=== PATIENT | male | born 1940 | race Caucasian/White ===

== ENCOUNTER 2017-05-30 09:22 | Outpatient (RCR) | payer MEDICARE, SELFPAY ==
[2017-05-30 09:46] VITALS: BP 137/86; PULSE 81; RESP 18; TEMP 36.7; BMI 34.2
--- NOTE | 2017-05-30 10:38 | HP.PCM_ITS ---
(1) Traumatic open wound of left lower leg Status: Acute Current Visit: Yes Code(s): S81.802A - Unspecified open wound , left lower leg, initial encounter (2) Open wound of left lower leg Status: Acute Current Visit: Yes Qualifiers: Code(s): S81.802A - Unspecified open wound, left lower leg, initial encounter History of Present Illness Date of Service: 05/30/17 Chief Complaint: Follow-up left lower leg injury History of Wound: 76-year-old white male that had an injury to his left lower leg that became infected and developed cellulitis was seen in the emergency room and put on clindamycin 4 times a day. Patient has a scabbed ulcer on the left lower lateral leg no sign of cellulitis no sign of discharge or smell scab is solid and not soft. Past Medical History Past Medical History: Chronic Problems Prostate ca (Chronic) Osteoarthritis (Chronic) Hypertension (Chronic) Asthma (Chronic) Diverticulosis (Chronic) HLD (hyperlipidemia) (Chronic) Pulmonary nodule (Chronic) Iron deficiency anemia (Chronic) GERD (gastroesophageal reflux disease) (Chronic) Macular degeneration (Chronic) Pleural plaque (Chronic) Rheumatoid arthritis (Chronic) Allergic rhinitis (Chronic) History of prostate cancer (Chronic) Right leg swelling (Chronic) Pain in right leg (Chronic) Penetrating injury right leg (Chronic) Obesity (Chronic) Surgical History: - - Umbilical hernia repair, appendectomy, bilateral carpal tunnel surgery, Prostatectomy, Cataract surgery, L lens implant, L knee surgery followed by LTKR, L shoulder surgery, left total hip replacement. Allergies/Adverse Reactions: Allergies indomethacin [From Indocin] Allergy (Verified 05/27/17 13:00) Itching indomethacin sodium [From Indocin] Allergy (Verified 05/27/17 13:00) Itching oxycodone HCl [From Percocet] Allergy (Verified 05/27/17 13:00) Itching Home Medications: Ambulatory Orders Medication Instructions Recorded Albuterol Sulfate [Proventil Hfa] 2 puff IH BID 07/13/13 Azelastine HCl [Astelin] 1 spray NASAL BID 07/13/13 Epinephrine [Epi Pen] 0.3 mg SC PRN PRN 07/13/13 Fluticasone 0.05% [Flonase Nasal 2 spray NASAL BID 07/13/13 [place]] Montelukast [Singulair] 10 mg PO QHS 07/13/13 Sertraline HCl [Zoloft] 150 mg PO DAILY 07/13/13 Tiotropium [place] [Spiriva 18 MCG] 1 puff INHALATION DAILY 07/13/13 Atorvastatin Calcium [Lipitor] 10 mg PO QHS 10/26/14 Lisinopril [Zestril] 20 mg PO DAILY 10/26/14 Omalizumab [Xolair] 2.4 ml SQ Q28D 10/26/14 Ferrous Sulfate 325 mg PO BID 07/14/15 Folic Acid 2 mg PO DAILY@0800 07/14/15 Methotrexate 5 mg PO Q7D 07/14/15 Multivitamin [Daily Multiple 1 each PO DAILY 07/14/15 Vitamin] Omeprazole [Prilosec] 20 mg PO DAILY 07/14/15 Polyethylene Glycol 3350 [Miralax] 17 gm PO DAILY 07/14/15 Vits A,C,E/Lutein/Minerals 1 each PO BID 07/14/15 [Ocuvite with Lutein Tablet] Fluticasone/Salmeterol [Advair Hfa 2 puff INHALATION BID 09/03/16 230-21 Mcg Inhaler] Ipratropium [Atrovent] 0.5 mg INHALATION 4X/DAY PRN 09/03/16 Doxycycline [Vibramycin] 100 mg PO BID #20 capsule 01/12/17 Guaifenesin [Mucinex] 600 mg PO BID 01/12/17 Rivaroxaban [Xarelto] 15 mg PO DAILY 01/31/17 Clindamycin HCl 300 mg PO 4X/DAY #30 cap 05/27/17 - Family History Sibling Diabetes, Renal Disease, - - Patient's father at the age of 76 with history of colon cancer myocardial infarction. Patient's mother at age of 86 with a history of breast cancer. Maternal Cancer Paternal Cancer Lives: Spouse/ Significant Other Smoking Status: Never smoker Tobacco Use: Non-smoker Alcohol: None Review of Systems Constitutional: Denies: Chills, Fever Eyes: Denies: Blurred vision, Drainage, Pain HEENT: Denies: Difficulty Hearing, Difficulty Swallowing, Sore Throat, Visual Changes Cardiovascular: Denies: Chest Pain, Palpitations, Syncope Respiratory: Denies: Cough, Shortness of Breath Gastrointestinal: Denies: Abdominal Pain, Nausea, Vomiting Genitourinary: Denies: Dysuria, Frequency Musculoskeletal: Denies: Joint Pain, Muscle pain Skin: Denies: Jaundice, Rash Neurological: Denies: Balance problems, Change in Speech, Difficulty swallowing , Focal weakness Psychiatric: Denies: Anxiety, Depression Endocrine: Denies: Change in Body Habitus Hematologic/ Lymphatic: Denies: Adenopathy - Physical Exam Vital Signs Temp Pulse Resp BP 98.0 F 81 18 137/86 H 05/30/17 09:46 05/30/17 09:46 05/30/17 09:46 05/30/17 09:46 General: Oriented x3, Cooperative, Well developed HEENT: Atraumatic, PERRLA Oral: Moist Mucosa Neck: Supple, No JVD Lungs: Clear to auscultation, Normal air movement Cardiovascular: Regular rate, Regular Rhythm Abdomen: Bowel Sounds Present, Soft, Non Tender, No Hepato-splenomegaly Extremities: No clubbing, Edema Skin: - - Scabbed ulcer left lateral lower leg Wound Measurements and Assessment - Nurse 1 - General Ulcer Measurement Start: 05/30/17 09:46 Freq: Status: Active Protocol: Activity Type Activity Date Activity User E-Sign Co-Sign Detail Recorded Client Recorded Date Recorded By Document 05/30/17 09:46 DV [id number] 05/30/17 10:04 DV 05/30/17 09:46 Wound Center Nurse 1 [Ulcer Assessment Protocol: JERRY.WD.LOC] #6 Left Lateral Calf -Combined with other wound No -Current Size (cm) - Length 2.0 -Current Size (cm) - Width 1.8 -Current Size (cm) - Depth 0.1 -Total Square Cm 3.60 -Photo Taken Yes -Epithelialization None Present -Tunneling No -Undermining/Tunneling No -Circular Undermining No -Classification - Thickness Full Thickness without Exposed Support Structure -Exudate Amt None Present (0 %) -Wound Margin Indistinct, Non -Visible -Granulation Amt None Present (0 %) -Granulation Quality N/A -Slough/Fibrin Yes -Necrosis Amt Large (67-100%) -Necrotic Tissue Type Adherent Slough -Structure Exposed N/A -Texture (Karin-wound Skin Appearance) Assessed Localized Edema -Moisture (Karin-wound Skin Appearance No Abnormality ) Assessed -Color (Karin-wound Skin Appearance) Assessed Erythema Hemosiderin Staining -Temperature (Karin-wound Skin No Abnormality Appearance) (Pt Warm) -Ulcer Cleansing Rinsed/ Irrigated with Saline -Foul Odor after Cleansing No -Anesthetic Used 5% Lidocaine Gel [Edema Assessment] -Lower Limb Edema Present Yes -Right Calf (cm) 39.8 -Right Ankle (cm) 26.1 -Left Calf (cm) 40.0 -Left Ankle (cm) 26.0 Musculoskeletal: No Tenderness to Palpation of Joints or Extremities Lymphatic: No Cervical, Supraclavicular, or Inguinal Adenopathy Neurological: Cranial nerves II-XII grossly intact, Neuro grossly intact Psych/Mental Status: Normal Affect, Appropriate Debridement Note No debridement was completed today Assessment/Plan Active Problems Open wound of left lower leg (Acute) Traumatic open wound of left lower leg (Acute) Assessment: Traumatic ulcer left lower lateral leg. Risk for falls Plan: In prep to the left lateral lower leg cover with gauze dressing. Continue the clindamycin until it done with food. Aloe up as needed
== END 2017-06-18 23:59 ==
LOC: WC 09:22
PROVIDERS: Family Provider Internal Medicine; PCP Internal Medicine; Visit Provider Nurse Practitioner
DX: S81.802A Unspecified open wound, left lower leg, initial encounter (principal); X58.XXXA Exposure to other specified factors, initial encounter; M19.90 Unspecified osteoarthritis, unspecified site; I10 Essential (primary) hypertension; E78.5 Hyperlipidemia, unspecified; J45.909 Unspecified asthma, uncomplicated; R91.1 Solitary pulmonary nodule; D50.9 Iron deficiency anemia, unspecified; K21.9 Gastro-esophageal reflux disease without esophagitis; H35.30 Unspecified macular degeneration; M79.89 Other specified soft tissue disorders; M06.9 Rheumatoid arthritis, unspecified; E66.9 Obesity, unspecified; Z85.46 Personal history of malignant neoplasm of prostate; Z68.34 Body mass index [BMI] 34.0-34.9, adult; Z71.3 Dietary counseling and surveillance; Z79.899 Other long term (current) drug therapy; Z79.51 Long term (current) use of inhaled steroids; Z79.01 Long term (current) use of anticoagulants
CPT/HCPCS: 99212; G0463

== ENCOUNTER 2017-06-22 07:20 | Emergency (ER) | payer MEDICARE, SELFPAY ==
[2017-06-22 07:21] VITALS: BP 141/69; PULSE 109; RESP 16; TEMP 37.5; O2SAT 94; BMI 34.4
--- NOTE | 2017-06-22 07:32 | EKG12_ITS ---
Test Reason : SOB Blood Pressure : / mmHG Vent. Rate : 103 BPM Atrial Rate : 103 BPM P-R Int : 116 ms QRS Dur : 094 ms QT Int : 326 ms P-R-T Axes : 035 048 012 degrees QTc Int : 427 ms Sinus tachycardia Otherwise normal ECG Confirmed by SINAI MOULTON, JAMES ([id number]), rewrite editor YARON WOODS ([id number]) on 06/24/2017 10:09:14 AM Referred By: HAMMAD Confirmed By:JAMES RAWLS MD
--- NOTE | 2017-06-22 07:32 | RAD_ITS ---
STUDY: X-RAY CHEST REASON FOR EXAM: Male, 76 years old. Shortness of breath. TECHNIQUE: PA and lateral views of the chest. COMPARISON: July 14, 2015. FINDINGS: There is mild elevation of the right hemidiaphragm. The left lung is expanded. There is interstitial thickening visible in both lungs. There is left basilar airspace consolidation. There are multiple calcifications probably related to calcified pleural plaques. This is unchanged since the previous radiograph. There is borderline cardiomegaly. Normal mediastinum and mamadou. Normal visualized pulmonary arteries. There is atherosclerotic calcification of the aortic arch with tortuosity. There is demineralization of the osseous structures. The patient has had previous surgery on the left shoulder. There is no demonstrated abnormality of the visualized soft tissue structures of the upper abdomen. RAD/Chest PA and Lateral IMPRESSION: 1. Patchy left basilar airspace consolidation possibly representing pneumonia. 2. Unchanged appearance to calcified pleural plaques. Electronically Signed: Yessenia Joya MD at 8:54 EST , Service support ,
--- NOTE | 2017-06-22 07:36 | ED.VISSUMM ---
- ER Visit Summary Date of Service: 06/22/17 Chief Complaint: Shortness of breath History of Present Illness: The patient is a 76 M with progressive shortness of breath for the past 2 days, especially with exertion. Patient denies chest pain. He has had mild cough with clear sputum. He has had mild wheezing. He uses albuterol inhalers approximately 4 hours. Past history significant for asthma, hypertension, high cholesterol, and PE. He is currently on Xarelto. Physical Examination: Blood pressure is 141/69, temperature 99.5, heart rate 109, respiratory rate 16, pulse ox 94% on room air. Patient is an obese gentleman sitting upright in bed. He is in no acute distress and is speaking full sentences. Head and neck examination is normal. Heart is regular rate and rhythm. Lung sounds are with occasional expiratory wheeze. Overall good air movement throughout. Abdomen is soft nontender. Lower external examination reveals no significant calf tenderness or edema. Test Results: EKG is sinus tach at [address] change. CBC was normal white count with a left shift. Chemistry studies are gross unremarkable. Troponin is less than 0.02. BNP is normal. Two-view chest x-ray reveals patchy left basilar consolidation possibly representing pneumonia. Unchanged calcified plaques are noted. Emergency Department Course and Treatment: Patient is given a DuoNeb treatment. On repeat evaluation had slight increased wheezing but better air movement throughout. Additional albuterol was given along with p.o. Levaquin. Patient was ambulated. His pulse ox dropped to 91% with ambulation the patient was conversational throughout. Patient be treated with 4 additional days of Levaquin. He has albuterol at home that he will use. He is encouraged to return if he worsens. Treatment Plan: [] Disposition: Discharge Impression: Community acquired pneumonia This note was generated with [employer] dictation software. It may contain incorrect words, spelling, and punctuation that were not noted in review of the chart prior to signing ED Disposition - Plan for ED Patient: Chief Complaint: Shortness of Breath Referrals: Lambert Larios MD [Primary Care Provider] -
[2017-06-22] MEDS: Ipratropium/Albuterol Sulfate 3 ML AMPUL.NEB INHALATION (07:45)
[2017-06-22 07:46] VITALS: O2SAT 94
[2017-06-22 07:48] VITALS: PULSE 93; RESP 18
[2017-06-22 07:56] LABS: Absolute Lymphocyte Count 0.59 X10^3/ul (0.83-4.51); Absolute Neutrophil Count 7.4 X10^3/uL (2.0-7.7); Basophil# 0.01 X10^3/uL; Basophil% 0.1 % (0-1); Eosinophil# 0.02 X10^3/uL; Eosinophils% 0.2 % (0-5); Hematocrit 39.5 % (40-54); Hemoglobin 12.7 g/dl (13.0-16.5); Lymphocyte # 0.59 X10^3/ul (4.0); Lymphocyte % 6.5 % (19-41); Mean Corp Hgb Conc 32.2 g/gl (32-36); Mean Platelet Vol. 9.8 fl (6.2-12.0); Monocyte# 0.96 X10^3/uL; Monocyte% 10.6 % (0-10); Neutrophil # 7.42 X10^3/uL (2.7-7.7); Neutrophil % 82.4 % (47-70); Platelet Count 147 K/mm3 (150-450); RBC Distribution Width CV 16.3 % (11.6-14.6); RBC Distribution Width SD 51.9 fl (35.1-43.9); Red Blood Count 4.54 M/mm3 (4.6-6.2)
[2017-06-22 07:57] LABS: Differential Indicated SCAN CRITERIA MET; POSITIVE COUNT NO; POSITIVE DIFFERENTIAL YES; POSITIVE MORPHOLOGY NO
[2017-06-22 08:06] LABS: Anion Gap 10 (5-15); BUN 20 mg/dL (7-18); BUN/Creat Ratio 16.3 RATIO (10-20); Calcium,Total 8.9 mg/dL (8.5-10.1); Chloride 103 mmol/L (98-107); Creatinine, Serum 1.23 mg/dL (0.70-1.30); EST Glomerular Filtration Rate 60 mL/min (>60); Est Glom Filt Rate - Afr Amer 73 mL/min (>60); Estimated Creatinine Clearance 44.67 ml/min; Glucose 138 mg/dL (74-106); Sodium Level 135 mmol/L (136-145)
[2017-06-22 08:20] LABS: BNP,B-Type NATRIURETIC PEPTIDE 27.7 pg/mL (0-100)
[2017-06-22 08:31] VITALS: PULSE 111; RESP 18
[2017-06-22] MEDS: Albuterol 2.5 MG/3 ML VIAL.NEB. INHALATION (08:31)
[2017-06-22] MEDS: levoFLOXacin 750 MG Tablet PO (09:04)
--- NOTE | 2017-06-22 09:04 | ED.DEP ---
ED Disposition - Plan for ED Patient: Disposition: Home or Assisted Living Chief Complaint: Shortness of Breath Instructions: ED Pneumonia Adult Prescriptions: Levofloxacin [Levaquin] 750 mg PO DAILY #4 tablet Referrals: Lambert Larios MD [Primary Care Provider] - 1 Week
[2017-06-22 09:13] VITALS: BP 145/89; PULSE 95; RESP 16; O2SAT 97
== END 2017-06-22 09:23 | disposition home or self-care (01) ==
PROVIDERS: Emergency Provider Emergency Medicine; Family Provider Internal Medicine; PCP Internal Medicine
DX: J18.9 Pneumonia, unspecified organism (principal); J45.909 Unspecified asthma, uncomplicated; I10 Essential (primary) hypertension; E78.00 Pure hypercholesterolemia, unspecified; Z86.711 Personal history of pulmonary embolism; Z79.01 Long term (current) use of anticoagulants; F41.9 Anxiety disorder, unspecified; E66.9 Obesity, unspecified; Z68.34 Body mass index [BMI] 34.0-34.9, adult; Z85.46 Personal history of malignant neoplasm of prostate; Z79.899 Other long term (current) drug therapy
CPT/HCPCS: 71046; 80048; 83880; 84484; 85025; 93005; 94640; 99285; A4216

== ENCOUNTER → 2017-07-10 13:57 | Outpatient (CLI) | payer MEDICARE, SELFPAY ==
[2017-07-10 15:51] LABS: ALB/GLOB Ratio 0.8 RATIO (0.9-2.4); AST(SGOT) 28 U/L (15-37); Alanine Aminotransfer ALT/SGPT 36 U/L (16-61); Albumin, Serum 3.4 g/dL (3.2-5.0); Alkaline Phosphatase 77 U/L (45-117); Anion Gap 7 (5-15); BUN 25 mg/dL (7-18); BUN/Creat Ratio 23.6 RATIO (10-20); Calcium,Total 8.7 mg/dL (8.5-10.1); Chloride 106 mmol/L (98-107); Creatinine, Serum 1.06 mg/dL (0.70-1.30); EST Glomerular Filtration Rate 72 mL/min (>60); Est Glom Filt Rate - Afr Amer 87 mL/min (>60); Globulin 4.3 g/dL (2.2-4.2); Glucose 101 mg/dL (74-106); Potassium 4.7 mmol/L (3.5-5.1); Protein, Total 7.7 g/dL (6.4-8.2); Sodium Level 137 mmol/L (136-145)
[2017-07-10 16:09] LABS: Absolute Lymphocyte Count 1.23 X10^3/ul (0.83-4.51); Basophil# 0.01 X10^3/uL; Basophil% 0.1 % (0-1); Eosinophil# 0.07 X10^3/uL; Hematocrit 40.1 % (40-54); Hemoglobin 12.7 g/dl (13.0-16.5); Lymphocyte # 1.23 X10^3/ul (4.0); Lymphocyte % 17.5 % (19-41); Mean Corp Hgb Conc 31.7 g/gl (32-36); Mean Corpuscular Hgb 28.1 pg (27.0-32.0); Mean Corpuscular Volume 88.7 fL (80-94); Mean Platelet Vol. 10.4 fl (6.2-12.0); Monocyte# 0.65 X10^3/uL; Monocyte% 9.3 % (0-10); Neutrophil # 5.01 X10^3/uL (2.7-7.7); Neutrophil % 71.4 % (47-70); Platelet Count 230 K/mm3 (150-450); RBC Distribution Width CV 15.7 % (11.6-14.6); RBC Distribution Width SD 50.3 fl (35.1-43.9); Red Blood Count 4.52 M/mm3 (4.6-6.2)
[2017-07-10 16:10] LABS: POSITIVE COUNT NO; POSITIVE DIFFERENTIAL NO; POSITIVE MORPHOLOGY NO
== END ==
PROVIDERS: Family Provider Internal Medicine; PCP Internal Medicine; Visit Provider Internal Medicine Rheumatology
DX: M05.79 Rheumatoid arthritis with rheumatoid factor of multiple sites without organ or systems involvement (principal); M17.0 Bilateral primary osteoarthritis of knee; M18.0 Bilateral primary osteoarthritis of first carpometacarpal joints; Z79.899 Other long term (current) drug therapy
CPT/HCPCS: 36415; 80053; 85025

== ENCOUNTER 2017-09-05 15:02 | Emergency (ER) | payer MEDICARE, SELFPAY ==
[2017-09-05 15:03] VITALS: BP 132/77; PULSE 112; RESP 18; TEMP 36.8; O2SAT 97; BMI 38.5
--- NOTE | 2017-09-05 15:13 | EKG12_ITS ---
Test Reason : Blood Pressure : / mmHG Vent. Rate : 107 BPM Atrial Rate : 107 BPM P-R Int : 128 ms QRS Dur : 082 ms QT Int : 326 ms P-R-T Axes : 052 058 050 degrees QTc Int : 435 ms Sinus tachycardia Otherwise normal ECG Confirmed by SINAI MOULTON, JAMES ([id number]), manuscript editor YARON WOODS ([id number]) on 09/08/2017 2:21:58 PM Referred By: Prasanth Meier Confirmed By:JAMES RAWLS MD
[2017-09-05 15:17] VITALS: PULSE 108
[2017-09-05] MEDS: Ondansetron 4 MG/2 ML Vial IV (15:20)
[2017-09-05] MEDS: Morphine 2 MG/ML Syringe IV (15:20)
[2017-09-05] MEDS: 0.9% Normal Saline 1,000 ML 150 ML IV (15:20)
[2017-09-05] MEDS: Diphth,Pertuss(Acell),Tet Vac 0.5 ML Vial IM (15:21)
[2017-09-05 15:28] LABS: Anion Gap 7 (5-15); BUN 28 mg/dL (7-18); BUN/Creat Ratio 20.7 RATIO (10-20); Calcium,Total 8.2 mg/dL (8.5-10.1); Chloride 110 mmol/L (98-107); Creatinine, Serum 1.35 mg/dL (0.70-1.30); EST Glomerular Filtration Rate 54 mL/min (>60); Est Glom Filt Rate - Afr Amer 66 mL/min (>60); Estimated Creatinine Clearance 37.76 ml/min; Glucose 167 mg/dL (74-106); International Normalized Ratio 1.7; Potassium 5.2 mmol/L (3.5-5.1); Prothrombin Time (Protime)PT. 19.8 SECONDS (11.7-14.9); Sodium Level 139 mmol/L (136-145)
[2017-09-05 15:29] LABS: Partial Thromboplast Time 41.1 Seconds (24.1-36.2)
--- NOTE | 2017-09-05 15:30 | RAD_ITS ---
STUDY: X-RAY - LEFT TIBIA AND FIBULA REASON FOR EXAM: Male, 76 years old. Soft tissue injury. TECHNIQUE: 4 view(s) of the tibia and fibula were obtained. COMPARISON: None. FINDINGS: Normal visualized tibia. Normal visualized fibula. Small plantar spur. 2. Patient status post total knee replacement. Soft tissue injury and laceration overlying the lateral aspect of the leg. The bony structures are unremarkable. RAD/Tibia & Fibula 2 Views IMPRESSION: Soft tissue injury and laceration. No radiopaque foreign body is seen. Electronically Signed: Antonio Kahn MD at 15:50 EDT Tel [phone], Service support ,
[2017-09-05 15:36] LABS: Absolute Lymphocyte Count 0.64 X10^3/ul (0.83-4.51); Absolute Neutrophil Count 6.7 X10^3/uL (2.0-7.7); Basophil# 0.01 X10^3/uL; Basophil% 0.1 % (0-1); Eosinophil# 0.01 X10^3/uL; Eosinophils% 0.1 % (0-5); Hematocrit 36.3 % (40-54); Hemoglobin 11.5 g/dl (13.0-16.5); Lymphocyte # 0.64 X10^3/ul (4.0); Lymphocyte % 8.1 % (19-41); Mean Corp Hgb Conc 31.7 g/gl (32-36); Mean Corpuscular Hgb 28.3 pg (27.0-32.0); Mean Corpuscular Volume 89.4 fL (80-94); Mean Platelet Vol. 10.1 fl (6.2-12.0); Monocyte# 0.55 X10^3/uL; Monocyte% 6.9 % (0-10); Neutrophil # 6.69 X10^3/uL (2.7-7.7); Neutrophil % 84.2 % (47-70); Platelet Count 167 K/mm3 (150-450); RBC Distribution Width CV 15.2 % (11.6-14.6); RBC Distribution Width SD 49.2 fl (35.1-43.9); Red Blood Count 4.06 M/mm3 (4.6-6.2)
[2017-09-05 15:50] LABS: POSITIVE COUNT NO; POSITIVE DIFFERENTIAL NO; POSITIVE MORPHOLOGY NO
[2017-09-05] MEDS: Cefazolin 2 GM in 0.9% Normal Saline 100 ML IV (16:14)
--- NOTE | 2017-09-06 00:47 | ED.DCSUM_ITS ---
- ER Visit Summary Date of Service: 09/06/17 Chief Complaint: Leg laceration History of Present Illness: The patient is a 76 M who was outside when he sustained a mechanical fall falling on a steel rake. He caused laceration to his left lateral leg. He is on Xarelto for pulmonary embolism. EMS applied pressure control bleeding and brought him to the emergency room. Tetanus is unknown. Physical Examination: Afebrile slightly tachycardic at 108. He is normotensive. Left lateral leg shows an approximately 29 cm laceration through subcutaneous tissue. It does not appear to violate the muscle fascia. There is no exposed bone. There is no active bleeding. Patient has strong dorsalis pedis and posterior tibial pulses. Neurovascularly intact distally. He does have lymphedema slightly pitting. Test Results: Tib-fib films were negative for fracture. Basic labs negative. Emergency Department Course and Treatment: Patient received IV fluids and Ancef. His tetanus was updated. Plastic surgery is unavailable at this time. We irrigated the wound with approximately 1000 cc of sterile saline. The wound was locally anesthetized using small amount of 1% lidocaine. Part of the wound was under significant tension and horizontal mattresses were applied to help remove the tension. Then simple interrupted sutures were then used to close the wound. All the wound was able to be approximated except for about 1-2 to meters on the middle of the wound. The wound was dressed. To limit movement of the skin in the tissue he was placed in a boot orthosis. This was done because as the patient continuously move his foot up and down he would cause tearing of the thin skin around the sutures. He will be placed on Keflex. He has been seen at the wound clinic before and have advised him to follow-up there. Impression: 1. 29 cm left leg laceration with repair 2. Tetanus update This note was generated with [employer] dictation software. It may contain incorrect words, spelling, and punctuation that were not noted in review of the chart prior to signing ED Disposition - Plan for ED Patient: Chief Complaint: Trauma Referrals: Lambert Larios MD [Primary Care Provider] -
--- NOTE | 2017-09-06 01:17 | ED.RN ---
see computer down time charting from [id number]
== END 2017-09-05 18:30 | disposition home or self-care (01) ==
LOC: ED 15:34
PROVIDERS: Emergency Provider Emergency Medicine; Family Provider Internal Medicine; PCP Internal Medicine
DX: S81.812A Laceration without foreign body, left lower leg, initial encounter (principal); W26.8XXA Contact with other sharp object(s), not elsewhere classified, initial encounter; I10 Essential (primary) hypertension; K21.9 Gastro-esophageal reflux disease without esophagitis; D50.9 Iron deficiency anemia, unspecified; E66.9 Obesity, unspecified; Z68.38 Body mass index [BMI] 38.0-38.9, adult; Z86.711 Personal history of pulmonary embolism; Z79.01 Long term (current) use of anticoagulants; Z79.899 Other long term (current) drug therapy; Z85.46 Personal history of malignant neoplasm of prostate
CPT/HCPCS: 12006; 73590; 80048; 85025; 85610; 85730; 90471; 90715; 93005; 96365; 96375; 99285; A4216; J2405

== ENCOUNTER 2017-09-09 22:52 | Inpatient (IN) | payer MEDICARE, SELFPAY ==
[2017-09-09 22:53] VITALS: BP 123/62; PULSE 97; RESP 16; TEMP 36.6; O2SAT 96; BMI 36.3
[2017-09-09 23:45] LABS: Absolute Lymphocyte Count 0.68 X10^3/ul (0.83-4.51); Basophil# 0.01 X10^3/uL; Basophil% 0.2 % (0-1); Eosinophil# 0.12 X10^3/uL; Eosinophils% 2.2 % (0-5); Hematocrit 29.1 % (40-54); Hemoglobin 9.5 g/dl (13.0-16.5); Lymphocyte # 0.68 X10^3/ul (4.0); Lymphocyte % 12.5 % (19-41); Mean Corp Hgb Conc 32.6 g/gl (32-36); Mean Corpuscular Hgb 29.1 pg (27.0-32.0); Mean Platelet Vol. 9.9 fl (6.2-12.0); Monocyte# 0.63 X10^3/uL; Monocyte% 11.5 % (0-10); Neutrophil # 3.95 X10^3/uL (2.7-7.7); Neutrophil % 72.3 % (47-70); POSITIVE COUNT NO; POSITIVE DIFFERENTIAL NO; POSITIVE MORPHOLOGY NO; Platelet Count 187 K/mm3 (150-450); RBC Distribution Width CV 15.2 % (11.6-14.6); RBC Distribution Width SD 48.6 fl (35.1-43.9); Red Blood Count 3.27 M/mm3 (4.6-6.2); White Blood Count 5.5 K/mm3 (4.4-11.0)
[2017-09-09 23:58] LABS: Anion Gap 7 (5-15); BUN 38 mg/dL (7-18); BUN/Creat Ratio 22.8 RATIO (10-20); Calcium,Total 8.6 mg/dL (8.5-10.1); Chloride 107 mmol/L (98-107); Creatinine, Serum 1.67 mg/dL (0.70-1.30); EST Glomerular Filtration Rate 42 mL/min (>60); Est Glom Filt Rate - Afr Amer 51 mL/min (>60); Estimated Creatinine Clearance 30.53 ml/min; Glucose 113 mg/dL (74-106); Sodium Level 138 mmol/L (136-145)
[2017-09-10] VITALS (9 sets, daily range): BP systolic 118–146; BP diastolic 54–72; PULSE 72–108; RESP 16–18; TEMP 36.6–36.7; O2SAT 95–100; BMI 36.3
--- NOTE | 2017-09-10 00:29 | ED.VISSUMM ---
- ER Visit Summary Date of Service: 09/10/17 Chief Complaint: Wound check History of Present Illness: The patient is a 76 M who 4 days ago had a large left leg laceration which was closed but there is note of tension on the wound and was only to be completely closed. He states that he was prescribed prophylactic antibiotics. He has an appointment with wound care in 2 days. However over the past 3 days he has had clear and yellow drainage from the wound as well as foul odor. He has noticed swelling and redness. He denies systemic symptoms such as fevers nausea vomiting. Physical Examination: Blood pressure 123/62 temperature 97.9 heart rate 97 respiratory rate 16 Patient resting comfortably no distress Heart regular Lungs clear There is a large left leg laceration with an open wound there is a foul odor I do not appreciate active drainage currently the lower leg is very erythematous and hot to the touch and he has left foot edema there is a strong dorsalis pedis Doppler signal I could not palpate this easily due to edema Test Results: Laboratory studies notable for hemoglobin of 9.5 and creatinine of 1.67 which does appear to be slightly increased from baseline. Emergency Department Course and Treatment: Patient was treated with IV fluids and Unasyn. To the large extent of the cellulitis as well as wound infection and the fact that he has developed infection despite prophylactic oral antibiotics I do feel he needs admitted for IV antibiotics. Patient to be discussed with the hospitalist and admitted. Treatment Plan: [] Disposition: Admit Impression: Left leg cellulitis Wound infection This note was generated with [employer] dictation software. It may contain incorrect words, spelling, and punctuation that were not noted in review of the chart prior to signing ED Disposition - Plan for ED Patient: Chief Complaint: Wound Check Referrals: Lambert Larios MD [Primary Care Provider] -
--- NOTE | 2017-09-10 00:41 | HP.PCM_ITS ---
Problem List (1) Cellulitis of left leg Status: Acute (2) Avulsion of skin Status: Chronic (3) Avulsion of skin of hand Status: Chronic Qualifiers: Encounter type: subsequent encounter (4) Avulsion of skin of right lower leg Status: Acute Qualifiers: Encounter type: subsequent encounter (5) Open wound Status: Acute (6) Open wound of left lower leg Status: Acute Qualifiers: (7) Traumatic open wound of left lower leg Status: Acute (8) Allergic rhinitis Status: Chronic (9) Asthma Status: Chronic (10) Diverticulosis Status: Chronic (11) GERD (gastroesophageal reflux disease) Status: Chronic (12) HLD (hyperlipidemia) Status: Chronic (13) History of prostate cancer Status: Chronic (14) Hypertension Status: Chronic Qualifiers: Hypertension type: essential hypertension (15) Iron deficiency anemia Status: Chronic (16) Macular degeneration Status: Chronic (17) Obesity Status: Chronic Qualifiers: Obesity type: due to excess calories (18) Osteoarthritis Status: Chronic (19) Pain in right leg Status: Chronic (20) Penetrating injury right leg Status: Chronic (21) Pleural plaque Status: Chronic (22) Prostate ca Status: Chronic (23) Pulmonary nodule Status: Chronic (24) Rheumatoid arthritis Status: Chronic (25) Right leg swelling Status: Chronic (26) Abscess of right leg Status: Resolved History of Present Illness Date of Admission: 09/10/17 Chief Complaint: Left leg cellulitis The patient is a 76 year old M with history of PE on Xarelto since 2017, 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 Patient denies fever, nausea or vomiting. He was seen about 4 days ago with large left leg laceration wound which happened as he fell on the shovel accidentally after his right leg was caught. He was sent home on Keflex. His wound documented as 29 cm laceration through subcutaneous tissue with no exposed bone. He required about 24 sutures. X-ray at that time showed soft tissue injury with laceration but no involvement of bone. In the ER today, patient was given Unasyn in the ER. Initial blood work shows increase in creatinine from 1.35-1.67, BUN 38 but no leukocytosis. [] Past Medical History Past Medical History (Chronic Problems): Chronic Problems Iron deficiency anemia (Chronic) Pulmonary nodule (Chronic) HLD (hyperlipidemia) (Chronic) Diverticulosis (Chronic) Asthma (Chronic) Hypertension (Chronic) Avulsion of skin (Chronic) Avulsion of skin of hand (Chronic) Obesity (Chronic) Osteoarthritis (Chronic) Penetrating injury right leg (Chronic) Pain in right leg (Chronic) Right leg swelling (Chronic) History of prostate cancer (Chronic) Allergic rhinitis (Chronic) Rheumatoid arthritis (Chronic) Pleural plaque (Chronic) Macular degeneration (Chronic) GERD (gastroesophageal reflux disease) (Chronic) Prostate ca (Chronic) Allergies indomethacin [From Indocin] Allergy (Verified 09/09/17 22:56) Itching indomethacin sodium [From Indocin] Allergy (Verified 09/09/17 22:56) Itching oxycodone HCl [From Percocet] Allergy (Verified 09/09/17 22:56) Itching Home Medications: Ambulatory Orders Medication Instructions Recorded Albuterol Sulfate [Proventil Hfa] 2 puff IH BID 07/13/13 Azelastine HCl [Astelin] 2 spray NASAL BID 07/13/13 Fluticasone 0.05% [Flonase Nasal 2 spray NASAL BID 07/13/13 [place]] Montelukast [Singulair] 10 mg PO QHS 07/13/13 Sertraline HCl [Zoloft] 150 mg PO DAILY 07/13/13 Tiotropium [place] [Spiriva 18 MCG] 1 puff INHALATION DAILY 07/13/13 Atorvastatin Calcium [Lipitor] 10 mg PO QHS 10/26/14 Lisinopril [Zestril] 20 mg PO DAILY 10/26/14 Ferrous Sulfate 325 mg PO BID 07/14/15 Multivitamin [Daily Multiple 1 each PO DAILY 07/14/15 Vitamin] Omeprazole [Prilosec] 20 mg PO DAILY 07/14/15 Polyethylene Glycol 3350 [Miralax] 17 gm PO DAILY 07/14/15 Ipratropium [Atrovent] 0.5 mg INHALATION 4X/DAY PRN 09/03/16 Guaifenesin [Mucinex] 600 mg PO BID 01/12/17 Rivaroxaban [Xarelto] 20 mg PO DAILY 01/31/17 Fluticasone/Salmeterol [Advair Hfa 2 puff INHALATION BID 06/22/17 230-21 Mcg Inhaler] Leflunomide 10 mg PO DAILY 06/22/17 Nystatin/Triamcin Cream [Mycolog] 1 applic TOPICAL BID 06/22/17 Surgical History: - - Umbilical hernia repair, appendectomy, bilateral carpal tunnel surgery, Prostatectomy, Cataract surgery, L lens implant, L knee surgery followed by LTKR, L shoulder surgery, left total hip replacement. Smoking Status: Never smoker - *Family History Sibling History Items: Diabetes, Renal Disease, - - Patient's father at the age of 76 with history of colon cancer myocardial infarction. Patient's mother at age of 86 with a history of breast cancer. Maternal History Items: Cancer Paternal History Items: Cancer Review of Systems Constitutional: Denies: Chills, Fever, Weight Change HEENT: Denies: Head Aches, Sinus Congestion, Sinus Drainage Cardiovascular: Denies: Chest Pain, Palpitations Respiratory: Denies: Cough, Shortness of breath at rest, Sputum production Gastrointestinal: Denies: Abdominal Pain, Nausea, Vomiting Genitourinary: Denies: Dysuria Musculoskeletal: Reports: Leg Pain, Muscle pain. Denies: Joint Pain, Joint Tenderness Skin: Reports: Wounds - Large wound as described. Denies: Rash Neurological: Denies: Numbness, Tingling, Focal weakness Psychiatric: Denies: Anxiety, Depression, Homicidal Ideations, Suicidal Ideations Hematologic/ Lymphatic: Reports: Easy Bruising. Denies: Easy Bleeding VTE Information - Inpt Only VTE Present on Admission: No VTE Mechan Device Prophylaxis: SCD's VTE Pharm Prophylaxis ordered?: Yes Patient Problems: Active and Suspected Problems Cellulitis of left leg (Acute) - Physical Exam General: Alert, Oriented x3, Cooperative HEENT: Atraumatic, PERRLA, EOMI, Normocephalic Neck: Supple, No JVD, Negative Carotid Bruits Lungs: Clear to auscultation, Normal air movement, No rhonchi, No wheeze, No rales Cardiovascular: Regular rate, Regular Rhythm, Normal S1, Normal S2, No murmurs Abdomen: Bowel Sounds Present, Soft, Non Tender, Non-Distended Extremities: Capillary Refill Less than 3 Seconds, Edema Skin: No rashes, No breakdown, - - Large wound, sutured in the left leg lateral aspect covered with dressing and Tushar wrap bandage applied in ER. Mucopurulent discharge with the small areas open Musculoskeletal: No Tenderness to Palpation of Joints or Extremities Neurological: Cranial nerves II-XII grossly intact Psych/Mental Status: Normal Affect, Appropriate Vital Signs Temp Pulse Resp BP Pulse Ox 97.9 F 72 16 124/62 H 97 09/09/17 22:53 09/10/17 00:34 09/10/17 00:34 09/10/17 00:34 09/10/17 00:34 Oxygen Delivery Method Room Air Weight: 212 lb Body Mass Index (BMI) 36.3 Laboratory Tests Past 24 Hrs 09/09/17 09/09/17 23:30 23:30 WBC 5.5 RBC 3.27 L Hgb 9.5 L Hct 29.1 L MCV 89.0 MCH 29.1 MCHC 32.6 RDW 15.2 H RDW Differential 48.6 H Plt Count 187 MPV 9.9 Immature Gran % (Auto) 1.300 H Neut % (Auto) 72.3 H Lymph % (Auto) 12.5 L Bartholomew % (Auto) 11.5 H Eos % (Auto) 2.2 Baso % (Auto) 0.2 Absolute Neuts (auto) 4.0 Absolute Lymphs (auto) 0.68 L Total Counted Not Reportable Sodium 138 Potassium 5.0 Chloride 107 Carbon Dioxide 24.0 Anion Gap 7 BUN 38 H Creatinine 1.67 H Estim Creat Clear Calc 30.53 Est GFR (MDRD) Af Amer 51 L Est GFR (MDRD) Non-Af 42 L BUN/Creatinine Ratio 22.8 H Glucose 113 H Calcium 8.6 Assessment/Plan Active and Suspected Problems Cellulitis of left leg (Acute) The patient is a 76 year old M with history of PE on Xarelto since 2017, 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 Patient denies fever, nausea or vomiting. He was seen about 4 days ago with large left leg laceration wound which happened as he fell on the shovel accidentally after his right leg was caught. He was sent home on Keflex. His wound documented as 29 cm laceration through subcutaneous tissue with no exposed bone. He required about 24 sutures. X-ray at that time showed soft tissue injury with laceration but no involvement of bone. In the ER today, patient was given Unasyn in the ER. Initial blood work shows increase in creatinine from 1.35-1.67, BUN 38 but no leukocytosis. [] 1. Large left leg cellulitis with possibility of deep fasciitis secondary to infected lacerated wound status post suture 4 days ago: Patient is being admitted in regular floor. On IV fluid normal saline. Started on IV Zosyn and clindamycin for broad-spectrum coverage of gram-negative anaerobes, and anaerobes. 1 dose of IV vancomycin ordered until MRSA is ruled out. MRSA nasal screen. Wound culture. Blood cultures ?2 ordered. ID and infectious disease consult. Repeat left leg x-rays ordered; and if there is suspicion will need CT scan/MRI. Patient is already on Xarelto. 2. Acute kidney injury on CKD stage III: Patient's creatinine went up from 1.35 -1.67 last 4 days with BUN from 28-38. On IV fluid normal saline. Monitor electrolytes and kidney function. 3. Other chronic comorbidities include COPD on inhalers, recent history of PE on Xarelto, chronic iron deficiency anemia, dyslipidemia, hypertension obesity, history of prostate cancer, rheumatoid arthritis, GERD and macular degeneration : Home medication reconciliation done. Multiple comorbidities complicates the present care. DVT prophylaxis: On Xarelto. This note was generated with [employer] dictation software. Every effort was made to ensure accuracy, however computerized supervisor burling and joining mistakes may persist. Code Visit Inpatient E&M: 26177 In Hosp L3
--- NOTE | 2017-09-10 02:26 | RAD_ITS ---
STUDY: X-RAY - LEFT TIBIA AND FIBULA REASON FOR EXAM: Male, 76 years old. Large laceration x5 days ago, redness, possible infection. TECHNIQUE: 3 view(s) of the tibia and fibula were obtained. COMPARISON: 09/05/2017 FINDINGS: Status post total knee replacement. There is demineralization of osseous structures. There is atherosclerosis. There is arthrosis of the visualized proximal tibial fibular articulation. Soft tissue irregularity, lucency and edema involving the lateral greater than medial mid tibial level. There is no radiopaque foreign body. RAD/Tibia & Fibula 2 Views IMPRESSION: Soft tissue changes as above. There is no radiopaque foreign body. There is no acute displaced fracture or dislocation. Other nonacute findings as outlined above. Electronically Signed: Cindi Bernal MD at 6:06 EDT , Service support ,
[2017-09-10 02:42] LABS: International Normalized Ratio 1.6; Prothrombin Time (Protime)PT. 19.4 SECONDS (11.7-14.9)
[2017-09-10 02:43] LABS: Partial Thromboplast Time 55.4 Seconds (24.1-36.2)
[2017-09-10 02:55] LABS: AST(SGOT) 31 U/L (15-37); Alanine Aminotransfer ALT/SGPT 28 U/L (16-61); Albumin, Serum 2.7 g/dL (3.2-5.0); Alkaline Phosphatase 71 U/L (45-117); Bilirubin, Direct 0.15 mg/dL (0.00-0.30); Globulin 4.1 g/dL (2.2-4.2); Protein, Total 6.8 g/dL (6.4-8.2)
[2017-09-10 03:30] LABS: Erythrocyte Sedimentation Rate 66 mm/hr (0-20)
[2017-09-10 03:35] LABS: Lactic Acid 0.8 mmol/L (0.4-2.0)
[2017-09-10] MEDS: 0.9% NaCl Peripheral Flush Adult/Peds IV (03:49)
[2017-09-10] MEDS: Clindamycin 900 MG/50 ML BAG 75 MG IV (03:49)
[2017-09-10] MEDS: Piperacil/Tazobactam 3.375 GM/50 ML ML IV (05:12)
--- NOTE | 2017-09-10 05:29 | PCM.RX.CS ---
Consult Pharmacy has been consulted to manage selected antiobiotic: Vancomycin Type of Consult: New start Suspected Infection: Skin/Soft tissue Prior Doses of Antibiotics Received/Current Regimen: Medications Vancomycin HCl (Vancomycin) 1,000 mg in 200 mls @ 200 mls/hr IV Q24H SWATHI Discontinued Medications Vancomycin HCl 1,750 mg/ (Dextrose) 535 mls @ 250 mls/hr IV RX TO DOSE ONE Stop: 09/10/17 04:34 Last Admin: 09/10/17 03:50 Dose: 250 mls/hr Labs: Sodium 138 mmol/L (136-145) 09/09/17 23:30 Potassium 5.0 mmol/L (3.5-5.1) 09/09/17 23:30 Chloride 107 mmol/L (98-107) 09/09/17 23:30 Carbon Dioxide 24.0 mmol/L (21.0-32.0) 09/09/17 23:30 Anion Gap 7 (5-15) 09/09/17 23:30 BUN 38 mg/dL (7-18) H 09/09/17 23:30 Creatinine 1.67 mg/dL (0.70-1.30) H 09/09/17 23:30 Est GFR (MDRD) Af Amer 51 mL/min (>60) L 09/09/17 23:30 Est GFR (MDRD) Non-Af 42 mL/min (>60) L 09/09/17 23:30 BUN/Creatinine Ratio 22.8 RATIO (10-20) H 09/09/17 23:30 Glucose 113 mg/dL (74-106) H 09/09/17 23:30 Weight used for dosin.4 kg Estimated Creatinine Clearance: 42 Goal Trough: 10-15 mcg/mL Pharmacy Plan for Drug Dosing: Pharmacy Service will continue to monitor and adjust dosing as required. Follow-Up Labs: Trough Vancomycin Labs to be done on [date and time ordered]: 09/13/17 @4343
[2017-09-10] MEDS: Budesonide Respules 0.5 MG/2 ML AMPUL.NEB. INHALATION ×2 (06:49→19:40)
[2017-09-10] MEDS: Ipratropium/Albuterol Sulfate 3 ML AMPUL.NEB INHALATION ×2 (06:49→19:40)
[2017-09-10 06:55] LABS: Bedside Glucose 149 mg/dL (70-110)
[2017-09-10] MEDS: Ferrous Sulfate 325 MG Tablet PO ×2 (08:22→16:07)
[2017-09-10] MEDS: Multivitamins,Therapeutic Tablet 1 TABLET PO (08:22)
[2017-09-10 09:19] LABS: Hemoglobin A1c 6.9 % (4.2-6.3)
[2017-09-10] MEDS: Fluticasone 0.05% 1 SPRAY NASAL.SRY 2 SPRAY NASAL ×2 (09:51→22:48)
[2017-09-10] MEDS: Azelastine HCl NASAL.SRY 2 SPRAY NASAL ×2 (09:53→22:47)
[2017-09-10] MEDS: Leflunomide 10 MG TABLET PO (09:55)
[2017-09-10] MEDS: Polyethylene Glycol 3350 17 GM PACKET PO (09:56)
[2017-09-10] MEDS: Nystatin/Triamcin Cream Tube 1 APPLIC TOPICAL ×2 (09:57→22:47)
[2017-09-10] MEDS: guaiFENesin 600 MG Tablet PO ×2 (09:57→22:48)
[2017-09-10] MEDS: Lisinopril 20 MG Tablet PO (09:58)
[2017-09-10] MEDS: Sertraline 50 MG Tablet 150 MG PO (09:58)
[2017-09-10] MEDS: Pantoprazole Sodium 20 MG Tablet PO (09:58)
--- NOTE | 2017-09-10 11:06 | CASEMGMT ---
ROSY MEDEL Face to Face with patient for initial transition planning/care coordination assessment. RN CM introduced self and role at [facility]. Patient lying in bed, alert and oriented. Patient willing to participate in assessment and is able to answer all questions appropriately. Care providers, pharmacy, and demographics verified. See link attached. Patient wishes to discharge home. Patient states that he is agreeable to HHC if necessary for coarse of treatment. Patient states he has no further needs or concerns at this time. CM to follow for discharge planning needs that may arise. Disposition Plan: Patient to discharge home with family support and follow-up plans in place. Will monitor for need for HHC.
[2017-09-10] MEDS: Clindamycin HCl 150 MG Capsule 300 MG PO (11:14)
[2017-09-10 11:26] LABS: Bedside Glucose 137 mg/dL (70-110)
--- NOTE | 2017-09-10 11:52 | PCM.HP.ID ---
Problem List (1) Cellulitis of left leg Status: Acute Reason for Consult: leg infection Consulted by: Dr. Gandhi History of Present Illness: The patient is a 76 year old M who presented originally 09/05 after tripping in his barn and cutting his leg on a grain shovel. Shovel was old, had not been used in several years. It caused a large skin avulsion to L cota. Called EMS, taken to ED, wound sutured, given tetanus shot, sent home on keflex. Over next few days, increased redness, mild pain, some clear/yellow drainage. No fever or chills. No n/v/d with abx. Came to ED, given unasyn, admitted on vanc/zosyn, leg about the same today, pain is 5/10. Full ROS performed and neg except as noted above. - Medical History Past Medical History (Chronic Problems): Chronic Problems Iron deficiency anemia (Chronic) Pulmonary nodule (Chronic) HLD (hyperlipidemia) (Chronic) Diverticulosis (Chronic) Asthma (Chronic) Hypertension (Chronic) Avulsion of skin (Chronic) Avulsion of skin of hand (Chronic) Obesity (Chronic) Osteoarthritis (Chronic) Penetrating injury right leg (Chronic) Pain in right leg (Chronic) Right leg swelling (Chronic) History of prostate cancer (Chronic) Allergic rhinitis (Chronic) Rheumatoid arthritis (Chronic) Pleural plaque (Chronic) Macular degeneration (Chronic) GERD (gastroesophageal reflux disease) (Chronic) Prostate ca (Chronic) Allergies/Adverse Reactions: Allergies indomethacin [From Indocin] Allergy (Verified 09/09/17 22:56) Itching indomethacin sodium [From Indocin] Allergy (Verified 09/09/17 22:56) Itching oxycodone HCl [From Percocet] Allergy (Verified 09/09/17 22:56) Itching Home Medications: Ambulatory Orders Medication Instructions Recorded Albuterol Sulfate [Proventil Hfa] 2 puff IH BID 07/13/13 Azelastine HCl [Astelin] 2 spray NASAL BID 07/13/13 Fluticasone 0.05% [Flonase Nasal 2 spray NASAL BID 07/13/[address] [place]] Montelukast [Singulair] 10 mg PO QHS 07/13/13 Sertraline HCl [Zoloft] 150 mg PO DAILY 07/13/13 Tiotropium [place] [Spiriva 18 MCG] 1 puff INHALATION DAILY 07/13/13 Atorvastatin Calcium [Lipitor] 10 mg PO QHS 10/26/14 Lisinopril [Zestril] 20 mg PO DAILY 10/26/14 Ferrous Sulfate 325 mg PO BID 07/14/15 Multivitamin [Daily Multiple 1 each PO DAILY 07/14/15 Vitamin] Omeprazole [Prilosec] 20 mg PO DAILY 07/14/15 Polyethylene Glycol 3350 [Miralax] 17 gm PO DAILY PRN 07/14/15 Ipratropium [Atrovent] 0.5 mg INHALATION 4X/DAY PRN 09/03/16 Guaifenesin [Mucinex] 600 mg PO BID 01/12/17 Rivaroxaban [Xarelto] 20 mg PO DAILY 01/31/17 Fluticasone/Salmeterol [Advair Hfa 2 puff INHALATION BID 06/22/17 230-21 Mcg Inhaler] Nystatin/Triamcin Cream [Mycolog] 1 applic TOPICAL BID PRN 06/22/17 - Social History SMOKING STATUS:: Never smoker Vital Signs Temp Pulse Resp BP Pulse Ox 98.0 F 87 18 126/59 H 99 09/10/17 08:24 09/10/17 08:24 09/10/17 08:36 09/10/17 08:24 09/10/17 08:36 Oxygen Delivery Method Room Air Weight: 97.4 kg Body Mass Index (BMI) 36.3 Laboratory Tests Past 24 Hrs 09/10/17 09/10/17 09/10/17 03:00 10:10 10:10 Lactic Acid 0.8 S.aureus Protein A PCR Pending MRSA (PCR) Pending Pending - Other Studies Radiology: [] reviewed Other Studies: [] Route of nutrition/ use of supplements: [] Nutritional Intake: [] IV Site: [] León Catheter: [] - Physical Exam General: Alert, Oriented x3, Cooperative HEENT: Atraumatic, PERRLA, EOMI Neck: Supple, No Nodes Lungs: Clear to auscultation, Normal air movement Cardiovascular: Regular rate, Regular Rhythm, Murmur Abdomen: Bowel Sounds Present, Soft, Non Tender, Non-Distended Extremities: Edema - mild Skin: Incision - L cota with surrounding erythema. No drainage seen, no warmth, minimal tenderness IV Site: Peripheral, without redness Musculoskeletal: No Tenderness to Palpation of Joints or Extremities Neurological: Cranial nerves II-XII grossly intact - Assessment/Plan Antibiotics: [] Assessment/Plan: [] Active and Suspected Problems Cellulitis of left leg (Acute) L cota infected wound with surrounding cellulitis - cx pending. Low suspicion for underlying necrotizing fasciitis or osteo given no fever, normal wbc, and mild exam and symptoms. Will stop clinda. Cont vanc. Narrow zosyn to unasyn. Will follow, thank you.
[2017-09-10 12:35] LABS: M R Staph aureus DNA By PCR Negative (Negative); Probe Check PASS; Specimen Processing Control PASS; Staph aureus DNA By PCR NEGATIVE (Negative)
[2017-09-10 12:48] LABS: M R Staph aureus DNA By PCR Negative (Negative); Probe Check PASS; Specimen Processing Control PASS
[2017-09-10] MEDS: 0.9% Normal Saline 1,000 ML 100 ML IV (15:49)
[2017-09-10] MEDS: Rivaroxaban 20 MG Tablet PO (16:07)
[2017-09-10 16:16] LABS: Bedside Glucose 131 mg/dL (70-110)
[2017-09-10] MEDS: Acetaminophen 325 MG Tablet 650 MG PO (19:37)
[2017-09-10] MEDS: Atorvastatin Calcium 10 MG Tablet PO (22:48)
[2017-09-10] MEDS: Montelukast 10 MG Tablet PO (22:48)
[2017-09-10 23:05] LABS: Bedside Glucose 122 mg/dL (70-110)
[2017-09-11] VITALS (8 sets, daily range): BP systolic 133–157; BP diastolic 73–88; PULSE 92–113; RESP 16–20; TEMP 36.4–36.8; O2SAT 93–98
[2017-09-11] MEDS: 0.9% Normal Saline 1,000 ML 100 ML IV ×3 (01:44→23:05)
[2017-09-11] MEDS: Acetaminophen 325 MG Tablet 650 MG PO ×2 (05:21→19:25)
[2017-09-11] MEDS: Ipratropium/Albuterol Sulfate 3 ML AMPUL.NEB INHALATION ×3 (06:54→19:36)
[2017-09-11] MEDS: Budesonide Respules 0.5 MG/2 ML AMPUL.NEB. INHALATION ×2 (06:54→19:36)
[2017-09-11 07:15] LABS: Bedside Glucose 98 mg/dL (70-110)
[2017-09-11 07:21] LABS: Anion Gap 7 (5-15); BUN 19 mg/dL (7-18); BUN/Creat Ratio 18.1 RATIO (10-20); Calcium,Total 8.8 mg/dL (8.5-10.1); Chloride 110 mmol/L (98-107); Creatinine, Serum 1.05 mg/dL (0.70-1.30); EST Glomerular Filtration Rate 72 mL/min (>60); Est Glom Filt Rate - Afr Amer 88 mL/min (>60); Estimated Creatinine Clearance 48.55 ml/min; Glucose 114 mg/dL (74-106); Potassium 4.8 mmol/L (3.5-5.1); Sodium Level 141 mmol/L (136-145)
--- NOTE | 2017-09-11 08:02 | PCM.RX.CS ---
Consult Pharmacy has been consulted to manage selected antiobiotic: Vancomycin Type of Consult: Follow-up Suspected Infection: Skin/Soft tissue Prior Doses of Antibiotics Received/Current Regimen: Medications Vancomycin HCl (Vancomycin) 1,000 mg in 200 mls @ 200 mls/hr IV Q24H SWATHI Last Admin: 09/11/17 03:34 Dose: 200 mls/hr Labs: Sodium 141 mmol/L (136-145) 09/11/17 06:05 Potassium 4.8 mmol/L (3.5-5.1) 09/11/17 06:05 Chloride 110 mmol/L (98-107) H 09/11/17 06:05 Carbon Dioxide 24.0 mmol/L (21.0-32.0) 09/11/17 06:05 Anion Gap 7 (5-15) 09/11/17 06:05 BUN 19 mg/dL (7-18) H 09/11/17 06:05 Creatinine 1.05 mg/dL (0.70-1.30) 09/11/17 06:05 Est GFR (MDRD) Af Amer 88 mL/min (>60) 09/11/17 06:05 Est GFR (MDRD) Non-Af 72 mL/min (>60) 09/11/17 06:05 BUN/Creatinine Ratio 18.1 RATIO (10-20) 09/11/17 06:05 Glucose 114 mg/dL (74-106) H 09/11/17 06:05 Weight used for dosin kg Estimated Creatinine Clearance: 49 mL/min Goal Trough: 10-15 mcg/mL Pharmacy Plan for Drug Dosing: Renal function improved from yesterday. Recommend to increase to vancomycin IV 750mg q12h. Pharmacy Service will continue to monitor and adjust dosing as required. Follow-Up Labs: Trough Vancomycin - 09/13/17 @ 0600
--- NOTE | 2017-09-11 08:05 | PN_ITS ---
Patient Problems: Active and Suspected Problems Cellulitis of left leg (Acute) Subjective: Patient is a 76-year-old gentleman admitted with left lower extremity erythema swelling and some pain. Patient had originally been seen in the emergency department after he tripped in his barn and fell on old shovel. He had his wound sutured given a tetanus shot and discharged home on Keflex presented back to the hospital with worsening symptoms and assessment of cellulitis having failed outpatient treatment was made admitted to regular nursing floor Objective: GENERAL: cooperative HEENT: Clear conjunctiva, NECK; supple, normal thyroid, CHEST: Diminished to auscultation bilaterally, HEART: Regular S1 S2, no audible murmurs ABDOMEN: soft, non-tender, normoactive bowel sounds, RECTAL: deferred EXTREMITIES: Extensive laceration involving the left lower leg which has been sutured with areas of erythema and warmth with some blistering HAIRSPRING CUTTER: Awake, no lateralizing signs. SKIN: As Described above Vitals/I&O's: Vital Signs Temp Pulse Resp BP Pulse Ox 98 F 101 H 20 H 133/78 H 96 09/11/17 01:45 09/11/17 06:54 09/11/17 06:54 09/11/17 01:45 09/11/17 06:54 Oxygen Delivery Method Room Air Weight: 97.4 kg Body Mass Index (BMI) 36.3 Intake and Output for Last 24 Hours 09/09/17 09/10/17 09/11/17 23:59 23:59 23:59 Intake Total 1750 / 1750 2820 / 2820 Output Total 425 / 425 Balance 1325 / 1325 2820 / 2820 Laboratory Results 09/10/17 10:10: MRSA (PCR) Negative 09/10/17 10:10: S.aureus Protein A PCR NEGATIVE, MRSA (PCR) Negative 09/10/17 11:17: POC Glucose 137 H 09/10/17 16:05: POC Glucose 131 H 09/10/17 22:56: POC Glucose 122 H 09/11/17 06:05: Sodium 141, Potassium 4.8, Chloride 110 H, Carbon Dioxide 24.0, Anion Gap 7, BUN 19 H, Creatinine 1.05, Estim Creat Clear Calc 48.55, Est GFR ( MDRD) Af Amer 88, Est GFR (MDRD) Non-Af 72, BUN/Creatinine Ratio 18.1, Glucose 114 H, Calcium 8.8 09/11/17 07:03: POC Glucose 98 Current Medications Acetaminophen (Tylenol) 650 mg PO Q6H PRN PRN PRN Reason: Mild Pain (scale 0-3)/T>100.7 Last Admin: 09/11/17 05:21 Dose: 650 mg Al Hydroxide/Mg Hydroxide (Mylanta Ii) 30 ml PO Q6H PRN PRN PRN Reason: Gastric Burning Albuterol/Ipratropium (Duoneb) 3 ml INHALATION Q6HWA.RT [facility] Last Admin: 09/11/17 06:54 Dose: 3 ml Atorvastatin Calcium (Lipitor) 10 mg PO QHS [facility] Last Admin: 09/10/17 22:48 Dose: 10 mg Azelastine HCl (Astelin) 2 spray NASAL BID [facility] Last Admin: 09/10/17 22:47 Dose: 2 sprays Bisacodyl (Dulcolax) 10 mg RECTAL DAILY PRN PRN PRN Reason: Constipation Budesonide (Pulmicort Aerosol) 0.5 mg INHALATION Q12H.RT [facility] Last Admin: 09/11/17 06:54 Dose: 0.5 mg Dextrose (D50w Syringe) 0 gm IV X1 PRN; Protocol PRN Reason: Hypoglycemia Docusate Sodium (Colace) 200 mg PO BID PRN PRN PRN Reason: Constipation Ferrous Sulfate (Ferrous Sulfate) 325 mg PO BIDCM [facility] Last Admin: 09/10/17 16:07 Dose: 325 mg Fluticasone Propionate (Flonase Nasal [place]) 2 spray NASAL BID [facility] Last Admin: 09/10/17 22:48 Dose: 2 sprays Glucagon () 1 mg IM .X1 PRN PRN Reason: Hypoglycemia Guaifenesin (Mucinex) 600 mg PO BID [facility] Last Admin: 09/10/17 22:48 Dose: 600 mg Sodium Chloride () 1,000 mls @ 100 mls/hr IV .Q10H [facility] Last Admin: 09/11/17 01:44 Dose: 100 mls/hr Ampicillin Sodium/Sulbactam (Sodium 3 gm/ Sodium Chloride) 112 mls @ 150 mls/ hr IV Q8 [facility] Last Admin: 09/11/17 05:23 Dose: 150 mls/hr Vancomycin HCl 750 mg/ Sodium (Chloride) 265 mls @ 265 mls/hr IV Q12H [facility] Ipratropium [place] (Atrovent) 0.5 mg INHALATION 4X/DAY PRN PRN PRN Reason: SOB &/OR WHEEZING Lactobacillus Acidophilus (Acidophilus) 2 tablet PO TID [facility] Last Admin: 09/11/17 05:22 Dose: 2 tablet Leflunomide (Leflunomide) 10 mg PO DAILY [facility] Last Admin: 09/10/17 09:55 Dose: 10 mg Lisinopril (Zestril) 20 mg PO DAILY [facility] Last Admin: 09/10/17 09:58 Dose: 20 mg Montelukast Sodium (Singulair) 10 mg PO QHS [facility] Last Admin: 09/10/17 22:48 Dose: 10 mg Morphine Sulfate () 1 - 2 mg IV Q4H PRN PRN PRN Reason: SEVERE PAIN (6-10/10) Multivitamins (Multivitamin) 1 tablet PO DAILYCM [facility] Last Admin: 09/10/17 08:22 Dose: 1 tablet Nutritional Formula (Lactose Free) (Ensure Enlive) 120 ml PO 4X/DAY [facility] Last Admin: 09/10/17 22:49 Dose: 120 ml Nystatin/Triamcinolone Acetonide (Mycolog) 1 applic TOPICAL BID [facility] PRN Reason: Protocol Last Admin: 09/10/17 22:47 Dose: 1 applicatio Ondansetron HCl (Zofran) 4 mg IV Q8H PRN PRN PRN Reason: Nausea Pantoprazole Sodium (Protonix) 20 mg PO DAILY [facility] Last Admin: 09/10/17 09:58 Dose: 20 mg Polyethylene Glycol (Miralax) 17 gm PO DAILY [facility] Last Admin: 09/10/17 09:56 Dose: 17 gm Rivaroxaban (Xarelto) 20 mg PO DINNER [facility] Last Admin: 09/10/17 16:07 Dose: 20 mg Sertraline HCl (Zoloft) 150 mg PO DAILY [facility] Last Admin: 09/10/17 09:58 Dose: 150 mg Sodium Chloride () 5 - 30 ml IV UD PRN PRN Reason: SALINE FLUSH Last Admin: 09/10/17 03:49 Dose: 10 ml Zolpidem Tartrate (Ambien (Generic)) 5 mg PO QHS PRN PRN PRN Reason: INSOMNIA Medical Necessity - Tobacco Use Smoking Status: Never smoker Assessment/Plan Active and Suspected Problems Cellulitis of left leg (Acute) Patient is a 76-year-old gentleman admitted with left lower extremity erythema swelling and some pain. Patient had originally been seen in the emergency department after he tripped in his barn and fell on old shovel. He had his wound sutured given a tetanus shot and discharged home on Keflex presented back to the hospital with worsening symptoms and assessment of cellulitis having failed outpatient treatment was made admitted to regular nursing floor 1. Left lower extremity cellulitis involving almost the entire leg from the knee to the ankle. Patient did fail outpatient treatment with Keflex started on Unasyn with consultation placed infectious disease. Patient was seen by Dr. Lucio his notes and recommendations reviewed 2. Recent history of pulmonary embolism patient is on systemic anticoagulation with Xarelto 3. Hypertension-blood pressure controlled, home medications continued with dose adjustment as needed 4. Dyslipidemia-patient is on statin therapy, continued at home dose 5. Mild intermittent asthma patient is on bronchodilator treatment as well as inhaled corticosteroid with budesonide did continue home regimen 6. Rheumatoid arthritis patient is on leflunomide 7. Anemia secondary to anemia of chronic disorder 8. Generalized osteoarthritis 9. GERD 10. History of prostate CA 11. DVT prophylaxis on Xarelto 12. Obesity with BMI of 36.3 weight loss advised Code Visit Inpatient E&M: 94248 Subs Hosp L3
[2017-09-11] MEDS: Azelastine HCl NASAL.SRY 2 SPRAY NASAL ×2 (08:15→23:06)
[2017-09-11] MEDS: Ferrous Sulfate 325 MG Tablet PO ×2 (08:15→17:08)
[2017-09-11] MEDS: Multivitamins,Therapeutic Tablet 1 TABLET PO (08:15)
[2017-09-11] MEDS: Fluticasone 0.05% 1 SPRAY NASAL.SRY 2 SPRAY NASAL ×2 (08:16→23:06)
[2017-09-11] MEDS: guaiFENesin 600 MG Tablet PO ×2 (08:17→23:07)
[2017-09-11] MEDS: Pantoprazole Sodium 20 MG Tablet PO (08:17)
[2017-09-11] MEDS: Lisinopril 20 MG Tablet PO (08:18)
[2017-09-11] MEDS: Sertraline 50 MG Tablet 150 MG PO (08:19)
[2017-09-11] MEDS: Leflunomide 10 MG TABLET PO (08:19)
--- NOTE | 2017-09-11 09:15 | NURSING ---
wound photo: left lower leg
--- NOTE | 2017-09-11 10:47 | PCM.PN.ID ---
Patient Problems: Active and Suspected Problems Cellulitis of left leg (Acute) Subjective: Feeling ok today, no fever, not much pain in leg. No n/v/d with iv abx. - Physical Exam General: Alert, Cooperative Lungs: Clear to auscultation, Normal air movement Cardiovascular: Regular rate, Regular Rhythm Abdomen: Soft, Non Tender, Non-Distended Skin: Incision - surrounding redness Vital Signs Temp Pulse Resp BP Pulse Ox 98.2 F 113 H 16 141/79 H 93 09/11/17 08:27 09/11/17 08:27 09/11/17 08:27 09/11/17 08:27 09/11/17 08:27 Oxygen Delivery Method Room Air Weight: 97.4 kg Body Mass Index (BMI) 36.3 Intake and Output for Last 24 Hours 09/09/17 09/10/17 09/11/17 23:59 23:59 23:59 Intake Total 1750 / 1750 2820 / 2820 Output Total 425 / 425 Balance 1325 / 1325 2820 / 2820 Laboratory Tests Past 24 Hrs 09/10/17 09/10/17 09/11/17 10:10 10:10 06:05 Sodium 141 Potassium 4.8 Chloride 110 H Carbon Dioxide 24.0 Anion Gap 7 BUN 19 H Creatinine 1.05 Estim Creat Clear Calc 48.55 Est GFR (MDRD) Af Amer 88 Est GFR (MDRD) Non-Af 72 BUN/Creatinine Ratio 18.1 Glucose 114 H Calcium 8.8 S.aureus Protein A PCR NEGATIVE MRSA (PCR) Negative Negative POC Glucose 09/11/17 09/10/17 09/10/17 07:03 22:56 16:05 POC Glucose 98 122 H 131 H 09/10/17 11:17 POC Glucose 137 H Medical Necessity - Tobacco Use Smoking Status: Never smoker Route of nutrition/ use of supplements: [] Nutritional Intake: [] IV Site: [] León Catheter: [] - Assessment/Plan Antibiotics: [] Assessment/Plan: [] Active and Suspected Problems Cellulitis of left leg (Acute) L cota infected wound with surrounding cellulitis - cx neg so far. Low suspicion for underlying necrotizing fasciitis or osteo given no fever, normal wbc, and mild exam and symptoms. Cont vanc and unasyn. Reviewed photo today. He probably would benefit at this point from surgical eval to see if wound needs to be re-opened/debrided. Will follow
[2017-09-11 11:31] LABS: Bedside Glucose 117 mg/dL (70-110)
[2017-09-11] MEDS: Morphine 2 MG/ML Syringe IV ×2 (16:11→23:08)
[2017-09-11 16:25] LABS: Bedside Glucose 142 mg/dL (70-110)
--- NOTE | 2017-09-11 18:55 | PCM.CONS.GEN ---
Problem List (1) Abscess of left leg Status: Acute Reason for Consult Date of Consultation: 09/11/17 History of Present Illness: The patient is a 76 year old M who had a left lower extremity injury several days ago. This was sutured up in the emergency room he was sent home. He returned to the emergency room when this started draining purulent material. He was admitted and ID has been giving him IV antibiotics. He reports no fevers or chills. He says the sensation in his leg is good and there is good movement. Past Medical History Past Medical History (Chronic Problems): Chronic Problems Iron deficiency anemia (Chronic) Pulmonary nodule (Chronic) HLD (hyperlipidemia) (Chronic) Diverticulosis (Chronic) Asthma (Chronic) Hypertension (Chronic) Avulsion of skin (Chronic) Avulsion of skin of hand (Chronic) Obesity (Chronic) Osteoarthritis (Chronic) Penetrating injury right leg (Chronic) Pain in right leg (Chronic) Right leg swelling (Chronic) History of prostate cancer (Chronic) Allergic rhinitis (Chronic) Rheumatoid arthritis (Chronic) Pleural plaque (Chronic) Macular degeneration (Chronic) GERD (gastroesophageal reflux disease) (Chronic) Prostate ca (Chronic) Allergies indomethacin [From Indocin] Allergy (Verified 09/09/17 22:56) Itching indomethacin sodium [From Indocin] Allergy (Verified 09/09/17 22:56) Itching oxycodone HCl [From Percocet] Allergy (Verified 09/09/17 22:56) Itching Home Medications: Ambulatory Orders Medication Instructions Recorded Albuterol Sulfate [Proventil Hfa] 2 puff IH BID 07/13/13 Azelastine HCl [Astelin] 2 spray NASAL BID 07/13/13 Fluticasone 0.05% [Flonase Nasal 2 spray NASAL BID 07/13/13 [place]] Montelukast [Singulair] 10 mg PO QHS 07/13/13 Sertraline HCl [Zoloft] 150 mg PO DAILY 07/13/13 Tiotropium [place] [Spiriva 18 MCG] 1 puff INHALATION DAILY 07/13/13 Atorvastatin Calcium [Lipitor] 10 mg PO QHS 10/26/14 Lisinopril [Zestril] 20 mg PO DAILY 10/26/14 Ferrous Sulfate 325 mg PO BID 07/14/15 Multivitamin [Daily Multiple 1 each PO DAILY 07/14/15 Vitamin] Omeprazole [Prilosec] 20 mg PO DAILY 07/14/15 Polyethylene Glycol 3350 [Miralax] 17 gm PO DAILY PRN 07/14/15 Ipratropium [Atrovent] 0.5 mg INHALATION 4X/DAY PRN 09/03/16 Guaifenesin [Mucinex] 600 mg PO BID 01/12/17 Rivaroxaban [Xarelto] 20 mg PO DAILY 01/31/17 Fluticasone/Salmeterol [Advair Hfa 2 puff INHALATION BID 06/22/17 230-21 Mcg Inhaler] Nystatin/Triamcin Cream [Mycolog] 1 applic TOPICAL BID PRN 06/22/17 Surgical History: - - Umbilical hernia repair, appendectomy, bilateral carpal tunnel surgery, Prostatectomy, Cataract surgery, L lens implant, L knee surgery followed by LTKR, L shoulder surgery, left total hip replacement. Smoking Status: Never smoker - *Family History Sibling History Items: Diabetes, Renal Disease, - - Patient's father at the age of 76 with history of colon cancer myocardial infarction. Patient's mother at age of 86 with a history of breast cancer. Maternal History Items: Cancer Paternal History Items: Cancer Review of Systems Constitutional: Denies: Anorexia, Chills, Fever HEENT: Denies: Difficulty Swallowing Cardiovascular: Denies: Chest Pain Respiratory: Denies: Cough, Shortness of Breath Gastrointestinal: Denies: Abdominal Pain Musculoskeletal: Reports: Leg Pain Skin: Denies: Dryness, Jaundice Psychiatric: Denies: Anxiety, Depression Hematologic/ Lymphatic: Denies: Anemia Patient Problems: Active and Suspected Problems Cellulitis of left leg (Acute) Abscess of left leg (Acute) - Physical Exam General: Alert, Oriented x3, Cooperative Oral: Moist Mucosa Neck: No JVD Lungs: Normal air movement Cardiovascular: Regular rate, Regular Rhythm Abdomen: Soft, Non Tender, Non-Distended Extremities: - - Left lower extremity has an incision which is sutured. There are several areas of necrosis and there is purulent drainage. Toes are warm with good movement. Skin: No rashes Musculoskeletal: No Muscle Wasting Neurological: Cranial nerves II-XII grossly intact Psych/Mental Status: Normal Affect, Appropriate Vital Signs Temp Pulse Resp BP Pulse Ox 97.5 F L 109 H 16 142/73 H 97 09/11/17 14:05 09/11/17 14:05 09/11/17 14:05 09/11/17 14:05 09/11/17 14:05 Oxygen Delivery Method Room Air Weight: 214 lb 11.684 oz Body Mass Index (BMI) 36.3 Intake and Output for Last 24 Hours 09/09/17 09/10/17 09/11/17 23:59 23:59 23:59 Intake Total 1750 / 1750 4770 / 4770 Output Total 425 / 425 Balance 1325 / 1325 4770 / 4770 Microbiology Past 72 Hours 09/10/17 10:10 Gram Stain - Final Wound - Leg, Left Wound Culture - Preliminary 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 There is no radiopaque foreign body. There is no acute displaced fracture or dislocation. Other nonacute findings as outlined above. Electronically Signed: Cindi Bernal MD at 6:06 EDT , Service support , Assessment/Plan Active and Suspected Problems Cellulitis of left leg (Acute) Abscess of left leg (Acute) 76-year-old male with left lower extremity infection 1. The left lower extremity has a clear area of necrosis and infection in the prior wound. This needs surgical debridement. Since he has eaten today I performed a bedside debridement to open the wound and I will do a formal debridement tomorrow in the operating room. 2. I discussed the risks of bleeding and infection with the patient especially since he is still on Xarelto. He agreed to both debridements. 3. Patient may need tonight and be n.p.o. after midnight. Please hold Xarelto tonight and tomorrow morning. Homero Chin MD Pager: [facility] [address] [place] [address], [address] [place] [address] Office: Procedure documentation: The left lower extremity was unwrapped and several of the sutures were removed with scissors. Next the lower area of necrosis was sharply incised and the area of infection was packed with wet-to-dry dressing. There appeared to be infection running posteriorly in the skin flap. The muscle appeared viable and the fascia appeared uninfected. The lower extremity was then wrapped with Kerlex and Tushar bandage. The patient tolerated the procedure well.
--- NOTE | 2017-09-11 19:00 | CON.PCM_ITS ---
Problem List (1) Abscess of left leg Status: Acute Reason for Consult Date of Consultation: 09/11/17 History of Present Illness: The patient is a 76 year old M who had a left lower extremity injury several days ago. This was sutured up in the emergency room he was sent home. He returned to the emergency room when this started draining purulent material. He was admitted and ID has been giving him IV antibiotics. He reports no fevers or chills. He says the sensation in his leg is good and there is good movement. Past Medical History Past Medical History (Chronic Problems): Chronic Problems Iron deficiency anemia (Chronic) Pulmonary nodule (Chronic) HLD (hyperlipidemia) (Chronic) Diverticulosis (Chronic) Asthma (Chronic) Hypertension (Chronic) Avulsion of skin (Chronic) Avulsion of skin of hand (Chronic) Obesity (Chronic) Osteoarthritis (Chronic) Penetrating injury right leg (Chronic) Pain in right leg (Chronic) Right leg swelling (Chronic) History of prostate cancer (Chronic) Allergic rhinitis (Chronic) Rheumatoid arthritis (Chronic) Pleural plaque (Chronic) Macular degeneration (Chronic) GERD (gastroesophageal reflux disease) (Chronic) Prostate ca (Chronic) Allergies indomethacin [From Indocin] Allergy (Verified 09/09/17 22:56) Itching indomethacin sodium [From Indocin] Allergy (Verified 09/09/17 22:56) Itching oxycodone HCl [From Percocet] Allergy (Verified 09/09/17 22:56) Itching Home Medications: Ambulatory Orders Medication Instructions Recorded Albuterol Sulfate [Proventil Hfa] 2 puff IH BID 07/13/13 Azelastine HCl [Astelin] 2 spray NASAL BID 07/13/13 Fluticasone 0.05% [Flonase Nasal 2 spray NASAL BID 07/13/13 [place]] Montelukast [Singulair] 10 mg PO QHS 07/13/13 Sertraline HCl [Zoloft] 150 mg PO DAILY 07/13/13 Tiotropium [place] [Spiriva 18 MCG] 1 puff INHALATION DAILY 07/13/13 Atorvastatin Calcium [Lipitor] 10 mg PO QHS 10/26/14 Lisinopril [Zestril] 20 mg PO DAILY 10/26/14 Ferrous Sulfate 325 mg PO BID 07/14/15 Multivitamin [Daily Multiple 1 each PO DAILY 07/14/15 Vitamin] Omeprazole [Prilosec] 20 mg PO DAILY 07/14/15 Polyethylene Glycol 3350 [Miralax] 17 gm PO DAILY PRN 07/14/15 Ipratropium [Atrovent] 0.5 mg INHALATION 4X/DAY PRN 09/03/16 Guaifenesin [Mucinex] 600 mg PO BID 01/12/17 Rivaroxaban [Xarelto] 20 mg PO DAILY 01/31/17 Fluticasone/Salmeterol [Advair Hfa 2 puff INHALATION BID 06/22/17 230-21 Mcg Inhaler] Nystatin/Triamcin Cream [Mycolog] 1 applic TOPICAL BID PRN 06/22/17 Surgical History: - - Umbilical hernia repair, appendectomy, bilateral carpal tunnel surgery, Prostatectomy, Cataract surgery, L lens implant, L knee surgery followed by LTKR, L shoulder surgery, left total hip replacement. Smoking Status: Never smoker - *Family History Sibling History Items: Diabetes, Renal Disease, - - Patient's father at the age of 76 with history of colon cancer myocardial infarction. Patient's mother at age of 86 with a history of breast cancer. Maternal History Items: Cancer Paternal History Items: Cancer Review of Systems Constitutional: Denies: Anorexia, Chills, Fever HEENT: Denies: Difficulty Swallowing Cardiovascular: Denies: Chest Pain Respiratory: Denies: Cough, Shortness of Breath Gastrointestinal: Denies: Abdominal Pain Musculoskeletal: Reports: Leg Pain Skin: Denies: Dryness, Jaundice Psychiatric: Denies: Anxiety, Depression Hematologic/ Lymphatic: Denies: Anemia Patient Problems: Active and Suspected Problems Cellulitis of left leg (Acute) Abscess of left leg (Acute) - Physical Exam General: Alert, Oriented x3, Cooperative Oral: Moist Mucosa Neck: No JVD Lungs: Normal air movement Cardiovascular: Regular rate, Regular Rhythm Abdomen: Soft, Non Tender, Non-Distended Extremities: - - Left lower extremity has an incision which is sutured. There are several areas of necrosis and there is purulent drainage. Toes are warm with good movement. Skin: No rashes Musculoskeletal: No Muscle Wasting Neurological: Cranial nerves II-XII grossly intact Psych/Mental Status: Normal Affect, Appropriate Vital Signs Temp Pulse Resp BP Pulse Ox 97.5 F L 109 H 16 142/73 H 97 09/11/17 14:05 09/11/17 14:05 09/11/17 14:05 09/11/17 14:05 09/11/17 14:05 Oxygen Delivery Method Room Air Weight: 214 lb 11.684 oz Body Mass Index (BMI) 36.3 Intake and Output for Last 24 Hours 09/09/17 09/10/17 09/11/17 23:59 23:59 23:59 Intake Total 1750 / 1750 4770 / 4770 Output Total 425 / 425 Balance 1325 / 1325 4770 / 4770 Microbiology Past 72 Hours 09/10/17 10:10 Gram Stain - Final Wound - Leg, Left Wound Culture - Preliminary 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 There is no radiopaque foreign body. There is no acute displaced fracture or dislocation. Other nonacute findings as outlined above. Electronically Signed: Cindi Bernal MD at 6:06 EDT , Service support , Assessment/Plan Active and Suspected Problems Cellulitis of left leg (Acute) Abscess of left leg (Acute) 76-year-old male with left lower extremity infection 1. The left lower extremity has a clear area of necrosis and infection in the prior wound. This needs surgical debridement. Since he has eaten today I performed a bedside debridement to open the wound and I will do a formal debridement tomorrow in the operating room. 2. I discussed the risks of bleeding and infection with the patient especially since he is still on Xarelto. He agreed to both debridements. 3. Patient may need tonight and be n.p.o. after midnight. Please hold Xarelto tonight and tomorrow morning. Homero Chin MD Pager: [facility] [address] [place] [address], [address] [place] [address] Office: Procedure documentation: The left lower extremity was unwrapped and several of the sutures were removed with scissors. Next the lower area of necrosis was sharply incised and the area of infection was packed with wet-to-dry dressing. There appeared to be infection running posteriorly in the skin flap. The muscle appeared viable and the fascia appeared uninfected. The lower extremity was then wrapped with Kerlex and Tushar bandage. The patient tolerated the procedure well.
[2017-09-11] MEDS: Atorvastatin Calcium 10 MG Tablet PO (23:07)
[2017-09-11] MEDS: Montelukast 10 MG Tablet PO (23:08)
[2017-09-11 23:30] LABS: Bedside Glucose 119 mg/dL (70-110)
[2017-09-12] VITALS (13 sets, daily range): BP systolic 101–154; BP diastolic 55–103; PULSE 88–106; RESP 16–20; TEMP 36.6–37.3; O2SAT 88–97; BMI 36.3
[2017-09-12] MEDS: Acetaminophen 325 MG Tablet 650 MG PO ×3 (02:19→21:49)
--- NOTE | 2017-09-12 05:00 | EKG12_ITS ---
Test Reason : AM EKG Blood Pressure : / mmHG Vent. Rate : 093 BPM Atrial Rate : 093 BPM P-R Int : 124 ms QRS Dur : 088 ms QT Int : 342 ms P-R-T Axes : 058 061 055 degrees QTc Int : 425 ms Normal sinus rhythm Normal ECG When compared with ECG of 05-SEP-2017 15:42, No significant change was found Confirmed by OPAL MOULTON, MARI ([id number]), editor producer YARON WOODS ([id number] on 09/22/2017 2:40:35 PM Referred By: FARRAH Confirmed By:MARI JOSEPH MD
[2017-09-12 06:12] LABS: Absolute Lymphocyte Count 0.74 X10^3/ul (0.83-4.51); Absolute Neutrophil Count 4.4 X10^3/uL (2.0-7.7); Basophil# 0.01 X10^3/uL; Basophil% 0.2 % (0-1); Eosinophil# 0.18 X10^3/uL; Hemoglobin 9.4 g/dl (13.0-16.5); Lymphocyte # 0.74 X10^3/ul (4.0); Lymphocyte % 12.1 % (19-41); Mean Corp Hgb Conc 31.3 g/gl (32-36); Mean Corpuscular Hgb 27.8 pg (27.0-32.0); Mean Corpuscular Volume 88.8 fL (80-94); Mean Platelet Vol. 9.5 fl (6.2-12.0); Monocyte% 11.5 % (0-10); Neutrophil # 4.36 X10^3/uL (2.7-7.7); Neutrophil % 71.4 % (47-70); Platelet Count 219 K/mm3 (150-450); RBC Distribution Width CV 15.2 % (11.6-14.6); RBC Distribution Width SD 49.6 fl (35.1-43.9); Red Blood Count 3.38 M/mm3 (4.6-6.2); White Blood Count 6.1 K/mm3 (4.4-11.0)
[2017-09-12 06:16] LABS: International Normalized Ratio 1.1; Prothrombin Time (Protime)PT. 14.4 SECONDS (11.7-14.9)
[2017-09-12 06:17] LABS: Partial Thromboplast Time 41.1 Seconds (24.1-36.2)
[2017-09-12 06:19] LABS: POSITIVE COUNT NO; POSITIVE DIFFERENTIAL NO; POSITIVE MORPHOLOGY NO
[2017-09-12 06:41] LABS: Anion Gap 8 (5-15); BUN 15 mg/dL (7-18); BUN/Creat Ratio 15.4 RATIO (10-20); Calcium,Total 8.8 mg/dL (8.5-10.1); Chloride 109 mmol/L (98-107); Creatinine, Serum 0.98 mg/dL (0.70-1.30); EST Glomerular Filtration Rate 79 mL/min (>60); Est Glom Filt Rate - Afr Amer 95 mL/min (>60); Estimated Creatinine Clearance 52.02 ml/min; Glucose 99 mg/dL (74-106); Potassium 4.8 mmol/L (3.5-5.1); Sodium Level 140 mmol/L (136-145)
[2017-09-12 06:45] LABS: Bedside Glucose 96 mg/dL (70-110)
[2017-09-12] MEDS: Budesonide Respules 0.5 MG/2 ML AMPUL.NEB. INHALATION ×2 (07:18→18:54)
[2017-09-12] MEDS: Ipratropium/Albuterol Sulfate 3 ML AMPUL.NEB INHALATION ×3 (07:18→18:53)
[2017-09-12 07:19] LABS: Hemoglobin A1c 7.7 % (4.2-6.3)
--- NOTE | 2017-09-12 08:12 | NURSING ---
Pt is scheduled for surgical debridement of the left lower leg wound today per Dr Chin. will continue to follow post op.
[2017-09-12] MEDS: Morphine 2 MG/ML Syringe IV (08:29)
--- NOTE | 2017-09-12 09:37 | PN_ITS ---
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 SKIN: As Described above Vitals/I&O's: Vital Signs Temp Pulse Resp BP Pulse Ox 98.3 F 100 18 151/97 H 96 09/12/17 02:19 09/12/17 07:18 09/12/17 07:18 09/12/17 02:19 09/12/17 02:19 Oxygen Delivery Method Room Air Weight: 97.4 kg Body Mass Index (BMI) 36.3 Intake and Output for Last 24 Hours 09/10/17 09/11/17 09/12/17 23:59 23:59 23:59 Intake Total 1750 / 1750 4770 / 4770 2022.5 / 2022.5 Output Total 425 / 425 Balance 1325 / 1325 4770 / 4770 2022.5 / 2021.5 Microbiology Past 72 Hours 09/10/17 10:10 Wound - Leg, Left Gram Stain - Final 09/10/17 10:10 Wound - Leg, Left Wound Culture - Final Citrobacter freundii Bacillus sp., not anthracis 09/10/17 10:10 Wound - Leg, Left Anaerobic Culture - Preliminary Checking for anaerobes, further studies to follow. Laboratory Results 09/11/17 11:28: POC Glucose 117 H 09/11/17 16:14: POC Glucose 142 H 09/11/17 18:29: Blood Type A POSITIVE, Antibody Screen NEGATIVE 09/11/17 23:23: POC Glucose 119 H 09/12/17 05:30: WBC 6.1, RBC 3.38 L, Hgb 9.4 L, Hct 30.0 L, MCV 88.8, MCH 27.8, MCHC 31.3 L, RDW 15.2 H, RDW Differential 49.6 H, Plt Count 219, MPV 9.5, Immature Gran % (Auto) 1.800 H, Neut % (Auto) 71.4 H, Lymph % (Auto) 12.1 L, [place] % (Auto) 11.5 H, Eos % (Auto) 3.0, Baso % (Auto) 0.2, Absolute Neuts (auto ) 4.4, Absolute Lymphs (auto) 0.74 L, Total Counted Not Reportable 09/12/17 05:30: Sodium 140, Potassium 4.8, Chloride 109 H, Carbon Dioxide 23.0, Anion Gap 8, BUN 15, Creatinine 0.98, Estim Creat Clear Calc 52.02, Est GFR ( MDRD) Af Amer 95, Est GFR (MDRD) Non-Af 79, BUN/Creatinine Ratio 15.4, Glucose 99, Calcium 8.8 09/12/17 05:30: PT 14.4, INR 1.1, APTT 41.1 H 09/12/17 05:30: Hemoglobin A1c 7.7 H 09/12/17 06:34: POC Glucose 96 Current Medications Acetaminophen (Tylenol) 650 mg PO Q6H PRN PRN PRN Reason: Mild Pain (scale 0-3)/T>100.7 Last Admin: 09/12/17 02:19 Dose: 650 mg Al Hydroxide/Mg Hydroxide (Mylanta Ii) 30 ml PO Q6H PRN PRN PRN Reason: Gastric Burning Albuterol/Ipratropium (Duoneb) 3 ml [facility]HALATION Q6HWA.[facility] Last Admin: 09/12/17 07:18 Dose: 3 ml Atorvastatin Calcium (Lipitor) 10 mg PO QHS [facility] Last Admin: 09/11/17 23:07 Dose: 10 mg Azelastine HCl (Astelin) 2 spray NASAL BID [facility] Last Admin: 09/11/17 23:06 Dose: 2 sprays Bisacodyl (Dulcolax) 10 mg RECTAL DAILY PRN PRN PRN Reason: Constipation Budesonide (Pulmicort Aerosol) 0.5 mg INHALATION Q12H.RT [facility] Last Admin: 09/12/17 07:18 Dose: 0.5 mg Dextrose (D50w Syringe) 0 gm IV X1 PRN; Protocol PRN Reason: Hypoglycemia Docusate Sodium (Colace) 200 mg PO BID PRN PRN PRN Reason: Constipation Ferrous Sulfate (Ferrous Sulfate) 325 mg PO BIDCM [facility] Last Admin: 09/11/17 17:08 Dose: 325 mg Fluticasone Propionate (Flonase Nasal [place]) 2 spray NASAL BID [facility] Last Admin: 09/11/17 23:06 Dose: 2 sprays Glucagon () 1 mg IM .X1 PRN PRN Reason: Hypoglycemia Guaifenesin (Mucinex) 600 mg PO BID [facility] Last Admin: 09/11/17 23:07 Dose: 600 mg Sodium Chloride () 1,000 mls @ 100 mls/hr IV .Q10H [facility] Last Admin: 09/11/17 23:05 Dose: 100 mls/hr Ampicillin Sodium/Sulbactam (Sodium 3 gm/ Sodium Chloride) 112 mls @ 150 mls/ hr IV Q8 [facility] Last Admin: 09/12/17 06:28 Dose: 150 mls/hr Vancomycin HCl 750 mg/ Sodium (Chloride) 265 mls @ 265 mls/hr IV Q12H [facility] Last Admin: 09/12/17 07:33 Dose: 265 mls/hr Ipratropium [place] (Atrovent) 0.5 mg INHALATION 4X/DAY PRN PRN PRN Reason: SOB &/OR WHEEZING Lactobacillus Acidophilus (Acidophilus) 2 tablet PO TID [facility] Last Admin: 09/12/17 06:25 Dose: Not Given Leflunomide (Leflunomide) 10 mg PO DAILY [facility] Last Admin: 09/11/17 08:19 Dose: 10 mg Lisinopril (Zestril) 20 mg PO DAILY [facility] Last Admin: 09/11/17 08:18 Dose: 20 mg Montelukast Sodium (Singulair) 10 mg PO QHS [facility] Last Admin: 09/11/17 23:08 Dose: 10 mg Morphine Sulfate () 1 - 2 mg IV Q4H PRN PRN PRN Reason: SEVERE PAIN (6-10/10) Last Admin: 09/12/17 08:29 Dose: 2 mg Multivitamins ([facility]) [facility] Last Admin: 09/11/17 08:15 Dose: 1 tablet Nutritional Formula (Lactose Free) (Ensure Enlive) 120 ml PO 4X/DAY [facility] Last Admin: 09/11/17 23:06 Dose: 120 ml Nystatin/Triamcinolone Acetonide (Mycolog) 1 applic TOPICAL BID [facility] PRN Reason: Protocol Last Admin: 09/11/17 23:07 Dose: Not Given Ondansetron HCl (Zofran) 4 mg IV Q8H PRN PRN PRN Reason: Nausea Pantoprazole Sodium (Protonix) 20 mg PO DAILY [facility] Last Admin: 09/11/17 08:17 Dose: 20 mg Polyethylene Glycol (Miralax) 17 gm PO DAILY [facility] Last Admin: 09/11/17 08:16 Dose: Not Given Rivaroxaban (Xarelto) 20 mg PO DINNER [facility] Last Admin: 09/11/17 16:34 Dose: Not Given Sertraline HCl (Zoloft) 150 mg PO DAILY [facility] Last Admin: 09/11/17 08:19 Dose: 150 mg Sodium Chloride () 5 - 30 ml IV UD PRN PRN Reason: SALINE FLUSH Last Admin: 09/10/17 03:49 Dose: 10 ml Zolpidem Tartrate (Ambien (Generic)) 5 mg PO QHS PRN PRN PRN Reason: INSOMNIA Medical Necessity - Tobacco Use Smoking Status: Never smoker Assessment/Plan Active and Suspected Problems Cellulitis of left leg (Acute) Abscess of left leg (Acute) Patient is a 76-year-old gentleman admitted with left lower extremity erythema swelling and some pain. Patient had originally been seen in the emergency department after he tripped in his barn and fell on old shovel. He had his wound sutured given a tetanus shot and discharged home on Keflex presented back to the hospital with worsening symptoms and assessment of cellulitis having failed outpatient treatment was made admitted to regular nursing floor 1. Left lower extremity cellulitis involving almost the entire leg from the knee to the ankle. Patient did fail outpatient treatment with Keflex started on Unasyn with consultation placed infectious disease. Patient was seen by Dr. Lucio his notes and recommendations reviewed consultation was placed to Dr. Chin with general surgery after discussing with Dr. Lucio. He did perform bedside debridement on 09/11/2017 and patient was taken to the OR for open debridement of his wound 2. Recent history of pulmonary embolism patient is on systemic anticoagulation with Xarelto 3. Hypertension-blood pressure controlled, home medications continued with dose adjustment as needed 4. Dyslipidemia-patient is on statin therapy, continued at home dose 5. Mild intermittent asthma patient is on bronchodilator treatment as well as inhaled corticosteroid with budesonide did continue home regimen 6. Rheumatoid arthritis patient is on leflunomide 7. Anemia secondary to anemia of chronic disorder 8. Generalized osteoarthritis 9. GERD 10. History of prostate CA 11. DVT prophylaxis on Xarelto 12. Obesity with BMI of 36.3 weight loss advised Code Visit Inpatient E&M: 15839 Subs Hosp L3
[2017-09-12] MEDS: Fluticasone 0.05% 1 SPRAY NASAL.SRY 2 SPRAY NASAL ×2 (11:16→21:49)
[2017-09-12] MEDS: Azelastine HCl NASAL.SRY 2 SPRAY NASAL ×2 (11:17→21:49)
[2017-09-12] MEDS: Sertraline 50 MG Tablet 150 MG PO (11:17)
[2017-09-12] MEDS: Ferrous Sulfate 325 MG Tablet PO ×2 (11:17→17:32)
[2017-09-12] MEDS: Pantoprazole Sodium 20 MG Tablet PO (11:18)
[2017-09-12] MEDS: Multivitamins,Therapeutic Tablet 1 TABLET PO (11:18)
[2017-09-12] MEDS: guaiFENesin 600 MG Tablet PO ×2 (11:18→21:50)
[2017-09-12] MEDS: Leflunomide 10 MG TABLET PO (11:19)
[2017-09-12 11:35] LABS: Bedside Glucose 97 mg/dL (70-110)
--- NOTE | 2017-09-12 12:41 | PCM.OPRPT ---
Problem List (1) Abscess of left leg Status: Acute Report of Operation Date of Procedure: 09/12/17 Pre-Operative Diagnosis: Infection and cellulitis and abscess of left lower extremity Post-Operative Diagnosis: Skin necrosis with wide debridement Surgery/Procedure Performed:: Incision and wide debridement of necrotic tissue in the left lower extremity. Wound measuring 25 x 10 cm, 1-2 cm depth Specimen's removed: Necrotic tissue sent for culture Estimated Blood Loss (mL): 150 Description of Procedure: The patient was brought back to the operating room. MAC anesthesia was induced. The left lower extremity was prepped with Betadine and elevated. After the left lower extremity was draped all of the prior sutures were removed. The necrotic flap was opened back up. The necrotic areas of the skin flap were sharply excised. These areas were trimmed back to where there was good bleeding. The necrotic tissue was sent for culture. Next the fascia was inspected and appeared to be viable. The area under the flap was pulse lavaged. Hemostasis was obtained with electrocautery. A Betadine soaked gauze was placed in the flap and ABDs were placed over the wound. The wound was then dressed with a Kerlix wrap as well as an Tushar wrap extending from the knee all the way to the toes. The patient was taken to PACU in stable condition and tolerated the procedure well.
--- NOTE | 2017-09-12 12:49 | PCM.PN.BLA ---
Progress Note I performed a formal I&D in the operating room today. Necrotic tissue was excised and all infected tissue was removed. The area was washed and packed with Betadine soaked gauze. The flap that remains is well-perfused at this point but I explained to the family and the patient that this may change. My plan would be to consult Dr. Hinds on Friday when he is back in town and see how he would like to perform coverage. Until then surgery service will continue to follow if any further debridements are necessary. Continue IV antibiotics per ID. Continue to hold Xarelto if possible. Patient may be started on prophylactic Lovenox if needed.
[2017-09-12] MEDS: metroNIDAZOLE 500 MG Tablet PO ×2 (13:14→21:50)
--- NOTE | 2017-09-12 13:19 | PN.ID_ITS ---
Patient Problems: Active and Suspected Problems Cellulitis of left leg (Acute) Abscess of left leg (Acute) Subjective: Feeling ok s/p OR yesterday, no fever, no rash, no n/v/d. - Physical Exam General: Alert, Cooperative Lungs: Clear to auscultation, Normal air movement Cardiovascular: Regular rate, Regular Rhythm Abdomen: Soft, Non Tender, Non-Distended Skin: Incision - leg wrapped Vital Signs Temp Pulse Resp BP Pulse Ox 97.9 F 88 16 101/55 L 97 09/12/17 11:15 09/12/17 11:15 09/12/17 11:15 09/12/17 11:15 09/12/17 11:15 Oxygen Flow Rate (L/min) 2 Oxygen Delivery Method Nasal Cannula Weight: 97.4 kg Body Mass Index (BMI) 36.3 Intake and Output for Last 24 Hours 09/10/17 09/11/17 09/12/17 23:59 23:59 23:59 Intake Total 1750 / 1750 4770 / 4770 2372.5 / 2372.5 Output Total 425 / 425 200 / 200 Balance 1325 / 1325 4770 / 4770 2172.5 / 2172.5 Microbiology Past 72 Hours 09/12/17 Unknown Gram Stain - Final Tissue - Leg, Left 09/10/17 10:10 Gram Stain - Final Wound - Leg, Left Wound Culture - Final Citrobacter freundii Bacillus sp., not anthracis Anaerobic Culture - Preliminary Checking for anaerobes, further studies to follow. Laboratory Tests Past 24 Hrs 09/11/17 09/12/17 09/12/17 18:29 05:30 05:30 WBC 6.1 RBC 3.38 L Hgb 9.4 L Hct 30.0 L MCV 88.8 MCH 27.8 MCHC 31.3 L RDW 15.2 H RDW Differential 49.6 H Plt Count 219 MPV 9.5 Immature Gran % (Auto) 1.800 H Neut % (Auto) 71.4 H Lymph % (Auto) 12.1 L [place] % (Auto) 11.5 H Eos % (Auto) 3.0 Baso % (Auto) 0.2 Absolute Neuts (auto) 4.4 Absolute Lymphs (auto) 0.74 L Total Counted Not Reportable PT INR APTT Sodium 140 Potassium 4.8 Chloride 109 H Carbon Dioxide 23.0 Anion Gap 8 BUN 15 Creatinine 0.98 Estim Creat Clear Calc 52.02 Est GFR (MDRD) Af Amer 95 Est GFR (MDRD) Non-Af 79 BUN/Creatinine Ratio 15.4 Glucose 99 Hemoglobin A1c Calcium 8.8 Blood Type A POSITIVE Antibody Screen NEGATIVE 09/12/17 09/12/17 05:30 05:30 WBC RBC Hgb Hct MCV MCH MCHC RDW RDW Differential Plt Count MPV Immature Gran % (Auto) Neut % (Auto) Lymph % (Auto) [place] % (Auto) Eos % (Auto) Baso % (Auto) Absolute Neuts (auto) Absolute Lymphs (auto) Total Counted PT 14.4 INR 1.1 APTT 41.1 H Sodium Potassium Chloride Carbon Dioxide Anion Gap BUN Creatinine Estim Creat Clear Calc Est GFR (MDRD) Af Amer Est GFR (MDRD) Non-Af BUN/Creatinine Ratio Glucose Hemoglobin A1c 7.7 H Calcium Blood Type Antibody Screen POC Glucose 09/12/17 09/12/17 09/11/17 11:12 06:34 23:23 POC Glucose 97 96 119 H 09/11/17 16:14 POC Glucose 142 H Medical Necessity - Tobacco Use Smoking Status: Never smoker Route of nutrition/ use of supplements: [] Nutritional Intake: [] IV Site: [] León Catheter: [] - Assessment/Plan Antibiotics: [] Assessment/Plan: [] Active and Suspected Problems Cellulitis of left leg (Acute) L cota infected wound with surrounding cellulitis - cx neg so far. Wound worsened after admission, taken to OR 09/[address] Chin. Surg cx pending. Wound cx with citrobacter, bacillus. Will narrow abx to ceftriaxone/flagyl. Plan on po abx at discharge. Will follow
[2017-09-12 16:35] LABS: Bedside Glucose 104 mg/dL (70-110)
[2017-09-12] MEDS: 0.9% Normal Saline 1,000 ML 100 ML IV (17:34)
[2017-09-12] MEDS: Atorvastatin Calcium 10 MG Tablet PO (21:50)
[2017-09-12] MEDS: Montelukast 10 MG Tablet PO (21:50)
[2017-09-12 22:31] LABS: Bedside Glucose 129 mg/dL (70-110)
[2017-09-13] VITALS (12 sets, daily range): BP systolic 136–162; BP diastolic 59–111; PULSE 78–109; RESP 16–20; TEMP 36.8–37.1; O2SAT 93–98
[2017-09-13] MEDS: 0.9% Normal Saline 1,000 ML 100 ML IV ×2 (03:12→13:02)
[2017-09-13] MEDS: Morphine 2 MG/ML Syringe IV ×2 (03:13→09:35)
[2017-09-13] MEDS: Ipratropium 0.5 MG/2.5 ML SOLUTION INHALATION (03:34)
[2017-09-13] MEDS: metroNIDAZOLE 500 MG Tablet PO ×3 (05:54→22:16)
[2017-09-13] MEDS: Acetaminophen 325 MG Tablet 650 MG PO (06:00)
[2017-09-13 06:46] LABS: Bedside Glucose 100 mg/dL (70-110)
[2017-09-13] MEDS: Ipratropium/Albuterol Sulfate 3 ML AMPUL.NEB INHALATION ×3 (07:25→19:24)
[2017-09-13] MEDS: Budesonide Respules 0.5 MG/2 ML AMPUL.NEB. INHALATION ×2 (07:25→19:25)
--- NOTE | 2017-09-13 08:28 | PN_ITS ---
Patient Problems: Active and Suspected Problems Cellulitis of left leg (Acute) Abscess of left leg (Acute) Subjective: Underwent wound debridement on 09/12/2017. 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 SKIN: As Described above Vitals/I&O's: Vital Signs Temp Pulse Resp BP Pulse Ox 98.2 F 78 18 158/111 H 95 09/13/17 03:00 09/13/17 07:26 09/13/17 07:26 09/13/17 06:00 09/13/17 06:00 Oxygen Flow Rate (L/min) 2 Oxygen Delivery Method Room Air Weight: 97.4 kg Body Mass Index (BMI) 36.3 Intake and Output for Last 24 Hours 09/11/17 09/12/17 09/13/17 23:59 23:59 23:59 Intake Total 4770 / 4770 3771.5 / 3771.5 1805 / 1805 Output Total 200 / 200 Balance 4770 / 4770 3571.5 / 3571.5 1805 / 1805 Microbiology Past 72 Hours 09/12/17 Unknown Tissue - Leg, Left Gram Stain - Final 09/10/17 10:10 Wound - Leg, Left Gram Stain - Final 09/10/17 10:10 Wound - Leg, Left Wound Culture - Final Citrobacter freundii Bacillus sp., not anthracis 09/10/17 10:10 Wound - Leg, Left Anaerobic Culture - Preliminary Checking for anaerobes, further studies to follow. Laboratory Results 09/12/17 11:12: POC Glucose 97 09/12/17 16:29: POC Glucose 104 09/12/17 21:46: POC Glucose 129 H 09/13/17 06:33: POC Glucose 100 Current Medications Acetaminophen (Tylenol) 650 mg PO Q6H PRN PRN PRN Reason: Mild Pain (scale 0-3)/T>100.7 Last Admin: 09/13/17 06:00 Dose: 650 mg Al Hydroxide/Mg Hydroxide (Mylanta Ii) 30 ml PO Q6H PRN PRN PRN Reason: Gastric Burning Albuterol/Ipratropium (Duoneb) 3 ml INHALATION Q6HWA.RT [facility] Last Admin: 09/13/17 07:25 Dose: 3 ml Atorvastatin Calcium (Lipitor) 10 mg PO QHS [facility] Last Admin: 09/12/17 21:50 Dose: 10 mg Azelastine HCl (Astelin) 2 spray NASAL BID [facility] Last Admin: 09/12/17 21:49 Dose: 2 sprays Bisacodyl (Dulcolax) 10 mg RECTAL DAILY PRN PRN PRN Reason: Constipation Budesonide (Pulmicort Aerosol) 0.5 mg INHALATION Q12H.RT [facility] Last Admin: 09/13/17 07:25 Dose: 0.5 mg Dextrose (D50w Syringe) 0 gm IV X1 PRN; Protocol PRN Reason: Hypoglycemia Docusate Sodium (Colace) 200 mg PO BID PRN PRN PRN Reason: Constipation Ferrous Sulfate (Ferrous Sulfate) 325 mg PO BIDCM [facility] Last Admin: 09/12/17 17:32 Dose: 325 mg Fluticasone Propionate (Flonase Nasal [place]) 2 spray NASAL BID [facility] Last Admin: 09/12/17 21:49 Dose: 2 sprays Glucagon () 1 mg IM .X1 PRN PRN Reason: Hypoglycemia Guaifenesin (Mucinex) 600 mg PO BID [facility] Last Admin: 09/12/17 21:50 Dose: 600 mg Sodium Chloride () 1,000 mls @ 100 mls/hr IV .Q10H [facility] Last Admin: 09/13/17 03:12 Dose: 100 mls/hr Ceftriaxone Sodium 2 gm/ (Sodium Chloride) 50 mls @ 100 mls/hr IV Q24 [facility] Last Admin: 09/12/17 13:17 Dose: 100 mls/hr Ipratropium [place] (Atrovent) 0.5 mg INHALATION 4X/DAY PRN PRN PRN Reason: SOB &/OR WHEEZING Last Admin: 09/13/17 03:34 Dose: 0.5 mg Lactobacillus Acidophilus (Acidophilus) 2 tablet PO TID [facility] Last Admin: 09/13/17 05:54 Dose: 2 tablet Leflunomide (Leflunomide) 10 mg PO DAILY [facility] Last Admin: 09/12/17 11:19 Dose: 10 mg Lisinopril (Zestril) 20 mg PO DAILY [facility] Last Admin: 09/12/17 11:18 Dose: Not Given Metronidazole (Flagyl) 500 mg PO TID [facility] Last Admin: 09/13/17 05:54 Dose: 500 mg Montelukast Sodium (Singulair) 10 mg PO QHS [facility] Last Admin: 09/12/17 21:50 Dose: 10 mg Morphine Sulfate () 1 - 2 mg IV Q4H PRN PRN PRN Reason: SEVERE PAIN (6-10/10) Last Admin: 09/13/17 03:13 Dose: 2 mg [facility]ivit[facility] ([facility]itamin) [facility] Last Admin: 09/12/17 11:18 Dose: 1 tablet Nutritional Formula (Lactose Free) (Ensure Enlive) 120 ml PO 4X/DAY [facility] Last Admin: 09/12/17 21:53 Dose: 120 ml Nystatin/Triamcinolone Acetonide (Mycolog) 1 applic TOPICAL BID [facility] PRN Reason: Protocol Last Admin: 09/12/17 22:06 Dose: Not Given Ondansetron HCl (Zofran) 4 mg IV Q8H PRN PRN PRN Reason: Nausea Pantoprazole Sodium (Protonix) 20 mg PO DAILY [facility] Last Admin: 09/12/17 11:18 Dose: 20 mg Polyethylene Glycol (Miralax) 17 gm PO DAILY [facility] Last Admin: 09/12/17 11:18 Dose: Not Given Rivaroxaban (Xarelto) 20 mg PO DINNER [facility] Last Admin: 09/11/17 16:34 Dose: Not Given Sertraline HCl (Zoloft) 150 mg PO DAILY [facility] Last Admin: 09/12/17 11:17 Dose: 150 mg Sodium Chloride () 5 - 30 ml IV UD PRN PRN Reason: SALINE FLUSH Last Admin: 09/10/17 03:49 Dose: 10 ml Zolpidem Tartrate (Ambien (Generic)) 5 mg PO QHS PRN PRN PRN Reason: INSOMNIA Medical Necessity - Tobacco Use Smoking Status: Never smoker Assessment/Plan Active and Suspected Problems Cellulitis of left leg (Acute) Abscess of left leg (Acute) Patient is a 76-year-old gentleman admitted with left lower extremity erythema swelling and some pain. Patient had originally been seen in the emergency department after he tripped in his barn and fell on old shovel. He had his wound sutured given a tetanus shot and discharged home on Keflex presented back to the hospital with worsening symptoms and assessment of cellulitis having failed outpatient treatment was made admitted to regular nursing floor 1. Left lower extremity cellulitis involving almost the entire leg from the knee to the ankle. Patient did fail outpatient treatment with Keflex started on Unasyn with consultation placed infectious disease. Patient was seen by Dr. Lucio his notes and recommendations reviewed consultation was placed to Dr. Chin with general surgery after discussing with Dr. Lucio. He did perform bedside debridement on 09/11/2017 and patient was taken to the OR for open debridement of his wound patient wound cultures positive for Citrobacter and bacillus antibiotic therapy subsequently switched to ceftriaxone and Flagyl. Infectious disease 2. Recent history of pulmonary embolism patient is on systemic anticoagulation with Xarelto 3. Hypertension-blood pressure controlled, home medications continued with dose adjustment as needed 4. Dyslipidemia-patient is on statin therapy, continued at home dose 5. Mild intermittent asthma patient is on bronchodilator treatment as well as inhaled corticosteroid with budesonide did continue home regimen 6. Rheumatoid arthritis patient is on leflunomide 7. Anemia secondary to anemia of chronic disorder 8. Generalized osteoarthritis 9. GERD 10. History of prostate CA 11. DVT prophylaxis on Xarelto 12. Obesity with BMI of 36.3 weight loss advised Code Visit Inpatient E&M: 26426 Subs Hosp L2
[2017-09-13] MEDS: Lisinopril 20 MG Tablet PO (08:42)
[2017-09-13] MEDS: Ferrous Sulfate 325 MG Tablet PO ×2 (08:42→16:03)
[2017-09-13] MEDS: Multivitamins,Therapeutic Tablet 1 TABLET PO (08:42)
[2017-09-13] MEDS: 0.9% NaCl Peripheral Flush Adult/Peds IV (09:35)
[2017-09-13] MEDS: Azelastine HCl NASAL.SRY 2 SPRAY NASAL ×2 (10:03→22:15)
[2017-09-13] MEDS: Fluticasone 0.05% 1 SPRAY NASAL.SRY 2 SPRAY NASAL ×2 (10:04→22:16)
[2017-09-13] MEDS: guaiFENesin 600 MG Tablet PO ×2 (10:06→22:17)
[2017-09-13] MEDS: Pantoprazole Sodium 20 MG Tablet PO (10:06)
[2017-09-13] MEDS: Leflunomide 10 MG TABLET PO (10:07)
[2017-09-13] MEDS: Sertraline 50 MG Tablet 150 MG PO (10:08)
--- NOTE | 2017-09-13 10:55 | PN.SURG_ITS ---
Patient Problems: Active and Suspected Problems Cellulitis of left leg (Acute) Abscess of left leg (Acute) Subjective: Patient is not complaining of any fever or chills. Leg pain is appropriately being treated with pain medication. Antibiotics have been adjusted by infectious disease. Objective: From the markings on the leg there is been a significant regression and cellulitis. The muscle appears viable the flap also appears viable. No further wound debridement is needed for today. - Physical Exam Vital Signs Temp Pulse Resp BP Pulse Ox 98.8 F 107 H 18 136/66 H 93 09/13/17 08:00 09/13/17 08:33 09/13/17 08:00 09/13/17 08:00 09/13/17 08:00 Oxygen Flow Rate (L/min) 2 Oxygen Delivery Method Room Air Weight: 214 lb 11.684 oz Body Mass Index (BMI) 36.3 Intake and Output for Last 24 Hours 09/11/17 09/12/17 09/13/17 23:59 23:59 23:59 Intake Total 4770 / 4770 3771.5 / 3771.5 1805 / 1805 Output Total 200 / 200 Balance 4770 / 4770 3571.5 / 3571.5 1805 / 1805 Microbiology Past 72 Hours 09/12/17 Unknown Gram Stain - Final Tissue - Leg, Left Wound Culture - Preliminary GNR lactose mangle tender 09/10/17 10:10 Gram Stain - Final Wound - Leg, Left Wound Culture - Final Citrobacter freundii Bacillus sp., not anthracis Anaerobic Culture - Preliminary Checking for anaerobes, further studies to follow. POC Glucose 09/13/17 09/12/17 09/12/17 06:33 21:46 16:29 POC Glucose 100 129 H 104 09/12/17 11:12 POC Glucose 97 Medical Necessity - Tobacco Use Smoking Status: Never smoker Assessment/Plan Active and Suspected Problems Cellulitis of left leg (Acute) Abscess of left leg (Acute) Continue with the dressing changes. We will continue with IV antibiotics. Possible further surgical wound debridement Friday or Friday of next week.
[2017-09-13] MEDS: HYDROcodone Bitartrate/Apap 5/325 Tablet PO ×2 (12:02→22:14)
[2017-09-13 12:21] LABS: Bedside Glucose 132 mg/dL (70-110)
[2017-09-13 16:01] LABS: Bedside Glucose 142 mg/dL (70-110)
[2017-09-13] MEDS: Rivaroxaban 20 MG Tablet PO (16:03)
[2017-09-13 21:56] LABS: Bedside Glucose 101 mg/dL (70-110)
[2017-09-13] MEDS: Atorvastatin Calcium 10 MG Tablet PO (22:17)
[2017-09-13] MEDS: Montelukast 10 MG Tablet PO (22:18)
[2017-09-14] VITALS (7 sets, daily range): BP systolic 134–143; BP diastolic 77–82; PULSE 85–100; RESP 16–20; TEMP 36.5–36.9; O2SAT 92–100
[2017-09-14] MEDS: Acetaminophen 325 MG Tablet 650 MG PO (00:47)
[2017-09-14] MEDS: 0.9% NaCl Peripheral Flush Adult/Peds IV ×3 (00:52→22:21)
[2017-09-14] MEDS: metroNIDAZOLE 500 MG Tablet PO ×3 (05:34→21:15)
[2017-09-14] MEDS: Ipratropium/Albuterol Sulfate 3 ML AMPUL.NEB INHALATION ×3 (07:14→18:37)
[2017-09-14] MEDS: Budesonide Respules 0.5 MG/2 ML AMPUL.NEB. INHALATION ×2 (07:14→18:37)
[2017-09-14 07:21] LABS: Bedside Glucose 98 mg/dL (70-110)
--- NOTE | 2017-09-14 07:36 | PCM.PN.HOSP ---
Patient Problems: Active and Suspected Problems Cellulitis of left leg (Acute) Abscess of left leg (Acute) Subjective: Patient seen complains of intermittent neck pain was started on [place] which appears to be helping Objective: GENERAL: cooperative HEENT: Clear conjunctiva, NECK; supple, normal thyroid, CHEST: Diminished to auscultation bilaterally, HEART: Regular S1 S2, no audible murmurs ABDOMEN: soft, non-tender, normoactive bowel sounds, RECTAL: deferred EXTREMITIES: LLE in surgical dressing END FINDER TWISTING DEPARTMENT: Awake, no lateralizing signs. SKIN: As Described above Vitals/I&O's: Vital Signs Temp Pulse Resp BP Pulse Ox 97.7 F L 100 18 136/78 H 92 09/14/17 03:59 09/14/17 03:59 09/14/17 03:59 09/14/17 03:59 09/14/17 03:59 Oxygen Flow Rate (L/min) 2 Oxygen Delivery Method Room Air Weight: 97.4 kg Body Mass Index (BMI) 36.3 Intake and Output for Last 24 Hours 09/12/17 09/13/17 09/14/17 23:59 23:59 23:59 Intake Total 3771.5 / 3771.5 3408 / 3408 2074 / 2074 Output Total 200 / 200 150 / 150 75 / 75 Balance 3571.5 / 3571.5 3258 / 3258 1998 Microbiology Past 72 Hours 09/12/17 Unknown Tissue - Leg, Left Gram Stain - Final 09/12/17 Unknown Tissue - Leg, Left Wound 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 Laboratory Results 09/13/17 12:14: POC Glucose 132 H 09/13/17 15:54: POC Glucose 142 H 09/13/17 21:49: POC Glucose 101 09/14/17 07:15: POC Glucose 98 Current Medications Acetaminophen (Tylenol) 650 mg PO Q6H PRN PRN PRN Reason: Mild Pain (scale 0-3)/T>100.7 Last Admin: 09/14/17 00:47 Dose: 650 mg Hydrocodone Bitart/Acetaminophen ([place] 5mg-325mg) 1 tablet PO Q4H PRN PRN PRN Reason: SEVERE PAIN (6-10/10) Last Admin: 09/13/17 22:14 Dose: 1 tablet Al Hydroxide/Mg Hydroxide (Mylanta Ii) 30 ml PO Q6H PRN PRN PRN Reason: Gastric Burning Albuterol/Ipratropium (Duoneb) 3 ml INHALATION Q6HWA.RT [facility] Last Admin: 09/14/17 07:14 Dose: 3 ml Atorvastatin Calcium (Lipitor) 10 mg PO QHS [facility] Last Admin: 09/13/17 22:17 Dose: 10 mg Azelastine HCl (Astelin) 2 spray NASAL BID [facility] Last Admin: 09/13/17 22:15 Dose: 2 sprays Bisacodyl (Dulcolax) 10 mg RECTAL DAILY PRN PRN PRN Reason: Constipation Budesonide (Pulmicort Aerosol) 0.5 mg INHALATION Q12H.RT [facility] Last Admin: 09/14/17 07:14 Dose: 0.5 mg Dextrose (D50w Syringe) 0 gm IV X1 PRN; Protocol PRN Reason: Hypoglycemia Docusate Sodium (Colace) 200 mg PO BID PRN PRN PRN Reason: Constipation Ferrous Sulfate (Ferrous Sulfate) 325 mg PO BIDCM [facility] Last Admin: 09/13/17 16:03 Dose: 325 mg Fluticasone Propionate (Flonase Nasal [place]) 2 spray NASAL BID [facility] Last Admin: 09/13/17 22:16 Dose: 2 sprays Glucagon () 1 mg IM .X1 PRN PRN Reason: Hypoglycemia Guaifenesin (Mucinex) 600 mg PO BID [facility] Last Admin: 09/13/17 22:17 Dose: 600 mg Ceftriaxone Sodium 2 gm/ (Sodium Chloride) 50 mls @ 100 mls/hr IV Q24 [facility] Last Admin: 09/13/17 10:00 Dose: 100 mls/hr Ipratropium [place] (Atrovent) 0.5 mg INHALATION 4X/DAY PRN PRN PRN Reason: SOB &/OR WHEEZING Last Admin: 09/13/17 03:34 Dose: 0.5 mg Lactobacillus Acidophilus (Acidophilus) 2 tablet PO TID [facility] Last Admin: 09/14/17 05:34 Dose: 2 tablet Leflunomide (Leflunomide) 10 mg PO DAILY [facility] Last Admin: 09/13/17 10:07 Dose: 10 mg Lisinopril (Zestril) 20 mg PO DAILY [facility] Last Admin: 09/13/17 08:42 Dose: 20 mg Metronidazole (Flagyl) 500 mg PO TID [facility] Last Admin: 09/14/17 05:34 Dose: 500 mg Montelukast Sodium (Singulair) 10 mg PO QHS [facility] Last Admin: 09/13/17 22:18 Dose: 10 mg Morphine Sulfate () 1 - 2 mg IV Q4H PRN PRN PRN Reason: SEVERE PAIN (6-10/10) Last Admin: 09/13/17 09:35 Dose: 2 mg [facility]) [facility] Last Admin: 09/13/17 08:42 Dose: 1 tablet Nutritional Formula (Lactose Free) (Ensure Enlive) 120 ml PO 4X/DAY [facility] Last Admin: 09/13/17 22:15 Dose: 120 ml Nystatin/Triamcinolone Acetonide (Mycolog) 1 applic TOPICAL BID [facility] PRN Reason: Protocol Last Admin: 09/13/17 22:19 Dose: Not Given Ondansetron HCl (Zofran) 4 mg IV Q8H PRN PRN PRN Reason: Nausea Pantoprazole Sodium (Protonix) 20 mg PO DAILY [facility] Last Admin: 09/13/17 10:06 Dose: 20 mg Polyethylene Glycol (Miralax) 17 gm PO DAILY [facility] Last Admin: 09/13/17 10:07 Dose: Not Given Rivaroxaban (Xarelto) 20 mg PO DINNER [facility] Last Admin: 09/13/17 16:03 Dose: 20 mg Sertraline HCl (Zoloft) 150 mg PO DAILY [facility] Last Admin: 09/13/17 10:08 Dose: 150 mg Sodium Chloride () 5 - 30 ml IV UD PRN PRN Reason: SALINE FLUSH Last Admin: 09/14/17 00:52 Dose: 10 ml Zolpidem Tartrate (Ambien (Generic)) 5 mg PO QHS PRN PRN PRN Reason: INSOMNIA Medical Necessity - Tobacco Use Smoking Status: Never smoker Assessment/Plan Active and Suspected Problems Cellulitis of left leg (Acute) Abscess of left leg (Acute) Patient is a 76-year-old gentleman admitted with left lower extremity erythema swelling and some pain. Patient had originally been seen in the emergency department after he tripped in his barn and fell on old shovel. He had his wound sutured given a tetanus shot and discharged home on Keflex presented back to the hospital with worsening symptoms and assessment of cellulitis having failed outpatient treatment was made admitted to regular nursing floor 1. Left lower extremity cellulitis involving almost the entire leg from the knee to the ankle. Patient did fail outpatient treatment with Keflex started on Unasyn with consultation placed infectious disease. Patient was seen by Dr. Lucio his notes and recommendations reviewed consultation was placed to Dr. Chin with general surgery after discussing with Dr. Lucio. He did perform bedside debridement on 09/11/2017 and patient was taken to the OR for open debridement of his wound patient wound cultures positive for Citrobacter and bacillus antibiotic therapy subsequently switched to ceftriaxone and Flagyl by Infectious disease patient is also being followed by general surgery and plan is for repeat wound debridement either on 09/15/2017 or 09/16/2017 2. Recent history of pulmonary embolism patient is on systemic anticoagulation with Xarelto 3. Hypertension-blood pressure controlled, home medications continued with dose adjustment as needed 4. Dyslipidemia-patient is on statin therapy, continued at home dose 5. Mild intermittent asthma patient is on bronchodilator treatment as well as inhaled corticosteroid with budesonide did continue home regimen 6. Rheumatoid arthritis patient is on leflunomide 7. Anemia secondary to anemia of chronic disorder 8. Generalized osteoarthritis 9. GERD 10. History of prostate CA 11. DVT prophylaxis on Xarelto 12. Obesity with BMI of 36.3 weight loss advised Code Visit Inpatient E&M: 03862 Subs Hosp L2
[2017-09-14] MEDS: Sertraline 50 MG Tablet 150 MG PO (07:55)
[2017-09-14] MEDS: Ferrous Sulfate 325 MG Tablet PO ×2 (07:55→18:18)
[2017-09-14] MEDS: guaiFENesin 600 MG Tablet PO ×2 (07:55→21:15)
[2017-09-14] MEDS: Lisinopril 20 MG Tablet PO (07:56)
[2017-09-14] MEDS: Multivitamins,Therapeutic Tablet 1 TABLET PO (07:57)
[2017-09-14] MEDS: Leflunomide 10 MG TABLET PO (07:58)
[2017-09-14] MEDS: Azelastine HCl NASAL.SRY 2 SPRAY NASAL ×2 (07:59→21:13)
[2017-09-14] MEDS: Fluticasone 0.05% 1 SPRAY NASAL.SRY 2 SPRAY NASAL ×2 (07:59→21:14)
[2017-09-14] MEDS: Pantoprazole Sodium 20 MG Tablet PO (08:00)
[2017-09-14 08:18] LABS: Hematocrit 28.3 % (40-54); Hemoglobin 9.1 g/dl (13.0-16.5); Mean Corp Hgb Conc 32.2 g/gl (32-36); Mean Corpuscular Hgb 28.6 pg (27.0-32.0); Mean Platelet Vol. 9.3 fl (6.2-12.0); Platelet Count 287 K/mm3 (150-450); RBC Distribution Width SD 47.5 fl (35.1-43.9); Red Blood Count 3.18 M/mm3 (4.6-6.2); White Blood Count 5.9 K/mm3 (4.4-11.0)
[2017-09-14 08:19] LABS: Scan Indicated on CBC? Y/N NO
[2017-09-14 08:38] LABS: Anion Gap 7 (5-15); BUN 11 mg/dL (7-18); BUN/Creat Ratio 11.1 RATIO (10-20); Calcium,Total 8.7 mg/dL (8.5-10.1); Chloride 105 mmol/L (98-107); Creatinine, Serum 0.99 mg/dL (0.70-1.30); EST Glomerular Filtration Rate 78 mL/min (>60); Est Glom Filt Rate - Afr Amer 94 mL/min (>60); Estimated Creatinine Clearance 51.49 ml/min; Glucose 139 mg/dL (74-106); Magnesium 1.5 mg/dL (1.6-2.6); Potassium 4.2 mmol/L (3.5-5.1); Sodium Level 135 mmol/L (136-145)
[2017-09-14] MEDS: Ondansetron 4 MG/2 ML Vial IV (09:20)
[2017-09-14] MEDS: Mag Hydrox/Al Hydrox/Simeth 30 ML UDC PO ×2 (09:20→19:30)
--- NOTE | 2017-09-14 10:10 | PCM.PN.SRG ---
Patient Problems: Active and Suspected Problems Cellulitis of left leg (Acute) Abscess of left leg (Acute) Subjective: No new complaints at this time. Pain is controlled. Objective: Really no significant cellulitis at all within the lower extremity. Wound has not changed. Decision for further surgery will be discussed this coming Friday or Friday. No devitalized tissue that needs to be debrided at this time. - Physical Exam Vital Signs Temp Pulse Resp BP Pulse Ox 98.5 F 93 20 H 143/79 H 97 09/14/17 07:52 09/14/17 07:52 09/14/17 07:52 09/14/17 07:52 09/14/17 07:52 Oxygen Flow Rate (L/min) 2 Oxygen Delivery Method Room Air Weight: 214 lb 11.684 oz Body Mass Index (BMI) 36.3 Intake and Output for Last 24 Hours 09/12/17 09/13/17 09/14/17 23:59 23:59 23:59 Intake Total 3771.5 / 3771.5 3408 / 3408 2073 / 2073 Output Total 200 / 200 150 / 150 75 / 75 Balance 3571.5 / 3571.5 3258 / 3258 1998 Microbiology Past 72 Hours 09/12/17 Unknown Gram Stain - Final Tissue - Leg, Left Wound Culture - Preliminary Citrobacter freundii GPC Poss Enterococcus sp 09/10/17 10:10 Gram Stain - Final Wound - Leg, Left Wound Culture - Final Citrobacter freundii Bacillus sp., not anthracis Anaerobic Culture - Preliminary Checking for anaerobes, further studies to follow. Laboratory Tests Past 24 Hrs 09/14/17 09/14/17 08:08 08:08 WBC 5.9 RBC 3.18 L Hgb 9.1 L Hct 28.3 L MCV 89.0 MCH 28.6 MCHC 32.2 RDW 15.0 H RDW Differential 47.5 H Plt Count 287 MPV 9.3 Sodium 135 L Potassium 4.2 Chloride 105 Carbon Dioxide 23.0 Anion Gap 7 BUN 11 Creatinine 0.99 Estim Creat Clear Calc 51.49 Est GFR (MDRD) Af Amer 94 Est GFR (MDRD) Non-Af 78 BUN/Creatinine Ratio 11.1 Glucose 139 H Calcium 8.7 Magnesium 1.5 L POC Glucose 04/29/18 04/28/18 04/28/18 07:15 21:49 15:54 POC Glucose 98 101 142 H 09/13/17 12:14 POC Glucose 132 H Medical Necessity - Tobacco Use Smoking Status: Never smoker Assessment/Plan Active and Suspected Problems Cellulitis of left leg (Acute) Abscess of left leg (Acute) Continue with the dressing changes. We will continue with IV antibiotics. Possible further surgical wound debridement Friday or Friday of next week.
[2017-09-14 11:50] LABS: Bedside Glucose 116 mg/dL (70-110)
[2017-09-14 18:15] LABS: Bedside Glucose 148 mg/dL (70-110)
[2017-09-14] MEDS: Rivaroxaban 20 MG Tablet PO (18:18)
[2017-09-14] MEDS: Atorvastatin Calcium 10 MG Tablet PO (21:15)
[2017-09-14] MEDS: Montelukast 10 MG Tablet PO (21:17)
[2017-09-14 21:26] LABS: Bedside Glucose 111 mg/dL (70-110)
[2017-09-15] VITALS (7 sets, daily range): BP systolic 111–153; BP diastolic 50–77; PULSE 80–92; RESP 16–20; TEMP 37–37.2; O2SAT 94–99
[2017-09-15] MEDS: Acetaminophen 325 MG Tablet 650 MG PO (02:16)
[2017-09-15] MEDS: metroNIDAZOLE 500 MG Tablet PO ×3 (05:09→22:44)
--- NOTE | 2017-09-15 06:06 | PCM.RX.CS ---
Consult Pharmacy has been consulted to manage selected antiobiotic: Vancomycin Type of Consult: New start Suspected Infection: Skin/Soft tissue Labs: Sodium 135 mmol/L (136-145) L 09/14/17 08:08 Potassium 4.2 mmol/L (3.5-5.1) 09/14/17 08:08 Chloride 105 mmol/L (98-107) 09/14/17 08:08 Carbon Dioxide 23.0 mmol/L (21.0-32.0) 09/14/17 08:08 Anion Gap 7 (5-15) 09/14/17 08:08 BUN 11 mg/dL (7-18) 09/14/17 08:08 Creatinine 0.99 mg/dL (0.70-1.30) 09/14/17 08:08 Est GFR (MDRD) Af Amer 94 mL/min (>60) 09/14/17 08:08 Est GFR (MDRD) Non-Af 78 mL/min (>60) 09/14/17 08:08 BUN/Creatinine Ratio 11.1 RATIO (10-20) 09/14/17 08:08 Glucose 139 mg/dL (74-106) H 09/14/17 08:08 Microbiology: Microbiology 09/12/17 Unknown Tissue - Leg, Left Gram Stain - Final 09/12/17 Unknown Tissue - Leg, Left Wound Culture - Preliminary Citrobacter freundii GPC Poss Enterococcus sp 09/10/17 10:10 Wound - Leg, Left Gram Stain - Final 09/10/17 10:10 Wound - Leg, Left Wound Culture - Final Citrobacter freundii Bacillus sp., not anthracis 09/10/17 10:10 Wound - Leg, Left Anaerobic Culture - Preliminary Checking for anaerobes, further studies to follow. Estimated Creatinine Clearance: 51.49 Goal Trough: 15-20 mcg/mL Pharmacy Plan for Drug Dosing: Pharmacy Service will continue to monitor and adjust dosing as required. Medications Vancomycin HCl (Vancomycin) 1,000 mg in 200 mls @ 200 mls/hr IV Q12H [facility] Last Admin: 09/14/17 21:03 Dose: 200 mls/hr Follow-Up Labs: Trough Vancomycin Labs to be done on [date and time ordered]: 09-16-17 @0900
[2017-09-15 06:12] LABS: Hematocrit 29.1 % (40-54); Hemoglobin 9.3 g/dl (13.0-16.5); Mean Corpuscular Hgb 28.1 pg (27.0-32.0); Mean Corpuscular Volume 87.9 fL (80-94); Mean Platelet Vol. 9.5 fl (6.2-12.0); Platelet Count 311 K/mm3 (150-450); RBC Distribution Width CV 15.5 % (11.6-14.6); RBC Distribution Width SD 49.8 fl (35.1-43.9); Red Blood Count 3.31 M/mm3 (4.6-6.2); White Blood Count 5.9 K/mm3 (4.4-11.0)
[2017-09-15 06:17] LABS: Anion Gap 6 (5-15); BUN 12 mg/dL (7-18); BUN/Creat Ratio 11.5 RATIO (10-20); Calcium,Total 8.8 mg/dL (8.5-10.1); Chloride 105 mmol/L (98-107); Creatinine, Serum 1.04 mg/dL (0.70-1.30); EST Glomerular Filtration Rate 73 mL/min (>60); Est Glom Filt Rate - Afr Amer 89 mL/min (>60); Estimated Creatinine Clearance 49.02 ml/min; Glucose 117 mg/dL (74-106); Potassium 4.4 mmol/L (3.5-5.1); Sodium Level 137 mmol/L (136-145)
[2017-09-15 06:26] LABS: Bedside Glucose 117 mg/dL (70-110)
[2017-09-15 06:42] LABS: Scan Indicated on CBC? Y/N NO
[2017-09-15] MEDS: Ipratropium/Albuterol Sulfate 3 ML AMPUL.NEB INHALATION ×2 (07:14→19:31)
[2017-09-15] MEDS: Budesonide Respules 0.5 MG/2 ML AMPUL.NEB. INHALATION ×2 (07:14→19:31)
--- NOTE | 2017-09-15 08:13 | PCM.PN.SRG ---
Patient Problems: Active and Suspected Problems Cellulitis of left leg (Acute) Abscess of left leg (Acute) Subjective: Patient is doing well with no complaints. - Physical Exam General: Alert, Oriented x3, Cooperative HEENT: Atraumatic, PERRLA, EOMI Neck: Supple Lungs: Normal air movement Cardiovascular: Regular rate, Regular Rhythm Abdomen: Soft, Non Tender, Non-Distended Extremities: - - Left lower extremity wound is clean and dry. There is good viability of the flap. There is no purulent drainage. Cellulitis is minimal. No necrosis. Psych/Mental Status: Normal Affect, Appropriate Vital Signs Temp Pulse Resp BP Pulse Ox 98.6 F 92 18 153/77 H 96 09/15/17 03:24 09/15/17 03:24 09/15/17 03:24 09/15/17 03:24 09/15/17 03:24 Oxygen Flow Rate (L/min) 2 Oxygen Delivery Method Room Air Weight: 214 lb 11.684 oz Body Mass Index (BMI) 36.3 Intake and Output for Last 24 Hours 09/13/17 09/14/17 09/15/17 23:59 23:59 23:59 Intake Total 3408 / 3408 2598 / 2598 735 / 735 Output Total 150 / 150 75 / 75 Balance 3258 / 3258 2523 / 2523 735 / 735 Microbiology Past 72 Hours 09/12/17 Unknown Gram Stain - Final Tissue - Leg, Left Wound Culture - Final Citrobacter freundii Enterococcus faecalis Anaerobic Culture - Preliminary Checking for anaerobes, further studies to follow. 09/10/17 10:10 Gram Stain - Final Wound - Leg, Left Wound Culture - Final Citrobacter freundii Bacillus sp., not anthracis Anaerobic Culture - Preliminary Checking for anaerobes, further studies to follow. Laboratory Tests Past 24 Hrs 09/14/17 09/14/17 09/15/17 08:08 08:08 05:20 WBC 5.9 5.9 RBC 3.18 L 3.31 L Hgb 9.1 L 9.3 L Hct 28.3 L 29.1 L MCV 89.0 87.9 MCH 28.6 28.1 MCHC 32.2 32.0 RDW 15.0 H 15.5 H RDW Differential 47.5 H 49.8 H Plt Count 287 311 MPV 9.3 9.5 Sodium 135 L Potassium 4.2 Chloride 105 Carbon Dioxide 23.0 Anion Gap 7 BUN 11 Creatinine 0.99 Estim Creat Clear Calc 51.49 Est GFR (MDRD) Af Amer 94 Est GFR (MDRD) Non-Af 78 BUN/Creatinine Ratio 11.1 Glucose 139 H Calcium 8.7 Magnesium 1.5 L 09/15/17 05:20 WBC RBC Hgb Hct MCV MCH MCHC RDW RDW Differential Plt Count MPV Sodium 137 Potassium 4.4 Chloride 105 Carbon Dioxide 26.0 Anion Gap 6 BUN 12 Creatinine 1.04 Estim Creat Clear Calc 49.02 Est GFR (MDRD) Af Amer 89 Est GFR (MDRD) Non-Af 73 BUN/Creatinine Ratio 11.5 Glucose 117 H Calcium 8.8 Magnesium 2.0 POC Glucose 09/15/17 09/14/17 09/14/17 06:18 21:12 18:11 POC Glucose 117 H 111 H 148 H 09/14/17 11:44 POC Glucose 116 H Medical Necessity - Tobacco Use Smoking Status: Never smoker Assessment/Plan Active and Suspected Problems Cellulitis of left leg (Acute) Abscess of left leg (Acute) 76-year-old male with left lower extremity infection 1. Patient is doing well. I unwrapped his leg and looked at the flap. There is good bleeding at the edges with no appearance of necrosis. There is no purulent discharge and cellulitis is minimal. 2. I am having the wound nurse assessed today for possible wound VAC and I would recommend consult to Dr. Hinds tomorrow when he is back in town to assess what kind of coverage would be appropriate. Wound VAC versus skin graft. Continue antibiotics per ID. Homero Chin MD Pager: [facility] [address] [place] [address], [address] [place] [phone] Office:
[2017-09-15] MEDS: Ferrous Sulfate 325 MG Tablet PO ×2 (08:22→16:52)
[2017-09-15] MEDS: Multivitamins,Therapeutic Tablet 1 TABLET PO (08:22)
[2017-09-15] MEDS: 0.9% NaCl Peripheral Flush Adult/Peds IV ×3 (08:24→10:27)
[2017-09-15] MEDS: guaiFENesin 600 MG Tablet PO ×2 (09:57→22:44)
[2017-09-15] MEDS: Sertraline 50 MG Tablet 150 MG PO (09:57)
[2017-09-15] MEDS: Lisinopril 20 MG Tablet PO (09:57)
[2017-09-15] MEDS: Pantoprazole Sodium 20 MG Tablet PO (09:57)
[2017-09-15] MEDS: Leflunomide 10 MG TABLET PO (09:58)
[2017-09-15] MEDS: Azelastine HCl NASAL.SRY 2 SPRAY NASAL ×2 (09:59→22:45)
[2017-09-15] MEDS: Fluticasone 0.05% 1 SPRAY NASAL.SRY 2 SPRAY NASAL ×2 (09:59→22:45)
--- NOTE | 2017-09-15 10:12 | PCM.PN.HOSP ---
Patient Problems: Active and Suspected Problems Cellulitis of left leg (Acute) Abscess of left leg (Acute) Subjective: he is a 76-year-old gentleman admitted with left lower extremity erythema swelling and some pain. Patient had originally been seen in the emergency department after he tripped in his barn and fell on old shovel. He had his wound sutured given a tetanus shot and discharged home on Keflex presented back to the hospital with worsening symptoms and assessment of cellulitis having failed outpatient treatment was made admitted to regular nursing floor Vitals/I&O's: Vital Signs Temp Pulse Resp BP Pulse Ox 98.9 F 81 20 H 126/72 H 97 09/15/17 09:48 09/15/17 09:48 09/15/17 09:48 09/15/17 09:48 09/15/17 09:48 Oxygen Flow Rate (L/min) 2 Oxygen Delivery Method Room Air Weight: 97.4 kg Body Mass Index (BMI) 36.3 Intake and Output for Last 24 Hours 09/13/17 09/14/17 09/15/17 23:59 23:59 23:59 Intake Total 3408 / 3408 2598 / 2598 735 / 735 Output Total 150 / 150 75 / 75 Balance 3258 / 3258 2523 / 2523 735 / 735 Microbiology Past 72 Hours 09/12/17 Unknown Tissue - Leg, Left Gram Stain - Final 09/12/17 Unknown Tissue - Leg, Left Wound Culture - Final Citrobacter freundii Enterococcus faecalis 09/12/17 Unknown Tissue - Leg, Left Anaerobic Culture - Preliminary Checking for anaerobes, further studies to follow. 09/10/17 10:10 Wound - Leg, Left Gram Stain - Final 09/10/17 10:10 Wound - Leg, Left Wound Culture - Final Citrobacter freundii Bacillus sp., not anthracis 09/10/17 10:10 Wound - Leg, Left Anaerobic Culture - Preliminary Checking for anaerobes, further studies to follow. Laboratory Results 09/14/17 11:44: POC Glucose 116 H 09/14/17 18:11: POC Glucose 148 H 09/14/17 21:12: POC Glucose 111 H 09/15/17 05:20: WBC 5.9, RBC 3.31 L, Hgb 9.3 L, Hct 29.1 L, MCV 87.9, MCH 28.1, MCHC 32.0, RDW 15.5 H, RDW Differential 49.8 H, Plt Count 311, MPV 9.5 09/15/17 05:20: Sodium 137, Potassium 4.4, Chloride 105, Carbon Dioxide 26.0, Anion Gap 6, BUN 12, Creatinine 1.04, Estim Creat Clear Calc 49.02, Est GFR (MDRD) Af Amer 89, Est GFR (MDRD) Non-Af 73, BUN/Creatinine Ratio 11.5, Glucose 117 H, Calcium 8.8, Magnesium 2.0 09/15/17 06:18: POC Glucose 117 H Current Medications Acetaminophen (Tylenol) 650 mg PO Q6H PRN PRN PRN Reason: Mild Pain (scale 0-3)/T>100.7 Last Admin: 09/15/17 02:16 Dose: 650 mg Hydrocodone Bitart/Acetaminophen ([place] 5mg-325mg) 1 tablet PO Q4H PRN PRN PRN Reason: SEVERE PAIN (6-10/10) Last Admin: 09/13/17 22:14 Dose: 1 tablet Al Hydroxide/Mg Hydroxide (Mylanta Ii) 30 ml PO Q6H PRN PRN PRN Reason: Gastric Burning Last Admin: 09/14/17 19:30 Dose: 30 ml Albuterol/Ipratropium (Duoneb) 3 ml INHALATION Q6HWA.RT [facility] Last Admin: 09/15/17 07:14 Dose: 3 ml Amoxicillin/Clavulanate Potassium (Augmentin Tablet) 875 mg PO BID [facility] Atorvastatin Calcium (Lipitor) 10 mg PO QHS [facility] Last Admin: 09/14/17 21:15 Dose: 10 mg Azelastine HCl (Astelin) 2 spray NASAL BID [facility] Last Admin: 09/15/17 09:59 Dose: 2 sprays Bisacodyl (Dulcolax) 10 mg RECTAL DAILY PRN PRN PRN Reason: Constipation Budesonide (Pulmicort Aerosol) 0.5 mg INHALATION Q12H.RT [facility] Last Admin: 09/15/17 07:14 Dose: 0.5 mg Ciprofloxacin HCl (Cipro) 500 mg PO BID [facility] Dextrose (D50w Syringe) 0 gm IV X1 PRN; Protocol PRN Reason: Hypoglycemia Docusate Sodium (Colace) 200 mg PO BID PRN PRN PRN Reason: Constipation [facility]ous S[facility] ([facility]) [facility] Last Admin: 09/15/17 08:22 Dose: 325 mg Fluticasone Propionate (Flonase Nasal [place]) 2 spray NASAL BID [facility] Last Admin: 09/15/17 09:59 Dose: 2 sprays Glucagon () 1 mg IM .X1 PRN PRN Reason: Hypoglycemia Guaifenesin (Mucinex) 600 mg PO BID [facility] Last Admin: 09/15/17 09:57 Dose: 600 mg Ipratropium [place] (Atrovent) 0.5 mg INHALATION 4X/DAY PRN PRN PRN Reason: SOB &/OR WHEEZING Last Admin: 09/13/17 03:34 Dose: 0.5 mg Lactobacillus Acidophilus (Acidophilus) 2 tablet PO TID [facility] Last Admin: 09/15/17 05:09 Dose: 2 tablet Leflunomide (Leflunomide) 10 mg PO DAILY [facility] Last Admin: 09/15/17 09:58 Dose: 10 mg Lisinopril (Zestril) 20 mg PO DAILY [facility] Last Admin: 09/15/17 09:57 Dose: 20 mg Metronidazole (Flagyl) 500 mg PO TID [facility] Last Admin: 09/15/17 05:09 Dose: 500 mg Montelukast Sodium (Singulair) 10 mg PO QHS [facility] Last Admin: 09/14/17 21:17 Dose: 10 mg Morphine Sulfate () 1 - 2 mg IV Q4H PRN PRN PRN Reason: SEVERE PAIN (6-10/10) Last Admin: 09/13/17 09:35 Dose: 2 mg Multivitamins ([facility]amin) [facility] Last Admin: 09/15/17 08:22 Dose: 1 tablet Nutritional Formula (Lactose Free) (Ensure Enlive) 120 ml PO 4X/DAY [facility] Last Admin: 09/14/17 21:03 Dose: 120 ml Nystatin/Triamcinolone Acetonide (Mycolog) 1 applic TOPICAL BID [facility] PRN Reason: Protocol Last Admin: 09/15/17 09:55 Dose: Not Given Ondansetron HCl (Zofran) 4 mg IV Q8H PRN PRN PRN Reason: Nausea Last Admin: 09/14/17 09:20 Dose: 4 mg Pantoprazole Sodium (Protonix) 20 mg PO DAILY [facility] Last Admin: 09/15/17 09:57 Dose: 20 mg Polyethylene Glycol (Miralax) 17 gm PO DAILY [facility] Last Admin: 09/15/17 09:56 Dose: Not Given Rivaroxaban (Xarelto) 20 mg PO DINNER [facility] Last Admin: 09/14/17 18:18 Dose: 20 mg Sertraline HCl (Zoloft) 150 mg PO DAILY [facility] Last Admin: 09/15/17 09:57 Dose: 150 mg Sodium Chloride () 5 - 30 ml IV UD PRN PRN Reason: SALINE FLUSH Last Admin: 09/15/17 09:59 Dose: 10 ml Zolpidem Tartrate (Ambien (Generic)) 5 mg PO QHS PRN PRN PRN Reason: INSOMNIA Medical Necessity - Tobacco Use Smoking Status: Never smoker Assessment/Plan Active and Suspected Problems Cellulitis of left leg (Acute) Abscess of left leg (Acute) 1. Left lower extremity infection; s/p debridement , continue IV antibiotics. The patient will likely need a wound VAC device. 2. Recent PE; is on Xarelto. 3. Hypertension; this is controlled. 4. Rheumatoid arthritis patient is on leflunomide 5. Mild intermittent bronchial asthma ; stable. 6. Anemia of chronic disease; will continue to monitor H&H. 7. DVT prophylaxis on Xarelto Code Visit Inpatient E&M: [id number] [facility] Hosp L2
--- NOTE | 2017-09-15 10:15 | NURSING ---
wound photo: left lower leg
[2017-09-15] MEDS: Mag Hydrox/Al Hydrox/Simeth 30 ML UDC PO (10:19)
[2017-09-15] MEDS: Ondansetron 4 MG/2 ML Vial IV (10:27)
--- NOTE | 2017-09-15 11:11 | PN.ID_ITS ---
Patient Problems: Active and Suspected Problems Cellulitis of left leg (Acute) Abscess of left leg (Acute) Subjective: Feeling well, no fever, no n/v/d. - Physical Exam General: Alert, Cooperative Lungs: Clear to auscultation, Normal air movement Cardiovascular: Regular rate, Regular Rhythm Abdomen: Soft, Non Tender, Non-Distended Skin: Incision - leg wrapped Vital Signs Temp Pulse Resp BP Pulse Ox 98.9 F 81 20 H 126/72 H 97 09/15/17 09:48 09/15/17 09:48 09/15/17 09:48 09/15/17 09:48 09/15/17 09:48 Oxygen Flow Rate (L/min) 2 Oxygen Delivery Method Room Air Weight: 97.4 kg Body Mass Index (BMI) 36.3 Intake and Output for Last 24 Hours 09/13/17 09/14/17 09/15/17 23:59 23:59 23:59 Intake Total 3408 / 3408 2598 / 2598 735 / 735 Output Total 150 / 150 75 / 75 Balance 3258 / 3258 2523 / 2523 735 / 735 Microbiology Past 72 Hours 09/10/17 10:10 Gram Stain - Final Wound - Leg, Left Wound Culture - Final Citrobacter freundii Bacillus sp., not anthracis Anaerobic Culture - Final No anaerobic bacteria isolated. 09/12/17 Unknown Gram Stain - Final Tissue - Leg, Left Wound Culture - Final Citrobacter freundii Enterococcus faecalis Anaerobic Culture - Preliminary Checking for anaerobes, further studies to follow. Laboratory Tests Past 24 Hrs 09/15/17 09/15/17 05:20 05:20 WBC 5.9 RBC 3.31 L Hgb 9.3 L Hct 29.1 L MCV 87.9 MCH 28.1 MCHC 32.0 RDW 15.5 H RDW Differential 49.8 H Plt Count 311 MPV 9.5 Sodium 137 Potassium 4.4 Chloride 105 Carbon Dioxide 26.0 Anion Gap 6 BUN 12 Creatinine 1.04 Estim Creat Clear Calc 49.02 Est GFR (MDRD) Af Amer 89 Est GFR (MDRD) Non-Af 73 BUN/Creatinine Ratio 11.5 Glucose 117 H Calcium 8.8 Magnesium 2.0 POC Glucose 09/15/17 09/14/17 09/14/17 06:18 21:12 18:11 POC Glucose 117 H 111 H 148 H 09/14/17 11:44 POC Glucose 116 H Medical Necessity - Tobacco Use Smoking Status: Never smoker Route of nutrition/ use of supplements: [] Nutritional Intake: [] IV Site: [] León Catheter: [] - Assessment/Plan Antibiotics: [] Assessment/Plan: [] Active and Suspected Problems Cellulitis of left leg (Acute) L cota infected wound with surrounding cellulitis - cx neg so far. Wound worsened after admission, taken to OR 09/[address] Chin. Surg cx with GNR as well as rare enterococcus. Wound cx with citrobacter, bacillus. Will narrow abx to po cipro/augmentin. Plan on 7 more days po abx at discharge. Dr. Hinsd to see. Will follow, d/w family caseworker
[2017-09-15 11:35] LABS: Bedside Glucose 105 mg/dL (70-110)
[2017-09-15] MEDS: Amox/Clavulanate 875 MG Tablet PO ×2 (12:09→22:44)
[2017-09-15] MEDS: Ciprofloxacin 500 MG Tablet PO ×2 (12:09→22:44)
--- NOTE | 2017-09-15 14:55 | CHAPLAIN ---
Type of Pastoral Visit _x__ Initial Visit ___ Follow-up Visit ___ On-call Visit ___ General Patient Visit ___ Spiritual Assessment ___ Family Conference ___ Bereavement ___ Rapid Response ___ Code Blue ___ Other (describe below) Pastoral Care Referral From _x__ Patient ___ Family ___ Nurse ___ Physician ___ Paperboard Box Maker ___ Gluer And Wedger ___ Other (describe below) Sacrament/Intervention _x__ Active listening ___ Anointing ___ Methodist ___ Bereavement ___ Communion _x__ Galina exploration ___ _x__ Life review _x__ Prayer ___ Reconciliation ___ Sacrament of Sick _x__ Supportive presence ___ Wedding ___ Other (describe below) Pastoral Comments
[2017-09-15] MEDS: HYDROcodone Bitartrate/Apap 5/325 Tablet PO (16:45)
[2017-09-15] MEDS: Rivaroxaban 20 MG Tablet PO (16:52)
[2017-09-15 17:00] LABS: Bedside Glucose 118 mg/dL (70-110)
[2017-09-15] MEDS: Montelukast 10 MG Tablet PO (22:44)
[2017-09-15] MEDS: Atorvastatin Calcium 10 MG Tablet PO (22:44)
[2017-09-15 22:51] LABS: Bedside Glucose 148 mg/dL (70-110)
[2017-09-16 02:20] VITALS: BP 134/69; PULSE 92; RESP 14; TEMP 36.7; O2SAT 93
[2017-09-16] MEDS: HYDROcodone Bitartrate/Apap 5/325 Tablet PO (02:31)
[2017-09-16] MEDS: metroNIDAZOLE 500 MG Tablet PO ×2 (05:57→14:09)
[2017-09-16] MEDS: Acetaminophen 325 MG Tablet 650 MG PO (06:00)
[2017-09-16] MEDS: 0.9% NaCl Peripheral Flush Adult/Peds IV (06:03)
[2017-09-16 06:45] LABS: Bedside Glucose 131 mg/dL (70-110)
[2017-09-16 07:18] VITALS: PULSE 84; RESP 18
[2017-09-16] MEDS: Ipratropium/Albuterol Sulfate 3 ML AMPUL.NEB INHALATION ×2 (07:18→13:07)
[2017-09-16] MEDS: Budesonide Respules 0.5 MG/2 ML AMPUL.NEB. INHALATION (07:18)
--- NOTE | 2017-09-16 07:56 | PN.SURG_ITS ---
Patient Problems: Active and Suspected Problems Cellulitis of left leg (Acute) Abscess of left leg (Acute) Subjective: Patient is doing well with no complaints. - Physical Exam General: Alert, Oriented x3, Cooperative HEENT: PERRLA Lungs: Normal air movement Cardiovascular: Regular rate, Regular Rhythm Abdomen: Soft, Non Tender, Non-Distended Extremities: - - Left lower extremity is clean dry and intact. Vital Signs Temp Pulse Resp BP Pulse Ox 98.0 F 92 14 134/69 H 93 09/16/17 02:20 09/16/17 02:20 09/16/17 02:20 09/16/17 02:20 09/16/17 02:20 Oxygen Flow Rate (L/min) 2 Oxygen Delivery Method Room Air Weight: 214 lb 11.684 oz Body Mass Index (BMI) 36.3 Intake and Output for Last 24 Hours 09/14/17 09/15/17 09/16/17 23:59 23:59 23:59 Intake Total 2598 / 2598 1992 300 / 300 Output Total 75 / 75 Balance 2523 / 2523 1992 300 / 300 Microbiology Past 72 Hours 09/10/17 10:10 Gram Stain - Final Wound - Leg, Left Wound Culture - Final Citrobacter freundii Bacillus sp., not anthracis Anaerobic Culture - Final No anaerobic bacteria isolated. 09/12/17 Unknown Gram Stain - Final Tissue - Leg, Left Wound Culture - Final Citrobacter freundii Enterococcus faecalis Anaerobic Culture - Preliminary Checking for anaerobes, further studies to follow. POC Glucose 09/16/17 09/15/17 09/15/17 06:41 22:43 16:48 POC Glucose 131 H 148 H 118 H 09/15/17 11:29 POC Glucose 105 Medical Necessity - Tobacco Use Smoking Status: Never smoker Assessment/Plan Active and Suspected Problems Cellulitis of left leg (Acute) Abscess of left leg (Acute) 76-year-old male with left lower extremity infection 1. Patient is doing well. No fevers or chills. 2. I counseled the Dr. Hinds for an opinion on coverage. Wound VAC versus graft. 3. Continue antibiotics per ID. Homero Chin MD Pager: [facility] [address] [place] [address], [address] [place] [address] Office:
[2017-09-16 08:47] VITALS: BP 117/52; PULSE 99; RESP 18; TEMP 36.8; O2SAT 96
[2017-09-16] MEDS: Leflunomide 10 MG TABLET PO (08:58)
[2017-09-16] MEDS: Sertraline 50 MG Tablet 150 MG PO (08:58)
[2017-09-16] MEDS: guaiFENesin 600 MG Tablet PO (08:58)
[2017-09-16] MEDS: Lisinopril 20 MG Tablet PO (08:59)
[2017-09-16] MEDS: Multivitamins,Therapeutic Tablet 1 TABLET PO (08:59)
[2017-09-16] MEDS: Ferrous Sulfate 325 MG Tablet PO (08:59)
[2017-09-16] MEDS: Azelastine HCl NASAL.SRY 2 SPRAY NASAL (09:00)
[2017-09-16] MEDS: Pantoprazole Sodium 20 MG Tablet PO (09:00)
[2017-09-16] MEDS: Amox/Clavulanate 875 MG Tablet PO (09:00)
[2017-09-16] MEDS: Fluticasone 0.05% 1 SPRAY NASAL.SRY 2 SPRAY NASAL (09:02)
[2017-09-16] MEDS: Ciprofloxacin 500 MG Tablet PO (09:02)
[2017-09-16] MEDS: Polyethylene Glycol 3350 17 GM PACKET PO (09:03)
--- NOTE | 2017-09-16 09:31 | CASEMGMT ---
ROSY MEDEL spoke with patient regarding discharge plans. Patient will need wound vac at discharge and [facility] to manage wound vac. Patient agreeable to [facility]. Referral sent to [facility]. ROSY MEDEL will continue to follow this patient and plan for a safe discharge.
--- NOTE | 2017-09-16 10:28 | PN.ID_ITS ---
Patient Problems: Active and Suspected Problems Cellulitis of left leg (Acute) Abscess of left leg (Acute) Subjective: Feeling well, no fever, no n/v/d today - Physical Exam General: Alert, Cooperative Lungs: Clear to auscultation, Normal air movement Cardiovascular: Regular rate, Regular Rhythm Abdomen: Soft, Non Tender, Non-Distended Skin: Ulcer/ Wound - reviewed photo Vital Signs Temp Pulse Resp BP Pulse Ox 98.2 F 99 18 117/52 L 96 09/16/17 08:47 09/16/17 08:47 09/16/17 08:47 09/16/17 08:47 09/16/17 08:47 Oxygen Flow Rate (L/min) 2 Oxygen Delivery Method Room Air Weight: 97.4 kg Body Mass Index (BMI) 36.3 Intake and Output for Last 24 Hours 09/14/17 09/15/17 09/16/17 23:59 23:59 23:59 Intake Total 2598 / 2598 1992 300 / 300 Output Total 75 / 75 Balance 2523 / 2523 1992 300 / 300 Microbiology Past 72 Hours 09/10/17 10:10 Gram Stain - Final Wound - Leg, Left Wound Culture - Final Citrobacter freundii Bacillus sp., not anthracis Anaerobic Culture - Final No anaerobic bacteria isolated. 09/12/17 Unknown Gram Stain - Final Tissue - Leg, Left Wound Culture - Final Citrobacter freundii Enterococcus faecalis Anaerobic Culture - Preliminary Checking for anaerobes, further studies to follow. POC Glucose 09/16/17 09/15/17 09/15/17 06:41 22:43 16:48 POC Glucose 131 H 148 H 118 H 09/15/17 11:29 POC Glucose 105 Medical Necessity - Tobacco Use Smoking Status: Never smoker Route of nutrition/ use of supplements: [] Nutritional Intake: [] IV Site: [] León Catheter: [] - Assessment/Plan Antibiotics: [] Assessment/Plan: [] Active and Suspected Problems Cellulitis of left leg (Acute) L cota infected wound with surrounding cellulitis - cx neg so far. Wound worsened after admission, taken to OR 09/[address] Chin. Surg cx with GNR as well as rare enterococcus. Wound cx with citrobacter, bacillus. Narrowed abx to po cipro/augmentin. Plan on 7 more days po abx at discharge. Dr. Hinds to see. Will follow, d/w special education case manager
--- NOTE | 2017-09-16 10:51 | NURSING ---
In to assess wound to the left cota with Dr Hinds. dressing removed. both feel the wound is ready for a wound VAC. patient is wanting to shower. will apply wound VAC once patient is out of the shower. pt hoping to be able to be discharged home later today if home VAC is approved.
--- NOTE | 2017-09-16 11:00 | PCM.CONS.GEN ---
Reason for Consult Date of Consultation: 09/16/17 Reason for Consultation: Open surgical wound left leg. REFFERING PHYSICIAN: Dr. Chin. SAFETY COUNSELOR: Dr. Hinds. History of Present Illness: The patient is a 76 year old M who sustained a complex wound left leg after falling on a shovel at home on 09/06/17. He went to the ED and had the wound cleansed and suture repaired. He was placed on Keflex. Xray showed no fracture. He cam to the ED a few days later on 09/10/17 because of increasing pain and redness and swelling in his left leg. He was placed on IV antibiotics with Vancomycin and Unasyn. There was also some necrotic skin present in the area of the suture repair. Dr. Chin from General Surgery was consulted and took the patient to the OR on 09/12/17 where he underwent incision and wide debridement of necrotic tissue in the left lower extremity. Wound care was started postop. Cultures showed Citrobacter freundii and Enterococcus faecalis. At present, he is on Cipro and Augmentin. I was asked to evaluate this patient for his large open surgical wound left anterolateral leg for surgical options for treatment as well as for wound care recommendations. Past Medical History Past Medical History (Chronic Problems): Chronic Problems Iron deficiency anemia (Chronic) Pulmonary nodule (Chronic) HLD (hyperlipidemia) (Chronic) Diverticulosis (Chronic) Asthma (Chronic) Hypertension (Chronic) Avulsion of skin (Chronic) Avulsion of skin of hand (Chronic) Obesity (Chronic) Osteoarthritis (Chronic) Penetrating injury right leg (Chronic) Pain in right leg (Chronic) Right leg swelling (Chronic) History of prostate cancer (Chronic) Allergic rhinitis (Chronic) Rheumatoid arthritis (Chronic) Pleural plaque (Chronic) Macular degeneration (Chronic) GERD (gastroesophageal reflux disease) (Chronic) Prostate ca (Chronic) Allergies indomethacin [From Indocin] Allergy (Verified 09/09/17 22:56) Itching indomethacin sodium [From Indocin] Allergy (Verified 09/09/17 22:56) Itching oxycodone HCl [From Percocet] Allergy (Verified 09/09/17 22:56) Itching Current Medications Acetaminophen (Tylenol) 650 mg PO Q6H PRN Hydrocodone Bitart/Acetaminophen ([place] 5mg-325mg) 1 tablet PO Q4H PRN Al Hydroxide/Mg Hydroxide (Mylanta Ii) 30 ml PO Q6H PRN Albuterol/Ipratropium (Duoneb) 3 ml INHALATION Q6HWA.RT SWATHI Amoxicillin/Clavulanate Potassium (Augmentin Tablet) 875 mg PO BID SWATHI Atorvastatin Calcium (Lipitor) 10 mg PO QHS SWATHI Azelastine HCl (Astelin) 2 spray NASAL BID SWATHI Bisacodyl (Dulcolax) 10 mg RECTAL DAILY PRN Budesonide (Pulmicort Aerosol) 0.5 mg INHALATION Q12H.RT SWATHI Ciprofloxacin HCl (Cipro) 500 mg PO BID SWATHI Docusate Sodium (Colace) 200 mg PO BID PRN Ferrous Sulfate (Ferrous Sulfate) 325 mg PO BIDCM SWATHI Fluticasone Propionate (Flonase Nasal [place]) 2 spray NASAL BID SWATHI Glucagon () 1 mg IM .X1 PRN Guaifenesin (Mucinex) 600 mg PO BID SWATHI Ipratropium [place] (Atrovent) 0.5 mg INHALATION 4X/DAY PRN Lactobacillus Acidophilus (Acidophilus) 2 tablet PO TID SWATHI Leflunomide (Leflunomide) 10 mg PO DAILY SWATHI Lisinopril (Zestril) 20 mg PO DAILY SWATHI Metronidazole (Flagyl) 500 mg PO TID SWATHI Montelukast Sodium (Singulair) 10 mg PO QHS [facility] Morphine Sulfate () 1 - 2 mg IV Q4H PRN Multivitamins (Multivitamin) 1 tablet PO DAILYCM [facility] Nutritional Formula (Lactose Free) (Ensure Enlive) 120 ml PO 4X/DAY [facility] Nystatin/Triamcinolone Acetonide (Mycolog) 1 applic TOPICAL BID SWATHI Ondansetron HCl (Zofran) 4 mg IV Q8H PRN Pantoprazole Sodium (Protonix) 20 mg PO DAILY [facility] Polyethylene Glycol (Miralax) 17 gm PO DAILY SWATHI Rivaroxaban (Xarelto) 20 mg PO DINNER SWATHI Sertraline HCl (Zoloft) 150 mg PO DAILY SWATHI Zolpidem Tartrate (Ambien (Generic)) 5 mg PO QHS PRN Home Medications: Ambulatory Orders Medication Instructions Recorded Albuterol Sulfate [Proventil Hfa] 2 puff IH BID 07/13/13 Azelastine HCl [Astelin] 2 spray NASAL BID 07/13/13 Fluticasone 0.05% [Flonase Nasal 2 spray NASAL BID 07/13/13 [place]] Montelukast [Singulair] 10 mg PO QHS 07/13/13 Sertraline HCl [Zoloft] 150 mg PO DAILY 07/13/13 Tiotropium [place] [Spiriva 18 MCG] 1 puff INHALATION DAILY 07/13/13 Atorvastatin Calcium [Lipitor] 10 mg PO QHS 10/26/14 Lisinopril [Zestril] 20 mg PO DAILY 10/26/14 Ferrous Sulfate 325 mg PO BID 07/14/15 Multivitamin [Daily Multiple 1 each PO DAILY 07/14/15 Vitamin] Omeprazole [Prilosec] 20 mg PO DAILY 07/14/15 Polyethylene Glycol 3350 [Miralax] 17 gm PO DAILY PRN 07/14/15 Ipratropium [Atrovent] 0.5 mg INHALATION 4X/DAY PRN 09/03/16 Guaifenesin [Mucinex] 600 mg PO BID 01/12/17 Rivaroxaban [Xarelto] 20 mg PO DAILY 01/31/17 Fluticasone/Salmeterol [Advair Hfa 2 puff INHALATION BID 06/22/17 230-21 Mcg Inhaler] Nystatin/Triamcin Cream [Mycolog] 1 applic TOPICAL BID PRN 06/22/17 Amox/Clavulanate Tablet [Augmentin 875 mg PO BID #14 tab 09/16/17 Tablet] Ciprofloxacin [Cipro] 500 mg PO BID #14 tab 09/16/17 Glucagon 1 mg IM .X1 PRN syringe 09/16/17 Hydrocodone Bitart/Apap 5-325 1 tab PO Q4H PRN PRN #20 tab 09/16/17 [Gy[place] 5/325] Lactobacillus Acidophilus 2 tab PO TID #30 tab 09/16/17 [Acidophilus] Leflunomide 10 mg PO DAILY tablet 09/16/17 Surgical History: - - Umbilical hernia repair, appendectomy, bilateral carpal tunnel surgery, Prostatectomy, Cataract surgery, L lens implant, L knee surgery followed by LTKR, L shoulder surgery, left total hip replacement. Smoking Status: Never smoker - *Family History Sibling History Items: Diabetes, Renal Disease, - - Patient's father at the age of 76 with history of colon cancer myocardial infarction. Patient's mother at age of 86 with a history of breast cancer. Maternal History Items: Cancer Paternal History Items: Cancer Review of Systems Comment: Constitutional: Denies: Chills, Fever, Weight Change. HEENT: Denies: Head Aches, Sinus Congestion, Sinus Drainage. Cardiovascular: Denies: Chest Pain, Palpitations. Respiratory: Denies: Cough, Shortness of breath at rest, Sputum production. Gastrointestinal: Denies: Abdominal Pain, Nausea, Vomiting. Genitourinary: Denies: Dysuria. Musculoskeletal: Reports: Leg Pain, Muscle pain. Denies: Joint Pain, Joint Tenderness. Skin: Reports: Wounds - Large wound as described. Denies: Rash. Neurological: Denies: Numbness, Tingling, Focal weakness. Psychiatric: Denies: Anxiety, Depression, Homicidal Ideations, Suicidal Ideations. Hematologic/ Lymphatic: Reports: Easy Bruising. Denies: Easy Bleeding - Physical Exam Physical Exam General: Alert, Oriented x3, Cooperative Oral: Moist Mucosa Neck: Supple and nontender. No cervical adenopathy. Lungs: Clear to auscultation. Cardiovascular: Regular rate, Regular Rhythm Abdomen: Soft, Non-Distended Extremities: - - Left anterolateral leg shows a large open surgical wound after recent incision and drainage and excisional debridement. Measures 25 x 8 x 1.2 cm. Some undermining laterally about 3 cm. The wound is clean. Muscle and fascia at base appear viable. Mild swelling present. No inguinal adenopathy. Toes are warm. Patient is able to put weight on the left leg. Skin: No rashes Neurological: Cranial nerves II-XII grossly intact Psych/Mental Status: Normal Affect, Appropriate Vital Signs Temp Pulse Resp BP Pulse Ox 98.2 F 99 18 117/52 L 96 09/16/17 08:47 09/16/17 08:47 09/16/17 08:47 09/16/17 08:47 09/16/17 08:47 Oxygen Flow Rate (L/min) 2 Oxygen Delivery Method Room Air Weight: 214 lb 11.684 oz Body Mass Index (BMI) 36.3 Intake and Output for Last 24 Hours 09/14/17 09/15/17 09/16/17 23:59 23:59 23:59 Intake Total 2598 / 2598 1992 300 / 300 Output Total 75 / 75 Balance 2523 / 2523 1992 300 / 300 Microbiology Past 72 Hours 09/10/17 10:10 Gram Stain - Final Wound - Leg, Left Wound Culture - Final Citrobacter freundii Bacillus sp., not anthracis Anaerobic Culture - Final No anaerobic bacteria isolated. 09/12/17 Unknown Gram Stain - Final Tissue - Leg, Left Wound Culture - Final Citrobacter freundii Enterococcus faecalis Anaerobic Culture - Preliminary Checking for anaerobes, further studies to follow. POC Glucose 09/16/17 09/15/17 09/15/17 06:41 22:43 16:48 POC Glucose 131 H 148 H 118 H 09/15/17 11:29 POC Glucose 105 Assessment/Plan 1. Large open surgical wound left anterolateral leg. 2. s/p incision and drainage and excisional debridement by Dr. Chin on 09/12/17. Continue antibiotic therapy for the wound cultures that show Citrobacter freundii and Enterococcus faecalis with Cipro and Augmentin. The wound is clean and is showing signs of healing. The VAC can be placed at this time to help the healing process. Would also recommend an SAMANTHA wrap for compression to minimize swelling. Anticipate increased metabolic demands from the large wound. Encourage nutritional supplementation with protein to help the healing process. Recommend a Prealbumin level. After discharge can followup at the Wound Center in 2 weeks. Would continue the Cipro and Augmentin until the patient is seen at the Wound Center to reassess the wound to determine if additional antibiotics are needed. If there is a plateau in the healing process, can proceed with delayed closure with skin grafting. Code Visit Inpatient E&M: 55909 Init Hosp L2 - ICD-10 - S81.802A, L02.416, L03.116
[2017-09-16 11:41] LABS: Bedside Glucose 93 mg/dL (70-110)
--- NOTE | 2017-09-16 12:28 | PCM.DC ---
- Discharge Diagnoses Current Active Problems: Current Active and Chronic Problems Cellulitis of left leg (Acute) Abscess of left leg (Acute) You will use the following diet at home:: Regular Discharge Activity: Return to Normal Activity Allergies/Adverse Reactions: Allergies indomethacin [From Indocin] Allergy (Verified 09/09/17 22:56) Itching indomethacin sodium [From Indocin] Allergy (Verified 09/09/17 22:56) Itching oxycodone HCl [From Percocet] Allergy (Verified 09/09/17 22:56) Itching Medications to take at Discharge Albuterol Sulfate [Proventil Hfa] 2 puff IH BID 07/13/13 Azelastine HCl [Astelin] 2 spray NASAL BID 07/13/13 Fluticasone 0.05% [Flonase Nasal [place]] 2 spray NASAL BID 07/13/13 Montelukast [Singulair] 10 mg PO QHS 07/13/13 Sertraline HCl [Zoloft] 150 mg PO DAILY 07/13/13 Tiotropium [place] [Spiriva 18 MCG] 1 puff INHALATION DAILY 07/13/13 Atorvastatin Calcium [Lipitor] 10 mg PO QHS 10/26/14 Lisinopril [Zestril] 20 mg PO DAILY 10/26/14 Ferrous Sulfate 325 mg PO BID 07/14/15 Multivitamin [Daily Multiple Vitamin] 1 each PO DAILY 07/14/15 Omeprazole [Prilosec] 20 mg PO DAILY 07/14/15 Polyethylene Glycol 3350 [Miralax] 17 gm PO DAILY PRN 07/14/15 Ipratropium [Atrovent] 0.5 mg INHALATION 4X/DAY PRN 09/03/16 Guaifenesin [Mucinex] 600 mg PO BID 01/12/17 Rivaroxaban [Xarelto] 20 mg PO DAILY 01/31/17 Fluticasone/Salmeterol [Advair Hfa 230-21 Mcg Inhaler] 2 puff INHALATION BID 06/22/17 Nystatin/Triamcin Cream [Mycolog] 1 applic TOPICAL BID PRN 06/22/17 Amox/Clavulanate Tablet [Augmentin Tablet] 875 mg PO BID #14 tab 09/16/17 Ciprofloxacin [Cipro] 500 mg PO BID #14 tab 09/16/17 Glucagon 1 mg IM .X1 PRN syringe 09/16/17 Hydrocodone Bitart/Apap 5-325 [[place] 5/325] 1 tab PO Q4H PRN PRN #20 tab 09/16/17 Lactobacillus Acidophilus [Acidophilus] 2 tab PO TID #30 tab 09/16/17 Leflunomide 10 mg PO DAILY tablet 09/16/17 The following prescriptions were given: Hydrocodone Bitart/Apap 5-325 [[place] 5/325] 1 tab PO Q4H PRN PRN #20 tab PRN Reason: Severe Pain (-02/25) Amox/Clavulanate Tablet [Augmentin Tablet] 875 mg PO BID #14 tab Ciprofloxacin [Cipro] 500 mg PO BID #14 tab Lactobacillus Acidophilus [Acidophilus] 2 tab PO TID #30 tab Primary Care Physician: Lambert Larios MD [Primary Care Provider] - In 1 Week Proposed Discharge Date: 09/16/17
--- NOTE | 2017-09-16 12:29 | PCM.DC.SUM ---
Discharge Date and Diagnosis Date of Admission: 09/10/17 Date of Discharge: 09/16/17 - Primary Discharge Diagnosis Active and Suspected Problems Cellulitis of left leg (Acute) Abscess of left leg (Acute) - Secondary Discharge Diagnosis Chronic Problems Iron deficiency anemia (Chronic) Pulmonary nodule (Chronic) HLD (hyperlipidemia) (Chronic) Diverticulosis (Chronic) Asthma (Chronic) Hypertension (Chronic) Avulsion of skin (Chronic) Avulsion of skin of hand (Chronic) Obesity (Chronic) Osteoarthritis (Chronic) Penetrating injury right leg (Chronic) Pain in right leg (Chronic) Right leg swelling (Chronic) History of prostate cancer (Chronic) Allergic rhinitis (Chronic) Rheumatoid arthritis (Chronic) Pleural plaque (Chronic) Macular degeneration (Chronic) GERD (gastroesophageal reflux disease) (Chronic) Prostate ca (Chronic) Hospital Course and Treatment Consultations 09/11/17 09:16 Consult: Onc/Wound/director peoplesoft Routine Comment: Reason for Consult:: left leg wound Operations: - Summary of Care Provided: He is a 76 year old M who presented originally 09/05 after tripping in his barn and cutting his leg on a grain shovel. Shovel was old, had not been used in several years. It caused a large skin avulsion to L cota. He activated the Called EMS and was taken to ED, his wound was sutured, he was given tetanus shotand sent home on Po Keflex. Over next few days, he developed increasing redness, pain clear/yellow drainage. He did came to the emergency room he was given IV Unasyn and then admitted to the hospitalist service was initiated on IV vancomycin and Zosyn. Infectious disease and general surgery were consulted and he underwent wide debridement . Wound vacuum device was later placed. His wound culture grew Citrobacter and bacillus , antibiotics changed to oral Augmentin and his Cipro. The patient will continue these antibiotics for 7 days. He was discharged home in a stable condition with home health care. Discharge Diet: No Restrictions Discharge Activity: Return to Normal Activity Home Medications: Medications to take at Discharge Albuterol Sulfate [Proventil Hfa] 2 puff IH BID 07/13/13 Azelastine HCl [Astelin] 2 spray NASAL BID 07/13/13 Fluticasone 0.05% [Flonase Nasal [place]] 2 spray NASAL BID 07/13/13 Montelukast [Singulair] 10 mg PO QHS 07/13/13 Sertraline HCl [Zoloft] 150 mg PO DAILY 07/13/13 Tiotropium [place] [Spiriva 18 MCG] 1 puff INHALATION DAILY 07/13/13 Atorvastatin Calcium [Lipitor] 10 mg PO QHS 10/26/14 Lisinopril [Zestril] 20 mg PO DAILY 10/26/14 Ferrous Sulfate 325 mg PO BID 07/14/15 Multivitamin [Daily Multiple Vitamin] 1 each PO DAILY 07/14/15 Omeprazole [Prilosec] 20 mg PO DAILY 07/14/15 Polyethylene Glycol 3350 [Miralax] 17 gm PO DAILY PRN 07/14/15 Ipratropium [Atrovent] 0.5 mg INHALATION 4X/DAY PRN 09/03/16 Guaifenesin [Mucinex] 600 mg PO BID 01/12/17 Rivaroxaban [Xarelto] 20 mg PO DAILY 01/31/17 Fluticasone/Salmeterol [Advair Hfa 230-21 Mcg Inhaler] 2 puff INHALATION BID 06/22/17 Nystatin/Triamcin Cream [Mycolog] 1 applic TOPICAL BID PRN 06/22/17 Amox/Clavulanate Tablet [Augmentin Tablet] 875 mg PO BID #14 tab 09/16/17 Ciprofloxacin [Cipro] 500 mg PO BID #14 tab 09/16/17 Glucagon 1 mg IM .X1 PRN syringe 09/16/17 Hydrocodone Bitart/Apap 5-325 [[place] 5/325] 1 tab PO Q4H PRN PRN #20 tab 09/16/17 Lactobacillus Acidophilus [Acidophilus] 2 tab PO TID #30 tab 09/16/17 Leflunomide 10 mg PO DAILY tablet 09/16/17 Following Prescrptions Were Given to Patient: Hydrocodone Bitart/Apap 5-325 [[place] 5/325] 1 tab PO Q4H PRN PRN #20 tab PRN Reason: Severe Pain (6-02/25) Amox/Clavulanate Tablet [Augmentin Tablet] 875 mg PO BID #14 tab Ciprofloxacin [Cipro] 500 mg PO BID #14 tab Lactobacillus Acidophilus [Acidophilus] 2 tab PO TID #30 tab Primary Care Physician: Lambert Larios MD [Primary Care Provider] - In 1 Week Medical Necessity - Tobacco Use Smoking Status: Never smoker Meaningful Use Info Meaningful Use Diagnoses (Choose all that apply): None applicable Code Visit Inpatient E&M: 38158 Disch Hosp
[2017-09-16 13:07] VITALS: PULSE 85; RESP 16; O2SAT 94
--- NOTE | 2017-09-16 15:06 | NURSING ---
Home VAC approved. switched patient over to the home VAC. reviewed alarms, etc. with patient. patient aware how to return the VAC when finished. patient denies questions. patient was incontinent of stool on floor in room. Patient states that the Ensure makes me have to go right away and I couldn't hold it. patient cleaned up and assisted in getting patient dressed to go home. patient called family to pick him up.
[2017-09-16 15:19] VITALS: BP 125/58; PULSE 103; RESP 18; TEMP 36.8; O2SAT 93
--- NOTE | 2017-09-18 15:49 | CASEMGMT ---
ROSY MEDEL Discharge Follow-up Phone Call: SABA: Ace Strata: 4 Call Date: 09/18/17 Discharge Date: 09/16/17 Time of Call: 1545 Duration: 5 Min Admitting Diagnosis: infected leg wound ROSY MEDEL called and followed up with how patient is doing since discharge from hospital. Patient states he is doing well. Patient stated that [facility] has been to visit him and changed wound vac. Patient states he has no questions regarding discharge instructions. Patient had question regarding antibiotics Augmentin and Cipro causing diarrhea. Patient also has script for acidophilus and encourage patients to continue with acidophilus and encouraged to eat yogurt as well. Patient also asked about when to follow up with Dr. Hinds. Per Lizet's progress note should follow-up in wound clinic in 2 weeks. ROSY MEDEL gave patient phone number to wound clinic and patient stated he would call to schedule appt. Patient stated he was very please with staff on [facility].
== END 2017-09-16 15:54 | disposition home health service (06) | DRG 580 ==
LOC: ED 23:15 → MS3 09-10 00:55
PROVIDERS: Anesthesiology; Internal Medicine; Internal Medicine Infectious Disease; Surgery; Admitting Provider Internal Medicine; Emergency Provider Emergency Medicine; Family Provider Internal Medicine; PCP Internal Medicine; Visit Provider Internal Medicine
DX: L02.416 Cutaneous abscess of left lower limb (principal); I96 Gangrene, not elsewhere classified; S81.812A Laceration without foreign body, left lower leg, initial encounter; L03.116 Cellulitis of left lower limb; E66.9 Obesity, unspecified; I10 Essential (primary) hypertension; Z68.36 Body mass index [BMI] 36.0-36.9, adult; Z86.711 Personal history of pulmonary embolism; Z79.02 Long term (current) use of antithrombotics/antiplatelets; B96.89 Other specified bacterial agents as the cause of diseases classified elsewhere; W01.118A Fall on same level from slipping, tripping and stumbling with subsequent striking against other sharp object, initial encounter; Y92.71 Barn as the place of occurrence of the external cause; E78.5 Hyperlipidemia, unspecified; D50.9 Iron deficiency anemia, unspecified; K57.90 Diverticulosis of intestine, part unspecified, without perforation or abscess without bleeding; Z85.46 Personal history of malignant neoplasm of prostate; M06.9 Rheumatoid arthritis, unspecified; K21.9 Gastro-esophageal reflux disease without esophagitis; H35.30 Unspecified macular degeneration
CPT/HCPCS: 36415; 73590; 80048; 80076; 82962; 83036; 83605; 83735; 85025; 85027; 85610; 85652; 85730; 86140; 86850; 86900; 87015; 87040; 87070; 87075; 87077; 87102; 87116; 87186; 87205; 87206; 87640; 87641; 93005; 94640; 97802; 99282; J7030; J7050; A4216; J0295; J0696; J2405

== ENCOUNTER 2017-10-10 10:45 | Outpatient (RCR) | payer MEDICARE, SELFPAY ==
[2017-09-26 13:46] VITALS: BP 139/77; PULSE 139; RESP 18; TEMP 36.4; BMI 36.0
--- NOTE | 2017-09-26 15:28 | HP.PCM_ITS ---
(1) Leg swelling Status: Chronic Current Visit: Yes Code(s): M79.89 - Other specified soft tissue disorders (2) Open wound of left lower leg Status: Acute Current Visit: Yes Qualifiers: Encounter type: initial encounter Qualified Code(s): S81.802A - Unspecified open wound, left lower leg, initial encounter Code(s): S81.802A - Unspecified open wound, left lower leg, initial encounter (3) Traumatic open wound of left lower leg Status: Acute Current Visit: Yes Qualifiers: Encounter type: initial encounter Qualified Code(s): S81.802A - Unspecified open wound, left lower leg, initial encounter Code(s): S81.802A - Unspecified open wound, left lower leg, initial encounter (4) Asthma Status: Chronic Current Visit: No Code(s): J45.909 - Unspecified asthma, uncomplicated (5) Diverticulosis Status: Chronic Current Visit: No Code(s): K57.90 - Diverticulosis of intestine, part unspecified, without perforation or abscess without bleeding (6) GERD (gastroesophageal reflux disease) Status: Chronic Current Visit: No Code(s): K21.9 - Gastro-esophageal reflux disease without esophagitis (7) HLD (hyperlipidemia) Status: Chronic Current Visit: No Code(s): E78.5 - Hyperlipidemia, unspecified (8) History of prostate cancer Status: Chronic Current Visit: No Code(s): Z85.46 - Personal history of malignant neoplasm of prostate (9) Hypertension Status: Chronic Current Visit: No Qualifiers: Code(s): I10 - Essential (primary) hypertension (10) Macular degeneration Status: Chronic Current Visit: No Code(s): H35.30 - Unspecified macular degeneration (11) Obesity Status: Chronic Current Visit: No Code(s): E66.9 - Obesity, unspecified (12) Osteoarthritis Status: Chronic Current Visit: No (13) History of pulmonary embolism Status: Chronic Current Visit: No Code(s): Z86.711 - Personal history of pulmonary embolism History of Present Illness Date of Service: 09/26/17 Chief Complaint: Recent traumatic injury of the left lower extremity with residual open wound History of Wound: This is a 77-year-old male who was in his normal state of health until September 06, 2017, at which time he sustained an injury to the left lateral calf, the result of a shovel which impaled into his left leg. The patient was rushed to the emergency department on that date, where he was treated by means of wound closure using sutures. Four days later, he had developed a cellulitis, and was admitted to the hospital for treatment. Patient was treated with antibiotics, and subsequently underwent wide surgical debridement of necrotic tissue by Dr. Homero Chin on September 12, 2017. Patient was discharged on September 16, 2017. He was discharged on Cipro 500 mg p.o. twice daily and Augmentin 875 mg p.o. twice daily. At the time of discharge, arrangements were made for the wound VAC to be the means of treatment, which has been changed every several days by home health nursing personnel. She presents at this time for further evaluation and management on an outpatient basis. The patient had been on Xarelto and treatment for a pulmonary embolism which was diagnosed in January 2017. As result of his injury, the Xarelto has been discontinued. A noninvasive lower extremity arterial study performed in August 2016 revealed no evidence of arterial occlusive disease in the lower extremities. Therefore, there is no reason to believe there is since of any significant arterial occlusive disease. Review of the patient's recent laboratory studies, while hospitalized, reveal the following: White blood count 5.9, hemoglobin 9.3, hematocrit 29.1, platelets 311,000, sodium 137, potassium 4.4, chloride 105, BUN 12, creatinine 1.04, glucose 117, albumin 2.7, total protein 6.8, calcium 8.8, hemoglobin A1c 7.7, magnesium 2.0, total bilirubin 0.30. Past Medical History Past Medical History: Chronic Problems Leg swelling (Chronic) History of pulmonary embolism (Chronic) Iron deficiency anemia (Chronic) Pulmonary nodule (Chronic) HLD (hyperlipidemia) (Chronic) Diverticulosis (Chronic) Asthma (Chronic) Hypertension (Chronic) Avulsion of skin (Chronic) Avulsion of skin of hand (Chronic) Obesity (Chronic) Osteoarthritis (Chronic) Penetrating injury right leg (Chronic) Pain in right leg (Chronic) Right leg swelling (Chronic) History of prostate cancer (Chronic) Allergic rhinitis (Chronic) Rheumatoid arthritis (Chronic) Pleural plaque (Chronic) Macular degeneration (Chronic) GERD (gastroesophageal reflux disease) (Chronic) Prostate ca (Chronic) Past Medical History: Patient has a history of borderline diabetes mellitus, asthma, hypertension, gastroesophageal reflux disease, and prostate cancer. His history is negative for cerebrovascular accident, myocardial infarction, congestive heart failure, and renal disease. He also has a history of lipidemia , diverticulosis, and macular degeneration. The patient was diagnosed with a pulmonary embolism in January 2017. Surgical History: - - Umbilical hernia repair, appendectomy, bilateral carpal tunnel surgery, Prostatectomy, Cataract surgery, L lens implant, L knee surgery followed by LTKR, L shoulder surgery, left total hip replacement. Allergies/Adverse Reactions: Allergies indomethacin [From Indocin] Allergy (Verified 09/09/17 22:56) Itching indomethacin sodium [From Indocin] Allergy (Verified 09/09/17 22:56) Itching oxycodone HCl [From Percocet] Allergy (Verified 09/09/17 22:56) Itching Home Medications: Ambulatory Orders Medication Instructions Recorded Albuterol Sulfate [Proventil Hfa] 2 puff IH BID 07/13/13 Azelastine HCl [Astelin] 2 spray NASAL BID 07/13/13 Fluticasone 0.05% [Flonase Nasal 2 spray NASAL BID 07/13/13 Joseph] Montelukast [Singulair] 10 mg PO QHS 07/13/13 Sertraline HCl [Zoloft] 150 mg PO DAILY 07/13/13 Tiotropium [place] [Spiriva 18 MCG] 1 puff INHALATION DAILY 07/13/13 Atorvastatin Calcium [Lipitor] 10 mg PO QHS 10/26/14 Lisinopril [Zestril] 20 mg PO DAILY 10/26/14 Ferrous Sulfate 325 mg PO BID 07/14/15 Multivitamin [Daily Multiple 1 each PO DAILY 07/14/15 Vitamin] Omeprazole [Prilosec] 20 mg PO DAILY 07/14/15 Polyethylene Glycol 3350 [Miralax] 17 gm PO DAILY PRN 07/14/15 Ipratropium [Atrovent] 0.5 mg INHALATION 4X/DAY PRN 09/03/16 Guaifenesin [Mucinex] 600 mg PO BID 01/12/17 Rivaroxaban [Xarelto] 20 mg PO DAILY 01/31/17 Fluticasone/Salmeterol [Advair Hfa 2 puff INHALATION BID 06/22/17 230-21 Mcg Inhaler] Nystatin/Triamcin Cream [Mycolog] 1 applic TOPICAL BID PRN 06/22/17 Amox/Clavulanate Tablet [Augmentin 875 mg PO BID #14 tab 09/16/17 Tablet] Ciprofloxacin [Cipro] 500 mg PO BID #14 tab 09/16/17 Glucagon 1 mg IM .X1 PRN syringe 09/16/17 Hydrocodone Bitart/Apap 5-325 1 tab PO Q4H PRN PRN #20 tab 09/16/17 [[place] 5/325] Lactobacillus Acidophilus 2 tab PO TID #30 tab 09/16/17 [Acidophilus] Leflunomide 10 mg PO DAILY tablet 09/16/17 - Family History Sibling Diabetes, Renal Disease, - - Patient's father at the age of 76 with history of colon cancer myocardial infarction. Patient's mother at age of 86 with a history of breast cancer. Maternal Cancer Paternal Cancer Lives: Spouse/ Significant Other Smoking Status: Never smoker Tobacco Use: Non-smoker Alcohol: Occasional Drugs: None Review of Systems Constitutional: Denies: Chills, Fever, Weight Change Eyes: Denies: Pain, Vision Change HEENT: Denies: Difficulty Hearing, Difficulty Swallowing, Sinus Congestion Cardiovascular: Denies: Chest Pain, Palpitations Respiratory: Denies: Cough, Shortness of Breath Gastrointestinal: Denies: Diarrhea, Nausea, Vomiting Genitourinary: Denies: Dysuria, Hematuria Endocrine: Denies: Heat/ Cold Intolerance, Polydipsia, Polyuria Hematologic/ Lymphatic: Denies: Easy Bruising, Easy Bleeding - Physical Exam Vital Signs Temp Pulse Resp BP 97.6 F L 139 H 18 139/77 H 09/26/17 13:46 09/26/17 13:46 09/26/17 13:46 09/26/17 13:46 General: Alert, Oriented x3, Cooperative, No apparent distress, Well developed, Well nourished HEENT: Atraumatic, PERRLA, EOMI, Normocephalic Oral: Moist Mucosa Neck: Supple, No JVD, Negative Carotid Bruits, Negative Hepatojugular Reflux, No Nodes, No Nuchal Rigidity, Trachea Midline Lungs: Clear to auscultation, Normal air movement, No rhonchi, No wheeze, No rales Cardiovascular: Regular rate, Regular Rhythm, Normal S1, Normal S2, No murmurs Abdomen: Soft, Non Tender, Non-Distended, Obese, - - Rectus diastasis is noted Extremities: No clubbing, No cyanosis, No Calf Tenderness, - - Slight bilateral lower extremity edema is noted. A large traumatic wound is noted on the left lateral calf. Dimensions are documented elsewhere. There is no sign of infection or cellulitis. The wound is generally healthy in appearance. Skin: No rashes Wound Measurements and Assessment WC - Nurse 1 - General Ulcer Measurement Start: 09/26/17 13:39 Freq: Status: Active Protocol: Activity Type Activity Date Activity User E-Sign Co-Sign Detail Recorded Client Recorded Date Recorded By Document 09/26/17 13:46 DV [id number] 09/26/17 14:27 DV 09/26/17 13:46 Wound Center Nurse 1 [Ulcer Assessment] #7 LATERAL LLE- POST OP 09/12/17 -Combined with other wound No -Current Size (cm) - Length 23.0 -Current Size (cm) - Width 8.7 -Current Size (cm) - Depth 1.0 -Total Square Cm 200.10 -Date of Last Picture (Recall this 09/26/17 field) -Photo Taken Yes -Epithelialization None Present -Tunneling No -Undermining/Tunneling No -Circular Undermining No -Exudate Amt Medium (34-66%) -Exudate Type Yellow/Green -Wound Margin Distinct, Outline Attached -Granulation Amt Medium (34-66%) -Granulation Quality [place] -Slough/Fibrin Yes -Necrosis Amt Medium (34-66%) -Necrotic Tissue Type Adherent Slough -Structure Exposed Fat Layer Exposed -Texture (Karin-wound Skin Appearance) Scarring -Moisture (Karin-wound Skin Appearance Maceration ) -Color (Karin-wound Skin Appearance) Erythema -Temperature (Karin-wound Skin No Abnormality Appearance) (Pt Warm) -Tenderness on Palpation (Karin-wound No Skin Appearance) -Ulcer Cleansing Wound Cleanser -Foul Odor after Cleansing No -Anesthetic Used 4% Lidocaine Solution - Nurse 2 - General Ulcer CM Notes Start: 09/26/17 13:39 Freq: Status: Active Protocol: Activity Type Activity Date Activity User E-Sign Co-Sign Detail Recorded Client Recorded Date Recorded By Document 09/26/17 14:48 [email or web address] [id number] 09/26/17 14:59 JS 09/26/17 14:48 Wound Center Nurse 2 [Procedure/Treatment] -Time 14:48 -Correct Patient Yes -Correct Side, Site, Position Yes -Correct Procedure Yes -Procedure Performed Yes -Type of Procedure Debridement -Clinical Debridement Subcutaneous -Post Debridement Size (cm) - Length 24.0 -Post Debridement Size (cm) - Width 11.0 -Post Debridement Size (cm) - Depth 0.4 -Total Square Cm 264.00 -Wound/Ulcer Outcome Not Healed -Ulcer Cleansing Rinsed/ Irrigated with Saline -Foul Odor after Cleansing No -Bioengineered Tissue No -Topical Lidocaine (%) 4 -Lidocaine (ml) 5 -Bleeding Controlled with NA -Treatment Response Procedure Tolerated Well [See Physician Procedure note for Specifics] Pain Scale: 0-10 Numeric [Pain] -Is Patient Pain Free? Yes Neurological: Cranial nerves II-XII grossly intact, Neuro grossly intact Psych/Mental Status: Normal Affect, Appropriate, Alert and oriented to time, place, person, mood and affect Debridement Note Post-Debridement Measurements/Treatment WC - Nurse 2 - General Ulcer CM Notes Start: 09/26/17 13:39 Freq: Status: Active Protocol: Activity Type Activity Date Activity User E-Sign Co-Sign Detail Recorded Client Recorded Date Recorded By Document 09/26/17 14:48 [id number] 09/26/17 14:59 JODI 09/26/17 14:48 Wound Center Nurse 2 #7 LATERAL LLE- POST OP 09/12/17 -Time 14:48 -Correct Patient Yes -Correct Side, Site, Position Yes -Correct Procedure Yes -Procedure Performed Yes -Type of Procedure Debridement -Clinical Debridement Subcutaneous -Post Debridement Size (cm) - Length 24.0 -Post Debridement Size (cm) - Width 11.0 -Post Debridement Size (cm) - Depth 0.4 -Total Square Cm 264.00 -Wound/Ulcer Outcome Not Healed -Ulcer Cleansing Rinsed/ Irrigated with Saline -Foul Odor after Cleansing No -Bioengineered Tissue No -Topical Lidocaine (%) 4 -Lidocaine (ml) 5 -Bleeding Controlled with NA -Treatment Response Procedure Tolerated Well Pain Scale: 0-10 Numeric Is Patient Pain Free? Yes Laterality: Left - Lateral calf Type of Debridement: Excisional debridement Anesthesia Used: 4% Lidocaine Solution Depth: Down to and including healthy tissue, in the subcutaneous layer Percentage of wound debrided: 100 Instrument Used: 5mm curette Severity: Fat Layer Exposed Amount of bleeding with debridement: Mild Bleeding Controlled with: Compression and gauze Patient tolerated procedure well Assessment/Plan Active Problems Leg swelling (Chronic) Traumatic open wound of left lower leg (Acute) Open wound of left lower leg (Acute) Assessment: This is a 77-year-old male with a recent traumatic injury to the left lateral calf. At this time, the traumatic wound appears generally healthy , without evidence of infection. Plan: Current measures are to be continued. Wound VAC will be continued, with change of the wound VAC every several days, with assistance of home health nursing personnel. Patient will return in approximately 1 week for reassessment. Intake of a well-balanced and nutritious diet has been advised. Patient has been advised to elevate his lower extremities, to minimize swelling and edema. He is to continue the antibiotics which have been previously prescribed. The patient is not a smoker. Influenza vaccine was not administered today. Patient stands 5 feet 4 inches tall. He weighs 210 pounds. His BMI is 36.0, which places him in a class II category. Weight loss has been recommended, with collaboration with his primary care physician in this regard.
[2017-10-03 14:25] VITALS: BP 103/64; RESP 20; TEMP 36.3; BMI 36.0
--- NOTE | 2017-10-06 10:28 | HP.PCM_ITS ---
(1) Open wound of left lower leg Status: Acute Current Visit: Yes Qualifiers: Encounter type: initial encounter Qualified Code(s): S81.802A - Unspecified open wound, left lower leg, initial encounter Code(s): S81.802A - Unspecified open wound, left lower leg, initial encounter (2) Traumatic open wound of left lower leg Status: Acute Current Visit: Yes Qualifiers: Encounter type: initial encounter Qualified Code(s): S81.802A - Unspecified open wound, left lower leg, initial encounter Code(s): S81.802A - Unspecified open wound, left lower leg, initial encounter (3) Leg swelling Status: Acute Current Visit: Yes Code(s): M79.89 - Other specified soft tissue disorders (4) Avulsion of skin of right lower leg Status: Acute Current Visit: Yes Qualifiers: Encounter type: initial encounter Qualified Code(s): S81.801A - Unspecified open wound, right lower leg, initial encounter Code(s): S81.801A - Unspecified open wound, right lower leg, initial encounter (5) Open wound Status: Acute Current Visit: Yes Code(s): T14.8 - Other injury of unspecified body region History of Present Illness Date of Service: 10/03/17 Chief Complaint: Recent traumatic injury of the left lower extremity with residual open wound History of Wound: This is a 77-year-old male who was in his normal state of health until September 06, 2017, at which time he sustained an injury to the left lateral calf, the result of a shovel which impaled into his left leg. The patient was rushed to the emergency department on that date, where he was treated by means of wound closure using sutures. Four days later, he had developed a cellulitis, and was admitted to the hospital for treatment. Patient was treated with antibiotics, and subsequently underwent wide surgical debridement of necrotic tissue by Dr. Homero Chin on September 12, 2017. Patient was discharged on September 16, 2017. He was discharged on Cipro 500 mg p.o. twice daily and Augmentin 875 mg p.o. twice daily. At the time of discharge, arrangements were made for the wound VAC to be the means of treatment, which has been changed every several days by home health nursing personnel. She presents at this time for further evaluation and management on an outpatient basis. The patient had been on Xarelto and treatment for a pulmonary embolism which was diagnosed in January 2017. As result of his injury, the Xarelto has been discontinued. A noninvasive lower extremity arterial study performed in August 2016 revealed no evidence of arterial occlusive disease in the lower extremities. Therefore, there is no reason to believe there is since of any significant arterial occlusive disease. Review of the patient's recent laboratory studies, while hospitalized, reveal the following: White blood count 5.9, hemoglobin 9.3, hematocrit 29.1, platelets 311,000, sodium 137, potassium 4.4, chloride 105, BUN 12, creatinine 1.04, glucose 117, albumin 2.7, total protein 6.8, calcium 8.8, hemoglobin A1c 7.7, magnesium 2.0, total bilirubin 0.30. Past Medical History Past Medical History: Chronic Problems History of pulmonary embolism (Chronic) Iron deficiency anemia (Chronic) Pulmonary nodule (Chronic) HLD (hyperlipidemia) (Chronic) Diverticulosis (Chronic) Asthma (Chronic) Hypertension (Chronic) Avulsion of skin (Chronic) Avulsion of skin of hand (Chronic) Obesity (Chronic) Osteoarthritis (Chronic) Penetrating injury right leg (Chronic) Pain in right leg (Chronic) Right leg swelling (Chronic) History of prostate cancer (Chronic) Allergic rhinitis (Chronic) Rheumatoid arthritis (Chronic) Pleural plaque (Chronic) Macular degeneration (Chronic) GERD (gastroesophageal reflux disease) (Chronic) Prostate ca (Chronic) Surgical History: - - Umbilical hernia repair, appendectomy, bilateral carpal tunnel surgery, Prostatectomy, Cataract surgery, L lens implant, L knee surgery followed by LTKR, L shoulder surgery, left total hip replacement. Allergies/Adverse Reactions: Allergies indomethacin [From Indocin] Allergy (Verified 09/09/17 22:56) Itching indomethacin sodium [From Indocin] Allergy (Verified 09/09/17 22:56) Itching oxycodone HCl [From Percocet] Allergy (Verified 09/09/17 22:56) Itching Home Medications: Ambulatory Orders Medication Instructions Recorded Albuterol Sulfate [Proventil Hfa] 2 puff IH BID 07/13/13 Azelastine HCl [Astelin] 2 spray NASAL BID 07/13/13 Fluticasone 0.05% [Flonase Nasal 2 spray NASAL BID 07/13/13 [place]] Montelukast [Singulair] 10 mg PO QHS 02/25/14 Sertraline HCl [Zoloft] 150 mg PO DAILY 07/13/13 Tiotropium [place] [Spiriva 18 MCG] 1 puff INHALATION DAILY 07/13/13 Atorvastatin Calcium [Lipitor] 10 mg PO QHS 10/26/14 Lisinopril [Zestril] 20 mg PO DAILY 10/26/14 Ferrous Sulfate 325 mg PO BID 07/14/15 Multivitamin [Daily Multiple 1 each PO DAILY 07/14/15 Vitamin] Omeprazole [Prilosec] 20 mg PO DAILY 07/14/15 Polyethylene Glycol 3350 [Miralax] 17 gm PO DAILY PRN 07/14/15 Ipratropium [Atrovent] 0.5 mg INHALATION 4X/DAY PRN 09/03/16 Guaifenesin [Mucinex] 600 mg PO BID 01/12/17 Rivaroxaban [Xarelto] 20 mg PO DAILY 01/31/17 Fluticasone/Salmeterol [Advair Hfa 2 puff INHALATION BID 06/22/17 230-21 Mcg Inhaler] Nystatin/Triamcin Cream [Mycolog] 1 applic TOPICAL BID PRN 06/22/17 Amox/Clavulanate Tablet [Augmentin 875 mg PO BID #14 tab 09/16/17 Tablet] Ciprofloxacin [Cipro] 500 mg PO BID #14 tab 09/16/17 Glucagon 1 mg IM .X1 PRN syringe 09/16/17 Hydrocodone Bitart/Apap 5-325 1 tab PO Q4H PRN PRN #20 tab 09/16/17 [[place] 5/325] Lactobacillus Acidophilus 2 tab PO TID #30 tab 09/16/17 [Acidophilus] Leflunomide 10 mg PO DAILY tablet 09/16/17 - Family History Sibling Diabetes, Renal Disease, - - Patient's father at the age of 76 with history of colon cancer myocardial infarction. Patient's mother at age of 86 with a history of breast cancer. Maternal Cancer Paternal Cancer Lives: Spouse/ Significant Other Smoking Status: Never smoker Tobacco Use: Non-smoker Alcohol: Occasional Drugs: None Review of Systems Constitutional: Denies: Chills, Fever Eyes: Denies: Blurred vision, Drainage, Pain HEENT: Denies: Difficulty Hearing, Difficulty Swallowing, Sore Throat, Visual Changes Cardiovascular: Denies: Chest Pain, Palpitations, Syncope Respiratory: Denies: Cough, Shortness of Breath Gastrointestinal: Denies: Abdominal Pain, Nausea, Vomiting Genitourinary: Denies: Dysuria, Frequency Musculoskeletal: Denies: Joint Pain, Muscle pain Skin: Reports: Wounds - L lat calf. Denies: Jaundice, Rash Neurological: Denies: Balance problems, Change in Speech, Difficulty swallowing , Focal weakness Psychiatric: Denies: Anxiety, Depression Endocrine: Denies: Change in Body Habitus Hematologic/ Lymphatic: Denies: Adenopathy - Physical Exam Vital Signs Temp Pulse Resp BP 97.4 F L 139 H 20 H 103/64 10/03/17 14:25 09/26/17 13:46 10/03/17 14:25 10/03/17 14:25 General: Oriented x3, Cooperative, Well developed HEENT: Atraumatic, PERRLA Oral: Moist Mucosa Neck: Supple, No JVD Lungs: Clear to auscultation, Normal air movement Cardiovascular: Regular rate, Regular Rhythm Abdomen: Bowel Sounds Present, Soft, Non Tender, No Hepato-splenomegaly Extremities: No clubbing, No edema, Edema Skin: No rashes, Ulcer/ Wound - L lat calf avulsion laceration Wound Measurements and Assessment WC - Nurse 1 - General Ulcer Measurement Start: 09/26/17 13:39 Freq: Status: Active Protocol: Activity Type Activity Date Activity User E-Sign Co-Sign Detail Recorded Client Recorded Date Recorded By Document 10/03/17 14:25 [id number] 10/03/17 14:43 10/03/17 14:25 Wound Center Nurse 1 [Ulcer Assessment] #7 LATERAL LLE- POST OP 09/12/17 -Combined with other wound No -Current Size (cm) - Length 23.4 -Current Size (cm) - Width 11.5 -Current Size (cm) - Depth 0.5 -Total Square Cm 269.10 -Date of Last Picture (Recall this 09/26/17 field) -Photo Taken No -Epithelialization None Present -Tunneling No -Undermining/Tunneling No -Circular Undermining No -Classification - Thickness Full Thickness without Exposed Support Structure -Change in Wound Grade/Stage No Query Text:If change please identify the Stage/Grade in the comment (ie. S2 G3) -Exudate Amt Small (1-33%) -Exudate Type Serosanguineous -Wound Margin Distinct, Outline Attached -Granulation Amt Medium (34-66%) -Granulation Quality Pale [place] -Slough/Fibrin Yes -Necrosis Amt None Present (0 %) -Necrotic Tissue Type Adherent Slough -Structure Exposed Fat Layer Exposed -Texture (Karin-wound Skin Appearance) No Abnormality -Moisture (Karin-wound Skin Appearance No Abnormality ) -Color (Karin-wound Skin Appearance) No Abnormality -Temperature (Karin-wound Skin No Abnormality Appearance) (Pt Warm) -Tenderness on Palpation (Karin-wound No Skin Appearance) -Ulcer Cleansing Rinsed/ Irrigated with Saline -Foul Odor after Cleansing No -Anesthetic Used 4% Lidocaine Solution [Edema Assessment] -Right Calf (cm) 38.5 -Right Ankle (cm) 28.0 WC - Nurse 2 - General Ulcer CM Notes Start: 09/26/17 13:39 Freq: Status: Active Protocol: Activity Type Activity Date Activity User E-Sign Co-Sign Detail Recorded Client Recorded Date Recorded By Document 10/03/17 15:30 [id number] 10/03/17 15:33 JODI 10/03/17 15:30 Wound Center Nurse 2 [Procedure/Treatment] #7 LATERAL LLE- POST OP 09/12/17 -Time 15:31 -Correct Patient Yes -Correct Side, Site, Position Yes -Correct Procedure Yes -Procedure Performed Yes -Type of Procedure Debridement -Clinical Debridement Subcutaneous -Post Debridement Size (cm) - Length 24.2 -Post Debridement Size (cm) - Width 5.0 -Post Debridement Size (cm) - Depth 0.3 -Total Square Cm 121.00 -Wound/Ulcer Outcome Not Healed -Ulcer Cleansing Rinsed/ Irrigated with Saline -Foul Odor after Cleansing No -Bioengineered Tissue No -Topical Lidocaine (%) 4 -Lidocaine (ml) 20 -Bleeding Controlled with NA -Treatment Response Procedure Tolerated Well [See Physician Procedure note for Specifics] Pain Scale: 0-10 Numeric [Pain] -Is Patient Pain Free? Yes Musculoskeletal: No Tenderness to Palpation of Joints or Extremities Lymphatic: No Cervical, Supraclavicular, or Inguinal Adenopathy Neurological: Cranial nerves II-XII grossly intact, Neuro grossly intact Psych/Mental Status: Normal Affect, Appropriate Debridement Note Post-Debridement Measurements/Treatment WC - Nurse 2 - General Ulcer CM Notes Start: 09/26/17 13:39 Freq: Status: Active Protocol: Activity Type Activity Date Activity User E-Sign Co-Sign Detail Recorded Client Recorded Date Recorded By Document 09/26/17 14:48 [id number] 09/26/17 14:59 JS Document 10/03/17 15:30 [id number] 10/03/17 15:33 JS 09/26/17 10/03/17 14:48 15:30 Wound Center Nurse 2 #7 LATERAL LLE- POST OP 09/12/17 -Time 14:48 15:31 -Correct Patient Yes Yes -Correct Side, Site, Position Yes Yes -Correct Procedure Yes Yes -Procedure Performed Yes Yes -Type of Procedure Debridement Debridement -Clinical Debridement Subcutaneous Subcutaneous -Post Debridement Size (cm) - Length 24.0 24.2 -Post Debridement Size (cm) - Width 11.0 5.0 -Post Debridement Size (cm) - Depth 0.4 0.3 -Total Square Cm 264.00 121.00 -Wound/Ulcer Outcome Not Healed Not Healed -Ulcer Cleansing Rinsed/ Rinsed/ Irrigated with Irrigated with Saline Saline -Foul Odor after Cleansing No No -Bioengineered Tissue No No -Topical Lidocaine (%) 4 4 -Lidocaine (ml) 5 20 -Bleeding Controlled with NA NA -Treatment Response Procedure Procedure Tolerated Well Tolerated Well Pain Scale: 0-10 Numeric Is Patient Pain Free? Yes Yes Wound debrided: L lat calf Type of Debridement: Excisional debridement Anesthesia Used: 5% Lidocaine Gel Depth: Down to and including healthy tissue, in the subcutaneous layer Instrument Used: 7mm curette Severity: Limited To Skin Breakdown Amount of bleeding with debridement: Mild Bleeding Controlled with: Compression and gauze Patient tolerated procedure well Assessment/Plan culture and sensitivity open ulcer with anerobes and without Active Problems Leg swelling (Acute) Traumatic open wound of left lower leg (Acute) Open wound of left lower leg (Acute) Open wound (Acute) Avulsion of skin of right lower leg (Acute) Assessment: Traumatic laceration to the L lat leg. blood thinners d/c. ulcer dehisciced. postop ulvcer after debridement Plan: Current measures are to be continued. Wound VAC will be continued, with change of the wound VAC every several days, with assistance of home health nursing personnel. Patient will return in approximately 1 week for reassessment. Intake of a well-balanced and nutritious diet has been advised. Patient has been advised to elevate his lower extremities, to minimize swelling and edema. He is to continue the antibiotics which have been previously prescribed. The patient is not a smoker. Influenza vaccine was not administered today. Patient stands 5 feet 4 inches tall. He weighs 210 pounds. His BMI is 36.0, which places him in a class II category. Weight loss has been recommended, with collaboration with his primary care physician in this regard.
[2017-10-10 11:20] VITALS: BP 135/69; PULSE 111; RESP 18; TEMP 36.6; BMI 36.0
--- NOTE | 2017-10-10 13:01 | PCM.WC.PN ---
(1) Open wound of left lower leg Status: Acute Current Visit: Yes Qualifiers: Encounter type: subsequent encounter Qualified Code(s): S81.802D - Unspecified open wound, left lower leg, subsequent encounter Code(s): S81.802A - Unspecified open wound, left lower leg, initial encounter (2) Traumatic open wound of left lower leg Status: Acute Current Visit: Yes Qualifiers: Encounter type: subsequent encounter Qualified Code(s): S81.802D - Unspecified open wound, left lower leg, subsequent encounter Code(s): S81.802A - Unspecified open wound, left lower leg, initial encounter (3) Leg swelling Status: Acute Current Visit: Yes Code(s): M79.89 - Other specified soft tissue disorders (4) Avulsion of skin of right lower leg Status: Acute Current Visit: Yes Qualifiers: Encounter type: subsequent encounter Qualified Code(s): S81.801D - Unspecified open wound, right lower leg, subsequent encounter Code(s): S81.801A - Unspecified open wound, right lower leg, initial encounter (5) Open wound Status: Acute Current Visit: Yes Code(s): T14.8 - Other injury of unspecified body region Type of Wound Date of Service: 10/10/17 Chief Complaint: Recent traumatic injury of the left lower extremity with residual open wound History of Wound: This is a 77-year-old male who was in his normal state of health until September 06, 2017, at which time he sustained an injury to the left lateral calf, the result of a shovel which impaled into his left leg. The patient was rushed to the emergency department on that date, where he was treated by means of wound closure using sutures. Four days later, he had developed a cellulitis, and was admitted to the hospital for treatment. Patient was treated with antibiotics, and subsequently underwent wide surgical debridement of necrotic tissue by Dr. Homero Chin on September 12, 2017. Patient was discharged on September 16, 2017. He was discharged on Cipro 500 mg p.o. twice daily and Augmentin 875 mg p.o. twice daily. At the time of discharge, arrangements were made for the wound VAC to be the means of treatment, which has been changed every several days by home health nursing personnel. She presents at this time for further evaluation and management on an outpatient basis. The patient had been on Xarelto and treatment for a pulmonary embolism which was diagnosed in January 2017. As result of his injury, the Xarelto has been discontinued. A noninvasive lower extremity arterial study performed in August 2016 revealed no evidence of arterial occlusive disease in the lower extremities. Therefore, there is no reason to believe there is since of any significant arterial occlusive disease. Review of the patient's recent laboratory studies, while hospitalized, reveal the following: White blood count 5.9, hemoglobin 9.3, hematocrit 29.1, platelets 311,000, sodium 137, potassium 4.4, chloride 105, BUN 12, creatinine 1.04, glucose 117, albumin 2.7, total protein 6.8, calcium 8.8, hemoglobin A1c 7.7, magnesium 2.0, total bilirubin 0.30. Progress of Wound: today the wougnd looks beefier and the measurements are slightly smaller on the wound vac. Patientisto folow up with Dr Hinds for possibly a flap. Cultues came back positive and re start on doxycycline . No anerobes noted. Will allso incdrease the wound vac pressure to 150 mmhg - Physical Exam Vital Signs Temp Pulse Resp BP 97.8 F 111 H 18 135/69 H 10/10/17 11:20 10/10/17 11:20 10/10/17 11:20 10/10/17 11:20 General: Oriented x3, Cooperative, Well developed HEENT: Atraumatic, PERRLA Oral: Moist Mucosa Neck: Supple, No JVD Lungs: Clear to auscultation, Normal air movement Cardiovascular: Regular rate, Regular Rhythm Abdomen: Bowel Sounds Present, Soft, Non Tender, No Hepato-splenomegaly Extremities: No clubbing, No edema, - - L lat leg traumatic laceration Skin: Ulcer/ Wound Wound Measurements and Assessment WC - Nurse 1 - General Ulcer Measurement Start: 09/26/17 13:39 Freq: Status: Active Protocol: Activity Type Activity Date Activity User E-Sign Co-Sign Detail Recorded Client Recorded Date Recorded By Document 10/10/17 11:20 [email or web address] [id number] 10/10/17 11:36 JODI 10/10/17 11:20 Wound Center Nurse 1 [Ulcer Assessment] #7 LATERAL LLE- POST OP 09/12/17 -Combined with other wound No -Current Size (cm) - Length 23.3 -Current Size (cm) - Width 4.8 -Current Size (cm) - Depth 0.2 -Total Square Cm 111.84 -Date of Last Picture (Recall this 09/26/17 field) -Epithelialization Small 1-33% -Tunneling No -Undermining/Tunneling No -Circular Undermining No -Classification - Thickness Full Thickness without Exposed Support Structure -Exudate Amt Medium (34-66%) -Exudate Type Serosanguineous -Wound Margin Distinct, Outline Attached -Granulation Amt Large (67-100%) -Granulation Quality Red -Slough/Fibrin Yes -Necrosis Amt None Present (0 %) -Necrotic Tissue Type Adherent Slough -Structure Exposed Fat Layer Exposed -Texture (Karin-wound Skin Appearance) No Abnormality -Moisture (Karin-wound Skin Appearance No Abnormality ) -Color (Karin-wound Skin Appearance) No Abnormality -Temperature (Karin-wound Skin No Abnormality Appearance) (Pt Warm) -Tenderness on Palpation (Karin-wound Yes Skin Appearance) -Ulcer Cleansing Rinsed/ Irrigated with Saline -Foul Odor after Cleansing No -Anesthetic Used 4% Lidocaine Solution [Edema Assessment] -Lower Limb Edema Present Yes -Left Calf (cm) 39.0 -Left Ankle (cm) 23.5 WC - Nurse 2 - General Ulcer CM Notes Start: 09/26/17 13:39 Freq: Status: Active Protocol: Activity Type Activity Date Activity User E-Sign Co-Sign Detail Recorded Client Recorded Date Recorded By Document 10/09/17 15:09 DV [id number] 10/10/17 12:08 DV 10/09/17 15:09 Wound Center Nurse 2 [Procedure/Treatment] #7 LATERAL LLE- POST OP 09/12/17 -Time 12:07 -Correct Patient Yes -Correct Side, Site, Position Yes -Correct Procedure Yes -Procedure Performed Yes -Type of Procedure Debridement -Clinical Debridement Subcutaneous -Post Debridement Size (cm) - Length 23.8 -Post Debridement Size (cm) - Width 5.0 -Post Debridement Size (cm) - Depth 0.2 -Total Square Cm 119.00 -Wound/Ulcer Outcome Not Healed -Ulcer Cleansing Rinsed/ Irrigated with Saline -Foul Odor after Cleansing No -Bioengineered Tissue No -Bleeding Controlled with Pressure -Treatment Response Procedure Tolerated Well [See Physician Procedure note for Specifics] Pain Scale: 0-10 Numeric [Pain] -Is Patient Pain Free? Yes Musculoskeletal: No Tenderness to Palpation of Joints or Extremities Lymphatic: No Cervical, Supraclavicular, or Inguinal Adenopathy Neurological: Cranial nerves II-XII grossly intact, Neuro grossly intact Psych/Mental Status: Normal Affect, Appropriate, Alert and oriented to time, place, person, mood and affect Debridement Note Post-Debridement Measurements/Treatment WC - Nurse 2 - General Ulcer CM Notes Start: 09/26/17 13:39 Freq: Status: Active Protocol: Activity Type Activity Date Activity User E-Sign Co-Sign Detail Recorded Client Recorded Date Recorded By Document 09/26/17 14:48 JS [id number] 09/26/17 14:59 JS Document 10/03/17 15:30 JS [id number] 10/03/17 15:33 JS Document 10/09/17 15:09 DV [id number] 10/10/17 12:08 DV 09/26/17 10/03/17 10/09/17 14:48 15:30 15:09 Wound Center Nurse 2 #7 LATERAL LLE- POST OP 09/12/17 -Time 14:48 15:31 12:07 -Correct Patient Yes Yes Yes -Correct Side, Site, Position Yes Yes Yes -Correct Procedure Yes Yes Yes -Procedure Performed Yes Yes Yes -Type of Procedure Debridement Debridement Debridement -Clinical Debridement Subcutaneous Subcutaneous Subcutaneous -Post Debridement Size (cm) - Length 24.0 24.2 23.8 -Post Debridement Size (cm) - Width 11.0 5.0 5.0 -Post Debridement Size (cm) - Depth 0.4 0.3 0.2 -Total Square Cm 264.00 121.00 119.00 -Wound/Ulcer Outcome Not Healed Not Healed Not Healed -Ulcer Cleansing Rinsed/ Rinsed/ Rinsed/ Irrigated with Irrigated with Irrigated with Saline Saline Saline -Foul Odor after Cleansing No No No -Bioengineered Tissue No No No -Topical Lidocaine (%) 4 4 -Lidocaine (ml) 5 20 -Bleeding Controlled with NA NA Pressure -Treatment Response Procedure Procedure Procedure Tolerated Well Tolerated Well Tolerated Well Pain Scale: 0-10 Numeric Is Patient Pain Free? Yes Yes Yes Wound debrided: Lateral leg Laterality: Left Type of Debridement: Excisional debridement Anesthesia Used: 5% Lidocaine Gel Depth: Down to and including healthy tissue, in the subcutaneous layer, to muscle Instrument Used: 5mm curette Tissue Removed: fibrin Severity: Limited To Skin Breakdown Amount of bleeding with debridement: Moderate Bleeding Controlled with: Compression and gauze Patient tolerated procedure well Assessment/Plan Active Problems Leg swelling (Acute) Traumatic open wound of left lower leg (Acute) Open wound of left lower leg (Acute) Open wound (Acute) Avulsion of skin of right lower leg (Acute) Assessment: Traumatic laceration to the L lat leg. blood thinners d/c. ulcer dehisciced. postop ulvcer after debridement Plan: Current measures are to be continued. Wound VAC will be continued with aan increase of 150 mm hg of pressure, with change of the wound VAC every several days, with assistance of home health nursing personnel. Patient will return in approximately 1 week for reassessment. Eventually Patient will be transfer of care to Dr Hinds. Intake of a well-balanced and nutritious diet has been advised. Patient has been advised to elevate his lower extremities, to minimize swelling and edema. Start the doxycycline antibiotic for 21 days
== END 2017-10-16 23:59 ==
LOC: WC 10:45
PROVIDERS: Family Provider Internal Medicine; PCP Internal Medicine; Visit Provider Nurse Practitioner
DX: S81.812A Laceration without foreign body, left lower leg, initial encounter (principal); W27.8XXA Contact with other nonpowered hand tool, initial encounter; M79.89 Other specified soft tissue disorders; J45.909 Unspecified asthma, uncomplicated; K21.9 Gastro-esophageal reflux disease without esophagitis; E78.5 Hyperlipidemia, unspecified; I10 Essential (primary) hypertension; Z85.46 Personal history of malignant neoplasm of prostate; H35.30 Unspecified macular degeneration; Z86.711 Personal history of pulmonary embolism; M19.90 Unspecified osteoarthritis, unspecified site; Z79.899 Other long term (current) drug therapy
CPT/HCPCS: 11042; 11045; 87070; 87075; 87077; 87186; 87205; 97606

== ENCOUNTER 2017-11-06 14:50 | Inpatient (IN) | payer MEDICARE, SELFPAY ==
[2017-11-06] VITALS (8 sets, daily range): BP systolic 115–156; BP diastolic 64–77; PULSE 85–107; RESP 16–18; TEMP 36.6–38; O2SAT 94–98; BMI 34.1
--- NOTE | 2017-11-06 15:41 | EKG12_ITS ---
Test Reason : WOUND Blood Pressure : / mmHG Vent. Rate : 103 BPM Atrial Rate : 103 BPM P-R Int : 116 ms QRS Dur : 086 ms QT Int : 334 ms P-R-T Axes : 049 055 026 degrees QTc Int : 437 ms Sinus tachycardia Otherwise normal ECG Confirmed by RODRICK CRUZ ([id number]), editor farm journal CHERELLE VILLASEÑOR ([id number]) on 11/10/2017 10:14:56 AM Referred By: PAULINO Confirmed By:RODRICK CRUZ
--- NOTE | 2017-11-06 15:44 | ED.VISSUMM ---
- ER Visit Summary Date of Service: 11/06/17 Chief Complaint: Fever History of Present Illness: The patient is a 77 M fever 102.2 orally today. Mild cough. Patient dealing with left lower extremity infection due to an injury back in August. Currently has a wound VAC. Followed by Dr. Cooper at the wound center. Home health nurse came today, changed to wound VAC, initial temp of 99, total increase to be seen. He went to the wound clinic and was sent here due to redness of the leg. He had a UA at the facility that was negative. Denies any nausea or vomiting. Patient finish antibiotics little over a week ago for infection. Denies any dyspnea or chest pains. Patient taken off Xarelto in August of this year for history of PE. He states he had a nuclear imaging in September that was negative. No medications taken prior to arrival. Physical Examination: Vitals: Temperature 100.4, heart rate 107 General: Alert and oriented ?3, no acute distress HEENT: Normocephalic, atraumatic. Moist mucosa membranes Neck: supple, nontender. Cardiovascular: Regular rate tachycardic and rhythm, no murmurs Respiratory: Normal breath sounds, symmetric, no distress Abdomen: Soft, nontender, nondistended Extremities: Left lower extremity: There is wound VAC left lower lateral leg with surrounding erythema nearly circumferential. There is streaking up the back of the thigh. No swelling. Pulses intact distally. There is no active drainage. Neuro: no focal neurological deficits. Test Results: [] Emergency Department Course and Treatment: EKG: Sinus tachycardia, rate of 103, no ST changes. Isolated T-wave inversion in leads III. White count 9.9. Hemoglobin 11.2. Potassium 4.5. INR 1.1. Lactate 1.5. Blood cultures pending. Chest x-ray: No acute process. Treatment Plan: Patient febrile, tachycardic in the ED. Sepsis protocol initiated. He clinically has worsening left lower extremity cellulitis. He was started on Zosyn. Review of his records from his wound cultures there was no MRSA. He was given Tylenol for his fever. Labs are stable. Chest x-ray reviewed myself was negative. He reported urine in the office at the clinic which was negative and he denies any symptoms. On reevaluation the erythema that was outlined actually past the line. He remains nontoxic, blood pressure stable. I did speak with hospitalist for admission due to worsening recurrent cellulitis. Disposition: Admission Impression: 1. Recurrent left lower extremity cellulitis 2. Fever This note was generated with [employer] dictation software. It may contain incorrect words, spelling, and punctuation that were not noted in review of the chart prior to signing ED Disposition - Plan for ED Patient: Disposition: Acute Care Hospital [facility] Chief Complaint: Wound Diagnosis: Left leg cellulitis, Fever Referrals: Lambert Larios MD [Primary Care Provider] -
--- NOTE | 2017-11-06 15:47 | ED.DCSUM_ITS ---
- ER Visit Summary Date of Service: 11/06/17 Chief Complaint: Fever History of Present Illness: The patient is a 77 M fever 102.2 orally today. Mild cough. Patient dealing with left lower extremity infection due to an injury back in August. Currently has a wound VAC. Followed by Dr. Cooper at the wound center. Home health nurse came today, changed to wound VAC, initial temp of 99, total increase to be seen. He went to the wound clinic and was sent here due to redness of the leg. He had a UA at the facility that was negative. Denies any nausea or vomiting. Patient finish antibiotics little over a week ago for infection. Denies any dyspnea or chest pains. Patient taken off Xarelto in August of this year for history of PE. He states he had a nuclear imaging in September that was negative. No medications taken prior to arrival. Physical Examination: Vitals: Temperature 100.4, heart rate 107 General: Alert and oriented ?3, no acute distress HEENT: Normocephalic, atraumatic. Moist mucosa membranes Neck: supple, nontender. Cardiovascular: Regular rate tachycardic and rhythm, no murmurs Respiratory: Normal breath sounds, symmetric, no distress Abdomen: Soft, nontender, nondistended Extremities: Left lower extremity: There is wound VAC left lower lateral leg with surrounding erythema nearly circumferential. There is streaking up the back of the thigh. No swelling. Pulses intact distally. There is no active drainage. Neuro: no focal neurological deficits. Test Results: [] Emergency Department Course and Treatment: EKG: Sinus tachycardia, rate of 103, no ST changes. Isolated T-wave inversion in leads III. White count 9.9. Hemoglobin 11.2. Potassium 4.5. INR 1.1. Lactate 1.5. Blood cultures pending. Chest x-ray: No acute process. Treatment Plan: Patient febrile, tachycardic in the ED. Sepsis protocol initiated. He clinically has worsening left lower extremity cellulitis. He was started on Zosyn. Review of his records from his wound cultures there was no MRSA. He was given Tylenol for his fever. Labs are stable. Chest x-ray reviewed myself was negative. He reported urine in the office at the clinic which was negative and he denies any symptoms. On reevaluation the erythema that was outlined actually past the line. He remains nontoxic, blood pressure stable. I did speak with hospitalist for admission due to worsening recurrent cellulitis. Disposition: Admission Impression: 1. Recurrent left lower extremity cellulitis 2. Fever This note was generated with [employer] dictation software. It may contain incorrect words, spelling, and punctuation that were not noted in review of the chart prior to signing ED Disposition - Plan for ED Patient: Disposition: Acute Care Hospital [facility] Chief Complaint: Wound Diagnosis: Left leg cellulitis, Fever Referrals: Lambert Larios MD [Primary Care Provider] -
[2017-11-06] MEDS: Acetaminophen 325 MG Tablet 650 MG PO (15:58)
[2017-11-06 16:23] LABS: Absolute Lymphocyte Count 0.66 X10^3/ul (0.83-4.51); Absolute Neutrophil Count 8.2 X10^3/uL (2.0-7.7); Basophil# 0.01 X10^3/uL; Basophil% 0.1 % (0-1); Eosinophil# 0.12 X10^3/uL; Eosinophils% 1.2 % (0-5); Hematocrit 35.1 % (40-54); Hemoglobin 11.2 g/dl (13.0-16.5); Lymphocyte # 0.66 X10^3/ul (4.0); Lymphocyte % 6.7 % (19-41); Mean Corp Hgb Conc 31.9 g/gl (32-36); Mean Corpuscular Hgb 27.9 pg (27.0-32.0); Mean Corpuscular Volume 87.5 fL (80-94); Mean Platelet Vol. 9.9 fl (6.2-12.0); Monocyte# 0.89 X10^3/uL; Neutrophil % 82.6 % (47-70); Platelet Count 236 K/mm3 (150-450); RBC Distribution Width CV 15.3 % (11.6-14.6); RBC Distribution Width SD 48.5 fl (35.1-43.9); Red Blood Count 4.01 M/mm3 (4.6-6.2); White Blood Count 9.9 K/mm3 (4.4-11.0)
[2017-11-06 16:24] LABS: POSITIVE COUNT NO; POSITIVE DIFFERENTIAL NO; POSITIVE MORPHOLOGY NO
[2017-11-06 16:32] LABS: International Normalized Ratio 1.1; Prothrombin Time (Protime)PT. 13.8 SECONDS (11.7-14.9)
[2017-11-06] MEDS: Piperacil/Tazobactam 3.375 GM/50 ML ML IV ×2 (16:32→22:14)
[2017-11-06 16:33] LABS: Partial Thromboplast Time 32.6 Seconds (24.1-36.2)
[2017-11-06 16:50] LABS: ALB/GLOB Ratio 0.7 RATIO (0.9-2.4); AST(SGOT) 23 U/L (15-37); Alanine Aminotransfer ALT/SGPT 24 U/L (16-61); Albumin, Serum 3.4 g/dL (3.2-5.0); Alkaline Phosphatase 91 U/L (45-117); Anion Gap 7 (5-15); BUN 15 mg/dL (7-18); BUN/Creat Ratio 13.2 RATIO (10-20); Calcium,Total 8.9 mg/dL (8.5-10.1); Chloride 104 mmol/L (98-107); Creatinine, Serum 1.14 mg/dL (0.70-1.30); EST Glomerular Filtration Rate 66 mL/min (>60); Est Glom Filt Rate - Afr Amer 80 mL/min (>60); Estimated Creatinine Clearance 45.71 ml/min; Globulin 4.8 g/dL (2.2-4.2); Glucose 110 mg/dL (74-106); Potassium 4.5 mmol/L (3.5-5.1); Protein, Total 8.2 g/dL (6.4-8.2); Sodium Level 135 mmol/L (136-145)
--- NOTE | 2017-11-06 16:51 | CM.ED ---
Addendum entered by Ivone Dasilva 11/06/17 17:02: Re-attempted to speak with patient. Patient out of room for testing. Original Note: Attempted to complete case management initial assessment. Patient is occupied with other caregivers and testing at this time.
[2017-11-06 16:52] LABS: Lactic Acid 1.5 mmol/L (0.4-2.0)
--- NOTE | 2017-11-06 17:00 | RAD_ITS ---
STUDY: X-RAY CHEST REASON FOR EXAM: Male, 77 years old. Febrile TECHNIQUE: PA and lateral COMPARISON: June 22, 2017 FINDINGS: There is elevation right hemidiaphragm. There is mild interstitial thickening at both lung bases.. There is multifocal calcific pleural plaquing. Heart is mildly enlarged. Normal mediastinum and mamadou. Normal visualized pulmonary arteries. Tortuous mildly calcified aortic arch and descending thoracic aorta. Dorsal spine demonstrates scoliosis and degenerative change. Normal visualized ribs, clavicles, and shoulders. There is no demonstrated abnormality of the visualized soft tissue structures of the upper abdomen. There is improved aeration of both lung bases since prior exam. RAD/Chest PA and Lateral IMPRESSION: Mild interstitial thickening in the lower lobes with chronic calcific pleural plaquing. No acute cardiopulmonary pathology Electronically Signed: Chapo Samuel MD at 17:22 EDT , Service support ,
--- NOTE | 2017-11-06 20:08 | HP.PCM_ITS ---
Problem List (1) Cellulitis of left leg Status: Acute (2) History of pulmonary embolism Status: Chronic (3) Asthma Status: Chronic Qualifiers: Asthma severity: moderate Asthma complication type: uncomplicated (4) Hypertension Status: Chronic Qualifiers: Hypertension type: essential hypertension (5) Open wound of left lower leg Status: Acute Qualifiers: Encounter type: sequela Qualified Code(s): S81.802S - Unspecified open wound, left lower leg, sequela History of Present Illness Date of Admission: 11/06/17 Chief Complaint: Fever, leg pain. Patient is a 77 years old wm who presents with fever and pain in the left leg. He has chronic wound with wound vac, [facility]. He was walking his dog this morning, felt fatigued, and had an episode of chills. He had visiting nurse later in the morning, when his temp was 99. Later, he presented to [facility], found to have fever or 102.2. He was sent to ED. Mild erythema surrounding open wound were noted. Temp was 100.4 in the ED, with normal WBC. He had injury with karyn shovel in May this year, had complicated history. Currently, he has wound vac to the wound. Last wound culture on 10/03/17 showed staph lugdunesis and E faecium, sensitive to Augmentin, which he is currently on. Past Medical History Past Medical History (Chronic Problems): Chronic Problems History of pulmonary embolism (Chronic) Iron deficiency anemia (Chronic) Pulmonary nodule (Chronic) HLD (hyperlipidemia) (Chronic) Diverticulosis (Chronic) Asthma (Chronic) Hypertension (Chronic) Avulsion of skin (Chronic) Avulsion of skin of hand (Chronic) Obesity (Chronic) Osteoarthritis (Chronic) Penetrating injury right leg (Chronic) Pain in right leg (Chronic) Right leg swelling (Chronic) History of prostate cancer (Chronic) Allergic rhinitis (Chronic) Rheumatoid arthritis (Chronic) Pleural plaque (Chronic) Macular degeneration (Chronic) GERD (gastroesophageal reflux disease) (Chronic) Prostate ca (Chronic) Allergies indomethacin [From Indocin] Allergy (Verified 11/06/17 14:54) Itching indomethacin sodium [From Indocin] Allergy (Verified 11/06/17 14:54) Itching oxycodone HCl [From Percocet] Allergy (Verified 11/06/17 14:54) Itching Home Medications: Ambulatory Orders Medication Instructions Recorded Albuterol Sulfate [Proventil Hfa] 2 puff IH BID 07/13/13 Azelastine HCl [Astelin] 2 spray NASAL BID 07/13/13 Fluticasone 0.05% [Flonase Nasal 2 spray NASAL BID 07/13/13 [place]] Montelukast [Singulair] 10 mg PO QHS 07/13/13 Sertraline HCl [Zoloft] 150 mg PO DAILY 07/13/13 Tiotropium [place] [Spiriva 18 MCG] 1 puff INHALATION DAILY 07/13/13 Atorvastatin Calcium [Lipitor] 10 mg PO QHS 10/26/14 Lisinopril [Zestril] 20 mg PO DAILY 10/26/14 Ferrous Sulfate 325 mg PO BID 07/14/15 Multivitamin [Daily Multiple 1 each PO DAILY 07/14/15 Vitamin] Omeprazole [Prilosec] 20 mg PO DAILY 07/14/15 Polyethylene Glycol 3350 [Miralax] 17 gm PO DAILY PRN 07/14/15 Ipratropium [Atrovent] 0.5 mg INHALATION 4X/DAY PRN 09/03/16 Guaifenesin [Mucinex] 600 mg PO BID 01/12/17 Fluticasone/Salmeterol [Advair Hfa 2 puff INHALATION BID 06/22/17 230-21 Mcg Inhaler] Nystatin/Triamcin Cream [Mycolog] 1 applic TOPICAL BID PRN 06/22/17 Hydrocodone Bitart/Apap 5-325 1 tab PO Q4H PRN PRN #20 tab 09/16/17 [[place] 5/325] Lactobacillus Acidophilus 2 tab PO TID #30 tab 09/16/17 [Acidophilus] Surgical History: - - Umbilical hernia repair, appendectomy, bilateral carpal tunnel surgery, Prostatectomy, Cataract surgery, L lens implant, L knee surgery followed by LTKR, L shoulder surgery, left total hip replacement. Smoking Status: Never smoker - *Family History Sibling History Items: Diabetes, Renal Disease, - - Patient's father at the age of 76 with history of colon cancer myocardial infarction. Patient's mother at age of 86 with a history of breast cancer. Maternal History Items: Cancer Paternal History Items: Cancer Review of Systems Comment: ROS: In general: he has been feeling well until today, but developed fever and chills as above. HEENT: Unremarkable. Patient denied of any dizziness , chronic headache, blurred vision, double vision, dry mouth, or nasal congestion. CV/respiratory: There is no exertional shortness of breath, chest pain, palpitation, wheezing, cough, claudication, cold feet, or peripheral edema. GI: Patient denied any abdominal pain, nausea, vomiting, diarrhea, constipation, melena, or hematochezia. : Patient denied any significant urinary symptoms. Neurology: Unremarkable. No focal deficit. There is no history of seizure as an adult. Psychological: Unremarkable. No depressed mood or suicidal ideation. No hallucinations. Endocrine: Unremarkable. Musculoskeletal: +chronic open wound of left leg. No muscular wasting, chronic musculoskeletal pain, persisting joint pain, or focal muscular weakness. VTE Information - Inpt Only VTE Present on Admission: No VTE Mechan Device Prophylaxis: None VTE Pharm Prophylaxis ordered?: Yes Patient Problems: Active and Suspected Problems Cellulitis of left leg (Acute) Leg swelling (Acute) 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 (Acute) Anemia (Acute) Traumatic wound (Acute) Open wound of left lower extremity (Acute) Fever (Acute) Traumatic open wound of left lower leg (Acute) Open wound of left lower leg (Acute) Open wound (Acute) Avulsion of skin of right lower leg (Acute) Objective: In general, patient is a well-nourished and developed adult. HEENT: Head is atraumatic, and normocephalic. Pupils are equal, round, and reactive to light and accommodations. Neck is supple. There is no lymphadenopathy, or thyromegaly. Oral mucosa is pink, and moist. There are no lesions. Heart: Auscultation is normal with regular rhythm and rate. There is no extra heart sounds, or murmurs. S1 and S2 are present. Point of maximal impulse is not displaced. Lungs: Lungs are clear to auscultation bilaterally. There is no wheezing, or crackles. Abdomen: Abdominal wall is non-tender, and non-distended. There is no palpable mass or organomegaly. Normoactive bowel sounds are present. Extremities: There is no cyanosis or clubbing. Peripheral pulses are palpable. There is no edema. Skin: Wound Vac in place, left distal leg. Mild erythema surrounding the wound , extending to just below knee anteriorly, and up to mid thigh posteriorly. Neurological: CN II - XII are intact. Sensory and motor functions are grossly normal with no obvious deficit. Cerebellar functions are within normal range. Gait was not tested. - Physical Exam Vital Signs Temp Pulse Resp BP Pulse Ox 98.1 F 96 16 115/72 96 11/06/17 19:00 11/06/17 19:00 11/06/17 19:00 11/06/17 19:00 11/06/17 19:00 Oxygen Delivery Method Room Air Weight: 204 lb 12.951 oz Body Mass Index (BMI) 34.1 Assessment/Plan All Active Problems Cellulitis of left leg (Acute) Abscess of left leg (Acute) Leg swelling (Acute) 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 (Acute) Anemia (Acute) Traumatic wound (Acute) Open wound of left lower extremity (Acute) Fever (Acute) Traumatic open wound of left lower leg (Acute) Open wound of left lower leg (Acute) Open wound (Acute) Avulsion of skin of right lower leg (Acute) Abscess of right leg (Resolved) Patient is a 77 years old wm who presents with fever and pain in the left leg. He has chronic wound with wound vac, [facility]. He was walking his dog this morning, felt fatigued, and had an episode of chills. He had visiting nurse later in the morning, when his temp was 99. Later, he presented to [facility], found to have fever or 102.2. He was sent to ED. Mild erythema surrounding open wound were noted. Temp was 100.4 in the ED, with normal WBC. He had injury with karyn shovel in May this year, had complicated history. Currently, he has wound vac to the wound. Last wound culture on 10/03/17 showed staph lugdunensis and E faecium, sensitive to Augmentin, which he is currently on. #1 Cellulitis left leg. Open wound from injury in May 2017. With open wound. He has been taking Augmentin. No MRSA from previous cultures. He was started on Zosyn empirically. Continue. Consult ID in AM. Consultation requested. Blood culture obtained in ED. Await results. Monitor CBC. #2 Asthma, mild persistent. Continue home medications. #3 Essential hypertension. Continue lisinopril. #4 Chronic iron deficiency anemia. Hgb 11.2, stable. Monitor CBC. Continue iron supplement. #5 History of pulmonary emboli. He was on anticoagulation, but it is on hold pending further work up per hematology. Use SQ heparin during the hospital stay. VTE prophylaxis: Heparin SQ. GI prophylaxis: PPI po. He is full code. Code status discussed. Disposition: Home when stable. Code Visit Inpatient E&M: 53792 Init Hosp L3
[2017-11-06] MEDS: 0.9% NaCl Peripheral Flush Adult/Peds IV (22:14)
[2017-11-06] MEDS: Heparin Injection (Vial) 5,000 UNIT/ML VIAL 5000 UNIT SC (22:18)
[2017-11-06] MEDS: Atorvastatin Calcium 10 MG Tablet PO (22:19)
[2017-11-06] MEDS: Montelukast 10 MG Tablet PO (22:20)
[2017-11-06] MEDS: guaiFENesin 600 MG Tablet PO (22:20)
[2017-11-06] MEDS: Azelastine HCl NASAL.SRY 2 SPRAY NASAL (22:23)
[2017-11-06] MEDS: Fluticasone 0.05% 1 SPRAY NASAL.SRY 2 SPRAY NASAL (22:23)
[2017-11-06] MEDS: Budesonide Respules 0.5 MG/2 ML AMPUL.NEB. INHALATION (22:36)
[2017-11-06] MEDS: Ipratropium/Albuterol Sulfate 3 ML AMPUL.NEB 2.5 ML INHALATION (22:36)
[2017-11-06 23:01] LABS: Bedside Glucose 113 mg/dL (70-110)
[2017-11-07] VITALS (7 sets, daily range): BP systolic 118–138; BP diastolic 57–80; PULSE 76–95; RESP 16–20; TEMP 36.6–37; O2SAT 93–99
[2017-11-07 00:58] LABS: M R Staph aureus DNA By PCR Negative (Negative); Probe Check PASS; Specimen Processing Control PASS; Staph aureus DNA By PCR NEGATIVE (Negative)
[2017-11-07] MEDS: Heparin Injection (Vial) 5,000 UNIT/ML VIAL 5000 UNIT SC ×3 (06:27→22:23)
[2017-11-07] MEDS: Piperacil/Tazobactam 3.375 GM/50 ML ML IV ×3 (06:27→22:24)
[2017-11-07 06:46] LABS: Bedside Glucose 126 mg/dL (70-110)
[2017-11-07] MEDS: Ipratropium/Albuterol Sulfate 3 ML AMPUL.NEB 2.5 ML INHALATION ×3 (06:47→20:14)
[2017-11-07] MEDS: Budesonide Respules 0.5 MG/2 ML AMPUL.NEB. INHALATION ×2 (06:47→20:14)
[2017-11-07 07:00] LABS: Absolute Lymphocyte Count 0.54 X10^3/ul (0.83-4.51); Absolute Neutrophil Count 3.8 X10^3/uL (2.0-7.7); Basophil# 0.02 X10^3/uL; Basophil% 0.4 % (0-1); Eosinophil# 0.16 X10^3/uL; Eosinophils% 3.1 % (0-5); Hematocrit 33.8 % (40-54); Hemoglobin 10.7 g/dl (13.0-16.5); Lymphocyte # 0.54 X10^3/ul (4.0); Lymphocyte % 10.3 % (19-41); Mean Corp Hgb Conc 31.7 g/gl (32-36); Mean Corpuscular Hgb 27.4 pg (27.0-32.0); Mean Corpuscular Volume 86.4 fL (80-94); Mean Platelet Vol. 9.4 fl (6.2-12.0); Monocyte# 0.69 X10^3/uL; Monocyte% 13.2 % (0-10); Neutrophil % 72.8 % (47-70); Platelet Count 194 K/mm3 (150-450); RBC Distribution Width CV 15.7 % (11.6-14.6); RBC Distribution Width SD 49.9 fl (35.1-43.9); Red Blood Count 3.91 M/mm3 (4.6-6.2); White Blood Count 5.2 K/mm3 (4.4-11.0)
--- NOTE | 2017-11-07 07:00 | NURSING ---
[facility] called. they have placed pt's order on hold and will need to be notified to either cloth picker wound vac or to continue services when pt d/c.
[2017-11-07 07:05] LABS: Differential Indicated SCAN CRITERIA MET; POSITIVE COUNT NO; POSITIVE DIFFERENTIAL YES; POSITIVE MORPHOLOGY NO
[2017-11-07 07:06] LABS: Anion Gap 7 (5-15); BUN 13 mg/dL (7-18); BUN/Creat Ratio 11.7 RATIO (10-20); Calcium,Total 8.6 mg/dL (8.5-10.1); Chloride 104 mmol/L (98-107); Creatinine, Serum 1.11 mg/dL (0.70-1.30); EST Glomerular Filtration Rate 68 mL/min (>60); Est Glom Filt Rate - Afr Amer 82 mL/min (>60); Estimated Creatinine Clearance 45.19 ml/min; Glucose 125 mg/dL (74-106); Potassium 4.4 mmol/L (3.5-5.1); Sodium Level 136 mmol/L (136-145)
--- NOTE | 2017-11-07 08:54 | VDLE_ITS ---
Reason For Study: LEG PAIN AND SWELLING RIGHT LEFT GSV is normal. GSV is normal. CFV is compressible, spontaneous, phasic, CFV is compressible, spontaneous, phasic, competent and demonstrates normal competent, and demonstrates normal augmentation. augmentation. FV is compressible, spontaneous, phasic, FV is compressible, spontaneous, phasic, competent and demonstrates normal competent and demonstrates normal augmentation. augmentation. POP V is compressible, spontaneous, phasic, POP V is compressible, spontaneous, phasic, competent and demonstrates normal competent and demonstrates normal augmentation. augmentation. T/P Trunk is compressible. T/P Trunk is compressible. PTV is compressible. PTV is compressible. RT PerV is compressible. LT PerV is compressible. Procedure Exam performed portable in patient room. A preliminary report was called and/or faxed to [id number]. Interpretation Summary Deep veins of the lower extremities are bilaterally patent and compressible segmentally. There is no evidence of deep vein thrombosis on either side. Valvular competence appears intact within the proximal deep venous systems bilaterally. The greater saphenous veins appear bilaterally patent and compressible segmentally. Ordering Physician: Sung Jones Referring Physician: Lambert Larios M.D. Performed By: Leigh Ann George RVT
--- NOTE | 2017-11-07 09:20 | NURSING ---
wound photo: left lower leg
[2017-11-07] MEDS: Azelastine HCl NASAL.SRY 2 SPRAY NASAL ×2 (10:48→22:23)
[2017-11-07] MEDS: Pantoprazole Sodium 20 MG Tablet PO (10:49)
[2017-11-07] MEDS: Ferrous Sulfate 325 MG Tablet PO ×2 (10:49→13:48)
[2017-11-07] MEDS: Lisinopril 20 MG Tablet PO (10:50)
[2017-11-07] MEDS: Sertraline 100 MG Tablet 150 MG PO (10:50)
[2017-11-07] MEDS: guaiFENesin 600 MG Tablet PO ×2 (10:51→22:24)
[2017-11-07] MEDS: Fluticasone 0.05% 1 SPRAY NASAL.SRY 2 SPRAY NASAL ×2 (10:52→22:23)
--- NOTE | 2017-11-07 11:09 | CASEMGMT ---
SEE RN LIZY LINK. D/C PLAN: RETURN HOME WITH CONTINUED [facility] SERVICE AND FOLLOW-UP AT WOUND CLINIC. -RESUME HOME HEALTH ORDER PLACED. ID CONSULT PENDING.
[2017-11-07 11:55] LABS: Bedside Glucose 115 mg/dL (70-110)
--- NOTE | 2017-11-07 14:13 | PCM.HP.ID ---
Problem List (1) Cellulitis of left leg Status: Acute Reason for Consult: fever Consulted by: Dr. Jones History of Present Illness: The patient is a 77 year old M with admit in 08/2017 after cutting his leg on a shovel 09/05. Taken to OR 09/12. Cxs (+) for enterococcus, citro, bacillus. Has done well since then, follows at wound care, has been off abx for several weeks now. Yesterday developed some weakness, chills, fever. Had not noticed any new pain/redness/swelling/drainage at L cota wound. No other new symptoms. No sick contacts. Sent to ED, some redness noticed at inferior cota, started on zosyn, feeling better. Full ROS performed and neg except as noted above. No dysuria, no cough, no n/v/d, no abd pain, no congestion. - Medical History Past Medical History (Chronic Problems): Chronic Problems History of pulmonary embolism (Chronic) Iron deficiency anemia (Chronic) Pulmonary nodule (Chronic) HLD (hyperlipidemia) (Chronic) Diverticulosis (Chronic) Asthma (Chronic) Hypertension (Chronic) Avulsion of skin (Chronic) Avulsion of skin of hand (Chronic) Obesity (Chronic) Osteoarthritis (Chronic) Penetrating injury right leg (Chronic) Pain in right leg (Chronic) Right leg swelling (Chronic) History of prostate cancer (Chronic) Allergic rhinitis (Chronic) Rheumatoid arthritis (Chronic) Pleural plaque (Chronic) Macular degeneration (Chronic) GERD (gastroesophageal reflux disease) (Chronic) Prostate ca (Chronic) Allergies/Adverse Reactions: Allergies indomethacin [From Indocin] Allergy (Verified 11/06/17 14:54) Itching indomethacin sodium [From Indocin] Allergy (Verified 11/06/17 14:54) Itching oxycodone HCl [From Percocet] Allergy (Verified 11/06/17 14:54) Itching Home Medications: Ambulatory Orders Medication Instructions Recorded Albuterol Sulfate [Proventil Hfa] 2 puff IH BID 07/13/13 Azelastine HCl [Astelin] 2 spray NASAL BID 07/13/13 Fluticasone 0.05% [Flonase Nasal 2 spray NASAL BID 07/13/13 [place]] Montelukast [Singulair] 10 mg PO QHS 07/13/13 Sertraline HCl [Zoloft] 150 mg PO DAILY 07/13/13 Tiotropium [place] [Spiriva 18 MCG] 1 puff INHALATION DAILY 07/13/13 Atorvastatin Calcium [Lipitor] 10 mg PO QHS 10/26/14 Lisinopril [Zestril] 20 mg PO DAILY 10/26/14 Ferrous Sulfate 325 mg PO BID 07/14/15 Multivitamin [Daily Multiple 1 each PO DAILY 07/14/15 Vitamin] Omeprazole [Prilosec] 20 mg PO DAILY 07/14/15 Polyethylene Glycol 3350 [Miralax] 17 gm PO DAILY PRN 07/14/15 Ipratropium [Atrovent] 0.5 mg INHALATION 4X/DAY PRN 09/03/16 Guaifenesin [Mucinex] 600 mg PO BID 01/12/17 Fluticasone/Salmeterol [Advair Hfa 2 puff INHALATION BID 06/22/17 230-21 Mcg Inhaler] Nystatin/Triamcin Cream [Mycolog] 1 applic TOPICAL BID PRN 06/22/17 Hydrocodone Bitart/Apap 5-325 1 tab PO Q4H PRN PRN #20 tab 09/16/17 [[place] 5/325] Lactobacillus Acidophilus 2 tab PO TID #30 tab 09/16/17 [Acidophilus] - Social History SMOKING STATUS:: Never smoker Vital Signs Temp Pulse Resp BP Pulse Ox 97.8 F 88 20 H 134/76 H 97 11/07/17 11:00 11/07/17 13:04 11/07/17 13:04 11/07/17 11:00 11/07/17 11:00 Oxygen Delivery Method Room Air Weight: 92.9 kg Body Mass Index (BMI) 34.1 Laboratory Tests Past 24 Hrs 11/06/17 11/07/17 11/07/17 23:05 06:31 06:31 WBC 5.2 RBC 3.91 L Hgb 10.7 L Hct 33.8 L MCV 86.4 MCH 27.4 MCHC 31.7 L RDW 15.7 H RDW Differential 49.9 H Plt Count 194 MPV 9.4 Immature Gran % (Auto) 0.200 Neut % (Auto) 72.8 H Lymph % (Auto) 10.3 L [place] % (Auto) 13.2 H Eos % (Auto) 3.1 Baso % (Auto) 0.4 Absolute Neuts (auto) 3.8 Absolute Lymphs (auto) 0.54 L Total Counted Not Reportable Sodium 136 Potassium 4.4 Chloride 104 Carbon Dioxide 25.0 Anion Gap 7 BUN 13 Creatinine 1.11 Estim Creat Clear Calc 45.19 Est GFR (MDRD) Af Amer 82 Est GFR (MDRD) Non-Af 68 BUN/Creatinine Ratio 11.7 Glucose 125 H Calcium 8.6 S.aureus Protein A PCR NEGATIVE MRSA (PCR) Negative - Other Studies Radiology: [] reviewed Other Studies: [] Route of nutrition/ use of supplements: [] Nutritional Intake: [] IV Site: [] [place] Catheter: [] - Physical Exam General: Alert, Oriented x3, Cooperative, No apparent distress HEENT: Atraumatic, PERRLA, EOMI Neck: Supple, No Nodes Lungs: Clear to auscultation, Normal air movement Cardiovascular: Regular rate, Regular Rhythm, No murmurs Abdomen: Bowel Sounds Present, Soft, Non Tender, Non-Distended Extremities: Peripheral Pulses Normal Skin: Ulcer/ Wound - L cota with mild redness at inferior portion of wound Musculoskeletal: No Tenderness to Palpation of Joints or Extremities Neurological: Cranial nerves II-XII grossly intact - Assessment/Plan Antibiotics: [] Assessment/Plan: [] Active and Suspected Problems Cellulitis of left leg (Acute) Fever (Acute) Cxs pending. Staph pcr neg. Cont zosyn for now. Prior cxs with citro, enterococcus, bacillus. Thank you, will follow.
--- NOTE | 2017-11-07 17:57 | PCM.PROGNOTE ---
Patient Problems: Active and Suspected Problems Cellulitis of left leg (Acute) Fever (Acute) Subjective: Patient was seen and examined today, I looked at his left leg wound after the wound care nurse removed his bandages this morning, there is no obvious purulent discharge noted, cultures of the wound area were obtained however, infectious diseases saw the patient today and recommended continuing Zosyn. I did a venous duplex scan of both lower extremities and they were negative for DVTs-patient had a history of PE in the past from an unknown source. Patient has been doing well today, his T-max today is been 98.6. - Physical Exam General: Alert, Oriented x3, Cooperative, No apparent distress, Well developed, Well nourished HEENT: Atraumatic, PERRLA, EOMI, Normocephalic Oral: Moist Mucosa Neck: Supple, No JVD, Negative Carotid Bruits, No Nuchal Rigidity, Trachea Midline, Thyroid Normal Size and Texture Lungs: Clear to auscultation, Normal air movement, No rhonchi, No wheeze, No rales Cardiovascular: Regular rate, Regular Rhythm, Normal S1, Normal S2, No murmurs Abdomen: Bowel Sounds Present, Soft, Non Tender, Non-Distended, No hernias noted Extremities: Capillary Refill Less than 3 Seconds, Edema - There is generalized edema of the left lower leg noted with some erythema in the calf area extending into the knee area. There is a large wound on the patient's left lower leg which appears to be granulating in, description may be found in documentation by the wound care nurse. There is some generalized edema in the right lower leg which is minimal. Musculoskeletal: No Tenderness to Palpation of Joints or Extremities Neurological: Cranial nerves II-XII grossly intact, Neuro grossly intact, Sensory exam intact to light touch and pain, Coordination normal Psych/Mental Status: Normal Affect, Appropriate, Alert and oriented to time, place, person, mood and affect Vital Signs Temp Pulse Resp BP Pulse Ox 98.2 F 95 18 124/67 H 99 11/07/17 15:00 11/07/17 15:00 11/07/17 15:00 11/07/17 15:11/07/17 15:00 Oxygen Delivery Method Room Air Weight: 92.9 kg Body Mass Index (BMI) 34.1 Intake and Output for Last 24 Hours 11/05/17 11/06/17 11/07/17 23:59 23:59 23:59 Intake Total 162 / 162 Balance 162 / 162 Microbiology Past 72 Hours 11/07/17 08:30 Gram Stain - Final Wound - Leg, Left Laboratory Tests Past 24 Hrs 11/06/17 11/07/17 11/07/17 23:05 06:31 06:31 WBC 5.2 RBC 3.91 L Hgb 10.7 L Hct 33.8 L MCV 86.4 MCH 27.4 MCHC 31.7 L RDW 15.7 H RDW Differential 49.9 H Plt Count 194 MPV 9.4 Immature Gran % (Auto) 0.200 Neut % (Auto) 72.8 H Lymph % (Auto) 10.3 L [place] % (Auto) 13.2 H Eos % (Auto) 3.1 Baso % (Auto) 0.4 Absolute Neuts (auto) 3.8 Absolute Lymphs (auto) 0.54 L Total Counted Not Reportable Sodium 136 Potassium 4.4 Chloride 104 Carbon Dioxide 25.0 Anion Gap 7 BUN 13 Creatinine 1.11 Estim Creat Clear Calc 45.19 Est GFR (MDRD) Af Amer 82 Est GFR (MDRD) Non-Af 68 BUN/Creatinine Ratio 11.7 Glucose 125 H Calcium 8.6 S.aureus Protein A PCR NEGATIVE MRSA (PCR) Negative POC Glucose 11/07/17 11/07/17 11/06/17 11:29 06:25 22:30 POC Glucose 115 H 126 H 113 H Medical Necessity - Tobacco Use Smoking Status: Never smoker Assessment/Plan All Active Problems Cellulitis of left leg (Acute) Abscess of left leg (Acute) Leg swelling (Acute) 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 (Acute) Anemia (Acute) Traumatic wound (Acute) Open wound of left lower extremity (Acute) Fever (Acute) Traumatic open wound of left lower leg (Acute) Open wound of left lower leg (Acute) Open wound (Acute) Avulsion of skin of right lower leg (Acute) Abscess of right leg (Resolved) #1 acute recurrent cellulitis of the left lower leg-presumed to be bacterial in nature, organism unknown at this time await cultures and continue Zosyn day #2, ID is participating in his care #2 hypertension-remain on present medication #3 hyperlipidemia-remain on present medication #4 osteoarthritis #5 asthma-stable at this time Code Visit Inpatient E&M: 21478 Subs Hosp L2
[2017-11-07 18:16] LABS: Bedside Glucose 170 mg/dL (70-110)
[2017-11-07] MEDS: Atorvastatin Calcium 10 MG Tablet PO (22:24)
[2017-11-07] MEDS: 0.9% NaCl Peripheral Flush Adult/Peds IV (22:24)
[2017-11-07] MEDS: Montelukast 10 MG Tablet PO (22:24)
[2017-11-07 22:56] LABS: Bedside Glucose 122 mg/dL (70-110)
[2017-11-08 03:39] VITALS: BP 135/74; PULSE 82; RESP 18; TEMP 36.6; O2SAT 92
[2017-11-08] MEDS: Acetaminophen 325 MG Tablet 650 MG PO (04:41)
[2017-11-08] MEDS: Heparin Injection (Vial) 5,000 UNIT/ML VIAL 5000 UNIT SC ×3 (06:52→22:43)
[2017-11-08] MEDS: Piperacil/Tazobactam 3.375 GM/50 ML ML IV ×3 (06:52→22:41)
[2017-11-08 06:56] LABS: Absolute Lymphocyte Count 0.79 X10^3/ul (0.83-4.51); Absolute Neutrophil Count 3.2 X10^3/uL (2.0-7.7); Basophil# 0.02 X10^3/uL; Basophil% 0.4 % (0-1); Eosinophil# 0.18 X10^3/uL; Eosinophils% 3.6 % (0-5); Hemoglobin 10.9 g/dl (13.0-16.5); Lymphocyte # 0.79 X10^3/ul (4.0); Lymphocyte % 15.9 % (19-41); Mean Corp Hgb Conc 32.1 g/gl (32-36); Mean Corpuscular Volume 87.4 fL (80-94); Mean Platelet Vol. 10.3 fl (6.2-12.0); Monocyte# 0.76 X10^3/uL; Monocyte% 15.3 % (0-10); Neutrophil # 3.19 X10^3/uL (2.7-7.7); Neutrophil % 64.2 % (47-70); Platelet Count 203 K/mm3 (150-450); RBC Distribution Width CV 15.2 % (11.6-14.6); RBC Distribution Width SD 48.2 fl (35.1-43.9); Red Blood Count 3.89 M/mm3 (4.6-6.2)
[2017-11-08 07:06] LABS: POSITIVE COUNT NO; POSITIVE DIFFERENTIAL NO; POSITIVE MORPHOLOGY NO
[2017-11-08 07:09] LABS: Anion Gap 7 (5-15); BUN 13 mg/dL (7-18); BUN/Creat Ratio 11.8 RATIO (10-20); Chloride 105 mmol/L (98-107); EST Glomerular Filtration Rate 69 mL/min (>60); Est Glom Filt Rate - Afr Amer 83 mL/min (>60); Estimated Creatinine Clearance 47.37 ml/min; Glucose 122 mg/dL (74-106); Potassium 4.2 mmol/L (3.5-5.1); Sodium Level 139 mmol/L (136-145)
[2017-11-08] MEDS: Ipratropium/Albuterol Sulfate 3 ML AMPUL.NEB 2.5 ML INHALATION ×3 (07:24→18:48)
[2017-11-08] MEDS: Budesonide Respules 0.5 MG/2 ML AMPUL.NEB. INHALATION ×2 (07:24→18:48)
[2017-11-08 07:25] VITALS: PULSE 87; RESP 18; O2SAT 96
--- NOTE | 2017-11-08 08:25 | PCM.PROGNOTE ---
Patient Problems: Active and Suspected Problems Cellulitis of left leg (Acute) Fever (Acute) Subjective: He feels well. He is afebrile x 36 hours. Burning pain of the left leg is better. - Physical Exam General: Alert, Oriented x3, Cooperative, No apparent distress HEENT: Atraumatic, PERRLA, EOMI, Normocephalic Oral: Moist Mucosa, No Gingival or Mucosal Lesions/ Ulcerations Neck: Supple, No JVD Lungs: Clear to auscultation, Normal air movement, No rhonchi, No wheeze, No rales Cardiovascular: Regular rate, Regular Rhythm, Normal S1, Normal S2, No murmurs, No Ectopic Activity Abdomen: Bowel Sounds Present, Soft, Non Tender, Non-Distended, No Hepato-splenomegaly Extremities: No clubbing, No cyanosis, Edema - trace edema, left > right. Skin: - - Left distal leg is wrapped, wound vac in place. Erythema up to knee and posterior thigh appears unchanged. Musculoskeletal: No Tenderness to Palpation of Joints or Extremities, No Muscle Wasting Lymphatic: No Cervical, Supraclavicular, or Inguinal Adenopathy Neurological: Cranial nerves II-XII grossly intact, Neuro grossly intact Psych/Mental Status: Normal Affect Vital Signs Temp Pulse Resp BP Pulse Ox 97.9 F 87 18 135/74 H 96 11/08/17 03:39 11/08/17 07:25 11/08/17 07:25 11/08/17 03:39 11/08/17 07:25 Oxygen Delivery Method Room Air Weight: 204 lb 12.951 oz Body Mass Index (BMI) 34.1 Intake and Output for Last 24 Hours 11/06/17 11/07/17 11/08/17 23:59 23:59 23:59 Intake Total 162 / 162 581.5 / 581.5 Balance 162 / 162 581.5 / 581.5 Microbiology Past 72 Hours 11/07/17 08:30 Gram Stain - Final Wound - Leg, Left Laboratory Tests Past 24 Hrs 11/08/17 11/08/17 06:20 06:20 WBC 5.0 RBC 3.89 L Hgb 10.9 L Hct 34.0 L MCV 87.4 MCH 28.0 MCHC 32.1 RDW 15.2 H RDW Differential 48.2 H Plt Count 203 MPV 10.3 Immature Gran % (Auto) 0.600 Neut % (Auto) 64.2 Lymph % (Auto) 15.9 L [place] % (Auto) 15.3 H Eos % (Auto) 3.6 Baso % (Auto) 0.4 Absolute Neuts (auto) 3.2 Absolute Lymphs (auto) 0.79 L Total Counted Not Reportable Sodium 139 Potassium 4.2 Chloride 105 Carbon Dioxide 27.0 Anion Gap 7 BUN 13 Creatinine 1.10 Estim Creat Clear Calc 47.37 Est GFR (MDRD) Af Amer 83 Est GFR (MDRD) Non-Af 69 BUN/Creatinine Ratio 11.8 Glucose 122 H Calcium 9.0 POC Glucose 11/07/17 11/07/17 11/07/17 22:47 18:03 11:29 POC Glucose 122 H 170 H 115 H Diagnostic Data Chest X-Ray 11/06/17 17:00 IMPRESSION: Mild interstitial thickening in the lower lobes with chronic calcific pleural plaquing. No acute cardiopulmonary pathology Electronically Signed: Chapo Samuel MD at 17:22 EDT , Service support , [facility]. Negative for DVT. Medical Necessity - Tobacco Use Smoking Status: Never smoker Assessment/Plan All Active Problems Cellulitis of left leg (Acute) Abscess of left leg (Acute) Leg swelling (Acute) 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 (Acute) Anemia (Acute) Traumatic wound (Acute) Open wound of left lower extremity (Acute) Fever (Acute) Traumatic open wound of left lower leg (Acute) Open wound of left lower leg (Acute) Open wound (Acute) Avulsion of skin of right lower leg (Acute) Abscess of right leg (Resolved) Patient is a 77 years old wm who presents with fever and pain in the left leg. He has chronic wound with wound vac, [facility] He was walking his dog this morning, felt fatigued, and had an episode of chills. He had visiting nurse later in the morning, when his temp was 99. Later, [facility], found to have fever or 102.2. He was sent to ED. Mild erythema surrounding open wound were noted. Temp was 100.4 in the ED, with normal WBC. He had injury with karyn shovel in May this year, had complicated history. Currently, he has wound vac to the wound. Last wound culture on 10/03/17 showed staph lugdunensis and E faecium, sensitive to Augmentin, which he is currently on. #1 Cellulitis left leg. Open wound from injury in May 2017. With open wound. He was on Augmentin. No MRSA from previous cultures. He was started on Zosyn empirically. ID is following. Consultation appreciated. BCx (11/06) negative to date. Wound culture (11/07) gram positive cocci. US of leg was done on 11/07, negative for DVT. Continue Zosyn. Await culture results. #2 Asthma, mild persistent. Singulair, Pulmicort Aaron Neb, and Albuterol Med Neb prn. #3 Essential hypertension. Continue lisinopril. #4 Chronic iron deficiency anemia. Hgb 11.2 - 10.7. Stable. Monitor CBC. Continue iron supplement. #5 History of pulmonary emboli. He was on anticoagulation, but it is on hold pending further work up per hematology. Use SQ heparin during the hospital stay. VTE prophylaxis: Heparin SQ. GI prophylaxis: PPI po. He is full code. Code status discussed. Disposition: Home when stable. Code Visit Inpatient E&M: 09930 Subs Hosp L2
[2017-11-08] MEDS: Fluticasone 0.05% 1 SPRAY NASAL.SRY 2 SPRAY NASAL ×2 (10:31→22:41)
[2017-11-08] MEDS: Lisinopril 20 MG Tablet PO (10:32)
[2017-11-08] MEDS: Ferrous Sulfate 325 MG Tablet PO ×2 (10:33→20:04)
[2017-11-08] MEDS: Sertraline 100 MG Tablet 150 MG PO (10:34)
[2017-11-08] MEDS: guaiFENesin 600 MG Tablet PO ×2 (10:34→22:43)
[2017-11-08] MEDS: Pantoprazole Sodium 20 MG Tablet PO (10:35)
[2017-11-08] MEDS: Azelastine HCl NASAL.SRY 2 SPRAY NASAL ×2 (10:43→22:40)
[2017-11-08 10:48] VITALS: BP 118/91; PULSE 91; RESP 18; TEMP 36.8; O2SAT 97
--- NOTE | 2017-11-08 11:19 | NURSING ---
Blood sugar is 135, pt sitting in chair getting ready to eat lunch.
[2017-11-08 11:40] LABS: Bedside Glucose 135 mg/dL (70-110)
[2017-11-08 13:10] VITALS: PULSE 85; RESP 18
[2017-11-08 18:46] LABS: Bedside Glucose 170 mg/dL (70-110)
[2017-11-08 18:50] VITALS: PULSE 107; RESP 18
[2017-11-08 20:17] VITALS: BP 134/76; PULSE 94; PULSE 95; RESP 18; TEMP 37.1; O2SAT 95
[2017-11-08] MEDS: Montelukast 10 MG Tablet PO (22:43)
[2017-11-08] MEDS: Atorvastatin Calcium 10 MG Tablet PO (22:43)
[2017-11-08] MEDS: HYDROcodone Bitartrate/Apap 5/325 Tablet PO (22:48)
[2017-11-09] VITALS (8 sets, daily range): BP systolic 107–136; BP diastolic 57–81; PULSE 84–99; RESP 16–21; TEMP 36.7–36.9; O2SAT 94–95
[2017-11-09 00:40] LABS: Bedside Glucose 155 mg/dL (70-110)
[2017-11-09 05:59] LABS: Absolute Lymphocyte Count 0.91 X10^3/ul (0.83-4.51); Absolute Neutrophil Count 3.7 X10^3/uL (2.0-7.7); Basophil# 0.01 X10^3/uL; Basophil% 0.2 % (0-1); Eosinophil# 0.19 X10^3/uL; Eosinophils% 3.3 % (0-5); Hematocrit 32.3 % (40-54); Hemoglobin 9.9 g/dl (13.0-16.5); Lymphocyte # 0.91 X10^3/ul (4.0); Lymphocyte % 15.8 % (19-41); Mean Corp Hgb Conc 30.7 g/gl (32-36); Mean Corpuscular Hgb 26.8 pg (27.0-32.0); Mean Corpuscular Volume 87.3 fL (80-94); Mean Platelet Vol. 9.9 fl (6.2-12.0); Monocyte# 0.91 X10^3/uL; Monocyte% 15.8 % (0-10); Neutrophil # 3.72 X10^3/uL (2.7-7.7); Neutrophil % 64.7 % (47-70); Platelet Count 204 K/mm3 (150-450); RBC Distribution Width CV 15.5 % (11.6-14.6); RBC Distribution Width SD 50.3 fl (35.1-43.9); White Blood Count 5.8 K/mm3 (4.4-11.0)
[2017-11-09 06:22] LABS: Anion Gap 9 (5-15); BUN 17 mg/dL (7-18); BUN/Creat Ratio 15.6 RATIO (10-20); Calcium,Total 8.8 mg/dL (8.5-10.1); Chloride 104 mmol/L (98-107); Creatinine, Serum 1.09 mg/dL (0.70-1.30); EST Glomerular Filtration Rate 69 mL/min (>60); Est Glom Filt Rate - Afr Amer 84 mL/min (>60); Glucose 111 mg/dL (74-106); Potassium 4.1 mmol/L (3.5-5.1); Sodium Level 138 mmol/L (136-145)
[2017-11-09 06:44] LABS: POSITIVE COUNT NO; POSITIVE DIFFERENTIAL NO; POSITIVE MORPHOLOGY NO
[2017-11-09] MEDS: Piperacil/Tazobactam 3.375 GM/50 ML ML IV ×3 (06:55→21:35)
[2017-11-09] MEDS: Heparin Injection (Vial) 5,000 UNIT/ML VIAL 5000 UNIT SC ×3 (06:55→21:35)
[2017-11-09] MEDS: HYDROcodone Bitartrate/Apap 5/325 Tablet PO (06:58)
[2017-11-09 07:05] LABS: Bedside Glucose 113 mg/dL (70-110)
[2017-11-09] MEDS: Ipratropium/Albuterol Sulfate 3 ML AMPUL.NEB 2.5 ML INHALATION ×3 (07:05→18:42)
[2017-11-09] MEDS: Budesonide Respules 0.5 MG/2 ML AMPUL.NEB. INHALATION ×2 (07:05→18:42)
[2017-11-09] MEDS: Pantoprazole Sodium 20 MG Tablet PO (08:30)
[2017-11-09] MEDS: Lisinopril 20 MG Tablet PO (08:30)
[2017-11-09] MEDS: Ferrous Sulfate 325 MG Tablet PO ×2 (08:30→18:06)
[2017-11-09] MEDS: Sertraline 100 MG Tablet 150 MG PO (08:30)
[2017-11-09] MEDS: guaiFENesin 600 MG Tablet PO ×2 (08:30→21:34)
[2017-11-09] MEDS: Azelastine HCl NASAL.SRY 2 SPRAY NASAL ×2 (08:31→21:34)
[2017-11-09] MEDS: Fluticasone 0.05% 1 SPRAY NASAL.SRY 2 SPRAY NASAL ×2 (08:31→21:34)
--- NOTE | 2017-11-09 10:58 | PCM.PROGNOTE ---
Patient Problems: Active and Suspected Problems Cellulitis of left leg (Acute) Fever (Acute) Subjective: He feels well. He has no significant pain in left leg. No fever or chills. Wound culture result is still pending. - Physical Exam General: Alert, Oriented x3, Cooperative, No apparent distress HEENT: Atraumatic, PERRLA, EOMI, Normocephalic Oral: Moist Mucosa, No Gingival or Mucosal Lesions/ Ulcerations Neck: Supple, No JVD Lungs: Clear to auscultation, Normal air movement, No rhonchi, No wheeze, No rales Cardiovascular: Regular rate, Regular Rhythm, Normal S1, Normal S2, No murmurs, No Ectopic Activity Abdomen: Bowel Sounds Present, Soft, Non Tender, Non-Distended, No Hepato-splenomegaly Extremities: No clubbing, No cyanosis, Edema - trace edema, left > right. Skin: - - Left distal leg is wrapped, wound vac in place. Erythema up to knee and posterior thigh appears unchanged. Musculoskeletal: No Tenderness to Palpation of Joints or Extremities, No Muscle Wasting Lymphatic: No Cervical, Supraclavicular, or Inguinal Adenopathy Neurological: Cranial nerves II-XII grossly intact, Neuro grossly intact Psych/Mental Status: Normal Affect - Physical Exam Vital Signs Temp Pulse Resp BP Pulse Ox 98.1 F 99 18 122/78 H 94 11/09/17 08:21 11/09/17 08:21 11/09/17 08:21 11/09/17 08:21 11/09/17 08:21 Oxygen Delivery Method Room Air Weight: 204 lb 12.951 oz Body Mass Index (BMI) 34.1 Intake and Output for Last 24 Hours 11/07/17 11/08/17 11/09/17 23:59 23:59 23:59 Intake Total 162 / 162 698.5 / 698.5 623 / 623 Balance 162 / 162 698.5 / 698.5 623 / 623 Microbiology Past 72 Hours 11/07/17 08:30 Gram Stain - Final Wound - Leg, Left Laboratory Tests Past 24 Hrs 11/09/17 11/09/17 05:11 05:11 WBC 5.8 RBC 3.70 L Hgb 9.9 L Hct 32.3 L MCV 87.3 MCH 26.8 L MCHC 30.7 L RDW 15.5 H RDW Differential 50.3 H Plt Count 204 MPV 9.9 Immature Gran % (Auto) 0.200 Neut % (Auto) 64.7 Lymph % (Auto) 15.8 L [place] % (Auto) 15.8 H Eos % (Auto) 3.3 Baso % (Auto) 0.2 Absolute Neuts (auto) 3.7 Absolute Lymphs (auto) 0.91 Total Counted Not Reportable Sodium 138 Potassium 4.1 Chloride 104 Carbon Dioxide 25.0 Anion Gap 9 BUN 17 Creatinine 1.09 Estim Creat Clear Calc 47.80 Est GFR (MDRD) Af Amer 84 Est GFR (MDRD) Non-Af 69 BUN/Creatinine Ratio 15.6 Glucose 111 H Calcium 8.8 POC Glucose 11/09/17 11/08/17 11/08/17 06:52 22:38 17:26 POC Glucose 113 H 155 H 170 H Diagnostic Data Chest X-Ray 11/06/17 17:00 IMPRESSION: Mild interstitial thickening in the lower lobes with chronic calcific pleural plaquing. No acute cardiopulmonary pathology Electronically Signed: Chapo Samuel MD at 17:22 EDT , Service support , 11/08/17 11:18 POC Glucose 135 H Medical Necessity - Tobacco Use Smoking Status: Never smoker Assessment/Plan All Active Problems Cellulitis of left leg (Acute) Abscess of left leg (Acute) Leg swelling (Acute) 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 (Acute) Anemia (Acute) Traumatic wound (Acute) Open wound of left lower extremity (Acute) Fever (Acute) Traumatic open wound of left lower leg (Acute) Open wound of left lower leg (Acute) Open wound (Acute) Avulsion of skin of right lower leg (Acute) Abscess of right leg (Resolved) Patient is a 77 years old wm who presents with fever and pain in the left leg. He has chronic wound with wound vac, [facility]. He was walking his dog this morning, felt fatigued, and had an episode of chills. He had visiting nurse later in the morning, when his temp was 99. Later, he [facility], found to have fever or 102.2. He was sent to ED. Mild erythema surrounding open wound were noted. Temp was 100.4 in the ED, with normal WBC. He had injury with karyn shovel in May this year, had complicated history. Currently, he has wound vac to the wound. Last wound culture on 10/03/17 showed staph lugdunensis and E faecium, sensitive to Augmentin, which he is currently on. #1 Cellulitis left leg. Open wound from injury in May 2017. With open wound. He was on Augmentin. No MRSA from previous cultures. He was started on Zosyn empirically. ID is following. Consultation appreciated. BCx (11/06) negative to date. Wound culture (11/07) gram positive cocci. US of leg was done on 11/07, negative for DVT. Continue Zosyn. Await culture results. #2 Asthma, mild persistent. Singulair, Pulmicort Aaron Neb, and Albuterol Med Neb prn. #3 Essential hypertension. Continue lisinopril. #4 Chronic iron deficiency anemia. Hgb 11.2 - 10.7. Stable. Monitor CBC. Continue iron supplement. #5 History of pulmonary emboli. He was on anticoagulation, but it is on hold pending further work up per hematology. Use SQ heparin during the hospital stay. VTE prophylaxis: Heparin SQ. GI prophylaxis: PPI po. He is full code. Code status discussed. Disposition: Home in 1 to 2 days. Code Visit Inpatient E&M: 09303 Subs Hosp L2
[2017-11-09] MEDS: Atorvastatin Calcium 10 MG Tablet PO (21:34)
[2017-11-09] MEDS: Montelukast 10 MG Tablet PO (21:34)
[2017-11-10] MEDS: HYDROcodone Bitartrate/Apap 5/325 Tablet PO (01:53)
[2017-11-10 01:59] VITALS: BP 110/62; PULSE 81; RESP 16; TEMP 36.7; O2SAT 94
[2017-11-10] MEDS: Piperacil/Tazobactam 3.375 GM/50 ML ML IV (05:01)
[2017-11-10] MEDS: Heparin Injection (Vial) 5,000 UNIT/ML VIAL 5000 UNIT SC (05:01)
[2017-11-10 06:14] LABS: Hematocrit 30.8 % (40-54); Hemoglobin 9.7 g/dl (13.0-16.5); Mean Corp Hgb Conc 31.5 g/gl (32-36); Mean Corpuscular Hgb 27.6 pg (27.0-32.0); Mean Corpuscular Volume 87.7 fL (80-94); Mean Platelet Vol. 9.9 fl (6.2-12.0); Platelet Count 203 K/mm3 (150-450); RBC Distribution Width CV 15.2 % (11.6-14.6); RBC Distribution Width SD 48.1 fl (35.1-43.9); Red Blood Count 3.51 M/mm3 (4.6-6.2); White Blood Count 5.8 K/mm3 (4.4-11.0)
[2017-11-10 06:22] LABS: Anion Gap 10 (5-15); BUN 20 mg/dL (7-18); BUN/Creat Ratio 15.3 RATIO (10-20); Calcium,Total 8.3 mg/dL (8.5-10.1); Chloride 104 mmol/L (98-107); Creatinine, Serum 1.31 mg/dL (0.70-1.30); EST Glomerular Filtration Rate 56 mL/min (>60); Est Glom Filt Rate - Afr Amer 68 mL/min (>60); Estimated Creatinine Clearance 39.77 ml/min; Glucose 140 mg/dL (74-106); Sodium Level 138 mmol/L (136-145)
[2017-11-10 06:41] LABS: Scan Indicated on CBC? Y/N NO
[2017-11-10 07:10] VITALS: PULSE 74; RESP 16; O2SAT 95
[2017-11-10] MEDS: Budesonide Respules 0.5 MG/2 ML AMPUL.NEB. INHALATION (07:10)
[2017-11-10] MEDS: Ipratropium/Albuterol Sulfate 3 ML AMPUL.NEB 2.5 ML INHALATION ×2 (07:10→12:58)
[2017-11-10] MEDS: Ferrous Sulfate 325 MG Tablet PO (07:58)
[2017-11-10 08:00] VITALS: BP 129/67; PULSE 94; RESP 16; TEMP 36.8; O2SAT 94
[2017-11-10] MEDS: guaiFENesin 600 MG Tablet PO (08:13)
[2017-11-10] MEDS: Fluticasone 0.05% 1 SPRAY NASAL.SRY 2 SPRAY NASAL (08:13)
[2017-11-10] MEDS: Azelastine HCl NASAL.SRY 2 SPRAY NASAL (08:13)
[2017-11-10] MEDS: Pantoprazole Sodium 20 MG Tablet PO (08:14)
[2017-11-10] MEDS: Lisinopril 20 MG Tablet PO (08:14)
[2017-11-10] MEDS: Sertraline 100 MG Tablet 150 MG PO (08:14)
--- NOTE | 2017-11-10 08:45 | PCM.PROGNOTE ---
Patient Problems: Active and Suspected Problems Cellulitis of left leg (Acute) Subjective: Chief complaint: Follow-up after admission for left leg cellulitis in context of history of left leg injury in May, complicated by infected wound, status post wound VAC. Patient seen and examined. No acute events overnight. He denies any significant complaints. Denies any leg pain. His vital signs are stable, afebrile. - Physical Exam General: Alert, Oriented x3, Cooperative, No apparent distress HEENT: Atraumatic, PERRLA, EOMI Oral: Moist Mucosa, No Gingival or Mucosal Lesions/ Ulcerations Neck: Supple, No JVD, Negative Carotid Bruits, Trachea Midline, Thyroid Normal Size and Texture Lungs: Clear to auscultation, No wheeze, No rales, Diminished, Rhonchi Cardiovascular: Regular rate, Regular Rhythm, Normal S1, Normal S2, PMI Normal Abdomen: Bowel Sounds Present, Soft, Non Tender, Non-Distended, No Hepato-splenomegaly Extremities: No clubbing, No cyanosis, No edema Skin: No rashes, Ulcer/ Wound, - - Left leg: Open wound measuring about 3 x 18 cm along the anterolateral aspect of the left leg with surrounding mild erythema. Wound VAC taken off and wound is healing very well with granulation tissue. Lymphatic: No Cervical, Supraclavicular, or Inguinal Adenopathy Neurological: Cranial nerves II-XII grossly intact, Motor Exam 5/5 strength throughout Psych/Mental Status: Normal Affect, Appropriate, Alert and oriented to time, place, person, mood and affect Vital Signs Temp Pulse Resp BP Pulse Ox 98.2 F 94 95 H 129/67 H 95 11/10/17 08:00 11/10/17 08:00 11/10/17 08:00 11/10/17 08:00 11/10/17 07:10 Oxygen Delivery Method Room Air Weight: 204 lb 12.951 oz Body Mass Index (BMI) 34.1 Intake and Output for Last 24 Hours 11/08/17 11/09/17 11/10/17 23:59 23:59 23:59 Intake Total 698.5 / 698.5 1423 / 1423 396 / 396 Output Total 500 / 500 Balance 698.5 / 698.5 1423 / 1423 -104 / -104 Microbiology Past 72 Hours 11/07/17 08:30 Gram Stain - Final Wound - Leg, Left Wound Culture - Preliminary Gram positive robbin Laboratory Tests Past 24 Hrs 11/10/17 11/10/17 05:38 05:38 WBC 5.8 RBC 3.51 L Hgb 9.7 L Hct 30.8 L MCV 87.7 MCH 27.6 MCHC 31.5 L RDW 15.2 H RDW Differential 48.1 H Plt Count 203 MPV 9.9 Sodium 138 Potassium 4.0 Chloride 104 Carbon Dioxide 24.0 Anion Gap 10 BUN 20 H Creatinine 1.31 H Estim Creat Clear Calc 39.77 Est GFR (MDRD) Af Amer 68 Est GFR (MDRD) Non-Af 56 L BUN/Creatinine Ratio 15.3 Glucose 140 H Calcium 8.3 L Medical Necessity - Tobacco Use Smoking Status: Never smoker Assessment/Plan All Active Problems Cellulitis of left leg (Acute) This is a 77 years old male patient admitted because of left leg pain and fever, found to have acute left leg cellulitis in context of history of penetrating injury to the left leg that was complicated by infection and abscess, status post incision and wide debridement as well as wound VAC insertion. #1 acute left leg cellulitis: In context of history of penetrating left leg injury, complicated by infection, cellulitis and abscess of the left lower extremity, underwent incision and wide debridement on August,, status post wound VAC insertion on September 17, 2017. He is on IV Zosyn. His vital signs are stable, has been afebrile for more than 72 hours. Blood culture showed no growth in 48 hours. Wound culture revealed gram-positive rods, final is pending. Infectious disease on the case. He has been following up with the wound care center as well as Dr. Hinds, pending for possible skin graft in the near future. Plan: Continue same treatment, possible DC home later today. #2 chronic anemia: Baseline hemoglobin around 9-11 g/dL. Today's hemoglobin is 9.7 g/dL, stable at baseline. His iron deficiency anemia. Plan to continue iron supplement. #3 hypertension: Blood pressure stable, continue lisinopril. #4 bronchial asthma: Clinically stable, maintaining pulse ox on room air. Continue DuoNeb, albuterol, Pulmicort and Singulair. #5 GERD: Continue PPI. #6 depression: Continue Zoloft. #7 hyperlipidemia: Continue statins. #8 DVT prophylaxis: Subcu heparin. This note was generated with [employer] software. It may contain incorrect words, spelling, and punctuation that were not noted in checking the note before signing.
--- NOTE | 2017-11-10 09:21 | NURSING ---
wound photo: left lower leg
--- NOTE | 2017-11-10 12:36 | PCM.PN.ID ---
Patient Problems: Active and Suspected Problems Cellulitis of left leg (Acute) Subjective: Feeling well, no fever, no leg pain, no n/v/d. - Physical Exam General: Alert, Cooperative, No apparent distress Lungs: Clear to auscultation, Normal air movement Cardiovascular: Regular rate, Regular Rhythm Abdomen: Soft, Non Tender, Non-Distended Skin: Ulcer/ Wound - L cota minimal redness surrounding wound Vital Signs Temp Pulse Resp BP Pulse Ox 98.2 F 94 95 H 129/67 H 95 11/10/17 08:00 11/10/17 08:00 11/10/17 08:00 11/10/17 08:00 11/10/17 07:10 Oxygen Delivery Method Room Air Weight: 92.9 kg Body Mass Index (BMI) 34.1 Intake and Output for Last 24 Hours 11/08/17 11/09/17 11/10/17 23:59 23:59 23:59 Intake Total 698.5 / 698.5 1423 / 1423 396 / 396 Output Total 500 / 500 Balance 698.5 / 698.5 1423 / 1423 -104 / -104 Microbiology Past 72 Hours 11/07/17 08:30 Gram Stain - Final Wound - Leg, Left Wound Culture - Preliminary Gram positive robbin Streptococcus agalactiae (B) Laboratory Tests Past 24 Hrs 11/10/17 11/10/17 05:38 05:38 WBC 5.8 RBC 3.51 L Hgb 9.7 L Hct 30.8 L MCV 87.7 MCH 27.6 MCHC 31.5 L RDW 15.2 H RDW Differential 48.1 H Plt Count 203 MPV 9.9 Sodium 138 Potassium 4.0 Chloride 104 Carbon Dioxide 24.0 Anion Gap 10 BUN 20 H Creatinine 1.31 H Estim Creat Clear Calc 39.77 Est GFR (MDRD) Af Amer 68 Est GFR (MDRD) Non-Af 56 L BUN/Creatinine Ratio 15.3 Glucose 140 H Calcium 8.3 L Medical Necessity - Tobacco Use Smoking Status: Never smoker Route of nutrition/ use of supplements: [] Nutritional Intake: [] IV Site: [] [place] Catheter: [] - Assessment/Plan Antibiotics: [] Assessment/Plan: [] Active and Suspected Problems Cellulitis of left leg (Acute) Fever (Acute) Cxs with GBS and GPR Staph pcr neg. Prior cxs with citro, enterococcus, bacillus. Ok for d/c home on 1 week po augmentin. Rx sent in. D/w Dr. Wyman.
[2017-11-10 12:58] VITALS: PULSE 82; RESP 16
[2017-11-10] MEDS: 0.9% NaCl Peripheral Flush Adult/Peds IV (13:01)
--- NOTE | 2017-11-10 13:32 | PCM.DC ---
- Discharge Diagnoses Current Active Problems: Current Active and Chronic Problems Cellulitis of left leg (Acute) You will use the following diet at home:: No restrictions Your food should be the consistency of: Regular Discharge Activity: Return to Normal Activity Weight Bearing Status: Weight bearing as tolerated Call your doctor if you observe: Fever of 101 or Higher, Shortness of breath, Dizziness, Fainting spells, Chest pain, Increased palpitations (irregular heartbeat), Uncontrolled pain Additional Instructions: Follow-up with the wound care center. Allergies/Adverse Reactions: Allergies indomethacin [From Indocin] Allergy (Verified 11/06/17 14:54) Itching indomethacin sodium [From Indocin] Allergy (Verified 11/06/17 14:54) Itching oxycodone HCl [From Percocet] Allergy (Verified 11/06/17 14:54) Itching Medications to take at Discharge Albuterol Sulfate [Proventil Hfa] 2 puff IH BID 07/13/13 Azelastine HCl [Astelin] 2 spray NASAL BID 07/13/13 Fluticasone 0.05% [Flonase Nasal [place]] 2 spray NASAL BID 07/13/13 Montelukast [Singulair] 10 mg PO QHS 07/13/13 Sertraline HCl [Zoloft] 150 mg PO DAILY 07/13/13 Tiotropium [place] [Spiriva 18 MCG] 1 puff INHALATION DAILY 07/13/13 Atorvastatin Calcium [Lipitor] 10 mg PO QHS 10/26/14 Lisinopril [Zestril] 20 mg PO DAILY 10/26/14 Ferrous Sulfate 325 mg PO BID 07/14/15 Multivitamin [Daily Multiple Vitamin] 1 each PO DAILY 07/14/15 Omeprazole [Prilosec] 20 mg PO DAILY 07/14/15 Polyethylene Glycol 3350 [Miralax] 17 gm PO DAILY PRN 07/14/15 Ipratropium [Atrovent Aerosols] 0.5 mg INHALATION 4X/DAY PRN 09/03/16 Guaifenesin [Mucinex] 600 mg PO BID 01/12/17 Fluticasone/Salmeterol [Advair Hfa 230-21 Mcg Inhaler] 2 puff INHALATION BID 06/22/17 Nystatin/Triamcin Cream [Mycolog] 1 applic TOPICAL BID PRN 02/04/18 Hydrocodone Bitart/Apap 5-325 [[place] 5/325] 1 tab PO Q4H PRN PRN #20 tab 09/16/17 Lactobacillus Acidophilus [Acidophilus] 2 tab PO TID #30 tab 09/16/17 Amoxicillin/Potassium Clav [Augmentin 875-125 Tablet] 1 ea PO BID 7 Days #14 tab 11/10/17 The following prescriptions were given: Amoxicillin/Potassium Clav [Augmentin 875-125 Tablet] 1 ea PO BID 7 Days #14 tab Primary Care Physician: Lambert Larios MD [Primary Care Provider] - Please follow up with your Primary Care Physician in: 1 WEEK. Please Follow Up With: Jaime Hinds MD When: Please call his office.
--- NOTE | 2017-11-10 13:44 | CASEMGMT ---
Patient has order for discharge today. Patient to resume HHC with [facility]. RN LIZY updated [facility] regarding resumption of care. RN CM updated patient, no questions regarding discharge plans. RN CM will continue to follow this patient and plan a safe discharge.
[2017-11-10 14:00] VITALS: BP 122/62; PULSE 90; RESP 18; TEMP 36.7; O2SAT 95
--- NOTE | 2017-11-10 15:45 | PCM.DC.SUM ---
Discharge Date and Diagnosis Date of Admission: 11/06/17 - Primary Discharge Diagnosis Strep agalactiae/gram-positive rods acute left leg cellulitis in context of history of penetrating injury of the left leg with chronic nonhealing wounds. 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) Iron deficiency anemia (Chronic) Pulmonary nodule (Chronic) HLD (hyperlipidemia) (Chronic) Diverticulosis (Chronic) Asthma (Chronic) Hypertension (Chronic) Osteoarthritis (Chronic) Penetrating injury right leg (Chronic) History of prostate cancer (Chronic) Allergic rhinitis (Chronic) Rheumatoid arthritis (Chronic) Pleural plaque (Chronic) Macular degeneration (Chronic) GERD (gastroesophageal reflux disease) (Chronic) Hospital Course and Treatment Imaging Results: Clinical Impression(s) from Imaging Studies Chest X-Ray 11/06/17 17:00 IMPRESSION: Mild interstitial thickening in the lower lobes with chronic calcific pleural plaquing. No acute cardiopulmonary pathology Electronically Signed: Chapo Samuel MD at 17:22 EDT , Service support , Consultations 11/06/17 18:56 Consult: Onc/Wound/safety and health manager Routine Comment: Dr. mckenna, infectious disease. Operations: None, - Procedures: None Summary of Care Provided: The patient is a 77 year old M admitted because of left leg pains and fever and he was found to have acute left leg cellulitis. He had a penetrating injury to the left leg was complicated by infection, abscess and cellulitis, underwent incision, wide debridement on September 12, 2017 and insertion of wound VAC on September 17, 2017. On admission, patient was febrile and had local erythema around the chronic left leg wound. He was treated with IV Zosyn and IV fluids. There was no evidence of sepsis or severe sepsis. Venous Doppler of both lower extremities revealed no evidence of acute DVT. His routine blood work was unremarkable. With IV antibiotic therapy, local erythema of the left leg improved. On the day of discharge, the wound VAC taken off and there was good formation of granulation tissue on the wound of the left leg with good blood supply. Blood culture showed no growth in 48 hours. Wound culture revealed Streptococcus agalactiae and gram-positive rods. Infectious disease consulted and recommended to discharge patient on Augmentin for 1 week of treatment. Patient has been following up with the wound care center as outpatient and he was referred to Dr. Hinds as outpatient for skin graft. Patient discharged home in a stable medical condition, discharged on Augmentin twice daily for 1 week, continued on his chronic home medication without any changes, plan to follow-up with PCP in 1 week, follow-up with Dr. Hinds for skin graft as outpatient in the near future. Discharge Activity: Return to Normal Activity Weight Bearing Status: Weight bearing as tolerated Call your doctor if you observe: Fever of 101 or Higher, Shortness of breath, Dizziness, Fainting spells, Chest pain, Increased palpitations (irregular heartbeat), Uncontrolled pain Home Medications: Medications to take at Discharge Albuterol Sulfate [Proventil Hfa] 2 puff IH BID 07/13/13 Azelastine HCl [Astelin] 2 spray NASAL BID 07/13/13 Fluticasone 0.05% [Flonase Nasal [place]] 2 spray NASAL BID 07/13/13 Montelukast [Singulair] 10 mg PO QHS 07/13/13 Sertraline HCl [Zoloft] 150 mg PO DAILY 07/13/13 Tiotropium [place] [Spiriva 18 MCG] 1 puff INHALATION DAILY 07/13/13 Atorvastatin Calcium [Lipitor] 10 mg PO QHS 10/26/14 Lisinopril [Zestril] 20 mg PO DAILY 10/26/14 Ferrous Sulfate 325 mg PO BID 07/14/15 Multivitamin [Daily Multiple Vitamin] 1 each PO DAILY 07/14/15 Omeprazole [Prilosec] 20 mg PO DAILY 07/14/15 Polyethylene Glycol 3350 [Miralax] 17 gm PO DAILY PRN 07/14/15 Ipratropium [Atrovent Aerosols] 0.5 mg INHALATION 4X/DAY PRN 09/03/16 Guaifenesin [Mucinex] 600 mg PO BID 01/12/17 Fluticasone/Salmeterol [Advair Hfa 230-21 Mcg Inhaler] 2 puff INHALATION BID 06/22/17 Nystatin/Triamcin Cream [Mycolog] 1 applic TOPICAL BID PRN 06/22/17 Hydrocodone Bitart/Apap 5-325 [[place] 5/325] 1 tab PO Q4H PRN PRN #20 tab 09/16/17 Lactobacillus Acidophilus [Acidophilus] 2 tab PO TID #30 tab 09/16/17 Amoxicillin/Potassium Clav [Augmentin 875-125 Tablet] 1 ea PO BID 7 Days #14 tab 11/10/17 Following Prescrptions Were Given to Patient: Amoxicillin/Potassium Clav [Augmentin 875-125 Tablet] 1 ea PO BID 7 Days #14 tab Primary Care Physician: Lambert Larios MD [Primary Care Provider] - Please follow up with your Primary Care Physician in: 1 WEEK. Please Follow Up With: Jaime Hinds MD When: Please call his office. Disposition: Home Minutes spent on discharge:: 32 Patient Condition:: Stable Medical Necessity - Tobacco Use Smoking Status: Never smoker Meaningful Use Info Meaningful Use Diagnoses (Choose all that apply): None applicable Code Visit Inpatient E&M: 19832 Disch Hosp
--- NOTE | 2017-11-10 15:55 | DS.PCM_ITS ---
Discharge Date and Diagnosis Date of Admission: 11/06/17 - Primary Discharge Diagnosis Strep agalactiae/gram-positive rods acute left leg cellulitis in context of history of penetrating injury of the left leg with chronic nonhealing wounds. 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) Iron deficiency anemia (Chronic) Pulmonary nodule (Chronic) HLD (hyperlipidemia) (Chronic) Diverticulosis (Chronic) Asthma (Chronic) Hypertension (Chronic) Osteoarthritis (Chronic) Penetrating injury right leg (Chronic) History of prostate cancer (Chronic) Allergic rhinitis (Chronic) Rheumatoid arthritis (Chronic) Pleural plaque (Chronic) Macular degeneration (Chronic) GERD (gastroesophageal reflux disease) (Chronic) Hospital Course and Treatment Imaging Results: Clinical Impression(s) from Imaging Studies Chest X-Ray 11/06/17 17:00 IMPRESSION: Mild interstitial thickening in the lower lobes with chronic calcific pleural plaquing. No acute cardiopulmonary pathology Electronically Signed: Chapo Samuel MD at 17:22 EDT , Service support , Consultations 11/06/17 18:56 Consult: Onc/Wound/practice billing associate Routine Comment: Dr. mckenna, infectious disease. Operations: None, - Procedures: None Summary of Care Provided: The patient is a 77 year old M admitted because of left leg pains and fever and he was found to have acute left leg cellulitis. He had a penetrating injury to the left leg was complicated by infection, abscess and cellulitis, underwent incision, wide debridement on September 12, 2017 and insertion of wound VAC on September. On admission, patient was febrile and had local erythema around the chronic left leg wound. He was treated with IV Zosyn and IV fluids. There was no evidence of sepsis or severe sepsis. Venous Doppler of both lower extremities revealed no evidence of acute DVT. His routine blood work was unremarkable. With IV antibiotic therapy, local erythema of the left leg improved. On the day of discharge, the wound VAC taken off and there was good formation of granulation tissue on the wound of the left leg with good blood supply. Blood culture showed no growth in 48 hours. Wound culture revealed Streptococcus agalactiae and gram-positive rods. Infectious disease consulted and recommended to discharge patient on Augmentin for 1 week of treatment. Patient has been following up with the wound care center as outpatient and he was referred to Dr. Hinds as outpatient for skin graft. Patient discharged home in a stable medical condition, discharged on Augmentin twice daily for 1 week, continued on his chronic home medication without any changes, plan to follow-up with PCP in 1 week, follow-up with Dr. Hinds for skin graft as outpatient in the near future. Discharge Activity: Return to Normal Activity Weight Bearing Status: Weight bearing as tolerated Call your doctor if you observe: Fever of 101 or Higher, Shortness of breath, Dizziness, Fainting spells, Chest pain, Increased palpitations (irregular heartbeat), Uncontrolled pain Home Medications: Medications to take at Discharge Albuterol Sulfate [Proventil Hfa] 2 puff IH BID 07/13/13 Azelastine HCl [Astelin] 2 spray NASAL BID 07/13/13 Fluticasone 0.05% [Flonase Nasal [place]] 2 spray NASAL BID 07/13/13 Montelukast [Singulair] 10 mg PO QHS 07/13/13 Sertraline HCl [Zoloft] 150 mg PO DAILY 07/13/13 Tiotropium [place] [Spiriva 18 MCG] 1 puff INHALATION DAILY 07/13/13 Atorvastatin Calcium [Lipitor] 10 mg PO QHS 10/26/14 Lisinopril [Zestril] 20 mg PO DAILY 10/26/14 Ferrous Sulfate 325 mg PO BID 07/14/15 Multivitamin [Daily Multiple Vitamin] 1 each PO DAILY 07/14/15 Omeprazole [Prilosec] 20 mg PO DAILY 07/14/15 Polyethylene Glycol 3350 [Miralax] 17 gm PO DAILY PRN 07/14/15 Ipratropium [Atrovent Aerosols] 0.5 mg INHALATION 4X/DAY PRN 09/03/16 Guaifenesin [Mucinex] 600 mg PO BID 01/12/17 Fluticasone/Salmeterol [Advair Hfa 230-21 Mcg Inhaler] 2 puff INHALATION BID 09/03 Nystatin/Triamcin Cream [Mycolog] 1 applic TOPICAL BID PRN 06/22/17 Hydrocodone Bitart/Apap 5-325 [[place] 5/325] 1 tab PO Q4H PRN PRN #20 tab Lactobacillus Acidophilus [Acidophilus] 2 tab PO TID #30 tab 09/16/17 Amoxicillin/Potassium Clav [Augmentin 875-125 Tablet] 1 ea PO BID 7 Days #14 tab 11/10/17 Following Prescrptions Were Given to Patient: Amoxicillin/Potassium Clav [Augmentin 875-125 Tablet] 1 ea PO BID 7 Days #14 tab Primary Care Physician: Lambert Larios MD [Primary Care Provider] - Please follow up with your Primary Care Physician in: 1 WEEK. Please Follow Up With: Jaime Hinds MD When: Please call his office. Disposition: Home Minutes spent on discharge:: 32 Patient Condition:: Stable Medical Necessity - Tobacco Use Smoking Status: Never smoker Meaningful Use Info Meaningful Use Diagnoses (Choose all that apply): None applicable Code Visit Inpatient E&M: 01280 Disch Hosp
--- NOTE | 2017-11-11 15:56 | CASEMGMT ---
ROSY MEDEL Discharge Follow-up Phone Call: SABA: Dandre Strata: 4 Call Date: 11/11/17 Discharge Date: 11/10/17 Time of Call: 1600 Duration: 3 min Admitting Diagnosis: Cellulitis ROSY MEDEL completed follow-up phone call at this time. Patient's states that he is doing well. Patient went to wound center today and changed dressing, state it is looking well. states that they were able to bead picker prescriptions without problems. concerned when [facility] would be coming out. ROSY MEDEL called and updated Aicha at [facility]. Aicha stated that she would follow-up with patient.
== END 2017-11-10 15:20 | disposition home health service (06) | DRG 572 ==
LOC: ED 17:17 → MS3 18:27
PROVIDERS: Internal Medicine; Admitting Provider Hospitalist; Emergency Provider Emergency Medicine; Family Provider Internal Medicine; PCP Internal Medicine; Visit Provider Hospitalist
DX: L03.116 Cellulitis of left lower limb (principal); S81.812A Laceration without foreign body, left lower leg, initial encounter; I10 Essential (primary) hypertension; J45.30 Mild persistent asthma, uncomplicated; D50.9 Iron deficiency anemia, unspecified; Z86.711 Personal history of pulmonary embolism; S81.802A Unspecified open wound, left lower leg, initial encounter; B95.1 Streptococcus, group B, as the cause of diseases classified elsewhere; B96.89 Other specified bacterial agents as the cause of diseases classified elsewhere; E78.5 Hyperlipidemia, unspecified; M19.90 Unspecified osteoarthritis, unspecified site; Z85.46 Personal history of malignant neoplasm of prostate; M06.9 Rheumatoid arthritis, unspecified; H35.30 Unspecified macular degeneration; K21.9 Gastro-esophageal reflux disease without esophagitis; K57.90 Diverticulosis of intestine, part unspecified, without perforation or abscess without bleeding; R91.1 Solitary pulmonary nodule; W27.8XXA Contact with other nonpowered hand tool, initial encounter
CPT/HCPCS: 36415; 71046; 80048; 80053; 82962; 83605; 85025; 85027; 85610; 85730; 87040; 87070; 87077; 87186; 87205; 87640; 93005; 93970; 94640; 97606; 99212; 99213; 99285; J7050; A4216; G0463

== ENCOUNTER 2017-11-11 11:00 | Outpatient (RCR) | payer MEDICARE, SELFPAY ==
[2017-10-17 01:08] VITALS: BP 135/69; PULSE 111; RESP 18; TEMP 36.6
[2017-10-31 10:15] VITALS: BP 131/74; PULSE 99; RESP 18; TEMP 36.8
--- NOTE | 2017-10-31 10:52 | PCM.WC.PN ---
(1) 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 Status: Acute Current Visit: Yes Code(s): L97.929 - Non-pressure chronic ulcer of unspecified part of left lower leg with unspecified severity; L08.9 - Local infection of the skin and subcutaneous tissue, unspecified (2) Avulsion of skin of right lower leg Status: Acute Current Visit: Yes Qualifiers: Encounter type: subsequent encounter Code(s): S81.801A - Unspecified open wound, right lower leg, initial encounter (3) Cellulitis of left leg Status: Acute Current Visit: Yes Code(s): L03.116 - Cellulitis of left lower limb (4) Leg swelling Status: Acute Current Visit: Yes Code(s): M79.89 - Other specified soft tissue disorders (5) Open wound Status: Acute Current Visit: Yes Code(s): T14.8 - Other injury of unspecified body region (6) Open wound of left lower leg Status: Acute Current Visit: Yes Qualifiers: Encounter type: subsequent encounter Code(s): S81.802A - Unspecified open wound, left lower leg, initial encounter (7) Traumatic open wound of left lower leg Status: Acute Current Visit: Yes Qualifiers: Encounter type: subsequent encounter Code(s): S81.802A - Unspecified open wound, left lower leg, initial encounter (8) Anemia Status: Acute Current Visit: Yes Qualifiers: Anemia type: iron deficiency Code(s): D64.9 - Anemia, unspecified Type of Wound Date of Service: 10/31/17 Chief Complaint: Recent traumatic injury of the left lower extremity with residual open wound History of Wound: This is a 77-year-old male who was in his normal state of health until September 06, 2017, at which time he sustained an injury to the left lateral calf, the result of a shovel which impaled into his left leg. The patient was rushed to the emergency department on that date, where he was treated by means of wound closure using sutures. Four days later, he had developed a cellulitis, and was admitted to the hospital for treatment. Patient was treated with antibiotics, and subsequently underwent wide surgical debridement of necrotic tissue by Dr. Homero Chin on September 12, 2017. Patient was discharged on September 16, 2017. He was discharged on Cipro 500 mg p.o. twice daily and Augmentin 875 mg p.o. twice daily. At the time of discharge, arrangements were made for the wound VAC to be the means of treatment, which has been changed every several days by home health nursing personnel. She presents at this time for further evaluation and management on an outpatient basis. The patient had been on Xarelto and treatment for a pulmonary embolism which was diagnosed in January 2017. As result of his injury, the Xarelto has been discontinued. A noninvasive lower extremity arterial study performed in August 2016 revealed no evidence of arterial occlusive disease in the lower extremities. Therefore, there is no reason to believe there is since of any significant arterial occlusive disease. Review of the patient's recent laboratory studies, while hospitalized, reveal the following: White blood count 5.9, hemoglobin 9.3, hematocrit 29.1, platelets 311,000, sodium 137, potassium 4.4, chloride 105, BUN 12, creatinine 1.04, glucose 117, albumin 2.7, total protein 6.8, calcium 8.8, hemoglobin A1c 7.7, magnesium 2.0, total bilirubin 0.30. Progress of Wound: Today the wound looks beefier and the measurements are slightly smaller on the wound vac. Patient is to folow up with Dr Hinds for possibly a flap. Cultues came back positive was start on doxycycline . No anerobes noted. Will allso increase the wound vac pressure to 175 mmhg - Physical Exam Vital Signs Temp Pulse Resp BP 98.2 F 99 18 131/74 H 10/31/17 10:15 10/31/17 10:15 10/31/17 10:15 10/31/17 10:15 General: Oriented x3, Cooperative, Well developed HEENT: Atraumatic, PERRLA Oral: Moist Mucosa Neck: Supple, No JVD Lungs: Clear to auscultation, Normal air movement Cardiovascular: Regular rate, Regular Rhythm Abdomen: Bowel Sounds Present, Soft, Non Tender, No Hepato-splenomegaly Extremities: No clubbing, No edema Skin: Ulcer/ Wound - Left lateral avulsion laceration Wound Measurements and Assessment WC - Nurse 1 - General Ulcer Measurement Start: 10/31/17 10:07 Freq: Status: Active Protocol: Activity Type Activity Date Activity User E-Sign Co-Sign Detail Recorded Client Recorded Date Recorded By Document 10/31/17 10:15 JODI [id number] 10/31/17 10:33 JODI 10/31/17 10:15 Wound Center Nurse 1 [Ulcer Assessment] #7 LATERAL LLE- POST OP 09/12/17 -Current Size (cm) - Length 22.0 -Current Size (cm) - Width 4.3 -Current Size (cm) - Depth 0.1 -Total Square Cm 94.60 -Date of Last Picture (Recall this 10/22/17 field) -Photo Taken No -Epithelialization Small 1-33% -Tunneling No -Undermining/Tunneling No -Circular Undermining No -Classification - Thickness Full Thickness without Exposed Support Structure -Change in Wound Grade/Stage No Query Text:If change please identify the Stage/Grade in the comment (ie. S2 G3) -Exudate Amt Large (67-100%) -Exudate Type Serosanguineous -Wound Margin Distinct, Outline Attached -Granulation Amt Large (67-100%) -Granulation Quality Red -Slough/Fibrin Yes -Necrosis Amt None Present (0 %) -Necrotic Tissue Type Adherent Slough -Structure Exposed Fat Layer Exposed -Texture (Karin-wound Skin Appearance) No Abnormality -Moisture (Karin-wound Skin Appearance No Abnormality ) -Color (Karin-wound Skin Appearance) No Abnormality -Temperature (Karin-wound Skin No Abnormality Appearance) (Pt Warm) -Tenderness on Palpation (Karin-wound No Skin Appearance) -Ulcer Cleansing DYNAHEX -Foul Odor after Cleansing No -Anesthetic Used 4% Lidocaine Solution [Edema Assessment] -Lower Limb Edema Present No -Left Calf (cm) 38.0 -Left Ankle (cm) 24.0 Musculoskeletal: No Tenderness to Palpation of Joints or Extremities Lymphatic: No Cervical, Supraclavicular, or Inguinal Adenopathy Neurological: Cranial nerves II-XII grossly intact, Neuro grossly intact Psych/Mental Status: Normal Affect, Appropriate, Alert and oriented to time, place, person, mood and affect Debridement Note Wound debrided: Lateral lower leg avulsion laceration ulcer Laterality: Left Type of Debridement: Excisional debridement Anesthesia Used: 5% Lidocaine Gel Depth: Down to and including healthy tissue, in the subcutaneous layer Instrument Used: 7mm curette Tissue Removed: Fibrin Severity: Limited To Skin Breakdown Amount of bleeding with debridement: Moderate Bleeding Controlled with: Compression and gauze Patient tolerated procedure well Assessment/Plan Active Problems Cellulitis of left leg (Acute) Leg swelling (Acute) 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 (Acute) Anemia (Acute) Traumatic open wound of left lower leg (Acute) Open wound of left lower leg (Acute) Open wound (Acute) Avulsion of skin of right lower leg (Acute) Assessment: Traumatic laceration to the L lat leg. blood thinners d/c. ulcer dehisciced. postop ulvcer after debridement. Anemia Plan: Current measures are to be continued. Wound VAC will be increased to 1 75 mmHg with change of the wound VAC every several days, with assistance of home health nursing personnel. Patient will return in approximately 1 week for reassessment. Eventually Patient will be transfer of care to Dr Hinds. Intake of a well-balanced and nutritious diet has been advised. Patient has been advised to elevate his lower extremities, to minimize swelling and edema. Continue increasing iron supplements to twice daily daily. Follow-up one week
[2017-11-04 10:39] VITALS: BP 145/74; PULSE 87; RESP 18; TEMP 36.6
--- NOTE | 2017-11-04 11:26 | PCM.WC.HP ---
(1) Traumatic wound Status: Acute Current Visit: Yes (2) Open wound of left lower extremity Status: Acute Current Visit: Yes Qualifiers: Encounter type: subsequent encounter Qualified Code(s): S81.802D - Unspecified open wound, left lower leg, subsequent encounter Code(s): S81.802A - Unspecified open wound, left lower leg, initial encounter (3) Leg swelling Status: Acute Current Visit: Yes Code(s): M79.89 - Other specified soft tissue disorders (4) History of pulmonary embolism Status: Chronic Current Visit: No Code(s): Z86.711 - Personal history of pulmonary embolism (5) HLD (hyperlipidemia) Status: Chronic Current Visit: No Code(s): E78.5 - Hyperlipidemia, unspecified (6) Asthma Status: Chronic Current Visit: No Code(s): J45.909 - Unspecified asthma, uncomplicated (7) Hypertension Status: Chronic Current Visit: No Qualifiers: Code(s): I10 - Essential (primary) hypertension (8) Traumatic open wound of left lower leg Status: Acute Current Visit: Yes Qualifiers: Encounter type: subsequent encounter Code(s): S81.802A - Unspecified open wound, left lower leg, initial encounter (9) Open wound of left lower leg Status: Acute Current Visit: Yes Qualifiers: Encounter type: subsequent encounter Code(s): S81.802A - Unspecified open wound, left lower leg, initial encounter (10) Open wound Status: Acute Current Visit: Yes Code(s): T14.8 - Other injury of unspecified body region (11) Obesity Status: Chronic Current Visit: No Code(s): E66.9 - Obesity, unspecified (12) Osteoarthritis Status: Chronic Current Visit: No (13) History of prostate cancer Status: Chronic Current Visit: No Code(s): Z85.46 - Personal history of malignant neoplasm of prostate (14) Macular degeneration Status: Chronic Current Visit: No Code(s): H35.30 - Unspecified macular degeneration (15) GERD (gastroesophageal reflux disease) Status: Chronic Current Visit: No Code(s): K21.9 - Gastro-esophageal reflux disease without esophagitis (16) Prostate ca Status: Chronic Current Visit: No Code(s): C61 - Malignant neoplasm of prostate History of Present Illness Date of Service: 11/04/17 Chief Complaint: Recent traumatic injury of the left lower extremity with residual open wound History of Wound: This is a 77-year-old male who was in his normal state of health until September 06, 2017, at which time he sustained an injury to the left lateral calf, the result of a shovel which impaled into his left leg. The patient was rushed to the emergency department on that date, where he was treated by means of wound closure using sutures. Four days later, he had developed a cellulitis, and was admitted to the hospital for treatment. Patient was treated with antibiotics, and subsequently underwent wide surgical debridement of necrotic tissue by Dr. Homero Chin on September 12, 2017. Patient was discharged on September 16, 2017. He was discharged on Cipro 500 mg p.o. twice daily and Augmentin 875 mg p.o. twice daily. At the time of discharge, arrangements were made for the wound VAC to be the means of treatment, which has been changed every several days by home health nursing personnel. The patient had been on Xarelto and treatment for a pulmonary embolism which was diagnosed in January 2017. As result of his injury, the Xarelto has been discontinued. A noninvasive lower extremity arterial study performed in August 2016 revealed no evidence of arterial occlusive disease in the lower extremities. Therefore, there is no reason to believe there is since of any significant arterial occlusive disease. Review of the patient's recent laboratory studies, while hospitalized, revealed the following: White blood count 5.9, hemoglobin 9.3, hematocrit 29.1, platelets 311,000, sodium 137, potassium 4.4, chloride 105, BUN 12, creatinine 1.04, glucose 117, albumin 2.7, total protein 6.8, calcium 8.8, hemoglobin A1c 7.7, magnesium 2.0, total bilirubin 0.30. Patient has done well, showing progress with the use of the wound VAC. Past Medical History Past Medical History: Chronic Problems History of pulmonary embolism (Chronic) Iron deficiency anemia (Chronic) Pulmonary nodule (Chronic) HLD (hyperlipidemia) (Chronic) Diverticulosis (Chronic) Asthma (Chronic) Hypertension (Chronic) Avulsion of skin (Chronic) Avulsion of skin of hand (Chronic) Obesity (Chronic) Osteoarthritis (Chronic) Penetrating injury right leg (Chronic) Pain in right leg (Chronic) Right leg swelling (Chronic) History of prostate cancer (Chronic) Allergic rhinitis (Chronic) Rheumatoid arthritis (Chronic) Pleural plaque (Chronic) Macular degeneration (Chronic) GERD (gastroesophageal reflux disease) (Chronic) Prostate ca (Chronic) Surgical History: - - Umbilical hernia repair, appendectomy, bilateral carpal tunnel surgery, Prostatectomy, Cataract surgery, L lens implant, L knee surgery followed by LTKR, L shoulder surgery, left total hip replacement. Allergies/Adverse Reactions: Allergies indomethacin [From Indocin] Allergy (Verified 09/09/17 22:56) Itching indomethacin sodium [From Indocin] Allergy (Verified 09/09/17 22:56) Itching oxycodone HCl [From Percocet] Allergy (Verified 09/09/17 22:56) Itching Home Medications: Ambulatory Orders Medication Instructions Recorded Albuterol Sulfate [Proventil Hfa] 2 puff IH BID 07/13/13 Azelastine HCl [Astelin] 2 spray NASAL BID 07/13/13 Fluticasone 0.05% [Flonase Nasal 2 spray NASAL BID 07/13/13 [place]] Montelukast [Singulair] 10 mg PO QHS 07/13/13 Sertraline HCl [Zoloft] 150 mg PO DAILY 07/13/13 Tiotropium Lehr [Spiriva 18 MCG] 1 puff INHALATION DAILY 07/13/13 Atorvastatin Calcium [Lipitor] 10 mg PO QHS 10/26/14 Lisinopril [Zestril] 20 mg PO DAILY 10/26/14 Ferrous Sulfate 325 mg PO BID 07/14/15 Multivitamin [Daily Multiple 1 each PO DAILY 07/14/15 Vitamin] Omeprazole [Prilosec] 20 mg PO DAILY 07/14/15 Polyethylene Glycol 3350 [Miralax] 17 gm PO DAILY PRN 07/14/15 Ipratropium [Atrovent] 0.5 mg INHALATION 4X/DAY PRN 09/03/16 Guaifenesin [Mucinex] 600 mg PO BID 01/12/17 Rivaroxaban [Xarelto] 20 mg PO DAILY 01/31/17 Fluticasone/Salmeterol [Advair Hfa 2 puff INHALATION BID 06/22/17 230-21 Mcg Inhaler] Nystatin/Triamcin Cream [Mycolog] 1 applic TOPICAL BID PRN 06/22/17 Amox/Clavulanate Tablet [Augmentin 875 mg PO BID #14 tab 05/01/18 Tablet] Ciprofloxacin [Cipro] 500 mg PO BID #14 tab 09/16/17 Glucagon 1 mg IM .X1 PRN syringe 09/16/17 Hydrocodone Bitart/Apap 5-325 1 tab PO Q4H PRN PRN #20 tab 09/16/17 [[place] 5/325] Lactobacillus Acidophilus 2 tab PO TID #30 tab 09/16/17 [Acidophilus] Leflunomide 10 mg PO DAILY tablet 09/16/17 - Family History Sibling Diabetes, Renal Disease, - - Patient's father at the age of 76 with history of colon cancer myocardial infarction. Patient's mother at age of 86 with a history of breast cancer. Maternal Cancer Paternal Cancer Smoking Status: Never smoker Tobacco Use: Non-smoker Review of Systems Constitutional: Denies: Chills, Fever, Weight Change Eyes: Denies: Pain, Vision Change HEENT: Denies: Difficulty Hearing, Difficulty Swallowing, Sinus Congestion Cardiovascular: Denies: Chest Pain, Palpitations Respiratory: Denies: Cough, Shortness of Breath Gastrointestinal: Denies: Diarrhea, Nausea, Vomiting Genitourinary: Denies: Dysuria, Hematuria Endocrine: Denies: Heat/ Cold Intolerance, Polydipsia, Polyuria Hematologic/ Lymphatic: Denies: Easy Bruising, Easy Bleeding - Physical Exam Vital Signs Temp Pulse Resp BP 97.8 F 87 18 145/74 H 11/04/17 10:39 11/04/17 10:39 11/04/17 10:39 11/04/17 10:39 General: Alert, Oriented x3, Cooperative, No apparent distress, Well developed, Well nourished HEENT: Atraumatic, PERRLA, EOMI, Normocephalic, - - The patient has a bandage on his left taoism from recent Mohs surgery. Oral: Moist Mucosa Neck: No JVD Lungs: Normal air movement Abdomen: Non-Distended Extremities: No clubbing, No cyanosis, No Calf Tenderness, - - Mild swelling and edema is noted in the distal left lower extremity. The traumatic wound on the left lateral calf is pink and healthy in appearance, with active granulation tissue. There is evidence of peripheral epithelialization. The base of the wound is pink and healthy, without evidence of infection or cellulitis. Wound dimensions are documented elsewhere. There appears to be no significant bioburden or nonviable tissue. Skin: No rashes Wound Measurements and Assessment WC - Nurse 1 - General Ulcer Measurement Start: 10/31/17 10:07 Freq: Status: Active Protocol: Activity Type Activity Date Activity User E-Sign Co-Sign Detail Recorded Client Recorded Date Recorded By Document 11/04/17 10:39 [facility] [id number] 11/04/17 10:51 [facility] 11/04/17 10:39 Wound Center Nurse 1 [Ulcer Assessment] #7 LATERAL LLE- POST OP 09/12/17 -Combined with other wound No -Current Size (cm) - Length 21.9 -Current Size (cm) - Width 3.9 -Current Size (cm) - Depth 0.1 -Total Square Cm 85.41 -Photo Taken No -Epithelialization Small 1-33% -Tunneling No -Undermining/Tunneling No -Circular Undermining No -Exudate Amt Small (1-33%) -Exudate Type Serosanguineous -Wound Margin Distinct, Outline Attached -Granulation Amt Large (67-100%) -Granulation Quality Red -Slough/Fibrin No -Necrosis Amt None Present (0 %) -Structure Exposed None/Limited to Skin Breakdown -Texture (Karin-wound Skin Appearance) Localized Edema Scarring -Moisture (Karin-wound Skin Appearance Assessed ) -Color (Karin-wound Skin Appearance) Assessed -Temperature (Karin-wound Skin No Abnormality Appearance) (Pt Warm) -Tenderness on Palpation (Karin-wound No Skin Appearance) -Ulcer Cleansing Wound Cleanser -Foul Odor after Cleansing No -Anesthetic Used 4% Lidocaine Solution Musculoskeletal: No Muscle Wasting Neurological: Cranial nerves II-XII grossly intact, Neuro grossly intact Psych/Mental Status: Normal Affect, Appropriate, Alert and oriented to time, place, person, mood and affect Debridement Note Post-Debridement Measurements/Treatment WC - Nurse 2 - General Ulcer CM Notes Start: 10/31/17 10:07 Freq: Status: Active Protocol: Activity Type Activity Date Activity User E-Sign Co-Sign Detail Recorded Client Recorded Date Recorded By Document 10/31/17 10:55 DV [id number] 10/31/17 10:56 DV 10/31/17 10:55 Wound Center Nurse 2 #7 LATERAL LLE- POST OP 09/12/17 -Time 10:56 -Correct Patient Yes -Correct Side, Site, Position Yes -Correct Procedure Yes -Procedure Performed Yes -Type of Procedure Debridement -Clinical Debridement Subcutaneous -Post Debridement Size (cm) - Length 22.0 -Post Debridement Size (cm) - Width 4.0 -Post Debridement Size (cm) - Depth 0.2 -Total Square Cm 88.00 -Wound/Ulcer Outcome Not Healed -Ulcer Cleansing Rinsed/ Irrigated with Saline -Foul Odor after Cleansing No -Bioengineered Tissue No -Bleeding Controlled with Pressure -Treatment Response Procedure Tolerated Well Pain Scale: 0-10 Numeric Is Patient Pain Free? Yes No debridement was completed today Assessment/Plan Active Problems Cellulitis of left leg (Acute) Leg swelling (Acute) 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 (Acute) Anemia (Acute) Traumatic wound (Acute) Open wound of left lower extremity (Acute) Traumatic open wound of left lower leg (Acute) Open wound of left lower leg (Acute) Open wound (Acute) Avulsion of skin of right lower leg (Acute) Assessment: This is a 77-year-old male with a traumatic injury to the left lateral calf. The patient appears to be responding well to the use of the wound VAC, which will be continued. Plan: We are to continue the use of the wound VAC which will be changed several times weekly. Patient has shown significant progress. Wound VAC changes have been assisted by home health nursing personnel. Patient will return in 1 week for reassessment. Intake of a well-balanced and nutritious diet has been advised. Patient has been advised to elevate his lower extremities, to minimize swelling and edema. Continue increasing iron supplements to twice daily daily. Follow-up one week. We will seek consultation with plastic surgery, Dr. Hinds, for consideration of a split thickness skin graft. Given the large size of the patient's traumatic wound, split thickness skin grafting may offer a more expeditious approach to subsequent healing and discharge. Matters in this regard have been discussed with the patient. The patient is not a smoker. Influenza vaccine was not administered today. Patient stands 5 feet 4 inches tall. He weighs 210 pounds. His BMI is 36.0, which places him in a class II category. Weight loss has been recommended, with collaboration with his primary care physician.
[2017-11-11 11:14] VITALS: BP 130/63; PULSE 96; RESP 18; TEMP 36.8
--- NOTE | 2017-11-11 12:39 | HP.PCM_ITS ---
(1) Traumatic wound Status: Acute Current Visit: Yes (2) Open wound of left lower extremity Status: Acute Current Visit: Yes Qualifiers: Encounter type: subsequent encounter Qualified Code(s): S81.802D - Unspecified open wound, left lower leg, subsequent encounter Code(s): S81.802A - Unspecified open wound, left lower leg, initial encounter (3) Leg swelling Status: Chronic Current Visit: Yes Code(s): M79.89 - Other specified soft tissue disorders (4) History of pulmonary embolism Status: Chronic Current Visit: No Code(s): Z86.711 - Personal history of pulmonary embolism (5) HLD (hyperlipidemia) Status: Chronic Current Visit: No Code(s): E78.5 - Hyperlipidemia, unspecified (6) Asthma Status: Chronic Current Visit: No Qualifiers: Asthma severity: moderate Asthma complication type: uncomplicated Code(s): J45.909 - Unspecified asthma, uncomplicated (7) Hypertension Status: Chronic Current Visit: No Qualifiers: Hypertension type: essential hypertension Code(s): I10 - Essential (primary) hypertension (8) Traumatic open wound of left lower leg Status: Acute Current Visit: Yes Qualifiers: Encounter type: subsequent encounter Code(s): S81.802A - Unspecified open wound, left lower leg, initial encounter (9) Open wound of left lower leg Status: Acute Current Visit: Yes Qualifiers: Encounter type: subsequent encounter Qualified Code(s): S81.802D - Unspecified open wound, left lower leg, subsequent encounter Code(s): S81.802A - Unspecified open wound, left lower leg, initial encounter (10) Open wound Status: Acute Current Visit: Yes Code(s): T14.8 - Other injury of unspecified body region (11) Obesity Status: Chronic Current Visit: No Code(s): E66.9 - Obesity, unspecified (12) Osteoarthritis Status: Chronic Current Visit: No (13) History of prostate cancer Status: Chronic Current Visit: No Code(s): Z85.46 - Personal history of malignant neoplasm of prostate (14) Macular degeneration Status: Chronic Current Visit: No Code(s): H35.30 - Unspecified macular degeneration (15) GERD (gastroesophageal reflux disease) Status: Chronic Current Visit: No Code(s): K21.9 - Gastro-esophageal reflux disease without esophagitis (16) Prostate ca Status: Deleted Current Visit: No Code(s): C61 - Malignant neoplasm of prostate History of Present Illness Date of Service: 11/11/17 Chief Complaint: Recent traumatic injury of the left lower extremity with residual open wound History of Wound: This is a 77-year-old male who was in his normal state of health until September 06, 2017, at which time he sustained an injury to the left lateral calf, the result of a shovel which impaled into his left leg. The patient was rushed to the emergency department on that date, where he was treated by means of wound closure using sutures. Four days later, he had developed a cellulitis, and was admitted to the hospital for treatment. Patient was treated with antibiotics, and subsequently underwent wide surgical debridement of necrotic tissue by Dr. Homero Chin on September 12, 2017. Patient was discharged on September 16, 2017. He was discharged on Cipro 500 mg p.o. twice daily and Augmentin 875 mg p.o. twice daily. At the time of discharge, arrangements were made for the wound VAC to be the means of treatment, which has been changed every several days by home health nursing personnel. The patient had been on Xarelto and treatment for a pulmonary embolism which was diagnosed in January 2017. As result of his injury, the Xarelto has been discontinued. A noninvasive lower extremity arterial study performed in August 2016 revealed no evidence of arterial occlusive disease in the lower extremities. Therefore, there is no reason to believe there is since of any significant arterial occlusive disease. Patient has done well, showing progress with the use of the wound VAC., last week the patient developed cellulitis in his left lower extremity associated with fever. He was hospitalized at [facility] for approximately 4 days. He was treated initially with intravenous antibiotics consisting of Zosyn, and was subsequently discharged with a prescription for Augmentin, which continues currently. The wound VAC has been re-implemented. 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) Iron deficiency anemia (Chronic) Pulmonary nodule (Chronic) HLD (hyperlipidemia) (Chronic) Diverticulosis (Chronic) Asthma (Chronic) Hypertension (Chronic) Osteoarthritis (Chronic) Penetrating injury right leg (Chronic) History of prostate cancer (Chronic) Allergic rhinitis (Chronic) Rheumatoid arthritis (Chronic) Pleural plaque (Chronic) Macular degeneration (Chronic) GERD (gastroesophageal reflux disease) (Chronic) Surgical History: - - Umbilical hernia repair, appendectomy, bilateral carpal tunnel surgery, Prostatectomy, Cataract surgery, L lens implant, L knee surgery followed by LTKR, L shoulder surgery, left total hip replacement. Allergies/Adverse Reactions: Allergies indomethacin [From Indocin] Allergy (Verified 11/06/17 14:54) Itching indomethacin sodium [From Indocin] Allergy (Verified 11/06/17 14:54) Itching oxycodone HCl [From Percocet] Allergy (Verified 11/06/17 14:54) Itching Home Medications: Ambulatory Orders Medication Instructions Recorded Albuterol Sulfate [Proventil Hfa] 2 puff IH BID 07/13/13 Azelastine HCl [Astelin] 2 spray NASAL BID 07/13/13 Fluticasone 0.05% [Flonase Nasal 2 spray NASAL BID 07/13/13 [place]] Montelukast [Singulair] 10 mg PO QHS 07/13/13 Sertraline HCl [Zoloft] 150 mg PO DAILY 07/13/13 Tiotropium [place] [Spiriva 18 MCG] 1 puff INHALATION DAILY 07/13/13 Atorvastatin Calcium [Lipitor] 10 mg PO QHS 10/26/14 Lisinopril [Zestril] 20 mg PO DAILY 10/26/14 Ferrous Sulfate 325 mg PO BID 07/14/15 Multivitamin [Daily Multiple 1 each PO DAILY 07/14/15 Vitamin] Omeprazole [Prilosec] 20 mg PO DAILY 07/14/15 Polyethylene Glycol 3350 [Miralax] 17 gm PO DAILY PRN 07/14/15 Ipratropium [Atrovent Aerosols] 0.5 mg INHALATION 4X/DAY PRN 09/03/16 Guaifenesin [Mucinex] 600 mg PO BID 01/12/17 Fluticasone/Salmeterol [Advair Hfa 2 puff INHALATION BID 06/22/17 230-21 Mcg Inhaler] Nystatin/Triamcin Cream [Mycolog] 1 applic TOPICAL BID PRN 06/22/17 Hydrocodone Bitart/Apap 5-325 1 tab PO Q4H PRN PRN #20 tab 09/16/17 [[place] 5/325] Lactobacillus Acidophilus 2 tab PO TID #30 tab 09/16/17 [Acidophilus] Amoxicillin/Potassium Clav 1 ea PO BID 7 Days #14 tab 11/10/17 [Augmentin 875-125 Tablet] - Family History Sibling Diabetes, Renal Disease, - - Patient's father at the age of 76 with history of colon cancer myocardial infarction. Patient's mother at age of 86 with a history of breast cancer. Maternal Cancer Paternal Cancer Smoking Status: Never smoker Tobacco Use: Non-smoker Review of Systems Constitutional: Denies: Chills, Fever, Weight Change Eyes: Denies: Pain, Vision Change HEENT: Denies: Difficulty Hearing, Difficulty Swallowing, Sinus Congestion Cardiovascular: Denies: Chest Pain, Palpitations Respiratory: Denies: Cough, Shortness of Breath Gastrointestinal: Denies: Diarrhea, Nausea, Vomiting Genitourinary: Denies: Dysuria, Hematuria Endocrine: Denies: Heat/ Cold Intolerance, Polydipsia, Polyuria Hematologic/ Lymphatic: Denies: Easy Bruising, Easy Bleeding - Physical Exam Vital Signs Temp Pulse Resp BP 98.2 F 96 18 130/63 H 11/11/17 11:14 11/11/17 11:14 11/11/17 11:14 11/11/17 11:14 General: Alert, Oriented x3, Cooperative, No apparent distress, Well developed, Well nourished HEENT: Atraumatic, PERRLA, EOMI, Normocephalic Oral: Moist Mucosa Neck: No JVD Lungs: Normal air movement Abdomen: Non-Distended Extremities: No clubbing, No cyanosis, - - Only minimal swelling and edema is noted in the left lower extremity. The patient's traumatic wound, located on the left lateral calf, is pink and healthy in appearance. There is evidence of peripheral epithelialization. There is no evidence of significant cellulitis or erythema. There is no obvious infection. Dimensions are documented elsewhere. Wound Measurements and Assessment WC - Nurse 1 - General Ulcer Measurement Start: 10/31/17 10:07 Freq: Status: Active Protocol: Activity Type Activity Date Activity User E-Sign Co-Sign Detail Recorded Client Recorded Date Recorded By Document 11/11/17 11:14 DL [id number] 11/11/17 11:18 DL 11/11/17 11:14 Wound Center Nurse 1 [Ulcer Assessment] #7 LATERAL LLE- POST OP 09/12/17 -Combined with other wound No -Current Size (cm) - Length 16.0 -Current Size (cm) - Width 3.8 -Current Size (cm) - Depth 0.1 -Total Square Cm 60.80 -Photo Taken No -Epithelialization Small 1-33% -Tunneling No -Undermining/Tunneling No -Circular Undermining No -Classification - Thickness Full Thickness without Exposed Support Structure -Exudate Amt Medium (34-66%) -Exudate Type Serosanguineous -Wound Margin Distinct, Outline Attached -Granulation Amt Large (67-100%) -Granulation Quality Red -Slough/Fibrin No -Necrosis Amt None Present (0 %) -Structure Exposed Fascia Fat Layer Exposed -Texture (Karin-wound Skin Appearance) Localized Edema -Moisture (Karin-wound Skin Appearance No Abnormality ) -Color (Karin-wound Skin Appearance) Erythema -Temperature (Karin-wound Skin No Abnormality Appearance) (Pt Warm) -Tenderness on Palpation (Karin-wound No Skin Appearance) -Ulcer Cleansing hibiclens -Foul Odor after Cleansing No -Anesthetic Used 4% Lidocaine Solution [Edema Assessment] -Lower Limb Edema Present Yes -Left Calf (cm) 39.0 -Left Ankle (cm) 23.8 WC - Nurse 2 - General Ulcer CM Notes Start: 10/31/17 10:07 Freq: Status: Active Protocol: Activity Type Activity Date Activity User E-Sign Co-Sign Detail Recorded Client Recorded Date Recorded By Document 11/11/17 12:19 [id number] 11/11/17 12:20 11/11/17 12:19 Wound Center Nurse 2 [Procedure/Treatment] #7 LATERAL LLE- POST OP 09/12/17 -Time 12:19 -Correct Patient Yes -Correct Side, Site, Position Yes -Procedure Performed No -Post Debridement Size (cm) - Length 16 -Post Debridement Size (cm) - Width 3.8 -Post Debridement Size (cm) - Depth 0.1 -Total Square Cm 60.8 -Wound/Ulcer Outcome Not Healed -Ulcer Cleansing Not Cleansed -Foul Odor after Cleansing No -Bleeding Controlled with NA [See Physician Procedure note for Specifics] Pain Scale: 0-10 Numeric [Pain] -Is Patient Pain Free? Yes Musculoskeletal: No Muscle Wasting Neurological: Cranial nerves II-XII grossly intact, Neuro grossly intact Psych/Mental Status: Normal Affect, Appropriate, Alert and oriented to time, place, person, mood and affect Debridement Note Post-Debridement Measurements/Treatment WC - Nurse 2 - General Ulcer CM Notes Start: 10/31/17 10:07 Freq: Status: Active Protocol: Activity Type Activity Date Activity User E-Sign Co-Sign Detail Recorded Client Recorded Date Recorded By Document 10/31/17 10:55 DV [id number] 10/31/17 10:56 DV Document 11/04/17 11:18 CS [id number] 11/04/17 11:27 CS Document 11/11/17 12:19 CS [id number] 11/11/17 12:20 CS 10/31/17 11/04/17 11/11/17 10:55 11:18 12:19 Wound Center Nurse 2 #7 LATERAL LLE- POST OP 09/12/17 -Time 10:56 11:18 12:19 -Correct Patient Yes Yes Yes -Correct Side, Site, Position Yes Yes Yes -Correct Procedure Yes Yes -Procedure Performed Yes No No -Type of Procedure Debridement -Clinical Debridement Subcutaneous -Post Debridement Size (cm) - Length 22.0 16 -Post Debridement Size (cm) - Width 4.0 3.8 -Post Debridement Size (cm) - Depth 0.2 0.1 -Total Square Cm 88.00 60.8 -Wound/Ulcer Outcome Not Healed Not Healed Not Healed -Ulcer Cleansing Rinsed/ Not Cleansed Not Cleansed Irrigated with Saline -Foul Odor after Cleansing No No -Bioengineered Tissue No -Topical Lidocaine (%) 4 -Lidocaine (ml) 10 -Bleeding Controlled with Pressure NA NA -Treatment Response Procedure Tolerated Well Pain Scale: 0-10 Numeric Is Patient Pain Free? Yes Yes Yes No debridement was completed today Assessment/Plan Active Problems Open wound (Acute) Open wound of left lower leg (Acute) Traumatic open wound of left lower leg (Acute) Leg swelling (Chronic) Traumatic wound (Acute) Open wound of left lower extremity (Acute) Assessment: This is a 77-year-old male with a traumatic injury to the left lateral calf. The patient appears to be responding well to the use of the wound VAC, which will be continued. It has been noted that the patient was recently hospitalized for 4 days and treatment for cellulitis in the left lower extremity related to his traumatic wound. He has responded well to inpatient management, and his cellulitis appears to be resolved. He remains on Augmentin orally. Plan: We are to continue the use of the wound VAC which will be changed several times weekly. Patient has shown significant progress. Wound VAC changes have been assisted by home health nursing personnel. Patient will return in 1 week for reassessment. Intake of a well-balanced and nutritious diet has been advised. Patient has been advised to elevate his lower extremities, to minimize swelling and edema. Continue increasing iron supplements to twice daily daily. Follow-up one week. We will seek consultation with plastic surgery, Dr. Hinds, for consideration of a split thickness skin graft. Given the large size of the patient's traumatic wound, split thickness skin grafting may offer a more expeditious approach to subsequent healing and discharge. Matters in this regard have been discussed with the patient. The patient is not a smoker. Influenza vaccine was not administered today. Patient stands 5 feet 4 inches tall. He weighs 210 pounds. His BMI is 36.0, which places him in a class II category. Weight loss has been recommended, with collaboration with his primary care physician.
== END 2017-11-15 23:59 ==
LOC: WC 11:00
PROVIDERS: Family Provider Internal Medicine; PCP Internal Medicine; Visit Provider Surgery
DX: S81.812A Laceration without foreign body, left lower leg, initial encounter (principal); W27.8XXA Contact with other nonpowered hand tool, initial encounter; M79.89 Other specified soft tissue disorders; D64.9 Anemia, unspecified; Z86.711 Personal history of pulmonary embolism; E78.5 Hyperlipidemia, unspecified; I10 Essential (primary) hypertension; J45.909 Unspecified asthma, uncomplicated; M19.90 Unspecified osteoarthritis, unspecified site; K21.9 Gastro-esophageal reflux disease without esophagitis; Z85.46 Personal history of malignant neoplasm of prostate
CPT/HCPCS: 11042; 11045; 97606; 99212; 99213; G0463

== ENCOUNTER 2017-12-06 11:10 | Emergency (ER) | payer MEDICARE, SELFPAY ==
[2017-12-06 11:15] VITALS: BP 138/80; PULSE 103; PULSE 104; RESP 18; TEMP 36.6; O2SAT 98; BMI 33.7
[2017-12-06 12:33] LABS: Absolute Lymphocyte Count 0.68 X10^3/ul (0.83-4.51); Absolute Neutrophil Count 4.3 X10^3/uL (2.0-7.7); Basophil# 0.01 X10^3/uL; Basophil% 0.2 % (0-1); Eosinophil# 0.14 X10^3/uL; Eosinophils% 2.5 % (0-5); Hematocrit 35.7 % (40-54); Hemoglobin 11.2 g/dl (13.0-16.5); Lymphocyte # 0.68 X10^3/ul (4.0); Lymphocyte % 12.1 % (19-41); Mean Corp Hgb Conc 31.4 g/gl (32-36); Mean Platelet Vol. 9.4 fl (6.2-12.0); Monocyte# 0.53 X10^3/uL; Monocyte% 9.4 % (0-10); Neutrophil # 4.27 X10^3/uL (2.7-7.7); Neutrophil % 75.6 % (47-70); Platelet Count 180 K/mm3 (150-450); RBC Distribution Width SD 50.5 fl (35.1-43.9); Red Blood Count 4.15 M/mm3 (4.6-6.2); White Blood Count 5.6 K/mm3 (4.4-11.0)
[2017-12-06 12:34] LABS: POSITIVE COUNT NO; POSITIVE DIFFERENTIAL NO; POSITIVE MORPHOLOGY NO
[2017-12-06 12:48] LABS: Anion Gap 5 (5-15); BUN 21 mg/dL (7-18); BUN/Creat Ratio 18.1 RATIO (10-20); Calcium,Total 8.9 mg/dL (8.5-10.1); Chloride 108 mmol/L (98-107); Creatinine, Serum 1.16 mg/dL (0.70-1.30); EST Glomerular Filtration Rate 65 mL/min (>60); Est Glom Filt Rate - Afr Amer 78 mL/min (>60); Estimated Creatinine Clearance 44.92 ml/min; Glucose 105 mg/dL (74-106); Potassium 4.7 mmol/L (3.5-5.1); Sodium Level 137 mmol/L (136-145)
--- NOTE | 2017-12-06 12:50 | CT_ITS ---
STUDY: CTA CHEST REASON FOR EXAM: Male, 77 years old. Dyspnea. History of pulmonary embolism. RADIATION DOSAGE (If Supplied By Facility): CTDIvol = ( 18.26 ) mGy, DLP = ( 761.32 ) mGycm TECHNIQUE: The examination was performed with the intravenous administration of 75 ml of Isovue 370 contrast material. Post-processing of the angiographic images was performed, with multiplanar reformation and 3D reconstruction. Individualized dose optimization techniques were used for this CT. COMPARISON: None. FINDINGS: Normal enhancement of the main pulmonary artery and right and left pulmonary arteries. Normal enhancement of the bilateral peripheral pulmonary arteries. There is no demonstrated pulmonary embolism. There is atherosclerotic calcification of the aortic arch with mild tortuosity. There is no demonstrated aortic dissection. Normal heart and pericardium. There are calcifications of the coronary arteries. There are few small nodes in the anterior mediastinum and aortopulmonic window. There are calcified subcarinal nodes. There is no evidence of hilar adenopathy. Normal visualized trachea and bronchi. The lungs are well expanded. There are calcified nodules and pleural-based calcifications as well as calcified pleural plaques bilaterally which could be due to old granulomatous disease and previous asbestos exposure. There is moderate stranding in the right lower and middle lobes with bronchiectatic changes appear to be chronic. No focal infiltrate is seen. There are no pleural effusions. Normal chest wall structures. There are mild degenerative changes of thoracic spine. The visualized portions of the upper abdomen demonstrate calcified granulomata in the spleen. CT/CTA Chest W/WO Contrast IMPRESSION: No evidence of pulmonary embolism. Bilateral lower lung scarring and bronchiectatic changes. Pleural-based calcifications and calcified nodules likely due to old granulomatous disease and previous asbestos exposure No focal infiltrate is seen. Electronically Signed: Liborio Bruno MD at 13:41 EDT Tel , Service support ,
[2017-12-06 13:38] VITALS: BP 158/94; PULSE 108; RESP 21; O2SAT 97
[2017-12-06] MEDS: Ipratropium/Albuterol Sulfate 3 ML AMPUL.NEB INHALATION (13:56)
[2017-12-06 13:57] VITALS: PULSE 114; RESP 12
--- NOTE | 2017-12-06 14:15 | ED.DCSUM_ITS ---
- ER Visit Summary Date of Service: 12/06/17 Chief Complaint: Shortness of breath History of Present Illness: The patient is a 77 M who has a history of PE and asthma. Patient states that home health is noted that he has been wheezing and seemed more short of breath than normal. He believes that his asthma but wanted to be certain that it was an another pulmonary embolism. Patient denies any fevers. No sputum production. Physical Examination: Afebrile vital signs are stable Gen: Well-nourished well-developed Head: Normocephalic atraumatic Eyes: Perrl EOMI ENT: TMs clear no rhinorrhea moist mucous membranes Neck: Supple no lymphadenopathy no JVD nontender CVS: Regular rate rhythm no murmurs normal S1-S2 Respiratory: No distress chest nontender expiratory and expiratory wheezing with rhonchi Abdomen: Soft nontender nondistended normal bowel sounds no masses Back: Nontender Extremity: Left leg wrapped Skin: Normal color no rash Neuro: alert orientated ?3 CN II-XII intact normal strength sensation reflexes gait cerebellar Psych: Normal affect normal mood Test Results: CBC BMP is normal. CTA is negative for PE Emergency Department Course and Treatment: Patient received a breathing treatment. He will be placed on prednisone. Return if worsening or concerns. Impression: 1. Asthma exacerbation This note was generated with [employer] dictation software. It may contain incorrect words, spelling, and punctuation that were not noted in review of the chart prior to signing ED Disposition - Plan for ED Patient: Disposition: Home or Assisted Living Chief Complaint: Shortness of Breath Instructions: ED Bronchitis Asthmatic Prescriptions: Prednisone [Deltasone] 60 mg PO DAILY #15 tab Referrals: Lambert Larios MD [Primary Care Provider] - 3-5 Days if not improving
[2017-12-06 14:22] VITALS: BP 144/80; PULSE 105; RESP 14; O2SAT 97
== END 2017-12-06 14:31 | disposition home or self-care (01) ==
PROVIDERS: Emergency Provider Emergency Medicine; Family Provider Internal Medicine; PCP Internal Medicine
DX: J45.901 Unspecified asthma with (acute) exacerbation (principal); I10 Essential (primary) hypertension; K21.9 Gastro-esophageal reflux disease without esophagitis; M06.9 Rheumatoid arthritis, unspecified; Z86.711 Personal history of pulmonary embolism; Z79.899 Other long term (current) drug therapy
CPT/HCPCS: 71275; 80048; 84484; 85025; 94640; 99284; Q9967; A4216

== ENCOUNTER 2017-12-16 10:30 | Outpatient (RCR) | payer MEDICARE, SELFPAY ==
[2017-11-16 00:56] VITALS: BP 130/63; PULSE 96; RESP 18; TEMP 36.8
[2017-11-18 11:45] VITALS: BP 134/88; PULSE 106; RESP 18; TEMP 36
--- NOTE | 2017-11-18 12:41 | PCM.WC.HP ---
(1) Obesity Status: Chronic Current Visit: No Code(s): E66.9 - Obesity, unspecified (2) Open wound Status: Acute Current Visit: Yes Code(s): T14.8 - Other injury of unspecified body region (3) Open wound of left lower leg Status: Acute Current Visit: Yes Qualifiers: Encounter type: subsequent encounter Code(s): S81.802A - Unspecified open wound, left lower leg, initial encounter (4) Traumatic open wound of left lower leg Status: Acute Current Visit: Yes Qualifiers: Encounter type: subsequent encounter Code(s): S81.802A - Unspecified open wound, left lower leg, initial encounter (5) Leg swelling Status: Chronic Current Visit: Yes Code(s): M79.89 - Other specified soft tissue disorders (6) Traumatic wound Status: Acute Current Visit: Yes (7) Open wound of left lower extremity Status: Acute Current Visit: Yes Qualifiers: Encounter type: subsequent encounter Code(s): S81.802A - Unspecified open wound, left lower leg, initial encounter (8) Cellulitis of left leg Status: Resolved Current Visit: No Code(s): L03.116 - Cellulitis of left lower limb (9) History of pulmonary embolism Status: Chronic Current Visit: No Code(s): Z86.711 - Personal history of pulmonary embolism (10) 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 Current Visit: No Code(s): L97.929 - Non-pressure chronic ulcer of unspecified part of left lower leg with unspecified severity; L08.9 - Local infection of the skin and subcutaneous tissue, unspecified (11) Iron deficiency anemia Status: Chronic Current Visit: No Code(s): D50.9 - Iron deficiency anemia, unspecified (12) Pulmonary nodule Status: Chronic Current Visit: No Code(s): R91.1 - Solitary pulmonary nodule (13) HLD (hyperlipidemia) Status: Chronic Current Visit: No Code(s): E78.5 - Hyperlipidemia, unspecified (14) Diverticulosis Status: Chronic Current Visit: No Code(s): K57.90 - Diverticulosis of intestine, part unspecified, without perforation or abscess without bleeding (15) Asthma Status: Chronic Current Visit: No Code(s): J45.909 - Unspecified asthma, uncomplicated (16) Hypertension Status: Chronic Current Visit: No Qualifiers: Code(s): I10 - Essential (primary) hypertension (17) Osteoarthritis Status: Chronic Current Visit: No (18) Penetrating injury right leg Status: Resolved Current Visit: No (19) History of prostate cancer Status: Chronic Current Visit: No Code(s): Z85.46 - Personal history of malignant neoplasm of prostate (20) Allergic rhinitis Status: Chronic Current Visit: No Code(s): J30.9 - Allergic rhinitis, unspecified (21) Rheumatoid arthritis Status: Chronic Current Visit: No Code(s): M06.9 - Rheumatoid arthritis, unspecified (22) Pleural plaque Status: Chronic Current Visit: No Code(s): J92.9 - Pleural plaque without asbestos (23) Macular degeneration Status: Chronic Current Visit: No Code(s): H35.30 - Unspecified macular degeneration (24) GERD (gastroesophageal reflux disease) Status: Chronic Current Visit: No Code(s): K21.9 - Gastro-esophageal reflux disease without esophagitis History of Present Illness Date of Service: 11/18/17 Chief Complaint: Recent traumatic injury of the left lower extremity with residual open wound History of Wound: This is a 77-year-old male who was in his normal state of health until September 06, 2017, at which time he sustained an injury to the left lateral calf, the result of a shovel which impaled into his left leg. The patient was rushed to the emergency department on that date, where he was treated by means of wound closure using sutures. Four days later, he had developed a cellulitis, and was admitted to the hospital for treatment. Patient was treated with antibiotics, and subsequently underwent wide surgical debridement of necrotic tissue by Dr. Homero Chin on September 12, 2017. Patient was discharged on September 16, 2017. He was discharged on Cipro 500 mg p.o. twice daily and Augmentin 875 mg p.o. twice daily. At the time of discharge, arrangements were made for the wound VAC to be the means of treatment, which has been changed every several days by home health nursing personnel. The patient had been on Xarelto and treatment for a pulmonary embolism which was diagnosed in January 2017. As result of his injury, the Xarelto has been discontinued. A noninvasive lower extremity arterial study performed in August 2016 revealed no evidence of arterial occlusive disease in the lower extremities. Therefore, there is no reason to believe there is since of any significant arterial occlusive disease. The patient has done well, showing progress with the use of the wound VAC. The patient developed cellulitis in his left lower extremity associated with fever. He was hospitalized at [facility] for approximately 4 days. He was treated initially with intravenous antibiotics consisting of Zosyn, and was subsequently discharged with a prescription for Augmentin, which continues currently. The wound VAC has been re-implemented. 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) Iron deficiency anemia (Chronic) Pulmonary nodule (Chronic) HLD (hyperlipidemia) (Chronic) Diverticulosis (Chronic) Asthma (Chronic) Hypertension (Chronic) Osteoarthritis (Chronic) History of prostate cancer (Chronic) Allergic rhinitis (Chronic) Rheumatoid arthritis (Chronic) Pleural plaque (Chronic) Macular degeneration (Chronic) GERD (gastroesophageal reflux disease) (Chronic) Surgical History: - - Umbilical hernia repair, appendectomy, bilateral carpal tunnel surgery, Prostatectomy, Cataract surgery, L lens implant, L knee surgery followed by LTKR, L shoulder surgery, left total hip replacement. Allergies/Adverse Reactions: Allergies indomethacin [From Indocin] Allergy (Verified 11/06/17 14:54) Itching indomethacin sodium [From Indocin] Allergy (Verified 11/06/17 14:54) Itching oxycodone HCl [From Percocet] Allergy (Verified 11/06/17 14:54) Itching Home Medications: Ambulatory Orders Medication Instructions Recorded Albuterol Sulfate [Proventil Hfa] 2 puff IH BID 07/13/13 Azelastine HCl [Astelin] 2 spray NASAL BID 07/13/13 Fluticasone 0.05% [Flonase Nasal 2 spray NASAL BID 07/13/13 [place]] Montelukast [Singulair] 10 mg PO QHS 07/13/13 Sertraline HCl [Zoloft] 150 mg PO DAILY 07/13/13 Tiotropium [place] [Spiriva 18 MCG] 1 puff INHALATION DAILY 07/13/13 Atorvastatin Calcium [Lipitor] 10 mg PO QHS 10/26/14 Lisinopril [Zestril] 20 mg PO DAILY 10/26/14 Ferrous Sulfate 325 mg PO BID 07/14/15 Multivitamin [Daily Multiple 1 each PO DAILY 07/14/15 Vitamin] Omeprazole [Prilosec] 20 mg PO DAILY 07/14/15 Polyethylene Glycol 3350 [Miralax] 17 gm PO DAILY PRN 07/14/15 Ipratropium [Atrovent Aerosols] 0.5 mg INHALATION 4X/DAY PRN 09/03/16 Guaifenesin [Mucinex] 600 mg PO BID 01/12/17 Fluticasone/Salmeterol [Advair Hfa 2 puff INHALATION BID 06/22/17 230-21 Mcg Inhaler] Nystatin/Triamcin Cream [Mycolog] 1 applic TOPICAL BID PRN 06/22/17 Hydrocodone Bitart/Apap 5-325 1 tab PO Q4H PRN PRN #20 tab 09/16/17 [[place] 5/325] Lactobacillus Acidophilus 2 tab PO TID #30 tab 09/16/17 [Acidophilus] Amoxicillin/Potassium Clav 1 ea PO BID 7 Days #14 tab 11/10/17 [Augmentin 875-125 Tablet] - Family History Sibling Diabetes, Renal Disease, - - Patient's father at the age of 76 with history of colon cancer myocardial infarction. Patient's mother at age of 86 with a history of breast cancer. Maternal Cancer Paternal Cancer Smoking Status: Never smoker Tobacco Use: Non-smoker Review of Systems Constitutional: Denies: Chills, Fever, Weight Change Eyes: Denies: Pain, Vision Change HEENT: Denies: Difficulty Hearing, Difficulty Swallowing, Sinus Congestion Cardiovascular: Denies: Chest Pain, Palpitations Respiratory: Denies: Cough, Shortness of Breath Gastrointestinal: Denies: Diarrhea, Nausea, Vomiting Genitourinary: Denies: Dysuria, Hematuria Endocrine: Denies: Heat/ Cold Intolerance, Polydipsia, Polyuria Hematologic/ Lymphatic: Denies: Easy Bruising, Easy Bleeding - Physical Exam Vital Signs Temp Pulse Resp BP 96.8 F L 106 H 18 134/88 H 11/18/17 11:45 11/18/17 11:45 11/18/17 11:45 11/18/17 11:45 General: Alert, Oriented x3, Cooperative, No apparent distress, Well developed, Well nourished HEENT: Atraumatic, PERRLA, EOMI, Normocephalic Oral: Moist Mucosa Neck: No JVD Lungs: Normal air movement Abdomen: Non-Distended Extremities: No clubbing, No cyanosis, No Calf Tenderness, - - Swelling and edema in the lower extremities is well controlled. The traumatic wound on the left lateral calf continues to diminish in size. The wound is pink and healthy in appearance, with active granulation tissue. There is evidence of peripheral epithelialization. There is no sign of infection or cellulitis. However, superficial excoriations are noted adjacent to the wound, likely due to the adhesive from the wound VAC drape. Wound Measurements and Assessment WC - Nurse 1 - General Ulcer Measurement Start: 11/18/17 11:45 Freq: Status: Active Protocol: Activity Type Activity Date Activity User E-Sign Co-Sign Detail Recorded Client Recorded Date Recorded By Document 11/18/17 11:45 [id number] 11/18/17 11:53 11/18/17 11:45 Wound Center Nurse 1 [Ulcer Assessment] #7 LATERAL LLE- POST OP 09/12/17 -Combined with other wound No -Current Size (cm) - Length 19.9 -Current Size (cm) - Width 3.2 -Current Size (cm) - Depth 0.1 -Total Square Cm 63.68 -Photo Taken No -Epithelialization None Present -Tunneling No -Undermining/Tunneling No -Circular Undermining No -Exudate Amt Large (67-100%) -Exudate Type Serosanguineous -Wound Margin Distinct, Outline Attached -Granulation Amt Large (67-100%) -Granulation Quality Red -Slough/Fibrin No -Necrosis Amt None Present (0 %) -Structure Exposed None/Limited to Skin Breakdown -Texture (Karin-wound Skin Appearance) Assessed Scarring Rash -Moisture (Karin-wound Skin Appearance Assessed ) Maceration -Color (Karin-wound Skin Appearance) Assessed Erythema Palor -Temperature (Karin-wound Skin No Abnormality Appearance) (Pt Warm) -Tenderness on Palpation (Karin-wound Yes Skin Appearance) -Ulcer Cleansing Wound Cleanser -Foul Odor after Cleansing No -Anesthetic Used 4% Lidocaine Solution [Edema Assessment] -Lower Limb Edema Present NA WC - Nurse 2 - General Ulcer CM Notes Start: 11/18/17 11:45 Freq: Status: Active Protocol: Activity Type Activity Date Activity User E-Sign Co-Sign Detail Recorded Client Recorded Date Recorded By Document 11/18/17 12:31 [id number] 11/18/17 12:32 11/18/17 12:31 Wound Center Nurse 2 [Procedure/Treatment] #7 LATERAL LLE- POST OP 09/12/17 -Time 12:31 -Correct Patient Yes -Correct Side, Site, Position Yes -Correct Procedure Yes -Procedure Performed No -Wound/Ulcer Outcome Not Healed -Ulcer Cleansing Rinsed/ Irrigated with Saline -Foul Odor after Cleansing No -Bioengineered Tissue No -Topical Lidocaine (%) 4 -Lidocaine (ml) 15 -Bleeding Controlled with NA [See Physician Procedure note for Specifics] Pain Scale: 0-10 Numeric [Pain] -Is Patient Pain Free? Yes Neurological: Cranial nerves II-XII grossly intact, Neuro grossly intact Psych/Mental Status: Normal Affect, Appropriate, Alert and oriented to time, place, person, mood and affect Debridement Note Post-Debridement Measurements/Treatment WC - Nurse 2 - General Ulcer CM Notes Start: 11/18/17 11:45 Freq: Status: Active Protocol: Activity Type Activity Date Activity User E-Sign Co-Sign Detail Recorded Client Recorded Date Recorded By Document 11/18/17 12:31 [id number] 11/18/17 12:32 11/18/17 12:31 Wound Center Nurse 2 #7 LATERAL LLE- POST OP 09/12/17 -Time 12:31 -Correct Patient Yes -Correct Side, Site, Position Yes -Correct Procedure Yes -Procedure Performed No -Wound/Ulcer Outcome Not Healed -Ulcer Cleansing Rinsed/ Irrigated with Saline -Foul Odor after Cleansing No -Bioengineered Tissue No -Topical Lidocaine (%) 4 -Lidocaine (ml) 15 -Bleeding Controlled with NA Pain Scale: 0-10 Numeric Is Patient Pain Free? Yes No debridement was completed today Assessment/Plan Active Problems Open wound (Acute) Open wound of left lower leg (Acute) Traumatic open wound of left lower leg (Acute) Leg swelling (Chronic) Traumatic wound (Acute) Open wound of left lower extremity (Acute) Assessment: This is a 77-year-old male with a traumatic injury to the left lateral calf. The patient appears to be responding well to the use of the wound VAC, which will be continued. It has been noted that the patient was recently hospitalized for 4 days and treatment for cellulitis in the left lower extremity related to his traumatic wound. He has responded well to inpatient management, and his cellulitis appears to be resolved. The patient now has extensive superficial excoriations adjacent to his left lower extremity wound, thought to be due to the adhesive drape from the wound VAC. As result, we will take a wound VAC holiday, and implement the use of Silver [place]. Plan: We are to take a wound VAC holiday given the patient's skin reaction to the wound VAC adhesive drape. We will implement the use of Silver Viola. This will be applied every other day. He will be covered with gauze, and held in place with Tushar wrap. In this way, we can avoid the use of adhesives completely. Patient has shown significant progress. Patient will return in 1 week for reassessment. Intake of a well-balanced and nutritious diet has been advised. Patient has been advised to elevate his lower extremities, to minimize swelling and edema. Continue increasing iron supplements to twice daily daily. We will seek consultation with plastic surgery, Dr. Hinds, for consideration of a split thickness skin graft. Given the large size of the patient's traumatic wound, split thickness skin grafting may offer a more expeditious approach to subsequent healing and discharge. Matters in this regard have been discussed with the patient. The patient is not a smoker. Influenza vaccine was not administered today. Patient stands 5 feet 4 inches tall. He weighs 210 pounds. His BMI is 36.0, which places him in a class II category. Weight loss has been recommended, with collaboration with his primary care physician.
[2017-11-25 09:59] VITALS: BP 145/82; PULSE 113; RESP 18; TEMP 36.6
--- NOTE | 2017-11-25 10:40 | PCM.WC.HP ---
(1) Obesity Status: Chronic Current Visit: No Code(s): E66.9 - Obesity, unspecified (2) Open wound Status: Acute Current Visit: Yes Code(s): T14.8 - Other injury of unspecified body region (3) Open wound of left lower leg Status: Acute Current Visit: Yes Qualifiers: Encounter type: subsequent encounter Code(s): S81.802A - Unspecified open wound, left lower leg, initial encounter (4) Traumatic open wound of left lower leg Status: Acute Current Visit: Yes Qualifiers: Encounter type: subsequent encounter Code(s): S81.802A - Unspecified open wound, left lower leg, initial encounter (5) Leg swelling Status: Chronic Current Visit: Yes Code(s): M79.89 - Other specified soft tissue disorders (6) Traumatic wound Status: Acute Current Visit: Yes (7) Open wound of left lower extremity Status: Acute Current Visit: Yes Qualifiers: Encounter type: subsequent encounter Code(s): S81.802A - Unspecified open wound, left lower leg, initial encounter (8) History of pulmonary embolism Status: Chronic Current Visit: No Code(s): Z86.711 - Personal history of pulmonary embolism (9) 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 Current Visit: No Code(s): L97.929 - Non-pressure chronic ulcer of unspecified part of left lower leg with unspecified severity; L08.9 - Local infection of the skin and subcutaneous tissue, unspecified (10) Iron deficiency anemia Status: Chronic Current Visit: No Code(s): D50.9 - Iron deficiency anemia, unspecified (11) Pulmonary nodule Status: Chronic Current Visit: No Code(s): R91.1 - Solitary pulmonary nodule (12) HLD (hyperlipidemia) Status: Chronic Current Visit: No Code(s): E78.5 - Hyperlipidemia, unspecified (13) Diverticulosis Status: Chronic Current Visit: No Code(s): K57.90 - Diverticulosis of intestine, part unspecified, without perforation or abscess without bleeding (14) Asthma Status: Chronic Current Visit: No Code(s): J45.909 - Unspecified asthma, uncomplicated (15) Hypertension Status: Chronic Current Visit: No Qualifiers: Code(s): I10 - Essential (primary) hypertension (16) Osteoarthritis Status: Chronic Current Visit: No (17) History of prostate cancer Status: Chronic Current Visit: No Code(s): Z85.46 - Personal history of malignant neoplasm of prostate (18) Allergic rhinitis Status: Chronic Current Visit: No Code(s): J30.9 - Allergic rhinitis, unspecified (19) Rheumatoid arthritis Status: Chronic Current Visit: No Code(s): M06.9 - Rheumatoid arthritis, unspecified (20) Pleural plaque Status: Chronic Current Visit: No Code(s): J92.9 - Pleural plaque without asbestos (21) Macular degeneration Status: Chronic Current Visit: No Code(s): H35.30 - Unspecified macular degeneration (22) GERD (gastroesophageal reflux disease) Status: Chronic Current Visit: No Code(s): K21.9 - Gastro-esophageal reflux disease without esophagitis History of Present Illness Date of Service: 11/25/17 Chief Complaint: Recent traumatic injury of the left lower extremity with residual open wound History of Wound: This is a 77-year-old male who was in his normal state of health until September 06, 2017, at which time he sustained an injury to the left lateral calf, the result of a shovel which impaled into his left leg. The patient was rushed to the emergency department on that date, where he was treated by means of wound closure using sutures. Four days later, he had developed a cellulitis, and was admitted to the hospital for treatment. Patient was treated with antibiotics, and subsequently underwent wide surgical debridement of necrotic tissue by Dr. Homero Chin on September 12, 2017. Patient was discharged on September 16, 2017. He was discharged on Cipro 500 mg p.o. twice daily and Augmentin 875 mg p.o. twice daily. At the time of discharge, arrangements were made for the wound VAC to be the means of treatment, which has been changed every several days by home health nursing personnel. The patient had been on Xarelto and treatment for a pulmonary embolism which was diagnosed in January 2017. As result of his injury, the Xarelto has been discontinued. A noninvasive lower extremity arterial study performed in August 2016 revealed no evidence of arterial occlusive disease in the lower extremities. Therefore, there is no reason to believe there is since of any significant arterial occlusive disease. The patient has done well, showing progress with the use of the wound VAC. The patient developed cellulitis in his left lower extremity associated with fever. He was hospitalized at [facility] for approximately 4 days. He was treated initially with intravenous antibiotics consisting of Zosyn, and was subsequently discharged with a prescription for Augmentin, which has been completed. A wound VAC holiday was initiated last week, and the use of Silver Viola implemented topically since that time. 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) Iron deficiency anemia (Chronic) Pulmonary nodule (Chronic) HLD (hyperlipidemia) (Chronic) Diverticulosis (Chronic) Asthma (Chronic) Hypertension (Chronic) Osteoarthritis (Chronic) History of prostate cancer (Chronic) Allergic rhinitis (Chronic) Rheumatoid arthritis (Chronic) Pleural plaque (Chronic) Macular degeneration (Chronic) GERD (gastroesophageal reflux disease) (Chronic) Surgical History: - - Umbilical hernia repair, appendectomy, bilateral carpal tunnel surgery, Prostatectomy, Cataract surgery, L lens implant, L knee surgery followed by LTKR, L shoulder surgery, left total hip replacement. Allergies/Adverse Reactions: Allergies indomethacin [From Indocin] Allergy (Verified 11/06/17 14:54) Itching indomethacin sodium [From Indocin] Allergy (Verified 11/06/17 14:54) Itching oxycodone HCl [From Percocet] Allergy (Verified 11/06/17 14:54) Itching Home Medications: Ambulatory Orders Medication Instructions Recorded Albuterol Sulfate [Proventil Hfa] 2 puff IH BID 07/13/13 Azelastine HCl [Astelin] 2 spray NASAL BID 07/13/13 Fluticasone 0.05% [Flonase Nasal 2 spray NASAL BID 07/13/13 [place]] Montelukast [Singulair] 10 mg PO QHS 07/13/13 Sertraline HCl [Zoloft] 150 mg PO DAILY 07/13/13 Tiotropium [place] [Spiriva 18 MCG] 1 puff INHALATION DAILY 07/13/13 Atorvastatin Calcium [Lipitor] 10 mg PO QHS 10/26/14 Lisinopril [Zestril] 20 mg PO DAILY 10/26/14 Ferrous Sulfate 325 mg PO BID 07/14/15 Multivitamin [Daily Multiple 1 each PO DAILY 07/14/15 Vitamin] Omeprazole [Prilosec] 20 mg PO DAILY 07/14/15 Polyethylene Glycol 3350 [Miralax] 17 gm PO DAILY PRN 07/14/15 Ipratropium [Atrovent Aerosols] 0.5 mg INHALATION 4X/DAY PRN 09/03/16 Guaifenesin [Mucinex] 600 mg PO BID 01/12/17 Fluticasone/Salmeterol [Advair Hfa 2 puff INHALATION BID 06/22/17 230-21 Mcg Inhaler] Nystatin/Triamcin Cream [Mycolog] 1 applic TOPICAL BID PRN 06/22/17 Hydrocodone Bitart/Apap 5-325 1 tab PO Q4H PRN PRN #20 tab 09/16/17 [Williams 5/325] Lactobacillus Acidophilus 2 tab PO TID #30 tab 09/16/17 [Acidophilus] Amoxicillin/Potassium Clav 1 ea PO BID 7 Days #14 tab 11/10/17 [Augmentin 875-125 Tablet] - Family History Sibling Diabetes, Renal Disease, - - Patient's father at the age of 76 with history of colon cancer myocardial infarction. Patient's mother at age of 86 with a history of breast cancer. Maternal Cancer Paternal Cancer Smoking Status: Never smoker Tobacco Use: Non-smoker Review of Systems Constitutional: Denies: Chills, Fever, Weight Change Eyes: Denies: Pain, Vision Change HEENT: Denies: Difficulty Hearing, Difficulty Swallowing, Sinus Congestion Cardiovascular: Denies: Chest Pain, Palpitations Respiratory: Denies: Cough, Shortness of Breath Gastrointestinal: Denies: Diarrhea, Nausea, Vomiting Genitourinary: Denies: Dysuria, Hematuria Endocrine: Denies: Heat/ Cold Intolerance, Polydipsia, Polyuria Hematologic/ Lymphatic: Denies: Easy Bruising, Easy Bleeding - Physical Exam Vital Signs Temp Pulse Resp BP 97.8 F 113 H 18 145/82 H 11/25/17 09:59 11/25/17 09:59 11/25/17 09:59 11/25/17 09:59 General: Alert, Oriented x3, Cooperative, No apparent distress, Well developed, Well nourished HEENT: Atraumatic, PERRLA, EOMI, Normocephalic Oral: Moist Mucosa Neck: No JVD Lungs: Normal air movement Abdomen: Non-Distended Extremities: No clubbing, No cyanosis, No edema, No Calf Tenderness, - - There is no significant swelling or edema in the left lower extremity. The traumatic wound on the left lateral calf continues to diminish in size. Dimensions are documented elsewhere. The base of the wound is pink and healthy, with active granulation tissue. There is evidence of peripheral epithelialization. The wound has clearly decreased significantly in size. There is no sign of infection or cellulitis. Skin: No rashes Wound Measurements and Assessment WC - Nurse 1 - General Ulcer Measurement Start: 11/18/17 11:45 Freq: Status: Active Protocol: Activity Type Activity Date Activity User E-Sign Co-Sign Detail Recorded Client Recorded Date Recorded By Document 11/25/17 09:59 [place] [id number] 11/25/17 10:02 [place] 11/25/17 09:59 Wound Center Nurse 1 [Ulcer Assessment] #7 LATERAL LLE- POST OP 09/12/17 -Combined with other wound No -Current Size (cm) - Length 20.6 -Current Size (cm) - Width 2.4 -Current Size (cm) - Depth 0.2 -Total Square Cm 49.44 -Epithelialization Small 1-33% -Tunneling No -Undermining/Tunneling No -Granulation Amt Large (67-100%) -Granulation Quality [place] Red -Slough/Fibrin No -Structure Exposed N/A -Texture (Karin-wound Skin Appearance) Assessed Scarring -Moisture (Karin-wound Skin Appearance Assessed ) -Color (Karin-wound Skin Appearance) Assessed -Temperature (Karin-wound Skin No Abnormality Appearance) (Pt Warm) -Tenderness on Palpation (Karin-wound Yes Skin Appearance) -Ulcer Cleansing Wound Cleanser -Foul Odor after Cleansing No -Anesthetic Used 5% Lidocaine Gel [Edema Assessment] -Left Calf (cm) 32 -Left Ankle (cm) 24.2 - Nurse 2 - General Ulcer CM Notes Start: 11/18/17 11:45 Freq: Status: Active Protocol: Activity Type Activity Date Activity User E-Sign Co-Sign Detail Recorded Client Recorded Date Recorded By Document 11/25/17 10:33 [id number] 11/25/17 10:34 11/25/17 10:33 Wound Center Nurse 2 [Procedure/Treatment] #7 LATERAL LLE- POST OP 09/12/17 -Time 10:33 -Correct Patient Yes -Correct Side, Site, Position Yes -Correct Procedure Yes -Procedure Performed Yes -Type of Procedure Debridement -Clinical Debridement Subcutaneous -Post Debridement Size (cm) - Length 20.6 -Post Debridement Size (cm) - Width 2.5 -Post Debridement Size (cm) - Depth 0.1 -Total Square Cm 51.50 -Wound/Ulcer Outcome Not Healed -Ulcer Cleansing Rinsed/ Irrigated with Saline -Foul Odor after Cleansing No -Bioengineered Tissue No -Bleeding Controlled with Pressure -Treatment Response Procedure Tolerated Well [See Physician Procedure note for Specifics] Pain Scale: 0-10 Numeric [Pain] -Is Patient Pain Free? Yes Musculoskeletal: No Muscle Wasting Neurological: Cranial nerves II-XII grossly intact, Neuro grossly intact Psych/Mental Status: Normal Affect, Appropriate, Alert and oriented to time, place, person, mood and affect Debridement Note Post-Debridement Measurements/Treatment WC - Nurse 2 - General Ulcer CM Notes Start: 11/18/17 11:45 Freq: Status: Active Protocol: Activity Type Activity Date Activity User E-Sign Co-Sign Detail Recorded Client Recorded Date Recorded By Document 11/18/17 12:31 [id number] 11/18/17 12:32 Document 11/25/17 10:33 [id number] 11/25/17 10:34 11/18/17 11/25/17 12:31 10:33 Wound Center Nurse 2 #7 LATERAL LLE- POST OP 09/12/17 -Time 12:31 10:33 -Correct Patient Yes Yes -Correct Side, Site, Position Yes Yes -Correct Procedure Yes Yes -Procedure Performed No Yes -Type of Procedure Debridement -Clinical Debridement Subcutaneous -Post Debridement Size (cm) - Length 20.6 -Post Debridement Size (cm) - Width 2.5 -Post Debridement Size (cm) - Depth 0.1 -Total Square Cm 51.50 -Wound/Ulcer Outcome Not Healed Not Healed -Ulcer Cleansing Rinsed/ Rinsed/ Irrigated with Irrigated with Saline Saline -Foul Odor after Cleansing No No -Bioengineered Tissue No No -Topical Lidocaine (%) 4 -Lidocaine (ml) 15 -Bleeding Controlled with NA Pressure -Treatment Response Procedure Tolerated Well Pain Scale: 0-10 Numeric Is Patient Pain Free? Yes Yes Laterality: Left - Lateral calf Type of Debridement: Excisional debridement Anesthesia Used: 4% Lidocaine Solution Depth: Down to and including healthy tissue, in the subcutaneous layer Percentage of wound debrided: 100 Instrument Used: 5mm curette Severity: Fat Layer Exposed Amount of bleeding with debridement: Mild Bleeding Controlled with: Compression and gauze Patient tolerated procedure well Assessment/Plan Active Problems Open wound (Acute) Open wound of left lower leg (Acute) Traumatic open wound of left lower leg (Acute) Leg swelling (Chronic) Traumatic wound (Acute) Open wound of left lower extremity (Acute) Assessment: This is a 77-year-old male with a traumatic injury to the left lateral calf. The patient appears to be responding well to the use of the wound VAC, which will be continued. It has been noted that the patient was recently hospitalized for 4 days and treatment for cellulitis in the left lower extremity related to his traumatic wound. He has responded well to inpatient management, and his cellulitis has resolved. Due to excoriations surrounding the wound noted last week, we have been using Silver Viola topically, with good results. We initiated a wound VAC holiday. Plan: We are to continue the Wound VAC holiday for 1 more week. We will continue the use of Silver Viola. This will be applied every other day. He will be covered with gauze, and held in place with Tushar wrap. In this way, we can avoid the use of adhesives completely. Patient has shown significant progress. Patient will return in 1 week for reassessment. Intake of a well-balanced and nutritious diet has been advised. Patient has been advised to elevate his lower extremities, to minimize swelling and edema. The patient is not a smoker. Influenza vaccine was not administered today. Patient stands 5 feet 4 inches tall. He weighs 210 pounds. His BMI is 36.0, which places him in a class II category. Weight loss has been recommended, with collaboration with his primary care physician.
[2017-12-02 10:22] VITALS: BP 135/79; PULSE 90; RESP 16; TEMP 36.6
--- NOTE | 2017-12-02 11:15 | HP.PCM_ITS ---
(1) Obesity Status: Chronic Current Visit: No Code(s): E66.9 - Obesity, unspecified (2) Open wound Status: Acute Current Visit: Yes Code(s): T14.8 - Other injury of unspecified body region (3) Open wound of left lower leg Status: Acute Current Visit: Yes Qualifiers: Encounter type: subsequent encounter Code(s): S81.802A - Unspecified open wound, left lower leg, initial encounter (4) Traumatic open wound of left lower leg Status: Acute Current Visit: Yes Qualifiers: Encounter type: subsequent encounter Code(s): S81.802A - Unspecified open wound, left lower leg, initial encounter (5) Leg swelling Status: Chronic Current Visit: Yes Code(s): M79.89 - Other specified soft tissue disorders (6) Traumatic wound Status: Acute Current Visit: Yes (7) Open wound of left lower extremity Status: Acute Current Visit: Yes Qualifiers: Encounter type: subsequent encounter Code(s): S81.802A - Unspecified open wound, left lower leg, initial encounter (8) History of pulmonary embolism Status: Chronic Current Visit: No Code(s): Z86.711 - Personal history of pulmonary embolism (9) 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 Current Visit: No Code(s): L97.929 - Non-pressure chronic ulcer of unspecified part of left lower leg with unspecified severity; L08.9 - Local infection of the skin and subcutaneous tissue, unspecified (10) Iron deficiency anemia Status: Chronic Current Visit: No Code(s): D50.9 - Iron deficiency anemia, unspecified (11) Pulmonary nodule Status: Chronic Current Visit: No Code(s): R91.1 - Solitary pulmonary nodule (12) HLD (hyperlipidemia) Status: Chronic Current Visit: No Code(s): E78.5 - Hyperlipidemia, unspecified (13) Diverticulosis Status: Chronic Current Visit: No Code(s): K57.90 - Diverticulosis of intestine, part unspecified, without perforation or abscess without bleeding (14) Asthma Status: Chronic Current Visit: No Code(s): J45.909 - Unspecified asthma, uncomplicated (15) Hypertension Status: Chronic Current Visit: No Qualifiers: Code(s): I10 - Essential (primary) hypertension (16) Osteoarthritis Status: Chronic Current Visit: No (17) History of prostate cancer Status: Chronic Current Visit: No Code(s): Z85.46 - Personal history of malignant neoplasm of prostate (18) Allergic rhinitis Status: Chronic Current Visit: No Code(s): J30.9 - Allergic rhinitis, unspecified (19) Rheumatoid arthritis Status: Chronic Current Visit: No Code(s): M06.9 - Rheumatoid arthritis, unspecified (20) Pleural plaque Status: Chronic Current Visit: No Code(s): J92.9 - Pleural plaque without asbestos (21) Macular degeneration Status: Chronic Current Visit: No Code(s): H35.30 - Unspecified macular degeneration (22) GERD (gastroesophageal reflux disease) Status: Chronic Current Visit: No Code(s): K21.9 - Gastro-esophageal reflux disease without esophagitis History of Present Illness Date of Service: 12/02/17 Chief Complaint: Recent traumatic injury of the left lower extremity with residual open wound History of Wound: This is a 77-year-old male who was in his normal state of health until September 06, 2017, at which time he sustained an injury to the left lateral calf, the result of a shovel which impaled into his left leg. The patient was rushed to the emergency department on that date, where he was treated by means of wound closure using sutures. Four days later, he had developed a cellulitis, and was admitted to the hospital for treatment. Patient was treated with antibiotics, and subsequently underwent wide surgical debridement of necrotic tissue by Dr. Homero Chin on September 12, 2017. Patient was discharged on September 16, 2017. He was discharged on Cipro 500 mg p.o. twice daily and Augmentin 875 mg p.o. twice daily. At the time of discharge, arrangements were made for the wound VAC to be the means of treatment, which has been changed every several days by home health nursing personnel. The patient had been on Xarelto and treatment for a pulmonary embolism which was diagnosed in January 2017. As result of his injury, the Xarelto has been discontinued. A noninvasive lower extremity arterial study performed in August 2016 revealed no evidence of arterial occlusive disease in the lower extremities. Therefore, there is no reason to believe there is since of any significant arterial occlusive disease. The patient has done well, showing progress with the use of the wound VAC. The patient developed cellulitis in his left lower extremity associated with fever. He was hospitalized at [facility] for approximately 4 days. He was treated initially with intravenous antibiotics consisting of Zosyn, and was subsequently discharged with a prescription for Augmentin, which has been completed. A wound VAC holiday was initiated two weeks ago, and the use of Silver Viola implemented topically since that time. 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) Iron deficiency anemia (Chronic) Pulmonary nodule (Chronic) HLD (hyperlipidemia) (Chronic) Diverticulosis (Chronic) Asthma (Chronic) Hypertension (Chronic) Osteoarthritis (Chronic) History of prostate cancer (Chronic) Allergic rhinitis (Chronic) Rheumatoid arthritis (Chronic) Pleural plaque (Chronic) Macular degeneration (Chronic) GERD (gastroesophageal reflux disease) (Chronic) Surgical History: - - Umbilical hernia repair, appendectomy, bilateral carpal tunnel surgery, Prostatectomy, Cataract surgery, L lens implant, L knee surgery followed by LTKR, L shoulder surgery, left total hip replacement. Allergies/Adverse Reactions: Allergies indomethacin [From Indocin] Allergy (Verified 11/06/17 14:54) Itching indomethacin sodium [From Indocin] Allergy (Verified 11/06/17 14:54) Itching oxycodone HCl [From Percocet] Allergy (Verified 11/06/17 14:54) Itching Home Medications: Ambulatory Orders Medication Instructions Recorded Albuterol Sulfate [Proventil Hfa] 2 puff IH BID 07/13/13 Azelastine HCl [Astelin] 2 spray NASAL BID 07/13/13 Fluticasone 0.05% [Flonase Nasal 2 spray NASAL BID 07/13/13 [place]] Montelukast [Singulair] 10 mg PO QHS 07/13/13 Sertraline HCl [Zoloft] 150 mg PO DAILY 07/13/13 Tiotropium [place] [Spiriva 18 MCG] 1 puff INHALATION DAILY 07/13/13 Atorvastatin Calcium [Lipitor] 10 mg PO QHS 10/26/14 Lisinopril [Zestril] 20 mg PO DAILY 10/26/14 Ferrous Sulfate 325 mg PO BID 07/14/15 Multivitamin [Daily Multiple 1 each PO DAILY 07/14/15 Vitamin] Omeprazole [Prilosec] 20 mg PO DAILY 07/14/15 Polyethylene Glycol 3350 [Miralax] 17 gm PO DAILY PRN 07/14/15 Ipratropium [Atrovent Aerosols] 0.5 mg INHALATION 4X/DAY PRN 09/03/16 Guaifenesin [Mucinex] 600 mg PO BID 01/12/17 Fluticasone/Salmeterol [Advair Hfa 2 puff INHALATION BID 06/22/17 230-21 Mcg Inhaler] Nystatin/Triamcin Cream [Mycolog] 1 applic TOPICAL BID PRN 06/22/17 Hydrocodone Bitart/Apap 5-325 1 tab PO Q4H PRN PRN #20 tab 09/16/17 [Cook 5/325] Lactobacillus Acidophilus 2 tab PO TID #30 tab 09/16/17 [Acidophilus] Amoxicillin/Potassium Clav 1 ea PO BID 7 Days #14 tab 11/10/17 [Augmentin 875-125 Tablet] - Family History Sibling Diabetes, Renal Disease, - - Patient's father at the age of 76 with history of colon cancer myocardial infarction. Patient's mother at age of 86 with a history of breast cancer. Maternal Cancer Paternal Cancer Smoking Status: Never smoker Tobacco Use: Non-smoker Review of Systems Constitutional: Denies: Chills, Fever, Weight Change Eyes: Denies: Pain, Vision Change HEENT: Denies: Difficulty Hearing, Difficulty Swallowing, Sinus Congestion Cardiovascular: Denies: Chest Pain, Palpitations Respiratory: Denies: Cough, Shortness of Breath Gastrointestinal: Denies: Diarrhea, Nausea, Vomiting Genitourinary: Denies: Dysuria, Hematuria Endocrine: Denies: Heat/ Cold Intolerance, Polydipsia, Polyuria Hematologic/ Lymphatic: Denies: Easy Bruising, Easy Bleeding - Physical Exam Vital Signs Temp Pulse Resp BP 97.8 F 90 16 135/79 H 12/02/17 10:22 12/02/17 10:22 12/02/17 10:22 12/02/17 10:22 General: Alert, Oriented x3, Cooperative, No apparent distress, Well developed, Well nourished HEENT: Atraumatic, PERRLA, EOMI, Normocephalic Oral: Moist Mucosa Neck: No JVD Lungs: Normal air movement Abdomen: Non-Distended Extremities: No clubbing, No cyanosis, No edema, No Calf Tenderness, - - There is no significant swelling or edema in the lower extremities. The traumatic wound on the left lateral calf continues to improve. It is smaller in size. There is evidence of significant peripheral epithelialization. The base of the wound is pink and healthy in appearance, with active granulation tissue. There is no sign of infection or cellulitis. Skin: No rashes Wound Measurements and Assessment WC - Nurse 1 - General Ulcer Measurement Start: 11/18/17 11:45 Freq: Status: Active Protocol: Activity Type Activity Date Activity User E-Sign Co-Sign Detail Recorded Client Recorded Date Recorded By Document 12/02/17 10:22 DL [id number] 12/02/17 10:30 DL 12/02/17 10:22 Wound Center Nurse 1 [Ulcer Assessment] #7 LATERAL LLE- POST OP 09/12/17 -Current Size (cm) - Length 18.5 -Current Size (cm) - Width 2.4 -Current Size (cm) - Depth 0.1 -Total Square Cm 44.40 -Photo Taken No -Exudate Amt Medium (34-66%) -Exudate Type Serosanguineous -Wound Margin Distinct, Outline Attached -Granulation Amt Large (67-100%) -Granulation Quality Red -Necrosis Amt Small (1-33%) -Necrotic Tissue Type Adherent Slough -Structure Exposed N/A -Texture (Karin-wound Skin Appearance) Scarring -Moisture (Karin-wound Skin Appearance Dry/Scaly ) -Color (Karin-wound Skin Appearance) Hemosiderin Staining -Temperature (Karin-wound Skin No Abnormality Appearance) (Pt Warm) -Tenderness on Palpation (Karin-wound No Skin Appearance) -Ulcer Cleansing Wound Cleanser -Foul Odor after Cleansing No -Anesthetic Used 4% Lidocaine Solution [Edema Assessment] -Left Calf (cm) 35.5 -Left Ankle (cm) 22.5 WC - Nurse 2 - General Ulcer CM Notes Start: 11/18/17 11:45 Freq: Status: Active Protocol: Activity Type Activity Date Activity User E-Sign Co-Sign Detail Recorded Client Recorded Date Recorded By Document 12/02/17 10:49 JS [id number] 12/02/17 10:58 JS 12/02/17 10:49 Wound Center Nurse 2 [Procedure/Treatment] #7 LATERAL LLE- POST OP 09/12/17 -Time 10:49 -Correct Patient Yes -Correct Side, Site, Position Yes -Correct Procedure Yes -Procedure Performed Yes -Type of Procedure Debridement -Clinical Debridement Subcutaneous -Post Debridement Size (cm) - Length 19.0 -Post Debridement Size (cm) - Width 2.4 -Post Debridement Size (cm) - Depth 0.1 -Total Square Cm 45.60 -Wound/Ulcer Outcome Not Healed -Ulcer Cleansing Rinsed/ Irrigated with Saline -Foul Odor after Cleansing No -Bioengineered Tissue No -Topical Lidocaine (%) 4 -Lidocaine (ml) 10 -Bleeding Controlled with NA -Treatment Response Procedure Tolerated Well [See Physician Procedure note for Specifics] Pain Scale: 0-10 Numeric [Pain] -Is Patient Pain Free? Yes Musculoskeletal: No Muscle Wasting Neurological: Cranial nerves II-XII grossly intact, Neuro grossly intact Psych/Mental Status: Normal Affect, Appropriate, Alert and oriented to time, place, person, mood and affect Debridement Note Post-Debridement Measurements/Treatment WC - Nurse 2 - General Ulcer CM Notes Start: 11/18/17 11:45 Freq: Status: Active Protocol: Activity Type Activity Date Activity User E-Sign Co-Sign Detail Recorded Client Recorded Date Recorded By Document 11/18/17 12:31 [id number] 11/18/17 12:32 Document 11/25/17 10:33 [id number] 11/25/17 10:34 Document 12/02/17 10:49 [id number] 12/02/17 10:58 11/18/17 11/25/17 12/02/17 12:31 10:33 10:49 Wound Center Nurse 2 #7 LATERAL LLE- POST OP 09/12/17 -Time 12:31 10:33 10:49 -Correct Patient Yes Yes Yes -Correct Side, Site, Position Yes Yes Yes -Correct Procedure Yes Yes Yes -Procedure Performed No Yes Yes -Type of Procedure Debridement Debridement -Clinical Debridement Subcutaneous Subcutaneous -Post Debridement Size (cm) - Length 20.6 19.0 -Post Debridement Size (cm) - Width 2.5 2.4 -Post Debridement Size (cm) - Depth 0.1 0.1 -Total Square Cm 51.50 45.60 -Wound/Ulcer Outcome Not Healed Not Healed Not Healed -Ulcer Cleansing Rinsed/ Rinsed/ Rinsed/ Irrigated with Irrigated with Irrigated with Saline Saline Saline -Foul Odor after Cleansing No No No -Bioengineered Tissue No No No -Topical Lidocaine (%) 4 4 -Lidocaine (ml) 15 10 -Bleeding Controlled with NA Pressure NA -Treatment Response Procedure Procedure Tolerated Well Tolerated Well Pain Scale: 0-10 Numeric Is Patient Pain Free? Yes Yes Yes Laterality: Left - Lateral calf Type of Debridement: Excisional debridement Anesthesia Used: 4% Lidocaine Solution Depth: Down to and including healthy tissue, in the subcutaneous layer Percentage of wound debrided: 100 Instrument Used: 5mm curette Severity: Fat Layer Exposed Amount of bleeding with debridement: Mild Bleeding Controlled with: Compression and gauze Patient tolerated procedure well Assessment/Plan Active Problems Open wound (Acute) Open wound of left lower leg (Acute) Traumatic open wound of left lower leg (Acute) Leg swelling (Chronic) Traumatic wound (Acute) Open wound of left lower extremity (Acute) Assessment: This is a 77-year-old male with a traumatic injury to the left lateral calf. The patient appears to be responding well to current measures, which has included the use of Silver Viola topically for the last 2 weeks. Plan: We will continue the use of Silver Viola. This will be applied every other day. Patient has shown significant progress. Patient will return in 2 weeks for reassessment. Intake of a well-balanced and nutritious diet has been advised. Patient has been advised to elevate his lower extremities, to minimize swelling and edema. The patient is not a smoker. Influenza vaccine was not administered today. Patient stands 5 feet 4 inches tall. He weighs 210 pounds. His BMI is 36.0, which places him in a class II category. Weight loss has been recommended, with collaboration with his primary care physician.
[2017-12-16 10:37] VITALS: BP 130/76; PULSE 98; RESP 18; TEMP 36.8
--- NOTE | 2017-12-16 12:13 | HP.PCM_ITS ---
(1) Obesity Status: Chronic Current Visit: No Code(s): E66.9 - Obesity, unspecified (2) Open wound Status: Acute Current Visit: Yes Code(s): T14.8 - Other injury of unspecified body region (3) Open wound of left lower leg Status: Acute Current Visit: Yes Qualifiers: Encounter type: subsequent encounter Code(s): S81.802A - Unspecified open wound, left lower leg, initial encounter (4) Traumatic open wound of left lower leg Status: Acute Current Visit: Yes Qualifiers: Encounter type: subsequent encounter Code(s): S81.802A - Unspecified open wound, left lower leg, initial encounter (5) Leg swelling Status: Chronic Current Visit: Yes Code(s): M79.89 - Other specified soft tissue disorders (6) Traumatic wound Status: Acute Current Visit: Yes (7) Open wound of left lower extremity Status: Acute Current Visit: Yes Qualifiers: Encounter type: subsequent encounter Code(s): S81.802A - Unspecified open wound, left lower leg, initial encounter (8) History of pulmonary embolism Status: Chronic Current Visit: No Code(s): Z86.711 - Personal history of pulmonary embolism (9) 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 Current Visit: No Code(s): L97.929 - Non-pressure chronic ulcer of unspecified part of left lower leg with unspecified severity; L08.9 - Local infection of the skin and subcutaneous tissue, unspecified (10) Iron deficiency anemia Status: Chronic Current Visit: No Code(s): D50.9 - Iron deficiency anemia, unspecified (11) Pulmonary nodule Status: Chronic Current Visit: No Code(s): R91.1 - Solitary pulmonary nodule (12) HLD (hyperlipidemia) Status: Chronic Current Visit: No Code(s): E78.5 - Hyperlipidemia, unspecified (13) Diverticulosis Status: Chronic Current Visit: No Code(s): K57.90 - Diverticulosis of intestine, part unspecified, without perforation or abscess without bleeding (14) Asthma Status: Chronic Current Visit: No Code(s): J45.909 - Unspecified asthma, uncomplicated (15) Hypertension Status: Chronic Current Visit: No Qualifiers: Code(s): I10 - Essential (primary) hypertension (16) Osteoarthritis Status: Chronic Current Visit: No (17) History of prostate cancer Status: Chronic Current Visit: No Code(s): Z85.46 - Personal history of malignant neoplasm of prostate (18) Allergic rhinitis Status: Chronic Current Visit: No Code(s): J30.9 - Allergic rhinitis, unspecified (19) Rheumatoid arthritis Status: Chronic Current Visit: No Code(s): M06.9 - Rheumatoid arthritis, unspecified (20) Pleural plaque Status: Chronic Current Visit: No Code(s): J92.9 - Pleural plaque without asbestos (21) Macular degeneration Status: Chronic Current Visit: No Code(s): H35.30 - Unspecified macular degeneration (22) GERD (gastroesophageal reflux disease) Status: Chronic Current Visit: No Code(s): K21.9 - Gastro-esophageal reflux disease without esophagitis History of Present Illness Date of Service: 12/16/17 Chief Complaint: Recent traumatic injury of the left lower extremity with residual open wound History of Wound: This is a 77-year-old male who was in his normal state of health until September 06, 2017, at which time he sustained an injury to the left lateral calf, the result of a shovel which impaled into his left leg. The patient was rushed to the emergency department on that date, where he was treated by means of wound closure using sutures. Four days later, he had developed a cellulitis, and was admitted to the hospital for treatment. Patient was treated with antibiotics, and subsequently underwent wide surgical debridement of necrotic tissue by Dr. Homero Chin on September 12, 2017. Patient was discharged on September 16, 2017. He was discharged on Cipro 500 mg p.o. twice daily and Augmentin 875 mg p.o. twice daily. At the time of discharge, arrangements were made for the wound VAC to be the means of treatment, which has been changed every several days by home health nursing personnel. The patient had been on Xarelto and treatment for a pulmonary embolism which was diagnosed in January 2017. As result of his injury, the Xarelto has been discontinued. A noninvasive lower extremity arterial study performed in August 2016 revealed no evidence of arterial occlusive disease in the lower extremities. Therefore, there is no reason to believe there is since of any significant arterial occlusive disease. The patient has done well, showing progress with the use of the wound VAC. The patient developed cellulitis in his left lower extremity associated with fever. He was hospitalized at [facility] for approximately 4 days. He was treated initially with intravenous antibiotics consisting of Zosyn, and was subsequently discharged with a prescription for Augmentin, which has been completed. The wound VAC was discontinued, and alternative means have been implemented since that time. Silver Viola is currently being applied topically every other day. 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) Iron deficiency anemia (Chronic) Pulmonary nodule (Chronic) HLD (hyperlipidemia) (Chronic) Diverticulosis (Chronic) Asthma (Chronic) Hypertension (Chronic) Osteoarthritis (Chronic) History of prostate cancer (Chronic) Allergic rhinitis (Chronic) Rheumatoid arthritis (Chronic) Pleural plaque (Chronic) Macular degeneration (Chronic) GERD (gastroesophageal reflux disease) (Chronic) Surgical History: - - Umbilical hernia repair, appendectomy, bilateral carpal tunnel surgery, Prostatectomy, Cataract surgery, L lens implant, L knee surgery followed by LTKR, L shoulder surgery, left total hip replacement. Allergies/Adverse Reactions: Allergies indomethacin [From Indocin] Allergy (Verified 12/06/17 11:12) Itching indomethacin sodium [From Indocin] Allergy (Verified 12/06/17 11:12) Itching oxycodone HCl [From Percocet] Allergy (Verified 12/06/17 11:12) Itching Home Medications: Ambulatory Orders Medication Instructions Recorded Albuterol Sulfate [Proventil Hfa] 2 puff IH BID 07/13/13 Azelastine HCl [Astelin] 2 spray NASAL BID 07/13/13 Fluticasone 0.05% [Flonase Nasal 2 spray NASAL BID 07/13/13 [place]] Montelukast [Singulair] 10 mg PO QHS 07/13/13 Sertraline HCl [Zoloft] 150 mg PO DAILY 07/13/13 Tiotropium [place] [Spiriva 18 MCG] 1 puff INHALATION DAILY 07/13/13 Atorvastatin Calcium [Lipitor] 10 mg PO QHS 10/26/14 Lisinopril [Zestril] 20 mg PO DAILY 10/26/14 Ferrous Sulfate 325 mg PO BID 07/14/15 Multivitamin [Daily Multiple 1 each PO DAILY 07/14/15 Vitamin] Omeprazole [Prilosec] 20 mg PO DAILY 07/14/15 Polyethylene Glycol 3350 [Miralax] 17 gm PO DAILY PRN 07/14/15 Ipratropium [Atrovent Aerosols] 0.5 mg INHALATION 4X/DAY PRN 09/03/16 Guaifenesin [Mucinex] 600 mg PO BID 01/12/17 Fluticasone/Salmeterol [Advair Hfa 2 puff INHALATION BID 06/22/17 230-21 Mcg Inhaler] Nystatin/Triamcin Cream [Mycolog] 1 applic TOPICAL BID PRN 06/22/17 Hydrocodone Bitart/Apap 5-325 1 tab PO Q4H PRN PRN #20 tab 09/16/17 [[place] 5/325] Lactobacillus Acidophilus 2 tab PO TID #30 tab 09/16/17 [Acidophilus] Amoxicillin/Potassium Clav 1 ea PO BID 7 Days #14 tab 11/10/17 [Augmentin 875-125 Tablet] Prednisone [Deltasone] 60 mg PO DAILY #15 tab 12/06/17 - Family History Sibling Diabetes, Renal Disease, - - Patient's father at the age of 76 with history of colon cancer myocardial infarction. Patient's mother at age of 86 with a history of breast cancer. Maternal Cancer Paternal Cancer Smoking Status: Never smoker Tobacco Use: Non-smoker Review of Systems Constitutional: Denies: Chills, Fever, Weight Change Eyes: Denies: Pain, Vision Change HEENT: Denies: Difficulty Hearing, Difficulty Swallowing, Sinus Congestion Cardiovascular: Denies: Chest Pain, Palpitations Respiratory: Denies: Cough, Shortness of Breath Gastrointestinal: Denies: Diarrhea, Nausea, Vomiting Genitourinary: Denies: Dysuria, Hematuria Endocrine: Denies: Heat/ Cold Intolerance, Polydipsia, Polyuria Hematologic/ Lymphatic: Denies: Easy Bruising, Easy Bleeding - Physical Exam Vital Signs Temp Pulse Resp BP 98.2 F 98 18 130/76 H 12/16/17 10:37 12/16/17 10:37 12/16/17 10:37 12/16/17 10:37 General: Alert, Oriented x3, Cooperative, No apparent distress, Well developed, Well nourished HEENT: Atraumatic, PERRLA, EOMI, Normocephalic Oral: Moist Mucosa Neck: No JVD Lungs: Normal air movement Abdomen: Non-Distended Extremities: No clubbing, No cyanosis, No edema, No Calf Tenderness, - - The traumatic wound on the left lateral calf continues to diminish significantly in size. Dimensions are documented elsewhere. There is evidence of peripheral epithelialization. There is no sign of infection or cellulitis. The base of the wound is pink and healthy in appearance, with evidence of active granulation tissue. Only minimal to mild bioburden is present. Skin: No rashes Wound Measurements and Assessment WC - Nurse 1 - General Ulcer Measurement Start: 11/18/17 11:45 Freq: Status: Active Protocol: Activity Type Activity Date Activity User E-Sign Co-Sign Detail Recorded Client Recorded Date Recorded By Document 12/16/17 10:37 [id number] 12/16/17 10:40 12/16/17 10:37 Wound Center Nurse 1 [Ulcer Assessment] #7 LATERAL LLE- POST OP 09/12/17 -Combined with other wound No -Current Size (cm) - Length 18.5 -Current Size (cm) - Width 1.4 -Current Size (cm) - Depth 0.1 -Total Square Cm 25.90 -Date of Last Picture (Recall this 12/16/17 field) -Photo Taken Yes -Epithelialization Small 1-33% -Tunneling No -Undermining/Tunneling No -Circular Undermining No -Exudate Amt Medium (34-66%) -Exudate Type Serosanguineous -Wound Margin Distinct, Outline Attached -Granulation Amt Medium (34-66%) -Granulation Quality [place] Red -Slough/Fibrin Yes -Necrosis Amt Medium (34-66%) -Necrotic Tissue Type Adherent Slough -Structure Exposed None/Limited to Skin Breakdown -Texture (Karin-wound Skin Appearance) Assessed Scarring -Moisture (Karin-wound Skin Appearance No Abnormality ) Assessed -Color (Karin-wound Skin Appearance) No Abnormality Assessed -Temperature (Karin-wound Skin No Abnormality Appearance) (Pt Warm) -Tenderness on Palpation (Karin-wound No Skin Appearance) -Ulcer Cleansing Rinsed/ Irrigated with Saline -Foul Odor after Cleansing No -Anesthetic Used 4% Lidocaine Solution [Edema Assessment] -Lower Limb Edema Present NA WC - Nurse 2 - General Ulcer CM Notes Start: 11/18/17 11:45 Freq: Status: Active Protocol: Activity Type Activity Date Activity User E-Sign Co-Sign Detail Recorded Client Recorded Date Recorded By Document 12/16/17 11:38 [id number] 12/16/17 11:44 12/16/17 11:38 Wound Center Nurse 2 [Procedure/Treatment] #7 LATERAL LLE- POST OP 09/12/17 -Time 11:38 -Correct Patient Yes -Correct Side, Site, Position Yes -Correct Procedure Yes -Procedure Performed Yes -Type of Procedure Debridement -Clinical Debridement Subcutaneous -Post Debridement Size (cm) - Length 17.0 -Post Debridement Size (cm) - Width 1.7 -Post Debridement Size (cm) - Depth 0.1 -Total Square Cm 28.90 -Wound/Ulcer Outcome Not Healed -Ulcer Cleansing Rinsed/ Irrigated with Saline -Foul Odor after Cleansing No -Bioengineered Tissue No -Topical Lidocaine (%) 4 -Lidocaine (ml) 15 -Bleeding Controlled with NA -Treatment Response Procedure Tolerated Well [See Physician Procedure note for Specifics] Musculoskeletal: No Muscle Wasting Neurological: Cranial nerves II-XII grossly intact, Neuro grossly intact Psych/Mental Status: Normal Affect, Appropriate, Alert and oriented to time, place, person, mood and affect Debridement Note Post-Debridement Measurements/Treatment WC - Nurse 2 - General Ulcer CM Notes Start: 11/18/17 11:45 Freq: Status: Active Protocol: Activity Type Activity Date Activity User E-Sign Co-Sign Detail Recorded Client Recorded Date Recorded By Document 11/18/17 12:31 [id number] 11/18/17 12:32 Document 11/25/17 10:33 [id number] 11/25/17 10:34 Document 12/02/17 10:49 [id number] 12/02/17 10:58 Document 12/16/17 11:38 [id number] 12/16/17 11:44 JS 11/18/17 11/25/17 12/02/17 12:31 10:33 10:49 Wound Center Nurse 2 #7 LATERAL LLE- POST OP 09/12/17 -Time 12:31 10:33 10:49 -Correct Patient Yes Yes Yes -Correct Side, Site, Position Yes Yes Yes -Correct Procedure Yes Yes Yes -Procedure Performed No Yes Yes -Type of Procedure Debridement Debridement -Clinical Debridement Subcutaneous Subcutaneous -Post Debridement Size (cm) - Length 20.6 19.0 -Post Debridement Size (cm) - Width 2.5 2.4 -Post Debridement Size (cm) - Depth 0.1 0.1 -Total Square Cm 51.50 45.60 -Wound/Ulcer Outcome Not Healed Not Healed Not Healed -Ulcer Cleansing Rinsed/ Rinsed/ Rinsed/ Irrigated with Irrigated with Irrigated with Saline Saline Saline -Foul Odor after Cleansing No No No -Bioengineered Tissue No No No -Topical Lidocaine (%) 4 4 -Lidocaine (ml) 15 10 -Bleeding Controlled with NA Pressure NA -Treatment Response Procedure Procedure Tolerated Well Tolerated Well Pain Scale: 0-10 Numeric Is Patient Pain Free? Yes Yes Yes 12/16/17 11:38 Wound Center Nurse 2 #7 LATERAL LLE- POST OP 09/12/17 -Time 11:38 -Correct Patient Yes -Correct Side, Site, Position Yes -Correct Procedure Yes -Procedure Performed Yes -Type of Procedure Debridement -Clinical Debridement Subcutaneous -Post Debridement Size (cm) - Length 17.0 -Post Debridement Size (cm) - Width 1.7 -Post Debridement Size (cm) - Depth 0.1 -Total Square Cm 28.90 -Wound/Ulcer Outcome Not Healed -Ulcer Cleansing Rinsed/ Irrigated with Saline -Foul Odor after Cleansing No -Bioengineered Tissue No -Topical Lidocaine (%) 4 -Lidocaine (ml) 15 -Bleeding Controlled with NA -Treatment Response Procedure Tolerated Well Pain Scale: 0-10 Numeric Is Patient Pain Free? Laterality: Left - Lateral calf Type of Debridement: Excisional debridement Anesthesia Used: 4% Lidocaine Solution Depth: Down to and including healthy tissue, in the subcutaneous layer Percentage of wound debrided: 100 Instrument Used: 5mm curette Severity: Fat Layer Exposed Amount of bleeding with debridement: Mild Bleeding Controlled with: Compression and gauze Patient tolerated procedure well Assessment/Plan Active Problems Open wound (Acute) Open wound of left lower leg (Acute) Traumatic open wound of left lower leg (Acute) Leg swelling (Chronic) Traumatic wound (Acute) Open wound of left lower extremity (Acute) Assessment: This is a 77-year-old male with a traumatic injury to the left lateral calf. The patient appears to be responding well to current measures, which has included the use of Silver Viola topically for the last several weeks. Plan: We will continue the use of Silver Viola. This will be applied every other day. Patient has shown significant progress. Patient will return in 1 week for reassessment. Intake of a well-balanced and nutritious diet has been advised. Patient has been advised to elevate his lower extremities, to minimize swelling and edema. The patient is not a smoker. Influenza vaccine was not administered today. Patient stands 5 feet 4 inches tall. He weighs 210 pounds. His BMI is 36.0, which places him in a class II category. Weight loss has been recommended, with collaboration with his primary care physician.
== END 2017-12-16 23:59 ==
LOC: WC 10:30
PROVIDERS: Family Provider Internal Medicine; PCP Internal Medicine; Visit Provider Surgery
DX: S81.832A Puncture wound without foreign body, left lower leg, initial encounter (principal); W22.8XXA Striking against or struck by other objects, initial encounter; M79.89 Other specified soft tissue disorders; Z86.711 Personal history of pulmonary embolism; M06.9 Rheumatoid arthritis, unspecified; K21.9 Gastro-esophageal reflux disease without esophagitis; Z85.46 Personal history of malignant neoplasm of prostate; I10 Essential (primary) hypertension; M19.90 Unspecified osteoarthritis, unspecified site; J45.909 Unspecified asthma, uncomplicated; E78.5 Hyperlipidemia, unspecified; R91.1 Solitary pulmonary nodule; Z79.899 Other long term (current) drug therapy; Z79.51 Long term (current) use of inhaled steroids; D50.9 Iron deficiency anemia, unspecified
CPT/HCPCS: 11042; 11045; 99212; G0463

== ENCOUNTER 2018-01-13 11:30 | Outpatient (RCR) | payer MEDICARE, SELFPAY ==
[2017-12-17 00:55] VITALS: BP 130/76; PULSE 98; RESP 18; TEMP 36.8
[2017-12-23 12:07] VITALS: BP 135/61; PULSE 115; RESP 18; TEMP 36.7
--- NOTE | 2017-12-23 12:35 | PCM.WC.HP ---
(1) Obesity Status: Chronic Current Visit: No Code(s): E66.9 - Obesity, unspecified (2) Open wound Status: Chronic Current Visit: Yes Code(s): T14.8 - Other injury of unspecified body region (3) Open wound of left lower leg Status: Chronic Current Visit: Yes Qualifiers: Encounter type: subsequent encounter Code(s): S81.802A - Unspecified open wound, left lower leg, initial encounter (4) Traumatic open wound of left lower leg Status: Chronic Current Visit: Yes Qualifiers: Encounter type: subsequent encounter Code(s): S81.802A - Unspecified open wound, left lower leg, initial encounter (5) Leg swelling Status: Chronic Current Visit: Yes Code(s): M79.89 - Other specified soft tissue disorders (6) Traumatic wound Status: Chronic Current Visit: Yes (7) Open wound of left lower extremity Status: Chronic Current Visit: Yes Qualifiers: Encounter type: subsequent encounter Code(s): S81.802A - Unspecified open wound, left lower leg, initial encounter (8) Cellulitis of left leg Status: Resolved Current Visit: No Code(s): L03.116 - Cellulitis of left lower limb (9) History of pulmonary embolism Status: Chronic Current Visit: No Code(s): Z86.711 - Personal history of pulmonary embolism (10) 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 Status: Resolved Current Visit: No Code(s): L97.929 - Non-pressure chronic ulcer of unspecified part of left lower leg with unspecified severity; L08.9 - Local infection of the skin and subcutaneous tissue, unspecified (11) Iron deficiency anemia Status: Chronic Current Visit: No Code(s): D50.9 - Iron deficiency anemia, unspecified (12) Pulmonary nodule Status: Chronic Current Visit: No Code(s): R91.1 - Solitary pulmonary nodule (13) HLD (hyperlipidemia) Status: Chronic Current Visit: No Code(s): E78.5 - Hyperlipidemia, unspecified (14) Diverticulosis Status: Chronic Current Visit: No Code(s): K57.90 - Diverticulosis of intestine, part unspecified, without perforation or abscess without bleeding (15) Asthma Status: Chronic Current Visit: No Code(s): J45.909 - Unspecified asthma, uncomplicated (16) Hypertension Status: Chronic Current Visit: No Qualifiers: Code(s): I10 - Essential (primary) hypertension (17) Osteoarthritis Status: Chronic Current Visit: No (18) Penetrating injury right leg Status: Resolved Current Visit: No (19) History of prostate cancer Status: Chronic Current Visit: No Code(s): Z85.46 - Personal history of malignant neoplasm of prostate (20) Allergic rhinitis Status: Chronic Current Visit: No Code(s): J30.9 - Allergic rhinitis, unspecified (21) Rheumatoid arthritis Status: Chronic Current Visit: No Code(s): M06.9 - Rheumatoid arthritis, unspecified (22) Pleural plaque Status: Chronic Current Visit: No Code(s): J92.9 - Pleural plaque without asbestos (23) Macular degeneration Status: Chronic Current Visit: No Code(s): H35.30 - Unspecified macular degeneration (24) GERD (gastroesophageal reflux disease) Status: Chronic Current Visit: No Code(s): K21.9 - Gastro-esophageal reflux disease without esophagitis History of Present Illness Date of Service: 12/23/17 Chief Complaint: Recent traumatic injury of the left lower extremity with residual open wound History of Wound: This is a 77-year-old male who was in his normal state of health until September 06, 2017, at which time he sustained an injury to the left lateral calf, the result of a shovel which impaled into his left leg. The patient was rushed to the emergency department on that date, where he was treated by means of wound closure using sutures. Four days later, he had developed a cellulitis, and was admitted to the hospital for treatment. Patient was treated with antibiotics, and subsequently underwent wide surgical debridement of necrotic tissue by Dr. Homero Chin on September 12, 2017. Patient was discharged on September 16, 2017. He was discharged on Cipro 500 mg p.o. twice daily and Augmentin 875 mg p.o. twice daily. At the time of discharge, arrangements were made for the wound VAC to be the means of treatment, which has been changed every several days by home health nursing personnel. The patient had been on Xarelto and treatment for a pulmonary embolism which was diagnosed in January 2017. As result of his injury, the Xarelto has been discontinued. A noninvasive lower extremity arterial study performed in August 2016 revealed no evidence of arterial occlusive disease in the lower extremities. Therefore, there is no reason to believe there is since of any significant arterial occlusive disease. The patient has done well, showing progress with the use of the wound VAC. The patient developed cellulitis in his left lower extremity associated with fever. He was hospitalized at [facility] for approximately 4 days. He was treated initially with intravenous antibiotics consisting of Zosyn, and was subsequently discharged with a prescription for Augmentin, which has been completed. The wound VAC was discontinued, and alternative means have been implemented since that time. Silver Viola is currently being applied topically every other day. Past Medical History Past Medical History: Chronic Problems Obesity (Chronic) Open wound (Chronic) Open wound of left lower leg (Chronic) Traumatic open wound of left lower leg (Chronic) Leg swelling (Chronic) Traumatic wound (Chronic) Open wound of left lower extremity (Chronic) History of pulmonary embolism (Chronic) Iron deficiency anemia (Chronic) Pulmonary nodule (Chronic) HLD (hyperlipidemia) (Chronic) Diverticulosis (Chronic) Asthma (Chronic) Hypertension (Chronic) Osteoarthritis (Chronic) History of prostate cancer (Chronic) Allergic rhinitis (Chronic) Rheumatoid arthritis (Chronic) Pleural plaque (Chronic) Macular degeneration (Chronic) GERD (gastroesophageal reflux disease) (Chronic) Surgical History: - - Umbilical hernia repair, appendectomy, bilateral carpal tunnel surgery, Prostatectomy, Cataract surgery, L lens implant, L knee surgery followed by LTKR, L shoulder surgery, left total hip replacement. Allergies/Adverse Reactions: Allergies indomethacin [From Indocin] Allergy (Verified 12/06/17 11:12) Itching indomethacin sodium [From Indocin] Allergy (Verified 12/06/17 11:12) Itching oxycodone HCl [From Percocet] Allergy (Verified 12/06/17 11:12) Itching Home Medications: Ambulatory Orders Medication Instructions Recorded Albuterol Sulfate [Proventil Hfa] 2 puff IH BID 07/13/13 Azelastine HCl [Astelin] 2 spray NASAL BID 07/13/13 Fluticasone 0.05% [Flonase Nasal 2 spray NASAL BID 07/13/13 Combined [place]] Montelukast [Singulair] 10 mg PO QHS 07/13/13 Sertraline HCl [Zoloft] 150 mg PO DAILY 07/13/13 Tiotropium [place] [Spiriva 18 MCG] 1 puff INHALATION DAILY 07/13/13 Atorvastatin Calcium [Lipitor] 10 mg PO QHS 10/26/14 Lisinopril [Zestril] 20 mg PO DAILY 10/26/14 Ferrous Sulfate 325 mg PO BID 07/14/15 Multivitamin [Daily Multiple 1 each PO DAILY 07/14/15 Vitamin] Omeprazole [Prilosec] 20 mg PO DAILY 07/14/15 Polyethylene Glycol 3350 [Miralax] 17 gm PO DAILY PRN 07/14/15 Ipratropium [Atrovent Aerosols] 0.5 mg INHALATION 4X/DAY PRN 09/03/16 Guaifenesin [Mucinex] 600 mg PO BID 01/12/17 Fluticasone/Salmeterol [Advair Hfa 2 puff INHALATION BID 06/22/17 230-21 Mcg Inhaler] Nystatin/Triamcin Cream [Mycolog] 1 applic TOPICAL BID PRN 06/22/17 Hydrocodone Bitart/Apap 5-325 1 tab PO Q4H PRN PRN #20 tab 09/16/17 [[place] 5/325] Lactobacillus Acidophilus 2 tab PO TID #30 tab 09/16/17 [Acidophilus] Amoxicillin/Potassium Clav 1 ea PO BID 7 Days #14 tab 11/10/17 [Augmentin 875-125 Tablet] Prednisone [Deltasone] 60 mg PO DAILY #15 tab 12/06/17 - Family History Sibling Diabetes, Renal Disease, - - Patient's father at the age of 76 with history of colon cancer myocardial infarction. Patient's mother at age of 86 with a history of breast cancer. Maternal Cancer Paternal Cancer Smoking Status: Never smoker Tobacco Use: Non-smoker Review of Systems Constitutional: Denies: Chills, Fever, Weight Change Eyes: Denies: Pain, Vision Change HEENT: Denies: Difficulty Hearing, Difficulty Swallowing, Sinus Congestion Cardiovascular: Denies: Chest Pain, Palpitations Respiratory: Denies: Cough, Shortness of Breath Gastrointestinal: Denies: Diarrhea, Nausea, Vomiting Genitourinary: Denies: Dysuria, Hematuria Endocrine: Denies: Heat/ Cold Intolerance, Polydipsia, Polyuria Hematologic/ Lymphatic: Denies: Easy Bruising, Easy Bleeding - Physical Exam Vital Signs Temp Pulse Resp BP 98.0 F 115 H 18 135/61 H 12/23/17 12:07 12/23/17 12:07 12/23/17 12:07 12/23/17 12:07 General: Alert, Oriented x3, Cooperative, No apparent distress, Well developed, Well nourished HEENT: Atraumatic, PERRLA, EOMI, Normocephalic Oral: Moist Mucosa Neck: No JVD Lungs: Normal air movement Abdomen: Non-Distended Extremities: No clubbing, No cyanosis, No Calf Tenderness, - - No significant swelling or edema is noted in the left lower extremity. The traumatic wound on the left lateral calf continues to improve. It is smaller in size. There is evidence of peripheral epithelialization. There is now a skin bridge in the midportion of the wound. The base of the wound is pink and healthy in appearance, with active granulation tissue. There is only a small amount of bioburden present. Dimensions are documented elsewhere. Skin: No rashes Wound Measurements and Assessment WC - Nurse 1 - General Ulcer Measurement Start: 12/23/17 12:07 Freq: Status: Active Protocol: Activity Type Activity Date Activity User E-Sign Co-Sign Detail Recorded Client Recorded Date Recorded By Document 12/23/17 12:07 [email or web address] [id number] 12/23/17 12:18 [email or web address] 12/23/17 12:07 Wound Center Nurse 1 [Ulcer Assessment] #7 LATERAL LLE- POST OP 09/12/17 -Combined with other wound No -Current Size (cm) - Length 18.0 -Current Size (cm) - Width 1.1 -Current Size (cm) - Depth 0.1 -Total Square Cm 19.80 -Photo Taken Yes -Epithelialization Medium 34-66% -Tunneling No -Undermining/Tunneling No -Circular Undermining No -Exudate Amt Small (1-33%) -Exudate Type Serosanguineous -Wound Margin Flat & Intact -Granulation Amt Large (67-100%) -Granulation Quality Red -Slough/Fibrin Yes -Necrosis Amt Medium (34-66%) -Necrotic Tissue Type Adherent Slough -Structure Exposed N/A -Texture (Karin-wound Skin Appearance) Assessed Localized Edema Scarring -Moisture (Karin-wound Skin Appearance Assessed ) Dry/Scaly -Color (Karin-wound Skin Appearance) Assessed Hemosiderin Staining -Temperature (Karin-wound Skin No Abnormality Appearance) (Pt Warm) -Tenderness on Palpation (Karin-wound No Skin Appearance) -Ulcer Cleansing Rinsed/ Irrigated with Saline -Foul Odor after Cleansing No -Anesthetic Used 4% Lidocaine Solution [Edema Assessment] -Lower Limb Edema Present Yes -Left Calf (cm) 36.4 -Left Ankle (cm) 21.8 - Nurse 2 - General Ulcer CM Notes Start: 12/23/17 12:07 Freq: Status: Active Protocol: Activity Type Activity Date Activity User E-Sign Co-Sign Detail Recorded Client Recorded Date Recorded By Document 12/23/17 12:28 [id number] 12/23/17 12:30 12/23/17 12:28 Wound Center Nurse 2 [Procedure/Treatment] #7 LATERAL LLE- POST OP 09/12/17 -Time 12:29 -Correct Patient Yes -Correct Side, Site, Position Yes -Correct Procedure Yes -Procedure Performed Yes -Type of Procedure Debridement -Clinical Debridement Subcutaneous -Post Debridement Size (cm) - Length 18.2 -Post Debridement Size (cm) - Width 1.2 -Post Debridement Size (cm) - Depth 0.1 -Total Square Cm 21.84 -Wound/Ulcer Outcome Not Healed -Ulcer Cleansing Rinsed/ Irrigated with Saline -Foul Odor after Cleansing No -Bioengineered Tissue No -Bleeding Controlled with NA -Treatment Response Procedure Tolerated Well [See Physician Procedure note for Specifics] Pain Scale: 0-10 Numeric [Pain] -Is Patient Pain Free? Yes Musculoskeletal: No Muscle Wasting Neurological: Cranial nerves II-XII grossly intact, Neuro grossly intact Psych/Mental Status: Normal Affect, Appropriate, Alert and oriented to time, place, person, mood and affect Debridement Note Post-Debridement Measurements/Treatment - Nurse 2 - General Ulcer CM Notes Start: 12/23/17 12:07 Freq: Status: Active Protocol: Activity Type Activity Date Activity User E-Sign Co-Sign Detail Recorded Client Recorded Date Recorded By Document 12/23/17 12:28 [id number] 12/23/17 12:30 12/23/17 12:28 Wound Center Nurse 2 #7 LATERAL LLE- POST OP 09/12/17 -Time 12:29 -Correct Patient Yes -Correct Side, Site, Position Yes -Correct Procedure Yes -Procedure Performed Yes -Type of Procedure Debridement -Clinical Debridement Subcutaneous -Post Debridement Size (cm) - Length 18.2 -Post Debridement Size (cm) - Width 1.2 -Post Debridement Size (cm) - Depth 0.1 -Total Square Cm 21.84 -Wound/Ulcer Outcome Not Healed -Ulcer Cleansing Rinsed/ Irrigated with Saline -Foul Odor after Cleansing No -Bioengineered Tissue No -Bleeding Controlled with NA -Treatment Response Procedure Tolerated Well Pain Scale: 0-10 Numeric Is Patient Pain Free? Yes Laterality: Left - Lateral calf Type of Debridement: Excisional debridement Anesthesia Used: 4% Lidocaine Solution Depth: Down to and including healthy tissue, in the subcutaneous layer Percentage of wound debrided: 100 Instrument Used: 5mm curette Severity: Fat Layer Exposed Amount of bleeding with debridement: Mild Bleeding Controlled with: Compression and gauze Patient tolerated procedure well Assessment/Plan Active Problems Open wound (Chronic) Open wound of left lower leg (Chronic) Traumatic open wound of left lower leg (Chronic) Leg swelling (Chronic) Traumatic wound (Chronic) Open wound of left lower extremity (Chronic) Assessment: This is a 77-year-old male with a traumatic injury to the left lateral calf. The patient appears to be responding well to current measures, which has included the use of Silver Viola topically for the last several weeks. Plan: We will continue the use of Silver Viola. This will be applied every other day. Patient has shown significant progress. Patient will return in 1 week for reassessment. Intake of a well-balanced and nutritious diet has been advised. Patient has been advised to elevate his lower extremities, to minimize swelling and edema. The patient is not a smoker. Influenza vaccine was not administered today. Patient stands 5 feet 4 inches tall. He weighs 210 pounds. His BMI is 36.0, which places him in a class II category. Weight loss has been recommended, with collaboration with his primary care physician.
[2017-12-30 10:35] VITALS: BP 125/74; PULSE 86; RESP 18; TEMP 36.3
--- NOTE | 2017-12-30 12:03 | PCM.WC.HP ---
(1) Obesity Status: Chronic Current Visit: No Code(s): E66.9 - Obesity, unspecified (2) Open wound Status: Chronic Current Visit: Yes Code(s): T14.8 - Other injury of unspecified body region (3) Open wound of left lower leg Status: Chronic Current Visit: Yes Qualifiers: Encounter type: subsequent encounter Code(s): S81.802A - Unspecified open wound, left lower leg, initial encounter (4) Traumatic open wound of left lower leg Status: Chronic Current Visit: Yes Qualifiers: Encounter type: subsequent encounter Code(s): S81.802A - Unspecified open wound, left lower leg, initial encounter (5) Leg swelling Status: Chronic Current Visit: Yes Code(s): M79.89 - Other specified soft tissue disorders (6) Traumatic wound Status: Chronic Current Visit: Yes (7) Open wound of left lower extremity Status: Chronic Current Visit: Yes Qualifiers: Encounter type: subsequent encounter Code(s): S81.802A - Unspecified open wound, left lower leg, initial encounter (8) History of pulmonary embolism Status: Chronic Current Visit: No Code(s): Z86.711 - Personal history of pulmonary embolism (9) Iron deficiency anemia Status: Chronic Current Visit: No Code(s): D50.9 - Iron deficiency anemia, unspecified (10) Pulmonary nodule Status: Chronic Current Visit: No Code(s): R91.1 - Solitary pulmonary nodule (11) HLD (hyperlipidemia) Status: Chronic Current Visit: No Code(s): E78.5 - Hyperlipidemia, unspecified (12) Diverticulosis Status: Chronic Current Visit: No Code(s): K57.90 - Diverticulosis of intestine, part unspecified, without perforation or abscess without bleeding (13) Asthma Status: Chronic Current Visit: No Code(s): J45.909 - Unspecified asthma, uncomplicated (14) Hypertension Status: Chronic Current Visit: No Qualifiers: Code(s): I10 - Essential (primary) hypertension (15) Osteoarthritis Status: Chronic Current Visit: No (16) History of prostate cancer Status: Chronic Current Visit: No Code(s): Z85.46 - Personal history of malignant neoplasm of prostate (17) Allergic rhinitis Status: Chronic Current Visit: No Code(s): J30.9 - Allergic rhinitis, unspecified (18) Rheumatoid arthritis Status: Chronic Current Visit: No Code(s): M06.9 - Rheumatoid arthritis, unspecified (19) Pleural plaque Status: Chronic Current Visit: No Code(s): J92.9 - Pleural plaque without asbestos (20) Macular degeneration Status: Chronic Current Visit: No Code(s): H35.30 - Unspecified macular degeneration (21) GERD (gastroesophageal reflux disease) Status: Chronic Current Visit: No Code(s): K21.9 - Gastro-esophageal reflux disease without esophagitis History of Present Illness Date of Service: 12/30/17 Chief Complaint: Recent traumatic injury of the left lower extremity with residual open wound History of Wound: This is a 77-year-old male who was in his normal state of health until September 06, 2017, at which time he sustained an injury to the left lateral calf, the result of a shovel which impaled into his left leg. The patient was rushed to the emergency department on that date, where he was treated by means of wound closure using sutures. Four days later, he had developed a cellulitis, and was admitted to the hospital for treatment. Patient was treated with antibiotics, and subsequently underwent wide surgical debridement of necrotic tissue by Dr. Homero Chin on September 12, 2017. Patient was discharged on September 16, 2017. He was discharged on Cipro 500 mg p.o. twice daily and Augmentin 875 mg p.o. twice daily. At the time of discharge, arrangements were made for the wound VAC to be the means of treatment, which has been changed every several days by home health nursing personnel. The patient had been on Xarelto and treatment for a pulmonary embolism which was diagnosed in January 2017. As result of his injury, the Xarelto has been discontinued. A noninvasive lower extremity arterial study performed in August 2016 revealed no evidence of arterial occlusive disease in the lower extremities. Therefore, there is no reason to believe there is since of any significant arterial occlusive disease. The patient has done well, showing progress with the use of the wound VAC. The patient developed cellulitis in his left lower extremity associated with fever. He was hospitalized at [facility] for approximately 4 days. He was treated initially with intravenous antibiotics consisting of Zosyn, and was subsequently discharged with a prescription for Augmentin, which has been completed. The wound VAC was discontinued, and alternative means have been implemented since that time. Silver Viola is currently being applied topically every other day. Past Medical History Past Medical History: Chronic Problems Obesity (Chronic) Open wound (Chronic) Open wound of left lower leg (Chronic) Traumatic open wound of left lower leg (Chronic) Leg swelling (Chronic) Traumatic wound (Chronic) Open wound of left lower extremity (Chronic) History of pulmonary embolism (Chronic) Iron deficiency anemia (Chronic) Pulmonary nodule (Chronic) HLD (hyperlipidemia) (Chronic) Diverticulosis (Chronic) Asthma (Chronic) Hypertension (Chronic) Osteoarthritis (Chronic) History of prostate cancer (Chronic) Allergic rhinitis (Chronic) Rheumatoid arthritis (Chronic) Pleural plaque (Chronic) Macular degeneration (Chronic) GERD (gastroesophageal reflux disease) (Chronic) Surgical History: - - Umbilical hernia repair, appendectomy, bilateral carpal tunnel surgery, Prostatectomy, Cataract surgery, L lens implant, L knee surgery followed by LTKR, L shoulder surgery, left total hip replacement. Allergies/Adverse Reactions: Allergies indomethacin [From Indocin] Allergy (Verified 12/06/17 11:12) Itching indomethacin sodium [From Indocin] Allergy (Verified 12/06/17 11:12) Itching oxycodone HCl [From Percocet] Allergy (Verified 12/06/17 11:12) Itching Home Medications: Ambulatory Orders Medication Instructions Recorded Albuterol Sulfate [Proventil Hfa] 2 puff IH BID 07/13/13 Azelastine HCl [Astelin] 2 spray NASAL BID 07/13/13 Fluticasone 0.05% [Flonase Nasal 2 spray NASAL BID 07/13/13 [place]] Montelukast [Singulair] 10 mg PO QHS 07/13/13 Sertraline HCl [Zoloft] 150 mg PO DAILY 07/13/13 Tiotropium [place] [Spiriva 18 MCG] 1 puff INHALATION DAILY 07/13/13 Atorvastatin Calcium [Lipitor] 10 mg PO QHS 10/26/14 Lisinopril [Zestril] 20 mg PO DAILY 10/26/14 Ferrous Sulfate 325 mg PO BID 07/14/15 Multivitamin [Daily Multiple 1 each PO DAILY 07/14/15 Vitamin] Omeprazole [Prilosec] 20 mg PO DAILY 07/14/15 Polyethylene Glycol 3350 [Miralax] 17 gm PO DAILY PRN 07/14/15 Ipratropium [Atrovent Aerosols] 0.5 mg INHALATION 4X/DAY PRN 09/03/16 Guaifenesin [Mucinex] 600 mg PO BID 01/12/17 Fluticasone/Salmeterol [Advair Hfa 2 puff INHALATION BID 06/22/17 230-21 Mcg Inhaler] Nystatin/Triamcin Cream [Mycolog] 1 applic TOPICAL BID PRN 06/22/17 Hydrocodone Bitart/Apap 5-325 1 tab PO Q4H PRN PRN #20 tab 09/16/17 [[place] 5/325] Lactobacillus Acidophilus 2 tab PO TID #30 tab 09/16/17 [Acidophilus] Amoxicillin/Potassium Clav 1 ea PO BID 7 Days #14 tab 11/10/17 [Augmentin 875-125 Tablet] Prednisone [Deltasone] 60 mg PO DAILY #15 tab 12/06/17 - Family History Sibling Diabetes, Renal Disease, - - Patient's father at the age of 76 with history of colon cancer myocardial infarction. Patient's mother at age of 86 with a history of breast cancer. Maternal Cancer Paternal Cancer Smoking Status: Never smoker Tobacco Use: Non-smoker Review of Systems Constitutional: Denies: Chills, Fever, Weight Change Eyes: Denies: Pain, Vision Change HEENT: Denies: Difficulty Hearing, Difficulty Swallowing, Sinus Congestion Cardiovascular: Denies: Chest Pain, Palpitations Respiratory: Denies: Cough, Shortness of Breath Gastrointestinal: Denies: Diarrhea, Nausea, Vomiting Genitourinary: Denies: Dysuria, Hematuria Endocrine: Denies: Heat/ Cold Intolerance, Polydipsia, Polyuria Hematologic/ Lymphatic: Denies: Easy Bruising, Easy Bleeding - Physical Exam Vital Signs Temp Pulse Resp BP 97.3 F L 86 18 125/74 H 12/30/17 10:35 12/30/17 10:35 12/30/17 10:35 12/30/17 10:35 General: Alert, Oriented x3, Cooperative, No apparent distress, Well developed, Well nourished HEENT: Atraumatic, PERRLA, EOMI, Normocephalic Oral: Moist Mucosa Neck: No JVD Lungs: Normal air movement Abdomen: Non-Distended Extremities: No clubbing, No cyanosis, No edema, No Calf Tenderness, - - There is no significant swelling or edema in the patient's lower extremities. The traumatic wound on the left lateral calf continues to decrease in size. It is diminished in size significantly since the patient's last visit. There is evidence of peripheral epithelialization. The base of the ulceration is generally pink and healthy, with a small amount of bioburden. Dimensions are documented elsewhere. There is no sign of infection or cellulitis. Skin: No rashes Wound Measurements and Assessment WC - Nurse 1 - General Ulcer Measurement Start: 12/23/17 12:07 Freq: Status: Active Protocol: Activity Type Activity Date Activity User E-Sign Co-Sign Detail Recorded Client Recorded Date Recorded By Document 12/30/17 10:35 [id number] 12/30/17 10:43 12/30/17 10:35 Wound Center Nurse 1 [Ulcer Assessment] #7 LATERAL LLE- POST OP 09/12/17 -Combined with other wound No -Current Size (cm) - Length 18.7 -Current Size (cm) - Width 1.7 -Current Size (cm) - Depth 0.1 -Total Square Cm 31.79 -Photo Taken No -Tunneling No -Undermining/Tunneling No -Circular Undermining No -Exudate Amt None Present (0 %) -Wound Margin Thickened -Granulation Amt None Present (0 %) -Granulation Quality N/A -Necrosis Amt None Present (0 %) -Necrotic Tissue Type Adherent Slough -Structure Exposed None/Limited to Skin Breakdown -Texture (Karin-wound Skin Appearance) No Abnormality Assessed -Moisture (Karin-wound Skin Appearance Assessed ) Dry/Scaly -Color (Karin-wound Skin Appearance) No Abnormality Assessed -Temperature (Karin-wound Skin No Abnormality Appearance) (Pt Warm) -Tenderness on Palpation (Karin-wound No Skin Appearance) -Ulcer Cleansing Rinsed/ Irrigated with Saline -Foul Odor after Cleansing No -Anesthetic Used 4% Lidocaine Solution [Edema Assessment] -Lower Limb Edema Present No -Left Calf (cm) 36 -Left Ankle (cm) 22.4 - Nurse 2 - General Ulcer CM Notes Start: 12/23/17 12:07 Freq: Status: Active Protocol: Activity Type Activity Date Activity User E-Sign Co-Sign Detail Recorded Client Recorded Date Recorded By Document 12/30/17 11:48 [id number] 12/30/17 11:59 JS 12/30/17 11:48 Wound Center Nurse 2 [Procedure/Treatment] #7 LATERAL LLE- POST OP 09/12/17 -Time 11:48 -Correct Patient Yes -Correct Side, Site, Position Yes -Correct Procedure Yes -Procedure Performed Yes -Type of Procedure Debridement -Clinical Debridement Subcutaneous -Post Debridement Size (cm) - Length 12.0 -Post Debridement Size (cm) - Width 0.8 -Post Debridement Size (cm) - Depth 0.1 -Total Square Cm 9.60 -Wound/Ulcer Outcome Not Healed -Ulcer Cleansing Rinsed/ Irrigated with Saline -Foul Odor after Cleansing No -Bioengineered Tissue No -Topical Lidocaine (%) 4 -Lidocaine (ml) 10 -Bleeding Controlled with NA -Treatment Response Procedure Tolerated Well [See Physician Procedure note for Specifics] Pain Scale: 0-10 Numeric [Pain] -Is Patient Pain Free? Yes Musculoskeletal: No Muscle Wasting Neurological: Cranial nerves II-XII grossly intact, Neuro grossly intact Psych/Mental Status: Normal Affect, Appropriate, Alert and oriented to time, place, person, mood and affect Debridement Note Post-Debridement Measurements/Treatment WC - Nurse 2 - General Ulcer CM Notes Start: 12/23/17 12:07 Freq: Status: Active Protocol: Activity Type Activity Date Activity User E-Sign Co-Sign Detail Recorded Client Recorded Date Recorded By Document 12/23/17 12:28 [id number] 12/23/17 12:30 Document 12/30/17 11:48 [id number] 12/30/17 11:59 12/23/17 12/30/17 12:28 11:48 Wound Center Nurse 2 #7 LATERAL LLE- POST OP 09/12/17 -Time 12:29 11:48 -Correct Patient Yes Yes -Correct Side, Site, Position Yes Yes -Correct Procedure Yes Yes -Procedure Performed Yes Yes -Type of Procedure Debridement Debridement -Clinical Debridement Subcutaneous Subcutaneous -Post Debridement Size (cm) - Length 18.2 12.0 -Post Debridement Size (cm) - Width 1.2 0.8 -Post Debridement Size (cm) - Depth 0.1 0.1 -Total Square Cm 21.84 9.60 -Wound/Ulcer Outcome Not Healed Not Healed -Ulcer Cleansing Rinsed/ Rinsed/ Irrigated with Irrigated with Saline Saline -Foul Odor after Cleansing No No -Bioengineered Tissue No No -Topical Lidocaine (%) 4 -Lidocaine (ml) 10 -Bleeding Controlled with NA NA -Treatment Response Procedure Procedure Tolerated Well Tolerated Well Pain Scale: 0-10 Numeric Is Patient Pain Free? Yes Yes Laterality: Left - Lateral calf Type of Debridement: Excisional debridement Anesthesia Used: 4% Lidocaine Solution Depth: Down to and including healthy tissue, in the subcutaneous layer Percentage of wound debrided: 100 Instrument Used: 5mm curette, Forceps, - - Scissors Severity: Fat Layer Exposed Amount of bleeding with debridement: Mild Bleeding Controlled with: Compression and gauze Patient tolerated procedure well Assessment/Plan Active Problems Open wound (Chronic) Open wound of left lower leg (Chronic) Traumatic open wound of left lower leg (Chronic) Leg swelling (Chronic) Traumatic wound (Chronic) Open wound of left lower extremity (Chronic) Assessment: This is a 77-year-old male with a traumatic injury to the left lateral calf. The patient appears to be responding well to current measures, which has included the use of Silver Viola topically for the last several weeks. Plan: We are to transition now to the use of collagen hydrogel applied topically on a daily basis. This will be covered by Adaptic and gauze. Patient has shown significant progress. Patient will return in 1 week for reassessment. Intake of a well-balanced and nutritious diet has been advised. Patient has been advised to elevate his lower extremities, to minimize swelling and edema. The patient is not a smoker. Influenza vaccine was not administered today. Patient stands 5 feet 4 inches tall. He weighs 210 pounds. His BMI is 36.0, which places him in a class II category. Weight loss has been recommended, with collaboration with his primary care physician.
[2018-01-06 11:32] VITALS: BP 134/61; PULSE 80; RESP 20; TEMP 36.6
--- NOTE | 2018-01-06 12:41 | PCM.WC.HP ---
(1) Obesity Status: Chronic Current Visit: No Code(s): E66.9 - Obesity, unspecified (2) Open wound Status: Chronic Current Visit: Yes Code(s): T14.8 - Other injury of unspecified body region (3) Open wound of left lower leg Status: Chronic Current Visit: Yes Qualifiers: Encounter type: subsequent encounter Code(s): S81.802A - Unspecified open wound, left lower leg, initial encounter (4) Traumatic open wound of left lower leg Status: Chronic Current Visit: Yes Qualifiers: Encounter type: subsequent encounter Code(s): S81.802A - Unspecified open wound, left lower leg, initial encounter (5) Leg swelling Status: Chronic Current Visit: Yes Code(s): M79.89 - Other specified soft tissue disorders (6) Traumatic wound Status: Chronic Current Visit: Yes (7) Open wound of left lower extremity Status: Chronic Current Visit: Yes Qualifiers: Encounter type: subsequent encounter Code(s): S81.802A - Unspecified open wound, left lower leg, initial encounter (8) History of pulmonary embolism Status: Chronic Current Visit: No Code(s): Z86.711 - Personal history of pulmonary embolism (9) Iron deficiency anemia Status: Chronic Current Visit: No Code(s): D50.9 - Iron deficiency anemia, unspecified (10) Pulmonary nodule Status: Chronic Current Visit: No Code(s): R91.1 - Solitary pulmonary nodule (11) HLD (hyperlipidemia) Status: Chronic Current Visit: No Code(s): E78.5 - Hyperlipidemia, unspecified (12) Diverticulosis Status: Chronic Current Visit: No Code(s): K57.90 - Diverticulosis of intestine, part unspecified, without perforation or abscess without bleeding (13) Asthma Status: Chronic Current Visit: No Code(s): J45.909 - Unspecified asthma, uncomplicated (14) Hypertension Status: Chronic Current Visit: No Qualifiers: Code(s): I10 - Essential (primary) hypertension (15) Osteoarthritis Status: Chronic Current Visit: No (16) History of prostate cancer Status: Chronic Current Visit: No Code(s): Z85.46 - Personal history of malignant neoplasm of prostate (17) Allergic rhinitis Status: Chronic Current Visit: No Code(s): J30.9 - Allergic rhinitis, unspecified (18) Rheumatoid arthritis Status: Chronic Current Visit: No Code(s): M06.9 - Rheumatoid arthritis, unspecified (19) Pleural plaque Status: Chronic Current Visit: No Code(s): J92.9 - Pleural plaque without asbestos (20) Macular degeneration Status: Chronic Current Visit: No Code(s): H35.30 - Unspecified macular degeneration (21) GERD (gastroesophageal reflux disease) Status: Chronic Current Visit: No Code(s): K21.9 - Gastro-esophageal reflux disease without esophagitis History of Present Illness Date of Service: 01/06/18 Chief Complaint: Recent traumatic injury of the left lower extremity with residual open wound History of Wound: This is a 77-year-old male who was in his normal state of health until September 06, 2017, at which time he sustained an injury to the left lateral calf, the result of a shovel which impaled into his left leg. The patient was rushed to the emergency department on that date, where he was treated by means of wound closure using sutures. Four days later, he had developed a cellulitis, and was admitted to the hospital for treatment. Patient was treated with antibiotics, and subsequently underwent wide surgical debridement of necrotic tissue by Dr. Homero Chin on September 12, 2017. Patient was discharged on September 16, 2017. He was discharged on Cipro 500 mg p.o. twice daily and Augmentin 875 mg p.o. twice daily. At the time of discharge, arrangements were made for the wound VAC to be the means of treatment, which has been changed every several days by home health nursing personnel. The patient had been on Xarelto and treatment for a pulmonary embolism which was diagnosed in January 2017. As result of his injury, the Xarelto has been discontinued. A noninvasive lower extremity arterial study performed in August 2016 revealed no evidence of arterial occlusive disease in the lower extremities. Therefore, there is no reason to believe there is since of any significant arterial occlusive disease. The patient has done well, showing progress with the use of the wound VAC. The patient developed cellulitis in his left lower extremity associated with fever. He was hospitalized at [facility] for approximately 4 days. He was treated initially with intravenous antibiotics consisting of Zosyn, and was subsequently discharged with a prescription for Augmentin, which has been completed. The wound VAC was discontinued, and alternative means have been implemented since that time. Collagen hydrogel is currently being applied topically every day. Past Medical History Past Medical History: Chronic Problems Obesity (Chronic) Open wound (Chronic) Open wound of left lower leg (Chronic) Traumatic open wound of left lower leg (Chronic) Leg swelling (Chronic) Traumatic wound (Chronic) Open wound of left lower extremity (Chronic) History of pulmonary embolism (Chronic) Iron deficiency anemia (Chronic) Pulmonary nodule (Chronic) HLD (hyperlipidemia) (Chronic) Diverticulosis (Chronic) Asthma (Chronic) Hypertension (Chronic) Osteoarthritis (Chronic) History of prostate cancer (Chronic) Allergic rhinitis (Chronic) Rheumatoid arthritis (Chronic) Pleural plaque (Chronic) Macular degeneration (Chronic) GERD (gastroesophageal reflux disease) (Chronic) Surgical History: - - Umbilical hernia repair, appendectomy, bilateral carpal tunnel surgery, Prostatectomy, Cataract surgery, L lens implant, L knee surgery followed by LTKR, L shoulder surgery, left total hip replacement. Allergies/Adverse Reactions: Allergies indomethacin [From Indocin] Allergy (Verified 12/06/17 11:12) Itching indomethacin sodium [From Indocin] Allergy (Verified 12/06/17 11:12) Itching oxycodone HCl [From Percocet] Allergy (Verified 12/06/17 11:12) Itching Home Medications: Ambulatory Orders Medication Instructions Recorded Albuterol Sulfate [Proventil Hfa] 2 puff IH BID 07/13/13 Azelastine HCl [Astelin] 2 spray NASAL BID 07/13/13 Fluticasone 0.05% [Flonase Nasal 2 spray NASAL BID 07/13/13 [place]] Montelukast [Singulair] 10 mg PO QHS 07/13/13 Sertraline HCl [Zoloft] 150 mg PO DAILY 07/13/13 Tiotropium Mears [Spiriva 18 MCG] 1 puff INHALATION DAILY 07/13/13 Atorvastatin Calcium [Lipitor] 10 mg PO QHS 10/26/14 Lisinopril [Zestril] 20 mg PO DAILY 10/26/14 Ferrous Sulfate 325 mg PO BID 07/14/15 Multivitamin [Daily Multiple 1 each PO DAILY 07/14/15 Vitamin] Omeprazole [Prilosec] 20 mg PO DAILY 07/14/15 Polyethylene Glycol 3350 [Miralax] 17 gm PO DAILY PRN 07/14/15 Ipratropium [Atrovent Aerosols] 0.5 mg INHALATION 4X/DAY PRN 09/03/16 Guaifenesin [Mucinex] 600 mg PO BID 01/12/17 Fluticasone/Salmeterol [Advair Hfa 2 puff INHALATION BID 06/22/17 230-21 Mcg Inhaler] Nystatin/Triamcin Cream [Mycolog] 1 applic TOPICAL BID PRN 06/22/17 Hydrocodone Bitart/Apap 5-325 1 tab PO Q4H PRN PRN #20 tab 09/16/17 [[place] 5/325] Lactobacillus Acidophilus 2 tab PO TID #30 tab 09/16/17 [Acidophilus] Amoxicillin/Potassium Clav 1 ea PO BID 7 Days #14 tab 11/10/17 [Augmentin 875-125 Tablet] Prednisone [Deltasone] 60 mg PO DAILY #15 tab 12/06/17 - Family History Sibling Diabetes, Renal Disease, - - Patient's father at the age of 76 with history of colon cancer myocardial infarction. Patient's mother at age of 86 with a history of breast cancer. Maternal Cancer Paternal Cancer Smoking Status: Never smoker Tobacco Use: Non-smoker Review of Systems Constitutional: Denies: Chills, Fever, Weight Change Eyes: Denies: Pain, Vision Change HEENT: Denies: Difficulty Hearing, Difficulty Swallowing, Sinus Congestion Cardiovascular: Denies: Chest Pain, Palpitations Respiratory: Denies: Cough, Shortness of Breath Gastrointestinal: Denies: Diarrhea, Nausea, Vomiting Genitourinary: Denies: Dysuria, Hematuria Endocrine: Denies: Heat/ Cold Intolerance, Polydipsia, Polyuria Hematologic/ Lymphatic: Denies: Easy Bruising, Easy Bleeding - Physical Exam Vital Signs Temp Pulse Resp BP 98 F 80 20 H 134/61 H 01/06/18 11:32 01/06/18 11:32 01/06/18 11:32 01/06/18 11:32 General: Alert, Oriented x3, Cooperative, No apparent distress, Well developed, Well nourished HEENT: Atraumatic, PERRLA, EOMI, Normocephalic Oral: Moist Mucosa Neck: No JVD Lungs: Normal air movement Abdomen: Non-Distended Extremities: No clubbing, No cyanosis, No edema, No Calf Tenderness, - - The wound on the left lateral calf continues to diminish in size significantly. It is much improved. There is evidence of peripheral epithelialization. The base of the wound is pink and healthy in appearance, with a small amount of bioburden. Dimensions are documented elsewhere. There is no sign of infection or cellulitis. Skin: No rashes Wound Measurements and Assessment - Nurse 1 - General Ulcer Measurement Start: 12/23/17 12:07 Freq: Status: Active Protocol: Activity Type Activity Date Activity User E-Sign Co-Sign Detail Recorded Client Recorded Date Recorded By Document 01/06/18 11:32 DL [id number] 01/06/18 11:40 DL 01/06/18 11:32 Wound Center Nurse 1 [Ulcer Assessment] #7 LATERAL LLE- POST OP 09/12/17 -Current Size (cm) - Length 14.8 -Current Size (cm) - Width 0.6 -Current Size (cm) - Depth 0.1 -Total Square Cm 8.88 -Photo Taken No -Exudate Amt Small (1-33%) -Exudate Type Serosanguineous -Wound Margin Thickened -Granulation Amt Small (1-33%) -Granulation Quality [place] -Necrosis Amt Large (67-100%) -Necrotic Tissue Type Adherent Slough -Structure Exposed N/A -Texture (Karin-wound Skin Appearance) Scarring -Moisture (Karin-wound Skin Appearance Dry/Scaly ) -Color (Karin-wound Skin Appearance) Hemosiderin Staining -Temperature (Karin-wound Skin No Abnormality Appearance) (Pt Warm) -Ulcer Cleansing Wound Cleanser -Foul Odor after Cleansing No -Anesthetic Used 4% Lidocaine Solution [Edema Assessment] -Left Calf (cm) 35 -Left Ankle (cm) 22 - Nurse 2 - General Ulcer CM Notes Start: 12/23/17 12:07 Freq: Status: Active Protocol: Activity Type Activity Date Activity User E-Sign Co-Sign Detail Recorded Client Recorded Date Recorded By Document 01/06/18 12:11 JODI [id number] 01/06/18 12:15 JODI 01/06/18 12:11 Wound Center Nurse 2 [Procedure/Treatment] #7 LATERAL LLE- POST OP 09/12/17 -Time 12:11 -Correct Patient Yes -Correct Side, Site, Position Yes -Correct Procedure Yes -Procedure Performed Yes -Type of Procedure Debridement -Clinical Debridement Subcutaneous -Post Debridement Size (cm) - Length 13.0 -Post Debridement Size (cm) - Width 0.5 -Post Debridement Size (cm) - Depth 0.1 -Total Square Cm 6.50 -Wound/Ulcer Outcome Not Healed -Ulcer Cleansing Rinsed/ Irrigated with Saline -Foul Odor after Cleansing No -Bioengineered Tissue No -Topical Lidocaine (%) 5 -Bleeding Controlled with NA -Treatment Response Procedure Tolerated Well [See Physician Procedure note for Specifics] Pain Scale: 0-10 Numeric [Pain] -Is Patient Pain Free? Yes Neurological: Cranial nerves II-XII grossly intact, Neuro grossly intact Psych/Mental Status: Normal Affect, Appropriate, Alert and oriented to time, place, person, mood and affect Debridement Note Post-Debridement Measurements/Treatment WC - Nurse 2 - General Ulcer CM Notes Start: 12/23/17 12:07 Freq: Status: Active Protocol: Activity Type Activity Date Activity User E-Sign Co-Sign Detail Recorded Client Recorded Date Recorded By Document 12/23/17 12:28 [id number] 12/23/17 12:30 JS Document 12/30/17 11:48 JS [id number] 12/30/17 11:59 JS Document 01/06/18 12:11 JS [id number] 01/06/18 12:15 JS 12/23/17 12/30/17 01/06/18 12:28 11:48 12:11 Wound Center Nurse 2 #7 LATERAL LLE- POST OP 09/12/17 -Time 12:29 11:48 12:11 -Correct Patient Yes Yes Yes -Correct Side, Site, Position Yes Yes Yes -Correct Procedure Yes Yes Yes -Procedure Performed Yes Yes Yes -Type of Procedure Debridement Debridement Debridement -Clinical Debridement Subcutaneous Subcutaneous Subcutaneous -Post Debridement Size (cm) - Length 18.2 12.0 13.0 -Post Debridement Size (cm) - Width 1.2 0.8 0.5 -Post Debridement Size (cm) - Depth 0.1 0.1 0.1 -Total Square Cm 21.84 9.60 6.50 -Wound/Ulcer Outcome Not Healed Not Healed Not Healed -Ulcer Cleansing Rinsed/ Rinsed/ Rinsed/ Irrigated with Irrigated with Irrigated with Saline Saline Saline -Foul Odor after Cleansing No No No -Bioengineered Tissue No No No -Topical Lidocaine (%) 4 5 -Lidocaine (ml) 10 -Bleeding Controlled with NA NA NA -Treatment Response Procedure Procedure Procedure Tolerated Well Tolerated Well Tolerated Well Pain Scale: 0-10 Numeric Is Patient Pain Free? Yes Yes Yes Laterality: Left - Lateral calf Type of Debridement: Excisional debridement Anesthesia Used: 4% Lidocaine Solution Depth: Down to and including healthy tissue, in the subcutaneous layer Percentage of wound debrided: 100 Instrument Used: 5mm curette Severity: Fat Layer Exposed Amount of bleeding with debridement: Mild Bleeding Controlled with: Compression and gauze Patient tolerated procedure well Assessment/Plan Active Problems Open wound (Chronic) Open wound of left lower leg (Chronic) Traumatic open wound of left lower leg (Chronic) Leg swelling (Chronic) Traumatic wound (Chronic) Open wound of left lower extremity (Chronic) Assessment: This is a 77-year-old male with a traumatic injury to the left lateral calf. The patient appears to be responding well to current measures, which has included the use of collagen hydrogel topically for the last several weeks. Plan: We are to continue collagen hydrogel applied topically on a daily basis. This will be covered by Adaptic and gauze. Patient has shown significant progress. Patient will return in 1 week for reassessment. Intake of a well-balanced and nutritious diet has been advised. Patient has been advised to elevate his lower extremities, to minimize swelling and edema. The patient is not a smoker. Influenza vaccine was not administered today. Patient stands 5 feet 4 inches tall. He weighs 210 pounds. His BMI is 36.0, which places him in a class II category. Weight loss has been recommended, with collaboration with his primary care physician.
[2018-01-13 11:42] VITALS: BP 153/68; PULSE 92; RESP 18; TEMP 36.3
--- NOTE | 2018-01-13 12:46 | PCM.WC.HP ---
(1) Obesity Status: Chronic Current Visit: No Code(s): E66.9 - Obesity, unspecified (2) Open wound Status: Chronic Current Visit: Yes Code(s): T14.8 - Other injury of unspecified body region (3) Open wound of left lower leg Status: Chronic Current Visit: Yes Qualifiers: Encounter type: subsequent encounter Code(s): S81.802A - Unspecified open wound, left lower leg, initial encounter (4) Traumatic open wound of left lower leg Status: Chronic Current Visit: Yes Qualifiers: Encounter type: subsequent encounter Code(s): S81.802A - Unspecified open wound, left lower leg, initial encounter (5) Leg swelling Status: Chronic Current Visit: Yes Code(s): M79.89 - Other specified soft tissue disorders (6) Traumatic wound Status: Chronic Current Visit: Yes (7) Open wound of left lower extremity Status: Chronic Current Visit: Yes Qualifiers: Encounter type: subsequent encounter Code(s): S81.802A - Unspecified open wound, left lower leg, initial encounter (8) History of pulmonary embolism Status: Chronic Current Visit: No Code(s): Z86.711 - Personal history of pulmonary embolism (9) Iron deficiency anemia Status: Chronic Current Visit: No Code(s): D50.9 - Iron deficiency anemia, unspecified (10) Pulmonary nodule Status: Chronic Current Visit: No Code(s): R91.1 - Solitary pulmonary nodule (11) HLD (hyperlipidemia) Status: Chronic Current Visit: No Code(s): E78.5 - Hyperlipidemia, unspecified (12) Diverticulosis Status: Chronic Current Visit: No Code(s): K57.90 - Diverticulosis of intestine, part unspecified, without perforation or abscess without bleeding (13) Asthma Status: Chronic Current Visit: No Code(s): J45.909 - Unspecified asthma, uncomplicated (14) Hypertension Status: Chronic Current Visit: No Qualifiers: Code(s): I10 - Essential (primary) hypertension (15) Osteoarthritis Status: Chronic Current Visit: No (16) History of prostate cancer Status: Chronic Current Visit: No Code(s): Z85.46 - Personal history of malignant neoplasm of prostate (17) Allergic rhinitis Status: Chronic Current Visit: No Code(s): J30.9 - Allergic rhinitis, unspecified (18) Rheumatoid arthritis Status: Chronic Current Visit: No Code(s): M06.9 - Rheumatoid arthritis, unspecified (19) Pleural plaque Status: Chronic Current Visit: No Code(s): J92.9 - Pleural plaque without asbestos (20) Macular degeneration Status: Chronic Current Visit: No Code(s): H35.30 - Unspecified macular degeneration (21) GERD (gastroesophageal reflux disease) Status: Chronic Current Visit: No Code(s): K21.9 - Gastro-esophageal reflux disease without esophagitis History of Present Illness Date of Service: 01/13/18 Chief Complaint: Recent traumatic injury of the left lower extremity with residual open wound History of Wound: This is a 77-year-old male who was in his normal state of health until September 06, 2017, at which time he sustained an injury to the left lateral calf, the result of a shovel which impaled into his left leg. The patient was rushed to the emergency department on that date, where he was treated by means of wound closure using sutures. Four days later, he had developed a cellulitis, and was admitted to the hospital for treatment. Patient was treated with antibiotics, and subsequently underwent wide surgical debridement of necrotic tissue by Dr. Homero Chin on September 12, 2017. Patient was discharged on September 16, 2017. He was discharged on Cipro 500 mg p.o. twice daily and Augmentin 875 mg p.o. twice daily. At the time of discharge, arrangements were made for the wound VAC to be the means of treatment, which has been changed every several days by home health nursing personnel. The patient had been on Xarelto and treatment for a pulmonary embolism which was diagnosed in January 2017. As result of his injury, the Xarelto has been discontinued. A noninvasive lower extremity arterial study performed in August 2016 revealed no evidence of arterial occlusive disease in the lower extremities. Therefore, there is no reason to believe there is since of any significant arterial occlusive disease. The patient has done well, showing progress with the use of the wound VAC. The patient developed cellulitis in his left lower extremity associated with fever. He was hospitalized at [facility] for approximately 4 days. He was treated initially with intravenous antibiotics consisting of Zosyn, and was subsequently discharged with a prescription for Augmentin, which has been completed. The wound VAC was discontinued, and alternative means have been implemented since that time. Collagen hydrogel is currently being applied topically every day. Past Medical History Past Medical History: Chronic Problems Obesity (Chronic) Open wound (Chronic) Open wound of left lower leg (Chronic) Traumatic open wound of left lower leg (Chronic) Leg swelling (Chronic) Traumatic wound (Chronic) Open wound of left lower extremity (Chronic) History of pulmonary embolism (Chronic) Iron deficiency anemia (Chronic) Pulmonary nodule (Chronic) HLD (hyperlipidemia) (Chronic) Diverticulosis (Chronic) Asthma (Chronic) Hypertension (Chronic) Osteoarthritis (Chronic) History of prostate cancer (Chronic) Allergic rhinitis (Chronic) Rheumatoid arthritis (Chronic) Pleural plaque (Chronic) Macular degeneration (Chronic) GERD (gastroesophageal reflux disease) (Chronic) Surgical History: - - Umbilical hernia repair, appendectomy, bilateral carpal tunnel surgery, Prostatectomy, Cataract surgery, L lens implant, L knee surgery followed by LTKR, L shoulder surgery, left total hip replacement. Allergies/Adverse Reactions: Allergies indomethacin [From Indocin] Allergy (Verified 12/06/17 11:12) Itching indomethacin sodium [From Indocin] Allergy (Verified 12/06/17 11:12) Itching oxycodone HCl [From Percocet] Allergy (Verified 12/06/17 11:12) Itching Home Medications: Ambulatory Orders Medication Instructions Recorded Albuterol Sulfate [Proventil Hfa] 2 puff IH BID 07/13/13 Azelastine HCl [Astelin] 2 spray NASAL BID 07/13/13 Fluticasone 0.05% [Flonase Nasal 2 spray NASAL BID 07/13/13 Tinnie] Montelukast [Singulair] 10 mg PO QHS 07/13/13 Sertraline HCl [Zoloft] 150 mg PO DAILY 07/13/13 Tiotropium Donner [Spiriva 18 MCG] 1 puff INHALATION DAILY 07/13/13 Atorvastatin Calcium [Lipitor] 10 mg PO QHS 10/26/14 Lisinopril [Zestril] 20 mg PO DAILY 10/26/14 Ferrous Sulfate 325 mg PO BID 07/14/15 Multivitamin [Daily Multiple 1 each PO DAILY 07/14/15 Vitamin] Omeprazole [Prilosec] 20 mg PO DAILY 07/14/15 Polyethylene Glycol 3350 [Miralax] 17 gm PO DAILY PRN 07/14/15 Ipratropium [Atrovent Aerosols] 0.5 mg INHALATION 4X/DAY PRN 09/03/16 Guaifenesin [Mucinex] 600 mg PO BID 01/12/17 Fluticasone/Salmeterol [Advair Hfa 2 puff INHALATION BID 06/22/17 230-21 Mcg Inhaler] Nystatin/Triamcin Cream [Mycolog] 1 applic TOPICAL BID PRN 06/22/17 Hydrocodone Bitart/Apap 5-325 1 tab PO Q4H PRN PRN #20 tab 09/16/17 [Blair 5/325] Lactobacillus Acidophilus 2 tab PO TID #30 tab 09/16/17 [Acidophilus] Amoxicillin/Potassium Clav 1 ea PO BID 7 Days #14 tab 11/10/17 [Augmentin 875-125 Tablet] Prednisone [Deltasone] 60 mg PO DAILY #15 tab 12/06/17 - Family History Sibling Diabetes, Renal Disease, - - Patient's father at the age of 76 with history of colon cancer myocardial infarction. Patient's mother at age of 86 with a history of breast cancer. Maternal Cancer Paternal Cancer Smoking Status: Never smoker Tobacco Use: Non-smoker Review of Systems Constitutional: Denies: Chills, Fever, Weight Change Eyes: Denies: Pain, Vision Change HEENT: Denies: Difficulty Hearing, Difficulty Swallowing, Sinus Congestion Cardiovascular: Denies: Chest Pain, Palpitations Respiratory: Denies: Cough, Shortness of Breath Gastrointestinal: Denies: Diarrhea, Nausea, Vomiting Genitourinary: Denies: Dysuria, Hematuria Endocrine: Denies: Heat/ Cold Intolerance, Polydipsia, Polyuria Hematologic/ Lymphatic: Denies: Easy Bruising, Easy Bleeding - Physical Exam Vital Signs Temp Pulse Resp BP 97.3 F L 92 18 153/68 H 01/13/18 11:42 01/13/18 11:42 01/13/18 11:42 01/13/18 11:42 General: Alert, Oriented x3, Cooperative, No apparent distress, Well developed, Well nourished HEENT: Atraumatic, PERRLA, EOMI, Normocephalic Oral: Moist Mucosa Neck: No JVD Lungs: Normal air movement Abdomen: Non-Distended Extremities: No clubbing, No cyanosis, No edema, No Calf Tenderness, - - The traumatic wound on the left lateral calf continues to diminish in size. It is significantly smaller. Dimensions are documented elsewhere. There is only a mild amount of bioburden. There is no sign of infection or cellulitis. A few superficial excoriations are noted inferior to the traumatic wound, as the patient has been scratching using his fingernails. Skin: No rashes Wound Measurements and Assessment WC - Nurse 1 - General Ulcer Measurement Start: 12/23/17 12:07 Freq: Status: Active Protocol: Activity Type Activity Date Activity User E-Sign Co-Sign Detail Recorded Client Recorded Date Recorded By Document 01/13/18 11:42 CS [id number] 01/13/18 11:45 CS 01/13/18 11:42 Wound Center Nurse 1 [Ulcer Assessment] #7 LATERAL LLE- POST OP 09/12/17 -Combined with other wound No -Current Size (cm) - Length 8 -Current Size (cm) - Width 0.8 -Current Size (cm) - Depth 0.1 -Total Square Cm 6.4 -Photo Taken No -Epithelialization Medium 34-66% -Tunneling No -Undermining/Tunneling No -Exudate Amt Medium (34-66%) -Exudate Type Serosanguineous -Wound Margin Distinct, Outline Attached -Granulation Amt Medium (34-66%) -Granulation Quality [place] Red -Slough/Fibrin Yes -Necrosis Amt None Present (0 %) -Necrotic Tissue Type Adherent Slough -Structure Exposed None/Limited to Skin Breakdown -Texture (Karin-wound Skin Appearance) No Abnormality Assessed -Moisture (Karin-wound Skin Appearance No Abnormality ) Assessed -Color (Karin-wound Skin Appearance) No Abnormality Assessed -Temperature (Karin-wound Skin No Abnormality Appearance) (Pt Warm) -Tenderness on Palpation (Karin-wound No Skin Appearance) -Ulcer Cleansing Wound Cleanser -Foul Odor after Cleansing No -Anesthetic Used 4% Lidocaine Solution [Edema Assessment] -Lower Limb Edema Present Yes -Left Calf (cm) 37.5 -Left Ankle (cm) 22.4 - Nurse 2 - General Ulcer CM Notes Start: 12/23/17 12:07 Freq: Status: Active Protocol: Activity Type Activity Date Activity User E-Sign Co-Sign Detail Recorded Client Recorded Date Recorded By Document 01/13/18 12:30 JS [id number] 01/13/18 12:43 JS 01/13/18 12:30 Wound Center Nurse 2 [Procedure/Treatment] #7 LATERAL LLE- POST OP 09/12/17 -Time 12:32 -Correct Patient Yes -Correct Side, Site, Position Yes -Correct Procedure Yes -Procedure Performed Yes -Type of Procedure Debridement -Clinical Debridement Subcutaneous -Post Debridement Size (cm) - Length 12.5 -Post Debridement Size (cm) - Width 0.5 -Post Debridement Size (cm) - Depth 0.1 -Total Square Cm 6.25 -Wound/Ulcer Outcome Not Healed -Ulcer Cleansing Rinsed/ Irrigated with Saline -Foul Odor after Cleansing No -Bioengineered Tissue No -Topical Lidocaine (%) 5 -Lidocaine (ml) 15 -Bleeding Controlled with NA -Treatment Response Procedure Tolerated Well [See Physician Procedure note for Specifics] Pain Scale: 0-10 Numeric [Pain] -Is Patient Pain Free? Yes Neurological: Cranial nerves II-XII grossly intact, Neuro grossly intact Psych/Mental Status: Normal Affect, Appropriate, Alert and oriented to time, place, person, mood and affect Debridement Note Post-Debridement Measurements/Treatment WC - Nurse 2 - General Ulcer CM Notes Start: 12/23/17 12:07 Freq: Status: Active Protocol: Activity Type Activity Date Activity User E-Sign Co-Sign Detail Recorded Client Recorded Date Recorded By Document 12/23/17 12:28 [id number] 12/23/17 12:30 Document 12/30/17 11:48 [id number] 12/30/17 11:59 Document 01/06/18 12:11 [id number] 01/06/18 12:15 Document 01/13/18 12:30 [id number] 01/13/18 12:43 12/23/17 12/30/17 01/06/18 12:28 11:48 12:11 Wound Center Nurse 2 #7 LATERAL LLE- POST OP 09/12/17 -Time 12:29 11:48 12:11 -Correct Patient Yes Yes Yes -Correct Side, Site, Position Yes Yes Yes -Correct Procedure Yes Yes Yes -Procedure Performed Yes Yes Yes -Type of Procedure Debridement Debridement Debridement -Clinical Debridement Subcutaneous Subcutaneous Subcutaneous -Post Debridement Size (cm) - Length 18.2 12.0 13.0 -Post Debridement Size (cm) - Width 1.2 0.8 0.5 -Post Debridement Size (cm) - Depth 0.1 0.1 0.1 -Total Square Cm 21.84 9.60 6.50 -Wound/Ulcer Outcome Not Healed Not Healed Not Healed -Ulcer Cleansing Rinsed/ Rinsed/ Rinsed/ Irrigated with Irrigated with Irrigated with Saline Saline Saline -Foul Odor after Cleansing No No No -Bioengineered Tissue No No No -Topical Lidocaine (%) 4 5 -Lidocaine (ml) 10 -Bleeding Controlled with NA NA NA -Treatment Response Procedure Procedure Procedure Tolerated Well Tolerated Well Tolerated Well Pain Scale: 0-10 Numeric Is Patient Pain Free? Yes Yes Yes 01/13/18 12:30 Wound Center Nurse 2 #7 LATERAL LLE- POST OP 09/12/17 -Time 12:32 -Correct Patient Yes -Correct Side, Site, Position Yes -Correct Procedure Yes -Procedure Performed Yes -Type of Procedure Debridement -Clinical Debridement Subcutaneous -Post Debridement Size (cm) - Length 12.5 -Post Debridement Size (cm) - Width 0.5 -Post Debridement Size (cm) - Depth 0.1 -Total Square Cm 6.25 -Wound/Ulcer Outcome Not Healed -Ulcer Cleansing Rinsed/ Irrigated with Saline -Foul Odor after Cleansing No -Bioengineered Tissue No -Topical Lidocaine (%) 5 -Lidocaine (ml) 15 -Bleeding Controlled with NA -Treatment Response Procedure Tolerated Well Pain Scale: 0-10 Numeric Is Patient Pain Free? Yes Laterality: Left - Lateral calf Type of Debridement: Excisional debridement Anesthesia Used: 4% Lidocaine Solution Depth: Down to and including healthy tissue, in the subcutaneous layer Percentage of wound debrided: 100 Instrument Used: 5mm curette Severity: Fat Layer Exposed Amount of bleeding with debridement: Mild Bleeding Controlled with: Compression and gauze Patient tolerated procedure well Assessment/Plan Active Problems Open wound (Chronic) Open wound of left lower leg (Chronic) Traumatic open wound of left lower leg (Chronic) Leg swelling (Chronic) Traumatic wound (Chronic) Open wound of left lower extremity (Chronic) Assessment: This is a 77-year-old male with a traumatic injury to the left lateral calf. The patient appears to be responding well to current measures, which has included the use of collagen hydrogel topically for the last several weeks. Plan: We are to continue collagen hydrogel applied topically on a daily basis. This will be covered by Adaptic and gauze. Patient has shown significant progress. Patient will return in 1 week for reassessment. Intake of a well-balanced and nutritious diet has been advised. Patient has been advised to elevate his lower extremities, to minimize swelling and edema. The patient is not a smoker. Influenza vaccine was not administered today. Patient stands 5 feet 4 inches tall. He weighs 210 pounds. His BMI is 36.0, which places him in a class II category. Weight loss has been recommended, with collaboration with his primary care physician.
== END 2018-01-16 23:59 ==
LOC: WC 11:30
PROVIDERS: Family Provider Internal Medicine; PCP Internal Medicine; Visit Provider Surgery
DX: S81.832A Puncture wound without foreign body, left lower leg, initial encounter (principal); W22.8XXA Striking against or struck by other objects, initial encounter; M79.89 Other specified soft tissue disorders; Z86.711 Personal history of pulmonary embolism; M06.9 Rheumatoid arthritis, unspecified; K21.9 Gastro-esophageal reflux disease without esophagitis; Z85.46 Personal history of malignant neoplasm of prostate; I10 Essential (primary) hypertension; M19.90 Unspecified osteoarthritis, unspecified site; J45.909 Unspecified asthma, uncomplicated; E78.5 Hyperlipidemia, unspecified; R91.1 Solitary pulmonary nodule; Z79.899 Other long term (current) drug therapy; Z79.51 Long term (current) use of inhaled steroids; D50.9 Iron deficiency anemia, unspecified
CPT/HCPCS: 11042

== ENCOUNTER 2018-02-10 11:30 | Outpatient (RCR) | payer MEDICARE, SELFPAY ==
[2018-01-17 01:02] VITALS: BP 153/68; PULSE 92; RESP 18; TEMP 36.3
[2018-01-20 12:49] VITALS: BP 134/75; PULSE 100; RESP 18; TEMP 36.1
--- NOTE | 2018-01-20 13:35 | PCM.WC.HP ---
(1) Obesity Status: Chronic Current Visit: No Code(s): E66.9 - Obesity, unspecified (2) Open wound Status: Chronic Current Visit: Yes Code(s): T14.8 - Other injury of unspecified body region (3) Open wound of left lower leg Status: Chronic Current Visit: Yes Qualifiers: Encounter type: subsequent encounter Code(s): S81.802A - Unspecified open wound, left lower leg, initial encounter (4) Traumatic open wound of left lower leg Status: Chronic Current Visit: Yes Qualifiers: Encounter type: subsequent encounter Code(s): S81.802A - Unspecified open wound, left lower leg, initial encounter (5) Leg swelling Status: Chronic Current Visit: Yes Code(s): M79.89 - Other specified soft tissue disorders (6) Traumatic wound Status: Chronic Current Visit: Yes (7) Open wound of left lower extremity Status: Chronic Current Visit: Yes Qualifiers: Encounter type: subsequent encounter Code(s): S81.802A - Unspecified open wound, left lower leg, initial encounter (8) Cellulitis of left leg Status: Resolved Current Visit: No Code(s): L03.116 - Cellulitis of left lower limb (9) History of pulmonary embolism Status: Chronic Current Visit: No Code(s): Z86.711 - Personal history of pulmonary embolism (10) 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 Status: Resolved Current Visit: No Code(s): L97.929 - Non-pressure chronic ulcer of unspecified part of left lower leg with unspecified severity; L08.9 - Local infection of the skin and subcutaneous tissue, unspecified (11) Iron deficiency anemia Status: Chronic Current Visit: No Code(s): D50.9 - Iron deficiency anemia, unspecified (12) Pulmonary nodule Status: Chronic Current Visit: No Code(s): R91.1 - Solitary pulmonary nodule (13) HLD (hyperlipidemia) Status: Chronic Current Visit: No Code(s): E78.5 - Hyperlipidemia, unspecified (14) Diverticulosis Status: Chronic Current Visit: No Code(s): K57.90 - Diverticulosis of intestine, part unspecified, without perforation or abscess without bleeding (15) Asthma Status: Chronic Current Visit: No Code(s): J45.909 - Unspecified asthma, uncomplicated (16) Hypertension Status: Chronic Current Visit: No Qualifiers: Code(s): I10 - Essential (primary) hypertension (17) Osteoarthritis Status: Chronic Current Visit: No (18) Penetrating injury right leg Status: Resolved Current Visit: No (19) History of prostate cancer Status: Chronic Current Visit: No Code(s): Z85.46 - Personal history of malignant neoplasm of prostate (20) Allergic rhinitis Status: Chronic Current Visit: No Code(s): J30.9 - Allergic rhinitis, unspecified (21) Rheumatoid arthritis Status: Chronic Current Visit: No Code(s): M06.9 - Rheumatoid arthritis, unspecified (22) Pleural plaque Status: Chronic Current Visit: No Code(s): J92.9 - Pleural plaque without asbestos (23) Macular degeneration Status: Chronic Current Visit: No Code(s): H35.30 - Unspecified macular degeneration (24) GERD (gastroesophageal reflux disease) Status: Chronic Current Visit: No Code(s): K21.9 - Gastro-esophageal reflux disease without esophagitis History of Present Illness Date of Service: 01/20/18 Chief Complaint: Recent traumatic injury of the left lower extremity with residual open wound History of Wound: This is a 77-year-old male who was in his normal state of health until September 06, 2017, at which time he sustained an injury to the left lateral calf, the result of a shovel which impaled into his left leg. The patient was rushed to the emergency department on that date, where he was treated by means of wound closure using sutures. Four days later, he had developed a cellulitis, and was admitted to the hospital for treatment. Patient was treated with antibiotics, and subsequently underwent wide surgical debridement of necrotic tissue by Dr. Homero Chin on September 12, 2017. Patient was discharged on September 16, 2017. He was discharged on Cipro 500 mg p.o. twice daily and Augmentin 875 mg p.o. twice daily. At the time of discharge, arrangements were made for the wound VAC to be the means of treatment, which has been changed every several days by home health nursing personnel. The patient had been on Xarelto and treatment for a pulmonary embolism which was diagnosed in January 2017. As result of his injury, the Xarelto has been discontinued. A noninvasive lower extremity arterial study performed in August 2016 revealed no evidence of arterial occlusive disease in the lower extremities. Therefore, there is no reason to believe there is since of any significant arterial occlusive disease. The patient has done well, showing progress with the use of the wound VAC. The patient developed cellulitis in his left lower extremity associated with fever. He was hospitalized at [facility] for approximately 4 days. He was treated initially with intravenous antibiotics consisting of Zosyn, and was subsequently discharged with a prescription for Augmentin, which has been completed. The wound VAC was discontinued, and alternative means have been implemented since that time. Collagen hydrogel is currently being applied topically every day. Past Medical History Past Medical History: Chronic Problems Obesity (Chronic) Open wound (Chronic) Open wound of left lower leg (Chronic) Traumatic open wound of left lower leg (Chronic) Leg swelling (Chronic) Traumatic wound (Chronic) Open wound of left lower extremity (Chronic) History of pulmonary embolism (Chronic) Iron deficiency anemia (Chronic) Pulmonary nodule (Chronic) HLD (hyperlipidemia) (Chronic) Diverticulosis (Chronic) Asthma (Chronic) Hypertension (Chronic) Osteoarthritis (Chronic) History of prostate cancer (Chronic) Allergic rhinitis (Chronic) Rheumatoid arthritis (Chronic) Pleural plaque (Chronic) Macular degeneration (Chronic) GERD (gastroesophageal reflux disease) (Chronic) Surgical History: - - Umbilical hernia repair, appendectomy, bilateral carpal tunnel surgery, Prostatectomy, Cataract surgery, L lens implant, L knee surgery followed by LTKR, L shoulder surgery, left total hip replacement. Allergies/Adverse Reactions: Allergies indomethacin [From Indocin] Allergy (Verified 12/06/17 11:12) Itching indomethacin sodium [From Indocin] Allergy (Verified 12/06/17 11:12) Itching oxycodone HCl [From Percocet] Allergy (Verified 12/06/17 11:12) Itching Home Medications: Ambulatory Orders Medication Instructions Recorded Albuterol Sulfate [Proventil Hfa] 2 puff IH BID 07/13/13 Azelastine HCl [Astelin] 2 spray NASAL BID 07/13/13 Fluticasone 0.05% [Flonase Nasal 2 spray NASAL BID 07/13/13 Holmes] Montelukast [Singulair] 10 mg PO QHS 07/13/13 Sertraline HCl [Zoloft] 150 mg PO DAILY 07/13/13 Tiotropium [place] [Spiriva 18 MCG] 1 puff INHALATION DAILY 07/13/13 Atorvastatin Calcium [Lipitor] 10 mg PO QHS 10/26/14 Lisinopril [Zestril] 20 mg PO DAILY 10/26/14 Ferrous Sulfate 325 mg PO BID 07/14/15 Multivitamin [Daily Multiple 1 each PO DAILY 07/14/15 Vitamin] Omeprazole [Prilosec] 20 mg PO DAILY 07/14/15 Polyethylene Glycol 3350 [Miralax] 17 gm PO DAILY PRN 07/14/15 Ipratropium [Atrovent Aerosols] 0.5 mg INHALATION 4X/DAY PRN 09/03/16 Guaifenesin [Mucinex] 600 mg PO BID 01/12/17 Fluticasone/Salmeterol [Advair Hfa 2 puff INHALATION BID 06/22/17 230-21 Mcg Inhaler] Nystatin/Triamcin Cream [Mycolog] 1 applic TOPICAL BID PRN 06/22/17 Hydrocodone Bitart/Apap 5-325 1 tab PO Q4H PRN PRN #20 tab 09/16/17 [Portal 5/325] Lactobacillus Acidophilus 2 tab PO TID #30 tab 09/16/17 [Acidophilus] Amoxicillin/Potassium Clav 1 ea PO BID 7 Days #14 tab 11/10/17 [Augmentin 875-125 Tablet] Prednisone [Deltasone] 60 mg PO DAILY #15 tab 12/06/17 - Family History Sibling Diabetes, Renal Disease, - - Patient's father at the age of 76 with history of colon cancer myocardial infarction. Patient's mother at age of 86 with a history of breast cancer. Maternal Cancer Paternal Cancer Smoking Status: Never smoker Tobacco Use: Non-smoker Review of Systems Constitutional: Denies: Chills, Fever, Weight Change Eyes: Denies: Pain, Vision Change HEENT: Denies: Difficulty Hearing, Difficulty Swallowing, Sinus Congestion Cardiovascular: Denies: Chest Pain, Palpitations Respiratory: Denies: Cough, Shortness of Breath Gastrointestinal: Denies: Diarrhea, Nausea, Vomiting Genitourinary: Denies: Dysuria, Hematuria Endocrine: Denies: Heat/ Cold Intolerance, Polydipsia, Polyuria Hematologic/ Lymphatic: Denies: Easy Bruising, Easy Bleeding - Physical Exam Vital Signs Temp Pulse Resp BP 96.9 F L 100 18 134/75 H 01/20/18 12:49 01/20/18 12:49 01/20/18 12:49 01/20/18 12:49 General: Alert, Oriented x3, Cooperative, No apparent distress, Well developed, Well nourished HEENT: Atraumatic, PERRLA, EOMI, Normocephalic Oral: Moist Mucosa Neck: No JVD Lungs: Normal air movement Abdomen: Non-Distended Extremities: No clubbing, No cyanosis, No Calf Tenderness, - - Swelling and edema in the left lower extremity appears to be reasonably well controlled. The traumatic wound is markedly smaller in size, with evidence of peripheral epithelialization. There is no sign of infection or cellulitis. Dimensions are documented elsewhere. The base of the wound is pink and healthy in appearance. Skin: No rashes Wound Measurements and Assessment WC - Nurse 1 - General Ulcer Measurement Start: 01/20/18 12:49 Freq: Status: Active Protocol: Activity Type Activity Date Activity User E-Sign Co-Sign Detail Recorded Client Recorded Date Recorded By Document 01/20/18 12:49 [id number] 01/20/18 12:51 01/20/18 12:49 Wound Center Nurse 1 [Ulcer Assessment] #7 LATERAL LLE- POST OP 09/12/17 -Combined with other wound No -Current Size (cm) - Length 2.2 -Current Size (cm) - Width 0.3 -Current Size (cm) - Depth 0.1 -Total Square Cm 0.66 -Photo Taken No -Epithelialization Large 67-100% -Tunneling No -Undermining/Tunneling No -Circular Undermining No -Classification - Thickness Full Thickness without Exposed Support Structure -Exudate Amt Small (1-33%) -Exudate Type Serosanguineous -Wound Margin Distinct, Outline Attached -Granulation Amt Large (67-100%) -Granulation Quality Morrill -Slough/Fibrin Yes -Necrosis Amt Small (1-33%) -Necrotic Tissue Type Adherent Slough -Structure Exposed None/Limited to Skin Breakdown -Texture (Karin-wound Skin Appearance) Assessed Localized Edema Scarring -Moisture (Karin-wound Skin Appearance Assessed ) Dry/Scaly -Color (Karin-wound Skin Appearance) Assessed Erythema -Temperature (Karin-wound Skin No Abnormality Appearance) (Pt Warm) -Tenderness on Palpation (Karin-wound No Skin Appearance) -Ulcer Cleansing Wound Cleanser -Foul Odor after Cleansing No -Anesthetic Used 4% Lidocaine Solution [Edema Assessment] -Lower Limb Edema Present Yes -Left Calf (cm) 36.5 -Left Ankle (cm) 24.0 - Nurse 2 - General Ulcer CM Notes Start: 01/20/18 12:49 Freq: Status: Active Protocol: Activity Type Activity Date Activity User E-Sign Co-Sign Detail Recorded Client Recorded Date Recorded By Document 01/20/18 13:24 [id number] 01/20/18 13:28 01/20/18 13:24 Wound Center Nurse 2 [Procedure/Treatment] #7 LATERAL LLE- POST OP 09/12/17 -Time 13:24 -Correct Patient Yes -Correct Side, Site, Position Yes -Correct Procedure Yes -Procedure Performed Yes -Type of Procedure Debridement -Clinical Debridement Subcutaneous -Post Debridement Size (cm) - Length 2.2 -Post Debridement Size (cm) - Width 0.4 -Post Debridement Size (cm) - Depth 0.1 -Total Square Cm 0.88 -Wound/Ulcer Outcome Not Healed -Ulcer Cleansing Rinsed/ Irrigated with Saline -Foul Odor after Cleansing No -Bioengineered Tissue No -Bleeding Controlled with NA -Treatment Response Procedure Tolerated Well [See Physician Procedure note for Specifics] Pain Scale: 0-10 Numeric [Pain] -Is Patient Pain Free? Yes Musculoskeletal: No Muscle Wasting Neurological: Cranial nerves II-XII grossly intact, Neuro grossly intact Psych/Mental Status: Normal Affect, Appropriate, Alert and oriented to time, place, person, mood and affect Debridement Note Post-Debridement Measurements/Treatment - Nurse 2 - General Ulcer CM Notes Start: 01/20/18 12:49 Freq: Status: Active Protocol: Activity Type Activity Date Activity User E-Sign Co-Sign Detail Recorded Client Recorded Date Recorded By Document 01/20/18 13:24 JS [id number] 01/20/18 13:28 01/20/18 13:24 Wound Center Nurse 2 #7 LATERAL LLE- POST OP 09/12/17 -Time 13:24 -Correct Patient Yes -Correct Side, Site, Position Yes -Correct Procedure Yes -Procedure Performed Yes -Type of Procedure Debridement -Clinical Debridement Subcutaneous -Post Debridement Size (cm) - Length 2.2 -Post Debridement Size (cm) - Width 0.4 -Post Debridement Size (cm) - Depth 0.1 -Total Square Cm 0.88 -Wound/Ulcer Outcome Not Healed -Ulcer Cleansing Rinsed/ Irrigated with Saline -Foul Odor after Cleansing No -Bioengineered Tissue No -Bleeding Controlled with NA -Treatment Response Procedure Tolerated Well Pain Scale: 0-10 Numeric Is Patient Pain Free? Yes Laterality: Left - Lateral calf Type of Debridement: Excisional debridement Anesthesia Used: 4% Lidocaine Solution Depth: Down to and including healthy tissue, in the subcutaneous layer Percentage of wound debrided: 100 Instrument Used: 5mm curette Severity: Fat Layer Exposed Amount of bleeding with debridement: Mild Bleeding Controlled with: Compression and gauze Patient tolerated procedure well Assessment/Plan Active Problems Open wound (Chronic) Open wound of left lower leg (Chronic) Traumatic open wound of left lower leg (Chronic) Leg swelling (Chronic) Traumatic wound (Chronic) Open wound of left lower extremity (Chronic) Assessment: This is a 77-year-old male with a traumatic injury to the left lateral calf. The patient appears to be responding well to current measures, which has included the use of collagen hydrogel topically for the last several weeks. He is doing extremely well. Healing within the next several weeks appears likely to be completed. Plan: We are to continue collagen hydrogel applied topically on a daily basis. This will be covered by Adaptic and gauze. Patient has shown significant progress. Patient will return in 1 week for reassessment. Intake of a well-balanced and nutritious diet has been advised. Patient has been advised to elevate his lower extremities, to minimize swelling and edema. The patient is not a smoker. Influenza vaccine was not administered today. Patient stands 5 feet 4 inches tall. He weighs 210 pounds. His BMI is 36.0, which places him in a class II category. Weight loss has been recommended, with collaboration with his primary care physician.
[2018-01-27 10:56] VITALS: BP 125/72; PULSE 97; RESP 18; TEMP 36.8
--- NOTE | 2018-01-27 11:54 | HP.PCM_ITS ---
(1) Obesity Status: Chronic Current Visit: No Code(s): E66.9 - Obesity, unspecified (2) Open wound Status: Chronic Current Visit: Yes Code(s): T14.8 - Other injury of unspecified body region (3) Open wound of left lower leg Status: Chronic Current Visit: Yes Qualifiers: Encounter type: subsequent encounter Code(s): S81.802A - Unspecified open wound, left lower leg, initial encounter (4) Traumatic open wound of left lower leg Status: Chronic Current Visit: Yes Qualifiers: Encounter type: subsequent encounter Code(s): S81.802A - Unspecified open wound, left lower leg, initial encounter (5) Leg swelling Status: Chronic Current Visit: Yes Code(s): M79.89 - Other specified soft tissue disorders (6) Traumatic wound Status: Chronic Current Visit: Yes (7) Open wound of left lower extremity Status: Chronic Current Visit: Yes Qualifiers: Encounter type: subsequent encounter Code(s): S81.802A - Unspecified open wound, left lower leg, initial encounter (8) History of pulmonary embolism Status: Chronic Current Visit: No Code(s): Z86.711 - Personal history of pulmonary embolism (9) Iron deficiency anemia Status: Chronic Current Visit: No Code(s): D50.9 - Iron deficiency anemia, unspecified (10) Pulmonary nodule Status: Chronic Current Visit: No Code(s): R91.1 - Solitary pulmonary nodule (11) HLD (hyperlipidemia) Status: Chronic Current Visit: No Code(s): E78.5 - Hyperlipidemia, unspecified (12) Diverticulosis Status: Chronic Current Visit: No Code(s): K57.90 - Diverticulosis of intestine, part unspecified, without perforation or abscess without bleeding (13) Asthma Status: Chronic Current Visit: No Code(s): J45.909 - Unspecified asthma, uncomplicated (14) Hypertension Status: Chronic Current Visit: No Qualifiers: Code(s): I10 - Essential (primary) hypertension (15) Osteoarthritis Status: Chronic Current Visit: No (16) History of prostate cancer Status: Chronic Current Visit: No Code(s): Z85.46 - Personal history of malignant neoplasm of prostate (17) Allergic rhinitis Status: Chronic Current Visit: No Code(s): J30.9 - Allergic rhinitis, unspecified (18) Rheumatoid arthritis Status: Chronic Current Visit: No Code(s): M06.9 - Rheumatoid arthritis, unspecified (19) Pleural plaque Status: Chronic Current Visit: No Code(s): J92.9 - Pleural plaque without asbestos (20) Macular degeneration Status: Chronic Current Visit: No Code(s): H35.30 - Unspecified macular degeneration (21) GERD (gastroesophageal reflux disease) Status: Chronic Current Visit: No Code(s): K21.9 - Gastro-esophageal reflux disease without esophagitis History of Present Illness Date of Service: 01/27/18 Chief Complaint: Recent traumatic injury of the left lower extremity with residual open wound History of Wound: This is a 77-year-old male who was in his normal state of health until September 06, 2017, at which time he sustained an injury to the left lateral calf, the result of a shovel which impaled into his left leg. The patient was rushed to the emergency department on that date, where he was treated by means of wound closure using sutures. Four days later, he had developed a cellulitis, and was admitted to the hospital for treatment. Patient was treated with antibiotics, and subsequently underwent wide surgical debridement of necrotic tissue by Dr. Homero Chni on September 12, 2017. Patient was discharged on September 16, 2017. He was discharged on Cipro 500 mg p.o. twice daily and Augmentin 875 mg p.o. twice daily. At the time of discharge, arrangements were made for the wound VAC to be the means of treatment, which has been changed every several days by home health nursing personnel. The patient had been on Xarelto and treatment for a pulmonary embolism which was diagnosed in January 2017. As result of his injury, the Xarelto has been discontinued. A noninvasive lower extremity arterial study performed in August 2016 revealed no evidence of arterial occlusive disease in the lower extremities. Therefore, there is no reason to believe there is since of any significant arterial occlusive disease. The patient has done well, showing progress with the use of the wound VAC. The patient developed cellulitis in his left lower extremity associated with fever. He was hospitalized at [facility] for approximately 4 days. He was treated initially with intravenous antibiotics consisting of Zosyn, and was subsequently discharged with a prescription for Augmentin, which has been completed. The wound VAC was discontinued, and alternative means have been implemented since that time. Collagen hydrogel is currently being applied topically every day. Past Medical History Past Medical History: Chronic Problems Obesity (Chronic) Open wound (Chronic) Open wound of left lower leg (Chronic) Traumatic open wound of left lower leg (Chronic) Leg swelling (Chronic) Traumatic wound (Chronic) Open wound of left lower extremity (Chronic) History of pulmonary embolism (Chronic) Iron deficiency anemia (Chronic) Pulmonary nodule (Chronic) HLD (hyperlipidemia) (Chronic) Diverticulosis (Chronic) Asthma (Chronic) Hypertension (Chronic) Osteoarthritis (Chronic) History of prostate cancer (Chronic) Allergic rhinitis (Chronic) Rheumatoid arthritis (Chronic) Pleural plaque (Chronic) Macular degeneration (Chronic) GERD (gastroesophageal reflux disease) (Chronic) Surgical History: - - Umbilical hernia repair, appendectomy, bilateral carpal tunnel surgery, Prostatectomy, Cataract surgery, L lens implant, L knee surgery followed by LTKR, L shoulder surgery, left total hip replacement. Allergies/Adverse Reactions: Allergies indomethacin [From Indocin] Allergy (Verified 12/06/17 11:12) Itching indomethacin sodium [From Indocin] Allergy (Verified 12/06/17 11:12) Itching oxycodone HCl [From Percocet] Allergy (Verified 12/06/17 11:12) Itching Home Medications: Ambulatory Orders Medication Instructions Recorded Albuterol Sulfate [Proventil Hfa] 2 puff IH BID 07/13/13 Azelastine HCl [Astelin] 2 spray NASAL BID 07/13/13 Fluticasone 0.05% [Flonase Nasal 2 spray NASAL BID 07/13/13 [place]] Montelukast [Singulair] 10 mg PO QHS 07/13/13 Sertraline HCl [Zoloft] 150 mg PO DAILY 07/13/13 Tiotropium [place] [Spiriva 18 MCG] 1 puff INHALATION DAILY 07/13/13 Atorvastatin Calcium [Lipitor] 10 mg PO QHS 10/26/14 Lisinopril [Zestril] 20 mg PO DAILY 10/26/14 Ferrous Sulfate 325 mg PO BID 07/14/15 Multivitamin [Daily Multiple 1 each PO DAILY 07/14/15 Vitamin] Omeprazole [Prilosec] 20 mg PO DAILY 07/14/15 Polyethylene Glycol 3350 [Miralax] 17 gm PO DAILY PRN 07/14/15 Ipratropium [Atrovent Aerosols] 0.5 mg INHALATION 4X/DAY PRN 09/03/16 Guaifenesin [Mucinex] 600 mg PO BID 01/12/17 Fluticasone/Salmeterol [Advair Hfa 2 puff INHALATION BID 06/22/17 230-21 Mcg Inhaler] Nystatin/Triamcin Cream [Mycolog] 1 applic TOPICAL BID PRN 06/22/17 Hydrocodone Bitart/Apap 5-325 1 tab PO Q4H PRN PRN #20 tab 09/16/17 [[place] 5/325] Lactobacillus Acidophilus 2 tab PO TID #30 tab 09/16/17 [Acidophilus] Amoxicillin/Potassium Clav 1 ea PO BID 7 Days #14 tab 11/10/17 [Augmentin 875-125 Tablet] Prednisone [Deltasone] 60 mg PO DAILY #15 tab 12/06/17 - Family History Sibling Diabetes, Renal Disease, - - Patient's father at the age of 76 with history of colon cancer myocardial infarction. Patient's mother at age of 86 with a history of breast cancer. Maternal Cancer Paternal Cancer Smoking Status: Never smoker Tobacco Use: Non-smoker Review of Systems Constitutional: Denies: Chills, Fever, Weight Change Eyes: Denies: Pain, Vision Change HEENT: Denies: Difficulty Hearing, Difficulty Swallowing, Sinus Congestion Cardiovascular: Denies: Chest Pain, Palpitations Respiratory: Denies: Cough, Shortness of Breath Gastrointestinal: Denies: Diarrhea, Nausea, Vomiting Genitourinary: Denies: Dysuria, Hematuria Endocrine: Denies: Heat/ Cold Intolerance, Polydipsia, Polyuria Hematologic/ Lymphatic: Denies: Easy Bruising, Easy Bleeding - Physical Exam Vital Signs Temp Pulse Resp BP 98.2 F 97 18 125/72 H 01/27/18 10:56 01/27/18 10:56 01/27/18 10:56 01/27/18 10:56 General: Alert, Oriented x3, Cooperative, No apparent distress, Well developed, Well nourished HEENT: Atraumatic, PERRLA, EOMI, Normocephalic Oral: Moist Mucosa Neck: No JVD Lungs: Normal air movement Abdomen: Non-Distended Extremities: No clubbing, No cyanosis, No edema, No Calf Tenderness, - - The traumatic wound on the left lateral calf continues to diminish in size. It is now quite small, and very superficial. Dimensions are documented elsewhere. There is no sign of infection or cellulitis. There is evidence of peripheral epithelialization. Skin: No rashes Wound Measurements and Assessment - Nurse 1 - General Ulcer Measurement Start: 01/20/18 12:49 Freq: Status: Active Protocol: Activity Type Activity Date Activity User E-Sign Co-Sign Detail Recorded Client Recorded Date Recorded By Document 01/27/18 10:56 [facility] [id number] 01/27/18 11:11 [facility] 01/27/18 10:56 Wound Center Nurse 1 [Ulcer Assessment] #7 LATERAL LLE- POST OP 09/12/17 -Combined with other wound No -Current Size (cm) - Length 2.1 -Current Size (cm) - Width 0.3 -Current Size (cm) - Depth 0.1 -Total Square Cm 0.63 -Date of Last Picture (Recall this 01/27/18 field) -Photo Taken Yes -Epithelialization Medium 34-66% -Tunneling No -Undermining/Tunneling No -Circular Undermining No -Exudate Amt Small (1-33%) -Exudate Type Serosanguineous -Wound Margin Distinct, Outline Attached -Granulation Amt Medium (34-66%) -Granulation Quality Red -Slough/Fibrin Yes -Necrosis Amt Small (1-33%) -Necrotic Tissue Type Adherent Slough -Structure Exposed None/Limited to Skin Breakdown -Texture (Karin-wound Skin Appearance) Scarring -Moisture (Karin-wound Skin Appearance Dry/Scaly ) -Color (Karin-wound Skin Appearance) Assessed -Temperature (Karin-wound Skin No Abnormality Appearance) (Pt Warm) -Tenderness on Palpation (Karin-wound No Skin Appearance) -Ulcer Cleansing Wound Cleanser -Foul Odor after Cleansing No -Anesthetic Used 4% Lidocaine Solution 5% Lidocaine Gel [Edema Assessment] -Lower Limb Edema Present Yes -Left Calf (cm) 37.8 -Left Ankle (cm) 23 - Nurse 2 - General Ulcer CM Notes Start: 01/20/18 12:49 Freq: Status: Active Protocol: Activity Type Activity Date Activity User E-Sign Co-Sign Detail Recorded Client Recorded Date Recorded By Document 01/27/18 11:48 [id number] 01/27/18 11:49 01/27/18 11:48 Wound Center Nurse 2 [Procedure/Treatment] #7 LATERAL LLE- POST OP 09/12/17 -Time 11:48 -Correct Patient Yes -Correct Side, Site, Position Yes -Correct Procedure Yes -Procedure Performed Yes -Type of Procedure Debridement -Clinical Debridement Selective -Post Debridement Size (cm) - Length 2.2 -Post Debridement Size (cm) - Width 0.5 -Post Debridement Size (cm) - Depth 0.1 -Total Square Cm 1.10 -Wound/Ulcer Outcome Not Healed -Ulcer Cleansing Rinsed/ Irrigated with Saline -Foul Odor after Cleansing No -Bioengineered Tissue No -Topical Lidocaine (%) 5 -Bleeding Controlled with NA -Treatment Response Procedure Tolerated Well [See Physician Procedure note for Specifics] Pain Scale: 0-10 Numeric [Pain] -Is Patient Pain Free? Yes Musculoskeletal: No Muscle Wasting Neurological: Cranial nerves II-XII grossly intact, Neuro grossly intact Psych/Mental Status: Normal Affect, Appropriate, Alert and oriented to time, place, person, mood and affect Debridement Note Post-Debridement Measurements/Treatment WC - Nurse 2 - General Ulcer CM Notes Start: 01/20/18 12:49 Freq: Status: Active Protocol: Activity Type Activity Date Activity User E-Sign Co-Sign Detail Recorded Client Recorded Date Recorded By Document 01/20/18 13:24 [id number] 01/20/18 13:28 Document 01/27/18 11:48 [id number] 01/27/18 11:49 01/20/18 01/27/18 13:24 11:48 Wound Center Nurse 2 #7 LATERAL LLE- POST OP 09/12/17 -Time 13:24 11:48 -Correct Patient Yes Yes -Correct Side, Site, Position Yes Yes -Correct Procedure Yes Yes -Procedure Performed Yes Yes -Type of Procedure Debridement Debridement -Clinical Debridement Subcutaneous Selective -Post Debridement Size (cm) - Length 2.2 2.2 -Post Debridement Size (cm) - Width 0.4 0.5 -Post Debridement Size (cm) - Depth 0.1 0.1 -Total Square Cm 0.88 1.10 -Wound/Ulcer Outcome Not Healed Not Healed -Ulcer Cleansing Rinsed/ Rinsed/ Irrigated with Irrigated with Saline Saline -Foul Odor after Cleansing No No -Bioengineered Tissue No No -Topical Lidocaine (%) 5 -Bleeding Controlled with NA NA -Treatment Response Procedure Procedure Tolerated Well Tolerated Well Pain Scale: 0-10 Numeric Is Patient Pain Free? Yes Yes Laterality: Left - Lateral calf Type of Debridement: Selective debridement Anesthesia Used: 4% Lidocaine Solution Depth: Down to and including healthy tissue Percentage of wound debrided: 100 Instrument Used: 5mm curette Severity: Limited To Skin Breakdown Amount of bleeding with debridement: Mild Bleeding Controlled with: Compression and gauze Patient tolerated procedure well Assessment/Plan Active Problems Open wound (Chronic) Open wound of left lower leg (Chronic) Traumatic open wound of left lower leg (Chronic) Leg swelling (Chronic) Traumatic wound (Chronic) Open wound of left lower extremity (Chronic) Assessment: This is a 77-year-old male with a traumatic injury to the left lateral calf. The patient appears to be responding well to current measures, which has included the use of collagen hydrogel topically for the last several weeks. He is doing extremely well. Healing within the next several weeks appears likely. Plan: We are to continue collagen hydrogel applied topically on a daily basis. This will be covered by Adaptic and gauze. Patient has shown significant progress. Patient will return in 1 week for reassessment. Intake of a well- balanced and nutritious diet has been advised. Patient has been advised to elevate his lower extremities, to minimize swelling and edema. The patient is not a smoker. Influenza vaccine was not administered today. Patient stands 5 feet 4 inches tall. He weighs 210 pounds. His BMI is 36.0, which places him in a class II category. Weight loss has been recommended, with collaboration with his primary care physician.
[2018-02-03 10:10] VITALS: BP 135/72; PULSE 91; RESP 18; TEMP 36.5
--- NOTE | 2018-02-03 11:38 | HP.PCM_ITS ---
(1) Obesity Status: Chronic Current Visit: No Code(s): E66.9 - Obesity, unspecified (2) Open wound Status: Chronic Current Visit: Yes Code(s): T14.8 - Other injury of unspecified body region (3) Open wound of left lower leg Status: Chronic Current Visit: Yes Qualifiers: Encounter type: subsequent encounter Code(s): S81.802A - Unspecified open wound, left lower leg, initial encounter (4) Traumatic open wound of left lower leg Status: Chronic Current Visit: Yes Qualifiers: Encounter type: subsequent encounter Code(s): S81.802A - Unspecified open wound, left lower leg, initial encounter (5) Leg swelling Status: Chronic Current Visit: Yes Code(s): M79.89 - Other specified soft tissue disorders (6) Traumatic wound Status: Chronic Current Visit: Yes (7) Open wound of left lower extremity Status: Chronic Current Visit: Yes Qualifiers: Encounter type: subsequent encounter Code(s): S81.802A - Unspecified open wound, left lower leg, initial encounter (8) History of pulmonary embolism Status: Chronic Current Visit: No Code(s): Z86.711 - Personal history of pulmonary embolism (9) Iron deficiency anemia Status: Chronic Current Visit: No Code(s): D50.9 - Iron deficiency anemia, unspecified (10) Pulmonary nodule Status: Chronic Current Visit: No Code(s): R91.1 - Solitary pulmonary nodule (11) HLD (hyperlipidemia) Status: Chronic Current Visit: No Code(s): E78.5 - Hyperlipidemia, unspecified (12) Diverticulosis Status: Chronic Current Visit: No Code(s): K57.90 - Diverticulosis of intestine, part unspecified, without perforation or abscess without bleeding (13) Asthma Status: Chronic Current Visit: No Code(s): J45.909 - Unspecified asthma, uncomplicated (14) Hypertension Status: Chronic Current Visit: No Qualifiers: Code(s): I10 - Essential (primary) hypertension (15) Osteoarthritis Status: Chronic Current Visit: No (16) History of prostate cancer Status: Chronic Current Visit: No Code(s): Z85.46 - Personal history of malignant neoplasm of prostate (17) Allergic rhinitis Status: Chronic Current Visit: No Code(s): J30.9 - Allergic rhinitis, unspecified (18) Rheumatoid arthritis Status: Chronic Current Visit: No Code(s): M06.9 - Rheumatoid arthritis, unspecified (19) Pleural plaque Status: Chronic Current Visit: No Code(s): J92.9 - Pleural plaque without asbestos (20) Macular degeneration Status: Chronic Current Visit: No Code(s): H35.30 - Unspecified macular degeneration (21) GERD (gastroesophageal reflux disease) Status: Chronic Current Visit: No Code(s): K21.9 - Gastro-esophageal reflux disease without esophagitis History of Present Illness Date of Service: 02/03/18 Chief Complaint: Recent traumatic injury of the left lower extremity with residual open wound History of Wound: This is a 77-year-old male who was in his normal state of health until September 06, 2017, at which time he sustained an injury to the left lateral calf, the result of a shovel which impaled into his left leg. The patient was rushed to the emergency department on that date, where he was treated by means of wound closure using sutures. Four days later, he had developed a cellulitis, and was admitted to the hospital for treatment. Patient was treated with antibiotics, and subsequently underwent wide surgical debridement of necrotic tissue by Dr. Homero Chin on September 12, 2017. Patient was discharged on September 16, 2017. He was discharged on Cipro 500 mg p.o. twice daily and Augmentin 875 mg p.o. twice daily. At the time of discharge, arrangements were made for the wound VAC to be the means of treatment, which has been changed every several days by home health nursing personnel. The patient had been on Xarelto and treatment for a pulmonary embolism which was diagnosed in January 2017. As result of his injury, the Xarelto has been discontinued. A noninvasive lower extremity arterial study performed in August 2016 revealed no evidence of arterial occlusive disease in the lower extremities. Therefore, there is no reason to believe there is since of any significant arterial occlusive disease. The patient has done well, showing progress with the use of the wound VAC. The patient developed cellulitis in his left lower extremity associated with fever. He was hospitalized at [facility] for approximately 4 days. He was treated initially with intravenous antibiotics consisting of Zosyn, and was subsequently discharged with a prescription for Augmentin, which has been completed. The wound VAC was discontinued, and alternative means have been implemented since that time. Collagen hydrogel is currently being applied topically every day. Past Medical History Past Medical History: Chronic Problems Obesity (Chronic) Open wound (Chronic) Open wound of left lower leg (Chronic) Traumatic open wound of left lower leg (Chronic) Leg swelling (Chronic) Traumatic wound (Chronic) Open wound of left lower extremity (Chronic) History of pulmonary embolism (Chronic) Iron deficiency anemia (Chronic) Pulmonary nodule (Chronic) HLD (hyperlipidemia) (Chronic) Diverticulosis (Chronic) Asthma (Chronic) Hypertension (Chronic) Osteoarthritis (Chronic) History of prostate cancer (Chronic) Allergic rhinitis (Chronic) Rheumatoid arthritis (Chronic) Pleural plaque (Chronic) Macular degeneration (Chronic) GERD (gastroesophageal reflux disease) (Chronic) Surgical History: - - Umbilical hernia repair, appendectomy, bilateral carpal tunnel surgery, Prostatectomy, Cataract surgery, L lens implant, L knee surgery followed by LTKR, L shoulder surgery, left total hip replacement. Allergies/Adverse Reactions: Allergies indomethacin [From Indocin] Allergy (Verified 12/06/17 11:12) Itching indomethacin sodium [From Indocin] Allergy (Verified 12/06/17 11:12) Itching oxycodone HCl [From Percocet] Allergy (Verified 12/06/17 11:12) Itching Home Medications: Ambulatory Orders Medication Instructions Recorded Albuterol Sulfate [Proventil Hfa] 2 puff IH BID 07/13/13 Azelastine HCl [Astelin] 2 spray NASAL BID 07/13/13 Fluticasone 0.05% [Flonase Nasal 2 spray NASAL BID 07/13/13 [place]] Montelukast [Singulair] 10 mg PO QHS 07/13/13 Sertraline HCl [Zoloft] 150 mg PO DAILY 07/13/13 Tiotropium [place] [Spiriva 18 MCG] 1 puff INHALATION DAILY 07/13/13 Atorvastatin Calcium [Lipitor] 10 mg PO QHS 10/26/14 Lisinopril [Zestril] 20 mg PO DAILY 10/26/14 Ferrous Sulfate 325 mg PO BID 07/14/15 Multivitamin [Daily Multiple 1 each PO DAILY 07/14/15 Vitamin] Omeprazole [Prilosec] 20 mg PO DAILY 07/14/15 Polyethylene Glycol 3350 [Miralax] 17 gm PO DAILY PRN 07/14/15 Ipratropium [Atrovent Aerosols] 0.5 mg INHALATION 4X/DAY PRN 09/03/16 Guaifenesin [Mucinex] 600 mg PO BID 01/12/17 Fluticasone/Salmeterol [Advair Hfa 2 puff INHALATION BID 06/22/17 230-21 Mcg Inhaler] Nystatin/Triamcin Cream [Mycolog] 1 applic TOPICAL BID PRN 06/22/17 Hydrocodone Bitart/Apap 5-325 1 tab PO Q4H PRN PRN #20 tab 09/16/17 [[place] 5/325] Lactobacillus Acidophilus 2 tab PO TID #30 tab 09/16/17 [Acidophilus] Amoxicillin/Potassium Clav 1 ea PO BID 7 Days #14 tab 11/10/17 [Augmentin 875-125 Tablet] Prednisone [Deltasone] 60 mg PO DAILY #15 tab 12/06/17 - Family History Sibling Diabetes, Renal Disease, - - Patient's father at the age of 76 with history of colon cancer myocardial infarction. Patient's mother at age of 86 with a history of breast cancer. Maternal Cancer Paternal Cancer Smoking Status: Never smoker Tobacco Use: Non-smoker Review of Systems Constitutional: Denies: Chills, Fever, Weight Change Eyes: Denies: Pain, Vision Change HEENT: Denies: Difficulty Hearing, Difficulty Swallowing, Sinus Congestion Cardiovascular: Denies: Chest Pain, Palpitations Respiratory: Denies: Cough, Shortness of Breath Gastrointestinal: Denies: Diarrhea, Nausea, Vomiting Genitourinary: Denies: Dysuria, Hematuria Endocrine: Denies: Heat/ Cold Intolerance, Polydipsia, Polyuria Hematologic/ Lymphatic: Denies: Easy Bruising, Easy Bleeding - Physical Exam Vital Signs Temp Pulse Resp BP 97.7 F L 91 18 135/72 H 02/03/18 10:10 02/03/18 10:10 02/03/18 10:10 02/03/18 10:10 General: Alert, Oriented x3, Cooperative, No apparent distress, Well developed, Well nourished HEENT: Atraumatic, PERRLA, EOMI, Normocephalic Oral: Moist Mucosa Neck: No JVD Lungs: Normal air movement Abdomen: Non-Distended Extremities: No clubbing, No cyanosis, No edema, No Calf Tenderness, - - The wound on the lateral aspect of the left calf is relatively unchanged. However, there are now several superficial excoriations inferior to the wound, which are the result of the patient scratching with his fingernails. Dimensions are documented elsewhere. The base of the ulceration is pink and healthy in appearance, with active granulation tissue. Evidence of epithelialization is also noted. Skin: No rashes Wound Measurements and Assessment WC - Nurse 1 - General Ulcer Measurement Start: 01/20/18 12:49 Freq: Status: Active Protocol: Activity Type Activity Date Activity User E-Sign Co-Sign Detail Recorded Client Recorded Date Recorded By Document 02/03/18 10:10 [id number] 02/03/18 10:12 02/03/18 10:10 Wound Center Nurse 1 [Ulcer Assessment] #7 LATERAL LLE- POST OP 09/12/17 -Combined with other wound No -Current Size (cm) - Length 7.5 -Current Size (cm) - Width 0.5 -Current Size (cm) - Depth 0.1 -Total Square Cm 3.75 -Photo Taken No -Epithelialization Small 1-33% -Tunneling No -Undermining/Tunneling No -Circular Undermining No -Exudate Amt Small (1-33%) -Exudate Type Serosanguineous -Wound Margin Flat & Intact -Granulation Amt Large (67-100%) -Granulation Quality Red -Slough/Fibrin Yes -Necrosis Amt Medium (34-66%) -Necrotic Tissue Type Adherent Slough -Structure Exposed N/A -Texture (Karin-wound Skin Appearance) Assessed Excoriation Localized Edema Scarring -Moisture (Karin-wound Skin Appearance Assessed ) Dry/Scaly -Color (Karin-wound Skin Appearance) Assessed Hemosiderin Staining -Temperature (Karin-wound Skin No Abnormality Appearance) (Pt Warm) -Tenderness on Palpation (Karin-wound No Skin Appearance) -Ulcer Cleansing Rinsed/ Irrigated with Saline -Foul Odor after Cleansing No -Anesthetic Used 4% Lidocaine Solution [Edema Assessment] -Lower Limb Edema Present Yes -Left Calf (cm) 36.0 -Left Ankle (cm) 23.3 WC - Nurse 2 - General Ulcer CM Notes Start: 01/20/18 12:49 Freq: Status: Active Protocol: Activity Type Activity Date Activity User E-Sign Co-Sign Detail Recorded Client Recorded Date Recorded By Document 02/03/18 10:26 [id number] 02/03/18 10:33 02/03/18 10:26 Wound Center Nurse 2 [Procedure/Treatment] #8 LEFT LATERAL HICKMAN -Time 10:27 -Correct Patient Yes -Correct Side, Site, Position Yes -Correct Procedure Yes -Procedure Performed Yes -Type of Procedure Debridement -Clinical Debridement Subcutaneous -Post Debridement Size (cm) - Length 2.2 -Post Debridement Size (cm) - Width 1.8 -Post Debridement Size (cm) - Depth 0.1 -Total Square Cm 3.96 -Wound/Ulcer Outcome Not Healed -Ulcer Cleansing Not Cleansed -Foul Odor after Cleansing No -Bioengineered Tissue No -Bleeding Controlled with NA -Treatment Response Procedure Tolerated Well #7 LATERAL LLE- POST OP 09/12/17 -Time 10:26 -Correct Patient Yes -Correct Side, Site, Position Yes -Correct Procedure Yes -Procedure Performed Yes -Type of Procedure Debridement -Clinical Debridement Subcutaneous -Post Debridement Size (cm) - Length 7.5 -Post Debridement Size (cm) - Width 0.5 -Post Debridement Size (cm) - Depth 0.1 -Total Square Cm 3.75 -Wound/Ulcer Outcome Not Healed -Ulcer Cleansing Not Cleansed -Foul Odor after Cleansing No -Bioengineered Tissue No -Bleeding Controlled with NA -Treatment Response Procedure Tolerated Well [See Physician Procedure note for Specifics] Pain Scale: 0-10 Numeric [Pain] -Is Patient Pain Free? Yes Musculoskeletal: No Muscle Wasting Neurological: Cranial nerves II-XII grossly intact, Neuro grossly intact Psych/Mental Status: Normal Affect, Appropriate, Alert and oriented to time, place, person, mood and affect Debridement Note Post-Debridement Measurements/Treatment WC - Nurse 2 - General Ulcer CM Notes Start: 01/20/18 12:49 Freq: Status: Active Protocol: Activity Type Activity Date Activity User E-Sign Co-Sign Detail Recorded Client Recorded Date Recorded By Document 01/20/18 13:24 [id number] 01/20/18 13:28 JS Document 01/27/18 11:48 JS [id number] 01/27/18 11:49 JS Document 02/03/18 10:26 [id number] 02/03/18 10:33 01/20/18 01/27/18 02/03/18 13:24 11:48 10:26 Wound Center Nurse 2 #8 LEFT LATERAL HICKMAN -Time 10:27 -Correct Patient Yes -Correct Side, Site, Position Yes -Correct Procedure Yes -Procedure Performed Yes -Type of Procedure Debridement -Clinical Debridement Subcutaneous -Post Debridement Size (cm) - Length 2.2 -Post Debridement Size (cm) - Width 1.8 -Post Debridement Size (cm) - Depth 0.1 -Total Square Cm 3.96 -Wound/Ulcer Outcome Not Healed -Ulcer Cleansing Not Cleansed -Foul Odor after Cleansing No -Bioengineered Tissue No -Bleeding Controlled with NA -Treatment Response Procedure Tolerated Well #7 LATERAL LLE- POST OP 09/12/17 -Time 13:24 11:48 10:26 -Correct Patient Yes Yes Yes -Correct Side, Site, Position Yes Yes Yes -Correct Procedure Yes Yes Yes -Procedure Performed Yes Yes Yes -Type of Procedure Debridement Debridement Debridement -Clinical Debridement Subcutaneous Selective Subcutaneous -Post Debridement Size (cm) - Length 2.2 2.2 7.5 -Post Debridement Size (cm) - Width 0.4 0.5 0.5 -Post Debridement Size (cm) - Depth 0.1 0.1 0.1 -Total Square Cm 0.88 1.10 3.75 -Wound/Ulcer Outcome Not Healed Not Healed Not Healed -Ulcer Cleansing Rinsed/ Rinsed/ Not Cleansed Irrigated with Irrigated with Saline Saline -Foul Odor after Cleansing No No No -Bioengineered Tissue No No No -Topical Lidocaine (%) 5 -Bleeding Controlled with NA NA NA -Treatment Response Procedure Procedure Procedure Tolerated Well Tolerated Well Tolerated Well Pain Scale: 0-10 Numeric Is Patient Pain Free? Yes Yes Yes Laterality: Left - Lateral calf Type of Debridement: Excisional debridement Anesthesia Used: 4% Lidocaine Solution Depth: Down to and including healthy tissue, in the subcutaneous layer Percentage of wound debrided: 100 Instrument Used: 7mm curette Severity: Fat Layer Exposed Amount of bleeding with debridement: Mild Bleeding Controlled with: Compression and gauze Patient tolerated procedure well Assessment/Plan Active Problems Open wound (Chronic) Open wound of left lower leg (Chronic) Traumatic open wound of left lower leg (Chronic) Leg swelling (Chronic) Traumatic wound (Chronic) Open wound of left lower extremity (Chronic) Assessment: This is a 77-year-old male with a traumatic injury to the left lateral calf. The patient appears to be responding well to current measures, which has included the use of collagen hydrogel topically for the last several weeks. He is doing extremely well. Healing within the next several weeks appears likely. Plan: We are to continue collagen hydrogel applied topically on a daily basis. This will be covered by Adaptic and gauze. Patient has shown significant progress. Patient will return in 1 week for reassessment. Intake of a well- balanced and nutritious diet has been advised. Patient has been advised to elevate his lower extremities, to minimize swelling and edema. The patient is not a smoker. Influenza vaccine was not administered today. Patient stands 5 feet 4 inches tall. He weighs 210 pounds. His BMI is 36.0, which places him in a class II category. Weight loss has been recommended, with collaboration with his primary care physician.
[2018-02-10 11:37] VITALS: BP 137/70; PULSE 87; RESP 18; TEMP 37
--- NOTE | 2018-02-10 12:43 | PCM.WC.HP ---
(1) Obesity Status: Chronic Current Visit: No Code(s): E66.9 - Obesity, unspecified (2) Open wound Status: Chronic Current Visit: Yes Code(s): T14.8 - Other injury of unspecified body region (3) Open wound of left lower leg Status: Chronic Current Visit: Yes Qualifiers: Encounter type: subsequent encounter Code(s): S81.802A - Unspecified open wound, left lower leg, initial encounter (4) Traumatic open wound of left lower leg Status: Chronic Current Visit: Yes Qualifiers: Encounter type: subsequent encounter Code(s): S81.802A - Unspecified open wound, left lower leg, initial encounter (5) Leg swelling Status: Chronic Current Visit: Yes Code(s): M79.89 - Other specified soft tissue disorders (6) Traumatic wound Status: Chronic Current Visit: Yes (7) Open wound of left lower extremity Status: Chronic Current Visit: Yes Qualifiers: Encounter type: subsequent encounter Code(s): S81.802A - Unspecified open wound, left lower leg, initial encounter (8) History of pulmonary embolism Status: Chronic Current Visit: No Code(s): Z86.711 - Personal history of pulmonary embolism (9) Iron deficiency anemia Status: Chronic Current Visit: No Code(s): D50.9 - Iron deficiency anemia, unspecified (10) Pulmonary nodule Status: Chronic Current Visit: No Code(s): R91.1 - Solitary pulmonary nodule (11) HLD (hyperlipidemia) Status: Chronic Current Visit: No Code(s): E78.5 - Hyperlipidemia, unspecified (12) Diverticulosis Status: Chronic Current Visit: No Code(s): K57.90 - Diverticulosis of intestine, part unspecified, without perforation or abscess without bleeding (13) Asthma Status: Chronic Current Visit: No Code(s): J45.909 - Unspecified asthma, uncomplicated (14) Hypertension Status: Chronic Current Visit: No Qualifiers: Code(s): I10 - Essential (primary) hypertension (15) Osteoarthritis Status: Chronic Current Visit: No (16) History of prostate cancer Status: Chronic Current Visit: No Code(s): Z85.46 - Personal history of malignant neoplasm of prostate (17) Allergic rhinitis Status: Chronic Current Visit: No Code(s): J30.9 - Allergic rhinitis, unspecified (18) Rheumatoid arthritis Status: Chronic Current Visit: No Code(s): M06.9 - Rheumatoid arthritis, unspecified (19) Pleural plaque Status: Chronic Current Visit: No Code(s): J92.9 - Pleural plaque without asbestos (20) Macular degeneration Status: Chronic Current Visit: No Code(s): H35.30 - Unspecified macular degeneration (21) GERD (gastroesophageal reflux disease) Status: Chronic Current Visit: No Code(s): K21.9 - Gastro-esophageal reflux disease without esophagitis History of Present Illness Chief Complaint: Recent traumatic injury of the left lower extremity with residual open wound History of Wound: This is a 77-year-old male who was in his normal state of health until September 06, 2017, at which time he sustained an injury to the left lateral calf, the result of a shovel which impaled into his left leg. The patient was rushed to the emergency department on that date, where he was treated by means of wound closure using sutures. Four days later, he had developed a cellulitis, and was admitted to the hospital for treatment. Patient was treated with antibiotics, and subsequently underwent wide surgical debridement of necrotic tissue by Dr. Homero Chin on September 12, 2017. Patient was discharged on September 16, 2017. He was discharged on Cipro 500 mg p.o. twice daily and Augmentin 875 mg p.o. twice daily. At the time of discharge, arrangements were made for the wound VAC to be the means of treatment, which has been changed every several days by home health nursing personnel. The patient had been on Xarelto and treatment for a pulmonary embolism which was diagnosed in January 2017. As result of his injury, the Xarelto has been discontinued. A noninvasive lower extremity arterial study performed in August 2016 revealed no evidence of arterial occlusive disease in the lower extremities. Therefore, there is no reason to believe there is since of any significant arterial occlusive disease. The patient has done well, showing progress with the use of the wound VAC. The patient developed cellulitis in his left lower extremity associated with fever. He was hospitalized at [facility] for approximately 4 days. He was treated initially with intravenous antibiotics consisting of Zosyn, and was subsequently discharged with a prescription for Augmentin, which has been completed. The wound VAC was discontinued, and alternative means have been implemented since that time. Collagen hydrogel is currently being applied topically every day. Past Medical History Past Medical History: Chronic Problems Obesity (Chronic) Open wound (Chronic) Open wound of left lower leg (Chronic) Traumatic open wound of left lower leg (Chronic) Leg swelling (Chronic) Traumatic wound (Chronic) Open wound of left lower extremity (Chronic) History of pulmonary embolism (Chronic) Iron deficiency anemia (Chronic) Pulmonary nodule (Chronic) HLD (hyperlipidemia) (Chronic) Diverticulosis (Chronic) Asthma (Chronic) Hypertension (Chronic) Osteoarthritis (Chronic) History of prostate cancer (Chronic) Allergic rhinitis (Chronic) Rheumatoid arthritis (Chronic) Pleural plaque (Chronic) Macular degeneration (Chronic) GERD (gastroesophageal reflux disease) (Chronic) Surgical History: - - Umbilical hernia repair, appendectomy, bilateral carpal tunnel surgery, Prostatectomy, Cataract surgery, L lens implant, L knee surgery followed by LTKR, L shoulder surgery, left total hip replacement. Allergies/Adverse Reactions: Allergies indomethacin [From Indocin] Allergy (Verified 12/06/17 11:12) Itching indomethacin sodium [From Indocin] Allergy (Verified 12/06/17 11:12) Itching oxycodone HCl [From Percocet] Allergy (Verified 12/06/17 11:12) Itching Home Medications: Ambulatory Orders Medication Instructions Recorded Albuterol Sulfate [Proventil Hfa] 2 puff IH BID 07/13/13 Azelastine HCl [Astelin] 2 spray NASAL BID 07/13/13 Fluticasone 0.05% [Flonase Nasal 2 spray NASAL BID 07/13/13 [place]] Montelukast [Singulair] 10 mg PO QHS 07/13/13 Sertraline HCl [Zoloft] 150 mg PO DAILY 07/13/13 Tiotropium [place] [Spiriva 18 MCG] 1 puff INHALATION DAILY 07/13/13 Atorvastatin Calcium [Lipitor] 10 mg PO QHS 10/26/14 Lisinopril [Zestril] 20 mg PO DAILY 10/26/14 Ferrous Sulfate 325 mg PO BID 07/14/15 Multivitamin [Daily Multiple 1 each PO DAILY 07/14/15 Vitamin] Omeprazole [Prilosec] 20 mg PO DAILY 07/14/15 Polyethylene Glycol 3350 [Miralax] 17 gm PO DAILY PRN 07/14/15 Ipratropium [Atrovent Aerosols] 0.5 mg INHALATION 4X/DAY PRN 09/03/16 Guaifenesin [Mucinex] 600 mg PO BID 01/12/17 Fluticasone/Salmeterol [Advair Hfa 2 puff INHALATION BID 06/22/17 230-21 Mcg Inhaler] Nystatin/Triamcin Cream [Mycolog] 1 applic TOPICAL BID PRN 06/22/17 Hydrocodone Bitart/Apap 5-325 1 tab PO Q4H PRN PRN #20 tab 09/16/17 [[place] 5/325] Lactobacillus Acidophilus 2 tab PO TID #30 tab 09/16/17 [Acidophilus] Amoxicillin/Potassium Clav 1 ea PO BID 7 Days #14 tab 11/10/17 [Augmentin 875-125 Tablet] Prednisone [Deltasone] 60 mg PO DAILY #15 tab 12/06/17 - Family History Sibling Diabetes, Renal Disease, - - Patient's father at the age of 76 with history of colon cancer myocardial infarction. Patient's mother at age of 86 with a history of breast cancer. Maternal Cancer Paternal Cancer Smoking Status: Never smoker Tobacco Use: Non-smoker Review of Systems Constitutional: Denies: Chills, Fever, Weight Change Eyes: Denies: Pain, Vision Change HEENT: Denies: Difficulty Hearing, Difficulty Swallowing, Sinus Congestion Cardiovascular: Denies: Chest Pain, Palpitations Respiratory: Denies: Cough, Shortness of Breath Gastrointestinal: Denies: Diarrhea, Nausea, Vomiting Genitourinary: Denies: Dysuria, Hematuria Endocrine: Denies: Heat/ Cold Intolerance, Polydipsia, Polyuria Hematologic/ Lymphatic: Denies: Easy Bruising, Easy Bleeding - Physical Exam Vital Signs Temp Pulse Resp BP 98.6 F 87 18 137/70 H 02/10/18 11:37 02/10/18 11:37 02/10/18 11:37 02/10/18 11:37 General: Alert, Oriented x3, Cooperative, No apparent distress, Well developed, Well nourished HEENT: Atraumatic, PERRLA, EOMI, Normocephalic Oral: Moist Mucosa Neck: No JVD Lungs: Normal air movement Abdomen: Non-Distended Extremities: No clubbing, No cyanosis, No edema, No Calf Tenderness, - - The traumatic wound on the left lateral calf continues to diminish in size. Dimensions are documented elsewhere. There is no sign of infection or cellulitis. There is a minimum amount of bioburden. Active granulation tissue is present. There are several superficial excoriations noted adjacent to the wound, located on the left anterior tibial surface. Skin: No rashes Wound Measurements and Assessment WC - Nurse 1 - General Ulcer Measurement Start: 01/20/18 12:49 Freq: Status: Active Protocol: Activity Type Activity Date Activity User E-Sign Co-Sign Detail Recorded Client Recorded Date Recorded By Document 02/10/18 11:37 DL [id number] 02/10/18 11:47 DL 02/10/18 11:37 Wound Center Nurse 1 [Ulcer Assessment] #8 LEFT LATERAL HICKMAN -Current Size (cm) - Length 1.2 -Current Size (cm) - Width 5.2 -Current Size (cm) - Depth 0.1 -Total Square Cm 6.24 -Photo Taken No -Exudate Amt Small (1-33%) -Exudate Type Serosanguineous -Wound Margin Distinct, Outline Attached -Granulation Amt Large (67-100%) -Granulation Quality [place] -Necrosis Amt Small (1-33%) -Necrotic Tissue Type Adherent Slough -Structure Exposed N/A -Texture (Karin-wound Skin Appearance) Localized Edema Scarring -Moisture (Karin-wound Skin Appearance Dry/Scaly ) -Color (Karin-wound Skin Appearance) Hemosiderin Staining -Temperature (Karin-wound Skin No Abnormality Appearance) (Pt Warm) -Tenderness on Palpation (Karin-wound No Skin Appearance) -Ulcer Cleansing Wound Cleanser -Foul Odor after Cleansing No -Anesthetic Used 4% Lidocaine Solution #7 LATERAL LLE- POST OP 09/12/17 -Current Size (cm) - Length 0.1 -Current Size (cm) - Width 0.1 -Current Size (cm) - Depth 0.1 -Total Square Cm 0.01 -Photo Taken No -Exudate Amt None Present (0 %) -Wound Margin Flat & Intact -Granulation Amt Large (67-100%) -Granulation Quality Pale [place] -Necrosis Amt Small (1-33%) -Necrotic Tissue Type Adherent Slough -Structure Exposed N/A -Texture (Karin-wound Skin Appearance) Localized Edema Scarring -Moisture (Karin-wound Skin Appearance Dry/Scaly ) -Color (Karin-wound Skin Appearance) Hemosiderin Staining -Temperature (Karin-wound Skin No Abnormality Appearance) (Pt Warm) -Tenderness on Palpation (Karin-wound No Skin Appearance) -Ulcer Cleansing Wound Cleanser -Foul Odor after Cleansing No -Anesthetic Used 4% Lidocaine Solution [Edema Assessment] -Left Calf (cm) 36 -Left Ankle (cm) 22.5 Neurological: Cranial nerves II-XII grossly intact, Neuro grossly intact Psych/Mental Status: Normal Affect, Appropriate, Alert and oriented to time, place, person, mood and affect Debridement Note Post-Debridement Measurements/Treatment WC - Nurse 2 - General Ulcer CM Notes Start: 01/20/18 12:49 Freq: Status: Active Protocol: Activity Type Activity Date Activity User E-Sign Co-Sign Detail Recorded Client Recorded Date Recorded By Document 01/20/18 13:24 JS [id number] 01/20/18 13:28 JS Document 01/27/18 11:48 JS [id number] 01/27/18 11:49 JS Document 02/03/18 10:26 [id number] 02/03/18 10:33 01/20/18 01/27/18 02/03/18 13:24 11:48 10:26 Wound Center Nurse 2 #8 LEFT LATERAL HICKMAN -Time 10:27 -Correct Patient Yes -Correct Side, Site, Position Yes -Correct Procedure Yes -Procedure Performed Yes -Type of Procedure Debridement -Clinical Debridement Subcutaneous -Post Debridement Size (cm) - Length 2.2 -Post Debridement Size (cm) - Width 1.8 -Post Debridement Size (cm) - Depth 0.1 -Total Square Cm 3.96 -Wound/Ulcer Outcome Not Healed -Ulcer Cleansing Not Cleansed -Foul Odor after Cleansing No -Bioengineered Tissue No -Bleeding Controlled with NA -Treatment Response Procedure Tolerated Well #7 LATERAL LLE- POST OP 09/12/17 -Time 13:24 11:48 10:26 -Correct Patient Yes Yes Yes -Correct Side, Site, Position Yes Yes Yes -Correct Procedure Yes Yes Yes -Procedure Performed Yes Yes Yes -Type of Procedure Debridement Debridement Debridement -Clinical Debridement Subcutaneous Selective Subcutaneous -Post Debridement Size (cm) - Length 2.2 2.2 7.5 -Post Debridement Size (cm) - Width 0.4 0.5 0.5 -Post Debridement Size (cm) - Depth 0.1 0.1 0.1 -Total Square Cm 0.88 1.10 3.75 -Wound/Ulcer Outcome Not Healed Not Healed Not Healed -Ulcer Cleansing Rinsed/ Rinsed/ Not Cleansed Irrigated with Irrigated with Saline Saline -Foul Odor after Cleansing No No No -Bioengineered Tissue No No No -Topical Lidocaine (%) 5 -Bleeding Controlled with NA NA NA -Treatment Response Procedure Procedure Procedure Tolerated Well Tolerated Well Tolerated Well Pain Scale: 0-10 Numeric Is Patient Pain Free? Yes Yes Yes Laterality: Left - LATERAL calf Type of Debridement: Excisional debridement Anesthesia Used: 4% Lidocaine Solution Depth: Down to and including healthy tissue, in the subcutaneous layer Percentage of wound debrided: 100 Instrument Used: 7mm curette Severity: Fat Layer Exposed Amount of bleeding with debridement: Mild Bleeding Controlled with: Compression and gauze Patient tolerated procedure well Assessment/Plan Active Problems Open wound (Chronic) Open wound of left lower leg (Chronic) Traumatic open wound of left lower leg (Chronic) Leg swelling (Chronic) Traumatic wound (Chronic) Open wound of left lower extremity (Chronic) Assessment: This is a 77-year-old male with a traumatic injury to the left lateral calf. The patient appears to be responding well to current measures, which has included the use of collagen hydrogel topically for the last several weeks. He is doing extremely well. Healing within the next several weeks appears likely. Plan: We are to continue collagen hydrogel applied topically on a daily basis. This will be covered by Adaptic and gauze. Patient has shown significant progress. Patient will return in 1 week for reassessment. Intake of a well-balanced and nutritious diet has been advised. Patient has been advised to elevate his lower extremities, to minimize swelling and edema. The patient is not a smoker. Influenza vaccine was not administered today. Patient stands 5 feet 4 inches tall. He weighs 210 pounds. His BMI is 36.0, which places him in a class II category. Weight loss has been recommended, with collaboration with his primary care physician.
== END 2018-02-15 23:59 ==
LOC: WC 11:30
PROVIDERS: Family Provider Internal Medicine; PCP Internal Medicine; Visit Provider Surgery
DX: S81.832A Puncture wound without foreign body, left lower leg, initial encounter (principal); W27.1XXA Contact with garden tool, initial encounter; E66.9 Obesity, unspecified; M79.89 Other specified soft tissue disorders; D50.9 Iron deficiency anemia, unspecified; R91.1 Solitary pulmonary nodule; E78.5 Hyperlipidemia, unspecified; J45.909 Unspecified asthma, uncomplicated; I10 Essential (primary) hypertension; M19.90 Unspecified osteoarthritis, unspecified site; M06.9 Rheumatoid arthritis, unspecified; K21.9 Gastro-esophageal reflux disease without esophagitis; H35.30 Unspecified macular degeneration; Z68.36 Body mass index [BMI] 36.0-36.9, adult; Z71.3 Dietary counseling and surveillance; Z86.711 Personal history of pulmonary embolism; Z79.899 Other long term (current) drug therapy; Z79.51 Long term (current) use of inhaled steroids; Z79.52 Long term (current) use of systemic steroids; Z79.01 Long term (current) use of anticoagulants
CPT/HCPCS: 11042; 97597; 99213; G0463

== ENCOUNTER 2018-03-17 11:30 | Outpatient (RCR) | payer MEDICARE, SELFPAY ==
[2018-02-16 00:51] VITALS: BP 137/70; PULSE 87; RESP 18; TEMP 37
[2018-02-17 11:24] VITALS: BP 139/70; PULSE 94; RESP 16; TEMP 36.6
--- NOTE | 2018-02-17 11:56 | HP.PCM_ITS ---
(1) Obesity Status: Chronic Current Visit: No Code(s): E66.9 - Obesity, unspecified (2) Open wound Status: Chronic Current Visit: Yes Code(s): T14.8 - Other injury of unspecified body region (3) Open wound of left lower leg Status: Chronic Current Visit: Yes Qualifiers: Encounter type: subsequent encounter Code(s): S81.802A - Unspecified open wound, left lower leg, initial encounter (4) Traumatic open wound of left lower leg Status: Chronic Current Visit: Yes Qualifiers: Encounter type: subsequent encounter Code(s): S81.802A - Unspecified open wound, left lower leg, initial encounter (5) Leg swelling Status: Chronic Current Visit: Yes Code(s): M79.89 - Other specified soft tissue disorders (6) Traumatic wound Status: Chronic Current Visit: Yes (7) Open wound of left lower extremity Status: Chronic Current Visit: Yes Qualifiers: Encounter type: subsequent encounter Code(s): S81.802A - Unspecified open wound, left lower leg, initial encounter (8) Cellulitis of left leg Status: Resolved Current Visit: No Code(s): L03.116 - Cellulitis of left lower limb (9) History of pulmonary embolism Status: Chronic Current Visit: No Code(s): Z86.711 - Personal history of pulmonary embolism (10) 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 Status: Resolved Current Visit: No Code(s): L97.929 - Non-pressure chronic ulcer of unspecified part of left lower leg with unspecified severity; L08.9 - Local infection of the skin and subcutaneous tissue, unspecified (11) Iron deficiency anemia Status: Chronic Current Visit: No Code(s): D50.9 - Iron deficiency anemia, unspecified (12) Pulmonary nodule Status: Chronic Current Visit: No Code(s): R91.1 - Solitary pulmonary nodule (13) HLD (hyperlipidemia) Status: Chronic Current Visit: No Code(s): E78.5 - Hyperlipidemia, unspecified (14) Diverticulosis Status: Chronic Current Visit: No Code(s): K57.90 - Diverticulosis of intestine, part unspecified, without perforation or abscess without bleeding (15) Asthma Status: Chronic Current Visit: No Code(s): J45.909 - Unspecified asthma, uncomplicated (16) Hypertension Status: Chronic Current Visit: No Qualifiers: Code(s): I10 - Essential (primary) hypertension (17) Osteoarthritis Status: Chronic Current Visit: No (18) Penetrating injury right leg Status: Resolved Current Visit: No (19) History of prostate cancer Status: Chronic Current Visit: No Code(s): Z85.46 - Personal history of malignant neoplasm of prostate (20) Allergic rhinitis Status: Chronic Current Visit: No Code(s): J30.9 - Allergic rhinitis, unspecified (21) Rheumatoid arthritis Status: Chronic Current Visit: No Code(s): M06.9 - Rheumatoid arthritis, unspecified (22) Pleural plaque Status: Chronic Current Visit: No Code(s): J92.9 - Pleural plaque without asbestos (23) Macular degeneration Status: Chronic Current Visit: No Code(s): H35.30 - Unspecified macular degeneration (24) GERD (gastroesophageal reflux disease) Status: Chronic Current Visit: No Code(s): K21.9 - Gastro-esophageal reflux disease without esophagitis History of Present Illness Chief Complaint: Recent traumatic injury of the left lower extremity with residual open wound History of Wound: This is a 77-year-old male who was in his normal state of he alth until September 06, 2017, at which time he sustained an injury to the left lateral calf, the result of a shovel which impaled into his left leg. The patient was rushed to the emergency department on that date, where he was treated by means of wound closure using sutures. Four days later, he had developed a cellulitis, and was admitted to the hospital for treatment. Patient was treated with antibiotics, and subsequently underwent wide surgical debridement of necrotic tissue by Dr. Homero Chin on September 12, 2017. Patient was discharged on September 16, 2017. He was discharged on Cipro 500 mg p.o. twice daily and Augmentin 875 mg p.o. twice daily. At the time of discharge, arrangements were made for the wound VAC to be the means of treatment, which has been changed every several days by home health nursing personnel. The patient had been on Xarelto and treatment for a pulmonary embolism which was diagnosed in January 2017. As result of his injury, the Xarelto has been discontinued. A noninvasive lower extremity arterial study performed in August 2016 revealed no evidence of arterial occlusive disease in the lower extremities. Therefore, there is no reason to believe there is since of any significant arterial occlusive disease. The patient has done well, showing progress with the use of the wound VAC. The patient developed cellulitis in his left lower extremity associated with fever. He was hospitalized at [facility] for approximately 4 days. He was treated initially with intravenous antibiotics consisting of Zosyn, and was subsequently discharged with a prescription for Augmentin, which has been completed. The wound VAC was discontinued, and alternative means have been implemented since that time. Collagen hydrogel is currently being applied topically every day. Past Medical History Past Medical History: Chronic Problems Obesity (Chronic) Open wound (Chronic) Open wound of left lower leg (Chronic) Traumatic open wound of left lower leg (Chronic) Leg swelling (Chronic) Traumatic wound (Chronic) Open wound of left lower extremity (Chronic) History of pulmonary embolism (Chronic) Iron deficiency anemia (Chronic) Pulmonary nodule (Chronic) HLD (hyperlipidemia) (Chronic) Diverticulosis (Chronic) Asthma (Chronic) Hypertension (Chronic) Osteoarthritis (Chronic) History of prostate cancer (Chronic) Allergic rhinitis (Chronic) Rheumatoid arthritis (Chronic) Pleural plaque (Chronic) Macular degeneration (Chronic) GERD (gastroesophageal reflux disease) (Chronic) Surgical History: - - Umbilical hernia repair, appendectomy, bilateral carpal tunnel surgery, Prostatectomy, Cataract surgery, L lens implant, L knee surgery followed by LTKR, L shoulder surgery, left total hip replacement. Allergies/Adverse Reactions: Allergies indomethacin [From Indocin] Allergy (Verified 12/06/17 11:12) Itching indomethacin sodium [From Indocin] Allergy (Verified 12/06/17 11:12) Itching oxycodone HCl [From Percocet] Allergy (Verified 12/06/17 11:12) Itching Home Medications: Ambulatory Orders Medication Instructions Recorded Albuterol Sulfate [Proventil Hfa] 2 puff IH BID 07/13/13 Azelastine HCl [Astelin] 2 spray NASAL BID 07/13/13 Fluticasone 0.05% [Flonase Nasal 2 spray NASAL BID 07/13/13 [place]] Montelukast [Singulair] 10 mg PO QHS 07/13/13 Sertraline HCl [Zoloft] 150 mg PO DAILY 07/13/13 Tiotropium [place] [Spiriva 18 MCG] 1 puff INHALATION DAILY 07/13/13 Atorvastatin Calcium [Lipitor] 10 mg PO QHS 10/26/14 Lisinopril [Zestril] 20 mg PO DAILY 10/26/14 Ferrous Sulfate 325 mg PO BID 07/14/15 Multivitamin [Daily Multiple 1 each PO DAILY 07/14/15 Vitamin] Omeprazole [Prilosec] 20 mg PO DAILY 07/14/15 Polyethylene Glycol 3350 [Miralax] 17 gm PO DAILY PRN 07/14/15 Ipratropium [Atrovent Aerosols] 0.5 mg INHALATION 4X/DAY PRN 09/03/16 Guaifenesin [Mucinex] 600 mg PO BID 01/12/17 Fluticasone/Salmeterol [Advair Hfa 2 puff INHALATION BID 06/22/17 230-21 Mcg Inhaler] Nystatin/Triamcin Cream [Mycolog] 1 applic TOPICAL BID PRN 06/22/17 Hydrocodone Bitart/Apap 5-325 1 tab PO Q4H PRN PRN #20 tab 09/16/17 [[place] 5/325] Lactobacillus Acidophilus 2 tab PO TID #30 tab 09/16/17 [Acidophilus] Amoxicillin/Potassium Clav 1 ea PO BID 7 Days #14 tab 11/10/17 [Augmentin 875-125 Tablet] Prednisone [Deltasone] 60 mg PO DAILY #15 tab 12/06/17 - Family History Sibling Diabetes, Renal Disease, - - Patient's father at the age of 76 with history of colon cancer myocardial infarction. Patient's mother at age of 86 with a history of breast cancer. Maternal Cancer Paternal Cancer Smoking Status: Never smoker Tobacco Use: Non-smoker Review of Systems Constitutional: Denies: Chills, Fever, Weight Change Eyes: Denies: Pain, Vision Change HEENT: Denies: Difficulty Hearing, Difficulty Swallowing, Sinus Congestion Cardiovascular: Denies: Chest Pain, Palpitations Respiratory: Denies: Cough, Shortness of Breath Gastrointestinal: Denies: Diarrhea, Nausea, Vomiting Genitourinary: Denies: Dysuria, Hematuria Endocrine: Denies: Heat/ Cold Intolerance, Polydipsia, Polyuria Hematologic/ Lymphatic: Denies: Easy Bruising, Easy Bleeding - Physical Exam Vital Signs Temp Pulse Resp BP 97.8 F 94 16 139/70 H 02/17/18 11:24 02/17/18 11:24 02/17/18 11:24 02/17/18 11:24 General: Alert, Oriented x3, Cooperative, No apparent distress, Well developed, Well nourished HEENT: Atraumatic, PERRLA, EOMI, Normocephalic Oral: Moist Mucosa Neck: No JVD Lungs: Normal air movement Abdomen: Non-Distended Extremities: No clubbing, No cyanosis, No Calf Tenderness, - - The wound on the left lateral calf is now nearly completely healed. Only a very small area is yet to epithelialize. The dimensions are documented elsewhere. There is no sign of infection or cellulitis. Swelling and edema are minimal. Skin: No rashes Wound Measurements and Assessment WC - Nurse 1 - General Ulcer Measurement Start: 02/17/18 11:22 Freq: Status: Active Protocol: Activity Type Activity Date Activity User E-Sign Co-Sign Detail Recorded Client Recorded Date Recorded By Document 02/17/18 11:24 [id number] 02/17/18 11:26 02/17/18 11:24 Wound Center Nurse 1 [Ulcer Assessment] #7 LATERAL LLE- POST OP 09/12/17 -Combined with other wound No -Current Size (cm) - Length 0.1 -Current Size (cm) - Width 0.1 -Current Size (cm) - Depth 0.1 -Total Square Cm 0.01 -Photo Taken No -Epithelialization Large 67-100% -Tunneling No -Undermining/Tunneling No -Circular Undermining No -Exudate Amt None Present (0 %) -Wound Margin Flat & Intact -Granulation Amt Large (67-100%) -Granulation Quality [place] -Slough/Fibrin Yes -Necrosis Amt Small (1-33%) -Necrotic Tissue Type Adherent Slough -Structure Exposed N/A -Texture (Karin-wound Skin Appearance) Assessed Localized Edema Scarring -Moisture (Karin-wound Skin Appearance Assessed ) Dry/Scaly -Color (Karin-wound Skin Appearance) Assessed -Temperature (Karin-wound Skin No Abnormality Appearance) (Pt Warm) -Tenderness on Palpation (Karin-wound No Skin Appearance) -Ulcer Cleansing Rinsed/ Irrigated with Saline -Foul Odor after Cleansing No [Edema Assessment] -Lower Limb Edema Present Yes -Left Calf (cm) 37 -Left Ankle (cm) 23.0 WC - Nurse 2 - General Ulcer CM Notes Start: 02/17/18 11:22 Freq: Status: Active Protocol: Activity Type Activity Date Activity User E-Sign Co-Sign Detail Recorded Client Recorded Date Recorded By Document 02/17/18 11:39 DV [id number] 02/17/18 11:46 DV 02/17/18 11:39 Wound Center Nurse 2 [Procedure/Treatment] #7 LATERAL LLE- POST OP 09/12/17 -Time 11:40 -Correct Patient Yes -Correct Side, Site, Position Yes -Procedure Performed No -Type of Procedure Debridement -Clinical Debridement Selective -Post Debridement Size (cm) - Length 0.2 -Post Debridement Size (cm) - Width 0.2 -Post Debridement Size (cm) - Depth 0.1 -Total Square Cm 0.04 -Wound/Ulcer Outcome Not Healed -Ulcer Cleansing Rinsed/ Irrigated with Saline -Foul Odor after Cleansing No -Bioengineered Tissue No -Bleeding Controlled with Pressure -Treatment Response Procedure Tolerated Well [See Physician Procedure note for Specifics] Pain Scale: 0-10 Numeric [Pain] -Is Patient Pain Free? Yes Musculoskeletal: No Muscle Wasting Neurological: Cranial nerves II-XII grossly intact, Neuro grossly intact Psych/Mental Status: Normal Affect, Appropriate, Alert and oriented to time, place, person, mood and affect Debridement Note Post-Debridement Measurements/Treatment WC - Nurse 2 - General Ulcer CM Notes Start: 02/17/18 11:22 Freq: Status: Active Protocol: Activity Type Activity Date Activity User E-Sign Co-Sign Detail Recorded Client Recorded Date Recorded By Document 02/17/18 11:39 DV [id number] 02/17/18 11:46 DV 02/17/18 11:39 Wound Center Nurse 2 #7 LATERAL LLE- POST OP 09/12/17 -Time 11:40 -Correct Patient Yes -Correct Side, Site, Position Yes -Procedure Performed No -Type of Procedure Debridement -Clinical Debridement Selective -Post Debridement Size (cm) - Length 0.2 -Post Debridement Size (cm) - Width 0.2 -Post Debridement Size (cm) - Depth 0.1 -Total Square Cm 0.04 -Wound/Ulcer Outcome Not Healed -Ulcer Cleansing Rinsed/ Irrigated with Saline -Foul Odor after Cleansing No -Bioengineered Tissue No -Bleeding Controlled with Pressure -Treatment Response Procedure Tolerated Well Pain Scale: 0-10 Numeric Is Patient Pain Free? Yes Laterality: Left - Lateral calf Type of Debridement: Selective debridement Anesthesia Used: 4% Lidocaine Solution Depth: Down to and including healthy tissue, in the subcutaneous layer Percentage of wound debrided: 100 Instrument Used: 7mm curette Severity: Limited To Skin Breakdown Amount of bleeding with debridement: Mild Bleeding Controlled with: Compression and gauze Patient tolerated procedure well Assessment/Plan Active Problems Open wound (Chronic) Open wound of left lower leg (Chronic) Traumatic open wound of left lower leg (Chronic) Leg swelling (Chronic) Traumatic wound (Chronic) Open wound of left lower extremity (Chronic) Assessment: This is a 77-year-old male with a traumatic injury to the left lateral calf. The patient appears to be responding well to current measures, which has included the use of collagen hydrogel topically for the last several weeks. He is doing extremely well. Healing within the next several weeks appears likely. Plan: We are to continue collagen hydrogel applied topically on a daily basis. This will be covered by Adaptic and gauze. Patient has shown significant progress. Patient will return in 2 weeks for reassessment. It is anticipated that the patient will be completely healed at that time. Intake of a well- balanced and nutritious diet has been advised. Patient has been advised to elevate his lower extremities, to minimize swelling and edema. The patient is not a smoker. Influenza vaccine was not administered today. Patient stands 5 feet 4 inches tall. He weighs 210 pounds. His BMI is 36.0, which places him in a class II category. Weight loss has been recommended, with collaboration with his primary care physician.
[2018-02-24 11:09] VITALS: BP 124/66; PULSE 93; RESP 20; TEMP 36.5
--- NOTE | 2018-02-24 11:59 | HP.PCM_ITS ---
(1) Obesity Status: Chronic Current Visit: No Code(s): E66.9 - Obesity, unspecified (2) Open wound Status: Chronic Current Visit: Yes Code(s): T14.8 - Other injury of unspecified body region (3) Open wound of left lower leg Status: Chronic Current Visit: Yes Qualifiers: Encounter type: subsequent encounter Code(s): S81.802A - Unspecified open wound, left lower leg, initial encounter (4) Traumatic open wound of left lower leg Status: Chronic Current Visit: Yes Qualifiers: Encounter type: subsequent encounter Code(s): S81.802A - Unspecified open wound, left lower leg, initial encounter (5) Leg swelling Status: Chronic Current Visit: Yes Code(s): M79.89 - Other specified soft tissue disorders (6) Traumatic wound Status: Chronic Current Visit: Yes (7) Open wound of left lower extremity Status: Chronic Current Visit: Yes Qualifiers: Encounter type: subsequent encounter Code(s): S81.802A - Unspecified open wound, left lower leg, initial encounter (8) History of pulmonary embolism Status: Chronic Current Visit: No Code(s): Z86.711 - Personal history of pulmonary embolism (9) Iron deficiency anemia Status: Chronic Current Visit: No Code(s): D50.9 - Iron deficiency anemia, unspecified (10) Pulmonary nodule Status: Chronic Current Visit: No Code(s): R91.1 - Solitary pulmonary nodule (11) HLD (hyperlipidemia) Status: Chronic Current Visit: No Code(s): E78.5 - Hyperlipidemia, unspecified (12) Diverticulosis Status: Chronic Current Visit: No Code(s): K57.90 - Diverticulosis of intestine, part unspecified, without perforation or abscess without bleeding (13) Asthma Status: Chronic Current Visit: No Code(s): J45.909 - Unspecified asthma, uncomplicated (14) Hypertension Status: Chronic Current Visit: No Qualifiers: Code(s): I10 - Essential (primary) hypertension (15) Osteoarthritis Status: Chronic Current Visit: No (16) History of prostate cancer Status: Chronic Current Visit: No Code(s): Z85.46 - Personal history of malignant neoplasm of prostate (17) Allergic rhinitis Status: Chronic Current Visit: No Code(s): J30.9 - Allergic rhinitis, unspecified (18) Rheumatoid arthritis Status: Chronic Current Visit: No Code(s): M06.9 - Rheumatoid arthritis, unspecified (19) Pleural plaque Status: Chronic Current Visit: No Code(s): J92.9 - Pleural plaque without asbestos (20) Macular degeneration Status: Chronic Current Visit: No Code(s): H35.30 - Unspecified macular degeneration (21) GERD (gastroesophageal reflux disease) Status: Chronic Current Visit: No Code(s): K21.9 - Gastro-esophageal reflux disease without esophagitis History of Present Illness Chief Complaint: Recent traumatic injury of the left lower extremity with residual open wound History of Wound: This is a 77-year-old male who was in his normal state of health until September 06, 2017, at which time he sustained an injury to the left lateral calf, the result of a shovel which impaled into his left leg. The patient was rushed to the emergency department on that date, where he was treated by means of wound closure using sutures. Four days later, he had developed a cellulitis, and was admitted to the hospital for treatment. Patient was treated with antibiotics, and subsequently underwent wide surgical debridement of necrotic tissue by Dr. Homero Chin on September 12, 2017. Patient was discharged on September 16, 2017. He was discharged on Cipro 500 mg p.o. twice daily and Augmentin 875 mg p.o. twice daily. At the time of discharge, arrangements were made for the wound VAC to be the means of treatment, which has been changed every several days by home health nursing personnel. The patient had been on Xarelto and treatment for a pulmonary embolism which was diagnosed in January 2017. As result of his injury, the Xarelto has been discontinued. A noninvasive lower extremity arterial study performed in August 2016 revealed no evidence of arterial occlusive disease in the lower extremities. Therefore, there is no reason to believe there is since of any significant arterial occlusive disease. The patient has done well, showing progress with the use of the wound VAC. The patient developed cellulitis in his left lower extremity associated with fever. He was hospitalized at [facility] for approximately 4 days. He was treated initially with intravenous antibiotics consisting of Zosyn, and was subsequently discharged with a prescription for Augmentin, which has been completed. The wound VAC was discontinued, and alternative means have been implemented since that time. Collagen hydrogel is currently being applied topically every day. Past Medical History Past Medical History: Chronic Problems Obesity (Chronic) Open wound (Chronic) Open wound of left lower leg (Chronic) Traumatic open wound of left lower leg (Chronic) Leg swelling (Chronic) Traumatic wound (Chronic) Open wound of left lower extremity (Chronic) History of pulmonary embolism (Chronic) Iron deficiency anemia (Chronic) Pulmonary nodule (Chronic) HLD (hyperlipidemia) (Chronic) Diverticulosis (Chronic) Asthma (Chronic) Hypertension (Chronic) Osteoarthritis (Chronic) History of prostate cancer (Chronic) Allergic rhinitis (Chronic) Rheumatoid arthritis (Chronic) Pleural plaque (Chronic) Macular degeneration (Chronic) GERD (gastroesophageal reflux disease) (Chronic) Surgical History: - - Umbilical hernia repair, appendectomy, bilateral carpal tunnel surgery, Prostatectomy, Cataract surgery, L lens implant, L knee surgery followed by LTKR, L shoulder surgery, left total hip replacement. Allergies/Adverse Reactions: Allergies indomethacin [From Indocin] Allergy (Verified 12/06/17 11:12) Itching indomethacin sodium [From Indocin] Allergy (Verified 12/06/17 11:12) Itching oxycodone HCl [From Percocet] Allergy (Verified 12/06/17 11:12) Itching Home Medications: Ambulatory Orders Medication Instructions Recorded Albuterol Sulfate [Proventil Hfa] 2 puff IH BID 07/13/13 Azelastine HCl [Astelin] 2 spray NASAL BID 07/13/13 Fluticasone 0.05% [Flonase Nasal 2 spray NASAL BID 07/13/13 [place]] Montelukast [Singulair] 10 mg PO QHS 07/13/13 Sertraline HCl [Zoloft] 150 mg PO DAILY 07/13/13 Tiotropium [place] [Spiriva 18 MCG] 1 puff INHALATION DAILY 07/13/13 Atorvastatin Calcium [Lipitor] 10 mg PO QHS 10/26/14 Lisinopril [Zestril] 20 mg PO DAILY 10/26/14 Ferrous Sulfate 325 mg PO BID 07/14/15 Multivitamin [Daily Multiple 1 each PO DAILY 07/14/15 Vitamin] Omeprazole [Prilosec] 20 mg PO DAILY 07/14/15 Polyethylene Glycol 3350 [Miralax] 17 gm PO DAILY PRN 07/14/15 Ipratropium [Atrovent Aerosols] 0.5 mg INHALATION 4X/DAY PRN 09/03/16 Guaifenesin [Mucinex] 600 mg PO BID 01/12/17 Fluticasone/Salmeterol [Advair Hfa 2 puff INHALATION BID 06/22/17 230-21 Mcg Inhaler] Nystatin/Triamcin Cream [Mycolog] 1 applic TOPICAL BID PRN 06/22/17 Hydrocodone Bitart/Apap 5-325 1 tab PO Q4H PRN PRN #20 tab 09/16/17 [[place] 5/325] Lactobacillus Acidophilus 2 tab PO TID #30 tab 09/16/17 [Acidophilus] Amoxicillin/Potassium Clav 1 ea PO BID 7 Days #14 tab 11/10/17 [Augmentin 875-125 Tablet] Prednisone [Deltasone] 60 mg PO DAILY #15 tab 12/06/17 - Family History Sibling Diabetes, Renal Disease, - - Patient's father at the age of 76 with history of colon cancer myocardial infarction. Patient's mother at age of 86 with a history of breast cancer. Maternal Cancer Paternal Cancer Smoking Status: Never smoker Tobacco Use: Non-smoker Review of Systems Constitutional: Denies: Chills, Fever, Weight Change Eyes: Denies: Pain, Vision Change HEENT: Denies: Difficulty Hearing, Difficulty Swallowing, Sinus Congestion Cardiovascular: Denies: Chest Pain, Palpitations Respiratory: Denies: Cough, Shortness of Breath Gastrointestinal: Denies: Diarrhea, Nausea, Vomiting Genitourinary: Denies: Dysuria, Hematuria Endocrine: Denies: Heat/ Cold Intolerance, Polydipsia, Polyuria Hematologic/ Lymphatic: Denies: Easy Bruising, Easy Bleeding - Physical Exam Vital Signs Temp Pulse Resp BP 97.7 F L 93 20 H 124/66 H 02/24/18 11:09 02/24/18 11:09 02/24/18 11:09 02/24/18 11:09 General: Alert, Oriented x3, Cooperative, No apparent distress, Well developed, Well nourished HEENT: Atraumatic, PERRLA, EOMI, Normocephalic Oral: Moist Mucosa Neck: No JVD Lungs: Normal air movement Abdomen: Non-Distended Extremities: No clubbing, No cyanosis, No Calf Tenderness, - - Lumbar no swelling is noted in the left lower extremity. The traumatic wound on the left lateral calf now appears to be generally epithelialized. The new epithelial layer is somewhat reddened and fresh. There does not appear to be any open portion of the wound remaining. There is no sign of infection or cellulitis. Skin: No rashes Wound Measurements and Assessment - Nurse 1 - General Ulcer Measurement Start: 02/17/18 11:22 Freq: Status: Active Protocol: Activity Type Activity Date Activity User E-Sign Co-Sign Detail Recorded Client Recorded Date Recorded By Document 02/24/18 11:09 DL [id number] 02/24/18 11:15 DL 02/24/18 11:09 Wound Center Nurse 1 [Ulcer Assessment] #7 LATERAL LLE- POST OP 09/12/17 -Current Size (cm) - Length 0.1 -Current Size (cm) - Width 0.1 -Current Size (cm) - Depth 0.1 -Total Square Cm 0.01 -Photo Taken No -Exudate Amt Small (1-33%) -Exudate Type Serosanguineous -Wound Margin Distinct, Outline Attached -Granulation Amt Large (67-100%) -Granulation Quality Red -Necrosis Amt None Present (0 %) -Structure Exposed N/A -Texture (Karin-wound Skin Appearance) Localized Edema Scarring -Moisture (Karin-wound Skin Appearance No Abnormality ) -Color (Karin-wound Skin Appearance) Hemosiderin Staining -Temperature (Karin-wound Skin No Abnormality Appearance) (Pt Warm) -Ulcer Cleansing Rinsed/ Irrigated with Saline -Foul Odor after Cleansing No -Anesthetic Used 4% Lidocaine Solution [Edema Assessment] -Left Calf (cm) 35.2 -Left Ankle (cm) 22 - Nurse 2 - General Ulcer CM Notes Start: 02/17/18 11:22 Freq: Status: Active Protocol: Activity Type Activity Date Activity User E-Sign Co-Sign Detail Recorded Client Recorded Date Recorded By Document 02/24/18 11:31 JS [id number] 02/24/18 11:48 JS 02/24/18 11:31 Wound Center Nurse 2 [Procedure/Treatment] #7 LATERAL LLE- POST OP 09/12/17 -Time 11:31 -Correct Patient Yes -Correct Side, Site, Position Yes -Correct Procedure Yes -Procedure Performed No -Wound/Ulcer Outcome Not Healed -Ulcer Cleansing Rinsed/ Irrigated with Saline -Foul Odor after Cleansing No -Bioengineered Tissue No -Topical Lidocaine (%) 4 -Lidocaine (ml) 10 -Bleeding Controlled with NA -Treatment Response Procedure Tolerated Well [See Physician Procedure note for Specifics] Pain Scale: 0-10 Numeric [Pain] -Is Patient Pain Free? Yes Musculoskeletal: No Muscle Wasting Neurological: Cranial nerves II-XII grossly intact, Neuro grossly intact Psych/Mental Status: Normal Affect, Appropriate, Alert and oriented to time, place, person, mood and affect Debridement Note Post-Debridement Measurements/Treatment WC - Nurse 2 - General Ulcer CM Notes Start: 02/17/18 11:22 Freq: Status: Active Protocol: Activity Type Activity Date Activity User E-Sign Co-Sign Detail Recorded Client Recorded Date Recorded By Document 02/17/18 11:39 DV [id number] 02/17/18 11:46 DV Document 02/24/18 11:31 JS [id number] 02/24/18 11:48 JS 02/17/18 02/24/18 11:39 11:31 Wound Center Nurse 2 #7 LATERAL LLE- POST OP 09/12/17 -Time 11:40 11:31 -Correct Patient Yes Yes -Correct Side, Site, Position Yes Yes -Correct Procedure Yes -Procedure Performed No No -Type of Procedure Debridement -Clinical Debridement Selective -Post Debridement Size (cm) - Length 0.2 -Post Debridement Size (cm) - Width 0.2 -Post Debridement Size (cm) - Depth 0.1 -Total Square Cm 0.04 -Wound/Ulcer Outcome Not Healed Not Healed -Ulcer Cleansing Rinsed/ Rinsed/ Irrigated with Irrigated with Saline Saline -Foul Odor after Cleansing No No -Bioengineered Tissue No No -Topical Lidocaine (%) 4 -Lidocaine (ml) 10 -Bleeding Controlled with Pressure NA -Treatment Response Procedure Procedure Tolerated Well Tolerated Well Pain Scale: 0-10 Numeric Is Patient Pain Free? Yes Yes No debridement was completed today Assessment/Plan Active Problems Open wound (Chronic) Open wound of left lower leg (Chronic) Traumatic open wound of left lower leg (Chronic) Leg swelling (Chronic) Traumatic wound (Chronic) Open wound of left lower extremity (Chronic) Assessment: This is a 77-year-old male with a traumatic injury to the left lateral calf. The patient appears to be responding well to current measures, which has included the use of collagen hydrogel topically for the last several weeks. He is doing extremely well. His wound appears generally healed, with very fresh epithelium over most recently healed portion of the wound. Plan: The patient is to apply gauze to the freshly epithelialized wound. He is to continue with leg elevation as much as possible. He is to continue sleeping on a flat mattress at night. Compression will be applied by a dual layer of Tubigrip. Patient will return in 2 weeks for reassessment. It is anticipated that the patient will be completely healed at that time. Intake of a well- balanced and nutritious diet has been advised. Patient has been advised to allegra vate his lower extremities, to minimize swelling and edema. The patient is not a smoker. Influenza vaccine was not administered today. Patient stands 5 feet 4 inches tall. He weighs 210 pounds. His BMI is 36.0, which places him in a class II category. Weight loss has been recommended, with collaboration with his primary care physician.
[2018-03-10 10:57] VITALS: BP 134/66; PULSE 82; RESP 18; TEMP 36.3
--- NOTE | 2018-03-10 11:26 | PCM.WC.HP ---
(1) Obesity Status: Chronic Current Visit: No Code(s): E66.9 - Obesity, unspecified (2) Open wound Status: Chronic Current Visit: Yes Code(s): T14.8 - Other injury of unspecified body region (3) Open wound of left lower leg Status: Chronic Current Visit: Yes Qualifiers: Encounter type: subsequent encounter Code(s): S81.802A - Unspecified open wound, left lower leg, initial encounter (4) Traumatic open wound of left lower leg Status: Chronic Current Visit: Yes Qualifiers: Encounter type: subsequent encounter Code(s): S81.802A - Unspecified open wound, left lower leg, initial encounter (5) Leg swelling Status: Chronic Current Visit: Yes Code(s): M79.89 - Other specified soft tissue disorders (6) Traumatic wound Status: Chronic Current Visit: Yes (7) Open wound of left lower extremity Status: Chronic Current Visit: Yes Qualifiers: Encounter type: subsequent encounter Code(s): S81.802A - Unspecified open wound, left lower leg, initial encounter (8) History of pulmonary embolism Status: Chronic Current Visit: No Code(s): Z86.711 - Personal history of pulmonary embolism (9) Iron deficiency anemia Status: Chronic Current Visit: No Code(s): D50.9 - Iron deficiency anemia, unspecified (10) Pulmonary nodule Status: Chronic Current Visit: No Code(s): R91.1 - Solitary pulmonary nodule (11) HLD (hyperlipidemia) Status: Chronic Current Visit: No Code(s): E78.5 - Hyperlipidemia, unspecified (12) Diverticulosis Status: Chronic Current Visit: No Code(s): K57.90 - Diverticulosis of intestine, part unspecified, without perforation or abscess without bleeding (13) Asthma Status: Chronic Current Visit: No Code(s): J45.909 - Unspecified asthma, uncomplicated (14) Hypertension Status: Chronic Current Visit: No Qualifiers: Code(s): I10 - Essential (primary) hypertension (15) Osteoarthritis Status: Chronic Current Visit: No (16) History of prostate cancer Status: Chronic Current Visit: No Code(s): Z85.46 - Personal history of malignant neoplasm of prostate (17) Allergic rhinitis Status: Chronic Current Visit: No Code(s): J30.9 - Allergic rhinitis, unspecified (18) Rheumatoid arthritis Status: Chronic Current Visit: No Code(s): M06.9 - Rheumatoid arthritis, unspecified (19) Pleural plaque Status: Chronic Current Visit: No Code(s): J92.9 - Pleural plaque without asbestos (20) Macular degeneration Status: Chronic Current Visit: No Code(s): H35.30 - Unspecified macular degeneration (21) GERD (gastroesophageal reflux disease) Status: Chronic Current Visit: No Code(s): K21.9 - Gastro-esophageal reflux disease without esophagitis History of Present Illness Chief Complaint: Recent traumatic injury of the left lower extremity with residual open wound History of Wound: This is a 77-year-old male who was in his normal state of health until September 06, 2017, at which time he sustained an injury to the left lateral calf, the result of a shovel which impaled into his left leg. The patient was rushed to the emergency department on that date, where he was treated by means of wound closure using sutures. Four days later, he had developed a cellulitis, and was admitted to the hospital for treatment. Patient was treated with antibiotics, and subsequently underwent wide surgical debridement of necrotic tissue by Dr. Homero Chin on September 12, 2017. Patient was discharged on September 16, 2017. He was discharged on Cipro 500 mg p.o. twice daily and Augmentin 875 mg p.o. twice daily. At the time of discharge, arrangements were made for the wound VAC to be the means of treatment, which has been changed every several days by home health nursing personnel. The patient had been on Xarelto and treatment for a pulmonary embolism which was diagnosed in January 2017. As result of his injury, the Xarelto has been discontinued. A noninvasive lower extremity arterial study performed in August 2016 revealed no evidence of arterial occlusive disease in the lower extremities. Therefore, there is no reason to believe there is since of any significant arterial occlusive disease. The patient has done well, showing progress with the use of the wound VAC. The patient developed cellulitis in his left lower extremity associated with fever. He was hospitalized at [facility] for approximately 4 days. He was treated initially with intravenous antibiotics consisting of Zosyn, and was subsequently discharged with a prescription for Augmentin, which has been completed. The wound VAC was discontinued, and alternative means have been implemented since that time. Collagen hydrogel is currently being applied topically every day. Past Medical History Past Medical History: Chronic Problems Obesity (Chronic) Open wound (Chronic) Open wound of left lower leg (Chronic) Traumatic open wound of left lower leg (Chronic) Leg swelling (Chronic) Traumatic wound (Chronic) Open wound of left lower extremity (Chronic) History of pulmonary embolism (Chronic) Iron deficiency anemia (Chronic) Pulmonary nodule (Chronic) HLD (hyperlipidemia) (Chronic) Diverticulosis (Chronic) Asthma (Chronic) Hypertension (Chronic) Osteoarthritis (Chronic) History of prostate cancer (Chronic) Allergic rhinitis (Chronic) Rheumatoid arthritis (Chronic) Pleural plaque (Chronic) Macular degeneration (Chronic) GERD (gastroesophageal reflux disease) (Chronic) Surgical History: - - Umbilical hernia repair, appendectomy, bilateral carpal tunnel surgery, Prostatectomy, Cataract surgery, L lens implant, L knee surgery followed by LTKR, L shoulder surgery, left total hip replacement. Allergies/Adverse Reactions: Allergies indomethacin [From Indocin] Allergy (Verified 12/06/17 11:12) Itching indomethacin sodium [From Indocin] Allergy (Verified 12/06/17 11:12) Itching oxycodone HCl [From Percocet] Allergy (Verified 12/06/17 11:12) Itching Home Medications: Ambulatory Orders Medication Instructions Recorded Albuterol Sulfate [Proventil Hfa] 2 puff IH BID 07/13/13 Azelastine HCl [Astelin] 2 spray NASAL BID 07/13/13 Fluticasone 0.05% [Flonase Nasal 2 spray NASAL BID 07/13/13 [place]] Montelukast [Singulair] 10 mg PO QHS 07/13/13 Sertraline HCl [Zoloft] 150 mg PO DAILY 07/13/13 Tiotropium [place] [Spiriva 18 MCG] 1 puff INHALATION DAILY 07/13/13 Atorvastatin Calcium [Lipitor] 10 mg PO QHS 10/26/14 Lisinopril [Zestril] 20 mg PO DAILY 10/26/14 Ferrous Sulfate 325 mg PO BID 07/14/15 Multivitamin [Daily Multiple 1 each PO DAILY 07/14/15 Vitamin] Omeprazole [Prilosec] 20 mg PO DAILY 07/14/15 Polyethylene Glycol 3350 [Miralax] 17 gm PO DAILY PRN 07/14/15 Ipratropium [Atrovent Aerosols] 0.5 mg INHALATION 4X/DAY PRN 09/03/16 Guaifenesin [Mucinex] 600 mg PO BID 01/12/17 Fluticasone/Salmeterol [Advair Hfa 2 puff INHALATION BID 06/22/17 230-21 Mcg Inhaler] Nystatin/Triamcin Cream [Mycolog] 1 applic TOPICAL BID PRN 06/22/17 Hydrocodone Bitart/Apap 5-325 1 tab PO Q4H PRN PRN #20 tab 09/16/17 [[place] 5/325] Lactobacillus Acidophilus 2 tab PO TID #30 tab 09/16/17 [Acidophilus] Amoxicillin/Potassium Clav 1 ea PO BID 7 Days #14 tab 11/10/17 [Augmentin 875-125 Tablet] Prednisone [Deltasone] 60 mg PO DAILY #15 tab 12/06/17 - Family History Sibling Diabetes, Renal Disease, - - Patient's father at the age of 76 with history of colon cancer myocardial infarction. Patient's mother at age of 86 with a history of breast cancer. Maternal Cancer Paternal Cancer Smoking Status: Never smoker Tobacco Use: Non-smoker Review of Systems Constitutional: Denies: Chills, Fever, Weight Change Eyes: Denies: Pain, Vision Change HEENT: Denies: Difficulty Hearing, Difficulty Swallowing, Sinus Congestion Cardiovascular: Denies: Chest Pain, Palpitations Respiratory: Denies: Cough, Shortness of Breath Gastrointestinal: Denies: Diarrhea, Nausea, Vomiting Genitourinary: Denies: Dysuria, Hematuria Endocrine: Denies: Heat/ Cold Intolerance, Polydipsia, Polyuria Hematologic/ Lymphatic: Denies: Easy Bruising, Easy Bleeding - Physical Exam Vital Signs Temp Pulse Resp BP 97.4 F L 82 18 134/66 H 03/10/18 10:57 03/10/18 10:57 03/10/18 10:57 03/10/18 10:57 General: Alert, Oriented x3, Cooperative, No apparent distress, Well developed, Well nourished HEENT: Atraumatic, PERRLA, EOMI, Normocephalic Oral: Moist Mucosa Neck: No JVD Lungs: Normal air movement Abdomen: Non-Distended Extremities: No clubbing, No cyanosis, No Calf Tenderness, - - Minimal swelling in the mid is noted in the left lower extremity. The wound is now nearly totally healed. There is only a very small residual area which is yet to heal. There is no sign of infection or cellulitis. Dimensions are documented elsewhere. There is a small amount of bioburden. Mild ecchymosis is noted about the left knee, the result of her recent fall while descending the steps, which occurred since the patient's last visit. Skin: No rashes Wound Measurements and Assessment WC - Nurse 1 - General Ulcer Measurement Start: 02/17/18 11:22 Freq: Status: Active Protocol: Activity Type Activity Date Activity User E-Sign Co-Sign Detail Recorded Client Recorded Date Recorded By Document 03/10/18 10:57 DL [id number] 03/10/18 11:03 DL 03/10/18 10:57 Wound Center Nurse 1 [Ulcer Assessment] #7 LATERAL LLE- POST OP 09/12/17 -Current Size (cm) - Length 0.1 -Current Size (cm) - Width 0.1 -Current Size (cm) - Depth 0.1 -Total Square Cm 0.01 -Photo Taken No -Exudate Amt None Present (0 %) -Wound Margin Thickened -Granulation Amt Large (67-100%) -Granulation Quality Portis -Necrosis Amt Small (1-33%) -Necrotic Tissue Type Adherent Slough -Structure Exposed N/A -Texture (Karin-wound Skin Appearance) Localized Edema Scarring -Moisture (Karin-wound Skin Appearance Dry/Scaly ) -Color (Karin-wound Skin Appearance) No Abnormality -Temperature (Karin-wound Skin No Abnormality Appearance) (Pt Warm) -Ulcer Cleansing Rinsed/ Irrigated with Saline -Foul Odor after Cleansing No -Anesthetic Used 4% Lidocaine Solution [Edema Assessment] -Left Calf (cm) 37 -Left Ankle (cm) 23.3 - Nurse 2 - General Ulcer CM Notes Start: 02/17/18 11:22 Freq: Status: Active Protocol: Activity Type Activity Date Activity User E-Sign Co-Sign Detail Recorded Client Recorded Date Recorded By Document 03/10/18 11:09 JS [id number] 03/10/18 11:21 JS 03/10/18 11:09 Wound Center Nurse 2 [Procedure/Treatment] #7 LATERAL LLE- POST OP 09/12/17 -Time 11:09 -Correct Patient Yes -Correct Side, Site, Position Yes -Correct Procedure Yes -Procedure Performed Yes -Type of Procedure Debridement -Clinical Debridement Subcutaneous -Post Debridement Size (cm) - Length 4.6 -Post Debridement Size (cm) - Width 0.5 -Post Debridement Size (cm) - Depth 0.1 -Total Square Cm 2.30 -Wound/Ulcer Outcome Not Healed -Ulcer Cleansing Rinsed/ Irrigated with Saline -Foul Odor after Cleansing No -Bioengineered Tissue No -Injectable Lidocaine (%) 4 -Injectable Lidocaine w/ Epi (%) 5 -Bleeding Controlled with NA -Treatment Response Procedure Tolerated Well [See Physician Procedure note for Specifics] Pain Scale: 0-10 Numeric [Pain] -Is Patient Pain Free? Yes Musculoskeletal: No Muscle Wasting Neurological: Cranial nerves II-XII grossly intact, Neuro grossly intact Psych/Mental Status: Normal Affect, Appropriate, Alert and oriented to time, place, person, mood and affect Debridement Note Post-Debridement Measurements/Treatment WC - Nurse 2 - General Ulcer CM Notes Start: 02/17/18 11:22 Freq: Status: Active Protocol: Activity Type Activity Date Activity User E-Sign Co-Sign Detail Recorded Client Recorded Date Recorded By Document 02/17/18 11:39 DV [id number] 02/17/18 11:46 DV Document 02/24/18 11:31 JS [id number] 02/24/18 11:48 JS Document 03/10/18 11:09 [id number] 03/10/18 11:21 JS 02/17/18 02/24/18 03/10/18 11:39 11:31 11:09 Wound Center Nurse 2 #7 LATERAL LLE- POST OP 09/12/17 -Time 11:40 11:31 11:09 -Correct Patient Yes Yes Yes -Correct Side, Site, Position Yes Yes Yes -Correct Procedure Yes Yes -Procedure Performed No No Yes -Type of Procedure Debridement Debridement -Clinical Debridement Selective Subcutaneous -Post Debridement Size (cm) - Length 0.2 4.6 -Post Debridement Size (cm) - Width 0.2 0.5 -Post Debridement Size (cm) - Depth 0.1 0.1 -Total Square Cm 0.04 2.30 -Wound/Ulcer Outcome Not Healed Not Healed Not Healed -Ulcer Cleansing Rinsed/ Rinsed/ Rinsed/ Irrigated with Irrigated with Irrigated with Saline Saline Saline -Foul Odor after Cleansing No No No -Bioengineered Tissue No No No -Topical Lidocaine (%) 4 -Injectable Lidocaine (%) 4 -Lidocaine (ml) 10 -Injectable Lidocaine w/ Epi (%) 5 -Bleeding Controlled with Pressure NA NA -Treatment Response Procedure Procedure Procedure Tolerated Well Tolerated Well Tolerated Well Pain Scale: 0-10 Numeric Is Patient Pain Free? Yes Yes Yes Laterality: Left - Lateral calf Type of Debridement: Excisional debridement Anesthesia Used: 4% Lidocaine Solution Depth: Down to and including healthy tissue, in the subcutaneous layer Percentage of wound debrided: 100 Instrument Used: 7mm curette Severity: Fat Layer Exposed Amount of bleeding with debridement: Mild Bleeding Controlled with: Compression and gauze Patient tolerated procedure well Assessment/Plan Active Problems Open wound (Chronic) Open wound of left lower leg (Chronic) Traumatic open wound of left lower leg (Chronic) Leg swelling (Chronic) Traumatic wound (Chronic) Open wound of left lower extremity (Chronic) Assessment: This is a 77-year-old male with a traumatic injury to the left lateral calf. The patient appears to be responding well to current measures, which has included the use of collagen hydrogel topically for the last several weeks. He is doing extremely well. His wound appears generally healed, with very fresh epithelium over most recently healed portion of the wound. Plan: The patient is to apply gauze to the freshly epithelialized portion of the wound. Collagen hydrogel and Adaptic will be applied daily on the very small residual portion of the wound which is yet to heal. He is to continue with leg elevation as much as possible. He is to continue sleeping on a flat mattress at night. Compression will be applied by graduated compression stockings of 20-30 mmHg compression. Patient will return in 1 week for reassessment. It is anticipated that the patient will be completely healed at that time. Intake of a well-balanced and nutritious diet has been advised. Patient has been advised to elevate his lower extremities, to minimize swelling and edema. The patient is not a smoker. Influenza vaccine was not administered today. Patient stands 5 feet 4 inches tall. He weighs 210 pounds. His BMI is 36.0, which places him in a class II category. Weight loss has been recommended, with collaboration with his primary care physician.
[2018-03-17 11:50] VITALS: BP 131/76; PULSE 86; RESP 18; TEMP 37
--- NOTE | 2018-03-17 13:28 | PCM.WC.HP ---
(1) Obesity Status: Chronic Current Visit: No Code(s): E66.9 - Obesity, unspecified (2) Open wound Status: Chronic Current Visit: Yes Code(s): T14.8 - Other injury of unspecified body region (3) Open wound of left lower leg Status: Chronic Current Visit: Yes Qualifiers: Encounter type: subsequent encounter Code(s): S81.802A - Unspecified open wound, left lower leg, initial encounter (4) Traumatic open wound of left lower leg Status: Chronic Current Visit: Yes Qualifiers: Encounter type: subsequent encounter Code(s): S81.802A - Unspecified open wound, left lower leg, initial encounter (5) Leg swelling Status: Chronic Current Visit: Yes Code(s): M79.89 - Other specified soft tissue disorders (6) Traumatic wound Status: Chronic Current Visit: Yes (7) Open wound of left lower extremity Status: Chronic Current Visit: Yes Qualifiers: Encounter type: subsequent encounter Code(s): S81.802A - Unspecified open wound, left lower leg, initial encounter (8) History of pulmonary embolism Status: Chronic Current Visit: No Code(s): Z86.711 - Personal history of pulmonary embolism (9) Iron deficiency anemia Status: Chronic Current Visit: No Code(s): D50.9 - Iron deficiency anemia, unspecified (10) Pulmonary nodule Status: Chronic Current Visit: No Code(s): R91.1 - Solitary pulmonary nodule (11) HLD (hyperlipidemia) Status: Chronic Current Visit: No Code(s): E78.5 - Hyperlipidemia, unspecified (12) Diverticulosis Status: Chronic Current Visit: No Code(s): K57.90 - Diverticulosis of intestine, part unspecified, without perforation or abscess without bleeding (13) Asthma Status: Chronic Current Visit: No Code(s): J45.909 - Unspecified asthma, uncomplicated (14) Hypertension Status: Chronic Current Visit: No Qualifiers: Code(s): I10 - Essential (primary) hypertension (15) Osteoarthritis Status: Chronic Current Visit: No (16) History of prostate cancer Status: Chronic Current Visit: No Code(s): Z85.46 - Personal history of malignant neoplasm of prostate (17) Allergic rhinitis Status: Chronic Current Visit: No Code(s): J30.9 - Allergic rhinitis, unspecified (18) Rheumatoid arthritis Status: Chronic Current Visit: No Code(s): M06.9 - Rheumatoid arthritis, unspecified (19) Pleural plaque Status: Chronic Current Visit: No Code(s): J92.9 - Pleural plaque without asbestos (20) Macular degeneration Status: Chronic Current Visit: No Code(s): H35.30 - Unspecified macular degeneration (21) GERD (gastroesophageal reflux disease) Status: Chronic Current Visit: No Code(s): K21.9 - Gastro-esophageal reflux disease without esophagitis History of Present Illness Chief Complaint: Recent traumatic injury of the left lower extremity with residual open wound History of Wound: This is a 77-year-old male who was in his normal state of health until September 06, 2017, at which time he sustained an injury to the left lateral calf, the result of a shovel which impaled into his left leg. The patient was rushed to the emergency department on that date, where he was treated by means of wound closure using sutures. Four days later, he had developed a cellulitis, and was admitted to the hospital for treatment. Patient was treated with antibiotics, and subsequently underwent wide surgical debridement of necrotic tissue by Dr. Homero Chin on September 12, 2017. Patient was discharged on September 16, 2017. He was discharged on Cipro 500 mg p.o. twice daily and Augmentin 875 mg p.o. twice daily. At the time of discharge, arrangements were made for the wound VAC to be the means of treatment, which has been changed every several days by home health nursing personnel. The patient had been on Xarelto and treatment for a pulmonary embolism which was diagnosed in January 2017. As result of his injury, the Xarelto has been discontinued. A noninvasive lower extremity arterial study performed in August 2016 revealed no evidence of arterial occlusive disease in the lower extremities. Therefore, there is no reason to believe there is since of any significant arterial occlusive disease. The patient has done well, showing progress with the use of the wound VAC. The patient developed cellulitis in his left lower extremity associated with fever. He was hospitalized at [facility] for approximately 4 days. He was treated initially with intravenous antibiotics consisting of Zosyn, and was subsequently discharged with a prescription for Augmentin, which has been completed. The wound VAC was discontinued, and alternative means have been implemented since that time. Collagen hydrogel is currently being applied topically every day. Past Medical History Past Medical History: Chronic Problems Obesity (Chronic) Open wound (Chronic) Open wound of left lower leg (Chronic) Traumatic open wound of left lower leg (Chronic) Leg swelling (Chronic) Traumatic wound (Chronic) Open wound of left lower extremity (Chronic) History of pulmonary embolism (Chronic) Iron deficiency anemia (Chronic) Pulmonary nodule (Chronic) HLD (hyperlipidemia) (Chronic) Diverticulosis (Chronic) Asthma (Chronic) Hypertension (Chronic) Osteoarthritis (Chronic) History of prostate cancer (Chronic) Allergic rhinitis (Chronic) Rheumatoid arthritis (Chronic) Pleural plaque (Chronic) Macular degeneration (Chronic) GERD (gastroesophageal reflux disease) (Chronic) Surgical History: - - Umbilical hernia repair, appendectomy, bilateral carpal tunnel surgery, Prostatectomy, Cataract surgery, L lens implant, L knee surgery followed by LTKR, L shoulder surgery, left total hip replacement. Allergies/Adverse Reactions: Allergies indomethacin [From Indocin] Allergy (Verified 12/06/17 11:12) Itching indomethacin sodium [From Indocin] Allergy (Verified 12/06/17 11:12) Itching oxycodone HCl [From Percocet] Allergy (Verified 12/06/17 11:12) Itching Home Medications: Ambulatory Orders Medication Instructions Recorded Albuterol Sulfate [Proventil Hfa] 2 puff IH BID 07/13/13 Azelastine HCl [Astelin] 2 spray NASAL BID 07/13/13 Fluticasone 0.05% [Flonase Nasal 2 spray NASAL BID 07/13/13 [place]] Montelukast [Singulair] 10 mg PO QHS 07/13/13 Sertraline HCl [Zoloft] 150 mg PO DAILY 07/13/13 Tiotropium [place] [Spiriva 18 MCG] 1 puff INHALATION DAILY 07/13/13 Atorvastatin Calcium [Lipitor] 10 mg PO QHS 10/26/14 Lisinopril [Zestril] 20 mg PO DAILY 10/26/14 Ferrous Sulfate 325 mg PO BID 07/14/15 Multivitamin [Daily Multiple 1 each PO DAILY 07/14/15 Vitamin] Omeprazole [Prilosec] 20 mg PO DAILY 07/14/15 Polyethylene Glycol 3350 [Miralax] 17 gm PO DAILY PRN 07/14/15 Ipratropium [Atrovent Aerosols] 0.5 mg INHALATION 4X/DAY PRN 09/03/16 Guaifenesin [Mucinex] 600 mg PO BID 01/12/17 Fluticasone/Salmeterol [Advair Hfa 2 puff INHALATION BID 06/22/17 230-21 Mcg Inhaler] Nystatin/Triamcin Cream [Mycolog] 1 applic TOPICAL BID PRN 06/22/17 Hydrocodone Bitart/Apap 5-325 1 tab PO Q4H PRN PRN #20 tab 09/16/17 [[place] 5/325] Lactobacillus Acidophilus 2 tab PO TID #30 tab 09/16/17 [Acidophilus] Amoxicillin/Potassium Clav 1 ea PO BID 7 Days #14 tab 11/10/17 [Augmentin 875-125 Tablet] Prednisone [Deltasone] 60 mg PO DAILY #15 tab 12/06/17 - Family History Sibling Diabetes, Renal Disease, - - Patient's father at the age of 76 with history of colon cancer myocardial infarction. Patient's mother at age of 86 with a history of breast cancer. Maternal Cancer Paternal Cancer Smoking Status: Never smoker Tobacco Use: Non-smoker Review of Systems Constitutional: Denies: Chills, Fever, Weight Change Eyes: Denies: Pain, Vision Change HEENT: Denies: Difficulty Hearing, Difficulty Swallowing, Sinus Congestion Cardiovascular: Denies: Chest Pain, Palpitations Respiratory: Denies: Cough, Shortness of Breath Gastrointestinal: Denies: Diarrhea, Nausea, Vomiting Genitourinary: Denies: Dysuria, Hematuria Endocrine: Denies: Heat/ Cold Intolerance, Polydipsia, Polyuria Hematologic/ Lymphatic: Denies: Easy Bruising, Easy Bleeding - Physical Exam Vital Signs Temp Pulse Resp BP 98.6 F 86 18 131/76 H 03/17/18 11:50 03/17/18 11:50 03/17/18 11:50 03/17/18 11:50 General: Alert, Oriented x3, Cooperative, No apparent distress, Well developed, Well nourished HEENT: Atraumatic, PERRLA, EOMI, Normocephalic Oral: Moist Mucosa Neck: No JVD Lungs: Normal air movement Abdomen: Non-Distended Extremities: No clubbing, No cyanosis, No edema, No Calf Tenderness, - - Traumatic wound on the left lateral calf is now completely healed and epithelialized. Skin: No rashes, No breakdown Wound Measurements and Assessment - Nurse 1 - General Ulcer Measurement Start: 02/17/18 11:22 Freq: Status: Active Protocol: Activity Type Activity Date Activity User E-Sign Co-Sign Detail Recorded Client Recorded Date Recorded By Document 03/17/18 11:50 DL [id number] 03/17/18 11:55 DL 03/17/18 11:50 Wound Center Nurse 1 [Ulcer Assessment] #7 LATERAL LLE- POST OP 09/12/17 -Current Size (cm) - Length 0.1 -Current Size (cm) - Width 0.1 -Current Size (cm) - Depth 0.1 -Total Square Cm 0.01 -Photo Taken No -Exudate Amt None Present (0 %) -Wound Margin Flat & Intact -Granulation Amt Large (67-100%) -Granulation Quality [place] -Necrosis Amt None Present (0 %) -Structure Exposed N/A -Texture (Karin-wound Skin Appearance) Scarring -Moisture (Karin-wound Skin Appearance Dry/Scaly ) -Color (Karin-wound Skin Appearance) No Abnormality -Temperature (Karin-wound Skin No Abnormality Appearance) (Pt Warm) -Tenderness on Palpation (Karin-wound No Skin Appearance) -Ulcer Cleansing Wound Cleanser -Foul Odor after Cleansing No [Edema Assessment] -Left Calf (cm) 38 -Left Ankle (cm) 24 - Nurse 2 - General Ulcer CM Notes Start: 02/17/18 11:22 Freq: Status: Active Protocol: Activity Type Activity Date Activity User E-Sign Co-Sign Detail Recorded Client Recorded Date Recorded By Document 03/17/18 12:41 [id number] 03/17/18 12:47 JS 03/17/18 12:41 Wound Center Nurse 2 [Procedure/Treatment] #7 LATERAL LLE- POST OP 09/12/17 -Time 12:41 -Correct Patient Yes -Correct Side, Site, Position Yes -Correct Procedure Yes -Procedure Performed No -Post Debridement Size (cm) - Length 0 -Post Debridement Size (cm) - Width 0 -Post Debridement Size (cm) - Depth 0 -Total Square Cm 0 -Wound/Ulcer Outcome Healed- Epithelialized -Ulcer Cleansing Not Cleansed -Foul Odor after Cleansing No -Bioengineered Tissue No -Bleeding Controlled with NA -Treatment Response Procedure Tolerated Well [See Physician Procedure note for Specifics] Pain Scale: 0-10 Numeric [Pain] -Is Patient Pain Free? Yes Neurological: Cranial nerves II-XII grossly intact, Neuro grossly intact Psych/Mental Status: Normal Affect, Appropriate, Alert and oriented to time, place, person, mood and affect Debridement Note Post-Debridement Measurements/Treatment WC - Nurse 2 - General Ulcer CM Notes Start: 02/17/18 11:22 Freq: Status: Active Protocol: Activity Type Activity Date Activity User E-Sign Co-Sign Detail Recorded Client Recorded Date Recorded By Document 02/17/18 11:39 DV [id number] 02/17/18 11:46 DV Document 02/24/18 11:31 JS [id number] 02/24/18 11:48 JS Document 03/10/18 11:09 JS [id number] 03/10/18 11:21 JS Document 03/17/18 12:41 JS [id number] 03/17/18 12:47 JS 02/17/18 02/24/18 03/10/18 11:39 11:31 11:09 Wound Center Nurse 2 #7 LATERAL LLE- POST OP 09/12/17 -Time 11:40 11:31 11:09 -Correct Patient Yes Yes Yes -Correct Side, Site, Position Yes Yes Yes -Correct Procedure Yes Yes -Procedure Performed No No Yes -Type of Procedure Debridement Debridement -Clinical Debridement Selective Subcutaneous -Post Debridement Size (cm) - Length 0.2 4.6 -Post Debridement Size (cm) - Width 0.2 0.5 -Post Debridement Size (cm) - Depth 0.1 0.1 -Total Square Cm 0.04 2.30 -Wound/Ulcer Outcome Not Healed Not Healed Not Healed -Ulcer Cleansing Rinsed/ Rinsed/ Rinsed/ Irrigated with Irrigated with Irrigated with Saline Saline Saline -Foul Odor after Cleansing No No No -Bioengineered Tissue No No No -Topical Lidocaine (%) 4 -Injectable Lidocaine (%) 4 -Lidocaine (ml) 10 -Injectable Lidocaine w/ Epi (%) 5 -Bleeding Controlled with Pressure NA NA -Treatment Response Procedure Procedure Procedure Tolerated Well Tolerated Well Tolerated Well Pain Scale: 0-10 Numeric Is Patient Pain Free? Yes Yes Yes 03/17/18 12:41 Wound Center Nurse 2 #7 LATERAL LLE- POST OP 09/12/17 -Time 12:41 -Correct Patient Yes -Correct Side, Site, Position Yes -Correct Procedure Yes -Procedure Performed No -Type of Procedure -Clinical Debridement -Post Debridement Size (cm) - Length 0 -Post Debridement Size (cm) - Width 0 -Post Debridement Size (cm) - Depth 0 -Total Square Cm 0 -Wound/Ulcer Outcome Healed- Epithelialized -Ulcer Cleansing Not Cleansed -Foul Odor after Cleansing No -Bioengineered Tissue No -Topical Lidocaine (%) -Injectable Lidocaine (%) -Lidocaine (ml) -Injectable Lidocaine w/ Epi (%) -Bleeding Controlled with NA -Treatment Response Procedure Tolerated Well Pain Scale: 0-10 Numeric Is Patient Pain Free? Yes No debridement was completed today Assessment/Plan Active Problems Open wound (Chronic) Open wound of left lower leg (Chronic) Traumatic open wound of left lower leg (Chronic) Leg swelling (Chronic) Traumatic wound (Chronic) Open wound of left lower extremity (Chronic) Assessment: This is a 77-year-old male with a traumatic injury to the left lateral calf. The patient appears to be responding well to current measures, which has included the use of collagen hydrogel topically for the last several weeks. He is doing extremely well. His wound is now completely healed and epithelialized. Plan: The patient's wound is completely healed. He is to be discharged at this time. He will follow-up henceforth on an as-needed basis. He is to continue sleeping on a flat mattress at night. Compression will continue by graduated compression stockings of 20-30 mmHg compression. Patient has been advised to elevate his lower extremities for the long-term, to minimize swelling and edema. The patient is not a smoker. Influenza vaccine was not administered today. Patient stands 5 feet 4 inches tall. He weighs 210 pounds. His BMI is 36.0, which places him in a class II category. Weight loss has been recommended, with collaboration with his primary care physician.
== END 2018-03-18 23:59 ==
LOC: WC 11:30
PROVIDERS: Family Provider Internal Medicine; PCP Internal Medicine; Visit Provider Surgery
DX: S81.832A Puncture wound without foreign body, left lower leg, initial encounter (principal); W22.8XXA Striking against or struck by other objects, initial encounter; Z85.46 Personal history of malignant neoplasm of prostate; M06.9 Rheumatoid arthritis, unspecified; K21.9 Gastro-esophageal reflux disease without esophagitis; H35.30 Unspecified macular degeneration; M19.90 Unspecified osteoarthritis, unspecified site; I10 Essential (primary) hypertension; J45.909 Unspecified asthma, uncomplicated; E78.5 Hyperlipidemia, unspecified; R91.1 Solitary pulmonary nodule; D50.9 Iron deficiency anemia, unspecified; Z86.711 Personal history of pulmonary embolism; M79.89 Other specified soft tissue disorders; Z79.899 Other long term (current) drug therapy
CPT/HCPCS: 11042; 97597; 99211; 99212; G0463

== ENCOUNTER 2018-05-01 10:58 | Emergency (ER) | payer MEDICARE, SELFPAY ==
[2018-04-08 14:01] VITALS: BMI 34.4
[2018-05-01 11:00] VITALS: BP 127/71; PULSE 92; RESP 18; TEMP 36.6; O2SAT 96; BMI 34.1
[2018-05-01 11:08] VITALS: BP 128/76; PULSE 83; RESP 15; O2SAT 95
--- NOTE | 2018-05-01 11:10 | EKG12_ITS ---
Test Reason : CHEST PAIN Blood Pressure : / mmHG Vent. Rate : 100 BPM Atrial Rate : 087 BPM P-R Int : 140 ms QRS Dur : 090 ms QT Int : 354 ms P-R-T Axes : 060 067 057 degrees QTc Int : 456 ms Normal sinus rhythm Otherwise normal ECG Confirmed by OPAL MOULTON, MARI ([id number]), slot editor YARON WOODS ([id number] on 05/04/2018 7:38:43 AM Referred By: DC Confirmed By:MARI JOSEPH MD
--- NOTE | 2018-05-01 11:17 | RAD_ITS ---
STUDY: X-RAY CHEST REASON FOR EXAM: Male, 77 years old. Chest pain. TECHNIQUE: Single AP portable view of the chest. COMPARISON: Comparison is made with prior study dated November 06, 2017. FINDINGS: EKG electrodes are seen. Stable mild elevation of the right hemidiaphragm. Stable calcified pleural plaques bilaterally. There is mild cardiac enlargement. Normal mediastinum and mamadou. Normal visualized pulmonary arteries. Normal visualized aortic arch and descending thoracic aorta. There is a mild levoscoliosis of the thoracic spine. Normal visualized ribs, clavicles, and shoulders. There is no demonstrated abnormality of the visualized soft tissue structures of the upper abdomen. RAD/Chest 1 View (Portable) IMPRESSION: Mild cardiomegaly. Stable bilateral pleural plaque calcifications. Electronically Signed: Antonio Kahn MD at 13:18 EST Tel [phone], Service support ,
--- NOTE | 2018-05-01 11:26 | ED.VISSUMM ---
- ER Visit Summary Date of Service: 05/01/18 Chief Complaint: Chest pain History of Present Illness: The patient is a 77 M who presents with chest pain. He has had intermittent episodes of chest pain since last night. It is across his chest. It did radiate to his left arm and left jaw. He has associated shortness of breath. Nothing makes his pain better or worse. He states after these episodes he has felt rundown and tired. He has no history of coronary artery disease but he is scheduled to have a stress test in 3 days. Physical Examination: Vital signs reviewed. HEENT exam unremarkable. Heart is regular rate and rhythm without murmurs. Lungs are clear to auscultation. Abdomen is soft and nontender. Extremities reveal no edema. Peripheral pulses are equal. Skin exam normal. Neurologic exam normal. Test Results: EKG is sinus rhythm with a rate of 100. Nonspecific ST and T wave changes noted. Chest x-ray reveals chronic changes. Hemoglobin 11.5. Troponin normal. Creatinine 1.57 Emergency Department Course and Treatment: Patient was given aspirin. Upon reevaluation he is pain-free. At this time I do not feel this is cardiac in nature. He has a stress test scheduled in 3 days. I feel that he can follow-up at that time for this. Treatment Plan: [] Disposition: Discharge Impression: Chest pain This note was generated with [employer] dictation software. It may contain incorrect words, spelling, and punctuation that were not noted in review of the chart prior to signing ED Disposition - Plan for ED Patient: Disposition: Home or Assisted Living Chief Complaint: Chest Pain Instructions: ED Chest Pain NonCardiac Referrals: Lambert Larios MD [Primary Care Provider] -
[2018-05-01 11:35] LABS: Absolute Lymphocyte Count 0.94 X10^3/ul (0.83-4.51); Absolute Neutrophil Count 5.2 X10^3/uL (2.0-7.7); Eosinophil# 0.11 X10^3/uL; Eosinophils% 1.6 % (0-5); Hematocrit 35.9 % (40-54); Hemoglobin 11.5 g/dl (13.0-16.5); Lymphocyte # 0.94 X10^3/ul (4.0); Lymphocyte % 13.6 % (19-41); Mean Corpuscular Hgb 27.3 pg (27.0-32.0); Mean Corpuscular Volume 85.3 fL (80-94); Mean Platelet Vol. 9.3 fl (6.2-12.0); Monocyte# 0.59 X10^3/uL; Monocyte% 8.6 % (0-10); Neutrophil # 5.24 X10^3/uL (2.7-7.7); Neutrophil % 76.1 % (47-70); Platelet Count 177 K/mm3 (150-450); RBC Distribution Width CV 16.9 % (11.6-14.6); RBC Distribution Width SD 53.5 fl (35.1-43.9); Red Blood Count 4.21 M/mm3 (4.6-6.2); White Blood Count 6.9 K/mm3 (4.4-11.0)
[2018-05-01 11:36] LABS: POSITIVE COUNT NO; POSITIVE DIFFERENTIAL NO; POSITIVE MORPHOLOGY NO
[2018-05-01 11:46] LABS: Anion Gap 8 (5-15); BUN 48 mg/dL (7-18); BUN/Creat Ratio 30.6 RATIO (10-20); Calcium,Total 9.1 mg/dL (8.5-10.1); Chloride 108 mmol/L (98-107); Creatinine, Serum 1.57 mg/dL (0.70-1.30); EST Glomerular Filtration Rate 46 mL/min (>60); Est Glom Filt Rate - Afr Amer 55 mL/min (>60); Estimated Creatinine Clearance 33.19 ml/min; Glucose 117 mg/dL (74-106); Sodium Level 138 mmol/L (136-145)
[2018-05-01 12:02] VITALS: BP 115/59; PULSE 72; RESP 16; O2SAT 95
[2018-05-01 13:00] VITALS: BP 125/73; PULSE 70; RESP 16; O2SAT 97
--- NOTE | 2018-05-01 13:53 | ED.DEP ---
ED Disposition - Plan for ED Patient: Disposition: Home or Assisted Living Chief Complaint: Chest Pain Instructions: ED Chest Pain NonCardiac Referrals: Lambert Larios MD [Primary Care Provider] -
[2018-05-01 14:07] VITALS: BP 132/79; PULSE 80; RESP 17; O2SAT 99
--- OUTSIDE RECORDS SUMMARY | 2018-06-17 03:57 | XMS RPT_ITS ---
:1940 Author Organization OHIP Support Name Relationship Address Phone EITAN YIP Unavailable [address] + [place] [address] KLEPPER, OSCAR Unavailable [address] + [place] [address] R Unavailable Unavailable Unavailable KLECITLALIER, EITAN Unavailable [address] + [place] [address] KLEPPER, OSCAR Unavailable [address] + [place] [address] R Unavailable Unavailable Unavailable KLEPPER, EITAN Unavailable [address] + [place] [address] KLEPPER, OSCAR Unavailable [address] + [place] [address] R Unavailable Unavailable Unavailable KLEPPER, EITAN Unavailable [address] + [place] [address] KLEPPER, OSCAR Unavailable [address] + [place] [address] R Unavailable Unavailable Unavailable KLEPPER, EITAN Unavailable [address] + [place] [address] KLEPPER, OSCAR Unavailable [address] + [place] [address] R Unavailable Unavailable Unavailable KLEPPER, EITAN Unavailable [address] + [place] [address] KLEPPER, OSCAR Unavailable [address] + [place] [address] R Unavailable Unavailable Unavailable KLEPPER, EITAN Unavailable [address] + [place] [address] KLEPPER, OSCAR Unavailable [address] + [place] [address] R Unavailable Unavailable Unavailable KLEPPER, EITAN Unavailable [address] + [place] [address] KLEPPER, OSCAR Unavailable [address] + [place] [address] R Unavailable Unavailable Unavailable KLEPPER, EITAN Unavailable [address] + [place] [address] KLEPPER, OSCAR Unavailable [address] + [place] [address] R Unavailable Unavailable Unavailable KLEPPER, EITAN Unavailable [address] + [place] [address] KLEPPER, OSCAR Unavailable [address] + [place] [address] R Unavailable Unavailable Unavailable KLEPPER, EITAN Unavailable [address] + [place] [address] KLEPPER, OSCAR Unavailable [address] + [place] [address] R Unavailable Unavailable Unavailable KLEPPER, EITAN Unavailable [address] + [place] [address] KLEPPER, OSCAR Unavailable [address] + [place] [address] R Unavailable Unavailable Unavailable KLEPPER, EITAN Unavailable [address] + [place] [address] KLEPPER, OSCAR Unavailable [address] + [place] [address] R Unavailable Unavailable Unavailable KLEPPER, EITAN Unavailable [address] + [place] [address] KLEPPER, OSCAR Unavailable [address] + [place] [address] R Unavailable Unavailable Unavailable KLEPPER, EITAN Unavailable [address] + [place] [address] KLEPPER, OSCAR Unavailable [address] + [place] [address] R Unavailable Unavailable Unavailable KLEPPER, EITAN Unavailable [address] + [place] [address] KLEPPER, OSCAR Unavailable [address] + [place] [address] R Unavailable Unavailable Unavailable KLEPPER, EITAN Unavailable [address] + [place] [address] KLEPPER, OSCAR Unavailable [address] + [place] [address] R Unavailable Unavailable Unavailable KLEPPER, EITAN Unavailable [address] + [place] [address] KLEPPER, OSCAR Unavailable [address] + [place] [address] R Unavailable Unavailable Unavailable KLEPPER, EITAN Unavailable [address] + [place] [address] KLEPPER, OSCAR Unavailable [address] + [place] [address] R Unavailable Unavailable Unavailable KLEPPER, EITAN Unavailable [address] + [place] [address] KLEPPER, OSCAR Unavailable [address] + [place] [address] R Unavailable Unavailable Unavailable KLEPPER, EITAN Unavailable [address] + [place] [address] KLEPPER, OSCAR Unavailable [address] + [place] [address] R Unavailable Unavailable Unavailable KLEPPER, EITAN Unavailable [address] + [place] [address] KLEPPER, OSCAR Unavailable [address] + [place] [address] R Unavailable Unavailable Unavailable KLEPPER, EITAN Unavailable [address] + [place] [address] KLEPPER, OSCAR Unavailable [address] + [place] [address] R Unavailable Unavailable Unavailable KLEPPER, EITAN Unavailable [address] + [place] [address] KLEPPER, OSCAR Unavailable [address] + [place] [address] R Unavailable Unavailable Unavailable KLEPPER, EITAN Unavailable [address] + [place] [address] KLEPPER, OSCAR Unavailable [address] + [place] [address] R Unavailable Unavailable Unavailable KLEPPER, EITAN Unavailable [address] + [place] [address] KLEPPER, OSCAR Unavailable [address] + [place] [address] R Unavailable Unavailable Unavailable KLEPPER, EITAN Unavailable [address] + [place] [address] KLEPPER, OSCAR Unavailable [address] + [place] [address] R Unavailable Unavailable Unavailable KLEPPER, EITAN Unavailable [address] + [place] [address] KLEPPER, OSCAR Unavailable [address] + [place] [address] R Unavailable Unavailable Unavailable KLEPPER, EITAN Unavailable [address] + [place] [address] KLEPPER, OSCAR Unavailable [address] + [place] [address] R Unavailable Unavailable Unavailable KLEPPER, EITAN Unavailable [address] + [place] [address] KLEPPER, OSCAR Unavailable [address] + [place] [address] R Unavailable Unavailable Unavailable KLEPPER, EITAN Unavailable [address] + [place] [address] KLEPPER, OSCAR Unavailable [address] + [place] [address] R Unavailable Unavailable Unavailable KLEPPER, EITAN Unavailable [address] + [place] [address] KLEPPER, OSCAR Unavailable [address] + [place] [address] R Unavailable Unavailable Unavailable KLEPPER, EITAN Unavailable [address] + [place] [address] KLEPPER, OSCAR Unavailable [address] + [place] [address] R Unavailable Unavailable Unavailable KLEPPER, EITAN Unavailable [address] + [place] [address] KLEPPER, OSCAR Unavailable [address] + [place] [address] R Unavailable Unavailable Unavailable KLEPPER, EITAN Unavailable [address] + [place] [address] KLEPPER, OSCAR Unavailable [address] + [place] [address] R Unavailable Unavailable Unavailable KLEPPER, EITAN Unavailable [address] + [place] [address] KLEPPER, OSCAR Unavailable [address] + [place] [address] R Unavailable Unavailable Unavailable KLEPPER, EITAN Unavailable [address] + [place] [address] KLEPPER, OSCAR Unavailable [address] + [place] [address] R Unavailable Unavailable Unavailable KLEPPER, EITAN Unavailable [address] + [place] [address] KLEPPER, OSCAR Unavailable [address] + [place] [address] R Unavailable Unavailable Unavailable KLEPPER, EITAN Unavailable [address] + [place] [address] KLEPPER, OSCAR Unavailable [address] + [place] [address] R Unavailable Unavailable Unavailable Care Team Providers Name Role Phone Samina Sands CHILD NUTRITION MANAGER-C Attending Unavailable Lambert Larios Primary Care Unavailable Reg Verma Attending Unavailable Reg Verma Referring Unavailable Lambert Larios Primary Care Unavailable Lambert Larios Primary Care Unavailable Sandor Sebastian Attending Unavailable Ke Garcia Attending Unavailable Reg Verma Referring Unavailable Lambert Larios Primary Care Unavailable Leni Valentine Attending Unavailable Milli Diana Attending Unavailable Adalgisa, Milli Referring Unavailable Larios, Lambert Primary Care Unavailable Larios, Lambert Primary Care Unavailable Prasanth Meier Attending Unavailable Prasanth Meier Referring Unavailable Larios, Lambert Primary Care Unavailable [place], Neil Admitting Unavailable Chet Mckenna Consulting Unavailable Chapis Minor Attending Unavailable Christy Hinds Consulting Unavailable [place], Neil Admitting Unavailable [place], Neil Attending Unavailable Larios, Lambert Primary Care Unavailable [place], Neil Consulting Unavailable [place], Neil Admitting Unavailable Shane Gandhi Attending Unavailable Larios, Lambert Primary Care Unavailable Naveed, Chet Consulting Unavailable Hiram, Shane Consulting Unavailable [place], Neil Admitting Unavailable Elsy, Homero Attending Unavailable Larios, Lambert Primary Care Unavailable Naveed, Chet Consulting Unavailable Shane Gandhi Consulting Unavailable [place], Neil Admitting Unavailable Hiram, Shane Attending Unavailable Larios, Lambert Primary Care Unavailable Naveed, Chet Consulting Unavailable Shane Gandhi Consulting Unavailable [place], Neil Admitting Unavailable Elsy, Homero Attending Unavailable Larios, Lambert Primary Care Unavailable Naveed, Chet Consulting Unavailable Shane Gandhi Consulting Unavailable [place], Neil Admitting Unavailable Shane Gandhi Attending Unavailable Larios, Lambert Primary Care Unavailable Naveed, Chet Consulting Unavailable Shane Gandhi Consulting Unavailable [place], Neil Admitting Unavailable Prasanth Cueva Attending Unavailable Larios, Lambert Primary Care Unavailable Chet Mckenna Consulting Unavailable Shane Gandhi Consulting Unavailable [place], Neil Admitting Unavailable Shane Gandhi Attending Unavailable Larios, Lambert Primary Care Unavailable Chet Mckenna Consulting Unavailable KitShane mendoza Consulting Unavailable [place], Neil Admitting Unavailable Prasanth Cueva Attending Unavailable Larios, Lambert Primary Care Unavailable Naveed, Chet Consulting Unavailable Shane Gandhi Consulting Unavailable [place], Neil Admitting Unavailable Elsy, Homero Attending Unavailable Larios, Lambert Primary Care Unavailable Chet Mckenna Consulting Unavailable Chapis Minor Consulting Unavailable [place], Neil Admitting Unavailable Larios, Lambert Primary Care Unavailable Naveed, Chet Consulting Unavailable Alondra Leal Attending Unavailable [place], Kombian Consulting Unavailable Sam, Neil Admitting Unavailable Homero Chin Attending Unavailable Larios, Lambert Primary Care Unavailable Naveed, Chet Consulting Unavailable CelsayChristy Consulting Unavailable [place], Kombian Consulting Unavailable Sam, Neil Admitting Unavailable Larios, Lambert Primary Care Unavailable Naveed, Chet Consulting Unavailable Alondra Leal Attending Unavailable Slaby, Chrisyt Consulting Unavailable [place], Kombian Consulting Unavailable Sam, Neil Admitting Unavailable Christy Hinds Attending Unavailable Larios, Lambert Primary Care Unavailable Naveed, Chet Consulting Unavailable Slaby, Christy Consulting Unavailable [place], Kombian Consulting Unavailable Larios, Lambert Primary Care Unavailable Sands, Samina CHILD NUTRITION MANAGER-C Consulting Unavailable Samina Sands CHILD NUTRITION MANAGER-C Attending Unavailable Ke Garcia Attending Unavailable Larios, Lambert Primary Care Unavailable Wicho, Samina CHILD NUTRITION MANAGER-C Consulting Unavailable Oz Cooper Attending Unavailable Christy Hinds Attending Unavailable Homero Chin Referring Unavailable Larios, Lambert Primary Care Unavailable Imamura, Yoichi Admitting Unavailable Naveed, Chet Consulting Unavailable Ashelfah, Ghasem Attending Unavailable Imamura, Yoichi Admitting Unavailable Larios, Lambert Primary Care Unavailable Imamura, Yoichi Consulting Unavailable Darius Ceballos Attending Unavailable Imamura, Yoichi Admitting Unavailable TereletskyМарина Attending Unavailable Larios, Lambert Primary Care Unavailable Naveed, Chet Consulting Unavailable Tereletsky, Марина Consulting Unavailable Imamura, Yoichi Admitting Unavailable Larios, Lambert Primary Care Unavailable Naveed, Chet Consulting Unavailable Darius Ceballos Attending Unavailable Emilyeletsky, Марина Consulting Unavailable Imamura, Yoichi Admitting Unavailable Larios, Lambert Primary Care Unavailable Naveed, Chet Consulting Unavailable Darius Ceballos Attending Unavailable Imamura, Yoichi Consulting Unavailable Imamura, Yoichi Admitting Unavailable Ashelfah, Ghasem Attending Unavailable Larios, Lambert Primary Care Unavailable Naveed, Chet Consulting Unavailable Ashelfah, Ghasem Consulting Unavailable Oz Cooper Attending Unavailable Larios, Lambert Primary Care Unavailable Wicho, Samina CHILD NUTRITION MANAGER-C Consulting Unavailable Larios, Lambert Primary Care Unavailable Prasanth Meier Attending Unavailable Oz Cooper Attending Unavailable Larios, Lambert Primary Care Unavailable Sands, Samina CHILD NUTRITION MANAGER-C Consulting Unavailable CooperOz Attending Unavailable Larios, Lambert Primary Care Unavailable Sands, Samina CHILD NUTRITION MANAGER-C Consulting Unavailable Cooper Oz Attending Unavailable Larios, Lambert Primary Care Unavailable Sands, Samina CHILD NUTRITION MANAGER-C Consulting Unavailable CooperOz Attending Unavailable Larios, Lambert Primary Care Unavailable Sands, Samina CHILD NUTRITION MANAGER-C Consulting Unavailable Reg Verma Attending Unavailable Reg Veram Referring Unavailable Larios, Lambert Primary Care Unavailable TED KRAMER (SIGNAL OPERATOR) Attending Unavailable RAE, LENI (PA) Attending Unavailable RAE, LENI (PA) Referring Unavailable OLDER, ELENA ([facility]) Attending Unavailable OLDER, ELENA (SIGNAL OPERATOR) Referring Unavailable ATHY, ELEAZAR R (PA) Referring Unavailable PODLOGAR, SEEMA (SIGNAL OPERATOR) Attending Unavailable ATHY, ELEAZAR R (PA) Referring Unavailable RAE, LENI (PA) Attending Unavailable RAE, LENI (PA) Referring Unavailable LARIOS, GEOFFREY Referring Unavailable LARIOS, GEOFFREY Attending Unavailable LARIOS, GEOFFREY Referring Unavailable LARIOS, GEOFFREY Referring Unavailable PODLOGAR, SEEMA (SIGNAL OPERATOR) Referring Unavailable RAE, LENI (IAN) Attending Unavailable RAE, LENI (PA) Referring Unavailable LARIOS, GEOFFREY Attending Unavailable LARIOS, GEOFFREY Referring Unavailable RAE, LENI (PA) Referring Unavailable LARIOS, GEOFFREY Referring Unavailable RAE, LENI (PA) Referring Unavailable RAE, LENI (PA) Referring Unavailable SELVIN, LAPMAN Attending Unavailable RAE, LENI (PA) Referring Unavailable OLDER, ELENA (SIGNAL OPERATOR) Attending Unavailable RUTTIGLENNA ([facility]) Attending Unavailable RUTGLENNA DAVIES (SIGNAL OPERATOR) Referring Unavailable REG VERMA E Attending Unavailable REG VERMA E Referring Unavailable SELVIN, LAPROSELYN Referring Unavailable RAE, LENI (IAN) Referring Unavailable RAE, LENI (PA) Referring Unavailable RAE, LENI (PA) Attending Unavailable RAE, LENI (PA) Referring Unavailable LARIOS, GEOFFREY Attending Unavailable LARIOS, GEOFFREY Referring Unavailable ARMOGIDA, CHARI A Attending Unavailable OLDER, ELENA (SIGNAL OPERATOR) Attending Unavailable RAE, LENI (PA) Attending Unavailable RAELENI (PA) Referring Unavailable RAE, LENI (PA) Attending Unavailable RAE, LENI (PA) Referring Unavailable TED KRAMER (SIGNAL OPERATOR) Referring Unavailable LUCI, REG E Referring Unavailable LUCI, REG E Attending Unavailable RAE, LENI (PA) Referring Unavailable LUCI, REG E Referring Unavailable RAE, LENI (PA) Attending Unavailable RAE, LENI (PA) Referring Unavailable OLDER, ELENA (SIGNAL OPERATOR) Attending Unavailable OLDER, ELENA (SIGNAL OPERATOR) Referring Unavailable OLDER, ELENA (SIGNAL OPERATOR) Referring Unavailable LUCI, REG E Referring Unavailable RAE, LEIN (PA) Attending Unavailable LAMBERT LARIOS H Referring Unavailable LUCI, REG E Referring Unavailable RAE, LENI (PA) Referring Unavailable LUCI, REG E Referring Unavailable LUCI, REG E Referring Unavailable LUCI, REG E Referring Unavailable NITHYA GRANDE (PA) Attending Unavailable BRODERICK, JAYRAM Attending Unavailable LAMBERT LARIOS H Referring Unavailable LUCI, REG Attending Unavailable LUCI, REG Referring Unavailable BRODERICK, JAYRAM Attending Unavailable Lambert Larios MD Referring Unavailable Lambert Larios MD Primary Care Unavailable PROBLEMS PROBLEMS DATE TYPE CONDITION / CODE ATTENDING STATUS SOURCE 05/22/2018 Active Disorder of penis, BRODERICK, Active [place] unspecified / [facility] Clinic Other N48.9(ICD-10) [place] Repository 01/30/2017 Active Benign prostatic BRODERICK, Active [facility] hyperplasia without [facility] Clinic Other lower urinary tract [place] symptoms / Repository N40.0(ICD-10) 05/22/2018 Admitting Unknown / BRODERICK, Active [place] General diagnosis UNK(Unknown) [facility] Repository 05/14/2018 Active Other forms of NA Active Sol dyspnea / Clinic Main R06.09(ICD-10) [place] Repository 04/07/2018 Active Effusion, left NA Active Sol elbow / Clinic Main M25.422(ICD-10) [place] Repository 05/30/2015 Active Essential (primary) NA Active [facility] hypertension / Clinic Main I10(ICD-10) [place] Repository 03/25/2018 Active Nonrheumatic aortic NA Active Sol (valve) stenosis / Clinic Main I35.0(ICD-10) [place] Repository 03/04/2018 Active Lobar pneumonia, NA Active Sol unspecified Clinic Main organism / [place] J18.1(ICD-10) Repository 03/04/2018 Active Dyspnea, NA Active [facility] unspecified / Clinic Main R06.00(ICD-10) [place] Repository 03/04/2018 Active Other abnormalities NA Active Sol of breathing / Clinic Main R06.89(ICD-10) [place] Repository 03/04/2018 Active Personal history of NA Active [facility] pulmonary embolism Clinic Main / Z86.711(ICD-10) [place] Repository 12/19/2017 Active Severe persistent NA Active [facility] asthma, Clinic Main uncomplicated / [place] J45.50(ICD-10) Repository 11/05/2017 Active 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 / Clinic Main D68.52(ICD-10) [place] Repository 12/06/2017 Active Encounter for NA Active Sol follow-up Clinic Main examination after [place] completed treatment Repository for conditions other than malignant neoplasm / Z09(ICD-10) 11/12/2017 Active Pain in left toe(s) NA Active Sol / M79.675(ICD-10) Clinic Main [place] Repository 01/27/2017 Active Other pulmonary NA Active [facility] embolism without Clinic Main acute cor pulmonale [place] / I26.99(ICD-10) Repository 10/01/2017 Active Edema, unspecified NA Active Sol / R60.9(ICD-10) Clinic Main [place] Repository 09/25/2017 Active 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 / Clinic Main I27.82(ICD-10) [place] Repository 10/08/2017 Unknown T14.8 - Other Sementi, Active [place] injury of [facility] unspecified body Hospital region / Repository T14.8(ICD-10) 10/27/2017 Unknown S81.812A - hCristy Hinds Active [place] Laceration without Community foreign body, left Hospital lower leg, initial Repository encounter / S81.812A(ICD-10) 10/27/2017 Unknown L02.416 - Cutaneous Christy Hinds Active [place] abscess of left Community lower limb / Hospital L02.416(ICD-10) Repository 10/27/2017 Unknown L03.116 - Christy Hinds Active [place] Cellulitis of left Community lower limb / Hospital L03.116(ICD-10) Repository 08/29/2017 Active Other nonspecific NA Active [facility] abnormal finding of Clinic Main lung field / [place] R91.8(ICD-10) Repository 08/25/2017 Active Jaw pain / NA Active [facility] R68.84(ICD-10) Clinic Main [place] Repository 08/25/2017 Active Hyperkalemia / NA Active [facility] E87.5(ICD-10) Clinic Main [place] Repository 08/21/2017 Active Other fpc NA Active [facility] (current) drug Clinic Main therapy / [place] Z79.899(ICD-10) Repository 08/21/2017 Active Abnormal results of NA Active [facility] thyroid function [facility] Main studies / [place] R94.6(ICD-10) Repository 08/14/2017 Active Unknown / RAE, Active [facility] UNK(Unknown) LENI (IAN) Clinic Main [place] Repository 08/07/2017 Active Cough / R05(ICD-10) NA Active [facility] Main [place] Repository 07/21/2017 Active Other amnesia / NA Active [facility] R41.3(ICD-10) Clinic Main [place] Repository 07/21/2017 Active Other general NA Active [facility] symptoms and signs [facility] Main / R68.89(ICD-10) [place] Repository PROCEDURES PROCEDURES No Procedure Records FoundRESULTS RESULTS CNPN Observed: 06/04/2018 Status: COMPLETED Source: [place] 12:00 AM CLINIC OTHER CAMPUS REPOSITORY Telephone ([facility]) CARISSA YIP ([id number]) 1940 M Date Time Provider Department 06/04/18 MARK MARRERO During your visit today, we recorded the following information about you: Kerri Caputo 06/04/2018 9:52 AM Signed Pt takes a 81 mg aspirin Daily, does he need to stop for this procedure? Please advise - Kerri Marrero DO, MBA 06/04/2018 10:44 AM Signed Please stop for 5 days before and after Allergies As of Date: 06/04/2018 Noted Allergy Reaction INDOCIN (INDOMETHACIN SODIUM) 04/01/2011 14 - Other: See Comments Comments: Wheezing, can take naprosyn PERCOCET (OXYCODONE-ACETAMINOPHEN)01/08/2005 9 - Itching SEASONAL ALLERGIES 11/12/2012 14 - Other: See Comments Comments: Cat, Goats, Dust mites, molds, trees, grasses, weed, ragweed Date Reviewed: 06/02/2018 Reviewed by: Mark Marrero - Fully Assessed Reason for Visit: Surgery Question [Other] Prescriptions as of 06/04/2018 Sig: LISINOPRIL 20 MG TABLET Take 1 tablet by mouth once d* FLUTICASONE 50 MCG/ACTUATION * instill 2 sprays into each no* AZELASTINE 137 MCG (0.1 %) NA* instill 2 sprays into each no* MONTELUKAST 10 MG TABLET Take 1 tablet by mouth daily * OMEPRAZOLE 20 MG CAPSULE,ALEX* Take 1 capsule by mouth daily* ATORVASTATIN 10 MG TABLET Take 1 tablet by mouth daily * AZITHROMYCIN 250 MG TABLET TAKE 2 TABS ON THE FIRST DAY,* NYSTATIN 100,000 UNIT/ML ORAL* Swish and swallow 5 ml four t* ALBUTEROL SULFATE HFA 90 MCG/* Inhale 2 Puffs as instructed * FUROSEMIDE 20 MG TABLET Take 1 tablet by mouth once d* SPIRIVA WITH HANDIHALER 18 MC* inhale the contents of one ca* NYSTATIN-TRIAMCINOLONE 100,00* Apply 1 application to affect* GUAIFENESIN ER 600 MG TABLET,* Take 1 tablet by mouth twice * ASPIRIN 81 MG TABLET,DELAYED * Take 81 mg by mouth once christiano* ALBUTEROL SULFATE 2.5 MG/3 ML* Use 3 mL via nebulizer every * SERTRALINE 100 MG TABLET Take 1.5 tablets by mouth onc* NITROGLYCERIN 0.4 MG SUBLINGU* Dissolve 1 tablet under the t* ADVAIR HFA 230 MCG-21 MCG/ACT* take 2 inhalations by mouth t* LEFLUNOMIDE 10 MG TABLET Take 10 mg by mouth once christiano* VENTOLIN HFA 90 MCG/ACTUATION* inhale 2 puffs every 4 hours * IPRATROPIUM-ALBUTEROL 0.5 MG-* Inhale 3 mL as instructed fou* EPINEPHRINE 0.3 MG/0.3 ML INJ* Inject 0.3 mL intramuscularly* ALBUTEROL SULFATE HFA 90 MCG/* Inhale 2 Puffs as instructed. POLYETHYLENE GLYCOL 3350 17 G* Take 17 g by mouth once daily* IPRATROPIUM BROMIDE 0.02 % SO* 500 mcg (one ampule) nebulize* PRESERVISION AREDS 7,160 UNIT* Take one(1) tablet two(2) link* Problem List As Of Date 06/04/2018 Noted Resolved Asthma [J45.909] 08/25/2017 CHRONIC RHINITIS [J31.0] BPH without obstruction/lower urinary tract sym* ANXIETY STATE NOS [F41.1] 08/05/2014 Depression with anxiety [F41.8] Diverticulosis of colon (without mention of hem* 10/06/2012 ESOPHAGEAL REFLUX [K21.9] Internal hemorrhoids without mention of complic* 08/30/2010 Malignant neoplasm of prostate (HCC) [C61] INVALID FOR*08/05/2014 MACULAR DEGENERATION NOS [H35.30] Other specified iron deficiency anemias [D50.8] INVALID FOR*08/30/2010 Diabetes mellitus type 2, controlled, without c*INVALID FOR* Hyperlipidemia [E78.5] INVALID FOR* Personal history of colonic polyps [Z86.010] INVALID FOR*09/30/2011 More... FAMILY HX COLON CANCER [Z80.0] INVALID FOR*08/25/2017 PULMONARY NODULES [J98.4] INVALID FOR*10/06/2012 More... 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] INVALID FOR* Essential hypertension [I10] INVALID FOR* Generalized osteoarthritis of multiple sites [M*INVALID FOR* Benign neoplasm of rectum and anal canal [D12.8*INVALID FOR*10/06/2012 Benign neoplasm of colon [D12.6] INVALID FOR* Gout [M10.9] INVALID FOR* Venous insufficiency of leg [I87.2] INVALID FOR* Iron deficiency anemia due to chronic blood los*INVALID FOR* Inflammatory polyarthropathy of multiple sites *INVALID FOR* Unsteady gait [R26.81] INVALID FOR* Uncomplicated severe persistent asthma [J45.50] INVALID FOR* Other pulmonary embolism without acute cor pulm*INVALID FOR*12/29/2017 Pulmonary hypertension (HCC) [I27.20] INVALID FOR* Memory disturbance [R41.3] INVALID FOR* Obesity, Class I, BMI 30-34.9 E66.9 [E66.9] INVALID FOR* Open wound of left lower extremity [S81.802A] INVALID FOR* 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 Benign enlargement of prostate [N40.0] INVALID FOR* More... Encounter Status:Closed by KERRI CAPUTO on 06/04/18 PROGRESS Observed: 06/03/2018 Status: COMPLETED Source: [place] 3:05 PM CLINIC OTHER CAMPUS REPOSITORY HNO ID: [id number] Author: Kerri Caputo Service: (none) Author Type: (none) Type: Progress Notes Filed: 06/03/2018 3:06 PM Note Text: Spoke with pts - Pt is scheduled @ [facility] 07/09/2018 - they understand surgery information/date/time/location - New Booklet Mailed - Kerri OBSOLETE Observed: 06/03/2018 Status: COMPLETED Source: [place] 12:00 AM [facility] REPOSITORY Refill (INTMWS) CARISSA YIP ([id number]) 1940 M Date Time Provider Department 06/03/18 LAMBERT LARIOS INTMWS During your visit today, we recorded the following information about you: Caterina Agustín Psr 06/03/2018 10:39 AM Signed Patient has been identified by name and date of : Yes Pending Prescriptions Disp Refills LISINOPRIL 20 MG TABLET 90 tablet 3 Sig: Take 1 tablet by mouth once daily. TYRELL: No RX INSTRUCTIONS: Patient aware RX escripted to mail away pharmacy. No need to notify patient. Caterina Randolph Psr Kait Huye Romeromickieshon Senior Structural Engineer 06/03/2018 10:42 AM Signed This was sent to his mail order on 05/25/2018. Refill not needed. Allergies As of Date: 06/03/2018 Noted Allergy Reaction INDOCIN (INDOMETHACIN SODIUM) 04/01/2011 14 - Other: See Comments Comments: Wheezing, can take naprosyn PERCOCET (OXYCODONE-ACETAMINOPHEN)01/08/2005 9 - Itching SEASONAL ALLERGIES 11/12/2012 14 - Other: See Comments Comments: Cat, Goats, Dust mites, molds, trees, grasses, weed, ragweed Date Reviewed: 06/02/2018 Reviewed by: Mark Marrero - Fully Assessed Reason for Visit: Refill Request [94] Visit Diagnosis:Essential hypertension [I10] Prescriptions as of 06/03/2018 Sig: FLUTICASONE 50 MCG/ACTUATION * instill 2 sprays into each no* AZELASTINE 137 MCG (0.1 %) NA* instill 2 sprays into each no* LISINOPRIL 20 MG TABLET Take 1 tablet by mouth once d* MONTELUKAST 10 MG TABLET Take 1 tablet by mouth daily * OMEPRAZOLE 20 MG CAPSULE,ALEX* Take 1 capsule by mouth daily* ATORVASTATIN 10 MG TABLET Take 1 tablet by mouth daily * AZITHROMYCIN 250 MG TABLET TAKE 2 TABS ON THE FIRST DAY,* NYSTATIN 100,000 UNIT/ML ORAL* Swish and swallow 5 ml four t* ALBUTEROL SULFATE HFA 90 MCG/* Inhale 2 Puffs as instructed * FUROSEMIDE 20 MG TABLET Take 1 tablet by mouth once d* SPIRIVA WITH HANDIHALER 18 MC* inhale the contents of one ca* NYSTATIN-TRIAMCINOLONE 100,00* Apply 1 application to affect* GUAIFENESIN ER 600 MG TABLET,* Take 1 tablet by mouth twice * ASPIRIN 81 MG TABLET,DELAYED * Take 81 mg by mouth once christiano* ALBUTEROL SULFATE 2.5 MG/3 ML* Use 3 mL via nebulizer every * SERTRALINE 100 MG TABLET Take 1.5 tablets by mouth onc* NITROGLYCERIN 0.4 MG SUBLINGU* Dissolve 1 tablet under the t* ADVAIR HFA 230 MCG-21 MCG/ACT* take 2 inhalations by mouth t* LEFLUNOMIDE 10 MG TABLET Take 10 mg by mouth once christiano* VENTOLIN HFA 90 MCG/ACTUATION* inhale 2 puffs every 4 hours * IPRATROPIUM-ALBUTEROL 0.5 MG-* Inhale 3 mL as instructed fou* EPINEPHRINE 0.3 MG/0.3 ML INJ* Inject 0.3 mL intramuscularly* ALBUTEROL SULFATE HFA 90 MCG/* Inhale 2 Puffs as instructed. POLYETHYLENE GLYCOL 3350 17 G* Take 17 g by mouth once daily* IPRATROPIUM BROMIDE 0.02 % SO* 500 mcg (one ampule) nebulize* PRESERVISION AREDS 7,160 UNIT* Take one(1) tablet two(2) link* Problem List As Of Date 06/03/2018 Noted Resolved Asthma [J45.909] 08/25/2017 CHRONIC RHINITIS [J31.0] BPH without obstruction/lower urinary tract sym* ANXIETY STATE NOS [F41.1] 08/05/2014 Depression with anxiety [F41.8] Diverticulosis of colon (without mention of hem* 10/06/2012 ESOPHAGEAL REFLUX [K21.9] Internal hemorrhoids without mention of complic* 08/30/2010 Malignant neoplasm of prostate (HCC) [C61] INVALID FOR*08/05/2014 MACULAR DEGENERATION NOS [H35.30] Other specified iron deficiency anemias [D50.8] INVALID FOR*08/30/2010 Diabetes mellitus type 2, controlled, without c*INVALID FOR* Hyperlipidemia [E78.5] INVALID FOR* Personal history of colonic polyps [Z86.010] INVALID FOR*09/30/2011 More... FAMILY HX COLON CANCER [Z80.0] INVALID FOR*08/25/2017 PULMONARY NODULES [J98.4] INVALID FOR*10/06/2012 More... 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] INVALID FOR* Essential hypertension [I10] INVALID FOR* Generalized osteoarthritis of multiple sites [M*INVALID FOR* Benign neoplasm of rectum and anal canal [D12.8*INVALID FOR*10/06/2012 Benign neoplasm of colon [D12.6] INVALID FOR* Gout [M10.9] INVALID FOR* Venous insufficiency of leg [I87.2] INVALID FOR* Iron deficiency anemia due to chronic blood los*INVALID FOR* Inflammatory polyarthropathy of multiple sites *INVALID FOR* Unsteady gait [R26.81] INVALID FOR* Uncomplicated severe persistent asthma [J45.50] INVALID FOR* Other pulmonary embolism without acute cor pulm*INVALID FOR*12/29/2017 Pulmonary hypertension (HCC) [I27.20] INVALID FOR* Memory disturbance [R41.3] INVALID FOR* Obesity, Class I, BMI 30-34.9 E66.9 [E66.9] INVALID FOR* Open wound of left lower extremity [S81.802A] INVALID FOR* 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 [facility] [place] [facility] LOCATION: [address] [place] [address] NEW PATIENT HISTORY AND PHYSICAL EXAM PATIENT INFO: Carissa Yip 77 year old REFERRING M.D.: Lambert Larios PCP: Lambert Larios MD Consultation requested by Lambert Larios MD and my final recommendations will be communicated back to the requesting physician by way of shared medical record or letter via US mail. Chief Complaint: Penile lesion HPI 77 y/o male with history of prostate cancer s/p open radical prostatectomy in 2003. Most recent PSA 03/2012 undetectable. Patient is presenting after referral from PCP for penile lesion. He is uncircumcised and has had multiple bouts of balanitis. He first noticed the lesion ~1 month ago. 1-Duration: 2017 2-Location: Glans penis 3-Severity: N/A 4-Quality: Not applicable 5-Context: N/A 6-Timing: N/A 7-Modifying factors: medication steroids 8-Associated signs AND symptoms: no additional symptoms PATHOLOGY: N/A LAB: WBC (k/uL) Date Value 12/06/2017 6.10 RBC (m/uL) Date Value 12/06/2017 4.06 (L) Hemoglobin (g/dL) Date Value 12/06/2017 11.1 (L) Hematocrit (%) Date Value 12/06/2017 35.9 (L) MCV (fL) Date Value 12/06/2017 88.4 MCH (pG) Date Value 12/06/2017 27.3 MCHC (g/dL) Date Value 12/06/2017 30.9 RDW-CV (%) Date Value 12/06/2017 15.9 (H) Platelet Count (k/uL) Date Value 12/06/2017 207 MPV (fL) Date Value 12/06/2017 10.5 Neut% (%) Date Value 12/06/2017 72.5 Lymph% (%) Date Value 12/06/2017 13.0 Teller% (%) Date Value 12/06/2017 11.0 Eosin% (%) Date Value 12/06/2017 3.3 Baso% (%) Date Value 12/06/2017 0.2 Abs Neut (ANC) (k/uL) Date Value 12/06/2017 4.43 Abs Teller (k/uL) Date Value 12/06/2017 0.67 Abs Eosin (k/uL) Date Value 12/06/2017 0.20 Abs Baso (k/uL) Date Value 12/06/2017 <0.03 Creatinine Date Value Ref Range Status 03/25/2018 1.11 0.73 - 1.22 mg/dL Final 12/06/2017 1.10 0.73 - 1.22 mg/dL Final 07/21/2017 1.18 0.73 - 1.22 mg/dL Final 02/28/2017 1.30 (H) 0.73 - 1.22 mg/dL Final Creatinine, Whole Blood (iSTAT) Date Value Ref Range Status 08/25/2017 1.10 0.70 - 1.40 mg/dL Final PSA (ng/mL) Date Value 03/25/2012 <0.03 09/06/2002 4.60 pH, Urine Date Value Ref Range Status 11/06/2017 6.0 4.5 - 8.0 Final Specific [place], Ur Date Value Ref Range Status 11/06/2017 1.025 1.005 - 1.030 Final Glucose, Urine Date Value Ref Range Status 11/06/2017 neg Neg mg/dL Final Bilirubin, Urine Date Value Ref Range Status 11/06/2017 neg Neg Final Ketones, Urine Date Value Ref Range Status 11/06/2017 neg Neg Final Hemoglobin/Blood,Ur Date Value Ref Range Status 11/06/2017 non-trace hemo Neg Final Protein, Urine Date Value Ref Range Status 11/06/2017 neg Neg mg/dL Final Urobilinogen Date Value Ref Range Status 03/02/2004 0.2 0.0 - 1.0 EU/dL Final Nitrites Date Value Ref Range Status 11/06/2017 neg Neg Final Leukocytes Date Value Ref Range Status 11/06/2017 neg Neg Final IMAGING: None ALLERGIES: ALLERGIES Allergen Reactions - Indocin [Indomethac* Other: See Comments Wheezing, can take naprosyn - Percocet [Oxycodone* Itching - Seasonal Allergies Other: See Comments Cat, Goats, Dust mites, molds, trees, grasses, weed, ragweed MEDICATIONS: fluticasone (FLONASE) 50 mcg/actuation nasal spray instill 2 sprays into each nostril twice a day lisinopril (ZESTRIL, PRINIVIL) 20 mg tablet Take 1 tablet by mouth once daily. montelukast (SINGULAIR) 10 mg tablet Take 1 tablet by mouth daily at bedtime. omeprazole (PRILOSEC) 20 mg capsule Take 1 capsule by mouth daily before breakfast. 1/2 hr before meal. atorvastatin (LIPITOR) 10 mg tablet Take 1 tablet by mouth daily at bedtime. cephALEXin (KEFLEX) 500 mg capsule Take 1 capsule by mouth three times daily for 10 days. mupirocin (BACTROBAN) 2 % cream Apply 1 application to affected area three times daily for 10 days. Location: penis azithromycin (ZITHROMAX Z-DONNA) 250 mg tablet TAKE 2 TABS ON THE FIRST DAY, THEN ONE TAB DAILY FOR 4 DAYS. nystatin (MYCOSTATIN) 100,000 unit/mL suspension Swish and swallow 5 ml four times a day for thrush albuterol HFA (PROVENTIL HFA, VENTOLIN HFA) 90 mcg/actuation inhaler Inhale 2 Puffs as instructed every 4 hours as needed (for cough, wheezing, chest tightness or shortness of breath. Use with spacer. ). furosemide (LASIX) 20 mg tablet Take 1 tablet by mouth once daily. SPIRIVA WITH HANDIHALER 18 mcg inhalation capsule inhale the contents of one capsule in the handihaler once daily nystatin-triamcinolone (MYCOLOG II) cream Apply 1 application to affected area twice daily as needed. Genital rash. guaiFENesin (MUCINEX) 600 mg 12 hr tablet Take 1 tablet by mouth twice daily. aspirin, enteric coated (ASPIRIN, ENTERIC COATED) 81 mg EC tablet Take 81 mg by mouth once daily. azelastine (ASTELIN,ASTEPRO) 0.1% nasal spray instill 2 sprays into each nostril twice a day albuterol (PROVENTIL) 2.5 mg /3 mL (0.083 %) nebulizer solution Use 3 mL via nebulizer every 4 hours as needed. Diagnosis: severe persistent asthma J45.50 sertraline (ZOLOFT) 100 mg tablet Take 1.5 tablets by mouth once daily. nitroglycerin sublingual (NITROQUICK) 0.4 mg SL tablet Dissolve 1 tablet under the tongue every 5 minutes as needed for Chest Pain. ADVAIR HFA 230-21 mcg/actuation inhaler take 2 inhalations by mouth twice a day Rinse mouth after use leflunomide (ARAVA) 10 mg tablet Take 10 mg by mouth once daily. VENTOLIN HFA 90 mcg/actuation inhaler inhale 2 puffs every 4 hours if needed ipratropium-albuterol (DUONEB) 0.5 mg-3 mg(2.5 mg base)/3 mL nebu Inhale 3 mL as instructed four times daily as needed. by nebulizer over 5 to 15 minutes. EPINEPHrine (EPIPEN) 0.3 mg/0.3 mL auto-injector Inject 0.3 mL intramuscularly as needed. albuterol HFA (PROVENTIL HFA) 90 mcg/actuation inhaler Inhale 2 Puffs as instructed. polyethylene glycol 3350 (MIRALAX, GLYCOLAX) 17 gram/dose powder Take 17 g by mouth once daily. Take one (1) capful in 8oz of liquid each day. ipratropium (ATROVENT) 0.02 % nebulizer solution 500 mcg (one ampule) nebulized four times a day as needed. Vitamin A-Vit C-Vit E-Zinc-Cu (OCUVITE PRESERVISION) ORAL Tab Take one(1) tablet two(2) times daily. Does the patient take any herbal medications?: No Medication list reviewed and reconciled with patient: No HISTORIES PAST MEDICAL HISTORY Diagnosis Date - Anxiety state, unspecified - Benign neoplasm of colon - Chronic rhinitis - Colon polyp 10/2014 - Depressive disorder, not elsewhere classified - Diabetes mellitus type 2, controlled, without complications (HCC) 08/25/2017 - Diverticulosis of colon (without mention of hemorrhage) - Esophageal reflux - Family history of malignant neoplasm of gastrointestinal tract - GENERAL OSTEOARTHROSIS 04/08/2008 - Gout 04/01/2011 - HYPERGLYCEMIA 07/19/2005 - HYPERLIPIDEMIA NEC/NOS 07/19/2005 - HYPERTENSION NOS 09/03/2007 - Hypertrophy of prostate without urinary obstruction and other lower urinary tract symptoms (LUTS) - Impaired fasting blood sugar 07/19/2005 - Internal hemorrhoids without mention of complication - IRON DEFIC ANEMIA NEC 07/19/2005 - Macular degeneration (senile) of retina, unspecified - MALIGN NEOPL PROSTATE 05/23/2005 - Other pulmonary embolism without acute cor pulmonale 01/27/2017 - Personal history of colonic polyps - 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 - Unspecified asthma(493.90) PAST SURGICAL HISTORY Procedure Laterality Date - APPENDECTOMY 11-02-14 - COLONOS W/REM POLYP SNARE 07/25/05 - COLONOS W/REM POLYP SNARE 01/17/11 - COLONOSCOP W/ OR W/O BRSH SPEC 07/28/14 Colonoscopy - COLONOSCOP W/ OR W/O BRS SPEC 12-20-15 - COLONOSCOPY - DIAGNOSTIC 03/02/2003 - DEBRIDEMENT WOUND 21+ SQ CM Left 09/12/2017 Left leg abcess s/pt traumatic wound. - EGD W/O OR W/BRUSH/WASH 04/17/15 EGD - KNEE SCOPE,DIAGNOSTIC 1998 LEFT - LAP COLECTMY W/ILEUM/ILEOCOL 11-02-14 WITH INCISIONAL HERNIA REPAIR - LAPAROSCOPIC HEMICOLECTOMY 11-02-14 - REMV PROSTATE,PERINEAL,RADICAL 11/28/2003 - REPAIR ROTATOR CUFF,ACUTE 03/04/2002 Rotator cuff repair Left - REPAIR UMBILICAL BAKARI,5+Y/O,REDUC 03/01/1996 Hernia repair, umbilical >5yr - REVISE MEDIAN N/CARPAL TUNNEL SURG Bilateral 1993 Carpal tunnel decomp; , - TOTAL HIP REPLACEMENT 07/26/2013 Hip replacement, total, LEFT, Dr. Rojas - TOTAL KNEE REPLACEMENT 06/2008 left knee FAMILY HISTORY Problem Relation Age of Onset - Diabetes Father - Colon Cancer Father - Asthma Mother - Colon Cancer Sister - Diabetes Sister - Colon Cancer Other Negative family history: Yes SOCIAL HISTORY Social History Substance Use Topics - Smoking status: Never Smoker - Smokeless tobacco: Never Used Comment: Father smoked in childhood home. No household smoke exposure since. 05/2014. - Alcohol use No Smoking Status Reviewed: Yes TIMES IN THE PAST MONTH YOU HAD A FEELING OF NOT EMPTYING BLADDER? 5 TIMES IN PAST MONTH NEED TO URINATE AGAIN WITHIN 2 HRS OF LAST EMPTY? 2 TIMES IN PAST MONTH YOU HAVE STOPPED AND STARTED URINE FLOW? 2 TIMES IN THE PAST MONTH YOU FOUND IT DIFFICULT TO POSTPONE URINATING? 5 TIMES IN THE PAST MONTH YOU HAVE HAD A WEAK URINARY STREAM? 3 TIMES IN PAST MONTH YOU HAVE HAD TO PUSH OR STRAIN TO URINATE? 2 TIMES IN PAST MONTH YOU GET UP TO URINATE FROM SLEEP UNTIL AWAKE? 1 HOW WOULD YOU FEEL IF YOU HAD TO LIVE WITH YOUR URINARY CONDITION IT IS NOW? 5 - Unhappy WHAT IT THE TOTAL AUA SCORE? 20 How do you rate your confidence that you could get and keep an erection? 1 - Very Low When you had erections with sexual stimuation, how often were your erections hard enough for penetration (entering your partner)? 1 - Almost Never or Never During sexual intercouse, how often were you able to maintain your erection after you had penetrated (entered) your partner? 1 - Almost Never Or Never During sexual intercourse, how difficult was it to maintain your erection to completion of intercourse? 1 - Extremely DIfficult When you attempted sexual intercourse, how often was it satisfactory for you? 1 - Almost Never Or Never Total Score 5 REVIEW OF SYSTEMS General:No weight loss, malaise or fevers., SEE HPI HEENT:Negative for frequent or significant headaches, No changes in hearing or vision, no nose bleeds or other nasal problems Neck:Negative for lumps, goiter, pain and significant neck swelling Respiratory: Negative for cough, wheezing or shortness of breath. Cardiovascular: Negative for chest pain, leg swelling or palpitations. Gastrointestinal: Negative for abdominal discomfort, blood in stools or black stools or change in bowel habits Genitourinary: No history of dysuria, frequency or incontinence Musculoskeletal: Negative for joint pain or swelling, back pain or muscle pain. Skin:Negative for lesions, rash, and itching. Psychologic: No dissatisfaction with life, depression or suicidal thoughts The remainder of the ROS was negative. PHYSICAL EXAMINATION Ht 165.1 cm (5' 5) Wt 93 kg (205 lb) BMI 34.11 kg/m? General appearance: Well appearing, alert, in no acute distress and well-hydrated, well nourished Skin: Skin color, texture, turgor normal, no suspicious rashes or lesions Head: Normocephalic, no masses, lesions, tenderness or abnormalities Neck: Supple, no adenopathy; thyroid symmetric, normal size, no bruits Lungs: Clear to auscultation no wheezing or rhonchi Heart: RRR without murmur, gallop, or rubs. No ectopy Abdomen: Normal abdominal exam, Abdomen soft, non-tender. Bowel sounds normal. No masses, organomegaly Extremities: Extremities normal. No deformities, edema, or skin discoloration. Good capillary refill. Genitourinary: Uncircumcised male, white plaque with surrounding erythema on right glans penis near meatus, tiny area of ulceration on coronal sulcus near midline. bilateral descended testis, nttp. No palpable lymphadenopathy PVR: NA IMPRESSION/PLAN: 77 y/o uncircumcised male with 2 penile lesions - Will schedule for OR biopsy with frozen section at [facility] - Likely circumcision at same time - No palpable lymphadenopathy Rodolfo Nguyen Urology PGY-2 Attending Note I evaluated the patient and personally participated in the ratliff components. I agree with the resident's findings and plan as documented and have discussed the case and management of the patient's care with the resident. Lesion examined, will need biopsy/excision for BXO/LS May need circumcision with flap coverage over area of excision Signature: Mark Marrero DO, MBA Date: 06/02/2018 Time: 10:25 AM Letter to: Lambert Larios MD CNOV Observed: 05/27/2018 Status: COMPLETED Source: [place] 1:45 PM [facility] OTHER CAMPUS REPOSITORY Office Visit (AKURFL) CARISSA YIP ([id number]) 1940 M Date Time Provider Department 05/27/18 1:45 PM MARK MARRERO During your visit today, we recorded the following information about you: Weight Height 93 kg 1.651 m Mark Marrero DO, MBA 06/02/2018 10:28 AM Signed ?? [facility] [place] [facility] LOCATION: [address] [place] [address] NEW PATIENT HISTORY AND PHYSICAL EXAM PATIENT INFO: Carissa Yip 77 year old REFERRING M.D.: Lambret Larios PCP: Lambert Larios MD Consultation requested by Lambert Larios MD and my final recommendations will be communicated back to the requesting physician by way of shared medical record or letter via US mail. Chief Complaint: Penile lesion HPI 77 y/o male with history of prostate cancer s/p open radical prostatectomy in 2003. Most recent PSA 03/2012 undetectable. Patient is presenting after referral from PCP for penile lesion. He is uncircumcised and has had multiple bouts of balanitis. He first noticed the lesion ~1 month ago. 1-Duration: 2017 2-Location: Glans penis 3-Severity: N/A 4-Quality: Not applicable 5-Context: N/A 6-Timing: N/A 7-Modifying factors: medication steroids 8-Associated signs AND symptoms: no additional symptoms PATHOLOGY: N/A LAB: WBC (k/uL) Date Value 12/06/2017 6.10 RBC (m/uL) Date Value 12/06/2017 4.06 (L) Hemoglobin (g/dL) Date Value 12/06/2017 11.1 (L) Hematocrit (%) Date Value 12/06/2017 35.9 (L) MCV (fL) Date Value 12/06/2017 88.4 MCH (pG) Date Value 12/06/2017 27.3 MCHC (g/dL) Date Value 12/06/2017 30.9 RDW-CV (%) Date Value 12/06/2017 15.9 (H) Platelet Count (k/uL) Date Value 12/06/2017 207 MPV (fL) Date Value 12/06/2017 10.5 Neut% (%) Date Value 12/06/2017 72.5 Lymph% (%) Date Value 12/06/2017 13.0 Teller% (%) Date Value 12/06/2017 11.0 Eosin% (%) Date Value 12/06/2017 3.3 Baso% (%) Date Value 12/06/2017 0.2 Abs Neut (ANC) (k/uL) Date Value 12/06/2017 4.43 Abs Teller (k/uL) Date Value 12/06/2017 0.67 Abs Eosin (k/uL) Date Value 12/06/2017 0.20 Abs Baso (k/uL) Date Value 12/06/2017 <0.03 Creatinine Date Value Ref Range Status 03/25/2018 1.11 0.73 - 1.22 mg/dL Final 12/06/2017 1.10 0.73 - 1.22 mg/dL Final 07/21/2017 1.18 0.73 - 1.22 mg/dL Final 02/28/2017 1.30 (H) 0.73 - 1.22 mg/dL Final Creatinine, Whole Blood (iSTAT) Date Value Ref Range Status 08/25/2017 1.10 0.70 - 1.40 mg/dL Final PSA (ng/mL) Date Value 03/25/2012 <0.03 09/06/2002 4.60 pH, Urine Date Value Ref Range Status 11/06/2017 6.0 4.5 - 8.0 Final Specific [place], Ur Date Value Ref Range Status 11/06/2017 1.025 1.005 - 1.030 Final Glucose, Urine Date Value Ref Range Status 11/06/2017 neg Neg mg/dL Final Bilirubin, Urine Date Value Ref Range Status 11/06/2017 neg Neg Final Ketones, Urine Date Value Ref Range Status 11/06/2017 neg Neg Final Hemoglobin/Blood,Ur Date Value Ref Range Status 11/06/2017 non-trace hemo Neg Final Protein, Urine Date Value Ref Range Status 11/06/2017 neg Neg mg/dL Final Urobilinogen Date Value Ref Range Status 03/02/2004 0.2 0.0 - 1.0 EU/dL Final Nitrites Date Value Ref Range Status 11/06/2017 neg Neg Final Leukocytes Date Value Ref Range Status 11/06/2017 neg Neg Final IMAGING: None ALLERGIES: ALLERGIES Allergen Reactions - Indocin [Indomethac* Other: See Comments Wheezing, can take naprosyn - Percocet [Oxycodone* Itching - Seasonal Allergies Other: See Comments Cat, Goats, Dust mites, molds, trees, grasses, weed, ragweed MEDICATIONS: fluticasone (FLONASE) 50 mcg/actuation nasal spray instill 2 sprays into each nostril twice a day lisinopril (ZESTRIL, PRINIVIL) 20 mg tablet Take 1 tablet by mouth once daily. montelukast (SINGULAIR) 10 mg tablet Take 1 tablet by mouth daily at bedtime. omeprazole (PRILOSEC) 20 mg capsule Take 1 capsule by mouth daily before breakfast. 1/2 hr before meal. atorvastatin (LIPITOR) 10 mg tablet Take 1 tablet by mouth daily at bedtime. cephALEXin (KEFLEX) 500 mg capsule Take 1 capsule by mouth three times daily for 10 days. mupirocin (BACTROBAN) 2 % cream Apply 1 application to affected area three times daily for 10 days. Location: penis azithromycin (ZITHROMAX Z-DONNA) 250 mg tablet TAKE 2 TABS ON THE FIRST DAY, THEN ONE TAB DAILY FOR 4 DAYS. nystatin (MYCOSTATIN) 100,000 unit/mL suspension Swish and swallow 5 ml four times a day for thrush albuterol HFA (PROVENTIL HFA, VENTOLIN HFA) 90 mcg/actuation inhaler Inhale 2 Puffs as instructed every 4 hours as needed (for cough, wheezing, chest tightness or shortness of breath. Use with spacer. ). furosemide (LASIX) 20 mg tablet Take 1 tablet by mouth once daily. SPIRIVA WITH HANDIHALER 18 mcg inhalation capsule inhale the contents of one capsule in the handihaler once daily nystatin-triamcinolone (MYCOLOG II) cream Apply 1 application to affected area twice daily as needed. Genital rash. guaiFENesin (MUCINEX) 600 mg 12 hr tablet Take 1 tablet by mouth twice daily. aspirin, enteric coated (ASPIRIN, ENTERIC COATED) 81 mg EC tablet Take 81 mg by mouth once daily. azelastine (ASTELIN,ASTEPRO) 0.1% nasal spray instill 2 sprays into each nostril twice a day albuterol (PROVENTIL) 2.5 mg /3 mL (0.083 %) nebulizer solution Use 3 mL via nebulizer every 4 hours as needed. Diagnosis: severe persistent asthma J45.50 sertraline (ZOLOFT) 100 mg tablet Take 1.5 tablets by mouth once daily. nitroglycerin sublingual (NITROQUICK) 0.4 mg SL tablet Dissolve 1 tablet under the tongue every 5 minutes as needed for Chest Pain. ADVAIR HFA 230-21 mcg/actuation inhaler take 2 inhalations by mouth twice a day Rinse mouth after use leflunomide (ARAVA) 10 mg tablet Take 10 mg by mouth once daily. VENTOLIN HFA 90 mcg/actuation inhaler inhale 2 puffs every 4 hours if needed ipratropium-albuterol (DUONEB) 0.5 mg-3 mg(2.5 mg base)/3 mL nebu Inhale 3 mL as instructed four times daily as needed. by nebulizer over 5 to 15 minutes. EPINEPHrine (EPIPEN) 0.3 mg/0.3 mL auto-injector Inject 0.3 mL intramuscularly as needed. albuterol HFA (PROVENTIL HFA) 90 mcg/actuation inhaler Inhale 2 Puffs as instructed. polyethylene glycol 3350 (MIRALAX, GLYCOLAX) 17 gram/dose powder Take 17 g by mouth once daily. Take one (1) capful in 8oz of liquid each day. ipratropium (ATROVENT) 0.02 % nebulizer solution 500 mcg (one ampule) nebulized four times a day as needed. Vitamin A-Vit C-Vit E-Zinc-Cu (OCUVITE PRESERVISION) ORAL Tab Take one(1) tablet two(2) times daily. Does the patient take any herbal medications?: No Medication list reviewed and reconciled with patient: No HISTORIES PAST MEDICAL HISTORY Diagnosis Date - Anxiety state, unspecified - Benign neoplasm of colon - Chronic rhinitis - Colon polyp 10/2014 - Depressive disorder, not elsewhere classified - Diabetes mellitus type 2, controlled, without complications (HCC) 08/25/2017 - Diverticulosis of colon (without mention of hemorrhage) - Esophageal reflux - Family history of malignant neoplasm of gastrointestinal tract - GENERAL OSTEOARTHROSIS 04/08/2008 - Gout 04/01/2011 - HYPERGLYCEMIA 07/19/2005 - HYPERLIPIDEMIA NEC/NOS 07/19/2005 - HYPERTENSION NOS 09/03/2007 - Hypertrophy of prostate without urinary obstruction and other lower urinary tract symptoms (LUTS) - Impaired fasting blood sugar 07/19/2005 - Internal hemorrhoids without mention of complication - IRON DEFIC ANEMIA NEC 07/19/2005 - Macular degeneration (senile) of retina, unspecified - MALIGN NEOPL PROSTATE 05/23/2005 - Other pulmonary embolism without acute cor pulmonale 01/27/2017 - Personal history of colonic polyps - 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 - Unspecified asthma(493.90) PAST SURGICAL HISTORY Procedure Laterality Date - APPENDECTOMY 11-02-14 - COLONOS W/REM POLYP SNARE 07/25/05 - COLONOS W/REM POLYP SNARE 01/17/11 - COLONOSCOP W/ OR W/O BRSH SPEC 07/28/14 Colonoscopy - COLONOSCOP W/ OR W/O [facility] SPEC 12-20-15 - COLONOSCOPY - DIAGNOSTIC 03/02/2003 - DEBRIDEMENT WOUND 21+ SQ CM Left 09/12/2017 Left leg abcess s/pt traumatic wound. - EGD W/O OR W/BRUSH/WASH 04/17/15 EGD - KNEE SCOPE,DIAGNOSTIC 1998 LEFT - LAP COLECTMY W/ILEUM/ILEOCOL 11-02-14 WITH INCISIONAL HERNIA REPAIR - LAPAROSCOPIC HEMICOLECTOMY 11-02-14 - REMV PROSTATE,PERINEAL,RADICAL 11/28/2003 - REPAIR ROTATOR CUFF,ACUTE 03/04/2002 Rotator cuff repair Left - REPAIR UMBILICAL BAKARI,5+Y/O,REDUC 03/01/1996 Hernia repair, umbilical >5yr - REVISE MEDIAN N/CARPAL TUNNEL SURG Bilateral 1993 Carpal tunnel decomp; , - TOTAL HIP REPLACEMENT 07/26/2013 Hip replacement, total, LEFT, Dr. Rojas - TOTAL KNEE REPLACEMENT 06/2008 left knee FAMILY HISTORY Problem Relation Age of Onset - Diabetes Father - Colon Cancer Father - Asthma Mother - Colon Cancer Sister - Diabetes Sister - Colon Cancer Other Negative family history: Yes SOCIAL HISTORY Social History Substance Use Topics - Smoking status: Never Smoker - Smokeless tobacco: Never Used Comment: Father smoked in childhood home. No household smoke exposure since. 05/2014. - Alcohol use No Smoking Status Reviewed: Yes TIMES IN THE PAST MONTH YOU HAD A FEELING OF NOT EMPTYING BLADDER? 5 TIMES IN PAST MONTH NEED TO URINATE AGAIN WITHIN 2 HRS OF LAST EMPTY? 2 TIMES IN PAST MONTH YOU HAVE STOPPED AND STARTED URINE FLOW? 2 TIMES IN THE PAST MONTH YOU FOUND IT DIFFICULT TO POSTPONE URINATING? 5 TIMES IN THE PAST MONTH YOU HAVE HAD A WEAK URINARY STREAM? 3 TIMES IN PAST MONTH YOU HAVE HAD TO PUSH OR STRAIN TO URINATE? 2 TIMES IN PAST MONTH YOU GET UP TO URINATE FROM SLEEP UNTIL AWAKE? 1 HOW WOULD YOU FEEL IF YOU HAD TO LIVE WITH YOUR URINARY CONDITION IT IS NOW? 5 - Unhappy WHAT IT THE TOTAL AUA SCORE? 20 How do you rate your confidence that you could get and keep an erection? 1 - Very Low When you had erections with sexual stimuation, how often were your erections hard enough for penetration (entering your partner)? 1 - Almost Never or Never During sexual intercouse, how often were you able to maintain your erection after you had penetrated (entered) your partner? 1 - Almost Never Or Never During sexual intercourse, how difficult was it to maintain your erection to completion of intercourse? 1 - Extremely DIfficult When you attempted sexual intercourse, how often was it satisfactory for you? 1 - Almost Never Or Never Total Score 5 REVIEW OF SYSTEMS General:No weight loss, malaise or fevers., SEE HPI HEENT:Negative for frequent or significant headaches, No changes in hearing or vision, no nose bleeds or other nasal problems Neck:Negative for lumps, goiter, pain and significant neck swelling Respiratory: Negative for cough, wheezing or shortness of breath. Cardiovascular: Negative for chest pain, leg swelling or palpitations. Gastrointestinal: Negative for abdominal discomfort, blood in stools or black stools or change in bowel habits Genitourinary: No history of dysuria, frequency or incontinence Musculoskeletal: Negative for joint pain or swelling, back pain or muscle pain. Skin:Negative for lesions, rash, and itching. Psychologic: No dissatisfaction with life, depression or suicidal thoughts The remainder of the ROS was negative. PHYSICAL EXAMINATION Ht 165.1 cm (5' 5) Wt 93 kg (205 lb) BMI 34.11 kg/m? General appearance: Well appearing, alert, in no acute distress and well-hydrated, well nourished Skin: Skin color, texture, turgor normal, no suspicious rashes or lesions Head: Normocephalic, no masses, lesions, tenderness or abnormalities Neck: Supple, no adenopathy; thyroid symmetric, normal size, no bruits Lungs: Clear to auscultation no wheezing or rhonchi Heart: RRR without murmur, gallop, or rubs. No ectopy Abdomen: Normal abdominal exam, Abdomen soft, non-tender. Bowel sounds normal. No masses, organomegaly Extremities: Extremities normal. No deformities, edema, or skin discoloration. Good capillary refill. Genitourinary: Uncircumcised male, white plaque with surrounding erythema on right glans penis near meatus, tiny area of ulceration on coronal sulcus near midline. bilateral descended testis, nttp. No palpable lymphadenopathy PVR: NA IMPRESSION/PLAN: 77 y/o uncircumcised male with 2 penile lesions - Will schedule for OR biopsy with frozen section at [facility] - Likely circumcision at same time - No palpable lymphadenopathy Rodolfo Nguyen Urology PGY-2 Attending Note I evaluated the patient and personally participated in the ratliff components. I agree with the resident's findings and plan as documented and have discussed the case and management of the patient's care with the resident. Lesion examined, will need biopsy/excision for BXO/LS May need circumcision with flap coverage over area of excision Signature: Mark Marrero DO, MBA Date: 06/02/2018 Time: 10:25 AM Letter to: Lambert Larios MD Referring Provider: LAMBERT LARIOS [[id number]] Allergies As of Date: 05/27/2018 Noted Allergy Reaction INDOCIN (INDOMETHACIN SODIUM) 04/01/2011 14 - Other: See Comments Comments: Wheezing, can take naprosyn PERCOCET (OXYCODONE-ACETAMINOPHEN)01/08/2005 9 - Itching SEASONAL ALLERGIES 11/12/2012 14 - Other: See Comments Comments: Cat, Goats, Dust mites, molds, trees, grasses, weed, ragweed Date Reviewed: 05/27/2018 Reviewed by: Francia Morales ANNUAL GIVING MANAGER - Fully Assessed Reason for Visit: Penile Problem [357] Primary Visit Diagnosis:Penile lesion [N48.9] Other Visit Diagnosis:BPH without obstruction/lower urinary tract symptoms [N40.0] Prescriptions as of 05/27/2018 Sig: LISINOPRIL 20 MG TABLET Take 1 tablet by mouth once d* MONTELUKAST 10 MG TABLET Take 1 tablet by mouth daily * OMEPRAZOLE 20 MG CAPSULE,ALEX* Take 1 capsule by mouth daily* ATORVASTATIN 10 MG TABLET Take 1 tablet by mouth daily * X FLUTICASONE 50 MCG/ACTUATION * instill 2 sprays into each no* CEPHALEXIN 500 MG CAPSULE Take 1 capsule by mouth three* MUPIROCIN 2 % TOPICAL CREAM Apply 1 application to affect* AZITHROMYCIN 250 MG TABLET TAKE 2 TABS ON THE FIRST DAY,* NYSTATIN 100,000 UNIT/ML ORAL* Swish and swallow 5 ml four t* ALBUTEROL SULFATE HFA 90 MCG/* Inhale 2 Puffs as instructed * FUROSEMIDE 20 MG TABLET Take 1 tablet by mouth once d* SPIRIVA WITH HANDIHALER 18 MC* inhale the contents of one ca* NYSTATIN-TRIAMCINOLONE 100,00* Apply 1 application to affect* GUAIFENESIN ER 600 MG TABLET,* Take 1 tablet by mouth twice * ASPIRIN 81 MG TABLET,DELAYED * Take 81 mg by mouth once christiano* X AZELASTINE 137 MCG (0.1 %) NA* instill 2 sprays into each no* ALBUTEROL SULFATE 2.5 MG/3 ML* Use 3 mL via nebulizer every * SERTRALINE 100 MG TABLET Take 1.5 tablets by mouth onc* NITROGLYCERIN 0.4 MG SUBLINGU* Dissolve 1 tablet under the t* ADVAIR HFA 230 MCG-21 MCG/ACT* take 2 inhalations by mouth t* LEFLUNOMIDE 10 MG TABLET Take 10 mg by mouth once christiano* VENTOLIN HFA 90 MCG/ACTUATION* inhale 2 puffs every 4 hours * IPRATROPIUM-ALBUTEROL 0.5 MG-* Inhale 3 mL as instructed fou* EPINEPHRINE 0.3 MG/0.3 ML INJ* Inject 0.3 mL intramuscularly* ALBUTEROL SULFATE HFA 90 MCG/* Inhale 2 Puffs as instructed. POLYETHYLENE GLYCOL 3350 17 G* Take 17 g by mouth once daily* IPRATROPIUM BROMIDE 0.02 % SO* 500 mcg (one ampule) nebulize* PRESERVISION AREDS 7,160 UNIT* Take one(1) tablet two(2) link* Problem List As Of Date 05/27/2018 Noted Resolved Asthma [J45.909] 08/25/2017 CHRONIC RHINITIS [J31.0] BPH without obstruction/lower urinary tract sym* ANXIETY STATE NOS [F41.1] 08/05/2014 Depression with anxiety [F41.8] Diverticulosis of colon (without mention of hem* 10/06/2012 ESOPHAGEAL REFLUX [K21.9] Internal hemorrhoids without mention of complic* 08/30/2010 Malignant neoplasm of prostate (HCC) [C61] INVALID FOR*08/05/2014 MACULAR DEGENERATION NOS [H35.30] Other specified iron deficiency anemias [D50.8] INVALID FOR*08/30/2010 Diabetes mellitus type 2, controlled, without c*INVALID FOR* Hyperlipidemia [E78.5] INVALID FOR* Personal history of colonic polyps [Z86.010] INVALID FOR*09/30/2011 More... FAMILY HX COLON CANCER [Z80.0] INVALID FOR*08/25/2017 PULMONARY NODULES [J98.4] INVALID FOR*10/06/2012 More... 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] INVALID FOR* Essential hypertension [I10] INVALID FOR* Generalized osteoarthritis of multiple sites [M*INVALID FOR* Benign neoplasm of rectum and anal canal [D12.8*INVALID FOR*10/06/2012 Benign neoplasm of colon [D12.6] INVALID FOR* Gout [M10.9] INVALID FOR* Venous insufficiency of leg [I87.2] INVALID FOR* Iron deficiency anemia due to chronic blood los*INVALID FOR* Inflammatory polyarthropathy of multiple sites *INVALID FOR* Unsteady gait [R26.81] INVALID FOR* Uncomplicated severe persistent asthma [J45.50] INVALID FOR* Other pulmonary embolism without acute cor pulm*INVALID FOR*12/29/2017 Pulmonary hypertension (HCC) [I27.20] INVALID FOR* Memory disturbance [R41.3] INVALID FOR* Obesity, Class I, BMI 30-34.9 E66.9 [E66.9] INVALID FOR* Open wound of left lower extremity [S81.802A] INVALID FOR* Prothrombin [id number] mutation (HCC) [D68.52] INVALID FOR*12/29/2017 Allergic rhinitis due to cats [J30.81] INVALID FOR* Allergic rhinitis due to dust mite [J30.89] INVALID FOR* Allergic rhinitis due to fungal spores [J30.89] INVALID FOR* Seasonal allergic rhinitis due to pollen [J30.1]INVALID FOR* Penile lesion [N48.9] INVALID FOR* Follow-up and Disposition History Recorded Questionnaire: AUA QUESTIONNAIRE TIMES IN THE PAST MONTH YOU HAD A FEELING OF NOT EMPTYING BLADDER? -> 5 TIMES IN PAST MONTH NEED TO URINATE AGAIN WITHIN 2 HRS OF LAST EMPTY? -> 2 TIMES IN PAST MONTH YOU HAVE STOPPED AND STARTED URINE FLOW? -> 2 TIMES IN THE PAST MONTH YOU FOUND IT DIFFICULT TO POSTPONE URINATING? -> 5 TIMES IN THE PAST MONTH YOU HAVE HAD A WEAK URINARY STREAM? -> 3 TIMES IN PAST MONTH YOU HAVE HAD TO PUSH OR STRAIN TO URINATE? -> 2 TIMES IN PAST MONTH YOU GET UP TO URINATE FROM SLEEP UNTIL AWAKE? -> 1 HOW WOULD YOU FEEL IF YOU HAD TO LIVE WITH YOUR URINARY CONDITION IT IS NOW? * WHAT IT THE TOTAL AUA SCORE? -> 20 Questionnaire: [facility] INVENTORY FOR MEN How do you rate your confidence that you could get and keep an erection? -> 1 - Very Low When you had erections with sexual stimuation, how often were your erections hard enough for penetration (entering your partner)? -> 1 - Almost Never or Never During sexual intercouse, how often were you able to maintain your erection after you had penetrated (entered) your partner? -> 1 - Almost Never Or Never During sexual intercourse, how difficult was it to maintain your erection to completion of intercourse? -> 1 - Extremely DIfficult When you attempted sexual intercourse, how often was it satisfactory for you? -> 1 - A- l- m- o- s- t N- e- v- e- r O- r N- e- v- er Total Score -> 5 Letter Text Encounter Status:Closed by MARK MARRERO on 06/02/18 PROGRESS Observed: 05/22/2018 Status: COMPLETED Source: [place] 12:11 PM [facility] REPOSITORY HNO ID: [id number] Author: Leni Mack Service: (none) Author Type: (none) Type: Progress Notes Filed: 05/22/2018 12:12 PM Note Text: May 22, 2018 12:12 PM Called and spoke to patient, he is scheduled for Friday05/27/18 in the [place] location, address given-JF Leni Mack PROGRESS Observed: 05/22/2018 Status: COMPLETED Source: [place] 11:05 AM [facility] REPOSITORY HNO ID: [id number] Author: Nithya Grande ([place]) Service: (none) Author Type: Physician Truck Repair Supervisor Type: Progress Notes Filed: 05/22/2018 4:58 PM Note Text: [facility] [place] PATIENT INFO: Carissa Yip 77 year old PCP: Lambert Larios MD Referred by: Lambert Larios MD Consult: A consultation was requested by Lambert Larios MD for an opinion regarding Penile Lesion My final recommendations communicated back to the requesting physician by way of shared Medical record. CHIEF COMPLAINT: Penile Lesion HPI: This is a 77 year old male, who has Penile Lesion , which started in 2018, and involves the Penis Patient states this moderate in severity and moderate in quality, and is happening daily Aggravating factors: uncircumcised and balanitis for 3 weeks treated with rx , Alleviating Factors: No . And the patient denies having Fever, Chills, Rigors, Nausea and Vomiting VOIDING SYMPTOMS: NTF: 2 Times DTF: Q 3 HOURS FOS: Poor Hesitancy: Yes Straining: Yes Intermittency: Yes Urgency: Yes Frequency: Yes Dysuria: Yes Gross Hematuria: No U/A Dipstick Positive Blood - Only No Incomplete Voiding: Yes Double Voiding: Yes Post Void Dribbling: Yes Incontinence: No ALLERGY: ALLERGIES Allergen Reactions - Indocin [Indomethac* Other: See Comments Wheezing, can take naprosyn - Percocet [Oxycodone* Itching - Seasonal Allergies Other: See Comments Cat, Goats, Dust mites, molds, trees, grasses, weed, ragweed MEDICATIONS: Current Outpatient Prescriptions: cephALEXin (KEFLEX) 500 mg capsule Take 1 capsule by mouth three times daily for 10 days. Disp: 30 capsule Rfl: 0 mupirocin (BACTROBAN) 2 % cream Apply 1 application to affected area three times daily for 10 days. Location: penis Disp: 22 g Rfl: 0 azithromycin (ZITHROMAX Z-DONNA) 250 mg tablet TAKE 2 TABS ON THE FIRST DAY, THEN ONE TAB DAILY FOR 4 DAYS. Disp: 1 Package Rfl: 0 nystatin (MYCOSTATIN) 100,000 unit/mL suspension Swish and swallow 5 ml four times a day for thrush Disp: 280 mL Rfl: 0 albuterol HFA (PROVENTIL HFA, VENTOLIN HFA) 90 mcg/actuation inhaler Inhale 2 Puffs as instructed every 4 hours as needed (for cough, wheezing, chest tightness or shortness of breath. Use with spacer. ). Disp: 1 Inhaler Rfl: 2 atorvastatin (LIPITOR) 10 mg tablet take 1 tablet by mouth at bedtime Disp: 90 tablet Rfl: 3 furosemide (LASIX) 20 mg tablet Take 1 tablet by mouth once daily. Disp: 30 tablet Rfl: 11 SPIRIVA WITH HANDIHALER 18 mcg inhalation capsule inhale the contents of one capsule in the handihaler once daily Disp: 90 capsule Rfl: 3 nystatin-triamcinolone (MYCOLOG II) cream Apply 1 application to affected area twice daily as needed. Genital rash. Disp: 1 Tube Rfl: 2 guaiFENesin (MUCINEX) 600 mg 12 hr tablet Take 1 tablet by mouth twice daily. Disp: 60 tablet Rfl: 3 aspirin, enteric coated (ASPIRIN, ENTERIC COATED) 81 mg EC tablet Take 81 mg by mouth once daily. Disp: Rfl: azelastine (ASTELIN,ASTEPRO) 0.1% nasal spray instill 2 sprays into each nostril twice a day Disp: 1 Bottle Rfl: 11 fluticasone (FLONASE) 50 mcg/actuation nasal spray instill 2 sprays into each nostril twice a day Disp: 1 Bottle Rfl: 11 albuterol (PROVENTIL) 2.5 mg /3 mL (0.083 %) nebulizer solution Use 3 mL via nebulizer every 4 hours as needed. Diagnosis: severe persistent asthma J45.50 Disp: 375 mL Rfl: 0 sertraline (ZOLOFT) 100 mg tablet Take 1.5 tablets by mouth once daily. Disp: 135 tablet Rfl: 3 montelukast (SINGULAIR) 10 mg tablet Take 1 tablet by mouth daily at bedtime. Disp: 90 tablet Rfl: 3 nitroglycerin sublingual (NITROQUICK) 0.4 mg SL tablet Dissolve 1 tablet under the tongue every 5 minutes as needed for Chest Pain. Disp: 1 Bottle of 25 Rfl: 0 ADVAIR HFA 230-21 mcg/actuation inhaler take 2 inhalations by mouth twice a day Rinse mouth after use Disp: 3 Inhaler Rfl: 3 omeprazole (PRILOSEC) 20 mg capsule Take 1 capsule by mouth daily before breakfast. 1/2 hr before meal. Disp: 90 capsule Rfl: 3 lisinopril (ZESTRIL, PRINIVIL) 20 mg tablet Take 1 tablet by mouth once daily. Disp: 90 tablet Rfl: 3 leflunomide (ARAVA) 10 mg tablet Take 10 mg by mouth once daily. Disp: Rfl: VENTOLIN HFA 90 mcg/actuation inhaler inhale 2 puffs every 4 hours if needed Disp: 1 Inhaler Rfl: 2 ipratropium-albuterol (DUONEB) 0.5 mg-3 mg(2.5 mg base)/3 mL nebu Inhale 3 mL as instructed four times daily as needed. by nebulizer over 5 to 15 minutes. Disp: 120 Vial Rfl: 3 EPINEPHrine (EPIPEN) 0.3 mg/0.3 mL auto-injector Inject 0.3 mL intramuscularly as needed. Disp: 1 Each Rfl: 1 albuterol HFA (PROVENTIL HFA) 90 mcg/actuation inhaler Inhale 2 Puffs as instructed. Disp: Rfl: polyethylene glycol 3350 (MIRALAX, GLYCOLAX) 17 gram/dose powder Take 17 g by mouth once daily. Take one (1) capful in 8oz of liquid each day. Disp: 527 g Rfl: 11 ipratropium (ATROVENT) 0.02 % nebulizer solution 500 mcg (one ampule) nebulized four times a day as needed. Disp: 120 Vial Rfl: 11 Vitamin A-Vit C-Vit E-Zinc-Cu (OCUVITE PRESERVISION) ORAL Tab Take one(1) tablet two(2) times daily. Disp: Rfl: 0 No current facility-administered medications for this visit. Past Medical History PAST MEDICAL HISTORY Diagnosis Date - Anxiety state, unspecified - Benign neoplasm of colon - Chronic rhinitis - Colon polyp 10/2014 - Depressive disorder, not elsewhere classified - Diabetes mellitus type 2, controlled, without complications (HCC) 08/25/2017 - Diverticulosis of colon (without mention of hemorrhage) - Esophageal reflux - Family history of malignant neoplasm of gastrointestinal tract - GENERAL OSTEOARTHROSIS 04/08/2008 - Gout 04/01/2011 - HYPERGLYCEMIA 07/19/2005 - HYPERLIPIDEMIA NEC/NOS 07/19/2005 - HYPERTENSION NOS 09/03/2007 - Hypertrophy of prostate without urinary obstruction and other lower urinary tract symptoms (LUTS) - Impaired fasting blood sugar 07/19/2005 - Internal hemorrhoids without mention of complication - IRON DEFIC ANEMIA NEC 07/19/2005 - Macular degeneration (senile) of retina, unspecified - MALIGN NEOPL PROSTATE 05/23/2005 - Other pulmonary embolism without acute cor pulmonale 01/27/2017 - Personal history of colonic polyps - 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 - Unspecified asthma(493.90) Past Surgical History PAST SURGICAL HISTORY Procedure Laterality Date - APPENDECTOMY 11-02-14 - COLONOS W/REM POLYP SNARE 07/25/05 - COLONOS W/REM POLYP SNARE 01/17/11 - COLONOSCOP W/ OR W/O BRSH SPEC 07/28/14 Colonoscopy - COLONOSCOP W/ OR W/O BRS SPEC 12-20-15 - COLONOSCOPY - DIAGNOSTIC 03/02/2003 - DEBRIDEMENT WOUND 21+ SQ CM Left 09/12/2017 Left leg abcess s/pt traumatic wound. - EGD W/O OR W/BRUSH/WASH 04/17/15 EGD - KNEE SCOPE,DIAGNOSTIC 1998 LEFT - LAP COLECTMY W/ILEUM/ILEOCOL 11-02-14 WITH INCISIONAL HERNIA REPAIR - LAPAROSCOPIC HEMICOLECTOMY 11-02-14 - REMV PROSTATE,PERINEAL,RADICAL 11/28/2003 - REPAIR ROTATOR CUFF,ACUTE 03/04/2002 Rotator cuff repair Left - REPAIR UMBILICAL BAKARI,5+Y/O,REDUC 03/01/1996 Hernia repair, umbilical >5yr - REVISE MEDIAN N/CARPAL TUNNEL SURG Bilateral 1993 Carpal tunnel decomp; , - TOTAL HIP REPLACEMENT 07/26/2013 Hip replacement, total, LEFT, Dr. Rojas - TOTAL KNEE REPLACEMENT 06/2008 left knee Family History FAMILY HISTORY Problem Relation Age of Onset - Diabetes Father - Colon Cancer Father - Asthma Mother - Colon Cancer Sister - Diabetes Sister - Colon Cancer Other REVIEW OF SYSTEMS: General: General: Well developed, well nourished. No acute distress HEENT: Negative for sore throat, difficulty swallowing. Negative for frequent or significant headaches, changes in vision or hearing. Cardiovascular: No history of cardiovascular symtoms or problems. No history of angina, CHF, ND, cardiac surgery of stents. Respiratory: Negative for current cough, dyspnea. No hx of pneumonia in the past six weeks Gastrointestinal: No history of GERD, PUD, abd pain, difficulty swallowing, GI bleed. Renal: Negative for renal failure and No history of dialysis Musculoskeletal: Negative for joint pain or swelling, back pain or muscle pain. Skin: Negative for lesions, rash and itching. Psychological: No history of psychiatric symptoms or problems. 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 No neurological symptoms or problems. Hematology/Oncology: No history of bleeding or clotting disorder. Pt is not taking anti-coagulation or platelet medications. No history of hematological symptoms or problems. Endocrine: No history of endocrinological symtoms or problems No history of DM; has not taken steroids w/in past 30 days. Negative for excessive sweating, thirst or hunger PHYSICAL EXAMINATION: General Appearance/ Constitutional: Well developed, well nourished, and in no apparent distress HEENT: Not examined Neck: Lymph Nodes: Not examined Cardiac: Normal Breast: Not examined Pulmonary: Ascultation: Normal Effort: Normal GI: Soft and Non-tender Peripheral Vascular: Not examined Extremities: Cyanosis absent and Edema absent Skin: Normal Neurologic: Grossly non-focal and Alert and oriented (MALE): Penis: Uncircumcised and 1.5 cm white plaque with erythema Testicles: bilaterally and normal Cord/Epididymis: bilaterally and normal Vas Deferens: bilaterally and normal Scrotum: Normal ADDITIONAL DATA REVIEWED: Most recent imaging Most recent labs IMPRESSION / PLAN: > History of Penile Lesion - Uncircumcised > underside of penis - Right side 1.5 cm white patch /plaque with erythema > first noticed 2 weeks ago > was started on Bacitracin and Steroid Oint with no change > No Pain now > Refer to Dr. Marrero for Consult and possible resection I spent approximately 40 minutes in this visit, with more than 50% of the time devoted to patient discussion, counseling, review of records and/or coordination of care. Nithya Grande MPAS, [place], [place]ANK[place] ROBERTS Observed: 05/22/2018 Status: COMPLETED Source: [place] 10:30 AM [facility] REPOSITORY Office Visit (UROLWS) CARISSA YIP ([id number]) 1940 M Date Time Provider Department 05/22/18 10:30 AM NITHYA GRANDE) UROLWS During your visit today, we recorded the following information about you: Pulse Blood pressure Weight 70/minute 140/70 91.2 kg IAN Morales 05/22/2018 4:58 PM Signed [facility] [place] PATIENT INFO: Carissa Yip 77 year old PCP: Lambert Larios MD Referred by: Lambert Larios MD Consult: A consultation was requested by Lambert Larios MD for an opinion regarding Penile Lesion My final recommendations communicated back to the requesting physician by way of shared Medical record. CHIEF COMPLAINT: Penile Lesion HPI: This is a 77 year old male, who has Penile Lesion , which started in 2018, and involves the Penis Patient states this moderate in severity and moderate in quality, and is happening daily Aggravating factors: uncircumcised and balanitis for 3 weeks treated with rx , Alleviating Factors: No . And the patient denies having Fever, Chills, Rigors, Nausea and Vomiting VOIDING SYMPTOMS: NTF: 2 Times DTF: Q 3 HOURS FOS: Poor Hesitancy: Yes Straining: Yes Intermittency: Yes Urgency: Yes Frequency: Yes Dysuria: Yes Gross Hematuria: No U/A Dipstick Positive Blood - Only No Incomplete Voiding: Yes Double Voiding: Yes Post Void Dribbling: Yes Incontinence: No ALLERGY: ALLERGIES Allergen Reactions - Indocin [Indomethac* Other: See Comments Wheezing, can take naprosyn - Percocet [Oxycodone* Itching - Seasonal Allergies Other: See Comments Cat, Goats, Dust mites, molds, trees, grasses, weed, ragweed MEDICATIONS: Current Outpatient Prescriptions: cephALEXin (KEFLEX) 500 mg capsule Take 1 capsule by mouth three times daily for 10 days. Disp: 30 capsule Rfl: 0 mupirocin (BACTROBAN) 2 % cream Apply 1 application to affected area three times daily for 10 days. Location: penis Disp: 22 g Rfl: 0 azithromycin (ZITHROMAX Z-DONNA) 250 mg tablet TAKE 2 TABS ON THE FIRST DAY, THEN ONE TAB DAILY FOR 4 DAYS. Disp: 1 Package Rfl: 0 nystatin (MYCOSTATIN) 100,000 unit/mL suspension Swish and swallow 5 ml four times a day for thrush Disp: 280 mL Rfl: 0 albuterol HFA (PROVENTIL HFA, VENTOLIN HFA) 90 mcg/actuation inhaler Inhale 2 Puffs as instructed every 4 hours as needed (for cough, wheezing, chest tightness or shortness of breath. Use with spacer. ). Disp: 1 Inhaler Rfl: 2 atorvastatin (LIPITOR) 10 mg tablet take 1 tablet by mouth at bedtime Disp: 90 tablet Rfl: 3 furosemide (LASIX) 20 mg tablet Take 1 tablet by mouth once daily. Disp: 30 tablet Rfl: 11 SPIRIVA WITH HANDIHALER 18 mcg inhalation capsule inhale the contents of one capsule in the handihaler once daily Disp: 90 capsule Rfl: 3 nystatin-triamcinolone (MYCOLOG II) cream Apply 1 application to affected area twice daily as needed. Genital rash. Disp: 1 Tube Rfl: 2 guaiFENesin (MUCINEX) 600 mg 12 hr tablet Take 1 tablet by mouth twice daily. Disp: 60 tablet Rfl: 3 aspirin, enteric coated (ASPIRIN, ENTERIC COATED) 81 mg EC tablet Take 81 mg by mouth once daily. Disp: Rfl: azelastine (ASTELIN,ASTEPRO) 0.1% nasal spray instill 2 sprays into each nostril twice a day Disp: 1 Bottle Rfl: 11 fluticasone (FLONASE) 50 mcg/actuation nasal spray instill 2 sprays into each nostril twice a day Disp: 1 Bottle Rfl: 11 albuterol (PROVENTIL) 2.5 mg /3 mL (0.083 %) nebulizer solution Use 3 mL via nebulizer every 4 hours as needed. Diagnosis: severe persistent asthma J45.50 Disp: 375 mL Rfl: 0 sertraline (ZOLOFT) 100 mg tablet Take 1.5 tablets by mouth once daily. Disp: 135 tablet Rfl: 3 montelukast (SINGULAIR) 10 mg tablet Take 1 tablet by mouth daily at bedtime. Disp: 90 tablet Rfl: 3 nitroglycerin sublingual (NITROQUICK) 0.4 mg SL tablet Dissolve 1 tablet under the tongue every 5 minutes as needed for Chest Pain. Disp: 1 Bottle of 25 Rfl: 0 ADVAIR HFA 230-21 mcg/actuation inhaler take 2 inhalations by mouth twice a day Rinse mouth after use Disp: 3 Inhaler Rfl: 3 omeprazole (PRILOSEC) 20 mg capsule Take 1 capsule by mouth daily before breakfast. 1/2 hr before meal. Disp: 90 capsule Rfl: 3 lisinopril (ZESTRIL, PRINIVIL) 20 mg tablet Take 1 tablet by mouth once daily. Disp: 90 tablet Rfl: 3 leflunomide (ARAVA) 10 mg tablet Take 10 mg by mouth once daily. Disp: Rfl: VENTOLIN HFA 90 mcg/actuation inhaler inhale 2 puffs every 4 hours if needed Disp: 1 Inhaler Rfl: 2 ipratropium-albuterol (DUONEB) 0.5 mg-3 mg(2.5 mg base)/3 mL nebu Inhale 3 mL as instructed four times daily as needed. by nebulizer over 5 to 15 minutes. Disp: 120 Vial Rfl: 3 EPINEPHrine (EPIPEN) 0.3 mg/0.3 mL auto-injector Inject 0.3 mL intramuscularly as needed. Disp: 1 Each Rfl: 1 albuterol HFA (PROVENTIL HFA) 90 mcg/actuation inhaler Inhale 2 Puffs as instructed. Disp: Rfl: polyethylene glycol 3350 (MIRALAX, GLYCOLAX) 17 gram/dose powder Take 17 g by mouth once daily. Take one (1) capful in 8oz of liquid each day. Disp: 527 g Rfl: 11 ipratropium (ATROVENT) 0.02 % nebulizer solution 500 mcg (one ampule) nebulized four times a day as needed. Disp: 120 Vial Rfl: 11 Vitamin A-Vit C-Vit E-Zinc-Cu (OCUVITE PRESERVISION) ORAL Tab Take one(1) tablet two(2) times daily. Disp: Rfl: 0 No current facility-administered medications for this visit. Past Medical History PAST MEDICAL HISTORY Diagnosis Date - Anxiety state, unspecified - Benign neoplasm of colon - Chronic rhinitis - Colon polyp 10/2014 - Depressive disorder, not elsewhere classified - Diabetes mellitus type 2, controlled, without complications (HCC) 08/25/2017 - Diverticulosis of colon (without mention of hemorrhage) - Esophageal reflux - Family history of malignant neoplasm of gastrointestinal tract - GENERAL OSTEOARTHROSIS 04/08/2008 - Gout 04/01/2011 - HYPERGLYCEMIA 07/19/2005 - HYPERLIPIDEMIA NEC/NOS 07/19/2005 - HYPERTENSION NOS 09/03/2007 - Hypertrophy of prostate without urinary obstruction and other lower urinary tract symptoms (LUTS) - Impaired fasting blood sugar 07/19/2005 - Internal hemorrhoids without mention of complication - IRON DEFIC ANEMIA NEC 07/19/2005 - Macular degeneration (senile) of retina, unspecified - MALIGN NEOPL PROSTATE 05/23/2005 - Other pulmonary embolism without acute cor pulmonale 01/27/2017 - Personal history of colonic polyps - 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 - Unspecified asthma(493.90) Past Surgical History PAST SURGICAL HISTORY Procedure Laterality Date - APPENDECTOMY 11-02-14 - COLONOS W/REM POLYP SNARE 07/25/05 - COLONOS W/REM POLYP SNARE 01/17/11 - COLONOSCOP W/ OR W/O BRSH SPEC 07/28/14 Colonoscopy - COLONOSCOP W/ OR W/O BRSH SPEC --16 - COLONOSCOPY - DIAGNOSTIC 03/02/2003 - DEBRIDEMENT WOUND 21+ SQ CM Left 09/12/2017 Left leg abcess s/pt traumatic wound. - EGD W/O OR W/BRUSH/WASH 04/17/15 EGD - KNEE SCOPE,DIAGNOSTIC 1998 LEFT - LAP COLECTMY W/ILEUM/ILEOCOL 11-02-14 WITH INCISIONAL HERNIA REPAIR - LAPAROSCOPIC HEMICOLECTOMY 11-02-14 - REMV PROSTATE,PERINEAL,RADICAL 11/28/2003 - REPAIR ROTATOR CUFF,ACUTE 03/04/2002 Rotator cuff repair Left - REPAIR UMBILICAL BAKARI,5+Y/O,REDUC 03/01/1996 Hernia repair, umbilical >5yr - REVISE MEDIAN N/CARPAL TUNNEL SURG Bilateral 1993 Carpal tunnel decomp; , - TOTAL HIP REPLACEMENT 07/26/2013 Hip replacement, total, LEFT, Dr. Rojas - TOTAL KNEE REPLACEMENT 06/2008 left knee Family History FAMILY HISTORY Problem Relation Age of Onset - Diabetes Father - Colon Cancer Father - Asthma Mother - Colon Cancer Sister - Diabetes Sister - Colon Cancer Other REVIEW OF SYSTEMS: General: General: Well developed, well nourished. No acute distress HEENT: Negative for sore throat, difficulty swallowing. Negative for frequent or significant headaches, changes in vision or hearing. Cardiovascular: No history of cardiovascular symtoms or problems. No history of angina, CHF, ND, cardiac surgery of stents. Respiratory: Negative for current cough, dyspnea. No hx of pneumonia in the past six weeks Gastrointestinal: No history of GERD, PUD, abd pain, difficulty swallowing, GI bleed. Renal: Negative for renal failure and No history of dialysis Musculoskeletal: Negative for joint pain or swelling, back pain or muscle pain. Skin: Negative for lesions, rash and itching. Psychological: No history of psychiatric symptoms or problems. 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 No neurological symptoms or problems. Hematology/Oncology: No history of bleeding or clotting disorder. Pt is not taking anti-coagulation or platelet medications. No history of hematological symptoms or problems. Endocrine: No history of endocrinological symtoms or problems No history of DM; has not taken steroids w/in past 30 days. Negative for excessive sweating, thirst or hunger PHYSICAL EXAMINATION: General Appearance/ Constitutional: Well developed, well nourished, and in no apparent distress HEENT: Not examined Neck: Lymph Nodes: Not examined Cardiac: Normal Breast: Not examined Pulmonary: Ascultation: Normal Effort: Normal GI: Soft and Non-tender Peripheral Vascular: Not examined Extremities: Cyanosis absent and Edema absent Skin: Normal Neurologic: Grossly non-focal and Alert and oriented (MALE): Penis: Uncircumcised and 1.5 cm white plaque with erythema Testicles: bilaterally and normal Cord/Epididymis: bilaterally and normal Vas Deferens: bilaterally and normal Scrotum: Normal ADDITIONAL DATA REVIEWED: Most recent imaging Most recent labs IMPRESSION / PLAN: > History of Penile Lesion - Uncircumcised > underside of penis - Right side 1.5 cm white patch /plaque with erythema > first noticed 2 weeks ago > was started on Bacitracin and Steroid Oint with no change > No Pain now > Refer to Dr. Marrero for Consult and possible resection I spent approximately 40 minutes in this visit, with more than 50% of the time devoted to patient discussion, counseling, review of records and/or coordination of care. Nithya Grande, MPAS, [place], FRANKLIN Mack 05/22/2018 12:12 PM Signed May 22, 2018 12:12 PM Called and spoke to patient, he is scheduled for Friday05/27/18 in the [place] location, address given-[place] [place] Referring Provider: SELF [[id number]] Allergies As of Date: 05/22/2018 Noted Allergy Reaction INDOCIN (INDOMETHACIN SODIUM) 04/01/2011 14 - Other: See Comments Comments: Wheezing, can take naprosyn PERCOCET (OXYCODONE-ACETAMINOPHEN)01/08/2005 9 - Itching SEASONAL ALLERGIES 11/12/2012 14 - Other: See Comments Comments: Cat, Goats, Dust mites, molds, trees, grasses, weed, ragweed Date Reviewed: 05/22/2018 Reviewed by: Nithya Grande (Pa) - Fully Assessed Reason for Visit: lesion on penis [Other] Primary Visit Diagnosis:Penile lesion [N48.9] Order(s):UA DIP, URINE (POC) [[id number]] Order #: [id number]. #:[id number] Prescriptions as of 05/22/2018 Sig: CEPHALEXIN 500 MG CAPSULE Take 1 capsule by mouth three* MUPIROCIN 2 % TOPICAL CREAM Apply 1 application to affect* AZITHROMYCIN 250 MG TABLET TAKE 2 TABS ON THE FIRST DAY,* NYSTATIN 100,000 UNIT/ML ORAL* Swish and swallow 5 ml four t* ALBUTEROL SULFATE HFA 90 MCG/* Inhale 2 Puffs as instructed * ATORVASTATIN 10 MG TABLET take 1 tablet by mouth at bed* FUROSEMIDE 20 MG TABLET Take 1 tablet by mouth once d* SPIRIVA WITH HANDIHALER 18 MC* inhale the contents of one ca* NYSTATIN-TRIAMCINOLONE 100,00* Apply 1 application to affect* GUAIFENESIN ER 600 MG TABLET,* Take 1 tablet by mouth twice * ASPIRIN 81 MG TABLET,DELAYED * Take 81 mg by mouth once christiano* AZELASTINE 137 MCG (0.1 %) NA* instill 2 sprays into each no* FLUTICASONE 50 MCG/ACTUATION * instill 2 sprays into each no* ALBUTEROL SULFATE 2.5 MG/3 ML* Use 3 mL via nebulizer every * SERTRALINE 100 MG TABLET Take 1.5 tablets by mouth onc* MONTELUKAST 10 MG TABLET Take 1 tablet by mouth daily * NITROGLYCERIN 0.4 MG SUBLINGU* Dissolve 1 tablet under the t* ADVAIR HFA 230 MCG-21 MCG/ACT* take 2 inhalations by mouth t* OMEPRAZOLE 20 MG CAPSULE,ALEX* Take 1 capsule by mouth daily* LISINOPRIL 20 MG TABLET Take 1 tablet by mouth once d* LEFLUNOMIDE 10 MG TABLET Take 10 mg by mouth once christiano* VENTOLIN HFA 90 MCG/ACTUATION* inhale 2 puffs every 4 hours * IPRATROPIUM-ALBUTEROL 0.5 MG-* Inhale 3 mL as instructed fou* EPINEPHRINE 0.3 MG/0.3 ML INJ* Inject 0.3 mL intramuscularly* ALBUTEROL SULFATE HFA 90 MCG/* Inhale 2 Puffs as instructed. POLYETHYLENE GLYCOL 3350 17 G* Take 17 g by mouth once daily* IPRATROPIUM BROMIDE 0.02 % SO* 500 mcg (one ampule) nebulize* PRESERVISION AREDS 7,160 UNIT* Take one(1) tablet two(2) link* Problem List As Of Date 05/22/2018 Noted Resolved Asthma [J45.909] 08/25/2017 CHRONIC RHINITIS [J31.0] BPH without obstruction/lower urinary tract sym* ANXIETY STATE NOS [F41.1] 08/05/2014 Depression with anxiety [F41.8] Diverticulosis of colon (without mention of hem* 10/06/2012 ESOPHAGEAL REFLUX [K21.9] Internal hemorrhoids without mention of complic* 08/30/2010 Malignant neoplasm of prostate (HCC) [C61] INVALID FOR*08/05/2014 MACULAR DEGENERATION NOS [H35.30] Other specified iron deficiency anemias [D50.8] INVALID FOR*08/30/2010 Diabetes mellitus type 2, controlled, without c*INVALID FOR* Hyperlipidemia [E78.5] INVALID FOR* Personal history of colonic polyps [Z86.010] INVALID FOR*09/30/2011 More... FAMILY HX COLON CANCER [Z80.0] INVALID FOR*08/25/2017 PULMONARY NODULES [J98.4] INVALID FOR*10/06/2012 More... 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] INVALID FOR* Essential hypertension [I10] INVALID FOR* Generalized osteoarthritis of multiple sites [M*INVALID FOR* Benign neoplasm of rectum and anal canal [D12.8*INVALID FOR*10/06/2012 Benign neoplasm of colon [D12.6] INVALID FOR* Gout [M10.9] INVALID FOR* Venous insufficiency of leg [I87.2] INVALID FOR* Iron deficiency anemia due to chronic blood los*INVALID FOR* Inflammatory polyarthropathy of multiple sites *INVALID FOR* Unsteady gait [R26.81] INVALID FOR* Uncomplicated severe persistent asthma [J45.50] INVALID FOR* Other pulmonary embolism without acute cor pulm*INVALID FOR*12/29/2017 Pulmonary hypertension (HCC) [I27.20] INVALID FOR* Memory disturbance [R41.3] INVALID FOR* Obesity, Class I, BMI 30-34.9 E66.9 [E66.9] INVALID FOR* Open wound of left lower extremity [S81.802A] INVALID FOR* Prothrombin T17313X mutation (HCC) [D68.52] INVALID FOR*12/29/2017 Allergic rhinitis due to cats [J30.81] INVALID FOR* Allergic rhinitis due to dust mite [J30.89] INVALID FOR* Allergic rhinitis due to fungal spores [J30.89] INVALID FOR* Seasonal allergic rhinitis due to pollen [J30.1]INVALID FOR* Penile lesion [N48.9] INVALID FOR* Follow-up and Disposition History Recorded Encounter Status:Closed by NITHYA GRANDE PA-C on 05/22/18 PROGRESS Observed: 05/20/2018 Status: COMPLETED Source: [place] 3:19 PM [facility] REPOSITORY O ID: [id number] Author: Heather Lozano Service: (none) Author Type: (none) Type: Progress Notes Filed: 05/20/2018 3:21 PM Note Text: RADIOLOGY SERVICE PROGRESS NOTE SERVICE DATE: 05/20/2018 SERVICE TIME: 3:19 PM PATIENT IDENTITY VERIFICATION COMPLETED USING TWO (2) METHODS: Patient confirmed name and Date of verbally. PATIENT GENDER DATA: .male ALLERGIES: Reviewed and unchanged MEDICATIONS REVIEWED: Yes PATIENT RELEVANT IMPLANT DATA REVIEWED: Not Applicable CREATININE: Creatinine Date Value Ref Range Status 03/25/2018 1.11 0.73 - 1.22 mg/dL Final 12/06/2017 1.10 0.73 - 1.22 mg/dL Final 07/21/2017 1.18 0.73 - 1.22 mg/dL Final Creatinine, Whole Blood (iSTAT) Date Value Ref Range Status 08/25/2017 1.10 0.70 - 1.40 mg/dL Final eGFR-All Other Races Date Value Ref Range Status 03/25/2018 >60 . Final Comment: eGFR (Estimated GFR) Units of measure: mL/min/1.73 meters squared eGFR is derived from the reexpressed MDRD Study equation using the following parameters: serum creatinine, age, gender and race. The creatinine assay has been calibrated to be traceable to IDMS. An eGFR <60 mL/min/1.73m2 for >3 months is consistent with chronic kidney disease. Refer to KDOQI guidelines for clinical interpretation. In patients with unstable renal function, e.g. those with acute kidney injury, the eGFR may not accurately reflect actual GFR. eGFR- Date Value Ref Range Status 03/25/[address] >[address] PERFORMED: No IV SITE: Ambulatory: A peripheral IV was started in the Right antecubital site with a Angio cath: 22 gauge. POST EXAM PIV STATUS: Discontinued PROCEDURE TYPE: NM Stress: 13.1mCi Kl17p-Uqoaucu was administered IV for Rest Imaging at 12:28 by KRAFTWERK. 33.5 mCi Tc99m- Myoview was administered IV for Stress Imaging at 14:03 by KRAFTWERK. ADMINISTRATION TIME: PATIENT DISCHARGED TO: Ambulatory patient, left NM department area. A Diagnostic radioactive procedure has taken place, with no further precautions necessary other than routine body substance precautions. More information regarding radiation safety can be found using this link: [email or web address] SIGNATURE: KRAFTWERK PATIENT NAME: Carissa Yip DATE: May 20, 2018 TIME: 3:19 PM PAGER/CONTACT #: DEMETRIS CARDIAC PERF Observed: 05/20/2018 Status: F Source: [place] STRESS/PHARM 3:00 PM [facility] REPOSITORY * * *Final Report* * * DATE OF EXAM: May 20 2018 3:00PM LUIS EDUARDO WILLSON CARDIAC PERF STRESS/PHARM / PROCEDURE REASON: RAYMOND (dyspnea on exertion) [R06.09];Dyspnea on exertion [R06.09] * * * * Physician Interpretation * * * * PATIENT: Name: CARISSA YIP Age: 77 years Gender: M CONCLUSIONS: 1. SPECT Perfusion Study: Normal. 2. There is no scintigraphic evidence for inducible ischemia. 3. No evidence of scarred myocardium. 4. Functional capacity N/A (pharmacological). 5. Left ventricle is normal in size. The left ventricle systolic function is hyperdynamic. 6. Right ventricle is normal in size. The right ventricle systolic function is normal. 7. This is a low risk scan. Gated Stress FBP LVEF % 76 Prior Study Comparison No prior nuclear cardiology exam available for comparison. Nuclear Med Report:1-Day Tc-Tetrofosmin Gated SPECT Myocardial Perfusion with Regadenoson Stress: Myocardial perfusion imaging was performed at rest 30 minutes following the IV injection of Tc-99m tetrofosmin. The patient received 0.4 mg of regadenoson, via rapid IV push, immediately followed by Tc-99m tetrofosmin IV. Gated post stress tomographic imaging was performed 30 to 60 minutes later. See administered doses below. [facility] Date of service: 05/20/2018 9:44:24 AM Ordering Physician: Requesting Physician: REG VERMA Indication: Dyspnea, Assessment for suspected CAD and Unable to Exercise. Interpreting physician: Sohail Oakley MD Patient History: History of valvular heart disease, hypertension, dyslipidemia and diabetes mellitus. Medications currently taking are ASA, statins, diuretic and ACEI. Height: 165.10 cm BSA: 2.08 m? Weight: 93.90 kg BMI: 34.4 kg/m? Exam Type: Rest Stress Radiopharm: Tc-99m Tetrofosmin Tc-99m Tetrofosmin Dosage(mCi): 13.1 33.5 Stress Agent: Regadenoson 0.4mg Supply provided from [facility] Resting Heart Rate: 90 bpm Resting Blood Press: 130/70 mmHg Image Quality The overall study imaging quality was deemed to be good. FINDINGS: Left Ventricle Wall Motion: Stress IR:3D - All scored segments are normal. Rest IR:3D - Gated Stress FBP - Reversibility - Stress IR:3D Stress IR:3D Gated Stress FBP LVEF: 76 % ED Volume: 80 ml ES Volume: 19 ml TID: 0.89 Perfusion Findings Stress IR:3D - Summed Score=0 All scored segments reflect normal perfusion. Rest IR:3D - Summed Score=0 All scored segments reflect normal perfusion. Stress IR:3D Rest IR:3D Summed Score=0 Summed Score=0 LEFT VENTRICLE The left ventricle is normal in size. Left ventricular systolic function is hyperdynamic. Right Ventricle The right ventricle is normal in size. Right ventricle systolic function is normal. Stress Test Findings: There is no scintigraphic evidence for inducible ischemia. There is no evidence of scarring. The stress test was terminated due to the following: End of Protocol. Peak HR 100 bpm. (71 % MPHR) Peak BP 136 mmHg/68 mmHg Patient experienced no symptoms during stress. Stress ECG normal ST segment response. Stress complications: none. The left ventricular cavity size is unchanged with stress. Final Orthotics Prosthetics Assistant: KATJA Transcribe Date/Time: May 20 2018 9:44A Dictated by : SOHAIL OAKLEY MD This examination was interpreted and the report reviewed and electronically signed by: SOHAIL OAKLEY MD on May 20 2018 3:48PM EST [id number] Observed: 05/20/2018 Status: COMPLETED Source: [place] 2:12 PM [facility] REPOSITORY HNO ID: [id number] Author: Hernando Trimble (Rcep) Service: (none) Author Type: Care Technician Type: Progress Notes Filed: 05/20/2018 2:12 PM Note Text: Preliminary report complete; results under imaging tab. GLORIA Hdz CNNURSE Observed: 05/20/2018 Status: COMPLETED Source: [place] 1:30 PM [facility] REPOSITORY Nurse Visit (CAWSTR) CARISSA YIP ([id number]) 1940 M Date Time Provider Department 05/20/18 1:30 PM NURSE CARD ADMIN [facility] During your visit today, we recorded the following information about you: Tomas Prince RN 05/20/2018 2:11 PM Signed lexiscan 0.4mg/5ml given over 10 second IV push. Lot number [id number], exp date 06-19-2021. Patient tolerated injection well. GLORIA Queen RN 05/20/2018 2:12 PM Signed Preliminary report complete; results under imaging tab. GLORIA Hdz Referring Provider: REG VERMA [[id number]] Allergies As of Date: 05/20/2018 Noted Allergy Reaction INDOCIN (INDOMETHACIN SODIUM) 04/01/2011 14 - Other: See Comments Comments: Wheezing, can take naprosyn PERCOCET (OXYCODONE-ACETAMINOPHEN)01/08/2005 9 - Itching SEASONAL ALLERGIES 11/12/2012 14 - Other: See Comments Comments: Cat, Goats, Dust mites, molds, trees, grasses, weed, ragweed Date Reviewed: 05/17/2018 Reviewed by: Shant Gutierrez - Fully Assessed Visit Diagnosis:Dyspnea on exertion [R06.09] Order(s):NM CARDIAC PERF STRESS/PHARM [[id number]] Order #: [id number] Prescriptions as of 05/20/2018 Sig: ADVAIR HFA 230 MCG-21 MCG/ACT* take 2 inhalations by mouth t* ALBUTEROL SULFATE 2.5 MG/3 ML* Use 3 mL via nebulizer every * ALBUTEROL SULFATE HFA 90 MCG/* Inhale 2 Puffs as instructed. ALBUTEROL SULFATE HFA 90 MCG/* Inhale 2 Puffs as instructed * ASPIRIN 81 MG TABLET,DELAYED * Take 81 mg by mouth once christiano* ATORVASTATIN 10 MG TABLET take 1 tablet by mouth at bed* AZELASTINE 137 MCG (0.1 %) NA* instill 2 sprays into each no* AZITHROMYCIN 250 MG TABLET TAKE 2 TABS ON THE FIRST DAY,* CEPHALEXIN 500 MG CAPSULE Take 1 capsule by mouth three* EPINEPHRINE 0.3 MG/0.3 ML INJ* Inject 0.3 mL intramuscularly* FLUTICASONE 50 MCG/ACTUATION * instill 2 sprays into each no* FUROSEMIDE 20 MG TABLET Take 1 tablet by mouth once d* GUAIFENESIN ER 600 MG TABLET,* Take 1 tablet by mouth twice * IPRATROPIUM BROMIDE 0.02 % SO* 500 mcg (one ampule) nebulize* IPRATROPIUM-ALBUTEROL 0.5 MG-* Inhale 3 mL as instructed fou* LEFLUNOMIDE 10 MG TABLET Take 10 mg by mouth once christiano* LISINOPRIL 20 MG TABLET Take 1 tablet by mouth once d* MONTELUKAST 10 MG TABLET Take 1 tablet by mouth daily * MUPIROCIN 2 % TOPICAL CREAM Apply 1 application to affect* NITROGLYCERIN 0.4 MG SUBLINGU* Dissolve 1 tablet under the t* NYSTATIN 100,000 UNIT/ML ORAL* Swish and swallow 5 ml four t* NYSTATIN-TRIAMCINOLONE 100,00* Apply 1 application to affect* OMEPRAZOLE 20 MG CAPSULE,ALEX* Take 1 capsule by mouth daily* POLYETHYLENE GLYCOL 3350 17 G* Take 17 g by mouth once daily* SERTRALINE 100 MG TABLET Take 1.5 tablets by mouth onc* SPIRIVA WITH HANDIHALER 18 MC* inhale the contents of one ca* VENTOLIN HFA 90 MCG/ACTUATION* inhale 2 puffs every 4 hours * PRESERVISION AREDS 7,160 UNIT* Take one(1) tablet two(2) link* Problem List As Of Date 05/20/2018 Noted Resolved Asthma [J45.909] 08/25/2017 CHRONIC RHINITIS [J31.0] BPH without obstruction/lower urinary tract sym* ANXIETY STATE NOS [F41.1] 08/05/2014 Depression with anxiety [F41.8] Diverticulosis of colon (without mention of hem* 10/06/2012 ESOPHAGEAL REFLUX [K21.9] Internal hemorrhoids without mention of complic* 08/30/2010 Malignant neoplasm of prostate (HCC) [C61] INVALID FOR*08/05/2014 MACULAR DEGENERATION NOS [H35.30] Other specified iron deficiency anemias [D50.8] INVALID FOR*08/30/2010 Diabetes mellitus type 2, controlled, without c*INVALID FOR* Hyperlipidemia [E78.5] INVALID FOR* Personal history of colonic polyps [Z86.010] INVALID FOR*09/30/2011 More... FAMILY HX COLON CANCER [Z80.0] INVALID FOR*08/25/2017 PULMONARY NODULES [J98.4] INVALID FOR*10/06/2012 More... 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] INVALID FOR* Essential hypertension [I10] INVALID FOR* Generalized osteoarthritis of multiple sites [M*INVALID FOR* Benign neoplasm of rectum and anal canal [D12.8*INVALID FOR*10/06/2012 Benign neoplasm of colon [D12.6] INVALID FOR* Gout [M10.9] INVALID FOR* Venous insufficiency of leg [I87.2] INVALID FOR* Iron deficiency anemia due to chronic blood los*INVALID FOR* Inflammatory polyarthropathy of multiple sites *INVALID FOR* Unsteady gait [R26.81] INVALID FOR* Uncomplicated severe persistent asthma [J45.50] INVALID FOR* Other pulmonary embolism without acute cor pulm*INVALID FOR*12/29/2017 Pulmonary hypertension (HCC) [I27.20] INVALID FOR* Memory disturbance [R41.3] INVALID FOR* Obesity, Class I, BMI 30-34.9 E66.9 [E66.9] INVALID FOR* Open wound of left lower extremity [S81.802A] INVALID FOR* Prothrombin 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 Lot number [id number], exp date 06-19-2021. Patient tolerated injection well. Tomas Prince RN Encounter Status:Closed by Hernando SILVA on 05/20/18 PROGRESS Observed: 05/17/2018 Status: COMPLETED Source: [place] 1:57 PM [facility] [place] REPOSITORY O ID: [id number] Author: Shant Gutierrez Service: (none) Author Type: Nurse Practitioner Type: Progress Notes Filed: 05/17/2018 2:02 PM Note Text: Subjective HPI HPI Carissa Yip is a 77 year old male who presents today for CC of sore penis. Has had this off and on for years. Denies UTI symptoms. Patient feels from urin sitting in foreskin. Denies testicular pain. .Patient presents with: Penis/Scrotum Problem: sore on foreskin PAST MEDICAL HISTORY Diagnosis Date - Anxiety state, unspecified - Benign neoplasm of colon - Chronic rhinitis - Colon polyp 10/2014 - Depressive disorder, not elsewhere classified - Diabetes mellitus type 2, controlled, without complications ([facility]) 08/25/2017 - Diverticulosis of colon (without mention of hemorrhage) - Esophageal reflux - Family history of malignant neoplasm of gastrointestinal tract - GENERAL OSTEOARTHROSIS 04/08/2008 - Gout 04/01/2011 - HYPERGLYCEMIA 07/19/2005 - HYPERLIPIDEMIA NEC/NOS 07/19/2005 - HYPERTENSION NOS 09/03/2007 - Hypertrophy of prostate without urinary obstruction and other lower urinary tract symptoms (LUTS) - Impaired fasting blood sugar 07/19/2005 - Internal hemorrhoids without mention of complication - IRON DEFIC ANEMIA NEC 07/19/2005 - Macular degeneration (senile) of retina, unspecified - MALIGN NEOPL PROSTATE 05/23/2005 - Other pulmonary embolism without acute cor pulmonale 01/27/2017 - Personal history of colonic polyps - 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 - Unspecified asthma(493.90) PAST SURGICAL HISTORY Procedure Laterality Date - APPENDECTOMY 11-02-14 - COLONOS W/REM POLYP SNARE 07/25/05 - COLONOS W/REM POLYP SNARE 01/17/11 - COLONOSCOP W/ OR W/O BRSH SPEC 07/28/14 Colonoscopy - COLONOSCOP W/ OR W/O BRS SPEC 12-20-15 - COLONOSCOPY - DIAGNOSTIC 03/02/2003 - DEBRIDEMENT WOUND 21+ SQ CM Left 09/12/2017 Left leg abcess s/pt traumatic wound. - EGD W/O OR W/BRUSH/WASH 04/17/15 EGD - KNEE SCOPE,DIAGNOSTIC 1998 LEFT - LAP COLECTMY W/ILEUM/ILEOCOL 11-02-14 WITH INCISIONAL HERNIA REPAIR - LAPAROSCOPIC HEMICOLECTOMY 11-02-14 - REMV PROSTATE,PERINEAL,RADICAL 11/28/2003 - REPAIR ROTATOR CUFF,ACUTE 03/04/2002 Rotator cuff repair Left - REPAIR UMBILICAL BAKARI,5+Y/O,REDUC 03/01/1996 Hernia repair, umbilical >5yr - REVISE MEDIAN N/CARPAL TUNNEL SURG Bilateral 1993 Carpal tunnel decomp; , - TOTAL HIP REPLACEMENT 07/26/2013 Hip replacement, total, LEFT, Dr. Rojas - TOTAL KNEE REPLACEMENT 06/2008 left knee ALLERGIES Indocin [Indomethacin Sodium]; Percocet [Oxycodone-Acetaminophen]; Seasonal Allergies -This section reviewed with patient, no changes MEDICATIONS ADVAIR HFA 230-21 mcg/actuation inhaler take 2 inhalations by mouth twice a day Rinse mouth after use albuterol (PROVENTIL) 2.5 mg /3 mL (0.083 %) nebulizer solution Use 3 mL via nebulizer every 4 hours as needed. Diagnosis: severe persistent asthma J45.50 albuterol HFA (PROVENTIL HFA) 90 mcg/actuation inhaler Inhale 2 Puffs as instructed. albuterol HFA (PROVENTIL HFA, VENTOLIN HFA) 90 mcg/actuation inhaler Inhale 2 Puffs as instructed every 4 hours as needed (for cough, wheezing, chest tightness or shortness of breath. Use with spacer. ). aspirin, enteric coated (ASPIRIN, ENTERIC COATED) 81 mg EC tablet Take 81 mg by mouth once daily. atorvastatin (LIPITOR) 10 mg tablet take 1 tablet by mouth at bedtime azelastine (ASTELIN,ASTEPRO) 0.1% nasal spray instill 2 sprays into each nostril twice a day azithromycin (ZITHROMAX Z-DONNA) 250 mg tablet TAKE 2 TABS ON THE FIRST DAY, THEN ONE TAB DAILY FOR 4 DAYS. cephALEXin (KEFLEX) 500 mg capsule Take 1 capsule by mouth three times daily for 10 days. EPINEPHrine (EPIPEN) 0.3 mg/0.3 mL auto-injector Inject 0.3 mL intramuscularly as needed. fluticasone (FLONASE) 50 mcg/actuation nasal spray instill 2 sprays into each nostril twice a day furosemide (LASIX) 20 mg tablet Take 1 tablet by mouth once daily. guaiFENesin (MUCINEX) 600 mg 12 hr tablet Take 1 tablet by mouth twice daily. ipratropium (ATROVENT) 0.02 % nebulizer solution 500 mcg (one ampule) nebulized four times a day as needed. ipratropium-albuterol (DUONEB) 0.5 mg-3 mg(2.5 mg base)/3 mL nebu Inhale 3 mL as instructed four times daily as needed. by nebulizer over 5 to 15 minutes. leflunomide (ARAVA) 10 mg tablet Take 10 mg by mouth once daily. lisinopril (ZESTRIL, PRINIVIL) 20 mg tablet Take 1 tablet by mouth once daily. montelukast (SINGULAIR) 10 mg tablet Take 1 tablet by mouth daily at bedtime. mupirocin (BACTROBAN) 2 % cream Apply 1 application to affected area three times daily for 10 days. Location: penis nitroglycerin sublingual (NITROQUICK) 0.4 mg SL tablet Dissolve 1 tablet under the tongue every 5 minutes as needed for Chest Pain. nystatin (MYCOSTATIN) 100,000 unit/mL suspension Swish and swallow 5 ml four times a day for thrush nystatin-triamcinolone (MYCOLOG II) cream Apply 1 application to affected area twice daily as needed. Genital rash. omeprazole (PRILOSEC) 20 mg capsule Take 1 capsule by mouth daily before breakfast. 1/2 hr before meal. polyethylene glycol 3350 (MIRALAX, GLYCOLAX) 17 gram/dose powder Take 17 g by mouth once daily. Take one (1) capful in 8oz of liquid each day. sertraline (ZOLOFT) 100 mg tablet Take 1.5 tablets by mouth once daily. SPIRIVA WITH HANDIHALER 18 mcg inhalation capsule inhale the contents of one capsule in the handihaler once daily VENTOLIN HFA 90 mcg/actuation inhaler inhale 2 puffs every 4 hours if needed Vitamin A-Vit C-Vit E-Zinc-Cu (OCUVITE PRESERVISION) ORAL Tab Take one(1) tablet two(2) times daily. FAMILY HISTORY Problem Relation Age of Onset - Diabetes Father - Colon Cancer Father - Asthma Mother - Colon Cancer Sister - Diabetes Sister - Colon Cancer Other Social History Substance Use Topics - Smoking status: Never Smoker - Smokeless tobacco: Never Used Comment: Father smoked in childhood home. No household smoke exposure since. 05/2014. - Alcohol use No Review of Systems Constitutional: Negative for chills, fever and weight loss. Respiratory: Negative for cough, shortness of breath and wheezing. Cardiovascular: Negative for chest pain and palpitations. Gastrointestinal: Negative for abdominal pain, blood in stool, constipation, diarrhea, heartburn, melena, nausea and vomiting. Genitourinary: Negative for dysuria, flank pain, frequency, hematuria and urgency. Objective Blood pressure 112/76, pulse 97, temperature 36.8 ?C (98.2 ?F), temperature source Tympanic, resp. rate 14, weight 93.9 kg (207 lb). Component Latest Ref Rng AND Units 03/25/2018 Glucose 74 - 99 mg/dL 146 (H) BUN 7 - 21 mg/dL 24 (H) Creatinine 0.73 - 1.22 mg/dL 1.11 Sodium 136 - 144 mmol/L 136 Potassium 3.7 - 5.1 mmol/L 4.5 Chloride 97 - 105 mmol/L 105 CO2 22 - 30 mmol/L 22 Anion Gap 9 - 18 mmol/L 9 Calcium 8.5 - 10.2 mg/dL 9.9 eGFR- >60 eGFR-All Other Races . >60 Physical Exam Constitutional: He is well-developed, well-nourished, and in no distress. Non-toxic appearance. He does not have a sickly appearance. No distress. Abdominal: Soft. Normal appearance and bowel sounds are normal. There is no hepatosplenomegaly. There is no tenderness. There is no CVA tenderness. Genitourinary: Genitourinary Comments: Sore on right/under side of penis, seen after retraction of foreskin. Mild surrounding erythema, no exudates. No penile drainage noted. Skin: Skin is warm and dry. ASSESSMENT/PLAN: 1. Sore of penis - ICD9: 607.89, ICD10: N48.89 Hygiene discussed Use medication as prescribed Keep follow up with urologist this week - CEPHALEXIN 500 MG CAPSULE - MUPIROCIN 2 % TOPICAL CREAM Prescription instructions reviewed with patient as applicable. Patient advised if symptoms do not improve or if symptoms worsen sooner, to contact the office for further evaluation by their primary care physician. Potential red flag symptoms discussed with the patient. Reviewed appropriate action plan to take if red flag symptoms occur. Patient agreeable to treatment plan. Shant Gutierrez APRN.[facility] CNOV Observed: 05/17/2018 Status: COMPLETED Source: [place] 11:45 AM [facility] REPOSITORY Office Visit ([facility]) CARISSA YIP ([id number]) 1940 M Date Time Provider Department 05/17/18 11:45 AM SHANT GUTIERREZ) [facility] During your visit today, we recorded the following information about you: Temperature Pulse Respiration Blood pressure 98.2 degrees 97/minute 14/minute 112/76 Weight 93.9 kg Shant Gutierrez APRN.CNP 05/17/2018 12:20 PM Signed ASSESSMENT/PLAN: 1. Sore of penis - ICD9: 607.89, ICD10: N48.89 Hygiene discussed Use medication as prescribed Keep follow up with urologist this week - CEPHALEXIN 500 MG CAPSULE - MUPIROCIN 2 % TOPICAL CREAM Shant Gutierrez APRN.CNP 05/17/2018 2:02 PM Signed Subjective HPI HPI Carissa Yip is a 77 year old male who presents today for CC of sore penis. Has had this off and on for years. Denies UTI symptoms. Patient feels from urin sitting in foreskin. Denies testicular pain. .Patient presents with: Penis/Scrotum Problem: sore on foreskin PAST MEDICAL HISTORY Diagnosis Date - Anxiety state, unspecified - Benign neoplasm of colon - Chronic rhinitis - Colon polyp 10/2014 - Depressive disorder, not elsewhere classified - Diabetes mellitus type 2, controlled, without complications (HCC) 08/25/2017 - Diverticulosis of colon (without mention of hemorrhage) - Esophageal reflux - Family history of malignant neoplasm of gastrointestinal tract - GENERAL OSTEOARTHROSIS 04/08/2008 - Gout 04/01/2011 - HYPERGLYCEMIA 07/19/2005 - HYPERLIPIDEMIA NEC/NOS 07/19/2005 - HYPERTENSION NOS 09/03/2007 - Hypertrophy of prostate without urinary obstruction and other lower urinary tract symptoms (LUTS) - Impaired fasting blood sugar 07/19/2005 - Internal hemorrhoids without mention of complication - IRON DEFIC ANEMIA NEC 07/19/2005 - Macular degeneration (senile) of retina, unspecified - MALIGN NEOPL PROSTATE 05/23/2005 - Other pulmonary embolism without acute cor pulmonale 01/27/2017 - Personal history of colonic polyps - Prothrombin S93575H mutation (HCC) 11/05/2017 - Pulmonary embolism (HCC) - Pulmonary hypertension (HCC) 01/30/2017 - PULMONARY NODULES 06/03/2006 - Rosacea 02/25/2007 - Skin cancer of face [place]. - Unspecified asthma(493.90) PAST SURGICAL HISTORY Procedure Laterality Date - APPENDECTOMY 11-02-14 - COLONOS W/REM POLYP SNARE 07/25/05 - COLONOS W/REM POLYP SNARE 01/17/11 - COLONOSCOP W/ OR W/O [facility] SPEC 07/28/14 Colonoscopy - COLONOSCOP W/ OR W/O [facility] SPEC 12-20-15 - COLONOSCOPY - DIAGNOSTIC 03/02/2003 - DEBRIDEMENT WOUND 21+ SQ CM Left 09/12/2017 Left leg abcess s/pt traumatic wound. - EGD W/O OR W/BRUSH/WASH 04/17/15 EGD - KNEE SCOPE,DIAGNOSTIC 1998 LEFT - LAP COLECTMY W/ILEUM/ILEOCOL 11-02-14 WITH INCISIONAL HERNIA REPAIR - LAPAROSCOPIC HEMICOLECTOMY 11-02-14 - REMV PROSTATE,PERINEAL,RADICAL 11/28/2003 - REPAIR ROTATOR CUFF,ACUTE 03/04/2002 Rotator cuff repair Left - REPAIR UMBILICAL BAKARI,5+Y/O,REDUC 03/01/1996 Hernia repair, umbilical >5yr - REVISE MEDIAN N/CARPAL TUNNEL SURG Bilateral 1993 Carpal tunnel decomp; , - TOTAL HIP REPLACEMENT 07/26/2013 Hip replacement, total, LEFT, Dr. Rojas - TOTAL KNEE REPLACEMENT 06/2008 left knee ALLERGIES Indocin [Indomethacin Sodium]; Percocet [Oxycodone-Acetaminophen]; Seasonal Allergies -This section reviewed with patient, no changes MEDICATIONS ADVAIR HFA 230-21 mcg/actuation inhaler take 2 inhalations by mouth twice a day Rinse mouth after use albuterol (PROVENTIL) 2.5 mg /3 mL (0.083 %) nebulizer solution Use 3 mL via nebulizer every 4 hours as needed. Diagnosis: severe persistent asthma J45.50 albuterol HFA (PROVENTIL HFA) 90 mcg/actuation inhaler Inhale 2 Puffs as instructed. albuterol HFA (PROVENTIL HFA, VENTOLIN HFA) 90 mcg/actuation inhaler Inhale 2 Puffs as instructed every 4 hours as needed (for cough, wheezing, chest tightness or shortness of breath. Use with spacer. ). aspirin, enteric coated (ASPIRIN, ENTERIC COATED) 81 mg EC tablet Take 81 mg by mouth once daily. atorvastatin (LIPITOR) 10 mg tablet take 1 tablet by mouth at bedtime azelastine (ASTELIN,ASTEPRO) 0.1% nasal spray instill 2 sprays into each nostril twice a day azithromycin (ZITHROMAX Z-DONNA) 250 mg tablet TAKE 2 TABS ON THE FIRST DAY, THEN ONE TAB DAILY FOR 4 DAYS. cephALEXin (KEFLEX) 500 mg capsule Take 1 capsule by mouth three times daily for 10 days. EPINEPHrine (EPIPEN) 0.3 mg/0.3 mL auto-injector Inject 0.3 mL intramuscularly as needed. fluticasone (FLONASE) 50 mcg/actuation nasal spray instill 2 sprays into each nostril twice a day furosemide (LASIX) 20 mg tablet Take 1 tablet by mouth once daily. guaiFENesin (MUCINEX) 600 mg 12 hr tablet Take 1 tablet by mouth twice daily. ipratropium (ATROVENT) 0.02 % nebulizer solution 500 mcg (one ampule) nebulized four times a day as needed. ipratropium-albuterol (DUONEB) 0.5 mg-3 mg(2.5 mg base)/3 mL nebu Inhale 3 mL as instructed four times daily as needed. by nebulizer over 5 to 15 minutes. leflunomide (ARAVA) 10 mg tablet Take 10 mg by mouth once daily. lisinopril (ZESTRIL, PRINIVIL) 20 mg tablet Take 1 tablet by mouth once daily. montelukast (SINGULAIR) 10 mg tablet Take 1 tablet by mouth daily at bedtime. mupirocin (BACTROBAN) 2 % cream Apply 1 application to affected area three times daily for 10 days. Location: penis nitroglycerin sublingual (NITROQUICK) 0.4 mg SL tablet Dissolve 1 tablet under the tongue every 5 minutes as needed for Chest Pain. nystatin (MYCOSTATIN) 100,000 unit/mL suspension Swish and swallow 5 ml four times a day for thrush nystatin-triamcinolone (MYCOLOG II) cream Apply 1 application to affected area twice daily as needed. Genital rash. omeprazole (PRILOSEC) 20 mg capsule Take 1 capsule by mouth daily before breakfast. 1/2 hr before meal. polyethylene glycol 3350 (MIRALAX, GLYCOLAX) 17 gram/dose powder Take 17 g by mouth once daily. Take one (1) capful in 8oz of liquid each day. sertraline (ZOLOFT) 100 mg tablet Take 1.5 tablets by mouth once daily. SPIRIVA WITH HANDIHALER 18 mcg inhalation capsule inhale the contents of one capsule in the handihaler once daily VENTOLIN HFA 90 mcg/actuation inhaler inhale 2 puffs every 4 hours if needed Vitamin A-Vit C-Vit E-Zinc-Cu (OCUVITE PRESERVISION) ORAL Tab Take one(1) tablet two(2) times daily. FAMILY HISTORY Problem Relation Age of Onset - Diabetes Father - Colon Cancer Father - Asthma Mother - Colon Cancer Sister - Diabetes Sister - Colon Cancer Other Social History Substance Use Topics - Smoking status: Never Smoker - Smokeless tobacco: Never Used Comment: Father smoked in childhood home. No household smoke exposure since. 05/2014. - Alcohol use No Review of Systems Constitutional: Negative for chills, fever and weight loss. Respiratory: Negative for cough, shortness of breath and wheezing. Cardiovascular: Negative for chest pain and palpitations. Gastrointestinal: Negative for abdominal pain, blood in stool, constipation, diarrhea, heartburn, melena, nausea and vomiting. Genitourinary: Negative for dysuria, flank pain, frequency, hematuria and urgency. Objective Blood pressure 112/76, pulse 97, temperature 36.8 ?C (98.2 ?F), temperature source Tympanic, resp. rate 14, weight 93.9 kg (207 lb). Component Latest Ref Rng AND Units 03/25/2018 Glucose 74 - 99 mg/dL 146 (H) BUN 7 - 21 mg/dL 24 (H) Creatinine 0.73 - 1.22 mg/dL 1.11 Sodium 136 - 144 mmol/L 136 Potassium 3.7 - 5.1 mmol/L 4.5 Chloride 97 - 105 mmol/L 105 CO2 22 - 30 mmol/L 22 Anion Gap 9 - 18 mmol/L 9 Calcium 8.5 - 10.2 mg/dL 9.9 eGFR- >60 eGFR-All Other Races . >60 Physical Exam Constitutional: He is well-developed, well-nourished, and in no distress. Non-toxic appearance. He does not have a sickly appearance. No distress. Abdominal: Soft. Normal appearance and bowel sounds are normal. There is no hepatosplenomegaly. There is no tenderness. There is no CVA tenderness. Genitourinary: Genitourinary Comments: Sore on right/under side of penis, seen after retraction of foreskin. Mild surrounding erythema, no exudates. No penile drainage noted. Skin: Skin is warm and dry. ASSESSMENT/PLAN: 1. Sore of penis - ICD9: 607.89, ICD10: N48.89 Hygiene discussed Use medication as prescribed Keep follow up with urologist this week - CEPHALEXIN 500 MG CAPSULE - MUPIROCIN 2 % TOPICAL CREAM Prescription instructions reviewed with patient as applicable. Patient advised if symptoms do not improve or if symptoms worsen sooner, to contact the office for further evaluation by their primary care physician. Potential red flag symptoms discussed with the patient. Reviewed appropriate action plan to take if red flag symptoms occur. Patient agreeable to treatment plan. Shant Gutierrez APRN.[facility] Referring Provider: SELF [[id number]] Allergies As of Date: 05/17/2018 Noted Allergy Reaction INDOCIN (INDOMETHACIN SODIUM) 04/01/2011 14 - Other: See Comments Comments: Wheezing, can take naprosyn PERCOCET (OXYCODONE-ACETAMINOPHEN)01/08/2005 9 - Itching SEASONAL ALLERGIES 11/12/2012 14 - Other: See Comments Comments: Cat, Goats, Dust mites, molds, trees, grasses, weed, ragweed Date Reviewed: 05/17/2018 Reviewed by: Shant (Petros) - Fully Assessed Reason for Visit: Penis/Scrotum Problem [80] Cmt: sore on foreskin Primary Visit Diagnosis:Sore of penis [N48.89] Order(s):cephALEXin (KEFLEX) 500 mg capsuleTake 1 capsule by mouth three times daily for 10 days.Disp: 30 capsuleRfl: 0 mupirocin (BACTROBAN) 2 % creamApply 1 application to affected area three times daily for 10 days. Location: penisDisp: 22 gRfl: 0 Prescriptions as of 05/17/2018 Sig: ADVAIR HFA 230 MCG-21 MCG/ACT* take 2 inhalations by mouth t* ALBUTEROL SULFATE 2.5 MG/3 ML* Use 3 mL via nebulizer every * ALBUTEROL SULFATE HFA 90 MCG/* Inhale 2 Puffs as instructed. ALBUTEROL SULFATE HFA 90 MCG/* Inhale 2 Puffs as instructed * ASPIRIN 81 MG TABLET,DELAYED * Take 81 mg by mouth once christiano* ATORVASTATIN 10 MG TABLET take 1 tablet by mouth at bed* AZELASTINE 137 MCG (0.1 %) NA* instill 2 sprays into each no* AZITHROMYCIN 250 MG TABLET TAKE 2 TABS ON THE FIRST DAY,* CEPHALEXIN 500 MG CAPSULE Take 1 capsule by mouth three* EPINEPHRINE 0.3 MG/0.3 ML INJ* Inject 0.3 mL intramuscularly* FLUTICASONE 50 MCG/ACTUATION * instill 2 sprays into each no* FUROSEMIDE 20 MG TABLET Take 1 tablet by mouth once d* GUAIFENESIN ER 600 MG TABLET,* Take 1 tablet by mouth twice * IPRATROPIUM BROMIDE 0.02 % SO* 500 mcg (one ampule) nebulize* IPRATROPIUM-ALBUTEROL 0.5 MG-* Inhale 3 mL as instructed fou* LEFLUNOMIDE 10 MG TABLET Take 10 mg by mouth once christiano* LISINOPRIL 20 MG TABLET Take 1 tablet by mouth once d* MONTELUKAST 10 MG TABLET Take 1 tablet by mouth daily * MUPIROCIN 2 % TOPICAL CREAM Apply 1 application to affect* NITROGLYCERIN 0.4 MG SUBLINGU* Dissolve 1 tablet under the t* NYSTATIN 100,000 UNIT/ML ORAL* Swish and swallow 5 ml four t* NYSTATIN-TRIAMCINOLONE 100,00* Apply 1 application to affect* OMEPRAZOLE 20 MG CAPSULE,ALEX* Take 1 capsule by mouth daily* POLYETHYLENE GLYCOL 3350 17 G* Take 17 g by mouth once daily* SERTRALINE 100 MG TABLET Take 1.5 tablets by mouth onc* SPIRIVA WITH HANDIHALER 18 MC* inhale the contents of one ca* VENTOLIN HFA 90 MCG/ACTUATION* inhale 2 puffs every 4 hours * PRESERVISION AREDS 7,160 UNIT* Take one(1) tablet two(2) link* Problem List As Of Date 05/17/2018 Noted Resolved Asthma [J45.909] 08/25/2017 CHRONIC RHINITIS [J31.0] BPH without obstruction/lower urinary tract sym* ANXIETY STATE NOS [F41.1] 08/05/2014 Depression with anxiety [F41.8] Diverticulosis of colon (without mention of hem* 10/06/2012 ESOPHAGEAL REFLUX [K21.9] Internal hemorrhoids without mention of complic* 08/30/2010 Malignant neoplasm of prostate (HCC) [C61] INVALID FOR*08/05/2014 MACULAR DEGENERATION NOS [H35.30] Other specified iron deficiency anemias [D50.8] INVALID FOR*08/30/2010 Diabetes mellitus type 2, controlled, without c*INVALID FOR* Hyperlipidemia [E78.5] INVALID FOR* Personal history of colonic polyps [Z86.010] INVALID FOR*09/30/2011 More... FAMILY HX COLON CANCER [Z80.0] INVALID FOR*08/25/2017 PULMONARY NODULES [J98.4] INVALID FOR*10/06/2012 More... 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] INVALID FOR* Essential hypertension [I10] INVALID FOR* Generalized osteoarthritis of multiple sites [M*INVALID FOR* Benign neoplasm of rectum and anal canal [D12.8*INVALID FOR*10/06/2012 Benign neoplasm of colon [D12.6] INVALID FOR* Gout [M10.9] INVALID FOR* Venous insufficiency of leg [I87.2] INVALID FOR* Iron deficiency anemia due to chronic blood los*INVALID FOR* Inflammatory polyarthropathy of multiple sites *INVALID FOR* Unsteady gait [R26.81] INVALID FOR* Uncomplicated severe persistent asthma [J45.50] INVALID FOR* Other pulmonary embolism without acute cor pulm*INVALID FOR*12/29/2017 Pulmonary hypertension (HCC) [I27.20] INVALID FOR* Memory disturbance [R41.3] INVALID FOR* Obesity, Class I, BMI 30-34.9 E66.9 [E66.9] INVALID FOR* Open wound of left lower extremity [S81.802A] INVALID FOR* Prothrombin [id number] mutation (HCC) [D68.52] INVALID FOR*12/29/2017 Allergic rhinitis due to cats [J30.81] INVALID FOR* Allergic rhinitis due to dust mite [J30.89] INVALID FOR* Allergic rhinitis due to fungal spores [J30.89] INVALID FOR* Seasonal allergic rhinitis due to pollen [J30.1]INVALID FOR* Other instructions from your clinician: ASSESSMENT/PLAN: 1. Sore of penis - ICD9: 607.89, ICD10: N48.89 Hygiene discussed Use medication as prescribed Keep follow up with urologist this week - CEPHALEXIN 500 MG CAPSULE - MUPIROCIN 2 % TOPICAL CREAM Prescriptions ordered this encounter Disp Refills Start End CEPHALEXIN 500 MG CAPSULE 30 c* 0 05/17/2018 05/27/2018 Route: ORAL Sig: Take 1 capsule by mouth three times daily for 10 days. MUPIROCIN 2 % TOPICAL CREAM 22 g 0 05/17/2018 05/27/2018 Route: TOPICAL Sig: Apply 1 application to affected area three times daily for 10 days. Location: [facility] Encounter Status:Closed by SHANT GUTIERREZ CNP on 05/17/18 CNOV Observed: 05/14/2018 Status: COMPLETED Source: [place] 3:30 PM [facility] REPOSITORY Office Visit ([facility]) CARISSA YIP ([id number]) 1940 M Date Time Provider Department 05/14/18 3:30 PM [facility]EN[facility] During your visit today, we recorded the following information about you: Pulse Respiration Blood pressure Weight 97/minute 16/minute 138/80 93 kg Leni Mcbride PA-C 05/14/2018 2:[address] [facility] [place], 05/14/18: INTERVAL HISTORY: The patient is here for follow up of asthma; the last Pulmonary Clinic visit was 03/30/18. The patient admits to compliance with prescribed maintenance Rx: Advair and Spiriva. There have been no ED visit(s) for the management of asthma exacerbation. No hospitalization(s) for management of asthma exacerbation. Has used no prednisone for the management of exacerbation. Increased to 3-4 nebulizers per day. Increased cough for 5 days. Cough is worse with laying down and waking him up at night. Dr. Verma had patient take Lasix 20 mg daily without any improvement in symptoms. No lower extremity edema. Variable wheezing. Exeritonal dyspnea progressed since last office visit. PMH: Updated with patient today. FAMH: Updated with patient today. SOCH: Updated with patient today. ROS: General: Generally feels ill. Appetite good. Weight stable. Eyes, Ears, nose, throat: No post nasal drip, rhinorrhea, purulent nasal discharge, epistaxis. No hoarseness. Vision stable. Cardiac: No angina, edema, orthopnea. GI: No heartburn, dysphagia, diarrhea. Uro/PUMP ERECTOR: No dysuria, hesitancy, nocturia. Musculoskeletal: No pain. Neuro: No headache, focal weakness, tremor. Skin: No rash. Otherwise negative. Immunization History Administered Date(s) Administered Influenza Seasonal - High Dose - Age 65+ 01/25/2014 01/20/2016 01/30/2017 02/09/2018 Influenza Seasonal Inj Age 3+ 02/01/2015 Influenza Vaccine, Split-Non Spec 03/17/2006 03/17/2007 03/23/2008 02/11/2009 03/08/2010 02/16/2011 02/21/2012 01/21/2013 Pneumococcal-13 Vac Conjugate 02/22/2015 10/10/2015 Pneumovax 06/04/2000 09/17/2010 TD Adult 11/10/2006 Tdap (Age 7+) 09/05/2017 Tetanus Diphtheria Booster (Age >7) Pres Free 02/22/2016 Zostavax 04/01/2011 Allergies were verified and updated, and medications were reconciled with the patient at this visit. PHYSICAL EXAMINATION: Pulse 97 Resp 16 Wt 205 lb (93.0kg) SpO2 95% Gen: No acute distress. Cooperative with examination. ENT: Nares clear. Oral hygeine good. Pharynx clear. Resp: No stridor, accessory respiratory muscle use. Right sided crackles. No wheezes. CV: Regular rythm. Heart tones normal. Radial pulses normal. Abd: Non distended. MSK: No kyphoscoliosis. Ext: Warm and well perfused. No cyanosis. Skin: No rash, eczema, urticaria. Neuro: Mental status normal. No tremor. DATA REVIEW: Oximetry, 05/14/18 InspO2* ? SpO2% ? ? HR Activity ?Feet ?Time ? MPH ?Flag RA ? 94 ? ? 93 resting RA ? 92 ? ?118 walking, usual pace ? ?544 ?3.00 ?2.06 RA ? 94 ? ?104 resting ? 1 min. post * RA = room air, NC2 = O2 by nasal cannula at 2 LPM, ? ? ?TT2=O2 by trans-tracheal catherter at 2 LPM, etc. IMPRESSION and RECOMMENDATIONS: Asthma, moderate to severe persistent, with acute exacerbation. 1. CXR today. Further recommendations to follow. 2. Azithromycin as directed. 2 tablets on day 1, then 1 tablet for 4 days. 3. Continue with maintenance medications. 4. Continue Albuterol HFA inhaler, 2 inhalations 10?15 minutes prior to activities associated with shortness of breath, and as needed for rescue relief of shortness of breath or wheezing, up to 4 times daily. 5. Mucinex 1-2 tablets twice daily to help clear secretions. 6. Based on oximetry today, you do not require supplemental oxygen. 7. Re-assess as scheduled, sooner if needed. I addressed the questions of the patient, and he expressed understanding and acceptance of my answers. Leni Mcbride PA-C [facility] [place] [address] [address] Leni Mcbride PA-C 05/14/2018 2:49 PM Signed Asthma, moderate to severe persistent, with acute exacerbation. 1. CXR today. Further recommendations to follow. 2. Azithromycin as directed. 2 tablets on day 1, then 1 tablet for 4 days. 3. Continue with maintenance medications. 4. Continue Albuterol HFA inhaler, 2 inhalations 10?15 minutes prior to activities associated with shortness of breath, and as needed for rescue relief of shortness of breath or wheezing, up to 4 times daily. 5. Mucinex 1-2 tablets twice daily to help clear secretions. 6. Based on oximetry today, you do not require supplemental oxygen. 7. Re-assess as scheduled, sooner if needed. Referring Provider: LAMBERT LARIOS [[id number]] Allergies As of Date: 05/14/2018 Noted Allergy Reaction INDOCIN (INDOMETHACIN SODIUM) 04/01/2011 14 - Other: See Comments Comments: Wheezing, can take naprosyn PERCOCET (OXYCODONE-ACETAMINOPHEN)01/08/2005 9 - Itching SEASONAL ALLERGIES 11/12/2012 14 - Other: See Comments Comments: Cat, Goats, Dust mites, molds, trees, grasses, weed, ragweed Date Reviewed: 05/14/2018 Reviewed by: Leni Mcbride - Fully Assessed Reason for Visit: Established Patient [175] Cmt: asthma Primary Visit Diagnosis:Moderate persistent asthma with acute exacerbation [J45.41] Other Visit Diagnoses:Dyspnea and respiratory abnormalities [R06.00, R06.89] Cough [R05] Order(s):XR CHEST 2V FRONTAL/LAT [[id number]] Order #: [id number] FUTURE azithromycin (ZITHROMAX Z-DONNA) 250 mg tabletTAKE 2 TABS ON THE FIRST DAY, THEN ONE TAB DAILY FOR 4 DAYS.Disp: 1 PackageRfl: 0 Prescriptions as of 05/14/2018 Sig: ADVAIR HFA 230 MCG-21 MCG/ACT* take 2 inhalations by mouth t* ALBUTEROL SULFATE 2.5 MG/3 ML* Use 3 mL via nebulizer every * ALBUTEROL SULFATE HFA 90 MCG/* Inhale 2 Puffs as instructed. ALBUTEROL SULFATE HFA 90 MCG/* Inhale 2 Puffs as instructed * ASPIRIN 81 MG TABLET,DELAYED * Take 81 mg by mouth once christiano* ATORVASTATIN 10 MG TABLET take 1 tablet by mouth at bed* AZELASTINE 137 MCG (0.1 %) NA* instill 2 sprays into each no* EPINEPHRINE 0.3 MG/0.3 ML INJ* Inject 0.3 mL intramuscularly* FLUTICASONE 50 MCG/ACTUATION * instill 2 sprays into each no* FUROSEMIDE 20 MG TABLET Take 1 tablet by mouth once d* GUAIFENESIN ER 600 MG TABLET,* Take 1 tablet by mouth twice * IPRATROPIUM BROMIDE 0.02 % SO* 500 mcg (one ampule) nebulize* IPRATROPIUM-ALBUTEROL 0.5 MG-* Inhale 3 mL as instructed fou* LEFLUNOMIDE 10 MG TABLET Take 10 mg by mouth once christiano* LISINOPRIL 20 MG TABLET Take 1 tablet by mouth once d* MONTELUKAST 10 MG TABLET Take 1 tablet by mouth daily * NYSTATIN 100,000 UNIT/ML ORAL* Swish and swallow 5 ml four t* NYSTATIN-TRIAMCINOLONE 100,00* Apply 1 application to affect* OMEPRAZOLE 20 MG CAPSULE,ALEX* Take 1 capsule by mouth daily* POLYETHYLENE GLYCOL 3350 17 G* Take 17 g by mouth once daily* SERTRALINE 100 MG TABLET Take 1.5 tablets by mouth onc* SPIRIVA WITH HANDIHALER 18 MC* inhale the contents of one ca* VENTOLIN HFA 90 MCG/ACTUATION* inhale 2 puffs every 4 hours * PRESERVISION AREDS 7,160 UNIT* Take one(1) tablet two(2) link* AZITHROMYCIN 250 MG TABLET TAKE 2 TABS ON THE FIRST DAY,* NITROGLYCERIN 0.4 MG SUBLINGU* Dissolve 1 tablet under the t* Problem List As Of Date 05/14/2018 Noted Resolved Asthma [J45.909] 08/25/2017 CHRONIC RHINITIS [J31.0] BPH without obstruction/lower urinary tract sym* ANXIETY STATE NOS [F41.1] 08/05/2014 Depression with anxiety [F41.8] Diverticulosis of colon (without mention of hem* 10/06/2012 ESOPHAGEAL REFLUX [K21.9] Internal hemorrhoids without mention of complic* 08/30/2010 Malignant neoplasm of prostate (HCC) [C61] INVALID FOR*08/05/2014 MACULAR DEGENERATION NOS [H35.30] Other specified iron deficiency anemias [D50.8] INVALID FOR*08/30/2010 Diabetes mellitus type 2, controlled, without c*INVALID FOR* Hyperlipidemia [E78.5] INVALID FOR* Personal history of colonic polyps [Z86.010] INVALID FOR*09/30/2011 More... FAMILY HX COLON CANCER [Z80.0] INVALID FOR*08/25/2017 PULMONARY NODULES [J98.4] INVALID FOR*10/06/2012 More... 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] INVALID FOR* Essential hypertension [I10] INVALID FOR* Generalized osteoarthritis of multiple sites [M*INVALID FOR* Benign neoplasm of rectum and anal canal [D12.8*INVALID FOR*10/06/2012 Benign neoplasm of colon [D12.6] INVALID FOR* Gout [M10.9] INVALID FOR* Venous insufficiency of leg [I87.2] INVALID FOR* Iron deficiency anemia due to chronic blood los*INVALID FOR* Inflammatory polyarthropathy of multiple sites *INVALID FOR* Unsteady gait [R26.81] INVALID FOR* Uncomplicated severe persistent asthma [J45.50] INVALID FOR* Other pulmonary embolism without acute cor pulm*INVALID FOR*12/29/2017 Pulmonary hypertension (HCC) [I27.20] INVALID FOR* Memory disturbance [R41.3] INVALID FOR* Obesity, Class I, BMI 30-34.9 E66.9 [E66.9] INVALID FOR* Open wound of left lower extremity [S81.802A] INVALID FOR* 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 1. CXR today. Further recommendations to follow. 2. Azithromycin as directed. 2 tablets on day 1, then 1 tablet for 4 days. 3. Continue with maintenance medications. 4. Continue Albuterol HFA inhaler, 2 inhalations 10?15 minutes prior to activities associated with shortness of breath, and as needed for rescue relief of shortness of breath or wheezing, up to 4 times daily. 5. Mucinex 1-2 tablets twice daily to help clear secretions. 6. Based on oximetry today, you do not require supplemental oxygen. 7. Re-assess as scheduled, sooner if needed. Prescriptions ordered this encounter Disp Refills Start End AZITHROMYCIN 250 MG TABLET 1 Pa* 0 05/14/2018 Sig: TAKE 2 TABS ON THE FIRST DAY, THEN ONE TAB DAILY FOR 4 DAYS. Encounter Status:Closed by LENI MCBRIDE on 05/14/18 XR CHEST 2V FRONTAL/LAT Observed: 05/14/2018 Status: F Source: [place] 3:14 PM [facility] REPOSITORY * * *Final Report* * * DATE OF EXAM: May 14 2018 3:14PM WRX [id number] - XR CHEST 2V FRONTAL/LAT / PROCEDURE REASON: multiple diagnoses * * * * Physician Interpretation * * * * EXAMINATION: CHEST RADIOGRAPH (2 VIEW FRONTAL and LATERAL) CLINICAL HISTORY: Dyspnea and respiratory abnormalities Dyspnea and respiratory abnormalities MQ: XC2_5 Comparison: Comparison is made to prior chest dated 04 March 2018 , 20 February 2018 and a remote study dated 27 January 2017 RESULT: Lines, tubes, and devices: None. Lungs and pleura: Bilateral chronic interstitial lung changes with bibasilar fibrotic scarring and multifocal fibrocalcific plaque again noted. Vague parenchymal opacity at the left lung base with some probable associated atelectasis appears improved from the prior examination and most consistent with improving pneumonia. There may be trace pleural fluid collections but there is no evidence of overt pulmonary edema. Cardiomediastinal silhouette: Stable cardiomediastinal silhouette. Other: The bony structures are intact IMPRESSION: Chronic interstitial lung changes with suspected improving left lower lobe pneumonia. Orthotics Prosthetics Assistant: PSCB Transcribe Date/Time: May 15 2018 1:26P Dictated by : TALA GONZALEZ MD This examination was interpreted and the report reviewed and electronically signed by: TALA GONZALEZ MD on May 15 2018 1:30PM EST [id number] PROGRESS Observed: 05/14/2018 Status: COMPLETED Source: [place] 3:13 PM [facility] REPOSITORY HNO ID: [id number] Author: Janett Loving (Rt) Blake Olivera Service: (none) Author Type: Mold Tooling Technician Type: Progress Notes Filed: 05/14/2018 3:14 PM Note Text: Radiology Service Progress Note PATIENT NAME: Carissa Yip DATE OF SERVICE: May 14, 2018 TIME: 3:13 PM PATIENT IDENTITY VERIFICATION COMPLETED USING TWO (2) METHODS: Patient confirmed name verbally and Date of . PATIENT GENDER DATA: Male PATIENT RELEVANT IMPLANT DATA REVIEWED: Not Applicable RADIOLOGY DEPARTMENT: General X-ray: Exam(s) Completed: Chest X-Ray PERIPHERAL IV DATA: Not applicable SIGNED BY: RT Isatu May 14, 2018 3:13 PM PROGRESS Observed: 05/14/2018 Status: COMPLETED Source: [place] 2:17 PM [facility] REPOSITORY HNO ID: [id number] Author: Leni Mcbride Service: (none) Author Type: Physician Truck Repair Supervisor Type: Progress Notes Filed: 05/14/2018 2:49 PM Note Text: [facility] [place], 05/14/18: INTERVAL HISTORY: The patient is here for follow up of asthma; the last Pulmonary Clinic visit was 03/30/18. The patient admits to compliance with prescribed maintenance Rx: Advair and Spiriva. There have been no ED visit(s) for the management of asthma exacerbation. No hospitalization(s) for management of asthma exacerbation. Has used no prednisone for the management of exacerbation. Increased to 3-4 nebulizers per day. Increased cough for 5 days. Cough is worse with laying down and waking him up at night. Dr. Verma had patient take Lasix 20 mg daily without any improvement in symptoms. No lower extremity edema. Variable wheezing. Exeritonal dyspnea progressed since last office visit. PMH: Updated with patient today. FAMH: Updated with patient today. SOCH: Updated with patient today. ROS: General: Generally feels ill. Appetite good. Weight stable. Eyes, Ears, nose, throat: No post nasal drip, rhinorrhea, purulent nasal discharge, epistaxis. No hoarseness. Vision stable. Cardiac: No angina, edema, orthopnea. GI: No heartburn, dysphagia, diarrhea. Uro/PUMP ERECTOR: No dysuria, hesitancy, nocturia. Musculoskeletal: No pain. Neuro: No headache, focal weakness, tremor. Skin: No rash. Otherwise negative. Immunization History Administered Date(s) Administered Influenza Seasonal - High Dose - Age 65+ 01/25/2014 01/20/2016 01/30/2017 02/09/2018 Influenza Seasonal Inj Age 3+ 02/01/2015 Influenza Vaccine, Split-Non Spec 03/17/2006 03/17/2007 03/23/2008 02/11/2009 03/08/2010 02/16/2011 02/21/2012 01/21/2013 Pneumococcal-13 Vac Conjugate 02/22/2015 10/10/2015 Pneumovax 06/04/2000 09/17/2010 TD Adult 11/10/2006 Tdap (Age 7+) 09/05/2017 Tetanus Diphtheria Booster (Age >7) Pres Free 02/22/2016 Zostavax 04/01/2011 Allergies were verified and updated, and medications were reconciled with the patient at this visit. PHYSICAL EXAMINATION: Pulse 97 Resp 16 Wt 205 lb (93.0kg) SpO2 95% Gen: No acute distress. Cooperative with examination. ENT: Nares clear. Oral hygeine good. Pharynx clear. Resp: No stridor, accessory respiratory muscle use. Right sided crackles. No wheezes. CV: Regular rythm. Heart tones normal. Radial pulses normal. Abd: Non distended. MSK: No kyphoscoliosis. Ext: Warm and well perfused. No cyanosis. Skin: No rash, eczema, urticaria. Neuro: Mental status normal. No tremor. DATA REVIEW: Oximetry, 05/14/18 InspO2* ? SpO2% ? ? HR Activity ?Feet ?Time ? MPH ?Flag RA ? 94 ? ? 93 resting RA ? 92 ? ?118 walking, usual pace ? ?544 ?3.00 ?2.06 RA ? 94 ? ?104 resting ? 1 min. post * RA = room air, NC2 = O2 by nasal cannula at 2 LPM, ? ? ?TT2=O2 by trans-tracheal catherter at 2 LPM, etc. IMPRESSION and RECOMMENDATIONS: Asthma, moderate to severe persistent, with acute exacerbation. 1. CXR today. Further recommendations to follow. 2. Azithromycin as directed. 2 tablets on day 1, then 1 tablet for 4 days. 3. Continue with maintenance medications. 4. Continue Albuterol HFA inhaler, 2 inhalations 10?15 minutes prior to activities associated with shortness of breath, and as needed for rescue relief of shortness of breath or wheezing, up to 4 times daily. 5. Mucinex 1-2 tablets twice daily to help clear secretions. 6. Based on oximetry today, you do not require supplemental oxygen. 7. Re-assess as scheduled, sooner if needed. I addressed the questions of the patient, and he expressed understanding and acceptance of my answers. Leni Mcbride PA-C [facility] [place] [facility] [place] [address] [place] [id number] STRESS REPORT Observed: 05/04/2018 Status: F Source: [place] 12:22 PM [facility] REPOSITORY [facility] Cardiovascular Services [address] [place] [address] MR#: [id number] Acct: [id number] Name: CARISSA YIP Sr. Rep #: [id number] : 1940 77 From: Ke Garcia MD Primary Care: Lambert Larios MD Status: REG CLI Ordering Dr: Sex: M C Stress Test Report Exercise stress test. 77-year-old man with a history of shortness of breath and pulmonary hypertension. Medications: Lisinopril, statin. Stress protocol: Resting EKG demonstrates normal sinus rhythm with a rate of 83 bpm normal intervals are noted resting blood pressure 126/82 mmHg. Patient exercised according to regular [place] protocol for total duration of minute and 14 seconds. The maximum heart rate attained was 118 bpm which was 83% of maximum predicted heart rate the maximum workload was 3.2 metabolic equivalents. The patient maintained sinus rhythm throughout the recording. At rest there were no ST or T wave changes noted suggest ischemia peak exercise upsloping ST changes only were noted with normally the criteria for ischemia. The resting blood pressure 126/82 with a final blood pressure 126/72. The peak blood pressure 164/80. The test was terminated due to marked shortness of breath. Conclusion: Exercise stress test with no EKG criteria for ischemia at a low workload. Marked functional aerobic impairment. The low workload noted would affect sensitivity for detection of ischemia. 05/04/18 1222 <Electronically signed by Ke Garcia MD> Date Ke Garcia MD CC: Reg Verma MD; Lambert Larios MD Date Dictated: 05/04/18 1220 Date Transcribed: 05/04/18 1220 Orthotics Prosthetics Assistant: CO Signed 12 LEAD ELECTROCARDIOGRAM Observed: 05/04/2018 Status: F Source: [place] 7:38 AM [facility] REPOSITORY [facility] Cardiovascular Services [address] [place] [address] 12 Lead EKG 05/01/18 1107 MR#: [id number] Acct: [id number] Name: ALANENZOCARISSA Sr. Rep #: [id number] : 1940 77 From: Ke Garcia MD Attending Dr: Status: DEP ER Ordering Dr: Sandor Sebastian MD Date: 05/01/18 Location: ED Sex: M C Admitted: Test Reason : CHEST PAIN Blood Pressure : / mmHG Vent. Rate : 100 BPM Atrial Rate : 087 BPM P-R Int : 140 ms QRS Dur : 090 ms QT Int : 354 ms P-R-T Axes : 060 067 057 degrees QTc Int : 456 ms Normal sinus rhythm Otherwise normal ECG Confirmed by KE GARCIA MD ([id number]), graphics editor YARON WOODS ([id number]) on 05/04/2018 7:38:43 AM Referred By: DC Confirmed By:KE GARCIA MD 05/04/18 0738 Date Ke Garcia MD CC: Sandor Sebastian MD; Lambert Larios MD Signed EMERGENCY DEPARTMENT Observed: 05/01/2018 Status: F Source: [place] SUMMARY 2:57 PM [facility] REPOSITORY [facility] Medical Records Department [address] [place] [address] Emergency Department Summary 05/01/18 1126 MR#: [id number] Acct: [id number] Name: CARISSA YIP . Rep #: [id number] : 1940 77 From: Sandor Sebastian MD PCP: Lambert Larios MD Status: DEP ER - ER Visit Summary Date of Service: 05/01/18 Chief Complaint: Chest pain History of Present Illness: The patient is a 77 M who presents with chest pain. He has had intermittent episodes of chest pain since last night. It is across his chest. It did radiate to his left arm and left jaw. He has associated shortness of breath. Nothing makes his pain better or worse. He states after these episodes he has felt rundown and tired. He has no history of coronary artery disease but he is scheduled to have a stress test in 3 days. Physical Examination: Vital signs reviewed. HEENT exam unremarkable. Heart is regular rate and rhythm without murmurs. Lungs are clear to auscultation. Abdomen is soft and nontender. Extremities reveal no edema. Peripheral pulses are equal. Skin exam normal. Neurologic exam normal. Test Results: EKG is sinus rhythm with a rate of 100. Nonspecific ST and T wave changes noted. Chest x-ray reveals chronic changes. Hemoglobin 11.5. Troponin normal. Creatinine 1.57 Emergency Department Course and Treatment: Patient was given aspirin. Upon reevaluation he is pain-free. At this time I do not feel this is cardiac in nature. He has a stress test scheduled in 3 days. I feel that he can follow-up at that time for this. Treatment Plan: [] Disposition: Discharge Impression: Chest pain This note was generated with [employer] dictation software. It may contain incorrect words, spelling, and punctuation that were not noted in review of the chart prior to signing ED Disposition - Plan for ED Patient: Disposition: Home or Assisted Living Chief Complaint: Chest Pain Instructions: ED Chest Pain NonCardiac Referrals: Lambert Larios MD [Primary Care Provider] - What to do if you have Problems For any increased pain, shortness of breath, bleeding, nausea or vomiting, chest pain, or any unexpected problems, contact your Primary Care Provider. Call [facility] ([phone]) or report to the closest Emergency Room. Call 911 if necessary. 05/01/18 1957 <Electronically signed by Sandor Sebastian MD> Date Sandor Sebastian MD Cosigner Signature (If Indicated): Date CC: Lambert Larios MD DISCHARGE INSTRUCTION Observed: 05/01/2018 Status: F Source: [place] 1:54 PM [facility] REPOSITORY [facility] Medical Records Department [address] [place] [address] Discharge Instruction 05/01/18 1353 MR#: [id number] Acct: [id number] Name: ALANENZOCARISSA Sr. Rep #: [id number] : 1940 77 From: Sandor Sebastian MD PCP: Lambert Larios MD Status: REG ER ED Disposition - Plan for ED Patient: Disposition: Home or Assisted Living Chief Complaint: Chest Pain Instructions: ED Chest Pain NonCardiac Referrals: Lambert Larios MD [Primary Care Provider] - What to do if you have Problems For any increased pain, shortness of breath, bleeding, nausea or vomiting, chest pain, or any unexpected problems, contact your Primary Care Provider. Call [facility] ([phone]) or report to the closest Emergency Room. Call 911 if necessary. 05/01/18 1354 <Electronically signed by Sandor Sebastian MD> Date Sandor Sebastian MD Cosigner Signature (If Indicated): Date CC: Lambert Larios MD CBC W/DIFF, AUTOMATED Collected: 05/01/2018 Status: F Source: [place] 11:18 AM [facility] REPOSITORY TYPE CODE TESTS RESULT OUT OF RANGE REFERENCE UNITS LAB L100.1000 4.4-11.0 K/mm3 Normal WBC 6.9 LAB L100.1200 4.6-6.2 M/mm3 Low RBC 4.21 LAB L100.1300 13.0-16.5 g/dl Low HGB 11.5 LAB L100.1400 40-54 % Low HCT 35.9 LAB L100.1500 80-94 fL Normal MCV 85.3 LAB L100.1600 27.0-32.0 pg Normal MCH 27.3 LAB L100.1700 32-36 g/gl Normal MCHC 32.0 LAB L100.1810 11.6-14.6 % High RDW CV 16.9 LAB L100.1820 35.1-43.9 fl High RDW SD 53.5 LAB L100.1900 150-450 K/mm3 Normal PLT 177 LAB L100.2000 6.2-12.0 fl Normal MPV 9.3 LAB L100.2100 47-70 % High NEUT% 76.1 LAB L100.2200 19-41 % Low LY% 13.6 LAB L100.2300 0-10 % Normal MONO% 8.6 LAB L100.2400 0-5 % Normal EO% 1.6 LAB L100.2500 0-1 % Normal BASO% 0.0 LAB L100.2550 0.0-0.9 % Normal IM GRAN % 0.100 Result Comment: IG% - Immature Granulocytes (promyelocytes, myelocytes and metamyelocytes) > 1% indicates that a LEFT SHIFT is Present. LAB L100.2620 2.0-7.7 X10 3/uL Normal Absolute Neut 5.2 LAB L100.2720 0.83-4.51 X10 3/ul Normal Absolute Lymph 0.94 Performed By: #### L100.0100 #### [facility] [address] [place], [address] BASIC METABOLIC Collected: 05/01/2018 Status: F Source: [place] PROFILE (BMP) 11:18 AM [facility] REPOSITORY TYPE CODE TESTS RESULT OUT OF RANGE REFERENCE UNITS LAB L501.0100 74-106 mg/dL High GLU 117 Result Comment: Fasting Glucose result from 100 to 125 mg/dL suggests IMPAIRED HOMEOSTASIS per A.D.A. criteria. Please note revised GLUCOSE reference range effective 2017. LAB L501.1000 7-18 mg/dL High BUN 48 LAB L501.1100 0.70-1.30 mg/dL High CREAT,SERUM 1.57 Result Comment: The validity of the calculated GFR AND GFRAA in patients over 70 years has not been determined. Clinical correlation is essential. LAB L501.1110 >60 mL/min Low EST GFR 46 Result Comment: Non- GFR Calc LAB L501.1115 >60 mL/min Low EST GFR - AA 55 Result Comment: GFR Calc LAB L501.1255 ml/min Normal Estimated CRCL 33.19 LAB L501.1300 10-20 RATIO High BUN/CRE 30.6 LAB L501.2200 8.5-10 mg/dL Normal .1 CA 9.1 LAB L501.5300 136-14 mmol/L Normal 5 NA 138 LAB L501.5600 3.5-5. mmol/L Normal 1 K 5.0 LAB L501.5900 98-107 mmol/L High CL 108 LAB L501.6100 21.0-3 mmol/L Normal 2.0 CO2 22.0 LAB L501.6200 5-15 Normal GAP 8 Performed By: #### L500.2500, L501.4010 #### [facility] [address] [place], [address] TROPONIN-I Collected: 05/01/2018 Status: F Source: [place] 11:18 AM [facility] [place] REPOSITORY TYPE CODE TESTS RESULT OUT OF RANGE REFERENCE UNITS LAB L501.4010 <0.045 ng/mL Normal < 0.015 TROPONIN-I Result Comment: TROPONIN-I EXPECTED VALUES <0.045 Negative 0.045 - 0.590 Consistent with Cardiac Damage > OR = 0.600 Critical Value Not every elevated troponin is indicative of ND. These values should be used with clinical judgement in examining the patient's clinical picture for diagnosis. To establish a diagnosis of ND versus myocardial injury, there must be a demonstrated rise and/or fall in the troponin values, in addition to ischemic symptoms, EKG changes, new regional wall motion abnormality, and/or angiographical evidence. PLEASE NOTE: REFERENCE RANGES EDITED 17 Performed By: #### L500.2500, L501.4010 #### [facility] [address] [place], [address] CHEST 1 VIEW Observed: 05/01/2018 Status: F Source: [place] (PORTABLE) 11:10 AM [facility] REPOSITORY [facility] Imaging Services [address] [place] [address] Chest 1 View (Portable) MR#: [id number] Acct: [id number] Name: PHICARISSA G . Rep #: [id number] : 1940 M 77 From: Antonio Kahn MD PCP: Lambert Larios MD Status: REG ER Study: Chest 1 View (Portable) Date of Exam: 05/01/18 Exam# [id number] Ordering Dr: Sandor Sebastian MD STUDY: X-RAY CHEST REASON FOR EXAM: Male, 77 years old. Chest pain. TECHNIQUE: Single AP portable view of the chest. COMPARISON: Comparison is made with prior study dated November 06, 2017. FINDINGS: EKG electrodes are seen. Stable mild elevation of the right hemidiaphragm. Stable calcified pleural plaques bilaterally. There is mild cardiac enlargement. Normal mediastinum and mamadou. Normal visualized pulmonary arteries. Normal visualized aortic arch and descending thoracic aorta. There is a mild levoscoliosis of the thoracic spine. Normal visualized ribs, clavicles, and shoulders. There is no demonstrated abnormality of the visualized soft tissue structures of the upper abdomen. RAD/Chest 1 View (Portable) IMPRESSION: Mild cardiomegaly. Stable bilateral pleural plaque calcifications. Electronically Signed: Antonio Kahn MD at 13:18 EST Tel [phone], Service support , CC: Sandor Sebastian MD; Lambert Larios MD Orthotics Prosthetics Assistant: Signed MAGNESIUM Collected: 04/13/2018 Status: F Source: [place] 10:22 AM [facility] REPOSITORY TYPE CODE TESTS RESULT OUT OF REFERENCE UNITS RANGE LAB MG 1.7-2.3 mg/dL Magnesium 2.1 XR ELBOW 3V AP/LAT/OTHER Observed: 04/07/2018 Status: F Source: [facility] 1:00 PM [facility] REPOSITORY * * *Final Report* * * DATE OF EXAM: Apr 07 2018 1:00PM WOX [id number] - XR ELBOW 3V AP/LAT/OTHER LT / PROCEDURE REASON: Swelling of left elbow * * * * Physician Interpretation * * * * EXAMINATION: XR ELBOW 3V AP/LAT/OTHER LT HISTORY: Posteiror left elbow swelling without injury. Swelling of left elbow . TECHNIQUE: XR ELBOW 3V AP/LAT/OTHER LT Laterality: LEFT Number of different views (projections): 3 M: XB_1 COMPARISON: There are no prior studies for comparison RESULT: AP and lateral radiographs of the left elbow show no acute osseous or articular process. There is mild enthesophyte formation at the olecranon process without overlying soft tissue swelling or abnormal joint fluid. Lateral view demonstrates focal area of soft tissue prominence along the dorsal aspect of the proximal ulna. There is no gas within the soft tissues, radiopaque foreign body or underlying bony destructive process. IMPRESSION: Findings as detailed in report. Orthotics Prosthetics Assistant: PSCB Transcribe Date/Time: Apr 07 2018 3:08P Dictated by : TALA GONZALZE MD This examination was interpreted and the report reviewed and electronically signed by: TALA GONZALEZ MD on Apr 07 2018 3:10PM EST [id number] PROGRESS Observed: 04/07/2018 Status: COMPLETED Source: [place] 12:48 PM [facility] REPOSITORY HNO ID: [id number] Author: Davida Chopra (Rt) Blake Valenzuela Service: (none) Author Type: Mold Tooling Technician Type: Progress Notes Filed: 04/07/2018 1:00 PM Note Text: Radiology Service Progress Note PATIENT NAME: Carissa Yip DATE OF SERVICE: April 07, 2018 TIME: 12:48 PM PATIENT IDENTITY VERIFICATION COMPLETED USING TWO (2) METHODS: Patient confirmed name verbally and Date of . PATIENT GENDER DATA: Male PATIENT RELEVANT IMPLANT DATA REVIEWED: Not Applicable RADIOLOGY DEPARTMENT: General X-ray: Exam(s) Completed: Upper Extremity X-Ray(s): Elbow, left : PERIPHERAL IV DATA: Not applicable SIGNED BY: RT Darren April 07, 2018 12:48 PM PROGRESS Observed: 04/01/2018 Status: COMPLETED Source: [place] 3:00 PM [facility] REPOSITORY HNO ID: [id number] Author: Elena Henderson) [facility] Service: (none) Author Type: Nurse Practitioner Type: Progress Notes Filed: 04/02/2018 8:28 AM Note Text: CC: Patient presents with: Follow up cellulitis on arm HPI Carissa Yip is a 77 year old male who presents today for urgent care follow-up. Seen 03/27 for red, swollen left elbow x 1 day. Diagnosed with cellulitis and started on keflex. Today patient reports significant improvement in swelling, redness and pain. Denies fever, chills, body aches, nausea, fatigue. Tolerating antibiotics. REVIEW OF SYSTEMS See [facility] Diagnosis Date - Anxiety state, unspecified - Benign neoplasm of colon - Chronic rhinitis - Colon polyp 10/2014 - Depressive disorder, not elsewhere classified - Diabetes mellitus type 2, controlled, without complications (HCC) 08/25/2017 - Diverticulosis of colon (without mention of hemorrhage) - Esophageal reflux - Family history of malignant neoplasm of gastrointestinal tract - GENERAL OSTEOARTHROSIS 04/08/2008 - Gout 04/01/2011 - HYPERGLYCEMIA 07/19/2005 - HYPERLIPIDEMIA NEC/NOS 07/19/2005 - HYPERTENSION NOS 09/03/2007 - Hypertrophy of prostate without urinary obstruction and other lower urinary tract symptoms (LUTS) - Impaired fasting blood sugar 07/19/2005 - Internal hemorrhoids without mention of complication - IRON DEFIC ANEMIA NEC 07/19/2005 - Macular degeneration (senile) of retina, unspecified - MALIGN NEOPL PROSTATE 05/23/2005 - Other pulmonary embolism without acute cor pulmonale (HCC) 01/27/2017 - Personal history of colonic polyps - 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 - Unspecified asthma(493.90) PAST SURGICAL HISTORY Procedure Laterality Date - APPENDECTOMY 11-02-14 - COLONOS W/REM POLYP SNARE 07/25/05 - COLONOS W/REM POLYP SNARE 01/17/11 - COLONOSCOP W/ OR W/O [facility] SPEC 07/28/14 Colonoscopy - COLONOSCOP W/ OR W/O [facility] SPEC 12-20-15 - COLONOSCOPY - DIAGNOSTIC 03/02/2003 - DEBRIDEMENT WOUND 21+ SQ CM Left 09/12/2017 Left leg abcess s/pt traumatic wound. - EGD W/O OR W/BRUSH/WASH 04/17/15 EGD - KNEE SCOPE,DIAGNOSTIC 1998 LEFT - LAP COLECTMY W/ILEUM/ILEOCOL 11-02-14 WITH INCISIONAL HERNIA REPAIR - LAPAROSCOPIC HEMICOLECTOMY 11-02-14 - REMV PROSTATE,PERINEAL,RADICAL 11/28/2003 - REPAIR ROTATOR CUFF,ACUTE 03/04/2002 Rotator cuff repair Left - REPAIR UMBILICAL BAKARI,5+Y/O,REDUC 03/01/1996 Hernia repair, umbilical >5yr - REVISE MEDIAN N/CARPAL TUNNEL SURG Bilateral 1993 Carpal tunnel decomp; , - TOTAL HIP REPLACEMENT 07/26/2013 Hip replacement, total, LEFT, Dr. Rojas - TOTAL KNEE REPLACEMENT 06/2008 left knee ALLERGIES Indocin [Indomethacin Sodium]; Percocet [Oxycodone-Acetaminophen]; Seasonal Allergies MEDICATIONS cephALEXin (KEFLEX) 500 mg capsule Take 1 capsule by mouth three times daily for 7 days. furosemide (LASIX) 20 mg tablet Take 1 tablet by mouth once daily. SPIRIVA WITH HANDIHALER 18 mcg inhalation capsule inhale the contents of one capsule in the handihaler once daily nystatin-triamcinolone (MYCOLOG II) cream Apply 1 application to affected area twice daily as needed. Genital rash. guaiFENesin (MUCINEX) 600 mg 12 hr tablet Take 1 tablet by mouth twice daily. aspirin, enteric coated (ASPIRIN, ENTERIC COATED) 81 mg EC tablet Take 81 mg by mouth once daily. azelastine (ASTELIN,ASTEPRO) 0.1% nasal spray instill 2 sprays into each nostril twice a day fluticasone (FLONASE) 50 mcg/actuation nasal spray instill 2 sprays into each nostril twice a day albuterol (PROVENTIL) 2.5 mg /3 mL (0.083 %) nebulizer solution Use 3 mL via nebulizer every 4 hours as needed. Diagnosis: severe persistent asthma J45.50 sertraline (ZOLOFT) 100 mg tablet Take 1.5 tablets by mouth once daily. montelukast (SINGULAIR) 10 mg tablet Take 1 tablet by mouth daily at bedtime. nitroglycerin sublingual (NITROQUICK) 0.4 mg SL tablet Dissolve 1 tablet under the tongue every 5 minutes as needed for Chest Pain. ADVAIR HFA 230-21 mcg/actuation inhaler take 2 inhalations by mouth twice a day Rinse mouth after use omeprazole (PRILOSEC) 20 mg capsule Take 1 capsule by mouth daily before breakfast. 1/2 hr before meal. lisinopril (ZESTRIL, PRINIVIL) 20 mg tablet Take 1 tablet by mouth once daily. atorvastatin (LIPITOR) 10 mg tablet take 1 tablet by mouth at bedtime leflunomide (ARAVA) 10 mg tablet Take 10 mg by mouth once daily. VENTOLIN HFA 90 mcg/actuation inhaler inhale 2 puffs every 4 hours if needed ipratropium-albuterol (DUONEB) 0.5 mg-3 mg(2.5 mg base)/3 mL nebu Inhale 3 mL as instructed four times daily as needed. by nebulizer over 5 to 15 minutes. EPINEPHrine (EPIPEN) 0.3 mg/0.3 mL auto-injector Inject 0.3 mL intramuscularly as needed. albuterol HFA (PROVENTIL HFA) 90 mcg/actuation inhaler Inhale 2 Puffs as instructed. polyethylene glycol 3350 (MIRALAX, GLYCOLAX) 17 gram/dose powder Take 17 g by mouth once daily. Take one (1) capful in 8oz of liquid each day. ipratropium (ATROVENT) 0.02 % nebulizer solution 500 mcg (one ampule) nebulized four times a day as needed. Vitamin A-Vit C-Vit E-Zinc-Cu (OCUVITE PRESERVISION) ORAL Tab Take one(1) tablet two(2) times daily. cephALEXin (KEFLEX) 500 mg capsule Take 1 capsule by mouth three times daily for 3 days. FAMILY HISTORY Problem Relation Age of Onset - Diabetes Father - Colon Cancer Father - Asthma Mother - Colon Cancer Sister - Diabetes Sister - Colon Cancer Other Social History Substance Use Topics - Smoking status: Never Smoker - Smokeless tobacco: Never Used Comment: Father smoked in childhood home. No household smoke exposure since. 05/2014. - Alcohol use No PHYSICAL EXAM BP 120/78 Pulse 100 Temp 36.8 ?C (98.3 ?F) (Temporal Artery) Resp 16 Wt 93 kg (205 lb) SpO2 97% BMI 33.34 kg/m? General Appearance: well appearing, in no acute distress, alert Upper Extremities: Good capillary refill. Pulses: 2+ Left elbow: Localized swelling with faint erythema below elbow. No tenderness with palpation. No fluctuance or induration. No red streaking. Full and painless ROM. ASSESSMENT/PLAN: 1. Cellulitis of left elbow - ICD9: 682.3, ICD10: L03.114 Dramatic improvement per patient. - Continue treatment with Cephalaxin (Keflex) for a total of 10 days instead of 7 - No lymphangetic streaking, this was defined for patient to watch for and to seek medical care immediately if appears - Area of cellulitis defined with pen, seek further attention if this area continues to enlarge - Follow up for recheck in 5 days if no improvement or sooner for any worsening Prescription instructions reviewed with patient as applicable. Potential red flag symptoms discussed with the patient. Reviewed appropriate action plan to take if red flag symptoms occur. Patient agreeable to treatment plan. HUSSAIN MartinezOV Observed: 04/01/2018 Status: COMPLETED Source: [place] 3:00 PM [facility] REPOSITORY Office Visit (INTMWS) EMILEECITLALICARISSA GIRALDO ([id number]) 1940 M Date Time Provider Department 04/01/18 3:00 PM ELENA MONTERROSO (PETROS) INTMWS During your visit today, we recorded the following information about you: Temperature Pulse Respiration Blood pressure 98.3 degrees 100/minute 16/minute 120/78 Weight 93 kg Elena Monterroso APRN.CNP 04/02/2018 8:28 AM Signed CC: Patient presents with: Follow up cellulitis on arm HPI Carissa Mabry Alanenzo is a 77 year old male who presents today for urgent care follow-up. Seen 03/27 for red, swollen left elbow x 1 day. Diagnosed with cellulitis and started on keflex. Today patient reports significant improvement in swelling, redness and pain. Denies fever, chills, body aches, nausea, fatigue. Tolerating antibiotics. REVIEW OF SYSTEMS See [facility] Diagnosis Date - Anxiety state, unspecified - Benign neoplasm of colon - Chronic rhinitis - Colon polyp 10/2014 - Depressive disorder, not elsewhere classified - Diabetes mellitus type 2, controlled, without complications (HCC) 08/25/2017 - Diverticulosis of colon (without mention of hemorrhage) - Esophageal reflux - Family history of malignant neoplasm of gastrointestinal tract - GENERAL OSTEOARTHROSIS 04/08/2008 - Gout 04/01/2011 - HYPERGLYCEMIA 07/19/2005 - HYPERLIPIDEMIA NEC/NOS 07/19/2005 - HYPERTENSION NOS 09/03/2007 - Hypertrophy of prostate without urinary obstruction and other lower urinary tract symptoms (LUTS) - Impaired fasting blood sugar 07/19/2005 - Internal hemorrhoids without mention of complication - IRON DEFIC ANEMIA NEC 07/19/2005 - Macular degeneration (senile) of retina, unspecified - MALIGN NEOPL PROSTATE 05/23/2005 - Other pulmonary embolism without acute cor pulmonale (HCC) 01/27/2017 - Personal history of colonic polyps - 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 - Unspecified asthma(493.90) PAST SURGICAL HISTORY Procedure Laterality Date - APPENDECTOMY 11-02-14 - COLONOS W/REM POLYP SNARE 07/25/05 - COLONOS W/REM POLYP SNARE 01/17/11 - COLONOSCOP W/ OR W/O [facility] SPEC 07/28/14 Colonoscopy - COLONOSCOP W/ OR W/O [facility] SPEC 12-20-15 - COLONOSCOPY - DIAGNOSTIC 03/02/2003 - DEBRIDEMENT WOUND 21+ SQ CM Left 09/12/2017 Left leg abcess s/pt traumatic wound. - EGD W/O OR W/BRUSH/WASH 04/17/15 EGD - KNEE SCOPE,DIAGNOSTIC 1998 LEFT - LAP COLECTMY W/ILEUM/ILEOCOL 11-02-14 WITH INCISIONAL HERNIA REPAIR - LAPAROSCOPIC HEMICOLECTOMY 11-02-14 - REMV PROSTATE,PERINEAL,RADICAL 11/28/2003 - REPAIR ROTATOR CUFF,ACUTE 03/04/2002 Rotator cuff repair Left - REPAIR UMBILICAL BAKARI,5+Y/O,REDUC 03/01/1996 Hernia repair, umbilical >5yr - REVISE MEDIAN N/CARPAL TUNNEL SURG Bilateral 1993 Carpal tunnel decomp; , - TOTAL HIP REPLACEMENT 07/26/2013 Hip replacement, total, LEFT, Dr. Rojas - TOTAL KNEE REPLACEMENT 06/2008 left knee ALLERGIES Indocin [Indomethacin Sodium]; Percocet [Oxycodone-Acetaminophen]; Seasonal Allergies MEDICATIONS cephALEXin (KEFLEX) 500 mg capsule Take 1 capsule by mouth three times daily for 7 days. furosemide (LASIX) 20 mg tablet Take 1 tablet by mouth once daily. SPIRIVA WITH HANDIHALER 18 mcg inhalation capsule inhale the contents of one capsule in the handihaler once daily nystatin-triamcinolone (MYCOLOG II) cream Apply 1 application to affected area twice daily as needed. Genital rash. guaiFENesin (MUCINEX) 600 mg 12 hr tablet Take 1 tablet by mouth twice daily. aspirin, enteric coated (ASPIRIN, ENTERIC COATED) 81 mg EC tablet Take 81 mg by mouth once daily. azelastine (ASTELIN,ASTEPRO) 0.1% nasal spray instill 2 sprays into each nostril twice a day fluticasone (FLONASE) 50 mcg/actuation nasal spray instill 2 sprays into each nostril twice a day albuterol (PROVENTIL) 2.5 mg /3 mL (0.083 %) nebulizer solution Use 3 mL via nebulizer every 4 hours as needed. Diagnosis: severe persistent asthma J45.50 sertraline (ZOLOFT) 100 mg tablet Take 1.5 tablets by mouth once daily. montelukast (SINGULAIR) 10 mg tablet Take 1 tablet by mouth daily at bedtime. nitroglycerin sublingual (NITROQUICK) 0.4 mg SL tablet Dissolve 1 tablet under the tongue every 5 minutes as needed for Chest Pain. ADVAIR HFA 230-21 mcg/actuation inhaler take 2 inhalations by mouth twice a day Rinse mouth after use omeprazole (PRILOSEC) 20 mg capsule Take 1 capsule by mouth daily before breakfast. 1/2 hr before meal. lisinopril (ZESTRIL, PRINIVIL) 20 mg tablet Take 1 tablet by mouth once daily. atorvastatin (LIPITOR) 10 mg tablet take 1 tablet by mouth at bedtime leflunomide (ARAVA) 10 mg tablet Take 10 mg by mouth once daily. VENTOLIN HFA 90 mcg/actuation inhaler inhale 2 puffs every 4 hours if needed ipratropium-albuterol (DUONEB) 0.5 mg-3 mg(2.5 mg base)/3 mL nebu Inhale 3 mL as instructed four times daily as needed. by nebulizer over 5 to 15 minutes. EPINEPHrine (EPIPEN) 0.3 mg/0.3 mL auto-injector Inject 0.3 mL intramuscularly as needed. albuterol HFA (PROVENTIL HFA) 90 mcg/actuation inhaler Inhale 2 Puffs as instructed. polyethylene glycol 3350 (MIRALAX, GLYCOLAX) 17 gram/dose powder Take 17 g by mouth once daily. Take one (1) capful in 8oz of liquid each day. ipratropium (ATROVENT) 0.02 % nebulizer solution 500 mcg (one ampule) nebulized four times a day as needed. Vitamin A-Vit C-Vit E-Zinc-Cu (OCUVITE PRESERVISION) ORAL Tab Take one(1) tablet two(2) times daily. cephALEXin (KEFLEX) 500 mg capsule Take 1 capsule by mouth three times daily for 3 days. FAMILY HISTORY Problem Relation Age of Onset - Diabetes Father - Colon Cancer Father - Asthma Mother - Colon Cancer Sister - Diabetes Sister - Colon Cancer Other Social History Substance Use Topics - Smoking status: Never Smoker - Smokeless tobacco: Never Used Comment: Father smoked in childhood home. No household smoke exposure since. 05/2014. - Alcohol use No PHYSICAL EXAM BP 120/78 Pulse 100 Temp 36.8 ?C (98.3 ?F) (Temporal Artery) Resp 16 Wt 93 kg (205 lb) SpO2 97% BMI 33.34 kg/m? General Appearance: well appearing, in no acute distress, alert Upper Extremities: Good capillary refill. Pulses: 2+ Left elbow: Localized swelling with faint erythema below elbow. No tenderness with palpation. No fluctuance or induration. No red streaking. Full and painless ROM. ASSESSMENT/PLAN: 1. Cellulitis of left elbow - ICD9: 682.3, ICD10: L03.114 Dramatic improvement per patient. - Continue treatment with Cephalaxin (Keflex) for a total of 10 days instead of 7 - No lymphangetic streaking, this was defined for patient to watch for and to seek medical care immediately if appears - Area of cellulitis defined with pen, seek further attention if this area continues to enlarge - Follow up for recheck in 5 days if no improvement or sooner for any worsening Prescription instructions reviewed with patient as applicable. Potential red flag symptoms discussed with the patient. Reviewed appropriate action plan to take if red flag symptoms occur. Patient agreeable to treatment plan. HUSSAIN Martinez APRN.CNP 04/01/2018 3:15 PM Signed Continue antibiotics for a total of 10 days. Call office if no improvement in 5 days Referring Provider: ELENA MONTERROSO (PETROS) [[id number]] Allergies As of Date: 04/01/2018 Noted Allergy Reaction INDOCIN (INDOMETHACIN SODIUM) 04/01/2011 14 - Other: See Comments Comments: Wheezing, can take naprosyn PERCOCET (OXYCODONE-ACETAMINOPHEN)01/08/2005 9 - Itching SEASONAL ALLERGIES 11/12/2012 14 - Other: See Comments Comments: Cat, Goats, Dust mites, molds, trees, grasses, weed, ragweed Date Reviewed: 04/01/2018 Reviewed by: Kait Velazquez Senior Structural Engineer - Fully Assessed Reason for Visit: Follow up cellulitis on arm [Other] Primary Visit Diagnosis:Cellulitis of left elbow [L03.114] Order(s):cephALEXin (KEFLEX) 500 mg capsuleTake 1 capsule by mouth three times daily for 3 days.Disp: 9 capsuleRfl: 0 Prescriptions as of 04/01/2018 Sig: CEPHALEXIN 500 MG CAPSULE Take 1 capsule by mouth three* FUROSEMIDE 20 MG TABLET Take 1 tablet by mouth once d* SPIRIVA WITH HANDIHALER 18 MC* inhale the contents of one ca* NYSTATIN-TRIAMCINOLONE 100,00* Apply 1 application to affect* GUAIFENESIN ER 600 MG TABLET,* Take 1 tablet by mouth twice * ASPIRIN 81 MG TABLET,DELAYED * Take 81 mg by mouth once christiano* AZELASTINE 137 MCG (0.1 %) NA* instill 2 sprays into each no* FLUTICASONE 50 MCG/ACTUATION * instill 2 sprays into each no* ALBUTEROL SULFATE 2.5 MG/3 ML* Use 3 mL via nebulizer every * SERTRALINE 100 MG TABLET Take 1.5 tablets by mouth onc* MONTELUKAST 10 MG TABLET Take 1 tablet by mouth daily * NITROGLYCERIN 0.4 MG SUBLINGU* Dissolve 1 tablet under the t* ADVAIR HFA 230 MCG-21 MCG/ACT* take 2 inhalations by mouth t* OMEPRAZOLE 20 MG CAPSULE,ALEX* Take 1 capsule by mouth daily* LISINOPRIL 20 MG TABLET Take 1 tablet by mouth once d* ATORVASTATIN 10 MG TABLET take 1 tablet by mouth at bed* LEFLUNOMIDE 10 MG TABLET Take 10 mg by mouth once christiano* VENTOLIN HFA 90 MCG/ACTUATION* inhale 2 puffs every 4 hours * IPRATROPIUM-ALBUTEROL 0.5 MG-* Inhale 3 mL as instructed fou* EPINEPHRINE 0.3 MG/0.3 ML INJ* Inject 0.3 mL intramuscularly* ALBUTEROL SULFATE HFA 90 MCG/* Inhale 2 Puffs as instructed. POLYETHYLENE GLYCOL 3350 17 G* Take 17 g by mouth once daily* IPRATROPIUM BROMIDE 0.02 % SO* 500 mcg (one ampule) nebulize* PRESERVISION AREDS 7,160 UNIT* Take one(1) tablet two(2) link* CEPHALEXIN 500 MG CAPSULE Take 1 capsule by mouth three* Problem List As Of Date 04/01/2018 Noted Resolved Asthma [J45.909] 08/25/2017 CHRONIC RHINITIS [J31.0] BPH without obstruction/lower urinary tract sym* ANXIETY STATE NOS [F41.1] 08/05/2014 Depression with anxiety [F41.8] Diverticulosis of colon (without mention of hem* 10/06/2012 ESOPHAGEAL REFLUX [K21.9] Internal hemorrhoids without mention of complic* 08/30/2010 Malignant neoplasm of prostate (HCC) [C61] INVALID FOR*08/05/2014 MACULAR DEGENERATION NOS [H35.30] Other specified iron deficiency anemias [D50.8] INVALID FOR*08/30/2010 Diabetes mellitus type 2, controlled, without c*INVALID FOR* Hyperlipidemia [E78.5] INVALID FOR* Personal history of colonic polyps [Z86.010] INVALID FOR*09/30/2011 More... FAMILY HX COLON CANCER [Z80.0] INVALID FOR*08/25/2017 PULMONARY NODULES [J98.4] INVALID FOR*10/06/2012 More... 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] INVALID FOR* Essential hypertension [I10] INVALID FOR* Generalized osteoarthritis of multiple sites [M*INVALID FOR* Benign neoplasm of rectum and anal canal [D12.8*INVALID FOR*10/06/2012 Benign neoplasm of colon [D12.6] INVALID FOR* Gout [M10.9] INVALID FOR* Venous insufficiency of leg [I87.2] INVALID FOR* Iron deficiency anemia due to chronic blood los*INVALID FOR* Inflammatory polyarthropathy of multiple sites *INVALID FOR* Unsteady gait [R26.81] INVALID FOR* Uncomplicated severe persistent asthma [J45.50] INVALID FOR* Other pulmonary embolism without acute cor pulm*INVALID FOR*12/29/2017 Pulmonary hypertension (HCC) [I27.20] INVALID FOR* Memory disturbance [R41.3] INVALID FOR* Obesity, Class I, BMI 30-34.9 E66.9 [E66.9] INVALID FOR* Open wound of left lower extremity [S81.802A] INVALID FOR* Prothrombin T07452N mutation (HCC) [D68.52] INVALID FOR*12/29/2017 Allergic rhinitis due to cats [J30.81] INVALID FOR* Allergic rhinitis due to dust mite [J30.89] INVALID FOR* Allergic rhinitis due to fungal spores [J30.89] INVALID FOR* Seasonal allergic rhinitis due to pollen [J30.1]INVALID FOR* Other instructions from your clinician: Continue antibiotics for a total of 10 days. Call office if no improvement in 5 days Prescriptions ordered this encounter Disp Refills Start End CEPHALEXIN 500 MG CAPSULE 9 ca* 0 04/01/2018 04/04/2018 Route: ORAL Sig: Take 1 capsule by mouth three times daily for 3 days. Encounter Status:Closed by ELENA MONTERROSO CNP on 04/02/18 ALEJANDRA Observed: 03/30/2018 Status: COMPLETED Source: [place] 11:00 AM [facility] REPOSITORY Office Visit (PULMWS) CARISSA YIP ([id number]) 1940 Feng Date Time Provider Department 03/30/18 11:00 AM LENI MCBRIDE PULNATHALIE During your visit today, we recorded the following information about you: Pulse Respiration Blood pressure Weight 101/minute 18/minute 128/72 93.4 kg Leni Mcbride PA-C 03/30/2018 11:13 AM S[address] [facility] Respiratory [place], 03/30/18: INTERVAL HISTORY: The patient is here for follow up of asthma; the last Pulmonary Clinic visit was 03/02/18. The patient admits to compliance with prescribed maintenance Rx: Advair and Spiriva. There have been no ED visit(s) for the management of asthma exacerbation. No hospitalization(s) for management of asthma exacerbation. Has used no prednisone for the management of exacerbation. Very little use of rescue bronchodilator use. No nocturnal awakenings per month with asthma symptoms. Daily dry cough. No hemoptysis or pleuritic chest pain. Variable wheezing with carrying a load of laundry or working outside. Dyspnea with exertion, bending over, No disruption in taste or voice associated with use of inhaled corticosteroid. No tremor, palpitations, or muscle cramping associated with bronchodilator inhalation. PMH: Updated with patient today. FAMH: Updated with patient today. SOCH: Updated with patient today. ROS: General: Generally feels short of breath. Appetite good. Weight stable. Eyes, Ears, nose, throat: No post nasal drip, rhinorrhea, purulent nasal discharge, epistaxis. No hoarseness. Vision stable. Cardiac: No angina, edema, orthopnea. GI: No heartburn, dysphagia, diarrhea. Uro/PUMP ERECTOR: No dysuria, hesitancy, nocturia. Musculoskeletal: No pain. Neuro: No headache, focal weakness, tremor. Skin: LUE cellulitis, currently on Keflex. Otherwise negative. Immunization History Administered Date(s) Administered Influenza Seasonal - High Dose - Age 65+ 01/25/2014 01/20/2016 01/30/2017 02/09/2018 Influenza Seasonal Inj Age 3+ 02/01/2015 Influenza Vaccine, Split-Non Spec 03/17/2006 03/17/2007 03/23/2008 02/11/2009 03/08/2010 02/16/2011 02/21/2012 01/21/2013 Pneumococcal-13 Vac Conjugate 02/22/2015 10/10/2015 Pneumovax 06/04/2000 09/17/2010 TD Adult 11/10/2006 Tdap (Age 7+) 09/05/2017 Tetanus Diphtheria Booster (Age >7) Pres Free 02/22/2016 Zostavax 04/01/2011 Allergies were verified and updated, and medications were reconciled with the patient at this visit. PHYSICAL EXAMINATION: BP 128/72 Pulse 101 Resp 18 Wt 206 lb (93.4kg) SpO2 96% Gen: No acute distress. Cooperative with examination. ENT: Nares clear. Oral hygeine good. Pharynx clear. No sign of oral thrush. Resp: No stridor, accessory respiratory muscle use. No crackles, wheezes. CV: Regular rythm. Systolic murmur. Radial pulses normal. Abd: Non distended. MSK: No kyphoscoliosis. Ext: Warm and well perfused. No cyanosis. Skin: No rash, eczema, urticaria. Neuro: Mental status normal. No tremor. DATA REVIEW: CXR, 03/04/18 IMPRESSION: Atelectasis or fibrosis at both lung bases. ?Calcific pleural plaque formation. ?No evidence of developing abnormality or acute process. VQ perfusion, 03/04/18 IMPRESSION: THE STUDY IS MOST CONSISTENT WITH A LOW PROBABILITY OF PULMONARY EMBOLISM. RESULTS: Multiple matched ventilation/perfusion abnormalities are identified in both lungs. No mismatched perfusion defects are seen. Echo, 03/06/18 FINDINGS: ? LEFT VENTRICLE The left ventricle is small. Left ventricular systolic function is normal. Indeterminate left ventricular diastolic dysfunction due to severe MAC. Mitral annular lateral E/e': 24.7. Mitral annular septal E/e': 29.6. Wall Motion: All scored segments are normal. ? RIGHT VENTRICLE The right ventricle is normal in size. Right ventricular systolic function is normal. RV systolic tissue Doppler velocity ?is 13.0 cm/s. Estimated right ventricular systolic pressure is not reported due to an insufficient tricuspid regurgitation signal. ? LEFT ATRIUM The left atrial cavity is mildly dilated. ? RIGHT ATRIUM Unable to reliably measure RA volume due to technical limitations. Inferior Vena Cava: The inferior vena cava appears small measuring 0.8 cm. The vessel decreases less than 50 percent with inspiration. MITRAL VALVE There is severe mitral annular calcification observed anterior and posterior. There is mitral stenosis. There is trivial mitral valve regurgitation. The peak mitral valve gradient is 11 mmHg. The mean mitral valve gradient is 5 mmHg. The pressure half time is 72 msec. The peak mitral E/A ratio is 0.94. The average mitral E/e' ratio is 27.1. The mitral flow deceleration time is 247 msec. ? TRICUSPID VALVE There is trivial tricuspid valve regurgitation. ? AORTIC VALVE There is moderate aortic valve stenosis. There is trivial aortic valve regurgitation. Tricuspid aortic valve. There is moderate thickening. There is moderate calcification. The peak gradient is 22 mmHg (peak velocity = 235.7 cm/s). ?The mean gradient is 12 mmHg. The LVOT mean velocity is 72.4 cm/s. The LVOT diameter is 1.8 cm. The aortic VTI is 50.1 cm. The mean velocity in the aortic valve is 160.9 cm/s. The dimensionless valve index is 0.49. AV area is 1.30 cm? (0.62 cm?/m?) by continuity, VTI. The LVOT stroke volume index is 32 ml/m?. ? PULMONIC VALVE There is trivial pulmonic valve regurgitation. ? AORTA The visualized aorta is normal in size. Measurements - Sinus 3.0 cm. Sinotubular junction 2.5 cm. Mid ascending aorta 3.4 cm. PULMONARY ARTERIES The pulmonary arteries are unseen or not interrogated. ? PERICARDIUM There is no pericardial effusion. There is an epicardial fat pad. ? CONCLUSIONS: - Technically difficult exam due to body habitus. - Exam indication: Shortness of Breath - The left ventricle is small. Left ventricular systolic function is normal. EF = 60 ? 5% (2D 4-ch.) Indeterminate left ventricular diastolic dysfunction due to severe MAC. - The right ventricle is normal in size. Right ventricular systolic function is normal. - The left atrial cavity is mildly dilated. - Tricuspid aortic valve. There is moderate aortic valve stenosis. AV area is 1.30 ?cm? (0.62 cm?/m?) by continuity, VTI. The peak gradient is 22 mmHg, the mean gradient is 12 mmHg and the dimensionless valve index is 0.49. - Exam was compared with the prior echocardiographic exam performed on 05/02/2017. IMPRESSION and RECOMMENDATIONS: Asthma, severe persistent. 1. I reviewed the pathophysiology of asthma, NIH guidelines for evaluation and management, and mechanisms of action and side effects of medical therapy (ICS, bronchodilators) with the patient. 2. Changes in maintenance Rx: - None. 3. Continue Albuterol HFA inhaler, 2 inhalations 10?15 minutes prior to activities associated with shortness of breath, and as needed for rescue relief of shortness of breath or wheezing, up to 4 times daily. 4. Up to date on influenza and pneumonia vaccines. 5. Re-assess in 3 months, sooner if needed. Moderate Aortic Valve Stenosis per Echocardiogram. 1. Patient evaluated recently by Dr. Verma. 2. Started on Lasix daily. 3. Follow up as scheduled. I addressed the questions of the patient, and he expressed understanding and acceptance of my answers. Leni Mcbride PA-C [facility] Respiratory [place] [facility] [place] [address] Leni Mcbride PA-C 03/30/2018 11:10 AM Signed Asthma, severe persistent. 1. I reviewed the pathophysiology of asthma, NIH guidelines for evaluation and management, and mechanisms of action and side effects of medical therapy (ICS, bronchodilators) with the patient. 2. Changes in maintenance Rx: - None. 3. Continue Albuterol HFA inhaler, 2 inhalations 10?15 minutes prior to activities associated with shortness of breath, and as needed for rescue relief of shortness of breath or wheezing, up to 4 times daily. 4. Up to date on influenza and pneumonia vaccines. 5. Re-assess in 3 months, sooner if needed. Moderate Aortic Valve Stenosis per Echocardiogram. 1. Patient evaluated recently by Dr. Verma. 2. Started on Lasix daily. 3. Follow up as scheduled. Referring Provider: LENI MCBRIDE [[id number]] Allergies As of Date: 03/30/2018 Noted Allergy Reaction INDOCIN (INDOMETHACIN SODIUM) 04/01/2011 14 - Other: See Comments Comments: Wheezing, can take naprosyn PERCOCET (OXYCODONE-ACETAMINOPHEN)01/08/2005 9 - Itching SEASONAL ALLERGIES 11/12/2012 14 - Other: See Comments Comments: Cat, Goats, Dust mites, molds, trees, grasses, weed, ragweed Date Reviewed: 03/30/2018 Reviewed by: Leni Mcbride - Fully Assessed Reason for Visit: Established Patient [175] Cmt: 4 week follow up Primary Visit Diagnosis:Severe persistent asthma without complication [J45.50] Other Visit Diagnosis:Aortic valve stenosis, moderate [I35.0] Prescriptions as of 03/30/2018 Sig: CEPHALEXIN 500 MG CAPSULE Take 1 capsule by mouth three* FUROSEMIDE 20 MG TABLET Take 1 tablet by mouth once d* SPIRIVA WITH HANDIHALER 18 MC* inhale the contents of one ca* NYSTATIN-TRIAMCINOLONE 100,00* Apply 1 application to affect* GUAIFENESIN ER 600 MG TABLET,* Take 1 tablet by mouth twice * ASPIRIN 81 MG TABLET,DELAYED * Take 81 mg by mouth once christiano* AZELASTINE 137 MCG (0.1 %) NA* instill 2 sprays into each no* FLUTICASONE 50 MCG/ACTUATION * instill 2 sprays into each no* ALBUTEROL SULFATE 2.5 MG/3 ML* Use 3 mL via nebulizer every * SERTRALINE 100 MG TABLET Take 1.5 tablets by mouth onc* MONTELUKAST 10 MG TABLET Take 1 tablet by mouth daily * NITROGLYCERIN 0.4 MG SUBLINGU* Dissolve 1 tablet under the t* ADVAIR HFA 230 MCG-21 MCG/ACT* take 2 inhalations by mouth t* OMEPRAZOLE 20 MG CAPSULE,ALEX* Take 1 capsule by mouth daily* LISINOPRIL 20 MG TABLET Take 1 tablet by mouth once d* ATORVASTATIN 10 MG TABLET take 1 tablet by mouth at bed* LEFLUNOMIDE 10 MG TABLET Take 10 mg by mouth once christiano* VENTOLIN HFA 90 MCG/ACTUATION* inhale 2 puffs every 4 hours * IPRATROPIUM-ALBUTEROL 0.5 MG-* Inhale 3 mL as instructed fou* EPINEPHRINE 0.3 MG/0.3 ML INJ* Inject 0.3 mL intramuscularly* ALBUTEROL SULFATE HFA 90 MCG/* Inhale 2 Puffs as instructed. POLYETHYLENE GLYCOL 3350 17 G* Take 17 g by mouth once daily* IPRATROPIUM BROMIDE 0.02 % SO* 500 mcg (one ampule) nebulize* PRESERVISION AREDS 7,160 UNIT* Take one(1) tablet two(2) link* Problem List As Of Date 03/30/2018 Noted Resolved Asthma [J45.909] 08/25/2017 CHRONIC RHINITIS [J31.0] BPH without obstruction/lower urinary tract sym* ANXIETY STATE NOS [F41.1] 08/05/2014 Depression with anxiety [F41.8] Diverticulosis of colon (without mention of hem* 10/06/2012 ESOPHAGEAL REFLUX [K21.9] Internal hemorrhoids without mention of complic* 08/30/2010 Malignant neoplasm of prostate (HCC) [C61] INVALID FOR*08/05/2014 MACULAR DEGENERATION NOS [H35.30] Other specified iron deficiency anemias [D50.8] INVALID FOR*08/30/2010 Diabetes mellitus type 2, controlled, without c*INVALID FOR* Hyperlipidemia [E78.5] INVALID FOR* Personal history of colonic polyps [Z86.010] INVALID FOR*09/30/2011 More... FAMILY HX COLON CANCER [Z80.0] INVALID FOR*08/25/2017 PULMONARY NODULES [J98.4] INVALID FOR*10/06/2012 More... 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] INVALID FOR* Essential hypertension [I10] INVALID FOR* Generalized osteoarthritis of multiple sites [M*INVALID FOR* Benign neoplasm of rectum and anal canal [D12.8*INVALID FOR*10/06/2012 Benign neoplasm of colon [D12.6] INVALID FOR* Gout [M10.9] INVALID FOR* Venous insufficiency of leg [I87.2] INVALID FOR* Iron deficiency anemia due to chronic blood los*INVALID FOR* Inflammatory polyarthropathy of multiple sites *INVALID FOR* Unsteady gait [R26.81] INVALID FOR* Uncomplicated severe persistent asthma [J45.50] INVALID FOR* Other pulmonary embolism without acute cor pulm*INVALID FOR*12/29/2017 Pulmonary hypertension (HCC) [I27.20] INVALID FOR* Memory disturbance [R41.3] INVALID FOR* Obesity, Class I, BMI 30-34.9 E66.9 [E66.9] INVALID FOR* Open wound of left lower extremity [S81.802A] INVALID FOR* 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 1. I reviewed the pathophysiology of asthma, NIH guidelines for evaluation and management, and mechanisms of action and side effects of medical therapy (ICS, bronchodilators) with the patient. 2. Changes in maintenance Rx: - None. 3. Continue Albuterol HFA inhaler, 2 inhalations 10?15 minutes prior to activities associated with shortness of breath, and as needed for rescue relief of shortness of breath or wheezing, up to 4 times daily. 4. Up to date on influenza and pneumonia vaccines. 5. Re-assess in 3 months, sooner if needed. Moderate Aortic Valve Stenosis per Echocardiogram. 1. Patient evaluated recently by Dr. Verma. 2. Started on Lasix daily. 3. Follow up as scheduled. Disposition: Return in about 3 months (around 06/30/2018). Follow-up and Disposition History Recorded Encounter Status:Closed by LENI MCBRIDE on 03/30/18 PROGRESS Observed: 03/30/2018 Status: COMPLETED Source: [place] 10:50 AM [facility] [place] REPOSITORY HNO ID: [id number] Author: Leni Mcbride Service: (none) Author Type: Physician Truck Repair Supervisor Type: Progress Notes Filed: 03/30/2018 11:13 AM Note Text: [facility] Respiratory [place], 03/30/18: INTERVAL HISTORY: The patient is here for follow up of asthma; the last Pulmonary Clinic visit was 03/02/18. The patient admits to compliance with prescribed maintenance Rx: Advair and Spiriva. There have been no ED visit(s) for the management of asthma exacerbation. No hospitalization(s) for management of asthma exacerbation. Has used no prednisone for the management of exacerbation. Very little use of rescue bronchodilator use. No nocturnal awakenings per month with asthma symptoms. Daily dry cough. No hemoptysis or pleuritic chest pain. Variable wheezing with carrying a load of laundry or working outside. Dyspnea with exertion, bending over, No disruption in taste or voice associated with use of inhaled corticosteroid. No tremor, palpitations, or muscle cramping associated with bronchodilator inhalation. PMH: Updated with patient today. FAMH: Updated with patient today. SOCH: Updated with patient today. ROS: General: Generally feels short of breath. Appetite good. Weight stable. Eyes, Ears, nose, throat: No post nasal drip, rhinorrhea, purulent nasal discharge, epistaxis. No hoarseness. Vision stable. Cardiac: No angina, edema, orthopnea. GI: No heartburn, dysphagia, diarrhea. Uro/PUMP ERECTOR: No dysuria, hesitancy, nocturia. Musculoskeletal: No pain. Neuro: No headache, focal weakness, tremor. Skin: LUE cellulitis, currently on Keflex. Otherwise negative. Immunization History Administered Date(s) Administered Influenza Seasonal - High Dose - Age 65+ 01/25/2014 01/20/2016 01/30/201702/0902/09/2018 Influenza Seasonal Inj Age 3+ 02/01/2015 Influenza Vaccine, Split-Non Spec 03/17/2006 03/17/2007 03/23/2008 02/11/2009 03/08/2010 02/16/2011 02/21/2012 01/21/2013 Pneumococcal-13 Vac Conjugate 02/22/2015 10/10/2015 Pneumovax 06/04/2000 09/17/2010 TD Adult 11/10/2006 Tdap (Age 7+) 09/05/2017 Tetanus Diphtheria Booster (Age >7) Pres Free 02/22/2016 Zostavax 04/01/2011 Allergies were verified and updated, and medications were reconciled with the patient at this visit. PHYSICAL EXAMINATION: BP 128/72 Pulse 101 Resp 18 Wt 206 lb (93.4kg) SpO2 96% Gen: No acute distress. Cooperative with examination. ENT: Nares clear. Oral hygeine good. Pharynx clear. No sign of oral thrush. Resp: No stridor, accessory respiratory muscle use. No crackles, wheezes. CV: Regular rythm. Systolic murmur. Radial pulses normal. Abd: Non distended. MSK: No kyphoscoliosis. Ext: Warm and well perfused. No cyanosis. Skin: No rash, eczema, urticaria. Neuro: Mental status normal. No tremor. DATA REVIEW: CXR, 03/04/18 IMPRESSION: Atelectasis or fibrosis at both lung bases. ?Calcific pleural plaque formation. ?No evidence of developing abnormality or acute process. VQ perfusion, 03/04/18 IMPRESSION: THE STUDY IS MOST CONSISTENT WITH A LOW PROBABILITY OF PULMONARY EMBOLISM. RESULTS: Multiple matched ventilation/perfusion abnormalities are identified in both lungs. No mismatched perfusion defects are seen. Echo, 03/06/18 FINDINGS: ? LEFT VENTRICLE The left ventricle is small. Left ventricular systolic function is normal. Indeterminate left ventricular diastolic dysfunction due to severe MAC. Mitral annular lateral E/e': 24.7. Mitral annular septal E/e': 29.6. Wall Motion: All scored segments are normal. ? RIGHT VENTRICLE The right ventricle is normal in size. Right ventricular systolic function is normal. RV systolic tissue Doppler velocity ?is 13.0 cm/s. Estimated right ventricular systolic pressure is not reported due to an insufficient tricuspid regurgitation signal. ? LEFT ATRIUM The left atrial cavity is mildly dilated. ? RIGHT ATRIUM Unable to reliably measure RA volume due to technical limitations. Inferior Vena Cava: The inferior vena cava appears small measuring 0.8 cm. The vessel decreases less than 50 percent with inspiration. MITRAL VALVE There is severe mitral annular calcification observed anterior and posterior. There is mitral stenosis. There is trivial mitral valve regurgitation. The peak mitral valve gradient is 11 mmHg. The mean mitral valve gradient is 5 mmHg. The pressure half time is 72 msec. The peak mitral E/A ratio is 0.94. The average mitral E/e' ratio is 27.1. The mitral flow deceleration time is 247 msec. ? TRICUSPID VALVE There is trivial tricuspid valve regurgitation. ? AORTIC VALVE There is moderate aortic valve stenosis. There is trivial aortic valve regurgitation. Tricuspid aortic valve. There is moderate thickening. There is moderate calcification. The peak gradient is 22 mmHg (peak velocity = 235.7 cm/s). ?The mean gradient is 12 mmHg. The LVOT mean velocity is 72.4 cm/s. The LVOT diameter is 1.8 cm. The aortic VTI is 50.1 cm. The mean velocity in the aortic valve is 160.9 cm/s. The dimensionless valve index is 0.49. AV area is 1.30 cm? (0.62 cm?/m?) by continuity, VTI. The LVOT stroke volume index is 32 ml/m?. ? PULMONIC VALVE There is trivial pulmonic valve regurgitation. ? AORTA The visualized aorta is normal in size. Measurements - Sinus 3.0 cm. Sinotubular junction 2.5 cm. Mid ascending aorta 3.4 cm. PULMONARY ARTERIES The pulmonary arteries are unseen or not interrogated. ? PERICARDIUM There is no pericardial effusion. There is an epicardial fat pad. ? CONCLUSIONS: - Technically difficult exam due to body habitus. - Exam indication: Shortness of Breath - The left ventricle is small. Left ventricular systolic function is normal. EF = 60 ? 5% (2D 4-ch.) Indeterminate left ventricular diastolic dysfunction due to severe MAC. - The right ventricle is normal in size. Right ventricular systolic function is normal. - The left atrial cavity is mildly dilated. - Tricuspid aortic valve. There is moderate aortic valve stenosis. AV area is 1.30 ?cm? (0.62 cm?/m?) by continuity, VTI. The peak gradient is 22 mmHg, the mean gradient is 12 mmHg and the dimensionless valve index is 0.49. - Exam was compared with the prior echocardiographic exam performed on 05/02/2017. IMPRESSION and RECOMMENDATIONS: Asthma, severe persistent. 1. I reviewed the pathophysiology of asthma, NIH guidelines for evaluation and management, and mechanisms of action and side effects of medical therapy (ICS, bronchodilators) with the patient. 2. Changes in maintenance Rx: - None. 3. Continue Albuterol HFA inhaler, 2 inhalations 10?15 minutes prior to activities associated with shortness of breath, and as needed for rescue relief of shortness of breath or wheezing, up to 4 times daily. 4. Up to date on influenza and pneumonia vaccines. 5. Re-assess in 3 months, sooner if needed. Moderate Aortic Valve Stenosis per Echocardiogram. 1. Patient evaluated recently by Dr. Verma. 2. Started on Lasix daily. 3. Follow up as scheduled. I addressed the questions of the patient, and he expressed understanding and acceptance of my answers. Leni Mcbride PA-C [facility] Respiratory [place] [facility] Surgery [address] [id number] PROGRESS Observed: 03/27/2018 Status: COMPLETED Source: [place] 12:36 PM [facility] REPOSITORY HNO ID: [id number] Author: Vasquez Reynoso Service: (none) Author Type: Physician Type: Progress Notes Filed: 03/27/2018 1:18 PM Note Text: Patient presents with: Elbow Injury HPI: Left elbow pain: Duration: Woke with swelling yesterday (ran a chainsaw the day before) Location: Left elbow/forearm Character: Tender to touch Radiation: No. Relieving: none Pain relievers: none Associated: Warmth, redness, swelling, bump under the skin Pertinent negatives: Denies fever, chills, body aches, known injury Hx of cellulitis in both lower legs. Denies MRSA. PAST MEDICAL HISTORY Diagnosis Date - Anxiety state, unspecified - Benign neoplasm of colon - Chronic rhinitis - Colon polyp 10/2014 - Depressive disorder, not elsewhere classified - Diabetes mellitus type 2, controlled, without complications (HCC) 08/25/2017 - Diverticulosis of colon (without mention of hemorrhage) - Esophageal reflux - Family history of malignant neoplasm of gastrointestinal tract - GENERAL OSTEOARTHROSIS 04/08/2008 - Gout 04/01/2011 - HYPERGLYCEMIA 07/19/2005 - HYPERLIPIDEMIA NEC/NOS 07/19/2005 - HYPERTENSION NOS 09/03/2007 - Hypertrophy of prostate without urinary obstruction and other lower urinary tract symptoms (LUTS) - Impaired fasting blood sugar 07/19/2005 - Internal hemorrhoids without mention of complication - IRON DEFIC ANEMIA NEC 07/19/2005 - Macular degeneration (senile) of retina, unspecified - MALIGN NEOPL PROSTATE 05/23/2005 - Other pulmonary embolism without acute cor pulmonale (HCC) 01/27/2017 - Personal history of colonic polyps - 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 - Unspecified asthma(493.90) MEDICATIONS: furosemide (LASIX) 20 mg tablet Take 1 tablet by mouth once daily. SPIRIVA WITH HANDIHALER 18 mcg inhalation capsule inhale the contents of one capsule in the handihaler once daily nystatin-triamcinolone (MYCOLOG II) cream Apply 1 application to affected area twice daily as needed. Genital rash. guaiFENesin (MUCINEX) 600 mg 12 hr tablet Take 1 tablet by mouth twice daily. aspirin, enteric coated (ASPIRIN, ENTERIC COATED) 81 mg EC tablet Take 81 mg by mouth once daily. azelastine (ASTELIN,ASTEPRO) 0.1% nasal spray instill 2 sprays into each nostril twice a day fluticasone (FLONASE) 50 mcg/actuation nasal spray instill 2 sprays into each nostril twice a day albuterol (PROVENTIL) 2.5 mg /3 mL (0.083 %) nebulizer solution Use 3 mL via nebulizer every 4 hours as needed. Diagnosis: severe persistent asthma J45.50 sertraline (ZOLOFT) 100 mg tablet Take 1.5 tablets by mouth once daily. montelukast (SINGULAIR) 10 mg tablet Take 1 tablet by mouth daily at bedtime. nitroglycerin sublingual (NITROQUICK) 0.4 mg SL tablet Dissolve 1 tablet under the tongue every 5 minutes as needed for Chest Pain. ADVAIR HFA 230-21 mcg/actuation inhaler take 2 inhalations by mouth twice a day Rinse mouth after use omeprazole (PRILOSEC) 20 mg capsule Take 1 capsule by mouth daily before breakfast. 1/2 hr before meal. lisinopril (ZESTRIL, PRINIVIL) 20 mg tablet Take 1 tablet by mouth once daily. atorvastatin (LIPITOR) 10 mg tablet take 1 tablet by mouth at bedtime leflunomide (ARAVA) 10 mg tablet Take 10 mg by mouth once daily. VENTOLIN HFA 90 mcg/actuation inhaler inhale 2 puffs every 4 hours if needed ipratropium-albuterol (DUONEB) 0.5 mg-3 mg(2.5 mg base)/3 mL nebu Inhale 3 mL as instructed four times daily as needed. by nebulizer over 5 to 15 minutes. EPINEPHrine (EPIPEN) 0.3 mg/0.3 mL auto-injector Inject 0.3 mL intramuscularly as needed. albuterol HFA (PROVENTIL HFA) 90 mcg/actuation inhaler Inhale 2 Puffs as instructed. polyethylene glycol 3350 (MIRALAX, GLYCOLAX) 17 gram/dose powder Take 17 g by mouth once daily. Take one (1) capful in 8oz of liquid each day. ipratropium (ATROVENT) 0.02 % nebulizer solution 500 mcg (one ampule) nebulized four times a day as needed. Vitamin A-Vit C-Vit E-Zinc-Cu (OCUVITE PRESERVISION) ORAL Tab Take one(1) tablet two(2) times daily. ALLERGIES: ALLERGIES Allergen Reactions - Indocin [Indomethac* Other: See Comments Wheezing, can take naprosyn - Percocet [Oxycodone* Itching - Seasonal Allergies Other: See Comments Cat, Goats, Dust mites, molds, trees, grasses, weed, ragweed VITALS: BP 112/80 Pulse 87 Temp 36.4 ?C (97.5 ?F) (Left Tympanic) Resp 18 Wt 93.4 kg (206 lb) BMI 33.50 kg/m? PE: Pleasant, in no acute distress. Elbow: 10cm area of erythema, swelling, and tenderness proximal dorsal forearm. No ulcers, pustules, or punctures. There is a 1cm subcutaneous mass over the ulna in the mid lesion. The olecranon process is non-tender and there is no swelling over it. Normal ROM of the elbow. ASSESSMENT/PLAN: 1. Cellulitis of left elbow - ICD9: 682.3, ICD10: L03.114 - CEPHALEXIN 500 MG CAPSULE Swollen area appears cellulitic. No ecchymosis or olecranon bursitis. F/u in the ER with fever/chills/body aches or worsening swelling. Vasquez Reynoso MD CNOV Observed: 03/27/2018 Status: COMPLETED Source: [place] 12:15 PM [facility] REPOSITORY Office Visit (WSTR) CARISSA YIP ([id number]) 1940 M Date Time Provider Department 03/27/18 12:15 PM VASQUEZ REYNOSO [facility] During your visit today, we recorded the following information about you: Temperature Pulse Respiration Blood pressure 97.5 degrees 87/minute 18/minute 112/80 Weight 93.4 kg Vasquez Reynoso MD 03/27/2018 1:18 PM Signed Patient presents with: Elbow Injury HPI: Left elbow pain: Duration: Woke with swelling yesterday (ran a chainsaw the day before) Location: Left elbow/forearm Character: Tender to touch Radiation: No. Relieving: none Pain relievers: none Associated: Warmth, redness, swelling, bump under the skin Pertinent negatives: Denies fever, chills, body aches, known injury Hx of cellulitis in both lower legs. Denies MRSA. PAST MEDICAL HISTORY Diagnosis Date - Anxiety state, unspecified - Benign neoplasm of colon - Chronic rhinitis - Colon polyp 10/2014 - Depressive disorder, not elsewhere classified - Diabetes mellitus type 2, controlled, without complications ([facility]) 08/25/2017 - Diverticulosis of colon (without mention of hemorrhage) - Esophageal reflux - Family history of malignant neoplasm of gastrointestinal tract - GENERAL OSTEOARTHROSIS 04/08/2008 - Gout 04/01/2011 - HYPERGLYCEMIA 07/19/2005 - HYPERLIPIDEMIA NEC/NOS 07/19/2005 - HYPERTENSION NOS 09/03/2007 - Hypertrophy of prostate without urinary obstruction and other lower urinary tract symptoms (LUTS) - Impaired fasting blood sugar 07/19/2005 - Internal hemorrhoids without mention of complication - IRON DEFIC ANEMIA NEC 07/19/2005 - Macular degeneration (senile) of retina, unspecified - MALIGN NEOPL PROSTATE 05/23/2005 - Other pulmonary embolism without acute cor pulmonale (HCC) 01/27/2017 - Personal history of colonic polyps - 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 - Unspecified asthma(493.90) MEDICATIONS: furosemide (LASIX) 20 mg tablet Take 1 tablet by mouth once daily. SPIRIVA WITH HANDIHALER 18 mcg inhalation capsule inhale the contents of one capsule in the handihaler once daily nystatin-triamcinolone (MYCOLOG II) cream Apply 1 application to affected area twice daily as needed. Genital rash. guaiFENesin (MUCINEX) 600 mg 12 hr tablet Take 1 tablet by mouth twice daily. aspirin, enteric coated (ASPIRIN, ENTERIC COATED) 81 mg EC tablet Take 81 mg by mouth once daily. azelastine (ASTELIN,ASTEPRO) 0.1% nasal spray instill 2 sprays into each nostril twice a day fluticasone (FLONASE) 50 mcg/actuation nasal spray instill 2 sprays into each nostril twice a day albuterol (PROVENTIL) 2.5 mg /3 mL (0.083 %) nebulizer solution Use 3 mL via nebulizer every 4 hours as needed. Diagnosis: severe persistent asthma J45.50 sertraline (ZOLOFT) 100 mg tablet Take 1.5 tablets by mouth once daily. montelukast (SINGULAIR) 10 mg tablet Take 1 tablet by mouth daily at bedtime. nitroglycerin sublingual (NITROQUICK) 0.4 mg SL tablet Dissolve 1 tablet under the tongue every 5 minutes as needed for Chest Pain. ADVAIR HFA 230-21 mcg/actuation inhaler take 2 inhalations by mouth twice a day Rinse mouth after use omeprazole (PRILOSEC) 20 mg capsule Take 1 capsule by mouth daily before breakfast. 1/2 hr before meal. lisinopril (ZESTRIL, PRINIVIL) 20 mg tablet Take 1 tablet by mouth once daily. atorvastatin (LIPITOR) 10 mg tablet take 1 tablet by mouth at bedtime leflunomide (ARAVA) 10 mg tablet Take 10 mg by mouth once daily. VENTOLIN HFA 90 mcg/actuation inhaler inhale 2 puffs every 4 hours if needed ipratropium-albuterol (DUONEB) 0.5 mg-3 mg(2.5 mg base)/3 mL nebu Inhale 3 mL as instructed four times daily as needed. by nebulizer over 5 to 15 minutes. EPINEPHrine (EPIPEN) 0.3 mg/0.3 mL auto-injector Inject 0.3 mL intramuscularly as needed. albuterol HFA (PROVENTIL HFA) 90 mcg/actuation inhaler Inhale 2 Puffs as instructed. polyethylene glycol 3350 (MIRALAX, GLYCOLAX) 17 gram/dose powder Take 17 g by mouth once daily. Take one (1) capful in 8oz of liquid each day. ipratropium (ATROVENT) 0.02 % nebulizer solution 500 mcg (one ampule) nebulized four times a day as needed. Vitamin A-Vit C-Vit E-Zinc-Cu (OCUVITE PRESERVISION) ORAL Tab Take one(1) tablet two(2) times daily. ALLERGIES: ALLERGIES Allergen Reactions - Indocin [Indomethac* Other: See Comments Wheezing, can take naprosyn - Percocet [Oxycodone* Itching - Seasonal Allergies Other: See Comments Cat, Goats, Dust mites, molds, trees, grasses, weed, ragweed VITALS: BP 112/80 Pulse 87 Temp 36.4 ?C (97.5 ?F) (Left Tympanic) Resp 18 Wt 93.4 kg (206 lb) BMI 33.50 kg/m? PE: Pleasant, in no acute distress. Elbow: 10cm area of erythema, swelling, and tenderness proximal dorsal forearm. No ulcers, pustules, or punctures. There is a 1cm subcutaneous mass over the ulna in the mid lesion. The olecranon process is non-tender and there is no swelling over it. Normal ROM of the elbow. ASSESSMENT/PLAN: 1. Cellulitis of left elbow - ICD9: 682.3, ICD10: L03.114 - CEPHALEXIN 500 MG CAPSULE Swollen area appears cellulitic. No ecchymosis or olecranon bursitis. F/u in the ER with fever/chills/body aches or worsening swelling. Vasquez Reynoso MD Referring Provider: SELF [[id number]] Allergies As of Date: 03/27/2018 Noted Allergy Reaction INDOCIN (INDOMETHACIN SODIUM) 04/01/2011 14 - Other: See Comments Comments: Wheezing, can take naprosyn PERCOCET (OXYCODONE-ACETAMINOPHEN)01/08/2005 9 - Itching SEASONAL ALLERGIES 11/12/2012 14 - Other: See Comments Comments: Cat, Goats, Dust mites, molds, trees, grasses, weed, ragweed Date Reviewed: 03/27/2018 Reviewed by: Taryn Hernandez Ma - Fully Assessed Reason for Visit: Elbow Injury [1969] Primary Visit Diagnosis:Cellulitis of left elbow [L03.114] Order(s):cephALEXin (KEFLEX) 500 mg capsuleTake 1 capsule by mouth three times daily for 7 days.Disp: 21 capsuleRfl: 0 Prescriptions as of 03/27/2018 Sig: FUROSEMIDE 20 MG TABLET Take 1 tablet by mouth once d* SPIRIVA WITH HANDIHALER 18 MC* inhale the contents of one ca* NYSTATIN-TRIAMCINOLONE 100,00* Apply 1 application to affect* GUAIFENESIN ER 600 MG TABLET,* Take 1 tablet by mouth twice * ASPIRIN 81 MG TABLET,DELAYED * Take 81 mg by mouth once christiano* AZELASTINE 137 MCG (0.1 %) NA* instill 2 sprays into each no* FLUTICASONE 50 MCG/ACTUATION * instill 2 sprays into each no* ALBUTEROL SULFATE 2.5 MG/3 ML* Use 3 mL via nebulizer every * SERTRALINE 100 MG TABLET Take 1.5 tablets by mouth onc* MONTELUKAST 10 MG TABLET Take 1 tablet by mouth daily * NITROGLYCERIN 0.4 MG SUBLINGU* Dissolve 1 tablet under the t* ADVAIR HFA 230 MCG-21 MCG/ACT* take 2 inhalations by mouth t* OMEPRAZOLE 20 MG CAPSULE,ALEX* Take 1 capsule by mouth daily* LISINOPRIL 20 MG TABLET Take 1 tablet by mouth once d* ATORVASTATIN 10 MG TABLET take 1 tablet by mouth at bed* LEFLUNOMIDE 10 MG TABLET Take 10 mg by mouth once christiano* VENTOLIN HFA 90 MCG/ACTUATION* inhale 2 puffs every 4 hours * IPRATROPIUM-ALBUTEROL 0.5 MG-* Inhale 3 mL as instructed fou* EPINEPHRINE 0.3 MG/0.3 ML INJ* Inject 0.3 mL intramuscularly* ALBUTEROL SULFATE HFA 90 MCG/* Inhale 2 Puffs as instructed. POLYETHYLENE GLYCOL 3350 17 G* Take 17 g by mouth once daily* IPRATROPIUM BROMIDE 0.02 % SO* 500 mcg (one ampule) nebulize* PRESERVISION AREDS 7,160 UNIT* Take one(1) tablet two(2) link* CEPHALEXIN 500 MG CAPSULE Take 1 capsule by mouth three* Problem List As Of Date 03/27/2018 Noted Resolved Asthma [J45.909] 08/25/2017 CHRONIC RHINITIS [J31.0] BPH without obstruction/lower urinary tract sym* ANXIETY STATE NOS [F41.1] 08/05/2014 Depression with anxiety [F41.8] Diverticulosis of colon (without mention of hem* 10/06/2012 ESOPHAGEAL REFLUX [K21.9] Internal hemorrhoids without mention of complic* 08/30/2010 Malignant neoplasm of prostate (HCC) [C61] INVALID FOR*08/05/2014 MACULAR DEGENERATION NOS [H35.30] Other specified iron deficiency anemias [D50.8] INVALID FOR*08/30/2010 Diabetes mellitus type 2, controlled, without c*INVALID FOR* Hyperlipidemia [E78.5] INVALID FOR* Personal history of colonic polyps [Z86.010] INVALID FOR*09/30/2011 More... FAMILY HX COLON CANCER [Z80.0] INVALID FOR*08/25/2017 PULMONARY NODULES [J98.4] INVALID FOR*10/06/2012 More... 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] INVALID FOR* Essential hypertension [I10] INVALID FOR* Generalized osteoarthritis of multiple sites [M*INVALID FOR* Benign neoplasm of rectum and anal canal [D12.8*INVALID FOR*10/06/2012 Benign neoplasm of colon [D12.6] INVALID FOR* Gout [M10.9] INVALID FOR* Venous insufficiency of leg [I87.2] INVALID FOR* Iron deficiency anemia due to chronic blood los*INVALID FOR* Inflammatory polyarthropathy of multiple sites *INVALID FOR* Unsteady gait [R26.81] INVALID FOR* Uncomplicated severe persistent asthma [J45.50] INVALID FOR* Other pulmonary embolism without acute cor pulm*INVALID FOR*12/29/2017 Pulmonary hypertension (HCC) [I27.20] INVALID FOR* Memory disturbance [R41.3] INVALID FOR* Obesity, Class I, BMI 30-34.9 E66.9 [E66.9] INVALID FOR* Open wound of left lower extremity [S81.802A] INVALID FOR* Prothrombin G09202L mutation (HCC) [D68.52] INVALID FOR*12/29/2017 Allergic rhinitis due to cats [J30.81] INVALID FOR* Allergic rhinitis due to dust mite [J30.89] INVALID FOR* Allergic rhinitis due to fungal spores [J30.89] INVALID FOR* Seasonal allergic rhinitis due to pollen [J30.1]INVALID FOR* Prescriptions ordered this encounter Disp Refills Start End CEPHALEXIN 500 MG CAPSULE 21 c* 0 03/27/2018 04/03/2018 Route: ORAL Sig: Take 1 capsule by mouth three times daily for 7 days. Encounter Status:Closed by VASQUEZ REYNOSO MD on 03/27/18 BASIC METABOLIC PANL Collected: 03/25/2018 Status: F Source: [place] 10:30 AM [facility] TYPE CODE TESTS RESULT OUT OF REFERENCE UNITS RANGE LAB GLU 74-99 mg/dL Glucose High 146 LAB BUN 7-21 mg/dL BUN High 24 LAB CRET 0.73-1.22 mg/dL Creatinine 1.11 LAB NA 136-144 mmol/L Sodium 136 LAB K 3.7-5.1 mmol/L Potassium 4.5 LAB CL 97-105 mmol/L Chloride 105 LAB CO2 22-30 mmol/L CO2 22 LAB AGAP 9-18 mmol/L Anion Gap 9 LAB CA 8.5-10.2 mg/dL Calcium, Total 9.9 LAB GFRAA eGFR- >60 Amer. LAB GFRNAA . eGFR-All Other Races >60 Result Comment: eGFR (Estimated GFR) Units of measure: mL/min/1.73 meters squared eGFR is derived from the reexpressed MDRD Study equation using the following parameters: serum creatinine, age, gender and race. The creatinine assay has been calibrated to be traceable to IDMS. An eGFR <60 mL/min/1.73m2 for >3 months is consistent with chronic kidney disease. Refer to KDOQI guidelines for clinical interpretation. In patients with unstable renal function, e.g. those with acute kidney injury, the eGFR may not accurately reflect actual GFR. MAGNESIUM Collected: 03/25/2018 Status: F Source: [place] 10:30 AM [facility] REPOSITORY TYPE CODE TESTS RESULT OUT OF REFERENCE UNITS RANGE LAB MG 1.7-2.3 mg/dL Low Magnesium 1.6 NT PRO BNP Collected: 03/25/2018 Status: F Source: [place] 10:30 AM [facility] REPOSITORY TYPE CODE TESTS RESULT OUT OF REFERENCE UNITS RANGE LAB PBNP <450 pg/mL PRO B Natr 100 Peptide Performed By: #### NTBNP #### [facility] [address] [id number] PROGRESS Observed: 03/25/2018 Status: COMPLETED Source: [place] 10:10 AM [facility] REPOSITORY HNO ID: [id number] Author: Reg Verma Service: (none) Author Type: Physician Type: Progress Notes Filed: 03/25/2018 3:50 PM Note Text: PERTINENT CARDIAC HISTORY Pulmonary hypertension - multifactorial Chronic asthma Aortic stenosis - moderate HTN HL Pulmonary embolism 02/02 ILD ADHERENCE TO GUIDELINES ISAAK-I or ARB for HF with prior LVEF<40 (NQF 0081) - N/A ASA or Plavix for ASHD (NQF 0067) - N/A Beta birgit for ASHD with prior ND or prior LVEF<40 (NQF 0070) - N/A Beta birgit for HF with prior LVEF<40 (NQF 0083) - N/A ISAAK-I or ARB for ASHD with DM or prior LVEF<40 (NQF 0066) - N/A Statin therapy for ASHD or FHL or DM - N/A BMI documented and plan if >25 (NQF 0421) - lifestyle recommendation form Tobacco use screening and referral (NQF 0028) - lifestyle recommendation form Recommendation for whole food, plant based diet - lifestyle recommendation form CLINICAL IMPRESSION/PLAN: Carissa Yip has shortness of breath of multiple etiologies. Some of this may be related to diastolic dysfunction and pulmonary venous hypertension. He will have basic profile, magnesium and BNP. Diuretic therapy will be offered if there is evidence of elevated pulmonary venous pressure. I've encouraged him to remain active and try to maintain a level of fitness. Heart rate is generally in the 90-100 range. He may benefit from a rate slowing calcium birgit. I've asked him to continue checking vital signs at home and contact me in a few weeks. I will see him in 6 months or as needed. Written and verbal health teaching given to patient, patient verbalizes understanding and agrees with treatment plan. DIAGNOSIS FOR VISIT: Aortic stenosis Hypertension HISTORY OF PRESENT ILLNESS Carissa Yip returns for follow-up of his exercise tolerance. He was recently found to have moderate aortic stenosis. He reports slight worsening of his chronic exercise intolerance and shortness of breath. His lung disease is quite severe as well. He denies chest tightness. He's had no edema, syncope, palpitations, amaurosis or claudication. He's had no classic TIAs. He is now off anticoagulation and is tolerating aspirin. ALLERGIES: ALLERGIES Allergen Reactions - Indocin [Indomethac* Other: See Comments Wheezing, can take naprosyn - Percocet [Oxycodone* Itching - Seasonal Allergies Other: See Comments Cat, Goats, Dust mites, molds, trees, grasses, weed, ragweed CURRENT OUTPATIENT MEDICATIONS: SPIRIVA WITH HANDIHALER 18 mcg inhalation capsule inhale the contents of one capsule in the handihaler once daily nystatin-triamcinolone (MYCOLOG II) cream Apply 1 application to affected area twice daily as needed. Genital rash. guaiFENesin (MUCINEX) 600 mg 12 hr tablet Take 1 tablet by mouth twice daily. aspirin, enteric coated (ASPIRIN, ENTERIC COATED) 81 mg EC tablet Take 81 mg by mouth once daily. azelastine (ASTELIN,ASTEPRO) 0.1% nasal spray instill 2 sprays into each nostril twice a day fluticasone (FLONASE) 50 mcg/actuation nasal spray instill 2 sprays into each nostril twice a day albuterol (PROVENTIL) 2.5 mg /3 mL (0.083 %) nebulizer solution Use 3 mL via nebulizer every 4 hours as needed. Diagnosis: severe persistent asthma J45.50 sertraline (ZOLOFT) 100 mg tablet Take 1.5 tablets by mouth once daily. montelukast (SINGULAIR) 10 mg tablet Take 1 tablet by mouth daily at bedtime. nitroglycerin sublingual (NITROQUICK) 0.4 mg SL tablet Dissolve 1 tablet under the tongue every 5 minutes as needed for Chest Pain. ADVAIR HFA 230-21 mcg/actuation inhaler take 2 inhalations by mouth twice a day Rinse mouth after use omeprazole (PRILOSEC) 20 mg capsule Take 1 capsule by mouth daily before breakfast. 1/2 hr before meal. lisinopril (ZESTRIL, PRINIVIL) 20 mg tablet Take 1 tablet by mouth once daily. atorvastatin (LIPITOR) 10 mg tablet take 1 tablet by mouth at bedtime leflunomide (ARAVA) 10 mg tablet Take 10 mg by mouth once daily. VENTOLIN HFA 90 mcg/actuation inhaler inhale 2 puffs every 4 hours if needed ipratropium-albuterol (DUONEB) 0.5 mg-3 mg(2.5 mg base)/3 mL nebu Inhale 3 mL as instructed four times daily as needed. by nebulizer over 5 to 15 minutes. EPINEPHrine (EPIPEN) 0.3 mg/0.3 mL auto-injector Inject 0.3 mL intramuscularly as needed. albuterol HFA (PROVENTIL HFA) 90 mcg/actuation inhaler Inhale 2 Puffs as instructed. polyethylene glycol 3350 (MIRALAX, GLYCOLAX) 17 gram/dose powder Take 17 g by mouth once daily. Take one (1) capful in 8oz of liquid each day. ipratropium (ATROVENT) 0.02 % nebulizer solution 500 mcg (one ampule) nebulized four times a day as needed. Vitamin A-Vit C-Vit E-Zinc-Cu (OCUVITE PRESERVISION) ORAL Tab Take one(1) tablet two(2) times daily. PHYSICAL EXAMINATION: VITAL SIGNS: BP 131/72 Pulse 97 Ht 5' 5.75 (1.67m) Wt 205 lb 14.4 oz (93.4kg) BMI 33.49 kg/(m2). Chest: Clear to auscultation. Trachea is midline. Air entry is equal. Cardiac: Regular rhythm. S1 and S2 are normal. PMI is nondisplaced. There is a 2/6 early peaking systolic ejection murmur. Carotids are brisk without bruits. JVP is less than 10 cm. Abdomen: Soft and nontender. There are no pulsatile masses or bruits. No liver enlargement. Bowel sounds are active. Extremities: Trace edema. Pulses are intact and symmetrical. Recent labs were reviewed. Renal function is normal. Echocardiogram shows preserved LV function. There is moderate aortic valve stenosis. RVSP could not be measured. Electronically Signed: Reg Verma MD March 25, 2018 10:10 AM CC: Lambert Larios MD CNOV Observed: 03/25/2018 Status: COMPLETED Source: [place] 10:00 AM [facility] REPOSITORY Office Visit (CAWSTR) CARISSA YIP ([id number]) 1940 M Date Time Provider Department 03/25/18 10:00 AM REG VERMA CAWSTR During your visit today, we recorded the following information about you: Pulse Blood pressure Weight Height 97/minute 131/72 93.4 kg 1.67 m Reg Verma MD 03/25/2018 3:50 PM Signed PERTINENT CARDIAC HISTORY Pulmonary hypertension - multifactorial Chronic asthma Aortic stenosis - moderate HTN HL Pulmonary embolism 02/02 ILD ADHERENCE TO GUIDELINES ISAAK-I or ARB for HF with prior LVEF<40 (NQF 0081) - N/A ASA or Plavix for ASHD (NQF 0067) - N/A Beta birgit for ASHD with prior ND or prior LVEF<40 (NQF 0070) - N/A Beta birgit for HF with prior LVEF<40 (NQF 0083) - N/A ISAAK-I or ARB for ASHD with DM or prior LVEF<40 (NQF 0066) - N/A Statin therapy for ASHD or FHL or DM - N/A BMI documented and plan if >25 (NQF 0421) - lifestyle recommendation form Tobacco use screening and referral (NQ 0028) - lifestyle recommendation form Recommendation for whole food, plant based diet - lifestyle recommendation form CLINICAL IMPRESSION/PLAN: Carissa Yip has shortness of breath of multiple etiologies. Some of this may be related to diastolic dysfunction and pulmonary venous hypertension. He will have basic profile, magnesium and BNP. Diuretic therapy will be offered if there is evidence of elevated pulmonary venous pressure. I've encouraged him to remain active and try to maintain a level of fitness. Heart rate is generally in the 90-100 range. He may benefit from a rate slowing calcium birgit. I've asked him to continue checking vital signs at home and contact me in a few weeks. I will see him in 6 months or as needed. Written and verbal health teaching given to patient, patient verbalizes understanding and agrees with treatment plan. DIAGNOSIS FOR VISIT: Aortic stenosis Hypertension HISTORY OF PRESENT ILLNESS Carissa Yip returns for follow-up of his exercise tolerance. He was recently found to have moderate aortic stenosis. He reports slight worsening of his chronic exercise intolerance and shortness of breath. His lung disease is quite severe as well. He denies chest tightness. He's had no edema, syncope, palpitations, amaurosis or claudication. He's had no classic TIAs. He is now off anticoagulation and is tolerating aspirin. ALLERGIES: ALLERGIES Allergen Reactions - Indocin [Indomethac* Other: See Comments Wheezing, can take naprosyn - Percocet [Oxycodone* Itching - Seasonal Allergies Other: See Comments Cat, Goats, Dust mites, molds, trees, grasses, weed, ragweed CURRENT OUTPATIENT MEDICATIONS: SPIRIVA WITH HANDIHALER 18 mcg inhalation capsule inhale the contents of one capsule in the handihaler once daily nystatin-triamcinolone (MYCOLOG II) cream Apply 1 application to affected area twice daily as needed. Genital rash. guaiFENesin (MUCINEX) 600 mg 12 hr tablet Take 1 tablet by mouth twice daily. aspirin, enteric coated (ASPIRIN, ENTERIC COATED) 81 mg EC tablet Take 81 mg by mouth once daily. azelastine (ASTELIN,ASTEPRO) 0.1% nasal spray instill 2 sprays into each nostril twice a day fluticasone (FLONASE) 50 mcg/actuation nasal spray instill 2 sprays into each nostril twice a day albuterol (PROVENTIL) 2.5 mg /3 mL (0.083 %) nebulizer solution Use 3 mL via nebulizer every 4 hours as needed. Diagnosis: severe persistent asthma J45.50 sertraline (ZOLOFT) 100 mg tablet Take 1.5 tablets by mouth once daily. montelukast (SINGULAIR) 10 mg tablet Take 1 tablet by mouth daily at bedtime. nitroglycerin sublingual (NITROQUICK) 0.4 mg SL tablet Dissolve 1 tablet under the tongue every 5 minutes as needed for Chest Pain. ADVAIR HFA 230-21 mcg/actuation inhaler take 2 inhalations by mouth twice a day Rinse mouth after use omeprazole (PRILOSEC) 20 mg capsule Take 1 capsule by mouth daily before breakfast. 1/2 hr before meal. lisinopril (ZESTRIL, PRINIVIL) 20 mg tablet Take 1 tablet by mouth once daily. atorvastatin (LIPITOR) 10 mg tablet take 1 tablet by mouth at bedtime leflunomide (ARAVA) 10 mg tablet Take 10 mg by mouth once daily. VENTOLIN HFA 90 mcg/actuation inhaler inhale 2 puffs every 4 hours if needed ipratropium-albuterol (DUONEB) 0.5 mg-3 mg(2.5 mg base)/3 mL nebu Inhale 3 mL as instructed four times daily as needed. by nebulizer over 5 to 15 minutes. EPINEPHrine (EPIPEN) 0.3 mg/0.3 mL auto-injector Inject 0.3 mL intramuscularly as needed. albuterol HFA (PROVENTIL HFA) 90 mcg/actuation inhaler Inhale 2 Puffs as instructed. polyethylene glycol 3350 (MIRALAX, GLYCOLAX) 17 gram/dose powder Take 17 g by mouth once daily. Take one (1) capful in 8oz of liquid each day. ipratropium (ATROVENT) 0.02 % nebulizer solution 500 mcg (one ampule) nebulized four times a day as needed. Vitamin A-Vit C-Vit E-Zinc-Cu (OCUVITE PRESERVISION) ORAL Tab Take one(1) tablet two(2) times daily. PHYSICAL EXAMINATION: VITAL SIGNS: BP 131/72 Pulse 97 Ht 5' 5.75 (1.67m) Wt 205 lb 14.4 oz (93.4kg) BMI 33.49 kg/(m2). Chest: Clear to auscultation. Trachea is midline. Air entry is equal. Cardiac: Regular rhythm. S1 and S2 are normal. PMI is nondisplaced. There is a 2/6 early peaking systolic ejection murmur. Carotids are brisk without bruits. JVP is less than 10 cm. Abdomen: Soft and nontender. There are no pulsatile masses or bruits. No liver enlargement. Bowel sounds are active. Extremities: Trace edema. Pulses are intact and symmetrical. Recent labs were reviewed. Renal function is normal. Echocardiogram shows preserved LV function. There is moderate aortic valve stenosis. RVSP could not be measured. Electronically Signed: Reg Verma MD March 25, 2018 10:10 AM CC: MD Reg Rao MD 03/25/2018 10:10 AM Signed LIFESTYLE CHANGE A healthy lifestyle is the most important component of your overall treatment plan. Please give serious thought to the following areas and commit to making fpc changes. EAT A WHOLE FOOD, PLANT BASED DIET The nutrition your body gets is more important than the medicine you take. What matters most is the overall way you eat. We encourage you to minimize the use of animal products (which include dairy and all meats except fatty fish) and use whole, unprocessed plant foods to provide your protein, vitamins and other nutrients. We have a lot of information to share with you on this topic. This is not a diet. It is a way of life that you will keep with you. EXERCISE REGULARLY It is not important to spend hours in the gym, lifting weights and perspiring heavily. A total of 2-3 hours per week of aerobic (causing you to be moderately short of breath) exercise is sufficient to improve your health. Talk to us before you begin a new exercise program, if you have heart disease or experience shortness of breath or chest pain. REDUCE STRESS Chronic emotional and physical stress leads to disease. Ways of reducing stress include meditation, visualization, prayer, yoga and other forms of relaxation therapy. Consistency is the ratliff. Find a technique that works for you and do it every day. CULTIVATE RELATIONSHIPS Loneliness and isolation have a major negative impact on health. Seek out others who can love, care for and nurture you. Avoid hurtful relationships. MAINTAIN IDEAL BODY WEIGHT The best way to do this is to do all the things above. Our bodies naturally find the right weight if we keep moving and feed ourselves the right food. If your BMI is greater than 25, we strongly recommend a referral to a weight management program. Please speak to us or your family physician about available programs. AVOID NICOTINE IN ALL FORMS This includes all tobacco products, whether chewed, smoked, vaped, or rubbed on the skin. Smoking cessation programs, which can make use of tobacco substitutes, medications to suppress cravings and behavior management, are available. Please contact your family physician about programs in your area. Referring Provider: LENI MCBRIDE [[id number]] Allergies As of Date: 03/25/2018 Noted Allergy Reaction INDOCIN (INDOMETHACIN SODIUM) 04/01/2011 14 - Other: See Comments Comments: Wheezing, can take naprosyn PERCOCET (OXYCODONE-ACETAMINOPHEN)01/08/2005 9 - Itching SEASONAL ALLERGIES 11/12/2012 14 - Other: See Comments Comments: Cat, Goats, Dust mites, molds, trees, grasses, weed, ragweed Date Reviewed: 03/25/2018 Reviewed by: Glenna Clay MA - Fully Assessed Reason for Visit: Established Patient [175] Primary Visit Diagnosis:Nonrheumatic aortic valve stenosis [I35.0] Other Visit Diagnosis:Essential hypertension [I10] Order(s):BASIC METABOLIC PNL [SQBMP] Order #: [id number] FUTURE MAGNESIUM BLD [SQMG1] Order #: [id number] FUTURE NT PRO BNP [SQNTBNP] Order #: [id number] FUTURE Prescriptions as of 03/25/2018 Sig: VENTOLIN HFA 90 MCG/ACTUATION* inhale 2 puffs every 4 hours * IPRATROPIUM-ALBUTEROL 0.5 MG-* Inhale 3 mL as instructed fou* EPINEPHRINE 0.3 MG/0.3 ML INJ* Inject 0.3 mL intramuscularly* ALBUTEROL SULFATE HFA 90 MCG/* Inhale 2 Puffs as instructed. POLYETHYLENE GLYCOL 3350 17 G* Take 17 g by mouth once daily* IPRATROPIUM BROMIDE 0.02 % SO* 500 mcg (one ampule) nebulize* PRESERVISION AREDS 7,160 UNIT* Take one(1) tablet two(2) link* SPIRIVA WITH HANDIHALER 18 MC* inhale the contents of one ca* NYSTATIN-TRIAMCINOLONE 100,00* Apply 1 application to affect* GUAIFENESIN ER 600 MG TABLET,* Take 1 tablet by mouth twice * ASPIRIN 81 MG TABLET,DELAYED * Take 81 mg by mouth once chirstiano* AZELASTINE 137 MCG (0.1 %) NA* instill 2 sprays into each no* FLUTICASONE 50 MCG/ACTUATION * instill 2 sprays into each no* ALBUTEROL SULFATE 2.5 MG/3 ML* Use 3 mL via nebulizer every * SERTRALINE 100 MG TABLET Take 1.5 tablets by mouth onc* MONTELUKAST 10 MG TABLET Take 1 tablet by mouth daily * NITROGLYCERIN 0.4 MG SUBLINGU* Dissolve 1 tablet under the t* ADVAIR HFA 230 MCG-21 MCG/ACT* take 2 inhalations by mouth t* OMEPRAZOLE 20 MG CAPSULE,ALEX* Take 1 capsule by mouth daily* LISINOPRIL 20 MG TABLET Take 1 tablet by mouth once d* ATORVASTATIN 10 MG TABLET take 1 tablet by mouth at bed* LEFLUNOMIDE 10 MG TABLET Take 10 mg by mouth once christiano* Problem List As Of Date 03/25/2018 Noted Resolved Asthma [J45.909] 08/25/2017 CHRONIC RHINITIS [J31.0] BPH without obstruction/lower urinary tract sym* ANXIETY STATE NOS [F41.1] 08/05/2014 Depression with anxiety [F41.8] Diverticulosis of colon (without mention of hem* 10/06/2012 ESOPHAGEAL REFLUX [K21.9] Internal hemorrhoids without mention of complic* 08/30/2010 Malignant neoplasm of prostate (HCC) [C61] INVALID FOR*08/05/2014 MACULAR DEGENERATION NOS [H35.30] Other specified iron deficiency anemias [D50.8] INVALID FOR*08/30/2010 Diabetes mellitus type 2, controlled, without c*INVALID FOR* Hyperlipidemia [E78.5] INVALID FOR* Personal history of colonic polyps [Z86.010] INVALID FOR*09/30/2011 More... FAMILY HX COLON CANCER [Z80.0] INVALID FOR*08/25/2017 PULMONARY NODULES [J98.4] INVALID FOR*10/06/2012 More... 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] INVALID FOR* Essential hypertension [I10] INVALID FOR* Generalized osteoarthritis of multiple sites [M*INVALID FOR* Benign neoplasm of rectum and anal canal [D12.8*INVALID FOR*10/06/2012 Benign neoplasm of colon [D12.6] INVALID FOR* Gout [M10.9] INVALID FOR* Venous insufficiency of leg [I87.2] INVALID FOR* Iron deficiency anemia due to chronic blood los*INVALID FOR* Inflammatory polyarthropathy of multiple sites *INVALID FOR* Unsteady gait [R26.81] INVALID FOR* Uncomplicated severe persistent asthma [J45.50] INVALID FOR* Other pulmonary embolism without acute cor pulm*INVALID FOR*12/29/2017 Pulmonary hypertension (HCC) [I27.20] INVALID FOR* Memory disturbance [R41.3] INVALID FOR* Obesity, Class I, BMI 30-34.9 E66.9 [E66.9] INVALID FOR* Open wound of left lower extremity [S81.802A] INVALID FOR* 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 EAT A WHOLE FOOD, PLANT BASED DIET The nutrition your body gets is more important than the medicine you take. What matters most is the overall way you eat. We encourage you to minimize the use of animal products (which include dairy and all meats except fatty fish) and use whole, unprocessed plant foods to provide your protein, vitamins and other nutrients. We have a lot of information to share with you on this topic. This is not a diet. It is a way of life that you will keep with you. EXERCISE REGULARLY It is not important to spend hours in the gym, lifting weights and perspiring heavily. A total of 2-3 hours per week of aerobic (causing you to be moderately short of breath) exercise is sufficient to improve your health. Talk to us before you begin a new exercise program, if you have heart disease or experience shortness of breath or chest pain. REDUCE STRESS Chronic emotional and physical stress leads to disease. Ways of reducing stress include meditation, visualization, prayer, yoga and other forms of relaxation therapy. Consistency is the ratliff. Find a technique that works for you and do it every day. CULTIVATE RELATIONSHIPS Loneliness and isolation have a major negative impact on health. Seek out others who can love, care for and nurture you. Avoid hurtful relationships. MAINTAIN IDEAL BODY WEIGHT The best way to do this is to do all the things above. Our bodies naturally find the right weight if we keep moving and feed ourselves the right food. If your BMI is greater than 25, we strongly recommend a referral to a weight management program. Please speak to us or your family physician about available programs. AVOID NICOTINE IN ALL FORMS This includes all tobacco products, whether chewed, smoked, vaped, or rubbed on the skin. Smoking cessation programs, which can make use of tobacco substitutes, medications to suppress cravings and behavior management, are available. Please contact your family physician about programs in your area. Encounter Status:Closed by REG VERMA MD on 03/25/18 WOUND CTR HISTORY Observed: 03/17/2018 Status: F Source: [facility] 1:31 PM [facility] [place] REPOSITORY [facility] [address] [id number] Wound Ctr History AND Physical 03/17/18 1328 MR#: [id number] Acct: [id number] Name: CARISSA YIP Rep #: [id number] : [id number] 77 From: Oz Cooper MD PCP: Lambert Larios MD Status: REG RCR Y Location: WC (1) Obesity Status: Chronic Current Visit: No Code(s): E66.9 - Obesity, unspecified (2) Open wound Status: Chronic Current Visit: Yes Code(s): T14.8 - Other injury of unspecified body region (3) Open wound of left lower leg Status: Chronic Current Visit: Yes Qualifiers: Encounter type: subsequent encounter Code(s): S81.802A - Unspecified open wound, left lower leg, initial encounter (4) Traumatic open wound of left lower leg Status: Chronic Current Visit: Yes Qualifiers: Encounter type: subsequent encounter Code(s): S81.802A - Unspecified open wound, left lower leg, initial encounter (5) Leg swelling Status: Chronic Current Visit: Yes Code(s): M79.89 - Other specified soft tissue disorders (6) Traumatic wound Status: Chronic Current Visit: Yes (7) Open wound of left lower extremity Status: Chronic Current Visit: Yes Qualifiers: Encounter type: subsequent encounter Code(s): S81.802A - Unspecified open wound, left lower leg, initial encounter (8) History of pulmonary embolism Status: Chronic Current Visit: No Code(s): Z86.711 - Personal history of pulmonary embolism (9) Iron deficiency anemia Status: Chronic Current Visit: No Code(s): D50.9 - Iron deficiency anemia, unspecified (10) Pulmonary nodule Status: Chronic Current Visit: No Code(s): R91.1 - Solitary pulmonary nodule (11) HLD (hyperlipidemia) Status: Chronic Current Visit: No Code(s): E78.5 - Hyperlipidemia, unspecified (12) Diverticulosis Status: Chronic Current Visit: No Code(s): K57.90 - Diverticulosis of intestine, part unspecified, without perforation or abscess without bleeding (13) Asthma Status: Chronic Current Visit: No Code(s): J45.909 - Unspecified asthma, uncomplicated (14) Hypertension Status: Chronic Current Visit: No Qualifiers: Code(s): I10 - Essential (primary) hypertension (15) Osteoarthritis Status: Chronic Current Visit: No (16) History of prostate cancer Status: Chronic Current Visit: No Code(s): Z85.46 - Personal history of malignant neoplasm of prostate (17) Allergic rhinitis Status: Chronic Current Visit: No Code(s): J30.9 - Allergic rhinitis, unspecified (18) Rheumatoid arthritis Status: Chronic Current Visit: No Code(s): M06.9 - Rheumatoid arthritis, unspecified (19) Pleural plaque Status: Chronic Current Visit: No Code(s): J92.9 - Pleural plaque without asbestos (20) Macular degeneration Status: Chronic Current Visit: No Code(s): H35.30 - Unspecified macular degeneration (21) GERD (gastroesophageal reflux disease) Status: Chronic Current Visit: No Code(s): K21.9 - Gastro- esophageal reflux disease without esophagitis History of Present Illness Chief Complaint: Recent traumatic injury of the left lower extremity with residual open wound History of Wound: This is a 77-year-old male who was in his normal state of health until September 06, 2017, at which time he sustained an injury to the left lateral calf, the result of a shovel which impaled into his left leg. The patient was rushed to the emergency department on that date, where he was treated by means of wound closure using sutures. Four days later, he had developed a cellulitis, and was admitted to the hospital for treatment. Patient was treated with antibiotics, and subsequently underwent wide surgical debridement of necrotic tissue by Dr. Homero Chin on September 12, 2017. Patient was discharged on September 16, 2017. He was discharged on Cipro 500 mg p.o. twice daily and Augmentin 875 mg p.o. twice daily. At the time of discharge, arrangements were made for the wound VAC to be the means of treatment, which has been changed every several days by home health nursing personnel. The patient had been on Xarelto and treatment for a pulmonary embolism which was diagnosed in January 2017. As result of his injury, the Xarelto has been discontinued. A noninvasive lower extremity arterial study performed in August 2016 revealed no evidence of arterial occlusive disease in the lower extremities. Therefore, there is no reason to believe there is since of any significant arterial occlusive disease. The patient has done well, showing progress with the use of the wound VAC. The patient developed cellulitis in his left lower extremity associated with fever. He was hospitalized at [facility] for approximately 4 days. He was treated initially with intravenous antibiotics consisting of Zosyn, and was subsequently discharged with a prescription for Augmentin, which has been completed. The wound VAC was discontinued, and alternative means have been implemented since that time. Collagen hydrogel is currently being applied topically every day. Past Medical History Past Medical History: Chronic Problems Obesity (Chronic) Open wound (Chronic) Open wound of left lower leg (Chronic) Traumatic open wound of left lower leg (Chronic) Leg swelling (Chronic) Traumatic wound (Chronic) Open wound of left lower extremity (Chronic) History of pulmonary embolism (Chronic) Iron deficiency anemia (Chronic) Pulmonary nodule (Chronic) HLD (hyperlipidemia) (Chronic) Diverticulosis (Chronic) Asthma (Chronic) Hypertension (Chronic) Osteoarthritis (Chronic) History of prostate cancer (Chronic) Allergic rhinitis (Chronic) Rheumatoid arthritis (Chronic) Pleural plaque (Chronic) Macular degeneration (Chronic) GERD (gastroesophageal reflux disease) (Chronic) Surgical History: - - Umbilical hernia repair, appendectomy, bilateral carpal tunnel surgery, Prostatectomy, Cataract surgery, L lens implant, L knee surgery followed by LTKR, L shoulder surgery, left total hip replacement. Allergies/Adverse Reactions: Allergies indomethacin [From Indocin] Allergy (Verified 12/06/17 11:12) Itching indomethacin sodium [From Indocin] Allergy (Verified 12/06/17 11:12) Itching oxycodone HCl [From Percocet] Allergy (Verified 12/06/17 11:12) Itching Home Medications: Ambulatory Orders Medication Instructions Recorded Albuterol Sulfate [Proventil Hfa] 2 puff IH BID 07/13/13 Azelastine HCl [Astelin] 2 spray NASAL BID 07/13/13 - Family History Sibling Diabetes, Renal Disease, - - Patient's father at the age of 76 with history of colon cancer myocardial infarction. Patient's mother at age of 86 with a history of breast cancer. Maternal Cancer Paternal Cancer Smoking Status: Never smoker Tobacco Use: Non-smoker Review of Systems Constitutional: Denies: Chills, Fever, Weight Change Eyes: Denies: Pain, Vision Change HEENT: Denies: Difficulty Hearing, Difficulty Swallowing, Sinus Congestion Cardiovascular: Denies: Chest Pain, Palpitations Respiratory: Denies: Cough, Shortness of Breath Gastrointestinal: Denies: Diarrhea, Nausea, Vomiting Genitourinary: Denies: Dysuria, Hematuria Endocrine: Denies: Heat/ Cold Intolerance, Polydipsia, Polyuria Hematologic/ Lymphatic: Denies: Easy Bruising, Easy Bleeding - Physical Exam Vital Signs Temp Pulse Resp BP 98.6 F 86 18 131/76 H 03/17/18 11:50 03/17/18 11:50 03/17/18 11:50 03/17/18 11:50 General: Alert, Oriented x3, Cooperative, No apparent distress, Well developed, Well nourished HEENT: Atraumatic, PERRLA, EOMI, Normocephalic Oral: Moist Mucosa Neck: No JVD Lungs: Normal air movement Abdomen: Non-Distended Extremities: No clubbing, No cyanosis, No edema, No Calf Tenderness, - - Traumatic wound on the left lateral calf is now completely healed and epithelialized. Skin: No rashes, No breakdown Wound Measurements and Assessment WC - Nurse 1 - General Ulcer Measurement Start: 02/17/18 11:22 Freq: Status: Active Protocol: Activity Type Activity Date Activity User E-Sign Co-Sign Detail Recorded Client Recorded Date Recorded By Document 03/17/18 11:50 DL [id number] 03/17/18 11:55 DL Wound Center Nurse 1 [Ulcer Assessment] #7 LATERAL LLE- POST OP 09/12/17 WC - Nurse 2 - General Ulcer CM Notes Start: 02/17/18 11:22 Freq: Status: Active Protocol: Activity Type Activity Date Activity User E-Sign Co-Sign Detail Recorded Client Recorded Date Recorded By Document 03/17/18 12:41 JS [id number] 03/17/18 12:47 JS Wound Center Nurse 2 [Procedure/Treatment] #7 LATERAL LLE- POST OP 09/12/17 -Time 12:41 -Correct Patient Yes Neurological: Cranial nerves II-XII grossly intact, Neuro grossly intact Psych/Mental Status: Normal Affect, Appropriate, Alert and oriented to time, place, person, mood and affect Debridement Note Post-Debridement Measurements/Treatment WC - Nurse 2 - General Ulcer CM Notes Start: 02/17/18 11:22 Freq: Status: Active Protocol: Activity Type Activity Date Activity User E-Sign Co-Sign Detail Recorded Client Recorded Date Recorded By Document 02/17/18 11:39 DV [id number] 02/17/18 11:46 DV Wound Center Nurse 2 #7 LATERAL LLE- POST OP 09/12/17 -Time 11:40 11:31 11:09 Wound Center Nurse 2 #7 LATERAL LLE- POST OP 09/12/17 -Time 12:41 -Correct Patient Yes -Correct Side, Site, Position Yes -Correct Procedure Yes -Procedure Performed No No debridement was completed today Assessment/Plan Active Problems Open wound (Chronic) Open wound of left lower leg (Chronic) Traumatic open wound of left lower leg (Chronic) Leg swelling (Chronic) Traumatic wound (Chronic) Open wound of left lower extremity (Chronic) Assessment: This is a 77-year-old male with a traumatic injury to the left lateral calf. The patient appears to be responding well to current measures, which has included the use of collagen hydrogel topically for the last several weeks. He is doing extremely well. His wound is now completely healed and epithelialized. Plan: The patient's wound is completely healed. He is to be discharged at this time. He will follow-up henceforth on an as-needed basis. He is to continue sleeping on a flat mattress at night. Compression will continue by graduated compression stockings of 20-30 mmHg compression. Patient has been advised to elevate his lower extremities for the long-term, to minimize swelling and edema. The patient is not a smoker. Influenza vaccine was not administered today. Patient stands 5 feet 4 inches tall. He weighs 210 pounds. His BMI is 36.0, which places him in a class II category. Weight loss has been recommended, with collaboration with his primary care physician. 03/17/18 1331 <Electronically signed by Oz Cooper MD> Date Oz Cooper MD CC: Signed WOUND CTR HISTORY Observed: 03/10/2018 Status: F Source: [facility] 11:30 AM [facility] [place] REPOSITORY [facility] [address] [place] [id number] Wound Ctr History AND Physical 03/10/18 1126 MR#: [id number] Acct: [id number] Name: CARISSA YIP Rep #: [id number] : [id number] From: Oz Cooper MD PCP: Lambert Larios MD Status: REG RCR Y Location: WC (1) Obesity Status: Chronic Current Visit: No Code(s): E66.9 - Obesity, unspecified (2) Open wound Status: Chronic Current Visit: Yes Code(s): T14.8 - Other injury of unspecified body region (3) Open wound of left lower leg Status: Chronic Current Visit: Yes Qualifiers: Encounter type: subsequent encounter Code(s): S81.802A - Unspecified open wound, left lower leg, initial encounter (4) Traumatic open wound of left lower leg Status: Chronic Current Visit: Yes Qualifiers: Encounter type: subsequent encounter Code(s): S81.802A - Unspecified open wound, left lower leg, initial encounter (5) Leg swelling Status: Chronic Current Visit: Yes Code(s): M79.89 - Other specified soft tissue disorders (6) Traumatic wound Status: Chronic Current Visit: Yes (7) Open wound of left lower extremity Status: Chronic Current Visit: Yes Qualifiers: Encounter type: subsequent encounter Code(s): S81.802A - Unspecified open wound, left lower leg, initial encounter (8) History of pulmonary embolism Status: Chronic Current Visit: No Code(s): Z86.711 - Personal history of pulmonary embolism (9) Iron deficiency anemia Status: Chronic Current Visit: No Code(s): D50.9 - Iron deficiency anemia, unspecified (10) Pulmonary nodule Status: Chronic Current Visit: No Code(s): R91.1 - Solitary pulmonary nodule (11) HLD (hyperlipidemia) Status: Chronic Current Visit: No Code(s): E78.5 - Hyperlipidemia, unspecified (12) Diverticulosis Status: Chronic Current Visit: No Code(s): K57.90 - Diverticulosis of intestine, part unspecified, without perforation or abscess without bleeding (13) Asthma Status: Chronic Current Visit: No Code(s): J45.909 - Unspecified asthma, uncomplicated (14) Hypertension Status: Chronic Current Visit: No Qualifiers: Code(s): I10 - Essential (primary) hypertension (15) Osteoarthritis Status: Chronic Current Visit: No (16) History of prostate cancer Status: Chronic Current Visit: No Code(s): Z85.46 - Personal history of malignant neoplasm of prostate (17) Allergic rhinitis Status: Chronic Current Visit: No Code(s): J30.9 - Allergic rhinitis, unspecified (18) Rheumatoid arthritis Status: Chronic Current Visit: No Code(s): M06.9 - Rheumatoid arthritis, unspecified (19) Pleural plaque Status: Chronic Current Visit: No Code(s): J92.9 - Pleural plaque without asbestos (20) Macular degeneration Status: Chronic Current Visit: No Code(s): H35.30 - Unspecified macular degeneration (21) GERD (gastroesophageal reflux disease) Status: Chronic Current Visit: No Code(s): K21.9 - Gastro- esophageal reflux disease without esophagitis History of Present Illness Chief Complaint: Recent traumatic injury of the left lower extremity with residual open wound History of Wound: This is a 77-year-old male who was in his normal state of health until September 06, 2017, at which time he sustained an injury to the left lateral calf, the result of a shovel which impaled into his left leg. The patient was rushed to the emergency department on that date, where he was treated by means of wound closure using sutures. Four days later, he had developed a cellulitis, and was admitted to the hospital for treatment. Patient was treated with antibiotics, and subsequently underwent wide surgical debridement of necrotic tissue by Dr. Homero Chin on September 12, 2017. Patient was discharged on September 16, 2017. He was discharged on Cipro 500 mg p.o. twice daily and Augmentin 875 mg p.o. twice daily. At the time of discharge, arrangements were made for the wound VAC to be the means of treatment, which has been changed every several days by home health nursing personnel. The patient had been on Xarelto and treatment for a pulmonary embolism which was diagnosed in January 2017. As result of his injury, the Xarelto has been discontinued. A noninvasive lower extremity arterial study performed in August 2016 revealed no evidence of arterial occlusive disease in the lower extremities. Therefore, there is no reason to believe there is since of any significant arterial occlusive disease. The patient has done well, showing progress with the use of the wound VAC. The patient developed cellulitis in his left lower extremity associated with fever. He was hospitalized at [facility] [facility] for approximately 4 days. He was treated initially with intravenous antibiotics consisting of Zosyn, and was subsequently discharged with a prescription for Augmentin, which has been completed. The wound VAC was discontinued, and alternative means have been implemented since that time. Collagen hydrogel is currently being applied topically every day. Past Medical History Past Medical History: Chronic Problems Obesity (Chronic) Open wound (Chronic) Open wound of left lower leg (Chronic) Traumatic open wound of left lower leg (Chronic) Leg swelling (Chronic) Traumatic wound (Chronic) Open wound of left lower extremity (Chronic) History of pulmonary embolism (Chronic) Iron deficiency anemia (Chronic) Pulmonary nodule (Chronic) HLD (hyperlipidemia) (Chronic) Diverticulosis (Chronic) Asthma (Chronic) Hypertension (Chronic) Osteoarthritis (Chronic) History of prostate cancer (Chronic) Allergic rhinitis (Chronic) Rheumatoid arthritis (Chronic) Pleural plaque (Chronic) Macular degeneration (Chronic) GERD (gastroesophageal reflux disease) (Chronic) Surgical History: - - Umbilical hernia repair, appendectomy, bilateral carpal tunnel surgery, Prostatectomy, Cataract surgery, L lens implant, L knee surgery followed by LTKR, L shoulder surgery, left total hip replacement. Allergies/Adverse Reactions: Allergies indomethacin [From Indocin] Allergy (Verified 12/06/17 11:12) Itching indomethacin sodium [From Indocin] Allergy (Verified 12/06/17 11:12) Itching oxycodone HCl [From Percocet] Allergy (Verified 12/06/17 11:12) Itching Home Medications: Ambulatory Orders Medication Instructions Recorded Albuterol Sulfate [Proventil Hfa] 2 puff IH BID 07/13/13 Azelastine HCl [Astelin] 2 spray NASAL BID 07/13/13 - Family History Sibling Diabetes, Renal Disease, - - Patient's father at the age of 76 with history of colon cancer myocardial infarction. Patient's mother at age of 86 with a history of breast cancer. Maternal Cancer Paternal Cancer Smoking Status: Never smoker Tobacco Use: Non-smoker Review of Systems Constitutional: Denies: Chills, Fever, Weight Change Eyes: Denies: Pain, Vision Change HEENT: Denies: Difficulty Hearing, Difficulty Swallowing, Sinus Congestion Cardiovascular: Denies: Chest Pain, Palpitations Respiratory: Denies: Cough, Shortness of Breath Gastrointestinal: Denies: Diarrhea, Nausea, Vomiting Genitourinary: Denies: Dysuria, Hematuria Endocrine: Denies: Heat/ Cold Intolerance, Polydipsia, Polyuria Hematologic/ Lymphatic: Denies: Easy Bruising, Easy Bleeding - Physical Exam Vital Signs Temp Pulse Resp BP 97.4 F L 82 18 134/66 H 03/10/18 10:57 03/10/18 10:57 03/10/18 10:57 03/10/18 10:57 General: Alert, Oriented x3, Cooperative, No apparent distress, Well developed, Well nourished HEENT: Atraumatic, PERRLA, EOMI, Normocephalic Oral: Moist Mucosa Neck: No JVD Lungs: Normal air movement Abdomen: Non-Distended Extremities: No clubbing, No cyanosis, No Calf Tenderness, - - Minimal swelling in the mid is noted in the left lower extremity. The wound is now nearly totally healed. There is only a very small residual area which is yet to heal. There is no sign of infection or cellulitis. Dimensions are documented elsewhere. There is a small amount of bioburden. Mild ecchymosis is noted about the left knee, the result of her recent fall while descending the steps, which occurred since the patient's last visit. Skin: No rashes Wound Measurements and Assessment WC - Nurse 1 - General Ulcer Measurement Start: 02/17/18 11:22 Freq: Status: Active Protocol: Activity Type Activity Date Activity User E-Sign Co-Sign Detail Recorded Client Recorded Date Recorded By Document 03/10/18 10:57 DL [id number] 03/10/18 11:03 DL Wound Center Nurse 1 [Ulcer Assessment] #7 LATERAL LLE- POST OP 09/12/17 -Current Size (cm) - Length 0.1 -Current Size (cm) - Width 0.1 WC - Nurse 2 - General Ulcer CM Notes Start: 02/17/18 11:22 Freq: Status: Active Protocol: Activity Type Activity Date Activity User E-Sign Co-Sign Detail Recorded Client Recorded Date Recorded By Document 03/10/18 11:09 JODI [id number] 03/10/18 11:21 JODI Wound Center Nurse 2 [Procedure/Treatment] #7 LATERAL LLE- POST OP 09/12/17 Musculoskeletal: No Muscle Wasting Neurological: Cranial nerves II-XII grossly intact, Neuro grossly intact Psych/Mental Status: Normal Affect, Appropriate, Alert and oriented to time, place, person, mood and affect Debridement Note Post-Debridement Measurements/Treatment WC - Nurse 2 - General Ulcer CM Notes Start: 02/17/18 11:22 Freq: Status: Active Protocol: Activity Type Activity Date Activity User E-Sign Co-Sign Detail Recorded Client Recorded Date Recorded By Wound Center Nurse 2 #7 LATERAL LLE- POST OP 09/12/17 -Time 11:40 11:31 11:09 Laterality: Left - Lateral calf Type of Debridement: Excisional debridement Anesthesia Used: 4% Lidocaine Solution Depth: Down to and including healthy tissue, in the subcutaneous layer Percentage of wound debrided: 100 Instrument Used: 7mm curette Severity: Fat Layer Exposed Amount of bleeding with debridement: Mild Bleeding Controlled with: Compression and gauze Patient tolerated procedure well Assessment/Plan Active Problems Open wound (Chronic) Open wound of left lower leg (Chronic) Traumatic open wound of left lower leg (Chronic) Leg swelling (Chronic) Traumatic wound (Chronic) Open wound of left lower extremity (Chronic) Assessment: This is a 77-year-old male with a traumatic injury to the left lateral calf. The patient appears to be responding well to current measures, which has included the use of collagen hydrogel topically for the last several weeks. He is doing extremely well. His wound appears generally healed, with very fresh epithelium over most recently healed portion of the wound. Plan: The patient is to apply gauze to the freshly epithelialized portion of the wound. Collagen hydrogel and Adaptic will be applied daily on the very small residual portion of the wound which is yet to heal. He is to continue with leg elevation as much as possible. He is to continue sleeping on a flat mattress at night. Compression will be applied by graduated compression stockings of 20-30 mmHg compression. Patient will return in 1 week for reassessment. It is anticipated that the patient will be completely healed at that time. Intake of a well-balanced and nutritious diet has been advised. Patient has been advised to elevate his lower extremities, to minimize swelling and edema. The patient is not a smoker. Influenza vaccine was not administered today. Patient stands 5 feet 4 inches tall. He weighs 210 pounds. His BMI is 36.0, which places him in a class II category. Weight loss has been recommended, with collaboration with his primary care physician. 03/10/18 [id number] <Electronically signed by Oz Cooper MD> Date Oz Cooper MD CC: Signed CNPN Observed: 03/05/2018 Status: COMPLETED Source: [place] 12:00 AM [facility] REPOSITORY Telephone (PULWS) CARISSA YIP ([id number]) 1940 M Date Time Provider Department 03/05/18 LENI MCBRIDE PULMNAE During your visit today, we recorded the following information about you: Leni Mcbride PA-C 03/05/2018 9:36 AM Signed NM Lung Vent/Perf VQ, 03/04/18 RESULTS: Multiple matched ventilation/perfusion abnormalities are identified in both lungs. No mismatched perfusion defects are seen. IMPRESSION: THE STUDY IS MOST CONSISTENT WITH A LOW PROBABILITY OF PULMONARY EMBOLISM. CXR, 03/04/18 IMPRESSION: Atelectasis or fibrosis at both lung bases. ?Calcific pleural plaque formation. ?No evidence of developing abnormality or acute process. RESULT: Lines, tubes, and devices: ?None. Lungs and pleura: ?No consolidation. No lung mass. No pleural effusion. ? Bilateral calcific pleural plaque formation is noted and is unchanged. ? Minimal atelectasis or fibrosis is seen at both lung bases. ?This is also stable. Cardiomediastinal silhouette: ?Normal cardiomediastinal silhouette. Recommendations: - Discussed above results with patient. - I would like to proceed with an echocardiogram to evaluate any valve abnormalities or pulmonary HTN. - Discussed possibility of requiring a flexible bronchoscopy. Patient would like to wait until follow up appointment and echocardiogram are done to consider bronchoscopy. Leni Mcbride PA-C [facility] [place] [address] [phone] Ines Tsang PSR 03/05/2018 12:20 PM Signed Scheduled patient for an Echo on Tuesday, March 06, 2018. Spoke with patient and he agreed with date and time. Allergies As of Date: 03/05/2018 Noted Allergy Reaction INDOCIN (INDOMETHACIN SODIUM) 04/01/2011 14 - Other: See Comments Comments: Wheezing, can take naprosyn PERCOCET (OXYCODONE-ACETAMINOPHEN)01/08/2005 9 - Itching SEASONAL ALLERGIES 11/12/2012 14 - Other: See Comments Comments: Cat, Goats, Dust mites, molds, trees, grasses, weed, ragweed Date Reviewed: 03/04/2018 Reviewed by: Heather Lozano - Partially Assessed Reason for Visit: Results [95] Primary Visit Diagnosis:Dyspnea and respiratory abnormalities [R06.00, R06.89] Order(s):ROCHELLE [922384] Order #: [id number]: 1 FUTURE Prescriptions as of 03/05/2018 Sig: SPIRIVA WITH HANDIHALER 18 MC* inhale the contents of one ca* NYSTATIN-TRIAMCINOLONE 100,00* Apply 1 application to affect* GUAIFENESIN ER 600 MG TABLET,* Take 1 tablet by mouth twice * ASPIRIN 81 MG TABLET,DELAYED * Take 81 mg by mouth once christiano* AZELASTINE 137 MCG (0.1 %) NA* instill 2 sprays into each no* FLUTICASONE 50 MCG/ACTUATION * instill 2 sprays into each no* ALBUTEROL SULFATE 2.5 MG/3 ML* Use 3 mL via nebulizer every * SERTRALINE 100 MG TABLET Take 1.5 tablets by mouth onc* MONTELUKAST 10 MG TABLET Take 1 tablet by mouth daily * NITROGLYCERIN 0.4 MG SUBLINGU* Dissolve 1 tablet under the t* ADVAIR HFA 230 MCG-21 MCG/ACT* take 2 inhalations by mouth t* OMEPRAZOLE 20 MG CAPSULE,ALEX* Take 1 capsule by mouth daily* LISINOPRIL 20 MG TABLET Take 1 tablet by mouth once d* ATORVASTATIN 10 MG TABLET take 1 tablet by mouth at bed* LEFLUNOMIDE 10 MG TABLET Take 10 mg by mouth once christiano* VENTOLIN HFA 90 MCG/ACTUATION* inhale 2 puffs every 4 hours * IPRATROPIUM-ALBUTEROL 0.5 MG-* Inhale 3 mL as instructed fou* EPINEPHRINE 0.3 MG/0.3 ML INJ* Inject 0.3 mL intramuscularly* ALBUTEROL SULFATE HFA 90 MCG/* Inhale 2 Puffs as instructed. 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 FAMILY HX COLON CANCER [Z80.0] INVALID FOR*08/25/2017 PULMONARY NODULES [J98.4] INVALID FOR*10/06/2012 More... 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] INVALID FOR* Essential hypertension [I10] INVALID FOR* Generalized osteoarthritis of multiple sites [M*INVALID FOR* Benign neoplasm of rectum and anal canal [D12.8*INVALID FOR*10/06/2012 Benign neoplasm of colon [D12.6] INVALID FOR* Gout [M10.9] INVALID FOR* Venous insufficiency of leg [I87.2] INVALID FOR* Iron deficiency anemia due to chronic blood los*INVALID FOR* Inflammatory polyarthropathy of multiple sites *INVALID FOR* Unsteady gait [R26.81] INVALID FOR* Uncomplicated severe persistent asthma [J45.50] INVALID FOR* Other pulmonary embolism without acute cor pulm*INVALID FOR*12/29/2017 Pulmonary hypertension (HCC) [I27.20] INVALID FOR* Memory disturbance [R41.3] INVALID FOR* Obesity, Class I, BMI 30-34.9 E66.9 [E66.9] INVALID FOR* Open wound of left lower extremity [S81.802A] INVALID FOR* 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] INVALID FOR*12/29/2017 Allergic rhinitis due to cats [J30.81] INVALID FOR* Allergic rhinitis due to dust mite [J30.89] INVALID FOR* Allergic rhinitis due to fungal spores [J30.89] INVALID FOR* Seasonal allergic rhinitis due to pollen [J30.1]INVALID FOR* Encounter Status:Closed by LENI MCBRIDE on 03/05/18 PROGRESS Observed: 03/04/2018 Status: COMPLETED Source: [place] 11:14 AM [facility] REPOSITORY HNO ID: [id number] Author: Paula PrakashRt) [place] Service: (none) Author Type: Mold Tooling Technician Type: Progress Notes Filed: 03/04/2018 11:14 AM Note Text: Radiology Service Progress Note PATIENT NAME: Carissa Yip DATE OF SERVICE: March 04, 2018 TIME: 11:14 AM PATIENT IDENTITY VERIFICATION COMPLETED USING TWO (2) METHODS: Patient confirmed name verbally and ID band matches. and Patient confirmed name verbally. PATIENT GENDER DATA: Male PATIENT RELEVANT IMPLANT DATA REVIEWED: Not Applicable RADIOLOGY DEPARTMENT: General X-ray: Exam(s) Completed: Chest X-Ray PERIPHERAL IV DATA: Not applicable SIGNED BY: RT Janet March 04, 2018 11:14 AM PROGRESS Observed: 03/04/2018 Status: COMPLETED Source: [place] 11:11 AM [facility] REPOSITORY HNO ID: [id number] Author: Heather Lozano Service: (none) Author Type: (none) Type: Progress Notes Filed: 03/04/2018 11:12 AM Note Text: RADIOLOGY SERVICE PROGRESS NOTE SERVICE DATE: 03/04/2018 SERVICE TIME: 11:11 AM PATIENT IDENTITY VERIFICATION COMPLETED USING TWO (2) METHODS: Patient confirmed name and Date of verbally. PATIENT GENDER DATA: .male ALLERGIES: Reviewed and unchanged MEDICATIONS REVIEWED: Yes PATIENT RELEVANT IMPLANT DATA REVIEWED: Not Applicable CREATININE: Creatinine Date Value Ref Range Status 12/06/2017 1.10 0.73 - 1.22 mg/dL Final 07/21/2017 1.18 0.73 - 1.22 mg/dL Final 02/28/2017 1.30 (H) 0.73 - 1.22 mg/dL Final Creatinine, Whole Blood (iSTAT) Date Value Ref Range Status 08/25/2017 1.10 0.70 - 1.40 mg/dL Final eGFR-All Other Races Date Value Ref Range Status 12/06/2017 >60 . Final Comment: eGFR (Estimated GFR) Units of measure: mL/min/1.73 meters squared eGFR is derived from the reexpressed MDRD Study equation using the following parameters: serum creatinine, age, gender and race. The creatinine assay has been calibrated to be traceable to IDMS. An eGFR <60 mL/min/1.73m2 for >3 months is consistent with chronic kidney disease. Refer to KDOQI guidelines for clinical interpretation. In patients with unstable renal function, e.g. those with acute kidney injury, the eGFR may not accurately reflect actual GFR. eGFR- Date Value Ref Range Status 12/06/2017 >60 Final P.O.C.T. RESULTS: N/A March 04, [address] PERFORMED: No IV SITE: Ambulatory: A peripheral IV was started in the Right antecubital site with a Angio cath: 22 gauge. POST EXAM PIV STATUS: Discontinued PROCEDURE TYPE: VQ Scan: 0.8 mCi of Tc99m DTPA was inhaled at 10:25. 5.8 mCi of Tc99m MAA was administered IV at 10:55. ADMINISTRATION TIME: PATIENT DISCHARGED TO: Ambulatory patient, left AR department area. A Diagnostic radioactive procedure has taken place, with no further precautions necessary other than routine body substance precautions. More information regarding radiation safety can be found using this link: [email or web address] SIGNATURE: Heather Lozano PATIENT NAME: Carissa Yip DATE: March 04, 2018 TIME: 11:11 AM PAGER/CONTACT #: XR CHEST 2V FRONTAL/LAT Observed: 03/04/2018 Status: F Source: [place] 11:11 AM [facility] REPOSITORY * * *Final Report* * * DATE OF EXAM: Mar 04 2018 11:11AM WRX [id number] - XR CHEST 2V FRONTAL/LAT / PROCEDURE REASON: Pneumonia of left lower lobe due to infectious organism (HCC) * * * * Physician Interpretation * * * * EXAMINATION: CHEST RADIOGRAPH (2 VIEW FRONTAL and LATERAL) CLINICAL HISTORY: Pneumonia of left lower lobe due to infectious organism (HCC) MQ: XC2_5 Comparison: 02/20/2018 RESULT: Lines, tubes, and devices: None. Lungs and pleura: No consolidation. No lung mass. No pleural effusion. Bilateral calcific pleural plaque formation is noted and is unchanged. Minimal atelectasis or fibrosis is seen at both lung bases. This is also stable. Cardiomediastinal silhouette: Normal cardiomediastinal silhouette. IMPRESSION: Atelectasis or fibrosis at both lung bases. Calcific pleural plaque formation. No evidence of developing abnormality or acute process. Orthotics Prosthetics Assistant: [facility] Transcribe Date/Time: Mar 04 2018 12:52P Dictated by : GÓMEZ ROBLES MD This examination was interpreted and the report reviewed and electronically signed by: GÓMEZ ROBLES MD on Mar 04 2018 12:59PM EST [id number] NM LUNG VENT / Observed: 03/04/2018 Status: F Source: [place] PERF VQ 11:08 AM [facility] REPOSITORY * * *Final Report* * * DATE OF EXAM: Mar 04 2018 11:08AM [address] LUNG VENT / PERF VQ / PROCEDURE REASON: multiple diagnoses * * * * Physician Interpretation * * * * LUNG SCAN CLINICAL HISTORY: Assess for pulmonary embolism. TECHNIQUE: 0.8 mCi Tc 99m DTPA aerosol inhaled 5.8 mCi Tc 99m MAA IV Comparison chest x-ray: 02/20/2018. RESULTS: Multiple matched ventilation/perfusion abnormalities are identified in both lungs. No mismatched perfusion defects are seen. IMPRESSION: THE STUDY IS MOST CONSISTENT WITH A LOW PROBABILITY OF PULMONARY EMBOLISM. Orthotics Prosthetics Assistant: [facility] Transcribe Date/Time: Mar 04 2018 11:11A Dictated by : KARINA WILSON MD This examination was interpreted and the report reviewed and electronically signed by: KARINA WILSON MD on Mar 04 2018 11:11AM EST [id number] Observed: 03/02/2018 Status: COMPLETED Source: [place] 10:30 AM [facility] REPOSITORY Office Visit (PULMWS) CARISSA YIP ([id number]) 1940 M Date Time Provider Department 03/02/18 10:30 AM LENI MCBRIDE During your visit today, we recorded the following information about you: Pulse Respiration Blood pressure Weight 108/minute 15/minute 136/70 93 kg Melissa Kumar CASSIE 03/02/2018 10:09 AM Signed Leni Mcbride PA-C 03/02/2018 10:32 AM Signed [facility] Res[facility] [place], 03/02/18: INTERVAL HISTORY: The patient is here for follow up of asthma and cough; the last Pulmonary Clinic visit was 02/12/18. The patient admits to compliance with prescribed maintenance Rx: Advair 2 inhalations twice daily and Spiriva 1 capsule daily. Consistently using Flonase and Astelin nasal spray. There have been no ED visit(s) for the management of asthma exacerbation. No hospitalization(s) for management of asthma exacerbation. Has used no prednisone for the management of exacerbation. 2-3 times weekly rescue bronchodilator use, with good relief. No nocturnal awakenings per month with asthma symptoms. Cough has not changed. No sputum. No hemoptysis or pleuritic chest pain. Minimal wheezing. Exertional dyspnea seems worse than last office visit. Continues to walk dog, but stopping more frequently to catch breath than he typically has to. No disruption in taste or voice associated with use of inhaled corticosteroid. No tremor, palpitations, or muscle cramping associated with bronchodilator inhalation. PMH: Updated with patient today. FAMH: Updated with patient today. SOCH: Updated with patient today. ROS: General: Generally feels good. Appetite good. No fevers or chills. Eyes, Ears, nose, throat: No post nasal drip, rhinorrhea, purulent nasal discharge, epistaxis. No hoarseness. Vision stable. Cardiac: No angina, edema. Sleeping in recliner orthopnea. GI: No heartburn, dysphagia, diarrhea. Uro/PUMP ERECTOR: No dysuria, hesitancy, nocturia. Musculoskeletal: No pain. Neuro: No headache, focal weakness, tremor. Skin: No rash. Otherwise negative. Immunization History Administered Date(s) Administered Influenza Seasonal - High Dose - Age 65+ 01/25/2014 01/20/2016 01/30/2017 02/09/2018 Influenza Seasonal Inj Age 3+ 02/01/2015 Influenza Vaccine, Split-Non Spec 03/17/2006 03/17/2007 03/23/2008 02/11/2009 03/08/2010 02/16/2011 02/21/2012 01/21/2013 Pneumococcal-13 Vac Conjugate 02/22/2015 10/10/2015 Pneumovax 06/04/2000 09/17/2010 TD Adult 11/10/2006 Tdap (Age 7+) 09/05/2017 Tetanus Diphtheria Booster (Age >7) Pres Free 02/22/2016 Zostavax 04/01/2011 Allergies were verified and updated, and medications were reconciled with the patient at this visit. PHYSICAL EXAMINATION: BP 136/70 Pulse 108 Resp 15 Wt 205 lb (93.0kg) SpO2 95% Gen: No acute distress. Cooperative with examination. ENT: Nares clear. Oral hygeine good. Pharynx clear. No sign or oral thrush. Resp: No stridor, accessory respiratory muscle use. No crackles or rubs. Scattered expiratory wheezes. CV: Regular rythm. Heart tones normal. Radial pulses normal. Abd: Non distended. MSK: No kyphoscoliosis. Ext: Warm and well perfused. No cyanosis. LLE bandage: c/d/i. No calf tenderness bilaterally. 1+ pitting edema bilaterally. Skin: No rash, eczema, urticaria. Neuro: Mental status normal. No tremor. DATA REVIEW: CXR, 02/20/18 IMPRESSION: Stable chest. Chronic interstitial lung changes without interval change. No acute cardiopulmonary process. RESULT: Lines, tubes, and devices: ?None. Lungs and pleura: Chronic interstitial lung changes with scattered fibrocalcific plaque as well as calcified residual of prior granulomatous infection again identified. Bibasilar fibrotic stranding especially at the right lung base posteriorly is again noted and grossly unchanged. Chronic eventration right hemidiaphragm stable. Lungs and pleura: There is no focal consolidation or acute pleural process. There is no overt pulmonary edema. Cardiomediastinal silhouette: ?Unchanged cardiomediastinal silhouette. Other: ?The bony structures are intact. IMPRESSION and RECOMMENDATIONS: Asthma, severe persistent. 1. Symptoms slightly improved after Prednisone. 2. Continue maintenance Rx: Advair 2 inhalations twice daily with Aerochamber. Rinse mouth after each use to help prevent oral thrush. Spiriva 1 capsule daily. 3. Continue Albuterol HFA inhaler, 2 inhalations 10?15 minutes prior to activities associated with shortness of breath, and as needed for rescue relief of shortness of breath or wheezing, up to 4 times daily. 4. Up to date on annual influenza and pneumonia vaccines. Dypsnea. 1. Based on patients history of bilateral PE and minimal response to treatment for asthma exacerbation, will check VQ scan to assess for PE. Based on Wells criteria patient at moderate risk for PE. Further recommendations to follow. I addressed the questions of the patient, and he expressed understanding and acceptance of my answers. Leni Mcbride PA-C [facility] Res[facility] [place] [facility] [address] [place], [place] [address] [place] [phone] Leni Mcbride PA-C 03/02/2018 10:31 AM Signed Asthma, severe persistent. 1. Symptoms slightly improved after Prednisone. 2. Continue maintenance Rx: Advair 2 inhalations twice daily with Aerochamber. Rinse mouth after each use to help prevent oral thrush. Spiriva 1 capsule daily. 3. Continue Albuterol HFA inhaler, 2 inhalations 10?15 minutes prior to activities associated with shortness of breath, and as needed for rescue relief of shortness of breath or wheezing, up to 4 times daily. 4. Up to date on annual influenza and pneumonia vaccines. Dypsnea. 1. Based on patients history of bilateral PE and minimal response to treatment for asthma exacerbation, will check VQ scan to assess for PE. Based on Wells criteria patient at moderate risk for PE. Further recommendations to follow. Referring Provider: SELF [[id number]] Allergies As of Date: 03/02/2018 Noted Allergy Reaction INDOCIN (INDOMETHACIN SODIUM) 04/01/2011 14 - Other: See Comments Comments: Wheezing, can take naprosyn PERCOCET (OXYCODONE-ACETAMINOPHEN)01/08/2005 9 - Itching SEASONAL ALLERGIES 11/12/2012 14 - Other: See Comments Comments: Cat, Goats, Dust mites, molds, trees, grasses, weed, ragweed Date Reviewed: 03/02/2018 Reviewed by: Leni Mcbride - Fully Assessed Reason for Visit: Established Patient [175] Cmt: continued shortness of breath Primary Visit Diagnosis:Dyspnea and respiratory abnormalities [R06.00, R06.89] Other Visit Diagnoses:Severe persistent asthma, unspecified whether complicated [J45.50] History of pulmonary embolism [Z86.711] Order(s):NM LUNG VENT / PERF VQ [[id number]] Order #: [id number] FUTURE Prescriptions as of 03/02/2018 Sig: SPIRIVA WITH HANDIHALER 18 MC* inhale the contents of one ca* NYSTATIN-TRIAMCINOLONE 100,00* Apply 1 application to affect* GUAIFENESIN ER 600 MG TABLET,* Take 1 tablet by mouth twice * ASPIRIN 81 MG TABLET,DELAYED * Take 81 mg by mouth once christiano* AZELASTINE 137 MCG (0.1 %) NA* instill 2 sprays into each no* FLUTICASONE 50 MCG/ACTUATION * instill 2 sprays into each no* ALBUTEROL SULFATE 2.5 MG/3 ML* Use 3 mL via nebulizer every * SERTRALINE 100 MG TABLET Take 1.5 tablets by mouth onc* MONTELUKAST 10 MG TABLET Take 1 tablet by mouth daily * NITROGLYCERIN 0.4 MG SUBLINGU* Dissolve 1 tablet under the t* ADVAIR HFA 230 MCG-21 MCG/ACT* take 2 inhalations by mouth t* OMEPRAZOLE 20 MG CAPSULE,ALEX* Take 1 capsule by mouth daily* LISINOPRIL 20 MG TABLET Take 1 tablet by mouth once d* ATORVASTATIN 10 MG TABLET take 1 tablet by mouth at bed* LEFLUNOMIDE 10 MG TABLET Take 10 mg by mouth once christiano* VENTOLIN HFA 90 MCG/ACTUATION* inhale 2 puffs every 4 hours * IPRATROPIUM-ALBUTEROL 0.5 MG-* Inhale 3 mL as instructed fou* EPINEPHRINE 0.3 MG/0.3 ML INJ* Inject 0.3 mL intramuscularly* ALBUTEROL SULFATE HFA 90 MCG/* Inhale 2 Puffs as instructed. 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 FAMILY HX COLON CANCER [Z80.0] INVALID FOR*08/25/2017 PULMONARY NODULES [J98.4] INVALID FOR*10/06/2012 More... 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] INVALID FOR* Essential hypertension [I10] INVALID FOR* Generalized osteoarthritis of multiple sites [M*INVALID FOR* Benign neoplasm of rectum and anal canal [D12.8*INVALID FOR*10/06/2012 Benign neoplasm of colon [D12.6] INVALID FOR* Gout [M10.9] INVALID FOR* Venous insufficiency of leg [I87.2] INVALID FOR* Iron deficiency anemia due to chronic blood los*INVALID FOR* Inflammatory polyarthropathy of multiple sites *INVALID FOR* Unsteady gait [R26.81] INVALID FOR* Uncomplicated severe persistent asthma [J45.50] INVALID FOR* Other pulmonary embolism without acute cor pulm*INVALID FOR*12/29/2017 Pulmonary hypertension (HCC) [I27.20] INVALID FOR* Memory disturbance [R41.3] INVALID FOR* Obesity, Class I, BMI 30-34.9 E66.9 [E66.9] INVALID FOR* Open wound of left lower extremity [S81.802A] INVALID FOR* 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 1. Symptoms slightly improved after Prednisone. 2. Continue maintenance Rx: Advair 2 inhalations twice daily with Aerochamber. Rinse mouth after each use to help prevent oral thrush. Spiriva 1 capsule daily. 3. Continue Albuterol HFA inhaler, 2 inhalations 10?15 minutes prior to activities associated with shortness of breath, and as needed for rescue relief of shortness of breath or wheezing, up to 4 times daily. 4. Up to date on annual influenza and pneumonia vaccines. Dypsnea. 1. Based on patients history of bilateral PE and minimal response to treatment for asthma exacerbation, will check VQ scan to assess for PE. Based on Wells criteria patient at moderate risk for PE. Further recommendations to follow. Visit Notes: >> Melissa Kumar LPN Mon Mar 02, 2018 10:08 AM Status: Signed Medications Discontinued During This Encounter predniSONE 10 mg tablet pack 20 t* 0 02/12/2018 03/02/2018 Si tablets once a day for 5 days Disc: Course of therapy completed Disposition: Return in about 4 weeks (around 03/30/2018). Follow-up and Disposition History Recorded Encounter Status:Closed by LENI MCBRIDE on 03/02/18 PROGRESS Observed: 03/02/2018 Status: COMPLETED Source: [place] 10:09 AM [facility] REPOSITORY O ID: [id number] Author: Leni Mcbride Service: (none) Author Type: Physician Truck Repair Supervisor Type: Progress Notes Filed: 03/02/2018 10:32 AM Note Text: [facility] Respiratory [place], 03/02/18: INTERVAL HISTORY: The patient is here for follow up of asthma and cough; the last Pulmonary Clinic visit was 02/12/18. The patient admits to compliance with prescribed maintenance Rx: Advair 2 inhalations twice daily and Spiriva 1 capsule daily. Consistently using Flonase and Astelin nasal spray. There have been no ED visit(s) for the management of asthma exacerbation. No hospitalization(s) for management of asthma exacerbation. Has used no prednisone for the management of exacerbation. 2-3 times weekly rescue bronchodilator use, with good relief. No nocturnal awakenings per month with asthma symptoms. Cough has not changed. No sputum. No hemoptysis or pleuritic chest pain. Minimal wheezing. Exertional dyspnea seems worse than last office visit. Continues to walk dog, but stopping more frequently to catch breath than he typically has to. No disruption in taste or voice associated with use of inhaled corticosteroid. No tremor, palpitations, or muscle cramping associated with bronchodilator inhalation. PMH: Updated with patient today. FAMH: Updated with patient today. SOCH: Updated with patient today. ROS: General: Generally feels good. Appetite good. No fevers or chills. Eyes, Ears, nose, throat: No post nasal drip, rhinorrhea, purulent nasal discharge, epistaxis. No hoarseness. Vision stable. Cardiac: No angina, edema. Sleeping in recliner orthopnea. GI: No heartburn, dysphagia, diarrhea. Uro/PUMP ERECTOR: No dysuria, hesitancy, nocturia. Musculoskeletal: No pain. Neuro: No headache, focal weakness, tremor. Skin: No rash. Otherwise negative. Immunization History Administered Date(s) Administered Influenza Seasonal - High Dose - Age 65+ 01/25/2014 01/20/2016 01/30/2017 02/09/2018 Influenza Seasonal Inj Age 3+ 02/01/2015 Influenza Vaccine, Split-Non Spec 03/17/2006 03/17/2007 03/23/2008 02/11/2009 03/08/2010 02/16/2011 02/21/2012 01/21/2013 Pneumococcal-13 Vac Conjugate 02/22/2015 10/10/2015 Pneumovax 06/04/2000 09/17/2010 TD Adult 11/10/2006 Tdap (Age 7+) 09/05/2017 Tetanus Diphtheria Booster (Age >7) Pres Free 02/22/2016 Zostavax 04/01/2011 Allergies were verified and updated, and medications were reconciled with the patient at this visit. PHYSICAL EXAMINATION: BP 136/70 Pulse 108 Resp 15 Wt 205 lb (93.0kg) SpO2 95% Gen: No acute distress. Cooperative with examination. ENT: Nares clear. Oral hygeine good. Pharynx clear. No sign or oral thrush. Resp: No stridor, accessory respiratory muscle use. No crackles or rubs. Scattered expiratory wheezes. CV: Regular rythm. Heart tones normal. Radial pulses normal. Abd: Non distended. MSK: No kyphoscoliosis. Ext: Warm and well perfused. No cyanosis. LLE bandage: c/d/i. No calf tenderness bilaterally. 1+ pitting edema bilaterally. Skin: No rash, eczema, urticaria. Neuro: Mental status normal. No tremor. DATA REVIEW: CXR, 02/20/18 IMPRESSION: Stable chest. Chronic interstitial lung changes without interval change. No acute cardiopulmonary process. RESULT: Lines, tubes, and devices: ?None. Lungs and pleura: Chronic interstitial lung changes with scattered fibrocalcific plaque as well as calcified residual of prior granulomatous infection again identified. Bibasilar fibrotic stranding especially at the right lung base posteriorly is again noted and grossly unchanged. Chronic eventration right hemidiaphragm stable. Lungs and pleura: There is no focal consolidation or acute pleural process. There is no overt pulmonary edema. Cardiomediastinal silhouette: ?Unchanged cardiomediastinal silhouette. Other: ?The bony structures are intact. IMPRESSION and RECOMMENDATIONS: Asthma, severe persistent. 1. Symptoms slightly improved after Prednisone. 2. Continue maintenance Rx: Advair 2 inhalations twice daily with Aerochamber. Rinse mouth after each use to help prevent oral thrush. Spiriva 1 capsule daily. 3. Continue Albuterol HFA inhaler, 2 inhalations 10?15 minutes prior to activities associated with shortness of breath, and as needed for rescue relief of shortness of breath or wheezing, up to 4 times daily. 4. Up to date on annual influenza and pneumonia vaccines. Dypsnea. 1. Based on patients history of bilateral PE and minimal response to treatment for asthma exacerbation, will check VQ scan to assess for PE. Based on Wells criteria patient at moderate risk for PE. Further recommendations to follow. I addressed the questions of the patient, and he expressed understanding and acceptance of my answers. Leni Mcbride PA-C [facility] Respiratory [place] [facility] [address] [place] [address] WOUND CTR HISTORY Observed: 02/24/2018 Status: F Source: [facility] 11:59 AM [facility] REPOSITORY [facility] [address] [place] [address] Wound Ctr History AND Physical 02/24/18 1155 MR#: [id number] Acct: [id number] Name: CARISSA YIP Rep #: [id number] : 1940 77 From: Oz Cooper MD PCP: Lambert Larios MD Status: REG RCR Y Location: WC (1) Obesity Status: Chronic Current Visit: No Code(s): E66.9 - Obesity, unspecified (2) Open wound Status: Chronic Current Visit: Yes Code(s): T14.8 - Other injury of unspecified body region (3) Open wound of left lower leg Status: Chronic Current Visit: Yes Qualifiers: Encounter type: subsequent encounter Code(s): S81.802A - Unspecified open wound, left lower leg, initial encounter (4) Traumatic open wound of left lower leg Status: Chronic Current Visit: Yes Qualifiers: Encounter type: subsequent encounter Code(s): S81.802A - Unspecified open wound, left lower leg, initial encounter (5) Leg swelling Status: Chronic Current Visit: Yes Code(s): M79.89 - Other specified soft tissue disorders (6) Traumatic wound Status: Chronic Current Visit: Yes (7) Open wound of left lower extremity Status: Chronic Current Visit: Yes Qualifiers: Encounter type: subsequent encounter Code(s): S81.802A - Unspecified open wound, left lower leg, initial encounter (8) History of pulmonary embolism Status: Chronic Current Visit: No Code(s): Z86.711 - Personal history of pulmonary embolism (9) Iron deficiency anemia Status: Chronic Current Visit: No Code(s): D50.9 - Iron deficiency anemia, unspecified (10) Pulmonary nodule Status: Chronic Current Visit: No Code(s): R91.1 - Solitary pulmonary nodule (11) HLD (hyperlipidemia) Status: Chronic Current Visit: No Code(s): E78.5 - Hyperlipidemia, unspecified (12) Diverticulosis Status: Chronic Current Visit: No Code(s): K57.90 - Diverticulosis of intestine, part unspecified, without perforation or abscess without bleeding (13) Asthma Status: Chronic Current Visit: No Code(s): J45.909 - Unspecified asthma, uncomplicated (14) Hypertension Status: Chronic Current Visit: No Qualifiers: Code(s): I10 - Essential (primary) hypertension (15) Osteoarthritis Status: Chronic Current Visit: No (16) History of prostate cancer Status: Chronic Current Visit: No Code(s): Z85.46 - Personal history of malignant neoplasm of prostate (17) Allergic rhinitis Status: Chronic Current Visit: No Code(s): J30.9 - Allergic rhinitis, unspecified (18) Rheumatoid arthritis Status: Chronic Current Visit: No Code(s): M06.9 - Rheumatoid arthritis, unspecified (19) Pleural plaque Status: Chronic Current Visit: No Code(s): J92.9 - Pleural plaque without asbestos (20) Macular degeneration Status: Chronic Current Visit: No Code(s): H35.30 - Unspecified macular degeneration (21) GERD (gastroesophageal reflux disease) Status: Chronic Current Visit: No Code(s): K21.9 - Gastro- esophageal reflux disease without esophagitis History of Present Illness Chief Complaint: Recent traumatic injury of the left lower extremity with residual open wound History of Wound: This is a 77-year-old male who was in his normal state of health until September 06, 2017, at which time he sustained an injury to the left lateral calf, the result of a shovel which impaled into his left leg. The patient was rushed to the emergency department on that date, where he was treated by means of wound closure using sutures. Four days later, he had developed a cellulitis, and was admitted to the hospital for treatment. Patient was treated with antibiotics, and subsequently underwent wide surgical debridement of necrotic tissue by Dr. Homero Chin on September 12, 2017. Patient was discharged on September 16, 2017. He was discharged on Cipro 500 mg p.o. twice daily and Augmentin 875 mg p.o. twice daily. At the time of discharge, arrangements were made for the wound VAC to be the means of treatment, which has been changed every several days by home health nursing personnel. The patient had been on Xarelto and treatment for a pulmonary embolism which was diagnosed in January 2017. As result of his injury, the Xarelto has been discontinued. A noninvasive lower extremity arterial study performed in August 2016 revealed no evidence of arterial occlusive disease in the lower extremities. Therefore, there is no reason to believe there is since of any significant arterial occlusive disease. The patient has done well, showing progress with the use of the wound VAC. The patient developed cellulitis in his left lower extremity associated with fever. He was hospitalized at [facility] for approximately 4 days. He was treated initially with intravenous antibiotics consisting of Zosyn, and was subsequently discharged with a prescription for Augmentin, which has been completed. The wound VAC was discontinued, and alternative means have been implemented since that time. Collagen hydrogel is currently being applied topically every day. Past Medical History Past Medical History: Chronic Problems Obesity (Chronic) Open wound (Chronic) Open wound of left lower leg (Chronic) Traumatic open wound of left lower leg (Chronic) Leg swelling (Chronic) Traumatic wound (Chronic) Open wound of left lower extremity (Chronic) History of pulmonary embolism (Chronic) Iron deficiency anemia (Chronic) Pulmonary nodule (Chronic) HLD (hyperlipidemia) (Chronic) Diverticulosis (Chronic) Asthma (Chronic) Hypertension (Chronic) Osteoarthritis (Chronic) History of prostate cancer (Chronic) Allergic rhinitis (Chronic) Rheumatoid arthritis (Chronic) Pleural plaque (Chronic) Macular degeneration (Chronic) GERD (gastroesophageal reflux disease) (Chronic) Surgical History: - - Umbilical hernia repair, appendectomy, bilateral carpal tunnel surgery, Prostatectomy, Cataract surgery, L lens implant, L knee surgery followed by LTKR, L shoulder surgery, left total hip replacement. Allergies/Adverse Reactions: Allergies indomethacin [From Indocin] Allergy (Verified 12/06/17 11:12) Itching indomethacin sodium [From Indocin] Allergy (Verified 12/06/17 11:12) Itching oxycodone HCl [From Percocet] Allergy (Verified 12/06/17 11:12) Itching Home Medications: Ambulatory Orders Medication Instructions Recorded Albuterol Sulfate [Proventil Hfa] 2 puff IH BID 07/13/13 Azelastine HCl [Astelin] 2 spray NASAL BID 07/13/13 - Family History Sibling Diabetes, Renal Disease, - - Patient's father at the age of 76 with history of colon cancer myocardial infarction. Patient's mother at age of 86 with a history of breast cancer. Maternal Cancer Paternal Cancer Smoking Status: Never smoker Tobacco Use: Non-smoker Review of Systems Constitutional: Denies: Chills, Fever, Weight Change Eyes: Denies: Pain, Vision Change HEENT: Denies: Difficulty Hearing, Difficulty Swallowing, Sinus Congestion Cardiovascular: Denies: Chest Pain, Palpitations Respiratory: Denies: Cough, Shortness of Breath Gastrointestinal: Denies: Diarrhea, Nausea, Vomiting Genitourinary: Denies: Dysuria, Hematuria Endocrine: Denies: Heat/ Cold Intolerance, Polydipsia, Polyuria Hematologic/ Lymphatic: Denies: Easy Bruising, Easy Bleeding - Physical Exam Vital Signs Temp Pulse Resp BP 97.7 F L 93 20 H 124/66 H 02/24/18 11:09 02/24/18 11:09 02/24/18 11:09 02/24/18 11:09 General: Alert, Oriented x3, Cooperative, No apparent distress, Well developed, Well nourished HEENT: Atraumatic, PERRLA, EOMI, Normocephalic Oral: Moist Mucosa Neck: No JVD Lungs: Normal air movement Abdomen: Non-Distended Extremities: No clubbing, No cyanosis, No Calf Tenderness, - - Lumbar no swelling is noted in the left lower extremity. The traumatic wound on the left lateral calf now appears to be generally epithelialized. The new epithelial layer is somewhat reddened and fresh. There does not appear to be any open portion of the wound remaining. There is no sign of infection or cellulitis. Skin: No rashes Wound Measurements and Assessment - Nurse 1 - General Ulcer Measurement Start: 02/17/18 11:22 Freq: Status: Active Protocol: Activity Type Activity Date Activity User E-Sign Co-Sign Detail Recorded Client Recorded Date Recorded By Document 02/24/18 11:09 DAPHNE [id number] 02/24/18 11:15 DAPHNE Wound Center Nurse 1 [Ulcer Assessment] #7 LATERAL LLE- POST OP 09/12/17 -Current Size (cm) - Length 0.1 -Current Size (cm) - Width 0.1 WC - Nurse 2 - General Ulcer CM Notes Start: 02/17/18 11:22 Freq: Status: Active Protocol: Activity Type Activity Date Activity User E-Sign Co-Sign Detail Recorded Client Recorded Date Recorded By Document 02/24/18 11:31 JODI [id number] 02/24/18 11:48 JODI Wound Center Nurse 2 [Procedure/Treatment] Musculoskeletal: No Muscle Wasting Neurological: Cranial nerves II-XII grossly intact, Neuro grossly intact Psych/Mental Status: Normal Affect, Appropriate, Alert and oriented to time, place, person, mood and affect Debridement Note Post-Debridement Measurements/Treatment WC - Nurse 2 - General Ulcer CM Notes Start: 02/17/18 11:22 Freq: Status: Active Protocol: Activity Type Activity Date Activity User E-Sign Co-Sign Detail Wound Center Nurse 2 #7 LATERAL LLE- POST OP 09/12/17 -Time 11:40 11:31 No debridement was completed today Assessment/Plan Active Problems Open wound (Chronic) Open wound of left lower leg (Chronic) Traumatic open wound of left lower leg (Chronic) Leg swelling (Chronic) Traumatic wound (Chronic) Open wound of left lower extremity (Chronic) Assessment: This is a 77-year-old male with a traumatic injury to the left lateral calf. The patient appears to be responding well to current measures, which has included the use of collagen hydrogel topically for the last several weeks. He is doing extremely well. His wound appears generally healed, with very fresh epithelium over most recently healed portion of the wound. Plan: The patient is to apply gauze to the freshly epithelialized wound. He is to continue with leg elevation as much as possible. He is to continue sleeping on a flat mattress at night. Compression will be applied by a dual layer of Tubigrip. Patient will return in 2 weeks for reassessment. It is anticipated that the patient will be completely healed at that time. Intake of a well-balanced and nutritious diet has been advised. Patient has been advised to elevate his lower extremities, to minimize swelling and edema. The patient is not a smoker. Influenza vaccine was not administered today. Patient stands 5 feet 4 inches tall. He weighs 210 pounds. His BMI is 36.0, which places him in a class II category. Weight loss has been recommended, with collaboration with his primary care physician. 02/24/18 1159 <Electronically signed by Oz Cooper MD> Date Oz Cooper MD CC: Signed XR CHEST 2V FRONTAL/LAT Observed: 02/20/2018 Status: F Source: [place] 1:12 PM [facility] RE[facility] * * *Final Report* * * DATE OF EXAM: Feb 20 2018 1:12PM WOX [id number] - XR CHEST 2V FRONTAL/LAT / PROCEDURE REASON: Cough * * * * Physician Interpretation * * * * EXAMINATION: CHEST RADIOGRAPH (2 VIEW FRONTAL and LATERAL) CLINICAL HISTORY: Cough MQ: XC2_5 Comparison: Comparison is made to prior chest dated 29 August 2017 and dating back to 27 March 2017 RESULT: Lines, tubes, and devices: None. Lungs and pleura: Chronic interstitial lung changes with scattered fibrocalcific plaque as well as calcified residual of prior granulomatous infection again identified. Bibasilar fibrotic stranding especially at the right lung base posteriorly is again noted and grossly unchanged. Chronic eventration right hemidiaphragm stable. Lungs and pleura: There is no focal consolidation or acute pleural process. There is no overt pulmonary edema. Cardiomediastinal silhouette: Unchanged cardiomediastinal silhouette. Other: The bony structures are intact. IMPRESSION: Stable chest. Chronic interstitial lung changes without interval change. No acute cardiopulmonary process. Orthotics Prosthetics Assistant: PSCB Transcribe Date/Time: Feb 20 2018 1:40P Dictated by : TALA GONZALEZ MD This examination was interpreted and the report reviewed and electronically signed by: TALA GONZALEZ MD on Feb 20 2018 1:43PM EST [id number] PROGRESS Observed: 02/20/2018 Status: COMPLETED Source: [place] 1:05 PM [facility] REPOSITORY HNO ID: [id number] Author: Davida Chopra (Blake Woo Service: (none) Author Type: Mold Tooling Technician Type: Progress Notes Filed: 02/20/2018 1:13 PM Note Text: Radiology Service Progress Note PATIENT NAME: Carissa Yip DATE OF SERVICE: February 20, 2018 TIME: 1:05 PM PATIENT IDENTITY VERIFICATION COMPLETED USING TWO (2) METHODS: Patient confirmed name verbally and Date of . PATIENT GENDER DATA: Male PATIENT RELEVANT IMPLANT DATA REVIEWED: Not Applicable RADIOLOGY DEPARTMENT: General X-ray: Exam(s) Completed: Chest X-Ray PERIPHERAL IV DATA: Not applicable SIGNED BY: RT Darren February 20, 2018 1:05 PM WOUND CTR HISTORY Observed: 02/17/2018 Status: F Source: [facility] 11:58 AM [facility] REPOSITORY [facility] [address] [place] [address] Wound Ctr History AND Physical 02/17/18 1152 MR#: [id number] Acct: [id number] Name: CARISSA YIP Rep #: [id number] : 1940 77 From: Oz Cooper MD PCP: Lambert Larios MD Status: REG RCR Y Location: WC (1) Obesity Status: Chronic Current Visit: No Code(s): E66.9 - Obesity, unspecified (2) Open wound Status: Chronic Current Visit: Yes Code(s): T14.8 - Other injury of unspecified body region (3) Open wound of left lower leg Status: Chronic Current Visit: Yes Qualifiers: Encounter type: subsequent encounter Code(s): S81.802A - Unspecified open wound, left lower leg, initial encounter (4) Traumatic open wound of left lower leg Status: Chronic Current Visit: Yes Qualifiers: Encounter type: subsequent encounter Code(s): S81.802A - Unspecified open wound, left lower leg, initial encounter (5) Leg swelling Status: Chronic Current Visit: Yes Code(s): M79.89 - Other specified soft tissue disorders (6) Traumatic wound Status: Chronic Current Visit: Yes (7) Open wound of left lower extremity Status: Chronic Current Visit: Yes Qualifiers: Encounter type: subsequent encounter Code(s): S81.802A - Unspecified open wound, left lower leg, initial encounter (8) Cellulitis of left leg Status: Resolved Current Visit: No Code(s): L03.116 - Cellulitis of left lower limb (9) History of pulmonary embolism Status: Chronic Current Visit: No Code(s): Z86.711 - Personal history of pulmonary embolism (10) 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 Status: Resolved Current Visit: No Code(s): L97.929 - Non-pressure chronic ulcer of unspecified part of left lower leg with unspecified severity; L08.9 - Local infection of the skin and subcutaneous tissue, unspecified (11) Iron deficiency anemia Status: Chronic Current Visit: No Code(s): D50.9 - Iron deficiency anemia, unspecified (12) Pulmonary nodule Status: Chronic Current Visit: No Code(s): R91.1 - Solitary pulmonary nodule (13) HLD (hyperlipidemia) Status: Chronic Current Visit: No Code(s): E78.5 - Hyperlipidemia, unspecified (14) Diverticulosis Status: Chronic Current Visit: No Code(s): K57.90 - Diverticulosis of intestine, part unspecified, without perforation or abscess without bleeding (15) Asthma Status: Chronic Current Visit: No Code(s): J45.909 - Unspecified asthma, uncomplicated (16) Hypertension Status: Chronic Current Visit: No Qualifiers: Code(s): I10 - Essential (primary) hypertension (17) Osteoarthritis Status: Chronic Current Visit: No (18) Penetrating injury right leg Status: Resolved Current Visit: No (19) History of prostate cancer Status: Chronic Current Visit: No Code(s): Z85.46 - Personal history of malignant neoplasm of prostate (20) Allergic rhinitis Status: Chronic Current Visit: No Code(s): J30.9 - Allergic rhinitis, unspecified (21) Rheumatoid arthritis Status: Chronic Current Visit: No Code(s): M06.9 - Rheumatoid arthritis, unspecified (22) Pleural plaque Status: Chronic Current Visit: No Code(s): J92.9 - Pleural plaque without asbestos (23) Macular degeneration Status: Chronic Current Visit: No Code(s): H35.30 - Unspecified macular degeneration (24) GERD (gastroesophageal reflux disease) Status: Chronic Current Visit: No Code(s): K21.9 - Gastro- esophageal reflux disease without esophagitis History of Present Illness Chief Complaint: Recent traumatic injury of the left lower extremity with residual open wound History of Wound: This is a 77-year-old male who was in his normal state of health until September 06, 2017, at which time he sustained an injury to the left lateral calf, the result of a shovel which impaled into his left leg. The patient was rushed to the emergency department on that date, where he was treated by means of wound closure using sutures. Four days later, he had developed a cellulitis, and was admitted to the hospital for treatment. Patient was treated with antibiotics, and subsequently underwent wide surgical debridement of necrotic tissue by Dr. Homero Chin on September 12, 2017. Patient was discharged on September 16, 2017. He was discharged on Cipro 500 mg p.o. twice daily and Augmentin 875 mg p.o. twice daily. At the time of discharge, arrangements were made for the wound VAC to be the means of treatment, which has been changed every several days by home health nursing personnel. The patient had been on Xarelto and treatment for a pulmonary embolism which was diagnosed in January 2017. As result of his injury, the Xarelto has been discontinued. A noninvasive lower extremity arterial study performed in August 2016 revealed no evidence of arterial occlusive disease in the lower extremities. Therefore, there is no reason to believe there is since of any significant arterial occlusive disease. The patient has done well, showing progress with the use of the wound VAC. The patient developed cellulitis in his left lower extremity associated with fever. He was hospitalized at [facility] for approximately 4 days. He was treated initially with intravenous antibiotics consisting of Zosyn, and was subsequently discharged with a prescription for Augmentin, which has been completed. The wound VAC was discontinued, and alternative means have been implemented since that time. Collagen hydrogel is currently being applied topically every day. Past Medical History Past Medical History: Chronic Problems Obesity (Chronic) Open wound (Chronic) Open wound of left lower leg (Chronic) Traumatic open wound of left lower leg (Chronic) Leg swelling (Chronic) Traumatic wound (Chronic) Open wound of left lower extremity (Chronic) History of pulmonary embolism (Chronic) Iron deficiency anemia (Chronic) Pulmonary nodule (Chronic) HLD (hyperlipidemia) (Chronic) Diverticulosis (Chronic) Asthma (Chronic) Hypertension (Chronic) Osteoarthritis (Chronic) History of prostate cancer (Chronic) Allergic rhinitis (Chronic) Rheumatoid arthritis (Chronic) Pleural plaque (Chronic) Macular degeneration (Chronic) GERD (gastroesophageal reflux disease) (Chronic) Surgical History: - - Umbilical hernia repair, appendectomy, bilateral carpal tunnel surgery, Prostatectomy, Cataract surgery, L lens implant, L knee surgery followed by LTKR, L shoulder surgery, left total hip replacement. Allergies/Adverse Reactions: Allergies indomethacin [From Indocin] Allergy (Verified 12/06/17 11:12) Itching indomethacin sodium [From Indocin] Allergy (Verified 12/06/17 11:12) Itching oxycodone HCl [From Percocet] Allergy (Verified 12/06/17 11:12) Itching Home Medications: Ambulatory Orders Medication Instructions Recorded Albuterol Sulfate [Proventil Hfa] 2 puff IH BID 07/13/13 Azelastine HCl [Astelin] 2 spray NASAL BID 07/13/13 - Family History Sibling Diabetes, Renal Disease, - - Patient's father at the age of 76 with history of colon cancer myocardial infarction. Patient's mother at age of 86 with a history of breast cancer. Maternal Cancer Paternal Cancer Smoking Status: Never smoker Tobacco Use: Non-smoker Review of Systems Constitutional: Denies: Chills, Fever, Weight Change Eyes: Denies: Pain, Vision Change HEENT: Denies: Difficulty Hearing, Difficulty Swallowing, Sinus Congestion Cardiovascular: Denies: Chest Pain, Palpitations Respiratory: Denies: Cough, Shortness of Breath Gastrointestinal: Denies: Diarrhea, Nausea, Vomiting Genitourinary: Denies: Dysuria, Hematuria Endocrine: Denies: Heat/ Cold Intolerance, Polydipsia, Polyuria Hematologic/ Lymphatic: Denies: Easy Bruising, Easy Bleeding - Physical Exam Vital Signs Temp Pulse Resp BP 97.8 F 94 16 139/70 H 02/17/18 11:24 02/17/18 11:24 02/17/18 11:24 02/17/18 11:24 General: Alert, Oriented x3, Cooperative, No apparent distress, Well developed, Well nourished HEENT: Atraumatic, PERRLA, EOMI, Normocephalic Oral: Moist Mucosa Neck: No JVD Lungs: Normal air movement Abdomen: Non-Distended Extremities: No clubbing, No cyanosis, No Calf Tenderness, - - The wound on the left lateral calf is now nearly completely healed. Only a very small area is yet to epithelialize. The dimensions are documented elsewhere. There is no sign of infection or cellulitis. Swelling and edema are minimal. Skin: No rashes Wound Measurements and Assessment - Nurse 1 - General Ulcer Measurement Start: 02/17/18 11:22 Freq: Status: Active Protocol: Activity Type Activity Date Activity User E-Sign Co-Sign Detail Recorded Client Recorded Date Recorded By Document 02/17/18 11:24 HAMZAH [id number] 02/17/18 11:26 HAMZAH Wound Center Nurse 1 [Ulcer Assessment] #7 LATERAL LLE- POST OP 09/12/17 -Combined with other wound No -Current Size (cm) - Length 0.1 -Current Size (cm) - Width 0.1 - Nurse 2 - General Ulcer CM Notes Start: 02/17/18 11:22 Freq: Status: Active Protocol: Activity Type Activity Date Activity User E-Sign Co-Sign Detail Recorded Client Recorded Date Recorded By Document 02/17/18 11:39 DV [id number] 02/17/18 11:46 DV Musculoskeletal: No Muscle Wasting Neurological: Cranial nerves II-XII grossly intact, Neuro grossly intact Psych/Mental Status: Normal Affect, Appropriate, Alert and oriented to time, place, person, mood and affect Debridement Note Post-Debridement Measurements/Treatment WC - Nurse 2 - General Ulcer CM Notes Start: 02/17/18 11:22 Freq: Status: Active Protocol: Activity Type Activity Date Activity User E-Sign Co-Sign Detail Recorded Client Recorded Date Recorded By Document 02/17/18 11:39 DV [id number] 02/17/18 11:46 DV Wound Center Nurse 2 #7 LATERAL LLE- POST OP 09/12/17 -Time 11:40 -Correct Patient Yes Laterality: Left - Lateral calf Type of Debridement: Selective debridement Anesthesia Used: 4% Lidocaine Solution Depth: Down to and including healthy tissue, in the subcutaneous layer Percentage of wound debrided: 100 Instrument Used: 7mm curette Severity: Limited To Skin Breakdown Amount of bleeding with debridement: Mild Bleeding Controlled with: Compression and gauze Patient tolerated procedure well Assessment/Plan Active Problems Open wound (Chronic) Open wound of left lower leg (Chronic) Traumatic open wound of left lower leg (Chronic) Leg swelling (Chronic) Traumatic wound (Chronic) Open wound of left lower extremity (Chronic) Assessment: This is a 77-year-old male with a traumatic injury to the left lateral calf. The patient appears to be responding well to current measures, which has included the use of collagen hydrogel topically for the last several weeks. He is doing extremely well. Healing within the next several weeks appears likely. Plan: We are to continue collagen hydrogel applied topically on a daily basis. This will be covered by Adaptic and gauze. Patient has shown significant progress. Patient will return in 2 weeks for reassessment. It is anticipated that the patient will be completely healed at that time. Intake of a well-balanced and nutritious diet has been advised. Patient has been advised to elevate his lower extremities, to minimize swelling and edema. The patient is not a smoker. Influenza vaccine was not administered today. Patient stands 5 feet 4 inches tall. He weighs 210 pounds. His BMI is 36.0, which places him in a class II category. Weight loss has been recommended, with collaboration with his primary care physician. 02/17/18 1157 <Electronically signed by zO Cooper MD> Date Oz Cooper MD CC: Signed CNOV Observed: 02/12/2018 Status: COMPLETED Source: [place] 3:00 PM [facility] REPOSITORY Office Visit (PULMWS) CARISSA YIP ([id number]) 1940 M Date Time Provider Department 02/12/18 3:00 PM LENI MCBRIDE During your visit today, we recorded the following information about you: Pulse Respiration Blood pressure Weight 86/minute 14/minute 134/80 92.5 kg Leni Mcbride PA-C 02/12/2018 2:[address] [facility] [place], 02/12/18: INTERVAL HISTORY: The patient is here for follow up of asthma and cough; the last Pulmonary Clinic visit was 12/19/17. The patient admits to compliance with prescribed maintenance Rx: Advair 2 inhalations twice daily and Spiriva 1 capsule daily. Consistently using Flonase and Astelin nasal spray. There have been no ED visit(s) for the management of asthma exacerbation. No hospitalization(s) for management of asthma exacerbation. Has used no prednisone for the management of exacerbation. 2-3 times weekly rescue bronchodilator use, with good relief. No nocturnal awakenings per month with asthma symptoms. Cough increased over the last couple weeks. No sputum. Minimal wheezing. Exertional dyspnea stable. Reports asthma triggered by changes in temperatures. No disruption in taste or voice associated with use of inhaled corticosteroid. No tremor, palpitations, or muscle cramping associated with bronchodilator inhalation. PMH: Updated with patient today. FAMH: Updated with patient today. SOCH: Updated with patient today. ROS: General: Generally feels good. Appetite good. No fevers or chills. Eyes, Ears, nose, throat: No post nasal drip, rhinorrhea, purulent nasal discharge, epistaxis. No hoarseness. Vision stable. Cardiac: No angina, edema, orthopnea. GI: No heartburn, dysphagia, diarrhea. Uro/PUMP ERECTOR: No dysuria, hesitancy, nocturia. Musculoskeletal: No pain. Neuro: No headache, focal weakness, tremor. Skin: No rash. Otherwise negative. Immunization History Administered Date(s) Administered Influenza Seasonal - High Dose - Age 65+ 01/25/2014 01/20/2016 01/30/2017 02/09/2018 Influenza Seasonal Inj Age 3+ 02/01/2015 Influenza Vaccine, Split-Non Spec 03/17/2006 03/17/2007 03/23/2008 02/11/2009 03/08/2010 02/16/2011 02/21/2012 01/21/2013 Pneumococcal-13 Vac Conjugate 02/22/2015 10/10/2015 Pneumovax 06/04/2000 09/17/2010 TD Adult 11/10/2006 Tdap (Age 7+) 09/05/2017 Tetanus Diphtheria Booster (Age >7) Pres Free 02/22/2016 Zostavax 04/01/2011 Allergies were verified and updated, and medications were reconciled with the patient at this visit. PHYSICAL EXAMINATION: BP 134/80 Pulse 86 Resp 14 Wt 204 lb (92.5kg) SpO2 96% Gen: No acute distress. Cooperative with examination. ENT: Nares clear. Oral hygeine good. Pharynx clear. No sign or oral thrush. Resp: No stridor, accessory respiratory muscle use. No crackles or rubs. Scattered expiratory wheezes. CV: Regular rythm. Heart tones normal. Radial pulses normal. Abd: Non distended. MSK: No kyphoscoliosis. Ext: Warm and well perfused. No cyanosis. LLE bandage: c/d/i. Skin: No rash, eczema, urticaria. Neuro: Mental status normal. No tremor. DATA REVIEW: No new data to review. IMPRESSION and RECOMMENDATIONS: Asthma, severe persistent, with acute exacerbation. I do not think an antibiotic and CXR are warranted at this time. 1. Start prednisone 40 mg daily for 5 days. Patient experiences side effects of altered moods if on longer period of times. If you are not improved after completing prednisone, call the office. 2. Continue maintenance Rx: Advair 2 inhalations twice daily with Aerochamber. Rinse mouth after each use to help prevent oral thrush. Spiriva 1 capsule daily. 3. Continue Albuterol HFA inhaler, 2 inhalations 10?15 minutes prior to activities associated with shortness of breath, and as needed for rescue relief of shortness of breath or wheezing, up to 4 times daily. 4. Up to date on annual influenza and pneumonia vaccines. 5. Re-assess in 3 months, sooner if needed. If cough increases, sputum changes color or amount, increased shortness of breath, please call our office. I addressed the questions of the patient, and he expressed understanding and acceptance of my answers. Leni Mcbride PA-C [facility] [place] [address] [phone] Leni Mcbride PA-C 02/12/2018 2:36 PM Signed IMPRESSION and RECOMMENDATIONS: Asthma, severe persistent, with acute exacerbation. I do not think an antibiotic and CXR are warranted at this time. 1. Start prednisone 40 mg daily for 5 days. Patient experiences side effects of altered moods if on longer period of times. If you are not improved after completing prednisone, call the office. 2. Continue maintenance Rx: Advair 2 inhalations twice daily with Aerochamber. Rinse mouth after each use to help prevent oral thrush. Spiriva 1 capsule daily. 3. Continue Albuterol HFA inhaler, 2 inhalations 10?15 minutes prior to activities associated with shortness of breath, and as needed for rescue relief of shortness of breath or wheezing, up to 4 times daily. 4. Up to date on annual influenza and pneumonia vaccines. 5. Re-assess in 3 months, sooner if needed. If cough increases, sputum changes color or amount, increased shortness of breath, please call our office. Referring Provider: SELF [[id number]] Allergies As of Date: 02/12/2018 Noted Allergy Reaction INDOCIN (INDOMETHACIN SODIUM) 04/01/2011 14 - Other: See Comments Comments: Wheezing, can take naprosyn PERCOCET (OXYCODONE-ACETAMINOPHEN)01/08/2005 9 - Itching SEASONAL ALLERGIES 11/12/2012 14 - Other: See Comments Comments: Cat, Goats, Dust mites, molds, trees, grasses, weed, ragweed Date Reviewed: 02/12/2018 Reviewed by: Leni Mcbride - Fully Assessed Reason for Visit: Established Patient [175] Cmt: cough Primary Visit Diagnosis:Severe persistent asthma with acute exacerbation [J45.51] Order(s):predniSONE 10 mg tablet pack4 tablets once a day for 5 daysDisp: 20 tabletRfl: 0 SPIROMETRY BASELINE ONLY [[id number]] Order #: [id number] FUTURE NITRIC OXIDE, EXHALED [[id number]] Order #: [id number] FUTURE Prescriptions as of 02/12/2018 Sig: NYSTATIN-TRIAMCINOLONE 100,00* Apply 1 application to affect* GUAIFENESIN ER 600 MG TABLET,* Take 1 tablet by mouth twice * ASPIRIN 81 MG TABLET,DELAYED * Take 81 mg by mouth once christiano* AZELASTINE 137 MCG (0.1 %) NA* instill 2 sprays into each no* FLUTICASONE 50 MCG/ACTUATION * instill 2 sprays into each no* ALBUTEROL SULFATE 2.5 MG/3 ML* Use 3 mL via nebulizer every * SPIRIVA WITH HANDIHALER 18 MC* inhale the contents of one ca* NITROGLYCERIN 0.4 MG SUBLINGU* Dissolve 1 tablet under the t* ADVAIR HFA 230 MCG-21 MCG/ACT* take 2 inhalations by mouth t* OMEPRAZOLE 20 MG CAPSULE,ALEX* Take 1 capsule by mouth daily* LISINOPRIL 20 MG TABLET Take 1 tablet by mouth once d* ATORVASTATIN 10 MG TABLET take 1 tablet by mouth at bed* LEFLUNOMIDE 10 MG TABLET Take 10 mg by mouth once christiano* VENTOLIN HFA 90 MCG/ACTUATION* inhale 2 puffs every 4 hours * IPRATROPIUM-ALBUTEROL 0.5 MG-* Inhale 3 mL as instructed fou* EPINEPHRINE 0.3 MG/0.3 ML INJ* Inject 0.3 mL intramuscularly* IPRATROPIUM BROMIDE 0.02 % SO* 500 mcg (one ampule) nebulize* PRESERVISION AREDS 7,160 UNIT* Take one(1) tablet two(2) link* PREDNISONE 10 MG TABLETS IN A* 4 tablets once a day for 5 da* SERTRALINE 100 MG TABLET Take 1.5 tablets by mouth onc* MONTELUKAST 10 MG TABLET Take 1 tablet by mouth daily * ALBUTEROL SULFATE HFA 90 MCG/* Inhale 2 Puffs as instructed. POLYETHYLENE GLYCOL 3350 17 G* Take 17 g by mouth once daily* Problem List As Of Date 02/12/2018 Noted Resolved Asthma [J45.909] 08/25/2017 CHRONIC RHINITIS [J31.0] BPH without obstruction/lower urinary tract sym* ANXIETY STATE NOS [F41.1] 08/05/2014 Depression with anxiety [F41.8] Diverticulosis of colon (without mention of hem* 10/06/2012 ESOPHAGEAL REFLUX [K21.9] Internal hemorrhoids without mention of complic* 08/30/2010 Malignant neoplasm of prostate (HCC) [C61] INVALID FOR*08/05/2014 MACULAR DEGENERATION NOS [H35.30] Other specified iron deficiency anemias [D50.8] INVALID FOR*08/30/2010 Diabetes mellitus type 2, controlled, without c*INVALID FOR* Hyperlipidemia [E78.5] INVALID FOR* Personal history of colonic polyps [Z86.010] INVALID FOR*09/30/2011 More... FAMILY HX COLON CANCER [Z80.0] INVALID FOR*08/25/2017 PULMONARY NODULES [J98.4] INVALID FOR*10/06/2012 More... 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] INVALID FOR* Essential hypertension [I10] INVALID FOR* Generalized osteoarthritis of multiple sites [M*INVALID FOR* Benign neoplasm of rectum and anal canal [D12.8*INVALID FOR*10/06/2012 Benign neoplasm of colon [D12.6] INVALID FOR* Gout [M10.9] INVALID FOR* Venous insufficiency of leg [I87.2] INVALID FOR* Iron deficiency anemia due to chronic blood los*INVALID FOR* Inflammatory polyarthropathy of multiple sites *INVALID FOR* Unsteady gait [R26.81] INVALID FOR* Uncomplicated severe persistent asthma [J45.50] INVALID FOR* Other pulmonary embolism without acute cor pulm*INVALID FOR*12/29/2017 Pulmonary hypertension (HCC) [I27.20] INVALID FOR* Memory disturbance [R41.3] INVALID FOR* Obesity, Class I, BMI 30-34.9 E66.9 [E66.9] INVALID FOR* Open wound of left lower extremity [S81.802A] INVALID FOR* 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 I do not think an antibiotic and CXR are warranted at this time. 1. Start prednisone 40 mg daily for 5 days. Patient experiences side effects of altered moods if on longer period of times. If you are not improved after completing prednisone, call the office. 2. Continue maintenance Rx: Advair 2 inhalations twice daily with Aerochamber. Rinse mouth after each use to help prevent oral thrush. Spiriva 1 capsule daily. 3. Continue Albuterol HFA inhaler, 2 inhalations 10?15 minutes prior to activities associated with shortness of breath, and as needed for rescue relief of shortness of breath or wheezing, up to 4 times daily. 4. Up to date on annual influenza and pneumonia vaccines. 5. Re-assess in 3 months, sooner if needed. If cough increases, sputum changes color or amount, increased shortness of breath, please call our office. Prescriptions ordered this encounter Disp Refills Start End PREDNISONE 10 MG TABLETS IN A DOSE P* 20 t* 0 02/12/2018 Si tablets once a day for 5 days Medications Discontinued During This Encounter predniSONE 10 mg tablet pack 20 t* 0 01/01/2018 02/12/2018 Si tablets once a day for 5 days Disc: Course of therapy completed Disposition: Return in about 3 months (around 05/14/2018). Follow-up and Disposition History Recorded Encounter Status:Closed by LENI MCBRIDE on 02/12/18 PROGRESS Observed: 02/12/2018 Status: COMPLETED Source: [place] 2:03 PM [facility] [place] REPOSIT[facility] HNO ID: [id number] Author: Leni Mcbride Service: (none) Author Type: Physician Truck Repair Supervisor Type: Progress Notes Filed: 02/12/2018 2:36 PM Note Text: [facility] [place], 02/12/18: INTERVAL HISTORY: The patient is here for follow up of asthma and cough; the last Pulmonary Clinic visit was 12/19/17. The patient admits to compliance with prescribed maintenance Rx: Advair 2 inhalations twice daily and Spiriva 1 capsule daily. Consistently using Flonase and Astelin nasal spray. There have been no ED visit(s) for the management of asthma exacerbation. No hospitalization(s) for management of asthma exacerbation. Has used no prednisone for the management of exacerbation. 2-3 times weekly rescue bronchodilator use, with good relief. No nocturnal awakenings per month with asthma symptoms. Cough increased over the last couple weeks. No sputum. Minimal wheezing. Exertional dyspnea stable. Reports asthma triggered by changes in temperatures. No disruption in taste or voice associated with use of inhaled corticosteroid. No tremor, palpitations, or muscle cramping associated with bronchodilator inhalation. PMH: Updated with patient today. FAMH: Updated with patient today. SOCH: Updated with patient today. ROS: General: Generally feels good. Appetite good. No fevers or chills. Eyes, Ears, nose, throat: No post nasal drip, rhinorrhea, purulent nasal discharge, epistaxis. No hoarseness. Vision stable. Cardiac: No angina, edema, orthopnea. GI: No heartburn, dysphagia, diarrhea. Uro/PUMP ERECTOR: No dysuria, hesitancy, nocturia. Musculoskeletal: No pain. Neuro: No headache, focal weakness, tremor. Skin: No rash. Otherwise negative. Immunization History Administered Date(s) Administered Influenza Seasonal - High Dose - Age 65+ 01/25/2014 01/20/2016 01/30/2017 02/09/2018 Influenza Seasonal Inj Age 3+ 02/01/2015 Influenza Vaccine, Split-Non Spec 03/17/2006 03/17/2007 03/23/2008 02/11/2009 03/08/2010 02/16/2011 02/21/2012 01/21/2013 Pneumococcal-13 Vac Conjugate 02/22/2015 10/10/2015 Pneumovax 06/04/2000 09/17/2010 TD Adult 11/10/2006 Tdap (Age 7+) 09/05/2017 Tetanus Diphtheria Booster (Age >7) Pres Free 02/22/2016 Zostavax 04/01/2011 Allergies were verified and updated, and medications were reconciled with the patient at this visit. PHYSICAL EXAMINATION: BP 134/80 Pulse 86 Resp 14 Wt 204 lb (92.5kg) SpO2 96% Gen: No acute distress. Cooperative with examination. ENT: Nares clear. Oral hygeine good. Pharynx clear. No sign or oral thrush. Resp: No stridor, accessory respiratory muscle use. No crackles or rubs. Scattered expiratory wheezes. CV: Regular rythm. Heart tones normal. Radial pulses normal. Abd: Non distended. MSK: No kyphoscoliosis. Ext: Warm and well perfused. No cyanosis. LLE bandage: c/d/i. Skin: No rash, eczema, urticaria. Neuro: Mental status normal. No tremor. DATA REVIEW: No new data to review. IMPRESSION and RECOMMENDATIONS: Asthma, severe persistent, with acute exacerbation. I do not think an antibiotic and CXR are warranted at this time. 1. Start prednisone 40 mg daily for 5 days. Patient experiences side effects of altered moods if on longer period of times. If you are not improved after completing prednisone, call the office. 2. Continue maintenance Rx: Advair 2 inhalations twice daily with Aerochamber. Rinse mouth after each use to help prevent oral thrush. Spiriva 1 capsule daily. 3. Continue Albuterol HFA inhaler, 2 inhalations 10?15 minutes prior to activities associated with shortness of breath, and as needed for rescue relief of shortness of breath or wheezing, up to 4 times daily. 4. Up to date on annual influenza and pneumonia vaccines. 5. Re-assess in 3 months, sooner if needed. If cough increases, sputum changes color or amount, increased shortness of breath, please call our office. I addressed the questions of the patient, and he expressed understanding and acceptance of my answers. Leni Mcbride PA-C [facility] Respiratory [place] [address] [place] [address] WOUND CTR HISTORY Observed: 02/10/2018 Status: F Source: [facility]ENDA AND PHYSICAL 12:46 PM FORMERLY [facility] HOSPITAL REPOSITORY [facility] [address] [place] [address] Wound Ctr History AND Physical 02/10/18 1243 MR#: [id number] Acct: [id number] Name: CARISSA YIP Rep #: [id number] : 1940 77 From: Oz Cooper MD PCP: Lambert Larios MD Status: REG RCR Y Location: WC (1) Obesity Status: Chronic Current Visit: No Code(s): E66.9 - Obesity, unspecified (2) Open wound Status: Chronic Current Visit: Yes Code(s): T14.8 - Other injury of unspecified body region (3) Open wound of left lower leg Status: Chronic Current Visit: Yes Qualifiers: Encounter type: subsequent encounter Code(s): S81.802A - Unspecified open wound, left lower leg, initial encounter (4) Traumatic open wound of left lower leg Status: Chronic Current Visit: Yes Qualifiers: Encounter type: subsequent encounter Code(s): S81.802A - Unspecified open wound, left lower leg, initial encounter (5) Leg swelling Status: Chronic Current Visit: Yes Code(s): M79.89 - Other specified soft tissue disorders (6) Traumatic wound Status: Chronic Current Visit: Yes (7) Open wound of left lower extremity Status: Chronic Current Visit: Yes Qualifiers: Encounter type: subsequent encounter Code(s): S81.802A - Unspecified open wound, left lower leg, initial encounter (8) History of pulmonary embolism Status: Chronic Current Visit: No Code(s): Z86.711 - Personal history of pulmonary embolism (9) Iron deficiency anemia Status: Chronic Current Visit: No Code(s): D50.9 - Iron deficiency anemia, unspecified (10) Pulmonary nodule Status: Chronic Current Visit: No Code(s): R91.1 - Solitary pulmonary nodule (11) HLD (hyperlipidemia) Status: Chronic Current Visit: No Code(s): E78.5 - Hyperlipidemia, unspecified (12) Diverticulosis Status: Chronic Current Visit: No Code(s): K57.90 - Diverticulosis of intestine, part unspecified, without perforation or abscess without bleeding (13) Asthma Status: Chronic Current Visit: No Code(s): J45.909 - Unspecified asthma, uncomplicated (14) Hypertension Status: Chronic Current Visit: No Qualifiers: Code(s): I10 - Essential (primary) hypertension (15) Osteoarthritis Status: Chronic Current Visit: No (16) History of prostate cancer Status: Chronic Current Visit: No Code(s): Z85.46 - Personal history of malignant neoplasm of prostate (17) Allergic rhinitis Status: Chronic Current Visit: No Code(s): J30.9 - Allergic rhinitis, unspecified (18) Rheumatoid arthritis Status: Chronic Current Visit: No Code(s): M06.9 - Rheumatoid arthritis, unspecified (19) Pleural plaque Status: Chronic Current Visit: No Code(s): J92.9 - Pleural plaque without asbestos (20) Macular degeneration Status: Chronic Current Visit: No Code(s): H35.30 - Unspecified macular degeneration (21) GERD (gastroesophageal reflux disease) Status: Chronic Current Visit: No Code(s): K21.9 - Gastro- esophageal reflux disease without esophagitis History of Present Illness Chief Complaint: Recent traumatic injury of the left lower extremity with residual open wound History of Wound: This is a 77-year-old male who was in his normal state of health until September 06, 2017, at which time he sustained an injury to the left lateral calf, the result of a shovel which impaled into his left leg. The patient was rushed to the emergency department on that date, where he was treated by means of wound closure using sutures. Four days later, he had developed a cellulitis, and was admitted to the hospital for treatment. Patient was treated with antibiotics, and subsequently underwent wide surgical debridement of necrotic tissue by Dr. Homero Chin on September 12, 2017. Patient was discharged on September 16, 2017. He was discharged on Cipro 500 mg p.o. twice daily and Augmentin 875 mg p.o. twice daily. At the time of discharge, arrangements were made for the wound VAC to be the means of treatment, which has been changed every several days by home health nursing personnel. The patient had been on Xarelto and treatment for a pulmonary embolism which was diagnosed in January 2017. As result of his injury, the Xarelto has been discontinued. A noninvasive lower extremity arterial study performed in August 2016 revealed no evidence of arterial occlusive disease in the lower extremities. Therefore, there is no reason to believe there is since of any significant arterial occlusive disease. The patient has done well, showing progress with the use of the wound VAC. The patient developed cellulitis in his left lower extremity associated with fever. He was hospitalized at [facility] for approximately 4 days. He was treated initially with intravenous antibiotics consisting of Zosyn, and was subsequently discharged with a prescription for Augmentin, which has been completed. The wound VAC was discontinued, and alternative means have been implemented since that time. Collagen hydrogel is currently being applied topically every day. Past Medical History Past Medical History: Chronic Problems Obesity (Chronic) Open wound (Chronic) Open wound of left lower leg (Chronic) Traumatic open wound of left lower leg (Chronic) Leg swelling (Chronic) Traumatic wound (Chronic) Open wound of left lower extremity (Chronic) History of pulmonary embolism (Chronic) Iron deficiency anemia (Chronic) Pulmonary nodule (Chronic) HLD (hyperlipidemia) (Chronic) Diverticulosis (Chronic) Asthma (Chronic) Hypertension (Chronic) Osteoarthritis (Chronic) History of prostate cancer (Chronic) Allergic rhinitis (Chronic) Rheumatoid arthritis (Chronic) Pleural plaque (Chronic) Macular degeneration (Chronic) GERD (gastroesophageal reflux disease) (Chronic) Surgical History: - - Umbilical hernia repair, appendectomy, bilateral carpal tunnel surgery, Prostatectomy, Cataract surgery, L lens implant, L knee surgery followed by LTKR, L shoulder surgery, left total hip replacement. Allergies/Adverse Reactions: Allergies indomethacin [From Indocin] Allergy (Verified 12/06/17 11:12) Itching indomethacin sodium [From Indocin] Allergy (Verified 12/06/17 11:12) Itching oxycodone HCl [From Percocet] Allergy (Verified 12/06/17 11:12) Itching Home Medications: Ambulatory Orders Medication Instructions Recorded Albuterol Sulfate [Proventil Hfa] 2 puff IH BID 07/13/13 Azelastine HCl [Astelin] 2 spray NASAL BID 07/13/13 - Family History Sibling Diabetes, Renal Disease, - - Patient's father at the age of 76 with history of colon cancer myocardial infarction. Patient's mother at age of 86 with a history of breast cancer. Maternal Cancer Paternal Cancer Smoking Status: Never smoker Tobacco Use: Non-smoker Review of Systems Constitutional: Denies: Chills, Fever, Weight Change Eyes: Denies: Pain, Vision Change HEENT: Denies: Difficulty Hearing, Difficulty Swallowing, Sinus Congestion Cardiovascular: Denies: Chest Pain, Palpitations Respiratory: Denies: Cough, Shortness of Breath Gastrointestinal: Denies: Diarrhea, Nausea, Vomiting Genitourinary: Denies: Dysuria, Hematuria Endocrine: Denies: Heat/ Cold Intolerance, Polydipsia, Polyuria Hematologic/ Lymphatic: Denies: Easy Bruising, Easy Bleeding - Physical Exam Vital Signs Temp Pulse Resp BP 98.6 F 87 18 137/70 H 02/10/18 11:37 02/10/18 11:37 02/10/18 11:37 02/10/18 11:37 General: Alert, Oriented x3, Cooperative, No apparent distress, Well developed, Well nourished HEENT: Atraumatic, PERRLA, EOMI, Normocephalic Oral: Moist Mucosa Neck: No JVD Lungs: Normal air movement Abdomen: Non-Distended Extremities: No clubbing, No cyanosis, No edema, No Calf Tenderness, - - The traumatic wound on the left lateral calf continues to diminish in size. Dimensions are documented elsewhere. There is no sign of infection or cellulitis. There is a minimum amount of bioburden. Active granulation tissue is present. There are several superficial excoriations noted adjacent to the wound, located on the left anterior tibial surface. Skin: No rashes Wound Measurements and Assessment WC - Nurse 1 - General Ulcer Measurement Start: 01/20/18 12:49 Freq: Status: Active Protocol: Activity Type Activity Date Activity User E-Sign Co-Sign Detail Recorded Client Recorded Date Recorded By Document 02/10/18 11:37 DL [id number] 02/10/18 11:47 DL Wound Center Nurse 1 [Ulcer Assessment] #8 LEFT LATERAL HICKMAN -Current Size (cm) - Length 1.2 Neurological: Cranial nerves II-XII grossly intact, Neuro grossly intact Psych/Mental Status: Normal Affect, Appropriate, Alert and oriented to time, place, person, mood and affect Debridement Note Post-Debridement Measurements/Treatment WC - Nurse 2 - General Ulcer CM Notes Start: 01/20/18 12:49 Freq: Status: Active Protocol: Activity Type Activity Date Activity User E-Sign Co-Sign Detail Recorded Client Recorded Date Recorded By Wound Center Nurse 2 #8 LEFT LATERAL HICKMAN Laterality: Left - LATERAL calf Type of Debridement: Excisional debridement Anesthesia Used: 4% Lidocaine Solution Depth: Down to and including healthy tissue, in the subcutaneous layer Percentage of wound debrided: 100 Instrument Used: 7mm curette Severity: Fat Layer Exposed Amount of bleeding with debridement: Mild Bleeding Controlled with: Compression and gauze Patient tolerated procedure well Assessment/Plan Active Problems Open wound (Chronic) Open wound of left lower leg (Chronic) Traumatic open wound of left lower leg (Chronic) Leg swelling (Chronic) Traumatic wound (Chronic) Open wound of left lower extremity (Chronic) Assessment: This is a 77-year-old male with a traumatic injury to the left lateral calf. The patient appears to be responding well to current measures, which has included the use of collagen hydrogel topically for the last several weeks. He is doing extremely well. Healing within the next several weeks appears likely. Plan: We are to continue collagen hydrogel applied topically on a daily basis. This will be covered by Adaptic and gauze. Patient has shown significant progress. Patient will return in 1 week for reassessment. Intake of a well-balanced and nutritious diet has been advised. Patient has been advised to elevate his lower extremities, to minimize swelling and edema. The patient is not a smoker. Influenza vaccine was not administered today. Patient stands 5 feet 4 inches tall. He weighs 210 pounds. His BMI is 36.0, which places him in a class II category. Weight loss has been recommended, with collaboration with his primary care physician. 02/10/18 1246 <Electronically signed by Oz Cooper MD> Date Oz Cooper MD CC: Signed PROGRESS Observed: 02/09/2018 Status: COMPLETED Source: [place] 9:29 AM [facility] REPOSITORY [facility] ID: [id number] Author: Elena (Petros) Older Service: (none) Author Type: Nurse Practitioner Type: Progress Notes Filed: 02/09/2018 1:10 PM Note Text: Medicare Yearly Visit Medical B eligibilty date 2003 Date of last exam 01/30/17 PAST MEDICAL HISTORY Diagnosis Date - Anxiety state, unspecified - Benign neoplasm of colon - Chronic rhinitis - Colon polyp 10/2014 - Depressive disorder, not elsewhere classified - Diabetes mellitus type 2, controlled, without complications (HCC) 08/25/2017 - Diverticulosis of colon (without mention of hemorrhage) - Esophageal reflux - Family history of malignant neoplasm of gastrointestinal tract - GENERAL OSTEOARTHROSIS 04/08/2008 - Gout 04/01/2011 - HYPERGLYCEMIA 07/19/2005 - HYPERLIPIDEMIA NEC/NOS 07/19/2005 - HYPERTENSION NOS 09/03/2007 - Hypertrophy of prostate without urinary obstruction and other lower urinary tract symptoms (LUTS) - Impaired fasting blood sugar 07/19/2005 - Internal hemorrhoids without mention of complication - IRON DEFIC ANEMIA NEC 07/19/2005 - Macular degeneration (senile) of retina, unspecified - MALIGN NEOPL PROSTATE 05/23/2005 - Other pulmonary embolism without acute cor pulmonale (HCC) 01/27/2017 - Personal history of colonic polyps - 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 - Unspecified asthma(493.90) PAST SURGICAL HISTORY Procedure Laterality Date - APPENDECTOMY 11-02-14 - COLONOS W/REM POLYP SNARE 07/25/05 - COLONOS W/REM POLYP SNARE 01/17/11 - COLONOSCOP W/ OR W/O [facility]SH SPEC 07/28/14 Colonoscopy - COLONOSCOP W/ OR W/O [facility] SPEC 12-20-15 - COLONOSCOPY - DIAGNOSTIC 03/02/2003 - DEBRIDEMENT WOUND 21+ SQ CM Left 09/12/2017 Left leg abcess s/pt traumatic wound. - EGD W/O OR W/BRUSH/WASH 04/17/15 EGD - KNEE SCOPE,DIAGNOSTIC 1998 LEFT - LAP COLECTMY W/ILEUM/ILEOCOL 11-02-14 WITH INCISIONAL HERNIA REPAIR - LAPAROSCOPIC HEMICOLECTOMY 11-02-14 - REMV PROSTATE,PERINEAL,RADICAL 11/28/2003 - REPAIR ROTATOR CUFF,ACUTE 03/04/2002 Rotator cuff repair Left - REPAIR UMBILICAL BAKARI,5+Y/O,REDUC 03/01/1996 Hernia repair, umbilical >5yr - [facility] N/CARPAL TUNNEL SURG Bilateral 1993 Carpal tunnel decomp; , - TOTAL HIP REPLACEMENT 07/26/2013 Hip replacement, total, LEFT, Dr. 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 Social History Main Topics Smoking status: Never Smoker Smokeless tobacco: Never Used Comment: Father smoked in childhood home. No household smoke exposure since. 05/2014. Alcohol use: No Drug use: No Social History Narrative 2017: Lives with spouse w/ depression. No longer driving since 2013 due to macular degeneration. drives. Ambulatory with cane. Dyspnea on moderate exertion. Carissa works out regularly 5 to 7 times per week with walking about 1/2 mile. He watches his diet for sodium, low fat and low cholesterol most of the time. List of current specialists seen: International Exchange Coordinator- [facility] [place]- [facility] Grocery Bagger- Dr. Verma End of Live Planning discussed including patients advanced directive wishes: Yes I am willing to follow Carissa's advanced directives. Depression screen He in the past two weeks denies having felt down, depressed, hopeless or with little interest or pleasure in doing things. Functional Ability/Safety Screen 1. Was the patient's timed Up and Go test unsteady or longer than 30 seconds? No 2. Does the patient need help with the phone, transportation, shopping,preparing meals, housework, laundry, medications or managing money? No 3. Does your home have rugs in the hallway, lack of grab bars in the bathroom, lack of handrails on the stairs or have poor lighting? No Hearing Evaluation: wears hearing aids PHYSICAL EXAM BP 148/88 Pulse 94 Temp 36.9 ?C (98.4 ?F) (Temporal Artery) Resp 14 Wt 92.5 kg (204 lb) SpO2 96% BMI 33.18 kg/m? Alert and oriented X 3: YES Body mass index is 33.18 kg/m?. ASSESSMENT/PLAN: 77 year old male The following prevention plan was discussed during the office visit and provided to the patient: - Discussed health maintenance, including regular aerobic exercise, low fat diet, and periodic exams. - Fall avoidance - Vaccines recommended Influenza - Glaucoma screening Elena Monterroso APRN.CNP CNOV Observed: 02/09/2018 Status: COMPLETED Source: [place] 9:20 AM [facility] REPOSITORY Office Visit (INTMWS) CARISSA YIP ([id number]) 1940 M Date Time Provider Department 02/09/18 9:20 AM ELENA MONTERROSO (PETROS) INTMWS During your visit today, we recorded the following information about you: Temperature Pulse Respiration Blood pressure 98.4 degrees 94/minute 14/minute 136/70 Weight 92.5 kg Kait Velazquez [facility] 02/09/2018 1:10 PM Signed 77 year old male here for INACTIVATED INFLUENZA VACCINE. 5124-1399 Season Patient is identified by name and date of : Yes [] CONTRAINDICATIONS color enhanced section Age less than 6 months? No Allergy to eggs, chicken, chicken feathers, or chicken dander? No Allergy to thimerosal (a preservative) or formaldehyde, gelatin? No History of severe reaction to any vaccine component or a previous dose of influenza vaccination? No History of Guillain-[place] Syndrome within 6 weeks after a previous influenza vaccine? No Patient is not moderately or severely ill? No Current temperature greater or equal to 100.4F? No History of Bone Marrow Transplant prior 6 months or solid organ transplant in the past 3 months ? No History of fainting after a prior injection or medical procedure? No- ? If patient has fainted in the past, the CDC recommends sitting or lying down for 15 minutes after the vaccination. [] VERIFICATION color enhanced section Was the answer Yes for any of the above contraindications? No contraindications present. Acceptable to proceed with vaccine. Patient/guardian agrees the above answers are true to the best of their knowledge? Yes Flu vaccine information sheet given? Yes See immunization activity in [facility] for details of immunizations adminstered today. Patient age: [age] year old For The 9938-1843 Flu Season 6-35 months old: Fluzone 0.25 ml - IM (Preservative Free) 3 years of age: Fluzone 0.5 ml - IM (Preservative Free) 3 years and older: Fluzone 0.5 ml- IM-(with Preservatives) 65+ years old: 2-49 years old Fluzone High-Dose 0.5 ml - IM (Preservative Free) FLUMIST- intranasal REMEMBER: If patient is less than 9 years of age and this is the first vaccine of Influenza to be received in any flu season, they should receive a second dose in one months time. Elena Monterroso, PROMOTIONS COORDINATOR.SIGNAL OPERATOR 02/09/2018 1:10 PM Signed Medicare Yearly Visit Medical B eligibilty date 2003 Date of last exam 01/30/17 PAST MEDICAL HISTORY Diagnosis Date - Anxiety state, unspecified - Benign neoplasm of colon - Chronic rhinitis - Colon polyp 10/2014 - Depressive disorder, not elsewhere classified - Diabetes mellitus type 2, controlled, without complications (HCC) 08/25/2017 - Diverticulosis of colon (without mention of hemorrhage) - Esophageal reflux - Family history of malignant neoplasm of gastrointestinal tract - GENERAL OSTEOARTHROSIS 04/08/2008 - Gout 04/01/2011 - HYPERGLYCEMIA 07/19/2005 - HYPERLIPIDEMIA NEC/NOS 07/19/2005 - HYPERTENSION NOS 09/03/2007 - Hypertrophy of prostate without urinary obstruction and other lower urinary tract symptoms (LUTS) - Impaired fasting blood sugar 07/19/2005 - Internal hemorrhoids without mention of complication - IRON DEFIC ANEMIA NEC 07/19/2005 - Macular degeneration (senile) of retina, unspecified - MALIGN NEOPL PROSTATE 05/23/2005 - Other pulmonary embolism without acute cor pulmonale (HCC) 01/27/2017 - Personal history of colonic polyps - 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 - Unspecified asthma(493.90) PAST SURGICAL HISTORY Procedure Laterality Date - APPENDECTOMY 11-02-14 - COLONOS W/REM POLYP SNARE 07/25/05 - COLONOS W/REM POLYP SNARE 01/17/11 - COLONOSCOP W/ OR W/O [facility] SPEC 07/28/14 Colonoscopy - COLONOSCOP W/ OR W/O [facility] SPEC 12-20-15 - COLONOSCOPY - DIAGNOSTIC 03/02/2003 - DEBRIDEMENT WOUND 21+ SQ CM Left 09/12/2017 Left leg abcess s/pt traumatic wound. - EGD W/O OR W/BRUSH/WASH 04/17/15 EGD - KNEE SCOPE,DIAGNOSTIC 1998 LEFT - LAP COLECTMY W/ILEUM/ILEOCOL 11-02-14 WITH INCISIONAL HERNIA REPAIR - LAPAROSCOPIC HEMICOLECTOMY 11-02-14 - REMV PROSTATE,PERINEAL,RADICAL 11/28/2003 - REPAIR ROTATOR CUFF,ACUTE 03/04/2002 Rotator cuff repair Left - REPAIR UMBILICAL BAKARI,5+Y/O,REDUC 03/01/1996 Hernia repair, umbilical >5yr - [facility] N/CARPAL TUNNEL SURG Bilateral 1993 Carpal tunnel decomp; , - TOTAL HIP REPLACEMENT 07/26/2013 Hip replacement, total, LEFT, Dr. 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 Social History Main Topics Smoking status: Never Smoker Smokeless tobacco: Never Used Comment: Father smoked in childhood home. No household smoke exposure since. 05/2014. Alcohol use: No Drug use: No Social History Narrative 2017: Lives with spouse w/ depression. No longer driving since 2013 due to macular degeneration. drives. Ambulatory with cane. Dyspnea on moderate exertion. Carissa works out regularly 5 to 7 times per week with walking about 1/2 mile. He watches his diet for sodium, low fat and low cholesterol most of the time. List of current specialists seen: International Exchange Coordinator- [facility] [place] [facility] Grocery Bagger- Dr. Verma End of Live Planning discussed including patients advanced directive wishes: Yes I am willing to follow Carissa's advanced directives. Depression screen He in the past two weeks denies having felt down, depressed, hopeless or with little interest or pleasure in doing things. Functional Ability/Safety Screen 1. Was the patient's timed Up and Go test unsteady or longer than 30 seconds? No 2. Does the patient need help with the phone, transportation, shopping,preparing meals, housework, laundry, medications or managing money? No 3. Does your home have rugs in the hallway, lack of grab bars in the bathroom, lack of handrails on the stairs or have poor lighting? No Hearing Evaluation: wears hearing aids PHYSICAL EXAM BP 148/88 Pulse 94 Temp 36.9 ?C (98.4 ?F) (Temporal Artery) Resp 14 Wt 92.5 kg (204 lb) SpO2 96% BMI 33.18 kg/m? Alert and oriented X 3: YES Body mass index is 33.18 kg/m?. ASSESSMENT/PLAN: 77 year old male The following prevention plan was discussed during the office visit and provided to the patient: - Discussed health maintenance, including regular aerobic exercise, low fat diet, and periodic exams. - Fall avoidance - Vaccines recommended Influenza - Glaucoma screening Elena Monterroso APRN.SIGNAL OPERATOR Referring Provider: SELF [200] Allergies As of Date: 02/09/2018 Noted Allergy Reaction INDOCIN (INDOMETHACIN SODIUM) 04/01/2011 14 - Other: See Comments Comments: Wheezing, can take naprosyn PERCOCET (OXYCODONE-ACETAMINOPHEN)01/08/2005 9 - Itching SEASONAL ALLERGIES 11/12/2012 14 - Other: See Comments Comments: Cat, Goats, Dust mites, molds, trees, grasses, weed, ragweed Date Reviewed: 02/09/2018 Reviewed by: Kait Velazquez Senior Structural Engineer - Fully Assessed Reason for Visit: Medicare Wellness Exam [4060] Imm/Inj [58] Reason For Visit History Recorded Primary Visit Diagnosis:Need for vaccination [Z23] Other Visit Diagnosis:Candidal balanitis [B37.42] Order(s):INFLUENZA SEASONAL HIGH DOSE AGE 65+ [59746NLC] Order #: [id number] nystatin-triamcinolone (MYCOLOG II) creamApply 1 application to affected area twice daily as needed. Genital rash.Disp: 1 TubeRfl: 2 Prescriptions as of 02/09/2018 Sig: NYSTATIN-TRIAMCINOLONE 100,00* Apply 1 application to affect* GUAIFENESIN ER 600 MG TABLET,* Take 1 tablet by mouth twice * ASPIRIN 81 MG TABLET,DELAYED * Take 81 mg by mouth once christiano* AZELASTINE 137 MCG (0.1 %) NA* instill 2 sprays into each no* FLUTICASONE 50 MCG/ACTUATION * instill 2 sprays into each no* PREDNISONE 10 MG TABLETS IN A* 4 tablets once a day for 5 da* ALBUTEROL SULFATE 2.5 MG/3 ML* Use 3 mL via nebulizer every * SPIRIVA WITH HANDIHALER 18 MC* inhale the contents of one ca* SERTRALINE 100 MG TABLET Take 1.5 tablets by mouth onc* MONTELUKAST 10 MG TABLET Take 1 tablet by mouth daily * NITROGLYCERIN 0.4 MG SUBLINGU* Dissolve 1 tablet under the t* ADVAIR HFA 230 MCG-21 MCG/ACT* take 2 inhalations by mouth t* OMEPRAZOLE 20 MG CAPSULE,ALEX* Take 1 capsule by mouth daily* LISINOPRIL 20 MG TABLET Take 1 tablet by mouth once d* ATORVASTATIN 10 MG TABLET take 1 tablet by mouth at bed* LEFLUNOMIDE 10 MG TABLET Take 10 mg by mouth once christiano* VENTOLIN HFA 90 MCG/ACTUATION* inhale 2 puffs every 4 hours * IPRATROPIUM-ALBUTEROL 0.5 MG-* Inhale 3 mL as instructed fou* EPINEPHRINE 0.3 MG/0.3 ML INJ* Inject 0.3 mL intramuscularly* ALBUTEROL SULFATE HFA 90 MCG/* Inhale 2 Puffs as instructed. POLYETHYLENE GLYCOL 3350 17 G* Take 17 g by mouth once daily* IPRATROPIUM BROMIDE 0.02 % SO* 500 mcg (one ampule) nebulize* PRESERVISION AREDS 7,160 UNIT* Take one(1) tablet two(2) link* Problem List As Of Date 02/09/2018 Noted Resolved Asthma [J45.909] 08/25/2017 CHRONIC RHINITIS [J31.0] BPH without obstruction/lower urinary tract sym* ANXIETY STATE NOS [F41.1] 08/05/2014 Depression with anxiety [F41.8] Diverticulosis of colon (without mention of hem* 10/06/2012 ESOPHAGEAL REFLUX [K21.9] Internal hemorrhoids without mention of complic* 08/30/2010 Malignant neoplasm of prostate (HCC) [C61] INVALID FOR*08/05/2014 MACULAR DEGENERATION NOS [H35.30] Other specified iron deficiency anemias [D50.8] INVALID FOR*08/30/2010 Diabetes mellitus type 2, controlled, without c*INVALID FOR* Hyperlipidemia [E78.5] INVALID FOR* Personal history of colonic polyps [Z86.010] INVALID FOR*09/30/2011 More... FAMILY HX COLON CANCER [Z80.0] INVALID FOR*08/25/2017 PULMONARY NODULES [J98.4] INVALID FOR*10/06/2012 More... 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] INVALID FOR* Essential hypertension [I10] INVALID FOR* Generalized osteoarthritis of multiple sites [M*INVALID FOR* Benign neoplasm of rectum and anal canal [D12.8*INVALID FOR*10/06/2012 Benign neoplasm of colon [D12.6] INVALID FOR* Gout [M10.9] INVALID FOR* Venous insufficiency of leg [I87.2] INVALID FOR* Iron deficiency anemia due to chronic blood los*INVALID FOR* Inflammatory polyarthropathy of multiple sites *INVALID FOR* Unsteady gait [R26.81] INVALID FOR* Uncomplicated severe persistent asthma [J45.50] INVALID FOR* Other pulmonary embolism without acute cor pulm*INVALID FOR*12/29/2017 Pulmonary hypertension (HCC) [I27.20] INVALID FOR* Memory disturbance [R41.3] INVALID FOR* Obesity, Class I, BMI 30-34.9 E66.9 [E66.9] INVALID FOR* Open wound of left lower extremity [S81.802A] INVALID FOR* Prothrombin Q13731H mutation (HCC) [D68.52] INVALID FOR*12/29/2017 Allergic rhinitis due to cats [J30.81] INVALID FOR* Allergic rhinitis due to dust mite [J30.89] INVALID FOR* Allergic rhinitis due to fungal spores [J30.89] INVALID FOR* Seasonal allergic rhinitis due to pollen [J30.1]INVALID FOR* Prescriptions ordered this encounter Disp Refills Start End NYSTATIN-TRIAMCINOLONE 100,000 UNIT/* 1 Tu* 2 02/09/2018 Route: TOPICAL Sig: Apply 1 application to affected area twice daily as needed. Genital rash. Medications Discontinued During This Encounter nystatin-triamcinolone (MYCOLOG II) * 1 Tu* 2 12/10/2016 02/09/2018 Route: TOPICAL Sig: Apply 1 application to affected area twice daily as needed. Genital rash. Disc: Reason for discontinue is not on file. Encounter Status:Closed by ELENA MONTERROSO CNP on 02/09/18 PROGRESS Observed: 02/09/2018 Status: COMPLETED Source: [place] 9:15 AM [facility] ID: [id number] Author: Kati Velazquez [facility] Service: (none) Author Type: (none) Type: Progress Notes Filed: 02/09/2018 1:10 PM Note Text: 77 year old male here for INACTIVATED INFLUENZA VACCINE. [id number] Season Patient is identified by name and date of : Yes [] CONTRAINDICATIONS color enhanced section Age less than 6 months? No Allergy to eggs, chicken, chicken feathers, or chicken dander? No Allergy to thimerosal (a preservative) or formaldehyde, gelatin? No History of severe reaction to any vaccine component or a previous dose of influenza vaccination? No History of Guillain-[place] Syndrome within 6 weeks after a previous influenza vaccine? No Patient is not moderately or severely ill? No Current temperature greater or equal to 100.4F? No History of Bone Marrow Transplant prior 6 months or solid organ transplant in the past 3 months ? No History of fainting after a prior injection or medical procedure? No- ? If patient has fainted in the past, the CDC recommends sitting or lying down for 15 minutes after the vaccination. [] VERIFICATION color enhanced section Was the answer Yes for any of the above contraindications? No contraindications present. Acceptable to proceed with vaccine. Patient/guardian agrees the above answers are true to the best of their knowledge? Yes Flu vaccine information sheet given? Yes See immunization activity in [facility] for details of immunizations adminstered today. Patient age: [age] year old For The 5305-1658 Flu Season 6-35 months old: Fluzone 0.25 ml - IM (Preservative Free) 3 years of age: Fluzone 0.5 ml - IM (Preservative Free) 3 years and older: Fluzone 0.5 ml- IM-(with Preservatives) 65+ years old: 2-49 years old Fluzone High-Dose 0.5 ml - IM (Preservative Free) FLUMIST- intranasal REMEMBER: If patient is less than 9 years of age and this is the first vaccine of Influenza to be received in any flu season, they should receive a second dose in one months time. WOUND CTR HISTORY Observed: 02/03/2018 Status: F Source: [facility] 11:38 AM [facility]POS[facility] [address] [place] [address] Wound Ctr History AND Physical 02/03/18 1133 MR#: [id number] Acct: [id number] Name: CARISSA YIP Rep #: [id number] : 1940 77 From: Oz Cooper MD PCP: Lambert Larios MD Status: REG RCR Y Location: WC (1) Obesity Status: Chronic Current Visit: No Code(s): E66.9 - Obesity, unspecified (2) Open wound Status: Chronic Current Visit: Yes Code(s): T14.8 - Other injury of unspecified body region (3) Open wound of left lower leg Status: Chronic Current Visit: Yes Qualifiers: Encounter type: subsequent encounter Code(s): S81.802A - Unspecified open wound, left lower leg, initial encounter (4) Traumatic open wound of left lower leg Status: Chronic Current Visit: Yes Qualifiers: Encounter type: subsequent encounter Code(s): S81.802A - Unspecified open wound, left lower leg, initial encounter (5) Leg swelling Status: Chronic Current Visit: Yes Code(s): M79.89 - Other specified soft tissue disorders (6) Traumatic wound Status: Chronic Current Visit: Yes (7) Open wound of left lower extremity Status: Chronic Current Visit: Yes Qualifiers: Encounter type: subsequent encounter Code(s): S81.802A - Unspecified open wound, left lower leg, initial encounter (8) History of pulmonary embolism Status: Chronic Current Visit: No Code(s): Z86.711 - Personal history of pulmonary embolism (9) Iron deficiency anemia Status: Chronic Current Visit: No Code(s): D50.9 - Iron deficiency anemia, unspecified (10) Pulmonary nodule Status: Chronic Current Visit: No Code(s): R91.1 - Solitary pulmonary nodule (11) HLD (hyperlipidemia) Status: Chronic Current Visit: No Code(s): E78.5 - Hyperlipidemia, unspecified (12) Diverticulosis Status: Chronic Current Visit: No Code(s): K57.90 - Diverticulosis of intestine, part unspecified, without perforation or abscess without bleeding (13) Asthma Status: Chronic Current Visit: No Code(s): J45.909 - Unspecified asthma, uncomplicated (14) Hypertension Status: Chronic Current Visit: No Qualifiers: Code(s): I10 - Essential (primary) hypertension (15) Osteoarthritis Status: Chronic Current Visit: No (16) History of prostate cancer Status: Chronic Current Visit: No Code(s): Z85.46 - Personal history of malignant neoplasm of prostate (17) Allergic rhinitis Status: Chronic Current Visit: No Code(s): J30.9 - Allergic rhinitis, unspecified (18) Rheumatoid arthritis Status: Chronic Current Visit: No Code(s): M06.9 - Rheumatoid arthritis, unspecified (19) Pleural plaque Status: Chronic Current Visit: No Code(s): J92.9 - Pleural plaque without asbestos (20) Macular degeneration Status: Chronic Current Visit: No Code(s): H35.30 - Unspecified macular degeneration (21) GERD (gastroesophageal reflux disease) Status: Chronic Current Visit: No Code(s): K21.9 - Gastro- esophageal reflux disease without esophagitis History of Present Illness Date of Service: 02/03/18 Chief Complaint: Recent traumatic injury of the left lower extremity with residual open wound History of Wound: This is a 77-year-old male who was in his normal state of health until September 06, 2017, at which time he sustained an injury to the left lateral calf, the result of a shovel which impaled into his left leg. The patient was rushed to the emergency department on that date, where he was treated by means of wound closure using sutures. Four days later, he had developed a cellulitis, and was admitted to the hospital for treatment. Patient was treated with antibiotics, and subsequently underwent wide surgical debridement of necrotic tissue by Dr. Homero Chin on September 12, 2017. Patient was discharged on September 16, 2017. He was discharged on Cipro 500 mg p.o. twice daily and Augmentin 875 mg p.o. twice daily. At the time of discharge, arrangements were made for the wound VAC to be the means of treatment, which has been changed every several days by home health nursing personnel. The patient had been on Xarelto and treatment for a pulmonary embolism which was diagnosed in January 2017. As result of his injury, the Xarelto has been discontinued. A noninvasive lower extremity arterial study performed in August 2016 revealed no evidence of arterial occlusive disease in the lower extremities. Therefore, there is no reason to believe there is since of any significant arterial occlusive disease. The patient has done well, showing progress with the use of the wound VAC. The patient developed cellulitis in his left lower extremity associated with fever. He was hospitalized at [facility] for approximately 4 days. He was treated initially with intravenous antibiotics consisting of Zosyn, and was subsequently discharged with a prescription for Augmentin, which has been completed. The wound VAC was discontinued, and alternative means have been implemented since that time. Collagen hydrogel is currently being applied topically every day. Past Medical History Past Medical History: Chronic Problems Obesity (Chronic) Open wound (Chronic) Open wound of left lower leg (Chronic) Traumatic open wound of left lower leg (Chronic) Leg swelling (Chronic) Traumatic wound (Chronic) Open wound of left lower extremity (Chronic) History of pulmonary embolism (Chronic) Iron deficiency anemia (Chronic) Pulmonary nodule (Chronic) HLD (hyperlipidemia) (Chronic) Diverticulosis (Chronic) Asthma (Chronic) Hypertension (Chronic) Osteoarthritis (Chronic) History of prostate cancer (Chronic) Allergic rhinitis (Chronic) Rheumatoid arthritis (Chronic) Pleural plaque (Chronic) Macular degeneration (Chronic) GERD (gastroesophageal reflux disease) (Chronic) Surgical History: - - Umbilical hernia repair, appendectomy, bilateral carpal tunnel surgery, Prostatectomy, Cataract surgery, L lens implant, L knee surgery followed by LTKR, L shoulder surgery, left total hip replacement. Allergies/Adverse Reactions: Allergies indomethacin [From Indocin] Allergy (Verified 12/06/17 11:12) Itching indomethacin sodium [From Indocin] Allergy (Verified 12/06/17 11:12) Itching oxycodone HCl [From Percocet] Allergy (Verified 12/06/17 11:12) Itching Home Medications: Ambulatory Orders Medication Instructions Recorded Albuterol Sulfate [Proventil Hfa] 2 puff IH BID 07/13/13 Azelastine HCl [Astelin] 2 spray NASAL BID 07/13/13 - Family History Sibling Diabetes, Renal Disease, - - Patient's father at the age of 76 with history of colon cancer myocardial infarction. Patient's mother at age of 86 with a history of breast cancer. Maternal Cancer Paternal Cancer Smoking Status: Never smoker Tobacco Use: Non-smoker Review of Systems Constitutional: Denies: Chills, Fever, Weight Change Eyes: Denies: Pain, Vision Change HEENT: Denies: Difficulty Hearing, Difficulty Swallowing, Sinus Congestion Cardiovascular: Denies: Chest Pain, Palpitations Respiratory: Denies: Cough, Shortness of Breath Gastrointestinal: Denies: Diarrhea, Nausea, Vomiting Genitourinary: Denies: Dysuria, Hematuria Endocrine: Denies: Heat/ Cold Intolerance, Polydipsia, Polyuria Hematologic/ Lymphatic: Denies: Easy Bruising, Easy Bleeding - Physical Exam Vital Signs Temp Pulse Resp BP 97.7 F L 91 18 135/72 H 02/03/18 10:10 02/03/18 10:10 02/03/18 10:10 02/03/18 10:10 General: Alert, Oriented x3, Cooperative, No apparent distress, Well developed, Well nourished HEENT: Atraumatic, PERRLA, EOMI, Normocephalic Oral: Moist Mucosa Neck: No JVD Lungs: Normal air movement Abdomen: Non-Distended Extremities: No clubbing, No cyanosis, No edema, No Calf Tenderness, - - The wound on the lateral aspect of the left calf is relatively unchanged. However, there are now several superficial excoriations inferior to the wound, which are the result of the patient scratching with his fingernails. Dimensions are documented elsewhere. The base of the ulceration is pink and healthy in appearance, with active granulation tissue. Evidence of epithelialization is also noted. Skin: No rashes Wound Measurements and Assessment WC - Nurse 1 - General Ulcer Measurement Start: 01/20/18 12:49 Freq: Status: Active Protocol: Activity Type Activity Date Activity User E-Sign Co-Sign Detail Recorded Client Recorded Date Recorded By Document 02/03/18 10:10 [id number] 02/03/18 10:12 Wound Center Nurse 1 [Ulcer Assessment] #7 LATERAL LLE- POST OP 09/12/17 WC - Nurse 2 - General Ulcer CM Notes Start: 01/20/18 12:49 Freq: Status: Active Protocol: Activity Type Activity Date Activity User E-Sign Co-Sign Detail Recorded Client Recorded Date Recorded By Document 02/03/18 10:26 CS [id number] 02/03/18 10:33 CS Musculoskeletal: No Muscle Wasting Neurological: Cranial nerves II-XII grossly intact, Neuro grossly intact Psych/Mental Status: Normal Affect, Appropriate, Alert and oriented to time, place, person, mood and affect Debridement Note Post-Debridement Measurements/Treatment WC - Nurse 2 - General Ulcer CM Notes Start: 01/20/18 12:49 Freq: Status: Active Protocol: Activity Type Activity Date Activity User E-Sign Co-Sign Detail Recorded Client Recorded Date Recorded By Wound Center Nurse 2 #8 LEFT LATERAL HICKMAN Laterality: Left - Lateral calf Type of Debridement: Excisional debridement Anesthesia Used: 4% Lidocaine Solution Depth: Down to and including healthy tissue, in the subcutaneous layer Percentage of wound debrided: 100 Instrument Used: 7mm curette Severity: Fat Layer Exposed Amount of bleeding with debridement: Mild Bleeding Controlled with: Compression and gauze Patient tolerated procedure well Assessment/Plan Active Problems Open wound (Chronic) Open wound of left lower leg (Chronic) Traumatic open wound of left lower leg (Chronic) Leg swelling (Chronic) Traumatic wound (Chronic) Open wound of left lower extremity (Chronic) Assessment: This is a 77-year-old male with a traumatic injury to the left lateral calf. The patient appears to be responding well to current measures, which has included the use of collagen hydrogel topically for the last several weeks. He is doing extremely well. Healing within the next several weeks appears likely. Plan: We are to continue collagen hydrogel applied topically on a daily basis. This will be covered by Adaptic and gauze. Patient has shown significant progress. Patient will return in 1 week for reassessment. Intake of a well-balanced and nutritious diet has been advised. Patient has been advised to elevate his lower extremities, to minimize swelling and edema. The patient is not a smoker. Influenza vaccine was not administered today. Patient stands 5 feet 4 inches tall. He weighs 210 pounds. His BMI is 36.0, which places him in a class II category. Weight loss has been recommended, with collaboration with his primary care physician. 02/03/18 1138 <Electronically signed by Oz Cooper MD> Date Oz Cooper MD CC: Signed WOUND CTR HISTORY Observed: 01/27/2018 Status: F Source: [facility] 11:54 AM [facility] REPOSITORY [facility] W[facility] Center [address] [place] [id number] Wound Ctr History AND Physical 01/27/18 1150 MR#: [id number] Acct: [id number] Name: CARISSA YIP Rep #: [id number] : 1940 77 From: Oz Cooper MD PCP: Lambert Larios MD Status: REG RCR Y Location: WC (1) Obesity Status: Chronic Current Visit: No Code(s): E66.9 - Obesity, unspecified (2) Open wound Status: Chronic Current Visit: Yes Code(s): T14.8 - Other injury of unspecified body region (3) Open wound of left lower leg Status: Chronic Current Visit: Yes Qualifiers: Encounter type: subsequent encounter Code(s): S81.802A - Unspecified open wound, left lower leg, initial encounter (4) Traumatic open wound of left lower leg Status: Chronic Current Visit: Yes Qualifiers: Encounter type: subsequent encounter Code(s): S81.802A - Unspecified open wound, left lower leg, initial encounter (5) Leg swelling Status: Chronic Current Visit: Yes Code(s): M79.89 - Other specified soft tissue disorders (6) Traumatic wound Status: Chronic Current Visit: Yes (7) Open wound of left lower extremity Status: Chronic Current Visit: Yes Qualifiers: Encounter type: subsequent encounter Code(s): S81.802A - Unspecified open wound, left lower leg, initial encounter (8) History of pulmonary embolism Status: Chronic Current Visit: No Code(s): Z86.711 - Personal history of pulmonary embolism (9) Iron deficiency anemia Status: Chronic Current Visit: No Code(s): D50.9 - Iron deficiency anemia, unspecified (10) Pulmonary nodule Status: Chronic Current Visit: No Code(s): R91.1 - Solitary pulmonary nodule (11) HLD (hyperlipidemia) Status: Chronic Current Visit: No Code(s): E78.5 - Hyperlipidemia, unspecified (12) Diverticulosis Status: Chronic Current Visit: No Code(s): K57.90 - Diverticulosis of intestine, part unspecified, without perforation or abscess without bleeding (13) Asthma Status: Chronic Current Visit: No Code(s): J45.909 - Unspecified asthma, uncomplicated (14) Hypertension Status: Chronic Current Visit: No Qualifiers: Code(s): I10 - Essential (primary) hypertension (15) Osteoarthritis Status: Chronic Current Visit: No (16) History of prostate cancer Status: Chronic Current Visit: No Code(s): Z85.46 - Personal history of malignant neoplasm of prostate (17) Allergic rhinitis Status: Chronic Current Visit: No Code(s): J30.9 - Allergic rhinitis, unspecified (18) Rheumatoid arthritis Status: Chronic Current Visit: No Code(s): M06.9 - Rheumatoid arthritis, unspecified (19) Pleural plaque Status: Chronic Current Visit: No Code(s): J92.9 - Pleural plaque without asbestos (20) Macular degeneration Status: Chronic Current Visit: No Code(s): H35.30 - Unspecified macular degeneration (21) GERD (gastroesophageal reflux disease) Status: Chronic Current Visit: No Code(s): K21.9 - Gastro- esophageal reflux disease without esophagitis History of Present Illness Date of Service: 01/27/18 Chief Complaint: Recent traumatic injury of the left lower extremity with residual open wound History of Wound: This is a 77-year-old male who was in his normal state of health until September 06, 2017, at which time he sustained an injury to the left lateral calf, the result of a shovel which impaled into his left leg. The patient was rushed to the emergency department on that date, where he was treated by means of wound closure using sutures. Four days later, he had developed a cellulitis, and was admitted to the hospital for treatment. Patient was treated with antibiotics, and subsequently underwent wide surgical debridement of necrotic tissue by Dr. Homero Chin on September 12, 2017. Patient was discharged on September 16, 2017. He was discharged on Cipro 500 mg p.o. twice daily and Augmentin 875 mg p.o. twice daily. At the time of discharge, arrangements were made for the wound VAC to be the means of treatment, which has been changed every several days by home health nursing personnel. The patient had been on Xarelto and treatment for a pulmonary embolism which was diagnosed in January 2017. As result of his injury, the Xarelto has been discontinued. A noninvasive lower extremity arterial study performed in August 2016 revealed no evidence of arterial occlusive disease in the lower extremities. Therefore, there is no reason to believe there is since of any significant arterial occlusive disease. The patient has done well, showing progress with the use of the wound VAC. The patient developed cellulitis in his left lower extremity associated with fever. He was hospitalized at [facility] for approximately 4 days. He was treated initially with intravenous antibiotics consisting of Zosyn, and was subsequently discharged with a prescription for Augmentin, which has been completed. The wound VAC was discontinued, and alternative means have been implemented since that time. Collagen hydrogel is currently being applied topically every day. Past Medical History Past Medical History: Chronic Problems Obesity (Chronic) Open wound (Chronic) Open wound of left lower leg (Chronic) Traumatic open wound of left lower leg (Chronic) Leg swelling (Chronic) Traumatic wound (Chronic) Open wound of left lower extremity (Chronic) History of pulmonary embolism (Chronic) Iron deficiency anemia (Chronic) Pulmonary nodule (Chronic) HLD (hyperlipidemia) (Chronic) Diverticulosis (Chronic) Asthma (Chronic) Hypertension (Chronic) Osteoarthritis (Chronic) History of prostate cancer (Chronic) Allergic rhinitis (Chronic) Rheumatoid arthritis (Chronic) Pleural plaque (Chronic) Macular degeneration (Chronic) GERD (gastroesophageal reflux disease) (Chronic) Surgical History: - - Umbilical hernia repair, appendectomy, bilateral carpal tunnel surgery, Prostatectomy, Cataract surgery, L lens implant, L knee surgery followed by LTKR, L shoulder surgery, left total hip replacement. Allergies/Adverse Reactions: Allergies indomethacin [From Indocin] Allergy (Verified 12/06/17 11:12) Itching indomethacin sodium [From Indocin] Allergy (Verified 12/06/17 11:12) Itching oxycodone HCl [From Percocet] Allergy (Verified 12/06/17 11:12) Itching Home Medications: Ambulatory Orders Medication Instructions Recorded Albuterol Sulfate [Proventil Hfa] 2 puff IH BID 07/13/13 Azelastine HCl [Astelin] 2 spray NASAL BID 07/13/13 - Family History Sibling Diabetes, Renal Disease, - - Patient's father at the age of 76 with history of colon cancer myocardial infarction. Patient's mother at age of 86 with a history of breast cancer. Maternal Cancer Paternal Cancer Smoking Status: Never smoker Tobacco Use: Non-smoker Review of Systems Constitutional: Denies: Chills, Fever, Weight Change Eyes: Denies: Pain, Vision Change HEENT: Denies: Difficulty Hearing, Difficulty Swallowing, Sinus Congestion Cardiovascular: Denies: Chest Pain, Palpitations Respiratory: Denies: Cough, Shortness of Breath Gastrointestinal: Denies: Diarrhea, Nausea, Vomiting Genitourinary: Denies: Dysuria, Hematuria Endocrine: Denies: Heat/ Cold Intolerance, Polydipsia, Polyuria Hematologic/ Lymphatic: Denies: Easy Bruising, Easy Bleeding - Physical Exam Vital Signs Temp Pulse Resp BP 98.2 F 97 18 125/72 H 01/27/18 10:56 01/27/18 10:56 01/27/18 10:56 01/27/18 10:56 General: Alert, Oriented x3, Cooperative, No apparent distress, Well developed, Well nourished HEENT: Atraumatic, PERRLA, EOMI, Normocephalic Oral: Moist Mucosa Neck: No JVD Lungs: Normal air movement Abdomen: Non-Distended Extremities: No clubbing, No cyanosis, No edema, No Calf Tenderness, - - The traumatic wound on the left lateral calf continues to diminish in size. It is now quite small, and very superficial. Dimensions are documented elsewhere. There is no sign of infection or cellulitis. There is evidence of peripheral epithelialization. Skin: No rashes Wound Measurements and Assessment WC - Nurse 1 - General Ulcer Measurement Start: 01/20/18 12:49 Freq: Status: Active Protocol: Activity Type Activity Date Activity User E-Sign Co-Sign Detail Recorded Client Recorded Date Recorded By Document 01/27/18 10:56 [facility] [id number] 01/27/18 11:11 [facility] Wound Center Nurse 1 [Ulcer Assessment] #7 LATERAL LLE- POST OP 09/12/17 -Combined with other wound No WC - Nurse 2 - General Ulcer CM Notes Start: 01/20/18 12:49 Freq: Status: Active Protocol: Activity Type Activity Date Activity User E-Sign Co-Sign Detail Recorded Client Recorded Date Recorded By Document 01/27/18 11:48 [id number] 01/27/18 11:49 Wound Center Nurse 2 [Procedure/Treatment] Musculoskeletal: No Muscle Wasting Neurological: Cranial nerves II-XII grossly intact, Neuro grossly intact Psych/Mental Status: Normal Affect, Appropriate, Alert and oriented to time, place, person, mood and affect Debridement Note Post-Debridement Measurements/Treatment WC - Nurse 2 - General Ulcer CM Notes Start: 01/20/18 12:49 Freq: Status: Active Protocol: Activity Type Activity Date Activity User E-Sign Co-Sign Detail Wound Center Nurse 2 #7 LATERAL LLE- POST OP 09/12/17 -Time 13:24 11:48 Laterality: Left - Lateral calf Type of Debridement: Selective debridement Anesthesia Used: 4% Lidocaine Solution Depth: Down to and including healthy tissue Percentage of wound debrided: 100 Instrument Used: 5mm curette Severity: Limited To Skin Breakdown Amount of bleeding with debridement: Mild Bleeding Controlled with: Compression and gauze Patient tolerated procedure well Assessment/Plan Active Problems Open wound (Chronic) Open wound of left lower leg (Chronic) Traumatic open wound of left lower leg (Chronic) Leg swelling (Chronic) Traumatic wound (Chronic) Open wound of left lower extremity (Chronic) Assessment: This is a 77-year-old male with a traumatic injury to the left lateral calf. The patient appears to be responding well to current measures, which has included the use of collagen hydrogel topically for the last several weeks. He is doing extremely well. Healing within the next several weeks appears likely. Plan: We are to continue collagen hydrogel applied topically on a daily basis. This will be covered by Adaptic and gauze. Patient has shown significant progress. Patient will return in 1 week for reassessment. Intake of a well-balanced and nutritious diet has been advised. Patient has been advised to elevate his lower extremities, to minimize swelling and edema. The patient is not a smoker. Influenza vaccine was not administered today. Patient stands 5 feet 4 inches tall. He weighs 210 pounds. His BMI is 36.0, which places him in a class II category. Weight loss has been recommended, with collaboration with his primary care physician. 01/27/18 1154 <Electronically signed by Oz Cooper MD> Date Oz Cooper MD CC: Signed CNPTOUTREACH Observed: 01/27/2018 Status: COMPLETED Source: [place] 12:00 AM [facility] REPOSITORY Patient Outreach ([facility]) CARISSA YIP ([id number]) 1940 M Date Time Provider Department 01/27/18 [facility] During your visit today, we recorded the following information about you: Allergies As of Date: 01/27/2018 Noted Allergy Reaction INDOCIN (INDOMETHACIN SODIUM) 04/01/2011 14 - Other: See Comments Comments: Wheezing, can take naprosyn PERCOCET (OXYCODONE-ACETAMINOPHEN)01/08/2005 9 - Itching SEASONAL ALLERGIES 11/12/2012 14 - Other: See Comments Comments: Cat, Goats, Dust mites, molds, trees, grasses, weed, ragweed Date Reviewed: 01/01/2018 Reviewed by: Chari Graff - Fully Assessed Visit Diagnosis:Medication management [Z79.899] Order(s):HGB A1C [ISVHP8N] Order #: [id number] FUTURE Prescriptions as of 01/27/2018 Sig: GUAIFENESIN ER 600 MG TABLET,* Take 1 tablet by mouth twice * ASPIRIN 81 MG TABLET,DELAYED * Take 81 mg by mouth once christiano* AZELASTINE 137 MCG (0.1 %) NA* instill 2 sprays into each no* FLUTICASONE 50 MCG/ACTUATION * instill 2 sprays into each no* X PREDNISONE 10 MG TABLETS IN A* 4 tablets once a day for 5 da* ALBUTEROL SULFATE 2.5 MG/3 ML* Use 3 mL via nebulizer every * X SPIRIVA WITH HANDIHALER 18 MC* inhale the contents of one ca* SERTRALINE 100 MG TABLET Take 1.5 tablets by mouth onc* MONTELUKAST 10 MG TABLET Take 1 tablet by mouth daily * NITROGLYCERIN 0.4 MG SUBLINGU* Dissolve 1 tablet under the t* ADVAIR HFA 230 MCG-21 MCG/ACT* take 2 inhalations by mouth t* OMEPRAZOLE 20 MG CAPSULE,ALEX* Take 1 capsule by mouth daily* LISINOPRIL 20 MG TABLET Take 1 tablet by mouth once d* ATORVASTATIN 10 MG TABLET take 1 tablet by mouth at bed* LEFLUNOMIDE 10 MG TABLET Take 10 mg by mouth once christiano* VENTOLIN HFA 90 MCG/ACTUATION* inhale 2 puffs every 4 hours * X NYSTATIN-TRIAMCINOLONE 100,00* Apply 1 application to affect* IPRATROPIUM-ALBUTEROL 0.5 MG-* Inhale 3 mL as instructed fou* EPINEPHRINE 0.3 MG/0.3 ML INJ* Inject 0.3 mL intramuscularly* ALBUTEROL SULFATE HFA 90 MCG/* Inhale 2 Puffs as instructed. POLYETHYLENE GLYCOL 3350 17 G* Take 17 g by mouth once daily* IPRATROPIUM BROMIDE 0.02 % SO* 500 mcg (one ampule) nebulize* PRESERVISION AREDS 7,160 UNIT* Take one(1) tablet two(2) link* Problem List As Of Date 01/27/2018 Noted Resolved Asthma [J45.909] 08/25/2017 CHRONIC RHINITIS [J31.0] BPH without obstruction/lower urinary tract sym* ANXIETY STATE NOS [F41.1] 08/05/2014 Depression with anxiety [F41.8] Diverticulosis of colon (without mention of hem* 10/06/2012 ESOPHAGEAL REFLUX [K21.9] Internal hemorrhoids without mention of complic* 08/30/2010 Malignant neoplasm of prostate (HCC) [C61] INVALID FOR*08/05/2014 MACULAR DEGENERATION NOS [H35.30] Other specified iron deficiency anemias [D50.8] INVALID FOR*08/30/2010 Diabetes mellitus type 2, controlled, without c*INVALID FOR* Hyperlipidemia [E78.5] INVALID FOR* Personal history of colonic polyps [Z86.010] INVALID FOR*09/30/2011 More... FAMILY HX COLON CANCER [Z80.0] INVALID FOR*08/25/2017 PULMONARY NODULES [J98.4] INVALID FOR*10/06/2012 More... 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] INVALID FOR* Essential hypertension [I10] INVALID FOR* Generalized osteoarthritis of multiple sites [M*INVALID FOR* Benign neoplasm of rectum and anal canal [D12.8*INVALID FOR*10/06/2012 Benign neoplasm of colon [D12.6] INVALID FOR* Gout [M10.9] INVALID FOR* Venous insufficiency of leg [I87.2] INVALID FOR* Iron deficiency anemia due to chronic blood los*INVALID FOR* Inflammatory polyarthropathy of multiple sites *INVALID FOR* Unsteady gait [R26.81] INVALID FOR* Uncomplicated severe persistent asthma [J45.50] INVALID FOR* Other pulmonary embolism without acute cor pulm*INVALID FOR*12/29/2017 Pulmonary hypertension (HCC) [I27.20] INVALID FOR* Memory disturbance [R41.3] INVALID FOR* Obesity, Class I, BMI 30-34.9 E66.9 [E66.9] INVALID FOR* Open wound of left lower extremity [S81.802A] INVALID FOR* 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] INVALID FOR*12/29/2017 Allergic rhinitis due to cats [J30.81] INVALID FOR* Allergic rhinitis due to dust mite [J30.89] INVALID FOR* Allergic rhinitis due to fungal spores [J30.89] INVALID FOR* Seasonal allergic rhinitis due to pollen [J30.1]INVALID FOR* Encounter Status:Closed by EPIC, PRODUSER on 02/27/18 WOUND CTR HISTORY Observed: 01/20/2018 Status: F Source: [facility] 1:40 PM [facility] [place] REPOSITORY [facility] [address] [place] [address] Wound Ctr History AND Physical 01/20/18 1335 MR#: [id number] Acct: [id number] Name: CARISSA YIP Rep #: [id number] : 1940 77 From: Oz Cooper MD PCP: Lambert Larios MD Status: REG RCR Y Location: WC (1) Obesity Status: Chronic Current Visit: No Code(s): E66.9 - Obesity, unspecified (2) Open wound Status: Chronic Current Visit: Yes Code(s): T14.8 - Other injury of unspecified body region (3) Open wound of left lower leg Status: Chronic Current Visit: Yes Qualifiers: Encounter type: subsequent encounter Code(s): S81.802A - Unspecified open wound, left lower leg, initial encounter (4) Traumatic open wound of left lower leg Status: Chronic Current Visit: Yes Qualifiers: Encounter type: subsequent encounter Code(s): S81.802A - Unspecified open wound, left lower leg, initial encounter (5) Leg swelling Status: Chronic Current Visit: Yes Code(s): M79.89 - Other specified soft tissue disorders (6) Traumatic wound Status: Chronic Current Visit: Yes (7) Open wound of left lower extremity Status: Chronic Current Visit: Yes Qualifiers: Encounter type: subsequent encounter Code(s): S81.802A - Unspecified open wound, left lower leg, initial encounter (8) Cellulitis of left leg Status: Resolved Current Visit: No Code(s): L03.116 - Cellulitis of left lower limb (9) History of pulmonary embolism Status: Chronic Current Visit: No Code(s): Z86.711 - Personal history of pulmonary embolism (10) 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 Status: Resolved Current Visit: No Code(s): L97.929 - Non-pressure chronic ulcer of unspecified part of left lower leg with unspecified severity; L08.9 - Local infection of the skin and subcutaneous tissue, unspecified (11) Iron deficiency anemia Status: Chronic Current Visit: No Code(s): D50.9 - Iron deficiency anemia, unspecified (12) Pulmonary nodule Status: Chronic Current Visit: No Code(s): R91.1 - Solitary pulmonary nodule (13) HLD (hyperlipidemia) Status: Chronic Current Visit: No Code(s): E78.5 - Hyperlipidemia, unspecified (14) Diverticulosis Status: Chronic Current Visit: No Code(s): K57.90 - Diverticulosis of intestine, part unspecified, without perforation or abscess without bleeding (15) Asthma Status: Chronic Current Visit: No Code(s): J45.909 - Unspecified asthma, uncomplicated (16) Hypertension Status: Chronic Current Visit: No Qualifiers: Code(s): I10 - Essential (primary) hypertension (17) Osteoarthritis Status: Chronic Current Visit: No (18) Penetrating injury right leg Status: Resolved Current Visit: No (19) History of prostate cancer Status: Chronic Current Visit: No Code(s): Z85.46 - Personal history of malignant neoplasm of prostate (20) Allergic rhinitis Status: Chronic Current Visit: No Code(s): J30.9 - Allergic rhinitis, unspecified (21) Rheumatoid arthritis Status: Chronic Current Visit: No Code(s): M06.9 - Rheumatoid arthritis, unspecified (22) Pleural plaque Status: Chronic Current Visit: No Code(s): J92.9 - Pleural plaque without asbestos (23) Macular degeneration Status: Chronic Current Visit: No Code(s): H35.30 - Unspecified macular degeneration (24) GERD (gastroesophageal reflux disease) Status: Chronic Current Visit: No Code(s): K21.9 - Gastro- esophageal reflux disease without esophagitis History of Present Illness Date of Service: 01/20/18 Chief Complaint: Recent traumatic injury of the left lower extremity with residual open wound History of Wound: This is a 77-year-old male who was in his normal state of health until September 06, 2017, at which time he sustained an injury to the left lateral calf, the result of a shovel which impaled into his left leg. The patient was rushed to the emergency department on that date, where he was treated by means of wound closure using sutures. Four days later, he had developed a cellulitis, and was admitted to the hospital for treatment. Patient was treated with antibiotics, and subsequently underwent wide surgical debridement of necrotic tissue by Dr. Homero Chin on September 12, 2017. Patient was discharged on September 16, 2017. He was discharged on Cipro 500 mg p.o. twice daily and Augmentin 875 mg p.o. twice daily. At the time of discharge, arrangements were made for the wound VAC to be the means of treatment, which has been changed every several days by home health nursing personnel. The patient had been on Xarelto and treatment for a pulmonary embolism which was diagnosed in January 2017. As result of his injury, the Xarelto has been discontinued. A noninvasive lower extremity arterial study performed in August 2016 revealed no evidence of arterial occlusive disease in the lower extremities. Therefore, there is no reason to believe there is since of any significant arterial occlusive disease. The patient has done well, showing progress with the use of the wound VAC. The patient developed cellulitis in his left lower extremity associated with fever. He was hospitalized at [facility] for approximately 4 days. He was treated initially with intravenous antibiotics consisting of Zosyn, and was subsequently discharged with a prescription for Augmentin, which has been completed. The wound VAC was discontinued, and alternative means have been implemented since that time. Collagen hydrogel is currently being applied topically every day. Past Medical History Past Medical History: Chronic Problems Obesity (Chronic) Open wound (Chronic) Open wound of left lower leg (Chronic) Traumatic open wound of left lower leg (Chronic) Leg swelling (Chronic) Traumatic wound (Chronic) Open wound of left lower extremity (Chronic) History of pulmonary embolism (Chronic) Iron deficiency anemia (Chronic) Pulmonary nodule (Chronic) HLD (hyperlipidemia) (Chronic) Diverticulosis (Chronic) Asthma (Chronic) Hypertension (Chronic) Osteoarthritis (Chronic) History of prostate cancer (Chronic) Allergic rhinitis (Chronic) Rheumatoid arthritis (Chronic) Pleural plaque (Chronic) Macular degeneration (Chronic) GERD (gastroesophageal reflux disease) (Chronic) Surgical History: - - Umbilical hernia repair, appendectomy, bilateral carpal tunnel surgery, Prostatectomy, Cataract surgery, L lens implant, L knee surgery followed by LTKR, L shoulder surgery, left total hip replacement. Allergies/Adverse Reactions: Allergies indomethacin [From Indocin] Allergy (Verified 12/06/17 11:12) Itching indomethacin sodium [From Indocin] Allergy (Verified 12/06/17 11:12) Itching oxycodone HCl [From Percocet] Allergy (Verified 12/06/17 11:12) Itching Home Medications: Ambulatory Orders Medication Instructions Recorded Albuterol Sulfate [Proventil Hfa] 2 puff IH BID 07/13/13 Azelastine HCl [Astelin] 2 spray NASAL BID 07/13/13 - Family History Sibling Diabetes, Renal Disease, - - Patient's father at the age of 76 with history of colon cancer myocardial infarction. Patient's mother at age of 86 with a history of breast cancer. Maternal Cancer Paternal Cancer Smoking Status: Never smoker Tobacco Use: Non-smoker Review of Systems Constitutional: Denies: Chills, Fever, Weight Change Eyes: Denies: Pain, Vision Change HEENT: Denies: Difficulty Hearing, Difficulty Swallowing, Sinus Congestion Cardiovascular: Denies: Chest Pain, Palpitations Respiratory: Denies: Cough, Shortness of Breath Gastrointestinal: Denies: Diarrhea, Nausea, Vomiting Genitourinary: Denies: Dysuria, Hematuria Endocrine: Denies: Heat/ Cold Intolerance, Polydipsia, Polyuria Hematologic/ Lymphatic: Denies: Easy Bruising, Easy Bleeding - Physical Exam Vital Signs Temp Pulse Resp BP 96.9 F L 100 18 134/75 H 01/20/18 12:49 01/20/18 12:49 01/20/18 12:49 01/20/18 12:49 General: Alert, Oriented x3, Cooperative, No apparent distress, Well developed, Well nourished HEENT: Atraumatic, PERRLA, EOMI, Normocephalic Oral: Moist Mucosa Neck: No JVD Lungs: Normal air movement Abdomen: Non-Distended Extremities: No clubbing, No cyanosis, No Calf Tenderness, - - Swelling and edema in the left lower extremity appears to be reasonably well controlled. The traumatic wound is markedly smaller in size, with evidence of peripheral epithelialization. There is no sign of infection or cellulitis. Dimensions are documented elsewhere. The base of the wound is pink and healthy in appearance. Skin: No rashes Wound Measurements and Assessment - Nurse 1 - General Ulcer Measurement Start: 01/20/18 12:49 Freq: Status: Active Protocol: Activity Type Activity Date Activity User E-Sign Co-Sign Detail Recorded Client Recorded Date Recorded By Document 01/20/18 12:49 [id number] 01/20/18 12:51 Wound Center Nurse 1 [Ulcer Assessment] #7 LATERAL LLE- POST OP 09/12/17 -Combined with other wound No -Current Size (cm) - Length 2.2 -Current Size (cm) - Width 0.3 WC - Nurse 2 - General Ulcer CM Notes Start: 01/20/18 12:49 Freq: Status: Active Protocol: Activity Type Activity Date Activity User E-Sign Co-Sign Detail Recorded Client Recorded Date Recorded By Document 01/20/18 13:24 [id number] 01/20/18 13:28 Wound Center Nurse 2 Musculoskeletal: No Muscle Wasting Neurological: Cranial nerves II-XII grossly intact, Neuro grossly intact Psych/Mental Status: Normal Affect, Appropriate, Alert and oriented to time, place, person, mood and affect Debridement Note Post-Debridement Measurements/Treatment - Nurse 2 - General Ulcer CM Notes Start: 01/20/18 12:49 Freq: Status: Active Protocol: Activity Type Activity Date Activity User E-Sign Co-Sign Detail Recorded Client Recorded Date Recorded By Document 01/20/18 13:24 [id number] 01/20/18 13:28 Wound Center Nurse 2 #7 LATERAL LLE- POST OP 09/12/17 -Time 13:24 -Correct Patient Yes -Correct Side, Site, Position Yes Laterality: Left - Lateral calf Type of Debridement: Excisional debridement Anesthesia Used: 4% Lidocaine Solution Depth: Down to and including healthy tissue, in the subcutaneous layer Percentage of wound debrided: 100 Instrument Used: 5mm curette Severity: Fat Layer Exposed Amount of bleeding with debridement: Mild Bleeding Controlled with: Compression and gauze Patient tolerated procedure well Assessment/Plan Active Problems Open wound (Chronic) Open wound of left lower leg (Chronic) Traumatic open wound of left lower leg (Chronic) Leg swelling (Chronic) Traumatic wound (Chronic) Open wound of left lower extremity (Chronic) Assessment: This is a 77-year-old male with a traumatic injury to the left lateral calf. The patient appears to be responding well to current measures, which has included the use of collagen hydrogel topically for the last several weeks. He is doing extremely well. Healing within the next several weeks appears likely to be completed. Plan: We are to continue collagen hydrogel applied topically on a daily basis. This will be covered by Adaptic and gauze. Patient has shown significant progress. Patient will return in 1 week for reassessment. Intake of a well-balanced and nutritious diet has been advised. Patient has been advised to elevate his lower extremities, to minimize swelling and edema. The patient is not a smoker. Influenza vaccine was not administered today. Patient stands 5 feet 4 inches tall. He weighs 210 pounds. His BMI is 36.0, which places him in a class II category. Weight loss has been recommended, with collaboration with his primary care physician. 01/20/18 1340 <Electronically signed by Oz Cooper MD> Date Oz Cooper MD CC: Signed WOUND CTR HISTORY Observed: 01/13/2018 Status: F Source: [facility] 12:48 PM [facility] [place] REPOSITORY [facility] Wound [facility]aling Center [address] [id number] Wound Ctr History AND Physical 01/13/18 1246 MR#: [id number] Acct: [id number] Name: CARISSA YIP Rep #: [id number] : [id number] 77 From: Oz Cooper MD PCP: Lambert Larios MD Status: REG RCR Y Location: WC (1) Obesity Status: Chronic Current Visit: No Code(s): E66.9 - Obesity, unspecified (2) Open wound Status: Chronic Current Visit: Yes Code(s): T14.8 - Other injury of unspecified body region (3) Open wound of left lower leg Status: Chronic Current Visit: Yes Qualifiers: Encounter type: subsequent encounter Code(s): S81.802A - Unspecified open wound, left lower leg, initial encounter (4) Traumatic open wound of left lower leg Status: Chronic Current Visit: Yes Qualifiers: Encounter type: subsequent encounter Code(s): S81.802A - Unspecified open wound, left lower leg, initial encounter (5) Leg swelling Status: Chronic Current Visit: Yes Code(s): M79.89 - Other specified soft tissue disorders (6) Traumatic wound Status: Chronic Current Visit: Yes (7) Open wound of left lower extremity Status: Chronic Current Visit: Yes Qualifiers: Encounter type: subsequent encounter Code(s): S81.802A - Unspecified open wound, left lower leg, initial encounter (8) History of pulmonary embolism Status: Chronic Current Visit: No Code(s): Z86.711 - Personal history of pulmonary embolism (9) Iron deficiency anemia Status: Chronic Current Visit: No Code(s): D50.9 - Iron deficiency anemia, unspecified (10) Pulmonary nodule Status: Chronic Current Visit: No Code(s): R91.1 - Solitary pulmonary nodule (11) HLD (hyperlipidemia) Status: Chronic Current Visit: No Code(s): E78.5 - Hyperlipidemia, unspecified (12) Diverticulosis Status: Chronic Current Visit: No Code(s): K57.90 - Diverticulosis of intestine, part unspecified, without perforation or abscess without bleeding (13) Asthma Status: Chronic Current Visit: No Code(s): J45.909 - Unspecified asthma, uncomplicated (14) Hypertension Status: Chronic Current Visit: No Qualifiers: Code(s): I10 - Essential (primary) hypertension (15) Osteoarthritis Status: Chronic Current Visit: No (16) History of prostate cancer Status: Chronic Current Visit: No Code(s): Z85.46 - Personal history of malignant neoplasm of prostate (17) Allergic rhinitis Status: Chronic Current Visit: No Code(s): J30.9 - Allergic rhinitis, unspecified (18) Rheumatoid arthritis Status: Chronic Current Visit: No Code(s): M06.9 - Rheumatoid arthritis, unspecified (19) Pleural plaque Status: Chronic Current Visit: No Code(s): J92.9 - Pleural plaque without asbestos (20) Macular degeneration Status: Chronic Current Visit: No Code(s): H35.30 - Unspecified macular degeneration (21) GERD (gastroesophageal reflux disease) Status: Chronic Current Visit: No Code(s): K21.9 - Gastro- esophageal reflux disease without esophagitis History of Present Illness Date of Service: 01/13/18 Chief Complaint: Recent traumatic injury of the left lower extremity with residual open wound History of Wound: This is a 77-year-old male who was in his normal state of health until September 06, 2017, at which time he sustained an injury to the left lateral calf, the result of a shovel which impaled into his left leg. The patient was rushed to the emergency department on that date, where he was treated by means of wound closure using sutures. Four days later, he had developed a cellulitis, and was admitted to the hospital for treatment. Patient was treated with antibiotics, and subsequently underwent wide surgical debridement of necrotic tissue by Dr. Homero Chin on September 12, 2017. Patient was discharged on September 16, 2017. He was discharged on Cipro 500 mg p.o. twice daily and Augmentin 875 mg p.o. twice daily. At the time of discharge, arrangements were made for the wound VAC to be the means of treatment, which has been changed every several days by home health nursing personnel. The patient had been on Xarelto and treatment for a pulmonary embolism which was diagnosed in January 2017. As result of his injury, the Xarelto has been discontinued. A noninvasive lower extremity arterial study performed in August 2016 revealed no evidence of arterial occlusive disease in the lower extremities. Therefore, there is no reason to believe there is since of any significant arterial occlusive disease. The patient has done well, showing progress with the use of the wound VAC. The patient developed cellulitis in his left lower extremity associated with fever. He was hospitalized at [facility] for approximately 4 days. He was treated initially with intravenous antibiotics consisting of Zosyn, and was subsequently discharged with a prescription for Augmentin, which has been completed. The wound VAC was discontinued, and alternative means have been implemented since that time. Collagen hydrogel is currently being applied topically every day. Past Medical History Past Medical History: Chronic Problems Obesity (Chronic) Open wound (Chronic) Open wound of left lower leg (Chronic) Traumatic open wound of left lower leg (Chronic) Leg swelling (Chronic) Traumatic wound (Chronic) Open wound of left lower extremity (Chronic) History of pulmonary embolism (Chronic) Iron deficiency anemia (Chronic) Pulmonary nodule (Chronic) HLD (hyperlipidemia) (Chronic) Diverticulosis (Chronic) Asthma (Chronic) Hypertension (Chronic) Osteoarthritis (Chronic) History of prostate cancer (Chronic) Allergic rhinitis (Chronic) Rheumatoid arthritis (Chronic) Pleural plaque (Chronic) Macular degeneration (Chronic) GERD (gastroesophageal reflux disease) (Chronic) Surgical History: - - Umbilical hernia repair, appendectomy, bilateral carpal tunnel surgery, Prostatectomy, Cataract surgery, L lens implant, L knee surgery followed by LTKR, L shoulder surgery, left total hip replacement. Allergies/Adverse Reactions: Allergies indomethacin [From Indocin] Allergy (Verified 12/06/17 11:12) Itching indomethacin sodium [From Indocin] Allergy (Verified 12/06/17 11:12) Itching oxycodone HCl [From Percocet] Allergy (Verified 12/06/17 11:12) Itching Home Medications: Ambulatory Orders Medication Instructions Recorded Albuterol Sulfate [Proventil Hfa] 2 puff IH BID 07/13/13 Azelastine HCl [Astelin] 2 spray NASAL BID 07/13/13 - Family History Sibling Diabetes, Renal Disease, - - Patient's father at the age of 76 with history of colon cancer myocardial infarction. Patient's mother at age of 86 with a history of breast cancer. Maternal Cancer Paternal Cancer Smoking Status: Never smoker Tobacco Use: Non-smoker Review of Systems Constitutional: Denies: Chills, Fever, Weight Change Eyes: Denies: Pain, Vision Change HEENT: Denies: Difficulty Hearing, Difficulty Swallowing, Sinus Congestion Cardiovascular: Denies: Chest Pain, Palpitations Respiratory: Denies: Cough, Shortness of Breath Gastrointestinal: Denies: Diarrhea, Nausea, Vomiting Genitourinary: Denies: Dysuria, Hematuria Endocrine: Denies: Heat/ Cold Intolerance, Polydipsia, Polyuria Hematologic/ Lymphatic: Denies: Easy Bruising, Easy Bleeding - Physical Exam Vital Signs Temp Pulse Resp BP 97.3 F L 92 18 153/68 H 01/13/18 11:42 01/13/18 11:42 01/13/18 11:42 01/13/18 11:42 General: Alert, Oriented x3, Cooperative, No apparent distress, Well developed, Well nourished HEENT: Atraumatic, PERRLA, EOMI, Normocephalic Oral: Moist Mucosa Neck: No JVD Lungs: Normal air movement Abdomen: Non-Distended Extremities: No clubbing, No cyanosis, No edema, No Calf Tenderness, - - The traumatic wound on the left lateral calf continues to diminish in size. It is significantly smaller. Dimensions are documented elsewhere. There is only a mild amount of bioburden. There is no sign of infection or cellulitis. A few superficial excoriations are noted inferior to the traumatic wound, as the patient has been scratching using his fingernails. Skin: No rashes Wound Measurements and Assessment WC - Nurse 1 - General Ulcer Measurement Start: 12/23/17 12:07 Freq: Status: Active Protocol: Activity Type Activity Date Activity User E-Sign Co-Sign Detail Recorded Client Recorded Date Recorded By Document 01/13/18 11:42 CS [id number] 01/13/18 11:45 CS Wound Center Nurse 1 [Ulcer Assessment] #7 LATERAL LLE- POST OP 09/12/17 - Nurse 2 - General Ulcer CM Notes Start: 12/23/17 12:07 Freq: Status: Active Protocol: Activity Type Activity Date Activity User E-Sign Co-Sign Detail Recorded Client Recorded Date Recorded By Document 01/13/18 12:30 JS [id number] 01/13/18 12:43 JS Wound Center Nurse 2 [Procedure/Treatment] #7 LATERAL LLE- POST OP 09/12/17 Neurological: Cranial nerves II-XII grossly intact, Neuro grossly intact Psych/Mental Status: Normal Affect, Appropriate, Alert and oriented to time, place, person, mood and affect Debridement Note Post-Debridement Measurements/Treatment - Nurse 2 - General Ulcer CM Notes Start: 12/23/17 12:07 Freq: Status: Active Protocol: Activity Type Activity Date Activity User E-Sign Co-Sign Detail Recorded Client Recorded Date Recorded By Document 12/23/17 12:28 JS [id number] 12/23/17 12:30 Wound Center Nurse 2 #7 LATERAL LLE- POST OP 09/12/17 Wound Center Nurse 2 #7 LATERAL LLE- POST OP 09/12/17 -Time 12:32 -Correct Patient Yes -Correct Side, Site, Position Yes -Correct Procedure Yes Laterality: Left - Lateral calf Type of Debridement: Excisional debridement Anesthesia Used: 4% Lidocaine Solution Depth: Down to and including healthy tissue, in the subcutaneous layer Percentage of wound debrided: 100 Instrument Used: 5mm curette Severity: Fat Layer Exposed Amount of bleeding with debridement: Mild Bleeding Controlled with: Compression and gauze Patient tolerated procedure well Assessment/Plan Active Problems Open wound (Chronic) Open wound of left lower leg (Chronic) Traumatic open wound of left lower leg (Chronic) Leg swelling (Chronic) Traumatic wound (Chronic) Open wound of left lower extremity (Chronic) Assessment: This is a 77-year-old male with a traumatic injury to the left lateral calf. The patient appears to be responding well to current measures, which has included the use of collagen hydrogel topically for the last several weeks. Plan: We are to continue collagen hydrogel applied topically on a daily basis. This will be covered by Adaptic and gauze. Patient has shown significant progress. Patient will return in 1 week for reassessment. Intake of a well-balanced and nutritious diet has been advised. Patient has been advised to elevate his lower extremities, to minimize swelling and edema. The patient is not a smoker. Influenza vaccine was not administered today. Patient stands 5 feet 4 inches tall. He weighs 210 pounds. His BMI is 36.0, which places him in a class II category. Weight loss has been recommended, with collaboration with his primary care physician. 01/13/18 1248 <Electronically signed by Oz Cooper MD> Date Oz Cooper MD CC: Signed WOUND CTR HISTORY Observed: 01/06/2018 Status: F Source: [facility] 12:44 PM [facility] [place] REPOSITORY [facility] [address] [place] [id number] W[address] C[facility] History AND Physical 01/06/18 1241 MR#: [id number] Acct: [id number] Name: CARISSA YIP Rep #: [id number] : [id number] 77 From: Oz Cooper MD PCP: Lambert Larios MD Status: REG RCR Y Location: WC (1) Obesity Status: Chronic Current Visit: No Code(s): E66.9 - Obesity, unspecified (2) Open wound Status: Chronic Current Visit: Yes Code(s): T14.8 - Other injury of unspecified body region (3) Open wound of left lower leg Status: Chronic Current Visit: Yes Qualifiers: Encounter type: subsequent encounter Code(s): S81.802A - Unspecified open wound, left lower leg, initial encounter (4) Traumatic open wound of left lower leg Status: Chronic Current Visit: Yes Qualifiers: Encounter type: subsequent encounter Code(s): S81.802A - Unspecified open wound, left lower leg, initial encounter (5) Leg swelling Status: Chronic Current Visit: Yes Code(s): M79.89 - Other specified soft tissue disorders (6) Traumatic wound Status: Chronic Current Visit: Yes (7) Open wound of left lower extremity Status: Chronic Current Visit: Yes Qualifiers: Encounter type: subsequent encounter Code(s): S81.802A - Unspecified open wound, left lower leg, initial encounter (8) History of pulmonary embolism Status: Chronic Current Visit: No Code(s): Z86.711 - Personal history of pulmonary embolism (9) Iron deficiency anemia Status: Chronic Current Visit: No Code(s): D50.9 - Iron deficiency anemia, unspecified (10) Pulmonary nodule Status: Chronic Current Visit: No Code(s): R91.1 - Solitary pulmonary nodule (11) HLD (hyperlipidemia) Status: Chronic Current Visit: No Code(s): E78.5 - Hyperlipidemia, unspecified (12) Diverticulosis Status: Chronic Current Visit: No Code(s): K57.90 - Diverticulosis of intestine, part unspecified, without perforation or abscess without bleeding (13) Asthma Status: Chronic Current Visit: No Code(s): J45.909 - Unspecified asthma, uncomplicated (14) Hypertension Status: Chronic Current Visit: No Qualifiers: Code(s): I10 - Essential (primary) hypertension (15) Osteoarthritis Status: Chronic Current Visit: No (16) History of prostate cancer Status: Chronic Current Visit: No Code(s): Z85.46 - Personal history of malignant neoplasm of prostate (17) Allergic rhinitis Status: Chronic Current Visit: No Code(s): J30.9 - Allergic rhinitis, unspecified (18) Rheumatoid arthritis Status: Chronic Current Visit: No Code(s): M06.9 - Rheumatoid arthritis, unspecified (19) Pleural plaque Status: Chronic Current Visit: No Code(s): J92.9 - Pleural plaque without asbestos (20) Macular degeneration Status: Chronic Current Visit: No Code(s): H35.30 - Unspecified macular degeneration (21) GERD (gastroesophageal reflux disease) Status: Chronic Current Visit: No Code(s): K21.9 - Gastro- esophageal reflux disease without esophagitis History of Present Illness Date of Service: 01/06/18 Chief Complaint: Recent traumatic injury of the left lower extremity with residual open wound History of Wound: This is a 77-year-old male who was in his normal state of health until September 06, 2017, at which time he sustained an injury to the left lateral calf, the result of a shovel which impaled into his left leg. The patient was rushed to the emergency department on that date, where he was treated by means of wound closure using sutures. Four days later, he had developed a cellulitis, and was admitted to the hospital for treatment. Patient was treated with antibiotics, and subsequently underwent wide surgical debridement of necrotic tissue by Dr. Homero Chin on September 12, 2017. Patient was discharged on September 16, 2017. He was discharged on Cipro 500 mg p.o. twice daily and Augmentin 875 mg p.o. twice daily. At the time of discharge, arrangements were made for the wound VAC to be the means of treatment, which has been changed every several days by home health nursing personnel. The patient had been on Xarelto and treatment for a pulmonary embolism which was diagnosed in January 2017. As result of his injury, the Xarelto has been discontinued. A noninvasive lower extremity arterial study performed in August 2016 revealed no evidence of arterial occlusive disease in the lower extremities. Therefore, there is no reason to believe there is since of any significant arterial occlusive disease. The patient has done well, showing progress with the use of the wound VAC. The patient developed cellulitis in his left lower extremity associated with fever. He was hospitalized at [facility] for approximately 4 days. He was treated initially with intravenous antibiotics consisting of Zosyn, and was subsequently discharged with a prescription for Augmentin, which has been completed. The wound VAC was discontinued, and alternative means have been implemented since that time. Collagen hydrogel is currently being applied topically every day. Past Medical History Past Medical History: Chronic Problems Obesity (Chronic) Open wound (Chronic) Open wound of left lower leg (Chronic) Traumatic open wound of left lower leg (Chronic) Leg swelling (Chronic) Traumatic wound (Chronic) Open wound of left lower extremity (Chronic) History of pulmonary embolism (Chronic) Iron deficiency anemia (Chronic) Pulmonary nodule (Chronic) HLD (hyperlipidemia) (Chronic) Diverticulosis (Chronic) Asthma (Chronic) Hypertension (Chronic) Osteoarthritis (Chronic) History of prostate cancer (Chronic) Allergic rhinitis (Chronic) Rheumatoid arthritis (Chronic) Pleural plaque (Chronic) Macular degeneration (Chronic) GERD (gastroesophageal reflux disease) (Chronic) Surgical History: - - Umbilical hernia repair, appendectomy, bilateral carpal tunnel surgery, Prostatectomy, Cataract surgery, L lens implant, L knee surgery followed by LTKR, L shoulder surgery, left total hip replacement. Allergies/Adverse Reactions: Allergies indomethacin [From Indocin] Allergy (Verified 12/06/17 11:12) Itching indomethacin sodium [From Indocin] Allergy (Verified 12/06/17 11:12) Itching oxycodone HCl [From Percocet] Allergy (Verified 12/06/17 11:12) Itching Home Medications: Ambulatory Orders Medication Instructions Recorded Albuterol Sulfate [Proventil Hfa] 2 puff IH BID 07/13/13 Azelastine HCl [Astelin] 2 spray NASAL BID 07/13/13 - Family History Sibling Diabetes, Renal Disease, - - Patient's father at the age of 76 with history of colon cancer myocardial infarction. Patient's mother at age of 86 with a history of breast cancer. Maternal Cancer Paternal Cancer Smoking Status: Never smoker Tobacco Use: Non-smoker Review of Systems Constitutional: Denies: Chills, Fever, Weight Change Eyes: Denies: Pain, Vision Change HEENT: Denies: Difficulty Hearing, Difficulty Swallowing, Sinus Congestion Cardiovascular: Denies: Chest Pain, Palpitations Respiratory: Denies: Cough, Shortness of Breath Gastrointestinal: Denies: Diarrhea, Nausea, Vomiting Genitourinary: Denies: Dysuria, Hematuria Endocrine: Denies: Heat/ Cold Intolerance, Polydipsia, Polyuria Hematologic/ Lymphatic: Denies: Easy Bruising, Easy Bleeding - Physical Exam Vital Signs Temp Pulse Resp BP 98 F 80 20 H 134/61 H 01/06/18 11:32 01/06/18 11:32 01/06/18 11:32 01/06/18 11:32 General: Alert, Oriented x3, Cooperative, No apparent distress, Well developed, Well nourished HEENT: Atraumatic, PERRLA, EOMI, Normocephalic Oral: Moist Mucosa Neck: No JVD Lungs: Normal air movement Abdomen: Non-Distended Extremities: No clubbing, No cyanosis, No edema, No Calf Tenderness, - - The wound on the left lateral calf continues to diminish in size significantly. It is much improved. There is evidence of peripheral epithelialization. The base of the wound is pink and healthy in appearance, with a small amount of bioburden. Dimensions are documented elsewhere. There is no sign of infection or cellulitis. Skin: No rashes Wound Measurements and Assessment WC - Nurse 1 - General Ulcer Measurement Start: 12/23/17 12:07 Freq: Status: Active Protocol: Activity Type Activity Date Activity User E-Sign Co-Sign Detail Recorded Client Recorded Date Recorded By Document 01/06/18 11:32 [email or web address] [id number] 01/06/18 11:40 DL Wound Center Nurse 1 [Ulcer Assessment] #7 LATERAL LLE- POST OP 09/12/17 -Current Size (cm) - Length 14.8 -Current Size (cm) - Width 0.6 WC - Nurse 2 - General Ulcer CM Notes Start: 12/23/17 12:07 Freq: Status: Active Protocol: Activity Type Activity Date Activity User E-Sign Co-Sign Detail Recorded Client Recorded Date Recorded By Document 01/06/18 12:11 JODI [id number] 01/06/18 12:15 JODI Wound Center Nurse 2 [Procedure/Treatment] Neurological: Cranial nerves II-XII grossly intact, Neuro grossly intact Psych/Mental Status: Normal Affect, Appropriate, Alert and oriented to time, place, person, mood and affect Debridement Note Post-Debridement Measurements/Treatment WC - Nurse 2 - General Ulcer CM Notes Start: 12/23/17 12:07 Freq: Status: Active Protocol: Activity Type Activity Date Activity User E-Sign Co-Sign Detail Recorded Client Recorded Date Recorded By Wound Center Nurse 2 #7 LATERAL LLE- POST OP 09/12/17 Laterality: Left - Lateral calf Type of Debridement: Excisional debridement Anesthesia Used: 4% Lidocaine Solution Depth: Down to and including healthy tissue, in the subcutaneous layer Percentage of wound debrided: 100 Instrument Used: 5mm curette Severity: Fat Layer Exposed Amount of bleeding with debridement: Mild Bleeding Controlled with: Compression and gauze Patient tolerated procedure well Assessment/Plan Active Problems Open wound (Chronic) Open wound of left lower leg (Chronic) Traumatic open wound of left lower leg (Chronic) Leg swelling (Chronic) Traumatic wound (Chronic) Open wound of left lower extremity (Chronic) Assessment: This is a 77-year-old male with a traumatic injury to the left lateral calf. The patient appears to be responding well to current measures, which has included the use of collagen hydrogel topically for the last several weeks. Plan: We are to continue collagen hydrogel applied topically on a daily basis. This will be covered by Adaptic and gauze. Patient has shown significant progress. Patient will return in 1 week for reassessment. Intake of a well-balanced and nutritious diet has been advised. Patient has been advised to elevate his lower extremities, to minimize swelling and edema. The patient is not a smoker. Influenza vaccine was not administered today. Patient stands 5 feet 4 inches tall. He weighs 210 pounds. His BMI is 36.0, which places him in a class II category. Weight loss has been recommended, with collaboration with his primary care physician. 01/06/18 1244 <Electronically signed by Oz Cooper MD> Date Oz Cooper MD CC: Signed PROGRESS Observed: 01/01/2018 Status: COMPLETED Source: [place] 1:44 PM [facility] [place] [facility] ID: [id number] Author: Chari Graff Service: (none) Author Type: Physician Type: Progress Notes Filed: 01/04/2018 3:38 PM Note Text: Mr. Yip is a 77 yr old with a history of allergic rhinitis (cats, goats, dust mites, molds, trees, grasses, weeds, ragweed) and severe persistent asthma who presents for a followup visit. Also with a history of pulmonary embolus. His last visit was March 11, 2017. He complains of increased asthma symptoms over the summer. Attributes the increase in symptoms to high humidity. He notes dyspnea on exertion. Intermittent cough wheezing and chest tightness. Using albuterol approximately once per day for acute symptoms. Awakening once a week due to respiratory symptoms. On December 06, 2017, he presented to the emergency room for an asthma exacerbation. CT scan was negative for pulmonary embolus. He was treated with prednisone 60 mg daily for 5 days with some improvement. He notes rhinorrhea in the mornings. Otherwise, his nasal and ocular symptoms are well controlled. Dust mite precautions are in place in the home. He has 1 cat. He tries to keep the cat outdoors. 4 goats outdoors. Interim medical history: He had a significant injury to the left lower leg in the spring requiring 48 sutures. This was complicated by secondary infection requiring surgery. (From March 11, 2017: In early January, he was diagnosed with pulmonary emboli and pulmonary hypertension. He is taking xarelto He also has pulmonary hypertension. He is under the care of Dr. Walden in cardiology and Dr. Jane in pulmonary medicine. At that time, Xolair was discontinued since this medication is associated with a slight increased risk of cerebrovascular events. He complains of intermittent dyspnea. He will shortness of breath after walking 50-60 yards. Also with intermittent cough. Denies wheezing or chest tightness. Uses albuterol 1-2 times daily. Infrequent nocturnal awakenings due to respiratory symptoms. Denies significant nasal symptoms. Shortly after starting Xarelto, he had epistaxis from the right nostril which was treated with cauterization. Denies subsequent episodes of epistaxis. He continues to use fluticasone nasal spray and Astelin. He takes Prilosec 20 mg daily with good control of his GERD symptoms. EGD completed on April 17, 2015 was grossly normal. Biopsy showed slight chronic gastritis. H. pylori was negative. Dust mite precautions are in place in the home. He has 1 cat. He tries to keep the cat outdoors. 4 goats outdoors. (He began treatment with Xolair on April 12, 2013) (Initial visit on 09/18/2012: This is a consultation requested by Dr. Larios for an allergy and immunology evaluation. My final recommendations will be communicated back to the requesting physician by way of shared medical record or letter to requesting physician via [place] mail. Carissa Yip is a 72 year old male who presents for further evaluation and treatment of asthma. He had asthma as a child. Then, he was asymptomatic as an adult until asthma symptoms recurred in 1984. Symptoms include nonproductive cough, wheezing 5 days per week, occasional chest tightness and nocturnal awakenings due to respiratory symptoms 2-3 nights per week. He complains of intermittent dyspnea with exertion. He uses albuterol nebulized approximately 6 times per week and albuterol HFA inhaler approximately twice per week for acute symptoms. He also is on Advair 115-21 and Singulair. He was on Medrol almost daily for the past 6 months. He discontinued the Medrol one week ago. Prior use of prednisone had adverse affects on his mood. He has had 3 emergency room visits for asthma in the past 3 years. Asthma triggers include temperature changes and strong odors. Influenza vaccine and Pneumovax are up-to-date. He previously worked in a [employer]. Exposures included asbestosis and chlorine. Chest x-ray completed on September 15, 2011, showed hyperinflation and stable pleural based calcifications. CT chest completed on June 03, 2006 showed calcified pleural plaques bilaterally. Stable nonspecific, noncalcified pleural densities. Minimal chronic interstitial pulmonary changes anteriorly in the lingula. No acute infiltrate or pulmonary mass. Evidence of old granulomatous disease. He complains of sneezing in the morning and occasional brief episodes of rhinorrhea. He uses Flonase 2 sprays to each nostril twice daily and Astelin 2 sprays each nostril twice daily with improvement. Also takes the mucinex D as needed. Also with mild itchy and watery eyes. History of macular degeneration. He was briefly on allergy immunotherapy as prescribed by [facility] in the . Most recently, he has been under the care of Dr. Franklin. He has a history of wheezing with use of indomethacin. He has subsequently taken and tolerated Naprosyn. Denies a history of nasal polyposis, nasal trauma and recurrent or chronic sinusitis. He takes pantoprazole 40 mg daily with good control of his GERD symptoms. He occasionally snores at night. Cardiac stress test completed in July, was normal.) REVIEW OF SYSTEMS: Negative for fevers, chills, night sweats and unintentional weight loss. Significant for arthritis involving his wrist and lower back. All other review of systems negative except for those listed above. PAST MEDICAL HISTORY Diagnosis Date - Anxiety state, unspecified - Benign neoplasm of colon - Chronic rhinitis - Colon polyp 10/2014 - Depressive disorder, not elsewhere classified - Diabetes mellitus type 2, controlled, without complications (HCC) 08/25/2017 - Diverticulosis of colon (without mention of hemorrhage) - Esophageal reflux - Family history of malignant neoplasm of gastrointestinal tract - GENERAL OSTEOARTHROSIS 04/08/2008 - Gout 04/01/2011 - HYPERGLYCEMIA 07/19/2005 - HYPERLIPIDEMIA NEC/NOS 07/19/2005 - HYPERTENSION NOS 09/03/2007 - Hypertrophy of prostate without urinary obstruction and other lower urinary tract symptoms (LUTS) - Impaired fasting blood sugar 07/19/2005 - Internal hemorrhoids without mention of complication - IRON DEFIC ANEMIA NEC 07/19/2005 - Macular degeneration (senile) of retina, unspecified - MALIGN NEOPL PROSTATE 05/23/2005 - Other pulmonary embolism without acute cor pulmonale (HCC) 01/27/2017 - Personal history of colonic polyps - 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 - Unspecified asthma(493.90) PAST SURGICAL HISTORY Procedure Laterality Date - APPENDECTOMY 11-02-14 - COLONOS W/REM POLYP SNARE 07/25/05 - COLONOS W/REM POLYP SNARE 01/17/11 - COLONOSCOP W/ OR W/O [facility] SPEC 07/28/14 Colonoscopy - COLONOSCOP W/ OR W/O [facility] SPEC 12-20-15 - COLONOSCOPY - DIAGNOSTIC 03/02/2003 - DEBRIDEMENT WOUND 21+ SQ CM Left 09/12/2017 Left leg abcess s/pt traumatic wound. - EGD W/O OR W/BRUSH/WASH 04/17/15 EGD - KNEE SCOPE,DIAGNOSTIC 1998 LEFT - LAP COLECTMY W/ILEUM/ILEOCOL 11-02-14 WITH INCISIONAL HERNIA REPAIR - LAPAROSCOPIC HEMICOLECTOMY 11-02-14 - REMV PROSTATE,PERINEAL,RADICAL 11/28/2003 - REPAIR ROTATOR CUFF,ACUTE 03/04/2002 Rotator cuff repair Left - REPAIR UMBILICAL BAKARI,5+Y/O,REDUC 03/01/1996 Hernia repair, umbilical >5yr - REVISE MEDIAN N/CARPAL TUNNEL SURG Bilateral 1993 Carpal tunnel decomp; , - TOTAL HIP REPLACEMENT 07/26/2013 Hip replacement, total, LEFT, Dr. Rojas - TOTAL KNEE REPLACEMENT 06/2008 left knee FAMILY HISTORY: Allergic rhinitis:no. Asthma: yes: mom. Eczema: no. Cystic fibrosis: no. Immunodeficiency: no. SOCIAL HISTORY: Marital status: Children: adult children Occupation: retired Smoking: life-long non-smoker ENVIRONMENTAL HISTORY: Lives in a house Age of home: 40 years Heating: fuel oil Woodburning fireplace in the home: yes Air conditioning: Central air Basement: Dry basement Bob: [id number] carpeting in bedrooms, Hardwood floor in living room, dining room Dust mite controls: Dust mite controls are already in place. Pets in the home: 2 cats- trying to keep outdoors Outdoor animals: 4 goats Tobacco smoke: No exposure in the home. Physical Exam: GENERAL APPEARANCE: alert, in no acute distress, well-hydrated,overweight HEENT: NCAT. EYES: conjunctiva and sclera normal. EARS: External ears normal. Canals clear. TM's normal. NOSE/SINUS: mild edema of the nasal mucosa with scant clear secretions bilaterally. THROAT: no erythema or exudate NECK:neck supple, no adenopathy HEART:RRR with normal S1 and S2 ,no murmurs, no gallops, no rubs LUNGS: Scattered rhonchi. Faint expiratory wheezing. No rales ABDOMEN: soft, nontender/nondistended EXTREMITIES:Extremities normal, No deformities, No skin discoloration and No edema SKIN: Left lower leg wrapped in isaak bandage Spirometry on March 07, 2016: Normal EAMON on April 04, 2015: Normal Exhaled nitric oxide on March 07, 2016: 35 PPB (intermediate) Exhaled nitric oxide on April 04, 2015: 15 PPB (low/normal) ASSESSMENT/PLAN: 1.) Severe persistent asthma with acute exacerbation Take prednisone 40 mg daily for 5 days Continue Advair 230?21 2 puffs twice daily. Use with spacer and rinse mouth out after use. Continue Spiriva one inhalation once daily, Singulair 10 mg at bedtime,and Xolair every 4 weeks. Continue albuterol HFA inhaler 2 puffs or DuoNeb every 4-6 hours as needed. Continue to receive an annual Influenza vaccine Continue regular follow-up in pulmonary medicine. 2.) Allergic rhinitis: Aggressive environmental controls. Recommended he start [id number] Claritin 10 mg or Emily 180 mg once daily as needed. Continue fluticasone nasal spray 2 sprays each nostril once daily and Astelin 2 sprays each nostril twice daily. 3.) GERD: Continue Omeprazole 20 mg daily. 4.) Discussed medication dosage, usage, side effects including side effects of systemic corticosteroids, and goals of treatment in detail. 5. ) Follow-up in 6 mos to 1 yr- patient will return sooner should new symptoms or problems arise. Chari Graff MD CNOV Observed: 01/01/2018 Status: COMPLETED Source: [place] 9:00 AM [facility] REPOSITORY Office Visit (ALLMED) CARISSA YIP ([id number]) 1940 M Date Time Provider Department 01/01/18 9:00 AM CHARI GRAFF During your visit today, we recorded the following information about you: Pulse Respiration Blood pressure Weight 91/minute 18/minute 135/76 92.1 kg Marylu Bautista RN 01/01/2018 9:29 AM Signed Patient uses albuterol twice daily. Feels like breathing is not the best over past year. Chari Graff MD 01/01/2018 9:38 AM Signed Take auuv-vsx-udizrno loratidine (claritin) 10 mg or fexofenadine (emily) 180 mg once a day as needed for itching, sneezing or runny nose. Chari Graff MD 01/04/2018 3:38 PM Signed Mr. Yip is a 77 yr old with a history of allergic rhinitis (cats, goats, dust mites, molds, trees, grasses, weeds, ragweed) and severe persistent asthma who presents for a followup visit. Also with a history of pulmonary embolus. His last visit was March 11, 2017. He complains of increased asthma symptoms over the summer. Attributes the increase in symptoms to high humidity. He notes dyspnea on exertion. Intermittent cough wheezing and chest tightness. Using albuterol approximately once per day for acute symptoms. Awakening once a week due to respiratory symptoms. On December 06, 2017, he presented to the emergency room for an asthma exacerbation. CT scan was negative for pulmonary embolus. He was treated with prednisone 60 mg daily for 5 days with some improvement. He notes rhinorrhea in the mornings. Otherwise, his nasal and ocular symptoms are well controlled. Dust mite precautions are in place in the home. He has 1 cat. He tries to keep the cat outdoors. 4 goats outdoors. Interim medical history: He had a significant injury to the left lower leg in the spring requiring 48 sutures. This was complicated by secondary infection requiring surgery. (From March 11, 2017: In early January, he was diagnosed with pulmonary emboli and pulmonary hypertension. He is taking xarelto He also has pulmonary hypertension. He is under the care of Dr. Walden in cardiology and Dr. Jane in pulmonary medicine. At that time, Xolair was discontinued since this medication is associated with a slight increased risk of cerebrovascular events. He complains of intermittent dyspnea. He will shortness of breath after walking 50-60 yards. Also with intermittent cough. Denies wheezing or chest tightness. Uses albuterol 1-2 times daily. Infrequent nocturnal awakenings due to respiratory symptoms. Denies significant nasal symptoms. Shortly after starting Xarelto, he had epistaxis from the right nostril which was treated with cauterization. Denies subsequent episodes of epistaxis. He continues to use fluticasone nasal spray and Astelin. He takes Prilosec 20 mg daily with good control of his GERD symptoms. EGD completed on April 17, 2015 was grossly normal. Biopsy showed slight chronic gastritis. H. pylori was negative. Dust mite precautions are in place in the home. He has 1 cat. He tries to keep the cat outdoors. 4 goats outdoors. (He began treatment with Xolair on April 12, 2013) (Initial visit on 09/18/2012: This is a consultation requested by Dr. Larios for an allergy and immunology evaluation. My final recommendations will be communicated back to the requesting physician by way of shared medical record or letter to requesting physician via US mail. Carissa Yip is a 72 year old male who presents for further evaluation and treatment of asthma. He had asthma as a child. Then, he was asymptomatic as an adult until asthma symptoms recurred in 1984. Symptoms include nonproductive cough, wheezing 5 days per week, occasional chest tightness and nocturnal awakenings due to respiratory symptoms 2-3 nights per week. He complains of intermittent dyspnea with exertion. He uses albuterol nebulized approximately 6 times per week and albuterol HFA inhaler approximately twice per week for acute symptoms. He also is on Advair 115-21 and Singulair. He was on Medrol almost daily for the past 6 months. He discontinued the Medrol one week ago. Prior use of prednisone had adverse affects on his mood. He has had 3 emergency room visits for asthma in the past 3 years. Asthma triggers include temperature changes and strong odors. Influenza vaccine and Pneumovax are up-to-date. He previously worked in a [employer]. Exposures included asbestosis and chlorine. Chest x-ray completed on September 15, 2011, showed hyperinflation and stable pleural based calcifications. CT chest completed on June 03, 2006 showed calcified pleural plaques bilaterally. Stable nonspecific, noncalcified pleural densities. Minimal chronic interstitial pulmonary changes anteriorly in the lingula. No acute infiltrate or pulmonary mass. Evidence of old granulomatous disease. He complains of sneezing in the morning and occasional brief episodes of rhinorrhea. He uses Flonase 2 sprays to each nostril twice daily and Astelin 2 sprays each nostril twice daily with improvement. Also takes the mucinex D as needed. Also with mild itchy and watery eyes. History of macular degeneration. He was briefly on allergy immunotherapy as prescribed by [facility] in the . Most recently, he has been under the care of Dr. Franklin. He has a history of wheezing with use of indomethacin. He has subsequently taken and tolerated Naprosyn. Denies a history of nasal polyposis, nasal trauma and recurrent or chronic sinusitis. He takes pantoprazole 40 mg daily with good control of his GERD symptoms. He occasionally snores at night. Cardiac stress test completed in July, was normal.) REVIEW OF SYSTEMS: Negative for fevers, chills, night sweats and unintentional weight loss. Significant for arthritis involving his wrist and lower back. All other review of systems negative except for those listed above. PAST MEDICAL HISTORY Diagnosis Date - Anxiety state, unspecified - Benign neoplasm of colon - Chronic rhinitis - Colon polyp 10/2014 - Depressive disorder, not elsewhere classified - Diabetes mellitus type 2, controlled, without complications (HCC) 08/25/2017 - Diverticulosis of colon (without mention of hemorrhage) - Esophageal reflux - Family history of malignant neoplasm of gastrointestinal tract - GENERAL OSTEOARTHROSIS 04/08/2008 - Gout 04/01/2011 - HYPERGLYCEMIA 07/19/2005 - HYPERLIPIDEMIA NEC/NOS 07/19/2005 - HYPERTENSION NOS 09/03/2007 - Hypertrophy of prostate without urinary obstruction and other lower urinary tract symptoms (LUTS) - Impaired fasting blood sugar 07/19/2005 - Internal hemorrhoids without mention of complication - IRON DEFIC ANEMIA NEC 07/19/2005 - Macular degeneration (senile) of retina, unspecified - MALIGN NEOPL PROSTATE 05/23/2005 - Other pulmonary embolism without acute cor pulmonale (HCC) 01/27/2017 - Personal history of colonic polyps - 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 - Unspecified asthma(493.90) PAST SURGICAL HISTORY Procedure Laterality Date - APPENDECTOMY 11-02-14 - COLONOS W/REM POLYP SNARE 07/25/05 - COLONOS W/REM POLYP SNARE 01/17/11 - COLONOSCOP W/ OR W/O [facility] SPEC 07/28/14 Colonoscopy - COLONOSCOP W/ OR W/O [facility] SPEC 12-20-15 - COLONOSCOPY - DIAGNOSTIC 03/02/2003 - DEBRIDEMENT WOUND 21+ SQ CM Left 09/12/2017 Left leg abcess s/pt traumatic wound. - EGD W/O OR W/BRUSH/WASH 04/17/15 EGD - KNEE SCOPE,DIAGNOSTIC 1998 LEFT - LAP COLECTMY W/ILEUM/ILEOCOL 11-02-14 WITH INCISIONAL HERNIA REPAIR - LAPAROSCOPIC HEMICOLECTOMY 11-02-14 - REMV PROSTATE,PERINEAL,RADICAL 11/28/2003 - REPAIR ROTATOR CUFF,ACUTE 03/04/2002 Rotator cuff repair Left - REPAIR UMBILICAL BAKARI,5+Y/O,REDUC 03/01/1996 Hernia repair, umbilical >5yr - REVISE MEDIAN N/CARPAL TUNNEL SURG Bilateral 1993 Carpal tunnel decomp; , - TOTAL HIP REPLACEMENT 07/26/2013 Hip replacement, total, LEFT, Dr. Rojas - TOTAL KNEE REPLACEMENT 06/2008 left knee FAMILY HISTORY: Allergic rhinitis:no. Asthma: yes: mom. Eczema: no. Cystic fibrosis: no. Immunodeficiency: no. SOCIAL HISTORY: Marital status: Children: adult children Occupation: retired Smoking: life-long non-smoker ENVIRONMENTAL HISTORY: Lives in a house Age of home: 40 years Heating: fuel oil Woodburning fireplace in the home: yes Air conditioning: Central air Basement: Dry basement Bob: Kgxq-un-htfm carpeting in bedrooms, Hardwood floor in living room, dining room Dust mite controls: Dust mite controls are already in place. Pets in the home: 2 cats- trying to keep outdoors Outdoor animals: 4 goats Tobacco smoke: No exposure in the home. Physical Exam: GENERAL APPEARANCE: alert, in no acute distress, well-hydrated,overweight HEENT: NCAT. EYES: conjunctiva and sclera normal. EARS: External ears normal. Canals clear. TM's normal. NOSE/SINUS: mild edema of the nasal mucosa with scant clear secretions bilaterally. THROAT: no erythema or exudate NECK:neck supple, no adenopathy HEART:RRR with normal S1 and S2 ,no murmurs, no gallops, no rubs LUNGS: Scattered rhonchi. Faint expiratory wheezing. No rales ABDOMEN: soft, nontender/nondistended EXTREMITIES:Extremities normal, No deformities, No skin discoloration and No edema SKIN: Left lower leg wrapped in isaak bandage Spirometry on March 07, 2016: Normal EAMON on April 04, 2015: Normal Exhaled nitric oxide on March 07, 2016: 35 PPB (intermediate) Exhaled nitric oxide on April 04, 2015: 15 PPB (low/normal) ASSESSMENT/PLAN: 1.) Severe persistent asthma with acute exacerbation Take prednisone 40 mg daily for 5 days Continue Advair 230?21 2 puffs twice daily. Use with spacer and rinse mouth out after use. Continue Spiriva one inhalation once daily, Singulair 10 mg at bedtime,and Xolair every 4 weeks. Continue albuterol HFA inhaler 2 puffs or DuoNeb every 4-6 hours as needed. Continue to receive an annual Influenza vaccine Continue regular follow-up in pulmonary medicine. 2.) Allergic rhinitis: Aggressive environmental controls. Recommended he start ulvq-yoi-mrisjxw Claritin 10 mg or Emily 180 mg once daily as needed. Continue fluticasone nasal spray 2 sprays each nostril once daily and Astelin 2 sprays each nostril twice daily. 3.) GERD: Continue Omeprazole 20 mg daily. 4.) Discussed medication dosage, usage, side effects including side effects of systemic corticosteroids, and goals of treatment in detail. 5. ) Follow-up in 6 mos to 1 yr- patient will return sooner should new symptoms or problems arise. Chari Graff MD Referring Provider: SELF [[id number]] Allergies As of Date: 01/01/2018 Noted Allergy Reaction INDOCIN (INDOMETHACIN SODIUM) 04/01/2011 14 - Other: See Comments Comments: Wheezing, can take naprosyn PERCOCET (OXYCODONE-ACETAMINOPHEN)01/08/2005 9 - Itching SEASONAL ALLERGIES 11/12/2012 14 - Other: See Comments Comments: Cat, Goats, Dust mites, molds, trees, grasses, weed, ragweed Date Reviewed: 01/01/2018 Reviewed by: Chari Graff - Fully Assessed Reason for Visit: Established Patient [175] Cmt: allergies/asthma f/u Primary Visit Diagnosis:Severe persistent asthma with acute exacerbation [J45.51] Other Visit Diagnoses:Allergic rhinitis due to cats [J30.81] Allergic rhinitis due to dust mite [J30.89] Allergic rhinitis due to fungal spores, unspecified seasonality [J30.89] Seasonal allergic rhinitis due to pollen [J30.1] Order(s):azelastine (ASTELIN,ASTEPRO) 0.1% nasal sprayinstill 2 sprays into each nostril twice a dayDisp: 1 BottleRfl: 11 fluticasone (FLONASE) 50 mcg/actuation nasal sprayinstill 2 sprays into each nostril twice a dayDisp: 1 BottleRfl: 11 predniSONE 10 mg tablet pack4 tablets once a day for 5 daysDisp: 20 tabletRfl: 0 Prescriptions as of 01/01/2018 Sig: ASPIRIN 81 MG TABLET,DELAYED * Take 81 mg by mouth once christiano* AZELASTINE 137 MCG (0.1 %) NA* instill 2 sprays into each no* FLUTICASONE 50 MCG/ACTUATION * instill 2 sprays into each no* ALBUTEROL SULFATE 2.5 MG/3 ML* Use 3 mL via nebulizer every * SPIRIVA WITH HANDIHALER 18 MC* inhale the contents of one ca* SERTRALINE 100 MG TABLET Take 1.5 tablets by mouth onc* MONTELUKAST 10 MG TABLET Take 1 tablet by mouth daily * NITROGLYCERIN 0.4 MG SUBLINGU* Dissolve 1 tablet under the t* GUAIFENESIN ER 600 MG TABLET,* Take 1 tablet by mouth twice * ADVAIR HFA 230 MCG-21 MCG/ACT* take 2 inhalations by mouth t* OMEPRAZOLE 20 MG CAPSULE,ALEX* Take 1 capsule by mouth daily* LISINOPRIL 20 MG TABLET Take 1 tablet by mouth once d* ATORVASTATIN 10 MG TABLET take 1 tablet by mouth at bed* VENTOLIN HFA 90 MCG/ACTUATION* inhale 2 puffs every 4 hours * NYSTATIN-TRIAMCINOLONE 100,00* Apply 1 application to affect* IPRATROPIUM-ALBUTEROL 0.5 MG-* Inhale 3 mL as instructed fou* ALBUTEROL SULFATE HFA 90 MCG/* Inhale 2 Puffs as instructed. POLYETHYLENE GLYCOL 3350 17 G* Take 17 g by mouth once daily* IPRATROPIUM BROMIDE 0.02 % SO* 500 mcg (one ampule) nebulize* PRESERVISION AREDS 7,160 UNIT* Take one(1) tablet two(2) link* PREDNISONE 10 MG TABLETS IN A* 4 tablets once a day for 5 da* LEFLUNOMIDE 10 MG TABLET Take 10 mg by mouth once christiano* EPINEPHRINE 0.3 MG/0.3 ML INJ* Inject 0.3 mL intramuscularly* Patient not taking: Reported on 01/01/2018 Problem List As Of Date 01/01/2018 Noted Resolved Asthma [J45.909] 08/25/2017 CHRONIC RHINITIS [J31.0] BPH without obstruction/lower urinary tract sym* ANXIETY STATE NOS [F41.1] 08/05/2014 Depression with anxiety [F41.8] Diverticulosis of colon (without mention of hem* 10/06/2012 ESOPHAGEAL REFLUX [K21.9] Internal hemorrhoids without mention of complic* 08/30/2010 Malignant neoplasm of prostate (HCC) [C61] INVALID FOR*08/05/2014 MACULAR DEGENERATION NOS [H35.30] Other specified iron deficiency anemias [D50.8] INVALID FOR*08/30/2010 Diabetes mellitus type 2, controlled, without c*INVALID FOR* Hyperlipidemia [E78.5] INVALID FOR* Personal history of colonic polyps [Z86.010] INVALID FOR*09/30/2011 More... FAMILY HX COLON CANCER [Z80.0] INVALID FOR*08/25/2017 PULMONARY NODULES [J98.4] INVALID FOR*10/06/2012 More... 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] INVALID FOR* Essential hypertension [I10] INVALID FOR* Generalized osteoarthritis of multiple sites [M*INVALID FOR* Benign neoplasm of rectum and anal canal [D12.8*INVALID FOR*10/06/2012 Benign neoplasm of colon [D12.6] INVALID FOR* Gout [M10.9] INVALID FOR* Venous insufficiency of leg [I87.2] INVALID FOR* Iron deficiency anemia due to chronic blood los*INVALID FOR* Inflammatory polyarthropathy of multiple sites *INVALID FOR* Unsteady gait [R26.81] INVALID FOR* Uncomplicated severe persistent asthma [J45.50] INVALID FOR* Other pulmonary embolism without acute cor pulm*INVALID FOR*12/29/2017 Pulmonary hypertension (HCC) [I27.20] INVALID FOR* Memory disturbance [R41.3] INVALID FOR* Obesity, Class I, BMI 30-34.9 E66.9 [E66.9] INVALID FOR* Open wound of left lower extremity [S81.802A] INVALID FOR* Prothrombin [id number] mutation (HCC) [D68.52] INVALID FOR*12/29/2017 Allergic rhinitis due to cats [J30.81] INVALID FOR* Allergic rhinitis due to dust mite [J30.89] INVALID FOR* Allergic rhinitis due to fungal spores [J30.89] INVALID FOR* Seasonal allergic rhinitis due to pollen [J30.1]INVALID FOR* Other instructions from your clinician: Take sefe-oln-mdkprjq loratidine (claritin) 10 mg or fexofenadine (emily) 180 mg once a day as needed for itching, sneezing or runny nose. Visit Notes: >> Marylu Bautista RN Stella Jan 01, 2018 9:11 AM Status: Signed Patient uses albuterol twice daily. Feels like breathing is not the best over past year. Prescriptions ordered this encounter Disp Refills Start End AZELASTINE 137 MCG (0.1 %) NASAL SPR* 1 Carlos Alberto* 11 01/01/2018 Sig: instill 2 sprays into each nostril twice a day FLUTICASONE 50 MCG/ACTUATION NASAL S* 1 Carlos Alberto* 11 01/01/2018 Sig: instill 2 sprays into each nostril twice a day PREDNISONE 10 MG TABLETS IN A DOSE P* 20 t* 0 01/01/2018 Si tablets once a day for 5 days Medications Discontinued During This Encounter azelastine (ASTELIN,ASTEPRO) 0.1% na* 1 Carlos Alberto* 1 12/17/2017 01/01/2018 Sig: instill 2 sprays into each nostril twice a day Disc: Reason for discontinue is not on file. fluticasone (FLONASE) 50 mcg/actuati* 1 Carlos Alberto* 4 10/07/2017 01/01/2018 Sig: instill 2 sprays into each nostril twice a day Disc: Reason for discontinue is not on file. Disposition: Return in about 1 year (around 01/01/2019). Follow-up and Disposition History Recorded Questionnaire: ASTHMA CONTROL TEST Last 4 weeks, your asthma limited your activity at work or home: -> 3 SOME OF THE TIME Past 4 weeks, how often have you had shortness of breath? -> 2 ONCE A DAY Past 4 weeks: Asthma symptoms woke you at night or earlier than usual? -> 3 ONCE A WEEK Past 4 weeks: How often did you use rescue inhaler or nebulizer med? -> 2 ONE OR TWO TIMES PER DAY Rate your Asthma Control during the past 4 weeks: -> 2 POORLY CONTROLLED ACT TOTAL SCORE: -> 12 Encounter Status:Closed by CHARI GRAFF MD on 01/04/18 WOUND CTR HISTORY Observed: 12/30/2017 Status: F Source: [facility] 12:07 PM [facility] [place] REPOSITORY [facility] [address] [place] [address] Wound Ctr History AND Physical 12/30/17 1203 MR#: [id number] Acct: [id number] Name: CARISSA YIP Rep #: [id number] : [id number] 77 From: Oz Cooper MD PCP: Lambert Larios MD Status: REG RCR Y Location: WC (1) Obesity Status: Chronic Current Visit: No Code(s): E66.9 - Obesity, unspecified (2) Open wound Status: Chronic Current Visit: Yes Code(s): T14.8 - Other injury of unspecified body region (3) Open wound of left lower leg Status: Chronic Current Visit: Yes Qualifiers: Encounter type: subsequent encounter Code(s): S81.802A - Unspecified open wound, left lower leg, initial encounter (4) Traumatic open wound of left lower leg Status: Chronic Current Visit: Yes Qualifiers: Encounter type: subsequent encounter Code(s): S81.802A - Unspecified open wound, left lower leg, initial encounter (5) Leg swelling Status: Chronic Current Visit: Yes Code(s): M79.89 - Other specified soft tissue disorders (6) Traumatic wound Status: Chronic Current Visit: Yes (7) Open wound of left lower extremity Status: Chronic Current Visit: Yes Qualifiers: Encounter type: subsequent encounter Code(s): S81.802A - Unspecified open wound, left lower leg, initial encounter (8) History of pulmonary embolism Status: Chronic Current Visit: No Code(s): Z86.711 - Personal history of pulmonary embolism (9) Iron deficiency anemia Status: Chronic Current Visit: No Code(s): D50.9 - Iron deficiency anemia, unspecified (10) Pulmonary nodule Status: Chronic Current Visit: No Code(s): R91.1 - Solitary pulmonary nodule (11) HLD (hyperlipidemia) Status: Chronic Current Visit: No Code(s): E78.5 - Hyperlipidemia, unspecified (12) Diverticulosis Status: Chronic Current Visit: No Code(s): K57.90 - Diverticulosis of intestine, part unspecified, without perforation or abscess without bleeding (13) Asthma Status: Chronic Current Visit: No Code(s): J45.909 - Unspecified asthma, uncomplicated (14) Hypertension Status: Chronic Current Visit: No Qualifiers: Code(s): I10 - Essential (primary) hypertension (15) Osteoarthritis Status: Chronic Current Visit: No (16) History of prostate cancer Status: Chronic Current Visit: No Code(s): Z85.46 - Personal history of malignant neoplasm of prostate (17) Allergic rhinitis Status: Chronic Current Visit: No Code(s): J30.9 - Allergic rhinitis, unspecified (18) Rheumatoid arthritis Status: Chronic Current Visit: No Code(s): M06.9 - Rheumatoid arthritis, unspecified (19) Pleural plaque Status: Chronic Current Visit: No Code(s): J92.9 - Pleural plaque without asbestos (20) Macular degeneration Status: Chronic Current Visit: No Code(s): H35.30 - Unspecified macular degeneration (21) GERD (gastroesophageal reflux disease) Status: Chronic Current Visit: No Code(s): K21.9 - Gastro- esophageal reflux disease without esophagitis History of Present Illness Date of Service: 12/30/17 Chief Complaint: Recent traumatic injury of the left lower extremity with residual open wound History of Wound: This is a 77-year-old male who was in his normal state of health until September 06, 2017, at which time he sustained an injury to the left lateral calf, the result of a shovel which impaled into his left leg. The patient was rushed to the emergency department on that date, where he was treated by means of wound closure using sutures. Four days later, he had developed a cellulitis, and was admitted to the hospital for treatment. Patient was treated with antibiotics, and subsequently underwent wide surgical debridement of necrotic tissue by Dr. Homero Chin on September 12, 2017. Patient was discharged on September 16, 2017. He was discharged on Cipro 500 mg p.o. twice daily and Augmentin 875 mg p.o. twice daily. At the time of discharge, arrangements were made for the wound VAC to be the means of treatment, which has been changed every several days by home health nursing personnel. The patient had been on Xarelto and treatment for a pulmonary embolism which was diagnosed in January 2017. As result of his injury, the Xarelto has been discontinued. A noninvasive lower extremity arterial study performed in August 2016 revealed no evidence of arterial occlusive disease in the lower extremities. Therefore, there is no reason to believe there is since of any significant arterial occlusive disease. The patient has done well, showing progress with the use of the wound VAC. The patient developed cellulitis in his left lower extremity associated with fever. He was hospitalized at [facility] for approximately 4 days. He was treated initially with intravenous antibiotics consisting of Zosyn, and was subsequently discharged with a prescription for Augmentin, which has been completed. The wound VAC was discontinued, and alternative means have been implemented since that time. Silver Viola is currently being applied topically every other day. Past Medical History Past Medical History: Chronic Problems Obesity (Chronic) Open wound (Chronic) Open wound of left lower leg (Chronic) Traumatic open wound of left lower leg (Chronic) Leg swelling (Chronic) Traumatic wound (Chronic) Open wound of left lower extremity (Chronic) History of pulmonary embolism (Chronic) Iron deficiency anemia (Chronic) Pulmonary nodule (Chronic) HLD (hyperlipidemia) (Chronic) Diverticulosis (Chronic) Asthma (Chronic) Hypertension (Chronic) Osteoarthritis (Chronic) History of prostate cancer (Chronic) Allergic rhinitis (Chronic) Rheumatoid arthritis (Chronic) Pleural plaque (Chronic) Macular degeneration (Chronic) GERD (gastroesophageal reflux disease) (Chronic) Surgical History: - - Umbilical hernia repair, appendectomy, bilateral carpal tunnel surgery, Prostatectomy, Cataract surgery, L lens implant, L knee surgery followed by LTKR, L shoulder surgery, left total hip replacement. Allergies/Adverse Reactions: Allergies indomethacin [From Indocin] Allergy (Verified 12/06/17 11:12) Itching indomethacin sodium [From Indocin] Allergy (Verified 12/06/17 11:12) Itching oxycodone HCl [From Percocet] Allergy (Verified 12/06/17 11:12) Itching Home Medications: Ambulatory Orders Medication Instructions Recorded Albuterol Sulfate [Proventil Hfa] 2 puff IH BID 07/13/13 Azelastine HCl [Astelin] 2 spray NASAL BID 07/13/13 - Family History Sibling Diabetes, Renal Disease, - - Patient's father at the age of 76 with history of colon cancer myocardial infarction. Patient's mother at age of 86 with a history of breast cancer. Maternal Cancer Paternal Cancer Smoking Status: Never smoker Tobacco Use: Non-smoker Review of Systems Constitutional: Denies: Chills, Fever, Weight Change Eyes: Denies: Pain, Vision Change HEENT: Denies: Difficulty Hearing, Difficulty Swallowing, Sinus Congestion Cardiovascular: Denies: Chest Pain, Palpitations Respiratory: Denies: Cough, Shortness of Breath Gastrointestinal: Denies: Diarrhea, Nausea, Vomiting Genitourinary: Denies: Dysuria, Hematuria Endocrine: Denies: Heat/ Cold Intolerance, Polydipsia, Polyuria Hematologic/ Lymphatic: Denies: Easy Bruising, Easy Bleeding - Physical Exam Vital Signs Temp Pulse Resp BP 97.3 F L 86 18 125/74 H 12/30/17 10:35 12/30/17 10:35 12/30/17 10:35 12/30/17 10:35 General: Alert, Oriented x3, Cooperative, No apparent distress, Well developed, Well nourished HEENT: Atraumatic, PERRLA, EOMI, Normocephalic Oral: Moist Mucosa Neck: No JVD Lungs: Normal air movement Abdomen: Non-Distended Extremities: No clubbing, No cyanosis, No edema, No Calf Tenderness, - - There is no significant swelling or edema in the patient's lower extremities. The traumatic wound on the left lateral calf continues to decrease in size. It is diminished in size significantly since the patient's last visit. There is evidence of peripheral epithelialization. The base of the ulceration is generally pink and healthy, with a small amount of bioburden. Dimensions are documented elsewhere. There is no sign of infection or cellulitis. Skin: No rashes Wound Measurements and Assessment - Nurse 1 - General Ulcer Measurement Start: 12/23/17 12:07 Freq: Status: Active Protocol: Activity Type Activity Date Activity User E-Sign Co-Sign Detail Recorded Client Recorded Date Recorded By Document 12/30/17 10:35 [id number] 12/30/17 10:43 [facility] - Nurse 2 - General Ulcer CM Notes Start: 12/23/17 12:07 Freq: Status: Active Protocol: Activity Type Activity Date Activity User E-Sign Co-Sign Detail Recorded Client Recorded Date Recorded By Document 12/30/17 11:48 JS [id number] 12/30/17 11:59 Wound Center Nurse 2 [Procedure/Treatment] #7 LATERAL LLE- POST OP 09/12/17 Musculoskeletal: No Muscle Wasting Neurological: Cranial nerves II-XII grossly intact, Neuro grossly intact Psych/Mental Status: Normal Affect, Appropriate, Alert and oriented to time, place, person, mood and affect Debridement Note Post-Debridement Measurements/Treatment WC - Nurse 2 - General Ulcer CM Notes Start: 12/23/17 12:07 Freq: Status: Active Protocol: Activity Type Activity Date Activity User E-Sign Co-Sign Detail Wound Center Nurse 2 #7 LATERAL LLE- POST OP 09/12/17 -Time 12:29 11:48 -Correct Patient Yes Yes Laterality: Left - Lateral calf Type of Debridement: Excisional debridement Anesthesia Used: 4% Lidocaine Solution Depth: Down to and including healthy tissue, in the subcutaneous layer Percentage of wound debrided: 100 Instrument Used: 5mm curette, Forceps, - - Scissors Severity: Fat Layer Exposed Amount of bleeding with debridement: Mild Bleeding Controlled with: Compression and gauze Patient tolerated procedure well Assessment/Plan Active Problems Open wound (Chronic) Open wound of left lower leg (Chronic) Traumatic open wound of left lower leg (Chronic) Leg swelling (Chronic) Traumatic wound (Chronic) Open wound of left lower extremity (Chronic) Assessment: This is a 77-year-old male with a traumatic injury to the left lateral calf. The patient appears to be responding well to current measures, which has included the use of Silver Viola topically for the last several weeks. Plan: We are to transition now to the use of collagen hydrogel applied topically on a daily basis. This will be covered by Adaptic and gauze. Patient has shown significant progress. Patient will return in 1 week for reassessment. Intake of a well-balanced and nutritious diet has been advised. Patient has been advised to elevate his lower extremities, to minimize swelling and edema. The patient is not a smoker. Influenza vaccine was not administered today. Patient stands 5 feet 4 inches tall. He weighs 210 pounds. His BMI is 36.0, which places him in a class II category. Weight loss has been recommended, with collaboration with his primary care physician. 12/30/17 [id number] <Electronically signed by Oz Cooper MD> Date Oz Cooper MD CC: Signed PROGRESS Observed: 12/29/2017 Status: COMPLETED Source: [place] 11:44 PM [facility] REPOSITORY HNO ID: [id number] Author: Lambert Larios Service: (none) Author Type: Physician Type: Progress Notes Filed: 12/30/2017 12:01 AM Note Text: This note was created using Intimate Bridge 2 Conception[employer]. Subjective Carissa Yip is a 77 year old male here for follow up. His left leg wound was nearly healed. 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 His diabetes mellitus was controlled. Eye exam was done. 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 Tract Symptoms Depression With Anxiety Esophageal Reflux Macular Degeneration (Senile) of Retina, Unspecified Diabetes Mellitus Type 2, Controlled, Without Complications (Hcc) Hyperlipidemia Rosacea Essential Hypertension Generalized Osteoarthritis of Multiple Sites Benign Neoplasm of Colon Gout Venous Insufficiency of Leg Iron Deficiency Anemia Due to Chronic Blood Loss Inflammatory Polyarthropathy of Multiple Sites (Hcc) Unsteady Gait Uncomplicated Severe Persistent Asthma Pulmonary Hypertension (Hcc) Memory Disturbance Obesity, Class I, BMI 30-34.9 E66.9 Open Wound of Left Lower Extremity Current Outpatient Prescriptions: azelastine (ASTELIN,ASTEPRO) 0.1% nasal spray instill 2 sprays into each nostril twice a day albuterol (PROVENTIL) 2.5 mg /3 mL (0.083 %) nebulizer solution Use 3 mL via nebulizer every 4 hours as needed. Diagnosis: severe persistent asthma J45.50 SPIRIVA WITH HANDIHALER 18 mcg inhalation capsule inhale the contents of one capsule in the handihaler once daily fluticasone (FLONASE) 50 mcg/actuation nasal spray instill 2 sprays into each nostril twice a day sertraline (ZOLOFT) 100 mg tablet Take 1.5 tablets by mouth once daily. montelukast (SINGULAIR) 10 mg tablet Take 1 tablet by mouth daily at bedtime. nitroglycerin sublingual (NITROQUICK) 0.4 mg SL tablet Dissolve 1 tablet under the tongue every 5 minutes as needed for Chest Pain. guaiFENesin (MUCINEX) 600 mg 12 hr tablet Take 1 tablet by mouth twice daily. ADVAIR HFA 230-21 mcg/actuation inhaler take 2 inhalations by mouth twice a day Rinse mouth after use omeprazole (PRILOSEC) 20 mg capsule Take 1 capsule by mouth daily before breakfast. 1/2 hr before meal. lisinopril (ZESTRIL, PRINIVIL) 20 mg tablet Take 1 tablet by mouth once daily. atorvastatin (LIPITOR) 10 mg tablet take 1 tablet by mouth at bedtime VENTOLIN HFA 90 mcg/actuation inhaler inhale 2 puffs every 4 hours if needed nystatin-triamcinolone (MYCOLOG II) cream Apply 1 application to affected area twice daily as needed. Genital rash. ipratropium-albuterol (DUONEB) 0.5 mg-3 mg(2.5 mg base)/3 mL nebu Inhale 3 mL as instructed four times daily as needed. by nebulizer over 5 to 15 minutes. EPINEPHrine (EPIPEN) 0.3 mg/0.3 mL auto-injector Inject 0.3 mL intramuscularly as needed. albuterol HFA (PROVENTIL HFA) 90 mcg/actuation inhaler Inhale 2 Puffs as instructed. polyethylene glycol 3350 (MIRALAX, GLYCOLAX) 17 gram/dose powder Take 17 g by mouth once daily. Take one (1) capful in 8oz of liquid each day. ipratropium (ATROVENT) 0.02 % nebulizer solution 500 mcg (one ampule) nebulized four times a day as needed. Vitamin A-Vit C-Vit E-Zinc-Cu (OCUVITE PRESERVISION) ORAL Tab Take one(1) tablet two(2) times daily. leflunomide (ARAVA) 10 mg tablet Take 10 mg by mouth once daily. No current facility-administered medications for this visit. Review of Systems Constitutional: Negative. Respiratory: Positive for shortness of breath. Negative for cough, chest tightness and wheezing. Cardiovascular: Negative. Objective BP 118/70 (BP Site: Right Arm, BP Position: Sitting, BP Cuff Size: Regular Adult) Pulse 96 Temp 36.8 ?C (98.3 ?F) (Left Tympanic) Resp 20 Wt 92 kg (202 lb 12.8 oz) BMI 32.98 kg/m? Physical Exam Constitutional: No distress. Neck: No JVD present. Cardiovascular: Normal heart sounds. Exam reveals no gallop. No murmur heard. Pulmonary/Chest: He has no wheezes. He has no rales. Musculoskeletal: He exhibits edema. Left leg wrapped. Assessment and Plan 1. Controlled type 2 diabetes mellitus without complication, without long-term current use of insulin (HCC) - ICD9: 250.00, ICD10: E11.9 (primary diagnosis) Controlled. - Continue current medications 2. Essential hypertension - ICD9: 401.9, ICD10: I10 - good control - Continue current medication(s) 3. Depression with anxiety - ICD9: 300.4, ICD10: F41.8 Controlled. 4. Open wound of left lower extremity, subsequent encounter - ICD9: V58.89, 891.0, ICD10: S81.802D Per Wound Center. Lambert Larios MD CNOV Observed: 12/29/2017 Status: COMPLETED Source: [place] 11:20 AM [facility] REPOSITORY Office Visit (INTMWS) CARISSA YIP ([id number]) 1940 M Date Time Provider Department 12/29/17 11:20 AM LAMBERT LARIOS INTMWS During your visit today, we recorded the following information about you: Temperature Pulse Respiration Blood pressure 98.3 degrees 96/minute 20/minute 118/70 Weight 92 kg Lambert Larios MD 12/30/2017 12:01 AM Signed This note was created using NoteWriter. Subjective Carissa Yip is a 77 year old male here for follow up. His left leg wound was nearly healed. 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 His diabetes mellitus was controlled. Eye exam was done. 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 Tract Symptoms Depression With Anxiety Esophageal Reflux Macular Degeneration (Senile) of Retina, Unspecified Diabetes Mellitus Type 2, Controlled, Without Complications ([facility]) Hyperlipidemia Rosacea Essential Hypertension Generalized Osteoarthritis of Multiple Sites Benign Neoplasm of Colon Gout Venous Insufficiency of Leg Iron Deficiency Anemia Due to Chronic Blood Loss Inflammatory Polyarthropathy of Multiple Sites (Hcc) Unsteady Gait Uncomplicated Severe Persistent Asthma Pulmonary Hypertension (Hcc) Memory Disturbance Obesity, Class I, BMI 30-34.9 E66.9 Open Wound of Left Lower Extremity Current Outpatient Prescriptions: azelastine (ASTELIN,ASTEPRO) 0.1% nasal spray instill 2 sprays into each nostril twice a day albuterol (PROVENTIL) 2.5 mg /3 mL (0.083 %) nebulizer solution Use 3 mL via nebulizer every 4 hours as needed. Diagnosis: severe persistent asthma J45.50 SPIRIVA WITH HANDIHALER 18 mcg inhalation capsule inhale the contents of one capsule in the handihaler once daily fluticasone (FLONASE) 50 mcg/actuation nasal spray instill 2 sprays into each nostril twice a day sertraline (ZOLOFT) 100 mg tablet Take 1.5 tablets by mouth once daily. montelukast (SINGULAIR) 10 mg tablet Take 1 tablet by mouth daily at bedtime. nitroglycerin sublingual (NITROQUICK) 0.4 mg SL tablet Dissolve 1 tablet under the tongue every 5 minutes as needed for Chest Pain. guaiFENesin (MUCINEX) 600 mg 12 hr tablet Take 1 tablet by mouth twice daily. ADVAIR HFA 230-21 mcg/actuation inhaler take 2 inhalations by mouth twice a day Rinse mouth after use omeprazole (PRILOSEC) 20 mg capsule Take 1 capsule by mouth daily before breakfast. 1/2 hr before meal. lisinopril (ZESTRIL, PRINIVIL) 20 mg tablet Take 1 tablet by mouth once daily. atorvastatin (LIPITOR) 10 mg tablet take 1 tablet by mouth at bedtime VENTOLIN HFA 90 mcg/actuation inhaler inhale 2 puffs every 4 hours if needed nystatin-triamcinolone (MYCOLOG II) cream Apply 1 application to affected area twice daily as needed. Genital rash. ipratropium-albuterol (DUONEB) 0.5 mg-3 mg(2.5 mg base)/3 mL nebu Inhale 3 mL as instructed four times daily as needed. by nebulizer over 5 to 15 minutes. EPINEPHrine (EPIPEN) 0.3 mg/0.3 mL auto-injector Inject 0.3 mL intramuscularly as needed. albuterol HFA (PROVENTIL HFA) 90 mcg/actuation inhaler Inhale 2 Puffs as instructed. polyethylene glycol 3350 (MIRALAX, GLYCOLAX) 17 gram/dose powder Take 17 g by mouth once daily. Take one (1) capful in 8oz of liquid each day. ipratropium (ATROVENT) 0.02 % nebulizer solution 500 mcg (one ampule) nebulized four times a day as needed. Vitamin A-Vit C-Vit E-Zinc-Cu (OCUVITE PRESERVISION) ORAL Tab Take one(1) tablet two(2) times daily. leflunomide (ARAVA) 10 mg tablet Take 10 mg by mouth once daily. No current facility-administered medications for this visit. Review of Systems Constitutional: Negative. Respiratory: Positive for shortness of breath. Negative for cough, chest tightness and wheezing. Cardiovascular: Negative. Objective BP 118/70 (BP Site: Right Arm, BP Position: Sitting, BP Cuff Size: Regular Adult) Pulse 96 Temp 36.8 ?C (98.3 ?F) (Left Tympanic) Resp 20 Wt 92 kg (202 lb 12.8 oz) BMI 32.98 kg/m? Physical Exam Constitutional: No distress. Neck: No JVD present. Cardiovascular: Normal heart sounds. Exam reveals no gallop. No murmur heard. Pulmonary/Chest: He has no wheezes. He has no rales. Musculoskeletal: He exhibits edema. Left leg wrapped. Assessment and Plan 1. Controlled type 2 diabetes mellitus without complication, without long-term current use of insulin (HCC) - ICD9: 250.00, ICD10: E11.9 (primary diagnosis) Controlled. - Continue current medications 2. Essential hypertension - ICD9: 401.9, ICD10: I10 - good control - Continue current medication(s) 3. Depression with anxiety - ICD9: 300.4, ICD10: F41.8 Controlled. 4. Open wound of left lower extremity, subsequent encounter - ICD9: V58.89, 891.0, ICD10: S81.802D Per Wound Center. Lambert Larios MD Referring Provider: LAMBERT LARIOS [[id number]] Allergies As of Date: 12/29/2017 Noted Allergy Reaction INDOCIN (INDOMETHACIN SODIUM) 04/01/2011 14 - Other: See Comments Comments: Wheezing, can take naprosyn PERCOCET (OXYCODONE-ACETAMINOPHEN)01/08/2005 9 - Itching SEASONAL ALLERGIES 11/12/2012 14 - Other: See Comments Comments: Cat, Goats, Dust mites, molds, trees, grasses, weed, ragweed Date Reviewed: 12/29/2017 Reviewed by: Sudha Kilgore LPN - Fully Assessed Reason for Visit: 4 month follow-up [Other] Primary Visit Diagnosis:Controlled type 2 diabetes mellitus without complication, without long-term current use of insulin (HCC) [E11.9] Other Visit Diagnoses:Essential hypertension [I10] Depression with anxiety [F41.8] Open wound of left lower extremity, subsequent encounter [S80.915Y] Prescriptions as of 12/29/2017 Sig: AZELASTINE 137 MCG (0.1 %) NA* instill 2 sprays into each no* ALBUTEROL SULFATE 2.5 MG/3 ML* Use 3 mL via nebulizer every * SPIRIVA WITH HANDIHALER 18 MC* inhale the contents of one ca* FLUTICASONE 50 MCG/ACTUATION * instill 2 sprays into each no* SERTRALINE 100 MG TABLET Take 1.5 tablets by mouth onc* MONTELUKAST 10 MG TABLET Take 1 tablet by mouth daily * NITROGLYCERIN 0.4 MG SUBLINGU* Dissolve 1 tablet under the t* GUAIFENESIN ER 600 MG TABLET,* Take 1 tablet by mouth twice * ADVAIR HFA 230 MCG-21 MCG/ACT* take 2 inhalations by mouth t* OMEPRAZOLE 20 MG CAPSULE,LAEX* Take 1 capsule by mouth daily* LISINOPRIL 20 MG TABLET Take 1 tablet by mouth once d* ATORVASTATIN 10 MG TABLET take 1 tablet by mouth at bed* VENTOLIN HFA 90 MCG/ACTUATION* inhale 2 puffs every 4 hours * NYSTATIN-TRIAMCINOLONE 100,00* Apply 1 application to affect* IPRATROPIUM-ALBUTEROL 0.5 MG-* Inhale 3 mL as instructed fou* EPINEPHRINE 0.3 MG/0.3 ML INJ* Inject 0.3 mL intramuscularly* ALBUTEROL SULFATE HFA 90 MCG/* Inhale 2 Puffs as instructed. POLYETHYLENE GLYCOL 3350 17 G* Take 17 g by mouth once daily* IPRATROPIUM BROMIDE 0.02 % SO* 500 mcg (one ampule) nebulize* PRESERVISION AREDS 7,160 UNIT* Take one(1) tablet two(2) link* LEFLUNOMIDE 10 MG TABLET Take 10 mg by mouth once christiano* Medication notes this encounter POLYETHYLENE GLYCOL 3350 17 GRAM/DOSE ORAL POWDER >> Sudha Kilgore LPN 12/29/2017 11:53 AM >> SUDHA KILGORE LPN FriDec 29, 2017 11:53 AM PRN Problem List As Of Date 12/29/2017 Noted Resolved Asthma [J45.909] 08/25/2017 CHRONIC RHINITIS [J31.0] BPH without obstruction/lower urinary tract sym* ANXIETY STATE NOS [F41.1] 08/05/2014 Depression with anxiety [F41.8] Diverticulosis of colon (without mention of hem* 10/06/2012 ESOPHAGEAL REFLUX [K21.9] Internal hemorrhoids without mention of complic* 08/30/2010 Malignant neoplasm of prostate (HCC) [C61] INVALID FOR*08/05/2014 MACULAR DEGENERATION NOS [H35.30] Other specified iron deficiency anemias [D50.8] INVALID FOR*08/30/2010 Diabetes mellitus type 2, controlled, without c*INVALID FOR* Hyperlipidemia [E78.5] INVALID FOR* Personal history of colonic polyps [Z86.010] INVALID FOR*09/30/2011 More... FAMILY HX COLON CANCER [Z80.0] INVALID FOR*08/25/2017 PULMONARY NODULES [J98.4] INVALID FOR*10/06/2012 More... 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] INVALID FOR* Essential hypertension [I10] INVALID FOR* Generalized osteoarthritis of multiple sites [M*INVALID FOR* Benign neoplasm of rectum and anal canal [D12.8*INVALID FOR*10/06/2012 Benign neoplasm of colon [D12.6] INVALID FOR* Gout [M10.9] INVALID FOR* Venous insufficiency of leg [I87.2] INVALID FOR* Iron deficiency anemia due to chronic blood los*INVALID FOR* Inflammatory polyarthropathy of multiple sites *INVALID FOR* Unsteady gait [R26.81] INVALID FOR* Uncomplicated severe persistent asthma [J45.50] INVALID FOR* Other pulmonary embolism without acute cor pulm*INVALID FOR*12/29/2017 Pulmonary hypertension (HCC) [I27.20] INVALID FOR* Memory disturbance [R41.3] INVALID FOR* Obesity, Class I, BMI 30-34.9 E66.9 [E66.9] INVALID FOR* Open wound of left lower extremity [S81.802A] INVALID FOR* 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 Patient taking differently: Take 325 mg by mouth twice daily. Take one(1) tablet two(2) times daily. Disc: Reason for discontinue is not on file. COMPOUNDED PRESCRIPTION 0 08/23/2016 12/29/2017 Class: OTC Sig: Polypodium Leucotomos extract (Daily Defense). Take 2 capsules once a day. 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 Patient not taking: Reported on 11/18/2017 Disc: Reason for discontinue is not on file. Disposition: Return in about 6 months (around 07/01/2018). Follow-up and Disposition History Recorded Encounter Status:Closed by LAMBERT LARIOS MD on 12/30/17 WOUND CTR HISTORY Observed: 12/23/2017 Status: F Source: [facility] 12:39 PM [facility] REPOSITORY [facility] [address] [place] [id number] Wound [address] History AND Physical 12/23/17 1235 MR#: [id number] Acct: [id number] Name: CARISSA YIP Rep #: [id number] : [id number] 77 From: Oz Cooper MD PCP: Lambert Larios MD Status: REG RCR Y Location: WC (1) Obesity Status: Chronic Current Visit: No Code(s): E66.9 - Obesity, unspecified (2) Open wound Status: Chronic Current Visit: Yes Code(s): T14.8 - Other injury of unspecified body region (3) Open wound of left lower leg Status: Chronic Current Visit: Yes Qualifiers: Encounter type: subsequent encounter Code(s): S81.802A - Unspecified open wound, left lower leg, initial encounter (4) Traumatic open wound of left lower leg Status: Chronic Current Visit: Yes Qualifiers: Encounter type: subsequent encounter Code(s): S81.802A - Unspecified open wound, left lower leg, initial encounter (5) Leg swelling Status: Chronic Current Visit: Yes Code(s): M79.89 - Other specified soft tissue disorders (6) Traumatic wound Status: Chronic Current Visit: Yes (7) Open wound of left lower extremity Status: Chronic Current Visit: Yes Qualifiers: Encounter type: subsequent encounter Code(s): S81.802A - Unspecified open wound, left lower leg, initial encounter (8) Cellulitis of left leg Status: Resolved Current Visit: No Code(s): L03.116 - Cellulitis of left lower limb (9) History of pulmonary embolism Status: Chronic Current Visit: No Code(s): Z86.711 - Personal history of pulmonary embolism (10) 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 Status: Resolved Current Visit: No Code(s): L97.929 - Non-pressure chronic ulcer of unspecified part of left lower leg with unspecified severity; L08.9 - Local infection of the skin and subcutaneous tissue, unspecified (11) Iron deficiency anemia Status: Chronic Current Visit: No Code(s): D50.9 - Iron deficiency anemia, unspecified (12) Pulmonary nodule Status: Chronic Current Visit: No Code(s): R91.1 - Solitary pulmonary nodule (13) HLD (hyperlipidemia) Status: Chronic Current Visit: No Code(s): E78.5 - Hyperlipidemia, unspecified (14) Diverticulosis Status: Chronic Current Visit: No Code(s): K57.90 - Diverticulosis of intestine, part unspecified, without perforation or abscess without bleeding (15) Asthma Status: Chronic Current Visit: No Code(s): J45.909 - Unspecified asthma, uncomplicated (16) Hypertension Status: Chronic Current Visit: No Qualifiers: Code(s): I10 - Essential (primary) hypertension (17) Osteoarthritis Status: Chronic Current Visit: No (18) Penetrating injury right leg Status: Resolved Current Visit: No (19) History of prostate cancer Status: Chronic Current Visit: No Code(s): Z85.46 - Personal history of malignant neoplasm of prostate (20) Allergic rhinitis Status: Chronic Current Visit: No Code(s): J30.9 - Allergic rhinitis, unspecified (21) Rheumatoid arthritis Status: Chronic Current Visit: No Code(s): M06.9 - Rheumatoid arthritis, unspecified (22) Pleural plaque Status: Chronic Current Visit: No Code(s): J92.9 - Pleural plaque without asbestos (23) Macular degeneration Status: Chronic Current Visit: No Code(s): H35.30 - Unspecified macular degeneration (24) GERD (gastroesophageal reflux disease) Status: Chronic Current Visit: No Code(s): K21.9 - Gastro- esophageal reflux disease without esophagitis History of Present Illness Date of Service: 12/23/17 Chief Complaint: Recent traumatic injury of the left lower extremity with residual open wound History of Wound: This is a 77-year-old male who was in his normal state of health until September 06, 2017, at which time he sustained an injury to the left lateral calf, the result of a shovel which impaled into his left leg. The patient was rushed to the emergency department on that date, where he was treated by means of wound closure using sutures. Four days later, he had developed a cellulitis, and was admitted to the hospital for treatment. Patient was treated with antibiotics, and subsequently underwent wide surgical debridement of necrotic tissue by Dr. Homero Chin on September 12, 2017. Patient was discharged on September 16, 2017. He was discharged on Cipro 500 mg p.o. twice daily and Augmentin 875 mg p.o. twice daily. At the time of discharge, arrangements were made for the wound VAC to be the means of treatment, which has been changed every several days by home health nursing personnel. The patient had been on Xarelto and treatment for a pulmonary embolism which was diagnosed in January 2017. As result of his injury, the Xarelto has been discontinued. A noninvasive lower extremity arterial study performed in August 2016 revealed no evidence of arterial occlusive disease in the lower extremities. Therefore, there is no reason to believe there is since of any significant arterial occlusive disease. The patient has done well, showing progress with the use of the wound VAC. The patient developed cellulitis in his left lower extremity associated with fever. He was hospitalized at [facility] for approximately 4 days. He was treated initially with intravenous antibiotics consisting of Zosyn, and was subsequently discharged with a prescription for Augmentin, which has been completed. The wound VAC was discontinued, and alternative means have been implemented since that time. Silver Viola is currently being applied topically every other day. Past Medical History Past Medical History: Chronic Problems Obesity (Chronic) Open wound (Chronic) Open wound of left lower leg (Chronic) Traumatic open wound of left lower leg (Chronic) Leg swelling (Chronic) Traumatic wound (Chronic) Open wound of left lower extremity (Chronic) History of pulmonary embolism (Chronic) Iron deficiency anemia (Chronic) Pulmonary nodule (Chronic) HLD (hyperlipidemia) (Chronic) Diverticulosis (Chronic) Asthma (Chronic) Hypertension (Chronic) Osteoarthritis (Chronic) History of prostate cancer (Chronic) Allergic rhinitis (Chronic) Rheumatoid arthritis (Chronic) Pleural plaque (Chronic) Macular degeneration (Chronic) GERD (gastroesophageal reflux disease) (Chronic) Surgical History: - - Umbilical hernia repair, appendectomy, bilateral carpal tunnel surgery, Prostatectomy, Cataract surgery, L lens implant, L knee surgery followed by LTKR, L shoulder surgery, left total hip replacement. Allergies/Adverse Reactions: Allergies indomethacin [From Indocin] Allergy (Verified 12/06/17 11:12) Itching indomethacin sodium [From Indocin] Allergy (Verified 12/06/17 11:12) Itching oxycodone HCl [From Percocet] Allergy (Verified 12/06/17 11:12) Itching Home Medications: Ambulatory Orders Medication Instructions Recorded Albuterol Sulfate [Proventil Hfa] 2 puff IH BID 07/13/13 Azelastine HCl [Astelin] 2 spray NASAL BID 07/13/13 - Family History Sibling Diabetes, Renal Disease, - - Patient's father at the age of 76 with history of colon cancer myocardial infarction. Patient's mother at age of 86 with a history of breast cancer. Maternal Cancer Paternal Cancer Smoking Status: Never smoker Tobacco Use: Non-smoker Review of Systems Constitutional: Denies: Chills, Fever, Weight Change Eyes: Denies: Pain, Vision Change HEENT: Denies: Difficulty Hearing, Difficulty Swallowing, Sinus Congestion Cardiovascular: Denies: Chest Pain, Palpitations Respiratory: Denies: Cough, Shortness of Breath Gastrointestinal: Denies: Diarrhea, Nausea, Vomiting Genitourinary: Denies: Dysuria, Hematuria Endocrine: Denies: Heat/ Cold Intolerance, Polydipsia, Polyuria Hematologic/ Lymphatic: Denies: Easy Bruising, Easy Bleeding - Physical Exam Vital Signs Temp Pulse Resp BP 98.0 F 115 H 18 135/61 H 12/23/17 12:07 12/23/17 12:07 12/23/17 12:07 12/23/17 12:07 General: Alert, Oriented x3, Cooperative, No apparent distress, Well developed, Well nourished HEENT: Atraumatic, PERRLA, EOMI, Normocephalic Oral: Moist Mucosa Neck: No JVD Lungs: Normal air movement Abdomen: Non-Distended Extremities: No clubbing, No cyanosis, No Calf Tenderness, - - No significant swelling or edema is noted in the left lower extremity. The traumatic wound on the left lateral calf continues to improve. It is smaller in size. There is evidence of peripheral epithelialization. There is now a skin bridge in the midportion of the wound. The base of the wound is pink and healthy in appearance, with active granulation tissue. There is only a small amount of bioburden present. Dimensions are documented elsewhere. Skin: No rashes Wound Measurements and Assessment WC - Nurse 1 - General Ulcer Measurement Start: 12/23/17 12:07 Freq: Status: Active Protocol: Activity Type Activity Date Activity User E-Sign Co-Sign Detail Recorded Client Recorded Date Recorded By Document 12/23/17 12:07 HAMZAH [id number] 12/23/17 12:18 HAMZAH W[facility] Center Nurse 1 [Ulcer Assessment] #7 LATERAL LLE- POST OP 09/12/17 WC - Nurse 2 - General Ulcer CM Notes Start: 12/23/17 12:07 Freq: Status: Active Protocol: Activity Type Activity Date Activity User E-Sign Co-Sign Detail Recorded Client Recorded Date Recorded By Document 12/23/17 12:28 JODI [id number] 12/23/17 12:30 JS Wound Center Nurse 2 Musculoskeletal: No Muscle Wasting Neurological: Cranial nerves II-XII grossly intact, Neuro grossly intact Psych/Mental Status: Normal Affect, Appropriate, Alert and oriented to time, place, person, mood and affect Debridement Note Post-Debridement Measurements/Treatment WC - Nurse 2 - General Ulcer CM Notes Start: 12/23/17 12:07 Freq: Status: Active Protocol: Activity Type Activity Date Activity User E-Sign Co-Sign Detail Recorded Client Recorded Date Recorded By Document 12/23/17 12:28 [id number] 12/23/17 12:30 JODI Wound Center Nurse 2 #7 LATERAL LLE- POST OP 09/12/17 -Time 12:29 -Correct Patient Yes -Correct Side, Site, Position Yes Laterality: Left - Lateral calf Type of Debridement: Excisional debridement Anesthesia Used: 4% Lidocaine Solution Depth: Down to and including healthy tissue, in the subcutaneous layer Percentage of wound debrided: 100 Instrument Used: 5mm curette Severity: Fat Layer Exposed Amount of bleeding with debridement: Mild Bleeding Controlled with: Compression and gauze Patient tolerated procedure well Assessment/Plan Active Problems Open wound (Chronic) Open wound of left lower leg (Chronic) Traumatic open wound of left lower leg (Chronic) Leg swelling (Chronic) Traumatic wound (Chronic) Open wound of left lower extremity (Chronic) Assessment: This is a 77-year-old male with a traumatic injury to the left lateral calf. The patient appears to be responding well to current measures, which has included the use of Silver Viola topically for the last several weeks. Plan: We will continue the use of Silver Viola. This will be applied every other day. Patient has shown significant progress. Patient will return in 1 week for reassessment. Intake of a well-balanced and nutritious diet has been advised. Patient has been advised to elevate his lower extremities, to minimize swelling and edema. The patient is not a smoker. Influenza vaccine was not administered today. Patient stands 5 feet 4 inches tall. He weighs 210 pounds. His BMI is 36.0, which places him in a class II category. Weight loss has been recommended, with collaboration with his primary care physician. 12/23/17 1239 <Electronically signed by Oz Cooper MD> Date Oz Cooper MD CC: Signed CNOV Observed: 12/19/2017 Status: COMPLETED Source: [place] 1:30 PM [facility] REPOSITORY Office Visit (PULMWS) CARISSA YIP ([id number]) 1940 M Date Time Provider Department 12/19/17 1:30 PM LENI MCBRIDE During your visit today, we recorded the following information about you: Pulse Respiration Blood pressure Weight 93/minute 16/minute 138/78 92.5 kg Height 1.67 m Leni Mcbride PA-C 12/19/2017 1:[address] [facility] Respiratory [place], 12/19/17: INTERVAL HISTORY: The patient is here for follow up of asthma; the last Pulmonary Clinic visit was 09/18/17. Patient was evaluated in [place] ED 12/06/17 for wheezing and shortness of breath. CTA negative for PE. Patient treated with breathing treatment and placed on Prednisone. Today, he states he is breathing better, but is not back to baseline. The patient admits to compliance with prescribed maintenance Rx: Advair 2 inhalations twice daily and Spiriva 1 capsule daily. 2 nebulized treatments every couple days. Once daily rescue bronchodilator use in the evening prior to walking the dog. No nocturnal awakenings per month with asthma symptoms. Improved daily cough. Clear sputum. No hemoptysis. No wheezing. Exertional dyspnea stable. No disruption in taste or voice associated with use of inhaled corticosteroid. No tremor, palpitations, or muscle cramping associated with bronchodilator inhalation. PMH: Updated with patient today. FAMH: Updated with patient today. SOCH: Updated with patient today. ROS: General: Generally feels good. Appetite good. Weight stable. Eyes, Ears, nose, throat: No post nasal drip, rhinorrhea, purulent nasal discharge, epistaxis. No hoarseness. Vision stable. Cardiac: No angina, edema, orthopnea. GI: No heartburn, dysphagia. No nausea, vomiting, diarrhea. Uro/PUMP ERECTOR: No dysuria, hesitancy, nocturia. Musculoskeletal: No pain. Neuro: No headache, focal weakness, tremor. Skin: Leg wound, still following at the Wound Center. Otherwise negative. Immunization History Administered Date(s) Administered Influenza Seasonal - High Dose - Age 65+ 01/25/2014 01/20/2016 01/30/2017 Influenza Seasonal Inj Age 3+ 02/01/2015 Influenza Vaccine, Split-Non Spec 03/17/2006 03/17/2007 03/23/2008 02/11/2009 03/08/2010 02/16/2011 02/21/2012 01/21/2013 Pneumococcal-13 Vac Conjugate 02/22/2015 10/10/2015 Pneumovax 06/04/2000 09/17/2010 TD Adult 11/10/2006 Tdap (Age 7+) 09/05/2017 Tetanus Diphtheria Booster (Age >7) Pres Free 02/22/2016 Zostavax 04/01/2011 Allergies were verified and updated, and medications were reconciled with the patient at this visit. PHYSICAL EXAMINATION: BP 138/78 Pulse 93 Resp 16 Ht 5' 5.75 (1.67m) Wt 204 lb (92.5kg) SpO2 98% BMI 33.18 kg/(m2). Gen: No acute distress. Cooperative with examination. ENT: Nares clear. Oral hygeine good. Pharynx clear. Resp: No stridor, accessory respiratory muscle use. No crackles, wheezes. CV: Regular rythm. Heart tones normal. Radial pulses normal. Abd: Non distended. MSK: No kyphoscoliosis. Ext: Warm and well perfused. No cyanosis. Skin: No rash, eczema, urticaria. Neuro: Mental status normal. No tremor. DATA REVIEW: DATE: 12/19/17 02/28/17 03/07/16 04/04/15 FVC 2.51 (74 % pred) 2.33 (65 % pred) 3.02 (90 % pred) 3.07 (90 % pred) FEV1 1.81 (76 % pred) 1.69 (66 % pred) 2.28 (96 % pred) 2.29 (95 % pred) FEV1/FVC 0.72 0.73 0.76 0.75 ? Exhaled nitric oxide (Daniel), 12/19/17: 24 02/28/17: 23 (normal < 25). NM Lung Quant Perfusion Scan, 10/08/17 IMPRESSION: QUANTITATIVE PULMONARY PERFUSION MEASUREMENTS, INDICATED. Improved perfusion bilaterally. ?Persistent small subsegmental defects noted at the left lung base posteriorly. ?Dramatically improved perfusion left upper lung. ?Improved perfusion right upper lung and right lower lung however segmental defect persists superior segment right lower lobe RESULT: Conventional perfusion imaging is compared with the prior study from 01/27/2017 Improved perfusion is noted in the right upper lobe. ?This is significant compared with the prior study. ?Small subsegmental perfusion defects remain in the posterior aspect of the right upper lobe and posterior left lower lobe. ?Improved perfusion is noted in the left upper lobe without perfusion defect seen currently. ?Persistent segmental defect seen superior segment right lower lobe. The estimated contribution from total pulmonary perfusion is as follows: Right upper lung zone: 12.7%. Right middle lung zone: 23.3% Right lower lung zone: 3.5%. Total pulmonary perfusion to the right lun.5%. Left upper lung zone: 15.5%. Middle lung zone: 33.6% Left lower lung zone: 11.4%. Total pulmonary perfusion to the left lun.5%. Labs, 12/06/17 Cardiolipin Ab, IgG <9 0 - 9 GPL Final [facility] Cardiolipin Ab, IgM 26 (H) 0 - 11 MPL Final [facility] Cardiolipin Ab, IgA <9 0 - 11 APL Final [facility] IMPRESSION and RECOMMENDATIONS: Asthma, severe persistent, well controlled. 1. I reviewed the pathophysiology of asthma, NIH guidelines for evaluation and management, and mechanisms of action and side effects of medical therapy (ICS, bronchodilators) with the patient. 2. Continue Advair 2 inhalations twice daily and Spiriva 1 inhalation in the morning. Rinse mouth afterwards. 3. Try using your nebulizer in the morning prior to using your inhalers. 4. Continue Albuterol HFA inhaler, 2 inhalations 10?15 minutes prior to activities associated with shortness of breath, and as needed for rescue relief of shortness of breath or wheezing, up to 4 times daily. 5. Recommend annual influenza vaccine, ideally between March 02 and April 02. 6. Follow up with Dr. Graff as scheduled. 7. Re-assess in 6 months, sooner if needed.. History of PE. 1. Patient was evaluated by Dr. Montalvo. 2. IgM Anticardiolipin antibody remained equivocal, therefore, based on Dr. Montalvo's office notes, patient does not have an acquired hypercoagulable state, and there is no indication for for long-term anticoagulation therapy. Pulmonary HTN. 1. Last echocardiogram 05/02/17 showed no evidence of recurrent pulmonary hypertension or right ventricular strain. Right ventricular systolic pressure 41 mmHg. Previous echo in 01/28/17, was 65 mmHg indicating moderately severe pulmonary HTN. 2. Follow up with Dr. Verma as scheduled. I addressed the questions of the patient, and he expressed understanding and acceptance of my answers. Leni Mcbride PA-C [facility] Respiratory [place] [facility] [address] [place] [address] Melissa Kumar CASSIE 12/19/2017 1:14 PM Signed Intake information documented in the prior visit with Char Sandhu, CREDIT REVIEW MANAGER today. Leni Mcbride PA-C 12/19/2017 1:48 PM Signed Asthma, severe persistent, well controlled. 1. I reviewed the pathophysiology of asthma, NIH guidelines for evaluation and management, and mechanisms of action and side effects of medical therapy (ICS, bronchodilators) with the patient. 2. Continue Advair 2 inhalations twice daily and Spiriva 1 inhalation in the morning. Rinse mouth afterwards. 3. Try using your nebulizer in the morning prior to using your inhalers. 4. Continue Albuterol HFA inhaler, 2 inhalations 10?15 minutes prior to activities associated with shortness of breath, and as needed for rescue relief of shortness of breath or wheezing, up to 4 times daily. 5. Recommend annual influenza vaccine, ideally between March 02 and April 02. 6. Follow up with Dr. Graff as scheduled. 7. Re-assess in 6 months, sooner if needed.. History of PE. 1. Patient was evaluated by Dr. Montalvo. 2. IgM Anticardiolipin antibody remained equivocal, therefore, based on Dr. Montalvo's office notes, patient does not have an acquired hypercoagulable state, and there is no indication for for long-term anticoagulation therapy. Pulmonary HTN. 1. Last echocardiogram 05/02/17 showed no evidence of recurrent pulmonary hypertension or right ventricular strain. Right ventricular systolic pressure 41 mmHg. Previous echo in 01/28/17, was 65 mmHg indicating moderately severe pulmonary HTN. 2. Follow up with Dr. Verma as scheduled. Referring Provider: LENI MCBRIDE [[id number]] Allergies As of Date: 12/19/2017 Noted Allergy Reaction INDOCIN (INDOMETHACIN SODIUM) 04/01/2011 14 - Other: See Comments Comments: Wheezing, can take naprosyn PERCOCET (OXYCODONE-ACETAMINOPHEN)01/08/2005 9 - Itching SEASONAL ALLERGIES 11/12/2012 14 - Other: See Comments Comments: Cat, Goats, Dust mites, molds, trees, grasses, weed, ragweed Date Reviewed: 12/19/2017 Reviewed by: Leni Mcbride - Fully Assessed Reason for Visit: Established Patient [175] Cmt: asthma Primary Visit Diagnosis:Asthma, late onset, severe persistent, uncomplicated [J45.50] Other Visit Diagnoses:Pulmonary HTN ([facility]) [I27.20] History of pulmonary embolism [Z86.711] Prescriptions as of 12/19/2017 Sig: AZELASTINE 137 MCG (0.1 %) NA* instill 2 sprays into each no* ALBUTEROL SULFATE 2.5 MG/3 ML* Use 3 mL via nebulizer every * SPIRIVA WITH HANDIHALER 18 MC* inhale the contents of one ca* FLUTICASONE 50 MCG/ACTUATION * instill 2 sprays into each no* SERTRALINE 100 MG TABLET Take 1.5 tablets by mouth onc* MONTELUKAST 10 MG TABLET Take 1 tablet by mouth daily * NITROGLYCERIN 0.4 MG SUBLINGU* Dissolve 1 tablet under the t* GUAIFENESIN ER 600 MG TABLET,* Take 1 tablet by mouth twice * ADVAIR HFA 230 MCG-21 MCG/ACT* take 2 inhalations by mouth t* OMEPRAZOLE 20 MG CAPSULE,ALEX* Take 1 capsule by mouth daily* LISINOPRIL 20 MG TABLET Take 1 tablet by mouth once d* ATORVASTATIN 10 MG TABLET take 1 tablet by mouth at bed* LEFLUNOMIDE 10 MG TABLET Take 10 mg by mouth once christiano* VENTOLIN HFA 90 MCG/ACTUATION* inhale 2 puffs every 4 hours * NYSTATIN-TRIAMCINOLONE 100,00* Apply 1 application to affect* IPRATROPIUM-ALBUTEROL 0.5 MG-* Inhale 3 mL as instructed fou* EPINEPHRINE 0.3 MG/0.3 ML INJ* Inject 0.3 mL intramuscularly* ALBUTEROL SULFATE HFA 90 MCG/* Inhale 2 Puffs as instructed. 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 FAMILY HX COLON CANCER [Z80.0] INVALID FOR*08/25/2017 PULMONARY NODULES [J98.4] INVALID FOR*10/06/2012 More... 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] INVALID FOR* Essential hypertension [I10] INVALID FOR* Generalized osteoarthritis of multiple sites [M*INVALID FOR* Benign neoplasm of rectum and anal canal [D12.8*INVALID FOR*10/06/2012 Benign neoplasm of colon [D12.6] INVALID FOR* Gout [M10.9] INVALID FOR* Venous insufficiency of leg [I87.2] INVALID FOR* Iron deficiency anemia due to chronic blood los*INVALID FOR* Inflammatory polyarthropathy of multiple sites *INVALID FOR* Unsteady gait [R26.81] INVALID FOR* Uncomplicated severe persistent asthma [J45.50] INVALID FOR* Other pulmonary embolism without acute cor pulm*INVALID FOR* Pulmonary hypertension (HCC) [I27.20] INVALID FOR* Memory disturbance [R41.3] INVALID FOR* Obesity, Class I, BMI 30-34.9 E66.9 [E66.9] INVALID FOR* Open wound of left lower extremity [S81.802A] INVALID FOR* 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 1. I reviewed the pathophysiology of asthma, NIH guidelines for evaluation and management, and mechanisms of action and side effects of medical therapy (ICS, bronchodilators) with the patient. 2. Continue Advair 2 inhalations twice daily and Spiriva 1 inhalation in the morning. Rinse mouth afterwards. 3. Try using your nebulizer in the morning prior to using your inhalers. 4. Continue Albuterol HFA inhaler, 2 inhalations 10?15 minutes prior to activities associated with shortness of breath, and as needed for rescue relief of shortness of breath or wheezing, up to 4 times daily. 5. Recommend annual influenza vaccine, ideally between March 02 and April 02. 6. Follow up with Dr. Graff as scheduled. 7. Re-assess in 6 months, sooner if needed.. History of PE. 1. Patient was evaluated by Dr. Montalvo. 2. IgM Anticardiolipin antibody remained equivocal, therefore, based on Dr. Montalvo's office notes, patient does not have an acquired hypercoagulable state, and there is no indication for for long-term anticoagulation therapy. Pulmonary HTN. 1. Last echocardiogram 05/02/17 showed no evidence of recurrent pulmonary hypertension or right ventricular strain. Right ventricular systolic pressure 41 mmHg. Previous echo in 01/28/17, was 65 mmHg indicating moderately severe pulmonary HTN. 2. Follow up with Dr. Verma as scheduled. Visit Notes: >> Melissa José MATTHEWS FriDec 19, 2017 1:13 PM Status: Signed Intake information documented in the prior visit with Char Sandhu, STEVEN today. Medications Discontinued During This Encounter amoxicillin-clavulanic acid (AUGMENT* 11/10/2017 12/19/2017 Class: Historical Med Route: ORAL Sig: Take 2 tablets by mouth twice daily. Disc: Course of therapy completed furosemide (LASIX) 40 mg tablet 7 ta* 0 09/25/2017 12/19/2017 Route: ORAL Sig: Take 1 tablet by mouth once daily for 7 days. Disc: Reason for discontinue is not on file. Disposition: Return in about 6 months (around 06/21/2018). Follow-up and Disposition History Recorded Encounter Status:Closed by LENI MCBRIDE on 12/19/17 PROGRESS Observed: 12/19/2017 Status: COMPLETED Source: [place] 12:56 PM [facility] [place] REPOSITORY HNO ID: [id number] Author: Leni Mcbride Service: (none) Author Type: Physician Truck Repair Supervisor Type: Progress Notes Filed: 12/19/2017 1:50 PM Note Text: [facility] Respiratory [place], 12/19/17: INTERVAL HISTORY: The patient is here for follow up of asthma; the last Pulmonary Clinic visit was 09/18/17. Patient was evaluated in [place] ED 12/06/17 for wheezing and shortness of breath. CTA negative for PE. Patient treated with breathing treatment and placed on Prednisone. Today, he states he is breathing better, but is not back to baseline. The patient admits to compliance with prescribed maintenance Rx: Advair 2 inhalations twice daily and Spiriva 1 capsule daily. 2 nebulized treatments every couple days. Once daily rescue bronchodilator use in the evening prior to walking the dog. No nocturnal awakenings per month with asthma symptoms. Improved daily cough. Clear sputum. No hemoptysis. No wheezing. Exertional dyspnea stable. No disruption in taste or voice associated with use of inhaled corticosteroid. No tremor, palpitations, or muscle cramping associated with bronchodilator inhalation. PMH: Updated with patient today. FAMH: Updated with patient today. SOCH: Updated with patient today. ROS: General: Generally feels good. Appetite good. Weight stable. Eyes, Ears, nose, throat: No post nasal drip, rhinorrhea, purulent nasal discharge, epistaxis. No hoarseness. Vision stable. Cardiac: No angina, edema, orthopnea. GI: No heartburn, dysphagia. No nausea, vomiting, diarrhea. Uro/PUMP ERECTOR: No dysuria, hesitancy, nocturia. Musculoskeletal: No pain. Neuro: No headache, focal weakness, tremor. Skin: Leg wound, still following at the Wound Center. Otherwise negative. Immunization History Administered Date(s) Administered Influenza Seasonal - High Dose - Age 65+ 01/25/2014 01/20/2016 01/30/2017 Influenza Seasonal Inj Age 3+ 02/01/2015 Influenza Vaccine, Split-Non Spec 03/17/2006 03/17/2007 03/23/2008 02/11/2009 03/08/2010 02/16/2011 02/21/2012 01/21/2013 Pneumococcal-13 Vac Conjugate 02/22/2015 10/10/2015 Pneumovax 06/04/2000 09/17/2010 TD Adult 11/10/2006 Tdap (Age 7+) 09/05/2017 Tetanus Diphtheria Booster (Age >7) Pres Free 02/22/2016 Zostavax 04/01/2011 Allergies were verified and updated, and medications were reconciled with the patient at this visit. PHYSICAL EXAMINATION: BP 138/78 Pulse 93 Resp 16 Ht 5' 5.75 (1.67m) Wt 204 lb (92.5kg) SpO2 98% BMI 33.18 kg/(m2). Gen: No acute distress. Cooperative with examination. ENT: Nares clear. Oral hygeine good. Pharynx clear. Resp: No stridor, accessory respiratory muscle use. No crackles, wheezes. CV: Regular rythm. Heart tones normal. Radial pulses normal. Abd: Non distended. MSK: No kyphoscoliosis. Ext: Warm and well perfused. No cyanosis. Skin: No rash, eczema, urticaria. Neuro: Mental status normal. No tremor. DATA REVIEW: DATE: 12/19/17 02/28/17 03/07/16 04/04/15 FVC 2.51 (74 % pred) 2.33 (65 % pred) 3.02 (90 % pred) 3.07 (90 % pred) FEV1 1.81 (76 % pred) 1.69 (66 % pred) 2.28 (96 % pred) 2.29 (95 % pred) FEV1/FVC 0.72 0.73 0.76 0.75 ? Exhaled nitric oxide (Daniel), 12/19/17: 24 02/28/17: 23 (normal < 25). NM Lung Quant Perfusion Scan, 10/08/17 IMPRESSION: QUANTITATIVE PULMONARY PERFUSION MEASUREMENTS, INDICATED. Improved perfusion bilaterally. ?Persistent small subsegmental defects noted at the left lung base posteriorly. ?Dramatically improved perfusion left upper lung. ?Improved perfusion right upper lung and right lower lung however segmental defect persists superior segment right lower lobe RESULT: Conventional perfusion imaging is compared with the prior study from 01/27/2017 Improved perfusion is noted in the right upper lobe. ?This is significant compared with the prior study. ?Small subsegmental perfusion defects remain in the posterior aspect of the right upper lobe and posterior left lower lobe. ?Improved perfusion is noted in the left upper lobe without perfusion defect seen currently. ?Persistent segmental defect seen superior segment right lower lobe. The estimated contribution from total pulmonary perfusion is as follows: Right upper lung zone: 12.7%. Right middle lung zone: 23.3% Right lower lung zone: 3.5%. Total pulmonary perfusion to the right lun.5%. Left upper lung zone: 15.5%. Middle lung zone: 33.6% Left lower lung zone: 11.4%. Total pulmonary perfusion to the left lun.5%. Labs, 12/06/17 Cardiolipin Ab, IgG <9 0 - 9 GPL Final [facility] Cardiolipin Ab, IgM 26 (H) 0 - 11 MPL Final [facility] Cardiolipin Ab, IgA <9 0 - 11 APL Final [facility] IMPRESSION and RECOMMENDATIONS: Asthma, severe persistent, well controlled. 1. I reviewed the pathophysiology of asthma, NIH guidelines for evaluation and management, and mechanisms of action and side effects of medical therapy (ICS, bronchodilators) with the patient. 2. Continue Advair 2 inhalations twice daily and Spiriva 1 inhalation in the morning. Rinse mouth afterwards. 3. Try using your nebulizer in the morning prior to using your inhalers. 4. Continue Albuterol HFA inhaler, 2 inhalations 10?15 minutes prior to activities associated with shortness of breath, and as needed for rescue relief of shortness of breath or wheezing, up to 4 times daily. 5. Recommend annual influenza vaccine, ideally between March 02 and April 02. 6. Follow up with Dr. Graff as scheduled. 7. Re-assess in 6 months, sooner if needed.. History of PE. 1. Patient was evaluated by Dr. Montalvo. 2. IgM Anticardiolipin antibody remained equivocal, therefore, based on Dr. Montalvo's office notes, patient does not have an acquired hypercoagulable state, and there is no indication for for long-term anticoagulation therapy. Pulmonary HTN. 1. Last echocardiogram 05/02/17 showed no evidence of recurrent pulmonary hypertension or right ventricular strain. Right ventricular systolic pressure 41 mmHg. Previous echo in 01/28/17, was 65 mmHg indicating moderately severe pulmonary HTN. 2. Follow up with Dr. Verma as scheduled. I addressed the questions of the patient, and he expressed understanding and acceptance of my answers. Leni Mcbride PA-C [facility] Respiratory [place] [facility] [address] [place] [address] WOUND CTR HISTORY Observed: 12/16/2017 Status: F Source: [facility] 12:14 PM [facility] REPOSITORY [facility] [address] [place] [address] Wound Ctr History AND Physical 12/16/17 1209 MR#: [id number] Acct: [id number] Name: CARISSA YIP Rep #: [id number] : [id number] 77 From: Oz Cooper MD PCP: Lambert Larios MD Status: REG RCR Y Location: WC (1) Obesity Status: Chronic Current Visit: No Code(s): E66.9 - Obesity, unspecified (2) Open wound Status: Acute Current Visit: Yes Code(s): T14.8 - Other injury of unspecified body region (3) Open wound of left lower leg Status: Acute Current Visit: Yes Qualifiers: Encounter type: subsequent encounter Code(s): S81.802A - Unspecified open wound, left lower leg, initial encounter (4) Traumatic open wound of left lower leg Status: Acute Current Visit: Yes Qualifiers: Encounter type: subsequent encounter Code(s): S81.802A - Unspecified open wound, left lower leg, initial encounter (5) Leg swelling Status: Chronic Current Visit: Yes Code(s): M79.89 - Other specified soft tissue disorders (6) Traumatic wound Status: Acute Current Visit: Yes (7) Open wound of left lower extremity Status: Acute Current Visit: Yes Qualifiers: Encounter type: subsequent encounter Code(s): S81.802A - Unspecified open wound, left lower leg, initial encounter (8) History of pulmonary embolism Status: Chronic Current Visit: No Code(s): Z86.711 - Personal history of pulmonary embolism (9) 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 Current Visit: No Code(s): L97.929 - Non- pressure chronic ulcer of unspecified part of left lower leg with unspecified severity; L08.9 - Local infection of the skin and subcutaneous tissue, unspecified (10) Iron deficiency anemia Status: Chronic Current Visit: No Code(s): D50.9 - Iron deficiency anemia, unspecified (11) Pulmonary nodule Status: Chronic Current Visit: No Code(s): R91.1 - Solitary pulmonary nodule (12) HLD (hyperlipidemia) Status: Chronic Current Visit: No Code(s): E78.5 - Hyperlipidemia, unspecified (13) Diverticulosis Status: Chronic Current Visit: No Code(s): K57.90 - Diverticulosis of intestine, part unspecified, without perforation or abscess without bleeding (14) Asthma Status: Chronic Current Visit: No Code(s): J45.909 - Unspecified asthma, uncomplicated (15) Hypertension Status: Chronic Current Visit: No Qualifiers: Code(s): I10 - Essential (primary) hypertension (16) Osteoarthritis Status: Chronic Current Visit: No (17) History of prostate cancer Status: Chronic Current Visit: No Code(s): Z85.46 - Personal history of malignant neoplasm of prostate (18) Allergic rhinitis Status: Chronic Current Visit: No Code(s): J30.9 - Allergic rhinitis, unspecified (19) Rheumatoid arthritis Status: Chronic Current Visit: No Code(s): M06.9 - Rheumatoid arthritis, unspecified (20) Pleural plaque Status: Chronic Current Visit: No Code(s): J92.9 - Pleural plaque without asbestos (21) Macular degeneration Status: Chronic Current Visit: No Code(s): H35.30 - Unspecified macular degeneration (22) GERD (gastroesophageal reflux disease) Status: Chronic Current Visit: No Code(s): K21.9 - Gastro- esophageal reflux disease without esophagitis History of Present Illness Date of Service: 12/16/17 Chief Complaint: Recent traumatic injury of the left lower extremity with residual open wound History of Wound: This is a 77-year-old male who was in his normal state of health until September 06, 2017, at which time he sustained an injury to the left lateral calf, the result of a shovel which impaled into his left leg. The patient was rushed to the emergency department on that date, where he was treated by means of wound closure using sutures. Four days later, he had developed a cellulitis, and was admitted to the hospital for treatment. Patient was treated with antibiotics, and subsequently underwent wide surgical debridement of necrotic tissue by Dr. Homero Chin on September 12, 2017. Patient was discharged on September 16, 2017. He was discharged on Cipro 500 mg p.o. twice daily and Augmentin 875 mg p.o. twice daily. At the time of discharge, arrangements were made for the wound VAC to be the means of treatment, which has been changed every several days by home health nursing personnel. The patient had been on Xarelto and treatment for a pulmonary embolism which was diagnosed in January 2017. As result of his injury, the Xarelto has been discontinued. A noninvasive lower extremity arterial study performed in August 2016 revealed no evidence of arterial occlusive disease in the lower extremities. Therefore, there is no reason to believe there is since of any significant arterial occlusive disease. The patient has done well, showing progress with the use of the wound VAC. The patient developed cellulitis in his left lower extremity associated with fever. He was hospitalized at [facility] for approximately 4 days. He was treated initially with intravenous antibiotics consisting of Zosyn, and was subsequently discharged with a prescription for Augmentin, which has been completed. The wound VAC was discontinued, and alternative means have been implemented since that time. Silver Viola is currently being applied topically every other day. 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) Iron deficiency anemia (Chronic) Pulmonary nodule (Chronic) HLD (hyperlipidemia) (Chronic) Diverticulosis (Chronic) Asthma (Chronic) Hypertension (Chronic) Osteoarthritis (Chronic) History of prostate cancer (Chronic) Allergic rhinitis (Chronic) Rheumatoid arthritis (Chronic) Pleural plaque (Chronic) Macular degeneration (Chronic) GERD (gastroesophageal reflux disease) (Chronic) Surgical History: - - Umbilical hernia repair, appendectomy, bilateral carpal tunnel surgery, Prostatectomy, Cataract surgery, L lens implant, L knee surgery followed by LTKR, L shoulder surgery, left total hip replacement. Allergies/Adverse Reactions: Allergies indomethacin [From Indocin] Allergy (Verified 12/06/17 11:12) Itching indomethacin sodium [From Indocin] Allergy (Verified 12/06/17 11:12) Itching oxycodone HCl [From Percocet] Allergy (Verified 12/06/17 11:12) Itching Home Medications: Ambulatory Orders Medication Instructions Recorded Albuterol Sulfate [Proventil Hfa] 2 puff IH BID 07/13/13 Azelastine HCl [Astelin] 2 spray NASAL BID 07/13/13 - Family History Sibling Diabetes, Renal Disease, - - Patient's father at the age of 76 with history of colon cancer myocardial infarction. Patient's mother at age of 86 with a history of breast cancer. Maternal Cancer Paternal Cancer Smoking Status: Never smoker Tobacco Use: Non-smoker Review of Systems Constitutional: Denies: Chills, Fever, Weight Change Eyes: Denies: Pain, Vision Change HEENT: Denies: Difficulty Hearing, Difficulty Swallowing, Sinus Congestion Cardiovascular: Denies: Chest Pain, Palpitations Respiratory: Denies: Cough, Shortness of Breath Gastrointestinal: Denies: Diarrhea, Nausea, Vomiting Genitourinary: Denies: Dysuria, Hematuria Endocrine: Denies: Heat/ Cold Intolerance, Polydipsia, Polyuria Hematologic/ Lymphatic: Denies: Easy Bruising, Easy Bleeding - Physical Exam Vital Signs Temp Pulse Resp BP 98.2 F 98 18 130/76 H 12/16/17 10:37 12/16/17 10:37 12/16/17 10:37 12/16/17 10:37 General: Alert, Oriented x3, Cooperative, No apparent distress, Well developed, Well nourished HEENT: Atraumatic, PERRLA, EOMI, Normocephalic Oral: Moist Mucosa Neck: No JVD Lungs: Normal air movement Abdomen: Non-Distended Extremities: No clubbing, No cyanosis, No edema, No Calf Tenderness, - - The traumatic wound on the left lateral calf continues to diminish significantly in size. Dimensions are documented elsewhere. There is evidence of peripheral epithelialization. There is no sign of infection or cellulitis. The base of the wound is pink and healthy in appearance, with evidence of active granulation tissue. Only minimal to mild bioburden is present. Skin: No rashes Wound Measurements and Assessment WC - Nurse 1 - General Ulcer Measurement Start: 11/18/17 11:45 Freq: Status: Active Protocol: Activity Type Activity Date Activity User E-Sign Co-Sign Detail Recorded Client Recorded Date Recorded By Document 12/16/17 10:37 [id number] 12/16/17 10:40 Wound Center Nurse 1 [Ulcer Assessment] #7 LATERAL LLE- POST OP 09/12/17 -Combined with other wound No WC - Nurse 2 - General Ulcer CM Notes Start: 11/18/17 11:45 Freq: Status: Active Protocol: Activity Type Activity Date Activity User E-Sign Co-Sign Detail Recorded Client Recorded Date Recorded By Document 12/16/17 11:38 [id number] 12/16/17 11:44 JS Musculoskeletal: No Muscle Wasting Neurological: Cranial nerves II-XII grossly intact, Neuro grossly intact Psych/Mental Status: Normal Affect, Appropriate, Alert and oriented to time, place, person, mood and affect Debridement Note Post-Debridement Measurements/Treatment WC - Nurse 2 - General Ulcer CM Notes Start: 11/18/17 11:45 Freq: Status: Active Protocol: Activity Type Activity Date Activity User E-Sign Co-Sign Detail Recorded Client Recorded Date Recorded By Document 11/18/17 12:31 [id number] 11/18/17 12:32 Wound Center Nurse 2 Wound Center Nurse 2 #7 LATERAL LLE- POST OP 09/12/17 -Time 11:38 -Correct Patient Yes -Correct Side, Site, Position Yes -Correct Procedure Yes Laterality: Left - Lateral calf Type of Debridement: Excisional debridement Anesthesia Used: 4% Lidocaine Solution Depth: Down to and including healthy tissue, in the subcutaneous layer Percentage of wound debrided: 100 Instrument Used: 5mm curette Severity: Fat Layer Exposed Amount of bleeding with debridement: Mild Bleeding Controlled with: Compression and gauze Patient tolerated procedure well Assessment/Plan Active Problems Open wound (Acute) Open wound of left lower leg (Acute) Traumatic open wound of left lower leg (Acute) Leg swelling (Chronic) Traumatic wound (Acute) Open wound of left lower extremity (Acute) Assessment: This is a 77-year-old male with a traumatic injury to the left lateral calf. The patient appears to be responding well to current measures, which has included the use of Silver Viola topically for the last several weeks. Plan: We will continue the use of Silver Viola. This will be applied every other day. Patient has shown significant progress. Patient will return in 1 week for reassessment. Intake of a well-balanced and nutritious diet has been advised. Patient has been advised to elevate his lower extremities, to minimize swelling and edema. The patient is not a smoker. Influenza vaccine was not administered today. Patient stands 5 feet 4 inches tall. He weighs 210 pounds. His BMI is 36.0, which places him in a class II category. Weight loss has been recommended, with collaboration with his primary care physician. 12/16/17 1214 <Electronically signed by Oz Cooper MD> Date Oz Cooper MD CC: Signed CNPN Observed: 12/08/2017 Status: COMPLETED Source: [place] 12:00 AM [facility]IT[facility] CARISSA YIP ([id number]) 1940 M Date Time Provider Department 12/08/17 [facility] WALKER [facility] During your visit today, we recorded the following information about you: Glenna Walker APRN.PETROS 12/08/2017 7:30 AM Signed Labs are returning to normal compared to hospital stay. Na is borderline low. Please be sure to not drink excessive amounts of water and discourage use of alcohol. Need to keep DM under control as well. Ok to drink low sugar electrolyte drinks as well. Glenna Walker APRN.PETROS Navas Ma 12/08/2017 10:29 AM Signed TC to patient. Unable to reach. Left message to call office. 12/08/2017 10:29 AM Ted Patel LPN 12/08/2017 1:42 PM Signed Pt returned call to office, notified of provider instructions. He verbalized understanding. Ted Arteaga LPN 12/10/2017 4:14 PM Signed Patient calling with more questions about results, went over sodium information with him again and explained to him what electrolyte low calorie drinks were, gatorade zero and powerade zero. Allergies As of Date: 12/08/2017 Noted Allergy Reaction INDOCIN (INDOMETHACIN SODIUM) 04/01/2011 14 - Other: See Comments Comments: Wheezing, can take naprosyn PERCOCET (OXYCODONE-ACETAMINOPHEN)01/08/2005 9 - Itching SEASONAL ALLERGIES 11/12/2012 14 - Other: See Comments Comments: Cat, Goats, Dust mites, molds, trees, grasses, weed, ragweed Date Reviewed: 12/06/2017 Reviewed by: Radha Nicholas Ma - Fully Assessed Reason for Visit: Results [95] Prescriptions as of 12/08/2017 Sig: SPIRIVA WITH HANDIHALER 18 MC* inhale the contents of one ca* AMOXICILLIN 875 MG-POTASSIUM * Take 2 tablets by mouth twice* FLUTICASONE 50 MCG/ACTUATION * instill 2 sprays into each no* FUROSEMIDE 40 MG TABLET Take 1 tablet by mouth once d* SERTRALINE 100 MG TABLET Take 1.5 tablets by mouth onc* MONTELUKAST 10 MG TABLET Take 1 tablet by mouth daily * NITROGLYCERIN 0.4 MG SUBLINGU* Dissolve 1 tablet under the t* GUAIFENESIN ER 600 MG TABLET,* Take 1 tablet by mouth twice * ADVAIR HFA 230 MCG-21 MCG/ACT* take 2 inhalations by mouth t* OMEPRAZOLE 20 MG CAPSULE,ALEX* Take 1 capsule by mouth daily* LISINOPRIL 20 MG TABLET Take 1 tablet by mouth once d* ATORVASTATIN 10 MG TABLET take 1 tablet by mouth at bed* LEFLUNOMIDE 10 MG TABLET Take 10 mg by mouth once christiano* VENTOLIN HFA 90 MCG/ACTUATION* inhale 2 puffs every 4 hours * NYSTATIN-TRIAMCINOLONE 100,00* Apply 1 application to affect* AZELASTINE 137 MCG (0.1 %) NA* instill 2 sprays into each no* IPRATROPIUM-ALBUTEROL 0.5 MG-* Inhale 3 mL as instructed fou* COMPOUNDED PRESCRIPTION Polypodium Leucotomos extract* Patient not taking: Reported on 11/18/2017 EPINEPHRINE 0.3 MG/0.3 ML INJ* Inject 0.3 mL intramuscularly* ALBUTEROL SULFATE HFA 90 MCG/* Inhale 2 Puffs as instructed. POLYETHYLENE GLYCOL 3350 17 G* Take 17 g by mouth once daily* FERROUS SULFATE 325 MG (65 MG* Take one(1) tablet two(2) link* Patient taking differently: Take 325 mg by mouth twice da* IPRATROPIUM BROMIDE 0.02 % SO* 500 mcg (one ampule) nebulize* PRESERVISION AREDS 7,160 UNIT* Take one(1) tablet two(2) link* Problem List As Of Date 12/08/2017 Noted Resolved Asthma [J45.909] 08/25/2017 CHRONIC RHINITIS [J31.0] BPH without obstruction/lower urinary tract sym* ANXIETY STATE NOS [F41.1] 08/05/2014 Depression with anxiety [F41.8] Diverticulosis of colon (without mention of hem* 10/06/2012 ESOPHAGEAL REFLUX [K21.9] Internal hemorrhoids without mention of complic* 08/30/2010 Malignant neoplasm of prostate (HCC) [C61] INVALID FOR*08/05/2014 MACULAR DEGENERATION NOS [H35.30] Other specified iron deficiency anemias [D50.8] INVALID FOR*08/30/2010 Diabetes mellitus type 2, controlled, without c*INVALID FOR* Hyperlipidemia [E78.5] INVALID FOR* Personal history of colonic polyps [Z86.010] INVALID FOR*09/30/2011 More... FAMILY HX COLON CANCER [Z80.0] INVALID FOR*08/25/2017 PULMONARY NODULES [J98.4] INVALID FOR*10/06/2012 More... 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] INVALID FOR* Essential hypertension [I10] INVALID FOR* Generalized osteoarthritis of multiple sites [M*INVALID FOR* Benign neoplasm of rectum and anal canal [D12.8*INVALID FOR*10/06/2012 Benign neoplasm of colon [D12.6] INVALID FOR* Gout [M10.9] INVALID FOR* Venous insufficiency of leg [I87.2] INVALID FOR* Iron deficiency anemia due to chronic blood los*INVALID FOR* Inflammatory polyarthropathy of multiple sites *INVALID FOR* Unsteady gait [R26.81] INVALID FOR* Uncomplicated severe persistent asthma [J45.50] INVALID FOR* Other pulmonary embolism without acute cor pulm*INVALID FOR* Pulmonary hypertension (HCC) [I27.20] INVALID FOR* Memory disturbance [R41.3] INVALID FOR* Obesity, Class I, BMI 30-34.9 E66.9 [E66.9] INVALID FOR* Open wound of left lower extremity [S81.802A] INVALID FOR* 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] INVALID FOR* Encounter Status:Closed by TED PATEL LPN on 12/08/17 EMERGENCY DEPARTMENT Observed: 12/07/2017 Status: F Source: [place] SUMMARY 8:22 AM [facility] REPOSITORY [facility] Medical Records Department [address] [place] [address] Emergency Department Summary 12/06/17 1414 MR#: [id number] Acct: [id number] Name: CARISSA YIP Rep #: [id number] : [id number] 77 From: Prasanth Meier DO PCP: Lambert Larios MD Status: DEP ER - ER Visit Summary Date of Service: 12/06/17 Chief Complaint: Shortness of breath History of Present Illness: The patient is a 77 M who has a history of PE and asthma. Patient states that home health is noted that he has been wheezing and seemed more short of breath than normal. He believes that his asthma but wanted to be certain that it was an another pulmonary embolism. Patient denies any fevers. No sputum production. Physical Examination: Afebrile vital signs are stable Gen: Well-nourished well-developed Head: Normocephalic atraumatic Eyes: Perrl EOMI ENT: TMs clear no rhinorrhea moist mucous membranes Neck: Supple no lymphadenopathy no JVD nontender CVS: Regular rate rhythm no murmurs normal S1-S2 Respiratory: No distress chest nontender expiratory and expiratory wheezing with rhonchi Abdomen: Soft nontender nondistended normal bowel sounds no masses Back: Nontender Extremity: Left leg wrapped Skin: Normal color no rash Neuro: alert orientated 3 CN II-XII intact normal strength sensation reflexes gait cerebellar Psych: Normal affect normal mood Test Results: CBC BMP is normal. CTA is negative for PE Emergency Department Course and Treatment: Patient received a breathing treatment. He will be placed on prednisone. Return if worsening or concerns. Impression: 1. Asthma exacerbation This note was generated with [employer] dictation software. It may contain incorrect words, spelling, and punctuation that were not noted in review of the chart prior to signing ED Disposition - Plan for ED Patient: Disposition: Home or Assisted Living Chief Complaint: Shortness of Breath Instructions: ED Bronchitis Asthmatic Prescriptions: Prednisone [Deltasone] 60 mg PO DAILY #15 tab Referrals: Lambert Larios MD [Primary Care Provider] - 3-5 Days if not improving What to do if you have Problems For any increased pain, shortness of breath, bleeding, nausea or vomiting, chest pain, or any unexpected problems, contact your Primary Care Provider. Call [facility] ([phone]) or report to the closest Emergency Room. Call 911 if necessary. 12/07/17821 <Electronically signed by Prasanth Meier DO> Date Prasanth Meier DO Cosigner Signature (If Indicated): Date CC: Lambert Larios MD PROGRESS Observed: 12/06/2017 Status: COMPLETED Source: [place] 1:22 PM [facility] [place] REPOSITORY HNO ID: [id number] Author: Fidelina Peres Service: (none) Author Type: Nurse Practitioner Type: Progress Notes Filed: 12/06/2017 1:32 PM Note Text: NEENA Carissa Yip is a 77 year old male who presents today for CC of shortness of breath. This started over the past 2 days. He has a history of a PE in the past year, and is not on any anticoagulant. Advise unable to do xray here and due to risk factors will need to go to ER for further evaluation. Patient does not show any sign of distress. was present with him will transport to ER. BP 124/70 Pulse 100 Temp 37.2 ?C (98.9 ?F) (Tympanic) Wt 92.5 kg (204 lb) SpO2 95% BMI 33.18 kg/m? 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 Gout Venous Insufficiency of Leg Iron Deficiency Anemia Due to Chronic Blood Loss Inflammatory Polyarthropathy of Multiple Sites (Hcc) Unsteady Gait Uncomplicated Severe Persistent Asthma Other Pulmonary Embolism Without Acute Cor Pulmonale (Hcc) Pulmonary Hypertension (Hcc) Memory Disturbance Obesity, Class I, BMI 30-34.9 E66.9 Open Wound of Left Lower Extremity 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 Social History Main Topics Smoking status: Never Smoker Smokeless tobacco: Never Used Comment: Father smoked in childhood home. No household smoke exposure since. 05/2014. Alcohol use: No Drug use: No Social History Narrative 2017: Lives with spouse w/ depression. No longer driving since 2013 due to macular degeneration. drives. Ambulatory with cane. Dyspnea on moderate exertion. Fidelina Peres APRN.SIGNAL OPERATOR CTA CHEST W/WO Observed: 12/06/2017 Status: F Source: [place] CONTRAST 12:51 PM [facility] REPOSITORY [facility] Imaging Services [address] [place] [address] CTA Chest W/WO Contrast MR#: [id number] Acct: [id number] Name: CARISSA YIP Rep #: [id number] : 1940 M 77 From: Liborio Bruno MD PCP: Lambert Larios MD Status: REG ER Study: CTA Chest W/WO Contrast Date of Exam: 12/06/17 Exam# [id number] Ordering Dr: Prasanth Meier DO STUDY: CTA CHEST REASON FOR EXAM: Male, 77 years old. Dyspnea. History of pulmonary embolism. RADIATION DOSAGE (If Supplied By Facility): CTDIvol = ( 18.26 ) mGy, DLP = ( 761.32 ) mGycm TECHNIQUE: The examination was performed with the intravenous administration of 75 ml of Isovue 370 contrast material. Post-processing of the angiographic images was performed, with multiplanar reformation and 3D reconstruction. Individualized dose optimization techniques were used for this CT. COMPARISON: None. FINDINGS: Normal enhancement of the main pulmonary artery and right and left pulmonary arteries. Normal enhancement of the bilateral peripheral pulmonary arteries. There is no demonstrated pulmonary embolism. There is atherosclerotic calcification of the aortic arch with mild tortuosity. There is no demonstrated aortic dissection. Normal heart and pericardium. There are calcifications of the coronary arteries. There are few small nodes in the anterior mediastinum and aortopulmonic window. There are calcified subcarinal nodes. There is no evidence of hilar adenopathy. Normal visualized trachea and bronchi. The lungs are well expanded. There are calcified nodules and pleural-based calcifications as well as calcified pleural plaques bilaterally which could be due to old granulomatous disease and previous asbestos exposure. There is moderate stranding in the right lower and middle lobes with bronchiectatic changes appear to be chronic. No focal infiltrate is seen. There are no pleural effusions. Normal chest wall structures. There are mild degenerative changes of thoracic spine. The visualized portions of the upper abdomen demonstrate calcified granulomata in the spleen. CT/CTA Chest W/WO Contrast IMPRESSION: No evidence of pulmonary embolism. Bilateral lower lung scarring and bronchiectatic changes. Pleural-based calcifications and calcified nodules likely due to old granulomatous disease and previous asbestos exposure No focal infiltrate is seen. Electronically Signed: Liborio Bruno MD at 13:41 EDT Tel , Service support , CC: Prasanth Meier DO; Lambert Larios MD Orthotics Prosthetics Assistant: Signed CBC W/DIFF, AUTOMATED Collected: 12/06/2017 Status: F Source: [place] 12:22 PM [facility] REPOSITORY TYPE CODE TESTS RESULT OUT OF RANGE REFERENCE UNITS LAB L100.1000 4.4-11.0 K/mm3 Normal WBC 5.6 LAB L100.1200 4.6-6.2 M/mm3 Low RBC 4.15 LAB L100.1300 13.0-16.5 g/dl Low HGB 11.2 LAB L100.1400 40-54 % Low HCT 35.7 LAB L100.1500 80-94 fL Normal MCV 86.0 LAB L100.1600 27.0-32.0 pg Normal MCH 27.0 LAB L100.1700 32-36 g/gl Low MCHC 31.4 LAB L100.1810 11.6-14.6 % High RDW CV 16.0 LAB L100.1820 35.1-43.9 fl High RDW SD 50.5 LAB L100.1900 150-450 K/mm3 Normal PLT 180 LAB L100.2000 6.2-12.0 fl Normal MPV 9.4 LAB L100.2100 47-70 % High NEUT% 75.6 LAB L100.2200 19-41 % Low LY% 12.1 LAB L100.2300 0-10 % Normal MONO% 9.4 LAB L100.2400 0-5 % Normal EO% 2.5 LAB L100.2500 0-1 % Normal BASO% 0.2 LAB L100.2550 0.0-0.9 % Normal IM GRAN % 0.200 Result Comment: IG% - Immature Granulocytes (promyelocytes, myelocytes and metamyelocytes) > 1% indicates that a LEFT SHIFT is Present. LAB L100.2620 2.0-7.7 X10 3/uL Normal Absolute Neut 4.3 LAB L100.2720 0.83-4.51 X10 3/ul Low Absolute Lymph 0.68 Performed By: #### L100.0100 #### [facility] [place], [address] BASIC METABOLIC Collected: 12/06/2017 Status: F Source: [place] PROFILE (BMP) 12:22 PM [facility] REPOSITORY TYPE CODE TESTS RESULT OUT OF RANGE REFERENCE UNITS LAB L501.0100 74-106 mg/dL Normal GLU 105 Result Comment: Fasting Glucose result from 100 to 125 mg/dL suggests IMPAIRED HOMEOSTASIS per A.D.A. criteria. Please note revised GLUCOSE reference range effective 2017. LAB L501.1000 7-18 mg/dL High BUN 21 LAB L501.1100 0.70-1.30 mg/dL Normal CREAT,SERUM 1.16 Result Comment: The validity of the calculated GFR AND GFRAA in patients over 70 years has not been determined. Clinical correlation is essential. LAB L501.1110 >60 mL/min Normal EST GFR 65 Result Comment: Non- GFR Calc LAB L501.1115 >60 mL/min Normal EST GFR - AA 78 Result Comment: GFR Calc LAB L501.1255 ml/min Normal Estimated CRCL 44.92 LAB L501.1300 10-20 RATIO Normal BUN/CRE 18.1 LAB L501.2200 8.5-10 mg/dL Normal .1 CA 8.9 LAB L501.5300 136-14 mmol/L Normal 5 NA 137 LAB L501.5600 3.5-5. mmol/L Normal 1 K 4.7 LAB L501.5900 98-107 mmol/L High CL 108 LAB L501.6100 21.0-3 mmol/L Normal 2.0 CO2 24.0 LAB L501.6200 5-15 Normal GAP 5 Performed By: #### L500.2500, L501.4010 #### [facility] [place], [address] TROPONIN-I Collected: 12/06/2017 Status: F Source: [place] 12:22 PM [facility] REPOSITORY TYPE CODE TESTS RESULT OUT OF RANGE REFERENCE UNITS LAB L501.4010 <0.045 ng/mL Normal < 0.015 TROPONIN-I Result Comment: TROPONIN-I EXPECTED VALUES <0.045 Negative 0.045 - 0.590 Consistent with Cardiac Damage > OR = 0.600 Critical Value Not every elevated troponin is indicative of ND. These values should be used with clinical judgement in examining the patient's clinical picture for diagnosis. To establish a diagnosis of ND versus myocardial injury, there must be a demonstrated rise and/or fall in the troponin values, in addition to ischemic symptoms, EKG changes, new regional wall motion abnormality, and/or angiographical evidence. PLEASE NOTE: REFERENCE RANGES EDITED 17 Performed By: #### L500.2500, L501.4010 #### [facility] [place], [address] CNOV Observed: 12/06/2017 Status: COMPLETED Source: [place] 10:30 AM [facility] REPOSITORY Office Visit ([facility]) PHICARISSA Mabry ([id number]) 1940 M Date Time Provider Department 12/06/17 10:30 AM [facility] During your visit today, we recorded the following information about you: Temperature Pulse Blood pressure Weight 98.9 degrees 100/minute 124/70 92.5 kg Fidelina Peres APRN.SIGNAL OPERATOR 12/06/2017 1:32 PM Signed HPI Carissa Mabry Phi is a 77 year old male who presents today for CC of shortness of breath. This started over the past 2 days. He has a history of a PE in the past year, and is not on any anticoagulant. Advise unable to do xray here and due to risk factors will need to go to ER for further evaluation. Patient does not show any sign of distress. was present with him will transport to ER. BP 124/70 Pulse 100 Temp 37.2 ?C (98.9 ?F) (Tympanic) Wt 92.5 kg (204 lb) SpO2 95% BMI 33.18 kg/m? 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 Gout Venous Insufficiency of Leg Iron Deficiency Anemia Due to Chronic Blood Loss Inflammatory Polyarthropathy of Multiple Sites (Hcc) Unsteady Gait Uncomplicated Severe Persistent Asthma Other Pulmonary Embolism Without Acute Cor Pulmonale (Hcc) Pulmonary Hypertension (Hcc) Memory Disturbance Obesity, Class I, BMI 30-34.9 E66.9 Open Wound of Left Lower Extremity 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 Social History Main Topics Smoking status: Never Smoker Smokeless tobacco: Never Used Comment: Father smoked in childhood home. No household smoke exposure since. 05/2014. Alcohol use: No Drug use: No Social History Narrative 2017: Lives with spouse w/ depression. No longer driving since 2013 due to macular degeneration. drives. Ambulatory with cane. Dyspnea on moderate exertion. Fidelina Peres APRN.SIGNAL OPERATOR Referring Provider: SELF [[id number]] Allergies As of Date: 12/06/2017 Noted Allergy Reaction INDOCIN (INDOMETHACIN SODIUM) 04/01/2011 14 - Other: See Comments Comments: Wheezing, can take naprosyn PERCOCET (OXYCODONE-ACETAMINOPHEN)01/08/2005 9 - Itching SEASONAL ALLERGIES 11/12/2012 14 - Other: See Comments Comments: Cat, Goats, Dust mites, molds, trees, grasses, weed, ragweed Date Reviewed: 12/06/2017 Reviewed by: Radha Nicholas Ma - Fully Assessed Reason for Visit: Wheezing [181] Cmt: wheezing, cough, SOB Primary Visit Diagnosis:SOB (shortness of breath) [R06.02] Prescriptions as of 12/06/2017 Sig: SPIRIVA WITH HANDIHALER 18 MC* inhale the contents of one ca* FLUTICASONE 50 MCG/ACTUATION * instill 2 sprays into each no* SERTRALINE 100 MG TABLET Take 1.5 tablets by mouth onc* MONTELUKAST 10 MG TABLET Take 1 tablet by mouth daily * NITROGLYCERIN 0.4 MG SUBLINGU* Dissolve 1 tablet under the t* GUAIFENESIN ER 600 MG TABLET,* Take 1 tablet by mouth twice * ADVAIR HFA 230 MCG-21 MCG/ACT* take 2 inhalations by mouth t* OMEPRAZOLE 20 MG CAPSULE,ALEX* Take 1 capsule by mouth daily* LISINOPRIL 20 MG TABLET Take 1 tablet by mouth once d* ATORVASTATIN 10 MG TABLET take 1 tablet by mouth at bed* LEFLUNOMIDE 10 MG TABLET Take 10 mg by mouth once christiano* VENTOLIN HFA 90 MCG/ACTUATION* inhale 2 puffs every 4 hours * NYSTATIN-TRIAMCINOLONE 100,00* Apply 1 application to affect* AZELASTINE 137 MCG (0.1 %) NA* instill 2 sprays into each no* IPRATROPIUM-ALBUTEROL 0.5 MG-* Inhale 3 mL as instructed fou* EPINEPHRINE 0.3 MG/0.3 ML INJ* Inject 0.3 mL intramuscularly* ALBUTEROL SULFATE HFA 90 MCG/* Inhale 2 Puffs as instructed. POLYETHYLENE GLYCOL 3350 17 G* Take 17 g by mouth once daily* FERROUS SULFATE 325 MG (65 MG* Take one(1) tablet two(2) link* Patient taking differently: Take 325 mg by mouth twice da* IPRATROPIUM BROMIDE 0.02 % SO* 500 mcg (one ampule) nebulize* PRESERVISION AREDS 7,160 UNIT* Take one(1) tablet two(2) link* AMOXICILLIN 875 MG-POTASSIUM * Take 2 tablets by mouth twice* FUROSEMIDE 40 MG TABLET Take 1 tablet by mouth once d* COMPOUNDED PRESCRIPTION Polypodium Leucotomos extract* Patient not taking: Reported on 11/18/2017 Problem List As Of Date 12/06/2017 Noted Resolved Asthma [J45.909] 08/25/2017 CHRONIC RHINITIS [J31.0] BPH without obstruction/lower urinary tract sym* ANXIETY STATE NOS [F41.1] 08/05/2014 Depression with anxiety [F41.8] Diverticulosis of colon (without mention of hem* 10/06/2012 ESOPHAGEAL REFLUX [K21.9] Internal hemorrhoids without mention of complic* 08/30/2010 Malignant neoplasm of prostate (HCC) [C61] INVALID FOR*08/05/2014 MACULAR DEGENERATION NOS [H35.30] Other specified iron deficiency anemias [D50.8] INVALID FOR*08/30/2010 Diabetes mellitus type 2, controlled, without c*INVALID FOR* Hyperlipidemia [E78.5] INVALID FOR* Personal history of colonic polyps [Z86.010] INVALID FOR*09/30/2011 More... FAMILY HX COLON CANCER [Z80.0] INVALID FOR*08/25/2017 PULMONARY NODULES [J98.4] INVALID FOR*10/06/2012 More... 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] INVALID FOR* Essential hypertension [I10] INVALID FOR* Generalized osteoarthritis of multiple sites [M*INVALID FOR* Benign neoplasm of rectum and anal canal [D12.8*INVALID FOR*10/06/2012 Benign neoplasm of colon [D12.6] INVALID FOR* Gout [M10.9] INVALID FOR* Venous insufficiency of leg [I87.2] INVALID FOR* Iron deficiency anemia due to chronic blood los*INVALID FOR* Inflammatory polyarthropathy of multiple sites *INVALID FOR* Unsteady gait [R26.81] INVALID FOR* Uncomplicated severe persistent asthma [J45.50] INVALID FOR* Other pulmonary embolism without acute cor pulm*INVALID FOR* Pulmonary hypertension (HCC) [I27.20] INVALID FOR* Memory disturbance [R41.3] INVALID FOR* Obesity, Class I, BMI 30-34.9 E66.9 [E66.9] INVALID FOR* Open wound of left lower extremity [S81.802A] INVALID FOR* 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) [D68.52] INVALID FOR* Encounter Status:Closed by FIDELINA PERES CNP on 12/06/17 CBC AND DIFFERENTIAL Collected: 12/06/2017 Status: F Source: [place] 10:15 AM [facility] REPOSITORY TYPE CODE TESTS RESULT OUT OF REFERENCE UNITS RANGE LAB WBC 3.70-11.00 k/uL WBC 6.10 LAB RBC 4.20-6.00 m/uL Low RBC 4.06 LAB HGB 13.0-17.0 g/dL Low Hemoglobin 11.1 LAB HCT 39.0-51.0 % Low Hematocrit 35.9 LAB MCV 80.0-100.0 fL MCV 88.4 LAB MCH 26.0-34.0 pG MCH 27.3 LAB MCHC 30.5-36.0 g/dL MCHC 30.9 LAB RDWCV 11.5-15.0 % RDW-CV High 15.9 LAB PLTCT 150-400 k/uL Platelet Count 207 LAB MPV 9.0-12.7 fL MPV 10.5 LAB ANEUT % Neut% 72.5 LAB AANEUT 1.45-7.50 k/uL Abs Neut 4.43 LAB ALYMP % Lymph% 13.0 LAB AALYMP 1.00-4.00 k/uL Low Abs Lymph 0.79 LAB AMONO % Teller% 11.0 LAB AAMONO <0.87 k/uL Abs Teller 0.67 LAB AEOS % Eosin% 3.3 LAB AAEOS <0.46 k/uL Abs Eosin 0.20 LAB ABASO % Baso% 0.2 LAB AABASO <0.11 k/uL Abs Baso <0.03 LAB AUNRBC 0 /100 WBC NRBCs 0.0 LAB ABNRBC <0.01 k/uL Absolute nRBC <0.01 LAB DTYP DTYPE Auto Diff Performed By: #### CBCDIF, CMP, CARDIO #### [facility] [address] [place], [place] [address] COMP METABOLIC PANEL Collected: 12/06/2017 Status: F Source: [place] 10:15 AM [facility] REPOSITORY TYPE CODE TESTS RESULT OUT OF REFERENCE UNITS RANGE LAB TP 6.3-8.0 g/dL Protein, Total 7.5 LAB ALB 3.9-4.9 g/dL Low Albumin 3.8 LAB CA 8.5-10.2 mg/dL Calcium, Total 9.2 LAB TBIL 0.2-1.3 mg/dL Bilirubin, Total 0.2 LAB ALKP 36-108 U/L Alkaline Phosphatase 80 LAB AST 14-40 U/L AST 31 LAB GLU 74-99 mg/dL Glucose High 109 Result Comment: The [place] Diabetes Association (ADA) provides guidance for cutoff values for fasting glucose and random glucose. The ADA defines fasting as no caloric intake for at least 8 hours. Fas ting plasma glucose results between 100 to 125 mg/dL indicate increased risk for diabetes (prediabetes). Fasting plasma glucose results greater than or equal to 126 mg/dL meet the criteria for diagnosis of diabetes. In the absence of unequivocal hyperglycemia, results should be confirmed by repeat testing. In a patient with classic symptoms of hyperglycemia or hyperglycemic crisis, random plasma glucose results greater than or equal to 200 mg/dL meet the criteria for diagnosis of diabetes. Reference: Standards of Medical Care in Diabetes 2016, [place] Diabetes Association. Diabetes Care. 2016.39(Suppl 1). LAB BUN 9-24 mg/dL BUN 22 LAB CRET 0.73-1.22 mg/dL Creatinine 1.10 LAB NA 136-144 mmol/L Sodium Low 135 LAB K 3.7-5.1 mmol/L Potassium 5.0 LAB CL 97-105 mmol/L Chloride 103 LAB CO2 22-30 mmol/L CO2 Low 20 LAB AGAP 9-18 mmol/L Anion Gap 12 LAB ALT 10-54 U/L ALT 20 LAB GFRAA eGFR- Amer. >60 LAB GFRNAA . eGFR-All Other Races >60 Result Comment: eGFR (Estimated GFR) Units of measure: mL/min/1.73 meters squared eGFR is derived from the reexpressed MDRD Study equation using the following parameters: serum creatinine, age, gender and race. The creatinine assay has been calibrated to be traceable to IDMS. An eGFR <60 mL/min/1.73m2 for >3 months is consistent with chronic kidney disease. Refer to KDOQI guidelines for clinical interpretation. In patients with unstable renal function, e.g. those with acute kidney injury, the eGFR may not accurately reflect actual GFR. Performed By: #### CBCDIF, CMP, CARDIO #### [facility] [address] [place], [place] [address] CARDIOLIPIN ANTIBODY Collected: 12/06/2017 Status: F Source: [place] 10:15 AM [facility] REPOSITORY TYPE CODE TESTS RESULT OUT OF REFERENCE UNITS RANGE LAB CARDG 0-9 GPL IgG Cardiolipin Ab. <9 Result Comment: <10 GPL Negative 10-40 GPL Equivocal >40 GPL Positive The following results were obtained with the PostlingA Lite CHELA IgG III ANH. Cardiolipin IgG values obtained with the different manufacturers' assay methods may not be used interchangeably. The mag nitude of the reported IgG levels cannot be correlated to an endpoint titer. LAB CARDM 0-11 MPL IgM Cardiolipin High Ab. 26 Result Comment: <12 MPL Negative 12-40 MPL Equivocal >40 MPL Positive The following results were obtained with the Inova QUANTA Lite CHELA IgM III ANH. Cardiolipin IgM values obtained with different manufacturers' assay methods may not be used interchangeably. The magnitu de of the reported IgM levels cannot be correlated to an endpoint titer. LAB CARDA 0-11 APL IgA Cardiolipin Ab. <9 Result Comment: <12 APL Negative 12-40 APL Equivocal >40 APL Positive The following results were obtained with an Inova QUANTA Lite CHELA IgA III ANH. Cardiolipin IgA values obtained with different manufacturers' assay methods may not be used interchangeably. The magnitud e of the reported IgA levels cannot be correlated to an endpoint titer. Performed By: #### CBCDIF, CMP, CARDIO #### [facility] [address] [place], [place] [id number] WOUND CTR HISTORY Observed: 12/02/2017 Status: F Source: [place]EN[place] AND PHYSICAL 11:15 AM [facility] REPOSITORY [facility] [address] [place] [address] Wound Ctr History AND Physical 12/02/17 1109 MR#: [id number] Acct: [id number] Name: CARISSA YIP Rep #: [id number] : [id number] From: Oz Cooper MD PCP: Lambert Larios MD Status: REG RCR Y Location: WC (1) Obesity Status: Chronic Current Visit: No Code(s): E66.9 - Obesity, unspecified (2) Open wound Status: Acute Current Visit: Yes Code(s): T14.8 - Other injury of unspecified body region (3) Open wound of left lower leg Status: Acute Current Visit: Yes Qualifiers: Encounter type: subsequent encounter Code(s): S81.802A - Unspecified open wound, left lower leg, initial encounter (4) Traumatic open wound of left lower leg Status: Acute Current Visit: Yes Qualifiers: Encounter type: subsequent encounter Code(s): S81.802A - Unspecified open wound, left lower leg, initial encounter (5) Leg swelling Status: Chronic Current Visit: Yes Code(s): M79.89 - Other specified soft tissue disorders (6) Traumatic wound Status: Acute Current Visit: Yes (7) Open wound of left lower extremity Status: Acute Current Visit: Yes Qualifiers: Encounter type: subsequent encounter Code(s): S81.802A - Unspecified open wound, left lower leg, initial encounter (8) History of pulmonary embolism Status: Chronic Current Visit: No Code(s): Z86.711 - Personal history of pulmonary embolism (9) 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 Current Visit: No Code(s): L97.929 - Non- pressure chronic ulcer of unspecified part of left lower leg with unspecified severity; L08.9 - Local infection of the skin and subcutaneous tissue, unspecified (10) Iron deficiency anemia Status: Chronic Current Visit: No Code(s): D50.9 - Iron deficiency anemia, unspecified (11) Pulmonary nodule Status: Chronic Current Visit: No Code(s): R91.1 - Solitary pulmonary nodule (12) HLD (hyperlipidemia) Status: Chronic Current Visit: No Code(s): E78.5 - Hyperlipidemia, unspecified (13) Diverticulosis Status: Chronic Current Visit: No Code(s): K57.90 - Diverticulosis of intestine, part unspecified, without perforation or abscess without bleeding (14) Asthma Status: Chronic Current Visit: No Code(s): J45.909 - Unspecified asthma, uncomplicated (15) Hypertension Status: Chronic Current Visit: No Qualifiers: Code(s): I10 - Essential (primary) hypertension (16) Osteoarthritis Status: Chronic Current Visit: No (17) History of prostate cancer Status: Chronic Current Visit: No Code(s): Z85.46 - Personal history of malignant neoplasm of prostate (18) Allergic rhinitis Status: Chronic Current Visit: No Code(s): J30.9 - Allergic rhinitis, unspecified (19) Rheumatoid arthritis Status: Chronic Current Visit: No Code(s): M06.9 - Rheumatoid arthritis, unspecified (20) Pleural plaque Status: Chronic Current Visit: No Code(s): J92.9 - Pleural plaque without asbestos (21) Macular degeneration Status: Chronic Current Visit: No Code(s): H35.30 - Unspecified macular degeneration (22) GERD (gastroesophageal reflux disease) Status: Chronic Current Visit: No Code(s): K21.9 - Gastro- esophageal reflux disease without esophagitis History of Present Illness Date of Service: 12/02/17 Chief Complaint: Recent traumatic injury of the left lower extremity with residual open wound History of Wound: This is a 77-year-old male who was in his normal state of health until September 06, 2017, at which time he sustained an injury to the left lateral calf, the result of a shovel which impaled into his left leg. The patient was rushed to the emergency department on that date, where he was treated by means of wound closure using sutures. Four days later, he had developed a cellulitis, and was admitted to the hospital for treatment. Patient was treated with antibiotics, and subsequently underwent wide surgical debridement of necrotic tissue by Dr. Homero Chin on September 12, 2017. Patient was discharged on September 16, 2017. He was discharged on Cipro 500 mg p.o. twice daily and Augmentin 875 mg p.o. twice daily. At the time of discharge, arrangements were made for the wound VAC to be the means of treatment, which has been changed every several days by home health nursing personnel. The patient had been on Xarelto and treatment for a pulmonary embolism which was diagnosed in January 2017. As result of his injury, the Xarelto has been discontinued. A noninvasive lower extremity arterial study performed in August 2016 revealed no evidence of arterial occlusive disease in the lower extremities. Therefore, there is no reason to believe there is since of any significant arterial occlusive disease. The patient has done well, showing progress with the use of the wound VAC. The patient developed cellulitis in his left lower extremity associated with fever. He was hospitalized at [facility] for approximately 4 days. He was treated initially with intravenous antibiotics consisting of Zosyn, and was subsequently discharged with a prescription for Augmentin, which has been completed. A wound VAC holiday was initiated two weeks ago, and the use of Silver Viola implemented topically since that time. 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) Iron deficiency anemia (Chronic) Pulmonary nodule (Chronic) HLD (hyperlipidemia) (Chronic) Diverticulosis (Chronic) Asthma (Chronic) Hypertension (Chronic) Osteoarthritis (Chronic) History of prostate cancer (Chronic) Allergic rhinitis (Chronic) Rheumatoid arthritis (Chronic) Pleural plaque (Chronic) Macular degeneration (Chronic) GERD (gastroesophageal reflux disease) (Chronic) Surgical History: - - Umbilical hernia repair, appendectomy, bilateral carpal tunnel surgery, Prostatectomy, Cataract surgery, L lens implant, L knee surgery followed by LTKR, L shoulder surgery, left total hip replacement. Allergies/Adverse Reactions: Allergies indomethacin [From Indocin] Allergy (Verified 11/06/17 14:54) Itching indomethacin sodium [From Indocin] Allergy (Verified 11/06/17 14:54) Itching oxycodone HCl [From Percocet] Allergy (Verified 11/06/17 14:54) Itching Home Medications: Ambulatory Orders Medication Instructions Recorded Albuterol Sulfate [Proventil Hfa] 2 puff IH BID 07/13/13 - Family History Sibling Diabetes, Renal Disease, - - Patient's father at the age of 76 with history of colon cancer myocardial infarction. Patient's mother at age of 86 with a history of breast cancer. Maternal Cancer Paternal Cancer Smoking Status: Never smoker Tobacco Use: Non-smoker Review of Systems Constitutional: Denies: Chills, Fever, Weight Change Eyes: Denies: Pain, Vision Change HEENT: Denies: Difficulty Hearing, Difficulty Swallowing, Sinus Congestion Cardiovascular: Denies: Chest Pain, Palpitations Respiratory: Denies: Cough, Shortness of Breath Gastrointestinal: Denies: Diarrhea, Nausea, Vomiting Genitourinary: Denies: Dysuria, Hematuria Endocrine: Denies: Heat/ Cold Intolerance, Polydipsia, Polyuria Hematologic/ Lymphatic: Denies: Easy Bruising, Easy Bleeding - Physical Exam Vital Signs Temp Pulse Resp BP 97.8 F 90 16 135/79 H 12/02/17 10:22 12/02/17 10:22 12/02/17 10:22 12/02/17 10:22 General: Alert, Oriented x3, Cooperative, No apparent distress, Well developed, Well nourished HEENT: Atraumatic, PERRLA, EOMI, Normocephalic Oral: Moist Mucosa Neck: No JVD Lungs: Normal air movement Abdomen: Non-Distended Extremities: No clubbing, No cyanosis, No edema, No Calf Tenderness, - - There is no significant swelling or edema in the lower extremities. The traumatic wound on the left lateral calf continues to improve. It is smaller in size. There is evidence of significant peripheral epithelialization. The base of the wound is pink and healthy in appearance, with active granulation tissue. There is no sign of infection or cellulitis. Skin: No rashes Wound Measurements and Assessment WC - Nurse 1 - General Ulcer Measurement Start: 11/18/17 11:45 Freq: Status: Active Protocol: Activity Type Activity Date Activity User E-Sign Co-Sign Detail Recorded Client Recorded Date Recorded By Document 12/02/17 10:22 DL [id number] 12/02/17 10:30 DL Wound Center Nurse 1 WC - Nurse 2 - General Ulcer CM Notes Start: 11/18/17 11:45 Freq: Status: Active Protocol: Activity Type Activity Date Activity User E-Sign Co-Sign Detail Recorded Client Recorded Date Recorded By Document 12/02/17 10:49 JS [id number] 12/02/17 10:58 JS Wound Center Nurse 2 [Procedure/Treatment] #7 LATERAL LLE- POST OP 09/12/17 Musculoskeletal: No Muscle Wasting Neurological: Cranial nerves II-XII grossly intact, Neuro grossly intact Psych/Mental Status: Normal Affect, Appropriate, Alert and oriented to time, place, person, mood and affect Debridement Note Post-Debridement Measurements/Treatment WC - Nurse 2 - General Ulcer CM Notes Start: 11/18/17 11:45 Freq: Status: Active Protocol: Activity Type Activity Date Activity User E-Sign Co-Sign Detail Recorded Client Recorded Date Recorded By Wound Center Nurse 2 Laterality: Left - Lateral calf Type of Debridement: Excisional debridement Anesthesia Used: 4% Lidocaine Solution Depth: Down to and including healthy tissue, in the subcutaneous layer Percentage of wound debrided: 100 Instrument Used: 5mm curette Severity: Fat Layer Exposed Amount of bleeding with debridement: Mild Bleeding Controlled with: Compression and gauze Patient tolerated procedure well Assessment/Plan Active Problems Open wound (Acute) Open wound of left lower leg (Acute) Traumatic open wound of left lower leg (Acute) Leg swelling (Chronic) Traumatic wound (Acute) Open wound of left lower extremity (Acute) Assessment: This is a 77-year-old male with a traumatic injury to the left lateral calf. The patient appears to be responding well to current measures, which has included the use of Silver Viola topically for the last 2 weeks. Plan: We will continue the use of Silver Viola. This will be applied every other day. Patient has shown significant progress. Patient will return in 2 weeks for reassessment. Intake of a well-balanced and nutritious diet has been advised. Patient has been advised to elevate his lower extremities, to minimize swelling and edema. The patient is not a smoker. Influenza vaccine was not administered today. Patient stands 5 feet 4 inches tall. He weighs 210 pounds. His BMI is 36.0, which places him in a class II category. Weight loss has been recommended, with collaboration with his primary care physician. 12/02/17 1115 <Electronically signed by Oz Cooper MD> Date Oz Cooper MD CC: Signed WOUND CTR HISTORY Observed: 11/25/2017 Status: F Source: [facility] 10:46 AM [facility] [place] REPOSITORY [facility] [address] [place] [id number] [facility] History AND Physical 11/25/17 1040 MR#: [id number] Acct: [id number] Name: CARISSA YIP Rep #: [id number] : 1940 77 From: Oz Cooper MD PCP: aLmbert Larios MD Status: REG RCR Y Location: WC (1) Obesity Status: Chronic Current Visit: No Code(s): E66.9 - Obesity, unspecified (2) Open wound Status: Acute Current Visit: Yes Code(s): T14.8 - Other injury of unspecified body region (3) Open wound of left lower leg Status: Acute Current Visit: Yes Qualifiers: Encounter type: subsequent encounter Code(s): S81.802A - Unspecified open wound, left lower leg, initial encounter (4) Traumatic open wound of left lower leg Status: Acute Current Visit: Yes Qualifiers: Encounter type: subsequent encounter Code(s): S81.802A - Unspecified open wound, left lower leg, initial encounter (5) Leg swelling Status: Chronic Current Visit: Yes Code(s): M79.89 - Other specified soft tissue disorders (6) Traumatic wound Status: Acute Current Visit: Yes (7) Open wound of left lower extremity Status: Acute Current Visit: Yes Qualifiers: Encounter type: subsequent encounter Code(s): S81.802A - Unspecified open wound, left lower leg, initial encounter (8) History of pulmonary embolism Status: Chronic Current Visit: No Code(s): Z86.711 - Personal history of pulmonary embolism (9) 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 Current Visit: No Code(s): L97.929 - Non- pressure chronic ulcer of unspecified part of left lower leg with unspecified severity; L08.9 - Local infection of the skin and subcutaneous tissue, unspecified (10) Iron deficiency anemia Status: Chronic Current Visit: No Code(s): D50.9 - Iron deficiency anemia, unspecified (11) Pulmonary nodule Status: Chronic Current Visit: No Code(s): R91.1 - Solitary pulmonary nodule (12) HLD (hyperlipidemia) Status: Chronic Current Visit: No Code(s): E78.5 - Hyperlipidemia, unspecified (13) Diverticulosis Status: Chronic Current Visit: No Code(s): K57.90 - Diverticulosis of intestine, part unspecified, without perforation or abscess without bleeding (14) Asthma Status: Chronic Current Visit: No Code(s): J45.909 - Unspecified asthma, uncomplicated (15) Hypertension Status: Chronic Current Visit: No Qualifiers: Code(s): I10 - Essential (primary) hypertension (16) Osteoarthritis Status: Chronic Current Visit: No (17) History of prostate cancer Status: Chronic Current Visit: No Code(s): Z85.46 - Personal history of malignant neoplasm of prostate (18) Allergic rhinitis Status: Chronic Current Visit: No Code(s): J30.9 - Allergic rhinitis, unspecified (19) Rheumatoid arthritis Status: Chronic Current Visit: No Code(s): M06.9 - Rheumatoid arthritis, unspecified (20) Pleural plaque Status: Chronic Current Visit: No Code(s): J92.9 - Pleural plaque without asbestos (21) Macular degeneration Status: Chronic Current Visit: No Code(s): H35.30 - Unspecified macular degeneration (22) GERD (gastroesophageal reflux disease) Status: Chronic Current Visit: No Code(s): K21.9 - Gastro- esophageal reflux disease without esophagitis History of Present Illness Date of Service: 11/25/17 Chief Complaint: Recent traumatic injury of the left lower extremity with residual open wound History of Wound: This is a 77-year-old male who was in his normal state of health until September 06, 2017, at which time he sustained an injury to the left lateral calf, the result of a shovel which impaled into his left leg. The patient was rushed to the emergency department on that date, where he was treated by means of wound closure using sutures. Four days later, he had developed a cellulitis, and was admitted to the hospital for treatment. Patient was treated with antibiotics, and subsequently underwent wide surgical debridement of necrotic tissue by Dr. Homero Chin on September 12, 2017. Patient was discharged on September 16, 2017. He was discharged on Cipro 500 mg p.o. twice daily and Augmentin 875 mg p.o. twice daily. At the time of discharge, arrangements were made for the wound VAC to be the means of treatment, which has been changed every several days by home health nursing personnel. The patient had been on Xarelto and treatment for a pulmonary embolism which was diagnosed in January 2017. As result of his injury, the Xarelto has been discontinued. A noninvasive lower extremity arterial study performed in August 2016 revealed no evidence of arterial occlusive disease in the lower extremities. Therefore, there is no reason to believe there is since of any significant arterial occlusive disease. The patient has done well, showing progress with the use of the wound VAC. The patient developed cellulitis in his left lower extremity associated with fever. He was hospitalized at [facility] for approximately 4 days. He was treated initially with intravenous antibiotics consisting of Zosyn, and was subsequently discharged with a prescription for Augmentin, which has been completed. A wound VAC holiday was initiated last week, and the use of Silver Viola implemented topically since that time. 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) Iron deficiency anemia (Chronic) Pulmonary nodule (Chronic) HLD (hyperlipidemia) (Chronic) Diverticulosis (Chronic) Asthma (Chronic) Hypertension (Chronic) Osteoarthritis (Chronic) History of prostate cancer (Chronic) Allergic rhinitis (Chronic) Rheumatoid arthritis (Chronic) Pleural plaque (Chronic) Macular degeneration (Chronic) GERD (gastroesophageal reflux disease) (Chronic) Surgical History: - - Umbilical hernia repair, appendectomy, bilateral carpal tunnel surgery, Prostatectomy, Cataract surgery, L lens implant, L knee surgery followed by LTKR, L shoulder surgery, left total hip replacement. Allergies/Adverse Reactions: Allergies indomethacin [From Indocin] Allergy (Verified 11/06/17 14:54) Itching indomethacin sodium [From Indocin] Allergy (Verified 11/06/17 14:54) Itching oxycodone HCl [From Percocet] Allergy (Verified 11/06/17 14:54) Itching Home Medications: Ambulatory Orders Medication Instructions Recorded Albuterol Sulfate [Proventil Hfa] 2 puff IH BID 07/13/13 - Family History Sibling Diabetes, Renal Disease, - - Patient's father at the age of 76 with history of colon cancer myocardial infarction. Patient's mother at age of 86 with a history of breast cancer. Maternal Cancer Paternal Cancer Smoking Status: Never smoker Tobacco Use: Non-smoker Review of Systems Constitutional: Denies: Chills, Fever, Weight Change Eyes: Denies: Pain, Vision Change HEENT: Denies: Difficulty Hearing, Difficulty Swallowing, Sinus Congestion Cardiovascular: Denies: Chest Pain, Palpitations Respiratory: Denies: Cough, Shortness of Breath Gastrointestinal: Denies: Diarrhea, Nausea, Vomiting Genitourinary: Denies: Dysuria, Hematuria Endocrine: Denies: Heat/ Cold Intolerance, Polydipsia, Polyuria Hematologic/ Lymphatic: Denies: Easy Bruising, Easy Bleeding - Physical Exam Vital Signs Temp Pulse Resp BP 97.8 F 113 H 18 145/82 H 11/25/17 09:59 11/25/17 09:59 11/25/17 09:59 11/25/17 09:59 General: Alert, Oriented x3, Cooperative, No apparent distress, Well developed, Well nourished HEENT: Atraumatic, PERRLA, EOMI, Normocephalic Oral: Moist Mucosa Neck: No JVD Lungs: Normal air movement Abdomen: Non-Distended Extremities: No clubbing, No cyanosis, No edema, No Calf Tenderness, - - There is no significant swelling or edema in the left lower extremity. The traumatic wound on the left lateral calf continues to diminish in size. Dimensions are documented elsewhere. The base of the wound is pink and healthy, with active granulation tissue. There is evidence of peripheral epithelialization. The wound has clearly decreased significantly in size. There is no sign of infection or cellulitis. Skin: No rashes Wound Measurements and Assessment - Nurse 1 - General Ulcer Measurement Start: 11/18/17 11:45 Freq: Status: Active Protocol: Activity Type Activity Date Activity User E-Sign Co-Sign Detail Recorded Client Recorded Date Recorded By Document 11/25/17 09:59 DC [id number] 11/25/17 10:02 DC Wound Center Nurse 1 [Ulcer Assessment] #7 LATERAL LLE- POST OP 09/12/17 -Combined with other wound No -Current Size (cm) - Length 20.6 - Nurse 2 - General Ulcer CM Notes Start: 11/18/17 11:45 Freq: Status: Active Protocol: Activity Type Activity Date Activity User E-Sign Co-Sign Detail Recorded Client Recorded Date Recorded By Document 11/25/17 10:33 [id number] 11/25/17 10:34 Wound Center Nurse 2 Musculoskeletal: No Muscle Wasting Neurological: Cranial nerves II-XII grossly intact, Neuro grossly intact Psych/Mental Status: Normal Affect, Appropriate, Alert and oriented to time, place, person, mood and affect Debridement Note Post-Debridement Measurements/Treatment - Nurse 2 - General Ulcer CM Notes Start: 11/18/17 11:45 Freq: Status: Active Protocol: Activity Type Activity Date Activity User E-Sign Co-Sign Detail Wound Center Nurse 2 #7 LATERAL LLE- POST OP 09/12/17 Laterality: Left - Lateral calf Type of Debridement: Excisional debridement Anesthesia Used: 4% Lidocaine Solution Depth: Down to and including healthy tissue, in the subcutaneous layer Percentage of wound debrided: 100 Instrument Used: 5mm curette Severity: Fat Layer Exposed Amount of bleeding with debridement: Mild Bleeding Controlled with: Compression and gauze Patient tolerated procedure well Assessment/Plan Active Problems Open wound (Acute) Open wound of left lower leg (Acute) Traumatic open wound of left lower leg (Acute) Leg swelling (Chronic) Traumatic wound (Acute) Open wound of left lower extremity (Acute) Assessment: This is a 77-year-old male with a traumatic injury to the left lateral calf. The patient appears to be responding well to the use of the wound VAC, which will be continued. It has been noted that the patient was recently hospitalized for 4 days and treatment for cellulitis in the left lower extremity related to his traumatic wound. He has responded well to inpatient management, and his cellulitis has resolved. Due to excoriations surrounding the wound noted last week, we have been using Silver Viola topically, with good results. We initiated a wound VAC holiday. Plan: We are to continue the Wound VAC holiday for 1 more week. We will continue the use of Silver Viola. This will be applied every other day. He will be covered with gauze, and held in place with Isaak wrap. In this way, we can avoid the use of adhesives completely. Patient has shown significant progress. Patient will return in 1 week for reassessment. Intake of a well-balanced and nutritious diet has been advised. Patient has been advised to elevate his lower extremities, to minimize swelling and edema. The patient is not a smoker. Influenza vaccine was not administered today. Patient stands 5 feet 4 inches tall. He weighs 210 pounds. His BMI is 36.0, which places him in a class II category. Weight loss has been recommended, with collaboration with his primary care physician. 11/25/17 1046 <Electronically signed by Oz Cooper MD> Date Oz Cooper MD CC: Signed PROGRESS Observed: 11/18/2017 Status: COMPLETED Source: [place] 3:26 PM [facility] REPOSITORY O ID: [id number] Author: Reg Verma Service: (none) Author Type: Physician Type: Progress Notes Filed: 11/18/2017 5:34 PM Note Text: PERTINENT CARDIAC HISTORY Pulmonary hypertension - multifactorial Chronic asthma HTN HL Pulmonary embolism 02/02 ILD ADHERENCE TO GUIDELINES ISAAK-I or ARB for HF with prior LVEF<40 (NQF 0081) - N/A ASA or Plavix for ASHD (NQF 0067) - N/A Beta birgit for ASHD with prior ND or prior LVEF<40 (NQF 0070) - N/A Beta birgit for HF with prior LVEF<40 (NQF 0083) - N/A ISAAK-I or ARB for ASHD with DM or prior LVEF<40 (NQF 0066) - N/A Statin therapy for ASHD or FHL or DM - N/A BMI documented and plan if >25 (NQ 0421) - lifestyle recommendation form Tobacco use screening and referral ([facility] 0028) - lifestyle recommendation form Recommendation for whole food, plant based diet - lifestyle recommendation form CLINICAL IMPRESSION/PLAN: Carissa Yip is doing well. There is no evidence of recurrent pulmonary hypertension or right ventricular strain. I've advised him to continue his present medication. He is at significant risk of trauma from falls. He is working with Dr. Montalvo to determine whether he needs to be on chronic anticoagulation. I've asked him to monitor vital signs, taken before his bronchodilator therapy, and contact me. He may be a candidate for rate slowing calcium birgit if he continues to have baseline tachycardia. It is unlikely that he would tolerate a beta birgit. I will see him in 8 months or as needed. Written and verbal health teaching given to patient, patient verbalizes understanding and agrees with treatment plan. DIAGNOSIS FOR VISIT: Hypertension HISTORY OF PRESENT ILLNESS Carissa Yip returns for follow-up of his hypertension and history of pulmonary embolism. He is no longer taking Xarelto. He is being followed closely for possible hypercoagulable state. He had a fall in July with significant injury to his leg requiring 48 stitches. This is slowly healing. He denies chest discomfort. He's had no orthopnea. Exercise tolerance has improved. He has had minimal edema. He denies syncope, palpitations, TIAs, amaurosis and claudication ALLERGIES: ALLERGIES Allergen Reactions - Indocin [Indomethac* Other: See Comments Wheezing, can take naprosyn - Percocet [Oxycodone* Itching - Seasonal Allergies Other: See Comments Cat, Goats, Dust mites, molds, trees, grasses, weed, ragweed CURRENT OUTPATIENT MEDICATIONS: SPIRIVA WITH HANDIHALER 18 mcg inhalation capsule inhale the contents of one capsule in the handihaler once daily fluticasone (FLONASE) 50 mcg/actuation nasal spray instill 2 sprays into each nostril twice a day sertraline (ZOLOFT) 100 mg tablet Take 1.5 tablets by mouth once daily. montelukast (SINGULAIR) 10 mg tablet Take 1 tablet by mouth daily at bedtime. nitroglycerin sublingual (NITROQUICK) 0.4 mg SL tablet Dissolve 1 tablet under the tongue every 5 minutes as needed for Chest Pain. guaiFENesin (MUCINEX) 600 mg 12 hr tablet Take 1 tablet by mouth twice daily. ADVAIR HFA 230-21 mcg/actuation inhaler take 2 inhalations by mouth twice a day Rinse mouth after use omeprazole (PRILOSEC) 20 mg capsule Take 1 capsule by mouth daily before breakfast. 1/2 hr before meal. lisinopril (ZESTRIL, PRINIVIL) 20 mg tablet Take 1 tablet by mouth once daily. atorvastatin (LIPITOR) 10 mg tablet take 1 tablet by mouth at bedtime VENTOLIN HFA 90 mcg/actuation inhaler inhale 2 puffs every 4 hours if needed ipratropium-albuterol (DUONEB) 0.5 mg-3 mg(2.5 mg base)/3 mL nebu Inhale 3 mL as instructed four times daily as needed. by nebulizer over 5 to 15 minutes. EPINEPHrine (EPIPEN) 0.3 mg/0.3 mL auto-injector Inject 0.3 mL intramuscularly as needed. albuterol HFA (PROVENTIL HFA) 90 mcg/actuation inhaler Inhale 2 Puffs as instructed. polyethylene glycol 3350 (MIRALAX, GLYCOLAX) 17 gram/dose powder Take 17 g by mouth once daily. Take one (1) capful in 8oz of liquid each day. ferrous sulfate 325 mg (65 mg iron) tablet Take one(1) tablet two(2) times daily. ipratropium (ATROVENT) 0.02 % nebulizer solution 500 mcg (one ampule) nebulized four times a day as needed. Vitamin A-Vit C-Vit E-Zinc-Cu (OCUVITE PRESERVISION) ORAL Tab Take one(1) tablet two(2) times daily. methylPREDNISolone (MEDROL, DONNA,) 4 mg Dose-Pack Follow dosing instructions, take with food. amoxicillin-clavulanic acid (AUGMENTIN) 875-125 mg per tablet Take 2 tablets by mouth twice daily. furosemide (LASIX) 40 mg tablet Take 1 tablet by mouth once daily for 7 days. leflunomide (ARAVA) 10 mg tablet Take 10 mg by mouth once daily. nystatin-triamcinolone (MYCOLOG II) cream Apply 1 application to affected area twice daily as needed. Genital rash. azelastine (ASTELIN,ASTEPRO) 0.1% nasal spray instill 2 sprays into each nostril twice a day COMPOUNDED PRESCRIPTION Polypodium Leucotomos extract (Daily Defense). Take 2 capsules once a day. 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 PHYSICAL EXAMINATION: VITAL SIGNS: BP 132/87 Pulse 108 Wt 199 lb 6.4 oz (90.4kg) Chest: Clear to percussion and auscultation. Trachea is midline. Air entry is equal. Cardiac: Regular rhythm. S1 and S2 are normal. PMI is nondisplaced. There is a soft systolic ejection murmur. Carotids are brisk without bruits. JVP is less than 10 cm. Abdomen: Soft and nontender. There are no pulsatile masses or bruits. No liver enlargement. Bowel sounds are active. Extremities: Trace edema. He is wearing support stockings. Pulses are intact and symmetrical. Recent labs were reviewed. Renal function is stable. EKG shows sinus tachycardia and is otherwise within normal limits. There is no significant change from 01/14/17. Electronically Signed: Reg Verma MD November 18, 2017 3:26 PM CC: Lambert Larios MD CNOV Observed: 11/18/2017 Status: COMPLETED Source: [place] 3:00 PM [facility] REPOSITORY Office Visit (CAWSTR) CARISSA YIP ([id number]) 1940 M Date Time Provider Department 11/18/17 3:00 PM REG VERMATR During your visit today, we recorded the following information about you: Pulse Blood pressure Weight 108/minute 132/87 90.4 kg Reg Verma MD 11/18/2017 5:34 PM Signed PERTINENT CARDIAC HISTORY Pulmonary hypertension - multifactorial Chronic asthma HTN HL Pulmonary embolism 02/02 ILD ADHERENCE TO GUIDELINES ISAAK-I or ARB for HF with prior LVEF<40 (NQF 0081) - N/A ASA or Plavix for ASHD (NQF 0067) - N/A Beta birgit for ASHD with prior ND or prior LVEF<40 (NQF 0070) - N/A Beta birgit for HF with prior LVEF<40 (NQF 0083) - N/A ISAAK-I or ARB for ASHD with DM or prior LVEF<40 (NQF 0066) - N/A Statin therapy for ASHD or FHL or DM - N/A BMI documented and plan if >25 (NQF 0421) - lifestyle recommendation form Tobacco use screening and referral (NQF 0028) - lifestyle recommendation form Recommendation for whole food, plant based diet - lifestyle recommendation form CLINICAL IMPRESSION/PLAN: Carissa Yip is doing well. There is no evidence of recurrent pulmonary hypertension or right ventricular strain. I've advised him to continue his present medication. He is at significant risk of trauma from falls. He is working with Dr. Montalvo to determine whether he needs to be on chronic anticoagulation. I've asked him to monitor vital signs, taken before his bronchodilator therapy, and contact me. He may be a candidate for rate slowing calcium birgit if he continues to have baseline tachycardia. It is unlikely that he would tolerate a beta birgit. I will see him in 8 months or as needed. Written and verbal health teaching given to patient, patient verbalizes understanding and agrees with treatment plan. DIAGNOSIS FOR VISIT: Hypertension HISTORY OF PRESENT ILLNESS Carissa Yip returns for follow-up of his hypertension and history of pulmonary embolism. He is no longer taking Xarelto. He is being followed closely for possible hypercoagulable state. He had a fall in July with significant injury to his leg requiring 48 stitches. This is slowly healing. He denies chest discomfort. He's had no orthopnea. Exercise tolerance has improved. He has had minimal edema. He denies syncope, palpitations, TIAs, amaurosis and claudication ALLERGIES: ALLERGIES Allergen Reactions - Indocin [Indomethac* Other: See Comments Wheezing, can take naprosyn - Percocet [Oxycodone* Itching - Seasonal Allergies Other: See Comments Cat, Goats, Dust mites, molds, trees, grasses, weed, ragweed CURRENT OUTPATIENT MEDICATIONS: SPIRIVA WITH HANDIHALER 18 mcg inhalation capsule inhale the contents of one capsule in the handihaler once daily fluticasone (FLONASE) 50 mcg/actuation nasal spray instill 2 sprays into each nostril twice a day sertraline (ZOLOFT) 100 mg tablet Take 1.5 tablets by mouth once daily. montelukast (SINGULAIR) 10 mg tablet Take 1 tablet by mouth daily at bedtime. nitroglycerin sublingual (NITROQUICK) 0.4 mg SL tablet Dissolve 1 tablet under the tongue every 5 minutes as needed for Chest Pain. guaiFENesin (MUCINEX) 600 mg 12 hr tablet Take 1 tablet by mouth twice daily. ADVAIR HFA 230-21 mcg/actuation inhaler take 2 inhalations by mouth twice a day Rinse mouth after use omeprazole (PRILOSEC) 20 mg capsule Take 1 capsule by mouth daily before breakfast. 1/2 hr before meal. lisinopril (ZESTRIL, PRINIVIL) 20 mg tablet Take 1 tablet by mouth once daily. atorvastatin (LIPITOR) 10 mg tablet take 1 tablet by mouth at bedtime VENTOLIN HFA 90 mcg/actuation inhaler inhale 2 puffs every 4 hours if needed ipratropium-albuterol (DUONEB) 0.5 mg-3 mg(2.5 mg base)/3 mL nebu Inhale 3 mL as instructed four times daily as needed. by nebulizer over 5 to 15 minutes. EPINEPHrine (EPIPEN) 0.3 mg/0.3 mL auto-injector Inject 0.3 mL intramuscularly as needed. albuterol HFA (PROVENTIL HFA) 90 mcg/actuation inhaler Inhale 2 Puffs as instructed. polyethylene glycol 3350 (MIRALAX, GLYCOLAX) 17 gram/dose powder Take 17 g by mouth once daily. Take one (1) capful in 8oz of liquid each day. ferrous sulfate 325 mg (65 mg iron) tablet Take one(1) tablet two(2) times daily. ipratropium (ATROVENT) 0.02 % nebulizer solution 500 mcg (one ampule) nebulized four times a day as needed. Vitamin A-Vit C-Vit E-Zinc-Cu (OCUVITE PRESERVISION) ORAL Tab Take one(1) tablet two(2) times daily. methylPREDNISolone (MEDROL, DONNA,) 4 mg Dose-Pack Follow dosing instructions, take with food. amoxicillin-clavulanic acid (AUGMENTIN) 875-125 mg per tablet Take 2 tablets by mouth twice daily. furosemide (LASIX) 40 mg tablet Take 1 tablet by mouth once daily for 7 days. leflunomide (ARAVA) 10 mg tablet Take 10 mg by mouth once daily. nystatin-triamcinolone (MYCOLOG II) cream Apply 1 application to affected area twice daily as needed. Genital rash. azelastine (ASTELIN,ASTEPRO) 0.1% nasal spray instill 2 sprays into each nostril twice a day COMPOUNDED PRESCRIPTION Polypodium Leucotomos extract (Daily Defense). Take 2 capsules once a day. 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 PHYSICAL EXAMINATION: VITAL SIGNS: BP 132/87 Pulse 108 Wt 199 lb 6.4 oz (90.4kg) Chest: Clear to percussion and auscultation. Trachea is midline. Air entry is equal. Cardiac: Regular rhythm. S1 and S2 are normal. PMI is nondisplaced. There is a soft systolic ejection murmur. Carotids are brisk without bruits. JVP is less than 10 cm. Abdomen: Soft and nontender. There are no pulsatile masses or bruits. No liver enlargement. Bowel sounds are active. Extremities: Trace edema. He is wearing support stockings. Pulses are intact and symmetrical. Recent labs were reviewed. Renal function is stable. EKG shows sinus tachycardia and is otherwise within normal limits. There is no significant change from 01/14/17. Electronically Signed: Reg Verma MD November 18, 2017 3:26 PM CC: MD Reg Rao MD 11/18/2017 3:26 PM Signed LIFESTYLE CHANGE A healthy lifestyle is the most important component of your overall treatment plan. Please give serious thought to the following areas and commit to making fpc changes. EAT A WHOLE FOOD, PLANT BASED DIET The nutrition your body gets is more important than the medicine you take. What matters most is the overall way you eat. We encourage you to minimize the use of animal products (which include dairy and all meats except fatty fish) and use whole, unprocessed plant foods to provide your protein, vitamins and other nutrients. We have a lot of information to share with you on this topic. This is not a diet. It is a way of life that you will keep with you. EXERCISE REGULARLY It is not important to spend hours in the gym, lifting weights and perspiring heavily. A total of 2-3 hours per week of aerobic (causing you to be moderately short of breath) exercise is sufficient to improve your health. Talk to us before you begin a new exercise program, if you have heart disease or experience shortness of breath or chest pain. REDUCE STRESS Chronic emotional and physical stress leads to disease. Ways of reducing stress include meditation, visualization, prayer, yoga and other forms of relaxation therapy. Consistency is the ratliff. Find a technique that works for you and do it every day. CULTIVATE RELATIONSHIPS Loneliness and isolation have a major negative impact on health. Seek out others who can love, care for and nurture you. Avoid hurtful relationships. MAINTAIN IDEAL BODY WEIGHT The best way to do this is to do all the things above. Our bodies naturally find the right weight if we keep moving and feed ourselves the right food. If your BMI is greater than 25, we strongly recommend a referral to a weight management program. Please speak to us or your family physician about available programs. AVOID NICOTINE IN ALL FORMS This includes all tobacco products, whether chewed, smoked, vaped, or rubbed on the skin. Smoking cessation programs, which can make use of tobacco substitutes, medications to suppress cravings and behavior management, are available. Please contact your family physician about programs in your area. Referring Provider: REG VERMA [[id number]] Allergies As of Date: 11/18/2017 Noted Allergy Reaction INDOCIN (INDOMETHACIN SODIUM) 04/01/2011 14 - Other: See Comments Comments: Wheezing, can take naprosyn PERCOCET (OXYCODONE-ACETAMINOPHEN)01/08/2005 9 - Itching SEASONAL ALLERGIES 11/12/2012 14 - Other: See Comments Comments: Cat, Goats, Dust mites, molds, trees, grasses, weed, ragweed Date Reviewed: 11/18/2017 Reviewed by: Tomas Prince RN - Fully Assessed Reason for Visit: Recheck [92] Primary Visit Diagnosis:Essential hypertension [I10] Order(s):ECG COMPLETE W INTERPRETATION [ECG01] Order #: [id number] FUTURE Prescriptions as of 11/18/2017 Sig: SPIRIVA WITH HANDIHALER 18 MC* inhale the contents of one ca* FLUTICASONE 50 MCG/ACTUATION * instill 2 sprays into each no* SERTRALINE 100 MG TABLET Take 1.5 tablets by mouth onc* MONTELUKAST 10 MG TABLET Take 1 tablet by mouth daily * NITROGLYCERIN 0.4 MG SUBLINGU* Dissolve 1 tablet under the t* GUAIFENESIN ER 600 MG TABLET,* Take 1 tablet by mouth twice * ADVAIR HFA 230 MCG-21 MCG/ACT* take 2 inhalations by mouth t* OMEPRAZOLE 20 MG CAPSULE,ALEX* Take 1 capsule by mouth daily* LISINOPRIL 20 MG TABLET Take 1 tablet by mouth once d* ATORVASTATIN 10 MG TABLET take 1 tablet by mouth at bed* VENTOLIN HFA 90 MCG/ACTUATION* inhale 2 puffs every 4 hours * IPRATROPIUM-ALBUTEROL 0.5 MG-* Inhale 3 mL as instructed fou* EPINEPHRINE 0.3 MG/0.3 ML INJ* Inject 0.3 mL intramuscularly* ALBUTEROL SULFATE HFA 90 MCG/* Inhale 2 Puffs as instructed. POLYETHYLENE GLYCOL 3350 17 G* Take 17 g by mouth once daily* FERROUS SULFATE 325 MG (65 MG* Take one(1) tablet two(2) link* Patient taking differently: Take 325 mg by mouth twice da* IPRATROPIUM BROMIDE 0.02 % SO* 500 mcg (one ampule) nebulize* PRESERVISION AREDS 7,160 UNIT* Take one(1) tablet two(2) link* METHYLPREDNISOLONE 4 MG TABLE* Follow dosing instructions, t* Patient not taking: Reported on 11/18/2017 AMOXICILLIN 875 MG-POTASSIUM * Take 2 tablets by mouth twice* FUROSEMIDE 40 MG TABLET Take 1 tablet by mouth once d* LEFLUNOMIDE 10 MG TABLET Take 10 mg by mouth once christiaon* NYSTATIN-TRIAMCINOLONE 100,00* Apply 1 application to affect* AZELASTINE 137 MCG (0.1 %) NA* instill 2 sprays into each no* COMPOUNDED PRESCRIPTION Polypodium Leucotomos extract* Patient not taking: Reported on 11/18/2017 Medication notes this encounter FERROUS SULFATE 325 MG (65 MG IRON) TABLET >> Tomas Prince RN 11/18/2017 3:02 PM >> TOMAS PRINCE RN Nov 18, 2017 3:02 PM Problem List As Of Date 11/18/2017 Noted Resolved Asthma [J45.909] 08/25/2017 CHRONIC RHINITIS [J31.0] BPH without obstruction/lower urinary tract sym* ANXIETY STATE NOS [F41.1] 08/05/2014 Depression with anxiety [F41.8] Diverticulosis of colon (without mention of hem* 10/06/2012 ESOPHAGEAL REFLUX [K21.9] Internal hemorrhoids without mention of complic* 08/30/2010 Malignant neoplasm of prostate (HCC) [C61] INVALID FOR*08/05/2014 MACULAR DEGENERATION NOS [H35.30] Other specified iron deficiency anemias [D50.8] INVALID FOR*08/30/2010 Diabetes mellitus type 2, controlled, without c*INVALID FOR* Hyperlipidemia [E78.5] INVALID FOR* Personal history of colonic polyps [Z86.010] INVALID FOR*09/30/2011 More... FAMILY HX COLON CANCER [Z80.0] INVALID FOR*08/25/2017 PULMONARY NODULES [J98.4] INVALID FOR*10/06/2012 More... 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] INVALID FOR* Essential hypertension [I10] INVALID FOR* Generalized osteoarthritis of multiple sites [M*INVALID FOR* Benign neoplasm of rectum and anal canal [D12.8*INVALID FOR*10/06/2012 Benign neoplasm of colon [D12.6] INVALID FOR* Gout [M10.9] INVALID FOR* Venous insufficiency of leg [I87.2] INVALID FOR* Iron deficiency anemia due to chronic blood los*INVALID FOR* Inflammatory polyarthropathy of multiple sites *INVALID FOR* Unsteady gait [R26.81] INVALID FOR* Uncomplicated severe persistent asthma [J45.50] INVALID FOR* Other pulmonary embolism without acute cor pulm*INVALID FOR* Pulmonary hypertension (HCC) [I27.20] INVALID FOR* Memory disturbance [R41.3] INVALID FOR* Obesity, Class I, BMI 30-34.9 E66.9 [E66.9] INVALID FOR* Open wound of left lower extremity [S81.802A] INVALID FOR* 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 Please give serious thought to the following areas and commit to making fpc changes. EAT A WHOLE FOOD, PLANT BASED DIET The nutrition your body gets is more important than the medicine you take. What matters most is the overall way you eat. We encourage you to minimize the use of animal products (which include dairy and all meats except fatty fish) and use whole, unprocessed plant foods to provide your protein, vitamins and other nutrients. We have a lot of information to share with you on this topic. This is not a diet. It is a way of life that you will keep with you. EXERCISE REGULARLY It is not important to spend hours in the gym, lifting weights and perspiring heavily. A total of 2-3 hours per week of aerobic (causing you to be moderately short of breath) exercise is sufficient to improve your health. Talk to us before you begin a new exercise program, if you have heart disease or experience shortness of breath or chest pain. REDUCE STRESS Chronic emotional and physical stress leads to disease. Ways of reducing stress include meditation, visualization, prayer, yoga and other forms of relaxation therapy. Consistency is the ratliff. Find a technique that works for you and do it every day. CULTIVATE RELATIONSHIPS Loneliness and isolation have a major negative impact on health. Seek out others who can love, care for and nurture you. Avoid hurtful relationships. MAINTAIN IDEAL BODY WEIGHT The best way to do this is to do all the things above. Our bodies naturally find the right weight if we keep moving and feed ourselves the right food. If your BMI is greater than 25, we strongly recommend a referral to a weight management program. Please speak to us or your family physician about available programs. AVOID NICOTINE IN ALL FORMS This includes all tobacco products, whether chewed, smoked, vaped, or rubbed on the skin. Smoking cessation programs, which can make use of tobacco substitutes, medications to suppress cravings and behavior management, are available. Please contact your family physician about programs in your area. Encounter Status:Closed by REG VERMA MD on 11/18/17 WOUND CTR HISTORY Observed: 11/18/2017 Status: F Source: [facility] 12:47 PM [facility] [place] REPOSITORY [facility] [address] [place] [address] Wound Ctr History AND Physical 11/18/17 1241 MR#: [id number] Acct: [id number] Name: CARISSA YIP Rep #: [id number] : 1940 77 From: Oz Cooper MD PCP: Lambert Larios MD Status: REG RCR Y Location: WC (1) Obesity Status: Chronic Current Visit: No Code(s): E66.9 - Obesity, unspecified (2) Open wound Status: Acute Current Visit: Yes Code(s): T14.8 - Other injury of unspecified body region (3) Open wound of left lower leg Status: Acute Current Visit: Yes Qualifiers: Encounter type: subsequent encounter Code(s): S81.802A - Unspecified open wound, left lower leg, initial encounter (4) Traumatic open wound of left lower leg Status: Acute Current Visit: Yes Qualifiers: Encounter type: subsequent encounter Code(s): S81.802A - Unspecified open wound, left lower leg, initial encounter (5) Leg swelling Status: Chronic Current Visit: Yes Code(s): M79.89 - Other specified soft tissue disorders (6) Traumatic wound Status: Acute Current Visit: Yes (7) Open wound of left lower extremity Status: Acute Current Visit: Yes Qualifiers: Encounter type: subsequent encounter Code(s): S81.802A - Unspecified open wound, left lower leg, initial encounter (8) Cellulitis of left leg Status: Resolved Current Visit: No Code(s): L03.116 - Cellulitis of left lower limb (9) History of pulmonary embolism Status: Chronic Current Visit: No Code(s): Z86.711 - Personal history of pulmonary embolism (10) 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 Current Visit: No Code(s): L97.929 - Non- pressure chronic ulcer of unspecified part of left lower leg with unspecified severity; L08.9 - Local infection of the skin and subcutaneous tissue, unspecified (11) Iron deficiency anemia Status: Chronic Current Visit: No Code(s): D50.9 - Iron deficiency anemia, unspecified (12) Pulmonary nodule Status: Chronic Current Visit: No Code(s): R91.1 - Solitary pulmonary nodule (13) HLD (hyperlipidemia) Status: Chronic Current Visit: No Code(s): E78.5 - Hyperlipidemia, unspecified (14) Diverticulosis Status: Chronic Current Visit: No Code(s): K57.90 - Diverticulosis of intestine, part unspecified, without perforation or abscess without bleeding (15) Asthma Status: Chronic Current Visit: No Code(s): J45.909 - Unspecified asthma, uncomplicated (16) Hypertension Status: Chronic Current Visit: No Qualifiers: Code(s): I10 - Essential (primary) hypertension (17) Osteoarthritis Status: Chronic Current Visit: No (18) Penetrating injury right leg Status: Resolved Current Visit: No (19) History of prostate cancer Status: Chronic Current Visit: No Code(s): Z85.46 - Personal history of malignant neoplasm of prostate (20) Allergic rhinitis Status: Chronic Current Visit: No Code(s): J30.9 - Allergic rhinitis, unspecified (21) Rheumatoid arthritis Status: Chronic Current Visit: No Code(s): M06.9 - Rheumatoid arthritis, unspecified (22) Pleural plaque Status: Chronic Current Visit: No Code(s): J92.9 - Pleural plaque without asbestos (23) Macular degeneration Status: Chronic Current Visit: No Code(s): H35.30 - Unspecified macular degeneration (24) GERD (gastroesophageal reflux disease) Status: Chronic Current Visit: No Code(s): K21.9 - Gastro- esophageal reflux disease without esophagitis History of Present Illness Date of Service: 11/18/17 Chief Complaint: Recent traumatic injury of the left lower extremity with residual open wound History of Wound: This is a 77-year-old male who was in his normal state of health until September 06, 2017, at which time he sustained an injury to the left lateral calf, the result of a shovel which impaled into his left leg. The patient was rushed to the emergency department on that date, where he was treated by means of wound closure using sutures. Four days later, he had developed a cellulitis, and was admitted to the hospital for treatment. Patient was treated with antibiotics, and subsequently underwent wide surgical debridement of necrotic tissue by Dr. Homero Chin on September 12, 2017. Patient was discharged on September 16, 2017. He was discharged on Cipro 500 mg p.o. twice daily and Augmentin 875 mg p.o. twice daily. At the time of discharge, arrangements were made for the wound VAC to be the means of treatment, which has been changed every several days by home health nursing personnel. The patient had been on Xarelto and treatment for a pulmonary embolism which was diagnosed in January 2017. As result of his injury, the Xarelto has been discontinued. A noninvasive lower extremity arterial study performed in August 2016 revealed no evidence of arterial occlusive disease in the lower extremities. Therefore, there is no reason to believe there is since of any significant arterial occlusive disease. The patient has done well, showing progress with the use of the wound VAC. The patient developed cellulitis in his left lower extremity associated with fever. He was hospitalized at [facility] for approximately 4 days. He was treated initially with intravenous antibiotics consisting of Zosyn, and was subsequently discharged with a prescription for Augmentin, which continues currently. The wound VAC has been re-implemented. 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) Iron deficiency anemia (Chronic) Pulmonary nodule (Chronic) HLD (hyperlipidemia) (Chronic) Diverticulosis (Chronic) Asthma (Chronic) Hypertension (Chronic) Osteoarthritis (Chronic) History of prostate cancer (Chronic) Allergic rhinitis (Chronic) Rheumatoid arthritis (Chronic) Pleural plaque (Chronic) Macular degeneration (Chronic) GERD (gastroesophageal reflux disease) (Chronic) Surgical History: - - Umbilical hernia repair, appendectomy, bilateral carpal tunnel surgery, Prostatectomy, Cataract surgery, L lens implant, L knee surgery followed by LTKR, L shoulder surgery, left total hip replacement. Allergies/Adverse Reactions: Allergies indomethacin [From Indocin] Allergy (Verified 11/06/17 14:54) Itching indomethacin sodium [From Indocin] Allergy (Verified 11/06/17 14:54) Itching oxycodone HCl [From Percocet] Allergy (Verified 11/06/17 14:54) Itching Home Medications: Ambulatory Orders Medication Instructions Recorded Albuterol Sulfate [Proventil Hfa] 2 puff IH BID 07/13/13 - Family History Sibling Diabetes, Renal Disease, - - Patient's father at the age of 76 with history of colon cancer myocardial infarction. Patient's mother at age of 86 with a history of breast cancer. Maternal Cancer Paternal Cancer Smoking Status: Never smoker Tobacco Use: Non-smoker Review of Systems Constitutional: Denies: Chills, Fever, Weight Change Eyes: Denies: Pain, Vision Change HEENT: Denies: Difficulty Hearing, Difficulty Swallowing, Sinus Congestion Cardiovascular: Denies: Chest Pain, Palpitations Respiratory: Denies: Cough, Shortness of Breath Gastrointestinal: Denies: Diarrhea, Nausea, Vomiting Genitourinary: Denies: Dysuria, Hematuria Endocrine: Denies: Heat/ Cold Intolerance, Polydipsia, Polyuria Hematologic/ Lymphatic: Denies: Easy Bruising, Easy Bleeding - Physical Exam Vital Signs Temp Pulse Resp BP 96.8 F L 106 H 18 134/88 H 11/18/17 11:45 11/18/17 11:45 11/18/17 11:45 11/18/17 11:45 General: Alert, Oriented x3, Cooperative, No apparent distress, Well developed, Well nourished HEENT: Atraumatic, PERRLA, EOMI, Normocephalic Oral: Moist Mucosa Neck: No JVD Lungs: Normal air movement Abdomen: Non-Distended Extremities: No clubbing, No cyanosis, No Calf Tenderness, - - Swelling and edema in the lower extremities is well controlled. The traumatic wound on the left lateral calf continues to diminish in size. The wound is pink and healthy in appearance, with active granulation tissue. There is evidence of peripheral epithelialization. There is no sign of infection or cellulitis. However, superficial excoriations are noted adjacent to the wound, likely due to the adhesive from the wound VAC drape. Wound Measurements and Assessment JERRY - Nurse 1 - General Ulcer Measurement Start: 11/18/17 11:45 Freq: Status: Active Protocol: Activity Type Activity Date Activity User E-Sign Co-Sign Detail Recorded Client Recorded Date Recorded By Document 11/18/17 11:45 [id number] 11/18/17 11:53 MAVIS - Nurse 2 - General Ulcer CM Notes Start: 11/18/17 11:45 Freq: Status: Active Protocol: Activity Type Activity Date Activity User E-Sign Co-Sign Detail Recorded Client Recorded Date Recorded By Document 11/18/17 12:31 JODI [id number] 11/18/17 12:32 JODI Wound Center Nurse 2 [Procedure/Treatment] #7 LATERAL LLE- POST OP 09/12/17 -Time 12:31 -Correct Patient Yes -Correct Side, Site, Position Yes -Correct Procedure Yes Neurological: Cranial nerves II-XII grossly intact, Neuro grossly intact Psych/Mental Status: Normal Affect, Appropriate, Alert and oriented to time, place, person, mood and affect Debridement Note Post-Debridement Measurements/Treatment WC - Nurse 2 - General Ulcer CM Notes Start: 11/18/17 11:45 Freq: Status: Active Protocol: Activity Type Activity Date Activity User E-Sign Co-Sign Detail Recorded Client Recorded Date Recorded By Document 11/18/17 12:31 JODI [id number] 11/18/17 12:32 [facility] Nurse 2 #7 LATERAL LLE- POST OP 09/12/17 -Time 12:31 -Correct Patient Yes No debridement was completed today Assessment/Plan Active Problems Open wound (Acute) Open wound of left lower leg (Acute) Traumatic open wound of left lower leg (Acute) Leg swelling (Chronic) Traumatic wound (Acute) Open wound of left lower extremity (Acute) Assessment: This is a 77-year-old male with a traumatic injury to the left lateral calf. The patient appears to be responding well to the use of the wound VAC, which will be continued. It has been noted that the patient was recently hospitalized for 4 days and treatment for cellulitis in the left lower extremity related to his traumatic wound. He has responded well to inpatient management, and his cellulitis appears to be resolved. The patient now has extensive superficial excoriations adjacent to his left lower extremity wound, thought to be due to the adhesive drape from the wound VAC. As result, we will take a wound VAC holiday, and implement the use of Silver Viola. Plan: We are to take a wound VAC holiday given the patient's skin reaction to the wound VAC adhesive drape. We will implement the use of Silver Viola. This will be applied every other day. He will be covered with gauze, and held in place with Isaak wrap. In this way, we can avoid the use of adhesives completely. Patient has shown significant progress. Patient will return in 1 week for reassessment. Intake of a well-balanced and nutritious diet has been advised. Patient has been advised to elevate his lower extremities, to minimize swelling and edema. Continue increasing iron supplements to twice daily daily. We will seek consultation with plastic surgery, Dr. Hinds, for consideration of a split thickness skin graft. Given the large size of the patient's traumatic wound, split thickness skin grafting may offer a more expeditious approach to subsequent healing and discharge. Matters in this regard have been discussed with the patient. The patient is not a smoker. Influenza vaccine was not administered today. Patient stands 5 feet 4 inches tall. He weighs 210 pounds. His BMI is 36.0, which places him in a class II category. Weight loss has been recommended, with collaboration with his primary care physician. 11/18/17 [id number] <Electronically signed by Oz Cooper MD> Date Oz Cooper MD CC: Signed URIC ACID Collected: 11/12/2017 Status: F Source: [place] 11:51 AM [facility] REPOSITORY TYPE CODE TESTS RESULT OUT OF RANGE REFERENCE UNITS LAB URIC 4.0-8.1 mg/dL Uric Acid 8.1 Performed By: #### URIC #### [facility] [address] [place], [place] [address] PROGRESS Observed: 11/12/2017 Status: COMPLETED Source: [place] 11:18 AM [facility] REPOSITORY HNO ID: [id number] Author: Glenna (Petros) Aaron Service: (none) Author Type: Nurse Practitioner Type: Progress Notes Filed: 11/12/2017 12:30 PM Note Text: 11/12/2017 Patient presents with: Transition Of Care: [facility] D/C 11/10/17 cellulitis SUBJECTIVE: This is a 77 year old that is here today for hospital discharge follow up. He was admitted to [facility] from 11/06/17- 11/10/17 for cellulitis. Patient was sent to ER after being seen by Elena Monterroso NP 11/06/17 for infection on leg. He had been treated with a wound vac since August after an injury following with Dr. Cooper at the wound center. He has home health nurses that help to manage the wound vac. He had a fever of up to 102.2. He had finished a course of abx about a week prior. At the ER, temp of 100.4 with HR 107, he was found to have erythema surrounding the wound vac dressing with streaking up the back of thigh. EKG showed ST with isolated t wave inversion in lead III, WBC 9.9, INR 1.1, No acute process on CXR. They initiated the sepsis protocol starting zosyn. Erythema worsened while in the ER and he was admitted. Venous duplex negative for DVT. Blood cultures negative. Wound culture positive for gram positive corynebacterium striatum and streptococcus agalactiae. ID was consulted and recommended Augmentin for home. On day of d/c labs include WBC 5.8, RBC 3.51, HGB 9.7, HCT 30.8, BUN 20, Creat 1.31, GFR 56, NA 138, K+ 4.0. CM followed him and ensured that he was discharged home with order to resume HC with [facility]. He was given a prescription for the Augmentin. He states that he is working on getting an appointment with Dr. Hinds to discuss skin grafting plan. HH is coming to the house 3 times a week and he is going to the wound center once a week. He states that he is overall feeling well except for a painful red left great toe that started 2 days ago. Hard to walk on. He does have a history of gout, but it affected his right great toe. He denies any fever or chills. Wound vac in place, no drainage from the dressing. No pain with palpation. Still slightly swollen, he states that he wears cathryn hose baseline before this injury. Pt and both agree that it is much improved from what it was. PAST MEDICAL HISTORY Diagnosis Date - Anxiety state, unspecified - Benign neoplasm of colon - Chronic rhinitis - Colon polyp 10/2014 - Depressive disorder, not elsewhere classified - Diabetes mellitus type 2, controlled, without complications (HCC) 08/25/2017 - Diverticulosis of colon (without mention of hemorrhage) - Esophageal reflux - Family history of malignant neoplasm of gastrointestinal tract - GENERAL OSTEOARTHROSIS 04/08/2008 - Gout 04/01/2011 - HYPERGLYCEMIA 07/19/2005 - HYPERLIPIDEMIA NEC/NOS 07/19/2005 - HYPERTENSION NOS 09/03/2007 - Hypertrophy of prostate without urinary obstruction and other lower urinary tract symptoms (LUTS) - Impaired fasting blood sugar 07/19/2005 - Internal hemorrhoids without mention of complication - IRON DEFIC ANEMIA NEC 07/19/2005 - Macular degeneration (senile) of retina, unspecified - MALIGN NEOPL PROSTATE 05/23/2005 - Other pulmonary embolism without acute cor pulmonale (HCC) 01/27/2017 - Personal history of colonic polyps - Pulmonary embolism (HCC) - Pulmonary hypertension 01/30/2017 - PULMONARY NODULES 06/03/2006 - Rosacea 02/25/2007 - Skin cancer of face [facility]. - Unspecified asthma(493.90) ALLERGIES Indocin [Indomethacin Sodium]; Percocet [Oxycodone-Acetaminophen]; Seasonal Allergies MEDICATIONS Current Outpatient Prescriptions: fluticasone (FLONASE) 50 mcg/actuation nasal spray instill 2 sprays into each nostril twice a day sertraline (ZOLOFT) 100 mg tablet Take 1.5 tablets by mouth once daily. montelukast (SINGULAIR) 10 mg tablet Take 1 tablet by mouth daily at bedtime. nitroglycerin sublingual (NITROQUICK) 0.4 mg SL tablet Dissolve 1 tablet under the tongue every 5 minutes as needed for Chest Pain. guaiFENesin (MUCINEX) 600 mg 12 hr tablet Take 1 tablet by mouth twice daily. ADVAIR HFA 230-21 mcg/actuation inhaler take 2 inhalations by mouth twice a day Rinse mouth after use omeprazole (PRILOSEC) 20 mg capsule Take 1 capsule by mouth daily before breakfast. 1/2 hr before meal. lisinopril (ZESTRIL, PRINIVIL) 20 mg tablet Take 1 tablet by mouth once daily. atorvastatin (LIPITOR) 10 mg tablet take 1 tablet by mouth at bedtime VENTOLIN HFA 90 mcg/actuation inhaler inhale 2 puffs every 4 hours if needed SPIRIVA WITH HANDIHALER 18 mcg inhalation capsule inhale the contents of one capsule in the handihaler once daily nystatin-triamcinolone (MYCOLOG II) cream Apply 1 application to affected area twice daily as needed. Genital rash. azelastine (ASTELIN,ASTEPRO) 0.1% nasal spray instill 2 sprays into each nostril twice a day ipratropium-albuterol (DUONEB) 0.5 mg-3 mg(2.5 mg base)/3 mL nebu Inhale 3 mL as instructed four times daily as needed. by nebulizer over 5 to 15 minutes. EPINEPHrine (EPIPEN) 0.3 mg/0.3 mL auto-injector Inject 0.3 mL intramuscularly as needed. albuterol HFA (PROVENTIL HFA) 90 mcg/actuation inhaler Inhale 2 Puffs as instructed. polyethylene glycol 3350 (MIRALAX, GLYCOLAX) 17 gram/dose powder Take 17 g by mouth once daily. Take one (1) capful in 8oz of liquid each day. ferrous sulfate 325 mg (65 mg iron) tablet Take one(1) tablet two(2) times daily. (Patient taking differently: Take 325 mg by mouth once daily. Take one(1) tablet two(2) times daily. ) ipratropium (ATROVENT) 0.02 % nebulizer solution 500 mcg (one ampule) nebulized four times a day as needed. Vitamin A-Vit C-Vit E-Zinc-Cu (OCUVITE PRESERVISION) ORAL Tab Take one(1) tablet two(2) times daily. amoxicillin-clavulanic acid (AUGMENTIN) 875-125 mg per tablet Take 2 tablets by mouth twice daily. furosemide (LASIX) 40 mg tablet Take 1 tablet by mouth once daily for 7 days. leflunomide (ARAVA) 10 mg tablet Take 10 mg by mouth once daily. COMPOUNDED PRESCRIPTION Polypodium Leucotomos extract (Daily Defense). Take 2 capsules once a day. 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 No current facility-administered medications for this visit. Medications and allergies reviewed by this provider. 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 Social History Main Topics Smoking status: Never Smoker Smokeless tobacco: Never Used Comment: Father smoked in childhood home. No household smoke exposure since. 05/2014. Alcohol use: No Drug use: No Social History Narrative 2017: Lives with spouse w/ depression. No longer driving since 2013 due to macular degeneration. drives. Ambulatory with cane. Dyspnea on moderate exertion. REVIEW OF SYSTEMS GENERAL: No weight loss, malaise or fevers RESPIRATORY: Negative for cough, hemoptysis, wheezing, COPD, dyspnea or shortness of breath, no increase from baseline COPD, using inhalers as prescribed CARDIOVASCULAR: Negative for chest pain, leg swelling, hypertension, CHF or palpitations, + for bilateral foot swelling, has not been wearing cathryn hose SKIN: See HPI HEMATOLOGY/LYMPHOLOGY: Negative for prolonged bleeding, bruising easily or swollen nodes, following with Dr. Velázquez with PE history now off xarelto OBJECTIVE: BP 118/66 (BP Site: Left Arm, BP Position: Sitting, BP Cuff Size: Large Adult) Pulse 97 Temp 37 ?C (98.6 ?F) (Right Tympanic) Resp 16 Wt 92.5 kg (204 lb) SpO2 98% BMI 33.18 kg/m? . Vital signs reviewed by this provider. PHYSICAL EXAMINATION: General appearance: Well appearing, alert, in no acute distress, well-hydrated, well nourished., Obese Skin: wound vac in place to left lower leg. Removed ISAAK to see that dressing is clean dry and intact, there is slight pink erythema to the edges of the wound, no heat to touch. Slight edema. nontender. Left great toe is erythematous, tender to touch and warm to touch on the proximal joint. Lungs: Lungs clear to auscultation. No rhonchi, rales, Positive findings: mild wheezing Heart: RRR without murmur, gallop, or rubs. No ectopy Extremities: Edema: Nonpitting bilaterally to the feet ASSESSMENT/PLAN: 1. Great toe pain, left - ICD9: 729.5, ICD10: M79.675 (primary diagnosis) - will await blood work results, differential includes gout and since on same extremity as the infection would like pt to monitor closely for SANDS of infection - if elevated uric acid, will call in script - URIC ACID BLOOD 2. Cellulitis of skin - ICD9: 682.9, ICD10: L03.90 - improved - Continue treatment with Augmentin 500 mg Q8hrs - Check labs CBC with Diff in 3 weeks - No lymphangetic streaking, this was defined for patient to watch for and to seek medical care immediately if appears - Continue with HH and wound center and follow their recommendations - reminded pt of SANDS of infection and stressed the importance of being seen sooner rather than later for treatment - discussed DM diagnosis and encouraged healthy diet to promote healing and avoid potential complications 3. Hospital discharge follow-up - ICD9: V67.59, ICD10: Z09 See above - recheck labs in 3 weeks - CBC + DIFF - COMP METABOLIC PANEL Glenna Walker APRN.SIGNAL OPERATOR CNOV Observed: 11/12/2017 Status: COMPLETED Source: [place] 11:00 AM [facility] REPOSITORY Office Visit (FAMPWS) PHICARISSA ([id number]) 1940 M Date Time Provider Department 11/12/17 11:00 AM GLENNA WALKER) DIXIE During your visit today, we recorded the following information about you: Temperature Pulse Respiration Blood pressure 98.6 degrees 97/minute 16/minute 118/66 Weight 92.5 kg Abhilash Matute Ma 11/12/2017 12:30 PM Signed Transitional Care Management Progress Note The patients TCM visit was performed within the 7 days of discharge. Discharge Date: 11/10/17 Date of Admission: 11/06/17 - Primary Discharge Diagnosis Strep agalactiae/gram-positive rods acute left leg cellulitis in context of history of penetrating injury of the left leg with chronic nonhealing wounds. 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) Iron deficiency anemia (Chronic) Pulmonary nodule (Chronic) HLD (hyperlipidemia) (Chronic) Diverticulosis (Chronic) Asthma (Chronic) Hypertension (Chronic) Osteoarthritis (Chronic) Penetrating injury right leg (Chronic) History of prostate cancer (Chronic) Allergic rhinitis (Chronic) Rheumatoid arthritis (Chronic) Pleural plaque (Chronic) Macular degeneration (Chronic) GERD (gastroesophageal reflux disease) (Chronic) Hospital Course and Treatment Imaging Results: Clinical Impression(s) from Imaging Studies Chest X-Ray 11/06/17 17:00 IMPRESSION: Mild interstitial thickening in the lower lobes with chronic calcific pleural plaquing. No acute cardiopulmonary pathology Operations: None Procedures: None Summary of Care Provided: The patient is a 77 year old M admitted because of left leg pains and fever and he was found to have acute left leg cellulitis. He had a penetrating injury to the left leg was complicated by infection, abscess and cellulitis, underwent incision, wide debridement on September 12, 2017 and insertion of wound VAC on September 17, 2017. On admission, patient was febrile and had local erythema around the chronic left leg wound. He was treated with IV Zosyn and IV fluids. There was no evidence of sepsis or severe sepsis. Venous Doppler of both lower extremities revealed no evidence of acute DVT. His routine blood work was unremarkable. With IV antibiotic therapy, local erythema of the left leg improved. On the day of discharge, the wound VAC taken off and there was good formation of granulation tissue on the wound of the left leg with good blood supply. Blood culture showed no growth in 48 hours. Wound culture revealed Streptococcus agalactiae and gram-positive rods. Infectious disease consulted and recommended to discharge patient on Augmentin for 1 week of treatment. Patient has been following up with the wound care center as outpatient and he was referred to as outpatient for skin graft. Patient discharged home in a stable medical condition, discharged on Augmentin twice daily for 1 week, continued on his chronic home medication without any changes, plan to follow-up with PCP in 1 week, follow-up with Dr. Hinds for skin graft as outpatient in the near future. Discharge Activity: Return to Normal Activity Weight Bearing Status: Weight bearing as tolerated Medications to take at Discharge Albuterol Sulfate [Proventil Hfa] 2 puff IH BID 07/13/13 Azelastine HCl [Astelin] 2 spray NASAL BID 07/13/13 Fluticasone 0.05% [Flonase Nasal [place]] 2 spray NASAL BID 07/13/13 Montelukast [Singulair] 10 mg PO QHS 07/13/13 Sertraline HCl [Zoloft] 150 mg PO DAILY 07/13/13 Tiotropium [place] [Spiriva 18 MCG] 1 puff INHALATION DAILY 07/13/13 Atorvastatin Calcium [Lipitor] 10 mg PO QHS 10/26/14 Lisinopril [Zestril] 20 mg PO DAILY 10/26/14 Ferrous Sulfate 325 mg PO BID 07/14/15 Multivitamin [Daily Multiple Vitamin] 1 each PO DAILY 07/14/15 Omeprazole [Prilosec] 20 mg PO DAILY 07/14/15 Polyethylene Glycol 3350 [Miralax] 17 gm PO DAILY PRN 07/14/15 Ipratropium [Atrovent Aerosols] 0.5 mg INHALATION 4X/DAY PRN 09/03/16 Guaifenesin [Mucinex] 600 mg PO BID 01/12/17 Fluticasone/Salmeterol [Advair Hfa 230-21 Mcg Inhaler] 2 puff INHALATION BID 06/22/17 Nystatin/Triamcin Cream [Mycolog] 1 applic TOPICAL BID PRN 06/22/17 Hydrocodone Bitart/Apap 5-325 [Ina 5/325] 1 tab PO Q4H PRN PRN #20 tab 09/16/17 Lactobacillus Acidophilus [Acidophilus] 2 tab PO TID #30 tab 09/16/17 Amoxicillin/Potassium Clav [Augmentin 875-125 Tablet] 1 ea PO BID 7 Days #14 tab 11/10/17 Following Prescrptions Were Given to Patient: Amoxicillin/Potassium Clav [Augmentin 875-125 Tablet] 1 ea PO BID 7 Days #14 tab Abhilash Walker, ZEE.SIGNAL OPERATOR 11/12/2017 12:30 PM Signed 11/12/2017 Patient presents with: Transition Of Care: [facility] D/C 11/10/17 cellulitis SUBJECTIVE: This is a 77 year old that is here today for hospital discharge follow up. He was admitted to [facility] from 11/06/17- 11/10/17 for cellulitis. Patient was sent to ER after being seen by Elena Monterroso NP 11/06/17 for infection on leg. He had been treated with a wound vac since August after an injury following with Dr. Cooper at the wound center. He has home health nurses that help to manage the wound vac. He had a fever of up to 102.2. He had finished a course of abx about a week prior. At the ER, temp of 100.4 with HR 107, he was found to have erythema surrounding the wound vac dressing with streaking up the back of thigh. EKG showed ST with isolated t wave inversion in lead III, WBC 9.9, INR 1.1, No acute process on CXR. They initiated the sepsis protocol starting zosyn. Erythema worsened while in the ER and he was admitted. Venous duplex negative for DVT. Blood cultures negative. Wound culture positive for gram positive corynebacterium striatum and streptococcus agalactiae. ID was consulted and recommended Augmentin for home. On day of d/c labs include WBC 5.8, RBC 3.51, HGB 9.7, HCT 30.8, BUN 20, Creat 1.31, GFR 56, NA 138, K+ 4.0. CM followed him and ensured that he was discharged home with order to resume HC with [facility]. He was given a prescription for the Augmentin. He states that he is working on getting an appointment with Dr. Hinds to discuss skin grafting plan. HH is coming to the house 3 times a week and he is going to the wound center once a week. He states that he is overall feeling well except for a painful red left great toe that started 2 days ago. Hard to walk on. He does have a history of gout, but it affected his right great toe. He denies any fever or chills. Wound vac in place, no drainage from the dressing. No pain with palpation. Still slightly swollen, he states that he wears cathryn hose baseline before this injury. Pt and both agree that it is much improved from what it was. PAST MEDICAL HISTORY Diagnosis Date - Anxiety state, unspecified - Benign neoplasm of colon - Chronic rhinitis - Colon polyp 10/2014 - Depressive disorder, not elsewhere classified - Diabetes mellitus type 2, controlled, without complications (HCC) 08/25/2017 - Diverticulosis of colon (without mention of hemorrhage) - Esophageal reflux - Family history of malignant neoplasm of gastrointestinal tract - GENERAL OSTEOARTHROSIS 04/08/2008 - Gout 04/01/2011 - HYPERGLYCEMIA 07/19/2005 - HYPERLIPIDEMIA NEC/NOS 07/19/2005 - HYPERTENSION NOS 09/03/2007 - Hypertrophy of prostate without urinary obstruction and other lower urinary tract symptoms (LUTS) - Impaired fasting blood sugar 07/19/2005 - Internal hemorrhoids without mention of complication - IRON DEFIC ANEMIA NEC 07/19/2005 - Macular degeneration (senile) of retina, unspecified - MALIGN NEOPL PROSTATE 05/23/2005 - Other pulmonary embolism without acute cor pulmonale (HCC) 01/27/2017 - Personal history of colonic polyps - Pulmonary embolism (HCC) - Pulmonary hypertension 01/30/2017 - PULMONARY NODULES 06/03/2006 - Rosacea 02/25/2007 - Skin cancer of face [facility]. - Unspecified asthma(493.90) ALLERGIES Indocin [Indomethacin Sodium]; Percocet [Oxycodone-Acetaminophen]; Seasonal Allergies MEDICATIONS Current Outpatient Prescriptions: fluticasone (FLONASE) 50 mcg/actuation nasal spray instill 2 sprays into each nostril twice a day sertraline (ZOLOFT) 100 mg tablet Take 1.5 tablets by mouth once daily. montelukast (SINGULAIR) 10 mg tablet Take 1 tablet by mouth daily at bedtime. nitroglycerin sublingual (NITROQUICK) 0.4 mg SL tablet Dissolve 1 tablet under the tongue every 5 minutes as needed for Chest Pain. guaiFENesin (MUCINEX) 600 mg 12 hr tablet Take 1 tablet by mouth twice daily. ADVAIR HFA 230-21 mcg/actuation inhaler take 2 inhalations by mouth twice a day Rinse mouth after use omeprazole (PRILOSEC) 20 mg capsule Take 1 capsule by mouth daily before breakfast. 1/2 hr before meal. lisinopril (ZESTRIL, PRINIVIL) 20 mg tablet Take 1 tablet by mouth once daily. atorvastatin (LIPITOR) 10 mg tablet take 1 tablet by mouth at bedtime VENTOLIN HFA 90 mcg/actuation inhaler inhale 2 puffs every 4 hours if needed SPIRIVA WITH HANDIHALER 18 mcg inhalation capsule inhale the contents of one capsule in the handihaler once daily nystatin-triamcinolone (MYCOLOG II) cream Apply 1 application to affected area twice daily as needed. Genital rash. azelastine (ASTELIN,ASTEPRO) 0.1% nasal spray instill 2 sprays into each nostril twice a day ipratropium-albuterol (DUONEB) 0.5 mg-3 mg(2.5 mg base)/3 mL nebu Inhale 3 mL as instructed four times daily as needed. by nebulizer over 5 to 15 minutes. EPINEPHrine (EPIPEN) 0.3 mg/0.3 mL auto-injector Inject 0.3 mL intramuscularly as needed. albuterol HFA (PROVENTIL HFA) 90 mcg/actuation inhaler Inhale 2 Puffs as instructed. polyethylene glycol 3350 (MIRALAX, GLYCOLAX) 17 gram/dose powder Take 17 g by mouth once daily. Take one (1) capful in 8oz of liquid each day. ferrous sulfate 325 mg (65 mg iron) tablet Take one(1) tablet two(2) times daily. (Patient taking differently: Take 325 mg by mouth once daily. Take one(1) tablet two(2) times daily. ) ipratropium (ATROVENT) 0.02 % nebulizer solution 500 mcg (one ampule) nebulized four times a day as needed. Vitamin A-Vit C-Vit E-Zinc-Cu (OCUVITE PRESERVISION) ORAL Tab Take one(1) tablet two(2) times daily. amoxicillin-clavulanic acid (AUGMENTIN) 875-125 mg per tablet Take 2 tablets by mouth twice daily. furosemide (LASIX) 40 mg tablet Take 1 tablet by mouth once daily for 7 days. leflunomide (ARAVA) 10 mg tablet Take 10 mg by mouth once daily. COMPOUNDED PRESCRIPTION Polypodium Leucotomos extract (Daily Defense). Take 2 capsules once a day. 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 No current facility-administered medications for this visit. Medications and allergies reviewed by this provider. 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 Social History Main Topics Smoking status: Never Smoker Smokeless tobacco: Never Used Comment: Father smoked in childhood home. No household smoke exposure since. 05/2014. Alcohol use: No Drug use: No Social History Narrative 2017: Lives with spouse w/ depression. No longer driving since 2013 due to macular degeneration. drives. Ambulatory with cane. Dyspnea on moderate exertion. REVIEW OF SYSTEMS GENERAL: No weight loss, malaise or fevers RESPIRATORY: Negative for cough, hemoptysis, wheezing, COPD, dyspnea or shortness of breath, no increase from baseline COPD, using inhalers as prescribed CARDIOVASCULAR: Negative for chest pain, leg swelling, hypertension, CHF or palpitations, + for bilateral foot swelling, has not been wearing cathryn hose SKIN: See HPI HEMATOLOGY/LYMPHOLOGY: Negative for prolonged bleeding, bruising easily or swollen nodes, following with Dr. Velázquez with PE history now off xarelto OBJECTIVE: BP 118/66 (BP Site: Left Arm, BP Position: Sitting, BP Cuff Size: Large Adult) Pulse 97 Temp 37 ?C (98.6 ?F) (Right Tympanic) Resp 16 Wt 92.5 kg (204 lb) SpO2 98% BMI 33.18 kg/m? . Vital signs reviewed by this provider. PHYSICAL EXAMINATION: General appearance: Well appearing, alert, in no acute distress, well-hydrated, well nourished., Obese Skin: wound vac in place to left lower leg. Removed ISAAK to see that dressing is clean dry and intact, there is slight pink erythema to the edges of the wound, no heat to touch. Slight edema. nontender. Left great toe is erythematous, tender to touch and warm to touch on the proximal joint. Lungs: Lungs clear to auscultation. No rhonchi, rales, Positive findings: mild wheezing Heart: RRR without murmur, gallop, or rubs. No ectopy Extremities: Edema: Nonpitting bilaterally to the feet ASSESSMENT/PLAN: 1. Great toe pain, left - ICD9: 729.5, ICD10: M79.675 (primary diagnosis) - will await blood work results, differential includes gout and since on same extremity as the infection would like pt to monitor closely for SANDS of infection - if elevated uric acid, will call in script - URIC ACID BLOOD 2. Cellulitis of skin - ICD9: 682.9, ICD10: L03.90 - improved - Continue treatment with Augmentin 500 mg Q8hrs - Check labs CBC with Diff in 3 weeks - No lymphangetic streaking, this was defined for patient to watch for and to seek medical care immediately if appears - Continue with and wound center and follow their recommendations - reminded pt of SANDS of infection and stressed the importance of being seen sooner rather than later for treatment - discussed DM diagnosis and encouraged healthy diet to promote healing and avoid potential complications 3. Hospital discharge follow-up - ICD9: V67.59, ICD10: Z09 See above - recheck labs in 3 weeks - CBC + DIFF - COMP METABOLIC PANEL Glenna Walker APRN.SIGNAL OPERATOR Referring Provider: SELF [[id number]] Allergies As of Date: 11/12/2017 Noted Allergy Reaction INDOCIN (INDOMETHACIN SODIUM) 04/01/2011 14 - Other: See Comments Comments: Wheezing, can take naprosyn PERCOCET (OXYCODONE-ACETAMINOPHEN)01/08/2005 9 - Itching SEASONAL ALLERGIES 11/12/2012 14 - Other: See Comments Comments: Cat, Goats, Dust mites, molds, trees, grasses, weed, ragweed Date Reviewed: 11/12/2017 Reviewed by: Abhilash Matute Ma - Fully Assessed Reason for Visit: Transition Of Care [4074] Cmt: ROBINA D/C 11/10/17 cellulitis Primary Visit Diagnosis:Great toe pain, left [M79.675] Other Visit Diagnoses:Cellulitis of skin [L03.90] Hospital discharge follow-up [Z09] Order(s):URIC ACID BLOOD [SQURIC] Order #: [id number] FUTURE CBC + DIFF [SQCBCDIF] Order #: [id number] FUTURE COMP METABOLIC PANEL [SQCMP] Order #: [id number] FUTURE Prescriptions as of 11/12/2017 Sig: FLUTICASONE 50 MCG/ACTUATION * instill 2 sprays into each no* SERTRALINE 100 MG TABLET Take 1.5 tablets by mouth onc* MONTELUKAST 10 MG TABLET Take 1 tablet by mouth daily * NITROGLYCERIN 0.4 MG SUBLINGU* Dissolve 1 tablet under the t* GUAIFENESIN ER 600 MG TABLET,* Take 1 tablet by mouth twice * ADVAIR HFA 230 MCG-21 MCG/ACT* take 2 inhalations by mouth t* OMEPRAZOLE 20 MG CAPSULE,AELX* Take 1 capsule by mouth daily* LISINOPRIL 20 MG TABLET Take 1 tablet by mouth once d* ATORVASTATIN 10 MG TABLET take 1 tablet by mouth at bed* VENTOLIN HFA 90 MCG/ACTUATION* inhale 2 puffs every 4 hours * SPIRIVA WITH HANDIHALER 18 MC* inhale the contents of one ca* NYSTATIN-TRIAMCINOLONE 100,00* Apply 1 application to affect* AZELASTINE 137 MCG (0.1 %) NA* instill 2 sprays into each no* IPRATROPIUM-ALBUTEROL 0.5 MG-* Inhale 3 mL as instructed fou* EPINEPHRINE 0.3 MG/0.3 ML INJ* Inject 0.3 mL intramuscularly* ALBUTEROL SULFATE HFA 90 MCG/* Inhale 2 Puffs as instructed. POLYETHYLENE GLYCOL 3350 17 G* Take 17 g by mouth once daily* FERROUS SULFATE 325 MG (65 MG* Take one(1) tablet two(2) link* Patient taking differently: Take 325 mg by mouth once winnie* IPRATROPIUM BROMIDE 0.02 % SO* 500 mcg (one ampule) nebulize* PRESERVISION AREDS 7,160 UNIT* Take one(1) tablet two(2) link* AMOXICILLIN 875 MG-POTASSIUM * Take 2 tablets by mouth twice* FUROSEMIDE 40 MG TABLET Take 1 tablet by mouth once d* LEFLUNOMIDE 10 MG TABLET Take 10 mg by mouth once christiano* COMPOUNDED PRESCRIPTION Polypodium Leucotomos extract* Medication notes this encounter NYSTATIN-TRIAMCINOLONE 100,000 UNIT/G-0.1 % TOPICAL CREAM >> Abhilash Matute Ma 11/12/2017 11:03 AM >> JANETH MONGEABHILASH FriNov 12, 2017 11:03 AM PRN Problem List As Of Date 11/12/2017 Noted Resolved Asthma [J45.909] 08/25/2017 CHRONIC RHINITIS [J31.0] BPH without obstruction/lower urinary tract sym* ANXIETY STATE NOS [F41.1] 08/05/2014 Depression with anxiety [F41.8] Diverticulosis of colon (without mention of hem* 10/06/2012 ESOPHAGEAL REFLUX [K21.9] Internal hemorrhoids without mention of complic* 08/30/2010 Malignant neoplasm of prostate (HCC) [C61] INVALID FOR*08/05/2014 MACULAR DEGENERATION NOS [H35.30] Other specified iron deficiency anemias [D50.8] INVALID FOR*08/30/2010 Diabetes mellitus type 2, controlled, without c*INVALID FOR* Hyperlipidemia [E78.5] INVALID FOR* Personal history of colonic polyps [Z86.010] INVALID FOR*09/30/2011 More... FAMILY HX COLON CANCER [Z80.0] INVALID FOR*08/25/2017 PULMONARY NODULES [J98.4] INVALID FOR*10/06/2012 More... 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] INVALID FOR* Essential hypertension [I10] INVALID FOR* Generalized osteoarthritis of multiple sites [M*INVALID FOR* Benign neoplasm of rectum and anal canal [D12.8*INVALID FOR*10/06/2012 Benign neoplasm of colon [D12.6] INVALID FOR* Gout [M10.9] INVALID FOR* Venous insufficiency of leg [I87.2] INVALID FOR* Iron deficiency anemia due to chronic blood los*INVALID FOR* Inflammatory polyarthropathy of multiple sites *INVALID FOR* Unsteady gait [R26.81] INVALID FOR* Uncomplicated severe persistent asthma [J45.50] INVALID FOR* Other pulmonary embolism without acute cor pulm*INVALID FOR* Pulmonary hypertension (HCC) [I27.20] INVALID FOR* Memory disturbance [R41.3] INVALID FOR* Obesity, Class I, BMI 30-34.9 E66.9 [E66.9] INVALID FOR* Open wound of left lower extremity [S81.802A] INVALID FOR* 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 Discharge Date: 11/10/17 Date of Admission: 11/06/17 - Primary Discharge Diagnosis Strep agalactiae/gram-positive rods acute left leg cellulitis in context of history of penetrating injury of the left leg with chronic nonhealing wounds. 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) Iron deficiency anemia (Chronic) Pulmonary nodule (Chronic) HLD (hyperlipidemia) (Chronic) Diverticulosis (Chronic) Asthma (Chronic) Hypertension (Chronic) Osteoarthritis (Chronic) Penetrating injury right leg (Chronic) History of prostate cancer (Chronic) Allergic rhinitis (Chronic) Rheumatoid arthritis (Chronic) Pleural plaque (Chronic) Macular degeneration (Chronic) GERD (gastroesophageal reflux disease) (Chronic) Hospital Course and Treatment Imaging Results: Clinical Impression(s) from Imaging Studies Chest X-Ray 11/06/17 17:00 IMPRESSION: Mild interstitial thickening in the lower lobes with chronic calcific pleural plaquing. No acute cardiopulmonary pathology Operations: None Procedures: None Summary of Care Provided: The patient is a 77 year old M admitted because of left leg pains and fever and he was found to have acute left leg cellulitis. He had a penetrating injury to the left leg was complicated by infection, abscess and cellulitis, underwent incision, wide debridement on September 12, 2017 and insertion of wound VAC on September 17, 2017. On admission, patient was febrile and had local erythema around the chronic left leg wound. He was treated with IV Zosyn and IV fluids. There was no evidence of sepsis or severe sepsis. Venous Doppler of both lower extremities revealed no evidence of acute DVT. His routine blood work was unremarkable. With IV antibiotic therapy, local erythema of the left leg improved. On the day of discharge, the wound VAC taken off and there was good formation of granulation tissue on the wound of the left leg with good blood supply. Blood culture showed no growth in 48 hours. Wound culture revealed Streptococcus agalactiae and gram-positive rods. Infectious disease consulted and recommended to discharge patient on Augmentin for 1 week of treatment. Patient has been following up with the wound care center as outpatient and he was referred to as outpatient for skin graft. Patient discharged home in a stable medical condition, discharged on Augmentin twice daily for 1 week, continued on his chronic home medication without any changes, plan to follow-up with PCP in 1 week, follow-up with Dr. Hinds for skin graft as outpatient in the near future. Discharge Activity: Return to Normal Activity Weight Bearing Status: Weight bearing as tolerated Medications to take at Discharge Albuterol Sulfate [Proventil Hfa] 2 puff IH BID 07/13/13 Azelastine HCl [Astelin] 2 spray NASAL BID 07/13/13 Fluticasone 0.05% [Flonase Nasal Remington] 2 spray NASAL BID 07/13/13 Montelukast [Singulair] 10 mg PO QHS 07/13/13 Sertraline HCl [Zoloft] 150 mg PO DAILY 07/13/13 Tiotropium Prospect [Spiriva 18 MCG] 1 puff INHALATION DAILY 07/13/13 Atorvastatin Calcium [Lipitor] 10 mg PO QHS 10/26/14 Lisinopril [Zestril] 20 mg PO DAILY 10/26/14 Ferrous Sulfate 325 mg PO BID 07/14/15 Multivitamin [Daily Multiple Vitamin] 1 each PO DAILY 07/14/15 Omeprazole [Prilosec] 20 mg PO DAILY 07/14/15 Polyethylene Glycol 3350 [Miralax] 17 gm PO DAILY PRN 07/14/15 Ipratropium [Atrovent Aerosols] 0.5 mg INHALATION 4X/DAY PRN 09/03/16 Guaifenesin [Mucinex] 600 mg PO BID 01/12/17 Fluticasone/Salmeterol [Advair Hfa 230-21 Mcg Inhaler] 2 puff INHALATION BID 06/22/17 Nystatin/Triamcin Cream [Mycolog] 1 applic TOPICAL BID PRN 06/22/17 Hydrocodone Bitart/Apap 5-325 [Ina 5/325] 1 tab PO Q4H PRN PRN #20 tab 09/16/17 Lactobacillus Acidophilus [Acidophilus] 2 tab PO TID #30 tab 09/16/17 Amoxicillin/Potassium Clav [Augmentin 875-125 Tablet] 1 ea PO BID 7 Days #14 tab 11/10/17 Following Prescrptions Were Given to Patient: Amoxicillin/Potassium Clav [Augmentin 875-125 Tablet] 1 ea PO BID 7 Days #14 tab Abhilash Matute Ma PROGRESS Observed: 11/12/2017 Status: COMPLETED Source: [place] 9:49 AM [facility] REPOSITORY O ID: [id number] Author: Simon Clemente Service: (none) Author Type: (none) Type: Progress Notes Filed: 12/04/2017 3:07 PM Note Text: TRANSITION CARE MANAGEMENT (TCM) INITIAL CONTACT Speech Coach Outreach Provider Action/FYI: Since discharge patient c/o left great toe redness and pain. Unable to wgt bear. Initial contact with patient post discharge, spoke to patient. Patient identified by name and . SUMMARY: -Pt discharged from [facility] on 11/10/17. -Admitted for: left leg cellulitis Do you have a hospital follow up appointment with your PCP? Appointment on 11/12/17 with MAXIMUS Walker. MEDICATIONS: Many patients have questions or concerns about their medications once they are home. Were you prescribed any new medications? If yes, what are those medications? Augmentin Were you told to hold any medications? No Were any of your medications discontinued? No Do you have any questions about getting or taking your medications? No Your discharge instructions/After visit Summary (AVS) are important in guiding you through the recovery process. Is there anything I might help you understand? No Do you have all the necessary equipment and supplies at home? Yes Medical records from recent hospitalization: Placed for provider to review Dr. mckenna, infectious disease. Operations: None, - Procedures: None Summary of Care Provided: The patient is a 77 year old M admitted because of left leg pains and fever and he was found to have acute left leg cellulitis. He had a penetrating injury to the left leg was complicated by infection, abscess and cellulitis, underwent incision, wide debridement on September 12, 2017 and insertion of wound VAC on September 17, 2017. On admission, patient was febrile and had local erythema around the chronic left leg wound. He was treated with IV Zosyn and IV fluids. There was no evidence of sepsis or severe sepsis. Venous Doppler of both lower extremities revealed no evidence of acute DVT. His routine blood work was unremarkable. With IV antibiotic therapy, local erythema of the left leg improved. On the day of discharge, the wound VAC taken off and there was good formation of granulation tissue on the wound of the left leg with good blood supply. Blood culture showed no growth in 48 hours. Wound culture revealed Streptococcus agalactiae and gram-positive rods. Infectious disease consulted and recommended to discharge patient on Augmentin for 1 week of treatment. Patient has been following up with the wound care center as outpatient and he was referred to Dr. Hinds as outpatient for skin graft. Patient discharged home in a stable medical condition, discharged on Augmentin twice daily for 1 week, continued on his chronic home medication without any changes, plan to follow-up with PCP in 1 week, follow-up with Dr. Hinds for skin graft as outpatient in the near future. Discharge Activity: Return to Normal Activity Weight Bearing Status: Weight bearing as tolerated Call your doctor if you observe: Fever of 101 or Higher, Shortness of breath, Dizziness, Fainting spells, Chest pain, Increased palpitations (irregular heartbeat), Uncontrolled pain Home Medications: Medications to take at Discharge Albuterol Sulfate [Proventil Hfa] 2 puff IH BID 07/13/13 Azelastine HCl [Astelin] 2 spray NASAL BID 07/13/13 Fluticasone 0.05% [Flonase Nasal Remington] 2 spray NASAL BID 07/13/13 Montelukast [Singulair] 10 mg PO QHS 07/13/13 Sertraline HCl [Zoloft] 150 mg PO DAILY 07/13/13 Tiotropium Prospect [Spiriva 18 MCG] 1 puff INHALATION DAILY 07/13/13 Atorvastatin Calcium [Lipitor] 10 mg PO QHS 10/26/14 Lisinopril [Zestril] 20 mg PO DAILY 10/26/14 Ferrous Sulfate 325 mg PO BID 07/14/15 Multivitamin [Daily Multiple Vitamin] 1 each PO DAILY 07/14/15 Omeprazole [Prilosec] 20 mg PO DAILY 07/14/15 Polyethylene Glycol 3350 [Miralax] 17 gm PO DAILY PRN 07/14/15 Ipratropium [Atrovent Aerosols] 0.5 mg INHALATION 4X/DAY PRN 09/03/16 Guaifenesin [Mucinex] 600 mg PO BID 01/12/17 Fluticasone/Salmeterol [Advair Hfa 230-21 Mcg Inhaler] 2 puff INHALATION BID 06/22/17 Nystatin/Triamcin Cream [Mycolog] 1 applic TOPICAL BID PRN 06/22/17 Hydrocodone Bitart/Apap 5-325 [Ina 5/325] 1 tab PO Q4H PRN PRN #20 tab 09/16/17 Lactobacillus Acidophilus [Acidophilus] 2 tab PO TID #30 tab 09/16/17 Amoxicillin/Potassium Clav [Augmentin 875-125 Tablet] 1 ea PO BID 7 Days #14 tab 11/10/17 Following Prescrptions Were Given to Patient: Amoxicillin/Potassium Clav [Augmentin 875-125 Tablet] 1 ea PO BID 7 Days #14 tab CNPTOUTREACH Observed: 11/12/2017 Status: COMPLETED Source: [place] 12:00 AM [facility] REPOSITORY Patient Outreach (INT[facility]) CARISSA YIP ([id number]) 1940 M Date Time Provider Department 11/12/17 LAMBERT LARIOS [facility] During your visit today, we recorded the following information about you: Simon Chyna 12/04/2017 3:07 PM Signed TRANSITION CARE MANAGEMENT (TCM) INITIAL CONTACT Speech Coach Outreach Provider Action/FYI: Since discharge patient c/o left great toe redness and pain. Unable to wgt bear. Initial contact with patient post discharge, spoke to patient. Patient identified by name and . SUMMARY: -Pt discharged from [facility] on 11/10/17. -Admitted for: left leg cellulitis Do you have a hospital follow up appointment with your PCP? Appointment on 11/12/17 with MAXIMUS Walker. MEDICATIONS: Many patients have questions or concerns about their medications once they are home. Were you prescribed any new medications? If yes, what are those medications? Augmentin Were you told to hold any medications? No Were any of your medications discontinued? No Do you have any questions about getting or taking your medications? No Your discharge instructions/After visit Summary (AVS) are important in guiding you through the recovery process. Is there anything I might help you understand? No Do you have all the necessary equipment and supplies at home? Yes Medical records from recent hospitalization: Placed for provider to review Dr. mckenna, infectious disease. Operations: None, - Procedures: None Summary of Care Provided: The patient is a 77 year old M admitted because of left leg pains and fever and he was found to have acute left leg cellulitis. He had a penetrating injury to the left leg was complicated by infection, abscess and cellulitis, underwent incision, wide debridement on September 12, 2017 and insertion of wound VAC on September 17, 2017. On admission, patient was febrile and had local erythema around the chronic left leg wound. He was treated with IV Zosyn and IV fluids. There was no evidence of sepsis or severe sepsis. Venous Doppler of both lower extremities revealed no evidence of acute DVT. His routine blood work was unremarkable. With IV antibiotic therapy, local erythema of the left leg improved. On the day of discharge, the wound VAC taken off and there was good formation of granulation tissue on the wound of the left leg with good blood supply. Blood culture showed no growth in 48 hours. Wound culture revealed Streptococcus agalactiae and gram-positive rods. Infectious disease consulted and recommended to discharge patient on Augmentin for 1 week of treatment. Patient has been following up with the wound care center as outpatient and he was referred to Dr. Hinds as outpatient for skin graft. Patient discharged home in a stable medical condition, discharged on Augmentin twice daily for 1 week, continued on his chronic home medication without any changes, plan to follow-up with PCP in 1 week, follow-up with Dr. Hinds for skin graft as outpatient in the near future. Discharge Activity: Return to Normal Activity Weight Bearing Status: Weight bearing as tolerated Call your doctor if you observe: Fever of 101 or Higher, Shortness of breath, Dizziness, Fainting spells, Chest pain, Increased palpitations (irregular heartbeat), Uncontrolled pain Home Medications: Medications to take at Discharge Albuterol Sulfate [Proventil Hfa] 2 puff IH BID 07/13/13 Azelastine HCl [Astelin] 2 spray NASAL BID 07/13/13 Fluticasone 0.05% [Flonase Nasal Remington] 2 spray NASAL BID 07/13/13 Montelukast [Singulair] 10 mg PO QHS 07/13/13 Sertraline HCl [Zoloft] 150 mg PO DAILY 07/13/13 Tiotropium Prospect [Spiriva 18 MCG] 1 puff INHALATION DAILY 07/13/13 Atorvastatin Calcium [Lipitor] 10 mg PO QHS 10/26/14 Lisinopril [Zestril] 20 mg PO DAILY 10/26/14 Ferrous Sulfate 325 mg PO BID 07/14/15 Multivitamin [Daily Multiple Vitamin] 1 each PO DAILY 07/14/15 Omeprazole [Prilosec] 20 mg PO DAILY 07/14/15 Polyethylene Glycol 3350 [Miralax] 17 gm PO DAILY PRN 07/14/15 Ipratropium [Atrovent Aerosols] 0.5 mg INHALATION 4X/DAY PRN 09/03/16 Guaifenesin [Mucinex] 600 mg PO BID 01/12/17 Fluticasone/Salmeterol [Advair Hfa 230-21 Mcg Inhaler] 2 puff INHALATION BID 06/22/17 Nystatin/Triamcin Cream [Mycolog] 1 applic TOPICAL BID PRN 06/22/17 Hydrocodone Bitart/Apap 5-325 [Ina 5/325] 1 tab PO Q4H PRN PRN #20 tab 09/16/17 Lactobacillus Acidophilus [Acidophilus] 2 tab PO TID #30 tab 09/16/17 Amoxicillin/Potassium Clav [Augmentin 875-125 Tablet] 1 ea PO BID 7 Days #14 tab 11/10/17 Following Prescrptions Were Given to Patient: Amoxicillin/Potassium Clav [Augmentin 875-125 Tablet] 1 ea PO BID 7 Days #14 tab Allergies As of Date: 11/12/2017 Noted Allergy Reaction INDOCIN (INDOMETHACIN SODIUM) 04/01/2011 14 - Other: See Comments Comments: Wheezing, can take naprosyn PERCOCET (OXYCODONE-ACETAMINOPHEN)01/08/2005 9 - Itching SEASONAL ALLERGIES 11/12/2012 14 - Other: See Comments Comments: Cat, Goats, Dust mites, molds, trees, grasses, weed, ragweed Date Reviewed: 11/12/2017 Reviewed by: Abhilash Matute Ma - Fully Assessed Reason for Visit: Transition Of Care [4074] Prescriptions as of 11/12/2017 Sig: AMOXICILLIN 875 MG-POTASSIUM * Take 2 tablets by mouth twice* FLUTICASONE 50 MCG/ACTUATION * instill 2 sprays into each no* FUROSEMIDE 40 MG TABLET Take 1 tablet by mouth once d* SERTRALINE 100 MG TABLET Take 1.5 tablets by mouth onc* MONTELUKAST 10 MG TABLET Take 1 tablet by mouth daily * NITROGLYCERIN 0.4 MG SUBLINGU* Dissolve 1 tablet under the t* GUAIFENESIN ER 600 MG TABLET,* Take 1 tablet by mouth twice * ADVAIR HFA 230 MCG-21 MCG/ACT* take 2 inhalations by mouth t* OMEPRAZOLE 20 MG CAPSULE,ALEX* Take 1 capsule by mouth daily* LISINOPRIL 20 MG TABLET Take 1 tablet by mouth once d* ATORVASTATIN 10 MG TABLET take 1 tablet by mouth at bed* LEFLUNOMIDE 10 MG TABLET Take 10 mg by mouth once christiano* VENTOLIN HFA 90 MCG/ACTUATION* inhale 2 puffs every 4 hours * X SPIRIVA WITH HANDIHALER 18 MC* inhale the contents of one ca* NYSTATIN-TRIAMCINOLONE 100,00* Apply 1 application to affect* AZELASTINE 137 MCG (0.1 %) NA* instill 2 sprays into each no* IPRATROPIUM-ALBUTEROL 0.5 MG-* Inhale 3 mL as instructed fou* COMPOUNDED PRESCRIPTION Polypodium Leucotomos extract* Patient not taking: Reported on 11/18/2017 EPINEPHRINE 0.3 MG/0.3 ML INJ* Inject 0.3 mL intramuscularly* ALBUTEROL SULFATE HFA 90 MCG/* Inhale 2 Puffs as instructed. POLYETHYLENE GLYCOL 3350 17 G* Take 17 g by mouth once daily* FERROUS SULFATE 325 MG (65 MG* Take one(1) tablet two(2) link* Patient taking differently: Take 325 mg by mouth twice da* IPRATROPIUM BROMIDE 0.02 % SO* 500 mcg (one ampule) nebulize* PRESERVISION AREDS 7,160 UNIT* Take one(1) tablet two(2) link* Problem List As Of Date 11/12/2017 Noted Resolved Asthma [J45.909] 08/25/2017 CHRONIC RHINITIS [J31.0] BPH without obstruction/lower urinary tract sym* ANXIETY STATE NOS [F41.1] 08/05/2014 Depression with anxiety [F41.8] Diverticulosis of colon (without mention of hem* 10/06/2012 ESOPHAGEAL REFLUX [K21.9] Internal hemorrhoids without mention of complic* 08/30/2010 Malignant neoplasm of prostate (HCC) [C61] INVALID FOR*08/05/2014 MACULAR DEGENERATION NOS [H35.30] Other specified iron deficiency anemias [D50.8] INVALID FOR*08/30/2010 Diabetes mellitus type 2, controlled, without c*INVALID FOR* Hyperlipidemia [E78.5] INVALID FOR* Personal history of colonic polyps [Z86.010] INVALID FOR*09/30/2011 More... FAMILY HX COLON CANCER [Z80.0] INVALID FOR*08/25/2017 PULMONARY NODULES [J98.4] INVALID FOR*10/06/2012 More... 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] INVALID FOR* Essential hypertension [I10] INVALID FOR* Generalized osteoarthritis of multiple sites [M*INVALID FOR* Benign neoplasm of rectum and anal canal [D12.8*INVALID FOR*10/06/2012 Benign neoplasm of colon [D12.6] INVALID FOR* Gout [M10.9] INVALID FOR* Venous insufficiency of leg [I87.2] INVALID FOR* Iron deficiency anemia due to chronic blood los*INVALID FOR* Inflammatory polyarthropathy of multiple sites *INVALID FOR* Unsteady gait [R26.81] INVALID FOR* Uncomplicated severe persistent asthma [J45.50] INVALID FOR* Other pulmonary embolism without acute cor pulm*INVALID FOR* Pulmonary hypertension (HCC) [I27.20] INVALID FOR* Memory disturbance [R41.3] INVALID FOR* Obesity, Class I, BMI 30-34.9 E66.9 [E66.9] INVALID FOR* Open wound of left lower extremity [S81.802A] INVALID FOR* 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] INVALID FOR* Encounter Status:Closed by DOMINIQUE JIMENEZ LPN on 12/04/17 WOUND CTR HISTORY Observed: 11/11/2017 Status: F Source: BRENDA AND PHYSICAL 12:39 PM [facility] [place] REPOSITORY [facility] [address] [place] [address] Wound Ctr History AND Physical 11/11/17 1232 MR#: [id number] Acct: [id number] Name: CARISSA YIP Rep #: [id number] : 1940 77 From: Oz Cooper MD PCP: Lambert Larios MD Status: REG RCR Y Location: WC (1) Traumatic wound Status: Acute Current Visit: Yes (2) Open wound of left lower extremity Status: Acute Current Visit: Yes Qualifiers: Encounter type: subsequent encounter Qualified Code(s): S81.802D - Unspecified open wound, left lower leg, subsequent encounter Code(s): S81.802A - Unspecified open wound, left lower leg, initial encounter (3) Leg swelling Status: Chronic Current Visit: Yes Code(s): M79.89 - Other specified soft tissue disorders (4) History of pulmonary embolism Status: Chronic Current Visit: No Code(s): Z86.711 - Personal history of pulmonary embolism (5) HLD (hyperlipidemia) Status: Chronic Current Visit: No Code(s): E78.5 - Hyperlipidemia, unspecified (6) Asthma Status: Chronic Current Visit: No Qualifiers: Asthma severity: moderate Asthma complication type: uncomplicated Code(s): J45.909 - Unspecified asthma, uncomplicated (7) Hypertension Status: Chronic Current Visit: No Qualifiers: Hypertension type: essential hypertension Code(s): I10 - Essential (primary) hypertension (8) Traumatic open wound of left lower leg Status: Acute Current Visit: Yes Qualifiers: Encounter type: subsequent encounter Code(s): S81.802A - Unspecified open wound, left lower leg, initial encounter (9) Open wound of left lower leg Status: Acute Current Visit: Yes Qualifiers: Encounter type: subsequent encounter Qualified Code(s): S81.802D - Unspecified open wound, left lower leg, subsequent encounter Code(s): S81.802A - Unspecified open wound, left lower leg, initial encounter (10) Open wound Status: Acute Current Visit: Yes Code(s): T14.8 - Other injury of unspecified body region (11) Obesity Status: Chronic Current Visit: No Code(s): E66.9 - Obesity, unspecified (12) Osteoarthritis Status: Chronic Current Visit: No (13) History of prostate cancer Status: Chronic Current Visit: No Code(s): Z85.46 - Personal history of malignant neoplasm of prostate (14) Macular degeneration Status: Chronic Current Visit: No Code(s): H35.30 - Unspecified macular degeneration (15) GERD (gastroesophageal reflux disease) Status: Chronic Current Visit: No Code(s): K21.9 - Gastro- esophageal reflux disease without esophagitis (16) Prostate ca Status: Deleted Current Visit: No Code(s): C61 - Malignant neoplasm of prostate History of Present Illness Date of Service: 11/11/17 Chief Complaint: Recent traumatic injury of the left lower extremity with residual open wound History of Wound: This is a 77-year-old male who was in his normal state of health until September 06, 2017, at which time he sustained an injury to the left lateral calf, the result of a shovel which impaled into his left leg. The patient was rushed to the emergency department on that date, where he was treated by means of wound closure using sutures. Four days later, he had developed a cellulitis, and was admitted to the hospital for treatment. Patient was treated with antibiotics, and subsequently underwent wide surgical debridement of necrotic tissue by Dr. Homero Chin on September 12, 2017. Patient was discharged on September 16, 2017. He was discharged on Cipro 500 mg p.o. twice daily and Augmentin 875 mg p.o. twice daily. At the time of discharge, arrangements were made for the wound VAC to be the means of treatment, which has been changed every several days by home health nursing personnel. The patient had been on Xarelto and treatment for a pulmonary embolism which was diagnosed in January 2017. As result of his injury, the Xarelto has been discontinued. A noninvasive lower extremity arterial study performed in August 2016 revealed no evidence of arterial occlusive disease in the lower extremities. Therefore, there is no reason to believe there is since of any significant arterial occlusive disease. Patient has done well, showing progress with the use of the wound VAC., last week the patient developed cellulitis in his left lower extremity associated with fever. He was hospitalized at [facility] for approximately 4 days. He was treated initially with intravenous antibiotics consisting of Zosyn, and was subsequently discharged with a prescription for Augmentin, which continues currently. The wound VAC has been re-implemented. 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) Iron deficiency anemia (Chronic) Pulmonary nodule (Chronic) HLD (hyperlipidemia) (Chronic) Diverticulosis (Chronic) Asthma (Chronic) Hypertension (Chronic) Osteoarthritis (Chronic) Penetrating injury right leg (Chronic) History of prostate cancer (Chronic) Allergic rhinitis (Chronic) Rheumatoid arthritis (Chronic) Pleural plaque (Chronic) Macular degeneration (Chronic) GERD (gastroesophageal reflux disease) (Chronic) Surgical History: - - Umbilical hernia repair, appendectomy, bilateral carpal tunnel surgery, Prostatectomy, Cataract surgery, L lens implant, L knee surgery followed by LTKR, L shoulder surgery, left total hip replacement. Allergies/Adverse Reactions: Allergies indomethacin [From Indocin] Allergy (Verified 11/06/17 14:54) Itching indomethacin sodium [From Indocin] Allergy (Verified 11/06/17 14:54) Itching oxycodone HCl [From Percocet] Allergy (Verified 11/06/17 14:54) Itching Home Medications: Ambulatory Orders Medication Instructions Recorded Albuterol Sulfate [Proventil Hfa] 2 puff IH BID 07/13/13 - Family History Sibling Diabetes, Renal Disease, - - Patient's father at the age of 76 with history of colon cancer myocardial infarction. Patient's mother at age of 86 with a history of breast cancer. Maternal Cancer Paternal Cancer Smoking Status: Never smoker Tobacco Use: Non-smoker Review of Systems Constitutional: Denies: Chills, Fever, Weight Change Eyes: Denies: Pain, Vision Change HEENT: Denies: Difficulty Hearing, Difficulty Swallowing, Sinus Congestion Cardiovascular: Denies: Chest Pain, Palpitations Respiratory: Denies: Cough, Shortness of Breath Gastrointestinal: Denies: Diarrhea, Nausea, Vomiting Genitourinary: Denies: Dysuria, Hematuria Endocrine: Denies: Heat/ Cold Intolerance, Polydipsia, Polyuria Hematologic/ Lymphatic: Denies: Easy Bruising, Easy Bleeding - Physical Exam Vital Signs Temp Pulse Resp BP 98.2 F 96 18 130/63 H 11/11/17 11:14 11/11/17 11:14 11/11/17 11:14 11/11/17 11:14 General: Alert, Oriented x3, Cooperative, No apparent distress, Well developed, Well nourished HEENT: Atraumatic, PERRLA, EOMI, Normocephalic Oral: Moist Mucosa Neck: No JVD Lungs: Normal air movement Abdomen: Non-Distended Extremities: No clubbing, No cyanosis, - - Only minimal swelling and edema is noted in the left lower extremity. The patient's traumatic wound, located on the left lateral calf, is pink and healthy in appearance. There is evidence of peripheral epithelialization. There is no evidence of significant cellulitis or erythema. There is no obvious infection. Dimensions are documented elsewhere. Wound Measurements and Assessment WC - Nurse 1 - General Ulcer Measurement Start: 10/31/17 10:07 Freq: Status: Active Protocol: Activity Type Activity Date Activity User E-Sign Co-Sign Detail Recorded Client Recorded Date Recorded By Document 11/11/17 11:14 DL [id number] 11/11/17 11:18 DL Wound Center Nurse 1 [Ulcer Assessment] #7 LATERAL LLE- POST OP 09/12/17 WC - Nurse 2 - General Ulcer CM Notes Start: 10/31/17 10:07 Freq: Status: Active Protocol: Activity Type Activity Date Activity User E-Sign Co-Sign Detail Recorded Client Recorded Date Recorded By Document 11/11/17 12:19 CS [id number] 11/11/17 12:20 CS Wound Center Nurse 2 Musculoskeletal: No Muscle Wasting Neurological: Cranial nerves II-XII grossly intact, Neuro grossly intact Psych/Mental Status: Normal Affect, Appropriate, Alert and oriented to time, place, person, mood and affect Debridement Note Post-Debridement Measurements/Treatment - Nurse 2 - General Ulcer CM Notes Start: 10/31/17 10:07 Freq: Status: Active Protocol: Activity Type Activity Date Activity User E-Sign Co-Sign Detail Recorded Client Recorded Date Recorded By Wound Center Nurse 2 #7 LATERAL LLE- POST OP 09/12/17 -Time 10:56 11:18 12:19 -Correct Patient Yes Yes Yes No debridement was completed today Assessment/Plan Active Problems Open wound (Acute) Open wound of left lower leg (Acute) Traumatic open wound of left lower leg (Acute) Leg swelling (Chronic) Traumatic wound (Acute) Open wound of left lower extremity (Acute) Assessment: This is a 77-year-old male with a traumatic injury to the left lateral calf. The patient appears to be responding well to the use of the wound VAC, which will be continued. It has been noted that the patient was recently hospitalized for 4 days and treatment for cellulitis in the left lower extremity related to his traumatic wound. He has responded well to inpatient management, and his cellulitis appears to be resolved. He remains on Augmentin orally. Plan: We are to continue the use of the wound VAC which will be changed several times weekly. Patient has shown significant progress. Wound VAC changes have been assisted by home health nursing personnel. Patient will return in 1 week for reassessment. Intake of a well-balanced and nutritious diet has been advised. Patient has been advised to elevate his lower extremities, to minimize swelling and edema. Continue increasing iron supplements to twice daily daily. Follow-up one week. We will seek consultation with plastic surgery, Dr. Hinds, for consideration of a split thickness skin graft. Given the large size of the patient's traumatic wound, split thickness skin grafting may offer a more expeditious approach to subsequent healing and discharge. Matters in this regard have been discussed with the patient. The patient is not a smoker. Influenza vaccine was not administered today. Patient stands 5 feet 4 inches tall. He weighs 210 pounds. His BMI is 36.0, which places him in a class II category. Weight loss has been recommended, with collaboration with his primary care physician. 11/11/17 1239 <Electronically signed by Oz Cooper MD> Date Oz Cooper MD CC: Signed DISCHARGE SUMMARY Observed: 11/10/2017 Status: F Source: [place] 3:57 PM [facility] REPOSITORY [facility] Medical Records Department [address] [place] [address] [place] [address] Discharge Summary 11/10/17 1545 MR#: [id number] Acct: [id number] Name: CARISSA YIP Rep #: [id number] : 1940 77 From: Violeta Wyman MD PCP: Lambert Larios MD Status: DIS IN Y Location: MS3 [id number] Discharge Date and Diagnosis Date of Admission: 11/06/17 - Primary Discharge Diagnosis Strep agalactiae/gram-positive rods acute left leg cellulitis in context of history of penetrating injury of the left leg with chronic nonhealing wounds. 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) Iron deficiency anemia (Chronic) Pulmonary nodule (Chronic) HLD (hyperlipidemia) (Chronic) Diverticulosis (Chronic) Asthma (Chronic) Hypertension (Chronic) Osteoarthritis (Chronic) Penetrating injury right leg (Chronic) History of prostate cancer (Chronic) Allergic rhinitis (Chronic) Rheumatoid arthritis (Chronic) Pleural plaque (Chronic) Macular degeneration (Chronic) GERD (gastroesophageal reflux disease) (Chronic) Hospital Course and Treatment Imaging Results: Clinical Impression(s) from Imaging Studies Chest X-Ray 11/06/17 17:00 IMPRESSION: Mild interstitial thickening in the lower lobes with chronic calcific pleural plaquing. No acute cardiopulmonary pathology Electronically Signed: Chapo Samuel MD at 17:22 EDT , Service support , Consultations 11/06/17 18:56 Consult: Onc/Wound/anthropologist Routine Comment: Dr. mckenna, infectious disease. Operations: None, - Procedures: None Summary of Care Provided: The patient is a 77 year old M admitted because of left leg pains and fever and he was found to have acute left leg cellulitis. He had a penetrating injury to the left leg was complicated by infection, abscess and cellulitis, underwent incision, wide debridement on September 12, 2017 and insertion of wound VAC on September 17, 2017. On admission, patient was febrile and had local erythema around the chronic left leg wound. He was treated with IV Zosyn and IV fluids. There was no evidence of sepsis or severe sepsis. Venous Doppler of both lower extremities revealed no evidence of acute DVT. His routine blood work was unremarkable. With IV antibiotic therapy, local erythema of the left leg improved. On the day of discharge, the wound VAC taken off and there was good formation of granulation tissue on the wound of the left leg with good blood supply. Blood culture showed no growth in 48 hours. Wound culture revealed Streptococcus agalactiae and gram-positive rods. Infectious disease consulted and recommended to discharge patient on Augmentin for 1 week of treatment. Patient has been following up with the wound care center as outpatient and he was referred to Dr. Hinds as outpatient for skin graft. Patient discharged home in a stable medical condition, discharged on Augmentin twice daily for 1 week, continued on his chronic home medication without any changes, plan to follow-up with PCP in 1 week, follow-up with Dr. Hinds for skin graft as outpatient in the near future. Discharge Activity: Return to Normal Activity Weight Bearing Status: Weight bearing as tolerated Call your doctor if you observe: Fever of 101 or Higher, Shortness of breath, Dizziness, Fainting spells, Chest pain, Increased palpitations (irregular heartbeat), Uncontrolled pain Home Medications: Medications to take at Discharge Albuterol Sulfate [Proventil Hfa] 2 puff IH BID 07/13/13 Azelastine HCl [Astelin] 2 spray NASAL BID 07/13/13 Fluticasone 0.05% [Flonase Nasal Remington] 2 spray NASAL BID 07/13/13 Montelukast [Singulair] 10 mg PO QHS 07/13/13 Sertraline HCl [Zoloft] 150 mg PO DAILY 07/13/13 Tiotropium Prospect [Spiriva 18 MCG] 1 puff INHALATION DAILY 07/13/13 Atorvastatin Calcium [Lipitor] 10 mg PO QHS 10/26/14 Lisinopril [Zestril] 20 mg PO DAILY 10/26/14 Ferrous Sulfate 325 mg PO BID 07/14/15 Multivitamin [Daily Multiple Vitamin] 1 each PO DAILY 07/14/15 Omeprazole [Prilosec] 20 mg PO DAILY 07/14/15 Polyethylene Glycol 3350 [Miralax] 17 gm PO DAILY PRN 07/14/15 Ipratropium [Atrovent Aerosols] 0.5 mg INHALATION 4X/DAY PRN 09/03/16 Guaifenesin [Mucinex] 600 mg PO BID 01/12/17 Fluticasone/Salmeterol [Advair Hfa 230-21 Mcg Inhaler] 2 puff INHALATION BID 06/22/17 Nystatin/Triamcin Cream [Mycolog] 1 applic TOPICAL BID PRN 06/22/17 Hydrocodone Bitart/Apap 5-325 [Ina 5/325] 1 tab PO Q4H PRN PRN #20 tab 09/16/17 Lactobacillus Acidophilus [Acidophilus] 2 tab PO TID #30 tab 09/16/17 Amoxicillin/Potassium Clav [Augmentin 875-125 Tablet] 1 ea PO BID 7 Days #14 tab 11/10/17 Following Prescrptions Were Given to Patient: Amoxicillin/Potassium Clav [Augmentin 875-125 Tablet] 1 ea PO BID 7 Days #14 tab Primary Care Physician: Lambert Larios MD [Primary Care Provider] - Please follow up with your Primary Care Physician in: 1 WEEK. Please Follow Up With: Christy Hinds MD When: Please call his office. Disposition: Home Minutes spent on discharge:: 32 Patient Condition:: Stable Medical Necessity - Tobacco Use Smoking Status: Never smoker Meaningful Use Info Meaningful Use Diagnoses (Choose all that apply): None applicable Code Visit Inpatient E AND M: 32757 Disch Hosp 11/10/17 1557 <Electronically signed by Violeta Wyman MD> Date Violeta Wyman MD Cosigner Signature (if applicable): Date CC: Violeta Wyman; Christy Hinds MD; Lambert Larios MD Signed DISCHARGE INSTRUCTION Observed: 11/10/2017 Status: F Source: BRENDA 1:34 PM [facility] [place] REPOSITORY [facility] Medical Records Department [address] [place] [address] Instructions for Home/Discharge Instructions 11/10/17 1332 MR#: [id number] Acct: [id number] Name: CARISSA YIP Rep #: [id number] : 1940 77 From: Violeta Wyman MD PCP: Lambert Larios MD Status: ADM IN - Discharge Diagnoses Current Active Problems: Current Active and Chronic Problems Cellulitis of left leg (Acute) You will use the following diet at home:: No restrictions Your food should be the consistency of: Regular Discharge Activity: Return to Normal Activity Weight Bearing Status: Weight bearing as tolerated Call your doctor if you observe: Fever of 101 or Higher, Shortness of breath, Dizziness, Fainting spells, Chest pain, Increased palpitations (irregular heartbeat), Uncontrolled pain Additional Instructions: Follow-up with the wound care center. Allergies/Adverse Reactions: Allergies indomethacin [From Indocin] Allergy (Verified 11/06/17 14:54) Itching indomethacin sodium [From Indocin] Allergy (Verified 11/06/17 14:54) Itching oxycodone HCl [From Percocet] Allergy (Verified 11/06/17 14:54) Itching Medications to take at Discharge Albuterol Sulfate [Proventil Hfa] 2 puff IH BID 07/13/13 Azelastine HCl [Astelin] 2 spray NASAL BID 07/13/13 Fluticasone 0.05% [Flonase Nasal Remington] 2 spray NASAL BID 07/13/13 Montelukast [Singulair] 10 mg PO QHS 07/13/13 Sertraline HCl [Zoloft] 150 mg PO DAILY 07/13/13 Tiotropium Prospect [Spiriva 18 MCG] 1 puff INHALATION DAILY 07/13/13 Atorvastatin Calcium [Lipitor] 10 mg PO QHS 10/26/14 Lisinopril [Zestril] 20 mg PO DAILY 10/26/14 Ferrous Sulfate 325 mg PO BID 07/14/15 Multivitamin [Daily Multiple Vitamin] 1 each PO DAILY 07/14/15 Omeprazole [Prilosec] 20 mg PO DAILY 07/14/15 Polyethylene Glycol 3350 [Miralax] 17 gm PO DAILY PRN 07/14/15 Ipratropium [Atrovent Aerosols] 0.5 mg INHALATION 4X/DAY PRN 09/03/16 Guaifenesin [Mucinex] 600 mg PO BID 01/12/17 Fluticasone/Salmeterol [Advair Hfa 230-21 Mcg Inhaler] 2 puff INHALATION BID 06/22/17 Nystatin/Triamcin Cream [Mycolog] 1 applic TOPICAL BID PRN 06/22/17 Hydrocodone Bitart/Apap 5-325 [Ina 5/325] 1 tab PO Q4H PRN PRN #20 tab 09/16/17 Lactobacillus Acidophilus [Acidophilus] 2 tab PO TID #30 tab 09/16/17 Amoxicillin/Potassium Clav [Augmentin 875-125 Tablet] 1 ea PO BID 7 Days #14 tab 11/10/17 The following prescriptions were given: Amoxicillin/Potassium Clav [Augmentin 875-125 Tablet] 1 ea PO BID 7 Days #14 tab Primary Care Physician: Lambert Larios MD [Primary Care Provider] - Please follow up with your Primary Care Physician in: 1 WEEK. Please Follow Up With: Christy Hinds MD When: Please call his office. 11/10/17 4233 <Electronically signed by Violeta Wyman MD> Date Violeta Wyman MD CC: Chet Mckenna MD; Lambert Larios MD 12 LEAD ELECTROCARDIOGRAM Observed: 11/10/2017 Status: F Source: [place] 10:15 AM [facility] REPOSITORY [facility] Cardiovascular Services [address] [place] [id number] 12 Lead EKG 11/06/17 1635 MR#: [id number] Acct: [id number] Name: CARISSA YIP Rep #: [id number] : 1940 77 From: Prasanth Cruz MD Attending Dr: Violeta Wyman Status: ADM IN Ordering Dr: Boogie Rodriguez DO Date: 11/06/17 Location: MS3 Sex: M C Admitted: 11/06/17 Test Reason : WOUND Blood Pressure : / mmHG Vent. Rate : 103 BPM Atrial Rate : 103 BPM P-R Int : 116 ms QRS Dur : 086 ms QT Int : 334 ms P-R-T Axes : 049 055 026 degrees QTc Int : 437 ms Sinus tachycardia Otherwise normal ECG Confirmed by PRASANTH CRUZ ([id number]), graphics editor CHERELLE VILLASEÑOR ([id number]) on 11/10/2017 10:14:56 AM Referred By: PAULINO Confirmed By:PRASANTH CRUZ 11/10/17 1014 Date Prasanth Crzu MD CC: Violeta Wyman; Boogie Rodriguez; Lambert Larios MD Signed BASIC METABOLIC Collected: 11/10/2017 Status: F Source: [place] PROFILE (BMP) 5:38 AM [facility] REPOSITORY TYPE CODE TESTS RESULT OUT OF RANGE REFERENCE UNITS LAB L501.0100 74-106 mg/dL High GLU 140 Result Comment: Fasting Glucose result greater than or equal to 126 mg/dL suggests DIABETES MELLITUS per A.D.A. criteria. Please note revised GLUCOSE reference range effective 2017. LAB L501.1000 7-18 mg/dL High BUN 20 LAB L501.1100 0.70-1.30 mg/dL High CREAT,SERUM 1.31 Result Comment: The validity of the calculated GFR AND GFRAA in patients over 70 years has not been determined. Clinical correlation is essential. LAB L501.1110 >60 mL/min Low EST GFR 56 Result Comment: Non- GFR Calc LAB L501.1115 >60 mL/min Normal EST GFR - AA 68 Result Comment: GFR Calc LAB L501.1255 ml/min Normal Estimated CRCL 39.77 LAB L501.1300 10-20 RATIO Normal BUN/CRE 15.3 LAB L501.2200 8.5-10 mg/dL Low .1 CA 8.3 LAB L501.5300 136-14 mmol/L Normal 5 NA 138 LAB L501.5600 3.5-5. mmol/L Normal 1 K 4.0 LAB L501.5900 98-107 mmol/L Normal CL 104 LAB L501.6100 21.0-3 mmol/L Normal 2.0 CO2 24.0 LAB L501.6200 5-15 Normal GAP 10 Performed By: #### L500.2500 #### [facility] [address] [place], [place], [address] CBC-COMPLETE BLOOD CNT Collected: 11/10/2017 Status: F Source: BRENDA NO DIFF 5:38 AM [facility] [place] REPOSITORY TYPE CODE TESTS RESULT OUT OF RANGE REFERENCE UNITS LAB L100.1000 4.4-11.0 K/mm3 Normal WBC 5.8 LAB L100.1200 4.6-6.2 M/mm3 Low RBC 3.51 LAB L100.1300 13.0-16.5 g/dl Low HGB 9.7 LAB L100.1400 40-54 % Low HCT 30.8 LAB L100.1500 80-94 fL Normal MCV 87.7 LAB L100.1600 27.0-32.0 pg Normal MCH 27.6 LAB L100.1700 32-36 g/gl Low MCHC 31.5 LAB L100.1810 11.6-14.6 % High RDW CV 15.2 LAB L100.1820 35.1-43.9 fl High RDW SD 48.1 LAB L100.1900 150-450 K/mm3 Normal PLT 203 LAB L100.2000 6.2-12.0 fl Normal MPV 9.9 Performed By: #### L100.0500 #### [facility] [address] [place], [address] BEDSIDE GLUCOSE Collected: 11/09/2017 Status: F Source: BRENDA 6:52 AM [facility] REPOSITORY TYPE CODE TESTS RESULT OUT OF REFERENCE UNITS RANGE LAB L501.080 70-110 mg/dL High BEDSIDE GLU 113 Result Comment: MANAGEMENT OF PATIENT CARE PER NURSING PROTOCOL Performed By: #### L501.080 #### [facility] Point of Care [address] [place], [place] [address] BASIC METABOLIC Collected: 11/09/2017 Status: F Source: BREN[place] PROFILE (BMP) 5:11 AM [facility] [place] REPOSITORY TYPE CODE TESTS RESULT OUT OF RANGE REFERENCE UNITS LAB L501.0100 74-106 mg/dL High GLU 111 Result Comment: Fasting Glucose result from 100 to 125 mg/dL suggests IMPAIRED HOMEOSTASIS per A.D.A. criteria. Please note revised GLUCOSE reference range effective 2017. LAB L501.1000 7-18 mg/dL Normal BUN 17 LAB L501.1100 0.70-1.30 mg/dL Normal CREAT,SERUM 1.09 Result Comment: The validity of the calculated GFR AND GFRAA in patients over 70 years has not been determined. Clinical correlation is essential. LAB L501.1110 >60 mL/min Normal EST GFR 69 Result Comment: Non- GFR Calc LAB L501.1115 >60 mL/min Normal EST GFR - AA 84 Result Comment: GFR Calc LAB L501.1255 ml/min Normal Estimated CRCL 47.80 LAB L501.1300 10-20 RATIO Normal BUN/CRE 15.6 LAB L501.2200 8.5-10 mg/dL Normal .1 CA 8.8 LAB L501.5300 136-14 mmol/L Normal 5 NA 138 LAB L501.5600 3.5-5. mmol/L Normal 1 K 4.1 LAB L501.5900 98-107 mmol/L Normal CL 104 LAB L501.6100 21.0-3 mmol/L Normal 2.0 CO2 25.0 LAB L501.6200 5-15 Normal GAP 9 Performed By: #### L500.2500 #### [facility] [address] [place], [address] CBC W/DIFF, AUTOMATED Collected: 11/09/2017 Status: F Source: [place] 5:11 AM [facility] [place] REPOSITORY TYPE CODE TESTS RESULT OUT OF RANGE REFERENCE UNITS LAB L100.1000 4.4-11.0 K/mm3 Normal WBC 5.8 LAB L100.1200 4.6-6.2 M/mm3 Low RBC 3.70 LAB L100.1300 13.0-16.5 g/dl Low HGB 9.9 LAB L100.1400 40-54 % Low HCT 32.3 LAB L100.1500 80-94 fL Normal MCV 87.3 LAB L100.1600 27.0-32.0 pg Low MCH 26.8 LAB L100.1700 32-36 g/gl Low MCHC 30.7 LAB L100.1810 11.6-14.6 % High RDW CV 15.5 LAB L100.1820 35.1-43.9 fl High RDW SD 50.3 LAB L100.1900 150-450 K/mm3 Normal PLT 204 LAB L100.2000 6.2-12.0 fl Normal MPV 9.9 LAB L100.2100 47-70 % Normal NEUT% 64.7 LAB L100.2200 19-41 % Low LY% 15.8 LAB L100.2300 0-10 % High MONO% 15.8 LAB L100.2400 0-5 % Normal EO% 3.3 LAB L100.2500 0-1 % Normal BASO% 0.2 LAB L100.2550 0.0-0.9 % Normal IM GRAN % 0.200 Result Comment: IG% - Immature Granulocytes (promyelocytes, myelocytes and metamyelocytes) > 1% indicates that a LEFT SHIFT is Present. LAB L100.2620 2.0-7.7 X10 3/uL Normal Absolute Neut 3.7 LAB L100.2720 0.83-4.51 X10 3/ul Normal Absolute Lymph 0.91 Performed By: #### L100.0100 #### [facility] [address] [place], [place], [id number] BEDSIDE GLUCOSE Collected: 11/08/2017 Status: F Source: BRENDA 10:38 PM [facility] REPOSITORY TYPE CODE TESTS RESULT OUT OF REFERENCE UNITS RANGE LAB L501.080 70-110 mg/dL High BEDSIDE GLU 155 Result Comment: MANAGEMENT OF PATIENT CARE PER NURSING PROTOCOL Performed By: #### L501.080 #### [facility] Point of Care [address] [facility]. [place], [place] [id number] BEDSIDE GLUCOSE Collected: 11/08/2017 Status: F Source: BRENDA 5:26 PM [facility] REPOSITORY TYPE CODE TESTS RESULT OUT OF REFERENCE UNITS RANGE LAB L501.080 70-110 mg/dL High BEDSIDE GLU 170 Result Comment: MANAGEMENT OF PATIENT CARE PER NURSING PROTOCOL Performed By: #### L501.080 #### [facility] Point of Care [address] [facility] [place] [address] BEDSIDE GLUCOSE Collected: 11/08/2017 Status: F Source: BRENDA 11:18 AM [facility] REPOSITORY TYPE CODE TESTS RESULT OUT OF REFERENCE UNITS RANGE LAB L501.080 70-110 mg/dL High BEDSIDE GLU 135 Result Comment: MANAGEMENT OF PATIENT CARE PER NURSING PROTOCOL Performed By: #### L501.080 #### [facility] Point of Care [address] [place], [place] [address] CBC W/DIFF, AUTOMATED Collected: 11/08/2017 Status: F Source: BRENDA 6:20 AM [facility] REPOSITORY TYPE CODE TESTS RESULT OUT OF RANGE REFERENCE UNITS LAB L100.1000 4.4-11.0 K/mm3 Normal WBC 5.0 LAB L100.1200 4.6-6.2 M/mm3 Low RBC 3.89 LAB L100.1300 13.0-16.5 g/dl Low HGB 10.9 LAB L100.1400 40-54 % Low HCT 34.0 LAB L100.1500 80-94 fL Normal MCV 87.4 LAB L100.1600 27.0-32.0 pg Normal MCH 28.0 LAB L100.1700 32-36 g/gl Normal MCHC 32.1 LAB L100.1810 11.6-14.6 % High RDW CV 15.2 LAB L100.1820 35.1-43.9 fl High RDW SD 48.2 LAB L100.1900 150-450 K/mm3 Normal PLT 203 LAB L100.2000 6.2-12.0 fl Normal MPV 10.3 LAB L100.2100 47-70 % Normal NEUT% 64.2 LAB L100.2200 19-41 % Low LY% 15.9 LAB L100.2300 0-10 % High MONO% 15.3 LAB L100.2400 0-5 % Normal EO% 3.6 LAB L100.2500 0-1 % Normal BASO% 0.4 LAB L100.2550 0.0-0.9 % Normal IM GRAN % 0.600 Result Comment: IG% - Immature Granulocytes (promyelocytes, myelocytes and metamyelocytes) > 1% indicates that a LEFT SHIFT is Present. LAB L100.2620 2.0-7.7 X10 3/uL Normal Absolute Neut 3.2 LAB L100.2720 0.83-4.51 X10 3/ul Low Absolute Lymph 0.79 Performed By: #### L100.0100 #### [facility] [address] [place], [address] BASIC METABOLIC Collected: 11/08/2017 Status: F Source: BRENDA PROFILE (BMP) 6:20 AM [facility] REPOSITORY TYPE CODE TESTS RESULT OUT OF RANGE REFERENCE UNITS LAB L501.0100 74-106 mg/dL High GLU 122 Result Comment: Fasting Glucose result from 100 to 125 mg/dL suggests IMPAIRED HOMEOSTASIS per A.D.A. criteria. Please note revised GLUCOSE reference range effective 2017. LAB L501.1000 7-18 mg/dL Normal BUN 13 LAB L501.1100 0.70-1.30 mg/dL Normal CREAT,SERUM 1.10 Result Comment: The validity of the calculated GFR AND GFRAA in patients over 70 years has not been determined. Clinical correlation is essential. LAB L501.1110 >60 mL/min Normal EST GFR 69 Result Comment: Non- GFR Calc LAB L501.1115 >60 mL/min Normal EST GFR - AA 83 Result Comment: GFR Calc LAB L501.1255 ml/min Normal Estimated CRCL 47.37 LAB L501.1300 10-20 RATIO Normal BUN/CRE 11.8 LAB L501.2200 8.5-10 mg/dL Normal .1 CA 9.0 LAB L501.5300 136-14 mmol/L Normal 5 NA 139 LAB L501.5600 3.5-5. mmol/L Normal 1 K 4.2 LAB L501.5900 98-107 mmol/L Normal CL 105 LAB L501.6100 21.0-3 mmol/L Normal 2.0 CO2 27.0 LAB L501.6200 5-15 Normal GAP 7 Performed By: #### L500.2500 #### [facility] [address] [place], [place], [address] BEDSIDE GLUCOSE Collected: 11/07/2017 Status: F Source: BRENDA 10:47 PM [facility] REPOSITORY TYPE CODE TESTS RESULT OUT OF REFERENCE UNITS RANGE LAB L501.080 70-110 mg/dL High BEDSIDE GLU 122 Result Comment: MANAGEMENT OF PATIENT CARE PER NURSING PROTOCOL Performed By: #### L501.080 #### [facility] Point of Care [address] [place], [place] [address] BEDSIDE GLUCOSE Collected: 11/07/2017 Status: F Source: BRENDA 6:03 PM [facility] REPOSITORY TYPE CODE TESTS RESULT OUT OF REFERENCE UNITS RANGE LAB L501.080 70-110 mg/dL High BEDSIDE GLU 170 Result Comment: MANAGEMENT OF PATIENT CARE PER NURSING PROTOCOL Performed By: #### L501.080 #### [facility] Point of Care [address] [place] [address] VENOUS DUPLEX LOWER Observed: 11/07/2017 Status: F Source: BRENDA EXTREMITY 2:20 PM [facility] REPOSITORY [facility] Cardiovascular Services [address] [place] [address] Venous Duplex US - Garett Extrem 11/07/17922 MR#: [id number] Acct: [id number] Name: CARISSA YIP Rep #: [id number] : 1940 77 From: Oz Cooper MD Attending Dr: Марина Jones DO Status: ADM IN Ordering Dr: Марина Jones DO Date: 11/07/17 Location: [facility] Sex: M C Admitted: 11/06/17 Reason For Study: LEG PAIN AND SWELLING RIGHT LEFT GSV is normal. GSV is normal. CFV is compressible, spontaneous, phasic, CFV is compressible, spontaneous, phasic, competent and demonstrates normal competent, and demonstrates normal augmentation. augmentation. FV is compressible, spontaneous, phasic, FV is compressible, spontaneous, phasic, competent and demonstrates normal competent and demonstrates normal augmentation. augmentation. POP V is compressible, spontaneous, phasic, POP V is compressible, spontaneous, phasic, competent and demonstrates normal competent and demonstrates normal augmentation. augmentation. T/P Trunk is compressible. T/P Trunk is compressible. PTV is compressible. PTV is compressible. RT PerV is compressible. LT PerV is compressible. Procedure Exam performed portable in patient room. A preliminary report was called and/or faxed to [facility]. Interpretation Summary Deep veins of the lower extremities are bilaterally patent and compressible segmentally. There is no evidence of deep vein thrombosis on either side. Valvular competence appears intact within the proximal deep venous systems bilaterally. The greater saphenous veins appear bilaterally patent and compressible segmentally. Ordering Physician: Марина Jones Referring Physician: Lambert Larios M.D. Performed By: Leigh Ann George RVT 11/07/17 1419 Date Oz Cooper MD CC: Марина Jones DO; Lambert Larios MD Date Dictated: 11/07/17922 Date Transcribed: 11/07/171418 Orthotics Prosthetics Assistant: Signed CONSULTATION Observed: 11/07/2017 Status: F Source: K[place]ON 2:19 PM [facility] REPOSITORY [facility] Medical Records Department [address] [place] [address] Consultation 11/07/17 1413 MR#: [id number] Acct: [id number] Name: CARISSA YIP Rep #: [id number] : 1940 77 From: Chet Mckenna MD PCP: Lambert Larios MD Status: ADM IN Y [id number] Problem List (1) Cellulitis of left leg Status: Acute Reason for Consult: fever Consulted by: Dr. Jones History of Present Illness: The patient is a 77 year old M with admit in 08/2017 after cutting his leg on a shovel 09/05. Taken to OR 09/12. Cxs (+) for enterococcus, citro, bacillus. Has done well since then, follows at wound care, has been off abx for several weeks now. Yesterday developed some weakness, chills, fever. Had not noticed any new pain/redness/swelling/drainage at L hickman wound. No other new symptoms. No sick contacts. Sent to ED, some redness noticed at inferior hickman, started on zosyn, feeling better. Full ROS performed and neg except as noted above. No dysuria, no cough, no n/v/d, no abd pain, no congestion. - Medical History Past Medical History (Chronic Problems): Chronic Problems History of pulmonary embolism (Chronic) Iron deficiency anemia (Chronic) Pulmonary nodule (Chronic) HLD (hyperlipidemia) (Chronic) Diverticulosis (Chronic) Asthma (Chronic) Hypertension (Chronic) Avulsion of skin (Chronic) Avulsion of skin of hand (Chronic) Obesity (Chronic) Osteoarthritis (Chronic) Penetrating injury right leg (Chronic) Pain in right leg (Chronic) Right leg swelling (Chronic) History of prostate cancer (Chronic) Allergic rhinitis (Chronic) Rheumatoid arthritis (Chronic) Pleural plaque (Chronic) Macular degeneration (Chronic) GERD (gastroesophageal reflux disease) (Chronic) Prostate ca (Chronic) Allergies/Adverse Reactions: Allergies indomethacin [From Indocin] Allergy (Verified 11/06/17 14:54) Itching indomethacin sodium [From Indocin] Allergy (Verified 11/06/17 14:54) Itching oxycodone HCl [From Percocet] Allergy (Verified 11/06/17 14:54) Itching Home Medications: Ambulatory Orders Medication Instructions Recorded Albuterol Sulfate [Proventil Hfa] 2 puff IH BID 07/13/13 Azelastine HCl [Astelin] 2 spray NASAL BID 07/13/13 - Social History SMOKING STATUS:: Never smoker Vital Signs Temp Pulse Resp BP Pulse Ox 97.8 F 88 20 H 134/76 H 97 11/07/17 11:00 11/07/17 13:04 11/07/17 13:04 11/07/17 11:00 11/07/17 11:00 Oxygen Delivery Method Room Air Weight: 92.9 kg Body Mass Index (BMI) 34.1 Laboratory Tests Past 24 Hrs - Other Studies Radiology: [] reviewed Other Studies: [] Route of nutrition/ use of supplements: [] Nutritional Intake: [] IV Site: [] León Catheter: [] - Physical Exam General: Alert, Oriented x3, Cooperative, No apparent distress HEENT: Atraumatic, PERRLA, EOMI Neck: Supple, No Nodes Lungs: Clear to auscultation, Normal air movement Cardiovascular: Regular rate, Regular Rhythm, No murmurs Abdomen: Bowel Sounds Present, Soft, Non Tender, Non-Distended Extremities: Peripheral Pulses Normal Skin: Ulcer/ Wound - L hickman with mild redness at inferior portion of wound Musculoskeletal: No Tenderness to Palpation of Joints or Extremities Neurological: Cranial nerves II-XII grossly intact - Assessment/Plan Antibiotics: [] Assessment/Plan: [] Active and Suspected Problems Cellulitis of left leg (Acute) Fever (Acute) Cxs pending. Staph pcr neg. Cont zosyn for now. Prior cxs with citro, enterococcus, bacillus. Thank you, will follow. 11/07/17 1419 <Electronically signed by Chet Mckenna MD> Date Chet Mckenna MD Cosigner Signature (if applicable): Date CC: Chet Mckenna MD; Lambert Larios MD Signed BEDSIDE GLUCOSE Collected: 11/07/2017 Status: F Source: BRENDA 11:29 AM [facility] REPOSITORY TYPE CODE TESTS RESULT OUT OF REFERENCE UNITS RANGE LAB L501.080 70-110 mg/dL High BEDSIDE GLU 115 Result Comment: MANAGEMENT OF PATIENT CARE PER NURSING PROTOCOL Performed By: #### L501.080 #### [facility] Point of Care [facility] [place] [address] Observed: 11/07/2017 Status: F Source: BRENDA CULTURE, WOUND 8:30 AM [facility] REPOSITORY Comments: left leg Gram Stain Gram Stain 1+ Gram positive cocci 2+ White Blood Cells Wound Culture #1 There are no CLSI standards for interpretation of this Drug/Organism combination. ORGANISM 1: Corynebacterium striatum Amount Growth 3+ ORGANISM 2: Streptococcus agalactiae (B) Amount Growth 1+ Streptococcus agalactiae (B): REACTION Ampicillin $ <=0.25 S Benzylpenicillin NF 0.12 S Ceftriaxone $ <=0.12 S Clindamycin $$ <=0.25 S Inducable Clindamycin Resistan - Linezolid $$$$ <=2 S Vancomycin $ 0.5 S (NF) indicates non-formulary drug at [facility]. Approval by Infectious Disease Specialist required before non-formulary drugs may be ordered and/or dispensed. * CLSI guidelines does not recommend testing of cephalosporins. This interpretation is deduced from Beta-lactam/penicillin results. Performed By: #### M100.1400 #### [facility] [address] [place], [address] CBC W/DIFF, AUTOMATED Collected: 11/07/2017 Status: F Source: KINSTON 6:31 AM [facility] REPOSITORY TYPE CODE TESTS RESULT OUT OF RANGE REFERENCE UNITS LAB L100.1000 4.4-11.0 K/mm3 Normal WBC 5.2 LAB L100.1200 4.6-6.2 M/mm3 Low RBC 3.91 LAB L100.1300 13.0-16.5 g/dl Low HGB 10.7 LAB L100.1400 40-54 % Low HCT 33.8 LAB L100.1500 80-94 fL Normal MCV 86.4 LAB L100.1600 27.0-32.0 pg Normal MCH 27.4 LAB L100.1700 32-36 g/gl Low MCHC 31.7 LAB L100.1810 11.6-14.6 % High RDW CV 15.7 LAB L100.1820 35.1-43.9 fl High RDW SD 49.9 LAB L100.1900 150-450 K/mm3 Normal PLT 194 LAB L100.2000 6.2-12.0 fl Normal MPV 9.4 LAB L100.2100 47-70 % High NEUT% 72.8 LAB L100.2200 19-41 % Low LY% 10.3 LAB L100.2300 0-10 % High MONO% 13.2 LAB L100.2400 0-5 % Normal EO% 3.1 LAB L100.2500 0-1 % Normal BASO% 0.4 LAB L100.2550 0.0-0.9 % Normal IM GRAN % 0.200 Result Comment: IG% - Immature Granulocytes (promyelocytes, myelocytes and metamyelocytes) > 1% indicates that a LEFT SHIFT is Present. LAB L100.2620 2.0-7.7 X10 3/uL Normal Absolute Neut 3.8 LAB L100.2720 0.83-4.51 X10 3/ul Low Absolute Lymph 0.54 Performed By: #### L100.0100 #### [facility] [address] [place], [place], [address] BASIC METABOLIC Collected: 11/07/2017 Status: F Source: KINSTON PROFILE ([facility]) 6:31 AM [facility] REPOSITORY TYPE CODE TESTS RESULT OUT OF RANGE REFERENCE UNITS LAB L501.0100 74-106 mg/dL High GLU 125 Result Comment: Fasting Glucose result from 100 to 125 mg/dL suggests IMPAIRED HOMEOSTASIS per A.D.A. criteria. Please note revised GLUCOSE reference range effective 2017. LAB L501.1000 7-18 mg/dL Normal BUN 13 LAB L501.1100 0.70-1.30 mg/dL Normal CREAT,SERUM 1.11 Result Comment: The validity of the calculated GFR AND GFRAA in patients over 70 years has not been determined. Clinical correlation is essential. LAB L501.1110 >60 mL/min Normal EST GFR 68 Result Comment: Non- GFR Calc LAB L501.1115 >60 mL/min Normal EST GFR - AA 82 Result Comment: GFR Calc LAB L501.1255 ml/min Normal Estimated CRCL 45.19 LAB L501.1300 10-20 RATIO Normal BUN/CRE 11.7 LAB L501.2200 8.5-10 mg/dL Normal .1 CA 8.6 LAB L501.5300 136-14 mmol/L Normal 5 NA 136 LAB L501.5600 3.5-5. mmol/L Normal 1 K 4.4 LAB L501.5900 98-107 mmol/L Normal CL 104 LAB L501.6100 21.0-3 mmol/L Normal 2.0 CO2 25.0 LAB L501.6200 5-15 Normal GAP 7 Performed By: #### L500.2500 #### [facility] [address] [place], [place], [id number] BEDSIDE GLUCOSE Collected: 11/07/2017 Status: F Source: KINSTON 6:25 AM [facility] REPOSITORY TYPE CODE TESTS RESULT OUT OF REFERENCE UNITS RANGE LAB L501.080 70-110 mg/dL High BEDSIDE GLU 126 Result Comment: MANAGEMENT OF PATIENT CARE PER NURSING PROTOCOL Performed By: #### L501.080 #### [facility] Point of Care [address] [facility] [place] [place] [address] MRSA WOUND DNA BY Collected: 11/06/2017 Status: F Source: BRENDA PCR 11:05 PM [facility] REPOSITORY Order Comment: Specimen Source? LEFT LEG WOUND TYPE CODE TESTS RESULT OUT OF RANGE REFERENCE UNITS LAB L8200.1100 Negative Normal MRSA Negative RESULT LAB L8200.1150 Negative Normal SA RESULT NEGATIVE Performed By: #### L8200.1075 #### [facility] [address] [place] [address], [address] BEDSIDE GLUCOSE Collected: 11/06/2017 Status: F Source: BRENDA 10:30 PM [facility] REPOSITORY TYPE CODE TESTS RESULT OUT OF REFERENCE UNITS RANGE LAB L501.080 70-110 mg/dL High BEDSIDE GLU 113 Result Comment: MANAGEMENT OF PATIENT CARE PER NURSING PROTOCOL Performed By: #### L501.080 #### [facility] Point of Care [address] [place] [address] HISTORY AND PHYSICAL Observed: 11/06/2017 Status: F Source: BRENDA EXAM 8:20 PM [facility] REPOSITORY [facility] Medical Records Department [address] [place] [address] History and Physical 11/06/171956 MR#: [id number] Acct: [id number] Name: CARISSA YIP Rep #: [id number] : 1940 77 From: Jose Marc MD PCP: Lambert Larios MD Status: ADM IN Location: OR3 [id number] Problem List (1) Cellulitis of left leg Status: Acute (2) History of pulmonary embolism Status: Chronic (3) Asthma Status: Chronic Qualifiers: Asthma severity: moderate Asthma complication type: uncomplicated (4) Hypertension Status: Chronic Qualifiers: Hypertension type: essential hypertension (5) Open wound of left lower leg Status: Acute Qualifiers: Encounter type: sequela Qualified Code(s): S81.802S - Unspecified open wound, left lower leg, sequela History of Present Illness Date of Admission: 11/06/17 Chief Complaint: Fever, leg pain. Patient is a 77 years old wm who presents with fever and pain in the left leg. He has chronic wound with wound vac, [facility]. He was walking his dog this morning, felt fatigued, and had an episode of chills. He had visiting nurse later in the morning, when his temp was 99. Later, he presented [facility], found to have fever or 102.2. He was sent to ED. Mild erythema surrounding open wound were noted. Temp was 100.4 in the ED, with normal WBC. He had injury with karyn shovel in May this year, had complicated history. Currently, he has wound vac to the wound. Last wound culture on 10/03/17 showed staph lugdunesis and E faecium, sensitive to Augmentin, which he is currently on. Past Medical History Past Medical History (Chronic Problems): Chronic Problems History of pulmonary embolism (Chronic) Iron deficiency anemia (Chronic) Pulmonary nodule (Chronic) HLD (hyperlipidemia) (Chronic) Diverticulosis (Chronic) Asthma (Chronic) Hypertension (Chronic) Avulsion of skin (Chronic) Avulsion of skin of hand (Chronic) Obesity (Chronic) Osteoarthritis (Chronic) Penetrating injury right leg (Chronic) Pain in right leg (Chronic) Right leg swelling (Chronic) History of prostate cancer (Chronic) Allergic rhinitis (Chronic) Rheumatoid arthritis (Chronic) Pleural plaque (Chronic) Macular degeneration (Chronic) GERD (gastroesophageal reflux disease) (Chronic) Prostate ca (Chronic) Allergies indomethacin [From Indocin] Allergy (Verified 11/06/17 14:54) Itching indomethacin sodium [From Indocin] Allergy (Verified 11/06/17 14:54) Itching oxycodone HCl [From Percocet] Allergy (Verified 11/06/17 14:54) Itching Home Medications: Ambulatory Orders Medication Instructions Recorded Albuterol Sulfate [Proventil Hfa] 2 puff IH BID 07/13/13 Azelastine HCl [Astelin] 2 spray NASAL BID 07/13/13 Surgical History: - - Umbilical hernia repair, appendectomy, bilateral carpal tunnel surgery, Prostatectomy, Cataract surgery, L lens implant, L knee surgery followed by LTKR, L shoulder surgery, left total hip replacement. Smoking Status: Never smoker - *Family History Sibling History Items: Diabetes, Renal Disease, - - Patient's father at the age of 76 with history of colon cancer myocardial infarction. Patient's mother at age of 86 with a history of breast cancer. Maternal History Items: Cancer Paternal History Items: Cancer Review of Systems Comment: ROS: In general: he has been feeling well until today, but developed fever and chills as above. HEENT: Unremarkable. Patient denied of any dizziness, chronic headache, blurred vision, double vision, dry mouth, or nasal congestion. CV/respiratory: There is no exertional shortness of breath, chest pain, palpitation, wheezing, cough, claudication, cold feet, or peripheral edema. GI: Patient denied any abdominal pain, nausea, vomiting, diarrhea, constipation, melena, or hematochezia. : Patient denied any significant urinary symptoms. Neurology: Unremarkable. No focal deficit. There is no history of seizure as an adult. Psychological: Unremarkable. No depressed mood or suicidal ideation. No hallucinations. Endocrine: Unremarkable. Musculoskeletal: +chronic open wound of left leg. No muscular wasting, chronic musculoskeletal pain, persisting joint pain, or focal muscular weakness. VTE Information - Inpt Only VTE Present on Admission: No VTE Mechan Device Prophylaxis: None VTE Pharm Prophylaxis ordered?: Yes Patient Problems: Active and Suspected Problems Cellulitis of left leg (Acute) Leg swelling (Acute) 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 (Acute) Anemia (Acute) Traumatic wound (Acute) Open wound of left lower extremity (Acute) Fever (Acute) Traumatic open wound of left lower leg (Acute) Open wound of left lower leg (Acute) Open wound (Acute) Avulsion of skin of right lower leg (Acute) Objective: In general, patient is a well-nourished and developed adult. HEENT: Head is atraumatic, and normocephalic. Pupils are equal, round, and reactive to light and accommodations. Neck is supple. There is no lymphadenopathy, or thyromegaly. Oral mucosa is pink, and moist. There are no lesions. Heart: Auscultation is normal with regular rhythm and rate. There is no extra heart sounds, or murmurs. S1 and S2 are present. Point of maximal impulse is not displaced. Lungs: Lungs are clear to auscultation bilaterally. There is no wheezing, or crackles. Abdomen: Abdominal wall is non-tender, and non-distended. There is no palpable mass or organomegaly. Normoactive bowel sounds are present. Extremities: There is no cyanosis or clubbing. Peripheral pulses are palpable. There is no edema. Skin: Wound Vac in place, left distal leg. Mild erythema surrounding the wound, extending to just below knee anteriorly, and up to mid thigh posteriorly. Neurological: CN II - XII are intact. Sensory and motor functions are grossly normal with no obvious deficit. Cerebellar functions are within normal range. Gait was not tested. - Physical Exam Vital Signs Temp Pulse Resp BP Pulse Ox 98.1 F 96 16 115/72 96 11/06/17 19:00 11/06/17 19:00 11/06/17 19:00 11/06/17 19:00 11/06/17 19:00 Oxygen Delivery Method Room Air Weight: 204 lb 12.951 oz Body Mass Index (BMI) 34.1 Assessment/Plan All Active Problems Cellulitis of left leg (Acute) Abscess of left leg (Acute) Leg swelling (Acute) 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 (Acute) Anemia (Acute) Traumatic wound (Acute) Open wound of left lower extremity (Acute) Fever (Acute) Traumatic open wound of left lower leg (Acute) Open wound of left lower leg (Acute) Open wound (Acute) Avulsion of skin of right lower leg (Acute) Abscess of right leg (Resolved) Patient is a 77 years old wm who presents with fever and pain in the left leg. He has chronic wound with wound vac, [facility]. He was walking his dog this morning, felt fatigued, and had an episode of chills. He had visiting nurse later in the morning, when his temp was 99. Later, he presented to [facility], found to have fever or 102.2. He was sent to ED. Mild erythema surrounding open wound were noted. Temp was 100.4 in the ED, with normal WBC. He had injury with karyn shovel in May this year, had complicated history. Currently, he has wound vac to the wound. Last wound culture on 10/03/17 showed staph lugdunensis and E faecium, sensitive to Augmentin, which he is currently on. #1 Cellulitis left leg. Open wound from injury in May 2017. With open wound. He has been taking Augmentin. No MRSA from previous cultures. He was started on Zosyn empirically. Continue. Consult ID in AM. Consultation requested. Blood culture obtained in ED. Await results. Monitor CBC. #2 Asthma, mild persistent. Continue home medications. #3 Essential hypertension. Continue lisinopril. #4 Chronic iron deficiency anemia. Hgb 11.2, stable. Monitor CBC. Continue iron supplement. #5 History of pulmonary emboli. He was on anticoagulation, but it is on hold pending further work up per hematology. Use SQ heparin during the hospital stay. VTE prophylaxis: Heparin SQ. GI prophylaxis: PPI po. He is full code. Code status discussed. Disposition: Home when stable. Code Visit Inpatient E AND M: 28642 Init Hosp L3 11/06/172019 <Electronically signed by Jose Marc MD> Date Jose Marc MD Cosign Signature: Date (if applicable) CC: Lambert Larios MD; Jose Marc M.D. Signed EMERGENCY DEPARTMENT Observed: 11/06/2017 Status: F Source: [place] SUMMARY 5:17 PM [facility] REPOSITORY [facility] Medical Records Department [address] [id number] Emergency Department Summary 11/06/17 1544 MR#: [id number] Acct: [id number] Name: CARISSA YIP Rep #: [id number] : 1940 77 From: Boogie Weeks PCP: Lambert Larios MD Status: REG ER - ER Visit Summary Date of Service: 11/06/17 Chief Complaint: Fever History of Present Illness: The patient is a 77 M fever 102.2 orally today. Mild cough. Patient dealing with left lower extremity infection due to an injury back in August. Currently has a wound VAC. Followed by Dr. Cooper at the wound center. Home health nurse came today, changed to wound VAC, initial temp of 99, total increase to be seen. He went to the wound clinic and was sent here due to redness of the leg. He had a UA at the facility that was negative. Denies any nausea or vomiting. Patient finish antibiotics little over a week ago for infection. Denies any dyspnea or chest pains. Patient taken off Xarelto in August of this year for history of PE. He states he had a nuclear imaging in September that was negative. No medications taken prior to arrival. Physical Examination: Vitals: Temperature 100.4, heart rate 107 General: Alert and oriented 3, no acute distress HEENT: Normocephalic, atraumatic. Moist mucosa membranes Neck: supple, nontender. Cardiovascular: Regular rate tachycardic and rhythm, no murmurs Respiratory: Normal breath sounds, symmetric, no distress Abdomen: Soft, nontender, nondistended Extremities: Left lower extremity: There is wound VAC left lower lateral leg with surrounding erythema nearly circumferential. There is streaking up the back of the thigh. No swelling. Pulses intact distally. There is no active drainage. Neuro: no focal neurological deficits. Test Results: [] Emergency Department Course and Treatment: EKG: Sinus tachycardia, rate of 103, no ST changes. Isolated T-wave inversion in leads III. White count 9.9. Hemoglobin 11.2. Potassium 4.5. INR 1.1. Lactate 1.5. Blood cultures pending. Chest x-ray: No acute process. Treatment Plan: Patient febrile, tachycardic in the ED. Sepsis protocol initiated. He clinically has worsening left lower extremity cellulitis. He was started on Zosyn. Review of his records from his wound cultures there was no MRSA. He was given Tylenol for his fever. Labs are stable. Chest x-ray reviewed myself was negative. He reported urine in the office at the clinic which was negative and he denies any symptoms. On reevaluation the erythema that was outlined actually past the line. He remains nontoxic, blood pressure stable. I did speak with hospitalist for admission due to worsening recurrent cellulitis. Disposition: Admission Impression: 1. Recurrent left lower extremity cellulitis 2. Fever This note was generated with Nolioation software. It may contain incorrect words, spelling, and punctuation that were not noted in review of the chart prior to signing ED Disposition - Plan for ED Patient: Disposition: Acute Care Hospital [facility] Chief Complaint: Wound Diagnosis: Left leg cellulitis, Fever Referrals: Lambert Larios MD [Primary Care Provider] - What to do if you have Problems For any increased pain, shortness of breath, bleeding, nausea or vomiting, chest pain, or any unexpected problems, contact your Primary Care Provider. Call [facility] ([phone]) or report to the closest Emergency Room. Call 911 if necessary. 11/06/17 0455 <Electronically signed by Boogie Weeks> Date Boogie Weeks Cosigner Signature (If Indicated): Date CC: Lambert Larios MD Observed: 11/06/2017 Status: F Source: [place] CULTURE, BLOOD (WB) 4:25 PM [facility] REPOSITORY BC No growth in 5 days. Performed By: #### M200.1000 #### [facility] [place], [address] CBC W/DIFF, AUTOMATED Collected: 11/06/2017 Status: F Source: [place] 4:05 PM [facility] REPOSITORY TYPE CODE TESTS RESULT OUT OF RANGE REFERENCE UNITS LAB L100.1000 4.4-11.0 K/mm3 Normal WBC 9.9 LAB L100.1200 4.6-6.2 M/mm3 Low RBC 4.01 LAB L100.1300 13.0-16.5 g/dl Low HGB 11.2 LAB L100.1400 40-54 % Low HCT 35.1 LAB L100.1500 80-94 fL Normal MCV 87.5 LAB L100.1600 27.0-32.0 pg Normal MCH 27.9 LAB L100.1700 32-36 g/gl Low MCHC 31.9 LAB L100.1810 11.6-14.6 % High RDW CV 15.3 LAB L100.1820 35.1-43.9 fl High RDW SD 48.5 LAB L100.1900 150-450 K/mm3 Normal PLT 236 LAB L100.2000 6.2-12.0 fl Normal MPV 9.9 LAB L100.2100 47-70 % High NEUT% 82.6 LAB L100.2200 19-41 % Low LY% 6.7 LAB L100.2300 0-10 % Normal MONO% 9.0 LAB L100.2400 0-5 % Normal EO% 1.2 LAB L100.2500 0-1 % Normal BASO% 0.1 LAB L100.2550 0.0-0.9 % Normal IM GRAN % 0.400 Result Comment: IG% - Immature Granulocytes (promyelocytes, myelocytes and metamyelocytes) > 1% indicates that a LEFT SHIFT is Present. LAB L100.2620 2.0-7.7 X10 3/uL High Absolute Neut 8.2 LAB L100.2720 0.83-4.51 X10 3/ul Low Absolute Lymph 0.66 Performed By: #### L100.0100 #### [facility] [address] [place], [place], [id number] PROTHROMBIN TIME W/INR Collected: 11/06/2017 Status: F Source: [place] 4:05 PM [facility] REPOSITORY TYPE CODE TESTS RESULT OUT OF RANGE REFERENCE UNITS LAB L300.4150 11.7-14.9 SECONDS Normal PROTIME 13.8 LAB L300.4200 Normal INR 1.1 Performed By: #### L300.3900, L300.4310 #### [facility] [address] [place], [address] PARTIAL THROMBOPLAST Collected: 11/06/2017 Status: F Source: [place] TIME 4:05 PM [facility] REPOSITORY TYPE CODE TESTS RESULT OUT OF RANGE REFERENCE UNITS LAB L300.4310 24.1-36.2 Seconds Normal PTT 32.6 Performed By: #### L300.3900, L300.4310 #### [facility] [address] [place], [address] COMPREHENSIVE METABOLIC Collected: 11/06/2017 Status: F Source: [place] PROFIL 4:05 PM [facility] REPOSITORY TYPE CODE TESTS RESULT OUT OF RANGE REFERENCE UNITS LAB L501.0100 74-106 mg/dL High GLU 110 Result Comment: Fasting Glucose result from 100 to 125 mg/dL suggests IMPAIRED HOMEOSTASIS per A.D.A. criteria. Please note revised GLUCOSE reference range effective 2017. LAB L501.1000 7-18 mg/dL Normal BUN 15 LAB L501.1100 0.70-1.30 mg/dL Normal CREAT,SERUM 1.14 Result Comment: The validity of the calculated GFR AND GFRAA in patients over 70 years has not been determined. Clinical correlation is essential. LAB L501.1110 >60 mL/min Normal EST GFR 66 Result Comment: Non- GFR Calc LAB L501.1115 >60 mL/min Normal EST GFR - AA 80 Result Comment: GFR Calc LAB L501.1255 ml/min Normal Estimated CRCL 45.71 LAB L501.1300 10-20 RATIO Normal BUN/CRE 13.2 LAB L501.1500 6.4-8. g/dL Normal 2 T PROT 8.2 LAB L501.1800 3.2-5. g/dL Normal 0 ALB 3.4 LAB L501.1950 2.2-4. g/dL High 2 GLOB 4.8 LAB L501.2000 0.9-2. RATIO Low 4 A/G 0.7 LAB L501.2200 8.5-10 mg/dL Normal .1 CA 8.9 LAB L501.4100 15-37 U/L Normal AST 23 LAB L501.4305 45-117 U/L Normal ALK P 91 LAB L501.4405 16-61 U/L Normal ALT 24 LAB L501.4600 0.20-1 mg/dL Normal .00 T BILI 0.50 LAB L501.5300 136-14 mmol/L Low 5 NA 135 LAB L501.5600 3.5-5. mmol/L Normal 1 K 4.5 LAB L501.5900 98-107 mmol/L Normal CL 104 LAB L501.6100 21.0-3 mmol/L Normal 2.0 CO2 24.0 LAB L501.6200 5-15 Normal GAP 7 Performed By: #### L500.4050 #### [facility] [place], [address] LACTIC ACID Collected: 11/06/2017 Status: F Source: [place] 4:05 PM [facility] REPOSITORY Order Comment: Yes/No query for Sepsis Lactate Rule Y TYPE CODE TESTS RESULT OUT OF RANGE REFERENCE UNITS LAB L503.6005 0.4-2.0 mmol/L Normal LACTIC ACID 1.5 Performed By: #### L503.6005 #### [facility] [address] [place], [address] Observed: 11/06/2017 Status: F Source: [place] CULTURE, BLOOD (WB) 4:05 PM [facility] REPOSITORY BC No growth in 5 days. Performed By: #### M200.1000 #### [facility] [address] [place], [place], [address] CHEST PA AND LATERAL Observed: 11/06/2017 Status: F Source: [place] 3:43 PM [facility] REPOSITORY [facility] Imaging Services [address] [address] Chest PA and Lateral MR#: [id number] Acct: [id number] Name: CARISSA YIP Rep #: [id number] : 1940 M 77 From: Chapo Samuel MD PCP: Lambert Larios MD Status: REG ER Study: Chest PA and Lateral Date of Exam: 11/06/17 Exam# [id number] Ordering Dr: Boogie Rodriguez DO STUDY: X-RAY CHEST REASON FOR EXAM: Male, 77 years old. Febrile TECHNIQUE: PA and lateral COMPARISON: June 22, 2017 FINDINGS: There is elevation right hemidiaphragm. There is mild interstitial thickening at both lung bases.. There is multifocal calcific pleural plaquing. Heart is mildly enlarged. Normal mediastinum and mamadou. Normal visualized pulmonary arteries. Tortuous mildly calcified aortic arch and descending thoracic aorta. Dorsal spine demonstrates scoliosis and degenerative change. Normal visualized ribs, clavicles, and shoulders. There is no demonstrated abnormality of the visualized soft tissue structures of the upper abdomen. There is improved aeration of both lung bases since prior exam. RAD/Chest PA and Lateral IMPRESSION: Mild interstitial thickening in the lower lobes with chronic calcific pleural plaquing. No acute cardiopulmonary pathology Electronically Signed: Chapo Samuel MD at 17:22 EDT , Service support , CC: Boogie Rodriguez; Lambert Larios MD Orthotics Prosthetics Assistant: Signed PROGRESS Observed: 11/06/2017 Status: COMPLETED Source: [place] 2:33 PM [facility] REPOSITORY O ID: [id number] Author: Elena (Director Of Retail Merchandising) Older Service: (none) Author Type: Nurse Practitioner Type: Progress Notes Filed: 11/06/2017 2:48 PM Note Text: CC: Fever HPI Carissa Yip is a 77 year old male who presents today with his for fever. Patient states he was walking the dog this morning and became extremely tired and was SOB which is not normal for him. His home health nurse came later that morning to change his wound VAC dressing and checked his temperature which was 101.5. Per patient wound nurse reported wound to left lower leg looked good and drainage was normal but skin around wound was hot and red. He checked his temperature a little later and was 102.2. Patient states he is unsure if skin around wound looks any different because he can't see very well. It is very hot to the touch though and painful. Positive for chills, fatigue, achy. Wound VAC to left lower leg managed by [facility] wound center and home health. Patient had appointment on Friday at wound center, no mention of possible infection. Patient also has history of PE. Has been off anticoagulants for a few months. REVIEW OF SYSTEMS Respiratory: no cough, no wheezing, no shortness of breath, no hemoptysis Cardiovascular: no chest pain, no chest pressure and no palpitations GI: Negative for abdominal discomfort, diarrhea, nausea, vomiting : Negative for dysuria, frequency, hematuria, hesitancy and urgency PAST MEDICAL HISTORY Diagnosis Date - Anxiety state, unspecified - Benign neoplasm of colon - Chronic rhinitis - Colon polyp 10/2014 - Depressive disorder, not elsewhere classified - Diabetes mellitus type 2, controlled, without complications (HCC) 08/25/2017 - Diverticulosis of colon (without mention of hemorrhage) - Esophageal reflux - Family history of malignant neoplasm of gastrointestinal tract - GENERAL OSTEOARTHROSIS 04/08/2008 - Gout 04/01/2011 - HYPERGLYCEMIA 07/19/2005 - HYPERLIPIDEMIA NEC/NOS 07/19/2005 - HYPERTENSION NOS 09/03/2007 - Hypertrophy of prostate without urinary obstruction and other lower urinary tract symptoms (LUTS) - Impaired fasting blood sugar 07/19/2005 - Internal hemorrhoids without mention of complication - IRON DEFIC ANEMIA NEC 07/19/2005 - Macular degeneration (senile) of retina, unspecified - MALIGN NEOPL PROSTATE 05/23/2005 - Other pulmonary embolism without acute cor pulmonale (HCC) 01/27/2017 - Personal history of colonic polyps - Pulmonary embolism (HCC) - Pulmonary hypertension 01/30/2017 - PULMONARY NODULES 06/03/2006 - Rosacea 02/25/2007 - Skin cancer of face [facility] [place]. - Unspecified asthma(493.90) PAST SURGICAL HISTORY Procedure Laterality Date - APPENDECTOMY 11-02-14 - COLONOS W/REM POLYP SNARE 07/25/05 - COLONOS W/REM POLYP SNARE 01/17/11 - COLONOSCOP W/ OR W/O [facility] SPEC 07/28/14 Colonoscopy - COLONOSCOP W/ OR W/O [facility] SPEC 12-20-15 - COLONOSCOPY - DIAGNOSTIC 03/02/2003 - DEBRIDEMENT WOUND 21+ SQ CM Left 09/12/2017 Left leg abcess s/pt traumatic wound. - EGD W/O OR W/BRUSH/WASH 04/17/15 EGD - KNEE SCOPE,DIAGNOSTIC 1998 LEFT - LAP COLECTMY W/ILEUM/ILEOCOL 11-02-14 WITH INCISIONAL HERNIA REPAIR - LAPAROSCOPIC HEMICOLECTOMY 11-02-14 - REMV PROSTATE,PERINEAL,RADICAL 11/28/2003 - REPAIR ROTATOR CUFF,ACUTE 03/04/2002 Rotator cuff repair Left - REPAIR UMBILICAL BAKARI,5+Y/O,REDUC 03/01/1996 Hernia repair, umbilical >5yr - REVISE MEDIAN N/CARPAL TUNNEL SURG Bilateral 1994 Carpal tunnel decomp; , - TOTAL HIP REPLACEMENT 07/26/2013 Hip replacement, total, LEFT, Dr. Rojas - TOTAL KNEE REPLACEMENT 06/2008 left knee ALLERGIES Indocin [Indomethacin Sodium]; Percocet [Oxycodone-Acetaminophen]; Seasonal Allergies MEDICATIONS fluticasone (FLONASE) 50 mcg/actuation nasal spray instill 2 sprays into each nostril twice a day furosemide (LASIX) 40 mg tablet Take 1 tablet by mouth once daily for 7 days. sertraline (ZOLOFT) 100 mg tablet Take 1.5 tablets by mouth once daily. montelukast (SINGULAIR) 10 mg tablet Take 1 tablet by mouth daily at bedtime. nitroglycerin sublingual (NITROQUICK) 0.4 mg SL tablet Dissolve 1 tablet under the tongue every 5 minutes as needed for Chest Pain. guaiFENesin (MUCINEX) 600 mg 12 hr tablet Take 1 tablet by mouth twice daily. ADVAIR HFA 230-21 mcg/actuation inhaler take 2 inhalations by mouth twice a day Rinse mouth after use omeprazole (PRILOSEC) 20 mg capsule Take 1 capsule by mouth daily before breakfast. 1/2 hr before meal. lisinopril (ZESTRIL, PRINIVIL) 20 mg tablet Take 1 tablet by mouth once daily. atorvastatin (LIPITOR) 10 mg tablet take 1 tablet by mouth at bedtime leflunomide (ARAVA) 10 mg tablet Take 10 mg by mouth once daily. VENTOLIN HFA 90 mcg/actuation inhaler inhale 2 puffs every 4 hours if needed SPIRIVA WITH HANDIHALER 18 mcg inhalation capsule inhale the contents of one capsule in the handihaler once daily nystatin-triamcinolone (MYCOLOG II) cream Apply 1 application to affected area twice daily as needed. Genital rash. azelastine (ASTELIN,ASTEPRO) 0.1% nasal spray instill 2 sprays into each nostril twice a day ipratropium-albuterol (DUONEB) 0.5 mg-3 mg(2.5 mg base)/3 mL nebu Inhale 3 mL as instructed four times daily as needed. by nebulizer over 5 to 15 minutes. COMPOUNDED PRESCRIPTION Polypodium Leucotomos extract (Daily Defense). Take 2 capsules once a day. 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 EPINEPHrine (EPIPEN) 0.3 mg/0.3 mL auto-injector Inject 0.3 mL intramuscularly as needed. albuterol HFA (PROVENTIL HFA) 90 mcg/actuation inhaler Inhale 2 Puffs as instructed. polyethylene glycol 3350 (MIRALAX, GLYCOLAX) 17 gram/dose powder Take 17 g by mouth once daily. Take one (1) capful in 8oz of liquid each day. ferrous sulfate 325 mg (65 mg iron) tablet Take one(1) tablet two(2) times daily. ipratropium (ATROVENT) 0.02 % nebulizer solution 500 mcg (one ampule) nebulized four times a day as needed. Vitamin A-Vit C-Vit E-Zinc-Cu (OCUVITE PRESERVISION) ORAL Tab Take one(1) tablet two(2) times daily. FAMILY HISTORY Problem Relation Age of Onset - Diabetes Father - Colon Cancer Father - Asthma Mother - Colon Cancer Sister - Diabetes Sister - Colon Cancer Other Social History Substance Use Topics - Smoking status: Never Smoker - Smokeless tobacco: Never Used Comment: Father smoked in childhood home. No household smoke exposure since. 05/2014. - Alcohol use No PHYSICAL EXAM BP 160/80 Pulse 108 Temp 37.8 ?C (100.1 ?F) (Temporal Artery) Resp 16 Wt 93.4 kg (206 lb) SpO2 95% BMI 33.50 kg/m? General Appearance: in no acute distress, alert, appears ill and fatigued Skin: Increased warmth Lungs: Lungs clear to auscultation. No wheezing, rhonchi, rales Heart: RRR without murmur, gallop, or rubs. No ectopy Abdomen: Abdomen soft, non-tender. Bowel sounds normal. Negative CVA tenderness Ext: Wound VAC in place left lateral lower leg. Large surrounding area of swelling, erythema and hot to the touch. Tender with palpation. ASSESSMENT/PLAN: 1. Fever, unspecified fever cause - ICD9: 780.60, ICD10: R50.9 (primary diagnosis) Symptoms and exam findings concerning for cellulitis with possible sepsis TC to [facility] wound center, spoke with clinical nurse coating manager. Read through Dr. Cooper's notes from appointment and was also in the room during appointment, no signs of infection. - UA DIP B/O negative for infection Discussed with patient and , advised further evaluation in ER; may need IV antibiotic therapy. They are agreeable and will go to [facility] ER now. 2. Malaise and fatigue - ICD9: 780.79, ICD10: R53.81, R53.83 As above 3. Localized swelling of lower leg - ICD9: 729.81, ICD10: R22.40 Cellulitis vs DVT Plan as above 4. Localized erythema - ICD9: 695.9, ICD10: L53.9 As above 5. Wound of left lower extremity, subsequent encounter - ICD9: V58.89, 894.0, ICD10: S81.802D As above Elena Monterroso APRN.CNP CNOV Observed: 11/06/2017 Status: COMPLETED Source: [place] 2:00 PM [facility] REPOSITORY Office Visit (INTMWS) ALANCARISSA GIRALDO ([id number]) 1940 M Date Time Provider Department 11/06/17 2:00 PM ELENA MONTERROSO (PETROS) INTMWS During your visit today, we recorded the following information about you: Temperature Pulse Respiration Blood pressure 100.1 degrees 108/minute 16/minute 160/80 Weight 93.4 kg Elena Monterroso APRN.CNP 11/06/2017 2:48 PM Signed CC: Fever HPI Carissa Yip is a 77 year old male who presents today with his for fever. Patient states he was walking the dog this morning and became extremely tired and was SOB which is not normal for him. His home health nurse came later that morning to change his wound VAC dressing and checked his temperature which was 101.5. Per patient wound nurse reported wound to left lower leg looked good and drainage was normal but skin around wound was hot and red. He checked his temperature a little later and was 102.2. Patient states he is unsure if skin around wound looks any different because he can't see very well. It is very hot to the touch though and painful. Positive for chills, fatigue, achy. Wound VAC to left lower leg managed by [facility] wound center and home health. Patient had appointment on Friday at wound center, no mention of possible infection. Patient also has history of PE. Has been off anticoagulants for a few months. REVIEW OF SYSTEMS Respiratory: no cough, no wheezing, no shortness of breath, no hemoptysis Cardiovascular: no chest pain, no chest pressure and no palpitations GI: Negative for abdominal discomfort, diarrhea, nausea, vomiting : Negative for dysuria, frequency, hematuria, hesitancy and urgency PAST MEDICAL HISTORY Diagnosis Date - Anxiety state, unspecified - Benign neoplasm of colon - Chronic rhinitis - Colon polyp 10/2014 - Depressive disorder, not elsewhere classified - Diabetes mellitus type 2, controlled, without complications (HCC) 08/25/2017 - Diverticulosis of colon (without mention of hemorrhage) - Esophageal reflux - Family history of malignant neoplasm of gastrointestinal tract - GENERAL OSTEOARTHROSIS 04/08/2008 - Gout 04/01/2011 - HYPERGLYCEMIA 07/19/2005 - HYPERLIPIDEMIA NEC/NOS 07/19/2005 - HYPERTENSION NOS 09/03/2007 - Hypertrophy of prostate without urinary obstruction and other lower urinary tract symptoms (LUTS) - Impaired fasting blood sugar 07/19/2005 - Internal hemorrhoids without mention of complication - IRON DEFIC ANEMIA NEC 07/19/2005 - Macular degeneration (senile) of retina, unspecified - MALIGN NEOPL PROSTATE 05/23/2005 - Other pulmonary embolism without acute cor pulmonale (HCC) 01/27/2017 - Personal history of colonic polyps - Pulmonary embolism (HCC) - Pulmonary hypertension 01/30/2017 - PULMONARY NODULES 06/03/2006 - Rosacea 02/25/2007 - Skin cancer of face [facility]. - Unspecified asthma(493.90) PAST SURGICAL HISTORY Procedure Laterality Date - APPENDECTOMY 11-02-14 - COLONOS W/REM POLYP SNARE 07/25/05 - COLONOS W/REM POLYP SNARE 01/17/11 - COLONOSCOP W/ OR W/O [facility] SPEC 07/28/14 Colonoscopy - COLONOSCOP W/ OR W/O [facility] SPEC 12-20-15 - COLONOSCOPY - DIAGNOSTIC 03/02/2003 - DEBRIDEMENT WOUND 21+ SQ CM Left 09/12/2017 Left leg abcess s/pt traumatic wound. - EGD W/O OR W/BRUSH/WASH 04/17/15 EGD - KNEE SCOPE,DIAGNOSTIC 1998 LEFT - LAP COLECTMY W/ILEUM/ILEOCOL 11-02-14 WITH INCISIONAL HERNIA REPAIR - LAPAROSCOPIC HEMICOLECTOMY 11-02-14 - REMV PROSTATE,PERINEAL,RADICAL 11/28/2003 - REPAIR ROTATOR CUFF,ACUTE 03/04/2002 Rotator cuff repair Left - REPAIR UMBILICAL BAKARI,5+Y/O,REDUC 03/01/1996 Hernia repair, umbilical >5yr - REVISE MEDIAN N/CARPAL TUNNEL SURG Bilateral 1993 Carpal tunnel decomp; , - TOTAL HIP REPLACEMENT 07/26/2013 Hip replacement, total, LEFT, Dr. Rojas - TOTAL KNEE REPLACEMENT 06/2008 left knee ALLERGIES Indocin [Indomethacin Sodium]; Percocet [Oxycodone-Acetaminophen]; Seasonal Allergies MEDICATIONS fluticasone (FLONASE) 50 mcg/actuation nasal spray instill 2 sprays into each nostril twice a day furosemide (LASIX) 40 mg tablet Take 1 tablet by mouth once daily for 7 days. sertraline (ZOLOFT) 100 mg tablet Take 1.5 tablets by mouth once daily. montelukast (SINGULAIR) 10 mg tablet Take 1 tablet by mouth daily at bedtime. nitroglycerin sublingual (NITROQUICK) 0.4 mg SL tablet Dissolve 1 tablet under the tongue every 5 minutes as needed for Chest Pain. guaiFENesin (MUCINEX) 600 mg 12 hr tablet Take 1 tablet by mouth twice daily. ADVAIR HFA 230-21 mcg/actuation inhaler take 2 inhalations by mouth twice a day Rinse mouth after use omeprazole (PRILOSEC) 20 mg capsule Take 1 capsule by mouth daily before breakfast. 1/2 hr before meal. lisinopril (ZESTRIL, PRINIVIL) 20 mg tablet Take 1 tablet by mouth once daily. atorvastatin (LIPITOR) 10 mg tablet take 1 tablet by mouth at bedtime leflunomide (ARAVA) 10 mg tablet Take 10 mg by mouth once daily. VENTOLIN HFA 90 mcg/actuation inhaler inhale 2 puffs every 4 hours if needed SPIRIVA WITH HANDIHALER 18 mcg inhalation capsule inhale the contents of one capsule in the handihaler once daily nystatin-triamcinolone (MYCOLOG II) cream Apply 1 application to affected area twice daily as needed. Genital rash. azelastine (ASTELIN,ASTEPRO) 0.1% nasal spray instill 2 sprays into each nostril twice a day ipratropium-albuterol (DUONEB) 0.5 mg-3 mg(2.5 mg base)/3 mL nebu Inhale 3 mL as instructed four times daily as needed. by nebulizer over 5 to 15 minutes. COMPOUNDED PRESCRIPTION Polypodium Leucotomos extract (Daily Defense). Take 2 capsules once a day. 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 EPINEPHrine (EPIPEN) 0.3 mg/0.3 mL auto-injector Inject 0.3 mL intramuscularly as needed. albuterol HFA (PROVENTIL HFA) 90 mcg/actuation inhaler Inhale 2 Puffs as instructed. polyethylene glycol 3350 (MIRALAX, GLYCOLAX) 17 gram/dose powder Take 17 g by mouth once daily. Take one (1) capful in 8oz of liquid each day. ferrous sulfate 325 mg (65 mg iron) tablet Take one(1) tablet two(2) times daily. ipratropium (ATROVENT) 0.02 % nebulizer solution 500 mcg (one ampule) nebulized four times a day as needed. Vitamin A-Vit C-Vit E-Zinc-Cu (OCUVITE PRESERVISION) ORAL Tab Take one(1) tablet two(2) times daily. FAMILY HISTORY Problem Relation Age of Onset - Diabetes Father - Colon Cancer Father - Asthma Mother - Colon Cancer Sister - Diabetes Sister - Colon Cancer Other Social History Substance Use Topics - Smoking status: Never Smoker - Smokeless tobacco: Never Used Comment: Father smoked in childhood home. No household smoke exposure since. 05/2014. - Alcohol use No PHYSICAL EXAM BP 160/80 Pulse 108 Temp 37.8 ?C (100.1 ?F) (Temporal Artery) Resp 16 Wt 93.4 kg (206 lb) SpO2 95% BMI 33.50 kg/m? General Appearance: in no acute distress, alert, appears ill and fatigued Skin: Increased warmth Lungs: Lungs clear to auscultation. No wheezing, rhonchi, rales Heart: RRR without murmur, gallop, or rubs. No ectopy Abdomen: Abdomen soft, non-tender. Bowel sounds normal. Negative CVA tenderness Ext: Wound VAC in place left lateral lower leg. Large surrounding area of swelling, erythema and hot to the touch. Tender with palpation. ASSESSMENT/PLAN: 1. Fever, unspecified fever cause - ICD9: 780.60, ICD10: R50.9 (primary diagnosis) Symptoms and exam findings concerning for cellulitis with possible sepsis TC to [facility] wound center, spoke with clinical nurse coating manager. Read through Dr. Cooper's notes from appointment and was also in the room during appointment, no signs of infection. - UA DIP B/O negative for infection Discussed with patient and , advised further evaluation in ER; may need IV antibiotic therapy. They are agreeable and will go to [facility] ER now. 2. Malaise and fatigue - ICD9: 780.79, ICD10: R53.81, R53.83 As above 3. Localized swelling of lower leg - ICD9: 729.81, ICD10: R22.40 Cellulitis vs DVT Plan as above 4. Localized erythema - ICD9: 695.9, ICD10: L53.9 As above 5. Wound of left lower extremity, subsequent encounter - ICD9: V58.89, 894.0, ICD10: S81.802D As above Elena Monterroso APRN.SIGNAL OPERATOR Referring Provider: SELF [[id number]] Allergies As of Date: 11/06/2017 Noted Allergy Reaction INDOCIN (INDOMETHACIN SODIUM) 04/01/2011 14 - Other: See Comments Comments: Wheezing, can take naprosyn PERCOCET (OXYCODONE-ACETAMINOPHEN)01/08/2005 9 - Itching SEASONAL ALLERGIES 11/12/2012 14 - Other: See Comments Comments: Cat, Goats, Dust mites, molds, trees, grasses, weed, ragweed Date Reviewed: 11/06/2017 Reviewed by: Kait Velazquez Senior Structural Engineer - Fully Assessed Reason for Visit: Fever [47] Primary Visit Diagnosis:Fever, unspecified fever cause [R50.9] Other Visit Diagnoses:Malaise and fatigue [R53.81, R53.83] Localized swelling of lower leg [R22.40] Localized erythema [L53.9] Wound of left lower extremity, subsequent encounter [S81.802D] Order(s):UA DIP B/O [[id number]] Order #: [id number] Prescriptions as of 11/06/2017 Sig: FLUTICASONE 50 MCG/ACTUATION * instill 2 sprays into each no* FUROSEMIDE 40 MG TABLET Take 1 tablet by mouth once d* SERTRALINE 100 MG TABLET Take 1.5 tablets by mouth onc* MONTELUKAST 10 MG TABLET Take 1 tablet by mouth daily * NITROGLYCERIN 0.4 MG SUBLINGU* Dissolve 1 tablet under the t* GUAIFENESIN ER 600 MG TABLET,* Take 1 tablet by mouth twice * ADVAIR HFA 230 MCG-21 MCG/ACT* take 2 inhalations by mouth t* OMEPRAZOLE 20 MG CAPSULE,ALEX* Take 1 capsule by mouth daily* LISINOPRIL 20 MG TABLET Take 1 tablet by mouth once d* ATORVASTATIN 10 MG TABLET take 1 tablet by mouth at bed* LEFLUNOMIDE 10 MG TABLET Take 10 mg by mouth once christiano* VENTOLIN HFA 90 MCG/ACTUATION* inhale 2 puffs every 4 hours * SPIRIVA WITH HANDIHALER 18 MC* inhale the contents of one ca* NYSTATIN-TRIAMCINOLONE 100,00* Apply 1 application to affect* AZELASTINE 137 MCG (0.1 %) NA* instill 2 sprays into each no* IPRATROPIUM-ALBUTEROL 0.5 MG-* Inhale 3 mL as instructed fou* COMPOUNDED PRESCRIPTION Polypodium Leucotomos extract* EPINEPHRINE 0.3 MG/0.3 ML INJ* Inject 0.3 mL intramuscularly* ALBUTEROL SULFATE HFA 90 MCG/* Inhale 2 Puffs as instructed. POLYETHYLENE GLYCOL 3350 17 G* Take 17 g by mouth once daily* FERROUS SULFATE 325 MG (65 MG* Take one(1) tablet two(2) link* Patient taking differently: Take 325 mg by mouth once winnie* IPRATROPIUM BROMIDE 0.02 % SO* 500 mcg (one ampule) nebulize* PRESERVISION AREDS 7,160 UNIT* Take one(1) tablet two(2) link* Problem List As Of Date 11/06/2017 Noted Resolved Asthma [J45.909] 08/25/2017 CHRONIC RHINITIS [J31.0] BPH without obstruction/lower urinary tract sym* ANXIETY STATE NOS [F41.1] 08/05/2014 Depression with anxiety [F41.8] Diverticulosis of colon (without mention of hem* 10/06/2012 ESOPHAGEAL REFLUX [K21.9] Internal hemorrhoids without mention of complic* 08/30/2010 Malignant neoplasm of prostate (HCC) [C61] INVALID FOR*08/05/2014 MACULAR DEGENERATION NOS [H35.30] Other specified iron deficiency anemias [D50.8] INVALID FOR*08/30/2010 Diabetes mellitus type 2, controlled, without c*INVALID FOR* Hyperlipidemia [E78.5] INVALID FOR* Personal history of colonic polyps [Z86.010] INVALID FOR*09/30/2011 More... FAMILY HX COLON CANCER [Z80.0] INVALID FOR*08/25/2017 PULMONARY NODULES [J98.4] INVALID FOR*10/06/2012 More... 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] INVALID FOR* Essential hypertension [I10] INVALID FOR* Generalized osteoarthritis of multiple sites [M*INVALID FOR* Benign neoplasm of rectum and anal canal [D12.8*INVALID FOR*10/06/2012 Benign neoplasm of colon [D12.6] INVALID FOR* Gout [M10.9] INVALID FOR* Venous insufficiency of leg [I87.2] INVALID FOR* Iron deficiency anemia due to chronic blood los*INVALID FOR* Inflammatory polyarthropathy of multiple sites *INVALID FOR* Unsteady gait [R26.81] INVALID FOR* Uncomplicated severe persistent asthma [J45.50] INVALID FOR* Other pulmonary embolism without acute cor pulm*INVALID FOR* Pulmonary hypertension (HCC) [I27.20] INVALID FOR* Memory disturbance [R41.3] INVALID FOR* Obesity, Class I, BMI 30-34.9 E66.9 [E66.9] INVALID FOR* Open wound of left lower extremity [S81.802A] INVALID FOR* 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 CLINIC NO: [id number]. ATTENDING PHYSICIAN: Daniel Montalvo MD. DATE OF SERVICE:11/05/2017. DIAGNOSIS: history acute pulmonary embolism; and asthma AND pulmonary hypertension Consultation requested by IAN Villalta for an opinion regarding anticoagulation therapy. My final recommendations will be communicated back to the requesting physician by way of shared Medical record or letter to requesting physician via US mail. PERFORMANCE STATUS:80% HPI: this is 77-year-old elderly gentleman with history of pulmonary embolism diagnosed last year and has been placed on Xarelto since January 2017. 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 He had 2 equivocal anticardiolipin antibody results. He has been doing well since he was treated for his pulmonary embolism. Patient has no chest pain, shortness of breath. He can walk a reasonable distant before eating short of breath. Patient has fallen a couple months ago and he is treated for cellulitis and infection of his wound currently. He may also need a skin graft in the near future for wound closure. During his treatment he has no major bleeding complication until his accident. He also has macular degeneration and problems with his eyesight. Patient has EGD AND colonoscopy evaluation for anemia in [address] Chet Jones. He had several and no breast polyp removed from his colon, but his EGD was normal. He does not smoke, or drink alcohol. no family history of thromboembolism. Patient denied weight loss, change in bowel habit, he has skin cancer. He also had a venous doppler study and perfusion lung scan recently both were negative for thromboembolism. He stopped Xarelto last month and patient has no complaints. MEDICATIONS: Current Outpatient Prescriptions: fluticasone (FLONASE) 50 mcg/actuation nasal spray instill 2 sprays into each nostril twice a day sertraline (ZOLOFT) 100 mg tablet Take 1.5 tablets by mouth once daily. montelukast (SINGULAIR) 10 mg tablet Take 1 tablet by mouth daily at bedtime. nitroglycerin sublingual (NITROQUICK) 0.4 mg SL tablet Dissolve 1 tablet under the tongue every 5 minutes as needed for Chest Pain. guaiFENesin (MUCINEX) 600 mg 12 hr tablet Take 1 tablet by mouth twice daily. ADVAIR HFA 230-21 mcg/actuation inhaler take 2 inhalations by mouth twice a day Rinse mouth after use omeprazole (PRILOSEC) 20 mg capsule Take 1 capsule by mouth daily before breakfast. 1/2 hr before meal. lisinopril (ZESTRIL, PRINIVIL) 20 mg tablet Take 1 tablet by mouth once daily. atorvastatin (LIPITOR) 10 mg tablet take 1 tablet by mouth at bedtime leflunomide (ARAVA) 10 mg tablet Take 10 mg by mouth once daily. VENTOLIN HFA 90 mcg/actuation inhaler inhale 2 puffs every 4 hours if needed SPIRIVA WITH HANDIHALER 18 mcg inhalation capsule inhale the contents of one capsule in the handihaler once daily nystatin-triamcinolone (MYCOLOG II) cream Apply 1 application to affected area twice daily as needed. Genital rash. azelastine (ASTELIN,ASTEPRO) 0.1% nasal spray instill 2 sprays into each nostril twice a day ipratropium-albuterol (DUONEB) 0.5 mg-3 mg(2.5 mg base)/3 mL nebu Inhale 3 mL as instructed four times daily as needed. by nebulizer over 5 to 15 minutes. EPINEPHrine (EPIPEN) 0.3 mg/0.3 mL auto-injector Inject 0.3 mL intramuscularly as needed. polyethylene glycol 3350 (MIRALAX, GLYCOLAX) 17 gram/dose powder Take 17 g by mouth once daily. Take one (1) capful in 8oz of liquid each day. ferrous sulfate 325 mg (65 mg iron) tablet Take one(1) tablet two(2) times daily. (Patient taking differently: Take 325 mg by mouth once daily. Take one(1) tablet two(2) times daily. ) ipratropium (ATROVENT) 0.02 % nebulizer solution 500 mcg (one ampule) nebulized four times a day as needed. Vitamin A-Vit C-Vit E-Zinc-Cu (OCUVITE PRESERVISION) ORAL Tab Take one(1) tablet two(2) times daily. furosemide (LASIX) 40 mg tablet Take 1 tablet by mouth once daily for 7 days. (Patient not taking: Reported on 11/05/2017 ) COMPOUNDED PRESCRIPTION Polypodium Leucotomos extract (Daily Defense). Take 2 capsules once a day. 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 albuterol HFA (PROVENTIL HFA) 90 mcg/actuation inhaler Inhale 2 Puffs as instructed. No current facility-administered medications for this visit. . ALLERGIES: ALLERGIES Allergen Reactions - Indocin [Indomethac* Other: See Comments Wheezing, can take naprosyn - Percocet [Oxycodone* Itching - Seasonal Allergies Other: See Comments Cat, Goats, Dust mites, molds, trees, grasses, weed, ragweed . PAST MEDICAL HISTORY: PAST MEDICAL HISTORY Diagnosis Date - Anxiety state, unspecified - Benign neoplasm of colon - Chronic rhinitis - Colon polyp 10/2014 - Depressive disorder, not elsewhere classified - Diabetes mellitus type 2, controlled, without complications (HCC) 08/25/2017 - Diverticulosis of colon (without mention of hemorrhage) - Esophageal reflux - Family history of malignant neoplasm of gastrointestinal tract - GENERAL OSTEOARTHROSIS 04/08/2008 - Gout 04/01/2011 - HYPERGLYCEMIA 07/19/2005 - HYPERLIPIDEMIA NEC/NOS 07/19/2005 - HYPERTENSION NOS 09/03/2007 - Hypertrophy of prostate without urinary obstruction and other lower urinary tract symptoms (LUTS) - Impaired fasting blood sugar 07/19/2005 - Internal hemorrhoids without mention of complication - IRON DEFIC ANEMIA NEC 07/19/2005 - Macular degeneration (senile) of retina, unspecified - MALIGN NEOPL PROSTATE 05/23/2005 - Other pulmonary embolism without acute cor pulmonale (HCC) 01/27/2017 - Personal history of colonic polyps - Pulmonary embolism (HCC) - Pulmonary hypertension 01/30/2017 - PULMONARY NODULES 06/03/2006 - Rosacea 02/25/2007 - Skin cancer of face [facility]. - Unspecified asthma(493.90) . PAST SURGICAL HISTORY: PAST SURGICAL HISTORY Procedure Laterality Date - APPENDECTOMY 11-02-14 - COLONOS W/REM POLYP SNARE 07/25/05 - COLONOS W/REM POLYP SNARE 01/17/11 - COLONOSCOP W/ OR W/O BRSH SPEC 07/28/14 Colonoscopy - COLONOSCOP W/ OR W/O BRS SPEC 12-20-15 - COLONOSCOPY - DIAGNOSTIC 03/02/2003 - DEBRIDEMENT WOUND 21+ SQ CM Left 09/12/2017 Left leg abcess s/pt traumatic wound. - EGD W/O OR W/BRUSH/WASH 04/17/15 EGD - KNEE SCOPE,DIAGNOSTIC 1998 LEFT - LAP COLECTMY W/ILEUM/ILEOCOL 11-02-14 WITH INCISIONAL HERNIA REPAIR - LAPAROSCOPIC HEMICOLECTOMY 11-02-14 - REMV PROSTATE,PERINEAL,RADICAL 11/28/2003 - REPAIR ROTATOR CUFF,ACUTE 03/04/2002 Rotator cuff repair Left - REPAIR UMBILICAL BAKARI,5+Y/O,REDUC 03/01/1996 Hernia repair, umbilical >5yr - REVISE MEDIAN N/CARPAL TUNNEL SURG Bilateral 1993 Carpal tunnel decomp; , - TOTAL HIP REPLACEMENT 07/26/2013 Hip replacement, total, LEFT, Dr. Rojas - TOTAL KNEE REPLACEMENT 06/2008 left knee . FAMILY HISTORY: FAMILY HISTORY Problem Relation Age of Onset - Diabetes Father - Colon Cancer Father - Asthma Mother - Colon Cancer Sister - Diabetes Sister - Colon Cancer Other . 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 Social History Main Topics Smoking status: Never Smoker Smokeless tobacco: Never Used Comment: Father smoked in childhood home. No household smoke exposure since. 05/2014. Alcohol use: No Drug use: No Social History Narrative 2017: Lives with spouse w/ depression. No longer driving since 2013 due to macular degeneration. drives. Ambulatory with cane. Dyspnea on moderate exertion. .REVIEW OF SYSTEMS: CONSTITUTIONAL: No fevers, chills, nightsweats, unintended weight loss HEENT: Denies frequent or severe heaches, nasal congestion/sinus symptoms, problematic allergy problems. EYES: No diplopia or blurry vision. CARDIOVASCULAR: No chest pain, dyspnea, palpitations, orthopnea, PND, ankle edema. PULM: No dyspnea, unexplained cough. GI: No dysphagia/odynophagia, problematic reflux, constipation, diarrhea, changes in stool habits, hematochezia, melena. : No new urinary complaints, including dysuria, gross hematuria or pyuria. NEURO: No new balance problems, peripheral weakness/paresthesias or numbness of concern. MUSC-SKEL: No new joint pain, swelling, or erythema. PSY: No concerns regarding depression, anxiety or panic. INTEGUMENTARY: No new skin changes (rash, new or changing mole, new growth) PHYSICAL EXAMINATION: 77-year-old, well-nourished, well-developed but frail gentleman appeared to be distress BP 140/73 Pulse 102 Temp (Src) 98.6 (Temporal Artery) Ht 5' 5.748 (1.67m) Wt 205 lb 8 oz (93.2kg) BMI 33.42 kg/(m2). oxygen saturation 96% on room air. HEENT: Head is normocephalic, atraumatic. Sclerae white, conjunctivae pink. PEERL. EOMs are intact. Oropharynx is benign. LYMPHATICS: There is no palpable adenopathy in the neck, supraclavicular region, axillae, or groin. LUNGS: Lungs are clear to percussion and auscultation. HEART: Heart is normal without murmurs, gallops, or rubs. ABDOMEN: Soft and nontender without organomegaly. No masses can be palpated. EXTREMITIES: Are without edema.+ ecchymosis on forearm, no petechiae Left leg wound is healing with no drainage, dressing dry. NEUROLOGIC: Exam is physiologic LABORATORY DATA: Component Latest Ref Rng AND Units 07/21/2017 WBC 3.70 - 11.00 k/uL 6.26 RBC 4.20 - 6.00 m/uL 4.37 Hemoglobin 13.0 - 17.0 g/dL 12.3 (L) Hematocrit 39.0 - 51.0 % 39.3 MCV 80.0 - 100.0 fL 89.9 MCH 26.0 - 34.0 pG 28.1 MCHC 30.5 - 36.0 g/dL 31.3 RDW-CV 11.5 - 15.0 % 15.4 (H) Platelet Count 150 - 400 k/uL 187 MPV 9.0 - 12.7 fL 11.7 Neut% % 72.3 Abs Neut (ANC) 1.45 - 7.50 k/uL 4.53 Lymph% % 15.5 Abs Lymph 1.00 - 4.00 k/uL 0.97 (L) Teller% % 10.9 Abs Teller <0.87 k/uL 0.68 Eosin% % 1.1 Abs Eosin <0.46 k/uL 0.07 Baso% % 0.2 Abs Baso <0.11 k/uL <0.03 Nucleated Reds 0 /100 WBC 0.0 Absolute nRBC <0.01 k/uL <0.01 Diff Type Auto Diff Protein, Total 6.3 - 8.0 g/dL 7.6 Albumin 3.9 - 4.9 g/dL 4.0 Calcium 8.5 - 10.2 mg/dL 9.8 Bilirubin, Total 0.2 - 1.3 mg/dL 0.6 Alkaline Phosphatase 36 - 108 U/L 68 AST 14 - 40 U/L 31 Glucose 74 - 99 mg/dL 96 BUN 9 - 24 mg/dL 24 Creatinine 0.73 - 1.22 mg/dL 1.18 Sodium 136 - 144 mmol/L 134 (L) Potassium 3.7 - 5.1 mmol/L 5.2 (H) Chloride 97 - 105 mmol/L 101 CO2 22 - 30 mmol/L 19 (L) Anion Gap 9 - 18 mmol/L 14 ALT 10 - 54 U/L 28 eGFR- >60 eGFR-All Other Races . 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 Clinically, his pulmonary embolism has resolved and no evidence of DVTs on venous doppler study. PLAN: - At this time, the patient risks for bleeding and fall is much higher than risk of recurrent thromboembolism. Therefore, I do not recommend long-term anticoagulation treatment. - There is no evidence of underlying malignancy and patient is up-to-date with his colonoscopy screening. - He will need to follow-up with Dr. Chet Jones this year for screening colonoscopy. - Repeat anticardiolipin antibodies next months. If the results of his IgM anti-cardiolipin antibody is still equivocal, then he does not have an acquired hypercoagulable state, and there is no reasons for long-term anticoagulation therapy. - Follow-up with pulmonary medicine. I spent 45 minutes in the visit, with more than 50% of the total [id number] time of the visit in counseling / coordination of care. The patient and family were allowed enough time to ask questions. All questions were answered to their satisfaction. Patient and family verbalized understanding of treatment plan and agreed to follow-up with PCP Daniel Montalvo MD. ELECTRONICALLY SIGNED Cc: Dr. Lambert Jones CNOVSP Observed: 11/05/2017 Status: COMPLETED Source: [place] 9:10 AM [facility] REPOSITORY Visit (SP) Office ([place]) CARISSA YIP ([id number]) 1940 M Date Time Provider Department 11/05/17 9:10 AM DANIEL MONTALVO During your visit today, we recorded the following information about you: Temperature Pulse Blood pressure Weight 98.6 degrees 102/minute 140/73 93.2 kg Height 1.67 m Claudette Pak LPN 11/05/2017 9:23 AM Signed New patient. Discuss diagnosis of PE. Claudette Montalvo MD 11/05/2017 9:29 AM Signed No more anticoagulation treatment is needed at this time. Repeat labs in 1 month and follow up with pulmonary medicine. See Dr. Chet Jones for follow up colonoscopy later this year. Daniel Montalvo MD 11/06/2017 7:35 AM Signed Hematology and Medical Oncology PATIENT NAME: Carissa Yip. CLINIC NO: [id number]. ATTENDING PHYSICIAN: Daniel Montalvo MD. DATE OF SERVICE:11/05/2017. DIAGNOSIS: history acute pulmonary embolism; and asthma AND pulmonary hypertension Consultation requested by IAN Villalta for an opinion regarding anticoagulation therapy. My final recommendations will be communicated back to the requesting physician by way of shared Medical record or letter to requesting physician via [place] mail. PERFORMANCE STATUS:80% HPI: this is 77-year-old elderly gentleman with history of pulmonary embolism diagnosed last year and has been placed on Xarelto since January 2017. Hypercoagulable panel performed this year showed a carrier for the prothrombin gene [id number] mutation. He had 2 equivocal anticardiolipin antibody results. He has been doing well since he was treated for his pulmonary embolism. Patient has no chest pain, shortness of breath. He can walk a reasonable distant before eating short of breath. Patient has fallen a couple months ago and he is treated for cellulitis and infection of his wound currently. He may also need a skin graft in the near future for wound closure. During his treatment he has no major bleeding complication until his accident. He also has macular degeneration and problems with his eyesight. Patient has EGD AND colonoscopy evaluation for anemia in [address] Chet Jones. He had several and no breast polyp removed from his colon, but his EGD was normal. He does not smoke, or drink alcohol. no family history of thromboembolism. Patient denied weight loss, change in bowel habit, he has skin cancer. He also had a venous doppler study and perfusion lung scan recently both were negative for thromboembolism. He stopped Xarelto last month and patient has no complaints. MEDICATIONS: Current Outpatient Prescriptions: fluticasone (FLONASE) 50 mcg/actuation nasal spray instill 2 sprays into each nostril twice a day sertraline (ZOLOFT) 100 mg tablet Take 1.5 tablets by mouth once daily. montelukast (SINGULAIR) 10 mg tablet Take 1 tablet by mouth daily at bedtime. nitroglycerin sublingual (NITROQUICK) 0.4 mg SL tablet Dissolve 1 tablet under the tongue every 5 minutes as needed for Chest Pain. guaiFENesin (MUCINEX) 600 mg 12 hr tablet Take 1 tablet by mouth twice daily. ADVAIR HFA 230-21 mcg/actuation inhaler take 2 inhalations by mouth twice a day Rinse mouth after use omeprazole (PRILOSEC) 20 mg capsule Take 1 capsule by mouth daily before breakfast. 1/2 hr before meal. lisinopril (ZESTRIL, PRINIVIL) 20 mg tablet Take 1 tablet by mouth once daily. atorvastatin (LIPITOR) 10 mg tablet take 1 tablet by mouth at bedtime leflunomide (ARAVA) 10 mg tablet Take 10 mg by mouth once daily. VENTOLIN HFA 90 mcg/actuation inhaler inhale 2 puffs every 4 hours if needed SPIRIVA WITH HANDIHALER 18 mcg inhalation capsule inhale the contents of one capsule in the handihaler once daily nystatin-triamcinolone (MYCOLOG II) cream Apply 1 application to affected area twice daily as needed. Genital rash. azelastine (ASTELIN,ASTEPRO) 0.1% nasal spray instill 2 sprays into each nostril twice a day ipratropium-albuterol (DUONEB) 0.5 mg-3 mg(2.5 mg base)/3 mL nebu Inhale 3 mL as instructed four times daily as needed. by nebulizer over 5 to 15 minutes. EPINEPHrine (EPIPEN) 0.3 mg/0.3 mL auto-injector Inject 0.3 mL intramuscularly as needed. polyethylene glycol 3350 (MIRALAX, GLYCOLAX) 17 gram/dose powder Take 17 g by mouth once daily. Take one (1) capful in 8oz of liquid each day. ferrous sulfate 325 mg (65 mg iron) tablet Take one(1) tablet two(2) times daily. (Patient taking differently: Take 325 mg by mouth once daily. Take one(1) tablet two(2) times daily. ) ipratropium (ATROVENT) 0.02 % nebulizer solution 500 mcg (one ampule) nebulized four times a day as needed. Vitamin A-Vit C-Vit E-Zinc-Cu (OCUVITE PRESERVISION) ORAL Tab Take one(1) tablet two(2) times daily. furosemide (LASIX) 40 mg tablet Take 1 tablet by mouth once daily for 7 days. (Patient not taking: Reported on 11/05/2017 ) COMPOUNDED PRESCRIPTION Polypodium Leucotomos extract (Daily Defense). Take 2 capsules once a day. 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 albuterol HFA (PROVENTIL HFA) 90 mcg/actuation inhaler Inhale 2 Puffs as instructed. No current facility-administered medications for this visit. . ALLERGIES: ALLERGIES Allergen Reactions - Indocin [Indomethac* Other: See Comments Wheezing, can take naprosyn - Percocet [Oxycodone* Itching - Seasonal Allergies Other: See Comments Cat, Goats, Dust mites, molds, trees, grasses, weed, ragweed . PAST MEDICAL HISTORY: PAST MEDICAL HISTORY Diagnosis Date - Anxiety state, unspecified - Benign neoplasm of colon - Chronic rhinitis - Colon polyp 10/2014 - Depressive disorder, not elsewhere classified - Diabetes mellitus type 2, controlled, without complications ([facility]) 08/25/2017 - Diverticulosis of colon (without mention of hemorrhage) - Esophageal reflux - Family history of malignant neoplasm of gastrointestinal tract - GENERAL OSTEOARTHROSIS 04/08/2008 - Gout 04/01/2011 - HYPERGLYCEMIA 07/19/2005 - HYPERLIPIDEMIA NEC/NOS 07/19/2005 - HYPERTENSION NOS 09/03/2007 - Hypertrophy of prostate without urinary obstruction and other lower urinary tract symptoms (LUTS) - Impaired fasting blood sugar 07/19/2005 - Internal hemorrhoids without mention of complication - IRON DEFIC ANEMIA NEC 07/19/2005 - Macular degeneration (senile) of retina, unspecified - MALIGN NEOPL PROSTATE 05/23/2005 - Other pulmonary embolism without acute cor pulmonale (HCC) 01/27/2017 - Personal history of colonic polyps - Pulmonary embolism (HCC) - Pulmonary hypertension 01/30/2017 - PULMONARY NODULES 06/03/2006 - Rosacea 02/25/2007 - Skin cancer of face [facility]. - Unspecified asthma(493.90) . PAST SURGICAL HISTORY: PAST SURGICAL HISTORY Procedure Laterality Date - APPENDECTOMY 11-02-14 - COLONOS W/REM POLYP SNARE 07/25/05 - COLONOS W/REM POLYP SNARE 01/17/11 - COLONOSCOP W/ OR W/O [facility] SPEC 07/28/14 Colonoscopy - COLONOSCOP W/ OR W/O [facility] SPEC 12-20-15 - COLONOSCOPY - DIAGNOSTIC 03/02/2003 - DEBRIDEMENT WOUND 21+ SQ CM Left 09/12/2017 Left leg abcess s/pt traumatic wound. - EGD W/O OR W/BRUSH/WASH 04/17/15 EGD - KNEE SCOPE,DIAGNOSTIC 1998 LEFT - LAP COLECTMY W/ILEUM/ILEOCOL 11-02-14 WITH INCISIONAL HERNIA REPAIR - LAPAROSCOPIC HEMICOLECTOMY 11-02-14 - REMV PROSTATE,PERINEAL,RADICAL 11/28/2003 - REPAIR ROTATOR CUFF,ACUTE 03/04/2002 Rotator cuff repair Left - REPAIR UMBILICAL BAKARI,5+Y/O,REDUC 03/01/1996 Hernia repair, umbilical >5yr - REVISE MEDIAN N/CARPAL TUNNEL SURG Bilateral 1994 Carpal tunnel decomp; , - TOTAL HIP REPLACEMENT 07/26/2013 Hip replacement, total, LEFT, Dr. Rojas - TOTAL KNEE REPLACEMENT 06/2008 left knee . FAMILY HISTORY: FAMILY HISTORY Problem Relation Age of Onset - Diabetes Father - Colon Cancer Father - Asthma Mother - Colon Cancer Sister - Diabetes Sister - Colon Cancer Other . 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 Social History Main Topics Smoking status: Never Smoker Smokeless tobacco: Never Used Comment: Father smoked in childhood home. No household smoke exposure since. 05/2014. Alcohol use: No Drug use: No Social History Narrative 2017: Lives with spouse w/ depression. No longer driving since 2013 due to macular degeneration. drives. Ambulatory with cane. Dyspnea on moderate exertion. .REVIEW OF SYSTEMS: CONSTITUTIONAL: No fevers, chills, nightsweats, unintended weight loss HEENT: Denies frequent or severe heaches, nasal congestion/sinus symptoms, problematic allergy problems. EYES: No diplopia or blurry vision. CARDIOVASCULAR: No chest pain, dyspnea, palpitations, orthopnea, PND, ankle edema. PULM: No dyspnea, unexplained cough. GI: No dysphagia/odynophagia, problematic reflux, constipation, diarrhea, changes in stool habits, hematochezia, melena. : No new urinary complaints, including dysuria, gross hematuria or pyuria. NEURO: No new balance problems, peripheral weakness/paresthesias or numbness of concern. MUSC-SKEL: No new joint pain, swelling, or erythema. PSY: No concerns regarding depression, anxiety or panic. INTEGUMENTARY: No new skin changes (rash, new or changing mole, new growth) PHYSICAL EXAMINATION: 77-year-old, well-nourished, well-developed but frail gentleman appeared to be distress BP 140/73 Pulse 102 Temp (Src) 98.6 (Temporal Artery) Ht 5' 5.748 (1.67m) Wt 205 lb 8 oz (93.2kg) BMI 33.42 kg/(m2). oxygen saturation 96% on room air. HEENT: Head is normocephalic, atraumatic. Sclerae white, conjunctivae pink. PEERL. EOMs are intact. Oropharynx is benign. LYMPHATICS: There is no palpable adenopathy in the neck, supraclavicular region, axillae, or groin. LUNGS: Lungs are clear to percussion and auscultation. HEART: Heart is normal without murmurs, gallops, or rubs. ABDOMEN: Soft and nontender without organomegaly. No masses can be palpated. EXTREMITIES: Are without edema.+ ecchymosis on forearm, no petechiae Left leg wound is healing with no drainage, dressing dry. NEUROLOGIC: Exam is physiologic LABORATORY DATA: Component Latest Ref Rng AND Units 07/21/2017 WBC 3.70 - 11.00 k/uL 6.26 RBC 4.20 - 6.00 m/uL 4.37 Hemoglobin 13.0 - 17.0 g/dL 12.3 (L) Hematocrit 39.0 - 51.0 % 39.3 MCV 80.0 - 100.0 fL 89.9 MCH 26.0 - 34.0 pG 28.1 MCHC 30.5 - 36.0 g/dL 31.3 RDW-CV 11.5 - 15.0 % 15.4 (H) Platelet Count 150 - 400 k/uL 187 MPV 9.0 - 12.7 fL 11.7 Neut% % 72.3 Abs Neut (ANC) 1.45 - 7.50 k/uL 4.53 Lymph% % 15.5 Abs Lymph 1.00 - 4.00 k/uL 0.97 (L) Teller% % 10.9 Abs Teller <0.87 k/uL 0.68 Eosin% % 1.1 Abs Eosin <0.46 k/uL 0.07 Baso% % 0.2 Abs Baso <0.11 k/uL <0.03 Nucleated Reds 0 /100 WBC 0.0 Absolute nRBC <0.01 k/uL <0.01 Diff Type Auto Diff Protein, Total 6.3 - 8.0 g/dL 7.6 Albumin 3.9 - 4.9 g/dL 4.0 Calcium 8.5 - 10.2 mg/dL 9.8 Bilirubin, Total 0.2 - 1.3 mg/dL 0.6 Alkaline Phosphatase 36 - 108 U/L 68 AST 14 - 40 U/L 31 Glucose 74 - 99 mg/dL 96 BUN 9 - 24 mg/dL 24 Creatinine 0.73 - 1.22 mg/dL 1.18 Sodium 136 - 144 mmol/L 134 (L) Potassium 3.7 - 5.1 mmol/L 5.2 (H) Chloride 97 - 105 mmol/L 101 CO2 22 - 30 mmol/L 19 (L) Anion Gap 9 - 18 mmol/L 14 ALT 10 - 54 U/L 28 eGFR- >60 eGFR-All Other Races . 60 TSH 0.400 - 5.500 uU/mL 5.650 (H) Component Latest Ref Rng AND Units 10/29/2017 Cardiolipin Ab, IgG 0 - 9 GPL <9 Cardiolipin Ab, IgM 0 - 11 MPL 29 (H) Cardiolipin Ab, IgA 0 - 11 APL <9 ASSESSMENT: 77-year-old gentleman with anemia chronic disease, history of acute pulmonary embolism AND Heterozygous prothrombin gene [id number] mutation. Clinically, his pulmonary embolism has resolved and no evidence of DVTs on venous doppler study. PLAN: - At this time, the patient risks for bleeding and fall is much higher than risk of recurrent thromboembolism. Therefore, I do not recommend long-term anticoagulation treatment. - There is no evidence of underlying malignancy and patient is up-to-date with his colonoscopy screening. - He will need to follow-up with Dr. Chet Jones this year for screening colonoscopy. - Repeat anticardiolipin antibodies next months. If the results of his IgM anti-cardiolipin antibody is still equivocal, then he does not have an acquired hypercoagulable state, and there is no reasons for long-term anticoagulation therapy. - Follow-up with pulmonary medicine. I spent 45 minutes in the visit, with more than 50% of the total [id number] time of the visit in counseling / coordination of care. The patient and family were allowed enough time to ask questions. All questions were answered to their satisfaction. Patient and family verbalized understanding of treatment plan and agreed to follow-up with PCP Daniel Montalvo MD. ELECTRONICALLY SIGNED Cc: Dr. Lambert Jones Referring Provider: LENI MCBRIDE [[id number]] Allergies As of Date: 11/05/2017 Noted Allergy Reaction INDOCIN (INDOMETHACIN SODIUM) 04/01/2011 14 - Other: See Comments Comments: Wheezing, can take naprosyn PERCOCET (OXYCODONE-ACETAMINOPHEN)01/08/2005 9 - Itching SEASONAL ALLERGIES 11/12/2012 14 - Other: See Comments Comments: Cat, Goats, Dust mites, molds, trees, grasses, weed, ragweed Date Reviewed: 11/05/2017 Reviewed by: Claudette Pak LPN - Fully Assessed Reason for Visit: Consult [173] Reason For Visit History Recorded Primary Visit Diagnosis:Benign neoplasm of sigmoid colon [D12.5] Other Visit Diagnoses:Other acute pulmonary embolism without acute cor pulmonale (HCC) [I26.99] Prothrombin [id number] mutation (HCC) [D68.52] Order(s):ANTI-CARDIOLIPIN AB [SQCARDIO] Order #: [id number] FUTURE Level of Service: NEW PATIENT VISIT LEVEL 4 [26239] Disposition: Return if symptoms worsen or fail to improve. Follow-up and Disposition History Recorded Prescriptions as of 11/05/2017 Sig: FLUTICASONE 50 MCG/ACTUATION * instill 2 sprays into each no* SERTRALINE 100 MG TABLET Take 1.5 tablets by mouth onc* MONTELUKAST 10 MG TABLET Take 1 tablet by mouth daily * NITROGLYCERIN 0.4 MG SUBLINGU* Dissolve 1 tablet under the t* GUAIFENESIN ER 600 MG TABLET,* Take 1 tablet by mouth twice * ADVAIR HFA 230 MCG-21 MCG/ACT* take 2 inhalations by mouth t* OMEPRAZOLE 20 MG CAPSULE,ALEX* Take 1 capsule by mouth daily* LISINOPRIL 20 MG TABLET Take 1 tablet by mouth once d* ATORVASTATIN 10 MG TABLET take 1 tablet by mouth at bed* LEFLUNOMIDE 10 MG TABLET Take 10 mg by mouth once christiano* VENTOLIN HFA 90 MCG/ACTUATION* inhale 2 puffs every 4 hours * SPIRIVA WITH HANDIHALER 18 MC* inhale the contents of one ca* NYSTATIN-TRIAMCINOLONE 100,00* Apply 1 application to affect* AZELASTINE 137 MCG (0.1 %) NA* instill 2 sprays into each no* IPRATROPIUM-ALBUTEROL 0.5 MG-* Inhale 3 mL as instructed fou* EPINEPHRINE 0.3 MG/0.3 ML INJ* Inject 0.3 mL intramuscularly* POLYETHYLENE GLYCOL 3350 17 G* Take 17 g by mouth once daily* FERROUS SULFATE 325 MG (65 MG* Take one(1) tablet two(2) link* Patient taking differently: Take 325 mg by mouth once winnie* IPRATROPIUM BROMIDE 0.02 % SO* 500 mcg (one ampule) nebulize* PRESERVISION AREDS 7,160 UNIT* Take one(1) tablet two(2) link* FUROSEMIDE 40 MG TABLET Take 1 tablet by mouth once d* Patient not taking: Reported on 11/05/2017 COMPOUNDED PRESCRIPTION Polypodium Leucotomos extract* ALBUTEROL SULFATE HFA 90 MCG/* Inhale 2 Puffs as instructed. Medication notes this encounter FERROUS SULFATE 325 MG (65 MG IRON) TABLET >> Claudette Pak LPN 11/05/2017 9:01 AM >> CLAUDETTE PAK LPN FriNov 05, 2017 9:01 AM Taking 1 tab twice a day Problem List As Of Date 11/05/2017 Noted Resolved Asthma [J45.909] 08/25/2017 CHRONIC RHINITIS [J31.0] BPH without obstruction/lower urinary tract sym* ANXIETY STATE NOS [F41.1] 08/05/2014 Depression with anxiety [F41.8] Diverticulosis of colon (without mention of hem* 10/06/2012 ESOPHAGEAL REFLUX [K21.9] Internal hemorrhoids without mention of complic* 08/30/2010 Malignant neoplasm of prostate (HCC) [C61] INVALID FOR*08/05/2014 MACULAR DEGENERATION NOS [H35.30] Other specified iron deficiency anemias [D50.8] INVALID FOR*08/30/2010 Diabetes mellitus type 2, controlled, without c*INVALID FOR* Hyperlipidemia [E78.5] INVALID FOR* Personal history of colonic polyps [Z86.010] INVALID FOR*09/30/2011 More... FAMILY HX COLON CANCER [Z80.0] INVALID FOR*08/25/2017 PULMONARY NODULES [J98.4] INVALID FOR*10/06/2012 More... 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] INVALID FOR* Essential hypertension [I10] INVALID FOR* Generalized osteoarthritis of multiple sites [M*INVALID FOR* Benign neoplasm of rectum and anal canal [D12.8*INVALID FOR*10/06/2012 Benign neoplasm of colon [D12.6] INVALID FOR* Gout [M10.9] INVALID FOR* Venous insufficiency of leg [I87.2] INVALID FOR* Iron deficiency anemia due to chronic blood los*INVALID FOR* Inflammatory polyarthropathy of multiple sites *INVALID FOR* Unsteady gait [R26.81] INVALID FOR* Uncomplicated severe persistent asthma [J45.50] INVALID FOR* Other pulmonary embolism without acute cor pulm*INVALID FOR* Pulmonary hypertension (HCC) [I27.20] INVALID FOR* Memory disturbance [R41.3] INVALID FOR* Obesity, Class I, BMI 30-34.9 E66.9 [E66.9] INVALID FOR* Open wound of left lower extremity [S81.802A] INVALID FOR* Prothrombin C65856L mutation (HCC) [D68.52] INVALID FOR* Other instructions from your clinician: No more anticoagulation treatment is needed at this time. Repeat labs in 1 month and follow up with pulmonary medicine. See Dr. Chet Jones for follow up colonoscopy later this year. Visit Notes: >> Claudette Pak LPN FriNov 05, 2017 9:05 AM Status: Signed New patient. Discuss diagnosis of PE. Claudette Pak LPN Encounter Status:Closed by DANIEL MONTALVO MD on 11/06/17 WOUND CTR HISTORY Observed: 11/04/2017 Status: F Source: [facility] 11:38 AM [facility] [place] REPOSITORY [facility] [address] [place] [id number] Wound Ctr History AND Physical 11/04/17 1126 MR#: [id number] Acct: [id number] Name: CARISSA YIP Rep #: [id number] : [id number] 77 From: Oz Cooper MD PCP: Lambert Larios MD Status: REG RCR Y Location: WC (1) Traumatic wound Status: Acute Current Visit: Yes (2) Open wound of left lower extremity Status: Acute Current Visit: Yes Qualifiers: Encounter type: subsequent encounter Qualified Code(s): S81.802D - Unspecified open wound, left lower leg, subsequent encounter Code(s): S81.802A - Unspecified open wound, left lower leg, initial encounter (3) Leg swelling Status: Acute Current Visit: Yes Code(s): M79.89 - Other specified soft tissue disorders (4) History of pulmonary embolism Status: Chronic Current Visit: No Code(s): Z86.711 - Personal history of pulmonary embolism (5) HLD (hyperlipidemia) Status: Chronic Current Visit: No Code(s): E78.5 - Hyperlipidemia, unspecified (6) Asthma Status: Chronic Current Visit: No Code(s): J45.909 - Unspecified asthma, uncomplicated (7) Hypertension Status: Chronic Current Visit: No Qualifiers: Code(s): I10 - Essential (primary) hypertension (8) Traumatic open wound of left lower leg Status: Acute Current Visit: Yes Qualifiers: Encounter type: subsequent encounter Code(s): S81.802A - Unspecified open wound, left lower leg, initial encounter (9) Open wound of left lower leg Status: Acute Current Visit: Yes Qualifiers: Encounter type: subsequent encounter Code(s): S81.802A - Unspecified open wound, left lower leg, initial encounter (10) Open wound Status: Acute Current Visit: Yes Code(s): T14.8 - Other injury of unspecified body region (11) Obesity Status: Chronic Current Visit: No Code(s): E66.9 - Obesity, unspecified (12) Osteoarthritis Status: Chronic Current Visit: No (13) History of prostate cancer Status: Chronic Current Visit: No Code(s): Z85.46 - Personal history of malignant neoplasm of prostate (14) Macular degeneration Status: Chronic Current Visit: No Code(s): H35.30 - Unspecified macular degeneration (15) GERD (gastroesophageal reflux disease) Status: Chronic Current Visit: No Code(s): K21.9 - Gastro- esophageal reflux disease without esophagitis (16) Prostate ca Status: Chronic Current Visit: No Code(s): C61 - Malignant neoplasm of prostate History of Present Illness Date of Service: 11/04/17 Chief Complaint: Recent traumatic injury of the left lower extremity with residual open wound History of Wound: This is a 77-year-old male who was in his normal state of health until September 06, 2017, at which time he sustained an injury to the left lateral calf, the result of a shovel which impaled into his left leg. The patient was rushed to the emergency department on that date, where he was treated by means of wound closure using sutures. Four days later, he had developed a cellulitis, and was admitted to the hospital for treatment. Patient was treated with antibiotics, and subsequently underwent wide surgical debridement of necrotic tissue by Dr. Homero Chin on September 12, 2017. Patient was discharged on September 16, 2017. He was discharged on Cipro 500 mg p.o. twice daily and Augmentin 875 mg p.o. twice daily. At the time of discharge, arrangements were made for the wound VAC to be the means of treatment, which has been changed every several days by home health nursing personnel. The patient had been on Xarelto and treatment for a pulmonary embolism which was diagnosed in January 2017. As result of his injury, the Xarelto has been discontinued. A noninvasive lower extremity arterial study performed in August 2016 revealed no evidence of arterial occlusive disease in the lower extremities. Therefore, there is no reason to believe there is since of any significant arterial occlusive disease. Review of the patient's recent laboratory studies, while hospitalized, revealed the following: White blood count 5.9, hemoglobin 9.3, hematocrit 29.1, platelets 311,000, sodium 137, potassium 4.4, chloride 105, BUN 12, creatinine 1.04, glucose 117, albumin 2.7, total protein 6.8, calcium 8.8, hemoglobin A1c 7.7, magnesium 2.0, total bilirubin 0.30. Patient has done well, showing progress with the use of the wound VAC. Past Medical History Past Medical History: Chronic Problems History of pulmonary embolism (Chronic) Iron deficiency anemia (Chronic) Pulmonary nodule (Chronic) HLD (hyperlipidemia) (Chronic) Diverticulosis (Chronic) Asthma (Chronic) Hypertension (Chronic) Avulsion of skin (Chronic) Avulsion of skin of hand (Chronic) Obesity (Chronic) Osteoarthritis (Chronic) Penetrating injury right leg (Chronic) Pain in right leg (Chronic) Right leg swelling (Chronic) History of prostate cancer (Chronic) Allergic rhinitis (Chronic) Rheumatoid arthritis (Chronic) Pleural plaque (Chronic) Macular degeneration (Chronic) GERD (gastroesophageal reflux disease) (Chronic) Prostate ca (Chronic) Surgical History: - - Umbilical hernia repair, appendectomy, bilateral carpal tunnel surgery, Prostatectomy, Cataract surgery, L lens implant, L knee surgery followed by LTKR, L shoulder surgery, left total hip replacement. Allergies/Adverse Reactions: Allergies indomethacin [From Indocin] Allergy (Verified 09/09/17 22:56) Itching indomethacin sodium [From Indocin] Allergy (Verified 09/09/17 22:56) Itching oxycodone HCl [From Percocet] Allergy (Verified 09/09/17 22:56) Itching Home Medications: Ambulatory Orders Medication Instructions Recorded - Family History Sibling Diabetes, Renal Disease, - - Patient's father at the age of 76 with history of colon cancer myocardial infarction. Patient's mother at age of 86 with a history of breast cancer. Maternal Cancer Paternal Cancer Smoking Status: Never smoker Tobacco Use: Non-smoker Review of Systems Constitutional: Denies: Chills, Fever, Weight Change Eyes: Denies: Pain, Vision Change HEENT: Denies: Difficulty Hearing, Difficulty Swallowing, Sinus Congestion Cardiovascular: Denies: Chest Pain, Palpitations Respiratory: Denies: Cough, Shortness of Breath Gastrointestinal: Denies: Diarrhea, Nausea, Vomiting Genitourinary: Denies: Dysuria, Hematuria Endocrine: Denies: Heat/ Cold Intolerance, Polydipsia, Polyuria Hematologic/ Lymphatic: Denies: Easy Bruising, Easy Bleeding - Physical Exam Vital Signs Temp Pulse Resp BP 97.8 F 87 18 145/74 H 11/04/17 10:39 11/04/17 10:39 11/04/17 10:39 11/04/17 10:39 General: Alert, Oriented x3, Cooperative, No apparent distress, Well developed, Well nourished HEENT: Atraumatic, PERRLA, EOMI, Normocephalic, - - The patient has a bandage on his left congregational from recent Mohs surgery. Oral: Moist Mucosa Neck: No JVD Lungs: Normal air movement Abdomen: Non-Distended Extremities: No clubbing, No cyanosis, No Calf Tenderness, - - Mild swelling and edema is noted in the distal left lower extremity. The traumatic wound on the left lateral calf is pink and healthy in appearance, with active granulation tissue. There is evidence of peripheral epithelialization. The base of the wound is pink and healthy, without evidence of infection or cellulitis. Wound dimensions are documented elsewhere. There appears to be no significant bioburden or nonviable tissue. Skin: No rashes Wound Measurements and Assessment WC - Nurse 1 - General Ulcer Measurement Start: 10/31/17 10:07 Freq: Status: Active Protocol: Activity Type Activity Date Activity User E-Sign Co-Sign Detail Recorded Client Recorded Date Recorded By Document 11/04/17 10:39 [facility] [id number] 11/04/17 10:51 [facility] Wound Center Nurse 1 [Ulcer Assessment] #7 LATERAL LLE- POST OP 09/12/17 -Combined with other wound No Musculoskeletal: No Muscle Wasting Neurological: Cranial nerves II-XII grossly intact, Neuro grossly intact Psych/Mental Status: Normal Affect, Appropriate, Alert and oriented to time, place, person, mood and affect Debridement Note Post-Debridement Measurements/Treatment WC - Nurse 2 - General Ulcer CM Notes Start: 10/31/17 10:07 Freq: Status: Active Protocol: Activity Type Activity Date Activity User E-Sign Co-Sign Detail Recorded Client Recorded Date Recorded By Document 10/31/17 10:55 [facility] [id number] 10/31/17 10:56 [facility] Wound Center Nurse 2 #7 LATERAL LLE- POST OP 09/12/17 -Time 10:56 -Correct Patient Yes -Correct Side, Site, Position Yes No debridement was completed today Assessment/Plan Active Problems Cellulitis of left leg (Acute) Leg swelling (Acute) 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 (Acute) Anemia (Acute) Traumatic wound (Acute) Open wound of left lower extremity (Acute) Traumatic open wound of left lower leg (Acute) Open wound of left lower leg (Acute) Open wound (Acute) Avulsion of skin of right lower leg (Acute) Assessment: This is a 77-year-old male with a traumatic injury to the left lateral calf. The patient appears to be responding well to the use of the wound VAC, which will be continued. Plan: We are to continue the use of the wound VAC which will be changed several times weekly. Patient has shown significant progress. Wound VAC changes have been assisted by home health nursing personnel. Patient will return in 1 week for reassessment. Intake of a well-balanced and nutritious diet has been advised. Patient has been advised to elevate his lower extremities, to minimize swelling and edema. Continue increasing iron supplements to twice daily daily. Follow-up one week. We will seek consultation with plastic surgery, Dr. Hinds, for consideration of a split thickness skin graft. Given the large size of the patient's traumatic wound, split thickness skin grafting may offer a more expeditious approach to subsequent healing and discharge. Matters in this regard have been discussed with the patient. The patient is not a smoker. Influenza vaccine was not administered today. Patient stands 5 feet 4 inches tall. He weighs 210 pounds. His BMI is 36.0, which places him in a class II category. Weight loss has been recommended, with collaboration with his primary care physician. 11/04/17 1138 <Electronically signed by Oz Cooper MD> Date Oz Cooper MD CC: Signed CARDIOLIPIN ANTIBODY Collected: 10/29/2017 Status: F Source: [place] 10:21 AM [facility] REPOSITORY TYPE CODE TESTS RESULT OUT OF REFERENCE UNITS RANGE LAB CARDG 0-9 GPL IgG Cardiolipin Ab. <9 Result Comment: <10 GPL Negative 10-40 GPL Equivocal >40 GPL Positive The following results were obtained with the [employer] QUANTA Lite CHELA IgG III ANH. Cardiolipin IgG values obtained with the different manufacturers' assay methods may not be used interchangeably. The mag nitude of the reported IgG levels cannot be correlated to an endpoint titer. LAB CARDM 0-11 MPL IgM Cardiolipin High Ab. 29 Result Comment: <12 MPL Negative 12-40 MPL Equivocal >40 MPL Positive The following results were obtained with the [employer] QUANT[employer] Lite CHELA IgM III ANH. Cardiolipin IgM values obtained with different manufacturers' assay methods may not be used interchangeably. The magnitu de of the reported IgM levels cannot be correlated to an endpoint titer. LAB CARDA 0-11 APL IgA Cardiolipin Ab. <9 Result Comment: <12 APL Negative 12-40 APL Equivocal >40 APL Positive The following results were obtained with an [employer] QUANTA Lite CHELA IgA III ANH. Cardiolipin IgA values obtained with different manufacturers' assay methods may not be used interchangeably. The magnitud e of the reported IgA levels cannot be correlated to an endpoint titer. Performed By: #### CARDIO, FVIIIC #### [facility] [employer] [address], [place] [address] FACTOR VIII:C ASSAY Collected: 10/29/2017 Status: F Source: [place] 10:21 AM [facility] REPOSITORY TYPE CODE TESTS RESULT OUT OF REFERENCE UNITS RANGE LAB FVIIIC 50-173 % Factor 145 VIII:C Assay Performed By: #### CARDIO, FVIIIC #### [facility] [employer] [address], [place] [address] WOUND CTR HISTORY Observed: 10/10/2017 Status: F Source: [facility] AND PHYSICAL 8:25 AM [facility] REPOSITORY [facility] [address] [place] [address] Wound Ctr History AND Physical 10/06/17 1018 MR#: [id number] Acct: [id number] Name: CARISSA YIP Rep #: [id number] : [id number] From: Samina STARK PCP: Lambert Larios MD Status: REG RCR Y Location: (1) Open wound of left lower leg Status: Acute Current Visit: Yes Qualifiers: Encounter type: initial encounter Qualified Code(s): S81.802A - Unspecified open wound, left lower leg, initial encounter Code(s): S81.802A - Unspecified open wound, left lower leg, initial encounter (2) Traumatic open wound of left lower leg Status: Acute Current Visit: Yes Qualifiers: Encounter type: initial encounter Qualified Code(s): S81.802A - Unspecified open wound, left lower leg, initial encounter Code(s): S81.802A - Unspecified open wound, left lower leg, initial encounter (3) Leg swelling Status: Acute Current Visit: Yes Code(s): M79.89 - Other specified soft tissue disorders (4) Avulsion of skin of right lower leg Status: Acute Current Visit: Yes Qualifiers: Encounter type: initial encounter Qualified Code(s): S81.801A - Unspecified open wound, right lower leg, initial encounter Code(s): S81.801A - Unspecified open wound, right lower leg, initial encounter (5) Open wound Status: Acute Current Visit: Yes Code(s): T14.8 - Other injury of unspecified body region History of Present Illness Date of Service: 10/03/17 Chief Complaint: Recent traumatic injury of the left lower extremity with residual open wound History of Wound: This is a 77-year-old male who was in his normal state of health until September 06, 2017, at which time he sustained an injury to the left lateral calf, the result of a shovel which impaled into his left leg. The patient was rushed to the emergency department on that date, where he was treated by means of wound closure using sutures. Four days later, he had developed a cellulitis, and was admitted to the hospital for treatment. Patient was treated with antibiotics, and subsequently underwent wide surgical debridement of necrotic tissue by Dr. Homero Chin on September 12, 2017. Patient was discharged on September 16, 2017. He was discharged on Cipro 500 mg p.o. twice daily and Augmentin 875 mg p.o. twice daily. At the time of discharge, arrangements were made for the wound VAC to be the means of treatment, which has been changed every several days by home health nursing personnel. She presents at this time for further evaluation and management on an outpatient basis. The patient had been on Xarelto and treatment for a pulmonary embolism which was diagnosed in January 2017. As result of his injury, the Xarelto has been discontinued. A noninvasive lower extremity arterial study performed in August 2016 revealed no evidence of arterial occlusive disease in the lower extremities. Therefore, there is no reason to believe there is since of any significant arterial occlusive disease. Review of the patient's recent laboratory studies, while hospitalized, reveal the following: White blood count 5.9, hemoglobin 9.3, hematocrit 29.1, platelets 311,000, sodium 137, potassium 4.4, chloride 105, BUN 12, creatinine 1.04, glucose 117, albumin 2.7, total protein 6.8, calcium 8.8, hemoglobin A1c 7.7, magnesium 2.0, total bilirubin 0.30. Past Medical History Past Medical History: Chronic Problems History of pulmonary embolism (Chronic) Iron deficiency anemia (Chronic) Pulmonary nodule (Chronic) HLD (hyperlipidemia) (Chronic) Diverticulosis (Chronic) Asthma (Chronic) Hypertension (Chronic) Avulsion of skin (Chronic) Avulsion of skin of hand (Chronic) Obesity (Chronic) Osteoarthritis (Chronic) Penetrating injury right leg (Chronic) Pain in right leg (Chronic) Right leg swelling (Chronic) History of prostate cancer (Chronic) Allergic rhinitis (Chronic) Rheumatoid arthritis (Chronic) Pleural plaque (Chronic) Macular degeneration (Chronic) GERD (gastroesophageal reflux disease) (Chronic) Prostate ca (Chronic) Surgical History: - - Umbilical hernia repair, appendectomy, bilateral carpal tunnel surgery, Prostatectomy, Cataract surgery, L lens implant, L knee surgery followed by LTKR, L shoulder surgery, left total hip replacement. Allergies/Adverse Reactions: Allergies indomethacin [From Indocin] Allergy (Verified 09/09/17 22:56) Itching indomethacin sodium [From Indocin] Allergy (Verified 09/09/17 22:56) Itching oxycodone HCl [From Percocet] Allergy (Verified 09/09/17 22:56) Itching Home Medications: Ambulatory Orders Medication Instructions Recorded - Family History Sibling Diabetes, Renal Disease, - - Patient's father at the age of 76 with history of colon cancer myocardial infarction. Patient's mother at age of 86 with a history of breast cancer. Maternal Cancer Paternal Cancer Lives: Spouse/ Significant Other Smoking Status: Never smoker Tobacco Use: Non-smoker Alcohol: Occasional Drugs: None Review of Systems Constitutional: Denies: Chills, Fever Eyes: Denies: Blurred vision, Drainage, Pain HEENT: Denies: Difficulty Hearing, Difficulty Swallowing, Sore Throat, Visual Changes Cardiovascular: Denies: Chest Pain, Palpitations, Syncope Respiratory: Denies: Cough, Shortness of Breath Gastrointestinal: Denies: Abdominal Pain, Nausea, Vomiting Genitourinary: Denies: Dysuria, Frequency Musculoskeletal: Denies: Joint Pain, Muscle pain Skin: Reports: Wounds - L lat calf. Denies: Jaundice, Rash Neurological: Denies: Balance problems, Change in Speech, Difficulty swallowing, Focal weakness Psychiatric: Denies: Anxiety, Depression Endocrine: Denies: Change in Body Habitus Hematologic/ Lymphatic: Denies: Adenopathy - Physical Exam Vital Signs Temp Pulse Resp BP 97.4 F L 139 H 20 H 103/64 10/03/17 14:25 09/26/17 13:46 10/03/17 14:25 10/03/17 14:25 General: Oriented x3, Cooperative, Well developed HEENT: Atraumatic, PERRLA Oral: Moist Mucosa Neck: Supple, No JVD Lungs: Clear to auscultation, Normal air movement Cardiovascular: Regular rate, Regular Rhythm Abdomen: Bowel Sounds Present, Soft, Non Tender, No Hepato-splenomegaly Extremities: No clubbing, No edema, Edema Skin: No rashes, Ulcer/ Wound - L lat calf avulsion laceration Wound Measurements and Assessment WC - Nurse 1 - General Ulcer Measurement Start: 09/26/17 13:39 Freq: Status: Active Protocol: Activity Type Activity Date Activity User E-Sign Co-Sign Detail Recorded Client Recorded Date Recorded By Document 10/03/17 14:25 JODI [id number] 10/03/17 14:43 JODI Wound Center Nurse 1 [Ulcer Assessment] #7 LATERAL LLE- POST OP 09/12/17 -Combined with other wound No WC - Nurse 2 - General Ulcer CM Notes Start: 09/26/17 13:39 Freq: Status: Active Protocol: Activity Type Activity Date Activity User E-Sign Co-Sign Detail Recorded Client Recorded Date Recorded By Document 10/03/17 15:30 JODI [id number] 10/03/17 15:33 JODI Wound Center Nurse 2 [Procedure/Treatment] #7 LATERAL LLE- POST OP 09/12/17 Musculoskeletal: No Tenderness to Palpation of Joints or Extremities Lymphatic: No Cervical, Supraclavicular, or Inguinal Adenopathy Neurological: Cranial nerves II-XII grossly intact, Neuro grossly intact Psych/Mental Status: Normal Affect, Appropriate Debridement Note Post-Debridement Measurements/Treatment WC - Nurse 2 - General Ulcer CM Notes Start: 09/26/17 13:39 Freq: Status: Active Protocol: Activity Type Activity Date Activity User E-Sign Co-Sign Detail Wound Center Nurse 2 #7 LATERAL LLE- POST OP 09/12/17 -Time 14:48 15:31 -Correct Patient Yes Yes -Correct Side, Site, Position Yes Yes Wound debrided: L lat calf Type of Debridement: Excisional debridement Anesthesia Used: 5% Lidocaine Gel Depth: Down to and including healthy tissue, in the subcutaneous layer Instrument Used: 7mm curette Severity: Limited To Skin Breakdown Amount of bleeding with debridement: Mild Bleeding Controlled with: Compression and gauze Patient tolerated procedure well Assessment/Plan culture and sensitivity open ulcer with anerobes and without Active Problems Leg swelling (Acute) Traumatic open wound of left lower leg (Acute) Open wound of left lower leg (Acute) Open wound (Acute) Avulsion of skin of right lower leg (Acute) Assessment: Traumatic laceration to the L lat leg. blood thinners d/c. ulcer dehisciced. postop ulvcer after debridement Plan: Current measures are to be continued. Wound VAC will be continued, with change of the wound VAC every several days, with assistance of home health nursing personnel. Patient will return in approximately 1 week for reassessment. Intake of a well-balanced and nutritious diet has been advised. Patient has been advised to elevate his lower extremities, to minimize swelling and edema. He is to continue the antibiotics which have been previously prescribed. The patient is not a smoker. Influenza vaccine was not administered today. Patient stands 5 feet 4 inches tall. He weighs 210 pounds. His BMI is 36.0, which places him in a class II category. Weight loss has been recommended, with collaboration with his primary care physician in this regard. 10/10/17 0825 <Electronically signed by Samina STARK> Date Samina STARK CC: Signed PROGRESS Observed: 10/08/2017 Status: COMPLETED Source: [place] 10:44 AM [facility] REPOSITORY HNO ID: [id number] Author: Heather Lozano Service: (none) Author Type: (none) Type: Progress Notes Filed: 10/08/2017 10:45 AM Note Text: RADIOLOGY SERVICE PROGRESS NOTE SERVICE DATE: 10/08/2017 SERVICE TIME: 10:44 AM PATIENT IDENTITY VERIFICATION COMPLETED USING TWO (2) METHODS: Patient confirmed name and Date of verbally. PATIENT GENDER DATA: .male ALLERGIES: Reviewed and unchanged MEDICATIONS REVIEWED: Yes PATIENT RELEVANT IMPLANT DATA REVIEWED: Not Applicable CREATININE: Creatinine Date Value Ref Range Status 07/21/2017 1.18 0.73 - 1.22 mg/dL Final 02/28/2017 1.30 (H) 0.73 - 1.22 mg/dL Final 01/14/2017 1.28 (H) 0.73 - 1.22 mg/dL Final Creatinine, Whole Blood (iSTAT) Date Value Ref Range Status 08/25/2017 1.10 0.70 - 1.40 mg/dL Final eGFR-All Other Races Date Value Ref Range Status 08/25/2017 >60 . Final Comment: eGFR (Estimated GFR) Units of measure: mL/min/1.73 meters squared eGFR is derived from the reexpressed MDRD Study equation using the following parameters: serum creatinine, age, gender and race. The creatinine assay has been calibrated to be traceable to IDMS. An eGFR <60 mL/min/1.73m2 for >3 months is consistent with chronic kidney disease. Refer to KDOQI guidelines for clinical interpretation. In patients with unstable renal function, e.g. those with acute kidney injury, the eGFR may not accurately reflect actual GFR. eGFR- Date Value Ref Range Status 08/25/2017 >60 Final P.O.C.T. RESULTS: N/A October 08, [address] PERFORMED: No IV SITE: Ambulatory: AR only - direct IV injection in the Right antecubital site POST EXAM PIV STATUS: Discontinued PROCEDURE TYPE: NM INJECT: Lung Quantification Perfusion. 5.7 mCi Tc99m MAA. No other medications given.. ADMINISTRATION TIME: 09:55 PATIENT DISCHARGED TO: Ambulatory patient, left AR department area. A Diagnostic radioactive procedure has taken place, with no further precautions necessary other than routine body substance precautions. More information regarding radiation safety can be found using this link: [email or web address] SIGNATURE: Heather Lozano PATIENT NAME: Carissa Yip DATE: October 08, 2017 TIME: 10:44 AM PAGER/CONTACT #: DEMETRIS LUNG QUANT Observed: 10/08/2017 Status: F Source: SOL PERFUSION 10:15 AM [facility] REPOSITORY * * *Final Report* * * DATE OF EXAM: Oct 08 2017 10:15AM WON 0030 - DEMETRIS LUNG QUANT PERFUSION / PROCEDURE REASON: Other pulmonary embolism without acute cor pulmonale * * * * Physician Interpretation * * * * QUANTITATIVE PULMONARY PERFUSION SCAN (10/08/2017): HISTORY: History of pulmonary embolism.. TECHNIQUE: 5.7 mCi Tc-99m MAA IV. Planar images were obtained from the anterior and posterior projections, and used for quantitative pulmonary perfusion measurements. Conventional 8 view planar perfusion imaging was performed. RESULT: Conventional perfusion imaging is compared with the prior study from 01/27/2017 Improved perfusion is noted in the right upper lobe. This is significant compared with the prior study. Small subsegmental perfusion defects remain in the posterior aspect of the right upper lobe and posterior left lower lobe. Improved perfusion is noted in the left upper lobe without perfusion defect seen currently. Persistent segmental defect seen superior segment right lower lobe. The estimated contribution from total pulmonary perfusion is as follows: Right upper lung zone: 12.7%. Right middle lung zone: 23.3% Right lower lung zone: 3.5%. Total pulmonary perfusion to the right lun.5%. Left upper lung zone: 15.5%. Middle lung zone: 33.6% Left lower lung zone: 11.4%. Total pulmonary perfusion to the left lun.5%. IMPRESSION: QUANTITATIVE PULMONARY PERFUSION MEASUREMENTS, INDICATED. Improved perfusion bilaterally. Persistent small subsegmental defects noted at the left lung base posteriorly. Dramatically improved perfusion left upper lung. Improved perfusion right upper lung and right lower lung however segmental defect persists superior segment right lower lobe [employer] Prosthetics Assistant: PSCB Transcribe Date/Time: Oct 08 2017 12:34P Dictated by : WILEY BLANCAS MD This examination was interpreted and the report reviewed and electronically signed by: WILEY BLANCAS MD on Oct 08 2017 12:45PM EST [id number] Observed: 10/03/2017 Status: F Source: [place] CULTURE, DEEP WOUND 3:15 PM [facility] REPOSITORY Comments: INFECTED WOUND Gram Stain Gram Stain 3+ Red Blood Cells No organisms seen No White Blood Cells Wound Culture ORGANISM 1: Staphylococcus lugdunensis Amount Growth Rare ORGANISM 2: Enterococcus faecium Amount Growth 1+ Staphylococcus lugdunensis: REACTION Cefoxitin *NF - Clindamycin $$ <=0.25 S Inducable Clindamycin Resistan - Erythromycin $ <=0.25 S Gentamicin $ <=0.5 S Levofloxacin $ 0.25 S Oxacillin NF 2 S Tigecycline $$$$ <=0.12 S Rifampin $$ <=0.5 S Tetracycline NF <=1 S Vancomycin $ <=0.5 S (NF) indicates non-formulary drug at [facility]. Approval by Infectious Disease Specialist required before non-formulary drugs may be ordered and/or dispensed. * CLSI guidelines does not recommend testing of cephalosporins. This interpretation is deduced from Beta-lactam/penicillin results. Enterococcus faecium: REACTION Ampicillin $ <=2 S Benzylpenicillin NF 2 S Gentamicin SYN-S S Linezolid $$$$ 1 S Tigecycline $$$$ <=0.12 S Streptomycin $ SYN-S S Vancomycin $ 1 S (NF) indicates non-formulary drug at [facility]. Approval by Infectious Disease Specialist required before non-formulary drugs may be ordered and/or dispensed. * CLSI guidelines does not recommend testing of cephalosporins. This interpretation is deduced from Beta-lactam/penicillin results. Cult, Anaerobic No anaerobic bacteria isolated. Performed By: #### [id number] #### [facility] [address] [place], [address] WOUND CTR HISTORY Observed: 2017 Status: F Source: [facility] AND PHYSICAL 3:36 PM [facility] REPOSITORY [facility] W[facility]aling [facility] [address] [place] [address] Wound Ctr History AND Physical 09/26/17 1517 MR#: [id number] Acct: [id number] Name: CARISSA YIP Rep #: [id number] : [id number] 77 From: Oz Cooper MD PCP: Lambert Larios MD Status: REG RCR Y Location: WC (1) Leg swelling Status: Chronic Current Visit: Yes Code(s): M79.89 - Other specified soft tissue disorders (2) Open wound of left lower leg Status: Acute Current Visit: Yes Qualifiers: Encounter type: initial encounter Qualified Code(s): S81.802A - Unspecified open wound, left lower leg, initial encounter Code(s): S81.802A - Unspecified open wound, left lower leg, initial encounter (3) Traumatic open wound of left lower leg Status: Acute Current Visit: Yes Qualifiers: Encounter type: initial encounter Qualified Code(s): S81.802A - Unspecified open wound, left lower leg, initial encounter Code(s): S81.802A - Unspecified open wound, left lower leg, initial encounter (4) Asthma Status: Chronic Current Visit: No Code(s): J45.909 - Unspecified asthma, uncomplicated (5) Diverticulosis Status: Chronic Current Visit: No Code(s): K57.90 - Diverticulosis of intestine, part unspecified, without perforation or abscess without bleeding (6) GERD (gastroesophageal reflux disease) Status: Chronic Current Visit: No Code(s): K21.9 - Gastro- esophageal reflux disease without esophagitis (7) HLD (hyperlipidemia) Status: Chronic Current Visit: No Code(s): E78.5 - Hyperlipidemia, unspecified (8) History of prostate cancer Status: Chronic Current Visit: No Code(s): Z85.46 - Personal history of malignant neoplasm of prostate (9) Hypertension Status: Chronic Current Visit: No Qualifiers: Code(s): I10 - Essential (primary) hypertension (10) Macular degeneration Status: Chronic Current Visit: No Code(s): H35.30 - Unspecified macular degeneration (11) Obesity Status: Chronic Current Visit: No Code(s): E66.9 - Obesity, unspecified (12) Osteoarthritis Status: Chronic Current Visit: No (13) History of pulmonary embolism Status: Chronic Current Visit: No Code(s): Z86.711 - Personal history of pulmonary embolism History of Present Illness Date of Service: 09/26/17 Chief Complaint: Recent traumatic injury of the left lower extremity with residual open wound History of Wound: This is a 77-year-old male who was in his normal state of health until September 06, 2017, at which time he sustained an injury to the left lateral calf, the result of a shovel which impaled into his left leg. The patient was rushed to the emergency department on that date, where he was treated by means of wound closure using sutures. Four days later, he had developed a cellulitis, and was admitted to the hospital for treatment. Patient was treated with antibiotics, and subsequently underwent wide surgical debridement of necrotic tissue by Dr. Homero Chin on September 12, 2017. Patient was discharged on September 16, 2017. He was discharged on Cipro 500 mg p.o. twice daily and Augmentin 875 mg p.o. twice daily. At the time of discharge, arrangements were made for the wound VAC to be the means of treatment, which has been changed every several days by home health nursing personnel. She presents at this time for further evaluation and management on an outpatient basis. The patient had been on Xarelto and treatment for a pulmonary embolism which was diagnosed in January 2017. As result of his injury, the Xarelto has been discontinued. A noninvasive lower extremity arterial study performed in August 2016 revealed no evidence of arterial occlusive disease in the lower extremities. Therefore, there is no reason to believe there is since of any significant arterial occlusive disease. Review of the patient's recent laboratory studies, while hospitalized, reveal the following: White blood count 5.9, hemoglobin 9.3, hematocrit 29.1, platelets 311,000, sodium 137, potassium 4.4, chloride 105, BUN 12, creatinine 1.04, glucose 117, albumin 2.7, total protein 6.8, calcium 8.8, hemoglobin A1c 7.7, magnesium 2.0, total bilirubin 0.30. Past Medical History Past Medical History: Chronic Problems Leg swelling (Chronic) History of pulmonary embolism (Chronic) Iron deficiency anemia (Chronic) Pulmonary nodule (Chronic) HLD (hyperlipidemia) (Chronic) Diverticulosis (Chronic) Asthma (Chronic) Hypertension (Chronic) Avulsion of skin (Chronic) Avulsion of skin of hand (Chronic) Obesity (Chronic) Osteoarthritis (Chronic) Penetrating injury right leg (Chronic) Pain in right leg (Chronic) Right leg swelling (Chronic) History of prostate cancer (Chronic) Allergic rhinitis (Chronic) Rheumatoid arthritis (Chronic) Pleural plaque (Chronic) Macular degeneration (Chronic) GERD (gastroesophageal reflux disease) (Chronic) Prostate ca (Chronic) Past Medical History: Patient has a history of borderline diabetes mellitus, asthma, hypertension, gastroesophageal reflux disease, and prostate cancer. His history is negative for cerebrovascular accident, myocardial infarction, congestive heart failure, and renal disease. He also has a history of lipidemia, diverticulosis, and macular degeneration. The patient was diagnosed with a pulmonary embolism in January 2017. Surgical History: - - Umbilical hernia repair, appendectomy, bilateral carpal tunnel surgery, Prostatectomy, Cataract surgery, L lens implant, L knee surgery followed by LTKR, L shoulder surgery, left total hip replacement. Allergies/Adverse Reactions: Allergies indomethacin [From Indocin] Allergy (Verified 09/09/17 22:56) Itching indomethacin sodium [From Indocin] Allergy (Verified 09/09/17 22:56) Itching oxycodone HCl [From Percocet] Allergy (Verified 09/09/17 22:56) Itching Home Medications: Ambulatory Orders Medication Instructions Recorded - Family History Sibling Diabetes, Renal Disease, - - Patient's father at the age of 76 with history of colon cancer myocardial infarction. Patient's mother at age of 86 with a history of breast cancer. Maternal Cancer Paternal Cancer Lives: Spouse/ Significant Other Smoking Status: Never smoker Tobacco Use: Non-smoker Alcohol: Occasional Drugs: None Review of Systems Constitutional: Denies: Chills, Fever, Weight Change Eyes: Denies: Pain, Vision Change HEENT: Denies: Difficulty Hearing, Difficulty Swallowing, Sinus Congestion Cardiovascular: Denies: Chest Pain, Palpitations Respiratory: Denies: Cough, Shortness of Breath Gastrointestinal: Denies: Diarrhea, Nausea, Vomiting Genitourinary: Denies: Dysuria, Hematuria Endocrine: Denies: Heat/ Cold Intolerance, Polydipsia, Polyuria Hematologic/ Lymphatic: Denies: Easy Bruising, Easy Bleeding - Physical Exam Vital Signs Temp Pulse Resp BP 97.6 F L 139 H 18 139/77 H 09/26/17 13:46 09/26/17 13:46 09/26/17 13:46 09/26/17 13:46 General: Alert, Oriented x3, Cooperative, No apparent distress, Well developed, Well nourished HEENT: Atraumatic, PERRLA, EOMI, Normocephalic Oral: Moist Mucosa Neck: Supple, No JVD, Negative Carotid Bruits, Negative Hepatojugular Reflux, No Nodes, No Nuchal Rigidity, Trachea Midline Lungs: Clear to auscultation, Normal air movement, No rhonchi, No wheeze, No rales Cardiovascular: Regular rate, Regular Rhythm, Normal S1, Normal S2, No murmurs Abdomen: Soft, Non Tender, Non-Distended, Obese, - - Rectus diastasis is noted Extremities: No clubbing, No cyanosis, No Calf Tenderness, - - Slight bilateral lower extremity edema is noted. A large traumatic wound is noted on the left lateral calf. Dimensions are documented elsewhere. There is no sign of infection or cellulitis. The wound is generally healthy in appearance. Skin: No rashes Wound Measurements and Assessment WC - Nurse 1 - General Ulcer Measurement Start: 09/26/17 13:39 Freq: Status: Active Protocol: Activity Type Activity Date Activity User E-Sign Co-Sign Detail Recorded Client Recorded Date Recorded By Document 09/26/17 13:46 DV [id number] 09/26/17 14:27 DV Wound Center Nurse 1 [Ulcer Assessment] #7 LATERAL LLE- POST OP 09/12/17 -Combined with other wound No -Current Size (cm) - Length 23.0 -Current Size (cm) - Width 8.7 WC - Nurse 2 - General Ulcer CM Notes Start: 09/26/17 13:39 Freq: Status: Active Protocol: Activity Type Activity Date Activity User E-Sign Co-Sign Detail Recorded Client Recorded Date Recorded By Document 09/26/17 14:48 [id number] 09/26/17 14:59 Wound Center Nurse 2 [Procedure/Treatment] Neurological: Cranial nerves II-XII grossly intact, Neuro grossly intact Psych/Mental Status: Normal Affect, Appropriate, Alert and oriented to time, place, person, mood and affect Debridement Note Post-Debridement Measurements/Treatment WC - Nurse 2 - General Ulcer CM Notes Start: 09/26/17 13:39 Freq: Status: Active Protocol: Activity Type Activity Date Activity User E-Sign Co-Sign Detail Recorded Client Recorded Date Recorded By Document 09/26/17 14:48 [id number] 09/26/17 14:59 Wound Center Nurse 2 #7 LATERAL LLE- POST OP 09/12/17 -Time 14:48 -Correct Patient Yes -Correct Side, Site, Position Yes -Correct Procedure Yes Laterality: Left - Lateral calf Type of Debridement: Excisional debridement Anesthesia Used: 4% Lidocaine Solution Depth: Down to and including healthy tissue, in the subcutaneous layer Percentage of wound debrided: 100 Instrument Used: 5mm curette Severity: Fat Layer Exposed Amount of bleeding with debridement: Mild Bleeding Controlled with: Compression and gauze Patient tolerated procedure well Assessment/Plan Active Problems Leg swelling (Chronic) Traumatic open wound of left lower leg (Acute) Open wound of left lower leg (Acute) Assessment: This is a 77-year-old male with a recent traumatic injury to the left lateral calf. At this time, the traumatic wound appears generally healthy, without evidence of infection. Plan: Current measures are to be continued. Wound VAC will be continued, with change of the wound VAC every several days, with assistance of home health nursing personnel. Patient will return in approximately 1 week for reassessment. Intake of a well-balanced and nutritious diet has been advised. Patient has been advised to elevate his lower extremities, to minimize swelling and edema. He is to continue the antibiotics which have been previously prescribed. The patient is not a smoker. Influenza vaccine was not administered today. Patient stands 5 feet 4 inches tall. He weighs 210 pounds. His BMI is 36.0, which places him in a class II category. Weight loss has been recommended, with collaboration with his primary care physician in this regard. 09/26/17 1536 <Electronically signed by Oz Cooper MD> Date Oz Cooper MD CC: Signed PNP Collected: 09/25/2017 Status: F Source: [facility] [address] [place] [address] REPOSITORY TYPE CODE TESTS RESULT OUT OF REFERENCE UNITS RANGE LAB PLTNEU Negative PNP Negative Performed By: #### PLTNEU, TT, DRVVT, PTTI, FXIIC, FXIC, FIXC, HYPER #### [place] [address] THROMBIN TIME Collected: 09/25/2017 Status: F Source: [facility] [address] REPOSITORY TYPE CODE TESTS RESULT OUT OF REFERENCE UNITS RANGE LAB TT <18.6 sec Thrombin Time 17.5 Performed By: #### PLTNEU, TT, DRVVT, PTTI, FXIIC, FXIC, FIXC, HYPER #### [place] [address] DILUTE RVVT Collected: 09/25/2017 Status: F Source: [facility] [address] [place] [address] REPOSITORY TYPE CODE TESTS RESULT OUT OF REFERENCE UNITS RANGE LAB DRVSCN 32.7-46.7 sec High DRVVT Screen 50.1 LAB DRVRAT <1.21 DRVVT Confirm 1.17 Ratio LAB DRVMIX 32.7-46.7 sec DRVVT 1:1 Mix 44.3 Performed By: #### PLTNEU, TT, DRVVT, PTTI, FXIIC, FXIC, FIXC, HYPER #### [place] [id number] PTT INCUB ADD ON Collected: 09/25/2017 Status: F Source: [place] [address] [place] [address] REPOSITORY TYPE CODE TESTS RESULT OUT OF REFERENCE UNITS RANGE LAB APTTSC 24.4-33.4 sec High APTT 33.8 Screen LAB IMPTT <33.2 sec Immed. 30.6 PTT 1:1 Mix LAB 1HRPTT <35.0 sec Incub. 33.0 PTT 1:1 Mix Performed By: #### PLTNEU, TT, DRVVT, PTTI, FXIIC, FXIC, FIXC, HYPER #### [place] [address] FACTOR XII:C ASSAY Collected: 09/25/2017 Status: F Source: [place] 12:[address] [facility] REPOSITORY TYPE CODE TESTS RESULT OUT OF REFERENCE UNITS RANGE LAB FXIIC 69-192 % Factor XII:C 132 Assay Performed By: #### PLTNEU, TT, DRVVT, PTTI, FXIIC, FXIC, FIXC, HYPER #### [place] [id number] FACTOR XI:C ASSAY Collected: 09/25/2017 Status: F Source: [place] 12:[address] [facility] REPOSITORY TYPE CODE TESTS RESULT OUT OF REFERENCE UNITS RANGE LAB FXIC 68-175 % Factor XI:C 118 Assay Performed By: #### PLTNEU, TT, DRVVT, PTTI, FXIIC, FXIC, FIXC, HYPER #### [place] [address] FACTOR IX:C ASSAY Collected: 09/25/2017 Status: F Source: [place] [address] [place] [address] REPOSITORY TYPE CODE TESTS RESULT OUT OF REFERENCE UNITS RANGE LAB FIXC 77-173 % Factor IX:C 140 Assay Performed By: #### PLTNEU, TT, DRVVT, PTTI, FXIIC, FXIC, FIXC, HYPER #### [place] [address] HYPERCOAG DIAG PNL Collected: 09/25/2017 Status: F Source: [place] 12:[address] [facility] REPOSITORY TYPE CODE TESTS RESULT OUT OF REFERENCE UNITS RANGE LAB PRCFUN 76-147 % Protein C Functional 106 LAB PRSCLT 59-131 % Protein S Clottable 73 LAB AT3ASY 84-138 % Antithrombin Assay 94 LAB APCR >2.06 APC Resistance 2.51 LAB FVIIIC 50-173 % Factor VIII:C High Assay 193 LAB HEXSCN 45.0-59.9 sec Hex Phase Screen 55.1 LAB HEXMIX 41.8-54.9 sec Hex Phase Confirm 50.5 LAB HEXDEL <9.1 delta sec Hex Phase Delta 4.6 LAB HYPINT Interpretation (NOTE) Result Comment: Performing Pathologist: Brown Ball M.D. Abnormal - see comment below. SIGNIFICANT FINDINGS: 1. Acute phase response. 2. 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 A laboratory evaluation for congenital and acquired risk factors for thrombophilia was performed. Both the PT and APTT results are normal. However, the APTT was elevated when tested with an alternate reagent/instrument system. An anti Xa assay was negative; unfractionated heparin and direct Xa inhibitor effect was not detected. A normal thrombin time (TT) makes a heparin and/or direct thrombin inhibitor effect unlikely. LUPUS ANTICOAGULANT AND ANTIPHOSPHOLIPID ANTIBODY TESTING: Laboratory testing was performed for evaluation of a lupus anticoagulant due to the finding of an elevated APTT value. There is no evidence for a lupus anticoagulant or other coagulation inhibitor at this time. The IgM anticardiolipin antibody titer is minimally elevated. This is of doubtful clinical significance. The IgG and IgA anticardiolipin antibody titers were negative. PROTEIN STUDIES: The clottable fibrinogen and factor VIII levels are both increased with a normal C-reactive protein (CRP). A persistent elevation of factor VIII has been associated with an increased risk of venous thrombosis. Elevated fibrinogen has been associated with cardiovascular disease, but its association with venous thrombosis is not well defined. Suggest rechecking the factor VIII, fibrinogen and CRP levels in 8-12 weeks to determine whether the factor VIII is still elevated and the acute phase response has resolved. ADDITIONAL STUDIES: Assays for factors IX, XI and XII were performed to rule out an intrinsic pathway factor deficiency as a cause for the isolated prolonged APTT, and all were within the normal reference range. The cause of the mildly elevated APTT noted in one instrument/reagent test system is not clear from the testing performed. This result may be a variant of normal. Clinically significant causes of bleeding with an abnormal APTT have been ruled out. GENOTYPING STUDIES: The activated protein C resistance ratio (APC-R) is normal. The Factor V Leiden mutation is unlikely. 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 This is an established risk factor for venous thrombosis. Please refer to the interpretation provided with the prothrombin genotyping result for further diagnostic and prognostic information. Other assay results were within the normal range. Please correlate these laboratory results with clinical findings and medication history. THE FOLLOWING TESTS WERE ADDED AND ARE REPORTED SEPARATELY: PTTI, DRVVT, PNP, TT, Factors IX, XI ,and XII. LAB CARDG 0-9 GPL IgG Cardiolipin Ab. <9 Result Comment: <10 GPL Negative 10-40 GPL Equivocal >40 GPL Positive The following results were obtained with the [employer] QUANTA Lite CHELA IgG III ANH. Cardiolipin IgG values obtained with the different manufacturers' assay methods may not be used interchangeably. The mag nitude of the reported IgG levels cannot be correlated to an endpoint titer. LAB CARDM 0-11 MPL IgM Cardiolipin High Ab. 22 Result Comment: <12 MPL Negative 12-40 MPL Equivocal >40 MPL Positive The following results were obtained with the [employer] QUANTA Lite CHELA IgM III ANH. Cardiolipin IgM values obtained with different manufacturers' assay methods may not be used interchangeably. The magnitu de of the reported IgM levels cannot be correlated to an endpoint titer. LAB CARDA 0-11 APL IgA Cardiolipin Ab. <9 Result Comment: <12 APL Negative 12-40 APL Equivocal >40 APL Positive The following results were obtained with an [employer] QUANTA Lite CHELA IgA III ANH. Cardiolipin IgA values obtained with different manufacturers' assay methods may not be used interchangeably. The magnitud e of the reported IgA levels cannot be correlated to an endpoint titer. LAB HCYPL 6.4-13.7 umol/L Homocysteine, Plasma 11.3 LAB PSEC 9.7-13.0 sec PT Sec 11.2 LAB INR 0.9-1.3 PT INR 1.1 Result Comment: Vitamin K Antagonist (VKA) Therapeutic Range: INR 2 to 3 (Target INR of 2.5) Note: For patients treated with VKA drugs, such as warfarin, the [employer] 2012 Guideline recommends a therapeutic INR range of 2 to 3 (target INR of 2.5). This recommendation includes high-risk patients with antiphospholipid syndrome with previous arterial or venous thromboembolism, current-generation mechanical or bioprosthetic aortic heart valve replacement. Note: Patients with mechanical aortic valve replacement and additional risk factors for thromboembolic events (atrial fibrillation, previous thromboembolism, LV dysfunction, hypercoagulable conditions) or an older generation mechanical AVR (i.e., ball in-Cage) or any mechanical MVR should have a INR therapeutic range of 2.5 to 3.5 (target INR of 3). Alva GH, et al. Chest 2012, 141:7S-47S Anaya CARTER et al. [facility] 2017, 70: 252-289 LAB APTT 23.0-32.4 sec APTT 27.2 Result Comment: Unfractionated Heparin Therapeutic Ranges: Standard Heparin Nomogram: 53 to 78 seconds (anti-Xa level of 0.3 to 0.7 U/ml) Low Dose/ACS Nomogram: 49 to 67 seconds (anti-Xa level of 0.2 to 0.5 U/ml) Stroke Treatment Nomogram: 49 to 67 seconds (anti-Xa level of 0.2 to 0.5 U/ml) Note: The APTT therapeutic range has been determined for the current lot of laboratory APTT reagent in use throughout the [facility]. LAB FIBCT 200-400 mg/dL Fibrinogen High 585 Result Comment: Result rechecked. Sample checked for a clot. LAB CRP <0.9 mg/dL C-Reactive 0.3 Protein LAB PTMUT PT Gene Mut Heterozygous Result LAB PTINT PT Gene The DNA sample Report contains one copy of the prothrombin gene [id number] point mutation in the 3' untranslated region (heterozygous mutation). This mutation is associated with an approx. 3 fold increased risk of venous thrombosis in heterozygotes. This risk may relate to an elevation in prothrombin levels. Result Comment: The [id number] mutation acts synergistically with the Factor V Leiden [id number] mutation and other congenital deficiencies (such as protein C, protein S, and antithrombin) in the development o f venous thrombosis. Venous thrombosis is a multifactorial disorder, and other causes of venous thrombosis are not excluded. This mutation has also been associated with obstetrical complications such as severe pre-eclampsia, placental abruption, severe growth retardation and intrauterine demise. Consider genetic consultation and counseling of potentially affected family members regarding this laboratory testing. This assay was performed by polymerase chain reaction and fluorescence monitoring using hybridization probes. LAB PTREV PT Reviewed by Gene Review Brown Ball MD ([id number]) Performed By: #### PLTNEU, TT, DRVVT, PTTI, FXIIC, FXIC, FIXC, HYPER #### [facility] [address] [address] PROGRESS Observed: 09/25/2017 Status: COMPLETED Source: [place] 11:36 AM [facility] REPOSITORY HNO ID: [id number] Author: Lambert Larios Service: (none) Author Type: Physician Type: Progress Notes Filed: 09/25/2017 1:34 PM Note Text: Conversation: Transition Of Care (Newest Message First) September 18, 2017 ? ? 11:04 AM Dominique Jimenez LPN routed this conversation to Lambert Larios September 17, 2017 Dominique Jimenez LPN ? 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 Please verify follow ups arranged with specialists and HHS arranged? Verify meds too.TRANSITION CARE MANAGEMENT (TCM) INITIAL CONTACT Speech Coach Outreach ? Provider Action/FYI: Message left for pt to return clal to a nurse Called pt again and all reviewed ? Initial contact with patient post discharge, spoke to patient. Patient identified by name and . ? SUMMARY: -Pt discharged from [facility] on 09/16/17. -Admitted for: Cellulitis Spoke to pt he says several days before this he fell in the barn and to ER for 48 stiches. Several days later this became infected and back to the hospital for treatment. ? Do you have a hospital follow up appointment with your PCP? Appointment on 09/25/17 with pcp. This was arranged today with this call ? MEDICATIONS: Many patients have questions or concerns about their medications once they are home. Were you prescribed any new medications? Yes augmentin 875 one po twice daily for 14 tablets started 09/16/17 cipro 500 mg one po twice daily #14 tablets started 09/16/17 norco 5/325 mg one po every 4 hours as needed severe pain#20 tablets ? Were you told to hold any medications? No Were any of your medications discontinued? No ? Do you have any questions about getting or taking your medications? No ? Do you have all the necessary equipment and supplies at home? Yes Pt says [facility] is coming today to change wound dressing and [facility] is coming today to review his wound vac. He says wound center is to contact pt t for care. ? Medical records from recent hospitalization: Placed for provider to review Transitional Care Management Progress Note The patients TCM visit was performed within the 14 days of discharge. Patient's Date of discharge: 09/17/2017 Date of initial coordinator contact after discharge: 09/16/2017 Discharge diagnosis: Cellulitis and abscess of the left leg. Medication review completed Yes Sudha Kilgore LPN Provider Documentation: In follow-up of hospitalization, Carissa Yip is a 76 year old male with the chief complaint of bleeding from wound site. He fell and lacerated his left leg 09/06. This was primarily treated in ED, then developed subsequent infection. He was admitted 09/10-09/16 where wide debridement was done. He was discharged on Cipro and Augmentin which he finished 2 days ago. He had a wound vac and was being seen at the Wound Center. He complained of new swelling of his right leg for several days. He had pulmonary embolism last January and completed a course of Xarelto, which was discontinued September 17. He was scheduled for hypercoagulable work up. 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 Tract Symptoms Depression With Anxiety Esophageal Reflux Macular Degeneration (Senile) of Retina, Unspecified Diabetes Mellitus Type 2, Controlled, Without Complications (Hcc) Hyperlipidemia Rosacea Essential Hypertension Generalized Osteoarthritis of Multiple Sites Benign Neoplasm of Colon Gout Venous Insufficiency of Leg Iron Deficiency Anemia Due to Chronic Blood Loss Inflammatory Polyarthropathy of Multiple Sites (Hcc) Unsteady Gait Uncomplicated Severe Persistent Asthma Other Pulmonary Embolism Without Acute Cor Pulmonale (Hcc) Pulmonary Hypertension Memory Disturbance Obesity, Class I, BMI 30-34.9 E66.9 Current Outpatient Prescriptions: sertraline (ZOLOFT) 100 mg tablet Take 1.5 tablets by mouth once daily. montelukast (SINGULAIR) 10 mg tablet Take 1 tablet by mouth daily at bedtime. nitroglycerin sublingual (NITROQUICK) 0.4 mg SL tablet Dissolve 1 tablet under the tongue every 5 minutes as needed for Chest Pain. guaiFENesin (MUCINEX) 600 mg 12 hr tablet Take 1 tablet by mouth twice daily. ADVAIR HFA 230-21 mcg/actuation inhaler take 2 inhalations by mouth twice a day Rinse mouth after use omeprazole (PRILOSEC) 20 mg capsule Take 1 capsule by mouth daily before breakfast. 1/2 hr before meal. lisinopril (ZESTRIL, PRINIVIL) 20 mg tablet Take 1 tablet by mouth once daily. atorvastatin (LIPITOR) 10 mg tablet take 1 tablet by mouth at bedtime VENTOLIN HFA 90 mcg/actuation inhaler inhale 2 puffs every 4 hours if needed SPIRIVA WITH HANDIHALER 18 mcg inhalation capsule inhale the contents of one capsule in the handihaler once daily nystatin-triamcinolone (MYCOLOG II) cream Apply 1 application to affected area twice daily as needed. Genital rash. azelastine (ASTELIN,ASTEPRO) 0.1% nasal spray instill 2 sprays into each nostril twice a day ipratropium-albuterol (DUONEB) 0.5 mg-3 mg(2.5 mg base)/3 mL nebu Inhale 3 mL as instructed four times daily as needed. by nebulizer over 5 to 15 minutes. EPINEPHrine (EPIPEN) 0.3 mg/0.3 mL auto-injector Inject 0.3 mL intramuscularly as needed. albuterol HFA (PROVENTIL HFA) 90 mcg/actuation inhaler Inhale 2 Puffs as instructed. polyethylene glycol 3350 (MIRALAX, GLYCOLAX) 17 gram/dose powder Take 17 g by mouth once daily. Take one (1) capful in 8oz of liquid each day. ferrous sulfate 325 mg (65 mg iron) tablet Take one(1) tablet two(2) times daily. (Patient taking differently: Take 325 mg by mouth once daily. Take one(1) tablet two(2) times daily. ) ipratropium (ATROVENT) 0.02 % nebulizer solution 500 mcg (one ampule) nebulized four times a day as needed. Vitamin A-Vit C-Vit E-Zinc-Cu (OCUVITE PRESERVISION) ORAL Tab Take one(1) tablet two(2) times daily. furosemide (LASIX) 40 mg tablet Take 1 tablet by mouth once daily for 7 days. leflunomide (ARAVA) 10 mg tablet Take 10 mg by mouth once daily. fluticasone (FLONASE) 50 mcg/actuation nasal spray instill 2 sprays into each nostril twice a day COMPOUNDED PRESCRIPTION Polypodium Leucotomos extract (Daily Defense). Take 2 capsules once a day. 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 No current facility-administered medications for this visit. REVIEW OF SYSTEMS GENERAL: No weight loss, malaise or fevers RESPIRATORY: Negative unusual dyspnea or cough. CARDIOVASCULAR: Negative for chest pain, or palpitations GI: No nausea, vomiting. Some diarrhea from recent antibiotics. : No history of dysuria, frequency or incontinence MUSCULOSKELETAL: Positive for joint pains, gait problems. NEURO: No history of headaches, syncope. BP 126/60 (BP Site: Left Arm, BP Position: Sitting, BP Cuff Size: Regular Adult) Pulse 84 Temp 36.2 ?C (97.2 ?F) (Left Tympanic) Resp 20 Wt 95.3 kg (210 lb) BMI 33.89 kg/m? PHYSICAL EXAM: General Appearance: alert, ambulatory with rollator walker, on O2, no acute distress. Eyes: Conjunctivae pink. Neck: Negative findings: no asymmetry, masses, or scars, no jugular venous distention. Lungs: No wheezes, few rhonchi at the bases. Heart: RRR without murmur, gallop, or rubs. No ectopy. Abdomen: Abdomen soft, non-tender. Extremities: Edema: 3+, pitting right leg with calf tenderness. No skin breakdown. 2+ in left leg but left leg has compression wrappings and wound vac in place.. Neurologic: Non focal. ASSESSMENT/PLAN: 1. Edema, unspecified type - ICD9: 782.3, ICD10: R60.9 (primary diagnosis) Venous insufficiency rule out deep vein thrombosis. - US LEG VEIN DVT UNL VAS LAB - FUROSEMIDE 40 MG TABLET. Take one(1) tablet daily for 7 days. 2. Cellulitis of left leg - ICD9: 682.6, ICD10: L03.116 Resolved. 3. Open wound of left lower extremity, subsequent encounter - ICD9: V58.89, 891.0, ICD10: S81.802D Per Wound Center. 4. Other chronic pulmonary embolism without acute cor pulmonale (HCC) - ICD9: 416.2, ICD10: I27.82 Do hypercoagulable work up now. He may need to restart rivaroxaban. Lambert Larios MD CNOV Observed: 09/25/2017 Status: COMPLETED Source: [place] 11:00 AM [facility] REPOSITORY Office Visit (INTMWS) PHICARISSA ([id number]) 1940 M Date Time Provider Department 09/25/17 11:00 AM LAMBERT LARIOS [facility] During your visit today, we recorded the following information about you: Temperature Pulse Respiration Blood pressure 97.2 degrees 84/minute 20/minute 126/60 Weight 95.3 kg Lambert Larios 09/25/2017 1:34 PM Signed Conversation: Transition Of Care (Newest Message First) September 18, 2017 ? ? 11:04 AM Dominique Jimenez LPN routed this conversation to Lambert Larios September 17, 2017 Dominique Jimenez LPN ? 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 Please verify follow ups arranged with specialists and HHS arranged? Verify meds too.TRANSITION CARE MANAGEMENT (TCM) INITIAL CONTACT Speech Coach Outreach ? Provider Action/FYI: Message left for pt to return clal to a nurse Called pt again and all reviewed ? Initial contact with patient post discharge, spoke to patient. Patient identified by name and . ? SUMMARY: -Pt discharged from [facility] on 09/16/17. -Admitted for: Cellulitis Spoke to pt he says several days before this he fell in the barn and to ER for 48 stiches. Several days later this became infected and back to the hospital for treatment. ? Do you have a hospital follow up appointment with your PCP? Appointment on 09/25/17 with pcp. This was arranged today with this call ? MEDICATIONS: Many patients have questions or concerns about their medications once they are home. Were you prescribed any new medications? Yes augmentin 875 one po twice daily for 14 tablets started 09/16/17 cipro 500 mg one po twice daily #14 tablets started 09/16/17 norco 5/325 mg one po every 4 hours as needed severe pain#20 tablets ? Were you told to hold any medications? No Were any of your medications discontinued? No ? Do you have any questions about getting or taking your medications? No ? Do you have all the necessary equipment and supplies at home? Yes Pt says [facility] is coming today to change wound dressing and [facility] is coming today to review his wound vac. He says wound center is to contact pt t for care. ? Medical records from recent hospitalization: Placed for provider to review Transitional Care Management Progress Note The patients TCM visit was performed within the 14 days of discharge. Patient's Date of discharge: 09/17/2017 Date of initial coordinator contact after discharge: 09/16/2017 Discharge diagnosis: Cellulitis and abscess of the left leg. Medication review completed Yes Sudha Kiglore LPN Provider Documentation: In follow-up of hospitalization, Carissa Yip is a 76 year old male with the chief complaint of bleeding from wound site. He fell and lacerated his left leg 09/06. This was primarily treated in ED, then developed subsequent infection. He was admitted 09/10- 09/16 where wide debridement was done. He was discharged on Cipro and Augmentin which he finished 2 days ago. He had a wound vac and was being seen at the Wound Center. He complained of new swelling of his right leg for several days. He had pulmonary embolism last January and completed a course of Xarelto, which was discontinued September 17. He was scheduled for hypercoagulable work up. 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 Tract Symptoms Depression With Anxiety Esophageal Reflux Macular Degeneration (Senile) of Retina, Unspecified Diabetes Mellitus Type 2, Controlled, Without Complications (Hcc) Hyperlipidemia Rosacea Essential Hypertension Generalized Osteoarthritis of Multiple Sites Benign Neoplasm of Colon Gout Venous Insufficiency of Leg Iron Deficiency Anemia Due to Chronic Blood Loss Inflammatory Polyarthropathy of Multiple Sites (Hcc) Unsteady Gait Uncomplicated Severe Persistent Asthma Other Pulmonary Embolism Without Acute Cor Pulmonale (Hcc) Pulmonary Hypertension Memory Disturbance Obesity, Class I, BMI 30-34.9 E66.9 Current Outpatient Prescriptions: sertraline (ZOLOFT) 100 mg tablet Take 1.5 tablets by mouth once daily. montelukast (SINGULAIR) 10 mg tablet Take 1 tablet by mouth daily at bedtime. nitroglycerin sublingual (NITROQUICK) 0.4 mg SL tablet Dissolve 1 tablet under the tongue every 5 minutes as needed for Chest Pain. guaiFENesin (MUCINEX) 600 mg 12 hr tablet Take 1 tablet by mouth twice daily. ADVAIR HFA 230-21 mcg/actuation inhaler take 2 inhalations by mouth twice a day Rinse mouth after use omeprazole (PRILOSEC) 20 mg capsule Take 1 capsule by mouth daily before breakfast. 1/2 hr before meal. lisinopril (ZESTRIL, PRINIVIL) 20 mg tablet Take 1 tablet by mouth once daily. atorvastatin (LIPITOR) 10 mg tablet take 1 tablet by mouth at bedtime VENTOLIN HFA 90 mcg/actuation inhaler inhale 2 puffs every 4 hours if needed SPIRIVA WITH HANDIHALER 18 mcg inhalation capsule inhale the contents of one capsule in the handihaler once daily nystatin-triamcinolone (MYCOLOG II) cream Apply 1 application to affected area twice daily as needed. Genital rash. azelastine (ASTELIN,ASTEPRO) 0.1% nasal spray instill 2 sprays into each nostril twice a day ipratropium-albuterol (DUONEB) 0.5 mg-3 mg(2.5 mg base)/3 mL nebu Inhale 3 mL as instructed four times daily as needed. by nebulizer over 5 to 15 minutes. EPINEPHrine (EPIPEN) 0.3 mg/0.3 mL auto-injector Inject 0.3 mL intramuscularly as needed. albuterol HFA (PROVENTIL HFA) 90 mcg/actuation inhaler Inhale 2 Puffs as instructed. polyethylene glycol 3350 (MIRALAX, GLYCOLAX) 17 gram/dose powder Take 17 g by mouth once daily. Take one (1) capful in 8oz of liquid each day. ferrous sulfate 325 mg (65 mg iron) tablet Take one(1) tablet two(2) times daily. (Patient taking differently: Take 325 mg by mouth once daily. Take one(1) tablet two(2) times daily. ) ipratropium (ATROVENT) 0.02 % nebulizer solution 500 mcg (one ampule) nebulized four times a day as needed. Vitamin A-Vit C-Vit E-Zinc-Cu (OCUVITE PRESERVISION) ORAL Tab Take one(1) tablet two(2) times daily. furosemide (LASIX) 40 mg tablet Take 1 tablet by mouth once daily for 7 days. leflunomide (ARAVA) 10 mg tablet Take 10 mg by mouth once daily. fluticasone (FLONASE) 50 mcg/actuation nasal spray instill 2 sprays into each nostril twice a day COMPOUNDED PRESCRIPTION Polypodium Leucotomos extract (Daily Defense). Take 2 capsules once a day. 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 No current facility-administered medications for this visit. REVIEW OF SYSTEMS GENERAL: No weight loss, malaise or fevers RESPIRATORY: Negative unusual dyspnea or cough. CARDIOVASCULAR: Negative for chest pain, or palpitations GI: No nausea, vomiting. Some diarrhea from recent antibiotics. : No history of dysuria, frequency or incontinence MUSCULOSKELETAL: Positive for joint pains, gait problems. NEURO: No history of headaches, syncope. BP 126/60 (BP Site: Left Arm, BP Position: Sitting, BP Cuff Size: Regular Adult) Pulse 84 Temp 36.2 ?C (97.2 ?F) (Left Tympanic) Resp 20 Wt 95.3 kg (210 lb) BMI 33.89 kg/m? PHYSICAL EXAM: General Appearance: alert, ambulatory with rollator walker, on O2, no acute distress. Eyes: Conjunctivae pink. Neck: Negative findings: no asymmetry, masses, or scars, no jugular venous distention. Lungs: No wheezes, few rhonchi at the bases. Heart: RRR without murmur, gallop, or rubs. No ectopy. Abdomen: Abdomen soft, non-tender. Extremities: Edema: 3+, pitting right leg with calf tenderness. No skin breakdown. 2+ in left leg but left leg has compression wrappings and wound vac in place.. Neurologic: Non focal. ASSESSMENT/PLAN: 1. Edema, unspecified type - ICD9: 782.3, ICD10: R60.9 (primary diagnosis) Venous insufficiency rule out deep vein thrombosis. - US LEG VEIN DVT UNL VAS LAB - FUROSEMIDE 40 MG TABLET. Take one(1) tablet daily for 7 days. 2. Cellulitis of left leg - ICD9: 682.6, ICD10: L03.116 Resolved. 3. Open wound of left lower extremity, subsequent encounter - ICD9: V58.89, 891.0, ICD10: S81.802D Per Wound [facility]. 4. Other chronic pulmonary embolism without acute cor pulmonale (HCC) - ICD9: 416.2, ICD10: I27.82 Do hypercoagulable work up now. He may need to restart rivaroxaban. MD Ric Rao Victor H 09/25/2017 12:09 PM Signed DO HYPERCOAGULABLE PANEL (BLOOD WORK) TODAY. Referring Provider: LAMBERT LARIOS [[id number]] Allergies As of Date: 09/25/2017 Noted Allergy Reaction INDOCIN (INDOMETHACIN SODIUM) 04/01/2011 14 - Other: See Comments Comments: Wheezing, can take naprosyn PERCOCET (OXYCODONE-ACETAMINOPHEN)01/08/2005 9 - Itching SEASONAL ALLERGIES 11/12/2012 14 - Other: See Comments Comments: Cat, Goats, Dust mites, molds, trees, grasses, weed, ragweed Date Reviewed: 09/25/2017 Reviewed by: Sudha Kilgore LPN - Fully Assessed Reason for Visit: TCM [Other] Primary Visit Diagnosis:Edema, unspecified type [R60.9] Other Visit Diagnoses:Cellulitis of left leg [L03.116] Open wound of left lower extremity, subsequent encounter [S81.802D] Other chronic pulmonary embolism without acute cor pulmonale (HCC) [I27.82] Order(s):US LEG VEIN DVT UNL VAS LAB [[id number]] Order #: [id number] FUTURE furosemide (LASIX) 40 mg tabletTake 1 tablet by mouth once daily for 7 days.Disp: 7 tabletRfl: 0 Prescriptions as of 09/25/2017 Sig: SERTRALINE 100 MG TABLET Take 1.5 tablets by mouth onc* MONTELUKAST 10 MG TABLET Take 1 tablet by mouth daily * NITROGLYCERIN 0.4 MG SUBLINGU* Dissolve 1 tablet under the t* GUAIFENESIN ER 600 MG TABLET,* Take 1 tablet by mouth twice * ADVAIR HFA 230 MCG-21 MCG/ACT* take 2 inhalations by mouth t* OMEPRAZOLE 20 MG CAPSULE,ALEX* Take 1 capsule by mouth daily* LISINOPRIL 20 MG TABLET Take 1 tablet by mouth once d* ATORVASTATIN 10 MG TABLET take 1 tablet by mouth at bed* VENTOLIN HFA 90 MCG/ACTUATION* inhale 2 puffs every 4 hours * SPIRIVA WITH HANDIHALER 18 MC* inhale the contents of one ca* NYSTATIN-TRIAMCINOLONE 100,00* Apply 1 application to affect* AZELASTINE 137 MCG (0.1 %) NA* instill 2 sprays into each no* IPRATROPIUM-ALBUTEROL 0.5 MG-* Inhale 3 mL as instructed fou* EPINEPHRINE 0.3 MG/0.3 ML INJ* Inject 0.3 mL intramuscularly* ALBUTEROL SULFATE HFA 90 MCG/* Inhale 2 Puffs as instructed. POLYETHYLENE GLYCOL 3350 17 G* Take 17 g by mouth once daily* FERROUS SULFATE 325 MG (65 MG* Take one(1) tablet two(2) link* Patient taking differently: Take 325 mg by mouth once winnie* IPRATROPIUM BROMIDE 0.02 % SO* 500 mcg (one ampule) nebulize* PRESERVISION AREDS 7,160 UNIT* Take one(1) tablet two(2) link* FUROSEMIDE 40 MG TABLET Take 1 tablet by mouth once d* LEFLUNOMIDE 10 MG TABLET Take 10 mg by mouth once christiano* FLUTICASONE 50 MCG/ACTUATION * instill 2 sprays into each no* COMPOUNDED PRESCRIPTION Polypodium Leucotomos extract* Medication notes this encounter COMPOUNDED PRESCRIPTION >> Sudha Kilgore LPN 09/25/2017 11:28 AM >> SUDHA KILGORE LPN [facility] September 25, 2017 11:28 AM Course completed Problem List As Of Date 09/25/2017 Noted Resolved Asthma [J45.909] 08/25/2017 CHRONIC RHINITIS [J31.0] BPH without obstruction/lower urinary tract sym* ANXIETY STATE NOS [F41.1] 08/05/2014 Depression with anxiety [F41.8] Diverticulosis of colon (without mention of hem* 10/06/2012 ESOPHAGEAL REFLUX [K21.9] Internal hemorrhoids without mention of complic* 08/30/2010 Malignant neoplasm of prostate (HCC) [C61] INVALID FOR*08/05/2014 MACULAR DEGENERATION NOS [H35.30] Other specified iron deficiency anemias [D50.8] INVALID FOR*08/30/2010 Diabetes mellitus type 2, controlled, without c*INVALID FOR* Hyperlipidemia [E78.5] INVALID FOR* Personal history of colonic polyps [Z86.010] INVALID FOR*09/30/2011 More... FAMILY HX COLON CANCER [Z80.0] INVALID FOR*08/25/2017 PULMONARY NODULES [J98.4] INVALID FOR*10/06/2012 More... 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] INVALID FOR* Essential hypertension [I10] INVALID FOR* Generalized osteoarthritis of multiple sites [M*INVALID FOR* Benign neoplasm of rectum and anal canal [D12.8*INVALID FOR*10/06/2012 Benign neoplasm of colon [D12.6] INVALID FOR* Gout [M10.9] INVALID FOR* Venous insufficiency of leg [I87.2] INVALID FOR* Iron deficiency anemia due to chronic blood los*INVALID FOR* Inflammatory polyarthropathy of multiple sites *INVALID FOR* Unsteady gait [R26.81] INVALID FOR* Uncomplicated severe persistent asthma [J45.50] INVALID FOR* Other pulmonary embolism without acute cor pulm*INVALID FOR* Pulmonary hypertension (HCC) [I27.20] INVALID FOR* Memory disturbance [R41.3] INVALID FOR* Obesity, Class I, BMI 30-34.9 E66.9 [E66.9] INVALID FOR* Open wound of left lower extremity [S81.802A] INVALID FOR* Other instructions from your clinician: DO HYPERCOAGULABLE PANEL (BLOOD WORK) TODAY. Prescriptions ordered this encounter Disp Refills Start End FUROSEMIDE 40 MG TABLET 7 ta* 0 09/25/2017 10/02/2017 Route: ORAL Sig: Take 1 tablet by mouth once daily for 7 days. Medications Discontinued During This Encounter furosemide 20 mg tablet 5 ta* 0 10/04/2013 09/25/2017 Route: ORAL Sig: Take 1 tablet by mouth once daily for 5 days. Disc: Reason for discontinue is not on file. furosemide (LASIX) 20 mg tablet 7 ta* 0 01/15/2017 09/25/2017 Route: ORAL Sig: Take 1 tablet by mouth once daily for 7 days. Disc: Reason for discontinue is not on file. Disposition: Return in about 6 weeks (around 11/06/2017), or if symptoms worsen or fail to improve. Follow-up and Disposition History Recorded Encounter Status:Closed by LAMBERT LARIOS MD on 09/25/17 12 LEAD ELECTROCARDIOGRAM Observed: 09/22/2017 Status: F Source: [place] 2:41 PM [facility] REPOSITORY [facility] Cardiovascular Services [address] [place] [id number] Lead EKG 09/12/17 0523 MR#: [id number] Acct: [id number] Name: CARISSA YIP Rep #: [id number] : 1940 76 From: Ke Garcia MD Attending Dr: Chapis Minor MD Status: DIS IN Ordering Dr: Darius Gonzalez MD Date: 09/12/17 Location: OR3 Sex: M C Admitted: 09/10/17 Test Reason : AM EKG Blood Pressure : / mmHG Vent. Rate : 093 BPM Atrial Rate : 093 BPM P-R Int : 124 ms QRS Dur : 088 ms QT Int : 342 ms P-R-T Axes : 058 061 055 degrees QTc Int : 425 ms Normal sinus rhythm Normal ECG When compared with ECG of 05-SEP-2017 15:42, No significant change was found Confirmed by KE GARCIA MD ([id number]), graphics editor YARON WOODS ([id number]) on 09/22/2017 2:40:35 PM Referred By: [facility] Confirmed By:KE GARCIA MD 09/22/17 1440 Date Ke Garcia MD CC: Darius Gonzalez MD; Chapis Minor MD; Lambert Larios MD Signed PROGRESS Observed: 09/18/2017 Status: COMPLETED Source: [place] 2:30 PM [facility] [place] REPOSITORY HNO ID: [id number] Author: Leni Mcbride Service: (none) Author Type: Physician Truck Repair Supervisor Type: Progress Notes Filed: 09/18/2017 2:51 PM Note Text: [facility] Respiratory [place], 09/18/17: INTERVAL HISTORY: The patient is here for follow up of asthma. Recently admitted to [facility] secondary to cellulitis following a fall. He has a wound vac in place, which is being changed by home health. Patient completed course of Xarelto for PE. The patient has been compliant with therapy recommended at the last visit. Dry cough. No hemoptysis. No pleuritic chest pain. No wheezing. Exertional dyspnea, stable. Ambulating with wheeled walker. States he is climbing stairs. No nocturnal awakenings. Twice daily rescue bronchodilator use. No disruption in taste or voice associated with use of inhaled corticosteroid. No tremor, palpitations, or muscle cramping associated with bronchodilator inhalation. PMH: Reviewed with patient today. No changes. FAMH: Reviewed with patient today. No changes. SOCH: No changes. ROS: General: Generally feels good. Appetite good. Weight stable. No fevers or chills. Eyes, Ears, nose, throat: No post nasal drip, rhinorrhea, purulent nasal discharge, epistaxis, hoarseness. Vision stable. Cardiac: No angina, edema, orthopnea. GI: No heartburn, dysphagia. Improving diarrhea. Uro/PUMP ERECTOR: No dysuria, hesitancy, nocturia. Musculoskeletal: Little left leg pain. Neuro: No headache, focal weakness, tremor. Skin: No rash. Otherwise negative. Immunization History Administered Date(s) Administered Influenza Seasonal - High Dose - Age 65+ 01/25/2014 01/20/2016 01/30/2017 Influenza Seasonal Inj Age 3+ 02/01/2015 Influenza Vaccine, Split-Non Spec 03/17/2006 03/17/2007 03/23/2008 02/11/2009 03/08/2010 02/16/2011 02/21/2012 01/21/2013 Pneumococcal-13 Vac Conjugate 02/22/2015 10/10/2015 Pneumovax 06/04/2000 09/17/2010 TD Adult 11/10/2006 Tetanus Diphtheria Booster (Age >7) Pres Free 02/22/2016 Zostavax 04/01/2011 Allergies were verified and updated, and medications were reconciled with the patient at this visit. PHYSICAL EXAMINATION: BP 120/70 Pulse 105 Resp 18 SpO2 93% Gen: No acute distress. Cooperative with examination. ENT: Sclerae clear. EOMI. Nares clear. Oral hygeine and dentition good. Pharynx clear. No sign of oral thrush. Resp: No stridor, accessory respiratory muscle use, supra- sternal or intercostal retractions. No crackles, wheezes, rubs. CV: Regular rythm. Heart tones normal. Radial pulses normal. Abd: Non distended. MSK: No kyphoscoliosis, joint deformities. Ext: Warm and well perfused. No clubbing, cyanosis, edema. Skin: Color normal. Texture normal. No rash, eczema, urticaria. Neuro: Mental status normal. Affect normal. Muscle tone normal. No tremor. DATA REVIEW: CXR, 08/29/17 IMPRESSION: No residual infiltrate is evident. Pleural calcifications RESULT: Lines, tubes, and devices: ?None. Lungs and pleura: ?Stable bilateral pleural calcifications. No acute infiltrate. Resolution RIGHT basilar airspace disease. Cardiomediastinal silhouette: ?Normal cardiomediastinal silhouette. Other: ?None IMPRESSION and RECOMMENDATIONS: 1. Asthma, severe persistent with acute exacerbation. -Continue Mucinex 1 tablet twice daily. -Continue Advair 2 inhalations twice daily and Spiriva 1 inhalation in the morning. Rinse mouth afterwards. -Albuterol rescue inhaler 2 inhalations up to every 4 hours as needed for shortness of breath/wheezing. You may use your rescue inhaler prior to increased activity and exertion. -Up to date on influenza and pneumonia vaccinations. ?? 2. Pulmonary Embolism -Discontinued Xarelto on 09/17/17. Have labs drawn in 2 weeks. Further recommendations to follow. ?? 3. Pulmonary Hypertension, multifactorial - Echo 05/02/[address] Verma. Improved right ventricular strain. I addressed the questions of the patient, and he expressed understanding and acceptance of my answers. Leni Mcbride PA-C [facility] Respiratory [place] [facility] Surgery [place] [address] [place] [address] [phone] CNOV Observed: 09/18/2017 Status: COMPLETED Source: [place] 2:30 PM [facility] REPOSITORY Office Visit (PULMWS) CARISSA YIP ([id number]) 1940 Feng Date Time Provider Department 09/18/17 2:30 PM LENI MCBRIDE PULMWS During your visit today, we recorded the following information about you: Pulse Respiration Blood pressure 105/minute 18/minute 120/70 Leni Mcbride 09/18/2017 2:51 PM Signed [facility] Res[facility] [place], 09/18/17: INTERVAL HISTORY: The patient is here for follow up of asthma. Recently admitted to [facility] secondary to cellulitis following a fall. He has a wound vac in place, which is being changed by home health. Patient completed course of Xarelto for PE. The patient has been compliant with therapy recommended at the last visit. Dry cough. No hemoptysis. No pleuritic chest pain. No wheezing. Exertional dyspnea, stable. Ambulating with wheeled walker. States he is climbing stairs. No nocturnal awakenings. Twice daily rescue bronchodilator use. No disruption in taste or voice associated with use of inhaled corticosteroid. No tremor, palpitations, or muscle cramping associated with bronchodilator inhalation. PMH: Reviewed with patient today. No changes. FAMH: Reviewed with patient today. No changes. SOCH: No changes. ROS: General: Generally feels good. Appetite good. Weight stable. No fevers or chills. Eyes, Ears, nose, throat: No post nasal drip, rhinorrhea, purulent nasal discharge, epistaxis, hoarseness. Vision stable. Cardiac: No angina, edema, orthopnea. GI: No heartburn, dysphagia. Improving diarrhea. Uro/PUMP ERECTOR: No dysuria, hesitancy, nocturia. Musculoskeletal: Little left leg pain. Neuro: No headache, focal weakness, tremor. Skin: No rash. Otherwise negative. Immunization History Administered Date(s) Administered Influenza Seasonal - High Dose - Age 65+ 01/25/2014 01/20/2016 01/30/2017 Influenza Seasonal Inj Age 3+ 02/01/2015 Influenza Vaccine, Split-Non Spec 03/17/2006 03/17/2007 03/23/2008 02/11/2009 03/08/2010 02/16/2011 02/21/2012 01/21/2013 Pneumococcal-13 Vac Conjugate 02/22/2015 10/10/2015 Pneumovax 06/04/2000 09/17/2010 TD Adult 11/10/2006 Tetanus Diphtheria Booster (Age >7) Pres Free 02/22/2016 Zostavax 04/01/2011 Allergies were verified and updated, and medications were reconciled with the patient at this visit. PHYSICAL EXAMINATION: BP 120/70 Pulse 105 Resp 18 SpO2 93% Gen: No acute distress. Cooperative with examination. ENT: Sclerae clear. EOMI. Nares clear. Oral hygeine and dentition good. Pharynx clear. No sign of oral thrush. Resp: No stridor, accessory respiratory muscle use, supra- sternal or intercostal retractions. No crackles, wheezes, rubs. CV: Regular rythm. Heart tones normal. Radial pulses normal. Abd: Non distended. MSK: No kyphoscoliosis, joint deformities. Ext: Warm and well perfused. No clubbing, cyanosis, edema. Skin: Color normal. Texture normal. No rash, eczema, urticaria. Neuro: Mental status normal. Affect normal. Muscle tone normal. No tremor. DATA REVIEW: CXR, 08/29/17 IMPRESSION: No residual infiltrate is evident. Pleural calcifications RESULT: Lines, tubes, and devices: ?None. Lungs and pleura: ?Stable bilateral pleural calcifications. No acute infiltrate. Resolution RIGHT basilar airspace disease. Cardiomediastinal silhouette: ?Normal cardiomediastinal silhouette. Other: ?None IMPRESSION and RECOMMENDATIONS: 1. Asthma, severe persistent with acute exacerbation. -Continue Mucinex 1 tablet twice daily. -Continue Advair 2 inhalations twice daily and Spiriva 1 inhalation in the morning. Rinse mouth afterwards. -Albuterol rescue inhaler 2 inhalations up to every 4 hours as needed for shortness of breath/wheezing. You may use your rescue inhaler prior to increased activity and exertion. -Up to date on influenza and pneumonia vaccinations. ?? 2. Pulmonary Embolism -Discontinued Xarelto on 09/17/17. Have labs drawn in 2 weeks. Further recommendations to follow. ?? 3. Pulmonary Hypertension, multifactorial - Echo 05/02/[address] Verma. Improved right ventricular strain. I addressed the questions of the patient, and he expressed understanding and acceptance of my answers. Leni Mcbride PA-C [facility] Respiratory [place] [address] [phone] Leni Mcbride 09/18/2017 2:50 PM Signed 1. Asthma, severe persistent with acute exacerbation. -Continue Mucinex 1 tablet twice daily. -Continue Advair 2 inhalations twice daily and Spiriva 1 inhalation in the morning. Rinse mouth afterwards. -Albuterol rescue inhaler 2 inhalations up to every 4 hours as needed for shortness of breath/wheezing. You may use your rescue inhaler prior to increased activity and exertion. -Up to date on influenza and pneumonia vaccinations. ?? 2. Pulmonary Embolism -Discontinued Xarelto on 09/17/17. Have labs drawn in 2 weeks. Further recommendations to follow. ?? 3. Pulmonary Hypertension, multifactorial - Echo 05/02/[address] Verma. Improved right ventricular strain. Referring Provider: LENI MCBRIDE [[id number]] Allergies As of Date: 09/18/2017 Noted Allergy Reaction INDOCIN (INDOMETHACIN SODIUM) 04/01/2011 14 - Other: See Comments Comments: Wheezing, can take naprosyn PERCOCET (OXYCODONE-ACETAMINOPHEN)01/08/2005 9 - Itching SEASONAL ALLERGIES 11/12/2012 14 - Other: See Comments Comments: Cat, Goats, Dust mites, molds, trees, grasses, weed, ragweed Date Reviewed: 09/18/2017 Reviewed by: Leni Mcbride - Fully Assessed Reason for Visit: Established Patient [175] Cmt: asthma Primary Visit Diagnosis:Asthma, late onset, severe persistent, uncomplicated [J45.50] Other Visit Diagnoses:Obesity, Class I, BMI 30-34.9 [E66.9] Other chronic pulmonary embolism without acute cor pulmonale (HCC) [I27.82] Pulmonary hypertension [I27.20] Order(s):SPIROMETRY BASELINE ONLY [[id number]] Order #: [id number] FUTURE NITRIC OXIDE, EXHALED [[id number]] Order #: [id number] FUTURE Prescriptions as of 09/18/2017 Sig: SERTRALINE 100 MG TABLET Take 1.5 tablets by mouth onc* MONTELUKAST 10 MG TABLET Take 1 tablet by mouth daily * NITROGLYCERIN 0.4 MG SUBLINGU* Dissolve 1 tablet under the t* GUAIFENESIN ER 600 MG TABLET,* Take 1 tablet by mouth twice * ADVAIR HFA 230 MCG-21 MCG/ACT* take 2 inhalations by mouth t* OMEPRAZOLE 20 MG CAPSULE,ALEX* Take 1 capsule by mouth daily* LISINOPRIL 20 MG TABLET Take 1 tablet by mouth once d* ATORVASTATIN 10 MG TABLET take 1 tablet by mouth at bed* LEFLUNOMIDE 10 MG TABLET Take 10 mg by mouth once christiano* VENTOLIN HFA 90 MCG/ACTUATION* inhale 2 puffs every 4 hours * SPIRIVA WITH HANDIHALER 18 MC* inhale the contents of one ca* NYSTATIN-TRIAMCINOLONE 100,00* Apply 1 application to affect* AZELASTINE 137 MCG (0.1 %) NA* instill 2 sprays into each no* IPRATROPIUM-ALBUTEROL 0.5 MG-* Inhale 3 mL as instructed fou* FLUTICASONE 50 MCG/ACTUATION * instill 2 sprays into each no* EPINEPHRINE 0.3 MG/0.3 ML INJ* Inject 0.3 mL intramuscularly* ALBUTEROL SULFATE HFA 90 MCG/* Inhale 2 Puffs as instructed. POLYETHYLENE GLYCOL 3350 17 G* Take 17 g by mouth once daily* FERROUS SULFATE 325 MG (65 MG* Take one(1) tablet two(2) link* Patient taking differently: Take by mouth once daily. Ta* IPRATROPIUM BROMIDE 0.02 % SO* 500 mcg (one ampule) nebulize* PRESERVISION AREDS 7,160 UNIT* Take one(1) tablet two(2) link* COMPOUNDED PRESCRIPTION Polypodium Leucotomos extract* Problem List As Of Date 09/18/2017 Noted Resolved Asthma [J45.909] 08/25/2017 CHRONIC RHINITIS [J31.0] BPH without obstruction/lower urinary tract sym* ANXIETY STATE NOS [F41.1] 08/05/2014 Depression with anxiety [F41.8] Diverticulosis of colon (without mention of hem* 10/06/2012 ESOPHAGEAL REFLUX [K21.9] Internal hemorrhoids without mention of complic* 08/30/2010 Malignant neoplasm of prostate (HCC) [C61] INVALID FOR*08/05/2014 MACULAR DEGENERATION NOS [H35.30] Other specified iron deficiency anemias [D50.8] INVALID FOR*08/30/2010 Diabetes mellitus type 2, controlled, without c*INVALID FOR* Hyperlipidemia [E78.5] INVALID FOR* Personal history of colonic polyps [Z86.010] INVALID FOR*09/30/2011 More... FAMILY HX COLON CANCER [Z80.0] INVALID FOR*08/25/2017 PULMONARY NODULES [J98.4] INVALID FOR*10/06/2012 More... 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] INVALID FOR* Essential hypertension [I10] INVALID FOR* Generalized osteoarthritis of multiple sites [M*INVALID FOR* Benign neoplasm of rectum and anal canal [D12.8*INVALID FOR*10/06/2012 Benign neoplasm of colon [D12.6] INVALID FOR* Gout [M10.9] INVALID FOR* Venous insufficiency of leg [I87.2] INVALID FOR* Iron deficiency anemia due to chronic blood los*INVALID FOR* Inflammatory polyarthropathy of multiple sites *INVALID FOR* Unsteady gait [R26.81] INVALID FOR* Uncomplicated severe persistent asthma [J45.50] INVALID FOR* Other pulmonary embolism without acute cor pulm*INVALID FOR* Pulmonary hypertension (HCC) [I27.20] INVALID FOR* Memory disturbance [R41.3] INVALID FOR* Obesity, Class I, BMI 30-34.9 E66.9 [E66.9] INVALID FOR* Other instructions from your clinician: 1. Asthma, severe persistent with acute exacerbation. -Continue Mucinex 1 tablet twice daily. -Continue Advair 2 inhalations twice daily and Spiriva 1 inhalation in the morning. Rinse mouth afterwards. -Albuterol rescue inhaler 2 inhalations up to every 4 hours as needed for shortness of breath/wheezing. You may use your rescue inhaler prior to increased activity and exertion. -Up to date on influenza and pneumonia vaccinations. ?? 2. Pulmonary Embolism -Discontinued Xarelto on 09/17/17. Have labs drawn in 2 weeks. Further recommendations to follow. ?? 3. Pulmonary Hypertension, multifactorial - Echo 05/02/[address] Verma. Improved right ventricular strain. Medications Discontinued During This Encounter rivaroxaban (XARELTO) 20 mg tablet 30 t* 0 07/07/2017 09/18/2017 Route: ORAL Sig: Take 1 tablet by mouth daily with dinner. Disc: Course of therapy completed Disposition: Return in about 3 months (around 12/19/2017). Follow-up and Disposition History Recorded Encounter Status:Closed by LENI MCBRIDE on 09/18/17 CONSULTATION Observed: 09/16/2017 Status: F Source: BRENDA 11:46 PM [facility] [place] REPOSITORY [facility] Medical Records Department [address] [place] [address] Consultation 09/16/17 1100 MR#: [id number] Acct: [id number] Name: CARISSA YIP Rep #: [id number] : 1940 76 From: Christy Hinds MD PCP: Lambert Larios MD Status: DIS IN Y Location: OR3 [id number] Reason for Consult Date of Consultation: 09/16/17 Reason for Consultation: Open surgical wound left leg. REFFERING PHYSICIAN: Dr. Chin. FNP: Dr. Hinds. History of Present Illness: The patient is a 76 year old M who sustained a complex wound left leg after falling on a shovel at home on 09/06/17. He went to the ED and had the wound cleansed and suture repaired. He was placed on Keflex. Xray showed no fracture. He cam to the ED a few days later on 09/10/17 because of increasing pain and redness and swelling in his left leg. He was placed on IV antibiotics with Vancomycin and Unasyn. There was also some necrotic skin present in the area of the suture repair. Dr. Chin from General Surgery was consulted and took the patient to the OR on 09/12/17 where he underwent incision and wide debridement of necrotic tissue in the left lower extremity. Wound care was started postop. Cultures showed Citrobacter freundii and Enterococcus faecalis. At present, he is on Cipro and Augmentin. I was asked to evaluate this patient for his large open surgical wound left anterolateral leg for surgical options for treatment as well as for wound care recommendations. Past Medical History Past Medical History (Chronic Problems): Chronic Problems Iron deficiency anemia (Chronic) Pulmonary nodule (Chronic) HLD (hyperlipidemia) (Chronic) Diverticulosis (Chronic) Asthma (Chronic) Hypertension (Chronic) Avulsion of skin (Chronic) Avulsion of skin of hand (Chronic) Obesity (Chronic) Osteoarthritis (Chronic) Penetrating injury right leg (Chronic) Pain in right leg (Chronic) Right leg swelling (Chronic) History of prostate cancer (Chronic) Allergic rhinitis (Chronic) Rheumatoid arthritis (Chronic) Pleural plaque (Chronic) Macular degeneration (Chronic) GERD (gastroesophageal reflux disease) (Chronic) Prostate ca (Chronic) Allergies indomethacin [From Indocin] Allergy (Verified 09/09/17 22:56) Itching indomethacin sodium [From Indocin] Allergy (Verified 09/09/17 22:56) Itching oxycodone HCl [From Percocet] Allergy (Verified 09/09/17 22:56) Itching Current Medications Acetaminophen (Tylenol) 650 mg PO Q6H PRN Hydrocodone Bitart/Acetaminophen (Ina 5mg-325mg) 1 tablet PO Q4H PRN Al Hydroxide/Mg Hydroxide (Mylanta Ii) 30 ml PO Q6H PRN Albuterol/Ipratropium (Duoneb) 3 ml INHALATION Q6HWA.RT SWATHI Amoxicillin/Clavulanate Potassium (Augmentin Tablet) 875 mg PO BID SWATHI Atorvastatin Calcium (Lipitor) 10 mg PO QHS SWATHI Azelastine HCl (Astelin) 2 spray NASAL BID SWATHI Bisacodyl (Dulcolax) 10 mg RECTAL DAILY PRN Budesonide (Pulmicort Aerosol) 0.5 mg INHALATION Q12H.RT SWATHI Ciprofloxacin HCl (Cipro) 500 mg PO BID SWATHI Docusate Sodium (Colace) 200 mg PO BID PRN Ferrous Sulfate (Ferrous Sulfate) 325 mg PO BIDCM [facility] Fluticasone Propionate (Flonase Nasal Remington) 2 spray NASAL BID SWATHI Glucagon () 1 mg IM .X1 PRN Guaifenesin (Mucinex) 600 mg PO BID SWATHI Ipratropium Prospect (Atrovent) 0.5 mg INHALATION 4X/DAY PRN Lactobacillus Acidophilus (Acidophilus) 2 tablet PO TID SWATHI Leflunomide (Leflunomide) 10 mg PO DAILY SWATHI Lisinopril (Zestril) 20 mg PO DAILY [facility] Metronidazole (Flagyl) 500 mg PO TID SWATHI Montelukast Sodium (Singulair) 10 mg PO QHS [facility] Morphine Sulfate () 1 - 2 mg IV Q4H PRN Multivitamins (Multivitamin) 1 tablet PO DAILYCM [facility] Nutritional Formula (Lactose Free) (Ensure Enlive) 120 ml PO 4X/DAY SWATHI Nystatin/Triamcinolone Acetonide (Mycolog) 1 applic TOPICAL BID SWATHI Ondansetron HCl (Zofran) 4 mg IV Q8H PRN Pantoprazole Sodium (Protonix) 20 mg PO DAILY [facility] Polyethylene Glycol (Miralax) 17 gm PO DAILY SWATHI Rivaroxaban (Xarelto) 20 mg PO DINNER SWATHI Sertraline HCl (Zoloft) 150 mg PO DAILY [facility] Zolpidem Tartrate (Ambien (Generic)) 5 mg PO QHS PRN Home Medications: Ambulatory Orders Medication Instructions Recorded Surgical History: - - Umbilical hernia repair, appendectomy, bilateral carpal tunnel surgery, Prostatectomy, Cataract surgery, L lens implant, L knee surgery followed by LTKR, L shoulder surgery, left total hip replacement. Smoking Status: Never smoker - *Family History Sibling History Items: Diabetes, Renal Disease, - - Patient's father at the age of 76 with history of colon cancer myocardial infarction. Patient's mother at age of 86 with a history of breast cancer. Maternal History Items: Cancer Paternal History Items: Cancer Review of Systems Comment: Constitutional: Denies: Chills, Fever, Weight Change. HEENT: Denies: Head Aches, Sinus Congestion, Sinus Drainage. Cardiovascular: Denies: Chest Pain, Palpitations. Respiratory: Denies: Cough, Shortness of breath at rest, Sputum production. Gastrointestinal: Denies: Abdominal Pain, Nausea, Vomiting. Genitourinary: Denies: Dysuria. Musculoskeletal: Reports: Leg Pain, Muscle pain. Denies: Joint Pain, Joint Tenderness. Skin: Reports: Wounds - Large wound as described. Denies: Rash. Neurological: Denies: Numbness, Tingling, Focal weakness. Psychiatric: Denies: Anxiety, Depression, Homicidal Ideations, Suicidal Ideations. Hematologic/ Lymphatic: Reports: Easy Bruising. Denies: Easy Bleeding - Physical Exam Physical Exam General: Alert, Oriented x3, Cooperative Oral: Moist Mucosa Neck: Supple and nontender. No cervical adenopathy. Lungs: Clear to auscultation. Cardiovascular: Regular rate, Regular Rhythm Abdomen: Soft, Non-Distended Extremities: - - Left anterolateral leg shows a large open surgical wound after recent incision and drainage and excisional debridement. Measures 25 x 8 x 1.2 cm. Some undermining laterally about 3 cm. The wound is clean. Muscle and fascia at base appear viable. Mild swelling present. No inguinal adenopathy. Toes are warm. Patient is able to put weight on the left leg. Skin: No rashes Neurological: Cranial nerves II-XII grossly intact Psych/Mental Status: Normal Affect, Appropriate Vital Signs Temp Pulse Resp BP Pulse Ox 98.2 F 99 18 117/52 L 96 09/16/17 08:47 09/16/17 08:47 09/16/17 08:47 09/16/17 08:47 09/16/17 08:47 Oxygen Flow Rate (L/min) 2 Oxygen Delivery Method Room Air Weight: 214 lb 11.684 oz Body Mass Index (BMI) 36.3 Intake and Output for Last 24 Hours Intake Total 2598 / 2598 1992 300 / 300 Output Total 75 / 75 Balance 2523 / 2523 1992 300 / 300 Microbiology Past 72 Hours 09/10/17 10:10 Gram Stain - Final POC Glucose POC Glucose 131 H 148 H 118 H POC Glucose 105 Assessment/Plan 1. Large open surgical wound left anterolateral leg. 2. s/p incision and drainage and excisional debridement by Dr. Chin on 09/12/17. Continue antibiotic therapy for the wound cultures that show Citrobacter freundii and Enterococcus faecalis with Cipro and Augmentin. The wound is clean and is showing signs of healing. The VAC can be placed at this time to help the healing process. Would also recommend an ISAAK wrap for compression to minimize swelling. Anticipate increased metabolic demands from the large wound. Encourage nutritional supplementation with protein to help the healing process. Recommend a Prealbumin level. After discharge can followup at the Wound Center in 2 weeks. Would continue the Cipro and Augmentin until the patient is seen at the Wound Center to reassess the wound to determine if additional antibiotics are needed. If there is a plateau in the healing process, can proceed with delayed closure with skin grafting. Code Visit Inpatient E AND M: 64069 Init Hosp L2 - ICD-10 - S81.802A, L02.416, L03.116 09/16/17 2346 <Electronically signed by Christy Hinds MD> Date Christy Hinds MD Cosigner Signature (if applicable): Date CC: Homero Chin MD; Christy Hinds MD; Chapis Minor MD; Chet Mckenna MD; Lambert Larios MD; [facility] Signed DISCHARGE SUMMARY Observed: 09/16/2017 Status: F Source: BRENDA 5:53 PM [facility] [place] REPOSITORY [facility] Medical Records Department [address] [place] [address] Discharge Summary 09/16/17 1229 MR#: [id number] Acct: [id number] Name: CARISSA YIP Rep #: [id number] : 1940 76 From: Chapis Minor MD PCP: Lambert Larios MD Status: DIS IN Y Location: OR3 [id number] Discharge Date and Diagnosis Date of Admission: 09/10/17 Date of Discharge: 09/16/17 - Primary Discharge Diagnosis Active and Suspected Problems Cellulitis of left leg (Acute) Abscess of left leg (Acute) - Secondary Discharge Diagnosis Chronic Problems Iron deficiency anemia (Chronic) Pulmonary nodule (Chronic) HLD (hyperlipidemia) (Chronic) Diverticulosis (Chronic) Asthma (Chronic) Hypertension (Chronic) Avulsion of skin (Chronic) Avulsion of skin of hand (Chronic) Obesity (Chronic) Osteoarthritis (Chronic) Penetrating injury right leg (Chronic) Pain in right leg (Chronic) Right leg swelling (Chronic) History of prostate cancer (Chronic) Allergic rhinitis (Chronic) Rheumatoid arthritis (Chronic) Pleural plaque (Chronic) Macular degeneration (Chronic) GERD (gastroesophageal reflux disease) (Chronic) Prostate ca (Chronic) Hospital Course and Treatment Consultations 09/11/17 09:16 Consult: Onc/Wound/anthropologist Routine Comment: Reason for Consult:: left leg wound Operations: - Summary of Care Provided: He is a 76 year old M who presented originally 09/05 after tripping in his barn and cutting his leg on a grain shovel. Shovel was old, had not been used in several years. It caused a large skin avulsion to L hickman. He activated the Called EMS and was taken to ED, his wound was sutured, he was given tetanus shotand sent home on Po Keflex. Over next few days, he developed increasing redness, pain clear/yellow drainage. He did came to the emergency room he was given IV Unasyn and then admitted to the hospitalist service was initiated on IV vancomycin and Zosyn. Infectious disease and general surgery were consulted and he underwent wide debridement . Wound vacuum device was later placed. His wound culture grew Citrobacter and bacillus , antibiotics changed to oral Augmentin and his Cipro. The patient will continue these antibiotics for 7 days. He was discharged home in a stable condition with home health care. Discharge Diet: No Restrictions Discharge Activity: Return to Normal Activity Home Medications: Medications to take at Discharge Albuterol Sulfate [Proventil Hfa] 2 puff IH BID 07/13/13 Azelastine HCl [Astelin] 2 spray NASAL BID 07/13/13 Fluticasone 0.05% [Flonase Nasal Remington] 2 spray NASAL BID 07/13/13 Montelukast [Singulair] 10 mg PO QHS 07/13/13 Sertraline HCl [Zoloft] 150 mg PO DAILY 07/13/13 Tiotropium Prospect [Spiriva 18 MCG] 1 puff INHALATION DAILY 07/13/13 Atorvastatin Calcium [Lipitor] 10 mg PO QHS 10/26/14 Lisinopril [Zestril] 20 mg PO DAILY 10/26/14 Ferrous Sulfate 325 mg PO BID 07/14/15 Multivitamin [Daily Multiple Vitamin] 1 each PO DAILY 07/14/15 Omeprazole [Prilosec] 20 mg PO DAILY 07/14/15 Polyethylene Glycol 3350 [Miralax] 17 gm PO DAILY PRN 07/14/15 Ipratropium [Atrovent] 0.5 mg INHALATION 4X/DAY PRN 09/03/16 Guaifenesin [Mucinex] 600 mg PO BID 01/12/17 Rivaroxaban [Xarelto] 20 mg PO DAILY 01/31/17 Fluticasone/Salmeterol [Advair Hfa 230-21 Mcg Inhaler] 2 puff INHALATION BID 06/22/17 Nystatin/Triamcin Cream [Mycolog] 1 applic TOPICAL BID PRN 06/22/17 Amox/Clavulanate Tablet [Augmentin Tablet] 875 mg PO BID #14 tab 09/16/17 Ciprofloxacin [Cipro] 500 mg PO BID #14 tab 09/16/17 Glucagon 1 mg IM .X1 PRN syringe 09/16/17 Hydrocodone Bitart/Apap 5-325 [Ina 5/325] 1 tab PO Q4H PRN PRN #20 tab 09/16/17 Lactobacillus Acidophilus [Acidophilus] 2 tab PO TID #30 tab 09/16/17 Leflunomide 10 mg PO DAILY tablet 09/16/17 Following Prescrptions Were Given to Patient: Hydrocodone Bitart/Apap 5-325 [Ina 5/325] 1 tab PO Q4H PRN PRN #20 tab PRN Reason: Severe Pain (6-02/25) Amox/Clavulanate Tablet [Augmentin Tablet] 875 mg PO BID #14 tab Ciprofloxacin [Cipro] 500 mg PO BID #14 tab Lactobacillus Acidophilus [Acidophilus] 2 tab PO TID #30 tab Primary Care Physician: Lambert Larios MD [Primary Care Provider] - In 1 Week Medical Necessity - Tobacco Use Smoking Status: Never smoker Meaningful Use Info Meaningful Use Diagnoses (Choose all that apply): None applicable Code Visit Inpatient E AND M: 78812 Disch Hosp 09/16/17 1753 <Electronically signed by Chapis Minor MD> Date Chapis Minor MD Cosigner Signature (if applicable): Date CC: Cahpis Minor MD; Lambert Larios MD Signed DISCHARGE INSTRUCTION Observed: 09/16/2017 Status: F Source: [place] 12:29 PM [facility] [place] REPOSITORY [facility] Medical Records Department [address] [place] [address] Instructions for Home/Discharge Instructions 09/16/17 1228 MR#: [id number] Acct: [id number] Name: CARISSA YIP Rep #: [id number] : 1940 76 From: Chapis Minor MD PCP: Lambert Larios MD Status: ADM IN - Discharge Diagnoses Current Active Problems: Current Active and Chronic Problems Cellulitis of left leg (Acute) Abscess of left leg (Acute) You will use the following diet at home:: Regular Discharge Activity: Return to Normal Activity Allergies/Adverse Reactions: Allergies indomethacin [From Indocin] Allergy (Verified 09/09/17 22:56) Itching indomethacin sodium [From Indocin] Allergy (Verified 09/09/17 22:56) Itching oxycodone HCl [From Percocet] Allergy (Verified 09/09/17 22:56) Itching Medications to take at Discharge Albuterol Sulfate [Proventil Hfa] 2 puff IH BID 07/13/13 Azelastine HCl [Astelin] 2 spray NASAL BID 07/13/13 Fluticasone 0.05% [Flonase Nasal Remington] 2 spray NASAL BID 07/13/13 Montelukast [Singulair] 10 mg PO QHS 07/13/13 Sertraline HCl [Zoloft] 150 mg PO DAILY 07/13/13 Tiotropium Prospect [Spiriva 18 MCG] 1 puff INHALATION DAILY 07/13/13 Atorvastatin Calcium [Lipitor] 10 mg PO QHS 10/26/14 Lisinopril [Zestril] 20 mg PO DAILY 10/26/14 Ferrous Sulfate 325 mg PO BID 07/14/15 Multivitamin [Daily Multiple Vitamin] 1 each PO DAILY 07/14/15 Omeprazole [Prilosec] 20 mg PO DAILY 07/14/15 Polyethylene Glycol 3350 [Miralax] 17 gm PO DAILY PRN 07/14/15 Ipratropium [Atrovent] 0.5 mg INHALATION 4X/DAY PRN 09/03/16 Guaifenesin [Mucinex] 600 mg PO BID 01/12/17 Rivaroxaban [Xarelto] 20 mg PO DAILY 01/31/17 Fluticasone/Salmeterol [Advair Hfa 230-21 Mcg Inhaler] 2 puff INHALATION BID 06/22/17 Nystatin/Triamcin Cream [Mycolog] 1 applic TOPICAL BID PRN 06/22/17 Amox/Clavulanate Tablet [Augmentin Tablet] 875 mg PO BID #14 tab 09/16/17 Ciprofloxacin [Cipro] 500 mg PO BID #14 tab 09/16/17 Glucagon 1 mg IM .X1 PRN syringe 09/16/17 Hydrocodone Bitart/Apap 5-325 [Ina 5/325] 1 tab PO Q4H PRN PRN #20 tab 09/16/17 Lactobacillus Acidophilus [Acidophilus] 2 tab PO TID #30 tab 09/16/17 Leflunomide 10 mg PO DAILY tablet 09/16/17 The following prescriptions were given: Hydrocodone Bitart/Apap 5-325 [Ina 5/325] 1 tab PO Q4H PRN PRN #20 tab PRN Reason: Severe Pain (-02/25) Amox/Clavulanate Tablet [Augmentin Tablet] 875 mg PO BID #14 tab Ciprofloxacin [Cipro] 500 mg PO BID #14 tab Lactobacillus Acidophilus [Acidophilus] 2 tab PO TID #30 tab Primary Care Physician: Lambert Larios MD [Primary Care Provider] - In 1 Week Proposed Discharge Date: 09/16/17 09/16/17 1229 <Electronically signed by Chapis Minor MD> Date Chapis Minor MD CC: Christy Hinds MD; Chet Mckenna MD; Lambert Larios MD BEDSIDE GLUCOSE Collected: 09/16/2017 Status: F Source: BRENDA 11:33 AM [facility] [place] REPOSITORY TYPE CODE TESTS RESULT OUT OF RANGE REFERENCE UNITS LAB L501.080 70-110 mg/dL Normal BEDSIDE GLU 93 Result Comment: MANAGEMENT OF PATIENT CARE PER NURSING PROTOCOL Performed By: #### L501.080 #### [facility] Point of Care [address] [place] [address] BEDSIDE GLUCOSE Collected: 09/16/2017 Status: F Source: BRENDA 6:41 AM [facility] [place] REPOSITORY TYPE CODE TESTS RESULT OUT OF REFERENCE UNITS RANGE LAB L501.080 70-110 mg/dL High BEDSIDE GLU 131 Result Comment: MANAGEMENT OF PATIENT CARE PER NURSING PROTOCOL Performed By: #### L501.080 #### [facility] Point of Care [address] [place] [address] BEDSIDE GLUCOSE Collected: 09/15/2017 Status: F Source: BRENDA 10:43 PM [facility] [place] REPOSITORY TYPE CODE TESTS RESULT OUT OF REFERENCE UNITS RANGE LAB L501.080 70-110 mg/dL High BEDSIDE GLU 148 Result Comment: MANAGEMENT OF PATIENT CARE PER NURSING PROTOCOL Performed By: #### L501.080 #### [facility] Point of Care [address] [place] [address] BEDSIDE GLUCOSE Collected: 09/15/2017 Status: F Source: BRENDA 4:48 PM [facility] [place] REPOSITORY TYPE CODE TESTS RESULT OUT OF REFERENCE UNITS RANGE LAB L501.080 70-110 mg/dL High BEDSIDE GLU 118 Result Comment: MANAGEMENT OF PATIENT CARE PER NURSING PROTOCOL Performed By: #### L501.080 #### [facility] Point of Care [address] [place] [address] BEDSIDE GLUCOSE Collected: 09/15/2017 Status: F Source: BRENDA 11:29 AM [facility] [place] REPOSITORY TYPE CODE TESTS RESULT OUT OF RANGE REFERENCE UNITS LAB L501.080 70-110 mg/dL Normal BEDSIDE GLU 105 Result Comment: MANAGEMENT OF PATIENT CARE PER NURSING PROTOCOL Performed By: #### L501.080 #### [facility] Point of Care [address] [place] [address] BEDSIDE GLUCOSE Collected: 09/15/2017 Status: F Source: BRENDA 6:18 AM [facility] [place] REPOSITORY TYPE CODE TESTS RESULT OUT OF REFERENCE UNITS RANGE LAB L501.080 70-110 mg/dL High BEDSIDE GLU 117 Result Comment: MANAGEMENT OF PATIENT CARE PER NURSING PROTOCOL Performed By: #### L501.080 #### [facility] Point of Care [address] [place] [address] BASIC METABOLIC Collected: 09/15/2017 Status: F Source: BRENDA PROFILE (BMP) 5:20 AM [facility] [place] REPOSITORY TYPE CODE TESTS RESULT OUT OF RANGE REFERENCE UNITS LAB L501.0100 74-106 mg/dL High GLU 117 Result Comment: Fasting Glucose result from 100 to 125 mg/dL suggests IMPAIRED HOMEOSTASIS per A.D.A. criteria. Please note revised GLUCOSE reference range effective 2017. LAB L501.1000 7-18 mg/dL Normal BUN 12 LAB L501.1100 0.70-1.30 mg/dL Normal CREAT,SERUM 1.04 Result Comment: The validity of the calculated GFR AND GFRAA in patients over 70 years has not been determined. Clinical correlation is essential. LAB L501.1110 >60 mL/min Normal EST GFR 73 Result Comment: Non- GFR Calc LAB L501.1115 >60 mL/min Normal EST GFR - AA 89 Result Comment: GFR Calc LAB L501.1255 ml/min Normal Estimated CRCL 49.02 LAB L501.1300 10-20 RATIO Normal BUN/CRE 11.5 LAB L501.2200 8.5-10 mg/dL Normal .1 CA 8.8 LAB L501.5300 136-14 mmol/L Normal 5 NA 137 LAB L501.5600 3.5-5. mmol/L Normal 1 K 4.4 LAB L501.5900 98-107 mmol/L Normal CL 105 LAB L501.6100 21.0-3 mmol/L Normal 2.0 CO2 26.0 LAB L501.6200 5-15 Normal GAP 6 Performed By: #### L500.2500, L501.5200 #### [facility] [address] [place], [place], [address] MAGNESIUM Collected: 09/15/2017 Status: F Source: [place] 5:20 AM [facility] REPOSITORY TYPE CODE TESTS RESULT OUT OF RANGE REFERENCE UNITS LAB L501.5200 1.6-2.6 mg/dL Normal MG 2.0 Performed By: #### L500.2500, L501.5200 #### [facility] [address] [place], [address] CBC-COMPLETE BLOOD CNT Collected: 09/15/2017 Status: F Source: [place] NO DIFF 5:20 AM [facility] REPOSITORY TYPE CODE TESTS RESULT OUT OF RANGE REFERENCE UNITS LAB L100.1000 4.4-11.0 K/mm3 Normal WBC 5.9 LAB L100.1200 4.6-6.2 M/mm3 Low RBC 3.31 LAB L100.1300 13.0-16.5 g/dl Low HGB 9.3 LAB L100.1400 40-54 % Low HCT 29.1 LAB L100.1500 80-94 fL Normal MCV 87.9 LAB L100.1600 27.0-32.0 pg Normal MCH 28.1 LAB L100.1700 32-36 g/gl Normal MCHC 32.0 LAB L100.1810 11.6-14.6 % High RDW CV 15.5 LAB L100.1820 35.1-43.9 fl High RDW SD 49.8 LAB L100.1900 150-450 K/mm3 Normal PLT 311 LAB L100.2000 6.2-12.0 fl Normal MPV 9.5 Performed By: #### L100.0500 #### [facility] [address] [place], [address] BEDSIDE GLUCOSE Collected: 09/14/2017 Status: F Source: BRENDA 9:12 PM [facility] [place] REPOSITORY TYPE CODE TESTS RESULT OUT OF REFERENCE UNITS RANGE LAB L501.080 70-110 mg/dL High BEDSIDE GLU 111 Result Comment: MANAGEMENT OF PATIENT CARE PER NURSING PROTOCOL Performed By: #### L501.080 #### [facility] Point of Care [address] [place] [address] BEDSIDE GLUCOSE Collected: 09/14/2017 Status: F Source: BRENDA 6:11 PM [facility] [place] REPOSITORY TYPE CODE TESTS RESULT OUT OF REFERENCE UNITS RANGE LAB L501.080 70-110 mg/dL High BEDSIDE GLU 148 Result Comment: MANAGEMENT OF PATIENT CARE PER NURSING PROTOCOL Performed By: #### L501.080 #### [facility] Point of Care [address] [place] [address] BEDSIDE GLUCOSE Collected: 09/14/2017 Status: F Source: BRENDA 11:44 AM [facility] [place] REPOSITORY TYPE CODE TESTS RESULT OUT OF REFERENCE UNITS RANGE LAB L501.080 70-110 mg/dL High BEDSIDE GLU 116 Result Comment: MANAGEMENT OF PATIENT CARE PER NURSING PROTOCOL Performed By: #### L501.080 #### [facility] Point of Care [address] [place] [address] CBC-COMPLETE BLOOD CNT Collected: 09/14/2017 Status: F Source: BRENDA NO DIFF 8:08 AM [facility] [place] REPOSITORY TYPE CODE TESTS RESULT OUT OF RANGE REFERENCE UNITS LAB L100.1000 4.4-11.0 K/mm3 Normal WBC 5.9 LAB L100.1200 4.6-6.2 M/mm3 Low RBC 3.18 LAB L100.1300 13.0-16.5 g/dl Low HGB 9.1 LAB L100.1400 40-54 % Low HCT 28.3 LAB L100.1500 80-94 fL Normal MCV 89.0 LAB L100.1600 27.0-32.0 pg Normal MCH 28.6 LAB L100.1700 32-36 g/gl Normal MCHC 32.2 LAB L100.1810 11.6-14.6 % High RDW CV 15.0 LAB L100.1820 35.1-43.9 fl High RDW SD 47.5 LAB L100.1900 150-450 K/mm3 Normal PLT 287 LAB L100.2000 6.2-12.0 fl Normal MPV 9.3 Performed By: #### L100.0500 #### [facility] [address] [place], [address] BASIC METABOLIC Collected: 09/14/2017 Status: F Source: [place] PROFILE (BMP) 8:08 AM [facility] [place] REPOSITORY TYPE CODE TESTS RESULT OUT OF RANGE REFERENCE UNITS LAB L501.0100 74-106 mg/dL High GLU 139 Result Comment: Fasting Glucose result greater than or equal to 126 mg/dL suggests DIABETES MELLITUS per A.D.A. criteria. Please note revised GLUCOSE reference range effective 2017. LAB L501.1000 7-18 mg/dL Normal BUN 11 LAB L501.1100 0.70-1.30 mg/dL Normal CREAT,SERUM 0.99 Result Comment: The validity of the calculated GFR AND GFRAA in patients over 70 years has not been determined. Clinical correlation is essential. LAB L501.1110 >60 mL/min Normal EST GFR 78 Result Comment: Non- GFR Calc LAB L501.1115 >60 mL/min Normal EST GFR - AA 94 Result Comment: GFR Calc LAB L501.1255 ml/min Normal Estimated CRCL 51.49 LAB L501.1300 10-20 RATIO Normal BUN/CRE 11.1 LAB L501.2200 8.5-10 mg/dL Normal .1 CA 8.7 LAB L501.5300 136-14 mmol/L Low 5 NA 135 LAB L501.5600 3.5-5. mmol/L Normal 1 K 4.2 LAB L501.5900 98-107 mmol/L Normal CL 105 LAB L501.6100 21.0-3 mmol/L Normal 2.0 CO2 23.0 LAB L501.6200 5-15 Normal GAP 7 Performed By: #### L500.2500, L501.5200 #### [facility] [address] [place], [address] MAGNESIUM Collected: 09/14/2017 Status: F Source: BRENDA 8:08 AM [facility] REPOSITORY TYPE CODE TESTS RESULT OUT OF RANGE REFERENCE UNITS LAB L501.5200 1.6-2.6 mg/dL Low MG 1.5 Performed By: #### L500.2500, L501.5200 #### [facility] [address] [facility] [address] BEDSIDE GLUCOSE Collected: 09/14/2017 Status: F Source: BRENDA 7:15 AM [facility] REPOSITORY TYPE CODE TESTS RESULT OUT OF RANGE REFERENCE UNITS LAB L501.080 70-110 mg/dL Normal BEDSIDE GLU 98 Result Comment: MANAGEMENT OF PATIENT CARE PER NURSING PROTOCOL Performed By: #### L501.080 #### [facility] Point of Care [address] [place] [address] BEDSIDE GLUCOSE Collected: 09/13/2017 Status: F Source: BRENDA 9:49 PM [facility] REPOSITORY TYPE CODE TESTS RESULT OUT OF RANGE REFERENCE UNITS LAB L501.080 70-110 mg/dL Normal BEDSIDE GLU 101 Result Comment: MANAGEMENT OF PATIENT CARE PER NURSING PROTOCOL Performed By: #### L501.080 #### [facility] Point of Care [address] [place] [address] BEDSIDE GLUCOSE Collected: 09/13/2017 Status: F Source: BRENDA 3:54 PM [facility] REPOSITORY TYPE CODE TESTS RESULT OUT OF REFERENCE UNITS RANGE LAB L501.080 70-110 mg/dL High BEDSIDE GLU 142 Result Comment: MANAGEMENT OF PATIENT CARE PER NURSING PROTOCOL Performed By: #### L501.080 #### [facility] Point of Care [address] [place] [address] BEDSIDE GLUCOSE Collected: 09/13/2017 Status: F Source: BRENDA 12:14 PM [facility] REPOSITORY TYPE CODE TESTS RESULT OUT OF REFERENCE UNITS RANGE LAB L501.080 70-110 mg/dL High BEDSIDE GLU 132 Result Comment: MANAGEMENT OF PATIENT CARE PER NURSING PROTOCOL Performed By: #### L501.080 #### [facility] Point of Care [address] [place] [address] BEDSIDE GLUCOSE Collected: 09/13/2017 Status: F Source: BRENDA 6:33 AM [facility] REPOSITORY TYPE CODE TESTS RESULT OUT OF RANGE REFERENCE UNITS LAB L501.080 70-110 mg/dL Normal BEDSIDE GLU 100 Result Comment: MANAGEMENT OF PATIENT CARE PER NURSING PROTOCOL Performed By: #### L501.080 #### [facility] Point of Care [address] [place] [address] BEDSIDE GLUCOSE Collected: 09/12/2017 Status: F Source: BRENDA 9:46 PM [facility] REPOSITORY TYPE CODE TESTS RESULT OUT OF REFERENCE UNITS RANGE LAB L501.080 70-110 mg/dL High BEDSIDE GLU 129 Result Comment: MANAGEMENT OF PATIENT CARE PER NURSING PROTOCOL Performed By: #### L501.080 #### [facility] Point of Care [address] [place] [address] BEDSIDE GLUCOSE Collected: 09/12/2017 Status: F Source: BRENDA 4:29 PM [facility] REPOSITORY TYPE CODE TESTS RESULT OUT OF RANGE REFERENCE UNITS LAB L501.080 70-110 mg/dL Normal BEDSIDE GLU 104 Result Comment: MANAGEMENT OF PATIENT CARE PER NURSING PROTOCOL Performed By: #### L501.080 #### [facility] Point of Care [address] [place] [address] OPERATIVE REPORT Observed: 09/12/2017 Status: F Source: BRENDA 12:49 PM [facility] REPOSITORY [facility] Medical Records Department [address] [address] Operative Report 09/12/17 1241 MR#: [id number] Acct: [id number] Name: CARISSA YIP Rep #: [id number] : 1940 76 From: Homero Chin MD PCP: Lambert Larios MD Status: ADM IN Y Location: MS3 [id number] Problem List (1) Abscess of left leg Status: Acute Report of Operation Date of Procedure: 09/12/17 Pre-Operative Diagnosis: Infection and cellulitis and abscess of left lower extremity Post-Operative Diagnosis: Skin necrosis with wide debridement Surgery/Procedure Performed:: Incision and wide debridement of necrotic tissue in the left lower extremity. Wound measuring 25 x 10 cm, 1-2 cm depth Specimen's removed: Necrotic tissue sent for culture Estimated Blood Loss (mL): 150 Description of Procedure: The patient was brought back to the operating room. MAC anesthesia was induced. The left lower extremity was prepped with Betadine and elevated. After the left lower extremity was draped all of the prior sutures were removed. The necrotic flap was opened back up. The necrotic areas of the skin flap were sharply excised. These areas were trimmed back to where there was good bleeding. The necrotic tissue was sent for culture. Next the fascia was inspected and appeared to be viable. The area under the flap was pulse lavaged. Hemostasis was obtained with electrocautery. A Betadine soaked gauze was placed in the flap and ABDs were placed over the wound. The wound was then dressed with a Kerlix wrap as well as an Isaak wrap extending from the knee all the way to the toes. The patient was taken to PACU in stable condition and tolerated the procedure well. 09/12/17 1249 <Electronically signed by Homero Chin MD> Date Homero Chin MD CC: Homero Chin MD; Chet Mckenna MD; Lambert Larios MD Signed BEDSIDE GLUCOSE Collected: 09/12/2017 Status: F Source: BRENDA 11:12 AM [facility] REPOSITORY TYPE CODE TESTS RESULT OUT OF RANGE REFERENCE UNITS LAB L501.080 70-110 mg/dL Normal BEDSIDE GLU 97 Result Comment: MANAGEMENT OF PATIENT CARE PER NURSING PROTOCOL Performed By: #### L501.080 #### [facility] Point of Care [address] [facility] [address] [place], [place] [id number] BEDSIDE GLUCOSE Collected: 09/12/2017 Status: F Source: KINSTON 6:34 AM [facility] REPOSITORY TYPE CODE TESTS RESULT OUT OF RANGE REFERENCE UNITS LAB L501.080 70-110 mg/dL Normal BEDSIDE GLU 96 Result Comment: MANAGEMENT OF PATIENT CARE PER NURSING PROTOCOL Performed By: #### L501.080 #### [facility] Point of Care [address] [place] [address] PROTHROMBIN TIME W/INR Collected: 09/12/2017 Status: F Source: KINSTON 5:30 AM [facility] REPOSITORY TYPE CODE TESTS RESULT OUT OF RANGE REFERENCE UNITS LAB L300.4150 11.7-14.9 SECONDS Normal PROTIME 14.4 LAB L300.4200 Normal INR 1.1 Performed By: #### L300.3900, L300.4310 #### [facility] [address] [place], [address] PARTIAL THROMBOPLAST Collected: 09/12/2017 Status: F Source: KINSTON TIME 5:30 AM [facility] REPOSITORY TYPE CODE TESTS RESULT OUT OF REFERENCE UNITS RANGE LAB L300.4310 24.1-36.2 Seconds High PTT 41.1 Performed By: #### L300.3900, L300.4310 #### [facility] [address] [facility] [place], [address] CBC W/DIFF, AUTOMATED Collected: 09/12/2017 Status: F Source: KINSTON 5:30 AM [facility] REPOSITORY TYPE CODE TESTS RESULT OUT OF RANGE REFERENCE UNITS LAB L100.1000 4.4-11.0 K/mm3 Normal WBC 6.1 LAB L100.1200 4.6-6.2 M/mm3 Low RBC 3.38 LAB L100.1300 13.0-16.5 g/dl Low HGB 9.4 LAB L100.1400 40-54 % Low HCT 30.0 LAB L100.1500 80-94 fL Normal MCV 88.8 LAB L100.1600 27.0-32.0 pg Normal MCH 27.8 LAB L100.1700 32-36 g/gl Low MCHC 31.3 LAB L100.1810 11.6-14.6 % High RDW CV 15.2 LAB L100.1820 35.1-43.9 fl High RDW SD 49.6 LAB L100.1900 150-450 K/mm3 Normal PLT 219 LAB L100.2000 6.2-12.0 fl Normal MPV 9.5 LAB L100.2100 47-70 % High NEUT% 71.4 LAB L100.2200 19-41 % Low LY% 12.1 LAB L100.2300 0-10 % High MONO% 11.5 LAB L100.2400 0-5 % Normal EO% 3.0 LAB L100.2500 0-1 % Normal BASO% 0.2 LAB L100.2550 0.0-0.9 % High IM GRAN % 1.800 Result Comment: IG% - Immature Granulocytes (promyelocytes, myelocytes and metamyelocytes) > 1% indicates that a LEFT SHIFT is Present. LAB L100.2620 2.0-7.7 X10 3/uL Normal Absolute Neut 4.4 LAB L100.2720 0.83-4.51 X10 3/ul Low Absolute Lymph 0.74 Performed By: #### L100.0100 #### [facility] [address] [place], [place], [id number] BASIC METABOLIC Collected: 09/12/2017 Status: F Source: K[place] PROFILE (BMP) 5:30 AM [facility] REPOSITORY TYPE CODE TESTS RESULT OUT OF RANGE REFERENCE UNITS LAB L501.0100 74-106 mg/dL Normal GLU 99 Result Comment: Please note revised GLUCOSE reference range effective 2017. LAB L501.1000 7-18 mg/dL Normal BUN 15 LAB L501.1100 0.70-1.30 mg/dL Normal CREAT,SERUM 0.98 Result Comment: The validity of the calculated GFR AND GFRAA in patients over 70 years has not been determined. Clinical correlation is essential. LAB L501.1110 >60 mL/min Normal EST GFR 79 Result Comment: Non- GFR Calc LAB L501.1115 >60 mL/min Normal EST GFR - AA 95 Result Comment: GFR Calc LAB L501.1255 ml/min Normal Estimated CRCL 52.02 LAB L501.1300 10-20 RATIO Normal BUN/CRE 15.4 LAB L501.2200 8.5-10 mg/dL Normal .1 CA 8.8 LAB L501.5300 136-14 mmol/L Normal 5 NA 140 LAB L501.5600 3.5-5. mmol/L Normal 1 K 4.8 LAB L501.5900 98-107 mmol/L High CL 109 LAB L501.6100 21.0-3 mmol/L Normal 2.0 CO2 23.0 LAB L501.6200 5-15 Normal GAP 8 Performed By: #### L500.2500 #### [facility] [address] [place], [address] HEMOGLOBIN A1C Collected: 09/12/2017 Status: F Source: KINSTON 5:30 AM [facility] REPOSITORY TYPE CODE TESTS RESULT OUT OF RANGE REFERENCE UNITS LAB L501.9985 4.2-6.3 % High HGB A1C 7.7 Performed By: #### L501.9985 #### [facility] [address] [place], [address] Observed: 09/12/2017 Status: F Source: K[place]ON CULTURE, DEEP WOUND 12:00 AM [facility] REPOSITORY Order Date: 12/18/16 Comments: WOUND TISSUE LEFT LOWER LEG Gram Stain Gram Stain Very Rare Gram positive cocci 1+ White Blood Cells 3+ Red Blood Cells Wound Culture ORGANISM 1: Citrobacter freundii Amount Growth 2+ ORGANISM 2: Enterococcus faecalis Amount Growth Rare Citrobacter freundii: REACTION Amoxacillin/Clavulanic Acid $ 4 R Cefazolin $ >=64 R Cefepime $ <=1 S Ceftriaxone $ <=1 S Ciprofloxacin $ <=0.25 S Ertapenim $$$ <=0.5 S Gentamicin $ <=1 S Imipenem *NF <=0.25 S Levofloxacin $ 0.5 S Tobramycin $ <=1 S Trimethoprim/Sulfametho $ <=20 S (NF) indicates non-formulary drug at [facility]. Approval by Infectious Disease Specialist required before non-formulary drugs may be ordered and/or dispensed. Enterococcus faecalis: REACTION Ampicillin $ <=2 S Benzylpenicillin NF 2 S Gentamicin SYN-S S Linezolid $$$$ 2 S Tigecycline $$$$ <=0.12 S Streptomycin $ SYN-S S Vancomycin $ 1 S (NF) indicates non-formulary drug at [facility]. Approval by Infectious Disease Specialist required before non-formulary drugs may be ordered and/or dispensed. * CLSI guidelines does not recommend testing of cephalosporins. This interpretation is deduced from Beta-lactam/penicillin results. Cult, Anaerobic No anaerobic bacteria isolated. Performed By: #### M100.1500 #### [facility] [address] [place], [address] AFB Observed: 09/12/2017 Status: F Source: BRENDA CULT/SMEAR [id number] 12:00 AM [facility] REPOSITORY Comments: WOUND TISSUE LEFT LOWER LEG Is this test to exclude patient from TB Isolation? N AFB Smear/Fluor TESTING PERFORMED AT [facility]. ORIGINAL REPORT ON FILE IN LAB CONTAINS ADDITIONAL TEST SITE INFORMATION. Smear, Acid Fast Tissue Grinding Smear: Negative [facility]B Cult [facility] ORIGINAL REPORT ON FILE IN LAB CONTAINS ADDITIONAL TEST SITE INFORMATION. Culture, Acid Fast NO ACID-FAST BACILLI ISOLATED AFTER 6 WEEKS. Performed By: #### M100.3880, M6Carol.0 #### [facility] [address] [place], [address] Observed: 09/12/2017 Status: F Source: BRENDA CULTURE, FUNGUS W/ 12:00 AM [facility] [id number] REPOSITORY Comments: WOUND TISSUE LEFT LOWER LEG Is this test to exclude patient from TB Isolation? N Cu,[id number] TESTING PERFORMED AT [facility]. ORIGINAL REPORT ON FILE IN LAB CONTAINS ADDITIONAL TEST SITE INFORMATION. CUF No yeast or mold isolated after 4 weeks. Culture, Fungus No Yeast or Mold isolated at [address] [facility]. ORIGINAL REPORT ON FILE IN LAB CONTAINS ADDITIONAL TEST SITE INFORMATION. Fungus Stain No yeast or mold observed. Performed By: #### M100.3880, M6.0 #### [facility] [address] [place], [address] BEDSIDE GLUCOSE Collected: 09/11/2017 Status: F Source: BRENDA 11:23 PM [facility] REPOSITORY TYPE CODE TESTS RESULT OUT OF REFERENCE UNITS RANGE LAB L501.080 70-110 mg/dL High BEDSIDE GLU 119 Result Comment: MANAGEMENT OF PATIENT CARE PER NURSING PROTOCOL Performed By: #### L501.080 #### [facility] Point of Care [address] [place] [address] CONSULTATION Observed: 09/11/2017 Status: F Source: KINSTON 7:00 PM [facility] REPOSITORY [facility] Medical Records Department [address] [place] [address] Consultation 09/11/17 1855 MR#: [id number] Acct: [id number] Name: CARISSA YIP Rep #: [id number] : 1940 76 From: Homero Chin MD PCP: Lambert Larios MD Status: ADM IN Y [id number] Problem List (1) Abscess of left leg Status: Acute Reason for Consult Date of Consultation: 09/11/17 History of Present Illness: The patient is a 76 year old M who had a left lower extremity injury several days ago. This was sutured up in the emergency room he was sent home. He returned to the emergency room when this started draining purulent material. He was admitted and ID has been giving him IV antibiotics. He reports no fevers or chills. He says the sensation in his leg is good and there is good movement. Past Medical History Past Medical History (Chronic Problems): Chronic Problems Iron deficiency anemia (Chronic) Pulmonary nodule (Chronic) HLD (hyperlipidemia) (Chronic) Diverticulosis (Chronic) Asthma (Chronic) Hypertension (Chronic) Avulsion of skin (Chronic) Avulsion of skin of hand (Chronic) Obesity (Chronic) Osteoarthritis (Chronic) Penetrating injury right leg (Chronic) Pain in right leg (Chronic) Right leg swelling (Chronic) History of prostate cancer (Chronic) Allergic rhinitis (Chronic) Rheumatoid arthritis (Chronic) Pleural plaque (Chronic) Macular degeneration (Chronic) GERD (gastroesophageal reflux disease) (Chronic) Prostate ca (Chronic) Allergies indomethacin [From Indocin] Allergy (Verified 09/09/17 22:56) Itching indomethacin sodium [From Indocin] Allergy (Verified 09/09/17 22:56) Itching oxycodone HCl [From Percocet] Allergy (Verified 09/09/17 22:56) Itching Home Medications: Ambulatory Orders Medication Instructions Recorded Surgical History: - - Umbilical hernia repair, appendectomy, bilateral carpal tunnel surgery, Prostatectomy, Cataract surgery, L lens implant, L knee surgery followed by LTKR, L shoulder surgery, left total hip replacement. Smoking Status: Never smoker - *Family History Sibling History Items: Diabetes, Renal Disease, - - Patient's father at the age of 76 with history of colon cancer myocardial infarction. Patient's mother at age of 86 with a history of breast cancer. Maternal History Items: Cancer Paternal History Items: Cancer Review of Systems Constitutional: Denies: Anorexia, Chills, Fever HEENT: Denies: Difficulty Swallowing Cardiovascular: Denies: Chest Pain Respiratory: Denies: Cough, Shortness of Breath Gastrointestinal: Denies: Abdominal Pain Musculoskeletal: Reports: Leg Pain Skin: Denies: Dryness, Jaundice Psychiatric: Denies: Anxiety, Depression Hematologic/ Lymphatic: Denies: Anemia Patient Problems: Active and Suspected Problems Cellulitis of left leg (Acute) Abscess of left leg (Acute) - Physical Exam General: Alert, Oriented x3, Cooperative Oral: Moist Mucosa Neck: No JVD Lungs: Normal air movement Cardiovascular: Regular rate, Regular Rhythm Abdomen: Soft, Non Tender, Non-Distended Extremities: - - Left lower extremity has an incision which is sutured. There are several areas of necrosis and there is purulent drainage. Toes are warm with good movement. Skin: No rashes Musculoskeletal: No Muscle Wasting Neurological: Cranial nerves II-XII grossly intact Psych/Mental Status: Normal Affect, Appropriate Vital Signs Temp Pulse Resp BP Pulse Ox 97.5 F L 109 H 16 142/73 H 97 09/11/17 14:05 09/11/17 14:05 09/11/17 14:05 09/11/17 14:05 09/11/17 14:05 Oxygen Delivery Method Room Air Weight: 214 lb 11.684 oz Body Mass Index (BMI) 36.3 Intake and Output for Last 24 Hours Intake Total 1750 / 1750 4770 / 4770 Output Total 425 / 425 Balance 1325 / 1325 4770 / 4770 Microbiology Past 72 Hours 09/10/17 10:10 Gram Stain - Final Wound - Leg, Left Wound Culture - Preliminary Laboratory Tests Past 24 Hrs Sodium 141 Potassium 4.8 Chloride 110 H Carbon Dioxide 24.0 Anion Gap 7 BUN 19 H Creatinine 1.05 Estim Creat Clear Calc 48.55 POC Glucose POC Glucose 142 H 117 H 98 POC Glucose 122 H Clinical Impression(s) from Imaging Studies Tibia/Fibula X-Ray 09/10/17 02:26 IMPRESSION: Soft tissue changes as above. There is no radiopaque foreign body. There is no acute displaced fracture or dislocation. Other nonacute findings as outlined above. Electronically Signed: Cindi Bernal MD at 6:06 EDT , Service support , Assessment/Plan Active and Suspected Problems Cellulitis of left leg (Acute) Abscess of left leg (Acute) 76-year-old male with left lower extremity infection 1. The left lower extremity has a clear area of necrosis and infection in the prior wound. This needs surgical debridement. Since he has eaten today I performed a bedside debridement to open the wound and I will do a formal debridement tomorrow in the operating room. 2. I discussed the risks of bleeding and infection with the patient especially since he is still on Xarelto. He agreed to both debridements. 3. Patient may need tonight and be n.p.o. after midnight. Please hold Xarelto tonight and tomorrow morning. Homero Chin MD Pager: [facility] [address] [place] [address], [address] [place] [address] Office: Procedure documentation: The left lower extremity was unwrapped and several of the sutures were removed with scissors. Next the lower area of necrosis was sharply incised and the area of infection was packed with wet-to-dry dressing. There appeared to be infection running posteriorly in the skin flap. The muscle appeared viable and the fascia appeared uninfected. The lower extremity was then wrapped with Kerlex and Isaak bandage. The patient tolerated the procedure well. 09/11/17 1900 <Electronically signed by Homero Chin MD> Date [facility]Hmero Chin [facility] Signature (if applicable): Date CC: Chet Mckenna MD; Lambert Larios MD Signed TYPE AND SCREEN Collected: 09/11/2017 Status: F Source: BRENDA 6:29 PM [facility] REPOSITORY Order Comment: Reason for Type AND Screen/Red Cells: SURGERY TYPE CODE TESTS RESULT OUT OF RANGE REFERENCE UNITS LAB B10.0800 A Normal BLOOD TYPE GEL POSITIVE LAB B100.4000 Normal Antibody NEGATIVE Screen Performed By: #### B101.7450 #### [facility] [address] [facility] [address] BEDSIDE GLUCOSE Collected: 09/11/2017 Status: F Source: BRENDA 4:14 PM [facility] REPOSITORY TYPE CODE TESTS RESULT OUT OF REFERENCE UNITS RANGE LAB L501.080 70-110 mg/dL High BEDSIDE GLU 142 Result Comment: MANAGEMENT OF PATIENT CARE PER NURSING PROTOCOL Performed By: #### L501.080 #### [facility] Point of Care [address] [place] [address] BEDSIDE GLUCOSE Collected: 09/11/2017 Status: F Source: BRENDA 11:28 AM [facility] REPOSITORY TYPE CODE TESTS RESULT OUT OF REFERENCE UNITS RANGE LAB L501.080 70-110 mg/dL High BEDSIDE GLU 117 Result Comment: MANAGEMENT OF PATIENT CARE PER NURSING PROTOCOL Performed By: #### L501.080 #### [facility] Point of Care [address] [place] [address] EMERGENCY DEPARTMENT Observed: 09/11/2017 Status: F Source: BRENDA SUMMARY 8:00 AM [facility] REPOSITORY [facility] Medical Records Department [address] [address] [address] Emergency Department Summary 09/06/17 0032 MR#: [id number] Acct: [id number] Name: CARISSA YIP Rep #: [id number] : 1940 76 From: Prasanth Meier DO PCP: Lambert Larios MD Status: DEP ER - ER Visit Summary Date of Service: 09/06/17 Chief Complaint: Leg laceration History of Present Illness: The patient is a 76 M who was outside when he sustained a mechanical fall falling on a steel rake. He caused laceration to his left lateral leg. He is on Xarelto for pulmonary embolism. EMS applied pressure control bleeding and brought him to the emergency room. Tetanus is unknown. Physical Examination: Afebrile slightly tachycardic at 108. He is normotensive. Left lateral leg shows an approximately 29 cm laceration through subcutaneous tissue. It does not appear to violate the muscle fascia. There is no exposed bone. There is no active bleeding. Patient has strong dorsalis pedis and posterior tibial pulses. Neurovascularly intact distally. He does have lymphedema slightly pitting. Test Results: Tib-fib films were negative for fracture. Basic labs negative. Emergency Department Course and Treatment: Patient received IV fluids and Ancef. His tetanus was updated. Plastic surgery is unavailable at this time. We irrigated the wound with approximately 1000 cc of sterile saline. The wound was locally anesthetized using small amount of 1% lidocaine. Part of the wound was under significant tension and horizontal mattresses were applied to help remove the tension. Then simple interrupted sutures were then used to close the wound. All the wound was able to be approximated except for about 1-2 to meters on the middle of the wound. The wound was dressed. To limit movement of the skin in the tissue he was placed in a boot orthosis. This was done because as the patient continuously move his foot up and down he would cause tearing of the thin skin around the sutures. He will be placed on Keflex. He has been seen at the wound clinic before and have advised him to follow-up there. Impression: 1. 29 cm left leg laceration with repair 2. Tetanus update This note was generated with [employer] dictation software. It may contain incorrect words, spelling, and punctuation that were not noted in review of the chart prior to signing ED Disposition - Plan for ED Patient: Chief Complaint: Trauma Referrals: Lambert Larios MD [Primary Care Provider] - What to do if you have Problems For any increased pain, shortness of breath, bleeding, nausea or vomiting, chest pain, or any unexpected problems, contact your Primary Care Provider. Call [facility] ([phone]) or report to the closest Emergency Room. Call 911 if necessary. 09/11/17 0800 <Electronically signed by Prasanth Meier DO> Date Prasanth Meier DO Cosigner Signature (If Indicated): Date CC: Lambert Larios MD BEDSIDE GLUCOSE Collected: 09/11/2017 Status: F Source: BRENDA 7:03 AM [facility] [place] REPOSITORY TYPE CODE TESTS RESULT OUT OF RANGE REFERENCE UNITS LAB L501.080 70-110 mg/dL Normal BEDSIDE GLU 98 Result Comment: MANAGEMENT OF PATIENT CARE PER NURSING PROTOCOL Performed By: #### L501.080 #### [facility] [place] [address] BASIC METABOLIC Collected: 09/11/2017 Status: F Source: BRENDA PROFILE (BMP) 6:05 AM [facility] REPOSITORY TYPE CODE TESTS RESULT OUT OF RANGE REFERENCE UNITS LAB L501.0100 74-106 mg/dL High GLU 114 Result Comment: Fasting Glucose result from 100 to 125 mg/dL suggests IMPAIRED HOMEOSTASIS per A.D.A. criteria. Please note revised GLUCOSE reference range effective 2017. LAB L501.1000 7-18 mg/dL High BUN 19 LAB L501.1100 0.70-1.30 mg/dL Normal CREAT,SERUM 1.05 Result Comment: The validity of the calculated GFR AND GFRAA in patients over 70 years has not been determined. Clinical correlation is essential. LAB L501.1110 >60 mL/min Normal EST GFR 72 Result Comment: Non- GFR Calc LAB L501.1115 >60 mL/min Normal EST GFR - AA 88 Result Comment: GFR Calc LAB L501.1255 ml/min Normal Estimated CRCL 48.55 LAB L501.1300 10-20 RATIO Normal BUN/CRE 18.1 LAB L501.2200 8.5-10 mg/dL Normal .1 CA 8.8 LAB L501.5300 136-14 mmol/L Normal 5 NA 141 LAB L501.5600 3.5-5. mmol/L Normal 1 K 4.8 LAB L501.5900 98-107 mmol/L High CL 110 LAB L501.6100 21.0-3 mmol/L Normal 2.0 CO2 24.0 LAB L501.6200 5-15 Normal GAP 7 Performed By: #### L500.2500 #### [facility] [address] [facility] [place], [address] BEDSIDE GLUCOSE Collected: 09/10/2017 Status: F Source: KINSTON 10:56 PM [facility] REPOSITORY TYPE CODE TESTS RESULT OUT OF REFERENCE UNITS RANGE LAB L501.080 70-110 mg/dL High BEDSIDE GLU 122 Result Comment: MANAGEMENT OF PATIENT CARE PER NURSING PROTOCOL Performed By: #### L501.080 #### [facility] Point of Care [address] [facility] [place] [address] BEDSIDE GLUCOSE Collected: 09/10/2017 Status: F Source: KINSTON 4:05 PM [facility] REPOSITORY TYPE CODE TESTS RESULT OUT OF REFERENCE UNITS RANGE LAB L501.080 70-110 mg/dL High BEDSIDE GLU 131 Result Comment: MANAGEMENT OF PATIENT CARE PER NURSING PROTOCOL Performed By: #### L501.080 #### [facility] Point of Care [address] [facility] [place] [address] CONSULTATION Observed: 09/10/2017 Status: F Source: KINSTON 11:59 AM [facility] REPOSITORY [facility] Medical Records Department [address] [address] Consultation 09/10/17 1152 MR#: [id number] Acct: [id number] Name: CARISSA YIP Rep #: [id number] : 1940 76 From: Chet Mckenna MD PCP: Lambert Larios MD Status: ADM IN Y Location: MS3 [id number] Problem List (1) Cellulitis of left leg Status: Acute Reason for Consult: leg infection Consulted by: Dr. Gandhi History of Present Illness: The patient is a 76 year old M who presented originally 09/05 after tripping in his barn and cutting his leg on a grain shovel. Shovel was old, had not been used in several years. It caused a large skin avulsion to L hickman. Called EMS, taken to ED, wound sutured, given tetanus shot, sent home on keflex. Over next few days, increased redness, mild pain, some clear/yellow drainage. No fever or chills. No n/v/d with abx. Came to ED, given unasyn, admitted on vanc/zosyn, leg about the same today, pain is 5/10. Full ROS performed and neg except as noted above. - Medical History Past Medical History (Chronic Problems): Chronic Problems Iron deficiency anemia (Chronic) Pulmonary nodule (Chronic) HLD (hyperlipidemia) (Chronic) Diverticulosis (Chronic) Asthma (Chronic) Hypertension (Chronic) Avulsion of skin (Chronic) Avulsion of skin of hand (Chronic) Obesity (Chronic) Osteoarthritis (Chronic) Penetrating injury right leg (Chronic) Pain in right leg (Chronic) Right leg swelling (Chronic) History of prostate cancer (Chronic) Allergic rhinitis (Chronic) Rheumatoid arthritis (Chronic) Pleural plaque (Chronic) Macular degeneration (Chronic) GERD (gastroesophageal reflux disease) (Chronic) Prostate ca (Chronic) Allergies/Adverse Reactions: Allergies indomethacin [From Indocin] Allergy (Verified 09/09/17 22:56) Itching indomethacin sodium [From Indocin] Allergy (Verified 09/09/17 22:56) Itching oxycodone HCl [From Percocet] Allergy (Verified 09/09/17 22:56) Itching Home Medications: Ambulatory Orders Medication Instructions Recorded - Social History SMOKING STATUS:: Never smoker Vital Signs Temp Pulse Resp BP Pulse Ox 98.0 F 87 18 126/59 H 99 09/10/17 08:24 09/10/17 08:24 09/10/17 08:36 09/10/17 08:24 09/10/17 08:36 Oxygen Delivery Method Room Air Weight: 97.4 kg Body Mass Index (BMI) 36.3 Laboratory Tests Past 24 Hrs Lactic Acid 0.8 S.aureus Protein A PCR Pending MRSA (PCR) Pending Pending - Other Studies Radiology: [] reviewed Other Studies: [] Route of nutrition/ use of supplements: [] Nutritional Intake: [] IV Site: [] León Catheter: [] - Physical Exam General: Alert, Oriented x3, Cooperative HEENT: Atraumatic, PERRLA, EOMI Neck: Supple, No Nodes Lungs: Clear to auscultation, Normal air movement Cardiovascular: Regular rate, Regular Rhythm, Murmur Abdomen: Bowel Sounds Present, Soft, Non Tender, Non-Distended Extremities: Edema - mild Skin: Incision - L hickman with surrounding erythema. No drainage seen, no warmth, minimal tenderness IV Site: Peripheral, without redness Musculoskeletal: No Tenderness to Palpation of Joints or Extremities Neurological: Cranial nerves II-XII grossly intact - Assessment/Plan Antibiotics: [] Assessment/Plan: [] Active and Suspected Problems Cellulitis of left leg (Acute) L hickman infected wound with surrounding cellulitis - cx pending. Low suspicion for underlying necrotizing fasciitis or osteo given no fever, normal wbc, and mild exam and symptoms. Will stop clinda. Cont vanc. Narrow zosyn to unasyn. Will follow, thank you. 09/10/17 1159 <Electronically signed by Chet Mckenna MD> Date Chet Mckenna MD Cosigner Signature (if applicable): Date CC: Chet Mckenna MD; Lambert Larios MD Signed BEDSIDE GLUCOSE Collected: 09/10/2017 Status: F Source: BRENDA 11:17 AM [facility] [place] REPOSITORY TYPE CODE TESTS RESULT OUT OF REFERENCE UNITS RANGE LAB L501.080 70-110 mg/dL High BEDSIDE GLU 137 Result Comment: MANAGEMENT OF PATIENT CARE PER NURSING PROTOCOL Performed By: #### L501.080 #### [facility] Point of Care [address] [place], [place] [address] MRSA WOUND DNA BY Collected: 09/10/2017 Status: F Source: BRENDA PCR 10:10 AM [facility] REPOSITORY TYPE CODE TESTS RESULT OUT OF RANGE REFERENCE UNITS LAB L8200.1100 Negative Normal MRSA Negative RESULT LAB L8200.1150 Negative Normal SA RESULT NEGATIVE Performed By: #### L8200.1075 #### [facility] [address] [place], [address] M R STAPH AUREUS Collected: 09/10/2017 Status: F Source: BRENDA DNA BY PCR 10:10 AM [facility] REPOSITORY TYPE CODE TESTS RESULT OUT OF RANGE REFERENCE UNITS LAB L8200.1100 Negative Normal MRSA Negative RESULT Performed By: #### L8200.1000 #### [facility] [address] [facility] [facility] [place], [address] Observed: 09/10/2017 Status: F Source: BRENDA CULTURE, DEEP WOUND 10:10 AM [facility] REPOSITORY Gram Stain Gram Stain 1+ Gram negative rods Rare Gram positive cocci No cells seen Wound Culture ORGANISM 1: Citrobacter freundii Amount Growth 3+ ORGANISM 2: Bacillus sp., not anthracis Amount Growth 3+ Citrobacter freundii: REACTION Amoxacillin/Clavulanic Acid $ 4 R Cefazolin $ >=64 R Cefepime $ <=1 S Ceftriaxone $ <=1 S Ciprofloxacin $ <=0.25 S Ertapenim $$$ <=0.5 S Gentamicin $ <=1 S Imipenem *NF <=0.25 S Levofloxacin $ 0.5 S Tobramycin $ <=1 S Trimethoprim/Sulfametho $ <=20 S (NF) indicates non-formulary drug at [facility]. Approval by Infectious Disease Specialist required before non-formulary drugs may be ordered and/or dispensed. Cult, Anaerobic No anaerobic bacteria isolated. Performed By: #### M100.1500 #### [facility] [address] [facility] [place], [address] BEDSIDE GLUCOSE Collected: 09/10/2017 Status: F Source: BRENDA 6:52 AM [facility] REPOSITORY TYPE CODE TESTS RESULT OUT OF REFERENCE UNITS RANGE LAB L501.080 70-110 mg/dL High BEDSIDE GLU 149 Result Comment: MANAGEMENT OF PATIENT CARE PER NURSING PROTOCOL Performed By: #### L501.080 #### [facility] Point of Care [address] [place] [address] LACTIC ACID Collected: 09/10/2017 Status: F Source: BRENDA 3:00 AM [facility] REPOSITORY Order Comment: Yes/No query for Sepsis Lactate Rule Y TYPE CODE TESTS RESULT OUT OF RANGE REFERENCE UNITS LAB L503.6005 0.4-2.0 mmol/L Normal LACTIC ACID 0.8 Performed By: #### L503.6005 #### [facility] [address] [place], [address] TIBIA AND FIBULA Observed: 09/10/2017 Status: F Source: KINSTON 2 VIEWS 2:26 AM [facility] REPOSITORY [facility] Imaging Services [address] [place] [address] Tibia AND Fibula 2 Views MR#: [id number] Acct: [id number] Name: CARISSA YIP Rep #: [id number] : 1940 76 From: Cindi Bernal MD PCP: Lambert Larios MD Status: ADM IN Study: Tibia AND Fibula 2 Views Date of Exam: 09/10/17 Exam# [id number] Ordering Dr: Neil Vargas MD STUDY: X-RAY - LEFT TIBIA AND FIBULA REASON FOR EXAM: Male, 76 years old. Large laceration x5 days ago, redness, possible infection. TECHNIQUE: 3 view(s) of the tibia and fibula were obtained. COMPARISON: 09/05/2017 FINDINGS: Status post total knee replacement. There is demineralization of osseous structures. There is atherosclerosis. There is arthrosis of the visualized proximal tibial fibular articulation. Soft tissue irregularity, lucency and edema involving the lateral greater than medial mid tibial level. There is no radiopaque foreign body. RAD/Tibia AND Fibula 2 Views IMPRESSION: Soft tissue changes as above. There is no radiopaque foreign body. There is no acute displaced fracture or dislocation. Other nonacute findings as outlined above. Electronically Signed: Cindi Bernal MD at 6:06 EDT , Service support , CC: Neil Vargas MD; Lambert Larios MD Orthotics Prosthetics Assistant: Signed HISTORY AND PHYSICAL Observed: 09/10/2017 Status: F Source: KINSTON EXAM 1:33 AM [facility] REPOSITORY [facility] Medical Records Department [address] [place] [address] History and Physical 09/10/17 0041 MR#: [id number] Acct: [id number] Name: CARISSA YIP Rep #: [id number] : 1940 76 From: Neil Vargas MD PCP: Lambert Larios MD Status: ADM IN Y Location: OR3 [id number] Problem List (1) Cellulitis of left leg Status: Acute (2) Avulsion of skin Status: Chronic (3) Avulsion of skin of hand Status: Chronic Qualifiers: Encounter type: subsequent encounter (4) Avulsion of skin of right lower leg Status: Acute Qualifiers: Encounter type: subsequent encounter (5) Open wound Status: Acute (6) Open wound of left lower leg Status: Acute Qualifiers: (7) Traumatic open wound of left lower leg Status: Acute (8) Allergic rhinitis Status: Chronic (9) Asthma Status: Chronic (10) Diverticulosis Status: Chronic (11) GERD (gastroesophageal reflux disease) Status: Chronic (12) HLD (hyperlipidemia) Status: Chronic (13) History of prostate cancer Status: Chronic (14) Hypertension Status: Chronic Qualifiers: Hypertension type: essential hypertension (15) Iron deficiency anemia Status: Chronic (16) Macular degeneration Status: Chronic (17) Obesity Status: Chronic Qualifiers: Obesity type: due to excess calories (18) Osteoarthritis Status: Chronic (19) Pain in right leg Status: Chronic (20) Penetrating injury right leg Status: Chronic (21) Pleural plaque Status: Chronic (22) Prostate ca Status: Chronic (23) Pulmonary nodule Status: Chronic (24) Rheumatoid arthritis Status: Chronic (25) Right leg swelling Status: Chronic (26) Abscess of right leg Status: Resolved History of Present Illness Date of Admission: 09/10/17 Chief Complaint: Left leg cellulitis The patient is a 76 year old M with history of PE on Xarelto since 2017, 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 Patient denies fever, nausea or vomiting. He was seen about 4 days ago with large left leg laceration wound which happened as he fell on the shovel accidentally after his right leg was caught. He was sent home on Keflex. His wound documented as 29 cm laceration through subcutaneous tissue with no exposed bone. He required about 24 sutures. X-ray at that time showed soft tissue injury with laceration but no involvement of bone. In the ER today, patient was given Unasyn in the ER. Initial blood work shows increase in creatinine from 1.35-1.67, BUN 38 but no leukocytosis. [] Past Medical History Past Medical History (Chronic Problems): Chronic Problems Iron deficiency anemia (Chronic) Pulmonary nodule (Chronic) HLD (hyperlipidemia) (Chronic) Diverticulosis (Chronic) Asthma (Chronic) Hypertension (Chronic) Avulsion of skin (Chronic) Avulsion of skin of hand (Chronic) Obesity (Chronic) Osteoarthritis (Chronic) Penetrating injury right leg (Chronic) Pain in right leg (Chronic) Right leg swelling (Chronic) History of prostate cancer (Chronic) Allergic rhinitis (Chronic) Rheumatoid arthritis (Chronic) Pleural plaque (Chronic) Macular degeneration (Chronic) GERD (gastroesophageal reflux disease) (Chronic) Prostate ca (Chronic) Allergies indomethacin [From Indocin] Allergy (Verified 09/09/17 22:56) Itching indomethacin sodium [From Indocin] Allergy (Verified 09/09/17 22:56) Itching oxycodone HCl [From Percocet] Allergy (Verified 09/09/17 22:56) Itching Home Medications: Ambulatory Orders Medication Instructions Recorded Albuterol Sulfate [Proventil Hfa] 2 puff IH BID 07/13/13 Surgical History: - - Umbilical hernia repair, appendectomy, bilateral carpal tunnel surgery, Prostatectomy, Cataract surgery, L lens implant, L knee surgery followed by LTKR, L shoulder surgery, left total hip replacement. Smoking Status: Never smoker - *Family History Sibling History Items: Diabetes, Renal Disease, - - Patient's father at the age of 76 with history of colon cancer myocardial infarction. Patient's mother at age of 86 with a history of breast cancer. Maternal History Items: Cancer Paternal History Items: Cancer Review of Systems Constitutional: Denies: Chills, Fever, Weight Change HEENT: Denies: Head Aches, Sinus Congestion, Sinus Drainage Cardiovascular: Denies: Chest Pain, Palpitations Respiratory: Denies: Cough, Shortness of breath at rest, Sputum production Gastrointestinal: Denies: Abdominal Pain, Nausea, Vomiting Genitourinary: Denies: Dysuria Musculoskeletal: Reports: Leg Pain, Muscle pain. Denies: Joint Pain, Joint Tenderness Skin: Reports: Wounds - Large wound as described. Denies: Rash Neurological: Denies: Numbness, Tingling, Focal weakness Psychiatric: Denies: Anxiety, Depression, Homicidal Ideations, Suicidal Ideations Hematologic/ Lymphatic: Reports: Easy Bruising. Denies: Easy Bleeding VTE Information - Inpt Only VTE Present on Admission: No VTE Mechan Device Prophylaxis: SCD's VTE Pharm Prophylaxis ordered?: Yes Patient Problems: Active and Suspected Problems Cellulitis of left leg (Acute) - Physical Exam General: Alert, Oriented x3, Cooperative HEENT: Atraumatic, PERRLA, EOMI, Normocephalic Neck: Supple, No JVD, Negative Carotid Bruits Lungs: Clear to auscultation, Normal air movement, No rhonchi, No wheeze, No rales Cardiovascular: Regular rate, Regular Rhythm, Normal S1, Normal S2, No murmurs Abdomen: Bowel Sounds Present, Soft, Non Tender, Non-Distended Extremities: Capillary Refill Less than 3 Seconds, Edema Skin: No rashes, No breakdown, - - Large wound, sutured in the left leg lateral aspect covered with dressing and Isaak wrap bandage applied in ER. Mucopurulent discharge with the small areas open Musculoskeletal: No Tenderness to Palpation of Joints or Extremities Neurological: Cranial nerves II-XII grossly intact Psych/Mental Status: Normal Affect, Appropriate Vital Signs Temp Pulse Resp BP Pulse Ox 97.9 F 72 16 124/62 H 97 09/09/17 22:53 09/10/17 00:34 09/10/17 00:34 09/10/17 00:34 09/10/17 00:34 Oxygen Delivery Method Room Air Weight: 212 lb Body Mass Index (BMI) 36.3 Laboratory Tests Past 24 Hrs WBC 5.5 RBC 3.27 L Hgb 9.5 L Hct 29.1 L MCV 89.0 MCH 29.1 MCHC 32.6 RDW 15.2 H Assessment/Plan Active and Suspected Problems Cellulitis of left leg (Acute) The patient is a 76 year old M with history of PE on Xarelto since 2017, 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 Patient denies fever, nausea or vomiting. He was seen about 4 days ago with large left leg laceration wound which happened as he fell on the shovel accidentally after his right leg was caught. He was sent home on Keflex. His wound documented as 29 cm laceration through subcutaneous tissue with no exposed bone. He required about 24 sutures. X-ray at that time showed soft tissue injury with laceration but no involvement of bone. In the ER today, patient was given Unasyn in the ER. Initial blood work shows increase in creatinine from 1.35-1.67, BUN 38 but no leukocytosis. [] 1. Large left leg cellulitis with possibility of deep fasciitis secondary to infected lacerated wound status post suture 4 days ago: Patient is being admitted in regular floor. On IV fluid normal saline. Started on IV Zosyn and clindamycin for broad-spectrum coverage of gram-negative anaerobes, and anaerobes. 1 dose of IV vancomycin ordered until MRSA is ruled out. MRSA nasal screen. Wound culture. Blood cultures 2 ordered. ID and infectious disease consult. Repeat left leg x-rays ordered; and if there is suspicion will need CT scan/MRI. Patient is already on Xarelto. 2. Acute kidney injury on CKD stage III: Patient's creatinine went up from 1.35-1.67 last 4 days with BUN from 28-38. On IV fluid normal saline. Monitor electrolytes and kidney function. 3. Other chronic comorbidities include COPD on inhalers, recent history of PE on Xarelto, chronic iron deficiency anemia, dyslipidemia, hypertension obesity, history of prostate cancer, rheumatoid arthritis, GERD and macular degeneration: Home medication reconciliation done. Multiple comorbidities complicates the present care. DVT prophylaxis: On Xarelto. This note was generated with [employer] dictation software. 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 Code Visit Inpatient Pee AND M: [id number] Init Hosp L3 09/10/17 0133 <Electronically signed by Neil Vargas MD> Date Neil Vargas MD Cosigner Signature: Date (if applicable) CC: Neil Vargas MD; Lambert Larios MD Signed EMERGENCY DEPARTMENT Observed: 09/10/2017 Status: F Source: KINSTON SUMMARY 12:33 AM [facility] Medical Records Department [address] [place] [id number] Emergency Department Summary 09/10/17 0029 MR#: [id number] Acct: [id number] Name: CARISSA YIP Rep #: [id number] : 1940 76 From: Casa Powell MD PCP: Lambert Larios MD Status: REG ER - ER Visit Summary Date of Service: 09/10/17 Chief Complaint: Wound check History of Present Illness: The patient is a 76 M who 4 days ago had a large left leg laceration which was closed but there is note of tension on the wound and was only to be completely closed. He states that he was prescribed prophylactic antibiotics. He has an appointment with wound care in 2 days. However over the past 3 days he has had clear and yellow drainage from the wound as well as foul odor. He has noticed swelling and redness. He denies systemic symptoms such as fevers nausea vomiting. Physical Examination: Blood pressure 123/62 temperature 97.9 heart rate 97 respiratory rate 16 Patient resting comfortably no distress Heart regular Lungs clear There is a large left leg laceration with an open wound there is a foul odor I do not appreciate active drainage currently the lower leg is very erythematous and hot to the touch and he has left foot edema there is a strong dorsalis pedis Doppler signal I could not palpate this easily due to edema Test Results: Laboratory studies notable for hemoglobin of 9.5 and creatinine of 1.67 which does appear to be slightly increased from baseline. Emergency Department Course and Treatment: Patient was treated with IV fluids and Unasyn. To the large extent of the cellulitis as well as wound infection and the fact that he has developed infection despite prophylactic oral antibiotics I do feel he needs admitted for IV antibiotics. Patient to be discussed with the hospitalist and admitted. Treatment Plan: [] Disposition: Admit Impression: Left leg cellulitis Wound infection This note was generated with [employer] dictation software. It may contain incorrect words, spelling, and punctuation that were not noted in review of the chart prior to signing ED Disposition - Plan for ED Patient: Chief Complaint: Wound Check Referrals: Lambert Larios MD [Primary Care Provider] - What to do if you have Problems For any increased pain, shortness of breath, bleeding, nausea or vomiting, chest pain, or any unexpected problems, contact your Primary Care Provider. Call [facility] ([phone]) or report to the closest Emergency Room. Call 911 if necessary. 09/10/17 0033 <Electronically signed by Casa Powell MD> Date Casa Powell MD Cosigner Signature (If Indicated): Date CC: Lambert Larios MD CBC W/DIFF, AUTOMATED Collected: 09/09/2017 Status: F Source: KINSTON 11:30 PM [facility] REPOSITORY TYPE CODE TESTS RESULT OUT OF RANGE REFERENCE UNITS LAB L100.1000 4.4-11.0 K/mm3 Normal WBC 5.5 LAB L100.1200 4.6-6.2 M/mm3 Low RBC 3.27 LAB L100.1300 13.0-16.5 g/dl Low HGB 9.5 LAB L100.1400 40-54 % Low HCT 29.1 LAB L100.1500 80-94 fL Normal MCV 89.0 LAB L100.1600 27.0-32.0 pg Normal MCH 29.1 LAB L100.1700 32-36 g/gl Normal MCHC 32.6 LAB L100.1810 11.6-14.6 % High RDW CV 15.2 LAB L100.1820 35.1-43.9 fl High RDW SD 48.6 LAB L100.1900 150-450 K/mm3 Normal PLT 187 LAB L100.2000 6.2-12.0 fl Normal MPV 9.9 LAB L100.2100 47-70 % High NEUT% 72.3 LAB L100.2200 19-41 % Low LY% 12.5 LAB L100.2300 0-10 % High MONO% 11.5 LAB L100.2400 0-5 % Normal EO% 2.2 LAB L100.2500 0-1 % Normal BASO% 0.2 LAB L100.2550 0.0-0.9 % High IM GRAN % 1.300 Result Comment: IG% - Immature Granulocytes (promyelocytes, myelocytes and metamyelocytes) > 1% indicates that a LEFT SHIFT is Present. LAB L100.2620 2.0-7.7 X10 3/uL Normal Absolute Neut 4.0 LAB L100.2720 0.83-4.51 X10 3/ul Low Absolute Lymph 0.68 Performed By: #### L100.0100 #### [facility] [address] [facility] [place], [place], [id number] BASIC METABOLIC Collected: 09/09/2017 Status: F Source: [place] PROFILE (BMP) 11:30 PM [facility] REPOSITORY TYPE CODE TESTS RESULT OUT OF RANGE REFERENCE UNITS LAB L501.0100 74-106 mg/dL High GLU 113 Result Comment: Fasting Glucose result from 100 to 125 mg/dL suggests IMPAIRED HOMEOSTASIS per A.D.A. criteria. Please note revised GLUCOSE reference range effective 2017. LAB L501.1000 7-18 mg/dL High BUN 38 LAB L501.1100 0.70-1.30 mg/dL High CREAT,SERUM 1.67 Result Comment: The validity of the calculated GFR AND GFRAA in patients over 70 years has not been determined. Clinical correlation is essential. LAB L501.1110 >60 mL/min Low EST GFR 42 Result Comment: Non- GFR Calc LAB L501.1115 >60 mL/min Low EST GFR - AA 51 Result Comment: GFR Calc LAB L501.1255 ml/min Normal Estimated CRCL 30.53 LAB L501.1300 10-20 RATIO High BUN/CRE 22.8 LAB L501.2200 8.5-10 mg/dL Normal .1 CA 8.6 LAB L501.5300 136-14 mmol/L Normal 5 NA 138 LAB L501.5600 3.5-5. mmol/L Normal 1 K 5.0 LAB L501.5900 98-107 mmol/L Normal CL 107 LAB L501.6100 21.0-3 mmol/L Normal 2.0 CO2 24.0 LAB L501.6200 5-15 Normal GAP 7 Performed By: #### L500.2500 #### [facility] [address] [facility] [facility]. [place], [place], [id number] PROTHROMBIN TIME W/INR Collected: 09/09/2017 Status: F Source: [place] 11:30 PM [facility] [place] REPOSITORY TYPE CODE TESTS RESULT OUT OF RANGE REFERENCE UNITS LAB L300.4150 11.7-14.9 SECONDS High PROTIME 19.4 LAB L300.4200 Normal INR 1.6 Performed By: #### L300.3900, L300.4310 #### [facility] [address] [place], [place], [id number] PARTIAL THROMBOPLAST Collected: 09/09/2017 Status: F Source: [place] TIME 11:30 PM [facility] REPOSITORY TYPE CODE TESTS RESULT OUT OF REFERENCE UNITS RANGE LAB L300.4310 24.1-36.2 Seconds High PTT 55.4 Performed By: #### L300.3900, L300.4310 #### [facility] [address] [facility] [place], [address] LIVER PROFILE Collected: 09/09/2017 Status: F Source: [place] 11:30 PM [facility] REPOSITORY TYPE CODE TESTS RESULT OUT OF RANGE REFERENCE UNITS LAB L501.1500 6.4-8.2 g/dL Normal T PROT 6.8 LAB L501.1800 3.2-5.0 g/dL Low ALB 2.7 LAB L501.1950 2.2-4.2 g/dL Normal GLOB 4.1 LAB L501.4100 15-37 U/L Normal AST 31 LAB L501.4305 45-117 U/L Normal ALK P 71 LAB L501.4405 16-61 U/L Normal ALT 28 LAB L501.4600 0.20-1.00 mg/dL Normal T BILI 0.30 LAB L501.4700 0.00-0.30 mg/dL Normal D BILI 0.15 Performed By: #### L500.3400, L501.6710 #### [facility] [address] [place], [address] CRP Collected: 09/09/2017 Status: F Source: [place] 11:30 PM [facility] REPOSITORY TYPE CODE TESTS RESULT OUT OF RANGE REFERENCE UNITS LAB L501.6710 0.0-3.0 mg/L High 121.00 C-REACTIVE PROT Result Comment: C-Reactive Protein (CRP) provides useful information for the diagnosis, therapy and monitoring of inflammatory processes and associated diseases. For the evaluation of Relative Risk for Cardiovascular Disease, a High Sensitivity CRP (HSCRP) should be ordered. Performed By: #### L500.3400, L501.6710 #### [facility] [address] [place], [address] ERYTHROCYTE SED RATE Collected: 09/09/2017 Status: F Source: [place] 11:30 PM [facility] REPOSITORY TYPE CODE TESTS RESULT OUT OF RANGE REFERENCE UNITS LAB L102.0000 0-20 mm/hr High SED RATE 66 Performed By: #### L101.9900 #### [facility] [address] [facility]. [place], [place], [id number] HEMOGLOBIN A1C Collected: 09/09/2017 Status: F Source: [place] 11:30 PM [facility] [place] REPOSITORY TYPE CODE TESTS RESULT OUT OF RANGE REFERENCE UNITS LAB L501.9985 4.2-6.3 % High HGB A1C 6.9 Performed By: #### L501.9985 #### [facility] [address] [place], [address] Observed: 09/09/2017 Status: F Source: [place] CULTURE, BLOOD (WB) 11:30 PM [facility] REPOSITORY BC No growth in 5 days. Performed By: #### M200.1000 #### [facility] [address], [address] 12 LEAD ELECTROCARDIOGRAM Observed: 09/08/2017 Status: F Source: [place] 2:22 PM [facility] [place] REPOSITORY [facility] Cardiovascular Services [address] [place] [address] 12 Lead EKG 09/05/17 1542 MR#: [id number] Acct: [id number] Name: CARISSA YIP Rep #: [id number] : 1940 76 From: Jer Josue MD Attending Dr: Status: DEP ER Ordering Dr: Prasanth Meier DO Date: 09/05/17 Location: ED Sex: M C Admitted: Test Reason : Blood Pressure : / mmHG Vent. Rate : 107 BPM Atrial Rate : 107 BPM P-R Int : 128 ms QRS Dur : 082 ms QT Int : 326 ms P-R-T Axes : 052 058 050 degrees QTc Int : 435 ms Sinus tachycardia Otherwise normal ECG Confirmed by SINAI MOULTON, JER ([id number]), graphics editor YARON WOODS ([id number]) on 09/08/2017 2:21:58 PM Referred By: Prasanth Meier Confirmed By:JER JOSUE MD 09/08/17 1422 Date Jer Josue MD CC: Prasanth Meier DO; Lambert Larios MD Signed TIBIA AND FIBULA Observed: 09/05/2017 Status: F Source: BR[place] 2 VIEWS 3:14 PM [facility] [place] REPOSITORY [facility] Imaging Services [address] [place] [address] Tibia AND Fibula 2 Views MR#: [id number] Acct: [id number] Name: CARISSA YIP Rep #: [id number] : 1940 M 76 From: Antonio Kahn MD PCP: Lambert Larios MD Status: REG ER Study: Tibia AND Fibula 2 Views Date of Exam: 09/05/17 Exam# [id number] Ordering Dr: Prasanth Meier DO STUDY: X-RAY - LEFT TIBIA AND FIBULA REASON FOR EXAM: Male, 76 years old. Soft tissue injury. TECHNIQUE: 4 view(s) of the tibia and fibula were obtained. COMPARISON: None. FINDINGS: Normal visualized tibia. Normal visualized fibula. Small plantar spur. 2. Patient status post total knee replacement. Soft tissue injury and laceration overlying the lateral aspect of the leg. The bony structures are unremarkable. RAD/Tibia AND Fibula 2 Views IMPRESSION: Soft tissue injury and laceration. No radiopaque foreign body is seen. Electronically Signed: Antonio Kahn MD at 15:50 EDT Tel [phone], Service support , CC: Prasanth Meier DO; Lambert Larios MD Orthotics Prosthetics Assistant: Signed BASIC METABOLIC Collected: 09/05/2017 Status: F Source: [place] PROFILE (BMP) 3:05 PM [facility] REPOSITORY TYPE CODE TESTS RESULT OUT OF RANGE REFERENCE UNITS LAB L501.0100 74-106 mg/dL High GLU 167 Result Comment: Fasting Glucose result greater than or equal to 126 mg/dL suggests DIABETES MELLITUS per A.D.A. criteria. Please note revised GLUCOSE reference range effective 2017. LAB L501.1000 7-18 mg/dL High BUN 28 LAB L501.1100 0.70-1.30 mg/dL High CREAT,SERUM 1.35 Result Comment: The validity of the calculated GFR AND GFRAA in patients over 70 years has not been determined. Clinical correlation is essential. LAB L501.1110 >60 mL/min Low EST GFR 54 Result Comment: Non- GFR Calc LAB L501.1115 >60 mL/min Normal EST GFR - AA 66 Result Comment: GFR Calc LAB L501.1255 ml/min Normal Estimated CRCL 37.76 LAB L501.1300 10-20 RATIO High BUN/CRE 20.7 LAB L501.2200 8.5-10 mg/dL Low .1 CA 8.2 LAB L501.5300 136-14 mmol/L Normal 5 NA 139 LAB L501.5600 3.5-5. mmol/L High 1 K 5.2 LAB L501.5900 98-107 mmol/L High CL 110 LAB L501.6100 21.0-3 mmol/L Normal 2.0 CO2 22.0 LAB L501.6200 5-15 Normal GAP 7 Performed By: #### L500.2500 #### [facility] [address] [place], [place], [address] CBC W/DIFF, AUTOMATED Collected: 09/05/2017 Status: F Source: [place] 3:05 PM [facility] REPOSITORY TYPE CODE TESTS RESULT OUT OF RANGE REFERENCE UNITS LAB L100.1000 4.4-11.0 K/mm3 Normal WBC 8.0 LAB L100.1200 4.6-6.2 M/mm3 Low RBC 4.06 LAB L100.1300 13.0-16.5 g/dl Low HGB 11.5 LAB L100.1400 40-54 % Low HCT 36.3 LAB L100.1500 80-94 fL Normal MCV 89.4 LAB L100.1600 27.0-32.0 pg Normal MCH 28.3 LAB L100.1700 32-36 g/gl Low MCHC 31.7 LAB L100.1810 11.6-14.6 % High RDW CV 15.2 LAB L100.1820 35.1-43.9 fl High RDW SD 49.2 LAB L100.1900 150-450 K/mm3 Normal PLT 167 LAB L100.2000 6.2-12.0 fl Normal MPV 10.1 LAB L100.2100 47-70 % High NEUT% 84.2 LAB L100.2200 19-41 % Low LY% 8.1 LAB L100.2300 0-10 % Normal MONO% 6.9 LAB L100.2400 0-5 % Normal EO% 0.1 LAB L100.2500 0-1 % Normal BASO% 0.1 LAB L100.2550 0.0-0.9 % Normal IM GRAN % 0.600 Result Comment: IG% - Immature Granulocytes (promyelocytes, myelocytes and metamyelocytes) > 1% indicates that a LEFT SHIFT is Present. LAB L100.2620 2.0-7.7 X10 3/uL Normal Absolute Neut 6.7 LAB L100.2720 0.83-4.51 X10 3/ul Low Absolute Lymph 0.64 Performed By: #### L100.0100 #### [facility] [address] [facility] [place], [address] PROTHROMBIN TIME W/INR Collected: 09/05/2017 Status: F Source: [place] 3:05 PM [facility] REPOSITORY TYPE CODE TESTS RESULT OUT OF RANGE REFERENCE UNITS LAB L300.4150 11.7-14.9 SECONDS High PROTIME 19.8 LAB L300.4200 Normal INR 1.7 Performed By: #### L300.3900, L300.4310 #### [facility] [address] [place], [address] PARTIAL THROMBOPLAST Collected: 09/05/2017 Status: F Source: [place] TIME 3:05 PM [facility] REPOSITORY TYPE CODE TESTS RESULT OUT OF REFERENCE UNITS RANGE LAB L300.4310 24.1-36.2 Seconds High PTT 41.1 Performed By: #### L300.3900, L300.4310 #### [facility] [address] [place], [address] XR CHEST 2V FRONTAL/LAT Observed: 08/29/2017 Status: F Source: [place] 12:36 PM [facility] REPOSITORY * * *Final Report* * * DATE OF EXAM: Aug 29 2017 12:36PM WRX [id number] - XR CHEST 2V FRONTAL/LAT / PROCEDURE REASON: Other nonspecific abnormal finding of lung field * * * * Physician Interpretation * * * * EXAMINATION: CHEST RADIOGRAPH (2 VIEW FRONTAL and LATERAL) Clinical History: Other nonspecific abnormal finding of lung field MQ: [id number] Comparison: Chest x-ray 08/07/2017 RESULT: Lines, tubes, and devices: None. Lungs and pleura: Stable bilateral pleural calcifications. No acute infiltrate. Resolution RIGHT basilar airspace disease. Cardiomediastinal silhouette: Normal cardiomediastinal silhouette. Other: None IMPRESSION: No residual infiltrate is evident. Pleural calcifications Orthotics Prosthetics Assistant: PSCB Transcribe Date/Time: Aug 29 2017 4:51P Dictated by : МАРИНА PENN MD This examination was interpreted and the report reviewed and electronically signed by: МАРИНА PENN MD on Aug 29 2017 4:52PM EST [id number] PROGRESS Observed: 08/29/2017 Status: COMPLETED Source: [place] 12:27 PM [facility] REPOSITORY HNO ID: [id number] Author: Blake Dowell (Tech) Service: (none) Author Type: Mold Tooling Technician Type: Progress Notes Filed: 08/29/2017 12:36 PM Note Text: Radiology Service Progress Note PATIENT NAME: Carissa Yip DATE OF SERVICE: August 29, 2017 TIME: 12:27 PM PATIENT IDENTITY VERIFICATION COMPLETED USING TWO (2) METHODS: Patient confirmed name verbally and Date of . PATIENT GENDER DATA: Male PATIENT RELEVANT IMPLANT DATA REVIEWED: Not Applicable RADIOLOGY DEPARTMENT: General X-ray: Exam(s) Completed: Chest X-Ray PERIPHERAL IV DATA: Not applicable SIGNED BY: Blake Ray August 29, 2017 12:27 PM BRENDA CASE BMP Collected: 08/25/2017 Status: F Source: [place] 11:13 AM [facility] REPOSITORY TYPE CODE TESTS RESULT OUT OF REFERENCE UNITS RANGE LAB NAWB 135-146 mmol/L Sodium, Whole 136 Bld LAB K1WB 3.5-5.0 mmol/L Potassium,Who 4.8 le Bld LAB CLWB 98-110 mmol/L Chloride, 104 Whole Bld LAB ICAWB 1.08-1.30 mmol/L Ionized 1.21 Calcium, WB Result Comment: Please note: This value represents ionized calcium not total calcium. LAB CO2WB 23-32 mmol/L TCO2, Whole 23 Blood LAB GLUWB 65-100 mg/dL High Glucose, 179 Whole Bld LAB BUNWB 10-25 mg/dL High BUN, Whole 29 Blood LAB BCRET 0.70-1.40 mg/dL Creatinine,Wh 1.10 ole Bld LAB AGAPWB 0-15 mmol/L Anion Gap, 9 Whole Bld LAB GFRAA eGFR- >60 Amer. LAB GFRNAA . eGFR-All >60 Other Races Result Comment: eGFR (Estimated GFR) Units of measure: mL/min/1.73 meters squared eGFR is derived from the reexpressed MDRD Study equation using the following parameters: serum creatinine, age, gender and race. The creatinine assay has been calibrated to be traceable to IDMS. An eGFR <60 mL/min/1.73m2 for >3 months is consistent with chronic kidney disease. Refer to KDOQI guidelines for clinical interpretation. In patients with unstable renal function, e.g. those with acute kidney injury, the eGFR may not accurately reflect actual GFR. PROGRESS Observed: 08/25/2017 Status: COMPLETED Source: [place] 10:52 AM [facility] REPOSITORY O ID: [id number] Author: Lambert Larios Service: (none) Author Type: Physician Type: Progress Notes Filed: 08/25/2017 11:06 AM Note Text: This note was created using [employer]. Subjective Carissa Yip is a 76 year old male was here for follow up with his spouse. He was seen for memory difficulties which continue. He mainly kept losing things at home. He was mixing up names of friends at times. He still kept track of his medications. He did not drive due to poor vision. His depression and anxiety were controlled on sertraline 150 mg daily. In June, he treated for pneumonia and exacerbation of asthma. His labs now showed diabetes mellitus by HgbA1C criteria. 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 montelukast (SINGULAIR) 10 mg tablet Take 1 tablet by mouth daily at bedtime. guaiFENesin (MUCINEX) 600 mg 12 hr tablet Take 1 tablet by mouth twice daily. ADVAIR HFA 230-21 mcg/actuation inhaler take 2 inhalations by mouth twice a day Rinse mouth after use rivaroxaban (XARELTO) 20 mg tablet Take 1 tablet by mouth daily with dinner. omeprazole (PRILOSEC) 20 mg capsule Take 1 capsule by mouth daily before breakfast. 1/2 hr before meal. lisinopril (ZESTRIL, PRINIVIL) 20 mg tablet Take 1 tablet by mouth once daily. atorvastatin (LIPITOR) 10 mg tablet take 1 tablet by mouth at bedtime leflunomide (ARAVA) 10 mg tablet Take 10 mg by mouth once daily. VENTOLIN HFA 90 mcg/actuation inhaler inhale 2 puffs every 4 hours if needed SPIRIVA WITH HANDIHALER 18 mcg inhalation capsule inhale the contents of one capsule in the handihaler once daily nystatin-triamcinolone (MYCOLOG II) cream Apply 1 application to affected area twice daily as needed. Genital rash. azelastine (ASTELIN,ASTEPRO) 0.1% nasal spray instill 2 sprays into each nostril twice a day ipratropium-albuterol (DUONEB) 0.5 mg-3 mg(2.5 mg base)/3 mL nebu Inhale 3 mL as instructed four times daily as needed. by nebulizer over 5 to 15 minutes. fluticasone (FLONASE) 50 mcg/actuation nasal spray instill 2 sprays into each nostril twice a day EPINEPHrine (EPIPEN) 0.3 mg/0.3 mL auto-injector Inject 0.3 mL intramuscularly as needed. albuterol HFA (PROVENTIL HFA) 90 mcg/actuation inhaler Inhale 2 Puffs as instructed. polyethylene glycol 3350 (MIRALAX, GLYCOLAX) 17 gram/dose powder Take 17 g by mouth once daily. Take one (1) capful in 8oz of liquid each day. ferrous sulfate 325 mg (65 mg iron) tablet Take one(1) tablet two(2) times daily. (Patient taking differently: Take by mouth once daily. Take one(1) tablet two(2) times daily.) ipratropium (ATROVENT) 0.02 % nebulizer solution 500 mcg (one ampule) nebulized four times a day as needed. Vitamin A-Vit C-Vit E-Zinc-Cu (OCUVITE PRESERVISION) ORAL Tab Take one(1) tablet two(2) times daily. nitroglycerin sublingual (NITROQUICK) 0.4 mg SL tablet Dissolve 1 tablet under the tongue every 5 minutes as needed for Chest Pain. COMPOUNDED PRESCRIPTION Polypodium Leucotomos extract (Daily Defense). Take 2 capsules once a day. 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 No current facility-administered medications for this visit. Review of Systems Constitutional: Negative. HENT: Jaw pain with indigestion last night, lasting 10 minutes. Respiratory: Positive for cough, shortness of breath and wheezing. Cardiovascular: Positive for leg swelling. Negative for chest pain and palpitations. Gastrointestinal: Negative. Genitourinary: Negative. Musculoskeletal: Positive for arthralgias. Stable. Neurological: Positive for numbness. Left foot numbness off and on. Objective BP 134/66 (BP Site: Left Arm, BP Position: Sitting, BP Cuff Size: Regular Adult) Pulse 100 Temp 36.4 ?C (97.6 ?F) (Left Tympanic) Resp 20 Wt 96.2 kg (212 lb) BMI 34.22 kg/m2 Physical Exam Constitutional: He is oriented to person, place, and time. No distress. Eyes: Conjunctivae are normal. Neck: No JVD present. Cardiovascular: S1 normal and S2 normal. No extrasystoles are present. Exam reveals no gallop. No murmur heard. Pulmonary/Chest: No respiratory distress. He has wheezes. He has no rales. Abdominal: Soft. There is no tenderness. There is no rebound and no guarding. Musculoskeletal: He exhibits edema. Neurological: He is alert and oriented to person, place, and time. Feet: Shoes and socks removed, No deformities, ulcers, calluses, normal distal pulses and sensitive to 10 gm monofilament Component Latest Ref Rng AND Units 07/21/2017 WBC 3.70 - 11.00 k/uL 6.26 RBC 4.20 - 6.00 m/uL 4.37 Hemoglobin 13.0 - 17.0 g/dL 12.3 (L) Hematocrit 39.0 - 51.0 % 39.3 MCV 80.0 - 100.0 fL 89.9 MCH 26.0 - 34.0 pG 28.1 MCHC 30.5 - 36.0 g/dL 31.3 RDW-CV 11.5 - 15.0 % 15.4 (H) Platelet Count 150 - 400 k/uL 187 MPV 9.0 - 12.7 fL 11.7 Neut% % 72.3 Abs Neut (ANC) 1.45 - 7.50 k/uL 4.53 Lymph% % 15.5 Abs Lymph 1.00 - 4.00 k/uL 0.97 (L) Teller% % 10.9 Abs Teller <0.87 k/uL 0.68 Eosin% % 1.1 Abs Eosin <0.46 k/uL 0.07 Baso% % 0.2 Abs Baso <0.11 k/uL <0.03 Nucleated Reds 0 /100 WBC 0.0 Absolute nRBC <0.01 k/uL <0.01 Diff Type Auto Diff Protein, Total 6.3 - 8.0 g/dL 7.6 Albumin 3.9 - 4.9 g/dL 4.0 Calcium 8.5 - 10.2 mg/dL 9.8 Bilirubin, Total 0.2 - 1.3 mg/dL 0.6 Alkaline Phosphatase 36 - 108 U/L 68 AST 14 - 40 U/L 31 Glucose 74 - 99 mg/dL 96 BUN 9 - 24 mg/dL 24 Creatinine 0.73 - 1.22 mg/dL 1.18 Sodium 136 - 144 mmol/L 134 (L) Potassium 3.7 - 5.1 mmol/L 5.2 (H) Chloride 97 - 105 mmol/L 101 CO2 22 - 30 mmol/L 19 (L) Anion Gap 9 - 18 mmol/L 14 ALT 10 - 54 U/L 28 eGFR- >60 eGFR-All Other Races . 60 Cholesterol, Total <200 mg/dL Triglyceride <150 mg/dL HDL Cholesterol >39 mg/dL LDL Cholesterol <100 mg/dL Non HDL Cholesterol <130 mg/dL Fasting Time hrs VLDL Cholesterol <30 mg/dL TC:HDL Ratio <5.10 LDL:HDL Ratio <2.54 Creatinine, Ur Random (UCRR) 20 - 300 mg/dL Albumin, Urine Random 0.0 - 23.0 mg/L Albumin/Creat Ratio 0 - 30 mg/g Hemoglobin A1C 4.3 - 5.6 % Estimated Average Glucose mg/dL Vitamin B12 232 - 1245 pg/mL 536 TSH 0.400 - 5.500 uU/mL 5.650 (H) TSH (uU/mL) Date Value 08/21/2017 4.460 07/21/2017 5.650 ) EKG RESULTS: normal EKG, normal sinus rhythm Assessment and Plan ASSESSMENT/PLAN: 1. Jaw pain, non-TMJ - ICD9: 784.92, ICD10: R68.84 (primary diagnosis) Episodic. Try NTG. Discussed medication dosage, usage, goals of therapy, and side effects. If symptoms respond to NTG see Dr. Luci cloud. - ECG COMPLETE W INTERPRETATION - NITROGLYCERIN 0.4 MG SUBLINGUAL TABLET 2. Depression with anxiety - ICD9: 300.4, ICD10: F41.8 Controlled. - SERTRALINE 100 MG TABLET 3. Uncomplicated severe persistent asthma - ICD9: 493.90, ICD10: J45.50 Stable. - Continue current meds - MONTELUKAST 10 MG TABLET 4. Pulmonary hypertension - ICD9: 416.8, ICD10: I27.20 Followed by cardiology. 5. Other pulmonary embolism without acute cor pulmonale, unspecified chronicity (HCC) - ICD9: 415.19, ICD10: I26.99 Finishing Xarelto. Seeing pulmonary. 6. 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 - Options were discussed. No medication will be added for now. 7. Inflammatory polyarthropathy of multiple sites (HCC) - ICD9: 714.9, ICD10: M06.4 Mild. No active treatment now. 8. Hyperkalemia - ICD9: 276.7, ICD10: E87.5 Recheck. - BRENDA ISTAT BMP 9. Memory disturbance - ICD9: 780.93, ICD10: R41.3 Options discussed. We agreed to no additional medications at this time. I spent 45 minutes more than half for discussion. Lambert Larios MD CNOV Observed: 08/25/2017 Status: COMPLETED Source: [place] 9:40 AM [facility] REPOSITORY Office Visit (INTMWS) CARISSA YIP ([id number]) 1940 M Date Time Provider Department 08/25/17 9:40 AM [facility] INTMWS During your visit today, we recorded the following information about you: Temperature Pulse Respiration Blood pressure 97.6 degrees 100/minute 20/minute 134/66 Weight 96.2 kg Lambert Larios MD 08/25/2017 11:06 AM Addendum This note was created using [employer]. Subjective Carissa Yip is a 76 year old male was here for follow up with his spouse. He was seen for memory difficulties which continue. He mainly kept losing things at home. He was mixing up names of friends at times. He still kept track of his medications. He did not drive due to poor vision. His depression and anxiety were controlled on sertraline 150 mg daily. In June, he treated for pneumonia and exacerbation of asthma. His labs now showed diabetes mellitus by HgbA1C criteria. 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 montelukast (SINGULAIR) 10 mg tablet Take 1 tablet by mouth daily at bedtime. guaiFENesin (MUCINEX) 600 mg 12 hr tablet Take 1 tablet by mouth twice daily. ADVAIR HFA 230-21 mcg/actuation inhaler take 2 inhalations by mouth twice a day Rinse mouth after use rivaroxaban (XARELTO) 20 mg tablet Take 1 tablet by mouth daily with dinner. omeprazole (PRILOSEC) 20 mg capsule Take 1 capsule by mouth daily before breakfast. 1/2 hr before meal. lisinopril (ZESTRIL, PRINIVIL) 20 mg tablet Take 1 tablet by mouth once daily. atorvastatin (LIPITOR) 10 mg tablet take 1 tablet by mouth at bedtime leflunomide (ARAVA) 10 mg tablet Take 10 mg by mouth once daily. VENTOLIN HFA 90 mcg/actuation inhaler inhale 2 puffs every 4 hours if needed SPIRIVA WITH HANDIHALER 18 mcg inhalation capsule inhale the contents of one capsule in the handihaler once daily nystatin-triamcinolone (MYCOLOG II) cream Apply 1 application to affected area twice daily as needed. Genital rash. azelastine (ASTELIN,ASTEPRO) 0.1% nasal spray instill 2 sprays into each nostril twice a day ipratropium-albuterol (DUONEB) 0.5 mg-3 mg(2.5 mg base)/3 mL nebu Inhale 3 mL as instructed four times daily as needed. by nebulizer over 5 to 15 minutes. fluticasone (FLONASE) 50 mcg/actuation nasal spray instill 2 sprays into each nostril twice a day EPINEPHrine (EPIPEN) 0.3 mg/0.3 mL auto-injector Inject 0.3 mL intramuscularly as needed. albuterol HFA (PROVENTIL HFA) 90 mcg/actuation inhaler Inhale 2 Puffs as instructed. polyethylene glycol 3350 (MIRALAX, GLYCOLAX) 17 gram/dose powder Take 17 g by mouth once daily. Take one (1) capful in 8oz of liquid each day. ferrous sulfate 325 mg (65 mg iron) tablet Take one(1) tablet two(2) times daily. (Patient taking differently: Take by mouth once daily. Take one(1) tablet two(2) times daily.) ipratropium (ATROVENT) 0.02 % nebulizer solution 500 mcg (one ampule) nebulized four times a day as needed. Vitamin A-Vit C-Vit E-Zinc-Cu (OCUVITE PRESERVISION) ORAL Tab Take one(1) tablet two(2) times daily. nitroglycerin sublingual (NITROQUICK) 0.4 mg SL tablet Dissolve 1 tablet under the tongue every 5 minutes as needed for Chest Pain. COMPOUNDED PRESCRIPTION Polypodium Leucotomos extract (Daily Defense). Take 2 capsules once a day. 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 No current facility-administered medications for this visit. Review of Systems Constitutional: Negative. HENT: Jaw pain with indigestion last night, lasting 10 minutes. Respiratory: Positive for cough, shortness of breath and wheezing. Cardiovascular: Positive for leg swelling. Negative for chest pain and palpitations. Gastrointestinal: Negative. Genitourinary: Negative. Musculoskeletal: Positive for arthralgias. Stable. Neurological: Positive for numbness. Left foot numbness off and on. Objective BP 134/66 (BP Site: Left Arm, BP Position: Sitting, BP Cuff Size: Regular Adult) Pulse 100 Temp 36.4 ?C (97.6 ?F) (Left Tympanic) Resp 20 Wt 96.2 kg (212 lb) BMI 34.22 kg/m2 Physical Exam Constitutional: He is oriented to person, place, and time. No distress. Eyes: Conjunctivae are normal. Neck: No JVD present. Cardiovascular: S1 normal and S2 normal. No extrasystoles are present. Exam reveals no gallop. No murmur heard. Pulmonary/Chest: No respiratory distress. He has wheezes. He has no rales. Abdominal: Soft. There is no tenderness. There is no rebound and no guarding. Musculoskeletal: He exhibits edema. Neurological: He is alert and oriented to person, place, and time. Feet: Shoes and socks removed, No deformities, ulcers, calluses, normal distal pulses and sensitive to 10 gm monofilament Component Latest Ref Rng ANDamp; Units 07/21/2017 WBC 3.70 - 11.00 k/uL 6.26 RBC 4.20 - 6.00 m/uL 4.37 Hemoglobin 13.0 - 17.0 g/dL 12.3 (L) Hematocrit 39.0 - 51.0 % 39.3 MCV 80.0 - 100.0 fL 89.9 MCH 26.0 - 34.0 pG 28.1 MCHC 30.5 - 36.0 g/dL 31.3 RDW-CV 11.5 - 15.0 % 15.4 (H) Platelet Count 150 - 400 k/uL 187 MPV 9.0 - 12.7 fL 11.7 Neut% % 72.3 Abs Neut (ANC) 1.45 - 7.50 k/uL 4.53 Lymph% % 15.5 Abs Lymph 1.00 - 4.00 k/uL 0.97 (L) Teller% % 10.9 Abs Teller ANDlt;0.87 k/uL 0.68 Eosin% % 1.1 Abs Eosin ANDlt;0.46 k/uL 0.07 Baso% % 0.2 Abs Baso ANDlt;0.11 k/uL ANDlt;0.03 Nucleated Reds 0 /100 WBC 0.0 Absolute nRBC ANDlt;0.01 k/uL ANDlt;0.01 Diff Type Auto Diff Protein, Total 6.3 - 8.0 g/dL 7.6 Albumin 3.9 - 4.9 g/dL 4.0 Calcium 8.5 - 10.2 mg/dL 9.8 Bilirubin, Total 0.2 - 1.3 mg/dL 0.6 Alkaline Phosphatase 36 - 108 U/L 68 AST 14 - 40 U/L 31 Glucose 74 - 99 mg/dL 96 BUN 9 - 24 mg/dL 24 Creatinine 0.73 - 1.22 mg/dL 1.18 Sodium 136 - 144 mmol/L 134 (L) Potassium 3.7 - 5.1 mmol/L 5.2 (H) Chloride 97 - 105 mmol/L 101 CO2 22 - 30 mmol/L 19 (L) Anion Gap 9 - 18 mmol/L 14 ALT 10 - 54 U/L 28 eGFR- ANDgt;60 eGFR-All Other Races . 60 Cholesterol, Total ANDlt;200 mg/dL Triglyceride ANDlt;150 mg/dL HDL Cholesterol ANDgt;39 mg/dL LDL Cholesterol ANDlt;100 mg/dL Non HDL Cholesterol ANDlt;130 mg/dL Fasting Time hrs VLDL Cholesterol ANDlt;30 mg/dL TC:HDL Ratio ANDlt;5.10 LDL:HDL Ratio ANDlt;2.54 Creatinine, Ur Random (UCRR) 20 - 300 mg/dL Albumin, Urine Random 0.0 - 23.0 mg/L Albumin/Creat Ratio 0 - 30 mg/g Hemoglobin A1C 4.3 - 5.6 % Estimated Average Glucose mg/dL Vitamin B12 232 - 1245 pg/mL 536 TSH 0.400 - 5.500 uU/mL 5.650 (H) TSH (uU/mL) Date Value 08/21/2017 4.460 07/21/2017 5.650 ) EKG RESULTS: normal EKG, normal sinus rhythm Assessment and Plan ASSESSMENT/PLAN: 1. Jaw pain, non-TMJ - ICD9: 784.92, ICD10: R68.84 (primary diagnosis) Episodic. Try NTG. Discussed medication dosage, usage, goals of therapy, and side effects. If symptoms respond to NTG see Dr. Luci cloud. - ECG COMPLETE W INTERPRETATION - NITROGLYCERIN 0.4 MG SUBLINGUAL TABLET 2. Depression with anxiety - ICD9: 300.4, ICD10: F41.8 Controlled. - SERTRALINE 100 MG TABLET 3. Uncomplicated severe persistent asthma - ICD9: 493.90, ICD10: J45.50 Stable. - Continue current meds - MONTELUKAST 10 MG TABLET 4. Pulmonary hypertension - ICD9: 416.8, ICD10: I27.20 Followed by cardiology. 5. Other pulmonary embolism without acute cor pulmonale, unspecified chronicity (HCC) - ICD9: 415.19, ICD10: I26.99 Finishing Xarelto. Seeing pulmonary. 6. 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 - Options were discussed. No medication will be added for now. 7. Inflammatory polyarthropathy of multiple sites (HCC) - ICD9: 714.9, ICD10: M06.4 Mild. No active treatment now. 8. Hyperkalemia - ICD9: 276.7, ICD10: E87.5 Recheck. - BRENDA ISTAT BMP 9. Memory disturbance - ICD9: 780.93, ICD10: R41.3 Options discussed. We agreed to no additional medications at this time. I spent 45 minutes more than half for discussion. Lambert Larios MD Referring Provider: SELF [[id number]] Allergies As of Date: 08/25/2017 Noted Allergy Reaction INDOCIN (INDOMETHACIN SODIUM) 04/01/2011 14 - Other: See Comments Comments: Wheezing, can take naprosyn PERCOCET (OXYCODONE-ACETAMINOPHEN)01/08/2005 9 - Itching SEASONAL ALLERGIES 11/12/2012 14 - Other: See Comments Comments: Cat, Goats, Dust mites, molds, trees, grasses, weed, ragweed Date Reviewed: 08/25/2017 Reviewed by: Sudha Kilgore LPN - Fully Assessed Reason for Visit: Recheck [92] Primary Visit Diagnosis:Jaw pain, non-TMJ [R68.84] Other Visit Diagnoses:Depression with anxiety [F41.8] Uncomplicated severe persistent asthma [J45.50] Pulmonary hypertension [I27.20] Other pulmonary embolism without acute cor pulmonale, unspecified chronicity (HCC) [I26.99] Controlled type 2 diabetes mellitus without complication, without long-term current use of insulin (HCC) [E11.9] Inflammatory polyarthropathy of multiple sites (HCC) [M06.4] Hyperkalemia [E87.5] Memory disturbance [R41.3] Order(s):sertraline (ZOLOFT) 100 mg tabletTake 1.5 tablets by mouth once daily.Disp: 135 tabletRfl: 3 montelukast (SINGULAIR) 10 mg tabletTake 1 tablet by mouth daily at bedtime.Disp: 90 tabletRfl: 3 ECG COMPLETE W INTERPRETATION [ECG01] Order #: [id number] FUTURE nitroglycerin sublingual (NITROQUICK) 0.4 mg SL tabletDissolve 1 tablet under the tongue every 5 minutes as needed for Chest Pain.Disp: 1 Bottle of 25Rfl: 0 BRENDA ISTAT [facility] [SQWSTBMP] Order #: [id number] FUTURE Prescriptions as of 08/25/2017 Sig: SERTRALINE 100 MG TABLET Take 1.5 tablets by mouth onc* MONTELUKAST 10 MG TABLET Take 1 tablet by mouth daily * GUAIFENESIN ER 600 MG TABLET,* Take 1 tablet by mouth twice * ADVAIR HFA 230 MCG-21 MCG/ACT* take 2 inhalations by mouth t* RIVAROXABAN 20 MG TABLET Take 1 tablet by mouth daily * OMEPRAZOLE 20 MG CAPSULE,ALEX* Take 1 capsule by mouth daily* LISINOPRIL 20 MG TABLET Take 1 tablet by mouth once d* ATORVASTATIN 10 MG TABLET take 1 tablet by mouth at bed* LEFLUNOMIDE 10 MG TABLET Take 10 mg by mouth once christiano* VENTOLIN HFA 90 MCG/ACTUATION* inhale 2 puffs every 4 hours * SPIRIVA WITH HANDIHALER 18 MC* inhale the contents of one ca* NYSTATIN-TRIAMCINOLONE 100,00* Apply 1 application to affect* AZELASTINE 137 MCG (0.1 %) NA* instill 2 sprays into each no* IPRATROPIUM-ALBUTEROL 0.5 MG-* Inhale 3 mL as instructed fou* FLUTICASONE 50 MCG/ACTUATION * instill 2 sprays into each no* EPINEPHRINE 0.3 MG/0.3 ML INJ* Inject 0.3 mL intramuscularly* ALBUTEROL SULFATE HFA 90 MCG/* Inhale 2 Puffs as instructed. POLYETHYLENE GLYCOL 3350 17 G* Take 17 g by mouth once daily* FERROUS SULFATE 325 MG (65 MG* Take one(1) tablet two(2) link* Patient taking differently: Take by mouth once daily. Ta* IPRATROPIUM BROMIDE 0.02 % SO* 500 mcg (one ampule) nebulize* PRESERVISION AREDS 7,160 UNIT* Take one(1) tablet two(2) link* NITROGLYCERIN 0.4 MG SUBLINGU* Dissolve 1 tablet under the t* COMPOUNDED PRESCRIPTION Polypodium Leucotomos extract* Medication notes this encounter POLYETHYLENE GLYCOL 3350 17 GRAM/DOSE ORAL POWDER >> Sudha Kilgore LPN 08/25/2017 9:38 AM >> SUDHA KILGORE LPN FriAug 25, 2017 9:38 AM PRN FERROUS SULFATE 325 MG (65 MG IRON) TABLET >> Sudha Kilgore LPN 08/25/2017 9:36 AM >> SUDHA KILGORE LPN FriAug 25, 2017 9:36 AM Patient taking 1 tablet once daily. PREDNISONE 10 MG TABLET >> Sudha Kilgore LPN 08/25/2017 9:38 AM >> SUDHA KILGORE LPN FriAug 25, 2017 9:38 AM Course completed COMPOUNDED PRESCRIPTION >> Sudha Kilgore LPN 08/25/2017 9:36 AM >> SUDHA KILGORE LPN FriAug 25, 2017 9:36 AM Course completed MULTIVITAMIN TABLET >> Sudha Kilgore LPN 08/25/2017 9:38 AM >> SUDHA KILGORE LPN FriAug 25, 2017 9:38 AM Patient not taking. Problem List As Of Date 08/25/2017 Noted Resolved Asthma [J45.909] 08/25/2017 CHRONIC RHINITIS [J31.0] BPH without obstruction/lower urinary tract sym* ANXIETY STATE NOS [F41.1] 08/05/2014 Depression with anxiety [F41.8] Diverticulosis of colon (without mention of hem* 10/06/2012 ESOPHAGEAL REFLUX [K21.9] Internal hemorrhoids without mention of complic* 08/30/2010 Malignant neoplasm of prostate (HCC) [C61] INVALID FOR*08/05/2014 MACULAR DEGENERATION NOS [H35.30] Other specified iron deficiency anemias [D50.8] INVALID FOR*08/30/2010 Diabetes mellitus type 2, controlled, without c*INVALID FOR* Hyperlipidemia [E78.5] INVALID FOR* Personal history of colonic polyps [Z86.010] INVALID FOR*09/30/2011 More... FAMILY HX COLON CANCER [Z80.0] INVALID FOR*08/25/2017 PULMONARY NODULES [J98.4] INVALID FOR*10/06/2012 More... 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] INVALID FOR* Essential hypertension [I10] INVALID FOR* Generalized osteoarthritis of multiple sites [M*INVALID FOR* Benign neoplasm of rectum and anal canal [D12.8*INVALID FOR*10/06/2012 Benign neoplasm of colon [D12.6] INVALID FOR* Gout [M10.9] INVALID FOR* Venous insufficiency of leg [I87.2] INVALID FOR* Iron deficiency anemia due to chronic blood los*INVALID FOR* Inflammatory polyarthropathy of multiple sites *INVALID FOR* Unsteady gait [R26.81] INVALID FOR* Uncomplicated severe persistent asthma [J45.50] INVALID FOR* Other pulmonary embolism without acute cor pulm*INVALID FOR* Pulmonary hypertension (HCC) [I27.20] INVALID FOR* Memory disturbance [R41.3] INVALID FOR* Prescriptions ordered this encounter Disp Refills Start End SERTRALINE 100 MG TABLET 135 * 3 08/25/2017 Route: ORAL Sig: Take 1.5 tablets by mouth once daily. MONTELUKAST 10 MG TABLET 90 t* 3 08/25/2017 Route: ORAL Sig: Take 1 tablet by mouth daily at bedtime. NITROGLYCERIN 0.4 MG SUBLINGUAL TABL* 1 Carlos Alberto* 0 08/25/2017 Route: SUBLINGUAL Sig: Dissolve 1 tablet under the tongue every 5 minutes as needed for Chest Pain. Medications Discontinued During This Encounter predniSONE (DELTASONE) 10 mg tablet 30 t* 0 08/14/2017 08/25/2017 Si tablets daily for 3 days, 3 tablets daily for 3 days, 2 tablets daily for 3 days, 1 tablet daily for 3 days. Disc: Reason for discontinue is not on file. multivitamin tablet 0 02/22/2015 08/25/2017 Class: Historical Med Route: ORAL Sig: Take 1 tablet by mouth once daily. Disc: Reason for discontinue is not on file. sertraline (ZOLOFT) 100 mg tablet 06/02/2017 08/25/2017 Class: Med Update Route: ORAL Sig: Take 1 tablet by mouth twice daily. Disc: Reason for discontinue is not on file. montelukast (SINGULAIR) 10 mg tablet 90 t* 3 08/23/2016 08/25/2017 Route: ORAL Sig: Take 1 tablet by mouth daily at bedtime. Disc: Reason for discontinue is not on file. Disposition: Return in about 4 months (around 12/25/2017). Follow-up and Disposition History Recorded Encounter Status:Closed by LAMBERT LARIOS MD on 08/25/17 TSH Collected: 08/21/2017 Status: F Source: [place] 9:52 AM [facility] REPOSITORY TYPE CODE TESTS RESULT OUT OF RANGE REFERENCE UNITS LAB TSH 0.400-5.500 uU/mL TSH 4.460 Performed By: #### TSH #### [facility] [address] [address] ALBUMIN/CREAT RATIO Collected: 08/21/2017 Status: F Source: [place] 9:52 AM [facility] REPOSITORY TYPE CODE TESTS RESULT OUT OF REFERENCE UNITS RANGE LAB UCRR 20-300 mg/dL 139.4 Creatinine,Ur ine,Ran LAB UALBR 0.0-23.0 mg/L <12.0 Albumin Urine Random LAB UALBCR 0-30 mg/g Not Albumin/Creat calculated Ratio Performed By: #### UACR #### [facility] [employer] [address] [place], [place] [address] HEMOGLOBIN A1C Collected: 08/21/2017 Status: F Source: [place] 9:51 AM [facility] REPOSITORY TYPE CODE TESTS RESULT OUT OF REFERENCE UNITS RANGE LAB HGBA1C 4.3-5.6 % High Hemoglobin A1c 6.9 LAB HBA0 mg/dL Est. Average Glucose 151 Result Comment: eAG: (Estimated average glucose) is a calculated value from HgbA1c and is real estate representative of the average blood glucose level in the last 2-3 month period. Performed By: #### HBA1C, LIPB #### [facility] [employer] [address] [place], [place] [address] LIPID PANEL, BASIC Collected: 08/21/2017 Status: F Source: [place] 9:51 AM [facility] REPOSITORY TYPE CODE TESTS RESULT OUT OF REFERENCE UNITS RANGE LAB CHOL <200 mg/dL Cholesterol 171 Result Comment: <200 mg/dL, Desirable 200-239 mg/dL, Borderline high >239 mg/dL, High LAB TRIGLY <150 mg/dL Triglyceride 79 Result Comment: <150 mg/dL, Normal 150-199 mg/dL, Borderline high 200-499 mg/dL, High >499 mg/dL, Very high LAB HDL >39 mg/dL HDL-Cholesterol 100 Result Comment: 40-59 mg/dL, Acceptable >59 mg/dL, High: Negative risk factor for coronary heart disease <40 mg/dL, Low: Positive risk factor for coronary heart disease LAB LDL <100 mg/dL LDL-Cholesterol 55 Result Comment: <100 mg/dL, Optimal 100-129 mg/dL, Near optimal/above optimal 130-159 mg/dL, Borderline high 160-189 mg/dL, High >189 mg/dL, Very high Secondary prevention optimal LDL Cholesterol levels are recommended to be < 70 mg/dL LAB NONHDL <130 mg/dL Non HDL Cholesterol 71 Result Comment: <130 mg/dL, Optimal 130-159 mg/dL, Near optimal/above optimal 160-189 mg/dL, Borderline high 190-219 mg/dL, High >219 mg/dL, Very high Secondary prevention optimal non HDL Cholesterol levels are recommended to be < 100 mg/dL LAB FT hrs Fasting Time 0 LAB VLDL <30 mg/dL VLDL Cholesterol 16 LAB TCHDL <5.10 TC:HDL Ratio 1.71 LAB LDLHDL <2.54 LDL:HDL Ratio 0.55 Result Comment: Reference: 1. National Cholesterol Education Program ATP III Guideline At-A-Glance Quick Desk Reference: National Heart, Lung, and Blood [place]. National Institutes of Health. 2001: NIH Publication No. 01-3305. 2. An International Atherosclerosis Society position paper: global recommendations for the management of dyslipidemia: executive summary, Atherosclerosis. 2014: 232(2):410-413. Performed By: #### HBA1C, LIPB #### [facility] [address] [address] PROGRESS Observed: 08/14/2017 Status: COMPLETED Source: [place] 2:34 PM [facility] REPOSITORY HNO ID: [id number] Author: Daniel Montalvo Service: (none) Author Type: Physician Type: Progress Notes Filed: 08/14/2017 2:35 PM Note Text: She should continue low molecular weight heparin ( Lovenox 1mg/kg sq every 12 hours ) Please adjust dose to her current weight. Daniel Montalvo MD PROGRESS Observed: 08/14/2017 Status: COMPLETED Source: [place] 1:39 PM [facility] REPOSITORY HNO ID: [id number] Author: Leni Mcbride Service: (none) Author Type: Physician Truck Repair Supervisor Type: Progress Notes Filed: 08/14/2017 2:04 PM Note Text: [facility] [place], 08/14/17: INTERVAL HISTORY: The patient is here for follow up of asthma. Since the last Pulmonary Clinic visit, the patient was seen in on 08/07/17 secondary to increase in cough, fevers, and gurgling in throat. CXR revealed bibasilar atelectasis versus infiltrate. Patient treated with Doxycycline 100 mg twice daily, . Today, he states he is feeling much better. The patient has been compliant with therapy recommended at the last visit. Improved cough. Clear sputum. No hemoptysis. No pleuritic chest pain. No fevers or chills. No body aches. No wheezing. Exertional dyspnea stable. I am a doer. 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 Walks dog daily. No nocturnal awakenings. Twice daily nebulized treatments daily with two times daily rescue bronchodilator use. Using a cool mist humidifier. No disruption in taste or voice associated with use of inhaled corticosteroid. No tremor, palpitations, or muscle cramping associated with bronchodilator inhalation. PMH: Reviewed with patient today. No changes. FAMH: Reviewed with patient today. No changes. SOCH: No changes. ROS: General: Generally feels better. Appetite good. Weight stable. Eyes, Ears, nose, throat: No post nasal drip, rhinorrhea, purulent nasal discharge, epistaxis, hoarseness. Vision stable. Cardiac: No angina, edema, orthopnea. GI: No heartburn, dysphagia, diarrhea. Uro/PUMP ERECTOR: No dysuria, hesitancy, nocturia. Musculoskeletal: No pain. Neuro: No headache, focal weakness, tremor. Reports short- term memory loss. Evaluated by PCP. Skin: No rash. Otherwise negative. Immunization History Administered Date(s) Administered Influenza Seasonal - High Dose - Age 65+ 01/25/2014 01/20/2016 01/30/2017 Influenza Seasonal Inj Age 3+ 02/01/2015 Influenza Vaccine, Split-Non Spec 03/17/2006 03/17/2007 03/23/2008 02/11/2009 03/08/2010 02/16/2011 02/21/2012 01/21/2013 Pneumococcal-13 Vac Conjugate 02/22/2015 10/10/2015 Pneumovax 06/04/2000 09/17/2010 TD Adult 11/10/2006 Tetanus Diphtheria Booster (Age >7) Pres Free 02/22/2016 Zostavax 04/01/2011 Allergies were verified and updated, and medications were reconciled with the patient at this visit. PHYSICAL EXAMINATION: BP 106/64 Pulse 107 Resp 19 Wt 214 lb (97.1kg) SpO2 95% Gen: No acute distress. Cooperative with examination. ENT: Sclerae clear. EOMI. Nares clear. Oral hygeine/dentition good. Pharynx clear. Resp: No stridor, accessory respiratory muscle use, supra- sternal or intercostal retractions. Course breath sounds with wheezing, left > right. No crackles, rubs. CV: Regular rythm. Heart tones normal. Radial pulses normal. Abd: Non distended. MSK: No kyphoscoliosis, joint deformities. Ext: Warm and well perfused. No clubbing, cyanosis, edema. Skin: Color normal. Texture normal. No rash, eczema, urticaria. Neuro: Mental status normal. Affect normal. Muscle tone normal. No tremor. DATA REVIEW: CXR, 08/07/17 IMPRESSION: Bibasilar atelectasis versus infiltrates, worse compared to prior study. RESULT: Lines, tubes, and devices: ?None. Lungs and pleura: Small lung volume. ?Bibasilar atelectasis versus infiltrates, worse compared to prior study. ?There are multiple calcified and noncalcified pleural plaques bilaterally. ?No pleural effusions or pneumothorax. ?Patient's chin overlying the upper chest. Cardiomediastinal silhouette: ?The cardiac silhouette and mediastinal contour appear unchanged. Other: ?There are suture anchors overlying the left humeral head. IMPRESSION and RECOMMENDATIONS: 1. Bilateral pulmonary infiltrates on CXR. -Complete course of Doxycycline. -Patient symptomatically improved. CXR ordered by PCP office. Further recommendations to follow. ? 2. Asthma, severe persistent with acute exacerbation. -Start Prednisone taper as directed. -Continue Mucinex 1 tablet twice daily. -Continue Advair 2 inhalations twice daily and Spiriva 1 inhalation in the morning. Rinse mouth afterwards. -Albuterol rescue inhaler 2 inhalations up to every 4 hours as needed for shortness of breath/wheezing. You may use your rescue inhaler prior to increased activity and exertion. -Up to date on influenza and pneumonia vaccinations. ?? 3. Pulmonary Embolism -Started Xarelto 01/28/17. Will stay on for 6 months (July 2017). At that time, we will do hypercoagulable studies. -PE may have been secondary to Zolair use, however, it is not definite. No other risk factors, such as travel, trauma, or cancer. -Will consult Dr. Montalvo for further recommendations and possible workup. ?? 4. Pulmonary Hypertension, multifactorial - Echo 05/02/[address] Verma. Improved right ventricular strain. - I reviewed the pathophysiology of asthma, NIH guidelines for evaluation and management, and mechanisms of action and side effects of medical therapy (ICS, bronchodilators) with the patient. I addressed the questions of the patient, and he expressed understanding and acceptance of my answers. Leni Mcbride PA-C [facility] [place] [facility] [place] [address] [phone] ALEJANDRA Observed: 08/14/2017 Status: COMPLETED Source: [place] 1:30 PM [facility] REPOSITORY Office Visit (PULMWS) CARISSA YIP ([id number]) 1940 M Date Time Provider Department 08/14/17 1:30 PM LENI MCBRIDE During your visit today, we recorded the following information about you: Pulse Respiration Blood pressure Weight 107/minute 19/minute 106/64 97.1 kg Leni Mcbride PA-C 08/14/2017 2:04 PM S[address] [facility] [place], 08/14/17: INTERVAL HISTORY: The patient is here for follow up of asthma. Since the last Pulmonary Clinic visit, the patient was seen in on 08/07/17 secondary to increase in cough, fevers, and ANDquot;gurgling in throatANDquot;. CXR revealed bibasilar atelectasis versus infiltrate. Patient treated with Doxycycline 100 mg twice daily, . Today, he states he is feeling much better. The patient has been compliant with therapy recommended at the last visit. Improved cough. Clear sputum. No hemoptysis. No pleuritic chest pain. No fevers or chills. No body aches. No wheezing. Exertional dyspnea stable. ANDquot;I am a doerANDquot;. 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 Walks dog daily. No nocturnal awakenings. Twice daily nebulized treatments daily with two times daily rescue bronchodilator use. Using a cool mist humidifier. No disruption in taste or voice associated with use of inhaled corticosteroid. No tremor, palpitations, or muscle cramping associated with bronchodilator inhalation. PMH: Reviewed with patient today. No changes. FAMH: Reviewed with patient today. No changes. SOCH: No changes. ROS: General: Generally feels better. Appetite good. Weight stable. Eyes, Ears, nose, throat: No post nasal drip, rhinorrhea, purulent nasal discharge, epistaxis, hoarseness. Vision stable. Cardiac: No angina, edema, orthopnea. GI: No heartburn, dysphagia, diarrhea. Uro/PUMP ERECTOR: No dysuria, hesitancy, nocturia. Musculoskeletal: No pain. Neuro: No headache, focal weakness, tremor. Reports short- term memory loss. Evaluated by PCP. Skin: No rash. Otherwise negative. Immunization History Administered Date(s) Administered Influenza Seasonal - High Dose - Age 65+ 01/25/2014 01/20/2016 01/30/2017 Influenza Seasonal Inj Age 3+ 02/01/2015 Influenza Vaccine, Split-Non Spec 03/17/2006 03/17/2007 03/23/2008 02/11/2009 03/08/2010 02/16/2011 02/21/2012 01/21/2013 Pneumococcal-13 Vac Conjugate 02/22/2015 10/10/2015 Pneumovax 06/04/2000 09/17/2010 TD Adult 11/10/2006 Tetanus Diphtheria Booster (Age ANDgt;7) Pres Free 02/22/2016 Zostavax 04/01/2011 Allergies were verified and updated, and medications were reconciled with the patient at this visit. PHYSICAL EXAMINATION: BP 106/64 Pulse 107 Resp 19 Wt 214 lb (97.1kg) SpO2 95% Gen: No acute distress. Cooperative with examination. ENT: Sclerae clear. EOMI. Nares clear. Oral hygeine/dentition good. Pharynx clear. Resp: No stridor, accessory respiratory muscle use, supra- sternal or intercostal retractions. Course breath sounds with wheezing, left ANDgt; right. No crackles, rubs. CV: Regular rythm. Heart tones normal. Radial pulses normal. Abd: Non distended. MSK: No kyphoscoliosis, joint deformities. Ext: Warm and well perfused. No clubbing, cyanosis, edema. Skin: Color normal. Texture normal. No rash, eczema, urticaria. Neuro: Mental status normal. Affect normal. Muscle tone normal. No tremor. DATA REVIEW: CXR, 08/07/17 IMPRESSION: Bibasilar atelectasis versus infiltrates, worse compared to prior study. RESULT: Lines, tubes, and devices: ?None. Lungs and pleura: Small lung volume. ?Bibasilar atelectasis versus infiltrates, worse compared to prior study. ?There are multiple calcified and noncalcified pleural plaques bilaterally. ?No pleural effusions or pneumothorax. ?Patient's chin overlying the upper chest. Cardiomediastinal silhouette: ?The cardiac silhouette and mediastinal contour appear unchanged. Other: ?There are suture anchors overlying the left humeral head. IMPRESSION and RECOMMENDATIONS: 1. Bilateral pulmonary infiltrates on CXR. -Complete course of Doxycycline. -Patient symptomatically improved. CXR ordered by PCP office. Further recommendations to follow. ? 2. Asthma, severe persistent with acute exacerbation. -Start Prednisone taper as directed. -Continue Mucinex 1 tablet twice daily. -Continue Advair 2 inhalations twice daily and Spiriva 1 inhalation in the morning. Rinse mouth afterwards. -Albuterol rescue inhaler 2 inhalations up to every 4 hours as needed for shortness of breath/wheezing. You may use your rescue inhaler prior to increased activity and exertion. -Up to date on influenza and pneumonia vaccinations. ?? 3. Pulmonary Embolism -Started Xarelto 01/28/17. Will stay on for 6 months (July 2017). At that time, we will do hypercoagulable studies. -PE may have been secondary to Zolair use, however, it is not definite. No other risk factors, such as travel, trauma, or cancer. -Will consult Dr. Montalvo for further recommendations and possible workup. ?? 4. Pulmonary Hypertension, multifactorial - Echo 05/02/[address] Verma. Improved right ventricular strain. - I reviewed the pathophysiology of asthma, NIH guidelines for evaluation and management, and mechanisms of action and side effects of medical therapy (ICS, bronchodilators) with the patient. I addressed the questions of the patient, and he expressed understanding and acceptance of my answers. Leni Mcbride PA-C [facility] Res[facility] [place] [address] [address] Leni Mcbride PA-C 08/14/2017 2:03 PM Signed 1. Bilateral pulmonary infiltrates on CXR. -Complete course of Doxycycline. -Patient symptomatically improved. CXR ordered by PCP office. Further recommendations to follow. ? 2. Asthma, severe persistent with acute exacerbation. -Start Prednisone taper as directed. -Continue Mucinex 1 tablet twice daily. -Continue Advair 2 inhalations twice daily and Spiriva 1 inhalation in the morning. Rinse mouth afterwards. -Albuterol rescue inhaler 2 inhalations up to every 4 hours as needed for shortness of breath/wheezing. You may use your rescue inhaler prior to increased activity and exertion. -Up to date on influenza and pneumonia vaccinations. ?? 3. Pulmonary Embolism -Started Xarelto 01/28/17. Will stay on for 6 months (July 2017). At that time, we will do hypercoagulable studies. -PE may have been secondary to Zolair use, however, it is not definite. No other risk factors, such as travel, trauma, or cancer. -Will consult Dr. Montalvo for further recommendations and possible workup. ?? 4. Pulmonary Hypertension, multifactorial - Echo 05/02/[address] Verma. Improved right ventricular strain. Daniel Montalvo MD 08/14/2017 2:35 PM Signed She should continue low molecular weight heparin ( Lovenox 1mg/kg sq every 12 hours ) Please adjust dose to her current weight. Daniel Montalvo MD Referring Provider: LENI MCBRIDE [[id number]] Allergies As of Date: 08/14/2017 Noted Allergy Reaction INDOCIN (INDOMETHACIN SODIUM) 04/01/2011 14 - Other: See Comments Comments: Wheezing, can take naprosyn PERCOCET (OXYCODONE-ACETAMINOPHEN)01/08/2005 9 - Itching SEASONAL ALLERGIES 11/12/2012 14 - Other: See Comments Comments: Cat, Goats, Dust mites, molds, trees, grasses, weed, ragweed Date Reviewed: 08/14/2017 Reviewed by: Melissa Kumar LPN - Fully Assessed Reason for Visit: Established Patient [175] Cmt: 3 month follow up asthma/PE Primary Visit Diagnosis:Severe persistent asthma with acute exacerbation [J45.51] Other Visit Diagnoses:Other pulmonary embolism without acute cor pulmonale, unspecified chronicity (HCC) [I26.99] Bilateral pulmonary infiltrates on chest x-ray [R91.8] Pulmonary hypertension [I27.20] Order(s):predniSONE (DELTASONE) 10 mg tablet4 tablets daily for 3 days, 3 tablets daily for 3 days, 2 tablets daily for 3 days, 1 tablet daily for 3 days.Disp: 30 tabletRfl: 0 Prescriptions as of 08/14/2017 Sig: PREDNISONE 10 MG TABLET 4 tablets daily for 3 days, 3* DOXYCYCLINE HYCLATE 100 MG TA* Take 1 tablet by mouth twice * ADVAIR HFA 230 MCG-21 MCG/ACT* take 2 inhalations by mouth t* RIVAROXABAN 20 MG TABLET Take 1 tablet by mouth daily * OMEPRAZOLE 20 MG CAPSULE,ALEX* Take 1 capsule by mouth daily* LISINOPRIL 20 MG TABLET Take 1 tablet by mouth once d* SERTRALINE 100 MG TABLET Take 1 tablet by mouth twice * ATORVASTATIN 10 MG TABLET take 1 tablet by mouth at bed* GUAIFENESIN ER 600 MG TABLET,* Take 1 tablet by mouth twice * LEFLUNOMIDE 10 MG TABLET Take 10 mg by mouth once christiano* VENTOLIN HFA 90 MCG/ACTUATION* inhale 2 puffs every 4 hours * SPIRIVA WITH HANDIHALER 18 MC* inhale the contents of one ca* NYSTATIN-TRIAMCINOLONE 100,00* Apply 1 application to affect* AZELASTINE 137 MCG (0.1 %) NA* instill 2 sprays into each no* IPRATROPIUM-ALBUTEROL 0.5 MG-* Inhale 3 mL as instructed fou* FLUTICASONE 50 MCG/ACTUATION * instill 2 sprays into each no* COMPOUNDED PRESCRIPTION Polypodium Leucotomos extract* MONTELUKAST 10 MG TABLET Take 1 tablet by mouth daily * EPINEPHRINE 0.3 MG/0.3 ML INJ* Inject 0.3 mL intramuscularly* X ADVAIR HFA 230 MCG-21 MCG/ACT* inhale 2 puffs as directed tw* ALBUTEROL SULFATE HFA 90 MCG/* Inhale 2 Puffs as instructed. POLYETHYLENE GLYCOL 3350 17 G* Take 17 g by mouth once daily* FERROUS SULFATE 325 MG (65 MG* Take one(1) tablet two(2) link* Patient taking differently: Take by mouth once daily. Ta* MULTIVITAMIN TABLET Take 1 tablet by mouth once d* IPRATROPIUM BROMIDE 0.02 % SO* 500 mcg (one ampule) nebulize* PRESERVISION AREDS 7,160 UNIT* Take one(1) tablet two(2) link* Problem List As Of Date 08/14/2017 Noted Resolved Asthma [J45.909] CHRONIC RHINITIS [J31.0] BPH without obstruction/lower urinary tract sym* ANXIETY STATE NOS [F41.1] 08/05/2014 Depression with anxiety [F41.8] Diverticulosis of colon (without mention of hem* 10/06/2012 ESOPHAGEAL REFLUX [K21.9] Internal hemorrhoids without mention of complic* 08/30/2010 Malignant neoplasm of prostate (HCC) [C61] INVALID FOR*08/05/2014 MACULAR DEGENERATION NOS [H35.30] Other specified iron deficiency anemias [D50.8] INVALID FOR*08/30/2010 Impaired fasting blood sugar [R73.01] INVALID FOR* Hyperlipidemia [E78.5] INVALID FOR* Personal history of colonic polyps [Z86.010] INVALID FOR*09/30/2011 More... FAMILY HX COLON CANCER [Z80.0] INVALID FOR* PULMONARY NODULES [J98.4] INVALID FOR*10/06/2012 More... 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] INVALID FOR* Essential hypertension [I10] INVALID FOR* Generalized osteoarthritis of multiple sites [M*INVALID FOR* Benign neoplasm of rectum and anal canal [D12.8*INVALID FOR*10/06/2012 Benign neoplasm of colon [D12.6] INVALID FOR* Gout [M10.9] INVALID FOR* Venous insufficiency of leg [I87.2] INVALID FOR* Iron deficiency anemia due to chronic blood los*INVALID FOR* Inflammatory polyarthropathy of multiple sites *INVALID FOR* Unsteady gait [R26.81] INVALID FOR* Uncomplicated severe persistent asthma [J45.50] INVALID FOR* Other pulmonary embolism without acute cor pulm*INVALID FOR* Pulmonary hypertension (HCC) [I27.20] INVALID FOR* Other instructions from your clinician: 1. Bilateral pulmonary infiltrates on CXR. -Complete course of Doxycycline. -Patient symptomatically improved. CXR ordered by PCP office. Further recommendations to follow. ? 2. Asthma, severe persistent with acute exacerbation. -Start Prednisone taper as directed. -Continue Mucinex 1 tablet twice daily. -Continue Advair 2 inhalations twice daily and Spiriva 1 inhalation in the morning. Rinse mouth afterwards. -Albuterol rescue inhaler 2 inhalations up to every 4 hours as needed for shortness of breath/wheezing. You may use your rescue inhaler prior to increased activity and exertion. -Up to date on influenza and pneumonia vaccinations. ?? 3. Pulmonary Embolism -Started Xarelto 01/28/17. Will stay on for 6 months (July 2017). At that time, we will do hypercoagulable studies. -PE may have been secondary to Zolair use, however, it is not definite. No other risk factors, such as travel, trauma, or cancer. -Will consult Dr. Montalvo for further recommendations and possible workup. ?? 4. Pulmonary Hypertension, multifactorial - Echo 05/02/[address] Verma. Improved right ventricular strain. Prescriptions ordered this encounter Disp Refills Start End PREDNISONE 10 MG TABLET 30 t* 0 08/14/2017 Si tablets daily for 3 days, 3 tablets daily for 3 days, 2 tablets daily for 3 days, 1 tablet daily for 3 days. Disposition: Return in about 6 weeks (around 09/25/2017). Follow-up and Disposition History Recorded Encounter Status:Closed by LENI MCBRIDE on 08/14/17 KELSEY Observed: 08/12/2017 Status: COMPLETED Source: [place] 12:00 AM [facility] REPOSITORY Patient Outreach ([facility]) CARISSA YIP ([id number]) 1940 M Date Time Provider Department 08/12/17 [facility] During your visit today, we recorded the following information about you: Allergies As of Date: 08/12/2017 Noted Allergy Reaction INDOCIN (INDOMETHACIN SODIUM) 04/01/2011 14 - Other: See Comments Comments: Wheezing, can take naprosyn PERCOCET (OXYCODONE-ACETAMINOPHEN)01/08/2005 9 - Itching SEASONAL ALLERGIES 11/12/2012 14 - Other: See Comments Comments: Cat, Goats, Dust mites, molds, trees, grasses, weed, ragweed Date Reviewed: 08/11/2017 Reviewed by: Eda Toney (Cassie) CASSIE Landa - Fully Assessed Visit Diagnosis:Medication management [Z79.899] Order(s):ALBUMIN/CREAT RATIO RND UR [SQUACR] Order #: [id number] FUTURE HGB A1C [RVEVJ2G] Order #: [id number] FUTURE LIPID PANEL BASIC [SQLIPB] Order #: [id number] FUTURE Prescriptions as of 08/12/2017 Sig: DOXYCYCLINE HYCLATE 100 MG TA* Take 1 tablet by mouth twice * ADVAIR HFA 230 MCG-21 MCG/ACT* take 2 inhalations by mouth t* X RIVAROXABAN 20 MG TABLET Take 1 tablet by mouth daily * OMEPRAZOLE 20 MG CAPSULE,ALEX* Take 1 capsule by mouth daily* LISINOPRIL 20 MG TABLET Take 1 tablet by mouth once d* X SERTRALINE 100 MG TABLET Take 1 tablet by mouth twice * ATORVASTATIN 10 MG TABLET take 1 tablet by mouth at bed* X GUAIFENESIN ER 600 MG TABLET,* Take 1 tablet by mouth twice * LEFLUNOMIDE 10 MG TABLET Take 10 mg by mouth once christiano* VENTOLIN HFA 90 MCG/ACTUATION* inhale 2 puffs every 4 hours * X SPIRIVA WITH HANDIHALER 18 MC* inhale the contents of one ca* X NYSTATIN-TRIAMCINOLONE 100,00* Apply 1 application to affect* X AZELASTINE 137 MCG (0.1 %) NA* instill 2 sprays into each no* IPRATROPIUM-ALBUTEROL 0.5 MG-* Inhale 3 mL as instructed fou* X FLUTICASONE 50 MCG/ACTUATION * instill 2 sprays into each no* X COMPOUNDED PRESCRIPTION Polypodium Leucotomos extract* Patient not taking: Reported on 11/18/2017 X MONTELUKAST 10 MG TABLET Take 1 tablet by mouth daily * EPINEPHRINE 0.3 MG/0.3 ML INJ* Inject 0.3 mL intramuscularly* ALBUTEROL SULFATE HFA 90 MCG/* Inhale 2 Puffs as instructed. POLYETHYLENE GLYCOL 3350 17 G* Take 17 g by mouth once daily* X FERROUS SULFATE 325 MG (65 MG* Take one(1) tablet two(2) link* Patient taking differently: Take 325 mg by mouth twice da* X MULTIVITAMIN TABLET Take 1 tablet by mouth once d* IPRATROPIUM BROMIDE 0.02 % SO* 500 mcg (one ampule) nebulize* PRESERVISION AREDS 7,160 UNIT* Take one(1) tablet two(2) link* Problem List As Of Date 08/12/2017 Noted Resolved Asthma [J45.909] CHRONIC RHINITIS [J31.0] BPH without obstruction/lower urinary tract sym* ANXIETY STATE NOS [F41.1] 08/05/2014 Depression with anxiety [F41.8] Diverticulosis of colon (without mention of hem* 10/06/2012 ESOPHAGEAL REFLUX [K21.9] Internal hemorrhoids without mention of complic* 08/30/2010 Malignant neoplasm of prostate (HCC) [C61] INVALID FOR*08/05/2014 MACULAR DEGENERATION NOS [H35.30] Other specified iron deficiency anemias [D50.8] INVALID FOR*08/30/2010 Impaired fasting blood sugar [R73.01] INVALID FOR* Hyperlipidemia [E78.5] INVALID FOR* Personal history of colonic polyps [Z86.010] INVALID FOR*09/30/2011 More... FAMILY HX COLON CANCER [Z80.0] INVALID FOR* PULMONARY NODULES [J98.4] INVALID FOR*10/06/2012 More... 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] INVALID FOR* Essential hypertension [I10] INVALID FOR* Generalized osteoarthritis of multiple sites [M*INVALID FOR* Benign neoplasm of rectum and anal canal [D12.8*INVALID FOR*10/06/2012 Benign neoplasm of colon [D12.6] INVALID FOR* Gout [M10.9] INVALID FOR* Venous insufficiency of leg [I87.2] INVALID FOR* Iron deficiency anemia due to chronic blood los*INVALID FOR* Inflammatory polyarthropathy of multiple sites *INVALID FOR* Unsteady gait [R26.81] INVALID FOR* Uncomplicated severe persistent asthma [J45.50] INVALID FOR* Other pulmonary embolism without acute cor pulm*INVALID FOR* Pulmonary hypertension (HCC) [I27.20] INVALID FOR* Encounter Status:Closed by EPIC, PRODUSER on 02/27/18 PROGRESS Observed: 08/11/2017 Status: COMPLETED Source: [place] 2:02 PM [facility] [place] REPOSITORY HNO ID: [id number] Author: Seema Henderson) ZEE Lovett.PETROS Service: (none) Author Type: Nurse Practitioner Type: Progress Notes Filed: 08/11/2017 4:52 PM Note Text: 08/11/2017 Patient presents with: Recheck: urgent care follow SUBJECTIVE: This is a 76 year old that is here today for Above Complaints. Seen in UC on 08/07 for cough and wheezing. CXR done and showed bibasilar atelectasis vs infiltrates. Tx'ed with doxycycline 100 mg twice daily. Is on 5th day of treatment. Today is feeling much better. Denies fever, chills, body aches, increased or worsening SOB, dyspnea, hemoptysis, chest pain, or palpitations. Positive for productive cough a green/yellow sputum. Continues to use Spiriva and Advair as directed. Has a albuterol rescue inhaler and has duoneb for Aerolized treatments at home. IS back to walking his dog daily and is tolerating well. Is has a hx of asthma and is currently being treated for a PE. Is followed by pulmonology for asthma and PE. PAST MEDICAL HISTORY Diagnosis Date - Anxiety state, unspecified - Benign neoplasm of colon - Chronic rhinitis - Colon polyp 10/2014 - Depressive disorder, not elsewhere classified - Diverticulosis of colon (without mention of hemorrhage) - Esophageal reflux - Family history of malignant neoplasm of gastrointestinal tract - GENERAL OSTEOARTHROSIS 04/08/2008 - Gout 04/01/2011 - HYPERGLYCEMIA 07/19/2005 - HYPERLIPIDEMIA NEC/NOS 07/19/2005 - HYPERTENSION NOS 09/03/2007 - Hypertrophy of prostate without urinary obstruction and other lower urinary tract symptoms (LUTS) - Impaired fasting blood sugar 07/19/2005 - Internal hemorrhoids without mention of complication - IRON DEFIC ANEMIA NEC 07/19/2005 - Macular degeneration (senile) of retina, unspecified - MALIGN NEOPL PROSTATE 05/23/2005 - Other pulmonary embolism without acute cor pulmonale (HCC) 01/27/2017 - Personal history of colonic polyps - Pulmonary embolism (HCC) - PULMONARY NODULES 06/03/2006 - Rosacea 02/25/2007 - Skin cancer of face [facility]. - Unspecified asthma(493.90) ALLERGIES Indocin [Indomethacin Sodium]; Percocet [Oxycodone-Acetaminophen]; Seasonal Allergies MEDICATIONS Current Outpatient Prescriptions: doxycycline (VIBRA-TABS) 100 mg tablet Take 1 tablet by mouth twice daily for 10 days. ADVAIR HFA 230-21 mcg/actuation inhaler take 2 inhalations by mouth twice a day Rinse mouth after use rivaroxaban (XARELTO) 20 mg tablet Take 1 tablet by mouth daily with dinner. omeprazole (PRILOSEC) 20 mg capsule Take 1 capsule by mouth daily before breakfast. 1/2 hr before meal. lisinopril (ZESTRIL, PRINIVIL) 20 mg tablet Take 1 tablet by mouth once daily. sertraline (ZOLOFT) 100 mg tablet Take 1 tablet by mouth twice daily. atorvastatin (LIPITOR) 10 mg tablet take 1 tablet by mouth at bedtime guaiFENesin (MUCINEX) 600 mg 12 hr tablet Take 1 tablet by mouth twice daily. leflunomide (ARAVA) 10 mg tablet Take 10 mg by mouth once daily. VENTOLIN HFA 90 mcg/actuation inhaler inhale 2 puffs every 4 hours if needed SPIRIVA WITH HANDIHALER 18 mcg inhalation capsule inhale the contents of one capsule in the handihaler once daily nystatin-triamcinolone (MYCOLOG II) cream Apply 1 application to affected area twice daily as needed. Genital rash. azelastine (ASTELIN,ASTEPRO) 0.1% nasal spray instill 2 sprays into each nostril twice a day ipratropium-albuterol (DUONEB) 0.5 mg-3 mg(2.5 mg base)/3 mL nebu Inhale 3 mL as instructed four times daily as needed. by nebulizer over 5 to 15 minutes. fluticasone (FLONASE) 50 mcg/actuation nasal spray instill 2 sprays into each nostril twice a day COMPOUNDED PRESCRIPTION Polypodium Leucotomos extract (Daily Defense). Take 2 capsules once a day. 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 montelukast (SINGULAIR) 10 mg tablet Take 1 tablet by mouth daily at bedtime. EPINEPHrine (EPIPEN) 0.3 mg/0.3 mL auto-injector Inject 0.3 mL intramuscularly as needed. albuterol HFA (PROVENTIL HFA) 90 mcg/actuation inhaler Inhale 2 Puffs as instructed. polyethylene glycol 3350 (MIRALAX, GLYCOLAX) 17 gram/dose powder Take 17 g by mouth once daily. Take one (1) capful in 8oz of liquid each day. ferrous sulfate 325 mg (65 mg iron) tablet Take one(1) tablet two(2) times daily. (Patient taking differently: Take by mouth once daily. Take one(1) tablet two(2) times daily.) multivitamin tablet Take 1 tablet by mouth once daily. ipratropium (ATROVENT) 0.02 % nebulizer solution 500 mcg (one ampule) nebulized four times a day as needed. Vitamin A-Vit C-Vit E-Zinc-Cu (OCUVITE PRESERVISION) ORAL Tab Take one(1) tablet two(2) times daily. No current facility-administered medications for this visit. Medications and allergies reviewed by this provider. 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 Social History Main Topics Smoking status: Never Smoker Smokeless status: Never Used Comment: Father smoked in childhood home. No household smoke exposure since. 05/2014. Alcohol use: No Drug use: No Social History Narrative 2017: Lives with spouse w/ depression. No longer driving since 2013 due to macular degeneration. drives. Ambulatory with cane. Dyspnea on moderate exertion. REVIEW OF SYSTEMS GENERAL: No weight loss, malaise or fevers NECK: Negative for lumps, goiter, pain and significant neck swelling RESPIRATORY: Negative for cough, hemoptysis, wheezing, COPD, dyspnea or shortness of breath CARDIOVASCULAR: Negative for chest pain, leg swelling, hypertension, CHF or palpitations GI: No nausea, vomiting, or diarrhea All other reviewed and negative other than HPI. OBJECTIVE: BP 120/68 (BP Site: Left Arm, BP Position: Sitting, BP Cuff Size: Large Adult) Pulse 68 Resp 18 Wt 96.6 kg (213 lb 0.6 oz) BMI 34.39 kg/m2. Vital signs reviewed by this provider. APPEARANCE Well appearing, alert, in no acute distress, well-hydrated, well nourished. NECK Supple, no adenopathy; thyroid symmetric, normal size, no bruits HEART RRR with normal S1 and S2, no murmurs, no gallops, no JVD appreciated LUNG clear to auscultation. Able to peak in full sentences EXTREMITIES Extremities normal, No deformities, No skin discoloration, No edema and Normal pulses bilaterally. ASSESSMENT/PLAN: 1. Bilateral pulmonary infiltrates on chest x-ray - ICD9: 793.19, ICD10: R91.8 - improving on doxy - no red flag exam findings - red flag symptoms discussed, patient verbalizes understanding - is to follow with pulmonology for asthma - will redo CXR in two weeks- as he has had pneumonia twice this year - XR CHEST 2V FRONTAL/LAT - keep appointment with Dr. Larios in August, RTO sooner if needed or to ER with red flag symptoms Seema Lovett APRN.CNP Prescription instructions reviewed with patient as applicable. Patient advised if symptoms do not improve or if symptoms worsen sooner, to contact their primary care physician. Potential red flag symptoms discussed with the patient. Reviewed appropriate action plan to take if red flag symptoms occur. Patient agreeable to treatment plan. CNOV Observed: 08/11/2017 Status: COMPLETED Source: [place] 2:00 PM [facility] REPOSITORY Office Visit (FAMPWS) CARISSA YIP ([id number]) 1940 M Date Time Provider Department 08/11/17 2:00 PM SEEMA LOVETT (PETROS) DIXIE During your visit today, we recorded the following information about you: Temperature Pulse Respiration Blood pressure 98.3 degrees 68/minute 18/minute 120/68 Weight 96.6 kg Seema Lovett APRN.CNP, APRN.CNP 08/11/2017 4:52 PM Signed 08/11/2017 Patient presents with: Recheck: urgent care follow SUBJECTIVE: This is a 76 year old that is here today for Above Complaints. Seen in on 08/07 for cough and wheezing. CXR done and showed bibasilar atelectasis vs infiltrates. Tx'ed with doxycycline 100 mg twice daily. Is on 5th day of treatment. Today is feeling much better. Denies fever, chills, body aches, increased or worsening SOB, dyspnea, hemoptysis, chest pain, or palpitations. Positive for productive cough a green/yellow sputum. Continues to use Spiriva and Advair as directed. Has a albuterol rescue inhaler and has duoneb for Aerolized treatments at home. IS back to walking his dog daily and is tolerating well. Is has a hx of asthma and is currently being treated for a PE. Is followed by pulmonology for asthma and PE. PAST MEDICAL HISTORY Diagnosis Date - Anxiety state, unspecified - Benign neoplasm of colon - Chronic rhinitis - Colon polyp 10/2014 - Depressive disorder, not elsewhere classified - Diverticulosis of colon (without mention of hemorrhage) - Esophageal reflux - Family history of malignant neoplasm of gastrointestinal tract - GENERAL OSTEOARTHROSIS 04/08/2008 - Gout 04/01/2011 - HYPERGLYCEMIA 07/19/2005 - HYPERLIPIDEMIA NEC/NOS 07/19/2005 - HYPERTENSION NOS 09/03/2007 - Hypertrophy of prostate without urinary obstruction and other lower urinary tract symptoms (LUTS) - Impaired fasting blood sugar 07/19/2005 - Internal hemorrhoids without mention of complication - IRON DEFIC ANEMIA NEC 07/19/2005 - Macular degeneration (senile) of retina, unspecified - MALIGN NEOPL PROSTATE 05/23/2005 - Other pulmonary embolism without acute cor pulmonale (HCC) 01/27/2017 - Personal history of colonic polyps - Pulmonary embolism (HCC) - PULMONARY NODULES 06/03/2006 - Rosacea 02/25/2007 - Skin cancer of face [facility]. - Unspecified asthma(493.90) ALLERGIES Indocin [Indomethacin Sodium]; Percocet [Oxycodone-Acetaminophen]; Seasonal Allergies MEDICATIONS Current Outpatient Prescriptions: doxycycline (VIBRA-TABS) 100 mg tablet Take 1 tablet by mouth twice daily for 10 days. ADVAIR HFA 230-21 mcg/actuation inhaler take 2 inhalations by mouth twice a day Rinse mouth after use rivaroxaban (XARELTO) 20 mg tablet Take 1 tablet by mouth daily with dinner. omeprazole (PRILOSEC) 20 mg capsule Take 1 capsule by mouth daily before breakfast. 1/2 hr before meal. lisinopril (ZESTRIL, PRINIVIL) 20 mg tablet Take 1 tablet by mouth once daily. sertraline (ZOLOFT) 100 mg tablet Take 1 tablet by mouth twice daily. atorvastatin (LIPITOR) 10 mg tablet take 1 tablet by mouth at bedtime guaiFENesin (MUCINEX) 600 mg 12 hr tablet Take 1 tablet by mouth twice daily. leflunomide (ARAVA) 10 mg tablet Take 10 mg by mouth once daily. VENTOLIN HFA 90 mcg/actuation inhaler inhale 2 puffs every 4 hours if needed SPIRIVA WITH HANDIHALER 18 mcg inhalation capsule inhale the contents of one capsule in the handihaler once daily nystatin-triamcinolone (MYCOLOG II) cream Apply 1 application to affected area twice daily as needed. Genital rash. azelastine (ASTELIN,ASTEPRO) 0.1% nasal spray instill 2 sprays into each nostril twice a day ipratropium-albuterol (DUONEB) 0.5 mg-3 mg(2.5 mg base)/3 mL nebu Inhale 3 mL as instructed four times daily as needed. by nebulizer over 5 to 15 minutes. fluticasone (FLONASE) 50 mcg/actuation nasal spray instill 2 sprays into each nostril twice a day COMPOUNDED PRESCRIPTION Polypodium Leucotomos extract (Daily Defense). Take 2 capsules once a day. 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 montelukast (SINGULAIR) 10 mg tablet Take 1 tablet by mouth daily at bedtime. EPINEPHrine (EPIPEN) 0.3 mg/0.3 mL auto-injector Inject 0.3 mL intramuscularly as needed. albuterol HFA (PROVENTIL HFA) 90 mcg/actuation inhaler Inhale 2 Puffs as instructed. polyethylene glycol 3350 (MIRALAX, GLYCOLAX) 17 gram/dose powder Take 17 g by mouth once daily. Take one (1) capful in 8oz of liquid each day. ferrous sulfate 325 mg (65 mg iron) tablet Take one(1) tablet two(2) times daily. (Patient taking differently: Take by mouth once daily. Take one(1) tablet two(2) times daily.) multivitamin tablet Take 1 tablet by mouth once daily. ipratropium (ATROVENT) 0.02 % nebulizer solution 500 mcg (one ampule) nebulized four times a day as needed. Vitamin A-Vit C-Vit E-Zinc-Cu (OCUVITE PRESERVISION) ORAL Tab Take one(1) tablet two(2) times daily. No current facility-administered medications for this visit. Medications and allergies reviewed by this provider. 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 Social History Main Topics Smoking status: Never Smoker Smokeless status: Never Used Comment: Father smoked in childhood home. No household smoke exposure since. 05/2014. Alcohol use: No Drug use: No Social History Narrative 2017: Lives with spouse w/ depression. No longer driving since 2013 due to macular degeneration. drives. Ambulatory with cane. Dyspnea on moderate exertion. REVIEW OF SYSTEMS GENERAL: No weight loss, malaise or fevers NECK: Negative for lumps, goiter, pain and significant neck swelling RESPIRATORY: Negative for cough, hemoptysis, wheezing, COPD, dyspnea or shortness of breath CARDIOVASCULAR: Negative for chest pain, leg swelling, hypertension, CHF or palpitations GI: No nausea, vomiting, or diarrhea All other reviewed and negative other than HPI. OBJECTIVE: BP 120/68 (BP Site: Left Arm, BP Position: Sitting, BP Cuff Size: Large Adult) Pulse 68 Resp 18 Wt 96.6 kg (213 lb 0.6 oz) BMI 34.39 kg/m2. Vital signs reviewed by this provider. APPEARANCE Well appearing, alert, in no acute distress, well- hydrated, well nourished. NECK Supple, no adenopathy; thyroid symmetric, normal size, no bruits HEART RRR with normal S1 and S2, no murmurs, no gallops, no JVD appreciated LUNG clear to auscultation. Able to peak in full sentences EXTREMITIES Extremities normal, No deformities, No skin discoloration, No edema and Normal pulses bilaterally. ASSESSMENT/PLAN: 1. Bilateral pulmonary infiltrates on chest x-ray - ICD9: 793.19, ICD10: R91.8 - improving on doxy - no red flag exam findings - red flag symptoms discussed, patient verbalizes understanding - is to follow with pulmonology for asthma - will redo CXR in two weeks- as he has had pneumonia twice this year - XR CHEST 2V FRONTAL/LAT - keep appointment with Dr. Larios in August, RTO sooner if needed or to ER with red flag symptoms Seema Lovett APRN.SIGNAL OPERATOR Prescription instructions reviewed with patient as applicable. Patient advised if symptoms do not improve or if symptoms worsen sooner, to contact their primary care physician. Potential red flag symptoms discussed with the patient. Reviewed appropriate action plan to take if red flag symptoms occur. Patient agreeable to treatment plan. Referring Provider: ELEAZAR GUEVARA (IAN) [[id number]] Allergies As of Date: 08/11/2017 Noted Allergy Reaction INDOCIN (INDOMETHACIN SODIUM) 04/01/2011 14 - Other: See Comments Comments: Wheezing, can take naprosyn PERCOCET (OXYCODONE-ACETAMINOPHEN)01/08/2005 9 - Itching SEASONAL ALLERGIES 11/12/2012 14 - Other: See Comments Comments: Cat, Goats, Dust mites, molds, trees, grasses, weed, ragweed Date Reviewed: 08/11/2017 Reviewed by: Eda De Jesus LPN - Fully Assessed Reason for Visit: Recheck [92] Cmt: urgent care follow Primary Visit Diagnosis:Bilateral pulmonary infiltrates on chest x-ray [R91.8] Order(s):XR CHEST 2V FRONTAL/LAT [[id number]] Order #: [id number] FUTURE Prescriptions as of 08/11/2017 Sig: DOXYCYCLINE HYCLATE 100 MG TA* Take 1 tablet by mouth twice * ADVAIR HFA 230 MCG-21 MCG/ACT* take 2 inhalations by mouth t* RIVAROXABAN 20 MG TABLET Take 1 tablet by mouth daily * OMEPRAZOLE 20 MG CAPSULE,ALEX* Take 1 capsule by mouth daily* LISINOPRIL 20 MG TABLET Take 1 tablet by mouth once d* SERTRALINE 100 MG TABLET Take 1 tablet by mouth twice * ATORVASTATIN 10 MG TABLET take 1 tablet by mouth at bed* GUAIFENESIN ER 600 MG TABLET,* Take 1 tablet by mouth twice * LEFLUNOMIDE 10 MG TABLET Take 10 mg by mouth once christiano* VENTOLIN HFA 90 MCG/ACTUATION* inhale 2 puffs every 4 hours * SPIRIVA WITH HANDIHALER 18 MC* inhale the contents of one ca* NYSTATIN-TRIAMCINOLONE 100,00* Apply 1 application to affect* AZELASTINE 137 MCG (0.1 %) NA* instill 2 sprays into each no* IPRATROPIUM-ALBUTEROL 0.5 MG-* Inhale 3 mL as instructed fou* FLUTICASONE 50 MCG/ACTUATION * instill 2 sprays into each no* COMPOUNDED PRESCRIPTION Polypodium Leucotomos extract* MONTELUKAST 10 MG TABLET Take 1 tablet by mouth daily * EPINEPHRINE 0.3 MG/0.3 ML INJ* Inject 0.3 mL intramuscularly* ALBUTEROL SULFATE HFA 90 MCG/* Inhale 2 Puffs as instructed. POLYETHYLENE GLYCOL 3350 17 G* Take 17 g by mouth once daily* FERROUS SULFATE 325 MG (65 MG* Take one(1) tablet two(2) link* Patient taking differently: Take by mouth once daily. Ta* MULTIVITAMIN TABLET Take 1 tablet by mouth once d* IPRATROPIUM BROMIDE 0.02 % SO* 500 mcg (one ampule) nebulize* PRESERVISION AREDS 7,160 UNIT* Take one(1) tablet two(2) link* Problem List As Of Date 08/11/2017 Noted Resolved Asthma [J45.909] CHRONIC RHINITIS [J31.0] BPH without obstruction/lower urinary tract sym* ANXIETY STATE NOS [F41.1] 08/05/2014 Depression with anxiety [F41.8] Diverticulosis of colon (without mention of hem* 10/06/2012 ESOPHAGEAL REFLUX [K21.9] Internal hemorrhoids without mention of complic* 08/30/2010 Malignant neoplasm of prostate (HCC) [C61] INVALID FOR*08/05/2014 MACULAR DEGENERATION NOS [H35.30] Other specified iron deficiency anemias [D50.8] INVALID FOR*08/30/2010 Impaired fasting blood sugar [R73.01] INVALID FOR* Hyperlipidemia [E78.5] INVALID FOR* Personal history of colonic polyps [Z86.010] INVALID FOR*09/30/2011 More... FAMILY HX COLON CANCER [Z80.0] INVALID FOR* PULMONARY NODULES [J98.4] INVALID FOR*10/06/2012 More... 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] INVALID FOR* Essential hypertension [I10] INVALID FOR* Generalized osteoarthritis of multiple sites [M*INVALID FOR* Benign neoplasm of rectum and anal canal [D12.8*INVALID FOR*10/06/2012 Benign neoplasm of colon [D12.6] INVALID FOR* Gout [M10.9] INVALID FOR* Venous insufficiency of leg [I87.2] INVALID FOR* Iron deficiency anemia due to chronic blood los*INVALID FOR* Inflammatory polyarthropathy of multiple sites *INVALID FOR* Unsteady gait [R26.81] INVALID FOR* Uncomplicated severe persistent asthma [J45.50] INVALID FOR* Other pulmonary embolism without acute cor pulm*INVALID FOR* Pulmonary hypertension (HCC) [I27.20] INVALID FOR* Follow-up and Disposition History Recorded Encounter Status:Closed by LAWRENCELOGSEEMA RIVAS CNP on 08/11/17 XR CHEST 2V FRONTAL/LAT Observed: 08/07/2017 Status: F Source: [place] 11:13 AM [facility] REPOSITORY * * *Final Report* * * DATE OF EXAM: Aug 07 2017 11:13AM WOX [id number] - XR CHEST 2V FRONTAL/LAT / PROCEDURE REASON: Cough * * * * Physician Interpretation * * * * EXAMINATION: CHEST RADIOGRAPH (2 VIEW FRONTAL and LATERAL) Clinical History: Cough MQ: XC2_4 Comparison: Chest x-ray on 04/15/2017 RESULT: Lines, tubes, and devices: None. Lungs and pleura: Small lung volume. Bibasilar atelectasis versus infiltrates, worse compared to prior study. There are multiple calcified and noncalcified pleural plaques bilaterally. No pleural effusions or pneumothorax. Patient's chin overlying the upper chest. Cardiomediastinal silhouette: The cardiac silhouette and mediastinal contour appear unchanged. Other: There are suture anchors overlying the left humeral head. IMPRESSION: Bibasilar atelectasis versus infiltrates, worse compared to prior study. Orthotics Prosthetics Assistant: PSCB Transcribe Date/Time: Aug 07 2017 11:17A Dictated by : LURDES WESTFALL MD This examination was interpreted and the report reviewed and electronically signed by: LURDES WESTFALL MD on Aug 07 2017 11:18AM EST [id number] PROGRESS Observed: 08/07/2017 Status: COMPLETED Source: [place] 11:02 AM [facility] REPOSITORY HNO ID: [id number] Author: Keila Chen Service: (none) Author Type: (none) Type: Progress Notes Filed: 08/07/2017 11:13 AM Note Text: Radiology Service Progress Note PATIENT NAME: Carissa Yip DATE OF SERVICE: August 07, 2017 TIME: 11:03 AM PATIENT IDENTITY VERIFICATION COMPLETED USING TWO (2) METHODS: Patient confirmed name verbally and Date of . PATIENT GENDER DATA: Male PATIENT RELEVANT IMPLANT DATA REVIEWED: Not Applicable RADIOLOGY DEPARTMENT: General X-ray: Exam(s) Completed: Chest X-Ray PERIPHERAL IV DATA: Not applicable SIGNED BY: Keila Chen August 07, 2017 11:03 AM PROGRESS Observed: 08/07/2017 Status: COMPLETED Source: [place] 10:52 AM [facility] REPOSITORY HNO ID: [id number] Author: Eleazar Guevara (Pa) Service: (none) Author Type: Physician Truck Repair Supervisor Type: Progress Notes Filed: 08/07/2017 12:11 PM Note Text: Subjective HPI Pt presents with cough and wheezing for 6 days. He does have a fever here of 100.8, did not check at home. He does have asthma, was never a smoker. He does use a nebulizer, ventolin inhaler and Spiriva. He did have a PE in January but is on xarelto and has been taking his meds as directed. He does have chronic shortness of breath but feels worse now. No chest pain. No leg pain or swelling. No hx of heart failure. He had pneumonia 06/22. Review of Systems Constitutional: Positive for fever. HENT: Positive for congestion. Eyes: Negative. Respiratory: Positive for cough, sputum production, shortness of breath and wheezing. Cardiovascular: Negative. Gastrointestinal: Positive for diarrhea. Negative for vomiting. Genitourinary: Negative. Musculoskeletal: Negative. Skin: Negative. All other systems reviewed and are negative. PAST MEDICAL HISTORY Diagnosis Date - Anxiety state, unspecified - Benign neoplasm of colon - Chronic rhinitis - Colon polyp 10/2014 - Depressive disorder, not elsewhere classified - Diverticulosis of colon (without mention of hemorrhage) - Esophageal reflux - Family history of malignant neoplasm of gastrointestinal tract - GENERAL OSTEOARTHROSIS 04/08/2008 - Gout 04/01/2011 - HYPERGLYCEMIA 07/19/2005 - HYPERLIPIDEMIA NEC/NOS 07/19/2005 - HYPERTENSION NOS 09/03/2007 - Hypertrophy of prostate without urinary obstruction and other lower urinary tract symptoms (LUTS) - Impaired fasting blood sugar 07/19/2005 - Internal hemorrhoids without mention of complication - IRON DEFIC ANEMIA NEC 07/19/2005 - Macular degeneration (senile) of retina, unspecified - MALIGN NEOPL PROSTATE 05/23/2005 - Other pulmonary embolism without acute cor pulmonale (HCC) 01/27/2017 - Personal history of colonic polyps - Pulmonary embolism (HCC) - PULMONARY NODULES 06/03/2006 - Rosacea 02/25/2007 - Skin cancer of face [facility]. - Unspecified asthma(493.90) Current Outpatient Prescriptions: ADVAIR HFA 230-21 mcg/actuation inhaler take 2 inhalations by mouth twice a day Rinse mouth after use Disp: 3 Inhaler Rfl: 3 rivaroxaban (XARELTO) 20 mg tablet Take 1 tablet by mouth daily with dinner. Disp: 30 tablet Rfl: 0 omeprazole (PRILOSEC) 20 mg capsule Take 1 capsule by mouth daily before breakfast. 1/2 hr before meal. Disp: 90 capsule Rfl: 3 lisinopril (ZESTRIL, PRINIVIL) 20 mg tablet Take 1 tablet by mouth once daily. Disp: 90 tablet Rfl: 3 sertraline (ZOLOFT) 100 mg tablet Take 1 tablet by mouth twice daily. Disp: Rfl: atorvastatin (LIPITOR) 10 mg tablet take 1 tablet by mouth at bedtime Disp: 90 tablet Rfl: 3 guaiFENesin (MUCINEX) 600 mg 12 hr tablet Take 1 tablet by mouth twice daily. Disp: 60 tablet Rfl: 3 leflunomide (ARAVA) 10 mg tablet Take 10 mg by mouth once daily. Disp: Rfl: VENTOLIN HFA 90 mcg/actuation inhaler inhale 2 puffs every 4 hours if needed Disp: 1 Inhaler Rfl: 2 SPIRIVA WITH HANDIHALER 18 mcg inhalation capsule inhale the contents of one capsule in the handihaler once daily Disp: 90 capsule Rfl: 2 nystatin-triamcinolone (MYCOLOG II) cream Apply 1 application to affected area twice daily as needed. Genital rash. Disp: 1 Tube Rfl: 2 azelastine (ASTELIN,ASTEPRO) 0.1% nasal spray instill 2 sprays into each nostril twice a day Disp: 1 Bottle Rfl: 11 ipratropium-albuterol (DUONEB) 0.5 mg-3 mg(2.5 mg base)/3 mL nebu Inhale 3 mL as instructed four times daily as needed. by nebulizer over 5 to 15 minutes. Disp: 120 Vial Rfl: 3 fluticasone (FLONASE) 50 mcg/actuation nasal spray instill 2 sprays into each nostril twice a day Disp: 3 Bottle Rfl: 3 COMPOUNDED PRESCRIPTION Polypodium Leucotomos extract (Daily Defense). Take 2 capsules once a day. 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 Disp: Rfl: 0 montelukast (SINGULAIR) 10 mg tablet Take 1 tablet by mouth daily at bedtime. Disp: 90 tablet Rfl: 3 EPINEPHrine (EPIPEN) 0.3 mg/0.3 mL auto-injector Inject 0.3 mL intramuscularly as needed. Disp: 1 Each Rfl: 1 albuterol HFA (PROVENTIL HFA) 90 mcg/actuation inhaler Inhale 2 Puffs as instructed. Disp: Rfl: polyethylene glycol 3350 (MIRALAX, GLYCOLAX) 17 gram/dose powder Take 17 g by mouth once daily. Take one (1) capful in 8oz of liquid each day. Disp: 527 g Rfl: 11 ferrous sulfate 325 mg (65 mg iron) tablet Take one(1) tablet two(2) times daily. (Patient taking differently: Take by mouth once daily. Take one(1) tablet two(2) times daily.) Disp: Rfl: multivitamin tablet Take 1 tablet by mouth once daily. Disp: Rfl: 0 ipratropium (ATROVENT) 0.02 % nebulizer solution 500 mcg (one ampule) nebulized four times a day as needed. Disp: 120 Vial Rfl: 11 Vitamin A-Vit C-Vit E-Zinc-Cu (OCUVITE PRESERVISION) ORAL Tab Take one(1) tablet two(2) times daily. Disp: Rfl: 0 No current facility-administered medications for this visit. PAST SURGICAL HISTORY Procedure Laterality Date - APPENDECTOMY 11-02-14 - COLONOS W/REM POLYP SNARE 07/25/05 - COLONOS W/REM POLYP SNARE 01/17/11 - COLONOSCOP W/ OR W/O [facility] SPEC 07/28/14 Colonoscopy - COLONOSCOP W/ OR W/O [facility] SPEC 8-3-16 - COLONOSCOPY - DIAGNOSTIC 03/02/2003 - EGD W/O OR W/BRUSH/WASH 04/17/15 EGD - KNEE SCOPE,DIAGNOSTIC 1998 LEFT - LAP COLECTMY W/ILEUM/ILEOCOL 11-02-14 WITH INCISIONAL HERNIA REPAIR - LAPAROSCOPIC HEMICOLECTOMY 11-02-14 - REMV PROSTATE,PERINEAL,RADICAL 11/28/2003 - REPAIR ROTATOR CUFF,ACUTE 03/04/2002 Rotator cuff repair Left - REPAIR UMBILICAL BAKARI,5+Y/O,REDUC 03/01/1996 Hernia repair, umbilical >5yr - [facility] N/CARPAL TUNNEL SURG , Carpal tunnel decomp R, L - TOTAL HIP REPLACEMENT 07/26/2013 Hip replacement, total, LEFT, Dr. Rojas - TOTAL KNEE REPLACEMENT 06/2008 left knee FAMILY HISTORY Problem Relation Age of Onset - Diabetes Father - Colon Cancer Father - Asthma Mother - Diabetes Sister - Colon Cancer Sister Social History Substance Use Topics - Smoking status: Never Smoker - Smokeless tobacco: Never Used Comment: Father smoked in childhood home. No household smoke exposure since. 05/2014. - Alcohol use No BP 142/70 Pulse 111 Temp 38.2 ?C (100.8 ?F) (Tympanic) Resp 24 Wt 97.1 kg (214 lb) SpO2 94% BMI 34.54 kg/m2 Objective Physical Exam Constitutional: He is oriented to person, place, and time and well-developed, well-nourished, and in no distress. HENT: Head: Normocephalic and atraumatic. Right Ear: Tympanic membrane, external ear and ear canal normal. Left Ear: Tympanic membrane, external ear and ear canal normal. Nose: Nose normal. Mouth/Throat: Uvula is midline, oropharynx is clear and moist and mucous membranes are normal. Eyes: Conjunctivae are normal. Neck: Normal range of motion. Neck supple. Cardiovascular: Normal rate, regular rhythm and normal heart sounds. Pulmonary/Chest: Effort normal. Pt has diffuse expiratory wheezes in all lung duenas. He is in no visible distress, speaking in full sentences. Neurological: He is alert and oriented to person, place, and time. Skin: Skin is warm and dry. No rash noted. Psychiatric: Affect and judgment normal. Nursing note and vitals reviewed. ASSESSMENT/PLAN: 1. Cough - ICD9: 786.2, ICD10: R05 (primary diagnosis) - XR CHEST 2V FRONTAL/LAT 2. Bacterial pneumonia - ICD9: 482.9, ICD10: J15.9 Pt cxr shows bilateral atelectasis vs infiltrate in the bases. Due to his fever and cough I feel more likely pneumonia. Pt given breathing tx. His pulse ox on arrival was 94% and he is in no distress. He does have a low grade temp of 100.8. I discussed with the patient that I will start him on doxycycline and he needs to do his nebulizer tx every 4-6 hours. I was also able to get him into his primary care on Friday to have a recheck . I discussed with the patient and his family member here with him if he in any way feels worse he needs to go to the ED. He is comfortable with this plan. Eleazar Guevara PA-C CNOV Observed: 08/07/2017 Status: COMPLETED Source: [place] 10:15 AM [facility] REPOSITORY Office Visit (WSTR) CARISSA YIP ([id number]) 1940 M Date Time Provider Department 08/07/17 10:15 AM ELEAZAR GUEVARA (IAN) WSTR During your visit today, we recorded the following information about you: Temperature Pulse Respiration Blood pressure 100.8 degrees 111/minute 24/minute 142/70 Weight 97.1 kg Eleazar Guevara PA-C 08/07/2017 12:11 PM Signed Subjective HPI Pt presents with cough and wheezing for 6 days. He does have a fever here of 100.8, did not check at home. He does have asthma, was never a smoker. He does use a nebulizer, ventolin inhaler and Spiriva. He did have a PE in January but is on xarelto and has been taking his meds as directed. He does have chronic shortness of breath but feels worse now. No chest pain. No leg pain or swelling. No hx of heart failure. He had pneumonia 06/22. Review of Systems Constitutional: Positive for fever. HENT: Positive for congestion. Eyes: Negative. Respiratory: Positive for cough, sputum production, shortness of breath and wheezing. Cardiovascular: Negative. Gastrointestinal: Positive for diarrhea. Negative for vomiting. Genitourinary: Negative. Musculoskeletal: Negative. Skin: Negative. All other systems reviewed and are negative. PAST MEDICAL HISTORY Diagnosis Date - Anxiety state, unspecified - Benign neoplasm of colon - Chronic rhinitis - Colon polyp 10/2014 - Depressive disorder, not elsewhere classified - Diverticulosis of colon (without mention of hemorrhage) - Esophageal reflux - Family history of malignant neoplasm of gastrointestinal tract - GENERAL OSTEOARTHROSIS 04/08/2008 - Gout 04/01/2011 - HYPERGLYCEMIA 07/19/2005 - HYPERLIPIDEMIA NEC/NOS 07/19/2005 - HYPERTENSION NOS 09/03/2007 - Hypertrophy of prostate without urinary obstruction and other lower urinary tract symptoms (LUTS) - Impaired fasting blood sugar 07/19/2005 - Internal hemorrhoids without mention of complication - IRON DEFIC ANEMIA NEC 07/19/2005 - Macular degeneration (senile) of retina, unspecified - MALIGN NEOPL PROSTATE 05/23/2005 - Other pulmonary embolism without acute cor pulmonale (HCC) 01/27/2017 - Personal history of colonic polyps - Pulmonary embolism (HCC) - PULMONARY NODULES 06/03/2006 - Rosacea 02/25/2007 - Skin cancer of face [facility]. - Unspecified asthma(493.90) Current Outpatient Prescriptions: ADVAIR HFA 230-21 mcg/actuation inhaler take 2 inhalations by mouth twice a day Rinse mouth after use Disp: 3 Inhaler Rfl: 3 rivaroxaban (XARELTO) 20 mg tablet Take 1 tablet by mouth daily with dinner. Disp: 30 tablet Rfl: 0 omeprazole (PRILOSEC) 20 mg capsule Take 1 capsule by mouth daily before breakfast. 1/2 hr before meal. Disp: 90 capsule Rfl: 3 lisinopril (ZESTRIL, PRINIVIL) 20 mg tablet Take 1 tablet by mouth once daily. Disp: 90 tablet Rfl: 3 sertraline (ZOLOFT) 100 mg tablet Take 1 tablet by mouth twice daily. Disp: Rfl: atorvastatin (LIPITOR) 10 mg tablet take 1 tablet by mouth at bedtime Disp: 90 tablet Rfl: 3 guaiFENesin (MUCINEX) 600 mg 12 hr tablet Take 1 tablet by mouth twice daily. Disp: 60 tablet Rfl: 3 leflunomide (ARAVA) 10 mg tablet Take 10 mg by mouth once daily. Disp: Rfl: VENTOLIN HFA 90 mcg/actuation inhaler inhale 2 puffs every 4 hours if needed Disp: 1 Inhaler Rfl: 2 SPIRIVA WITH HANDIHALER 18 mcg inhalation capsule inhale the contents of one capsule in the handihaler once daily Disp: 90 capsule Rfl: 2 nystatin-triamcinolone (MYCOLOG II) cream Apply 1 application to affected area twice daily as needed. Genital rash. Disp: 1 Tube Rfl: 2 azelastine (ASTELIN,ASTEPRO) 0.1% nasal spray instill 2 sprays into each nostril twice a day Disp: 1 Bottle Rfl: 11 ipratropium-albuterol (DUONEB) 0.5 mg-3 mg(2.5 mg base)/3 mL nebu Inhale 3 mL as instructed four times daily as needed. by nebulizer over 5 to 15 minutes. Disp: 120 Vial Rfl: 3 fluticasone (FLONASE) 50 mcg/actuation nasal spray instill 2 sprays into each nostril twice a day Disp: 3 Bottle Rfl: 3 COMPOUNDED PRESCRIPTION Polypodium Leucotomos extract (Daily Defense). Take 2 capsules once a day. 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 Disp: Rfl: 0 montelukast (SINGULAIR) 10 mg tablet Take 1 tablet by mouth daily at bedtime. Disp: 90 tablet Rfl: 3 EPINEPHrine (EPIPEN) 0.3 mg/0.3 mL auto-injector Inject 0.3 mL intramuscularly as needed. Disp: 1 Each Rfl: 1 albuterol HFA (PROVENTIL HFA) 90 mcg/actuation inhaler Inhale 2 Puffs as instructed. Disp: Rfl: polyethylene glycol 3350 (MIRALAX, GLYCOLAX) 17 gram/dose powder Take 17 g by mouth once daily. Take one (1) capful in 8oz of liquid each day. Disp: 527 g Rfl: 11 ferrous sulfate 325 mg (65 mg iron) tablet Take one(1) tablet two(2) times daily. (Patient taking differently: Take by mouth once daily. Take one(1) tablet two(2) times daily.) Disp: Rfl: multivitamin tablet Take 1 tablet by mouth once daily. Disp: Rfl: 0 ipratropium (ATROVENT) 0.02 % nebulizer solution 500 mcg (one ampule) nebulized four times a day as needed. Disp: 120 Vial Rfl: 11 Vitamin A-Vit C-Vit E-Zinc-Cu (OCUVITE PRESERVISION) ORAL Tab Take one(1) tablet two(2) times daily. Disp: Rfl: 0 No current facility-administered medications for this visit. PAST SURGICAL HISTORY Procedure Laterality Date - APPENDECTOMY 11-02-14 - COLONOS W/REM POLYP SNARE 07/25/05 - COLONOS W/REM POLYP SNARE 01/17/11 - COLONOSCOP W/ OR W/O [facility] SPEC 07/28/14 Colonoscopy - COLONOSCOP W/ OR W/O [facility] SPEC 12-20-15 - COLONOSCOPY - DIAGNOSTIC 03/02/2003 - EGD W/O OR W/BRUSH/WASH 04/17/15 EGD - KNEE SCOPE,DIAGNOSTIC 1998 LEFT - LAP COLECTMY W/ILEUM/ILEOCOL 11-02-14 WITH INCISIONAL HERNIA REPAIR - LAPAROSCOPIC HEMICOLECTOMY 11-02-14 - REMV PROSTATE,PERINEAL,RADICAL 11/28/2003 - REPAIR ROTATOR CUFF,ACUTE 03/04/2002 Rotator cuff repair Left - REPAIR UMBILICAL BAKARI,5+Y/O,REDUC 03/01/1996 Hernia repair, umbilical ANDgt;5yr - REVISE MEDIAN N/CARPAL TUNNEL SURG , Carpal tunnel decomp R, L - TOTAL HIP REPLACEMENT 07/26/2013 Hip replacement, total, LEFT, Dr. Rojas - TOTAL KNEE REPLACEMENT 06/2008 left knee FAMILY HISTORY Problem Relation Age of Onset - Diabetes Father - Colon Cancer Father - Asthma Mother - Diabetes Sister - Colon Cancer Sister Social History Substance Use Topics - Smoking status: Never Smoker - Smokeless tobacco: Never Used Comment: Father smoked in childhood home. No household smoke exposure since. 05/2014. - Alcohol use No BP 142/70 Pulse 111 Temp 38.2 ?C (100.8 ?F) (Tympanic) Resp 24 Wt 97.1 kg (214 lb) SpO2 94% BMI 34.54 kg/m2 Objective Physical Exam Constitutional: He is oriented to person, place, and time and well-developed, well-nourished, and in no distress. HENT: Head: Normocephalic and atraumatic. Right Ear: Tympanic membrane, external ear and ear canal normal. Left Ear: Tympanic membrane, external ear and ear canal normal. Nose: Nose normal. Mouth/Throat: Uvula is midline, oropharynx is clear and moist and mucous membranes are normal. Eyes: Conjunctivae are normal. Neck: Normal range of motion. Neck supple. Cardiovascular: Normal rate, regular rhythm and normal heart sounds. Pulmonary/Chest: Effort normal. Pt has diffuse expiratory wheezes in all lung duenas. He is in no visible distress, speaking in full sentences. Neurological: He is alert and oriented to person, place, and time. Skin: Skin is warm and dry. No rash noted. Psychiatric: Affect and judgment normal. Nursing note and vitals reviewed. ASSESSMENT/PLAN: 1. Cough - ICD9: 786.2, ICD10: R05 (primary diagnosis) - XR CHEST 2V FRONTAL/LAT 2. Bacterial pneumonia - ICD9: 482.9, ICD10: J15.9 Pt cxr shows bilateral atelectasis vs infiltrate in the bases. Due to his fever and cough I feel more likely pneumonia. Pt given breathing tx. His pulse ox on arrival was 94% and he is in no distress. He does have a low grade temp of 100.8. I discussed with the patient that I will start him on doxycycline and he needs to do his nebulizer tx every 4-6 hours. I was also able to get him into his primary care on Friday to have a recheck . I discussed with the patient and his family member here with him if he in any way feels worse he needs to go to the ED. He is comfortable with this plan. FRANKLIN Jean-Baptiste LPN 08/07/2017 11:19 AM Signed 2.5 solution aerosol treatment given per doctor's orders. Prior to treatment O2 Sat is 94%. Treatment completed. O2 sat is 91%. Tolerated well.Emily Aguilar LPN Referring Provider: SELF [[id number]] Allergies As of Date: 08/07/2017 Noted Allergy Reaction INDOCIN (INDOMETHACIN SODIUM) 04/01/2011 14 - Other: See Comments Comments: Wheezing, can take naprosyn PERCOCET (OXYCODONE-ACETAMINOPHEN)01/08/2005 9 - Itching SEASONAL ALLERGIES 11/12/2012 14 - Other: See Comments Comments: Cat, Goats, Dust mites, molds, trees, grasses, weed, ragweed Date Reviewed: 08/07/2017 Reviewed by: Gayle Ackerman LPN - Fully Assessed Reason for Visit: Cough [28] Cmt: with congestion x 5 day Primary Visit Diagnosis:Cough [R05] Other Visit Diagnosis:Bacterial pneumonia [J15.9] Order(s):XR CHEST 2V FRONTAL/LAT [[id number]] Order #: [id number] FUTURE albuterol (PROVENTIL) 5 mg/mL nebuInhale 0.5 mL as instructed one time only for 1 dose. 1 DOSE NOW - BACK OFFICE. PLACE 0.5 ML PER DROPPER AND 2.5 ML OF NORMAL SALINE INTO RESERVOIR.Disp: 1 mLRfl: 0 doxycycline (VIBRA-TABS) 100 mg tabletTake 1 tablet by mouth twice daily for 10 days.Disp: 20 tabletRfl: 0 Prescriptions as of 08/07/2017 Sig: ADVAIR HFA 230 MCG-21 MCG/ACT* take 2 inhalations by mouth t* RIVAROXABAN 20 MG TABLET Take 1 tablet by mouth daily * OMEPRAZOLE 20 MG CAPSULE,ALEX* Take 1 capsule by mouth daily* LISINOPRIL 20 MG TABLET Take 1 tablet by mouth once d* SERTRALINE 100 MG TABLET Take 1 tablet by mouth twice * ATORVASTATIN 10 MG TABLET take 1 tablet by mouth at bed* GUAIFENESIN ER 600 MG TABLET,* Take 1 tablet by mouth twice * LEFLUNOMIDE 10 MG TABLET Take 10 mg by mouth once christiano* VENTOLIN HFA 90 MCG/ACTUATION* inhale 2 puffs every 4 hours * SPIRIVA WITH HANDIHALER 18 MC* inhale the contents of one ca* NYSTATIN-TRIAMCINOLONE 100,00* Apply 1 application to affect* AZELASTINE 137 MCG (0.1 %) NA* instill 2 sprays into each no* IPRATROPIUM-ALBUTEROL 0.5 MG-* Inhale 3 mL as instructed fou* FLUTICASONE 50 MCG/ACTUATION * instill 2 sprays into each no* COMPOUNDED PRESCRIPTION Polypodium Leucotomos extract* MONTELUKAST 10 MG TABLET Take 1 tablet by mouth daily * EPINEPHRINE 0.3 MG/0.3 ML INJ* Inject 0.3 mL intramuscularly* ALBUTEROL SULFATE HFA 90 MCG/* Inhale 2 Puffs as instructed. POLYETHYLENE GLYCOL 3350 17 G* Take 17 g by mouth once daily* FERROUS SULFATE 325 MG (65 MG* Take one(1) tablet two(2) link* Patient taking differently: Take by mouth once daily. Ta* MULTIVITAMIN TABLET Take 1 tablet by mouth once d* IPRATROPIUM BROMIDE 0.02 % SO* 500 mcg (one ampule) nebulize* PRESERVISION AREDS 7,160 UNIT* Take one(1) tablet two(2) link* ALBUTEROL SULFATE CONCENTRATE* Inhale 0.5 mL as instructed o* DOXYCYCLINE HYCLATE 100 MG TA* Take 1 tablet by mouth twice * Problem List As Of Date 08/07/2017 Noted Resolved Asthma [J45.909] CHRONIC RHINITIS [J31.0] BPH without obstruction/lower urinary tract sym* ANXIETY STATE NOS [F41.1] 08/05/2014 Depression with anxiety [F41.8] Diverticulosis of colon (without mention of hem* 10/06/2012 ESOPHAGEAL REFLUX [K21.9] Internal hemorrhoids without mention of complic* 08/30/2010 Malignant neoplasm of prostate (HCC) [C61] INVALID FOR*08/05/2014 MACULAR DEGENERATION NOS [H35.30] Other specified iron deficiency anemias [D50.8] INVALID FOR*08/30/2010 Impaired fasting blood sugar [R73.01] INVALID FOR* Hyperlipidemia [E78.5] INVALID FOR* Personal history of colonic polyps [Z86.010] INVALID FOR*09/30/2011 More... FAMILY HX COLON CANCER [Z80.0] INVALID FOR* PULMONARY NODULES [J98.4] INVALID FOR*10/06/2012 More... 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] INVALID FOR* Essential hypertension [I10] INVALID FOR* Generalized osteoarthritis of multiple sites [M*INVALID FOR* Benign neoplasm of rectum and anal canal [D12.8*INVALID FOR*10/06/2012 Benign neoplasm of colon [D12.6] INVALID FOR* Gout [M10.9] INVALID FOR* Venous insufficiency of leg [I87.2] INVALID FOR* Iron deficiency anemia due to chronic blood los*INVALID FOR* Inflammatory polyarthropathy of multiple sites *INVALID FOR* Unsteady gait [R26.81] INVALID FOR* Uncomplicated severe persistent asthma [J45.50] INVALID FOR* Other pulmonary embolism without acute cor pulm*INVALID FOR* Pulmonary hypertension (HCC) [I27.20] INVALID FOR* Visit Notes: >> Emily Ruizshanellbeena CASSIE Stella Aug 07, 2017 11:18 AM Status: Signed 2.5 solution aerosol treatment given per doctor's orders. Prior to treatment O2 Sat is 94%. Treatment completed. O2 sat is 91%. Tolerated well.Emily Aguilar LPN Prescriptions ordered this encounter Disp Refills Start End ALBUTEROL SULFATE CONCENTRATE 5 MG/M* 1 mL 0 08/07/2017 08/07/2017 Class: In Office Route: INHALATION Sig: Inhale 0.5 mL as instructed one time only for 1 dose. 1 DOSE NOW - BACK OFFICE. PLACE 0.5 ML PER DROPPER AND 2.5 ML OF NORMAL SALINE INTO RESERVOIR. DOXYCYCLINE HYCLATE 100 MG TABLET 20 t* 0 08/07/2017 08/17/2017 Route: ORAL Sig: Take 1 tablet by mouth twice daily for 10 days. Encounter Status:Closed by ELEAZAR GUEVARA PA-C on 08/07/17 CBC AND DIFFERENTIAL Collected: 07/21/2017 Status: F Source: [place] 11:12 AM [facility] REPOSITORY TYPE CODE TESTS RESULT OUT OF REFERENCE UNITS RANGE LAB WBC 3.70-11.00 k/uL WBC 6.26 LAB RBC 4.20-6.00 m/uL RBC 4.37 LAB HGB 13.0-17.0 g/dL Low Hemoglobin 12.3 LAB HCT 39.0-51.0 % Hematocrit 39.3 LAB MCV 80.0-100.0 fL MCV 89.9 LAB MCH 26.0-34.0 pG MCH 28.1 LAB MCHC 30.5-36.0 g/dL MCHC 31.3 LAB RDWCV 11.5-15.0 % RDW-CV High 15.4 LAB PLTCT 150-400 k/uL Platelet Count 187 LAB MPV 9.0-12.7 fL MPV 11.7 LAB ANEUT % Neut% 72.3 LAB AANEUT 1.45-7.50 k/uL Abs Neut 4.53 LAB ALYMP % Lymph% 15.5 LAB AALYMP 1.00-4.00 k/uL Low Abs Lymph 0.97 LAB AMONO % Teller% 10.9 LAB AAMONO <0.87 k/uL Abs Teller 0.68 LAB AEOS % Eosin% 1.1 LAB AAEOS <0.46 k/uL Abs Eosin 0.07 LAB ABASO % Baso% 0.2 LAB AABASO <0.11 k/uL Abs Baso <0.03 LAB AUNRBC 0 /100 WBC NRBCs 0.0 LAB ABNRBC <0.01 k/uL Absolute nRBC <0.01 LAB DTYP DTYPE Auto Diff Performed By: #### CBCDIF, CMP, TSH, B12 #### [facility] [address] [place], [place] [address] COMP METABOLIC PANEL Collected: 07/21/2017 Status: F Source: [place] 11:12 AM [facility] REPOSITORY TYPE CODE TESTS RESULT OUT OF REFERENCE UNITS RANGE LAB TP 6.3-8.0 g/dL Protein, Total 7.6 LAB ALB 3.9-4.9 g/dL Albumin 4.0 LAB CA 8.5-10.2 mg/dL Calcium, Total 9.8 LAB TBIL 0.2-1.3 mg/dL Bilirubin, Total 0.6 LAB ALKP 36-108 U/L Alkaline Phosphatase 68 LAB AST 14-40 U/L AST 31 LAB GLU 74-99 mg/dL Glucose 96 Result Comment: The [place] [employer] (ADA) provides guidance for cutoff values for fasting glucose and random glucose. The ADA defines fasting as no caloric intake for at least 8 hours. Fas ting plasma glucose results between 100 to 125 mg/dL indicate increased risk for diabetes (prediabetes). Fasting plasma glucose results greater than or equal to 126 mg/dL meet the criteria for diagnosis of diabetes. In the absence of unequivocal hyperglycemia, results should be confirmed by repeat testing. In a patient with classic symptoms of hyperglycemia or hyperglycemic crisis, random plasma glucose results greater than or equal to 200 mg/dL meet the criteria for diagnosis of diabetes. Reference: Standards of Medical Care in Diabetes 2016, [place] [employer]. Diabetes Care. 2016.39(Suppl 1). LAB BUN 9-24 mg/dL BUN 24 LAB CRET 0.73-1.22 mg/dL Creatinine 1.18 LAB NA 136-144 mmol/L Low Sodium 134 LAB K 3.7-5.1 mmol/L Potassium High 5.2 LAB CL 97-105 mmol/L Chloride 101 LAB CO2 22-30 mmol/L Low CO2 19 LAB AGAP 9-18 mmol/L Anion Gap 14 LAB ALT 10-54 U/L ALT 28 LAB GFRAA eGFR- Amer. >60 LAB GFRNAA . eGFR-All Other Races 60 Result Comment: eGFR (Estimated GFR) Units of measure: mL/min/1.73 meters squared eGFR is derived from the reexpressed MDRD Study equation using the following parameters: serum creatinine, age, gender and race. The creatinine assay has been calibrated to be traceable to IDMS. An eGFR <60 mL/min/1.73m2 for >3 months is consistent with chronic kidney disease. Refer to KDOQI guidelines for clinical interpretation. In patients with unstable renal function, e.g. those with acute kidney injury, the eGFR may not accurately reflect actual GFR. Performed By: #### CBCDIF, CMP, TSH, B12 #### [facility] [employer] [address] [place] [address] TSH Collected: 07/21/2017 Status: F Source: [place] 11:12 AM [facility] REPOSITORY TYPE CODE TESTS RESULT OUT OF RANGE REFERENCE UNITS LAB TSH 0.400-5.500 uU/mL High TSH 5.650 Performed By: #### CBCDIF, CMP, TSH, B12 #### [facility] [employer] [address] [place] [address] VITAMIN B12 Collected: 07/21/2017 Status: F Source: [place] 11:12 AM [facility] REPOSITORY TYPE CODE TESTS RESULT OUT OF REFERENCE UNITS RANGE LAB B12 232-1245 pg/mL Vitamin B12 536 Performed By: #### CBCDIF, CMP, TSH, B12 #### [facility] [employer] [address] [place] [address] PROGRESS Observed: 07/21/2017 Status: COMPLETED Source: [place] 10:37 AM [facility] REPOSITORY HNO ID: [id number] Author: Elena (Director Of Retail Merchandising) Older Service: (none) Author Type: Nurse Practitioner Type: Progress Notes Filed: 07/22/2017 9:06 AM Note Text: CC: Patient presents with: memory issues HPI Carissa Yip is a 76 year old male who presents today for memory issues. States having problems with short term memory for the past couple months. Difficulty concentrating and planning things: No Short term memory loss: Yes, Misplacing things, forgetful, missing appointments nursing home memory loss: No Short attention span: No Lack of motivation: No Personality, mood and behavioral changes: No Delusions or hallucinations: No Incontinence: No Muscle weakness, stiffness, or paralysis: No Slow and unsteady movements: No Trembling in arms and legs: No Sleeping difficulties: No Aggression and frustration: No REVIEW OF SYSTEMS General: no fevers, no chills, no night sweats, no change in appetite, no change in energy and no significant changes in weight HEENT: no frequent or significant headaches, no changes in hearing. Recently diagnosed with macular degeneration. Respiratory: no cough, no wheezing, no shortness of breath Cardiovascular: no chest pain, no chest pressure, no palpitations and no swelling Endocrine: no fatigue, no constipation, no diarrhea, no LE edema, no weight gain, no weight loss and no cold intolerance Psych: Stress due to health issues. is struggling with depression and he gets frustrated with her sometimes. Patient has history of depression and anxiety. Taking Zoloft 200 mg daily, feels like it is effective and does not think he is depressed. 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/08/2008 - Gout 04/01/2011 - HYPERGLYCEMIA 07/19/2005 - HYPERLIPIDEMIA NEC/NOS 07/19/2005 - HYPERTENSION NOS 09/03/2007 - Hypertrophy of prostate without urinary obstruction and other lower urinary tract symptoms (LUTS) - Impaired fasting blood sugar 07/19/2005 - Internal hemorrhoids without mention of complication - IRON DEFIC ANEMIA NEC 07/19/2005 - Macular degeneration (senile) of retina, unspecified - MALIGN NEOPL PROSTATE 05/23/2005 - Other pulmonary embolism without acute cor pulmonale (HCC) 01/27/2017 - Personal history of colonic polyps - Pulmonary embolism (HCC) - PULMONARY NODULES 06/03/2006 - Rosacea 02/25/2007 - Skin cancer of face [place]. - Unspecified asthma(493.90) PAST SURGICAL HISTORY Procedure Laterality Date - APPENDECTOMY 11-02-14 - COLONOS W/REM POLYP SNARE 07/25/05 - COLONOS W/REM POLYP SNARE 01/17/11 - COLONOSCOP W/ OR W/O BRSH SPEC 07/28/14 Colonoscopy - COLONOSCOP W/ OR W/O BRSH SPEC 12-20-15 - COLONOSCOPY - DIAGNOSTIC 03/02/2003 - EGD W/O OR W/BRUSH/WASH 04/17/15 EGD - KNEE SCOPE,DIAGNOSTIC 1998 LEFT - LAP COLECTMY W/ILEUM/ILEOCOL 11-02-14 WITH INCISIONAL HERNIA REPAIR - LAPAROSCOPIC HEMICOLECTOMY 11-02-14 - REMV PROSTATE,PERINEAL,RADICAL 11/28/2003 - REPAIR ROTATOR CUFF,ACUTE 03/04/2002 Rotator cuff repair Left - REPAIR UMBILICAL BAKARI,5+Y/O,REDUC 03/01/1996 Hernia repair, umbilical >5yr - RE[facility]ISE [facility]IAN N/CARPAL TUNNEL SURG , Carpal tunnel decomp R, L - TOTAL HIP REPLACEMENT 07/26/2013 Hip replacement, total, LEFT, Dr. Rojas - TOTAL KNEE REPLACEMENT 06/2008 left knee ALLERGIES Indocin [Indomethacin Sodium]; Percocet [Oxycodone-Acetaminophen]; Seasonal Allergies MEDICATIONS rivaroxaban (XARELTO) 20 mg tablet Take 1 tablet by mouth daily with dinner. omeprazole (PRILOSEC) 20 mg capsule Take 1 capsule by mouth daily before breakfast. 1/2 hr before meal. lisinopril (ZESTRIL, PRINIVIL) 20 mg tablet Take 1 tablet by mouth once daily. sertraline (ZOLOFT) 100 mg tablet Take 1 tablet by mouth twice daily. atorvastatin (LIPITOR) 10 mg tablet take 1 tablet by mouth at bedtime guaiFENesin (MUCINEX) 600 mg 12 hr tablet Take 1 tablet by mouth twice daily. leflunomide (ARAVA) 10 mg tablet Take 10 mg by mouth once daily. 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 Dx: Unsteady gait - ICD9: 781.2, ICD10: R26.81; Uncomplicated severe persistent asthma - ICD9: 493.90, ICD10: J45.50. rivaroxaban (XARELTO) 20 mg tablet Take 1 tablet by mouth daily with dinner for 159 days. nystatin-triamcinolone (MYCOLOG II) cream Apply 1 application to affected area twice daily as needed. Genital rash. azelastine (ASTELIN,ASTEPRO) 0.1% nasal spray instill 2 sprays into each nostril twice a day ipratropium-albuterol (DUONEB) 0.5 mg-3 mg(2.5 mg base)/3 mL nebu Inhale 3 mL as instructed four times daily as needed. by nebulizer over 5 to 15 minutes. fluticasone (FLONASE) 50 mcg/actuation nasal spray instill 2 sprays into each nostril twice a day COMPOUNDED PRESCRIPTION Polypodium Leucotomos extract (Daily Defense). Take 2 capsules once a day. 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 montelukast (SINGULAIR) 10 mg tablet Take 1 tablet by mouth daily at bedtime. ADVAIR HFA 230-21 mcg/actuation inhaler inhale 2 puffs as directed twice a day USE WITH SPACER RINSE MOUTH AFTER USE EPINEPHrine (EPIPEN) 0.3 mg/0.3 mL auto-injector Inject 0.3 mL intramuscularly as needed. albuterol HFA (PROVENTIL HFA) 90 mcg/actuation inhaler Inhale 2 Puffs as instructed. polyethylene glycol 3350 (MIRALAX, GLYCOLAX) 17 gram/dose powder Take 17 g by mouth once daily. Take one (1) capful in 8oz of liquid each day. ferrous sulfate 325 mg (65 mg iron) tablet Take one(1) tablet two(2) times daily. multivitamin tablet Take 1 tablet by mouth once daily. ipratropium (ATROVENT) 0.02 % nebulizer solution 500 mcg (one ampule) nebulized four times a day as needed. Vitamin A-Vit C-Vit E-Zinc-Cu (OCUVITE PRESERVISION) ORAL Tab Take one(1) tablet two(2) times daily. FAMILY HISTORY Problem Relation Age of Onset - Diabetes Father - Colon Cancer Father - Asthma Mother - Diabetes Sister - Colon Cancer Sister Social History Substance Use Topics - Smoking status: Never Smoker - Smokeless tobacco: Never Used Comment: Father smoked in childhood home. No household smoke exposure since. 05/2014. - Alcohol use No PHYSICAL EXAM BP 123/77 (BP Site: Left Arm, BP Position: Sitting, BP Cuff Size: Large Adult) Pulse 78 Temp 36.8 ?C (98.3 ?F) (Temporal Artery) Resp 16 Wt 96.6 kg (213 lb) SpO2 94% BMI 34.38 kg/m2 Appearance: well dressed well groomed, cooperative and pleasant Behavior: good eye contact and tense Speech: fluent and coherent Mood: anxious Affect: constricted Skin: Skin color, texture, turgor normal for age; Eyes: PERRLA, EOM's intact, conjunctiva pink and moist, no icterus, sclera white, non-injected Neck: Thyroid normal size and symmetric without palpable nodules, No bruits, Neck supple, No adenopathy Oropharynx: lips normal without lesions, tongue midline and normal, soft palate, uvula, and tonsils normal Lymph nodes: No supraclavicular lymphadenopathy Lungs: Lungs clear to auscultation. No wheezing, rhonchi, rales Heart: RRR without murmur, gallop, or rubs. No ectopy Abdomen: Abdomen soft, non-tender. Bowel sounds normal. No masses, organomegaly but difficult to evaluate due to obese abdomen Neurological: Negative findings: speech normal, mental status intact, cranial nerves 2-12 intact, muscle strength normal, reflexes normal and symmetric, gait normal Ext: no edema in LE bilaterally, good distal pulses COLORECTAL CANCER SCREENING,SEE MODIFIER due on 12/18/2018 DIABETES SCREEN due on 02/29/2020 LIPID SCREEN due on 08/20/2021 TETANUS due on 02/21/2026 PROSTATE CANCER SCREENING DISCUSSION Completed ADULT PREVNAR-13 Completed INFLUENZA Completed PNEUMOVAX AGE 65 AND OVER WITH 5YR LOOKBACK Completed [place] MMSE 07/21/[address] 5 REGISTRATION 3 ATTENTION AND CALCULATION 5 RECALL 2 LANGUAGE 2 REPEAT 1 FOLLOW 3-STEP COMMAND 3 READ AND OBEY 1 WRITE A SENTENCE 1 COPY 1 SCORE 28 HEARING IMPAIRED No VISION IMPAIRED No Interpretation of: MME- 1. normal cognitive function = 27-30 2. mild cognitive impairment = 21-26 3. moderate cognitive impairment = 11-20 4. severe cognitive impairment = 0-10. ASSESSMENT/PLAN: 1. Short-term memory loss - ICD9: 780.93, ICD10: R41.3 (primary diagnosis) Etiology unclear. Exam benign. MMSE 28. Ability to manage personal finances, knowledge of personal and current events, ability to follow directions, ability to find appropriate words, sense of time (day, year, season) and sense of place (knows where he/she is). Dementia is not likely. Work-up with: - VITAMIN B12 BLOOD - CBC + DIFF - COMP METABOLIC PANEL - TSH BLD Symptoms likely due to depression and anxiety. Discussed with patient . If labs are normal will need to follow-up for possible medication adjustment 2. Forgetfulness - ICD9: 780.99, ICD10: R68.89 As above - VITAMIN B12 BLOOD - CBC + DIFF - COMP METABOLIC PANEL - TSH BLD 3. Anxiety and depression - ICD9: 300.00, 311, ICD10: F41.8 As above Prescription instructions reviewed with patient as applicable. Potential red flag symptoms discussed with the patient. Reviewed appropriate action plan to take if red flag symptoms occur. Patient agreeable to treatment plan. PETROS MartinezOV Observed: 07/21/2017 Status: COMPLETED Source: [place] 10:20 AM [facility] REPOSITORY Office Visit (INTM[facility]) CARISSA YIP ([id number]) 1940 M Date Time Provider Department 07/21/17 10:20 AM ELENA MONTERROSO (PETROS) IN[facility] During your visit today, we recorded the following information about you: Temperature Pulse Respiration Blood pressure 98.3 degrees 78/minute 16/minute 123/77 Weight 96.6 kg Elena Older, SIGNAL OPERATOR 07/22/2017 9:06 AM Signed CC: Patient presents with: memory issues HPI Carissa Yip is a 76 year old male who presents today for memory issues. States having problems with short term memory for the past couple months. Difficulty concentrating and planning things: No Short term memory loss: Yes, Misplacing things, forgetful, missing appointments nursing home memory loss: No Short attention span: No Lack of motivation: No Personality, mood and behavioral changes: No Delusions or hallucinations: No Incontinence: No Muscle weakness, stiffness, or paralysis: No Slow and unsteady movements: No Trembling in arms and legs: No Sleeping difficulties: No Aggression and frustration: No REVIEW OF SYSTEMS General: no fevers, no chills, no night sweats, no change in appetite, no change in energy and no significant changes in weight HEENT: no frequent or significant headaches, no changes in hearing. Recently diagnosed with macular degeneration. Respiratory: no cough, no wheezing, no shortness of breath Cardiovascular: no chest pain, no chest pressure, no palpitations and no swelling Endocrine: no fatigue, no constipation, no diarrhea, no LE edema, no weight gain, no weight loss and no cold intolerance Psych: Stress due to health issues. is struggling with depression and he gets frustrated with her sometimes. Patient has history of depression and anxiety. Taking Zoloft 200 mg daily, feels like it is effective and does not think he is depressed. 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/08/2008 - Gout 04/01/2011 - HYPERGLYCEMIA 07/19/2005 - HYPERLIPIDEMIA NEC/NOS 07/19/2005 - HYPERTENSION NOS 09/03/2007 - Hypertrophy of prostate without urinary obstruction and other lower urinary tract symptoms (LUTS) - Impaired fasting blood sugar 07/19/2005 - Internal hemorrhoids without mention of complication - IRON DEFIC ANEMIA NEC 07/19/2005 - Macular degeneration (senile) of retina, unspecified - MALIGN NEOPL PROSTATE 05/23/2005 - Other pulmonary embolism without acute cor pulmonale (HCC) 01/27/2017 - Personal history of colonic polyps - Pulmonary embolism (HCC) - PULMONARY NODULES 06/03/2006 - Rosacea 02/25/2007 - Skin cancer of face [place]. - Unspecified asthma(493.90) PAST SURGICAL HISTORY Procedure Laterality Date - APPENDECTOMY 11-02-14 - COLONOS W/REM POLYP SNARE 07/25/05 - COLONOS W/REM POLYP SNARE 01/17/11 - COLONOSCOP W/ OR W/O BRSH SPEC 07/28/14 Colonoscopy - COLONOSCOP W/ OR W/O BRSH SPEC 12-20-15 - COLONOSCOPY - DIAGNOSTIC 03/02/2003 - EGD W/O OR W/BRUSH/WASH 04/17/15 EGD - KNEE SCOPE,DIAGNOSTIC 1998 LEFT - LAP COLECTMY W/ILEUM/ILEOCOL 11-02-14 WITH INCISIONAL HERNIA REPAIR - LAPAROSCOPIC HEMICOLECTOMY 11-02-14 - REMV PROSTATE,PERINEAL,RADICAL 11/28/2003 - REPAIR ROTATOR CUFF,ACUTE 03/04/2002 Rotator cuff repair Left - REPAIR UMBILICAL BAKARI,5+Y/O,REDUC 03/01/1996 Hernia repair, umbilical ANDgt;5yr - REVISE MEDIAN N/CARPAL TUNNEL SURG , Carpal tunnel decomp R, L - TOTAL HIP REPLACEMENT 07/26/2013 Hip replacement, total, LEFT, Dr. Rojas - TOTAL KNEE REPLACEMENT 06/2008 left knee ALLERGIES Indocin [Indomethacin Sodium]; Percocet [Oxycodone-Acetaminophen]; Seasonal Allergies MEDICATIONS rivaroxaban (XARELTO) 20 mg tablet Take 1 tablet by mouth daily with dinner. omeprazole (PRILOSEC) 20 mg capsule Take 1 capsule by mouth daily before breakfast. 1/2 hr before meal. lisinopril (ZESTRIL, PRINIVIL) 20 mg tablet Take 1 tablet by mouth once daily. sertraline (ZOLOFT) 100 mg tablet Take 1 tablet by mouth twice daily. atorvastatin (LIPITOR) 10 mg tablet take 1 tablet by mouth at bedtime guaiFENesin (MUCINEX) 600 mg 12 hr tablet Take 1 tablet by mouth twice daily. leflunomide (ARAVA) 10 mg tablet Take 10 mg by mouth once daily. 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 Dx: Unsteady gait - ICD9: 781.2, ICD10: R26.81; Uncomplicated severe persistent asthma - ICD9: 493.90, ICD10: J45.50. rivaroxaban (XARELTO) 20 mg tablet Take 1 tablet by mouth daily with dinner for 159 days. nystatin-triamcinolone (MYCOLOG II) cream Apply 1 application to affected area twice daily as needed. Genital rash. azelastine (ASTELIN,ASTEPRO) 0.1% nasal spray instill 2 sprays into each nostril twice a day ipratropium-albuterol (DUONEB) 0.5 mg-3 mg(2.5 mg base)/3 mL nebu Inhale 3 mL as instructed four times daily as needed. by nebulizer over 5 to 15 minutes. fluticasone (FLONASE) 50 mcg/actuation nasal spray instill 2 sprays into each nostril twice a day COMPOUNDED PRESCRIPTION Polypodium Leucotomos extract (Daily Defense). Take 2 capsules once a day. 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 montelukast (SINGULAIR) 10 mg tablet Take 1 tablet by mouth daily at bedtime. ADVAIR HFA 230-21 mcg/actuation inhaler inhale 2 puffs as directed twice a day USE WITH SPACER RINSE MOUTH AFTER USE EPINEPHrine (EPIPEN) 0.3 mg/0.3 mL auto-injector Inject 0.3 mL intramuscularly as needed. albuterol HFA (PROVENTIL HFA) 90 mcg/actuation inhaler Inhale 2 Puffs as instructed. polyethylene glycol 3350 (MIRALAX, GLYCOLAX) 17 gram/dose powder Take 17 g by mouth once daily. Take one (1) capful in 8oz of liquid each day. ferrous sulfate 325 mg (65 mg iron) tablet Take one(1) tablet two(2) times daily. multivitamin tablet Take 1 tablet by mouth once daily. ipratropium (ATROVENT) 0.02 % nebulizer solution 500 mcg (one ampule) nebulized four times a day as needed. Vitamin A-Vit C-Vit E-Zinc-Cu (OCUVITE PRESERVISION) ORAL Tab Take one(1) tablet two(2) times daily. FAMILY HISTORY Problem Relation Age of Onset - Diabetes Father - Colon Cancer Father - Asthma Mother - Diabetes Sister - Colon Cancer Sister Social History Substance Use Topics - Smoking status: Never Smoker - Smokeless tobacco: Never Used Comment: Father smoked in childhood home. No household smoke exposure since. 05/2014. - Alcohol use No PHYSICAL EXAM BP 123/77 (BP Site: Left Arm, BP Position: Sitting, BP Cuff Size: Large Adult) Pulse 78 Temp 36.8 ?C (98.3 ?F) (Temporal Artery) Resp 16 Wt 96.6 kg (213 lb) SpO2 94% BMI 34.38 kg/m2 Appearance: well dressed well groomed, cooperative and pleasant Behavior: good eye contact and tense Speech: fluent and coherent Mood: anxious Affect: constricted Skin: Skin color, texture, turgor normal for age; Eyes: PERRLA, EOM's intact, conjunctiva pink and moist, no icterus, sclera white, non-injected Neck: Thyroid normal size and symmetric without palpable nodules, No bruits, Neck supple, No adenopathy Oropharynx: lips normal without lesions, tongue midline and normal, soft palate, uvula, and tonsils normal Lymph nodes: No supraclavicular lymphadenopathy Lungs: Lungs clear to auscultation. No wheezing, rhonchi, rales Heart: RRR without murmur, gallop, or rubs. No ectopy Abdomen: Abdomen soft, non-tender. Bowel sounds normal. No masses, organomegaly but difficult to evaluate due to obese abdomen Neurological: Negative findings: speech normal, mental status intact, cranial nerves 2-12 intact, muscle strength normal, reflexes normal and symmetric, gait normal Ext: no edema in LE bilaterally, good distal pulses COLORECTAL CANCER SCREENING,SEE MODIFIER due on 12/18/2018 DIABETES SCREEN due on 02/29/2020 LIPID SCREEN due on 08/20/2021 TETANUS due on 02/21/2026 PROSTATE CANCER SCREENING DISCUSSION Completed ADULT PREVNAR-13 Completed INFLUENZA Completed PNEUMOVAX AGE 65 AND OVER WITH 5YR LOOKBACK Completed [place] MMSE 07/21/[address] 5 REGISTRATION 3 ATTENTION ANDamp; CALCULATION 5 RECALL 2 LANGUAGE 2 REPEAT 1 FOLLOW 3-STEP COMMAND 3 READ AND OBEY 1 WRITE A SENTENCE 1 COPY 1 SCORE 28 HEARING IMPAIRED No VISION IMPAIRED No Interpretation of: MME- 1. normal cognitive function = 27-30 2. mild cognitive impairment = 21-26 3. moderate cognitive impairment = 11-20 4. severe cognitive impairment = 0-10. ASSESSMENT/PLAN: 1. Short-term memory loss - ICD9: 780.93, ICD10: R41.3 (primary diagnosis) Etiology unclear. Exam benign. MMSE 28. Ability to manage personal finances, knowledge of personal and current events, ability to follow directions, ability to find appropriate words, sense of time (day, year, season) and sense of place (knows where he/she is). Dementia is not likely. Work-up with: - VITAMIN B12 BLOOD - CBC + DIFF - COMP METABOLIC PANEL - TSH BLD Symptoms likely due to depression and anxiety. Discussed with patient . If labs are normal will need to follow-up for possible medication adjustment 2. Forgetfulness - ICD9: 780.99, ICD10: R68.89 As above - VITAMIN B12 BLOOD - CBC + DIFF - COMP METABOLIC PANEL - TSH BLD 3. Anxiety and depression - ICD9: 300.00, 311, ICD10: F41.8 As above Prescription instructions reviewed with patient as applicable. Potential red flag symptoms discussed with the patient. Reviewed appropriate action plan to take if red flag symptoms occur. Patient agreeable to treatment plan. Elena Monterroso CNP Referring Provider: SELF [[id number]] Allergies As of Date: 07/21/2017 Noted Allergy Reaction INDOCIN (INDOMETHACIN SODIUM) 04/01/2011 14 - Other: See Comments Comments: Wheezing, can take naprosyn PERCOCET (OXYCODONE-ACETAMINOPHEN)01/08/2005 9 - Itching SEASONAL ALLERGIES 11/12/2012 14 - Other: See Comments Comments: Cat, Goats, Dust mites, molds, trees, grasses, weed, ragweed Date Reviewed: 07/21/2017 Reviewed by: Kait Velazquez Senior Structural Engineer - Fully Assessed Reason for Visit: memory issues [Other] Primary Visit Diagnosis:Short-term memory loss [R41.3] Other Visit Diagnoses:Forgetfulness [R68.89] Anxiety and depression [F41.8] Order(s):VITAMIN B12 BLOOD [SQB12] Order #: [id number] FUTURE CBC + DIFF [SQCBCDIF] Order #: [id number] FUTURE COMP METABOLIC PANEL [SQCMP] Order #: [id number] FUTURE TSH BLD [SQTSH] Order #: [id number] FUTURE Prescriptions as of 07/21/2017 Sig: RIVAROXABAN 20 MG TABLET Take 1 tablet by mouth daily * OMEPRAZOLE 20 MG CAPSULE,ALEX* Take 1 capsule by mouth daily* LISINOPRIL 20 MG TABLET Take 1 tablet by mouth once d* SERTRALINE 100 MG TABLET Take 1 tablet by mouth twice * ATORVASTATIN 10 MG TABLET take 1 tablet by mouth at bed* GUAIFENESIN ER 600 MG TABLET,* Take 1 tablet by mouth twice * LEFLUNOMIDE 10 MG TABLET Take 10 mg by mouth once christiano* VENTOLIN HFA 90 MCG/ACTUATION* inhale 2 puffs every 4 hours * SPIRIVA WITH HANDIHALER 18 MC* inhale the contents of one ca* NYSTATIN-TRIAMCINOLONE 100,00* Apply 1 application to affect* AZELASTINE 137 MCG (0.1 %) NA* instill 2 sprays into each no* IPRATROPIUM-ALBUTEROL 0.5 MG-* Inhale 3 mL as instructed fou* FLUTICASONE 50 MCG/ACTUATION * instill 2 sprays into each no* COMPOUNDED PRESCRIPTION Polypodium Leucotomos extract* MONTELUKAST 10 MG TABLET Take 1 tablet by mouth daily * ADVAIR HFA 230 MCG-21 MCG/ACT* inhale 2 puffs as directed tw* EPINEPHRINE 0.3 MG/0.3 ML INJ* Inject 0.3 mL intramuscularly* ALBUTEROL SULFATE HFA 90 MCG/* Inhale 2 Puffs as instructed. POLYETHYLENE GLYCOL 3350 17 G* Take 17 g by mouth once daily* FERROUS SULFATE 325 MG (65 MG* Take one(1) tablet two(2) link* Patient taking differently: Take by mouth once daily. Ta* MULTIVITAMIN TABLET Take 1 tablet by mouth once d* IPRATROPIUM BROMIDE 0.02 % SO* 500 mcg (one ampule) nebulize* PRESERVISION AREDS 7,160 UNIT* Take one(1) tablet two(2) link* Problem List As Of Date 07/21/2017 Noted Resolved Asthma [J45.909] CHRONIC RHINITIS [J31.0] BPH without obstruction/lower urinary tract sym* ANXIETY STATE NOS [F41.1] 08/05/2014 Depression with anxiety [F41.8] Diverticulosis of colon (without mention of hem* 10/06/2012 ESOPHAGEAL REFLUX [K21.9] Internal hemorrhoids without mention of complic* 08/30/2010 Malignant neoplasm of prostate (HCC) [C61] INVALID FOR*08/05/2014 MACULAR DEGENERATION NOS [H35.30] Other specified iron deficiency anemias [D50.8] INVALID FOR*08/30/2010 Impaired fasting blood sugar [R73.01] INVALID FOR* Hyperlipidemia [E78.5] INVALID FOR* Personal history of colonic polyps [Z86.010] INVALID FOR*09/30/2011 More... FAMILY HX COLON CANCER [Z80.0] INVALID FOR* PULMONARY NODULES [J98.4] INVALID FOR*10/06/2012 More... 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] INVALID FOR* Essential hypertension [I10] INVALID FOR* Generalized osteoarthritis of multiple sites [M*INVALID FOR* Benign neoplasm of rectum and anal canal [D12.8*INVALID FOR*10/06/2012 Benign neoplasm of colon [D12.6] INVALID FOR* Gout [M10.9] INVALID FOR* Venous insufficiency of leg [I87.2] INVALID FOR* Iron deficiency anemia due to chronic blood los*INVALID FOR* Inflammatory polyarthropathy of multiple sites *INVALID FOR* Unsteady gait [R26.81] INVALID FOR* Uncomplicated severe persistent asthma [J45.50] INVALID FOR* Other pulmonary embolism without acute cor pulm*INVALID FOR* Pulmonary hypertension (HCC) [I27.20] INVALID FOR* Medications Discontinued During This Encounter rivaroxaban (XARELTO) 20 mg tablet 90 t* 1 02/19/2017 07/21/2017 Route: ORAL Sig: Take 1 tablet by mouth daily with dinner for 159 days. Disc: Reason for discontinue is not on file. COMPOUNDED PRESCRIPTION 1 Ea* 0 01/30/2017 07/21/2017 Class: Print RX Sig: ROLLATOR WALKER W/ SEAT. Dx: Unsteady gait - ICD9: 781.2, ICD10: R26.81; Uncomplicated severe persistent asthma - ICD9: 493.90, ICD10: J45.50. Disc: Reason for discontinue is not on file. Encounter Status:Closed by OLDER, ELENA SIGNAL OPERATOR on 07/22/17 COMPREHENSIVE METABOLIC Collected: 07/10/2017 Status: F Source: BRENDA LOYA 2:02 PM [facility] [place] REPOSITORY TYPE CODE TESTS RESULT OUT OF RANGE REFERENCE UNITS LAB L501.0100 74-106 mg/dL Normal GLU 101 Result Comment: Fasting Glucose result from 100 to 125 mg/dL suggests IMPAIRED HOMEOSTASIS per A.D.A. criteria. Please note revised GLUCOSE reference range effective 2017. LAB L501.1000 7-18 mg/dL High BUN 25 LAB L501.1100 0.70-1.30 mg/dL Normal CREAT,SERUM 1.06 Result Comment: The validity of the calculated GFR AND GFRAA in patients over 70 years has not been determined. Clinical correlation is essential. LAB L501.1110 >60 mL/min Normal EST GFR 72 Result Comment: Non- GFR Calc LAB L501.1115 >60 mL/min Normal EST GFR - AA 87 Result Comment: GFR Calc LAB L501.1300 10-20 RATIO High BUN/CRE 23.6 LAB L501.1500 6.4-8.2 g/dL T Normal PROT 7.7 LAB L501.1800 3.2-5.0 g/dL Normal ALB 3.4 LAB L501.1950 2.2-4.2 g/dL High GLOB 4.3 LAB L501.2000 0.9-2.4 RATIO Low A/G 0.8 LAB L501.2200 8.5-10.1 mg/dL CA Normal 8.7 LAB L501.4100 15-37 U/L Normal AST 28 LAB L501.4305 45-117 U/L Normal ALK P 77 LAB L501.4405 16-61 U/L Normal ALT 36 Result Comment: Please note revised ALT reference range effective 2017. LAB L501.4600 0.20-1.00 mg/dL Normal T BILI 0.40 LAB L501.5300 136-145 mmol/L Normal NA 137 LAB L501.5600 3.5-5.1 mmol/L Normal K 4.7 LAB L501.5900 98-107 mmol/L Normal CL 106 LAB L501.6100 21.0-32.0 mmol/L Normal CO2 24.0 LAB L501.6200 5-15 Normal GAP 7 Performed By: #### L500.4056 #### [facility] [place], [address] CBC W/DIFF, AUTOMATED Collected: 07/10/2017 Status: F Source: [place] 2:02 PM [facility] [place] REPOSITORY TYPE CODE TESTS RESULT OUT OF RANGE REFERENCE UNITS LAB L100.1000 4.4-11.0 K/mm3 Normal WBC 7.0 LAB L100.1200 4.6-6.2 M/mm3 Low RBC 4.52 LAB L100.1300 13.0-16.5 g/dl Low HGB 12.7 LAB L100.1400 40-54 % Normal HCT 40.1 LAB L100.1500 80-94 fL Normal MCV 88.7 LAB L100.1600 27.0-32.0 pg Normal MCH 28.1 LAB L100.1700 32-36 g/gl Low MCHC 31.7 LAB L100.1810 11.6-14.6 % High RDW CV 15.7 LAB L100.1820 35.1-43.9 fl High RDW SD 50.3 LAB L100.1900 150-450 K/mm3 Normal PLT 230 LAB L100.2000 6.2-12.0 fl Normal MPV 10.4 LAB L100.2100 47-70 % High NEUT% 71.4 LAB L100.2200 19-41 % Low LY% 17.5 LAB L100.2300 0-10 % Normal MONO% 9.3 LAB L100.2400 0-5 % Normal EO% 1.0 LAB L100.2500 0-1 % Normal BASO% 0.1 LAB L100.2550 0.0-0.9 % Normal IM GRAN % 0.700 Result Comment: IG% - Immature Granulocytes (promyelocytes, myelocytes and metamyelocytes) > 1% indicates that a LEFT SHIFT is Present. LAB L100.2620 2.0-7.7 X10 3/uL Normal Absolute Neut 5.0 LAB L100.2720 0.83-4.51 X10 3/ul Normal Absolute Lymph 1.23 Performed By: #### L100.0100 #### [facility] [address] [place], [address] PROGRESS Observed: 07/10/2017 Status: COMPLETED Source: [place] 12:55 PM [facility] REPOSITORY HNO ID: [id number] Author: Leni Mcbride Service: (none) Author Type: Physician Truck Repair Supervisor Type: Progress Notes Filed: 07/10/2017 1:43 PM Note Text: [facility] Respiratory [place]: INTERVAL HISTORY: The patient is here for follow up of asthma. Since the last visit 07/10/17, patient was evaluated at [facility] ER 06/22/17 for increased shortness of breath. CXR at that time revealed patchy left basilar consolidations possibly representing pneumonia. Patient was treated with DuoNeb treatments x 2 and PO Levaquin. Diagnosis community acquired pneumonia. Today, patient states he feels better. The patient has been compliant with therapy recommended at the last visit. 4 times daily rescue bronchodilator use, with good relief. Uses nebulizer if he is feeling really short of breath. No cough or sputum. No pleuritic chest pain. No wheezing. Morning dyspnea until uses inhalers. Walks dog daily approximately 1/4 mile. Reports lower extremity edema. PMH: Reviewed with patient today. No changes. FAMH: Reviewed with patient today. No changes. SOCH: No changes. ROS: General: Generally feels good. Eyes: No blurred vision, eye pain. Vision changes due to macular degeneration. Ears, nose, throat: No post nasal drip, rhinorrhea, purulent nasal discharge, hoarseness. Cardiac: No angina, orthopnea, paroxysmal nocturnal dyspnea, palpitations. Lower extremity edema. GI: No heartburn, dysphagia. Uro/PUMP ERECTOR: No dysuria, hesitancy. Neuro/Psych: No headache, focal weakness, tremor. Sleeps well.. Skin: No rash. Otherwise negative. Immunization History Administered Date(s) Administered Influenza Seasonal - High Dose - Age 65+ 01/25/2014 01/20/2016 01/30/2017 Influenza Seasonal Inj Age 3+ 02/01/2015 Influenza Vaccine, Split-Non Spec 03/17/2006 03/17/2007 03/23/2008 02/11/2009 03/08/2010 02/16/2011 02/21/2012 01/21/2013 Pneumococcal-13 Vac Conjugate 02/22/2015 10/10/2015 Pneumovax 06/04/2000 09/17/2010 TD Adult 11/10/2006 Tetanus Diphtheria Booster (Age >7) Pres Free 02/22/2016 Zostavax 04/01/2011 Allergies were verified and updated, and medications were reconciled with the patient at this visit. PHYSICAL EXAMINATION: BP 108/62 Pulse 70 Resp 16 Wt 211 lb (95.7kg) SpO2 95% Body mass index is 34.06 kg/(m2). Gen: No acute distress. Cooperative with examination. ENT: Sclerae clear. EOMI. Nares clear. Oral hygeine/dentition good. Pharynx clear. Resp: No stridor, accessory respiratory muscle use, supra- sternal or intercostal retractions. No crackles, wheezes, rubs. CV: Regular rythm. Heart tones normal. Radial pulses normal. Abd: Non distended. MSK: No kyphoscoliosis, joint deformities. Ext: Warm and well perfused. No clubbing, cyanosis. Trace bilateral lower extremity edema. No calf tenderness bilaterally. Skin: Color normal. Texture normal. No rash, eczema, urticaria. Ecchymosis LLL, no warmth. No sign of cellulitis. Neuro: Mental status normal. Affect normal. Muscle tone normal. No tremor. DATA REVIEW: CXR from [facility] ED 06/22/17: patchy left basilar consolidations possibly representing pneumonia. IMPRESSION and RECOMMENDATIONS: 1. Pneumonia of left lower lobe due to infectious organism. -Patient symptomatically improved. CXR ordered by PCP office. Further recommendations to follow. 2. Asthma, severe persistent. -Continue Mucinex 1 tablet twice daily. -Continue Advair 2 inhalations twice daily and Spiriva 1 inhalation in the morning. Rinse mouth afterwards. -Albuterol rescue inhaler 2 inhalations up to every 4 hours as needed for shortness of breath/wheezing. You may use your rescue inhaler prior to increased activity and exertion. -Up to date on influenza and pneumonia vaccinations. ?? 3. Pulmonary Embolism - Started Xarelto 01/28/17. Will stay on for 6 months (July 2017). At that time, we will do hypercoagulable studies. -Nosebleeds since air is snuff drier. Suggest saline nasal spray and/or vaseline. Drink plenty of fluids. ? 4. Pulmonary Hypertension, multifactorial - Echo 05/02/[address] Verma. Improved right ventricular strain. - I reviewed the pathophysiology of asthma, NIH guidelines for evaluation and management, and mechanisms of action and side effects of medical therapy (ICS, bronchodilators) with the patient. I addressed the questions of the patient and , and they expressed understanding and acceptance of my answers. Leni Mcbride PA-C [facility] Respiratory [place] [facility] [address] [place] [address] PROGRESS Observed: 06/27/2017 Status: COMPLETED Source: [place] 2:42 PM [facility] REPOSITORY HNO ID: [id number] Author: Ted Henderson) Ronnie Service: (none) Author Type: Nurse Practitioner Type: Progress Notes Filed: 06/27/2017 3:29 PM Note Text: CC: Patient presents with: Recheck: Follow up, pneumonia HPI Carissa Yip is a 76 year old male who presents today for [facility] ER follow up from 06/22/17. Patient presented with SOB x2 days prior that was worse with exertion. EKG completed, showed Sinus Tach HR103.Lab work was grossly unremarkable. CXR revealed patchy left basilar consolidations possibly representing pneumonia. Patient was treated with DuoNeb treatment x2 and PO Levaquin while in the ER. Diagnosed with community acquired pneumonia. Discharged home with Levaquin x4 days and albuterol use at home as needed. Overall patient reports he is feeling better. Reports loose productive cough with yellowish greenish sputum, SOB on exertion and intermittent wheezing. Denies fever chills chest pain, abdominal pain, nausea, vomiting or diarrhea. Completed course of antibiotics yesterday. Continues to use inhaler or nebulizer every 4 hours as needed. REVIEW OF SYSTEMS General: no fevers, no chills, no recurrent infections, no change in appetite, no change in energy and no significant changes in weight HEENT: no frequent or significant headaches, no changes in hearing, no visual changes, no nose bleeds, no sinus or nasal problems Neck: no lumps, no pain and swelling Respiratory: no hemoptysis Cardiovascular: no chest pain, no chest pressure, no palpitations and Positive for: no swelling GI: No nausea, vomiting, or diarrhea PAST MEDICAL HISTORY Diagnosis Date - Anxiety state, unspecified - Benign neoplasm of colon - Chronic rhinitis - Colon polyp 10/2014 - Depressive disorder, not elsewhere classified - Diverticulosis of colon (without mention of hemorrhage) - Esophageal reflux - Family history of malignant neoplasm of gastrointestinal tract - GENERAL OSTEOARTHROSIS 04/08/2008 - Gout 04/01/2011 - HYPERGLYCEMIA 07/19/2005 - HYPERLIPIDEMIA NEC/NOS 07/19/2005 - HYPERTENSION NOS 09/03/2007 - Hypertrophy of prostate without urinary obstruction and other lower urinary tract symptoms (LUTS) - Impaired fasting blood sugar 07/19/2005 - Internal hemorrhoids without mention of complication - IRON DEFIC ANEMIA NEC 07/19/2005 - Macular degeneration (senile) of retina, unspecified - MALIGN NEOPL PROSTATE 05/23/2005 - Other pulmonary embolism without acute cor pulmonale (HCC) 01/27/2017 - Personal history of colonic polyps - Pulmonary embolism (HCC) - PULMONARY NODULES 06/03/2006 - Rosacea 02/25/2007 - Skin cancer of face [place]. - Unspecified asthma(493.90) PAST SURGICAL HISTORY Procedure Laterality Date - APPENDECTOMY 11-02-14 - COLONOS W/REM POLYP SNARE 07/25/05 - COLONOS W/REM POLYP SNARE 01/17/11 - COLONOSCOP W/ OR W/O [facility] SPEC 07/28/14 Colonoscopy - COLONOSCOP W/ OR W/O [facility] SPEC 12-20-15 - COLONOSCOPY - DIAGNOSTIC 03/02/2003 - EGD W/O OR W/BRUSH/WASH 04/17/15 EGD - KNEE SCOPE,DIAGNOSTIC 1998 LEFT - LAP COLECTMY W/ILEUM/ILEOCOL 11-02-14 WITH INCISIONAL HERNIA REPAIR - LAPAROSCOPIC HEMICOLECTOMY 11-02-14 - REMV PROSTATE,PERINEAL,RADICAL 11/28/2003 - REPAIR ROTATOR CUFF,ACUTE 03/04/2002 Rotator cuff repair Left - REPAIR UMBILICAL BAKARI,5+Y/O,REDUC 03/01/1996 Hernia repair, umbilical >5yr - REVISE MEDIAN N/CARPAL TUNNEL SURG , Carpal tunnel decomp R, L - TOTAL HIP REPLACEMENT 07/26/2013 Hip replacement, total, LEFT, Dr. Rojas - TOTAL KNEE REPLACEMENT 06/2008 left knee ALLERGIES Indocin [Indomethacin Sodium]; Percocet [Oxycodone-Acetaminophen]; Seasonal Allergies MEDICATIONS omeprazole (PRILOSEC) 20 mg capsule Take 1 capsule by mouth daily before breakfast. 1/2 hr before meal. lisinopril (ZESTRIL, PRINIVIL) 20 mg tablet Take 1 tablet by mouth once daily. sertraline (ZOLOFT) 100 mg tablet Take 1 tablet by mouth twice daily. atorvastatin (LIPITOR) 10 mg tablet take 1 tablet by mouth at bedtime guaiFENesin (MUCINEX) 600 mg 12 hr tablet Take 1 tablet by mouth twice daily. leflunomide (ARAVA) 10 mg tablet Take 10 mg by mouth once daily. 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 Dx: Unsteady gait - ICD9: 781.2, ICD10: R26.81; Uncomplicated severe persistent asthma - ICD9: 493.90, ICD10: J45.50. rivaroxaban (XARELTO) 20 mg tablet Take 1 tablet by mouth daily with dinner for 159 days. nystatin-triamcinolone (MYCOLOG II) cream Apply 1 application to affected area twice daily as needed. Genital rash. azelastine (ASTELIN,ASTEPRO) 0.1% nasal spray instill 2 sprays into each nostril twice a day ipratropium-albuterol (DUONEB) 0.5 mg-3 mg(2.5 mg base)/3 mL nebu Inhale 3 mL as instructed four times daily as needed. by nebulizer over 5 to 15 minutes. fluticasone (FLONASE) 50 mcg/actuation nasal spray instill 2 sprays into each nostril twice a day COMPOUNDED PRESCRIPTION Polypodium Leucotomos extract (Daily Defense). Take 2 capsules once a day. 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 montelukast (SINGULAIR) 10 mg tablet Take 1 tablet by mouth daily at bedtime. ADVAIR HFA 230-21 mcg/actuation inhaler inhale 2 puffs as directed twice a day USE WITH SPACER RINSE MOUTH AFTER USE EPINEPHrine (EPIPEN) 0.3 mg/0.3 mL auto-injector Inject 0.3 mL intramuscularly as needed. albuterol HFA (PROVENTIL HFA) 90 mcg/actuation inhaler Inhale 2 Puffs as instructed. polyethylene glycol 3350 (MIRALAX, GLYCOLAX) 17 gram/dose powder Take 17 g by mouth once daily. Take one (1) capful in 8oz of liquid each day. ferrous sulfate 325 mg (65 mg iron) tablet Take one(1) tablet two(2) times daily. multivitamin tablet Take 1 tablet by mouth once daily. ipratropium (ATROVENT) 0.02 % nebulizer solution 500 mcg (one ampule) nebulized four times a day as needed. Vitamin A-Vit C-Vit E-Zinc-Cu (OCUVITE PRESERVISION) ORAL Tab Take one(1) tablet two(2) times daily. FAMILY HISTORY Problem Relation Age of Onset - Diabetes Father - Colon Cancer Father - Asthma Mother - Diabetes Sister - Colon Cancer Sister Social History Substance Use Topics - Smoking status: Never Smoker - Smokeless tobacco: Never Used Comment: Father smoked in childhood home. No household smoke exposure since. 05/2014. - Alcohol use No PHYSICAL EXAM BP 112/66 Pulse 96 Temp 36.7 ?C (98 ?F) (Temporal Artery) Resp 16 Wt 96.6 kg (213 lb) SpO2 95% BMI 34.38 kg/m2 General Appearance: well appearing, in no acute distress, alert Skin: Skin color, texture, turgor normal for age; mild busing to LLE Eyes: conjunctiva pink and moist, no icterus, sclera white, non-injected Lungs: Lungs clear to auscultation. No wheezing, rhonchi, rales Heart: RRR without murmur, gallop, or rubs. No ectopy Bilateral lower Extremities: Edema: +1 pitting edema BLE, patient did not wear his compression stockings today COLORECTAL CANCER SCREENING,SEE MODIFIER due on 12/18/2018 DIABETES SCREEN due on 02/29/2020 LIPID SCREEN due on 08/20/2021 TETANUS due on 02/21/2026 PROSTATE CANCER SCREENING DISCUSSION Completed ADULT PREVNAR-13 Completed INFLUENZA Completed PNEUMOVAX AGE 65 AND OVER WITH 5YR LOOKBACK Completed ASSESSMENT/PLAN: 1. Pneumonia of left lower lobe due to infectious organism (HCC) - ICD9: 486, ICD10: J18.1 - Physical exam and symptom history reveals adequate recovery from illness. No concerning exam findings or need for further treatment - Will place order for future CXR to confirm full resolution - Patient may continue to use albuterol inhaler as needed - Discussed reg flag signs and symptoms and when to seek immediate medical attention. - XR CHEST 2V FRONTAL/LAT - Follow up with PCP as previously scheduled Prescription instructions reviewed with patient as applicable. Potential red flag symptoms discussed with the patient. Reviewed appropriate action plan to take if red flag symptoms occur. Patient agreeable to treatment plan. Ted Kramer CNP 12 LEAD ELECTROCARDIOGRAM Observed: 06/24/2017 Status: F Source: BRENDA 10:09 AM [facility] Cardiovascular Services [address] [place] [address] 12 Lead EKG 06/22/17 0742 MR#: [id number] Acct: [id number] Name: CARISSA YIP Rep #: [id number] : 1940 76 From: Jer Josue MD Attending Dr: Status: DEP ER Ordering Dr: Leni Valentine MD Date: 06/22/17 Location: ED Sex: M C Admitted: Test Reason : SOB Blood Pressure : / mmHG Vent. Rate : 103 BPM Atrial Rate : 103 BPM P-R Int : 116 ms QRS Dur : 094 ms QT Int : 326 ms P-R-T Axes : 035 048 012 degrees QTc Int : 427 ms Sinus tachycardia Otherwise normal ECG Confirmed by SINAI MOULTON, JER ([id number]), graphics editor YARON WOODS ([id number]) on 06/24/2017 10:09:14 AM Referred By: HAMMAD Confirmed By:JER JOSUE MD 06/24/17 1009 Date Jer Josue MD CC: Leni Valentine MD; Lambert Larios MD Signed EMERGENCY DEPARTMENT Observed: 06/22/2017 Status: F Source: BRENDA SUMMARY 11:59 AM [facility] Medical Records Department [address] [place] [address] Emergency Department Summary 06/22/17 0736 MR#: [id number] Acct: [id number] Name: CARISSA YIP Rep #: [id number] : 1940 76 From: Leni Valentine MD PCP: Lambert Larios MD Status: DEP ER - ER Visit Summary Date of Service: 06/22/17 Chief Complaint: Shortness of breath History of Present Illness: The patient is a 76 M with progressive shortness of breath for the past 2 days, especially with exertion. Patient denies chest pain. He has had mild cough with clear sputum. He has had mild wheezing. He uses albuterol inhalers approximately 4 hours. Past history significant for asthma, hypertension, high cholesterol, and PE. He is currently on Xarelto. Physical Examination: Blood pressure is 141/69, temperature 99.5, heart rate 109, respiratory rate 16, pulse ox 94% on room air. Patient is an obese gentleman sitting upright in bed. He is in no acute distress and is speaking full sentences. Head and neck examination is normal. Heart is regular rate and rhythm. Lung sounds are with occasional expiratory wheeze. Overall good air movement throughout. Abdomen is soft nontender. Lower external examination reveals no significant calf tenderness or edema. Test Results: EKG is sinus tach at [address] change. CBC was normal white count with a left shift. Chemistry studies are gross unremarkable. Troponin is less than 0.02. BNP is normal. Two-view chest x-ray reveals patchy left basilar consolidation possibly representing pneumonia. Unchanged calcified plaques are noted. Emergency Department Course and Treatment: Patient is given a DuoNeb treatment. On repeat evaluation had slight increased wheezing but better air movement throughout. Additional albuterol was given along with p.o. Levaquin. Patient was ambulated. His pulse ox dropped to 91% with ambulation the patient was conversational throughout. Patient be treated with 4 additional days of Levaquin. He has albuterol at home that he will use. He is encouraged to return if he worsens. Treatment Plan: [] Disposition: Discharge Impression: Community acquired pneumonia This note was generated with [employer] dictation software. It may contain incorrect words, spelling, and punctuation that were not noted in review of the chart prior to signing ED Disposition - Plan for ED Patient: Chief Complaint: Shortness of Breath Referrals: Lambert Larios MD [Primary Care Provider] - What to do if you have Problems For any increased pain, shortness of breath, bleeding, nausea or vomiting, chest pain, or any unexpected problems, contact your Primary Care Provider. Call [facility] ([phone]) or report to the closest Emergency Room. Call 911 if necessary. 06/22/17 1159 <Electronically signed by Leni Valentine MD> Date Leni Valentine MD Cosigner Signature (If Indicated): Date CC: Lambert Larios MD DISCHARGE INSTRUCTION Observed: 06/22/2017 Status: F Source: KINSTON 9:05 AM [facility] REPOSITORY [facility] Medical Records Department [address] [place] [address] Discharge Instruction 06/22/17903 MR#: [id number] Acct: [id number] Name: CAIRSSA YIP Rep #: [id number] : 1940 76 From: Leni Valentine MD PCP: Lambert Larios MD Status: REG ER ED Disposition - Plan for ED Patient: Disposition: Home or Assisted Living Chief Complaint: Shortness of Breath Instructions: ED Pneumonia Adult Prescriptions: Levofloxacin [Levaquin] 750 mg PO DAILY #4 tablet Referrals: Lambert Larios MD [Primary Care Provider] - 1 Week What to do if you have Problems For any increased pain, shortness of breath, bleeding, nausea or vomiting, chest pain, or any unexpected problems, contact your Primary Care Provider. Call [facility] ([phone]) or report to the closest Emergency Room. Call 911 if necessary. 06/22/17 0905 <Electronically signed by Leni Valentine MD> Date Leni Valentine MD Cosigner Signature (If Indicated): Date CC: Lambert Larios MD CBC W/DIFF, AUTOMATED Collected: 06/22/2017 Status: F Source: KINSTON 7:40 AM [facility] REPOSITORY TYPE CODE TESTS RESULT OUT OF RANGE REFERENCE UNITS LAB L100.1000 4.4-11.0 K/mm3 Normal WBC 9.0 LAB L100.1200 4.6-6.2 M/mm3 Low RBC 4.54 LAB L100.1300 13.0-16.5 g/dl Low HGB 12.7 LAB L100.1400 40-54 % Low HCT 39.5 LAB L100.1500 80-94 fL Normal MCV 87.0 LAB L100.1600 27.0-32.0 pg Normal MCH 28.0 LAB L100.1700 32-36 g/gl Normal MCHC 32.2 LAB L100.1810 11.6-14.6 % High RDW CV 16.3 LAB L100.1820 35.1-43.9 fl High RDW SD 51.9 LAB L100.1900 150-450 K/mm3 Low PLT 147 LAB L100.2000 6.2-12.0 fl Normal MPV 9.8 LAB L100.2100 47-70 % High NEUT% 82.4 LAB L100.2200 19-41 % Low LY% 6.5 LAB L100.2300 0-10 % High MONO% 10.6 LAB L100.2400 0-5 % Normal EO% 0.2 LAB L100.2500 0-1 % Normal BASO% 0.1 LAB L100.2550 0.0-0.9 % Normal IM GRAN % 0.200 Result Comment: IG% - Immature Granulocytes (promyelocytes, myelocytes and metamyelocytes) > 1% indicates that a LEFT SHIFT is Present. LAB L100.2620 2.0-7.7 X10 3/uL Normal Absolute Neut 7.4 LAB L100.2720 0.83-4.51 X10 3/ul Low Absolute Lymph 0.59 Performed By: #### L100.0100 #### [facility] [address] [place], [address] BASIC METABOLIC Collected: 06/22/2017 Status: F Source: BRENDA PROFILE (BMP) 7:40 AM [facility] REPOSITORY Order Comment: 'TROP' Serial specimen #1, #2, #3, or #4: 1 TYPE CODE TESTS RESULT OUT OF RANGE REFERENCE UNITS LAB L501.0100 74-106 mg/dL High GLU 138 Result Comment: Fasting Glucose result greater than or equal to 126 mg/dL suggests DIABETES MELLITUS per A.D.A. criteria. LAB L501.1000 7-18 mg/dL High BUN 20 LAB L501.1100 0.70-1.30 mg/dL Normal CREAT,SERUM 1.23 Result Comment: The validity of the calculated GFR AND GFRAA in patients over 70 years has not been determined. Clinical correlation is essential. LAB L501.1110 >60 mL/min Normal EST GFR 60 Result Comment: Non- GFR Calc LAB L501.1115 >60 mL/min Normal EST GFR - AA 73 Result Comment: GFR Calc LAB L501.1255 ml/min Normal Estimated CRCL 44.67 LAB L501.1300 10-20 RATIO Normal BUN/CRE 16.3 LAB L501.2200 8.5-10 mg/dL Normal .1 CA 8.9 LAB L501.5300 136-14 mmol/L Low 5 NA 135 LAB L501.5600 3.5-5. mmol/L Normal 1 K 4.0 LAB L501.5900 98-107 mmol/L Normal CL 103 LAB L501.6100 21.0-3 mmol/L Normal 2.0 CO2 22.0 LAB L501.6200 5-15 Normal GAP 10 Performed By: #### L500.2500, L501.4010 #### [facility] [address] [place], [place], [address] TROPONIN-I Collected: 06/22/2017 Status: F Source: BRENDA 7:40 AM [facility] REPOSITORY Order Comment: 'TROP' Serial specimen #1, #2, #3, or #4: 1 TYPE CODE TESTS RESULT OUT OF RANGE REFERENCE UNITS LAB L501.4010 <0.06 ng/mL Normal < 0.02 TROPONIN-I Result Comment: TROPONIN-I EXPECTED VALUES <0.05 NEGATIVE 0.06 - 0.59 AT RISK OF ND > OR = 0.60 SUGGEST ND Performed By: #### L500.2500, L501.4010 #### [facility] [address] [place], [address] BNP,B-TYPE NATRIURETIC Collected: 06/22/2017 Status: F Source: KINSTON PEPTIDE 7:40 AM [facility] REPOSITORY TYPE CODE TESTS RESULT OUT OF RANGE REFERENCE UNITS LAB L503.6620 0-100 pg/mL Normal B-TYPE 27.7 GIORGI PEP Performed By: #### L503.6620 #### [facility] [address] [place], [address] CHEST PA AND LATERAL Observed: 06/22/2017 Status: F Source: BRENDA 7:34 AM [facility] REPOSITORY [facility] Imaging Services [address] [address] Chest PA and Lateral MR#: [id number] Acct: [id number] Name: CARISSA YIP Rep #: [id number] : 1940 M 76 From: Yessenia Woods MD PCP: Lambert Larios MD Status: REG ER Study: Chest PA and Lateral Date of Exam: 06/22/17 Exam# [id number] Ordering Dr: Leni Valentine MD STUDY: X-RAY CHEST REASON FOR EXAM: Male, 76 years old. Shortness of breath. TECHNIQUE: PA and lateral views of the chest. COMPARISON: July 14, 2015. FINDINGS: There is mild elevation of the right hemidiaphragm. The left lung is expanded. There is interstitial thickening visible in both lungs. There is left basilar airspace consolidation. There are multiple calcifications probably related to calcified pleural plaques. This is unchanged since the previous radiograph. There is borderline cardiomegaly. Normal mediastinum and mamadou. Normal visualized pulmonary arteries. There is atherosclerotic calcification of the aortic arch with tortuosity. There is demineralization of the osseous structures. The patient has had previous surgery on the left shoulder. There is no demonstrated abnormality of the visualized soft tissue structures of the upper abdomen. RAD/Chest PA and Lateral IMPRESSION: 1. Patchy left basilar airspace consolidation possibly representing pneumonia. 2. Unchanged appearance to calcified pleural plaques. Electronically Signed: Yessenia Woods MD at 8:54 EST , Service support , CC: Leni Valentine MD; Lambert Larios MD Orthotics Prosthetics Assistant: Signed ALLERGIES ALLERGIES DATE TYPE / CODE NAME / CODE REACTION SEVERITY SOURCE 05/01/2018 Drug oxycodone Itching Unknown [place] Allergy/416 HCl/[id number](RXNO Community 273563([facility] ED CT) Repository 05/01/2018 Drug indomethacin Itching Unknown [place] Allergy/416 sodium/[id number](R Community 629555([facility] ED CT) Repository 05/01/2018 Drug indomethacin/J89799 Itching Unknown [place] Allergy/416 2373(RXNORM) Community 920531([facility] ED CT) Repository 11/12/2012 Environ/420 SEASONAL ALLERGIES OTHER: SEE C [facility] 698391([facility] ED CT) Repository 04/01/2011 DRUG/317437 INDOMETHACIN SODIUM OTHER: SEE C High [facility] 003([facility] CT) Repository 01/08/2005 DRUG/049613 OXYCODONE-ACETAMINO ITCHING [facility] 003( [place] CT) Repository NG/[id number] INDOMETHACIN SODIUM [facility] 6([facility] CT) Repository NG/[id number] OXYCODONE-ACETAMINO [facility] 6([facility] CT) Repository NG/[id number] SEASONAL ALLERGIES [facility] 6( System CT) Repository ENCOUNTERS ENCOUNTERS ADMIT/DISCHARGE ACCOUNT NUMBER ADMITTING ENCOUNTER LOCATION SOURCE CLASS 05/27/2018/05/27/19 [id number] Ambulatory [address] Other [place] Repository 05/27/2018/05/27/19 [id number] Ambulatory [address] System MEDICAL Repository CENTERBuildi ng:AKUF 05/22/2018/05/25/19 [id number] Ambulatory [facility] [place] Repository 05/20/2018/05/20/19 [id number] Ambulatory Trade 19 [facility] Main [place] Repository 05/20/2018/05/20/19 [id number] Ambulatory [facility] [place] Repository 05/20/2018/05/20/19 [id number] Ambulatory [facility] 19 [facility] [place] Repository 05/17/2018/05/18/20 [id number] Ambulatory Trade 18 [facility] [place] Repository 05/14/2018/05/21/19 [id number] Ambulatory Trade 19 [facility] Main [place] Repository 05/14/2018/05/14/20 [id number] Ambulatory Trade 18 [facility] [place] Repository 05/14/2018/05/14/20 [id number] Ambulatory Trade 18 [facility] [place] Repository 05/06/2018 [id number] Ambulatory [facility] ding:[place] Repository 05/04/2018 [id number] Ambulatory [facility] ding:CVS Repository 05/04/2018 [id number] Ambulatory BMSBuilding: [facility] Repository 05/01/2018/05/01/20 [id number] Emergency [address] ding:ED Repository 04/13/2018/04/14/20 [id number] Ambulatory [address] [place] Repository 04/07/2018/04/07/20 [id number] Ambulatory [address] Main [place] Repository 04/01/2018/04/02/20 [id number] Ambulatory Trade 18 [facility] Main [place] Repository 03/30/2018/04/01/20 [id number] Ambulatory [address] Main [place] Repository 03/29/2018 [id number] Ambulatory [facility] ding:WC Repository 03/27/2018/03/30/20 [id number] Ambulatory Trade 18 [facility] [place] Repository 03/25/2018/03/25/20 [id number] Ambulatory Trade 18 [facility] Main [place] Repository 03/25/2018/03/27/20 [id number] Ambulatory Trade 18 [facility] [place] Repository 03/17/2018/03/18/20 [id number] Ambulatory [place] Brenda [facility] ding:WC Repository 03/06/2018/03/06/20 [id number] Ambulatory Trade 18 [facility] [place] Repository 03/04/2018/03/04/20 [id number] Ambulatory Trade 18 [facility] [place] Repository 03/04/2018/03/04/20 [id number] Ambulatory Trade 18 [facility] [place] Repository 03/02/2018/03/03/20 [id number] Ambulatory Trade 18 [facility] [place] Repository 02/20/2018/02/21/20 [id number] Ambulatory [address] Main [place] Repository 02/12/2018/02/14/20 [id number] Ambulatory Trade 18 [facility] [place] Repository 02/10/2018/02/16/20 [id number] Ambulatory [place] Brenda [facility] ding:WC Repository 02/09/2018/02/11/20 [id number] Ambulatory [address] [place] Repository 01/13/2018/01/17/20 [id number] Ambulatory [place] [facility] ding:WC Repository 01/01/2018/01/02/20 [id number] Ambulatory [address] [place] Repository 12/29/2017/01/01/20 [id number] Ambulatory [address] [place] Repository 12/19/2017/04/14/20 [id number] Ambulatory [address] [place] Repository 12/19/2017/12/20/19 [id number] Ambulatory [address] [place] Repository 12/19/2017/12/31/19 [id number] Ambulatory [address] [place] Repository 12/16/2017/12/17/19 [id number] Ambulatory [place] Brenda 18 [facility] ding:WC Repository 12/06/2017/12/07/19 [id number] Emergency [place] [facility] ding:ED Repository 12/06/2017/12/07/19 [id number] Ambulatory [address] [place] Repository 12/06/2017/12/07/19 [id number] Ambulatory [address] Main [place] Repository 11/18/2017/11/19/19 [id number] Ambulatory [address] Main [place] Repository 11/12/2017/11/13/19 [id number] Ambulatory [address] Repository 11/12/2017/11/14/19 [id number] Ambulatory [address] Repository 11/11/2017/11/16/19 [id number] Ambulatory [address] ding:WC Repository 11/06/2017/11/11/19 [id number] [place], Inpatient Brenda [address]da[address] ding:[id number] Repository : FR382Oqj: 1 11/06/2017 [id number] Imamura, Ambulatory BMSBuilding: [place] Yo[facility] Repository 11/06/2017 [id number] Imamura, Ambulatory BMSBuilding: [place] Yo[facility]MS[facility] Repository 11/06/2017 [id number] Imamura, Ambulatory BMSBuilding: [place] [facility] [facility] Repository 11/06/2017 [id number] Imamura, Ambulatory BMSBuilding: [place] [facility] Repository 11/06/2017 [id number] Imamura, Ambulatory BMSBuilding: [place] [facility] Repository 11/06/2017/11/08/19 [id number] Ambulatory [address] Repository 11/05/2017/11/07/19 [id number] Ambulatory [address] Repository 10/31/2017 [id number] Ambulatory [facility] MEDICAL Repository CENTERBuildi ng:CAGWS 10/29/2017/10/30/19 [id number] Ambulatory [address] Repository 10/10/2017/10/17/19 [id number] Ambulatory [address] ding:WC Repository 10/08/2017/10/10/19 [id number] Ambulatory [address] Repository 10/01/2017/10/02/19 [id number] Ambulatory [address] Repository 09/25/2017 [id number] Ambulatory [facility] Repository 09/25/2017/09/30/19 [id number] Ambulatory [address] Repository 09/18/2017/05/07 [id number] Ambulatory [address] Repository 09/10/2017/09/17/19 [id number] Sam, Inpatient [place] Brenda 18 Neil Encounter [facility] ding:[id number] Repository : NC176Qhw: 1 09/10/2017 [id number] Sam, Ambulatory BMSBuilding: [place] Neil [facility] Repository 09/10/2017 [id number] [place], Ambulatory BMSBuilding: [place] Neil [facility] Repository 09/10/2017 [id number] Sam, Ambulatory BMSBuilding: [place] Neil BMS.CF[facility] Repository 09/10/2017 [id number] Sam, Ambulatory BMSBuilding: [place] Neil [facility] Repository 09/10/2017 [id number] Sam, Ambulatory BMSBuilding: [place] Neil BMS.CF.[facility] Repository 09/10/2017 [id number] [place], Ambulatory BMSBuilding: [place] Neil [facility] Repository 09/10/2017 [id number] [facility], Ambulatory BMSBuilding: [place] Neil BMS.CF.[facility] Repository 09/10/2017 [id number] [facility] [facility], Ambulatory BMSBuilding: [place] Neil [facility] Repository 09/10/2017 [id number] [place], Ambulatory BMSBuilding: [place] Neil BMS.CF.[facility] Repository 09/10/2017 [id number] Sam, Ambulatory BMSBuilding: [place] Neil BMS.CF.[facility] Repository 09/10/2017 [id number] [place], Ambulatory BMSBuilding: [place] Neil [facility] Repository 09/10/2017 [id number] Sam, Ambulatory BMSBuilding: [place] Neil BMS.CF.[facility] Repository 09/10/2017 [id number] Sam, Ambulatory BMSBuilding: [place] Neil [facility] Repository 09/10/2017 [id number] Sam, Ambulatory BMSBuilding: [place] Neil BMS.[facility] Repository 09/10/2017 [id number] Ambulatory BMSBuilding: [place] [facility] Repository 09/10/2017/09/17/19 [id number] Ambulatory BMSBuilding: [address] Repository 09/05/2017/09/06/19 [id number] Emergency [address] ding:ED Repository 08/29/2017/08/30/19 [id number] Ambulatory [address] [place] Repository 08/25/2017/08/26/19 [id number] Ambulatory [address] [place] Repository 08/25/2017/08/26/19 [id number] Ambulatory [address] [place] Repository 08/25/2017/08/27/19 [id number] Ambulatory [address] [place] Repository 08/21/2017 [id number] Ambulatory [facility] Main [place] Repository 08/14/2017/08/16/19 [id number] Ambulatory [address] [place] Repository 08/11/2017/08/13/19 [id number] Ambulatory [address] [place] Repository 08/07/2017/08/08/19 [id number] Ambulatory [address] [place] Repository 08/07/2017/08/09/19 [id number] Ambulatory [address] [place] Repository 07/21/2017/07/22/19 [id number] Ambulatory [address] [place] Repository 07/21/2017/07/23/19 [id number] Ambulatory [address] [place] Repository 07/10/2017 [id number] Ambulatory [facility] ding:MTLAB Repository 07/10/2017/07/10/19 [id number] Ambulatory [address] [place] Repository 06/29/2017 [id number] Ambulatory [facility] ding:WC Repository 06/27/2017/06/27/19 [id number] Ambulatory [address] [place] Repository 06/22/2017/06/22/19 [id number] Emergency [address] ding:ED Repository PAYERS PAYERS ENCOUNTER GUARANTOR PAYER SUBSCRIBER SOURCE 05/27/2018 CARISSA [facility] KLEERDOB: Insurance:HUMANA KLEPPERDOB: Health [facility] [id number] [facility] [id number] Repository CHRISTY NICCI, Number: [id number]: [id number] Date: (HP) 05/06/2018 CARISSA G Primary CARISSA Clotilde [place] [id number] Insurance:HUMANA KLEERDOB: Count includes the [facility] Nicci, MEDICARE PPOPolicy [id number] [facility] [address]Fyw: Number: Repository [id number] (HP) Date:[id number] [address] [address]IX: 05/06/2018 Secondary NOT GIVENUNK [place] Insurance:SELF PAY [facility] Number: Effective Repository Date:2018-04-08 05/04/2018 CARISSA G KLEPPER Primary CARISSA G KLEPPER [place] Sr.78[address] CHRISTY Insurance:HUMANA Sr.: [facility] PPOPolicy [id number] [address]Lqo: (330) Number: Repository [phone] () [id number] Date:6588-16-83SA [address]46[address]WP: 05/04/2018 Secondary NOT GIVENUNK [place] Insurance:SELF PAY [facility] Number: Effective Repository Date:2018-04-30 05/04/2018 CARISSA G KLEPPER Primary CARISSA G KLEPPER Bren[place] Sr.7829 CHRISTY Insurance:[place]MANA Sr.: [place] PPOPolicy [id number] Hospital [address]Cme: (330) Number: Repository [phone] () [id number] Date:5722-77-43KL [address] [address]XK: 05/04/2018 Secondary NOT GIVENUNK Brenda Insurance:SELF PAY [facility] Number: Effective Repository Date:2018-05-04 05/01/2018 CARISSA G KLEPPER Primary CARISSA G KLEPPER Brenda Sr.7829 CHRISTY Insurance:HUMANA Sr.: [place] PPOPolicy [id number] [address]Tcn: (330) Number: Repository [phone] () [id number] Date:0801-24-63QV [place] [address]WP: 05/01/2018 Secondary NOT GIVENUNK [place] Insurance:SELF PAY [facility] Number: Effective Repository Date:2018-05-01 03/29/2018 Carissa Mabry Primary Carissa Mabry [place] [id number] Insurance:HUMANA KlepperDOB: [facility] [place], MED[place]ARE PPOPolicy [id number] [facility] [address]Ime: Number: Repository [id number] (HP) Date:2754-82-36YW [place] [address]WP: 03/29/2018 Secondary NOT GIVENUNK Brenda Insurance:SELF PAY [facility] Number: Effective Repository Date:2018-03-19 03/17/2018 Carissa Mabry Primary Carissa Mabry [place] [id number] Insurance:HUMANA KlepperDOB: [facility] [place], MEDICARE PPOPolicy [id number] [facility] [address]Sqs: Number: Repository [id number] (HP) Date:1382-65-98GB [place] [address]WP: 03/17/2018 Secondary NOT GIVENUNK Brenda Insurance:SELF PAY [facility] Number: Effective Repository Date:2018-02-16 02/10/2018 Carissa Mabry Primary Carissa Mabry [place] [id number] Insurance:HUMANA KlepperDOB: [facility], MEDICARE PPOPolicy [id number] [facility] [address]Yyb: Number: Repository [id number] (HP) Date:7768-37-20OU [address] [address]OU: 02/10/2018 Secondary NOT GIVENUNK [place] Insurance:SELF PAY [facility] Number: Effective Repository Date:2018-01-17 01/13/2018 Carissa Mabry Primary Carissa Mabry Brenda [id number] Insurance:HUMANA KlepperDOB: [facility] [place], MEDICARE PPOPolicy [id number] [place] [id number]: Number: Repository [id number] (HP) Date:9879-12-67GK [address]46[address]WP: 01/13/2018 Secondary NOT GIVENUNK Brenda Insurance:SELF PAY [facility] Number: Effective Repository Date:2017-12-17 12/16/2017 Carissa Mabry Primary Carissa Mabry [place] [id number] Insurance:HUMANA KlepperDOB: [facility], MEDICARE PPOPolicy [id number] [place] [id number]: Number: Repository [id number] (HP) Date:8850-31-82LZ [address]46[address]WP: 12/16/2017 Secondary NOT GIVENUNK Brenda Insurance:SELF PAY [facility] Number: Effective Repository Date:2017-11-16 12/06/2017 Carissa Mabry Primary Carissa Mabry [place] [id number] Insurance:HUMANA KlepperDOB: [facility], MEDICARE PPOPolicy [id number] [place] [id number]: Number: Repository [id number] (HP) Date:2737-58-98TC [address] [address]CZ: 12/06/2017 Secondary NOT GIVENUNK Brenda Insurance:SELF PAY [facility] Number: Effective Repository Date:2017-12-06 11/11/2017 Carissa Mabry Primary Carissa Mabry Brenda [id number] Insurance:HUMANA KlepperDOB: [facility] [place], MEDICARE PPOPolicy [id number] [place] [address]Pwf: Number: Repository [id number] (HP) Date:2422-76-56TS [address] [place] [address]TF: 11/11/2017 Secondary NOT GIVENUNK Brenda Insurance:SELF PAY [facility] Number: Effective Repository Date:2017-10-17 11/06/2017 Carissa G Primary Carissa G [place] [id number] Insurance:HUMANA KlepperDOB: [facility] [place], MEDICARE PPOPolicy [id number] [place] [address]Jwj: Number: Repository [id number] (HP) Date:9967-60-06UL [address] [place], [place] [address]WP: 11/06/2017 Secondary NOT GIVENUNK [place] Insurance:SELF PAY [facility] Number: Effective Repository Date:2017-11-06 11/06/2017 Carissa G Primary Carissa G [place] [id number] Insurance:HUMANA KlepperDOB: [facility] [place], MEDICARE PPOPolicy [id number] [facility] [address]Naa: Number: Repository [id number] (HP) Date:4208-88-75JV [address] [place] [address]JN: 11/06/2017 Secondary NOT GIVENUNK Brenda Insurance:SELF PAY [facility] Number: Effective Repository Date:2017-11-06 11/06/2017 Carissa G Primary Carissa G Brenda [id number] Insurance:HUMANA KlepperDOB: [facility] [place], MEDICARE PPOPolicy [id number] [place] [address]Ifh: Number: Repository [id number] (HP) Date:9111-74-44LO [address] [place] [address]DJ: 11/06/2017 Secondary NOT GIVENUNK [place] Insurance:SELF PAY [facility] Number: Effective Repository Date:2017-11-06 11/06/2017 Carissa Mabry Primary Carissa Mabry [place] [id number] Insurance:HUMANA KlepperDOB: [facility], MEDICARE PPOPolicy [id number] [place] [address]Xkx: Number: Repository [id number] (HP) Date:2798-14-54AY [address] [place] [address]WP: 11/06/2017 Secondary NOT GIVENUNK Brenda Insurance:SELF PAY [facility] Number: Effective Repository Date:2017-11-06 11/06/2017 Carissa Mabry Primary Carissa Mabry Brenda [id number] Insurance:HUMANA KlepperDOB: [place], [place] PPOPolicy [id number] [place] [address]Qum: Number: Repository [id number] (HP) Date:0786-46-99CF [address] [address]BF: 11/06/2017 Secondary NOT GIVENUNK [place] Insurance:SELF PAY [facility] Number: Effective Repository Date:2017-11-06 11/06/2017 Carissa Mabry Primary Carissa Mabry Brenda [id number] Insurance:HUMANA KlepperDOB: [place] [address], MED[place]ARE PPOPolicy [id number] [place] [address]Vgm: Number: Repository [id number] (HP) Date:1303-38-37JN [address] [place] [address]XO: 11/06/2017 Secondary NOT GIVENUNK [place] Insurance:SELF PAY [facility] Number: Effective Repository Date:2017-11-06 10/31/2017 CARISSA Mabry Primary CARISSA Mabry [facility] KLEPPERDOB: Insurance:HUMANA KLEPPERDOB: [facility] [id number] [facility] [id number] Repository CHRISTY GRAJEDA, Number: [id number]: [id number] Date: (HP) 10/10/2017 Carissa Mabry Primary Carissa Mabry Brenda [id number] Insurance:HUMANA KlepperDOB: [facility] [place], MEDICARE PPOPolicy [id number] [place] [address]Hni: Number: Repository [id number] (HP) Date:3863-82-62SU [address] [place], [place] [address]WP: 10/10/2017 Secondary NOT GIVENUNK [place] Insurance:SELF PAY [facility] Number: Effective Repository Date:2017-09-19 09/10/2017 Carissa Mabry Primary Carissa Mabry Brenda [id number] Insurance:HUMANA KlepperDOB: [facility] [place], MEDICARE PPOPolicy [id number] [facility] [address]Kft: Number: Repository [id number] (HP) Date:1316-14-36TU [address] [place], [place] [id number]: 09/10/2017 Secondary NOT GIVENUNK [place] Insurance:SELF PAY [facility] Number: Effective Repository Date:2017-09-09 09/10/2017 Carissa Mabry Primary Carissa Mabry [place] [id number] Insurance:HUMANA KlepperDOB: [facility] [place], MEDICARE PPOPolicy [id number] [place] [address]Vgi: Number: Repository [id number] (HP) Date:9431-32-28FY [address] [address]QJ: 09/10/2017 Secondary NOT GIVENUNK [place] Insurance:SELF PAY [facility] Number: Effective Repository Date:2017-09-10 09/10/2017 Carissa Mabry Primary Carissa Mabry Brenda [id number] Insurance:HUMANA KlepperDOB: [facility] [place] [address], MEDICARE PPOPolicy [id number] [place] [address]Wrx: Number: Repository [id number] (HP) Date:6389-04-86MN [address] [place] [address]XH: 09/10/2017 Secondary NOT GIVENUNK Brenda Insurance:SELF PAY [facility] Number: Effective Repository Date:2017-09-10 09/10/2017 Carissa Mabry Primary Carissa Mabry [place] [id number] Insurance:HUMANA KlepperDOB: [facility] [place], MEDICARE PPOPolicy [id number] [place] [address]Cck: Number: Repository [id number] (HP) Date:9789-97-66AO [address] [place] [address]FM: 09/10/2017 Secondary NOT GIVENUNK Brenda Insurance:SELF PAY [facility] Number: Effective Repository Date:2017-09-10 09/10/2017 Carissa Mabry Primary Carissa Mabry Brenda [id number] Insurance:HUMANA KlepperDOB: [facility] [place], MEDICARE PPOPolicy [id number] [place] [address]Giy: Number: Repository [id number] (HP) Date:4690-83-33DD [address] [place] [address]QE: 09/10/2017 Secondary NOT GIVENUNK [place] Insurance:SELF PAY [facility] Number: Effective Repository Date:2017-09-10 09/10/2017 Carissa Mabry Primary Carissa Mabry Brenda [id number] Insurance:HUMANA KlepperDOB: [facility] [place], MEDICARE PPOPolicy [id number] [address]Sbt: Number: Repository [id number] (HP) Date:3512-50-27LU [address] [place] [address]UK: 09/10/2017 Secondary NOT GIVENUNK [place] Insurance:SELF PAY [facility] Number: Effective Repository Date:2017-09-10 09/10/2017 Carissa Mabry Primary Carissa aMbry Brenda [id number] Insurance:HUMANA KlepperDOB: [facility] [place], MEDICARE PPOPolicy [id number] [place] [address]Tec: Number: Repository [id number] (HP) Date:2155-75-25AP [address] [place], [place] [address]WP: 09/10/2017 Secondary NOT GIVENUNK Brenda Insurance:SELF PAY [facility] Number: Effective Repository Date:2017-09-10 09/10/2017 Carissa Mabry Primary Carissa Mabry [place] [id number] Insurance:HUMANA KlepperDOB: [facility] [place], MEDICARE PPOPolicy [id number] [place] [address]Vcx: Number: Repository [id number] (HP) Date:6022-30-75BM [place] [address]WP: 09/10/2017 Secondary NOT GIVENUNK Brenda Insurance:SELF PAY [facility] Number: Effective Repository Date:2017-09-10 09/10/2017 Carissa Mabry Primary Carissa Mabry Brenda [id number] Insurance:HUMANA KlepperDOB: [facility] [place], MEDICARE PPOPolicy [id number] [place] [address] [place] [address]Cps: Number: Repository [id number] (HP) Date:9527-51-06SS [address] [place] [address]QV: 09/10/2017 Secondary NOT GIVENUNK Brenda Insurance:SELF PAY [facility] Number: Effective Repository Date:2017-09-10 09/10/2017 Carissa Mabry Primary Carissa Mabry [place] [id number] Insurance:HUMANA KlepperDOB: [facility] [place], MEDICARE PPOPolicy [id number] [place] [address] [place] [address]Fbe: Number: Repository [id number] (HP) Date:3500-47-55HY [address] [place] [address]OI: 09/10/2017 Secondary NOT GIVENUNK [place] Insurance:SELF PAY [facility] Number: Effective Repository Date:2017-09-10 09/10/2017 Carissa Mabry Primary Carissa Mabry [place] [id number] Insurance:HUMANA KlepperDOB: [facility] [place], MEDICARE PPOPolicy [id number] [place] [address]Hfh: Number: Repository [id number] (HP) Date:4755-59-25LP [address] [place], [place] [id number]: 09/10/2017 Secondary NOT GIVENUNK Brenda Insurance:SELF PAY [facility] Number: Effective Repository Date:2017-09-10 09/10/2017 Carissa Mabry Primary Carissa Mabry [place] [id number] Insurance:HUMANA KlepperDOB: [facility] [place], MEDICARE PPOPolicy [id number] [place] [address] [place] [address]Olv: Number: Repository [id number] (HP) Date:9235-74-69VZ [address] [place] [address]OF: 09/10/2017 Secondary NOT GIVENUNK Brenda Insurance:SELF PAY [facility] Number: Effective Repository Date:2017-09-10 09/10/2017 Carissa Mabry Primary Carissa Mabry [place] [id number] Insurance:HUMANA KlepperDOB: [facility] [place], MEDICARE PPOPolicy [id number] [place] [address] [place] [address]Ayn: Number: Repository [id number] (HP) Date:8052-08-50JI [address] [place] [address]YZ: 09/10/2017 Secondary NOT GIVENUNK [place] Insurance:SELF PAY [facility] Number: Effective Repository Date:2017-09-10 09/10/2017 Carissa Mabry Primary Carissa Mabry Brenda [id number] Insurance:HUMANA KlepperDOB: [facility] [place], MEDICARE PPOPolicy [id number] [address]Fwk: Number: Repository [id number] (HP) Date:9288-90-69NP [address] [address]CT: 09/10/2017 Secondary NOT GIVENUNK [place] Insurance:SELF PAY [facility] Number: Effective Repository Date:2017-09-10 09/10/2017 Carissa Mabry Primary Carissa Mabry [place] [id number] Insurance:HUMANA KlepperDOB: [facility] [place], MEDICARE PPOPolicy [id number] [place] [address]Tqs: Number: Repository [id number] (HP) Date:8020-79-93TE [address] [place], [place] [address]WP: 09/10/2017 Secondary NOT GIVENUNK Brenda Insurance:SELF PAY [facility] Number: Effective Repository Date:2017-09-10 09/10/2017 Carissa Mabry Primary Carissa Mabry [place] [id number] Insurance:HUMANA KlepperDOB: [facility] [place], MEDICARE PPOPolicy [id number] [place] [address]Bon: Number: Repository [id number] (HP) Date:9486-49-89IR [address] [address]CS: 09/10/2017 Secondary NOT GIVENUNK [place] Insurance:SELF PAY [facility] Number: Effective Repository Date:2017-09-10 09/10/2017 Carissa Mabry Primary Carissa Mabry Brenda [id number] Insurance:HUMANA KlepperDOB: [facility] [place], MEDICARE PPOPolicy [id number] [place] [address]Qfk: Number: Repository [id number] (HP) Date:9556-59-79DM [address] [place] [address]RU: 09/10/2017 Secondary NOT GIVENUNK Brenda Insurance:SELF PAY [facility] Number: Effective Repository Date:2017-09-10 09/05/2017 Carissa Mabry Primary Carissa Mabry [place] [id number] Insurance:HUMANA KlepperDOB: [facility] [place], MED[place]ARE PPOPolicy [id number] [place] [address]Tel: Number: Repository [id number] (HP) Date:0794-21-25SE [address] [address]WN: 09/05/2017 Secondary NOT GIVENUNK [place] Insurance:SELF PAY [facility] Number: Effective Repository Date:2017-09-05 07/10/2017 Carissa Mabry Primary Carissa Mabry [place] [id number] Insurance:HUMANA KlepperDOB: [place] [address], MED[place]ARE PPOPolicy [id number] [place] [id number]: Number: Repository [id number] (HP) Date:6282-57-64OR [address] [address]FK: 07/10/2017 Secondary NOT GIVENUNK [place] Insurance:SELF PAY [facility] Number: Effective Repository Date:2017-07-10 06/29/2017 Carissa Mabry Primary Carissa Mabry [place] [id number] Insurance:HUMANA KlepperDOB: [place] [address], MED[place]ARE PPOPolicy [id number] [place] [id number]: Number: Repository [id number] (HP) Date:0396-31-75PW [address] [address]HG: 06/29/2017 Secondary NOT GIVENUNK Brenda Insurance:SELF PAY [facility] Number: Effective Repository Date:2017-06-19 06/22/2017 Carissa Mabry Primary Carissa Mabry Brenda [id number] Insurance:SOCORRO Guy[facility] [address], MEDICARE PPOPolicy [id number] [facility] [address]Bxr: Number: Repository [id number] (HP) Date:6877-28-46[address] [address]UWJIYLFFD, [place] [address]NI: 06/22/2017 Secondary NOT GIVENCAROLS A Gutierrez Insurance:SELF PAY [facility] Number: Effective Repository Date:2017-06-22
== END 2018-05-01 14:08 | disposition home or self-care (01) ==
PROVIDERS: Emergency Provider Emergency Medicine; Family Provider Internal Medicine; PCP Internal Medicine
DX: R07.9 Chest pain, unspecified (principal); I10 Essential (primary) hypertension; J45.909 Unspecified asthma, uncomplicated; K21.9 Gastro-esophageal reflux disease without esophagitis; Z86.711 Personal history of pulmonary embolism; Z79.01 Long term (current) use of anticoagulants; Z79.899 Other long term (current) drug therapy
CPT/HCPCS: 71045; 80048; 84484; 85025; 93005; 99284; A4216

== ENCOUNTER → 2018-05-04 11:10 | Outpatient (CLI) | payer MEDICARE, SELFPAY ==
[2018-04-08 14:01] VITALS: BMI 34.4
[2018-05-01 11:00] VITALS: BMI 34.1
--- NOTE | 2018-05-04 12:20 | STRESSREP ---
Stress Test Report Exercise stress test. 77-year-old man with a history of shortness of breath and pulmonary hypertension. Medications: Lisinopril, statin. Stress protocol: Resting EKG demonstrates normal sinus rhythm with a rate of 83 bpm normal intervals are noted resting blood pressure 126/82 mmHg. Patient exercised according to regular [place] protocol for total duration of minute and 14 seconds. The maximum heart rate attained was 118 bpm which was 83% of maximum predicted heart rate the maximum workload was 3.2 metabolic equivalents. The patient maintained sinus rhythm throughout the recording. At rest there were no ST or T wave changes noted suggest ischemia peak exercise upsloping ST changes only were noted with normally the criteria for ischemia. The resting blood pressure 126/82 with a final blood pressure 126/72. The peak blood pressure 164/80. The test was terminated due to marked shortness of breath. Conclusion: Exercise stress test with no EKG criteria for ischemia at a low workload. Marked functional aerobic impairment. The low workload noted would affect sensitivity for detection of ischemia.
--- OUTSIDE RECORDS SUMMARY | 2018-08-06 00:31 | XMS RPT_ITS ---
:1940 Author Organization OHIP Support Name Relationship Address Phone EITAN YIP Unavailable [address] + [place] [address] KLEPPER, OSCAR Unavailable [address] + [place] [address] R Unavailable Unavailable Unavailable KLECITLALIER, EITAN Unavailable [address] + [place] [address] KLEPPER, OSCAR Unavailable [address] + [place] [address] R Unavailable Unavailable Unavailable KLEPPER, EITAN Unavailable [address] + [place] [address] KLEPPER, OSCAR Unavailable [address] + [place] [address] R Unavailable Unavailable Unavailable KLEPPER, EITAN Unavailable [address] + [place] [address] KLEPPER, OSCAR Unavailable [address] + [place] [address] R Unavailable Unavailable Unavailable KLEPPER, EITAN Unavailable [address] + [place] [address] KLEPPER, OSCAR Unavailable [address] + [place] [address] R Unavailable Unavailable Unavailable KLEPPER, EITAN Unavailable [address] + [place] [address] KLEPPER, OSCAR Unavailable [address] + [place] [address] R Unavailable Unavailable Unavailable KLEPPER, EITAN Unavailable [address] + [place] [address] KLEPPER, OSCAR Unavailable [address] + [place] [address] R Unavailable Unavailable Unavailable KLEPPER, EITAN Unavailable [address] + [place] [address] KLEPPER, OSCAR Unavailable [address] + [place] [address] R Unavailable Unavailable Unavailable KLEPPER, EITAN Unavailable [address] + [place] [address] KLEPPER, OSCAR Unavailable [address] + [place] [address] R Unavailable Unavailable Unavailable KLEPPER, EITAN Unavailable [address] + [place] [address] KLEPPER, OSCAR Unavailable [address] + [place] [address] R Unavailable Unavailable Unavailable KLEPPER, EITAN Unavailable [address] + [place] [address] KLEPPER, OSCAR Unavailable [address] + [place] [address] R Unavailable Unavailable Unavailable KLEPPER, EITAN Unavailable [address] + [place] [address] KLEPPER, OSCAR Unavailable [address] + [place] [address] R Unavailable Unavailable Unavailable KLEPPER, EITAN Unavailable [address] + [place] [address] KLEPPER, OSCAR Unavailable [address] + [place] [address] R Unavailable Unavailable Unavailable KLEPPER, EITAN Unavailable [address] + [place] [address] KLEPPER, OSCAR Unavailable [address] + [place] [address] R Unavailable Unavailable Unavailable KLEPPER, EITAN Unavailable [address] + [place] [address] KLEPPER, OSCAR Unavailable [address] + [place] [address] R Unavailable Unavailable Unavailable KLEPPER, EITAN Unavailable [address] + [place] [address] KLEPPER, OSCAR Unavailable [address] + [place] [address] R Unavailable Unavailable Unavailable KLEPPER, EITAN Unavailable [address] + [place] [address] KLEPPER, OSCAR Unavailable [address] + [place] [address] R Unavailable Unavailable Unavailable KLEPPER, EITAN Unavailable [address] + [place] [address] KLEPPER, OSCAR Unavailable [address] + [place] [address] R Unavailable Unavailable Unavailable KLEPPER, EITAN Unavailable [address] + [place] [address] KLEPPER, OSCAR Unavailable [address] + [place] [address] R Unavailable Unavailable Unavailable KLEPPER, EITAN Unavailable [address] + [place] [address] KLEPPER, OSCAR Unavailable [address] + [place] [address] R Unavailable Unavailable Unavailable KLEPPER, EITAN Unavailable [address] + [place] [address] KLEPPER, OSCAR Unavailable [address] + [place] [address] R Unavailable Unavailable Unavailable KLEPPER, EITAN Unavailable [address] + [place] [address] KLEPPER, OSCAR Unavailable [address] + [place] [address] R Unavailable Unavailable Unavailable KLEPPER, EITAN Unavailable [address] + [place] [address] KLEPPER, OSCAR Unavailable [address] + [place] [address] R Unavailable Unavailable Unavailable KLEPPER, EITAN Unavailable [address] + [place] [address] KLEPPER, OSCAR Unavailable [address] + [place] [address] R Unavailable Unavailable Unavailable KLEPPER, EITAN Unavailable [address] + [place] [address] KLEPPER, OSCAR Unavailable [address] + [place] [address] R Unavailable Unavailable Unavailable KLEPPER, EITAN Unavailable [address] + [place] [address] KLEPPER, OSCAR Unavailable [address] + [place] [address] R Unavailable Unavailable Unavailable KLEPPER, EITAN Unavailable [address] + [place] [address] KLEPPER, OSCAR Unavailable [address] + [place] [address] R Unavailable Unavailable Unavailable KLEPPER, EITAN Unavailable [address] + [place] [address] KLEPPER, OSCAR Unavailable [address] + [place] [address] R Unavailable Unavailable Unavailable KLEPPER, EITAN Unavailable [address] + [place] [address] KLEPPER, OSCAR Unavailable [address] + [place] [address] R Unavailable Unavailable Unavailable KLEPPER, EITAN Unavailable [address] + [place] [address] KLEPPER, OSCAR Unavailable [address] + [place] [address] R Unavailable Unavailable Unavailable KLEPPER, EITAN Unavailable [address] + [place] [address] KLEPPER, OSCAR Unavailable [address] + [place] [address] R Unavailable Unavailable Unavailable KLEPPER, EITAN Unavailable [address] + [place] [address] KLEPPER, OSCAR Unavailable [address] + [place] [address] R Unavailable Unavailable Unavailable KLEPPER, EITAN Unavailable [address] + [place] [address] KLEPPER, OSCAR Unavailable [address] + [place] [address] R Unavailable Unavailable Unavailable KLEPPER, EITAN Unavailable [address] + [place] [address] KLEPPER, OSCAR Unavailable [address] + [place] [address] R Unavailable Unavailable Unavailable KLEPPER, EITAN Unavailable [address] + [place] [address] KLEPPER, OSCAR Unavailable [address] + [place] [address] R Unavailable Unavailable Unavailable KLEPPER, EITAN Unavailable [address] + [place] [address] KLEPPER, OSCAR Unavailable [address] + [place] [address] R Unavailable Unavailable Unavailable KLEPPER, EITAN Unavailable [address] + [place] [address] KLEPPER, OSCAR Unavailable [address] + [place] [address] R Unavailable Unavailable Unavailable KLEPPER, EITAN Unavailable [address] + [place] [address] KLEPPER, OSCAR Unavailable [address] + [place] [address] R Unavailable Unavailable Unavailable KLEPPER, EITAN Unavailable [address] + [place] [address] KLEPPER, OSCAR Unavailable [address] + [place] [address] R Unavailable Unavailable Unavailable Care Team Providers Name Role Phone Reg Verma Attending Unavailable Reg Verma Referring Unavailable Lambert Larios Primary Care Unavailable Lambert Larios Primary Care Unavailable Sandor Sebastian Attending Unavailable Ke Garcia Attending Unavailable Reg Verma Referring Unavailable Samina Snads [employer] F[employer]ER TWISTING DEPARTMENT-C Attending Unavailable Lambert Larios Primary Care Unavailable Lambert Larios Primary Care Unavailable Leni Valentine Attending Unavailable Milli Diana Attending Unavailable Adalgisa, Milli Referring Unavailable Larios, Lambert Primary Care Unavailable Larios, Lambert Primary Care Unavailable Prasanth Meier Attending Unavailable Prasanth Meier Referring Unavailable Larios, Lambert Primary Care Unavailable [facility], Neil Admitting Unavailable Chet Mckenna Consulting Unavailable Chapis Minor Attending Unavailable Christy Hinds Consulting Unavailable [facility], Neil Admitting Unavailable [facility], Neil Attending Unavailable Larios, Lambert Primary Care Unavailable [facility], Neil Consulting Unavailable [facility], Neil Admitting Unavailable Shane Gandhi Attending Unavailable Larios, Lambert Primary Care Unavailable Naveed, Chet Consulting Unavailable Hiram, Shane Consulting Unavailable [facility], Neil Admitting Unavailable Elsy, Homero Attending Unavailable Larios, Lambert Primary Care Unavailable Naveed, Chet Consulting Unavailable Shane Gandhi Consulting Unavailable [facility], Neil Admitting Unavailable Hiram, Shane Attending Unavailable Larios, Lambert Primary Care Unavailable Naveed, Chet Consulting Unavailable Shane Gandhi Consulting Unavailable [facility], Neil Admitting Unavailable Elsy, Homero Attending Unavailable Larios, Lambert Primary Care Unavailable Naveed, Chet Consulting Unavailable Shane Gandhi Consulting Unavailable [facility], Neil Admitting Unavailable Shane Gandhi Attending Unavailable Larios, Lambert Primary Care Unavailable Naveed, Chet Consulting Unavailable Shane Gandhi Consulting Unavailable [facility], Neil Admitting Unavailable Prasanth Cueva Attending Unavailable Larios, Lambert Primary Care Unavailable Chet Mckenna Consulting Unavailable Shane Gandhi Consulting Unavailable [facility], Neil Admitting Unavailable Shane Gandhi Attending Unavailable Larios, Lambert Primary Care Unavailable Chet Mckenna Consulting Unavailable KitShane mendoza Consulting Unavailable [facility], Neil Admitting Unavailable Prasanth Cueva Attending Unavailable Larios, Lambert Primary Care Unavailable Naveed, Chet Consulting Unavailable Shane Gandhi Consulting Unavailable [facility], Neil Admitting Unavailable Elsy, Homero Attending Unavailable Larios, Lambert Primary Care Unavailable Chet Mckenna Consulting Unavailable Chapis Minor Consulting Unavailable [facility], Neil Admitting Unavailable Larios, Lambert Primary Care Unavailable Naveed, Chet Consulting Unavailable Alondra Leal Attending Unavailable [place], Kombian Consulting Unavailable Sam, Neil Admitting Unavailable Homero Chin Attending Unavailable Larios, Lambert Primary Care Unavailable Naveed, Chet Consulting Unavailable CelsayChristy Consulting Unavailable [place], Kombian Consulting Unavailable Sam, Neil Admitting Unavailable Larios, Lambert Primary Care Unavailable Naveed, Chet Consulting Unavailable Alondra Leal Attending Unavailable Slaby, Christy Consulting Unavailable [place], Kombian Consulting Unavailable Sam, Neil Admitting Unavailable Christy Hinds Attending Unavailable Larios, Lambert Primary Care Unavailable Naveed, Chet Consulting Unavailable Slaby, Christy Consulting Unavailable [place], Kombian Consulting Unavailable Larios, Lambert Primary Care Unavailable Sands, Samina [employer] TW[employer] [facility]PARTMENT-C Consulting Unavailable Samina Sands [employer] TWISTING DEPARTMENT-C Attending Unavailable Ke Garcia Attending Unavailable Larios, Lambert Primary Care Unavailable Wicho, Samina [employer] F[employer]ER TWISTING DEPARTMENT-C Consulting Unavailable Oz Cooper Attending Unavailable Christy [...] Larios, Lambert Primary Care Unavailable Wicho, Samina [employer] F[employer] TWISTING DEPARTMENT-C Consulting Unavailable Larios, Lambert Primary Care Unavailable Prasanth Meier Attending Unavailable Oz Cooper Attending Unavailable Larios, Lambert Primary Care Unavailable Sands, Samina [employer] F[employer]ER TWISTING DEPARTMENT-C Consulting Unavailable Oz Cooper Attending Unavailable Larios, Lambert Primary Care Unavailable Sands, Samina [employer] F[employer] TWISTING DEPARTMENT-C Consulting Unavailable Kenneth Oz Attending Unavailable Larios, Lambert Primary Care Unavailable Sands, Samina [employer] F[employer] TWISTING DEPARTMENT-C Consulting Unavailable Oz Cooper Attending Unavailable Larios, Lambert Primary Care Unavailable Sands, Samina [employer] F[employer] TWISTING DEPARTMENT-C Consulting Unavailable Reg Verma Attending Unavailable Reg Verma Referring Unavailable Larios, Lambert Primary Care Unavailable MARK MARRERO Attending Unavailable LARIOS, GEOFFREY Referring Unavailable TED KRAMER (HEALTH AND FITNESS PROFESSOR) Attending Unavailable RAE, LENI (PA) Attending Unavailable RAE, LENI (PA) Referring Unavailable OLDER, ELENA (HEALTH AND FITNESS PROFESSOR) Attending Unavailable OLDER, ELENA (HEALTH AND FITNESS PROFESSOR) Referring Unavailable ATHYELEAZAR (PA) Referring Unavailable PODLOGAR, SEEMA (HEALTH AND FITNESS PROFESSOR) Attending Unavailable ATHYELEAZAR R (PA) Referring Unavailable RAE, LENI (PA) Attending Unavailable RAE, LENI (PA) Referring Unavailable LARIOS, GEOFFREY Referring Unavailable LARIOS, GEOFFREY Attending Unavailable LARIOS, GEOFFREY Referring Unavailable LARIOS, GEOFFREY Referring Unavailable PODLOGAR, SEEMA (HEALTH AND FITNESS PROFESSOR) Referring Unavailable RAE, LENI (IAN) Attending Unavailable RAE, LENI (PA) Referring Unavailable LARIOS, GEOFFREY Attending Unavailable LARIOS, GEOFFREY Referring Unavailable RAE, LENI (PA) Referring Unavailable LARIOS, GEOFFREY Referring Unavailable RAE, LENI (PA) Referring Unavailable RAE, LENI (PA) Referring Unavailable SELVIN, LAPMAN Attending Unavailable RAE, LENI (PA) Referring Unavailable OLDER, ELENA (HEALTH AND FITNESS PROFESSOR) Attending Unavailable PRINCESSTIGLENNA ([facility]) Attending Unavailable GLENNA WALKER (HEALTH AND FITNESS PROFESSOR) Referring Unavailable REG VERMA Attending Unavailable REG VERMA E Referring Unavailable SELVIN, DANIEL Referring Unavailable RAE, LENI (PA) Referring Unavailable RAE, LENI (PA) Referring Unavailable RAE, LENI (PA) Attending Unavailable RAE, LENI (PA) Referring Unavailable LARIOS, GEOFFREY Attending Unavailable LARIOS, GEOFFREY Referring Unavailable ARMOGIDA, CHARI A Attending Unavailable OLDER, ELENA (HEALTH AND FITNESS PROFESSOR) Attending Unavailable RAE, LENI (PA) Attending Unavailable RAE, LENI (PA) Referring Unavailable RAE, LENI (PA) Attending Unavailable RAE, LENI (PA) Referring Unavailable TED KRAMER (HEALTH AND FITNESS PROFESSOR) Referring Unavailable LUCI, REG E Referring Unavailable LUCI, REG E Attending Unavailable RAE, LENI (PA) Referring Unavailable LUCI, REG E Referring Unavailable RAE, LENI (PA) Attending Unavailable RAE, LENI (PA) Referring Unavailable OLDER, ELENA (HEALTH AND FITNESS PROFESSOR) Attending Unavailable OLDER, ELENA (HEALTH AND FITNESS PROFESSOR) Referring Unavailable OLDER, ELENA (HEALTH AND FITNESS PROFESSOR) Referring Unavailable LUCI, REG E Referring Unavailable RAE, LENI (PA) Attending Unavailable LAMBERT LARIOS H Referring Unavailable LUCI, REG E Referring Unavailable RAE, LENI (PA) Referring Unavailable LUCI, REG E Referring Unavailable LUCI, REG E Referring Unavailable LUCI, REG E Referring Unavailable NITHYA GRANDE (PA) Attending Unavailable LUCI, REG Attending Unavailable LUCI, REG Referring Unavailable BRODERICK, JAYRAM Attending Unavailable Lambert Larios MD Referring Unavailable Lambert Larios MD Primary Care Unavailable PROBLEMS PROBLEMS DATE TYPE CONDITION / CODE ATTENDING STATUS SOURCE 05/22/2018 Active Disorder of penis, BRODERICK, Active [place] unspecified / [facility] Clinic Other N48.9(ICD-10) [place] Repository 01/30/2017 Active Benign prostatic BRODERICK, Active [place] hyperplasia without [facility] Clinic Other lower urinary tract [place] symptoms / Repository N40.0(ICD-10) 05/22/2018 Admitting Unknown / BRODERICK, Active [place] General diagnosis UNK(Unknown) [facility] Repository 05/14/2018 Active Other forms of NA Active [facility] dyspnea / Clinic Main R06.09(ICD-10) [place] Repository 04/07/2018 Active Effusion, left NA Active [facility] elbow / Clinic Main M25.422(ICD-10) [place] Repository 05/30/2015 Active Essential (primary) NA Active [facility] hypertension / [facility] Main I10(ICD-10) [place] Repository 03/25/2018 Active Nonrheumatic aortic NA Active [facility] (valve) stenosis / Clinic Main I35.0(ICD-10) [place] Repository 03/04/2018 Active Lobar pneumonia, NA Active [facility] unspecified Clinic Main organism / [place] J18.1(ICD-10) Repository 03/04/2018 Active Dyspnea, NA Active [facility] unspecified / Clinic Main R06.00(ICD-10) [place] Repository 03/04/2018 Active Other abnormalities NA Active [facility] of breathing / Clinic Main R06.89(ICD-10) [place] Repository 03/04/2018 Active Personal history of NA Active [facility] pulmonary embolism Clinic Main / Z86.711(ICD-10) [place] Repository 12/19/2017 Active Severe persistent NA Active [facility] asthma, Clinic Main uncomplicated / [place] J45.50(ICD-10) Repository 11/05/2017 Active 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 / Clinic Main D68.52(ICD-10) [place] Repository 12/06/2017 Active Encounter for NA Active [facility] follow-up Clinic Main examination after [place] completed treatment Repository for conditions other than malignant neoplasm / Z09(ICD-10) 11/12/2017 Active Pain in left toe(s) NA Active [facility] / M79.675(ICD-10) Clinic Main [place] Repository 01/27/2017 Active Other pulmonary NA Active [place] embolism without Clinic Main acute cor pulmonale [place] / I26.99(ICD-10) Repository 10/01/2017 Active Edema, unspecified NA Active Sol / R60.9(ICD-10) Clinic Main [place] Repository 09/25/2017 Active 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 / Clinic Main I27.82(ICD-10) [place] Repository 10/08/2017 Unknown T14.8 - Other [place], Active [place] injury of [facility] unspecified body Hospital region / Repository T14.8(ICD-10) 10/27/2017 Unknown S81.812A - Christy Hinds Active [place] Laceration without Community foreign body, left Hospital lower leg, initial Repository encounter / S81.812A(ICD-10) 10/27/2017 Unknown L02.416 - Cutaneous Christy Hinds Active [place] abscess of left Community lower limb / Hospital L02.416(ICD-10) Repository 10/27/2017 Unknown L03.116 - Christy Hinds Active [place] Cellulitis of left Community lower limb / Hospital L03.116(ICD-10) Repository 08/29/2017 Active Other nonspecific NA Active [place] abnormal finding of Clinic Main lung field / [place] R91.8(ICD-10) Repository 08/25/2017 Active Jaw pain / NA Active [place] R68.84(ICD-10) Clinic Main [place] Repository 08/25/2017 Active Hyperkalemia / NA Active [place] E87.5(ICD-10) Clinic Main [place] Repository 08/21/2017 Active Other long-term NA Active [place] (current) drug Clinic Main therapy / [place] Z79.899(ICD-10) Repository 08/21/2017 Active Abnormal results of NA Active [place] thyroid function [facility] Main studies / [place] R94.6(ICD-10) Repository 08/14/2017 Active Unknown / RAE, Active [place] UNK(Unknown) LENI (IAN) Clinic Main [place] Repository 08/07/2017 Active Cough / R05(ICD-10) NA Active [facility] [place] Repository 07/21/2017 Active Other amnesia / NA Active [place] R41.3(ICD-10) Clinic Main [place] Repository 07/21/2017 Active Other general NA Active [place] symptoms and signs [facility] Main / R68.89(ICD-10) [place] Repository PROCEDURES PROCEDURES No Procedure Records FoundRESULTS RESULTS CNPN Observed: 06/04/2018 Status: COMPLETED Source: [place] [place] 12:00 AM [facility]IN[facility] OTHER CAMPUS REPOSITORY Telephone (AKURFL) CARISSA YIP ([id number]) 1940 M Date Time Provider Department 06/04/18 [...] left lower extremity [S81.802A] INVALID FOR* Prothrombin R04962P mutation (HCC) [D68.52] INVALID FOR*12/29/2017 Allergic rhinitis [...] 06/04/18 PROGRESS Observed: 06/03/2018 Status: COMPLETED Source: [place] 3:05 PM CLINIC OTHER CAMPUS REPOSITORY HNO ID: [id number] Author: Kerri Caputo Service: (none) Author Type: (none) Type: Progress Notes Filed: 06/03/2018 3:06 PM Note Text: Spoke with pts - [facility] - they understand surgery information/date/time/location - New Booklet Mailed - Kerri OBSOLETE Observed: 06/03/2018 Status: COMPLETED Source: [facility] 12:00 AM [facility] REPOSITORY Refill (INTMWS) CARISSA YIP ([id number]) 1940 M Date Time Provider Department 06/03/18 [...] to notify patient. Caterina Randolph Psr Kait Huey Romeromickieshon Back Joiner 06/03/2018 10:42 AM Signed This was sent [...] left lower extremity [S81.802A] INVALID FOR* Prothrombin X24018Q mutation (HCC) [D68.52] INVALID FOR*12/29/2017 Allergic rhinitis due to cats [J30.81] INVALID FOR* Allergic rhinitis due to dust mite [J30.89] INVALID FOR* Allergic rhinitis due to fungal spores [J30.89] INVALID FOR* Seasonal allergic rhinitis due to pollen [J30.1]INVALID FOR* Penile lesion [N48.9] INVALID FOR* Encounter Status:Closed by KAIT TORRES CMA on 06/03/18 PROGRESS Observed: 05/27/2018 Status: COMPLETED Source: [facility] [place] 2:25 PM CLINIC OTHER CAMPUS REPOSITORY HNO ID: [id number] Author: Mark Mrarero Service: (none) Author Type: Physician Type: Progress Notes Filed: 06/02/2018 10:28 AM Note Text: ?? [facility] LOCATION: [address] [place] [address] NEW PATIENT HISTORY AND PHYSICAL EXAM PATIENT [...] 72.5 Lymph% (%) Date Value 12/06/2017 13.0 Dickson% (%) Date Value 12/06/2017 11.0 Eosin% (%) Date Value 12/06/2017 3.3 Baso% (%) Date Value 12/06/2017 0.2 Abs Neut (ANC) (k/uL) Date Value 12/06/2017 4.43 Abs Dickson (k/uL) Date Value 12/06/2017 0.67 Abs Eosin [...] 11/06/2017 6.0 4.5 - 8.0 Final Specific Victor, Ur Date Value Ref Range Status 11/06/2017 [...] Personal history of colonic polyps - 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 - Unspecified asthma(493.90) PAST SURGICAL HISTORY Procedure [...] for OR biopsy with frozen section at [facility] - Likely circumcision at same time - [...] MD CNOV Observed: 05/27/2018 Status: COMPLETED Source: [place] 1:45 PM [facility] OTHER CAMPUS REPOSITORY Office Visit (AKURFL) CARISSA YIP ([id number]) 1940 M Date Time Provider Department 05/27/18 1:45 PM MARK MARRERO During your visit today, we recorded the following information about you: Weight Height 93 kg 1.651 m Mark Marrero DO, MBA 06/02/2018 10:28 AM Signed ?? 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 - Unspecified asthma(493.90) PAST SURGICAL HISTORY Procedure Laterality Date - APPENDECTOMY 11-02-14 - COLONOS W/REM POLYP SNARE 07/25/05 - COLONOS W/REM POLYP SNARE 01/17/11 - COLONOSCOP W/ OR W/O [facility] SPEC 07/28/14 Colonoscopy - COLONOSCOP W/ OR W/O [facility] SPEC 12-20-15 - COLONOSCOPY - DIAGNOSTIC [...] for OR biopsy with frozen section at [facility] - Likely circumcision at same time - [...] Lambert Larios MD Referring Provider: LAMBERT LARIOS [[id number]] Allergies As of Date: 05/27/2018 Noted Allergy Reaction INDOCIN (INDOMETHACIN SODIUM) 04/01/2011 14 - Other: See Comments Comments: Wheezing, can take naprosyn PERCOCET (OXYCODONE-ACETAMINOPHEN)01/08/2005 9 - Itching SEASONAL ALLERGIES 11/12/2012 14 - Other: See Comments Comments: Cat, Goats, Dust mites, molds, trees, grasses, weed, ragweed Date Reviewed: 05/27/2018 Reviewed by: Francia Morales MICROWAVE ENGINEER - Fully Assessed Reason for Visit: Penile [...] left lower extremity [S81.802A] INVALID FOR* Prothrombin J91894M mutation (HCC) [D68.52] INVALID FOR*12/29/2017 Allergic rhinitis [...] 06/02/18 PROGRESS Observed: 05/22/2018 Status: COMPLETED Source: [place] 12:[address] [facility] REPOSITORY HNO ID: [id number] Author: Leni Mack Service: (none) Author Type: (none) Type: Progress Notes Filed: 05/22/2018 12:12 PM Note Text: May 22, 2018 12:12 PM Called and spoke to patient, he is scheduled for Friday05/27/18 in the [place] location, address given-JF Leni Mack PROGRESS Observed: 05/22/2018 Status: COMPLETED Source: [place] 11:[address] 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 - Unspecified asthma(493.90) Past Surgical History [...] or problems. No history of angina, CHF, WA, cardiac surgery of stents. Respiratory: Negative for [...] problems. Neurologic: No history of TIA's, stroke, ASSISTANT [employer] tumor, impaired sensorium, hemiplegia, paraplegia or quadriplegia. [...] FRANKLIN ROBERTS Observed: 05/22/2018 Status: COMPLETED Source: [place] 10:[address] 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 - Unspecified asthma(493.90) Past Surgical History [...] or problems. No history of angina, CHF, WA, cardiac surgery of stents. Respiratory: Negative for [...] problems. Neurologic: No history of TIA's, stroke, [employer] tumor, impaired sensorium, hemiplegia, paraplegia or quadriplegia. [...] he is scheduled for Friday05/27/18 in the [place] location, address given-HAMZAH Leni Mack Referring Provider: SELF [[id number]] Allergies As of Date: 05/22/2018 Noted Allergy Reaction INDOCIN (INDOMETHACIN SODIUM) 04/01/2011 14 - Other: See Comments Comments: Wheezing, can take naprosyn PERCOCET (OXYCODONE-ACETAMINOPHEN)01/08/2005 9 - Itching SEASONAL ALLERGIES 11/12/2012 14 - Other: See Comments Comments: Cat, Goats, Dust mites, molds, trees, grasses, weed, ragweed Date Reviewed: 05/22/2018 Reviewed by: Nithay Grande (Pa) - Fully Assessed Reason for Visit: lesion on penis [Other] Primary Visit Diagnosis:Penile lesion [N48.9] Order(s):UA DIP, URINE (POC) [[id number]] Order #: [id number]. #:[id number] Prescriptions as of 05/22/2018 Sig: CEPHALEXIN 500 [...] left lower extremity [S81.802A] INVALID FOR* Prothrombin N50247Q mutation (HCC) [D68.52] INVALID FOR*12/29/2017 Allergic rhinitis due to cats [J30.81] INVALID FOR* Allergic rhinitis due to dust mite [J30.89] INVALID FOR* Allergic rhinitis due to fungal spores [J30.89] INVALID FOR* Seasonal allergic rhinitis due to pollen [J30.1]INVALID FOR* Penile lesion [N48.9] INVALID FOR* Follow-up and Disposition History Recorded Encounter Status:Closed by NITHYA GRANDE PA-C on 05/22/18 PROGRESS Observed: 05/20/2018 Status: COMPLETED Source: [place] 3:[address] [facility] REPOSITORY O ID: [id number] Author: Heather Lozano Service: (none) Author Type: [...] STATUS: Discontinued PROCEDURE TYPE: NM Stress: 13.1mCi Yz94o-Pzbmmmv was administered IV for Rest Imaging at 12:28 by [employer]. 33.5 mCi Tc99m- Myoview was administered IV for Stress Imaging at 14:03 by [employer]. ADMINISTRATION TIME: PATIENT DISCHARGED TO: Ambulatory patient, left NM department area. A Diagnostic radioactive procedure has taken place, with no further precautions necessary other than routine body substance precautions. More information regarding radiation safety can be found using this link: [email or web address] SIGNATURE: [employer] PATIENT NAME: Carissa Yip DATE: May 20, 2018 TIME: 3:19 PM PAGER/CONTACT #: DEMETRIS CARDIAC PERF Observed: 05/20/2018 Status: F Source: [place] STRESS/PHARM 3:[address] [facility] REPOSITORY * * *Final Report* * * [...] 60 minutes later. See administered doses below. [facility] Date of service: 05/20/2018 9:44:24 AM Ordering [...] cavity size is unchanged with stress. Final Check Weigher: KATJA Transcribe Date/Time: May 20 2018 9:44A Dictated by : SOHAIL OAKLEY MD This examination was interpreted and the report reviewed and electronically signed by: SOHAIL OAKLEY MD on May 20 2018 3:48PM EST [id number] PROGRESS Observed: 05/20/2018 Status: COMPLETED Source: [place] 2:[address] [facility] REPOSITORY HNO ID: [id number] Author: Hernando Trimble (Rcep) Service: (none) Author Type: College Intern Type: Progress Notes Filed: 05/20/2018 2:12 PM Note Text: Preliminary report complete; results under imaging tab. GLORIA Hdz CNNURSE Observed: 05/20/2018 Status: COMPLETED Source: [place] 1:[address] [facility] REPOSITORY Nurse Visit (CAWSTR) CARISSA YIP ([id number]) 1940 M Date Time Provider Department 05/20/18 1:30 PM NURSE CARD ADMIN [facility] CAWSTR During your visit today, we recorded the following information about you: Tomas Prince RN 05/20/2018 2:11 PM Signed lexiscan 0.4mg/5ml given over 10 second IV push. Lot number [id number], exp date 06-19-2021. Patient tolerated injection well. GLORIA Queen RN 05/20/2018 2:12 PM Signed Preliminary report complete; results under imaging tab. GLORIA Hdz Referring Provider: REG VERMA [[id number]] Allergies As of Date: 05/20/2018 Noted Allergy [...] on exertion [R06.09] Order(s):NM CARDIAC PERF STRESS/PHARM [[id number]] Order #: [id number] Prescriptions as of 05/20/2018 Sig: ADVAIR HFA [...] left lower extremity [S81.802A] INVALID FOR* Prothrombin Z90997S mutation (HCC) [D68.52] INVALID FOR*12/29/2017 Allergic rhinitis [...] 05/20/18 PROGRESS Observed: 05/17/2018 Status: COMPLETED Source: [place] 1:57 PM [facility] REPOSITORY O ID: [id number] Author: Shant Gutierrez Service: (none) Author Type: [...] Diabetes mellitus type 2, controlled, without complications ([facility]) 08/25/2017 - Diverticulosis of colon (without mention [...] Personal history of colonic polyps - Prothrombin 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 - Unspecified asthma(493.90) PAST SURGICAL HISTORY Procedure [...] APRN.PETROS CNOV Observed: 05/17/2018 Status: COMPLETED Source: [place] 11:[address] [facility] REPOSITORY Office Visit (UCWSTR) CARISSA YIP ([id number]) 1940 M Date Time Provider Department 05/17/18 [...] Personal history of colonic polyps - Prothrombin L12688N mutation (HCC) 11/05/2017 - Pulmonary embolism (HCC) - Pulmonary hypertension (HCC) 01/30/2017 - 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 - Unspecified asthma(493.90) PAST SURGICAL HISTORY Procedure Laterality Date - APPENDECTOMY 11-02-14 - COLONOS W/REM POLYP SNARE 07/25/05 - COLONOS W/REM POLYP SNARE 01/17/11 - COLONOSCOP W/ OR W/O [facility] SPEC 07/28/14 Colonoscopy - COLONOSCOP W/ OR W/O [facility] SPEC 12-20-15 - COLONOSCOPY - DIAGNOSTIC [...] Patient agreeable to treatment plan. Shant Gutierrez APRN.[facility] Referring Provider: SELF [[id number]] Allergies As [...] left lower extremity [S81.802A] INVALID FOR* Prothrombin Q12625D mutation (HCC) [D68.52] INVALID FOR*12/29/2017 Allergic rhinitis [...] 05/17/18 CNOV Observed: 05/14/2018 Status: COMPLETED Source: [place] 3:[address] [facility] REPOSITORY Office Visit (PULMWS) CARISSA YIP ([id number]) 1940 M Date Time Provider Department 05/14/18 3:30 PM LENI MCBRIDE PULMWS During your visit today, we recorded the following information about you: Pulse Respiration Blood pressure Weight 97/minute 16/minute 138/80 93 kg Leni Mcbride PA-C 05/14/2018 2:49 PM Signed [facility], 05/14/18: INTERVAL HISTORY: The patient is here [...] edema, orthopnea. GI: No heartburn, dysphagia, diarrhea. Uro/FORGESMITH: No dysuria, hesitancy, nocturia. Musculoskeletal: No pain. [...] acceptance of my answers. Leni Mcbride PA-C [facility] [address] [address] Leni Mcbride PA-C 05/14/2018 2:49 [...] sooner if needed. Referring Provider: LAMBERT LARIOS [[id number]] Allergies As of Date: 05/14/2018 Noted Allergy [...] R06.89] Cough [R05] Order(s):XR CHEST 2V FRONTAL/LAT [[id number]] Order #: [id number] FUTURE azithromycin (ZITHROMAX Z-DONNA) 250 mg tabletTAKE [...] left lower extremity [S81.802A] INVALID FOR* Prothrombin X88994Y mutation (HCC) [D68.52] INVALID FOR*12/29/2017 Allergic rhinitis [...] 2V FRONTAL/LAT Observed: 05/14/2018 Status: F Source: [place] 3:14 PM [facility] REPOSITORY * * *Final Report* [...] with suspected improving left lower lobe pneumonia. Check Weigher: PSCB Transcribe Date/Time: May 15 2018 1:26P Dictated by : TALA GONZALEZ MD This examination was interpreted and the report reviewed and electronically signed by: TALA GONZALEZ MD on May 15 2018 1:30PM EST [id number] PROGRESS Observed: 05/14/2018 Status: COMPLETED Source: [place] 3:[address] [facility] REPOSITORY HNO ID: [id number] Author: Janett Loving (Rt) Blake Olivera Service: (none) Author Type: Applications Engineer Type: Progress Notes Filed: 05/14/2018 3:14 PM [...] PM PROGRESS Observed: 05/14/2018 Status: COMPLETED Source: [place] 2:[address] [facility] REPOSITORY HNO ID: [id number] Author: Leni Mcbride Service: (none) Author Type: Physician Collections And Archives Director Type: Progress Notes Filed: 05/14/2018 2:49 PM Note Text: [facility], 05/14/18: INTERVAL HISTORY: The patient is here [...] edema, orthopnea. GI: No heartburn, dysphagia, diarrhea. Uro/FORGESMITH: No dysuria, hesitancy, nocturia. Musculoskeletal: No pain. [...] acceptance of my answers. Leni Mcbride PA-C [facility] [place] [address] [place] [id number] STRESS REPORT Observed: 05/04/2018 Status: F Source: [place] 12:22 PM [facility] REPOSITORY [facility] Cardiovascular Services [address] [place] [address] MR#: [id number] Acct: [id number] Name: CARISSA YIP Sr. Rep #: [id number] : 1940 77 From: Ke Garcia MD [...] Dictated: 05/04/18 1220 Date Transcribed: 05/04/18 1220 Check Weigher: CO Signed 12 LEAD ELECTROCARDIOGRAM Observed: 05/04/2018 Status: F Source: [place] 7:38 AM [facility] REPOSITORY [facility] Cardiovascular Services [address] [place] [address] 12 Lead EKG 05/01/18 1107 MR#: [id number] Acct: [id number] Name: ALANENZOCARISSA Sr. Rep #: [id number] : 1940 77 From: Ke Garcia MD [...] ECG Confirmed by KE GARCIA MD ([id number]), greeting card editor YARON WOODS ([id number]) on 05/04/2018 7:38:43 AM Referred By: DC Confirmed By:KE GARCIA MD 05/04/18 0738 Date Ke Garcia MD CC: Sandor Sebastian MD; Lambert Larios MD Signed EMERGENCY DEPARTMENT Observed: 05/01/2018 Status: F Source: [place] SUMMARY 2:57 PM [facility] REPOSITORY [facility] Medical Records Department [address] [place] [address] Emergency Department Summary 05/01/18 1126 MR#: [id number] Acct: [id number] Name: CARISSA YIP . Rep #: [id number] : 1940 77 From: Sandor Sebastian MD [...] Chest pain This note was generated with Hearsay.it dictation software. It may contain incorrect words, [...] your Primary Care Provider. Call [facility] ([phone]) or report to the closest Emergency Room. Call 911 if necessary. 05/01/18 5797 <Electronically signed by Sandor Sebastian MD> Date Sandor Sebastian MD Cosigner Signature (If Indicated): Date CC: Lambert Larios MD DISCHARGE INSTRUCTION Observed: 05/01/2018 Status: F Source: [place] 1:54 PM [facility] REPOSITORY [facility] Medical Records Department [address] [place] [address] Discharge Instruction 05/01/18 1353 MR#: [id number] Acct: [id number] Name: ALANENZOCARISSA Sr. Rep #: [id number] : 1940 77 From: Sandor Sebastian MD [...] your Primary Care Provider. Call [facility] ([phone]) or report to the closest Emergency Room. Call 911 if necessary. 05/01/18 1354 <Electronically signed by Sandor Sebastian MD> Date Sandor Sebastian MD Cosigner Signature (If Indicated): Date CC: Lambert Larios MD CBC W/DIFF, AUTOMATED Collected: 05/01/2018 Status: F Source: [place] 11:18 AM [facility] REPOSITORY TYPE CODE TESTS RESULT OUT [...] Lymph 0.94 Performed By: #### L100.0100 #### [facility] [address] [place], [address] BASIC METABOLIC Collected: 05/01/2018 Status: F Source: [place] PROFILE (BMP) 11:18 AM [facility] REPOSITORY TYPE CODE TESTS RESULT OUT [...] 8 Performed By: #### L500.2500, L501.4010 #### [facility] [address] [place], [address] TROPONIN-I Collected: 05/01/2018 Status: F Source: [place] 11:18 AM [facility] REPOSITORY TYPE CODE TESTS RESULT OUT OF RANGE REFERENCE UNITS LAB L501.4010 <0.045 ng/mL Normal < 0.015 TROPONIN-I Result Comment: TROPONIN-I EXPECTED VALUES <0.045 Negative 0.045 - 0.590 Consistent with Cardiac Damage > OR = 0.600 Critical Value Not every elevated troponin is indicative of WA. These values should be used with clinical judgement in examining the patient's clinical picture for diagnosis. To establish a diagnosis of WA versus myocardial injury, there must be a demonstrated rise and/or fall in the troponin values, in addition to ischemic symptoms, EKG changes, new regional wall motion abnormality, and/or angiographical evidence. PLEASE NOTE: REFERENCE RANGES EDITED 17 Performed By: #### L500.2500, L501.4010 #### [facility] [address] [place], [address] CHEST 1 VIEW Observed: 05/01/2018 Status: F Source: [place] (PORTABLE) 11:10 AM [facility] REPOSITORY [facility] Imaging Services [address] [place] [address] Chest 1 View (Portable) MR#: [id number] Acct: [id number] Name: PHICARISSA G . Rep #: [id number] : 1940 M 77 From: Antonio Kahn MD PCP: Lambert Larios MD Status: REG ER Study: Chest 1 View (Portable) Date of Exam: 05/01/18 Exam# [id number] Ordering Dr: Sandor Sebastian MD STUDY: X-RAY [...] Antonio Kahn MD at 13:18 EST Tel [phone], Service support , CC: Sandor Sebastian MD; Lambert Larios MD Check Weigher: Signed MAGNESIUM Collected: 04/13/2018 Status: F Source: [place] 10:[address] [facility] REPOSITORY TYPE CODE TESTS RESULT OUT OF REFERENCE UNITS RANGE LAB MG 1.7-2.3 mg/dL Magnesium 2.1 XR ELBOW 3V AP/LAT/OTHER Observed: 04/07/2018 Status: F Source: [facility] 1:[address] [facility] REPOSITORY * * *Final Report* * * [...] process. IMPRESSION: Findings as detailed in report. Check Weigher: PSCB Transcribe Date/Time: Apr 07 2018 3:08P Dictated by : TALA GONZALEZ MD This examination was interpreted and the report reviewed and electronically signed by: TALA GONZALEZ MD on Apr 07 2018 3:10PM EST [id number] PROGRESS Observed: 04/07/2018 Status: COMPLETED Source: [place] 12:[address] [facility] REPOSITORY HNO ID: [id number] Author: Davida Chopra (Rt) Blake Valenzuela Service: (none) Author Type: Applications Engineer Type: Progress Notes Filed: 04/07/2018 1:00 PM Note Text: Radiology Service Progress Note PATIENT NAME: Carisas Yip DATE OF SERVICE: April 07, 2018 [...] PM PROGRESS Observed: 04/01/2018 Status: COMPLETED Source: [place] 3:[address] [facility] REPOSITORY HNO ID: [id number] Author: Elena Henderson) [facility] Service: (none) Author Type: Nurse Practitioner Type: [...] fatigue. Tolerating antibiotics. REVIEW OF SYSTEMS See [facility] PAST MEDICAL HISTORY Diagnosis Date - [...] Personal history of colonic polyps - Prothrombin U73329E mutation (HCC) 11/05/2017 - Pulmonary embolism (HCC) - Pulmonary hypertension (HCC) 01/30/2017 - 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 - Unspecified asthma(493.90) PAST SURGICAL HISTORY Procedure Laterality Date - APPENDECTOMY 11-02-14 - COLONOS W/REM POLYP SNARE 07/25/05 - COLONOS W/REM POLYP SNARE 01/17/11 - COLONOSCOP W/ OR W/O [facility] SPEC 07/28/14 Colonoscopy - COLONOSCOP W/ OR W/O [facility] SPEC 12-20-15 - COLONOSCOPY - DIAGNOSTIC [...] HUSSAIN MartinezOV Observed: 04/01/2018 Status: COMPLETED Source: [place] 3:[address] [facility] REPOSITORY Office Visit (INTMWS) EMILEECITLALICARISSA GIRALDO ([id number]) 1940 M Date Time Provider Department 04/01/18 [...] fatigue. Tolerating antibiotics. REVIEW OF SYSTEMS See [facility] PAST MEDICAL HISTORY Diagnosis Date - [...] Personal history of colonic polyps - Prothrombin Q08609K mutation (HCC) 11/05/2017 - Pulmonary embolism (HCC) - Pulmonary hypertension (HCC) 01/30/2017 - 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 - Unspecified asthma(493.90) PAST SURGICAL HISTORY Procedure Laterality Date - APPENDECTOMY 11-02-14 - COLONOS W/REM POLYP SNARE 07/25/05 - COLONOS W/REM POLYP SNARE 01/17/11 - COLONOSCOP W/ OR W/O [facility] SPEC 07/28/14 Colonoscopy - COLONOSCOP W/ OR W/O [facility] SPEC 12-20-15 - COLONOSCOPY - DIAGNOSTIC [...] 5 days Referring Provider: ELENA MONTERROSO (PETROS) [[id number]] Allergies As of Date: 04/01/2018 Noted Allergy Reaction INDOCIN (INDOMETHACIN SODIUM) 04/01/2011 14 - Other: See Comments Comments: Wheezing, can take naprosyn PERCOCET (OXYCODONE-ACETAMINOPHEN)01/08/2005 9 - Itching SEASONAL ALLERGIES 11/12/2012 14 - Other: See Comments Comments: Cat, Goats, Dust mites, molds, trees, grasses, weed, ragweed Date Reviewed: 04/01/2018 Reviewed by: Kait Velazquez Back Joiner - Fully Assessed Reason for Visit: Follow [...] left lower extremity [S81.802A] INVALID FOR* Prothrombin P14603J mutation (HCC) [D68.52] INVALID FOR*12/29/2017 Allergic rhinitis [...] 04/02/18 ALEJANDRA Observed: 03/30/2018 Status: COMPLETED Source: [place] 11:[address] [facility] REPOSITORY Office Visit (PULMWS) CARISSA YIP ([id number]) 1940 Feng Date Time Provider Department 03/30/18 11:00 AM LENI MCBRIDE PULNATHALIE During your visit today, we recorded the following information about you: Pulse Respiration Blood pressure Weight 101/minute 18/minute 128/72 93.4 kg Leni Mcbride PA-C 03/30/2018 11:13 AM Signed [facility], 03/30/18: INTERVAL HISTORY: The patient is here [...] edema, orthopnea. GI: No heartburn, dysphagia, diarrhea. Uro/FORGESMITH: No dysuria, hesitancy, nocturia. Musculoskeletal: No pain. [...] expressed understanding and acceptance of my answers. Lnei Mcbride PA-C [facility] [place] [address] Leni Mcbride PA-C 03/30/2018 11:10 [...] up as scheduled. Referring Provider: LENI MCBRIDE [[id number]] Allergies As of Date: 03/30/2018 Noted Allergy [...] AREDS 7,160 UNIT* Take one(1) tablet two(2) lnik* Problem List As Of Date 03/30/2018 Noted [...] left lower extremity [S81.802A] INVALID FOR* Prothrombin S48712G mutation (HCC) [D68.52] INVALID FOR*12/29/2017 Allergic rhinitis [...] 03/30/18 PROGRESS Observed: 03/30/2018 Status: COMPLETED Source: [place] 10:50 AM [facility] REPOSITORY HNO ID: [id number] Author: Leni Mcbride Service: (none) Author Type: Physician Collections And Archives Director Type: Progress Notes Filed: 03/30/2018 11:13 AM Note Text: [facility], 03/30/18: INTERVAL HISTORY: The patient is here [...] edema, orthopnea. GI: No heartburn, dysphagia, diarrhea. Uro/FORGESMITH: No dysuria, hesitancy, nocturia. Musculoskeletal: No pain. [...] acceptance of my answers. Leni Mcbride PA-C [facility] [address] [phone] PROGRESS Observed: 03/27/2018 Status: COMPLETED Source: [place] 12:36 PM [facility] REPOSITORY HNO ID: [id number] Author: Vasquez Reynoso Service: (none) Author Type: [...] Personal history of colonic polyps - Prothrombin G06058H mutation (HCC) 11/05/2017 - Pulmonary embolism (HCC) - Pulmonary hypertension (HCC) 01/30/2017 - PULMONARY NODULES 06/03/2006 - Rosacea 02/25/2007 - Skin cancer of face [facility]. - Unspecified asthma(493.90) MEDICATIONS: furosemide (LASIX) 20 [...] MD CNOV Observed: 03/27/2018 Status: COMPLETED Source: [place] 12:[address] [facility] REPOSITORY Office Visit (WSTR) CARISSA YIP ([id number]) 1940 M Date Time Provider Department 03/27/18 12:15 PM [facility] During your visit today, we recorded the [...] Diabetes mellitus type 2, controlled, without complications ([facility]) 08/25/2017 - Diverticulosis of colon (without mention [...] Personal history of colonic polyps - Prothrombin I60019U mutation (HCC) 11/05/2017 - Pulmonary embolism (HCC) - Pulmonary hypertension (HCC) 01/30/2017 - 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 - Unspecified asthma(493.90) MEDICATIONS: furosemide (LASIX) 20 [...] left lower extremity [S81.802A] INVALID FOR* Prothrombin E63095P mutation (HCC) [D68.52] INVALID FOR*12/29/2017 Allergic rhinitis [...] METABOLIC PANL Collected: 03/25/2018 Status: F Source: [place] 10:30 AM [facility] REPOSITORY TYPE [...] GFR. MAGNESIUM Collected: 03/25/2018 Status: F Source: [place] 10:[address] [facility] REPOSITORY TYPE CODE TESTS RESULT OUT OF REFERENCE UNITS RANGE LAB MG 1.7-2.3 mg/dL Low Magnesium 1.6 NT PRO BNP Collected: 03/25/2018 Status: F Source: [place] 10:[address] [facility] REPOSITORY TYPE CODE TESTS RESULT OUT OF REFERENCE UNITS RANGE LAB PBNP <450 pg/mL PRO B Natr 100 Peptide Performed By: #### NTBNP #### [facility] [address] [id number] PROGRESS Observed: 03/25/2018 Status: COMPLETED Source: [place] 10:[address] [facility] REPOSITORY HNO ID: [id number] Author: Reg Verma Service: (none) Author Type: [...] N/A Beta birgit for ASHD with prior WA or prior LVEF<40 (NQF 0070) - N/A [...] MD CNOV Observed: 03/25/2018 Status: COMPLETED Source: [place] 10:[address] [facility] REPOSITORY Office Visit (CAWSTR) CARISSA YIP ([id number]) 1940 M Date Time Provider Department 03/25/18 [...] N/A Beta birgit for ASHD with prior WA or prior LVEF<40 (NQF 0070) - N/A [...] the following areas and commit to making long-term changes. EAT A WHOLE FOOD, PLANT BASED [...] in your area. Referring Provider: LENI MCBRIDE [[id number]] Allergies As of Date: 03/25/2018 Noted Allergy [...] [I10] Order(s):BASIC METABOLIC PNL [SQBMP] Order #: [id number] FUTURE MAGNESIUM BLD [SQMG1] Order #: [id number] FUTURE NT PRO BNP [SQNTBNP] Order #: [id number] FUTURE Prescriptions as of 03/25/2018 Sig: VENTOLIN [...] left lower extremity [S81.802A] INVALID FOR* Prothrombin M66717D mutation (HCC) [D68.52] INVALID FOR*12/29/2017 Allergic rhinitis [...] the following areas and commit to making exterminator termite changes. EAT A WHOLE FOOD, PLANT BASED [...] F Source: [facility]ICAL 1:31 PM [facility] REPOSITORY [facility] [address] [place] [id number] [facility] History AND Physical 03/17/18 1328 MR#: [id number] Acct: [id number] Name: CARISSA YIP Rep #: [id number] : 1940 77 From: [place] Cooper MD [...] associated with fever. He was hospitalized at [facility] for approximately 4 days. He was [...] Date Recorded By Document 03/17/18 11:50 DL [id number] 03/17/18 11:55 DL Wound Center Nurse 1 [Ulcer Assessment] #7 LATERAL LLE- POST OP 09/12/17 WC - Nurse 2 - General Ulcer CM Notes Start: 02/17/18 11:22 Freq: Status: Active Protocol: Activity Type Activity Date Activity User E-Sign Co-Sign Detail Recorded Client Recorded Date Recorded By Document 03/17/18 12:41 JS [id number] 03/17/18 12:47 JS Wound Center Nurse 2 [...] Date Recorded By Document 02/17/18 11:39 DV [id number] 02/17/18 11:46 DV Wound Center Nurse 2 [...] F Source: [facility] 11:30 AM [facility] REPOSITORY [facility] W[facility] [address] [place] [address] Wound Ctr History AND Physical 03/10/18 1126 MR#: [id number] Acct: [id number] Name: CARISSA YIP Rep #: [id number] : 1940 77 From: Oz Cooper MD [...] associated with fever. He was hospitalized at [facility] for approximately 4 days. He was [...] Date Recorded By Document 03/10/18 10:57 DL [id number] 03/10/18 11:03 DL Wound Center Nurse 1 [Ulcer Assessment] #7 LATERAL LLE- POST OP 09/12/17 -Current Size (cm) - Length 0.1 -Current Size (cm) - Width 0.1 WC - Nurse 2 - General Ulcer CM Notes Start: 02/17/18 11:22 Freq: Status: Active Protocol: Activity Type Activity Date Activity User E-Sign Co-Sign Detail Recorded Client Recorded Date Recorded By Document 03/10/18 11:09 JODI [id number] 03/10/18 11:21 JODI Wound Center Nurse 2 [...] collaboration with his primary care physician. 03/10/18 7689 <Electronically signed by Oz Cooper MD> Date Oz Cooper MD CC: Signed CNPN Observed: 03/05/2018 Status: COMPLETED Source: [place] 12:[address] [facility] REPOSITORY Telephone (PULWS) CARISSA YIP ([id number]) 1940 M Date Time Provider Department 03/05/18 [...] done to consider bronchoscopy. Leni Mcbride PA-C [facility] [address] [phone] Ines Tsang PSR 03/05/2018 12:20 PM Signed [...] Diagnosis:Dyspnea and respiratory abnormalities [R06.00, R06.89] Order(s):ROCHELLE [[id number]] Order #: [id number]: 1 FUTURE Prescriptions as of 03/05/2018 Sig: [...] left lower extremity [S81.802A] INVALID FOR* Prothrombin H97111T mutation (HCC) [D68.52] INVALID FOR*12/29/2017 Allergic rhinitis due to cats [J30.81] INVALID FOR* Allergic rhinitis due to dust mite [J30.89] INVALID FOR* Allergic rhinitis due to fungal spores [J30.89] INVALID FOR* Seasonal allergic rhinitis due to pollen [J30.1]INVALID FOR* Encounter Status:Closed by LENI MCBRIDE on 03/05/18 PROGRESS Observed: 03/04/2018 Status: COMPLETED Source: [place] 11:[address] [facility] REPOSITORY HNO ID: [id number] Author: Paula PrakashRt) Blake [place] Service: (none) Author Type: Applications Engineer Type: Progress Notes Filed: 03/04/2018 11:14 AM [...] AM PROGRESS Observed: 03/04/2018 Status: COMPLETED Source: [place] 11:[address] [facility] REPOSITORY HNO ID: [id number] Author: Heather Lozano Service: (none) Author Type: [...] TIME: PATIENT DISCHARGED TO: Ambulatory patient, left CT department area. A Diagnostic radioactive procedure has taken place, with no further precautions necessary other than routine body substance precautions. More information regarding radiation safety can be found using this link: [email or web address] SIGNATURE: Heather Lozano PATIENT NAME: Carissa Yip DATE: March 04, 2018 TIME: 11:11 AM PAGER/CONTACT #: XR CHEST 2V FRONTAL/LAT Observed: 03/04/2018 Status: F Source: [place] 11:11 AM [facility] REPOSITORY * * *Final Report* [...] evidence of developing abnormality or acute process. Check Weigher: [facility] Transcribe Date/Time: Mar 04 2018 12:52P Dictated by : GÓMEZ ROBLES MD This examination was interpreted and the report reviewed and electronically signed by: GÓMEZ ROBLES MD on Mar 04 2018 12:59PM EST [id number] NM LUNG VENT / Observed: 03/04/2018 Status: F Source: [place] PERF VQ 11:[address] [facility] REPOSITORY * * *Final Report* * * DATE OF EXAM: Mar 04 2018 11:08AM [address] LUNG VENT / PERF VQ / [...] WITH A LOW PROBABILITY OF PULMONARY EMBOLISM. Check Weigher: [facility] Transcribe Date/Time: Mar 04 2018 11:11A Dictated by : KARINA WILSON MD This examination was interpreted and the report reviewed and electronically signed by: KARINA WILSON MD on Mar 04 2018 11:11AM EST [id number] CNOV Observed: 03/02/2018 Status: COMPLETED Source: [place] 10:[address] [facility] REPOSITORY Office Visit (PULMWS) CARISSA YIP ([id number]) 1940 M Date Time Provider Department 03/02/18 10:30 AM LENI MCBRIDE During your visit today, we recorded the following information about you: Pulse Respiration Blood pressure Weight 108/minute 15/minute 136/70 93 kg Melissa Kumar CASSIE 03/02/2018 10:09 AM Signed Leni Mcbride PA-C 03/02/2018 10:32 AM Signed [facility], 03/02/18: INTERVAL HISTORY: The patient is here [...] recliner orthopnea. GI: No heartburn, dysphagia, diarrhea. Uro/FORGESMITH: No dysuria, hesitancy, nocturia. Musculoskeletal: No pain. [...] acceptance of my answers. 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 REPOSITORY O ID: [id number] Author: Leni Mcbride Service: (none) Author Type: Physician Collections And Archives Director Type: Progress Notes Filed: 03/02/2018 10:32 AM Note Text: [facility], 03/02/18: INTERVAL HISTORY: The patient is here [...] recliner orthopnea. GI: No heartburn, dysphagia, diarrhea. Uro/FORGESMITH: No dysuria, hesitancy, nocturia. Musculoskeletal: No pain. [...] acceptance of my answers. Leni Mcbride PA-C [facility] [address] [place] [address] WOUND CTR HISTORY Observed: 02/24/2018 Status: F Source: [facility] 11:59 AM [facility] REPOSITORY [facility] Wound Healing Center [address] [place] [address] Wound Ctr History AND Physical 02/24/18 1155 MR#: [id number] Acct: [id number] Name: CARISSA YIP Rep #: [id number] : 1940 77 From: Oz Cooper MD [...] associated with fever. He was hospitalized at [facility] for approximately 4 days. He was [...] Date Recorded By Document 02/24/18 11:09 DAPHNE [id number] 02/24/18 11:15 DAPHNE Wound Center Nurse 1 [Ulcer Assessment] #7 LATERAL LLE- POST OP 09/12/17 -Current Size (cm) - Length 0.1 -Current Size (cm) - Width 0.1 WC - Nurse 2 - General Ulcer CM Notes Start: 02/17/18 11:22 Freq: Status: Active Protocol: Activity Type Activity Date Activity User E-Sign Co-Sign Detail Recorded Client Recorded Date Recorded By Document 02/24/18 11:31 JODI [id number] 02/24/18 11:48 JODI Wound Center Nurse 2 [...] 2V FRONTAL/LAT Observed: 02/20/2018 Status: F Source: [place] 1:12 PM [facility] REPOSITORY * [...] without interval change. No acute cardiopulmonary process. Check Weigher: [facility] Transcribe Date/Time: Feb 20 2018 1:40P Dictated by : TALA GONZALEZ MD This examination was interpreted and the report reviewed and electronically signed by: TALA GONZALEZ MD on Feb 20 2018 1:43PM EST [id number] PROGRESS Observed: 02/20/2018 Status: COMPLETED Source: [place] 1:[address] [facility] REPOSITORY HNO ID: [id number] Author: Davida Chopra (Blake Woo Service: (none) Author Type: Applications Engineer Type: Progress Notes Filed: 02/20/2018 1:13 PM [...] F Source: [facility] 11:58 AM [facility] REPOSITORY [facility] Wound Healing Center [address] [place] [address] Wound Ctr History AND Physical 02/17/18 1152 MR#: [id number] Acct: [id number] Name: CARISSA YIP Rep #: [id number] : 1940 77 From: Oz Cooper MD [...] associated with fever. He was hospitalized at [facility] for approximately 4 days. He was [...] Date Recorded By Document 02/17/18 11:24 HAMZAH [id number] 02/17/18 11:26 HAMZAH Wound Center Nurse 1 [...] Date Recorded By Document 02/17/18 11:39 DV [id number] 02/17/18 11:46 DV Musculoskeletal: No Muscle Wasting [...] Date Recorded By Document 02/17/18 11:39 DV [id number] 02/17/18 11:46 DV Wound Center Nurse 2 [...] care physician. 02/17/18 1157 <Electronically signed by Oz Cooper MD> Date Oz Cooper MD CC: Signed CNOV Observed: 02/12/2018 Status: COMPLETED Source: [place] 3:[address] [facility] REPOSITORY Office Visit (PULMWS) CARISSA YIP ([id number]) 1940 M Date Time Provider Department 02/12/18 3:00 PM LENI MCBRIDE During your visit today, we recorded the following information about you: Pulse Respiration Blood pressure Weight 86/minute 14/minute 134/80 92.5 kg Leni Mcbride PA-C 02/12/2018 2:36 PM Signed [facility], 02/12/18: INTERVAL HISTORY: The patient is here [...] edema, orthopnea. GI: No heartburn, dysphagia, diarrhea. Uro/FORGESMITH: No dysuria, hesitancy, nocturia. Musculoskeletal: No pain. [...] acceptance of my answers. Leni Mcbride PA-C [facility] [address] [phone] Leni Mcbride PA-C 02/12/2018 2:36 PM Signed [...] daysDisp: 20 tabletRfl: 0 SPIROMETRY BASELINE ONLY [[id number]] Order #: [id number] FUTURE NITRIC OXIDE, EXHALED [9652530] Order #: [id number] FUTURE Prescriptions as of 02/12/2018 Sig: NYSTATIN-TRIAMCINOLONE [...] left lower extremity [S81.802A] INVALID FOR* Prothrombin R28085R mutation (HCC) [D68.52] INVALID FOR*12/29/2017 Allergic rhinitis [...] 02/12/18 PROGRESS Observed: 02/12/2018 Status: COMPLETED Source: [place] 2:03 PM [facility] REPOSITORY HNO ID: [id number] Author: Leni Mcbride Service: (none) Author Type: Physician Collections And Archives Director Type: Progress Notes Filed: 02/12/2018 2:36 PM Note Text: [facility], 02/12/18: INTERVAL HISTORY: The patient is here [...] edema, orthopnea. GI: No heartburn, dysphagia, diarrhea. Uro/FORGESMITH: No dysuria, hesitancy, nocturia. Musculoskeletal: No pain. [...] acceptance of my answers. Leni Mcbride PA-C [facility] [address] [place] [address] WOUND CTR HISTORY Observed: 02/10/2018 Status: F Source: [facility] 12:46 PM [facility] Wound Healing Center [address] [place] [address] Wound Ctr History AND Physical 02/10/18 1243 MR#: [id number] Acct: [id number] Name: CARISSA YIP Rep #: [id number] : 1940 77 From: Oz Cooper MD [...] associated with fever. He was hospitalized at [facility] for approximately 4 days. 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 List of current specialists seen: Park Maintainer- [facility]- [facility] Refueling Ramp Supervisor- Dr. Verma End of Live Planning discussed [...] - Vaccines recommended Influenza - Glaucoma screening Elean Monterroso APRN.CNP CNOV Observed: 02/09/2018 Status: COMPLETED Source: [place] 9:[address] [facility] REPOSITORY Office Visit (INTMWS) CARISSA YIP ([id number]) 1940 M Date Time Provider Department 02/09/18 9:20 AM ELENA MONTERROSO (PETROS) INTMWS During your visit today, we recorded the following information about you: Temperature Pulse Respiration Blood pressure 98.4 degrees 94/minute 14/minute 136/70 Weight 92.5 kg Kait Velazquez [facility] 02/09/2018 1:10 PM Signed 77 year old male here for INACTIVATED INFLUENZA VACCINE. 8642-2927 Season Patient is identified by name and date of : Yes [] CONTRAINDICATIONS color enhanced section Age less than 6 months? No Allergy to eggs, chicken, chicken feathers, or chicken dander? No Allergy to thimerosal (a preservative) or formaldehyde, gelatin? No History of severe reaction to any vaccine component or a previous dose of influenza vaccination? No History of Guillain-[place] Syndrome within 6 weeks after a previous [...] sheet given? Yes See immunization activity in [facility] for details of immunizations adminstered today. Patient age: [age] year old For The 4044-8711 Flu Season 6-35 months old: Fluzone 0.25 [...] dose in one months time. Elena Monterroso, DIRECTOR OF FINANCE.HEALTH AND FITNESS PROFESSOR 02/09/2018 1:10 PM Signed Medicare Yearly Visit [...] Personal history of colonic polyps - Prothrombin H08863U mutation (HCC) 11/05/2017 - Pulmonary embolism (HCC) - Pulmonary hypertension (HCC) 01/30/2017 - 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 List of current specialists seen: Park Maintainer- [facility]- [facility] Refueling Ramp Supervisor- Dr. Verma End of Live Planning discussed [...] recommended Influenza - Glaucoma screening Elena Monterroso APRN.HEALTH AND FITNESS PROFESSOR Referring Provider: SELF [200] Allergies As of Date: 02/09/2018 Noted Allergy Reaction INDOCIN (INDOMETHACIN SODIUM) 04/01/2011 14 - Other: See Comments Comments: Wheezing, can take naprosyn PERCOCET (OXYCODONE-ACETAMINOPHEN)01/08/2005 9 - Itching SEASONAL ALLERGIES 11/12/2012 14 - Other: See Comments Comments: Cat, Goats, Dust mites, molds, trees, grasses, weed, ragweed Date Reviewed: 02/09/2018 Reviewed by: Kait Velazquez Back Joiner - Fully Assessed Reason for Visit: Medicare Wellness Exam [4060] Imm/Inj [58] Reason For Visit History Recorded Primary Visit Diagnosis:Need for vaccination [Z23] Other Visit Diagnosis:Candidal balanitis [B37.42] Order(s):INFLUENZA SEASONAL HIGH DOSE AGE 65+ [82984EKK] Order #: [id number] nystatin-triamcinolone (MYCOLOG II) creamApply 1 application to [...] left lower extremity [S81.802A] INVALID FOR* Prothrombin Y78809N mutation (HCC) [D68.52] INVALID FOR*12/29/2017 Allergic rhinitis [...] 02/09/18 PROGRESS Observed: 02/09/2018 Status: COMPLETED Source: [place] 9:15 AM [facility] [place] REPOSITORY [facility] ID: [id number] Author: Kait Velazquez [facility] Service: (none) Author Type: (none) Type: Progress Notes Filed: 02/09/2018 1:10 PM Note Text: 77 year old male here for INACTIVATED INFLUENZA VACCINE. 3618-2627 Season Patient is identified by name and date of : Yes [] CONTRAINDICATIONS color enhanced section Age less than 6 months? No Allergy to eggs, chicken, chicken feathers, or chicken dander? No Allergy to thimerosal (a preservative) or formaldehyde, gelatin? No History of severe reaction to any vaccine component or a previous dose of influenza vaccination? No History of Guillain-Dayton Syndrome within 6 weeks after a previous [...] sheet given? Yes See immunization activity in [facility] for details of immunizations adminstered today. Patient age: [age] year old For The 5409-3180 Flu Season 6-35 months old: Fluzone 0.25 [...] F Source: [facility] 11:38 AM [facility] REPOSITORY [facility] Wound Healing Center [address] [place] [address] Wound Ctr History AND Physical 02/03/18 1133 MR#: [id number] Acct: [id number] Name: CARISSA YIP Rep #: [id number] : 1940 77 From: Oz Cooper MD [...] associated with fever. He was hospitalized at [facility] for approximately 4 days. He was [...] Recorded Date Recorded By Document 02/03/18 10:10 [id number] 02/03/18 10:12 Wound Center Nurse 1 [Ulcer Assessment] #7 LATERAL LLE- POST OP 09/12/17 WC - Nurse 2 - General Ulcer CM Notes Start: 01/20/18 12:49 Freq: Status: Active Protocol: Activity Type Activity Date Activity User E-Sign Co-Sign Detail Recorded Client Recorded Date Recorded By Document 02/03/18 10:26 CS [id number] 02/03/18 10:33 CS Musculoskeletal: No Muscle Wasting [...] F Source: [facility] 11:54 AM [facility] REPOSITORY [facility] Wound Healing Center [address] [place] [address] Wound Ctr History AND Physical 01/27/18 1150 MR#: [id number] Acct: [id number] Name: CARISSA YIP Rep #: [id number] : 1940 77 From: Oz Cooper MD [...] associated with fever. He was hospitalized at [facility] for approximately 4 days. He was [...] Recorded Date Recorded By Document 01/27/18 10:56 [facility] [id number] 01/27/18 11:11 [facility] Wound Center Nurse 1 [Ulcer Assessment] #7 LATERAL LLE- POST OP 09/12/17 -Combined with other wound No WC - Nurse 2 - General Ulcer CM Notes Start: 01/20/18 12:49 Freq: Status: Active Protocol: Activity Type Activity Date Activity User E-Sign Co-Sign Detail Recorded Client Recorded Date Recorded By Document 01/27/18 11:48 [id number] 01/27/18 11:49 Wound Center Nurse 2 [Procedure/Treatment] [...] Signed CNPTOUTREACH Observed: 01/27/2018 Status: COMPLETED Source: [place] 12:[address] [facility] REPOSITORY Patient Outreach (INTMWH) CARISSA YIP ([id number]) 1940 M Date Time Provider Department 01/27/18 LAMBERT LARIOS [facility] During your visit today, we recorded the [...] Assessed Visit Diagnosis:Medication management [Z79.899] Order(s):HGB A1C [HQZMY5C] Order #: [id number] FUTURE Prescriptions as of 01/27/2018 Sig: GUAIFENESIN [...] left lower extremity [S81.802A] INVALID FOR* Prothrombin Q22504R mutation (HCC) [D68.52] INVALID FOR*12/29/2017 Allergic rhinitis due to cats [J30.81] INVALID FOR* Allergic rhinitis due to dust mite [J30.89] INVALID FOR* Allergic rhinitis due to fungal spores [J30.89] INVALID FOR* Seasonal allergic rhinitis due to pollen [J30.1]INVALID FOR* Encounter Status:Closed by EPIC, PRODUSER on 02/27/18 WOUND CTR HISTORY Observed: 01/20/2018 Status: F Source: [facility] 1:40 PM [facility] REPOSITORY [facility] Wound Healing Center [address] [place] [address] Wound Ctr History AND Physical 01/20/18 1335 MR#: [id number] Acct: [id number] Name: CARISSA YIP Rep #: [id number] : 1940 77 From: Oz Cooper MD [...] associated with fever. He was hospitalized at [facility] for approximately 4 days. He was [...] Recorded Date Recorded By Document 01/20/18 12:49 [id number] 01/20/18 12:51 Wound Center Nurse 1 [Ulcer [...] Recorded Date Recorded By Document 01/20/18 13:24 [id number] 01/20/18 13:28 Wound Center Nurse 2 Musculoskeletal: [...] Recorded Date Recorded By Document 01/20/18 13:24 [id number] 01/20/18 13:28 Wound Center Nurse 2 #7 [...] F Source: [facility] 12:48 PM [facility] REPOSITORY [facility] Wound Healing Center [address] [place] [address] Wound Ctr History AND Physical 01/13/18 1246 MR#: [id number] Acct: [id number] Name: CARISSA YIP Rep #: [id number] : 1940 77 From: Oz Cooper MD [...] associated with fever. He was hospitalized at [facility] for approximately 4 days. He was [...] Date Recorded By Document 01/13/18 11:42 CS [id number] 01/13/18 11:45 CS Wound Center Nurse 1 [Ulcer Assessment] #7 LATERAL LLE- POST OP 09/12/17 - Nurse 2 - General Ulcer CM Notes Start: 12/23/17 12:07 Freq: Status: Active Protocol: Activity Type Activity Date Activity User E-Sign Co-Sign Detail Recorded Client Recorded Date Recorded By Document 01/13/18 12:30 JS [id number] 01/13/18 12:43 JS Wound Center Nurse 2 [...] Date Recorded By Document 12/23/17 12:28 JS [id number] 12/23/17 12:30 Wound Center Nurse 2 #7 [...] F Source: [facility] 12:44 PM [facility] REPOSITORY [facility] Wound Healing Center [address] [place] [address] Wound Ctr History AND Physical 01/06/18 1241 MR#: [id number] Acct: [id number] Name: ACRISSA YIP Rep #: [id number] : 1940 77 From: Oz Cooper MD [...] associated with fever. He was hospitalized at [facility] for approximately 4 days. He was [...] Date Recorded By Document 01/06/18 11:32 DAPHNE [id number] 01/06/18 11:40 DL Wound Center Nurse 1 [Ulcer Assessment] #7 LATERAL LLE- POST OP 09/12/17 -Current Size (cm) - Length 14.8 -Current Size (cm) - Width 0.6 WC - Nurse 2 - General Ulcer CM Notes Start: 12/23/17 12:07 Freq: Status: Active Protocol: Activity Type Activity Date Activity User E-Sign Co-Sign Detail Recorded Client Recorded Date Recorded By Document 01/06/18 12:11 JODI [id number] 01/06/18 12:15 JODI Wound Center Nurse 2 [...] Signed PROGRESS Observed: 01/01/2018 Status: COMPLETED Source: [place] 1:44 PM [facility] [place] REPOSITORY [facility] ID: [id number] Author: Chari Graff Service: (none) Author Type: [...] are up-to-date. He previously worked in a [employer]. Exposures included asbestosis and chlorine. 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 - Unspecified asthma(493.90) PAST SURGICAL HISTORY Procedure Laterality Date - APPENDECTOMY 11-02-14 - COLONOS W/REM POLYP SNARE 07/25/05 - COLONOS W/REM POLYP SNARE 01/17/11 - COLONOSCOP W/ OR W/O [facility] SPEC 07/28/14 Colonoscopy - COLONOSCOP W/ OR W/O [facility] SPEC 12-20-15 - COLONOSCOPY - DIAGNOSTIC [...] conditioning: Central air Basement: Dry basement Bob: Sulq-fp-many carpeting in bedrooms, Hardwood floor in living [...] rhinitis: Aggressive environmental controls. Recommended he start kvzu-oaq-nzboopl Claritin 10 mg or Emily 180 mg [...] MD CNOV Observed: 01/01/2018 Status: COMPLETED Source: [place] 9:[address] [facility] REPOSITORY Office Visit (ALLMED) CARISSA YIP ([id number]) 1940 M Date Time Provider Department 01/01/18 9:00 AM CHARI GRAFF During your visit today, we recorded the following information about you: Pulse Respiration Blood pressure Weight 91/minute 18/minute 135/76 92.1 kg Marylu Bautista RN 01/01/2018 9:29 AM Signed Patient uses albuterol twice daily. Feels like breathing is not the best over past year. Chari Graff MD 01/01/2018 9:38 AM Signed Take hmxu-eto-upnmysr loratidine (claritin) 10 mg or fexofenadine (emily) [...] are up-to-date. He previously worked in a [employer]. Exposures included asbestosis and chlorine. 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 - Unspecified asthma(493.90) PAST SURGICAL HISTORY Procedure [...] conditioning: Central air Basement: Dry basement Bob: Fqcx-zm-mioo carpeting in bedrooms, Hardwood floor in living [...] rhinitis: Aggressive environmental controls. Recommended he start hdsg-wmf-jjfnmxl Claritin 10 mg or Emily 180 mg [...] left lower extremity [S81.802A] INVALID FOR* Prothrombin A72100Z mutation (HCC) [D68.52] INVALID FOR*12/29/2017 Allergic rhinitis due to cats [J30.81] INVALID FOR* Allergic rhinitis due to dust mite [J30.89] INVALID FOR* Allergic rhinitis due to fungal spores [J30.89] INVALID FOR* Seasonal allergic rhinitis due to pollen [J30.1]INVALID FOR* Other instructions from your clinician: Take amls-kry-lgaoxda loratidine (claritin) 10 mg or fexofenadine (emily) [...] on file. fluticasone (FLONASE) 50 mcg/actuati* 1 Acrlos Alberto* 4 10/07/2017 01/01/2018 Sig: instill 2 [...] F Source: [facility]ENDA AND PHYSICAL 12:07 PM [facility] REPOSITORY [facility] Wound Healing Center [address] [place] [address] Wound Ctr History AND Physical 12/30/17 1203 MR#: [id number] Acct: [id number] Name: CARISSA YIP Rep #: [id number] : 1940 77 From: Oz Cooper MD [...] associated with fever. He was hospitalized at [facility] for approximately 4 days. He was [...] Recorded Date Recorded By Document 12/30/17 10:35 [id number] 12/30/17 10:43 [facility] - Nurse 2 - General Ulcer CM Notes Start: 12/23/17 12:07 Freq: Status: Active Protocol: Activity Type Activity Date Activity User E-Sign Co-Sign Detail Recorded Client Recorded Date Recorded By Document 12/30/17 11:48 JS [id number] 12/30/17 11:59 Wound Center Nurse 2 [Procedure/Treatment] [...] collaboration with his primary care physician. 12/30/17 2477 <Electronically signed by Oz Cooper MD> Date Oz Cooper MD CC: Signed PROGRESS Observed: 12/29/2017 Status: COMPLETED Source: [place] 11:44 PM [facility] REPOSITORY HNO ID: [id number] Author: Lambert Larios Service: (none) Author Type: Physician Type: Progress Notes Filed: 12/30/2017 12:01 AM Note Text: This note was created using Photop Technologiesriter. Subjective Carissa Yip is a 77 year old male here for follow up. His left leg wound was nearly healed. His work up for hypercoagulable state was equivocal so exterminator termite anticoagulation was not recommended. His diabetes mellitus [...] MD CNOV Observed: 12/29/2017 Status: COMPLETED Source: [place] 11:[address] [facility] REPOSITORY Office Visit (INTMWS) CARISSA YIP ([id number]) 1940 M Date Time Provider Department 12/29/17 [...] up for hypercoagulable state was equivocal so exterminator termite anticoagulation was not recommended. His diabetes mellitus was controlled. Eye exam was done. 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 Tract Symptoms Depression With Anxiety Esophageal Reflux Macular Degeneration (Senile) of Retina, Unspecified Diabetes Mellitus Type 2, Controlled, Without Complications ([facility]) Hyperlipidemia Rosacea Essential Hypertension Generalized Osteoarthritis of [...] Lambert Larios MD Referring Provider: LAMBERT LARIOS [[id number]] Allergies As of Date: 12/29/2017 Noted Allergy [...] wound of left lower extremity, subsequent encounter [S84.229D] Prescriptions as of 12/29/2017 Sig: AZELASTINE 137 [...] left lower extremity [S81.802A] INVALID FOR* Prothrombin O99550R mutation (HCC) [D68.52] INVALID FOR*12/29/2017 Medications Discontinued [...] Take 2 capsules once a day. 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 Patient not taking: Reported on 11/18/2017 Disc: Reason for discontinue is not on file. Disposition: Return in about 6 months (around 07/01/2018). Follow-up and Disposition History Recorded Encounter Status:Closed by LAMBERT LARIOS MD on 12/30/17 WOUND CTR HISTORY Observed: 12/23/2017 Status: F Source: [facility] AND PHYSICAL 12:39 PM [facility] REPOSITORY [facility] Wound Healing Center [address] [place] [address] Wound Ctr History AND Physical 12/23/17 1235 MR#: [id number] Acct: [id number] Name: CARISSA YIP Rep #: [id number] : 1940 77 From: Oz Cooper MD [...] associated with fever. He was hospitalized at [facility] for approximately 4 days. He was [...] Date Recorded By Document 12/23/17 12:07 HAMZAH [id number] 12/23/17 12:18 HAMZAH Wound Center Nurse 1 [Ulcer Assessment] #7 LATERAL LLE- POST OP 09/12/17 WC - Nurse 2 - General Ulcer CM Notes Start: 12/23/17 12:07 Freq: Status: Active Protocol: Activity Type Activity Date Activity User E-Sign Co-Sign Detail Recorded Client Recorded Date Recorded By Document 12/23/17 12:28 JODI [id number] 12/23/17 12:30 JS Wound Center Nurse 2 [...] Recorded Date Recorded By Document 12/23/17 12:28 [id number] 12/23/17 12:30 JODI Wound Center Nurse 2 [...] Signed CNOV Observed: 12/19/2017 Status: COMPLETED Source: [place] 1:[address] [facility] REPOSITORY Office Visit (PULMWS) CARISSA YIP ([id number]) 1940 M Date Time Provider Department 12/19/17 1:30 PM LENI MCBRIDE During your visit today, we recorded the following information about you: Pulse Respiration Blood pressure Weight 93/minute 16/minute 138/78 92.5 kg Height 1.67 m Leni Mcbride PA-C 12/19/2017 1:50 PM Signed [facility], 12/19/17: INTERVAL HISTORY: The patient is here for follow up of asthma; the last Pulmonary Clinic visit was 09/18/17. Patient was evaluated in [place] ED 12/06/17 for wheezing and shortness of [...] No heartburn, dysphagia. No nausea, vomiting, diarrhea. Uro/FORGESMITH: No dysuria, hesitancy, nocturia. Musculoskeletal: No pain. [...] IgG <9 0 - [address] [facility] Cardiolipin Ab, IgM 26 (H) 0 - [address] [facility] Cardiolipin Ab, IgA <9 0 [...] acceptance of my answers. Leni Mcbride PA-C [facility] [address] [place] [address] Melissa Kumar CASSIE 12/19/2017 1:14 PM Signed Intake information documented in the prior visit with Char Sandhu, LINING SETTER today. Leni Mcbride PA-C 12/19/2017 1:48 PM [...] Verma as scheduled. 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 Patient was evaluated in [place] ED 12/06/17 for wheezing and shortness of [...] No heartburn, dysphagia. No nausea, vomiting, diarrhea. Uro/FORGESMITH: No dysuria, hesitancy, nocturia. Musculoskeletal: No pain. [...] IgG <9 0 - [address] [facility] Cardiolipin Ab, IgM 26 (H) 0 - [address] [facility] Cardiolipin Ab, IgA <9 0 [...] acceptance of my answers. Leni Mcbride PA-C [facility] [address] [place] [address] WOUND CTR HISTORY Observed: 12/16/2017 Status: F Source: [facility] PHYSICAL 12:14 PM [facility] Wound Healing Center [address] [place] [address] Wound Ctr History AND Physical 12/16/17 1209 MR#: [id number] Acct: [id number] Name: CARISSA YIP Rep #: [id number] : 1940 77 From: Oz Cooper MD [...] associated with fever. He was hospitalized at [facility] for approximately 4 days. He was [...] Recorded Date Recorded By Document 12/16/17 10:37 [id number] 12/16/17 10:40 Wound Center Nurse 1 [Ulcer Assessment] #7 LATERAL LLE- POST OP 09/12/17 -Combined with other wound No WC - Nurse 2 - General Ulcer CM Notes Start: 11/18/17 11:45 Freq: Status: Active Protocol: Activity Type Activity Date Activity User E-Sign Co-Sign Detail Recorded Client Recorded Date Recorded By Document 12/16/17 11:38 [id number] 12/16/17 11:44 JS Musculoskeletal: No Muscle Wasting [...] Recorded Date Recorded By Document 11/18/17 12:31 [id number] 11/18/17 12:32 Wound Center Nurse 2 Wound [...] Signed CNPN Observed: 12/08/2017 Status: COMPLETED Source: [place] 12:[address] 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 It may contain incorrect words, [...] your Primary Care Provider. Call [facility] ([phone]) or report to the closest Emergency Room. Call 911 if necessary. 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 Dyspnea on moderate exertion. Fidelina Peres APRN.HEALTH AND FITNESS PROFESSOR CTA CHEST W/WO Observed: 12/06/2017 Status: F Source: BRENDA CONTRAST 12:51 PM [facility] REPOSIT[facility] Imaging Services [address] [place] [address] CTA Chest W/WO Contrast MR#: [id number] Acct: [id number] Name: CARISSA YIP Rep #: [id number] : 1940 M 77 From: Liborio Bruno MD PCP: Lambert Larios MD Status: REG ER Study: CTA Chest W/WO Contrast Date of Exam: 12/06/17 Exam# [id number] Ordering Dr: Prasanth Meier DO STUDY: CTA [...] CC: Prasanth Meier DO; Lambert Larios MD Check Weigher: Signed CBC W/DIFF, AUTOMATED Collected: 12/06/2017 Status: F Source: BRENDA 12:22 PM [facility] REPOSITORY TYPE CODE TESTS RESULT OUT [...] Lymph 0.68 Performed By: #### L100.0100 #### [facility] [place], [address] BASIC METABOLIC Collected: 12/06/2017 Status: F Source: [facility] PROFILE (BMP) 12:22 PM [facility] REPOSITORY TYPE CODE TESTS RESULT OUT [...] 5 Performed By: #### L500.2500, L501.4010 #### [facility] [address], [address] TROPONIN-I Collected: 12/06/2017 Status: F Source: [facility]EN[place] 12:22 PM [facility] REPOSITORY TYPE CODE TESTS RESULT OUT OF RANGE REFERENCE UNITS LAB L501.4010 <0.045 ng/mL Normal < 0.015 TROPONIN-I Result Comment: TROPONIN-I EXPECTED VALUES <0.045 Negative 0.045 - 0.590 Consistent with Cardiac Damage > OR = 0.600 Critical Value Not every elevated troponin is indicative of WA. These values should be used with clinical judgement in examining the patient's clinical picture for diagnosis. To establish a diagnosis of WA versus myocardial injury, there must be a demonstrated rise and/or fall in the troponin values, in addition to ischemic symptoms, EKG changes, new regional wall motion abnormality, and/or angiographical evidence. PLEASE NOTE: REFERENCE RANGES EDITED 17 Performed By: #### L500.2500, L501.4010 #### [facility] [place], [address] CNOV Observed: 12/06/2017 Status: COMPLETED Source: [place] 10:[address] [facility] REPOSITORY Office Visit (UCWSTR) PHICARISSA Mabry ([id number]) 1940 M Date Time Provider Department 12/06/17 10:30 AM [facility] UCWSTR During your visit today, we recorded the following information about you: Temperature Pulse Blood pressure Weight 98.9 degrees 100/minute 124/70 92.5 kg Fidelina Peres APRN.HEALTH AND FITNESS PROFESSOR 12/06/2017 1:32 PM Signed HPI Carissa Mabry [...] Open Wound of Left Lower Extremity Prothrombin Q30371q Mutation (Hcc) Family History Problem Relation Age of Onset - Diabetes Father - Colon Cancer Father - Asthma Mother - Colon Cancer Sister - Diabetes Sister - Colon Cancer Other Social History Marital status: Spouse name: Lux Years of education: Number of children: 3 Occupational History 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 Dyspnea on moderate exertion. 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] INVALID FOR* Encounter Status:Closed by FIDELINA PERES CNP on 12/06/17 CBC AND DIFFERENTIAL Collected: 12/06/2017 Status: F Source: [place] 10:15 AM [facility] REPOSITORY TYPE [...] Low Abs Lymph 0.79 LAB AMONO % Dickson% 11.0 LAB AAMONO <0.87 k/uL Abs Dickson 0.67 LAB AEOS % Eosin% 3.3 LAB AAEOS <0.46 k/uL Abs Eosin 0.20 LAB ABASO % Baso% 0.2 LAB AABASO <0.11 k/uL Abs Baso <0.03 LAB AUNRBC 0 /100 WBC NRBCs 0.0 LAB ABNRBC <0.01 k/uL Absolute nRBC <0.01 LAB DTYP DTYPE Auto Diff Performed By: #### CBCDIF, CMP, CARDIO #### [facility] [address] [place], [place] [address] COMP METABOLIC PANEL Collected: 12/06/2017 Status: F Source: [place] 10:15 AM [facility] REPOSITORY TYPE CODE TESTS RESULT OUT OF REFERENCE UNITS RANGE LAB TP 6.3-8.0 g/dL Protein, Total 7.5 LAB ALB 3.9-4.9 g/dL Low Albumin 3.8 LAB CA 8.5-10.2 mg/dL Calcium, Total 9.2 LAB TBIL 0.2-1.3 mg/dL Bilirubin, Total 0.2 LAB ALKP 36-108 U/L Alkaline Phosphatase 80 LAB AST 14-40 U/L AST 31 LAB GLU 74-99 mg/dL Glucose High 109 Result Comment: The [place] Diabetes Association (ADA) provides guidance for cutoff [...] Standards of Medical Care in Diabetes 2016, [place] Diabetes Association. Diabetes Care. 2016.39(Suppl 1). LAB [...] Performed By: #### CBCDIF, CMP, CARDIO #### [facility] [address] [place], [place] [address] CARDIOLIPIN ANTIBODY Collected: 12/06/2017 Status: F Source: [place] 10:15 AM [facility] REPOSITORY TYPE CODE TESTS RESULT OUT OF REFERENCE UNITS RANGE LAB CARDG 0-9 GPL IgG Cardiolipin Ab. <9 Result Comment: <10 GPL Negative 10-40 GPL Equivocal >40 GPL Positive The following results were obtained with the Digital Luxury[employer] Lite CHELA IgG III ANH. Cardiolipin IgG [...] Performed By: #### CBCDIF, CMP, CARDIO #### [facility] [address] [place], [place] [id number] WOUND CTR HISTORY Observed: 12/02/2017 Status: F Source: [facility] AND PHYSICAL 11:15 AM [facility] REPOSITORY [facility] Wound Healing Center [address] [place] [address] Wound Ctr History AND Physical 12/02/17 1109 MR#: [id number] Acct: [id number] Name: CARISSA YIP Rep #: [id number] : 1940 77 From: Oz Cooper MD [...] associated with fever. He was hospitalized at [facility] for approximately 4 days. He was [...] Date Recorded By Document 12/02/17 10:22 DL [id number] 12/02/17 10:30 DL Wound Center Nurse 1 WC - Nurse 2 - General Ulcer CM Notes Start: 11/18/17 11:45 Freq: Status: Active Protocol: Activity Type Activity Date Activity User E-Sign Co-Sign Detail Recorded Client Recorded Date Recorded By Document 12/02/17 10:49 JS [id number] 12/02/17 10:58 JS Wound Center Nurse 2 [...] F Source: [facility] PHYSICAL 10:46 AM [facility] REPOSITORY [facility] Wound Healing Center [address] [place] [address] Wound Ctr History AND Physical 11/25/17 1040 MR#: [id number] Acct: [id number] Name: CARISSA YIP Rep #: [id number] : 1940 77 From: Oz Cooper MD [...] associated with fever. He was hospitalized at [facility] for approximately 4 days. He was [...] Recorded Date Recorded By Document 11/25/17 09:59 [id number] 11/25/17 10:02 [facility] Nurse 1 [Ulcer Assessment] #7 LATERAL LLE- POST OP 09/12/17 -Combined with other wound No -Current Size (cm) - Length 20.6 - Nurse 2 - General Ulcer CM Notes Start: 11/18/17 11:45 Freq: Status: Active Protocol: Activity Type Activity Date Activity User E-Sign Co-Sign Detail Recorded Client Recorded Date Recorded By Document 11/25/17 10:33 [id number] 11/25/17 10:34 Wound Center Nurse 2 Musculoskeletal: [...] Signed PROGRESS Observed: 11/18/2017 Status: COMPLETED Source: [place] 3:[address] [facility] REPOSITORY O ID: [id number] Author: Reg Verma Service: (none) Author Type: Physician Type: Progress Notes Filed: 11/18/2017 5:34 PM Note Text: PERTINENT CARDIAC HISTORY Pulmonary hypertension - multifactorial Chronic asthma HTN HL Pulmonary embolism 02/02 ILD ADHERENCE TO GUIDELINES ISAAK-I or ARB for HF with prior LVEF<40 (NQF 0081) - N/A ASA or Plavix for ASHD (NQF 0067) - N/A Beta birgit for ASHD with prior WA or prior LVEF<40 (NQF 0070) - N/A Beta birgit for HF with prior LVEF<40 (NQF 0083) - N/A ISAAK-I or ARB for ASHD with DM or prior LVEF<40 (NQF 0066) - N/A Statin therapy for ASHD or FHL or DM - N/A BMI documented and plan if >25 (NQ 0421) - lifestyle recommendation form Tobacco use screening and referral ([facility] 0028) - lifestyle recommendation form Recommendation for [...] Take 2 capsules once a day. 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 PHYSICAL EXAMINATION: VITAL SIGNS: BP 132/87 Pulse [...] MD CNOV Observed: 11/18/2017 Status: COMPLETED Source: [place] 3:[address] [facility] REPOSITORY Office Visit (CAWSTR) CARISSA YIP ([id number]) 1940 M Date Time Provider Department 11/18/17 3:00 PM REG [facility]AT[facility] During your visit today, we recorded the [...] N/A Beta birgit for ASHD with prior WA or prior LVEF<40 (NQF 0070) - N/A [...] Take 2 capsules once a day. 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 PHYSICAL EXAMINATION: VITAL SIGNS: BP 132/87 Pulse [...] the following areas and commit to making long-term changes. EAT A WHOLE FOOD, PLANT BASED [...] in your area. 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 Please give serious thought to the following areas and commit to making long-term changes. EAT A WHOLE FOOD, PLANT BASED [...] F Source: [facility] AND PHYSICAL 12:47 PM [facility] REPOSITORY [facility] Wound Healing Center [address] [place] [address] Wound Ctr History AND Physical 11/18/17 1241 MR#: [id number] Acct: [id number] Name: CARISSA YIP Rep #: [id number] : 1940 77 From: Oz Cooper MD PCP: Lambert Lariso MD Status: REG RCR Y Location: WC [...] associated with fever. He was hospitalized at [facility] for approximately 4 days. He was [...] Recorded Date Recorded By Document 11/18/17 11:45 [id number] 11/18/17 11:53 MAVIS - Nurse 2 - General Ulcer CM Notes Start: 11/18/17 11:45 Freq: Status: Active Protocol: Activity Type Activity Date Activity User E-Sign Co-Sign Detail Recorded Client Recorded Date Recorded By Document 11/18/17 12:31 JODI [id number] 11/18/17 12:32 JODI Wound Center Nurse 2 [...] Date Recorded By Document 11/18/17 12:31 JODI [id number] 11/18/17 12:32 JODI Wound Center Nurse 2 [...] URIC ACID Collected: 11/12/2017 Status: F Source: [place] 11:[address] [facility] REPOSITORY TYPE CODE TESTS RESULT OUT OF RANGE REFERENCE UNITS LAB URIC 4.0-8.1 mg/dL Uric Acid 8.1 Performed By: #### URIC #### [facility] [address] [place], [place] [address] PROGRESS Observed: 11/12/2017 Status: COMPLETED Source: [place] 11:[address] [facility] REPOSITORY HNO ID: [id number] Author: Glenna (Petros) Aaron Service: (none) Author Type: Nurse Practitioner Type: Progress Notes Filed: 11/12/2017 12:30 PM Note Text: 11/12/2017 Patient presents with: Transition Of Care: [facility] D/C 11/10/17 cellulitis SUBJECTIVE: This is a 77 year old that is here today for hospital discharge follow up. He was admitted to [facility] from 11/06/17- 11/10/17 for cellulitis. Patient [...] home with order to resume HC with [facility]. He was given a prescription for the [...] Rosacea 02/25/2007 - Skin cancer of face [facility]. - Unspecified asthma(493.90) ALLERGIES Indocin [Indomethacin [...] Take 2 capsules once a day. 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 No current facility-administered medications for this visit. Medications and allergies reviewed by this provider. 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 Removed SIAAK to see that dressing is clean dry [...] DIFF - COMP METABOLIC PANEL Glenna Walker APRN.HEALTH AND FITNESS PROFESSOR CNOV Observed: 11/12/2017 Status: COMPLETED Source: [place] 11:[address] [facility] REPOSITORY Office Visit (FAMPWS) PHICARISSA ([id number]) 1940 M Date Time Provider Department 11/12/17 [...] NASAL BID 07/13/13 Fluticasone 0.05% [Flonase Nasal Maxwell] 2 spray NASAL BID 07/13/13 Montelukast [Singulair] 10 mg PO QHS 07/13/13 Sertraline HCl [Zoloft] 150 mg PO DAILY 07/13/13 Tiotropium [place] [Spiriva 18 MCG] 1 puff INHALATION DAILY [...] TOPICAL BID PRN 06/22/17 Hydrocodone Bitart/Apap 5-325 [Munson 5/325] 1 tab PO Q4H PRN PRN #20 tab 09/16/17 Lactobacillus Acidophilus [Acidophilus] 2 tab PO TID #30 tab 09/16/17 Amoxicillin/Potassium Clav [Augmentin 875-125 Tablet] 1 ea PO BID 7 Days #14 tab 11/10/17 Following Prescrptions Were Given to Patient: Amoxicillin/Potassium Clav [Augmentin 875-125 Tablet] 1 ea PO BID 7 Days #14 tab Abhilash Walker, ZEE.HEALTH AND FITNESS PROFESSOR 11/12/2017 12:30 PM Signed 11/12/2017 Patient presents with: Transition Of Care: [facility] D/C 11/10/17 cellulitis SUBJECTIVE: This is a 77 year old that is here today for hospital discharge follow up. He was admitted to [facility] from 11/06/17- 11/10/17 for cellulitis. Patient [...] home with order to resume HC with [facility]. He was given a prescription for the [...] 02/25/2007 - Skin cancer of face [facility]. - Unspecified asthma(493.90) ALLERGIES Indocin [Indomethacin Sodium]; [...] Take 2 capsules once a day. 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 No current facility-administered medications for this visit. Medications and allergies reviewed by this provider. 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 REPOSITORY HNO ID: [id number] Author: Abhilash Matute Ma Service: (none) Author [...] NASAL BID 07/13/13 Fluticasone 0.05% [Flonase Nasal Maxwell] 2 spray NASAL BID 07/13/13 Montelukast [Singulair] 10 mg PO QHS 07/13/13 Sertraline HCl [Zoloft] 150 mg PO DAILY 07/13/13 Tiotropium Houston [Spiriva 18 MCG] 1 puff INHALATION DAILY [...] TOPICAL BID PRN 06/22/17 Hydrocodone Bitart/Apap 5-325 [Munson 5/325] 1 tab PO Q4H PRN PRN #20 tab 09/16/17 Lactobacillus Acidophilus [Acidophilus] 2 tab PO TID #30 tab 09/16/17 Amoxicillin/Potassium Clav [Augmentin 875-125 Tablet] 1 ea PO BID 7 Days #14 tab 11/10/17 Following Prescrptions Were Given to Patient: Amoxicillin/Potassium Clav [Augmentin 875-125 Tablet] 1 ea PO BID 7 Days #14 tab Abhilash Matute Ma PROGRESS Observed: 11/12/2017 Status: COMPLETED Source: [place] 9:[address] [facility] REPOSITORY O ID: [id number] Author: Simon Clemente Service: (none) Author Type: (none) Type: Progress Notes Filed: 12/04/2017 3:07 PM Note Text: TRANSITION CARE MANAGEMENT (TCM) INITIAL CONTACT Supervisor Seaming Outreach Provider Action/FYI: Since discharge patient c/o left great toe redness and pain. Unable to wgt bear. Initial contact with patient post discharge, spoke to patient. Patient identified by name and . SUMMARY: -Pt discharged from [facility] on 11/10/17. -Admitted for: left leg [...] NASAL BID 07/13/13 Fluticasone 0.05% [Flonase Nasal Maxwell] 2 spray NASAL BID 07/13/13 Montelukast [Singulair] 10 mg PO QHS 07/13/13 Sertraline HCl [Zoloft] 150 mg PO DAILY 07/13/13 Tiotropium [place] [Spiriva 18 MCG] 1 puff INHALATION DAILY [...] TOPICAL BID PRN 06/22/17 Hydrocodone Bitart/Apap 5-325 [Munson 5/325] 1 tab PO Q4H PRN PRN #20 tab 09/16/17 Lactobacillus Acidophilus [Acidophilus] 2 tab PO TID #30 tab 09/16/17 Amoxicillin/Potassium Clav [Augmentin 875-125 Tablet] 1 ea PO BID 7 Days #14 tab 11/10/17 Following Prescrptions Were Given to Patient: Amoxicillin/Potassium Clav [Augmentin 875-125 Tablet] 1 ea PO BID 7 Days #14 tab CNPTOUTREACH Observed: 11/12/2017 Status: COMPLETED Source: [place] 12:[address] [facility] REPOSITORY Patient Outreach (INTMWS) CARISSA YIP ([id number]) 1940 M Date Time Provider Department 11/12/17 LAMBERT LARIOS INTMWS During your visit today, we recorded the following information about you: Simon Chyna 12/04/2017 3:07 PM Signed TRANSITION CARE MANAGEMENT (TCM) INITIAL CONTACT Supervisor Seaming Outreach Provider Action/FYI: Since discharge patient c/o left great toe redness and pain. Unable to wgt bear. Initial contact with patient post discharge, spoke to patient. Patient identified by name and . SUMMARY: -Pt discharged from [facility] on 11/10/17. -Admitted for: left leg [...] NASAL BID 07/13/13 Fluticasone 0.05% [Flonase Nasal Maxwell] 2 spray NASAL BID 07/13/13 Montelukast [Singulair] 10 mg PO QHS 07/13/13 Sertraline HCl [Zoloft] 150 mg PO DAILY 07/13/13 Tiotropium [place] [Spiriva 18 MCG] 1 puff INHALATION DAILY [...] TOPICAL BID PRN 06/22/17 Hydrocodone Bitart/Apap 5-325 [Munson 5/325] 1 tab PO Q4H PRN PRN [...] left lower extremity [S81.802A] INVALID FOR* Prothrombin Q12387U mutation (HCC) [D68.52] INVALID FOR* Encounter Status:Closed by DOMINIQUE JIMENEZ LPN on 12/04/17 WOUND CTR HISTORY Observed: 11/11/2017 Status: F Source: [facility] AND PHYSICAL 12:39 PM [facility] REPOSITORY [facility] W[facility]aling [facility] [address] [place] [address] Wound Ctr History AND Physical 11/11/17 1232 MR#: [id number] Acct: [id number] Name: CARISSA YIP Rep #: [id number] : 1940 77 From: Oz Cooper MD [...] associated with fever. He was hospitalized at [facility] for approximately 4 days. He was [...] Date Recorded By Document 11/11/17 11:14 DL [id number] 11/11/17 11:18 DL Wound Center Nurse 1 [Ulcer Assessment] #7 LATERAL LLE- POST OP 09/12/17 WC - Nurse 2 - General Ulcer CM Notes Start: 10/31/17 10:07 Freq: Status: Active Protocol: Activity Type Activity Date Activity User E-Sign Co-Sign Detail Recorded Client Recorded Date Recorded By Document 11/11/17 12:19 CS [id number] 11/11/17 12:20 CS Wound Center Nurse 2 [...] DISCHARGE SUMMARY Observed: 11/10/2017 Status: F Source: [place] 3:57 PM [facility] REPOSITORY [facility] Medical Records Department [address] [place] [address] [place] [address] Discharge Summary 11/10/17 1545 MR#: [id number] Acct: [id number] Name: CARISSA YIP Rep #: [id number] : 1940 77 From: Violeta Wyman MD PCP: Lambert Larios MD Status: DIS IN Y Location: MS3 ND596-9 Discharge Date and Diagnosis Date of Admission: [...] Service support , Consultations 11/06/17 18:56 Consult: Onc/Wound/waste cotton cleaner Routine Comment: Dr. mckenna, infectious disease. Operations: [...] NASAL BID 07/13/13 Fluticasone 0.05% [Flonase Nasal Maxwell] 2 spray NASAL BID 07/13/13 Montelukast [Singulair] 10 mg PO QHS 07/13/13 Sertraline HCl [Zoloft] 150 mg PO DAILY 07/13/13 Tiotropium [place] [Spiriva 18 MCG] 1 puff INHALATION DAILY [...] TOPICAL BID PRN 06/22/17 Hydrocodone Bitart/Apap 5-325 [Munson 5/325] 1 tab PO Q4H PRN PRN [...] applicable Code Visit Inpatient E AND M: 36960 Disch Hosp 11/10/17 1557 <Electronically signed by Violeta Wyman MD> Date Violeta Wyman MD Cosigner Signature (if applicable): Date CC: Violeta Wyman; Christy Hinds MD; Lambert Larios MD Signed DISCHARGE INSTRUCTION Observed: 11/10/2017 Status: F Source: [place] 1:34 PM [facility] REPOSITORY [facility] Medical Records Department [address] [place] [address] Instructions for Home/Discharge Instructions 11/10/17 1332 MR#: [id number] Acct: [id number] Name: CARISSA YIP Rep #: [id number] : 1940 77 From: Violeta Wyman MD [...] NASAL BID 07/13/13 Fluticasone 0.05% [Flonase Nasal Maxwell] 2 spray NASAL BID 07/13/13 Montelukast [Singulair] 10 mg PO QHS 07/13/13 Sertraline HCl [Zoloft] 150 mg PO DAILY 07/13/13 Tiotropium [place] [Spiriva 18 MCG] 1 puff INHALATION DAILY [...] TOPICAL BID PRN 06/22/17 Hydrocodone Bitart/Apap 5-325 [Munson 5/325] 1 tab PO Q4H PRN PRN [...] MD When: Please call his office. 11/10/17 0122 <Electronically signed by Violeta Wyman MD> Date Violeta Wyman MD CC: Chet Mckenna MD; Lambert Larios MD 12 LEAD ELECTROCARDIOGRAM Observed: 11/10/2017 Status: F Source: [place] 10:15 AM [facility] REPOSITORY [facility] Cardiovascular Services [address] [place] [address] 12 Lead EKG 11/06/17 1635 MR#: [id number] Acct: [id number] Name: CARISSA YIP Rep #: [id number] : 1940 77 From: Prasanth Cruz MD [...] Otherwise normal ECG Confirmed by PRASANTH CRUZ ([id number]), greeting card editor CHERELLE VILLASEÑOR ([id number]) on 11/10/2017 10:14:56 AM Referred By: PAULINO Confirmed By:PRASANTH CRUZ 11/10/17 1014 Date Prasanth Cruz MD CC: Violeta Wyman; Boogie Rodriguez; Lambert Larios MD Signed BASIC METABOLIC Collected: 11/10/2017 Status: F Source: [place] PROFILE (BMP) 5:38 AM [facility] REPOSITORY TYPE CODE TESTS RESULT OUT [...] GAP 10 Performed By: #### L500.2500 #### [facility] [address] [place], [place], [address] CBC-COMPLETE BLOOD CNT Collected: 11/10/2017 Status: F Source: [place] NO DIFF 5:38 AM [facility] REPOSITORY TYPE CODE TESTS RESULT OUT [...] MPV 9.9 Performed By: #### L100.0500 #### [facility] [address] [place], [address] BEDSIDE GLUCOSE Collected: 11/09/2017 Status: F Source: [place] 6:52 AM [facility] REPOSITORY TYPE CODE TESTS RESULT OUT OF REFERENCE UNITS RANGE LAB L501.080 70-110 mg/dL High BEDSIDE GLU 113 Result Comment: MANAGEMENT OF PATIENT CARE PER NURSING PROTOCOL Performed By: #### L501.080 #### [facility] Point of Care [address] [place], [place] [address] BASIC METABOLIC Collected: 11/09/2017 Status: F Source: [place] PROFILE (BMP) 5:11 AM [facility] REPOSITORY TYPE CODE TESTS RESULT OUT [...] GAP 9 Performed By: #### L500.2500 #### [facility] [address] [place], [address] CBC W/DIFF, AUTOMATED Collected: 11/09/2017 Status: F Source: [place] 5:11 AM [facility] REPOSITORY TYPE CODE TESTS RESULT OUT [...] Lymph 0.91 Performed By: #### L100.0100 #### [facility] [address] [place], [place], [address] BEDSIDE GLUCOSE Collected: 11/08/2017 Status: F Source: [place] 10:38 PM [facility] REPOSITORY TYPE CODE TESTS RESULT OUT OF REFERENCE UNITS RANGE LAB L501.080 70-110 mg/dL High BEDSIDE GLU 155 Result Comment: MANAGEMENT OF PATIENT CARE PER NURSING PROTOCOL Performed By: #### L501.080 #### [facility] Point of Care [address] [facility]. [place], [place] [address] BEDSIDE GLUCOSE Collected: 11/08/2017 Status: F Source: [place] 5:26 PM [facility] REPOSITORY TYPE CODE TESTS RESULT OUT OF REFERENCE UNITS RANGE LAB L501.080 70-110 mg/dL High BEDSIDE GLU 170 Result Comment: MANAGEMENT OF PATIENT CARE PER NURSING PROTOCOL Performed By: #### L501.080 #### [facility] Point of Care [address] [facility] [place] [address] BEDSIDE GLUCOSE Collected: 11/08/2017 Status: F Source: [place] 11:18 AM [facility] REPOSITORY TYPE CODE TESTS RESULT OUT OF REFERENCE UNITS RANGE LAB L501.080 70-110 mg/dL High BEDSIDE GLU 135 Result Comment: MANAGEMENT OF PATIENT CARE PER NURSING PROTOCOL Performed By: #### L501.080 #### [facility] Point of Care [address] [place], [place] [address] CBC W/DIFF, AUTOMATED Collected: 11/08/2017 Status: F Source: [place] 6:20 AM [facility] REPOSITORY TYPE CODE TESTS RESULT OUT [...] Lymph 0.79 Performed By: #### L100.0100 #### [facility] [address], [address] BASIC METABOLIC Collected: 11/08/2017 Status: F Source: [place] PROFILE (BMP) 6:20 AM [facility] REPOSITORY TYPE CODE TESTS RESULT OUT [...] GAP 7 Performed By: #### L500.2500 #### [facility] [address] [place], [place], [address] BEDSIDE GLUCOSE Collected: 11/07/2017 Status: F Source: [place] 10:47 PM [facility] REPOSITORY TYPE CODE TESTS RESULT OUT OF REFERENCE UNITS RANGE LAB L501.080 70-110 mg/dL High BEDSIDE GLU 122 Result Comment: MANAGEMENT OF PATIENT CARE PER NURSING PROTOCOL Performed By: #### L501.080 #### [facility] Point of Care [address] [place], [place] [address] BEDSIDE GLUCOSE Collected: 11/07/2017 Status: F Source: [place] 6:03 PM [facility] REPOSITORY TYPE CODE TESTS RESULT OUT OF REFERENCE UNITS RANGE LAB L501.080 70-110 mg/dL High BEDSIDE GLU 170 Result Comment: MANAGEMENT OF PATIENT CARE PER NURSING PROTOCOL Performed By: #### L501.080 #### [facility] Point of Care [address] [place] [address] VENOUS DUPLEX LOWER Observed: 11/07/2017 Status: F Source: [place] EXTREMITY 2:20 PM [facility] REPOSITORY [facility] Cardiovascular Services [address] [place] [address] Venous Duplex US - Garett Extrem 11/07/17922 MR#: [id number] Acct: [id number] Name: CARISSA YIP Rep #: [id number] : 1940 77 From: Oz Cooper MD [...] MD Date Dictated: 11/07/17922 Date Transcribed: 11/07/171418 Check Weigher: Signed CONSULTATION Observed: 11/07/2017 Status: F Source: [place] 2:19 PM [facility] REPOSITORY [facility] Medical Records Department [address] [place] [address] Consultation 11/07/17 1413 MR#: [id number] Acct: [id number] Name: CARISSA YIP Rep #: [id number] : 1940 77 From: Chet Mckenna MD PCP: Lambert Larios MD Status: ADM IN Y [id number] Problem List (1) Cellulitis of left leg [...] 11/07/2017 Status: F Source: [place] 11:29 AM [facility] REPOSITORY TYPE CODE TESTS RESULT OUT OF REFERENCE UNITS RANGE LAB L501.080 70-110 mg/dL High BEDSIDE GLU 115 Result Comment: MANAGEMENT OF PATIENT CARE PER NURSING PROTOCOL Performed By: #### L501.080 #### [facility] Point of Care [facility] [place] [address] Observed: 11/07/2017 Status: F Source: [place] CULTURE, WOUND 8:30 AM [facility] REPOSITORY Comments: left leg Gram Stain Gram [...] 0.5 S (NF) indicates non-formulary drug at [facility]. Approval by Infectious Disease Specialist required before non-formulary drugs may be ordered and/or dispensed. * CLSI guidelines does not recommend testing of cephalosporins. This interpretation is deduced from Beta-lactam/penicillin results. Performed By: #### M100.1400 #### [facility] [address] [place], [address] CBC W/DIFF, AUTOMATED Collected: 11/07/2017 Status: F Source: [place] 6:31 AM [facility] REPOSITORY TYPE CODE TESTS RESULT OUT [...] Lymph 0.54 Performed By: #### L100.0100 #### [facility] [address] [place], [place], [address] BASIC METABOLIC Collected: 11/07/2017 Status: F Source: [place] PROFILE ([facility]) 6:31 AM [facility] REPOSITORY TYPE CODE TESTS RESULT OUT [...] GAP 7 Performed By: #### L500.2500 #### [facility] [address] [place], [place], [address] BEDSIDE GLUCOSE Collected: 11/07/2017 Status: F Source: [place] 6:25 AM [facility] REPOSITORY TYPE CODE TESTS RESULT OUT OF REFERENCE UNITS RANGE LAB L501.080 70-110 mg/dL High BEDSIDE GLU 126 Result Comment: MANAGEMENT OF PATIENT CARE PER NURSING PROTOCOL Performed By: #### L501.080 #### [facility] Point of Care [address] [facility] [place] [address] MRSA WOUND DNA BY Collected: 11/06/2017 Status: F Source: [place] PCR 11:05 PM [facility] REPOSITORY Order Comment: Specimen Source? LEFT LEG WOUND TYPE CODE TESTS RESULT OUT OF RANGE REFERENCE UNITS LAB L8200.1100 Negative Normal MRSA Negative RESULT LAB L8200.1150 Negative Normal SA RESULT NEGATIVE Performed By: #### L8200.1075 #### [facility] [address] [place] [address], [address] BEDSIDE GLUCOSE Collected: 11/06/2017 Status: F Source: [place] 10:30 PM [facility] REPOSITORY TYPE CODE TESTS RESULT OUT OF REFERENCE UNITS RANGE LAB L501.080 70-110 mg/dL High BEDSIDE GLU 113 Result Comment: MANAGEMENT OF PATIENT CARE PER NURSING PROTOCOL Performed By: #### L501.080 #### [facility] Point of Care [address] [place] [address] HISTORY AND PHYSICAL Observed: 11/06/2017 Status: F Source: [place] EXAM 8:20 PM [facility] REPOSITORY [facility] Medical Records Department [address] [place] [address] History and Physical 11/06/171956 MR#: [id number] Acct: [id number] Name: CARISSA YIP Rep #: [id number] : 1940 77 From: Jose Marc MD PCP: Lambert Larios MD Status: ADM IN Location: IA3 UC463-6 Problem List (1) Cellulitis of left leg [...] stable. Code Visit Inpatient E AND M: 90628 Init Hosp L3 11/06/172019 <Electronically signed by Jose Marc MD> Date Jose Marc MD Cosign Signature: Date (if applicable) CC: Lambert Larios MD; Jose Marc M.D. Signed EMERGENCY DEPARTMENT Observed: 11/06/2017 Status: F Source: [place] SUMMARY 5:17 PM [facility] REPOSITORY [facility] Medical Records Department [address] [place] [address] Emergency Department Summary 11/06/17 1544 MR#: [id number] Acct: [id number] Name: CARISSA YIP Rep #: [id number] : 1940 77 From: Boogie Weeks PCP: [...] 2. Fever This note was generated with Conturation software. It may contain incorrect words, spelling, and punctuation that were not noted in review of the chart prior to signing ED Disposition - Plan for ED Patient: Disposition: Acute Care Hospital [facility] Chief Complaint: Wound Diagnosis: Left leg cellulitis, Fever Referrals: Lambert Larios MD [Primary Care Provider] - What to do if you have Problems For any increased pain, shortness of breath, bleeding, nausea or vomiting, chest pain, or any unexpected problems, contact your Primary Care Provider. Call [facility] ([phone]) or report to the closest Emergency Room. Call 911 if necessary. 11/06/17 1338 <Electronically signed by Boogie Weeks> Date Boogie Weeks Cosigner Signature (If Indicated): Date CC: Lambert Larios MD Observed: 11/06/2017 Status: F Source: [place] CULTURE, BLOOD (WB) 4:25 PM [facility] REPOSITORY BC No growth in 5 days. Performed By: #### M200.1000 #### [facility] [place], [address] CBC W/DIFF, AUTOMATED Collected: 11/06/2017 Status: F Source: [place] 4:05 PM [facility] REPOSITORY TYPE CODE TESTS RESULT OUT [...] Lymph 0.66 Performed By: #### L100.0100 #### [facility] [address] [place], [place], [address] PROTHROMBIN TIME W/INR Collected: 11/06/2017 Status: F Source: [place] 4:05 PM [facility] REPOSITORY TYPE CODE TESTS RESULT OUT OF RANGE REFERENCE UNITS LAB L300.4150 11.7-14.9 SECONDS Normal PROTIME 13.8 LAB L300.4200 Normal INR 1.1 Performed By: #### L300.3900, L300.4310 #### [facility] [address] [place], [address] PARTIAL THROMBOPLAST Collected: 11/06/2017 Status: F Source: [place] TIME 4:05 PM [facility] REPOSITORY TYPE CODE TESTS RESULT OUT OF RANGE REFERENCE UNITS LAB L300.4310 24.1-36.2 Seconds Normal PTT 32.6 Performed By: #### L300.3900, L300.4310 #### [facility] [address] [place], [address] COMPREHENSIVE METABOLIC Collected: 11/06/2017 Status: F Source: [place] PROFIL 4:05 PM [facility] REPOSITORY TYPE CODE TESTS RESULT OUT [...] GAP 7 Performed By: #### L500.4050 #### [facility] [place], [address] LACTIC ACID Collected: 11/06/2017 Status: F Source: [place] 4:05 PM [facility] REPOSITORY Order Comment: Yes/No query for Sepsis Lactate Rule Y TYPE CODE TESTS RESULT OUT OF RANGE REFERENCE UNITS LAB L503.6005 0.4-2.0 mmol/L Normal LACTIC ACID 1.5 Performed By: #### L503.6005 #### [facility] [address] [place], [address] Observed: 11/06/2017 Status: F Source: [place] CULTURE, BLOOD (WB) 4:05 PM [facility] REPOSITORY BC No growth in 5 days. Performed By: #### M200.1000 #### [facility] [address] [place], [place], [address] CHEST PA AND LATERAL Observed: 11/06/2017 Status: F Source: [place] 3:43 PM [facility] REPOSITORY [facility] Imaging Services [address] [place] [address] Chest PA and Lateral MR#: [id number] Acct: [id number] Name: CARISSA YIP Rep #: [id number] : 1940 M 77 From: Chapo Samuel MD PCP: Lambert Larios MD Status: REG ER Study: Chest PA and Lateral Date of Exam: 11/06/17 Exam# [id number] Ordering Dr: Boogie Rodriguez DO STUDY: X-RAY [...] , CC: Boogie Rodriguez; Lambert Larios MD Check Weigher: Signed PROGRESS Observed: 11/06/2017 Status: COMPLETED Source: [place] 2:33 PM [facility] REPOSITORY O ID: [id number] Author: Elena (Audit Associate) Older Service: (none) Author Type: Nurse Practitioner [...] VAC to left lower leg managed by [facility] wound center and home health. Patient [...] 02/25/2007 - Skin cancer of face [facility]. - Unspecified asthma(493.90) PAST SURGICAL HISTORY Procedure Laterality Date - APPENDECTOMY 11-02-14 - COLONOS W/REM POLYP SNARE 07/25/05 - COLONOS W/REM POLYP SNARE 01/17/11 - COLONOSCOP W/ OR W/O [facility] SPEC 07/28/14 Colonoscopy - COLONOSCOP W/ OR W/O [facility] SPEC 12-20-15 - COLONOSCOPY - DIAGNOSTIC [...] Take 2 capsules once a day. 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 EPINEPHrine (EPIPEN) 0.3 mg/0.3 mL auto-injector Inject [...] for cellulitis with possible sepsis TC to [facility] wound center, spoke with clinical nurse express manager. Read through Dr. Cooper's notes from appointment and was also in the room during appointment, no signs of infection. - UA DIP B/O negative for infection Discussed with patient and , advised further evaluation in ER; may need IV antibiotic therapy. They are agreeable and will go to [facility] ER now. 2. Malaise and fatigue [...] APRN.CNP CNOV Observed: 11/06/2017 Status: COMPLETED Source: [place] 2:[address] [facility] REPOSITORY Office Visit (INTMWS) ALANCARISSA GIRALDO ([id number]) 1940 M Date Time Provider Department 11/06/17 [...] VAC to left lower leg managed by [facility] wound center and home health. Patient [...] Rosacea 02/25/2007 - Skin cancer of face [facility]. - Unspecified asthma(493.90) PAST SURGICAL HISTORY [...] Take 2 capsules once a day. 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 EPINEPHrine (EPIPEN) 0.3 mg/0.3 mL auto-injector Inject [...] for cellulitis with possible sepsis TC to [facility] wound center, spoke with clinical nurse express manager. Read through Dr. Cooper's notes from appointment and was also in the room during appointment, no signs of infection. - UA DIP B/O negative for infection Discussed with patient and , advised further evaluation in ER; may need IV antibiotic therapy. They are agreeable and will go to [facility] ER now. 2. Malaise and fatigue - ICD9: 780.79, ICD10: R53.81, R53.83 As above 3. Localized swelling of lower leg - ICD9: 729.81, ICD10: R22.40 Cellulitis vs DVT Plan as above 4. Localized erythema - ICD9: 695.9, ICD10: L53.9 As above 5. Wound of left lower extremity, subsequent encounter - ICD9: V58.89, 894.0, ICD10: S81.802D As above Elena Monterroso APRN.HEALTH AND FITNESS PROFESSOR Referring Provider: SELF [200] Allergies As of Date: 11/06/2017 Noted Allergy Reaction INDOCIN (INDOMETHACIN SODIUM) 04/01/2011 14 - Other: See Comments Comments: Wheezing, can take naprosyn PERCOCET (OXYCODONE-ACETAMINOPHEN)01/08/2005 9 - Itching SEASONAL ALLERGIES 11/12/2012 14 - Other: See Comments Comments: Cat, Goats, Dust mites, molds, trees, grasses, weed, ragweed Date Reviewed: 11/06/2017 Reviewed by: Kait Velazquez Back Joiner - Fully Assessed Reason for Visit: Fever [47] Primary Visit Diagnosis:Fever, unspecified fever cause [R50.9] Other Visit Diagnoses:Malaise and fatigue [R53.81, R53.83] Localized swelling of lower leg [R22.40] Localized erythema [L53.9] Wound of left lower extremity, subsequent encounter [S81.802D] Order(s):UA DIP B/O [7415417] Order #: [id number] Prescriptions as of 11/06/2017 Sig: FLUTICASONE 50 [...] left lower extremity [S81.802A] INVALID FOR* Prothrombin 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 CLINIC NO: [id number]. ATTENDING PHYSICIAN: Daniel Montalvo MD. 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 He had 2 equivocal anticardiolipin antibody [...] Take 2 capsules once a day. 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 albuterol HFA (PROVENTIL HFA) 90 mcg/actuation inhaler [...] Rosacea 02/25/2007 - Skin cancer of face [facility]. - Unspecified asthma(493.90) . 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 Clinically, his pulmonary embolism has resolved [...] with more than 50% of the total gvfy-zy-nlwo time of the visit in counseling / coordination of care. The patient and family were allowed enough time to ask questions. All questions were answered to their satisfaction. Patient and family verbalized understanding of treatment plan and agreed to follow-up with PCP Daniel Montalvo MD. ELECTRONICALLY SIGNED Cc: Dr. Lambert Jones CNOVSP Observed: 11/05/2017 Status: COMPLETED Source: [place] 9:10 AM [facility] REPOSITORY Visit (SP) Office (HOLLIE) CARISSA YIP ([id number]) 1940 M Date Time Provider Department 11/05/17 [...] Oncology PATIENT NAME: Carissa Yip. CLINIC NO: [id number]. ATTENDING PHYSICIAN: Daniel Montalvo MD. DATE OF [...] showed a carrier for the prothrombin gene H20106M mutation. He had 2 equivocal anticardiolipin antibody [...] Take 2 capsules once a day. 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 albuterol HFA (PROVENTIL HFA) 90 mcg/actuation inhaler [...] Diabetes mellitus type 2, controlled, without complications ([facility]) 08/25/2017 - Diverticulosis of colon (without mention [...] Rosacea 02/25/2007 - Skin cancer of face [facility]. - Unspecified asthma(493.90) . 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 Clinically, his pulmonary embolism has resolved [...] with more than 50% of the total xmfd-mq-yjxv time of the visit in counseling / coordination of care. The patient and family were allowed enough time to ask questions. All questions were answered to their satisfaction. Patient and family verbalized understanding of treatment plan and agreed to follow-up with PCP Daniel Montalvo MD. ELECTRONICALLY SIGNED Cc: Dr. Lambert Jones Referring Provider: LENI MCBRIDE [[id number]] Allergies As of Date: 11/05/2017 Noted Allergy [...] without acute cor pulmonale (HCC) [I26.99] Prothrombin N11539S mutation (HCC) [D68.52] Order(s):ANTI-CARDIOLIPIN AB [SQCARDIO] Order #: [id number] FUTURE Level of Service: NEW PATIENT VISIT LEVEL 4 [[id number]] Disposition: Return if symptoms worsen or fail [...] left lower extremity [S81.802A] INVALID FOR* Prothrombin T05349U mutation (HCC) [D68.52] INVALID FOR* Other instructions [...] F Source: BRENDA AND PHYSICAL 11:38 AM [facility] REPOSITORY [facility] W[facility] [address] [place] [address] Wound Ctr History AND Physical 11/04/17 1126 MR#: [id number] Acct: [id number] Name: CARISSA YIP Rep #: [id number] : 1940 77 From: Oz Cooper MD [...] patient has a bandage on his left presybeterian from recent Mohs surgery. Oral: Moist Mucosa [...] Recorded Date Recorded By Document 11/04/17 10:39 [facility] [id number] 11/04/17 10:51 [facility] W[facility] Nurse 1 [Ulcer Assessment] #7 [...] Date Recorded By Document 10/31/17 10:55 DV [id number] 10/31/17 10:56 DV Wound Center Nurse 2 [...] CARDIOLIPIN ANTIBODY Collected: 10/29/2017 Status: F Source: [place] 10:[address] [facility] REPOSITORY TYPE CODE TESTS RESULT OUT [...] titer. Performed By: #### CARDIO, FVIIIC #### [facility] [address] [place], [place] [address] FACTOR VIII:C ASSAY Collected: 10/29/2017 Status: F Source: [place] 10:[address] [facility] REPOSITORY TYPE CODE TESTS RESULT OUT OF REFERENCE UNITS RANGE LAB FVIIIC 50-173 % Factor 145 VIII:C Assay Performed By: #### CARDIO, FVIIIC #### [facility] [address] [place], [place] [address] WOUND CTR HISTORY Observed: 10/10/2017 Status: F Source: BRENDA AND PHYSICAL 8:25 AM [facility] REPOSITORY [facility] W[facility] [address] [place] [address] Wound Ctr History AND Physical 10/06/17 1018 MR#: [id number] Acct: [id number] Name: CARISSA YIP Rep #: [id number] : 1940 77 From: Samina STARK PCP: [...] Date Recorded By Document 10/03/17 14:25 JODI [id number] 10/03/17 14:43 J[facility]I Wound Center Nurse 1 [Ulcer Assessment] #7 LATERAL LLE- POST OP 09/12/17 -Combined with other wound No WC - Nurse 2 - General Ulcer CM Notes Start: 09/26/17 13:39 Freq: Status: Active Protocol: Activity Type Activity Date Activity User E-Sign Co-Sign Detail Recorded Client Recorded Date Recorded By Document 10/03/17 15:30 JODI [id number] 10/03/17 15:33 JODI Wound Center Nurse 2 [...] Signed PROGRESS Observed: 10/08/2017 Status: COMPLETED Source: [place] 10:[address] [facility] REPOSITORY HNO ID: [id number] Author: Heather Lozano Service: (none) Author Type: [...] DIAGNOSTIC CT PERFORMED: No IV SITE: Ambulatory: CT only - direct IV injection in the Right antecubital site POST EXAM PIV STATUS: Discontinued PROCEDURE TYPE: NM INJECT: Lung Quantification Perfusion. 5.7 mCi Tc99m MAA. No other medications given.. ADMINISTRATION TIME: 09:55 PATIENT DISCHARGED TO: Ambulatory patient, left CT department area. A Diagnostic radioactive procedure has taken place, with no further precautions necessary other than routine body substance precautions. More information regarding radiation safety can be found using this link: [email or web address] SIGNATURE: Heather Lozano PATIENT NAME: Carissa Yip DATE: October 08, 2017 TIME: 10:44 AM PAGER/CONTACT #: DEMETRIS LUNG QUANT Observed: 10/08/2017 Status: F Source: SOL PERFUSION 10:[address] [facility] REPOSITORY * * *Final Report* * * [...] defect persists superior segment right lower lobe Check Weigher: PSCB Transcribe Date/Time: Oct 08 2017 12:34P Dictated by : WILEY BLANCAS MD This examination was interpreted and the report reviewed and electronically signed by: WILEY BLANCAS MD on Oct 08 2017 12:45PM EST [id number] Observed: 10/03/2017 Status: F Source: [facility] CULTURE, DEEP WOUND 3:15 PM [facility] REPOS[facility] Comments: INFECTED WOUND Gram [...] <=0.5 S (NF) indicates non-formulary drug at [facility]. Approval by Infectious Disease Specialist [...] 1 S (NF) indicates non-formulary drug at [facility]. Approval by Infectious Disease Specialist required before non-formulary drugs may be ordered and/or dispensed. * CLSI guidelines does not recommend testing of cephalosporins. This interpretation is deduced from Beta-lactam/penicillin results. Cult, Anaerobic No anaerobic bacteria isolated. Performed By: #### M100.1500 #### [facility] [address] [place], [address] WOUND CTR HISTORY Observed: 2017 Status: F Source: [facility]ENDA AND PHYSICAL 3:36 PM [facility] RE[facility]ITORY [facility] Wound [facility]aling Center [address] [place] [address] Wound Ctr History AND Physical 09/26/17 1517 MR#: [id number] Acct: [id number] Name: CARISSA YIP Rep #: [id number] : 1940 77 From: Oz Cooper MD [...] Date Recorded By Document 09/26/17 13:46 DV [id number] 09/26/17 14:27 DV Wound Center Nurse 1 [...] Recorded Date Recorded By Document 09/26/17 14:48 [id number] 09/26/17 14:59 Wound Center Nurse 2 [Procedure/Treatment] [...] Recorded Date Recorded By Document 09/26/17 14:48 [id number] 09/26/17 14:59 Wound Center Nurse 2 #7 [...] Signed PNP Collected: 09/25/2017 Status: F Source: [place] [address] [place] [address] REPOSITORY TYPE CODE TESTS RESULT OUT OF REFERENCE UNITS RANGE LAB PLTNEU Negative PNP Negative Performed By: #### PLTNEU, TT, DRVVT, PTTI, FXIIC, FXIC, FIXC, HYPER #### [place] [address] THROMBIN TIME Collected: 09/25/2017 Status: F Source: [place] [address] REPOSITORY TYPE CODE TESTS RESULT OUT OF REFERENCE UNITS RANGE LAB TT <18.6 sec Thrombin Time 17.5 Performed By: #### PLTNEU, TT, DRVVT, PTTI, FXIIC, FXIC, FIXC, HYPER #### [place] [address] DILUTE RVVT Collected: 09/25/2017 Status: F Source: [place] [address] [place] [address] REPOSITORY TYPE CODE TESTS RESULT OUT OF REFERENCE UNITS RANGE LAB DRVSCN 32.7-46.7 sec High DRVVT Screen 50.1 LAB DRVRAT <1.21 DRVVT Confirm 1.17 Ratio LAB DRVMIX 32.7-46.7 sec DRVVT 1:1 Mix 44.3 Performed By: #### PLTNEU, TT, DRVVT, PTTI, FXIIC, FXIC, FIXC, HYPER #### [place] [id number] PTT INCUB ADD ON Collected: 09/25/2017 Status: F Source: [place] [address] [place] [address] REPOSITORY TYPE CODE TESTS RESULT OUT OF REFERENCE UNITS RANGE LAB APTTSC 24.4-33.4 sec High APTT 33.8 Screen LAB IMPTT <33.2 sec Immed. 30.6 PTT 1:1 Mix LAB 1HRPTT <35.0 sec Incub. 33.0 PTT 1:1 Mix Performed By: #### PLTNEU, TT, DRVVT, PTTI, FXIIC, FXIC, FIXC, HYPER #### [place] [address] FACTOR XII:C ASSAY Collected: 09/25/2017 Status: F Source: [place] 12:41 [facility] REPOSITORY TYPE CODE TESTS RESULT OUT OF REFERENCE UNITS RANGE LAB FXIIC 69-192 % Factor XII:C 132 Assay Performed By: #### PLTNEU, TT, DRVVT, PTTI, FXIIC, FXIC, FIXC, HYPER #### [place] [id number] FACTOR XI:C ASSAY Collected: 09/25/2017 Status: F Source: [place] 12:41 [facility] REPOSITORY TYPE CODE TESTS RESULT OUT OF REFERENCE UNITS RANGE LAB FXIC 68-175 % Factor XI:C 118 Assay Performed By: #### PLTNEU, TT, DRVVT, PTTI, FXIIC, FXIC, FIXC, HYPER #### [place] [address] FACTOR IX:C ASSAY Collected: 09/25/2017 Status: F Source: [place] 12:[address] [place] [address] REPOSITORY TYPE CODE TESTS RESULT OUT OF REFERENCE UNITS RANGE LAB FIXC 77-173 % Factor IX:C 140 Assay Performed By: #### PLTNEU, TT, DRVVT, PTTI, FXIIC, FXIC, FIXC, HYPER #### [place] [address] HYPERCOAG DIAG PNL Collected: 09/25/2017 Status: F Source: [place] 12:41 [facility] REPOSITORY TYPE CODE TESTS RESULT OUT [...] FINDINGS: 1. Acute phase response. 2. 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 A laboratory evaluation for congenital [...] unlikely. 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 This is [...] with VKA drugs, such as warfarin, the [place] [employer] 2012 Guideline recommends [...] Chest 2012, 141:7S-47S Anaya CARTER et al. [facility] 2017, 70: 252-289 LAB APTT 23.0-32.4 sec [...] laboratory APTT reagent in use throughout the [facility]. LAB FIBCT 200-400 mg/dL Fibrinogen High 585 Result Comment: Result rechecked. Sample checked for a clot. LAB CRP <0.9 mg/dL C-Reactive 0.3 Protein LAB PTMUT PT Gene Mut Heterozygous Result LAB PTINT PT Gene The DNA sample Report contains one copy of the prothrombin gene Q57307F point mutation in the 3' untranslated region (heterozygous mutation). This mutation is associated with an approx. 3 fold increased risk of venous thrombosis in heterozygotes. This risk may relate to an elevation in prothrombin levels. Result Comment: The I01449J mutation acts synergistically with the Factor V Leiden S9118I mutation and other congenital deficiencies (such as [...] Reviewed by Gene Review Brown Ball MD ([id number]) Performed By: #### PLTNEU, TT, DRVVT, PTTI, FXIIC, FXIC, FIXC, HYPER #### [facility] [address] [place] [address] PROGRESS Observed: 09/25/2017 Status: COMPLETED Source: [place] 11:[address] [facility] REPOSITORY HNO ID: [id number] Author: Lambert Larios Service: (none) Author Type: [...] for pt to see pcp or his END FINDER TWISTING DEPARTMENT. Please verify follow ups arranged with specialists and HHS arranged? Verify meds too.TRANSITION CARE MANAGEMENT (TCM) INITIAL CONTACT Supervisor [facility] ? Provider Action/FYI: Message left for pt to return clal to a nurse Called pt again and all reviewed ? Initial contact with patient post discharge, spoke to patient. Patient identified by name and . ? SUMMARY: -Pt discharged from [facility] on 09/16/17. -Admitted for: Cellulitis Spoke [...] and supplies at home? Yes Pt says [facility] is coming today to change wound dressing and [facility] is coming today to review his [...] Take 2 capsules once a day. 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 No current facility-administered medications for this visit. [...] MD CNOV Observed: 09/25/2017 Status: COMPLETED Source: [place] 11:[address] [facility] REPOSITORY Office Visit (INTMWS) PHICARISSA ([id number]) 1940 M Date Time Provider Department 09/25/17 [...] for pt to see pcp or his END FINDER TWISTING DEPARTMENT. Please verify follow ups arranged with specialists and HHS arranged? Verify meds too.TRANSITION CARE MANAGEMENT (TCM) INITIAL CONTACT Supervisor [facility] ? Provider Action/FYI: Message left for pt to return clal to a nurse Called pt again and all reviewed ? Initial contact with patient post discharge, spoke to patient. Patient identified by name and . ? SUMMARY: -Pt discharged from [facility] on 09/16/17. -Admitted for: Cellulitis Spoke [...] and supplies at home? Yes Pt says [facility] is coming today to change wound dressing and [facility] is coming today to review his [...] Take 2 capsules once a day. 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 No current facility-administered medications for this visit. [...] (BLOOD WORK) TODAY. Referring Provider: LAMBERT LARIOS [[id number]] Allergies As of Date: 09/25/2017 Noted Allergy [...] Order(s):US LEG VEIN DVT UNL VAS LAB [5972047-[id number]] Order #: [id number] FUTURE furosemide (LASIX) 40 mg tabletTake 1 [...] 09/25/2017 11:28 AM >> SUDHA KILGORE LPN [facility] September 25, 2017 11:28 AM Course completed [...] LEAD ELECTROCARDIOGRAM Observed: 09/22/2017 Status: F Source: [place] 2:41 PM [facility] REPOSITORY [facility] Cardiovascular Services [address] [place] [address] 12 Lead EKG 09/12/17 0523 MR#: [id number] Acct: [id number] Name: CARISSA YIP Rep #: [id number] : 1940 76 From: Ke Garcia MD Attending Dr: Chapis Minor MD Status: DIS IN Ordering Dr: Darius Gonzalez MD Date: 09/12/17 Location: IA3 Sex: M C Admitted: 09/10/17 Test Reason [...] found Confirmed by KE GARCIA MD ([id number]), greeting card editor YARON WOODS ([id number]) on 09/22/2017 2:40:35 PM Referred By: [facility] Confirmed By:KE GARCIA MD 09/22/17 1440 Date Ke Garcia MD CC: Darius Gonzalez MD; Chapis Minor MD; Lambert Larios MD Signed PROGRESS Observed: 09/18/2017 Status: COMPLETED Source: [place] 2:30 PM [facility] REPOSITORY HNO ID: [id number] Author: Leni Mcbride Service: (none) Author Type: Physician Collections And Archives Director Type: Progress Notes Filed: 09/18/2017 2:51 PM Note Text: [facility], 09/18/17: INTERVAL HISTORY: The patient is here for follow up of asthma. Recently admitted to [facility] secondary to cellulitis following a fall. [...] orthopnea. GI: No heartburn, dysphagia. Improving diarrhea. Uro/FORGESMITH: No dysuria, hesitancy, nocturia. Musculoskeletal: Little left [...] acceptance of my answers. Leni Mcbride PA-C [facility] [place] [address] [place] [address] [phone] CNOV Observed: 09/18/2017 Status: COMPLETED Source: [place] 2:[address] [facility] REPOSITORY Office Visit (PULMWS) CARISSA YIP ([id number]) 1940 Feng Date Time Provider Department 09/18/17 2:30 PM LENI MCBRIDE PULMWS During your visit today, we recorded the following information about you: Pulse Respiration Blood pressure 105/minute 18/minute 120/70 Leni Mcbride 09/18/2017 2:51 PM Signed [facility], 09/18/17: INTERVAL HISTORY: The patient is here for follow up of asthma. Recently admitted to [facility] secondary to cellulitis following a fall. [...] orthopnea. GI: No heartburn, dysphagia. Improving diarrhea. Uro/FORGESMITH: No dysuria, hesitancy, nocturia. Musculoskeletal: Little left [...] acceptance of my answers. Leni Mcbride PA-C [facility] [address] [phone] Leni Mcbride 09/18/2017 2:50 PM [...] right ventricular strain. Referring Provider: LENI MCBRIDE [[id number]] Allergies As of Date: 09/18/2017 Noted Allergy [...] [I27.82] Pulmonary hypertension [I27.20] Order(s):SPIROMETRY BASELINE ONLY [6102040] Order #: [id number] FUTURE NITRIC OXIDE, EXHALED [1599726] Order #: [id number] FUTURE Prescriptions as of 09/18/2017 Sig: SERTRALINE [...] 09/16/2017 Status: F Source: BREN[place] 11:46 PM [facility] REPOSITORY [facility] Medical Records Department [address] [place] [address] Consultation 09/16/17 1100 MR#: [id number] Acct: [id number] Name: CARISSA YIP Rep #: [id number] : 1940 76 From: Christy Hinds MD PCP: Lambert Larios MD Status: DIS IN Y Location: IA3 [id number] Reason for Consult Date of Consultation: 09/16/17 Reason for Consultation: Open surgical wound left leg. REFFERING PHYSICIAN: Dr. Chin. CUSTOMER ACCOUNT ADMINISTRATOR: Dr. Hinds. History of Present Illness: The [...] 650 mg PO Q6H PRN Hydrocodone Bitart/Acetaminophen (Munson 5mg-325mg) 1 tablet PO Q4H PRN Al [...] Sulfate (Ferrous Sulfate) 325 mg PO BIDCM [facility] Fluticasone Propionate (Flonase Nasal Maxwell) 2 spray NASAL BID SW[facility] Glucagon () 1 mg IM .X1 PRN Guaifenesin (Mucinex) 600 mg PO BID SW[facility] Ipratropium Houston (Atrovent) 0.5 mg INHALATION 4X/DAY PRN Lactobacillus Acidophilus (Acidophilus) 2 tablet PO TID [facility] Leflunomide (Leflunomide) 10 mg PO DAILY [facility] Lisinopril (Zestril) 20 mg PO DAILY [facility] Metronidazole (Flagyl) 500 mg PO TID [facility] Montelukast Sodium (Singulair) 10 mg PO QHS [facility] Morphine Sulfate () 1 - 2 mg IV Q4H PRN Multivitamins (Multivitamin) 1 tablet PO DAILYCM [facility] Nutritional Formula (Lactose Free) (Ensure Enlive) 120 ml PO 4X/DAY [facility] Nystatin/Triamcinolone Acetonide (Mycolog) 1 applic TOPICAL BID SW[facility] Ondansetron HCl (Zofran) 4 mg IV Q8H PRN Pantoprazole Sodium (Protonix) 20 mg PO DAILY [facility] Polyethylene Glycol (Miralax) 17 gm PO DAILY SW[facility] Rivaroxaban (Xarelto) 20 mg PO DINNER SWATH[facility] Sertraline HCl (Zoloft) 150 mg PO DAILY [facility] Zolpidem Tartrate (Ambien (Generic)) 5 mg PO [...] grafting. Code Visit Inpatient E AND M: 91159 Init Hosp L2 - ICD-10 - S81.802A, L02.416, L03.116 09/16/17 2346 <Electronically signed by Christy Hinds MD> Date Christy Hinds MD Cosigner Signature (if applicable): Date CC: Homero Chin MD; Christy Hinds MD; Chapis Minor MD; Chet Mckenna MD; Lambert Larios MD; [facility] Signed DISCHARGE SUMMARY Observed: 09/16/2017 Status: F Source: BRENDA 5:53 PM [facility] REPOSITORY [facility] Medical Records Department [address] [place] [address] Discharge Summary 09/16/17 1229 MR#: [id number] Acct: [id number] Name: CARISSA YIP Rep #: [id number] : 1940 76 From: Chapis Minor MD PCP: Lambert Larios MD Status: DIS IN Y Location: IA3 [id number] Discharge Date and Diagnosis Date of Admission: [...] Course and Treatment Consultations 09/11/17 09:16 Consult: Onc/Wound/waste cotton cleaner Routine Comment: Reason for Consult:: left leg [...] NASAL BID 07/13/13 Fluticasone 0.05% [Flonase Nasal Maxwell] 2 spray NASAL BID 07/13/13 Montelukast [Singulair] 10 mg PO QHS 07/13/13 Sertraline HCl [Zoloft] 150 mg PO DAILY 07/13/13 Tiotropium Houston [Spiriva 18 MCG] 1 puff INHALATION DAILY [...] .X1 PRN syringe 09/16/17 Hydrocodone Bitart/Apap 5-325 [Munson 5/325] 1 tab PO Q4H PRN PRN #20 tab 09/16/17 Lactobacillus Acidophilus [Acidophilus] 2 tab PO TID #30 tab 09/16/17 Leflunomide 10 mg PO DAILY tablet 09/16/17 Following Prescrptions Were Given to Patient: Hydrocodone Bitart/Apap 5-325 [Munson 5/325] 1 tab PO Q4H PRN PRN [...] applicable Code Visit Inpatient E AND M: 41559 Disch Hosp 09/16/17 1753 <Electronically signed by Chapis Minor MD> Date Chapis Minor MD Cosigner Signature (if applicable): Date CC: Chapis Minor MD; Lambert Larios MD Signed DISCHARGE INSTRUCTION Observed: 09/16/2017 Status: F Source: [place] 12:29 PM [facility] REPOSITORY [facility] Medical Records Department [address] [place] [address] Instructions for Home/Discharge Instructions 09/16/17 1228 MR#: [id number] Acct: [id number] Name: CARISSA YIP Rep #: [id number] : 1940 76 From: Chapis Minor MD [...] NASAL BID 07/13/13 Fluticasone 0.05% [Flonase Nasal Maxwell] 2 spray NASAL BID 07/13/13 Montelukast [Singulair] 10 mg PO QHS 07/13/13 Sertraline HCl [Zoloft] 150 mg PO DAILY 07/13/13 Tiotropium Houston [Spiriva 18 MCG] 1 puff INHALATION DAILY [...] .X1 PRN syringe 09/16/17 Hydrocodone Bitart/Apap 5-325 [Munson 5/325] 1 tab PO Q4H PRN PRN #20 tab 09/16/17 Lactobacillus Acidophilus [Acidophilus] 2 tab PO TID #30 tab 09/16/17 Leflunomide 10 mg PO DAILY tablet 09/16/17 The following prescriptions were given: Hydrocodone Bitart/Apap 5-325 [Munson 5/325] 1 tab PO Q4H PRN PRN [...] 09/16/2017 Status: F Source: [place]EN[place] 11:33 AM [facility] REPOSITORY TYPE CODE TESTS RESULT OUT OF RANGE REFERENCE UNITS LAB L501.080 70-110 mg/dL Normal BEDSIDE GLU 93 Result Comment: MANAGEMENT OF PATIENT CARE PER NURSING PROTOCOL Performed By: #### L501.080 #### [facility] Point of Care [address] [place] [address] BEDSIDE GLUCOSE Collected: 09/16/2017 Status: F Source: BRENDA 6:41 AM [facility] REPOSITORY TYPE CODE TESTS RESULT OUT OF REFERENCE UNITS RANGE LAB L501.080 70-110 mg/dL High BEDSIDE GLU 131 Result Comment: MANAGEMENT OF PATIENT CARE PER NURSING PROTOCOL Performed By: #### L501.080 #### [facility] Point of Care [address] [place] [address] BEDSIDE GLUCOSE Collected: 09/15/2017 Status: F Source: BRENDA 10:43 PM [facility] REPOSITORY TYPE CODE TESTS RESULT OUT OF REFERENCE UNITS RANGE LAB L501.080 70-110 mg/dL High BEDSIDE GLU 148 Result Comment: MANAGEMENT OF PATIENT CARE PER NURSING PROTOCOL Performed By: #### L501.080 #### [facility] Point of Care [address] [place] [address] BEDSIDE GLUCOSE Collected: 09/15/2017 Status: F Source: BRENDA 4:48 PM [facility] REPOSITORY TYPE CODE TESTS RESULT OUT OF REFERENCE UNITS RANGE LAB L501.080 70-110 mg/dL High BEDSIDE GLU 118 Result Comment: MANAGEMENT OF PATIENT CARE PER NURSING PROTOCOL Performed By: #### L501.080 #### [facility] Point of Care [address] [address] BEDSIDE GLUCOSE Collected: 09/15/2017 Status: F Source: BRENDA 11:29 AM [facility] REPOSITORY TYPE CODE TESTS RESULT OUT OF RANGE REFERENCE UNITS LAB L501.080 70-110 mg/dL Normal BEDSIDE GLU 105 Result Comment: MANAGEMENT OF PATIENT CARE PER NURSING PROTOCOL Performed By: #### L501.080 #### [facility] Point of Care [address] [place] [address] BEDSIDE GLUCOSE Collected: 09/15/2017 Status: F Source: BRENDA 6:18 AM [facility] REPOSITORY TYPE CODE TESTS RESULT OUT OF REFERENCE UNITS RANGE LAB L501.080 70-110 mg/dL High BEDSIDE GLU 117 Result Comment: MANAGEMENT OF PATIENT CARE PER NURSING PROTOCOL Performed By: #### L501.080 #### [facility] Point of Care [address] [place] [address] BASIC METABOLIC Collected: 09/15/2017 Status: F Source: BRENDA PROFILE (BMP) 5:20 AM [facility] REPOSITORY TYPE CODE TESTS RESULT OUT [...] 6 Performed By: #### L500.2500, L501.5200 #### [facility] [address] [place], [place], [address] MAGNESIUM Collected: 09/15/2017 Status: F Source: BEL[place]ST 5:20 AM [facility] REPOSITORY TYPE CODE TESTS RESULT OUT OF RANGE REFERENCE UNITS LAB L501.5200 1.6-2.6 mg/dL Normal MG 2.0 Performed By: #### L500.2500, L501.5200 #### [facility] [address] [place], [address] CBC-COMPLETE BLOOD CNT Collected: 09/15/2017 Status: F Source: [place] NO DIFF 5:20 AM [facility] REPOSITORY TYPE CODE TESTS RESULT OUT [...] MPV 9.5 Performed By: #### L100.0500 #### [facility] [address] [place], [address] BEDSIDE GLUCOSE Collected: 09/14/2017 Status: F Source: BRENDA 9:12 PM [facility] REPOSITORY TYPE CODE TESTS RESULT OUT OF REFERENCE UNITS RANGE LAB L501.080 70-110 mg/dL High BEDSIDE GLU 111 Result Comment: MANAGEMENT OF PATIENT CARE PER NURSING PROTOCOL Performed By: #### L501.080 #### [facility] Point of Care [address] [place] [address] BEDSIDE GLUCOSE Collected: 09/14/2017 Status: F Source: BRENDA 6:11 PM [facility] REPOSITORY TYPE CODE TESTS RESULT OUT OF REFERENCE UNITS RANGE LAB L501.080 70-110 mg/dL High BEDSIDE GLU 148 Result Comment: MANAGEMENT OF PATIENT CARE PER NURSING PROTOCOL Performed By: #### L501.080 #### [facility] Point of Care [address] [place] [address] BEDSIDE GLUCOSE Collected: 09/14/2017 Status: F Source: BRENDA 11:44 AM [facility] REPOSITORY TYPE CODE TESTS RESULT OUT OF REFERENCE UNITS RANGE LAB L501.080 70-110 mg/dL High BEDSIDE GLU 116 Result Comment: MANAGEMENT OF PATIENT CARE PER NURSING PROTOCOL Performed By: #### L501.080 #### [facility] Point of Care [address] [place] [address] CBC-COMPLETE BLOOD CNT Collected: 09/14/2017 Status: F Source: BRENDA NO DIFF 8:08 AM [facility] REPOSITORY TYPE CODE TESTS RESULT OUT [...] MPV 9.3 Performed By: #### L100.0500 #### [facility] [address] [place], [address] BASIC METABOLIC Collected: 09/14/2017 Status: F Source: [place] PROFILE (BMP) 8:08 AM [facility] REPOSITORY TYPE CODE TESTS RESULT OUT [...] 7 Performed By: #### L500.2500, L501.5200 #### [facility] [address] [place], [address] MAGNESIUM Collected: 09/14/2017 Status: F Source: BRENDA 8:08 AM [facility] REPOSITORY TYPE CODE TESTS RESULT OUT OF RANGE REFERENCE UNITS LAB L501.5200 1.6-2.6 mg/dL Low MG 1.5 Performed By: #### L500.2500, L501.5200 #### [facility] [address] [facility] [address] BEDSIDE GLUCOSE Collected: 09/14/2017 Status: F Source: BRENDA 7:15 AM [facility] REPOSITORY TYPE CODE TESTS RESULT OUT OF RANGE REFERENCE UNITS LAB L501.080 70-110 mg/dL Normal BEDSIDE GLU 98 Result Comment: MANAGEMENT OF PATIENT CARE PER NURSING PROTOCOL Performed By: #### L501.080 #### [facility] Point of Care [address] [place] [address] BEDSIDE GLUCOSE Collected: 09/13/2017 Status: F Source: BRENDA 9:49 PM [facility] REPOSITORY TYPE CODE TESTS RESULT OUT OF RANGE REFERENCE UNITS LAB L501.080 70-110 mg/dL Normal BEDSIDE GLU 101 Result Comment: MANAGEMENT OF PATIENT CARE PER NURSING PROTOCOL Performed By: #### L501.080 #### [facility] Point of Care [address] [place] [address] BEDSIDE GLUCOSE Collected: 09/13/2017 Status: F Source: BRENDA 3:54 PM [facility] REPOSITORY TYPE CODE TESTS RESULT OUT OF REFERENCE UNITS RANGE LAB L501.080 70-110 mg/dL High BEDSIDE GLU 142 Result Comment: MANAGEMENT OF PATIENT CARE PER NURSING PROTOCOL Performed By: #### L501.080 #### [facility] Point of Care [address] [place] [address] BEDSIDE GLUCOSE Collected: 09/13/2017 Status: F Source: BRENDA 12:14 PM [facility] REPOSITORY TYPE CODE TESTS RESULT OUT OF REFERENCE UNITS RANGE LAB L501.080 70-110 mg/dL High BEDSIDE GLU 132 Result Comment: MANAGEMENT OF PATIENT CARE PER NURSING PROTOCOL Performed By: #### L501.080 #### [facility] Point of Care [address] [place] [address] BEDSIDE GLUCOSE Collected: 09/13/2017 Status: F Source: BRENDA 6:33 AM [facility] REPOSITORY TYPE CODE TESTS RESULT OUT OF RANGE REFERENCE UNITS LAB L501.080 70-110 mg/dL Normal BEDSIDE GLU 100 Result Comment: MANAGEMENT OF PATIENT CARE PER NURSING PROTOCOL Performed By: #### L501.080 #### [facility] Point of Care [address] [place] [address] BEDSIDE GLUCOSE Collected: 09/12/2017 Status: F Source: BRENDA 9:46 PM [facility] REPOSITORY TYPE CODE TESTS RESULT OUT OF REFERENCE UNITS RANGE LAB L501.080 70-110 mg/dL High BEDSIDE GLU 129 Result Comment: MANAGEMENT OF PATIENT CARE PER NURSING PROTOCOL Performed By: #### L501.080 #### [facility] Point of Care [address] [place] [address] BEDSIDE GLUCOSE Collected: 09/12/2017 Status: F Source: BRENDA 4:29 PM [facility] REPOSITORY TYPE CODE TESTS RESULT OUT OF RANGE REFERENCE UNITS LAB L501.080 70-110 mg/dL Normal BEDSIDE GLU 104 Result Comment: MANAGEMENT OF PATIENT CARE PER NURSING PROTOCOL Performed By: #### L501.080 #### [facility] Point of Care [address] [place] [address] OPERATIVE REPORT Observed: 09/12/2017 Status: F Source: BRENDA 12:49 PM [facility] REPOSITORY [facility] Medical Records Department [address] [place] [address] Operative Report 09/12/17 1241 MR#: [id number] Acct: [id number] Name: CARISSA YIP Rep #: [id number] : 1940 76 From: Homero Chin MD PCP: Lambert Larios MD Status: ADM IN Y Location: MS3 CX214-2 Problem List (1) Abscess of left leg [...] 09/12/2017 Status: F Source: BRENDA 11:12 AM [facility] REPOSIT[facility] TYPE CODE TESTS RESULT OUT OF RANGE REFERENCE UNITS LAB L501.080 70-110 mg/dL Normal BEDSIDE GLU 97 Result Comment: MANAGEMENT OF PATIENT CARE PER NURSING PROTOCOL Performed By: #### L501.080 #### [facility] Point of Care [address] [facility] [address] [place], [place] [address] BEDSIDE GLUCOSE Collected: 09/12/2017 Status: F Source: [place] 6:34 AM [facility] REPOSITORY TYPE CODE TESTS RESULT OUT OF RANGE REFERENCE UNITS LAB L501.080 70-110 mg/dL Normal BEDSIDE GLU 96 Result Comment: MANAGEMENT OF PATIENT CARE PER NURSING PROTOCOL Performed By: #### L501.080 #### [facility] Point of Care [address] [address] PROTHROMBIN TIME W/INR Collected: 09/12/2017 Status: F Source: [place] 5:30 AM [facility] REPOSITORY TYPE CODE TESTS RESULT OUT OF RANGE REFERENCE UNITS LAB L300.4150 11.7-14.9 SECONDS Normal PROTIME 14.4 LAB L300.4200 Normal INR 1.1 Performed By: #### L300.3900, L300.4310 #### [facility] [address], [address] PARTIAL THROMBOPLAST Collected: 09/12/2017 Status: F Source: [place] TIME 5:30 AM [facility] REPOSITORY TYPE CODE TESTS RESULT OUT OF REFERENCE UNITS RANGE LAB L300.4310 24.1-36.2 Seconds High PTT 41.1 Performed By: #### L300.3900, L300.4310 #### [facility] [address] [facility] [place], [address] CBC W/DIFF, AUTOMATED Collected: 09/12/2017 Status: F Source: [place]ST 5:30 AM [facility] REPOSITORY TYPE CODE TESTS RESULT OUT [...] Lymph 0.74 Performed By: #### L100.0100 #### [facility] [address] [place], [place], [address] BASIC METABOLIC Collected: 09/12/2017 Status: F Source: [place] PROFILE (BMP) 5:30 AM [facility] REPOSITORY TYPE CODE TESTS RESULT OUT [...] GAP 8 Performed By: #### L500.2500 #### [facility] [address] [place], [address] HEMOGLOBIN A1C Collected: 09/12/2017 Status: F Source: [place] 5:30 AM [facility] REPOSITORY TYPE CODE TESTS RESULT OUT OF RANGE REFERENCE UNITS LAB L501.9985 4.2-6.3 % High HGB A1C 7.7 Performed By: #### L501.9985 #### [facility] [address] [place], [address] Observed: 09/12/2017 Status: F Source: [place] CULTURE, DEEP WOUND 12:00 AM [facility] REPOSITORY Order Date: 12/18/16 Comments: WOUND TISSUE [...] <=20 S (NF) indicates non-formulary drug at [facility]. Approval by Infectious Disease Specialist required before non-formulary drugs may be ordered and/or dispensed. Enterococcus faecalis: REACTION Ampicillin $ <=2 S Benzylpenicillin NF 2 S Gentamicin SYN-S S Linezolid $$$$ 2 S Tigecycline $$$$ <=0.12 S Streptomycin $ SYN-S S Vancomycin $ 1 S (NF) indicates non-formulary drug at [facility]. Approval by Infectious Disease Specialist required before non-formulary drugs may be ordered and/or dispensed. * CLSI guidelines does not recommend testing of cephalosporins. This interpretation is deduced from Beta-lactam/penicillin results. Cult, Anaerobic No anaerobic bacteria isolated. Performed By: #### M100.1500 #### [facility] [address] [place], [address] AFB Observed: 09/12/2017 Status: F Source: BRENDA CULT/SMEAR [id number] 12:00 AM [facility] REPOSITORY Comments: WOUND TISSUE LEFT LOWER LEG Is this test to exclude patient from TB Isolation? N AFB Smear/Fluor TESTING PERFORMED AT [facility]. ORIGINAL REPORT ON FILE IN LAB CONTAINS ADDITIONAL TEST SITE INFORMATION. Smear, Acid Fast Tissue Grinding Smear: Negative AFB Cult [facility] ORIGINAL REPORT ON FILE IN LAB CONTAINS ADDITIONAL TEST SITE INFORMATION. Culture, Acid Fast NO ACID-FAST BACILLI ISOLATED AFTER 6 WEEKS. Performed By: #### M100.3880, M6Carol.0 #### [facility] [address] [place], [address] Observed: 09/12/2017 Status: F Source: BRENDA CULTURE, FUNGUS W/ 12:00 AM [facility] [id number] REPOSITORY Comments: WOUND TISSUE LEFT LOWER LEG Is this test to exclude patient from TB Isolation? N Cu,[id number] TESTING PERFORMED AT [facility]. ORIGINAL REPORT ON FILE IN LAB CONTAINS ADDITIONAL TEST SITE INFORMATION. CUF No yeast or mold isolated after 4 weeks. Culture, Fungus No Yeast or Mold isolated at [address] [facility] ORIGINAL REPORT ON FILE IN LAB CONTAINS ADDITIONAL TEST SITE INFORMATION. Fungus Stain No yeast or mold observed. Performed By: #### M100.3880, M6.0 #### [facility] [address] [place], [address] BEDSIDE GLUCOSE Collected: 09/11/2017 Status: F Source: BRENDA 11:23 PM [facility] REPOSITORY TYPE CODE TESTS RESULT OUT OF REFERENCE UNITS RANGE LAB L501.080 70-110 mg/dL High BEDSIDE GLU 119 Result Comment: MANAGEMENT OF PATIENT CARE PER NURSING PROTOCOL Performed By: #### L501.080 #### [facility] Point of Care [address] [place] [address] CONSULTATION Observed: 09/11/2017 Status: F Source: BEL[place] 7:00 PM [facility] REPOSITORY [facility] Medical Records Department [address] [place] [address] Consultation 09/11/17 1855 MR#: [id number] Acct: [id number] Name: CARISSA YIP Rep #: [id number] : 1940 76 From: Homero Chin MD PCP: Lambert Larios MD Status: ADM IN Y [facility] Problem List (1) Abscess of left leg [...] and tomorrow morning. Homero Chin MD Pager: [facility] [address] [place] [address], [address] [place] [address] Office: Procedure documentation: The left lower extremity [...] Homero Chin MD> Date Homero Chin MD [facility] Signature (if applicable): Date CC: Chet Mckenna MD; Lambert Larios MD Signed TYPE AND SCREEN Collected: 09/11/2017 Status: F Source: BRENDA 6:29 PM [facility] REPOSITORY Order Comment: Reason for Type AND Screen/Red Cells: SURGERY TYPE CODE TESTS RESULT OUT OF RANGE REFERENCE UNITS LAB B10.0800 A Normal BLOOD TYPE GEL POSITIVE LAB B100.4000 Normal Antibody NEGATIVE Screen Performed By: #### B101.7450 #### [facility] [address] [facility] [address] BEDSIDE GLUCOSE Collected: 09/11/2017 Status: F Source: BRENDA 4:14 PM [facility] REPOSITORY TYPE CODE TESTS RESULT OUT OF REFERENCE UNITS RANGE LAB L501.080 70-110 mg/dL High BEDSIDE GLU 142 Result Comment: MANAGEMENT OF PATIENT CARE PER NURSING PROTOCOL Performed By: #### L501.080 #### [facility] Point of Care [address] [place] [address] BEDSIDE GLUCOSE Collected: 09/11/2017 Status: F Source: BRENDA 11:28 AM [facility] REPOSITORY TYPE CODE TESTS RESULT OUT OF REFERENCE UNITS RANGE LAB L501.080 70-110 mg/dL High BEDSIDE GLU 117 Result Comment: MANAGEMENT OF PATIENT CARE PER NURSING PROTOCOL Performed By: #### L501.080 #### [facility] Point of Care [address] [place] [address] EMERGENCY DEPARTMENT Observed: 09/11/2017 Status: F Source: BRENDA SUMMARY 8:00 AM [facility] REPOSITORY [facility] Medical Records Department [address] [address] Emergency Department Summary 09/06/17 0032 MR#: [id number] Acct: [id number] Name: CARISSA YIP Rep #: [id number] : 1940 76 From: Prasanth Meier DO [...] Tetanus update This note was generated with [email or web address] dictation software. It may contain incorrect words, [...] your Primary Care Provider. Call [facility] ([phone]) or report to the closest Emergency Room. Call 911 if necessary. 09/11/17 0800 <Electronically signed by Prasanth Meier DO> Date Prasanth Meier DO Cosigner Signature (If Indicated): Date CC: Lambert Larios MD BEDSIDE GLUCOSE Collected: 09/11/2017 Status: F Source: BRENDA 7:03 AM [facility] REPOSITORY TYPE CODE TESTS RESULT OUT OF RANGE REFERENCE UNITS LAB L501.080 70-110 mg/dL Normal BEDSIDE GLU 98 Result Comment: MANAGEMENT OF PATIENT CARE PER NURSING PROTOCOL Performed By: #### L501.080 #### [facility] [place] [address] BASIC METABOLIC Collected: 09/11/2017 Status: F Source: BRENDA PROFILE (BMP) 6:05 AM [facility] REPOSITORY TYPE CODE TESTS RESULT OUT [...] GAP 7 Performed By: #### L500.2500 #### [facility] [address] [facility] [place], [address] BEDSIDE GLUCOSE Collected: 09/10/2017 Status: F Source: [place] 10:56 PM [facility] REPOSITORY TYPE CODE TESTS RESULT OUT OF REFERENCE UNITS RANGE LAB L501.080 70-110 mg/dL High BEDSIDE GLU 122 Result Comment: MANAGEMENT OF PATIENT CARE PER NURSING PROTOCOL Performed By: #### L501.080 #### [facility] Point of Care [address] [facility] [place] [address] BEDSIDE GLUCOSE Collected: 09/10/2017 Status: F Source: [place] 4:05 PM [facility] REPOSITORY TYPE CODE TESTS RESULT OUT OF REFERENCE UNITS RANGE LAB L501.080 70-110 mg/dL High BEDSIDE GLU 131 Result Comment: MANAGEMENT OF PATIENT CARE PER NURSING PROTOCOL Performed By: #### L501.080 #### [facility] Point of Care [address] [facility] [place] [address] CONSULTATION Observed: 09/10/2017 Status: F Source: [place] 11:59 AM [facility] REPOSITORY [facility] Medical Records Department [address] [place] [address] Consultation 09/10/17 1152 MR#: [id number] Acct: [id number] Name: CARISSA YIP Rep #: [id number] : 1940 76 From: Chet Mckenna MD PCP: Lambert Larios MD Status: ADM IN Y Location: MS3 FN839-3 Problem List (1) Cellulitis of left leg [...] 09/10/2017 Status: F Source: BRENDA 11:17 AM [facility] REPOSITORY TYPE CODE TESTS RESULT OUT OF REFERENCE UNITS RANGE LAB L501.080 70-110 mg/dL High BEDSIDE GLU 137 Result Comment: MANAGEMENT OF PATIENT CARE PER NURSING PROTOCOL Performed By: #### L501.080 #### [facility] Point of Care [address] [place], [place] [address] MRSA WOUND DNA BY Collected: 09/10/2017 Status: F Source: BRENDA PCR 10:10 AM [facility] REPOSITORY TYPE CODE TESTS RESULT OUT OF RANGE REFERENCE UNITS LAB L8200.1100 Negative Normal MRSA Negative RESULT LAB L8200.1150 Negative Normal SA RESULT NEGATIVE Performed By: #### L8200.1075 #### [facility] [address] [place], [address] M R STAPH AUREUS Collected: 09/10/2017 Status: F Source: BRENDA DNA BY PCR 10:10 AM [facility] REPOSITORY TYPE CODE TESTS RESULT OUT OF RANGE REFERENCE UNITS LAB L8200.1100 Negative Normal MRSA Negative RESULT Performed By: #### L8200.1000 #### [facility] [address] [facility] [place], [address] Observed: 09/10/2017 Status: F Source: BRENDA CULTURE, DEEP WOUND 10:10 AM [facility] REPOSITORY Gram Stain Gram Stain 1+ Gram [...] <=20 S (NF) indicates non-formulary drug at [facility]. Approval by Infectious Disease Specialist required before non-formulary drugs may be ordered and/or dispensed. Cult, Anaerobic No anaerobic bacteria isolated. Performed By: #### M100.1500 #### [facility] [address] [facility] [place], [address] BEDSIDE GLUCOSE Collected: 09/10/2017 Status: F Source: BRENDA 6:52 AM [facility] REPOSITORY TYPE CODE TESTS RESULT OUT OF REFERENCE UNITS RANGE LAB L501.080 70-110 mg/dL High BEDSIDE GLU 149 Result Comment: MANAGEMENT OF PATIENT CARE PER NURSING PROTOCOL Performed By: #### L501.080 #### [facility] Point of Care [address] [place] [address] LACTIC ACID Collected: 09/10/2017 Status: F Source: BRENDA 3:00 AM [facility] REPOSITORY Order Comment: Yes/No query for Sepsis Lactate Rule Y TYPE CODE TESTS RESULT OUT OF RANGE REFERENCE UNITS LAB L503.6005 0.4-2.0 mmol/L Normal LACTIC ACID 0.8 Performed By: #### L503.6005 #### [facility] [address] [place], [address] TIBIA AND FIBULA Observed: 09/10/2017 Status: F Source: [place] 2 VIEWS 2:26 AM [facility] REPOSITORY [facility] Imaging Services [address] [place] [address] Tibia AND Fibula 2 Views MR#: [id number] Acct: [id number] Name: CARISSA YIP Rep #: [id number] : 1940 76 From: Cindi Bernal MD PCP: Lambert Larios MD Status: ADM IN Study: Tibia AND Fibula 2 Views Date of Exam: 09/10/17 Exam# [id number] Ordering Dr: Neil Vargas MD STUDY: X-RAY [...] CC: Neil Vargas MD; Lambert Larios MD Check Weigher: Signed HISTORY AND PHYSICAL Observed: 09/10/2017 Status: F Source: [place] EXAM 1:33 AM [facility] REPOSITORY [facility] Medical Records Department [address] [place] [address] History and Physical 09/10/17 0041 MR#: [id number] Acct: [id number] Name: CARISSA YIP Rep #: [id number] : 1940 76 From: Neil Vargas MD PCP: Lambert Larios MD Status: ADM IN Y Location: [facility]3 PC539-4 Problem List (1) Cellulitis of left leg [...] On Xarelto. This note was generated with [email or web address] dictation software. Every effort was made to ensure accuracy, however computerized wash mill operator mistakes may persist. Code Visit Inpatient Pee AND M: [id number] Init Hosp L3 09/10/17 0133 <Electronically signed by Neil Vargas MD> Date Neil Vargas MD Cosigner Signature: Date (if applicable) CC: Neil Vargas MD; Lambert Larios MD Signed EMERGENCY DEPARTMENT Observed: 09/10/2017 Status: F Source: [place] SUMMARY 12:33 AM [facility] Medical Records Department [address] [place] [address] Emergency Department Summary 09/10/17 0029 MR#: [id number] Acct: [id number] Name: CARISSA YIP Rep #: [id number] : 1940 76 From: Casa Powell MD [...] Wound infection This note was generated with [email or web address] dictation software. It may contain incorrect words, [...] problems, contact your Primary Care Provider. Call [facility] ([phone]) or report to the closest Emergency Room. Call 911 if necessary. 09/10/17 0033 <Electronically signed by Casa Powell MD> Date Casa Powell MD Cosigner Signature (If Indicated): Date CC: Lambert Larios MD CBC W/DIFF, AUTOMATED Collected: 09/09/2017 Status: F Source: [place]ST 11:30 PM [facility] REPOSITORY TYPE CODE TESTS RESULT OUT [...] Lymph 0.68 Performed By: #### L100.0100 #### [facility] [address] [facility] [place], [place], [address] BASIC METABOLIC Collected: 09/09/2017 Status: F Source: [place] PROFILE (BMP) 11:30 PM [facility] REPOSITORY TYPE CODE TESTS RESULT OUT [...] GAP 7 Performed By: #### L500.2500 #### [facility] [address] [facility]. [place], [place], [address] PROTHROMBIN TIME W/INR Collected: 09/09/2017 Status: F Source: [place] 11:30 PM [facility] REPOSITORY TYPE CODE TESTS RESULT OUT OF RANGE REFERENCE UNITS LAB L300.4150 11.7-14.9 SECONDS High PROTIME 19.4 LAB L300.4200 Normal INR 1.6 Performed By: #### L300.3900, L300.4310 #### [facility] [address] [place], [place], [address] PARTIAL THROMBOPLAST Collected: 09/09/2017 Status: F Source: [place] TIME 11:30 PM [facility] REPOSITORY TYPE CODE TESTS RESULT OUT OF REFERENCE UNITS RANGE LAB L300.4310 24.1-36.2 Seconds High PTT 55.4 Performed By: #### L300.3900, L300.4310 #### [facility] [address] [facility] [place], [address] LIVER PROFILE Collected: 09/09/2017 Status: F Source: [place] 11:30 PM [facility] REPOSITORY TYPE CODE TESTS RESULT OUT [...] 0.15 Performed By: #### L500.3400, L501.6710 #### [facility] [address] [facility] [place], [address] CRP Collected: 09/09/2017 Status: F Source: [place] 11:30 PM [facility] REPOSITORY TYPE CODE TESTS RESULT OUT OF RANGE REFERENCE UNITS LAB L501.6710 0.0-3.0 mg/L High 121.00 C-REACTIVE PROT Result Comment: C-Reactive Protein (CRP) provides useful information for the diagnosis, therapy and monitoring of inflammatory processes and associated diseases. For the evaluation of Relative Risk for Cardiovascular Disease, a High Sensitivity CRP (HSCRP) should be ordered. Performed By: #### L500.3400, L501.6710 #### [facility] [address] [place], [address] ERYTHROCYTE SED RATE Collected: 09/09/2017 Status: F Source: [place] 11:30 PM [facility] REPOSITORY TYPE CODE TESTS RESULT OUT OF RANGE REFERENCE UNITS LAB L102.0000 0-20 mm/hr High SED RATE 66 Performed By: #### L101.9900 #### [facility] [address] [facility] [place], [place], [address] HEMOGLOBIN A1C Collected: 09/09/2017 Status: F Source: [place] 11:30 PM [facility] REPOSITORY TYPE CODE TESTS RESULT OUT OF RANGE REFERENCE UNITS LAB L501.9985 4.2-6.3 % High HGB A1C 6.9 Performed By: #### L501.9985 #### [facility] [address] [place], [address] Observed: 09/09/2017 Status: F Source: [place] CULTURE, BLOOD (WB) 11:30 PM [facility] REPOSITORY BC No growth in 5 days. Performed By: #### M200.1000 #### [facility] [address] [place], [address] 12 LEAD ELECTROCARDIOGRAM Observed: 09/08/2017 Status: F Source: BRENDA 2:22 PM [facility] REPOSITORY [facility] Cardiovascular Services [address] [place] [address] 12 Lead EKG 09/05/17 1542 MR#: [id number] Acct: [id number] Name: CARISSA YIP Rep #: [id number] : 1940 76 From: Jer Josue MD [...] normal ECG Confirmed by SINAI MOULTON, JER ([id number]), greeting card editor YARON WOODS ([id number]) on 09/08/2017 2:21:58 PM Referred By: Prasanth Meier Confirmed By:JER JOSUE MD 09/08/17 1422 Date Jer Josue MD CC: Prasanth Meier DO; Lambert Larios MD Signed TIBIA AND FIBULA Observed: 09/05/2017 Status: F Source: [place]EN[place] 2 VIEWS 3:14 PM [facility] REPOSITORY [facility] Imaging Services [address] [place] [address] Tibia AND Fibula 2 Views MR#: [id number] Acct: [id number] Name: CARISSA YIP Rep #: [id number] : 1940 M 76 From: Antonio Kahn MD PCP: Lambert Larios MD Status: REG ER Study: Tibia AND Fibula 2 Views Date of Exam: 09/05/17 Exam# [id number] Ordering Dr: Prasanth Meier DO STUDY: X-RAY [...] Antonio Kahn MD at 15:50 EDT Tel [phone], Service support , CC: Prasanth Meier DO; Lambert Larios MD Check Weigher: Signed BASIC METABOLIC Collected: 09/05/2017 Status: F Source: BRENDA PROFILE (BMP) 3:05 PM [facility] TYPE CODE TESTS RESULT [...] GAP 7 Performed By: #### L500.2500 #### [facility] [address] [place], [place], [address] CBC W/DIFF, AUTOMATED Collected: 09/05/2017 Status: F Source: [place] 3:05 PM [facility] REPOSITORY TYPE CODE TESTS RESULT OUT [...] Lymph 0.64 Performed By: #### L100.0100 #### [facility] [address] [facility] [place], [address] PROTHROMBIN TIME W/INR Collected: 09/05/2017 Status: F Source: [place] 3:05 PM [facility] REPOSITORY TYPE CODE TESTS RESULT OUT OF RANGE REFERENCE UNITS LAB L300.4150 11.7-14.9 SECONDS High PROTIME 19.8 LAB L300.4200 Normal INR 1.7 Performed By: #### L300.3900, L300.4310 #### [facility] [address] [place], [address] PARTIAL THROMBOPLAST Collected: 09/05/2017 Status: F Source: [place] TIME 3:05 PM [facility] REPOSITORY TYPE CODE TESTS RESULT OUT OF REFERENCE UNITS RANGE LAB L300.4310 24.1-36.2 Seconds High PTT 41.1 Performed By: #### L300.3900, L300.4310 #### [facility] [address] [place], [address] XR CHEST 2V FRONTAL/LAT Observed: 08/29/2017 Status: F Source: [place] 12:36 PM [facility] REPOSITORY * * *Final Report* * * [...] No residual infiltrate is evident. Pleural calcifications Check Weigher: PSCB Transcribe Date/Time: Aug 29 2017 4:51P Dictated by : МАРИНА PENN MD This examination was interpreted and the report reviewed and electronically signed by: МАРИНА PENN MD on Aug 29 2017 4:52PM EST [id number] PROGRESS Observed: 08/29/2017 Status: COMPLETED Source: [place] 12:[address] [facility] REPOSITORY HNO ID: [id number] Author: Blake Dowell (Tech) Service: (none) Author Type: Applications Engineer Type: Progress Notes Filed: 08/29/2017 12:36 PM [...] CASE BMP Collected: 08/25/2017 Status: F Source: [place] 11:[address] [facility] REPOSITORY TYPE CODE TESTS RESULT OUT [...] GFR. PROGRESS Observed: 08/25/2017 Status: COMPLETED Source: [place] 10:[address] [facility] REPOSITORY O ID: [id number] Author: Lambert Larios Service: (none) Author Type: Physician Type: Progress Notes Filed: 08/25/2017 11:06 AM Note Text: This note was created using Utility Scale Solarter. Subjective Carissa Yip is a 76 year [...] Take 2 capsules once a day. 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 No current facility-administered medications for this visit. 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 - [...] MD CNOV Observed: 08/25/2017 Status: COMPLETED Source: [place] 9:[address] [facility] REPOSITORY Office Visit (INTMWS) CARISSA YIP ([id number]) 1940 M Date Time Provider Department 08/25/17 9:40 AM LAMBERT LARIOS INTMWS During your visit today, we recorded the following information about you: Temperature Pulse Respiration Blood pressure 97.6 degrees 100/minute 20/minute 134/66 Weight 96.2 kg Lambert Larios MD 08/25/2017 11:06 AM Addendum This note was created using Photop Technologiesriter. Subjective Carissa Yip is a 76 year [...] Take 2 capsules once a day. 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 No current facility-administered medications for this visit. 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 - [...] ECG COMPLETE W INTERPRETATION [ECG01] Order #: [id number] FUTURE nitroglycerin sublingual (NITROQUICK) 0.4 mg SL tabletDissolve 1 tablet under the tongue every 5 minutes as needed for Chest Pain.Disp: 1 Bottle of 25Rfl: 0 [facility]DA ISTAT [facility] [SQWSTBMP] Order #: [id number] FUTURE Prescriptions as of 08/25/2017 Sig: SERTRALINE [...] 08/25/17 TSH Collected: 08/21/2017 Status: F Source: [place] 9:[address] [facility] REPOSITORY TYPE CODE TESTS RESULT OUT OF RANGE REFERENCE UNITS LAB TSH 0.400-5.500 uU/mL TSH 4.460 Performed By: #### TSH #### [facility] [address] [address] ALBUMIN/CREAT RATIO Collected: 08/21/2017 Status: F Source: [place] 9:[address] [facility] REPOSITORY TYPE CODE TESTS RESULT OUT OF REFERENCE UNITS RANGE LAB UCRR 20-300 mg/dL 139.4 Creatinine,Ur ine,Ran LAB UALBR 0.0-23.0 mg/L <12.0 Albumin Urine Random LAB UALBCR 0-30 mg/g Not Albumin/Creat calculated Ratio Performed By: #### UACR #### [facility] [address] [place], [place] [address] HEMOGLOBIN A1C Collected: 08/21/2017 Status: F Source: [place] 9:[address] [facility] REPOSITORY TYPE CODE TESTS RESULT OUT OF REFERENCE UNITS RANGE LAB HGBA1C 4.3-5.6 % High Hemoglobin A1c 6.9 LAB HBA0 mg/dL Est. Average Glucose 151 Result Comment: eAG: (Estimated average glucose) is a calculated value from HgbA1c and is hr representative of the average blood glucose level in the last 2-3 month period. Performed By: #### HBA1C, LIPB #### [facility] [address] [place], [place] [address] LIPID PANEL, BASIC Collected: 08/21/2017 Status: F Source: [place] 9:[address] [facility] REPOSITORY TYPE CODE TESTS RESULT OUT [...] Reference: National Heart, Lung, [facility] [place] [facility]. National Institutes of Health. 2001: NIH Publication No. 01-3305. 2. An International Atherosclerosis Society position paper: global recommendations for the management of dyslipidemia: executive summary, Atherosclerosis. 2014: 232(2):410-413. Performed By: #### HBA1C, LIPB #### [facility] [address] [address] PROGRESS Observed: 08/14/2017 Status: COMPLETED Source: [place] 2:[address] [facility] REPOSITORY HNO ID: [id number] Author: Daniel Montalvo Service: (none) Author Type: Physician Type: Progress Notes Filed: 08/14/2017 2:35 PM Note Text: She should continue low molecular weight heparin ( Lovenox 1mg/kg sq every 12 hours ) Please adjust dose to her current weight. Daniel Montalvo MD PROGRESS Observed: 08/14/2017 Status: COMPLETED Source: [place] 1:[address] 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 Walks dog daily. No nocturnal awakenings. Twice [...] edema, orthopnea. GI: No heartburn, dysphagia, diarrhea. Uro/FORGESMITH: No dysuria, hesitancy, nocturia. Musculoskeletal: No pain. [...] acceptance of my answers. Leni Mcbride PA-C [facility] [place] [address] [place] [phone] ALEJANDRA Observed: 08/14/2017 Status: COMPLETED Source: [place] 1:[address] 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 Walks dog daily. No nocturnal awakenings. Twice [...] edema, orthopnea. GI: No heartburn, dysphagia, diarrhea. Uro/FORGESMITH: No dysuria, hesitancy, nocturia. Musculoskeletal: No pain. [...] acceptance of my answers. Leni Mcbride PA-C [facility] [address] [address] Leni Mcbride PA-C 08/14/2017 2:03 [...] Daniel Montalvo MD Referring Provider: LENI MCBRIDE [[id number]] Allergies As of Date: 08/14/2017 Noted Allergy [...] 08/14/17 KELSEY Observed: 08/12/2017 Status: COMPLETED Source: [place] 12:[address] [facility] REPOSITORY Patient Outreach (INTMWH) CARISSA YIP ([id number]) 1940 M Date Time Provider Department 08/12/17 LAMBERT LARIOS [facility] During your visit today, we recorded the [...] Order(s):ALBUMIN/CREAT RATIO RND UR [SQUACR] Order #: [id number] FUTURE HGB A1C [FSJMP3M] Order #: [id number] FUTURE LIPID PANEL BASIC [SQLIPB] Order #: [id number] FUTURE Prescriptions as of 08/12/2017 Sig: DOXYCYCLINE [...] 02/27/18 PROGRESS Observed: 08/11/2017 Status: COMPLETED Source: [place] 2:02 PM [facility] REPOSITORY HNO ID: [id number] Author: Seema Henderson) ZEE Lovett.PETROS Service: (none) [...] 02/25/2007 - Skin cancer of face [facility]. - Unspecified asthma(493.90) ALLERGIES Indocin [Indomethacin Sodium]; [...] Take 2 capsules once a day. 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 CNOV Observed: 08/11/2017 Status: COMPLETED Source: [place] 2:[address] [facility] REPOSITORY Office Visit (FAMPWS) CARISSA YIP ([id number]) 1940 M Date Time Provider Department 08/11/17 [...] Rosacea 02/25/2007 - Skin cancer of face [facility]. - Unspecified asthma(493.90) ALLERGIES Indocin [Indomethacin [...] Take 2 capsules once a day. 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 Patient advised if symptoms do not improve or if symptoms worsen sooner, to contact their primary care physician. Potential red flag symptoms discussed with the patient. Reviewed appropriate action plan to take if red flag symptoms occur. Patient agreeable to treatment plan. Referring Provider: ELEAZAR GUEVARA (IAN) [[id number]] Allergies As of Date: 08/11/2017 Noted Allergy [...] chest x-ray [R91.8] Order(s):XR CHEST 2V FRONTAL/LAT [[id number]] Order #: [id number] FUTURE Prescriptions as of 08/11/2017 Sig: DOXYCYCLINE [...] 2V FRONTAL/LAT Observed: 08/07/2017 Status: F Source: [place] 11:[address] [facility] REPOSITORY * * *Final Report* * * [...] versus infiltrates, worse compared to prior study. Check Weigher: PSCB Transcribe Date/Time: Aug 07 2017 11:17A Dictated by : LURDES WESTFALL MD This examination was interpreted and the report reviewed and electronically signed by: LURDES WESTFALL MD on Aug 07 2017 11:18AM EST [id number] PROGRESS Observed: 08/07/2017 Status: COMPLETED Source: [place] 11:[address] [facility] REPOSITORY HNO ID: [id number] Author: Keila Chen Service: (none) Author Type: [...] AM PROGRESS Observed: 08/07/2017 Status: COMPLETED Source: [place] 10:[address] [facility] REPOSITORY HNO ID: [id number] Author: Eleazar Guevara (Pa) Service: (none) Author Type: Physician Collections And Archives Director Type: Progress Notes Filed: 08/07/2017 12:11 PM [...] Rosacea 02/25/2007 - Skin cancer of face [facility]. - Unspecified asthma(493.90) Current Outpatient Prescriptions: [...] Take 2 capsules once a day. 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 Disp: Rfl: 0 montelukast (SINGULAIR) 10 mg [...] Colonoscopy - COLONOSCOP W/ OR W/O [facility] SPEC 8-3-16 - COLONOSCOPY - DIAGNOSTIC [...] PA-C CNOV Observed: 08/07/2017 Status: COMPLETED Source: [place] 10:[address] [facility] REPOSITORY Office Visit (WSTR) CARISSA YIP ([id number]) 1940 M Date Time Provider Department 08/07/17 [...] Rosacea 02/25/2007 - Skin cancer of face [facility]. - Unspecified asthma(493.90) Current Outpatient Prescriptions: [...] Take 2 capsules once a day. 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 Disp: Rfl: 0 montelukast (SINGULAIR) 10 mg [...] 01/17/11 - COLONOSCOP W/ OR W/O [facility] SPEC 07/28/14 Colonoscopy - COLONOSCOP W/ OR W/O [facility] SPEC 12-20-15 - COLONOSCOPY - DIAGNOSTIC [...] Diagnosis:Bacterial pneumonia [J15.9] Order(s):XR CHEST 2V FRONTAL/LAT [[id number]] Order #: [id number] FUTURE albuterol (PROVENTIL) 5 mg/mL nebuInhale 0.5 [...] AND DIFFERENTIAL Collected: 07/21/2017 Status: F Source: [place] 11:12 AM [facility] RE[facility] TYPE [...] Low Abs Lymph 0.97 LAB AMONO % Dickson% 10.9 LAB AAMONO <0.87 k/uL Abs Dickson 0.68 LAB AEOS % Eosin% 1.1 LAB AAEOS <0.46 k/uL Abs Eosin 0.07 LAB ABASO % Baso% 0.2 LAB AABASO <0.11 k/uL Abs Baso <0.03 LAB AUNRBC 0 /100 WBC NRBCs 0.0 LAB ABNRBC <0.01 k/uL Absolute nRBC <0.01 LAB DTYP DTYPE Auto Diff Performed By: #### CBCDIF, CMP, TSH, B12 #### [facility] [address] [place], [place] [address] COMP METABOLIC PANEL Collected: 07/21/2017 Status: F Source: [place] 11:12 AM [facility] REPOSITORY TYPE CODE TESTS RESULT OUT OF REFERENCE UNITS RANGE LAB TP 6.3-8.0 g/dL Protein, Total 7.6 LAB ALB 3.9-4.9 g/dL Albumin 4.0 LAB CA 8.5-10.2 mg/dL Calcium, Total 9.8 LAB TBIL 0.2-1.3 mg/dL Bilirubin, Total 0.6 LAB ALKP 36-108 U/L Alkaline Phosphatase 68 LAB AST 14-40 U/L AST 31 LAB GLU 74-99 mg/dL Glucose 96 Result Comment: The [place] Diabetes Association (ADA) provides guidance for cutoff [...] Standards of Medical Care in Diabetes 2016, [place] Diabetes Association. Diabetes Care. 2016.39(Suppl 1). LAB [...] By: #### CBCDIF, CMP, TSH, B12 #### [facility] [address] [place] [address] TSH Collected: 07/21/2017 Status: F Source: [place] 11:[address] [facility] REPOSITORY TYPE CODE TESTS RESULT OUT OF RANGE REFERENCE UNITS LAB TSH 0.400-5.500 uU/mL High TSH 5.650 Performed By: #### CBCDIF, CMP, TSH, B12 #### [facility] [address] [address] VITAMIN B12 Collected: 07/21/2017 Status: F Source: [place] 11:[address] [facility] REPOSITORY TYPE CODE TESTS RESULT OUT OF REFERENCE UNITS RANGE LAB B12 232-1245 pg/mL Vitamin B12 536 Performed By: #### CBCDIF, CMP, TSH, B12 #### [facility] [address] [address] PROGRESS Observed: 07/21/2017 Status: COMPLETED Source: [place] 10:[address] [facility] REPOSITORY HNO ID: [id number] Author: Elena (Audit Associate) Older Service: (none) Author Type: Nurse Practitioner [...] loss: Yes, Misplacing things, forgetful, missing appointments senior living memory loss: No Short attention span: No [...] 02/25/2007 - Skin cancer of face [facility]. - Unspecified asthma(493.90) PAST SURGICAL HISTORY Procedure [...] Take 2 capsules once a day. 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 montelukast (SINGULAIR) 10 mg tablet Take 1 [...] PETROS MartinezOV Observed: 07/21/2017 Status: COMPLETED Source: [place] 10:[address] [facility] REPOSITORY Office Visit (INTMWS) CARISSA YIP ([id number]) 1940 M Date Time Provider Department 07/21/17 10:20 AM ELENA MONTERROSO (PETROS) INTMWS During your visit today, we recorded the following information about you: Temperature Pulse Respiration Blood pressure 98.3 degrees 78/minute 16/minute 123/77 Weight 96.6 kg Elena Older, HEALTH AND FITNESS PROFESSOR 07/22/2017 9:06 AM Signed CC: Patient presents with: memory issues HPI Carissa Yip is a 76 year old male who presents today for memory issues. States having problems with short term memory for the past couple months. Difficulty concentrating and planning things: No Short term memory loss: Yes, Misplacing things, forgetful, missing appointments senior living memory loss: No Short attention span: No [...] 02/25/2007 - Skin cancer of face [facility]. - Unspecified asthma(493.90) PAST SURGICAL HISTORY Procedure [...] Take 2 capsules once a day. 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 montelukast (SINGULAIR) 10 mg tablet Take 1 [...] Date Reviewed: 07/21/2017 Reviewed by: Kait Velazquez Back Joiner - Fully Assessed Reason for Visit: memory issues [Other] Primary Visit Diagnosis:Short-term memory loss [R41.3] Other Visit Diagnoses:Forgetfulness [R68.89] Anxiety and depression [F41.8] Order(s):VITAMIN B12 BLOOD [SQB12] Order #: [id number] FUTURE CBC + DIFF [SQCBCDIF] Order #: [id number] FUTURE COMP METABOLIC PANEL [SQCMP] Order #: [id number] FUTURE TSH BLD [SQTSH] Order #: [id number] FUTURE Prescriptions as of 07/21/2017 Sig: RIVAROXABAN [...] on file. Encounter Status:Closed by OLDER, ELENA HEALTH AND FITNESS PROFESSOR on 07/22/17 COMPREHENSIVE METABOLIC Collected: 07/10/2017 Status: F Source: BRENDA LOYA 2:02 PM [facility] REPOSITORY TYPE CODE TESTS RESULT OUT [...] 5-15 Normal GAP 7 Performed By: #### L500.4058 #### [facility] [place], [address] CBC W/DIFF, AUTOMATED Collected: 07/10/2017 Status: F Source: [place] 2:02 PM [facility] REPOSITORY TYPE CODE TESTS RESULT OUT [...] Lymph 1.23 Performed By: #### L100.0100 #### [facility] [address] [place], [address] PROGRESS Observed: 07/10/2017 Status: COMPLETED Source: [place] 12:[address] [facility] REPOSITORY HNO ID: [id number] Author: Leni Mcbride Service: (none) Author Type: Physician Collections And Archives Director Type: Progress Notes Filed: 07/10/2017 1:43 PM Note Text: [facility]: INTERVAL HISTORY: The patient is here for follow up of asthma. Since the last visit 07/10/17, patient was evaluated at [facility] ER 06/22/17 for increased shortness of [...] Lower extremity edema. GI: No heartburn, dysphagia. 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 Neuro/Psych: No headache, focal [...] normal. No tremor. DATA REVIEW: CXR from [facility] ED 06/22/17: patchy left basilar consolidations [...] do hypercoagulable studies. 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 Suggest saline nasal spray and/or vaseline. Drink [...] acceptance of my answers. Leni Mcbride PA-C [facility] [address] [place] [address] PROGRESS Observed: 06/27/2017 Status: COMPLETED Source: [place] 2:42 PM [facility] REPOSITORY HNO ID: [id number] Author: Ted Henderson) Ronnie Service: (none) Author Type: Nurse Practitioner Type: Progress Notes Filed: 06/27/2017 3:29 PM Note Text: CC: Patient presents with: Recheck: Follow up, pneumonia HPI Carissa Yip is a 76 year old male who presents today for [facility] ER follow up from 06/22/17. Patient [...] 02/25/2007 - Skin cancer of face [facility]. - Unspecified asthma(493.90) PAST SURGICAL HISTORY Procedure Laterality Date - APPENDECTOMY 11-02-14 - COLONOS W/REM POLYP SNARE 07/25/05 - COLONOS W/REM POLYP SNARE 01/17/11 - COLONOSCOP W/ OR W/O [facility] SPEC 07/28/14 Colonoscopy - COLONOSCOP W/ OR W/O [facility] SPEC 12-20-15 - COLONOSCOPY - DIAGNOSTIC [...] Take 2 capsules once a day. 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 montelukast (SINGULAIR) 10 mg tablet Take 1 [...] 06/24/2017 Status: F Source: [place] 10:09 AM [facility] Cardiovascular Services [address] [place] [address] 12 Lead EKG 06/22/17 0742 MR#: [id number] Acct: [id number] Name: CARISSA YIP Rep #: [id number] : 1940 76 From: Jer Josue MD [...] ECG Confirmed by SINAI MOULTON, JER ([id number]), greeting card editor YARON WOODS ([id number]) on 06/24/2017 10:09:14 AM Referred By: HAMMAD Confirmed By:JER JOSUE MD 06/24/17 1009 Date Jer Josue MD CC: Leni Valentine MD; Lambert Larios MD Signed EMERGENCY DEPARTMENT Observed: 06/22/2017 Status: F Source: BRENDA SUMMARY 11:59 AM [facility] Medical Records Department [address] [place] [address] Emergency Department Summary 06/22/17 0736 MR#: [id number] Acct: [id number] Name: CARISSA YIP Rep #: [id number] : 1940 76 From: Leni Valentine MD [...] acquired pneumonia This note was generated with Hearsay.it dictation software. It may contain incorrect words, [...] your Primary Care Provider. Call [facility] ([phone]) or report to the closest Emergency Room. Call 911 if necessary. 06/22/17 1159 <Electronically signed by Leni Valentine MD> Date Leni Valentine MD Cosigner Signature (If Indicated): Date CC: Lambert Larios MD DISCHARGE INSTRUCTION Observed: 06/22/2017 Status: F Source: [place] 9:05 AM [facility] REPOSITORY [facility] Medical Records Department [address] [place] [address] Discharge Instruction 06/22/17903 MR#: [id number] Acct: [id number] Name: CARISSA YIP Rep #: [id number] : 1940 76 From: Leni Valentine MD [...] your Primary Care Provider. Call [facility] ([phone]) or report to the closest Emergency Room. Call 911 if necessary. 06/22/17 0905 <Electronically signed by Leni Valentine MD> Date Leni Valentine MD Cosigner Signature (If Indicated): Date CC: Lambert Larios MD CBC W/DIFF, AUTOMATED Collected: 06/22/2017 Status: F Source: [place] 7:40 AM [facility] REPOSITORY TYPE CODE TESTS RESULT OUT [...] Lymph 0.59 Performed By: #### L100.0100 #### [facility] [address] [place], [address] BASIC METABOLIC Collected: 06/22/2017 Status: F Source: [place]ENDA PROFILE (BMP) 7:40 AM [facility] REPOSITORY Order Comment: 'TROP' Serial specimen #1, [...] 10 Performed By: #### L500.2500, L501.4010 #### [facility] [address] [place], [place], [address] TROPONIN-I Collected: 06/22/2017 Status: F Source: BRENDA 7:40 AM [facility] REPOSITORY Order Comment: 'TROP' Serial specimen #1, #2, #3, or #4: 1 TYPE CODE TESTS RESULT OUT OF RANGE REFERENCE UNITS LAB L501.4010 <0.06 ng/mL Normal < 0.02 TROPONIN-I Result Comment: TROPONIN-I EXPECTED VALUES <0.05 NEGATIVE 0.06 - 0.59 AT RISK OF WA > OR = 0.60 SUGGEST WA Performed By: #### L500.2500, L501.4010 #### [facility] [address] [place], [address] BNP,B-TYPE NATRIURETIC Collected: 06/22/2017 Status: F Source: [place] PEPTIDE 7:40 AM [facility] REPOSITORY TYPE CODE TESTS RESULT OUT OF RANGE REFERENCE UNITS LAB L503.6620 0-100 pg/mL Normal B-TYPE 27.7 GIORGI PEP Performed By: #### L503.6620 #### [facility] [address] [place], [address] CHEST PA AND LATERAL Observed: 06/22/2017 Status: F Source: BRENDA 7:34 AM [facility] REPOSITORY [facility] Imaging Services [address] [place] [address] Chest PA and Lateral MR#: [id number] Acct: [id number] Name: CARISSA YIP Rep #: [id number] : 1940 M 76 From: Yessenia Woods MD PCP: Lambert Larios MD Status: REG ER Study: Chest PA and Lateral Date of Exam: 06/22/17 Exam# [id number] Ordering Dr: Leni Valentine MD STUDY: X-RAY [...] CC: Leni Valentine MD; Lambert Larios MD Check Weigher: Signed ALLERGIES ALLERGIES DATE TYPE / CODE NAME / CODE REACTION SEVERITY SOURCE 05/01/2018 Drug oxycodone Itching Unknown [place] Allergy/416 HCl/[id number](RXNO Community 897408([facility] ED CT) Repository 05/01/2018 Drug indomethacin Itching Unknown [place] Allergy/416 sodium/[id number](R Community 317174([facility] Repository 05/01/2018 Drug indomethacin/D00369 Itching Unknown [place] Allergy/416 2373(RXNORM) Community 141001([facility] ED CT) Repository 11/12/2012 Environ/420 SEASONAL ALLERGIES OTHER: SEE [facility] 484859([facility] ED CT) Repository 04/01/2011 DRUG/676221 INDOMETHACIN SODIUM OTHER: SEE C [facility] 003([facility] Other [place]) Repository 01/08/2005 DRUG/002473 OXYCODONE-ACETAMINO [facility] 003([facility] Other [place]) Repository NG/[id number] INDOMETHACIN SODIUM [facility] 6([facility] Health System CT) Repository NG/98914323 OXYCODONE-ACETAMINO [facility] 6([facility] Health System CT) Repository NG/78105238 SEASONAL ALLERGIES [facility] 6([facility] System CT) Repository ENCOUNTERS ENCOUNTERS ADMIT/DISCHARGE ACCOUNT NUMBER ADMITTING ENCOUNTER LOCATION SOURCE CLASS 05/27/2018/05/27/19 [id number] Ambulatory [address] Other [place] Repository 05/27/2018/05/27/19 [id number] Ambulatory [address] System MEDICAL Repository CENTERBuildi ng:AKUF 05/22/2018/05/25/19 [id number] [facility]ulatory [facility] [place] Repository 05/20/2018/05/20/19 [id number] Ambulatory [place] [facility] Main [place] Repository 05/20/2018/05/20/19 [id number] Ambulatory [facility] [place] Repository 05/20/2018/05/20/19 [id number] Ambulatory [facility] [place] Repository 05/17/2018/05/18/20 [id number] Ambulatory [place] [facility] Main [place] Repository 05/14/2018/05/21/19 [id number] Ambulatory [place] [facility] [place] Repository 05/14/2018/05/14/20 [id number] Ambulatory [place] [facility] [place] Repository 05/14/2018/05/14/20 [id number] Ambulatory [place] [facility] [place] Repository 05/06/2018 [id number] Ambulatory [facility] ding:NM Repository 05/04/2018 [id number] Ambulatory [facility] ding:CVS Repository 05/04/2018 [id number] Ambulatory BMSBuilding: [facility] Repository 05/01/2018/05/01/20 [id number] Emergency [address] ding:ED Repository 04/13/2018/04/14/20 [id number] Ambulatory [address] Main [place] Repository 04/07/2018/04/07/20 [id number] Ambulatory [address] Main [place] Repository 04/01/2018/04/02/20 [id number] Ambulatory [place] [facility] Main [place] Repository 03/30/2018/04/01/20 [id number] Ambulatory [address] Main [place] Repository 03/29/2018 [id number] Ambulatory [facility] ding:WC Repository 03/27/2018/03/30/20 [id number] Ambulatory [place] [facility] [place] Repository 03/25/2018/03/25/20 [id number] Ambulatory [place] [facility] [place] Repository 03/25/2018/03/27/20 [id number] Ambulatory [place] [facility] [place] Repository 03/17/2018/03/18/20 [id number] Ambulatory Brenda Brenda 18 [facility] ding:WC Repository 03/06/2018/03/06/20 [id number] Ambulatory [place] [facility] [place] Repository 03/04/2018/03/04/20 [id number] Ambulatory [place] [facility] [place] Repository 03/04/2018/03/04/20 [id number] Ambulatory [place] [facility] [place] Repository 03/02/2018/03/03/20 [id number] Ambulatory [place] [facility] [place] Repository 02/20/2018/02/21/20 [id number] Ambulatory [address] Main [place] Repository 02/12/2018/02/14/20 [id number] Ambulatory [place] [facility] [place] Repository 02/10/2018/02/16/20 [id number] Ambulatory [place] Brenda 18 [facility] ding:WC Repository 02/09/2018/02/11/20 [id number] Ambulatory [address] Main [place] Repository 01/13/2018/01/17/20 [id number] Ambulatory Brenda [place] 18 [facility] ding:WC Repository 01/01/2018/01/02/20 [id number] Ambulatory [address] Main [place] Repository 12/29/2017/01/01/20 [id number] Ambulatory [address] Main [place] Repository 12/19/2017/04/14/20 [id number] Ambulatory [address] Main [place] Repository 12/19/2017/12/20/19 [id number] Ambulatory [address] Main [place] Repository 12/19/2017/12/31/19 [id number] Ambulatory [address] Main [place] Repository 12/16/2017/12/17/19 [id number] Ambulatory [place] Brenda 18 [facility] ding:WC Repository 12/06/2017/12/07/19 [id number] Emergency Brenda Brenda 18 [facility] ding:ED Repository 12/06/2017/12/07/19 [id number] Ambulatory [address] Main [place] Repository 12/06/2017/12/07/19 [id number] Ambulatory [address] Main [place] Repository 11/18/2017/11/19/19 [id number] Ambulatory [address] Main [place] Repository 11/12/2017/11/13/19 [id number] Ambulatory [address] Repository 11/12/2017/11/14/19 [id number] Ambulatory [address] Repository 11/11/2017/11/16/19 [id number] Ambulatory [address] ding:WC Repository 11/06/2017/11/11/19 [id number] Imamura, Inpatient Brenda [place] ding:[id number] Repository : YL762Nug: 1 11/06/2017 [id number] Imamura, Ambulatory BMSBuilding: [place] Yoichi BMS.[facility] Repository 11/06/2017 [id number] Imamura, Ambulatory BMSBuilding: Brenda Yoichi BMS.[facility] Repository 11/06/2017 [id number] Imamura, Ambulatory BMSBuilding: Brenda Yoichi BMS.[facility] Repository 11/06/2017 [id number] Imamura, Ambulatory BMSBuilding: [place] Yoichi BMS.[facility] Repository 11/06/2017 [id number] Imamura, Ambulatory BMSBuilding: [place] Yoichi BMS.[facility] Repository 11/06/2017/11/08/19 [id number] Ambulatory [address] Repository 11/05/2017/11/07/19 [id number] Ambulatory [address] Repository 10/31/2017 [id number] Ambulatory [facility] MEDICAL Repository CENTERBuildi ng:CAGWS 10/29/2017/10/30/19 [id number] Ambulatory [address] Repository 10/10/2017/10/17/19 [id number] Ambulatory [address] ding:WC Repository 10/08/2017/10/10/19 [id number] Ambulatory [address] Repository 10/01/2017/10/02/19 [id number] Ambulatory [address] Repository 09/25/2017 [id number] Ambulatory [facility] Repository 09/25/2017/09/30/19 [id number] Ambulatory [address] Repository 09/18/2017/05/07 [id number] Ambulatory [address] Repository 09/10/2017/09/17/19 [id number] Sam, Inpatient Brenda Brenda 18 Neil Encounter [facility] ding:[id number] Repository : DP546Fpz: 1 09/10/2017 [id number] Sam, Ambulatory BMSBuilding: Brenda Neil BMS.[facility] Repository 09/10/2017 [id number] [facility], Ambulatory BMSBuilding: [place] Neil BMS.[facility] Repository 09/10/2017 [id number] Sam, Ambulatory BMSBuilding: Brenda Neil BMS.CF.[facility] Repository 09/10/2017 [id number] Sam, Ambulatory BMSBuilding: Brenda Neil BMS.[facility] Repository 09/10/2017 [id number] Sam, Ambulatory BMSBuilding: [place] Neil BMS.CF.[facility] Repository 09/10/2017 [id number] [facility], Ambulatory BMSBuilding: Brenda Neil BMS.[facility] Repository 09/10/2017 [id number] [facility], Ambulatory BMSBuilding: [place] Neil BMS.CF.[facility] Repository 09/10/2017 [id number] [facility], Ambulatory BMSBuilding: [place] Neil BMS.[facility] Repository 09/10/2017 [id number] Sam, Ambulatory BMSBuilding: Brenda Neil BMS.CF.[facility] Repository 09/10/2017 [id number] Sam, Ambulatory BMSBuilding: [place] Neil BMS.CF.[facility] Repository 09/10/2017 [id number] [facility], Ambulatory BMSBuilding: Brenda Neil BMS.[facility] Repository 09/10/2017 [id number] Sam, Ambulatory BMSBuilding: [place] Neil BMS.CF.[facility] Repository 09/10/2017 [id number] Sam, Ambulatory BMSBuilding: [place] Neil BMS.[facility] Repository 09/10/2017 [id number] Sam, Ambulatory BMSBuilding: [place] Neil BMS.CF.[facility] Repository 09/10/2017 [id number] Ambulatory BMSBuilding: Bren[facility] Repository 09/10/2017/09/17/19 [id number] Ambulatory BMSBuilding: [address] Repository 09/05/2017/09/06/19 [id number] Emergency [address] ding:ED Repository 08/29/2017/08/30/19 [id number] Ambulatory [address] Main [place] Repository 08/25/2017/08/26/19 [id number] Ambulatory [address] [place] Repository 08/25/2017/08/26/19 [id number] Ambulatory [address] [place] Repository 08/25/2017/08/27/19 [id number] Ambulatory [address] [place] Repository 08/21/2017 [id number] [facility]ulatory [facility] [place] Repository 08/14/2017/08/16/19 [id number] Ambulatory [address] Main [place] Repository 08/11/2017/08/13/19 [id number] Ambulatory [address] [place] Repository 08/07/2017/08/08/19 [id number] Ambulatory [address] [place] Repository 08/07/2017/08/09/19 [id number] Ambulatory [address] [place] Repository 07/21/2017/07/22/19 [id number] Ambulatory [address] [place] Repository 07/21/2017/07/23/19 [id number] Ambulatory [address] [place] Repository 07/10/2017 [id number] Ambulatory [facility] ding:MTLAB Repository 07/10/2017/07/10/19 [id number] Ambulatory [address] [place] Repository 06/29/2017 [id number] Ambulatory [facility] ding:WC Repository 06/27/2017/06/27/19 [id number] Ambulatory [address] [place] Repository 06/22/2017/06/22/19 [id number] Emergency [address] ding:ED Repository PAYERS PAYERS ENCOUNTER GUARANTOR PAYER SUBSCRIBER SOURCE 05/27/2018 CARISSA [facility] KLEERDOB: Insurance:HUMANA KLEPPERDOB: Health [facility] [id number] [facility] [id number] Repository CHRISTY NICCI, Number: [id number]: [id number] Date: (HP) 05/06/2018 CARISSA G Primary CARISSA Clotilde OhBrenda [id number] Insurance:HUMANA KLEERDOB: [facility] [place], MEDICARE PPOPolicy [id number] [facility] [address]Naf: Number: Repository [id number] (HP) Date:5356-15-19QM [address] [address]IF: 05/06/2018 Secondary NOT GIVENUNK [place] Insurance:SELF PAY [facility] Number: Effective Repository Date:2018-04-08 05/04/2018 CARISSA G KLEPPER Primary CARISSA G KLEPPER Brenda Sr.7829 CHRISTY Insurance:HUMANA [facility] [place] PPOPolicy [id number] [address]Ilp: (330) Number: Repository [phone] () [id number] Date:5796-83-81XN [address]4601WP: 05/04/2018 Secondary NOT GIVENUNK Brenda Insurance:SELF PAY [facility] Number: Effective Repository Date:2018-04-30 05/04/2018 CARISSA G KLEPPER Primary CARISSA G KLEPPER [place] Sr.7829 CHRISTY Insurance:HUMANA Sr.: [place] PPOPolicy [id number] Hospital [address]Fhj: (330) Number: Repository [phone] () [id number] Date:1255-92-41JB [address] [address]VZ: 05/04/2018 Secondary NOT GIVENUNK [place] Insurance:SELF PAY [facility] Number: Effective Repository Date:2018-05-04 05/01/2018 CARISSA G KLEPPER Primary CARISSA G KLEPPER Bren[place] Sr.7829 CHRISTY Insurance:HUMANA Sr.: [place] PPOPolicy [id number] Hospital [address]Vzm: (330) Number: Repository [phone] () [id number] Date:5301-60-68BM [place] [address]WP: 05/01/2018 Secondary NOT GIVENUNK Brenda Insurance:SELF PAY [facility] Number: Effective Repository Date:2018-05-01 03/29/2018 Carissa Mabry Primary Carissa Mabry Brenda [id number] Insurance:HUMANA KlepperDOB: [facility] [place], MEDICARE PPOPolicy [id number] Cancer Center [address]Lro: Number: Repository [id number] (HP) Date:2978-45-79UN [place] [address]WP: 03/29/2018 Secondary NOT GIVENUNK Brenda Insurance:SELF PAY [facility] Number: Effective Repository Date:2018-03-19 03/17/2018 Carissa Mabry Primary Carissa Mabry [place] [id number] Insurance:HUMANA KlepperDOB: [facility] [place], MEDICARE PPOPolicy [id number] Cancer Center [address]Sxr: Number: Repository [id number] (HP) Date:3559-73-96DR [place] [address]WP: 03/17/2018 Secondary NOT GIVENUNK Brenda Insurance:SELF PAY [facility] Number: Effective Repository Date:2018-02-16 02/10/2018 Carissa Mabry Primary Carissa Mabry Brenda [id number] Insurance:HUMANA KlepperDOB: [facility] MED[facility]ARE PPOPolicy [id number] Cancer Center [address]Ffj: Number: Repository [id number] (HP) Date:9445-37-52QD [address] [address]TU: 02/10/2018 Secondary NOT GIVENUNK [place] Insurance:SELF PAY [facility] Number: Effective Repository Date:2018-01-17 01/13/2018 Carissa Mabry Primary Carissa Mabry [place] [id number] Insurance:HUMANA KlepperDOB: [facility] [place], MEDICARE PPOPolicy [id number] [place] [id number]: Number: Repository [id number] (HP) Date:5926-69-41BE [address]4601WP: 01/13/2018 Secondary NOT GIVENUNK [place] Insurance:SELF PAY [facility] Number: Effective Repository Date:2017-12-17 12/16/2017 Carissa Mabry Primary Carissa Mabry [place] [id number] Insurance:HUMANA KlepperDOB: [facility] MED[facility]ARE PPOPolicy [id number] Ville [id number]: Number: Repository [id number] (HP) Date:2886-16-07AO [address]4601WP: 12/16/2017 Secondary NOT GIVENUNK Brenda Insurance:SELF PAY [facility] Number: Effective Repository Date:2017-11-16 12/06/2017 Carissa Mabry Primary Carissa Mabry Brenda [id number] Insurance:HUMANA KlepperDOB: [facility], MEDICARE PPOPolicy [id number] Ville [id number]: Number: Repository [id number] (HP) Date:9807-23-30SB [address] [address]CI: 12/06/2017 Secondary NOT GIVENUNK Brenda Insurance:SELF PAY [facility] Number: Effective Repository Date:2017-12-06 11/11/2017 Carissa Mabry Primary Carissa Mabry Brenda [id number] Insurance:HUMANA KlepperDOB: [facility] [place], MEDICARE PPOPolicy [id number] [place] [address]Bsk: Number: Repository [id number] (HP) Date:9070-25-61AD [address] [place] [address]OW: 11/11/2017 Secondary NOT GIVENUNK [place] Insurance:SELF PAY [facility] Number: Effective Repository Date:2017-10-17 11/06/2017 Carissa G Primary Carissa G Brenda [id number] Insurance:HUMANA KlepperDOB: [facility] [place], MEDICARE PPOPolicy [id number] [place] [address]Ckp: Number: Repository [id number] (HP) Date:9501-26-63VZ [address] [place], [place] [id number]: 11/06/2017 Secondary NOT GIVENUNK Brenda Insurance:SELF PAY [facility] Number: Effective Repository Date:2017-11-06 11/06/2017 Carissa G Primary Carissa G Brenda [id number] Insurance:HUMANA KlepperDOB: [facility] [place], MEDICARE PPOPolicy [id number] Cancer Center [address]Nai: Number: Repository [id number] (HP) Date:5233-29-94LM [address] [place] [address]WM: 11/06/2017 Secondary NOT GIVENUNK [place] Insurance:SELF PAY [facility] Number: Effective Repository Date:2017-11-06 11/06/2017 Carissa G Primary Carissa G [place] [id number] Insurance:HUMANA KlepperDOB: [facility] [place], MEDICARE PPOPolicy [id number] [place] [address]Fmy: Number: Repository [id number] (HP) Date:5116-89-64DF [address] [place] [address]CX: 11/06/2017 Secondary NOT GIVENUNK Brenda Insurance:SELF PAY [facility] Number: Effective Repository Date:2017-11-06 11/06/2017 Carissa Mabry Primary Carissa Mabry Brenda [id number] Insurance:HUMANA KlepperDOB: [facility], MEDICARE PPOPolicy [id number] [place] [address]Eze: Number: Repository [id number] (HP) Date:0790-61-93AS [address] [place] [address]WP: 11/06/2017 Secondary NOT GIVENUNK Brenda Insurance:SELF PAY [facility] Number: Effective Repository Date:2017-11-06 11/06/2017 Carissa Mabry Primary Carissa Mabry [place] [id number] Insurance:HUMANA KlepperDOB: [facility] [place], [place] PPOPolicy [id number] [place] [address]Zea: Number: Repository [id number] (HP) Date:5432-83-96CH [address] [address]KO: 11/06/2017 Secondary NOT GIVENUNK Brenda Insurance:SELF PAY [facility] Number: Effective Repository Date:2017-11-06 11/06/2017 Carissa Mabry Primary Carissa Mabry [place] [id number] Insurance:HUMANA KlepperDOB: [facility] [place], MEDICARE PPOPolicy [id number] [place] [address]Flt: Number: Repository [id number] (HP) Date:3941-89-97NT [address] [place] [address]DL: 11/06/2017 Secondary NOT GIVENUNK [place] Insurance:SELF PAY [facility] Number: Effective Repository Date:2017-11-06 10/31/2017 CARISSA Mabry Primary CARISSA Mabry [facility] KLEPPERDOB: Insurance:HUMANA KLEPPERDOB: [facility] [id number] [facility] [id number] Repository CHRISTY GRAJEDA, Number: [id number]: [id number] Date: (HP) 10/10/2017 Carissa Mabry Primary Carissa Mabry Brenda [id number] Insurance:HUMANA KlepperDOB: [facility] [place], MEDICARE PPOPolicy [id number] [place] [address]Oun: Number: Repository [id number] (HP) Date:2117-36-70HY [address] [place], [place] [address]WP: 10/10/2017 Secondary NOT GIVENUNK [place] Insurance:SELF PAY [facility] Number: Effective Repository Date:2017-09-19 09/10/2017 Carissa Mabry Primary Carissa Mabry Brenda [id number] Insurance:HUMANA KlepperDOB: [facility] [place], MEDICARE PPOPolicy [id number] Cancer Center [address]Kxb: Number: Repository [id number] (HP) Date:9797-55-48DO [address] [place], [place] [id number]: 09/10/2017 Secondary NOT GIVENUNK [place] Insurance:SELF PAY [facility] Number: Effective Repository Date:2017-09-09 09/10/2017 Carissa Mabry Primary Carissa Mabry [place] [id number] Insurance:HUMANA KlepperDOB: [facility] [place], MEDICARE PPOPolicy [id number] [place] [address]Uoi: Number: Repository [id number] (HP) Date:0775-74-69AZ [address] [address]AX: 09/10/2017 Secondary NOT GIVENUNK Brenda Insurance:SELF PAY [facility] Number: Effective Repository Date:2017-09-10 09/10/2017 Carissa Mabry Primary Carissa Mabry [place] [id number] Insurance:HUMANA KlepperDOB: [facility] [address], MEDICARE PPOPolicy [id number] [facility] [place] [address]Xsf: Number: Repository [id number] (HP) Date:3316-03-63IT [address] [place] [address]WO: 09/10/2017 Secondary NOT GIVENUNK Brenda Insurance:SELF PAY [facility] Number: Effective Repository Date:2017-09-10 09/10/2017 Carissa Mabry Primary Carissa Mabry Brenda [id number] Insurance:HUMANA KlepperDOB: [facility] [place], MEDICARE PPOPolicy [id number] [facility] [place] [address]Ohs: Number: Repository [id number] (HP) Date:4735-86-38CU [address] [place] [address]HN: 09/10/2017 Secondary NOT GIVENUNK Brenda Insurance:SELF PAY [facility] Number: Effective Repository Date:2017-09-10 09/10/2017 Carissa Mabry Primary Carissa Mabry [place] [id number] Insurance:HUMANA KlepperDOB: [facility] [place], MEDICARE PPOPolicy [id number] [place] [address]Gka: Number: Repository [id number] (HP) Date:1978-27-86TM [address] [place] [address]SZ: 09/10/2017 Secondary NOT GIVENUNK Brenda Insurance:SELF PAY [facility] Number: Effective Repository Date:2017-09-10 09/10/2017 Carissa Mabry Primary Carissa Mabry [place] [id number] Insurance:HUMANA KlepperDOB: [facility] [place], MEDICARE PPOPolicy [id number] [address]Maz: Number: Repository [id number] (HP) Date:2513-34-44OM [address] [place] [address]JQ: 09/10/2017 Secondary NOT GIVENUNK [place] Insurance:SELF PAY [facility] Number: Effective Repository Date:2017-09-10 09/10/2017 Carissa Mabry Primary Carissa Mabry Brenda [id number] Insurance:HUMANA KlepperDOB: [facility] [place], MEDICARE PPOPolicy [id number] [place] [address]Qwv: Number: Repository [id number] (HP) Date:6866-10-98IZ [address] [place], [place] [address]WP: 09/10/2017 Secondary NOT GIVENUNK [place] Insurance:SELF PAY [facility] Number: Effective Repository Date:2017-09-10 09/10/2017 Carissa Mabry Primary Carissa Mabry Brenda [id number] Insurance:HUMANA KlepperDOB: [facility] [place], MEDICARE PPOPolicy [id number] [place] [address]Cfc: Number: Repository [id number] (HP) Date:9946-92-57QP [place] [address]WP: 09/10/2017 Secondary NOT GIVENUNK [place] Insurance:SELF PAY [facility] Number: Effective Repository Date:2017-09-10 09/10/2017 Carissa Mabry Primary Carissa Mabry [place] [id number] Insurance:HUMANA KlepperDOB: [facility] [place], MEDICARE PPOPolicy [id number] [place] [address] [place] [id number]: Number: Repository [id number] (HP) Date:5398-53-85MB [address] [place] [address]AI: 09/10/2017 Secondary NOT GIVENUNK Brenda Insurance:SELF PAY [facility] Number: Effective Repository Date:2017-09-10 09/10/2017 Carissa Mabry Primary Carissa Mabry [place] [id number] Insurance:HUMANA KlepperDOB: [facility] [place], MEDICARE PPOPolicy [id number] [place] [address] [place] [id number]: Number: Repository [id number] (HP) Date:1748-73-26TO [address] [place] [address]FW: 09/10/2017 Secondary NOT GIVENUNK Brenda Insurance:SELF PAY [facility] Number: Effective Repository Date:2017-09-10 09/10/2017 Carissa Mabry Primary Carissa Mabry [place] [id number] Insurance:HUMANA KlepperDOB: [facility] [place], MEDICARE PPOPolicy [id number] [place] [address]Tmu: Number: Repository [id number] (HP) Date:8472-33-39JN [address] [place], [place] [id number]: 09/10/2017 Secondary NOT GIVENUNK Brenda Insurance:SELF PAY [facility] Number: Effective Repository Date:2017-09-10 09/10/2017 Carissa Mabry Primary Carissa Mabry [place] [id number] Insurance:HUMANA KlepperDOB: [facility] [place], MEDICARE PPOPolicy [id number] [place] [address] [place] [id number]: Number: Repository [id number] (HP) Date:8302-87-21QO [address] [place] [address]GT: 09/10/2017 Secondary NOT GIVENUNK [place] Insurance:SELF PAY [facility] Number: Effective Repository Date:2017-09-10 09/10/2017 Carissa Mabry Primary Carissa Mabry Brenda [id number] Insurance:HUMANA KlepperDOB: [facility] [place], MEDICARE PPOPolicy [id number] [place] [address] [place] [id number]: Number: Repository [id number] (HP) Date:7708-39-63XP [address] [address] [place] [address]RN: 09/10/2017 Secondary NOT GIVENUNK Brenda Insurance:SELF PAY [facility] Number: Effective Repository Date:2017-09-10 09/10/2017 Carissa Mabry Primary Carissa Mabry [place] [id number] Insurance:HUMANA KlepperDOB: [facility] Christy Grajeda, MEDICARE PPOPolicy [id number] [address]Nez: Number: Repository [id number] (HP) Date:[id number] [address] [address]WZ: 09/10/2017 Secondary NOT GIVENUNK Brenda Insurance:SELF PAY [facility] Number: Effective Repository Date:2017-09-10 09/10/2017 Carissa Mabry Primary Carissa Mabry Brenda [id number] Insurance:HUMANA KlepperDOB: [facility] Christy Ayalaer, MEDICARE PPOPolicy [id number] [place] [address]Zdt: Number: Repository [id number] (HP) Date:2046-07-12QW [address] [place], [place] [address]WP: 09/10/2017 Secondary NOT GIVENUNK [place] Insurance:SELF PAY [facility] Number: Effective Repository Date:2017-09-10 09/10/2017 Carissa Mabry Primary Carissa Mabry [place] [id number] Insurance:HUMANA KlepperDOB: [facility] Christy Grajeda, MEDICARE PPOPolicy [id number] [place] [address]Cuk: Number: Repository [id number] (HP) Date:[id number] [address] [address]XT: 09/10/2017 Secondary NOT GIVENUNK Brenda Insurance:SELF PAY [facility] Number: Effective Repository Date:2017-09-10 09/10/2017 Carissa Mabry Primary Carissa Mabry [place] [id number] Insurance:HUMANA KlepperDOB: [facility] Christy Grajeda, MEDICARE PPOPolicy [id number] [place] [address]Xpk: Number: Repository [id number] (HP) Date:[id number] [address] [place] [address]EB: 09/10/2017 Secondary NOT GIVENUNK Brenda Insurance:SELF PAY [facility] Number: Effective Repository Date:2017-09-10 09/05/2017 Carissa Mabry Primary Carissa Mabry [place] [id number] Insurance:HUMANA KlepperDOB: [facility] [place] [address], [place]ARE PPOPolicy [id number] [address]Tel: Number: Repository [id number] (HP) Date:[id number] [address] [address]TB: 09/05/2017 Secondary NOT GIVENUNK Brenda Insurance:SELF PAY [facility] Number: Effective Repository Date:2017-09-05 07/10/2017 Carissa Mabry Primary Carissa Mabry [place] [id number] Insurance:HUMANA KlepperDOB: [facility] [place] [address], [place] PPOPolicy [id number] [place] [id number]: Number: Repository [id number] (HP) Date:[id number] [address] [address]GA: 07/10/2017 Secondary NOT GIVENUNK Brenda Insurance:SELF PAY [facility] Number: Effective Repository Date:2017-07-10 06/29/2017 Carissa Mabry Primary Carissa Mabry [place] [id number] Insurance:HUMANA KlepperDOB: [facility] [place] [address], [place] PPOPolicy [id number] Ville [id number]: Number: Repository [id number] (HP) Date:[id number] [address] [address]HM: 06/29/2017 Secondary NOT GIVENUNK [place] Insurance:SELF PAY [facility] Number: Effective Repository Date:2017-06-19 06/22/2017 Carissa Mabry Primary Carissa Mabry Brenda [id number] Insurance:SOCORRO Guy: [facility], [facility] PPOPolicy [id number] [address]Cue: Number: Repository [id number] (HP) Date:[id number] [address] [address], [place] [address]LN: 06/22/2017 Secondary NOT GIVENCARLOS A Gutierrez Insurance:SELF PAY [facility] Number: Effective Repository Date:2017-06-22
== END ==
PROVIDERS: Family Provider Internal Medicine; PCP Internal Medicine; Referring Provider Internal Medicine Cardiovascular Disease; Visit Provider Internal Medicine Cardiovascular Disease
DX: R06.02 Shortness of breath (principal)
CPT/HCPCS: 93017

== ENCOUNTER 2018-12-04 13:11 | Emergency (ER) | payer MEDICARE, SELFPAY ==
[2018-10-13 13:45] VITALS: BMI 33.6
[2018-12-04 13:12] VITALS: BP 101/53; PULSE 96; RESP 20; TEMP 36.8; O2SAT 95; BMI 32.5
--- NOTE | 2018-12-04 13:48 | EKG12_ITS ---
Test Reason : WEAKNESS Blood Pressure : / mmHG Vent. Rate : 084 BPM Atrial Rate : 084 BPM P-R Int : 128 ms QRS Dur : 092 ms QT Int : 366 ms P-R-T Axes : 055 038 030 degrees QTc Int : 432 ms Normal sinus rhythm Normal ECG Confirmed by MARI JOSEPH MD ([id number]), film or videotape editor ASHWIN PUCKETT ([id number]) on 12/07/2018 12:56:27 PM Referred By: CHICO Confirmed By:MARI JOSEPH MD
--- NOTE | 2018-12-04 13:48 | RAD_ITS ---
STUDY: X-RAY CHEST REASON FOR EXAM: Male, 78 years old. Fatigue and weakness. Fever. TECHNIQUE: PA and lateral views of the chest. COMPARISON: Comparison is made with prior study dated May 01, 2018. FINDINGS: EKG electrode are seen. Stable calcified pleural plaques bilaterally. Stable mild increased markings at the lung bases suggestive of scarring. No acute infiltrate is seen. There is no demonstrated pleural abnormality. Normal size heart. Normal mediastinum and mamadou. Normal visualized pulmonary arteries. There is atherosclerotic calcification of the aortic arch with tortuosity. There are diffuse degenerative changes of the visualized thoracic spine. Normal visualized ribs, clavicles, and shoulders. There is no demonstrated abnormality of the visualized soft tissue structures of the upper abdomen. RAD/Chest PA and Lateral IMPRESSION: Mild degree of increased markings at the lung bases suggestive of scarring. Bilateral calcified pleural plaques. Electronically Signed: Antonio Kahn, at 14:36 EDT , Service support ,
--- NOTE | 2018-12-04 13:53 | ED.VISSUMM ---
- ER Visit Summary Date of Service: 12/04/18 Chief Complaint: Fever History of Present Illness: The patient is a 78 M history of anemia, hypertension, aortic stenosis and prior prostate CA for which he underwent a prostatectomy. Patient states he had a fever for the last 2 days twice a day actually took at home with thermometer of 103. He denies any nausea or vomiting. He has had mild loose stools. No recent hospitalization. No dysuria. No cough, chest pain or shortness of breath. He denies any abdominal pain. He was seen earlier today at an urgent care his blood pressure wire was reportedly 92/50 or so and he sitting the emergency department. Physical Examination: Elderly male no acute distress initial blood pressure here is 101/53. Afebrile. Pulse ox 95% on room air no hypoxia. Currently he is in no distress. at bedside. HEENT exam unremarkable. Neck nontender no JVD, no lymphadenopathy. Lungs clear to auscultation bilaterally. Heart regular rhythm rate about 90. Chest wall nontender. Abdomen soft nontender. Normal bowel sounds no peritoneal signs. Extremities moves all 4. Trace edema both lower extremities. Neurologically he is awake and alert with no focal motor deficits. Test Results: Chest x-ray chronic changes with pleural plaques but no acute abnormality read by myself the radiologist. EKG sinus rhythm rate 84 no acute abnormality. No ischemia or dysrhythmia. CBC White count 10. Hemoglobin 12 which is his baseline. Plan center 43,000. No bands. Chemistry sodium 130. Gap is 6. BUN 36 creatinine 1.94 consistent with mild dehydration. Bilateral his prior creatinine was 1.5. UA negative. Lactate 0.9 and normal. Emergency Department Course and Treatment: Elderly male with a fever and reported transient hypotension. Treated with 2 L normal saline. On repeat exam patient is doing well at 1544 and 1620 p.m. I stood him up and walked him after he got almost his second liter finished. He is difficult. I did nurse get a manual blood pressure and currently is 117/70. His temperature orally and it was 98 1. In light that the patient is currently doing well. He has no fever and stable vital signs clinically looks well and prefers to be discharged home will be discharged to home blood cultures are pending and he will follow-up with his primary care physician Dr. Larios on Friday. I discussed the plan of both he and his significant other are comfortable with that. Treatment Plan: Plenty of fluids. Follow-up with his primary care physician on Friday. Return if feeling worse. Disposition: Discharge Impression: Acute fever of uncertain etiology Transient hypotension resolved post IV fluids. This note was generated with [employer] dictation software. It may contain incorrect words, spelling, and punctuation that were not noted in review of the chart prior to signing ED Disposition - Plan for ED Patient: Referrals: Lambert Larios MD [Primary Care Provider] -
[2018-12-04 14:09] LABS: Absolute Lymphocyte Count 0.51 X10^3/uL (0.83-4.51); Basophil# 0.01 X10^3/uL; Basophil% 0.1 % (0-1); Hematocrit 37.6 % (40-54); Hemoglobin 12.2 g/dL (13.0-16.5); Lymphocyte # 0.51 X10^3/ul (4.0); Lymphocyte % 4.8 % (19-41); Mean Corp Hgb Conc 32.4 g/dL (32-36); Mean Corpuscular Volume 89.3 fL (80-94); Mean Platelet Vol. 10.4 fl (6.2-12.0); Monocyte% 7.6 % (0-10); NRBC Flagged by Analyzer 0 % (0-5); Neutrophil # 9.16 X10^3/uL (2.7-7.7); Neutrophil % 86.8 % (47-70); POSITIVE DIFFERENTIAL YES; Platelet Count 143 K/mm3 (150-450); RBC Distribution Width CV 15.1 % (11.6-14.6); RBC Distribution Width SD 49.6 fl (35.1-43.9); Red Blood Count 4.21 M/mm3 (4.6-6.2); White Blood Count 10.6 K/mm3 (4.4-11.0)
[2018-12-04 14:10] LABS: Differential Indicated SCAN CRITERIA MET
[2018-12-04 14:17] LABS: Anion Gap 6 (5-15); BUN 36 mg/dL (7-18); BUN/Creat Ratio 18.6 RATIO (10-20); Calcium,Total 8.8 mg/dL (8.5-10.1); Chloride 102 mmol/L (98-107); Creatinine, Serum 1.94 mg/dL (0.70-1.30); EST Glomerular Filtration Rate 36 mL/min (>60); Est Glom Filt Rate - Afr Amer 43 mL/min (>60); Estimated Creatinine Clearance 27.41 ml/min; Glucose 139 mg/dL (74-106); Potassium 4.8 mmol/L (3.5-5.1); Sodium Level 130 mmol/L (136-145)
[2018-12-04] MEDS: 0.9% Normal Saline 1,000 ML 1000 ML IV (14:18)
[2018-12-04 14:46] LABS: Lactic Acid 0.9 mmol/L (0.4-2.0)
[2018-12-04 15:00] VITALS: BP 107/57; PULSE 76; RESP 19; O2SAT 98
[2018-12-04 15:45] LABS: Mucous, Urine 0 SEEN /hpf (<or=2+)
[2018-12-04 15:47] LABS: Color, Urine Yellow (Yellow); Glucose, Dipstick Normal (Normal); Ketone-Dipstick 5 mg/dl (Negative); Leukocyte Esterase-Dipstick 25 /ul (Negative); Nitrite-Dipstick Negative (Negative); Occult Blood-Urine Negative /ul (Negative); Protein-Dipstick 30 mg/dl (Negative); Specific Gravity, Urine 1.025 (1.002-1.030); Urine Clarity Sl. Cloudy (Clear); Urine Urobilinogen 1 mg/dl (Normal)
[2018-12-04] MEDS: 0.9% Normal Saline 1,000 ML 999 ML IV (15:48)
[2018-12-04 15:55] LABS: Urine Bilirubin Dipstick 1 mg/dL (Negative)
[2018-12-04 15:57] LABS: Bacteria 1+ /hpf (None Seen); Hyaline Cast 0-5 SEEN /lpf (0-5); Red Blood Cells-Urine 0 SEEN /hpf (0-5); Squamous Epithelial Cells - UA 0-5 SEEN /hpf (0-5); White Blood Cells 0-5 SEEN /hpf (0-5)
[2018-12-04 16:29] VITALS: BP 118/70; PULSE 75; RESP 16; TEMP 36.7
--- NOTE | 2018-12-04 16:33 | ED.DEP ---
ED Disposition - Plan for ED Patient: Disposition: Home or Assisted Living Instructions: FEBRILE ILLNESS, Uncertain Cause (Adult) Referrals: Lambert Larios MD [Primary Care Provider] - As soon as possible Additional Instructions: Follow-up with your primary care physician on Friday. Return to ER feeling worse. Plenty of fluids and rest. Hold your blood pressure medication if your systolic pressure is running below 110.
== END 2018-12-04 16:39 | disposition home or self-care (01) ==
PROVIDERS: Emergency Provider Emergency Medicine; Family Provider Internal Medicine; PCP Internal Medicine
DX: I95.9 Hypotension, unspecified (principal); R50.9 Fever, unspecified; R60.0 Localized edema; J92.9 Pleural plaque without asbestos; R19.7 Diarrhea, unspecified; D64.9 Anemia, unspecified; I10 Essential (primary) hypertension; I35.0 Nonrheumatic aortic (valve) stenosis; J45.909 Unspecified asthma, uncomplicated; K21.9 Gastro-esophageal reflux disease without esophagitis; Z85.46 Personal history of malignant neoplasm of prostate; Z79.82 Long term (current) use of aspirin; Z79.899 Other long term (current) drug therapy
CPT/HCPCS: 36415; 71046; 80048; 81001; 83605; 85025; 87040; 93005; 96360; 96361; 99284; J7030; A4216

== ENCOUNTER → 2019-03-25 12:51 | Outpatient (CLI) | payer MEDICARE, SELFPAY ==
[2018-12-22 14:46] VITALS: BMI 32.5
--- NOTE | 2019-03-25 12:55 | ECHOCS_ITS ---
Reason For Study: AORTIC STENOSIS Procedure This was a 2D Doppler, Color Flow transthoracic echocardiogram. The study was technically difficult. Contrast injection was performed. Exam performed in department. Left Ventricle Normal LV size. The estimated ejection fraction is 60 %. Unable to assess diastolic dysfunction. No regional wall motion abnormalities noted. Right Ventricle Normal RV size. Normal systolic function. Atria The left atrium is mildly enlarged. Normal right atrium. No doppler evidence for ASD. Mitral Valve There is moderate mitral annular calcification. Mild-Moderate mitral valve stenosis. Trivial mitral valve insufficiency. Tricuspid Valve There is no tricuspid stenosis. Trivial tricuspid valve insufficiency. Pulmonary artery systolic pressure is 55-60 mmHg. Aortic Valve Moderate diffuse aortic valve thickening. Mild to moderate aortic stenosis. No aortic valve insufficiency. Pulmonic Valve There is no pulmonic valvular stenosis. No pulmonic valve insufficiency. Great Vessels Normal aortic root. Pericardium/Pleural No pericardial effusion. Medication 22 gauge I.V. with prn adaptor inserted into right arm. Diluted definity 3.0ml given slow IV push to enhance endocardial definition. MMode/2D Measurements & Calculations LVIDd: 4.3 cm IVSd: 1.0 cm LVOT diam: 2.0 cm LVIDs: 3.0 cm LVPWd: 0.96 cm RVDd: 4.2 cm FS: 29.7 % LVOT area: 3.1 cm2 Ao root diam: 3.4 cm LAV(MOD-bp): 68.2 ml LVAd ap4: 35.5 cm2 LAV(MOD-bp) Indexed: 34.0 ml/m2 EDV(MOD-sp4): 121.7 ml LAV(MOD-sp2): 60.3 ml EDV(sp4-el): 129.0 ml LAV(MOD-sp4): 69.1 ml LVAs ap4: 18.8 cm2 ESV(MOD-sp4): 41.8 ml ESV(sp4-el): 43.3 ml EF(MOD-sp4): 65.7 % EF(sp4-el): 66.5 % SV(MOD-sp4): 79.9 ml SV(sp4-el): 85.8 ml LA A4 area: 23.5 cm2 LA dimension(2D): 4.2 cm RA A4 area: 15.0 cm2 Doppler Measurements & Calculations MV V2 max: 177.8 cm/sec Ao V2 max: 294.5 cm/sec LV V1 max: 120.9 cm/sec MV max P.6 mmHg Ao max P.7 mmHg LV V1 max P.9 mmHg MV V2 mean: 122.8 cm/sec Ao V2 mean: 212.4 cm/sec LV V1 mean P.4 mmHg MV mean P.7 mmHg Ao mean P.0 mmHg LV V1 mean: 87.6 cm/sec MV V2 VTI: 46.2 cm Ao V2 VTI: 59.8 cm LV V1 VTI: 26.9 cm MVA(VTI): 1.8 cm2 FABY(I,D): 1.4 cm2 FABY(V,D): 1.3 cm2 SV(LVOT): 83.9 ml PA V2 max: 116.3 cm/sec TR max francesco: 338.5 cm/sec TR max P.1 mmHg MV P1/2t-pr_phl: 67.0 msec Interpretation Summary The study was technically difficult. Diluted definity 3.0ml given slow IV push to enhance endocardial definition. The estimated ejection fraction is 60 %. Unable to assess diastolic dysfunction. Mild-Moderate mitral valve stenosis. Trivial mitral valve insufficiency. Pulmonary artery systolic pressure is 55-60 mmHg. Mild to moderate aortic stenosis. Moderate diffuse aortic valve thickening. The study was technically difficult. Ordering Physician: Giovanna Dey Referring Physician: MICHELLE BENJAMIN Performed By: Marisol Kelsey, RDCS, RVT
== END ==
PROVIDERS: Family Provider Internal Medicine; PCP Internal Medicine; Referring Provider Specialist; Visit Provider Specialist
DX: I35.0 Nonrheumatic aortic (valve) stenosis (principal)
CPT/HCPCS: 93306; Q9957; A4216; C8929

== ENCOUNTER → 2019-06-23 07:10 | Outpatient (CLI) | payer MEDICARE, SELFPAY ==
[2019-06-22 07:34] VITALS: BMI 32.8
[2019-06-23 07:42] LABS: Absolute Lymphocyte Count 0.72 X10^3/uL (0.83-4.51); Absolute Neutrophil Count 4.1 X10^3/uL (2.0-7.7); Basophil# 0.01 X10^3/uL; Basophil% 0.2 % (0-1); Eosinophils% 1.8 % (0-5); Hematocrit 35.4 % (40-54); Hemoglobin 11.3 g/dL (13.0-16.5); Lymphocyte # 0.72 X10^3/ul (4.0); Lymphocyte % 13.2 % (19-41); Mean Corp Hgb Conc 31.9 g/dL (32-36); Mean Corpuscular Hgb 28.5 pg (27.0-32.0); Mean Corpuscular Volume 89.4 fL (80-94); Monocyte# 0.47 X10^3/uL; Monocyte% 8.6 % (0-10); NRBC Flagged by Analyzer 0 % (0-5); Neutrophil # 4.12 X10^3/uL (2.7-7.7); Neutrophil % 75.3 % (47-70); Platelet Count 202 K/mm3 (150-450); RBC Distribution Width CV 14.6 % (11.6-14.6); RBC Distribution Width SD 48.5 fl (35.1-43.9); Red Blood Count 3.96 M/mm3 (4.6-6.2); White Blood Count 5.5 K/mm3 (4.4-11.0)
[2019-06-26 06:07] LABS: Alternaria tenuis <0.10 kU/L (Class 0); Ash, White <0.10 kU/L (Class 0); Aspergillus fumigatus 0.37 kU/L (Class I); Bermuda Grass <0.10 kU/L (Class 0); Birch <0.10 kU/L (Class 0); Black Walnut 0.15 kU/L (Class 0/I); Cat Hair / Dander,Stand 0.78 kU/L (Class II); Cedar, Mountain <0.10 kU/L (Class 0); Cladosporium herbarum <0.10 kU/L (Class 0); Cockroach, American <0.10 kU/L (Class 0); Cottonwood <0.10 kU/L (Class 0); D farinae Mite 5.14 kU/L (Class IV); D pteronyssinus 6.69 kU/L (Class IV); Dog Epithelia <0.10 kU/L (Class 0); Elm, American White <0.10 kU/L (Class 0); Immunoglobulin E 252 IU/mL (6-495); Maple/Box Elder <0.10 kU/L (Class 0); Mulberry, White <0.10 kU/L (Class 0); Oak, White <0.10 kU/L (Class 0); Pecan 0.28 kU/L (Class 0/I); Penicillium Notatum <0.10 kU/L (Class 0); Pigweed, Rough <0.10 kU/L (Class 0); Ragweed, Short/Common 0.21 kU/L (Class 0/I); Russian Thistle <0.10 kU/L (Class 0); Sheep Sorrel <0.10 kU/L (Class 0); Sycamore, American <0.10 kU/L (Class 0); Timothy Grass 0.33 kU/L (Class I)
[2019-06-28 11:52] LABS: Mouse Urine <0.10 kU/L (Class 0)
[2019-06-28 11:53] LABS: Immunoglobulin E 278 IU/mL (6-495)
== END ==
PROVIDERS: PCP Internal Medicine; Referring Provider Internal Medicine Critical Care Medicine; Visit Provider Internal Medicine Critical Care Medicine
DX: I25.10 Atherosclerotic heart disease of native coronary artery without angina pectoris (principal); J45.909 Unspecified asthma, uncomplicated
CPT/HCPCS: 36415; 82785; 85025; 86003

== ENCOUNTER → 2019-08-03 13:11 | Outpatient (CLI) | payer MEDICARE, SELFPAY ==
[2019-06-22 07:34] VITALS: BMI 32.8
--- NOTE | 2019-08-03 16:04 | PFTCOMP_ITS ---
COMPLETE PULMONARY FUNCTION TEST INTERPRETATION Brief HPI: Patient is an 78 year old male, currently under the care of Dr. Sánchez, who presents to [facility] for complete pulmonary function tests secondary to diagnosis of asthma. Respiratory therapist reports good effort and reproducible results. Interpretation: Forced expiration spirometry shows no large airways obstructive ventilatory defect with an FEV1 of 97% predicted. There is no significant bronchodilator response by strict ATS criteria. Spirograms are of good quality and plateau normally. The respiratory flow volume loop shows decreased expiratory flow rates at high lung volumes consistent with small airways obstruction. Lung volumes by body plethysmography show a normal total lung capacity at 5.59 L, 108% predicted. All other lung volumes are within normal limits. Diffusion capacity by carbon monoxide is at the lower limit of normal at 63% predicted. The airway resistance is normal. No previous pulmonary function tests were available for review. Impression: Grossly normal pulmonary function test. Diffusion capacity is at the lower limit of normal, so early pulmonary vascular disorder cannot be excluded.
== END ==
PROVIDERS: PCP Internal Medicine; Referring Provider Internal Medicine Critical Care Medicine; Visit Provider Internal Medicine Critical Care Medicine
DX: J45.909 Unspecified asthma, uncomplicated (principal)
CPT/HCPCS: 94060; 94726; 94729

== ENCOUNTER 2020-03-23 13:04 | Emergency (ER) | payer MEDICARE, SELFPAY ==
[2019-09-27 09:22] VITALS: BMI 32.8
[2020-03-23 13:05] VITALS: BP 97/57; PULSE 82; RESP 16; TEMP 36.6; O2SAT 96; BMI 31.6
--- NOTE | 2020-03-23 13:40 | ED.DCSUM_ITS ---
- ER Visit Summary Date of Service: 03/23/20 Chief Complaint: [Redness and swelling to the right leg] History of Present Illness: The patient is a 79 M [presents to the emergency department with redness and swelling to the right leg that he is noticed over the last several days. Patient states that he initially had a fall about a week ago where he struck his right leg against a step. Patient has been able to ambulate. He complains of increased swelling and bruising. He denies any fever, chills, or sweats. The leg was noted by visiting nurse today to be concerning for cellulitis and was referred to the ER. Patient has history of hypertension, coronary artery disease, and high cholesterol.] Physical Examination: [HEENT-PERRLA, EOMI. Cranial nerves II through XII grossly intact. TMs clear. Mucous membranes moist. No adenopathy. Cardiovascular-regular rate and rhythm without murmur or ectopy Lungs-clear to auscultation, chest wall stable without crepitus or subcu emphysema Abdomen-normoactive bowel sounds, soft, nontender, no rebound or rigidity, no peritoneal signs. Extremities-intact ?4, normal range of motion, normal pulses. Patient has diffuse erythema from just below the knee distally to the foot. Patient has ecchymosis and bruising about the foot with significant edema of the right lower extremity down to the foot. There is a area of fluctuance laterally to the distal third of the tibia which I suspect may be a infected hematoma. Neurovascularly intact distally.] Test Results: [X-rays of the right foot and ankle obtained and showed soft tissue swelling but no fractures. CBC with differential obtained showed a white count of 6.6, hemoglobin 9.7, hematocrit 32, platelets 201. Chemistries unremarkable. BUN was 52 and creatinine 1.66.] Emergency Department Course and Treatment: [IV line established. Patient was started on Unasyn 3 g IV.] I discussed case with general surgeon on-call as patient did not want to be admitted to the hospital under any circumstances. Patient states that he is awaiting his 's return from a custodial and he also has a dog at home and absolutely will not be admitted. Patient did agree to have a needle aspiration of the suspected infected hematoma. This was discussed with general surgeon on-call Dr. Cristina Macias. I attempted to aspirate the suspected hematoma and was unable to aspirate anything from it. Treatment Plan: [Patient will be started on Keflex and Bactrim and will be referred to general surgery for follow-up. If his cellulitis does not respond to antibiotic therapy may need further I&D. Patient understands risk of sepsis and disability and . Patient advised to return if increased pain, redness, swelling, fever, or condition should worsen anyway.] Disposition: [Discharged home in stable condition] Impression: [Cellulitis right leg] This note was generated with [employer] dictation software. It may contain incorrect words, spelling, and punctuation that were not noted in review of the chart prior to signing ED Disposition - Plan for ED Patient: Referrals: Lambert Larios MD [Primary Care Provider] -
--- NOTE | 2020-03-23 13:45 | RAD_ITS ---
STUDY: X-RAY - RIGHT ANKLE REASON FOR EXAM: Male, 79 years old. Rt ankle pain and swelling after near fall scattered abrasions TECHNIQUE: 3 view(s) of the ankle. COMPARISON: None. FINDINGS: Normal visualized distal tibia and fibula. Normal medial and lateral malleoli. Normal tibiotalar articulation and ankle mortise. Normal visualized talus and calcaneus. The visualized subtalar, talonavicular, calcaneocuboid and tarsal articulations are normal. Diffuse soft tissue swelling. Vascular calcification. RAD/Ankle min 3 Views IMPRESSION: Diffuse soft tissue swelling. Electronically Signed: Antonio Kahn, at 14:06 EST , Service support ,
--- NOTE | 2020-03-23 13:45 | RAD_ITS ---
STUDY: X-RAY - RIGHT FOOT CLINICAL: Male, 79 years old. Rt ankle pain and swelling after near fall scattered abrasions TECHNIQUE: 3 view(s) of the foot. COMPARISON: None. FINDINGS: Normal talus, calcaneus, and tarsal bones. Normal visualized subtalar, talonavicular, calcaneocuboid, tarsal and tarsometatarsal articulations. Normal metatarsi. There is degenerative arthrosis of the metatarsophalangeal joint of the hallux with a hallux valgus deformity. Normal tibial and fibular sesamoid bones. Normal interphalangeal joint of the great toe. Normal phalanges of the great toe. Normal second through fifth metatarsophalangeal joints. Normal interphalangeal joints and phalanges of the lesser toes. Diffuse soft tissue swelling. RAD/Foot min 3 Views IMPRESSION: Hallux valgus deformity. Diffuse soft tissue swelling. Electronically Signed: Antonio Kahn, at 14:08 EST , Service support ,
[2020-03-23 13:59] LABS: Absolute Lymphocyte Count 0.46 X10^3/uL (0.83-4.51); Absolute Neutrophil Count 5.2 X10^3/uL (2.0-7.7); Basophil# 0.01 X10^3/uL; Basophil% 0.2 % (0-1); Eosinophil# 0.08 X10^3/uL; Eosinophils% 1.2 % (0-5); Hematocrit 31.6 % (40-54); Hemoglobin 9.9 g/dL (13.0-16.5); Lymphocyte # 0.46 X10^3/ul (4.0); Mean Corp Hgb Conc 31.3 g/dL (32-36); Mean Corpuscular Hgb 28.6 pg (27.0-32.0); Mean Corpuscular Volume 91.3 fL (80-94); Mean Platelet Vol. 9.9 fl (6.2-12.0); Monocyte# 0.79 X10^3/uL; NRBC Flagged by Analyzer 0 % (0-5); Neutrophil # 5.21 X10^3/uL (2.7-7.7); Neutrophil % 78.7 % (47-70); POSITIVE DIFFERENTIAL YES; Platelet Count 201 K/mm3 (150-450); RBC Distribution Width CV 14.9 % (11.6-14.6); RBC Distribution Width SD 49.8 fl (35.1-43.9); Red Blood Count 3.46 M/mm3 (4.6-6.2); White Blood Count 6.6 K/mm3 (4.4-11.0)
[2020-03-23 14:00] LABS: Differential Indicated SCAN CRITERIA MET
[2020-03-23 14:14] LABS: Anion Gap 8 (5-15); BUN 52 mg/dL (7-18); BUN/Creat Ratio 31.3 RATIO (10-20); Calcium,Total 8.8 mg/dL (8.5-10.1); Chloride 112 mmol/L (98-107); Creatinine, Serum 1.66 mg/dL (0.70-1.30); EST Glomerular Filtration Rate 42 mL/min (>60); Est Glom Filt Rate - Afr Amer 51 mL/min (>60); Estimated Creatinine Clearance 30.36 ml/min; Glucose 92 mg/dL (74-106); Potassium 4.8 mmol/L (3.5-5.1); Sodium Level 138 mmol/L (136-145)
--- NOTE | 2020-03-23 14:54 | ED.DEP ---
ED Disposition - Plan for ED Patient: Prescriptions: Smz/Tmp Ds [Bactrim Ds] 1 tab PO BID #20 tab Prescription Printed Cephalexin [Keflex] 500 mg PO Q6 #40 cap Prescription Printed Referrals: Lambert Larios MD [Primary Care Provider] - Cristina Macias MD [STAFF PHYSICIAN] - 3-5 Days
== END 2020-03-23 15:14 | disposition home or self-care (01) ==
PROVIDERS: Emergency Provider Emergency Medicine; PCP Internal Medicine
DX: L03.115 Cellulitis of right lower limb (principal); I25.10 Atherosclerotic heart disease of native coronary artery without angina pectoris; K21.9 Gastro-esophageal reflux disease without esophagitis; E78.00 Pure hypercholesterolemia, unspecified; I10 Essential (primary) hypertension; Z79.82 Long term (current) use of aspirin
CPT/HCPCS: 73610; 73630; 80048; 83605; 85025; 96365; 99283; J7050; A4216; J0295

== ENCOUNTER → 2020-03-24 14:26 | Outpatient (CLI) | payer MEDICARE, SELFPAY ==
[2020-03-24 10:10] VITALS: BMI 31.6
== END ==
PROVIDERS: PCP Internal Medicine; Referring Provider Surgery; Visit Provider Surgery
DX: S81.801A Unspecified open wound, right lower leg, initial encounter (principal); S80.11XA Contusion of right lower leg, initial encounter; L08.9 Local infection of the skin and subcutaneous tissue, unspecified
CPT/HCPCS: 87070; 87075; 87077; 87186; 87205

== ENCOUNTER → 2020-04-17 16:08 | Outpatient (CLI) | payer MEDICARE, SELFPAY ==
[2020-04-17 12:48] VITALS: BMI 30.5
== END ==
PROVIDERS: PCP Internal Medicine; Referring Provider Physician Assistant; Visit Provider Physician Assistant
DX: L03.115 Cellulitis of right lower limb (principal); L02.415 Cutaneous abscess of right lower limb
CPT/HCPCS: 87070; 87077; 87186; 87205

== ENCOUNTER 2020-05-11 12:27 | Outpatient (RCR) | payer MEDICARE, SELFPAY ==
[2020-05-10 09:31] VITALS: BMI 29.6
[2020-05-11 12:58] LABS: Hemoglobin A1c 5.9 % (3.8-5.6)
[2020-05-11 13:00] LABS: Hemoglobin 9.6 g/dL (13.0-16.5); Mean Corpuscular Hgb 30.3 pg (27.0-32.0); Mean Corpuscular Volume 94.6 fL (80-94); Mean Platelet Vol. 11.2 fl (6.2-12.0); Platelet Count 180 K/mm3 (150-450); RBC Distribution Width CV 16.1 % (11.6-14.6); RBC Distribution Width SD 55.2 fl (35.1-43.9); Red Blood Count 3.17 M/mm3 (4.6-6.2); White Blood Count 5.4 K/mm3 (4.4-11.0)
[2020-05-11 13:04] LABS: Alanine Aminotransfer ALT/SGPT 28 U/L (16-61); Anion Gap 6 (5-15); BUN 39 mg/dL (7-18); BUN/Creat Ratio 32.5 RATIO (10-20); Calcium,Total 8.6 mg/dL (8.5-10.1); Chloride 116 mmol/L (98-107); EST Glomerular Filtration Rate 62 mL/min (>60); Est Glom Filt Rate - Afr Amer 75 mL/min (>60); Glucose 98 mg/dL (74-106); Potassium 5.7 mmol/L (3.5-5.1); Sodium Level 140 mmol/L (136-145)
== END 2020-05-11 18:00 | disposition home or self-care (01) ==
LOC: HHLAB 12:27
PROVIDERS: PCP Internal Medicine; Visit Provider Internal Medicine
DX: I10 Essential (primary) hypertension (principal); E11.9 Type 2 diabetes mellitus without complications; E78.5 Hyperlipidemia, unspecified
CPT/HCPCS: 80048; 83036; 84460; 85027

== ENCOUNTER 2020-05-16 14:00 | Outpatient (RCR) | payer MEDICARE, SELFPAY ==
[2020-04-17 12:48] VITALS: BMI 30.5
[2020-04-21 08:37] VITALS: BP 129/68; PULSE 86; RESP 18; TEMP 36.1; BMI 29.6
--- NOTE | 2020-04-21 10:46 | HP.PCM_ITS ---
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 Status: Chronic Code(s): S81.801D - Unspecified open wound, right lower leg, subsequent encounter (2) Traumatic open wound of right lower leg with infection Status: Chronic Qualifiers: Encounter type: subsequent encounter Qualified Code(s): S81.801D - Unspecified open wound, right lower leg, subsequent encounter; L08.9 - Local infection of the skin and subcutaneous tissue, unspecified Code(s): S81.801A - Unspecified open wound, right lower leg, initial encounter; L08.9 - Local infection of the skin and subcutaneous tissue, unspecified (3) Cellulitis and abscess of right leg Status: Chronic Code(s): L03.115 - Cellulitis of right lower limb; L02.415 - C utaneous abscess of right lower limb (4) Coronary heart disease Status: Chronic Qualifiers: Coronary Disease-Associated Artery/Lesion type: unspecified vessel or lesion type [place] vs. transplanted heart: unspecified whether [place] or transplanted heart Associated angina: with unspecified angina Qualified Code(s): I25.119 - Atherosclerotic heart disease of [place] coronary artery with unspecified angina pectoris Code(s): I25.10 - Atherosclerotic heart disease of [place] coronary artery without angina pectoris (5) Traumatic wound Status: Chronic (6) Asthma Status: Chronic Qualifiers: Asthma severity: unspecified severity Asthma complication type: unspecified Code(s): J45.909 - Unspecified asthma, uncomplicated (7) Hypertension Status: Chronic Qualifiers: Hypertension type: essential hypertension Qualified Code(s): I10 - Essential (primary) hypertension Code(s): I10 - Essential (primary) hypertension History of Present Illness Date of Service: 04/21/20 Chief Complaint: Traumatic injury of the right lower extremity with open wound s/p hematoma and I and D History of Wound: This is an 79-year-old male who was in his normal state of health until approximately March 16, 2020, at which time he sustained an injury to his right cota distally that occurred from bumping his leg on a step. He went to the ER on 03/23/2020 and was given IV Unasyn x 1 dose and the ER physician wanted him to stay for surgical debridement but he refused and saw general surgery as an outpatient on 03/24/2020 where an I and D and hematoma evacuation was performed as an outpatient by Dr. Macias in her office. Clot was removed and a culture taken. He was given Keflex and Bactrim DS and the wound was packed with gauze packing. It was followed for 2 weeks and was improving. On 04/17/2020, his home health aid saw his leg and suggested that he see a physician as his cota area was erythematous, warm and dswollen. [facility] and an xray and wound culture were completed and he was started on Clindamycin and referred to the wound center for additional treatment. He has been using gauze to dress his wound. He also bumped his upper cota of his right leg on a box a few days ago and it is bruised and draining as well. He does have compression stockings to use for edema but has not been wearing them and he has had increased edema to his right leg. He denies any systemic signs of infection such as fever, chills, nausea, vomiting, fatigue. He has had venous studies showing no venous disease in October 2017 and arterial studies showing no arterial disease in 2016. 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) Traumatic open wound of right lower leg with infection (Chronic) Cellulitis and abscess of right leg (Chronic) Coronary heart disease (Chronic) HLD (hyperlipidemia) (Chronic) Essential (primary) hypertension (Chronic) Aortic stenosis (Chronic) Chronic asthma (Chronic) Pulmonary arterial hypertension (Chronic) Obesity (Chronic) Open wound (Chronic) Open wound of left lower leg (Chronic) Traumatic open wound of left lower leg (Chronic) Leg swelling (Chronic) Traumatic wound (Chronic) Open wound of left lower extremity (Chronic) History of pulmonary embolism (Chronic) Iron deficiency anemia (Chronic) Pulmonary nodule (Chronic) HLD (hyperlipidemia) (Chronic) Diverticulosis (Chronic) Asthma (Chronic) Hypertension (Chronic) Osteoarthritis (Chronic) History of prostate cancer (Chronic) Allergic rhinitis (Chronic) Rheumatoid arthritis (Chronic) Pleural plaque (Chronic) Macular degeneration (Chronic) GERD (gastroesophageal reflux disease) (Chronic) Surgical History: - - Umbilical hernia repair, appendectomy, bilateral carpal tunnel surgery, Prostatectomy, Cataract surgery, L lens implant, L knee surgery followed by LTKR, L shoulder surgery, left total hip replacement. Allergies/Adverse Reactions: Allergies indomethacin [From Indocin] Allergy (Verified 04/17/20 12:49) Itching indomethacin sodium [From Indocin] Allergy (Verified 04/17/20 12:49) Itching oxycodone HCl [From Percocet] Allergy (Verified 04/17/20 12:49) Itching Home Medications: Ambulatory Orders Medication Instructions Recorded Atorvastatin Calcium [Lipitor] 10 mg PO QHS 05/01/18 Lisinopril [Zestril] 20 mg PO DAILY 05/01/18 Nitroglycerin 0.4 mg SL PRN PRN 05/01/18 Omeprazole [Prilosec] 20 mg PO DAILY 05/01/18 Polyethylene Glycol 3350 [Miralax] 17 gm PO DAILY PRN PRN 05/01/18 aspirin 81 mg tablet,delayed 81 mg PO DAILY 10/13/18 release chlorthalidone 25 mg tablet 25 mg PO DAILY 10/13/18 montelukast 10 mg tablet 10 mg PO QPM 10/13/18 Acetaminophen [Tylenol Extra 1,000 mg PO BID PRN PRN 12/04/18 Strength] Epinephrine [Epipen] 0.3 mg IJ PRN PRN 12/04/18 Fluticasone 0.05% [Flonase Nasal 1 spray NASAL BID 12/04/18 [place]] Loperamide HCl [Imodium A-D] 2 mg PO DAILY PRN PRN 12/04/18 multivitamin 1 tab PO QAM 04/19/19 albuterol sulfate 90 mcg/actuation 2 puff INHALATION Q4H PRN PRN #1 ea 06/23/19 aerosol inhaler fluticasone propionate 230 2 puff INHALATION BID #1 device 06/23/19 mcg-salmeterol 21 mcg/actuation HFA inhaler tiotropium bromide 2.5 2 puff INHALATION QDAY #1 ea 06/23/19 mcg/actuation mist for inhalation albuterol sulfate 2.5 mg INHALATION Q6H #180 ml 08/16/19 Sertraline HCl [Zoloft] 200 mg PO DAILY 03/23/20 clindamycin HCl 300 mg capsule 300 mg PO TID #30 cap 04/17/20 - Family History Sibling Family History: Family History (Last Updated 04/17/20 @ 12:53 by Chasidy Pedraza) Father Heart disease Sister Diabetes Mother Breast cancer Diabetes, Renal Disease, - - Patient's father at the age of 76 with history of colon cancer myocardial infarction. Patient's mother at age of 86 with a history of breast cancer. Maternal Family History: Family History (Last Updated 04/17/20 @ 12:53 by Chasidy Pedraza) Father Heart disease Sister Diabetes Mother Breast cancer Cancer Paternal Family History: Family History (Last Updated 04/17/20 @ 12:53 by Chasidy Pedraza) Father Heart disease Sister Diabetes Mother Breast cancer Cancer Lives: Spouse/ Significant Other Smoking Status: Never smoker Tobacco Use: Non-smoker Alcohol: None Drugs: None Review of Systems Constitutional: Denies: Chills, Fever, Weight Change Eyes: Denies: Double vision, Pain HEENT: Reports: Difficulty Hearing. Denies: Dysphasia, Ear Pain, Nasal bleeding Cardiovascular: Reports: Edema. Denies: Chest Pain, Palpitations Respiratory: Denies: Cough, Shortness of Breath Gastrointestinal: Denies: Diarrhea, Nausea, Vomiting Genitourinary: Denies: Dysuria, Hematuria Musculoskeletal: Reports: Joint Pain Skin: Reports: Wounds Neurological: Denies: Numbness, Tingling Endocrine: Denies: Heat/ Cold Intolerance, Polydipsia, Polyuria Hematologic/ Lymphatic: Reports: Easy Bruising, Hx of blood clot. Denies: Easy Bleeding - Physical Exam Vital Signs Temp Pulse Resp BP 97 F L 86 18 129/68 H 04/21/20 08:37 04/21/20 08:37 04/21/20 08:37 04/21/20 08:37 General: Alert, Oriented x3, Cooperative, No apparent distress HEENT: Atraumatic, Normocephalic Oral: Moist Mucosa Neck: Supple Lungs: Clear to auscultation Cardiovascular: Regular rate, Regular Rhythm Abdomen: Soft, Non Tender Extremities: Edema Skin: Ulcer/ Wound Wound Measurements and Assessment WC - Nurse 1 - General Ulcer Measurement Start: 04/21/20 08:22 Freq: Status: Active Protocol: Activity Type Activity Date Activity User E-Sign Co-Sign Detail Recorded Client Recorded Date Recorded By Document 04/21/20 08:37 RB [id number] 04/21/20 08:50 RB 04/21/20 08:37 Wound Center Nurse 1 [Ulcer Assessment] 10. RLE inferior -Combined with other wound No -Current Size (cm) - Length 1.7 -Current Size (cm) - Width 1.8 -Current Size (cm) - Depth 0.4 -Total Square Cm 3.06 -Tunneling No -Undermining/Tunneling No -Circular Undermining No -Exudate Amt Medium -Exudate Type Serosanguineous -Wound Margin Flat & Intact -Granulation Amt Medium (34-66%) -Granulation Quality [place] -Slough/Fibrin Yes -Necrosis Amt Small (1-33%) -Necrotic Tissue Type Adherent Slough -Structure Exposed N/A -Texture (Karin-wound Skin Appearance) Assessed, Scarring -Moisture (Karin-wound Skin Appearance Assessed ) -Color (Karin-wound Skin Appearance) Assessed -Temperature (Karin-wound Skin No Abnormality Appearance) (Pt Warm) -Tenderness on Palpation (Karin-wound No Skin Appearance) -Ulcer Cleansing Wound Cleanser -Foul Odor after Cleansing No -Anesthetic Used 4% Lidocaine Solution 9. RLE superior -Combined with other wound No -Current Size (cm) - Length 2.7 -Current Size (cm) - Width 2.1 -Current Size (cm) - Depth 0.1 -Total Square Cm 5.67 -Tunneling No -Undermining/Tunneling No -Circular Undermining No -Exudate Amt Medium -Exudate Type Serosanguineous -Wound Margin Flat & Intact -Granulation Amt Medium (34-66%) -Granulation Quality [place] -Slough/Fibrin Yes -Necrosis Amt Small (1-33%) -Necrotic Tissue Type Adherent Slough -Structure Exposed N/A -Texture (Karin-wound Skin Appearance) Scarring -Moisture (Karin-wound Skin Appearance Assessed ) -Color (Karin-wound Skin Appearance) Assessed -Temperature (Karin-wound Skin No Abnormality Appearance) (Pt Warm) -Tenderness on Palpation (Karin-wound No Skin Appearance) -Ulcer Cleansing Wound Cleanser -Foul Odor after Cleansing No -Anesthetic Used 4% Lidocaine Solution [Edema Assessment] -Lower Limb Edema Present Yes -Right Calf (cm) 40.9 -Right Ankle (cm) 23.8 -Left Calf (cm) 43 -Left Ankle (cm) 34.7 WC - Nurse 2 - General Ulcer CM Notes Start: 04/21/20 08:22 Freq: Status: Active Protocol: Activity Type Activity Date Activity User E-Sign Co-Sign Detail Recorded Client Recorded Date Recorded By Document 04/21/20 08:56 MW [id number] 04/21/20 09:23 MW 04/21/20 08:56 Wound Center Nurse 2 [Procedure/Treatment] 10. RLE inferior -Time 08:56 -Correct Patient Yes -Correct Side, Site, Position Yes -Correct Procedure Yes -Procedure Performed Yes -Type of Procedure Debridement -Clinical Debridement Subcutaneous -Tissue Removed Subcutaneous -Post Debridement (cm) - Length 1.9 -Post Debridement (cm) - Width 2.1 -Post Debridement (cm) - Depth 0.5 -Total Square (Post) (cm) 3.99 -Area of Debridement (cm) - Length 1.9 -Area of Debridement (cm) - Width 2.1 -Total Square (Area) (cm) 3.99 -Tunneling No -Undermining/Tunneling No -Circular Undermining No -Wound/Ulcer Outcome Not Healed -Ulcer Cleansing Rinsed/ Irrigated with Saline -Foul Odor after Cleansing No -Bioengineered Tissue No -Bleeding Controlled with Pressure -Offloading No -Treatment Response Procedure Tolerated Well -Debridement - Subq, 1st 20sq cm Yes 9. RLE superior -Time 09:03 -Correct Patient Yes -Correct Side, Site, Position Yes -Correct Procedure Yes -Procedure Performed Yes -Type of Procedure Debridement -Clinical Debridement Subcutaneous -Tissue Removed Subcutaneous -Post Debridement (cm) - Length 2.8 -Post Debridement (cm) - Width 2.0 -Post Debridement (cm) - Depth 0.3 -Total Square (Post) (cm) 5.60 -Area of Debridement (cm) - Length 2.8 -Area of Debridement (cm) - Width 2.0 -Total Square (Area) (cm) 5.60 -Tunneling No -Undermining/Tunneling No -Circular Undermining No -Wound/Ulcer Outcome Not Healed -Ulcer Cleansing Rinsed/ Irrigated with Saline -Foul Odor after Cleansing No -Bioengineered Tissue No -Bleeding Controlled with Pressure -Offloading No -Debridement - Subq, 1st 20sq cm No [See Physician Procedure note for Specifics] Pain Scale: 0-10 Numeric [Pain] -Is Patient Pain Free? Yes WC - Nurse 3 - General Ulcer D/C NN Start: 04/21/20 08:22 Freq: Status: Active Protocol: Activity Type Activity Date Activity User E-Sign Co-Sign Detail Recorded Client Recorded Date Recorded By Document 04/21/20 09:39 [facility] [id number] 04/21/20 09:40 [facility] 04/21/20 09:39 Wound Care Nurse 3 [Wound Dressing] 10. RLE inferior -Ulcer Cleansing Rinsed/ Irrigated with Saline -Foul Odor after Cleansing No -Primary Dressing Applied Aquacel AG 4x4 -Primary Dressing Covered/Secured Dry Gauze & with Roll Gauze, Secured with Tape -Aquacel AG 4x4 1 9. RLE superior -Ulcer Cleansing Rinsed/ Irrigated with Saline -Foul Odor after Cleansing No -Primary Dressing Applied Aquacel AG 4x4 -Primary Dressing Covered/Secured Dry Gauze & with Roll Gauze, Secured with Tape -Aquacel AG 4x4 0 [Compression Applied] Right -Compression Wrap Tushar Wrap [Post Procedure Tolerated] -Treatment Response Procedure Tolerated Well Pain Scale: 0-10 Numeric [Pain] -Is Patient Pain Free? Yes WC - Visit Discharge [Visit Discharge Information] -Discharge Condition Stable -Ambulatory Status Ambulatory -Transportation Private Auto [Facility Notification] -Facility Type Home Health Psych/Mental Status: Normal Affect, Appropriate Debridement Note Post-Debridement Measurements/Treatment WC - Nurse 2 - General Ulcer CM Notes Start: 04/21/20 08:22 Freq: Status: Active Protocol: Activity Type Activity Date Activity User E-Sign Co-Sign Detail Recorded Client Recorded Date Recorded By Document 04/21/20 08:56 MW [id number] 04/21/20 09:23 MW 04/21/20 08:56 Wound Center Nurse 2 10. RLE inferior -Time 08:56 -Correct Patient Yes -Correct Side, Site, Position Yes -Correct Procedure Yes -Procedure Performed Yes -Type of Procedure Debridement -Clinical Debridement Subcutaneous -Tissue Removed Subcutaneous -Post Debridement (cm) - Length 1.9 -Post Debridement (cm) - Width 2.1 -Post Debridement (cm) - Depth 0.5 -Total Square (Post) (cm) 3.99 -Area of Debridement (cm) - Length 1.9 -Area of Debridement (cm) - Width 2.1 -Total Square (Area) (cm) 3.99 -Tunneling No -Undermining/Tunneling No -Circular Undermining No -Wound/Ulcer Outcome Not Healed -Ulcer Cleansing Rinsed/ Irrigated with Saline -Foul Odor after Cleansing No -Bioengineered Tissue No -Bleeding Controlled with Pressure -Offloading No -Treatment Response Procedure Tolerated Well -Debridement - Subq, 1st 20sq cm Yes 9. RLE superior -Time 09:03 -Correct Patient Yes -Correct Side, Site, Position Yes -Correct Procedure Yes -Procedure Performed Yes -Type of Procedure Debridement -Clinical Debridement Subcutaneous -Tissue Removed Subcutaneous -Post Debridement (cm) - Length 2.8 -Post Debridement (cm) - Width 2.0 -Post Debridement (cm) - Depth 0.3 -Total Square (Post) (cm) 5.60 -Area of Debridement (cm) - Length 2.8 -Area of Debridement (cm) - Width 2.0 -Total Square (Area) (cm) 5.60 -Tunneling No -Undermining/Tunneling No -Circular Undermining No -Wound/Ulcer Outcome Not Healed -Ulcer Cleansing Rinsed/ Irrigated with Saline -Foul Odor after Cleansing No -Bioengineered Tissue No -Bleeding Controlled with Pressure -Offloading No -Debridement - Subq, 1st 20sq cm No Pain Scale: 0-10 Numeric Is Patient Pain Free? Yes - Nurse 3 - General Ulcer D/C NN Start: 04/21/20 08:22 Freq: Status: Active Protocol: Activity Type Activity Date Activity User E-Sign Co-Sign Detail Recorded Client Recorded Date Recorded By Document 04/21/20 09:39 [facility] [id number] 04/21/20 09:40 [facility] 04/21/20 09:39 Wound Care Nurse 3 10. RLE inferior -Ulcer Cleansing Rinsed/ Irrigated with Saline -Foul Odor after Cleansing No -Primary Dressing Applied Aquacel AG 4x4 -Primary Dressing Covered/Secured with Dry Gauze & Roll Gauze, Secured with Tape -Aquacel AG 4x4 1 9. RLE superior -Ulcer Cleansing Rinsed/ Irrigated with Saline -Foul Odor after Cleansing No -Primary Dressing Applied Aquacel AG 4x4 -Primary Dressing Covered/Secured with Dry Gauze & Roll Gauze, Secured with Tape -Aquacel AG 4x4 0 Right -Compression Wrap Tushar Wrap Treatment Response Procedure Tolerated Well Pain Scale: 0-10 Numeric Is Patient Pain Free? Yes - Visit Discharge Discharge Condition Stable Ambulatory Status Ambulatory Transportation Private [facility] Facility Type Home Health Wound debrided: Right LE inferior Laterality: Right Type of Debridement: Excisional debridement Anesthesia Used: 4% Lidocaine Solution, 5% Lidocaine Gel, Cetacaine Depth: Down to and including healthy tissue, in the subcutaneous layer, to muscle Percentage of wound debrided: 100 Instrument Used: 7mm curette Tissue Removed: Yellow slough, devitalized tissue Severity: Fat Layer Exposed Amount of bleeding with debridement: Mild Bleeding Controlled with: Compression and gauze Patient tolerated procedure well - Additional Wound Wound debrided: Right LE superior Laterality: Right Type of Debridement: Excisional debridement Anesthesia Used: 4% Lidocaine Solution, 5% Lidocaine Gel, Cetacaine Depth: Down to and including healthy tissue, in the subcutaneous layer Percentage of wound debrided: 100 Instrument Used: 7mm curette Tissue Removed: Yellow slough, devitalized tissue Severity: Fat Layer Exposed Amount of bleeding with debridement: Mild Bleeding Controlled with: Compression and gauze Patient tolerated procedure: Patient tolerated procedure well Assessment/Plan Active Problems (Last Updated 04/17/20 @ 12:52 by Chasidy Pedraza) Traumatic open wound of right lower leg with delayed healing (Chronic) Traumatic open wound of right lower leg with infection (Chronic) Cellulitis and abscess of right leg (Chronic) Coronary heart disease (Chronic) Traumatic wound (Chronic) Asthma (Chronic) Hypertension (Chronic) Assessment: right lower extremity wounds due to hematoma from trauma - hitting step/box Plan: [place]'s wounds were evaluated and debrided today. Necrotic tissue and clotted blood removed from both wounds. There is a slight odor. Although he is on Clindamycin which would cover most anaerobic bacteria due to the lengthy time he has had these wounds and the slight odor, Flagyl was added for better anaerobic coverage. Will dress his wounds with Aquacel Ag daily to every other day for heavy drainage. Cover with gauze and ABD. Due to the depth and undermining of the inferior wound as well as heavy drainage, he would benefit from application and use of a SNAP vac wound vac to heal his wound more quickly. This will be applied for approval to use through his insurance company. He is homebound, does not drive and relies on hospital transportation or others to take him to appointments. Home Health will be consulted to assist him in doing dressing changes. Will use TUSHAR bandages for compression. Patient has been advised to elevate his lower extremities for the long-term, to minimize swelling and edema. Encouraged increase protein intake to aid in wound healing. Labs were reviewed from 03/23/2020 and show mild anemia, normal protein and mild renal insufficiency (GFR 51) and normal glucose. It may be beneficial to repeat A1C or request labs from his PCP. In 2018, he had an elevated A1C of 7.7%. Vascular testing in 2018 showed no venous insufficiency and arterial studies in 2017 did not show any arterial disease. Xray of his right LE 04/17/2020 was normal without any evidence for underlying fracture or bone disease. F/U in 1 week or sooner if needed.
[2020-04-28 08:13] VITALS: BP 129/62; PULSE 91; RESP 18; TEMP 36.7; BMI 29.6
--- NOTE | 2020-04-28 13:48 | PN.PCM_ITS ---
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 Status: Chronic Code(s): S81.801D - Unspecified open wound, right lower leg, subsequent encounter (2) Traumatic open wound of right lower leg with infection Status: Chronic Qualifiers: Encounter type: subsequent encounter Qualified Code(s): S81.801D - Unspecified open wound, right lower leg, subsequent encounter; L08.9 - Local infection of the skin and subcutaneous tissue, unspecified Code(s): S81.801A - Unspecified open wound, right lower leg, initial encounter; L08.9 - Local infection of the skin and subcutaneous tissue, unspecified (3) Cellulitis and abscess of right leg Status: Chronic Code(s): L03.115 - Cellulitis of right lower limb; L02.415 - C utaneous abscess of right lower limb (4) Coronary heart disease Status: Chronic Qualifiers: Coronary Disease-Associated Artery/Lesion type: unspecified vessel or lesion type [place] vs. transplanted heart: unspecified whether [place] or transplanted heart Associated angina: with unspecified angina Qualified Code(s): I25.119 - Atherosclerotic heart disease of [place] coronary artery with unspecified angina pectoris Code(s): I25.10 - Atherosclerotic heart disease of [place] coronary artery without angina pectoris (5) Traumatic wound Status: Chronic (6) Asthma Status: Chronic Qualifiers: Asthma severity: unspecified severity Asthma complication type: unspecified Code(s): J45.909 - Unspecified asthma, uncomplicated (7) Hypertension Status: Chronic Qualifiers: Hypertension type: essential hypertension Qualified Code(s): I10 - Essential (primary) hypertension Code(s): I10 - Essential (primary) hypertension Type of Wound Date of Service: 04/28/20 Chief Complaint: Traumatic injury of the right lower extremity with open wound s/p hematoma and I and D History of Wound: This is an 79-year-old male who was in his normal state of health until approximately March 16, 2020, at which time he sustained an injury to his right cota distally that occurred from bumping his leg on a step. He went to the ER on 03/23/2020 and was given IV Unasyn x 1 dose and the ER physician wanted him to stay for surgical debridement but he refused and saw general surgery as an outpatient on 03/24/2020 where an I and D and hematoma evacuation was performed as an outpatient by Dr. Macias in her office. Clot was removed and a culture taken. He was given Keflex and Bactrim DS and the wound was packed with gauze packing. It was followed for 2 weeks and was improving. On 04/17/2020, his home health aid saw his leg and suggested that he see a physician as his cota area was erythematous, warm and dswollen. [facility] and an xray and wound culture were completed and he was started on Clindamycin and referred to the wound center for additional treatment. He has been using gauze to dress his wound. He also bumped his upper cota of his right leg on a box a few days ago and it is bruised and draining as well. He does have compression stockings to use for edema but has not been wearing them and he has had increased edema to his right leg. He denies any systemic signs of infection such as fever, chills, nausea, vomiting, fatigue. He has had venous studies showing no venous disease in October 2017 and arterial studies showing no arterial disease in 2016. Progress of Wound: [place] is here for follow up of right cota and right lateral lower leg wound s/p hematoma evacuation/I and D. He tolerated treatment. He has been approved for Snap Vac treatment. He denies any fever, chills, odor, pain, increased drainage. - Physical Exam Vital Signs Temp Pulse Resp BP 98.1 F 91 18 129/62 H 04/28/20 08:13 04/28/20 08:13 04/28/20 08:13 04/28/20 08:13 General: Alert, Oriented x3, Cooperative, No apparent distress HEENT: Atraumatic, Normocephalic Oral: Moist Mucosa Cardiovascular: Regular rate, Regular Rhythm Abdomen: Soft, Non Tender Extremities: Capillary Refill Less than 3 Seconds, Edema Skin: Ulcer/ Wound Wound Measurements and Assessment WC - Nurse 1 - General Ulcer Measurement Start: 04/21/20 08:22 Freq: Status: Active Protocol: Activity Type Activity Date Activity User E-Sign Co-Sign Detail Recorded Client Recorded Date Recorded By Document 04/28/20 08:13 [facility] [id number] 04/28/20 08:21 BMF 04/28/20 08:13 Wound Center Nurse 1 [Ulcer Assessment] 10. RLE inferior -Combined with other wound No -Current Size (cm) - Length 2.5 -Current Size (cm) - Width 1.7 -Current Size (cm) - Depth 0.4 -Total Square Cm 4.25 -Photo Taken No -Epithelialization Small 1-33% -Tunneling No -Undermining/Tunneling No -Circular Undermining No -Exudate Amt Medium -Exudate Type Serosanguineous -Wound Margin Distinct, Outline Attached -Granulation Amt Small (1-33%) -Granulation Quality Red -Slough/Fibrin Yes -Necrosis Amt Medium (34-66%) -Necrotic Tissue Type Adherent Slough -Texture (Karin-wound Skin Appearance) Assessed, Scarring -Moisture (Karin-wound Skin Appearance Assessed,Dry/ ) Scaly -Color (Karin-wound Skin Appearance) Assessed -Temperature (Karin-wound Skin No Abnormality Appearance) (Pt Warm) -Tenderness on Palpation (Karin-wound No Skin Appearance) -Ulcer Cleansing Rinsed/ Irrigated with Saline -Foul Odor after Cleansing No -Anesthetic Used 4% Lidocaine Solution 9. RLE superior -Combined with other wound No -Current Size (cm) - Length 3.6 -Current Size (cm) - Width 1.5 -Current Size (cm) - Depth 0.1 -Total Square Cm 5.40 -Photo Taken No -Epithelialization None Present -Tunneling No -Undermining/Tunneling No -Circular Undermining No -Exudate Amt Small -Exudate Type Serosanguineous -Wound Margin Distinct, Outline Attached -Granulation Amt Small (1-33%) -Granulation Quality Red -Slough/Fibrin Yes -Necrosis Amt Large (67-100%) -Necrotic Tissue Type Eschar -Texture (Karin-wound Skin Appearance) Assessed, Scarring -Moisture (Karin-wound Skin Appearance Assessed,Dry/ ) Scaly -Color (Karin-wound Skin Appearance) Assessed -Temperature (Karin-wound Skin No Abnormality Appearance) (Pt Warm) -Tenderness on Palpation (Karin-wound Yes Skin Appearance) -Ulcer Cleansing Rinsed/ Irrigated with Saline -Foul Odor after Cleansing No -Anesthetic Used 4% Lidocaine Solution [Edema Assessment] -Lower Limb Edema Present Yes -Right Calf (cm) 40.4 -Right Ankle (cm) 22.8 WC - Nurse 2 - General Ulcer CM Notes Start: 04/21/20 08:22 Freq: Status: Active Protocol: Activity Type Activity Date Activity User E-Sign Co-Sign Detail Recorded Client Recorded Date Recorded By Document 04/28/20 08:39 MW [id number] 04/28/20 08:52 MW 04/28/20 08:39 Wound Center Nurse 2 [Procedure/Treatment] 10. RLE inferior -Time 08:39 -Correct Patient Yes -Correct Side, Site, Position Yes -Correct Procedure Yes -Procedure Performed Yes -Type of Procedure Debridement -Clinical Debridement Subcutaneous -Tissue Removed Subcutaneous -Post Debridement (cm) - Length 2.4 -Post Debridement (cm) - Width 1.8 -Post Debridement (cm) - Depth 0.4 -Total Square (Post) (cm) 4.32 -Area of Debridement (cm) - Length 2.4 -Area of Debridement (cm) - Width 1.8 -Total Square (Area) (cm) 4.32 -Tunneling No -Undermining/Tunneling No -Undermining/Tunneling Starts (O' 3 clock) -Undermining/Tunneling Ends (O'clock) 4 -Maximum Distance (cm) 1.0 -Undermining/Tunneling Starts #2 (O' 8 clock) -Undermining/Tunneling Ends #2 (O' 9 clock) -Maximum Distance #2 (cm) 1.0 -Circular Undermining No -Wound/Ulcer Outcome Not Healed -Ulcer Cleansing Rinsed/ Irrigated with Saline -Foul Odor after Cleansing No -Bioengineered Tissue No -Bleeding Controlled with Pressure -Offloading No -Treatment Response Procedure Tolerated Well -Debridement - Subq, 1st 20sq cm Yes 9. RLE superior -Time 08:39 -Correct Patient Yes -Correct Side, Site, Position Yes -Correct Procedure Yes -Procedure Performed Yes -Type of Procedure Debridement -Clinical Debridement Subcutaneous -Tissue Removed Subcutaneous -Post Debridement (cm) - Length 3.4 -Post Debridement (cm) - Width 1.7 -Post Debridement (cm) - Depth 0.2 -Total Square (Post) (cm) 5.78 -Area of Debridement (cm) - Length 3.4 -Area of Debridement (cm) - Width 1.7 -Total Square (Area) (cm) 5.78 -Tunneling No -Undermining/Tunneling No -Circular Undermining No -Wound/Ulcer Outcome Not Healed -Ulcer Cleansing Rinsed/ Irrigated with Saline -Foul Odor after Cleansing No -Bioengineered Tissue No -Bleeding Controlled with Pressure -Offloading No -Treatment Response Procedure Tolerated Well -Debridement - Subq, 1st 20sq cm No [See Physician Procedure note for Specifics] Pain Scale: 0-10 Numeric [Pain] -Is Patient Pain Free? Yes WC - Nurse 3 - General Ulcer D/C NN Start: 04/21/20 08:22 Freq: Status: Active Protocol: Activity Type Activity Date Activity User E-Sign Co-Sign Detail Recorded Client Recorded Date Recorded By Document 04/28/20 08:59 MW [id number] 04/28/20 09:04 MW 04/28/20 08:59 Wound Care Nurse 3 [Wound Dressing] 10. RLE inferior -Ulcer Cleansing Rinsed/ Irrigated with Saline -Foul Odor after Cleansing No -Negative Pressure Wound Therapy N/A -Primary Dressing Applied NonAdherent Contact Layer, Promogran -Primary Dressing Covered/Secured Dry Gauze & with Roll Gauze, Secured with Tape -Promogran 1 9. RLE superior -Ulcer Cleansing Rinsed/ Irrigated with Saline -Negative Pressure Wound Therapy Start -Setting (mmHg) 125 -Negative Pressure is Continuous -Other Covering snap vac -NPWT Application Charge ($) NPWT </= 50 sq cm [Compression Applied] Right -Lotion applied to leg before No compression wrap -Compression Wrap Tushar Wrap [Post Procedure Tolerated] -Treatment Response Procedure Tolerated Well Pain Scale: 0-10 Numeric [Pain] -Is Patient Pain Free? Yes Teaching: Wound Center [Wound Center Education] (Items with an * have Printed Materials Available- Please identify what is given to patient under the Teaching materials given to patient and caregiver Section. Control Swelling with Leg Elevation -Person Taught Patient -Teaching Method Discussion -Response to teaching Verbalize understanding - Visit Discharge [Visit Discharge Information] -Discharge Condition Stable -Ambulatory Status Ambulatory -Transportation Private Auto -Accompanied by self -Medication Reconcilliation completed No & provided to patient/care provider -Clinical Summary of Care Provided Yes Neurological: Cranial nerves II-XII grossly intact Psych/Mental Status: Normal Affect, Appropriate Debridement Note Post-Debridement Measurements/Treatment WC - Nurse 2 - General Ulcer CM Notes Start: 04/21/20 08:22 Freq: Status: Active Protocol: Activity Type Activity Date Activity User E-Sign Co-Sign Detail Recorded Client Recorded Date Recorded By Document 04/21/20 08:56 MW [id number] 04/21/20 09:23 MW Document 04/28/20 08:39 MW [id number] 04/28/20 08:52 MW 04/21/20 04/28/20 08:56 08:39 Wound Center Nurse 2 10. RLE inferior -Time 08:56 08:39 -Correct Patient Yes Yes -Correct Side, Site, Position Yes Yes -Correct Procedure Yes Yes -Procedure Performed Yes Yes -Type of Procedure Debridement Debridement -Clinical Debridement Subcutaneous Subcutaneous -Tissue Removed Subcutaneous Subcutaneous -Post Debridement (cm) - Length 1.9 2.4 -Post Debridement (cm) - Width 2.1 1.8 -Post Debridement (cm) - Depth 0.5 0.4 -Total Square (Post) (cm) 3.99 4.32 -Area of Debridement (cm) - Length 1.9 2.4 -Area of Debridement (cm) - Width 2.1 1.8 -Total Square (Area) (cm) 3.99 4.32 -Tunneling No No -Undermining/Tunneling No No -Undermining/Tunneling Starts (O'clock 3 ) -Undermining/Tunneling Ends (O'clock) 4 -Maximum Distance (cm) 1.0 -Undermining/Tunneling Starts #2 (O' 8 clock) -Undermining/Tunneling Ends #2 (O' 9 clock) -Maximum Distance #2 (cm) 1.0 -Circular Undermining No No -Wound/Ulcer Outcome Not Healed Not Healed -Ulcer Cleansing Rinsed/ Rinsed/ Irrigated with Irrigated with Saline Saline -Foul Odor after Cleansing No No -Bioengineered Tissue No No -Bleeding Controlled with Pressure Pressure -Offloading No No -Treatment Response Procedure Procedure Tolerated Well Tolerated Well -Debridement - Subq, 1st 20sq cm Yes Yes 9. RLE superior -Time 09:03 08:39 -Correct Patient Yes Yes -Correct Side, Site, Position Yes Yes -Correct Procedure Yes Yes -Procedure Performed Yes Yes -Type of Procedure Debridement Debridement -Clinical Debridement Subcutaneous Subcutaneous -Tissue Removed Subcutaneous Subcutaneous -Post Debridement (cm) - Length 2.8 3.4 -Post Debridement (cm) - Width 2.0 1.7 -Post Debridement (cm) - Depth 0.3 0.2 -Total Square (Post) (cm) 5.60 5.78 -Area of Debridement (cm) - Length 2.8 3.4 -Area of Debridement (cm) - Width 2.0 1.7 -Total Square (Area) (cm) 5.60 5.78 -Tunneling No No -Undermining/Tunneling No No -Circular Undermining No No -Wound/Ulcer Outcome Not Healed Not Healed -Ulcer Cleansing Rinsed/ Rinsed/ Irrigated with Irrigated with Saline Saline -Foul Odor after Cleansing No No -Bioengineered Tissue No No -Bleeding Controlled with Pressure Pressure -Offloading No No -Treatment Response Procedure Tolerated Well -Debridement - Subq, 1st 20sq cm No No Pain Scale: 0-10 Numeric Is Patient Pain Free? Yes Yes WC - Nurse 3 - General Ulcer D/C NN Start: 04/21/20 08:22 Freq: Status: Active Protocol: Activity Type Activity Date Activity User E-Sign Co-Sign Detail Recorded Client Recorded Date Recorded By Document 04/21/20 09:39 [facility] [id number] 04/21/20 09:40 [facility] Document 04/28/20 08:59 MW [id number] 04/28/20 09:04 MW 04/21/20 04/28/20 09:39 08:59 Wound Care Nurse 3 10. RLE inferior -Ulcer Cleansing Rinsed/ Rinsed/ Irrigated with Irrigated with Saline Saline -Foul Odor after Cleansing No No -Negative Pressure Wound Therapy N/A -Primary Dressing Applied Aquacel AG 4x4 NonAdherent Contact Layer, Promogran -Primary Dressing Covered/Secured with Dry Gauze & Dry Gauze & Roll Gauze, Roll Gauze, Secured with Secured with Tape Tape -Aquacel AG 4x4 1 -Promogran 1 9. RLE superior -Ulcer Cleansing Rinsed/ Rinsed/ Irrigated with Irrigated with Saline Saline -Foul Odor after Cleansing No -Negative Pressure Wound Therapy Start -Setting (mmHg) 125 -Negative Pressure is Continuous -Primary Dressing Applied Aquacel AG 4x4 -Primary Dressing Covered/Secured with Dry Gauze & Roll Gauze, Secured with Tape -Other Covering snap vac -NPWT Application Charge ($) NPWT </= 50 sq cm -Aquacel AG 4x4 0 Right -Lotion applied to leg before No compression wrap -Compression Wrap Tushar Wrap Tushar Wrap Treatment Response Procedure Procedure Tolerated Well Tolerated Well Pain Scale: 0-10 Numeric Is Patient Pain Free? Yes Yes Teaching: Wound Center Control Swelling with Leg Elevation -Person Taught Patient -Teaching Method Discussion -Response to teaching Verbalize understanding WC - Visit Discharge Discharge Condition Stable Stable Ambulatory Status Ambulatory Ambulatory Transportation Private Auto Private Auto Accompanied by self Medication Reconcilliation completed & No provided to patient/care provider Clinical Summary of Care Provided Yes Facility Type Home Health Wound debrided: RLE superior Laterality: Right Type of Debridement: Excisional debridement Anesthesia Used: 4% Lidocaine Solution, 5% Lidocaine Gel Depth: Down to and including healthy tissue, in the subcutaneous layer Percentage of wound debrided: 100 Instrument Used: 7mm curette Tissue Removed: Yellow slough, devitalized tissue Severity: Fat Layer Exposed Amount of bleeding with debridement: Mild Bleeding Controlled with: Compression and gauze Patient tolerated procedure well - Additional Wound Wound debrided: right LE inferior Laterality: Right Type of Debridement: Excisional debridement Anesthesia Used: 4% Lidocaine Solution, 5% Lidocaine Gel Depth: Down to and including healthy tissue, in the subcutaneous layer Percentage of wound debrided: 100 Instrument Used: 7mm curette Tissue Removed: Yellow slough, devitalized tissue Severity: Fat Layer Exposed Amount of bleeding with debridement: Mild Bleeding Controlled with: Compression and gauze Patient tolerated procedure: Patient tolerated procedure well Assessment/Plan Active Problems (Last Updated 04/17/20 @ 12:52 by Chasidy Pedraza) Traumatic open wound of right lower leg with delayed healing (Chronic) Traumatic open wound of right lower leg with infection (Chronic) Cellulitis and abscess of right leg (Chronic) Coronary heart disease (Chronic) Traumatic wound (Chronic) Asthma (Chronic) Hypertension (Chronic) Assessment: right lower extremity wounds due to hematoma from trauma - hitting step/box Plan: [place]'s wounds were evaluated and debrided today. Will dress his superior wound with Promogran and adaptic and will apply Snap vac to his inferior wound. Due to the depth and undermining of the inferior wound as well as heavy drainage, he would benefit from application and use of a SNAP vac wound vac to heal his wound more quickly. He is homebound, does not drive and relies on hospital transportation or others to take him to appointments. Home Health will be consulted to assist him in doing dressing changes. Will use TUSHAR bandages for compression. Patient has been advised to elevate his lower extremities for the long-term, to minimize swelling and edema. Encouraged increase protein intake to aid in wound healing. Labs were reviewed from 03/23/2020 and show mild anemia, normal protein and mild renal insufficiency (GFR 51) and normal glucose. It may be beneficial to repeat A1C or request labs from his PCP. In 2018, he had an elevated A1C of 7.7%. Vascular testing in 2018 showed no venous insufficiency and arterial studies in 2017 did not show any arterial disease. Xray of his right LE 04/17/2020 was normal without any evidence for underlying fracture or bone disease. F/U in 1 week or sooner if needed.
[2020-05-05 08:53] VITALS: BP 123/69; PULSE 86; RESP 18; TEMP 36.6; BMI 29.6
--- NOTE | 2020-05-05 10:20 | PN.PCM_ITS ---
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 Status: Chronic Code(s): S81.801D - Unspecified open wound, right lower leg, subsequent encounter (2) Traumatic open wound of right lower leg with infection Status: Chronic Qualifiers: Encounter type: subsequent encounter Qualified Code(s): S81.801D - Unspecified open wound, right lower leg, subsequent encounter; L08.9 - Local infection of the skin and subcutaneous tissue, unspecified Code(s): S81.801A - Unspecified open wound, right lower leg, initial encounter; L08.9 - Local infection of the skin and subcutaneous tissue, unspecified (3) Cellulitis and abscess of right leg Status: Chronic Code(s): L03.115 - Cellulitis of right lower limb; L02.415 - C utaneous abscess of right lower limb (4) Coronary heart disease Status: Chronic Qualifiers: Coronary Disease-Associated Artery/Lesion type: unspecified vessel or lesion type [place] vs. transplanted heart: unspecified whether [place] or transplanted heart Associated angina: with unspecified angina Qualified Code(s): I25.119 - Atherosclerotic heart disease of [place] coronary artery with unspecified angina pectoris Code(s): I25.10 - Atherosclerotic heart disease of [place] coronary artery without angina pectoris (5) Traumatic wound Status: Chronic (6) Asthma Status: Chronic Qualifiers: Asthma severity: unspecified severity Asthma complication type: unspecified Code(s): J45.909 - Unspecified asthma, uncomplicated (7) Hypertension Status: Chronic Qualifiers: Hypertension type: essential hypertension Qualified Code(s): I10 - Essential (primary) hypertension Code(s): I10 - Essential (primary) hypertension Type of Wound Date of Service: 05/05/20 Chief Complaint: Traumatic injury of the right lower extremity with open wound s/p hematoma and I and D History of Wound: This is an 79-year-old male who was in his normal state of health until approximately March 16, 2020, at which time he sustained an injury to his right cota distally that occurred from bumping his leg on a step. He went to the ER on 03/23/2020 and was given IV Unasyn x 1 dose and the ER physician wanted him to stay for surgical debridement but he refused and saw general surgery as an outpatient on 03/24/2020 where an I and D and hematoma evacuation was performed as an outpatient by Dr. Macias in her office. Clot was removed and a culture taken. He was given Keflex and Bactrim DS and the wound was packed with gauze packing. It was followed for 2 weeks and was improving. On 04/17/2020, his home health aid saw his leg and suggested that he see a physician as his cota area was erythematous, warm and dswollen. [facility] and an xray and wound culture were completed and he was started on Clindamycin and referred to the wound center for additional treatment. He has been using gauze to dress his wound. He also bumped his upper cota of his right leg on a box a few days ago and it is bruised and draining as well. He does have compression stockings to use for edema but has not been wearing them and he has had increased edema to his right leg. He denies any systemic signs of infection such as fever, chills, nausea, vomiting, fatigue. He has had venous studies showing no venous disease in October 2017 and arterial studies showing no arterial disease in 2016. Progress of Wound: [place] is here for follow up of right cota and right lateral lower leg wound s/p hematoma evacuation/I and D. He tolerated treatment with Snap vac and has had improvement in his wounds. He denies any fever, chills, odor, pain, increased drainage. - Physical Exam Vital Signs Temp Pulse Resp BP 98 F 86 18 123/69 H 05/05/20 08:53 05/05/20 08:53 05/05/20 08:53 05/05/20 08:53 General: Alert, Oriented x3, Cooperative, No apparent distress HEENT: Atraumatic, Normocephalic Oral: Moist Mucosa Neck: Supple Extremities: Edema Skin: Ulcer/ Wound Wound Measurements and Assessment WC - Nurse 1 - General Ulcer Measurement Start: 04/21/20 08:22 Freq: Status: Active Protocol: Activity Type Activity Date Activity User E-Sign Co-Sign Detail Recorded Client Recorded Date Recorded By Document 05/05/20 08:53 RB [id number] 05/05/20 08:56 RB 05/05/20 08:53 Wound Center Nurse 1 [Ulcer Assessment] 10. RLE inferior -Combined with other wound No -Current Size (cm) - Length 2.4 -Current Size (cm) - Width 1.5 -Current Size (cm) - Depth 0.2 -Total Square Cm 3.60 -Tunneling No -Undermining/Tunneling No -Circular Undermining No -Exudate Amt Large -Exudate Type Serosanguineous -Wound Margin Flat & Intact -Granulation Amt Medium (34-66%) -Granulation Quality Guide Rock -Slough/Fibrin Yes -Necrosis Amt Small (1-33%) -Necrotic Tissue Type Adherent Slough -Structure Exposed N/A -Texture (Karin-wound Skin Appearance) Assessed, Scarring -Moisture (Karin-wound Skin Appearance Assessed ) -Color (Karin-wound Skin Appearance) Assessed -Temperature (Karin-wound Skin No Abnormality Appearance) (Pt Warm) -Tenderness on Palpation (Karin-wound No Skin Appearance) -Ulcer Cleansing Wound Cleanser -Foul Odor after Cleansing No -Anesthetic Used 4% Lidocaine Solution 9. RLE superior -Combined with other wound No -Current Size (cm) - Length 3 -Current Size (cm) - Width 1.3 -Current Size (cm) - Depth 0.1 -Total Square Cm 3.9 -Tunneling No -Undermining/Tunneling No -Circular Undermining No -Exudate Amt Small -Exudate Type Serosanguineous -Wound Margin Flat & Intact -Granulation Amt Medium (34-66%) -Granulation Quality Guide [place] -Slough/Fibrin Yes -Necrosis Amt Small (1-33%) -Necrotic Tissue Type Adherent Slough -Structure Exposed N/A -Texture (Karin-wound Skin Appearance) Assessed -Moisture (Karin-wound Skin Appearance Assessed ) -Color (Karin-wound Skin Appearance) Assessed -Temperature (Karin-wound Skin No Abnormality Appearance) (Pt Warm) -Tenderness on Palpation (Karin-wound No Skin Appearance) -Ulcer Cleansing Wound Cleanser -Foul Odor after Cleansing No -Anesthetic Used 4% Lidocaine Solution [Edema Assessment] -Lower Limb Edema Present Yes -Right Calf (cm) 36 -Right Ankle (cm) 24 WC - Nurse 2 - General Ulcer CM Notes Start: 04/21/20 08:22 Freq: Status: Active Protocol: Activity Type Activity Date Activity User E-Sign Co-Sign Detail Recorded Client Recorded Date Recorded By Document 05/05/20 09:09 MW [id number] 05/05/20 09:10 MW 05/05/20 09:09 Wound Center Nurse 2 [Procedure/Treatment] 10. RLE inferior -Time 09:09 -Correct Patient Yes -Correct Side, Site, Position Yes -Correct Procedure Yes -Procedure Performed Yes -Type of Procedure Debridement -Clinical Debridement Subcutaneous -Tissue Removed Subcutaneous -Post Debridement (cm) - Length 2.2 -Post Debridement (cm) - Width 2.0 -Post Debridement (cm) - Depth 0.2 -Total Square (Post) (cm) 4.40 -Area of Debridement (cm) - Length 2.2 -Area of Debridement (cm) - Width 2.0 -Total Square (Area) (cm) 4.40 -Tunneling No -Undermining/Tunneling No -Circular Undermining No -Wound/Ulcer Outcome Not Healed -Ulcer Cleansing Rinsed/ Irrigated with Saline -Foul Odor after Cleansing No -Bioengineered Tissue No -Bleeding Controlled with Pressure -Offloading No -Debridement - Subq, 1st 20sq cm Yes 9. RLE superior -Time 09:10 -Correct Patient Yes -Correct Side, Site, Position Yes -Correct Procedure Yes -Procedure Performed Yes -Type of Procedure Debridement -Clinical Debridement Subcutaneous -Tissue Removed Subcutaneous -Post Debridement (cm) - Length 0.5 -Post Debridement (cm) - Width 0.5 -Post Debridement (cm) - Depth 0.1 -Total Square (Post) (cm) 0.25 -Area of Debridement (cm) - Length 0.5 -Area of Debridement (cm) - Width 0.5 -Total Square (Area) (cm) 0.25 -Tunneling No -Undermining/Tunneling No -Circular Undermining No -Wound/Ulcer Outcome Not Healed -Ulcer Cleansing Rinsed/ Irrigated with Saline -Foul Odor after Cleansing No -Bioengineered Tissue No -Bleeding Controlled with Pressure -Offloading No -Treatment Response Procedure Tolerated Well -Debridement - Subq, 1st 20sq cm No [See Physician Procedure note for Specifics] Pain Scale: 0-10 Numeric [Pain] -Is Patient Pain Free? Yes WC - Nurse 3 - General Ulcer D/C NN Start: 04/21/20 08:22 Freq: Status: Active Protocol: Activity Type Activity Date Activity User E-Sign Co-Sign Detail Recorded Client Recorded Date Recorded By Document 05/05/20 09:18 MW [id number] 05/05/20 09:20 MW 05/05/20 09:18 Wound Care Nurse 3 [Wound Dressing] 10. RLE inferior -Ulcer Cleansing Rinsed/ Irrigated with Saline -Foul Odor after Cleansing No -Negative Pressure Wound Therapy Continue -Setting (mmHg) 125 -Negative Pressure is Continuous -Primary Dressing Covered/Secured Secured with with Tape -NPWT Application Charge ($) NPWT </= 50 sq cm (disp) 9. RLE superior -Ulcer Cleansing Rinsed/ Irrigated with Saline -Foul Odor after Cleansing No -Negative Pressure Wound Therapy N/A -Primary Dressing Applied C Hydrogel ($), NonAdherent Contact Layer -Primary Dressing Covered/Secured Dry Gauze & with Roll Gauze, Secured with Tape [Compression Applied] Right -Lotion applied to leg before No compression wrap -Compression Wrap Tushar Wrap [Post Procedure Tolerated] -Treatment Response Procedure Tolerated Well Pain Scale: 0-10 Numeric [Pain] -Is Patient Pain Free? Yes Teaching: Wound Center [Wound Center Education] (Items with an * have Printed Materials Available- Please identify what is given to patient under the Teaching materials given to patient and caregiver Section. Compression Wraps & Stockings -Person Taught Patient -Teaching Method Discussion, Demonstration -Response to teaching Verbalize understanding Dressing Your Wound -Person Taught Patient -Teaching Method Discussion, Demonstration -Response to teaching Verbalize understanding WC - Visit Discharge [Visit Discharge Information] -Discharge Condition Stable -Ambulatory Status Ambulatory,Cane -Transportation Private Auto -Accompanied by self -Medication Reconcilliation completed No & provided to patient/care provider -Clinical Summary of Care Provided Yes Psych/Mental Status: Normal Affect, Appropriate Debridement Note Post-Debridement Measurements/Treatment WC - Nurse 2 - General Ulcer CM Notes Start: 04/21/20 08:22 Freq: Status: Active Protocol: Activity Type Activity Date Activity User E-Sign Co-Sign Detail Recorded Client Recorded Date Recorded By Document 04/21/20 08:56 MW [id number] 04/21/20 09:23 MW Document 04/28/20 08:39 MW [id number] 04/28/20 08:52 MW Document 05/05/20 09:09 MW [id number] 05/05/20 09:10 MW 04/21/20 04/28/20 05/05/20 08:56 08:39 09:09 Wound Center Nurse 2 10. RLE inferior -Time 08:56 08:39 09:09 -Correct Patient Yes Yes Yes -Correct Side, Site, Position Yes Yes Yes -Correct Procedure Yes Yes Yes -Procedure Performed Yes Yes Yes -Type of Procedure Debridement Debridement Debridement -Clinical Debridement Subcutaneous Subcutaneous Subcutaneous -Tissue Removed Subcutaneous Subcutaneous Subcutaneous -Post Debridement (cm) - Length 1.9 2.4 2.2 -Post Debridement (cm) - Width 2.1 1.8 2.0 -Post Debridement (cm) - Depth 0.5 0.4 0.2 -Total Square (Post) (cm) 3.99 4.32 4.40 -Area of Debridement (cm) - Length 1.9 2.4 2.2 -Area of Debridement (cm) - Width 2.1 1.8 2.0 -Total Square (Area) (cm) 3.99 4.32 4.40 -Tunneling No No No -Undermining/Tunneling No No No -Undermining/Tunneling Starts (O'clock 3 ) -Undermining/Tunneling Ends (O'clock) 4 -Maximum Distance (cm) 1.0 -Undermining/Tunneling Starts #2 (O' 8 clock) -Undermining/Tunneling Ends #2 (O' 9 clock) -Maximum Distance #2 (cm) 1.0 -Circular Undermining No No No -Wound/Ulcer Outcome Not Healed Not Healed Not Healed -Ulcer Cleansing Rinsed/ Rinsed/ Rinsed/ Irrigated with Irrigated with Irrigated with Saline Saline Saline -Foul Odor after Cleansing No No No -Bioengineered Tissue No No No -Bleeding Controlled with Pressure Pressure Pressure -Offloading No No No -Treatment Response Procedure Procedure Tolerated Well Tolerated Well -Debridement - Subq, 1st 20sq cm Yes Yes Yes 9. RLE superior -Time 09:03 08:39 09:10 -Correct Patient Yes Yes Yes -Correct Side, Site, Position Yes Yes Yes -Correct Procedure Yes Yes Yes -Procedure Performed Yes Yes Yes -Type of Procedure Debridement Debridement Debridement -Clinical Debridement Subcutaneous Subcutaneous Subcutaneous -Tissue Removed Subcutaneous Subcutaneous Subcutaneous -Post Debridement (cm) - Length 2.8 3.4 0.5 -Post Debridement (cm) - Width 2.0 1.7 0.5 -Post Debridement (cm) - Depth 0.3 0.2 0.1 -Total Square (Post) (cm) 5.60 5.78 0.25 -Area of Debridement (cm) - Length 2.8 3.4 0.5 -Area of Debridement (cm) - Width 2.0 1.7 0.5 -Total Square (Area) (cm) 5.60 5.78 0.25 -Tunneling No No No -Undermining/Tunneling No No No -Circular Undermining No No No -Wound/Ulcer Outcome Not Healed Not Healed Not Healed -Ulcer Cleansing Rinsed/ Rinsed/ Rinsed/ Irrigated with Irrigated with Irrigated with Saline Saline Saline -Foul Odor after Cleansing No No No -Bioengineered Tissue No No No -Bleeding Controlled with Pressure Pressure Pressure -Offloading No No No -Treatment Response Procedure Procedure Tolerated Well Tolerated Well -Debridement - Subq, 1st 20sq cm No No No Pain Scale: 0-10 Numeric Is Patient Pain Free? Yes Yes Yes WC - Nurse 3 - General Ulcer D/C NN Start: 04/21/20 08:22 Freq: Status: Active Protocol: Activity Type Activity Date Activity User E-Sign Co-Sign Detail Recorded Client Recorded Date Recorded By Document 04/21/20 09:39 [facility] [id number] 04/21/20 09:40 [facility] Document 04/28/20 08:59 MW [id number] 04/28/20 09:04 MW Document 05/05/20 09:18 MW [id number] 05/05/20 09:20 MW 04/21/20 04/28/20 05/05/20 09:39 08:59 09:18 Wound Care Nurse 3 10. RLE inferior -Ulcer Cleansing Rinsed/ Rinsed/ Rinsed/ Irrigated with Irrigated with Irrigated with Saline Saline Saline -Foul Odor after Cleansing No No No -Negative Pressure Wound Therapy N/A Continue -Setting (mmHg) 125 -Negative Pressure is Continuous -Primary Dressing Applied Aquacel AG 4x4 NonAdherent Contact Layer, Promogran -Primary Dressing Covered/Secured with Dry Gauze & Dry Gauze & Secured with Roll Gauze, Roll Gauze, Tape Secured with Secured with Tape Tape -NPWT Application Charge ($) NPWT </= 50 sq cm (disp) -Aquacel AG 4x4 1 -Promogran 1 9. RLE superior -Ulcer Cleansing Rinsed/ Rinsed/ Rinsed/ Irrigated with Irrigated with Irrigated with Saline Saline Saline -Foul Odor after Cleansing No No -Negative Pressure Wound Therapy Start N/A -Setting (mmHg) 125 -Negative Pressure is Continuous -Primary Dressing Applied Aquacel AG 4x4 C Hydrogel ($), NonAdherent Contact Layer -Primary Dressing Covered/Secured with Dry Gauze & Dry Gauze & Roll Gauze, Roll Gauze, Secured with Secured with Tape Tape -Other Covering snap vac -NPWT Application Charge ($) NPWT </= 50 sq cm (disp) -Aquacel AG 4x4 0 Right -Lotion applied to leg before No No compression wrap -Compression Wrap Tushar Wrap Tushar Wrap Tushar Wrap Treatment Response Procedure Procedure Procedure Tolerated Well Tolerated Well Tolerated Well Pain Scale: 0-10 Numeric Is Patient Pain Free? Yes Yes Yes Teaching: Wound Center Compression Wraps & Stockings -Person Taught Patient -Teaching Method Discussion, Demonstration -Response to teaching Verbalize understanding Control Swelling with Leg Elevation -Person Taught Patient -Teaching Method Discussion -Response to teaching Verbalize understanding Dressing Your Wound -Person Taught Patient -Teaching Method Discussion, Demonstration -Response to teaching Verbalize understanding WC - Visit Discharge Discharge Condition Stable Stable Stable Ambulatory Status Ambulatory Ambulatory Ambulatory,Cane Transportation Private Auto Private Auto Private Auto Accompanied by self self Medication Reconcilliation completed & No No provided to patient/care provider Clinical Summary of Care Provided Yes Yes Facility Type Home Health Wound debrided: RLE inferior Laterality: Right Type of Debridement: Excisional debridement Anesthesia Used: 4% Lidocaine Solution Depth: Down to and including healthy tissue, in the subcutaneous layer Percentage of wound debrided: 100 Instrument Used: 7mm curette Tissue Removed: Yellow slough, devitalized tissue Severity: Fat Layer Exposed Amount of bleeding with debridement: Mild Bleeding Controlled with: Compression and gauze Patient tolerated procedure well - Additional Wound Wound debrided: RLE superior Laterality: Right Type of Debridement: Excisional debridement Anesthesia Used: 4% Lidocaine Solution Depth: Down to and including healthy tissue, in the subcutaneous layer Percentage of wound debrided: 100 Instrument Used: 7mm curette Tissue Removed: Yellow slough, devitalized tissue Severity: Fat Layer Exposed Amount of bleeding with debridement: Mild Bleeding Controlled with: Compression and gauze Patient tolerated procedure: Patient tolerated procedure well Assessment/Plan Active Problems (Last Updated 04/17/20 @ 12:52 by Chasidy Pedraza) Traumatic open wound of right lower leg with delayed healing (Chronic) Traumatic open wound of right lower leg with infection (Chronic) Cellulitis and abscess of right leg (Chronic) Coronary heart disease (Chronic) Traumatic wound (Chronic) Asthma (Chronic) Hypertension (Chronic) Assessment: right lower extremity wounds due to hematoma from trauma - hitting step/box Plan: [place]'s wounds were evaluated and debrided today. Will dress his superior wound with Hydrogel and adaptic and will continue to apply Snap vac to his inferior wound. Due to the depth and undermining of the inferior wound as well as heavy drainage, he would benefit from application and use of a SNAP vac wound vac to heal his wound more quickly and this has improved the depth significantly and helped with granulation. He is homebound, does not drive and relies on hospital transportation or others to take him to appointments. Home Health will be consulted to assist him in doing dressing changes. Will use TUSHAR bandages for compression. Patient has been advised to elevate his lower extremities for the long-term, to minimize swelling and edema. Encouraged increase protein intake to aid in wound healing. Labs were reviewed from 03/23/2020 and show mild anemia, normal protein and mild renal insufficiency (GFR 51) and normal glucose. It may be beneficial to repeat A1C or request labs from his PCP. In 2018, he had an elevated A1C of 7.7%. Vascular testing in 2018 showed no venous insufficiency and arterial studies in 2017 did not show any arterial disease. Xray of his right LE 04/17/2020 was normal without any evidence for underlying fracture or bone disease. F/U in 1 week or sooner if needed.
[2020-05-10 09:31] VITALS: BP 133/76; PULSE 81; RESP 18; TEMP 36.4; BMI 29.6
[2020-05-16 13:56] VITALS: BP 124/68; PULSE 97; RESP 20; TEMP 36.6; BMI 29.6
--- NOTE | 2020-05-16 16:01 | PN.PCM_ITS ---
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 Status: Chronic Code(s): S81.801D - Unspecified open wound, right lower leg, subsequent encounter (2) Traumatic open wound of right lower leg with infection Status: Chronic Qualifiers: Encounter type: subsequent encounter Qualified Code(s): S81.801D - Unspecified open wound, right lower leg, subsequent encounter; L08.9 - Local infection of the skin and subcutaneous tissue, unspecified Code(s): S81.801A - Unspecified open wound, right lower leg, initial encounter; L08.9 - Local infection of the skin and subcutaneous tissue, unspecified (3) Cellulitis and abscess of right leg Status: Chronic Code(s): L03.115 - Cellulitis of right lower limb; L02.415 - C utaneous abscess of right lower limb (4) Coronary heart disease Status: Chronic Qualifiers: Coronary Disease-Associated Artery/Lesion type: unspecified vessel or lesion type [place] vs. transplanted heart: unspecified whether [place] or transplanted heart Associated angina: with unspecified angina Qualified Code(s): I25.119 - Atherosclerotic heart disease of [place] coronary artery with unspecified angina pectoris Code(s): I25.10 - Atherosclerotic heart disease of [place] coronary artery without angina pectoris (5) Traumatic wound Status: Chronic (6) Asthma Status: Chronic Qualifiers: Asthma severity: unspecified severity Asthma complication type: unspecified Code(s): J45.909 - Unspecified asthma, uncomplicated (7) Hypertension Status: Chronic Qualifiers: Hypertension type: essential hypertension Qualified Code(s): I10 - Essential (primary) hypertension Code(s): I10 - Essential (primary) hypertension Type of Wound Date of Service: 05/16/20 Chief Complaint: Traumatic injury of the right lower extremity with open wound s/p hematoma and I and D History of Wound: This is an 79-year-old male who was in his normal state of health until approximately March 16, 2020, at which time he sustained an injury to his right cota distally that occurred from bumping his leg on a step. He went to the ER on 03/23/2020 and was given IV Unasyn x 1 dose and the ER physician wanted him to stay for surgical debridement but he refused and saw general surgery as an outpatient on 03/24/2020 where an I and D and hematoma evacuation was performed as an outpatient by Dr. Macias in her office. Clot was removed and a culture taken. He was given Keflex and Bactrim DS and the wound was packed with gauze packing. It was followed for 2 weeks and was improving. On 04/17/2020, his home health aid saw his leg and suggested that he see a physician as his cota area was erythematous, warm and dswollen. [facility] and an xray and wound culture were completed and he was started on Clindamycin and referred to the wound center for additional treatment. He has been using gauze to dress his wound. He also bumped his upper cota of his right leg on a box a few days ago and it is bruised and draining as well. He does have compression stockings to use for edema but has not been wearing them and he has had increased edema to his right leg. He denies any systemic signs of infection such as fever, chills, nausea, vomiting, fatigue. He has had venous studies showing no venous disease in October 2017 and arterial studies showing no arterial disease in 2016. Progress of Wound: [place] is here for follow up of right cota and right lateral lower leg wound s/p hematoma evacuation/I and D. He is tolerating treatment with Snap vac and has had improvement in his wounds. He struck his left foot on a chair and has an abarasion with surrounding erythema suggestive of cellulitis. He denies any fever, chills, odor, pain, increased drainage. - Physical Exam Vital Signs Temp Pulse Resp BP 97.8 F 97 20 H 124/68 H 05/16/20 13:56 05/16/20 13:56 05/16/20 13:56 05/16/20 13:56 General: Alert, Oriented x3, Cooperative, No apparent distress HEENT: Atraumatic, Normocephalic Extremities: Edema Skin: Ulcer/ Wound Wound Measurements and Assessment WC - Nurse 1 - General Ulcer Measurement Start: 04/21/20 08:22 Freq: Status: Active Protocol: Activity Type Activity Date Activity User E-Sign Co-Sign Detail Recorded Client Recorded Date Recorded By Document 05/16/20 13:56 DL [id number] 05/16/20 14:06 DL 05/16/20 13:56 Wound Center Nurse 1 [Ulcer Assessment] 10. RLE inferior -Combined with other wound No -Current Size (cm) - Length 1.5 -Current Size (cm) - Width 1.8 -Current Size (cm) - Depth 0.1 -Total Square Cm 2.70 -Photo Taken No -Epithelialization Small 1-33% -Tunneling No -Undermining/Tunneling No -Circular Undermining No -Exudate Amt Small -Exudate Type Serosanguineous -Wound Margin Distinct, Outline Attached -Granulation Amt Large (67-100%) -Granulation Quality Red -Slough/Fibrin Yes -Necrosis Amt Small (1-33%) -Necrotic Tissue Type Adherent Slough -Texture (Karin-wound Skin Appearance) Assessed -Moisture (Karin-wound Skin Appearance Assessed, ) Maceration -Color (Karin-wound Skin Appearance) Assessed,Palor -Temperature (Karin-wound Skin No Abnormality Appearance) (Pt Warm) -Tenderness on Palpation (Karin-wound No Skin Appearance) -Ulcer Cleansing soapy water -Foul Odor after Cleansing No -Anesthetic Used 5% Lidocaine Gel 9. RLE superior -Combined with other wound No -Current Size (cm) - Length 0.1 -Current Size (cm) - Width 0.1 -Current Size (cm) - Depth 0.1 -Total Square Cm 0.01 -Epithelialization Large 67-100% -Texture (Karin-wound Skin Appearance) Assessed, Scarring -Moisture (Karin-wound Skin Appearance Assessed,Dry/ ) Scaly -Color (Karin-wound Skin Appearance) Assessed -Temperature (Karin-wound Skin No Abnormality Appearance) (Pt Warm) -Tenderness on Palpation (Karin-wound No Skin Appearance) -Ulcer Cleansing soapy water -Foul Odor after Cleansing No -Anesthetic Used 5% Lidocaine Gel [Edema Assessment] -Lower Limb Edema Present Yes -Right Calf (cm) 41 -Right Ankle (cm) 22.8 WC - Nurse 2 - General Ulcer CM Notes Start: 04/21/20 08:22 Freq: Status: Active Protocol: Activity Type Activity Date Activity User E-Sign Co-Sign Detail Recorded Client Recorded Date Recorded By Document 05/16/20 14:17 MW [id number] 05/16/20 14:20 MW 05/16/20 14:17 Wound Center Nurse 2 [Procedure/Treatment] 10. RLE inferior -Time 14:17 -Correct Patient Yes -Correct Side, Site, Position Yes -Correct Procedure Yes -Procedure Performed Yes -Type of Procedure Debridement -Clinical Debridement Subcutaneous -Tissue Removed Subcutaneous -Post Debridement (cm) - Length 1.7 -Post Debridement (cm) - Width 1.8 -Post Debridement (cm) - Depth 0.2 -Total Square (Post) (cm) 3.06 -Area of Debridement (cm) - Length 1.7 -Area of Debridement (cm) - Width 1.8 -Total Square (Area) (cm) 3.06 -Tunneling No -Undermining/Tunneling No -Circular Undermining No -Wound/Ulcer Outcome Not Healed -Ulcer Cleansing Rinsed/ Irrigated with Saline -Foul Odor after Cleansing No -Bioengineered Tissue No -Bleeding Controlled with Pressure -Offloading No -Treatment Response Procedure Tolerated Well -Debridement - Subq, 1st 20sq cm Yes 9. RLE superior -Time 14:17 -Correct Patient Yes -Correct Side, Site, Position Yes -Correct Procedure Yes -Procedure Performed Yes -Type of Procedure Debridement -Clinical Debridement Subcutaneous -Tissue Removed Subcutaneous -Post Debridement (cm) - Length 1.5 -Post Debridement (cm) - Width 2.0 -Post Debridement (cm) - Depth 0.1 -Total Square (Post) (cm) 3.00 -Area of Debridement (cm) - Length 1.5 -Area of Debridement (cm) - Width 2.0 -Total Square (Area) (cm) 3.00 -Tunneling No -Undermining/Tunneling No -Circular Undermining No -Wound/Ulcer Outcome Not Healed -Ulcer Cleansing Rinsed/ Irrigated with Saline -Foul Odor after Cleansing No -Bioengineered Tissue No -Bleeding Controlled with Pressure -Offloading No -Treatment Response Procedure Tolerated Well -Debridement - Subq, 1st 20sq cm No [See Physician Procedure note for Specifics] Pain Scale: 0-10 Numeric [Pain] -Is Patient Pain Free? Yes WC - Nurse 3 - General Ulcer D/C NN Start: 04/21/20 08:22 Freq: Status: Active Protocol: Activity Type Activity Date Activity User E-Sign Co-Sign Detail Recorded Client Recorded Date Recorded By Document 05/16/20 14:36 DL [id number] 05/16/20 14:39 DL 05/16/20 14:36 Wound Care Nurse 3 [Wound Dressing] 10. RLE inferior -Ulcer Cleansing Wound Cleanser -Foul Odor after Cleansing No -Negative Pressure Wound Therapy Continue -Setting (mmHg) 125 -Negative Pressure is Continuous -Other Dressing SNAP -NPWT Application Charge ($) NPWT </= 50 sq cm (disp) 9. RLE superior -Ulcer Cleansing Wound Cleanser -Foul Odor after Cleansing No -Primary Dressing Applied NonAdherent Contact Layer -Other Dressing HYDROGEL -Primary Dressing Covered/Secured Dry Gauze & with Roll Gauze, Secured with Tape -Other Covering TUSHAR [Compression Applied] Left -Tubular Bandage Single Layer -Size of Tubigrip Used Size D -Size D ($) 1 Right -Compression Wrap Tushar Wrap [Post Procedure Tolerated] -Treatment Response Procedure Tolerated Well Pain Scale: 0-10 Numeric [Pain] -Is Patient Pain Free? Yes WC - Visit Discharge [Visit Discharge Information] -Discharge Condition Stable -Ambulatory Status Ambulatory -Transportation Private Auto [Facility Notification] -Facility Type Home Health -Orders Sent Yes Psych/Mental Status: Normal Affect, Appropriate Debridement Note Post-Debridement Measurements/Treatment WC - Nurse 2 - General Ulcer CM Notes Start: 04/21/20 08:22 Freq: Status: Active Protocol: Activity Type Activity Date Activity User E-Sign Co-Sign Detail Recorded Client Recorded Date Recorded By Document 04/21/20 08:56 MW [id number] 04/21/20 09:23 MW Document 04/28/20 08:39 MW [id number] 04/28/20 08:52 MW Document 05/05/20 09:09 MW [id number] 05/05/20 09:10 MW Document 05/16/20 14:17 MW [id number] 05/16/20 14:20 MW 04/21/20 04/28/20 05/05/20 08:56 08:39 09:09 Wound Center Nurse 2 10. RLE inferior -Time 08:56 08:39 09:09 -Correct Patient Yes Yes Yes -Correct Side, Site, Position Yes Yes Yes -Correct Procedure Yes Yes Yes -Procedure Performed Yes Yes Yes -Type of Procedure Debridement Debridement Debridement -Clinical Debridement Subcutaneous Subcutaneous Subcutaneous -Tissue Removed Subcutaneous Subcutaneous Subcutaneous -Post Debridement (cm) - Length 1.9 2.4 2.2 -Post Debridement (cm) - Width 2.1 1.8 2.0 -Post Debridement (cm) - Depth 0.5 0.4 0.2 -Total Square (Post) (cm) 3.99 4.32 4.40 -Area of Debridement (cm) - Length 1.9 2.4 2.2 -Area of Debridement (cm) - Width 2.1 1.8 2.0 -Total Square (Area) (cm) 3.99 4.32 4.40 -Tunneling No No No -Undermining/Tunneling No No No -Undermining/Tunneling Starts (O'clock 3 ) -Undermining/Tunneling Ends (O'clock) 4 -Maximum Distance (cm) 1.0 -Undermining/Tunneling Starts #2 (O' 8 clock) -Undermining/Tunneling Ends #2 (O' 9 clock) -Maximum Distance #2 (cm) 1.0 -Circular Undermining No No No -Wound/Ulcer Outcome Not Healed Not Healed Not Healed -Ulcer Cleansing Rinsed/ Rinsed/ Rinsed/ Irrigated with Irrigated with Irrigated with Saline Saline Saline -Foul Odor after Cleansing No No No -Bioengineered Tissue No No No -Bleeding Controlled with Pressure Pressure Pressure -Offloading No No No -Treatment Response Procedure Procedure Tolerated Well Tolerated Well -Debridement - Subq, 1st 20sq cm Yes Yes Yes 9. RLE superior -Time 09:03 08:39 09:10 -Correct Patient Yes Yes Yes -Correct Side, Site, Position Yes Yes Yes -Correct Procedure Yes Yes Yes -Procedure Performed Yes Yes Yes -Type of Procedure Debridement Debridement Debridement -Clinical Debridement Subcutaneous Subcutaneous Subcutaneous -Tissue Removed Subcutaneous Subcutaneous Subcutaneous -Post Debridement (cm) - Length 2.8 3.4 0.5 -Post Debridement (cm) - Width 2.0 1.7 0.5 -Post Debridement (cm) - Depth 0.3 0.2 0.1 -Total Square (Post) (cm) 5.60 5.78 0.25 -Area of Debridement (cm) - Length 2.8 3.4 0.5 -Area of Debridement (cm) - Width 2.0 1.7 0.5 -Total Square (Area) (cm) 5.60 5.78 0.25 -Tunneling No No No -Undermining/Tunneling No No No -Circular Undermining No No No -Wound/Ulcer Outcome Not Healed Not Healed Not Healed -Ulcer Cleansing Rinsed/ Rinsed/ Rinsed/ Irrigated with Irrigated with Irrigated with Saline Saline Saline -Foul Odor after Cleansing No No No -Bioengineered Tissue No No No -Bleeding Controlled with Pressure Pressure Pressure -Offloading No No No -Treatment Response Procedure Procedure Tolerated Well Tolerated Well -Debridement - Subq, 1st 20sq cm No No No Pain Scale: 0-10 Numeric Is Patient Pain Free? Yes Yes Yes 05/16/20 14:17 Wound Center Nurse 2 10. RLE inferior -Time 14:17 -Correct Patient Yes -Correct Side, Site, Position Yes -Correct Procedure Yes -Procedure Performed Yes -Type of Procedure Debridement -Clinical Debridement Subcutaneous -Tissue Removed Subcutaneous -Post Debridement (cm) - Length 1.7 -Post Debridement (cm) - Width 1.8 -Post Debridement (cm) - Depth 0.2 -Total Square (Post) (cm) 3.06 -Area of Debridement (cm) - Length 1.7 -Area of Debridement (cm) - Width 1.8 -Total Square (Area) (cm) 3.06 -Tunneling No -Undermining/Tunneling No -Undermining/Tunneling Starts (O'clock ) -Undermining/Tunneling Ends (O'clock) -Maximum Distance (cm) -Undermining/Tunneling Starts #2 (O' clock) -Undermining/Tunneling Ends #2 (O' clock) -Maximum Distance #2 (cm) -Circular Undermining No -Wound/Ulcer Outcome Not Healed -Ulcer Cleansing Rinsed/ Irrigated with Saline -Foul Odor after Cleansing No -Bioengineered Tissue No -Bleeding Controlled with Pressure -Offloading No -Treatment Response Procedure Tolerated Well -Debridement - Subq, 1st 20sq cm Yes 9. RLE superior -Time 14:17 -Correct Patient Yes -Correct Side, Site, Position Yes -Correct Procedure Yes -Procedure Performed Yes -Type of Procedure Debridement -Clinical Debridement Subcutaneous -Tissue Removed Subcutaneous -Post Debridement (cm) - Length 1.5 -Post Debridement (cm) - Width 2.0 -Post Debridement (cm) - Depth 0.1 -Total Square (Post) (cm) 3.00 -Area of Debridement (cm) - Length 1.5 -Area of Debridement (cm) - Width 2.0 -Total Square (Area) (cm) 3.00 -Tunneling No -Undermining/Tunneling No -Circular Undermining No -Wound/Ulcer Outcome Not Healed -Ulcer Cleansing Rinsed/ Irrigated with Saline -Foul Odor after Cleansing No -Bioengineered Tissue No -Bleeding Controlled with Pressure -Offloading No -Treatment Response Procedure Tolerated Well -Debridement - Subq, 1st 20sq cm No Pain Scale: 0-10 Numeric Is Patient Pain Free? Yes WC - Nurse 3 - General Ulcer D/C NN Start: 04/21/20 08:22 Freq: Status: Active Protocol: Activity Type Activity Date Activity User E-Sign Co-Sign Detail Recorded Client Recorded Date Recorded By Document 04/21/20 09:39 BMF [id number] 04/21/20 09:40 BMF Document 04/28/20 08:59 MW [id number] 04/28/20 09:04 MW Document 05/05/20 09:18 MW [id number] 05/05/20 09:20 MW Document 05/10/20 09:34 BMF [id number] 05/10/20 09:37 BMF Document 05/16/20 14:36 DL [id number] 05/16/20 14:39 DL 04/21/20 04/28/20 05/05/20 09:39 08:59 09:18 Wound Care Nurse 3 10. RLE inferior -Ulcer Cleansing Rinsed/ Rinsed/ Rinsed/ Irrigated with Irrigated with Irrigated with Saline Saline Saline -Foul Odor after Cleansing No No No -Negative Pressure Wound Therapy N/A Continue -Setting (mmHg) 125 -Negative Pressure is Continuous -Primary Dressing Applied Aquacel AG 4x4 NonAdherent Contact Layer, Promogran -Other Dressing -Primary Dressing Covered/Secured with Dry Gauze & Dry Gauze & Secured with Roll Gauze, Roll Gauze, Tape Secured with Secured with Tape Tape -NPWT Application Charge ($) NPWT </= 50 sq cm (disp) -Aquacel AG 4x4 1 -Promogran 1 9. RLE superior -Ulcer Cleansing Rinsed/ Rinsed/ Rinsed/ Irrigated with Irrigated with Irrigated with Saline Saline Saline -Foul Odor after Cleansing No No -Negative Pressure Wound Therapy Start N/A -Setting (mmHg) 125 -Negative Pressure is Continuous -Primary Dressing Applied Aquacel AG 4x4 C Hydrogel ($), NonAdherent Contact Layer -Other Dressing -Primary Dressing Covered/Secured with Dry Gauze & Dry Gauze & Roll Gauze, Roll Gauze, Secured with Secured with Tape Tape -Other Covering snap vac -NPWT Application Charge ($) NPWT </= 50 sq cm (disp) -Aquacel AG 4x4 0 Left -Tubular Bandage -Size of Tubigrip Used -Size D ($) Right -Lotion applied to leg before No No compression wrap -Compression Wrap Tushar Wrap Tushar Wrap Tushar Wrap -Other Treatment Response Procedure Procedure Procedure Tolerated Well Tolerated Well Tolerated Well Pain Scale: 0-10 Numeric Is Patient Pain Free? Yes Yes Yes Teaching: Wound Center Compression Wraps & Stockings -Person Taught Patient -Teaching Method Discussion, Demonstration -Response to teaching Verbalize understanding Control Swelling with Leg Elevation -Person Taught Patient -Teaching Method Discussion -Response to teaching Verbalize understanding Dressing Your Wound -Person Taught Patient -Teaching Method Discussion, Demonstration -Response to teaching Verbalize understanding WC - Visit Discharge Discharge Condition Stable Stable Stable Ambulatory Status Ambulatory Ambulatory Ambulatory,Cane Transportation Private Auto Private Auto Private Auto Accompanied by self self Medication Reconcilliation completed & No No provided to patient/care provider Clinical Summary of Care Provided Yes Yes Facility Type Home Health Orders Sent 05/10/20 05/16/20 09:34 14:36 Wound Care Nurse 3 10. RLE inferior -Ulcer Cleansing Rinsed/ Wound Cleanser Irrigated with Saline -Foul Odor after Cleansing No -Negative Pressure Wound Therapy Continue Continue -Setting (mmHg) 125 125 -Negative Pressure is Continuous Continuous -Primary Dressing Applied -Other Dressing SNAP -Primary Dressing Covered/Secured with -NPWT Application Charge ($) NPWT </= 50 sq NPWT </= 50 sq cm (disp) cm (disp) -Aquacel AG 4x4 -Promogran 9. RLE superior -Ulcer Cleansing Wound Cleanser -Foul Odor after Cleansing No -Negative Pressure Wound Therapy -Setting (mmHg) -Negative Pressure is -Primary Dressing Applied NonAdherent NonAdherent Contact Layer Contact Layer -Other Dressing hydrogel HYDROGEL -Primary Dressing Covered/Secured with Dry Gauze,Dry Dry Gauze & Gauze & Roll Roll Gauze, Gauze,Secured Secured with with Tape Tape -Other Covering TUSHAR -NPWT Application Charge ($) -Aquacel AG 4x4 Left -Tubular Bandage Single Layer -Size of Tubigrip Used Size D -Size D ($) 1 Right -Lotion applied to leg before compression wrap -Compression Wrap Tushar Wrap -Other tushar Treatment Response Procedure Tolerated Well Pain Scale: 0-10 Numeric Is Patient Pain Free? Yes Yes Teaching: Wound Center Compression Wraps & Stockings -Person Taught -Teaching Method -Response to teaching Control Swelling with Leg Elevation -Person Taught -Teaching Method -Response to teaching Dressing Your Wound -Person Taught -Teaching Method -Response to teaching WC - Visit Discharge Discharge Condition Stable Stable Ambulatory Status Ambulatory Ambulatory Transportation Private Auto Private Auto Accompanied by Medication Reconcilliation completed & No provided to patient/care provider Clinical Summary of Care Provided Yes Facility Type Home Health Orders Sent Yes Wound debrided: right LE inferior Laterality: Right Type of Debridement: Excisional debridement Anesthesia Used: 4% Lidocaine Solution, 5% Lidocaine Gel Depth: Down to and including healthy tissue, in the subcutaneous layer Percentage of wound debrided: 100 Instrument Used: 5mm curette Tissue Removed: Yellow slough, devitalized tissue Severity: Fat Layer Exposed Amount of bleeding with debridement: Mild Bleeding Controlled with: Compression and gauze Patient tolerated procedure well - Additional Wound Wound debrided: right superior cota Laterality: Right Type of Debridement: Excisional debridement Anesthesia Used: 4% Lidocaine Solution Depth: Down to and including healthy tissue, in the subcutaneous layer Percentage of wound debrided: 100 Instrument Used: 3mm curette Tissue Removed: Yellow slough, devitalized tissue Severity: Fat Layer Exposed Amount of bleeding with debridement: Mild Bleeding Controlled with: Compression and gauze Patient tolerated procedure: Patient tolerated procedure well Assessment/Plan Active Problems (Last Updated 04/17/20 @ 12:52 by Chasidy Pedraza) Traumatic open wound of right lower leg with delayed healing (Chronic) Traumatic open wound of right lower leg with infection (Chronic) Cellulitis and abscess of right leg (Chronic) Coronary heart disease (Chronic) Traumatic wound (Chronic) Asthma (Chronic) Hypertension (Chronic) Assessment: right lower extremity wounds due to hematoma from trauma - hitting step/box Plan: [place]'s wounds were evaluated and debrided today. Will continue to dress his superior wound with Hydrogel and adaptic and will continue to apply Snap vac to his inferior wound. Due to the depth and undermining of the inferior wound as well as heavy drainage, he would benefit from application and use of a SNAP vac wound vac to heal his wound more quickly and this has improved the depth significantly and helped with granulation. He is homebound, does not drive and relies on hospital transportation or others to take him to appointments. Home Health will be consulted to assist him in doing dressing changes. Will use TUSHAR bandages for compression. Patient has been advised to elevate his lower extremities for the long-term, to minimize swelling and edema. Encouraged increase protein intake to aid in wound healing. Labs were reviewed from 03/23/2020 and show mild anemia, normal protein and mild renal insufficiency (GFR 51) and normal glucose. It may be beneficial to repeat A1C or request labs from his PCP. In 2018, he had an elevated A1C of 7.7%. Vascular testing in 2018 showed no venous insufficiency and arterial studies in 2017 did not show any arterial disease. Xray of his right LE 04/17/2020 was normal without any evid ence for underlying fracture or bone disease. F/U in 1 week or sooner if needed.
== END 2020-05-18 23:59 ==
LOC: WC 14:00
PROVIDERS: PCP Internal Medicine; Referring Provider Physician Assistant; Visit Provider Family Medicine
DX: S81.801S Unspecified open wound, right lower leg, sequela (principal); S80.11XS Contusion of right lower leg, sequela; W22.09XS Striking against other stationary object, sequela; I10 Essential (primary) hypertension; J45.909 Unspecified asthma, uncomplicated; L03.115 Cellulitis of right lower limb; L02.415 Cutaneous abscess of right lower limb; I25.10 Atherosclerotic heart disease of native coronary artery without angina pectoris; R60.0 Localized edema; E78.5 Hyperlipidemia, unspecified; Z86.711 Personal history of pulmonary embolism; K21.9 Gastro-esophageal reflux disease without esophagitis; M06.9 Rheumatoid arthritis, unspecified; M19.90 Unspecified osteoarthritis, unspecified site; Z85.46 Personal history of malignant neoplasm of prostate; I27.21 Secondary pulmonary arterial hypertension; E66.9 Obesity, unspecified; Z79.899 Other long term (current) drug therapy; Z79.82 Long term (current) use of aspirin; Z79.51 Long term (current) use of inhaled steroids
CPT/HCPCS: 11042; 97605; 97607; 99213; G0463

== ENCOUNTER → 2020-06-05 12:07 | Outpatient (CLI) | payer MEDICARE, SELFPAY ==
[2020-06-05 11:21] VITALS: BMI 30.1
--- NOTE | 2020-06-05 12:15 | RAD_ITS ---
HISTORY: ABNORMAL LUNG SOUNDS ON AUSCULTATION IN OFFICE ADDITIONAL HISTORY: None provided. COMPARISON: 12/04/2018 EXAMINATION/TECHNIQUE: XR Chest 2 Views Number of images including paperwork: 2 FINDINGS: LUNGS AND PLEURA: No consolidation, mass or pleural effusion. Linear basilar subsegmental atelectasis versus scarring appears similar. Calcified pleural plaques again seen. Hyperinflation. CARDIAC SILHOUETTE: Stable. MEDIASTINUM AND ABHIJIT: Stable. UPPER ABDOMEN: Unremarkable. SKELETON AND SOFT TISSUES: No acute findings. OTHER DEVICES AND HARDWARE: Suture anchors in the left humeral head. RAD/Chest PA and Lateral IMPRESSION: No acute cardiopulmonary abnormality. Hyperinflation suggesting COPD. Calcified pleural plaques. at 0125 Reported and signed by: Celina Winn MD Electronically Signed: Celina Winn MD at 1:25 EST Tel , Service support ,
== END ==
PROVIDERS: PCP Internal Medicine; Referring Provider Physician Assistant Medical; Visit Provider Physician Assistant Medical
DX: R06.02 Shortness of breath (principal)
CPT/HCPCS: 71046

== ENCOUNTER 2020-06-16 08:30 | Outpatient (RCR) | payer MEDICARE, SELFPAY ==
[2020-05-19 00:37] VITALS: BP 124/68; PULSE 97; RESP 20; TEMP 36.6
[2020-05-26 08:13] VITALS: BP 136/62; PULSE 84; RESP 18; TEMP 36.6; BMI 29.6
--- NOTE | 2020-05-26 10:56 | PCM.WC.PN ---
(1) Chronic 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 Status: Chronic Code(s): L97.912 - Non-pressure chronic ulcer of unspecified part of right lower leg with fat layer exposed (2) Venous ulcer with fat layer exposed Status: Chronic Code(s): I83.009 - Varicose veins of unspecified lower extremity with ulcer of unspecified site; L97.902 - Non-pressure chronic ulcer of unspecified part of unspecified lower leg with fat layer exposed (3) Traumatic open wound of right lower leg with delayed healing Status: Chronic Code(s): S81.801D - Unspecified open wound, right lower leg, subsequent encounter (4) Coronary heart disease Status: Chronic Qualifiers: Coronary Disease-Associated Artery/Lesion type: unspecified vessel or lesion type [place] vs. transplanted heart: unspecified whether [place] or transplanted heart Associated angina: with unspecified angina Qualified Code(s): I25.119 - Atherosclerotic heart disease of [place] coronary artery with unspecified angina pectoris Code(s): I25.10 - Atherosclerotic heart disease of [place] coronary artery without angina pectoris (5) Essential (primary) hypertension Status: Chronic Code(s): I10 - Essential (primary) hypertension Type of Wound Date of Service: 05/26/20 Chief Complaint: ulcer of right lower leg History of Wound: This is an 79-year-old male who was in his normal state of health until approximately March 16, 2020, at which time he sustained an injury to his right cota distally that occurred from bumping his leg on a step. He went to the ER on 03/23/2020 and was given IV Unasyn x 1 dose and the ER physician wanted him to stay for surgical debridement but he refused and saw general surgery as an outpatient on 03/24/2020 where an I and D and hematoma evacuation was performed as an outpatient by Dr. Macias in her office. Clot was removed and a culture taken. He was given Keflex and Bactrim DS and the wound was packed with gauze packing. It was followed for 2 weeks and was improving. On 04/17/2020, his home health aid saw his leg and suggested that he see a physician as his cota area was erythematous, warm and dswollen. [facility] and an xray and wound culture were completed and he was started on Clindamycin and referred to the wound center for additional treatment. He has been using gauze to dress his wound. He also bumped his upper cota of his right leg on a box a few days ago and it is bruised and draining as well. He does have compression stockings to use for edema but has not been wearing them and he has had increased edema to his right leg. He denies any systemic signs of infection such as fever, chills, nausea, vomiting, fatigue. He has had venous studies showing no venous disease in October 2017 and arterial studies showing no arterial disease in 2016. Progress of Wound: [place] is here for follow up of right cota and right lateral lower leg wound s/p hematoma evacuation/I and D with delayed healing. He has venous insufficiency and chronic lower extremity edema b/l which have caused him to have recurrent wound of his legs. He is tolerating treatment with Snap vac and has had improvement in his wound. He struck his left foot on a chair and had an abarasion with surrounding erythema suggestive of cellulitis which has improved with antibiotic treatment. He denies any fever, chills, odor, pain, increased drainage. - Physical Exam Vital Signs Temp Pulse Resp BP 97.9 F 84 18 136/62 H 05/26/20 08:13 05/26/20 08:13 05/26/20 08:13 05/26/20 08:13 General: Alert, Oriented x3, Cooperative Oral: Moist Mucosa Lungs: Clear to auscultation Cardiovascular: Regular rate, Regular Rhythm Abdomen: Soft, Non Tender Extremities: No cyanosis, Capillary Refill Less than 3 Seconds, Edema Skin: Ulcer/ Wound Wound Measurements and Assessment WC - Nurse 1 - General Ulcer Measurement Start: 05/26/20 08:13 Freq: Status: Active Protocol: Activity Type Activity Date Activity User E-Sign Co-Sign Detail Recorded Client Recorded Date Recorded By Document 05/26/20 08:13 DL [id number] 05/26/20 08:26 DL 05/26/20 08:13 Wound Center Nurse 1 [Ulcer Assessment] 10. RLE inferior -Current Size (cm) - Length 2.8 -Current Size (cm) - Width 1.8 -Current Size (cm) - Depth 0.3 -Total Square Cm 5.04 -Photo Taken No -Exudate Amt Small -Wound Margin Distinct, Outline Attached -Granulation Amt Large (67-100%) -Granulation Quality Red -Necrosis Amt Small (1-33%) -Necrotic Tissue Type Adherent Slough -Structure Exposed N/A -Texture (Karin-wound Skin Appearance) Scarring -Moisture (Karin-wound Skin Appearance No Abnormality ) -Color (Karin-wound Skin Appearance) Hemosiderin Staining -Temperature (Karin-wound Skin No Abnormality Appearance) (Pt Warm) -Tenderness on Palpation (Karin-wound No Skin Appearance) -Ulcer Cleansing Wound Cleanser -Foul Odor after Cleansing No -Anesthetic Used 4% Lidocaine Solution 9. RLE superior -Current Size (cm) - Length 0.1 -Current Size (cm) - Width 0.1 -Current Size (cm) - Depth 0.1 -Total Square Cm 0.01 -Photo Taken No -Exudate Amt None Present -Wound Margin Flat & Intact -Granulation Amt Large (67-100%) -Granulation Quality Pale -Necrosis Amt Small (1-33%) -Necrotic Tissue Type Adherent Slough -Structure Exposed N/A -Texture (Karin-wound Skin Appearance) Scarring -Moisture (Karin-wound Skin Appearance Dry/Scaly ) -Color (Karin-wound Skin Appearance) No Abnormality -Temperature (Karin-wound Skin No Abnormality Appearance) (Pt Warm) -Tenderness on Palpation (Karin-wound No Skin Appearance) -Ulcer Cleansing Wound Cleanser -Foul Odor after Cleansing No -Anesthetic Used 4% Lidocaine Solution [Edema Assessment] -Right Calf (cm) 37 -Right Ankle (cm) 21.4 WC - Nurse 2 - General Ulcer CM Notes Start: 05/26/20 08:13 Freq: Status: Active Protocol: Activity Type Activity Date Activity User E-Sign Co-Sign Detail Recorded Client Recorded Date Recorded By Document 05/26/20 08:57 MW [id number] 05/26/20 09:05 MW 05/26/20 08:57 Wound Center Nurse 2 [Procedure/Treatment] 10. RLE inferior -Time 08:57 -Correct Patient Yes -Correct Side, Site, Position Yes -Correct Procedure Yes -Procedure Performed Yes -Type of Procedure Debridement -Clinical Debridement Subcutaneous -Tissue Removed Subcutaneous -Post Debridement (cm) - Length 2.5 -Post Debridement (cm) - Width 1.6 -Post Debridement (cm) - Depth 0.2 -Total Square (Post) (cm) 4.00 -Area of Debridement (cm) - Length 2.5 -Area of Debridement (cm) - Width 1.6 -Total Square (Area) (cm) 4.00 -Tunneling No -Undermining/Tunneling No -Circular Undermining No -Wound/Ulcer Outcome Not Healed -Ulcer Cleansing Rinsed/ Irrigated with Saline -Foul Odor after Cleansing No -Bioengineered Tissue No -Bleeding Controlled with Pressure -Offloading No -Treatment Response Procedure Tolerated Well -Debridement - Subq, 1st 20sq cm Yes 9. RLE superior -Time 08:58 -Correct Patient Yes -Correct Side, Site, Position Yes -Correct Procedure Yes -Procedure Performed No -Post Debridement (cm) - Length 0 -Post Debridement (cm) - Width 0 -Post Debridement (cm) - Depth 0 -Total Square (Post) (cm) 0 -Wound/Ulcer Outcome Healed- Epithelialized [See Physician Procedure note for Specifics] Pain Scale: 0-10 Numeric [Pain] -Is Patient Pain Free? Yes WC - Nurse 3 - General Ulcer D/C NN Start: 05/26/20 08:13 Freq: Status: Active Protocol: Activity Type Activity Date Activity User E-Sign Co-Sign Detail Recorded Client Recorded Date Recorded By Document 05/26/20 09:14 MW [id number] 05/26/20 09:15 MW 05/26/20 09:14 Wound Care Nurse 3 [Wound Dressing] 10. RLE inferior -Ulcer Cleansing Rinsed/ Irrigated with Saline -Foul Odor after Cleansing No -Negative Pressure Wound Therapy N/A -Primary Dressing Applied Aquacel Extra -Primary Dressing Covered/Secured Dry Gauze & with Roll Gauze, Secured with Tape -Aquacel Extra 1 [Post Procedure Tolerated] -Treatment Response Procedure Tolerated Well Teaching: Wound Center [Wound Center Education] (Items with an * have Printed Materials Available- Please identify what is given to patient under the Teaching materials given to patient and caregiver Section. Control Swelling with Leg Elevation -Person Taught Patient -Teaching Method Discussion -Response to teaching Verbalize understanding Dressing Your Wound -Person Taught Patient -Teaching Method Discussion -Response to teaching Verbalize understanding WC - Visit Discharge [Visit Discharge Information] -Discharge Condition Stable -Ambulatory Status Ambulatory -Transportation Private Auto -Medication Reconcilliation completed No & provided to patient/care provider -Clinical Summary of Care Provided Yes Psych/Mental Status: Normal Affect, Appropriate Debridement Note Post-Debridement Measurements/Treatment WC - Nurse 2 - General Ulcer CM Notes Start: 05/26/20 08:13 Freq: Status: Active Protocol: Activity Type Activity Date Activity User E-Sign Co-Sign Detail Recorded Client Recorded Date Recorded By Document 05/26/20 08:57 MW [id number] 05/26/20 09:05 MW 05/26/20 08:57 Wound Center Nurse 2 10. RLE inferior -Time 08:57 -Correct Patient Yes -Correct Side, Site, Position Yes -Correct Procedure Yes -Procedure Performed Yes -Type of Procedure Debridement -Clinical Debridement Subcutaneous -Tissue Removed Subcutaneous -Post Debridement (cm) - Length 2.5 -Post Debridement (cm) - Width 1.6 -Post Debridement (cm) - Depth 0.2 -Total Square (Post) (cm) 4.00 -Area of Debridement (cm) - Length 2.5 -Area of Debridement (cm) - Width 1.6 -Total Square (Area) (cm) 4.00 -Tunneling No -Undermining/Tunneling No -Circular Undermining No -Wound/Ulcer Outcome Not Healed -Ulcer Cleansing Rinsed/ Irrigated with Saline -Foul Odor after Cleansing No -Bioengineered Tissue No -Bleeding Controlled with Pressure -Offloading No -Treatment Response Procedure Tolerated Well -Debridement - Subq, 1st 20sq cm Yes 9. RLE superior -Time 08:58 -Correct Patient Yes -Correct Side, Site, Position Yes -Correct Procedure Yes -Procedure Performed No -Post Debridement (cm) - Length 0 -Post Debridement (cm) - Width 0 -Post Debridement (cm) - Depth 0 -Total Square (Post) (cm) 0 -Wound/Ulcer Outcome Healed- Epithelialized Pain Scale: 0-10 Numeric Is Patient Pain Free? Yes - Nurse 3 - General Ulcer D/C NN Start: 05/26/20 08:13 Freq: Status: Active Protocol: Activity Type Activity Date Activity User E-Sign Co-Sign Detail Recorded Client Recorded Date Recorded By Document 05/26/20 09:14 MW [id number] 05/26/20 09:15 MW 05/26/20 09:14 Wound Care Nurse 3 10. RLE inferior -Ulcer Cleansing Rinsed/ Irrigated with Saline -Foul Odor after Cleansing No -Negative Pressure Wound Therapy N/A -Primary Dressing Applied Aquacel Extra -Primary Dressing Covered/Secured with Dry Gauze & Roll Gauze, Secured with Tape -Aquacel Extra 1 Treatment Response Procedure Tolerated Well Teaching: Wound Center Control Swelling with Leg Elevation -Person Taught Patient -Teaching Method Discussion -Response to teaching Verbalize understanding Dressing Your Wound -Person Taught Patient -Teaching Method Discussion -Response to teaching Verbalize understanding WC - Visit Discharge Discharge Condition Stable Ambulatory Status Ambulatory Transportation Private Auto Medication Reconcilliation completed & No provided to patient/care provider Clinical Summary of Care Provided Yes Wound debrided: right LE inferior Laterality: Right Type of Debridement: Excisional debridement Anesthesia Used: 4% Lidocaine Solution Depth: Down to and including healthy tissue, in the subcutaneous layer Percentage of wound debrided: 100 Instrument Used: 3mm curette Tissue Removed: Yellow slough, devitalized tissue Severity: Fat Layer Exposed Amount of bleeding with debridement: Mild Bleeding Controlled with: Compression and gauze Patient tolerated procedure well Assessment/Plan Active Problems (Last Updated 04/17/20 @ 12:52 by Chasidy Pedraza) Traumatic open wound of right lower leg with delayed healing (Chronic) Chronic 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 (Chronic) Venous ulcer with fat layer exposed (Chronic) Coronary heart disease (Chronic) Essential (primary) hypertension (Chronic) Assessment: right lower extremity wounds due to hematoma from trauma - hitting step/box complicated by chronic venous insufficiency Plan: [place]'s wound was evaluated and debrided today. Superior wound is healed. Inferior wound has significantly improved with snap vac treatment and is now granulated and even with healthy tissue. Will change dressing to Aquacel extra changed every other day for moderate/heavy drainage. Given the chronicity of his wound it is complicated by venous insufficiency and etiology will be changed to venous ulcer. He would benefit from treatment with advanced wound healing product such as Epifix in order to heal his ulcer. He has completed over 6 weeks of conservative wound treatment. Will apply for use of this product through his insurance. He is homebound, does not drive and relies on hospital transportation or others to take him to appointments. Home Health will be consulted to assist him in doing dressing changes. Will use tubigrip for compression. Patient has been advised to elevate his lower extremities for the long-term, to minimize swelling and edema. Encouraged increase protein intake to aid in wound healing. Labs were reviewed from 03/23/2020 and show mild anemia, normal protein and mild renal insufficiency (GFR 51) and normal glucose. It may be beneficial to repeat A1C or request labs from his PCP. In 2018, he had an elevated A1C of 7.7%. Xray of his right LE 04/17/2020 was normal without any evidence for underlying fracture or bone disease. F/U in 1 week or sooner if needed.
[2020-06-02 08:35] VITALS: BP 138/67; PULSE 83; RESP 18; TEMP 36.6; BMI 29.6
--- NOTE | 2020-06-02 09:16 | PN.PCM_ITS ---
(1) Chronic 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 Status: Chronic Code(s): L97.912 - Non-pressure chronic ulcer of unspecified part of right lower leg with fat layer exposed (2) Venous ulcer with fat layer exposed Status: Chronic Code(s): I83.009 - Varicose veins of unspecified lower extremity with ulcer of unspecified site; L97.902 - Non-pressure chronic ulcer of unspecified part of unspecified lower leg with fat layer exposed (3) Traumatic open wound of right lower leg with delayed healing Status: Chronic Code(s): S81.801D - Unspecified open wound, right lower leg, subsequent encounter (4) Coronary heart disease Status: Chronic Qualifiers: Coronary Disease-Associated Artery/Lesion type: unspecified vessel or lesion type [place] vs. transplanted heart: unspecified whether [place] or transplanted heart Associated angina: with unspecified angina Qualified Code(s): I25.119 - Atherosclerotic heart disease of [place] coronary artery with unspecified angina pectoris Code(s): I25.10 - Atherosclerotic heart disease of [place] coronary artery without angina pectoris (5) Essential (primary) hypertension Status: Chronic Code(s): I10 - Essential (primary) hypertension Type of Wound Date of Service: 06/02/20 Chief Complaint: ulcer of right lower leg History of Wound: This is an 79-year-old male who was in his normal state of health until approximately March 16, 2020, at which time he sustained an injury to his right cota distally that occurred from bumping his leg on a step. He went to the ER on 03/23/2020 and was given IV Unasyn x 1 dose and the ER physician wanted him to stay for surgical debridement but he refused and saw general surgery as an outpatient on 03/24/2020 where an I and D and hematoma evacuation was performed as an outpatient by Dr. Macias in her office. Clot was removed and a culture taken. He was given Keflex and Bactrim DS and the wound was packed with gauze packing. It was followed for 2 weeks and was improving. On 04/17/2020, his home health aid saw his leg and suggested that he see a physician as his cota area was erythematous, warm and dswollen. [facility] and an xray and wound culture were completed and he was started on Clindamycin and referred to the wound center for additional treatment. He has been using gauze to dress his wound. He also bumped his upper cota of his right leg on a box a few days ago and it is bruised and draining as well. He does have compression stockings to use for edema but has not been wearing them and he has had increased edema to his right leg. He denies any systemic signs of infection such as fever, chills, nausea, vomiting, fatigue. He has had venous studies showing no venous disease in October 2017 and arterial studies showing no arterial disease in 2016. Progress of Wound: [place] is here for follow up of right cota and right lateral lower leg wound s/p hematoma evacuation/I and D with delayed healing. He has venous insufficiency and chronic lower extremity edema b/l which have caused him to have recurrent wounds of his legs. He tolerated treatment with Aquacel extra and has had improvement in his wound. He struck his left foot on a chair and had an abarasion with surrounding erythema suggestive of cellulitis which has improved with antibiotic treatment. He denies any fever, chills, odor, pain, increased drainage. - Physical Exam Vital Signs Temp Pulse Resp BP 97.8 F 83 18 138/67 H 06/02/20 08:35 06/02/20 08:35 06/02/20 08:35 06/02/20 08:35 General: Alert, Oriented x3, Cooperative, No apparent distress HEENT: Atraumatic, Normocephalic Oral: Moist Mucosa Abdomen: Obese Extremities: Edema Skin: Ulcer/ Wound Wound Measurements and Assessment WC - Nurse 1 - General Ulcer Measurement Start: 05/26/20 08:13 Freq: Status: Active Protocol: Activity Type Activity Date Activity User E-Sign Co-Sign Detail Recorded Client Recorded Date Recorded By Document 06/02/20 08:35 RB [id number] 06/02/20 08:37 RB 06/02/20 08:35 Wound Center Nurse 1 [Ulcer Assessment] 10. RLE inferior -Combined with other wound No -Current Size (cm) - Length 2 -Current Size (cm) - Width 1.2 -Current Size (cm) - Depth 0.2 -Total Square Cm 2.4 -Tunneling No -Undermining/Tunneling No -Circular Undermining No -Exudate Amt Small -Exudate Type Serosanguineous -Wound Margin Flat & Intact -Granulation Amt Medium (34-66%) -Granulation Quality [place] -Slough/Fibrin Yes -Necrosis Amt Medium (34-66%) -Necrotic Tissue Type Adherent Slough -Structure Exposed N/A -Texture (Karin-wound Skin Appearance) Assessed, Scarring -Moisture (Karin-wound Skin Appearance Assessed ) -Color (Karin-wound Skin Appearance) Assessed -Temperature (Karin-wound Skin No Abnormality Appearance) (Pt Warm) -Tenderness on Palpation (Karin-wound No Skin Appearance) -Ulcer Cleansing Wound Cleanser -Foul Odor after Cleansing No -Anesthetic Used 5% Lidocaine Gel [Edema Assessment] -Lower Limb Edema Present Yes -Right Calf (cm) 39.5 -Right Ankle (cm) 23.2 WC - Nurse 2 - General Ulcer CM Notes Start: 05/26/20 08:13 Freq: Status: Active Protocol: Activity Type Activity Date Activity User E-Sign Co-Sign Detail Recorded Client Recorded Date Recorded By Document 06/02/20 08:45 MW [id number] 06/02/20 08:52 MW 06/02/20 08:45 Wound Center Nurse 2 [Procedure/Treatment] 10. RLE inferior -Time 08:45 -Correct Patient Yes -Correct Side, Site, Position Yes -Correct Procedure Yes -Procedure Performed Yes -Type of Procedure Debridement -Clinical Debridement Subcutaneous -Tissue Removed Subcutaneous -Post Debridement (cm) - Length 1.4 -Post Debridement (cm) - Width 1.0 -Post Debridement (cm) - Depth 0.1 -Total Square (Post) (cm) 1.40 -Area of Debridement (cm) - Length 1.4 -Area of Debridement (cm) - Width 1.0 -Total Square (Area) (cm) 1.40 -Tunneling No -Undermining/Tunneling No -Circular Undermining No -Wound/Ulcer Outcome Not Healed -Ulcer Cleansing Rinsed/ Irrigated with Saline -Foul Odor after Cleansing No -Bioengineered Tissue No -Bleeding Controlled with Pressure -Offloading No -Treatment Response Procedure Tolerated Well -Debridement - Subq, 1st 20sq cm Yes [See Physician Procedure note for Specifics] Pain Scale: 0-10 Numeric [Pain] -Is Patient Pain Free? Yes JERRY - Nurse 3 - General Ulcer D/C NN Start: 05/26/20 08:13 Freq: Status: Active Protocol: Activity Type Activity Date Activity User E-Sign Co-Sign Detail Recorded Client Recorded Date Recorded By Document 06/02/20 08:53 MW [id number] 06/02/20 08:54 MW 06/02/20 08:53 Wound Care Nurse 3 [Wound Dressing] 10. RLE inferior -Ulcer Cleansing Rinsed/ Irrigated with Saline -Foul Odor after Cleansing No -Negative Pressure Wound Therapy N/A -Primary Dressing Applied Aquacel Extra -Primary Dressing Covered/Secured Dry Gauze & with Roll Gauze, Secured with Tape -Aquacel Extra 1 [Compression Applied] Right -Other single layer tubigrip [Post Procedure Tolerated] -Treatment Response Procedure Tolerated Well Pain Scale: 0-10 Numeric [Pain] -Is Patient Pain Free? Yes Teaching: Wound Center [Wound Center Education] (Items with an * have Printed Materials Available- Please identify what is given to patient under the Teaching materials given to patient and caregiver Section. Dressing Your Wound -Person Taught Patient -Teaching Method Discussion, Demonstration -Response to teaching Verbalize understanding WC - Visit Discharge [Visit Discharge Information] -Discharge Condition Stable -Ambulatory Status Ambulatory -Transportation Private Auto -Accompanied by self -Medication Reconcilliation completed No & provided to patient/care provider -Clinical Summary of Care Provided Yes Psych/Mental Status: Normal Affect, Appropriate Debridement Note Post-Debridement Measurements/Treatment WC - Nurse 2 - General Ulcer CM Notes Start: 05/26/20 08:13 Freq: Status: Active Protocol: Activity Type Activity Date Activity User E-Sign Co-Sign Detail Recorded Client Recorded Date Recorded By Document 05/26/20 08:57 MW [id number] 05/26/20 09:05 MW Document 06/02/20 08:45 MW [id number] 06/02/20 08:52 MW 05/26/20 06/02/20 08:57 08:45 Wound Center Nurse 2 10. RLE inferior -Time 08:57 08:45 -Correct Patient Yes Yes -Correct Side, Site, Position Yes Yes -Correct Procedure Yes Yes -Procedure Performed Yes Yes -Type of Procedure Debridement Debridement -Clinical Debridement Subcutaneous Subcutaneous -Tissue Removed Subcutaneous Subcutaneous -Post Debridement (cm) - Length 2.5 1.4 -Post Debridement (cm) - Width 1.6 1.0 -Post Debridement (cm) - Depth 0.2 0.1 -Total Square (Post) (cm) 4.00 1.40 -Area of Debridement (cm) - Length 2.5 1.4 -Area of Debridement (cm) - Width 1.6 1.0 -Total Square (Area) (cm) 4.00 1.40 -Tunneling No No -Undermining/Tunneling No No -Circular Undermining No No -Wound/Ulcer Outcome Not Healed Not Healed -Ulcer Cleansing Rinsed/ Rinsed/ Irrigated with Irrigated with Saline Saline -Foul Odor after Cleansing No No -Bioengineered Tissue No No -Bleeding Controlled with Pressure Pressure -Offloading No No -Treatment Response Procedure Procedure Tolerated Well Tolerated Well -Debridement - Subq, 1st 20sq cm Yes Yes 9. RLE superior -Time 08:58 -Correct Patient Yes -Correct Side, Site, Position Yes -Correct Procedure Yes -Procedure Performed No -Post Debridement (cm) - Length 0 -Post Debridement (cm) - Width 0 -Post Debridement (cm) - Depth 0 -Total Square (Post) (cm) 0 -Wound/Ulcer Outcome Healed- Epithelialized Pain Scale: 0-10 Numeric Is Patient Pain Free? Yes Yes WC - Nurse 3 - General Ulcer D/C NN Start: 05/26/20 08:13 Freq: Status: Active Protocol: Activity Type Activity Date Activity User E-Sign Co-Sign Detail Recorded Client Recorded Date Recorded By Document 05/26/20 09:14 MW [id number] 05/26/20 09:15 MW Document 06/02/20 08:53 MW [id number] 06/02/20 08:54 MW 05/26/20 06/02/20 09:14 08:53 Wound Care Nurse 3 10. RLE inferior -Ulcer Cleansing Rinsed/ Rinsed/ Irrigated with Irrigated with Saline Saline -Foul Odor after Cleansing No No -Negative Pressure Wound Therapy N/A N/A -Primary Dressing Applied Aquacel Extra Aquacel Extra -Primary Dressing Covered/Secured with Dry Gauze & Dry Gauze & Roll Gauze, Roll Gauze, Secured with Secured with Tape Tape -Aquacel Extra 1 1 Right -Other single layer tubigrip Treatment Response Procedure Procedure Tolerated Well Tolerated Well Pain Scale: 0-10 Numeric Is Patient Pain Free? Yes Teaching: Wound Center Control Swelling with Leg Elevation -Person Taught Patient -Teaching Method Discussion -Response to teaching Verbalize understanding Dressing Your Wound -Person Taught Patient Patient -Teaching Method Discussion Discussion, Demonstration -Response to teaching Verbalize Verbalize understanding understanding WC - Visit Discharge Discharge Condition Stable Stable Ambulatory Status Ambulatory Ambulatory Transportation Private Auto Private Auto Accompanied by self Medication Reconcilliation completed & No No provided to patient/care provider Clinical Summary of Care Provided Yes Yes Wound debrided: Right LE inferior Laterality: Right Type of Debridement: Excisional debridement Anesthesia Used: 4% Lidocaine Solution, 5% Lidocaine Gel Depth: Down to and including healthy tissue, in the subcutaneous layer Percentage of wound debrided: 100 Instrument Used: 5mm curette Tissue Removed: yellow slough, devitalized tissue Severity: Fat Layer Exposed Amount of bleeding with debridement: Mild Bleeding Controlled with: Compression and gauze Patient tolerated procedure well Assessment/Plan Active Problems (Last Updated 04/17/20 @ 12:52 by Chasidy Pedraza) Traumatic open wound of right lower leg with delayed healing (Chronic) Chronic 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 (Chronic) Venous ulcer with fat layer exposed (Chronic) Coronary heart disease (Chronic) Essential (primary) hypertension (Chronic) Assessment: right lower extremity wounds due to hematoma from trauma - hitting step/box complicated by chronic venous insufficiency Plan: [place]'s wound was evaluated and debrided today. Superior wound remains healed. Inferior wound has significantly improved with Aquacel Extra. Will change dressing to Aquacel extra changed every other day for moderate/heavy drainage. Given the chronicity of his wound it is complicated by venous insufficiency and etiology will be changed to venous ulcer. He would benefit from treatment with advanced wound healing product such as Epifix in order to heal his ulcer. He has completed over 7 weeks of conservative wound treatment. Will apply for use of this product through his insurance, approval is pending. He is homebound, does not drive and relies on hospital transportation or others to take him to appointments. Home Health will be consulted to assist him in doing dressing changes. Will use tubigrip for compression. Patient has been advised to elevate his lower extremities for the long-term, to minimize swelling and edema. Encouraged increase protein intake to aid in wound healing. Labs were reviewed from 03/23/2020 and show mild anemia, normal protein and mild renal insufficiency (GFR 51) and normal glucose. It may be beneficial to repeat A1C or request labs from his PCP. In 2018, he had an elevated A1C of 7.7%. Xray of his right LE 04/17/2020 was normal without any evidence for underlying fracture or bone disease. F/U in 1 week or sooner if needed.
[2020-06-09 09:27] VITALS: BP 131/69; PULSE 74; RESP 18; TEMP 36.7; BMI 29.6
--- NOTE | 2020-06-09 10:58 | PCM.WC.PN ---
(1) Chronic 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 Status: Chronic Code(s): L97.912 - Non-pressure chronic ulcer of unspecified part of right lower leg with fat layer exposed (2) Venous ulcer with fat layer exposed Status: Chronic Code(s): I83.009 - Varicose veins of unspecified lower extremity with ulcer of unspecified site; L97.902 - Non-pressure chronic ulcer of unspecified part of unspecified lower leg with fat layer exposed (3) Traumatic open wound of right lower leg with delayed healing Status: Chronic Code(s): S81.801D - Unspecified open wound, right lower leg, subsequent encounter (4) Coronary heart disease Status: Chronic Qualifiers: Coronary Disease-Associated Artery/Lesion type: unspecified vessel or lesion type [place] vs. transplanted heart: unspecified whether [place] or transplanted heart Associated angina: with unspecified angina Qualified Code(s): I25.119 - Atherosclerotic heart disease of [place] coronary artery with unspecified angina pectoris Code(s): I25.10 - Atherosclerotic heart disease of [place] coronary artery without angina pectoris (5) Essential (primary) hypertension Status: Chronic Code(s): I10 - Essential (primary) hypertension Type of Wound Date of Service: 06/09/20 Chief Complaint: ulcer of right lower leg History of Wound: This is an 79-year-old male who was in his normal state of health until approximately March 16, 2020, at which time he sustained an injury to his right cota distally that occurred from bumping his leg on a step. He went to the ER on 03/23/2020 and was given IV Unasyn x 1 dose and the ER physician wanted him to stay for surgical debridement but he refused and saw general surgery as an outpatient on 03/24/2020 where an I and D and hematoma evacuation was performed as an outpatient by Dr. Macias in her office. Clot was removed and a culture taken. He was given Keflex and Bactrim DS and the wound was packed with gauze packing. It was followed for 2 weeks and was improving. On 04/17/2020, his home health aid saw his leg and suggested that he see a physician as his cota area was erythematous, warm and dswollen. [facility] and an xray and wound culture were completed and he was started on Clindamycin and referred to the wound center for additional treatment. He has been using gauze to dress his wound. He also bumped his upper cota of his right leg on a box a few days ago and it is bruised and draining as well. He does have compression stockings to use for edema but has not been wearing them and he has had increased edema to his right leg. He denies any systemic signs of infection such as fever, chills, nausea, vomiting, fatigue. He has had venous studies showing no venous disease in October 2017 and arterial studies showing no arterial disease in 2016. Progress of Wound: [place] is here for follow up of right cota and right lateral lower leg wound s/p hematoma evacuation/I and D with delayed healing. He has venous insufficiency and chronic lower extremity edema b/l which have caused him to have recurrent wounds of his legs. He tolerated treatment with Aquacel extra and has had improvement in his wound. He denies any fever, chills, odor, pain, increased drainage. - Physical Exam Vital Signs Temp Pulse Resp BP 98.1 F 74 18 131/69 H 06/09/20 09:27 06/09/20 09:27 06/09/20 09:27 06/09/20 09:27 General: Alert, Oriented x3, Cooperative, No apparent distress HEENT: Atraumatic, Normocephalic Oral: Moist Mucosa Neck: Supple Abdomen: Soft, Non Tender, Obese Extremities: Edema Skin: Ulcer/ Wound Wound Measurements and Assessment WC - Nurse 1 - General Ulcer Measurement Start: 05/26/20 08:13 Freq: Status: Active Protocol: Activity Type Activity Date Activity User E-Sign Co-Sign Detail Recorded Client Recorded Date Recorded By Document 06/09/20 09:27 [id number] 06/09/20 09:31 [id number] 06/09/20 09:27 Wound Center Nurse 1 [Ulcer Assessment] 10. RLE inferior -Combined with other wound No -Current Size (cm) - Length 1.8 -Current Size (cm) - Width 1.0 -Current Size (cm) - Depth 0.2 -Total Square Cm 1.80 -Photo Taken No -Epithelialization Medium 34-66% -Tunneling No -Undermining/Tunneling No -Circular Undermining No -Exudate Amt Small -Exudate Type Serosanguineous -Wound Margin Flat & Intact -Granulation Amt None Present (0 %) -Slough/Fibrin Yes -Necrosis Amt Large (67-100%) -Necrotic Tissue Type Adherent Slough -Structure Exposed N/A -Texture (Karin-wound Skin Appearance) Assessed, Localized Edema -Moisture (Karin-wound Skin Appearance Assessed,Dry/ ) Scaly -Color (Karin-wound Skin Appearance) Assessed -Temperature (Karin-wound Skin No Abnormality Appearance) (Pt Warm) -Tenderness on Palpation (Karin-wound No Skin Appearance) -Ulcer Cleansing Rinsed/ Irrigated with Saline -Foul Odor after Cleansing No -Anesthetic Used 4% Lidocaine Solution,5% Lidocaine Gel [Edema Assessment] -Lower Limb Edema Present Yes -Right Calf (cm) 38.7 -Right Ankle (cm) 24.0 WC - Nurse 2 - General Ulcer CM Notes Start: 05/26/20 08:13 Freq: Status: Active Protocol: Activity Type Activity Date Activity User E-Sign Co-Sign Detail Recorded Client Recorded Date Recorded By Document 06/09/20 10:06 MW [id number] 06/09/20 10:15 MW 06/09/20 10:06 Wound Center Nurse 2 [Procedure/Treatment] 10. RLE inferior -Time 10:10 -Correct Patient Yes -Correct Side, Site, Position Yes -Correct Procedure Yes -Procedure Performed Yes -Type of Procedure Debridement -Clinical Debridement Subcutaneous -Tissue Removed Subcutaneous -Post Debridement (cm) - Length 1.1 -Post Debridement (cm) - Width 1.0 -Post Debridement (cm) - Depth 0.1 -Total Square (Post) (cm) 1.10 -Area of Debridement (cm) - Length 1.1 -Area of Debridement (cm) - Width 1.0 -Total Square (Area) (cm) 1.10 -Tunneling No -Undermining/Tunneling No -Circular Undermining No -Wound/Ulcer Outcome Not Healed -Ulcer Cleansing Rinsed/ Irrigated with Saline -Foul Odor after Cleansing No -Bioengineered Tissue Yes -Type of Bioengineered Tissue Epifix 18mm Disc -Expiration Date 02/16/25 -Product Lot Number [id number] -Percent Used 100 -Lot number of Saline Used [id number] -Bleeding Controlled with Pressure -Offloading No -Treatment Response Procedure Tolerated Well -Debridement - Subq, 1st 20sq cm No -Apply Skin Sub - 1st 25 sq cm - Legs 1 -Epifix 18mm Disc 3 Query Text:18mm = 3 [See Physician Procedure note for Specifics] Pain Scale: 0-10 Numeric [Pain] -Is Patient Pain Free? Yes WC - Nurse 3 - General Ulcer D/C NN Start: 05/26/20 08:13 Freq: Status: Active Protocol: Activity Type Activity Date Activity User E-Sign Co-Sign Detail Recorded Client Recorded Date Recorded By Document 06/09/20 10:17 MW [id number] 06/09/20 10:19 MW 06/09/20 10:17 Wound Care Nurse 3 [Wound Dressing] 10. RLE inferior -Ulcer Cleansing Not Cleansed -Foul Odor after Cleansing No -Negative Pressure Wound Therapy N/A -Primary Dressing Covered/Secured Dry Gauze & with Roll Gauze, Secured with Tape [Compression Applied] Right -Lotion applied to leg before No compression wrap -Other SINGLE TUBIGRIP [Post Procedure Tolerated] -Treatment Response Procedure Tolerated Well Teaching: Wound Center [Wound Center Education] (Items with an * have Printed Materials Available- Please identify what is given to patient under the Teaching materials given to patient and caregiver Section. Control Swelling with Leg Elevation -Person Taught Patient -Teaching Method Discussion -Response to teaching Verbalize understanding Dressing Your Wound -Person Taught Patient -Teaching Method Discussion -Response to teaching Verbalize understanding WC - Visit Discharge [Visit Discharge Information] -Discharge Condition Stable -Ambulatory Status Ambulatory -Transportation Private Auto -Accompanied by SELF -Medication Reconcilliation completed No & provided to patient/care provider -Clinical Summary of Care Provided Yes Psych/Mental Status: Normal Affect, Appropriate Debridement Note Post-Debridement Measurements/Treatment WC - Nurse 2 - General Ulcer CM Notes Start: 05/26/20 08:13 Freq: Status: Active Protocol: Activity Type Activity Date Activity User E-Sign Co-Sign Detail Recorded Client Recorded Date Recorded By Document 05/26/20 08:57 MW [id number] 05/26/20 09:05 MW Document 06/02/20 08:45 MW [id number] 06/02/20 08:52 MW Document 06/09/20 10:06 MW [id number] 06/09/20 10:15 MW 05/26/20 06/02/20 06/09/20 08:57 08:45 10:06 Wound Center Nurse 2 10. RLE inferior -Time 08:57 08:45 10:10 -Correct Patient Yes Yes Yes -Correct Side, Site, Position Yes Yes Yes -Correct Procedure Yes Yes Yes -Procedure Performed Yes Yes Yes -Type of Procedure Debridement Debridement Debridement -Clinical Debridement Subcutaneous Subcutaneous Subcutaneous -Tissue Removed Subcutaneous Subcutaneous Subcutaneous -Post Debridement (cm) - Length 2.5 1.4 1.1 -Post Debridement (cm) - Width 1.6 1.0 1.0 -Post Debridement (cm) - Depth 0.2 0.1 0.1 -Total Square (Post) (cm) 4.00 1.40 1.10 -Area of Debridement (cm) - Length 2.5 1.4 1.1 -Area of Debridement (cm) - Width 1.6 1.0 1.0 -Total Square (Area) (cm) 4.00 1.40 1.10 -Tunneling No No No -Undermining/Tunneling No No No -Circular Undermining No No No -Wound/Ulcer Outcome Not Healed Not Healed Not Healed -Ulcer Cleansing Rinsed/ Rinsed/ Rinsed/ Irrigated with Irrigated with Irrigated with Saline Saline Saline -Foul Odor after Cleansing No No No -Bioengineered Tissue No No Yes -Type of Bioengineered Tissue Epifix 18mm Disc -Expiration Date 02/16/25 -Product Lot Number [id number] -Percent Used 100 -Lot number of Saline Used [id number] -Bleeding Controlled with Pressure Pressure Pressure -Offloading No No No -Treatment Response Procedure Procedure Procedure Tolerated Well Tolerated Well Tolerated Well -Debridement - Subq, 1st 20sq cm Yes Yes No -Apply Skin Sub - 1st 25 sq cm - Legs 1 -Epifix 18mm Disc 3 Query Text:18mm = 3 9. RLE superior -Time 08:58 -Correct Patient Yes -Correct Side, Site, Position Yes -Correct Procedure Yes -Procedure Performed No -Post Debridement (cm) - Length 0 -Post Debridement (cm) - Width 0 -Post Debridement (cm) - Depth 0 -Total Square (Post) (cm) 0 -Wound/Ulcer Outcome Healed- Epithelialized Pain Scale: 0-10 Numeric Is Patient Pain Free? Yes Yes Yes WC - Nurse 3 - General Ulcer D/C NN Start: 05/26/20 08:13 Freq: Status: Active Protocol: Activity Type Activity Date Activity User E-Sign Co-Sign Detail Recorded Client Recorded Date Recorded By Document 05/26/20 09:14 MW [id number] 05/26/20 09:15 MW Document 06/02/20 08:53 MW [id number] 06/02/20 08:54 MW Document 06/09/20 10:17 MW [id number] 06/09/20 10:19 MW 05/26/20 06/02/20 06/09/20 09:14 08:53 10:17 Wound Care Nurse 3 10. RLE inferior -Ulcer Cleansing Rinsed/ Rinsed/ Not Cleansed Irrigated with Irrigated with Saline Saline -Foul Odor after Cleansing No No No -Negative Pressure Wound Therapy N/A N/A N/A -Primary Dressing Applied Aquacel Extra Aquacel Extra -Primary Dressing Covered/Secured with Dry Gauze & Dry Gauze & Dry Gauze & Roll Gauze, Roll Gauze, Roll Gauze, Secured with Secured with Secured with Tape Tape Tape -Aquacel Extra 1 1 Right -Lotion applied to leg before No compression wrap -Other single layer SINGLE TUBIGRIP tubigrip Treatment Response Procedure Procedure Procedure Tolerated Well Tolerated Well Tolerated Well Pain Scale: 0-10 Numeric Is Patient Pain Free? Yes Teaching: Wound Center Control Swelling with Leg Elevation -Person Taught Patient Patient -Teaching Method Discussion Discussion -Response to teaching Verbalize Verbalize understanding understanding Dressing Your Wound -Person Taught Patient Patient Patient -Teaching Method Discussion Discussion, Discussion Demonstration -Response to teaching Verbalize Verbalize Verbalize understanding understanding understanding WC - Visit Discharge Discharge Condition Stable Stable Stable Ambulatory Status Ambulatory Ambulatory Ambulatory Transportation Private Auto Private Auto Private Auto Accompanied by self SELF Medication Reconcilliation completed & No No No provided to patient/care provider Clinical Summary of Care Provided Yes Yes Yes Wound debrided: RLE inferior Laterality: Right Type of Debridement: Excisional debridement Anesthesia Used: 4% Lidocaine Solution Depth: Down to and including healthy tissue, in the subcutaneous layer Percentage of wound debrided: 100 Instrument Used: 5mm curette Tissue Removed: Yellow slough, devitalized tissue Severity: Fat Layer Exposed Amount of bleeding with debridement: Mild Bleeding Controlled with: Compression and gauze Patient tolerated procedure well Assessment/Plan Active Problems (Last Updated 06/05/20 @ 11:37 by Raisa Mendoza) Traumatic open wound of right lower leg with delayed healing (Chronic) Chronic 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 (Chronic) Venous ulcer with fat layer exposed (Chronic) Coronary heart disease (Chronic) Essential (primary) hypertension (Chronic) Assessment: right lower extremity wounds due to hematoma from trauma - hitting step/box complicated by chronic venous insufficiency Plan: [place]'s wound was evaluated and debrided today. Superior wound remains healed. Inferior wound has improved with Aquacel Extra. He was approved for Epifix application. An 18 mm disc was applied to his wound today per synthetic filament extruder [employer] and secured with adaptic touch and steristrips. He is aware not to disrupt the dressing and avoid getting the dressing wet. Given the chronicity of his wound it is complicated by venous insufficiency and etiology will be changed to venous ulcer. He would benefit from treatment with advanced wound healing product such as Epifix in order to heal his ulcer. He has completed over 7 weeks of conservative wound treatment. Will apply for use of this product through his insurance, approval has been received. He is homebound, does not drive and relies on hospital transportation or others to take him to appointments. Home Health will be consulted to assist him in doing dressing changes. Will use tubigrip for compression. Patient has been advised to elevate his lower extremities for the long-term, to minimize swelling and edema. Encouraged increase protein intake to aid in wound healing. Labs were reviewed from 03/23/2020 and show mild anemia, normal protein and mild renal insufficiency (GFR 51) and normal glucose. It may be beneficial to repeat A1C or request labs from his PCP. In 2018, he had an elevated A1C of 7.7%. Xray of his right LE 04/17/2020 was normal without any evidence for underlying fracture or bone disease. F/U in 1 week or sooner if needed.
[2020-06-16 08:36] VITALS: BP 123/73; PULSE 83; RESP 18; TEMP 36.6; BMI 29.6
--- NOTE | 2020-06-16 09:29 | PN.PCM_ITS ---
(1) Chronic 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 Status: Chronic Code(s): L97.912 - Non-pressure chronic ulcer of unspecified part of right lower leg with fat layer exposed (2) Venous ulcer with fat layer exposed Status: Chronic Code(s): I83.009 - Varicose veins of unspecified lower extremity with ulcer of unspecified site; L97.902 - Non-pressure chronic ulcer of unspecified part of unspecified lower leg with fat layer exposed (3) Traumatic open wound of right lower leg with delayed healing Status: Chronic Code(s): S81.801D - Unspecified open wound, right lower leg, subsequent encounter (4) Coronary heart disease Status: Chronic Qualifiers: Coronary Disease-Associated Artery/Lesion type: unspecified vessel or lesion type [place] vs. transplanted heart: unspecified whether [place] or transplanted heart Associated angina: with unspecified angina Qualified Code(s): I25.119 - Atherosclerotic heart disease of [place] coronary artery with unspecified angina pectoris Code(s): I25.10 - Atherosclerotic heart disease of [place] coronary artery without angina pectoris (5) Essential (primary) hypertension Status: Chronic Code(s): I10 - Essential (primary) hypertension Type of Wound Date of Service: 06/16/20 Chief Complaint: ulcer of right lower leg History of Wound: This is an 79-year-old male who was in his normal state of health until approximately March 16, 2020, at which time he sustained an injury to his right cota distally that occurred from bumping his leg on a step. He went to the ER on 03/23/2020 and was given IV Unasyn x 1 dose and the ER physician wanted him to stay for surgical debridement but he refused and saw general surgery as an outpatient on 03/24/2020 where an I and D and hematoma evacuation was performed as an outpatient by Dr. Macias in her office. Clot was removed and a culture taken. He was given Keflex and Bactrim DS and the wound was packed with gauze packing. It was followed for 2 weeks and was improving. On 04/17/2020, his home health aid saw his leg and suggested that he see a physician as his cota area was erythematous, warm and dswollen. [facility] and an xray and wound culture were completed and he was started on Clindamycin and referred to the wound center for additional treatment. He has been using gauze to dress his wound. He also bumped his upper cota of his right leg on a box a few days ago and it is bruised and draining as well. He does have compression stockings to use for edema but has not been wearing them and he has had increased edema to his right leg. He denies any systemic signs of infection such as fever, chills, nausea, vomiting, fatigue. He has had venous studies showing no venous disease in October 2017 and arterial studies showing no arterial disease in 2016. Progress of Wound: [place] is here for follow up of right cota and right lateral lower leg wound s/p hematoma evacuation/I and D with delayed healing. He has venous insufficiency and chronic lower extremity edema b/l which have caused him to have recurrent wounds of his legs. He tolerated application of Epifix and has significant improvement. He denies any fever, chills, odor, pain, increased drainage. - Physical Exam Vital Signs Temp Pulse Resp BP 98 F 83 18 123/73 H 06/16/20 08:36 06/16/20 08:36 06/16/20 08:36 06/16/20 08:36 General: Alert, Oriented x3, Cooperative, No apparent distress HEENT: Atraumatic, Normocephalic Oral: Moist Mucosa Neck: Supple Abdomen: Obese Extremities: Edema Skin: Ulcer/ Wound Wound Measurements and Assessment WC - Nurse 1 - General Ulcer Measurement Start: 05/26/20 08:13 Freq: Status: Active Protocol: Activity Type Activity Date Activity User E-Sign Co-Sign Detail Recorded Client Recorded Date Recorded By Document 06/16/20 08:36 [id number] 06/16/20 08:38 RB 06/16/20 08:36 Wound Center Nurse 1 [Ulcer Assessment] 10. RLE inferior -Combined with other wound No -Current Size (cm) - Length 0.1 -Current Size (cm) - Width 0.1 -Current Size (cm) - Depth 0.1 -Total Square Cm 0.01 -Tunneling No -Undermining/Tunneling No -Circular Undermining No -Exudate Amt Small -Exudate Type Serosanguineous -Wound Margin Flat & Intact -Granulation Amt None Present (0 %) -Slough/Fibrin Yes -Necrosis Amt Large (67-100%) -Necrotic Tissue Type Adherent Slough -Structure Exposed N/A -Texture (Karin-wound Skin Appearance) Assessed -Moisture (Karin-wound Skin Appearance Assessed ) -Color (Karin-wound Skin Appearance) Assessed -Temperature (Karin-wound Skin No Abnormality Appearance) (Pt Warm) -Tenderness on Palpation (Karin-wound No Skin Appearance) -Ulcer Cleansing Wound Cleanser -Foul Odor after Cleansing No -Anesthetic Used 4% Lidocaine Solution [Edema Assessment] -Lower Limb Edema Present Yes -Right Calf (cm) 38.5 -Right Ankle (cm) 23.5 WC - Nurse 2 - General Ulcer CM Notes Start: 05/26/20 08:13 Freq: Status: Active Protocol: Activity Type Activity Date Activity User E-Sign Co-Sign Detail Recorded Client Recorded Date Recorded By Document 06/16/20 08:48 MW [id number] 06/16/20 08:58 MW 06/16/20 08:48 Wound Center Nurse 2 [Procedure/Treatment] 10. RLE inferior -Time 08:49 -Correct Patient Yes -Correct Side, Site, Position Yes -Correct Procedure Yes -Procedure Performed Yes -Type of Procedure Debridement -Clinical Debridement Subcutaneous -Tissue Removed Subcutaneous -Post Debridement (cm) - Length 0.5 -Post Debridement (cm) - Width 0.5 -Post Debridement (cm) - Depth 0.1 -Total Square (Post) (cm) 0.25 -Area of Debridement (cm) - Length 0.5 -Area of Debridement (cm) - Width 0.5 -Total Square (Area) (cm) 0.25 -Tunneling No -Undermining/Tunneling No -Circular Undermining No -Wound/Ulcer Outcome Not Healed -Ulcer Cleansing Rinsed/ Irrigated with Saline -Foul Odor after Cleansing No -Bioengineered Tissue Yes -Type of Bioengineered Tissue Epifix 18mm Disc -Expiration Date 02/16/25 -Product Lot Number [id number] -Percent Used 100 -Lot number of Saline Used [id number] -Bleeding Controlled with Pressure -Offloading No -Treatment Response Procedure Tolerated Well -Debridement - Subq, 1st 20sq cm Yes -Apply Skin Sub - 1st 25 sq cm - Legs 1 -Epifix 18mm Disc 3 Query Text:18mm = 3 [See Physician Procedure note for Specifics] Pain Scale: 0-10 Numeric [Pain] -Is Patient Pain Free? Yes WC - Nurse 3 - General Ulcer D/C NN Start: 05/26/20 08:13 Freq: Status: Active Protocol: Activity Type Activity Date Activity User E-Sign Co-Sign Detail Recorded Client Recorded Date Recorded By Document 06/16/20 09:01 MW [id number] 06/16/20 09:02 MW 06/16/20 09:01 Wound Care Nurse 3 [Wound Dressing] 10. RLE inferior -Ulcer Cleansing Not Cleansed -Foul Odor after Cleansing No -Negative Pressure Wound Therapy N/A -Primary Dressing Covered/Secured Dry Gauze & with Roll Gauze, Secured with Tape [Post Procedure Tolerated] -Treatment Response Procedure Tolerated Well Pain Scale: 0-10 Numeric [Pain] -Is Patient Pain Free? Yes Teaching: Wound Center [Wound Center Education] (Items with an * have Printed Materials Available- Please identify what is given to patient under the Teaching materials given to patient and caregiver Section. Dressing Your Wound -Person Taught Patient -Teaching Method Discussion -Response to teaching Verbalize understanding - Visit Discharge [Visit Discharge Information] -Discharge Condition Stable -Ambulatory Status Ambulatory -Transportation Private Auto -Accompanied by SELF -Medication Reconcilliation completed No & provided to patient/care provider -Clinical Summary of Care Provided Yes Psych/Mental Status: Normal Affect, Appropriate Debridement Note Post-Debridement Measurements/Treatment - Nurse 2 - General Ulcer CM Notes Start: 05/26/20 08:13 Freq: Status: Active Protocol: Activity Type Activity Date Activity User E-Sign Co-Sign Detail Recorded Client Recorded Date Recorded By Document 05/26/20 08:57 MW [id number] 05/26/20 09:05 MW Document 06/02/20 08:45 MW [id number] 06/02/20 08:52 MW Document 06/09/20 10:06 MW [id number] 06/09/20 10:15 MW Document 06/16/20 08:48 MW [id number] 06/16/20 08:58 MW 05/26/20 06/02/20 06/09/20 08:57 08:45 10:06 Wound Center Nurse 2 10. RLE inferior -Time 08:57 08:45 10:10 -Correct Patient Yes Yes Yes -Correct Side, Site, Position Yes Yes Yes -Correct Procedure Yes Yes Yes -Procedure Performed Yes Yes Yes -Type of Procedure Debridement Debridement Debridement -Clinical Debridement Subcutaneous Subcutaneous Subcutaneous -Tissue Removed Subcutaneous Subcutaneous Subcutaneous -Post Debridement (cm) - Length 2.5 1.4 1.1 -Post Debridement (cm) - Width 1.6 1.0 1.0 -Post Debridement (cm) - Depth 0.2 0.1 0.1 -Total Square (Post) (cm) 4.00 1.40 1.10 -Area of Debridement (cm) - Length 2.5 1.4 1.1 -Area of Debridement (cm) - Width 1.6 1.0 1.0 -Total Square (Area) (cm) 4.00 1.40 1.10 -Tunneling No No No -Undermining/Tunneling No No No -Circular Undermining No No No -Wound/Ulcer Outcome Not Healed Not Healed Not Healed -Ulcer Cleansing Rinsed/ Rinsed/ Rinsed/ Irrigated with Irrigated with Irrigated with Saline Saline Saline -Foul Odor after Cleansing No No No -Bioengineered Tissue No No Yes -Type of Bioengineered Tissue Epifix 18mm Disc -Expiration Date 02/16/25 -Product Lot Number [id number] -Percent Used 100 -Lot number of Saline Used [id number] -Bleeding Controlled with Pressure Pressure Pressure -Offloading No No No -Treatment Response Procedure Procedure Procedure Tolerated Well Tolerated Well Tolerated Well -Debridement - Subq, 1st 20sq cm Yes Yes No -Apply Skin Sub - 1st 25 sq cm - Legs 1 -Epifix 18mm Disc 3 Query Text:18mm = 3 9. RLE superior -Time 08:58 -Correct Patient Yes -Correct Side, Site, Position Yes -Correct Procedure Yes -Procedure Performed No -Post Debridement (cm) - Length 0 -Post Debridement (cm) - Width 0 -Post Debridement (cm) - Depth 0 -Total Square (Post) (cm) 0 -Wound/Ulcer Outcome Healed- Epithelialized Pain Scale: 0-10 Numeric Is Patient Pain Free? Yes Yes Yes 06/16/20 08:48 Wound Center Nurse 2 10. RLE inferior -Time 08:49 -Correct Patient Yes -Correct Side, Site, Position Yes -Correct Procedure Yes -Procedure Performed Yes -Type of Procedure Debridement -Clinical Debridement Subcutaneous -Tissue Removed Subcutaneous -Post Debridement (cm) - Length 0.5 -Post Debridement (cm) - Width 0.5 -Post Debridement (cm) - Depth 0.1 -Total Square (Post) (cm) 0.25 -Area of Debridement (cm) - Length 0.5 -Area of Debridement (cm) - Width 0.5 -Total Square (Area) (cm) 0.25 -Tunneling No -Undermining/Tunneling No -Circular Undermining No -Wound/Ulcer Outcome Not Healed -Ulcer Cleansing Rinsed/ Irrigated with Saline -Foul Odor after Cleansing No -Bioengineered Tissue Yes -Type of Bioengineered Tissue Epifix 18mm Disc -Expiration Date 02/16/25 -Product Lot Number [id number] -Percent Used 100 -Lot number of Saline Used [id number] -Bleeding Controlled with Pressure -Offloading No -Treatment Response Procedure Tolerated Well -Debridement - Subq, 1st 20sq cm Yes -Apply Skin Sub - 1st 25 sq cm - Legs 1 -Epifix 18mm Disc 3 Query Text:18mm = 3 9. RLE superior -Time -Correct Patient -Correct Side, Site, Position -Correct Procedure -Procedure Performed -Post Debridement (cm) - Length -Post Debridement (cm) - Width -Post Debridement (cm) - Depth -Total Square (Post) (cm) -Wound/Ulcer Outcome Pain Scale: 0-10 Numeric Is Patient Pain Free? Yes WC - Nurse 3 - General Ulcer D/C NN Start: 05/26/20 08:13 Freq: Status: Active Protocol: Activity Type Activity Date Activity User E-Sign Co-Sign Detail Recorded Client Recorded Date Recorded By Document 05/26/20 09:14 MW [id number] 05/26/20 09:15 MW Document 06/02/20 08:53 MW [id number] 06/02/20 08:54 MW Document 06/09/20 10:17 MW [id number] 06/09/20 10:19 MW Document 06/16/20 09:01 MW [id number] 06/16/20 09:02 MW 05/26/20 06/02/20 06/09/20 09:14 08:53 10:17 Wound Care Nurse 3 10. RLE inferior -Ulcer Cleansing Rinsed/ Rinsed/ Not Cleansed Irrigated with Irrigated with Saline Saline -Foul Odor after Cleansing No No No -Negative Pressure Wound Therapy N/A N/A N/A -Primary Dressing Applied Aquacel Extra Aquacel Extra -Primary Dressing Covered/Secured with Dry Gauze & Dry Gauze & Dry Gauze & Roll Gauze, Roll Gauze, Roll Gauze, Secured with Secured with Secured with Tape Tape Tape -Aquacel Extra 1 1 Right -Lotion applied to leg before No compression wrap -Other single layer SINGLE TUBIGRIP tubigrip Treatment Response Procedure Procedure Procedure Tolerated Well Tolerated Well Tolerated Well Pain Scale: 0-10 Numeric Is Patient Pain Free? Yes Teaching: Wound Center Control Swelling with Leg Elevation -Person Taught Patient Patient -Teaching Method Discussion Discussion -Response to teaching Verbalize Verbalize understanding understanding Dressing Your Wound -Person Taught Patient Patient Patient -Teaching Method Discussion Discussion, Discussion Demonstration -Response to teaching Verbalize Verbalize Verbalize understanding understanding understanding WC - Visit Discharge Discharge Condition Stable Stable Stable Ambulatory Status Ambulatory Ambulatory Ambulatory Transportation Private Auto Private Auto Private Auto Accompanied by self SELF Medication Reconcilliation completed & No No No provided to patient/care provider Clinical Summary of Care Provided Yes Yes Yes 06/16/20 09:01 Wound Care Nurse 3 10. RLE inferior -Ulcer Cleansing Not Cleansed -Foul Odor after Cleansing No -Negative Pressure Wound Therapy N/A -Primary Dressing Applied -Primary Dressing Covered/Secured with Dry Gauze & Roll Gauze, Secured with Tape -Aquacel Extra Right -Lotion applied to leg before compression wrap -Other Treatment Response Procedure Tolerated Well Pain Scale: 0-10 Numeric Is Patient Pain Free? Yes Teaching: Wound Center Control Swelling with Leg Elevation -Person Taught -Teaching Method -Response to teaching Dressing Your Wound -Person Taught Patient -Teaching Method Discussion -Response to teaching Verbalize understanding WC - Visit Discharge Discharge Condition Stable Ambulatory Status Ambulatory Transportation Private Auto Accompanied by SELF Medication Reconcilliation completed & No provided to patient/care provider Clinical Summary of Care Provided Yes Wound debrided: RLE inferior Laterality: Right Type of Debridement: Excisional debridement Anesthesia Used: 4% Lidocaine Solution Depth: Down to and including healthy tissue, in the subcutaneous layer Percentage of wound debrided: 100 Instrument Used: 3mm curette Tissue Removed: Yellow slough, devitalized tissue Severity: Fat Layer Exposed Amount of bleeding with debridement: Mild Bleeding Controlled with: Compression and gauze Patient tolerated procedure well Assessment/Plan Active Problems (Last Updated 06/05/20 @ 11:37 by Raisa Mendoza) Traumatic open wound of right lower leg with delayed healing (Chronic) Chronic 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 (Chronic) Venous ulcer with fat layer exposed (Chronic) Coronary heart disease (Chronic) Essential (primary) hypertension (Chronic) Assessment: right lower extremity wounds due to hematoma from trauma - hitting step/box complicated by chronic venous insufficiency Plan: [place]'s wound was evaluated and debrided today. Superior wound remains healed. Inferior wound has improved with Epfix application #1. Epifix application #2 applied today - 18 mm disc was applied to his wound today per janitor[employer] and secured with adaptic touch and steristrips. He is aware not to disrupt the dressing and avoid getting the dressing wet. Given the chronicity of his wound it is complicated by venous insufficiency and etiology will be changed to venous ulcer. He would benefit from treatment with advanced wound healing product such as Epifix in order to heal his ulcer. He has completed over 8 weeks of conservative wound treatment. Will apply for use of this product through his insurance, approval has been received. He is homebound, does not drive and relies on hospital transportation or others to take him to appointments. Home Health will be consulted to assist him in doing dressing changes. Will use tubigrip for compression. Patient has been advised to elevate his lower extremities for the long-term, to minimize swelling and edema. Encouraged increase protein intake to aid in wound healing. Labs were reviewed from 03/23/2020 and show mild anemia, normal protein and mild renal insufficiency (GFR 51) and normal glucose. It may be beneficial to repeat A1C or request labs from his PCP. In 2018, he had an elevated A1C of 7.7%. Xray of his right LE 04/17/2020 was normal without any evidence for underlying fracture or bone disease. F/U in 1 week or sooner if needed.
== END 2020-06-18 23:59 ==
LOC: WC 08:30
PROVIDERS: PCP Internal Medicine; Referring Provider Physician Assistant; Visit Provider Family Medicine
DX: I83.018 Varicose veins of right lower extremity with ulcer other part of lower leg (principal); L97.812 Non-pressure chronic ulcer of other part of right lower leg with fat layer exposed; I25.10 Atherosclerotic heart disease of native coronary artery without angina pectoris; I10 Essential (primary) hypertension; S90.812A Abrasion, left foot, initial encounter; W22.03XA Walked into furniture, initial encounter; R60.0 Localized edema
CPT/HCPCS: 11042; 15271; Q4186

== ENCOUNTER 2020-06-30 09:22 | Outpatient (RCR) | payer MEDICARE, SELFPAY ==
[2020-06-23 08:18] VITALS: BMI 30.4
== END 2020-06-30 23:59 ==
LOC: IMMUN 09:22
PROVIDERS: PCP Internal Medicine; Visit Provider Family Medicine
DX: Z23 Encounter for immunization (principal)
CPT/HCPCS: 0011A; 0012A

== ENCOUNTER → 2020-07-11 16:24 | Outpatient (CLI) | payer MEDICARE, SELFPAY ==
[2020-07-07 08:22] VITALS: BMI 30.4
[2020-07-11 17:17] LABS: Absolute Lymphocyte Count 0.86 X10^3/uL (0.83-4.51); Absolute Neutrophil Count 7.1 X10^3/uL (2.0-7.7); Basophil# 0.02 X10^3/uL; Basophil% 0.2 % (0-1); Eosinophil# 0.08 X10^3/uL; Eosinophils% 0.9 % (0-5); Hematocrit 33.8 % (40-54); Hemoglobin 10.3 g/dL (13.0-16.5); Lymphocyte # 0.86 X10^3/ul (4.0); Lymphocyte % 9.6 % (19-41); Mean Corp Hgb Conc 30.5 g/dL (32-36); Mean Corpuscular Hgb 27.7 pg (27.0-32.0); Mean Corpuscular Volume 90.9 fL (80-94); Mean Platelet Vol. 10.2 fl (6.2-12.0); Monocyte# 0.81 X10^3/uL; NRBC Flagged by Analyzer 0 % (0-5); Neutrophil # 7.14 X10^3/uL (2.7-7.7); Neutrophil % 79.5 % (47-70); Platelet Count 262 K/mm3 (150-450); RBC Distribution Width CV 14.5 % (11.6-14.6); RBC Distribution Width SD 47.8 fl (35.1-43.9); Red Blood Count 3.72 M/mm3 (4.6-6.2)
--- NOTE | 2020-07-11 17:19 | RAD_ITS ---
STUDY: X-RAY - ABDOMEN/PELVIS REASON FOR EXAM: Male, 79 years old. DIARRHEA TECHNIQUE: 5 views of the abdomen are obtained. COMPARISON: June 05, 2020 chest x-ray FINDINGS: The lungs are partially visualized. Pleural plaquing . There is mild cardiac enlargement. There are mildly distended loops of small bowel present. There is similar to lesser caliber large bowel. There is no demonstrated free abdominal air. The visualized liver, spleen and kidneys are grossly normal in size and morphology. This calcifications bilateral superficial femoral arteries. Normal soft tissue structures. There is a left side hip arthroplasty there is degenerative change in the lumbar spine.. RAD/Abd Inc Decub and/or Erect IMPRESSION: Distended loops of small bowel air-fluid levels suspicious for ileus. Cannot exclude early small bowel obstruction. Short-term interval follow-up is warranted. Electronically Signed: Jana Bowden MD at 5:58 EST Tel , Service support ,
[2020-07-11 17:54] LABS: Vitamin D,25 Hydroxy 28.4 ng/mL
[2020-07-11 18:05] LABS: ALB/GLOB Ratio 0.7 RATIO (0.9-2.4); AST(SGOT) 23 U/L (15-37); Alanine Aminotransfer ALT/SGPT 27 U/L (16-61); Albumin, Serum 3.3 g/dL (3.2-5.0); Alkaline Phosphatase 107 U/L (45-117); Anion Gap 7 (5-15); BUN 43 mg/dL (7-18); BUN/Creat Ratio 29.3 RATIO (10-20); Chloride 112 mmol/L (98-107); Cholesterol 122 mg/dL (200); Creatinine, Serum 1.47 mg/dL (0.70-1.30); EST Glomerular Filtration Rate 49 mL/min (>60); Est Glom Filt Rate - Afr Amer 59 mL/min (>60); Globulin 4.8 g/dL (2.2-4.2); Glucose 111 mg/dL (74-106); High Density Lipoprotein 70 mg/dL; Potassium 5.4 mmol/L (3.5-5.1); Protein, Total 8.1 g/dL (6.4-8.2); Sodium Level 139 mmol/L (136-145); Thyroid Stim Hormone (TSH) 7.94 uIU/mL (0.358-3.74); Triglycerides 89 mg/dL; Very Low Density Lipoprotein 18 mg/dL (5-40)
== END ==
PROVIDERS: PCP Family Medicine Geriatric Medicine; Referring Provider Family Medicine Geriatric Medicine; Visit Provider Family Medicine Geriatric Medicine
DX: E55.9 Vitamin D deficiency, unspecified (principal); E78.5 Hyperlipidemia, unspecified; R53.83 Other fatigue; R19.7 Diarrhea, unspecified
CPT/HCPCS: 36415; 74019; 80053; 80061; 82306; 84443; 85025

== ENCOUNTER → 2020-07-13 15:54 | Outpatient (CLI) | payer MEDICARE, SELFPAY ==
[2020-07-07 08:22] VITALS: BMI 30.4
[2020-07-13 17:14] LABS: Anion Gap 7 (5-15); BUN 43 mg/dL (7-18); BUN/Creat Ratio 29.9 RATIO (10-20); Calcium,Total 8.8 mg/dL (8.5-10.1); Chloride 112 mmol/L (98-107); Creatinine, Serum 1.44 mg/dL (0.70-1.30); EST Glomerular Filtration Rate 50 mL/min (>60); Est Glom Filt Rate - Afr Amer 60 mL/min (>60); Glucose 115 mg/dL (74-106); Potassium 4.4 mmol/L (3.5-5.1); Sodium Level 140 mmol/L (136-145)
== END ==
PROVIDERS: PCP Family Medicine Geriatric Medicine; Referring Provider Family Medicine Geriatric Medicine; Visit Provider Family Medicine Geriatric Medicine
DX: E87.5 Hyperkalemia (principal)
CPT/HCPCS: 36415; 80048

== ENCOUNTER 2020-07-14 08:30 | Outpatient (RCR) | payer MEDICARE, SELFPAY ==
[2020-06-19 00:32] VITALS: BP 123/73; PULSE 83; RESP 18; TEMP 36.6; BMI 30.1
[2020-06-21 12:37] VITALS: BMI 30.4
[2020-06-23 08:18] VITALS: BP 152/68; PULSE 81; RESP 18; TEMP 35.9; BMI 30.4
--- NOTE | 2020-06-23 09:31 | PN.PCM_ITS ---
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 Code(s): L97.912 - Non-pressure chronic ulcer of unspecified part of right lower leg with fat layer exposed (3) Venous ulcer with fat layer exposed Status: Chronic Code(s): I83.009 - Varicose veins of unspecified lower extremity with ulcer of unspecified site; L97.902 - Non-pressure chronic ulcer of unspecified part of unspecified lower leg with fat layer exposed Type of Wound Date of Service: 06/23/20 Chief Complaint: ulcer of right lower leg History of Wound: This is an 79-year-old male who was in his normal state of health until approximately March 16, 2020, at which time he sustained an injury to his right cota distally that occurred from bumping his leg on a step. He went to the ER on 03/23/2020 and was given IV Unasyn x 1 dose and the ER physician wanted him to stay for surgical debridement but he refused and saw general surgery as an outpatient on 03/24/2020 where an I and D and hematoma evacuation was performed as an outpatient by Dr. Macias in her office. Clot was removed and a culture taken. He was given Keflex and Bactrim DS and the wound was packed with gauze packing. It was followed for 2 weeks and was improving. On 04/17/2020, his home health aid saw his leg and suggested that he see a physician as his cota area was erythematous, warm and dswollen. [facility] and an xray and wound culture were completed and he was started on Clindamycin and referred to the wound center for additional treatment. He has been using gauze to dress his wound. He also bumped his upper cota of his right leg on a box a few days ago and it is bruised and draining as well. He does have compression stockings to use for edema but has not been wearing them and he has had increased edema to his right leg. He denies any systemic signs of infection such as fever, chills, nausea, vomiting, fatigue. He has had venous studies showing no venous disease in October 2017 and arterial studies showing no arterial disease in 2017. Progress of Wound: [place] is here for follow up of right cota and right lateral lower leg wound s/p hematoma evacuation/I and D with delayed healing. He has venous insufficiency and chronic lower extremity edema b/l which have caused him to have recurrent wounds of his legs. He tolerated application of Epifix and has improvement but he has had a reaction to the steristrips and had breakdown of his skin. He denies any fever, chills, odor, pain, increased drainage. - Physical Exam Vital Signs Temp Pulse Resp BP 96.7 F L 81 18 152/68 H 06/23/20 08:18 06/23/20 08:18 06/23/20 08:18 06/23/20 08:18 General: Alert, Oriented x3, Cooperative, No apparent distress HEENT: Atraumatic, Normocephalic Oral: Moist Mucosa Neck: Supple Abdomen: Soft, Non Tender Extremities: Edema Skin: Ulcer/ Wound Wound Measurements and Assessment WC - Nurse 1 - General Ulcer Measurement Start: 06/23/20 08:18 Freq: Status: Active Protocol: Activity Type Activity Date Activity User E-Sign Co-Sign Detail Recorded Client Recorded Date Recorded By Document 06/23/20 08:18 DL [id number] 06/23/20 08:27 DL 06/23/20 08:18 Wound Center Nurse 1 [Ulcer Assessment] 10. RLE inferior -Current Size (cm) - Length 0.1 -Current Size (cm) - Width 0.1 -Current Size (cm) - Depth 0.1 -Total Square Cm 0.01 -Photo Taken No -Exudate Amt None Present -Wound Margin Thickened -Granulation Amt Medium (34-66%) -Granulation Quality [place] -Necrosis Amt Medium (34-66%) -Necrotic Tissue Type Adherent Slough -Structure Exposed N/A -Texture (Karin-wound Skin Appearance) Scarring -Moisture (Karin-wound Skin Appearance Dry/Scaly ) -Color (Karin-wound Skin Appearance) Hemosiderin Staining -Temperature (Karin-wound Skin No Abnormality Appearance) (Pt Warm) -Tenderness on Palpation (Karin-wound No Skin Appearance) -Ulcer Cleansing Wound Cleanser -Foul Odor after Cleansing No -Anesthetic Used 4% Lidocaine Solution [Edema Assessment] -Right Calf (cm) 37 -Right Ankle (cm) 23 WC - Nurse 2 - General Ulcer CM Notes Start: 06/23/20 08:18 Freq: Status: Active Protocol: Activity Type Activity Date Activity User E-Sign Co-Sign Detail Recorded Client Recorded Date Recorded By Document 06/23/20 08:52 MW [id number] 06/23/20 09:05 MW 06/23/20 08:52 Wound Center Nurse 2 [Procedure/Treatment] 10. RLE inferior -Time 08:56 -Correct Patient Yes -Correct Side, Site, Position Yes -Correct Procedure Yes -Procedure Performed Yes -Type of Procedure Debridement -Clinical Debridement Subcutaneous -Tissue Removed Subcutaneous -Post Debridement (cm) - Length 0.4 -Post Debridement (cm) - Width 0.3 -Post Debridement (cm) - Depth 0.1 -Total Square (Post) (cm) 0.12 -Area of Debridement (cm) - Length 0.4 -Area of Debridement (cm) - Width 0.3 -Total Square (Area) (cm) 0.12 -Tunneling No -Undermining/Tunneling No -Circular Undermining No -Wound/Ulcer Outcome Not Healed -Ulcer Cleansing Rinsed/ Irrigated with Saline -Foul Odor after Cleansing No -Bioengineered Tissue Yes -Type of Bioengineered Tissue Epifix 18mm Disc -Expiration Date 03/19/25 -Product Lot Number [id number] -Percent Used 100 -Lot number of Saline Used [id number] -Bleeding Controlled with Pressure -Type of Offloading Surgical Shoe -Debridement - Subq, 1st 20sq cm No -Apply Skin Sub - 1st 25 sq cm - Legs 1 -Epifix 18mm Disc 3 Query Text:18mm = 3 [See Physician Procedure note for Specifics] Pain Scale: 0-10 Numeric [Pain] -Is Patient Pain Free? Yes WC - Nurse 3 - General Ulcer D/C NN Start: 06/23/20 08:18 Freq: Status: Active Protocol: Activity Type Activity Date Activity User E-Sign Co-Sign Detail Recorded Client Recorded Date Recorded By Document 06/23/20 09:15 MW [id number] 06/23/20 09:16 MW 06/23/20 09:15 Wound Care Nurse 3 [Wound Dressing] 10. RLE inferior -Ulcer Cleansing Not Cleansed -Foul Odor after Cleansing No -Negative Pressure Wound Therapy N/A -Primary Dressing Covered/Secured Dry Gauze & with Roll Gauze, Secured with Tape [Post Procedure Tolerated] -Treatment Response Procedure Tolerated Well Teaching: Wound Center [Wound Center Education] (Items with an * have Printed Materials Available- Please identify what is given to patient under the Teaching materials given to patient and caregiver Section. Dressing Your Wound -Person Taught Patient -Teaching Method Discussion, Demonstration -Response to teaching Verbalize understanding WC - Visit Discharge [Visit Discharge Information] -Discharge Condition Stable -Ambulatory Status Ambulatory -Transportation Private Auto -Accompanied by SELF -Medication Reconcilliation completed No & provided to patient/care provider -Clinical Summary of Care Provided Yes Psych/Mental Status: Normal Affect, Appropriate Debridement Note Post-Debridement Measurements/Treatment WC - Nurse 2 - General Ulcer CM Notes Start: 06/23/20 08:18 Freq: Status: Active Protocol: Activity Type Activity Date Activity User E-Sign Co-Sign Detail Recorded Client Recorded Date Recorded By Document 06/23/20 08:52 MW [id number] 06/23/20 09:05 MW 06/23/20 08:52 Wound Center Nurse 2 10. RLE inferior -Time 08:56 -Correct Patient Yes -Correct Side, Site, Position Yes -Correct Procedure Yes -Procedure Performed Yes -Type of Procedure Debridement -Clinical Debridement Subcutaneous -Tissue Removed Subcutaneous -Post Debridement (cm) - Length 0.4 -Post Debridement (cm) - Width 0.3 -Post Debridement (cm) - Depth 0.1 -Total Square (Post) (cm) 0.12 -Area of Debridement (cm) - Length 0.4 -Area of Debridement (cm) - Width 0.3 -Total Square (Area) (cm) 0.12 -Tunneling No -Undermining/Tunneling No -Circular Undermining No -Wound/Ulcer Outcome Not Healed -Ulcer Cleansing Rinsed/ Irrigated with Saline -Foul Odor after Cleansing No -Bioengineered Tissue Yes -Type of Bioengineered Tissue Epifix 18mm Disc -Expiration Date 03/19/25 -Product Lot Number [id number] -Percent Used 100 -Lot number of Saline Used [id number] -Bleeding Controlled with Pressure -Type of Offloading Surgical Shoe -Debridement - Subq, 1st 20sq cm No -Apply Skin Sub - 1st 25 sq cm - Legs 1 -Epifix 18mm Disc 3 Query Text:18mm = 3 Pain Scale: 0-10 Numeric Is Patient Pain Free? Yes WC - Nurse 3 - General Ulcer D/C NN Start: 06/23/20 08:18 Freq: Status: Active Protocol: Activity Type Activity Date Activity User E-Sign Co-Sign Detail Recorded Client Recorded Date Recorded By Document 06/23/20 09:15 MW [id number] 06/23/20 09:16 MW 06/23/20 09:15 Wound Care Nurse 3 10. RLE inferior -Ulcer Cleansing Not Cleansed -Foul Odor after Cleansing No -Negative Pressure Wound Therapy N/A -Primary Dressing Covered/Secured with Dry Gauze & Roll Gauze, Secured with Tape Treatment Response Procedure Tolerated Well Teaching: Wound Center Dressing Your Wound -Person Taught Patient -Teaching Method Discussion, Demonstration -Response to teaching Verbalize understanding WC - Visit Discharge Discharge Condition Stable Ambulatory Status Ambulatory Transportation Private Auto Accompanied by SELF Medication Reconcilliation completed & No provided to patient/care provider Clinical Summary of Care Provided Yes Wound debrided: RLE inferior Laterality: Right Type of Debridement: Excisional debridement Anesthesia Used: 4% Lidocaine Solution Depth: Down to and including healthy tissue, in the subcutaneous layer Percentage of wound debrided: 100 Instrument Used: 3mm curette Tissue Removed: Yellow slough, devitalized tissue Severity: Fat Layer Exposed Amount of bleeding with debridement: Mild Bleeding Controlled with: Compression and gauze Patient tolerated procedure well Assessment/Plan Assessment: right lower extremity wounds due to hematoma from trauma - hitting step/box complicated by chronic venous insufficiency Plan: [place]'s wound was evaluated and debrided today. Superior wound remains healed. Inferior wound has improved with Epfix application #1. Epifix application #3 applied today - 18 mm disc was applied to his wound today per stage technician [email or web address] using 100% of product and secured with adaptic touch without steristrips due to irritation. He is aware not to disrupt the dressing and avoid getting the dressing wet. Given the chronicity of his wound it is complicated by venous insufficiency and etiology will be changed to venous ulcer. He would benefit from treatment with advanced wound healing product such as Epifix in order to heal his ulcer. He has completed over 8 weeks of conservative wound treatment. Will apply for use of this product through his insurance, approval has been received. He is homebound, does not drive and relies on hospital transportation or others to take him to appointments. Home Health will be consulted to assist him in doing dressing changes. Will use tubigrip for compression. Patient has been advised to elevate his lower extremities for the long-term, to minimize swelling and edema. Encouraged increase protein intake to aid in wound healing. Labs were reviewed from 03/23/2020 and show mild anemia, normal protein and mild renal insufficiency (GFR 51) and normal glucose. It may be beneficial to repeat A1C or request labs from his PCP. In 2018, he had an elevated A1C of 7.7%. Xray of his right LE 04/17/2020 was normal without any evidence for underlying fracture or bone disease. F/U in 1 week or sooner if needed.
[2020-06-30 09:26] VITALS: BP 122/59; PULSE 80; RESP 18; TEMP 36.1; BMI 30.4
--- NOTE | 2020-06-30 10:02 | PCM.WC.PN ---
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 Code(s): L97.912 - Non-pressure chronic ulcer of unspecified part of right lower leg with fat layer exposed (3) Venous ulcer with fat layer exposed Status: Chronic Code(s): I83.009 - Varicose veins of unspecified lower extremity with ulcer of unspecified site; L97.902 - Non-pressure chronic ulcer of unspecified part of unspecified lower leg with fat layer exposed Type of Wound Date of Service: 06/30/20 Chief Complaint: ulcer of right lower leg History of Wound: This is an 79-year-old male who was in his normal state of health until approximately March 16, 2020, at which time he sustained an injury to his right cota distally that occurred from bumping his leg on a step. He went to the ER on 03/23/2020 and was given IV Unasyn x 1 dose and the ER physician wanted him to stay for surgical debridement but he refused and saw general surgery as an outpatient on 03/24/2020 where an I and D and hematoma evacuation was performed as an outpatient by Dr. Macias in her office. Clot was removed and a culture taken. He was given Keflex and Bactrim DS and the wound was packed with gauze packing. It was followed for 2 weeks and was improving. On 04/17/2020, his home health aid saw his leg and suggested that he see a physician as his cota area was erythematous, warm and dswollen. [facility] and an xray and wound culture were completed and he was started on Clindamycin and referred to the wound center for additional treatment. He has been using gauze to dress his wound. He also bumped his upper cota of his right leg on a box a few days ago and it is bruised and draining as well. He does have compression stockings to use for edema but has not been wearing them and he has had increased edema to his right leg. He denies any systemic signs of infection such as fever, chills, nausea, vomiting, fatigue. He has had venous studies showing no venous disease in October 2017 and arterial studies showing no arterial disease in 2017. Progress of Wound: [place] is here for follow up of right cota and right lateral lower leg wound s/p hematoma evacuation/I and D with delayed healing. He has venous insufficiency and chronic lower extremity edema b/l which have caused him to have recurrent wounds of his legs. He tolerated application of Epifix and is healed. He denies any fever, chills, odor, pain, increased drainage. - Physical Exam Vital Signs Temp Pulse Resp BP 97 F L 80 18 122/59 H 06/30/20 09:26 06/30/20 09:26 06/30/20 09:26 06/30/20 09:26 General: Alert, Oriented x3, Cooperative, No apparent distress HEENT: Atraumatic, Normocephalic Oral: Moist Mucosa Neck: Supple Abdomen: Obese Extremities: Edema Skin: Ulcer/ Wound Wound Measurements and Assessment WC - Nurse 1 - General Ulcer Measurement Start: 06/23/20 08:18 Freq: Status: Active Protocol: Activity Type Activity Date Activity User E-Sign Co-Sign Detail Recorded Client Recorded Date Recorded By Document 06/30/20 09:26 [id number] 06/30/20 09:28 RB 06/30/20 09:26 Wound Center Nurse 1 [Ulcer Assessment] 10. RLE inferior -Combined with other wound No -Current Size (cm) - Length 0.5 -Current Size (cm) - Width 0.5 -Current Size (cm) - Depth 0.1 -Total Square Cm 0.25 -Tunneling No -Undermining/Tunneling No -Circular Undermining No -Exudate Amt Small -Exudate Type Serosanguineous -Wound Margin Flat & Intact -Granulation Amt Large (67-100%) -Granulation Quality [place],Red -Slough/Fibrin Yes -Necrosis Amt Small (1-33%) -Necrotic Tissue Type Adherent Slough -Structure Exposed N/A -Texture (Karin-wound Skin Appearance) Assessed -Moisture (Karin-wound Skin Appearance Dry/Scaly ) -Color (Karin-wound Skin Appearance) Assessed -Temperature (Karin-wound Skin No Abnormality Appearance) (Pt Warm) -Tenderness on Palpation (Karin-wound No Skin Appearance) -Ulcer Cleansing Wound Cleanser -Foul Odor after Cleansing No -Anesthetic Used 4% Lidocaine Solution [Edema Assessment] -Lower Limb Edema Present Yes -Right Calf (cm) 39 -Right Ankle (cm) 23.5 WC - Nurse 2 - General Ulcer CM Notes Start: 06/23/20 08:18 Freq: Status: Active Protocol: Activity Type Activity Date Activity User E-Sign Co-Sign Detail Recorded Client Recorded Date Recorded By Document 06/30/20 09:33 MW [id number] 06/30/20 09:49 MW 06/30/20 09:33 Wound Center Nurse 2 [Procedure/Treatment] 10. RLE inferior -Time 09:36 -Correct Patient Yes -Correct Side, Site, Position Yes -Correct Procedure Yes -Procedure Performed Yes -Type of Procedure Debridement -Clinical Debridement Epidermis / Dermis -Tissue Removed Epidermis -Post Debridement (cm) - Length 0.5 -Post Debridement (cm) - Width 0.5 -Post Debridement (cm) - Depth 0.1 -Total Square (Post) (cm) 0.25 -Area of Debridement (cm) - Length 0.5 -Area of Debridement (cm) - Width 0.5 -Total Square (Area) (cm) 0.25 -Tunneling No -Undermining/Tunneling No -Circular Undermining No -Wound/Ulcer Outcome Healed- Epithelialized -Ulcer Cleansing Rinsed/ Irrigated with Saline -Foul Odor after Cleansing No -Bioengineered Tissue No -Bleeding Controlled with Pressure -Offloading No -Treatment Response Procedure Tolerated Well -Debridement - Open, 1st 20sq cm Yes [See Physician Procedure note for Specifics] Pain Scale: 0-10 Numeric [Pain] -Is Patient Pain Free? Yes - Nurse 3 - General Ulcer D/C NN Start: 06/23/20 08:18 Freq: Status: Active Protocol: Activity Type Activity Date Activity User E-Sign Co-Sign Detail Recorded Client Recorded Date Recorded By Document 06/30/20 09:50 MW [id number] 06/30/20 09:51 MW 06/30/20 09:50 Wound Care Nurse 3 [Wound Dressing] 10. RLE inferior -Primary Dressing Covered/Secured Dry Gauze & with Roll Gauze, Secured with Tape [Post Procedure Tolerated] -Treatment Response Procedure Tolerated Well Pain Scale: 0-10 Numeric [Pain] -Is Patient Pain Free? Yes Teaching: Wound Center [Wound Center Education] (Items with an * have Printed Materials Available- Please identify what is given to patient under the Teaching materials given to patient and caregiver Section. Compression Wraps & Stockings -Person Taught Patient -Teaching Method Discussion -Response to teaching Verbalize understanding Dressing Your Wound -Person Taught Patient -Teaching Method Discussion, Demonstration -Response to teaching Verbalize understanding WC - Visit Discharge [Visit Discharge Information] -Discharge Condition Stable -Ambulatory Status Ambulatory -Transportation Private Auto -Accompanied by self -Medication Reconcilliation completed No & provided to patient/care provider -Clinical Summary of Care Provided Yes Psych/Mental Status: Normal Affect, Appropriate Debridement Note Post-Debridement Measurements/Treatment WC - Nurse 2 - General Ulcer CM Notes Start: 06/23/20 08:18 Freq: Status: Active Protocol: Activity Type Activity Date Activity User E-Sign Co-Sign Detail Recorded Client Recorded Date Recorded By Document 06/23/20 08:52 MW [id number] 06/23/20 09:05 MW Document 06/30/20 09:33 MW [id number] 06/30/20 09:49 MW 06/23/20 06/30/20 08:52 09:33 Wound Center Nurse 2 10. RLE inferior -Time 08:56 09:36 -Correct Patient Yes Yes -Correct Side, Site, Position Yes Yes -Correct Procedure Yes Yes -Procedure Performed Yes Yes -Type of Procedure Debridement Debridement -Clinical Debridement Subcutaneous Epidermis / Dermis -Tissue Removed Subcutaneous Epidermis -Post Debridement (cm) - Length 0.4 0.5 -Post Debridement (cm) - Width 0.3 0.5 -Post Debridement (cm) - Depth 0.1 0.1 -Total Square (Post) (cm) 0.12 0.25 -Area of Debridement (cm) - Length 0.4 0.5 -Area of Debridement (cm) - Width 0.3 0.5 -Total Square (Area) (cm) 0.12 0.25 -Tunneling No No -Undermining/Tunneling No No -Circular Undermining No No -Wound/Ulcer Outcome Not Healed Healed- Epithelialized -Ulcer Cleansing Rinsed/ Rinsed/ Irrigated with Irrigated with Saline Saline -Foul Odor after Cleansing No No -Bioengineered Tissue Yes No -Type of Bioengineered Tissue Epifix 18mm Disc -Expiration Date 03/19/25 -Product Lot Number [id number] -Percent Used 100 -Lot number of Saline Used [id number] -Bleeding Controlled with Pressure Pressure -Offloading No -Type of Offloading Surgical Shoe -Treatment Response Procedure Tolerated Well -Debridement - Open, 1st 20sq cm Yes -Debridement - Subq, 1st 20sq cm No -Apply Skin Sub - 1st 25 sq cm - Legs 1 -Epifix 18mm Disc 3 Pain Scale: 0-10 Numeric Is Patient Pain Free? Yes Yes - Nurse 3 - General Ulcer D/C NN Start: 06/23/20 08:18 Freq: Status: Active Protocol: Activity Type Activity Date Activity User E-Sign Co-Sign Detail Recorded Client Recorded Date Recorded By Document 06/23/20 09:15 MW [id number] 06/23/20 09:16 MW Document 06/30/20 09:50 MW [id number] 06/30/20 09:51 MW 06/23/20 06/30/20 09:15 09:50 Wound Care Nurse 3 10. RLE inferior -Ulcer Cleansing Not Cleansed -Foul Odor after Cleansing No -Negative Pressure Wound Therapy N/A -Primary Dressing Covered/Secured with Dry Gauze & Dry Gauze & Roll Gauze, Roll Gauze, Secured with Secured with Tape Tape Treatment Response Procedure Procedure Tolerated Well Tolerated Well Pain Scale: 0-10 Numeric Is Patient Pain Free? Yes Teaching: Wound Center Compression Wraps & Stockings -Person Taught Patient -Teaching Method Discussion -Response to teaching Verbalize understanding Dressing Your Wound -Person Taught Patient Patient -Teaching Method Discussion, Discussion, Demonstration Demonstration -Response to teaching Verbalize Verbalize understanding understanding WC - Visit Discharge Discharge Condition Stable Stable Ambulatory Status Ambulatory Ambulatory Transportation Private Auto Private Auto Accompanied by SELF self Medication Reconcilliation completed & No No provided to patient/care provider Clinical Summary of Care Provided Yes Yes Wound debrided: right LE inferior Laterality: Right Type of Debridement: Selective debridement Anesthesia Used: 4% Lidocaine Solution Depth: Down to and including healthy tissue Percentage of wound debrided: 100 Instrument Used: 3mm curette Tissue Removed: devitalized tissue Severity: Limited To Skin Breakdown Amount of bleeding with debridement: None Bleeding Controlled with: Compression and gauze Patient tolerated procedure well Assessment/Plan Active Problems (Last Reviewed 06/21/20 @ 12:14 by Shawnee Callaway) Traumatic open wound of right lower leg with delayed healing (Chronic) Chronic 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 (Chronic) Venous ulcer with fat layer exposed (Chronic) Assessment: right lower extremity wounds due to hematoma from trauma - hitting step/box complicated by chronic venous insufficiency Plan: [place]'s wound was evaluated and debrided today and is healed. Superior wound remains healed. Will have him use vaseline and gauze to wound every other day to daily and restart compression stocking use. Given the chronicity of his wound it is complicated by venous insufficiency and etiology will be changed to venous ulcer. He has benefitted from treatment with advanced wound healing product of Epifix. He has completed over 9 weeks of conservative wound treatment. He is homebound, does not drive and relies on hospital transportation or others to take him to appointments. Home Health will be consulted to assist him in doing dressing changes. Will use tubigrip for compression. Patient has been advised to elevate his lower extremities for the long-term, to minimize swelling and edema. Encouraged increase protein intake to aid in wound healing. Labs were reviewed from 03/23/2020 and show mild anemia, normal protein and mild renal insufficiency (GFR 51) and normal glucose. It may be beneficial to repeat A1C or request labs from his PCP. In 2018, he had an elevated A1C of 7.7%. Xray of his right LE 04/17/2020 was normal without any evidence for underlying fracture or bone disease. F/U in 1 week or sooner if needed.
[2020-07-07 08:22] VITALS: BP 147/66; PULSE 78; RESP 18; TEMP 36.5; BMI 30.4
--- NOTE | 2020-07-07 09:37 | PN.PCM_ITS ---
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 Code(s): L97.912 - Non-pressure chronic ulcer of unspecified part of right lower leg with fat layer exposed (3) Venous ulcer with fat layer exposed Status: Chronic Code(s): I83.009 - Varicose veins of unspecified lower extremity with ulcer of unspecified site; L97.902 - Non-pressure chronic ulcer of unspecified part of unspecified lower leg with fat layer exposed Type of Wound Date of Service: 07/07/20 Chief Complaint: ulcer of right lower leg History of Wound: This is an 79-year-old male who was in his normal state of health until approximately March 16, 2020, at which time he sustained an injury to his right cota distally that occurred from bumping his leg on a step. He went to the ER on 03/23/2020 and was given IV Unasyn x 1 dose and the ER physician wanted him to stay for surgical debridement but he refused and saw general surgery as an outpatient on 03/24/2020 where an I and D and hematoma evacuation was performed as an outpatient by Dr. Macias in her office. Clot was removed and a culture taken. He was given Keflex and Bactrim DS and the wound was packed with gauze packing. It was followed for 2 weeks and was improving. On 04/17/2020, his home health aid saw his leg and suggested that he see a physician as his cota area was erythematous, warm and dswollen. [facility] and an xray and wound culture were completed and he was started on Clindamycin and referred to the wound center for additional treatment. He has been using gauze to dress his wound. He also bumped his upper cota of his right leg on a box a few days ago and it is bruised and draining as well. He does have compression stockings to use for edema but has not been wearing them and he has had increased edema to his right leg. He denies any systemic signs of infection such as fever, chills, nausea, vomiting, fatigue. He has had venous studies showing no venous disease in October 2017 and arterial studies showing no arterial disease in 2017. Progress of Wound: [place] is here for follow up of right cota and right lateral lower leg wound s/p hematoma evacuation/I and D with delayed healing. He has venous insufficiency and chronic lower extremity edema b/l which have caused him to have recurrent wounds of his legs. He tolerated application of Epifix x 3 and was healed last week but returns this week as the ulcer has re-opened. He denies any fever, chills, odor, pain, increased drainage. - Physical Exam Vital Signs Temp Pulse Resp BP 97.7 F L 78 18 147/66 H 07/07/20 08:22 07/07/20 08:22 07/07/20 08:22 07/07/20 08:22 General: Alert, Oriented x3, Cooperative, No apparent distress HEENT: Atraumatic, Normocephalic Oral: Moist Mucosa Neck: Supple Lungs: Clear to auscultation Cardiovascular: Regular rate Abdomen: Soft, Non Tender, Obese Extremities: Edema Skin: Ulcer/ Wound Wound Measurements and Assessment WC - Nurse 1 - General Ulcer Measurement Start: 06/23/20 08:18 Freq: Status: Active Protocol: Activity Type Activity Date Activity User E-Sign Co-Sign Detail Recorded Client Recorded Date Recorded By Document 07/07/20 08:22 RB [id number] 07/07/20 08:24 RB 07/07/20 08:22 Wound Center Nurse 1 [Edema Assessment] -Lower Limb Edema Present Yes -Right Calf (cm) 38 -Right Ankle (cm) 23.9 WC - Nurse 2 - General Ulcer CM Notes Start: 06/23/20 08:18 Freq: Status: Active Protocol: Activity Type Activity Date Activity User E-Sign Co-Sign Detail Recorded Client Recorded Date Recorded By Document 07/07/20 08:44 MW [id number] 07/07/20 08:54 MW 07/07/20 08:44 Wound Center Nurse 2 [Procedure/Treatment] 10. RLE inferior -Time 08:47 -Correct Patient Yes -Correct Side, Site, Position Yes -Correct Procedure Yes -Procedure Performed Yes -Type of Procedure Debridement -Clinical Debridement Subcutaneous -Tissue Removed Subcutaneous -Post Debridement (cm) - Length 0.9 -Post Debridement (cm) - Width 0.3 -Post Debridement (cm) - Depth 0.1 -Total Square (Post) (cm) 0.27 -Area of Debridement (cm) - Length 0.9 -Area of Debridement (cm) - Width 0.3 -Total Square (Area) (cm) 0.27 -Tunneling No -Undermining/Tunneling No -Circular Undermining No -Wound/Ulcer Outcome Not Healed -Ulcer Cleansing Rinsed/ Irrigated with Saline -Foul Odor after Cleansing No -Bioengineered Tissue Yes -Type of Bioengineered Tissue Epifix 18mm Disc -Expiration Date 03/19/25 -Product Lot Number [id number] -Percent Used 100 -Lot number of Saline Used [id number] -Bleeding Controlled with Pressure -Offloading No -Treatment Response Procedure Tolerated Well -Debridement - Subq, 1st 20sq cm No -Apply Skin Sub - 1st 25 sq cm - Legs 1 -Epifix 18mm Disc 3 Query Text:18mm = 3 [See Physician Procedure note for Specifics] Pain Scale: 0-10 Numeric [Pain] -Is Patient Pain Free? Yes WC - Nurse 3 - General Ulcer D/C NN Start: 06/23/20 08:18 Freq: Status: Active Protocol: Activity Type Activity Date Activity User E-Sign Co-Sign Detail Recorded Client Recorded Date Recorded By Document 07/07/20 08:57 MW [id number] 07/07/20 08:58 MW 07/07/20 08:57 Wound Care Nurse 3 [Wound Dressing] 10. RLE inferior -Ulcer Cleansing Not Cleansed -Foul Odor after Cleansing No -Negative Pressure Wound Therapy N/A -Primary Dressing Covered/Secured Dry Gauze & with Roll Gauze, Secured with Tape [Compression Applied] Right -Lotion applied to leg before No compression wrap -Tubular Bandage Single Layer -Size of Tubigrip Used Size F -Size F ($) 1 [Post Procedure Tolerated] -Treatment Response Procedure Tolerated Well Pain Scale: 0-10 Numeric [Pain] -Is Patient Pain Free? Yes Teaching: Wound Center [Wound Center Education] (Items with an * have Printed Materials Available- Please identify what is given to patient under the Teaching materials given to patient and caregiver Section. Dressing Your Wound -Person Taught Patient -Teaching Method Discussion -Response to teaching Verbalize understanding WC - Visit Discharge [Visit Discharge Information] -Discharge Condition Stable -Ambulatory Status Ambulatory,Cane -Transportation Private Auto -Accompanied by SELF -Medication Reconcilliation completed No & provided to patient/care provider -Clinical Summary of Care Provided Yes Psych/Mental Status: Normal Affect, Appropriate Debridement Note Post-Debridement Measurements/Treatment WC - Nurse 2 - General Ulcer CM Notes Start: 06/23/20 08:18 Freq: Status: Active Protocol: Activity Type Activity Date Activity User E-Sign Co-Sign Detail Recorded Client Recorded Date Recorded By Document 06/23/20 08:52 MW [id number] 06/23/20 09:05 MW Document 06/30/20 09:33 MW [id number] 06/30/20 09:49 MW Document 07/07/20 08:44 MW [id number] 07/07/20 08:54 MW 06/23/20 06/30/20 07/07/20 08:52 09:33 08:44 Wound Center Nurse 2 10. RLE inferior -Time 08:56 09:36 08:47 -Correct Patient Yes Yes Yes -Correct Side, Site, Position Yes Yes Yes -Correct Procedure Yes Yes Yes -Procedure Performed Yes Yes Yes -Type of Procedure Debridement Debridement Debridement -Clinical Debridement Subcutaneous Epidermis / Subcutaneous Dermis -Tissue Removed Subcutaneous Epidermis Subcutaneous -Post Debridement (cm) - Length 0.4 0.5 0.9 -Post Debridement (cm) - Width 0.3 0.5 0.3 -Post Debridement (cm) - Depth 0.1 0.1 0.1 -Total Square (Post) (cm) 0.12 0.25 0.27 -Area of Debridement (cm) - Length 0.4 0.5 0.9 -Area of Debridement (cm) - Width 0.3 0.5 0.3 -Total Square (Area) (cm) 0.12 0.25 0.27 -Tunneling No No No -Undermining/Tunneling No No No -Circular Undermining No No No -Wound/Ulcer Outcome Not Healed Healed- Not Healed Epithelialized -Ulcer Cleansing Rinsed/ Rinsed/ Rinsed/ Irrigated with Irrigated with Irrigated with Saline Saline Saline -Foul Odor after Cleansing No No No -Bioengineered Tissue Yes No Yes -Type of Bioengineered Tissue Epifix 18mm Epifix 18mm Disc Disc -Expiration Date 03/19/25 03/19/25 -Product Lot Number [id number] -Percent Used 100 100 -Lot number of Saline Used [id number] -Bleeding Controlled with Pressure Pressure Pressure -Offloading No No -Type of Offloading Surgical Shoe -Treatment Response Procedure Procedure Tolerated Well Tolerated Well -Debridement - Open, 1st 20sq cm Yes -Debridement - Subq, 1st 20sq cm No No -Apply Skin Sub - 1st 25 sq cm - Legs 1 1 -Epifix 18mm Disc 3 3 Query Text:18mm = 3 Pain Scale: 0-10 Numeric Is Patient Pain Free? Yes Yes Yes WC - Nurse 3 - General Ulcer D/C NN Start: 06/23/20 08:18 Freq: Status: Active Protocol: Activity Type Activity Date Activity User E-Sign Co-Sign Detail Recorded Client Recorded Date Recorded By Document 06/23/20 09:15 MW [id number] 06/23/20 09:16 MW Document 06/30/20 09:50 MW [id number] 06/30/20 09:51 MW Document 07/07/20 08:57 MW [id number] 07/07/20 08:58 MW 06/23/20 06/30/20 07/07/20 09:15 09:50 08:57 Wound Care Nurse 3 10. RLE inferior -Ulcer Cleansing Not Cleansed Not Cleansed -Foul Odor after Cleansing No No -Negative Pressure Wound Therapy N/A N/A -Primary Dressing Covered/Secured with Dry Gauze & Dry Gauze & Dry Gauze & Roll Gauze, Roll Gauze, Roll Gauze, Secured with Secured with Secured with Tape Tape Tape Right -Lotion applied to leg before No compression wrap -Tubular Bandage Single Layer -Size of Tubigrip Used Size F -Size F ($) 1 Treatment Response Procedure Procedure Procedure Tolerated Well Tolerated Well Tolerated Well Pain Scale: 0-10 Numeric Is Patient Pain Free? Yes Yes Teaching: Wound Center Compression Wraps & Stockings -Person Taught Patient -Teaching Method Discussion -Response to teaching Verbalize understanding Dressing Your Wound -Person Taught Patient Patient Patient -Teaching Method Discussion, Discussion, Discussion Demonstration Demonstration -Response to teaching Verbalize Verbalize Verbalize understanding understanding understanding WC - Visit Discharge Discharge Condition Stable Stable Stable Ambulatory Status Ambulatory Ambulatory Ambulatory,Cane Transportation Private Auto Private Auto Private Auto Accompanied by SELF self SELF Medication Reconcilliation completed & No No No provided to patient/care provider Clinical Summary of Care Provided Yes Yes Yes Wound debrided: RLE inferior Laterality: Right Type of Debridement: Selective debridement Anesthesia Used: 4% Lidocaine Solution Depth: Down to and including healthy tissue, in the subcutaneous layer Percentage of wound debrided: 100 Instrument Used: - - gauze Tissue Removed: yellow slough, devitalized tissue Severity: Fat Layer Exposed Amount of bleeding with debridement: Mild Bleeding Controlled with: Compression and gauze Patient tolerated procedure well Assessment/Plan Active Problems (Last Reviewed 06/21/20 @ 12:14 by Shawnee Callaway) Traumatic open wound of right lower leg with delayed healing (Chronic) Chronic 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 (Chronic) Venous ulcer with fat layer exposed (Chronic) Assessment: right lower extremity wounds due to hematoma from trauma - hitting step/box complicated by chronic venous insufficiency Plan: [place]'s wound was evaluated and debrided today and is not healed. Superior wound remains healed. Epifix #4 applied today per [employer] tour [employer] guidelines using 100% of the product then covered with adaptic touch. He tolerated procedure well. I anticipate him being healed next week. Given the chronicity of his wound it is complicated by venous insufficiency and etiology will be changed to venous ulcer. He has benefitted from treatment with advanced wound healing product of Epifix. He has completed over 9 weeks of conservative wound treatment. He is homebound, does not drive and relies on hospital transportation or others to take him to appointments. Home Health will be consulted to assist him in doing dressing changes. Will use tubigrip for compression. Patient has been advised to elevate his lower extremities for the long-term, to minimize swelling and edema. Encouraged increase protein intake to aid in wound healing. Labs were reviewed from 03/23/2020 and show mild anemia, normal protein and mild renal insufficiency (GFR 51) and normal glucose. It may be beneficial to repeat A1C or request labs from his PCP. In 2018, he had an elevated A1C of 7.7%. Xray of his right LE 04/17/2020 was normal without any evidence for underlying fracture or bone disease. F/U in 1 week or sooner if needed.
[2020-07-14 08:13] VITALS: BP 126/75; PULSE 80; RESP 18; TEMP 36.1; BMI 30.4
--- NOTE | 2020-07-14 14:57 | PN.PCM_ITS ---
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 Code(s): L97.912 - Non-pressure chronic ulcer of unspecified part of right lower leg with fat layer exposed (3) Venous ulcer with fat layer exposed Status: Chronic Code(s): I83.009 - Varicose veins of unspecified lower extremity with ulcer of unspecified site; L97.902 - Non-pressure chronic ulcer of unspecified part of unspecified lower leg with fat layer exposed Type of Wound Date of Service: 07/14/20 Chief Complaint: ulcer of right lower leg History of Wound: This is an 79-year-old male who was in his normal state of health until approximately March 16, 2020, at which time he sustained an injury to his right cota distally that occurred from bumping his leg on a step. He went to the ER on 03/23/2020 and was given IV Unasyn x 1 dose and the ER physician wanted him to stay for surgical debridement but he refused and saw general surgery as an outpatient on 03/24/2020 where an I and D and hematoma evacuation was performed as an outpatient by Dr. Macias in her office. Clot was removed and a culture taken. He was given Keflex and Bactrim DS and the wound was packed with gauze packing. It was followed for 2 weeks and was improving. On 04/17/2020, his home health aid saw his leg and suggested that he see a physician as his cota area was erythematous, warm and dswollen. [facility] and an xray and wound culture were completed and he was started on Clindamycin and referred to the wound center for additional treatment. He has been using gauze to dress his wound. He also bumped his upper cota of his right leg on a box a few days ago and it is bruised and draining as well. He does have compression stockings to use for edema but has not been wearing them and he has had increased edema to his right leg. He denies any systemic signs of infection such as fever, chills, nausea, vomiting, fatigue. He has had venous studies showing no venous disease in October 2017 and arterial studies showing no arterial disease in 2017. Progress of Wound: [place] is here for follow up of right cota and right lateral lower leg wound s/p hematoma evacuation/I and D with delayed healing. He has venous insufficiency and chronic lower extremity edema b/l which have caused him to have recurrent wounds of his legs. He tolerated application of Epifix x 4 and is healed today. He denies any fever, chills, odor, pain, increased drainage. - Physical Exam Vital Signs Temp Pulse Resp BP 97 F L 80 18 126/75 H 07/14/20 08:13 07/14/20 08:13 07/14/20 08:13 07/14/20 08:13 General: Alert, Oriented x3, Cooperative, No apparent distress HEENT: Atraumatic, Normocephalic Oral: Moist Mucosa Abdomen: Obese Extremities: Edema Skin: Ulcer/ Wound Wound Measurements and Assessment WC - Nurse 1 - General Ulcer Measurement Start: 06/23/20 08:18 Freq: Status: Discharge Protocol: Activity Type Activity Date Activity User E-Sign Co-Sign Detail Recorded Client Recorded Date Recorded By Document 07/14/20 08:13 RB [id number] 07/14/20 08:14 RB Edit Status 07/14/20 08:45 BKG DAEMON Active=>Discharge [id number] 07/14/20 08:45 BKG DAEMON 07/14/20 08:13 Wound Center Nurse 1 [Ulcer Assessment] 10. RLE inferior -Combined with other wound No -Current Size (cm) - Length 0.1 -Current Size (cm) - Width 0.1 -Current Size (cm) - Depth 0.1 -Total Square Cm 0.01 -Photo Taken No -Tunneling No -Undermining/Tunneling No -Circular Undermining No -Exudate Amt None Present -Wound Margin Flat & Intact -Granulation Amt Small (1-33%) -Granulation Quality [place] -Slough/Fibrin Yes -Necrosis Amt Large (67-100%) -Necrotic Tissue Type Adherent Slough -Structure Exposed N/A -Texture (Karin-wound Skin Appearance) Assessed, Scarring -Moisture (Karin-wound Skin Appearance Assessed ) -Color (Karin-wound Skin Appearance) Assessed -Temperature (Karin-wound Skin No Abnormality Appearance) (Pt Warm) -Tenderness on Palpation (Karin-wound No Skin Appearance) -Ulcer Cleansing Wound Cleanser -Foul Odor after Cleansing No -Anesthetic Used 5% Lidocaine Gel [Edema Assessment] -Lower Limb Edema Present Yes -Right Calf (cm) 37.2 -Right Ankle (cm) 22.5 WC - Nurse 2 - General Ulcer CM Notes Start: 06/23/20 08:18 Freq: Status: Discharge Protocol: Activity Type Activity Date Activity User E-Sign Co-Sign Detail Recorded Client Recorded Date Recorded By Document 07/14/20 08:28 MW [id number] 07/14/20 08:29 MW Edit Status 07/14/20 08:45 BKG DAEMON Active=>Discharge [place] [id number] 07/14/20 08:45 BKG DAEMON 07/14/20 08:28 Wound Center Nurse 2 [Procedure/Treatment] 10. RLE inferior -Time 08:28 -Correct Patient Yes -Correct Side, Site, Position Yes -Correct Procedure Yes -Procedure Performed No -Post Debridement (cm) - Length 0 -Post Debridement (cm) - Width 0 -Post Debridement (cm) - Depth 0 -Total Square (Post) (cm) 0 -Wound/Ulcer Outcome Healed- Epithelialized [See Physician Procedure note for Specifics] Pain Scale: 0-10 Numeric [Pain] -Is Patient Pain Free? Yes - Nurse 3 - General Ulcer D/C NN Start: 06/23/20 08:18 Freq: Status: Discharge Protocol: Activity Type Activity Date Activity User E-Sign Co-Sign Detail Recorded Client Recorded Date Recorded By Document 07/14/20 08:29 MW [id number] 07/14/20 08:30 MW Edit Status 07/14/20 08:45 BKG DAEMON Active=>Discharge [place] [id number] 07/14/20 08:45 BKG DAEMON 07/14/20 08:29 Wound Care Nurse 3 [Compression Applied] Right -Lotion applied to leg before No compression wrap -Stockings Yes [Post Procedure Tolerated] -Treatment Response Procedure Tolerated Well Teaching: Wound Center [Wound Center Education] (Items with an * have Printed Materials Available- Please identify what is given to patient under the Teaching materials given to patient and caregiver Section. Discharge Instructions -Person Taught Patient -Teaching Method Discussion -Response to teaching Verbalize understanding - Visit Discharge [Visit Discharge Information] -Discharge Condition Stable -Ambulatory Status Ambulatory,Cane -Transportation [facility] -Medication Reconcilliation completed No & provided to patient/care provider -Clinical Summary of Care Provided Yes -Notes: HEALED, DISCHARGED Psych/Mental Status: Normal Affect, Appropriate Debridement Note Post-Debridement Measurements/Treatment WC - Nurse 2 - General Ulcer CM Notes Start: 06/23/20 08:18 Freq: Status: Discharge Protocol: Activity Type Activity Date Activity User E-Sign Co-Sign Detail Recorded Client Recorded Date Recorded By Document 06/23/20 08:52 MW [id number] 06/23/20 09:05 MW Document 06/30/20 09:33 MW [id number] 06/30/20 09:49 MW Document 07/07/20 08:44 MW [id number] 07/07/20 08:54 MW Document 07/14/20 08:28 MW [id number] 07/14/20 08:29 MW 06/23/20 06/30/20 07/07/20 08:52 09:33 08:44 Wound Center Nurse 2 10. RLE inferior -Time 08:56 09:36 08:47 -Correct Patient Yes Yes Yes -Correct Side, Site, Position Yes Yes Yes -Correct Procedure Yes Yes Yes -Procedure Performed Yes Yes Yes -Type of Procedure Debridement Debridement Debridement -Clinical Debridement Subcutaneous Epidermis / Subcutaneous Dermis -Tissue Removed Subcutaneous Epidermis Subcutaneous -Post Debridement (cm) - Length 0.4 0.5 0.9 -Post Debridement (cm) - Width 0.3 0.5 0.3 -Post Debridement (cm) - Depth 0.1 0.1 0.1 -Total Square (Post) (cm) 0.12 0.25 0.27 -Area of Debridement (cm) - Length 0.4 0.5 0.9 -Area of Debridement (cm) - Width 0.3 0.5 0.3 -Total Square (Area) (cm) 0.12 0.25 0.27 -Tunneling No No No -Undermining/Tunneling No No No -Circular Undermining No No No -Wound/Ulcer Outcome Not Healed Healed- Not Healed Epithelialized -Ulcer Cleansing Rinsed/ Rinsed/ Rinsed/ Irrigated with Irrigated with Irrigated with Saline Saline Saline -Foul Odor after Cleansing No No No -Bioengineered Tissue Yes No Yes -Type of Bioengineered Tissue Epifix 18mm Epifix 18mm Disc Disc -Expiration Date 03/19/25 03/19/25 -Product Lot Number [id number] -Percent Used 100 100 -Lot number of Saline Used [id number] -Bleeding Controlled with Pressure Pressure Pressure -Offloading No No -Type of Offloading Surgical Shoe -Treatment Response Procedure Procedure Tolerated Well Tolerated Well -Debridement - Open, 1st 20sq cm Yes -Debridement - Subq, 1st 20sq cm No No -Apply Skin Sub - 1st 25 sq cm - Legs 1 1 -Epifix 18mm Disc 3 3 Pain Scale: 0-10 Numeric Is Patient Pain Free? Yes Yes Yes 07/14/20 08:28 Wound Center Nurse 2 10. RLE inferior -Time 08:28 -Correct Patient Yes -Correct Side, Site, Position Yes -Correct Procedure Yes -Procedure Performed No -Type of Procedure -Clinical Debridement -Tissue Removed -Post Debridement (cm) - Length 0 -Post Debridement (cm) - Width 0 -Post Debridement (cm) - Depth 0 -Total Square (Post) (cm) 0 -Area of Debridement (cm) - Length -Area of Debridement (cm) - Width -Total Square (Area) (cm) -Tunneling -Undermining/Tunneling -Circular Undermining -Wound/Ulcer Outcome Healed- Epithelialized -Ulcer Cleansing -Foul Odor after Cleansing -Bioengineered Tissue -Type of Bioengineered Tissue -Expiration Date -Product Lot Number -Percent Used -Lot number of Saline Used -Bleeding Controlled with -Offloading -Type of Offloading -Treatment Response -Debridement - Open, 1st 20sq cm -Debridement - Subq, 1st 20sq cm -Apply Skin Sub - 1st 25 sq cm - Legs -Epifix 18mm Disc Pain Scale: 0-10 Numeric Is Patient Pain Free? Yes - Nurse 3 - General Ulcer D/C NN Start: 06/23/20 08:18 Freq: Status: Discharge Protocol: Activity Type Activity Date Activity User E-Sign Co-Sign Detail Recorded Client Recorded Date Recorded By Document 06/23/20 09:15 MW [id number] 06/23/20 09:16 MW Document 06/30/20 09:50 MW [id number] 06/30/20 09:51 MW Document 07/07/20 08:57 MW [id number] 07/07/20 08:58 MW Document 07/07/20 12:10 MS [id number] 07/07/20 12:11 MS Document 07/14/20 08:29 MW [id number] 07/14/20 08:30 MW 06/23/20 06/30/20 07/07/20 09:15 09:50 08:57 Wound Care Nurse 3 10. RLE inferior -Ulcer Cleansing Not Cleansed Not Cleansed -Foul Odor after Cleansing No No -Negative Pressure Wound Therapy N/A N/A -Primary Dressing Applied -Primary Dressing Covered/Secured with Dry Gauze & Dry Gauze & Dry Gauze & Roll Gauze, Roll Gauze, Roll Gauze, Secured with Secured with Secured with Tape Tape Tape -Aquacel AG 4x4 Right -Lotion applied to leg before No compression wrap -Tubular Bandage Single Layer -Size of Tubigrip Used Size F -Size F ($) 1 -Stockings Treatment Response Procedure Procedure Procedure Tolerated Well Tolerated Well Tolerated Well Pain Scale: 0-10 Numeric Is Patient Pain Free? Yes Yes Teaching: Wound Center Compression Wraps & Stockings -Person Taught Patient -Teaching Method Discussion -Response to teaching Verbalize understanding Discharge Instructions -Person Taught -Teaching Method -Response to teaching Dressing Your Wound -Person Taught Patient Patient Patient -Teaching Method Discussion, Discussion, Discussion Demonstration Demonstration -Response to teaching Verbalize Verbalize Verbalize understanding understanding understanding WC - Visit Discharge Discharge Condition Stable Stable Stable Ambulatory Status Ambulatory Ambulatory Ambulatory,Cane Transportation Private Auto Private Auto Private Auto Accompanied by SELF self SELF Medication Reconcilliation completed & No No No provided to patient/care provider Clinical Summary of Care Provided Yes Yes Yes Notes: 07/07/20 07/14/20 12:10 08:29 Wound Care Nurse 3 10. RLE inferior -Ulcer Cleansing Rinsed/ Irrigated with Saline -Foul Odor after Cleansing No -Negative Pressure Wound Therapy -Primary Dressing Applied Aquacel AG 4x4 -Primary Dressing Covered/Secured with Dry Gauze, Secured with Tape -Aquacel AG 4x4 1 Right -Lotion applied to leg before No compression wrap -Tubular Bandage -Size of Tubigrip Used -Size F ($) -Stockings Yes Treatment Response Procedure Tolerated Well Pain Scale: 0-10 Numeric Is Patient Pain Free? Yes Teaching: Wound Center Compression Wraps & Stockings -Person Taught -Teaching Method -Response to teaching Discharge Instructions -Person Taught Patient -Teaching Method Discussion -Response to teaching Verbalize understanding Dressing Your Wound -Person Taught -Teaching Method -Response to teaching WC - Visit Discharge Discharge Condition Stable Stable Ambulatory Status Ambulatory Ambulatory,Cane Transportation [facility] Accompanied by Medication Reconcilliation completed & No No provided to patient/care provider Clinical Summary of Care Provided Yes Yes Notes: HEALED, DISCHARGED Wound debrided: right lower extremity inferior Laterality: Right No debridement was completed today Assessment/Plan Active Problems (Last Reviewed 06/21/20 @ 12:14 by Shawnee Callaway) Traumatic open wound of right lower leg with delayed healing (Chronic) Chronic 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 (Chronic) Venous ulcer with fat layer exposed (Chronic) Assessment: right lower extremity wounds due to hematoma from trauma - hitting step/box complicated by chronic venous insufficiency Plan: [place]'s wound was evaluated and is healed. Will use tubigrip for compression. Patient has been advised to elevate his lower extremities for the long-term, to minimize swelling and edema. Encouraged increase protein intake to aid in wound healing. Xray of his right LE 04/17/2020 was normal without any evidence for underlying fracture or bone disease. He is discharged from the wound center and encouraged to return in the future if he develops any other wounds or ulcers.
== END 2020-07-14 08:45 | disposition home or self-care (01) ==
LOC: WC 08:30
PROVIDERS: PCP Internal Medicine; Referring Provider Physician Assistant; Visit Provider Family Medicine
DX: I83.018 Varicose veins of right lower extremity with ulcer other part of lower leg (principal); L97.812 Non-pressure chronic ulcer of other part of right lower leg with fat layer exposed; I87.2 Venous insufficiency (chronic) (peripheral); R60.0 Localized edema; S80.11XS Contusion of right lower leg, sequela; W22.8XXS Striking against or struck by other objects, sequela; L97.811 Non-pressure chronic ulcer of other part of right lower leg limited to breakdown of skin
CPT/HCPCS: 15271; 97597; 99212; Q4186; G0463

== ENCOUNTER → 2020-07-28 09:58 | Outpatient (CLI) | payer MEDICARE, SELFPAY ==
[2020-07-14 08:13] VITALS: BMI 30.4
[2020-07-28 12:16] LABS: Absolute Lymphocyte Count 0.53 X10^3/uL (0.83-4.51); Absolute Neutrophil Count 5.4 X10^3/uL (2.0-7.7); Basophil# 0.02 X10^3/uL; Basophil% 0.3 % (0-1); Eosinophil# 0.07 X10^3/uL; Eosinophils% 1.1 % (0-5); Hematocrit 32.4 % (40-54); Hemoglobin 9.8 g/dL (13.0-16.5); Lymphocyte # 0.53 X10^3/ul (4.0); Lymphocyte % 8.1 % (19-41); Mean Corp Hgb Conc 30.2 g/dL (32-36); Mean Corpuscular Hgb 28.1 pg (27.0-32.0); Mean Corpuscular Volume 92.8 fL (80-94); Mean Platelet Vol. 10.9 fl (6.2-12.0); Monocyte# 0.48 X10^3/uL; Monocyte% 7.4 % (0-10); NRBC Flagged by Analyzer 0 % (0-5); Neutrophil # 5.37 X10^3/uL (2.7-7.7); Neutrophil % 82.3 % (47-70); POSITIVE DIFFERENTIAL YES; Platelet Count 207 K/mm3 (150-450); RBC Distribution Width CV 15.2 % (11.6-14.6); RBC Distribution Width SD 51.7 fl (35.1-43.9); RET-HE 32.5 pg (30-35); Red Blood Count 3.49 M/mm3 (4.6-6.2); Reticulocyte Count 1.83 % (0.5-1.5); White Blood Count 6.5 K/mm3 (4.4-11.0)
[2020-07-28 12:21] LABS: Differential Indicated SCAN CRITERIA MET
[2020-07-28 12:33] LABS: Vitamin B12 484 pg/mL (211-911)
[2020-07-28 12:45] LABS: Platelet Estimate ADEQUATE (ADEQ); Red Cell Morphology NORM C+C NORMAL (NORM C&C)
[2020-07-28 13:13] LABS: Ferritin 96 ng/mL (26-388); Iron 46 ug/dL (65-175); Iron Binding Capacity,Total 315 ug/dL (250-450)
== END ==
PROVIDERS: PCP Family Medicine Geriatric Medicine; Visit Provider Family Medicine Geriatric Medicine
DX: D64.9 Anemia, unspecified (principal)
CPT/HCPCS: 36415; 82607; 82728; 82746; 83540; 83550; 85025; 85045

== ENCOUNTER → 2020-08-08 13:23 | Outpatient (CLI) | payer MEDICARE, SELFPAY ==
[2020-07-14 08:13] VITALS: BMI 30.4
[2020-08-08 14:26] LABS: Absolute Lymphocyte Count 0.95 X10^3/uL (0.83-4.51); Absolute Neutrophil Count 5.3 X10^3/uL (2.0-7.7); Basophil# 0.01 X10^3/uL; Basophil% 0.1 % (0-1); Eosinophils% 1.4 % (0-5); Hematocrit 33.3 % (40-54); Hemoglobin 10.2 g/dL (13.0-16.5); Lymphocyte # 0.95 X10^3/ul (4.0); Lymphocyte % 13.7 % (19-41); Mean Corp Hgb Conc 30.6 g/dL (32-36); Mean Corpuscular Hgb 28.3 pg (27.0-32.0); Mean Corpuscular Volume 92.2 fL (80-94); Mean Platelet Vol. 10.5 fl (6.2-12.0); Monocyte# 0.54 X10^3/uL; Monocyte% 7.8 % (0-10); NRBC Flagged by Analyzer 0 % (0-5); Neutrophil # 5.32 X10^3/uL (2.7-7.7); Neutrophil % 76.6 % (47-70); Platelet Count 245 K/mm3 (150-450); RBC Distribution Width CV 14.9 % (11.6-14.6); RBC Distribution Width SD 50.7 fl (35.1-43.9); Red Blood Count 3.61 M/mm3 (4.6-6.2)
[2020-08-08 14:47] LABS: Thyroid Stim Hormone (TSH) 6.16 uIU/mL (0.358-3.74)
== END ==
PROVIDERS: PCP Family Medicine Geriatric Medicine; Visit Provider Family Medicine Geriatric Medicine
DX: I10 Essential (primary) hypertension (principal)
CPT/HCPCS: 36415; 84443; 85025

== ENCOUNTER → 2020-09-27 09:56 | Outpatient (CLI) | payer MEDICARE, SELFPAY ==
[2020-09-27 13:11] LABS: Thyroid Stim Hormone (TSH) 3.48 uIU/mL (0.358-3.74)
== END ==
PROVIDERS: PCP Family Medicine Geriatric Medicine; Visit Provider Family Medicine Geriatric Medicine
DX: E03.9 Hypothyroidism, unspecified (principal)
CPT/HCPCS: 36415; 84443

== ENCOUNTER → 2020-10-06 09:41 | Outpatient (CLI) | payer MEDICARE, SELFPAY ==
[2020-10-06 12:20] LABS: Erythrocyte Sedimentation Rate 86 mm/hr (0-20)
[2020-10-06 12:21] LABS: Absolute Lymphocyte Count 0.61 X10^3/uL (0.83-4.51); Absolute Neutrophil Count 6.6 X10^3/uL (2.0-7.7); Basophil# 0.02 X10^3/uL; Basophil% 0.2 % (0-1); Eosinophil# 0.11 X10^3/uL; Eosinophils% 1.4 % (0-5); Hemoglobin 9.5 g/dL (13.0-16.5); Lymphocyte # 0.61 X10^3/ul (0.83-4.51); Lymphocyte % 7.5 % (19-41); Mean Corp Hgb Conc 30.6 g/dL (32-36); Mean Corpuscular Hgb 27.1 pg (27.0-32.0); Mean Corpuscular Volume 88.6 fL (80-94); Mean Platelet Vol. 10.5 fl (6.2-12.0); Monocyte# 0.65 X10^3/uL; NRBC Flagged by Analyzer 0 % (0-5); Neutrophil # 6.62 X10^3/uL (2.7-7.7); Neutrophil % 81.8 % (47-70); Platelet Count 254 K/mm3 (150-450); RBC Distribution Width SD 48.6 fl (35.1-43.9); White Blood Count 8.1 K/mm3 (4.4-11.0)
[2020-10-06 12:56] LABS: Anion Gap 8 (5-15); BUN 37 mg/dL (7-18); BUN/Creat Ratio 25.9 RATIO (10-20); Calcium,Total 8.6 mg/dL (8.5-10.1); Chloride 111 mmol/L (98-107); Creatinine, Serum 1.43 mg/dL (0.70-1.30); EST Glomerular Filtration Rate 50 mL/min (>60); Est Glom Filt Rate - Afr Amer 61 mL/min (>60); Glucose 148 mg/dL (74-106); Potassium 4.9 mmol/L (3.5-5.1); Sodium Level 136 mmol/L (136-145); Uric Acid 8.3 mg/dL (3.5-7.2)
== END ==
PROVIDERS: PCP Family Medicine Geriatric Medicine; Visit Provider Family Medicine Geriatric Medicine
DX: R79.9 Abnormal finding of blood chemistry, unspecified (principal); R07.9 Chest pain, unspecified
CPT/HCPCS: 36415; 80048; 84550; 85025; 85652; 86141

== ENCOUNTER → 2020-10-10 14:56 | Outpatient (CLI) | payer MEDICARE, SELFPAY ==
[2020-10-10 16:59] LABS: Absolute Lymphocyte Count 0.83 X10^3/uL (0.83-4.51); Absolute Neutrophil Count 6.6 X10^3/uL (2.0-7.7); Basophil# 0.02 X10^3/uL; Basophil% 0.2 % (0-1); Hematocrit 31.8 % (40-54); Hemoglobin 9.9 g/dL (13.0-16.5); Lymphocyte # 0.83 X10^3/ul (0.83-4.51); Lymphocyte % 10.1 % (19-41); Mean Corp Hgb Conc 31.1 g/dL (32-36); Mean Corpuscular Hgb 27.1 pg (27.0-32.0); Mean Corpuscular Volume 87.1 fL (80-94); Mean Platelet Vol. 10.3 fl (6.2-12.0); Monocyte% 7.3 % (0-10); NRBC Flagged by Analyzer 0 % (0-5); Neutrophil # 6.59 X10^3/uL (2.7-7.7); Neutrophil % 80.7 % (47-70); Platelet Count 285 K/mm3 (150-450); RBC Distribution Width CV 15.4 % (11.6-14.6); RBC Distribution Width SD 49.1 fl (35.1-43.9); Red Blood Count 3.65 M/mm3 (4.6-6.2); White Blood Count 8.2 K/mm3 (4.4-11.0)
[2020-10-10 17:30] LABS: ALB/GLOB Ratio 0.6 RATIO (0.9-2.4); AST(SGOT) 15 U/L (15-37); Alanine Aminotransfer ALT/SGPT 25 U/L (16-61); Albumin, Serum 3.2 g/dL (3.2-5.0); Alkaline Phosphatase 97 U/L (45-117); Anion Gap 5 (5-15); BUN 48 mg/dL (7-18); Calcium,Total 8.6 mg/dL (8.5-10.1); Chloride 112 mmol/L (98-107); Cholesterol 169 mg/dL (200); Creatinine, Serum 1.41 mg/dL (0.70-1.30); EST Glomerular Filtration Rate 51 mL/min (>60); Est Glom Filt Rate - Afr Amer 62 mL/min (>60); Glucose 113 mg/dL (74-106); High Density Lipoprotein 67 mg/dL; Potassium 5.3 mmol/L (3.5-5.1); Protein, Total 8.2 g/dL (6.4-8.2); Sodium Level 138 mmol/L (136-145); Thyroid Stim Hormone (TSH) 2.68 uIU/mL (0.358-3.74); Triglycerides 93 mg/dL; Very Low Density Lipoprotein 19 mg/dL (5-40)
[2020-10-12 12:22] LABS: Vitamin D,25 Hydroxy 28.8 ng/mL
== END ==
PROVIDERS: PCP Family Medicine Geriatric Medicine; Visit Provider Family Medicine Geriatric Medicine
DX: E55.9 Vitamin D deficiency, unspecified (principal); E78.5 Hyperlipidemia, unspecified; R53.83 Other fatigue
CPT/HCPCS: 36415; 80053; 80061; 82306; 84443; 85025

== ENCOUNTER → 2020-10-12 13:13 | Outpatient (CLI) | payer MEDICARE, SELFPAY ==
[2020-10-12 17:33] LABS: Anion Gap 5 (5-15); BUN 42 mg/dL (7-18); BUN/Creat Ratio 31.1 RATIO (10-20); Chloride 112 mmol/L (98-107); Creatinine, Serum 1.35 mg/dL (0.70-1.30); EST Glomerular Filtration Rate 54 mL/min (>60); Est Glom Filt Rate - Afr Amer 65 mL/min (>60); Glucose 90 mg/dL (74-106); Potassium 5.4 mmol/L (3.5-5.1); Sodium Level 136 mmol/L (136-145)
== END ==
PROVIDERS: PCP Family Medicine Geriatric Medicine; Visit Provider Family Medicine Geriatric Medicine
DX: I10 Essential (primary) hypertension (principal)
CPT/HCPCS: 36415; 80048

== ENCOUNTER → 2020-10-17 13:46 | Outpatient (CLI) | payer MEDICARE, SELFPAY ==
[2020-10-17 16:33] LABS: Anion Gap 5 (5-15); BUN 46 mg/dL (7-18); BUN/Creat Ratio 32.6 RATIO (10-20); Calcium,Total 8.8 mg/dL (8.5-10.1); Chloride 113 mmol/L (98-107); Creatinine, Serum 1.41 mg/dL (0.70-1.30); EST Glomerular Filtration Rate 51 mL/min (>60); Est Glom Filt Rate - Afr Amer 62 mL/min (>60); Glucose 85 mg/dL (74-106); Potassium 5.3 mmol/L (3.5-5.1); Sodium Level 138 mmol/L (136-145)
== END ==
PROVIDERS: PCP Family Medicine Geriatric Medicine; Referring Provider Family Medicine Geriatric Medicine; Visit Provider Family Medicine Geriatric Medicine
DX: E87.5 Hyperkalemia (principal)
CPT/HCPCS: 36415; 80048

== ENCOUNTER → 2020-10-19 14:39 | Outpatient (CLI) | payer MEDICARE, SELFPAY ==
[2020-10-19 17:44] LABS: Anion Gap 10 (5-15); BUN 50 mg/dL (7-18); BUN/Creat Ratio 29.6 RATIO (10-20); Calcium,Total 8.4 mg/dL (8.5-10.1); Chloride 111 mmol/L (98-107); Creatinine, Serum 1.69 mg/dL (0.70-1.30); EST Glomerular Filtration Rate 42 mL/min (>60); Est Glom Filt Rate - Afr Amer 50 mL/min (>60); Glucose 89 mg/dL (74-106); Sodium Level 139 mmol/L (136-145)
== END ==
PROVIDERS: PCP Family Medicine Geriatric Medicine; Visit Provider Family Medicine Geriatric Medicine
DX: E87.5 Hyperkalemia (principal)
CPT/HCPCS: 36415; 80048

== ENCOUNTER → 2020-11-14 14:46 | Outpatient (CLI) | payer MEDICARE, SELFPAY ==
--- NOTE | 2020-11-14 14:48 | RAD_ITS ---
STUDY: X-RAY - RIGHT SHOULDER REASON FOR EXAM: Male, 80 years old. Pain TECHNIQUE: 4 view(s) of the shoulder. COMPARISON: None. FINDINGS: There is no evidence of fracture or dislocation. There are advanced degenerative changes in the glenohumeral and acromioclavicular joint. There are no radiodense foreign bodies. RAD/Shoulder min 2 Views IMPRESSION: No fracture or dislocation in the right shoulder. Advanced degenerative change. Electronically Signed: Stanley Jackson MD at 10:41 EDT Tel , Service support ,
== END ==
PROVIDERS: PCP Family Medicine Geriatric Medicine; Referring Provider Family Medicine Geriatric Medicine; Visit Provider Family Medicine Geriatric Medicine
DX: M25.519 Pain in unspecified shoulder (principal)
CPT/HCPCS: 73030

== ENCOUNTER → 2020-12-07 11:05 | Outpatient (CLI) | payer MEDICARE, SELFPAY ==
[2020-12-07 12:45] LABS: Erythrocyte Sedimentation Rate 74 mm/hr (0-20)
[2020-12-07 12:46] LABS: Absolute Lymphocyte Count 0.59 X10^3/uL (0.83-4.51); Absolute Neutrophil Count 7.6 X10^3/uL (2.0-7.7); Basophil# 0.01 X10^3/uL; Basophil% 0.1 % (0-1); Eosinophil# 0.09 X10^3/uL; Hematocrit 31.6 % (40-54); Hemoglobin 9.8 g/dL (13.0-16.5); Lymphocyte # 0.59 X10^3/ul (0.83-4.51); Lymphocyte % 6.6 % (19-41); Mean Corpuscular Hgb 27.7 pg (27.0-32.0); Mean Corpuscular Volume 89.3 fL (80-94); Mean Platelet Vol. 10.5 fl (6.2-12.0); Monocyte# 0.59 X10^3/uL; Monocyte% 6.6 % (0-10); NRBC Flagged by Analyzer 0 % (0-5); Neutrophil # 7.56 X10^3/uL (2.7-7.7); Neutrophil % 84.7 % (47-70); POSITIVE DIFFERENTIAL YES; Platelet Count 230 K/mm3 (150-450); RBC Distribution Width CV 16.7 % (11.6-14.6); RBC Distribution Width SD 54.9 fl (35.1-43.9); Red Blood Count 3.54 M/mm3 (4.6-6.2); White Blood Count 8.9 K/mm3 (4.4-11.0)
[2020-12-07 12:48] LABS: Differential Indicated SCAN CRITERIA MET
[2020-12-07 12:54] LABS: Anion Gap 6 (5-15); BUN 46 mg/dL (7-18); BUN/Creat Ratio 31.1 RATIO (10-20); Calcium,Total 8.9 mg/dL (8.5-10.1); Chloride 114 mmol/L (98-107); Creatinine, Serum 1.48 mg/dL (0.70-1.30); EST Glomerular Filtration Rate 48 mL/min (>60); Est Glom Filt Rate - Afr Amer 59 mL/min (>60); Glucose 91 mg/dL (74-106); Potassium 5.8 mmol/L (3.5-5.1); Sodium Level 137 mmol/L (136-145); Uric Acid 7.9 mg/dL (3.5-7.2)
[2020-12-07 13:14] LABS: Hypochromasia 1+; Platelet Estimate ADEQUATE (ADEQ)
== END ==
PROVIDERS: PCP Family Medicine Geriatric Medicine; Visit Provider Family Medicine Geriatric Medicine
DX: R79.9 Abnormal finding of blood chemistry, unspecified (principal)
CPT/HCPCS: 36415; 80048; 84550; 85025; 85652; 86140

== ENCOUNTER → 2020-12-09 15:45 | Outpatient (CLI) | payer MEDICARE, SELFPAY ==
[2020-12-09 16:32] LABS: Anion Gap 8 (5-15); BUN 65 mg/dL (7-18); BUN/Creat Ratio 35.5 RATIO (10-20); Calcium,Total 8.1 mg/dL (8.5-10.1); Chloride 115 mmol/L (98-107); Creatinine, Serum 1.83 mg/dL (0.70-1.30); EST Glomerular Filtration Rate 38 mL/min (>60); Est Glom Filt Rate - Afr Amer 46 mL/min (>60); Glucose 94 mg/dL (74-106); Potassium 4.8 mmol/L (3.5-5.1); Sodium Level 139 mmol/L (136-145)
== END ==
PROVIDERS: PCP Family Medicine Geriatric Medicine; Referring Provider Family Medicine Geriatric Medicine; Visit Provider Family Medicine Geriatric Medicine
DX: E87.5 Hyperkalemia (principal)
CPT/HCPCS: 36415; 80048

== ENCOUNTER → 2020-12-15 11:15 | Outpatient (CLI) | payer MEDICARE, SELFPAY | PROVIDERS: PCP Family Medicine Geriatric Medicine; Referring Provider Nurse Practitioner Acute Care; Visit Provider Nurse Practitioner Acute Care | DX: J45.909 Unspecified asthma, uncomplicated (principal) | CPT/HCPCS: 87070; 87077; 87205 ==

== ENCOUNTER → 2021-01-08 15:35 | Outpatient (CLI) | payer MEDICARE, SELFPAY ==
[2021-01-08 17:03] LABS: Absolute Lymphocyte Count 0.73 X10^3/uL (0.83-4.51); Absolute Neutrophil Count 5.7 X10^3/uL (2.0-7.7); Basophil# 0.01 X10^3/uL; Basophil% 0.1 % (0-1); Eosinophil# 0.05 X10^3/uL; Eosinophils% 0.7 % (0-5); Hematocrit 31.1 % (40-54); Hemoglobin 9.7 g/dL (13.0-16.5); Lymphocyte # 0.73 X10^3/ul (0.83-4.51); Mean Corp Hgb Conc 31.2 g/dL (32-36); Mean Corpuscular Hgb 28.4 pg (27.0-32.0); Mean Corpuscular Volume 91.2 fL (80-94); Mean Platelet Vol. 10.9 fl (6.2-12.0); Monocyte# 0.82 X10^3/uL; Monocyte% 11.2 % (0-10); NRBC Flagged by Analyzer 0.4 % (0-5); Neutrophil # 5.65 X10^3/uL (2.7-7.7); Neutrophil % 77.2 % (47-70); Platelet Count 196 K/mm3 (150-450); RBC Distribution Width CV 16.9 % (11.6-14.6); RBC Distribution Width SD 56.9 fl (35.1-43.9); Red Blood Count 3.41 M/mm3 (4.6-6.2); White Blood Count 7.3 K/mm3 (4.4-11.0)
[2021-01-08 17:17] LABS: Vitamin D,25 Hydroxy 30.6 ng/mL
[2021-01-08 17:35] LABS: ALB/GLOB Ratio 0.8 RATIO (0.9-2.4); AST(SGOT) 18 U/L (15-37); Alanine Aminotransfer ALT/SGPT 24 U/L (16-61); Albumin, Serum 3.5 g/dL (3.2-5.0); Alkaline Phosphatase 91 U/L (45-117); Anion Gap 8 (5-15); BUN 52 mg/dL (7-18); Calcium,Total 8.9 mg/dL (8.5-10.1); Chloride 113 mmol/L (98-107); Cholesterol 202 mg/dL (200); Creatinine, Serum 2.08 mg/dL (0.70-1.30); EST Glomerular Filtration Rate 33 mL/min (>60); Est Glom Filt Rate - Afr Amer 40 mL/min (>60); Globulin 4.2 g/dL (2.2-4.2); Glucose 99 mg/dL (74-106); High Density Lipoprotein 47 mg/dL; Potassium 4.9 mmol/L (3.5-5.1); Protein, Total 7.7 g/dL (6.4-8.2); Sodium Level 138 mmol/L (136-145); Thyroid Stim Hormone (TSH) 2.36 uIU/mL (0.358-3.74); Triglycerides 170 mg/dL; Uric Acid 6.6 mg/dL (3.5-7.2); Very Low Density Lipoprotein 34 mg/dL (5-40)
== END ==
PROVIDERS: PCP Family Medicine Geriatric Medicine; Visit Provider Family Medicine Geriatric Medicine
DX: E55.9 Vitamin D deficiency, unspecified (principal); E78.5 Hyperlipidemia, unspecified; M10.9 Gout, unspecified; R53.83 Other fatigue
CPT/HCPCS: 36415; 80053; 80061; 82306; 84443; 84550; 85025

== ENCOUNTER → 2021-01-16 09:27 | Outpatient (CLI) | payer MEDICARE, SELFPAY ==
[2021-01-16 10:52] LABS: Anion Gap 5 (5-15); BUN 73 mg/dL (7-18); BUN/Creat Ratio 38.4 RATIO (10-20); Chloride 112 mmol/L (98-107); EST Glomerular Filtration Rate 36 mL/min (>60); Est Glom Filt Rate - Afr Amer 44 mL/min (>60); Glucose 110 mg/dL (74-106); Potassium 5.2 mmol/L (3.5-5.1); Sodium Level 137 mmol/L (136-145)
== END ==
PROVIDERS: PCP Family Medicine Geriatric Medicine; Visit Provider Family Medicine Geriatric Medicine
DX: R94.4 Abnormal results of kidney function studies (principal)
CPT/HCPCS: 36415; 80048

== ENCOUNTER → 2021-01-19 12:51 | Outpatient (CLI) | payer MEDICARE, SELFPAY ==
[2021-01-19 14:42] LABS: Anion Gap 7 (5-15); BUN 63 mg/dL (7-18); BUN/Creat Ratio 42.3 RATIO (10-20); Calcium,Total 9.1 mg/dL (8.5-10.1); Chloride 110 mmol/L (98-107); Creatinine, Serum 1.49 mg/dL (0.70-1.30); EST Glomerular Filtration Rate 48 mL/min (>60); Est Glom Filt Rate - Afr Amer 58 mL/min (>60); Glucose 109 mg/dL (74-106); Potassium 4.7 mmol/L (3.5-5.1); Sodium Level 137 mmol/L (136-145)
== END ==
PROVIDERS: PCP Family Medicine Geriatric Medicine; Referring Provider Family Medicine Geriatric Medicine; Visit Provider Family Medicine Geriatric Medicine
DX: R94.4 Abnormal results of kidney function studies (principal)
CPT/HCPCS: 36415; 80048

== ENCOUNTER 2021-08-06 11:06 | Outpatient (CLI) | payer MEDICARE, SELFPAY ==
[2021-08-06 12:27] LABS: Vitamin D,25 Hydroxy 28.4 ng/mL
[2021-08-06 12:40] LABS: ALB/GLOB Ratio 0.7 RATIO (0.9-2.4); AST(SGOT) 17 U/L (15-37); Alanine Aminotransfer ALT/SGPT 19 U/L (16-61); Albumin, Serum 3.4 g/dL (3.2-5.0); Alkaline Phosphatase 115 U/L (45-117); Anion Gap 6 (5-15); BUN 32 mg/dL (7-18); BUN/Creat Ratio 22.9 RATIO (10-20); Calcium,Total 8.7 mg/dL (8.5-10.1); Chloride 112 mmol/L (98-107); Cholesterol 170 mg/dL (200); EST Glomerular Filtration Rate 52 mL/min (>60); Est Glom Filt Rate - Afr Amer 62 mL/min (>60); Glucose 98 mg/dL (74-106); High Density Lipoprotein 50 mg/dL; PSA,Total - Annual Screen < 0.01 ng/mL (0.00-4.00); Potassium 5.1 mmol/L (3.5-5.1); Protein, Total 8.4 g/dL (6.4-8.2); Sodium Level 137 mmol/L (136-145); Thyroid Stim Hormone (TSH) 4.33 uIU/mL (0.358-3.74); Triglycerides 128 mg/dL; Very Low Density Lipoprotein 26 mg/dL (5-40)
[2021-08-06 13:40] LABS: BNP,B-Type NATRIURETIC PEPTIDE 96.9 pg/mL (0-100)
[2021-08-06 13:45] LABS: Free T3 2.1 pg/mL (2.18-3.98); T4 Free Direct 1.01 ng/dL (0.76-1.46)
== END 2021-08-06 23:59 | disposition home or self-care (01) ==
LOC: BIMLAB 11:07
PROVIDERS: PCP Internal Medicine; Referring Provider Internal Medicine; Visit Provider Internal Medicine
DX: R06.02 Shortness of breath (principal); I25.119 Atherosclerotic heart disease of native coronary artery with unspecified angina pectoris; N18.31 Chronic kidney disease, stage 3a; I12.9 Hypertensive chronic kidney disease with stage 1 through stage 4 chronic kidney disease, or unspecified chronic kidney disease; D50.0 Iron deficiency anemia secondary to blood loss (chronic); D63.1 Anemia in chronic kidney disease; E78.5 Hyperlipidemia, unspecified; I35.0 Nonrheumatic aortic (valve) stenosis; K21.9 Gastro-esophageal reflux disease without esophagitis; E03.9 Hypothyroidism, unspecified; Z85.46 Personal history of malignant neoplasm of prostate; Z12.5 Encounter for screening for malignant neoplasm of prostate
CPT/HCPCS: 36415; 80053; 80061; 82306; 83880; 84153; 84439; 84443; 84481; G0103

== ENCOUNTER 2021-08-22 13:56 | Outpatient (CLI) | payer MEDICARE, SELFPAY ==
--- NOTE | 2021-08-22 14:04 | ECHOCS_ITS ---
Reason For Study: Dyspnea/SOB Procedure This was a 2D Doppler, Color Flow transthoracic echocardiogram. The study was technically difficult. Contrast injection was performed. Exam performed in department. Left Ventricle Normal LV size. Sigmoid septum. Left ventricular systolic function is normal. The estimated ejection fraction is 60 %. Stage 2 diastolic dysfunction. No regional wall motion abnormalities noted. Right Ventricle Normal RV size. Normal systolic function. Atria The left atrium is moderately enlarged. Normal right atrium. Mitral Valve There is moderate mitral annular calcification. Mild (1+) eccentric mitral valve insufficiency. Tricuspid Valve Normal tricuspid valve. Mild (1+) tricuspid valve insufficiency. Pulmonary artery systolic pressure is 40 mmHg. Aortic Valve Trisinus/trileaflet aortic valve. Moderate focal aortic valve thickening. Peak aortic valve gradient 53 mmHg. Mean aortic valve gradient 32 mmHg. Moderate aortic stenosis. Pulmonic Valve Normal pulmonic valve. Great Vessels Normal aortic root. The pulmonary artery is normal size. Normal inferior vena cava. Pericardium/Pleural No pericardial effusion. Medication 22 gauge I.V. with prn adaptor inserted into right arm. Diluted definity 2ml given slow IV push to enhance endocardial definition. MMode/2D Measurements & Calculations LVIDd: 4.8 cm IVSd: 1.3 cm LVOT diam: 2.0 cm LVIDs: 3.0 cm LVPWd: 0.93 cm RVDd: 4.0 cm FS: 38.7 % LVOT area: 3.1 cm2 Ao root diam: 3.2 cm LAV(MOD-bp): 74.5 ml LA A4 area: 24.2 cm2 LAV(MOD-bp) Indexed: 39.0 ml/m2 LAV(MOD-sp2): 73.9 ml LAV(MOD-sp4): 74.4 ml RA A4 area: 18.5 cm2 Time Measurements MV dec time: 0.33 sec Doppler Measurements & Calculations MV E max noah: 180.5 cm/sec Lat Peak E' Noah: 5.0 cm/sec Med Peak E' Noah: 6.7 cm/sec MV A max noah: 163.6 cm/sec E/E' lat: 36.3 E/E' med: 26.9 MV E/A: 1.1 MV V2 max: 186.2 cm/sec MV P1/2t max noah: 185.1 cm/sec Ao V2 max: 364.0 cm/sec MV max P.9 mmHg MV P1/2t: 84.9 msec Ao max P.0 mmHg MV V2 mean: 104.4 cm/sec MV dec slope: 638.6 cm/sec2 Ao V2 mean: 270.5 cm/sec MV mean P.2 mmHg Ao mean P.4 mmHg MV V2 VTI: 53.6 cm MVA(P1/2t): 2.6 cm2 Ao V2 VTI: 79.1 cm MVA(VTI): 1.5 cm2 FABY(I,D): 1.00 cm2 FABY(V,D): 0.94 cm2 LV V1 max: 109.2 cm/sec SV(LVOT): 78.8 ml PA V2 max: 93.8 cm/sec LV V1 max P.8 mmHg LV V1 mean P.7 mmHg LV V1 mean: 77.9 cm/sec LV V1 VTI: 25.2 cm TR max noah: 303.0 cm/sec TR max P.7 mmHg ECHO/Echo Complete W/ Contrast Interpretation Summary Normal LV size. Left ventricular systolic function is normal. The estimated ejection fraction is 60 %. Stage 2 diastolic dysfunction. Mean aortic valve gradient 32 mmHg. Moderate aortic stenosis. Pulmonary artery systolic pressure is 40 mmHg. Contrast injection was performed. Ordering Physician: Angelique Grossman Referring Physician: Angelique Grossman Performed By: Nj Mullen RCS
== END 2021-08-22 23:59 | disposition home or self-care (01) ==
PROVIDERS: PCP Internal Medicine; Referring Provider Internal Medicine; Visit Provider Internal Medicine
DX: R06.02 Shortness of breath (principal)
CPT/HCPCS: 93306; Q9957; A4216; C8929

== ENCOUNTER → 2021-09-12 | Outpatient (CLI) | payer MEDICARE, SELFPAY ==
[2021-09-12 11:41] LABS: Absolute Lymphocyte Count 0.72 X10^3/uL (0.83-4.51); Absolute Neutrophil Count 4.7 X10^3/uL (2.0-7.7); Basophil# 0.02 X10^3/uL; Basophil% 0.3 % (0-1); Eosinophil# 0.09 X10^3/uL; Eosinophils% 1.5 % (0-5); Hematocrit 33.4 % (40-54); Hemoglobin 10.5 g/dL (13.0-16.5); Lymphocyte # 0.72 X10^3/ul (0.83-4.51); Lymphocyte % 11.7 % (19-41); Mean Corp Hgb Conc 31.4 g/dL (32-36); Mean Corpuscular Hgb 28.2 pg (27.0-32.0); Mean Corpuscular Volume 89.8 fL (80-94); Mean Platelet Vol. 10.2 fl (6.2-12.0); Monocyte# 0.57 X10^3/uL; Monocyte% 9.2 % (0-10); NRBC Flagged by Analyzer 0 % (0-5); Neutrophil # 4.71 X10^3/uL (2.7-7.7); Neutrophil % 76.3 % (47-70); Platelet Count 216 K/mm3 (150-450); RBC Distribution Width CV 14.6 % (11.6-14.6); RBC Distribution Width SD 47.5 fl (35.1-43.9); Red Blood Count 3.72 M/mm3 (4.6-6.2); White Blood Count 6.2 K/mm3 (4.4-11.0)
[2021-09-12 11:59] LABS: Anion Gap 7 (5-15); BUN 40 mg/dL (7-18); Calcium,Total 9.1 mg/dL (8.5-10.1); Chloride 111 mmol/L (98-107); Creatinine, Serum 1.38 mg/dL (0.70-1.30); EST Glomerular Filtration Rate 52 mL/min (>60); Est Glom Filt Rate - Afr Amer 63 mL/min (>60); Glucose 101 mg/dL (74-106); Potassium 5.1 mmol/L (3.5-5.1); Sodium Level 139 mmol/L (136-145)
[2021-09-12 12:00] LABS: BNP,B-Type NATRIURETIC PEPTIDE 95.3 pg/mL (0-100)
== END | disposition home or self-care (01) ==
LOC: LAB 11:10
PROVIDERS: PCP Internal Medicine; Referring Provider Nurse Practitioner Gerontology; Visit Provider Nurse Practitioner Gerontology
DX: R06.00 Dyspnea, unspecified (principal)
CPT/HCPCS: 36415; 80048; 83880; 85025

== ENCOUNTER → 2021-11-06 | Outpatient (CLI) | payer MEDICARE, SELFPAY ==
[2021-11-06 12:45] LABS: Free T3 2.1 pg/mL (2.18-3.98); T4 Free Direct 1.12 ng/dL (0.76-1.46); Thyroid Stim Hormone (TSH) 2.35 uIU/mL (0.358-3.74)
== END | disposition home or self-care (01) ==
LOC: BIMLAB 11:06
PROVIDERS: PCP Internal Medicine; Visit Provider Internal Medicine
DX: E03.9 Hypothyroidism, unspecified (principal)
CPT/HCPCS: 36415; 84439; 84443; 84481

== ENCOUNTER → 2021-12-26 | Outpatient (CLI) | payer MEDICARE, SELFPAY ==
[2021-12-26 12:30] VITALS: PULSE 100; PULSE 107; PULSE 112; PULSE 113; PULSE 115; PULSE 117; PULSE 118; PULSE 96; O2SAT 95; O2SAT 96; O2SAT 97; O2SAT 98
--- NOTE | 2021-12-27 13:40 | WT_ITS ---
PSN 6 Minute Walk Test 6 Minute Walk Test 6 Minute Walk Test: 6 Minute Walk Test PSN:6-Minute Walk Test Start: 12/26/21 13:09 Freq: Status: Active Protocol: RESP.6MINW Document 12/26/21 12:30 JLA (Rec: 12/26/21 13:14 JLA [id number]) 6 Minute Walk Test Date Performed 12/26/21 Time Performed 12:30 Height 5 ft 5 in Weight: 183 lb Weight in Pounds 183.[address]: Jessica De La Cruz SENIOR PROJECT COORDINATOR Assistive device used: None Pre-test Oxygen Delivery Method Room Air Pulse Ox (%) 98 Pulse Rate (60-100 beats/min) 96 Dyspnea Polina Scale (0-10) 0.5 Exertion Polina Scale (6-20) 6 1st minute Oxygen Delivery Method Room Air Pulse Ox (%) 98 Pulse Rate (60-100 beats/min) 107 H 2nd minute Oxygen Delivery Method Room Air Pulse Ox (%) 97 Pulse Rate (60-100 beats/min) 112 H 3rd minute Oxygen Delivery Method Room Air Pulse Ox (%) 98 Pulse Rate (60-100 beats/min) 113 H 4th minute Oxygen Delivery Method Room Air Pulse Ox (%) 95 Pulse Rate (60-100 beats/min) 115 H 5th minute Oxygen Delivery Method Room Air Pulse Ox (%) 97 Pulse Rate (60-100 beats/min) 117 H 6th minute Oxygen Delivery Method Room Air Pulse Ox (%) 96 Pulse Rate (60-100 beats/min) 118 H Dyspnea Polina Scale (0-10) 3 Exertion Polina Scale (6-20) 12 Post-test Oxygen Delivery Method Room Air Pulse Ox (%) 98 Pulse Rate (60-100 beats/min) 100 Full Laps Walked 14 Partial Lap, Number of Tiles Walked 0 Total Distance Walked (ft) 826 Interpretation Interpretation: The patient ambulated 826 feet over the course of 6 minutes beginning on room air without assistive devices or breaks. Pretesting oxygen saturation was noted to be 98% on room air. With ambulation, the carlin oxygen saturation was 95%. There was no significant exertional oxygen desaturation. Recommendations Recommendations: There is no indication for the use of supplemental oxygen at this time.
== END | disposition home or self-care (01) ==
LOC: PSN 12:30
PROVIDERS: PCP Internal Medicine; Referring Provider Nurse Practitioner Acute Care; Visit Provider Nurse Practitioner Acute Care
DX: R06.00 Dyspnea, unspecified (principal)
CPT/HCPCS: 94618

== ENCOUNTER 2022-01-01 10:47 | Emergency (ER) | payer MEDICARE, SELFPAY ==
[2022-01-01 10:48] VITALS: BP 80/68; PULSE 88; RESP 20; TEMP 36.8; O2SAT 94; BMI 31.3
--- NOTE | 2022-01-01 10:58 | ED.VIS.LOWEX ---
HPI History of Present Illness Chief Complaint: Laceration Narrative Narrative: Patient with past medical history of anemia presents with skin tears to his left lower extremity. He states that he was walking through a field, enjoying the weather, and wearing shorts when he must have run into a leigh alcazar. He walked, and felt pain in his left lower extremity, and noticed he was bleeding. He states he had to walk a quarter of a mile home and presents because of the injury to his leg. He denies any chest pain or shortness of breath. No lightheadedness. No other injury. He is unsure of his last tetanus immunization. [facility] Medical History Anemia of chronic renal failure, stage 3 (moderate) Aortic stenosis Arthritis Bruising Chronic asthma Coronary heart disease COVID-19 vaccine series completed Essential (primary) hypertension Hay fever HLD (hyperlipidemia) Hypothyroidism Iron deficiency anemia due to chronic blood loss Knee pain Personal history of colonic polyps Pneumonia Pulmonary arterial hypertension Pulmonary embolism Shortness of breath Shoulder pain Skin cancer Home Medications nitroglycerin 0.4 mg sublingual tablet 0.4 mg sublingual PRN PRN CHEST PAIN 05/01/18 [History Last Taken Unknown] acetaminophen 500 mg tablet 1,000 mg PO BID PRN PRN Pain 12/04/18 [History Last Taken 12/03/18] epinephrine 0.3 mg/0.3 mL injection, auto-injector 0.3 mg IJ PRN PRN Anaphylaxis 12/04/18 [History Last Taken Unknown] multivitamin 1 tab PO QAM 04/19/19 [History Last Taken Unknown] lisinopril 5 mg tablet 5 mg PO DAILY 01/25/21 [History Last Taken Unknown] polysaccharide iron complex 150 mg iron capsule 150 mg PO DAILY 01/25/21 [History Last Taken Unknown] febuxostat 40 mg tablet 40 mg PO DAILY 02/28/21 [History Last Taken Unknown] albuterol sulfate 2.5 mg/3 mL (0.083 %) solution for nebulization 2.5 mg (3 mL) inhalation Q6H #180 mL 05/04/21 [Rx Last Taken Unknown] fluticasone propionate 230 mcg-salmeterol 21 mcg/actuation HFA inhaler 2 puff inhalation BID #1 device 07/23/21 [Rx Last Taken Unknown] tiotropium bromide 2.5 mcg/actuation mist for inhalation (Spiriva Respimat) 2 puff inhalation QDAY #1 ea 07/23/21 [Rx Last Taken Unknown] albuterol sulfate 90 mcg/actuation aerosol inhaler 2 puff inhalation Q4H PRN PRN Sob &/Or Wheezing #1 ea 08/03/21 [Rx Last Taken Unknown] levothyroxine 75 mcg tablet 75 mcg PO DAILY #90 tabs 08/08/21 [Rx Last Taken Unknown] chlorthalidone 25 mg tablet 25 mg PO DAILY #90 tabs 08/13/21 [Rx Last Taken Unknown] sertraline 100 mg tablet 100 mg PO DAILY #30 tabs 08/23/21 [Rx Last Taken Unknown] prednisone 10 mg tablet 10 mg PO DAILY #30 tabs 12/17/21 [Rx Last Taken Unknown] famotidine 40 mg tablet 40 mg PO DAILY #30 tabs 12/31/21 [Rx Last Taken Unknown] Allergy/AdvReac Type Severity Reaction Status Date / Time indomethacin [From Indocin] AdvReac Intermediate Itching Verified 12/31/21 14:15 indomethacin sodium AdvReac Intermediate Itching Verified 12/31/21 14:15 [From Indocin] oxycodone HCl [From Percocet] AdvReac Intermediate Itching Verified 12/31/21 14:15 Family History Father Heart disease Colon cancer Sister Diabetes Mother Breast cancer Surgical History H/O hernia repair H/O prostatectomy H/O shoulder surgery H/O total knee replacement History of appendectomy History of carpal tunnel surgery History of total left hip replacement Social History household members: spouse housing: house Smoking Status: Never smoker second hand exposure: No alcohol intake: current alcohol intake frequency: holidays/special occasions only Alcohol type: beer substance use type: does not use caffeine: Yes Type: coffee Number of servings: 2 what type of physical activity do you participate in: walking frequency: daily 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 HEENT: No sore throat. No neck pain. No loss of vision. No rhinorrhea. Cardiovascular: No chest pain. No palpitations. No pedal edema. Respiratory: No cough, no shortness of breath. Abdominal: No abdominal pain. No nausea. No vomiting. Genitourinary: No dysuria. No hematuria. Musculoskeletal: No myalgias. No arthralgias. Neurologic: No headaches. No dizziness. No lightheadedness. Skin: No rash. No change in color. Lacerations to the left anterior tibial area. Psychiatric: No depression. No anxiety. EXAM Physical Exam Narrative Exam Narrative: Afebrile. Vital signs noted. HEENT: Normocephalic. Atraumatic. PERRL, EOMI. Neck soft and supple. No point tenderness or step off. Cardiovascular: Regular rate and rhythm. No murmurs, rubs, or gallops appreciated. Respiratory: No tachypnea. Lungs clear to auscultation bilaterally. Gastrointestinal: Abdomen soft, nontender, with normoactive bowel sounds. No rebound or guarding. Neurological: Awake. Alert. Nonfocal, nonlateralizing. Skin: No rash. Normal color. No pallor. Multiple skin tears to left anterior tibial surface area. 1 flap-like laceration more medial, approximately 3 cm in length. 2 adjacent linear skin tears approximately 4 cm in length adjacent. One 3 to 4 cm skin tear more lateral. Musculoskeletal: No pedal edema. Full range of motion extremities. Palpable dorsalis pedis pulse, neurovascularly intact distal to skin tears on left lower extremity. Const Vital Signs: 01/01/22 10:48 Temperature 98.2 F Temperature Source Oral Pulse Rate 88 Respiratory Rate 20 H Blood Pressure 80/68 L Blood Pressure Mean 72 Pulse Ox 94 Oxygen Delivery Method Room Air MDM MDM MDM Narrative Medical decision making narrative: I do not feel that the skin tears are amenable to suturing. His wounds will be cleansed, he will be given an Adacel injection, and Steri-Strips will be used were possible for closure. Nonadherent dressing will be applied. He was told that these will need to heal by secondary intent and he acknowledges an understanding. He is to look for signs of infection and follow-up with his primary care provider. I feel he can be discharged safely home with follow-up. Return instructions were reviewed. Disposition is discharged home in stable condition. Discharge Plan Triage Chief Complaint: Laceration ED Provider: Jalil Lazo Dx/Rx/DC Orders Clinical Impression: Multiple skin tears, Skin tear of left lower leg without complication, Immunization, tetanus-diphtheria Instructions: Tdap Vaccine, ED Laceration Extremity, ED Skin Avulsion Prescriptions: No Action multivitamin Tablet 1 tab PO QAM polysaccharide iron complex 150 mg iron capsule 150 mg PO DAILY lisinopril 5 mg tablet 5 mg PO DAILY febuxostat 40 mg tablet 40 mg PO DAILY nitroglycerin 0.4 MG tablet, sublingual 0.4 mg sublingual PRN PRN (Reason: CHEST PAIN) epinephrine 0.3 MG/0.3 ML auto-injector 0.3 mg IJ PRN PRN (Reason: Anaphylaxis) acetaminophen 500 MG tablet 1,000 mg PO BID PRN PRN (Reason: Pain) albuterol sulfate 2.5 mg /3 mL (0.083 %) solution for nebulization 2.5 mg INHALATION Q6H Qty: 180 3RF fluticasone propion-salmeterol 230-21 mcg/actuation HFA aerosol inhaler 2 puff INHALATION BID Qty: 1 11RF Spiriva Respimat 2.5 mcg/actuation mist 2 puff INHALATION QDAY Qty: 1 11RF albuterol sulfate 90 mcg/actuation HFA aerosol inhaler 2 puff INHALATION Q4H PRN PRN (Reason: Sob &/Or Wheezing) Qty: 1 6RF levothyroxine 75 mcg tablet 75 mcg PO DAILY Qty: 90 3RF chlorthalidone 25 mg tablet 25 mg PO DAILY Qty: 90 3RF sertraline 100 mg tablet 100 mg PO DAILY Qty: 30 1RF prednisone 10 mg tablet 10 mg PO DAILY Qty: 30 0RF Rx Instructions: Take 4 tabs PO daily for 3 days, then 3 tabs daily for 3 days, then 2 tabs daily for 3 days, then 1 tab daily for 3 days famotidine 40 mg tablet 40 mg PO DAILY Qty: 30 11RF Primary Care Provider: Angelique Grossman Referrals: Angelique Grossman MD [Primary Care Provider] - 2 Days for wound check Disposition Disposition: Home, Self Care
[2022-01-01] MEDS: Diphth,Pertuss(Acell),Tet Vac 0.5 ML Vial IM (11:23)
[2022-01-01 12:30] VITALS: BP 105/67; PULSE 78; RESP 16; O2SAT 97
== END 2022-01-01 12:31 | disposition home or self-care (01) ==
LOC: ED 11:56
PROVIDERS: Emergency Provider Emergency Medicine; PCP Internal Medicine; Visit Provider Emergency Medicine
DX: S81.812A Laceration without foreign body, left lower leg, initial encounter (principal); I27.21 Secondary pulmonary arterial hypertension; N18.30 Chronic kidney disease, stage 3 unspecified; W60.XXXA Contact with nonvenomous plant thorns and spines and sharp leaves, initial encounter; Y93.01 Activity, walking, marching and hiking; D63.1 Anemia in chronic kidney disease; I25.10 Atherosclerotic heart disease of native coronary artery without angina pectoris; I12.9 Hypertensive chronic kidney disease with stage 1 through stage 4 chronic kidney disease, or unspecified chronic kidney disease; E78.5 Hyperlipidemia, unspecified; E03.9 Hypothyroidism, unspecified; Z86.711 Personal history of pulmonary embolism; Z85.828 Personal history of other malignant neoplasm of skin; J45.909 Unspecified asthma, uncomplicated; Z79.899 Other long term (current) drug therapy; I35.0 Nonrheumatic aortic (valve) stenosis; Z23 Encounter for immunization
CPT/HCPCS: 90471; 90715; 99284

== ENCOUNTER → 2022-01-04 | Outpatient (CLI) | payer MEDICARE, SELFPAY ==
[2022-01-04 15:06] LABS: Hematocrit 25.3 % (40-54); Hemoglobin 7.9 g/dL (13.0-16.5); Mean Corp Hgb Conc 31.2 g/dL (32-36); Mean Corpuscular Hgb 28.7 pg (27.0-32.0); Mean Platelet Vol. 10.5 fl (6.2-12.0); Platelet Count 173 K/mm3 (150-450); RBC Distribution Width CV 15.7 % (11.6-14.6); RBC Distribution Width SD 52.3 fl (35.1-43.9); Red Blood Count 2.75 M/mm3 (4.6-6.2); White Blood Count 7.5 K/mm3 (4.4-11.0)
[2022-01-04 15:23] LABS: Albumin, Serum 2.9 g/dL (3.2-5.0); BUN 44 mg/dL (7-18); BUN/Creat Ratio 22.7 RATIO (10-20); Calcium,Total 8.1 mg/dL (8.5-10.1); Chloride 112 mmol/L (98-107); Creatinine, Serum 1.94 mg/dL (0.70-1.30); EST Glomerular Filtration Rate 35 mL/min (>60); Est Glom Filt Rate - Afr Amer 43 mL/min (>60); Glucose 108 mg/dL (74-106); Phosphorus 3.7 mg/dL (2.5-4.9); Sodium Level 139 mmol/L (136-145)
[2022-01-04 15:24] LABS: Protein:Creat Ratio 147 mg/g CRE (0-200)
[2022-01-07 08:14] LABS: PTHIN 118.6 pg/mL (18.4-80.1)
== END | disposition home or self-care (01) ==
LOC: BIMLAB 13:26
PROVIDERS: PCP Internal Medicine; Referring Provider Internal Medicine Nephrology; Visit Provider Internal Medicine Nephrology
DX: N18.32 Chronic kidney disease, stage 3b (principal); D63.1 Anemia in chronic kidney disease
CPT/HCPCS: 36415; 80069; 82306; 82570; 83970; 84156; 85027

== ENCOUNTER → 2022-01-25 | Outpatient (CLI) | payer MEDICARE, SELFPAY ==
--- NOTE | 2022-01-25 12:18 | PFT ---
INTRODUCTION: The patient is an 81-year-old male that presents for pulmonary function studies secondary to a diagnosis of dyspnea. Respiratory therapy reported good patient effort. Bronchodilators were used during testing. INTERPRETATION: Forced expiration spirometry demonstrates the presence of a mild large airways obstructive ventilatory defect. There was no significant response to aerosolized bronchodilators. Spirograms are of good quality but do not plateau indicating slow emptying of the lungs. Body plethysmography was performed and revealed a decreased TLC to 3.79 L, 74% of predicted, indicative of a mild restrictive ventilatory impairment. Diffusing capacity by single breath CO is within normal limits. IMPRESSION: Irreversible mild mixed ventilatory defect with preserved diffusing capacity.
== END | disposition home or self-care (01) ==
PROVIDERS: PCP Internal Medicine; Referring Provider Nurse Practitioner Acute Care; Visit Provider Nurse Practitioner Acute Care
DX: R06.00 Dyspnea, unspecified (principal)
CPT/HCPCS: 94060; 94726; 94729

== ENCOUNTER → 2022-02-01 | Outpatient (CLI) | payer MEDICARE, SELFPAY ==
[2022-02-01 12:19] LABS: Absolute Lymphocyte Count 0.62 X10^3/uL (0.83-4.51); Absolute Neutrophil Count 4.1 X10^3/uL (2.0-7.7); Basophil# 0.02 X10^3/uL; Basophil% 0.4 % (0-1); Eosinophil# 0.13 X10^3/uL; Eosinophils% 2.4 % (0-5); Hematocrit 29.5 % (40-54); Hemoglobin 8.9 g/dL (13.0-16.5); Lymphocyte # 0.62 X10^3/ul (0.83-4.51); Lymphocyte % 11.4 % (19-41); Mean Corp Hgb Conc 30.2 g/dL (32-36); Mean Corpuscular Hgb 28.1 pg (27.0-32.0); Mean Corpuscular Volume 93.1 fL (80-94); Mean Platelet Vol. 10.3 fl (6.2-12.0); Monocyte# 0.55 X10^3/uL; Monocyte% 10.1 % (0-10); NRBC Flagged by Analyzer 0 % (0-5); Neutrophil # 4.07 X10^3/uL (2.7-7.7); Neutrophil % 74.8 % (47-70); Platelet Count 252 K/mm3 (150-450); RBC Distribution Width CV 14.9 % (11.6-14.6); RBC Distribution Width SD 50.8 fl (35.1-43.9); Red Blood Count 3.17 M/mm3 (4.6-6.2); White Blood Count 5.4 K/mm3 (4.4-11.0)
[2022-02-01 12:43] LABS: D-Dimer Quantitative (DVT/PE) 4.74 FEU/ug/m (0.27-0.49)
[2022-02-01 12:46] LABS: BNP,B-Type NATRIURETIC PEPTIDE 83.9 pg/mL (0-100)
[2022-02-01 13:03] LABS: ALB/GLOB Ratio 0.7 RATIO (0.9-2.4); AST(SGOT) 15 U/L (15-37); Alanine Aminotransfer ALT/SGPT 17 U/L (16-61); Albumin, Serum 3.3 g/dL (3.2-5.0); Alkaline Phosphatase 102 U/L (45-117); Anion Gap 6 (5-15); BUN 19 mg/dL (7-18); BUN/Creat Ratio 12.3 RATIO (10-20); Calcium,Total 8.9 mg/dL (8.5-10.1); Chloride 111 mmol/L (98-107); Creatinine, Serum 1.54 mg/dL (0.70-1.30); EST Glomerular Filtration Rate 46 mL/min (>60); Est Glom Filt Rate - Afr Amer 56 mL/min (>60); Globulin 4.5 g/dL (2.2-4.2); Glucose 127 mg/dL (74-106); Potassium 4.2 mmol/L (3.5-5.1); Protein, Total 7.8 g/dL (6.4-8.2); Sodium Level 141 mmol/L (136-145)
== END | disposition home or self-care (01) ==
LOC: BIMLAB 10:19
PROVIDERS: PCP Internal Medicine; Referring Provider Physician Assistant; Visit Provider Physician Assistant
DX: R06.02 Shortness of breath (principal); M79.89 Other specified soft tissue disorders; R06.00 Dyspnea, unspecified; D64.9 Anemia, unspecified
CPT/HCPCS: 36415; 80053; 83880; 85025; 85379

== ENCOUNTER → 2022-02-01 | Outpatient (CLI) | payer MEDICARE, SELFPAY ==
--- NOTE | 2022-02-01 14:43 | VDLE_ITS ---
Reason For Study: Swelling, Elevated D-Dimer RIGHT LEFT CFV is compressible, spontaneous, phasic, GSV is normal. competent and demonstrates normal CFV is compressible, spontaneous, phasic, augmentation. competent, and demonstrates normal Procedure augmentation. This is a venous duplex using B-mode, color FV is compressible, spontaneous, phasic, flow and spectral Doppler. competent and demonstrates normal Exam performed in department. augmentation. A preliminary report was called and/or faxed T/P Trunk is compressible. to Lisa [facility]. PTV is compressible. LT PerV is compressible. Lt PopV is partially compressible with bright intraluminal echoes consistent with chronic DVT. VL/Venous Duplex US, Unilateral Interpretation Summary Chronic deep vein thrombosis is noted in the left popliteal vein. Ordering Physician: Lisa Barragan Referring Physician: Angelique Grossman Performed By: Tania Colindres, MICHELLE, RVT
== END | disposition home or self-care (01) ==
LOC: CVS 14:42
PROVIDERS: PCP Internal Medicine; Referring Provider Physician Assistant; Visit Provider Physician Assistant
DX: R60.0 Localized edema (principal); R79.89 Other specified abnormal findings of blood chemistry; D64.9 Anemia, unspecified; M79.89 Other specified soft tissue disorders; R06.00 Dyspnea, unspecified
CPT/HCPCS: 36415; 80053; 83880; 85025; 85379; 93971

== ENCOUNTER → 2022-02-22 | Outpatient (CLI) | payer MEDICARE, SELFPAY ==
--- NOTE | 2022-02-22 10:45 | RAD_ITS ---
STUDY: X-RAY CHEST REASON FOR EXAM: Male, 81 years old. Dyspnea on exertion. Worsening shortness of breath over past year history of asthma. TECHNIQUE: PA and lateral views of the chest. COMPARISON: 06/05/2020. FINDINGS: The lungs are mildly hyperexpanded. There is chronic changes without acute infiltrate or mass. There is no demonstrated pleural abnormality. Normal size heart. Normal mediastinum and mamadou. Normal visualized pulmonary arteries. Normal visualized aortic arch and descending thoracic aorta. Gliosis and degenerative changes of the thoracic spine. There is degenerative osteoarthritis of the bilateral shoulders. There is no demonstrated abnormality of the visualized soft tissue structures of the upper abdomen. RAD/Chest PA and Lateral IMPRESSION: No acute cardiopulmonary disease or interval change. Electronically Signed: Sahil Griffin DO at 21:36 EDT ,
== END | disposition home or self-care (01) ==
LOC: RAD 10:39
PROVIDERS: PCP Internal Medicine; Referring Provider Internal Medicine Cardiovascular Disease; Visit Provider Internal Medicine Cardiovascular Disease
DX: R06.00 Dyspnea, unspecified (principal)
CPT/HCPCS: 71046

== ENCOUNTER 2022-02-25 09:56 | Day surgery (SDC) | payer MEDICARE, SELFPAY ==
[2022-02-22 11:38] LABS: Absolute Lymphocyte Count 0.72 X10^3/uL (0.83-4.51); Absolute Neutrophil Count 5.1 X10^3/uL (2.0-7.7); Basophil# 0.02 X10^3/uL; Basophil% 0.3 % (0-1); Eosinophil# 0.16 X10^3/uL; Eosinophils% 2.4 % (0-5); Hematocrit 32.4 % (40-54); Hemoglobin 10.1 g/dL (13.0-16.5); Lymphocyte # 0.72 X10^3/ul (0.83-4.51); Lymphocyte % 10.7 % (19-41); Mean Corp Hgb Conc 31.2 g/dL (32-36); Mean Corpuscular Hgb 28.5 pg (27.0-32.0); Mean Corpuscular Volume 91.5 fL (80-94); Mean Platelet Vol. 10.1 fl (6.2-12.0); Monocyte# 0.68 X10^3/uL; Monocyte% 10.1 % (0-10); NRBC Flagged by Analyzer 0 % (0-5); Neutrophil # 5.14 X10^3/uL (2.7-7.7); Neutrophil % 76.1 % (47-70); Platelet Count 236 K/mm3 (150-450); RBC Distribution Width CV 14.7 % (11.6-14.6); RBC Distribution Width SD 49.4 fl (35.1-43.9); Red Blood Count 3.54 M/mm3 (4.6-6.2); White Blood Count 6.8 K/mm3 (4.4-11.0)
[2022-02-22 11:56] LABS: Anion Gap 8 (5-15); BUN 21 mg/dL (7-18); BUN/Creat Ratio 13.6 RATIO (10-20); Calcium,Total 9.1 mg/dL (8.5-10.1); Chloride 109 mmol/L (98-107); Creatinine, Serum 1.54 mg/dL (0.70-1.30); EST Glomerular Filtration Rate 46 mL/min (>60); Est Glom Filt Rate - Afr Amer 56 mL/min (>60); Glucose 107 mg/dL (74-106); Potassium 4.2 mmol/L (3.5-5.1); Sodium Level 140 mmol/L (136-145)
[2022-02-25 10:06] VITALS: BMI 31.9
--- NOTE | 2022-02-25 11:57 | CL.D_ITS ---
Patient Name: CARISSA VANG Study Date: 02/25/2022 Performing: Ke Garcia MD Ht: 65 inches 165.1 cm : 1940 Wt: 192 lbs 87.09 kg Age: 81 Gender: male BSA: 1.94 PROCEDURE(S) PERFORMED DC02-(23982)C/COR CLINICAL PROFILE AND INDICATIONS Indications: Valvular Disease Heart Failure: None Stress/Imaging Stress/Image Study Performed: No CAD Presentations: Other: sob CONCLUSIONS Aortic Valve Stenosis- Moderate to severe aortic valve stenosis RECOMMENDATIONS Repeat echocardiogram and consider AVR if the mean gradient is close to 40 mmHg DESCRIPTION OF PROCEDURE The patient arrived to the procedure lab. The risks and benefits of the procedure as well as a full description of our services here and current unavailability of surgical backup were fully explained to the patient and/or their significant other prior to the catheterization. The Timeout was completed, verifying the correct patient and procedure. The patient's procedural site was prepped and draped in the usual fashion. Local anesthetic was given subcutaneously to right radial region with Lidocaine 2%. Using a modified Seldinger technique, arterial access was obtained via the right radial artery, a 6Fr sheath was inserted. Left Coronary Artery selective angiography was performed in multiple views using a 5 Fr. 4.0 Brooks catheter. Right Coronary Artery selective angiography was then performed in multiple views using a 5 Fr. JR 5 catheter. LV to AO pullback pressures were then recorded.The arterial sheath was pulled and a TR Band was applied for hemostasis CORONARY ANGIOGRAPHY DOMINANCE: Right Dominant LEFT HEART ASSESSMENT Left Ventricular Ejection Fraction: by LV Gram 60 % Normal LV wall motion Normal Left Ventricular systolic function LEFT MAIN: Mild luminal irregularities LEFT ANTERIOR DESCENDING ARTERY: Mild luminal irregularities less than 30% CIRCUMFLEX ARTERY: Mild luminal irregularities RIGHT CORONARY ARTERY: Mild luminal irregularities VALVE FINDINGS: Aortic Valve Calcification - moderate Aortic Valve Stenosis - moderate COMPLICATIONS No Complications PROCEDURE MEDICATIONS Versed 1 mg IV Fentanyl 50 mcg IV Oxygen: 2 L/min via nasal cannula Heparin given IA 02/25/2022 11:34:30 Verapamil 2.5mg, 3000 units of Heparin given IA 02/25/2022 11:34:30 SUMMARY OF HEMODYNAMIC DATA Time AIR REST ECG 10:27:18 Art 168/74 (109) 11:16:18 AO 144/76 (106) SA 11:37:36 LV 180/13, 29 11:45:59 LV 180/15, 26 11:46:07 LVp 177/13, 24 11:46:23 AOp 146/75 (106) 11:46:30 Signed By Ke Garcia MD On 02/25/2022 11:56:56 Ke Garcia MD
--- NOTE | 2022-02-25 12:09 | ECHOD_ITS ---
Reason For Study: DYSPNEA/SOB Procedure This was a 2D Doppler, Color Flow transthoracic echocardiogram. The study was technically difficult. 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 Left Ventricle Normal LV size. Left ventricular systolic function is normal. The estimated ejection fraction is 65 %. No regional wall motion abnormalities noted. Right Ventricle Normal RV size. Normal systolic function. Atria The left atrium is moderately enlarged. Normal right atrium. Mitral Valve There is moderate to severe mitral annular calcification. Tricuspid Valve Normal tricuspid valve. Mild tricuspid valve insufficiency. Pulmonary artery systolic pressure is 40 mmHg. Aortic Valve Trisinus/trileaflet aortic valve. Mild focal aortic valve calcification. Peak aortic valve gradient 49 mmHg. Mean aortic valve gradient 26 mmHg. Moderate aortic stenosis. Pulmonic Valve Normal pulmonic valve. Great Vessels Normal aortic root. The pulmonary artery is normal size. Normal inferior vena cava. Pericardium/Pleural No pericardial effusion. MMode/2D Measurements & Calculations LVIDd: 4.9 cm IVSd: 1.3 cm LVOT diam: 2.0 cm LVIDs: 3.5 cm LVPWd: 1.1 cm LVOT area: 3.0 cm2 RVDd: 3.7 cm FS: 29.4 % Ao root diam: 3.3 cm LAV(MOD-bp): 95.8 ml EDV(MOD-sp4): 96.0 ml LAV(MOD-bp) Indexed: 49.3 ml/m2 ESV(MOD-sp4): 35.8 ml LAV(MOD-sp2): 92.0 ml EF(MOD-sp4): 62.7 % LAV(MOD-sp4): 90.5 ml EDV(MOD-sp2): 81.1 ml SV(MOD-sp4): 60.2 ml SV(MOD-sp2): 54.6 ml ESV(MOD-sp2): 26.5 ml EF(MOD-sp2): 67.3 % Aortic Valve Planimetry: 1.0 cm2 LA A4 area: 24.7 cm2 LA dimension(2D): 5.1 cm RA A4 area: 16.6 cm2 Time Measurements MV dec time: 0.26 sec Doppler Measurements & Calculations MV E max noah: 177.4 cm/sec Lat Peak E' Noah: 5.4 cm/sec Med Peak E' Noah: 5.3 cm/sec MV A max noah: 170.5 cm/sec E/E' lat: 32.7 E/E' med: 33.2 MV E/A: 1.0 MV V2 max: 207.2 cm/sec MV P1/2t max noah: 204.3 cm/sec Ao V2 max: 350.6 cm/sec MV max P.2 mmHg MV P1/2t: 77.0 msec Ao max P.0 mmHg MV V2 mean: 123.6 cm/sec MV dec slope: 776.8 cm/sec2 Ao V2 mean: 242.4 cm/sec MV mean P.0 mmHg Ao mean P.2 mmHg MV V2 VTI: 57.8 cm MVA(P1/2t): 2.9 cm2 Ao V2 VTI: 80.8 cm MVA(VTI): 1.5 cm2 FABY(I,D): 1.1 cm2 FABY(V,D): 0.87 cm2 LV V1 max: 99.9 cm/sec SV(LVOT): 85.2 ml PA V2 max: 217.3 cm/sec LV V1 max P.0 mmHg LV V1 mean P.6 mmHg LV V1 mean: 76.6 cm/sec LV V1 VTI: 28.0 cm TR max noah: 296.0 cm/sec TR max P.0 mmHg ECHO/Echo Complete Interpretation Summary Normal LV size. Left ventricular systolic function is normal. The estimated ejection fraction is 65 %. There is moderate to severe mitral annular calcification. Mild focal aortic valve calcification. Mean aortic valve gradient 26 mmHg. Moderate aortic stenosis. Ordering Physician: Ke Garcia Referring Physician: Angelique Grossman Performed By: Alondra Reynolds, MICHELLE, RVT
== END 2022-02-25 16:00 | disposition home or self-care (01) ==
PROVIDERS: PCP Internal Medicine; Referring Provider Internal Medicine Cardiovascular Disease; Visit Provider Internal Medicine Cardiovascular Disease
DX: I35.0 Nonrheumatic aortic (valve) stenosis (principal); I25.10 Atherosclerotic heart disease of native coronary artery without angina pectoris; R06.02 Shortness of breath; E03.9 Hypothyroidism, unspecified; I10 Essential (primary) hypertension; D50.0 Iron deficiency anemia secondary to blood loss (chronic); J45.909 Unspecified asthma, uncomplicated; Z79.899 Other long term (current) drug therapy; Z79.82 Long term (current) use of aspirin; Z79.01 Long term (current) use of anticoagulants; Z86.711 Personal history of pulmonary embolism
CPT/HCPCS: 36415; 80048; 85025; 93306; 93454; 99152; 99153; J7030; Q9957; Q9967; A4216; C1769; C1894

== ENCOUNTER 2022-04-16 10:45 | Outpatient (RCR) | payer MEDICARE, SELFPAY ==
[2022-03-19 13:32] VITALS: BP 115/70; PULSE 103; TEMP 35.7; BMI 31.6
--- NOTE | 2022-03-19 14:32 | PCM.WC.HP ---
History of Present Illness Date of Service: 03/19/22 Chief Complaint: Traumatic wound of the left posterior calf History of Wound: This is an 81-year-old male who presents with a traumatic wound on the left posterior calf. He recently began driving a new vehicle, and during entering and exiting the vehicle he was scraping his left posterior calf against the rocker panel. After this had been ongoing for some time, the patient noticed some bleeding from the site, which made him aware of a wound which have developed. He was seen at an outpatient clinic, where doxycycline and Augmentin were prescribed on March 11, 2022, for total of 10 days, and which are now nearly completed. The wound has been present, in the patient's estimation, for approximately 3 weeks. Patient has multiple pre-existing medical problems, which are listed below. He has a history of deep vein thrombosis in his lower extremities. The patient underwent laboratory testing on February 22, 2022, with results as follows: Glucose 107, BUN 21, creatinine 1.54, calcium 9.1, sodium 140, potassium 4.2, chloride 109, white blood count 6.8, hemoglobin 10.1, hematocrit 32.4, platelets 236. He underwent cardiac catheterization on February 25, 2022, the results of which revealed a left ventricular ejection fraction of 60%, normal left ventricular wall motion, normal left ventricular systolic function, mild luminal irregularities of the left main, mild luminal irregularities of the left anterior descending with less than 30% stenosis, mild luminal irregularities of the circumflex artery, and mild luminal irregularities of the right coronary artery. Moderate aortic valve calcification and mild aortic valve stenosis were noted. A venous Doppler study performed on 02/01/2022 revealed chronic venous changes in the left popliteal vein. A noninvasive lower extremity arterial study performed in 2016 revealed no evidence of significant arterial occlusive disease. 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, right Diverticulosis Diverticulosis Essential (primary) hypertension Gout Gout Hay fever History of deep vein thrombosis of lower extremity HLD (hyperlipidemia) Hypothyroidism Iron deficiency anemia due to chronic blood loss Left ventricular diastolic dysfunction Leg wound, left Macular degeneration Nonrheumatic aortic (valve) stenosis Osteoarthritis Pleural plaque Pulmonary nodule Right knee DJD Secondary pulmonary arterial hypertension Skin cancer Traumatic open wound of right lower leg with infection Venous ulcer with fat layer exposed Home Medications nitroglycerin 0.4 mg sublingual tablet 0.4 mg sublingual PRN PRN CHEST PAIN 05/01/18 [History Last Taken Unknown] acetaminophen 500 mg tablet 1,000 mg PO BID PRN PRN Pain 12/04/18 [History Last Taken 12/03/18] epinephrine 0.3 mg/0.3 mL injection, auto-injector 0.3 mg IJ PRN PRN Anaphylaxis 12/04/18 [History Last Taken Unknown] multivitamin 1 tab PO QAM 04/19/19 [History Last Taken Unknown] polysaccharide iron complex 150 mg iron capsule 150 mg PO DAILY 01/25/21 [History Last Taken Unknown] febuxostat 40 mg tablet 40 mg PO DAILY 02/28/21 [History Last Taken Unknown] albuterol sulfate 2.5 mg/3 mL (0.083 %) solution for nebulization 2.5 mg (3 mL) inhalation Q6H #180 mL 05/04/21 [Rx Last Taken Unknown] fluticasone propionate 230 mcg-salmeterol 21 mcg/actuation HFA inhaler 2 puff inhalation BID #1 device 07/23/21 [Rx Last Taken Unknown] tiotropium bromide 2.5 mcg/actuation mist for inhalation (Spiriva Respimat) 2 puff inhalation QDAY #1 ea 07/23/21 [Rx Last Taken Unknown] albuterol sulfate 90 mcg/actuation aerosol inhaler 2 puff inhalation Q4H PRN PRN Sob &/Or Wheezing #1 ea 08/03/21 [Rx Last Taken Unknown] levothyroxine 75 mcg tablet 75 mcg PO DAILY #90 tabs 08/08/21 [Rx Last Taken 02/25/22] chlorthalidone 25 mg tablet 25 mg PO DAILY #90 tabs 08/13/21 [Rx Last Taken Unknown] sertraline 100 mg tablet 100 mg PO DAILY #30 tabs 08/23/21 [Rx Last Taken Unknown] famotidine 40 mg tablet 40 mg PO DAILY #30 tabs 12/31/21 [Rx Last Taken Unknown] aspirin 81 mg tablet,delayed release (Adult Aspirin Regimen) 81 mg PO DAILY start for left heart cath 02/25/22 02/22/22 [History Last Taken 02/25/22] amoxicillin 875 mg-potassium clavulanate 125 mg tablet 1 tab PO BID #10 tabs 02/27/22 [Rx Last Taken Unknown] prednisone 20 mg tablet 60 mg PO QDAY #15 tabs 02/27/22 [Rx Last Taken Unknown] amoxicillin 875 mg-potassium clavulanate 125 mg tablet 1 tab PO Q12H 10 days #20 tabs 03/11/22 [Rx Last Taken Unknown] doxycycline hyclate 100 mg capsule 100 mg PO BID 10 days #20 caps 03/11/22 [Rx Last Taken Unknown] nystatin 100,000 unit/mL oral suspension 5 ml mucous membrane TID #250 mL 03/11/22 [Rx Last Taken Unknown] Allergy/AdvReac Type Severity Reaction Status Date / Time indomethacin [From Indocin] AdvReac Intermediate Itching Verified 02/27/22 11:15 indomethacin sodium AdvReac Intermediate Itching Verified 02/27/22 11:15 [From Indocin] oxycodone HCl [From Percocet] AdvReac Intermediate Itching Verified 02/27/22 11:15 Family History Father Heart disease Colon cancer Sister Diabetes Mother Breast cancer Surgical History H/O hernia repair H/O prostatectomy H/O shoulder surgery H/O total knee replacement History of appendectomy History of appendectomy History of carpal tunnel surgery History of hernia repair History of left heart catheterization (02/25/22) History of prostatectomy History of total knee replacement History of total left hip replacement History of total left hip replacement Social History household members: spouse housing: house Smoking Status: Never smoker second hand exposure: No alcohol intake: current alcohol intake frequency: holidays/special occasions only Alcohol type: beer substance use type: does not use caffeine: Yes Type: coffee Number of servings: 2 what type of physical activity do you participate in: walking frequency: daily giancarlo/roman catholic: Evangelical seatbelt use: always do you feel safe at home: Yes Vital Signs Vital Signs Vital Signs: 03/19/22 13:32 Temperature 96.3 F L Temperature Source Temporal Pulse Rate 103 H Blood Pressure 115/70 Blood Pressure Mean 85 Blood Pressure Source Monitor Weight Weight: 190 lb Body Mass Index (BMI) 31.6 Physical Exam Const alert, oriented x3, no apparent distress and well nourished General Appearance: cooperative, comfortable, well kempt and well developed Orientation / Consciousness: awake, oriented to person, oriented to place and oriented to time HEENT normocephalic, head/scalp atraumatic and hearing grossly normal bilaterally Head and Scalp: normal to inspection, normocephalic and atraumatic External Ear: external ears normal Eyes PERRL and EOMs intact bilaterally General Eye: normal appearance of both eyes Pupil: PERRL Resp normal respiratory effort, normal air movement, no retractions and no use of accessory muscles Effort and Inspection: able to speak in complete sentences Extremity General Extremity: Negative for clubbing or cyanosis Skin Wound Narrative: An open wound is noted in the patient's left posterior calf. Dimensions are documented elsewhere. There is no sign of infection or cellulitis. There is slight undermining superiorly and inferiorly. Dimensions are documented elsewhere. There is a moderate amount of bioburden. Neuro oriented x3, CN's II-XII intact bilaterally and moves all extremities Sensorium / Orientation: awake, alert, oriented to person, oriented to place and oriented to time Psych Appearance: grossly normal and appropriate Attitude: calm Activity / Motor Behavior: appropriate eye contact Speech: normal speech Mood & Affect: euthymic mood Thought Process: normal thought process Thought Content: normal thought content Attention / Concentration: attention grossly intact Debridement Note Debridement Note Wound debrided: Left posterior calf Laterality: Left Type of Debridement: Excisional debridement Anesthesia Used: 5% Lidocaine Gel Depth: Down to and including healthy tissue and in the subcutaneous layer Percentage of wound debrided: 100 Instrument Used: 5mm curette Tissue Removed: Bioburden and nonviable tissue Severity: Fat Layer Exposed Amount of bleeding with debridement: Mild Bleeding Controlled with: Compression and gauze Patient tolerated procedure: Patient tolerated procedure well Post-Debridement Measurements and Additional Note: Post-Debridement Measurements/Treatment JERRY - Nurse 1 - General Ulcer Assessment Start: 03/19/22 13:30 Freq: Status: Active Protocol: BRENDA Activity Type Activity Date Activity User E-sign Co-sign Detail Recorded Client Recorded Date Recorded By Document 03/19/22 13:32 DC [id number] 03/19/22 13:45 DC 03/19/22 13:32 WC - Today's Visit Information Type of service Initial Visit Arrival Mode Ambulatory Patient Identification Verified (Name & Yes ) Patient Requires Transmission-Based No Precautions Safety Precautions NA Height and Weight Height 5 ft 5 in Weight 190 lb Weight in Pounds 190.0 lbs Body Mass Index (BMI) 31.6 BMI Classification Obese BSA - [place] 1.94 Vital Signs Temperature (97.8 F-99.1 F) 96.3 F L Temperature Source Temporal Pulse Rate (60-100) 103 H Pulse Location Monitor Blood Pressure (90/60-120/80) 115/70 Blood Pressure Mean 85 Source Monitor History Since Last Visit- (Skip if this is Patient's initial visit) Left Footwear Regular Shoe Right Footwear Regular Shoe Pain Scale: 0-10 Numeric Is Patient Pain Free? Yes WC - Nurse 1 - General Ulcer Measurement Start: 03/19/22 13:30 Freq: Status: Active Protocol: Activity Type Activity Date Activity User E-sign Co-sign Detail Recorded Client Recorded Date Recorded By Document 03/19/22 13:32 DC [id number] 03/19/22 13:45 DC 03/19/22 13:32 Wound Center Nurse 1 #11 L calf -Current Size (cm) - Length 0.6 -Current Size (cm) - Width 0.5 -Current Size (cm) - Depth 0.2 -Total Square Cm 0.30 -Date of Last Picture (Recall this 03/19/22 field) -Photo Taken Yes -Tunneling No -Undermining/Tunneling No -Circular Undermining No -Change in Wound Grade/Stage No -Exudate Amt Medium -Exudate Type Serosanguineous -Wound Margin Distinct, Outline Attached -Granulation Amt None Present (0 %) -Granulation Quality N/A -Slough/Fibrin Yes -Necrosis Amt Medium (34-66%) -Necrotic Tissue Type Adherent Slough -Structure Exposed N/A -Texture (Karin-wound Skin Appearance) No Abnormality, Assessed -Moisture (Karin-wound Skin Appearance) No Abnormality, Assessed -Color (Karin-wound Skin Appearance) No Abnormality, Assessed -Temperature (Karin-wound Skin No Abnormality Appearance) (Pt Warm) -Tenderness on Palpation (Karin-wound No Skin Appearance) -Ulcer Cleansing Soap and Water -Foul Odor after Cleansing No -Anesthetic Used 4% Lidocaine Solution,5% Lidocaine Gel -Wound Comment(s) swelling all around wound Right Calf (cm) 37 Right Ankle (cm) 23 Left Calf (cm) 37 Left Ankle (cm) 23 Assessment/Plan Assessment/Plan (1) Leg wound, left: CODE(S): S81.802A - Unspecified open wound, left lower leg, initial encounter QUALIFIERS: Encounter type: initial encounter Qualified Code(s): S81.802A - Unspecified open wound, left lower leg, initial encounter (2) Nonrheumatic aortic (valve) stenosis: CODE(S): I35.0 - Nonrheumatic aortic (valve) stenosis (3) Secondary pulmonary arterial hypertension: CODE(S): I27.21 - Secondary pulmonary arterial hypertension (4) Essential (primary) hypertension: CODE(S): I10 - Essential (primary) hypertension (5) HLD (hyperlipidemia): CODE(S): E78.5 - Hyperlipidemia, unspecified (6) Left ventricular diastolic dysfunction: CODE(S): I51.9 - Heart disease, unspecified (7) History of pulmonary embolism: CODE(S): Z86.711 - Personal history of pulmonary embolism (8) History of deep vein thrombosis of lower extremity: CODE(S): Z86.718 - Personal history of other venous thrombosis and embolism (9) Obesity: CODE(S): E66.9 - Obesity, unspecified (10) Iron deficiency anemia due to chronic blood loss: CODE(S): D50.0 - Iron deficiency anemia secondary to blood loss (chronic) (11) Anemia of chronic renal failure, stage 3 (moderate): CODE(S): N18.30 - Chronic kidney disease, stage 3 unspecified; D63.1 - Anemia in chronic kidney disease QUALIFIERS: Chronic kidney disease stage 3 subtype: stage 3a (GFR 45-59) Qualified Code(s): N18.31 - Chronic kidney disease, stage 3a; D63.1 - Anemia in chronic kidney disease (12) Chronic asthma: CODE(S): J45.909 - Unspecified asthma, uncomplicated (13) Rheumatoid arthritis: CODE(S): M06.9 - Rheumatoid arthritis, unspecified (14) GERD (gastroesophageal reflux disease): CODE(S): K21.9 - Gastro-esophageal reflux disease without esophagitis (15) Hypothyroidism: CODE(S): E03.9 - Hypothyroidism, unspecified (16) History of prostate cancer: CODE(S): Z85.46 - Personal history of malignant neoplasm of prostate (17) Diverticulosis: CODE(S): K57.90 - Diverticulosis of intestine, part unspecified, without perforation or abscess without bleeding (18) Degenerative joint disease of knee, right: CODE(S): M17.11 - Unilateral primary osteoarthritis, right knee (19) Gout: CODE(S): M10.9 - Gout, unspecified (20) History of hernia repair: CODE(S): Z98.890 - Other specified postprocedural states; Z87.19 - Personal history of other diseases of the digestive system (21) History of prostatectomy: CODE(S): Z90.79 - Acquired absence of other genital organ(s) (22) History of total knee replacement: CODE(S): Z96.659 - Presence of unspecified artificial knee joint (23) History of appendectomy: CODE(S): Z90.49 - Acquired absence of other specified parts of digestive tract (24) History of total left hip replacement: CODE(S): Z96.642 - Presence of left artificial hip joint PLAN: Plan This is an 81-year-old male who presents with a traumatic wound on the left posterior calf. The wound has been present for approximately 3 weeks. We are to implement treatment by means of saline moistened 1/4 inch Nu Gauze, which will be used as packing on a daily basis. We are to recruit the assistance of home health nursing care for daily wound packing, and to assist in the training of the patient's . Nutritional optimization has been recommended. It does not appear as though the patient will require any additional antibiotics at this time, but has been advised to finish his current prescriptions for doxycycline and Augmentin. We are to obtain a noninvasive lower extremity arterial study to assess the patient's arterial circulatory status. Recent laboratory studies have been done, and have been reviewed here in. The patient is to return in 1 week for reassessment. Total time: 55 minutes
[2022-03-22 10:50] VITALS: BP 120/69; PULSE 90; TEMP 35.7; BMI 31.6
[2022-03-26 13:41] VITALS: BP 154/78; PULSE 89; RESP 18; TEMP 36.1; BMI 31.6
--- NOTE | 2022-03-26 13:59 | PCM.WC.HP ---
History of Present Illness Date of Service: 03/26/22 Chief Complaint: Traumatic wound of the left posterior calf History of Wound: This is an 81-year-old male who presented with a traumatic wound on the left posterior calf. He recently began driving a new vehicle, and during entering and exiting the vehicle he was scraping his left posterior calf against the rocker panel. After this had been ongoing for some time, the patient noticed some bleeding from the site, which made him aware of a wound which have developed. He was seen at an outpatient clinic, where doxycycline and Augmentin were prescribed on March 11, 2022, for total of 10 days, and which are now nearly completed. The wound has been present, in the patient's estimation, for approximately 3 weeks. Patient has multiple pre-existing medical problems, which are listed below. He has a history of deep vein thrombosis in his lower extremities. The patient underwent laboratory testing on February 22, 2022, with results as follows: Glucose 107, BUN 21, creatinine 1.54, calcium 9.1, sodium 140, potassium 4.2, chloride 109, white blood count 6.8, hemoglobin 10.1, hematocrit 32.4, platelets 236. He underwent cardiac catheterization on February 25, 2022, the results of which revealed a left ventricular ejection fraction of 60%, normal left ventricular wall motion, normal left ventricular systolic function, mild luminal irregularities of the left main, mild luminal irregularities of the left anterior descending with less than 30% stenosis, mild luminal irregularities of the circumflex artery, and mild luminal irregularities of the right coronary artery. Moderate aortic valve calcification and mild aortic valve stenosis were noted. A venous Doppler study performed on 02/01/2022 revealed chronic venous changes in the left popliteal vein. A noninvasive lower extremity arterial study performed in 2016 revealed no evidence of significant arterial occlusive disease. 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, right Diverticulosis Diverticulosis Essential (primary) hypertension Gout Gout Hay fever History of deep vein thrombosis of lower extremity HLD (hyperlipidemia) Hypothyroidism Iron deficiency anemia due to chronic blood loss Left ventricular diastolic dysfunction Leg wound, left Macular degeneration Nonrheumatic aortic (valve) stenosis Osteoarthritis Pleural plaque Pulmonary nodule Right knee DJD Secondary pulmonary arterial hypertension Skin cancer Traumatic open wound of right lower leg with infection Venous ulcer with fat layer exposed Home Medications nitroglycerin 0.4 mg sublingual tablet 0.4 mg sublingual PRN PRN CHEST PAIN 05/01/18 [History Last Taken Unknown] acetaminophen 500 mg tablet 1,000 mg PO BID PRN PRN Pain 12/04/18 [History Last Taken 12/03/18] epinephrine 0.3 mg/0.3 mL injection, auto-injector 0.3 mg IJ PRN PRN Anaphylaxis 12/04/18 [History Last Taken Unknown] multivitamin 1 tab PO QAM 04/19/19 [History Last Taken Unknown] polysaccharide iron complex 150 mg iron capsule 150 mg PO DAILY 01/25/21 [History Last Taken Unknown] febuxostat 40 mg tablet 40 mg PO DAILY 02/28/21 [History Last Taken Unknown] albuterol sulfate 2.5 mg/3 mL (0.083 %) solution for nebulization 2.5 mg (3 mL) inhalation Q6H #180 mL 05/04/21 [Rx Last Taken Unknown] fluticasone propionate 230 mcg-salmeterol 21 mcg/actuation HFA inhaler 2 puff inhalation BID #1 device 07/23/21 [Rx Last Taken Unknown] tiotropium bromide 2.5 mcg/actuation mist for inhalation (Spiriva Respimat) 2 puff inhalation QDAY #1 ea 07/23/21 [Rx Last Taken Unknown] albuterol sulfate 90 mcg/actuation aerosol inhaler 2 puff inhalation Q4H PRN PRN Sob &/Or Wheezing #1 ea 08/03/21 [Rx Last Taken Unknown] levothyroxine 75 mcg tablet 75 mcg PO DAILY #90 tabs 08/08/21 [Rx Last Taken 02/25/22] chlorthalidone 25 mg tablet 25 mg PO DAILY #90 tabs 08/13/21 [Rx Last Taken Unknown] sertraline 100 mg tablet 100 mg PO DAILY #30 tabs 08/23/21 [Rx Last Taken Unknown] famotidine 40 mg tablet 40 mg PO DAILY #30 tabs 12/31/21 [Rx Last Taken Unknown] amoxicillin 875 mg-potassium clavulanate 125 mg tablet 1 tab PO BID #10 tabs 02/27/22 [Rx Last Taken Unknown] prednisone 20 mg tablet 60 mg PO QDAY #15 tabs 02/27/22 [Rx Last Taken Unknown] nystatin 100,000 unit/mL oral suspension 5 ml mucous membrane TID #250 mL 03/11/22 [Rx Last Taken Unknown] Allergy/AdvReac Type Severity Reaction Status Date / Time indomethacin [From Indocin] AdvReac Intermediate Itching Verified 02/27/22 11:15 indomethacin sodium AdvReac Intermediate Itching Verified 02/27/22 11:15 [From Indocin] oxycodone HCl [From Percocet] AdvReac Intermediate Itching Verified 02/27/22 11:15 Family History Father Heart disease Colon cancer Sister Diabetes Mother Breast cancer Surgical History H/O hernia repair H/O prostatectomy H/O shoulder surgery H/O total knee replacement History of appendectomy History of appendectomy History of carpal tunnel surgery History of hernia repair History of left heart catheterization (02/25/22) History of prostatectomy History of total knee replacement History of total left hip replacement History of total left hip replacement Social History household members: spouse housing: house Smoking Status: Never smoker second hand exposure: No alcohol intake: current alcohol intake frequency: holidays/special occasions only Alcohol type: beer substance use type: does not use caffeine: Yes Type: coffee Number of servings: 2 what type of physical activity do you participate in: walking frequency: daily giancarlo/protestant: Sabianist seatbelt use: always do you feel safe at home: Yes Vital Signs Vital Signs Vital Signs: 03/26/22 13:41 Temperature 97 F L Temperature Source Temporal Pulse Rate 89 Respiratory Rate 18 Blood Pressure 154/78 H Blood Pressure Mean 103 Blood Pressure Source Monitor Blood Pressure Position Sitting Blood Pressure Location Left Arm Oxygen Delivery Method Room Air Weight Weight: 190 lb Body Mass Index (BMI) 31.6 Physical Exam Const alert, oriented x3, no apparent distress and well nourished General Appearance: cooperative, comfortable, well kempt and well developed Orientation / Consciousness: awake, oriented to person, oriented to place and oriented to time HEENT normocephalic, head/scalp atraumatic and hearing grossly normal bilaterally Head and Scalp: normal to inspection, normocephalic and atraumatic External Ear: external ears normal Eyes PERRL and EOMs intact bilaterally General Eye: normal appearance of both eyes Pupil: PERRL Resp normal respiratory effort, normal air movement, no retractions and no use of accessory muscles Effort and Inspection: able to speak in complete sentences Extremity General Extremity: Negative for clubbing or cyanosis Skin Wound Narrative: An open wound is noted in the patient's left posterior calf. Dimensions are documented elsewhere. There is no sign of infection or cellulitis. Dimensions are documented elsewhere. There is little change from the week prior. There is a moderate amount of bioburden. Neuro oriented x3, CN's II-XII intact bilaterally and moves all extremities Sensorium / Orientation: awake, alert, oriented to person, oriented to place and oriented to time Psych Appearance: grossly normal and appropriate Attitude: calm Activity / Motor Behavior: appropriate eye contact Speech: normal speech Mood & Affect: euthymic mood Thought Process: normal thought process Thought Content: normal thought content Attention / Concentration: attention grossly intact Debridement Note Debridement Note Wound debrided: Left posterior calf Laterality: Left Type of Debridement: Excisional debridement Anesthesia Used: 5% Lidocaine Gel Depth: Down to and including healthy tissue and in the subcutaneous layer Percentage of wound debrided: 100 Instrument Used: 3mm curette Tissue Removed: Bioburden and nonviable tissue Severity: Fat Layer Exposed Amount of bleeding with debridement: Mild Bleeding Controlled with: Compression and gauze Patient tolerated procedure: Patient tolerated procedure well Post-Debridement Measurements and Additional Note: Post-Debridement Measurements/Treatment - Nurse 1 - General Ulcer Assessment Start: 03/19/22 13:30 Freq: Status: Active Protocol: BRENDA Activity Type Activity Date Activity User E-sign Co-sign Detail Recorded Client Recorded Date Recorded By Document 03/19/22 13:32 [place] [id number] 03/19/22 13:45 [place] Document 03/22/22 10:50 [place] [id number] 03/22/22 10:52 [place] Document 03/26/22 13:41 [facility] [id number] 03/26/22 13:43 [facility] 03/19/22 03/22/22 03/26/22 13:32 10:50 13:41 - Today's Visit Information Type of service Initial Visit Follow-up Visit Follow-up Visit (Physician/BAKELITE MOLDER (Physician/BAKELITE MOLDER ) ) Arrival Mode Ambulatory Ambulatory Ambulatory Transfer Assistance None Patient Identification Verified (Name & Yes No Yes ) Patient Requires Transmission-Based No No No Precautions Safety Precautions NA NA Height and Weight Height 5 ft 5 in Weight 190 lb Weight in Pounds 190.0 lbs Body Mass Index (BMI) 31.6 31.6 31.6 BMI Classification Obese Obese Obese BSA - [place] 1.94 Vital Signs Temperature (97.8 F-99.1 F) 96.3 F L 96.3 F L 97 F L Temperature Source Temporal Temporal Temporal Pulse Rate (60-100) 103 H 90 89 Pulse Location Monitor Monitor Monitor Respiratory Rate (12-18) 18 Respiratory rate source Observation Oxygen Delivery Method Room Air Blood Pressure (90/60-120/80) 115/70 120/69 154/78 H Blood Pressure Mean 85 86 103 Source Monitor Monitor Monitor Position Sitting Blood Pressure Location Left Arm History Since Last Visit- (Skip if this is Patient's initial visit) Have you changed medications since your No No last visit? Any new allergies or adverse reactions No No Had a fall/change in ADL's that may No No increase risk of falls Signs or symptoms of abuse and/or No No neglect since last visit Have you been in the hospital since your No No last visit? Has dressing in place as prescribed Yes Yes Has compression in place as prescribed N/A N/A Has offloadiing in place as prescribed N/A N/A Experienced any changes in pain level or No No management Left Footwear Regular Shoe Regular Shoe Regular Shoe Right Footwear Regular Shoe Regular Shoe Regular Shoe Pain Scale: 0-10 Numeric Is Patient Pain Free? Yes Yes Yes - Nurse 1 - General Ulcer Measurement Start: 03/19/22 13:30 Freq: Status: Active Protocol: Activity Type Activity Date Activity User E-sign Co-sign Detail Recorded Client Recorded Date Recorded By Document 03/19/22 13:32 [place] [id number] 03/19/22 13:45 [place] Document 03/26/22 13:41 [facility] [id number] 03/26/22 13:43 [facility] 03/19/22 03/26/22 13:32 13:41 Wound Center Nurse 1 #11 L calf -Combined with other wound No -Current Size (cm) - Length 0.6 0.8 -Current Size (cm) - Width 0.5 0.5 -Current Size (cm) - Depth 0.2 0.3 -Total Square Cm 0.30 0.40 -Date of Last Picture (Recall this 03/19/22 field) -Photo Taken Yes No -Epithelialization Small 1-33% -Tunneling No No -Undermining/Tunneling No No -Circular Undermining No No -Change in Wound Grade/Stage No -Exudate Amt Medium Small -Exudate Type Serosanguineous Serosanguineous -Wound Margin Distinct, Distinct, Outline Outline Attached Attached -Granulation Amt None Present (0 None Present (0 %) %) -Granulation Quality N/A -Slough/Fibrin Yes Yes -Necrosis Amt Medium (34-66%) Large (67-100%) -Necrotic Tissue Type Adherent Slough Adherent Slough -Structure Exposed N/A -Texture (Karin-wound Skin Appearance) No Abnormality, Assessed, Assessed Scarring -Moisture (Karin-wound Skin Appearance) No Abnormality, Assessed,Dry/ Assessed Scaly -Color (Karin-wound Skin Appearance) No Abnormality, Assessed Assessed -Temperature (Karin-wound Skin No Abnormality No Abnormality Appearance) (Pt Warm) (Pt Warm) -Tenderness on Palpation (Karin-wound No No Skin Appearance) -Ulcer Cleansing Soap and Water Rinsed/ Irrigated with Saline -Foul Odor after Cleansing No No -Anesthetic Used 4% Lidocaine 5% Lidocaine Solution,5% Gel Lidocaine Gel -Wound Comment(s) swelling all around wound Right Calf (cm) 37 Right Ankle (cm) 23 Left Calf (cm) 37 Left Ankle (cm) 23 WC - Nurse 2 - General Ulcer CM Notes Start: 03/19/22 13:30 Freq: Status: Active Protocol: Activity Type Activity Date Activity User E-sign Co-sign Detail Recorded Client Recorded Date Recorded By Document 03/19/22 14:41 PL [id number] 03/19/22 14:42 PL 03/19/22 14:41 Wound Center Nurse 2 10. RLE inferior -Procedure Performed No #11 L calf -Time 13:57 -Correct Patient Yes -Correct Side, Site, Position Yes -Correct Procedure Yes -Procedure Performed Yes -Type of Procedure Debridement -Clinical Debridement Subcutaneous -Tissue Removed Subcutaneous -Post Debridement (cm) - Length 0.6 -Post Debridement (cm) - Width 0.5 -Post Debridement (cm) - Depth 0.2 -Total Square (Post) (cm) 0.30 -Area of Debridement (cm) - Length 0.6 -Area of Debridement (cm) - Width 0.5 -Total Square (Area) (cm) 0.30 -Tunneling No -Undermining/Tunneling No -Circular Undermining No -Wound/Ulcer Outcome Not Healed -Ulcer Cleansing Rinsed/ Irrigated with Saline -Foul Odor after Cleansing No -Bioengineered Tissue No -Bleeding Controlled with Pressure -Treatment Response Procedure Tolerated Well -Debridement - Subq, 1st 20sq cm Yes Pain Scale: 0-10 Numeric Is Patient Pain Free? Yes - Nurse 3 - General Ulcer D/C NN Start: 03/19/22 13:30 Freq: Status: Active Protocol: Activity Type Activity Date Activity User E-sign Co-sign Detail Recorded Client Recorded Date Recorded By Document 03/22/22 10:52 CARLY [id number] 03/22/22 10:53 CARLY 03/22/22 10:52 Wound Care Nurse 3 #11 L calf -Ulcer Cleansing Rinsed/ Irrigated with Saline -Foul Odor after Cleansing No -Negative Pressure Wound Therapy N/A -Primary Dressing Applied Mepilex Border, Nugauze, Plain Iodoform -Mepilex Border 1 -Nugauze, Plain Iodoform 1/4 1 Pain Scale: 0-10 Numeric Is Patient Pain Free? Yes - Visit Discharge Discharge Condition Stable Ambulatory Status Ambulatory Transportation Private Auto Accompanied by Medication Reconcilliation completed & Yes provided to patient/care provider Clinical Summary of Care Provided Yes Assessment/Plan Assessment/Plan (1) Leg wound, left: CODE(S): S81.802A - Unspecified open wound, left lower leg, initial encounter QUALIFIERS: Encounter type: subsequent encounter Qualified Code(s): S81.802D - Unspecified open wound, left lower leg, subsequent encounter (2) Nonrheumatic aortic (valve) stenosis: CODE(S): I35.0 - Nonrheumatic aortic (valve) stenosis (3) Secondary pulmonary arterial hypertension: CODE(S): I27.21 - Secondary pulmonary arterial hypertension (4) Essential (primary) hypertension: CODE(S): I10 - Essential (primary) hypertension (5) HLD (hyperlipidemia): CODE(S): E78.5 - Hyperlipidemia, unspecified (6) Left ventricular diastolic dysfunction: CODE(S): I51.9 - Heart disease, unspecified (7) History of pulmonary embolism: CODE(S): Z86.711 - Personal history of pulmonary embolism (8) History of deep vein thrombosis of lower extremity: CODE(S): Z86.718 - Personal history of other venous thrombosis and embolism (9) Obesity: CODE(S): E66.9 - Obesity, unspecified (10) Iron deficiency anemia due to chronic blood loss: CODE(S): D50.0 - Iron deficiency anemia secondary to blood loss (chronic) (11) Anemia of chronic renal failure, stage 3 (moderate): CODE(S): N18.30 - Chronic kidney disease, stage 3 unspecified; D63.1 - Anemia in chronic kidney disease QUALIFIERS: Chronic kidney disease stage 3 subtype: stage 3a (GFR 45-59) Qualified Code(s): N18.31 - Chronic kidney disease, stage 3a; D63.1 - Anemia in chronic kidney disease (12) Chronic asthma: CODE(S): J45.909 - Unspecified asthma, uncomplicated (13) Rheumatoid arthritis: CODE(S): M06.9 - Rheumatoid arthritis, unspecified (14) GERD (gastroesophageal reflux disease): CODE(S): K21.9 - Gastro-esophageal reflux disease without esophagitis (15) Hypothyroidism: CODE(S): E03.9 - Hypothyroidism, unspecified (16) History of prostate cancer: CODE(S): Z85.46 - Personal history of malignant neoplasm of prostate (17) Diverticulosis: CODE(S): K57.90 - Diverticulosis of intestine, part unspecified, without perforation or abscess without bleeding (18) Degenerative joint disease of knee, right: CODE(S): M17.11 - Unilateral primary osteoarthritis, right knee (19) Gout: CODE(S): M10.9 - Gout, unspecified (20) History of hernia repair: CODE(S): Z98.890 - Other specified postprocedural states; Z87.19 - Personal history of other diseases of the digestive system (21) History of prostatectomy: CODE(S): Z90.79 - Acquired absence of other genital organ(s) (22) History of total knee replacement: CODE(S): Z96.659 - Presence of unspecified artificial knee joint (23) History of appendectomy: CODE(S): Z90.49 - Acquired absence of other specified parts of digestive tract (24) History of total left hip replacement: CODE(S): Z96.642 - Presence of left artificial hip joint PLAN: Plan This is an 81-year-old male who presented with a traumatic wound on the left posterior calf. The wound had been present for approximately 3 weeks. We are to continue treatment by means of saline moistened 1/4 inch Nu Gauze, which will be used as packing on a daily basis. We are to recruit the assistance of home health nursing care for daily wound packing, and to assist in the training of the patient's . Nutritional optimization has been recommended. It does not appear as though the patient will require any additional antibiotics at this time, but has been advised to finish his prescriptions for doxycycline and Augmentin. We are to obtain a noninvasive lower extremity arterial study to assess the patient's arterial circulatory status. Recent laboratory studies have been done, and have been reviewed here in. The patient is to return in 1 week for reassessment. Total time: 29 minutes
--- NOTE | 2022-03-27 14:01 | ART_ITS ---
Reason For Study: WOUND Procedure A bilateral lower extremity continuous wave Doppler with analog waveform analysis,segmental pressures,and ankle brachial indexes without exercise. Left Segmental Pressures Left brachial= 129mmHg. Left posterior tibial artery = 222mmHg. Left dorsalis pedis artery = 196mmHg. Left digit = 201 mmHg. The left posterior tibial artery waveforms are triphasic. The left dorsalis pedis waveforms are triphasic. Right Segmental Pressures Right brachial= 127mmHg. Right calf = 176mmHg. Right posterior tibial artery = >254mmHg. Right dorsalis pedis artery = >254mmHg. The right posterior tibial artery waveforms are triphasic. The right dorsalis pedis waveforms are triphasic. Right digit = 154 mmHg. Indices The right resting ankle brachial index is -NC-. The right ankle brachial index by the posterior tibial artery is -NC-. The right ankle brachial index by the dorsalis pedis is -NC-. The right digital-brachial index is 1.19. The left resting ankle brachial index is 1.72. The left ankle brachial index by the posterior tibial artery is 1.72. The left ankle brachial index by the dorsalis pedis is 1.52. The left digital-brachial index is 1.56. VL/Lower Ext Art Exam w/o Exercis Interpretation Summary Triphasic Doppler waveforms are noted at ankle level bilaterally. Pulse-volume recordings appear satisfactory bilaterally. The resting right ankle-brachial index could not be d etermined due to the non-compressibility of the vasculature at ankle level on the right. The resting left ankle-brachial index is supra-normal. The right digital-brachial index is normal. The left dig ital-brachial index is supra-normal. There is evidence of arterial calcification at multiple levels bilaterally. The re is no evidence of significant arterial occlusive disease in the lower extremities bilaterally. Ordering Physician: Oz Cooper Referring Physician: Angelique Grossman Performed By: Alondra Reynolds RVT, RDCS
[2022-04-02 10:09] VITALS: BP 156/90; PULSE 90; TEMP 36.4; BMI 31.6
--- NOTE | 2022-04-02 11:55 | PCM.WC.HP ---
History of Present Illness Date of Service: 04/02/22 Chief Complaint: Traumatic wound of the left posterior calf History of Wound: This is an 81-year-old male who presented with a traumatic wound on the left posterior calf. He recently began driving a new vehicle, and during entering and exiting the vehicle he was scraping his left posterior calf against the rocker panel. After this had been ongoing for some time, the patient noticed some bleeding from the site, which made him aware of a wound which have developed. He was seen at an outpatient clinic, where doxycycline and Augmentin were prescribed on March 11, 2022, for total of 10 days, and which are now nearly completed. The wound has been present, in the patient's estimation, for approximately 3 weeks. Patient has multiple pre-existing medical problems, which are listed below. He has a history of deep vein thrombosis in his lower extremities. The patient underwent laboratory testing on February 22, 2022, with results as follows: Glucose 107, BUN 21, creatinine 1.54, calcium 9.1, sodium 140, potassium 4.2, chloride 109, white blood count 6.8, hemoglobin 10.1, hematocrit 32.4, platelets 236. He underwent cardiac catheterization on February 25, 2022, the results of which revealed a left ventricular ejection fraction of 60%, normal left ventricular wall motion, normal left ventricular systolic function, mild luminal irregularities of the left main, mild luminal irregularities of the left anterior descending with less than 30% stenosis, mild luminal irregularities of the circumflex artery, and mild luminal irregularities of the right coronary artery. Moderate aortic valve calcification and mild aortic valve stenosis were noted. A venous Doppler study performed on 02/01/2022 revealed chronic venous changes in the left popliteal vein. A noninvasive lower extremity arterial study performed in 2016 revealed no evidence of significant arterial occlusive disease. 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, right Diverticulosis Diverticulosis Essential (primary) hypertension Gout Gout Hay fever History of deep vein thrombosis of lower extremity HLD (hyperlipidemia) Hypothyroidism Iron deficiency anemia due to chronic blood loss Left ventricular diastolic dysfunction Leg wound, left Macular degeneration Nonrheumatic aortic (valve) stenosis Osteoarthritis Pleural plaque Pulmonary nodule Right knee DJD Secondary pulmonary arterial hypertension Skin cancer Traumatic open wound of right lower leg with infection Venous ulcer with fat layer exposed Home Medications nitroglycerin 0.4 mg sublingual tablet 0.4 mg sublingual PRN PRN CHEST PAIN 05/01/18 [History Last Taken Unknown] acetaminophen 500 mg tablet 1,000 mg PO BID PRN PRN Pain 12/04/18 [History Last Taken 12/03/18] epinephrine 0.3 mg/0.3 mL injection, auto-injector 0.3 mg IJ PRN PRN Anaphylaxis 12/04/18 [History Last Taken Unknown] multivitamin 1 tab PO QAM 04/19/19 [History Last Taken Unknown] polysaccharide iron complex 150 mg iron capsule 150 mg PO DAILY 01/25/21 [History Last Taken Unknown] febuxostat 40 mg tablet 40 mg PO DAILY 02/28/21 [History Last Taken Unknown] albuterol sulfate 2.5 mg/3 mL (0.083 %) solution for nebulization 2.5 mg (3 mL) inhalation Q6H #180 mL 05/04/21 [Rx Last Taken Unknown] fluticasone propionate 230 mcg-salmeterol 21 mcg/actuation HFA inhaler 2 puff inhalation BID #1 device 07/23/21 [Rx Last Taken Unknown] tiotropium bromide 2.5 mcg/actuation mist for inhalation (Spiriva Respimat) 2 puff inhalation QDAY #1 ea 07/23/21 [Rx Last Taken Unknown] albuterol sulfate 90 mcg/actuation aerosol inhaler 2 puff inhalation Q4H PRN PRN Sob &/Or Wheezing #1 ea 08/03/21 [Rx Last Taken Unknown] levothyroxine 75 mcg tablet 75 mcg PO DAILY #90 tabs 08/08/21 [Rx Last Taken 02/25/22] chlorthalidone 25 mg tablet 25 mg PO DAILY #90 tabs 08/13/21 [Rx Last Taken Unknown] sertraline 100 mg tablet 100 mg PO DAILY #30 tabs 08/23/21 [Rx Last Taken Unknown] famotidine 40 mg tablet 40 mg PO DAILY #30 tabs 12/31/21 [Rx Last Taken Unknown] amoxicillin 875 mg-potassium clavulanate 125 mg tablet 1 tab PO BID #10 tabs 02/27/22 [Rx Last Taken Unknown] prednisone 20 mg tablet 60 mg PO QDAY #15 tabs 02/27/22 [Rx Last Taken Unknown] nystatin 100,000 unit/mL oral suspension 5 ml mucous membrane TID #250 mL 03/11/22 [Rx Last Taken Unknown] Allergy/AdvReac Type Severity Reaction Status Date / Time indomethacin [From Indocin] AdvReac Intermediate Itching Verified 03/27/22 13:12 indomethacin sodium AdvReac Intermediate Itching Verified 03/27/22 13:12 [From Indocin] oxycodone HCl [From Percocet] AdvReac Intermediate Itching Verified 03/27/22 13:12 Family History Father Heart disease Colon cancer Sister Diabetes Mother Breast cancer Surgical History H/O hernia repair H/O prostatectomy H/O shoulder surgery H/O total knee replacement History of appendectomy History of appendectomy History of carpal tunnel surgery History of hernia repair History of left heart catheterization (02/25/22) History of prostatectomy History of total knee replacement History of total left hip replacement History of total left hip replacement Social History household members: spouse housing: house Smoking Status: Never smoker second hand exposure: No alcohol intake: current alcohol intake frequency: holidays/special occasions only Alcohol type: beer substance use type: does not use caffeine: Yes Type: coffee Number of servings: 2 what type of physical activity do you participate in: walking frequency: daily giancarlo/restoration: Episcopal seatbelt use: always do you feel safe at home: Yes Vital Signs Vital Signs Vital Signs: 04/02/22 10:09 Temperature 97.5 F L Temperature Source Temporal Pulse Rate 90 Blood Pressure 156/90 H Blood Pressure Mean 112 Blood Pressure Source Monitor Blood Pressure Position Sitting Blood Pressure Location Right Arm Weight Weight: 190 lb Body Mass Index (BMI) 31.6 Physical Exam Const alert, oriented x3, no apparent distress and well nourished General Appearance: cooperative, comfortable, well kempt and well developed Orientation / Consciousness: awake, oriented to person, oriented to place and oriented to time HEENT normocephalic, head/scalp atraumatic and hearing grossly normal bilaterally Head and Scalp: normal to inspection, normocephalic and atraumatic External Ear: external ears normal Eyes PERRL and EOMs intact bilaterally General Eye: normal appearance of both eyes Pupil: PERRL Resp normal respiratory effort, normal air movement, no retractions and no use of accessory muscles Effort and Inspection: able to speak in complete sentences Extremity General Extremity: Negative for clubbing or cyanosis Skin Wound Narrative: An open wound is noted in the patient's left posterior calf. Dimensions are documented elsewhere. There is no sign of infection or cellulitis. Dimensions are documented elsewhere. There is little change from the week prior. There is a moderate amount of bioburden. As of today, a significant amount of undermining is noted superiorly, extending more than 1 cm. Neuro oriented x3, CN's II-XII intact bilaterally, moves all extremities and no focal motor deficits Sensorium / Orientation: awake, alert, oriented to person, oriented to place and oriented to time Psych Appearance: grossly normal and appropriate Attitude: calm Activity / Motor Behavior: appropriate eye contact Speech: normal speech Mood & Affect: euthymic mood Thought Process: normal thought process Thought Content: normal thought content Attention / Concentration: attention grossly intact Debridement Note Debridement Note Wound debrided: Left posterior calf Laterality: Left Type of Debridement: Excisional debridement Anesthesia Used: 5% Lidocaine Gel Depth: Down to and including healthy tissue and in the subcutaneous layer Percentage of wound debrided: 100 Instrument Used: 3mm curette Tissue Removed: Bioburden and nonviable tissue Severity: Fat Layer Exposed Amount of bleeding with debridement: Mild Bleeding Controlled with: Compression and gauze Patient tolerated procedure: Patient tolerated procedure well Debridement Free Text: Of note, considerable undermining is noted superiorly, extending more than 1 cm. Post-Debridement Measurements and Additional Note: Post-Debridement Measurements/Treatment WC - Nurse 1 - General Ulcer Assessment Start: 03/19/22 13:30 Freq: Status: Active Protocol: BRENDA Activity Type Activity Date Activity User E-sign Co-sign Detail Recorded Client Recorded Date Recorded By Document 03/19/22 13:32 CARLY [id number] 03/19/22 13:45 AK Document 03/22/22 10:50 AK [id number] 03/22/22 10:52 AK Document 03/26/22 13:41 [facility] [id number] 03/26/22 13:43 BM Document 04/02/22 10:09 KR [id number] 04/02/22 10:15 KR 03/19/22 03/22/22 03/26/22 13:32 10:50 13:41 WC - Today's Visit Information Type of service Initial Visit Follow-up Visit Follow-up Visit (Physician/ACCOUNT INSTALLATION SPECIALIST (Physician/ACCOUNT INSTALLATION SPECIALIST ) ) Arrival Mode Ambulatory Ambulatory Ambulatory Transfer Assistance None Patient Identification Verified (Name & Yes No Yes ) Patient Requires Transmission-Based No No No Precautions Safety Precautions NA NA Height and Weight Height 5 ft 5 in Weight 190 lb Weight in Pounds 190.0 lbs Body Mass Index (BMI) 31.6 31.6 31.6 BMI Classification Obese Obese Obese BSA - [place] 1.94 Vital Signs Temperature (97.8 F-99.1 F) 96.3 F L 96.3 F L 97 F L Temperature Source Temporal Temporal Temporal Pulse Rate (60-100) 103 H 90 89 Pulse Location Monitor Monitor Monitor Respiratory Rate (12-18) 18 Respiratory rate source Observation Oxygen Delivery Method Room Air Blood Pressure (90/60-120/80) 115/70 120/69 154/78 H Blood Pressure Mean 85 86 103 Source Monitor Monitor Monitor Position Sitting Blood Pressure Location Left Arm History Since Last Visit- (Skip if this is Patient's initial visit) Have you changed medications since your No No last visit? Any new allergies or adverse reactions No No Had a fall/change in ADL's that may No No increase risk of falls Signs or symptoms of abuse and/or No No neglect since last visit Have you been in the hospital since your No No last visit? Has dressing in place as prescribed Yes Yes Has compression in place as prescribed N/A N/A Has offloadiing in place as prescribed N/A N/A Experienced any changes in pain level or No No management Left Footwear Regular Shoe Regular Shoe Regular Shoe Right Footwear Regular Shoe Regular Shoe Regular Shoe Pain Scale: 0-10 Numeric Is Patient Pain Free? Yes Yes Yes 04/02/22 10:09 WC - Today's Visit Information Type of service Follow-up Visit (Physician/ACCOUNT INSTALLATION SPECIALIST ) Arrival Mode Ambulatory Transfer Assistance Patient Identification Verified (Name & Yes ) Patient Requires Transmission-Based Precautions Safety Precautions Height and Weight Height Weight Weight in Pounds Body Mass Index (BMI) 31.6 BMI Classification Obese BSA - [place] Vital Signs Temperature (97.8 F-99.1 F) 97.5 F L Temperature Source Temporal Pulse Rate (60-100) 90 Pulse Location Monitor Respiratory Rate (12-18) Respiratory rate source Oxygen Delivery Method Blood Pressure (90/60-120/80) 156/90 H Blood Pressure Mean 112 Source Monitor Position Sitting Blood Pressure Location Right Arm History Since Last Visit- (Skip if this is Patient's initial visit) Have you changed medications since your No last visit? Any new allergies or adverse reactions No Had a fall/change in ADL's that may No increase risk of falls Signs or symptoms of abuse and/or No neglect since last visit Have you been in the hospital since your No last visit? Has dressing in place as prescribed Yes Has compression in place as prescribed Yes Has offloadiing in place as prescribed N/A Experienced any changes in pain level or No management Left Footwear Regular Shoe Right Footwear Regular Shoe Pain Scale: 0-10 Numeric Is Patient Pain Free? Yes WC - Nurse 1 - General Ulcer Measurement Start: 03/19/22 13:30 Freq: Status: Active Protocol: Activity Type Activity Date Activity User E-sign Co-sign Detail Recorded Client Recorded Date Recorded By Document 03/19/22 13:32 GA [id number] 03/19/22 13:45 GA Document 03/26/22 13:41 [facility] [id number] 03/26/22 13:43 [facility] Document 04/02/22 10:09 KR [id number] 04/02/22 10:15 KR 03/19/22 03/26/22 04/02/22 13:32 13:41 10:09 Wound Center Nurse 1 #11 L calf -Combined with other wound No -Current Size (cm) - Length 0.6 0.8 0.5 -Current Size (cm) - Width 0.5 0.5 0.5 -Current Size (cm) - Depth 0.2 0.3 0.2 -Total Square Cm 0.30 0.40 0.25 -Date of Last Picture (Recall this 03/19/22 field) -Photo Taken Yes No -Epithelialization Small 1-33% -Tunneling No No -Undermining/Tunneling No No -Circular Undermining No No -Change in Wound Grade/Stage No -Exudate Amt Medium Small Small -Exudate Type Serosanguineous Serosanguineous Serosanguineous -Wound Margin Distinct, Distinct, Distinct, Outline Outline Outline Attached Attached Attached -Granulation Amt None Present (0 None Present (0 Medium (34-66%) %) %) -Granulation Quality N/A [place] -Slough/Fibrin Yes Yes -Necrosis Amt Medium (34-66%) Large (67-100%) Small (1-33%) -Necrotic Tissue Type Adherent Slough Adherent Slough Adherent Slough -Structure Exposed N/A -Texture (Karin-wound Skin Appearance) No Abnormality, Assessed, Assessed, Assessed Scarring Scarring -Moisture (Karin-wound Skin Appearance) No Abnormality, Assessed,Dry/ No Abnormality, Assessed Scaly Assessed -Color (Karin-wound Skin Appearance) No Abnormality, Assessed No Abnormality, Assessed Assessed -Temperature (Karin-wound Skin No Abnormality No Abnormality No Abnormality Appearance) (Pt Warm) (Pt Warm) (Pt Warm) -Tenderness on Palpation (Karin-wound No No No Skin Appearance) -Ulcer Cleansing Soap and Water Rinsed/ Rinsed/ Irrigated with Irrigated with Saline Saline -Foul Odor after Cleansing No No No -Anesthetic Used 4% Lidocaine 5% Lidocaine 5% Lidocaine Solution,5% Gel Gel Lidocaine Gel -Wound Comment(s) swelling all around wound Right Calf (cm) 37 Right Ankle (cm) 23 Left Calf (cm) 37 Left Ankle (cm) 23 WC - Nurse 2 - General Ulcer CM Notes Start: 03/19/22 13:30 Freq: Status: Active Protocol: Activity Type Activity Date Activity User E-sign Co-sign Detail Recorded Client Recorded Date Recorded By Document 03/19/22 14:41 PL [id number] 03/19/22 14:42 PL Document 03/26/22 15:26 PL [id number] 03/26/22 15:27 PL 03/19/22 03/26/22 14:41 15:26 Wound Center Nurse 2 10. RLE inferior -Procedure Performed No #11 L calf -Time 13:57 13:51 -Correct Patient Yes Yes -Correct Side, Site, Position Yes Yes -Correct Procedure Yes Yes -Procedure Performed Yes Yes -Type of Procedure Debridement Debridement -Clinical Debridement Subcutaneous Subcutaneous -Tissue Removed Subcutaneous Subcutaneous -Post Debridement (cm) - Length 0.6 0.8 -Post Debridement (cm) - Width 0.5 0.5 -Post Debridement (cm) - Depth 0.2 0.3 -Total Square (Post) (cm) 0.30 0.40 -Area of Debridement (cm) - Length 0.6 0.8 -Area of Debridement (cm) - Width 0.5 0.5 -Total Square (Area) (cm) 0.30 0.40 -Tunneling No No -Undermining/Tunneling No No -Circular Undermining No No -Wound/Ulcer Outcome Not Healed Not Healed -Ulcer Cleansing Rinsed/ Rinsed/ Irrigated with Irrigated with Saline Saline -Foul Odor after Cleansing No No -Bioengineered Tissue No No -Bleeding Controlled with Pressure Pressure -Treatment Response Procedure Procedure Tolerated Well Tolerated Well -Debridement - Subq, 1st 20sq cm Yes Yes Pain Scale: 0-10 Numeric Is Patient Pain Free? Yes Yes WC - Nurse 3 - General Ulcer D/C NN Start: 03/19/22 13:30 Freq: Status: Active Protocol: Activity Type Activity Date Activity User E-sign Co-sign Detail Recorded Client Recorded Date Recorded By Document 03/22/22 10:52 GA [id number] 03/22/22 10:53 GA Document 03/26/22 14:04 [facility] [id number] 03/26/22 14:05 [facility] Document 04/02/22 10:55 GA [id number] 04/02/22 10:57 GA 03/22/22 03/26/22 04/02/22 10:52 14:04 10:55 Wound Care Nurse 3 #11 L calf -Ulcer Cleansing Rinsed/ Rinsed/ Rinsed/ Irrigated with Irrigated with Irrigated with Saline Saline Saline -Foul Odor after Cleansing No No No -Negative Pressure Wound Therapy N/A N/A -Primary Dressing Applied Mepilex Border, Nugauze, Plain Nugauze, Nugauze, Plain Iodoform Iodoform Iodoform -Primary Dressing Covered/Secured with Dry Gauze, Dry Gauze, Secured with Secured with Tape Tape -Mepilex Border 1 -Nugauze, Iodoform 1/4 1 -Nugauze, Plain Iodoform 1/4 1 1 Left -Lotion applied to leg before No compression wrap -Tubular Bandage Single Layer -Size of Tubigrip Used Size D -Size D ($) 1 Treatment Response Procedure Tolerated Well Pain Scale: 0-10 Numeric Is Patient Pain Free? Yes Yes Yes WC - Visit Discharge Discharge Condition Stable Stable Stable Ambulatory Status Ambulatory Ambulatory Transportation Private Auto Private Auto Accompanied by Medication Reconcilliation completed & Yes Yes provided to patient/care provider Clinical Summary of Care Provided Yes Yes Assessment/Plan Assessment/Plan (1) Leg wound, left: CODE(S): S81.802A - Unspecified open wound, left lower leg, initial encounter QUALIFIERS: Encounter type: subsequent encounter Qualified Code(s): S81.802D - Unspecified open wound, left lower leg, subsequent encounter (2) Nonrheumatic aortic (valve) stenosis: CODE(S): I35.0 - Nonrheumatic aortic (valve) stenosis (3) Secondary pulmonary arterial hypertension: CODE(S): I27.21 - Secondary pulmonary arterial hypertension (4) Essential (primary) hypertension: CODE(S): I10 - Essential (primary) hypertension (5) HLD (hyperlipidemia): CODE(S): E78.5 - Hyperlipidemia, unspecified (6) Left ventricular diastolic dysfunction: CODE(S): I51.9 - Heart disease, unspecified (7) History of pulmonary embolism: CODE(S): Z86.711 - Personal history of pulmonary embolism (8) History of deep vein thrombosis of lower extremity: CODE(S): Z86.718 - Personal history of other venous thrombosis and embolism (9) Obesity: CODE(S): E66.9 - Obesity, unspecified (10) Iron deficiency anemia due to chronic blood loss: CODE(S): D50.0 - Iron deficiency anemia secondary to blood loss (chronic) (11) Anemia of chronic renal failure, stage 3 (moderate): CODE(S): N18.30 - Chronic kidney disease, stage 3 unspecified; D63.1 - Anemia in chronic kidney disease QUALIFIERS: Chronic kidney disease stage 3 subtype: stage 3a (GFR 45-59) Qualified Code(s): N18.31 - Chronic kidney disease, stage 3a; D63.1 - Anemia in chronic kidney disease (12) Chronic asthma: CODE(S): J45.909 - Unspecified asthma, uncomplicated (13) Rheumatoid arthritis: CODE(S): M06.9 - Rheumatoid arthritis, unspecified (14) GERD (gastroesophageal reflux disease): CODE(S): K21.9 - Gastro-esophageal reflux disease without esophagitis (15) Hypothyroidism: CODE(S): E03.9 - Hypothyroidism, unspecified (16) History of prostate cancer: CODE(S): Z85.46 - Personal history of malignant neoplasm of prostate (17) Diverticulosis: CODE(S): K57.90 - Diverticulosis of intestine, part unspecified, without perforation or abscess without bleeding (18) Degenerative joint disease of knee, right: CODE(S): M17.11 - Unilateral primary osteoarthritis, right knee (19) Gout: CODE(S): M10.9 - Gout, unspecified (20) History of hernia repair: CODE(S): Z98.890 - Other specified postprocedural states; Z87.19 - Personal history of other diseases of the digestive system (21) History of prostatectomy: CODE(S): Z90.79 - Acquired absence of other genital organ(s) (22) History of total knee replacement: CODE(S): Z96.659 - Presence of unspecified artificial knee joint (23) History of appendectomy: CODE(S): Z90.49 - Acquired absence of other specified parts of digestive tract (24) History of total left hip replacement: CODE(S): Z96.642 - Presence of left artificial hip joint PLAN: Plan This is an 81-year-old male who presented with a traumatic wound on the left posterior calf. The wound had been present for approximately 3 weeks. We are to continue treatment by means of saline moistened 1/4 inch Nu Gauze, which will be used as packing on a daily basis. We are to recruit the assistance of home health nursing care for daily wound packing, and to assist in the training of the patient's . Nutritional optimization has been recommended. A noninvasive lower extremity arterial study was performed on March 27, 2022, which reveals evidence of arterial calcification at multiple levels bilaterally, but no evidence of significant arterial occlusive disease in the lower extremities bilaterally. Recent laboratory studies have been done, and have been reviewed herein. Given that significant undermining is noted relative to the left posterior calf wound, it is suspected that the patient may warrant surgical unroofing and debridement in the operating room setting. The current morphology of the wound is not amenable to spontaneous healing. Nonetheless, we are to continue with 1/4 inch Nu Gauze packing which will be changed on a daily basis. The patient is to return in 1 week for reassessment. Consideration will be given to surgical unroofing and debridement in the coming weeks, depending on the patient's evolving clinical course. Total time: 28 minutes
[2022-04-09 13:13] VITALS: BP 146/78; PULSE 89; TEMP 36.3; BMI 31.6
--- NOTE | 2022-04-09 13:14 | PCM.WC.HP ---
History of Present Illness Date of Service: 04/09/22 Chief Complaint: Traumatic wound of the left posterior calf History of Wound: This is an 81-year-old male who presented with a traumatic wound on the left posterior calf. He recently began driving a new vehicle, and during entering and exiting the vehicle he was scraping his left posterior calf against the rocker panel. After this had been ongoing for some time, the patient noticed some bleeding from the site, which made him aware of a wound which have developed. He was seen at an outpatient clinic, where doxycycline and Augmentin were prescribed on March 11, 2022, for total of 10 days, and which are now nearly completed. The wound has been present, in the patient's estimation, for approximately 3 weeks. Patient has multiple pre-existing medical problems, which are listed below. He has a history of deep vein thrombosis in his lower extremities. The patient underwent laboratory testing on February 22, 2022, with results as follows: Glucose 107, BUN 21, creatinine 1.54, calcium 9.1, sodium 140, potassium 4.2, chloride 109, white blood count 6.8, hemoglobin 10.1, hematocrit 32.4, platelets 236. He underwent cardiac catheterization on February 25, 2022, the results of which revealed a left ventricular ejection fraction of 60%, normal left ventricular wall motion, normal left ventricular systolic function, mild luminal irregularities of the left main, mild luminal irregularities of the left anterior descending with less than 30% stenosis, mild luminal irregularities of the circumflex artery, and mild luminal irregularities of the right coronary artery. Moderate aortic valve calcification and mild aortic valve stenosis were noted. A venous Doppler study performed on 02/01/2022 revealed chronic venous changes in the left popliteal vein. A noninvasive lower extremity arterial study performed in 2016 revealed no evidence of significant arterial occlusive disease. 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, right Diverticulosis Diverticulosis Essential (primary) hypertension Gout Gout Hay fever History of deep vein thrombosis of lower extremity HLD (hyperlipidemia) Hypothyroidism Iron deficiency anemia due to chronic blood loss Left ventricular diastolic dysfunction Leg wound, left Macular degeneration Nonrheumatic aortic (valve) stenosis Osteoarthritis Pleural plaque Pulmonary nodule Right knee DJD Secondary pulmonary arterial hypertension Skin cancer Traumatic open wound of right lower leg with infection Venous ulcer with fat layer exposed Home Medications nitroglycerin 0.4 mg sublingual tablet 0.4 mg sublingual PRN PRN CHEST PAIN 05/01/18 [History Last Taken Unknown] acetaminophen 500 mg tablet 1,000 mg PO BID PRN PRN Pain 12/04/18 [History Last Taken 12/03/18] epinephrine 0.3 mg/0.3 mL injection, auto-injector 0.3 mg IJ PRN PRN Anaphylaxis 12/04/18 [History Last Taken Unknown] multivitamin 1 tab PO QAM 04/19/19 [History Last Taken Unknown] polysaccharide iron complex 150 mg iron capsule 150 mg PO DAILY 01/25/21 [History Last Taken Unknown] febuxostat 40 mg tablet 40 mg PO DAILY 02/28/21 [History Last Taken Unknown] albuterol sulfate 2.5 mg/3 mL (0.083 %) solution for nebulization 2.5 mg (3 mL) inhalation Q6H #180 mL 05/04/21 [Rx Last Taken Unknown] fluticasone propionate 230 mcg-salmeterol 21 mcg/actuation HFA inhaler 2 puff inhalation BID #1 device 07/23/21 [Rx Last Taken Unknown] tiotropium bromide 2.5 mcg/actuation mist for inhalation (Spiriva Respimat) 2 puff inhalation QDAY #1 ea 07/23/21 [Rx Last Taken Unknown] albuterol sulfate 90 mcg/actuation aerosol inhaler 2 puff inhalation Q4H PRN PRN Sob &/Or Wheezing #1 ea 08/03/21 [Rx Last Taken Unknown] levothyroxine 75 mcg tablet 75 mcg PO DAILY #90 tabs 08/08/21 [Rx Last Taken 02/25/22] chlorthalidone 25 mg tablet 25 mg PO DAILY #90 tabs 08/13/21 [Rx Last Taken Unknown] sertraline 100 mg tablet 100 mg PO DAILY #30 tabs 08/23/21 [Rx Last Taken Unknown] famotidine 40 mg tablet 40 mg PO DAILY #30 tabs 12/31/21 [Rx Last Taken Unknown] amoxicillin 875 mg-potassium clavulanate 125 mg tablet 1 tab PO BID #10 tabs 02/27/22 [Rx Last Taken Unknown] prednisone 20 mg tablet 60 mg PO QDAY #15 tabs 02/27/22 [Rx Last Taken Unknown] nystatin 100,000 unit/mL oral suspension 5 ml mucous membrane TID #250 mL 03/11/22 [Rx Last Taken Unknown] Allergy/AdvReac Type Severity Reaction Status Date / Time indomethacin [From Indocin] AdvReac Intermediate Itching Verified 03/27/22 13:12 indomethacin sodium AdvReac Intermediate Itching Verified 03/27/22 13:12 [From Indocin] oxycodone HCl [From Percocet] AdvReac Intermediate Itching Verified 03/27/22 13:12 Family History Father Heart disease Colon cancer Sister Diabetes Mother Breast cancer Surgical History H/O hernia repair H/O prostatectomy H/O shoulder surgery H/O total knee replacement History of appendectomy History of appendectomy History of carpal tunnel surgery History of hernia repair History of left heart catheterization (02/25/22) History of prostatectomy History of total knee replacement History of total left hip replacement History of total left hip replacement Social History household members: spouse housing: house Smoking Status: Never smoker second hand exposure: No alcohol intake: current alcohol intake frequency: holidays/special occasions only Alcohol type: beer substance use type: does not use caffeine: Yes Type: coffee Number of servings: 2 what type of physical activity do you participate in: walking frequency: daily giancarlo/yarsani: Restoration seatbelt use: always do you feel safe at home: Yes Vital Signs Vital Signs Vital Signs: Weight Weight: 190 lb Body Mass Index (BMI) 31.6 Physical Exam Const alert, oriented x3, no apparent distress and well nourished General Appearance: cooperative, comfortable, well kempt and well developed Orientation / Consciousness: awake, oriented to person, oriented to place and oriented to time HEENT normocephalic, head/scalp atraumatic and hearing grossly normal bilaterally Head and Scalp: normal to inspection, normocephalic and atraumatic External Ear: external ears normal Eyes PERRL and EOMs intact bilaterally General Eye: normal appearance of both eyes Pupil: PERRL Resp normal respiratory effort, normal air movement, no retractions and no use of accessory muscles Effort and Inspection: able to speak in complete sentences Extremity General Extremity: Negative for clubbing or cyanosis Skin Wound Narrative: An open wound is noted in the patient's left posterior calf. Dimensions are documented elsewhere. There is no sign of infection or cellulitis. There is little change from the week prior. There is a moderate amount of bioburden. A significant amount of undermining is noted superiorly, extending more than 1 cm. Neuro oriented x3, CN's II-XII intact bilaterally, moves all extremities and no focal motor deficits Sensorium / Orientation: awake, alert, oriented to person, oriented to place and oriented to time Psych Appearance: grossly normal and appropriate Attitude: calm Activity / Motor Behavior: appropriate eye contact Speech: normal speech Mood & Affect: euthymic mood Thought Process: normal thought process Thought Content: normal thought content Attention / Concentration: attention grossly intact Debridement Note Debridement Note Wound debrided: Left posterior calf Laterality: Left Type of Debridement: Excisional debridement Anesthesia Used: 5% Lidocaine Gel Depth: Down to and including healthy tissue and in the subcutaneous layer Percentage of wound debrided: 100 Instrument Used: 3mm curette Tissue Removed: Bioburden and nonviable tissue Severity: Fat Layer Exposed Amount of bleeding with debridement: Mild Bleeding Controlled with: Compression and gauze Patient tolerated procedure: Patient tolerated procedure well Debridement Free Text: Of note, considerable undermining is noted superiorly, extending more than 1 cm. Post-Debridement Measurements and Additional Note: Post-Debridement Measurements/Treatment WC - Nurse 1 - General Ulcer Assessment Start: 03/19/22 13:30 Freq: Status: Active Protocol: JERRY.DAYO Activity Type Activity Date Activity User E-sign Co-sign Detail Recorded Client Recorded Date Recorded By Document 03/19/22 13:32 [place] [id number] 03/19/22 13:45 [place] Document 03/22/22 10:50 AK [id number] 03/22/22 10:52 AK Document 03/26/22 13:41 [facility] [id number] 03/26/22 13:43 [facility] Document 04/02/22 10:09 KR [id number] 04/02/22 10:15 KR 03/19/22 03/22/22 03/26/22 13:32 10:50 13:41 WC - Today's Visit Information Type of service Initial Visit Follow-up Visit Follow-up Visit (Physician/EXECUTIVE CHAIRMAN (Physician/EXECUTIVE CHAIRMAN ) ) Arrival Mode Ambulatory Ambulatory Ambulatory Transfer Assistance None Patient Identification Verified (Name & Yes No Yes ) Patient Requires Transmission-Based No No No Precautions Safety Precautions NA NA Height and Weight Height 5 ft 5 in Weight 190 lb Weight in Pounds 190.0 lbs Body Mass Index (BMI) 31.6 31.6 31.6 BMI Classification Obese Obese Obese BSA - [place] 1.94 Vital Signs Temperature (97.8 F-99.1 F) 96.3 F L 96.3 F L 97 F L Temperature Source Temporal Temporal Temporal Pulse Rate (60-100) 103 H 90 89 Pulse Location Monitor Monitor Monitor Respiratory Rate (12-18) 18 Respiratory rate source Observation Oxygen Delivery Method Room Air Blood Pressure (90/60-120/80) 115/70 120/69 154/78 H Blood Pressure Mean 85 86 103 Source Monitor Monitor Monitor Position Sitting Blood Pressure Location Left Arm History Since Last Visit- (Skip if this is Patient's initial visit) Have you changed medications since your No No last visit? Any new allergies or adverse reactions No No Had a fall/change in ADL's that may No No increase risk of falls Signs or symptoms of abuse and/or No No neglect since last visit Have you been in the hospital since your No No last visit? Has dressing in place as prescribed Yes Yes Has compression in place as prescribed N/A N/A Has offloadiing in place as prescribed N/A N/A Experienced any changes in pain level or No No management Left Footwear Regular Shoe Regular Shoe Regular Shoe Right Footwear Regular Shoe Regular Shoe Regular Shoe Pain Scale: 0-10 Numeric Is Patient Pain Free? Yes Yes Yes 04/02/22 10:09 WC - Today's Visit Information Type of service Follow-up Visit (Physician/EXECUTIVE CHAIRMAN ) Arrival Mode Ambulatory Transfer Assistance Patient Identification Verified (Name & Yes ) Patient Requires Transmission-Based Precautions Safety Precautions Height and Weight Height Weight Weight in Pounds Body Mass Index (BMI) 31.6 BMI Classification Obese BSA - [place] Vital Signs Temperature (97.8 F-99.1 F) 97.5 F L Temperature Source Temporal Pulse Rate (60-100) 90 Pulse Location Monitor Respiratory Rate (12-18) Respiratory rate source Oxygen Delivery Method Blood Pressure (90/60-120/80) 156/90 H Blood Pressure Mean 112 Source Monitor Position Sitting Blood Pressure Location Right Arm History Since Last Visit- (Skip if this is Patient's initial visit) Have you changed medications since your No last visit? Any new allergies or adverse reactions No Had a fall/change in ADL's that may No increase risk of falls Signs or symptoms of abuse and/or No neglect since last visit Have you been in the hospital since your No last visit? Has dressing in place as prescribed Yes Has compression in place as prescribed Yes Has offloadiing in place as prescribed N/A Experienced any changes in pain level or No management Left Footwear Regular Shoe Right Footwear Regular Shoe Pain Scale: 0-10 Numeric Is Patient Pain Free? Yes WC - Nurse 1 - General Ulcer Measurement Start: 03/19/22 13:30 Freq: Status: Active Protocol: Activity Type Activity Date Activity User E-sign Co-sign Detail Recorded Client Recorded Date Recorded By Document 03/19/22 13:32 [place] [id number] 03/19/22 13:45 [place] Document 03/26/22 13:41 [facility] [id number] 03/26/22 13:43 [facility] Document 04/02/22 10:09 [id number] 04/02/22 10:15 KR 03/19/22 03/26/22 04/02/22 13:32 13:41 10:09 Wound Center Nurse 1 #11 L calf -Combined with other wound No -Current Size (cm) - Length 0.6 0.8 0.5 -Current Size (cm) - Width 0.5 0.5 0.5 -Current Size (cm) - Depth 0.2 0.3 0.2 -Total Square Cm 0.30 0.40 0.25 -Date of Last Picture (Recall this 03/19/22 field) -Photo Taken Yes No -Epithelialization Small 1-33% -Tunneling No No -Undermining/Tunneling No No -Circular Undermining No No -Change in Wound Grade/Stage No -Exudate Amt Medium Small Small -Exudate Type Serosanguineous Serosanguineous Serosanguineous -Wound Margin Distinct, Distinct, Distinct, Outline Outline Outline Attached Attached Attached -Granulation Amt None Present (0 None Present (0 Medium (34-66%) %) %) -Granulation Quality N/A [place] -Slough/Fibrin Yes Yes -Necrosis Amt Medium (34-66%) Large (67-100%) Small (1-33%) -Necrotic Tissue Type Adherent Slough Adherent Slough Adherent Slough -Structure Exposed N/A -Texture (Karin-wound Skin Appearance) No Abnormality, Assessed, Assessed, Assessed Scarring Scarring -Moisture (Karin-wound Skin Appearance) No Abnormality, Assessed,Dry/ No Abnormality, Assessed Scaly Assessed -Color (Karin-wound Skin Appearance) No Abnormality, Assessed No Abnormality, Assessed Assessed -Temperature (Karin-wound Skin No Abnormality No Abnormality No Abnormality Appearance) (Pt Warm) (Pt Warm) (Pt Warm) -Tenderness on Palpation (Karin-wound No No No Skin Appearance) -Ulcer Cleansing Soap and Water Rinsed/ Rinsed/ Irrigated with Irrigated with Saline Saline -Foul Odor after Cleansing No No No -Anesthetic Used 4% Lidocaine 5% Lidocaine 5% Lidocaine Solution,5% Gel Gel Lidocaine Gel -Wound Comment(s) swelling all around wound Right Calf (cm) 37 Right Ankle (cm) 23 Left Calf (cm) 37 Left Ankle (cm) 23 WC - Nurse 2 - General Ulcer CM Notes Start: 03/19/22 13:30 Freq: Status: Active Protocol: Activity Type Activity Date Activity User E-sign Co-sign Detail Recorded Client Recorded Date Recorded By Document 03/19/22 14:41 PL [id number] 03/19/22 14:42 PL Document 03/26/22 15:26 PL [id number] 03/26/22 15:27 PL Document 04/02/22 11:55 PL [id number] 04/02/22 11:56 PL Document 04/09/22 12:32 PL [id number] 04/09/22 12:33 PL 03/19/22 03/26/22 04/02/22 14:41 15:26 11:55 Wound Center Nurse 2 10. RLE inferior -Procedure Performed No #11 L calf -Time 13:57 13:51 10:30 -Correct Patient Yes Yes Yes -Correct Side, Site, Position Yes Yes Yes -Correct Procedure Yes Yes Yes -Procedure Performed Yes Yes Yes -Type of Procedure Debridement Debridement Debridement -Clinical Debridement Subcutaneous Subcutaneous Subcutaneous -Tissue Removed Subcutaneous Subcutaneous Subcutaneous -Post Debridement (cm) - Length 0.6 0.8 0.5 -Post Debridement (cm) - Width 0.5 0.5 0.5 -Post Debridement (cm) - Depth 0.2 0.3 0.2 -Total Square (Post) (cm) 0.30 0.40 0.25 -Area of Debridement (cm) - Length 0.6 0.8 0.5 -Area of Debridement (cm) - Width 0.5 0.5 0.5 -Total Square (Area) (cm) 0.30 0.40 0.25 -Tunneling No No No -Undermining/Tunneling No No No -Circular Undermining No No No -Wound/Ulcer Outcome Not Healed Not Healed Not Healed -Ulcer Cleansing Rinsed/ Rinsed/ Rinsed/ Irrigated with Irrigated with Irrigated with Saline Saline Saline -Foul Odor after Cleansing No No No -Bioengineered Tissue No No No -Bleeding Controlled with Pressure Pressure Pressure -Treatment Response Procedure Procedure Procedure Tolerated Well Tolerated Well Tolerated Well -Debridement - Subq, 1st 20sq cm Yes Yes Yes Pain Scale: 0-10 Numeric Is Patient Pain Free? Yes Yes Yes 04/09/22 12:32 Wound Center Nurse 2 10. RLE inferior -Procedure Performed #11 L calf -Time 10:45 -Correct Patient Yes -Correct Side, Site, Position Yes -Correct Procedure Yes -Procedure Performed Yes -Type of Procedure Debridement -Clinical Debridement Subcutaneous -Tissue Removed Subcutaneous -Post Debridement (cm) - Length 0.5 -Post Debridement (cm) - Width 0.5 -Post Debridement (cm) - Depth 0.2 -Total Square (Post) (cm) 0.25 -Area of Debridement (cm) - Length 0.5 -Area of Debridement (cm) - Width 0.5 -Total Square (Area) (cm) 0.25 -Tunneling No -Undermining/Tunneling No -Circular Undermining No -Wound/Ulcer Outcome Not Healed -Ulcer Cleansing Rinsed/ Irrigated with Saline -Foul Odor after Cleansing No -Bioengineered Tissue No -Bleeding Controlled with Pressure -Treatment Response Procedure Tolerated Well -Debridement - Subq, 1st 20sq cm Yes Pain Scale: 0-10 Numeric Is Patient Pain Free? Yes WC - Nurse 3 - General Ulcer D/C NN Start: 03/19/22 13:30 Freq: Status: Active Protocol: Activity Type Activity Date Activity User E-sign Co-sign Detail Recorded Client Recorded Date Recorded By Document 03/22/22 10:52 AK [id number] 03/22/22 10:53 AK Document 03/26/22 14:04 [facility] [id number] 03/26/22 14:05 [facility] Document 04/02/22 10:55 AK [id number] 04/02/22 10:57 AK 03/22/22 03/26/22 04/02/22 10:52 14:04 10:55 Wound Care Nurse 3 #11 L calf -Ulcer Cleansing Rinsed/ Rinsed/ Rinsed/ Irrigated with Irrigated with Irrigated with Saline Saline Saline -Foul Odor after Cleansing No No No -Negative Pressure Wound Therapy N/A N/A -Primary Dressing Applied Mepilex Border, Nugauze, Plain Nugauze, Nugauze, Plain Iodoform Iodoform Iodoform -Primary Dressing Covered/Secured with Dry Gauze, Dry Gauze, Secured with Secured with Tape Tape -Mepilex Border 1 -Nugauze, Iodoform 1/4 1 -Nugauze, Plain Iodoform 1/4 1 1 Left -Lotion applied to leg before No compression wrap -Tubular Bandage Single Layer -Size of Tubigrip Used Size D -Size D ($) 1 Treatment Response Procedure Tolerated Well Pain Scale: 0-10 Numeric Is Patient Pain Free? Yes Yes Yes WC - Visit Discharge Discharge Condition Stable Stable Stable Ambulatory Status Ambulatory Ambulatory Transportation Private Auto Private Auto Accompanied by Medication Reconcilliation completed & Yes Yes provided to patient/care provider Clinical Summary of Care Provided Yes Yes Assessment/Plan Assessment/Plan (1) Leg wound, left: CODE(S): S81.802A - Unspecified open wound, left lower leg, initial encounter QUALIFIERS: Encounter type: subsequent encounter Qualified Code(s): S81.802D - Unspecified open wound, left lower leg, subsequent encounter (2) Nonrheumatic aortic (valve) stenosis: CODE(S): I35.0 - Nonrheumatic aortic (valve) stenosis (3) Secondary pulmonary arterial hypertension: CODE(S): I27.21 - Secondary pulmonary arterial hypertension (4) Essential (primary) hypertension: CODE(S): I10 - Essential (primary) hypertension (5) HLD (hyperlipidemia): CODE(S): E78.5 - Hyperlipidemia, unspecified (6) Left ventricular diastolic dysfunction: CODE(S): I51.9 - Heart disease, unspecified (7) History of pulmonary embolism: CODE(S): Z86.711 - Personal history of pulmonary embolism (8) History of deep vein thrombosis of lower extremity: CODE(S): Z86.718 - Personal history of other venous thrombosis and embolism (9) Obesity: CODE(S): E66.9 - Obesity, unspecified (10) Iron deficiency anemia due to chronic blood loss: CODE(S): D50.0 - Iron deficiency anemia secondary to blood loss (chronic) (11) Anemia of chronic renal failure, stage 3 (moderate): CODE(S): N18.30 - Chronic kidney disease, stage 3 unspecified; D63.1 - Anemia in chronic kidney disease QUALIFIERS: Chronic kidney disease stage 3 subtype: stage 3a (GFR 45-59) Qualified Code(s): N18.31 - Chronic kidney disease, stage 3a; D63.1 - Anemia in chronic kidney disease (12) Chronic asthma: CODE(S): J45.909 - Unspecified asthma, uncomplicated (13) Rheumatoid arthritis: CODE(S): M06.9 - Rheumatoid arthritis, unspecified (14) GERD (gastroesophageal reflux disease): CODE(S): K21.9 - Gastro-esophageal reflux disease without esophagitis (15) Hypothyroidism: CODE(S): E03.9 - Hypothyroidism, unspecified (16) History of prostate cancer: CODE(S): Z85.46 - Personal history of malignant neoplasm of prostate (17) Diverticulosis: CODE(S): K57.90 - Diverticulosis of intestine, part unspecified, without perforation or abscess without bleeding (18) Degenerative joint disease of knee, right: CODE(S): M17.11 - Unilateral primary osteoarthritis, right knee (19) Gout: CODE(S): M10.9 - Gout, unspecified (20) History of hernia repair: CODE(S): Z98.890 - Other specified postprocedural states; Z87.19 - Personal history of other diseases of the digestive system (21) History of prostatectomy: CODE(S): Z90.79 - Acquired absence of other genital organ(s) (22) History of total knee replacement: CODE(S): Z96.659 - Presence of unspecified artificial knee joint (23) History of appendectomy: CODE(S): Z90.49 - Acquired absence of other specified parts of digestive tract (24) History of total left hip replacement: CODE(S): Z96.642 - Presence of left artificial hip joint PLAN: Plan This is an 81-year-old male who presented with a traumatic wound on the left posterior calf. The wound had been present for approximately 3 weeks. We are to continue treatment by means of saline moistened 1/4 inch Nu Gauze, which will be used as packing on a daily basis. We are to recruit the assistance of home health nursing care for daily wound packing, and to assist in the training of the patient's . Nutritional optimization has been recommended. A noninvasive lower extremity arterial study was performed on March 27, 2022, which reveals evidence of arterial calcification at multiple levels bilaterally, but no evidence of significant arterial occlusive disease in the lower extremities bilaterally. Recent laboratory studies have been done, and have been reviewed herein. Given that significant undermining is noted relative to the left posterior calf wound, it is suspected that the patient may warrant surgical unroofing and debridement in the operating room setting. The current morphology of the wound is not amenable to spontaneous healing. Nonetheless, we are to continue with 1/4 inch Nu Gauze packing which will be changed on a daily basis. The patient is to return in 1 week for reassessment. Consideration will be given to surgical unroofing and debridement in the coming weeks, depending on the patient's evolving clinical course. Total time: 29 minutes
[2022-04-16 11:10] VITALS: BP 142/72; PULSE 105; TEMP 35.7; BMI 31.6
--- NOTE | 2022-04-16 14:51 | HP.PCM_ITS ---
History of Present Illness Date of Service: 04/16/22 Chief Complaint: Traumatic wound of the left posterior calf History of Wound: This is an 81-year-old male who presented with a traumatic wound on the left posterior calf. He recently began driving a new vehicle, and during entering and exiting the vehicle he was scraping his left posterior calf against the rocker panel. After this had been ongoing for some time, the patient noticed some bleeding from the site, which made him aware of a wound wh ich have developed. He was seen at an outpatient clinic, where doxycycline and Augmentin were prescribed on March 11, 2022, for total of 10 days, and which are now nearly completed. The wound has been present, in the patient's estimation, for approximately 3 weeks. Patient has multiple pre-existing medical problems, which are listed below. He has a history of deep vein thrombosis in his lower extremities. The patient underwent laboratory testing on February 22, 2022, with results as follows: Glucose 107, BUN 21, creatinine 1.54, calcium 9.1, sodium 140, potassium 4.2, chloride 109, white blood count 6.8, hemoglobin 10.1, hematocrit 32.4, platelets 236. He underwent cardiac catheterization on February 25, 2022, the results of which revealed a left ventricular ejection fraction of 60%, normal left ventricular wall motion, normal left ventricular systolic function, mild luminal irregularities of the left main, mild luminal irregularities of the left anterior descending with less than 30% stenosis, mild luminal irregularities of the circumflex artery, and mild luminal irregularities of the right coronary artery. Moderate aortic valve calcification and mild aortic valve stenosis were noted. A venous Doppler study performed on 02/01/2022 revealed chronic venous changes in the left popliteal vein. A noninvasive lower extremity arterial study performed in 2016 revealed no evidence of significant arterial occlusive disease. 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, right Diverticulosis Diverticulosis Essential (primary) hypertension Gout Gout Hay fever History of deep vein thrombosis of lower extremity HLD (hyperlipidemia) Hypothyroidism Iron deficiency anemia due to chronic blood loss Left ventricular diastolic dysfunction Leg wound, left Macular degeneration Nonrheumatic aortic (valve) stenosis Osteoarthritis Pleural plaque Pulmonary nodule Right knee DJD Secondary pulmonary arterial hypertension Skin cancer Traumatic open wound of right lower leg with infection Venous ulcer with fat layer exposed Home Medications nitroglycerin 0.4 mg sublingual tablet 0.4 mg sublingual PRN PRN CHEST PAIN 05/01/18 [History Last Taken Unknown] acetaminophen 500 mg tablet 1,000 mg PO BID PRN PRN Pain 12/04/18 [History Last Taken 12/03/18] epinephrine 0.3 mg/0.3 mL injection, auto-injector 0.3 mg IJ PRN PRN Anaphylaxis 12/04/18 [History Last Taken Unknown] multivitamin 1 tab PO QAM 04/19/19 [History Last Taken Unknown] polysaccharide iron complex 150 mg iron capsule 150 mg PO DAILY 01/25/21 [History Last Taken Unknown] febuxostat 40 mg tablet 40 mg PO DAILY 02/28/21 [History Last Taken Unknown] albuterol sulfate 2.5 mg/3 mL (0.083 %) solution for nebulization 2.5 mg (3 mL) inhalation Q6H #180 mL 05/04/21 [Rx Last Taken Unknown] fluticasone propionate 230 mcg-salmeterol 21 mcg/actuation HFA inhaler 2 puff inhalation BID #1 device 07/23/21 [Rx Last Taken Unknown] tiotropium bromide 2.5 mcg/actuation mist for inhalation (Spiriva Respimat) 2 puff inhalation QDAY #1 ea 07/23/21 [Rx Last Taken Unknown] albuterol sulfate 90 mcg/actuation aerosol inhaler 2 puff inhalation Q4H PRN PRN Sob &/Or Wheezing #1 ea 08/03/21 [Rx Last Taken Unknown] levothyroxine 75 mcg tablet 75 mcg PO DAILY #90 tabs 08/08/21 [Rx Last Taken 02/25/22] chlorthalidone 25 mg tablet 25 mg PO DAILY #90 tabs 08/13/21 [Rx Last Taken Unknown] sertraline 100 mg tablet 100 mg PO DAILY #30 tabs 08/23/21 [Rx Last Taken Unknown] famotidine 40 mg tablet 40 mg PO DAILY #30 tabs 12/31/21 [Rx Last Taken Unknown] nystatin 100,000 unit/mL oral suspension 5 ml mucous membrane TID PRN 04/10/22 [History Last Taken Unknown] nystatin-triamcinolone topical cream applic topical PRN 04/10/22 [History Last Taken Unknown] Allergy/AdvReac Type Severity Reaction Status Date / Time indomethacin [From Indocin] AdvReac Intermediate Itching Verified 04/10/22 10:43 indomethacin sodium AdvReac Intermediate Itching Verified 04/10/22 10:43 [From Indocin] oxycodone HCl [From Percocet] AdvReac Intermediate Itching Verified 04/10/22 10:43 Family History Father Heart disease Colon cancer Sister Diabetes Mother Breast cancer Surgical History H/O hernia repair H/O prostatectomy H/O shoulder surgery H/O total knee replacement History of appendectomy History of appendectomy History of carpal tunnel surgery History of hernia repair History of left heart catheterization (02/25/22) History of prostatectomy History of total knee replacement History of total left hip replacement History of total left hip replacement Social History household members: spouse housing: house Smoking Status: Never smoker second hand exposure: No alcohol intake: current alcohol intake frequency: holidays/special occasions only Alcohol type: beer substance use type: does not use caffeine: Yes Type: coffee Number of servings: 2 what type of physical activity do you participate in: walking frequency: daily giancarlo/christianity: Taoism seatbelt use: always do you feel safe at home: Yes Vital Signs Vital Signs Vital Signs: 04/16/22 11:10 Temperature 96.3 F L Temperature Source Temporal Pulse Rate 105 H Blood Pressure 142/72 H Blood Pressure Mean 95 Blood Pressure Source Monitor Weight Weight: 190 lb Body Mass Index (BMI) 31.6 Physical Exam Const alert, oriented x3, no apparent distress and well nourished General Appearance: cooperative, comfortable, well kempt and well developed Orientation / Consciousness: awake, oriented to person, oriented to place and oriented to time HEENT normocephalic, head/scalp atraumatic and hearing grossly normal bilaterally Head and Scalp: normal to inspection, normocephalic and atraumatic External Ear: external ears normal Eyes PERRL and EOMs intact bilaterally General Eye: normal appearance of both eyes Pupil: PERRL Resp normal respiratory effort, normal air movement, no retractions and no use of accessory muscles Effort and Inspection: able to speak in complete sentences Extremity General Extremity: Negative for clubbing or cyanosis Skin Wound Narrative: An open wound is noted in the patient's left posterior calf. Dimensions are documented elsewhere. There is no sign of infection or cellulitis. The wound has decreased in size since examined 1 week ago. There is a moderate amount of bioburden. The degree of undermining superiorly appears to be diminishing. Neuro oriented x3, CN's II-XII intact bilaterally, moves all extremities and no focal motor deficits Sensorium / Orientation: awake, alert, oriented to person, oriented to place and oriented to time Psych Appearance: grossly normal and appropriate Attitude: calm Activity / Motor Behavior: appropriate eye contact Speech: normal speech Mood & Affect: euthymic mood Thought Process: normal thought process Thought Content: normal thought content Attention / Concentration: attention grossly intact Debridement Note Debridement Note Wound debrided: Left posterior calf Laterality: Left Type of Debridement: Excisional debridement Anesthesia Used: 5% Lidocaine Gel Depth: Down to and including healthy tissue and in the subcutaneous layer Percentage of wound debrided: 100 Instrument Used: 3mm curette Tissue Removed: Bioburden and nonviable tissue Severity: Fat Layer Exposed Amount of bleeding with debridement: Mild Bleeding Controlled with: Compression and gauze Patient tolerated procedure: Patient tolerated procedure well Debridement Free Text: Of note, considerable undermining is noted superiorly, extending more than 1 cm. Post-Debridement Measurements and Additional Note: Post-Debridement Measurements/Treatment WC - Nurse 1 - General Ulcer Assessment Start: 03/19/22 13:30 Freq: Status: Active Protocol: JERRY.DAYO Activity Type Activity Date Activity User E-sign Co-sign Detail Recorded Client Recorded Date Recorded By Document 03/19/22 13:32 AK [id number] 03/19/22 13:45 AK Document 03/22/22 10:50 AK [id number] 03/22/22 10:52 AK Document 03/26/22 13:41 [facility] [id number] 03/26/22 13:43 [facility] Document 04/02/22 10:09 KR [id number] 04/02/22 10:15 KR Document 04/09/22 13:13 KR [id number] 04/09/22 13:20 KR Document 04/16/22 11:10 KR [id number] 04/16/22 11:12 KR 03/19/22 03/22/22 03/26/22 13:32 10:50 13:41 WC - Today's Visit Information Type of service Initial Visit Follow-up Visit Follow-up Visit (Physician/MANAGER METROLOGY (Physician/MANAGER METROLOGY ) ) Arrival Mode Ambulatory Ambulatory Ambulatory Transfer Assistance None Patient Identification Verified (Name & Yes No Yes ) Patient Requires Transmission-Based No No No Precautions Safety Precautions NA NA Height and Weight Height 5 ft 5 in Weight 190 lb Weight in Pounds 190.0 lbs Body Mass Index (BMI) 31.6 31.6 31.6 BMI Classification Obese Obese Obese [facility] - [place] 1.94 Vital Signs Temperature (97.8 F-99.1 F) 96.3 F L 96.3 F L 97 F L Temperature Source Temporal Temporal Temporal Pulse Rate (60-100) 103 H 90 89 Pulse Location Monitor Monitor Monitor Respiratory Rate (12-18) 18 Respiratory rate source Observation Oxygen Delivery Method Room Air Blood Pressure (90/60-120/80) 115/70 120/69 154/78 H Blood Pressure Mean 85 86 103 Source Monitor Monitor Monitor Position Sitting Blood Pressure Location Left Arm History Since Last Visit- (Skip if this is Patient's initial visit) Have you changed medications since your No No last visit? Any new allergies or adverse reactions No No Had a fall/change in ADL's that may No No increase risk of falls Signs or symptoms of abuse and/or No No neglect since last visit Have you been in the hospital since your No No last visit? Has dressing in place as prescribed Yes Yes Has compression in place as prescribed N/A N/A Has offloadiing in place as prescribed N/A N/A Experienced any changes in pain level or No No management Left Footwear Regular Shoe Regular Shoe Regular Shoe Right Footwear Regular Shoe Regular Shoe Regular Shoe Pain Scale: 0-10 Numeric Is Patient Pain Free? Yes Yes Yes 04/02/22 04/09/22 04/16/22 10:09 13:13 11:10 WC - Today's Visit Information Type of service Follow-up Visit Follow-up Visit Follow-up Visit (Physician/MANAGER METROLOGY (Physician/MANAGER METROLOGY (Physician/MANAGER METROLOGY ) ) ) Arrival Mode Ambulatory Ambulatory Ambulatory Transfer Assistance Patient Identification Verified (Name & Yes Yes Yes ) Patient Requires Transmission-Based No No Precautions Safety Precautions Height and Weight Height Weight Weight in Pounds Body Mass Index (BMI) 31.6 31.6 31.6 BMI Classification Obese Obese Obese [facility] - [place] Vital Signs Temperature (97.8 F-99.1 F) 97.5 F L 97.3 F L 96.3 F L Temperature Source Temporal Temporal Temporal Pulse Rate (60-100) 90 89 105 H Pulse Location Monitor Monitor Monitor Respiratory Rate (12-18) Respiratory rate source Oxygen Delivery Method Blood Pressure (90/60-120/80) 156/90 H 146/78 H 142/72 H Blood Pressure Mean 112 100 95 Source Monitor Monitor Monitor Position Sitting Blood Pressure Location Right Arm History Since Last Visit- (Skip if this is Patient's initial visit) Have you changed medications since your No No No last visit? Any new allergies or adverse reactions No No No Had a fall/change in ADL's that may No No No increase risk of falls Signs or symptoms of abuse and/or No No No neglect since last visit Have you been in the hospital since your No No No last visit? Has dressing in place as prescribed Yes Yes Yes Has compression in place as prescribed Yes Yes Yes Has offloadiing in place as prescribed N/A N/A N/A Experienced any changes in pain level or No No No management Left Footwear Regular Shoe Regular Shoe Regular Shoe Right Footwear Regular Shoe Regular Shoe Regular Shoe Pain Scale: 0-10 Numeric Is Patient Pain Free? Yes No Yes WC - Nurse 1 - General Ulcer Measurement Start: 03/19/22 13:30 Freq: Status: Active Protocol: Activity Type Activity Date Activity User E-sign Co-sign Detail Recorded Client Recorded Date Recorded By Document 03/19/22 13:32 AK [id number] 03/19/22 13:45 AK Document 03/26/22 13:41 [facility] [id number] 03/26/22 13:43 BM Document 04/02/22 10:09 KR [id number] 04/02/22 10:15 KR Document 04/09/22 13:13 KR [id number] 11/22/22 13:20 KR Document 04/16/22 11:10 KR [id number] 04/16/22 11:12 KR 03/19/22 03/26/22 04/02/22 13:32 13:41 10:09 Wound Center Nurse 1 #11 L calf -Combined with other wound No -Current Size (cm) - Length 0.6 0.8 0.5 -Current Size (cm) - Width 0.5 0.5 0.5 -Current Size (cm) - Depth 0.2 0.3 0.2 -Total Square Cm 0.30 0.40 0.25 -Date of Last Picture (Recall this 03/19/22 field) -Photo Taken Yes No -Epithelialization Small 1-33% -Tunneling No No -Undermining/Tunneling No No -Circular Undermining No No -Change in Wound Grade/Stage No -Exudate Amt Medium Small Small -Exudate Type Serosanguineous Serosanguineous Serosanguineous -Wound Margin Distinct, Distinct, Distinct, Outline Outline Outline Attached Attached Attached -Granulation Amt None Present (0 None Present (0 Medium (34-66%) %) %) -Granulation Quality N/A Ponce -Slough/Fibrin Yes Yes -Necrosis Amt Medium (34-66%) Large (67-100%) Small (1-33%) -Necrotic Tissue Type Adherent Slough Adherent Slough Adherent Slough -Structure Exposed N/A -Texture (Karin-wound Skin Appearance) No Abnormality, Assessed, Assessed, Assessed Scarring Scarring -Moisture (Karin-wound Skin Appearance) No Abnormality, Assessed,Dry/ No Abnormality, Assessed Scaly Assessed -Color (Karin-wound Skin Appearance) No Abnormality, Assessed No Abnormality, Assessed Assessed -Temperature (Karin-wound Skin No Abnormality No Abnormality No Abnormality Appearance) (Pt Warm) (Pt Warm) (Pt Warm) -Tenderness on Palpation (Karin-wound No No No Skin Appearance) -Ulcer Cleansing Soap and Water Rinsed/ Rinsed/ Irrigated with Irrigated with Saline Saline -Foul Odor after Cleansing No No No -Anesthetic Used 4% Lidocaine 5% Lidocaine 5% Lidocaine Solution,5% Gel Gel Lidocaine Gel -Wound Comment(s) swelling all around wound Right Calf (cm) 37 Right Ankle (cm) 23 Left Calf (cm) 37 Left Ankle (cm) 23 04/09/22 04/16/22 13:13 11:10 Wound Center Nurse 1 #11 L calf -Combined with other wound No No -Current Size (cm) - Length 0.8 0.6 -Current Size (cm) - Width 0.5 0.5 -Current Size (cm) - Depth 0.4 0.3 -Total Square Cm 0.40 0.30 -Date of Last Picture (Recall this 04/09/22 field) -Photo Taken Yes Yes -Epithelialization None Present -Tunneling No No -Undermining/Tunneling No No -Circular Undermining No No -Change in Wound Grade/Stage No No -Exudate Amt Medium None Present -Exudate Type Serosanguineous Serosanguineous -Wound Margin Distinct, Distinct, Outline Outline Attached Attached -Granulation Amt Medium (34-66%) Medium (34-66%) -Granulation Quality Ponce Hyper- granulation -Slough/Fibrin Yes No -Necrosis Amt Small (1-33%) Small (1-33%) -Necrotic Tissue Type Adherent Slough Adherent Slough -Structure Exposed N/A N/A -Texture (Karin-wound Skin Appearance) No Abnormality, No Abnormality, Assessed Assessed -Moisture (Karin-wound Skin Appearance) No Abnormality, No Abnormality, Assessed Assessed -Color (Karin-wound Skin Appearance) No Abnormality, No Abnormality, Assessed Assessed -Temperature (Karin-wound Skin No Abnormality No Abnormality Appearance) (Pt Warm) (Pt Warm) -Tenderness on Palpation (Karin-wound No No Skin Appearance) -Ulcer Cleansing Soap and Water Rinsed/ Irrigated with Saline -Foul Odor after Cleansing No No -Anesthetic Used 5% Lidocaine 4% Lidocaine Gel Solution -Wound Comment(s) Right Calf (cm) Right Ankle (cm) Left Calf (cm) Left Ankle (cm) WC - Nurse 2 - General Ulcer CM Notes Start: 03/19/22 13:30 Freq: Status: Active Protocol: Activity Type Activity Date Activity User E-sign Co-sign Detail Recorded Client Recorded Date Recorded By Document 03/19/22 14:41 PL [id number] 03/19/22 14:42 PL Document 03/26/22 15:26 PL [id number] 03/26/22 15:27 PL Document 04/02/22 11:55 PL [id number] 04/02/22 11:56 PL Document 04/09/22 12:32 PL [id number] 04/09/22 12:33 PL Document 04/16/22 14:42 PL [id number] 04/16/22 14:43 PL 03/19/22 03/26/22 04/02/22 14:41 15:26 11:55 Wound Center Nurse 2 10. RLE inferior -Procedure Performed No #11 L calf -Time 13:57 13:51 10:30 -Correct Patient Yes Yes Yes -Correct Side, Site, Position Yes Yes Yes -Correct Procedure Yes Yes Yes -Procedure Performed Yes Yes Yes -Type of Procedure Debridement Debridement Debridement -Clinical Debridement Subcutaneous Subcutaneous Subcutaneous -Tissue Removed Subcutaneous Subcutaneous Subcutaneous -Post Debridement (cm) - Length 0.6 0.8 0.5 -Post Debridement (cm) - Width 0.5 0.5 0.5 -Post Debridement (cm) - Depth 0.2 0.3 0.2 -Total Square (Post) (cm) 0.30 0.40 0.25 -Area of Debridement (cm) - Length 0.6 0.8 0.5 -Area of Debridement (cm) - Width 0.5 0.5 0.5 -Total Square (Area) (cm) 0.30 0.40 0.25 -Tunneling No No No -Undermining/Tunneling No No No -Circular Undermining No No No -Wound/Ulcer Outcome Not Healed Not Healed Not Healed -Ulcer Cleansing Rinsed/ Rinsed/ Rinsed/ Irrigated with Irrigated with Irrigated with Saline Saline Saline -Foul Odor after Cleansing No No No -Bioengineered Tissue No No No -Bleeding Controlled with Pressure Pressure Pressure -Treatment Response Procedure Procedure Procedure Tolerated Well Tolerated Well Tolerated Well -Debridement - Subq, 1st 20sq cm Yes Yes Yes Pain Scale: 0-10 Numeric Is Patient Pain Free? Yes Yes Yes 04/09/22 04/16/22 12:32 14:42 Wound Center Nurse 2 10. RLE inferior -Procedure Performed #11 L calf -Time 10:45 10:59 -Correct Patient Yes Yes -Correct Side, Site, Position Yes Yes -Correct Procedure Yes Yes -Procedure Performed Yes Yes -Type of Procedure Debridement Debridement -Clinical Debridement Subcutaneous Subcutaneous -Tissue Removed Subcutaneous Subcutaneous -Post Debridement (cm) - Length 0.5 0.6 -Post Debridement (cm) - Width 0.5 0.5 -Post Debridement (cm) - Depth 0.2 0.3 -Total Square (Post) (cm) 0.25 0.30 -Area of Debridement (cm) - Length 0.5 0.6 -Area of Debridement (cm) - Width 0.5 0.5 -Total Square (Area) (cm) 0.25 0.30 -Tunneling No No -Undermining/Tunneling No No -Circular Undermining No No -Wound/Ulcer Outcome Not Healed Not Healed -Ulcer Cleansing Rinsed/ Rinsed/ Irrigated with Irrigated with Saline Saline -Foul Odor after Cleansing No No -Bioengineered Tissue No No -Bleeding Controlled with Pressure Pressure -Treatment Response Procedure Procedure Tolerated Well Tolerated Well -Debridement - Subq, 1st 20sq cm Yes Yes Pain Scale: 0-10 Numeric Is Patient Pain Free? Yes Yes WC - Nurse 3 - General Ulcer D/C NN Start: 03/19/22 13:30 Freq: Status: Active Protocol: Activity Type Activity Date Activity User E-sign Co-sign Detail Recorded Client Recorded Date Recorded By Document 03/22/22 10:52 AK [id number] 03/22/22 10:53 AK Document 03/26/22 14:04 [facility] [id number] 03/26/22 14:05 [facility] Document 04/02/22 10:55 AK [id number] 04/02/22 10:57 AK Document 04/09/22 13:13 KR [id number] 04/09/22 13:20 KR Document 04/16/22 11:12 KR [id number] 04/16/22 11:13 KR 03/22/22 03/26/22 04/02/22 10:52 14:04 10:55 Wound Care Nurse 3 #11 L calf -Ulcer Cleansing Rinsed/ Rinsed/ Rinsed/ Irrigated with Irrigated with Irrigated with Saline Saline Saline -Foul Odor after Cleansing No No No -Negative Pressure Wound Therapy N/A N/A -Primary Dressing Applied Mepilex Border, Nugauze, Plain Nugauze, Nugauze, Plain Iodoform Iodoform Iodoform -Other Dressing -Primary Dressing Covered/Secured with Dry Gauze, Dry Gauze, Secured with Secured with Tape Tape -Mepilex Border 1 -Nugauze, Iodoform /4 1 -Nugauze, Plain Iodoform /4 1 1 Left -Lotion applied to leg before No compression wrap -Tubular Bandage Single Layer -Size of Tubigrip Used Size D -Size D ($) 1 -Other Treatment Response Procedure Tolerated Well Vital Signs Temperature (97.8 F-99.1 F) Temperature Source Pulse Rate (60-100) Pulse Location Blood Pressure (90/60-120/80) Blood Pressure Mean Source Pain Scale: 0-10 Numeric Is Patient Pain Free? Yes Yes Yes WC - Visit Discharge Discharge Condition Stable Stable Stable Ambulatory Status Ambulatory Ambulatory Transportation Private [employer] Private Auto Accompanied by Medication Reconcilliation completed & Yes Yes provided to patient/care provider Clinical Summary of Care Provided Yes Yes 04/09/22 04/16/22 13:13 11:12 Wound Care Nurse 3 #11 L calf -Ulcer Cleansing Rinsed/ Rinsed/ Irrigated with Irrigated with Saline Saline -Foul Odor after Cleansing No No -Negative Pressure Wound Therapy N/A N/A -Primary Dressing Applied Nugauze, Iodoform -Other Dressing nuguaze -Primary Dressing Covered/Secured with Dry Gauze & Dry Gauze, Roll Gauze, Secured with Secured with Tape Tape -Mepilex Border -Nugauze, Iodoform 1/4 1 -Nugauze, Plain Iodoform 1/4 Left -Lotion applied to leg before No compression wrap -Tubular Bandage -Size of Tubigrip Used -Size D ($) -Other own Treatment Response Vital Signs Temperature (97.8 F-99.1 F) 97.3 F L Temperature Source Temporal Pulse Rate (60-100) 89 Pulse Location Monitor Blood Pressure (90/60-120/80) 146/78 H Blood Pressure Mean 100 Source Monitor Pain Scale: 0-10 Numeric Is Patient Pain Free? No Yes WC - Visit Discharge Discharge Condition Stable Stable Ambulatory Status Ambulatory Ambulatory Transportation Private Auto Private Auto Accompanied by Medication Reconcilliation completed & Yes Yes provided to patient/care provider Clinical Summary of Care Provided Yes Yes Assessment/Plan Assessment/Plan (1) Leg wound, left: CODE(S): S81.802A - Unspecified open wound, left lower leg, initial encoun ter QUALIFIERS: Encounter type: subsequent encounter Qualified Code(s): S81.802D - Unspecified open wound, left lower leg, subsequent encounter (2) Nonrheumatic aortic (valve) stenosis: CODE(S): I35.0 - Nonrheumatic aortic (valve) stenosis (3) Secondary pulmonary arterial hypertension: CODE(S): I27.21 - Secondary pulmonary arterial hypertension (4) Essential (primary) hypertension: CODE(S): I10 - Essential (primary) hypertension (5) HLD (hyperlipidemia): CODE(S): E78.5 - Hyperlipidemia, unspecified (6) Left ventricular diastolic dysfunction: CODE(S): I51.9 - Heart disease, unspecified (7) History of pulmonary embolism: CODE(S): Z86.711 - Personal history of pulmonary embolism (8) History of deep vein thrombosis of lower extremity: CODE(S): Z86.718 - Personal history of other venous thrombosis and embolism (9) Obesity: CODE(S): E66.9 - Obesity, unspecified (10) Iron deficiency anemia due to chronic blood loss: CODE(S): D50.0 - Iron deficiency anemia secondary to blood loss (chronic) (11) Anemia of chronic renal failure, stage 3 (moderate): CODE(S): N18.30 - Chronic kidney disease, stage 3 unspecified; D63.1 - Anemia in chronic kidney disease QUALIFIERS: Chronic kidney disease stage 3 subtype: stage 3a (GFR 45-59) Qualified Code(s): N18.31 - Chronic kidney disease, stage 3a; D63.1 - Anemia in chronic kidney disease (12) Chronic asthma: CODE(S): J45.909 - Unspecified asthma, uncomplicated (13) Rheumatoid arthritis: CODE(S): M06.9 - Rheumatoid arthritis, unspecified (14) GERD (gastroesophageal reflux disease): CODE(S): K21.9 - Gastro-esophageal reflux disease without esophagitis (15) Hypothyroidism: CODE(S): E03.9 - Hypothyroidism, unspecified (16) History of prostate cancer: CODE(S): Z85.46 - Personal history of malignant neoplasm of prostate (17) Diverticulosis: CODE(S): K57.90 - Diverticulosis of intestine, part unspecified, without perforation or abscess without bleeding (18) Degenerative joint disease of knee, right: CODE(S): M17.11 - Unilateral primary osteoarthritis, right knee (19) Gout: CODE(S): M10.9 - Gout, unspecified (20) History of hernia repair: CODE(S): Z98.890 - Other specified postprocedural states; Z87.19 - Personal history of other diseases of the digestive system (21) History of prostatectomy: CODE(S): Z90.79 - Acquired absence of other genital organ(s) (22) History of total knee replacement: CODE(S): Z96.659 - Presence of unspecified artificial knee joint (23) History of appendectomy: CODE(S): Z90.49 - Acquired absence of other specified parts of digestive tract (24) History of total left hip replacement: CODE(S): Z96.642 - Presence of left artificial hip joint PLAN: Plan This is an 81-year-old male who presented with a traumatic wound on the left posterior calf. The wound had been present for approximately 3 weeks. We are to continue treatment by means of saline moistened 1/4 inch Nu Gauze, which will be used as packing on a daily basis. We are to continue the assistance of home health nursing care for daily wound packing, and to assist in the training of the patient's . Nutritional optimization has been recommended. A noninvasive lower extremity arterial study was performed on March 27, 2022, which reveals evidence of arterial calcification at multiple levels bilaterally, but no evidence of significant arterial occlusive disease in the lower extremities bilaterally. Recent laboratory studies have been done, and have been reviewed herein. Consideration has been given to surgical unroofing and debridement in the operating room setting, but recent improvements in the status of the wound suggest that this may not be necessary. We are to continue with saline moistened 1/4 inch Nu Gauze packing which will be changed on a daily basis. The patient has been encouraged to elevate his lower extremities as much as possible to minimize swelling in his lower extremities. The patient is to return in 1 week for reassessment. Total time: 29 minutes
== END 2022-04-17 23:59 | disposition home or self-care (01) ==
LOC: WC 10:45
PROVIDERS: PCP Internal Medicine; Referring Provider Surgery; Visit Provider Surgery
DX: S81.832A Puncture wound without foreign body, left lower leg, initial encounter (principal); M06.9 Rheumatoid arthritis, unspecified; I27.21 Secondary pulmonary arterial hypertension; I70.203 Unspecified atherosclerosis of native arteries of extremities, bilateral legs; I70.213 Atherosclerosis of native arteries of extremities with intermittent claudication, bilateral legs; N18.31 Chronic kidney disease, stage 3a; Z79.52 Long term (current) use of systemic steroids; E78.5 Hyperlipidemia, unspecified; D63.1 Anemia in chronic kidney disease; I12.9 Hypertensive chronic kidney disease with stage 1 through stage 4 chronic kidney disease, or unspecified chronic kidney disease; J45.909 Unspecified asthma, uncomplicated; K21.9 Gastro-esophageal reflux disease without esophagitis; E03.9 Hypothyroidism, unspecified; E66.9 Obesity, unspecified; Z79.899 Other long term (current) drug therapy; Z79.82 Long term (current) use of aspirin; Z79.890 Hormone replacement therapy; Z68.31 Body mass index [BMI] 31.0-31.9, adult; Z86.718 Personal history of other venous thrombosis and embolism; I35.0 Nonrheumatic aortic (valve) stenosis; Z86.2 Personal history of diseases of the blood and blood-forming organs and certain disorders involving the immune mechanism; M17.11 Unilateral primary osteoarthritis, right knee; Z86.711 Personal history of pulmonary embolism
CPT/HCPCS: 11042; 93923; 99212; 99213; G0463

== ENCOUNTER 2022-05-07 10:15 | Outpatient (RCR) | payer MEDICARE, SELFPAY ==
[2022-04-18 00:09] VITALS: BP 142/72; PULSE 105; RESP 18; TEMP 35.7; BMI 31.6
[2022-04-23 10:34] VITALS: BP 154/74; PULSE 103; TEMP 36.6; BMI 31.6
--- NOTE | 2022-04-23 14:55 | PCM.WC.HP ---
History of Present Illness Date of Service: 04/23/22 Chief Complaint: Traumatic wound of the left posterior calf History of Wound: This is an 81-year-old male who presented with a traumatic wound on the left posterior calf. He recently began driving a new vehicle, and during entering and exiting the vehicle he was scraping his left posterior calf against the rocker panel. After this had been ongoing for some time, the patient noticed some bleeding from the site, which made him aware of a wound which have developed. He was seen at an outpatient clinic, where doxycycline and Augmentin were prescribed on March 11, 2022, for total of 10 days, and which are now nearly completed. The wound has been present, in the patient's estimation, for approximately 3 weeks. Patient has multiple pre-existing medical problems, which are listed below. He has a history of deep vein thrombosis in his lower extremities. The patient underwent laboratory testing on February 22, 2022, with results as follows: Glucose 107, BUN 21, creatinine 1.54, calcium 9.1, sodium 140, potassium 4.2, chloride 109, white blood count 6.8, hemoglobin 10.1, hematocrit 32.4, platelets 236. He underwent cardiac catheterization on February 25, 2022, the results of which revealed a left ventricular ejection fraction of 60%, normal left ventricular wall motion, normal left ventricular systolic function, mild luminal irregularities of the left main, mild luminal irregularities of the left anterior descending with less than 30% stenosis, mild luminal irregularities of the circumflex artery, and mild luminal irregularities of the right coronary artery. Moderate aortic valve calcification and mild aortic valve stenosis were noted. A venous Doppler study performed on 02/01/2022 revealed chronic venous changes in the left popliteal vein. A noninvasive lower extremity arterial study performed in 2016 revealed no evidence of significant arterial occlusive disease. [facility] Medical History (Updated 04/23/22 @ 15:[address] 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, right Diverticulosis Diverticulosis Essential (primary) hypertension Gout Gout Hay fever History of deep vein thrombosis of lower extremity HLD (hyperlipidemia) Hypothyroidism Iron deficiency anemia due to chronic blood loss Left ventricular diastolic dysfunction Leg wound, left Macular degeneration Non-pressure chronic ulcer of left calf with fat layer exposed Nonrheumatic aortic (valve) stenosis Osteoarthritis Pleural plaque Pulmonary nodule Right knee DJD Secondary pulmonary arterial hypertension Skin cancer Traumatic open wound of right lower leg with infection Venous ulcer with fat layer exposed Home Medications nitroglycerin 0.4 mg sublingual tablet 0.4 mg sublingual PRN PRN CHEST PAIN 05/01/18 [History Last Taken Unknown] acetaminophen 500 mg tablet 1,000 mg PO BID PRN PRN Pain 12/04/18 [History Last Taken 12/03/18] epinephrine 0.3 mg/0.3 mL injection, auto-injector 0.3 mg IJ PRN PRN Anaphylaxis 12/04/18 [History Last Taken Unknown] multivitamin 1 tab PO QAM 04/19/19 [History Last Taken Unknown] polysaccharide iron complex 150 mg iron capsule 150 mg PO DAILY 01/25/21 [History Last Taken Unknown] febuxostat 40 mg tablet 40 mg PO DAILY 02/28/21 [History Last Taken Unknown] albuterol sulfate 2.5 mg/3 mL (0.083 %) solution for nebulization 2.5 mg (3 mL) inhalation Q6H #180 mL 05/04/21 [Rx Last Taken Unknown] fluticasone propionate 230 mcg-salmeterol 21 mcg/actuation HFA inhaler 2 puff inhalation BID #1 device 07/23/21 [Rx Last Taken Unknown] tiotropium bromide 2.5 mcg/actuation mist for inhalation (Spiriva Respimat) 2 puff inhalation QDAY #1 ea 07/23/21 [Rx Last Taken Unknown] albuterol sulfate 90 mcg/actuation aerosol inhaler 2 puff inhalation Q4H PRN PRN Sob &/Or Wheezing #1 ea 08/03/21 [Rx Last Taken Unknown] levothyroxine 75 mcg tablet 75 mcg PO DAILY #90 tabs 08/08/21 [Rx Last Taken 02/25/22] chlorthalidone 25 mg tablet 25 mg PO DAILY #90 tabs 08/13/21 [Rx Last Taken Unknown] sertraline 100 mg tablet 100 mg PO DAILY #30 tabs 08/23/21 [Rx Last Taken Unknown] famotidine 40 mg tablet 40 mg PO DAILY #30 tabs 12/31/21 [Rx Last Taken Unknown] nystatin 100,000 unit/mL oral suspension 5 ml mucous membrane TID PRN 04/10/22 [History Last Taken Unknown] nystatin-triamcinolone topical cream applic topical PRN 04/10/22 [History Last Taken Unknown] Allergy/AdvReac Type Severity Reaction Status Date / Time indomethacin [From Indocin] AdvReac Intermediate Itching Verified 04/10/22 10:43 indomethacin sodium AdvReac Intermediate Itching Verified 04/10/22 10:43 [From Indocin] oxycodone HCl [From Percocet] AdvReac Intermediate Itching Verified 04/10/22 10:43 Family History Father Heart disease Colon cancer Sister Diabetes Mother Breast cancer Surgical History H/O hernia repair H/O prostatectomy H/O shoulder surgery H/O total knee replacement History of appendectomy History of appendectomy History of carpal tunnel surgery History of hernia repair History of left heart catheterization (02/25/22) History of prostatectomy History of total knee replacement History of total left hip replacement History of total left hip replacement Social History household members: spouse housing: house Smoking Status: Never smoker second hand exposure: No alcohol intake: current alcohol intake frequency: holidays/special occasions only Alcohol type: beer substance use type: does not use caffeine: Yes Type: coffee Number of servings: 2 what type of physical activity do you participate in: walking frequency: daily giancarlo/worship: [employer] seatbelt use: always do you feel safe at home: Yes Vital Signs Vital Signs Vital Signs: 04/23/22 10:34 Temperature 98 F Temperature Source Temporal Pulse Rate 103 H Blood Pressure 154/74 H Blood Pressure Mean 100 Blood Pressure Source Monitor Weight Weight: 190 lb Body Mass Index (BMI) 31.6 Physical Exam Const alert, oriented x3, no apparent distress and well nourished General Appearance: cooperative, comfortable, well kempt and well developed Orientation / Consciousness: awake, oriented to person, oriented to place and oriented to time HEENT normocephalic, head/scalp atraumatic and hearing grossly normal bilaterally Head and Scalp: normal to inspection, normocephalic and atraumatic External Ear: external ears normal Eyes PERRL and EOMs intact bilaterally General Eye: normal appearance of both eyes Pupil: PERRL Resp normal respiratory effort, normal air movement, no retractions and no use of accessory muscles Effort and Inspection: able to speak in complete sentences Extremity General Extremity: Negative for clubbing or cyanosis Skin Wound Narrative: An open wound is noted in the patient's left posterior calf. Dimensions are documented elsewhere. There is no sign of infection or cellulitis. The wound has decreased in size since examined 1 week ago. There is a moderate amount of bioburden. The degree of undermining superiorly appears to be diminishing, and is nearly eliminated. Neuro oriented x3, CN's II-XII intact bilaterally, moves all extremities and no focal motor deficits Sensorium / Orientation: awake, alert, oriented to person, oriented to place and oriented to time Psych Appearance: grossly normal and appropriate Attitude: calm Activity / Motor Behavior: appropriate eye contact Speech: normal speech Mood & Affect: euthymic mood Thought Process: normal thought process Thought Content: normal thought content Attention / Concentration: attention grossly intact Debridement Note Debridement Note Wound debrided: Left posterior calf Laterality: Left Type of Debridement: Excisional debridement Anesthesia Used: 5% Lidocaine Gel Depth: Down to and including healthy tissue and in the subcutaneous layer Percentage of wound debrided: 100 Instrument Used: 3mm curette Tissue Removed: Bioburden and nonviable tissue Severity: Fat Layer Exposed Amount of bleeding with debridement: Mild Bleeding Controlled with: Compression and gauze Patient tolerated procedure: Patient tolerated procedure well Debridement Free Text: The amount of undermining has diminished significantly, and is now nearly eliminated. Post-Debridement Measurements and Additional Note: Post-Debridement Measurements/Treatment - Nurse 1 - General Ulcer Assessment Start: 04/23/22 10:33 Freq: Status: Active Protocol: [email or web address] Activity Type Activity Date Activity User E-sign Co-sign Detail Recorded Client Recorded Date Recorded By Document 04/23/22 10:34 CARLY [id number] 04/23/22 10:36 CARLY 04/23/22 10:34 - Today's Visit Information Type of service Follow-up Visit (Physician/[employer] ) Arrival Mode Ambulatory Patient Identification Verified (Name & Yes ) Patient Requires Transmission-Based No Precautions Safety Precautions NA Height and Weight Body Mass Index (BMI) 31.6 BMI Classification Obese Vital Signs Temperature (97.8 F-99.1 F) 98 F Temperature Source Temporal Pulse Rate (60-100) 103 H Pulse Location Monitor Blood Pressure (90/60-120/80) 154/74 H Blood Pressure Mean 100 Source Monitor History Since Last Visit- (Skip if this is Patient's initial visit) Have you changed medications since your No last visit? Any new allergies or adverse reactions No Had a fall/change in ADL's that may No increase risk of falls Signs or symptoms of abuse and/or No neglect since last visit Have you been in the hospital since your No last visit? Has dressing in place as prescribed Yes Has compression in place as prescribed Yes Has offloadiing in place as prescribed N/A Experienced any changes in pain level or No management Left Footwear Regular Shoe Right Footwear Regular Shoe Pain Scale: 0-10 Numeric Is Patient Pain Free? Yes WC - Nurse 1 - General Ulcer Measurement Start: 04/23/22 10:33 Freq: Status: Active Protocol: Activity Type Activity Date Activity User E-sign Co-sign Detail Recorded Client Recorded Date Recorded By Document 04/23/22 10:34 NM [id number] 04/23/22 10:36 CARLY 04/23/22 10:34 Wound Center Nurse 1 #11 L calf -Combined with other wound No -Current Size (cm) - Length 0.6 -Current Size (cm) - Width 0.4 -Current Size (cm) - Depth 0.1 -Total Square Cm 0.24 -Date of Last Picture (Recall this 04/23/22 field) -Photo Taken Yes -Tunneling No -Undermining/Tunneling No -Circular Undermining No -Change in Wound Grade/Stage No -Exudate Amt Small -Exudate Type Serosanguineous -Wound Margin Distinct, Outline Attached -Granulation Amt None Present (0 %) -Granulation Quality N/A -Slough/Fibrin No -Necrosis Amt None Present (0 %) -Structure Exposed N/A -Texture (Karin-wound Skin Appearance) No Abnormality, Assessed -Moisture (Karin-wound Skin Appearance) No Abnormality, Assessed -Color (Karin-wound Skin Appearance) No Abnormality, Assessed -Temperature (Karin-wound Skin No Abnormality Appearance) (Pt Warm) -Tenderness on Palpation (Karin-wound No Skin Appearance) -Ulcer Cleansing Rinsed/ Irrigated with Saline -Foul Odor after Cleansing No -Anesthetic Used 5% Lidocaine Gel WC - Nurse 2 - General Ulcer CM Notes Start: 04/23/22 10:33 Freq: Status: Active Protocol: Activity Type Activity Date Activity User E-sign Co-sign Detail Recorded Client Recorded Date Recorded By Document 04/23/22 12:44 PL [id number] 04/23/22 12:45 PL 04/23/22 12:44 Wound Center Nurse 2 -Time 10:41 -Correct Patient Yes -Correct Side, Site, Position Yes -Correct Procedure Yes -Procedure Performed Yes -Type of Procedure Debridement -Clinical Debridement Subcutaneous -Tissue Removed Subcutaneous -Post Debridement (cm) - Length 0.6 -Post Debridement (cm) - Width 0.4 -Post Debridement (cm) - Depth 0.1 -Total Square (Post) (cm) 0.24 -Area of Debridement (cm) - Length 0.6 -Area of Debridement (cm) - Width 0.4 -Total Square (Area) (cm) 0.24 -Tunneling No -Undermining/Tunneling No -Circular Undermining No -Wound/Ulcer Outcome Not Healed -Ulcer Cleansing Rinsed/ Irrigated with Saline -Foul Odor after Cleansing No -Bioengineered Tissue No -Bleeding Controlled with Pressure -Treatment Response Procedure Tolerated Well -Debridement - Subq, 1st 20sq cm Yes Pain Scale: 0-10 Numeric Is Patient Pain Free? Yes - Nurse 3 - General Ulcer D/C NN Start: 04/23/22 10:33 Freq: Status: Active Protocol: Activity Type Activity Date Activity User E-sign Co-sign Detail Recorded Client Recorded Date Recorded By Document 04/23/22 12:54 AK [id number] 04/23/22 12:55 AK 04/23/22 12:54 Wound Care Nurse 3 #11 L calf -Ulcer Cleansing Rinsed/ Irrigated with Saline -Foul Odor after Cleansing No -Negative Pressure Wound Therapy N/A -Primary Dressing Applied Promogran -Primary Dressing Covered/Secured with Dry Gauze, Secured with Tape -Promogran 1 Pain Scale: 0-10 Numeric Is Patient Pain Free? Yes WC - Visit Discharge Discharge Condition Stable Ambulatory Status Ambulatory Transportation Private Auto Medication Reconcilliation completed & Yes provided to patient/care provider Clinical Summary of Care Provided Yes Assessment/Plan Assessment/Plan (1) Leg wound, left: CODE(S): S81.802A - Unspecified open wound, left lower leg, initial encounter QUALIFIERS: Encounter type: subsequent encounter Qualified Code(s): S81.802D - Unspecified open wound, left lower leg, subsequent encounter (2) Non-pressure chronic ulcer of left calf with fat layer exposed: CODE(S): L97.222 - Non-pressure chronic ulcer of left calf with fat layer exposed (3) Nonrheumatic aortic (valve) stenosis: CODE(S): I35.0 - Nonrheumatic aortic (valve) stenosis (4) Secondary pulmonary arterial hypertension: CODE(S): I27.21 - Secondary pulmonary arterial hypertension (5) Essential (primary) hypertension: CODE(S): I10 - Essential (primary) hypertension (6) HLD (hyperlipidemia): CODE(S): E78.5 - Hyperlipidemia, unspecified (7) Left ventricular diastolic dysfunction: CODE(S): I51.9 - Heart disease, unspecified (8) History of pulmonary embolism: CODE(S): Z86.711 - Personal history of pulmonary embolism (9) History of deep vein thrombosis of lower extremity: CODE(S): Z86.718 - Personal history of other venous thrombosis and embolism (10) Obesity: CODE(S): E66.9 - Obesity, unspecified (11) Iron deficiency anemia due to chronic blood loss: CODE(S): D50.0 - Iron deficiency anemia secondary to blood loss (chronic) (12) Anemia of chronic renal failure, stage 3 (moderate): CODE(S): N18.30 - Chronic kidney disease, stage 3 unspecified; D63.1 - Anemia in chronic kidney disease QUALIFIERS: Chronic kidney disease stage 3 subtype: stage 3a (GFR 45-59) Qualified Code(s): N18.31 - Chronic kidney disease, stage 3a; D63.1 - Anemia in chronic kidney disease (13) Chronic asthma: CODE(S): J45.909 - Unspecified asthma, uncomplicated (14) Rheumatoid arthritis: CODE(S): M06.9 - Rheumatoid arthritis, unspecified (15) GERD (gastroesophageal reflux disease): CODE(S): K21.9 - Gastro-esophageal reflux disease without esophagitis (16) Hypothyroidism: CODE(S): E03.9 - Hypothyroidism, unspecified (17) History of prostate cancer: CODE(S): Z85.46 - Personal history of malignant neoplasm of prostate (18) Diverticulosis: CODE(S): K57.90 - Diverticulosis of intestine, part unspecified, without perforation or abscess without bleeding (19) Degenerative joint disease of knee, right: CODE(S): M17.11 - Unilateral primary osteoarthritis, right knee (20) Gout: CODE(S): M10.9 - Gout, unspecified (21) History of hernia repair: CODE(S): Z98.890 - Other specified postprocedural states; Z87.19 - Personal history of other diseases of the digestive system (22) History of prostatectomy: CODE(S): Z90.79 - Acquired absence of other genital organ(s) (23) History of total knee replacement: CODE(S): Z96.659 - Presence of unspecified artificial knee joint (24) History of appendectomy: CODE(S): Z90.49 - Acquired absence of other specified parts of digestive tract (25) History of total left hip replacement: CODE(S): Z96.642 - Presence of left artificial hip joint PLAN: Plan This is an 81-year-old male who presented with a traumatic wound on the left posterior calf. The wound had been present for approximately 3 weeks. We are to continue treatment by means of saline moistened 1/4 inch Nu Gauze, which will be used as packing on a daily basis. We are to continue the assistance of home health nursing care for daily wound packing, and to assist in the training of the patient's . Nutritional optimization has been recommended. A noninvasive lower extremity arterial study was performed on March 27, 2022, which reveals evidence of arterial calcification at multiple levels bilaterally, but no evidence of significant arterial occlusive disease in the lower extremities bilaterally. Recent laboratory studies have been done, and have been reviewed herein. Consideration has been given to surgical unroofing and debridement in the operating room setting, but recent improvements in the status of the wound suggest that this may not be necessary. Because of the diminishing size of the wound, we are to transition to the use of Promogran, which will be applied by the patient on a daily basis. The patient has been instructed in the appropriate means of application. The patient has been encouraged to elevate his lower extremities as much as possible to minimize swelling in his lower extremities. The patient is to return in 1 week for reassessment. Total time: 28 minutes
[2022-04-30 10:16] VITALS: BP 140/77; PULSE 97; TEMP 36.2; BMI 31.6
--- NOTE | 2022-04-30 11:45 | HP.PCM_ITS ---
History of Present Illness Date of Service: 04/30/22 Chief Complaint: Traumatic wound of the left posterior calf History of Wound: This is an 81-year-old male who presented with a traumatic wound on the left posterior calf. He recently began driving a new vehicle, and during entering and exiting the vehicle he was scraping his left posterior calf against the rocker panel. After this had been ongoing for some time, the patient noticed some bleeding from the site, which made him aware of a wound wh ich have developed. He was seen at an outpatient clinic, where doxycycline and Augmentin were prescribed on March 11, 2022, for total of 10 days, and which are now nearly completed. The wound has been present, in the patient's estimation, for approximately 3 weeks. Patient has multiple pre-existing medical problems, which are listed below. He has a history of deep vein thrombosis in his lower extremities. The patient underwent laboratory testing on February 22, 2022, with results as follows: Glucose 107, BUN 21, creatinine 1.54, calcium 9.1, sodium 140, potassium 4.2, chloride 109, white blood count 6.8, hemoglobin 10.1, hematocrit 32.4, platelets 236. He underwent cardiac catheterization on February 25, 2022, the results of which revealed a left ventricular ejection fraction of 60%, normal left ventricular wall motion, normal left ventricular systolic function, mild luminal irregularities of the left main, mild luminal irregularities of the left anterior descending with less than 30% stenosis, mild luminal irregularities of the circumflex artery, and mild luminal irregularities of the right coronary artery. Moderate aortic valve calcification and mild aortic valve stenosis were noted. A venous Doppler study performed on 02/01/2022 revealed chronic venous changes in the left popliteal vein. A noninvasive lower extremity arterial study performed in 2016 revealed no evidence of significant arterial occlusive disease. 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, right Diverticulosis Diverticulosis Essential (primary) hypertension Gout Gout Hay fever History of deep vein thrombosis of lower extremity HLD (hyperlipidemia) Hypothyroidism Iron deficiency anemia due to chronic blood loss Left ventricular diastolic dysfunction Leg wound, left Macular degeneration Non-pressure chronic ulcer of left calf with fat layer exposed Nonrheumatic aortic (valve) stenosis Osteoarthritis Pleural plaque Pulmonary nodule Right knee DJD Secondary pulmonary arterial hypertension Skin cancer Traumatic open wound of right lower leg with infection Venous ulcer with fat layer exposed Home Medications nitroglycerin 0.4 mg sublingual tablet 0.4 mg sublingual PRN PRN CHEST PAIN 05/01/18 [History Last Taken Unknown] acetaminophen 500 mg tablet 1,000 mg PO BID PRN PRN Pain 12/04/18 [History Last Taken 12/03/18] epinephrine 0.3 mg/0.3 mL injection, auto-injector 0.3 mg IJ PRN PRN Anaphylaxis 12/04/18 [History Last Taken Unknown] multivitamin 1 tab PO QAM 04/19/19 [History Last Taken Unknown] polysaccharide iron complex 150 mg iron capsule 150 mg PO DAILY 01/25/21 [History Last Taken Unknown] febuxostat 40 mg tablet 40 mg PO DAILY 02/28/21 [History Last Taken Unknown] albuterol sulfate 2.5 mg/3 mL (0.083 %) solution for nebulization 2.5 mg (3 mL) inhalation Q6H #180 mL 05/04/21 [Rx Last Taken Unknown] fluticasone propionate 230 mcg-salmeterol 21 mcg/actuation HFA inhaler 2 puff inhalation BID #1 device 07/23/21 [Rx Last Taken Unknown] tiotropium bromide 2.5 mcg/actuation mist for inhalation (Spiriva Respimat) 2 puff inhalation QDAY #1 ea 07/23/21 [Rx Last Taken Unknown] albuterol sulfate 90 mcg/actuation aerosol inhaler 2 puff inhalation Q4H PRN PRN Sob &/Or Wheezing #1 ea 08/03/21 [Rx Last Taken Unknown] levothyroxine 75 mcg tablet 75 mcg PO DAILY #90 tabs 08/08/21 [Rx Last Taken 02/25/22] chlorthalidone 25 mg tablet 25 mg PO DAILY #90 tabs 08/13/21 [Rx Last Taken Unknown] sertraline 100 mg tablet 100 mg PO DAILY #30 tabs 08/23/21 [Rx Last Taken Unknown] famotidine 40 mg tablet 40 mg PO DAILY #30 tabs 12/31/21 [Rx Last Taken Unknown] nystatin 100,000 unit/mL oral suspension 5 ml mucous membrane TID PRN 04/10/22 [History Last Taken Unknown] nystatin-triamcinolone topical cream applic topical PRN 04/10/22 [History Last Taken Unknown] Allergy/AdvReac Type Severity Reaction Status Date / Time indomethacin [From Indocin] AdvReac Intermediate Itching Verified 04/10/22 10:43 indomethacin sodium AdvReac Intermediate Itching Verified 04/10/22 10:43 [From Indocin] oxycodone HCl [From Percocet] AdvReac Intermediate Itching Verified 04/10/22 10:43 Family History Father Heart disease Colon cancer Sister Diabetes Mother Breast cancer Surgical History H/O hernia repair H/O prostatectomy H/O shoulder surgery H/O total knee replacement History of appendectomy History of appendectomy History of carpal tunnel surgery History of hernia repair History of left heart catheterization (02/25/22) History of prostatectomy History of total knee replacement History of total left hip replacement History of total left hip replacement Social History household members: spouse housing: house Smoking Status: Never smoker second hand exposure: No alcohol intake: current alcohol intake frequency: holidays/special occasions only Alcohol type: beer substance use type: does not use caffeine: Yes Type: coffee Number of servings: 2 what type of physical activity do you participate in: walking frequency: daily giancarlo/mu-ism: Moravian seatbelt use: always do you feel safe at home: Yes Vital Signs Vital Signs Vital Signs: 04/30/22 10:16 Temperature 97.2 F L Temperature Source Temporal Pulse Rate 97 Blood Pressure 140/77 H Blood Pressure Mean 98 Blood Pressure Source Monitor Weight Weight: 190 lb Body Mass Index (BMI) 31.6 Physical Exam Const alert, oriented x3, no apparent distress and well nourished General Appearance: cooperative, comfortable, well kempt and well developed Orientation / Consciousness: awake, oriented to person, oriented to place and oriented to time HEENT normocephalic, head/scalp atraumatic and hearing grossly normal bilaterally Head and Scalp: normal to inspection, normocephalic and atraumatic External Ear: external ears normal Eyes PERRL and EOMs intact bilaterally General Eye: normal appearance of both eyes Pupil: PERRL Resp normal respiratory effort, normal air movement, no retractions and no use of accessory muscles Effort and Inspection: able to speak in complete sentences Extremity General Extremity: Negative for clubbing or cyanosis Skin Wound Narrative: An open wound is noted in the patient's left posterior calf. Dimensions are documented elsewhere. There is no sign of infection or cellulitis. The wound has decreased in size since examined 1 week ago. There is a moderate amount of bioburden. Undermining has been eliminated. Neuro oriented x3, CN's II-XII intact bilaterally, moves all extremities and no focal motor deficits Sensorium / Orientation: awake, alert, oriented to person, oriented to place and oriented to time Psych Appearance: grossly normal and appropriate Attitude: calm Activity / Motor Behavior: appropriate eye contact Speech: normal speech Mood & Affect: euthymic mood Thought Process: normal thought process Thought Content: normal thought content Attention / Concentration: attention grossly intact Debridement Note Debridement Note Wound debrided: Left posterior calf Laterality: Left Type of Debridement: Excisional debridement Anesthesia Used: 5% Lidocaine Gel Depth: Down to and including healthy tissue and in the subcutaneous layer Percentage of wound debrided: 100 Instrument Used: 3mm curette Tissue Removed: Bioburden and nonviable tissue Severity: Fat Layer Exposed Amount of bleeding with debridement: Mild Bleeding Controlled with: Compression and gauze Patient tolerated procedure: Patient tolerated procedure well Debridement Free Text: The amount of undermining has diminished significantly, and is now nearly eliminated. Post-Debridement Measurements and Additional Note: Post-Debridement Measurements/Treatment - Nurse 1 - General Ulcer Assessment Start: 04/23/22 10:33 Freq: Status: Active Protocol: [email or web address] Activity Type Activity Date Activity User E-sign Co-sign Detail Recorded Client Recorded Date Recorded By Document 04/23/22 10:34 CARLY [id number] 04/23/22 10:36 [place] Document 04/30/22 10:16 CARLY [id number] 04/30/22 10:20 [place] 04/23/22 04/30/22 10:34 10:16 - Today's Visit Information Type of service Follow-up Visit Follow-up Visit (Physician/GRAVEL HAULER (Physician/GRAVEL HAULER ) ) Arrival Mode Ambulatory Ambulatory Patient Identification Verified (Name & Yes Yes ) Patient Requires Transmission-Based No No Precautions Safety Precautions NA NA Height and Weight Body Mass Index (BMI) 31.6 31.6 BMI Classification Obese Obese Vital Signs Temperature (97.8 F-99.1 F) 98 F 97.2 F L Temperature Source Temporal Temporal Pulse Rate (60-100) 103 H 97 Pulse Location Monitor Monitor Blood Pressure (90/60-120/80) 154/74 H 140/77 H Blood Pressure Mean 100 98 Source Monitor Monitor History Since Last Visit- (Skip if this is Patient's initial visit) Have you changed medications since your No No last visit? Any new allergies or adverse reactions No No Had a fall/change in ADL's that may No No increase risk of falls Signs or symptoms of abuse and/or No No neglect since last visit Have you been in the hospital since your No No last visit? Has dressing in place as prescribed Yes Yes Has compression in place as prescribed Yes N/A Has offloadiing in place as prescribed N/A N/A Experienced any changes in pain level or No No management Left Footwear Regular Shoe Regular Shoe Right Footwear Regular Shoe Regular Shoe Pain Scale: 0-10 Numeric Is Patient Pain Free? Yes Yes WC - Nurse 1 - General Ulcer Measurement Start: 04/23/22 10:33 Freq: Status: Active Protocol: Activity Type Activity Date Activity User E-sign Co-sign Detail Recorded Client Recorded Date Recorded By Document 04/23/22 10:34 [place] [id number] 04/23/22 10:36 [place] Document 04/30/22 10:16 [place] [id number] 04/30/22 10:20 [place] 04/23/22 04/30/22 10:34 10:16 Wound Center Nurse 1 #11 L calf -Combined with other wound No No -Current Size (cm) - Length 0.6 0.3 -Current Size (cm) - Width 0.4 0.3 -Current Size (cm) - Depth 0.1 0.1 -Total Square Cm 0.24 0.09 -Date of Last Picture (Recall this 04/23/22 04/30/22 field) -Photo Taken Yes Yes -Tunneling No No -Undermining/Tunneling No No -Circular Undermining No No -Change in Wound Grade/Stage No No -Exudate Amt Small Small -Exudate Type Serosanguineous Serosanguineous -Wound Margin Distinct, Distinct, Outline Outline Attached Attached -Granulation Amt None Present (0 Medium (34-66%) %) -Granulation Quality N/A [place] -Slough/Fibrin No No -Necrosis Amt None Present (0 None Present (0 %) %) -Structure Exposed N/A N/A -Texture (Karin-wound Skin Appearance) No Abnormality, No Abnormality, Assessed Assessed -Moisture (Karin-wound Skin Appearance) No Abnormality, No Abnormality, Assessed Assessed -Color (Karin-wound Skin Appearance) No Abnormality, No Abnormality, Assessed Assessed -Temperature (Karin-wound Skin No Abnormality No Abnormality Appearance) (Pt Warm) (Pt Warm) -Tenderness on Palpation (Karin-wound No No Skin Appearance) -Ulcer Cleansing Rinsed/ Rinsed/ Irrigated with Irrigated with Saline Saline -Foul Odor after Cleansing No No -Anesthetic Used 5% Lidocaine 5% Lidocaine Gel Gel WC - Nurse 2 - General Ulcer CM Notes Start: 04/23/22 10:33 Freq: Status: Active Protocol: Activity Type Activity Date Activity User E-sign Co-sign Detail Recorded Client Recorded Date Recorded By Document 04/23/22 12:44 SWATHI [id number] 04/23/22 12:45 SWATHI 04/23/22 12:44 Wound Center Nurse 2 -Time 10:41 -Correct Patient Yes -Correct Side, Site, Position Yes -Correct Procedure Yes -Procedure Performed Yes -Type of Procedure Debridement -Clinical Debridement Subcutaneous -Tissue Removed Subcutaneous -Post Debridement (cm) - Length 0.6 -Post Debridement (cm) - Width 0.4 -Post Debridement (cm) - Depth 0.1 -Total Square (Post) (cm) 0.24 -Area of Debridement (cm) - Length 0.6 -Area of Debridement (cm) - Width 0.4 -Total Square (Area) (cm) 0.24 -Tunneling No -Undermining/Tunneling No -Circular Undermining No -Wound/Ulcer Outcome Not Healed -Ulcer Cleansing Rinsed/ Irrigated with Saline -Foul Odor after Cleansing No -Bioengineered Tissue No -Bleeding Controlled with Pressure -Treatment Response Procedure Tolerated Well -Debridement - Subq, 1st 20sq cm Yes Pain Scale: 0-10 Numeric Is Patient Pain Free? Yes WC - Nurse 3 - General Ulcer D/C NN Start: 04/23/22 10:33 Freq: Status: Active Protocol: Activity Type Activity Date Activity User E-sign Co-sign Detail Recorded Client Recorded Date Recorded By Document 04/23/22 12:54 CARLY [id number] 04/23/22 12:55 [place] Document 04/30/22 10:50 [place] [id number] 04/30/22 10:50 [place] 04/23/22 04/30/22 12:54 10:50 Wound Care Nurse 3 #11 L calf -Ulcer Cleansing Rinsed/ Rinsed/ Irrigated with Irrigated with Saline Saline -Foul Odor after Cleansing No No -Negative Pressure Wound Therapy N/A N/A -Primary Dressing Applied Promogran Promogran -Primary Dressing Covered/Secured with Dry Gauze, Dry Gauze, Secured with Secured with Tape Tape -Promogran 1 1 Pain Scale: 0-10 Numeric Is Patient Pain Free? Yes Yes WC - Visit Discharge Discharge Condition Stable Stable Ambulatory Status Ambulatory Ambulatory Transportation Private Auto Private Auto Medication Reconcilliation completed & Yes Yes provided to patient/care provider Clinical Summary of Care Provided Yes Yes Assessment/Plan Assessment/Plan (1) Leg wound, left: CODE(S): S81.802A - Unspecified open wound, left lower leg, initial encounter QUALIFIERS: Encounter type: subsequent encounter Qualified Code(s): S81.802D - Unspecified open wound, left lower leg, subsequent encounter (2) Non-pressure chronic ulcer of left calf with fat layer exposed: CODE(S): L97.222 - Non-pressure chronic ulcer of left calf with fat layer exposed (3) Nonrheumatic aortic (valve) stenosis: CODE(S): I35.0 - Nonrheumatic aortic (valve) stenosis (4) Secondary pulmonary arterial hypertension: CODE(S): I27.21 - Secondary pulmonary arterial hypertension (5) Essential (primary) hypertension: CODE(S): I10 - Essential (primary) hypertension (6) HLD (hyperlipidemia): CODE(S): E78.5 - Hyperlipidemia, unspecified (7) Left ventricular diastolic dysfunction: CODE(S): I51.9 - Heart disease, unspecified (8) History of pulmonary embolism: CODE(S): Z86.711 - Personal history of pulmonary embolism (9) History of deep vein thrombosis of lower extremity: CODE(S): Z86.718 - Personal history of other venous thrombosis and em bolism (10) Obesity: CODE(S): E66.9 - Obesity, unspecified (11) Iron deficiency anemia due to chronic blood loss: CODE(S): D50.0 - Iron deficiency anemia secondary to blood loss (chronic) (12) Anemia of chronic renal failure, stage 3 (moderate): CODE(S): N18.30 - Chronic kidney disease, stage 3 unspecified; D63.1 - Anemia in chronic kidney disease QUALIFIERS: Chronic kidney disease stage 3 subtype: stage 3a (GFR 45-59) Qualified Code(s): N18.31 - Chronic kidney disease, stage 3a; D63.1 - Anemia in chronic kidney disease (13) Chronic asthma: CODE(S): J45.909 - Unspecified asthma, uncomplicated (14) Rheumatoid arthritis: CODE(S): M06.9 - Rheumatoid arthritis, unspecified (15) GERD (gastroesophageal reflux disease): CODE(S): K21.9 - Gastro-esophageal reflux disease without esophagitis (16) Hypothyroidism: CODE(S): E03.9 - Hypothyroidism, unspecified (17) History of prostate cancer: CODE(S): Z85.46 - Personal history of malignant neoplasm of prostate (18) Diverticulosis: CODE(S): K57.90 - Diverticulosis of intestine, part unspecified, without perforation or abscess without bleeding (19) Degenerative joint disease of knee, right: CODE(S): M17.11 - Unilateral primary osteoarthritis, right knee (20) Gout: CODE(S): M10.9 - Gout, unspecified (21) History of hernia repair: CODE(S): Z98.890 - Other specified postprocedural states; Z87.19 - Personal history of other diseases of the digestive system (22) History of prostatectomy: CODE(S): Z90.79 - Acquired absence of other genital organ(s) (23) History of total knee replacement: CODE(S): Z96.659 - Presence of unspecified artificial knee joint (24) History of appendectomy: CODE(S): Z90.49 - Acquired absence of other specified parts of digestive tract (25) History of total left hip replacement: CODE(S): Z96.642 - Presence of left artificial hip joint PLAN: Plan This is an 81-year-old male who presented with a traumatic wound on the left posterior calf. The wound had been present for approximately 3 weeks. Nutritional optimization has been recommended. A noninvasive lower extremity arterial study was performed on March 27, 2022, which revealed evidence of arterial calcification at multiple levels bilaterally, but no evidence of significant arterial occlusive disease in the lower extremities bilaterally. Recent laboratory studies have been done, and have been reviewed herein. Consideration has been given to surgical unroofing and debridement in the operating room setting, but recent improvements in the status of the wound suggest that this may not be necessary. Because of the diminishing size of the wound, we are to continue the use of Promogran, which will be applied by the patient on a daily basis. The patient has been instructed in the appropriate means of application. The patient has been encouraged to elevate his lower extremities as much as possible to minimize swelling in his lower extremities. The patient is to return in 1 week for reassessment. Total time: 26 minutes
[2022-05-07 11:05] VITALS: BP 139/86; PULSE 91; TEMP 35.5; BMI 31.6
--- NOTE | 2022-05-07 13:21 | PCM.WC.HP ---
History of Present Illness Date of Service: 05/07/22 Chief Complaint: Traumatic wound of the left posterior calf History of Wound: This is an 81-year-old male who presented with a traumatic wound on the left posterior calf. He recently began driving a new vehicle, and during entering and exiting the vehicle he was scraping his left posterior calf against the rocker panel. After this had been ongoing for some time, the patient noticed some bleeding from the site, which made him aware of a wound which have developed. He was seen at an outpatient clinic, where doxycycline and Augmentin were prescribed on March 11, 2022, for total of 10 days, and which are now nearly completed. The wound has been present, in the patient's estimation, for approximately 3 weeks. Patient has multiple pre-existing medical problems, which are listed below. He has a history of deep vein thrombosis in his lower extremities. The patient underwent laboratory testing on February 22, 2022, with results as follows: Glucose 107, BUN 21, creatinine 1.54, calcium 9.1, sodium 140, potassium 4.2, chloride 109, white blood count 6.8, hemoglobin 10.1, hematocrit 32.4, platelets 236. He underwent cardiac catheterization on February 25, 2022, the results of which revealed a left ventricular ejection fraction of 60%, normal left ventricular wall motion, normal left ventricular systolic function, mild luminal irregularities of the left main, mild luminal irregularities of the left anterior descending with less than 30% stenosis, mild luminal irregularities of the circumflex artery, and mild luminal irregularities of the right coronary artery. Moderate aortic valve calcification and mild aortic valve stenosis were noted. A venous Doppler study performed on 02/01/2022 revealed chronic venous changes in the left popliteal vein. A noninvasive lower extremity arterial study performed in 2016 revealed no evidence of significant arterial occlusive disease. 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, right Diverticulosis Diverticulosis Essential (primary) hypertension Gout Gout Hay fever History of deep vein thrombosis of lower extremity HLD (hyperlipidemia) Hypothyroidism Iron deficiency anemia due to chronic blood loss Left ventricular diastolic dysfunction Leg wound, left Macular degeneration Non-pressure chronic ulcer of left calf with fat layer exposed Nonrheumatic aortic (valve) stenosis Osteoarthritis Pleural plaque Pulmonary nodule Right knee DJD Secondary pulmonary arterial hypertension Skin cancer Traumatic open wound of right lower leg with infection Venous ulcer with fat layer exposed Home Medications nitroglycerin 0.4 mg sublingual tablet 0.4 mg sublingual PRN PRN CHEST PAIN 05/01/18 [History Last Taken Unknown] acetaminophen 500 mg tablet 1,000 mg PO BID PRN PRN Pain 12/04/18 [History Last Taken 12/03/18] epinephrine 0.3 mg/0.3 mL injection, auto-injector 0.3 mg IJ PRN PRN Anaphylaxis 12/04/18 [History Last Taken Unknown] multivitamin 1 tab PO QAM 04/19/19 [History Last Taken Unknown] polysaccharide iron complex 150 mg iron capsule 150 mg PO DAILY 01/25/21 [History Last Taken Unknown] febuxostat 40 mg tablet 40 mg PO DAILY 02/28/21 [History Last Taken Unknown] albuterol sulfate 2.5 mg/3 mL (0.083 %) solution for nebulization 2.5 mg (3 mL) inhalation Q6H #180 mL 05/04/21 [Rx Last Taken Unknown] fluticasone propionate 230 mcg-salmeterol 21 mcg/actuation HFA inhaler 2 puff inhalation BID #1 device 07/23/21 [Rx Last Taken Unknown] tiotropium bromide 2.5 mcg/actuation mist for inhalation (Spiriva Respimat) 2 puff inhalation QDAY #1 ea 07/23/21 [Rx Last Taken Unknown] albuterol sulfate 90 mcg/actuation aerosol inhaler 2 puff inhalation Q4H PRN PRN Sob &/Or Wheezing #1 ea 08/03/21 [Rx Last Taken Unknown] levothyroxine 75 mcg tablet 75 mcg PO DAILY #90 tabs 08/08/21 [Rx Last Taken 02/25/22] chlorthalidone 25 mg tablet 25 mg PO DAILY #90 tabs 08/13/21 [Rx Last Taken Unknown] sertraline 100 mg tablet 100 mg PO DAILY #30 tabs 08/23/21 [Rx Last Taken Unknown] famotidine 40 mg tablet 40 mg PO DAILY #30 tabs 12/31/21 [Rx Last Taken Unknown] nystatin 100,000 unit/mL oral suspension 5 ml mucous membrane TID PRN 04/10/22 [History Last Taken Unknown] nystatin-triamcinolone topical cream applic topical PRN 04/10/22 [History Last Taken Unknown] Allergy/AdvReac Type Severity Reaction Status Date / Time indomethacin [From Indocin] AdvReac Intermediate Itching Verified 04/10/22 10:43 indomethacin sodium AdvReac Intermediate Itching Verified 04/10/22 10:43 [From Indocin] oxycodone HCl [From Percocet] AdvReac Intermediate Itching Verified 04/10/22 10:43 Family History Father Heart disease Colon cancer Sister Diabetes Mother Breast cancer Surgical History H/O hernia repair H/O prostatectomy H/O shoulder surgery H/O total knee replacement History of appendectomy History of appendectomy History of carpal tunnel surgery History of hernia repair History of left heart catheterization (02/25/22) History of prostatectomy History of total knee replacement History of total left hip replacement History of total left hip replacement Social History household members: spouse housing: house Smoking Status: Never smoker second hand exposure: No alcohol intake: current alcohol intake frequency: holidays/special occasions only Alcohol type: beer substance use type: does not use caffeine: Yes Type: coffee Number of servings: 2 what type of physical activity do you participate in: walking frequency: daily giancarlo/advent: Yazidi seatbelt use: always do you feel safe at home: Yes Vital Signs Vital Signs Vital Signs: 05/07/22 11:05 Temperature 95.9 F L Temperature Source Temporal Pulse Rate 91 Blood Pressure 139/86 H Blood Pressure Mean 103 Blood Pressure Source Monitor Weight Weight: 190 lb Body Mass Index (BMI) 31.6 Physical Exam Const alert, oriented x3, no apparent distress and well nourished General Appearance: cooperative, comfortable, well kempt and well developed Orientation / Consciousness: awake, oriented to person, oriented to place and oriented to time HEENT normocephalic, head/scalp atraumatic and hearing grossly normal bilaterally Head and Scalp: normal to inspection, normocephalic and atraumatic External Ear: external ears normal Eyes PERRL and EOMs intact bilaterally General Eye: normal appearance of both eyes Pupil: PERRL Resp normal respiratory effort, normal air movement, no retractions and no use of accessory muscles Effort and Inspection: able to speak in complete sentences Extremity General Extremity: Negative for clubbing or cyanosis Skin Wound Narrative: The wound on the left posterior calf appears to be completely healed and epithelialized at this time. There is no sign of infection or cellulitis. Neuro oriented x3, CN's II-XII intact bilaterally, moves all extremities and no focal motor deficits Sensorium / Orientation: awake, alert, oriented to person, oriented to place and oriented to time Psych Appearance: grossly normal and appropriate Attitude: calm Activity / Motor Behavior: appropriate eye contact Speech: normal speech Mood & Affect: euthymic mood Thought Process: normal thought process Thought Content: normal thought content Attention / Concentration: attention grossly intact Debridement Note Debridement Note No debridement was completed: No debridement was completed today (The patient's wound appears to be totally healed and epithelialized.) Post-Debridement Measurements and Additional Note: Post-Debridement Measurements/Treatment - Nurse 1 - General Ulcer Assessment Start: 04/23/22 10:33 Freq: Status: Active Protocol: JERRY.DAYO Activity Type Activity Date Activity User E-sign Co-sign Detail Recorded Client Recorded Date Recorded By Document 04/23/22 10:34 KS [id number] 04/23/22 10:36 KS Document 04/30/22 10:16 KS [id number] 04/30/22 10:20 KS Document 05/07/22 11:05 KS [id number] 05/07/22 11:06 KS 04/23/22 04/30/22 05/07/22 10:34 10:16 11:05 - Today's Visit Information Type of service Follow-up Visit Follow-up Visit Follow-up Visit (Physician/NEWSPAPER CORRESPONDENT (Physician/NEWSPAPER CORRESPONDENT (Physician/NEWSPAPER CORRESPONDENT ) ) ) Arrival Mode Ambulatory Ambulatory Ambulatory Patient Identification Verified (Name & Yes Yes Yes ) Patient Requires Transmission-Based No No No Precautions Safety Precautions NA NA NA Height and Weight Body Mass Index (BMI) 31.6 31.6 31.6 BMI Classification Obese Obese Obese Vital Signs Temperature (97.8 F-99.1 F) 98 F 97.2 F L 95.9 F L Temperature Source Temporal Temporal Temporal Pulse Rate (60-100) 103 H 97 91 Pulse Location Monitor Monitor Monitor Blood Pressure (90/60-120/80) 154/74 H 140/77 H 139/86 H Blood Pressure Mean 100 98 103 Source Monitor Monitor Monitor History Since Last Visit- (Skip if this is Patient's initial visit) Have you changed medications since your No No No last visit? Any new allergies or adverse reactions No No No Had a fall/change in ADL's that may No No No increase risk of falls Signs or symptoms of abuse and/or No No No neglect since last visit Have you been in the hospital since your No No No last visit? Has dressing in place as prescribed Yes Yes Yes Has compression in place as prescribed Yes N/A N/A Has offloadiing in place as prescribed N/A N/A N/A Experienced any changes in pain level or No No No management Left Footwear Regular Shoe Regular Shoe Regular Shoe Right Footwear Regular Shoe Regular Shoe Regular Shoe Pain Scale: 0-10 Numeric Is Patient Pain Free? Yes Yes Yes - Nurse 1 - General Ulcer Measurement Start: 04/23/22 10:33 Freq: Status: Active Protocol: Activity Type Activity Date Activity User E-sign Co-sign Detail Recorded Client Recorded Date Recorded By Document 04/23/22 10:34 KS [id number] 04/23/22 10:36 KS Document 04/30/22 10:16 KS [id number] 04/30/22 10:20 AK Document 05/07/22 11:05 KS [id number] 05/07/22 11:06 KS 04/23/22 04/30/22 05/07/22 10:34 10:16 11:05 Wound Center Nurse 1 #11 L calf -Combined with other wound No No No -Current Size (cm) - Length 0.6 0.3 0.3 -Current Size (cm) - Width 0.4 0.3 0.2 -Current Size (cm) - Depth 0.1 0.1 0.1 -Total Square Cm 0.24 0.09 0.06 -Date of Last Picture (Recall this 04/23/22 04/30/22 05/07/22 field) -Photo Taken Yes Yes Yes -Tunneling No No No -Undermining/Tunneling No No No -Circular Undermining No No No -Change in Wound Grade/Stage No No No -Exudate Amt Small Small None Present -Exudate Type Serosanguineous Serosanguineous -Wound Margin Distinct, Distinct, Distinct, Outline Outline Outline Attached Attached Attached -Granulation Amt None Present (0 Medium (34-66%) Large (67-100%) %) -Granulation Quality N/A [place] Pale,[place] -Slough/Fibrin No No No -Necrosis Amt None Present (0 None Present (0 None Present (0 %) %) %) -Structure Exposed N/A N/A N/A -Texture (Karin-wound Skin Appearance) No Abnormality, No Abnormality, No Abnormality, Assessed Assessed Assessed -Moisture (Karin-wound Skin Appearance) No Abnormality, No Abnormality, No Abnormality, Assessed Assessed Assessed -Color (Karin-wound Skin Appearance) No Abnormality, No Abnormality, No Abnormality, Assessed Assessed Assessed -Temperature (Karin-wound Skin No Abnormality No Abnormality No Abnormality Appearance) (Pt Warm) (Pt Warm) (Pt Warm) -Tenderness on Palpation (Karin-wound No No No Skin Appearance) -Ulcer Cleansing Rinsed/ Rinsed/ Rinsed/ Irrigated with Irrigated with Irrigated with Saline Saline Saline -Foul Odor after Cleansing No No No -Anesthetic Used 5% Lidocaine 5% Lidocaine 5% Lidocaine Gel Gel Gel WC - Nurse 2 - General Ulcer CM Notes Start: 04/23/22 10:33 Freq: Status: Active Protocol: Activity Type Activity Date Activity User E-sign Co-sign Detail Recorded Client Recorded Date Recorded By Document 04/23/22 12:44 PL [id number] 04/23/22 12:45 PL Document 04/30/22 11:48 PL [id number] 04/30/22 11:49 PL Document 05/07/22 12:16 PL [id number] 05/07/22 12:16 PL 04/23/22 04/30/22 05/07/22 12:44 11:48 12:16 Wound Center Nurse 2 #11 L calf -Time 10:41 10:25 -Correct Patient Yes Yes -Correct Side, Site, Position Yes Yes -Correct Procedure Yes Yes -Procedure Performed Yes Yes No -Type of Procedure Debridement Debridement -Clinical Debridement Subcutaneous Subcutaneous -Tissue Removed Subcutaneous Subcutaneous -Post Debridement (cm) - Length 0.6 0.3 -Post Debridement (cm) - Width 0.4 0.3 -Post Debridement (cm) - Depth 0.1 0.1 -Total Square (Post) (cm) 0.24 0.09 -Area of Debridement (cm) - Length 0.6 0.3 -Area of Debridement (cm) - Width 0.4 0.3 -Total Square (Area) (cm) 0.24 0.09 -Tunneling No No -Undermining/Tunneling No No -Circular Undermining No No -Wound/Ulcer Outcome Not Healed Not Healed Healed- Epithelialized -Ulcer Cleansing Rinsed/ Rinsed/ Irrigated with Irrigated with Saline Saline -Foul Odor after Cleansing No No -Bioengineered Tissue No No -Bleeding Controlled with Pressure Pressure -Treatment Response Procedure Procedure Tolerated Well Tolerated Well -Debridement - Subq, 1st 20sq cm Yes Yes Pain Scale: 0-10 Numeric Is Patient Pain Free? Yes Yes Yes - Nurse 3 - General Ulcer D/C NN Start: 04/23/22 10:33 Freq: Status: Active Protocol: Activity Type Activity Date Activity User E-sign Co-sign Detail Recorded Client Recorded Date Recorded By Document 04/23/22 12:54 CARLY [id number] 04/23/22 12:55 AK Document 04/30/22 10:50 KS [id number] 04/30/22 10:50 KS 04/23/22 04/30/22 12:54 10:50 Wound Care Nurse 3 #11 L calf -Ulcer Cleansing Rinsed/ Rinsed/ Irrigated with Irrigated with Saline Saline -Foul Odor after Cleansing No No -Negative Pressure Wound Therapy N/A N/A -Primary Dressing Applied Promogran Promogran -Primary Dressing Covered/Secured with Dry Gauze, Dry Gauze, Secured with Secured with Tape Tape -Promogran 1 1 Pain Scale: 0-10 Numeric Is Patient Pain Free? Yes Yes - Visit Discharge Discharge Condition Stable Stable Ambulatory Status Ambulatory Ambulatory Transportation Private Auto Private Auto Medication Reconcilliation completed & Yes Yes provided to patient/care provider Clinical Summary of Care Provided Yes Yes Assessment/Plan Assessment/Plan (1) Leg wound, left: CODE(S): S81.802A - Unspecified open wound, left lower leg, initial encounter QUALIFIERS: Encounter type: subsequent encounter Qualified Code(s): S81.802D - Unspecified open wound, left lower leg, subsequent encounter (2) Non-pressure chronic ulcer of left calf with fat layer exposed: CODE(S): L97.222 - Non-pressure chronic ulcer of left calf with fat layer exposed (3) Nonrheumatic aortic (valve) stenosis: CODE(S): I35.0 - Nonrheumatic aortic (valve) stenosis (4) Secondary pulmonary arterial hypertension: CODE(S): I27.21 - Secondary pulmonary arterial hypertension (5) Essential (primary) hypertension: CODE(S): I10 - Essential (primary) hypertension (6) HLD (hyperlipidemia): CODE(S): E78.5 - Hyperlipidemia, unspecified (7) Left ventricular diastolic dysfunction: CODE(S): I51.9 - Heart disease, unspecified (8) History of pulmonary embolism: CODE(S): Z86.711 - Personal history of pulmonary embolism (9) History of deep vein thrombosis of lower extremity: CODE(S): Z86.718 - Personal history of other venous thrombosis and embolism (10) Obesity: CODE(S): E66.9 - Obesity, unspecified (11) Iron deficiency anemia due to chronic blood loss: CODE(S): D50.0 - Iron deficiency anemia secondary to blood loss (chronic) (12) Anemia of chronic renal failure, stage 3 (moderate): CODE(S): N18.30 - Chronic kidney disease, stage 3 unspecified; D63.1 - Anemia in chronic kidney disease QUALIFIERS: Chronic kidney disease stage 3 subtype: stage 3a (GFR 45-59) Qualified Code(s): N18.31 - Chronic kidney disease, stage 3a; D63.1 - Anemia in chronic kidney disease (13) Chronic asthma: CODE(S): J45.909 - Unspecified asthma, uncomplicated (14) Rheumatoid arthritis: CODE(S): M06.9 - Rheumatoid arthritis, unspecified (15) GERD (gastroesophageal reflux disease): CODE(S): K21.9 - Gastro-esophageal reflux disease without esophagitis (16) Hypothyroidism: CODE(S): E03.9 - Hypothyroidism, unspecified (17) History of prostate cancer: CODE(S): Z85.46 - Personal history of malignant neoplasm of prostate (18) Diverticulosis: CODE(S): K57.90 - Diverticulosis of intestine, part unspecified, without perforation or abscess without bleeding (19) Degenerative joint disease of knee, right: CODE(S): M17.11 - Unilateral primary osteoarthritis, right knee (20) Gout: CODE(S): M10.9 - Gout, unspecified (21) History of hernia repair: CODE(S): Z98.890 - Other specified postprocedural states; Z87.19 - Personal history of other diseases of the digestive system (22) History of prostatectomy: CODE(S): Z90.79 - Acquired absence of other genital organ(s) (23) History of total knee replacement: CODE(S): Z96.659 - Presence of unspecified artificial knee joint (24) History of appendectomy: CODE(S): Z90.49 - Acquired absence of other specified parts of digestive tract (25) History of total left hip replacement: CODE(S): Z96.642 - Presence of left artificial hip joint PLAN: Plan This is an 81-year-old male who presented with a traumatic wound on the left posterior calf. The wound had been present for approximately 3 weeks. Nutritional optimization has been recommended. A noninvasive lower extremity arterial study was performed on March 27, 2022, which revealed evidence of arterial calcification at multiple levels bilaterally, but no evidence of significant arterial occlusive disease in the lower extremities bilaterally. Recent laboratory studies have been done, and have been reviewed herein. Consideration has been given to surgical unroofing and debridement in the operating room setting, but recent improvements in the status of the wound suggested that this may not be necessary. At this time, it is noted that the patient's left posterior calf wound is completely healed and epithelialized. As result, the patient is to be discharged, and will follow-up henceforth on an as-needed basis. Total time: 25 minutes
== END 2022-05-07 16:36 | disposition home or self-care (01) ==
LOC: WC 10:15
PROVIDERS: PCP Internal Medicine; Referring Provider Surgery; Visit Provider Surgery
DX: S81.832A Puncture wound without foreign body, left lower leg, initial encounter (principal); L97.222 Non-pressure chronic ulcer of left calf with fat layer exposed; N18.31 Chronic kidney disease, stage 3a; J45.909 Unspecified asthma, uncomplicated; E78.5 Hyperlipidemia, unspecified; E03.9 Hypothyroidism, unspecified; I12.9 Hypertensive chronic kidney disease with stage 1 through stage 4 chronic kidney disease, or unspecified chronic kidney disease; E66.9 Obesity, unspecified; D63.1 Anemia in chronic kidney disease; K21.9 Gastro-esophageal reflux disease without esophagitis; W26.8XXA Contact with other sharp object(s), not elsewhere classified, initial encounter; Z79.899 Other long term (current) drug therapy; Z79.890 Hormone replacement therapy; Z68.31 Body mass index [BMI] 31.0-31.9, adult
CPT/HCPCS: 11042; 99213; G0463

== ENCOUNTER → 2022-08-26 | Outpatient (CLI) | payer MEDICARE, SELFPAY ==
[2022-08-26 10:00] LABS: Bacteria 0 SEEN /hpf (None Seen); Mucous, Urine 0 SEEN /hpf (<or=2+); Red Blood Cells-Urine 0 SEEN /hpf (0-5); Squamous Epithelial Cells - UA 0 SEEN /hpf (0-5); White Blood Cells 0 SEEN /hpf (0-5)
[2022-08-26 10:12] LABS: Color, Urine Yellow (Yellow); Glucose, Dipstick Normal (Normal); Ketone-Dipstick Negative (Negative); Leukocyte Esterase-Dipstick Negative /ul (Negative); Nitrite-Dipstick Negative (Negative); Occult Blood-Urine Negative /ul (Negative); Protein-Dipstick Negative (Negative); Urine Bilirubin Dipstick Negative (Negative); Urine Clarity Clear (Clear); Urine Urobilinogen Normal (Normal)
== END | disposition home or self-care (01) ==
PROVIDERS: PCP Internal Medicine; Referring Provider Physician Assistant Medical; Visit Provider Physician Assistant Medical
DX: N39.0 Urinary tract infection, site not specified (principal); R39.9 Unspecified symptoms and signs involving the genitourinary system
CPT/HCPCS: 81001; 87077; 87086; 87088; 87186

== ENCOUNTER → 2022-09-05 | Outpatient (CLI) | payer MEDICARE, SELFPAY ==
[2022-09-05 12:55] LABS: Erythrocyte Sedimentation Rate 45 mm/hr (0-20)
[2022-09-05 13:17] LABS: Uric Acid 11.4 mg/dL (3.5-7.2)
== END | disposition home or self-care (01) ==
LOC: LAB 11:54
PROVIDERS: PCP Internal Medicine; Referring Provider Internal Medicine; Visit Provider Internal Medicine
DX: M10.9 Gout, unspecified (principal)
CPT/HCPCS: 36415; 84550; 85652

== ENCOUNTER → 2022-11-05 | Outpatient (CLI) | payer MEDICARE, SELFPAY ==
--- NOTE | 2022-11-05 13:55 | RAD_ITS ---
INDICATION: shortness of breath EXAMINATION/TECHNIQUE: X-RAY - XR Chest 2 Views COMPARISON: February 22, 2022. FINDINGS: LINES/DEVICES: None. LUNGS: Unchanged bilateral calcified pleural plaque. Hyperexpanded lungs with chronic bilateral basilar predominant interstitial thickening. No consolidation or florid edema. Trace effusions on lateral view. No pneumothorax. MEDIASTINUM AND CARDIOVASCULAR STRUCTURES: Cardiac silhouette not enlarged. BONES AND SOFT TISSUES: Thoracolumbar spondylosis with lateral curvature. Left humeral head surgical anchors present. RAD/Chest PA and Lateral IMPRESSION: Findings compatible with chronic obstructive pulmonary disease Chronic calcified pleural plaque Bilateral basilar thickening which may represent mild edema or interstitial lung disease. Trace dependent effusions. Electronically Signed: Jv Pierce MD at 10:31 EDT ,
[2022-11-05 14:05] LABS: Anion Gap 7 (5-15); BUN 26 mg/dL (7-18); BUN/Creat Ratio 19.8 RATIO (10-20); Calcium,Total 9.1 mg/dL (8.5-10.1); Chloride 106 mmol/L (98-107); Creatinine, Serum 1.31 mg/dL (0.70-1.30); EST Glomerular Filtration Rate 55 mL/min (>60); Est Glom Filt Rate - Afr Amer 67 mL/min (>60); Glucose 124 mg/dL (74-106); Sodium Level 136 mmol/L (136-145)
[2022-11-05 14:08] LABS: BNP,B-Type NATRIURETIC PEPTIDE 89.1 pg/mL (0-100)
== END | disposition home or self-care (01) ==
PROVIDERS: PCP Internal Medicine; Referring Provider Nurse Practitioner Acute Care; Visit Provider Nurse Practitioner Acute Care
DX: R06.00 Dyspnea, unspecified (principal)
CPT/HCPCS: 36415; 71046; 80048; 83880

== ENCOUNTER → 2022-11-29 | Outpatient (CLI) | payer MEDICARE, SELFPAY ==
--- NOTE | 2022-11-29 10:45 | RAD_ITS ---
INDICATION: Dyspnea EXAMINATION/TECHNIQUE: X-RAY - XR Chest 2 Views COMPARISON: 11/05/2022 FINDINGS: LINES/DEVICES: None. LUNGS: Stable hyperinflation with coarsening of interstitial markings and bilateral calcified pleural plaques. No consolidations or vascular congestion. On lateral view minimal blunting of the posterior sulcus is again noted. MEDIASTINUM AND CARDIOVASCULAR STRUCTURES: Cardiac silhouette not enlarged. Central airways and mediastinal contour are unremarkable. BONES AND SOFT TISSUES: No acute changes. RAD/Chest PA and Lateral IMPRESSION: No radiographic evidence of acute cardiopulmonary disease. Findings consistent with COPD. Electronically Signed: Anirudh Lawson MD at 19:54 EDT ,
== END | disposition home or self-care (01) ==
LOC: RAD 10:42
PROVIDERS: PCP Internal Medicine; Referring Provider Nurse Practitioner Gerontology; Visit Provider Nurse Practitioner Gerontology
DX: R06.00 Dyspnea, unspecified (principal)
CPT/HCPCS: 71046

== ENCOUNTER → 2022-11-30 | Outpatient (CLI) | payer MEDICARE, SELFPAY ==
[2022-11-30 09:57] LABS: Absolute Lymphocyte Count 0.59 X10^3/uL (0.83-4.51); Absolute Neutrophil Count 6.9 X10^3/uL (2.0-7.7); Basophil# 0.02 X10^3/uL; Basophil% 0.2 % (0-1); Eosinophils% 1.2 % (0-5); Hematocrit 35.2 % (40-54); Hemoglobin 11.5 g/dL (13.0-16.5); Lymphocyte # 0.59 X10^3/ul (0.83-4.51); Mean Corp Hgb Conc 32.7 g/dL (32-36); Mean Corpuscular Hgb 29.4 pg (27.0-32.0); Mean Platelet Vol. 9.2 fl (6.2-12.0); Monocyte# 0.74 X10^3/uL; Monocyte% 8.8 % (0-10); NRBC Flagged by Analyzer 0 % (0-5); Neutrophil # 6.89 X10^3/uL (2.7-7.7); Neutrophil % 81.8 % (47-70); POSITIVE DIFFERENTIAL YES; Platelet Count 224 K/mm3 (150-450); RBC Distribution Width SD 49.1 fl (35.1-43.9); Red Blood Count 3.91 M/mm3 (4.6-6.2); White Blood Count 8.4 K/mm3 (4.4-11.0)
[2022-11-30 10:04] LABS: Differential Indicated SCAN CRITERIA MET
[2022-11-30 10:19] LABS: BNP,B-Type NATRIURETIC PEPTIDE 59.4 pg/mL (0-100)
[2022-11-30 10:36] LABS: AST(SGOT) 22 U/L (15-37); Alanine Aminotransfer ALT/SGPT 24 U/L (16-61); Alkaline Phosphatase 107 U/L (45-117); Anion Gap 4 (5-15); BUN 29 mg/dL (7-18); BUN/Creat Ratio 20.4 RATIO (10-20); Bilirubin, Direct 0.16 mg/dL (0.00-0.30); Calcium,Total 8.6 mg/dL (8.5-10.1); Chloride 110 mmol/L (98-107); Cholesterol 165 mg/dL (200); Creatinine, Serum 1.42 mg/dL (0.70-1.30); EST Glomerular Filtration Rate 51 mL/min (>60); Est Glom Filt Rate - Afr Amer 61 mL/min (>60); Globulin 4.8 g/dL (2.2-4.2); Glucose 134 mg/dL (74-106); High Density Lipoprotein 57 mg/dL; Potassium 4.1 mmol/L (3.5-5.1); Protein, Total 7.8 g/dL (6.4-8.2); Sodium Level 139 mmol/L (136-145); Triglycerides 106 mg/dL; Very Low Density Lipoprotein 21 mg/dL (5-40)
[2022-11-30 11:23] LABS: Anisocytosis RARE; Platelet Estimate ADEQUATE (ADEQ)
== END | disposition home or self-care (01) ==
LOC: LAB 09:23
PROVIDERS: PCP Internal Medicine; Referring Provider Nurse Practitioner Gerontology; Visit Provider Nurse Practitioner Gerontology
DX: R73.9 Hyperglycemia, unspecified (principal); N18.31 Chronic kidney disease, stage 3a; M10.9 Gout, unspecified; J20.9 Acute bronchitis, unspecified; I12.9 Hypertensive chronic kidney disease with stage 1 through stage 4 chronic kidney disease, or unspecified chronic kidney disease; E66.9 Obesity, unspecified; K21.9 Gastro-esophageal reflux disease without esophagitis; E03.9 Hypothyroidism, unspecified; D63.1 Anemia in chronic kidney disease; R06.00 Dyspnea, unspecified
CPT/HCPCS: 36415; 80048; 80061; 80076; 83036; 83880; 85025

== ENCOUNTER → 2022-12-17 | Outpatient (CLI) | payer MEDICARE, SELFPAY ==
--- NOTE | 2022-12-18 05:46 | PFTCOMP_ITS ---
COMPLETE PULMONARY FUNCTION TEST INTERPRETATION Brief HPI: Patient is an 82-year-old male, currently under the care of Jessica De La Cruz, who presents to [facility] for complete pulmonary function tests secondary to diagnosis of dyspnea. Respiratory therapist reports good effort and reproducible results. Interpretation: Forced expiration spirometry shows a mild large airways obstructive ventilatory defect with an FEV1 of 77% predicted. There is no significant bronchodilator response by strict ATS criteria. Spirograms are of good quality and plateau slowly, indicating slowly emptying areas of the lungs. The respiratory flow volume loop shows decreased expiratory flow rates at all lung volumes consistent with airway obstruction. Lung volumes by body plethysmography show a normal total lung capacity at 5.93 L, 94% predicted. All other lung volumes are within normal limits. Diffusion capacity by carbon monoxide is decreased at 54% predicted. The airway resistance is normal. No previous pulmonary function tests were available for review. Impression: Irreversible mild large airways obstructive ventilatory defect with a disproportionate reduction in diffusion capacity
== END | disposition home or self-care (01) ==
PROVIDERS: PCP Internal Medicine; Referring Provider Nurse Practitioner Acute Care; Visit Provider Nurse Practitioner Acute Care
DX: R06.00 Dyspnea, unspecified (principal)
CPT/HCPCS: 94060; 94726; 94729

== ENCOUNTER → 2022-12-23 | Outpatient (CLI) | payer MEDICARE, SELFPAY ==
--- NOTE | 2022-12-23 13:41 | ECHOD_ITS ---
Version 2 Reason For Study: Procedure This was a 2D Doppler, Color Flow transthoracic echocardiogram. Exam performed in department. Left Ventricle Normal LV size. Left ventricular systolic function is normal. The estimated ejection fraction is 60 %. Stage 1 diastolic dysfunction. No regional wall motion abnormalities noted. Right Ventricle Normal RV size. Normal systolic function. Atria Normal left atrium. Normal right atrium. Mitral Valve Normal mitral valve. Tricuspid Valve Normal tricuspid valve. Moderate (2+) tricuspid valve insufficiency. Pulmonary artery systolic pressure is 56 mmHg. Moderate pulmonary hypertension. Aortic Valve Trisinus/trileaflet aortic valve. Moderate focal aortic valve calcification. Peak aortic valve gradient 59 mmHg. Mean aortic valve gradient 39 mmHg. Moderate to severe aortic stenosis. Pulmonic Valve Normal pulmonic valve. Great Vessels Normal aortic root. The pulmonary artery is normal size. Normal inferior vena cava. Pericardium/Pleural No pericardial effusion. MMode/2D Measurements & Calculations LVIDd: 4.2 cm IVSd: 1.2 cm LVOT diam: 2.0 cm LVIDs: 2.7 cm LVPWd: 1.2 cm LVOT area: 3.0 cm2 RVDd: 3.9 cm FS: 36.8 % Ao root diam: 3.3 cm LAV(MOD-bp): 56.5 ml LVAd ap4: 23.7 cm2 ACS: 0.61 cm LAV(MOD-bp) Indexed: 29.2 ml/m2 LVLd ap4: 7.4 cm LAV(MOD-sp2): 64.6 ml EDV(MOD-sp4): 63.2 ml LAV(MOD-sp4): 49.7 ml EDV(sp4-el): 64.9 ml LVAs ap4: 12.0 cm2 LVLs ap4: 6.1 cm ESV(MOD-sp4): 19.6 ml ESV(sp4-el): 20.0 ml EF(MOD-sp4): 68.9 % EF(sp4-el): 69.2 % SV(MOD-sp4): 43.6 ml SV(sp4-el): 44.9 ml LA A4 area: 19.0 cm2 LA dimension(2D): 4.2 cm RA A4 area: 14.4 cm2 TAPSE: 2.8 cm Time Measurements MV dec time: 0.35 sec Doppler Measurements & Calculations MV E max noah: 159.1 cm/sec Lat Peak E' Noah: 5.8 cm/sec Med Peak E' Noah: 5.2 cm/sec MV A max noah: 178.8 cm/sec E/E' lat: 27.5 E/E' med: 30.4 MV E/A: 0.89 MV V2 max: 190.6 cm/sec Ao V2 max: 383.4 cm/sec MV max P.6 mmHg MV dec slope: 451.5 cm/sec2 Ao max P.8 mmHg MV V2 mean: 129.7 cm/sec Ao V2 mean: 300.9 cm/sec MV mean P.4 mmHg Ao mean P.6 mmHg MV V2 VTI: 49.4 cm Ao V2 VTI: 87.1 cm AV (velocity ratio): 0.30 MVA(VTI): 1.6 cm2 FABY(I,D): 0.89 cm2 FABY(V,D): 0.84 cm2 LV V1 max: 107.5 cm/sec SV(LVOT): 77.5 ml PA V2 max: 76.2 cm/sec LV V1 max P.6 mmHg LV V1 mean P.0 mmHg LV V1 mean: 83.9 cm/sec LV V1 VTI: 25.8 cm TR max noah: 355.6 cm/sec TR max P.6 mmHg ECHO/Echo Complete Interpretation Summary Normal LV size. Left ventricular systolic function is normal. The estimated ejection fraction is 60 %. Stage 1 diastolic dysfunction. Moderate focal aortic valve calcification. Mean aortic valve gradient 39 mmHg. Moderate to severe aortic stenosis. Compared to the previous the is worse. Moderate pulmonary hypertension. Ordering Physician: Monet Longoria Referring Physician: Angelique Grossman Performed By: Tania Colindres RDCS, RVT
== END | disposition home or self-care (01) ==
LOC: CVS 13:37
PROVIDERS: PCP Internal Medicine; Referring Provider Nurse Practitioner Gerontology; Visit Provider Nurse Practitioner Gerontology
DX: I35.0 Nonrheumatic aortic (valve) stenosis (principal)
CPT/HCPCS: 93306

== ENCOUNTER → 2022-12-26 | Outpatient (CLI) | payer MEDICARE, SELFPAY ==
[2022-12-26 12:53] VITALS: PULSE 102; PULSE 103; PULSE 111; PULSE 118; PULSE 121; PULSE 123; O2SAT 90; O2SAT 91; O2SAT 92; O2SAT 93; O2SAT 94; O2SAT 96
--- NOTE | 2022-12-27 10:15 | PCM.PSN.6M ---
PSN 6 Minute Walk Test 6 Minute Walk Test 6 Minute Walk Test: 6 Minute Walk Test PSN:6-Minute Walk Test Start: 12/26/22 12:53 Freq: Status: Active Protocol: [id number].[id number] Document 12/26/22 12:53 GAVINO (Rec: 12/26/22 12:55 GAVINO [id number]) 6 Minute Walk Test Date Performed 12/26/22 Time Performed 12:30 Height 5 ft 6 in Weight: 182 lb Weight in Pounds 182.[address]: Jessica De La Cruz [employer] Assistive device used: None Pre-test Oxygen Delivery Method Room Air Pulse Ox 93 Pulse Rate (60-100) 102 H Dyspnea Polina Scale (0-10) 0.5 Exertion Polina Scale (6-20) 6 1st minute Oxygen Delivery Method Room Air Pulse Ox 94 Pulse Rate (60-100) 111 H 2nd minute Oxygen Delivery Method Room Air Pulse Ox 92 Pulse Rate (60-100) 118 H 3rd minute Oxygen Delivery Method Room Air Pulse Ox 93 Pulse Rate (60-100) 121 H 4th minute Oxygen Delivery Method Room Air Pulse Ox 92 Pulse Rate (60-100) 121 H 5th minute Oxygen Delivery Method Room Air Pulse Ox 91 Pulse Rate (60-100) 123 H 6th minute Oxygen Delivery Method Room Air Pulse Ox 90 Pulse Rate (60-100) 121 H Dyspnea Polina Scale (0-10) 3 Exertion Polina Scale (6-20) 12 Post-test Oxygen Delivery Method Room Air Pulse Ox 96 Pulse Rate (60-100) 103 H Full Laps Walked 14 Partial Lap, Number of Tiles Walked 5 Total Distance Walked (ft) 831 Interpretation Interpretation: The patient ambulated 831 feet over the course of 6 minutes beginning on room air without assistive devices. Pretesting oxygen saturation was noted to be 93% on room air. With ambulation, the carlin oxygen saturation was 90%. There was no significant exertional oxygen desaturation. Recommendations Recommendations: There is no indication for the use of supplemental oxygen at this time.
== END | disposition home or self-care (01) ==
LOC: PSN 12:28
PROVIDERS: PCP Internal Medicine; Visit Provider Nurse Practitioner Acute Care
DX: R06.00 Dyspnea, unspecified (principal)
CPT/HCPCS: 94618

== ENCOUNTER 2023-01-10 10:29 | Emergency (ER) | payer MEDICARE, SELFPAY ==
[2023-01-10 10:31] VITALS: BP 142/82; PULSE 88; RESP 14; TEMP 36.6; O2SAT 98; BMI 30.7
--- NOTE | 2023-01-10 10:40 | VDLE_ITS ---
Reason For Study: RLE Pain RIGHT LEFT GSV is normal. CFV is compressible, spontaneous, phasic, CFV is compressible, spontaneous, phasic, competent, and demonstrates normal competent and demonstrates normal augmentation. augmentation. FV is compressible, spontaneous, phasic, competent and demonstrates normal augmentation. POP V is compressible, spontaneous, phasic, competent and demonstrates normal augmentation. T/P Trunk is compressible. PTV is compressible. RT PerV is compressible. Procedure This is a venous duplex using B-mode, color flow and spectral Doppler. Exam performed in department. The exam was diagnostic. A preliminary report was called and/or faxed to Dr. Cavanaugh and Claudio ZAZUETA RN. VL/Venous Duplex US, Unilateral Interpretation Summary There is no evidence of right lower extremity deep vein thrombosis. Right great saphenous vein appears patent and compressible segmentally. Flow patterns left common femoral vein Ordering Physician: Lon Cavanaugh Referring Physician: Angelique Grossman M.D. Performed By: Kiko Baez RVT
--- NOTE | 2023-01-10 10:42 | ED.VIS.LOWEX ---
HPI History of Present Illness Chief Complaint: Lower Extremity Injury Detail of Chief Complaint: Pain and swelling right lower extremity Informant: patient Occured/Mechanism Mechanism/Context: Yes injury and Yes blunt trauma Comment: Patient states she had a gouged right calf 2 weeks ago. He has had increased welling of the leg. He was unaware that was read. He does complain of pain. Denies history of PE or DVT. He states he is not on anticoagulant. Onset/Context/Timing Onset: Days Context: Sudden Onset Timing: Continuous Quality of Pain: Dull Location: Right calf Current Severity: Mild Maximum Severity: Moderate Worsened by: Palpation and ambulation Relieved by: Nothing Associated Symptoms Associated Symptoms: Negative for Parasthesia, Weakness or Loss of Funtion Narrative Narrative: Patient is an 82-year-old male who presents with swelling of his right lower extremity. Patient sustained injury 2 weeks ago. Has a significant defect which is healing by secondary intention. There is an eschar noted. There is erythema of the right calf. There is also significant swelling of the right lower extremity compared to the left. He denies fever, chills or night sweats. Denies drainage from the wound. He denies chest pain or shortness of breath. He states he has a bad right knee. 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, right Diverticulosis Diverticulosis Essential (primary) hypertension Gout Hay fever History of deep vein thrombosis of lower extremity HLD (hyperlipidemia) Hypothyroidism Iron deficiency anemia due to chronic blood loss Left ventricular diastolic dysfunction Leg wound, left Macular degeneration Non-pressure chronic ulcer of left calf with fat layer exposed Nonrheumatic aortic (valve) stenosis Osteoarthritis Pleural plaque Pulmonary nodule Right knee DJD Secondary pulmonary arterial hypertension Skin cancer Traumatic open wound of right lower leg with infection Venous ulcer with fat layer exposed Home Medications acetaminophen 500 mg tablet 1,000 mg PO BID PRN PRN Pain 12/04/18 [History Last Taken 12/03/18] epinephrine 0.3 mg/0.3 mL injection, auto-injector 0.3 mg IJ PRN PRN Anaphylaxis 12/04/18 [History Last Taken Unknown] multivitamin 1 tab PO QAM 04/19/19 [History Last Taken Unknown] sertraline 100 mg tablet 100 mg PO DAILY #90 tabs 06/10/22 [Rx Last Taken Unknown] fluticasone propionate 50 mcg/actuation nasal spray,suspension 2 spray intranasal DAILY #16 grams 06/27/22 [Rx Last Taken Unknown] chlorthalidone 25 mg tablet 25 mg PO DAILY #90 tabs 07/08/22 [Rx Last Taken Unknown] nystatin-triamcinolone 100,000 unit/g-0.1 % topical cream 1 applic topical BID PRN rash #30 grams 07/25/22 [Rx Last Taken Unknown] albuterol sulfate 2.5 mg/3 mL (0.083 %) solution for nebulization 2.5 mg (3 mL) inhalation Q6H #180 mL 08/01/22 [Rx Last Taken Unknown] levothyroxine 75 mcg tablet 75 mcg PO DAILY #90 tabs 08/12/22 [Rx Last Taken Unknown] fluticasone propionate 230 mcg-salmeterol 21 mcg/actuation HFA inhaler 2 puff inhalation BID #1 device 08/23/22 [Rx Last Taken Unknown] tiotropium bromide 2.5 mcg/actuation mist for inhalation (Spiriva Respimat) 2 puff inhalation QDAY #1 ea 08/23/22 [Rx Last Taken Unknown] montelukast 10 mg tablet 10 mg PO QPM #30 tabs 09/27/22 [Rx Last Taken Unknown] albuterol sulfate 90 mcg/actuation aerosol inhaler 2 puff inhalation Q4H PRN PRN Sob &/Or Wheezing #1 ea 10/29/22 [Rx Last Taken Unknown] ferrous sulfate 325 mg (65 mg iron) tablet (FeroSul) 325 mg PO DAILY 11/29/22 [History Last Taken Unknown] nitroglycerin 0.4 mg sublingual tablet 0.4 mg sublingual Q5-15M PRN CHEST PAIN #25 tabs 12/02/22 [Rx Last Taken Unknown] doxycycline hyclate 100 mg tablet 100 mg PO BID #20 tabs 01/01/23 [Rx Last Taken Unknown] famotidine 40 mg tablet 40 mg PO DAILY #90 tabs 01/02/23 [Rx Last Taken Unknown] amoxicillin 875 mg-potassium clavulanate 125 mg tablet 1 tab PO BID #20 tabs 01/07/23 [Rx Last Taken Unknown] doxycycline monohydrate 100 mg capsule 100 mg PO BID #14 CAPSULES 01/10/23 [Rx Last Taken Unknown] Allergy/AdvReac Type Severity Reaction Status Date / Time indomethacin [From Indocin] AdvReac Intermediate Itching Verified 01/10/23 10:30 indomethacin sodium AdvReac Intermediate Itching Verified 01/10/23 10:30 [From Indocin] oxycodone HCl [From Percocet] AdvReac Intermediate Itching Verified 01/10/23 10:30 Family History Father Heart disease Colon cancer Sister Diabetes Mother Breast cancer Surgical History H/O hernia repair H/O prostatectomy H/O shoulder surgery H/O total knee replacement History of appendectomy History of appendectomy History of carpal tunnel surgery History of hernia repair History of left heart catheterization (02/25/22) History of prostatectomy History of total knee replacement History of total left hip replacement History of total left hip replacement Social History household members: spouse housing: house Smoking Status: Never smoker second hand exposure: Yes alcohol intake: current alcohol intake frequency: holidays/special occasions only Alcohol type: beer substance use type: does not use caffeine: Yes Type: coffee Number of servings: 2 what type of physical activity do you participate in: walking frequency: daily giancarlo/episcopal: Orthodox seatbelt use: always do you feel safe at home: Yes ROS ROS ED Constitutional Constitutional ED: Denies chills, fever(s), subjective, sweats or weight loss Eyes Eyes: Denies change in vision or diplopia ENT ENT ED: Denies ear pain or rhinorrhea Cardiovascular Cardiovascular: Denies chest pain, palpitations or racing heartbeat Respiratory/Chest Respiratory/Chest: Denies cough, dyspnea or dyspnea on exertion Gastrointestinal Gastrointestinal: Denies abdominal pain, nausea or vomiting Musculoskeletal Musculoskeletal: Denies arthralgias, back pain, myalgias or neck pain Integumentary Reports rash and other Details: Significant wound right calf. Neurologic Neurologic: Denies paresthesias or weakness Endocrine Endocrinology: Denies polydipsia, polyphagia or polyuria Hematologic/Lymphatic Hematologic/Lymphatic: Reports other Details: Patient is not on anticoagulant. ; Denies easy bleeding or easy bruising EXAM Physical Exam Const Vital Signs: 01/10/23 10:31 Temperature 98 F Temperature Source Temporal Pulse Rate 88 Respiratory Rate 14 Blood Pressure 142/82 H Blood Pressure Mean 102 Pulse Ox 98 Oxygen Delivery Method Room Air Positive well nourished, well developed, obese and unkempt General Appearance ED: unkempt, well developed and NAD Nutritional Appearance: obese HEENT Reports moist mucous membranes normocephalic and atraumatic Eyes PERRL Eyes Narrative: Extraocular muscles are intact. Sclera is anicteric. Conjunctive is pink. Neck full ROM and supple Chest Wall inspection of chest normal and palpation of chest normal Resp normal respiratory effort, no retractions and clear to auscultation bilaterally Cardio regular rate, regular rhythm, S1 normal heart sound, S2 normal heart sound and no murmurs GI non-tender, non-distended and no masses GI Narrative: There is no inguinal lymphadenopathy. Extremity Negative for normal to inspection Extremity Narrative: She has edema of both legs. The right leg is markedly swollen in comparison to the left. There is slight warmth and erythema posteriorly. There is a large eschar noted. There is no lymphangitis. There is no popliteal lymphadenopathy. There is no area of fluctuance. Unable to appreciate DP or PT pulse because of the amount of edema. General Extremety ED: Negative for cyanosis General Extremity: Negative for cyanosis Neuro oriented x3, CN's II-XII intact bilaterally and moves all extremities Sensorium / Orientation: alert Plantar Reflex: Downgoing: bilateral Psych mental status grossly normal Appearance: unkempt Skin No no wounds Skin Narrative: Documented under the extremity portion of the EMR. Rashes: No no rashes MDM MDM MDM Narrative Medical decision making narrative: Concern patient at minimum has an infection. Also need to evaluate for possible DVT since he has pain along the distribution deep venous system with a markedly swollen right leg that is painful. CBC was obtained assess white count differential. BMP to assess renal function in the event that patient's antibiotic doses would need to be adjusted. History & Record Review Additional record(s) reviewed:: Prior ED visit and Prior labs Lab Data Attestation: I reviewed the patient's lab results. Lab results narrative: CBC is remarkable for mild anemia. Indices. Renal function is abnormal with a GFR of 47. BUN was 27 with creatinine 1.51. Labs: Laboratory Results - last 24 hr 01/10/23 10:45 WBC 5.9 RBC 3.93 L Hgb 11.9 L Hct 35.8 L MCV 91.1 MCH 30.3 MCHC 33.2 RDW Std Deviation 50.6 H RDW Coeff of John 15.2 H Plt Count 190 MPV 9.5 Immature Gran % (Auto) 1.200 H Neut % (Auto) 74.8 H Lymph % (Auto) 12.1 L [place] % (Auto) 9.9 Eos % (Auto) 1.7 Baso % (Auto) 0.3 Absolute Neuts (auto) 4.4 Absolute Lymphs (auto) 0.71 L Nucleated RBC % 0 Sodium 140 Potassium 3.7 Chloride 111 H Carbon Dioxide 24.0 Anion Gap 5 BUN 27 H Creatinine 1.51 H Estim Creat Clear Calc 32.86 Est GFR (MDRD) Af Amer 57 L Est GFR (MDRD) Non-Af 47 L BUN/Creatinine Ratio 17.9 Glucose 97 Calcium 8.5 Treatment and Re-Evaluation Narrative: Venous duplex study was negative. There is significant edema noted. There is no fluid collection. We will treat patient with doxycycline since this will not require dose adjustment for renal insufficiency. Patient was instructed follow-up with his doctor. Discharge Plan Triage Chief Complaint: Lower Extremity Injury ED Provider: Lon Cavanaugh Dx/Rx/DC Orders Clinical Impression: Lymphedema, Cellulitis of right lower extremity without foot, Anemia of chronic illness, Chronic kidney disease Instructions: ED Cellulitis, ED Peripheral Edema, Bilateral Prescriptions: New doxycycline monohydrate 100 mg capsule 100 mg PO BID Qty: 14 0RF No Action multivitamin Tablet 1 tab PO QAM montelukast 10 mg tablet 10 mg PO QPM Qty: 30 3RF ferrous sulfate [FeroSul] 325 mg (65 mg iron) tablet 325 mg PO DAILY doxycycline hyclate 100 mg tablet 100 mg PO BID Qty: 20 0RF Rx Instructions: Take on empty stomach with couple of crackers and small amount of water. Do not take with milk or dairy. amoxicillin-pot clavulanate 875-125 mg tablet 1 tab PO BID Qty: 20 0RF epinephrine 0.3 MG/0.3 ML auto-injector 0.3 mg IJ PRN PRN (Reason: Anaphylaxis) acetaminophen 500 MG tablet 1,000 mg PO BID PRN PRN (Reason: Pain) sertraline 100 mg tablet 100 mg PO DAILY Qty: 90 1RF fluticasone propionate 50 mcg/actuation spray,suspension 2 spray intranasal DAILY Qty: 16 3RF chlorthalidone 25 mg tablet 25 mg PO DAILY Qty: 90 3RF nystatin-triamcinolone 100,000-0.1 unit/g-% cream 1 applic topical BID PRN (Reason: rash) Qty: 30 1RF albuterol sulfate 2.5 mg /3 mL (0.083 %) solution for nebulization 2.5 mg INHALATION Q6H Qty: 180 3RF levothyroxine 75 mcg tablet 75 mcg PO DAILY Qty: 90 3RF fluticasone propion-salmeterol 230-21 mcg/actuation HFA aerosol inhaler 2 puff INHALATION BID Qty: 1 11RF Spiriva Respimat 2.5 mcg/actuation mist 2 puff INHALATION QDAY Qty: 1 11RF albuterol sulfate 90 mcg/actuation HFA aerosol inhaler 2 puff INHALATION Q4H PRN PRN (Reason: Sob &/Or Wheezing) Qty: 1 6RF nitroglycerin 0.4 mg tablet, sublingual 0.4 mg sublingual Q5-15M PRN (Reason: CHEST PAIN) Qty: 25 3RF famotidine 40 mg tablet 40 mg PO DAILY Qty: 90 3RF Primary Care Provider: Angelique Grossman Referrals: Angelique Grossman MD [Primary Care Provider] - 3-5 Days Activity Restrictions/Additional Instructions: 1. Return if temperature greater than 100, shaking chills or colored drainage from your wound 2. Take antibiotics until gone 3. You need to be more active to help decrease the swelling. If this does not work he will need to see Dr. Doss for possible referral to wound clinic or lymphedema clinic. Disposition Disposition: Home, Self Care
[2023-01-10 10:55] LABS: Absolute Lymphocyte Count 0.71 X10^3/uL (0.83-4.51); Absolute Neutrophil Count 4.4 X10^3/uL (2.0-7.7); Basophil# 0.02 X10^3/uL; Basophil% 0.3 % (0-1); Eosinophils% 1.7 % (0-5); Hematocrit 35.8 % (40-54); Hemoglobin 11.9 g/dL (13.0-16.5); Lymphocyte # 0.71 X10^3/ul (0.83-4.51); Lymphocyte % 12.1 % (19-41); Mean Corp Hgb Conc 33.2 g/dL (32-36); Mean Corpuscular Hgb 30.3 pg (27.0-32.0); Mean Corpuscular Volume 91.1 fL (80-94); Mean Platelet Vol. 9.5 fl (6.2-12.0); Monocyte# 0.58 X10^3/uL; Monocyte% 9.9 % (0-10); NRBC Flagged by Analyzer 0 % (0-5); Neutrophil # 4.38 X10^3/uL (2.7-7.7); Neutrophil % 74.8 % (47-70); Platelet Count 190 K/mm3 (150-450); RBC Distribution Width CV 15.2 % (11.6-14.6); RBC Distribution Width SD 50.6 fl (35.1-43.9); Red Blood Count 3.93 M/mm3 (4.6-6.2); White Blood Count 5.9 K/mm3 (4.4-11.0)
[2023-01-10 11:08] LABS: Anion Gap 5 (5-15); BUN 27 mg/dL (7-18); BUN/Creat Ratio 17.9 RATIO (10-20); Calcium,Total 8.5 mg/dL (8.5-10.1); Chloride 111 mmol/L (98-107); Creatinine, Serum 1.51 mg/dL (0.70-1.30); EST Glomerular Filtration Rate 47 mL/min (>60); Est Glom Filt Rate - Afr Amer 57 mL/min (>60); Estimated Creatinine Clearance 32.86 ml/min; Glucose 97 mg/dL (74-106); Potassium 3.7 mmol/L (3.5-5.1); Sodium Level 140 mmol/L (136-145)
[2023-01-10] MEDS: Doxycycline 100 MG CAPSULE PO (11:28)
== END 2023-01-10 11:31 | disposition home or self-care (01) ==
LOC: ED 11:26
PROVIDERS: Emergency Provider Emergency Medicine; PCP Internal Medicine; Visit Provider Emergency Medicine
DX: I89.0 Lymphedema, not elsewhere classified (principal); N18.30 Chronic kidney disease, stage 3 unspecified; L03.115 Cellulitis of right lower limb; D63.8 Anemia in other chronic diseases classified elsewhere; E66.9 Obesity, unspecified
CPT/HCPCS: 80048; 85025; 93971; 99284; A4216

== ENCOUNTER 2023-01-27 06:44 | Day surgery (SDC) | payer MEDICARE, SELFPAY ==
--- NOTE | 2022-12-30 14:52 | HP.PCM_ITS ---
History and Physical Date of Admission: 01/27/23 This is a 82-year-old gentleman who presents here today for a cardiac catheterization. He has a history of moderate aortic stenosis, hypertension, hyperlipidemia and pulmonary hypertension. He also has a history of a chronic anemia for which she has been followed by the oncologist. In February, he had complained about shortness of breath with exertion and also some with rest. He did have pulmonary function test performed in January 2022 which demonstrated a reversible mild mixed ventilatory defect. A 6-minute walk test demonstrated no significant exertional oxygen desaturation. An echocardiogram performed in August of this year demonstrated preserved ejection fraction of 60%, stage II diastolic dysfunction, and a mean aortic valve gradient of 32 mmHg suggesting moderate aortic stenosis. A previous stress test in 2018 did not demonstrate any evidence of ischemia. He underwent a cardiac catheterization in February of 2022 which demonstrated mild luminal irregularities and moderate to severe aortic valve stenosis. His repeat echocardiogram from 02/25/2022 demonstrated m oderate aortic valve stenosis. His echocardiogram from 12/23/2022 demonstrated worsening of his aortic valve stenosis-moderate to severe. From a cardiac standpoint, the patient is doing well. He denies any palpitations, chest pain, pressure or heaviness. He does have occasional SOB with exertion-he attributes this to his asthma. He states that this may be slightly worse. He does acknowledge relief with his inhaler. He denies Orthopnea, and PND. He does not have bleeding issues; no blood in urine, stool or nosebleeds. He denies any decrease in energy level, myalgias, or claudication. He does not have edema, or sudden weight gain. He denies dizziness, lightheadedness, syncopal or near syncopal episodes, and headaches. 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, right Diverticulosis Diverticulosis Essential (primary) hypertension Gout Hay fever History of deep vein thrombosis of lower extremity HLD (hyperlipidemia) Hypothyroidism Iron deficiency anemia due to chronic blood loss Left ventricular diastolic dysfunction Leg wound, left Macular degeneration Non-pressure chronic ulcer of left calf with fat layer exposed Nonrheumatic aortic (valve) stenosis Osteoarthritis Pleural plaque Pulmonary nodule Right knee DJD Secondary pulmonary arterial hypertension Skin cancer Traumatic open wound of right lower leg with infection Venous ulcer with fat layer exposed Surgical History H/O hernia repair H/O prostatectomy H/O shoulder surgery H/O total knee replacement History of appendectomy History of appendectomy History of carpal tunnel surgery History of hernia repair History of left heart catheterization (02/25/22) History of prostatectomy History of total knee replacement History of total left hip replacement History of total left hip replacement Family History Father Heart disease Colon cancerSister DiabetesMother Breast cancer Social History household members: spouse housing: house Smoking Status: Never smoker second hand exposure: No alcohol intake: current alcohol intake frequency: holidays/special occasions only Alcohol type: beer substance use type: does not use caffeine: Yes Type: coffee Number of servings: 2 what type of physical activity do you participate in: walking frequency: daily giancarlo/hoahaoism: Jehovah'S Witness seatbelt use: always do you feel safe at home: Yes ROS Const Const: Negative for fatigue, weakness, fever(s), headache(s), chills, frequent falls, weight gain or weight loss Eyes Eyes: Negative for blind spots, loss of peripheral vision, transient loss of vision, blurry vision, change in vision, double vision, floaters or tunnel vision ENT ENT: Negative for headache(s), dizziness, Nosebleed/epistaxis, balance problems or neck pain Cardio Chest Pain: No Palpitations: No Edema: None Muscle aches with walking: None Resp Respiratory: Positive for SOB with activity (occasional SOB); Negative for SOB at rest or SOB orthopnea\SOB lying down GI GI: Negative nausea, vomiting, heartburn, bloating, vomiting blood/hematemesis, bright, red blood in stools or black,tarry stools Musc Musc: Negative for muscle aches/ myalgia, muscle weakness, joint pain or balance problems Neuro Neuro: Negative for dizziness, lightheadedness, near syncope, syncope, orthostatic symptoms, frequent falls, headache(s), weakness, blurry vision or double vision Duy Hematologic/Lymphatic: Negative for easy bleeding or easy bruising Endo Endo: Negative for fatigue Cardiology Exam Const Appearance: cooperative and no acute distress Nutritional Appearance: overweight Orientation: alert and oriented x3 Head Head: normal to inspection Ears: hearing grossly normal bilaterally Nose: external nose normal Face and Sinus: face symmetric Eyes General: appearance normal, both eyes and all related structures Eyelids: eyelids normal Conjunctivae: conjunctivae normal Pupils: PERRL and pupil size EOM: EOM intact bilaterally Neck Neck: normal visual inspection Carotids: Negative bruit Chest Chest inspection: normal inspection of the chest and normal respiratory effort Auscultation: Bilateral: Crackles Cardio Palpation: normal PMI Rate: regular rate Rhythm: regular rhythm Heart sounds: S1 normal, S2 normal and murmur; Negative rub or gallop Murmur: Grade 3/6, soft, LLSB, sternal notch and ROXY loudest at apex -> axilla GI GI: normal to inspection and soft Neuro General: patient alert, patient oriented x3 and CN's II-XI intact bilaterally Skin Skin: no rashes or lesions noted Extremities Pulses: Normal: Right Posterior Tibial Pulse, Left Posterior Tibial Pulse, Right Radial Pulse and Left Radial Pulse Lower Extremity Edema: +3: Bilateral Psych Psychological: normal affect Supplemental Info Supplemental Information Echocardiogram 12/23/2022: Interpretation Summary Normal LV size. Left ventricular systolic function is normal. The estimated ejection fraction is 60 %. Stage 1 diastolic dysfunction. Moderate focal aortic valve calcification. Mean aortic valve gradient 39 mmHg. Moderate to severe aortic stenosis. Compared to the previous the is worse. Moderate pulmonary hypertension. ECHOCARDIOGRAM 02/25/2022 Interpretation Summary Normal LV size. Left ventricular systolic function is normal. The estimated ejection fraction is 65 %. There is moderate to severe mitral annular calcification. Mild focal aortic valve calcification. Mean aortic valve gradient 26 mmHg. Moderate aortic stenosis. ? CARDIAC CATHETERIZATION 02/25/22 CONCLUSIONS Aortic Valve Stenosis- Moderate to severe aortic valve stenosis RECOMMENDATIONS Repeat echocardiogram and consider AVR if the mean gradient is close to 40 mmHg CORONARY ANGIOGRAPHY DOMINANCE:? 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 ? ECHOCARDIOGRAM 08/22/2021: Interpretation Summary Normal LV size. Left ventricular systolic function is normal. The estimated ejection fraction is 60 %. Stage 2 diastolic dysfunction. Mean aortic valve gradient 32 mmHg. Moderate aortic stenosis. Pulmonary artery systolic pressure is 40 mmHg. Contrast injection was performed. Assessment and Plan Assessment and Plan (1) Nonrheumatic aortic (valve) stenosis: Status: Chronic Plan: Patient has a history of nonrheumatic aortic valve stenosis. His cardiac catheterization from 02/25/2022 demonstrated moderate to severe aortic valve stenosis. His echocardiogram from 12/23/2022 demonstrated worsening of his aortic valves stenosis-moderate to severe. He will proceed with a cardiac catheterization to further assess this. Depending on results, further recommendations will be made.
[2023-01-21 10:40] LABS: Absolute Lymphocyte Count 0.77 X10^3/uL (0.83-4.51); Absolute Neutrophil Count 3.8 X10^3/uL (2.0-7.7); Basophil# 0.02 X10^3/uL; Basophil% 0.4 % (0-1); Eosinophil# 0.08 X10^3/uL; Eosinophils% 1.5 % (0-5); Hematocrit 36.3 % (40-54); Hemoglobin 11.7 g/dL (13.0-16.5); Lymphocyte # 0.77 X10^3/ul (0.83-4.51); Lymphocyte % 14.7 % (19-41); Mean Corp Hgb Conc 32.2 g/dL (32-36); Mean Corpuscular Hgb 29.3 pg (27.0-32.0); Mean Platelet Vol. 10.5 fl (6.2-12.0); Monocyte# 0.56 X10^3/uL; Monocyte% 10.7 % (0-10); NRBC Flagged by Analyzer 0 % (0-5); Neutrophil # 3.79 X10^3/uL (2.7-7.7); Neutrophil % 72.1 % (47-70); Platelet Count 207 K/mm3 (150-450); RBC Distribution Width SD 49.9 fl (35.1-43.9); Red Blood Count 3.99 M/mm3 (4.6-6.2); White Blood Count 5.3 K/mm3 (4.4-11.0)
[2023-01-21 11:24] LABS: Anion Gap 7 (5-15); BUN 31 mg/dL (7-18); BUN/Creat Ratio 20.9 RATIO (10-20); Calcium,Total 8.8 mg/dL (8.5-10.1); Chloride 109 mmol/L (98-107); Creatinine, Serum 1.48 mg/dL (0.70-1.30); EST Glomerular Filtration Rate 48 mL/min (>60); Est Glom Filt Rate - Afr Amer 58 mL/min (>60); Glucose 132 mg/dL (74-106); Sodium Level 139 mmol/L (136-145)
[2023-01-24 09:20] VITALS: BMI 30.2
--- NOTE | 2023-02-03 10:09 | CL.D_ITS ---
Patient Name: CARISSA VANG Study Date: 01/27/2023 Performing: Ke Garcia MD Ht: 66 inches 167.64 cm : 1940 Wt: 182.2 lbs 82.55 kg Age: 82 Gender: male BSA: 1.92 PROCEDURE(S) PERFORMED [id number])LHC/COR/LV CLINICAL PROFILE AND INDICATIONS Indications: Valvular Disease Heart Failure: NYHA Class: 2, Newly Diagnosed: Yes, Heart Failure Type: Diastolic Stress/Imaging Stress/Image Study Performed: No CAD Presentations: Other: SOB CONCLUSIONS Non obstructive coronary arteries Aortic Valve Calcification- Moderate Aortic Valve Stenosis- Moderate to severe aortic stenosis with pulmonary hypertension Hypertension RECOMMENDATIONS Referred for [facility] DESCRIPTION OF PROCEDURE The patient arrived to the procedure lab. The risks and benefits of the procedure as well as a full description of our services here and current unavailability of surgical backup were fully explained to the patient and/or their significant other prior to the catheterization. The Timeout was completed, verifying the correct patient and procedure. The patient's procedural site was prepped and draped in the usual fashion. Local anesthetic was given subcutaneously to right radial region with Lidocaine 2%. Local anesthetic was given subcutaneously to right groin region with Lidocaine 2%. Using a modified Seldinger technique, arterial access was obtained via the right radial artery, a 6Fr sheath was inserted., arterial access was obtained via the right femoral artery, a 5Fr sheath was inserted. Left Coronary Artery selective angiography was performed in multiple views using a 5 Fr. 4.0 Wolcott catheter. Right Coronary Artery selective angiography was then performed in multiple views using a 5 Fr. JR 4 catheter. Left Ventriculography was performed in GOMES projection using a 5 Fr. Pigtail catheter. LV to AO pullback pressures were then recorded.Contrast was injected through the sheath and the Right Iliac and Femoral artery were assessed for possible closure device.The arterial sheath was pulled and a Mynx closure device was deployed for hemostasis. The arterial sheath was pulled and a TR Band was applied for hemostasis w/ 14ml air CORONARY ANGIOGRAPHY DOMINANCE: Right Dominant LEFT HEART ASSESSMENT Left Ventricular Ejection Fraction: by LV Gram 60 % Normal LV wall motion Normal Left Ventricular systolic function Right Heart pressures - elevated LEFT MAIN: Mild calcification, No significant disease noted LEFT ANTERIOR DESCENDING ARTERY: Mild luminal irregularities less than 30% CIRCUMFLEX ARTERY: Mild luminal irregularities less than 30% RAMUS: Mild luminal irregularities less than 30% RIGHT CORONARY ARTERY: Mild luminal irregularities VALVE FINDINGS: Aortic Valve Stenosis - severe COMPLICATIONS No Complications PROCEDURE MEDICATIONS Versed 1 mg IV Fentanyl 50 mcg IV Aspirin (325mg) 1 Tabs PO @ 01/27/2023 07:28:40 Heparin given IA 01/27/2023 08:20:08 Verapamil 2.5mg, Ntg 100mcgs, 3000 units of Heparin given IA 01/27/2023 08:20:08 SUMMARY OF HEMODYNAMIC DATA Time AIR REST ECG 07:26:14 Art 119/62 (83) 08:24:22 AO 125/71 (93) SA 08:29:51 AO 146/81 (109) 08:42:55 LV 154/17, 28 08:45:51 LV 181/22, 32 08:46:07 LV 179/22, 32 08:46:46 LV 183/23, 34 08:46:53 LVp 184/22, 34 08:47:00 AOp 157/78 (112) 08:47:05 AIR REST 09:05:02 Signed By Ke Garcia MD On 02/03/2023 10:09:12 Ke Garcia MD
== END 2023-01-27 11:00 | disposition home or self-care (01) ==
PROVIDERS: Nurse Practitioner Gerontology; PCP Internal Medicine; Referring Provider Internal Medicine Cardiovascular Disease; Visit Provider Internal Medicine Cardiovascular Disease
DX: I35.0 Nonrheumatic aortic (valve) stenosis (principal); N18.30 Chronic kidney disease, stage 3 unspecified; I12.9 Hypertensive chronic kidney disease with stage 1 through stage 4 chronic kidney disease, or unspecified chronic kidney disease; E78.5 Hyperlipidemia, unspecified; E03.9 Hypothyroidism, unspecified; Z79.899 Other long term (current) drug therapy
CPT/HCPCS: 36415; 80048; 85025; 93458; 99152; 99153; C1760; C1769; C1894; Q9967

== ENCOUNTER 2023-01-30 20:01 | Inpatient (IN) | payer MEDICARE, SELFPAY ==
[2023-01-30] VITALS (10 sets, daily range): BP systolic 88–105; BP diastolic 47–71; PULSE 30–57; RESP 14–18; TEMP 36.1–36.9; O2SAT 96–99; BMI 24.6; BMI 27.9
--- NOTE | 2023-01-30 20:20 | CT_ITS ---
STUDY: CT BRAIN WITHOUT CONTRAST REASON FOR EXAM: Male, 82 years old. head injury RADIATION DOSAGE (If Supplied By Facility): CTDIvol = ( 44.99 ) mGy, DLP = ( 829.85 ) mGycm TECHNIQUE: Transaxial CT imaging of the brain was performed without administration of intravenous contrast material. Individualized dose optimization techniques were used for this CT. COMPARISON: No relevant priors. FINDINGS: Normal soft tissue structures. Normal calvarium. There is mild cerebral atrophy with widening of the extra-axial spaces and ventricular dilatation. Normal white matter tracts of the cerebral hemispheres. Normal basal ganglia and thalami. Normal brainstem. Normal cerebellum. There is no intracranial hemorrhage. There are no findings of an acute ischemic infarction. Mucosal thickening involving the left maxillary sinus, bilateral ethmoids, likely sequela of chronic sinusitis. CT/Brain/Head without Contrast IMPRESSION: Involutional changes otherwise normal unenhanced CT scan of the brain for patient''s age. Electronically Signed: Mariela Calloway MD at 20:57 EDT ,
--- NOTE | 2023-01-30 20:20 | EKG12_ITS ---
Test Reason : SYNCOPE Blood Pressure : / mmHG Vent. Rate : 036 BPM Atrial Rate : 036 BPM P-R Int : 000 ms QRS Dur : 144 ms QT Int : 488 ms P-R-T Axes : 058 246 035 degrees QTc Int : 377 ms Critical Test Result: Low HR , Arrhythmia , AV Block Marked sinus bradycardia with A-V dissociation and Idioventricular rhythm Right bundle branch block Possible Lateral infarct , age undetermined Abnormal ECG Confirmed by OPAL MOULTON, MARI ([id number]), book editor KRISTINA FERRELL ([id number]) on 02/04/2023 2:04:03 PM Referred By: Confirmed By:MARI JOSEPH MD
[2023-01-30] MEDS: 0.9% Normal Saline (1000mL) 1,000 ML 1000 ML IV (20:27)
--- NOTE | 2023-01-30 20:35 | RAD_ITS ---
STUDY: X-RAY CHEST REASON FOR EXAM: Male, 82 years old. syncope TECHNIQUE: Single AP portable view of the chest. COMPARISON: 11/29/2022. FINDINGS: The lungs are clear and expanded. Multiple calcified pleural plaques demonstrated, stable. There is mild cardiac enlargement. Normal mediastinum and mamadou. Normal visualized pulmonary arteries. There is atherosclerotic calcification of the aortic arch with tortuosity. There is demineralization of the osseous structures. There is degenerative osteoarthritis of the bilateral shoulders and spine. Postoperative changes of the left shoulder noted. There is no demonstrated abnormality of the visualized soft tissue structures of the upper abdomen. RAD/Chest 1 View (Portable) IMPRESSION: No acute cardiopulmonary change. Electronically Signed: Mariela Calloway MD at 20:54 EDT ,
[2023-01-30 21:16] LABS: Absolute Lymphocyte Count 1.16 X10^3/uL (0.83-4.51); Absolute Neutrophil Count 5.3 X10^3/uL (2.0-7.7); Basophil# 0.03 X10^3/uL; Basophil% 0.4 % (0-1); Eosinophil# 0.11 X10^3/uL; Eosinophils% 1.5 % (0-5); Hematocrit 35.4 % (40-54); Hemoglobin 10.9 g/dL (13.0-16.5); Lymphocyte # 1.16 X10^3/ul (0.83-4.51); Lymphocyte % 15.4 % (19-41); Mean Corp Hgb Conc 30.8 g/dL (32-36); Mean Corpuscular Hgb 29.1 pg (27.0-32.0); Mean Corpuscular Volume 94.4 fL (80-94); Mean Platelet Vol. 10.8 fl (6.2-12.0); Monocyte# 0.83 X10^3/uL; Monocyte% 11.1 % (0-10); NRBC Flagged by Analyzer 0 % (0-5); Neutrophil % 70.5 % (47-70); Platelet Count 217 K/mm3 (150-450); RBC Distribution Width CV 14.9 % (11.6-14.6); RBC Distribution Width SD 51.8 fl (35.1-43.9); Red Blood Count 3.75 M/mm3 (4.6-6.2); White Blood Count 7.5 K/mm3 (4.4-11.0)
[2023-01-30 21:21] LABS: International Normalized Ratio 1.1; Prothrombin Time (Protime)PT. 13.9 SECONDS (11.7-14.9)
[2023-01-30 21:22] LABS: Anion Gap 7 (5-15); BUN 28 mg/dL (7-18); BUN/Creat Ratio 16.9 RATIO (10-20); Calcium,Total 8.5 mg/dL (8.5-10.1); Chloride 108 mmol/L (98-107); Creatinine, Serum 1.66 mg/dL (0.70-1.30); EST Glomerular Filtration Rate 42 mL/min (>60); Est Glom Filt Rate - Afr Amer 51 mL/min (>60); Estimated Creatinine Clearance 32.05 ml/min; Glucose 161 mg/dL (74-106); Partial Thromboplast Time 33.1 Seconds (24.1-36.2); Potassium 4.6 mmol/L (3.5-5.1); Sodium Level 138 mmol/L (136-145)
[2023-01-30] MEDS: 0.9% Normal Saline (1000mL) 1,000 ML 150 ML IV (21:31)
--- NOTE | 2023-01-30 21:32 | EX.ED.DYSGE1 ---
HPI History of Present Illness Chief Complaint: Syncope Informant: patient and family Narrative Narrative: Brought in by EMS for syncopal episode. Patient walking his dog with his spouse, told his he felt lightheaded he had up on the ground. His head. Mild headache. No nausea or vomiting. He had previous history of PE and DVT not currently on anticoagulants. Denies any recent cough. He denies any coronaries history. He states he has aortic valve being evaluated up at [facility] for possible repair in the future. He is not on a beta-birgit or calcium channel birgit. Was at urgent care earlier today due to leg wound. He injured on a car door a week ago. He states he denies fevers or chills. He was started on Keflex. Denies any previous similar symptoms in the past. EMS EKG was reviewed noted bradycardia in the 40s, unable to clearly evaluate for heart blocks due to artifacts. 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, right Diverticulosis Diverticulosis Essential (primary) hypertension Gout Hay fever History of deep vein thrombosis of lower extremity HLD (hyperlipidemia) Hypothyroidism Iron deficiency anemia due to chronic blood loss Left ventricular diastolic dysfunction Leg wound, left Macular degeneration Non-pressure chronic ulcer of left calf with fat layer exposed Nonrheumatic aortic (valve) stenosis Osteoarthritis Pleural plaque Pulmonary nodule Right knee DJD Secondary pulmonary arterial hypertension Skin cancer Traumatic open wound of right lower leg with infection Venous ulcer with fat layer exposed Home Medications acetaminophen 500 mg tablet 1,000 mg PO BID PRN PRN Pain 12/04/18 [History Last Taken 12/03/18] epinephrine 0.3 mg/0.3 mL injection, auto-injector 0.3 mg IJ PRN PRN Anaphylaxis 12/04/18 [History Last Taken Unknown] multivitamin 1 tab PO QAM 04/19/19 [History Last Taken Unknown] sertraline 100 mg tablet 100 mg PO DAILY #90 tabs 06/10/22 [Rx Last Taken 01/27/23] fluticasone propionate 50 mcg/actuation nasal spray,suspension 2 spray intranasal DAILY #16 grams 06/27/22 [Rx Last Taken Unknown] chlorthalidone 25 mg tablet 25 mg PO DAILY #90 tabs 07/08/22 [Rx Last Taken Unknown] nystatin-triamcinolone 100,000 unit/g-0.1 % topical cream 1 applic topical BID PRN rash #30 grams 07/25/22 [Rx Last Taken Unknown] levothyroxine 75 mcg tablet 75 mcg PO DAILY #90 tabs 08/12/22 [Rx Last Taken 01/27/23] fluticasone propionate 230 mcg-salmeterol 21 mcg/actuation HFA inhaler 2 puff inhalation BID #1 device 08/23/22 [Rx Last Taken Unknown] tiotropium bromide 2.5 mcg/actuation mist for inhalation (Spiriva Respimat) 2 puff inhalation QDAY #1 ea 08/23/22 [Rx Last Taken Unknown] montelukast 10 mg tablet 10 mg PO QPM #30 tabs 09/27/22 [Rx Last Taken Unknown] albuterol sulfate 90 mcg/actuation aerosol inhaler 2 puff inhalation Q4H PRN PRN Sob &/Or Wheezing #1 ea 10/29/22 [Rx Last Taken Unknown] ferrous sulfate 325 mg (65 mg iron) tablet (FeroSul) 325 mg PO DAILY 11/29/22 [History Last Taken Unknown] nitroglycerin 0.4 mg sublingual tablet 0.4 mg sublingual Q5-15M PRN CHEST PAIN #25 tabs 12/02/22 [Rx Last Taken Unknown] famotidine 40 mg tablet 40 mg PO DAILY #90 tabs 01/02/23 [Rx Last Taken Unknown] albuterol sulfate 2.5 mg/3 mL (0.083 %) solution for nebulization 2.5 mg inhalation Q6H PRN shortness of breath or wheezing 01/30/23 [History Last Taken Unknown] cephalexin 500 mg capsule 500 mg PO Q6H 10 days #40 caps 01/30/23 [Rx Last Taken Unknown] Allergy/AdvReac Type Severity Reaction Status Date / Time indomethacin [From Indocin] AdvReac Intermediate Itching Verified 01/30/23 20:03 indomethacin sodium AdvReac Intermediate Itching Verified 01/30/23 20:03 [From Indocin] oxycodone HCl [From Percocet] AdvReac Intermediate Itching Verified 01/30/23 20:03 Family History Father Heart disease Colon cancer Sister Diabetes Mother Breast cancer Surgical History H/O hernia repair H/O prostatectomy H/O shoulder surgery H/O total knee replacement History of appendectomy History of appendectomy History of carpal tunnel surgery History of hernia repair History of left heart catheterization (02/25/22) History of prostatectomy History of total knee replacement History of total left hip replacement History of total left hip replacement Social History household members: spouse housing: house Smoking Status: Never smoker second hand exposure: Yes alcohol intake: current alcohol intake frequency: holidays/special occasions only Alcohol type: beer substance use type: does not use caffeine: Yes Type: coffee Number of servings: 2 what type of physical activity do you participate in: walking frequency: daily giancarlo/confucianism: Sabianist seatbelt use: always do you feel safe at home: Yes ROS ROS ED Constitutional Constitutional ED: Denies chills, fever(s) or sweats Eyes Eyes: Denies change in vision ENT ENT ED: Denies dysphagia or sore throat Cardiovascular Cardiovascular: Reports other Details: Syncope ; Denies chest pain, leg edema, palpitations or racing heartbeat Respiratory/Chest Respiratory/Chest: Denies cough, dyspnea or dyspnea on exertion Gastrointestinal Gastrointestinal: Denies abdominal pain, diarrhea, nausea or vomiting Genitourinary Genitourinary ED: Denies dysuria, hematuria or urinary frequency Musculoskeletal Musculoskeletal: Denies back pain, extremity pain or neck pain Integumentary Denies rash or wounds Neurologic Neurologic: Reports headache(s); Denies paresthesias or weakness EXAM Physical Exam Const Vital Signs: 01/30/23 20:03 01/30/23 20:07 01/30/23 20:08 Temperature 97 F L Temperature Source Temporal Pulse Rate 54 L Respiratory Rate 16 Respiratory Effort Short of Breath Respiratory Pattern Normal Blood Pressure 88/47 L 103/50 L Blood Pressure Mean 60 67 Pulse Ox 96 Oxygen Delivery Method Room Air 01/30/23 20:13 01/30/23 20:16 01/30/23 20:47 Temperature Temperature Source Pulse Rate 40 L 35 L 57 L Respiratory Rate Respiratory Effort Respiratory Pattern Blood Pressure 105/49 L 97/71 Blood Pressure Mean 67 79 Pulse Ox Oxygen Delivery Method 01/30/23 21:07 01/30/23 21:25 Temperature 97.3 F L Temperature Source Temporal Pulse Rate 32 L 32 L Respiratory Rate 16 16 Respiratory Effort Respiratory Pattern Blood Pressure 96/67 104/51 L Blood Pressure Mean 76 68 Pulse Ox 96 96 Oxygen Delivery Method Room Air Room Air Positive well nourished and well developed Constitutional Narrative: GCS 15. General Appearance ED: well developed and NAD HEENT Reports moist mucous membranes normocephalic and atraumatic Eyes PERRL, EOMs intact bilaterally and conjunctivae normal General Eye ED: Yes normal appearance of both eyes Neck no lymphadenopathy and supple General: Negative for tenderness Chest Wall Chest: Negative for tenderness Resp normal respiratory effort and normal air movement Effort and Inspection: symmetric chest movement; Negative for respiratory distress Cardio regular rhythm and no murmurs Rate: bradycardia Peripheral Pulses: pulses 2+ throughout GI normal to inspection, nondistended, normoactive bowel sounds and non-tender Palpation: Negative for guarding or rebound tenderness present Back/Spine no CVA tenderness and no thoracic nor lumbar tenderness Extremity normal to inspection Extremity Narrative: RLE: dressing lower leg, vertical wound mid line, mild drainage, no surrounding erythema, no streaking. General Extremety ED: Negative for edema or tenderness General Extremity: Negative for edema Neuro oriented x3, CN's II-XII intact bilaterally and no sensory deficits noted Sensorium / Orientation: awake and alert Skin no rashes or lesions noted and no wounds MDM MDM MDM Narrative Medical decision making narrative: Interventions / MDM: Differential diagnosis: Symptomatic bradycardia, heart block, Diagnosis considered but do not suspect: Intracranial hemorrhage however CT brain negative. My EKG interpretation: Complete heart block rate of 36 with escape rhythms. Imaging independently reviewed and interpreted by myself: CT brain negative, also read by radiology. 1 view chest x-ray: No acute findings. External documents reviewed: N/A Test considered but not ordered:N/A ED course: Patient blood pressure is still checked 105. Heart rate in the 30s. EKG ordered no complete heart block. Labs are ordered, CT scan ordered of head due to head injury. Chest x-ray ordered. 2020: I spoke with on-call airborne and air delivery specialist, Dr. Garcia, discussed EKG findings with patient's history. He does the patient from doing heart cath 3 days ago. He would like him in the ICU with him staying n.p.o. for planned pacemaker in the morning. Lab work with chronic kidney disease creatinine 1.6 hemoglobin 10.9 white count 7.5. Potassium 6 sodium 138. He was given IV fluids, blood pressure systolic in the 90s MAP above 65. Heart rate in the 30s to 40s. Reevaluate patient resting asymptomatic. He had pacer pads AP placed for precautions to use if needed. 2134: Spoke with hospitalist, Dr Gordon for admission. Re-evaluation: stable Disposition discussed with patient/family/significant other: Case discussed with consulting clinician: Cardiology Dr. Garcia, hospitalist This note was generated with [employer] dictation software. It may contain incorrect words, spelling, and punctuation that were not noted in checking the note before signing. Lab Data Attestation: I reviewed the patient's lab results. Labs: Laboratory Results - last 24 hr 01/30/23 19:45 WBC 7.5 RBC 3.75 L Hgb 10.9 L Hct 35.4 L MCV 94.4 H MCH 29.1 MCHC 30.8 L RDW Std Deviation 51.8 H RDW Coeff of John 14.9 H Plt Count 217 MPV 10.8 Immature Gran % (Auto) 1.100 H Neut % (Auto) 70.5 H Lymph % (Auto) 15.4 L [place] % (Auto) 11.1 H Eos % (Auto) 1.5 Baso % (Auto) 0.4 Absolute Neuts (auto) 5.3 Absolute Lymphs (auto) 1.16 Nucleated RBC % 0 PT 13.9 INR 1.1 APTT 33.1 Sodium 138 Potassium 4.6 Chloride 108 H Carbon Dioxide 23.0 Anion Gap 7 BUN 28 H Creatinine 1.66 H Estim Creat Clear Calc 32.05 Est GFR (MDRD) Af Amer 51 L Est GFR (MDRD) Non-Af 42 L BUN/Creatinine Ratio 16.9 Glucose 161 H Calcium 8.5 Radiography Diagnostic Testing: Clinical Impression(s) from Imaging Studies Brain CT 01/30/23 20:20 IMPRESSION: Involutional changes otherwise normal unenhanced CT scan of the brain for patient''s age. Electronically Signed: Mariela Calloway MD at 20:57 EDT , Chest X-Ray 01/30/23 20:35 IMPRESSION: No acute cardiopulmonary change. Electronically Signed: Mariela Calloway MD at 20:54 EDT , Critical Care Time Critical Care Time: Yes Critical care time (excluding procedures): 30-74 minutes, Discussing w/Patient &/or Family/Motor Driver, Discussing w/Consultants, Arranging Admission or Transfer, Performing Direct Patient Care at Bedside and - (30 minutes) Discharge Plan Dx/Rx/DC Orders Clinical Impression: CHB (complete heart block), CKD (chronic kidney disease), Syncope Disposition Disposition: Acute Care Hospital [facility]
--- NOTE | 2023-01-30 21:41 | PCM.HP.STD ---
HPI - General General Date of Admission: 01/30/23 Date of Service: 01/30/23 Chief Complaint: Syncope HPI Narrative CARISSA VANG, is a 82 M with a significant history of kidney disease; hypertension; nonrheumatic aortic valve stenosis who presents to the emergency department with syncope. Reportedly his symptoms happened about 30 before presentation and he was brought in by the paramedics. While he and family was walking the dog he had some chest tightness and shortness of breath. He said he was going down then turned black. This patient had heart catheterization about 3 days before presentation. He reports that there is a plan for him to have an aortic valve replacement at [facility]. 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, right Diverticulosis Diverticulosis Essential (primary) hypertension Gout Hay fever History of deep vein thrombosis of lower extremity HLD (hyperlipidemia) Hypothyroidism Iron deficiency anemia due to chronic blood loss Left ventricular diastolic dysfunction Leg wound, left Macular degeneration Non-pressure chronic ulcer of left calf with fat layer exposed Nonrheumatic aortic (valve) stenosis Osteoarthritis Pleural plaque Pulmonary nodule Right knee DJD Secondary pulmonary arterial hypertension Skin cancer Traumatic open wound of right lower leg with infection Venous ulcer with fat layer exposed Home Medications acetaminophen 500 mg tablet 1,000 mg PO BID PRN PRN Pain 12/04/18 [History Last Taken 12/03/18] epinephrine 0.3 mg/0.3 mL injection, auto-injector 0.3 mg IJ PRN PRN Anaphylaxis 12/04/18 [History Last Taken Unknown] multivitamin 1 tab PO QAM 04/19/19 [History Last Taken Unknown] sertraline 100 mg tablet 100 mg PO DAILY #90 tabs 06/10/22 [Rx Last Taken 01/27/23] fluticasone propionate 50 mcg/actuation nasal spray,suspension 2 spray intranasal DAILY #16 grams 06/27/22 [Rx Last Taken Unknown] chlorthalidone 25 mg tablet 25 mg PO DAILY #90 tabs 07/08/22 [Rx Last Taken Unknown] nystatin-triamcinolone 100,000 unit/g-0.1 % topical cream 1 applic topical BID PRN rash #30 grams 07/25/22 [Rx Last Taken Unknown] levothyroxine 75 mcg tablet 75 mcg PO DAILY #90 tabs 08/12/22 [Rx Last Taken 01/27/23] fluticasone propionate 230 mcg-salmeterol 21 mcg/actuation HFA inhaler 2 puff inhalation BID #1 device 08/23/22 [Rx Last Taken Unknown] tiotropium bromide 2.5 mcg/actuation mist for inhalation (Spiriva Respimat) 2 puff inhalation QDAY #1 ea 08/23/22 [Rx Last Taken Unknown] montelukast 10 mg tablet 10 mg PO QPM #30 tabs 09/27/22 [Rx Last Taken Unknown] albuterol sulfate 90 mcg/actuation aerosol inhaler 2 puff inhalation Q4H PRN PRN Sob &/Or Wheezing #1 ea 10/29/22 [Rx Last Taken Unknown] ferrous sulfate 325 mg (65 mg iron) tablet (FeroSul) 325 mg PO DAILY 11/29/22 [History Last Taken Unknown] nitroglycerin 0.4 mg sublingual tablet 0.4 mg sublingual Q5-15M PRN CHEST PAIN #25 tabs 12/02/22 [Rx Last Taken Unknown] famotidine 40 mg tablet 40 mg PO DAILY #90 tabs 01/02/23 [Rx Last Taken Unknown] albuterol sulfate 2.5 mg/3 mL (0.083 %) solution for nebulization 2.5 mg inhalation Q6H PRN shortness of breath or wheezing 01/30/23 [History Last Taken Unknown] cephalexin 500 mg capsule 500 mg PO Q6H 10 days #40 caps 01/30/23 [Rx Last Taken Unknown] Allergy/AdvReac Type Severity Reaction Status Date / Time indomethacin [From Indocin] AdvReac Intermediate Itching Verified 01/30/23 20:03 indomethacin sodium AdvReac Intermediate Itching Verified 01/30/23 20:03 [From Indocin] oxycodone HCl [From Percocet] AdvReac Intermediate Itching Verified 01/30/23 20:03 Family History Father Heart disease Colon cancer Sister Diabetes Mother Breast cancer Surgical History H/O hernia repair H/O prostatectomy H/O shoulder surgery H/O total knee replacement History of appendectomy History of appendectomy History of carpal tunnel surgery History of hernia repair History of left heart catheterization (02/25/22) History of prostatectomy History of total knee replacement History of total left hip replacement History of total left hip replacement Social History household members: spouse housing: house Smoking Status: Never smoker second hand exposure: Yes alcohol intake: current alcohol intake frequency: holidays/special occasions only Alcohol type: beer substance use type: does not use caffeine: Yes Type: coffee Number of servings: 2 what type of physical activity do you participate in: walking frequency: daily giancarlo/hoahaoism: Nondenominational seatbelt use: always do you feel safe at home: Yes ROS ROS Narrative Pertinent positives and pertinent negatives as noted in HPI. All other systems were reviewed and are negative Vital Signs Vital Signs Vital Signs: 01/30/23 20:03 01/30/23 20:07 01/30/23 20:08 Temperature 97 F L Temperature Source Temporal Pulse Rate 54 L Respiratory Rate 16 Respiratory Effort Short of Breath Respiratory Pattern Normal Blood Pressure 88/47 L 103/50 L Blood Pressure Mean 60 67 Pulse Ox 96 Oxygen Delivery Method Room Air 01/30/23 20:13 01/30/23 20:16 01/30/23 20:47 Temperature Temperature Source Pulse Rate 40 L 35 L 57 L Respiratory Rate Respiratory Effort Respiratory Pattern Blood Pressure 105/49 L 97/71 Blood Pressure Mean 67 79 Pulse Ox Oxygen Delivery Method 01/30/23 21:07 01/30/23 21:25 Temperature 97.3 F L Temperature Source Temporal Pulse Rate 32 L 32 L Respiratory Rate 16 16 Respiratory Effort Respiratory Pattern Blood Pressure 96/67 104/51 L Blood Pressure Mean 76 68 Pulse Ox 96 96 Oxygen Delivery Method Room Air Room Air Weight Weight: 73.618 kg Body Mass Index (BMI) 24.6 Physical Exam Narrative Physical exam: General: Well-nourished, well-developed. Head: Normocephalic, atraumatic, no tenderness Eyes: Vision is grossly intact. EOMI ENT, no trauma, moist mucous membranes, no rhinorrhea Neck: Nontender, No thyromegaly. CVS: Bradycardia. Murmur present. Respiratory : clear to auscultation bilaterally, chest wall nontender Abdomen: Soft, nontender, nondistended, normal bowel sounds, no masses : Deferred Back: Nontender, no CVA tenderness, no midline spinal tenderness, deformities, step-offs Extremities: Edema of right leg. Draining wound on the cota of right leg. Eschar on left leg. Skin: Normal color. Neuro: Alert, oriented, cranial nerves II through XII grossly intact. Psychiatry: Normal mood. Normal affect. Not depressed. Not anxious. Results Lab / Micro Data 01/30/23 19:45 01/30/23 19:45 Labs: Laboratory Results - last 24 hr 01/30/23 19:45: WBC 7.5, RBC 3.75 L, Hgb 10.9 L, Hct 35.4 L, MCV 94.4 H, MCH 29.1, MCHC 30.8 L, RDW Std Deviation 51.8 H, RDW Coeff of John 14.9 H, Plt Count 217, MPV 10.8, Immature Gran % (Auto) 1.100 H, Neut % (Auto) 70.5 H, Lymph % (Auto) 15.4 L, [place] % (Auto) 11.1 H, Eos % (Auto) 1.5, Baso % (Auto) 0.4, Absolute Neuts (auto) 5.3, Absolute Lymphs (auto) 1.16, Nucleated RBC % 0, PT 13.9, INR 1.1, APTT 33.1, Sodium 138, Potassium 4.6, Chloride 108 H, Carbon Dioxide 23.0, Anion Gap 7, BUN 28 H, Creatinine 1.66 H, Estim Creat Clear Calc 32.05, Est GFR (MDRD) Af Amer 51 L, Est GFR (MDRD) Non-Af 42 L, BUN/Creatinine Ratio 16.9, Glucose 161 H, Calcium 8.[address] 01/30/23 20:20 IMPRESSION: Involutional changes otherwise normal unenhanced CT scan of the brain for patient''s age. Electronically Signed: Mariela Calloway MD at 20:57 EDT , Chest X-Ray 01/30/23 20:35 IMPRESSION: No acute cardiopulmonary change. Electronically Signed: Mariela Calloway MD at 20:54 EDT , Assessment & Plan Assessment/Plan (1) CHB (complete heart block): (2) CKD (chronic kidney disease): QUALIFIERS: Chronic kidney disease stage: stage 3 (moderate) Chronic kidney disease stage 3 subtype: stage 3b (GFR 30-44) Qualified Code(s): N18.32 - Chronic kidney disease, stage 3b (3) Syncope: QUALIFIERS: Syncope type: unspecified Qualified Code(s): R55 - Syncope and collapse PLAN: Plan Syncope likely secondary to complete heart block Twelve-lead EKG showed complete heart block with heart rate of 36; this was independently interpreted. Chest x-ray independently interpreted showed no acute cardiopulmonary process; agrees to repeat interpretation. Brain CT with no acute process Per cardiology recommendation will keep patient n.p.o. for possible pacemaker in a.m. Admitted to the intensive care unit with pacer pads on patient. CKD 3B Stable Infected right cota wound Keflex continued DVT prophylaxis Patient is not a candidate of chemical prophylaxis secondary to possible pacemaker in AM. SCDs ordered. Time spent in the patient's overall evaluation,decision-making process, review of diagnostic data, adjustment of management, discussion with other providers, nursing nursing and ancillary staff involved in patient's care documentation, 45 minutes. Charges/Coding Visit Charges Inpatient E&M: 15743 Init Hosp L2
[2023-01-30] MEDS: Cephalexin 500 MG Capsule PO (23:53)
[2023-01-31] VITALS (29 sets, daily range): BP systolic 83–152; BP diastolic 44–88; PULSE 29–95; RESP 15–22; TEMP 36.4–37.1; O2SAT 92–100; BMI 28.4
[2023-01-31] MEDS: DOPamine IV 800 MG/250 ML IV.SOLN. 8.1 MG CONT INF (02:32)
[2023-01-31] MEDS: 0.9% Normal Saline (1000mL) 1,000 ML 60 ML IV ×2 (02:41→21:19)
[2023-01-31 04:58] LABS: Absolute Lymphocyte Count 0.75 X10^3/uL (0.83-4.51); Absolute Neutrophil Count 5.6 X10^3/uL (2.0-7.7); Basophil# 0.03 X10^3/uL; Basophil% 0.4 % (0-1); Eosinophils% 1.3 % (0-5); Hematocrit 33.7 % (40-54); Hemoglobin 10.5 g/dL (13.0-16.5); Lymphocyte # 0.75 X10^3/ul (0.83-4.51); Mean Corp Hgb Conc 31.2 g/dL (32-36); Mean Corpuscular Hgb 29.2 pg (27.0-32.0); Mean Corpuscular Volume 93.9 fL (80-94); Mean Platelet Vol. 10.4 fl (6.2-12.0); Monocyte# 0.88 X10^3/uL; Monocyte% 11.8 % (0-10); NRBC Flagged by Analyzer 0 % (0-5); Platelet Count 190 K/mm3 (150-450); RBC Distribution Width CV 15.1 % (11.6-14.6); RBC Distribution Width SD 51.9 fl (35.1-43.9); Red Blood Count 3.59 M/mm3 (4.6-6.2); White Blood Count 7.5 K/mm3 (4.4-11.0)
[2023-01-31 05:30] LABS: Anion Gap 7 (5-15); BUN 33 mg/dL (7-18); BUN/Creat Ratio 16.8 RATIO (10-20); Chloride 113 mmol/L (98-107); Creatinine, Serum 1.97 mg/dL (0.70-1.30); EST Glomerular Filtration Rate 35 mL/min (>60); Est Glom Filt Rate - Afr Amer 42 mL/min (>60); Estimated Creatinine Clearance 27.91 ml/min; Glucose 165 mg/dL (74-106); Potassium 4.4 mmol/L (3.5-5.1); Sodium Level 140 mmol/L (136-145)
[2023-01-31] MEDS: Levothyroxine 75 MCG Tablet PO (06:00)
[2023-01-31] MEDS: Ipratropium/Albuterol Sulfate 3 ML AMPUL.NEB INHALATION ×3 (07:01→19:02)
[2023-01-31] MEDS: Budesonide Respules 0.5 MG/2 ML AMPUL.NEB. INHALATION ×2 (07:01→19:02)
--- NOTE | 2023-01-31 07:24 | CON.PCM.CA_ITS ---
Assessment & Plan Assessment/Plan (1) CHB (complete heart block): PLAN: Patient presents with syncope and complete heart block. This is likely secondary to conduction system disease. My recommendation will be to proceed with a permanent pacemaker implantation sometime today. Risk benefits alternative explained to him understands and agrees to proceed. (2) Aortic stenosis: PLAN: He does have moderately severe aortic stenosis. At this juncture the plan will be to defer at the TAVR until after permanent pacemaker implantation. (3) Essential (primary) hypertension: PLAN: Blood pressure medications will be resumed postprocedure. HPI Consult Data Date of Consult: 01/31/23 HPI Narrative HPI Narrative: CARISSA VANG, is a 82 M who presents while walking his dog and suffering a syncopal episode. He says that it was unprovoked EMS was called and at the time they saw him he was in A-V dissociation. In the emergency room he was noted to be in the same with a right bundle branch block pattern. He was mildly hypotensive and was treated with IV fluids and admitted to the intensive care unit. He has a history of moderately severe aortic stenosis, hypertension, hyperlipidemia and pulmonary hypertension. He also has a history of a chronic anemia for which she has been followed by the oncologist. In February, he had complained about shortness of breath with exertion and also some with rest. He did have pulmonary function test performed in January 2022 which demonstrated a reversible mild mixed ventilatory defect. A 6-minute walk test demonstrated no significant exertional oxygen desaturation. An echocardiogram performed in August of this year demonstrated preserved ejection fraction of 60%, stage II diastolic dysfunction, and a mean aortic valve gradient of 39 mmHg suggesting moderately severe aortic stenosis. Cardiac catheterization performed 3 days ago did not demonstrate any significant coronary lesions and he was being set up to undergo a TAVR at a tertiary care institution. From a cardiac standpoint, the patient is doing well. He denies any palpitations, chest pain, pressure or heaviness. He does have occasional SOB with exertion-he attributes this to his asthma. He states that this may be slightly worse. He does acknowledge relief with his inhaler. He denies Orthopnea, and PND. He does not have bleeding issues; no blood in urine, stool or nosebleeds. He denies any decrease in energy level, myalgias, or claudication. He does not have edema, or sudden weight gain. 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, right Diverticulosis Diverticulosis Essential (primary) hypertension Gout Hay fever History of deep vein thrombosis of lower extremity HLD (hyperlipidemia) Hypothyroidism Iron deficiency anemia due to chronic blood loss Left ventricular diastolic dysfunction Leg wound, left Macular degeneration Non-pressure chronic ulcer of left calf with fat layer exposed Nonrheumatic aortic (valve) stenosis Osteoarthritis Pleural plaque Pulmonary nodule Right knee DJD Secondary pulmonary arterial hypertension Skin cancer Traumatic open wound of right lower leg with infection Venous ulcer with fat layer exposed Home Medications acetaminophen 500 mg tablet 1,000 mg PO BID PRN PRN Pain 12/04/18 [History Last Taken 12/03/18] epinephrine 0.3 mg/0.3 mL injection, auto-injector 0.3 mg IJ PRN PRN Anaphylaxis 12/04/18 [History Last Taken Unknown] multivitamin 1 tab PO QAM 04/19/19 [History Last Taken Unknown] sertraline 100 mg tablet 100 mg PO DAILY #90 tabs 06/10/22 [Rx Last Taken 01/27/23] fluticasone propionate 50 mcg/actuation nasal spray,suspension 2 spray intranasal DAILY #16 grams 06/27/22 [Rx Last Taken Unknown] chlorthalidone 25 mg tablet 25 mg PO DAILY #90 tabs 07/08/22 [Rx Last Taken Unknown] nystatin-triamcinolone 100,000 unit/g-0.1 % topical cream 1 applic topical BID PRN rash #30 grams 07/25/22 [Rx Last Taken Unknown] levothyroxine 75 mcg tablet 75 mcg PO DAILY #90 tabs 08/12/22 [Rx Last Taken 01/27/23] fluticasone propionate 230 mcg-salmeterol 21 mcg/actuation HFA inhaler 2 puff inhalation BID #1 device 08/23/22 [Rx Last Taken Unknown] tiotropium bromide 2.5 mcg/actuation mist for inhalation (Spiriva Respimat) 2 puff inhalation QDAY #1 ea 08/23/22 [Rx Last Taken Unknown] montelukast 10 mg tablet 10 mg PO QPM #30 tabs 09/27/22 [Rx Last Taken Unknown] albuterol sulfate 90 mcg/actuation aerosol inhaler 2 puff inhalation Q4H PRN PRN Sob &/Or Wheezing #1 ea 10/29/22 [Rx Last Taken Unknown] ferrous sulfate 325 mg (65 mg iron) tablet (FeroSul) 325 mg PO DAILY 11/29/22 [History Last Taken Unknown] nitroglycerin 0.4 mg sublingual tablet 0.4 mg sublingual Q5-15M PRN CHEST PAIN #25 tabs 12/02/22 [Rx Last Taken Unknown] famotidine 40 mg tablet 40 mg PO DAILY #90 tabs 01/02/23 [Rx Last Taken Unknown] albuterol sulfate 2.5 mg/3 mL (0.083 %) solution for nebulization 2.5 mg inhalation Q6H PRN shortness of breath or wheezing 01/30/23 [History Last Taken Unknown] cephalexin 500 mg capsule 500 mg PO Q6H 10 days #40 caps 01/30/23 [Rx Last Taken Unknown] Allergy/AdvReac Type Severity Reaction Status Date / Time indomethacin [From Indocin] AdvReac Intermediate Itching Verified 01/30/23 20:03 indomethacin sodium AdvReac Intermediate Itching Verified 01/30/23 20:03 [From Indocin] oxycodone HCl [From Percocet] AdvReac Intermediate Itching Verified 01/30/23 20:03 Family History Father Heart disease Colon cancer Sister Diabetes Mother Breast cancer Surgical History H/O hernia repair H/O prostatectomy H/O shoulder surgery H/O total knee replacement History of appendectomy History of appendectomy History of carpal tunnel surgery History of hernia repair History of left heart catheterization (02/25/22) History of prostatectomy History of total knee replacement History of total left hip replacement History of total left hip replacement Social History household members: spouse housing: house Smoking Status: Never smoker second hand exposure: Yes alcohol intake: current alcohol intake frequency: holidays/special occasions only Alcohol type: beer substance use type: does not use caffeine: Yes Type: coffee Number of servings: 2 what type of physical activity do you participate in: walking frequency: daily giancarlo/rastafarian: Quaker seatbelt use: always do you feel safe at home: Yes ROS Constitutional Constitutional: Denies fever(s) or weight loss Eyes Eyes: Reports systems reviewed and no addt'l complaints, except as documented ENT HEENT: Reports systems reviewed and no addt'l complaints, except as documented Cardiovascular Cardiovascular: Denies chest pain at rest, chest pain with activity, dyspnea at rest, dyspnea on exertion, edema, palpitations or paroxysmal nocturnal dyspnea Respiratory/Chest Respiratory/Chest: Denies dyspnea on exertion, productive cough, shortness of breath at rest or shortness of breath with exertion Gastrointestinal Gastrointestinal: Denies change in bowel habits, nausea, vomiting or weight changes Genitourinary Genitourinary: Denies difficulty urinating Musculoskeletal Musculoskeletal: Denies joint stiffness or muscle weakness Integumentary Integumentary: Denies lesions Neurologic Neurologic: Reports dizziness and syncope Psychiatric Psychiatric: Denies anxiety Endocrine Endocrinology: Denies excessive sweating or fatigue Hematologic/Lymphatic Hematologic/Lymphatic: Denies anemia Allergic/Immunologic Allergic/Immunologic: Denies seasonal rhinorrhea Physical Exam Const alert, oriented x3 and no apparent distress General Appearance: cooperative HEENT hearing grossly normal bilaterally Head and Scalp: atraumatic Eyes EOMs intact bilaterally Neck General: normal visual inspection Chest inspection of chest normal and palpation of chest normal Resp normal respiratory effort Auscultation: clear to auscultation bilaterally Cardio regular rate, regular rhythm, S1 normal heart sound and S2 normal heart sound Jugular Venous Distention: JVD Heart Sounds: murmur systolic GI normal to inspection, nondistended, normoactive bowel sounds Extremity normal capillary refill and no pedal edema Peripheral Pulses: Yes pulses 2+ throughout and femoral pulses present Skin no rashes or lesions noted Neuro oriented x3 and CN's II-XII intact bilaterally Psych Appearance: grossly normal and appropriate Risk Stratification Risk Stratification Applicable: No Objective Data Vital Signs: Vital Signs Temp Pulse Resp BP Pulse Ox O2 Del Method O2 Flow Rate 98.8 F 40 L 16 102/44 L 93 Nasal Cannula 2.5 01/31/23 06:00 01/31/23 07:02 01/31/23 07:02 01/31/23 07:00 01/31/23 07:02 01/31/23 07:02 01/31/23 07:02 Oxygen Flow Rate (L/min) 2.5 Oxygen Delivery Method Nasal Cannula Weight: 192 lb 7.417 oz Body Mass Index (BMI) 28.4 Intake & Output: Intake and Output for Last 24 Hours 01/29/23 01/30/23 01/31/23 23:59 23:59 23:59 Intake Total 1000 / 1040 940 / 940 Output Total 0 / 0 Balance 1000 / 1040 940 / 940 Lab / Micro Data 01/31/23 04:45 01/31/23 04:45 Labs: Laboratory Results - last 24 hr 01/30/23 19:45: WBC 7.5, RBC 3.75 L, Hgb 10.9 L, Hct 35.4 L, MCV 94.4 H, MCH 29.1, MCHC 30.8 L, RDW Std Deviation 51.8 H, RDW Coeff of John 14.9 H, Plt Count 217, MPV 10.8, Immature Gran % (Auto) 1.100 H, Neut % (Auto) 70.5 H, Lymph % (Auto) 15.4 L, [place] % (Auto) 11.1 H, Eos % (Auto) 1.5, Baso % (Auto) 0.4, Absolute Neuts (auto) 5.3, Absolute Lymphs (auto) 1.16, Nucleated RBC % 0, PT 13.9, INR 1.1, APTT 33.1, Sodium 138, Potassium 4.6, Chloride 108 H, Carbon Dioxide 23.0, Anion Gap 7, BUN 28 H, Creatinine 1.66 H, Estim Creat Clear Calc 32.05, Est GFR (MDRD) Af Amer 51 L, Est GFR (MDRD) Non-Af 42 L, BUN/Creatinine Ratio 16.9, Glucose 161 H, Calcium 8.5 01/31/23 04:45: WBC 7.5, RBC 3.59 L, Hgb 10.5 L, Hct 33.7 L, MCV 93.9, MCH 29.2, MCHC 31.2 L, RDW Std Deviation 51.9 H, RDW Coeff of John 15.1 H, Plt Count 190, MPV 10.4, Immature Gran % (Auto) 1.500 H, Neut % (Auto) 75.0 H, Lymph % (Auto) 10.0 L, [place] % (Auto) 11.8 H, Eos % (Auto) 1.3, Baso % (Auto) 0.4, Absolute Neuts (auto) 5.6, Absolute Lymphs (auto) 0.75 L, Nucleated RBC % 0, Sodium 140, Potassium 4.4, Chloride 113 H, Carbon Dioxide 20.0 L, Anion Gap 7, BUN 33 H, Creatinine 1.97 H, Estim Creat Clear Calc 27.91, Est GFR (MDRD) Af Amer 42 L, Est GFR (MDRD) Non-Af 35 L, BUN/Creatinine Ratio 16.8, Glucose 165 H, Calcium 8.0 L Cardiology Labs/Tests 01/30/23 19:45: WBC 7.5, RBC 3.75 L, Hgb 10.9 L, Hct 35.4 L, MCV 94.4 H, MCH 29.1, MCHC 30.8 L, Plt Count 217, MPV 10.8, Immature Gran % (Auto) 1.100 H, Neut % (Auto) 70.5 H, Lymph % (Auto) 15.4 L, [place] % (Auto) 11.1 H, Eos % (Auto) 1.5, Baso % (Auto) 0.4, Absolute Neuts (auto) 5.3, Nucleated RBC % 0, PT 13.9, INR 1.1, APTT 33.1, Sodium 138, Potassium 4.6, Chloride 108 H, Carbon Dioxide 23.0, Anion Gap 7, BUN 28 H, Creatinine 1.66 H, Est GFR (MDRD) Af Amer 51 L, Est GFR (MDRD) Non-Af 42 L, BUN/Creatinine Ratio 16.9, Glucose 161 H, Calcium 8.5 01/31/23 04:45: WBC 7.5, RBC 3.59 L, Hgb 10.5 L, Hct 33.7 L, MCV 93.9, MCH 29.2, MCHC 31.2 L, Plt Count 190, MPV 10.4, Immature Gran % (Auto) 1.500 H, Neut % (Auto) 75.0 H, Lymph % (Auto) 10.0 L, [place] % (Auto) 11.8 H, Eos % (Auto) 1.3, Baso % (Auto) 0.4, Absolute Neuts (auto) 5.6, Nucleated RBC % 0, Sodium 140, Potassium 4.4, Chloride 113 H, Carbon Dioxide 20.0 L, Anion Gap 7, BUN 33 H, Creatinine 1.97 H, Est GFR (MDRD) Af Amer 42 L, Est GFR (MDRD) Non-Af 35 L, BUN/ Creatinine Ratio 16.8, Glucose 165 H, Calcium 8.0 L Rhythm: EKG: ECHO: Stress Test: Cardiac Cath: PCI: CT Surgery: Holter monitor: EPS: PPM: CXR: Chest CT Scan: Radiography Diagnostic Testing: Radiology Impression Brain CT 01/30/23 20:20 IMPRESSION: Involutional changes otherwise normal unenhanced CT scan of the brain for patient''s age. Electronically Signed: Mariela Calloway MD at 20:57 EDT , Chest X-Ray 01/30/23 20:35 IMPRESSION: No acute cardiopulmonary change. Electronically Signed: Mariela Calloway MD at 20:54 EDT ,
--- NOTE | 2023-01-31 08:55 | PN.HOSP_ITS ---
Subjective Subjective Doing well, denies any chest pain or shortness of breath. Objective Data Objective Data Vital Signs: Vital Signs Temp Pulse Resp BP Pulse Ox O2 Del Method O2 Flow Rate 98.8 F 40 L 16 102/44 L 93 Nasal Cannula 2.5 01/31/23 06:00 01/31/23 07:02 01/31/23 07:02 01/31/23 07:00 01/31/23 07:02 01/31/23 07:02 01/31/23 07:02 Oxygen Flow Rate (L/min) 2.5 Oxygen Delivery Method Nasal Cannula Weight: 192 lb 7.417 oz Body Mass Index (BMI) 28.4 Intake & Output: Intake and Output for Last 24 Hours 01/30/23 01/31/23 02/01/23 03:59 03:59 03:59 Intake Total 1899 / 1899 40 Output Total 0 / 0 0 / 0 Balance 1899 / 1899 Lab / Micro Data 01/31/23 04:45 01/31/23 04:45 Labs: Laboratory Results - last 24 hr 01/30/23 19:45: WBC 7.5, RBC 3.75 L, Hgb 10.9 L, Hct 35.4 L, MCV 94.4 H, MCH 29.1, MCHC 30.8 L, RDW Std Deviation 51.8 H, RDW Coeff of John 14.9 H, Plt Count 217, MPV 10.8, Immature Gran % (Auto) 1.100 H, Neut % (Auto) 70.5 H, Lymph % (Auto) 15.4 L, [place] % (Auto) 11.1 H, Eos % (Auto) 1.5, Baso % (Auto) 0.4, Absolute Neuts (auto) 5.3, Absolute Lymphs (auto) 1.16, Nucleated RBC % 0, PT 13.9, INR 1.1, APTT 33.1, Sodium 138, Potassium 4.6, Chloride 108 H, Carbon Dioxide 23.0, Anion Gap 7, BUN 28 H, Creatinine 1.66 H, Estim Creat Clear Calc 32.05, Est GFR (MDRD) Af Amer 51 L, Est GFR (MDRD) Non-Af 42 L, BUN/Creatinine Ratio 16.9, Glucose 161 H, Calcium 8.5 01/31/23 04:45: WBC 7.5, RBC 3.59 L, Hgb 10.5 L, Hct 33.7 L, MCV 93.9, MCH 29.2, MCHC 31.2 L, RDW Std Deviation 51.9 H, RDW Coeff of John 15.1 H, Plt Count 190, MPV 10.4, Immature Gran % (Auto) 1.500 H, Neut % (Auto) 75.0 H, Lymph % (Auto) 10.0 L, [place] % (Auto) 11.8 H, Eos % (Auto) 1.3, Baso % (Auto) 0.4, Absolute Neuts (auto) 5.6, Absolute Lymphs (auto) 0.75 L, Nucleated RBC % 0, Sodium 140, Potassium 4.4, Chloride 113 H, Carbon Dioxide 20.0 L, Anion Gap 7, BUN 33 H, Creatinine 1.97 H, Estim Creat Clear Calc 27.91, Est GFR (MDRD) Af Amer 42 L, Est GFR (MDRD) Non-Af 35 L, BUN/Creatinine Ratio 16.8, Glucose 165 H, Calcium 8.0 L Radiography Diagnostic Testing: Radiology Impression Brain CT 01/30/23 20:20 IMPRESSION: Involutional changes otherwise normal unenhanced CT scan of the brain for patient''s age. Electronically Signed: Mariela Calloway MD at 20:57 EDT Reading Location ID and State: [facility] / [place] , Service support , Chest X-Ray 01/30/23 20:35 IMPRESSION: No acute cardiopulmonary change. Electronically Signed: Mariela Calloway MD at 20:54 EDT , Physical Exam Narrative General: Alert, Oriented x3, Cooperative, No apparent distress HEENT: Atraumatic, PERRLA, EOMI, Normocephalic Oral: Moist Mucosa Neck: Supple, No JVD Lungs: Diminished, Normal air movement, No rhonchi, No wheeze, No rales Cardiovascular: Bradycardic, Regular Rhythm, Normal S1, Normal S2, murmurs Abdomen: Soft, Non Tender, Non-Distended, No Hepato-splenomegaly Extremities: Edema, Capillary Refill Less than 3 Seconds Skin: Right cota skin tear Musculoskeletal: No Tenderness to Palpation of Joints or Extremities Neurological: Cranial nerves II-XII grossly intact, Motor Exam 5/5 strength throughout, Sensory exam intact to light touch and pain Psych/Mental Status: Normal Affect, Appropriate Assessment & Plan Assessment/Plan (1) CHB (complete heart block): (2) CKD (chronic kidney disease): QUALIFIERS: Chronic kidney disease stage: stage 3 (moderate) C hronic kidney disease stage 3 subtype: stage 3b (GFR 30-44) Qualified Code(s): N18.32 - Chronic kidney disease, stage 3b (3) Syncope: QUALIFIERS: Syncope type: unspecified Qualified Code(s): R55 - Syncope and collapse PLAN: Plan 1. Syncope secondary to complete heart block/HTN/HLD/aortic stenosis ? We will consult cardiology for pacemaker placement today on ? He is to follow-up with [facility] for his aortic valve replacement surgery ? Appreciate cardiology assistance, can resume his blood pressure medications after his pacemaker 2. Right cota cellulitis ? He has a skin tear that was being treated as an outpatient with Keflex which will be continued here in the hospital 3. Hypothyroidism ? Stable ? Continue with Synthroid 4. Anxiety/depression ? Stable ? Continue Zoloft DVT: SCDs Charges/Coding Visit Charges Inpatient E&M: 03394 Subs Hosp L2
--- NOTE | 2023-01-31 11:46 | CL.IE_ITS ---
Patient: CARISSA VANG Study Date: 01/31/2023 Performing: Ke Garcia MD : 1940 Age: 82 Gender: male PROCEDURES PERFORMED LP04-([id number])INITIAL PACER INSERT+DUAL LEADS LP13-([id number])TEMPORARY INTRAVENTRICULAR PACING INDICATIONS Atrial fibrillation and complete heart block Atrial fibrillation and complete heart block PROCEDURE DETAILS The patient was brought to the Catheterization Lab in the postabsorptive nonsedated state. Informed consent was obtained prior to the procedure. Local anesthetic was given subcutaneously to the left subclavian region with Lidocaine 2%. Access was achieved and a guidewire was advanced into the left subclavian vein. A peel-away sheath was inserted into the left subclavian vein. PPM ventricular lead was inserted / positioned to right ventricular apex. PPM ventricular lead testing performed. PPM ventricular lead testing performed. PPM atrial lead was inserted / positioned to the right atrial appendage. PPM atrial lead testing performed. Device pocket was irrigated with antibiotic. PPM generator was attached to the lead(s) and inserted into the pocket. Subcutaneous closure was completed. Skin closure was completed. Steri-strips applied to left subclavicular incision. The patient tolerated the procedure well. Estimated Blood Loss: < 10 mls IMPLANTED / EX-PLANTED DEVICES IMPLANTED DEVICE(S): PPM Ventricular lead - Utility Mechanic Supervisor: [employer]Stein, Model # [id number] , Serial # [id number] PPM Atrial lead - Utility Mechanic Supervisor: [employer]Stein, Model # [id number] , Serial # [id number] PPM Generator - Utility Mechanic Supervisor: [employer]Stein, Model # [id number] , Serial # [id number] DEVICE PARAMETERS ATRIAL LEAD PARAMETERS: P wave (mV) - 2.1 threshold (V) - 1.6 impedence (OHMS) - 405 VENTRICULAR LEAD PARAMETERS: R wave (mV) - 6 threshold (V) - .9 impedence (OHMS) - 660 DEVICE PARAMETERS: Mode - ddd lower rate - 60 upper rate - 120 rate response off CONCLUSIONS / RECOMMENDATIONS Device Conclusions: Successful implantation of a dual chamber pacemaker battery change and replacement Device Recommendations: Follow up with Primary Care Physician PROCEDURE MEDICATIONS Versed 1 mg IV Fentanyl 50 mcg IV Oxygen: 2 L/min via nasal cannula Ancef 2 Gm IV @ 01/31/2023 10:06:20 Signed By Ke Garcia MD On 01/31/2023 11:45:47 Ke Garcia MD
[2023-01-31] MEDS: Fluticasone 0.05% 1 SPRAY NASAL.SRY 2 SPRAY NASAL (12:12)
[2023-01-31] MEDS: Multivitamins,Therapeutic Tablet 1 TABLET PO (12:13)
[2023-01-31] MEDS: Ferrous Sulfate 325 MG Tablet PO (12:13)
[2023-01-31] MEDS: Cephalexin 500 MG Capsule PO ×2 (12:13→23:07)
[2023-01-31] MEDS: Sertraline 100 MG Tablet PO (12:13)
[2023-01-31] MEDS: Famotidine 20 MG Tablet PO (12:13)
--- NOTE | 2023-01-31 14:51 | CHAPLAIN ---
Type of Pastoral Visit _x__ Initial Visit ___ Follow-up Visit ___ On-call Visit ___ General Patient Visit ___ Spiritual Assessment ___ Family Conference ___ Bereavement ___ Rapid Response ___ Code Blue ___ Other (describe below) Pastoral Care Referral From _x__ Patient ___ Family ___ Nurse ___ Physician ___ Continuous Process Tanner Rotary Drum ___ Commercial Solar Sales Consultant ___ Other (describe below) Sacrament/Intervention _x__ Active listening ___ Anointing ___ Anglican ___ Bereavement ___ Communion _x__ Galina exploration ___ _x__ Life review _x__ Prayer ___ Reconciliation ___ Sacrament of Sick _x__ Supportive presence ___ Wedding ___ Other (describe below) Pastoral Comments patient is very welcoming and talkative; pt received a pacemaker earlier today; pt talks about his galina and having no fear because the Lord has been watching over him and meeting him all through life; pt has spouse at home; pt shares stories about his life; pt expresses thankfulness for spiritual care support; prayer given
--- NOTE | 2023-01-31 15:01 | CASEMGMT ---
RN?CM?PRINTED CIRCUIT BOARD DRAFTER?CM?to room to meet with patient for initial transition planning/care coordination?assessment.?RN?CM?introduced self and role at [facility].? Pt voices understanding and consents to?assessment?at this time.? Pt resting in bed in no distress at this time.? Pt is A/O at this time and answers all questions appropriately.?? Care providers, pharmacy, and demographics verified/updated at this time. PCP: Dr Grossman Specialists: Dr Garcia-cardiology, Dr Mancia-oncology, Dr Sánchez-pulmonology, Dr Salcido--Cadiovascular surgeon @ [facility], Dr Delacruz-opth @ [facility] in [place] (comes to [place] and pt sees him Q 6 months). [facility]erred [facility]acy: [facility] Insurance: Prescription Benefit:?Yes Living Will/HPOA:?Pt has both LW and HCPOA, who is his , Jacey GOMEZOK: , Jacey. 3 sons: London, Aron, and Trino Living Arrangements:Lives w/his in one-story home w/no steps to enter. Independent w/ADL's and manages his own medications. Pt states he does most of the IADL's. Transportation:?Pt does not drive d/t macular degeneration. drives. DME: States has the following DME:?cane he uses once in awhile, nebulizer, pulse ox, and hearing aides ?Pt states no need for further DME at this time.? HHC/SNF: No hx of SNF. Has had [facility] HHC in the past. Pt denies need for HHC. Pt wishes to return home and states has no concerns with going home at time of discharge.? CM?to follow for any further discharge planning/needs.? Pt voices no further concerns/needs at this time.? Advised pt to ask for?CM?if any further questions/concerns/needs arise.? Voices understanding. PLAN:??Home Margarita BSN?RN?CM
[2023-01-31] MEDS: Montelukast 10 MG Tablet PO (21:11)
[2023-02-01 03:45] VITALS: BMI 28.8
[2023-02-01 05:15] VITALS: BP 146/75; PULSE 96; RESP 18; TEMP 36.9; O2SAT 97
[2023-02-01] MEDS: Levothyroxine 75 MCG Tablet PO (05:21)
--- NOTE | 2023-02-01 05:40 | RAD_ITS ---
EXAM: XR CHEST, 2 VIEWS CLINICAL INDICATION: Post permanant ICD/Pacemaker -- inspiration/expiration. Arms Down. Wet read to MD TECHNIQUE: Frontal inspiratory and expiratory views of the chest. COMPARISON: No relevant prior studies available. FINDINGS: LUNGS AND PLEURAL SPACES: Bilateral calcified pleural plaques. Bibasilar atelectasis. No pneumothorax. No effusion. HEART: Unremarkable. Cardiac silhouette not enlarged. MEDIASTINUM: Central airways and mediastinal contour are unremarkable. BONES/JOINTS: Unremarkable. SOFT TISSUES: Unremarkable. TUBES, LINES AND DEVICES: Left chest pacer with leads overlying the right atrium and right ventricle. RAD/Chest Insp/Exp 2 View IMPRESSION: Left chest pacer with leads overlying the right atrium and right ventricle. No pneumothorax identified. Electronically Signed: Alirio Merritt MD at 6:49 EDT ,
[2023-02-01 07:20] VITALS: PULSE 90; RESP 16; O2SAT 96
[2023-02-01] MEDS: Ipratropium/Albuterol Sulfate 3 ML AMPUL.NEB INHALATION ×2 (07:21→14:11)
[2023-02-01] MEDS: Budesonide Respules 0.5 MG/2 ML AMPUL.NEB. INHALATION (07:21)
[2023-02-01 08:02] LABS: Absolute Lymphocyte Count 0.39 X10^3/uL (0.83-4.51); Absolute Neutrophil Count 5.9 X10^3/uL (2.0-7.7); Basophil# 0.02 X10^3/uL; Basophil% 0.3 % (0-1); Eosinophil# 0.04 X10^3/uL; Eosinophils% 0.6 % (0-5); Hematocrit 35.2 % (40-54); Hemoglobin 10.9 g/dL (13.0-16.5); Lymphocyte # 0.39 X10^3/ul (0.83-4.51); Lymphocyte % 5.4 % (19-41); Mean Corpuscular Hgb 29.3 pg (27.0-32.0); Mean Corpuscular Volume 94.6 fL (80-94); Mean Platelet Vol. 10.8 fl (6.2-12.0); Monocyte# 0.82 X10^3/uL; Monocyte% 11.3 % (0-10); NRBC Flagged by Analyzer 0 % (0-5); Neutrophil # 5.91 X10^3/uL (2.7-7.7); Neutrophil % 81.6 % (47-70); POSITIVE DIFFERENTIAL YES; Platelet Count 172 K/mm3 (150-450); RBC Distribution Width CV 14.6 % (11.6-14.6); RBC Distribution Width SD 50.6 fl (35.1-43.9); Red Blood Count 3.72 M/mm3 (4.6-6.2); White Blood Count 7.2 K/mm3 (4.4-11.0)
[2023-02-01 08:05] LABS: Differential Indicated SCAN CRITERIA MET
[2023-02-01 08:17] LABS: Anion Gap 7 (5-15); BUN 27 mg/dL (7-18); BUN/Creat Ratio 19.3 RATIO (10-20); Calcium,Total 8.2 mg/dL (8.5-10.1); Chloride 113 mmol/L (98-107); EST Glomerular Filtration Rate 51 mL/min (>60); Est Glom Filt Rate - Afr Amer 62 mL/min (>60); Estimated Creatinine Clearance 39.28 ml/min; Glucose 131 mg/dL (74-106); Sodium Level 140 mmol/L (136-145)
--- NOTE | 2023-02-01 09:33 | PCM.PN.CARD ---
Subjective Subjective Patient seen and evaluated. Appears to be doing well. Objective Data Vital Signs: Vital Signs Temp Pulse Resp BP Pulse Ox O2 Del Method O2 Flow Rate 98.5 F 96 18 146/75 H 97 Nasal Cannula 2 02/01/23 05:02/01/23 05:02/01/23 05:02/01/23 05:02/01/23 05:02/01/23 05:02/01/23 05:28 Oxygen Flow Rate (L/min) 2 Oxygen Delivery Method Nasal Cannula Weight: 195 lb 5.273 oz Body Mass Index (BMI) 28.8 Intake & Output: Intake and Output for Last 24 Hours 01/30/23 01/31/23 02/01/23 23:59 23:59 23:59 Intake Total 1000 / 1040 2158.2158. 120 / 120 Output Total 150 / 150 300 / 300 Balance 1000 / 1040 11 -180 / -180 Lab / Micro Data 02/01/23 06:25 02/01/23 06:25 Labs: Laboratory Results - last 24 hr 02/01/23 06:25: WBC 7.2, RBC 3.72 L, Hgb 10.9 L, Hct 35.2 L, MCV 94.6 H, MCH 29.3, MCHC 31.0 L, RDW Std Deviation 50.6 H, RDW Coeff of John 14.6, Plt Count 172, MPV 10.8, Immature Gran % (Auto) 0.800, Neut % (Auto) 81.6 H, Lymph % (Auto) 5.4 L, Pettis % (Auto) 11.3 H, Eos % (Auto) 0.6, Baso % (Auto) 0.3, Absolute Neuts (auto) 5.9, Absolute Lymphs (auto) 0.39 L, Nucleated RBC % 0, Sodium 140, Potassium 4.0, Chloride 113 H, Carbon Dioxide 20.0 L, Anion Gap 7, BUN 27 H, Creatinine 1.40 H, Estim Creat Clear Calc 39.28, Est GFR (MDRD) Af Amer 62, Est GFR (MDRD) Non-Af 51 L, BUN/Creatinine Ratio 19.3, Glucose 131 H, Calcium 8.2 L Cardiology Labs/Tests 02/01/23 06:25: WBC 7.2, RBC 3.72 L, Hgb 10.9 L, Hct 35.2 L, MCV 94.6 H, MCH 29.3, MCHC 31.0 L, Plt Count 172, MPV 10.8, Immature Gran % (Auto) 0.800, Neut % (Auto) 81.6 H, Lymph % (Auto) 5.4 L, Pettis % (Auto) 11.3 H, Eos % (Auto) 0.6, Baso % (Auto) 0.3, Absolute Neuts (auto) 5.9, Nucleated RBC % 0, Sodium 140, Potassium 4.0, Chloride 113 H, Carbon Dioxide 20.0 L, Anion Gap 7, BUN 27 H, Creatinine 1.40 H, Est GFR (MDRD) Af Amer 62, Est GFR (MDRD) Non-Af 51 L, BUN/Creatinine Ratio 19.3, Glucose 131 H, Calcium 8.2 L Rhythm: EKG: ECHO: Stress Test: Cardiac Cath: PCI: CT Surgery: Holter monitor: EPS: PPM: CXR: Chest CT Scan: Radiography Diagnostic Testing: Radiology Impression Chest X-Ray 02/01/23 05:40 IMPRESSION: Left chest pacer with leads overlying the right atrium and right ventricle. No pneumothorax identified. Electronically Signed: Alirio Merritt MD at 6:49 EDT , Physical Exam Const alert, oriented x3 and no apparent distress General Appearance: cooperative HEENT hearing grossly normal bilaterally Head and Scalp: atraumatic Eyes EOMs intact bilaterally Neck General: normal visual inspection Chest inspection of chest normal and palpation of chest normal Resp normal respiratory effort Auscultation: clear to auscultation bilaterally Cardio regular rate, regular rhythm, S1 normal heart sound and S2 normal heart sound Jugular Venous Distention: JVD GI normal to inspection, nondistended, normoactive bowel sounds Extremity normal capillary refill and no pedal edema Peripheral Pulses: Yes pulses 2+ throughout and femoral pulses present Skin no rashes or lesions noted Neuro oriented x3 and CN's II-XII intact bilaterally Psych Appearance: grossly normal and appropriate Assessment & Plan Assessment/Plan (1) CHB (complete heart block): PLAN: Patient presents with syncope and complete heart block. This is likely secondary to conduction system disease. Patient underwent placement of a permanent pacemaker. It was interrogated this morning is functioning well and chest x-ray is unremarkable. Will discharge for outpatient follow-up. Patient appears to be in atrial fibrillation flutter anticoagulation will be started as outpatient. (2) Aortic stenosis: PLAN: He does have moderately severe aortic stenosis. At this juncture the plan will be to defer at the [facility] until after permanent pacemaker implantation. (3) Essential (primary) hypertension: PLAN: Blood pressure medications will be resumed postprocedure.
[2023-02-01 10:00] VITALS: O2SAT 91; O2SAT 95
[2023-02-01 10:51] VITALS: BP 146/80; PULSE 87; RESP 16; TEMP 36.5; O2SAT 98
[2023-02-01] MEDS: Fluticasone 0.05% 1 SPRAY NASAL.SRY 2 SPRAY NASAL (10:53)
[2023-02-01] MEDS: Famotidine 20 MG Tablet PO (10:53)
[2023-02-01] MEDS: Ferrous Sulfate 325 MG Tablet PO (10:54)
[2023-02-01] MEDS: Multivitamins,Therapeutic Tablet 1 TABLET PO (10:54)
[2023-02-01] MEDS: Sertraline 100 MG Tablet PO (10:54)
[2023-02-01] MEDS: Cephalexin 500 MG Capsule PO (10:54)
--- NOTE | 2023-02-01 12:17 | DCINST_ITS ---
Discharge Instructions Diet Discharge Diet: Low fat / Low cholesterol Activity Discharge Activity: Return to Normal Activity Dressing / Incision Call your doctor if your incision/area has: Continuous Slow Oozing, Increased Redness and Foul Smelling Discharge Call your doctor if you observe: Fever of 101 or Higher, Shortness of breath, Dizziness, Fainting spells, Swelling in the ankles, Chest pain and Increased palpitations (irregular heartbeat) Follow Up Care Test Results: Test results from this visit will be discussed in further detail at your follow- up appointment, if applicable. Discharge Plan Admission Admit Date/Time: 01/30/23 21:29 Attending Provider: Teofilo Sy Primary Care Provider: Angelique Grossman Consulting Providers: Eddi Gordon; Ke Garica Discharge Orders/Prescriptions Prescriptions: Continued multivitamin Tablet 1 tab PO QAM montelukast 10 mg tablet 10 mg PO QPM Qty: 30 3RF ferrous sulfate [FeroSul] 325 mg (65 mg iron) tablet 325 mg PO DAILY cephalexin 500 mg capsule 500 mg PO Q6H 10 Days Qty: 40 0RF epinephrine 0.3 MG/0.3 ML auto-injector 0.3 mg IJ PRN PRN (Reason: Anaphylaxis) acetaminophen 500 MG tablet 1,000 mg PO BID PRN PRN (Reason: Pain) albuterol sulfate 2.5 mg /3 mL (0.083 %) solution for nebulization 2.5 mg INHALATION Q6H PRN (Reason: shortness of breath or wheezing) sertraline 100 mg tablet 100 mg PO DAILY Qty: 90 1RF fluticasone propionate 50 mcg/actuation spray,suspension 2 spray intranasal DAILY Qty: 16 3RF chlorthalidone 25 mg tablet 25 mg PO DAILY Qty: 90 3RF nystatin-triamcinolone 100,000-0.1 unit/g-% cream 1 applic topical BID PRN (Reason: rash) Qty: 30 1RF levothyroxine 75 mcg tablet 75 mcg PO DAILY Qty: 90 3RF fluticasone propion-salmeterol 230-21 mcg/actuation HFA aerosol inhaler 2 puff INHALATION BID Qty: 1 11RF Spiriva Respimat 2.5 mcg/actuation mist 2 puff INHALATION QDAY Qty: 1 11RF albuterol sulfate 90 mcg/actuation HFA aerosol inhaler 2 puff INHALATION Q4H PRN PRN (Reason: Sob &/Or Wheezing) Qty: 1 6RF nitroglycerin 0.4 mg tablet, sublingual 0.4 mg sublingual Q5-15M PRN (Reason: CHEST PAIN) Qty: 25 3RF famotidine 40 mg tablet 40 mg PO DAILY Qty: 90 3RF Referrals / Follow Up: Ke Garcia MD [Med Staff - Active Staff] - Within 1 Month Angelique Grossman MD [Primary Care Provider] - Within 1 Week Disposition Disposition (needs filled in before D/C Order can be placed): Home, Self Care
--- NOTE | 2023-02-01 12:41 | DCINST_ITS ---
Discharge Instructions Diet Discharge Diet: Low fat / Low cholesterol Activity Discharge Activity: May Not Drive May shower in (days): 2 Additional Activity Instructions:: May shower or bathe on [day 3]. Do not scrub the incision or soak in the tub. Just wash with soap and let the water run over the incision. Gently pat dry with towel. Medications: Take your pain medication as directed. Refer to your discharge instruction sheet for a list of medications you are to take. Dressing / Incision Call your doctor if your incision/area has: Continuous Slow Oozing, Increased Redness and Foul Smelling Discharge Call your doctor if you observe: Fever of 101 or Higher, Shortness of breath, Dizziness, Fainting spells, Swelling in the ankles, Chest pain and Increased palpitations (irregular heartbeat) Suture Line Care: Avoid Pulling/Pushing and Avoid Pinching/Bending Additional Dressing/Incision Instructions:: When dressing is removed, wash and dry incision. Keep covered with a light bandage if it is rubbing against your clothing. Do not cover the incision with an airtight bandage. Change the bandage daily. Do not remove steri strips. The strips will fall off on their own. Follow Up Care Please Follow Up With: Ke Garcia MD When: Pacer follow-up on February 07 at 10 AM Test Results: Test results from this visit will be discussed in further detail at your follow- up appointment, if applicable. Discharge Plan Admission Admit Date/Time: 01/30/23 21:29 Attending Provider: Teofilo Sy Primary Care Provider: Angelique Grossman Consulting Providers: Eddi Gordon; Ke Garcia Discharge Orders/Prescriptions Prescriptions: Continued multivitamin Tablet 1 tab PO QAM montelukast 10 mg tablet 10 mg PO QPM Qty: 30 3RF ferrous sulfate [FeroSul] 325 mg (65 mg iron) tablet 325 mg PO DAILY cephalexin 500 mg capsule 500 mg PO Q6H 10 Days Qty: 40 0RF epinephrine 0.3 MG/0.3 ML auto-injector 0.3 mg IJ PRN PRN (Reason: Anaphylaxis) acetaminophen 500 MG tablet 1,000 mg PO BID PRN PRN (Reason: Pain) albuterol sulfate 2.5 mg /3 mL (0.083 %) solution for nebulization 2.5 mg INHALATION Q6H PRN (Reason: shortness of breath or wheezing) sertraline 100 mg tablet 100 mg PO DAILY Qty: 90 1RF fluticasone propionate 50 mcg/actuation spray,suspension 2 spray intranasal DAILY Qty: 16 3RF chlorthalidone 25 mg tablet 25 mg PO DAILY Qty: 90 3RF nystatin-triamcinolone 100,000-0.1 unit/g-% cream 1 applic topical BID PRN (Reason: rash) Qty: 30 1RF levothyroxine 75 mcg tablet 75 mcg PO DAILY Qty: 90 3RF fluticasone propion-salmeterol 230-21 mcg/actuation HFA aerosol inhaler 2 puff INHALATION BID Qty: 1 11RF Spiriva Respimat 2.5 mcg/actuation mist 2 puff INHALATION QDAY Qty: 1 11RF albuterol sulfate 90 mcg/actuation HFA aerosol inhaler 2 puff INHALATION Q4H PRN PRN (Reason: Sob &/Or Wheezing) Qty: 1 6RF nitroglycerin 0.4 mg tablet, sublingual 0.4 mg sublingual Q5-15M PRN (Reason: CHEST PAIN) Qty: 25 3RF famotidine 40 mg tablet 40 mg PO DAILY Qty: 90 3RF Referrals / Follow Up: Ke Garcia MD [Med Staff - Active Staff] - Within 1 Month Angelique Grossman MD [Primary Care Provider] - Within 1 Week Disposition Disposition (needs filled in before D/C Order can be placed): Home, Self Care
[2023-02-01 14:12] VITALS: PULSE 80; RESP 18
[2023-02-01 14:34] VITALS: BP 145/75; PULSE 80; RESP 16; TEMP 36.4; O2SAT 100
--- NOTE | 2023-02-01 16:30 | PCM.DC.SUM ---
Providers Date of Admission: 01/30/23 Primary Care Physician: Dr. Angelique Grossman MD Consultations 01/30/23 23:12 Consult: Cardiology Routine Consulting Provider: eK Garcia Reason for Consult: Complete heart block EMERGENT Consult: No MD Notified: Yes Date Notified: 01/30/23 Time Notified: 21:39 Method of Notification: ED Physician Initiated Reason For Visit: COMPLETE HEART BLOCK Diagnosis Discharge Diagnosis (1) CHB (complete heart block): Status: Acute Code(s): I44.2 - Atrioventricular block, complete (2) Aortic stenosis: Status: Acute Code(s): I35.0 - Nonrheumatic aortic (valve) stenosis (3) Essential (primary) hypertension: Status: Chronic Code(s): I10 - Essential (primary) hypertension Plan 1. Syncope secondary to complete heart block/HTN/HLD/aortic stenosis ? We will consult cardiology for pacemaker placement today on ? He is to follow-up with [facility] for his aortic valve replacement surgery ? Appreciate cardiology assistance, can resume his blood pressure medications after his pacemaker 2. Right cota cellulitis ? He has a skin tear that was being treated as an outpatient with Keflex which will be continued here in the hospital 3. Hypothyroidism ? Stable ? Continue with Synthroid 4. Anxiety/depression ? Stable ? Continue Zoloft DVT: SCDs Medications at Discharge Home Medications acetaminophen 500 mg tablet 1,000 mg PO BID PRN PRN Pain 12/04/18 epinephrine 0.3 mg/0.3 mL injection, auto-injector 0.3 mg IJ PRN PRN Anaphylaxis 12/04/18 multivitamin 1 tab PO QAM vitamin 04/19/19 sertraline 100 mg tablet 100 mg PO DAILY mental health #90 tabs 06/10/22 fluticasone propionate 50 mcg/actuation nasal spray,suspension 2 spray intranasal DAILY allergies #16 grams 06/27/22 chlorthalidone 25 mg tablet 25 mg PO DAILY blood pressure #90 tabs 07/08/22 nystatin-triamcinolone 100,000 unit/g-0.1 % topical cream 1 applic topical BID PRN rash #30 grams 07/25/22 levothyroxine 75 mcg tablet 75 mcg PO DAILY thyroid #90 tabs 08/12/22 fluticasone propionate 230 mcg-salmeterol 21 mcg/actuation HFA inhaler 2 puff inhalation BID breathing #1 device 08/23/22 tiotropium bromide 2.5 mcg/actuation mist for inhalation (Spiriva Respimat) 2 puff inhalation QDAY breathing #1 ea 08/23/22 montelukast 10 mg tablet 10 mg PO QPM allergies #30 tabs 09/27/22 albuterol sulfate 90 mcg/actuation aerosol inhaler 2 puff inhalation Q4H PRN PRN Sob &/Or Wheezing #1 ea 10/29/22 ferrous sulfate 325 mg (65 mg iron) tablet (FeroSul) 325 mg PO DAILY 11/29/22 nitroglycerin 0.4 mg sublingual tablet 0.4 mg sublingual Q5-15M PRN CHEST PAIN #25 tabs 12/02/22 famotidine 40 mg tablet 40 mg PO DAILY reflux #90 tabs 01/02/23 albuterol sulfate 2.5 mg/3 mL (0.083 %) solution for nebulization 2.5 mg inhalation Q6H PRN shortness of breath or wheezing 01/30/23 cephalexin 500 mg capsule 500 mg PO Q6H infection 10 days #40 caps 01/30/23 Hospital Course Operations None Procedures - (Pacemaker placement) Summary of Care Provided Minutes Spent on Discharge: 32 Hospital Course: Per HPI: CARISSA VANG, is a 82 M with a significant history of kidney disease; hypertension; nonrheumatic aortic valve stenosis who presents to the emergency department with syncope. Reportedly his symptoms happened about 30 before presentation and he was brought in by the paramedics. While he and family was walking the dog he had some chest tightness and shortness of breath. He said he was going down then turned black. This patient had heart catheterization about 3 days before presentation. He reports that there is a plan for him to have an aortic valve replacement at [facility]. Hospital Course: 1. syncope secondary to complete heart block/HTN/HLD/aortic stenosis?82-year-old male who presented to the hospital syncope was found to be bradycardic and it was determined by cardiology that he was in complete heart block. He had had a cardiac cath 3 days prior to admission and has had plans to follow-up at a tertiary center for evaluation of his moderately severe aortic stenosis. He underwent placement of a pacemaker which has fixed his heart rate and he does not feel short of breath or lightheaded or dizzy. Chest x-ray on the day of discharge not demonstrated pneumothorax and the leads were in the right place and so he was cleared for discharge by cardiology. I discussed with him the plan for discharge today and he expressed understanding of the risk and benefits of going home and would like to go home today. 2. Right cota cellulitis?started on treatment the day prior to admission so he was continued on his Keflex while here and he can resume his home prescription on discharge. 3. Hypothyroidism, anxiety, depression are chronic medical conditions which complicate his care. His home medications were continued where appropriate Physical Exam Narrative General: Alert, Oriented x3, Cooperative, No apparent distress HEENT: Atraumatic, PERRLA, EOMI, Normocephalic Oral: Moist Mucosa Neck: Supple, No JVD Lungs: Diminished, Normal air movement, No rhonchi, No wheeze, No rales Cardiovascular: Regular rate, Regular Rhythm, Normal S1, Normal S2, murmurs Abdomen: Soft, Non Tender, Non-Distended, No Hepato-splenomegaly Extremities: Edema, Capillary Refill Less than 3 Seconds Skin: Right cota skin tear Musculoskeletal: No Tenderness to Palpation of Joints or Extremities Neurological: Cranial nerves II-XII grossly intact, Motor Exam 5/5 strength throughout, Sensory exam intact to light touch and pain Psych/Mental Status: Normal Affect, Appropriate Weight / BMI Weight Weight: 195 lb 5.273 oz Body Mass Index (BMI) 28.8 ABG / Lab / Microbiology Data 02/01/23 06:25 02/01/23 06:25 Laboratory: Laboratory Results - last 24 hr 02/01/23 06:25: WBC 7.2, RBC 3.72 L, Hgb 10.9 L, Hct 35.2 L, MCV 94.6 H, MCH 29.3, MCHC 31.0 L, RDW Std Deviation 50.6 H, RDW Coeff of John 14.6, Plt Count 172, MPV 10.8, Immature Gran % (Auto) 0.800, Neut % (Auto) 81.6 H, Lymph % (Auto) 5.4 L, Aiken % (Auto) 11.3 H, Eos % (Auto) 0.6, Baso % (Auto) 0.3, Absolute Neuts (auto) 5.9, Absolute Lymphs (auto) 0.39 L, Nucleated RBC % 0, Sodium 140, Potassium 4.0, Chloride 113 H, Carbon Dioxide 20.0 L, Anion Gap 7, BUN 27 H, Creatinine 1.40 H, Estim Creat Clear Calc 39.28, Est GFR (MDRD) Af Amer 62, Est GFR (MDRD) Non-Af 51 L, BUN/Creatinine Ratio 19.3, Glucose 131 H, Calcium 8.2 L Radiography Diagnostic Testing: Radiology Impression Chest X-Ray 02/01/23 05:40 IMPRESSION: Left chest pacer with leads overlying the right atrium and right ventricle. No pneumothorax identified. Electronically Signed: Alirio Merritt MD at 6:49 EDT , D/C Instructions Discharge Diet: Low fat / Low cholesterol May shower in (days): 2 Additional Activity Instructions: May shower or bathe on [day 3]. Do not scrub the incision or soak in the tub. Just wash with soap and let the water run over the incision. Gently pat dry with towel. Medications: Take your pain medication as directed. Refer to your discharge instruction sheet for a list of medications you are to take. Call your doctor if your incision/area has: Continuous Slow Oozing, Increased Redness and Foul Smelling Discharge Call your doctor if you observe: Fever of 101 or Higher, Shortness of breath, Dizziness, Fainting spells, Swelling in the ankles, Chest pain and Increased palpitations (irregular heartbeat) Suture Line Care: Avoid Pulling/Pushing and Avoid Pinching/Bending Additional Dressing/Incision Instructions: When dressing is removed, wash and dry incision. Keep covered with a light bandage if it is rubbing against your clothing. Do not cover the incision with an airtight bandage. Change the bandage daily. Do not remove steri strips. The strips will fall off on their own. Please Follow Up With: Ke Garcia MD When: Pacer follow-up on February 07 at 10 AM Meaningful Use Info Meaningful Use Diagnoses (Choose all that apply): None applicable Discharge Plan Admission Admit Date/Time: 01/30/23 21:29 Attending Provider: Teofilo Sy Primary Care Provider: Angelique Grossman Consulting Providers: Eddi Gordon; Ke Garcia Discharge Orders/Prescriptions Prescriptions: Continued multivitamin Tablet 1 tab PO QAM montelukast 10 mg tablet 10 mg PO QPM Qty: 30 3RF ferrous sulfate [FeroSul] 325 mg (65 mg iron) tablet 325 mg PO DAILY cephalexin 500 mg capsule 500 mg PO Q6H 10 Days Qty: 40 0RF epinephrine 0.3 MG/0.3 ML auto-injector 0.3 mg IJ PRN PRN (Reason: Anaphylaxis) acetaminophen 500 MG tablet 1,000 mg PO BID PRN PRN (Reason: Pain) albuterol sulfate 2.5 mg /3 mL (0.083 %) solution for nebulization 2.5 mg INHALATION Q6H PRN (Reason: shortness of breath or wheezing) sertraline 100 mg tablet 100 mg PO DAILY Qty: 90 1RF fluticasone propionate 50 mcg/actuation spray,suspension 2 spray intranasal DAILY Qty: 16 3RF chlorthalidone 25 mg tablet 25 mg PO DAILY Qty: 90 3RF nystatin-triamcinolone 100,000-0.1 unit/g-% cream 1 applic topical BID PRN (Reason: rash) Qty: 30 1RF levothyroxine 75 mcg tablet 75 mcg PO DAILY Qty: 90 3RF fluticasone propion-salmeterol 230-21 mcg/actuation HFA aerosol inhaler 2 puff INHALATION BID Qty: 1 11RF Spiriva Respimat 2.5 mcg/actuation mist 2 puff INHALATION QDAY Qty: 1 11RF albuterol sulfate 90 mcg/actuation HFA aerosol inhaler 2 puff INHALATION Q4H PRN PRN (Reason: Sob &/Or Wheezing) Qty: 1 6RF nitroglycerin 0.4 mg tablet, sublingual 0.4 mg sublingual Q5-15M PRN (Reason: CHEST PAIN) Qty: 25 3RF famotidine 40 mg tablet 40 mg PO DAILY Qty: 90 3RF Referrals / Follow Up: Ke Garcia MD [Med Staff - Active Staff] - Within 1 Month Angelique Grossman MD [Primary Care Provider] - Within 1 Week Disposition Disposition (needs filled in before D/C Order can be placed): Home, Self Care Charges/Coding Visit Charges Inpatient E&M: 98989 Disch Hosp >30min
== END 2023-02-01 14:52 | disposition home or self-care (01) | DRG 244 ==
LOC: ED 21:39 → ICU 21:43 → PCU 02-01 12:20
PROVIDERS: Admitting Provider Hospitalist; Emergency Provider Emergency Medicine; PCP Internal Medicine; Visit Provider Family Medicine
DX: I44.2 Atrioventricular block, complete (principal); D63.1 Anemia in chronic kidney disease; N18.32 Chronic kidney disease, stage 3b; I48.91 Unspecified atrial fibrillation; I12.9 Hypertensive chronic kidney disease with stage 1 through stage 4 chronic kidney disease, or unspecified chronic kidney disease; E03.9 Hypothyroidism, unspecified; F32.A Depression, unspecified; I35.0 Nonrheumatic aortic (valve) stenosis; E78.5 Hyperlipidemia, unspecified; F41.9 Anxiety disorder, unspecified; M79.672 Pain in left foot; M79.89 Other specified soft tissue disorders; Z79.899 Other long term (current) drug therapy
CPT/HCPCS: 33208; 33210; 36415; 70450; 71045; 71046; 80048; 85025; 85610; 85730; 93005; 93458; 94640; 94668; 94762; 99152; 99153; 99252; 99285; C1760; J7030; J7050; A4216; C1769; C1894; G0463; Q9967

== ENCOUNTER → 2023-02-05 | Outpatient (CLI) | payer MEDICARE, SELFPAY ==
--- NOTE | 2023-02-05 14:53 | VDLE_ITS ---
Reason For Study: Left leg swelling RIGHT LEFT CFV is compressible, spontaneous, phasic, GSV is normal. competent and demonstrates normal CFV is compressible, spontaneous, phasic, augmentation. competent, and demonstrates normal Procedure augmentation. This is a venous duplex using B-mode, color FV is compressible, spontaneous, phasic, flow and spectral Doppler. competent and demonstrates normal Exam performed in department. augmentation. A preliminary report was called and/or faxed POP V is compressible, spontaneous, phasic, to Dr. Grossman. competent and demonstrates normal augmentation. T/P Trunk is compressible. PTV is compressible. LT PerV is compressible. VL/Venous Duplex US, Unilateral Interpretation Summary Deep veins of the left lower extremity are patent and compressible segmentally. There is no evidence of left lower extremity deep vein thrombosis. The left great saphenous vein hoa ears patent and compressible segmentally. Ordering Physician: Angelique Grossman Referring Physician: Angelique Grossman Performed By: Helen Arellano RVT
--- NOTE | 2023-02-05 15:20 | RAD_ITS ---
EXAM: XR LEFT FOOT COMPLETE, 3 OR MORE VIEWS CLINICAL INDICATION: Left foot swelling -- VL FIRST, WILL CALL WHEN READY TECHNIQUE: Frontal, lateral and oblique views of the left foot. COMPARISON: No relevant prior studies available. FINDINGS: BONES/JOINTS: First metatarsal phalangeal joint and first interphalangeal joint arthrosis. Additional arthrosis throughout the remainder of the interphalangeal joints. Calcaneal spurs. No acute fracture. No subluxation. Normal alignment. No sclerotic or destructive changes observed. SOFT TISSUES: Diffuse soft tissue swelling. No radiopaque foreign body. VASCULATURE: Vascular calcifications. RAD/Foot min 3 Views IMPRESSION: Diffuse soft tissue swelling. Degenerative changes. No acute osseous findings. Electronically Signed: Byron Pritchard DO at 22:16 EDT ,
== END | disposition home or self-care (01) ==
PROVIDERS: PCP Internal Medicine; Referring Provider Internal Medicine; Visit Provider Internal Medicine
DX: M79.672 Pain in left foot (principal); M79.89 Other specified soft tissue disorders; L03.115 Cellulitis of right lower limb
CPT/HCPCS: 73630; 93971

== ENCOUNTER 2023-02-06 20:40 | Inpatient (IN) | payer MEDICARE, SELFPAY ==
[2023-02-06 20:43] VITALS: BP 145/69; PULSE 91; RESP 20; TEMP 36.8; O2SAT 96; BMI 28.2
--- NOTE | 2023-02-06 21:03 | CT_ITS ---
INDICATION: trauma EXAMINATION: CT BRAIN - CT Head or Brain W/O Contrast Injection TECHNIQUE: Serial CT axial images were obtained of the head without intravenous contrast. A radiation dose optimization technique was used for this scan. COMPARISON: None. Findings: Serial CT axial images of the head without contrast. BRAIN PARENCHYMA: Diffuse periventricular hypoattenuation likely chronic white matter ischemic changes. Mild diffuse volume loss. No evidence of intraparenchymal hemorrhage or hyperattenuating extra-axial fluid collection. VASCULAR STRUCTURES: Atherosclerotic vascular calcifications. BONES: Frontoethmoid and left maxillary sinus mucosal thickening. SCALP/REMAINING SOFT TISSUES: Right lateral scalp hematoma. ASPECTS Score for Acute Strokes, if applicable: 10 CT/Brain/Head without Contrast IMPRESSION: Age-related changes as above, without evidence of acute intracranial hemorrhage in this noncontrast head CT. Scalp injury and sinus disease. Electronically Signed: Homero Shaffer MD at 21:52 EDT ,
--- NOTE | 2023-02-06 21:03 | CT_ITS ---
INDICATION: trauma EXAMINATION: CT SPINE - CT Spine Cervical W/O Contrast Injection COMPARISON: None. A radiation dose optimization technique was used for this scan. Findings: Serial CT axial images through the cervical spine, with coronal and sagittal reformatted series. BONES: Incidental midline posterior C1 arch development of fusion anomaly. No evidence of cervical spine fracture or subluxation. No concerning bony lesion or abnormal sclerosis to suggest lesion. DISCS/JOINTS: Moderate to severe bilateral mid cervical neuroforaminal narrowing. SOFT TISSUES: Soft tissue structures are unremarkable. CT/Spine Cervical without Contras IMPRESSION: Cervical spine without evidence of acute fracture. Neuroforaminal narrowing. Electronically Signed: Homero Shaffer MD at 21:59 EDT ,
--- NOTE | 2023-02-06 21:05 | ED.VIS.FALL ---
HPI HPI - Fall History of Present Illness Chief Complaint: Fall Detail of Chief Complaint: Fall with head injury Informant: patient Narrative Narrative: Patient presents the emergency department after sustaining a fall. Patient brought in by EMS. Patient states that his dog was outside on the lead and he was bring the dog and when he tripped over the uneven portion of his front stoop and fell and hit his head on the concrete. No loss of consciousness. He is not on blood thinners. He denies neck pain. Did sustain a skin tear to his right elbow and a laceration to the back of his head. Denies any other injuries. 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, right Diverticulosis Diverticulosis Essential (primary) hypertension Gout Hay fever History of deep vein thrombosis of lower extremity HLD (hyperlipidemia) Hypothyroidism Iron deficiency anemia due to chronic blood loss Left ventricular diastolic dysfunction Leg wound, left Macular degeneration Non-pressure chronic ulcer of left calf with fat layer exposed Nonrheumatic aortic (valve) stenosis Osteoarthritis Pleural plaque Presence of cardiac pacemaker Pulmonary nodule Right knee DJD Secondary pulmonary arterial hypertension Skin cancer Traumatic open wound of right lower leg with infection Venous ulcer with fat layer exposed Home Medications acetaminophen 500 mg tablet 1,000 mg PO BID PRN PRN Pain 12/04/18 [History Last Taken 12/03/18] epinephrine 0.3 mg/0.3 mL injection, auto-injector 0.3 mg IJ PRN PRN Anaphylaxis 12/04/18 [History Last Taken Unknown] multivitamin 1 tab PO QAM vitamin 04/19/19 [History Last Taken Unknown] sertraline 100 mg tablet 100 mg PO DAILY mental health #90 tabs 06/10/22 [Rx Last Taken 01/27/23] fluticasone propionate 50 mcg/actuation nasal spray,suspension 2 spray intranasal DAILY allergies #16 grams 06/27/22 [Rx Last Taken Unknown] chlorthalidone 25 mg tablet 25 mg PO DAILY blood pressure #90 tabs 07/08/22 [Rx Last Taken Unknown] nystatin-triamcinolone 100,000 unit/g-0.1 % topical cream 1 applic topical BID PRN rash #30 grams 07/25/22 [Rx Last Taken Unknown] levothyroxine 75 mcg tablet 75 mcg PO DAILY thyroid #90 tabs 08/12/22 [Rx Last Taken 01/27/23] fluticasone propionate 230 mcg-salmeterol 21 mcg/actuation HFA inhaler 2 puff inhalation BID breathing #1 device 08/23/22 [Rx Last Taken Unknown] tiotropium bromide 2.5 mcg/actuation mist for inhalation (Spiriva Respimat) 2 puff inhalation QDAY breathing #1 ea 08/23/22 [Rx Last Taken Unknown] montelukast 10 mg tablet 10 mg PO QPM allergies #30 tabs 09/27/22 [Rx Last Taken Unknown] albuterol sulfate 90 mcg/actuation aerosol inhaler 2 puff inhalation Q4H PRN PRN Sob &/Or Wheezing #1 ea 10/29/22 [Rx Last Taken Unknown] ferrous sulfate 325 mg (65 mg iron) tablet (FeroSul) 325 mg PO DAILY iron 11/29/22 [History Last Taken Unknown] nitroglycerin 0.4 mg sublingual tablet 0.4 mg sublingual Q5-15M PRN CHEST PAIN #25 tabs 12/02/22 [Rx Last Taken Unknown] famotidine 40 mg tablet 40 mg PO DAILY reflux #90 tabs 01/02/23 [Rx Last Taken Unknown] albuterol sulfate 2.5 mg/3 mL (0.083 %) solution for nebulization 2.5 mg inhalation Q6H PRN shortness of breath or wheezing 01/30/23 [History Last Taken Unknown] cephalexin 500 mg capsule 500 mg PO Q6H infection 10 days #40 caps 01/30/23 [Rx Last Taken Unknown] Allergy/AdvReac Type Severity Reaction Status Date / Time indomethacin [From Indocin] AdvReac Intermediate Itching Verified 02/06/23 20:42 indomethacin sodium AdvReac Intermediate Itching Verified 02/06/23 20:42 [From Indocin] oxycodone HCl [From Percocet] AdvReac Intermediate Itching Verified 02/06/23 20:42 Family History Father Heart disease Colon cancer Sister Diabetes Mother Breast cancer Surgical History H/O hernia repair H/O prostatectomy H/O shoulder surgery H/O total knee replacement History of appendectomy History of appendectomy History of carpal tunnel surgery History of hernia repair History of left heart catheterization (02/25/22) History of prostatectomy History of total knee replacement History of total left hip replacement History of total left hip replacement Social History household members: spouse housing: house Smoking Status: Never smoker second hand exposure: Yes alcohol intake: current alcohol intake frequency: holidays/special occasions only Alcohol type: beer substance use type: does not use caffeine: Yes Type: coffee Number of servings: 2 what type of physical activity do you participate in: walking frequency: daily giancarlo/latter day: Religion seatbelt use: always do you feel safe at home: Yes ROS ROS ED Review of Systems ROS Unobtainable: other Constitutional Constitutional ED: Reports lethargy; Denies chills, fever(s), sweats or weight loss Eyes Eyes: Denies blurry vision, change in vision or diplopia ENT ENT ED: Reports other Details: Head injury/scalp laceration ; Denies rhinorrhea or sore throat Cardiovascular Cardiovascular: Reports racing heartbeat; Denies chest pain or orthopnea Respiratory/Chest Respiratory/Chest: Denies cough, dyspnea, dyspnea on exertion, orthopnea or sputum Gastrointestinal Gastrointestinal: Denies abdominal pain, diarrhea, nausea or vomiting Genitourinary Genitourinary ED: Denies dysuria, hematuria or urinary frequency Musculoskeletal Musculoskeletal: Denies arthralgias, back pain, myalgias or neck pain Integumentary Reports other Details: Skin tear to right elbow ; Denies abscess, Abrasions or rash Neurologic Neurologic: Denies headache(s) or weakness Psychiatric Psychiatric: Denies anxiety, depression or suicidal thoughts Endocrine Endocrinology: Denies polydipsia, polyphagia or polyuria Hematologic/Lymphatic Hematologic/Lymphatic: Denies easy bleeding, easy bruising or lymphadenopathy Allergic/Immunologic Allergic/Immunologic ED: Denies mouth swelling, tongue swelling or urticaria EXAM Physical Exam Const Vital Signs: 02/06/23 20:43 02/06/23 20:50 02/06/23 22:41 Temperature 98.3 F Temperature Source Temporal Pulse Rate 91 Respiratory Rate 20 H 18 Respiratory Effort Normal Non-Labored Respiratory Depth Normal Respiratory Pattern Normal Blood Pressure 145/69 H Blood Pressure Mean 94 Pulse Ox 96 Oxygen Delivery Method Room Air Room Air Positive well nourished and well developed General Appearance ED: well developed and NAD HEENT Reports TM's clear and moist mucous membranes normocephalic and atraumatic; Negative for trauma or tenderness Tympanic Membrane ED: Yes TM's clear Eyes PERRL and EOMs intact bilaterally General Eye ED: Negative for pale conjunctiva or scleral icterus Neck no lymphadenopathy, supple and no JVD General: Negative for tenderness Chest Wall inspection of chest normal and palpation of chest normal Chest: Negative for tenderness Resp normal respiratory effort and clear to auscultation bilaterally Effort and Inspection: Negative for respiratory distress or pain with movement Auscultation: Negative for rhonchi, wheezes or diminished lung sounds Cardio regular rate, regular rhythm, S1 normal heart sound, S2 normal heart sound and no murmurs Peripheral Pulses: pulses 2+ throughout GI normal to inspection, nondistended, normoactive bowel sounds, soft to palpation, non-tender, non-distended and no masses Back/Spine no CVA tenderness and no thoracic nor lumbar tenderness Extremity normal to inspection General Extremety ED: Negative for edema General Extremity: Negative for edema Neuro oriented x3, CN's II-XII intact bilaterally, no sensory deficits noted and gait normal Sensorium / Orientation: awake, alert, oriented to person, oriented to place and oriented to time Motor Exam: strength 5/5 throughout and strength abnormal Psych mental status grossly normal Skin no rashes or lesions noted and no wounds Skin Narrative: Skin tear to right elbow. No bony tenderness on exam. Normal range of motion. No deformity. Neurovascular intact distally. MDM MDM MDM Narrative Medical decision making narrative: Patient presents with mechanical fall with head injury and laceration to his scalp. CT scan of the brain without contrast showed no intracranial hemorrhage or skull fracture. Patient also had CT of C-spine that showed degenerative changes but no fractures. X-rays of the right hip and pelvis obtained given complaint of some discomfort. X-ray of right hip showed a right femoral neck fracture. X-rays of the right elbow obtained showed no fractures. Chest x-ray unremarkable. CBC with differential obtained showed a white count 6.8 with platelets of 240. Chemistries unremarkable. BUN 35 and creatinine 1.59. Case discussed with Dr. Andrews who is on for orthopedics. He asked that we keep patient n.p.o. tomorrow. Case will be discussed with hospitalist to evaluate patient for admission. I did repair patient's scalp laceration please see procedure note. Lab Data Attestation: I reviewed the patient's lab results. Labs: Laboratory Results - last 24 hr 02/06/23 21:55 WBC 6.8 RBC 3.82 L Hgb 11.0 L Hct 35.3 L MCV 92.4 MCH 28.8 MCHC 31.2 L RDW Std Deviation 47.8 H RDW Coeff of John 14.1 Plt Count 240 MPV 9.8 Immature Gran % (Auto) 2.200 H Neut % (Auto) 78.8 H Lymph % (Auto) 8.8 L [place] % (Auto) 7.4 Eos % (Auto) 2.4 Baso % (Auto) 0.4 Absolute Neuts (auto) 5.4 Absolute Lymphs (auto) 0.60 L Nucleated RBC % 0 Differential Comment SCANNED Sodium 136 Potassium 4.1 Chloride 108 H Carbon Dioxide 24.0 Anion Gap 4 L BUN 35 H Creatinine 1.59 H Estim Creat Clear Calc 33.46 Est GFR (MDRD) Af Amer 54 L Est GFR (MDRD) Non-Af 44 L BUN/Creatinine Ratio 22.0 H Glucose 112 H Calcium 8.9 Radiography Diagnostic Testing: Clinical Impression(s) from Imaging Studies Brain CT 02/06/23 21:03 IMPRESSION: Age-related changes as above, without evidence of acute intracranial hemorrhage in this noncontrast head CT. Scalp injury and sinus disease. Electronically Signed: Homero Shaffer MD at 21:52 EDT , Cervical Spine CT 02/06/23 21:03 IMPRESSION: Cervical spine without evidence of acute fracture. Neuroforaminal narrowing. Electronically Signed: Homero Shaffer MD at 21:59 EDT , Chest X-Ray 02/06/23 21:25 IMPRESSION: Stable with no acute disease. Electronically Signed: Homero Shaffer MD at 22:29 EDT , Elbow X-Ray 02/06/23 21:25 IMPRESSION: No acute osseous abnormality of the right elbow. Electronically Signed: Homero Shaffer MD at 22:32 EDT , Hip/Pelvis X-Ray 02/06/23 21:25 IMPRESSION: Right femoral neck fracture. Electronically Signed: Homero Shaffer MD at 22:42 EDT , Three-view x-rays of the right elbow obtained interpreted by myself as no evidence of fracture or dislocation. Radiology in agreement. 1 view chest x-ray obtained interpreted by myself as no evidence of fracture or dislocation. Radiology in agreement. Three-view x-rays of right hip and pelvis obtained interpreted by myself as right femoral neck fracture. Radiology in agreement. EKG Initial EKG: Attestation: I personally reviewed and interpreted this EKG as follows: Comments: Sinus rhythm with a rate of 84 bpm with right bundle branch block and no acute ST segment changes Procedures Lacerations Scalp laceration: Length: 1.18 in Depth: Sub Q Shape: Linear Prep: Sterile Conditions Laceration repair: Irrigated, Lidocaine with epi and Local Irrigated (ml): 100 Number of Sutures/Germfask: 3 Suture Information: Ethilon, Simple and 4-0 Discharge Plan Dx/Rx/DC Orders Clinical Impression: Closed head injury, Fall, Laceration of scalp, Closed fracture of right hip Disposition Disposition: Acute Care Hospital [facility]
--- NOTE | 2023-02-06 21:25 | RAD_ITS ---
INDICATION: injury EXAMINATION/TECHNIQUE: X-RAY - RIGHT XR Elbow Min 3 Views COMPARISON: None. FINDINGS: 3 views of the right elbow. BONES: Normal anatomic alignment without evidence of fracture or subluxation. No concerning bony lesion or abnormal sclerosis to suggest lesion. JOINTS: No significant degenerative change. SOFT TISSUES: Chronic curvilinear calcification off the medial left epicondyle. Dense atherosclerotic vascular calcifications. Small olecranon enthesophyte. RAD/Elbow min 3 Views IMPRESSION: No acute osseous abnormality of the right elbow. Electronically Signed: Homero Shaffer MD at 22:32 EDT ,
--- NOTE | 2023-02-06 21:25 | RAD_ITS ---
INDICATION: fall EXAMINATION/TECHNIQUE: X-RAY - XR Chest 1 View COMPARISON: Chest radiograph 02/01/[address] 12/06/2017.. Findings: Single frontal view of the chest. LUNG PARENCHYMA: No acute focal airspace disease or mass lesion. PLEURA: Stable densely calcified bilateral pleural plaques again noted. No pleural effusion. No pneumothorax. HEART/[employer]: Cardiomediastinal silhouette is enlarged. Left chest multilead pacemaker device in place. BONES: Osseous structures are unremarkable for age. RAD/Chest 1 View (Portable) IMPRESSION: Stable with no acute disease. Electronically Signed: Homero Shaffer MD at 22:29 EDT ,
--- NOTE | 2023-02-06 21:25 | RAD_ITS ---
INDICATION: fall EXAMINATION/TECHNIQUE: X-RAY - RIGHT XR Hip Unilateral with Pelvis when performed; 2-3 Views COMPARISON: 07/26/2013 hip and pelvis radiographs. FINDINGS: Single frontal view of the pelvis. 2 views of the right hip. Impacted right femoral neck fracture. No other definite acute osseous abnormality. Left total hip arthroplasty, only partially imaged, although no obvious hardware complication. Dense atherosclerotic vascular calcifications. RAD/HIP, UNI W/ Pelvis 2-3 Views IMPRESSION: Right femoral neck fracture. Electronically Signed: Homero Shaffer MD at 22:42 EDT ,
--- NOTE | 2023-02-06 21:25 | EKG12_ITS ---
Test Reason : FALL Blood Pressure : / mmHG Vent. Rate : 084 BPM Atrial Rate : 084 BPM P-R Int : 142 ms QRS Dur : 132 ms QT Int : 390 ms P-R-T Axes : 044 043 018 degrees QTc Int : 460 ms Normal sinus rhythm Right bundle branch block Possible Lateral infarct , age undetermined Abnormal ECG Confirmed by JERMAINE MOULTON, STAICE ([id number]), rewrite editor KRISTINA FERRELL ([id number]) on 02/11/2023 11:32:33 AM Referred By: Confirmed By:JOANNE DEAN MD
[2023-02-06 22:04] LABS: Absolute Neutrophil Count 5.4 X10^3/uL (2.0-7.7); Basophil# 0.03 X10^3/uL; Basophil% 0.4 % (0-1); Eosinophil# 0.16 X10^3/uL; Eosinophils% 2.4 % (0-5); Hematocrit 35.3 % (40-54); Lymphocyte % 8.8 % (19-41); Mean Corp Hgb Conc 31.2 g/dL (32-36); Mean Corpuscular Hgb 28.8 pg (27.0-32.0); Mean Corpuscular Volume 92.4 fL (80-94); Mean Platelet Vol. 9.8 fl (6.2-12.0); Monocyte% 7.4 % (0-10); NRBC Flagged by Analyzer 0 % (0-5); Neutrophil # 5.36 X10^3/uL (2.7-7.7); Neutrophil % 78.8 % (47-70); POSITIVE DIFFERENTIAL YES; Platelet Count 240 K/mm3 (150-450); RBC Distribution Width CV 14.1 % (11.6-14.6); RBC Distribution Width SD 47.8 fl (35.1-43.9); Red Blood Count 3.82 M/mm3 (4.6-6.2); White Blood Count 6.8 K/mm3 (4.4-11.0)
[2023-02-06 22:09] LABS: Differential Indicated SCAN CRITERIA MET
[2023-02-06 22:19] LABS: Anion Gap 4 (5-15); BUN 35 mg/dL (7-18); Calcium,Total 8.9 mg/dL (8.5-10.1); Chloride 108 mmol/L (98-107); Creatinine, Serum 1.59 mg/dL (0.70-1.30); EST Glomerular Filtration Rate 44 mL/min (>60); Est Glom Filt Rate - Afr Amer 54 mL/min (>60); Estimated Creatinine Clearance 33.46 ml/min; Glucose 112 mg/dL (74-106); Potassium 4.1 mmol/L (3.5-5.1); Sodium Level 136 mmol/L (136-145)
[2023-02-06 22:41] VITALS: RESP 18
--- NOTE | 2023-02-06 22:54 | PCM.HP.STD ---
HPI - General General Date of Admission: 02/06/23 Date of Service: 02/06/23 Chief Complaint: Right hip fracture HPI Narrative CARISSA VANG, is a 82 M with history of COPD not on home O2, chronic debility, multiple previous orthopedic surgeries including total hip and total knee replacements, complete heart block s/p pacemaker, severe aortic stenosis, hypertension and hypothyroidism who presented to [facility] ED on 02/06/2023 after a mechanical fall at home. Patient seen at bedside in the ED. Laying comfortably in bed, conversing normally, no acute distress. Patient states that his right hip pain is significantly improved after receiving a dose of IV morphine. Has mild tenderness to palpation in the right hip area, denies any groin pain, denies any nerve pain down the right leg. Patient states that he has a puppy at home, and his mechanical fall secondary to tripping over the dog. Does have history of multiple orthopedic surgeries including a total hip and total knee replacement in the past. Tolerated this procedures well. Has had no issues with anesthesia in the past. He currently denies any fevers or chills. Denies any other pain or discomfort. No other acute concerns. Vitals in ED unremarkable. Labs notable for hemoglobin 11.0 (at baseline), normal BMP, otherwise normal. Hip/pelvic x-ray showed an impacted right femoral neck fracture. CT brain and cervical spine showed an acute scalp injury, no other concerning findings. Chest x-ray is nonacute. 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, right Diverticulosis Diverticulosis Essential (primary) hypertension Gout Hay fever History of deep vein thrombosis of lower extremity HLD (hyperlipidemia) Hypothyroidism Iron deficiency anemia due to chronic blood loss Left ventricular diastolic dysfunction Leg wound, left Macular degeneration Non-pressure chronic ulcer of left calf with fat layer exposed Nonrheumatic aortic (valve) stenosis Osteoarthritis Pleural plaque Presence of cardiac pacemaker Pulmonary nodule Right knee DJD Secondary pulmonary arterial hypertension Skin cancer Traumatic open wound of right lower leg with infection Venous ulcer with fat layer exposed Home Medications acetaminophen 500 mg tablet 1,000 mg PO BID PRN PRN Pain 12/04/18 [History Last Taken 12/03/18] epinephrine 0.3 mg/0.3 mL injection, auto-injector 0.3 mg IJ PRN PRN Anaphylaxis 12/04/18 [History Last Taken Unknown] multivitamin 1 tab PO QAM vitamin 04/19/19 [History Last Taken 02/06/23] sertraline 100 mg tablet 100 mg PO DAILY mental health #90 tabs 06/10/22 [Rx Last Taken 02/06/23] fluticasone propionate 50 mcg/actuation nasal spray,suspension 2 spray intranasal DAILY allergies #16 grams 06/27/22 [Rx Last Taken Unknown] chlorthalidone 25 mg tablet 25 mg PO DAILY blood pressure #90 tabs 07/08/22 [Rx Last Taken 02/06/23] nystatin-triamcinolone 100,000 unit/g-0.1 % topical cream 1 applic topical BID PRN rash #30 grams 07/25/22 [Rx Last Taken Unknown] levothyroxine 75 mcg tablet 75 mcg PO DAILY thyroid #90 tabs 08/12/22 [Rx Last Taken 02/06/23] fluticasone propionate 230 mcg-salmeterol 21 mcg/actuation HFA inhaler 2 puff inhalation BID breathing #1 device 08/23/22 [Rx Last Taken 02/06/23] tiotropium bromide 2.5 mcg/actuation mist for inhalation (Spiriva Respimat) 2 puff inhalation QDAY breathing #1 ea 08/23/22 [Rx Last Taken 02/06/23] montelukast 10 mg tablet 10 mg PO QPM allergies #30 tabs 09/27/22 [Rx Last Taken 02/06/23] albuterol sulfate 90 mcg/actuation aerosol inhaler 2 puff inhalation Q4H PRN PRN Sob &/Or Wheezing #1 ea 10/29/22 [Rx Last Taken Unknown] ferrous sulfate 325 mg (65 mg iron) tablet (FeroSul) 325 mg PO DAILY iron 11/29/22 [History Last Taken 02/06/23] nitroglycerin 0.4 mg sublingual tablet 0.4 mg sublingual Q5-15M PRN CHEST PAIN #25 tabs 12/02/22 [Rx Last Taken Unknown] famotidine 40 mg tablet 40 mg PO DAILY reflux #90 tabs 01/02/23 [Rx Last Taken 02/06/23] albuterol sulfate 2.5 mg/3 mL (0.083 %) solution for nebulization 2.5 mg inhalation Q6H PRN shortness of breath or wheezing 01/30/23 [History Last Taken 02/06/23] cephalexin 500 mg capsule 500 mg PO Q6H infection 10 days #40 caps 01/30/23 [Rx Last Taken 02/06/23] Allergy/AdvReac Type Severity Reaction Status Date / Time indomethacin [From Indocin] AdvReac Intermediate Itching Verified 02/06/23 20:42 indomethacin sodium AdvReac Intermediate Itching Verified 02/06/23 20:42 [From Indocin] oxycodone HCl [From Percocet] AdvReac Intermediate Itching Verified 02/06/23 20:42 Family History Father Heart disease Colon cancer Sister Diabetes Mother Breast cancer Surgical History H/O hernia repair H/O prostatectomy H/O shoulder surgery H/O total knee replacement History of appendectomy History of appendectomy History of carpal tunnel surgery History of hernia repair History of left heart catheterization (02/25/22) History of prostatectomy History of total knee replacement History of total left hip replacement History of total left hip replacement Social History household members: spouse housing: house Smoking Status: Never smoker second hand exposure: Yes alcohol intake: current alcohol intake frequency: holidays/special occasions only Alcohol type: beer substance use type: does not use caffeine: Yes Type: coffee Number of servings: 2 what type of physical activity do you participate in: walking frequency: daily giancarlo/mormonism: Pentec[employer]al seatbelt use: always do you feel safe at home: Yes ROS Constitutional Constitutional: Denies chills, fatigue, fever(s) or weakness Eyes Eyes: Denies change in vision Cardiovascular Cardiovascular: Denies chest pain Respiratory/Chest Respiratory/Chest: Denies cough Gastrointestinal Gastrointestinal: Denies abdominal pain Musculoskeletal Musculoskeletal: Reports other Details: Right lower extremity pain Neurologic Neurologic: Denies confusion, dizziness or syncope Vital Signs Vital Signs Vital Signs: 02/06/23 20:43 02/06/23 20:50 Temperature 98.3 F Temperature Source Temporal Pulse Rate 91 Respiratory Rate 20 H Respiratory Effort Normal Non-Labored Respiratory Depth Normal Respiratory Pattern Normal Blood Pressure 145/69 H Blood Pressure Mean 94 Pulse Ox 96 Oxygen Delivery Method Room Air Room Air Weight Weight: 86.5 kg Body Mass Index (BMI) 28.2 Physical Exam Const alert and oriented x3 Constitutional Narrative: Pleasant elderly male, likely in bed, conversing normally, no acute distress. Notably does have blood on the pillow above his head secondary to known head laceration from mechanical fall, no active bleeding noted. General Appearance: cooperative and comfortable HEENT normocephalic, head/scalp atraumatic, hearing grossly normal bilaterally, nasal mucous membranes and turbinates normal and moist oral mucous membranes Eyes PERRL, EOMs intact bilaterally and conjunctivae normal Neck full ROM, no lymphadenopathy and supple Lymph Lymphatic: no lymphadenopathy noted Chest inspection of chest normal Resp normal respiratory effort, normal air movement, no use of accessory muscles and clear to auscultation bilaterally Cardio regular rate, regular rhythm, no murmurs and peripheral pulses 2+ throughout GI normal to inspection, nondistended, normoactive bowel sounds, soft to palpation, non-tender and non-distended Back/Spine normal ROM Extremity Extremity Narrative: Mild tenderness to palpation of lateral portion of right hip. No groin tenderness to palpation. Did not attempt any movement of the right leg. Skin no rashes or lesions noted Psych mental status grossly normal Results Lab / Micro Data 02/06/23 21:55 02/06/23 21:55 Labs: Laboratory Results - last 24 hr 02/06/23 21:55: WBC 6.8, RBC 3.82 L, Hgb 11.0 L, Hct 35.3 L, MCV 92.4, MCH 28.8, MCHC 31.2 L, RDW Std Deviation 47.8 H, RDW Coeff of John 14.1, Plt Count 240, MPV 9.8, Immature Gran % (Auto) 2.200 H, Neut % (Auto) 78.8 H, Lymph % (Auto) 8.8 L, [place] % (Auto) 7.4, Eos % (Auto) 2.4, Baso % (Auto) 0.4, Absolute Neuts (auto) 5.4, Absolute Lymphs (auto) 0.60 L, Nucleated RBC % 0, Sodium 136, Potassium 4.1, Chloride 108 H, Carbon Dioxide 24.0, Anion Gap 4 L, BUN 35 H, Creatinine 1.59 H, Estim Creat Clear Calc 33.46, Est GFR (MDRD) Af Amer 54 L, Est GFR (MDRD) Non-Af 44 L, BUN/Creatinine Ratio 22.0 H, Glucose 112 H, Calcium 8.[address] 02/06/23 21:03 IMPRESSION: Age-related changes as above, without evidence of acute intracranial hemorrhage in this noncontrast head CT. Scalp injury and sinus disease. Electronically Signed: Homero Shaffer MD at 21:52 EDT , Cervical Spine CT 02/06/23 21:03 IMPRESSION: Cervical spine without evidence of acute fracture. Neuroforaminal narrowing. Electronically Signed: Homero Shaffer MD at 21:59 EDT , Chest X-Ray 02/06/23 21:25 IMPRESSION: Stable with no acute disease. Electronically Signed: Homero Shaffer MD at 22:29 EDT , Elbow X-Ray 02/06/23 21:25 IMPRESSION: No acute osseous abnormality of the right elbow. Electronically Signed: Homero Shaffer MD at 22:32 EDT , Hip/Pelvis X-Ray 02/06/23 21:25 IMPRESSION: Right femoral neck fracture. Electronically Signed: Homero Shaffer MD at 22:42 EDT , Assessment & Plan Assessment/Plan (1) Closed right hip fracture: PLAN: Plan Patient is a 82-year-old male with history of COPD not on home O2, chronic debility, multiple previous orthopedic surgeries including total hip and total knee replacements, complete heart block s/p pacemaker, severe aortic stenosis, hypertension and hypothyroidism who presented to [facility] ED on 02/06/2023 after a mechanical fall at home. 1. Right femoral neck fracture Secondary to mechanical fall in setting of chronic debility as noted below. Hip/pelvic x-ray on admit showed impacted right femoral neck fracture. ? Admit under inpatient status to [facility]. ED physician spoke with Dr. Andrews with orthopedics, planning for surgery tomorrow. N.p.o. at midnight. Preoperative evaluation as noted below. Formal orthopedic consult placed. Pain control with scheduled Tylenol, oxycodone as needed, IV Dilaudid as needed. PT/OT/case management consulted. Monitor CBC daily. 2. Preoperative evaluation ?Planned procedure: ORIF of right hip versus total hip arthroplasty with orthopedics, moderate risk procedure ? Has tolerated both hip and knee replacement surgeries within the last several years without issue ? No history of adverse reactions to anesthesia ? Unclear if patient is able to achieve greater than 4 METS at home, given his chronic debility ? Notable past medical history: COPD, well-controlled on home inhalers, not on home O2, stable on admit. Severe aortic stenosis with pulmonary hypertension, currently being worked up for possible TAVR procedure. ? EKG on admit with no concerning findings. ? Echo on 12/23/2022 showed EF 60%, stage I diastolic dysfunction, aortic valve stenosis with pulmonary hypertension as noted above. ? Labs: Hemoglobin 11.0 on admit, stable at baseline. Platelet count 240. PT/INR ordered. ? Medications: Holding chlorthalidone, can likely resume postoperatively. Okay to continue all other home medications. ? NSQIP score: High risk for requiring skilled nurse facility placement on discharge for rehabilitation, average risk for postoperative complications. ? Patient is medically optimized for procedure from medicine standpoint. 3. Chronic debility Lives at home with his . Prior to this fall, was able to do most things around the house for himself. However has history of multiple orthopedic surgeries including a hip and knee replacement, and uses a walker to ambulate around the home. Does have multiple steps in the home per his report. ? PT/OT/case management consulted. Chronic medical conditions: ? COPD: Stable. Continue home inhalers. ? Hypertension: Holding home chlorthalidone as patient was normotensive in ED and planning for surgery as noted above, restart as able. ? Severe aortic stenosis with pulmonary hypertension: Follows with Dr. Garcia. Planning for TAVR procedure in near future, has not been scheduled yet. ? Hypothyroidism: Continue home Synthroid. ? Depression: Continue home sertraline. DVT prophylaxis: SCDs CODE STATUS: Full code, verified Expected disposition: TBD Total clinical time spent by myself addressing the patient's medical issues, reviewing all the data, and collaborating with patient's care team: 55 minutes. Charges/Coding Visit Charges Inpatient E&M: 45670 Init Hosp L2
[2023-02-06 22:56] LABS: Differential Comment SCANNED
[2023-02-06 23:05] VITALS: BP 138/72; PULSE 77; RESP 18; TEMP 36.8; O2SAT 95
[2023-02-06] MEDS: Ondansetron 4 MG/2 ML Vial IV (23:25)
[2023-02-06] MEDS: Morphine 4 MG/ML Syringe IV (23:25)
[2023-02-06] MEDS: 0.9% Normal Saline (1000mL) 1,000 ML 150 ML IV (23:25)
[2023-02-06] MEDS: Lidocaine 1% /Epi 1:100 (20ml) 20 ML Vial 10 ML INFILT (23:25)
[2023-02-07] VITALS (14 sets, daily range): BP systolic 108–172; BP diastolic 59–89; PULSE 58–100; RESP 14–20; TEMP 36.6–37.7; O2SAT 86–97; BMI 28.0
[2023-02-07] MEDS: Acetaminophen 500 MG Tablet 1000 MG PO ×2 (01:36→16:45)
[2023-02-07] MEDS: MELATONIN 3 MG TABLET PO (01:37)
[2023-02-07] MEDS: Levothyroxine 75 MCG Tablet PO (06:29)
[2023-02-07] MEDS: 0.9% Normal Saline (1000mL) 1,000 ML 150 ML IV ×3 (06:29→17:40)
[2023-02-07] MEDS: HYDROmorphone 0.5 MG/0.5 ML SYRINGE IV ×2 (06:34→20:45)
[2023-02-07] MEDS: Ondansetron 4 MG/2 ML Vial IV (06:34)
[2023-02-07] MEDS: Ipratropium/Albuterol Sulfate 3 ML AMPUL.NEB INHALATION ×2 (06:52→20:07)
[2023-02-07] MEDS: Budesonide Respules 0.5 MG/2 ML AMPUL.NEB. INHALATION ×2 (06:52→20:07)
[2023-02-07 07:03] LABS: Thyroid Stim Hormone (TSH) 7.81 uIU/mL (0.358-3.74)
--- NOTE | 2023-02-07 07:38 | CONS.ORTHO ---
HPI Consult Data Date of Consult: 02/07/23 HPI Narrative Reason for Consultation: Right femoral neck fracture HPI Narrative: CARISSA VANG, is a 82 M who presents after mechanical fall from standing height while he was out walking his dog yesterday onto his right hip. Patient denies any antecedent right hip or groin pain. Patient is a community ambulator without assistive device. Patient was brought to the emergency department by EMS. X-rays revealed an impacted right femoral neck fracture. Patient was admitted under the service of the hospitalist. He reports soft tissue injury to his right elbow but denies significant pain. He denies any syncopal or presyncopal symptoms. Denies any head injury or loss of consciousness. Denies prior issues with anesthesia. Denies fevers, chills, nausea vomiting, chest pain or shortness of breath. 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, right Diverticulosis Diverticulosis Essential (primary) hypertension Gout Hay fever History of deep vein thrombosis of lower extremity HLD (hyperlipidemia) Hypothyroidism Iron deficiency anemia due to chronic blood loss Left ventricular diastolic dysfunction Leg wound, left Macular degeneration Non-pressure chronic ulcer of left calf with fat layer exposed Nonrheumatic aortic (valve) stenosis Osteoarthritis Pleural plaque Presence of cardiac pacemaker Pulmonary nodule Right knee DJD Secondary pulmonary arterial hypertension Skin cancer Traumatic open wound of right lower leg with infection Venous ulcer with fat layer exposed Home Medications acetaminophen 500 mg tablet 1,000 mg PO BID PRN PRN Pain 12/04/18 [History Last Taken 12/03/18] epinephrine 0.3 mg/0.3 mL injection, auto-injector 0.3 mg IJ PRN PRN Anaphylaxis 12/04/18 [History Last Taken Unknown] multivitamin 1 tab PO QAM vitamin 04/19/19 [History Last Taken 02/06/23] sertraline 100 mg tablet 100 mg PO DAILY mental health #90 tabs 06/10/22 [Rx Last Taken 02/06/23] fluticasone propionate 50 mcg/actuation nasal spray,suspension 2 spray intranasal DAILY allergies #16 grams 06/27/22 [Rx Last Taken Unknown] chlorthalidone 25 mg tablet 25 mg PO DAILY blood pressure #90 tabs 07/08/22 [Rx Last Taken 02/06/23] nystatin-triamcinolone 100,000 unit/g-0.1 % topical cream 1 applic topical BID PRN rash #30 grams 07/25/22 [Rx Last Taken Unknown] levothyroxine 75 mcg tablet 75 mcg PO DAILY thyroid #90 tabs 08/12/22 [Rx Last Taken 02/06/23] fluticasone propionate 230 mcg-salmeterol 21 mcg/actuation HFA inhaler 2 puff inhalation BID breathing #1 device 08/23/22 [Rx Last Taken 02/06/23] tiotropium bromide 2.5 mcg/actuation mist for inhalation (Spiriva Respimat) 2 puff inhalation QDAY breathing #1 ea 08/23/22 [Rx Last Taken 02/06/23] montelukast 10 mg tablet 10 mg PO QPM allergies #30 tabs 09/27/22 [Rx Last Taken 02/06/23] albuterol sulfate 90 mcg/actuation aerosol inhaler 2 puff inhalation Q4H PRN PRN Sob &/Or Wheezing #1 ea 10/29/22 [Rx Last Taken Unknown] ferrous sulfate 325 mg (65 mg iron) tablet (FeroSul) 325 mg PO DAILY iron 11/29/22 [History Last Taken 02/06/23] nitroglycerin 0.4 mg sublingual tablet 0.4 mg sublingual Q5-15M PRN CHEST PAIN #25 tabs 12/02/22 [Rx Last Taken Unknown] famotidine 40 mg tablet 40 mg PO DAILY reflux #90 tabs 01/02/23 [Rx Last Taken 02/06/23] albuterol sulfate 2.5 mg/3 mL (0.083 %) solution for nebulization 2.5 mg inhalation Q6H PRN shortness of breath or wheezing 01/30/23 [History Last Taken 02/06/23] cephalexin 500 mg capsule 500 mg PO Q6H infection 10 days #40 caps 01/30/23 [Rx Last Taken 02/06/23] Allergy/AdvReac Type Severity Reaction Status Date / Time indomethacin [From Indocin] AdvReac Intermediate Itching Verified 02/06/23 20:42 indomethacin sodium AdvReac Intermediate Itching Verified 02/06/23 20:42 [From Indocin] oxycodone HCl [From Percocet] AdvReac Intermediate Itching Verified 02/06/23 20:42 Family History Father Heart disease Colon cancer Sister Diabetes Mother Breast cancer Surgical History H/O hernia repair H/O prostatectomy H/O shoulder surgery H/O total knee replacement History of appendectomy History of appendectomy History of carpal tunnel surgery History of hernia repair History of left heart catheterization (02/25/22) History of prostatectomy History of total knee replacement History of total left hip replacement History of total left hip replacement Social History household members: spouse housing: house Smoking Status: Never smoker second hand exposure: Yes alcohol intake: current alcohol intake frequency: holidays/special occasions only Alcohol type: beer substance use type: does not use caffeine: Yes Type: coffee Number of servings: 2 what type of physical activity do you participate in: walking frequency: daily giancarlo/restorationist: [employer] seatbelt use: always do you feel safe at home: Yes ROS ROS Narrative 12 point review systems obtained, negative unless otherwise noted in HPI. Vital Signs Vital Signs Vital Signs: 02/06/23 20:43 02/06/23 20:50 02/06/23 22:41 Temperature 98.3 F Temperature Source Temporal Pulse Rate 91 Respiratory Rate 20 H 18 Respiratory Effort Normal Non-Labored Respiratory Depth Normal Respiratory Pattern Normal Blood Pressure 145/69 H Blood Pressure Mean 94 Blood Pressure Source Blood Pressure Position Blood Pressure Location Pulse Ox 96 Oxygen Delivery Method Room Air Room Air Oxygen Flow Rate (L/min) 02/06/23 23:05 02/07/23 01:12 02/07/23 02:00 Temperature 98.3 F 99.9 F H Temperature Source Temporal Oral Pulse Rate 77 100 Respiratory Rate 18 18 Respiratory Effort Normal Non-Labored Respiratory Depth Normal Respiratory Pattern Normal Blood Pressure 138/72 H 129/69 H Blood Pressure Mean 94 89 Blood Pressure Source Monitor Blood Pressure Position Semi-Fowlers Blood Pressure Location Right Arm Pulse Ox 95 95 Oxygen Delivery Method Room Air Nasal Cannula Nasal Cannula Oxygen Flow Rate (L/min) 2 2 02/07/23 01:45 02/07/23 06:53 02/07/23 06:53 Temperature Temperature Source Pulse Rate 82 Respiratory Rate 16 Respiratory Effort Respiratory Depth Respiratory Pattern Normal Blood Pressure Blood Pressure Mean Blood Pressure Source Blood Pressure Position Blood Pressure Location Pulse Ox 86 94 Oxygen Delivery Method Room Air Nasal Cannula Oxygen Flow Rate (L/min) 2 Weight Weight: 184 lb 11.958 oz Body Mass Index (BMI) 28.0 Physical Exam Narrative General -A&Ox3, NAD, appears stated age. Vital signs stable, afebrile. Respiratory -normal work of breathing, no intercostal retractions. CV -pulses regular, brisk capillary refill ?4 limbs. Abdomen-soft, nontender, nondistended. No guarding, rigidity, rebound tenderness. Musculoskeletal/neurologic -full range of motion nontender throughout bilateral upper extremities, left lower extremity with full sensation and strength in all dermatomes and myotomes. No midline cervical tenderness. Right lower extremity-no obvious deformity. Pain with logroll of the right lower extremity. Nontender throughout the right knee femoral shaft, tibial shaft and right foot/ankle. Brisk capillary refill. Sensation intact light touch L3-S1 dermatomes. DF, PF, EHL intact. DP, PT 2+. Pelvis is stable, nontender. Skin is intact about the right hip. Remote laceration appears healing well along the proximal anterior lateral right lower leg. No erythema or drainage. No ecchymosis noted. Bipedal pitting edema 2+ is present. Calves are soft and nontender. Lab / Micro Data 02/06/23 21:55 02/06/23 21:55 Labs: Laboratory Results - last 24 hr 02/06/23 21:55: WBC 6.8, RBC 3.82 L, Hgb 11.0 L, Hct 35.3 L, MCV 92.4, MCH 28.8, MCHC 31.2 L, RDW Std Deviation 47.8 H, RDW Coeff of John 14.1, Plt Count 240, MPV 9.8, Immature Gran % (Auto) 2.200 H, Neut % (Auto) 78.8 H, Lymph % (Auto) 8.8 L, [place] % (Auto) 7.4, Eos % (Auto) 2.4, Baso % (Auto) 0.4, Absolute Neuts (auto) 5.4, Absolute Lymphs (auto) 0.60 L, Nucleated RBC % 0, Differential Comment SCANNED, Sodium 136, Potassium 4.1, Chloride 108 H, Carbon Dioxide 24.0, Anion Gap 4 L, BUN 35 H, Creatinine 1.59 H, Estim Creat Clear Calc 33.46, Est GFR (MDRD) Af Amer 54 L, Est GFR (MDRD) Non-Af 44 L, BUN/Creatinine Ratio 22.0 H, Glucose 112 H, Calcium 8.9 02/07/23 05:45: TSH 7.81 H, Blood Type A POSITIVE, Antibody Screen NEGATIVE Radiology Impression Brain CT 02/06/23 21:03 IMPRESSION: Age-related changes as above, without evidence of acute intracranial hemorrhage in this noncontrast head CT. Scalp injury and sinus disease. Electronically Signed: Homero Shaffer MD at 21:52 EDT , Cervical Spine CT 02/06/23 21:03 IMPRESSION: Cervical spine without evidence of acute fracture. Neuroforaminal narrowing. Electronically Signed: Homero Shaffer MD at 21:59 EDT , Chest X-Ray 02/06/23 21:25 IMPRESSION: Stable with no acute disease. Electronically Signed: Homero Shaffer MD at 22:29 EDT , Elbow X-Ray 02/06/23 21:25 IMPRESSION: No acute osseous abnormality of the right elbow. Electronically Signed: Homero Shaffer MD at 22:32 EDT , Hip/Pelvis X-Ray 02/06/23 21:25 IMPRESSION: Right femoral neck fracture. Electronically Signed: Homero Shaffer MD at 22:42 EDT , Assessment & Plan Assessment/Plan (1) Closed right hip fracture: QUALIFIERS: Encounter type: initial encounter Qualified Code(s): S72.001A - Fracture of unspecified part of neck of right femur, initial encounter for closed fracture PLAN: Patient sustained a valgus impacted right femoral neck fracture -Closed, neurovascularly intact -Isolated injury -Recommending surgical intervention in the form of right femoral neck percutaneous screw fixation -I discussed the procedure-its risks, benefits and alternative. Risks include but are not limited to bleeding, infection, loss of life or limb, risk of anesthesia, persistent pain or disability, need for additional surgery, nonunion, malunion, failure of orthopedic hardware, neurovascular injury, DVT or PE. Patient expressed understanding these risks and wished proceed with surgery. -Maintenance IV fluids, clear liquid diet after midnight n.p.o. at 2 hours prior to surgery -Type and screen -2 g Ancef on-call to the OR -Bedrest, heel protectors -Plan to proceed with surgery later today when OR becomes available Thank you for this consultation.
[2023-02-07 08:26] LABS: Vitamin D,25 Hydroxy 33.9 ng/mL
[2023-02-07 08:32] LABS: ALB/GLOB Ratio 0.6 RATIO (0.9-2.4); AST(SGOT) 24 U/L (15-37); Alanine Aminotransfer ALT/SGPT 25 U/L (16-61); Albumin, Serum 2.5 g/dL (3.2-5.0); Alkaline Phosphatase 76 U/L (45-117); Anion Gap 7 (5-15); BUN 33 mg/dL (7-18); BUN/Creat Ratio 21.2 RATIO (10-20); Calcium,Total 8.3 mg/dL (8.5-10.1); Chloride 111 mmol/L (98-107); Creatinine, Serum 1.56 mg/dL (0.70-1.30); EST Glomerular Filtration Rate 45 mL/min (>60); Est Glom Filt Rate - Afr Amer 55 mL/min (>60); Globulin 4.4 g/dL (2.2-4.2); Glucose 133 mg/dL (74-106); Potassium 4.2 mmol/L (3.5-5.1); Protein, Total 6.9 g/dL (6.4-8.2); Sodium Level 140 mmol/L (136-145)
--- NOTE | 2023-02-07 08:34 | PN.HOSP_ITS ---
Reason for Visit Reason for Visit: Diagnoses Fracture of unspecified part of neck of right femur, initial encounter for clos ed fracture (02/06/23) Subjective Subjective Patient is an 82-year-old gentleman who presented to the emergency department with a fall after tripping over his dog. Imaging studies obtained on admission demonstrated right femoral neck fracture admitted to regular nursing floor with consultation placed orthopedic surgery Objective Data Objective Data Vital Signs: Vital Signs Temp Pulse Resp BP Pulse Ox O2 Del Method O2 Flow Rate 99.9 F H 82 16 129/69 H 94 Nasal Cannula 2 02/07/23 02:00 02/07/23 06:53 02/07/23 06:53 02/07/23 02:00 02/07/23 06:53 02/07/23 06:53 02/07/23 06:53 Oxygen Flow Rate (L/min) 2 Oxygen Delivery Method Nasal Cannula Weight: 83.8 kg Body Mass Index (BMI) 28.0 Intake & Output: Intake and Output for Last 24 Hours 02/05/23 02/06/23 02/07/23 23:59 23:59 23:59 Intake Total 1060 / 1060 Balance 1060 / 1060 Lab / Micro Data 02/06/23 21:55 02/07/23 05:45 Labs: Laboratory Results - last 24 hr 02/06/23 21:55: WBC 6.8, RBC 3.82 L, Hgb 11.0 L, Hct 35.3 L, MCV 92.4, MCH 28.8, MCHC 31.2 L, RDW Std Deviation 47.8 H, RDW Coeff of John 14.1, Plt Count 240, MPV 9.8, Immature Gran % (Auto) 2.200 H, Neut % (Auto) 78.8 H, Lymph % (Auto) 8.8 L, [place] % (Auto) 7.4, Eos % (Auto) 2.4, Baso % (Auto) 0.4, Absolute Neuts (auto) 5.4, Absolute Lymphs (auto) 0.60 L, Nucleated RBC % 0, Differential Comment SCANNED, Sodium 136, Potassium 4.1, Chloride 108 H, Carbon Dioxide 24.0, Anion Gap 4 L, BUN 35 H, Creatinine 1.59 H, Estim Creat Clear Calc 33.46, Est GFR (MDRD) Af Amer 54 L, Est GFR (MDRD) Non-Af 44 L, BUN/Creatinine Ratio 22.0 H, Glucose 112 H, Calcium 8.9 02/07/23 05:45: Sodium 140, Potassium 4.2, Chloride 111 H, Carbon Dioxide 22.0, Anion Gap 7, BUN 33 H, Creatinine 1.56 H, Estim Creat Clear Calc 34.10, Est GFR (MDRD) Af Amer 55 L, Est GFR (MDRD) Non-Af 45 L, BUN/Creatinine Ratio 21.2 H, Glucose 133 H, Calcium 8.3 L, Total Bilirubin 0.30, AST 24, ALT 25, Alkaline Phosphatase 76, Total Protein 6.9, Albumin 2.5 L, Globulin 4.4 H, [place] min/Globulin Ratio 0.6 L, Vitamin D 25-Hydroxy 33.9, TSH 7.81 H, Blood Type A POSITIVE, Antibody Screen NEGATIVE Radiography Diagnostic Testing: Radiology Impression Brain CT 02/06/23 21:03 IMPRESSION: Age-related changes as above, without evidence of acute intracranial hemorrhage in this noncontrast head CT. Scalp injury and sinus disease. Electronically Signed: Homero Shaffer MD at 21:52 EDT , Cervical Spine CT 02/06/23 21:03 IMPRESSION: Cervical spine without evidence of acute fracture. Neuroforaminal narrowing. Electronically Signed: Homero Shaffer MD at 21:59 EDT , Chest X-Ray 02/06/23 21:25 IMPRESSION: Stable with no acute disease. Electronically Signed: Homero Shaffer MD at 22:29 EDT , Elbow X-Ray 02/06/23 21:25 IMPRESSION: No acute osseous abnormality of the right elbow. Electronically Signed: Homero Shaffer MD at 22:32 EDT , Hip/Pelvis X-Ray 02/06/23 21:25 IMPRESSION: Right femoral neck fracture. Electronically Signed: Homero Shaffer MD at 22:42 EDT , Physical Exam Narrative GENERAL: cooperative HEENT: Atraumatic; normocephalic EYES; Anicteric, Normal Conjunctiva NECK; supple, normal thyroid, RESPIRATORY: Diminished to auscultation CARDIOVASCULAR: Regular S1 S2, systolic murmur GI: soft, normoactive bowel sounds, : No Renal angle tenderness; EXTREMITIES: Bipedal edema with scabies on lower extremities MUSCULOSKELETAL: no muscle wasting NEURO: Awake; no lateralizing signs. SKIN: Described above PSYCH; Flat affect Assessment & Plan Assessment/Plan (1) Closed right hip fracture: QUALIFIERS: Encounter type: initial encounter Qualified Code(s): S72.001A - Fracture of unspecified part of neck of right femur, initial encounter for closed fracture PLAN: Plan Patient is an 82-year-old gentleman who presented to the emergency department with a fall after tripping over his dog. Imaging studies obtained on admission demonstrated right femoral neck fracture admitted to regular nursing floor with consultation placed orthopedic surgery 1. Nonsyncopal mechanical fall with subsequent right femoral neck fracture ? Imaging studies demonstrated an impacted right femoral neck fracture. Patient admitted to regular nursing floor managed with immobilization pain management as well as consultation placed to orthopedic surgery Patient preoperative assessment as documented by admitting physician 2. Severe aortic stenosis ? Patient apparently been worried about for possible TAVR as outpatient 3. Hypothyroidism - Patient is on levothyroxine home dose continued 4. Hypertension - Blood pressure controlled, home medications continued with dose adjustment as needed 5. COPD ? Currently not in exacerbation aerosol treatment as needed 6. Depression ? Patient is on sertraline did continue 7. Physical deconditioning - Requested for PT OT eval and social security benefits interviewer to assist with discharge planning 8. DVT prophylaxis ? SCDs for now with plans to initiate chemoprophylaxis following patient surgery Time spent in the patient's overall evaluation,decision-making process, review of diagnostic data, adjustment of management, discussion with other providers, nursing nursing and ancillary staff involved in patient's care documentation, 50 Minutes Advance planning; did discuss with the patient and family regarding advanced directives as well as CODE STATUS. Did explain the various scenarios involved ( FULL CODE, DNR CCA, DNR CCA with no intubation, and DNR CC and what each meant) patient elected remain full code with CPR and intubation if needed. Order was placed. Time spent on discussion 18 minutes. Charges/Coding Visit Charges Inpatient E&M: 15998 Subs Hosp L3 Procedures Hospitalists Procedures: 01466 Advncd Care Plan 30 Min
--- NOTE | 2023-02-07 10:55 | CASEMGMT ---
ROS[facility] CM Readmission Note Previous Admission:? 01/30/23-02/01/23? Diagnosis:complete heart block DC Disposition: Home Current Admission? Current Diagnosis: right hip fracture Pt presented to ER with fall at home as he tripped over his dog. Pt reports he was doing well at home post hospitalization. He has followed up with his PCP and was taking medications as ordered. Pt is typically I in ADL's and lives with in a single story home. Pt to have OR today. DC Plan: TBD pending OR and therapy evals
[2023-02-07] MEDS: Cefazolin 2 GM in 0.9% Normal Saline (100mL Bag) 100 ML IV (12:20)
--- NOTE | 2023-02-07 12:30 | RAD_ITS ---
STUDY: X-RAY - PELVIS AND RIGHT HIP REASON FOR EXAM: Male, 82 years old. HIP PINNING -- -- 5 IMAGESM 40.3 SEC, 6.38 MGY TECHNIQUE: 5 C-arm views of the pelvis and hip. 40.3 seconds fluoroscopy time COMPARISON: None. FINDINGS: These images show grossly satisfactory appearance of 3 separate orthopedic pins passing through the neck of the femur fixating a femoral neck fracture. Correlate with procedure note. Electronically Signed: Juan Cottrell MD at 22:34 EDT , RAD/Hip 1 view with Pelvis IMPRESSION: undefined
[2023-02-07] MEDS: Ropivacaine 0.5% 30 ML Vial (12:57)
--- NOTE | 2023-02-07 13:22 | PCM.OPRPT ---
Report of Operation Date of Procedure: 02/07/23 Description of Surgical Findings:: Preoperative diagnosis: Right valgus impacted femoral neck fracture Postoperative diagnosis: Right valgus impacted femoral neck fracture Procedure: Percutaneous screw fixation of right femoral neck fracture Surgeon: Teofilo Andrews DO Anesthesia: General LMA Anesthesiologist: Dr. Mc Complications: None Drains: None Estimated blood loss: 50 cc Urinary output: None IV fluids: 500 cc crystalloid Specimens: None Surgical implants: Synthes 7.3 mm cannulated screws x3 with washers Surgical indications: This is a 82-year-old male seen in consultation at [facility] after mechanical fall from standing height yesterday 02/06/2023. X-rays in the emergency department revealed a valgus impacted right femoral neck fracture. I recommended surgical intervention in the form of right femoral neck percutaneous screw fixation. We discussed the risks, benefits, alternatives of procedure including but not limited to bleeding, infection, need for additional surgery, malunion or nonunion, persistent pain, persistent disability, loss of life or limb, risk of anesthesia, mechanical failure of orthopedic hardware. Patient acknowledged understanding of these risks and elected to proceed. Description of procedure: Prior to the procedure, patient was brought to the preoperative holding area where patient was identified by name, medical record number and date of . I confirmed the side, site, operation to be performed. Informed consent was confirmed. The operative extremity was marked. He was also seen by anesthesia staff and anesthesia consent obtained.At time of the operative procedure, pt was brought to the operative suite. General anesthesia was induced on the hospital bed and LMA placed. After adequate anesthesia and securing the tube, patient was then positioned supine on a fracture table. The operative foot was well-padded and placed in a ski boot attached to the traction unit on the fracture table. The nonoperative leg was extended and secured to the axial post of the fracture table. A well-padded perineal post was placed and the right upper extremity was brought across patient's torso and secured. We applied minimal traction through the operative extremity. We then prepped and draped the right lower extremity in normal sterile orthopedic fashion after maintained reduction was confirmed on fluoroscopy orthogonal views. We then performed a timeout with all parties in attendance in agreement with the side, site, operation be performed. 2 g Ancef was administered prior to incision by anesthesia staff. I first used fluoroscopy to cecilia out our planned incision with the planned trajectory of the screws. An approximately 4 cm incision was made along the lateral thigh. I then opened the IT band with a scalpel. A threaded K wire was then used to plan my screw trajectory. I placed an inverted triangle configuration just above the level of the lesser trochanter. Position was confirmed on fluoroscopy and appropriate and parallel position. Depth gauge was used to measure the length of screws. Near cortex was drilled with a cannulated drill. Screws were then placed on power and tightened on hand. I did utilize washers and all screws for increasing purchase. Final fluoroscopic images were obtained. Maintained reduction in placement and size of hardware appeared appropriate. Hemostasis was excellent. I then thoroughly irrigated the wound with normal saline solution. Deep tissues were closed with 0 Vicryl suture and subcutaneous tissue closed with 2-0 Vicryl suture. Skin was finally closed with tayla. Sterile compression dressings were applied to the wounds. Patient was then taken out of traction entirely and removed from both traction boot and well leg garrido. Patient was transferred back to his hospital bed in stable condition and extubated safely in the operative suite. Patient was then transferred to PACU in stable condition. Post Operative Plan: Weightbearing: Weightbearing as tolerated right lower extremity Antibiotics: Ancef 1 g x 3 doses postoperatively, 1 dose given preoperatively DVT Prophylaxis: Lovenox, SCDs [place]: None Dressing: Dry sterile dressing changes daily and as needed for saturation X-Rays: 2 weeks postop in the office Follow-up: 2 weeks in the office with myself
--- NOTE | 2023-02-07 14:27 | CHAPLAIN ---
Type of Pastoral Visit ___ Initial Visit ___ Follow-up Visit ___ On-call Visit ___ General Patient Visit ___ Spiritual Assessment ___ Family Conference ___ Bereavement ___ Rapid Response ___ Code Blue ___ Other (describe below) Pastoral Care Referral From ___ Patient ___ Family ___ Nurse ___ Physician ___ Digital Librarian ___ Compound Specialist ___ Other (describe below) Sacrament/Intervention ___ Active listening ___ Anointing ___ Confucianism ___ Bereavement ___ Communion ___ [place] exploration ___ ___ Life review ___ Prayer ___ Reconciliation ___ Sacrament of Sick ___ Supportive presence ___ Wedding ___ Other (describe below) Pastoral Comments patient and bed are out of the room; left a calling card with message
--- NOTE | 2023-02-07 17:00 | CASEMGMT ---
Social Work SW met with pt's to discuss advance directives.? Pt confirms pt has completed a living will and health care POA naming Jacey Yip.? Living Will not on file, partial HCPOA on file. SW requested they be brought in for scanning into the EMR.? [facility]
--- NOTE | 2023-02-07 17:01 | CASEMGMT ---
Social Work SW met with pt's and discussed discharge plans. Pt is unable to provide any assistance at home and feels pt will likely need rehab prior to return home. SW explained Inpatient Rehab, SNF, home with home health and outpt therapy. A list of SNF and Inpatient Rehab providers including quality and resource use data and consistent with the patient?s preferred geographic region, medical needs, and insurance network were provided from the [employer] Guide. SW will follow along for watch for discharge needs and follow up with pt and for preferences. Plan: home vs SNF vs [facility]
[2023-02-07] MEDS: Famotidine 20 MG Tablet 40 MG PO (17:41)
[2023-02-07] MEDS: Cefazolin 1 GM/50 ML BAG IV (20:31)
[2023-02-07] MEDS: Senna/Docusate Sodium 1 Tablet 2 TABLET PO (20:44)
[2023-02-07] MEDS: Montelukast 10 MG Tablet PO (20:44)
[2023-02-08] VITALS (9 sets, daily range): BP systolic 104–149; BP diastolic 57–83; PULSE 66–96; RESP 18–20; TEMP 36.7–37.1; O2SAT 93–96
[2023-02-08] MEDS: Acetaminophen 500 MG Tablet 1000 MG PO (02:00)
[2023-02-08] MEDS: Albuterol 2.5 MG/3 ML VIAL.NEB. INHALATION (02:57)
[2023-02-08] MEDS: HYDROmorphone 0.5 MG/0.5 ML SYRINGE IV ×2 (05:07→22:04)
[2023-02-08] MEDS: Cefazolin 1 GM/50 ML BAG IV ×2 (05:07→12:21)
[2023-02-08] MEDS: Levothyroxine 75 MCG Tablet PO (06:42)
[2023-02-08 07:09] LABS: Absolute Lymphocyte Count 0.49 X10^3/uL (0.83-4.51); Absolute Neutrophil Count 5.4 X10^3/uL (2.0-7.7); Basophil# 0.02 X10^3/uL; Basophil% 0.3 % (0-1); Eosinophil# 0.35 X10^3/uL; Eosinophils% 5.1 % (0-5); Hematocrit 29.8 % (40-54); Lymphocyte # 0.49 X10^3/ul (0.83-4.51); Lymphocyte % 7.1 % (19-41); Mean Corp Hgb Conc 30.2 g/dL (32-36); Mean Corpuscular Hgb 28.8 pg (27.0-32.0); Mean Corpuscular Volume 95.2 fL (80-94); Monocyte# 0.55 X10^3/uL; NRBC Flagged by Analyzer 0 % (0-5); Neutrophil # 5.37 X10^3/uL (2.7-7.7); Neutrophil % 77.8 % (47-70); POSITIVE DIFFERENTIAL YES; Platelet Count 208 K/mm3 (150-450); RBC Distribution Width CV 14.6 % (11.6-14.6); RBC Distribution Width SD 51.1 fl (35.1-43.9); Red Blood Count 3.13 M/mm3 (4.6-6.2); White Blood Count 6.9 K/mm3 (4.4-11.0)
[2023-02-08 07:14] LABS: Differential Indicated SCAN CRITERIA MET
--- NOTE | 2023-02-08 07:35 | PCM.PN.HOSP ---
Reason for Visit Reason for Visit: Diagnoses Fracture of unspecified part of neck of right femur, initial encounter for closed fracture (02/06/23) Subjective Subjective Patient underwent percutaneous screw fixation of right femoral neck fracture on 02/07/2023 by Teofilo Andrews DO Objective Data Objective Data Vital Signs: Vital Signs Temp Pulse Resp BP Pulse Ox O2 Del Method O2 Flow Rate 98.0 F 84 20 H 104/57 L 96 Nasal Cannula 2 02/08/23 01:58 02/08/23 02:58 02/08/23 02:58 02/08/23 01:58 02/08/23 01:58 02/08/23 02:00 02/08/23 02:00 Oxygen Flow Rate (L/min) 2 Oxygen Delivery Method Nasal Cannula Weight: 83.8 kg Body Mass Index (BMI) 28.0 Intake & Output: Intake and Output for Last 24 Hours 02/06/23 02/07/23 02/08/23 23:59 23:59 23:59 Intake Total 3635.0 / 4485.0 900 / 900 Balance 3635.0 / 4485.0 900 / 900 Lab / Micro Data 02/08/23 06:27 02/08/23 06:27 Labs: Laboratory Results - last 24 hr 02/07/23 05:45: Sodium 140, Potassium 4.2, Chloride 111 H, Carbon Dioxide 22.0, Anion Gap 7, BUN 33 H, Creatinine 1.56 H, Estim Creat Clear Calc 34.10, Est GFR (MDRD) Af Amer 55 L, Est GFR (MDRD) Non-Af 45 L, BUN/Creatinine Ratio 21.2 H, Glucose 133 H, Calcium 8.3 L, Total Bilirubin 0.30, AST 24, ALT 25, Alkaline Phosphatase 76, Total Protein 6.9, Albumin 2.5 L, Globulin 4.4 H, Albumin/Globulin Ratio 0.6 L, Vitamin D 25-Hydroxy 33.9 02/08/23 06:27: WBC 6.9, RBC 3.13 L, Hgb 9.0 L, Hct 29.8 L, MCV 95.2 H, MCH 28.8, MCHC 30.2 L, RDW Std Deviation 51.1 H, RDW Coeff of John 14.6, Plt Count 208, MPV 10.0, Immature Gran % (Auto) 1.700 H, Neut % (Auto) 77.8 H, Lymph % (Auto) 7.1 L, Jay % (Auto) 8.0, Eos % (Auto) 5.1 H, Baso % (Auto) 0.3, Absolute Neuts (auto) 5.4, Absolute Lymphs (auto) 0.49 L, Nucleated RBC % 0 Radiography Diagnostic Testing: Radiology Impression Hip/Pelvis X-Ray 02/07/23 12:30 IMPRESSION: undefined Physical Exam Narrative GENERAL: cooperative HEENT: Atraumatic; normocephalic EYES; Anicteric, Normal Conjunctiva NECK; supple, normal thyroid, RESPIRATORY: Diminished to auscultation CARDIOVASCULAR: Regular S1 S2, systolic murmur GI: soft, normoactive bowel sounds, : No Renal angle tenderness; EXTREMITIES: Bipedal edema with scabies on lower extremities MUSCULOSKELETAL: no muscle wasting NEURO: Awake; no lateralizing signs. SKIN: Described above PSYCH; Flat affect Assessment & Plan Assessment/Plan (1) Closed right hip fracture: QUALIFIERS: Encounter type: initial encounter Qualified Code(s): S72.001A - Fracture of unspecified part of neck of right femur, initial encounter for closed fracture PLAN: Plan Patient is an 82-year-old gentleman who presented to the emergency department with a fall after tripping over his dog. Imaging studies obtained on admission demonstrated right femoral neck fracture admitted to regular nursing floor with consultation placed orthopedic surgery 1. Nonsyncopal mechanical fall with subsequent right femoral neck fracture ? Imaging studies demonstrated an impacted right femoral neck fracture. Patient admitted to regular nursing floor managed with immobilization pain management as well as consultation placed to orthopedic surgery 02/08/2023. Patient underwent percutaneous screw fixation of right femoral neck fracture on 02/07/2023 by Teofilo Andrews DO 2. Severe aortic stenosis ? Patient apparently been worried about for possible TAVR as outpatient 3. Hypothyroidism - Patient is on levothyroxine home dose continued 4. Hypertension - Blood pressure controlled, home medications continued with dose adjustment as needed 5. COPD ? Currently not in exacerbation aerosol treatment as needed 6. Depression ? Patient is on sertraline did continue 7. Physical deconditioning - Requested for PT OT eval and social sciences instructor to assist with discharge planning 8. DVT prophylaxis ? Enoxaparin Time spent in the patient's overall evaluation,decision-making process, review of diagnostic data, adjustment of management, discussion with other providers, nursing nursing and ancillary staff involved in patient's care documentation, 35 minutes Charges/Coding Visit Charges Inpatient E&M: 52040 Subs Hosp L2
--- NOTE | 2023-02-08 07:43 | PN.ORTHO_ITS ---
Subjective Subjective Patient seen and examined. Up to chair with nursing this morning. Denies fevers, chills, nausea vomiting, chest pain or shortness of breath. Tolerating oral intake. Objective Data Objective Data Vital Signs: Vital Signs Temp Pulse Resp BP Pulse Ox O2 Del Method O2 Flow Rate 98.0 F 84 20 H 104/57 L 96 Nasal Cannula 2 02/08/23 01:58 02/08/23 02:58 02/08/23 02:58 02/08/23 01:58 02/08/23 01:58 02/08/23 02:00 02/08/23 02:00 Oxygen Flow Rate (L/min) 2 Oxygen Delivery Method Nasal Cannula Weight: 184 lb 11.958 oz Body Mass Index (BMI) 28.0 Intake & Output: Intake and Output for Last 24 Hours 02/06/23 02/07/23 02/08/23 23:59 23:59 23:59 Intake Total 3635.0 / 4485.0 900 / 900 Balance 3635.0 / 4485.0 900 / 900 Lab / Micro Data 02/08/23 06:27 02/07/23 05:45 Labs: Laboratory Results - last 24 hr 02/07/23 05:45: Sodium 140, Potassium 4.2, Chloride 111 H, Carbon Dioxide 22.0, Anion Gap 7, BUN 33 H, Creatinine 1.56 H, Estim Creat Clear Calc 34.10, Est GFR (MDRD) Af Amer 55 L, Est GFR (MDRD) Non-Af 45 L, BUN/Creatinine Ratio 21.2 H, Glucose 133 H, Calcium 8.3 L, Total Bilirubin 0.30, AST 24, ALT 25, Alkaline Phosphatase 76, Total Protein 6.9, Albumin 2.5 L, Globulin 4.4 H, Albumin/Globulin Ratio 0.6 L, Vitamin D 25-Hydroxy 33.9 02/08/23 06:27: WBC 6.9, RBC 3.13 L, Hgb 9.0 L, Hct 29.8 L, MCV 95.2 H, MCH 28.8, MCHC 30.2 L, RDW Std Deviation 51.1 H, RDW Coeff of John 14.6, Plt Count 208, MPV 10.0, Immature Gran % (Auto) 1.700 H, Neut % (Auto) 77.8 H, Lymph % (Auto) 7.1 L, [place] % (Auto) 8.0, Eos % (Auto) 5.1 H, Baso % (Auto) 0.3, Absolute Neuts (auto) 5.4, Absolute Lymphs (auto) 0.49 L, Nucleated RBC % 0 Radiography Diagnostic Testing: Radiology Impression Hip/Pelvis X-Ray 02/07/23 12:30 IMPRESSION: undefined Physical Exam Narrative General - A&Ox3, NAD. VSS/AF Right lower extremity -incisional dressing shows scant sanguinous drainage, otherwise clean dry and intact. SILT Sural, Saphenous, SPN, DPN, Tibial N. distributions. DP, PT 2+. BCR. DF, PF, EHL 5/5. No calf TTP. Assessment & Plan Assessment/Plan (1) Closed right hip fracture: QUALIFIERS: Encounter type: initial encounter Qualified Code(s): S72.001A - Fracture of unspecified part of neck of right femur, initial encounter for closed fracture PLAN: POD#1 s/p right femoral neck percutaneous screw fixation - Acute blood loss anemia in the setting of chronic anemia. Suspect somewhat dilutional component. - Pain control - Medicine following for medical management - PT/OT-weightbearing as tolerated right lower extremity with a walker - DVT PPX -Lovenox, SCDs, early mobilization - Case management - D/C planning
[2023-02-08 07:52] LABS: Anion Gap 5 (5-15); BUN 28 mg/dL (7-18); BUN/Creat Ratio 18.4 RATIO (10-20); Calcium,Total 8.1 mg/dL (8.5-10.1); Chloride 113 mmol/L (98-107); Creatinine, Serum 1.52 mg/dL (0.70-1.30); EST Glomerular Filtration Rate 47 mL/min (>60); Est Glom Filt Rate - Afr Amer 56 mL/min (>60); Glucose 129 mg/dL (74-106); Magnesium 1.6 mg/dL (1.6-2.6); Phosphorus 3.3 mg/dL (2.5-4.9); Potassium 4.1 mmol/L (3.5-5.1); Sodium Level 140 mmol/L (136-145)
[2023-02-08 08:18] LABS: Differential Comment SCANNED
[2023-02-08] MEDS: Budesonide Respules 0.5 MG/2 ML AMPUL.NEB. INHALATION ×2 (08:21→19:32)
[2023-02-08] MEDS: Ipratropium/Albuterol Sulfate 3 ML AMPUL.NEB INHALATION ×2 (08:21→19:31)
--- NOTE | 2023-02-08 08:57 | NURSING ---
currently on emergency charting
[2023-02-08] MEDS: Enoxaparin 40 MG/0.4 ML Syringe SC (10:03)
[2023-02-08] MEDS: Famotidine 20 MG Tablet 40 MG PO (10:04)
[2023-02-08] MEDS: Senna/Docusate Sodium 1 Tablet 2 TABLET PO ×2 (10:04→22:04)
[2023-02-08] MEDS: Sertraline 100 MG Tablet PO (10:04)
[2023-02-08] MEDS: Ferrous Sulfate 325 MG Tablet PO (10:05)
[2023-02-08] MEDS: HYDROcodone Bitartrate/Apap 5/325 Tablet PO ×2 (10:15→17:57)
--- NOTE | 2023-02-08 14:05 | CASEMGMT ---
Social Work SW met w/pt in room in regard to discharge plan. Pt would like a referral sent to TCU. SW asked if he has any additional choices, in the event TCU does not have a bed. He states he does not. SW asked him to review the list w/his this weekend and come up with a back up choice in the event TCU cannot take him. Pt states understanding. SW sent an email to Penelope in TCU w/the referral. ERIC Ruiz
[2023-02-08] MEDS: 0.9% Saline Lock 10 ML Syringe IV (22:04)
[2023-02-08] MEDS: Montelukast 10 MG Tablet PO (22:04)
[2023-02-09] VITALS (9 sets, daily range): BP systolic 120–159; BP diastolic 67–94; PULSE 93–140; RESP 18–23; TEMP 36.6–37.3; O2SAT 94–100
[2023-02-09] MEDS: Levothyroxine 75 MCG Tablet PO (04:20)
[2023-02-09] MEDS: HYDROcodone Bitartrate/Apap 5/325 Tablet PO ×3 (04:20→18:49)
[2023-02-09 06:09] LABS: Absolute Lymphocyte Count 0.34 X10^3/uL (0.83-4.51); Absolute Neutrophil Count 8.6 X10^3/uL (2.0-7.7); Basophil# 0.02 X10^3/uL; Basophil% 0.2 % (0-1); Eosinophil# 0.28 X10^3/uL; Eosinophils% 2.8 % (0-5); Hematocrit 31.2 % (40-54); Hemoglobin 9.7 g/dL (13.0-16.5); Lymphocyte # 0.34 X10^3/ul (0.83-4.51); Lymphocyte % 3.4 % (19-41); Mean Corp Hgb Conc 31.1 g/dL (32-36); Mean Corpuscular Hgb 28.8 pg (27.0-32.0); Mean Corpuscular Volume 92.6 fL (80-94); Mean Platelet Vol. 9.8 fl (6.2-12.0); Monocyte# 0.56 X10^3/uL; Monocyte% 5.7 % (0-10); NRBC Flagged by Analyzer 0 % (0-5); Neutrophil # 8.55 X10^3/uL (2.7-7.7); Neutrophil % 86.8 % (47-70); POSITIVE DIFFERENTIAL YES; Platelet Count 253 K/mm3 (150-450); RBC Distribution Width CV 14.2 % (11.6-14.6); RBC Distribution Width SD 48.4 fl (35.1-43.9); Red Blood Count 3.37 M/mm3 (4.6-6.2); White Blood Count 9.9 K/mm3 (4.4-11.0)
[2023-02-09 06:30] LABS: Anion Gap 6 (5-15); BUN 24 mg/dL (7-18); BUN/Creat Ratio 17.8 RATIO (10-20); Calcium,Total 8.8 mg/dL (8.5-10.1); Chloride 108 mmol/L (98-107); Creatinine, Serum 1.35 mg/dL (0.70-1.30); EST Glomerular Filtration Rate 54 mL/min (>60); Est Glom Filt Rate - Afr Amer 65 mL/min (>60); Estimated Creatinine Clearance 39.41 ml/min; Glucose 144 mg/dL (74-106); Sodium Level 136 mmol/L (136-145)
[2023-02-09 06:48] LABS: Differential Indicated SCAN CRITERIA MET
[2023-02-09] MEDS: Ipratropium/Albuterol Sulfate 3 ML AMPUL.NEB INHALATION ×3 (06:59→19:38)
[2023-02-09] MEDS: Budesonide Respules 0.5 MG/2 ML AMPUL.NEB. INHALATION ×2 (06:59→19:38)
[2023-02-09 07:14] LABS: Differential Comment SCANNED
--- NOTE | 2023-02-09 08:04 | PCM.PN.HOSP ---
Reason for Visit Reason for Visit: Diagnoses Fracture of unspecified part of neck of right femur, initial encounter for closed fracture (02/06/23) Subjective Subjective Complaining of low back pain. Hemoglobin remains low at 9.7. Plan is for patient to be transferred to retirement facility pending insurance precertification/authorization Objective Data Objective Data Vital Signs: Vital Signs Temp Pulse Resp BP Pulse Ox O2 Del Method O2 Flow Rate 99.2 F H 125 H 22 H 159/88 H 94 Nasal Cannula 2 02/09/23 04:17 02/09/23 06:59 02/09/23 06:59 02/09/23 04:17 02/09/23 06:59 02/09/23 06:59 02/09/23 06:59 Oxygen Flow Rate (L/min) 2 Oxygen Delivery Method Nasal Cannula Weight: 83.8 kg Body Mass Index (BMI) 28.0 Intake & Output: Intake and Output for Last 24 Hours 02/07/23 02/08/23 02/09/23 23:59 23:59 23:59 Intake Total 3635.0 / 4485.0 1350 / 1350 Output Total 500 / 500 Balance 3635.0 / 4485.0 850 / 850 Lab / Micro Data 02/09/23 05:27 02/09/23 05:27 Labs: Laboratory Results - last 24 hr 02/08/23 06:27: Differential Comment SCANNED 02/09/23 05:27: WBC 9.9, RBC 3.37 L, Hgb 9.7 L, Hct 31.2 L, MCV 92.6, MCH 28.8, MCHC 31.1 L, RDW Std Deviation 48.4 H, RDW Coeff of John 14.2, Plt Count 253, MPV 9.8, Immature Gran % (Auto) 1.100 H, Neut % (Auto) 86.8 H, Lymph % (Auto) 3.4 L, [place] % (Auto) 5.7, Eos % (Auto) 2.8, Baso % (Auto) 0.2, Absolute Neuts (auto) 8.6 H, Absolute Lymphs (auto) 0.34 L, Nucleated RBC % 0, Differential Comment SCANNED, Sodium 136, Potassium 4.0, Chloride 108 H, Carbon Dioxide 22.0, Anion Gap 6, BUN 24 H, Creatinine 1.35 H, Estim Creat Clear Calc 39.41, Est GFR (MDRD) Af Amer 65, Est GFR (MDRD) Non-Af 54 L, BUN/Creatinine Ratio 17.8, Glucose 144 H, Calcium 8.8 Physical Exam Narrative GENERAL: cooperative HEENT: Atraumatic; normocephalic EYES; Anicteric, Normal Conjunctiva NECK; supple, normal thyroid, RESPIRATORY: Diminished to auscultation CARDIOVASCULAR: Regular S1 S2, systolic murmur GI: soft, normoactive bowel sounds, : No Renal angle tenderness; EXTREMITIES: Bipedal edema with scabies on lower extremities MUSCULOSKELETAL: no muscle wasting NEURO: Awake; no lateralizing signs. SKIN: Described above PSYCH; Flat affect Assessment & Plan Assessment/Plan (1) Closed right hip fracture: QUALIFIERS: Encounter type: initial encounter Qualified Code(s): S72.001A - Fracture of unspecified part of neck of right femur, initial encounter for closed fracture PLAN: Plan Patient is an 82-year-old gentleman who presented to the emergency department with a fall after tripping over his dog. Imaging studies obtained on admission demonstrated right femoral neck fracture admitted to regular nursing floor with consultation placed orthopedic surgery 1. Right femoral neck fracture ? Imaging studies demonstrated an impacted right femoral neck fracture. Patient admitted to regular nursing floor managed with immobilization pain management as well as consultation placed to orthopedic surgery 02/08/2023. Patient underwent percutaneous screw fixation of right femoral neck fracture on 02/07/2023 by Teofilo Andrews DO -02/09/2023 complaining of low back pain. Hemoglobin remains low at 9.7. Plan is for patient to be transferred to retirement facility pending insurance precertification/authorization 2. Severe aortic stenosis ? Patient apparently been worried about for possible TAVR as outpatient 3. Hypothyroidism - Patient is on levothyroxine home dose continued 4. Hypertension - Blood pressure controlled, home medications continued with dose adjustment as needed 5. COPD ? Currently not in exacerbation aerosol treatment as needed 6. Depression ? Patient is on sertraline did continue 7. Physical deconditioning - Requested for PT OT eval and web content & social media manager to assist with discharge planning 8. DVT prophylaxis ? Enoxaparin Time spent in the patient's overall evaluation,decision-making process, review of diagnostic data, adjustment of management, discussion with other providers, nursing nursing and ancillary staff involved in patient's care documentation, 35 minutes Charges/Coding Visit Charges Inpatient E&M: 01765 Subs Hosp L2
[2023-02-09] MEDS: Famotidine 20 MG Tablet 40 MG PO (10:20)
[2023-02-09] MEDS: Ferrous Sulfate 325 MG Tablet PO (10:20)
[2023-02-09] MEDS: Enoxaparin 40 MG/0.4 ML Syringe SC (10:20)
[2023-02-09] MEDS: Senna/Docusate Sodium 1 Tablet 2 TABLET PO ×2 (10:21→21:20)
[2023-02-09] MEDS: Sertraline 100 MG Tablet PO (10:21)
[2023-02-09] MEDS: dilTIAZem 60 MG Tablet PO (13:08)
[2023-02-09] MEDS: Montelukast 10 MG Tablet PO (21:20)
[2023-02-10] VITALS (9 sets, daily range): BP systolic 124–151; BP diastolic 84–89; PULSE 78–87; RESP 16–18; TEMP 36.7–36.8; O2SAT 90–97
[2023-02-10] MEDS: HYDROcodone Bitartrate/Apap 5/325 Tablet PO ×3 (05:22→20:50)
[2023-02-10] MEDS: Levothyroxine 75 MCG Tablet PO (05:22)
[2023-02-10 06:30] LABS: Absolute Lymphocyte Count 0.47 X10^3/uL (0.83-4.51); Absolute Neutrophil Count 6.8 X10^3/uL (2.0-7.7); Basophil# 0.02 X10^3/uL; Basophil% 0.2 % (0-1); Eosinophil# 0.28 X10^3/uL; Eosinophils% 3.4 % (0-5); Hematocrit 31.8 % (40-54); Hemoglobin 9.7 g/dL (13.0-16.5); Lymphocyte # 0.47 X10^3/ul (0.83-4.51); Lymphocyte % 5.7 % (19-41); Mean Corp Hgb Conc 30.5 g/dL (32-36); Mean Corpuscular Hgb 28.5 pg (27.0-32.0); Mean Corpuscular Volume 93.5 fL (80-94); Monocyte# 0.53 X10^3/uL; Monocyte% 6.4 % (0-10); NRBC Flagged by Analyzer 0 % (0-5); Neutrophil # 6.78 X10^3/uL (2.7-7.7); Neutrophil % 82.5 % (47-70); POSITIVE DIFFERENTIAL YES; Platelet Count 273 K/mm3 (150-450); RBC Distribution Width CV 14.1 % (11.6-14.6); RBC Distribution Width SD 47.9 fl (35.1-43.9); White Blood Count 8.2 K/mm3 (4.4-11.0)
[2023-02-10 06:53] LABS: Anion Gap 5 (5-15); BUN 33 mg/dL (7-18); BUN/Creat Ratio 22.1 RATIO (10-20); Calcium,Total 8.9 mg/dL (8.5-10.1); Chloride 107 mmol/L (98-107); Creatinine, Serum 1.49 mg/dL (0.70-1.30); EST Glomerular Filtration Rate 48 mL/min (>60); Est Glom Filt Rate - Afr Amer 58 mL/min (>60); Glucose 151 mg/dL (74-106); Potassium 4.2 mmol/L (3.5-5.1); Sodium Level 137 mmol/L (136-145)
[2023-02-10 06:57] LABS: Differential Indicated SCAN CRITERIA MET
[2023-02-10 07:07] LABS: Differential Comment SCANNED
[2023-02-10] MEDS: Budesonide Respules 0.5 MG/2 ML AMPUL.NEB. INHALATION (07:14)
[2023-02-10] MEDS: Ipratropium/Albuterol Sulfate 3 ML AMPUL.NEB INHALATION ×2 (07:14→12:29)
[2023-02-10] MEDS: Sertraline 100 MG Tablet PO (07:59)
[2023-02-10] MEDS: Ferrous Sulfate 325 MG Tablet PO (07:59)
[2023-02-10] MEDS: Enoxaparin 40 MG/0.4 ML Syringe SC (08:00)
[2023-02-10] MEDS: Senna/Docusate Sodium 1 Tablet 2 TABLET PO ×2 (08:00→20:51)
[2023-02-10] MEDS: Famotidine 20 MG Tablet 40 MG PO (08:00)
--- NOTE | 2023-02-10 11:20 | CASEMGMT ---
Addendum entered by Lucinda Roberts 02/10/23 13:33: SW met with patient's and introduced self and role as [facility] SW. SW provided patient's with an update regarding patient being accepted to TCU pending precert. SW reviewed precert process. Patient's voiced understanding and reports no other questions. ZENAIDA Child Original Note: Social Work Patient accepted to TCU, SW updated MD Gandhi via Backline as well as patient's RN. SW met with patient and introduced self and role as [facility] SW. Patient seated in hospital chair and agreeable to speak with SW. SW informed patient he was accepted to TCU pending precert. Patient voiced understanding and requested SW update his . SW left VM on patient's 's phone explaining patient was accepted pending precert. Plan: TCU pending precert ZENAIDA Child
--- NOTE | 2023-02-10 14:22 | CHAPLAIN ---
Type of Pastoral Visit _x__ Initial Visit ___ Follow-up Visit ___ On-call Visit ___ General Patient Visit ___ Spiritual Assessment ___ Family Conference ___ Bereavement ___ Rapid Response ___ Code Blue ___ Other (describe below) Pastoral Care Referral From _x__ Patient ___ Family ___ Nurse ___ Physician ___ Convertible Power Shovel Operator ___ Hospital Chaplain ___ Other (describe below) Sacrament/Intervention ___ Active listening ___ Anointing ___ Pentecostalism ___ Bereavement ___ Communion _x__ Galina exploration ___ ___ Life review _x__ Prayer ___ Reconciliation ___ Sacrament of Sick _x__ Supportive presence ___ Wedding ___ Other (describe below) Pastoral Comments patient was recently seen by this tetryl boiling tub operator in another admission; this is new issue for pt; pt has family members in the room and staff have been in and out of room today as well; pt is welcoming of support and prayer; otherwise pt states that he has no new issues or needs
--- NOTE | 2023-02-10 16:23 | PN.HOSP_ITS ---
Reason for Visit Reason for Visit: Diagnoses Fracture of unspecified part of neck of right femur, initial encounter for clos ed fracture (02/06/23) Subjective Subjective Ports still having a lot of pain but overall doing better, has not had a bowel movement and has had somewhat poor appetite, no other acute complaints Objective Data Objective Data Vital Signs: Vital Signs Temp Pulse Resp BP Pulse Ox O2 Del Method O2 Flow Rate 98.2 F 80 16 124/87 H 93 Nasal Cannula 2 02/10/23 08:08 02/10/23 12:29 02/10/23 12:29 02/10/23 08:08 02/10/23 08:53 02/10/23 08:12 02/10/23 10:03 Oxygen Flow Rate (L/min) 2 Oxygen Delivery Method Nasal Cannula Weight: 83.8 kg Body Mass Index (BMI) 28.0 Intake & Output: Intake and Output for Last 24 Hours 02/08/23 02/09/23 02/10/23 23:59 23:59 23:59 Intake Total 1350 / 1350 250 / 650 760 / 760 Output Total 500 / 500 350 / 575 525 / 525 Balance 850 / 850 -100 / 75 235 / 235 Lab / Micro Data 02/10/23 06:10 02/10/23 06:10 Labs: Laboratory Results - last 24 hr 02/10/23 06:10: WBC 8.2, RBC 3.40 L, Hgb 9.7 L, Hct 31.8 L, MCV 93.5, MCH 28.5, MCHC 30.5 L, RDW Std Deviation 47.9 H, RDW Coeff of John 14.1, Plt Count 273, MPV 10.0, Immature Gran % (Auto) 1.800 H, Neut % (Auto) 82.5 H, Lymph % (Auto) 5.7 L , [place] % (Auto) 6.4, Eos % (Auto) 3.4, Baso % (Auto) 0.2, Absolute Neuts (auto) 6.8, Absolute Lymphs (auto) 0.47 L, Nucleated RBC % 0, Differential Comment SCANNED, Sodium 137, Potassium 4.2, Chloride 107, Carbon Dioxide 25.0, Anion Gap 5, BUN 33 H, Creatinine 1.49 H, Estim Creat Clear Calc 35.70, Est GFR (MDRD) Af Amer 58 L, Est GFR (MDRD) Non-Af 48 L, BUN/Creatinine Ratio 22.1 H, Glucose 151 H, Calcium 8.9 Physical Exam Narrative General: Alert, oriented, no apparent distress HEENT: Atraumatic, normocephalic Eyes: Anicteric, normal conjunctiva, extraocular movements grossly intact Neck: Supple Respiratory: Clear to auscultation bilaterally, normal respiratory effort Cardiovascular: Systolic ejection murmur in left precordium, regular rate GI: Slightly firm but nontender and no rebound, guarding, rigidity Extremities: No significant edema Musculoskeletal: Moving all extremities Neuro: No overt focal neurological deficits Skin: No rashes appreciated Psych: Cooperative Assessment & Plan Assessment/Plan (1) Closed right hip fracture: QUALIFIERS: Encounter type: initial encounter Qualified Code(s): S72.001A - Fracture of unspecified part of neck of right femur, initial encounter for closed fracture PLAN: Plan Patient is an 82-year-old gentleman who presented to the emergency department with a fall after tripping over his dog. Imaging studies obtained on admission demonstrated right femoral neck fracture admitted to regular nursing floor with consultation placed orthopedic surgery 1. Right femoral neck fracture ? Imaging studies demonstrated an impacted right femoral neck fracture. Patient admitted to regular nursing floor managed with immobilization pain management as well as consultation placed to orthopedic surgery 02/08/2023. Patient underwent percutaneous screw fixation of right femoral neck fracture on 02/07/2023 by Teofilo Andrews DO -02/09/2023 complaining of low back pain. Hemoglobin remains low at 9.7. Plan is for patient to be [facility] pending insurance precertification/authorization -02/10: Accepted to TCU, pending pre-CERT. Continue pain control, will add bowel regimen 2. Severe aortic stenosis ? Patient apparently been worried about for possible TAVR as outpatient -02/10: No acute changes, continue to monitor BP 3. Hypothyroidism - Patient is on levothyroxine home dose continued 4. Hypertension - Blood pressure controlled 5. COPD ? Currently not in exacerbation aerosol treatment as needed -02/10: Patient on scheduled nebs and budesonide and doing well with this 6. Depression ? Patient is on sertraline did continue 7. Physical deconditioning - Requested for PT OT eval and social psychologist to assist with discharge planning 8. DVT prophylaxis ? Enoxaparin Time spent in the patient's overall evaluation,decision-making process, review of diagnostic data, adjustment of management, discussion with other providers, nursing nursing and ancillary staff involved in patient's care documentation, 36 minutes Charges/Coding Visit Charges Inpatient E&M: 85666 Subs Hosp L2
[2023-02-10] MEDS: Polyethylene Glycol 3350 17 GM PACKET PO (17:10)
[2023-02-10] MEDS: Ensure Plus High Protein 120 ML LIQUID PO (20:50)
[2023-02-10] MEDS: Montelukast 10 MG Tablet PO (20:51)
[2023-02-11 03:46] VITALS: BP 117/65; PULSE 91; RESP 18; TEMP 36.6; O2SAT 95
[2023-02-11] MEDS: Levothyroxine 75 MCG Tablet PO (04:56)
[2023-02-11] MEDS: HYDROcodone Bitartrate/Apap 5/325 Tablet PO ×2 (06:21→15:15)
[2023-02-11] MEDS: Ipratropium/Albuterol Sulfate 3 ML AMPUL.NEB INHALATION ×2 (07:48→13:35)
[2023-02-11] MEDS: Budesonide Respules 0.5 MG/2 ML AMPUL.NEB. INHALATION (07:48)
[2023-02-11 07:49] VITALS: PULSE 89; RESP 18; O2SAT 94
[2023-02-11 07:57] LABS: Anion Gap 6 (5-15); BUN 35 mg/dL (7-18); BUN/Creat Ratio 24.8 RATIO (10-20); Calcium,Total 8.6 mg/dL (8.5-10.1); Chloride 108 mmol/L (98-107); Creatinine, Serum 1.41 mg/dL (0.70-1.30); EST Glomerular Filtration Rate 51 mL/min (>60); Est Glom Filt Rate - Afr Amer 62 mL/min (>60); Estimated Creatinine Clearance 37.73 ml/min; Glucose 160 mg/dL (74-106); Potassium 4.2 mmol/L (3.5-5.1); Sodium Level 137 mmol/L (136-145); T4 Free Direct 1.33 ng/dL (0.76-1.46)
[2023-02-11] MEDS: Ferrous Sulfate 325 MG Tablet PO (08:54)
[2023-02-11] MEDS: Sertraline 100 MG Tablet PO (08:54)
[2023-02-11] MEDS: Ensure Plus High Protein 120 ML LIQUID PO ×2 (08:54→14:21)
[2023-02-11] MEDS: Famotidine 20 MG Tablet 40 MG PO (08:55)
[2023-02-11] MEDS: Senna/Docusate Sodium 1 Tablet 2 TABLET PO (08:55)
[2023-02-11] MEDS: Polyethylene Glycol 3350 17 GM PACKET PO (08:55)
[2023-02-11 09:04] VITALS: BP 141/72; PULSE 98; RESP 16; TEMP 36.4; O2SAT 96; O2SAT 98
--- NOTE | 2023-02-11 09:11 | NURSING ---
This RN is aware of Vital Signs taken by Lucien [facility] Military Professional.
--- NOTE | 2023-02-11 10:15 | RAD_ITS ---
STUDY: X-RAY CHEST REASON FOR EXAM: Male, 82 years old. Sob TECHNIQUE: Single AP portable view of the chest. COMPARISON: Comparison is made with prior study dated February 06, 2023. FINDINGS: Increased markings at the right lung base suggests minimal right basilar atelectasis and/or early infiltrates as compared to prior study. The remainder of the examination is unchanged with focal calcific densities in the left midlung as well as in the right perihilar region. There is no demonstrated pleural abnormality. Normal size heart. Normal mediastinum and mamadou. Normal visualized pulmonary arteries. There is atherosclerotic calcification of the aortic arch with tortuosity. There are degenerative changes of the visualized thoracic spine. There is degenerative osteoarthritis of the bilateral shoulders. There is no demonstrated abnormality of the visualized soft tissue structures of the upper abdomen. RAD/Chest 1 View (Portable) IMPRESSION: New right basilar atelectasis and/or infiltrate. The remainder of the examination is unchanged. Electronically Signed: Antonio Kahn MD at 12:24 EDT ,
[2023-02-11 10:22] LABS: Absolute Lymphocyte Count 0.52 X10^3/uL (0.83-4.51); Absolute Neutrophil Count 5.5 X10^3/uL (2.0-7.7); Basophil# 0.03 X10^3/uL; Basophil% 0.4 % (0-1); Eosinophil# 0.23 X10^3/uL; Eosinophils% 3.4 % (0-5); Hematocrit 31.4 % (40-54); Hemoglobin 9.7 g/dL (13.0-16.5); Lymphocyte # 0.52 X10^3/ul (0.83-4.51); Lymphocyte % 7.7 % (19-41); Mean Corp Hgb Conc 30.9 g/dL (32-36); Mean Corpuscular Hgb 28.5 pg (27.0-32.0); Mean Corpuscular Volume 92.4 fL (80-94); Mean Platelet Vol. 10.3 fl (6.2-12.0); Monocyte# 0.43 X10^3/uL; Monocyte% 6.3 % (0-10); NRBC Flagged by Analyzer 0 % (0-5); Neutrophil # 5.45 X10^3/uL (2.7-7.7); Neutrophil % 80.3 % (47-70); POSITIVE DIFFERENTIAL YES; Platelet Count 264 K/mm3 (150-450); RBC Distribution Width SD 47.3 fl (35.1-43.9); White Blood Count 6.8 K/mm3 (4.4-11.0)
[2023-02-11 10:24] LABS: Differential Indicated SCAN CRITERIA MET
--- NOTE | 2023-02-11 12:22 | CASEMGMT ---
Social Work Patient accepted to TCU, precert has been obtained. SW informed MD via backline. SW met with patient and patient's and explained patient was accepted to TCU and precert was obtained. SW explained once patient is medically ready he will be able to transfer to TCU. Patient's voiced understanding. Plan: TCU when medically ready Lucinda FIGUEREDO, ZENAIDA
--- NOTE | 2023-02-11 12:55 | TREXTCAR_ITS ---
Diet Diet Order/Speech Therapy: 02/10/23 17:16 Diet: Regular - General Is pt able to select menu?: No Diet Comments: softer foods please - dentures at home Routine Orders/Code Status Suppository Type: Dulcolax 10mg Suppository Frequency: Daily PRN Code Status: Full Code Wound(s) rt side head: Wound Type: Abrasion rt leg: Wound Type: Abrasion left leg: Wound Type: Stasis Ulcer left lateral leg: Wound Type: Stasis Ulcer rt elbow: Wound Type: Skin Tear RT HIP: Wound Type: Surgical Incision Therapies Physical Therapy: Eval and Treat Occupational Therapy: Eval and Treat Problem/Diagnosis (1) Closed right hip fracture: Status: Acute Code(s): S72.001A - Fracture of unspecified part of neck of right femur, initial encounter for closed fracture Plan 1. Right femoral neck fracture- Patient underwent percutaneous screw fixation of right femoral neck fracture on 02/07/2023 by Teofilo Andrews DO #Severe aortic stenosis #Hypothyroidism #Hypertension #COPD #Depression #Physical deconditioning Patient is an 82-year-old gentleman who presented to the emergency department with a fall after tripping over his dog. Imaging studies obtained on admission demonstrated right femoral neck fracture admitted to regular nursing floor with consultation placed orthopedic surgery. Patient underwent percutaneous screw fixation of right femoral neck fracture on 02/07/2023 by Teofilo Andrews DO. Patient worked with physical therapy and placement was recommended, accepted to TCU and pre-CERT obtained. On day of discharge patient was complaining of slightly productive cough and did have coarse breath sounds right greater than left, chest x-ray obtained showed infiltrate and given patient has been in the hospital feel it is reasonable to treat him with Levaquin, MRSA swab obtained to assess if he needed MRSA coverage and was negative. Given patient clinically stable and vitally stable do not think he continues to require acute hospitalization and it is still reasonable to send to TCU for rehab on antibiotics. Discharge instructions as follows: -It is recommended that your primary care physician recheck your thyroid function on an outpatient basis -Weightbearing as tolerated for your right lower extremity -You will be discharged on subcutaneous Lovenox for DVT prophylaxis -You had a cough and new infiltrate on x-ray and will be discharged on an additional 6 days of Levaquin -Please follow-up with Dr. Andrews with orthopedic upon discharge for follow-up and 2-week postop x-rays. Please call their office to schedule hospital follow- up appointment upon discharge. -Please call your primary care provider's office upon discharge to schedule a hospital follow up within 1 week. -For any concerning signs or symptoms please call 911 or proceed to the nearest emergency department Allergies/Procedures Done in Hospital Allergies indomethacin [From Indocin] Adverse Reaction (Intermediate, Verified 02/06/23 20:42) Itching indomethacin sodium [From Indocin] Adverse Reaction (Intermediate, Verified 02/06/23 20:42) Itching oxycodone HCl [From Percocet] Adverse Reaction (Intermediate, Verified 02/06/23 20:42) Itching Procedures: - (Patient underwent percutaneous screw fixation of right femoral neck fracture on 02/07/2023 by Teofilo Andrews DO) Type of Care/Length of Stay Estimated LOS: Convalescent Care Less Than 30 days Type of Care Needed: Skilled Rehab Potential: Fair Prognosis: Fair Additional Orders/Day of Discharge Day of Discharge: 02/11/23 Dietary and Speech Recommendations Dietitian Recommendations/Changes: Will continue liberal regular diet - nonselect - with softer foods d/t no dentures here. Will order ensure plus high protein 4x/day w/ medpass for increased nutrition if consumed Rec consider appetite stimulant if po intake fails to improves. Discharge Plan Admission Admit Date/Time: 02/06/23 23:04 Primary Reason for Your Visit: Hip fracture Attending Provider: Jaleesa Cali Primary Care Provider: Angelique Grossman Consulting Providers: Carlo Edwards; Teofilo Andrews; Shane Gandhi Instructions Patient Instructions: ED Fall Prevention Additional Instructions / Restrictions: DISCHARGE INSTRUCTIONS PLEASE READ *Please take this with you to your next doctors appointment* -It is recommended that your primary care physician recheck your thyroid function on an outpatient basis -Weightbearing as tolerated for your right lower extremity -You will be discharged on subcutaneous Lovenox for DVT prophylaxis -You had a cough and new infiltrate on x-ray and will be discharged on an additional 6 days of Levaquin -Please follow-up with Dr. Andrews with orthopedic upon discharge for follow-up and 2-week postop x-rays. Please call their office to schedule hospital follow- up appointment upon discharge. -Please call your primary care provider's office upon discharge to schedule a hospital follow up within 1 week. -For any concerning signs or symptoms please call 911 or proceed to the nearest emergency department Discharge Orders/Prescriptions Prescriptions: New enoxaparin 40 mg/0.4 mL Syringe 40 mg subcut DAILY 30 Days Qty: 12 0RF polyethylene glycol 3350 17 gram Powder In Packet 17 g PO BID 7 Days Qty: 30 0RF levofloxacin 750 mg Tablet 750 mg PO DAILY 6 Days Qty: 6 0RF hydrocodone-acetaminophen 5-325 mg Tablet 1 tab PO Q6H PRN PRN (Reason: Pain Score 6-10) 3 Days Qty: 15 0RF Continued multivitamin Tablet 1 tab PO QAM montelukast 10 mg tablet 10 mg PO QPM Qty: 30 3RF ferrous sulfate [FeroSul] 325 mg (65 mg iron) tablet 325 mg PO DAILY epinephrine 0.3 MG/0.3 ML auto-injector 0.3 mg IJ PRN PRN (Reason: Anaphylaxis) acetaminophen 500 MG tablet 1,000 mg PO BID PRN PRN (Reason: Pain) albuterol sulfate 2.5 mg /3 mL (0.083 %) solution for nebulization 2.5 mg INHALATION Q6H PRN (Reason: shortness of breath or wheezing) sertraline 100 mg tablet 100 mg PO DAILY Qty: 90 1RF fluticasone propionate 50 mcg/actuation spray,suspension 2 spray intranasal DAILY Qty: 16 3RF chlorthalidone 25 mg tablet 25 mg PO DAILY Qty: 90 3RF nystatin-triamcinolone 100,000-0.1 unit/g-% cream 1 applic topical BID PRN (Reason: rash) Qty: 30 1RF levothyroxine 75 mcg tablet 75 mcg PO DAILY Qty: 90 3RF fluticasone propion-salmeterol 230-21 mcg/actuation HFA aerosol inhaler 2 puff INHALATION BID Qty: 1 11RF Spiriva Respimat 2.5 mcg/actuation mist 2 puff INHALATION QDAY Qty: 1 11RF albuterol sulfate 90 mcg/actuation HFA aerosol inhaler 2 puff INHALATION Q4H PRN PRN (Reason: Sob &/Or Wheezing) Qty: 1 6RF nitroglycerin 0.4 mg tablet, sublingual 0.4 mg sublingual Q5-15M PRN (Reason: CHEST PAIN) Qty: 25 3RF famotidine 40 mg tablet 40 mg PO DAILY Qty: 90 3RF Discontinued cephalexin 500 mg capsule 500 mg PO Q6H 10 Days Qty: 40 0RF Referrals / Follow Up: Angelique Grossman MD [Primary Care Provider] - Within 1 Week Teofilo Andrews DO [Med Staff - Active Staff] - Within 2 Weeks Disposition Disposition (needs filled in before D/C Order can be placed): Custodial Facility (1) Closed right hip fracture Qualifiers: Encounter type: initial encounter Qualified Code(s): S72.001A - Fracture of unspecified part of neck of right femur, initial encounter for closed fracture
[2023-02-11 13:35] VITALS: PULSE 84; RESP 18; O2SAT 91
[2023-02-11] MEDS: levoFLOXacin 750 MG Tablet PO (14:18)
[2023-02-11] MEDS: Psyllium 1 PACKET PO (14:18)
[2023-02-11] MEDS: Enoxaparin 40 MG/0.4 ML Syringe SC (14:20)
[2023-02-11] MEDS: 0.9% Saline Lock 10 ML Syringe IV (14:21)
--- NOTE | 2023-02-11 14:26 | NURSING ---
Alejandra in Lab informed this RN after RN called asking about COVID results that sample needed collected again since first sample was run under the wrong machine. This RN collected a MRSA swab and another COVID sample and sent to lab. Krysta in lab states she got both samples.
[2023-02-11 14:35] VITALS: BP 158/90; PULSE 95; RESP 18; TEMP 36.9; O2SAT 91
--- NOTE | 2023-02-11 14:52 | NURSING ---
pt has 300cc of urine in canister from [facility]. Pt states he feels he has some pressure in his bladder. This Nurse Bladder Scanned pt and obtained 527cc of urine. There is an order for [facility] from Dr. Andrews.
[2023-02-11 14:58] VITALS: O2SAT 92
[2023-02-11 16:45] LABS: M R Staph aureus DNA By PCR Negative (Negative); Probe Check PASS; Specimen Processing Control PASS
--- NOTE | 2023-02-11 17:04 | DS.PCM_ITS ---
Providers Date of Admission: 02/06/23 Date of Discharge: 02/11/23 Primary Care Physician: Dr. Angelique Grossman MD Consultations 02/07/23 00:42 Consult: Orthopedics Routine Consulting Provider: Teofilo Andrews Reason for Consult: Right femoral fracture EMERGENT Consult: No MD Notified: Yes Date Notified: 02/07/23 Time Notified: 06:17 Method of Notification: Text Reason For Visit: RIGHT HIP FRACTURE Diagnosis Discharge Diagnosis (1) Closed right hip fracture: Status: Acute Code(s): S72.001A - Fracture of unspecified part of neck of right femur, initial encounter for closed fracture Qualifiers: Encounter type: initial encounter Qualified Code(s): S72.001A - Fracture of unspecified part of neck of right femur, initial encounter for closed fracture Plan #Right femoral neck fracture- Patient underwent percutaneous screw fixation of right femoral neck fracture on 02/07/2023 by Teofilo Andrews DO #Severe aortic stenosis #Hypothyroidism #Hypertension #COPD #Depression #Physical deconditioning Medications at Discharge Home Medications acetaminophen 500 mg tablet 1,000 mg PO BID PRN PRN Pain 12/04/18 epinephrine 0.3 mg/0.3 mL injection, auto-injector 0.3 mg IJ PRN PRN Anaphylaxis 12/04/18 multivitamin 1 tab PO QAM vitamin 04/19/19 sertraline 100 mg tablet 100 mg PO DAILY mental health #90 tabs 06/10/22 fluticasone propionate 50 mcg/actuation nasal spray,suspension 2 spray intranasal DAILY allergies #16 grams 06/27/22 chlorthalidone 25 mg tablet 25 mg PO DAILY blood pressure #90 tabs 07/08/22 nystatin-triamcinolone 100,000 unit/g-0.1 % topical cream 1 applic topical BID PRN rash #30 grams 07/25/22 levothyroxine 75 mcg tablet 75 mcg PO DAILY thyroid #90 tabs 08/12/22 fluticasone propionate 230 mcg-salmeterol 21 mcg/actuation HFA inhaler 2 puff inhalation BID breathing #1 device 08/23/22 tiotropium bromide 2.5 mcg/actuation mist for inhalation (Spiriva Respimat) 2 puff inhalation QDAY breathing #1 ea 08/23/22 montelukast 10 mg tablet 10 mg PO QPM allergies #30 tabs 05/12/23 albuterol sulfate 90 mcg/actuation aerosol inhaler 2 puff inhalation Q4H PRN PRN Sob &/Or Wheezing #1 ea 10/29/22 ferrous sulfate 325 mg (65 mg iron) tablet (FeroSul) 325 mg PO DAILY iron 11/29/22 nitroglycerin 0.4 mg sublingual tablet 0.4 mg sublingual Q5-15M PRN CHEST PAIN #25 tabs 12/02/22 famotidine 40 mg tablet 40 mg PO DAILY reflux #90 tabs 01/02/23 albuterol sulfate 2.5 mg/3 mL (0.083 %) solution for nebulization 2.5 mg inhalation Q6H PRN shortness of breath or wheezing 01/30/23 enoxaparin 40 mg/0.4 mL subcutaneous syringe 40 mg (0.4 mL) subcut DAILY 30 days #12 mL 02/11/23 hydrocodone-acetaminophen 5-325mg 5mg-325mg 1 tab PO Q6H PRN PRN Pain Score 6-10 3 days #15 tabs 02/11/23 levofloxacin 750 mg tablet 750 mg PO DAILY 6 days #6 tabs 02/11/23 polyethylene glycol 3350 17 gram oral powder packet 17 g PO BID 7 days #30 ea 02/11/23 Hospital Course Procedures - (Patient underwent percutaneous screw fixation of right femoral neck fracture on 02/07/2023 by Teofilo Andrews DO) Summary of Care Provided Minutes Spent on Discharge: 45 Hospital Course: Patient is an 82-year-old gentleman who presented to the emergency department with a fall after tripping over his dog. Imaging studies obtained on admission demonstrated right femoral neck fracture admitted to regular nursing floor with consultation placed orthopedic surgery. Patient underwent percutaneous screw fixation of right femoral neck fracture on 02/07/2023 by Teofilo Andrews DO. Patient worked with physical therapy and placement was recommended, accepted to TCU and pre-CERT obtained. On day of discharge patient was complaining of sli ghtly productive cough and did have coarse breath sounds right greater than left, chest x-ray obtained showed infiltrate and given patient has been in the hospital feel it is reasonable to treat him with Levaquin, MRSA swab obtained to assess if he needed MRSA coverage and was negative. Given patient clinically stable and vitally stable do not think he continues to require acute hospitalization and it is still reasonable to send to TCU for rehab on antibiotics. Discharge instructions as follows: -It is recommended that your primary care physician recheck your thyroid function on an outpatient basis -Weightbearing as tolerated for your right lower extremity -You will be discharged on subcutaneous Lovenox for DVT prophylaxis -You had a cough and new infiltrate on x-ray and will be discharged on an additional 6 days of Levaquin -Please follow-up with Dr. Andrews with orthopedic upon discharge for follow-up and 2-week postop x-rays. Please call their office to schedule hospital follow- up appointment upon discharge. -Please call your primary care provider's office upon discharge to schedule a hospital follow up within 1 week. -For any concerning signs or symptoms please call 911 or proceed to the nearest emergency department Physical Exam Narrative General: Alert, oriented, no apparent distress HEENT: Atraumatic, normocephalic Eyes: Anicteric, normal conjunctiva, extraocular movements grossly intact Neck: Supple Respiratory: Coarse breath sounds at right base with some scattered wheezes, normal respiratory effort Cardiovascular: Systolic ejection murmur in left precordium, regular rate GI: Slightly firm but nontender and no rebound, guarding, rigidity Extremities: No significant edema Musculoskeletal: Moving all extremities Neuro: No overt focal neurological deficits Skin: No rashes appreciated, very minimal serosanguineous fluid on dressing over hip Psych: Cooperative Weight / BMI Weight Weight: 83.8 kg Body Mass Index (BMI) 28.0 ABG / Lab / Microbiology Data 02/11/23 06:58 02/11/23 06:58 Laboratory: Laboratory Results - last 24 hr 02/11/23 06:58: WBC 6.8, RBC 3.40 L, Hgb 9.7 L, Hct 31.4 L, MCV 92.4, MCH 28.5, MCHC 30.9 L, RDW Std Deviation 47.3 H, RDW Coeff of John 14.0, Plt Count 264, MPV 10.3, Immature Gran % (Auto) 1.900 H, Neut % (Auto) 80.3 H, Lymph % (Auto) 7.7 L , Cuming % (Auto) 6.3, Eos % (Auto) 3.4, Baso % (Auto) 0.4, Absolute Neuts (auto) 5.5, Absolute Lymphs (auto) 0.52 L, Nucleated RBC % 0, Differential Comment COMMENT, Sodium 137, Potassium 4.2, Chloride 108 H, Carbon Dioxide 23.0, Anion Gap 6, BUN 35 H, Creatinine 1.41 H, Estim Creat Clear Calc 37.73, Est GFR (MDRD) Af Amer 62, Est GFR (MDRD) Non-Af 51 L, BUN/Creatinine Ratio 24.8 H, Glucose 160 H, Calcium 8.6, Free T4 1.33 02/11/23 14:10: MRSA (PCR) Negative Microbiology: Microbiology 02/11/23 14:10 Nasal Secretion SARS-CoV-2 & FLU Antigen (Rapid) - Final 02/11/23 12:20 Mucosa - Nose Respiratory Panel (PCR) - Final Radiography Diagnostic Testing: Radiology Impression Chest X-Ray 02/11/23 10:15 IMPRESSION: New right basilar atelectasis and/or infiltrate. The remainder of the examination is unchanged. Electronically Signed: Antonio Kahn MD at 12:24 EDT , D/C Instructions Discharge Diet: No restrictions Meaningful Use Info Meaningful Use Diagnoses (Choose all that apply): None applicable Discharge Plan Admission Admit Date/Time: 02/06/23 23:04 Primary Reason for Your Visit: Hip fracture Attending Provider: Jaleesa Cali Primary Care Provider: Angelique Grossman Consulting Providers: Carlo Edwards; Teofilo Andrews; Shane Gandhi Instructions Patient Instructions: ED Fall Prevention Additional Instructions / Restrictions: DISCHARGE INSTRUCTIONS PLEASE READ *Please take this with you to your next doctors appointment* -It is recommended that your primary care physician recheck your thyroid function on an outpatient basis -Weightbearing as tolerated for your right lower extremity -You will be discharged on subcutaneous Lovenox for DVT prophylaxis -You had a cough and new infiltrate on x-ray and will be discharged on an additional 6 days of Levaquin -Please follow-up with Dr. Andrews with orthopedic upon discharge for follow-up and 2-week postop x-rays. Please call their office to schedule hospital follow- up appointment upon discharge. -Please call your primary care provider's office upon discharge to schedule a hospital follow up within 1 week. -For any concerning signs or symptoms please call 911 or proceed to the nearest emergency department Discharge Orders/Prescriptions Prescriptions: New enoxaparin 40 mg/0.4 mL Syringe 40 mg subcut DAILY 30 Days Qty: 12 0RF polyethylene glycol 3350 17 gram Powder In Packet 17 g PO BID 7 Days Qty: 30 0RF levofloxacin 750 mg Tablet 750 mg PO DAILY 6 Days Qty: 6 0RF hydrocodone-acetaminophen 5-325 mg Tablet 1 tab PO Q6H PRN PRN (Reason: Pain Score 6-10) 3 Days Qty: 15 0RF Continued multivitamin Tablet 1 tab PO QAM montelukast 10 mg tablet 10 mg PO QPM Qty: 30 3RF ferrous sulfate [FeroSul] 325 mg (65 mg iron) tablet 325 mg PO DAILY epinephrine 0.3 MG/0.3 ML auto-injector 0.3 mg IJ PRN PRN (Reason: Anaphylaxis) acetaminophen 500 MG tablet 1,000 mg PO BID PRN PRN (Reason: Pain) albuterol sulfate 2.5 mg /3 mL (0.083 %) solution for nebulization 2.5 mg INHALATION Q6H PRN (Reason: shortness of breath or wheezing) sertraline 100 mg tablet 100 mg PO DAILY Qty: 90 1RF fluticasone propionate 50 mcg/actuation spray,suspension 2 spray intranasal DAILY Qty: 16 3RF chlorthalidone 25 mg tablet 25 mg PO DAILY Qty: 90 3RF nystatin-triamcinolone 100,000-0.1 unit/g-% cream 1 applic topical BID PRN (Reason: rash) Qty: 30 1RF levothyroxine 75 mcg tablet 75 mcg PO DAILY Qty: 90 3RF fluticasone propion-salmeterol 230-21 mcg/actuation HFA aerosol inhaler 2 puff INHALATION BID Qty: 1 11RF Spiriva Respimat 2.5 mcg/actuation mist 2 puff INHALATION QDAY Qty: 1 11RF albuterol sulfate 90 mcg/actuation HFA aerosol inhaler 2 puff INHALATION Q4H PRN PRN (Reason: Sob &/Or Wheezing) Qty: 1 6RF nitroglycerin 0.4 mg tablet, sublingual 0.4 mg sublingual Q5-15M PRN (Reason: CHEST PAIN) Qty: 25 3RF famotidine 40 mg tablet 40 mg PO DAILY Qty: 90 3RF Discontinued cephalexin 500 mg capsule 500 mg PO Q6H 10 Days Qty: 40 0RF Referrals / Follow Up: Angelique Grossman MD [Primary Care Provider] - Within 1 Week Teofilo Andrews DO [Med Staff - Active Staff] - Within 2 Weeks Disposition Disposition (needs filled in before D/C Order can be placed): [facility] Charges/Coding Visit Charges Inpatient E&M: 83121 Disch Hosp >30min
--- NOTE | 2023-02-11 18:06 | NURSING ---
Report given to Maria Antonia GALLEGOS in TCU. Stacy to send pt over.
== END 2023-02-11 18:19 | disposition skilled nursing facility (03) | DRG 482 ==
LOC: ED 23:08 → MS3 23:14
PROVIDERS: Anesthesiology; Internal Medicine; Student in an Organized Health Care Education/Training Program; Admitting Provider Hospitalist; Emergency Provider Emergency Medicine; PCP Internal Medicine; Visit Provider Internal Medicine
PROC: 0QH Lower Bones, Insertion (ICD-10-PCS; principal; 2023-02-07 12:30)
DX: S72.041A Displaced fracture of base of neck of right femur, initial encounter for closed fracture (principal); D63.1 Anemia in chronic kidney disease; I27.21 Secondary pulmonary arterial hypertension; N18.30 Chronic kidney disease, stage 3 unspecified; J44.9 Chronic obstructive pulmonary disease, unspecified; F32.A Depression, unspecified; I12.9 Hypertensive chronic kidney disease with stage 1 through stage 4 chronic kidney disease, or unspecified chronic kidney disease; E03.9 Hypothyroidism, unspecified; I35.0 Nonrheumatic aortic (valve) stenosis; W18.09XA Striking against other object with subsequent fall, initial encounter; S01.01XA Laceration without foreign body of scalp, initial encounter; R53.81 Other malaise; R05.8 Other specified cough; Z96.642 Presence of left artificial hip joint; Z79.51 Long term (current) use of inhaled steroids; Z79.899 Other long term (current) drug therapy
CPT/HCPCS: 36415; 70450; 71045; 72125; 73080; 73501; 73502; 73630; 76000; 80048; 80053; 82306; 83735; 84100; 84439; 84443; 85025; 86850; 86900; 86901; 87428; 87633; 87641; 93005; 93971; 94640; 94668; 94762; 97110; 97162; 97166; 97530; 97535; 99252; 99285; C1713; J7030; J7120; A4216; G0463; J2405

== ENCOUNTER 2023-02-11 18:30 | Inpatient (IN) | payer MEDICARE, SELFPAY ==
[2023-02-11 19:57] VITALS: BP 119/67; PULSE 90; RESP 18; TEMP 36.3; O2SAT 94; BMI 28.6; BMI 28.8
--- NOTE | 2023-02-11 20:55 | NURSING ---
received call from pharmacy requesting albuterol inhaler and albuterol be clarified. notified of pharmacy request, Per Dr. Alvarez stop albuterol inhaler.
[2023-02-11 21:13] VITALS: PULSE 90; RESP 18; O2SAT 94
[2023-02-11] MEDS: HYDROcodone Bitartrate/Apap 5/325 Tablet PO (21:27)
[2023-02-11] MEDS: Fluticasone/Salmeterol 232-14 Inhaler 1 PUFF INHALATION (21:28)
[2023-02-11] MEDS: Montelukast 10 MG Tablet PO (21:30)
[2023-02-11] MEDS: Polyethylene Glycol 3350 17 GM PACKET PO (21:30)
--- NOTE | 2023-02-11 21:32 | HP.PCM_ITS ---
HPI - General General Date of Admission: 02/11/23 Date of Service: 02/12/23 Chief Complaint: Here for rehabilitation. HPI Narrative 02/06/2023 CARISSA VANG, is a 82 Male who presents to [facility] Emergency Department with fall, head injury. Fell, hit head on concrete, no loss of consciousness. Right elbow skin tear, occipital laceration. CT head okay, CT cervical spine okay. X-ray showed right hip fracture. Scalp laceration repaired. 02/06/2023 Admit to Hospital. Prepare for surgery. PT/OT right hip fracture. 02/07/2023 Possible TAVR for severe aortic stenosis as outpatient. 02/07/2023 Dr. Andrews performed percutaneous screw fixation right femoral neck fracture. 02/08/2023 Lovenox for DVT prophylaxis. 02/09/2023 Low back pain, Hemoglobin 9.7. SNF pending Pre-CERT. 02/10/2023 Pain, constipated, poor appetite. Bowel regimen added. TCU pending Pre-CERT. Chest X-ray showed infiltrate, treat with Levaquin. 02/11/2023 Admit to TCU with debility, here for rehabilitation, strengthening, prior to discharge home with . [facility] Medical History (Updated 02/11/23 @ 21:[address] 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, right Diverticulosis Diverticulosis Essential (primary) hypertension Gout Hay fever History of deep vein thrombosis of lower extremity HLD (hyperlipidemia) Hypothyroidism Iron deficiency anemia due to chronic blood loss Left ventricular diastolic dysfunction Leg wound, left Macular degeneration Non-pressure chronic ulcer of left calf with fat layer exposed Nonrheumatic aortic (valve) stenosis Osteoarthritis Pleural plaque Presence of cardiac pacemaker Pulmonary nodule Right knee DJD Secondary pulmonary arterial hypertension Skin cancer Traumatic open wound of right lower leg with infection Venous ulcer with fat layer exposed Home Medications acetaminophen 500 mg tablet 1,000 mg PO BID PRN PRN Pain 12/04/18 [History Last Taken 12/03/18] epinephrine 0.3 mg/0.3 mL injection, auto-injector 0.3 mg IJ PRN PRN Anaphylaxis 12/04/18 [History Last Taken Unknown] multivitamin 1 tab PO QAM vitamin 04/19/19 [History Last Taken 02/06/23] sertraline 100 mg tablet 100 mg PO DAILY mental health #90 tabs 06/10/22 [Rx Last Taken 02/06/23] fluticasone propionate 50 mcg/actuation nasal spray,suspension 2 spray intranasal DAILY allergies #16 grams 06/27/22 [Rx Last Taken Unknown] chlorthalidone 25 mg tablet 25 mg PO DAILY blood pressure #90 tabs 07/08/22 [Rx Last Taken 02/06/23] nystatin-triamcinolone 100,000 unit/g-0.1 % topical cream 1 applic topical BID PRN rash #30 grams 07/25/22 [Rx Last Taken Unknown] levothyroxine 75 mcg tablet 75 mcg PO DAILY thyroid #90 tabs 08/12/22 [Rx Last Taken 02/06/23] fluticasone propionate 230 mcg-salmeterol 21 mcg/actuation HFA inhaler 2 puff inhalation BID breathing #1 device 08/23/22 [Rx Last Taken 02/06/23] tiotropium bromide 2.5 mcg/actuation mist for inhalation (Spiriva Respimat) 2 puff inhalation QDAY breathing #1 ea 08/23/22 [Rx Last Taken 02/06/23] montelukast 10 mg tablet 10 mg PO QPM allergies #30 tabs 09/27/22 [Rx Last Taken 02/06/23] albuterol sulfate 90 mcg/actuation aerosol inhaler 2 puff inhalation Q4H PRN PRN Sob &/Or Wheezing #1 ea 10/29/22 [Rx Last Taken Unknown] ferrous sulfate 325 mg (65 mg iron) tablet (FeroSul) 325 mg PO DAILY iron 11/29/22 [History Last Taken 02/06/23] nitroglycerin 0.4 mg sublingual tablet 0.4 mg sublingual Q5-15M PRN CHEST PAIN #25 tabs 12/02/22 [Rx Last Taken Unknown] famotidine 40 mg tablet 40 mg PO DAILY reflux #90 tabs 01/02/23 [Rx Last Taken 02/06/23] albuterol sulfate 2.5 mg/3 mL (0.083 %) solution for nebulization 2.5 mg inhalation Q6H PRN shortness of breath or wheezing 01/30/23 [History Last Taken 02/06/23] enoxaparin 40 mg/0.4 mL subcutaneous syringe 40 mg (0.4 mL) subcut DAILY 30 days #12 mL 02/11/23 [Rx Last Taken Unknown] hydrocodone-acetaminophen 5-325mg 5mg-325mg 1 tab PO Q6H PRN PRN Pain Score 6-10 3 days #15 tabs 02/11/23 [Rx Last Taken Unknown] levofloxacin 750 mg tablet 750 mg PO DAILY 6 days #6 tabs 02/11/23 [Rx Last Taken Unknown] polyethylene glycol 3350 17 gram oral powder packet 17 g PO BID 7 days #30 ea 02/11/23 [Rx Last Taken Unknown] Allergy/AdvReac Type Severity Reaction Status Date / Time indomethacin [From Indocin] AdvReac Intermediate Itching Verified 02/06/23 20:42 indomethacin sodium AdvReac Intermediate Itching Verified 02/06/23 20:42 [From Indocin] oxycodone HCl [From Percocet] AdvReac Intermediate Itching Verified 02/06/23 20:42 Family History Father Heart disease Colon cancer Sister Diabetes Mother Breast cancer Surgical History H/O hernia repair H/O prostatectomy H/O shoulder surgery H/O total knee replacement History of appendectomy History of appendectomy History of carpal tunnel surgery History of hernia repair History of left heart catheterization (02/25/22) History of prostatectomy History of total knee replacement History of total left hip replacement History of total left hip replacement Social History household members: spouse housing: house Smoking Status: Never smoker second hand exposure: Yes alcohol intake: current alcohol intake frequency: holidays/special occasions only Alcohol type: beer substance use type: does not use caffeine: Yes Type: coffee Number of servings: 2 what type of physical activity do you participate in: walking frequency: daily giancarlo/orthodox: Restoration seatbelt use: always do you feel safe at home: Yes ROS Constitutional Constitutional: Denies chills, fever(s) or weight gain ENT HEENT: Denies headache(s), nasal congestion or nasal discharge Cardiovascular Cardiovascular: Denies chest pain or palpitations Respiratory/Chest Respiratory/Chest: Denies cough, excessive phlegm production or shortness of breath with exertion Gastrointestinal Gastrointestinal: Denies abdominal pain, nausea or vomiting Genitourinary Genitourinary: Denies dysuria Musculoskeletal Musculoskeletal: Denies joint pain or joint swelling Integumentary Integumentary: Denies rash or wounds Neurologic Neurologic: Denies focal weakness, numbness or tingling Psychiatric Psychiatric: Denies anxiety, auditory hallucinations, depression, homicidal ideation or suicidal ideation Vital Signs Vital Signs Vital Signs: 02/11/23 19:57 Temperature 97.3 F L Temperature Source Temporal Pulse Rate 90 Respiratory Rate 18 Blood Pressure 119/67 Blood Pressure Mean 84 Blood Pressure Source Monitor Blood Pressure Position Semi-Fowlers Blood Pressure Location Left Arm Pulse Ox 94 Oxygen Delivery Method Room Air Weight Weight: 85.786 kg Body Mass Index (BMI) 28.6 Physical Exam Const alert General Appearance: cooperative HEENT normocephalic Eyes PERRL and EOMs intact bilaterally Neck supple, no JVD and no carotid bruits Resp normal respiratory effort, normal air movement and clear to auscultation bilaterally Cardio regular rate and regular rhythm GI normal to inspection, nondistended, normoactive bowel sounds, non-tender and non-distended Extremity normal capillary refill General Extremity: Negative for edema Skin no rashes or lesions noted General Skin Exam: no breakdown Psych affect normal Appearance: appropriate Results Lab / Micro Data 02/12/23 05:21 02/12/23 05:21 Assessment & Plan Assessment/Plan (1) Debility: (2) Closed right hip fracture: QUALIFIERS: Encounter type: initial encounter Qualified Code(s): S72.001A - Fracture of unspecified part of neck of right femur, initial encounter for closed fracture (3) Hip fracture requiring operative repair: (4) Closed head injury: (5) Depression: (6) Hypertension: (7) Allergic rhinitis: (8) Hypothyroidism: (9) Asthma: QUALIFIERS: Asthma complication type: unspecified Asthma severity: unspecified severity (10) Iron deficiency anemia: (11) GERD (gastroesophageal reflux disease): (12) Severe aortic stenosis: PLAN: Plan 82 year old male with below past medical history hospitalized for right hip fracture, underwent percutaneous screw fixation right femoral neck fracture 02/07/[address] Andrews, admitted to TCU with debility, here for rehabilitation, strengthening, prior to discharge home with . * Debility - PT/OT. * Pain - Tylenol 1000mg q8, Tramadol 50mg q6h prn pain (1-5), Oxycodone 2.5mg q4h prn pain (6-10). * Bowel - Miralax 17gm bid, senna/colace 2 tablets bid, Magnesium citrate 300ml daily prn. * Adult immunization - Administer pneumonia vaccine, covid19 vaccine, flu vaccine as appropriate. * DVT prophylaxis - Lovenox 40mg sc daily. * Asthma/COPD - Albuterol 2.5mg q6h prn, Advair 1 puff bid, Incruse 1 puff daily, Singulair 10mg qhs. * Hypertension - Chlorthalidone 25mg daily. * Anaphylaxis - Epipen 0.3mg im x 1 prn. * GERD - Famotidine 40mg daily. * Iron deficiency anemia - Ferrous sulfate 325mg daily. * Allergic rhinitis - Flonase 2 sprays daily * Hospital acquired pneumonia - Levaquin 750mg q48 thru 02/17/2023. * Hypothyroidism - Levothyroxine 75mcg daily. * Nutrition - MVI daily. * Coronary artery disease - NTG 0.4mg sl q5m prn. * Depression - Sertraline 100mg daily, stable chronic care home use, GDR not recommended.
--- NOTE | 2023-02-11 21:37 | NURSING ---
Spoke to pt about code status. Pt voiced he would like to talk to his regarding the matter before making a decision. Pt states that she will be visiting him tomorrow (02/12/23)
[2023-02-11] MEDS: Senna/Docusate Sodium 1 Tablet 2 TABLET PO (22:38)
[2023-02-11] MEDS: Acetaminophen 500 MG Tablet 1000 MG PO (22:38)
[2023-02-12] MEDS: Magnesium Citrate 300 ML PO (03:42)
[2023-02-12] MEDS: Acetaminophen 500 MG Tablet 1000 MG PO (05:02)
[2023-02-12] MEDS: Levothyroxine 75 MCG Tablet PO (05:02)
[2023-02-12 05:49] LABS: Absolute Lymphocyte Count 0.47 X10^3/uL (0.83-4.51); Absolute Neutrophil Count 5.3 X10^3/uL (2.0-7.7); Basophil# 0.03 X10^3/uL; Basophil% 0.4 % (0-1); Eosinophil# 0.24 X10^3/uL; Eosinophils% 3.5 % (0-5); Hematocrit 30.1 % (40-54); Hemoglobin 9.2 g/dL (13.0-16.5); Lymphocyte # 0.47 X10^3/ul (0.83-4.51); Lymphocyte % 6.9 % (19-41); Mean Corp Hgb Conc 30.6 g/dL (32-36); Mean Corpuscular Hgb 28.4 pg (27.0-32.0); Mean Corpuscular Volume 92.9 fL (80-94); Mean Platelet Vol. 9.9 fl (6.2-12.0); Monocyte# 0.52 X10^3/uL; Monocyte% 7.7 % (0-10); NRBC Flagged by Analyzer 0 % (0-5); Neutrophil % 78.3 % (47-70); POSITIVE DIFFERENTIAL YES; Platelet Count 290 K/mm3 (150-450); RBC Distribution Width CV 14.1 % (11.6-14.6); Red Blood Count 3.24 M/mm3 (4.6-6.2); White Blood Count 6.8 K/mm3 (4.4-11.0)
[2023-02-12 05:52] LABS: Differential Indicated SCAN CRITERIA MET
[2023-02-12 06:14] LABS: Anion Gap 6 (5-15); BUN 33 mg/dL (7-18); BUN/Creat Ratio 24.4 RATIO (10-20); Calcium,Total 8.8 mg/dL (8.5-10.1); Chloride 105 mmol/L (98-107); Creatinine, Serum 1.35 mg/dL (0.70-1.30); EST Glomerular Filtration Rate 54 mL/min (>60); Est Glom Filt Rate - Afr Amer 65 mL/min (>60); Estimated Creatinine Clearance 39.41 ml/min; Glucose 125 mg/dL (74-106); Potassium 4.4 mmol/L (3.5-5.1); Sodium Level 136 mmol/L (136-145)
[2023-02-12 06:15] LABS: Anisocytosis 1+; Differential Comment SCANNED; Microcytosis 1+
[2023-02-12] MEDS: Polyethylene Glycol 3350 17 GM PACKET PO ×2 (08:11→19:36)
[2023-02-12] MEDS: Enoxaparin 40 MG/0.4 ML Syringe SC (08:11)
[2023-02-12] MEDS: Chlorthalidone 50 MG Tablet 25 MG PO (08:12)
[2023-02-12] MEDS: Famotidine 20 MG Tablet 40 MG PO (08:12)
[2023-02-12] MEDS: Sertraline 100 MG Tablet PO (08:12)
[2023-02-12] MEDS: Multivitamins,Therapeutic Tablet 1 TABLET PO (08:12)
[2023-02-12] MEDS: Senna/Docusate Sodium 1 Tablet 2 TABLET PO ×2 (08:12→20:46)
[2023-02-12] MEDS: Umeclidinium Bromide Inhaler 1 PUFF INHALATION (08:15)
[2023-02-12] MEDS: Fluticasone/Salmeterol 232-14 Inhaler 1 PUFF INHALATION ×2 (08:15→19:37)
[2023-02-12] MEDS: Fluticasone 0.05% 1 SPRAY NASAL.SRY 2 SPRAY NASAL (08:15)
[2023-02-12] MEDS: HYDROcodone Bitartrate/Apap 5/325 Tablet PO ×2 (09:51→15:09)
[2023-02-12] MEDS: Tuberculin,Purif.prot.deriv. 50 TU/ML Vial 0.1 ML ID (09:54)
--- NOTE | 2023-02-12 10:17 | NURSING ---
Chemical Laboratory Technician Note; Activity Asset: Markell Callahan is independent in his choice of daily activities. His family will visit and he welcomes visit from the mines safety engineer and therapy dog. He will read the newspaper and daily when available. Due to his pain at this time he prefers to do independent activities in his room or rest when able to. Staff will continue to remind him of daily activities and respect his right to say no.
[2023-02-12] MEDS: traMADol 50 MG Tablet PO (11:58)
[2023-02-12] MEDS: Ferrous Sulfate 325 MG Tablet PO (11:58)
[2023-02-12] MEDS: Ensure Plus High Protein 120 ML LIQUID PO ×3 (11:58→20:46)
--- NOTE | 2023-02-12 12:22 | CASEMGMT ---
Social Work Met with patient to complete initial assessment. Introduced self and role. Verified/updated contacts. Discussed code status and pt confirmed full code. Pt has advanced directives scanned into chart as of 2018 but it is not a complete scan. Pt agreeable for to bring in copies again. Educated to [facility] insurance with [employer] 02/12 and continued stay is not guaranteed with each review. See SW assessment for barriers with assistance. SW will continue to follow for DC planning. Zoraida Michael, DIMENSION SPECIFICATION INSPECTOR SERVICE SPRINKLER HELPER
[2023-02-12 15:01] VITALS: BP 155/88; PULSE 95; RESP 18; TEMP 36.7; O2SAT 95
[2023-02-12] MEDS: Lactulose 20 GM/30 ML UDC PO (19:34)
[2023-02-12] MEDS: Montelukast 10 MG Tablet PO (20:46)
[2023-02-12] MEDS: Mirtazapine 15 MG Tablet 7.5 MG PO (20:46)
[2023-02-13] MEDS: HYDROcodone Bitartrate/Apap 5/325 Tablet PO ×2 (01:49→06:20)
--- NOTE | 2023-02-13 02:09 | NURSING ---
Mepilex dsrg to R hip incision noted to have a moderate amount of serosanguineous drainage on it. Mepilex removed. Surgical incision well approximated. No redness or edema noted. [address] Incision cleansed w/ NS and covered w/ DSD.
[2023-02-13] MEDS: traMADol 50 MG Tablet PO (03:18)
[2023-02-13 05:51] LABS: Hematocrit 30.6 % (40-54)
[2023-02-13] MEDS: Levothyroxine 75 MCG Tablet PO (06:20)
[2023-02-13] MEDS: levoFLOXacin 750 MG Tablet PO (06:20)
[2023-02-13] MEDS: Ensure Plus High Protein 120 ML LIQUID PO ×4 (06:22→20:46)
[2023-02-13 06:29] VITALS: PULSE 98; RESP 18; O2SAT 94
[2023-02-13] MEDS: Chlorthalidone 50 MG Tablet 25 MG PO (08:50)
[2023-02-13] MEDS: Famotidine 20 MG Tablet 40 MG PO (08:50)
[2023-02-13] MEDS: Enoxaparin 40 MG/0.4 ML Syringe SC (08:51)
[2023-02-13] MEDS: Ferrous Sulfate 325 MG Tablet PO (08:51)
[2023-02-13] MEDS: Polyethylene Glycol 3350 17 GM PACKET PO ×2 (08:51→20:45)
[2023-02-13] MEDS: Fluticasone/Salmeterol 232-14 Inhaler 1 PUFF INHALATION ×2 (08:51→20:45)
[2023-02-13] MEDS: Multivitamins,Therapeutic Tablet 1 TABLET PO (08:51)
[2023-02-13] MEDS: Umeclidinium Bromide Inhaler 1 PUFF INHALATION (08:51)
[2023-02-13] MEDS: Sertraline 100 MG Tablet PO (08:51)
[2023-02-13] MEDS: Fluticasone 0.05% 1 SPRAY NASAL.SRY 2 SPRAY NASAL (08:52)
--- NOTE | 2023-02-13 13:41 | PCM.PN.DRR ---
TCU RX Drug Regimen Review Subjective/Objective Subjective/Objective: Subjective: 82 YOM admitted to TCU 02/11/23 s/p hospitalization for right hip fracture after a fall. Had a percutaneous screw fixation of the right femoral neck. Admitted for strengthening and rehabilitation prior to discharge home where he resides with his . Objective: Allergies indomethacin [From Indocin] Adverse Reaction (Intermediate, Verified 02/06/23 20:42) Itching indomethacin sodium [From Indocin] Adverse Reaction (Intermediate, Verified 02/06/23 20:42) Itching oxycodone HCl [From Percocet] Adverse Reaction (Intermediate, Verified 02/06/23 20:42) Itching Current Medications Generic Name Dose Route Start Last Admin Trade Name Freq PRN Reason Stop Dose Admin Acetaminophen 1,000 mg 02/12/23 07:45 Acetaminophen 500 Mg Tablet PO Q6H PRN PRN Pain Score 1-3 Hydrocodone Bitart/Acetaminophen 1 tablet 02/12/23 07:44 02/13/23 06:20 Hydrocodone Bitartrate/Apap 5/325 Tablet PO 1 tablet Q4H PRN PRN Administration Pain Score 6-10 Albuterol Sulfate 2.5 mg 02/11/23 19:25 Albuterol 2.5 Mg/3 Ml Vial.Neb. INHALATION Q6H PRN PRN shortness of breath or wheezing Calcium Carbonate 1,000 mg 02/12/23 07:43 Calcium Carbonate 500 Mg Tablet PO Q4H PRN PRN INDIGESTION Chlorthalidone 25 mg 02/12/23 10:00 02/13/23 08:50 Chlorthalidone 50 Mg Tablet PO 25 mg DAILY SWATHI Administration Enoxaparin Sodium 40 mg 02/12/23 10:00 02/13/23 08:51 Enoxaparin 40 Mg/0.4 Ml Syringe SC 40 mg DAILY SWATHI Administration Epinephrine HCl 0.3 mg 02/11/23 19:44 Epi Pen (Equiv) 0.3 Mg Syringe IM X1 PRN Anaphylaxis Famotidine 40 mg 02/12/23 10:00 02/13/23 08:50 Famotidine 20 Mg Tablet PO 40 mg DAILY SWATHI Administration Ferrous Sulfate 325 mg 02/12/23 12:00 02/13/23 08:51 Ferrous Sulfate 325 Mg Tablet PO 325 mg LUNCH SWATHI Administration Fluticasone Propionate 2 spray 02/12/23 10:00 02/13/23 08:52 Fluticasone 0.05% 1 [place] Nasal.Sry NASAL 2 spray DAILY SWATHI Administration Levofloxacin 750 mg 02/13/23 06:00 02/13/23 06:20 Levofloxacin 750 Mg Tablet PO 02/17/23 06:01 750 mg Q48@0600 SWATHI Administration Levothyroxine Sodium 75 mcg 02/12/23 06:00 02/13/23 06:20 Levothyroxine 75 Mcg Tablet PO 75 mcg DAILY@0600 SWATHI Administration Magnesium Citrate 300 ml 02/11/23 21:47 02/12/23 03:42 Magnesium Citrate 300 Ml PO 70 ml DAILY PRN PRN Administration Constipation Mirtazapine 7.5 mg 02/12/23 22:00 02/12/23 20:46 Mirtazapine 15 Mg Tablet PO 7.5 mg QHS SWATHI Administration Montelukast Sodium 10 mg 02/11/23 22:00 02/12/23 20:46 Montelukast 10 Mg Tablet PO 10 mg QHS SWATHI Administration Multivitamins 1 tablet 02/12/23 08:00 02/13/23 08:51 Multivitamins,Therapeutic Tablet PO 1 tablet DAILYCM SWATHI Administration Nitroglycerin 0.4 mg 02/11/23 20:19 Nitroglycerin (Inpatient Use) 0.4 Mg Tab.Subl SL Q5M PRN CHEST PAIN Nutritional Formula (Lactose Free) 120 ml 02/12/23 12:00 02/13/23 13:17 Ensure Plus High Protein 120 Ml Liquid PO 120 ml 4X/DAY SWATHI Administration Nystatin/Triamcinolone Acetonide 1 applic 02/11/23 19:30 Nystatin/Triamcin Cream Tube TOPICAL BID PRN rash Protocol Polyethylene Glycol 17 gm 02/11/23 22:00 02/13/23 08:51 Polyethylene Glycol 3350 17 Gm Packet PO 17 gm BID SWATHI Administration Fluticasone/Salmeterol 1 puff 02/11/23 22:00 02/13/23 08:51 Fluticasone/Salmeterol 232-14 Inhaler INHALATION 1 puff BID SWATHI Administration Senna/Docusate Sodium 2 tablet 02/11/23 22:00 02/13/23 08:51 Senna/Docusate Sodium 1 Tablet PO Not Given BID SWATHI Sertraline HCl 100 mg 02/12/23 10:00 02/13/23 08:51 Sertraline 100 Mg Tablet PO 100 mg DAILY SWATHI Administration Sodium Chloride 10 - 40 ml 02/11/23 20:57 0.9% Saline Lock 10 Ml Syringe IV UD PRN SALINE FLUSH Tramadol HCl 50 mg 02/12/23 07:45 02/13/23 03:18 Tramadol 50 Mg Tablet PO 50 mg Q6H PRN PRN Administration Pain Score 4-5 Tuberculin PPD 0.1 ml 02/19/23 10:00 Tuberculin,Purif.Prot.Deriv. 50 Tu/Ml Vial ID 02/19/23 10:01 X1 ONE Umeclidinium [place] 1 puff 02/12/23 10:00 02/13/23 08:51 Umeclidinium [place] Inhaler INHALATION 1 puff DAILY SWATHI Administration Problem List (Updated 02/13/23 @ 00:01 by Ciara Alvares) Severe aortic stenosis (Acute) Iron deficiency anemia (Acute) Allergic rhinitis (Acute) Hypertension (Chronic) Depression (Acute) Closed head injury (Acute) Debility (Acute) Hip fracture requiring operative repair (Acute) Closed right hip fracture (Acute) Asthma (Chronic) GERD (gastroesophageal reflux disease) (Chronic) Hypothyroidism (Chronic) Vital Signs Temp Pulse Resp BP Pulse Ox O2 Del Method 98.0 F 98 18 155/88 H 94 Room Air 02/12/23 15:01 02/13/23 06:29 02/13/23 06:29 02/12/23 15:01 02/13/23 06:29 02/13/23 06:29 Oxygen Delivery Method Room Air Weight: 85.786 kg Body Mass Index (BMI) 28.6 Sodium 136 mmol/L (136-145) 02/12/23 05:21 Potassium 4.4 mmol/L (3.5-5.1) 02/12/23 05:21 Chloride 105 mmol/L (98-107) 02/12/23 05:21 Carbon Dioxide 25.0 mmol/L (21.0-32.0) 02/12/23 05:21 Anion Gap 6 (5-15) 02/12/23 05:21 BUN 33 mg/dL (7-18) H 02/12/23 05:21 Creatinine 1.35 mg/dL (0.70-1.30) H 02/12/23 05:21 Est GFR (MDRD) Af Amer 65 mL/min (>60) 02/12/23 05:21 Est GFR (MDRD) Non-Af 54 mL/min (>60) L 02/12/23 05:21 BUN/Creatinine Ratio 24.4 RATIO (10-20) H 02/12/23 05:21 Glucose 125 mg/dL (74-106) H 02/12/23 05:21 Assessment/Plan: 1. Pain: Tylenol 1000mg PO Q6h PRN Pain 1-3, Tramadol 50mg PO Q6h PRN Pain 4-5, [place] 1 tab PO Q4h PRN pain 6-10. Please continue to monitor for increased/decreased S/S pain, oversedation with narcotic use, constipation, amount of Tylenol being administered in a 24hr period (do not exceed 4g/day). -To date; the patient has used 0 doses of Tylenol, 2 doses/day of Tramadol, and 4 doses/day of [place]. Pain pre-medication rated 6-10/10, post-admin pain rated 0-3/10. It appears pain is being managed at this time. 2. Hospital Acquired Pneumonia: Levofloxacin 750mg PO Q48h thru 02/17/23. Please continue to monitor for resolution of infection, CrCl (last 39 mL/min on 02/12), N/V, diarrhea, culture data if clinically applicable. 3. Asthma/ Allergic rhinitis: Advair inhaler 1 puff BID, Incruse 1 puff daily, Singulair 10mg PO QHS, Albuterol inhalation Q6h PRN, Flonase 2 sprays nasally daily. Please continue to monitor respiratory status, PRN medication use, Heart rate (range 84-98), nasal irritation. 4. Hypertension/ CAD: Chlorthalidone 25mg PO Daily, Nitrostat tabs Q5min PRN. Please continue to monitor electrolytes (stable labs on 02/12), BP (range 117-158/65-90). 5. GERD: Pepcid 40mg PO Daily, Calcium Carbonate 1000mg PO Q4h PRN indigestion. Please continue to monitor renal function, S/S GERD flare-ups, PRN medication use. Please also encourage non-pharmacologic treatments to help minimize GERD exacerbation. 6. Hypothyroid: Synthroid 75mcg PO daily. Please continue to monitor TSH levels (last 7.81 02/08). Patient with elevated TSH level on current home dose of Synthroid. Please consider increasing dose if clinically indicated given elevated TSH, thank you. 7. Iron deficiency Anemia: Ferrous sulfate 325mg PO daily. Please continue to monitor H/H (Hgb 10, Hct 30.6 on 02/13), S/S bleeding. 8. DVT Prophylaxis: Lovenox 40mg SC Daily. Please continue to monitor for S/S bleeding/bruising, H/H (Hgb 10, Hct 30.6 on 02/13), renal function (CrCl 39mL/min on 02/12). 9. Anaphylaxis History: Epipen 0.3mg IM PRN. 10. General wellness: MVI 1 tab PO daily. 11. Skin Integrity: Nystatin/Triamcinolone cream topically BID PRN. Please continue to monitor for development of rash, skin irritation. 12. Bowel: Miralax 17g PO BID, Senna-S 2 tab PO BID, Magnesium Citrate 300mL PO Daily PRN. Please continue to monitor for increased/decreased constipation and/or diarrhea. - The patient has not yet had a bowel movement per EMR review. Please consider administering Magnesium Citrate if the patient does not have a bowel movement in the next 24hrs. Assessment/Plan for indications treated with psychotropic medications: 1. Depression: Zoloft 100mg PO daily. Please evaluate and consider a GDR by 07/2023 if clinically indicated, thank you. 2. Insomnia: Remeron 7.5mg PO QHS. Please evaluate and consider a GDR by 07/2023 if clinically indicated, thank you. Medical chart and medication regimen reviewed. The following medication irregularities or issues were identified: 1. Synthroid 75mcg PO daily: Patient with elevated TSH level on current home dose of Synthroid. Please consider increasing dose if clinically indicated given elevated TSH, thank you. 2. Depression: Zoloft 100mg PO daily. Please evaluate and consider a GDR by 07/2023 if clinically indicated, thank you. 3. Insomnia: Remeron 7.5mg PO QHS. Please evaluate and consider a GDR by 07/2023 if clinically indicated, thank you. Date Date of Note:: 02/13/23
--- NOTE | 2023-02-13 14:10 | NURSING ---
Patient reported increase in pain in the right shoulder, Inability to feed self due to this. Patient also had difficulty swallowing medication which is not out of the ordinary. Speech therapy consult ordered for this patient- MD notified of right shoulder pain.
[2023-02-13 15:58] VITALS: BP 139/72; PULSE 99; RESP 14; TEMP 36.9; O2SAT 93
--- NOTE | 2023-02-13 17:40 | RAD_ITS ---
STUDY: X-RAY - RIGHT SHOULDER REASON FOR EXAM: Male, 82 years old. Pain TECHNIQUE: 2 view(s) of the shoulder. COMPARISON: 11/14/2020. FINDINGS: There is cephalad migration of the humeral head consistent with rotator cuff pathology. Mild glenohumeral osteoarthritis. There is degenerative arthrosis of the acromioclavicular joint without inferior osseous spur formation. Normal acromion. Normal humeral head and visualized proximal humerus. The soft tissue structures are unremarkable. There is no demonstrated fracture. Stable calcified pleural plaques in the right chest. RAD/Shoulder min 2 Views IMPRESSION: No acute fracture or dislocation. Evidence of complete chronic rotator cuff tear and degenerative changes. Electronically Signed: Juan Cottrell MD at 19:38 EDT ,
[2023-02-13] MEDS: Mirtazapine 15 MG Tablet 7.5 MG PO (20:45)
[2023-02-13] MEDS: Montelukast 10 MG Tablet PO (20:45)
[2023-02-13] MEDS: Senna/Docusate Sodium 1 Tablet 2 TABLET PO (20:45)
[2023-02-13] MEDS: Acetaminophen 500 MG Tablet 1000 MG PO (20:50)
[2023-02-14] MEDS: Levothyroxine 75 MCG Tablet PO (05:28)
[2023-02-14] MEDS: Acetaminophen 500 MG Tablet 1000 MG PO ×3 (05:28→21:20)
[2023-02-14] MEDS: Ensure Plus High Protein 120 ML LIQUID PO ×4 (05:29→21:20)
[2023-02-14 10:00] VITALS: PULSE 90; RESP 16; O2SAT 95
[2023-02-14] MEDS: traMADol 50 MG Tablet PO ×2 (10:33→19:56)
[2023-02-14] MEDS: Senna/Docusate Sodium 1 Tablet 2 TABLET PO ×2 (10:33→21:20)
[2023-02-14] MEDS: Sertraline 100 MG Tablet PO (10:33)
[2023-02-14] MEDS: Chlorthalidone 50 MG Tablet 25 MG PO (10:34)
[2023-02-14] MEDS: Fluticasone 0.05% 1 SPRAY NASAL.SRY 2 SPRAY NASAL (10:34)
[2023-02-14] MEDS: Fluticasone/Salmeterol 232-14 Inhaler 1 PUFF INHALATION ×2 (10:34→21:18)
[2023-02-14] MEDS: Multivitamins,Therapeutic Tablet 1 TABLET PO (10:34)
[2023-02-14] MEDS: Famotidine 20 MG Tablet 40 MG PO (10:34)
[2023-02-14] MEDS: Umeclidinium Bromide Inhaler 1 PUFF INHALATION (10:40)
[2023-02-14] MEDS: Enoxaparin 40 MG/0.4 ML Syringe SC (10:40)
[2023-02-14] MEDS: Polyethylene Glycol 3350 17 GM PACKET PO ×2 (10:40→21:18)
[2023-02-14 10:56] VITALS: BP 139/76; PULSE 90; RESP 18; TEMP 36.4; O2SAT 99
[2023-02-14] MEDS: Ferrous Sulfate 325 MG Tablet PO (12:09)
[2023-02-14] MEDS: Mirtazapine 15 MG Tablet 7.5 MG PO (21:19)
[2023-02-14] MEDS: Montelukast 10 MG Tablet PO (21:20)
[2023-02-15] MEDS: Ensure Plus High Protein 120 ML LIQUID PO (05:53)
[2023-02-15] MEDS: Acetaminophen 500 MG Tablet 1000 MG PO ×2 (05:54→19:48)
[2023-02-15] MEDS: levoFLOXacin 750 MG Tablet PO (05:55)
[2023-02-15] MEDS: Levothyroxine 75 MCG Tablet PO (05:55)
[2023-02-15 07:31] LABS: Hematocrit 32.1 % (40-54); Hemoglobin 10.3 g/dL (13.0-16.5)
--- NOTE | 2023-02-15 08:25 | NURSING ---
Addendum entered by Maia Hernandez 02/15/23 08:56: Per 1L NS 0.9 % Bolus and MRI Brain w/o contrast to be ordered. Notified Charge nurse to place orders for Pt. Precert to be done for MRI. MD oro w/ scan not being STAT. Original Note: Patient c/o dizziness. Upon assessment VSS 120/70 HR: 93 14RR 97.5 for temperature, SPO2 94% on Room Air. Denies CP/SOB. Patient noted to also feel like Macular Degeneration is worsening. Notified .
[2023-02-15] MEDS: Chlorthalidone 50 MG Tablet 25 MG PO (08:28)
[2023-02-15] MEDS: Famotidine 20 MG Tablet 40 MG PO (08:28)
[2023-02-15] MEDS: Polyethylene Glycol 3350 17 GM PACKET PO ×2 (08:29→19:45)
[2023-02-15] MEDS: Fluticasone 0.05% 1 SPRAY NASAL.SRY 2 SPRAY NASAL (08:29)
[2023-02-15] MEDS: Enoxaparin 40 MG/0.4 ML Syringe SC (08:29)
[2023-02-15] MEDS: Multivitamins,Therapeutic Tablet 1 TABLET PO (08:29)
[2023-02-15] MEDS: Sertraline 100 MG Tablet PO (08:30)
[2023-02-15] MEDS: Senna/Docusate Sodium 1 Tablet 2 TABLET PO ×2 (08:30→19:46)
[2023-02-15] MEDS: Umeclidinium Bromide Inhaler 1 PUFF INHALATION (08:35)
[2023-02-15] MEDS: Fluticasone/Salmeterol 232-14 Inhaler 1 PUFF INHALATION ×2 (08:36→19:47)
[2023-02-15 10:00] VITALS: PULSE 74; RESP 14; O2SAT 96
[2023-02-15] MEDS: 0.9% Normal Saline (1000mL) 1,000 ML 999 ML IV (11:10)
[2023-02-15] MEDS: traMADol 50 MG Tablet PO ×2 (11:43→19:44)
--- NOTE | 2023-02-15 16:18 | NURSING ---
Patient talking to self in room periodically today. Patient concerned for onset of dementia. Patient to be have UA C&S done. Patient straight catherized for 1650 cc of urine. Charge nurse Notified. PVR's to be checked due to retention. Specimen sent to lab
[2023-02-15 16:21] LABS: Bacteria 0 SEEN /hpf (None Seen); Mucous, Urine 0 SEEN /hpf (<or=2+); Red Blood Cells-Urine 0 SEEN /hpf (0-5); Squamous Epithelial Cells - UA 0 SEEN /hpf (0-5)
[2023-02-15 16:24] LABS: Color, Urine Yellow (Yellow); Glucose, Dipstick Normal (Normal); Ketone-Dipstick Negative (Negative); Leukocyte Esterase-Dipstick Negative /ul (Negative); Nitrite-Dipstick Negative (Negative); Occult Blood-Urine Negative /ul (Negative); Protein-Dipstick Negative (Negative); Urine Bilirubin Dipstick Negative (Negative); Urine Clarity Clear (Clear); Urine Urobilinogen Normal (Normal)
[2023-02-15 16:43] LABS: White Blood Cells 0-5 SEEN /hpf (0-5)
[2023-02-15] MEDS: Mirtazapine 15 MG Tablet 7.5 MG PO (19:47)
[2023-02-15] MEDS: Montelukast 10 MG Tablet PO (19:48)
[2023-02-15 19:56] VITALS: BP 128/79; PULSE 91; RESP 18; TEMP 36.8
[2023-02-15 19:58] VITALS: PULSE 91; RESP 18; O2SAT 94
[2023-02-16] MEDS: Acetaminophen 500 MG Tablet 1000 MG PO ×3 (05:10→19:44)
[2023-02-16] MEDS: Ensure Plus High Protein 120 ML LIQUID PO ×3 (05:10→19:42)
[2023-02-16] MEDS: Levothyroxine 75 MCG Tablet PO (05:10)
--- NOTE | 2023-02-16 06:30 | NURSING ---
LAST PATTERN GRADER notified this nurse that the pt still had yet to urinate this HS. Bladder scanned at 793cc pre, straight cathed for an output of 1150cc, post scanned at 16cc. Tolerated well, will continue to monitor, now resting with call light in reach.No c/o pain or discomfort.
[2023-02-16] MEDS: Umeclidinium Bromide Inhaler 1 PUFF INHALATION (08:56)
[2023-02-16] MEDS: Fluticasone/Salmeterol 232-14 Inhaler 1 PUFF INHALATION ×2 (08:56→19:42)
[2023-02-16] MEDS: Fluticasone 0.05% 1 SPRAY NASAL.SRY 2 SPRAY NASAL (08:56)
[2023-02-16] MEDS: Chlorthalidone 50 MG Tablet 25 MG PO (08:57)
[2023-02-16] MEDS: Famotidine 20 MG Tablet 40 MG PO (08:57)
[2023-02-16] MEDS: Multivitamins,Therapeutic Tablet 1 TABLET PO (08:57)
[2023-02-16] MEDS: Enoxaparin 40 MG/0.4 ML Syringe SC (08:58)
[2023-02-16] MEDS: Sertraline 100 MG Tablet PO (08:59)
--- NOTE | 2023-02-16 09:07 | NURSING ---
Patient continuing to retain urine. Bladder scan 600cc approximately. Patient explained for need for foely insertion. Patient noted understanding and agreeable for necessity. Patient A&Ox3 this AM. also gave verbal consent. 16 FR [place] Catheter inserted at 0855 02/16/23 By Charge Nurse. Patient Tolerated Catheter insertion overall well. Bag is hanging lower than patient. Stabilized w/ balloon and draining patently.
[2023-02-16 10:00] VITALS: PULSE 66; RESP 16; O2SAT 95
[2023-02-16] MEDS: traMADol 50 MG Tablet PO ×2 (12:31→19:41)
[2023-02-16] MEDS: Ferrous Sulfate 325 MG Tablet PO (14:15)
[2023-02-16] MEDS: Menthol/Lanolin/Calamine/Znox 113 GM Tube 1 APPLIC TOPICAL ×2 (14:16→19:41)
[2023-02-16 15:24] VITALS: BP 128/70; PULSE 93; RESP 16; TEMP 36.6; O2SAT 97
[2023-02-16] MEDS: Mirtazapine 15 MG Tablet 7.5 MG PO (19:43)
[2023-02-16] MEDS: Montelukast 10 MG Tablet PO (19:44)
--- NOTE | 2023-02-16 21:15 | NURSING ---
Addendum entered by Sabra Alejandro 02/17/23 05:19: Dr. Alvarez notified via phone that luz catheter was inserted after bladder scans x 3 reflected high residuals. Original Note: Spoke w/ Dr. Alvarez via phone to question when sutures to scalp should be removed. Sutures were placed in the ED on 02/06. New order received and read back to dc sutures on 02/17.
[2023-02-17] MEDS: levoFLOXacin 750 MG Tablet PO (05:17)
[2023-02-17] MEDS: Levothyroxine 75 MCG Tablet PO (05:17)
[2023-02-17] MEDS: Ensure Plus High Protein 120 ML LIQUID PO ×3 (05:17→16:45)
[2023-02-17] MEDS: Acetaminophen 500 MG Tablet 1000 MG PO ×3 (05:18→22:19)
[2023-02-17] MEDS: Fluticasone/Salmeterol 232-14 Inhaler 1 PUFF INHALATION ×2 (09:43→22:19)
[2023-02-17] MEDS: Multivitamins,Therapeutic Tablet 1 TABLET PO (09:43)
[2023-02-17] MEDS: Menthol/Lanolin/Calamine/Znox 113 GM Tube 1 APPLIC TOPICAL ×2 (09:43→22:20)
[2023-02-17] MEDS: Chlorthalidone 50 MG Tablet 25 MG PO (09:43)
[2023-02-17] MEDS: Fluticasone 0.05% 1 SPRAY NASAL.SRY 2 SPRAY NASAL (09:43)
[2023-02-17] MEDS: Umeclidinium Bromide Inhaler 1 PUFF INHALATION (09:44)
[2023-02-17] MEDS: Enoxaparin 40 MG/0.4 ML Syringe SC (09:44)
[2023-02-17] MEDS: Sertraline 100 MG Tablet PO (09:45)
[2023-02-17] MEDS: Famotidine 20 MG Tablet 40 MG PO (09:46)
--- NOTE | 2023-02-17 10:24 | NURSING ---
Authorization received for MRI, ref #[id number], Auth #[id number]. Per insurance company, patient has $300 copay, patient aware and agrees to continue with MRI.
[2023-02-17] MEDS: Ferrous Sulfate 325 MG Tablet PO (12:12)
--- NOTE | 2023-02-17 13:54 | NURSING ---
at bedside, her and patient updated that patient tested covid positive.
[2023-02-17 14:34] VITALS: BP 126/69; PULSE 96; RESP 15; TEMP 36.8; O2SAT 99
--- NOTE | 2023-02-17 15:43 | NURSING ---
3 Sutures removed to right scalp pt tolerated well.
[2023-02-17] MEDS: traMADol 50 MG Tablet PO (17:50)
[2023-02-17] MEDS: Polyethylene Glycol 3350 17 GM PACKET PO (22:19)
[2023-02-17] MEDS: 0.9% Saline Lock 10 ML Syringe IV (22:19)
[2023-02-17] MEDS: Senna/Docusate Sodium 1 Tablet 2 TABLET PO (22:19)
[2023-02-17] MEDS: Montelukast 10 MG Tablet PO (22:20)
[2023-02-17] MEDS: Mirtazapine 15 MG Tablet 7.5 MG PO (22:20)
[2023-02-18] MEDS: Ensure Plus High Protein 120 ML LIQUID PO ×4 (05:32→21:08)
[2023-02-18] MEDS: Acetaminophen 500 MG Tablet 1000 MG PO ×3 (05:32→21:10)
[2023-02-18] MEDS: traMADol 50 MG Tablet PO ×3 (05:37→21:40)
[2023-02-18] MEDS: Levothyroxine 75 MCG Tablet PO (05:37)
[2023-02-18] MEDS: Multivitamins,Therapeutic Tablet 1 TABLET PO (08:38)
[2023-02-18] MEDS: Sertraline 100 MG Tablet PO (08:38)
[2023-02-18] MEDS: Famotidine 20 MG Tablet 40 MG PO (08:38)
[2023-02-18] MEDS: Chlorthalidone 50 MG Tablet 25 MG PO (08:38)
[2023-02-18] MEDS: Fluticasone/Salmeterol 232-14 Inhaler 1 PUFF INHALATION ×2 (08:39→21:43)
[2023-02-18] MEDS: Umeclidinium Bromide Inhaler 1 PUFF INHALATION (08:39)
[2023-02-18] MEDS: Fluticasone 0.05% 1 SPRAY NASAL.SRY 2 SPRAY NASAL (08:40)
[2023-02-18] MEDS: Enoxaparin 40 MG/0.4 ML Syringe SC (08:40)
[2023-02-18] MEDS: Menthol/Lanolin/Calamine/Znox 113 GM Tube 1 APPLIC TOPICAL ×2 (08:41→21:08)
[2023-02-18] MEDS: Ferrous Sulfate 325 MG Tablet PO (11:34)
[2023-02-18 13:59] VITALS: BMI 25.8
[2023-02-18 14:00] VITALS: BMI 25.8
[2023-02-18 15:45] VITALS: BP 115/70; PULSE 97; RESP 16; TEMP 36.7; O2SAT 98
--- NOTE | 2023-02-18 16:25 | CASEMGMT ---
Social Work BIMS () and PHQ-2 () completed for MDS assessment. Zoraida Michael MSW COW TENDER
[2023-02-18] MEDS: Tamsulosin HCl 0.4 MG Capsule PO (17:08)
[2023-02-18] MEDS: 0.9% Saline Lock 10 ML Syringe IV (17:10)
[2023-02-18] MEDS: Polyethylene Glycol 3350 17 GM PACKET PO (21:09)
[2023-02-18] MEDS: Senna/Docusate Sodium 1 Tablet 2 TABLET PO (21:10)
[2023-02-18] MEDS: Mirtazapine 15 MG Tablet 7.5 MG PO (21:10)
[2023-02-18] MEDS: Montelukast 10 MG Tablet PO (21:10)
[2023-02-18 21:45] VITALS: PULSE 88; RESP 16; O2SAT 92
[2023-02-19 05:40] LABS: Absolute Lymphocyte Count 0.65 X10^3/uL (0.83-4.51); Basophil# 0.05 X10^3/uL; Basophil% 0.6 % (0-1); Eosinophil# 0.26 X10^3/uL; Eosinophils% 3.3 % (0-5); Hematocrit 32.8 % (40-54); Hemoglobin 10.2 g/dL (13.0-16.5); Lymphocyte # 0.65 X10^3/ul (0.83-4.51); Lymphocyte % 8.1 % (19-41); Mean Corp Hgb Conc 31.1 g/dL (32-36); Mean Corpuscular Volume 90.1 fL (80-94); Mean Platelet Vol. 9.4 fl (6.2-12.0); Monocyte# 0.65 X10^3/uL; Monocyte% 8.1 % (0-10); NRBC Flagged by Analyzer 0 % (0-5); Neutrophil # 5.99 X10^3/uL (2.7-7.7); Platelet Count 336 K/mm3 (150-450); RBC Distribution Width CV 14.1 % (11.6-14.6); RBC Distribution Width SD 47.1 fl (35.1-43.9); Red Blood Count 3.64 M/mm3 (4.6-6.2)
[2023-02-19 06:13] LABS: Anion Gap 5 (5-15); BUN 37 mg/dL (7-18); BUN/Creat Ratio 23.7 RATIO (10-20); Chloride 104 mmol/L (98-107); Creatinine, Serum 1.56 mg/dL (0.70-1.30); EST Glomerular Filtration Rate 45 mL/min (>60); Est Glom Filt Rate - Afr Amer 55 mL/min (>60); Glucose 130 mg/dL (74-106); Sodium Level 138 mmol/L (136-145)
[2023-02-19] MEDS: Levothyroxine 75 MCG Tablet PO (06:17)
[2023-02-19] MEDS: Acetaminophen 500 MG Tablet 1000 MG PO ×3 (06:17→21:38)
[2023-02-19] MEDS: Ensure Plus High Protein 120 ML LIQUID PO ×4 (06:17→21:50)
[2023-02-19 06:27] VITALS: PULSE 96; RESP 18; O2SAT 98
[2023-02-19] MEDS: Umeclidinium Bromide Inhaler 1 PUFF INHALATION (08:25)
[2023-02-19] MEDS: Fluticasone 0.05% 1 SPRAY NASAL.SRY 2 SPRAY NASAL (08:25)
[2023-02-19] MEDS: Sertraline 100 MG Tablet PO (08:26)
[2023-02-19] MEDS: Senna/Docusate Sodium 1 Tablet 2 TABLET PO ×2 (08:26→21:38)
[2023-02-19] MEDS: Chlorthalidone 50 MG Tablet 25 MG PO (08:26)
[2023-02-19] MEDS: Multivitamins,Therapeutic Tablet 1 TABLET PO (08:26)
[2023-02-19] MEDS: Famotidine 20 MG Tablet 40 MG PO (08:26)
[2023-02-19] MEDS: Fluticasone/Salmeterol 232-14 Inhaler 1 PUFF INHALATION ×2 (08:27→21:45)
[2023-02-19] MEDS: Enoxaparin 40 MG/0.4 ML Syringe SC (08:27)
--- NOTE | 2023-02-19 08:41 | NURSING ---
Audit Clerks Supervisor Note; MDS for 02/18/2023 Complete
--- NOTE | 2023-02-19 11:11 | CASEMGMT ---
Social Work IDT met with patient, and son Lux, for care plan meeting. Discussed patient's progress in PT/OT/ST/SN. [facility]ated to [facility] with [facility] 02/19 with EDC 02/28. Broached topic of pt not being to return home at the time of EDC. Recommending SNF stay. Educated to financial liability and part B therapies; ability for pt to be skilled again at SNF with change in condition. Family in agreement. MATILDA provided print SNF list in [facility] with quality and resource data via [employer]. MATILDA will continue to follow. BEA DelatorreW
[2023-02-19] MEDS: Tuberculin,Purif.prot.deriv. 50 TU/ML Vial 0.1 ML ID (11:52)
[2023-02-19] MEDS: Menthol/Lanolin/Calamine/Znox 113 GM Tube 1 APPLIC TOPICAL ×2 (11:53→21:36)
[2023-02-19] MEDS: Ferrous Sulfate 325 MG Tablet PO (11:56)
[2023-02-19] MEDS: traMADol 50 MG Tablet PO ×2 (13:00→19:00)
[2023-02-19 14:03] VITALS: BP 113/57; PULSE 94; RESP 14; TEMP 36.8; O2SAT 94
[2023-02-19] MEDS: Tamsulosin HCl 0.4 MG Capsule PO (17:23)
[2023-02-19] MEDS: Polyethylene Glycol 3350 17 GM PACKET PO (21:37)
[2023-02-19] MEDS: Montelukast 10 MG Tablet PO (21:38)
[2023-02-19] MEDS: Mirtazapine 15 MG Tablet 7.5 MG PO (21:38)
[2023-02-20] MEDS: traMADol 50 MG Tablet PO ×3 (02:07→21:43)
[2023-02-20] MEDS: Acetaminophen 500 MG Tablet 1000 MG PO ×3 (06:29→21:46)
[2023-02-20] MEDS: Ensure Plus High Protein 120 ML LIQUID PO ×3 (06:29→17:57)
[2023-02-20] MEDS: Levothyroxine 75 MCG Tablet PO (06:29)
[2023-02-20 06:32] LABS: Anion Gap 7 (5-15); BUN 40 mg/dL (7-18); BUN/Creat Ratio 27.2 RATIO (10-20); Calcium,Total 8.8 mg/dL (8.5-10.1); Chloride 104 mmol/L (98-107); Creatinine, Serum 1.47 mg/dL (0.70-1.30); EST Glomerular Filtration Rate 49 mL/min (>60); Est Glom Filt Rate - Afr Amer 59 mL/min (>60); Estimated Creatinine Clearance 36.19 ml/min; Glucose 120 mg/dL (74-106); Potassium 3.8 mmol/L (3.5-5.1); Sodium Level 138 mmol/L (136-145)
[2023-02-20] MEDS: Famotidine 20 MG Tablet 40 MG PO (09:25)
[2023-02-20] MEDS: Chlorthalidone 50 MG Tablet 25 MG PO (09:26)
[2023-02-20] MEDS: Sertraline 100 MG Tablet PO (09:26)
[2023-02-20] MEDS: Multivitamins,Therapeutic Tablet 1 TABLET PO (09:26)
[2023-02-20] MEDS: Fluticasone 0.05% 1 SPRAY NASAL.SRY 2 SPRAY NASAL (09:27)
[2023-02-20] MEDS: Fluticasone/Salmeterol 232-14 Inhaler 1 PUFF INHALATION ×2 (09:27→21:45)
[2023-02-20] MEDS: Menthol/Lanolin/Calamine/Znox 113 GM Tube 1 APPLIC TOPICAL ×2 (09:28→21:44)
[2023-02-20] MEDS: Enoxaparin 40 MG/0.4 ML Syringe SC (09:29)
[2023-02-20] MEDS: Umeclidinium Bromide Inhaler 1 PUFF INHALATION (09:30)
[2023-02-20] MEDS: Senna/Docusate Sodium 1 Tablet 2 TABLET PO ×2 (09:31→21:46)
[2023-02-20] MEDS: Ferrous Sulfate 325 MG Tablet PO (12:50)
--- NOTE | 2023-02-20 14:31 | CHAPLAIN ---
Type of Pastoral Visit ___ Initial Visit _x__ Follow-up Visit ___ On-call Visit ___ General Patient Visit ___ Spiritual Assessment ___ Family Conference ___ Bereavement ___ Rapid Response ___ Code Blue ___ Other (describe below) Pastoral Care Referral From _x__ Patient ___ Family ___ Nurse ___ Physician ___ Parts Counter Clerk ___ Technical Support Specialist ___ Other (describe below) Sacrament/Intervention _x__ Active listening ___ Anointing ___ Congregational ___ Bereavement ___ Communion _x__ Galina exploration ___ _x__ Life review _x__ Prayer ___ Reconciliation ___ Sacrament of Sick ___ Supportive presence ___ Wedding ___ Other (describe below) Pastoral Comments patient has been seen before in various parts of this hospital; follow up to check on progress; pt maintains a positive attitude and attributes that to his galina in God and to the many friends who are praying for him; spouse is with him in the room; spouse also interjets her thoughts; pt believes he is making some progress; discussion also includes what the future holds for the [facility] in counts include [facility] beds at [facility]; prayer and presence welcomed;
--- NOTE | 2023-02-20 14:41 | NURSING ---
Updated patient and that staff and patient tested covid positive.
--- NOTE | 2023-02-20 15:41 | NURSING ---
brought left hearing aid into room, pt has in place in Left ear, cup at bedside marked for CONDON at HS
[2023-02-20 16:00] VITALS: BP 97/57; PULSE 88; RESP 16; TEMP 36.6; O2SAT 97
[2023-02-20] MEDS: Tamsulosin HCl 0.4 MG Capsule PO (17:52)
[2023-02-20 20:01] VITALS: PULSE 88; RESP 18; O2SAT 96
[2023-02-20] MEDS: Polyethylene Glycol 3350 17 GM PACKET PO (21:45)
[2023-02-20] MEDS: Mirtazapine 15 MG Tablet 7.5 MG PO (21:45)
[2023-02-20] MEDS: Montelukast 10 MG Tablet PO (21:47)
[2023-02-21] MEDS: Acetaminophen 500 MG Tablet 1000 MG PO ×3 (05:39→21:43)
[2023-02-21] MEDS: Levothyroxine 75 MCG Tablet PO (05:40)
[2023-02-21] MEDS: Ensure Plus High Protein 120 ML LIQUID PO ×4 (05:40→21:47)
[2023-02-21] MEDS: Enoxaparin 40 MG/0.4 ML Syringe SC (08:08)
[2023-02-21] MEDS: Famotidine 20 MG Tablet 40 MG PO (08:08)
[2023-02-21] MEDS: Sertraline 100 MG Tablet PO (08:08)
[2023-02-21] MEDS: Umeclidinium Bromide Inhaler 1 PUFF INHALATION (08:09)
[2023-02-21] MEDS: Multivitamins,Therapeutic Tablet 1 TABLET PO (08:09)
[2023-02-21] MEDS: Fluticasone/Salmeterol 232-14 Inhaler 1 PUFF INHALATION ×2 (08:10→21:44)
[2023-02-21] MEDS: Menthol/Lanolin/Calamine/Znox 113 GM Tube 1 APPLIC TOPICAL ×2 (08:11→18:06)
[2023-02-21] MEDS: Fluticasone 0.05% 1 SPRAY NASAL.SRY 2 SPRAY NASAL (08:11)
[2023-02-21] MEDS: Chlorthalidone 50 MG Tablet 25 MG PO (08:12)
[2023-02-21] MEDS: traMADol 50 MG Tablet PO (08:18)
[2023-02-21] MEDS: Ferrous Sulfate 325 MG Tablet PO (12:30)
[2023-02-21 13:31] VITALS: BP 101/56; PULSE 86; RESP 16; TEMP 36.4; O2SAT 98
--- NOTE | 2023-02-21 13:58 | NURSING ---
Pt to [facility] appt todat. Conover removed to R hip, cortisone inj to R knee. F/U with Dr Andrews in 4 weeks 03-21-23 @ 1:30pm
[2023-02-21] MEDS: Tamsulosin HCl 0.4 MG Capsule PO (18:02)
[2023-02-21] MEDS: Mirtazapine 15 MG Tablet 7.5 MG PO (21:41)
[2023-02-21] MEDS: Montelukast 10 MG Tablet PO (21:42)
[2023-02-21] MEDS: Senna/Docusate Sodium 1 Tablet 2 TABLET PO (21:42)
[2023-02-21] MEDS: Polyethylene Glycol 3350 17 GM PACKET PO (21:43)
[2023-02-21 23:45] VITALS: PULSE 94; RESP 16; O2SAT 94
[2023-02-22] MEDS: Ensure Plus High Protein 120 ML LIQUID PO ×2 (05:24→12:11)
[2023-02-22] MEDS: Acetaminophen 500 MG Tablet 1000 MG PO ×3 (05:24→20:17)
[2023-02-22] MEDS: Levothyroxine 75 MCG Tablet PO (05:24)
[2023-02-22 05:35] VITALS: PULSE 86; RESP 14; O2SAT 96
[2023-02-22] MEDS: Senna/Docusate Sodium 1 Tablet 2 TABLET PO (09:54)
[2023-02-22] MEDS: Enoxaparin 40 MG/0.4 ML Syringe SC (09:54)
[2023-02-22] MEDS: Famotidine 20 MG Tablet 40 MG PO (09:54)
[2023-02-22] MEDS: Multivitamins,Therapeutic Tablet 1 TABLET PO (09:55)
[2023-02-22] MEDS: Sertraline 100 MG Tablet PO (09:55)
[2023-02-22] MEDS: Menthol/Lanolin/Calamine/Znox 113 GM Tube 1 APPLIC TOPICAL ×2 (09:55→20:18)
[2023-02-22] MEDS: Polyethylene Glycol 3350 17 GM PACKET PO (09:55)
[2023-02-22] MEDS: Fluticasone/Salmeterol 232-14 Inhaler 1 PUFF INHALATION ×2 (09:55→20:19)
[2023-02-22] MEDS: Umeclidinium Bromide Inhaler 1 PUFF INHALATION (09:56)
[2023-02-22] MEDS: Chlorthalidone 50 MG Tablet 25 MG PO (09:57)
[2023-02-22] MEDS: Fluticasone 0.05% 1 SPRAY NASAL.SRY 2 SPRAY NASAL (09:58)
[2023-02-22] MEDS: Ferrous Sulfate 325 MG Tablet PO (12:11)
[2023-02-22 15:11] VITALS: BP 114/63; PULSE 97; RESP 16; TEMP 36.3; O2SAT 97
[2023-02-22] MEDS: Tamsulosin HCl 0.4 MG Capsule PO (17:40)
[2023-02-22] MEDS: Mirtazapine 15 MG Tablet 7.5 MG PO (20:16)
[2023-02-22] MEDS: Montelukast 10 MG Tablet PO (20:18)
[2023-02-23] MEDS: Ensure Plus High Protein 120 ML LIQUID PO ×3 (06:12→16:33)
[2023-02-23] MEDS: Acetaminophen 500 MG Tablet 1000 MG PO ×3 (06:13→22:11)
[2023-02-23] MEDS: Levothyroxine 75 MCG Tablet PO (06:14)
[2023-02-23 08:53] VITALS: BP 112/58; PULSE 94; RESP 16; TEMP 36.5; O2SAT 94
[2023-02-23] MEDS: Fluticasone/Salmeterol 232-14 Inhaler 1 PUFF INHALATION ×2 (08:55→22:11)
[2023-02-23] MEDS: Enoxaparin 40 MG/0.4 ML Syringe SC (08:56)
[2023-02-23] MEDS: Chlorthalidone 50 MG Tablet 25 MG PO (08:56)
[2023-02-23] MEDS: Famotidine 20 MG Tablet 40 MG PO (08:57)
[2023-02-23] MEDS: Senna/Docusate Sodium 1 Tablet 2 TABLET PO ×2 (08:58→22:12)
[2023-02-23] MEDS: Sertraline 100 MG Tablet PO (08:58)
[2023-02-23] MEDS: Multivitamins,Therapeutic Tablet 1 TABLET PO (08:58)
[2023-02-23] MEDS: Fluticasone 0.05% 1 SPRAY NASAL.SRY 2 SPRAY NASAL (08:59)
[2023-02-23] MEDS: Menthol/Lanolin/Calamine/Znox 113 GM Tube 1 APPLIC TOPICAL ×2 (08:59→22:13)
[2023-02-23] MEDS: Umeclidinium Bromide Inhaler 1 PUFF INHALATION (09:00)
[2023-02-23] MEDS: Ferrous Sulfate 325 MG Tablet PO (11:51)
[2023-02-23] MEDS: Tamsulosin HCl 0.4 MG Capsule PO (16:33)
[2023-02-23] MEDS: Montelukast 10 MG Tablet PO (22:11)
[2023-02-23] MEDS: Mirtazapine 15 MG Tablet 7.5 MG PO (22:12)
[2023-02-24] MEDS: Ensure Plus High Protein 120 ML LIQUID PO (05:41)
[2023-02-24] MEDS: Levothyroxine 75 MCG Tablet PO (05:42)
[2023-02-24] MEDS: Acetaminophen 500 MG Tablet 1000 MG PO ×3 (05:42→20:48)
[2023-02-24 09:47] VITALS: BP 145/86; PULSE 84; RESP 16; TEMP 36.3; O2SAT 98
[2023-02-24] MEDS: Multivitamins,Therapeutic Tablet 1 TABLET PO (09:49)
[2023-02-24] MEDS: Enoxaparin 40 MG/0.4 ML Syringe SC (09:50)
[2023-02-24] MEDS: Sertraline 100 MG Tablet PO (09:51)
[2023-02-24] MEDS: Famotidine 20 MG Tablet 40 MG PO (09:51)
[2023-02-24] MEDS: Fluticasone 0.05% 1 SPRAY NASAL.SRY 2 SPRAY NASAL (09:52)
[2023-02-24] MEDS: Fluticasone/Salmeterol 232-14 Inhaler 1 PUFF INHALATION ×2 (09:52→20:50)
[2023-02-24] MEDS: Umeclidinium Bromide Inhaler 1 PUFF INHALATION (09:53)
[2023-02-24] MEDS: Menthol/Lanolin/Calamine/Znox 113 GM Tube 1 APPLIC TOPICAL ×2 (09:55→20:49)
[2023-02-24] MEDS: Chlorthalidone 50 MG Tablet 25 MG PO (10:38)
--- NOTE | 2023-02-24 12:01 | MDS.RN ---
Information for the mds was obtained from review of the clinical record, interview of resident, staff, and direct observation of resident's care.
[2023-02-24] MEDS: Ferrous Sulfate 325 MG Tablet PO (13:07)
--- NOTE | 2023-02-24 15:14 | CASEMGMT ---
Social Work SW phoned to follow up on SNF choices since insurance update is 02/26. requested another list to review and prefers via text message. SW sent link via [employer]. SW revisited OOP cost for SNF and confirmed she can pay privately. SW will continue to follow. BEA DelatorreW
[2023-02-24] MEDS: Tamsulosin HCl 0.4 MG Capsule PO (17:14)
[2023-02-24] MEDS: Montelukast 10 MG Tablet PO (20:48)
[2023-02-24] MEDS: Mirtazapine 15 MG Tablet 7.5 MG PO (20:48)
[2023-02-25] MEDS: Levothyroxine 75 MCG Tablet PO (06:18)
[2023-02-25] MEDS: Acetaminophen 500 MG Tablet 1000 MG PO ×3 (06:19→20:48)
[2023-02-25 06:43] VITALS: BMI 25.6
[2023-02-25] MEDS: Fluticasone/Salmeterol 232-14 Inhaler 1 PUFF INHALATION ×2 (08:08→20:47)
[2023-02-25] MEDS: Umeclidinium Bromide Inhaler 1 PUFF INHALATION (08:08)
[2023-02-25] MEDS: Famotidine 20 MG Tablet 40 MG PO (08:09)
[2023-02-25] MEDS: Chlorthalidone 50 MG Tablet 25 MG PO (08:09)
[2023-02-25] MEDS: Sertraline 100 MG Tablet PO (08:09)
[2023-02-25] MEDS: Fluticasone 0.05% 1 SPRAY NASAL.SRY 2 SPRAY NASAL (08:09)
[2023-02-25] MEDS: Multivitamins,Therapeutic Tablet 1 TABLET PO (08:09)
[2023-02-25] MEDS: Menthol/Lanolin/Calamine/Znox 113 GM Tube 1 APPLIC TOPICAL ×2 (08:10→20:47)
[2023-02-25] MEDS: Enoxaparin 40 MG/0.4 ML Syringe SC (08:10)
[2023-02-25] MEDS: Ferrous Sulfate 325 MG Tablet PO (11:45)
[2023-02-25 16:00] VITALS: BP 97/63; PULSE 90; RESP 16; TEMP 36.6; O2SAT 96
--- NOTE | 2023-02-25 16:21 | CASEMGMT ---
Social Work SW phoned to follow up on SNF choices. stated she spoke with insurance reviewer and relayed optimism with continued stay d/t pt progressing well. SW agreed to pt progressing but reiterated pt's recovery may take longer and insurance will issue DC date at some time, and pt may not be ready to DC home at that time. Recommending continuing with alternative DC planning. expressed understanding and prefers [facility]. SW placed referral via [employer]. Will await outcome. Zoraida Michael, ANIMAL PHYSIOLOGIST DIRECTOR OF INSTRUCTION
[2023-02-25] MEDS: Tamsulosin HCl 0.4 MG Capsule PO (17:25)
[2023-02-25] MEDS: Montelukast 10 MG Tablet PO (20:47)
[2023-02-25] MEDS: Mirtazapine 15 MG Tablet PO (20:47)
[2023-02-25] MEDS: NYSTATIN 500,000 UNIT/5 ML UDC 500000 UNIT PO (20:47)
[2023-02-26] MEDS: traMADol 50 MG Tablet PO ×3 (01:44→21:58)
[2023-02-26 05:44] LABS: Absolute Lymphocyte Count 0.79 X10^3/uL (0.83-4.51); Absolute Neutrophil Count 8.8 X10^3/uL (2.0-7.7); Basophil# 0.01 X10^3/uL; Basophil% 0.1 % (0-1); Eosinophil# 0.03 X10^3/uL; Eosinophils% 0.3 % (0-5); Hematocrit 33.4 % (40-54); Hemoglobin 10.7 g/dL (13.0-16.5); Lymphocyte # 0.79 X10^3/ul (0.83-4.51); Lymphocyte % 7.4 % (19-41); Mean Corpuscular Hgb 28.6 pg (27.0-32.0); Mean Corpuscular Volume 89.3 fL (80-94); Mean Platelet Vol. 9.3 fl (6.2-12.0); Monocyte# 0.91 X10^3/uL; Monocyte% 8.5 % (0-10); NRBC Flagged by Analyzer 0 % (0-5); Neutrophil # 8.75 X10^3/uL (2.7-7.7); Neutrophil % 81.7 % (47-70); Platelet Count 413 K/mm3 (150-450); RBC Distribution Width CV 14.2 % (11.6-14.6); RBC Distribution Width SD 46.4 fl (35.1-43.9); Red Blood Count 3.74 M/mm3 (4.6-6.2); White Blood Count 10.7 K/mm3 (4.4-11.0)
[2023-02-26] MEDS: NYSTATIN 500,000 UNIT/5 ML UDC 500000 UNIT PO ×4 (06:04→21:15)
[2023-02-26] MEDS: Levothyroxine 75 MCG Tablet PO (06:04)
[2023-02-26] MEDS: Acetaminophen 500 MG Tablet 1000 MG PO ×3 (06:04→21:15)
[2023-02-26 06:34] LABS: Anion Gap 5 (5-15); BUN 58 mg/dL (7-18); Calcium,Total 8.6 mg/dL (8.5-10.1); Chloride 105 mmol/L (98-107); Creatinine, Serum 1.45 mg/dL (0.70-1.30); EST Glomerular Filtration Rate 49 mL/min (>60); Est Glom Filt Rate - Afr Amer 60 mL/min (>60); Estimated Creatinine Clearance 36.69 ml/min; Glucose 129 mg/dL (74-106); Potassium 4.1 mmol/L (3.5-5.1); Sodium Level 137 mmol/L (136-145)
[2023-02-26] MEDS: Fluticasone/Salmeterol 232-14 Inhaler 1 PUFF INHALATION ×2 (08:50→21:14)
[2023-02-26] MEDS: Multivitamins,Therapeutic Tablet 1 TABLET PO (08:53)
[2023-02-26] MEDS: Umeclidinium Bromide Inhaler 1 PUFF INHALATION (08:54)
[2023-02-26] MEDS: Chlorthalidone 50 MG Tablet 25 MG PO (08:54)
[2023-02-26] MEDS: Sertraline 100 MG Tablet PO (08:54)
[2023-02-26] MEDS: Famotidine 20 MG Tablet 40 MG PO (08:54)
[2023-02-26] MEDS: Fluticasone 0.05% 1 SPRAY NASAL.SRY 2 SPRAY NASAL (08:55)
[2023-02-26] MEDS: Enoxaparin 40 MG/0.4 ML Syringe SC (08:56)
[2023-02-26] MEDS: Menthol/Lanolin/Calamine/Znox 113 GM Tube 1 APPLIC TOPICAL ×2 (08:56→21:14)
[2023-02-26] MEDS: Miconazole Nitrate 43 GM Bottle 1 APPLIC TOPICAL ×2 (10:48→21:14)
--- NOTE | 2023-02-26 11:35 | ST.MBS ---
Modified Barium Swallow Patient Information Study Date: 02/26/23 Study Time: 12:00 Direct Billable Minutes: 102 Total Minutes procedure & reportin Diagnosis: Closed head injury S09.90XA, GERD K21.9 Referring Physician: Bon Alvarez Chi Reason for Referral: Objectively assess swallow function, assess risk for aspiration, and determine recommendations for least restrictive diet textures and compensatory strategies to improve safety of swallow. Medical History: London Yip is a 82-year-old male who presented to [facility] ED 02/06/2023 with fall, head injury. Fell, hit head on concrete, no loss of consciousness. Right elbow skin tear, occipital laceration. CT head okay. X-ray showed right hip fracture. Scalp laceration repaired. 02/06/2023 Admitted to Hospital. 02/07/2023 Dr. Andrews performed percutaneous screw fixation right femoral neck fracture. 02/10/2023 Pain, constipated, poor appetite. Bowel regimen added. Chest X-ray showed infiltrate, treat with Levaquin. 02/11/2023 Admitted to TCU with debility, here for rehabilitation, strengthening, prior to discharge home with . Speech therapy was ordered following difficulty with swallowing pills. He has been followed for oral phase dysphagia secondary to teeth and jaw decay as a child due to a medication used to treat a disease. Dentures since his early 20s. He was referred for MBSS due to occ coughing with oral intake and wheezes in his lung sounds. He is currently on soft and bite size textures / thin liquids and is also being followed by ST for mild cognitive impairment. Current Diet Ordered: Soft and bite size textures / Thin liquids Dentition: Upper Dentures and Lower Dentures Mental Status: Impaired (Mild cognitive impairment) Respiratory Status: Oxygenating on Room Air Penetration-Aspiration Scale Penetration-Aspiration Scale: OBJECTIVE ASSESSMENT OF SWALLOW FUNCTION (QUANTITATIVE ? PER TRIAL): PENETRATION / ASPIRATION SCALE (OVIEDO): 1 = does not enter airway 2 = enters airway/above vocal folds/ejected 3 = enters airway/above vocal folds/not ejected 4 = enters airway/contacts vocal folds/ejected 5 = enters airway/contacts vocal folds/not ejected 6 = enters airway/below vocal folds/ejected 7 = enters airway/below vocal folds/not ejected despite effort 8 = enters airway/below vocal folds/no effort VIDEOFLOROSCOPIC SCALE SCORE (OVIEDO): Grade I = aspiration of material that has penetrated into the laryngeal vestibule, intact cough reflex Grade II = aspiration < 10 % of the bolus, intact cough reflex Grade III = aspiration of < 10 % of the bolus, reduced cough reflex or aspiration of > 10 % of the bolus, intact cough reflex Grade IV = aspiration of > 10 % of the bolus, reduced cough reflex Penetration-Aspiration Scale Score Thin Liquid via teaspoon: Result: 5= enters airways/contacts vocal folds/not ejected Thin Liquid via teaspoon Trial 2: Result: 2= enter airway/above vocal folds/ejected Comment: [employer] cued cough and re-swallow to clear a majority of contrast remaining in the laryngeal vestibule from first trial. Thin liquid via small single sip from cup: Result: 2= enter airway/above vocal folds/ejected [place]/mildly thick liquid via small single sip by cup: Result: 5= enters airways/contacts vocal folds/not ejected Pudding via tsp with esophageal screen: Result: 1= does not enter airway 1/2 Cookie: Result: 1= does not enter airway Thin Liquid via single sip from straw: Result: 2= enter airway/above vocal folds/ejected Thin liquid via small single sip from cup Trial 2: Result: 3= enters airways/above vocal folds/not ejected Thin liquid via small single sip from cup with effortful swallow: Result: 2= enter airway/above vocal folds/ejected Oral Phase Labial Seal: No Labial Escape Tongue Control During Bolus Hold: Posterior escape of less than half of bolus Bolus Preparation/Mastication: Disorganized chewing/mashing with solid pieces of bolus unchewed Bolus Transport/Lingual Motion: Delayed initiation of tongue motion Oral Residue: Majority of bolus remaining (piecemeal deglutition of cookie) Pharyngeal Phase Initiation of Pharyngeal Swallow: Bolus head in pyriforms Soft Palate Elevation: Trace column of contrast/air between soft palate and pharyngeal wall Laryngeal Elevation: Partial superior movement thyroid cart/partial apprx aryt-epig petiole Anterior Hyoid Excursion: Partial anterior movement Epiglottic Movement: Complete inversion Laryngeal Vestibule Closure at Height of Swallow: Incomplete; narrow column of air/contrast in laryngeal vestibule Pharyngeal Stripping Wave: Present - diminished Pharyngoesophageal Segment Opening: Parital distension and partial duration; parital obstruction of flow Tongue Base Retraction: Wide column of contrast between tongue base & post. pharyngeal wall Pharyngeal Residue: Collection of residue within or on pharyngeal structures Esophageal Phase Esophageal Clearance: Esophageal retention (trace retention in upper esophageal sphincter) Diagnosis/Impression Diagnosis: Mild-moderate oropharyngeal dysphagia (R13.12) Impression: The oral phase is primarily marked by... -Decreased bolus control of thin liquids with posterior loss of first trial to the laryngeal vestibule, increasing risk for aspiration during the swallow. -Decreased and prolonged mastication of cookie with small pieces appearing un-chewed. Piecemeal deglutition of cookie. The pharyngeal phase is primarily marked by... -Delayed swallow onset. -Decreased airway closure during the swallow, mostly due to decreased laryngeal elevation, but also mildly decreased anterior hyoid excursion. -Decreased pharyngeal motility, most notable with pudding and cookie, due to decreased tongue base retraction, pharyngeal stripping wave, and UES opening/duration. Moderate pharyngeal residue of pudding and cookie after the swallow, which was best cleared with use of liquid wash. -Deep laryngeal penetration to the vocal folds with thin by tsp and nectar/mildly thick by cup with no reflexive cough. No aspiration was observed during the study. Recommendations Diet: Mechanical Soft Textures (Soft and Bite Size Textures (IDDSI Level 6)) and Thin Liquids Comment: Encourage intermittent cough and re-swallow Compensatory Strategies: Small Bites, Small Sips (effortful swallows w/ sips), Slow Rate (Sips one at a time), Alternate bites/solids and sips/liquids, Sitting upright and Remain sitting upright for 30 minutes after PO intake Supervision: Distant Supervision Recommend Repeat Modified Barium Swallow: TBD Need for Skilled Speech Therapy Services: Yes Comment: -Train in recommended diet textures and aspiration precautions to ensure safe oral intake. -Train in oropharyngeal exercise program to promote improved bolus control, tongue base retraction, pharyngeal contraction, and laryngeal elevation (lingual resistance, Glo, effortful swallow, CTAR). Education Completed: 1. Described result of evaluation., 2. Pt understands evaluation & agrees with goals and treatment plan. and 7. Pt requires further education on strategies & risks. Status Active ST Patient: Active Contact Information [facility] Speech Therapy:: Amparo Schmidt M.A. [facility] Speech-Language Pathologist [facility] [address] [place] [address] mary [phone]
[2023-02-26] MEDS: Ferrous Sulfate 325 MG Tablet PO (13:10)
--- NOTE | 2023-02-26 14:35 | CASEMGMT ---
Social Work SW phoned to update on [facility] acceptance and insurance NRD 03/04 with EDC 03/07. appreciative. paula jamil, [employer]
[2023-02-26 14:58] VITALS: BP 102/60; PULSE 86; RESP 16; TEMP 36.5; O2SAT 96
[2023-02-26] MEDS: Tamsulosin HCl 0.4 MG Capsule PO (16:56)
--- NOTE | 2023-02-26 19:45 | RAD_ITS ---
STUDY: X-RAY CHEST REASON FOR EXAM: Male, 82 years old. Aspiration. TECHNIQUE: PA and lateral views of the chest. COMPARISON: 02/11/2023. 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 There are multiple calcified pleural plaques, unchanged. The lungs are clear and expanded. No pleural effusion or pneumothorax. There is borderline cardiomegaly. Normal mediastinum and mamadou. Normal visualized pulmonary arteries. There is atherosclerotic calcification of the aortic arch with tortuosity. There are diffuse degenerative changes of the visualized thoracic spine. There is degenerative osteoarthritis of the bilateral shoulders. There is no demonstrated abnormality of the visualized soft tissue structures of the upper abdomen. RAD/Chest PA and Lateral IMPRESSION: No acute cardiopulmonary disease, stable study in the interval. Electronically Signed: Mariela Calloway MD at 20:43 EDT ,
[2023-02-26] MEDS: MELATONIN 10 MG TABLET PO (21:15)
[2023-02-26] MEDS: Montelukast 10 MG Tablet PO (21:15)
[2023-02-26] MEDS: Mirtazapine 15 MG Tablet PO (21:15)
[2023-02-27] MEDS: Acetaminophen 500 MG Tablet 1000 MG PO ×3 (05:24→21:31)
[2023-02-27] MEDS: Levothyroxine 75 MCG Tablet PO (05:24)
[2023-02-27] MEDS: NYSTATIN 500,000 UNIT/5 ML UDC 500000 UNIT PO ×4 (05:24→21:30)
--- NOTE | 2023-02-27 06:46 | NURSING ---
Bladder scanned this AM for 567cc urinated 240cc post void 336cc Pt stated that he did not feel that he had to pee. This nurse held urinal for pt and encouraged him to urinate, pt straining while urinating in spurts About an hour later he was encouraged to urinate in the urinal again and post void was 18cc
[2023-02-27 08:28] VITALS: BP 109/59; PULSE 84; RESP 16; TEMP 36.5; O2SAT 95
[2023-02-27] MEDS: Menthol/Lanolin/Calamine/Znox 113 GM Tube 1 APPLIC TOPICAL ×2 (08:31→21:28)
[2023-02-27] MEDS: Miconazole Nitrate 43 GM Bottle 1 APPLIC TOPICAL ×2 (08:31→21:29)
[2023-02-27] MEDS: Multivitamins,Therapeutic Tablet 1 TABLET PO (08:31)
[2023-02-27] MEDS: Fluticasone/Salmeterol 232-14 Inhaler 1 PUFF INHALATION ×2 (08:32→21:30)
[2023-02-27] MEDS: Fluticasone 0.05% 1 SPRAY NASAL.SRY 2 SPRAY NASAL (08:32)
[2023-02-27] MEDS: Chlorthalidone 50 MG Tablet 25 MG PO (08:32)
[2023-02-27] MEDS: Umeclidinium Bromide Inhaler 1 PUFF INHALATION (08:32)
[2023-02-27] MEDS: Enoxaparin 40 MG/0.4 ML Syringe SC (08:32)
[2023-02-27] MEDS: Famotidine 20 MG Tablet 40 MG PO (08:32)
[2023-02-27] MEDS: Sertraline 100 MG Tablet PO (08:33)
[2023-02-27] MEDS: Ferrous Sulfate 325 MG Tablet PO (11:30)
[2023-02-27] MEDS: Tamsulosin HCl 0.4 MG Capsule PO (16:08)
[2023-02-27] MEDS: traMADol 50 MG Tablet PO (20:21)
[2023-02-27 20:30] VITALS: PULSE 90; RESP 16; O2SAT 96
[2023-02-27] MEDS: Montelukast 10 MG Tablet PO (21:31)
[2023-02-27] MEDS: MELATONIN 10 MG TABLET PO (21:31)
[2023-02-27] MEDS: Mirtazapine 15 MG Tablet PO (21:31)
[2023-02-28] MEDS: Levothyroxine 75 MCG Tablet PO (06:08)
[2023-02-28] MEDS: NYSTATIN 500,000 UNIT/5 ML UDC 500000 UNIT PO ×4 (06:08→20:58)
[2023-02-28] MEDS: Acetaminophen 500 MG Tablet 1000 MG PO ×3 (06:08→20:58)
[2023-02-28] MEDS: Famotidine 20 MG Tablet 40 MG PO (08:53)
[2023-02-28] MEDS: Chlorthalidone 50 MG Tablet 25 MG PO (08:53)
[2023-02-28] MEDS: Enoxaparin 40 MG/0.4 ML Syringe SC (08:53)
[2023-02-28] MEDS: Multivitamins,Therapeutic Tablet 1 TABLET PO (08:53)
[2023-02-28] MEDS: Sertraline 100 MG Tablet PO (08:53)
[2023-02-28] MEDS: Miconazole Nitrate 43 GM Bottle 1 APPLIC TOPICAL ×2 (08:54→20:57)
[2023-02-28] MEDS: Fluticasone 0.05% 1 SPRAY NASAL.SRY 2 SPRAY NASAL (08:54)
[2023-02-28] MEDS: Umeclidinium Bromide Inhaler 1 PUFF INHALATION (08:55)
[2023-02-28] MEDS: Fluticasone/Salmeterol 232-14 Inhaler 1 PUFF INHALATION ×2 (08:56→20:58)
[2023-02-28] MEDS: Menthol/Lanolin/Calamine/Znox 113 GM Tube 1 APPLIC TOPICAL ×2 (08:56→20:57)
[2023-02-28 09:01] VITALS: BP 107/55; PULSE 87; RESP 18; TEMP 36.4; O2SAT 95
[2023-02-28] MEDS: traMADol 50 MG Tablet PO (09:08)
[2023-02-28] MEDS: Ferrous Sulfate 325 MG Tablet PO (11:30)
--- NOTE | 2023-02-28 11:32 | WOUNDNOTE ---
wound photo: right medial buttock
[2023-02-28] MEDS: Tamsulosin HCl 0.4 MG Capsule PO (16:31)
[2023-02-28] MEDS: MELATONIN 10 MG TABLET PO (20:58)
[2023-02-28] MEDS: Mirtazapine 15 MG Tablet PO (20:58)
[2023-02-28] MEDS: Montelukast 10 MG Tablet PO (20:59)
[2023-02-28 22:00] VITALS: PULSE 100; RESP 14; O2SAT 98
[2023-03-01] MEDS: Acetaminophen 500 MG Tablet 1000 MG PO ×3 (05:52→21:45)
[2023-03-01] MEDS: Levothyroxine 75 MCG Tablet PO (05:52)
[2023-03-01] MEDS: NYSTATIN 500,000 UNIT/5 ML UDC 500000 UNIT PO ×4 (05:52→21:44)
[2023-03-01 06:15] VITALS: PULSE 89; RESP 16; O2SAT 96
[2023-03-01] MEDS: Famotidine 20 MG Tablet 40 MG PO (09:10)
[2023-03-01] MEDS: Enoxaparin 40 MG/0.4 ML Syringe SC (09:11)
[2023-03-01] MEDS: Chlorthalidone 50 MG Tablet 25 MG PO (09:11)
[2023-03-01] MEDS: Umeclidinium Bromide Inhaler 1 PUFF INHALATION (09:11)
[2023-03-01] MEDS: Sertraline 100 MG Tablet PO (09:11)
[2023-03-01] MEDS: Multivitamins,Therapeutic Tablet 1 TABLET PO (09:11)
[2023-03-01] MEDS: Fluticasone/Salmeterol 232-14 Inhaler 1 PUFF INHALATION ×2 (09:11→21:42)
[2023-03-01] MEDS: Fluticasone 0.05% 1 SPRAY NASAL.SRY 2 SPRAY NASAL (09:11)
[2023-03-01] MEDS: Miconazole Nitrate 43 GM Bottle 1 APPLIC TOPICAL ×2 (09:12→21:41)
[2023-03-01] MEDS: Menthol/Lanolin/Calamine/Znox 113 GM Tube 1 APPLIC TOPICAL ×2 (09:12→21:41)
[2023-03-01] MEDS: Ferrous Sulfate 325 MG Tablet PO (12:50)
--- NOTE | 2023-03-01 13:25 | NURSING ---
and Family updated on positive covid pt.
[2023-03-01 15:15] VITALS: BP 102/54; PULSE 91; RESP 16; TEMP 36.6; O2SAT 97
[2023-03-01] MEDS: Tamsulosin HCl 0.4 MG Capsule PO (17:18)
[2023-03-01] MEDS: MELATONIN 10 MG TABLET PO (21:43)
[2023-03-01] MEDS: Mirtazapine 15 MG Tablet PO (21:44)
[2023-03-01] MEDS: Montelukast 10 MG Tablet PO (21:45)
[2023-03-02] MEDS: NYSTATIN 500,000 UNIT/5 ML UDC 500000 UNIT PO ×4 (05:18→22:18)
[2023-03-02] MEDS: Acetaminophen 500 MG Tablet 1000 MG PO ×3 (05:19→22:19)
[2023-03-02] MEDS: Levothyroxine 75 MCG Tablet PO (05:19)
[2023-03-02] MEDS: Senna/Docusate Sodium 1 Tablet 2 TABLET PO ×2 (05:54→22:20)
[2023-03-02] MEDS: Sertraline 100 MG Tablet PO (09:25)
[2023-03-02] MEDS: Multivitamins,Therapeutic Tablet 1 TABLET PO (09:25)
[2023-03-02] MEDS: Umeclidinium Bromide Inhaler 1 PUFF INHALATION (09:25)
[2023-03-02] MEDS: Enoxaparin 40 MG/0.4 ML Syringe SC (09:25)
[2023-03-02] MEDS: Chlorthalidone 50 MG Tablet 25 MG PO (09:25)
[2023-03-02] MEDS: Famotidine 20 MG Tablet 40 MG PO (09:26)
[2023-03-02] MEDS: Fluticasone/Salmeterol 232-14 Inhaler 1 PUFF INHALATION ×2 (09:26→22:17)
[2023-03-02] MEDS: Fluticasone 0.05% 1 SPRAY NASAL.SRY 2 SPRAY NASAL (09:26)
[2023-03-02] MEDS: Miconazole Nitrate 43 GM Bottle 1 APPLIC TOPICAL ×2 (09:33→22:16)
[2023-03-02] MEDS: Menthol/Lanolin/Calamine/Znox 113 GM Tube 1 APPLIC TOPICAL ×2 (09:33→22:16)
[2023-03-02 09:34] VITALS: BP 102/52; PULSE 91
[2023-03-02] MEDS: Ferrous Sulfate 325 MG Tablet PO (12:44)
[2023-03-02 16:00] VITALS: BP 120/68; PULSE 92; RESP 16; TEMP 37.2; O2SAT 97
[2023-03-02] MEDS: Tamsulosin HCl 0.4 MG Capsule PO (17:08)
[2023-03-02] MEDS: Polyethylene Glycol 3350 17 GM PACKET PO (17:12)
[2023-03-02] MEDS: Mirtazapine 15 MG Tablet PO (22:18)
[2023-03-02] MEDS: MELATONIN 10 MG TABLET PO (22:18)
[2023-03-02] MEDS: Montelukast 10 MG Tablet PO (22:18)
[2023-03-02] MEDS: traMADol 50 MG Tablet PO (23:38)
[2023-03-03] MEDS: NYSTATIN 500,000 UNIT/5 ML UDC 500000 UNIT PO ×4 (05:42→21:48)
[2023-03-03] MEDS: Levothyroxine 75 MCG Tablet PO (05:42)
[2023-03-03] MEDS: Acetaminophen 500 MG Tablet 1000 MG PO ×3 (05:42→21:48)
[2023-03-03] MEDS: Multivitamins,Therapeutic Tablet 1 TABLET PO (09:27)
[2023-03-03] MEDS: Enoxaparin 40 MG/0.4 ML Syringe SC (09:28)
[2023-03-03] MEDS: Famotidine 20 MG Tablet 40 MG PO (09:28)
[2023-03-03] MEDS: Chlorthalidone 50 MG Tablet 25 MG PO (09:28)
[2023-03-03] MEDS: Sertraline 100 MG Tablet PO (09:28)
[2023-03-03] MEDS: Fluticasone/Salmeterol 232-14 Inhaler 1 PUFF INHALATION ×2 (09:29→21:51)
[2023-03-03] MEDS: Fluticasone 0.05% 1 SPRAY NASAL.SRY 2 SPRAY NASAL (09:29)
[2023-03-03] MEDS: Umeclidinium Bromide Inhaler 1 PUFF INHALATION (09:30)
[2023-03-03] MEDS: Menthol/Lanolin/Calamine/Znox 113 GM Tube 1 APPLIC TOPICAL ×2 (09:33→21:50)
[2023-03-03] MEDS: Miconazole Nitrate 43 GM Bottle 1 APPLIC TOPICAL ×2 (09:33→21:50)
[2023-03-03 09:40] VITALS: BP 107/64; PULSE 78; RESP 16; TEMP 36.2; O2SAT 95
[2023-03-03] MEDS: Ferrous Sulfate 325 MG Tablet PO (12:12)
[2023-03-03] MEDS: Magnesium Citrate 300 ML PO (14:38)
[2023-03-03] MEDS: Tamsulosin HCl 0.4 MG Capsule PO (17:02)
[2023-03-03 20:35] VITALS: PULSE 82; RESP 17; O2SAT 96
[2023-03-03 21:35] VITALS: BP 118/69; PULSE 82; RESP 17; TEMP 36.1; O2SAT 96
[2023-03-03] MEDS: Mirtazapine 15 MG Tablet PO (21:47)
[2023-03-03] MEDS: Montelukast 10 MG Tablet PO (21:47)
[2023-03-03] MEDS: Polyethylene Glycol 3350 17 GM PACKET PO (21:47)
[2023-03-03] MEDS: Senna/Docusate Sodium 1 Tablet 2 TABLET PO (21:47)
[2023-03-03] MEDS: MELATONIN 10 MG TABLET PO (21:47)
[2023-03-04] MEDS: NYSTATIN 500,000 UNIT/5 ML UDC 500000 UNIT PO (05:49)
[2023-03-04] MEDS: Acetaminophen 500 MG Tablet 1000 MG PO (05:51)
[2023-03-04] MEDS: Levothyroxine 75 MCG Tablet PO (05:51)
[2023-03-04] MEDS: Umeclidinium Bromide Inhaler 1 PUFF INHALATION (09:33)
[2023-03-04] MEDS: Fluticasone 0.05% 1 SPRAY NASAL.SRY 2 SPRAY NASAL (09:34)
[2023-03-04] MEDS: Fluticasone/Salmeterol 232-14 Inhaler 1 PUFF INHALATION (09:34)
[2023-03-04] MEDS: Multivitamins,Therapeutic Tablet 1 TABLET PO (09:34)
[2023-03-04] MEDS: Enoxaparin 40 MG/0.4 ML Syringe SC (09:35)
[2023-03-04] MEDS: Famotidine 20 MG Tablet 40 MG PO (09:35)
[2023-03-04] MEDS: Sertraline 100 MG Tablet PO (09:35)
[2023-03-04] MEDS: Chlorthalidone 50 MG Tablet 25 MG PO (09:35)
[2023-03-04] MEDS: Magnesium Citrate 300 ML PO (09:41)
--- NOTE | 2023-03-04 09:49 | NURSING ---
Patient still having issues w/ constipation. PRN Magnesium Citrate given. Patient tolerated medication administration well and will monitor for results. notified.
[2023-03-04 10:16] VITALS: BMI 24.8
--- NOTE | 2023-03-04 11:22 | CASEMGMT ---
Addendum entered by Zoraida Michael 03/04/23 15:32: Therapy stated pt is still a x2 assist and it is not safe for a car transport with family. SW phoned and updated. Offered [facility] as another w/c transport. agreed. SW phoned [facility] and they have availability for transport at 1300 on 03/07 for $23. SW notified and agreeable; will pay [facility]errano at time of transport. appreciative. PASRR completed. Original Note: Social Work Insurance issued LCD 03/06, DC 03/07 SW spoke with pt to update and confirm DC to [facility]. SW phoned to update and would prefer family transport, not [facility]. SW to speak with therapy on pt's abilities and follow up with . SW updated W and confirmed they can accept. SW sent updated clinicals per [facility] request. IDT updated. Plan: DC 03/[address] [facility], intermediate, private pay BEA Delatorre
[2023-03-04] MEDS: Bisacodyl 10 MG Suppository RC (12:43)
--- NOTE | 2023-03-04 13:36 | NURSING ---
Offered covid vaccine to patient, info about vaccine provided. Patient refuses at this time.
--- NOTE | 2023-03-04 14:00 | RAD_ITS ---
STUDY: X-RAY - ABDOMEN/PELVIS REASON FOR EXAM: Male, 82 years old. Constipation, nausea TECHNIQUE: Single AP view of the abdomen / pelvis. COMPARISON: None. FINDINGS: Normal visualized lung bases. Gaseous distention of the colon. Residual barium is seen in the rectosigmoid colon with evidence of sigmoid diverticulosis. The visualized liver, spleen and kidneys are grossly normal in size and morphology. Normal soft tissue structures. There are now with evidence of cephalic migration of the femoral neck. The previously seen reduction of the right subcapital fracture is disrupted. There are diffuse degenerative changes of the visualized lumbar spine. RAD/Abdomen Single View (Portable) IMPRESSION: Gaseous distention of the colon. Right subcapital fracture with cephalic displacement of the distal fracture fragment and screw fixation device. Electronically Signed: Antonio Kahn MD at 14:24 EDT ,
[2023-03-04 14:33] VITALS: BP 117/76; PULSE 94; RESP 20; TEMP 36.8; O2SAT 94
[2023-03-04] MEDS: Lactated Ringers 1,000 ML 75 ML IV (15:00)
[2023-03-04 16:04] LABS: Absolute Lymphocyte Count 0.76 X10^3/uL (0.83-4.51); Absolute Neutrophil Count 9.3 X10^3/uL (2.0-7.7); Basophil# 0.03 X10^3/uL; Basophil% 0.3 % (0-1); Eosinophil# 0.08 X10^3/uL; Eosinophils% 0.7 % (0-5); Hematocrit 40.1 % (40-54); Hemoglobin 12.4 g/dL (13.0-16.5); Lymphocyte # 0.76 X10^3/ul (0.83-4.51); Lymphocyte % 6.9 % (19-41); Mean Corp Hgb Conc 30.9 g/dL (32-36); Mean Corpuscular Hgb 27.5 pg (27.0-32.0); Mean Corpuscular Volume 88.9 fL (80-94); Mean Platelet Vol. 10.6 fl (6.2-12.0); Monocyte# 0.67 X10^3/uL; Monocyte% 6.1 % (0-10); NRBC Flagged by Analyzer 0 % (0-5); Neutrophil # 9.31 X10^3/uL (2.7-7.7); Neutrophil % 84.1 % (47-70); Platelet Count 368 K/mm3 (150-450); RBC Distribution Width CV 14.4 % (11.6-14.6); RBC Distribution Width SD 46.1 fl (35.1-43.9); Red Blood Count 4.51 M/mm3 (4.6-6.2); White Blood Count 11.1 K/mm3 (4.4-11.0)
[2023-03-04 16:07] LABS: ALB/GLOB Ratio 0.4 RATIO (0.9-2.4); AST(SGOT) 46 U/L (15-37); Alanine Aminotransfer ALT/SGPT 50 U/L (16-61); Albumin, Serum 2.8 g/dL (3.2-5.0); Alkaline Phosphatase 167 U/L (45-117); Anion Gap 8 (5-15); BUN 50 mg/dL (7-18); BUN/Creat Ratio 30.7 RATIO (10-20); Calcium,Total 9.7 mg/dL (8.5-10.1); Chloride 101 mmol/L (98-107); Creatinine, Serum 1.63 mg/dL (0.70-1.30); EST Glomerular Filtration Rate 43 mL/min (>60); Est Glom Filt Rate - Afr Amer 52 mL/min (>60); Estimated Creatinine Clearance 32.64 ml/min; Globulin 6.7 g/dL (2.2-4.2); Glucose 155 mg/dL (74-106); Potassium 4.1 mmol/L (3.5-5.1); Protein, Total 9.5 g/dL (6.4-8.2); Sodium Level 135 mmol/L (136-145)
--- NOTE | 2023-03-04 16:25 | NURSING ---
notified of KUB; Reviewed to add Reglan PCHS 5 mg IV. Soap Suds Enema to be given. Patient to have IV insertion w/ LR @ 75 mL/hr, CBC w/ Diff and BMP to be drawn. Lab jakob blood. IV inserted. Soap Shelia enema ineffective- patient unable to tolerate procedure as well as be able to hold in Soap Suds. Patient abdomen distended still and c/o intermittent nausea.
--- NOTE | 2023-03-04 16:26 | NURSING ---
Updated on covid positive patient. He will update his family.
[2023-03-04 16:48] VITALS: PULSE 66; RESP 16; O2SAT 95
[2023-03-04] MEDS: Metoclopramide 10 MG/2 ML Vial 5 MG IV (17:33)
[2023-03-04] MEDS: Piperacil/Tazobactam 3.375 GM in 0.9% Normal Saline (50mL MB+) 50 ML IV (18:26)
[2023-03-04] MEDS: 0.9% Normal Saline (250mL Bag) 250 ML 15 ML IV (18:27)
[2023-03-04] MEDS: 0.9% Saline Lock 10 ML Syringe IV (18:28)
--- NOTE | 2023-03-04 18:52 | NURSING ---
Per MD KUB showed Right Displacement of right hip percutaneous screwing. Patient to have focused right hip xray and spittle to be notified in AM.
--- NOTE | 2023-03-04 19:40 | RAD_ITS ---
STUDY: X-RAY - PELVIS AND RIGHT HIP REASON FOR EXAM: Male, 82 years old. Possible Displaced Hip TECHNIQUE: 3 views of the pelvis and hip. COMPARISON: 02/06/2023 FINDINGS: There is a non-specific bowel gas pattern. Barium within the rectum and diverticula the sigmoid colon. Normal bilateral iliac wings, sacroiliac joints and visualized sacrum. Normal bilateral superior and inferior pubic rami. Normal pubic symphysis. Normal bilateral ischial tuberosities. Interval proximal displacement of the fracture of the subcapital femoral neck despite the interval placement of 3 percutaneous screws. Normal acetabulum. Normal hip joint. RAD/HIP, UNI W/ Pelvis 2-3 Views IMPRESSION: Interval displacement of fracture of the subcapital femoral neck despite interval placement of 3 percutaneous screws. Electronically Signed: Mauro Pope MD at 19:53 EDT ,
--- NOTE | 2023-03-04 20:01 | NURSING ---
Pt updated on imaging results and order to send to ER. Pt understanding and thankful to TCU staff and Dr. Alvarez.
--- NOTE | 2023-03-04 20:06 | PCM.DC.SUM ---
Providers Date of Admission: 02/11/23 Primary Care Physician: Dr. Angelique Grossman MD Consultations 02/27/23 20:51 Consult: Onc/Wound/conceptor Routine Comment: Reason for Consult:: open area x2 right buttock Reason For Visit: RIGHT HIP FRACTURE Diagnosis Discharge Diagnosis (1) Debility: Status: Acute Code(s): R53.81 - Other malaise (2) Closed right hip fracture: Status: Acute Code(s): S72.001A - Fracture of unspecified part of neck of right femur, initial encounter for closed fracture Qualifiers: Encounter type: initial encounter Qualified Code(s): S72.001A - Fracture of unspecified part of neck of right femur, initial encounter for closed fracture (3) Hip fracture requiring operative repair: Status: Acute Code(s): S72.009A - Fracture of unspecified part of neck of unspecified femur, initial encounter for closed fracture (4) Closed head injury: Status: Acute Code(s): S09.90XA - Unspecified injury of head, initial encounter (5) Depression: Status: Acute Code(s): F32.A - Depression, unspecified (6) Hypertension: Status: Chronic Code(s): I10 - Essential (primary) hypertension (7) Allergic rhinitis: Status: Acute Code(s): J30.9 - Allergic rhinitis, unspecified (8) Hypothyroidism: Status: Chronic Code(s): E03.9 - Hypothyroidism, unspecified (9) Asthma: Status: Chronic Code(s): J45.909 - Unspecified asthma, uncomplicated Qualifiers: Asthma severity: unspecified severity Asthma complication type: unspecified (10) Iron deficiency anemia: Status: Acute Code(s): D50.9 - Iron deficiency anemia, unspecified (11) GERD (gastroesophageal reflux disease): Status: Chronic Code(s): K21.9 - Gastro-esophageal reflux disease without esophagitis (12) Severe aortic stenosis: Status: Acute Code(s): I35.0 - Nonrheumatic aortic (valve) stenosis Plan 82 year old male with below past medical history hospitalized for right hip fracture, underwent percutaneous screw fixation right femoral neck fracture 02/07/[address] Andrews, admitted to TCU with debility, here for rehabilitation, strengthening, prior to discharge home with . Debility - PT/OT. Pain - Tylenol 1000mg q8, Tramadol 50mg q6h prn pain (1-5), Oxycodone 2.5mg q4h prn pain (6-10). Bowel - Miralax 17gm bid, senna/colace 2 tablets bid, Magnesium citrate 300ml daily prn. Adult immunization - Administer pneumonia vaccine, covid19 vaccine, flu vaccine as appropriate. DVT prophylaxis - Lovenox 40mg sc daily. Asthma/COPD - Albuterol 2.5mg q6h prn, Advair 1 puff bid, Incruse 1 puff daily, Singulair 10mg qhs. Hypertension - Chlorthalidone 25mg daily. Anaphylaxis - Epipen 0.3mg im x 1 prn. GERD - Famotidine 40mg daily. Iron deficiency anemia - Ferrous sulfate 325mg daily. Allergic rhinitis - Flonase 2 sprays daily Hospital acquired pneumonia - Levaquin 750mg q48 thru 02/17/2023. Hypothyroidism - Levothyroxine 75mcg daily. Nutrition - MVI daily. Coronary artery disease - NTG 0.4mg sl q5m prn. 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 Medications at Discharge Home Medications acetaminophen 500 mg tablet 1,000 mg PO BID PRN PRN Pain 12/04/18 epinephrine 0.3 mg/0.3 mL injection, auto-injector 0.3 mg IJ PRN PRN Anaphylaxis 12/04/18 multivitamin 1 tab PO QAM vitamin 04/19/19 sertraline 100 mg tablet 100 mg PO DAILY mental health #90 tabs 06/10/22 fluticasone propionate 50 mcg/actuation nasal spray,suspension 2 spray intranasal DAILY allergies #16 grams 06/27/22 chlorthalidone 25 mg tablet 25 mg PO DAILY blood pressure #90 tabs 07/08/22 nystatin-triamcinolone 100,000 unit/g-0.1 % topical cream 1 applic topical BID PRN rash #30 grams 07/25/22 levothyroxine 75 mcg tablet 75 mcg PO DAILY thyroid #90 tabs 08/12/22 fluticasone propionate 230 mcg-salmeterol 21 mcg/actuation HFA inhaler 2 puff inhalation BID breathing #1 device 08/23/22 tiotropium bromide 2.5 mcg/actuation mist for inhalation (Spiriva Respimat) 2 puff inhalation QDAY breathing #1 ea 08/23/22 montelukast 10 mg tablet 10 mg PO QPM allergies #30 tabs 09/27/22 albuterol sulfate 90 mcg/actuation aerosol inhaler 2 puff inhalation Q4H PRN PRN Sob &/Or Wheezing #1 ea 10/29/22 ferrous sulfate 325 mg (65 mg iron) tablet (FeroSul) 325 mg PO DAILY iron 11/29/22 nitroglycerin 0.4 mg sublingual tablet 0.4 mg sublingual Q5-15M PRN CHEST PAIN #25 tabs 12/02/22 famotidine 40 mg tablet 40 mg PO DAILY reflux #90 tabs 01/02/23 albuterol sulfate 2.5 mg/3 mL (0.083 %) solution for nebulization 2.5 mg inhalation Q6H PRN shortness of breath or wheezing 01/30/23 enoxaparin 40 mg/0.4 mL subcutaneous syringe 40 mg (0.4 mL) subcut DAILY 30 days #12 mL 02/11/23 hydrocodone-acetaminophen 5-325mg 5mg-325mg 1 tab PO Q6H PRN PRN Pain Score 6-10 3 days #15 tabs 02/11/23 levofloxacin 750 mg tablet 750 mg PO DAILY 6 days #6 tabs 02/11/23 polyethylene glycol 3350 17 gram oral powder packet 17 g PO BID 7 days #30 ea 02/11/23 Hospital Course Operations - (See below.) Procedures None Summary of Care Provided Minutes Spent on Discharge: 35 Hospital Course: 82 year old male with below past medical history hospitalized for right hip fracture, underwent percutaneous screw fixation right femoral neck fracture 02/07/[address] Andrews, admitted to TCU with debility, here for rehabilitation, strengthening, prior to discharge home with . 03/04/2023 Resident refused meds, refused to eat, nausea, no bowel movement, abdomen distended. X-ray of abdomen showed bowel gas. On exam he has left lower quadrant pain consistent with sigmoid diverticulitis, CT abdomen/pelvis ordered but requires pre-CERT due to Medicare Advantage insurance. Zosyn 3.375gm IV ordered. X-ray abdomen showed displacement of right hip fracture status post screw fixation. Dedicated X-ray of right hip shows Interval displacement of fracture of the subcapital femoral neck despite interval placement of 3 percutaneous screws. With rebroken right hip, and sigmoid diverticulitis, resident would be better served in the hospital. Discharge to [facility] Emergency Department 03/04/2023 for evaluation, possible admission to hospital. Physical Exam Const alert General Appearance: cooperative HEENT normocephalic Eyes PERRL and EOMs intact bilaterally Neck supple, no JVD and no carotid bruits Resp normal respiratory effort, normal air movement and clear to auscultation bilaterally Cardio regular rate and regular rhythm GI normal to inspection, nondistended, normoactive bowel sounds, non-tender and non-distended GI Narrative: Left lower quadrant pain on exam. Auscultation: hypoactive bowel sounds Palpation: tender Extremity normal capillary refill General Extremity: Negative for edema Skin no rashes or lesions noted General Skin Exam: no breakdown Psych affect normal Appearance: appropriate Medical Records Data Medical Nutrition Assessment Dietitian: Malnutrition Criteria Met Start: 02/26/23 14:56 Freq: Status: Active Protocol: Document 02/26/23 14:56 SLA (Rec: 02/26/23 14:56 SLA Desktop) Nutrition Malnutrition Evidence of Malnutrition Exists Yes Malnutrition (severe): Acute Illness/Injury Evidenced By Suboptimal Energy Intake ( Severe),Weight Loss (Severe) Intake Problem Inadequate Oral Intake Status Inactive Problem Clinical Problem Acute Disease or Injury Related Malnutrition Etiology related to decreased appetite, improved post op fluid status and issues w/ diarrhea Signs/Symptoms as evidenced by <50% po intake at most meals and 10.9% unintended wt loss x ~ 2 wks Status Active Problem Biting/Chewing Difficulty Etiology related to jaw problems and dysphagia Signs/Symptoms as indicated by need for modified consistency diet Status Active Problem Recommendation Dietitian Recommendations/Changes Will change to Regular lactose modified diet w/ consistency per EXECUTIVE CHEF Will d/c magic cup w/ lunch and dinner and give fruit smoothie w/ lactose free milk, crushed ice and fruit w/ lunch and dinner for increased nutrition if consumed Continue appetite stimulant to help encourage increased po intake. Weight / BMI Weight Weight: 74.117 kg Body Mass Index (BMI) 24.8 ABG / Lab / Microbiology Data 03/04/23 15:05 03/04/23 15:05 Laboratory: Laboratory Results - last 24 hr 03/04/23 15:05: WBC 11.1 H, RBC 4.51 L, Hgb 12.4 L, Hct 40.1, MCV 88.9, MCH 27.5, MCHC 30.9 L, RDW Std Deviation 46.1 H, RDW Coeff of John 14.4, Plt Count 368, MPV 10.6, Immature Gran % (Auto) 1.900 H, Neut % (Auto) 84.1 H, Lymph % (Auto) 6.9 L, [place] % (Auto) 6.1, Eos % (Auto) 0.7, Baso % (Auto) 0.3, Absolute Neuts (auto) 9.3 H, Absolute Lymphs (auto) 0.76 L, Nucleated RBC % 0, Sodium 135 L, Potassium 4.1, Chloride 101, Carbon Dioxide 26.0, Anion Gap 8, BUN 50 H, Creatinine 1.63 H, Estim Creat Clear Calc 32.64, Est GFR (MDRD) Af Amer 52 L, Est GFR (MDRD) Non-Af 43 L, BUN/Creatinine Ratio 30.7 H, Glucose 155 H, Calcium 9.7, Total Bilirubin 0.20, AST 46 H, ALT 50, Alkaline Phosphatase 167 H, Total Protein 9.5 H, Albumin 2.8 L, Globulin 6.7 H, Albumin/Globulin Ratio 0.4 L Microbiology: Microbiology 03/04/23 05:40 Nasal Secretion SARS-CoV-2 Antigen (Rapid) - Final 03/01/23 05:50 Nasal Secretion SARS-CoV-2 Antigen (Rapid) - Final 02/26/23 05:49 Nasal Secretion SARS-CoV-2 Antigen (Rapid) - Final 02/23/23 06:20 Nasal Secretion SARS-CoV-2 Antigen (Rapid) - Final 02/20/23 02:18 Nasal Secretion SARS-CoV-2 Antigen (Rapid) - Final 02/15/23 16:08 Urine Catheter - Catheter Urine Culture - Final Culture exhibits no growth. 02/17/23 02:39 Nasal Secretion SARS-CoV-2 Antigen (Rapid) - Final 02/14/23 05:30 Nasal Secretion SARS-CoV-2 Antigen (Rapid) - Final Radiography Diagnostic Testing: Radiology Impression KUB X-Ray 03/04/23 14:00 IMPRESSION: Gaseous distention of the colon. Right subcapital fracture with cephalic displacement of the distal fracture fragment and screw fixation device. Electronically Signed: Antonio Kahn MD at 14:24 EDT , Hip/Pelvis X-Ray 03/04/23 19:40 IMPRESSION: Interval displacement of fracture of the subcapital femoral neck despite interval placement of 3 percutaneous screws. Electronically Signed: Mauro Pope MD at 19:53 EDT , D/C Instructions Discharge Diet: No restrictions Discharge Activity: Return to Normal Activity, May Shower and Use Walker Weight Bearing Status: Weight bearing as tolerated Call your doctor if you observe: Fever of 101 or Higher, Inability to urinate, Inability to have a bowel movement, Shortness of breath, Dizziness, Fainting spells, Swelling in the ankles, Chest pain and Uncontrolled pain Additional Instructions: Discharge to [facility] Emergency Department 03/04/2023 for evaluation, possible admission to hospital. Please Follow Up With: Dr. Grossman When: After discharge. Meaningful Use Info Meaningful Use Diagnoses (Choose all that apply): None applicable Discharge Plan Admission Admit Date/Time: 02/11/23 18:30 Primary Reason for Your Visit: Debility. Attending Provider: Bon Alvarez Chi Primary Care Provider: Angelique Grossman Instructions Additional Instructions / Restrictions: Discharge to [facility] Emergency Department 03/04/2023 for evaluation, possible admission to hospital. Discharge Orders/Prescriptions Prescriptions: No Action multivitamin Tablet 1 tab PO QAM montelukast 10 mg tablet 10 mg PO QPM Qty: 30 3RF ferrous sulfate [FeroSul] 325 mg (65 mg iron) tablet 325 mg PO DAILY epinephrine 0.3 MG/0.3 ML auto-injector 0.3 mg IJ PRN PRN (Reason: Anaphylaxis) acetaminophen 500 MG tablet 1,000 mg PO BID PRN PRN (Reason: Pain) albuterol sulfate 2.5 mg /3 mL (0.083 %) solution for nebulization 2.5 mg INHALATION Q6H PRN (Reason: shortness of breath or wheezing) enoxaparin 40 mg/0.4 mL Syringe 40 mg subcut DAILY 30 Days Qty: 12 0RF polyethylene glycol 3350 17 gram Powder In Packet 17 g PO BID 7 Days Qty: 30 0RF levofloxacin 750 mg Tablet 750 mg PO DAILY 6 Days Qty: 6 0RF hydrocodone-acetaminophen 5-325 mg Tablet 1 tab PO Q6H PRN PRN (Reason: Pain Score 6-10) 3 Days Qty: 15 0RF sertraline 100 mg tablet 100 mg PO DAILY Qty: 90 1RF fluticasone propionate 50 mcg/actuation spray,suspension 2 spray intranasal DAILY Qty: 16 3RF chlorthalidone 25 mg tablet 25 mg PO DAILY Qty: 90 3RF nystatin-triamcinolone 100,000-0.1 unit/g-% cream 1 applic topical BID PRN (Reason: rash) Qty: 30 1RF levothyroxine 75 mcg tablet 75 mcg PO DAILY Qty: 90 3RF fluticasone propion-salmeterol 230-21 mcg/actuation HFA aerosol inhaler 2 puff INHALATION BID Qty: 1 11RF Spiriva Respimat 2.5 mcg/actuation mist 2 puff INHALATION QDAY Qty: 1 11RF albuterol sulfate 90 mcg/actuation HFA aerosol inhaler 2 puff INHALATION Q4H PRN PRN (Reason: Sob &/Or Wheezing) Qty: 1 6RF nitroglycerin 0.4 mg tablet, sublingual 0.4 mg sublingual Q5-15M PRN (Reason: CHEST PAIN) Qty: 25 3RF famotidine 40 mg tablet 40 mg PO DAILY Qty: 90 3RF Referrals / Follow Up: Angelique Grossman MD [Primary Care Provider] - Teofilo Andrews DO [Med Staff - Active Staff] - 03/21/23 1:30 pm Disposition Disposition (needs filled in before D/C Order can be placed): Acute Care Hospital [facility]
--- NOTE | 2023-03-04 20:12 | NURSING ---
Dr. Alvarez called and gave Order to send Pt to [facility].
--- NOTE | 2023-03-04 20:23 | NURSING ---
Report on pt condition called down to Zane GALLEGOS in [facility] ER.
--- NOTE | 2023-03-04 20:29 | NURSING ---
Pt off the floor and being transported to ER.
--- NOTE | 2023-03-04 20:32 | NURSING ---
updated on pt condition and order to send to ER.
--- NOTE | 2023-03-04 22:00 | NURSING ---
Update from ER. Pt to be admitted to [facility].
== END 2023-03-04 22:09 | disposition short-term general hospital (02) | DRG 559 ==
PROVIDERS: Admitting Provider Family Medicine Geriatric Medicine; PCP Internal Medicine; Visit Provider Family Medicine Geriatric Medicine
DX: S72.001D Fracture of unspecified part of neck of right femur, subsequent encounter for closed fracture with routine healing (principal); J18.9 Pneumonia, unspecified organism; J44.0 Chronic obstructive pulmonary disease with (acute) lower respiratory infection; M96.661 Fracture of femur following insertion of orthopedic implant, joint prosthesis, or bone plate, right leg; K57.32 Diverticulitis of large intestine without perforation or abscess without bleeding; D63.1 Anemia in chronic kidney disease; N18.30 Chronic kidney disease, stage 3 unspecified; I12.9 Hypertensive chronic kidney disease with stage 1 through stage 4 chronic kidney disease, or unspecified chronic kidney disease; D50.0 Iron deficiency anemia secondary to blood loss (chronic); E03.9 Hypothyroidism, unspecified; F32.A Depression, unspecified; E78.5 Hyperlipidemia, unspecified; K21.9 Gastro-esophageal reflux disease without esophagitis; J30.9 Allergic rhinitis, unspecified; W19.XXXD Unspecified fall, subsequent encounter; Z79.51 Long term (current) use of inhaled steroids; Z79.01 Long term (current) use of anticoagulants; S01.01XD Laceration without foreign body of scalp, subsequent encounter; S51.011D Laceration without foreign body of right elbow, subsequent encounter; Z79.899 Other long term (current) drug therapy; Z79.890 Hormone replacement therapy
CPT/HCPCS: 36415; 71046; 73030; 73502; 74018; 74230; 80048; 80053; 81001; 85014; 85018; 85025; 87086; 87811; 92523; 92526; 92610; 92611; 97110; 97116; 97162; 97166; 97530; 97535; 97802; J7030; J7050; J7120; A4216

== ENCOUNTER → 2023-02-17 | Outpatient (CLI) | payer MEDICARE, SELFPAY ==
--- NOTE | 2023-02-17 14:13 | MRI_ITS ---
EXAM: MR HEAD WITHOUT INTRAVENOUS CONTRAST CLINICAL INDICATION: DIZZINESS, VISION CHANGES TECHNIQUE: Multiplanar and multisequence MR images of the brain were obtained without intravenous contrast. COMPARISON: CT head without contrast 02/06/2023. FINDINGS: BRAIN AND EXTRA-AXIAL SPACES: Unremarkable. No intra- or extra-axial hemorrhage. No evidence of acute infarct. No intracranial mass or mass effect. There is preservation of the cooper/white matter interface. Posterior fossa structures are unremarkable. Ventricles are appropriate for age. No hydrocephalus. Basal cisterns are patent. SELLA: Unremarkable. Normal sella turcica, pituitary gland, infundibular stalk, optic chiasm and hypothalamus. AUDITORY SYSTEM: Unremarkable. The internal auditory canals are patent. BONES/JOINTS: Unremarkable. No discrete lytic or blastic abnormalities. SINUSES: Unremarkable as visualized. Clear. MASTOID AIR CELLS: Unremarkable as visualized. Clear. ORBITS: Unremarkable as visualized. Both globes, extraocular muscles, optic nerves and retrobulbar fat appear unremarkable. VASCULATURE: Unremarkable as visualized. Normal flow voids in the major intracranial circulation. MRI/Brain without Contrast IMPRESSION: Negative MRI brain without intravenous contrast. Electronically Signed: Jalil Cherry MD at 8:04 EDT ,
[2023-02-17 14:36] VITALS: BP 101/58; PULSE 86; RESP 16; O2SAT 99
[2023-02-17 14:49] VITALS: BP 126/63; PULSE 85; RESP 16; O2SAT 95
[2023-02-17 15:03] VITALS: BP 122/66; PULSE 85; RESP 16; O2SAT 95
== END | disposition home or self-care (01) ==
LOC: MRI 13:44
PROVIDERS: PCP Internal Medicine; Visit Provider Family Medicine Geriatric Medicine
DX: H53.30 Unspecified disorder of binocular vision (principal); R42 Dizziness and giddiness
CPT/HCPCS: 70551

== ENCOUNTER 2023-03-04 20:38 | Observation (INO) | payer MEDICARE, SELFPAY ==
[2023-03-04 20:39] VITALS: BP 120/77; PULSE 97; RESP 12; O2SAT 96
[2023-03-04 20:40] VITALS: BP 105/70; PULSE 98; RESP 12; TEMP 36.8; O2SAT 96; BMI 26.4
--- NOTE | 2023-03-04 21:12 | EKG12_ITS ---
Test Reason : PRE-OP Blood Pressure : / mmHG Vent. Rate : 096 BPM Atrial Rate : 096 BPM P-R Int : 182 ms QRS Dur : 156 ms QT Int : 414 ms P-R-T Axes : 046 -79 075 degrees QTc Int : 523 ms Atrial-sensed ventricular-paced rhythm Abnormal ECG Confirmed by OPAL MOULTON, MARI ([id number]), editor newspaper KRISTINA FERRELL ([id number]) on 03/06/2023 2:04:24 PM Referred By: MARIA L Confirmed By:MARI JOSEPH MD
--- NOTE | 2023-03-04 21:15 | RAD_ITS ---
STUDY: X-RAY CHEST REASON FOR EXAM: Male, 82 years old. pre-op TECHNIQUE: Single AP portable view of the chest. COMPARISON: 02/26/2023 FINDINGS: Left subclavian pacemaker which is unchanged. The lungs are clear and expanded. No change in bilateral calcified pleural plaques. Normal size heart. Normal mediastinum and mamadou. Normal visualized pulmonary arteries. Normal visualized aortic arch and descending thoracic aorta. Normal visualized thoracic spine. Normal visualized ribs, clavicles, and shoulders. There is no demonstrated abnormality of the visualized soft tissue structures of the upper abdomen. RAD/Chest 1 View (Portable) IMPRESSION: No active disease. Electronically Signed: Mauro Pope MD at 21:28 EDT ,
--- NOTE | 2023-03-04 21:27 | EDS_ITS ---
HPI History of Present Illness Chief Complaint: Lower Extremity Injury Detail of Chief Complaint: Right hip fracture Informant: patient Narrative Narrative: Patient presents from TCU secondary to right hip fracture. Patient was admitted to the hospital on February 06 with a right subcapital hip fracture. It appears he went to surgery on the and had 3 pins placed. Patient was transferred to the TCU on the for further therapy. Patient has had problems with constipation. Today he had a KUB obtained to evaluate his bowel gas pattern and right hip fracture was noted despite pin placement. Dedicated pelvis and right hip x-rays were then obtained that revealed displacement of the fracture. Patient was then sent to the emergency room for further treatment. Patient states that he has had trouble controlling his leg when trying to walk for therapy since his fracture. Nursing staff on TCU reported that his leg has been shortened since arrival on the unit on the . 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, right Diverticulosis Diverticulosis Essential (primary) hypertension Gout Hay fever History of deep vein thrombosis of lower extremity HLD (hyperlipidemia) Hypothyroidism Iron deficiency anemia due to chronic blood loss Left ventricular diastolic dysfunction Leg wound, left Macular degeneration Non-pressure chronic ulcer of left calf with fat layer exposed Nonrheumatic aortic (valve) stenosis Osteoarthritis Pleural plaque Presence of cardiac pacemaker Pulmonary nodule Right knee DJD Secondary pulmonary arterial hypertension Skin cancer Traumatic open wound of right lower leg with infection Venous ulcer with fat layer exposed Home Medications acetaminophen 500 mg tablet 1,000 mg PO BID PRN PRN Pain 12/04/18 [History Last Taken 12/03/18] epinephrine 0.3 mg/0.3 mL injection, auto-injector 0.3 mg IJ PRN PRN Anaphylaxis 12/04/18 [History Last Taken Unknown] multivitamin 1 tab PO QAM vitamin 04/19/19 [History Last Taken 02/06/23] sertraline 100 mg tablet 100 mg PO DAILY mental health #90 tabs 06/10/22 [Rx Last Taken 02/06/23] fluticasone propionate 50 mcg/actuation nasal spray,suspension 2 spray intranasal DAILY allergies #16 grams 06/27/22 [Rx Last Taken Unknown] chlorthalidone 25 mg tablet 25 mg PO DAILY blood pressure #90 tabs 07/08/22 [Rx Last Taken 02/06/23] nystatin-triamcinolone 100,000 unit/g-0.1 % topical cream 1 applic topical BID PRN rash #30 grams 07/25/22 [Rx Last Taken Unknown] levothyroxine 75 mcg tablet 75 mcg PO DAILY thyroid #90 tabs 08/12/22 [Rx Last Taken 02/06/23] fluticasone propionate 230 mcg-salmeterol 21 mcg/actuation HFA inhaler 2 puff inhalation BID breathing #1 device 08/23/22 [Rx Last Taken 02/06/23] tiotropium bromide 2.5 mcg/actuation mist for inhalation (Spiriva Respimat) 2 puff inhalation QDAY breathing #1 ea 08/23/22 [Rx Last Taken 02/06/23] montelukast 10 mg tablet 10 mg PO QPM allergies #30 tabs 09/27/22 [Rx Last Taken 02/06/23] albuterol sulfate 90 mcg/actuation aerosol inhaler 2 puff inhalation Q4H PRN PRN Sob &/Or Wheezing #1 ea 10/29/22 [Rx Last Taken Unknown] ferrous sulfate 325 mg (65 mg iron) tablet (FeroSul) 325 mg PO DAILY iron 11/29/22 [History Last Taken 02/06/23] nitroglycerin 0.4 mg sublingual tablet 0.4 mg sublingual Q5-15M PRN CHEST PAIN #25 tabs 12/02/22 [Rx Last Taken Unknown] famotidine 40 mg tablet 40 mg PO DAILY reflux #90 tabs 01/02/23 [Rx Last Taken 02/06/23] albuterol sulfate 2.5 mg/3 mL (0.083 %) solution for nebulization 2.5 mg inhalation Q6H PRN shortness of breath or wheezing 01/30/23 [History Last Taken 02/06/23] enoxaparin 40 mg/0.4 mL subcutaneous syringe 40 mg (0.4 mL) subcut DAILY 30 days #12 mL 02/11/23 [Rx Last Taken Unknown] hydrocodone-acetaminophen 5-325mg 5mg-325mg 1 tab PO Q6H PRN PRN Pain Score 6-10 3 days #15 tabs 02/11/23 [Rx Last Taken Unknown] levofloxacin 750 mg tablet 750 mg PO DAILY 6 days #6 tabs 02/11/23 [Rx Last Taken Unknown] polyethylene glycol 3350 17 gram oral powder packet 17 g PO BID 7 days #30 ea 02/11/23 [Rx Last Taken Unknown] Allergy/AdvReac Type Severity Reaction Status Date / Time indomethacin [From Indocin] AdvReac Intermediate Itching Verified 03/04/23 20:42 indomethacin sodium AdvReac Intermediate Itching Verified 03/04/23 20:42 [From Indocin] oxycodone HCl [From Percocet] AdvReac Intermediate Itching Verified 03/04/23 20:42 Family History Father Heart disease Colon cancer Sister Diabetes Mother Breast cancer Surgical History H/O hernia repair H/O prostatectomy H/O shoulder surgery H/O total knee replacement History of appendectomy History of appendectomy History of carpal tunnel surgery History of hernia repair History of left heart catheterization (02/25/22) History of prostatectomy History of total knee replacement History of total left hip replacement History of total left hip replacement Social History household members: spouse housing: house Smoking Status: Never smoker second hand exposure: Yes alcohol intake: current alcohol intake frequency: holidays/special occasions only Alcohol type: beer substance use type: does not use caffeine: Yes Type: coffee Number of servings: 2 what type of physical activity do you participate in: walking frequency: daily giancarlo/muslim: Protestant seatbelt use: always do you feel safe at home: Yes ROS ROS ED Constitutional Constitutional ED: Denies chills or fever(s) Eyes Eyes: Denies change in vision ENT ENT ED: Denies rhinorrhea or sore throat Cardiovascular Cardiovascular: Denies chest pain or palpitations Respiratory/Chest Respiratory/Chest: Denies cough or dyspnea Gastrointestinal Gastrointestinal: Reports abdominal pain and constipation; Denies diarrhea, nausea or vomiting Genitourinary Genitourinary ED: Denies dysuria Musculoskeletal Musculoskeletal: Reports extremity pain; Denies back pain Integumentary Denies Abrasions or rash Neurologic Neurologic: Reports weakness; Denies headache(s) Allergic/Immunologic Allergic/Immunologic ED: Denies lip swelling or urticaria EXAM Physical Exam Const Vital Signs: 03/04/23 20:40 03/04/23 20:39 Temperature 98.3 F Temperature Source Temporal Pulse Rate 98 97 Respiratory Rate 12 12 Blood Pressure 105/70 120/77 Blood Pressure Mean 81 91 Pulse Ox 96 96 Oxygen Delivery Method Room Air Room Air Positive well nourished and well developed General Appearance ED: well developed HEENT Reports moist mucous membranes Eyes EOMs intact bilaterally Chest Wall inspection of chest normal and palpation of chest normal Resp normal respiratory effort and clear to auscultation bilaterally Cardio regular rate and regular rhythm GI non-tender Auscultation: normoactive bowel sounds Palpation: soft Extremity Extremity Narrative: Right leg is shortened and slightly externally rotated. Strong distal pulses. Patient has neuropathy at baseline but does have good sensation with palpation over his lower leg. Neuro oriented x3 Psych mental status grossly normal MDM MDM MDM Narrative Medical decision making narrative: Patient had lab work earlier today that revealed a white count of 11.1 with 84% neutrophils. Chemistry studies reveal a BUN of 50 and a creatinine 1.63. Glucose was 155. AST is 46 and alk phos is 167. I did review the patient's x-rays that he had earlier today. This reveals diffuse displacement of his previously described subcapital hip fracture despite placement of 3 pins. At this time I will speak with orthopedics and obtain an EKG and portable chest x-ray for preop clearance. Radiography Chest X-Ray - ED: 1 View, Read by ED Physician and Chronic Changes (Calcified lesions noted bilaterally, unchanged from prior.) Diagnostic Testing: Clinical Impression(s) from Imaging Studies Chest X-Ray 03/04/23 21:15 IMPRESSION: No active disease. Electronically Signed: Mauro Pope MD at 21:28 EDT , EKG Initial EKG: Attestation: I personally reviewed and interpreted this EKG as follows: Interpretation: - (Paced rhythm at 96 bpm. No acute ischemia.) Discharge Plan Dx/Rx/DC Orders Clinical Impression: Closed hip fracture, Failed fixation of fracture Disposition Disposition: Acute Care Hospital [facility]
[2023-03-04 21:56] VITALS: BP 120/76; PULSE 78; RESP 18; O2SAT 98
--- NOTE | 2023-03-04 21:57 | HP.PCM.HOS_ITS ---
[facility] - General General Date of Admission: 03/04/23 Date of Service: 03/04/23 Chief Complaint: Accidental finding of dislocation of recent surgical repair of right hip fracture. HPI Narrative CARISSA VANG, is a 82 M who has been in ED since recent discharge 02/11/2023 after surgery for closed right hip fracture on 02/07/2023 having constipation. Patient stated he did not had bowel movement until today and his abdomen felt gassy and distention. Patient on a stool softener by Dr. Alvarez. Patient was sent to ED for KUB x-ray which showed gaseous distention of the colon and also right subacute fracture with cephalic distal placement of the distal fracture fragment and screw fixation device. Subsequently patient had dedicated x-ray of the pelvis including right hip which revealed similar findings. Right femoral head is still in the acetabulum. ED physician consulted Dr. Tristan on-call who said Dr. Teofilo Andrews who was operating surgeon will see tomorrow. Patient did not go for 2 weeks follow-up Patient denies fall, acute bending or any unusual event that might have caused dislocation. No fever or chills. Patient further said that he had mild pain in left lower quadrant in TCU but currently does not have. Patient completed antibiotic Levaquin for suspected pneumonia in TCU but patient did not had CT scan or other systemic clinical features of diverticulitis. 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, right Diverticulosis Diverticulosis Essential (primary) hypertension Gout Hay fever History of deep vein thrombosis of lower extremity HLD (hyperlipidemia) Hypothyroidism Iron deficiency anemia due to chronic blood loss Left ventricular diastolic dysfunction Leg wound, left Macular degeneration Non-pressure chronic ulcer of left calf with fat layer exposed Nonrheumatic aortic (valve) stenosis Osteoarthritis Pleural plaque Presence of cardiac pacemaker Pulmonary nodule Right knee DJD Secondary pulmonary arterial hypertension Skin cancer Traumatic open wound of right lower leg with infection Venous ulcer with fat layer exposed Home Medications acetaminophen 500 mg tablet 1,000 mg PO BID PRN PRN Pain 12/04/18 [History Last Taken 12/03/18] epinephrine 0.3 mg/0.3 mL injection, auto-injector 0.3 mg IJ PRN PRN Anaphylaxis 12/04/18 [History Last Taken Unknown] multivitamin 1 tab PO QAM vitamin 04/19/19 [History Last Taken 02/06/23] sertraline 100 mg tablet 100 mg PO DAILY mental health #90 tabs 06/10/22 [Rx Last Taken 02/06/23] fluticasone propionate 50 mcg/actuation nasal spray,suspension 2 spray intranasal DAILY allergies #16 grams 06/27/22 [Rx Last Taken Unknown] chlorthalidone 25 mg tablet 25 mg PO DAILY blood pressure #90 tabs 07/08/22 [Rx Last Taken 02/06/23] nystatin-triamcinolone 100,000 unit/g-0.1 % topical cream 1 applic topical BID PRN rash #30 grams 07/25/22 [Rx Last Taken Unknown] levothyroxine 75 mcg tablet 75 mcg PO DAILY thyroid #90 tabs 08/12/22 [Rx Last Taken 02/06/23] fluticasone propionate 230 mcg-salmeterol 21 mcg/actuation HFA inhaler 2 puff inhalation BID breathing #1 device 08/23/22 [Rx Last Taken 02/06/23] tiotropium bromide 2.5 mcg/actuation mist for inhalation (Spiriva Respimat) 2 puff inhalation QDAY breathing #1 ea 08/23/22 [Rx Last Taken 02/06/23] montelukast 10 mg tablet 10 mg PO QPM allergies #30 tabs 09/27/22 [Rx Last Taken 02/06/23] albuterol sulfate 90 mcg/actuation aerosol inhaler 2 puff inhalation Q4H PRN PRN Sob &/Or Wheezing #1 ea 10/29/22 [Rx Last Taken Unknown] ferrous sulfate 325 mg (65 mg iron) tablet (FeroSul) 325 mg PO DAILY iron 11/29/22 [History Last Taken 02/06/23] nitroglycerin 0.4 mg sublingual tablet 0.4 mg sublingual Q5-15M PRN CHEST PAIN #25 tabs 12/02/22 [Rx Last Taken Unknown] famotidine 40 mg tablet 40 mg PO DAILY reflux #90 tabs 01/02/23 [Rx Last Taken 02/06/23] albuterol sulfate 2.5 mg/3 mL (0.083 %) solution for nebulization 2.5 mg inhalation Q6H PRN shortness of breath or wheezing 01/30/23 [History Last Taken 02/06/23] enoxaparin 40 mg/0.4 mL subcutaneous syringe 40 mg (0.4 mL) subcut DAILY 30 days #12 mL 02/11/23 [Rx Last Taken Unknown] hydrocodone-acetaminophen 5-325mg 5mg-325mg 1 tab PO Q6H PRN PRN Pain Score 6-10 3 days #15 tabs 02/11/23 [Rx Last Taken Unknown] levofloxacin 750 mg tablet 750 mg PO DAILY 6 days #6 tabs 02/11/23 [Rx Last Taken Unknown] polyethylene glycol 3350 17 gram oral powder packet 17 g PO BID 7 days #30 ea 02/11/23 [Rx Last Taken Unknown] Allergy/AdvReac Type Severity Reaction Status Date / Time indomethacin [From Indocin] AdvReac Intermediate Itching Verified 03/04/23 20:42 indomethacin sodium AdvReac Intermediate Itching Verified 03/04/23 20:42 [From Indocin] oxycodone HCl [From Percocet] AdvReac Intermediate Itching Verified 03/04/23 20:42 Family History Father Heart disease Colon cancer Sister Diabetes Mother Breast cancer Surgical History H/O hernia repair H/O prostatectomy H/O shoulder surgery H/O total knee replacement History of appendectomy History of appendectomy History of carpal tunnel surgery History of hernia repair History of left heart catheterization (02/25/22) History of prostatectomy History of total knee replacement History of total left hip replacement History of total left hip replacement Social History household members: spouse housing: house Smoking Status: Never smoker second hand exposure: Yes alcohol intake: current alcohol intake frequency: holidays/special occasions only Alcohol type: beer substance use type: does not use caffeine: Yes Type: coffee Number of servings: 2 what type of physical activity do you participate in: walking frequency: daily giancarlo/yazidism: Evangelical seatbelt use: always do you feel safe at home: Yes ROS ROS Narrative Constitutional: Recent hip fracture. No fever. HEENT: Reports systems reviewed and no addt'l complaints, except as documented Respiratory/Chest: No acute shortness of breath or respiratory distress or wheezing. CVS: Recent pacemaker. Had syncope/blackout. Severe aortic stenosis. Gastrointestinal: Mild abdominal distention. Constipation. Although patient had bowel movement today. Mild nausea. Denies abdominal pain. Denies coffee ground emesis, hematemesis or vomiting Genitourinary: Denies burning urination or new urinary tract symptoms Musculoskeletal: Recent hip fracture as described in HPI. Denies acute injury or fall after hip surgery Neurologic: Denies seizure-like symptoms. No acute strokelike symptoms skin: No ulcer. No rash Endocrinology: Reports systems reviewed and no addt'l complaints, except as documented Hematologic/Lymphatic: Reports systems reviewed and no addt'l complaints, except as documented Rest 14 ROS are negative except as mentioned in HPI Vital Signs Vital Signs Vital Signs: 03/04/23 20:40 03/04/23 20:39 Temperature 98.3 F Temperature Source Temporal Pulse Rate 98 97 Respiratory Rate 12 12 Blood Pressure 105/70 120/77 Blood Pressure Mean 81 91 Pulse Ox 96 96 Oxygen Delivery Method Room Air Room Air Weight Weight: 173 lb 15.115 oz Body Mass Index (BMI) 26.4 Physical Exam Narrative General: Alert, Oriented x3, Cooperative HEENT: Atraumatic, PERRLA, EOMI, Normocephalic Oral: Oral mucosa dry. No Gingival or Mucosal Lesions/ Ulcerations Neck: Supple, No JVD, Negative Carotid Bruits Lungs: Air entry diminished in bilateral lung bases. No crepitation/rhonchi Cardiovascular: Regular rate, Regular Rhythm, Normal S1, Normal S2, grade 4/6 ejection systolic murmur most prominent right second ICS. Recent pacemaker. Abdomen: Bowel Sounds Present, Soft, Non Tender, Non-Distended : No renal angle tenderness. No suprapubic tenderness. Extremities: No edema, Capillary Refill Less than 3 Seconds Skin: Mild subcutaneous bruise probably from recent pacemaker Musculoskeletal: No acute tenderness to Palpation of right hip but right hip with shortness compared to left hip. ROM of right hip did not check because of dislocation. Neurological: Cranial nerves II-XII grossly intact, DTR 2+/4. No acute focal neurological deficit. Psych/Mental Status: Normal Affect, Appropriate. Results Radiology Impression Chest X-Ray 03/04/23 21:15 IMPRESSION: No active disease. Electronically Signed: Mauro Pope MD at 21:28 EDT , Assessment & Plan Assessment/Plan (1) Failed fixation of fracture: PLAN: Plan This 82-year-old gentleman found to have interval displacement of fracture of subcapital femoral neck on KUB done for constipation. 1. Postoperative interval displacement of the fracture of the subcapital right femoral neck despite interval placement of percutaneous screws: Patient had hip and pelvis x-ray which shows finding as mentioned. Normal S2 abdomen. Normal hip joint. Orthopedic surgery consult. Currently patient does not have hip pain while laying down. Continue acetaminophen. PT and OT ordered. Patient had percutaneous screw fixation of right femoral neck fracture for right valgus impacted femoral neck fracture on 02/07/2023.Patient was seen by orthopedic surgeon on 02/08 and was advised follow-up in 2 weeks but he did not and follow-up. 2. Constipation most likely due to opioids postop: Patient on MiraLAX 17 g twice daily, senna S2 tablet twice daily. Patient also on magnesium citrate in TCU. Patient had bowel movement today. UA shows colonic distention. Patient also completed Levaquin for suspected pneumonia during recent hospital stay on in February 08 and completed antibiotic in TCU 4. Severe aortic stenosis: Patient follows Dr. Garcia. Patient had cardiac cath on 1922 which shows moderate to severe aortic stenosis with pulmonary hypertension. Nonobstructive coronary arteries. Patient was admitted in January 2023 for syncope due to complete heart block. At that time he was told to follow-up in [facility] for aortic valve replacement/TAVR. 5. Hypothyroidism - Patient is on levothyroxine home dose continued 6. Hypertension - Blood pressure controlled, home medications. Monitor blood pressure and adjust medication accordingly. 7. COPD ? Currently not in exacerbation, continue aerosol treatment as needed 8. Depression ? Patient is on sertraline, continued. 9. DVT prophylaxis ? Continue enoxaparin as he has been after fracture. Living will/advanced directive/end of life care: Patient does have living will or advanced directive. His is power of privacy attorney for health. After discussion of benefits/risks procedures involved with full code, DNR CC arrest and DNR CC, the patient opted for full code. Patient does want artificial life support including intubation, tube feed, ventilator and/chest compression, central venous catheter, vasopressor and DC shock if needed Total time spent in [id number] encounter in discussion of advanced directive 17 minutes. Elements x-ray. IMPRESSION: Interval displacement of fracture of the subcapital femoral neck despite interval placement of 3 percutaneous screws. Charges/Coding Visit Charges Inpatient E&M: 20524 Init Hosp L3 Procedures Hospitalists Procedures: 78933 Advncd Care Plan 30 Min
[2023-03-04 22:39] VITALS: BP 121/74; PULSE 89; RESP 14; O2SAT 98
[2023-03-04 23:35] VITALS: BMI 24.6
[2023-03-04 23:43] VITALS: BP 119/76; PULSE 91; RESP 18; TEMP 36.8; O2SAT 98
[2023-03-04] MEDS: Senna/Docusate Sodium 1 Tablet 2 TABLET PO (23:47)
[2023-03-04] MEDS: Lactated Ringers 1,000 ML 75 ML IV (23:47)
[2023-03-05] VITALS (14 sets, daily range): BP systolic 104–132; BP diastolic 69–81; PULSE 78–95; RESP 14–20; TEMP 36.1–36.9; O2SAT 91–98; BMI 24.6
[2023-03-05] MEDS: Ondansetron 4 MG/2 ML Vial IV ×2 (02:39→14:20)
[2023-03-05] MEDS: Acetaminophen 500 MG Tablet 1000 MG PO (02:39)
[2023-03-05] MEDS: Levothyroxine 75 MCG Tablet PO (02:40)
[2023-03-05 06:49] LABS: Absolute Lymphocyte Count 0.68 X10^3/uL (0.83-4.51); Absolute Neutrophil Count 9.1 X10^3/uL (2.0-7.7); Basophil# 0.02 X10^3/uL; Basophil% 0.2 % (0-1); Eosinophil# 0.05 X10^3/uL; Eosinophils% 0.5 % (0-5); Hematocrit 36.5 % (40-54); Hemoglobin 11.6 g/dL (13.0-16.5); Lymphocyte # 0.68 X10^3/ul (0.83-4.51); Lymphocyte % 6.4 % (19-41); Mean Corp Hgb Conc 31.8 g/dL (32-36); Mean Corpuscular Hgb 28.1 pg (27.0-32.0); Mean Corpuscular Volume 88.4 fL (80-94); Monocyte% 6.6 % (0-10); NRBC Flagged by Analyzer 0 % (0-5); Neutrophil # 9.05 X10^3/uL (2.7-7.7); Neutrophil % 85.3 % (47-70); Platelet Count 346 K/mm3 (150-450); RBC Distribution Width CV 14.5 % (11.6-14.6); RBC Distribution Width SD 46.9 fl (35.1-43.9); Red Blood Count 4.13 M/mm3 (4.6-6.2); White Blood Count 10.6 K/mm3 (4.4-11.0)
[2023-03-05] MEDS: Budesonide Respules 0.5 MG/2 ML AMPUL.NEB. INHALATION ×2 (07:13→21:29)
[2023-03-05] MEDS: Ipratropium/Albuterol Sulfate 3 ML AMPUL.NEB INHALATION ×3 (07:13→21:29)
[2023-03-05 07:28] LABS: Anion Gap 6 (5-15); BUN 51 mg/dL (7-18); BUN/Creat Ratio 31.9 RATIO (10-20); Chloride 103 mmol/L (98-107); EST Glomerular Filtration Rate 44 mL/min (>60); Est Glom Filt Rate - Afr Amer 53 mL/min (>60); Estimated Creatinine Clearance 33.25 ml/min; Glucose 144 mg/dL (74-106); Potassium 4.3 mmol/L (3.5-5.1); Sodium Level 136 mmol/L (136-145)
[2023-03-05] MEDS: Menthol/Lanolin/Calamine/Znox 113 GM Tube 1 APPLIC TOPICAL ×2 (08:39→21:12)
[2023-03-05] MEDS: Bisacodyl 10 MG Suppository RC (08:39)
[2023-03-05] MEDS: Polyethylene Glycol 3350 17 GM PACKET PO (08:39)
[2023-03-05] MEDS: Multivitamins,Therapeutic Tablet 1 TABLET PO (08:39)
[2023-03-05] MEDS: Enoxaparin 40 MG/0.4 ML Syringe SC (08:39)
[2023-03-05] MEDS: Senna/Docusate Sodium 1 Tablet 2 TABLET PO ×2 (08:39→21:12)
[2023-03-05] MEDS: Famotidine 20 MG Tablet PO ×2 (08:39)
[2023-03-05] MEDS: Sertraline 100 MG Tablet PO (08:41)
[2023-03-05] MEDS: Chlorthalidone 50 MG Tablet 25 MG PO (08:41)
--- NOTE | 2023-03-05 08:54 | WOUNDNOTE ---
wound photo: right lateral cota
--- NOTE | 2023-03-05 08:55 | WOUNDNOTE ---
wound photo: left lateral cota
[2023-03-05] MEDS: 0.9% Saline Lock 10 ML Syringe IV ×2 (11:01→14:20)
--- NOTE | 2023-03-05 11:36 | NURSING ---
spouse Lux updated on POC
--- NOTE | 2023-03-05 12:00 | CASEMGMT ---
Addendum entered by Ria Schumacher 03/05/23 16:05: Social Work SW spoke with ortho who indicates pt will go to surgery today. Penelope in TCU updated on plan and pt wishes. MATILDA will follow up with TCU tomorrow after surgery and therapy. AGA Marrero Original Note: Social Work SW spoke with TCU SW and received handoff. Pt had been in TCU and was cut by insurance with last covered day 03/06 and dc planned for 03/07. Pt is was scheduled to go to [facility] private pay on 03/07. MATILDA met with pt and introduced self and role of SW. SW discussed discharge plan with pt. Pt states that if he does need surgery and therefore more rehab, he would like to return to TCU. If surgery is not indicated and therefore skilled level of care not needed, pt will proceed with plan to go to [facility] the acute hospital. SW will await surgery consult for determination of appropriate discharge plan. AGA Marrero
--- NOTE | 2023-03-05 15:24 | CON.PCM.OR_ITS ---
HPI Consult Data Date of Consult: 03/05/23 HPI Narrative Reason for Consultation: Status post percutaneous R hip with subsequent right femoral neck fracture HPI Narrative: CARISSA VANG, is a 82 M who presents to the ER. Patient is status post right percutaneous pinning 02/07/[address] Andrews after having a femoral neck fracture. Patient presented to the ER on 03/04/2023 with issues with constipation. KUB was ordered and there was concern for hip fracture on the x- ray. Pelvis x-rays were obtained and revealed displaced femoral neck fracture with failure of percutaneous pinning. Patient was seen in our office for postop appointment and stated he was having trouble with therapy and rehab due to his knee pain from severe [id number] osteoarthritis in the right knee. Patient received cortisone injection into the right knee at this office visit. X-rays were unable to be performed due to significant transfer limitations. Ordered for TCU. Today patient complains of little to no hip pain. He still complains in plane in his abdomen due to constipation. He states he has been doing the stationary bike and he has been able to complete at least 10 minutes on the bike up until about 2 days or so ago he was only able to do about 2 minutes due to hip pain and feeling unstable. 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, right Diverticulosis Diverticulosis Essential (primary) hypertension Gout Hay fever History of deep vein thrombosis of lower extremity HLD (hyperlipidemia) Hypothyroidism Iron deficiency anemia due to chronic blood loss Left ventricular diastolic dysfunction Leg wound, left Macular degeneration Non-pressure chronic ulcer of left calf with fat layer exposed Nonrheumatic aortic (valve) stenosis Osteoarthritis Pleural plaque Presence of cardiac pacemaker Pulmonary nodule Right knee DJD Secondary pulmonary arterial hypertension Skin cancer Traumatic open wound of right lower leg with infection Venous ulcer with fat layer exposed Home Medications acetaminophen 500 mg tablet 1,000 mg PO BID PRN PRN Pain 12/04/18 [History Last Taken 12/03/18] epinephrine 0.3 mg/0.3 mL injection, auto-injector 0.3 mg IJ PRN PRN Anaphylaxis 12/04/18 [History Last Taken Unknown] multivitamin 1 tab PO QAM vitamin 04/19/19 [History Last Taken 02/06/23] sertraline 100 mg tablet 100 mg PO DAILY mental health #90 tabs 06/10/22 [Rx Last Taken 02/06/23] fluticasone propionate 50 mcg/actuation nasal spray,suspension 2 spray intranasal DAILY allergies #16 grams 06/27/22 [Rx Last Taken Unknown] chlorthalidone 25 mg tablet 25 mg PO DAILY blood pressure #90 tabs 07/08/22 [Rx Last Taken 02/06/23] nystatin-triamcinolone 100,000 unit/g-0.1 % topical cream 1 applic topical BID PRN rash #30 grams 07/25/22 [Rx Last Taken Unknown] levothyroxine 75 mcg tablet 75 mcg PO DAILY thyroid #90 tabs 08/12/22 [Rx Last Taken 02/06/23] fluticasone propionate 230 mcg-salmeterol 21 mcg/actuation HFA inhaler 2 puff inhalation BID breathing #1 device 08/23/22 [Rx Last Taken 02/06/23] tiotropium bromide 2.5 mcg/actuation mist for inhalation (Spiriva Respimat) 2 puff inhalation QDAY breathing #1 ea 08/23/22 [Rx Last Taken 02/06/23] montelukast 10 mg tablet 10 mg PO QPM allergies #30 tabs 09/27/22 [Rx Last Taken 02/06/23] albuterol sulfate 90 mcg/actuation aerosol inhaler 2 puff inhalation Q4H PRN PRN Sob &/Or Wheezing #1 ea 10/29/22 [Rx Last Taken Unknown] ferrous sulfate 325 mg (65 mg iron) tablet (FeroSul) 325 mg PO DAILY iron 11/29/22 [History Last Taken 02/06/23] nitroglycerin 0.4 mg sublingual tablet 0.4 mg sublingual Q5-15M PRN CHEST PAIN #25 tabs 12/02/22 [Rx Last Taken Unknown] famotidine 40 mg tablet 40 mg PO DAILY reflux #90 tabs 01/02/23 [Rx Last Taken 02/06/23] albuterol sulfate 2.5 mg/3 mL (0.083 %) solution for nebulization 2.5 mg inhalation Q6H PRN shortness of breath or wheezing 01/30/23 [History Last Taken 02/06/23] enoxaparin 40 mg/0.4 mL subcutaneous syringe 40 mg (0.4 mL) subcut DAILY 30 days #12 mL 02/11/23 [Rx Last Taken Unknown] hydrocodone-acetaminophen 5-325mg 5mg-325mg 1 tab PO Q6H PRN PRN Pain Score 6-10 3 days #15 tabs 02/11/23 [Rx Last Taken Unknown] levofloxacin 750 mg tablet 750 mg PO DAILY 6 days #6 tabs 02/11/23 [Rx Last Ta rebecca Unknown] polyethylene glycol 3350 17 gram oral powder packet 17 g PO BID 7 days #30 ea 02/11/23 [Rx Last Taken Unknown] Allergy/AdvReac Type Severity Reaction Status Date / Time indomethacin [From Indocin] AdvReac Intermediate Itching Verified 03/04/23 20:42 indomethacin sodium AdvReac Intermediate Itching Verified 03/04/23 20:42 [From Indocin] oxycodone HCl [From Percocet] AdvReac Intermediate Itching Verified 03/04/23 20:42 Family History Father Heart disease Colon cancer Sister Diabetes Mother Breast cancer Surgical History H/O hernia repair H/O prostatectomy H/O shoulder surgery H/O total knee replacement History of appendectomy History of appendectomy History of carpal tunnel surgery History of hernia repair History of left heart catheterization (02/25/22) History of prostatectomy History of total knee replacement History of total left hip replacement History of total left hip replacement Social History household members: spouse housing: house Smoking Status: Never smoker second hand exposure: Yes alcohol intake: current alcohol intake frequency: holidays/special occasions only Alcohol type: beer substance use type: does not use caffeine: Yes Type: coffee Number of servings: 2 what type of physical activity do you participate in: walking frequency: daily giancarlo/roman catholic: Mu-Ism seatbelt use: always do you feel safe at home: Yes Vital Signs Vital Signs Vital Signs: 03/04/23 20:40 03/04/23 20:39 03/04/23 21:56 Temperature 98.3 F Temperature Source Temporal Pulse Rate 98 97 78 Respiratory Rate 12 12 18 Respiratory Effort Respiratory Depth Respiratory Pattern Blood Pressure 105/70 120/77 120/76 Blood Pressure Mean 81 91 90 Blood Pressure Source Blood Pressure Position Blood Pressure Location Pulse Ox 96 96 98 Oxygen Delivery Method Room Air Room Air 03/04/23 22:39 03/04/23 23:43 03/04/23 23:22 Temperature 98.2 F Temperature Source Oral Pulse Rate 89 91 Respiratory Rate 14 18 Respiratory Effort Normal Non-Labored Respiratory Depth Normal Respiratory Pattern Normal Blood Pressure 121/74 H 119/76 Blood Pressure Mean 89 90 Blood Pressure Source Monitor Blood Pressure Position Semi-Fowlers Blood Pressure Location Left Arm Pulse Ox 98 98 Oxygen Delivery Method Room Air Room Air Room Air 03/05/23 02:52 03/05/23 02:50 03/05/23 07:13 Temperature 98 F Temperature Source Oral Pulse Rate 89 83 Respiratory Rate 18 16 Respiratory Effort Normal Non-Labored Respiratory Depth Normal Respiratory Pattern Normal Normal Blood Pressure 119/81 H Blood Pressure Mean 93 Blood Pressure Source Monitor Blood Pressure Position Semi-Fowlers Blood Pressure Location Left Forearm Pulse Ox 93 Oxygen Delivery Method Room Air Room Air 03/05/23 07:13 03/05/23 08:21 03/05/23 13:22 Temperature 98.5 F Temperature Source Oral Pulse Rate 89 78 Respiratory Rate 18 20 H Respiratory Effort Respiratory Depth Respiratory Pattern Normal Blood Pressure 127/81 H Blood Pressure Mean 96 Blood Pressure Source Monitor Blood Pressure Position Semi-Fowlers Blood Pressure Location Left Arm Pulse Ox 92 96 Oxygen Delivery Method Room Air Room Air 03/05/23 14:14 03/05/23 14:18 Temperature 98.3 F Temperature Source Oral Pulse Rate 90 Respiratory Rate 18 Respiratory Effort Normal Respiratory Depth Respiratory Pattern Blood Pressure 126/71 H Blood Pressure Mean 89 Blood Pressure Source Monitor Blood Pressure Position Semi-Fowlers Blood Pressure Location Right Arm Pulse Ox 94 Oxygen Delivery Method Room Air Weight Weight: 73.527 kg Body Mass Index (BMI) 24.6 Physical Exam Narrative Patient resting comfortably in bed No signs of acute distress Satting well on room air There is external rotation of left hip at rest. Limb is warm to touch, Sensation intact throughout entire lower extremity, including saphenous, sural, superficial and deep peroneal, and tibial distribution. DP/PT pulses bounding. skin dry, intact. no abrasions/ lacerations. Calf nontender to palpation, no erythema, no edema. Negative Homans able to wiggle does. Medical Records Data Medical Nutrition Assessment Dietitian: Malnutrition Criteria Met Start: 03/05/23 14:14 Freq: Status: Active Protocol: Document 03/05/23 14:14 RMA (Rec: 03/05/23 14:16 RMA [id number]) Nutrition Malnutrition Evidence of Malnutrition Exists Yes Malnutrition (severe): Chronic Evidenced By Suboptimal Energy Intake ( Severe),Weight Loss (Severe) Clinical Problem Chronic Disease or Condition Related Malnutrition Etiology Severe protein-calorie malnutrition in the context of chronic disease and debility related to inadequate oral intake and difficulty chewing Signs/Symptoms as evidenced by ~10% weight loss x 2 months and PO meeting less than 50% estimated nutrition needs x 2 months Status Active Problem Recommendation Dietitian Recommendations/Changes Will liberalize diet to regular/no added salt given CKD; consistency/texture as per PUMP AND STILL OPERATOR. Will add ensure compact TID w/ meals. Consider PUMP AND STILL OPERATOR evaluation for reported chewing difficulty. Additional ONS as needed. Monitor renal labs and need for further diet restrictions. Lab / Micro Data 03/05/23 06:15 03/05/23 06:15 Labs: Laboratory Results - last 24 hr 03/05/23 06:15: WBC 10.6, RBC 4.13 L, Hgb 11.6 L, Hct 36.5 L, MCV 88.4, MCH 28.1, MCHC 31.8 L, RDW Std Deviation 46.9 H, RDW Coeff of John 14.5, Plt Count 346, MPV 10.0, Immature Gran % (Auto) 1.000 H, Neut % (Auto) 85.3 H, Lymph % (Auto) 6.4 L, Cascade % (Auto) 6.6, Eos % (Auto) 0.5, Baso % (Auto) 0.2, Absolute Neuts (auto) 9.1 H, Absolute Lymphs (auto) 0.68 L, Nucleated RBC % 0, Sodium 1 36, Potassium 4.3, Chloride 103, Carbon Dioxide 27.0, Anion Gap 6, BUN 51 H, Creatinine 1.60 H, Estim Creat Clear Calc 33.25, Est GFR (MDRD) Af Amer 53 L, Est GFR (MDRD) Non-Af 44 L, BUN/Creatinine Ratio 31.9 H, Glucose 144 H, Calcium 9.0 Radiology Impression Chest X-Ray 03/04/23 21:15 IMPRESSION: No active disease. Electronically Signed: Mauro Pope MD at 21:28 EDT , Assessment & Plan Assessment/Plan (1) Failed fixation of fracture: (2) Closed hip fracture: PLAN: Plan Right femoral neck fracture status post percutaneous pinning right hip. 1. Dr. Tristan consulted and reviewed imaging. 2. Acute surgical intervention required. Hemiarthroplasty right hip versus total hip arthroplasty. 3. additional recs post operatively. will return to floor.
--- NOTE | 2023-03-05 15:25 | PN.HOSP_ITS ---
Subjective Subjective Patient seen at bedside this morning. Laying comfortably in bed, was asleep on my arrival to the room. Alert but fatigued appearing, answering questions appropriately, no acute distress. Denies any hip pain at rest currently. Has not worked with therapy at this morning. Patient reports having small bowel movement since arrival to the floor overnight, abdomen still feels mildly distended but improved from last few days. Has not tried eating yet this morning. He otherwise denies any fevers or chills. Denies any other acute pain or discomfort. No other acute concerns this morning. Objective Data Objective Data Vital Signs: Vital Signs Temp Pulse Resp BP Pulse Ox O2 Del Method 98.3 F 90 18 126/71 H 94 Room Air 03/05/23 14:14 03/05/23 14:14 03/05/23 14:14 03/05/23 14:14 03/05/23 14:14 03/05/23 14:14 Oxygen Delivery Method Room Air Weight: 73.527 kg Body Mass Index (BMI) 24.6 Intake & Output: Intake and Output for Last 24 Hours 03/03/23 03/04/23 03/05/23 23:59 23:59 23:59 Intake Total 963.75 / 963.75 Output Total 500 / 500 Balance 463.75 / 463.75 Medical Nutrition Assessment Dietitian: Malnutrition Criteria Met Start: 03/05/23 14:14 Freq: Status: Active Protocol: Document 03/05/23 14:14 RMA (Rec: 03/05/23 14:16 RMA [id number]) Nutrition Malnutrition Evidence of Malnutrition Exists Yes Malnutrition (severe): Chronic Evidenced By Suboptimal Energy Intake ( Severe),Weight Loss (Severe) Clinical Problem Chronic Disease or Condition Related Malnutrition Etiology Severe protein-calorie malnutrition in the context of chronic disease and debility related to inadequate oral intake and difficulty chewing Signs/Symptoms as evidenced by ~10% weight loss x 2 months and PO meeting less than 50% estimated nutrition needs x 2 months Status Active Problem Recommendation Dietitian Recommendations/Changes Will liberalize diet to regular/no added salt given CKD; consistency/texture as per CONTROL ROOM TENDER. Will add ensure compact TID w/ meals. Consider CONTROL ROOM TENDER evaluation for reported chewing difficulty. Additional ONS as needed. Monitor renal labs and need for further diet restrictions. Lab / Micro Data 03/05/23 06:15 03/05/23 06:15 Labs: Laboratory Results - last 24 hr 03/05/23 06:15: WBC 10.6, RBC 4.13 L, Hgb 11.6 L, Hct 36.5 L, MCV 88.4, MCH 28.1, MCHC 31.8 L, RDW Std Deviation 46.9 H, RDW Coeff of John 14.5, Plt Count 346, MPV 10.0, Immature Gran % (Auto) 1.000 H, Neut % (Auto) 85.3 H, Lymph % (Auto) 6.4 L, Yates % (Auto) 6.6, Eos % (Auto) 0.5, Baso % (Auto) 0.2, Absolute Neuts (auto) 9.1 H, Absolute Lymphs (auto) 0.68 L, Nucleated RBC % 0, Sodium 136, Potassium 4.3, Chloride 103, Carbon Dioxide 27.0, Anion Gap 6, BUN 51 H, Creatinine 1.60 H, Estim Creat Clear Calc 33.25, Est GFR (MDRD) Af Amer 53 L, Est GFR (MDRD) Non-Af 44 L, BUN/Creatinine Ratio 31.9 H, Glucose 144 H, Calcium 9.0 Radiography Diagnostic Testing: Radiology Impression Chest X-Ray 03/04/23 21:15 IMPRESSION: No active disease. Electronically Signed: Mauro Poep MD at 21:28 EDT , Physical Exam Const alert, oriented x3 and no apparent distress Constitutional Narrative: Pleasant elderly male, lying comfortably in bed, conversing normally, no acute distress. General Appearance: cooperative and comfortable HEENT normocephalic, head/scalp atraumatic, hearing grossly normal bilaterally, nasal mucous membranes and turbinates normal and moist oral mucous membranes Eyes PERRL, EOMs intact bilaterally and conjunctivae normal Neck full ROM, no lymphadenopathy and supple Lymph Lymphatic: no lymphadenopathy noted Chest inspection of chest normal Resp normal respiratory effort, normal air movement, no use of accessory muscles and clear to auscultation bilaterally Cardio regular rate, regular rhythm, no murmurs and peripheral pulses 2+ throughout GI GI Narrative: Mild abdominal distention, soft, nontender to palpation. Back/Spine normal ROM Extremity Extremity Narrative: Right hip appears grossly normal on exam, did not palpate or attempt any range of motion. Skin no rashes or lesions noted Psych mental status grossly normal Assessment & Plan Assessment/Plan (1) Failed fixation of fracture: PLAN: Plan Patient is an 82-year-old male with history of COPD, hypertension, aortic stenosis, depression, hypothyroidism and recent right hip fracture with repair who presented to [facility] ED on 03/04/2023 with constipation and incidental finding of displacement of recently repaired right hip fracture on abdominal imaging. 1. Postoperative interval displacement of right femoral neck fracture, debility S/p percutaneous screw fixation of right femoral neck fracture on 02/07/2023 with orthopedic surgery. Notably was advised to follow-up 2 weeks postprocedure but did not go to follow-up appointment. KUB on 03/04 done for concern for constipation incidentally showed right subcapital fracture with cephalic displacement of the distal fracture fragment and screw fixation device. Hip/pelvic x-ray in ED on 03/04 showed interval displacement of fracture of the subcapital femoral neck despite interval placement of 3 percutaneous screws. Patient notably denies any significant hip pain with mobility, denies any concerning movements or events recently. ? Orthopedic surgery consulted. PT/OT/case management consulted. Patient notably was discharged to TCU after hospitalization for hip fracture, then went home. Plan apparently was for placement in [facility] facility for further rehabilitation. Hopeful for discharge to [facility] when medically appropriate. 2. Constipation, improving Likely secondary to opiate use postoperatively. Appears that patient was on MiraLAX twice daily and senna twice daily, as well as magnesium citrate in the TCU. Unclear if he was having regular bowel movements. Patient notably did have a bowel movement prior to admission, as well as another small bowel movement on 03/05. KUB on 03/04 did show colonic distention, no concern for SBO. ? Continue scheduled MiraLAX, senna. We will give 3 doses of Dulcolax suppositories daily. Monitor bowel movements. Chronic medical conditions: ? Aortic stenosis: Follows with Dr. Garcia. Recent cardiac cath showed moderate to severe aortic stenosis with pulm hypertension, nonobstructive coronary arteries. Notably was hospitalized last month for syncope due to complete heart block, was told at that time to follow-up in [place] for TAVR placement. ? Hypothyroidism: Continue home levothyroxine. ? Hypertension: Continue home chlorthalidone. ? Depression: Continue home sertraline. ? COPD: Continue home Spiriva, albuterol as needed. DVT prophylaxis: Lovenox CODE STATUS: Full code, verified Expected disposition: SNF, TBD Total clinical time spent by myself addressing the patient's medical issues, reviewing all the data, and collaborating with patient's care team: 35 minutes. Charges/Coding Visit Charges Inpatient E&M: 55955 Subs Hosp L2
--- NOTE | 2023-03-05 15:30 | HIP_PTH ---
PATIENT: CARISSA VANG LOC: MS3 U#:[id number] AGE/SX: 82/M ROOM: NV313 RE03/04/[address]: Dr. Darius Ceballos DO : 1940 BED: 1 DIS: 03/10/2023 SPEC #: [id number] RECD: 03/05/23 18:54 STATUS: ABDI REBronwyn #: [id number] ABDIEL: 03/05/23 15:[address]: Stanley Tristan DEPT: SURGICAL PATHOLOGY RECD BY: Sabra Marie ENTERED: 03/06/23 09:50 SP TYPE: TOTAL HIP OTHR DR: DO Dr. Angelique Riggs MD Dr. Prakash Chand, MD Dr. Steven Widmer, MD Tissues: Hip, NOS Procedures: Decalcification bone/plaque Surgery Specimen Level IV Comments: @ Ordering doctor for DEC edited from to DR.SWIDME Gigi BABB at 03/06/23 1515 @ Ordering doctor for SUIV edited from to @ by HOLLEY at 03/06/23 1515 @ Submitting doctor edited from to DR.SWIDME Yu by HOLLEY at 03/06/23 1515 HEADER OPERATION: Removal of right hip hardware, conversion of previous hip PRE-OP DIAGNOSIS: Failed fixation of fracture TISSUE SUBMITTED: Right hip bone and tissue MICROSCOPIC DIAGNOSIS Bone and tissue of right hip, total hip resection: Organizing fracture callus. AM:madison 03/12/2023 MICROSCOPIC DESCRIPTION Slides are reviewed. GROSS DESCRIPTION Received is one container labeled with the patient's name and designated right hip bone and tissue. The specimen consists of a meier femoral head measuring 5.5 x 5.0 x 3.5 cm. The articular surface is smooth. Resection margin is irregular and hemorrhagic. Also present in the specimen container are multiple detached pieces of bone measuring in aggregate 4.0 x 5.0 x 2.0 cm. No soft tissue identified. Needle Polisher sections are submitted in two cassettes after decalcification as follows: 1 - detached pieces of bone, 3 - femoral head. / RAYSA:madison 03/06/2023 TC:5 CPT: 58487, 29219
[2023-03-05 16:00] LABS: Color, Urine Yellow (Yellow); Glucose, Dipstick Normal (Normal); Ketone-Dipstick Negative (Negative); Urine Bilirubin Dipstick Negative (Negative); Urine Clarity Clear (Clear)
[2023-03-05 16:01] LABS: Leukocyte Esterase-Dipstick 25 /ul (Negative); Nitrite-Dipstick Negative (Negative); Occult Blood-Urine Negative /ul (Negative); Protein-Dipstick Negative (Negative); Urine Urobilinogen Normal (Normal)
[2023-03-05] MEDS: Lactated Ringers 1,000 ML 15 ML IV (16:17)
[2023-03-05] MEDS: Cefazolin 2 GM in 0.9% Normal Saline (100mL Bag) 100 ML IV (16:42)
[2023-03-05] MEDS: TXA in NS 100ml (Placed in Wound) OPERA.SITE (17:57)
[2023-03-05] MEDS: Joint Pain Solution (NO KETOROLAC) IV (18:04)
--- NOTE | 2023-03-05 18:10 | PCM.OPRPT ---
Report of Operation Date of Procedure: 03/05/23 Pre-Operative Diagnosis: Displaced right femoral neck fracture, failed percutaneous pinning Post-Operative Diagnosis: Displaced right femoral neck fracture, failed percutaneous pinning Surgery/Procedure Performed:: 1. Removal of hardware right hip 2. Right hip hemiarthroplasty Description of Surgical Findings:: 3 screws were removed. Stable hip. Surgeon: Stanley Tristan radio machinist: Cameron Moctezuma Type of Anesthesia: General Anesthesiologist: Jacky Edward Special Medications: Ancef Specimen's removed: Femoral head Estimated Blood Loss (mL): 300 Fluids Replaced: 1000 L crystalloid Description of Procedure: Findings: Adequate reduction with stability of the hip and equal leg lengths measured intraoperatively. Components used: 1. [place] insignia size 6 high offset stem 2. Saeed cobalt-chromium Unitrax femoral head, 49 mm with +4 mm sleeve Brief history operative indications: 82-year-old male who failed closed duction percutaneous pinning. Presented emergency department with displacement of the fracture. Socket remained stable. We did discuss total hip versus hemiarthroplasty. Risks and benefits were discussed with the patient which included but were not limited to blood loss, DVTs, PEs, infection, neurovascular damage, and dislocation. In light of all this patient did agree to proceed with a hemiarthroplasty. In the event patient had significant acetabular damage due to the screws he did consent to proceed with a total hip arthroplasty. Procedure: On the date of procedure the patient's R hip was marked in the preoperative area. Patient was then taken back to the operating room where anesthesia assumed control of the C-spine and airway and administered anesthetic. Patient was transferred to the operating table and placed in the lateral decubitus position with the affected hip up. The patient was secured in the bed with the lateral positioners and leg lengths were checked. The R lower extremity was then prepped out in a sterile fashion using chlorhexidine while the surgeon scrubbed. Upon reentering the room the R lower extremity was draped in the standard orthopedic fashion and the incision was marked. A timeout was called and everyone agreed upon the side, the site, the procedure be performed, antibiotics given, and patient's identity. At this time incision was made through skin, subcutaneous tissue, and fat down to fascia. The fascia was then incised and a Charley retractor was placed. The soft tissue was then cleared from the posterior external rotators and the piriformis was identified. At this point we then directed our attention to the greater trochanter where the screws from the percutaneous pinning were placed. A screwdriver was used to remove them and the washers. All 3 screws and all 3 washers were removed. Attention was then directed back towards the approach. Piriformis was taken down and tagged. The remainder of the short external rotators were taken down. Capsulotomy was made and the posterior capsule was tagged. The retractors were then placed inside the capsule. The femoral neck was identified and a cleanup cut was made. At this time a power corkscrew was used to remove the femoral head. At this time all bony debris was removed from the acetabulum and the acetabulum was copiously irrigated out with normal saline.. Attention was then turned to the femur where the proximal femur was appropriately exposed using a che retractor. The box person was used to remove the lateral bone. Canal finder was used to verify the canal. The proximal femoral femur was then sequentially broached to a size 6 broach which had an appropriate fit and the calcar neck was reamed down. The broach was left in place. The high offset neck was chosen and a 49 mm head with 4 mm offset was trialed. The hip was properly reduced using traction and external rotation. Stability was checked with the appropriate amount of shuck, no impingement the hip was dislocated and the trial components were removed the final components were verified and opened. The wound was copiously irrigated out with normal saline. The acetabulum was checked for any residual debris. The final components were placed and impacted. Traction and external rotation were again used to reduce the hip. After adequate reduction the hip remained stable with appropriate leg lengths. The wound was lavaged with a dilute Betadine lavage for 3 minutes while we repaired the capsule. The piriformis due to the previous limb shortening could not be repaired without excessive tension. We then lavaged out the joint with a 1 minute TXA solution and 1 minute Irrisept solution lavage, finally we then copiously irrigated with normal saline once more, and hemostasis was obtained. Closure was then done using #1 Vicryl to close the fascia. A 2-0 Vicryl interrupted sutures were used to close the subcutaneous skin. Skin tayla were used for final skin closure. A sterile dressing was placed. Patient was awakened by anesthesia and transferred to [facility]. Patient was then transferred to the PACU for recovery. Postoperative plan: Patient will get 24 hours postop antibiotics. Patient will get in-house physical therapy and will be weight-bear as tolerated. Patient will follow up in office in 2 weeks for a wound check and x-rays. Patient has a history of VTE should resume his Lovenox tomorrow. Would be a candidate to be discharged on direct oral anticoagulation. Complications No intraoperative complications Admit VTE Documentation VTE Present on Admission: No VTE Mechan Device Prophylaxis: SCD's and Thigh High FRIDA Hose VTE Pharm Prophylaxis ordered?: Yes
--- NOTE | 2023-03-05 19:20 | RAD_ITS ---
STUDY: X-RAY - PELVIS AND RIGHT HIP REASON FOR EXAM: Male, 82 years old. Post Op -- AP both hips on single richa/lateral of op hip PACU TECHNIQUE: Portable views of the pelvis and hip. COMPARISON: None. FINDINGS: Bilateral hip prostheses are noted in anatomic alignment and position... No acute hip or pelvic fracture RAD/Hip Min 2 Views (Portable) IMPRESSION: Stable appearance to bilateral hip prostheses Electronically Signed: Chapo Samuel MD at 20:04 EDT ,
[2023-03-05] MEDS: Cefazolin 1 GM/50 ML BAG IV (21:12)
[2023-03-05] MEDS: Montelukast 10 MG Tablet PO (21:12)
[2023-03-06] VITALS (10 sets, daily range): BP systolic 87–122; BP diastolic 52–74; PULSE 77–100; RESP 16–20; TEMP 36.3–36.8; O2SAT 86–100; BMI 24.6
[2023-03-06] MEDS: Cefazolin 1 GM/50 ML BAG IV (05:38)
[2023-03-06] MEDS: Levothyroxine 75 MCG Tablet PO (05:39)
[2023-03-06] MEDS: Ipratropium/Albuterol Sulfate 3 ML AMPUL.NEB INHALATION ×3 (06:41→19:35)
[2023-03-06] MEDS: Budesonide Respules 0.5 MG/2 ML AMPUL.NEB. INHALATION ×2 (06:41→19:35)
[2023-03-06 08:25] LABS: Hematocrit 31.9 % (40-54); Hemoglobin 10.1 g/dL (13.0-16.5); Mean Corp Hgb Conc 31.7 g/dL (32-36); Mean Corpuscular Hgb 28.6 pg (27.0-32.0); Mean Corpuscular Volume 90.4 fL (80-94); Mean Platelet Vol. 9.1 fl (6.2-12.0); Platelet Count 274 K/mm3 (150-450); RBC Distribution Width CV 14.6 % (11.6-14.6); RBC Distribution Width SD 48.1 fl (35.1-43.9); Red Blood Count 3.53 M/mm3 (4.6-6.2); White Blood Count 12.4 K/mm3 (4.4-11.0)
--- NOTE | 2023-03-06 08:46 | CASEMGMT ---
Met with patient to complete YU form. YU form explained to patient who voiced understanding and signed form. Original form placed in pt?s chart and copy provided to patient. Jennifer Juan, Discharge Planning Asst.
[2023-03-06 08:53] LABS: Anion Gap 7 (5-15); BUN 51 mg/dL (7-18); BUN/Creat Ratio 26.6 RATIO (10-20); Calcium,Total 8.5 mg/dL (8.5-10.1); Chloride 102 mmol/L (98-107); Creatinine, Serum 1.92 mg/dL (0.70-1.30); EST Glomerular Filtration Rate 36 mL/min (>60); Est Glom Filt Rate - Afr Amer 43 mL/min (>60); Estimated Creatinine Clearance 27.71 ml/min; Glucose 171 mg/dL (74-106); Potassium 4.5 mmol/L (3.5-5.1); Sodium Level 136 mmol/L (136-145)
[2023-03-06] MEDS: Multivitamins,Therapeutic Tablet 1 TABLET PO (09:16)
[2023-03-06] MEDS: Menthol/Lanolin/Calamine/Znox 113 GM Tube 1 APPLIC TOPICAL ×2 (09:16→22:30)
[2023-03-06] MEDS: Enoxaparin 40 MG/0.4 ML Syringe SC (09:17)
[2023-03-06] MEDS: Senna/Docusate Sodium 1 Tablet 2 TABLET PO ×2 (09:18→22:29)
[2023-03-06] MEDS: Polyethylene Glycol 3350 17 GM PACKET PO ×2 (09:18→22:29)
[2023-03-06] MEDS: Sertraline 100 MG Tablet PO (09:18)
[2023-03-06] MEDS: Chlorthalidone 50 MG Tablet 25 MG PO (09:19)
[2023-03-06] MEDS: Bisacodyl 10 MG Suppository RC (09:50)
--- NOTE | 2023-03-06 10:57 | CASEMGMT ---
Social Work SW met with pt to discuss discharge plan. Pt had surgery yesterday and PT/OT evals this morning and skilled therapy is recommended. SW met with pt who confirms he would like to return to TCU for rehab. Precert will be needed from insurance company. Penelope in TCU updated and they are able to accept pt. Plan: TCU, pending precert [facility]
--- NOTE | 2023-03-06 11:27 | PN.ORTHO_ITS ---
Subjective Subjective Patient is s/p right hemiarthroplasty done by Dr. Tristan yesterday 03/05/2023, after having subcapital femoral neck fracture status post percutaneous pinning with Dr. Andrews on 02/07/2023. Patient resting comfortably in bed. Rates pain 1/ 10 at rest. With movement 6/10. States taking Tylenol as needed and ice help to relieve pain. Patient has been up with therapy. Walking with the assit of a walker. Afebrile, no chest pain, shortness of breath, negative calf pain/ erythema, and no other signs of DVT. Objective Data Objective Data Vital Signs: Vital Signs Temp Pulse Resp BP Pulse Ox O2 Del Method O2 Flow Rate 98 F 95 16 106/56 L 94 Nasal Cannula 2 03/06/23 08:05 03/06/23 08:05 03/06/23 08:05 03/06/23 08:05 03/06/23 08:05 03/06/23 08:05 03/06/23 09:31 Oxygen Flow Rate (L/min) 2 Oxygen Delivery Method Nasal Cannula Weight: 73.527 kg Body Mass Index (BMI) 24.6 Intake & Output: Intake and Output for Last 24 Hours 03/04/23 03/05/23 03/06/23 23:59 23:59 23:59 Intake Total 1123.75 / 1373.75 580 / 580 Output Total 510 / 510 200 / 200 Balance 613.75 / 863.75 380 / 380 Medical Nutrition Assessment Dietitian: Malnutrition Criteria Met Start: 03/05/23 14:14 Freq: Status: Active Protocol: Document 03/05/23 14:14 RMA (Rec: 03/05/23 14:16 RMA [id number]) Nutrition Malnutrition Evidence of Malnutrition Exists Yes Malnutrition (severe): Chronic Evidenced By Suboptimal Energy Intake ( Severe),Weight Loss (Severe) Clinical Problem Chronic Disease or Condition Related Malnutrition Etiology Severe protein-calorie malnutrition in the context of chronic disease and debility related to inadequate oral intake and difficulty chewing Signs/Symptoms as evidenced by ~10% weight loss x 2 months and PO meeting less than 50% estimated nutrition needs x 2 months Status Active Problem Recommendation Dietitian Recommendations/Changes Will liberalize diet to regular/no added salt given CKD; consistency/texture as per HOME FURNISHINGS SALES REPRESENTATIVE. Will add ensure compact TID w/ meals. Consider HOME FURNISHINGS SALES REPRESENTATIVE evaluation for reported chewing difficulty. Additional ONS as needed. Monitor renal labs and need for further diet restrictions. Lab / Micro Data 03/06/23 08:15 03/06/23 08:15 Labs: Laboratory Results - last 24 hr 03/05/23 14:55: Urine Color Yellow, Urine Clarity Clear, Urine pH 5.0, Ur Specific [place] 1.020, Urine Protein Negative, Urine Glucose (UA) Normal, Urine Ketones Negative, Urine Occult Blood Negative, Urine Nitrite Negative, Urine Bilirubin Negative, Urine Urobilinogen Normal, Ur Leukocyte Esterase 25 H 03/06/23 08:15: WBC 12.4 H, RBC 3.53 L, Hgb 10.1 L, Hct 31.9 L, MCV 90.4, MCH 28.6, MCHC 31.7 L, RDW Std Deviation 48.1 H, RDW Coeff of John 14.6, Plt Count 274, MPV 9.1, Sodium 136, Potassium 4.5, Chloride 102, Carbon Dioxide 27.0, Anion Gap 7, BUN 51 H, Creatinine 1.92 H, Estim Creat Clear Calc 27.71, Est GFR (MDRD) Af Amer 43 L, Est GFR (MDRD) Non-Af 36 L, BUN/Creatinine Ratio 26.6 H, Glucose 171 H, Calcium 8.5 Radiography Diagnostic Testing: Radiology Impression Hip X-Ray 03/05/23 19:20 IMPRESSION: Stable appearance to bilateral hip prostheses Electronically Signed: Chapo Samuel MD at 20:04 EDT Reading Location ID and State: [facility] / [place] Tel , Service support , Physical Exam Narrative Patient resting comfortably in bed No signs of acute distress Satting well on room air Limb is warm to touch, Sensation intact throughout entire lower extremity, including saphenous, sural, superficial and deep peroneal, and tibial distribution. DP/PT pulses bounding. Dorsiflexion/plantarflexion strength 5/5 Dressing clear dry intact Calf nontender to palpation, no erythema, no edema. Negative Homans Assessment & Plan Assessment/Plan (1) Failed fixation of fracture: (2) Status post hip hemiarthroplasty: PLAN: Status post right hip hemiarthroplasty Dr. Tristan 03/05/2023 1. Will continue PT today. Weightbearing as tolerated 2. Discharge per primary when medically cleared. From an orthopedic standpoint, implants are stable and patient up with therapy. 3. Patient will follow up for post op appointment in 2 weeks in our office. 4. WBC 12.4 acute reactive leukocytosis: secondary to pre operative decadron. no acute systemic signs of infection. will monitor, and likely self resolve. 5. H/H 10.1/31.9: post operavtive anemia secondary to acute blood loss intraoperatively. Patient is asymptomatic at this time. No intraoperative complications. will continue to monitor. no acute interventions. 6. DVT prophylaxis : Lovenox while in-house, okay to continue if needing to. Overall 4 weeks DVT prophylaxis from an orthopedic standpoint.. If transition to oral anticoagulation upon discharge recommend Xarelto 10 mg once daily for the first 2 weeks postoperatively. Followed by aspirin 81 mg twice daily x2 weeks. If patient cannot tolerate aspirin would recommend Xarelto 10 mg once daily for the full 4 weeks. 7. Pain control: patient instructed to take tylenol 500mg 2 tablets TID. and oxycodone 1-2 tablets every 4-6 hours only as needed for pain control. 8. ok to remove post op dressing. post op day 5
[2023-03-06] MEDS: Ferrous Sulfate 325 MG Tablet PO (11:58)
--- NOTE | 2023-03-06 12:18 | CHAPLAIN ---
Type of Pastoral Visit ___ Initial Visit _x__ Follow-up Visit ___ On-call Visit ___ General Patient Visit ___ Spiritual Assessment ___ Family Conference ___ Bereavement ___ Rapid Response ___ Code Blue ___ Other (describe below) Pastoral Care Referral From _x__ Patient ___ Family ___ Nurse ___ Physician ___ Administrative Support Associate ___ Instructional Material Director ___ Other (describe below) Sacrament/Intervention _x__ Active listening ___ Anointing ___ Orthodoxy ___ Bereavement ___ Communion ___ Galina exploration ___ ___ Life review _x__ Prayer ___ Reconciliation ___ Sacrament of Sick _x__ Supportive presence ___ Wedding ___ Other (describe below) Pastoral Comments patient has been seen previously during several different scenarios of health needs and surgery; pt asks for some help to rearrange items on his tray; pt presents with good attitude about accepting his situation and learning to go with what life deals; pt is person of galina and welcomes prayer for support
--- NOTE | 2023-03-06 15:06 | PN.HOSP_ITS ---
Reason for Visit Reason for Visit: Diagnoses Fracture of unspecified part of neck of unspecified femur, initial encounter for closed fracture (03/04/23) Subjective Subjective Patient seen at bedside this morning. Was sitting comfortably in bedside chair, appears fatigued but was conversing normally, in no acute distress. Patient notably tolerated his total right hip replacement yesterday afternoon well. Has had no postoperative complications since then. He currently reports mild right hip pain, states pain medications have been helpful for him. Was able to get out of bed and into the bedside chair with assistance this morning with only mild pain. He does report mild abdominal distention but denies any nausea or vomiting. Has not tried eating since his procedure and does not feel hungry this morning. Denies any fevers or chills. No other acute concerns currently. Objective Data Objective Data Vital Signs: Vital Signs Temp Pulse Resp BP Pulse Ox O2 Del Method O2 Flow Rate 97.8 F 90 16 122/74 H 97 Room Air 2 03/06/23 09:30 03/06/23 12:34 03/06/23 12:34 03/06/23 09:30 03/06/23 12:34 03/06/23 12:34 03/06/23 09:31 Oxygen Flow Rate (L/min) 2 Oxygen Delivery Method Room Air Weight: 73.527 kg Body Mass Index (BMI) 24.6 Intake & Output: Intake and Output for Last 24 Hours 03/04/23 03/05/23 03/06/23 23:59 23:59 23:59 Intake Total 1123.75 / 1373.75 820 / 820 Output Total 510 / 510 200 / 200 Balance 613.75 / 863.75 620 / 620 Medical Nutrition Assessment Dietitian: Malnutrition Criteria Met Start: 03/05/23 14:14 Freq: Status: Active Protocol: Document 03/05/23 14:14 RMA (Rec: 03/05/23 14:16 RMA [id number]) Nutrition Malnutrition Evidence of Malnutrition Exists Yes Malnutrition (severe): Chronic Evidenced By Suboptimal Energy Intake ( Severe),Weight Loss (Severe) Clinical Problem Chronic Disease or Condition Related Malnutrition Etiology Severe protein-calorie malnutrition in the context of chronic disease and debility related to inadequate oral intake and difficulty chewing Signs/Symptoms as evidenced by ~10% weight loss x 2 months and PO meeting less than 50% estimated nutrition needs x 2 months Status Active Problem Recommendation Dietitian Recommendations/Changes Will liberalize diet to regular/no added salt given CKD; consistency/texture as per KILN CAR REPAIRER. Will add ensure compact TID w/ meals. Consider KILN CAR REPAIRER evaluation for reported chewing difficulty. Additional ONS as needed. Monitor renal labs and need for further diet restrictions. Lab / Micro Data 03/06/23 08:15 03/06/23 08:15 Labs: Laboratory Results - last 24 hr 03/05/23 14:55: Urine Color Yellow, Urine Clarity Clear, Urine pH 5.0, Ur Specific [place] 1.020, Urine Protein Negative, Urine Glucose (UA) Normal, Urine Ketones Negative, Urine Occult Blood Negative, Urine Nitrite Negative, Urine Bilirubin Negative, Urine Urobilinogen Normal, Ur Leukocyte Esterase 25 H 03/06/23 08:15: WBC 12.4 H, RBC 3.53 L, Hgb 10.1 L, Hct 31.9 L, MCV 90.4, MCH 28.6, MCHC 31.7 L, RDW Std Deviation 48.1 H, RDW Coeff of John 14.6, Plt Count 274, MPV 9.1, Sodium 136, Potassium 4.5, Chloride 102, Carbon Dioxide 27.0, Anion Gap 7, BUN 51 H, Creatinine 1.92 H, Estim Creat Clear Calc 27.71, Est GFR (MDRD) Af Amer 43 L, Est GFR (MDRD) Non-Af 36 L, BUN/Creatinine Ratio 26.6 H, Glucose 171 H, Calcium 8.5 Radiography Diagnostic Testing: Radiology Impression Hip X-Ray 03/05/23 19:20 IMPRESSION: Stable appearance to bilateral hip prostheses Electronically Signed: Chapo Samuel MD at 20:04 EDT , Physical Exam Const alert, oriented x3 and no apparent distress Constitutional Narrative: Pleasant elderly male, sitting comfortably in bedside chair, appears fatigued but conversing normally, no acute distress. General Appearance: cooperative and comfortable HEENT normocephalic, head/scalp atraumatic, hearing grossly normal bilaterally, nasal mucous membranes and turbinates normal and moist oral mucous membranes Eyes PERRL, EOMs intact bilaterally and conjunctivae normal Neck full ROM, no lymphadenopathy and supple Lymph Lymphatic: no lymphadenopathy noted Chest inspection of chest normal Resp normal respiratory effort, normal air movement, no use of accessory muscles and clear to auscultation bilaterally Cardio regular rate, regular rhythm, no murmurs and peripheral pulses 2+ throughout GI GI Narrative: Mild abdominal distention, soft, nontender to palpation. Back/Spine normal ROM Extremity Extremity Narrative: Right hip appears grossly normal on exam, did not palpate or attempt any range of motion. Skin no rashes or lesions noted Psych mental status grossly normal Assessment & Plan Assessment/Plan (1) Failed fixation of fracture: PLAN: Plan Patient is an 82-year-old male with history of COPD, hypertension, aortic st enosis, depression, hypothyroidism and recent right hip fracture with repair who presented to [facility] ED on 03/04/2023 with constipation and incidental finding of displacement of recently repaired right hip fracture on abdominal imaging. 1. Postoperative interval displacement of right femoral neck fracture, debility S/p percutaneous screw fixation of right femoral neck fracture on 02/07/2023 with orthopedic surgery. KUB on 03/04 done for concern for constipation incidentally showed right subcapital fracture with cephalic displacement of the distal fracture fragment and screw fixation device. Hip/pelvic x-ray in ED on 03/04 showed interval displacement of fracture of the subcapital femoral neck despite interval placement of 3 percutaneous screws. ? Orthopedic surgery following, s/p right total hip arthroplasty with Dr. Tristan on 03/05. Patient tolerated procedure well. PT/OT/case management following. Per orthopedics, implants are stable and patient is stable for discharge from their standpoint. Planning for SNF on discharge, hopeful that patient will be medically ready for discharge tomorrow. Pain control with scheduled Tylenol, oxycodone as needed. Will need 4 weeks of DVT prophylaxis from an orthopedic standpoint. Okay for Lovenox inpatient, will transition to Xarelto 10 mg daily for first 2 weeks postoperatively, followed by aspirin 81 mg twice daily for 2 weeks on discharge. Outpatient follow-up with orthopedics in 2 weeks. 2. Constipation, improving Likely secondary to opiate use postoperatively. Appears that patient was on MiraLAX twice daily and senna twice daily, as well as magnesium citrate in the TCU. Unclear if he was having regular bowel movements. Patient notably did have a bowel movement prior to admission, as well as another small bowel movement on 03/05. KUB on 03/04 did show colonic distention, no concern for SBO. ? Continue scheduled MiraLAX, senna. We will give 3 doses of Dulcolax suppositories daily. Monitor bowel movements. If patient tolerates diet well postoperatively, will be medically stable for discharge tomorrow. Chronic medical conditions: ? Aortic stenosis: Follows with Dr. Garcia. Recent cardiac cath showed moderate to severe aortic stenosis with pulm hypertension, nonobstructive coronary arteries. Notably was hospitalized last month for syncope due to complete heart block, was told at that time to follow-up in [place] for TAVR placement. ? Hypothyroidism: Continue home levothyroxine. ? Hypertension: Continue home chlorthalidone. ? Depression: Continue home sertraline. ? COPD: Continue home Spiriva, albuterol as needed. DVT prophylaxis: Lovenox CODE STATUS: Full code, verified Expected disposition: SNF, 1 to 2 days Total clinical time spent by myself addressing the patient's medical issues, reviewing all the data, and collaborating with patient's care team: 35 minutes. Charges/Coding Visit Charges Inpatient E&M: 29747 Subs Hosp L2
[2023-03-06] MEDS: Acetaminophen 500 MG Tablet 1000 MG PO (20:43)
[2023-03-06] MEDS: Montelukast 10 MG Tablet PO (22:32)
[2023-03-07] VITALS (8 sets, daily range): BP systolic 98–122; BP diastolic 61–71; PULSE 84–100; RESP 16–20; TEMP 36.3–38.4; O2SAT 34–100; BMI 24.6
[2023-03-07] MEDS: 0.9% Saline Lock 10 ML Syringe IV ×2 (01:01→13:59)
[2023-03-07 06:14] LABS: Hemoglobin 9.2 g/dL (13.0-16.5); Mean Corp Hgb Conc 30.7 g/dL (32-36); Mean Corpuscular Hgb 27.6 pg (27.0-32.0); Mean Corpuscular Volume 90.1 fL (80-94); Platelet Count 259 K/mm3 (150-450); RBC Distribution Width CV 14.6 % (11.6-14.6); RBC Distribution Width SD 48.3 fl (35.1-43.9); Red Blood Count 3.33 M/mm3 (4.6-6.2); White Blood Count 13.3 K/mm3 (4.4-11.0)
[2023-03-07] MEDS: Acetaminophen 500 MG Tablet 1000 MG PO ×3 (06:25→21:17)
[2023-03-07] MEDS: Levothyroxine 75 MCG Tablet PO (06:25)
[2023-03-07 06:35] LABS: Anion Gap 6 (5-15); BUN 51 mg/dL (7-18); BUN/Creat Ratio 33.8 RATIO (10-20); Calcium,Total 8.5 mg/dL (8.5-10.1); Chloride 97 mmol/L (98-107); Creatinine, Serum 1.51 mg/dL (0.70-1.30); EST Glomerular Filtration Rate 47 mL/min (>60); Est Glom Filt Rate - Afr Amer 57 mL/min (>60); Estimated Creatinine Clearance 35.23 ml/min; Glucose 151 mg/dL (74-106); Potassium 3.9 mmol/L (3.5-5.1); Sodium Level 131 mmol/L (136-145)
[2023-03-07] MEDS: Ipratropium/Albuterol Sulfate 3 ML AMPUL.NEB INHALATION ×2 (07:15→20:20)
[2023-03-07] MEDS: Budesonide Respules 0.5 MG/2 ML AMPUL.NEB. INHALATION ×2 (07:15→20:20)
[2023-03-07] MEDS: Multivitamins,Therapeutic Tablet 1 TABLET PO (09:05)
[2023-03-07] MEDS: Menthol/Lanolin/Calamine/Znox 113 GM Tube 1 APPLIC TOPICAL ×2 (09:05→21:18)
[2023-03-07] MEDS: Enoxaparin 40 MG/0.4 ML Syringe SC (09:08)
[2023-03-07] MEDS: Polyethylene Glycol 3350 17 GM PACKET PO (09:09)
[2023-03-07] MEDS: Famotidine 20 MG Tablet PO (09:09)
[2023-03-07] MEDS: Senna/Docusate Sodium 1 Tablet 2 TABLET PO ×2 (09:10→21:17)
[2023-03-07] MEDS: Sertraline 100 MG Tablet PO (09:10)
[2023-03-07] MEDS: Chlorthalidone 50 MG Tablet 25 MG PO (09:16)
[2023-03-07] MEDS: Ferrous Sulfate 325 MG Tablet PO (12:20)
--- NOTE | 2023-03-07 13:54 | PN.HOSP_ITS ---
Reason for Visit Reason for Visit: Diagnoses Fracture of unspecified part of neck of unspecified femur, initial encounter for closed fracture (03/04/23) Subjective Subjective Patient seen at bedside this morning. Laying comfortably in bed, was asleep when I entered the room. Alert for conversation and answering questions appropriately. Reports mild hip pain this morning, all controlled with pain medications. Does report moderate abdominal bloating and has not had much food or drink since his operation. Denies any nausea or vomiting. No other acute concerns this morning. Objective Data Objective Data Vital Signs: Vital Signs Temp Pulse Resp BP Pulse Ox O2 Del Method O2 Flow Rate 97.4 F L 84 16 98/61 94 Room Air 2 03/07/23 11:54 03/07/23 11:54 03/07/23 11:54 03/07/23 11:54 03/07/23 11:54 03/07/23 11:54 03/07/23 07:13 Oxygen Flow Rate (L/min) 2 Oxygen Delivery Method Room Air Weight: 73.527 kg Body Mass Index (BMI) 24.6 Intake & Output: Intake and Output for Last 24 Hours 03/05/23 03/06/23 03/07/23 23:59 23:59 23:59 Intake Total 1123.75 / 1373.75 820 / 1060 240 / 240 Output Total 510 / 510 200 / 350 150 / 150 Balance 613.75 / 863.75 620 / 710 90 / 90 Medical Nutrition Assessment Dietitian: Malnutrition Criteria Met Start: 03/05/23 14:14 Freq: Status: Active Protocol: Document 03/05/23 14:14 RMA (Rec: 03/05/23 14:16 RMA [id number]) Nutrition Malnutrition Evidence of Malnutrition Exists Yes Malnutrition (severe): Chronic Evidenced By Suboptimal Energy Intake ( Severe),Weight Loss (Severe) Clinical Problem Chronic Disease or Condition Related Malnutrition Etiology Severe protein-calorie malnutrition in the context of chronic disease and debility related to inadequate oral intake and difficulty chewing Signs/Symptoms as evidenced by ~10% weight loss x 2 months and PO meeting less than 50% estimated nutrition needs x 2 months Status Active Problem Recommendation Dietitian Recommendations/Changes Will liberalize diet to regular/no added salt given CKD; consistency/texture as per RECREATION WORKER. Will add ensure compact TID w/ meals. Consider RECREATION WORKER evaluation for reported chewing difficulty. Additional ONS as needed. Monitor renal labs and need for further diet restrictions. Lab / Micro Data 03/07/23 05:42 03/07/23 05:42 Labs: Laboratory Results - last 24 hr 03/07/23 05:42: WBC 13.3 H, RBC 3.33 L, Hgb 9.2 L, Hct 30.0 L, MCV 90.1, MCH 27.6, MCHC 30.7 L, RDW Std Deviation 48.3 H, RDW Coeff of John 14.6, Plt Count 259, MPV 10.0, Sodium 131 L, Potassium 3.9, Chloride 97 L, Carbon Dioxide 28.0, Anion Gap 6, BUN 51 H, Creatinine 1.51 H, Estim Creat Clear Calc 35.23, Est GFR (MDRD) Af Amer 57 L, Est GFR (MDRD) Non-Af 47 L, BUN/Creatinine Ratio 33.8 H, Glucose 151 H, Calcium 8.5 Micro: Microbiology 03/05/23 14:55 Urine Catheter - Catheter Urine Culture - Preliminary Culture exhibits no growth. Physical Exam Const alert, oriented x3 and no apparent distress Constitutional Narrative: Pleasant elderly male, lying comfortably in bed, appears fatigued but conversing normally, no acute distress. General Appearance: cooperative and comfortable HEENT normocephalic, head/scalp atraumatic, hearing grossly normal bilaterally, nasal mucous membranes and turbinates normal and moist oral mucous membranes Eyes PERRL, EOMs intact bilaterally and conjunctivae normal Neck full ROM, no lymphadenopathy and supple Lymph Lymphatic: no lymphadenopathy noted Chest inspection of chest normal Resp normal respiratory effort, normal air movement, no use of accessory muscles and clear to auscultation bilaterally Cardio regular rate, regular rhythm, no murmurs and peripheral pulses 2+ throughout GI GI Narrative: Mild abdominal distention, soft, nontender to palpation. Back/Spine normal ROM Extremity Extremity Narrative: Right hip appears grossly normal on exam, did not palpate or attempt any range of motion. Skin no rashes or lesions noted Psych mental status grossly normal Assessment & Plan Assessment/Plan (1) Failed fixation of fracture: PLAN: Plan Patient is an 82-year-old male with history of COPD, hypertension, aortic stenosis, depression, hypothyroidism and recent right hip fracture with repair who presented to [facility] ED on 03/04/2023 with constipation and incidental finding of displacement of recently repaired right hip fracture on abdominal imaging. 1. Postoperative interval displacement of right femoral neck fracture, debility S/p percutaneous screw fixation of right femoral neck fracture on 02/07/2023 with orthopedic surgery. KUB on 03/04 done for concern for constipation incidentally showed right subcapital fracture with cephalic displacement of the distal fracture fragment and screw fixation device. Hip/pelvic x-ray in ED on 03/04 showed interval displacement of fracture of the subcapital femoral neck despite interval placement of 3 percutaneous screws. ? Orthopedic surgery following, s/p right total hip arthroplasty with Dr. Tristan on 03/05. Patient tolerated procedure well. PT/OT/case management following. Per orthopedics, implants are stable and patient is stable for discharge from their standpoint. Pain control with scheduled Tylenol, oxycodone as needed. Will need 4 weeks of DVT prophylaxis from an orthopedic standpoint. Okay for Lovenox inpatient, will transition to Xarelto 10 mg daily for first 2 weeks postoperatively, followed by aspirin 81 mg twice daily for 2 weeks on discharge. Outpatient follow-up with orthopedics in 2 weeks. Planning for TCU on dis charge, hopeful that patient will be medically ready for discharge tomorrow. 2. Constipation, improving Likely secondary to opiate use postoperatively. Appears that patient was on MiraLAX twice daily and senna twice daily, as well as magnesium citrate in the TCU. Unclear if he was having regular bowel movements. Patient notably did have a bowel movement prior to admission, as well as another small bowel movement on 03/05. KUB on 03/04 did show colonic distention, no concern for SBO. ? Continue scheduled MiraLAX, senna. We will give 3 doses of Dulcolax suppositories daily, last dose on 03/07. Monitor bowel movements. If tolerating diet well tomorrow, will be medically stable for discharge. Chronic medical conditions: ? Aortic stenosis: Follows with Dr. Garcia. Recent cardiac cath showed moderate to severe aortic stenosis with pulm hypertension, nonobstructive coronary arteries. Notably was hospitalized last month for syncope due to complete heart block, was told at that time to follow-up in [place] for TAVR placement. ? Hypothyroidism: Continue home levothyroxine. ? Hypertension: Continue home chlorthalidone. ? Depression: Continue home sertraline. ? COPD: Continue home Spiriva, albuterol as needed. DVT prophylaxis: Lovenox CODE STATUS: Full code, verified Expected disposition: SNF (TCU), 1 to 2 days Total clinical time spent by myself addressing the patient's medical issues, reviewing all the data, and collaborating with patient's care team: 35 minutes. Charges/Coding Visit Charges Inpatient E&M: 14550 Subs Hosp L2
[2023-03-07] MEDS: Ondansetron 4 MG/2 ML Vial IV (13:59)
[2023-03-07] MEDS: Bisacodyl 10 MG Suppository RC (14:10)
--- NOTE | 2023-03-07 15:52 | CASEMGMT ---
Social Work Precert has been obtained for admission to TCU on 03/08. However, PATIENT CANNOT ADMIT TO TCU UNTIL HE IS FEVER FREE FOR 24 HOURS WITHOUT MEDICATION. Physician updated. SW attempted to meet with pt however he is sleeping soundly. Phone call to pt and informed of dc plan and is agreeable with dc plan. Plan: TCU, when medically ready [facility] [place]
[2023-03-07] MEDS: Montelukast 10 MG Tablet PO (21:17)
[2023-03-08 02:00] VITALS: BP 104/60; PULSE 85; RESP 16; TEMP 36.8; O2SAT 100
[2023-03-08] MEDS: Levothyroxine 75 MCG Tablet PO (05:30)
[2023-03-08] MEDS: Acetaminophen 500 MG Tablet 1000 MG PO ×3 (05:30→21:14)
[2023-03-08] MEDS: Ipratropium/Albuterol Sulfate 3 ML AMPUL.NEB INHALATION ×2 (07:04→19:29)
[2023-03-08] MEDS: Budesonide Respules 0.5 MG/2 ML AMPUL.NEB. INHALATION ×2 (07:04→19:29)
[2023-03-08 07:05] VITALS: PULSE 85; RESP 16; O2SAT 94
[2023-03-08] MEDS: Sertraline 100 MG Tablet PO (09:41)
[2023-03-08] MEDS: Menthol/Lanolin/Calamine/Znox 113 GM Tube 1 APPLIC TOPICAL ×2 (09:41→21:15)
[2023-03-08] MEDS: Senna/Docusate Sodium 1 Tablet 2 TABLET PO ×2 (09:41→21:14)
[2023-03-08] MEDS: Chlorthalidone 50 MG Tablet 25 MG PO (09:41)
[2023-03-08] MEDS: Multivitamins,Therapeutic Tablet 1 TABLET PO (09:42)
[2023-03-08] MEDS: Ferrous Sulfate 325 MG Tablet PO (09:43)
[2023-03-08] MEDS: Enoxaparin 40 MG/0.4 ML Syringe SC (09:43)
[2023-03-08] MEDS: Polyethylene Glycol 3350 17 GM PACKET PO ×2 (09:43→21:14)
[2023-03-08] MEDS: Famotidine 20 MG Tablet PO (09:44)
[2023-03-08 10:15] VITALS: BP 110/62; PULSE 84; RESP 16; TEMP 36.7; O2SAT 100
--- NOTE | 2023-03-08 12:33 | DCINST_ITS ---
Discharge Instructions Diet Discharge Diet: No restrictions and - (Ensure compact 3 times daily with meals) Activity Discharge Activity: Return to Normal Activity Weight Bearing Status: Full weight bearing Follow Up Care Please Follow Up With: Angelique Grossman MD When: As needed Test Results: Test results from this visit will be discussed in further detail at your follow- up appointment, if applicable. Pending Tests Upon Discharge: None Discharge Plan Admission Admit Date/Time: 03/04/23 21:52 Primary Reason for Your Visit: Right hip repair failure Attending Provider: Carlo Edwards Primary Care Provider: Angelique Grossman Consulting Providers: Neil Vargas; Stanley Tristan Instructions Additional Instructions / Restrictions: New medications: ? Xarelto 10 mg daily for 2 weeks, followed by ? Aspirin 81 mg twice daily for 2 weeks, for postoperative DVT prophylaxis ? MiraLAX 17 g daily ? Senna 1 tablet twice daily Continue all other home medications as normal. Follow-up with your primary care doctor as needed. The orthopedic surgery office will call you to schedule a follow-up appointment. Discharge Orders/Prescriptions Prescriptions: New polyethylene glycol 3350 17 gram Powder In Packet 17 g PO DAILY 30 Days Qty: 30 0RF sennosides-docusate sodium [Stool Softener-Stimulant Laxat] 8.6-50 mg Tablet 1 tab PO BID 30 Days Qty: 60 0RF Xarelto 10 mg tablet 10 mg PO DAILY 14 Days Qty: 14 0RF aspirin 81 mg tablet,delayed release (DR/EC) 81 mg PO BID 14 Days Qty: 28 0RF Continued multivitamin Tablet 1 tab PO QAM montelukast 10 mg tablet 10 mg PO QPM Qty: 30 3RF ferrous sulfate [FeroSul] 325 mg (65 mg iron) tablet 325 mg PO DAILY epinephrine 0.3 MG/0.3 ML auto-injector 0.3 mg IJ PRN PRN (Reason: Anaphylaxis) acetaminophen 500 MG tablet 1,000 mg PO BID PRN PRN (Reason: Pain) albuterol sulfate 2.5 mg /3 mL (0.083 %) solution for nebulization 2.5 mg INHALATION Q6H PRN (Reason: shortness of breath or wheezing) hydrocodone-acetaminophen 5-325 mg Tablet 1 tab PO Q6H PRN PRN (Reason: Pain Score 6-10) 3 Days Qty: 15 0RF sertraline 100 mg tablet 100 mg PO DAILY Qty: 90 1RF fluticasone propionate 50 mcg/actuation spray,suspension 2 spray intranasal DAILY Qty: 16 3RF chlorthalidone 25 mg tablet 25 mg PO DAILY Qty: 90 3RF nystatin-triamcinolone 100,000-0.1 unit/g-% cream 1 applic topical BID PRN (Reason: rash) Qty: 30 1RF levothyroxine 75 mcg tablet 75 mcg PO DAILY Qty: 90 3RF fluticasone propion-salmeterol 230-21 mcg/actuation HFA aerosol inhaler 2 puff INHALATION BID Qty: 1 11RF Spiriva Respimat 2.5 mcg/actuation mist 2 puff INHALATION QDAY Qty: 1 11RF albuterol sulfate 90 mcg/actuation HFA aerosol inhaler 2 puff INHALATION Q4H PRN PRN (Reason: Sob &/Or Wheezing) Qty: 1 6RF nitroglycerin 0.4 mg tablet, sublingual 0.4 mg sublingual Q5-15M PRN (Reason: CHEST PAIN) Qty: 25 3RF famotidine 40 mg tablet 40 mg PO DAILY Qty: 90 3RF Discontinued enoxaparin 40 mg/0.4 mL Syringe 40 mg subcut DAILY 30 Days Qty: 12 0RF polyethylene glycol 3350 17 gram Powder In Packet 17 g PO BID 7 Days Qty: 30 0RF levofloxacin 750 mg Tablet 750 mg PO DAILY 6 Days Qty: 6 0RF Referrals / Follow Up: Angelique Grossman MD [Primary Care Provider] - Disposition Disposition (needs filled in before D/C Order can be placed): [facility] Facility
--- NOTE | 2023-03-08 12:45 | DS.PCM_ITS ---
Providers Date of Admission: 03/04/23 Date of Discharge: 03/08/23 Primary Care Physician: Dr. Angelique Grossman MD Consultations 03/04/23 22:58 Consult: Orthopedics Routine Consulting Provider: Stanley Tristan Reason for Consult: POST OP Displaced hip fracture site EMERGENT Consult: No MD Notified: Yes Date Notified: 03/04/23 Time Notified: 22:58 Method of Notification: ED Physician Initiated 03/05/23 07:36 Consult: Onc/Wound/due diligence coordinator Routine Comment: Reason for Consult:: EMMY LE PVD ulcers Reason For Visit: DISLOCATION AFTER RECENT HIP SURGERY Diagnosis Discharge Diagnosis (1) Failed fixation of fracture: Status: Acute Medications at Discharge Home Medications acetaminophen 500 mg tablet 1,000 mg PO BID PRN PRN Pain 12/04/18 epinephrine 0.3 mg/0.3 mL injection, auto-injector 0.3 mg IJ PRN PRN Anaphylaxis 12/04/18 multivitamin 1 tab PO QAM vitamin 04/19/19 sertraline 100 mg tablet 100 mg PO DAILY mental health #90 tabs 06/10/22 fluticasone propionate 50 mcg/actuation nasal spray,suspension 2 spray intranasal DAILY allergies #16 grams 06/27/22 chlorthalidone 25 mg tablet 25 mg PO DAILY blood pressure #90 tabs 07/08/22 nystatin-triamcinolone 100,000 unit/g-0.1 % topical cream 1 applic topical BID PRN rash #30 grams 07/25/22 levothyroxine 75 mcg tablet 75 mcg PO DAILY thyroid #90 tabs 08/12/22 fluticasone propionate 230 mcg-salmeterol 21 mcg/actuation HFA inhaler 2 puff inhalation BID breathing #1 device 08/23/22 tiotropium bromide 2.5 mcg/actuation mist for inhalation (Spiriva Respimat) 2 puff inhalation QDAY breathing #1 ea 08/23/22 montelukast 10 mg tablet 10 mg PO QPM allergies #30 tabs 09/27/22 albuterol sulfate 90 mcg/actuation aerosol inhaler 2 puff inhalation Q4H PRN PRN Sob &/Or Wheezing #1 ea 10/29/22 ferrous sulfate 325 mg (65 mg iron) tablet (FeroSul) 325 mg PO DAILY iron 11/29/22 nitroglycerin 0.4 mg sublingual tablet 0.4 mg sublingual Q5-15M PRN CHEST PAIN #25 tabs 12/02/22 famotidine 40 mg tablet 40 mg PO DAILY reflux #90 tabs 01/02/23 albuterol sulfate 2.5 mg/3 mL (0.083 %) solution for nebulization 2.5 mg inhalation Q6H PRN shortness of breath or wheezing 01/30/23 hydrocodone-acetaminophen 5-325mg 5mg-325mg 1 tab PO Q6H PRN PRN Pain Score 6-10 3 days #15 tabs 02/11/23 aspirin 81 mg tablet,delayed release 81 mg PO BID 2 weeks #28 tabs 03/08/23 polyethylene glycol 3350 17 gram oral powder packet 17 g PO DAILY 30 days #30 ea 03/08/23 rivaroxaban 10 mg tablet (Xarelto) 10 mg PO DAILY 2 weeks #14 tabs 03/08/23 sennosides 8.6 mg-docusate sodium 50 mg tablet (Stool Softener-Stimulant Laxative) 1 tab PO BID 30 days #60 tabs 03/08/23 Hospital Course Operations total hip replacement and - Procedures EKG and - (Hip x-ray x2, chest x-ray, abdominal x-ray) Summary of Care Provided Minutes Spent on Discharge: 38 Hospital Course: Patient is an 82-year-old male with history of COPD, hypertension, aortic stenosis, depression, hypothyroidism and recent right hip fracture with repair who presented to [facility] ED on 03/04/2023 with constipation and incidental finding of displacement of recently repaired right hip fracture on abdominal imaging. Medical conditions addressed during hospitalization as noted below. Postoperative interval displacement of right femoral neck fracture, debility: S/p percutaneous screw fixation of right femoral neck fracture on 02/07/2023 with orthopedic surgery. KUB on 03/04 done for concern for constipation incidentally showed right subcapital fracture with cephalic displacement of the distal fracture fragment and screw fixation device. Hip/pelvic x-ray in ED on 03/04 showed interval displacement of fracture of the subcapital femoral neck despite interval placement of 3 percutaneous screws. Orthopedic surgery followed. S/p right total hip arthroplasty with Dr. Tristan on 03/05. Patient tolerated procedure well. PT/OT/case management followed. Discharged to TCU in stable condition. Postoperative DVT prophylaxis with Xarelto 10 mg daily for 2 weeks, followed by aspirin 81 mg twice daily for 2 weeks. Tylenol as needed and Percocet as needed for pain control. Outpatient follow-up with orthopedics in 2 weeks. Constipation, improved: Likely secondary to opiate use postoperatively. Appears that patient was on MiraLAX twice daily and senna twice daily, as well as magnesium citrate in the TCU. Unclear if he was having regular bowel movements. Patient notably did have a bowel movement prior to admission, as well as another small bowel movement on 03/05. KUB on 03/04 did show colonic distention, no concern for SBO. Patient received 3 doses of Dulcolax suppositories daily while hospitalized, with good results. Discharged on MiraLAX daily and senna 1 tablet twice daily. Discharge diagnoses: ? Postoperative interval displacement of right femoral neck fracture s/p total hip replacement ? Debility ? Constipation, improved ? Aortic stenosis ? Hypothyroidism ? Hypertension ? Depression ? COPD Total clinical time spent by myself addressing the patient's discharge needs: 38 minutes. Physical Exam Const alert, oriented x3 and no apparent distress Constitutional Narrative: Pleasant elderly male, lying comfortably in bed, appears fatigued but conversing normally, no acute distress. General Appearance: cooperative and comfortable HEENT normocephalic, head/scalp atraumatic, hearing grossly normal bilaterally, nasal mucous membranes and turbinates normal and moist oral mucous membranes Eyes PERRL, EOMs intact bilaterally and conjunctivae normal Neck full ROM, no lymphadenopathy and supple Lymph Lymphatic: no lymphadenopathy noted Chest inspection of chest normal Resp normal respiratory effort, normal air movement, no use of accessory muscles and clear to auscultation bilaterally Cardio regular rate, regular rhythm, no murmurs and peripheral pulses 2+ throughout GI GI Narrative: Mild abdominal distention, soft, nontender to palpation. Back/Spine normal ROM Extremity Extremity Narrative: Right hip appears grossly normal on exam, did not palpate or attempt any range of motion. Skin no rashes or lesions noted Psych mental status grossly normal Medical Records Data Medical Nutrition Assessment Dietitian: Malnutrition Criteria Met Start: 03/05/23 14:14 Freq: Status: Active Protocol: Document 03/05/23 14:14 RMA (Rec: 03/05/23 14:16 RMA [id number]) Nutrition Malnutrition Evidence of Malnutrition Exists Yes Malnutrition (severe): Chronic Evidenced By Suboptimal Energy Intake ( Severe),Weight Loss (Severe) Clinical Problem Chronic Disease or Condition Related Malnutrition Etiology Severe protein-calorie malnutrition in the context of chronic disease and debility related to inadequate oral intake and difficulty chewing Signs/Symptoms as evidenced by ~10% weight loss x 2 months and PO meeting less than 50% estimated nutrition needs x 2 months Status Active Problem Recommendation Dietitian Recommendations/Changes Will liberalize diet to regular/no added salt given CKD; consistency/texture as per FRONT OFFICE REPRESENTATIVE. Will add ensure compact TID w/ meals. Consider FRONT OFFICE REPRESENTATIVE evaluation for reported chewing difficulty. Additional ONS as needed. Monitor renal labs and need for further diet restrictions. Weight / BMI Weight Weight: 73.527 kg Body Mass Index (BMI) 24.6 ABG / Lab / Microbiology Data 03/07/23 05:42 03/07/23 05:42 Microbiology: Microbiology 03/05/23 14:55 Urine Catheter - Catheter Urine Culture - Final Culture exhibits no growth. D/C Instructions Discharge Diet: No restrictions and - (Ensure compact 3 times daily with meals) Weight Bearing Status: Full weight bearing Pending Tests Upon Discharge: None Please Follow Up With: Angelique Grossman MD When: As needed Meaningful Use Info Meaningful Use Diagnoses (Choose all that apply): None applicable Discharge Plan Admission Admit Date/Time: 03/04/23 21:52 Primary Reason for Your Visit: Right hip repair failure Attending Provider: Carlo Edwards Primary Care Provider: Angelique Grossman Consulting Providers: Neil Vargas; Stanley Tristan Instructions Additional Instructions / Restrictions: New medications: ? Xarelto 10 mg daily for 2 weeks, followed by ? Aspirin 81 mg twice daily for 2 weeks, for postoperative DVT prophylaxis ? MiraLAX 17 g daily ? Senna 1 tablet twice daily Continue all other home medications as normal. Follow-up with your primary care doctor as needed. The orthopedic surgery office will call you to schedule a follow-up appointment. Discharge Orders/Prescriptions Prescriptions: New polyethylene glycol 3350 17 gram Powder In Packet 17 g PO DAILY 30 Days Qty: 30 0RF sennosides-docusate sodium [Stool Softener-Stimulant Laxat] 8.6-50 mg Tablet 1 tab PO BID 30 Days Qty: 60 0RF Xarelto 10 mg tablet 10 mg PO DAILY 14 Days Qty: 14 0RF aspirin 81 mg tablet,delayed release (DR/EC) 81 mg PO BID 14 Days Qty: 28 0RF Continued multivitamin Tablet 1 tab PO QAM montelukast 10 mg tablet 10 mg PO QPM Qty: 30 3RF ferrous sulfate [FeroSul] 325 mg (65 mg iron) tablet 325 mg PO DAILY epinephrine 0.3 MG/0.3 ML auto-injector 0.3 mg IJ PRN PRN (Reason: Anaphylaxis) acetaminophen 500 MG tablet 1,000 mg PO BID PRN PRN (Reason: Pain) albuterol sulfate 2.5 mg /3 mL (0.083 %) solution for nebulization 2.5 mg INHALATION Q6H PRN (Reason: shortness of breath or wheezing) hydrocodone-acetaminophen 5-325 mg Tablet 1 tab PO Q6H PRN PRN (Reason: Pain Score 6-10) 3 Days Qty: 15 0RF sertraline 100 mg tablet 100 mg PO DAILY Qty: 90 1RF fluticasone propionate 50 mcg/actuation spray,suspension 2 spray intranasal DAILY Qty: 16 3RF chlorthalidone 25 mg tablet 25 mg PO DAILY Qty: 90 3RF nystatin-triamcinolone 100,000-0.1 unit/g-% cream 1 applic topical BID PRN (Reason: rash) Qty: 30 1RF levothyroxine 75 mcg tablet 75 mcg PO DAILY Qty: 90 3RF fluticasone propion-salmeterol 230-21 mcg/actuation HFA aerosol inhaler 2 puff INHALATION BID Qty: 1 11RF Spiriva Respimat 2.5 mcg/actuation mist 2 puff INHALATION QDAY Qty: 1 11RF albuterol sulfate 90 mcg/actuation HFA aerosol inhaler 2 puff INHALATION Q4H PRN PRN (Reason: Sob &/Or Wheezing) Qty: 1 6RF nitroglycerin 0.4 mg tablet, sublingual 0.4 mg sublingual Q5-15M PRN (Reason: CHEST PAIN) Qty: 25 3RF famotidine 40 mg tablet 40 mg PO DAILY Qty: 90 3RF Discontinued enoxaparin 40 mg/0.4 mL Syringe 40 mg subcut DAILY 30 Days Qty: 12 0RF polyethylene glycol 3350 17 gram Powder In Packet 17 g PO BID 7 Days Qty: 30 0RF levofloxacin 750 mg Tablet 750 mg PO DAILY 6 Days Qty: 6 0RF Referrals / Follow Up: Angelique Grossman MD [Primary Care Provider] - Disposition Disposition (needs filled in before D/C Order can be placed): [facility] Charges/Coding Visit Charges Inpatient E&M: 36338 Disch Hosp >30min
--- NOTE | 2023-03-08 12:52 | TREXTCAR_ITS ---
Diet Diet Order/Speech Therapy: 03/07/23 15:43 Diet: Regular - General Dietary Modifications:: No Added Salt Type of Dietary Supplement:: Ensure Compact Diet Comments: Ensure Compact TID w/ meals Wound(s) buttocks: Wound Type: Pressure Injury L lateral cota: Wound Type: Stasis Ulcer R lateral cota: Wound Type: Stasis Ulcer Dressing Change: adaptic R elbow\: Wound Type: Abrasion RIGHT HIP: Wound Type: Surgical Incision Problem/Diagnosis (1) Failed fixation of fracture: Status: Acute Plan Patient is an 82-year-old male with history of COPD, hypertension, aortic stenosis, depression, hypothyroidism and recent right hip fracture with repair who presented to [facility] ED on 03/04/2023 with constipation and incidental finding of displacement of recently repaired right hip fracture on abdominal imaging. Medical conditions addressed during hospitalization as noted below. Postoperative interval displacement of right femoral neck fracture, debility: S/p percutaneous screw fixation of right femoral neck fracture on 02/07/2023 with orthopedic surgery. KUB on 03/04 done for concern for constipation incidentally showed right subcapital fracture with cephalic displacement of the distal fracture fragment and screw fixation device. Hip/pelvic x-ray in ED on 03/04 showed interval displacement of fracture of the subcapital femoral neck despite interval placement of 3 percutaneous screws. Orthopedic surgery followed. S/p right total hip arthroplasty with Dr. Tristan on 03/05. Patient tolerated procedure well. PT/OT/case management followed. Discharged to TCU in stable condition. Postoperative DVT prophylaxis with Xarelto 10 mg daily for 2 weeks, followed by aspirin 81 mg twice daily for 2 weeks. Tylenol as needed and Percocet as needed for pain control. Outpatient follow-up with orthopedics in 2 weeks. Constipation, improved: Likely secondary to opiate use postoperatively. Appears that patient was on MiraLAX twice daily and senna twice daily, as well as magnesium citrate in the TCU. Unclear if he was having regular bowel movements. Patient notably did have a bowel movement prior to admission, as well as another small bowel movement on 03/05. KUB on 03/04 did show colonic distention, no concern for SBO. Patient received 3 doses of Dulcolax suppositories daily while hospitalized, with good results. Discharged on MiraLAX daily and senna 1 tablet twice daily. Discharge diagnoses: ? Postoperative interval displacement of right femoral neck fracture s/p total hip replacement ? Debility ? Constipation, improved ? Aortic stenosis ? Hypothyroidism ? Hypertension ? Depression ? COPD Total clinical time spent by myself addressing the patient's discharge needs: 38 minutes. Allergies/Procedures Done in Hospital Allergies indomethacin [From Indocin] Adverse Reaction (Intermediate, Verified 03/04/23 20:42) Itching indomethacin sodium [From Indocin] Adverse Reaction (Intermediate, Verified 03/04/23 20:42) Itching oxycodone HCl [From Percocet] Adverse Reaction (Intermediate, Verified 03/04/23 20:42) Itching Procedures: - (Total hip replacement) Type of Care/Length of Stay Estimated LOS: Convalescent Care Less Than 30 days Type of Care Needed: Skilled Rehab Potential: Fair Prognosis: Fair Additional Orders/Day of Discharge H&P will serve as current which was dated: 03/04/23 Day of Discharge: 03/08/23 Dietary and Speech Recommendations Dietitian Recommendations/Changes: Will liberalize diet to regular/no added salt given CKD; consistency/texture as per LAND AGENT. Will add ensure compact TID w/ meals. Consider LAND AGENT evaluation for reported chewing difficulty. Additional ONS as needed. Monitor renal labs and need for further diet restrictions. Follow Up Care Please Follow Up With: Angelique Grossman MD Please Follow Up With: Stanley Tristan MD When: 2 weeks Discharge Plan Admission Admit Date/Time: 03/04/23 21:52 Primary Reason for Your Visit: Right hip repair failure Attending Provider: Carlo Edwards Primary Care Provider: Angelique Grossman Consulting Providers: Neil Vargas; Stanley Tristan Instructions Additional Instructions / Restrictions: New medications: ? Xarelto 10 mg daily for 2 weeks, followed by ? Aspirin 81 mg twice daily for 2 weeks, for postoperative DVT prophylaxis ? MiraLAX 17 g daily ? Senna 1 tablet twice daily Continue all other home medications as normal. Follow-up with your primary care doctor as needed. The orthopedic surgery office will call you to schedule a follow-up appointment. Discharge Orders/Prescriptions Prescriptions: New polyethylene glycol 3350 17 gram Powder In Packet 17 g PO DAILY 30 Days Qty: 30 0RF sennosides-docusate sodium [Stool Softener-Stimulant Laxat] 8.6-50 mg Tablet 1 tab PO BID 30 Days Qty: 60 0RF Xarelto 10 mg tablet 10 mg PO DAILY 14 Days Qty: 14 0RF aspirin 81 mg tablet,delayed release (DR/EC) 81 mg PO BID 14 Days Qty: 28 0RF Continued multivitamin Tablet 1 tab PO QAM montelukast 10 mg tablet 10 mg PO QPM Qty: 30 3RF ferrous sulfate [FeroSul] 325 mg (65 mg iron) tablet 325 mg PO DAILY epinephrine 0.3 MG/0.3 ML auto-injector 0.3 mg IJ PRN PRN (Reason: Anaphylaxis) acetaminophen 500 MG tablet 1,000 mg PO BID PRN PRN (Reason: Pain) albuterol sulfate 2.5 mg /3 mL (0.083 %) solution for nebulization 2.5 mg INHALATION Q6H PRN (Reason: shortness of breath or wheezing) hydrocodone-acetaminophen 5-325 mg Tablet 1 tab PO Q6H PRN PRN (Reason: Pain Score 6-10) 3 Days Qty: 15 0RF sertraline 100 mg tablet 100 mg PO DAILY Qty: 90 1RF fluticasone propionate 50 mcg/actuation spray,suspension 2 spray intranasal DAILY Qty: 16 3RF chlorthalidone 25 mg tablet 25 mg PO DAILY Qty: 90 3RF nystatin-triamcinolone 100,000-0.1 unit/g-% cream 1 applic topical BID PRN (Reason: rash) Qty: 30 1RF levothyroxine 75 mcg tablet 75 mcg PO DAILY Qty: 90 3RF fluticasone propion-salmeterol 230-21 mcg/actuation HFA aerosol inhaler 2 puff INHALATION BID Qty: 1 11RF Spiriva Respimat 2.5 mcg/actuation mist 2 puff INHALATION QDAY Qty: 1 11RF albuterol sulfate 90 mcg/actuation HFA aerosol inhaler 2 puff INHALATION Q4H PRN PRN (Reason: Sob &/Or Wheezing) Qty: 1 6RF nitroglycerin 0.4 mg tablet, sublingual 0.4 mg sublingual Q5-15M PRN (Reason: CHEST PAIN) Qty: 25 3RF famotidine 40 mg tablet 40 mg PO DAILY Qty: 90 3RF Discontinued enoxaparin 40 mg/0.4 mL Syringe 40 mg subcut DAILY 30 Days Qty: 12 0RF polyethylene glycol 3350 17 gram Powder In Packet 17 g PO BID 7 Days Qty: 30 0RF levofloxacin 750 mg Tablet 750 mg PO DAILY 6 Days Qty: 6 0RF Referrals / Follow Up: Angelique Grossman MD [Primary Care Provider] - Disposition Disposition (needs filled in before D/C Order can be placed): [facility] Facility Charges/Coding Visit Charges Inpatient E&M: 17787 Disch Hosp >30min
[2023-03-08 15:16] VITALS: BP 108/64; PULSE 88; RESP 16; TEMP 36.6; O2SAT 97
[2023-03-08 19:30] VITALS: PULSE 94; RESP 18
[2023-03-08 20:30] VITALS: BP 108/61; PULSE 87; RESP 16; TEMP 37.2; O2SAT 98
[2023-03-08] MEDS: Montelukast 10 MG Tablet PO (21:14)
[2023-03-08] MEDS: oxyCODONE 5 MG Tablet PO (21:14)
[2023-03-09] VITALS (7 sets, daily range): BP systolic 102–112; BP diastolic 61–63; PULSE 79–97; RESP 16–20; TEMP 36.6–37.2; O2SAT 94–98
[2023-03-09] MEDS: Levothyroxine 75 MCG Tablet PO (05:31)
[2023-03-09] MEDS: Budesonide Respules 0.5 MG/2 ML AMPUL.NEB. INHALATION ×2 (07:32→19:21)
[2023-03-09] MEDS: Ipratropium/Albuterol Sulfate 3 ML AMPUL.NEB INHALATION ×3 (07:32→19:21)
[2023-03-09] MEDS: Enoxaparin 40 MG/0.4 ML Syringe SC (10:55)
[2023-03-09] MEDS: Polyethylene Glycol 3350 17 GM PACKET PO ×2 (10:55→21:50)
[2023-03-09] MEDS: Menthol/Lanolin/Calamine/Znox 113 GM Tube 1 APPLIC TOPICAL ×2 (10:55→21:49)
[2023-03-09] MEDS: Famotidine 20 MG Tablet PO (10:56)
[2023-03-09] MEDS: Multivitamins,Therapeutic Tablet 1 TABLET PO (10:56)
[2023-03-09] MEDS: Sertraline 100 MG Tablet PO (10:57)
[2023-03-09] MEDS: Chlorthalidone 50 MG Tablet 25 MG PO (10:57)
[2023-03-09] MEDS: Senna/Docusate Sodium 1 Tablet 2 TABLET PO ×2 (10:57→21:50)
[2023-03-09] MEDS: Ferrous Sulfate 325 MG Tablet PO (11:00)
--- NOTE | 2023-03-09 13:42 | PN.HOSP_ITS ---
Reason for Visit Reason for Visit: Diagnoses Fracture of unspecified part of neck of unspecified femur, initial encounter for closed fracture (03/04/23) Subjective Subjective Patient seen at bedside this morning. Resting comfortably in bed, conversing normally, no acute distress. Patient reports mild abdominal discomfort with bowel movements, otherwise has been doing well. No other acute concerns morning. Objective Data Objective Data Vital Signs: Vital Signs Temp Pulse Resp BP Pulse Ox O2 Del Method O2 Flow Rate 97.9 F 79 16 102/61 98 Room Air 2 03/09/23 10:00 03/09/23 10:00 03/09/23 10:00 03/09/23 10:00 03/09/23 10:00 03/09/23 10:00 03/09/23 07:32 Oxygen Flow Rate (L/min) 2 Oxygen Delivery Method Room Air Weight: 73.527 kg Body Mass Index (BMI) 24.6 Intake & Output: Intake and Output for Last 24 Hours 03/07/23 03/08/23 03/09/23 23:59 23:59 23:59 Intake Total 240 / 240 990 / 990 Output Total 150 / 650 1150 / 1400 650 / 650 Balance 90 / -410 -160 / -410 -650 / -650 Medical Nutrition Assessment Dietitian: Malnutrition Criteria Met Start: 03/05/23 14:14 Freq: Status: Active Protocol: Document 03/09/23 12:34 RMA (Rec: 03/09/23 12:34 RMA [id number]) Nutrition Malnutrition Evidence of Malnutrition Exists Yes Malnutrition (severe): Chronic Evidenced By Suboptimal Energy Intake ( Severe),Weight Loss (Severe) Clinical Problem Chronic Disease or Condition Related Malnutrition Etiology Severe protein-calorie malnutrition in the context of chronic disease and debility related to inadequate oral intake and difficulty chewing Signs/Symptoms as evidenced by ~10% weight loss x 2 months and PO meeting less than 50% estimated nutrition needs x 2 months Status Active Problem Recommendation Dietitian Recommendations/Changes Continue regular/no added salt given CKD; consistency/ texture as per SALES SECRETARY. Continue ensure compact TID w/ meals. Consider SALES SECRETARY evaluation for reported chewing difficulty. Additional ONS as needed if PO at meals regresses. Monitor renal labs and need for further diet restrictions. Lab / Micro Data 03/07/23 05:42 03/07/23 05:42 Micro: Microbiology 10/18/23 14:55 Urine Catheter - Catheter Urine Culture - Final Culture exhibits no growth. Physical Exam Const alert, oriented x3 and no apparent distress Constitutional Narrative: Pleasant elderly male, lying comfortably in bed, appears fatigued but conversing normally, no acute distress. General Appearance: cooperative and comfortable HEENT normocephalic, head/scalp atraumatic, hearing grossly normal bilaterally, nasal mucous membranes and turbinates normal and moist oral mucous membranes Eyes PERRL, EOMs intact bilaterally and conjunctivae normal Neck full ROM, no lymphadenopathy and supple Lymph Lymphatic: no lymphadenopathy noted Chest inspection of chest normal Resp normal respiratory effort, normal air movement, no use of accessory muscles and clear to auscultation bilaterally Cardio regular rate, regular rhythm, no murmurs and peripheral pulses 2+ throughout GI GI Narrative: Mild abdominal distention, soft, nontender to palpation. Back/Spine normal ROM Extremity Extremity Narrative: Right hip appears grossly normal on exam, did not palpate or attempt any range of motion. Skin no rashes or lesions noted Psych mental status grossly normal Assessment & Plan Assessment/Plan (1) Failed fixation of fracture: PLAN: Plan Patient is an 82-year-old male with history of COPD, hypertension, aortic stenosis, depression, hypothyroidism and recent right hip fracture with repair who presented to [facility] ED on 03/04/2023 with constipation and incidental finding of displacement of recently repaired right hip fracture on abdominal imaging. 1. Postoperative interval displacement of right femoral neck fracture, debility S/p percutaneous screw fixation of right femoral neck fracture on 02/07/2023 with orthopedic surgery. KUB on 03/04 done for concern for constipation incidentally showed right subcapital fracture with cephalic displacement of the distal fracture fragment and screw fixation device. Hip/pelvic x-ray in ED on 03/04 showed interval displacement of fracture of the subcapital femoral neck despite interval placement of 3 percutaneous screws. ? Orthopedic surgery following, s/p right total hip arthroplasty with Dr. Tristan on 03/05. Patient tolerated procedure well. PT/OT/case management following. Per orthopedics, implants are stable and patient is stable for discharge from their standpoint. For DVT prophylaxis, will start Xarelto 10 mg daily for 2 weeks postoperatively followed by aspirin 81 mg twice daily for 2 weeks on discharge. Outpatient follow-up with orthopedics in 2 weeks. 2. Constipation, improving; abdominal cramping Likely secondary to opiate use postoperatively. Appears that patient was on MiraLAX twice daily and senna twice daily, as well as magnesium citrate in the TCU. Unclear if he was having regular bowel movements. Patient notably did have a bowel movement prior to admission, as well as another small bowel movement on 03/05. KUB on 03/04 did show colonic distention, no concern for SBO. ? Continue scheduled MiraLAX, senna. Gave 3 doses of Dulcolax suppositories daily, last dose on 03/07. Patient not having regular bowel movements. Bentyl ordered for mild abdominal cramping on 03/09, can prescribe this on discharge. 3. Episode of fever Patient noted to have an episode of fever on morning of 03/07, had fever of 101.2F. Patient asymptomatic at that time. Vitals otherwise stable. WBC count mildly elevated but suspect this was secondary to postoperative changes. Chest x-ray normal on admit, UA normal on admit. No other clear source of infection. ? Patient was on scheduled Tylenol every 8 hours for pain control postoperatively. Needed to discontinue Tylenol as patient needs to remain afebrile for 24 hours prior to being discharged to the TCU. Unfortunately, patient received Tylenol on evening of 03/08 after it was discontinued, and thus could not be discharged to the TCU on 03/09. Tylenol discontinued, if remains afebrile through tomorrow, will be okay for discharge to TCU tomorrow. Chronic medical conditions: ? Aortic stenosis: Follows with Dr. Garcia. Recent cardiac cath showed moderate to severe aortic stenosis with pulm hypertension, nonobstructive coronary arteries. Notably was hospitalized last month for syncope due to complete heart block, was told at that time to follow-up in [place] for TAVR placement. ? Hypothyroidism: Continue home levothyroxine. ? Hypertension: Continue home chlorthalidone. ? Depression: Continue home sertraline. ? COPD: Continue home Spiriva, albuterol as needed. DVT prophylaxis: Lovenox CODE STATUS: Full code, verified Expected disposition: SNF (TCU), tomorrow Total clinical time spent by myself addressing the patient's medical issues, reviewing all the data, and collaborating with patient's care team: 35 minutes. Charges/Coding Visit Charges Inpatient E&M: 41981 Subs Hosp L2
[2023-03-09] MEDS: Dicyclomine 10 MG Capsule PO (16:36)
[2023-03-09] MEDS: oxyCODONE 5 MG Tablet PO (16:49)
[2023-03-09] MEDS: Montelukast 10 MG Tablet PO (21:50)
[2023-03-09] MEDS: 0.9% Saline Lock 10 ML Syringe IV (21:52)
[2023-03-10] MEDS: oxyCODONE 5 MG Tablet PO (00:20)
[2023-03-10 06:09] VITALS: BP 105/65; PULSE 81; RESP 16; TEMP 36.7; O2SAT 97
[2023-03-10] MEDS: Dicyclomine 10 MG Capsule PO ×2 (06:14→11:11)
[2023-03-10] MEDS: Levothyroxine 75 MCG Tablet PO (06:14)
[2023-03-10] MEDS: Ipratropium/Albuterol Sulfate 3 ML AMPUL.NEB INHALATION (07:05)
[2023-03-10] MEDS: Budesonide Respules 0.5 MG/2 ML AMPUL.NEB. INHALATION (07:05)
[2023-03-10 07:06] VITALS: PULSE 79; RESP 18; O2SAT 96
[2023-03-10] MEDS: Multivitamins,Therapeutic Tablet 1 TABLET PO (07:51)
[2023-03-10] MEDS: Menthol/Lanolin/Calamine/Znox 113 GM Tube 1 APPLIC TOPICAL (07:51)
[2023-03-10] MEDS: Chlorthalidone 50 MG Tablet 25 MG PO (07:52)
[2023-03-10] MEDS: Senna/Docusate Sodium 1 Tablet 2 TABLET PO ×2 (07:52→07:55)
[2023-03-10] MEDS: Sertraline 100 MG Tablet PO (07:54)
[2023-03-10] MEDS: Enoxaparin 40 MG/0.4 ML Syringe SC (07:55)
[2023-03-10] MEDS: Polyethylene Glycol 3350 17 GM PACKET PO (07:55)
[2023-03-10] MEDS: Famotidine 20 MG Tablet PO (07:56)
[2023-03-10 08:05] VITALS: BP 109/66; PULSE 82; RESP 16; TEMP 36.7; O2SAT 95
--- NOTE | 2023-03-10 08:34 | PN.HOSP_ITS ---
Reason for Visit Reason for Visit: Diagnoses Fracture of unspecified part of neck of unspecified femur, initial encounter for closed fracture (03/04/23) Subjective Subjective Complaining of ongoing abdominal pain from constipation, though improved. Objective Data Objective Data Vital Signs: Vital Signs Temp Pulse Resp BP Pulse Ox O2 Del Method O2 Flow Rate 36.7 C 82 16 109/66 95 Room Air 2 03/10/23 08:05 03/10/23 08:05 03/10/23 08:05 03/10/23 08:05 03/10/23 08:05 03/10/23 08:05 03/09/23 07:32 Oxygen Flow Rate (L/min) 2 Oxygen Delivery Method Room Air Weight: 73.527 kg Body Mass Index (BMI) 24.6 Intake & Output: Intake and Output for Last 24 Hours 03/08/23 03/09/23 03/10/23 23:59 23:59 23:59 Intake Total 990 / 990 300 / 300 200 / 200 Output Total 1150 / 1400 850 / 850 500 / 500 Balance -160 / -410 -550 / -550 -300 / -300 Medical Nutrition Assessment Dietitian: Malnutrition Criteria Met Start: 03/05/23 1 4:14 Freq: Status: Active Protocol: Document 03/09/23 12:34 RMA (Rec: 03/09/23 12:34 RMA [id number]) Nutrition Malnutrition Evidence of Malnutrition Exists Yes Malnutrition (severe): Chronic Evidenced By Suboptimal Energy Intake ( Severe),Weight Loss (Severe) Clinical Problem Chronic Disease or Condition Related Malnutrition Etiology Severe protein-calorie malnutrition in the context of chronic disease and debility related to inadequate oral intake and difficulty chewing Signs/Symptoms as evidenced by ~10% weight loss x 2 months and PO meeting less than 50% estimated nutrition needs x 2 months Status Active Problem Recommendation Dietitian Recommendations/Changes Continue regular/no added salt given CKD; consistency/ texture as per LEAD CARGO MOVER. Continue ensure compact TID w/ meals. Consider LEAD CARGO MOVER evaluation for reported chewing difficulty. Additional ONS as needed if PO at meals regresses. Monitor renal labs and need for further diet restrictions. Lab / Micro Data 03/07/23 05:42 03/07/23 05:42 Micro: Microbiology 03/05/23 14:55 Urine Catheter - Catheter Urine Culture - Final Culture exhibits no growth. Physical Exam Const alert and no apparent distress HEENT head/scalp atraumatic and moist oral mucous membranes Resp normal respiratory effort, no retractions, no use of accessory muscles and clear to auscultation bilaterally Cardio regular rate, regular rhythm, S1 normal heart sound and S2 normal heart sound GI normal to inspection, nondistended, normoactive bowel sounds, soft to palpation, non-tender and non-distended Assessment & Plan Assessment/Plan (1) Failed fixation of fracture: PLAN: Postoperative interval displacement of right femoral neck fracture, debility S/p percutaneous screw fixation of right femoral neck fracture on 02/07/2023 with orthopedic surgery. KUB on 03/04 done for concern for constipation incidentally showed right subcapital fracture with cephalic displacement of the distal fracture fragment and screw fixation device. Hip/pelvic x-ray in ED on 03/04 showed interval displacement of fracture of the subcapital femoral neck despite interval placement of 3 percutaneous screws. Orthopedic surgery following, s/p right total hip arthroplasty with Dr. Tristan on 03/05. PT/OT/case management following. Per orthopedics, implants are stable and patient is stable for discharge from their standpoint. For DVT prophylaxis, will start Xarelto 10 mg daily for 2 weeks postoperatively followed by aspirin 81 mg twice daily for 2 weeks on discharge. Outpatient follow-up with orthopedics in 2 weeks. (2) Constipation: PLAN: Constipation, improving; abdominal cramping Likely secondary to opiate use postoperatively. Appears that patient was on MiraLAX twice daily and senna twice daily, as well as magnesium citrate in the TCU. Unclear if he was having regular bowel movements. Patient notably did have a bowel movement prior to admission, as well as another small bowel movement on 03/05. KUB on 03/04 did show colonic distention, no concern for SBO. Continue scheduled MiraLAX, senna. Gave 3 doses of Dulcolax suppositories daily, last dose on 03/07. Patient not having regular bowel movements. Solange ordered for mild abdominal cramping on 03/09, can prescribe this on discharge. (3) Fever: PLAN: Transient Episode of fever Patient noted to have an episode of fever on morning of 03/07, had fever of 101.2F. Patient asymptomatic at that time. Vitals otherwise stable. WBC count mildly elevated but suspect this was secondary to postoperative changes. Chest x-ray normal on admit, UA normal on admit. No other clear source of infection. Patient was on scheduled Tylenol every 8 hours for pain control postoperatively. Needed to discontinue Tylenol as patient needs to remain afebrile for 24 hours prior to being discharged to the TCU. Unfortunately, patient received Tylenol on evening of 03/08 after it was discontinued, and thus could not be discharged to the TCU on 03/09. Tylenol discontinued, if remains afebrile through tomorrow, will be okay for discharge to TCU tomorrow. PLAN: Plan Chronic medical conditions: ? Aortic stenosis: Follows with Dr. Garcia. Recent cardiac cath showed moderate to severe aortic stenosis with pulm hypertension, nonobstructive coronary arteries. Notably was hospitalized last month for syncope due to complete heart block, was told at that time to follow-up in [place] for TAVR placement. ? Hypothyroidism: Continue home levothyroxine. ? Hypertension: Continue home chlorthalidone. ? Depression: Continue home sertraline. ? COPD: Continue home Spiriva, albuterol as needed. DVT prophylaxis: Lovenox CODE STATUS: Full code, verified Expected disposition: SNF (TCU),
[2023-03-10 09:07] VITALS: O2SAT 95
[2023-03-10] MEDS: Ferrous Sulfate 325 MG Tablet PO (11:09)
[2023-03-10 11:47] VITALS: BP 119/66; PULSE 81; RESP 16; TEMP 36.8; O2SAT 96
--- NOTE | 2023-03-10 11:51 | TREXTCAR_ITS ---
Diet Diet Order/Speech Therapy: 03/07/23 15:43 Diet: Regular - General Dietary Modifications:: No Added Salt Type of Dietary Supplement:: Ensure Compact Diet Comments: Ensure Compact TID w/ meals Routine Orders/Code Status Code Status: Full Code Wound(s) buttocks: Wound Type: Pressure Injury L lateral cota: Wound Type: Stasis Ulcer R lateral cota: Wound Type: Stasis Ulcer Dressing Change: adaptic R elbow\: Wound Type: Abrasion RIGHT HIP: Wound Type: Surgical Incision Therapies Weight Bearing: Weight bearing as tolerated Extremity Affected:: Right Lower Problem/Diagnosis (1) Failed fixation of fracture: Status: Acute Plan: Postoperative interval displacement of right femoral neck fracture, debility S/p percutaneous screw fixation of right femoral neck fracture on 02/07/2023 with orthopedic surgery. KUB on 03/04 done for concern for constipation incidentally showed right subcapital fracture with cephalic displacement of the distal fracture fragment and screw fixation device. Hip/pelvic x-ray in ED on 03/04 showed interval displacement of fracture of the subcapital femoral neck despite interval placement of 3 percutaneous screws. Orthopedic surgery following, s/p right total hip arthroplasty with Dr. Tristan on 03/05. PT/OT/case management following. Per orthopedics, implants are stable and patient is stable for discharge from their standpoint. For DVT prophylaxis, will start Xarelto 10 mg daily for 2 weeks postoperatively followed by aspirin 81 mg twice daily for 2 weeks on discharge. Outpatient follow-up with orthopedics in 2 weeks. (2) Constipation: Status: Acute Code(s): K59.00 - Constipation, unspecified Plan: Constipation, improving; abdominal cramping Likely secondary to opiate use postoperatively. Appears that patient was on MiraLAX twice daily and senna twice daily, as well as magnesium citrate in the TCU. Unclear if he was having regular bowel movements. Patient notably did have a bowel movement prior to admission, as well as another small bowel movement on 03/05. KUB on 03/04 did show colonic distention, no concern for SBO. Continue scheduled MiraLAX, senna. Gave 3 doses of Dulcolax suppositories daily, last dose on 03/07. Patient not having regular bowel movements. Solange ordered for mild abdominal cramping on 03/09, can prescribe this on discharge. (3) Fever: Status: Acute Code(s): R50.9 - Fever, unspecified Plan: Transient Episode of fever Patient noted to have an episode of fever on morning of 03/07, had fever of 101.2F. Patient asymptomatic at that time. Vitals otherwise stable. WBC count mildly elevated but suspect this was secondary to postoperative changes. Chest x-ray normal on admit, UA normal on admit. No other clear source of infection. Patient was on scheduled Tylenol every 8 hours for pain control postoperatively. Needed to discontinue Tylenol as patient needs to remain afebrile for 24 hours prior to being discharged to the TCU. Unfortunately, patient received Tylenol on evening of 03/08 after it was discontinued, and thus could not be discharged to the TCU on 03/09. Tylenol discontinued, if remains afebrile through tomorrow, will be okay for discharge to TCU tomorrow. Plan Chronic medical conditions: ? Aortic stenosis: Follows with Dr. Garcia. Recent cardiac cath showed moderate to severe aortic stenosis with pulm hypertension, nonobstructive coronary arteries. Notably was hospitalized last month for syncope due to complete heart block, was told at that time to follow-up in [place] for TAVR placement. ? Hypothyroidism: Continue home levothyroxine. ? Hypertension: Continue home chlorthalidone. ? Depression: Continue home sertraline. ? COPD: Continue home Spiriva, albuterol as needed. DVT prophylaxis: Lovenox CODE STATUS: Full code, verified Expected disposition: SNF (TCU), Allergies/Procedures Done in Hospital Allergies indomethacin [From Indocin] Adverse Reaction (Intermediate, Verified 03/04/23 20:42) Itching indomethacin sodium [From Indocin] Adverse Reaction (Intermediate, Verified 03/04/23 20:42) Itching oxycodone HCl [From Percocet] Adverse Reaction (Intermediate, Verified 03/04/23 20:42) Itching Procedures: - (Total hip replacement) Type of Care/Length of Stay Estimated LOS: Convalescent Care Less Than 30 days Type of Care Needed: Skilled Rehab Potential: Fair Prognosis: Fair Additional Orders/Day of Discharge H&P will serve as current which was dated: 03/04/23 Day of Discharge: 03/08/23 Dietary and Speech Recommendations Dietitian Recommendations/Changes: Continue regular/no added salt given CKD; consistency/texture as per HEALTH DIAGNOSTICS TEACHER. Continue ensure compact TID w/ meals. Consider HEALTH DIAGNOSTICS TEACHER evaluation for reported chewing difficulty. Additional ONS as needed if PO at meals regresses. Monitor renal labs and need for further diet restrictions. Follow Up Care Please Follow Up With: Angelique Grossman MD Please Follow Up With: Stanley Tristan MD When: 2 weeks Discharge Plan Admission Admit Date/Time: 03/04/23 21:52 Primary Reason for Your Visit: Right hip repair failure Attending Provider: Darius Ceballos Primary Care Provider: Angelique Grossman Consulting Providers: Neil Vargas; Stanley Tristan; Carlo Edwards Instructions Additional Instructions / Restrictions: New medications: ? Xarelto 10 mg daily for 2 weeks, followed by ? Aspirin 81 mg twice daily for 2 weeks, for postoperative DVT prophylaxis ? MiraLAX 17 g daily ? Senna 1 tablet twice daily Continue all other home medications as normal. Follow-up with your primary care doctor as needed. The orthopedic surgery office will call you to schedule a follow-up appointment. Discharge Orders/Prescriptions Prescriptions: New polyethylene glycol 3350 17 gram Powder In Packet 17 g PO DAILY 30 Days Qty: 30 0RF sennosides-docusate sodium [Stool Softener-Stimulant Laxat] 8.6-50 mg Tablet 1 tab PO BID 30 Days Qty: 60 0RF Xarelto 10 mg tablet 10 mg PO DAILY 14 Days Qty: 14 0RF aspirin 81 mg tablet,delayed release (DR/EC) 81 mg PO BID 14 Days Qty: 28 0RF Continued multivitamin Tablet 1 tab PO QAM montelukast 10 mg tablet 10 mg PO QPM Qty: 30 3RF ferrous sulfate [FeroSul] 325 mg (65 mg iron) tablet 325 mg PO DAILY epinephrine 0.3 MG/0.3 ML auto-injector 0.3 mg IJ PRN PRN (Reason: Anaphylaxis) acetaminophen 500 MG tablet 1,000 mg PO BID PRN PRN (Reason: Pain) albuterol sulfate 2.5 mg /3 mL (0.083 %) solution for nebulization 2.5 mg INHALATION Q6H PRN (Reason: shortness of breath or wheezing) hydrocodone-acetaminophen 5-325 mg Tablet 1 tab PO Q6H PRN PRN (Reason: Pain Score 6-10) 3 Days Qty: 15 0RF sertraline 100 mg tablet 100 mg PO DAILY Qty: 90 1RF fluticasone propionate 50 mcg/actuation spray,suspension 2 spray intranasal DAILY Qty: 16 3RF chlorthalidone 25 mg tablet 25 mg PO DAILY Qty: 90 3RF nystatin-triamcinolone 100,000-0.1 unit/g-% cream 1 applic topical BID PRN (Reason: rash) Qty: 30 1RF levothyroxine 75 mcg tablet 75 mcg PO DAILY Qty: 90 3RF fluticasone propion-salmeterol 230-21 mcg/actuation HFA aerosol inhaler 2 puff INHALATION BID Qty: 1 11RF Spiriva Respimat 2.5 mcg/actuation mist 2 puff INHALATION QDAY Qty: 1 11RF albuterol sulfate 90 mcg/actuation HFA aerosol inhaler 2 puff INHALATION Q4H PRN PRN (Reason: Sob &/Or Wheezing) Qty: 1 6RF nitroglycerin 0.4 mg tablet, sublingual 0.4 mg sublingual Q5-15M PRN (Reason: CHEST PAIN) Qty: 25 3RF famotidine 40 mg tablet 40 mg PO DAILY Qty: 90 3RF Discontinued enoxaparin 40 mg/0.4 mL Syringe 40 mg subcut DAILY 30 Days Qty: 12 0RF polyethylene glycol 3350 17 gram Powder In Packet 17 g PO BID 7 Days Qty: 30 0RF levofloxacin 750 mg Tablet 750 mg PO DAILY 6 Days Qty: 6 0RF Referrals / Follow Up: Angelique Grossman MD [Primary Care Provider] - Within 2 Weeks Stanley Tristan MD [Med Staff - Active Staff] - Within 2 Weeks Disposition Disposition (needs filled in before D/C Order can be placed): [facility] Facility
--- NOTE | 2023-03-10 11:54 | DS.PCM_ITS ---
Providers Date of Admission: 03/04/23 Primary Care Physician: Dr. 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 KUB on 03/04 done for concern for constipation incidentally showed right subcapital fracture with cephalic displacement of the distal fracture fragment and screw fixation device. Hip/pelvic x-ray in ED on 03/04 showed interval displacement of fracture of the subcapital femoral neck despite interval placement of 3 percutaneous screws. Orthopedic surgery following, s/p right total hip arthroplasty with Dr. Tristan on 03/05. PT/OT/case management following. Per orthopedics, implants are stable and patient is stable for discharge from their standpoint. For DVT prophylaxis, will start Xarelto 10 mg daily for 2 weeks postoperatively followed by aspirin 81 mg twice daily for 2 weeks on discharge. Outpatient follow-up with orthopedics in 2 weeks. (2) Constipation: Status: Acute Code(s): K59.00 - Constipation, unspecified Plan: Constipation, improving; abdominal cramping Likely secondary to opiate use postoperatively. Appears that patient was on Reji aLAX twice daily and senna twice daily, as well as magnesium citrate in the TCU. Unclear if he was having regular bowel movements. Patient notably did have a bowel movement prior to admission, as well as another small bowel movement on 03/05. KUB on 03/04 did show colonic distention, no concern for SBO. Continue scheduled MiraLAX, senna. Gave 3 doses of Dulcolax suppositories daily, last dose on 03/07. Patient not having regular bowel movements. Bentyl ordered for mild abdominal cramping on 03/09, can prescribe this on discharge. (3) Fever: Status: Acute Code(s): R50.9 - Fever, unspecified Plan: Transient Episode of fever Patient noted to have an episode of fever on morning of 03/07, had fever of 101.2F. Patient asymptomatic at that time. Vitals otherwise stable. WBC count mildly elevated but suspect this was secondary to postoperative changes. Chest x-ray normal on admit, UA normal on admit. No other clear source of infection. Patient was on scheduled Tylenol every 8 hours for pain control postoperatively. Needed to discontinue Tylenol as patient needs to remain afebrile for 24 hours prior to being discharged to the TCU. Unfortunately, patient received Tylenol on evening of 03/08 after it was discontinued, and thus could not be discharged to the TCU on 03/09. Tylenol discontinued, if remains afebrile through to shah, will be okay for discharge to TCU tomorrow. Plan Chronic medical conditions: ? Aortic stenosis: Follows with Dr. Garcia. Recent cardiac cath showed moderate to severe aortic stenosis with pulm hypertension, nonobstructive coronary arteries. Notably was hospitalized last month for syncope due to complete heart block, was told at that time to follow-up in [place] for TAVR placement. ? Hypothyroidism: Continue home levothyroxine. ? Hypertension: Continue home chlorthalidone. ? Depression: Continue home sertraline. ? COPD: Continue home Spiriva, albuterol as needed. DVT prophylaxis: Lovenox CODE STATUS: Full code, verified Expected disposition: SNF (TCU), Medications at Discharge Home Medications acetaminophen 500 mg tablet 1,000 mg PO BID PRN PRN Pain 12/04/18 epinephrine 0.3 mg/0.3 mL injection, auto-injector 0.3 mg IJ PRN PRN Anaphylaxis 12/04/18 multivitamin 1 tab PO QAM vitamin 04/19/19 sertraline 100 mg tablet 100 mg PO DAILY mental health #90 tabs 06/10/22 fluticasone propionate 50 mcg/actuation nasal spray,suspension 2 spray intranasal DAILY allergies #16 grams 06/27/22 chlorthalidone 25 mg tablet 25 mg PO DAILY blood pressure #90 tabs 07/08/22 nystatin-triamcinolone 100,000 unit/g-0.1 % topical cream 1 applic topical BID PRN rash #30 grams 07/25/22 levothyroxine 75 mcg tablet 75 mcg PO DAILY thyroid #90 tabs 08/12/22 fluticasone propionate 230 mcg-salmeterol 21 mcg/actuation HFA inhaler 2 puff inhalation BID breathing #1 device 08/23/22 tiotropium bromide 2.5 mcg/actuation mist for inhalation (Spiriva Respimat) 2 puff inhalation QDAY breathing #1 ea 08/23/22 montelukast 10 mg tablet 10 mg PO QPM allergies #30 tabs 09/27/22 albuterol sulfate 90 mcg/actuation aerosol inhaler 2 puff inhalation Q4H PRN PRN Sob &/Or Wheezing #1 ea 10/29/22 ferrous sulfate 325 mg (65 mg iron) tablet (FeroSul) 325 mg PO DAILY iron 11/29/22 nitroglycerin 0.4 mg sublingual tablet 0.4 mg sublingual Q5-15M PRN CHEST PAIN #25 tabs 12/02/22 famotidine 40 mg tablet 40 mg PO DAILY reflux #90 tabs 01/02/23 albuterol sulfate 2.5 mg/3 mL (0.083 %) solution for nebulization 2.5 mg inhalation Q6H PRN shortness of breath or wheezing 01/30/23 hydrocodone-acetaminophen 5-325mg 5mg-325mg 1 tab PO Q6H PRN PRN Pain Score 6-10 3 days #15 tabs 02/11/23 aspirin 81 mg tablet,delayed release 81 mg PO BID 2 weeks #28 tabs 03/08/23 polyethylene glycol 3350 17 gram oral powder packet 17 g PO DAILY 30 days #30 ea 03/08/23 rivaroxaban 10 mg tablet (Xarelto) 10 mg PO DAILY 2 weeks #14 tabs 03/08/23 sennosides 8.6 mg-docusate sodium 50 mg tablet (Stool Softener-Stimulant Laxative) 1 tab PO BID 30 days #60 tabs 03/08/23 Hospital Course Operations - (1. Removal of hardware right hip 2. Right hip hemiarthroplasty) Procedures None Summary of Care Provided Minutes Spent on Discharge: 32 Medical Records Data Medical Nutrition Assessment Dietitian: Malnutrition Criteria Met Start: 03/05/23 14:14 Freq: Status: Active Protocol: Document 03/09/23 12:34 RMA (Rec: 03/09/23 12:34 RMA [id number]) Nutrition Malnutrition Evidence of Malnutrition Exists Yes Malnutrition (severe): Chronic Evidenced By Suboptimal Energy Intake ( Severe),Weight Loss (Severe) Clinical Problem Chronic Disease or Condition Related Malnutrition Etiology Severe protein-calorie malnutrition in the context of chronic disease and debility related to inadequate oral intake and difficulty chewing Signs/Symptoms as evidenced by ~10% weight loss x 2 months and PO meeting less than 50% estimated nutrition needs x 2 months Status Active Problem Recommendation Dietitian Recommendations/Changes Continue regular/no added salt given CKD; consistency/ texture as per OPERATOR AND TRUCK DRIVER. Continue ensure compact TID w/ meals. Consider OPERATOR AND TRUCK DRIVER evaluation for reported chewing difficulty. Additional ONS as needed if PO at meals regresses. Monitor renal labs and need for further diet restrictions. Weight / BMI Weight Weight: 73.527 kg Body Mass Index (BMI) 24.6 ABG / Lab / Microbiology Data 03/07/23 05:42 03/07/23 05:42 Microbiology: Microbiology 03/05/23 14:55 Urine Catheter - Catheter Urine Culture - Final Culture exhibits no growth. D/C Instructions Discharge Diet: No restrictions and - (Ensure compact 3 times daily with meals) Weight Bearing Status: Full weight bearing Pending Tests Upon Discharge: None Please Follow Up With: Angelique Grossman MD When: As needed Meaningful Use Info Meaningful Use Diagnoses (Choose all that apply): None applicable Discharge Plan Admission Admit Date/Time: 03/04/23 21:52 Primary Reason for Your Visit: Right hip repair failure Attending Provider: Darius Ceballos Primary Care Provider: Angelique Grossman Consulting Providers: Neil Vragas; Stanley Tristan; Carlo Edwards Instructions Additional Instructions / Restrictions: New medications: ? Xarelto 10 mg daily for 2 weeks, followed by ? Aspirin 81 mg twice daily for 2 weeks, for postoperative DVT prophylaxis ? MiraLAX 17 g daily ? Senna 1 tablet twice daily Continue all other home medications as normal. Follow-up with your primary care doctor as needed. The orthopedic surgery office will call you to schedule a follow-up appointment. Discharge Orders/Prescriptions Prescriptions: New polyethylene glycol 3350 17 gram Powder In Packet 17 g PO DAILY 30 Days Qty: 30 0RF sennosides-docusate sodium [Stool Softener-Stimulant Laxat] 8.6-50 mg Tablet 1 tab PO BID 30 Days Qty: 60 0RF Xarelto 10 mg tablet 10 mg PO DAILY 14 Days Qty: 14 0RF aspirin 81 mg tablet,delayed release (DR/EC) 81 mg PO BID 14 Days Qty: 28 0RF Continued multivitamin Tablet 1 tab PO QAM montelukast 10 mg tablet 10 mg PO QPM Qty: 30 3RF ferrous sulfate [FeroSul] 325 mg (65 mg iron) tablet 325 mg PO DAILY epinephrine 0.3 MG/0.3 ML auto-injector 0.3 mg IJ PRN PRN (Reason: Anaphylaxis) acetaminophen 500 MG tablet 1,000 mg PO BID PRN PRN (Reason: Pain) albuterol sulfate 2.5 mg /3 mL (0.083 %) solution for nebulization 2.5 mg INHALATION Q6H PRN (Reason: shortness of breath or wheezing) hydrocodone-acetaminophen 5-325 mg Tablet 1 tab PO Q6H PRN PRN (Reason: Pain Score 6-10) 3 Days Qty: 15 0RF sertraline 100 mg tablet 100 mg PO DAILY Qty: 90 1RF fluticasone propionate 50 mcg/actuation spray,suspension 2 spray intranasal DAILY Qty: 16 3RF chlorthalidone 25 mg tablet 25 mg PO DAILY Qty: 90 3RF nystatin-triamcinolone 100,000-0.1 unit/g-% cream 1 applic topical BID PRN (Reason: rash) Qty: 30 1RF levothyroxine 75 mcg tablet 75 mcg PO DAILY Qty: 90 3RF fluticasone propion-salmeterol 230-21 mcg/actuation HFA aerosol inhaler 2 puff INHALATION BID Qty: 1 11RF Spiriva Respimat 2.5 mcg/actuation mist 2 puff INHALATION QDAY Qty: 1 11RF albuterol sulfate 90 mcg/actuation HFA aerosol inhaler 2 puff INHALATION Q4H PRN PRN (Reason: Sob &/Or Wheezing) Qty: 1 6RF nitroglycerin 0.4 mg tablet, sublingual 0.4 mg sublingual Q5-15M PRN (Reason: CHEST PAIN) Qty: 25 3RF famotidine 40 mg tablet 40 mg PO DAILY Qty: 90 3RF Discontinued enoxaparin 40 mg/0.4 mL Syringe 40 mg subcut DAILY 30 Days Qty: 12 0RF polyethylene glycol 3350 17 gram Powder In Packet 17 g PO BID 7 Days Qty: 30 0RF levofloxacin 750 mg Tablet 750 mg PO DAILY 6 Days Qty: 6 0RF Referrals / Follow Up: Angelique Grossman MD [Primary Care Provider] - Within 2 Weeks Stanley Tristan MD [Med Staff - Active Staff] - Within 2 Weeks Disposition Disposition (needs filled in before D/C Order can be placed): [facility] Charges/Coding Visit Charges Inpatient E&M: 07375 Disch Hosp >30min
--- NOTE | 2023-03-10 12:25 | CASEMGMT ---
Social Work SW spoke with Penelope in TCU and they are able to accept pt today. Physician updated and feels pt is ready for dc today. Discharge orders faxed to TCU. SW met with pt and updated that he will dc to TCU today and pt is agreeable. With pt permission, phone call to pt and updated. Plan: TCU, skilled level of care [facility]
== END 2023-03-10 13:10 | disposition skilled nursing facility (03) ==
LOC: ED 21:45 → MS3 22:11
PROVIDERS: Hospitalist; Specialist; Admitting Provider Internal Medicine; Emergency Provider Emergency Medicine; PCP Internal Medicine
PROC: 0SR90JZ Replacement of Right Hip Joint with Synthetic Substitute, Open Approach (ICD-10-PCS; CPT 27130; principal; 2023-03-05 15:05)
DX: M96.661 Fracture of femur following insertion of orthopedic implant, joint prosthesis, or bone plate, right leg (principal); J44.9 Chronic obstructive pulmonary disease, unspecified; N18.30 Chronic kidney disease, stage 3 unspecified; I35.0 Nonrheumatic aortic (valve) stenosis; D50.0 Iron deficiency anemia secondary to blood loss (chronic); K59.00 Constipation, unspecified; Z95.0 Presence of cardiac pacemaker; E78.5 Hyperlipidemia, unspecified; D63.1 Anemia in chronic kidney disease; I87.2 Venous insufficiency (chronic) (peripheral); F32.A Depression, unspecified; I12.9 Hypertensive chronic kidney disease with stage 1 through stage 4 chronic kidney disease, or unspecified chronic kidney disease; Z79.51 Long term (current) use of inhaled steroids; R53.81 Other malaise; E03.9 Hypothyroidism, unspecified; Z79.899 Other long term (current) drug therapy; R50.9 Fever, unspecified; Z79.890 Hormone replacement therapy
CPT/HCPCS: 27132; 01215; 96361 ×2; 96365; 96366 ×2; 96372 ×6; 96375; 96376 ×2; 99284; 36415; 71045; 73502; 80048; 81002; 85025; 85027; 87086; 88305; 88311; 93005; 94640; 94668; 97110; 97116; 97162; 97166; 97530; 97535; 97802; 99221; 99252; C1776; J7040; J7120; A4216; G0378; G0463; J2405

== ENCOUNTER 2023-03-10 13:27 | Inpatient (IN) | payer MEDICARE, SELFPAY ==
[2023-03-10 13:31] VITALS: BP 118/69; PULSE 82; RESP 16; TEMP 36.6; O2SAT 97; BMI 28.3
[2023-03-10 14:19] VITALS: BMI 28.3
--- NOTE | 2023-03-10 15:39 | NURSING ---
POD#5 upon admission. Orders to remove surgical dressing. Dressing removed and incision is well approximated and sutures intact. No redness noted to site and scant amount of bleeding to incision when dressing removed. ABD placed over site. Minimal edema to incision site.
[2023-03-10] MEDS: Piperacil/Tazobactam 3.375 GM in 0.9% Normal Saline (50mL MB+) 50 ML IV (18:38)
[2023-03-10] MEDS: 0.9% Normal Saline 250 ML IV.SOLN. IV (18:40)
[2023-03-10] MEDS: SimETHICONE 80 MG Chewable Tablet PO ×2 (18:41→20:43)
[2023-03-10] MEDS: Magnesium Citrate 300 ML PO (18:41)
[2023-03-10] MEDS: Menthol/Lanolin/Calamine/Znox 113 GM Tube 1 APPLIC TOPICAL ×2 (18:58→20:41)
--- NOTE | 2023-03-10 19:24 | PCM.HP.STD ---
HPI - General General Date of Admission: 03/10/23 Date of Service: 03/10/23 Chief Complaint: Here for rehabilitation. HPI Narrative 03/04/2023 CARISSA VANG, is a 82 Male who presents to [facility] Emergency Department, TCU resident with right hip fracture s/p percutaneous screw fixation. X-ray shows displacement of right hip fracture despite 3 pins. Admit to Hospital. PT/OT, Orthopedics for displaced right hip fracture after percutaneous screw fixation. Miralax, Senna/colace, Magnesium citrate for constipation. 03/05/2023 Constipation improved. 03/05/2023 Dr. Tristan performed removal of hardware, right hip hemiarthroplasty. 03/06/2023 Mild right hip pain. Tylenol, Oxcodone for pain. Xarelto 10mg daily x 2 weeks, then Aspirin 81mg bid x 2 weeks for DVT prophylaxis. Dulcolax x 3 doses daily for constipation. 03/07/2023 Temperature 101.2, Monitor overnight, prior to discharge to TCU. 03/09/2023 Mild abdominal pain with bowel movement. Fever, WBC elevated, unknown source of fever. Hold Tylenol, monitor. 03/10/2023 Admit to TCU with debility, here for rehabilitation, strengthening, prior to discharge home with . On arrival, resident has distended abdomen, diffuse abdominal pain. [facility] Medical History (Updated 03/10/23 @ 19:[address] Bon Alvarez MD) Allergic rhinitis Anemia of chronic renal failure, stage 3 (moderate) Arthritis Atrial fibrillation and flutter Bruising Cellulitis and abscess of right leg Cellulitis of left leg Cellulitis of right lower extremity Chronic asthma Chronic 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 Coronary heart disease Degenerative joint disease of knee, right Diverticulosis Diverticulosis Essential (primary) hypertension Gout Hay fever History of deep vein thrombosis of lower extremity HLD (hyperlipidemia) Hypothyroidism Iron deficiency anemia due to chronic blood loss Left ventricular diastolic dysfunction Leg wound, left Macular degeneration Non-pressure chronic ulcer of left calf with fat layer exposed Nonrheumatic aortic (valve) stenosis Osteoarthritis Pleural plaque Presence of cardiac pacemaker Pulmonary nodule Right knee DJD Secondary pulmonary arterial hypertension Skin cancer Traumatic open wound of right lower leg with infection Venous ulcer with fat layer exposed Home Medications acetaminophen 500 mg tablet 1,000 mg PO BID PRN PRN Pain 12/04/18 [History Last Taken 12/03/18] epinephrine 0.3 mg/0.3 mL injection, auto-injector 0.3 mg IJ PRN PRN Anaphylaxis 12/04/18 [History Last Taken Unknown] multivitamin 1 tab PO QAM vitamin 04/19/19 [History Last Taken 03/10/23] sertraline 100 mg tablet 100 mg PO DAILY mental health #90 tabs 06/10/22 [Rx Last Taken 03/10/23] fluticasone propionate 50 mcg/actuation nasal spray,suspension 2 spray intranasal DAILY allergies #16 grams 06/27/22 [Rx Last Taken Unknown] chlorthalidone 25 mg tablet 25 mg PO DAILY blood pressure #90 tabs 07/08/22 [Rx Last Taken 03/10/23] nystatin-triamcinolone 100,000 unit/g-0.1 % topical cream 1 applic topical BID PRN rash #30 grams 07/25/22 [Rx Last Taken Unknown] levothyroxine 75 mcg tablet 75 mcg PO DAILY thyroid #90 tabs 08/12/22 [Rx Last Taken 03/10/23] fluticasone propionate 230 mcg-salmeterol 21 mcg/actuation HFA inhaler 2 puff inhalation BID breathing #1 device 08/23/22 [Rx Last Taken 02/06/23] tiotropium bromide 2.5 mcg/actuation mist for inhalation (Spiriva Respimat) 2 puff inhalation QDAY breathing #1 ea 08/23/22 [Rx Last Taken 02/06/23] montelukast 10 mg tablet 10 mg PO QPM allergies #30 tabs 09/27/22 [Rx Last Taken 03/09/23] albuterol sulfate 90 mcg/actuation aerosol inhaler 2 puff inhalation Q4H PRN PRN Sob &/Or Wheezing #1 ea 10/29/22 [Rx Last Taken Unknown] ferrous sulfate 325 mg (65 mg iron) tablet (FeroSul) 325 mg PO DAILY iron 11/29/22 [History Last Taken 03/10/23] nitroglycerin 0.4 mg sublingual tablet 0.4 mg sublingual Q5-15M PRN CHEST PAIN #25 tabs 12/02/22 [Rx Last Taken Unknown] famotidine 40 mg tablet 40 mg PO DAILY reflux #90 tabs 01/02/23 [Rx Last Taken 02/06/23] albuterol sulfate 2.5 mg/3 mL (0.083 %) solution for nebulization 2.5 mg inhalation Q6H PRN shortness of breath or wheezing 01/30/23 [History Last Taken 02/06/23] hydrocodone-acetaminophen 5-325mg 5mg-325mg 1 tab PO Q6H PRN PRN Pain Score 6-10 3 days #15 tabs 02/11/23 [Rx Last Taken Unknown] aspirin 81 mg tablet,delayed release 81 mg PO BID blood thinner 2 weeks #28 tabs 03/08/23 [Rx Last Taken Unknown] polyethylene glycol 3350 17 gram oral powder packet 17 g PO DAILY bowels 30 days #30 ea 03/08/23 [Rx Last Taken Unknown] rivaroxaban 10 mg tablet (Xarelto) 10 mg PO DAILY blood thinner 2 weeks #14 tabs 03/08/23 [Rx Last Taken Unknown] sennosides 8.6 mg-docusate sodium 50 mg tablet (Stool Softener-Stimulant Laxative) 1 tab PO BID bowels 30 days #60 tabs 03/08/23 [Rx Last Taken Unknown] Allergy/AdvReac Type Severity Reaction Status Date / Time indomethacin [From Indocin] AdvReac Intermediate Itching Verified 03/04/23 20:42 indomethacin sodium AdvReac Intermediate Itching Verified 03/04/23 20:42 [From Indocin] oxycodone HCl [From Percocet] AdvReac Intermediate Itching Verified 03/04/23 20:42 Family History Father Heart disease Colon cancer Sister Diabetes Mother Breast cancer Surgical History H/O hernia repair H/O prostatectomy H/O shoulder surgery H/O total knee replacement History of appendectomy History of appendectomy History of carpal tunnel surgery History of hernia repair History of left heart catheterization (02/25/22) History of prostatectomy History of total knee replacement History of total left hip replacement History of total left hip replacement Social History household members: spouse housing: house Smoking Status: Never smoker second hand exposure: Yes alcohol intake: current alcohol intake frequency: holidays/special occasions only Alcohol type: beer substance use type: does not use caffeine: Yes Type: coffee Number of servings: 2 what type of physical activity do you participate in: walking frequency: daily giancarlo/anglican: Worship seatbelt use: always do you feel safe at home: Yes ROS Constitutional Constitutional: Denies chills, fever(s) or weight gain ENT HEENT: Denies headache(s), nasal congestion or nasal discharge Cardiovascular Cardiovascular: Denies chest pain or palpitations Respiratory/Chest Respiratory/Chest: Denies cough, excessive phlegm production or shortness of breath with exertion Gastrointestinal Gastrointestinal: Denies abdominal pain, nausea or vomiting Genitourinary Genitourinary: Denies dysuria Musculoskeletal Musculoskeletal: Denies joint pain or joint swelling Integumentary Integumentary: Denies rash or wounds Neurologic Neurologic: Denies focal weakness, numbness or tingling Psychiatric Psychiatric: Denies anxiety, auditory hallucinations, depression, homicidal ideation or suicidal ideation Vital Signs Vital Signs Vital Signs: 03/10/23 13:31 03/10/23 13:31 Temperature 97.9 F Temperature Source Temporal Pulse Rate 82 Pulse Rhythm Regular Pulse Strength Normal (2+) Respiratory Rate 16 Respiratory Effort Normal Non-Labored Respiratory Depth Normal Respiratory Pattern Normal Blood Pressure 118/69 Blood Pressure Mean 85 Blood Pressure Source Monitor Blood Pressure Position Semi-Fowlers Blood Pressure Location Right Arm Pulse Ox 97 Oxygen Delivery Method Room Air Room Air Weight Weight: 77.292 kg Body Mass Index (BMI) 28.3 Physical Exam Const alert General Appearance: cooperative HEENT normocephalic Eyes PERRL and EOMs intact bilaterally Neck supple, no JVD and no carotid bruits Resp normal respiratory effort, normal air movement and clear to auscultation bilaterally Cardio regular rate and regular rhythm GI GI Narrative: Distended, pain left lower quadrant with palpation. Auscultation: hypoactive bowel sounds Palpation: tender LLQ Extremity normal capillary refill General Extremity: Negative for edema Skin no rashes or lesions noted General Skin Exam: no breakdown Psych affect normal Appearance: appropriate Assessment & Plan Assessment/Plan (1) Debility: (2) Closed hip fracture: (3) Failed fixation of fracture: (4) Status post hip hemiarthroplasty: (5) Constipation: (6) Severe aortic stenosis: (7) Asthma: QUALIFIERS: Asthma complication type: unspecified Asthma severity: unspecified severity (8) COPD (chronic obstructive pulmonary disease): (9) Hypertension: (10) GERD (gastroesophageal reflux disease): (11) Iron deficiency anemia: (12) Allergic rhinitis: (13) Depression: PLAN: Plan 82 year old male with below past medical history hospitalized for failed right hip fracture fixation, underwent right hip hemiarthroplasty 03/05/[address] Tristan, complicated by abdominal pain, fever, constipation, admitted to TCU with debility, here for rehabilitation, strengthening, prior to discharge home with . Debility - PT/OT. Pain - Tylenol 1000mg q6 prn pain (1-5), Oxycodone 5mg q4h prn pain (6-10). Bowel - Miralax 17gm daily, Senna/colace 2 tablets bid, Magnesium citrate 300ml po x 1 dose, Soap Suds enema. Adult immunization - Administer pneumonia vaccine, covid19 vaccine, flu vaccine as appropriate. DVT prophylaxis - Xarelto 10mg daily thru 03/24/2023, then Aspirin 81mg bid thru 04/07/2023. COPD - Advair 2 puffs bid, Incruse 1 puff daily, Albuterol 2.5mg q6h prn, Albuterol mdi 2 puffs q4h prn. Hypertension - Chlorthalidone 25mg daily. Nutrition - Ensure Plus 120ml tidcd, MVI daily. Anaphylaxis - Epipen 0.3mg im prn. GERD - Famotidine 40mg daily. Iron deficiency anemia - Ferrous sulfate 325mg daily. Allergic rhinitis - Flonase 2 sprays daily prn. Asthma - Advair 2 puffs bid, Singulair 10mg daily, Albuterol 2.5mg q6h prn, Albuterol mdi 2 puffs q4h prn. Hypothyroidism - Levothyroxine 75mcg daily. Skin irritation - Calmoseptine topical bid, Petrolatum topical bid. Coronary artery disease - NTG 0.4mg sl q5m prn. Tinea Corporis- Lotrisone topical bid prn. Diverticulitis/Colitis - CT Abdomen/pelvis, Zosyn 3.375gm iv q8 thru 03/17/2023. Gas - Simethicone 80mg pchs. 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
--- NOTE | 2023-03-10 19:45 | NURSING ---
Patient requested to see nurse. When this nurse entered room, patient stated that he could not finish his drink as it was making him nauseous. The drink consisted of Mag Citrate and Cranberry juice given by previous nurse. Mag citrate had been ordered due to patient not having BM recently, and stomach noted to be distended and diffuse pain. Bowel sounds are present in all quadrants. Soap Suds enema administered. Patient tolerated administration, but unable to hold most of enema. Small amount of stool noted to pass. Will continue to monitor.
[2023-03-10] MEDS: Montelukast 10 MG Tablet PO (20:41)
[2023-03-10] MEDS: Petrolatum 33% Tube 1 APPLIC TOPICAL (20:41)
[2023-03-10] MEDS: Fluticasone/Salmeterol 232-14 Inhaler 2 PUFF INHALATION (20:42)
[2023-03-10] MEDS: oxyCODONE 5 MG Tablet PO (20:42)
[2023-03-10] MEDS: Senna/Docusate Sodium 1 Tablet 2 TABLET PO (20:42)
[2023-03-11] MEDS: Piperacil/Tazobactam 3.375 GM in 0.9% Normal Saline (50mL MB+) 50 ML IV ×3 (00:05→14:36)
[2023-03-11] MEDS: oxyCODONE 5 MG Tablet PO ×4 (03:41→23:31)
[2023-03-11 05:29] LABS: Absolute Lymphocyte Count 0.42 X10^3/uL (0.83-4.51); Absolute Neutrophil Count 3.6 X10^3/uL (2.0-7.7); Basophil# 0.01 X10^3/uL; Basophil% 0.2 % (0-1); Eosinophil# 0.03 X10^3/uL; Eosinophils% 0.6 % (0-5); Hematocrit 28.8 % (40-54); Hemoglobin 9.1 g/dL (13.0-16.5); Lymphocyte # 0.42 X10^3/ul (0.83-4.51); Lymphocyte % 8.8 % (19-41); Mean Corp Hgb Conc 31.6 g/dL (32-36); Mean Corpuscular Volume 88.6 fL (80-94); Mean Platelet Vol. 9.3 fl (6.2-12.0); Monocyte% 12.6 % (0-10); NRBC Flagged by Analyzer 0 % (0-5); Neutrophil # 3.62 X10^3/uL (2.7-7.7); Neutrophil % 76.1 % (47-70); POSITIVE DIFFERENTIAL YES; Platelet Count 216 K/mm3 (150-450); RBC Distribution Width CV 14.9 % (11.6-14.6); RBC Distribution Width SD 48.5 fl (35.1-43.9); Red Blood Count 3.25 M/mm3 (4.6-6.2); White Blood Count 4.8 K/mm3 (4.4-11.0)
[2023-03-11 05:30] LABS: Differential Indicated SCAN CRITERIA MET
[2023-03-11 05:51] LABS: Anion Gap 7 (5-15); BUN 41 mg/dL (7-18); BUN/Creat Ratio 28.3 RATIO (10-20); Calcium,Total 8.4 mg/dL (8.5-10.1); Chloride 98 mmol/L (98-107); Creatinine, Serum 1.45 mg/dL (0.70-1.30); EST Glomerular Filtration Rate 49 mL/min (>60); Est Glom Filt Rate - Afr Amer 60 mL/min (>60); Estimated Creatinine Clearance 32.99 ml/min; Glucose 120 mg/dL (74-106); Potassium 3.6 mmol/L (3.5-5.1); Sodium Level 132 mmol/L (136-145)
[2023-03-11 06:50] LABS: Differential Comment SCANNED
--- NOTE | 2023-03-11 08:08 | PHA.CONS_ITS ---
Documented by User: He Wayne 03/11/23 09:57 TCU RX Drug Regimen Review Subjective/Objective Subjective/Objective: Subjective: 82 year old male with below past medical history hospitalized for failed right hip fracture fixation, underwent right hip hemiarthroplasty 03/05/[address] Tristan, complicated by abdominal pain, fever, constipation, admitted to TCU with debility, here for rehabilitation, strengthening, prior to discharge home with . Objective: Allergies indomethacin [From Indocin] Adverse Reaction (Intermediate, Verified 03/04/23 20:42) Itching indomethacin sodium [From Indocin] Adverse Reaction (Intermediate, Verified 03/04/23 20:42) Itching oxycodone HCl [From Percocet] Adverse Reaction (Intermediate, Verified 03/04/23 20:42) Itching Current Medications Generic Name Dose Route Start Last Admin Trade Name Freq PRN Reason Stop Dose Admin Acetaminophen 1,000 mg 03/10/23 19:46 Acetaminophen 500 Mg Tablet PO Q6H PRN PRN Pain Score 1-5 Albuterol Sulfate 2.5 mg 03/10/23 13:46 Albuterol 2.5 Mg/3 Ml Vial.Neb. INHALATION Q6H PRN shortness of breath or wheezing Albuterol Sulfate 2 puff 03/10/23 14:06 Albuterol Ih (6.7 Gm) 1 Puff Inhaler INHALATION Q4H PRN PRN Sob &/Or Wheezing Aspirin 81 mg 03/25/23 10:00 Aspirin E.C. 81 Mg Tablet PO 04/07/23 22:01 BID SWATHI Calamine/Phenol 1 applic 03/10/23 15:35 03/10/23 20:41 Menthol/Lanolin/Calamine/Znox 113 Gm Tube TOPICAL 1 applic BID [facility] Administration Protocol Chlorthalidone 25 mg 03/11/23 10:00 Chlorthalidone 50 Mg Tablet PO DAILY SWATHI Epinephrine HCl 0.3 mg 03/10/23 13:46 Epi Pen (Equiv) 0.3 Mg Syringe IM PRN PRN Anaphylaxis Famotidine 40 mg 03/11/23 10:00 Famotidine 20 Mg Tablet PO DAILY SWATHI Ferrous Sulfate 325 mg 03/11/23 08:00 Ferrous Sulfate 325 Mg Tablet PO DAILYCM [facility] Fluticasone Propionate 2 spray 03/11/23 10:00 Fluticasone 0.05% 1 [place] Nasal.Sry NASAL DAILY SWATHI Piperacillin Sod/Tazobactam 50 mls @ 12.5 mls/hr 03/10/23 17:30 03/11/23 06:00 Sod 3.375 gm/ Sodium Chloride IV 03/17/23 17:31 12.5 mls/hr Q8 SWATHI Administration Levothyroxine Sodium 75 mcg 03/11/23 10:00 Levothyroxine 75 Mcg Tablet PO DAILY SWATHI Montelukast Sodium 10 mg 03/10/23 21:00 03/10/23 20:41 Montelukast 10 Mg Tablet PO 10 mg QPM SWATHI Administration Multi-Ingredient Cream 1 applic 03/10/23 22:00 03/10/23 20:41 Petrolatum 33% Tube TOPICAL 1 applic 1000,2200 [facility] Administration Protocol Multivitamins 1 tablet 03/11/23 08:00 Multivitamins,Therapeutic Tablet PO DAILYCM [facility] Nitroglycerin 0.4 mg 03/10/23 14:11 Nitroglycerin (Inpatient Use) 0.4 Mg Tab.Subl SL Q5M PRN CHEST PAIN Nutritional Formula (Lactose Free) 120 ml 03/10/23 17:45 03/10/23 19:00 Ensure Plus High Protein 120 Ml Liquid PO Not Given TIDCM [facility] Nystatin/Triamcinolone Acetonide 1 applic 03/10/23 13:46 Nystatin/Triamcin Cream Tube TOPICAL BID PRN rash Protocol Oxycodone HCl 5 mg 03/10/23 19:45 03/11/23 03:41 Oxycodone 5 Mg Tablet PO 5 mg Q4H PRN PRN Administration Pain Score 6-10 Polyethylene Glycol 17 gm 03/11/23 10:00 Polyethylene Glycol 3350 17 Gm Packet PO DAILY SWATHI Rivaroxaban 10 mg 03/11/23 10:00 Rivaroxaban 10 Mg Tablet PO 03/24/23 10:01 DAILY SWATHI Fluticasone/Salmeterol 2 puff 03/10/23 22:00 03/10/23 20:42 Fluticasone/Salmeterol 232-14 Inhaler INHALATION 2 puff BID SWATHI Administration Senna/Docusate Sodium 2 tablet 03/10/23 22:00 03/10/23 20:42 Senna/Docusate Sodium 1 Tablet PO 2 tablet BID SWATHI Administration Sertraline HCl 100 mg 03/11/23 10:00 Sertraline 100 Mg Tablet PO DAILY SWATHI Simethicone 80 mg 03/10/23 18:00 03/10/23 20:43 Simethicone 80 Mg Chewable Tablet PO 80 mg PCHS SWATHI Administration Sodium Chloride 10 - 40 ml 03/10/23 14:18 0.9% Saline Lock 10 Ml Syringe IV UD PRN SALINE FLUSH Sodium Chloride 250 ml 03/10/23 17:49 03/10/23 18:40 0.9% Normal Saline 250 Ml Iv.Soln. IV 250 ml PRN PRN Administration KVO Tuberculin PPD 0.1 ml 03/18/23 10:00 Tuberculin,Purif.Prot.Deriv. 50 Tu/Ml Vial ID 03/18/23 10:01 X1 ONE Tuberculin PPD 0.1 ml 03/11/23 10:00 Tuberculin,Purif.Prot.Deriv. 50 Tu/Ml Vial ID 03/11/23 10:01 X1 ONE Umeclidinium Pray 1 puff 03/11/23 10:00 Umeclidinium Pray Inhaler INHALATION DAILY SWATHI Problem List (Updated 03/10/23 @ 19:[address] Bon Alvarez MD) COPD (chronic obstructive pulmonary disease) (Chronic) Constipation (Acute) Status post hip hemiarthroplasty (Acute) Failed fixation of fracture (Acute) Closed hip fracture (Acute) Severe aortic stenosis (Acute) Iron deficiency anemia (Acute) Allergic rhinitis (Acute) Hypertension (Chronic) Depression (Acute) Debility (Acute) Asthma (Chronic) GERD (gastroesophageal reflux disease) (Chronic) Vital Signs Temp Pulse Resp BP Pulse Ox O2 Del Method 97.9 F 82 16 118/69 97 Room Air 03/10/23 13:31 03/10/23 13:31 03/10/23 13:31 03/10/23 13:31 03/10/23 13:31 03/10/23 13:31 Oxygen Delivery Method Room Air Weight: 77.292 kg Body Mass Index (BMI) 28.3 Sodium 132 mmol/L (136-145) L 03/11/23 05:23 Potassium 3.6 mmol/L (3.5-5.1) 03/11/23 05:23 Chloride 98 mmol/L (98-107) 03/11/23 05:23 Carbon Dioxide 27.0 mmol/L (21.0-32.0) 03/11/23 05:23 Anion Gap 7 (5-15) 03/11/23 05:23 BUN 41 mg/dL (7-18) H 03/11/23 05:23 Creatinine 1.45 mg/dL (0.70-1.30) H 03/11/23 05:23 Est GFR (MDRD) Af Amer 60 mL/min (>60) 03/11/23 05:23 Est GFR (MDRD) Non-Af 49 mL/min (>60) L 03/11/23 05:23 BUN/Creatinine Ratio 28.3 RATIO (10-20) H 03/11/23 05:23 Glucose 120 mg/dL (74-106) H 03/11/23 05:23 Assessment/Plan: 1. Pain: acetaminophen 1000 mg PO Q6H PRN pain (1-5), oxycodone 5 mg PO Q4H PRN pain (6-10). The patient has used 2 doses of PRN oxycodone so far this admission. Please continue to monitor pain levels, for PRN medication usage, LFTs (AST/ALT = 46/50 U/L on 03/04/23), for constipation, drowsiness/dizziness, for syncope/falls/ataxia, and fro respiratory depression. The patient's pain appears to be well controlled with PRN oxycodone. 2. Bowel: polyethylene glycol 17 grams PO daily, senna/docusate 2 tablets PO BID. The patient's last bowel movement was on 03/09/23. Please continue to monitor for diarrhea, constipation and PRN medication usage. 3. DVT prophylaxis: rivaroxaban 10 mg PO daily through 03/24/23 followed by aspirin 81 mg PO BID through 04/07/23. Please continue to monitor for s/s of a DVT such as erythema/swelling/pain in the lower extremity as well as for s/s of bleeding/excessive bruising, hemoglobin levels (Hgb = 9.1 g/dL on 03/11/23), platelet counts (PLT = 216 K/mm3 on 03/11/23), and for GI distress with aspirin administration. If GI distress occurs with aspirin administration please consider administering with food. 4. Diverticulitis/colitis: piperacillin/tazobactam 3.375 grams Q8H through 02/18 . Please continue to monitor for resolution of diverticulitis/colitis, for abdominal pain, for fevers (recent temps = 97.8-99 F), for chills, white blood cell count (WBC = 4.8 K/mm3 on 03/11/23), for diarrhea, and renal function (serum creatinine = 1.45 mg/dL with creatinine clearance ~ 33 mL/min on 03/10/23). 5. COPD/Asthma: albuterol inhaler 2 puffs Q4H PRN shortness of breath, fluticasone/salmeterol 2 puffs inhalation BID, umeclidinium 1 puff daily, albuterol nebulization 2.5 mg Q6H PRN shortness of breath, montelukast 10 mg PO daily.. The patient has not required any PRN breathing treatment so far this admission. Please continue to monitor for s/s of a COPD exacerbation such as increase shortness of breath, cough, and increase sputum production, for PRN medication usage, respiratory rate (recent range = 16-20 breaths/min), O2 saturation (recent range = 94-98%), for heart palpitations, heart rate (recent range = 79-97 beats/min), for oral thrush, for s/s of pneumonia, for neur opsychiatric disturbances, insomnia, for anticholinergic side effects such as dry mouth, dry eyes, urinary retention, constipation, and delirium. To help avoid oral thrush, please consider rinsing out the patient's mouth after each administration of fluticasone/salmeterol. 6. Hypertension: chlorthalidone 25 mg PO daily. Please continue to monitor blood pressures (recent range = 105-119/60-69 mmHg), renal function (serum creatinine = 1.45 mg/dL with creatinine clearance ~ 33 mL/min on 03/10/23), potassium levels (K = 3.6 mmol/L on 03/11/23), sodium levels (Na = 132 mmol/L on 03/11/23), and for s/s of gout flares. The patient's blood pressures appear controlled on chlorthalidone. 7. GERD: famotidine 40 mg PO daily. Please continue to monitor for s/s of GERD, renal function (serum creatinine = 1.45 mg/dL with creatinine clearance ~ 33 mL/min on 03/10/23), platelet count (PLT = 216 K/mm3 on 03/11/23), and for delirium. 8. Hypothyroidism: levothyroxine 75 mcg PO daily. Please continue to monitor for s/s of hypo/hyperthyroidism, and thyroid levels (TSH = 7=.81 uIU/mL with T4 = 1.33 ng/dL on 02/11/23). 9. Iron deficiency anemia: ferrous sulfate 325 mg PO daily. Please continue to monitor for s/s of anemia, hemoglobin levels (Hgb = 9.1 g/dL on 03/11/23), iron levels (iron = 83 ug/dL on 12/24/22), for constipation and discolored stool. 10. Allergic rhinitis: fluticasone 0.05% nasal spray 2 sprays in each nostril daily. Please continue to monitor for allergy symptoms, headache, and nose bleeds. 11. Coronary artery disease: nitroglycerin 0.4 mg SL Q5M prn chest pain. The patient has not required any PRN doses of nitroglycerin this admission. Please continue to monitor for chest pain, and PRN medication usage. 12. Gas: simethicone 80 mg PO PCHS. Please continue to monitor for abdominal bloating/discomfort. 13. Anaphylaxis: epinephrine pen 0.3 mg IM PRN anaphylaxis. The patient has not required the use of an epinephrine injection yet this admission. Please continue to monitor for s/s of an allergic reaction such as rash, hives, shortness of breath, heart palpitations and throat/tongue swelling. 14. Nutrition: ensure plus high protein 120 mL PO 4x per day, multivitamin PO daily. Please continue to monitor overall nutritional status. 15. Skin irritation/tinea corporis: calmoseptine 1 application topically BID, petrolatum 33% 1 application topically BID, nystatin/triamcinolone 1 application topically BID PRN rash. Please continue to monitor for resolution of tinea corporis, and for skin irritation and integrity. Assessment/Plan for indications treated with psychotropic medications: 1. Depression: sertraline 100 mg PO daily. Please see provider note regarding stable chronic use GDR not recommended. Please continue to monitor for s/s of depression, for SI, sodium levels (Na = 132 mmol/L on 03/11/23), for diarrhea, dizziness, and for s/s of serotonin syndrome. Medical chart and medication regimen reviewed. The following medication irregularities or issues were identified: N/A Date Date of Note:: 03/11/23 Documented by User: Dr. Bon Alvarez MD 03/11/23 10:15 TCU RX Drug Regimen Review Provider Comments Provider responsibility Provider Comments to Recommendations by Pharmacy: Agree
[2023-03-11] MEDS: Fluticasone/Salmeterol 232-14 Inhaler 2 PUFF INHALATION ×2 (08:21→23:32)
[2023-03-11] MEDS: Famotidine 20 MG Tablet 40 MG PO (08:22)
[2023-03-11] MEDS: Sertraline 100 MG Tablet PO (08:22)
[2023-03-11] MEDS: Senna/Docusate Sodium 1 Tablet 2 TABLET PO ×2 (08:22→23:34)
[2023-03-11] MEDS: Multivitamins,Therapeutic Tablet 1 TABLET PO (08:22)
[2023-03-11] MEDS: Ferrous Sulfate 325 MG Tablet PO (08:22)
[2023-03-11] MEDS: Rivaroxaban 10 MG Tablet PO (08:22)
[2023-03-11] MEDS: Chlorthalidone 50 MG Tablet 25 MG PO (08:22)
[2023-03-11] MEDS: Levothyroxine 75 MCG Tablet PO (08:22)
[2023-03-11] MEDS: Ensure Plus High Protein 120 ML LIQUID PO (08:23)
[2023-03-11] MEDS: Polyethylene Glycol 3350 17 GM PACKET PO (08:23)
[2023-03-11] MEDS: Fluticasone 0.05% 1 SPRAY NASAL.SRY 2 SPRAY NASAL (08:25)
[2023-03-11] MEDS: Umeclidinium Bromide Inhaler 1 PUFF INHALATION (08:25)
[2023-03-11] MEDS: SimETHICONE 80 MG Chewable Tablet PO ×3 (08:26→23:33)
[2023-03-11] MEDS: Petrolatum 33% Tube 1 APPLIC TOPICAL ×2 (08:28→23:35)
[2023-03-11] MEDS: Menthol/Lanolin/Calamine/Znox 113 GM Tube 1 APPLIC TOPICAL ×2 (08:29→23:33)
--- NOTE | 2023-03-11 08:56 | NURSING ---
Addendum entered by Leela Stewart 03/11/23 10:38: Per CT, order needs to have abdomen & pelvis listed for appropriate imaging. Dr. Alvarez updated, order changed, auth received for new CPT code, auth #[id number]. Order faxed to CT. Original Note: Received approval for CT abdomen, auth #[id number]. Reference #[id number].
--- NOTE | 2023-03-11 09:49 | NURSING ---
Patient noticeable is not feeling well this AM. Patient is extremely weak and faint w/ appearance- increased pain. Patient to have CT Abdomen/Pelvis this AM w/ Contrast. Spoke w/ MD. Order given for IV Reglan 10 mg Q6H. Scheduled for nausea/concern for Oral Contrast Toleration.
[2023-03-11 10:00] VITALS: PULSE 74; RESP 14; O2SAT 94
--- NOTE | 2023-03-11 10:50 | NURSING ---
CT Called. Noted they are tubing oral contrast for patient. Patient to be scanned approximately around 2PM today.
[2023-03-11 11:00] VITALS: BMI 28.3
[2023-03-11] MEDS: Tuberculin,Purif.prot.deriv. 50 TU/ML Vial 0.1 ML ID (11:05)
[2023-03-11] MEDS: 0.9% Saline Lock 10 ML Syringe IV ×2 (11:09→17:59)
[2023-03-11] MEDS: Metoclopramide 10 MG/2 ML Vial IV ×3 (11:09→23:47)
[2023-03-11 15:04] VITALS: BP 115/71; PULSE 86; RESP 16; TEMP 36.3; O2SAT 94
--- NOTE | 2023-03-11 16:23 | CASEMGMT ---
Social Work Readmit. No changes to assessment. DC plan remains [place]. WVM made aware pt returned to TCU. Zoraida Michael, SAMPLE PATTERNMAKER RESIDENT CARE ASSOCIATE
[2023-03-11] MEDS: 0.9% Normal Saline (1000mL) 1,000 ML 100 ML IV (17:29)
[2023-03-11 18:35] LABS: Phosphorus 3.5 mg/dL (2.5-4.9)
--- NOTE | 2023-03-11 19:39 | NURSING ---
Returned call to patient's spouse with update on todays test results and new orders. She verbalized understanding. Emotional support given. Will continue to monitor.
[2023-03-11] MEDS: Acetaminophen 500 MG Tablet 1000 MG PO (23:32)
[2023-03-11] MEDS: Montelukast 10 MG Tablet PO (23:34)
[2023-03-12] MEDS: 0.9% Normal Saline (1000mL) 1,000 ML 100 ML IV ×2 (02:01→12:16)
[2023-03-12 05:53] LABS: Absolute Lymphocyte Count 0.59 X10^3/uL (0.83-4.51); Absolute Neutrophil Count 2.9 X10^3/uL (2.0-7.7); Eosinophil# 0.05 X10^3/uL; Eosinophils% 1.2 % (0-5); Hematocrit 27.1 % (40-54); Hemoglobin 8.4 g/dL (13.0-16.5); Lymphocyte # 0.59 X10^3/ul (0.83-4.51); Lymphocyte % 14.4 % (19-41); Mean Corpuscular Hgb 27.6 pg (27.0-32.0); Mean Corpuscular Volume 89.1 fL (80-94); Mean Platelet Vol. 8.9 fl (6.2-12.0); Monocyte# 0.45 X10^3/uL; NRBC Flagged by Analyzer 0 % (0-5); Neutrophil # 2.91 X10^3/uL (2.7-7.7); Neutrophil % 71.2 % (47-70); POSITIVE DIFFERENTIAL YES; Platelet Count 203 K/mm3 (150-450); RBC Distribution Width CV 14.9 % (11.6-14.6); RBC Distribution Width SD 48.5 fl (35.1-43.9); Red Blood Count 3.04 M/mm3 (4.6-6.2); White Blood Count 4.1 K/mm3 (4.4-11.0)
[2023-03-12 06:02] LABS: Differential Indicated SCAN CRITERIA MET
[2023-03-12 06:24] LABS: Anion Gap 6 (5-15); BUN 38 mg/dL (7-18); BUN/Creat Ratio 26.2 RATIO (10-20); Calcium,Total 8.1 mg/dL (8.5-10.1); Chloride 100 mmol/L (98-107); Creatinine, Serum 1.45 mg/dL (0.70-1.30); EST Glomerular Filtration Rate 49 mL/min (>60); Est Glom Filt Rate - Afr Amer 60 mL/min (>60); Estimated Creatinine Clearance 32.99 ml/min; Glucose 89 mg/dL (74-106); Potassium 3.3 mmol/L (3.5-5.1); Sodium Level 134 mmol/L (136-145)
[2023-03-12] MEDS: Metoclopramide 10 MG/2 ML Vial IV ×2 (06:34→12:48)
[2023-03-12 07:18] LABS: Differential Comment SCANNED; Hypochromasia 1+
[2023-03-12] MEDS: Menthol/Lanolin/Calamine/Znox 113 GM Tube 1 APPLIC TOPICAL (08:21)
[2023-03-12] MEDS: Fluticasone/Salmeterol 232-14 Inhaler 2 PUFF INHALATION (08:22)
[2023-03-12] MEDS: Umeclidinium Bromide Inhaler 1 PUFF INHALATION (08:24)
[2023-03-12] MEDS: Fluticasone 0.05% 1 SPRAY NASAL.SRY 2 SPRAY NASAL (08:24)
[2023-03-12] MEDS: Petrolatum 33% Tube 1 APPLIC TOPICAL (08:25)
[2023-03-12] MEDS: Polyethylene Glycol 3350 17 GM PACKET PO (08:26)
[2023-03-12] MEDS: Potassium Chloride Oral Tablet 20 MEQ 40 MEQ PO (08:28)
[2023-03-12] MEDS: Ferrous Sulfate 325 MG Tablet PO (08:28)
[2023-03-12] MEDS: Famotidine 20 MG Tablet 40 MG PO (08:28)
[2023-03-12] MEDS: SimETHICONE 80 MG Chewable Tablet PO ×2 (08:28→12:50)
[2023-03-12] MEDS: Rivaroxaban 10 MG Tablet PO (08:29)
[2023-03-12] MEDS: Levothyroxine 75 MCG Tablet PO (08:29)
[2023-03-12] MEDS: Senna/Docusate Sodium 1 Tablet 2 TABLET PO (08:29)
[2023-03-12] MEDS: Sertraline 100 MG Tablet PO (08:30)
--- NOTE | 2023-03-12 10:47 | NS ---
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 Provided written copy of first choice/daily menu specials. Res requesting set up assist w/ meals and help w/ menu selections. No food dislikes - has had issues w/ nausea so nothing sounds good now.
--- NOTE | 2023-03-12 11:29 | NURSING ---
Signal Operator Note; Activity Asset: Markell Callahan has returned to TCU for continuer therapy and remains independent in his choice of daily activities. His family will visit and he welcomes visit from the heel former and therapy dog. He will read the newspaper and daily when available. Due to his pain at this time he prefers to do independent activities in his room or rest when able to. Staff will continue to remind him of daily activities and respect his right to say no.
[2023-03-12] MEDS: Lactulose 20 GM/30 ML UDC 200 GM RC (12:01)
[2023-03-12] MEDS: 0.9% Saline Lock 10 ML Syringe IV (12:49)
[2023-03-12] MEDS: oxyCODONE 5 MG Tablet PO (13:01)
--- NOTE | 2023-03-12 13:14 | NURSING ---
Received Order from Dr. Alvarez for Lactulose Enema. Administered Lactulose Enema with only liquid results. Pt Abdomen distended and pt unable to eat. Dr. Alvarez updated and received order to Consult General Surgery. Dr. Macias paged and returned call quickly. Dr. Macias would like a NG tube placed and a KUB. Dr. Alvarez updated on order and received order to send pt to E... Report called to Tyra GALLEGOS and pt will go to room 20. Pt and updated.
--- NOTE | 2023-03-12 13:24 | CON.PCM.SX_ITS ---
Assessment & Plan Assessment/Plan (1) Abdominal pain: (2) Abdominal distension: PLAN: Plan Per Dr. Alvarez patient is being sent to the ER for further work-up as they do not usually do NGs in the TCU. Recommend NG place as CT from yesterday does show distended small bowel. On exam unable to appreciate any bulge in the right or left groin as CT said there was some nondistended bowel in the right groin?upon relook of the CT that may be fluid in the inguinal hernia not actual bowel pelvic is difficult to view due to the hardware and bilateral hips. Discussed with the ER physician recommend placing NG. Addendum: Patient still has a large amount of stool in the rectum per ER phy nildaian-- did go down and manually disimpact as he received sedation from the ER physician Dr. Cueva. The rectum seems to be fairly clean of stool at the end of disimpaction. Patient did have some bleeding. NG was also placed at the end. Plan to admit to medicine. Cristina Macias M.D. Pager: [phone] [facility] [address] [place] [address], [facility], [address] [place] [address] Office: [phone] HPI Consult Data Date of Consult: 03/12/23 HPI Narrative Reason for Consultation: Distended abdomen HPI Narrative: CARISSA VANG, is a 82 M who admitted to the TCU had a right hip done by Dr. Tristan on 03/05/2023. Patient was sent over to the [facility] hospital from TCU previously and just came back on Friday. Since coming back patient has received enemas with diarrhea but still has a distended abdomen and does not really feel like eating. Patient CT abdomen pelvis done yesterday which called distended small bowel and colon mass some nondistended bowel in the right inguinal region. While in TCU patient has not been really eating. And getting enemas and suppositories with results liquid stools but no change in distention of his abdomen. [facility] Medical History Allergic rhinitis Anemia of chronic renal failure, stage 3 (moderate) Arthritis Atrial fibrillation and flutter Bruising Cellulitis and abscess of right leg Cellulitis of left leg Cellulitis of right lower extremity Chronic asthma Chronic 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 Closed hip fracture Coronary heart disease Degenerative joint disease of knee, right Diverticulosis Diverticulosis Essential (primary) hypertension Failed fixation of fracture Gout Hay fever History of deep vein thrombosis of lower extremity HLD (hyperlipidemia) Hypothyroidism Iron deficiency anemia due to chronic blood loss Left ventricular diastolic dysfunction Leg wound, left Macular degeneration Non-pressure chronic ulcer of left calf with fat layer exposed Nonrheumatic aortic (valve) stenosis Osteoarthritis Pleural plaque Presence of cardiac pacemaker Pulmonary nodule Right knee DJD Secondary pulmonary arterial hypertension Skin cancer Traumatic open wound of right lower leg with infection Venous ulcer with fat layer exposed Home Medications acetaminophen 500 mg tablet 1,000 mg PO BID PRN PAIN 12/04/18 [History Last Taken 12/03/18] epinephrine 0.3 mg/0.3 mL injection, auto-injector 0.3 mg IJ PRN PRN ANAPHYLAXIS 12/04/18 [History Last Taken Unknown] multivitamin 1 tab PO QAM VITAMIN 04/19/19 [History Last Taken 03/12/23] sertraline 100 mg tablet 100 mg PO DAILY DEPRESSION #90 tabs 06/10/22 [Rx Last Taken 03/12/23] fluticasone propionate 50 mcg/actuation nasal spray,suspension 2 spray intranasal DAILY ALLERGIES #16 grams 06/27/22 [Rx Last Taken 03/12/23] chlorthalidone 25 mg tablet 25 mg PO DAILY BLOOD PRESSURE #90 tabs 07/08/22 [Rx Last Taken 03/12/23] nystatin-triamcinolone 100,000 unit/g-0.1 % topical cream 1 applic topical BID PRN RASH #30 grams 07/25/22 [Rx Last Taken Unknown] levothyroxine 75 mcg tablet 75 mcg PO DAILY THYROID #90 tabs 08/12/22 [Rx Last Taken 03/12/23] fluticasone propionate 230 mcg-salmeterol 21 mcg/actuation HFA inhaler 2 puff inhalation BID ASTHMA #1 device 08/23/22 [Rx Last Taken 03/12/23] montelukast 10 mg tablet 10 mg PO QPM ALLERGIES #30 tabs 09/27/22 [Rx Last Taken 03/11/23] ferrous sulfate 325 mg (65 mg iron) tablet (FeroSul) 325 mg PO DAILY SUPPLEMENT 11/29/22 [History Last Taken 03/12/23] nitroglycerin 0.4 mg sublingual tablet 0.4 mg sublingual Q5-15M PRN CHEST PAIN #25 tabs 12/02/22 [Rx Last Taken Unknown] famotidine 40 mg tablet 40 mg PO DAILY ACID REFLUX #90 tabs 01/02/23 [Rx Last Taken 03/12/23] albuterol sulfate 2.5 mg/3 mL (0.083 %) solution for nebulization 2.5 mg inhalation Q6H PRN SHORTNESS OF BREATH/WHEEZING 01/30/23 [History Last Taken 02/06/23] aspirin 81 mg tablet,delayed release 81 mg PO BID HEART HEALTH 2 weeks #28 tabs 03/08/23 [Rx Last Taken 03/12/23] polyethylene glycol 3350 17 gram oral powder packet 17 g PO DAILY CONSTIPATION 30 days #30 ea 03/08/23 [Rx Last Taken 03/12/23] rivaroxaban 10 mg tablet (Xarelto) 10 mg PO DAILY BLOOD THINNER 2 weeks #14 tabs 03/08/23 [Rx Last Taken 03/12/23] sennosides 8.6 mg-docusate sodium 50 mg tablet (Stool Softener-Stimulant Laxativ e) 1 tab PO BID CONSTIPATION 30 days #60 tabs 03/08/23 [Rx Last Taken 03/12/23] albuterol sulfate 90 mcg/actuation aerosol inhaler 2 puff inhalation Q4H PRN SHORTNESS OF BREATH/WHEEZING 03/12/23 [History Last Taken Unknown] hydrocodone-acetaminophen 5-325mg 5mg-325mg 1 tab PO Q6H PRN Pain Score 6-10 03/12/23 [History Last Taken Unknown] tiotropium bromide 2.5 mcg/actuation mist for inhalation (Spiriva Respimat) 2 puff inhalation DAILY ASTHMA 03/12/23 [History Last Taken 03/12/23] Allergy/AdvReac Type Severity Reaction Status Date / Time indomethacin [From Indocin] AdvReac Intermediate Itching Verified 03/04/23 20:42 indomethacin sodium AdvReac Intermediate Itching Verified 03/04/23 20:42 [From Indocin] oxycodone HCl [From Percocet] AdvReac Intermediate Itching Verified 03/04/23 20:42 Family History Father Heart disease Colon cancer Sister Diabetes Mother Breast cancer Surgical History H/O hernia repair H/O prostatectomy H/O shoulder surgery H/O total knee replacement History of appendectomy History of appendectomy History of carpal tunnel surgery History of hernia repair History of left heart catheterization (02/25/22) History of prostatectomy History of total knee replacement History of total left hip replacement History of total left hip replacement Social History (Updated 03/12/23 @ 16:[address] Esme Paz DO) housing: correction Smoking Status: Never smoker second hand exposure: Yes alcohol intake: current alcohol intake frequency: holidays/special occasions only Alcohol type: beer substance use type: does not use caffeine: Yes Type: coffee Number of servings: 2 what type of physical activity do you participate in: walking frequency: daily giancarlo/mormonism: Roman Catholic seatbelt use: always do you feel safe at home: Yes ROS Constitutional Constitutional: Reports anorexia Eyes Eyes: Denies loss of central vision ENT HEENT: Denies dysphagia Cardiovascular Cardiovascular: Denies chest pain Respiratory/Chest Respiratory/Chest: Denies cough Gastrointestinal Gastrointestinal: Reports abdominal pain, bloating, constipation, diarrhea and nausea Genitourinary Genitourinary: Denies dysuria Musculoskeletal Musculoskeletal: Reports joint pain Integumentary Integumentary: Denies jaundice Neurologic Neurologic: Denies dizziness Psychiatric Psychiatric: Denies anxiety Hematologic/Lymphatic Hematologic/Lymphatic: Reports easy bruising Physical Exam Const alert, oriented x3 and no apparent distress HEENT normocephalic and head/scalp atraumatic Resp normal respiratory effort Cardio regular rate GI soft to palpation Inspection: abdominal distention Palpation: tender other (Minimal diffuse no peritoneal signs) and hernia other (No right or left inguinal hernia appreciated on exam); Negative for guarding Extremity no clubbing, cyanosis or edema Skin no rashes or lesions noted Neuro CN's II-XII intact bilaterally Psych mental status grossly normal Medical Records Data Medical Nutrition Assessment Dietitian: Malnutrition Criteria Met Start: 03/11/23 13:52 Freq: Status: Active Protocol: Document 03/11/23 13:52 AG (Rec: 03/11/23 13:52 AG [id number]) Nutrition Malnutrition Evidence of Malnutrition Exists Yes Malnutrition (moderate): Chronic Evidenced By Suboptimal Energy Intake ( Moderate),Weight Loss ( Moderate) Clinical Problem Chronic Disease or Condition Related Malnutrition Etiology moderate, chronic malnutrition related to inadequate energy intake Signs/Symptoms as evidenced by unintentional 5% wt loss x ~1 month (noted 10% wt loss x 2 months recently), estimated PO intake meeting <75% of estimated energy needs Status Active Problem Recommendation Dietitian Recommendations/Changes continue regular diet as tolerated; ensure compact TID for additional nutrition if consumed. Will monitor PO intake and adjust diet/ONS as appropriate. Lab / Micro Data 03/12/23 05:47 03/12/23 05:47 Labs: Laboratory Results - last 24 hr 03/11/23 05:23: Phosphorus 3.5, Magnesium 2.0 03/12/23 05:47: WBC 4.1 L, RBC 3.04 L, Hgb 8.4 L, Hct 27.1 L, MCV 89.1, MCH 27.6, MCHC 31.0 L, RDW Std Deviation 48.5 H, RDW Coeff of John 14.9 H, Plt Count 203, MPV 8.9, Immature Gran % (Auto) 2.200 H, Neut % (Auto) 71.2 H, Lymph % (Auto) 14.4 L, [place] % (Auto) 11.0 H, Eos % (Auto) 1.2, Baso % (Auto) 0.0, Absolute Neuts (auto) 2.9, Absolute Lymphs (auto) 0.59 L, Nucleated RBC % 0, Differential Comment SCANNED, Diff Path Review May foll, Hypochromasia 1+, Sodium 134 L, Potassium 3.3 L, Chloride 100, Carbon Dioxide 28.0, Anion Gap 6, BUN 38 H, Creatinine 1.45 H, Estim Creat Clear Calc 32.99, Est GFR (MDRD) Af Amer 60, Est GFR (MDRD) Non-Af 49 L, BUN/Creatinine Ratio 26.2 H, Glucose 89, Calcium 8.1 L
--- NOTE | 2023-03-12 19:44 | DS.PCM_ITS ---
Providers Date of Admission: 03/10/23 Primary Care Physician: Dr. Angelique Grossman MD Reason For Visit: FAILED FIXATION,DISLOCATION OF HIP AFTER SURGERY Diagnosis Discharge Diagnosis (1) Abdominal pain: Status: Acute Code(s): R10.9 - Unspecified abdominal pain (2) Abdominal distension: Status: Acute Code(s): R14.0 - Abdominal distension (gaseous) Plan 82 year old male with below past medical history hospitalized for failed right hip fracture fixation, underwent right hip hemiarthroplasty 03/05/[address] Tristan, complicated by abdominal pain, fever, constipation, admitted to TCU with debility, here for rehabilitation, strengthening, prior to discharge home with . * Debility - PT/OT. * Pain - Tylenol 1000mg q6 prn pain (1-5), Oxycodone 5mg q4h prn pain (6-10). * Bowel - Miralax 17gm daily, Senna/colace 2 tablets bid, Magnesium citrate 300ml po x 1 dose, Soap Suds enema. * Adult immunization - Administer pneumonia vaccine, covid19 vaccine, flu vaccine as appropriate. * DVT prophylaxis - Xarelto 10mg daily thru 03/24/2023, then Aspirin 81mg bid thru 04/07/2023. * COPD - Advair 2 puffs bid, Incruse 1 puff daily, Albuterol 2.5mg q6h prn, Albuterol mdi 2 puffs q4h prn. * Hypertension - Chlorthalidone 25mg daily. * Nutrition - Ensure Plus 120ml tidcd, MVI daily. * Anaphylaxis - Epipen 0.3mg im prn. * GERD - Famotidine 40mg daily. * Iron deficiency anemia - Ferrous sulfate 325mg daily. * Allergic rhinitis - Flonase 2 sprays daily prn. * Asthma - Advair 2 puffs bid, Singulair 10mg daily, Albuterol 2.5mg q6h prn, Albuterol mdi 2 puffs q4h prn. * Hypothyroidism - Levothyroxine 75mcg daily. * Skin irritation - Calmoseptine topical bid, Petrolatum topical bid. * Coronary artery disease - NTG 0.4mg sl q5m prn. * Tinea Corporis- Lotrisone topical bid prn. * Diverticulitis/Colitis - CT Abdomen/pelvis, Zosyn 3.375gm iv q8 thru 2022. * Gas - Simethicone 80mg pchs. * Depression - Sertraline 100mg daily, stable chronic penitentiary use, GDR not recommended. Medications at Discharge Home Medications acetaminophen 500 mg tablet 1,000 mg PO BID PRN PAIN 12/04/18 epinephrine 0.3 mg/0.3 mL injection, auto-injector 0.3 mg IJ PRN PRN ANAPHYLAXIS 12/04/18 multivitamin 1 tab PO QAM VITAMIN 04/19/19 sertraline 100 mg tablet 100 mg PO DAILY DEPRESSION #90 tabs 06/10/22 fluticasone propionate 50 mcg/actuation nasal spray,suspension 2 spray intranasal DAILY ALLERGIES #16 grams 06/27/22 chlorthalidone 25 mg tablet 25 mg PO DAILY BLOOD PRESSURE #90 tabs 07/08/22 nystatin-triamcinolone 100,000 unit/g-0.1 % topical cream 1 applic topical BID PRN RASH #30 grams 07/25/22 levothyroxine 75 mcg tablet 75 mcg PO DAILY THYROID #90 tabs 08/12/22 fluticasone propionate 230 mcg-salmeterol 21 mcg/actuation HFA inhaler 2 puff inhalation BID ASTHMA #1 device 08/23/22 montelukast 10 mg tablet 10 mg PO QPM ALLERGIES #30 tabs 09/27/22 ferrous sulfate 325 mg (65 mg iron) tablet (FeroSul) 325 mg PO DAILY SUPPLEMENT 11/29/22 nitroglycerin 0.4 mg sublingual tablet 0.4 mg sublingual Q5-15M PRN CHEST PAIN #25 tabs 12/02/22 famotidine 40 mg tablet 40 mg PO DAILY ACID REFLUX #90 tabs 01/02/23 albuterol sulfate 2.5 mg/3 mL (0.083 %) solution for nebulization 2.5 mg inh alation Q6H PRN SHORTNESS OF BREATH/WHEEZING 01/30/23 aspirin 81 mg tablet,delayed release 81 mg PO BID HEART HEALTH 2 weeks #28 tabs 03/08/23 polyethylene glycol 3350 17 gram oral powder packet 17 g PO DAILY CONSTIPATION 30 days #30 ea 03/08/23 rivaroxaban 10 mg tablet (Xarelto) 10 mg PO DAILY BLOOD THINNER 2 weeks #14 tabs 03/08/23 sennosides 8.6 mg-docusate sodium 50 mg tablet (Stool Softener-Stimulant Laxative) 1 tab PO BID CONSTIPATION 30 days #60 tabs 03/08/23 albuterol sulfate 90 mcg/actuation aerosol inhaler 2 puff inhalation Q4H PRN SHORTNESS OF BREATH/WHEEZING 03/12/23 hydrocodone-acetaminophen 5-325mg 5mg-325mg 1 tab PO Q6H PRN Pain Score 6-10 03/12/23 tiotropium bromide 2.5 mcg/actuation mist for inhalation (Spiriva Respimat) 2 puff inhalation DAILY ASTHMA 03/12/23 Hospital Course Operations - (Right hip hemiarthroplasty.) Procedures None Summary of Care Provided Minutes Spent on Discharge: 35 Hospital Course: 82 year old male with below past medical history hospitalized for failed right hip fracture fixation, underwent right hip hemiarthroplasty 03/05/[address] Tristan, complicated by abdominal pain, fever, constipation, admitted to TCU with debility, here for rehabilitation, strengthening, prior to discharge home with . 03/10/2023 Resident admitted to TCU, nausea, abdominal pain, abdominal distention. CT abdomen/pelvis ordered, resident started on Zosyn IV, bowel regimen for presumptive colitis/diverticulitis 03/11/2023 CT abdomen/pelvis showed ileus, Zosyn stopped, started Normal Saline 100ml/hour IV, Reglan 10mg IV Q6, aggressive bowel regimen including Magnesium citrate, soap suds enema, Lactulose enema. Resident showed no improvement, feels miserable, General Surgery consulted, recommend NG tube insertion, TCU lacks nursing staff to manage NG tubes. Discharge to [facility] Emergency Department for evaluation, admission to [facility]. Physical Exam Const alert General Appearance: cooperative HEENT normocephalic Eyes PERRL and EOMs intact bilaterally Neck supple, no JVD and no carotid bruits Resp normal respiratory effort, normal air movement and clear to auscultation b ilaterally Cardio regular rate and regular rhythm GI GI Narrative: Distended. Auscultation: hypoactive bowel sounds Palpation: tender epigastric and LLQ Extremity normal capillary refill General Extremity: Negative for edema Skin no rashes or lesions noted General Skin Exam: no breakdown Psych affect normal Appearance: appropriate Weight / BMI Weight Weight: 77.292 kg Body Mass Index (BMI) 28.3 ABG / Lab / Microbiology Data 03/12/23 05:47 03/12/23 05:47 Laboratory: Laboratory Results - last 24 hr 03/12/23 05:47: WBC 4.1 L, RBC 3.04 L, Hgb 8.4 L, Hct 27.1 L, MCV 89.1, MCH 27.6, MCHC 31.0 L, RDW Std Deviation 48.5 H, RDW Coeff of John 14.9 H, Plt Count 203, MPV 8.9, Immature Gran % (Auto) 2.200 H, Neut % (Auto) 71.2 H, Lymph % (Auto) 14.4 L, Blanco % (Auto) 11.0 H, Eos % (Auto) 1.2, Baso % (Auto) 0.0, Absolute Neuts (auto) 2.9, Absolute Lymphs (auto) 0.59 L, Nucleated RBC % 0, Differential Comment SCANNED, Diff Path Review May foll, Hypochromasia 1+, Sodium 134 L, Potassium 3.3 L, Chloride 100, Carbon Dioxide 28.0, Anion Gap 6, BUN 38 H, Creatinine 1.45 H, Estim Creat Clear Calc 32.99, Est GFR (MDRD) Af Amer 60, Est GFR (MDRD) Non-Af 49 L, BUN/Creatinine Ratio 26.2 H, Glucose 89, Calcium 8.1 L D/C Instructions Discharge Diet: No restrictions Discharge Activity: Return to Normal Activity, May Shower and Use Walker Weight Bearing Status: Weight bearing as tolerated Call your doctor if you observe: Fever of 101 or Higher, Inability to urinate, Inability to have a bowel movement, Shortness of breath, Dizziness, Fainting spells, Swelling in the ankles, Chest pain and Uncontrolled pain Additional Instructions: Discharge to [facility] Emergency Department for evaluation, admission to [facility]. Please Follow Up With: Stanley Tristan MD Meaningful Use Info Meaningful Use Diagnoses (Choose all that apply): None applicable Discharge Plan Admission Admit Date/Time: 03/10/23 13:27 Primary Reason for Your Visit: Debility. Attending Provider: Bon Alvarez Chi Primary Care Provider: Angelique Grossman Instructions Additional Instructions / Restrictions: Discharge to [facility] Emergency Department for evaluation, admission to [facility]. Discharge Orders/Prescriptions Prescriptions: No Action multivitamin Tablet 1 tab PO QAM montelukast 10 mg tablet 10 mg PO QPM Qty: 30 3RF ferrous sulfate [FeroSul] 325 mg (65 mg iron) tablet 325 mg PO DAILY epinephrine 0.3 MG/0.3 ML auto-injector 0.3 mg IJ PRN PRN (Reason: ANAPHYLAXIS ) acetaminophen 500 MG tablet 1,000 mg PO BID PRN (Reason: PAIN ) albuterol sulfate 2.5 mg /3 mL (0.083 %) solution for nebulization 2.5 mg INHALATION Q6H PRN (Reason: SHORTNESS OF BREATH/WHEEZING ) polyethylene glycol 3350 17 gram Powder In Packet 17 g PO DAILY 30 Days Qty: 30 0RF sennosides-docusate sodium [Stool Softener-Stimulant Laxat] 8.6-50 mg Tablet 1 tab PO BID 30 Days Qty: 60 0RF Xarelto 10 mg tablet 10 mg PO DAILY 14 Days Qty: 14 0RF aspirin 81 mg tablet,delayed release (DR/EC) 81 mg PO BID 14 Days Qty: 28 0RF albuterol sulfate 90 mcg/actuation HFA aerosol inhaler 2 puff INHALATION Q4H PRN (Reason: SHORTNESS OF BREATH/WHEEZING) hydrocodone-acetaminophen 5-325 mg Tablet 1 tab PO Q6H PRN (Reason: Pain Score 6-10) Spiriva Respimat 2.5 mcg/actuation mist 2 puff INHALATION DAILY sertraline 100 mg tablet 100 mg PO DAILY Qty: 90 1RF fluticasone propionate 50 mcg/actuation spray,suspension 2 spray intranasal DAILY Qty: 16 3RF chlorthalidone 25 mg tablet 25 mg PO DAILY Qty: 90 3RF nystatin-triamcinolone 100,000-0.1 unit/g-% cream 1 applic topical BID PRN (Reason: RASH ) Qty: 30 1RF levothyroxine 75 mcg tablet 75 mcg PO DAILY Qty: 90 3RF fluticasone propion-salmeterol 230-21 mcg/actuation HFA aerosol inhaler 2 puff INHALATION BID Qty: 1 11RF nitroglycerin 0.4 mg tablet, sublingual 0.4 mg sublingual Q5-15M PRN (Reason: CHEST PAIN) Qty: 25 3RF famotidine 40 mg tablet 40 mg PO DAILY Qty: 90 3RF Referrals / Follow Up: Angelique Grossman MD [Primary Care Provider] - Disposition Disposition (needs filled in before D/C Order can be placed): Acute Care Hospital [facility]
[2023-03-13 09:28] LABS: Pathologist Review Reviewed
--- NOTE | 2023-03-20 13:58 | MDS.RN ---
Information for the mds was obtained from review of the clinical record, interview of resident, staff, and direct observation of resident's care.
== END 2023-03-12 17:51 | disposition short-term general hospital (02) | DRG 560 ==
PROVIDERS: Admitting Provider Family Medicine Geriatric Medicine; PCP Internal Medicine; Visit Provider Family Medicine Geriatric Medicine
DX: M96.661 Fracture of femur following insertion of orthopedic implant, joint prosthesis, or bone plate, right leg (principal); K57.92 Diverticulitis of intestine, part unspecified, without perforation or abscess without bleeding; K56.7 Ileus, unspecified; D63.1 Anemia in chronic kidney disease; B35.4 Tinea corporis; J44.9 Chronic obstructive pulmonary disease, unspecified; N18.30 Chronic kidney disease, stage 3 unspecified; D50.0 Iron deficiency anemia secondary to blood loss (chronic); I12.9 Hypertensive chronic kidney disease with stage 1 through stage 4 chronic kidney disease, or unspecified chronic kidney disease; E03.9 Hypothyroidism, unspecified; F32.A Depression, unspecified; K52.9 Noninfective gastroenteritis and colitis, unspecified; E78.5 Hyperlipidemia, unspecified; K21.9 Gastro-esophageal reflux disease without esophagitis; J30.9 Allergic rhinitis, unspecified; I25.10 Atherosclerotic heart disease of native coronary artery without angina pectoris; Z79.51 Long term (current) use of inhaled steroids; Z79.01 Long term (current) use of anticoagulants; Z79.82 Long term (current) use of aspirin; Z96.641 Presence of right artificial hip joint; Z79.899 Other long term (current) drug therapy; Z79.890 Hormone replacement therapy
CPT/HCPCS: 36415; 80048; 83735; 84100; 85025; 97110; 97116; 97162; 97166; 97530; 97535; 97802; J7030; J7050; A4216

== ENCOUNTER → 2023-03-11 | Outpatient (CLI) | payer MEDICARE, SELFPAY ==
--- NOTE | 2023-03-11 10:37 | CT_ITS ---
STUDY: CT ABDOMEN AND PELVIS WITH CONTRAST REASON FOR EXAM: Male, 82 years old. Unspecified abdominal pain. Recent hip surgery. History of diverticulitis. RADIATION DOSAGE (If Supplied By Facility): CTDIvol = ( 14.21 ) mGy, DLP = ( 1074.80 ) mGycm TECHNIQUE: Transaxial images were obtained from the dome of the diaphragm to the symphysis pubis with oral contrast. Oral and amp;amp; IV Gastrografin and amp;amp; 100mL Isovue-370 was administered. Sagittal and coronal images were reconstructed. Individualized dose optimization techniques were used for this CT. COMPARISON: None. FINDINGS: Bilateral calcified pleural plaques. Increased linear markings at the lung bases with areas of confluence and bronchiectasis suggestive of a scarring. Calcification of the mitral valve annulus. Coronary artery calcification. There is decreased attenuation of the liver consistent with steatosis. There is a 4.8 mm cyst in the anterior aspect of the right lobe of the liver. There are multiple small gallstones. There are multiple benign calcified granulomata of the spleen. There is diffuse atrophy of the pancreas. Normal bilateral adrenal glands. Normal right kidney. Normal left kidney. Normal visualized stomach. Multiple dilated fluid distended small bowel loops. Large amount of oral contrast and fecal material is seen in the rectum. Gaseous distention of the colon. There is non-visualization of the appendix. Normal abdominal aorta. Normal inferior vena cava. Normal retroperitoneum. Normal urinary bladder. Small right inguinal hernia containing nondilated small bowel loop. There are diffuse degenerative changes of the visualized lumbar spine. Bilateral total hip replacement causing beam hardening artifacts in the pelvis limiting the evaluation of the pelvic structures. CT/Abdomen/Pelvis WITH Contrast IMPRESSION: Fluid and gas distention of the small bowel loops down to the distal ileum with gaseous distention of the colon with oral contrast seen in the rectum. This may represent an ileus pattern. Follow-up recommended. Small right inguinal hernia containing a nondilated small bowel. Bilateral total hip replacement causing beam hardening artifact in the pelvis limiting the evaluation of the pelvic structures. Electronically Signed: Antonio Kahn MD at 15:29 EDT ,
== END | disposition home or self-care (01) ==
LOC: CT 10:34
PROVIDERS: PCP Internal Medicine; Referring Provider Family Medicine Geriatric Medicine; Visit Provider Family Medicine Geriatric Medicine
DX: R10.9 Unspecified abdominal pain (principal)
CPT/HCPCS: 74177; Q9967; A4216

== ENCOUNTER 2023-03-12 13:30 | Inpatient (IN) | payer MEDICARE, SELFPAY ==
[2023-03-12] VITALS (12 sets, daily range): BP systolic 101–148; BP diastolic 56–81; PULSE 79–99; RESP 12–20; TEMP 36.2–37; O2SAT 91–100; BMI 25.9; BMI 26.3
--- NOTE | 2023-03-12 14:25 | RAD_ITS ---
EXAM: XR ABDOMEN, 1 VIEW CLINICAL INDICATION: NG Insertion TECHNIQUE: Frontal supine view of the abdomen/pelvis. COMPARISON: No relevant prior studies available. FINDINGS: LOWER THORAX: No acute pathology. GASTROINTESTINAL TRACT: Unremarkable. Non-obstructive. No bowel or stomach distention. ORGANS: Unremarkable as visualized. No organomegaly. No abnormal calcifications. BONES/JOINTS: No acute pathology. SOFT TISSUES: No acute pathology. TUBES, LINES AND DEVICES: Nasogastric tube is in place with the distal tip in the proximal stomach. There are gas-filled loops of large and small bowel. RAD/Abdomen Single View (Portable) IMPRESSION: Nasogastric tube with the distal tip in the proximal stomach. Electronically Signed: Jose Virgen MD at 16:43 EDT ,
--- NOTE | 2023-03-12 14:47 | ED.VIS.GI ---
HPI HPI - GI History of Present Illness Chief Complaint: Abd Pain Narrative Narrative: 82-year-old male status post right hip surgery from the TCU with constipation. Patient is unsure when his last bowel normal movement was but he states that has had some diarrhea which is slowly oozing. He complains of abdominal pain and abdominal distention. Patient is on narcotics in the TCU. He states he had enemas and other medications for his constipation which are not providing any relief. He was sent over the ER for evaluation after general surgery reviewed the CT and recommended an NG tube. PFSH PFS Medical History Allergic rhinitis Anemia of chronic renal failure, stage 3 (moderate) Arthritis Atrial fibrillation and flutter Bruising Cellulitis and abscess of right leg Cellulitis of left leg Cellulitis of right lower extremity Chronic asthma Chronic 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 Closed hip fracture Coronary heart disease Degenerative joint disease of knee, right Diverticulosis Diverticulosis Essential (primary) hypertension Failed fixation of fracture Gout Hay fever History of deep vein thrombosis of lower extremity HLD (hyperlipidemia) Hypothyroidism Iron deficiency anemia due to chronic blood loss Left ventricular diastolic dysfunction Leg wound, left Macular degeneration Non-pressure chronic ulcer of left calf with fat layer exposed Nonrheumatic aortic (valve) stenosis Osteoarthritis Pleural plaque Presence of cardiac pacemaker Pulmonary nodule Right knee DJD Secondary pulmonary arterial hypertension Skin cancer Traumatic open wound of right lower leg with infection Venous ulcer with fat layer exposed Home Medications acetaminophen 500 mg tablet 1,000 mg PO BID PRN PAIN 12/04/18 [History Last Taken 12/03/18] epinephrine 0.3 mg/0.3 mL injection, auto-injector 0.3 mg IJ PRN PRN ANAPHYLAXIS 12/04/18 [History Last Taken Unknown] multivitamin 1 tab PO QAM VITAMIN 04/19/19 [History Last Taken 03/12/23] sertraline 100 mg tablet 100 mg PO DAILY DEPRESSION #90 tabs 06/10/22 [Rx Last Taken 03/12/23] fluticasone propionate 50 mcg/actuation nasal spray,suspension 2 spray intranasal DAILY ALLERGIES #16 grams 06/27/22 [Rx Last Taken 03/12/23] chlorthalidone 25 mg tablet 25 mg PO DAILY BLOOD PRESSURE #90 tabs 07/08/22 [Rx Last Taken 03/12/23] nystatin-triamcinolone 100,000 unit/g-0.1 % topical cream 1 applic topical BID PRN RASH #30 grams 07/25/22 [Rx Last Taken Unknown] levothyroxine 75 mcg tablet 75 mcg PO DAILY THYROID #90 tabs 08/12/22 [Rx Last Taken 03/12/23] fluticasone propionate 230 mcg-salmeterol 21 mcg/actuation HFA inhaler 2 puff inhalation BID ASTHMA #1 device 08/23/22 [Rx Last Taken 03/12/23] montelukast 10 mg tablet 10 mg PO QPM ALLERGIES #30 tabs 09/27/22 [Rx Last Taken 03/11/23] ferrous sulfate 325 mg (65 mg iron) tablet (FeroSul) 325 mg PO DAILY SUPPLEMENT 11/29/22 [History Last Taken 03/12/23] nitroglycerin 0.4 mg sublingual tablet 0.4 mg sublingual Q5-15M PRN CHEST PAIN #25 tabs 12/02/22 [Rx Last Taken Unknown] famotidine 40 mg tablet 40 mg PO DAILY ACID REFLUX #90 tabs 01/02/23 [Rx Last Taken 03/12/23] albuterol sulfate 2.5 mg/3 mL (0.083 %) solution for nebulization 2.5 mg inhalation Q6H PRN SHORTNESS OF BREATH/WHEEZING 01/30/23 [History Last Taken 02/06/23] aspirin 81 mg tablet,delayed release 81 mg PO BID HEART HEALTH 2 weeks #28 tabs 03/08/23 [Rx Last Taken 03/12/23] polyethylene glycol 3350 17 gram oral powder packet 17 g PO DAILY CONSTIPATION 30 days #30 ea 03/08/23 [Rx Last Taken 03/12/23] rivaroxaban 10 mg tablet (Xarelto) 10 mg PO DAILY BLOOD THINNER 2 weeks #14 tabs 03/08/23 [Rx Last Taken 03/12/23] sennosides 8.6 mg-docusate sodium 50 mg tablet (Stool Softener-Stimulant Laxative) 1 tab PO BID CONSTIPATION 30 days #60 tabs 03/08/23 [Rx Last Taken 03/12/23] albuterol sulfate 90 mcg/actuation aerosol inhaler 2 puff inhalation Q4H PRN SHORTNESS OF BREATH/WHEEZING 03/12/23 [History Last Taken Unknown] hydrocodone-acetaminophen 5-325mg 5mg-325mg 1 tab PO Q6H PRN Pain Score 6-10 03/12/23 [History Last Taken Unknown] tiotropium bromide 2.5 mcg/actuation mist for inhalation (Spiriva Respimat) 2 puff inhalation DAILY ASTHMA 03/12/23 [History Last Taken 03/12/23] Allergy/AdvReac Type Severity Reaction Status Date / Time indomethacin [From Indocin] AdvReac Intermediate Itching Verified 03/04/23 20:42 indomethacin sodium AdvReac Intermediate Itching Verified 03/04/23 20:42 [From Indocin] oxycodone HCl [From Percocet] AdvReac Intermediate Itching Verified 03/04/23 20:42 Family History Father Heart disease Colon cancer Sister Diabetes Mother Breast cancer Surgical History H/O hernia repair H/O prostatectomy H/O shoulder surgery H/O total knee replacement History of appendectomy History of appendectomy History of carpal tunnel surgery History of hernia repair History of left heart catheterization (02/25/22) History of prostatectomy History of total knee replacement History of total left hip replacement History of total left hip replacement Social History (Updated 03/12/23 @ 16:[address] Esme Paz DO) housing: [facility] Smoking Status: Never smoker second hand exposure: Yes alcohol intake: current alcohol intake frequency: holidays/special occasions only Alcohol type: beer substance use type: does not use caffeine: Yes Type: coffee Number of servings: 2 what type of physical activity do you participate in: walking frequency: daily giancarlo/confucianism: Congregational seatbelt use: always do you feel safe at home: Yes ROS ROS ED Constitutional Constitutional ED: Denies chills, fever(s) or sweats Eyes Eyes: Denies blurry vision or change in vision ENT ENT ED: Denies ear pain or sore throat Cardiovascular Cardiovascular: Denies chest pain, palpitations or racing heartbeat Respiratory/Chest Respiratory/Chest: Denies cough, dyspnea or sputum Gastrointestinal Gastrointestinal: Reports abdominal pain, constipation and diarrhea; Denies nausea or vomiting Genitourinary Genitourinary ED: Denies dysuria, hematuria or urinary frequency Musculoskeletal Musculoskeletal: Denies arthralgias, myalgias or neck pain Integumentary Denies abscess, Abrasions or rash Neurologic Neurologic: Denies headache(s), paresthesias or weakness Psychiatric Psychiatric: Denies anxiety, depression, suicidal ideation or suicidal thoughts Endocrine Endocrinology: Denies polydipsia or polyuria EXAM Physical Exam Const Vital Signs: 03/12/23 13:31 03/12/23 13:33 03/12/23 14:49 Temperature 97.5 F L 97.2 F L 97.4 F L Temperature Source Temporal Oral Oral Pulse Rate 87 83 87 Pulse Rate [1 (Initial Baseline)] Pulse Rate [2] Pulse Rate [3] Pulse Rate [4] Pulse Rate [5] Respiratory Rate 16 16 16 Respiratory Rate [1 (Initial Baseline)] Respiratory Rate [2] Respiratory Rate [3] Respiratory Rate [4] Respiratory Rate [5] Blood Pressure 117/73 117/73 124/72 H Blood Pressure [1 (Initial Baseline)] Blood Pressure [2] Blood Pressure [3] Blood Pressure [4] Blood Pressure [5] Blood Pressure Mean 87 87 89 Pulse Ox 92 92 94 Oxygen Delivery Method Room Air Room Air Oxygen Delivery Method [1 (Initial Baseline)] Oxygen Delivery Method [3] Oxygen Delivery Method [4] Oxygen Flow Rate (L/min) Oxygen Flow Rate (L/min) [1 (Initial Baseline)] Oxygen Flow Rate (L/min) [2] Oxygen Flow Rate (L/min) [3] Oxygen Flow Rate (L/min) [4] Oxygen Flow Rate (L/min) [5] 03/12/23 15:37 03/12/23 15:35 03/12/23 15:35 Temperature Temperature Source Pulse Rate 82 Pulse Rate [1 (Initial Baseline)] 98 Pulse Rate [2] 99 Pulse Rate [3] 89 Pulse Rate [4] 87 Pulse Rate [5] 83 Respiratory Rate 18 Respiratory Rate [1 (Initial Baseline)] 20 H Respiratory Rate [2] 12 Respiratory Rate [3] 16 Respiratory Rate [4] 16 Respiratory Rate [5] 18 Blood Pressure 119/65 Blood Pressure [1 (Initial Baseline)] 125/77 H Blood Pressure [2] 125/77 H Blood Pressure [3] 101/56 L Blood Pressure [4] 101/56 L Blood Pressure [5] 107/81 H Blood Pressure Mean Pulse Ox 96 Oxygen Delivery Method Room Air Oxygen Delivery Method [1 (Initial Baseline)] Nasal Cannula Oxygen Delivery Method [3] Nasal Cannula Oxygen Delivery Method [4] Nasal Cannula Oxygen Flow Rate (L/min) Oxygen Flow Rate (L/min) [1 (Initial Baseline)] 6 Oxygen Flow Rate (L/min) [2] 6 Oxygen Flow Rate (L/min) [3] 6 Oxygen Flow Rate (L/min) [4] 6 Oxygen Flow Rate (L/min) [5] 6 03/12/23 15:40 03/12/23 15:45 03/12/23 15:57 Temperature Temperature Source Pulse Rate 89 Pulse Rate [1 (Initial Baseline)] Pulse Rate [2] Pulse Rate [3] Pulse Rate [4] Pulse Rate [5] Respiratory Rate 18 Respiratory Rate [1 (Initial Baseline)] Respiratory Rate [2] Respiratory Rate [3] Respiratory Rate [4] Respiratory Rate [5] Blood Pressure 148/70 H Blood Pressure [1 (Initial Baseline)] Blood Pressure [2] Blood Pressure [3] Blood Pressure [4] Blood Pressure [5] Blood Pressure Mean 96 Pulse Ox 100 Oxygen Delivery Method Room Air Room Air Room Air Oxygen Delivery Method [1 (Initial Baseline)] Oxygen Delivery Method [3] Oxygen Delivery Method [4] Oxygen Flow Rate (L/min) 96 Oxygen Flow Rate (L/min) [1 (Initial Baseline)] Oxygen Flow Rate (L/min) [2] Oxygen Flow Rate (L/min) [3] Oxygen Flow Rate (L/min) [4] Oxygen Flow Rate (L/min) [5] Positive well nourished General Appearance ED: NAD; Negative for pallor HEENT Reports moist mucous membranes normocephalic and atraumatic Eyes PERRL Resp normal respiratory effort Effort and Inspection: Negative for respiratory distress Cardio regular rate and regular rhythm GI Auscultation: hypoactive bowel sounds Palpation: tender other (Diffusely) Rectal Exam: fecal impaction Narrative: Distended Back/Spine no CVA tenderness Neuro CN's II-XII intact bilaterally Sensorium / Orientation: alert Sensory Exam: sensory level loss detected Motor Exam: strength 5/5 throughout Psych mental status grossly normal Skin no wounds General Skin Exam: Negative for jaundice or pallor MDM MDM MDM Narrative Medical decision making narrative: 82-year-old male with constipation. He has been on narcotic status post right hip surgery. His wound appears to be clean and dry. On rectal exam he has liquid stool in his depends. Rectal exam shows he does have a large fecal impaction and I did attempt to disimpact this however the patient was in a lot of pain. Reviewed the CT of the abdomen pelvis which shows an ileus pattern and recommendations per general surgery were to place an NG tube. I spoke with Dr. Macias and she recommended that we do a conscious sedation and disimpact him appropriately. Patient was consented for this. Patient placed on the monitor, pulse oximetry, capnography. Patient sedated with 40 mg of propofol with good anesthesia. Patient and disimpacted at the bedside by Dr. Macias. NG tube was placed while the patient was sedated KUB on my interpretation following this showed good placement of the NG tube. Because we were not getting any return we did reinsert the NG tube and on low intermittent suction we were getting return. This appears to be placed within the distal stomach as well, interpretation after repeating the KUB. Conscious sedation time was 12 minutes. Patient tolerated this well. He had some small bleeding from the rectum after the disimpaction. Given that he needs an NG tube he will need to be admitted to the hospital. Impression: 1. Ileus 2. Fecal impaction 3. GI bleed Lab Data Attestation: I reviewed the patient's lab results. Radiography Diagnostic Testing: Clinical Impression(s) from Imaging Studies KUB X-Ray 03/12/23 14:25 IMPRESSION: Nasogastric tube with the distal tip in the proximal stomach. Electronically Signed: Jose Virgen MD at 16:43 EDT , KUB X-Ray 03/12/23 15:50 IMPRESSION: Nasogastric tube with the distal tip in the proximal stomach. Electronically Signed: Jose Virgen MD at 16:29 EDT , Discharge Plan Triage Chief Complaint: Abd Pain ED Provider: Marcos Cueva Dx/Rx/DC Orders Prescriptions: No Action multivitamin Tablet 1 tab PO QAM montelukast 10 mg tablet 10 mg PO QPM Qty: 30 3RF ferrous sulfate [FeroSul] 325 mg (65 mg iron) tablet 325 mg PO DAILY epinephrine 0.3 MG/0.3 ML auto-injector 0.3 mg IJ PRN PRN (Reason: ANAPHYLAXIS ) acetaminophen 500 MG tablet 1,000 mg PO BID PRN (Reason: PAIN ) albuterol sulfate 2.5 mg /3 mL (0.083 %) solution for nebulization 2.5 mg INHALATION Q6H PRN (Reason: SHORTNESS OF BREATH/WHEEZING ) polyethylene glycol 3350 17 gram Powder In Packet 17 g PO DAILY 30 Days Qty: 30 0RF sennosides-docusate sodium [Stool Softener-Stimulant Laxat] 8.6-50 mg Tablet 1 tab PO BID 30 Days Qty: 60 0RF Xarelto 10 mg tablet 10 mg PO DAILY 14 Days Qty: 14 0RF aspirin 81 mg tablet,delayed release (DR/EC) 81 mg PO BID 14 Days Qty: 28 0RF albuterol sulfate 90 mcg/actuation HFA aerosol inhaler 2 puff INHALATION Q4H PRN (Reason: SHORTNESS OF BREATH/WHEEZING) hydrocodone-acetaminophen 5-325 mg Tablet 1 tab PO Q6H PRN (Reason: Pain Score 6-10) Spiriva Respimat 2.5 mcg/actuation mist 2 puff INHALATION DAILY sertraline 100 mg tablet 100 mg PO DAILY Qty: 90 1RF fluticasone propionate 50 mcg/actuation spray,suspension 2 spray intranasal DAILY Qty: 16 3RF chlorthalidone 25 mg tablet 25 mg PO DAILY Qty: 90 3RF nystatin-triamcinolone 100,000-0.1 unit/g-% cream 1 applic topical BID PRN (Reason: RASH ) Qty: 30 1RF levothyroxine 75 mcg tablet 75 mcg PO DAILY Qty: 90 3RF fluticasone propion-salmeterol 230-21 mcg/actuation HFA aerosol inhaler 2 puff INHALATION BID Qty: 1 11RF nitroglycerin 0.4 mg tablet, sublingual 0.4 mg sublingual Q5-15M PRN (Reason: CHEST PAIN) Qty: 25 3RF famotidine 40 mg tablet 40 mg PO DAILY Qty: 90 3RF Primary Care Provider: Angelique Grossman Referrals: Angelique Grossman MD [Primary Care Provider] -
[2023-03-12] MEDS: 0.9% Normal Saline (1000mL) 1,000 ML 999 ML IV (15:10)
--- NOTE | 2023-03-12 15:50 | RAD_ITS ---
EXAM: XR ABDOMEN, 1 VIEW CLINICAL INDICATION: ng tube -- KUB with both diaphragms for NG/OG Verification TECHNIQUE: Frontal supine view of the abdomen/pelvis. COMPARISON: No relevant prior studies available. FINDINGS: LOWER THORAX: No acute pathology. GASTROINTESTINAL TRACT: There are gas-filled loops of large and small bowel. ORGANS: Unremarkable as visualized. No organomegaly. No abnormal calcifications. BONES/JOINTS: No acute pathology. SOFT TISSUES: No acute pathology. TUBES, LINES AND DEVICES: Nasogastric tube is in place with the distal tip in the proximal stomach. RAD/Abdomen Single View (Portable) IMPRESSION: Nasogastric tube with the distal tip in the proximal stomach. Electronically Signed: Jose Virgen MD at 16:29 EDT ,
[2023-03-12] MEDS: Propofol 200 MG/20 ML Vial 40 MG IV BOLUS (16:14)
--- NOTE | 2023-03-12 16:20 | PCM.HP.STD ---
HPI - General General Date of Admission: 03/12/23 Date of Service: 03/12/23 Chief Complaint: Abdominal Pain/Distention HPI Narrative CARISSA VANG, is a 82 M who presented to the emergency department from the transitional care unit due to constipation. The patient was unclear when his last normal bowel movement was. He has had 2 recent hospitalizations here with the initial one being 02/06/2023 through 02/11/2023 when he was found to have a right hip fracture. He sustained this after tripping over his dog and underwent percutaneous screw fixation of the right femoral neck on 02/07/2023. He was discharged to TCU and then was readmitted here on 03/04/2023 for constipation as well as a right subacute fracture with cephalic distal placement of the distal fracture fragment and screw fixation device he was taken to the OR on 03/05/2023 for removal of the hardware and a right hip hemiarthroplasty. He also had issues with constipation during that hospitalization as well but it was felt that his constipation was improving and it was likely related to opiate use. He was on MiraLAX twice daily as well as senna and magnesium set rate and transferred to the TCU. He was not having regular bowel movements however at the time of discharge. Over at the TCU he was given enemas and having diarrhea but still had a significantly distended abdomen and was not all that hungry. A CT of the abdomen pelvis was done on 03/11/2023 and showed distention of the small bowel and colonic mask with nondistended bowel in the right inguinal region and general surgery was consulted there. Today he was transferred to the emergency department as an NG was recommended and they felt he would need to be admitted to the hospital if NG was required. General surgery evaluated the patient the emergency department and felt that the CT does show distention of the small bowel and still persisted that NG needed placed. He had a large amount of stool in the colon and was manually disimpacted after sedation with propofol from Dr. Cueva. General surgery felt the rectum seem to be fairly clean of stool at the end of disimpaction. The patient did have some rectal bleeding after disimpaction which is not on it does appear given the severity impaction in the he is on Xarelto for DVT prophylaxis after his surgery. General surgery recommended that we admit him to the medical service and they would follow along for any potential surgical needs and for help with management of his bowel issues. Vital signs were unremarkable. He did have lab earlier today over the TCU and this showed a leukopenia with a mild anemia and mild hypokalemia with a potassium of 3.4. He does have chronic renal disease and his renal function appears to be at his baseline at 1.45. [facility] Medical History Allergic rhinitis Anemia of chronic renal failure, stage 3 (moderate) Arthritis Atrial fibrillation and flutter Bruising Cellulitis and abscess of right leg Cellulitis of left leg Cellulitis of right lower extremity Chronic asthma Chronic 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 Closed hip fracture Coronary heart disease Degenerative joint disease of knee, right Diverticulosis Diverticulosis Essential (primary) hypertension Failed fixation of fracture Gout Hay fever History of deep vein thrombosis of lower extremity HLD (hyperlipidemia) Hypothyroidism Iron deficiency anemia due to chronic blood loss Left ventricular diastolic dysfunction Leg wound, left Macular degeneration Non-pressure chronic ulcer of left calf with fat layer exposed Nonrheumatic aortic (valve) stenosis Osteoarthritis Pleural plaque Presence of cardiac pacemaker Pulmonary nodule Right knee DJD Secondary pulmonary arterial hypertension Skin cancer Traumatic open wound of right lower leg with infection Venous ulcer with fat layer exposed Home Medications acetaminophen 500 mg tablet 1,000 mg PO BID PRN PAIN 12/04/18 [History Last Taken 12/03/18] epinephrine 0.3 mg/0.3 mL injection, auto-injector 0.3 mg IJ PRN PRN ANAPHYLAXIS 12/04/18 [History Last Taken Unknown] multivitamin 1 tab PO QAM VITAMIN 04/19/19 [History Last Taken 03/12/23] sertraline 100 mg tablet 100 mg PO DAILY DEPRESSION #90 tabs 06/10/22 [Rx Last Taken 03/12/23] fluticasone propionate 50 mcg/actuation nasal spray,suspension 2 spray intranasal DAILY ALLERGIES #16 grams 06/27/22 [Rx Last Taken 03/12/23] chlorthalidone 25 mg tablet 25 mg PO DAILY BLOOD PRESSURE #90 tabs 07/08/22 [Rx Last Taken 03/12/23] nystatin-triamcinolone 100,000 unit/g-0.1 % topical cream 1 applic topical BID PRN RASH #30 grams 07/25/22 [Rx Last Taken Unknown] levothyroxine 75 mcg tablet 75 mcg PO DAILY THYROID #90 tabs 08/12/22 [Rx Last Taken 03/12/23] fluticasone propionate 230 mcg-salmeterol 21 mcg/actuation HFA inhaler 2 puff inhalation BID ASTHMA #1 device 08/23/22 [Rx Last Taken 03/12/23] montelukast 10 mg tablet 10 mg PO QPM ALLERGIES #30 tabs 09/27/22 [Rx Last Taken 03/11/23] ferrous sulfate 325 mg (65 mg iron) tablet (FeroSul) 325 mg PO DAILY SUPPLEMENT 11/29/22 [History Last Taken 03/12/23] nitroglycerin 0.4 mg sublingual tablet 0.4 mg sublingual Q5-15M PRN CHEST PAIN #25 tabs 12/02/22 [Rx Last Taken Unknown] famotidine 40 mg tablet 40 mg PO DAILY ACID REFLUX #90 tabs 01/02/23 [Rx Last Taken 03/12/23] albuterol sulfate 2.5 mg/3 mL (0.083 %) solution for nebulization 2.5 mg inhalation Q6H PRN SHORTNESS OF BREATH/WHEEZING 01/30/23 [History Last Taken 02/06/23] aspirin 81 mg tablet,delayed release 81 mg PO BID HEART HEALTH 2 weeks #28 tabs 03/08/23 [Rx Last Taken 03/12/23] polyethylene glycol 3350 17 gram oral powder packet 17 g PO DAILY CONSTIPATION 30 days #30 ea 03/08/23 [Rx Last Taken 03/12/23] rivaroxaban 10 mg tablet (Xarelto) 10 mg PO DAILY BLOOD THINNER 2 weeks #14 tabs 03/08/23 [Rx Last Taken 03/12/23] sennosides 8.6 mg-docusate sodium 50 mg tablet (Stool Softener-Stimulant Laxative) 1 tab PO BID CONSTIPATION 30 days #60 tabs 03/08/23 [Rx Last Taken 03/12/23] albuterol sulfate 90 mcg/actuation aerosol inhaler 2 puff inhalation Q4H PRN SHORTNESS OF BREATH/WHEEZING 03/12/23 [History Last Taken Unknown] hydrocodone-acetaminophen 5-325mg 5mg-325mg 1 tab PO Q6H PRN Pain Score 6-10 03/12/23 [History Last Taken Unknown] tiotropium bromide 2.5 mcg/actuation mist for inhalation (Spiriva Respimat) 2 puff inhalation DAILY ASTHMA 03/12/23 [History Last Taken 03/12/23] Allergy/AdvReac Type Severity Reaction Status Date / Time indomethacin [From Indocin] AdvReac Intermediate Itching Verified 03/04/23 20:42 indomethacin sodium AdvReac Intermediate Itching Verified 03/04/23 20:42 [From Indocin] oxycodone HCl [From Percocet] AdvReac Intermediate Itching Verified 03/04/23 20:42 Family History Father Heart disease Colon cancer Sister Diabetes Mother Breast cancer Surgical History H/O hernia repair H/O prostatectomy H/O shoulder surgery H/O total knee replacement History of appendectomy History of appendectomy History of carpal tunnel surgery History of hernia repair History of left heart catheterization (02/25/22) History of prostatectomy History of total knee replacement History of total left hip replacement History of total left hip replacement Social History (Updated 03/12/23 @ 16:[address] Esme Paz DO) housing: assisted Smoking Status: Never smoker second hand exposure: Yes alcohol intake: current alcohol intake frequency: holidays/special occasions only Alcohol type: beer substance use type: does not use caffeine: Yes Type: coffee Number of servings: 2 what type of physical activity do you participate in: walking frequency: daily giancarlo/rastafari: Jewish seatbelt use: always do you feel safe at home: Yes ROS Constitutional Constitutional: Denies anorexia, change in weight, chills, fatigue, fever(s), malaise, night sweats, weakness or other Eyes Eyes: Denies blurry vision, change in eye color, change in vision, discharge from eye(s), double vision, erythema, eye pain, loss of vision or other ENT HEENT: Reports abnormal hearing and hearing loss; Denies dysphagia, ear pain, epistaxis, headache(s), nasal congestion, nasal discharge, post nasal drip, sinus pressure, sore throat or other Cardiovascular Cardiovascular: Denies chest pain, claudication, dyspnea on exertion, edema, lightheadedness, orthopnea, palpitations, paroxysmal nocturnal dyspnea, rapid heart rate, syncope or other Respiratory/Chest Respiratory/Chest: Denies cough, dyspnea, excessive phlegm production, hemoptysis, productive cough, shortness of breath at rest, shortness of breath with exertion, wheezing or other Gastrointestinal Gastrointestinal: Reports constipation; Denies abdominal pain, coffee ground emesis, diarrhea, dyspepsia, hematemesis, hematochezia, loose stools, melena, nausea, vomiting or other Genitourinary Genitourinary: Denies burning urination, difficulty urinating, dysuria, hematuria, nocturia, urinary frequency, urinary hesitancy, urinary incontinence, urinary urgency or other Musculoskeletal Musculoskeletal: Reports joint pain and joint stiffness; Denies arthralgias, back pain, joint swelling, myalgias, neck pain or other Neurologic Neurologic: Reports abnormal gait; Denies abnormal speech, confusion, disequilibrium, dizziness, focal weakness, headache(s), numbness, paresthesias, seizure-like activity, seizures, syncope, tingling, tremor(s) or other Psychiatric Psychiatric: Denies anxiety, depression, homicidal ideation, suicidal ideation or other Endocrine Endocrinology: Denies change in body appearance, cold intolerance, excessive sweating, heat intolerance, polydipsia, polyuria or other Hematologic/Lymphatic Hematologic/Lymphatic: Denies anemia, easy bleeding, easy bruising, lymphadenopathy or other Allergic/Immunologic Allergic/Immunologic: Denies rhinitis, hives, eczemia, asthma or other Vital Signs Vital Signs Vital Signs: 03/12/23 13:31 03/12/23 13:33 03/12/23 14:49 Temperature 97.5 F L 97.2 F L 97.4 F L Temperature Source Temporal Oral Oral Pulse Rate 87 83 87 Pulse Rate [1 (Initial Baseline)] Pulse Rate [2] Pulse Rate [3] Pulse Rate [4] Pulse Rate [5] Respiratory Rate 16 16 16 Respiratory Rate [1 (Initial Baseline)] Respiratory Rate [2] Respiratory Rate [3] Respiratory Rate [4] Respiratory Rate [5] Blood Pressure 117/73 117/73 124/72 H Blood Pressure [1 (Initial Baseline)] Blood Pressure [2] Blood Pressure [3] Blood Pressure [4] Blood Pressure [5] Blood Pressure Mean 87 87 89 Pulse Ox 92 92 94 Oxygen Delivery Method Room Air Room Air Oxygen Delivery Method [1 (Initial Baseline)] Oxygen Delivery Method [3] Oxygen Delivery Method [4] Oxygen Flow Rate (L/min) Oxygen Flow Rate (L/min) [1 (Initial Baseline)] Oxygen Flow Rate (L/min) [2] Oxygen Flow Rate (L/min) [3] Oxygen Flow Rate (L/min) [4] Oxygen Flow Rate (L/min) [5] 03/12/23 15:37 03/12/23 15:35 03/12/23 15:35 Temperature Temperature Source Pulse Rate 82 Pulse Rate [1 (Initial Baseline)] 98 Pulse Rate [2] 99 Pulse Rate [3] 89 Pulse Rate [4] 87 Pulse Rate [5] 83 Respiratory Rate 18 Respiratory Rate [1 (Initial Baseline)] 20 H Respiratory Rate [2] 12 Respiratory Rate [3] 16 Respiratory Rate [4] 16 Respiratory Rate [5] 18 Blood Pressure 119/65 Blood Pressure [1 (Initial Baseline)] 125/77 H Blood Pressure [2] 125/77 H Blood Pressure [3] 101/56 L Blood Pressure [4] 101/56 L Blood Pressure [5] 107/81 H Blood Pressure Mean Pulse Ox 96 Oxygen Delivery Method Room Air Oxygen Delivery Method [1 (Initial Baseline)] Nasal Cannula Oxygen Delivery Method [3] Nasal Cannula Oxygen Delivery Method [4] Nasal Cannula Oxygen Flow Rate (L/min) Oxygen Flow Rate (L/min) [1 (Initial Baseline)] 6 Oxygen Flow Rate (L/min) [2] 6 Oxygen Flow Rate (L/min) [3] 6 Oxygen Flow Rate (L/min) [4] 6 Oxygen Flow Rate (L/min) [5] 6 03/12/23 15:40 03/12/23 15:45 03/12/23 15:57 Temperature Temperature Source Pulse Rate 89 Pulse Rate [1 (Initial Baseline)] Pulse Rate [2] Pulse Rate [3] Pulse Rate [4] Pulse Rate [5] Respiratory Rate 18 Respiratory Rate [1 (Initial Baseline)] Respiratory Rate [2] Respiratory Rate [3] Respiratory Rate [4] Respiratory Rate [5] Blood Pressure 148/70 H Blood Pressure [1 (Initial Baseline)] Blood Pressure [2] Blood Pressure [3] Blood Pressure [4] Blood Pressure [5] Blood Pressure Mean 96 Pulse Ox 100 Oxygen Delivery Method Room Air Room Air Room Air Oxygen Delivery Method [1 (Initial Baseline)] Oxygen Delivery Method [3] Oxygen Delivery Method [4] Oxygen Flow Rate (L/min) 96 Oxygen Flow Rate (L/min) [1 (Initial Baseline)] Oxygen Flow Rate (L/min) [2] Oxygen Flow Rate (L/min) [3] Oxygen Flow Rate (L/min) [4] Oxygen Flow Rate (L/min) [5] Weight Weight: 77.414 kg Body Mass Index (BMI) 25.9 Physical Exam Const alert, oriented x3 and no apparent distress Constitutional Narrative: Overweight, elderly, white male, lying in bed watching television, appears comfortable and nontoxic, NG is currently in place, appears chronically ill General Appearance: cooperative HEENT normocephalic, head/scalp atraumatic and moist oral mucous membranes HEENT Narrative: NG tube in place, dentition is poor, Mallampati is 2-3, no thrush Resp normal respiratory effort, no retractions, no use of accessory muscles and clear to auscultation bilaterally Auscultation: Negative for rales, rhonchi or wheezes Cardio regular rate, regular rhythm, S1 normal heart sound, S2 normal heart sound, no rub, no gallops, no clicks and no JVD; Negative for no murmurs Cardio Narrative: Of 6 systolic murmur loudest at left lower sternal border GI GI Narrative: Abdomen distended, bowel sounds are high-pitched and tinkling, abdomen is soft with no tenderness Extremity no clubbing, cyanosis or edema Extremity Narrative: Pedal pulses are 2+ Neuro oriented x3, CN's II-XII intact bilaterally and no focal motor deficits Speech: speech normal Psych affect normal Psych Narrative: Eye contact is good, patient interacts appropriately Assessment & Plan Assessment/Plan (1) Ileus: (2) Constipation: (3) Hypokalemia: PLAN: Plan Ileus -Likely related to constipation and narcotic use -NG in place per general surgery -Patient was disimpacted in the emergency department and general surgery feels he is fairly well cleaned out at this point -Enemas every 8 hours -N.p.o. except for ice chips and medications -IV fluids with LR at 75 cc/h while n.p.o. -General surgery consultation Constipation -Likely narcotic related -Management as above -Will need aggressive bowel regimen once we can give him oral medication -For now we will utilize enemas every 8 hours -We will check TSH Hypokalemia -IV potassium replacement -Repeat in a.m. -Check a magnesium level Anemia-acute on chronic -Slightly below his baseline at discharge -We will continue to monitor -Patient did have some rectal bleeding after disimpaction -We will need to continue to monitor as patient is on Xarelto for DVT prophylaxis postoperatively -Continue iron supplementation Hypothyroidism -Check TSH -Continue home levothyroxine Asthma/allergies -Continue home inhalers -Continue Zosyn for -As needed albuterol Hypertension -Continue home chlorthalidone Recent right femoral neck fracture -Initially status post percutaneous screw fixation of the right femoral neck on 02/07/2023 however this migrated became displaced -Right hemiarthroplasty performed on 03/05/[address] Tristan -Continue PT/OT consultation -Will need ongoing therapy at [facility] facility with likely discharge back to [facility] -Continue Xarelto 10 mg daily for 2 weeks for by aspirin 81 mg daily for 2 more weeks -Outpatient orthopedic follow-up required within 2 weeks CKD stage IIIb -Baseline serum creatinine appears to run between 1.4 and 1.6 -Renal function is currently at baseline -Continue to monitor -We will hydrate with LR at 75 cc/h while n.p.o. -Continue to monitor GERD -Continue famotidine Depression -Continue sertraline DVT prophylaxis -Continue Xarelto and aspirin CODE STATUS -Full code as verified on admission Charges/Coding Visit Charges Inpatient E&M: 66820 Init Hosp L2
--- NOTE | 2023-03-12 17:13 | PCM.PN.BLA ---
Progress Note Please see consult note from TCU as patient was seen in TCU prior to him going to the ER today. Patient was disimpacted in the ER with sedation per ER doctor. NG was also placed. Continue NG and enemas?admit to medicine for ileus. We will continue to monitor.
--- NOTE | 2023-03-12 17:35 | NURSING ---
MED SURG GABRIELA ILEUS, FECAL IMPACTION
[2023-03-12 19:28] LABS: Bedside Glucose 83 mg/dL (74-106)
[2023-03-12] MEDS: Lactated Ringers 1,000 ML 75 ML IV (20:31)
[2023-03-12] MEDS: 0.9% Normal Saline (250mL Bag) 250 ML 15 ML IV (20:37)
[2023-03-12] MEDS: Potassium Chloride 10mEq/100mL 10 MEQ/100 ML IV.SOLN. 100 MEQ IV BOLUS ×4 (20:41→23:53)
[2023-03-12] MEDS: Budesonide Respules 0.5 MG/2 ML AMPUL.NEB. INHALATION (21:40)
[2023-03-12] MEDS: Ipratropium/Albuterol Sulfate 3 ML AMPUL.NEB INHALATION (21:40)
[2023-03-12] MEDS: Menthol/Lanolin/Calamine/Znox 113 GM Tube 1 APPLIC TOPICAL (22:57)
[2023-03-12] MEDS: Acetaminophen 650 MG/20 ML UDC 1000 MG NG (22:58)
[2023-03-13 02:30] VITALS: BP 117/70; PULSE 87; RESP 18; TEMP 37.1; O2SAT 98
[2023-03-13] MEDS: Levothyroxine 75 MCG Tablet NG (05:42)
[2023-03-13] MEDS: Acetaminophen 650 MG/20 ML UDC 1000 MG NG ×2 (05:43→14:02)
--- NOTE | 2023-03-13 05:57 | NURSING ---
Patient refusing enema.
[2023-03-13] MEDS: Ipratropium/Albuterol Sulfate 3 ML AMPUL.NEB INHALATION ×2 (07:01→19:34)
[2023-03-13] MEDS: Budesonide Respules 0.5 MG/2 ML AMPUL.NEB. INHALATION ×2 (07:01→19:34)
[2023-03-13 07:02] VITALS: PULSE 78; RESP 16; O2SAT 93
[2023-03-13 07:03] LABS: Absolute Neutrophil Count 3.4 X10^3/uL (2.0-7.7); Eosinophil# 0.02 X10^3/uL; Eosinophils% 0.5 % (0-5); Hematocrit 27.3 % (40-54); Hemoglobin 8.3 g/dL (13.0-16.5); Lymphocyte % 11.4 % (19-41); Mean Corp Hgb Conc 30.4 g/dL (32-36); Mean Corpuscular Hgb 27.5 pg (27.0-32.0); Mean Corpuscular Volume 90.4 fL (80-94); Mean Platelet Vol. 9.5 fl (6.2-12.0); Monocyte# 0.41 X10^3/uL; Monocyte% 9.3 % (0-10); NRBC Flagged by Analyzer 0 % (0-5); Neutrophil # 3.39 X10^3/uL (2.7-7.7); Neutrophil % 77.2 % (47-70); POSITIVE DIFFERENTIAL YES; Platelet Count 221 K/mm3 (150-450); RBC Distribution Width CV 14.9 % (11.6-14.6); RBC Distribution Width SD 49.2 fl (35.1-43.9); Red Blood Count 3.02 M/mm3 (4.6-6.2); White Blood Count 4.4 K/mm3 (4.4-11.0)
[2023-03-13 07:08] LABS: Differential Indicated SCAN CRITERIA MET
[2023-03-13 07:26] LABS: International Normalized Ratio 1.6; Prothrombin Time (Protime)PT. 18.9 SECONDS (11.7-14.9)
--- NOTE | 2023-03-13 07:35 | RAD_ITS ---
STUDY: X-RAY - ABDOMEN/PELVIS REASON FOR EXAM: Male, 82 years old. ileus TECHNIQUE: Single AP view of the abdomen / pelvis. COMPARISON: 03/12/2023 FINDINGS: Nasogastric tube with the tip in the right upper quadrant likely in the antrum the stomach. There is a paralytic ileus of the small intestine with mild gaseous distention. The visualized liver, spleen and kidneys are grossly normal in size and morphology. Normal soft tissue structures. Status post bilateral hip arthroplasty. RAD/Abdomen Single View (Portable) IMPRESSION: No change in adynamic ileus. Electronically Signed: Mauro Pope MD at 18:48 EDT ,
[2023-03-13 07:39] LABS: ALB/GLOB Ratio 0.4 RATIO (0.9-2.4); AST(SGOT) 23 U/L (15-37); Alanine Aminotransfer ALT/SGPT 12 U/L (16-61); Albumin, Serum 1.8 g/dL (3.2-5.0); Alkaline Phosphatase 97 U/L (45-117); Anion Gap 7 (5-15); BUN 28 mg/dL (7-18); Calcium,Total 7.9 mg/dL (8.5-10.1); Chloride 108 mmol/L (98-107); Creatinine, Serum 1.12 mg/dL (0.70-1.30); EST Glomerular Filtration Rate 66 mL/min (>60); Est Glom Filt Rate - Afr Amer 80 mL/min (>60); Globulin 4.4 g/dL (2.2-4.2); Glucose 86 mg/dL (74-106); Phosphorus 2.1 mg/dL (2.5-4.9); Potassium 3.5 mmol/L (3.5-5.1); Protein, Total 6.2 g/dL (6.4-8.2); Sodium Level 138 mmol/L (136-145); Thyroid Stim Hormone (TSH) 5.94 uIU/mL (0.358-3.74)
--- NOTE | 2023-03-13 08:12 | PCM.PN.SRG ---
Subjective Subjective Patient has about 400 cc of bilious fluid at the NG overnight. Patient does state his abdomen does feel better. Patient had a large bowel movement yesterday after the enema and had additional 6 bowel movements overnight and refused additional enemas per nursing. Objective Data Objective Data Vital Signs: Vital Signs Temp Pulse Resp BP Pulse Ox O2 Del Method O2 Flow Rate 98.8 F 78 16 117/70 93 Room Air 96 03/13/23 02:30 03/13/23 07:02 03/13/23 07:02 03/13/23 02:30 03/13/23 07:02 03/13/23 07:02 03/12/23 15:40 Oxygen Flow Rate (L/min) [5] 6 Oxygen Flow Rate (L/min) [4] 6 Oxygen Flow Rate (L/min) [3] 6 Oxygen Flow Rate (L/min) [2] 6 Oxygen Flow Rate (L/min) [1 ( 6 Initial Baseline)] Oxygen Flow Rate (L/min) 96 Oxygen Delivery Method [4] Nasal Cannula Oxygen Delivery Method [3] Nasal Cannula Oxygen Delivery Method [1 ( Nasal Cannula Initial Baseline)] Oxygen Delivery Method Room Air Weight: 173 lb 1.006 oz Body Mass Index (BMI) 26.3 Intake & Output: Intake and Output for Last 24 Hours 03/11/23 03/12/23 03/13/23 23:59 23:59 23:59 Intake Total 1333.75 / 1473.75 300 / 300 Balance 1333.75 / 1473.75 300 / 300 Lab / Micro Data 03/13/23 06:20 03/13/23 06:20 Labs: Laboratory Results - last 24 hr 03/12/23 19:08: POC Glucose 83 03/13/23 06:20: WBC 4.4, RBC 3.02 L, Hgb 8.3 L, Hct 27.3 L, MCV 90.4, MCH 27.5, MCHC 30.4 L, RDW Std Deviation 49.2 H, RDW Coeff of John 14.9 H, Plt Count 221, MPV 9.5, Immature Gran % (Auto) 1.600 H, Neut % (Auto) 77.2 H, Lymph % (Auto) 11.4 L, Tillman % (Auto) 9.3, Eos % (Auto) 0.5, Baso % (Auto) 0.0, Absolute Neuts (auto) 3.4, Absolute Lymphs (auto) 0.50 L, Nucleated RBC % 0, PT 18.9 H, INR 1.6, Sodium 138, Potassium 3.5, Chloride 108 H, Carbon Dioxide 23.0, Anion Gap 7, BUN 28 H, Creatinine 1.12, Estim Creat Clear Calc 47.50, Est GFR (MDRD) Af Amer 80, Est GFR (MDRD) Non-Af 66, BUN/Creatinine Ratio 25.0 H, Glucose 86, Calcium 7.9 L, Phosphorus 2.1 L, Total Bilirubin 0.30, AST 23, ALT 12 L, Alkaline Phosphatase 97, Total Protein 6.2 L, Albumin 1.8 L, Globulin 4.4 H, Albumin/Globulin Ratio 0.4 L, TSH 5.94 H Radiography Diagnostic Testing: Radiology Impression KUB X-Ray 03/12/23 14:25 IMPRESSION: Nasogastric tube with the distal tip in the proximal stomach. Electronically Signed: Jose Virgen MD at 16:43 EDT , KUB X-Ray 03/12/23 15:50 IMPRESSION: Nasogastric tube with the distal tip in the proximal stomach. Electronically Signed: Jose Virgen MD at 16:29 EDT , Physical Exam Narrative NG in place Const oriented x3 and no apparent distress Resp normal respiratory effort Cardio regular rate GI soft to palpation and non-tender Inspection: Negative for abdominal distention Assessment & Plan Assessment/Plan (1) Abdominal pain: (2) Abdominal distension: (3) Constipation: (4) Ileus: PLAN: Plan Patient's abdomen is softer this morning. May try a clamp trial of NG depending on KUB this morning. Would clamp for 4 hours and check residual if okay with then remove and start clears. Cristina Macias M.D. Pager: [phone] [facility] [address] [place] [address], [facility], [address] [place] [address] Office: [phone] Charges/Coding Visit Charges Inpatient E&M: 75494 Subs Hosp L2
[2023-03-13] MEDS: 0.9% Saline Lock 10 ML Syringe IV (08:34)
--- NOTE | 2023-03-13 08:52 | PN.HOSP_ITS ---
Reason for Visit Reason for Visit: Diagnoses Hypokalemia (03/12/23) Ileus, unspecified (03/12/23) Constipation, unspecified (03/12/23) Unspecified abdominal pain (03/12/23) Abdominal distension (gaseous) (03/12/23) Subjective Subjective Abdomen feeling better. +Flatus. Objective Data Objective Data Vital Signs: Vital Signs Temp Pulse Resp BP Pulse Ox O2 Del Method O2 Flow Rate 37.1 C 78 16 117/70 93 Room Air 96 03/13/23 02:30 03/13/23 07:02 03/13/23 07:02 03/13/23 02:30 03/13/23 07:02 03/13/23 07:02 03/12/23 15:40 Oxygen Flow Rate (L/min) [5] 6 Oxygen Flow Rate (L/min) [4] 6 Oxygen Flow Rate (L/min) [3] 6 Oxygen Flow Rate (L/min) [2] 6 Oxygen Flow Rate (L/min) [1 ( 6 Initial Baseline)] Oxygen Flow Rate (L/min) 96 Oxygen Delivery Method [4] Nasal Cannula Oxygen Delivery Method [3] Nasal Cannula Oxygen Delivery Method [1 ( Nasal Cannula Initial Baseline)] Oxygen Delivery Method Room Air Weight: 78.5 kg Body Mass Index (BMI) 26.3 Intake & Output: Intake and Output for Last 24 Hours 03/11/23 03/12/23 03/13/23 23:59 23:59 23:59 Intake Total 1333.75 / 1473.75 1231.25 / 1231.25 Balance 1333.75 / 1473.75 1231.25 / 1231.25 Lab / Micro Data 03/13/23 06:20 03/13/23 06:20 Labs: Laboratory Results - last 24 hr 03/12/23 19:08: POC Glucose 83 03/13/23 06:20: WBC 4.4, RBC 3.02 L, Hgb 8.3 L, Hct 27.3 L, MCV 90.4, MCH 27.5, MCHC 30.4 L, RDW Std Deviation 49.2 H, RDW Coeff of John 14.9 H, Plt Count 221, MPV 9.5, Immature Gran % (Auto) 1.600 H, Neut % (Auto) 77.2 H, Lymph % (Auto) 11.4 L, Reeves % (Auto) 9.3, Eos % (Auto) 0.5, Baso % (Auto) 0.0, Absolute Neuts (auto) 3.4, Absolute Lymphs (auto) 0.50 L, Nucleated RBC % 0, PT 18.9 H, INR 1.6, Sodium 138, Potassium 3.5, Chloride 108 H, Carbon Dioxide 23.0, Anion Gap 7, BUN 28 H, Creatinine 1.12, Estim Creat Clear Calc 47.50, Est GFR (MDRD) Af Amer 80, Est GFR (MDRD) Non-Af 66, BUN/Creatinine Ratio 25.0 H, Glucose 86, C alcium 7.9 L, Phosphorus 2.1 L, Total Bilirubin 0.30, AST 23, ALT 12 L, Alkaline Phosphatase 97, Total Protein 6.2 L, Albumin 1.8 L, Globulin 4.4 H, Albumin/Globulin Ratio 0.4 L, TSH 5.94 H Radiography Diagnostic Testing: Radiology Impression KUB X-Ray 03/12/23 14:25 IMPRESSION: Nasogastric tube with the distal tip in the proximal stomach. Electronically Signed: Jose Virgen MD at 16:43 EDT , KUB X-Ray 03/12/23 15:50 IMPRESSION: Nasogastric tube with the distal tip in the proximal stomach. Electronically Signed: Jose Virgen MD at 16:29 EDT , Physical Exam Const alert and no apparent distress HEENT head/scalp atraumatic and moist oral mucous membranes Resp normal respiratory effort, no retractions, no use of accessory muscles and clear to auscultation bilaterally Cardio regular rate, regular rhythm, S1 normal heart sound and S2 normal heart sound GI normal to inspection, nondistended, normoactive bowel sounds, soft to palpation, non-tender and non-distended Auscultation: hypoactive bowel sounds Assessment & Plan Assessment/Plan (1) Ileus: PLAN: Surgery following. Surgery following. NG clamped and since dc'd and started on clears. If persists, consider dc narcotics. (2) Constipation: QUALIFIERS: Constipation type: unspecified constipation type Qualified Code(s): K59.00 - Constipation, unspecified PLAN: complicates picture minimize narcotics. PLAN: Plan Chonic conditions: * anemia: monitor * hypothyroidism: elevated TSH. check free T4 * Asthma/allergies-Continue home inhalers PRN albuterol * Hypertension-Continue home chlorthalidone * Recent right femoral neck fracture-Initially status post percutaneous screw fixation of the right femoral neck on 02/07/2023 however this migrated became displaced-Right hemiarthroplasty performed on 03/05/[address] Tristan- Continue PT/OT consultation-Will need [facility] detention facility with likely discharge back to TCU-Continue Xarelto 10 mg daily for 2 weeks for by aspirin 81 mg daily for 2 more weeks-Outpatient orthopedic follow-up required within 2 weeks * CKD stage IIIb-Baseline serum creatinine appears to run between 1.4 and 1.6- Renal function is currently at baseline-Continue to monitor-We will hydrate with LR at 75 cc/h while n.p.o.-Continue to monitor * GERD-Continue famotidine * Depression-Continue sertraline VTE proph: not indicated as pt currently anticoagulated. CODE STATUS -Full code as verified on admission Charges/Coding Visit Charges Inpatient E&M: 72966 Subs Hosp L2
[2023-03-13 08:53] LABS: Differential Comment SCANNED
[2023-03-13] MEDS: Chlorthalidone 50 MG Tablet 25 MG NG (09:30)
[2023-03-13] MEDS: Famotidine 20 MG Tablet 40 MG NG (09:31)
[2023-03-13] MEDS: Sertraline 100 MG Tablet NG (09:31)
[2023-03-13] MEDS: Rivaroxaban 10 MG Tablet NG (09:31)
[2023-03-13] MEDS: Aspirin 81 MG TAB.CHEW NG (09:31)
[2023-03-13] MEDS: Menthol/Lanolin/Calamine/Znox 113 GM Tube 1 APPLIC TOPICAL ×3 (09:32→20:51)
[2023-03-13 09:54] LABS: T4 Free Direct 1.16 ng/dL (0.76-1.46)
--- NOTE | 2023-03-13 09:55 | NURSING ---
Pt refused enema. Education on rationale for continued enemas explained. Pt states he is passing gas and his stomach feels much softer/less painful.
[2023-03-13 10:01] VITALS: BP 118/64; PULSE 79; RESP 16; TEMP 36.7
[2023-03-13] MEDS: Lactated Ringers 1,000 ML 75 ML IV ×2 (10:28→23:32)
[2023-03-13] MEDS: Fluticasone 0.05% 1 SPRAY NASAL.SRY 2 SPRAY NASAL (11:02)
--- NOTE | 2023-03-13 11:44 | CASEMGMT ---
Social Work MATILDA spoke with pt's and informed that a partial, not complete, Health Care Power of assistant county attorney is on file at [facility] and there is no living will on file. Pt's confirms that pt has completed both documents. took MATILDA's fax number and will call assistant county attorney's office and request documents be faxed to [facility]. AGA Marrero
--- NOTE | 2023-03-13 11:48 | CASEMGMT ---
Social Work SW met with pt and introduced self and role of SW. Pt is admitted from [facility] TCU. Pt discussed discharge plans and pt feels he is improving in TCU and he would like to return there for continued therapy once he is medically ready. Referral to [facility] in TCU and TCU is able to accept pt back. Pt will need precert prior to return. Precert not started at this time, will wait until pt is closer to discharge. Plan: TCU, pending precert AGA Marrero
[2023-03-13] MEDS: Lactulose 20 GM/30 ML UDC PO (14:03)
[2023-03-13 14:37] VITALS: BP 117/62; PULSE 75; RESP 18; TEMP 36.9; O2SAT 93
[2023-03-13] MEDS: Aspirin 81 MG TAB.CHEW PO (16:49)
[2023-03-13 19:34] VITALS: PULSE 75; RESP 20
[2023-03-13 20:48] VITALS: BP 111/69; PULSE 80; RESP 18; TEMP 36.6; O2SAT 93
[2023-03-13] MEDS: Montelukast 10 MG Tablet PO (20:51)
[2023-03-13] MEDS: Acetaminophen 650 MG/20 ML UDC 1000 MG PO (20:52)
[2023-03-14] VITALS (11 sets, daily range): BP systolic 95–124; BP diastolic 54–74; PULSE 72–119; RESP 16–22; TEMP 36.4–38.1; O2SAT 93–100
--- NOTE | 2023-03-14 02:50 | RAD_ITS ---
EXAM: XR CHEST, 1 VIEW CLINICAL INDICATION: Crackles TECHNIQUE: Frontal view of the chest. COMPARISON: 03/04/2023. FINDINGS: LUNGS AND PLEURAL SPACES: Numerous calcified pleural plaques bilaterally unchanged since previous exam. Subsegmental atelectasis in the lung bases. No pneumothorax. No effusion. HEART: Unremarkable. Cardiac silhouette not enlarged. MEDIASTINUM: Central airways and mediastinal contour are unremarkable. BONES/JOINTS: Unremarkable. SOFT TISSUES: Unremarkable. 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 RAD/Chest 1 View (Portable) IMPRESSION: 1. Numerous calcified pleural plaques bilaterally unchanged since previous exam. 2. Subsegmental atelectasis in the lung bases. 3. 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 Electronically Signed: Nestor Segura MD at 3:13 EDT ,
[2023-03-14] MEDS: Albuterol 2.5 MG/3 ML VIAL.NEB. INHALATION (03:06)
[2023-03-14 03:45] LABS: Absolute Neutrophil Count 6.4 X10^3/uL (2.0-7.7); Basophil# 0.01 X10^3/uL; Basophil% 0.1 % (0-1); Eosinophil# 0.03 X10^3/uL; Eosinophils% 0.4 % (0-5); Hematocrit 30.4 % (40-54); Hemoglobin 9.4 g/dL (13.0-16.5); Lymphocyte % 5.6 % (19-41); Mean Corp Hgb Conc 30.9 g/dL (32-36); Mean Corpuscular Hgb 27.6 pg (27.0-32.0); Mean Corpuscular Volume 89.1 fL (80-94); Mean Platelet Vol. 8.9 fl (6.2-12.0); Monocyte# 0.29 X10^3/uL; Monocyte% 4.1 % (0-10); NRBC Flagged by Analyzer 0 % (0-5); Neutrophil # 6.37 X10^3/uL (2.7-7.7); POSITIVE DIFFERENTIAL YES; Platelet Count 251 K/mm3 (150-450); RBC Distribution Width CV 14.9 % (11.6-14.6); RBC Distribution Width SD 47.8 fl (35.1-43.9); Red Blood Count 3.41 M/mm3 (4.6-6.2); White Blood Count 7.2 K/mm3 (4.4-11.0)
[2023-03-14 03:46] LABS: Differential Indicated SCAN CRITERIA MET
[2023-03-14 03:59] LABS: Anion Gap 7 (5-15); BUN 20 mg/dL (7-18); BUN/Creat Ratio 16.4 RATIO (10-20); Calcium,Total 8.2 mg/dL (8.5-10.1); Chloride 107 mmol/L (98-107); Creatinine, Serum 1.22 mg/dL (0.70-1.30); EST Glomerular Filtration Rate 60 mL/min (>60); Est Glom Filt Rate - Afr Amer 73 mL/min (>60); Estimated Creatinine Clearance 43.61 ml/min; Glucose 111 mg/dL (74-106); Potassium 3.5 mmol/L (3.5-5.1); Sodium Level 139 mmol/L (136-145)
[2023-03-14 04:13] LABS: BNP,B-Type NATRIURETIC PEPTIDE 409.2 pg/mL (0-100)
[2023-03-14 04:14] LABS: Lactic Acid 1.5 mmol/L (0.4-1.9)
[2023-03-14 05:05] LABS: Differential Comment SCANNED
[2023-03-14] MEDS: Levothyroxine 75 MCG Tablet PO (05:18)
[2023-03-14] MEDS: dexAMETHasone 4 MG Tablet 6 MG PO (05:18)
[2023-03-14] MEDS: Remdesivir 200 MG in 0.9% Normal Saline (250mL Bag) 210 ML 250 MG IV (05:18)
[2023-03-14] MEDS: Acetaminophen 650 MG/20 ML UDC 1000 MG PO ×2 (05:19→14:48)
[2023-03-14] MEDS: Ipratropium/Albuterol Sulfate 3 ML AMPUL.NEB INHALATION ×2 (07:16→19:48)
--- NOTE | 2023-03-14 07:41 | PN.HOSP_ITS ---
Reason for Visit Reason for Visit: Diagnoses Hypokalemia (03/12/23) Ileus, unspecified (03/12/23) Constipation, unspecified (03/12/23) Unspecified abdominal pain (03/12/23) Abdominal distension (gaseous) (03/12/23) Subjective Subjective Feels well. Had fevers overnight and was diagnosed with COVID 19. Objective Data Objective Data Vital Signs: Vital Signs Temp Pulse Resp BP Pulse Ox O2 Del Method O2 Flow Rate 37.1 C 87 20 H 95/56 L 96 Nasal Cannula 2 03/14/23 04:48 03/14/23 04:48 03/14/23 04:48 03/14/23 04:48 03/14/23 04:48 03/14/23 04:48 03/14/23 04:48 Oxygen Flow Rate (L/min) [5] 6 Oxygen Flow Rate (L/min) [4] 6 Oxygen Flow Rate (L/min) [3] 6 Oxygen Flow Rate (L/min) [2] 6 Oxygen Flow Rate (L/min) [1 ( 6 Initial Baseline)] Oxygen Flow Rate (L/min) 2 Oxygen Delivery Method [4] Nasal Cannula Oxygen Delivery Method [3] Nasal Cannula Oxygen Delivery Method [1 ( Nasal Cannula Initial Baseline)] Oxygen Delivery Method Nasal Cannula Weight: 78.5 kg Body Mass Index (BMI) 26.3 Intake & Output: Intake and Output for Last 24 Hours 03/12/23 03/13/23 03/14/23 23:59 23:59 23:59 Intake Total 1333.75 / 1473.75 2241.25 / 2381.25 1090 / 1090 Output Total 200 / 200 450 / 450 Balance 1333.75 / 1473.75 2041.25 / 2181.25 640 / 640 Medical Nutrition Assessment Dietitian: Malnutrition Criteria Met Start: 03/13/23 14:54 Freq: Status: Active Protocol: Document 03/13/23 14:54 VALENTIN (Rec: 03/13/23 14:54 VALENTIN [id number]) Nutrition Malnutrition Evidence of Malnutrition Exists Yes Malnutrition (severe): Chronic Evidenced By Suboptimal Energy Intake ( Severe),Weight Loss (Severe) Clinical Problem Chronic Disease or Condition Related Malnutrition Etiology severe related to suboptimal appetite Signs/Symptoms as evidenced by 16.9lbs (8.8%) in 2 months and <75% PO intake of estimated needs for >1 month Status Active Problem Recommendation Dietitian Recommendations/Changes ADAT to Transitional diet with goal of regular when medically able to manage medical conditions. RD will order 120mL Ensure Clear 4x with medpass to provide supplemental energy. Recommend Ensure Compact when diet advances >Clear Liquid Lab / Micro Data 03/14/23 03:32 03/14/23 03:32 Labs: Laboratory Results - last 24 hr 03/13/23 06:20: Differential Comment SCANNED, Free T4 1.16 03/14/23 03:32: WBC 7.2, RBC 3.41 L, Hgb 9.4 L, Hct 30.4 L, MCV 89.1, MCH 27.6, MCHC 30.9 L, RDW Std Deviation 47.8 H, RDW Coeff of John 14.9 H, Plt Count 251, MPV 8.9, Immature Gran % (Auto) 0.800, Neut % (Auto) 89.0 H, Lymph % (Auto) 5.6 L, [place] % (Auto) 4.1, Eos % (Auto) 0.4, Baso % (Auto) 0.1, Absolute Neuts (auto) 6.4, Absolute Lymphs (auto) 0.40 L, Nucleated RBC % 0, Differential Comment SCANNED, Sodium 139, Potassium 3.5, Chloride 107, Carbon Dioxide 25.0, Anion Gap 7, BUN 20 H, Creatinine 1.22, Estim Creat Clear Calc 43.61, Est GFR (MDRD) Af Amer 73, Est GFR (MDRD) Non-Af 60, BUN/Creatinine Ratio 16.4, Glucose 111 H, Lactic Acid 1.5, Calcium 8.2 L, B-Natriuretic Peptide 409.2 H, Procalcitonin 0.20 H Micro: Microbiology 03/14/23 03:05 Nasal Secretion SARS-CoV-2 & FLU Antigen (Rapid) - Final SARS-CoV-2 (COVID 19) Radiography Diagnostic Testing: Radiology Impression KUB X-Ray 03/13/23 07:35 IMPRESSION: No change in adynamic ileus. Electronically Signed: Mauro Pope MD at 18:48 EDT , Chest X-Ray 03/14/23 02:50 IMPRESSION: 1. Numerous calcified pleural plaques bilaterally unchanged since previous exam. 2. Subsegmental atelectasis in the lung bases. 3. 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 Electronically Signed: Nestor Segura MD at 3:13 EDT , Physical Exam Const alert and no apparent distress HEENT head/scalp atraumatic and moist oral mucous membranes Resp normal respiratory effort, no retractions, no use of accessory muscles and clear to auscultation bilaterally Cardio regular rate, regular rhythm and S1 normal heart sound GI normal to inspection, nondistended, normoactive bowel sounds, soft to palpation, non-tender and non-distended Assessment & Plan Assessment/Plan (1) Ileus: PLAN: Surgery following. Surgery following. NG clamped and since dc'd. Tolerated clears and now on full liquids. Advanced to regular diet. (2) Constipation: QUALIFIERS: Constipation type: unspecified constipation type Qualified Code(s): K59.00 - Constipation, unspecified PLAN: resolved. would benefit from a bowel regimen on discharge minimize narcotics. (3) COVID-19: PLAN: Diagnosed today at 0305 (negative on the ). Not hypoxic. No treatment indicated. 03/14 is day 0. Quarantine through 03/24 PLAN: Plan Chonic conditions: * anemia: monitor * hypothyroidism: elevated TSH. check free T4 * Asthma/allergies-Continue home inhalers PRN albuterol * Hypertension-Continue home chlorthalidone * Recent right femoral neck fracture-Initially status post percutaneous screw fixation of the right femoral neck on 02/07/2023 however this migrated became displaced-Right hemiarthroplasty performed on 03/05/[address] Tristan- Continue PT/OT consultation-Will need ongoing therapy at [facility]way facility with likely discharge back to [facility]-Continue Xarelto 10 mg daily for 2 weeks for by aspirin 81 mg daily for 2 more weeks-Outpatient orthopedic follow-up required within 2 weeks * CKD stage IIIb-Baseline serum creatinine appears to run between 1.4 and 1.6- Renal function is currently at baseline-Continue to monitor-We will hydrate with LR at 75 cc/h while n.p.o.-Continue to monitor * GERD-Continue famotidine * Depression-Continue sertraline VTE proph: not indicated as pt currently anticoagulated. CODE STATUS -Full code as verified on admission Disposition: back to SNF pending insurance authorization. Case will not be reviewed until 03/17. Charges/Coding Visit Charges Inpatient E&M: 65748 Subs Hosp L2
--- NOTE | 2023-03-14 08:49 | PN.SURG_ITS ---
Subjective Subjective Patient reports tolerating a diet with no abdominal pain. The patient was diagnosed with COVID overnight. Objective Data Objective Data Vital Signs: Vital Signs Temp Pulse Resp BP Pulse Ox O2 Del Method O2 Flow Rate 98.7 F 89 20 H 95/56 L 95 Nasal Cannula 3 03/14/23 04:48 03/14/23 07:20 03/14/23 07:20 03/14/23 04:48 03/14/23 08:47 03/14/23 08:47 03/14/23 08:47 Oxygen Flow Rate (L/min) [5] 6 Oxygen Flow Rate (L/min) [4] 6 Oxygen Flow Rate (L/min) [3] 6 Oxygen Flow Rate (L/min) [2] 6 Oxygen Flow Rate (L/min) [1 ( 6 Initial Baseline)] Oxygen Flow Rate (L/min) 3 Oxygen Delivery Method [4] Nasal Cannula Oxygen Delivery Method [3] Nasal Cannula Oxygen Delivery Method [1 ( Nasal Cannula Initial Baseline)] Oxygen Delivery Method Nasal Cannula Weight: 173 lb 1.006 oz Body Mass Index (BMI) 26.3 Intake & Output: Intake and Output for Last 24 Hours 03/12/23 03/13/23 03/14/23 23:59 23:59 23:59 Intake Total 1333.75 / 1473.75 2241.25 / 2381.25 1090 / 1090 Output Total 200 / 200 450 / 450 Balance 1333.75 / 1473.75 2041.25 / 2181.25 640 / 640 Medical Nutrition Assessment Dietitian: Malnutrition Criteria Met Start: 03/13/23 14:54 Freq: Status: Active Protocol: Document 03/13/23 14:54 LO (Rec: 03/13/23 14:54 [id number]) Nutrition Malnutrition Evidence of Malnutrition Exists Yes Malnutrition (severe): Chronic Evidenced By Suboptimal Energy Intake ( Severe),Weight Loss (Severe) Clinical Problem Chronic Disease or Condition Related Malnutrition Etiology severe related to suboptimal appetite Signs/Symptoms as evidenced by 16.9lbs (8.8%) in 2 months and <75% PO intake of estimated needs for >1 month Status Active Problem Recommendation Dietitian Recommendations/Changes ADAT to Transitional diet with goal of regular when medically able to manage medical conditions. RD will order 120mL Ensure Clear 4x with medpass to provide supplemental energy. Recommend Ensure Compact when diet advances >Clear Liquid Lab / Micro Data 03/14/23 03:32 03/14/23 03:32 Labs: Laboratory Results - last 24 hr 03/13/23 06:20: Differential Comment SCANNED, Free T4 1.16 03/14/23 03:32: WBC 7.2, RBC 3.41 L, Hgb 9.4 L, Hct 30.4 L, MCV 89.1, MCH 27.6, MCHC 30.9 L, RDW Std Deviation 47.8 H, RDW Coeff of John 14.9 H, Plt Count 251, MPV 8.9, Immature Gran % (Auto) 0.800, Neut % (Auto) 89.0 H, Lymph % (Auto) 5.6 L, [place] % (Auto) 4.1, Eos % (Auto) 0.4, Baso % (Auto) 0.1, Absolute Neuts (auto) 6.4, Absolute Lymphs (auto) 0.40 L, Nucleated RBC % 0, Differential Comment SCANNED, Sodium 139, Potassium 3.5, Chloride 107, Carbon Dioxide 25.0, Anion Gap 7, BUN 20 H, Creatinine 1.22, Estim Creat Clear Calc 43.61, Est GFR (MDRD) Af Amer 73, Est GFR (MDRD) Non-Af 60, BUN/Creatinine Ratio 16.4, Glucose 111 H, Lactic Acid 1.5, Calcium 8.2 L, B-Natriuretic Peptide 409.2 H, Procalcitonin 0.20 H Micro: Microbiology 03/14/23 03:05 Nasal Secretion SARS-CoV-2 & FLU Antigen (Rapid) - Final SARS-CoV-2 (COVID 19) Radiography Diagnostic Testing: Radiology Impression KUB X-Ray 03/13/23 07:35 IMPRESSION: No change in adynamic ileus. Electronically Signed: Mauro Pope MD at 18:48 EDT , Chest X-Ray 03/14/23 02:50 IMPRESSION: 1. Numerous calcified pleural plaques bilaterally unchanged since previous exam. 2. Subsegmental atelectasis in the lung bases. 3. 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 Electronically Signed: Nestor Segura MD at 3:13 EDT , Physical Exam Const oriented x3 and no apparent distress Resp normal respiratory effort GI normal to inspection, nondistended, normoactive bowel sounds Assessment & Plan Assessment/Plan (1) Ileus: PLAN: Patient seems to be doing well from a GI standpoint. He tolerated full liquids and had a bowel movement. I will advance him to regular diet. The patient was diagnosed with COVID overnight with respiratory swab. Homero Chin MD Pager: [facility] [address] [place] [address], [address] [place] [address] Office:
[2023-03-14] MEDS: Aspirin 81 MG TAB.CHEW PO ×2 (09:39→17:13)
[2023-03-14] MEDS: Menthol/Lanolin/Calamine/Znox 113 GM Tube 1 APPLIC TOPICAL ×4 (09:39→21:38)
[2023-03-14] MEDS: Famotidine 20 MG Tablet 40 MG PO (09:40)
[2023-03-14] MEDS: Chlorthalidone 50 MG Tablet 25 MG PO (09:40)
[2023-03-14] MEDS: Sertraline 100 MG Tablet PO (09:41)
[2023-03-14] MEDS: Rivaroxaban 10 MG Tablet PO (09:41)
--- NOTE | 2023-03-14 13:06 | CASEMGMT ---
Social Work SW spoke with Penelope in TCU. Penelope states that she spoke with pt's insurance reviewer. TCU and insurance reviewer stating they will review pt's case on Friday for precert back to TCU. Pt to remain in hospital over the weekend and precert will be considered by insurance on Friday pending medical condition. AGA Marrero
[2023-03-14] MEDS: 0.9% Saline Lock 10 ML Syringe IV (21:00)
[2023-03-14] MEDS: Montelukast 10 MG Tablet PO (21:38)
[2023-03-14] MEDS: Remdesivir 100 MG in 0.9% Normal Saline (250mL Bag) 230 ML 250 MG IV (21:39)
[2023-03-15] VITALS (9 sets, daily range): BP systolic 109–116; BP diastolic 61–94; PULSE 66–82; RESP 15–18; TEMP 36.6–37; O2SAT 96–98
[2023-03-15] MEDS: Acetaminophen 500 MG Tablet 1000 MG PO ×3 (02:59→21:08)
[2023-03-15] MEDS: Levothyroxine 75 MCG Tablet PO (02:59)
[2023-03-15] MEDS: Ipratropium/Albuterol Sulfate 3 ML AMPUL.NEB INHALATION ×3 (07:28→19:35)
--- NOTE | 2023-03-15 08:04 | PN.HOSP_ITS ---
Reason for Visit Reason for Visit: Diagnoses Hypokalemia (03/12/23) Ileus, unspecified (03/12/23) Constipation, unspecified (03/12/23) Unspecified abdominal pain (03/12/23) Abdominal distension (gaseous) (03/12/23) COVID-19 (03/12/23) Subjective Subjective Feels tired. Not much appetite, but tolerating PO. +Flatus and BM. Objective Data Objective Data Vital Signs: Vital Signs Temp Pulse Resp BP Pulse Ox O2 Del Method O2 Flow Rate 36.6 C 73 18 110/94 H 98 Room Air 2 03/15/23 02:53 03/15/23 07:29 03/15/23 07:29 03/15/23 02:53 03/15/23 07:29 03/15/23 07:29 03/14/23 09:19 Oxygen Flow Rate (L/min) [5] 6 Oxygen Flow Rate (L/min) [4] 6 Oxygen Flow Rate (L/min) [3] 6 Oxygen Flow Rate (L/min) [2] 6 Oxygen Flow Rate (L/min) [1 ( 6 Initial Baseline)] Oxygen Flow Rate (L/min) 2 Oxygen Delivery Method [4] Nasal Cannula Oxygen Delivery Method [3] Nasal Cannula Oxygen Delivery Method [1 ( Nasal Cannula Initial Baseline)] Oxygen Delivery Method Room Air Weight: 78.5 kg Body Mass Index (BMI) 26.3 Intake & Output: Intake and Output for Last 24 Hours 03/13/23 03/14/23 03/15/23 23:59 23:59 23:59 Intake Total 2241.25 / 2381.25 1340 / 1740 400 / 400 Output Total 200 / 200 1350 / 1400 250 / 250 Balance 2041.25 / 2181.25 -10 / 340 150 / 150 Medical Nutrition Assessment Dietitian: Malnutrition Criteria Met Start: 03/13/23 14:54 Freq: Status: Active Protocol: Document 03/13/23 14:54 VALENTIN (Rec: 03/13/23 14:54 LO [id number]) Nutrition Malnutrition Evidence of Malnutrition Exists Yes Malnutrition (severe): Chronic Evidenced By Suboptimal Energy Intake ( Severe),Weight Loss (Severe) Clinical Problem Chronic Disease or Condition Related Malnutrition Etiology severe related to suboptimal appetite Signs/Symptoms as evidenced by 16.9lbs (8.8%) in 2 months and <75% PO intake of estimated needs for >1 month Status Active Problem Recommendation Dietitian Recommendations/Changes ADAT to Transitional diet with goal of regular when medically able to manage medical conditions. RD will order 120mL Ensure Clear 4x with medpass to provide supplemental energy. Recommend Ensure Compact when diet advances >Clear Liquid Lab / Micro Data 03/15/23 07:54 03/15/23 07:54 Micro: Microbiology 03/14/23 03:05 Nasal Secretion SARS-CoV-2 & FLU Antigen (Rapid) - Final SARS-CoV-2 (COVID 19) Physical Exam Const alert and no apparent distress HEENT head/scalp atraumatic and moist oral mucous membranes Resp normal respiratory effort, no retractions, no use of accessory muscles and clear to auscultation bilaterally Cardio regular rate, regular rhythm, S1 normal heart sound and S2 normal heart sound GI normal to inspection, nondistended, normoactive bowel sounds, soft to palpation, non-tender and non-distended Assessment & Plan Assessment/Plan (1) Ileus: PLAN: Surgery following. Surgery following. NG clamped and since dc'd. Tolerated clears and now on full liquids. Advanced to regular diet. (2) Constipation: QUALIFIERS: Constipation type: unspecified constipation type Qualified Code(s): K59.00 - Constipation, unspecified PLAN: resolved. would benefit from a bowel regimen on discharge minimize narcotics. (3) COVID-19: PLAN: Diagnosed today at 0305 (negative on the ). Not hypoxic. No treatment indicated. 03/14 is day 0. Quarantine through 03/24 PLAN: Plan Chonic conditions: * anemia: monitor * hypothyroidism: elevated TSH. check free T4 * Asthma/allergies-Continue home inhalers PRN albuterol * Hypertension-Continue home chlorthalidone * Recent right femoral neck fracture-Initially status post percutaneous screw fixation of the right femoral neck on 02/07/2023 however this migrated became displaced-Right hemiarthroplasty performed on 03/05/[address] Tristan- Continue PT/OT consultation-[facility]-Continue Xarelto 10 mg daily for 2 weeks for by aspirin 81 mg daily for 2 more weeks-Outpatient orthopedic follow-up required within 2 weeks * CKD stage IIIb-Baseline serum creatinine appears to run between 1.4 and 1.6-Renal function is currently at baseline-Continue to monitor-We will hydrate with LR at 75 cc/h while n.p.o.-Continue to monitor * GERD-Continue famotidine * Depression-Continue sertraline VTE proph: not indicated as pt currently anticoagulated. CODE STATUS -Full code as verified on admission Disposition: back to [facility] pending insurance authorization. Case will not be reviewed until 03/17. Charges/Coding Visit Charges Inpatient E&M: 11289 Subs Hosp L2
[2023-03-15 08:40] LABS: Hematocrit 25.5 % (40-54); Hemoglobin 7.9 g/dL (13.0-16.5); Mean Corpuscular Hgb 27.4 pg (27.0-32.0); Mean Corpuscular Volume 88.5 fL (80-94); Mean Platelet Vol. 9.6 fl (6.2-12.0); Platelet Count 253 K/mm3 (150-450); RBC Distribution Width SD 48.4 fl (35.1-43.9); Red Blood Count 2.88 M/mm3 (4.6-6.2); White Blood Count 5.4 K/mm3 (4.4-11.0)
[2023-03-15 08:59] LABS: ALB/GLOB Ratio 0.4 RATIO (0.9-2.4); AST(SGOT) 17 U/L (15-37); Alanine Aminotransfer ALT/SGPT 11 U/L (16-61); Albumin, Serum 1.8 g/dL (3.2-5.0); Alkaline Phosphatase 94 U/L (45-117); Anion Gap 4 (5-15); BUN 20 mg/dL (7-18); BUN/Creat Ratio 19.8 RATIO (10-20); Calcium,Total 7.6 mg/dL (8.5-10.1); Chloride 108 mmol/L (98-107); Creatinine, Serum 1.01 mg/dL (0.70-1.30); EST Glomerular Filtration Rate 75 mL/min (>60); Est Glom Filt Rate - Afr Amer 90 mL/min (>60); Estimated Creatinine Clearance 52.67 ml/min; Globulin 4.4 g/dL (2.2-4.2); Glucose 74 mg/dL (74-106); Potassium 3.2 mmol/L (3.5-5.1); Protein, Total 6.2 g/dL (6.4-8.2); Sodium Level 136 mmol/L (136-145)
[2023-03-15] MEDS: Chlorthalidone 50 MG Tablet 25 MG PO (10:03)
[2023-03-15] MEDS: dexAMETHasone 4 MG Tablet 6 MG PO (10:04)
[2023-03-15] MEDS: Rivaroxaban 10 MG Tablet PO (10:04)
[2023-03-15] MEDS: Aspirin 81 MG TAB.CHEW PO ×2 (10:04→17:35)
[2023-03-15] MEDS: Famotidine 20 MG Tablet 40 MG PO (10:05)
[2023-03-15] MEDS: Fluticasone 0.05% 1 SPRAY NASAL.SRY 2 SPRAY NASAL (10:05)
[2023-03-15] MEDS: Menthol/Lanolin/Calamine/Znox 113 GM Tube 1 APPLIC TOPICAL ×3 (10:05→21:08)
[2023-03-15] MEDS: Sertraline 100 MG Tablet PO (10:05)
--- NOTE | 2023-03-15 10:42 | PCM.PN.SRG ---
Subjective Subjective No new issues overnight Objective Data Objective Data Vital Signs: Vital Signs Temp Pulse Resp BP Pulse Ox O2 Del Method O2 Flow Rate 98.0 F 81 17 109/61 97 Room Air 2 03/15/23 09:00 03/15/23 09:00 03/15/23 09:00 03/15/23 09:00 03/15/23 09:00 03/15/23 09:00 03/14/23 09:19 Oxygen Flow Rate (L/min) [5] 6 Oxygen Flow Rate (L/min) [4] 6 Oxygen Flow Rate (L/min) [3] 6 Oxygen Flow Rate (L/min) [2] 6 Oxygen Flow Rate (L/min) [1 ( 6 Initial Baseline)] Oxygen Flow Rate (L/min) 2 Oxygen Delivery Method [4] Nasal Cannula Oxygen Delivery Method [3] Nasal Cannula Oxygen Delivery Method [1 ( Nasal Cannula Initial Baseline)] Oxygen Delivery Method Room Air Weight: 173 lb 1.006 oz Body Mass Index (BMI) 26.3 Intake & Output: Intake and Output for Last 24 Hours 03/13/23 03/14/23 03/15/23 23:59 23:59 23:59 Intake Total 2241.25 / 2381.25 1340 / 1740 400 / 400 Output Total 200 / 200 1350 / 1400 250 / 250 Balance 2041.25 / 2181.25 -10 / 340 150 / 150 Medical Nutrition Assessment Dietitian: Malnutrition Criteria Met Start: 03/13/23 14:54 Freq: Status: Active Protocol: Document 03/13/23 14:54 (Rec: 03/13/23 14:54 [id number]) Nutrition Malnutrition Evidence of Malnutrition Exists Yes Malnutrition (severe): Chronic Evidenced By Suboptimal Energy Intake ( Severe),Weight Loss (Severe) Clinical Problem Chronic Disease or Condition Related Malnutrition Etiology severe related to suboptimal appetite Signs/Symptoms as evidenced by 16.9lbs (8.8%) in 2 months and <75% PO intake of estimated needs for >1 month Status Active Problem Recommendation Dietitian Recommendations/Changes ADAT to Transitional diet with goal of regular when medically able to manage medical conditions. RD will order 120mL Ensure Clear 4x with medpass to provide supplemental energy. Recommend Ensure Compact when diet advances >Clear Liquid Lab / Micro Data 03/15/23 07:54 03/15/23 07:54 Labs: Laboratory Results - last 24 hr 03/15/23 07:54: WBC 5.4, RBC 2.88 L, Hgb 7.9 L, Hct 25.5 L, MCV 88.5, MCH 27.4, MCHC 31.0 L, RDW Std Deviation 48.4 H, RDW Coeff of John 15.0 H, Plt Count 253, MPV 9.6, Sodium 136, Potassium 3.2 L, Chloride 108 H, Carbon Dioxide 24.0, Anion Gap 4 L, BUN 20 H, Creatinine 1.01, Estim Creat Clear Calc 52.67, Est GFR (MDRD) Af Amer 90, Est GFR (MDRD) Non-Af 75, BUN/Creatinine Ratio 19.8, Glucose 74, Calcium 7.6 L, Total Bilirubin 0.20, AST 17, ALT 11 L, Alkaline Phosphatase 94, Total Protein 6.2 L, Albumin 1.8 L, Globulin 4.4 H, Albumin/Globulin Ratio 0.4 L Micro: Microbiology 03/14/23 03:05 Nasal Secretion SARS-CoV-2 & FLU Antigen (Rapid) - Final SARS-CoV-2 (COVID 19) Physical Exam Const oriented x3 and no apparent distress Resp normal respiratory effort GI soft to palpation and non-tender Assessment & Plan Assessment/Plan (1) Ileus: PLAN: The patient's ileus seems to have resolved. He tolerated some regular diet yesterday. He may have diet as tolerated. At this point I will sign off please recontact if needed. Homero Chin MD Pager: [facility] [address] [place] [address], [address] [place] [address] Office:
--- NOTE | 2023-03-15 12:59 | EKG12_ITS ---
Test Reason : CP Blood Pressure : / mmHG Vent. Rate : 074 BPM Atrial Rate : 074 BPM P-R Int : 130 ms QRS Dur : 142 ms QT Int : 432 ms P-R-T Axes : 037 050 009 degrees QTc Int : 479 ms Normal sinus rhythm Right bundle branch block Possible Lateral infarct , age undetermined Abnormal ECG When compared with ECG of 04-MAR-2023 21:28, Sinus rhythm has replaced Electronic ventricular pacemaker Confirmed by JERMAINE MOULTON, STACIE ([id number]), pictures editor SAMIA DICKERSON ([id number]) on 03/31/2023 10:46:48 AM Referred By: Confirmed By:JOANNE DEAN MD
--- NOTE | 2023-03-15 13:15 | NURSING ---
Addendum entered by Jodi Wright 03/15/23 14:41: NON STEMI Original Note: C/O INCREASED SOB AND PAIN/PRESSURE UP LT FLANK, CHEST, SHOULDER INTO BACK SHOULDER BLADE. POX 96-97% ON RA. EKG ORDERED, NSR W/RT BBB. DR SIMPSON AWARE
[2023-03-15] MEDS: Remdesivir 100 MG in 0.9% Normal Saline (250mL Bag) 230 ML 250 MG IV (21:08)
[2023-03-15] MEDS: Montelukast 10 MG Tablet PO (21:08)
[2023-03-15] MEDS: 0.9% Normal Saline (250mL Bag) 250 ML 15 ML IV (21:09)
[2023-03-15] MEDS: 0.9% Saline Lock 10 ML Syringe IV (21:09)
[2023-03-16] VITALS (8 sets, daily range): BP systolic 118–138; BP diastolic 68–78; PULSE 64–99; RESP 14–18; TEMP 36.4–37.2; O2SAT 95–98
[2023-03-16] MEDS: Acetaminophen 500 MG Tablet 1000 MG PO ×3 (04:57→21:12)
[2023-03-16] MEDS: Levothyroxine 75 MCG Tablet PO (04:58)
[2023-03-16] MEDS: Ipratropium/Albuterol Sulfate 3 ML AMPUL.NEB INHALATION ×2 (07:42→19:55)
--- NOTE | 2023-03-16 07:56 | PN.HOSP_ITS ---
Reason for Visit Reason for Visit: Diagnoses Hypokalemia (03/12/23) Ileus, unspecified (03/12/23) Constipation, unspecified (03/12/23) Unspecified abdominal pain (03/12/23) Abdominal distension (gaseous) (03/12/23) COVID-19 (03/12/23) Subjective Subjective Eating. +BM today. still feels fatigued. Objective Data Objective Data Vital Signs: Vital Signs Temp Pulse Resp BP Pulse Ox O2 Del Method O2 Flow Rate 37.2 C 68 16 138/78 H 96 Room Air 2 03/16/23 03:00 03/16/23 07:43 03/16/23 07:43 03/16/23 03:00 03/16/23 07:43 03/16/23 07:43 03/14/23 09:19 Oxygen Flow Rate (L/min) [5] 6 Oxygen Flow Rate (L/min) [4] 6 Oxygen Flow Rate (L/min) [3] 6 Oxygen Flow Rate (L/min) [2] 6 Oxygen Flow Rate (L/min) [1 ( 6 Initial Baseline)] Oxygen Flow Rate (L/min) 2 Oxygen Delivery Method [4] Nasal Cannula Oxygen Delivery Method [3] Nasal Cannula Oxygen Delivery Method [1 ( Nasal Cannula Initial Baseline)] Oxygen Delivery Method Room Air Weight: 78.5 kg Body Mass Index (BMI) 26.3 Intake & Output: Intake and Output for Last 24 Hours 03/14/23 03/15/23 03/16/23 23:59 23:59 23:59 Intake Total 1340 / 1740 1150.25 / 1250.25 193.5 / 193.5 Output Total 1350 / 1400 900 / 950 200 / 200 Balance -10 / 340 250.25 / 300.25 -6.5 / -6.5 Medical Nutrition Assessment Dietitian: Malnutrition Criteria Met Start: 03/13/23 14:54 Freq: Status: Active Protocol: Document 03/13/23 14:54 VALENTIN (Rec: 03/13/23 14:54 [id number]) Nutrition Malnutrition Evidence of Malnutrition Exists Yes Malnutrition (severe): Chronic Evidenced By Suboptimal Energy Intake ( Severe),Weight Loss (Severe) Clinical Problem Chronic Disease or Condition Related Malnutrition Etiology severe related to suboptimal appetite Signs/Symptoms as evidenced by 16.9lbs (8.8%) in 2 months and <75% PO intake of estimated needs for >1 month Status Active Problem Recommendation Dietitian Recommendations/Changes ADAT to Transitional diet with goal of regular when medically able to manage medical conditions. RD will order 120mL Ensure Clear 4x with medpass to provide supplemental energy. Recommend Ensure Compact when diet advances >Clear Liquid Lab / Micro Data 03/15/23 07:54 03/15/23 07:54 Labs: Laboratory Results - last 24 hr 03/15/23 07:54: WBC 5.4, RBC 2.88 L, Hgb 7.9 L, Hct 25.5 L, MCV 88.5, MCH 27.4, MCHC 31.0 L, RDW Std Deviation 48.4 H, RDW Coeff of John 15.0 H, Plt Count 253, MPV 9.6, Sodium 136, Potassium 3.2 L, Chloride 108 H, Carbon Dioxide 24.0, Anion Gap 4 L, BUN 20 H, Creatinine 1.01, Estim Creat Clear Calc 52.67, Est GFR (MDRD) Af Amer 90, Est GFR (MDRD) Non-Af 75, BUN/Creatinine Ratio 19.8, Glucose 74, Calcium 7.6 L, Total Bilirubin 0.20, AST 17, ALT 11 L, Alkaline Phosphatase 94, Total Protein 6.2 L, Albumin 1.8 L, Globulin 4.4 H, Albumin/Globulin Ratio 0.4 L Micro: Microbiology 03/14/23 03:05 Nasal Secretion SARS-CoV-2 & FLU Antigen (Rapid) - Final SARS-CoV-2 (COVID 19) Physical Exam Const alert and no apparent distress HEENT head/scalp atraumatic and moist oral mucous membranes Resp normal respiratory effort, no retractions, no use of accessory muscles and clear to auscultation bilaterally Cardio regular rate, regular rhythm, S1 normal heart sound and S2 normal heart sound GI normal to inspection, nondistended, normoactive bowel sounds, soft to palpation, non-tender and non-distended Extremity normal to inspection, full ROM and no clubbing, cyanosis or edema Assessment & Plan Assessment/Plan (1) Ileus: PLAN: Surgery following. Surgery following. NG clamped and since dc'd. Tolerated clears and now on full liquids. Advanced to regular diet. (2) Constipation: QUALIFIERS: Constipation type: unspecified constipation type Qualified Code(s): K59.00 - Constipation, unspecified PLAN: resolved. would benefit from a bowel regimen on discharge minimize narcotics. (3) COVID-19: PLAN: Diagnosed today at 0305 (negative on the ). Not hypoxic. No treatment indicated. 03/14 is day 0. Quarantine through 03/24 PLAN: Plan Chonic conditions: * anemia: monitor * hypothyroidism: elevated TSH. check free T4 * Asthma/allergies-Continue home inhalers PRN albuterol * Hypertension-Continue home chlorthalidone * Recent right femoral neck fracture-Initially status post percutaneous screw fixation of the right femoral neck on 02/07/2023 however this migrated became displaced-Right hemiarthroplasty performed on 03/05/[address] Tristan- Continue PT/OT consultation-Will need ongoing [facility] at [facility] with [facility]-Continue Xarelto 10 mg daily for 2 weeks for by aspirin 81 mg daily for 2 more weeks-Outpatient orthopedic follow-up required within 2 weeks * CKD stage IIIb-Baseline serum creatinine appears to run between 1.4 and 1.6- Renal function is currently at baseline-Continue to monitor-We will hydrate with LR at 75 cc/h while n.p.o.-Continue to monitor * GERD-Continue famotidine * Depression-Continue sertraline VTE proph: not indicated as pt currently anticoagulated. CODE STATUS -Full code as verified on admission Disposition: back to [facility] pending insurance authorization. Case will not be reviewed until 03/17. Charges/Coding Visit Charges Inpatient E&M: 84811 Subs Hosp L2
[2023-03-16] MEDS: Rivaroxaban 10 MG Tablet PO (08:27)
[2023-03-16] MEDS: Famotidine 20 MG Tablet 40 MG PO (08:28)
[2023-03-16] MEDS: Aspirin 81 MG TAB.CHEW PO ×2 (08:28→16:42)
[2023-03-16] MEDS: Sertraline 100 MG Tablet PO (08:28)
[2023-03-16] MEDS: Chlorthalidone 50 MG Tablet 25 MG PO (08:28)
[2023-03-16] MEDS: dexAMETHasone 4 MG Tablet 6 MG PO (08:29)
[2023-03-16] MEDS: Menthol/Lanolin/Calamine/Znox 113 GM Tube 1 APPLIC TOPICAL ×4 (08:30→21:11)
[2023-03-16] MEDS: Fluticasone 0.05% 1 SPRAY NASAL.SRY 2 SPRAY NASAL (08:40)
[2023-03-16] MEDS: Remdesivir 100 MG in 0.9% Normal Saline (250mL Bag) 230 ML 250 MG IV (21:12)
[2023-03-16] MEDS: Montelukast 10 MG Tablet PO (21:12)
[2023-03-16] MEDS: 0.9% Saline Lock 10 ML Syringe IV (21:15)
[2023-03-17] VITALS (8 sets, daily range): BP systolic 108–144; BP diastolic 67–96; PULSE 69–94; RESP 16–20; TEMP 36.4–36.9; O2SAT 96–99
[2023-03-17] MEDS: Levothyroxine 75 MCG Tablet PO (06:23)
[2023-03-17] MEDS: Ipratropium/Albuterol Sulfate 3 ML AMPUL.NEB INHALATION ×3 (07:19→19:38)
--- NOTE | 2023-03-17 07:45 | PN.HOSP_ITS ---
Reason for Visit Reason for Visit: Diagnoses Hypokalemia (03/12/23) Ileus, unspecified (03/12/23) Constipation, unspecified (03/12/23) Unspecified abdominal pain (03/12/23) Abdominal distension (gaseous) (03/12/23) COVID-19 (03/12/23) Subjective Subjective Feels fine. Objective Data Objective Data Vital Signs: Vital Signs Temp Pulse Resp BP Pulse Ox O2 Del Method O2 Flow Rate 36.9 C 72 20 H 136/96 H 96 Room Air 2 03/17/23 02:28 03/17/23 07:19 03/17/23 07:19 03/17/23 02:28 03/17/23 07:23 03/17/23 07:23 03/14/23 09:19 Oxygen Flow Rate (L/min) [5] 6 Oxygen Flow Rate (L/min) [4] 6 Oxygen Flow Rate (L/min) [3] 6 Oxygen Flow Rate (L/min) [2] 6 Oxygen Flow Rate (L/min) [1 ( 6 Initial Baseline)] Oxygen Flow Rate (L/min) 2 Oxygen Delivery Method [4] Nasal Cannula Oxygen Delivery Method [3] Nasal Cannula Oxygen Delivery Method [1 ( Nasal Cannula Initial Baseline)] Oxygen Delivery Method Room Air Weight: 78.5 kg Body Mass Index (BMI) 26.3 Intake & Output: Intake and Output for Last 24 Hours 03/15/23 03/16/23 03/17/23 23:59 23:59 23:59 Intake Total 1150.25 / 1250.25 843.5 / 943.5 339 / 339 Output Total 900 / 950 950 / 1050 500 / 500 Balance 250.25 / 300.25 -106.5 / -106.5 -161 / -161 Medical Nutrition Assessment Dietitian: Malnutrition Criteria Met Start: 03/13/23 14:54 Freq: Status: Active Protocol: Document 03/13/23 14:54 VALENTIN (Rec: 03/13/23 14:54 VALENTIN [id number]) Nutrition Malnutrition Evidence of Malnutrition Exists Yes Malnutrition (severe): Chronic Evidenced By Suboptimal Energy Intake ( Severe),Weight Loss (Severe) Clinical Problem Chronic Disease or Condition Related Malnutrition Etiology severe related to suboptimal appetite Signs/Symptoms as evidenced by 16.9lbs (8.8%) in 2 months and <75% PO intake of estimated needs for >1 month Status Active Problem Recommendation Dietitian Recommendations/Changes ADAT to Transitional diet with goal of regular when medically able to manage medical conditions. RD will order 120mL Ensure Clear 4x with medpass to provide supplemental energy. Recommend Ensure Compact when diet advances >Clear Liquid Lab / Micro Data 03/15/23 07:54 03/15/23 07:54 Micro: Microbiology 03/14/23 03:32 Blood Culture (Wb) - Anticubital Left Blood Culture - Preliminary No growth in 48 hours. 03/14/23 03:05 Nasal Secretion SARS-CoV-2 & FLU Antigen (Rapid) - Final SARS-CoV-2 (COVID 19) Physical Exam Const alert and no apparent distress HEENT head/scalp atraumatic and moist oral mucous membranes Resp normal respiratory effort, no retractions, no use of accessory muscles and clear to auscultation bilaterally Cardio regular rate, regular rhythm, S1 normal heart sound and S2 normal heart sound GI normal to inspection, nondistended, normoactive bowel sounds, soft to palpation, non-tender and non-distended Extremity normal to inspection and full ROM Assessment & Plan Assessment/Plan (1) Ileus: PLAN: Surgery following. Surgery following. NG clamped and since dc'd. Tolerated clears and now on full liquids. Advanced to regular diet. (2) Constipation: QUALIFIERS: Constipation type: unspecified constipation type Qualified Code(s): K59.00 - Constipation, unspecified PLAN: resolved. would benefit from a bowel regimen on discharge minimize narcotics. (3) COVID-19: PLAN: Diagnosed today at 0305 (negative on the ). Not hypoxic. No treatment indicated. 03/14 is day 0. Quarantine through 03/24 PLAN: Plan Chonic conditions: * anemia: monitor * hypothyroidism: elevated TSH. check free T4 * Asthma/allergies-Continue home inhalers PRN albuterol * Hypertension-Continue home chlorthalidone * Recent right femoral neck fracture-Initially status post percutaneous screw fixation of the right femoral neck on 02/07/2023 however this migrated became displaced-Right hemiarthroplasty performed on 03/05/[address] Tristan- Continue PT/OT consultation-[facility] with [facility] to [facility]-Continue Xarelto 10 mg daily for 2 weeks for by aspirin 81 mg daily for 2 more weeks-Outpatient orthopedic follow-up required within 2 weeks * CKD stage IIIb-Baseline serum creatinine appears to run between 1.4 and 1.6- Renal function is currently at baseline-Continue to monitor-We will hydrate with LR at 75 cc/h while n.p.o.-Continue to monitor * GERD-Continue famotidine * Depression-Continue sertraline VTE proph: not indicated as pt currently anticoagulated. CODE STATUS -Full code as verified on admission Disposition: back to [facility] pending insurance authorization. Case will not be reviewed until 03/17. Charges/Coding Visit Charges Inpatient E&M: 64488 Subs Hosp L2
[2023-03-17] MEDS: Sertraline 100 MG Tablet PO (08:53)
[2023-03-17] MEDS: Rivaroxaban 10 MG Tablet PO (08:53)
[2023-03-17] MEDS: dexAMETHasone 4 MG Tablet 6 MG PO (08:53)
[2023-03-17] MEDS: Chlorthalidone 50 MG Tablet 25 MG PO (08:53)
[2023-03-17] MEDS: Aspirin 81 MG TAB.CHEW PO ×2 (08:53→17:14)
[2023-03-17] MEDS: Famotidine 20 MG Tablet 40 MG PO (08:53)
[2023-03-17] MEDS: Menthol/Lanolin/Calamine/Znox 113 GM Tube 1 APPLIC TOPICAL ×4 (08:54→21:53)
[2023-03-17] MEDS: Fluticasone 0.05% 1 SPRAY NASAL.SRY 2 SPRAY NASAL (09:00)
--- NOTE | 2023-03-17 14:04 | CASEMGMT ---
Social Work - Discharge planning update Spoke with Penelope in [facility] and precert has been started for return to [facility]. Plan: [facility] when insurance precert is obtained. SW to follow and assist. -NBA Sumner
--- NOTE | 2023-03-17 14:34 | PCM.TXEXTCAR ---
Diet Diet Order/Speech Therapy: 03/15/23 09:16 Diet: Regular - General Type of Dietary Supplement:: Ensure Compact Is pt able to select menu?: No Routine Orders/Code Status Code Status: Full Code Wound(s) Right Hip: Wound Type: Surgical Incision Right cota: Wound Type: Skin Tear left cota: Wound Type: Abrasion bilat buttocks: Wound Type: excoriated Therapies Weight Bearing: Full weight bearing Physical Therapy: Eval and Treat Occupational Therapy: Eval and Treat Problem/Diagnosis (1) Ileus: Status: Acute Code(s): K56.7 - Ileus, unspecified Plan: Surgery following. Surgery following. NG clamped and since dc'd. Tolerated clears and now on full liquids. Advanced to regular diet. (2) Constipation: Status: Acute Code(s): K59.00 - Constipation, unspecified Plan: resolved. would benefit from a bowel regimen on discharge minimize narcotics. (3) COVID-19: Status: Acute Code(s): U07.1 - COVID-19 Plan: Diagnosed today at 0305 (negative on the ). Not hypoxic. No treatment indicated. 03/14 is day 0. Quarantine through 03/24 Plan Chonic conditions: anemia: monitor hypothyroidism: elevated TSH. check free T4 Asthma/allergies-Continue home inhalers PRN albuterol Hypertension-Continue home chlorthalidone Recent right femoral neck fracture-Initially status post percutaneous screw fixation of the right femoral neck on 02/07/2023 however this migrated became displaced-Right hemiarthroplasty performed on 03/05/[address] Tristan-Continue PT/OT consultation-[facility] with [facility]-Continue Xarelto 10 mg daily for 2 weeks for by aspirin 81 mg daily for 2 more weeks-Outpatient orthopedic follow-up required within 2 weeks CKD stage IIIb-Baseline serum creatinine appears to run between 1.4 and 1.6-Renal function is currently at baseline-Continue to monitor-We will hydrate with LR at 75 cc/h while n.p.o.-Continue to monitor GERD-Continue famotidine Depression-Continue sertraline VTE proph: not indicated as pt currently anticoagulated. CODE STATUS -Full code as verified on admission Disposition: back to [facility] pending insurance authorization. Case will not be reviewed until 03/17. Allergies/Procedures Done in Hospital Allergies indomethacin [From Indocin] Adverse Reaction (Intermediate, Verified 03/04/23 20:42) Itching indomethacin sodium [From Indocin] Adverse Reaction (Intermediate, Verified 03/04/23 20:42) Itching oxycodone HCl [From Percocet] Adverse Reaction (Intermediate, Verified 03/04/23 20:42) Itching Procedures: None Type of Care/Length of Stay Estimated LOS: Convalescent Care Less Than 30 days Type of Care Needed: Skilled Rehab Potential: Good Prognosis: Good Additional Orders/Day of Discharge Day of Discharge: 03/17/23 Dietary and Speech Recommendations Dietitian Recommendations/Changes: continue regular diet as tolerated; will adjust ONS to ensure compact TID w/ meals for additional nutrition if consumed Discharge Plan Admission Admit Date/Time: 03/12/23 16:27 Primary Reason for Your Visit: ileus Attending Provider: Darius Ceballos Primary Care Provider: Angelique Grossman Consulting Providers: Cristina Macias; Esme Paz Instructions Additional Instructions / Restrictions: Quarantine for COVID 19 through 03/24/2023 Discharge Orders/Prescriptions Prescriptions: New acetaminophen 500 mg Tablet 1,000 mg PO Q8 Qty: 0 0RF dexamethasone 4 mg Tablet 6 mg PO DAILYCM Qty: 0 0RF Rx Instructions: through 03/23 Chloraseptic Sore Throat 6-10 mg Lozenge 2 philly mucous membrane Q2H PRN PRN (Reason: SORE THROAT) Qty: 0 0RF Continued multivitamin Tablet 1 tab PO QAM montelukast 10 mg tablet 10 mg PO QPM Qty: 30 3RF ferrous sulfate [FeroSul] 325 mg (65 mg iron) tablet 325 mg PO DAILY epinephrine 0.3 MG/0.3 ML auto-injector 0.3 mg IJ PRN PRN (Reason: ANAPHYLAXIS ) acetaminophen 500 MG tablet 1,000 mg PO BID PRN (Reason: PAIN ) albuterol sulfate 2.5 mg /3 mL (0.083 %) solution for nebulization 2.5 mg INHALATION Q6H PRN (Reason: SHORTNESS OF BREATH/WHEEZING ) polyethylene glycol 3350 17 gram Powder In Packet 17 g PO DAILY 30 Days Qty: 30 0RF sennosides-docusate sodium [Stool Softener-Stimulant Laxat] 8.6-50 mg Tablet 1 tab PO BID 30 Days Qty: 60 0RF Xarelto 10 mg tablet 10 mg PO DAILY 14 Days Qty: 14 0RF aspirin 81 mg tablet,delayed release (DR/EC) 81 mg PO BID 14 Days Qty: 28 0RF albuterol sulfate 90 mcg/actuation HFA aerosol inhaler 2 puff INHALATION Q4H PRN (Reason: SHORTNESS OF BREATH/WHEEZING) Spiriva Respimat 2.5 mcg/actuation mist 2 puff INHALATION DAILY sertraline 100 mg tablet 100 mg PO DAILY Qty: 90 1RF fluticasone propionate 50 mcg/actuation spray,suspension 2 spray intranasal DAILY Qty: 16 3RF chlorthalidone 25 mg tablet 25 mg PO DAILY Qty: 90 3RF nystatin-triamcinolone 100,000-0.1 unit/g-% cream 1 applic topical BID PRN (Reason: RASH ) Qty: 30 1RF levothyroxine 75 mcg tablet 75 mcg PO DAILY Qty: 90 3RF fluticasone propion-salmeterol 230-21 mcg/actuation HFA aerosol inhaler 2 puff INHALATION BID Qty: 1 11RF nitroglycerin 0.4 mg tablet, sublingual 0.4 mg sublingual Q5-15M PRN (Reason: CHEST PAIN) Qty: 25 3RF famotidine 40 mg tablet 40 mg PO DAILY Qty: 90 3RF (DME) Handicap placard See Rx Instructions .Route .MEDSUPPLY Qty: 1 0RF Rx Instructions: 5 year RX 03.17.23-03.17.28 Discontinued hydrocodone-acetaminophen 5-325 mg Tablet 1 tab PO Q6H PRN (Reason: Pain Score 6-10) Referrals / Follow Up: Angelique Grossman MD [Primary Care Provider] - Within 2 Weeks Disposition Disposition (needs filled in before D/C Order can be placed): [facility] (2) Constipation Qualifiers: Constipation type: unspecified constipation type Qualified Code(s): K59.00 - Constipation, unspecified
[2023-03-17] MEDS: Remdesivir 100 MG in 0.9% Normal Saline (250mL Bag) 230 ML 250 MG IV (21:53)
[2023-03-17] MEDS: Montelukast 10 MG Tablet PO (21:53)
[2023-03-18 03:52] VITALS: BP 143/77; PULSE 76; RESP 16; TEMP 36.9; O2SAT 95
[2023-03-18] MEDS: Levothyroxine 75 MCG Tablet PO (05:52)
[2023-03-18] MEDS: Ipratropium/Albuterol Sulfate 3 ML AMPUL.NEB INHALATION (07:03)
[2023-03-18 07:04] VITALS: PULSE 78; RESP 16; O2SAT 100
--- NOTE | 2023-03-18 07:51 | PCM.PN.HOSP ---
Reason for Visit Reason for Visit: Diagnoses Hypokalemia (03/12/23) Ileus, unspecified (03/12/23) Constipation, unspecified (03/12/23) Unspecified abdominal pain (03/12/23) Abdominal distension (gaseous) (03/12/23) COVID-19 (03/12/23) Subjective Subjective Feels well. Food tasted a bit off today. Objective Data Objective Data Vital Signs: Vital Signs Temp Pulse Resp BP Pulse Ox O2 Del Method O2 Flow Rate 36.9 C 78 16 143/77 H 100 Room Air 2 03/18/23 03:52 03/18/23 07:04 03/18/23 07:04 03/18/23 03:52 03/18/23 07:04 03/18/23 07:04 03/14/23 09:19 Oxygen Flow Rate (L/min) [5] 6 Oxygen Flow Rate (L/min) [4] 6 Oxygen Flow Rate (L/min) [3] 6 Oxygen Flow Rate (L/min) [2] 6 Oxygen Flow Rate (L/min) [1 ( 6 Initial Baseline)] Oxygen Flow Rate (L/min) 2 Oxygen Delivery Method [4] Nasal Cannula Oxygen Delivery Method [3] Nasal Cannula Oxygen Delivery Method [1 ( Nasal Cannula Initial Baseline)] Oxygen Delivery Method Room Air Weight: 78.5 kg Body Mass Index (BMI) 26.3 Intake & Output: Intake and Output for Last 24 Hours 03/16/23 03/17/23 03/18/23 23:59 23:59 23:59 Intake Total 843.5 / 943.5 589 / 789 300 / 300 Output Total 950 / 1050 1400 / 1700 425 / 425 Balance -106.5 / -106.5 -811 / -911 -125 / -125 Medical Nutrition Assessment Dietitian: Malnutrition Criteria Met Start: 03/13/23 14:54 Freq: Status: Active Protocol: Document 03/17/23 13:20 AG (Rec: 03/17/23 13:20 AG [id number]) Nutrition Malnutrition Evidence of Malnutrition Exists Yes Malnutrition (severe): Chronic Evidenced By Suboptimal Energy Intake ( Severe),Weight Loss (Severe) Clinical Problem Chronic Disease or Condition Related Malnutrition Etiology severe related to suboptimal appetite Signs/Symptoms as evidenced by 16.9lbs (8.8%) in 2 months and <75% PO intake of estimated needs for >1 month Status Active Problem Recommendation Dietitian Recommendations/Changes continue regular diet as tolerated; will adjust ONS to ensure compact TID w/ meals for additional nutrition if consumed Lab / Micro Data 03/15/23 07:54 03/15/23 07:54 Micro: Microbiology 03/14/23 03:32 Blood Culture (Wb) - Anticubital Left Blood Culture - Preliminary No growth in 48 hours. 03/14/23 03:05 Nasal Secretion SARS-CoV-2 & FLU Antigen (Rapid) - Final SARS-CoV-2 (COVID 19) Physical Exam Const alert and no apparent distress GI normal to inspection, nondistended, normoactive bowel sounds, soft to palpation, non-tender and non-distended Assessment & Plan Assessment/Plan (1) Ileus: PLAN: Surgery following. Surgery following. NG clamped and since dc'd. Tolerated clears and now on full liquids. Advanced to regular diet. (2) Constipation: QUALIFIERS: Constipation type: unspecified constipation type Qualified Code(s): K59.00 - Constipation, unspecified PLAN: resolved. would benefit from a bowel regimen on discharge minimize narcotics. (3) COVID-19: PLAN: Diagnosed today at 0305 (negative on the ). Not hypoxic. No treatment indicated. 03/14 is day 0. Quarantine through 03/24 PLAN: Plan Chonic conditions: anemia: monitor hypothyroidism: elevated TSH. check free T4 Asthma/allergies-Continue home inhalers PRN albuterol Hypertension-Continue home chlorthalidone Recent right femoral neck fracture-Initially status post percutaneous screw fixation of the right femoral neck on 02/07/2023 however this migrated became displaced-Right hemiarthroplasty performed on 03/05/[address] Tristan-Continue PT/OT consultation-Will need ongoing therapy at group home facility with likely [facility]-Continue Xarelto 10 mg daily for 2 weeks for by aspirin 81 mg daily for 2 more weeks-Outpatient orthopedic follow-up required within 2 weeks CKD stage IIIb-Baseline serum creatinine appears to run between 1.4 and 1.6-Renal function is currently at baseline-Continue to monitor-We will hydrate with LR at 75 cc/h while n.p.o.-Continue to monitor GERD-Continue famotidine Depression-Continue sertraline VTE proph: not indicated as pt currently anticoagulated. CODE STATUS -Full code as verified on admission Disposition: back to TCU.
[2023-03-18 10:01] VITALS: BP 101/60; PULSE 93; RESP 16; TEMP 36.8; O2SAT 95
--- NOTE | 2023-03-18 10:10 | CASEMGMT ---
Addendum entered by Ria Schumacher 03/18/23 12:11: Social Work Per physician, pt is ready for discharge today. Discharge orders faxed to TCU and Penelope in TCU notified. MATILDA placed call to pt and updated on d/c today to TCU. Nursing aware and notified patient. Disposition: TCU, skilled level of care [facility] Original Note: Social work SW spoke with Penelope in TCU and precert has been obtained. Physician updated that pt can return to TCU today if medically ready. [facility]
[2023-03-18] MEDS: dexAMETHasone 4 MG Tablet 6 MG PO (10:14)
[2023-03-18] MEDS: Aspirin 81 MG TAB.CHEW PO (10:14)
[2023-03-18] MEDS: Chlorthalidone 50 MG Tablet 25 MG PO (10:16)
[2023-03-18] MEDS: Rivaroxaban 10 MG Tablet PO (10:16)
[2023-03-18] MEDS: Famotidine 20 MG Tablet 40 MG PO (10:16)
[2023-03-18] MEDS: Sertraline 100 MG Tablet PO (10:17)
[2023-03-18] MEDS: Menthol/Lanolin/Calamine/Znox 113 GM Tube 1 APPLIC TOPICAL (10:17)
[2023-03-18] MEDS: Fluticasone 0.05% 1 SPRAY NASAL.SRY 2 SPRAY NASAL (10:17)
--- NOTE | 2023-03-18 11:44 | DS.PCM_ITS ---
Providers Date of Admission: 03/12/23 Primary Care Physician: Dr. Angelique Grossman MD Consultations 03/12/23 20:11 Consult: General Surgery Routine Consulting Provider: Cristina Macias Reason for Consult: Ileus EMERGENT Consult: No MD Notified: Yes Date Notified: 03/12/23 Time Notified: 16:31 Method of Notification: ED Physician Initiated Reason For Visit: ILEUS Diagnosis Discharge Diagnosis (1) Ileus: Status: Acute Code(s): K56.7 - Ileus, unspecified Plan: Surgery following. Surgery following. NG clamped and since dc'd. Tolerated clears and now on full l iquids. Advanced to regular diet. (2) Constipation: Status: Acute Code(s): K59.00 - Constipation, unspecified Qualifiers: Constipation type: unspecified constipation type Qualified Code(s): K59.00 - Constipation, unspecified Plan: resolved. would benefit from a bowel regimen on discharge minimize narcotics. (3) COVID-19: Status: Acute Code(s): U07.1 - COVID-19 Plan: Diagnosed today at 0305 (negative on the ). Not hypoxic. No treatment indicated. 03/14 is day 0. Quarantine through 03/24 Plan Chonic conditions: * anemia: monitor * hypothyroidism: elevated TSH. check free T4 * Asthma/allergies-Continue home inhalers PRN albuterol * Hypertension-Continue home chlorthalidone * Recent right femoral neck fracture-Initially status post percutaneous screw fixation of the right femoral neck on 02/07/2023 however this migrated became displaced-Right hemiarthroplasty performed on 03/05/[address] Tristan- Continue PT/OT consultation-Will need ongoing therapy at snf facility with likely discharge back to TCU-Continue Xarelto 10 mg daily for 2 weeks for by aspirin 81 mg daily for 2 more weeks-Outpatient orthopedic follow-up required within 2 weeks * CKD stage IIIb-Baseline serum creatinine appears to run between 1.4 and 1.6- Renal function is currently at baseline-Continue to monitor-We will hydrate with LR at 75 cc/h while n.p.o.-Continue to monitor * GERD-Continue famotidine * Depression-Continue sertraline VTE proph: not indicated as pt currently anticoagulated. CODE STATUS -Full code as verified on admission Disposition: back to TCU. Medications at Discharge Home Medications acetaminophen 500 mg tablet 1,000 mg PO BID PRN PAIN 12/04/18 epinephrine 0.3 mg/0.3 mL injection, auto-injector 0.3 mg IJ PRN PRN ANAPHYLAXIS 12/04/18 multivitamin 1 tab PO QAM VITAMIN 04/19/19 sertraline 100 mg tablet 100 mg PO DAILY DEPRESSION #90 tabs 06/10/22 fluticasone propionate 50 mcg/actuation nasal spray,suspension 2 spray intranasal DAILY ALLERGIES #16 grams 06/27/22 chlorthalidone 25 mg tablet 25 mg PO DAILY BLOOD PRESSURE #90 tabs 07/08/22 nystatin-triamcinolone 100,000 unit/g-0.1 % topical cream 1 applic topical BID PRN RASH #30 grams 07/25/22 levothyroxine 75 mcg tablet 75 mcg PO DAILY THYROID #90 tabs 08/12/22 fluticasone propionate 230 mcg-salmeterol 21 mcg/actuation HFA inhaler 2 puff inhalation BID ASTHMA #1 device 08/23/22 montelukast 10 mg tablet 10 mg PO QPM ALLERGIES #30 tabs 09/27/22 ferrous sulfate 325 mg (65 mg iron) tablet (FeroSul) 325 mg PO DAILY SUPPLEMENT 11/29/22 nitroglycerin 0.4 mg sublingual tablet 0.4 mg sublingual Q5-15M PRN CHEST PAIN #25 tabs 12/02/22 famotidine 40 mg tablet 40 mg PO DAILY ACID REFLUX #90 tabs 01/02/23 albuterol sulfate 2.5 mg/3 mL (0.083 %) solution for nebulization 2.5 mg inhalation Q6H PRN SHORTNESS OF BREATH/WHEEZING 01/30/23 aspirin 81 mg tablet,delayed release 81 mg PO BID HEART HEALTH 2 weeks #28 tabs 03/08/23 polyethylene glycol 3350 17 gram oral powder packet 17 g PO DAILY CONSTIPATION 30 days #30 ea 03/08/23 rivaroxaban 10 mg tablet (Xarelto) 10 mg PO DAILY BLOOD THINNER 2 weeks #14 tabs 03/08/23 sennosides 8.6 mg-docusate sodium 50 mg tablet (Stool Softener-Stimulant Laxative) 1 tab PO BID CONSTIPATION 30 days #60 tabs 03/08/23 albuterol sulfate 90 mcg/actuation aerosol inhaler 2 puff inhalation Q4H PRN SHORTNESS OF BREATH/WHEEZING 03/12/23 tiotropium bromide 2.5 mcg/actuation mist for inhalation (Spiriva Respimat) 2 puff inhalation DAILY ASTHMA 03/12/23 Handicap placard #1 ea 03/17/23 acetaminophen 500 mg tablet 1,000 mg (2 x 500 mg) PO Q8 #0 tabs 03/17/23 benzocaine 6 mg-menthol 10 mg lozenges (Chloraseptic Sore Throat) 2 philly mucous membrane Q2H PRN PRN SORE THROAT #0 ea 03/17/23 dexamethasone 4 mg tablet 6 mg (1.5 x 4 mg) PO DAILYCM #0 tabs 03/17/23 Hospital Course Summary of Care Provided Hospital Course: Patient presented with an ileus. That resolved spontaneously though the patient did require an NG tube for period of time. Patient was found to have COVID-19. Unclear if the COVID-19 may have been precipitating factor. Patient was diagnosed on the and day 0 and patient need to quarantine through today. Afterwards, SARS-CoV-2 starting on March 19, patient will be out of quarantine. Did take a while to get insurance approval but that was obtained today and patient will be discharged to the transitional care unit in stable condition. Medical Records Data Medical Nutrition Assessment Dietitian: Malnutrition Criteria Met Start: 03/13/23 14:54 Freq: Status: Active Protocol: Document 03/17/23 13:20 AG (Rec: 03/17/23 13:20 AG [id number]) Nutrition Malnutrition Evidence of Malnutrition Exists Yes Malnutrition (severe): Chronic Evidenced By Suboptimal Energy Intake ( Severe),Weight Loss (Severe) Clinical Problem Chronic Disease or Condition Related Malnutrition Etiology severe related to suboptimal appetite Signs/Symptoms as evidenced by 16.9lbs (8.8%) in 2 months and <75% PO intake of estimated needs for >1 month Status Active Problem Recommendation Dietitian Recommendations/Changes continue regular diet as tolerated; will adjust ONS to ensure compact TID w/ meals for additional nutrition if consumed Weight / BMI Weight Weight: 78.5 kg Body Mass Index (BMI) 26.3 ABG / Lab / Microbiology Data 03/15/23 07:54 03/15/23 07:54 Microbiology: Microbiology 03/14/23 03:32 Blood Culture (Wb) - Anticubital Left Blood Culture - Preliminary No growth in 48 hours. 03/14/23 03:05 Nasal Secretion SARS-CoV-2 & FLU Antigen (Rapid) - Final SARS-CoV-2 (COVID 19) D/C Instructions Discharge Diet: No restrictions Meaningful Use Info Meaningful Use Diagnoses (Choose all that apply): None applicable Discharge Plan Admission Admit Date/Time: 03/12/23 16:27 Primary Reason for Your Visit: ileus Attending Provider: Darius Ceballos Primary Care Provider: Angelique Grossman Consulting Providers: Cristina Macias; Esme Paz Instructions Additional Instructions / Restrictions: Quarantine for COVID 19 through 03/24/2023 Discharge Orders/Prescriptions Prescriptions: New acetaminophen 500 mg Tablet 1,000 mg PO Q8 Qty: 0 0RF dexamethasone 4 mg Tablet 6 mg PO DAILYCM Qty: 0 0RF Rx Instructions: through 03/23 Chloraseptic Sore Throat 6-10 mg Lozenge 2 philly mucous membrane Q2H PRN PRN (Reason: SORE THROAT) Qty: 0 0RF Continued multivitamin Tablet 1 tab PO QAM montelukast 10 mg tablet 10 mg PO QPM Qty: 30 3RF ferrous sulfate [FeroSul] 325 mg (65 mg iron) tablet 325 mg PO DAILY epinephrine 0.3 MG/0.3 ML auto-injector 0.3 mg IJ PRN PRN (Reason: ANAPHYLAXIS ) acetaminophen 500 MG tablet 1,000 mg PO BID PRN (Reason: PAIN ) albuterol sulfate 2.5 mg /3 mL (0.083 %) solution for nebulization 2.5 mg INHALATION Q6H PRN (Reason: SHORTNESS OF BREATH/WHEEZING ) polyethylene glycol 3350 17 gram Powder In Packet 17 g PO DAILY 30 Days Qty: 30 0RF sennosides-docusate sodium [Stool Softener-Stimulant Laxat] 8.6-50 mg Tablet 1 tab PO BID 30 Days Qty: 60 0RF Xarelto 10 mg tablet 10 mg PO DAILY 14 Days Qty: 14 0RF aspirin 81 mg tablet,delayed release (DR/EC) 81 mg PO BID 14 Days Qty: 28 0RF albuterol sulfate 90 mcg/actuation HFA aerosol inhaler 2 puff INHALATION Q4H PRN (Reason: SHORTNESS OF BREATH/WHEEZING) Spiriva Respimat 2.5 mcg/actuation mist 2 puff INHALATION DAILY sertraline 100 mg tablet 100 mg PO DAILY Qty: 90 1RF fluticasone propionate 50 mcg/actuation spray,suspension 2 spray intranasal DAILY Qty: 16 3RF chlorthalidone 25 mg tablet 25 mg PO DAILY Qty: 90 3RF nystatin-triamcinolone 100,000-0.1 unit/g-% cream 1 applic topical BID PRN (Reason: RASH ) Qty: 30 1RF levothyroxine 75 mcg tablet 75 mcg PO DAILY Qty: 90 3RF fluticasone propion-salmeterol 230-21 mcg/actuation HFA aerosol inhaler 2 puff INHALATION BID Qty: 1 11RF nitroglycerin 0.4 mg tablet, sublingual 0.4 mg sublingual Q5-15M PRN (Reason: CHEST PAIN) Qty: 25 3RF famotidine 40 mg tablet 40 mg PO DAILY Qty: 90 3RF (DME) Handicap placard See Rx Instructions .Route .MEDSUPPLY Qty: 1 0RF Rx Instructions: 5 year RX 03.17.23-03.17.28 Discontinued hydrocodone-acetaminophen 5-325 mg Tablet 1 tab PO Q6H PRN (Reason: Pain Score 6-10) Referrals / Follow Up: Angelique Grossman MD [Primary Care Provider] - Within 2 Weeks Disposition Disposition (needs filled in before D/C Order can be placed): [facility] Facility Charges/Coding Visit Charges Inpatient E&M: 59485 Disch Hosp
== END 2023-03-18 13:55 | disposition skilled nursing facility (03) | DRG 391 ==
LOC: ED 14:49 → MS3 17:58
PROVIDERS: Hospitalist; Admitting Provider Internal Medicine; Emergency Provider Student in an Organized Health Care Education/Training Program; PCP Internal Medicine
DX: K59.03 Drug induced constipation (principal); E43 Unspecified severe protein-calorie malnutrition; U07.1 COVID-19; K62.5 Hemorrhage of anus and rectum; N18.32 Chronic kidney disease, stage 3b; D63.1 Anemia in chronic kidney disease; E03.9 Hypothyroidism, unspecified; F32.A Depression, unspecified; I12.9 Hypertensive chronic kidney disease with stage 1 through stage 4 chronic kidney disease, or unspecified chronic kidney disease; J45.909 Unspecified asthma, uncomplicated; K21.9 Gastro-esophageal reflux disease without esophagitis; E87.6 Hypokalemia; E66.3 Overweight; S72.001D Fracture of unspecified part of neck of right femur, subsequent encounter for closed fracture with routine healing; W22.8XXD Striking against or struck by other objects, subsequent encounter; Z90.49 Acquired absence of other specified parts of digestive tract; Z96.641 Presence of right artificial hip joint; Z68.26 Body mass index [BMI] 26.0-26.9, adult; Z79.01 Long term (current) use of anticoagulants; Z79.82 Long term (current) use of aspirin; Z79.891 Long term (current) use of opiate analgesic; Z79.899 Other long term (current) drug therapy; Z86.718 Personal history of other venous thrombosis and embolism
CPT/HCPCS: 36415; 71045; 73502; 74018; 74177; 80048; 80053; 81002; 82962; 83605; 83880; 84100; 84145; 84439; 84443; 85025; 85027; 85610; 87040; 87086; 87428; 88305; 88311; 93005; 94640; 94668; 94762; 96361; 96365; 96366; 96372; 96375; 96376; 97110; 97116; 97162; 97166; 97530; 97535; 97802; 97803; 99152; 99221; 99252; 99284; 99285; C1776; J7030; J7040; J7050; J7120; Q9967; A4216; G0378; G0463; J0248; J2405

== ENCOUNTER 2023-03-18 14:18 | Inpatient (IN) | payer MEDICARE, SELFPAY ==
[2023-03-18 14:52] VITALS: BP 102/61; PULSE 88; RESP 20; TEMP 36.5; O2SAT 97; BMI 24.1; BMI 24.2
[2023-03-18 15:17] VITALS: BMI 24.2
[2023-03-18 16:28] VITALS: PULSE 73; O2SAT 97
--- NOTE | 2023-03-18 19:46 | PCM.HP.STD ---
HPI - General General Date of Admission: 03/18/23 Date of Service: 03/18/23 Chief Complaint: Here for rehabilitation. HPI Narrative CARISSA VANG, is a 82 Male who presents with followin03/12/2023 [facility] Emergency Department, TCU resident status post right hip hemiarthroplasty with ileus. NG tube recommended per General Surgery. Disimpacted under conscious sedation. 03/12/2023 Admit to Hospital. Ileus secondary to constipation, narcotic use after surgery. NG tube, Enemas q8, NPO, IV fluids, General surgery consult for ileus. Replace potassium, check magnesium. 03/12/2023 General Surgery following. 03/13/2023 NGT 400cc bilious fluid. Abdomen feels better. Large BM, then 6 more BM's, refused further enemas. 03/13/2023 Abdomen better, +flatus. NG clamped, then removed, started clears. Consider stopping narcotics. 03/14/2023 Tolerated clears, now on full liquids. 03/14/2023 +covid. Tolerating diet, no abdominal pain. Advance to regular diet. 03/15/2023 Tired, decreased appetite, tolerating diet, +flatus, +BM. Quarantine thru 03/24/2023 for covid. 03/16/2023 Eating, +BM, tired. covid, quarantine thru 03/24/2023. 03/17/2023 Feels fine. covid, not hypoxic, no treatment indicated. 03/18/2023 Admit to TCU with debility, here for rehabilitation, strengthening, prior to discharge home with . [facility] Medical History Allergic rhinitis Anemia of chronic renal failure, stage 3 (moderate) Arthritis Atrial fibrillation and flutter Bruising Cellulitis and abscess of right leg Cellulitis of left leg Cellulitis of right lower extremity Chronic asthma Chronic 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 Closed hip fracture Coronary heart disease Degenerative joint disease of knee, right Diverticulosis Diverticulosis Essential (primary) hypertension Failed fixation of fracture Gout Hay fever History of deep vein thrombosis of lower extremity HLD (hyperlipidemia) Hypothyroidism Iron deficiency anemia due to chronic blood loss Left ventricular diastolic dysfunction Leg wound, left Macular degeneration Non-pressure chronic ulcer of left calf with fat layer exposed Nonrheumatic aortic (valve) stenosis Osteoarthritis Pleural plaque Presence of cardiac pacemaker Pulmonary nodule Right knee DJD Secondary pulmonary arterial hypertension Skin cancer Traumatic open wound of right lower leg with infection Venous ulcer with fat layer exposed Home Medications acetaminophen 500 mg tablet 1,000 mg PO BID PRN PAIN 12/04/18 [History Last Taken 12/03/18] epinephrine 0.3 mg/0.3 mL injection, auto-injector 0.3 mg IJ PRN PRN ANAPHYLAXIS 12/04/18 [History Last Taken Unknown] multivitamin 1 tab PO QAM VITAMIN 04/19/19 [History Last Taken 03/12/23] sertraline 100 mg tablet 100 mg PO DAILY DEPRESSION #90 tabs 06/10/22 [Rx Last Taken 03/18/23] fluticasone propionate 50 mcg/actuation nasal spray,suspension 2 spray intranasal DAILY ALLERGIES #16 grams 06/27/22 [Rx Last Taken 03/18/23] chlorthalidone 25 mg tablet 25 mg PO DAILY BLOOD PRESSURE #90 tabs 07/08/22 [Rx Last Taken 03/18/23] nystatin-triamcinolone 100,000 unit/g-0.1 % topical cream 1 applic topical BID PRN RASH #30 grams 07/25/22 [Rx Last Taken Unknown] levothyroxine 75 mcg tablet 75 mcg PO DAILY THYROID #90 tabs 08/12/22 [Rx Last Taken 03/18/23] fluticasone propionate 230 mcg-salmeterol 21 mcg/actuation HFA inhaler 2 puff inhalation BID ASTHMA #1 device 08/23/22 [Rx Last Taken 03/12/23] montelukast 10 mg tablet 10 mg PO QPM ALLERGIES #30 tabs 09/27/22 [Rx Last Taken 03/17/23] ferrous sulfate 325 mg (65 mg iron) tablet (FeroSul) 325 mg PO DAILY SUPPLEMENT 11/29/22 [History Last Taken 03/12/23] nitroglycerin 0.4 mg sublingual tablet 0.4 mg sublingual Q5-15M PRN CHEST PAIN #25 tabs 12/02/22 [Rx Last Taken Unknown] famotidine 40 mg tablet 40 mg PO DAILY ACID REFLUX #90 tabs 01/02/23 [Rx Last Taken 03/18/23] albuterol sulfate 2.5 mg/3 mL (0.083 %) solution for nebulization 2.5 mg inhalation Q6H PRN SHORTNESS OF BREATH/WHEEZING 01/30/23 [History Last Taken 02/06/23] aspirin 81 mg tablet,delayed release 81 mg PO BID HEART HEALTH 2 weeks #28 tabs 03/08/23 [Rx Last Taken 03/18/23] polyethylene glycol 3350 17 gram oral powder packet 17 g PO DAILY CONSTIPATION 30 days #30 ea 03/08/23 [Rx Last Taken 03/12/23] rivaroxaban 10 mg tablet (Xarelto) 10 mg PO DAILY BLOOD THINNER 2 weeks #14 tabs 03/08/23 [Rx Last Taken 03/18/23] sennosides 8.6 mg-docusate sodium 50 mg tablet (Stool Softener-Stimulant Laxative) 1 tab PO BID CONSTIPATION 30 days #60 tabs 03/08/23 [Rx Last Taken 03/12/23] albuterol sulfate 90 mcg/actuation aerosol inhaler 2 puff inhalation Q4H PRN SHORTNESS OF BREATH/WHEEZING 03/12/23 [History Last Taken Unknown] tiotropium bromide 2.5 mcg/actuation mist for inhalation (Spiriva Respimat) 2 puff inhalation DAILY ASTHMA 03/12/23 [History Last Taken 03/12/23] Handicap placard #1 ea 03/17/23 [Rx Last Taken Unknown] acetaminophen 500 mg tablet 1,000 mg (2 x 500 mg) PO Q8 Pain #0 tabs 03/17/23 [Rx Last Taken Unknown] benzocaine 6 mg-menthol 10 mg lozenges (Chloraseptic Sore Throat) 2 philly mucous membrane Q2H PRN PRN SORE THROAT #0 ea 03/17/23 [Rx Last Taken Unknown] dexamethasone 4 mg tablet 6 mg (1.5 x 4 mg) PO DAILYCM steroid #0 tabs 03/17/23 [Rx Last Taken 03/18/23] Allergy/AdvReac Type Severity Reaction Status Date / Time indomethacin [From Indocin] AdvReac Intermediate Itching Verified 03/04/23 20:42 indomethacin sodium AdvReac Intermediate Itching Verified 03/04/23 20:42 [From Indocin] oxycodone HCl [From Percocet] AdvReac Intermediate Itching Verified 03/04/23 20:42 Family History Father Heart disease Colon cancer Sister Diabetes Mother Breast cancer Surgical History H/O hernia repair H/O prostatectomy H/O shoulder surgery H/O total knee replacement History of appendectomy History of appendectomy History of carpal tunnel surgery History of hernia repair History of left heart catheterization (02/25/22) History of prostatectomy History of total knee replacement History of total left hip replacement History of total left hip replacement Social History (Updated 03/18/23 @ 19:[address] Bon Alvarez MD) household members: spouse housing: house Smoking Status: Never smoker second hand exposure: Yes alcohol intake: current alcohol intake frequency: holidays/special occasions only Alcohol type: beer substance use type: does not use caffeine: Yes Type: coffee Number of servings: 2 what type of physical activity do you participate in: walking frequency: daily giancarlo/faith: Congregational seatbelt use: always do you feel safe at home: Yes ROS Constitutional Constitutional: Denies chills, fever(s) or weight gain ENT HEENT: Denies headache(s), nasal congestion or nasal discharge Cardiovascular Cardiovascular: Denies chest pain or palpitations Respiratory/Chest Respiratory/Chest: Denies cough, excessive phlegm production or shortness of breath with exertion Gastrointestinal Gastrointestinal: Denies abdominal pain, nausea or vomiting Genitourinary Genitourinary: Denies dysuria Musculoskeletal Musculoskeletal: Denies joint pain or joint swelling Integumentary Integumentary: Denies rash or wounds Neurologic Neurologic: Denies focal weakness, numbness or tingling Psychiatric Psychiatric: Denies anxiety, auditory hallucinations, depression, homicidal ideation or suicidal ideation Vital Signs Vital Signs Vital Signs: 03/18/23 14:52 03/18/23 16:28 Temperature 97.7 F L Temperature Source Oral Pulse Rate 88 73 Pulse Rhythm Regular Pulse Strength Normal (2+) Respiratory Rate 20 H Respiratory Effort Normal Non-Labored Respiratory Depth Normal Respiratory Pattern Normal Blood Pressure 102/61 Blood Pressure Mean 74 Blood Pressure Source Monitor Blood Pressure Position Semi-Fowlers Blood Pressure Location Right Arm Pulse Ox 97 97 Oxygen Delivery Method Room Air Room Air Weight Weight: 72.257 kg Body Mass Index (BMI) 24.2 Physical Exam Const alert General Appearance: cooperative HEENT normocephalic Eyes PERRL and EOMs intact bilaterally Neck supple, no JVD and no carotid bruits Resp normal respiratory effort, normal air movement and clear to auscultation bilaterally Cardio regular rate and regular rhythm GI normal to inspection, nondistended, normoactive bowel sounds, non-tender and non-distended Extremity normal capillary refill General Extremity: Negative for edema Skin no rashes or lesions noted General Skin Exam: no breakdown Psych affect normal Appearance: appropriate Assessment & Plan Assessment/Plan (1) Debility: (2) Fecal impaction of colon: (3) Ileus: (4) COVID-19: (5) Hypokalemia: (6) History of right hip hemiarthroplasty: (7) Closed right hip fracture: QUALIFIERS: Encounter type: initial encounter Qualified Code(s): S72.001A - Fracture of unspecified part of neck of right femur, initial encounter for closed fracture (8) COPD (chronic obstructive pulmonary disease): (9) Hypertension: (10) Iron deficiency anemia: (11) Asthma: QUALIFIERS: Asthma complication type: unspecified Asthma severity: unspecified severity (12) Hypothyroidism: (13) Depression: PLAN: Plan 82 year old male with below past medical history hospitalized for ileus, fecal impaction of colon, complicated by covid-19, admitted to TCU with debility, here for rehabilitation, strengthening, prior to discharge home with . Debility - PT/OT. Pain - Tylenol 1000mg q8. Bowel - Miralax 17gm daily, senna/colace 2 tablets bid, Magnesium citrate 300ml po daily prn. Adult immunization - Administer pneumonia vaccine, covid19 vaccine, flu vaccine as appropriate. DVT prophylaxis - Aspirin 81mg bid thru 04/01/2023. COPD - Advair 1 puff bid, Incruse 1 puff daily, Albuterol 2.5mg q6h prn. Asthma Advair 1 puff bid, Singulair 10mg daily, Albuterol 2.5mg q6h prn. Covid-19 - Cepacol 2 lozenges q2h prn, Dexamethasone 6mg daily thru 03/23/2023. Hypertension - Chlorthalidone 25mg daily. Anaphylaxis - Epipen 0.3mg im x 1 prn. GERD - Famotidine 40mg daily. Iron deficiency anemia - Ferrous sulfate 325mg daily. Allergic rhinitis - Flonase 2 sprays nasal daily. Hypothyroidism - Levothyroxine 75mcg daily. Skin irritation - Calmoseptine topical bid, Eucerin topical qhs. Tinea Corporis - Miconazole topical bid. Nutrition - MVI 1 daily. Coronary artery disease - NTG 0.4mg sl q5m prn. 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
[2023-03-18] MEDS: Senna/Docusate Sodium 1 Tablet 2 TABLET PO (22:29)
[2023-03-18] MEDS: Aspirin E.C. 81 MG Tablet PO (22:29)
[2023-03-18] MEDS: Petrolatum 33% Tube 1 APPLIC TOPICAL (22:30)
[2023-03-18] MEDS: Acetaminophen 500 MG Tablet 1000 MG PO (22:30)
[2023-03-18] MEDS: Fluticasone/Salmeterol 232-14 Inhaler 1 PUFF INHALATION (22:30)
[2023-03-18] MEDS: Montelukast 10 MG Tablet PO (22:30)
[2023-03-18] MEDS: Menthol/Lanolin/Calamine/Znox 113 GM Tube 1 APPLIC TOPICAL (22:32)
[2023-03-18] MEDS: Miconazole Nitrate 43 GM Bottle 1 APPLIC TOPICAL (22:32)
[2023-03-19] MEDS: Acetaminophen 500 MG Tablet 1000 MG PO ×3 (05:51→21:21)
[2023-03-19] MEDS: Levothyroxine 75 MCG Tablet PO (05:51)
[2023-03-19 06:04] LABS: Absolute Lymphocyte Count 0.95 X10^3/uL (0.83-4.51); Basophil# 0.03 X10^3/uL; Basophil% 0.5 % (0-1); Eosinophil# 0.03 X10^3/uL; Eosinophils% 0.5 % (0-5); Hemoglobin 8.9 g/dL (13.0-16.5); Lymphocyte # 0.95 X10^3/ul (0.83-4.51); Lymphocyte % 16.7 % (19-41); Mean Corp Hgb Conc 31.8 g/dL (32-36); Mean Corpuscular Hgb 27.9 pg (27.0-32.0); Mean Corpuscular Volume 87.8 fL (80-94); Mean Platelet Vol. 9.5 fl (6.2-12.0); Monocyte# 0.45 X10^3/uL; Monocyte% 7.9 % (0-10); NRBC Flagged by Analyzer 0 % (0-5); Neutrophil # 3.97 X10^3/uL (2.7-7.7); Neutrophil % 69.7 % (47-70); Platelet Count 347 K/mm3 (150-450); RBC Distribution Width SD 48.1 fl (35.1-43.9); Red Blood Count 3.19 M/mm3 (4.6-6.2); White Blood Count 5.7 K/mm3 (4.4-11.0)
[2023-03-19 06:16] LABS: Anion Gap 6 (5-15); BUN 19 mg/dL (7-18); BUN/Creat Ratio 18.4 RATIO (10-20); Calcium,Total 7.9 mg/dL (8.5-10.1); Chloride 104 mmol/L (98-107); Creatinine, Serum 1.03 mg/dL (0.70-1.30); EST Glomerular Filtration Rate 73 mL/min (>60); Est Glom Filt Rate - Afr Amer 88 mL/min (>60); Estimated Creatinine Clearance 51.65 ml/min; Glucose 89 mg/dL (74-106); Potassium 3.5 mmol/L (3.5-5.1); Sodium Level 136 mmol/L (136-145)
[2023-03-19] MEDS: dexAMETHasone 4 MG Tablet 6 MG PO (08:32)
[2023-03-19] MEDS: Multivitamins,Therapeutic Tablet 1 TABLET PO (08:32)
[2023-03-19] MEDS: Aspirin E.C. 81 MG Tablet PO ×2 (08:35→21:22)
[2023-03-19] MEDS: Umeclidinium Bromide Inhaler 1 PUFF INHALATION (08:35)
[2023-03-19] MEDS: Famotidine 20 MG Tablet 40 MG PO (08:36)
[2023-03-19] MEDS: Senna/Docusate Sodium 1 Tablet 2 TABLET PO ×2 (08:36→21:22)
[2023-03-19] MEDS: Polyethylene Glycol 3350 17 GM PACKET PO (08:36)
[2023-03-19] MEDS: Ferrous Sulfate 325 MG Tablet PO (08:37)
[2023-03-19] MEDS: Sertraline 100 MG Tablet PO (08:37)
[2023-03-19] MEDS: Chlorthalidone 50 MG Tablet 25 MG PO (08:37)
[2023-03-19] MEDS: Menthol/Lanolin/Calamine/Znox 113 GM Tube 1 APPLIC TOPICAL ×2 (08:40→21:22)
[2023-03-19] MEDS: Fluticasone/Salmeterol 232-14 Inhaler 1 PUFF INHALATION ×2 (08:40→21:35)
[2023-03-19] MEDS: Miconazole Nitrate 43 GM Bottle 1 APPLIC TOPICAL ×2 (08:40→21:30)
[2023-03-19] MEDS: Fluticasone 0.05% 1 SPRAY NASAL.SRY 2 SPRAY NASAL (08:40)
[2023-03-19] MEDS: 0.9% Saline Lock 10 ML Syringe IV (08:46)
[2023-03-19 09:07] VITALS: BP 96/53; PULSE 83; RESP 16; TEMP 35.7; O2SAT 99
[2023-03-19] MEDS: Tuberculin,Purif.prot.deriv. 50 TU/ML Vial 0.1 ML ID (12:03)
--- NOTE | 2023-03-19 12:49 | NURSING ---
ok to DC sutures today if incision looks good to Rt hip per dr peterson, pt to f/u on 03/28/23 1016
--- NOTE | 2023-03-19 12:55 | RAD_ITS ---
STUDY: X-RAY - PELVIS AND RIGHT HIP REASON FOR EXAM: Male, 82 years old. Aftercare following joint replacement surgery TECHNIQUE: 3 views of the pelvis and hip. COMPARISON: None. FINDINGS: Satisfactory appearance of a right hip arthroplasty. No dislocation. No evidence for loosening. No fractures. Incompletely visualized left hip arthroplasty also appears unremarkable. Normal bilateral iliac wings, sacroiliac joints and visualized sacrum. Normal bilateral superior and inferior pubic rami. Normal pubic symphysis. Normal bilateral ischial tuberosities. RAD/HIP, UNI W/ Pelvis 2-3 Views IMPRESSION: Satisfactory appearance of a right hip arthroplasty. No dislocation. No evidence for loosening. No fractures. Electronically Signed: Juan Cottrell MD at 17:47 EDT ,
--- NOTE | 2023-03-19 13:30 | NURSING ---
Dr. Tristan's office called regarding X-ray. Per Dr. Tristan continue with therapy and WBAT and F/U in 4 weeks. Appt. Scheduled for 04/16 @ 10:15am. Appt Scheduled for 03/28 cancelled.
[2023-03-19] MEDS: Montelukast 10 MG Tablet PO (21:22)
[2023-03-19] MEDS: Petrolatum 33% Tube 1 APPLIC TOPICAL (21:34)
[2023-03-19 21:35] VITALS: PULSE 88; RESP 18; O2SAT 98
[2023-03-20] MEDS: Levothyroxine 75 MCG Tablet PO (05:44)
[2023-03-20] MEDS: Acetaminophen 500 MG Tablet 1000 MG PO ×3 (05:44→22:46)
[2023-03-20 06:26] VITALS: PULSE 94; RESP 18; O2SAT 96
--- NOTE | 2023-03-20 06:31 | NURSING ---
Sutures d/c per order. 17 sutures removed from R hip surgical incision, pt nam. removal well. 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
[2023-03-20] MEDS: Sertraline 100 MG Tablet PO (07:47)
[2023-03-20] MEDS: dexAMETHasone 4 MG Tablet 6 MG PO (07:47)
[2023-03-20] MEDS: Famotidine 20 MG Tablet 40 MG PO (07:47)
[2023-03-20] MEDS: Senna/Docusate Sodium 1 Tablet 2 TABLET PO (07:47)
[2023-03-20] MEDS: Aspirin E.C. 81 MG Tablet PO ×2 (07:47→22:46)
[2023-03-20] MEDS: Chlorthalidone 50 MG Tablet 25 MG PO (07:48)
[2023-03-20] MEDS: Polyethylene Glycol 3350 17 GM PACKET PO (07:48)
[2023-03-20] MEDS: Multivitamins,Therapeutic Tablet 1 TABLET PO (07:48)
[2023-03-20] MEDS: Menthol/Lanolin/Calamine/Znox 113 GM Tube 1 APPLIC TOPICAL ×2 (07:54→22:44)
[2023-03-20] MEDS: Fluticasone 0.05% 1 SPRAY NASAL.SRY 2 SPRAY NASAL (07:55)
[2023-03-20] MEDS: Fluticasone/Salmeterol 232-14 Inhaler 1 PUFF INHALATION ×2 (07:55→22:53)
[2023-03-20] MEDS: Miconazole Nitrate 43 GM Bottle 1 APPLIC TOPICAL ×2 (07:55→22:52)
[2023-03-20] MEDS: Umeclidinium Bromide Inhaler 1 PUFF INHALATION (07:56)
--- NOTE | 2023-03-20 07:56 | NURSING ---
id band not scanned d/t pt in covid precautions
[2023-03-20] MEDS: Ferrous Sulfate 325 MG Tablet PO (13:24)
--- NOTE | 2023-03-20 14:46 | PHA.CONS_ITS ---
TCU RX Drug Regimen Review Subjective/Objective Subjective/Objective: Subjective: 82 YOM admitted to TCU 03/18 s/p hospitalization at [facility] for ileus. Of note, patient was previously admitted to TCU prior to hospitalization s/p hemiarthroplasty prior to admission to [facility]. While admitted to hospital, patient tested positive for COVID, in isolation until 03/24/23. Admitted to TCU for rehabilitation and strengthening prior to discharge home where he resides with his . Objective: Allergies indomethacin [From Indocin] Adverse Reaction (Intermediate, Verified 03/04/23 20:42) Itching indomethacin sodium [From Indocin] Adverse Reaction (Intermediate, Verified 03/04/23 20:42) Itching oxycodone HCl [From Percocet] Adverse Reaction (Intermediate, Verified 03/04/23 20:42) Itching Current Medications Generic Name Dose Route Start Last Admin Trade Name Freq PRN Reason Stop Dose Admin Acetaminophen 1,000 mg 03/18/23 22:00 03/20/23 13:24 Acetaminophen 500 Mg Tablet PO 1,000 mg Q8 SWATHI Administration Albuterol Sulfate 2.5 mg 03/18/23 15:10 Albuterol 2.5 Mg/3 Ml Vial.Neb. INHALATION Q6H PRN SHORTNESS OF BREATH/WHEEZING Aspirin 81 mg 03/18/23 22:00 03/20/23 07:47 Aspirin E.C. 81 Mg Tablet PO 04/01/23 22:01 81 mg BID SWATHI Administration Calamine/Phenol 1 applic 03/18/23 22:00 03/20/23 07:54 Menthol/Lanolin/Calamine/Znox 113 Gm Tube TOPICAL 1 applic BID SWATHI Administration Protocol Chlorthalidone 25 mg 03/19/23 10:00 03/20/23 07:48 Chlorthalidone 50 Mg Tablet PO 25 mg DAILY SWATHI Administration Dexamethasone 6 mg 03/19/23 08:00 03/20/23 07:47 Dexamethasone 4 Mg Tablet PO 03/23/23 08:01 6 mg DAILYCM SWATHI Administration Epinephrine HCl 0.3 mg 03/18/23 15:10 Epi Pen (Equiv) 0.3 Mg Syringe IM X1 PRN ANAPHYLAXIS Famotidine 40 mg 03/19/23 10:00 03/20/23 07:47 Famotidine 20 Mg Tablet PO 40 mg DAILY SWATHI Administration Ferrous Sulfate 325 mg 03/19/23 12:00 03/20/23 13:24 Ferrous Sulfate 325 Mg Tablet PO 325 mg LUNCH SWATHI Administration Fluticasone Propionate 2 spray 03/19/23 10:00 03/20/23 07:55 Fluticasone 0.05% 1 [place] Nasal.Sry NASAL 2 spray DAILY SWATHI Administration Levothyroxine Sodium 75 mcg 03/19/23 06:00 03/20/23 05:44 Levothyroxine 75 Mcg Tablet PO 75 mcg DAILY@0600 SWATHI Administration Magnesium Citrate 300 ml 03/18/23 20:07 Magnesium Citrate 300 Ml PO DAILY PRN CONSTIPATION Miconazole Nitrate 1 applic 03/18/23 22:00 03/20/23 07:55 Miconazole Nitrate 43 Gm Bottle TOPICAL 1 applic BID SWATHI Administration Protocol Montelukast Sodium 10 mg 03/18/23 22:00 03/19/23 21:22 Montelukast 10 Mg Tablet PO 10 mg QHS SWATHI Administration Multi-Ingredient Cream 1 applic 03/18/23 22:00 03/19/23 21:34 Petrolatum 33% Tube TOPICAL 1 applic QHS [facility] Administration Protocol Multivitamins 1 tablet 03/19/23 08:00 03/20/23 07:48 Multivitamins,Therapeutic Tablet PO 1 tablet BREAKFAST SWATHI Administration Nitroglycerin 0.4 mg 03/18/23 15:40 Nitroglycerin (Inpatient Use) 0.4 Mg Tab.Subl SL Q5M PRN CHEST PAIN Polyethylene Glycol 17 gm 03/19/23 10:00 03/20/23 07:48 Polyethylene Glycol 3350 17 Gm Packet PO 17 gm DAILY SWATHI Administration Fluticasone/Salmeterol 1 puff 03/18/23 22:00 03/20/23 07:55 Fluticasone/Salmeterol 232-14 Inhaler INHALATION 1 puff BID SWATHI Administration Senna/Docusate Sodium 2 tablet 03/18/23 22:00 03/20/23 07:47 Senna/Docusate Sodium 1 Tablet PO 2 tablet BID SWATHI Administration Sertraline HCl 100 mg 03/19/23 10:00 03/20/23 07:47 Sertraline 100 Mg Tablet PO 100 mg DAILY SWATHI Administration Sodium Chloride 10 - 40 ml 03/18/23 15:52 03/19/23 08:46 0.9% Saline Lock 10 Ml Syringe IV 10 ml UD PRN Administration SALINE FLUSH Throat Lozenges 2 lozenge 10/31/23 15:10 Benzocaine/Menthol 1 Lozenge MUCOUS MEM Q2H PRN PRN SORE THROAT Umeclidinium [place] 1 puff 03/19/23 10:00 03/20/23 07:56 Umeclidinium [place] Inhaler INHALATION 1 puff DAILY SWATHI Administration Problem List (Updated 03/19/23 @ 00:02 by Background Giorgio) History of right hip hemiarthroplasty (Acute) Fecal impaction of colon (Acute) COPD (chronic obstructive pulmonary disease) (Chronic) Iron deficiency anemia (Acute) Hypertension (Chronic) Depression (Acute) Debility (Acute) Closed right hip fracture (Acute) Asthma (Chronic) Hypothyroidism (Chronic) Vital Signs Temp Pulse Resp BP Pulse Ox O2 Del Method 96.3 F L 94 18 96/53 L 96 Room Air 03/19/23 09:07 03/20/23 06:26 03/20/23 06:26 03/19/23 09:07 03/20/23 06:26 03/20/23 06:26 Oxygen Delivery Method Room Air Weight: 72.257 kg Body Mass Index (BMI) 24.2 Sodium 136 mmol/L (136-145) 03/19/23 05:46 Potassium 3.5 mmol/L (3.5-5.1) 03/19/23 05:46 Chloride 104 mmol/L (98-107) 03/19/23 05:46 Carbon Dioxide 26.0 mmol/L (21.0-32.0) 03/19/23 05:46 Anion Gap 6 (5-15) 03/19/23 05:46 BUN 19 mg/dL (7-18) H 03/19/23 05:46 Creatinine 1.03 mg/dL (0.70-1.30) 03/19/23 05:46 Est GFR (MDRD) Af Amer 88 mL/min (>60) 03/19/23 05:46 Est GFR (MDRD) Non-Af 73 mL/min (>60) 03/19/23 05:46 BUN/Creatinine Ratio 18.4 RATIO (10-20) 03/19/23 05:46 Glucose 89 mg/dL (74-106) 03/19/23 05:46 Assessment/Plan 1. Pain: acetaminophen 1000 mg PO Q6H PRN pain (1-5), oxycodone 5 mg PO Q4H PRN pain (6-10). The patient has used 2 doses of PRN oxycodone so far this admission. Please continue to monitor pain levels, for PRN medication usage, LFTs (AST/ALT = 46/50 U/L on 03/04/23), for constipation, drowsiness/dizziness, for syncope/falls/ataxia, and fro respiratory depression. The patient's pain appears to be well controlled with PRN oxycodone. 2. Bowel: polyethylene glycol 17 grams PO daily, senna/docusate 2 tablets PO BID. The patient's last bowel movement was on 03/09/23. Please continue to monitor for diarrhea, constipation and PRN medication usage. 3. DVT prophylaxis: rivaroxaban 10 mg PO daily through 03/24/23 followed by aspirin 81 mg PO BID through 04/07/23. Please continue to monitor for s/s of a DVT such as erythema/swelling/pain in the lower extremity as well as for s/s of bleeding/excessive bruising, hemoglobin levels (Hgb = 9.1 g/dL on 03/11/23), platelet counts (PLT = 216 K/mm3 on 03/11/23), and for GI distress with aspirin administration. If GI distress occurs with aspirin administration please consider administering with food. 4. Diverticulitis/colitis: piperacillin/tazobactam 3.375 grams Q8H through 03/17/23. Please continue to monitor for resolution of diverticulitis/colitis, for abdominal pain, for fevers (recent temps = 97.8-99 F), for chills, white blood cell count (WBC = 4.8 K/mm3 on 03/11/23), for diarrhea, and renal function (serum creatinine = 1.45 mg/dL with creatinine clearance ~ 33 mL/min on 03/10/23). 5. COPD/Asthma: albuterol inhaler 2 puffs Q4H PRN shortness of breath, fluticasone/salmeterol 2 puffs inhalation BID, umeclidinium 1 puff daily, albuterol nebulization 2.5 mg Q6H PRN shortness of breath, montelukast 10 mg PO daily.. The patient has not required any PRN breathing treatment so far this admission. Please continue to monitor for s/s of a COPD exacerbation such as increase shortness of breath, cough, and increase sputum production, for PRN medication usage, respiratory rate (recent range = 16-20 breaths/min), O2 saturation (recent range = 94-98%), for heart palpitations, heart rate (recent range = 79-97 beats/min), for oral thrush, for s/s of pneumonia, for neuropsychiatric disturbances, insomnia, for anticholinergic side effects such as dry mouth, dry eyes, urinary retention, constipation, and delirium. To help avoid oral thrush, please consider rinsing out the patient's mouth after each administration of fluticasone/salmeterol. 6. Hypertension: chlorthalidone 25 mg PO daily. Please continue to monitor blood pressures (recent range = 105-119/60-69 mmHg), renal function (serum creatinine = 1.45 mg/dL with creatinine clearance ~ 33 mL/min on 03/10/23), potassium levels (K = 3.6 mmol/L on 03/11/23), sodium levels (Na = 132 mmol/L on 03/11/23), and for s/s of gout flares. The patient's blood pressures appear controlled on chlorthalidone. 7. GERD: famotidine 40 mg PO daily. Please continue to monitor for s/s of GERD, renal function (serum creatinine = 1.45 mg/dL with creatinine clearance ~ 33 mL/min on 03/10/23), platelet count (PLT = 216 K/mm3 on 03/11/23), and for delirium. 8. Hypothyroidism: levothyroxine 75 mcg PO daily. Please continue to monitor for s/s of hypo/hyperthyroidism, and thyroid levels (TSH = 7=.81 uIU/mL with T4 = 1.33 ng/dL on 02/11/23). 9. Iron deficiency anemia: ferrous sulfate 325 mg PO daily. Please continue to monitor for s/s of anemia, hemoglobin levels (Hgb = 9.1 g/dL on 03/11/23), iron levels (iron = 83 ug/dL on 12/24/22), for constipation and discolored stool. 10. Allergic rhinitis: fluticasone 0.05% nasal spray 2 sprays in each nostril daily. Please continue to monitor for allergy symptoms, headache, and nose bleeds. 11. Coronary artery disease: nitroglycerin 0.4 mg SL Q5M prn chest pain. The patient has not required any PRN doses of nitroglycerin this admission. Please continue to monitor for chest pain, and PRN medication usage. 12. Gas: simethicone 80 mg PO PCHS. Please continue to monitor for abdominal bloating/discomfort. 13. Anaphylaxis: epinephrine pen 0.3 mg IM PRN anaphylaxis. The patient has not required the use of an epinephrine injection yet this admission. Please continue to monitor for s/s of an allergic reaction such as rash, hives, shortness of breath, heart palpitations and throat/tongue swelling. 14. Nutrition: ensure plus high protein 120 mL PO 4x per day, multivitamin PO daily. Please continue to monitor overall nutritional status. 15. Skin irritation/tinea corporis: calmoseptine 1 application topically BID, p etrolatum 33% 1 application topically BID, nystatin/triamcinolone 1 application topically BID PRN rash. Please continue to monitor for resolution of tinea corporis, and for skin irritation and integrity. Assessment/Plan for indications treated with psychotropic medications: 1. Depression: sertraline 100 mg PO daily. Please see provider note regarding stable chronic use GDR not recommended. Please continue to monitor for s/s of depression, for SI, sodium levels (Na = 132 mmol/L on 03/11/23), for diarrhea, dizziness, and for s/s of serotonin syndrome. Medical chart and medication regimen reviewed. The following medication irregularities or issues were identified: N/A
[2023-03-20 15:15] VITALS: BP 103/63; PULSE 102; RESP 19; TEMP 35.5; O2SAT 92
--- NOTE | 2023-03-20 15:23 | PHA.CONS_ITS ---
TCU RX Drug Regimen Review Subjective/Objective Subjective/Objective: Subjective: 82 YOM admitted to TCU s/p hospitalization at [facility] secondary to an ileus. Patient was previously admitted to TCU s/p hospitalization for a hemiarthroplasty of the right hip. Hospitalization complicated by COVID, pt in p recautions until 03/24/23. Admitted to TCU for strengthening and rehabilitation prior to discharge home where he resides with his . Objective: Allergies indomethacin [From Indocin] Adverse Reaction (Intermediate, Verified 03/04/23 20:42) Itching indomethacin sodium [From Indocin] Adverse Reaction (Intermediate, Verified 03/04/23 20:42) Itching oxycodone HCl [From Percocet] Adverse Reaction (Intermediate, Verified 03/04/23 20:42) Itching Current Medications Generic Name Dose Route Start Last Admin Trade Name Freq PRN Reason Stop Dose Admin Acetaminophen 1,000 mg 03/18/23 22:00 03/20/23 13:24 Acetaminophen 500 Mg Tablet PO 1,000 mg Q8 SWATHI Administration Albuterol Sulfate 2.5 mg 03/18/23 15:10 Albuterol 2.5 Mg/3 Ml Vial.Neb. INHALATION Q6H PRN SHORTNESS OF BREATH/WHEEZING Aspirin 81 mg 03/18/23 22:00 03/20/23 07:47 Aspirin E.C. 81 Mg Tablet PO 04/01/23 22:01 81 mg BID SWATHI Administration Calamine/Phenol 1 applic 03/18/23 22:00 03/20/23 07:54 Menthol/Lanolin/Calamine/Znox 113 Gm Tube TOPICAL 1 applic BID SWATHI Administration Protocol Chlorthalidone 25 mg 03/19/23 10:00 03/20/23 07:48 Chlorthalidone 50 Mg Tablet PO 25 mg DAILY SWATHI Administration Dexamethasone 6 mg 03/19/23 08:00 03/20/23 07:47 Dexamethasone 4 Mg Tablet PO 03/23/23 08:01 6 mg DAILYCM SWATHI Administration Epinephrine HCl 0.3 mg 03/18/23 15:10 Epi Pen (Equiv) 0.3 Mg Syringe IM X1 PRN ANAPHYLAXIS Famotidine 40 mg 03/19/23 10:00 03/20/23 07:47 Famotidine 20 Mg Tablet PO 40 mg DAILY SWATHI Administration Ferrous Sulfate 325 mg 03/19/23 12:00 03/20/23 13:24 Ferrous Sulfate 325 Mg Tablet PO 325 mg LUNCH SWATHI Administration Fluticasone Propionate 2 spray 03/19/23 10:00 03/20/23 07:55 Fluticasone 0.05% 1 [place] Nasal.Sry NASAL 2 spray DAILY SWATHI Administration Levothyroxine Sodium 75 mcg 03/19/23 06:00 03/20/23 05:44 Levothyroxine 75 Mcg Tablet PO 75 mcg DAILY@0600 SWATHI Administration Magnesium Citrate 300 ml 03/18/23 20:07 Magnesium Citrate 300 Ml PO DAILY PRN CONSTIPATION Miconazole Nitrate 1 applic 03/18/23 22:00 03/20/23 07:55 Miconazole Nitrate 43 Gm Bottle TOPICAL 1 applic BID SWATHI Administration Protocol Montelukast Sodium 10 mg 03/18/23 22:00 03/19/23 21:22 Montelukast 10 Mg Tablet PO 10 mg QHS SWATHI Administration Multi-Ingredient Cream 1 applic 03/18/23 22:00 03/19/23 21:34 Petrolatum 33% Tube TOPICAL 1 applic QHS [facility] Administration Protocol Multivitamins 1 tablet 03/19/23 08:00 03/20/23 07:48 Multivitamins,Therapeutic Tablet PO 1 tablet BREAKFAST SWATHI Administration Nitroglycerin 0.4 mg 03/18/23 15:40 Nitroglycerin (Inpatient Use) 0.4 Mg Tab.Subl SL Q5M PRN CHEST PAIN Polyethylene Glycol 17 gm 03/19/23 10:00 03/20/23 07:48 Polyethylene Glycol 3350 17 Gm Packet PO 17 gm DAILY SWATHI Administration Fluticasone/Salmeterol 1 puff 03/18/23 22:00 03/20/23 07:55 Fluticasone/Salmeterol 232-14 Inhaler INHALATION 1 puff BID SWATHI Administration Senna/Docusate Sodium 2 tablet 03/18/23 22:00 03/20/23 07:47 Senna/Docusate Sodium 1 Tablet PO 2 tablet BID SWATHI Administration Sertraline HCl 100 mg 03/19/23 10:00 03/20/23 07:47 Sertraline 100 Mg Tablet PO 100 mg DAILY SWATHI Administration Sodium Chloride 10 - 40 ml 03/18/23 15:52 03/19/23 08:46 0.9% Saline Lock 10 Ml Syringe IV 10 ml UD PRN Administration SALINE FLUSH Throat Lozenges 2 lozenge 03/18/23 15:10 Benzocaine/Menthol 1 Lozenge MUCOUS MEM Q2H PRN PRN SORE THROAT Umeclidinium [place] 1 puff 03/19/23 10:00 03/20/23 07:56 Umeclidinium [place] Inhaler INHALATION 1 puff DAILY SWATHI Administration Problem List History of right hip hemiarthroplasty (Acute) Fecal impaction of colon (Acute) COPD (chronic obstructive pulmonary disease) (Chronic) Iron deficiency anemia (Acute) Hypertension (Chronic) Depression (Acute) Debility (Acute) Closed right hip fracture (Acute) Asthma (Chronic) Hypothyroidism (Chronic) Vital Signs Temp Pulse Resp BP Pulse Ox O2 Del Method 96 F L 102 H 19 H 103/63 92 Room Air 03/20/23 15:15 03/20/23 15:15 03/20/23 15:15 03/20/23 15:15 03/20/23 15:15 03/20/23 15:15 Oxygen Delivery Method Room Air Weight: 72.257 kg Body Mass Index (BMI) 24.2 Sodium 136 mmol/L (136-145) 03/19/23 05:46 Potassium 3.5 mmol/L (3.5-5.1) 03/19/23 05:46 Chloride 104 mmol/L (98-107) 03/19/23 05:46 Carbon Dioxide 26.0 mmol/L (21.0-32.0) 03/19/23 05:46 Anion Gap 6 (5-15) 03/19/23 05:46 BUN 19 mg/dL (7-18) H 03/19/23 05:46 Creatinine 1.03 mg/dL (0.70-1.30) 03/19/23 05:46 Est GFR (MDRD) Af Amer 88 mL/min (>60) 03/19/23 05:46 Est GFR (MDRD) Non-Af 73 mL/min (>60) 03/19/23 05:46 BUN/Creatinine Ratio 18.4 RATIO (10-20) 03/19/23 05:46 Glucose 89 mg/dL (74-106) 03/19/23 05:46 Assessment/Plan: 1. Pain: acetaminophen 1000 mg PO Q8h. Please continue to monitor pain levels, LFTs (AST/ALT = 46/50 U/L on 03/04/23). The patient's pain appears to be well controlled at this time. 2. Bowel: polyethylene glycol 17 grams PO daily, senna/docusate 2 tablets PO BID, magnesium citrate 300mL PO Daily PRN. The patient's last bowel movement was on 03/17/23. Please continue to monitor for diarrhea, constipation and PRN medication usage. 3. DVT prophylaxis: aspirin 81 mg PO BID through 04/01/23. Please continue to monitor for s/s of a DVT such as erythema/swelling/pain in the lower extremity as well as for s/s of bleeding/excessive bruising, hemoglobin levels (Hgb = 8.9 g/dL on 03/19/23), platelet counts (PLT = 347 K/mm3 on 03/19/23), and for GI distress with aspirin administration. If GI distress occurs with aspirin administration please consider administering with food. 4. COVID-19: Decadron 6mg PO Daily thru 03/23/23, cepacol lozenge q2h PRN cough. Please continue to monitor for insomnia, GI upset, maintain COVID-19 isolation precautions. 5. COPD/Asthma: albuterol nebulization Q6H PRN shortness of breath, fluticasone/salmeterol 2 puffs inhalation BID, umeclidinium 1 puff daily, montelukast 10 mg PO daily.. The patient has not required any PRN breathing treatment so far this admission. Please continue to monitor for s/s of a COPD exacerbation such as increase shortness of breath, cough, and increase sputum production, for PRN medication usage, respiratory rate (recent range = 16-20 breaths/min), O2 saturation (recent range = 94-98%), for heart palpitations, heart rate (recent range = 79-97 beats/min), for oral thrush, for s/s of pneumonia, for neuropsychiatric disturbances, insomnia, for anticholinergic side effects such as dry mouth, dry eyes, urinary retention, constipation, and delirium. To help avoid oral thrush, please consider rinsing out the patient's mouth after each administration of fluticasone/salmeterol. 6. Hypertension: chlorthalidone 25 mg PO daily. Please continue to monitor blood pressures (recent range = 105-119/60-69 mmHg), renal function, potassium levels (K = 3.5 mmol/L on 03/19/23), sodium levels (Na = 136 mmol/L on 03/19/23), and for s/s of gout flares. The patient's blood pressures appear controlled on chlorthalidone. 7. GERD: famotidine 40 mg PO daily. Please continue to monitor for s/s of GERD, renal function, platelet count, and for delirium. Please encourage non- pharmacologic treatment also to help minimize GERD flare-ups. 8. Hypothyroidism: levothyroxine 75 mcg PO daily. Please continue to monitor for s/s of hypo/hyperthyroidism, and thyroid levels (TSH = 7=.81 uIU/mL with T4 = 1. 33 ng/dL on 02/11/23). 9. Iron deficiency anemia: ferrous sulfate 325 mg PO daily. Please continue to monitor for s/s of anemia, hemoglobin levels, iron levels (iron = 83 ug/dL on 12/24/22), for constipation and discolored stool. 10. Allergic rhinitis: fluticasone 0.05% nasal spray 2 sprays in each nostril daily. Please continue to monitor for allergy symptoms, headache, and nose bleeds. 11. Coronary artery disease: nitroglycerin 0.4 mg SL Q5M prn chest pain. The patient has not required any PRN doses of nitroglycerin this admission. Please continue to monitor for chest pain, and PRN medication usage. 12. Gas: simethicone 80 mg PO PCHS. Please continue to monitor for abdominal bloating/discomfort. 13. Anaphylaxis: epinephrine pen 0.3 mg IM PRN anaphylaxis. The patient has not required the use of an epinephrine injection yet this admission. Please continue to monitor for s/s of an allergic reaction such as rash, hives, shortness of breath, heart palpitations and throat/tongue swelling. 14. Nutrition: multivitamin PO daily. Please continue to monitor overall nutritional status. 15. Skin irritation/tinea corporis: calmoseptine 1 application topically BID, petrolatum 33% 1 application topically BID, miconazole topically BID. Please continue to monitor for resolution of tinea corporis, and for skin irritation and integrity. Assessment/Plan for indications treated with psychotropic medications: 1. Depression: sertraline 100 mg PO daily. Please see provider note regarding stable chronic use GDR not recommended. Please continue to monitor for s/s of depression, for SI, sodium levels, for diarrhea, dizziness, and for s/s of serotonin syndrome. Medical chart and medication regimen reviewed. The following medication irregularities or issues were identified: N/A Date Date of Note:: 03/20/23
--- NOTE | 2023-03-20 16:38 | CASEMGMT ---
Social Work SW spoke with pt several times today. Pt is in much better spirits, mood has improved and pt is optimistic about discharging home. SW discussed pt is in-room isolation until 03/25. POC mtg scheduled 03/26, and if pt and family is agreeable to DC home, SW can set DC date for shortly after that date. Pt is agreeable with plan and requesting skilled HHC, FWW and 3-in-1 commode. SW to coordinate at DC. Pt appreciative. SW will continue to follow. Zoraida Michael, RESIDENTIAL DOOR INSTALLER BARREL INSPECTOR TIGHT
[2023-03-20] MEDS: Montelukast 10 MG Tablet PO (22:46)
[2023-03-20] MEDS: Petrolatum 33% Tube 1 APPLIC TOPICAL (22:53)
[2023-03-21] MEDS: Acetaminophen 500 MG Tablet 1000 MG PO ×3 (06:57→21:54)
[2023-03-21] MEDS: Levothyroxine 75 MCG Tablet PO (06:58)
--- NOTE | 2023-03-21 09:08 | NURSING ---
Artist'S Model Note; Activity Asset: Markell Callahan has returned to TCU for continued therapy. He remains independent in his choice of daily Activities. His family will visit and he welcomes visit from the Street Supervisor and therapy dog when available. He will watch tv, read the paper but prefers to rest when not with therapy. Staff will continue to remind him of daily activities and offer him in room activities and respect hi right to say no.
[2023-03-21 09:50] VITALS: BP 102/62; PULSE 77; RESP 17; TEMP 36.4; O2SAT 98
[2023-03-21] MEDS: dexAMETHasone 4 MG Tablet 6 MG PO (09:57)
[2023-03-21] MEDS: Multivitamins,Therapeutic Tablet 1 TABLET PO (09:58)
[2023-03-21] MEDS: Fluticasone 0.05% 1 SPRAY NASAL.SRY 2 SPRAY NASAL (09:58)
[2023-03-21] MEDS: Aspirin E.C. 81 MG Tablet PO ×2 (09:58→21:53)
[2023-03-21] MEDS: Fluticasone/Salmeterol 232-14 Inhaler 1 PUFF INHALATION ×2 (09:58→21:59)
[2023-03-21] MEDS: Miconazole Nitrate 43 GM Bottle 1 APPLIC TOPICAL ×2 (09:58→21:59)
[2023-03-21] MEDS: Menthol/Lanolin/Calamine/Znox 113 GM Tube 1 APPLIC TOPICAL ×2 (09:58→21:58)
[2023-03-21] MEDS: Chlorthalidone 50 MG Tablet 25 MG PO (09:59)
[2023-03-21] MEDS: Umeclidinium Bromide Inhaler 1 PUFF INHALATION (09:59)
[2023-03-21] MEDS: Polyethylene Glycol 3350 17 GM PACKET PO (10:00)
[2023-03-21] MEDS: Senna/Docusate Sodium 1 Tablet 2 TABLET PO ×2 (10:00→21:54)
[2023-03-21] MEDS: Famotidine 20 MG Tablet 40 MG PO (10:00)
[2023-03-21] MEDS: Sertraline 100 MG Tablet PO (10:01)
[2023-03-21] MEDS: Ferrous Sulfate 325 MG Tablet PO (13:57)
[2023-03-21] MEDS: 0.9% Saline Lock 10 ML Syringe IV (18:11)
--- NOTE | 2023-03-21 19:25 | NURSING ---
Removed mepilex due to soiling. Wound cleansed with soap and water, rinsed well, patted dry. New mepilex applied. Pt tolerated well.
[2023-03-21 21:00] VITALS: PULSE 88; RESP 16; O2SAT 94
[2023-03-21] MEDS: Montelukast 10 MG Tablet PO (21:54)
[2023-03-21] MEDS: Petrolatum 33% Tube 1 APPLIC TOPICAL (22:00)
[2023-03-22 05:45] VITALS: PULSE 70; RESP 18; O2SAT 98
[2023-03-22] MEDS: Acetaminophen 500 MG Tablet 1000 MG PO ×3 (05:56→22:55)
[2023-03-22] MEDS: Levothyroxine 75 MCG Tablet PO (05:56)
[2023-03-22] MEDS: Sertraline 100 MG Tablet PO (08:12)
[2023-03-22] MEDS: Senna/Docusate Sodium 1 Tablet 2 TABLET PO (08:12)
[2023-03-22] MEDS: dexAMETHasone 4 MG Tablet 6 MG PO (08:13)
[2023-03-22] MEDS: Chlorthalidone 50 MG Tablet 25 MG PO (08:13)
[2023-03-22] MEDS: Aspirin E.C. 81 MG Tablet PO ×2 (08:13→22:56)
[2023-03-22] MEDS: Famotidine 20 MG Tablet 40 MG PO (08:13)
[2023-03-22] MEDS: Multivitamins,Therapeutic Tablet 1 TABLET PO (08:14)
[2023-03-22] MEDS: Fluticasone/Salmeterol 232-14 Inhaler 1 PUFF INHALATION ×2 (08:28→23:03)
[2023-03-22] MEDS: Fluticasone 0.05% 1 SPRAY NASAL.SRY 2 SPRAY NASAL (08:28)
[2023-03-22] MEDS: Menthol/Lanolin/Calamine/Znox 113 GM Tube 1 APPLIC TOPICAL ×2 (08:29→23:02)
[2023-03-22] MEDS: Miconazole Nitrate 43 GM Bottle 1 APPLIC TOPICAL ×2 (08:30→23:01)
[2023-03-22] MEDS: Umeclidinium Bromide Inhaler 1 PUFF INHALATION (08:49)
[2023-03-22] MEDS: Ferrous Sulfate 325 MG Tablet PO (13:02)
[2023-03-22 14:12] VITALS: BP 91/63; PULSE 79; RESP 16; TEMP 37.1; O2SAT 98
--- NOTE | 2023-03-22 18:26 | NURSING ---
Pt noted to c/o diarrhea d/t laxative usage. Patient requested Senna BID to be only 1 tab vs 2 tablets. Contacted MD- agreed to change order. Patient Mepilex also removed d/t patient having pain w/ this and also noted that Calmoseptine cream was more beneficial/
[2023-03-22] MEDS: Senna/Docusate Sodium 1 Tablet PO (22:56)
[2023-03-22] MEDS: Montelukast 10 MG Tablet PO (22:57)
[2023-03-22] MEDS: Petrolatum 33% Tube 1 APPLIC TOPICAL (23:02)
[2023-03-23] MEDS: Levothyroxine 75 MCG Tablet PO (06:20)
[2023-03-23] MEDS: Acetaminophen 500 MG Tablet 1000 MG PO ×3 (06:20→22:07)
[2023-03-23] MEDS: dexAMETHasone 4 MG Tablet 6 MG PO (08:08)
[2023-03-23] MEDS: Multivitamins,Therapeutic Tablet 1 TABLET PO (08:09)
[2023-03-23] MEDS: Aspirin E.C. 81 MG Tablet PO ×2 (08:10→22:06)
[2023-03-23] MEDS: Menthol/Lanolin/Calamine/Znox 113 GM Tube 1 APPLIC TOPICAL ×2 (08:10→22:19)
[2023-03-23] MEDS: Polyethylene Glycol 3350 17 GM PACKET PO (08:11)
[2023-03-23] MEDS: Famotidine 20 MG Tablet 40 MG PO (08:11)
[2023-03-23] MEDS: Senna/Docusate Sodium 1 Tablet PO (08:11)
[2023-03-23] MEDS: Chlorthalidone 50 MG Tablet 25 MG PO (08:12)
[2023-03-23] MEDS: Sertraline 100 MG Tablet PO (08:12)
[2023-03-23] MEDS: Miconazole Nitrate 43 GM Bottle 1 APPLIC TOPICAL ×2 (08:13→22:19)
[2023-03-23] MEDS: Fluticasone 0.05% 1 SPRAY NASAL.SRY 2 SPRAY NASAL (08:24)
[2023-03-23] MEDS: Fluticasone/Salmeterol 232-14 Inhaler 1 PUFF INHALATION ×2 (08:25→22:23)
[2023-03-23] MEDS: Umeclidinium Bromide Inhaler 1 PUFF INHALATION (08:25)
[2023-03-23] MEDS: Ferrous Sulfate 325 MG Tablet PO (12:46)
[2023-03-23 15:14] VITALS: BP 100/69; PULSE 84; RESP 16; TEMP 36.6; O2SAT 98
[2023-03-23 20:00] VITALS: PULSE 83; RESP 16; O2SAT 96
[2023-03-23] MEDS: Montelukast 10 MG Tablet PO (22:07)
[2023-03-23] MEDS: Petrolatum 33% Tube 1 APPLIC TOPICAL (22:18)
[2023-03-24] MEDS: Acetaminophen 500 MG Tablet 1000 MG PO (05:47)
[2023-03-24] MEDS: Levothyroxine 75 MCG Tablet PO (05:47)
[2023-03-24] MEDS: Chlorthalidone 50 MG Tablet 25 MG PO (09:39)
[2023-03-24] MEDS: Aspirin E.C. 81 MG Tablet PO ×2 (09:39→20:20)
[2023-03-24] MEDS: Polyethylene Glycol 3350 17 GM PACKET PO (09:39)
[2023-03-24] MEDS: Multivitamins,Therapeutic Tablet 1 TABLET PO (09:39)
[2023-03-24] MEDS: Senna/Docusate Sodium 1 Tablet PO ×2 (09:40→20:21)
[2023-03-24] MEDS: Sertraline 100 MG Tablet PO (09:40)
[2023-03-24] MEDS: Famotidine 20 MG Tablet 40 MG PO (09:40)
[2023-03-24] MEDS: Miconazole Nitrate 43 GM Bottle 1 APPLIC TOPICAL ×2 (09:41→20:27)
[2023-03-24] MEDS: Menthol/Lanolin/Calamine/Znox 113 GM Tube 1 APPLIC TOPICAL ×2 (09:41→20:28)
[2023-03-24] MEDS: Umeclidinium Bromide Inhaler 1 PUFF INHALATION (09:42)
[2023-03-24] MEDS: Fluticasone 0.05% 1 SPRAY NASAL.SRY 2 SPRAY NASAL (09:42)
[2023-03-24] MEDS: Fluticasone/Salmeterol 232-14 Inhaler 1 PUFF INHALATION ×2 (09:42→20:26)
[2023-03-24 10:27] VITALS: PULSE 76; RESP 16; O2SAT 95
[2023-03-24 10:58] VITALS: BP 140/90; PULSE 81; RESP 16; TEMP 36.4; O2SAT 95
[2023-03-24] MEDS: Ferrous Sulfate 325 MG Tablet PO (11:52)
[2023-03-24] MEDS: Montelukast 10 MG Tablet PO (20:21)
[2023-03-24] MEDS: Petrolatum 33% Tube 1 APPLIC TOPICAL (20:27)
[2023-03-25] MEDS: Levothyroxine 75 MCG Tablet PO (05:20)
[2023-03-25 09:30] VITALS: BP 98/59; PULSE 98; RESP 17; TEMP 36.4; O2SAT 96
[2023-03-25] MEDS: Miconazole Nitrate 43 GM Bottle 1 APPLIC TOPICAL ×2 (09:34→21:00)
[2023-03-25] MEDS: Menthol/Lanolin/Calamine/Znox 113 GM Tube 1 APPLIC TOPICAL ×2 (09:34→21:01)
[2023-03-25] MEDS: Multivitamins,Therapeutic Tablet 1 TABLET PO (09:34)
[2023-03-25] MEDS: Fluticasone 0.05% 1 SPRAY NASAL.SRY 2 SPRAY NASAL (09:35)
[2023-03-25] MEDS: Umeclidinium Bromide Inhaler 1 PUFF INHALATION (09:35)
[2023-03-25] MEDS: Fluticasone/Salmeterol 232-14 Inhaler 1 PUFF INHALATION ×2 (09:35→21:07)
[2023-03-25] MEDS: Chlorthalidone 50 MG Tablet 25 MG PO (09:35)
[2023-03-25] MEDS: Aspirin E.C. 81 MG Tablet PO ×2 (09:35→21:05)
[2023-03-25] MEDS: Sertraline 100 MG Tablet PO (09:36)
[2023-03-25] MEDS: Famotidine 20 MG Tablet 40 MG PO (09:36)
[2023-03-25] MEDS: Senna/Docusate Sodium 1 Tablet PO ×2 (09:36→21:05)
[2023-03-25 10:22] VITALS: BMI 23.1
--- NOTE | 2023-03-25 11:10 | CASEMGMT ---
Social Work BIMS () and PHQ-2 () completed for MDS assessment. Zoarida Michael MSW GRAIN ELEVATOR CLERK
[2023-03-25] MEDS: Ferrous Sulfate 325 MG Tablet PO (12:35)
[2023-03-25] MEDS: Petrolatum 33% Tube 1 APPLIC TOPICAL (21:00)
[2023-03-25] MEDS: Montelukast 10 MG Tablet PO (21:05)
[2023-03-26] MEDS: Levothyroxine 75 MCG Tablet PO (05:51)
[2023-03-26 05:57] LABS: Absolute Lymphocyte Count 1.27 X10^3/uL (0.83-4.51); Absolute Neutrophil Count 8.3 X10^3/uL (2.0-7.7); Basophil# 0.03 X10^3/uL; Basophil% 0.3 % (0-1); Eosinophil# 0.17 X10^3/uL; Eosinophils% 1.6 % (0-5); Hemoglobin 10.6 g/dL (13.0-16.5); Lymphocyte # 1.27 X10^3/ul (0.83-4.51); Lymphocyte % 11.6 % (19-41); Mean Corp Hgb Conc 31.2 g/dL (32-36); Mean Corpuscular Volume 89.9 fL (80-94); Mean Platelet Vol. 9.1 fl (6.2-12.0); Monocyte# 0.97 X10^3/uL; Monocyte% 8.9 % (0-10); NRBC Flagged by Analyzer 0 % (0-5); Neutrophil # 8.31 X10^3/uL (2.7-7.7); Neutrophil % 75.9 % (47-70); Platelet Count 282 K/mm3 (150-450); RBC Distribution Width CV 16.8 % (11.6-14.6); RBC Distribution Width SD 54.4 fl (35.1-43.9); Red Blood Count 3.78 M/mm3 (4.6-6.2); White Blood Count 10.9 K/mm3 (4.4-11.0)
[2023-03-26 07:00] LABS: Anion Gap 5 (5-15); BUN 29 mg/dL (7-18); BUN/Creat Ratio 19.9 RATIO (10-20); Calcium,Total 8.6 mg/dL (8.5-10.1); Chloride 99 mmol/L (98-107); Creatinine, Serum 1.46 mg/dL (0.70-1.30); EST Glomerular Filtration Rate 49 mL/min (>60); Est Glom Filt Rate - Afr Amer 59 mL/min (>60); Estimated Creatinine Clearance 36.44 ml/min; Glucose 122 mg/dL (74-106); Potassium 4.2 mmol/L (3.5-5.1); Sodium Level 134 mmol/L (136-145)
--- NOTE | 2023-03-26 07:06 | NURSING ---
Patient agreeable to room change, contacted inside outside sales representative Jacey Mari also agreeable and expresses thanks for update.
--- NOTE | 2023-03-26 08:55 | NURSING ---
Firmware Manager Note; MDS for 03/25/2023 Complete
[2023-03-26] MEDS: Aspirin E.C. 81 MG Tablet PO ×2 (09:19→22:43)
[2023-03-26] MEDS: Multivitamins,Therapeutic Tablet 1 TABLET PO (09:19)
[2023-03-26] MEDS: Senna/Docusate Sodium 1 Tablet PO ×2 (09:20→22:44)
[2023-03-26] MEDS: Famotidine 20 MG Tablet 40 MG PO (09:20)
[2023-03-26] MEDS: Sertraline 100 MG Tablet PO (09:20)
[2023-03-26] MEDS: Miconazole Nitrate 43 GM Bottle 1 APPLIC TOPICAL ×2 (09:22→22:44)
[2023-03-26] MEDS: Menthol/Lanolin/Calamine/Znox 113 GM Tube 1 APPLIC TOPICAL ×2 (09:22→22:44)
[2023-03-26] MEDS: Fluticasone 0.05% 1 SPRAY NASAL.SRY 2 SPRAY NASAL (09:23)
[2023-03-26] MEDS: Fluticasone/Salmeterol 232-14 Inhaler 1 PUFF INHALATION ×2 (09:28→22:43)
[2023-03-26] MEDS: Umeclidinium Bromide Inhaler 1 PUFF INHALATION (09:28)
[2023-03-26] MEDS: Acetaminophen 500 MG Tablet 1000 MG PO (09:32)
[2023-03-26] MEDS: Ferrous Sulfate 325 MG Tablet PO (11:52)
--- NOTE | 2023-03-26 13:04 | CASEMGMT ---
Social Work IDT met with patient and for care plan meeting. Discussed patient's progress in PT/OT/ST/SN. Educated to [facility] insurance with [employer] 03/31, EDC 04/03. Pt expressed readiness to DC home. Offered DC 03/29. Pt/ agreeable. Recommending HHC. Pt agreeable and would like to use [facility] HHC. Pt also needs a FWW w/tray and BSC. SW educated to insurance not covering a tray and provided places to purchase tray. SW to coordinate the other DME and HHC. Family can transport. SW phoned referral to [facility] PT/OT/SN/CONDON. [place] [facility] [place] [employer]. Plan: DC home with 03/29, [facility] PT/OT/SN/CONDON, FWW, 3-in-1 commode. Zoraida Michael, BEA PRODUCTION CONTROL COORDINATOR
[2023-03-26 13:42] VITALS: BP 95/61; PULSE 89; RESP 16; TEMP 36.7
--- NOTE | 2023-03-26 14:05 | MDS.RN ---
Information for the mds was obtained from review of the clinical record, interview of resident, staff, and direct observation of resident's care.
[2023-03-26] MEDS: Montelukast 10 MG Tablet PO (22:44)
[2023-03-26] MEDS: Petrolatum 33% Tube 1 APPLIC TOPICAL (22:44)
[2023-03-27] MEDS: Levothyroxine 75 MCG Tablet PO (05:31)
[2023-03-27 06:29] LABS: Anion Gap 7 (5-15); BUN 31 mg/dL (7-18); BUN/Creat Ratio 23.8 RATIO (10-20); Calcium,Total 8.3 mg/dL (8.5-10.1); Chloride 99 mmol/L (98-107); EST Glomerular Filtration Rate 56 mL/min (>60); Est Glom Filt Rate - Afr Amer 68 mL/min (>60); Estimated Creatinine Clearance 40.92 ml/min; Glucose 120 mg/dL (74-106); Potassium 3.5 mmol/L (3.5-5.1); Sodium Level 135 mmol/L (136-145)
--- NOTE | 2023-03-27 07:46 | DS.PCM_ITS ---
Providers Date of Admission: 03/18/23 Primary Care Physician: Dr. Angelique Grossman MD Reason For Visit: ILEUS Diagnosis Discharge Diagnosis (1) Debility: Status: Acute Code(s): R53.81 - Other malaise (2) Fecal impaction of colon: Status: Acute Code(s): K56.41 - Fecal impaction (3) Ileus: Status: Resolved Code(s): K56.7 - Ileus, unspecified (4) COVID-19: Status: Resolved Code(s): U07.1 - COVID-19 (5) Hypokalemia: Status: Resolved Code(s): E87.6 - Hypokalemia (6) History of right hip hemiarthroplasty: Status: Acute Code(s): Z96.641 - Presence of right artificial hip joint (7) Closed right hip fracture: Status: Acute Code(s): S72.001A - Fracture of unspecified part of neck of right femur, initial encounter for closed fracture Qualifiers: Encounter type: initial encounter Qualified Code(s): S72.001A - Fracture of unspecified part of neck of right femur, initial encounter for closed fracture (8) COPD (chronic obstructive pulmonary disease): Status: Chronic Code(s): J44.9 - Chronic obstructive pulmonary disease, unspecified (9) Hypertension: Status: Chronic Code(s): I10 - Essential (primary) hypertension (10) Iron deficiency anemia: Status: Acute Code(s): D50.9 - Iron deficiency anemia, unspecified (11) Asthma: Status: Chronic Code(s): J45.909 - Unspecified asthma, uncomplicated Qualifiers: Asthma severity: unspecified severity Asthma complication type: unspecified (12) Hypothyroidism: Status: Chronic Code(s): E03.9 - Hypothyroidism, unspecified (13) Depression: Status: Acute Code(s): F32.A - Depression, unspecified Plan 82 year old male with below past medical history hospitalized for ileus, fecal impaction of colon, complicated by covid-19, admitted to TCU with debility, here for rehabilitation, strengthening, prior to discharge home with . * Debility - PT/OT. * Pain - Tylenol 1000mg q8. * Bowel - Miralax 17gm daily, senna/colace 2 tablets bid, Magnesium citrate 300ml po daily prn. * Adult immunization - Administer pneumonia vaccine, covid19 vaccine, flu vaccine as appropriate. * DVT prophylaxis - Aspirin 81mg bid thru 04/01/2023. * COPD - Advair 1 puff bid, Incruse 1 puff daily, Albuterol 2.5mg q6h prn. * Asthma Advair 1 puff bid, Singulair 10mg daily, Albuterol 2.5mg q6h prn. * Covid-19 - Cepacol 2 lozenges q2h prn, Dexamethasone 6mg daily thru 03/23/2023. * Hypertension - Chlorthalidone 25mg daily. * Anaphylaxis - Epipen 0.3mg im x 1 prn. * GERD - Famotidine 40mg daily. * Iron deficiency anemia - Ferrous sulfate 325mg daily. * Allergic rhinitis - Flonase 2 sprays nasal daily. * Hypothyroidism - Levothyroxine 75mcg daily. * Skin irritation - Calmoseptine topical bid, Eucerin topical qhs. * Tinea Corporis - Miconazole topical bid. * Nutrition - MVI 1 daily. * Coronary artery disease - NTG 0.4mg sl q5m prn. * Depression - Sertraline 100mg daily, stable chronic jail use, GDR not recommended. Medications at Discharge Home Medications acetaminophen 500 mg tablet 1,000 mg PO BID PRN PAIN 12/04/18 epinephrine 0.3 mg/0.3 mL injection, auto-injector 0.3 mg IJ PRN PRN ANAPHYLAXIS 12/04/18 multivitamin 1 tab PO QAM VITAMIN 04/19/19 sertraline 100 mg tablet 100 mg PO DAILY DEPRESSION #90 tabs 06/10/22 fluticasone propionate 50 mcg/actuation nasal spray,suspension 2 spray intranasal DAILY ALLERGIES #16 grams 06/27/22 levothyroxine 75 mcg tablet 75 mcg PO DAILY THYROID #90 tabs 08/12/22 fluticasone propionate 230 mcg-salmeterol 21 mcg/actuation HFA inhaler 2 puff inhalation BID ASTHMA #1 device 08/23/22 montelukast 10 mg tablet 10 mg PO QPM ALLERGIES #30 tabs 09/27/22 ferrous sulfate 325 mg (65 mg iron) tablet (FeroSul) 325 mg PO DAILY SUPPLEMENT 11/29/22 nitroglycerin 0.4 mg sublingual tablet 0.4 mg sublingual Q5-15M PRN CHEST PAIN #25 tabs 12/02/22 famotidine 40 mg tablet 40 mg PO DAILY ACID REFLUX #90 tabs 01/02/23 albuterol sulfate 2.5 mg/3 mL (0.083 %) solution for nebulization 2.5 mg inhalation Q6H PRN SHORTNESS OF BREATH/WHEEZING 01/30/23 albuterol sulfate 90 mcg/actuation aerosol inhaler 2 puff inhalation Q4H PRN SHORTNESS OF BREATH/WHEEZING 03/12/23 tiotropium bromide 2.5 mcg/actuation mist for inhalation (Spiriva Respimat) 2 puff inhalation DAILY ASTHMA 03/12/23 Handicap placard #1 ea 03/17/23 acetaminophen 500 mg tablet 1,000 mg (2 x 500 mg) PO Q8 Pain #0 tabs 03/17/23 acetaminophen 500 mg tablet 1,000 mg (2 x 500 mg) PO Q6H PRN PRN Pain Score 1-10 #0 tabs 03/27/23 aspirin 81 mg tablet,delayed release 81 mg PO BID 3 days #0 tabs 03/27/23 polyethylene glycol 3350 17 gram oral powder packet 17 g PO DAILY 30 days #30 ea 03/27/23 sennosides 8.6 mg-docusate sodium 50 mg tablet (Stool Softener-Stimulant Laxative) 1 tab PO BID 30 days #0 tabs 03/27/23
--- NOTE | 2023-03-27 07:46 | PCM.DC.SUM ---
Providers Date of Admission: 03/18/23 Primary Care Physician: Dr. Angelique Grossman MD Reason For Visit: ILEUS Diagnosis Discharge Diagnosis (1) Debility: Status: Acute Code(s): R53.81 - Other malaise (2) Fecal impaction of colon: Status: Acute Code(s): K56.41 - Fecal impaction (3) Ileus: Status: Resolved Code(s): K56.7 - Ileus, unspecified (4) COVID-19: Status: Resolved Code(s): U07.1 - COVID-19 (5) Hypokalemia: Status: Resolved Code(s): E87.6 - Hypokalemia (6) History of right hip hemiarthroplasty: Status: Acute Code(s): Z96.641 - Presence of right artificial hip joint (7) Closed right hip fracture: Status: Acute Code(s): S72.001A - Fracture of unspecified part of neck of right femur, initial encounter for closed fracture Qualifiers: Encounter type: initial encounter Qualified Code(s): S72.001A - Fracture of unspecified part of neck of right femur, initial encounter for closed fracture (8) COPD (chronic obstructive pulmonary disease): Status: Chronic Code(s): J44.9 - Chronic obstructive pulmonary disease, unspecified (9) Hypertension: Status: Chronic Code(s): I10 - Essential (primary) hypertension (10) Iron deficiency anemia: Status: Acute Code(s): D50.9 - Iron deficiency anemia, unspecified (11) Asthma: Status: Chronic Code(s): J45.909 - Unspecified asthma, uncomplicated Qualifiers: Asthma severity: unspecified severity Asthma complication type: unspecified (12) Hypothyroidism: Status: Chronic Code(s): E03.9 - Hypothyroidism, unspecified (13) Depression: Status: Acute Code(s): F32.A - Depression, unspecified Plan 82 year old male with below past medical history hospitalized for ileus, fecal impaction of colon, complicated by covid-19, admitted to TCU with debility, here for rehabilitation, strengthening, prior to discharge home with . Debility - PT/OT. Pain - Tylenol 1000mg q8. Bowel - Miralax 17gm daily, senna/colace 2 tablets bid, Magnesium citrate 300ml po daily prn. Adult immunization - Administer pneumonia vaccine, covid19 vaccine, flu vaccine as appropriate. DVT prophylaxis - Aspirin 81mg bid thru 04/01/2023. COPD - Advair 1 puff bid, Incruse 1 puff daily, Albuterol 2.5mg q6h prn. Asthma Advair 1 puff bid, Singulair 10mg daily, Albuterol 2.5mg q6h prn. Covid-19 - Cepacol 2 lozenges q2h prn, Dexamethasone 6mg daily thru 03/23/2023. Hypertension - Chlorthalidone 25mg daily. Anaphylaxis - Epipen 0.3mg im x 1 prn. GERD - Famotidine 40mg daily. Iron deficiency anemia - Ferrous sulfate 325mg daily. Allergic rhinitis - Flonase 2 sprays nasal daily. Hypothyroidism - Levothyroxine 75mcg daily. Skin irritation - Calmoseptine topical bid, Eucerin topical qhs. Tinea Corporis - Miconazole topical bid. Nutrition - MVI 1 daily. Coronary artery disease - NTG 0.4mg sl q5m prn. Depression - Sertraline 100mg daily, stable chronic halfway use, GDR not recommended. Medications at Discharge Home Medications acetaminophen 500 mg tablet 1,000 mg PO BID PRN PAIN 12/04/18 epinephrine 0.3 mg/0.3 mL injection, auto-injector 0.3 mg IJ PRN PRN ANAPHYLAXIS 12/04/18 multivitamin 1 tab PO QAM VITAMIN 04/19/19 sertraline 100 mg tablet 100 mg PO DAILY DEPRESSION #90 tabs 06/10/22 fluticasone propionate 50 mcg/actuation nasal spray,suspension 2 spray intranasal DAILY ALLERGIES #16 grams 06/27/22 levothyroxine 75 mcg tablet 75 mcg PO DAILY THYROID #90 tabs 08/12/22 fluticasone propionate 230 mcg-salmeterol 21 mcg/actuation HFA inhaler 2 puff inhalation BID ASTHMA #1 device 08/23/22 montelukast 10 mg tablet 10 mg PO QPM ALLERGIES #30 tabs 09/27/22 ferrous sulfate 325 mg (65 mg iron) tablet (FeroSul) 325 mg PO DAILY SUPPLEMENT 11/29/22 nitroglycerin 0.4 mg sublingual tablet 0.4 mg sublingual Q5-15M PRN CHEST PAIN #25 tabs 12/02/22 famotidine 40 mg tablet 40 mg PO DAILY ACID REFLUX #90 tabs 01/02/23 albuterol sulfate 2.5 mg/3 mL (0.083 %) solution for nebulization 2.5 mg inhalation Q6H PRN SHORTNESS OF BREATH/WHEEZING 01/30/23 albuterol sulfate 90 mcg/actuation aerosol inhaler 2 puff inhalation Q4H PRN SHORTNESS OF BREATH/WHEEZING 03/12/23 tiotropium bromide 2.5 mcg/actuation mist for inhalation (Spiriva Respimat) 2 puff inhalation DAILY ASTHMA 03/12/23 Handicap placard #1 ea 03/17/23 acetaminophen 500 mg tablet 1,000 mg (2 x 500 mg) PO Q8 Pain #0 tabs 03/17/23 acetaminophen 500 mg tablet 1,000 mg (2 x 500 mg) PO Q6H PRN PRN Pain Score 1-10 #0 tabs 03/27/23 aspirin 81 mg tablet,delayed release 81 mg PO BID 3 days #0 tabs 03/27/23 polyethylene glycol 3350 17 gram oral powder packet 17 g PO DAILY 30 days #30 ea 03/27/23 sennosides 8.6 mg-docusate sodium 50 mg tablet (Stool Softener-Stimulant Laxative) 1 tab PO BID 30 days #0 tabs 03/27/23 Hospital Course Operations None Procedures None Summary of Care Provided Minutes Spent on Discharge: 35 Hospital Course: 82 year old male with below past medical history hospitalized for ileus, fecal impaction of colon, complicated by covid-19, admitted to TCU with debility, here for rehabilitation, strengthening, prior to discharge home with . Discharge home with 03/29/2023, [facility] PT/OT/SN/OCNDON, Front wheeled walker, 3-in-1 commode. Walker: Patient unsafe to use a cane and requires a walker for ambulation. 3-in-1 commode: Patient is unable to access bathroom safely and requires a 3-in-1 commode. Physical Exam Const alert General Appearance: cooperative HEENT normocephalic Eyes PERRL and EOMs intact bilaterally Neck supple, no JVD and no carotid bruits Resp normal respiratory effort, normal air movement and clear to auscultation bilaterally Cardio regular rate and regular rhythm GI normal to inspection, nondistended, normoactive bowel sounds, non-tender and non-distended Extremity normal capillary refill General Extremity: Negative for edema Skin no rashes or lesions noted General Skin Exam: no breakdown Psych affect normal Appearance: appropriate Medical Records Data Medical Nutrition Assessment Dietitian: Malnutrition Criteria Met Start: 03/19/23 12:27 Freq: Status: Active Protocol: Document 03/19/23 12:27 SLA (Rec: 03/19/23 12:27 SLA Desktop) Nutrition Malnutrition Evidence of Malnutrition Exists Yes Malnutrition (severe): Chronic Evidenced By Suboptimal Energy Intake ( Severe),Weight Loss (Severe) Clinical Problem Chronic Disease or Condition Related Malnutrition Etiology related to inadequate energy intake Signs/Symptoms as evidence by 16.4% wt loss and po intake meeting <75% of est nutritional needs x past 2 -3 month Status Active Problem Recommendation Dietitian Recommendations/Changes Continue liberal regular diet - consistency per FOAM CASTER Continue ensure compact tid w/ meals for increased nutrition if consumed Rec consider appetite stimulant if po intake fails to improve. Weight / BMI Weight Weight: 69.116 kg Body Mass Index (BMI) 23.1 ABG / Lab / Microbiology Data 03/26/23 05:50 03/27/23 05:25 Laboratory: Laboratory Results - last 24 hr 03/27/23 05:25: Sodium 135 L, Potassium 3.5, Chloride 99, Carbon Dioxide 29.0, Anion Gap 7, BUN 31 H, Creatinine 1.30, Estim Creat Clear Calc 40.92, Est GFR (MDRD) Af Amer 68, Est GFR (MDRD) Non-Af 56 L, BUN/Creatinine Ratio 23.8 H, Glucose 120 H, Calcium 8.3 L D/C Instructions Discharge Diet: No restrictions Discharge Activity: Return to Normal Activity, May Shower and Use Walker Weight Bearing Status: Weight bearing as tolerated Call your doctor if you observe: Fever of 101 or Higher, Inability to urinate, Inability to have a bowel movement, Shortness of breath, Dizziness, Fainting spells, Swelling in the ankles, Chest pain and Uncontrolled pain Additional Instructions: Discharge home with 03/29/2023, [facility] PT/OT/SN/CONDON, Front wheeled walker, 3-in-1 commode. Please Follow Up With: Stanley Tristan MD When: As scheduled. Meaningful Use Info Meaningful Use Diagnoses (Choose all that apply): None applicable Discharge Plan Admission Admit Date/Time: 03/18/23 14:18 Primary Reason for Your Visit: Debility. Attending Provider: Bon Alvarez Chi Primary Care Provider: Angelique Grossman Instructions Additional Instructions / Restrictions: Discharge home with 03/29/2023, [facility] PT/OT/SN/CONDON, Front wheeled walker, 3-in-1 commode. Discharge Orders/Prescriptions Prescriptions: New acetaminophen 500 mg Tablet 1,000 mg PO Q6H PRN PRN (Reason: Pain Score 1-10) Qty: 0 0RF aspirin 81 mg Tablet,Delayed Release (Dr/Ec) 81 mg PO BID 3 Days Qty: 0 0RF polyethylene glycol 3350 17 gram Powder In Packet 17 g PO DAILY 30 Days Qty: 30 0RF sennosides-docusate sodium [Stool Softener-Stimulant Laxat] 8.6-50 mg Tablet 1 tab PO BID 30 Days Qty: 0 0RF Continued multivitamin Tablet 1 tab PO QAM montelukast 10 mg tablet 10 mg PO QPM Qty: 30 3RF ferrous sulfate [FeroSul] 325 mg (65 mg iron) tablet 325 mg PO DAILY epinephrine 0.3 MG/0.3 ML auto-injector 0.3 mg IJ PRN PRN (Reason: ANAPHYLAXIS ) Spiriva Respimat 2.5 mcg/actuation mist 2 puff INHALATION DAILY sertraline 100 mg tablet 100 mg PO DAILY Qty: 90 1RF fluticasone propionate 50 mcg/actuation spray,suspension 2 spray intranasal DAILY Qty: 16 3RF levothyroxine 75 mcg tablet 75 mcg PO DAILY Qty: 90 3RF fluticasone propion-salmeterol 230-21 mcg/actuation HFA aerosol inhaler 2 puff INHALATION BID Qty: 1 11RF nitroglycerin 0.4 mg tablet, sublingual 0.4 mg sublingual Q5-15M PRN (Reason: CHEST PAIN) Qty: 25 3RF famotidine 40 mg tablet 40 mg PO DAILY Qty: 90 3RF Discontinued polyethylene glycol 3350 17 gram Powder In Packet 17 g PO DAILY 30 Days Qty: 30 0RF sennosides-docusate sodium [Stool Softener-Stimulant Laxat] 8.6-50 mg Tablet 1 tab PO BID 30 Days Qty: 60 0RF Xarelto 10 mg tablet 10 mg PO DAILY 14 Days Qty: 14 0RF aspirin 81 mg tablet,delayed release (DR/EC) 81 mg PO BID 14 Days Qty: 28 0RF dexamethasone 4 mg Tablet 6 mg PO DAILYCM Qty: 0 0RF Rx Instructions: through 03/23 Chloraseptic Sore Throat 6-10 mg Lozenge 2 philly mucous membrane Q2H PRN PRN (Reason: SORE THROAT) Qty: 0 0RF chlorthalidone 25 mg tablet 25 mg PO DAILY Qty: 90 3RF nystatin-triamcinolone 100,000-0.1 unit/g-% cream 1 applic topical BID PRN (Reason: RASH ) Qty: 30 1RF No Action acetaminophen 500 MG tablet 1,000 mg PO BID PRN (Reason: PAIN ) albuterol sulfate 2.5 mg /3 mL (0.083 %) solution for nebulization 2.5 mg INHALATION Q6H PRN (Reason: SHORTNESS OF BREATH/WHEEZING ) albuterol sulfate 90 mcg/actuation HFA aerosol inhaler 2 puff INHALATION Q4H PRN (Reason: SHORTNESS OF BREATH/WHEEZING) acetaminophen 500 mg Tablet 1,000 mg PO Q8 Qty: 0 0RF (DME) Handicap placard See Rx Instructions .Route .MEDSUPPLY Qty: 1 0RF Rx Instructions: 5 year RX 03.17.23-03.17.28 Referrals / Follow Up: Angelique Grossman MD [Primary Care Provider] - Stanley Tristan MD [Med Staff - Active Staff] - 04/16/23 10:15 am Disposition Disposition (needs filled in before D/C Order can be placed): Home Health Service
[2023-03-27] MEDS: Multivitamins,Therapeutic Tablet 1 TABLET PO (09:26)
[2023-03-27] MEDS: Miconazole Nitrate 43 GM Bottle 1 APPLIC TOPICAL ×2 (09:26→20:34)
[2023-03-27] MEDS: Aspirin E.C. 81 MG Tablet PO ×2 (09:28→20:30)
[2023-03-27] MEDS: Menthol/Lanolin/Calamine/Znox 113 GM Tube 1 APPLIC TOPICAL ×2 (09:28→20:34)
[2023-03-27] MEDS: Senna/Docusate Sodium 1 Tablet PO ×2 (09:29→20:31)
[2023-03-27] MEDS: Sertraline 100 MG Tablet PO (09:30)
[2023-03-27] MEDS: Fluticasone 0.05% 1 SPRAY NASAL.SRY 2 SPRAY NASAL (09:30)
[2023-03-27] MEDS: Famotidine 20 MG Tablet 40 MG PO (09:30)
[2023-03-27] MEDS: Fluticasone/Salmeterol 232-14 Inhaler 1 PUFF INHALATION ×2 (09:31→20:30)
[2023-03-27] MEDS: Umeclidinium Bromide Inhaler 1 PUFF INHALATION (09:32)
[2023-03-27] MEDS: Acetaminophen 500 MG Tablet 1000 MG PO (09:39)
[2023-03-27 09:44] VITALS: BP 102/64; PULSE 90
[2023-03-27] MEDS: Ferrous Sulfate 325 MG Tablet PO (12:13)
[2023-03-27 14:46] VITALS: BP 104/56
[2023-03-27 15:34] VITALS: PULSE 86; RESP 18; TEMP 36.6; O2SAT 94
--- NOTE | 2023-03-27 15:51 | NURSING ---
PT BP LOW,ASKED PT IF HE WAS DRINKING WATER. PT ADMITTED TO NOT DRINKING A HOLE A LOT OF WATER. EDUCATED PT ON THE IMPORTANCE OF DRINKING WATER. PT STATED HE WOULD DRINK MORE.
[2023-03-27 20:30] VITALS: O2SAT 94
[2023-03-27] MEDS: Montelukast 10 MG Tablet PO (20:31)
[2023-03-27] MEDS: Petrolatum 33% Tube 1 APPLIC TOPICAL (20:34)
[2023-03-28] MEDS: Levothyroxine 75 MCG Tablet PO (05:28)
[2023-03-28] MEDS: Acetaminophen 500 MG Tablet 1000 MG PO (05:29)
[2023-03-28 05:39] VITALS: O2SAT 94
[2023-03-28 05:50] VITALS: PULSE 82; RESP 20
[2023-03-28] MEDS: Albuterol 2.5 MG/3 ML VIAL.NEB. INHALATION (05:50)
[2023-03-28] MEDS: Multivitamins,Therapeutic Tablet 1 TABLET PO (09:00)
[2023-03-28] MEDS: Menthol/Lanolin/Calamine/Znox 113 GM Tube 1 APPLIC TOPICAL ×2 (10:10→19:58)
[2023-03-28] MEDS: Miconazole Nitrate 43 GM Bottle 1 APPLIC TOPICAL ×2 (10:11→19:58)
[2023-03-28] MEDS: Fluticasone 0.05% 1 SPRAY NASAL.SRY 2 SPRAY NASAL (10:12)
[2023-03-28] MEDS: Aspirin E.C. 81 MG Tablet PO ×2 (10:12→19:56)
[2023-03-28] MEDS: Umeclidinium Bromide Inhaler 1 PUFF INHALATION (10:13)
[2023-03-28] MEDS: Famotidine 20 MG Tablet 40 MG PO (10:14)
[2023-03-28] MEDS: Senna/Docusate Sodium 1 Tablet PO (10:15)
[2023-03-28] MEDS: Sertraline 100 MG Tablet PO (10:15)
[2023-03-28] MEDS: Fluticasone/Salmeterol 232-14 Inhaler 1 PUFF INHALATION ×2 (10:16→19:57)
[2023-03-28] MEDS: Polyethylene Glycol 3350 17 GM PACKET PO (10:16)
[2023-03-28] MEDS: Ferrous Sulfate 325 MG Tablet PO (12:18)
[2023-03-28 15:52] VITALS: BP 106/60; PULSE 94; RESP 18; TEMP 36.4; O2SAT 97
--- NOTE | 2023-03-28 16:19 | CASEMGMT ---
Social Work BIMS and PHQ-2 completed for MDS assessment. Zoraida Michael, [employer]
[2023-03-28] MEDS: Montelukast 10 MG Tablet PO (19:55)
[2023-03-28] MEDS: Petrolatum 33% Tube 1 APPLIC TOPICAL (19:55)
[2023-03-29] MEDS: Levothyroxine 75 MCG Tablet PO (04:51)
[2023-03-29 08:02] VITALS: O2SAT 95
[2023-03-29 08:29] VITALS: BP 91/51; PULSE 98; RESP 16; TEMP 36.7; O2SAT 97
[2023-03-29] MEDS: Miconazole Nitrate 43 GM Bottle 1 APPLIC TOPICAL (08:34)
[2023-03-29] MEDS: Multivitamins,Therapeutic Tablet 1 TABLET PO (08:34)
[2023-03-29] MEDS: Umeclidinium Bromide Inhaler 1 PUFF INHALATION (08:35)
[2023-03-29] MEDS: Fluticasone 0.05% 1 SPRAY NASAL.SRY 2 SPRAY NASAL (08:35)
[2023-03-29] MEDS: Menthol/Lanolin/Calamine/Znox 113 GM Tube 1 APPLIC TOPICAL (08:35)
[2023-03-29] MEDS: Fluticasone/Salmeterol 232-14 Inhaler 1 PUFF INHALATION (08:35)
[2023-03-29] MEDS: Aspirin E.C. 81 MG Tablet PO (08:35)
[2023-03-29] MEDS: Senna/Docusate Sodium 1 Tablet PO (08:36)
[2023-03-29] MEDS: Sertraline 100 MG Tablet PO (08:36)
[2023-03-29] MEDS: Famotidine 20 MG Tablet 40 MG PO (08:36)
[2023-03-29 09:59] VITALS: BP 97/59; PULSE 93
== END 2023-03-29 10:01 | disposition home health service (06) | DRG 561 ==
PROVIDERS: Admitting Provider Family Medicine Geriatric Medicine; PCP Internal Medicine; Referring Provider Family Medicine Geriatric Medicine; Visit Provider Family Medicine Geriatric Medicine
DX: Z47.1 Aftercare following joint replacement surgery (principal); D63.1 Anemia in chronic kidney disease; D50.0 Iron deficiency anemia secondary to blood loss (chronic); B35.4 Tinea corporis; E03.9 Hypothyroidism, unspecified; I25.10 Atherosclerotic heart disease of native coronary artery without angina pectoris; I48.91 Unspecified atrial fibrillation; N18.30 Chronic kidney disease, stage 3 unspecified; J44.9 Chronic obstructive pulmonary disease, unspecified; F32.A Depression, unspecified; I12.9 Hypertensive chronic kidney disease with stage 1 through stage 4 chronic kidney disease, or unspecified chronic kidney disease; E78.5 Hyperlipidemia, unspecified; J30.9 Allergic rhinitis, unspecified; Z79.01 Long term (current) use of anticoagulants; Z86.16 Personal history of COVID-19; Z79.82 Long term (current) use of aspirin; Z79.51 Long term (current) use of inhaled steroids; Z96.643 Presence of artificial hip joint, bilateral; Z79.899 Other long term (current) drug therapy; Z79.890 Hormone replacement therapy
CPT/HCPCS: 36415; 73502; 80048; 85025; 92526; 92610; 94640; 97110; 97162; 97166; 97530; 97535; 97802; A4216

== ENCOUNTER → 2023-06-18 | Outpatient (CLI) | payer MEDICARE, SELFPAY ==
[2023-06-18 11:42] LABS: Bacteria 0 SEEN /hpf (None Seen); Mucous, Urine 0 SEEN /hpf (<or=2+); Red Blood Cells-Urine 0 SEEN /hpf (0-5); Squamous Epithelial Cells - UA 0 SEEN /hpf (0-5); White Blood Cells 0 SEEN /hpf (0-5)
[2023-06-18 11:57] LABS: Color, Urine Yellow (Yellow); Glucose, Dipstick Normal (Normal); Ketone-Dipstick Negative (Negative); Leukocyte Esterase-Dipstick Negative /ul (Negative); Nitrite-Dipstick Negative (Negative); Occult Blood-Urine Negative /ul (Negative); Protein-Dipstick Negative (Negative); Urine Bilirubin Dipstick Negative (Negative); Urine Clarity Sl. Cloudy (Clear); Urine Urobilinogen Normal (Normal)
== END | disposition home or self-care (01) ==
PROVIDERS: PCP Internal Medicine; Referring Provider Internal Medicine; Visit Provider Internal Medicine
DX: R30.0 Dysuria (principal)
CPT/HCPCS: 81001; 87086; 87088

== ENCOUNTER 2023-06-24 12:22 | Inpatient (IN) | payer MEDICARE, SELFPAY ==
[2023-06-24] VITALS (12 sets, daily range): BP systolic 96–113; BP diastolic 46–72; PULSE 63–115; RESP 16–30; TEMP 36.4–37.3; O2SAT 91–97; BMI 25.2; BMI 25.3
--- NOTE | 2023-06-24 12:53 | ED.VIS.DYS ---
HPI History of Present Illness Chief Complaint: Shortness of Breath Informant: patient and family Onset/Context/Timing Onset: Yesterday Context: sudden Timing: Continuous and Waxes and wanes Quality: Positive for Dyspnea on exertion and Wheezing; Negative for Orthopnea or PND Maximum Severity: Severe Worsened by: Exertion (Patient is barely able to walk across the room. Month ago he was able to walk without dyspnea.) Relieved by: Nothing Associated Symptoms cough, rhinorrhea, post nasal drip, fever, subjective, chills and clear sputum; Negative for ear pain, sore throat, sweats, white sputum or yellow sputum Chest Pain: Positive for None Narrative Narrative: Patient is an 82-year-old gentleman who presents with subjective fever, chills, cough productive of clear possibly white-colored sputum, shortness of breath, dyspnea on exertion and wheezing. Symptoms started yesterday. No ill contacts to his knowledge. He is not normally on oxygen. When I entered the room his pulse ox was 90% on 2 L. Patient does report mild headache. Denies double vision, blurred vision or loss of vision. Patient denies neck pain or neck stiffness. Patient reports generalized fatigue and weakness. He does report nausea. Has had diarrhea. He is presently wearing a depends diaper because he cannot control the amount of diarrhea he has had. He has not been on any antibiotic in the past month. He has not had anything unusual to eat or anything that tasted unusual to him. PE Risk Factors: Positive for Recent immobilization; Negative for Cancer, Prior DVT or PE or Recent travel Prior similar symptoms: Yes (COPD exacerbation) Recent Illness/Hospitalization: No PFSH [facility] Medical History Allergic rhinitis Anemia of chronic renal failure, stage 3 (moderate) Arthritis Atrial fibrillation and flutter Bruising Cellulitis and abscess of right leg Cellulitis of left leg Cellulitis of right lower extremity Chronic asthma Chronic 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 Closed hip fracture Coronary heart disease Degenerative joint disease of knee, right Diverticulosis Diverticulosis Essential (primary) hypertension Failed fixation of fracture Gout Hay fever History of deep vein thrombosis of lower extremity HLD (hyperlipidemia) Hypothyroidism Iron deficiency anemia due to chronic blood loss Left ventricular diastolic dysfunction Leg wound, left Macular degeneration Non-pressure chronic ulcer of left calf with fat layer exposed Nonrheumatic aortic (valve) stenosis Osteoarthritis Pleural plaque Presence of cardiac pacemaker Pulmonary nodule Right knee DJD Secondary pulmonary arterial hypertension Skin cancer Traumatic open wound of right lower leg with infection Venous ulcer with fat layer exposed Home Medications epinephrine 0.3 mg/0.3 mL injection, auto-injector 0.3 mg IJ PRN PRN ANAPHYLAXIS 12/04/18 [History Last Taken Unknown] multivitamin 1 tab PO QAM VITAMIN 04/19/19 [History Last Taken 03/12/23] fluticasone propionate 50 mcg/actuation nasal spray,suspension 2 spray intranasal DAILY ALLERGIES #16 grams 06/27/22 [Rx Last Taken 03/18/23] levothyroxine 75 mcg tablet 75 mcg PO DAILY THYROID #90 tabs 08/12/22 [Rx Last Taken 03/18/23] fluticasone propionate 230 mcg-salmeterol 21 mcg/actuation HFA inhaler 2 puff inhalation BID ASTHMA #1 device 08/23/22 [Rx Last Taken 03/12/23] montelukast 10 mg tablet 10 mg PO QPM ALLERGIES #30 tabs 09/27/22 [Rx Last Taken 03/17/23] ferrous sulfate 325 mg (65 mg iron) tablet (FeroSul) 325 mg PO DAILY SUPPLEMENT 11/29/22 [History Last Taken 03/12/23] nitroglycerin 0.4 mg sublingual tablet 0.4 mg sublingual Q5-15M PRN CHEST PAIN #25 tabs 12/02/22 [Rx Last Taken Unknown] famotidine 40 mg tablet 40 mg PO DAILY ACID REFLUX #90 tabs 01/02/23 [Rx Last Taken 03/18/23] albuterol sulfate 2.5 mg/3 mL (0.083 %) solution for nebulization 2.5 mg inhalation Q6H PRN SHORTNESS OF BREATH/WHEEZING 01/30/23 [History Last Taken 02/06/23] albuterol sulfate 90 mcg/actuation aerosol inhaler 2 puff inhalation Q4H PRN SHORTNESS OF BREATH/WHEEZING 03/12/23 [History Last Taken Unknown] tiotropium bromide 2.5 mcg/actuation mist for inhalation (Spiriva Respimat) 2 puff inhalation DAILY ASTHMA 03/12/23 [History Last Taken 03/12/23] Handicap placard #1 ea 03/17/23 [Rx Last Taken Unknown] acetaminophen 500 mg tablet 1,000 mg (2 x 500 mg) PO Q8 Pain #0 tabs 03/17/23 [Rx Last Taken Unknown] aspirin 81 mg tablet,delayed release 81 mg PO BID 3 days #0 tabs 03/27/23 [Rx Last Taken Unknown] sertraline 100 mg tablet 100 mg PO DAILY DEPRESSION #90 tabs 04/08/23 [Rx Last Taken Unknown] menthol 0.44 %-zinc oxide 20.6 % topical ointment (Calmoseptine) 1 applic topical 4-6XD PRN skin irritation #113 grams 04/16/23 [Rx Last Taken Unknown] polyethylene glycol 3350 17 gram oral powder packet 17 g PO DAILY PRN 06/02/23 [History Last Taken Unknown] sennosides 8.6 mg-docusate sodium 50 mg tablet (Stool Softener-Stimulant Laxative) 1 tab PO BID PRN 06/02/23 [History Last Taken Unknown] Allergy/AdvReac Type Severity Reaction Status Date / Time indomethacin [From Indocin] AdvReac Intermediate Itching Verified 06/02/23 13:04 indomethacin sodium AdvReac Intermediate Itching Verified 06/02/23 13:04 [From Indocin] oxycodone HCl [From Percocet] AdvReac Intermediate Itching Verified 06/02/23 13:04 Family History Father Heart disease Colon cancer Sister Diabetes Mother Breast cancer Surgical History H/O hernia repair H/O prostatectomy H/O shoulder surgery H/O total knee replacement History of appendectomy History of appendectomy History of carpal tunnel surgery History of hernia repair History of left heart catheterization (02/25/22) History of prostatectomy History of total knee replacement History of total left hip replacement History of total left hip replacement Social History household members: spouse housing: house Smoking Status: Never smoker second hand exposure: Yes alcohol intake: current alcohol intake frequency: holidays/special occasions only Alcohol type: beer substance use type: does not use caffeine: Yes Type: coffee Number of servings: 2 what type of physical activity do you participate in: walking frequency: daily giancarlo/mandaen: [employer] seatbelt use: always do you feel safe at home: Yes ROS ROS ED Constitutional Constitutional ED: Reports chills, fever(s) and sweats; Denies weight loss Eyes Eyes: Denies blurry vision, change in vision or diplopia ENT ENT ED: Reports rhinorrhea and sore throat; Denies ear pain Cardiovascular Cardiovascular: Reports palpitations; Denies chest pain, orthopnea, paroxysmal nocturnal dyspnea or racing heartbeat Respiratory/Chest Respiratory/Chest: Reports cough, dyspnea, dyspnea on exertion and sputum; Denies orthopnea or paroxysmal nocturnal dyspnea Gastrointestinal Gastrointestinal: Reports diarrhea and nausea; Denies abdominal pain or vomiting Genitourinary Genitourinary ED: Denies dysuria, hematuria or urinary frequency Musculoskeletal Musculoskeletal: Reports arthralgias and myalgias; Denies back pain or neck pain Integumentary Reports other Details: Patient has multiple bruises. He is on a baby aspirin a day. Based on his med list he is on no antithrombotic agent other than the aspirin and no anticoagulant. ; Denies abscess or rash Neurologic Neurologic: Reports headache(s) and weakness; Denies paresthesias Psychiatric Psychiatric: Denies anxiety or depression Endocrine Endocrinology: Denies cold intolerance or heat intolerance Hematologic/Lymphatic Hematologic/Lymphatic: Reports easy bruising; Denies easy bleeding EXAM Physical Exam Const Vital Signs: 06/24/23 12:22 06/24/23 12:24 06/24/23 12:24 Temperature 99.2 F H 97.8 F Temperature Source Temporal Temporal Pulse Rate 63 115 H Respiratory Rate 22 H 20 H Respiratory Effort Short of Breath Respiratory Depth Shallow Respiratory Pattern Tachypnea Blood Pressure 102/46 L 113/72 Blood Pressure Mean 64 85 Pulse Ox 91 92 Oxygen Delivery Method Room Air Nasal Cannula Nasal Cannula Oxygen Flow Rate (L/min) 2 2 06/24/23 13:13 06/24/23 13:13 06/24/23 13:36 Temperature Temperature Source Pulse Rate 111 H 80 Respiratory Rate 26 H 26 H Respiratory Effort Respiratory Depth Respiratory Pattern Blood Pressure Blood Pressure Mean Pulse Ox 94 Oxygen Delivery Method Nasal Cannula Oxygen Flow Rate (L/min) 2 06/24/23 13:24 06/24/23 14:04 06/24/23 15:00 Temperature 97.8 F 97.8 F Temperature Source Temporal Temporal Pulse Rate 80 80 80 Respiratory Rate 20 H 30 H 16 Respiratory Effort Respiratory Depth Respiratory Pattern Blood Pressure 101/62 102/62 107/62 Blood Pressure Mean 75 75 77 Pulse Ox 92 95 94 Oxygen Delivery Method Nasal Cannula Nasal Cannula Oxygen Flow Rate (L/min) 2 2 Positive well nourished and well developed Constitutional Narrative: Patient does not appear well. He is slow to response. He may be slightly slower than normal according to family member. General Appearance ED: well developed; Negative for NAD or pallor HEENT Reports dry mucous membranes HEENT Narrative: Head is atraumatic and normocephalic. Ears are normal. Nares are patent. Posterior cricoid erythema or exudate. Mouth ED: Yes dry mucous membranes Mouth: dry mucous membranes Eyes PERRL and EOMs intact bilaterally General Eye ED: Negative for pale conjunctiva or scleral icterus Neck no lymphadenopathy, supple, no meningeal signs and no JVD Resp normal respiratory effort and No clear to auscultation bilaterally Auscultation: rales bilateral and diffuse and wheezes expiratory wheezes and throughout Cardio regular rate, regular rhythm, S1 normal heart sound and S2 normal heart sound; Negative for no murmurs Cardio Narrative: Patient has a grade 2/6 systolic murmur heard best at the left sternal border question of radiation into the axilla. GI non-tender, non-distended and no masses Auscultation: normoactive bowel sounds Palpation: soft Back/Spine no CVA tenderness and normal to inspection General Back: Negative for tenderness Extremity Negative for normal to inspection Extremity Narrative: Bilateral lymphedema. There is feces on his legs. Unable to palpate pulses because of the edema. General Extremety ED: Yes edema General Extremity: edema Neuro oriented x3, CN's II-XII intact bilaterally and no sensory deficits noted [place] Coma Scale: document GCS findings Spontaneous Obeys Commands Oriented 15 Sensorium / Orientation: Negative for alert Psych mental status grossly normal Thought Process: normal thought process Skin no wounds and No skin turgor normal General Skin Exam: Negative for jaundice or pallor MDM MDM MDM Narrative Medical decision making narrative: Patient has exasperate COPD versus pneumonia with bronchospasm. The exacerbated COPD may be due to a viral infection. In light of the fact that he has myalgias arthralgias with diarrhea and respiratory symptoms started yesterday will obtain rapid antigen for COVID, RSV and influenza. He was not vaccinated for RSV. He is not normally on oxygen. Doubt pneumothorax his breath sounds were noted bilaterally. EKG was obtained to rule out acute ischemic changes. CBC to assess white count and evaluate for anemia. Comprehensive metabolic panel was obtained with lactate to assess for endorgan dysfunction. History & Record Review Additional record(s) reviewed:: Prior inpatient record (Last. Admission February 2023.), Prior outpatient record (Numerous ER visits for COPD, abdominal distention. Did review Dr. Alvarez's H&P for February 2023.), Prior ED visit and Prior labs Lab Data Attestation: I reviewed the patient's lab results. Lab results narrative: White count is normal. Patient has chronic anemia. Comprehensive metabolic panel is marked for sodium 131 and a BUN/creatinine of 30 and 1.87 respectively. Estimated GFR is 37. Glucose slightly elevated 116. Lactate is 2. Transaminases are unremarkable. Labs: Laboratory Results - last 24 hr 06/24/23 06/24/23 13:00 14:00 WBC 8.7 RBC 4.18 L Hgb 11.9 L Hct 37.8 L MCV 90.4 MCH 28.5 MCHC 31.5 L RDW Std Deviation 53.8 H RDW Coeff of John 16.0 H Plt Count 214 MPV 10.0 Immature Gran % (Auto) 0.300 Neut % (Auto) 85.7 H Lymph % (Auto) 6.8 L [place] % (Auto) 6.9 Eos % (Auto) 0.0 Baso % (Auto) 0.3 Absolute Neuts (auto) 7.5 Absolute Lymphs (auto) 0.59 L Nucleated RBC % 0 Differential Comment SCANNED PT 15.8 H INR 1.3 APTT 32.9 Sodium Cancelled 131 L Potassium Cancelled 3.9 Chloride Cancelled 104 Carbon Dioxide Cancelled 22.0 Anion Gap Cancelled 5 BUN Cancelled 30 H Creatinine Cancelled 1.87 H Estim Creat Clear Calc Cancelled Est GFR (MDRD) Af Amer Cancelled 44 L Est GFR (MDRD) Non-Af Cancelled 37 L BUN/Creatinine Ratio Cancelled 16.0 Glucose Cancelled 116 H Lactic Acid 2.0 Calcium Cancelled 8.6 Total Bilirubin Cancelled 0.90 AST Cancelled 12 L ALT Cancelled 12 L Alkaline Phosphatase Cancelled 65 Total Protein Cancelled 7.0 Albumin Cancelled 2.6 L Globulin Cancelled 4.4 H Albumin/Globulin Ratio Cancelled 0.6 L Radiography Chest X-Ray - ED: Read by ED Physician (Single view chest x-ray reveals bilateral pneumonia right is much greater than left. This is independent reviewed interpreted by me at 1400.) Diagnostic Testing: Clinical Impression(s) from Imaging Studies Chest X-Ray 06/24/23 13:38 IMPRESSION: Bibasilar infiltrates worse on the right side with stable bilateral pleural plaque calcification. Electronically Signed: Antonio Kahn MD at 14:04 EST , EKG Initial EKG: Attestation: I personally reviewed and interpreted this EKG as follows: Interpretation: Paced (Rate is 120. This is a ventricular paced rhythm. There is artifact due to his labored breathing) Management Discussion w/another healthcare provider: Hospitalist (Hospitalist was made aware the patient's history, physical, laboratory results and imaging results. Patient be admitted to the MedSurg unit as a full admission.) Treatment and Re-Evaluation :: Delay in administering antibiotics because of acuity in department and patient require one-to-one care. In light of the x-ray findings will start on antibiotics for community-acquired pneumonia and patient require admission. Discharge Plan Dx/Rx/DC Orders Clinical Impression: Acute bronchospasm, Bilateral pneumonia, Acute exacerbation of chronic obstructive pulmonary disease, Iron deficiency anemia, Essential (primary) hypertension, HLD (hyperlipidemia), Hypothyroidism, Acute kidney injury Disposition Disposition: Acute Care Hospital [facility]
[2023-06-24] MEDS: Albuterol 2.5 MG/3 ML VIAL.NEB. INHALATION ×3 (13:10→13:35)
[2023-06-24] MEDS: Ipratropium/Albuterol Sulfate 3 ML AMPUL.NEB INHALATION ×3 (13:11→23:24)
[2023-06-24 13:27] LABS: Absolute Lymphocyte Count 0.59 X10^3/uL (0.83-4.51); Absolute Neutrophil Count 7.5 X10^3/uL (2.0-7.7); Basophil# 0.03 X10^3/uL; Basophil% 0.3 % (0-1); Hematocrit 37.8 % (40-54); Hemoglobin 11.9 g/dL (13.0-16.5); Lymphocyte # 0.59 X10^3/ul (0.83-4.51); Lymphocyte % 6.8 % (19-41); Mean Corp Hgb Conc 31.5 g/dL (32-36); Mean Corpuscular Hgb 28.5 pg (27.0-32.0); Mean Corpuscular Volume 90.4 fL (80-94); Monocyte% 6.9 % (0-10); NRBC Flagged by Analyzer 0 % (0-5); Neutrophil # 7.48 X10^3/uL (2.7-7.7); Neutrophil % 85.7 % (47-70); POSITIVE DIFFERENTIAL YES; POSITIVE MORPHOLOGY YES; Platelet Count 214 K/mm3 (150-450); RBC Distribution Width SD 53.8 fl (35.1-43.9); Red Blood Count 4.18 M/mm3 (4.6-6.2); White Blood Count 8.7 K/mm3 (4.4-11.0)
[2023-06-24 13:29] LABS: Differential Indicated SCAN CRITERIA MET
[2023-06-24 13:34] LABS: International Normalized Ratio 1.3; Prothrombin Time (Protime)PT. 15.8 SECONDS (11.7-14.9)
[2023-06-24 13:35] LABS: Partial Thromboplast Time 32.9 Seconds (24.1-36.2)
--- NOTE | 2023-06-24 13:38 | RAD_ITS ---
STUDY: X-RAY CHEST REASON FOR EXAM: Male, 82 years old. Cough, wheezing, hypoxia and rales bilateral TECHNIQUE: Single AP portable view of the chest. COMPARISON: Comparison is made with prior study March 14, 2023. FINDINGS: EKG electrodes are seen. Patchy bibasilar infiltrates worse on the right side as compared to prior study. Stable bilateral calcified pleural plaques. Normal size heart. A left-sided dual-chamber pacemaker is seen. Normal mediastinum and mamadou. Normal visualized pulmonary arteries. There is atherosclerotic calcification of the aortic arch with tortuosity. There are diffuse degenerative changes of the visualized thoracic spine. There is degenerative osteoarthritis of the bilateral shoulders. There is no demonstrated abnormality of the visualized soft tissue structures of the upper abdomen. RAD/Chest 1 View (Portable) IMPRESSION: Bibasilar infiltrates worse on the right side with stable bilateral pleural plaque calcification. Electronically Signed: Antonio Kahn MD at 14:04 EST ,
[2023-06-24] MEDS: 0.9% Normal Saline (1000mL) 1,000 ML 250 ML IV (13:41)
[2023-06-24] MEDS: MethylPREDNISolone 125 MG/2 ML Vial IV (13:41)
[2023-06-24 13:48] LABS: Differential Comment SCANNED
--- NOTE | 2023-06-24 13:49 | NURSING ---
needs a new green top
[2023-06-24 14:32] LABS: ALB/GLOB Ratio 0.6 RATIO (0.9-2.4); AST(SGOT) 12 U/L (15-37); Alanine Aminotransfer ALT/SGPT 12 U/L (16-61); Albumin, Serum 2.6 g/dL (3.2-5.0); Alkaline Phosphatase 65 U/L (45-117); Anion Gap 5 (5-15); BUN 30 mg/dL (7-18); Calcium,Total 8.6 mg/dL (8.5-10.1); Chloride 104 mmol/L (98-107); Creatinine, Serum 1.87 mg/dL (0.70-1.30); EST Glomerular Filtration Rate 37 mL/min (>60); Est Glom Filt Rate - Afr Amer 44 mL/min (>60); Globulin 4.4 g/dL (2.2-4.2); Glucose 116 mg/dL (74-106); Potassium 3.9 mmol/L (3.5-5.1); Sodium Level 131 mmol/L (136-145)
--- NOTE | 2023-06-24 16:23 | NURSING ---
MED SURG CLAUDIO BILATERAL PNEUMONIA, EXAC COPD WITH BRONCHOSPASM
--- NOTE | 2023-06-24 17:16 | PCM.HP.STD ---
HPI - General General Date of Admission: 06/24/23 Date of Service: 06/24/23 Chief Complaint: Shortness of breath HPI Narrative CARISSA VANG, is a 82 M with history of asthma, A-fib, CKD, gout, heart block with pacemaker, , hypertension, hypothyroidism who presented to [facility] ED 06/24/2023 for increasing shortness of breath, cough with white sputum, and chills over the past several days additionally with diarrhea. In ED he was 90% at rest on 2L of O2. Chest x-ray with bibasilar infiltrates worse on right side, it was deemed he had a community-acquired pneumonia and given need for O2 and overall clinical status hospitalist contacted for admission. Patient seen at bedside and endorsed the chills, cough with white sputum and increasing shortness of breath over the past several days he is also been very tired and weak. Has some chronic right lower extremity swelling but denies any other swelling, has had diarrhea along the same amount of time. On albuterol and Spiriva chronically and has been using these but continues to have shortness of breath. Denies any chest pain or other acute complaints. 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 Closed hip fracture Coronary heart disease Degenerative joint disease of knee, right Diverticulosis Diverticulosis Essential (primary) hypertension Failed fixation of fracture Gout Hay fever History of deep vein thrombosis of lower extremity HLD (hyperlipidemia) Hypothyroidism Iron deficiency anemia due to chronic blood loss Left ventricular diastolic dysfunction Leg wound, left Macular degeneration Non-pressure chronic ulcer of left calf with fat layer exposed Nonrheumatic aortic (valve) stenosis Osteoarthritis Pleural plaque Presence of cardiac pacemaker Pulmonary nodule Right knee DJD Secondary pulmonary arterial hypertension Skin cancer Traumatic open wound of right lower leg with infection Venous ulcer with fat layer exposed Home Medications epinephrine 0.3 mg/0.3 mL injection, auto-injector 0.3 mg IJ PRN ANAPHYLAXIS 12/04/18 [History Last Taken Unknown] multivitamin 1 tab PO QAM VITAMIN 04/19/19 [History Last Taken 03/12/23] fluticasone propionate 50 mcg/actuation nasal spray,suspension 2 spray intranasal DAILY ALLERGIES #16 grams 06/27/22 [Rx Last Taken 03/18/23] levothyroxine 75 mcg tablet 75 mcg PO DAILY THYROID #90 tabs 08/12/22 [Rx Last Taken 06/23/23] fluticasone propionate 230 mcg-salmeterol 21 mcg/actuation HFA inhaler 2 puff inhalation BID ASTHMA #1 device 08/23/22 [Rx Last Taken 03/12/23] montelukast 10 mg tablet 10 mg PO QPM ALLERGIES #30 tabs 09/27/22 [Rx Last Taken 06/19/23] ferrous sulfate 325 mg (65 mg iron) tablet (FeroSul) 325 mg PO DAILY SUPPLEMENT 11/29/22 [History Last Taken 06/23/23] nitroglycerin 0.4 mg sublingual tablet 0.4 mg sublingual Q5-15M PRN CHEST PAIN #25 tabs 12/02/22 [Rx Last Taken Unknown] famotidine 40 mg tablet 40 mg PO DAILY ACID REFLUX #90 tabs 01/02/23 [Rx Last Taken 06/23/23] albuterol sulfate 2.5 mg/3 mL (0.083 %) solution for nebulization 2.5 mg inhalation Q6H PRN SHORTNESS OF BREATH/WHEEZING 01/30/23 [History Last Taken 06/23/23] albuterol sulfate 90 mcg/actuation aerosol inhaler 2 puff inhalation Q4H PRN SHORTNESS OF BREATH/WHEEZING 03/12/23 [History Last Taken 06/23/23] tiotropium bromide 2.5 mcg/actuation mist for inhalation (Spiriva Respimat) 2 puff inhalation DAILY ASTHMA 03/12/23 [History Last Taken 06/23/23] Handicap placard #1 ea 03/17/23 [Rx Last Taken Unknown] acetaminophen 500 mg tablet 1,000 mg (2 x 500 mg) PO Q8 Pain #0 tabs 03/17/23 [Rx Last Taken 06/23/23] sertraline 100 mg tablet 100 mg PO DAILY DEPRESSION #90 tabs 04/08/23 [Rx Last Taken 06/23/23] menthol 0.44 %-zinc oxide 20.6 % topical ointment (Calmoseptine) 1 applic topical 4-6XD PRN skin irritation #113 grams 04/16/23 [Rx Last Taken Unknown] sennosides 8.6 mg-docusate sodium 50 mg tablet (Stool Softener-Stimulant Laxative) 1 tab PO BID PRN STOOL SOFTENER 06/02/23 [History Last Taken Unknown] Allergy/AdvReac Type Severity Reaction Status Date / Time indomethacin [From Indocin] AdvReac Intermediate Itching Verified 06/02/23 13:04 indomethacin sodium AdvReac Intermediate Itching Verified 06/02/23 13:04 [From Indocin] oxycodone HCl [From Percocet] AdvReac Intermediate Itching Verified 06/02/23 13:04 Family History Father Heart disease Colon cancer Sister Diabetes Mother Breast cancer Surgical History H/O hernia repair H/O prostatectomy H/O shoulder surgery H/O total knee replacement History of appendectomy History of appendectomy History of carpal tunnel surgery History of hernia repair History of left heart catheterization (02/25/22) History of prostatectomy History of total knee replacement History of total left hip replacement History of total left hip replacement Social History household members: spouse housing: house Smoking Status: Never smoker second hand exposure: Yes alcohol intake: current alcohol intake frequency: holidays/special occasions only Alcohol type: beer substance use type: does not use caffeine: Yes Type: coffee Number of servings: 2 what type of physical activity do you participate in: walking frequency: daily giancarlo/baptist: Evangelical seatbelt use: always do you feel safe at home: Yes ROS ROS Narrative General: Has had some chills HENT: Denies headache, denies stuffy nose, denies sore throat EYES: Denies changes in vision Resp: Cough with white sputum, increasing shortness of breath Cardiac: Denies chest pain GI: Denies abdominal pain, has been having diarrhea for several days, denies nausea/vomiting : Denies changes in urination Extremity: Some chronic right lower extremity swelling greater than left MSK: Generalized weakness Neuro: Denies any numbness/tingling Heme: Denies any bleeding or bruising Skin: Denies rashes Psychiatric: No complaints voiced Vital Signs Vital Signs Vital Signs: 06/24/23 12:22 06/24/23 12:24 06/24/23 12:24 Temperature 99.2 F H 97.8 F Temperature Source Temporal Temporal Pulse Rate 63 115 H Respiratory Rate 22 H 20 H Respiratory Effort Short of Breath Respiratory Depth Shallow Respiratory Pattern Tachypnea Blood Pressure 102/46 L 113/72 Blood Pressure Mean 64 85 Pulse Ox 91 92 Oxygen Delivery Method Room Air Nasal Cannula Nasal Cannula Oxygen Flow Rate (L/min) 2 2 06/24/23 13:13 06/24/23 13:13 06/24/23 13:36 Temperature Temperature Source Pulse Rate 111 H 80 Respiratory Rate 26 H 26 H Respiratory Effort Respiratory Depth Respiratory Pattern Blood Pressure Blood Pressure Mean Pulse Ox 94 Oxygen Delivery Method Nasal Cannula Oxygen Flow Rate (L/min) 2 06/24/23 13:24 06/24/23 14:04 06/24/23 15:00 Temperature 97.8 F 97.8 F Temperature Source Temporal Temporal Pulse Rate 80 80 80 Respiratory Rate 20 H 30 H 16 Respiratory Effort Respiratory Depth Respiratory Pattern Blood Pressure 101/62 102/62 107/62 Blood Pressure Mean 75 75 77 Pulse Ox 92 95 94 Oxygen Delivery Method Nasal Cannula Nasal Cannula Oxygen Flow Rate (L/min) 2 2 06/24/23 16:00 06/24/23 16:43 Temperature 97.6 F L 97.6 F L Temperature Source Temporal Pulse Rate 80 80 Respiratory Rate 20 H 16 Respiratory Effort Respiratory Depth Respiratory Pattern Blood Pressure 110/64 110/64 Blood Pressure Mean 79 79 Pulse Ox 96 96 Oxygen Delivery Method Nasal Cannula Oxygen Flow Rate (L/min) 2 Physical Exam Narrative General: Alert, oriented, no apparent distress HEENT: Atraumatic, normocephalic Eyes: Anicteric, normal conjunctiva, extraocular movements grossly intact Neck: Supple Respiratory: Increased respiratory effort and coarse bilaterally Cardiovascular: Regular rate GI: Soft, nontender, nondistended Extremities: Trace edema in right lower extremity greater than left Musculoskeletal: Moving all extremities Neuro: No overt focal neurological deficits Skin: Some scattered bruising Psych: Cooperative Results Lab / Micro Data 06/24/23 13:00 06/24/23 14:00 Labs: Laboratory Results - last 24 hr 06/24/23 13:00: WBC 8.7, RBC 4.18 L, Hgb 11.9 L, Hct 37.8 L, MCV 90.4, MCH 28.5, MCHC 31.5 L, RDW Std Deviation 53.8 H, RDW Coeff of John 16.0 H, Plt Count 214, MPV 10.0, Immature Gran % (Auto) 0.300, Neut % (Auto) 85.7 H, Lymph % (Auto) 6.8 L, Baxter % (Auto) 6.9, Eos % (Auto) 0.0, Baso % (Auto) 0.3, Absolute Neuts (auto) 7.5, Absolute Lymphs (auto) 0.59 L, Nucleated RBC % 0, Differential Comment SCANNED, PT 15.8 H, INR 1.3, APTT 32.9, Sodium Cancelled, Potassium Cancelled, Chloride Cancelled, Carbon Dioxide Cancelled, Anion Gap Cancelled, BUN Cancelled, Creatinine Cancelled, Estim Creat Clear Calc Cancelled, Est GFR (MDRD) Af Amer Cancelled, Est GFR (MDRD) Non-Af Cancelled, BUN/Creatinine Ratio Cancelled, Glucose Cancelled, Lactic Acid 2.0, Calcium Cancelled, Total Bilirubin Cancelled, AST Cancelled, ALT Cancelled, Alkaline Phosphatase Cancelled, Total Protein Cancelled, Albumin Cancelled, Globulin Cancelled, Albumin/Globulin Ratio Cancelled 06/24/23 14:00: Sodium 131 L, Potassium 3.9, Chloride 104, Carbon Dioxide 22.0, Anion Gap 5, BUN 30 H, Creatinine 1.87 H, Est GFR (MDRD) Af Amer 44 L, Est GFR (MDRD) Non-Af 37 L, BUN/Creatinine Ratio 16.0, Glucose 116 H, Calcium 8.6, Total Bilirubin 0.90, AST 12 L, ALT 12 L, Alkaline Phosphatase 65, Total Protein 7.0, Albumin 2.6 L, Globulin 4.4 H, Albumin/Globulin Ratio 0.6 L Micro: Microbiology 06/24/23 13:00 Mucosa - Nose SARS-CoV-2, Influenza & RSV (PCR) - Final Imaging Radiology Impression Chest X-Ray 06/24/23 13:38 IMPRESSION: Bibasilar infiltrates worse on the right side with stable bilateral pleural plaque calcification. Electronically Signed: Antonio Kahn MD at 14:04 EST , Assessment & Plan Assessment/Plan (1) Community acquired pneumonia: (2) Asthma: QUALIFIERS: Asthma severity: unspecified severity Asthma complication type: unspecified (3) CKD (chronic kidney disease): QUALIFIERS: Chronic kidney disease stage: stage 3 (moderate) Chronic kidney disease stage 3 subtype: stage 3b (GFR 30-44) Qualified Code(s): N18.32 - Chronic kidney disease, stage 3b (4) Essential (primary) hypertension: (5) GERD (gastroesophageal reflux disease): (6) Gout: (7) Hypothyroidism: (8) Severe aortic stenosis: (9) Presence of cardiac pacemaker: PLAN: Plan #Community-acquired pneumonia in setting of chronic COPD -Imaging: Chest x-ray with bibasilar infiltrates worse on right side -DuoNebs and as needed albuterol -Sputum culture, COVID and flu negative, respiratory panel ordered -Urine antigens -Mucinex, I/S -Rocephin and azithromycin -Budesonide inhalation BID w/ nebs #GRETA on CKD stage III unclear subtype -Creatinine 1.87 -Several months ago was 1.30 -Gentle hydration -Further lab workup and/or imaging if patient not improving the suspect this is secondary to his diarrhea # Diarrhea -Likely due to underlying infection however cannot rule out additional etiology -Will check stool studies -IVF # -Patient undergoing out patient evaluation for TAVR, supposed to have appointment today but this will be rescheduled -Daily weights, I's and O's -Follow-up outpatient #Hyponatremia -131, several months ago was 135 and appears intermittently to be low -Not presently having any symptoms -Possibly 2/2 dehydration given diarrhea -Will give gentle hydration #Hypothyroidism -Continue Synthroid #GERD -Continue famotidine #Depression -Cont sertraline #DVT ppx: Heparin subcu Jaleesa Cali MD Charges/Coding Visit Charges Inpatient E&M: 30092 Init Hosp L2
[2023-06-24 17:19] LABS: Reflex Lactate? Y
[2023-06-24 18:08] LABS: Lactic Acid 1.5 mmol/L (0.4-1.9)
[2023-06-24] MEDS: Budesonide Respules 0.5 MG/2 ML AMPUL.NEB. INHALATION (19:15)
--- OUTSIDE RECORDS SUMMARY | 2023-06-24 20:05 | XMS RPT_ITS | CCD ---
Author Name Unknown Address [address] [facility] [address] [place] [address] Organization [facility] Care Team Providers Care Partition Setter Name Role Phone BRODERICK, JAYRAM Attending Unavailable LAMBERT BENJAMIN Referring Unavailable BRODERICK, JAYRAM Admitting Unavailable BRODERICK, JAYRAM Attending Unavailable BRODERICK, JAYRAM Referring Unavailable STEPHANIE VERMA Attending Unavailable STEPHANIE VERMA Referring Unavailable BRODERICK, JAYRAM Attending Unavailable Lambert Benjamin Referring Unavailable Lambert Benjamin Primary Care Unavailable BRODERICK, JAYRAM Admitting Unavailable BRODERICK, JAYRAM Attending Unavailable Ric Lambert Primary Care Unavailable BRODERICK, JAYRAM Referring Unavailable Lambetr Benjamin Primary Care Unavailable Ke Garcia Primary Care Provider [phone] Allergies Allergy Classification Reported Allergen(s) Allergy Type Date of Onset Reaction(s) Facility (2 sources) Acetaminophen / oxyCODONE; Translations: [OXYCODONE-ACETAM INOPHEN] Drug Allergy 5 [facility] Repository (2 sources) Indomethacin; Translations: [INDOMETHACIN SODIUM] Drug Allergy 1 [facility] Repository (2 sources) Seasonal allergy; Translations: [SEASONAL ALLERGIES] Propensity to adverse reactions (disorder) 3 [facility] Repository (1 source) Indomethacin Drug Allergy 4 Itching [facility] (1 source) oxyCODONE Drug Allergy 4 Itching [facility] Problems Problem Classification Problem Date Documented Da te Episodic/Chronic Asthma (1 source) Asthma; Translations: [Unspecified asthma, uncomplicated] Onset: 06-10-2023 06-10-2023 Chronic Chronic kidney disease (1 source) Chronic kidney disease stage 3; Translations: [Chronic kidney disease (CKD), active medical management without dialysis, stage 3 (moderate)] Onset: 06-10-2023 06-10-2023 Chronic Deficiency and other anemia (1 source) Anemia; Translations: [Anemia, unspecified] Onset: 06-10-2023 06-10-2023 Episodic Disorders of lipid metabolism (1 source) Hyperlipidemia; Translations: [Hyperlipidemia, unspecified] Onset: 06-10-2023 06-10-2023 Chronic Essential hypertension (1 source) Essential hypertension; Translations: [Essential (primary) hypertension] Onset: 06-10-2023 06-10-2023 Chronic Heart valve disorders (1 source) Aortic valve stenosis; Translations: [Nonrheumatic aortic (valve) stenosis] Onset: 06-10-2023 06-10-2023 Chronic Hyperplasia of prostate (1 source) Benign prostatic hyperplasia without lower urinary tract symptoms; Translations: [Benign prostatic hyperplasia without lower urinary tract symptoms] Onset: 07-09-2018 Chronic Other male genital disorders (1 source) Disorder of penis, unspecified; Translations: [Disorder of penis, unspecified] Onset: 07-09-2018 Chronic Phlebitis; thrombophlebitis and thromboembolism (1 source) Deep venous thrombosis; Translations: [Acute embolism and thrombosis of unspecified deep veins of unspecified lower extremity] Onset: 06-10-2023 06-10-2023 Episodic Pulmonary heart disease (1 source) Pulmonary hypertension; Translations: [Pulmonary hypertension, unspecified] Onset: 06-10-2023 06-10-2023 Chronic Thyroid disorders (1 source) Hypothyroidism; Translations: [Hypothyroidism, unspecified] Onset: 06-10-2023 06-10-2023 Chronic Unclassified (2 sources) Benign prostatic hyperplasia without lower urinary tract symptoms Onset: 07-09-2018 Results Test Name Value Interpretation Reference Range Facil ity Encounters Encounter Date Encounter Type Care Provider Facility Start: 02-10-2023 Telephone encounter Aicha Willams CNP Work Phone: [facility] Plan of Treatment Date Care Activity Detail Author Start: 01-02-2032 DTaP/Tdap/Td Vaccines (3 - Td or Tdap) DTaP/Tdap/Td Vaccines (3 - Td or Tdap) [facility] Start: 06-24-2023 End: 06-24-2023 Patient encounter procedure [facility] Start: 01-17-2023 COVID-19 Vaccine ( season) COVID-19 Vaccine ( season) [facility] Start: 1998 RSV Immunization aged 60 or older (1 - 1-dose 60+ series) RSV Immunization aged 60 or older (1 - 1-dose 60+ series) [facility] Start: 1950 Depression Screening Depression Screening [facility] Start: 1938 Medicare Advantage Annual Wellness Visit (AWV) Medicare Advantage Annual Wellness Visit (AWV) [facility] Start: 1938 Thyroid stimulating hormone measurement TSH Level [facility] Payers Date Payer Category Payer Medicare [employer] MEDICARE ADVANTAGE [employer] MEDICARE [id number] 2018-Present [address] [address] [place] [address] Medicare HMO [id number] 1938 Unknown [id number] 1938 Unknown [id number] 1938 Unknown [id number] 1938 Unknown 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 [facility] Start: 06-10-2023 History of Social function [facility] Start: 06-10-2023 Tobacco use panel [facility] Start: 1940 Sex Assigned At Male S [facility] Start: 06-17-2023 Gender identity Identifies as male gender (finding) [facility] Start: 06-17-2023 Sexual orientation Heterosexual (fin ding) [facility] Telephone encounter Note 06-17-2023 Telephone Encounter - Keila Hannon - 06/17/2023 3:44 PM EST Note Date & Type Note Facility 06-17-2023 Telephone encounter Note Form atting of this note might be different from the original. I called Dr Garcia's office and and no recent visit since Jan. Those records inc cath report are scanned under Media. I faxed release to [facility] and requested the Echo disc and hospital reports. [facility] Note 06-17-2023 Telephone Encounter - Keila Hannon - 06/17/2023 3:44 PM ESTTelephone Encounter - Seema Larkin RN - 02/10/2023 4:05 PM EDTTelephone Encounter - Seema Larkin RN - 02/10/2023 3:52 PM EDT Note Date & Type Note Facility 06-17-2023 Miscellaneous Notes Formattin g of this note might be different from the original. I called Dr Garcia's office and and no recent visit since Jan. Those records inc cath report are scanned under Media. I faxed release to [facility] and requested the Echo disc and hospital reports. Jacey returned call. Pt currently is an inpt @ [facility], pt fell last Fri, hip fracture, currently hospitalized after hip surgery w/ tentative plans for inpt rehab. I provided w/ [facility] phone # to call once pt is out of rehab and back home. unclear if Dr. Garcia's office is aware of current pt status, I spoke w/ Sherin in Dr. Garcia's office gave update. Received fax referral from Dr. Garcia. Spoke w/son Jer, asked for a return call from pt to arrange [facility] appt. documented in this encounter [facility] Clinical Note 02-10-2023 Note Date & Type Note Facility 02-10-2023 Note Received fax referra l from Dr. Garcia. Spoke w/son Jer, asked for a return call from pt to arrange [facility] appt. [facility] Telephone encounter Note 02-10-2023 Telephone Encounter - Seema Larkin RN - 02/10/2023 4:05 PM EDT Note Date & Type Note Facility 02-10-2023 Telephone encounter Note Form atting of this note might be different from the original. Jacey returned call. Pt currently is an inpt @ [facility], pt fell last Fri, hip fracture, currently hospitalized after hip surgery w/ tentative plans for inpt rehab. I provided w/ [facility] phone # to call once pt is out of rehab and back home. unclear if Dr. Garcia's office is aware of current pt status, I spoke w/ Sherin in Dr. Garcia's office gave update. [facility] Telephone encounter Note 02-10-2023 Telephone Encounter - Seema Larkin RN - 02/10/2023 3:52 PM EDT Note Date & Type Note Facility 02-10-2023 Telephone encounter Note Form atting of this note might be different from the original. Received fax referral from Dr. Garcia. Spoke w/son Jer, asked for a return call from pt to arrange [facility] appt. [facility] Summary Purpose Family History No Family History Records FoundNo Family History Records FoundNo Family History Records FoundNo Family History Records Found Advance Directives No Advanced Directives Records FoundNo Advanced Directives Records FoundNo Advanced Directives Records FoundNo Advanced Directives Records Found Hospital Course Note HNO ID: [id number] Author: Cisco Marrero Service: Urology Author Type: Physician Type: Discharge Summaries Filed: 07/09/2018 10:02 AM Note Text: DISCHARGE SUMMARY PATIENT NAME: London Yip Code Status: Not on file Highest Readmission Risk Score: 9 The 30 day readmissions risk score is derived from an internally validated risk model which evaluates patient level characteristics, utilization history, medication orders and lab results up until the day of discharge. Patients with a score of 40 or above are considered highest risk for readmission. Specific patient level drivers will be listed at the bottom of the summary. Additional Provider to Provider Information: No notes on file Transitions of Care Critical Issues: F/U with me next week in [place] LABS AND PROCEDURES PENDING AT DISCHARGE: Biopsy Results (penile lesion) Ruled Out FOLLOW-UP APPOINTMENTS ALREADY SCHEDULED WITH A [facility] PROVIDER: Future Appointments Date Time Provider Department Center 07/31/2018 1 (more content not included)... Additional Source Comments (unrecognized sect ion and content) No Status Records FoundNo Status Records FoundNo Status Records FoundNo Status Records Found INFORMATION SOURCE (unrecogn ized section and content) DATE CREATED AUTHOR AUTHOR'S ORGANIZ ATION 07/22/2018 [facility] DATE CREATED AUTHOR AUTHOR'S ORGANIZ ATION 03/28/2022 [facility] DATE CREATED AUTHOR AUTHOR'S ORGANIZ ATION 06/22/2023 [facility] Reason for Visit (unrecogniz ed section and content) Care Teams (unrecognized sec tion and content) FOR RECORDS PERTAINING TO PATIENTS WHO ARE OR HAVE BEEN ENROLLED IN A CHEMICAL DEPENDENCY/SUBSTANCEABUSE PROGRAM, SOME INFORMATION MAY BE OMITTED. This clinical summary was aggregated from multiple sources. Caution should be exercised in using it in the provision of clinical care. This summary normalizes information from multiple sources, and as a consequence, information in this document may materially change the coding, format and clinical context of patient data. In addition, data may be omitted in some cases. CLINICAL DECISIONS SHOULD BE BASED ON THE PRIMARY CLINICAL RECORDS. [employer] provides no warranty or guarantee of the accuracy or completeness of information in this document.
--- OUTSIDE RECORDS SUMMARY | 2023-06-24 20:17 | XMS RPT_ITS | CCD ---
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 Name Role Phone BRODERICK, JAYRAM Attending Unavailable LAMBERT BENJAMIN Referring Unavailable BRODERICK, JAYRAM Admitting Unavailable BRODERICK, JAYRAM Attending Unavailable BRODERICK, JAYRAM Referring Unavailable STEPHANIE VERMA Attending Unavailable STEPHANIE VERMA Referring Unavailable BRODERICK, JAYRAM Attending Unavailable Lambert Benjamin Referring Unavailable Lambert Benjamin Primary Care Unavailable BRODERICK, JAYRAM Admitting Unavailable BRODERICK, JAYRAM Attending Unavailable Ric Lambert Primary Care Unavailable BRODERICK, JAYRAM Referring Unavailable Lambert Benjamin Primary Care Unavailable Ke Garcia Primary Care Provider [phone] Allergies Allergy Classification Reported Allergen(s) Allergy Type Date of Onset Reaction(s) Facility (2 sources) Acetaminophen / oxyCODONE; Translations: [OXYCODONE-ACETAM INOPHEN] Drug Allergy 5 [facility] Repository (2 sources) Indomethacin; Translations: [INDOMETHACIN SODIUM] Drug Allergy 1 [facility] Repository (2 sources) Seasonal allergy; Translations: [SEASONAL ALLERGIES] Propensity to adverse reactions (disorder) 3 [facility] Repository (1 source) Indomethacin Drug Allergy 4 [...] Telephone encounter Aicha Willams CNP Work Phone: [facility]iology Plan of Treatment Date Care Activity Detail Author Start: 01-02-2032 DTaP/Tdap/Td Vaccines (3 - Td or Tdap) DTaP/Tdap/Td Vaccines (3 - Td or Tdap) [facility] Start: 06-24-2023 End: 06-24-2023 Patient encounter procedure [facility] Start: 01-17-2023 COVID-19 Vaccine ( season) COVID-19 Vaccine ( season) [facility] Start: 1998 RSV Immunization aged 60 or older (1 - 1-dose 60+ series) RSV Immunization aged 60 or older (1 - 1-dose 60+ series) [facility] Start: 1950 Depression Screening Depression Screening [facility] Start: 1940 Medicare Advantage Annual Wellness Visit (AWV) Medicare Advantage Annual Wellness Visit (AWV) [facility] Start: 1940 Thyroid stimulating hormone measurement TSH Level [facility] Payers Date Payer Category Payer Medicare [employer] MEDICARE ADVANTAGE [employer] MEDICARE [id number] 2018-Present [address] [address] [place] [address] Medicare HMO [id number] 1938 Unknown [id number] 1938 Unknown [id number] 1938 Unknown [id number] 1938 Unknown 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 [facility] Start: 06-10-2023 History of Social function [facility] Start: 06-10-2023 Tobacco use panel [facility] Start: 1940 Sex Assigned At Male [facility] Start: 06-17-2023 Gender identity Identifies as male gender (finding) [facility] Start: 06-17-2023 Sexual orientation Heterosexual (fin ding) [facility] Telephone encounter Note 06-17-2023 Telephone Encounter - Keila Hannon - 06/17/2023 3:44 PM EST Note Date & Type Note Facility 06-17-2023 Telephone encounter Note Form atting of this note might be different from the original. I called Dr Garcia's office and and no recent visit since Jan. Those records inc cath report are scanned under Media. I faxed release to [facility] and requested the Echo disc and hospital reports. [facility] Note 06-17-2023 Telephone Encounter - Keila [...] scanned under Media. I faxed release to [facility] and requested the Echo disc and hospital reports. Jacey returned call. Pt currently is an inpt @ [facility], pt fell last Fri, hip fracture, currently hospitalized after hip surgery w/ tentative plans for inpt rehab. I provided w/ [facility] phone # to call once pt is out of rehab and back home. unclear if Dr. Garcia's office is aware of current pt status, I spoke w/ Sherin in Dr. Garcia's office gave update. Received fax referral from Dr. Garica. Spoke w/son Jer, asked for a return call from pt to arrange [facility] appt. documented in this encounter [facility] Clinical Note 02-10-2023 Note Date & Type Note Facility 02-10-2023 Note Received fax referra l from Dr. Garcia. Spoke w/son Jer, asked for a return call from pt to arrange [facility] appt. [facility] Telephone encounter Note 02-10-2023 Telephone Encounter - Seema Larkin RN - 02/10/2023 4:05 PM EDT Note Date & Type Note Facility 02-10-2023 Telephone encounter Note Form atting of this note might be different from the original. Jacey returned call. Pt currently is an inpt @ [facility], pt fell last Fri, hip fracture, currently hospitalized after hip surgery w/ tentative plans for inpt rehab. I provided w/ [facility] phone # to call once pt is out of rehab and back home. unclear if Dr. Garcia's office is aware of current pt status, I spoke w/ Sherin in Dr. Garcia's office gave update. [facility] Telephone encounter Note 02-10-2023 Telephone Encounter - Seema Larkin RN - 02/10/2023 3:52 PM EDT Note Date & Type Note Facility 02-10-2023 Telephone encounter Note Form atting of this note might be different from the original. Received fax referral from Dr. Garcia. Spoke w/son Jer, asked for a return call from pt to arrange [facility] appt. [facility] Summary Purpose Family History No Family History Records FoundNo Family History Records FoundNo Family History Records FoundNo Family History Records Found Advance Directives No Advanced Directives Records FoundNo Advanced Directives Records FoundNo Advanced Directives Records FoundNo Advanced Directives Records Found Hospital Course Note HNO ID: [id number] Author: Cisco Marrero Service: Urology Author Type: [...] Issues: F/U with me next week in [place] LABS AND PROCEDURES PENDING AT DISCHARGE: Biopsy Results (penile lesion) Ruled Out FOLLOW-UP APPOINTMENTS ALREADY SCHEDULED WITH A [facility] PROVIDER: Future Appointments Date Time Provider Department Center 07/31/2018 1 (more content not included)... Additional Source Comments (unrecognized sect ion and content) No Status Records FoundNo Status Records FoundNo Status Records FoundNo Status Records Found INFORMATION SOURCE (unrecogn ized section and content) DATE CREATED AUTHOR AUTHOR'S ORGANIZ ATION 07/22/2018 [facility] [employer] [facility] DATE CREATED AUTHOR AUTHOR'S ORGANIZ ATION 03/28/2022 [facility] DATE CREATED AUTHOR AUTHOR'S ORGANIZ ATION 06/22/2023 [facility] Reason for Visit (unrecogniz ed section [...] BE BASED ON THE PRIMARY CLINICAL RECORDS. [employer] provides no warranty or guarantee of the accuracy or completeness of information in this document.
[2023-06-24] MEDS: Azithromycin 500 MG in Dextrose 5%-Water (250mL Bag) 250 ML 250 MG IV (20:39)
[2023-06-24] MEDS: 0.9% Normal Saline (1000mL) 1,000 ML 50 ML IV (20:39)
[2023-06-24] MEDS: Ceftriaxone 2 GM in 0.9% Normal Saline (50mL MB+) 50 ML IV (20:39)
[2023-06-24] MEDS: Heparin Injection (Vial) 5,000 UNIT/ML VIAL 5000 UNIT SC (22:24)
[2023-06-24] MEDS: guaiFENesin 1,200 MG Tablet 1200 MG PO (22:24)
[2023-06-25] VITALS (10 sets, daily range): BP systolic 107–118; BP diastolic 61–76; PULSE 86–96; RESP 18–24; TEMP 36.6–37.1; O2SAT 94–99
[2023-06-25] MEDS: Ipratropium/Albuterol Sulfate 3 ML AMPUL.NEB INHALATION ×5 (03:37→23:10)
[2023-06-25 04:46] LABS: Mucous, Urine 0 SEEN /hpf (<or=2+); Red Blood Cells-Urine 0 SEEN /hpf (0-5)
[2023-06-25 04:52] LABS: Color, Urine Yellow (Yellow); Glucose, Dipstick Normal (Normal); Ketone-Dipstick Negative (Negative); Leukocyte Esterase-Dipstick 25 /ul (Negative); Nitrite-Dipstick Negative (Negative); Occult Blood-Urine Negative /ul (Negative); Protein-Dipstick 15 mg/dl (Negative); Urine Bilirubin Dipstick Negative (Negative); Urine Clarity Clear (Clear); Urine Urobilinogen Normal (Normal)
[2023-06-25 05:03] LABS: Bacteria 2+ /hpf (None Seen); Squamous Epithelial Cells - UA 5-10 SEEN /hpf (0-5); Trichomonas 0 SEEN /hpf (None Seen); White Blood Cells 5-10 SEEN /hpf (0-5)
--- NOTE | 2023-06-25 06:07 | PCM.PN.HOSP ---
Reason for Visit Reason for Visit: Diagnoses Hypothyroidism, unspecified (06/24/23) Essential (primary) hypertension (06/24/23) Nonrheumatic aortic (valve) stenosis (06/24/23) Pneumonia, unspecified organism (06/24/23) Unspecified asthma, uncomplicated (06/24/23) Gastro-esophageal reflux disease without esophagitis (06/24/23) Gout, unspecified (06/24/23) Chronic kidney disease, stage 3b (06/24/23) Presence of cardiac pacemaker (06/24/23) Subjective Subjective The patient is an 82 y/o M w/ PMHx: HTN, HLD, Hx Heart Complete Block, Valvular Heart Disease, Chronic normocytic anemia/AOCD/Fe deficiency anemia, Hypothyroidism, Gout, Hx VTE w/ DVT, COPD/Asthma, PAF/Flutter, CKD stage III, CAD who presents to the [facility] ED on 06/24/23 with history of increasing dyspnea, wheezing, cough productive of white sputum with chills without specific fever with loose stools over the last several days prompting eventual ED evaluation. Patient had noted increased fatigue and lethargy. He noted unchanged chronic right lower extremity swelling. Workup in the ED included T97.8, heart rate initially 115, respiratory rate 20, BP 113/72, respiratory rate 92 on 2 L nasal cannula, CBC with WBC 8.7, hemoglobin 1.9, MCV 90.4, platelet 214 with lymphopenia, coags with PT 15.8 otherwise unremarkable, CMP with sodium 131, BUN/creatinine 30/1.7, glucose 116, hepatic profile not marked appearing, chest x-ray with bibasilar infiltrates worse on the right side with stable bilateral pleural plaque calcification, blood culture x 2 pending per ED, rapid SARS COVID/influenza/RSV PCR negative. In the ED patient ministered NS IV fluids, DuoNeb and Solu-Medrol 125 mg IV x 1. Overnight patient blood pressure remains low normal and patient was continued on 2 L nasal cannula. Upon evaluation today he notes feeling remarkably improved since his initial ED evaluation. He notes breathing with a greater ease is moving in the bed without difficulty. Patient is very talkative and seems to have more energy. Patient does report still some coughing. Patient denies fevers, chills, nausea, emesis, abdominal pain, chest pain or worsening dyspnea. Objective Data Objective Data Vital Signs: Vital Signs Temp Pulse Resp BP Pulse Ox O2 Del Method O2 Flow Rate 99.2 F H 86 20 H 96/62 97 Nasal Cannula 2 06/24/23 19:02 06/25/23 03:38 06/25/23 03:38 06/24/23 19:02 06/24/23 19:10 06/25/23 02:00 06/25/23 02:00 Oxygen Flow Rate (L/min) 2 Oxygen Delivery Method Nasal Cannula Weight: 166 lb 9.3 oz Body Mass Index (BMI) 25.3 Intake & Output: Intake and Output for Last 24 Hours 06/23/23 06/24/23 06/25/23 23:59 23:59 23:59 Intake Total 1305 / 1305 Balance 1305 / 1305 Lab / Micro Data 06/25/23 06:56 06/25/23 06:56 Labs: Laboratory Results - last 24 hr 06/24/23 13:00: WBC 8.7, RBC 4.18 L, Hgb 11.9 L, Hct 37.8 L, MCV 90.4, MCH 28.5, MCHC 31.5 L, RDW Std Deviation 53.8 H, RDW Coeff of John 16.0 H, Plt Count 214, MPV 10.0, Immature Gran % (Auto) 0.300, Neut % (Auto) 85.7 H, Lymph % (Auto) 6.8 L, Mingo % (Auto) 6.9, Eos % (Auto) 0.0, Baso % (Auto) 0.3, Absolute Neuts (auto) 7.5, Absolute Lymphs (auto) 0.59 L, Nucleated RBC % 0, Differential Comment SCANNED, PT 15.8 H, INR 1.3, APTT 32.9, Sodium Cancelled, Potassium Cancelled, Chloride Cancelled, Carbon Dioxide Cancelled, Anion Gap Cancelled, BUN Cancelled, Creatinine Cancelled, Estim Creat Clear Calc Cancelled, Est GFR (MDRD) Af Amer Cancelled, Est GFR (MDRD) Non-Af Cancelled, BUN/Creatinine Ratio Cancelled, Glucose Cancelled, Lactic Acid 2.0, Calcium Cancelled, Total Bilirubin Cancelled, AST Cancelled, ALT Cancelled, Alkaline Phosphatase Cancelled, Total Protein Cancelled, Albumin Cancelled, Globulin Cancelled, Albumin/Globulin Ratio Cancelled 06/24/23 14:00: Sodium 131 L, Potassium 3.9, Chloride 104, Carbon Dioxide 22.0, Anion Gap 5, BUN 30 H, Creatinine 1.87 H, Est GFR (MDRD) Af Amer 44 L, Est GFR (MDRD) Non-Af 37 L, BUN/Creatinine Ratio 16.0, Glucose 116 H, Calcium 8.6, Total Bilirubin 0.90, AST 12 L, ALT 12 L, Alkaline Phosphatase 65, Total Protein 7.0, Albumin 2.6 L, Globulin 4.4 H, Albumin/Globulin Ratio 0.6 L 06/24/23 17:30: Lactic Acid 1.5 06/25/23 04:30: Urine Color Yellow, Urine Clarity Clear, Urine pH 5.0, Ur Specific Dillingham 1.020, Urine Protein 15 H, Urine Glucose (UA) Normal, Urine Ketones Negative, Urine Occult Blood Negative, Urine Nitrite Negative, Urine Bilirubin Negative, Urine Urobilinogen Normal, Ur Leukocyte Esterase 25 H, Urine RBC 0 SEEN, Urine WBC 5-10 SEEN, Ur Squamous Epith Cells 5-10 SEEN, Urine Bacteria 2+, Urine Mucus 0 SEEN, Urine Trichomonas 0 SEEN Micro: Microbiology 06/25/23 04:30 Stool Clostridioides difficile (PCR) - Final 06/24/23 19:10 Mucosa - Nasopharyngeal Respiratory Panel (PCR) - Final 06/24/23 13:00 Mucosa - Nose SARS-CoV-2, Influenza & RSV (PCR) - Final Radiography Diagnostic Testing: Radiology Impression Chest X-Ray 06/24/23 13:38 IMPRESSION: Bibasilar infiltrates worse on the right side with stable bilateral pleural plaque calcification. Electronically Signed: Antonio Kahn MD at 14:04 EST , Physical Exam Narrative Physical Examination: General: Awake, alert, oriented x 3 and cooperative, seated upright in MS bed in no apparent distress, notes feeling improved. Skin: Normal color, normal turgor, no icterus, no cyanosis except occasional staged ecchymoses, abrasion. HEENT: AT/NC, EOMI, PERRLA, MMM. Lungs: Diminsihed, > bases, mild coarse BL bases, appropriate effort, no respiratory distress evidence, no rales or wheezing. Heart: Regular rate and rhythm; no gallop, rub audible. Abdomen: Soft, NTTP, ND, normal BS. Extremities: No cyanosis, no clubbing, mild chronic RLE not markedly pitting ankle-distal cota edema. Neurological: Patient awake, alert, oriented as noted, cognitive function intact; pupils equally reactive to light and accommodation, cranial nerves grossly normal, moving all 4 extremities, no focal deficits, strength improving, moderately globally decreased. Psychiatric: Affect appears improved, talkative, normal, no acute evidence of depressive or anxiety feelings. Assessment & Plan Assessment/Plan (1) Community acquired pneumonia: PLAN: Plan The patient is an 82 y/o M w/ PMHx: HTN, HLD, Hx Heart Complete Block, Valvular Heart Disease, Chronic normocytic anemia/AOCD/Fe deficiency anemia, Hypothyroidism, Gout, Hx VTE w/ DVT, COPD/Asthma, PAF/Flutter, CKD stage III, CAD who presents to the [facility] ED on 06/24/23 with history of increasing dyspnea, wheezing, cough productive of white sputum with chills without specific fever with loose stools over the last several days prompting eventual ED evaluation. 1. Acute Hypoxia secondary to Community Acquired BL Pneumonia in the setting of Chronic COPD/Asthma w/ allergic rhinitis w/ concurrent diarrhea: Admitted to [place], will maintain on oxygen with wean as tolerated to room air, continue ATC duonebs, ATC budesonide, PRN albuterol, maintained on IV Rocephin and Azithromycin, HOB, IS parameters w/ requested sputum cultures and urine antigens, full respiratory viral panel negative, stool studies requested w/ pending enteric and negative c-diff. Bld cx x 2 obtained in the ED. 2. GRETA on Chronic Kidney Disease Stage III, unclear subtype: Admission BUN/Cr 30/1.87, baseline renal function primarily 1.1-1.4 02/2023 however prior to this baseline appeared 1.3-1.9 thus creatinine has certainly vacillated, suspect more GRETA on chronic especially given reported GI losses, continue judicious hydration, holding nephrotoxic regimen, 06/25/23 BUN/Cr 38/1.67. 3. Acute on Chronic Hyponatremia, mild, likely hypovolemic component with GI losses: Admission Na 131, baseline mid 130 range, will continue judicious hydration, 06/25/23 Na 133, continue to trend. 4. Chronic normocytic anemia/AOCD/Fe deficiency anemia: Admission: 11.9, MCV 90.4, baseline hemoglobin previously 8-9 however this was in 02/2023 likely during admission but more recently 03/26/23 repeat hemoglobin 10.6, 06/25/2023 hemoglobin 9.0, suspect that this is more his baseline, will trend again and if in a.m. further decreases low threshold to obtain guaiac, iron panel, ferritin and involve GI if appropriate. Continue Fe supplementation. 5. Valvular Heart Disease: Per patient ongoing evaluation for upcoming TAVR consideration, monitor for overload given IVFs as noted given GRETA, diarrhea, encourage update to his Cardiac/CT team. 6. PAF: Per current list not on rate or rhythm agent, not chronically anticoagulated per current list. 7. CAD: Will continue asa, not on statin therapy, not on any hypertensive regimen nor any rate or rhythm agents given underlying 8. PAF concurrently status post pacemaker placement. 9. Hypothyroidism: We will continue patient on Synthroid regimen. 10. Hypertension: Noted chart reported history, not on agent, continue to monitor, add if appropriate. 11. Hyperlipidemia: Per current list not on statin therapy, defer to outpatient. 12. GERD: Will continue home famotidine regimen; however, if renal function worsening will alter regimen. 13. Hx Complete Heart Block: s/p pacemaker status. 14. Anxiety and Depression: Will continue home sertraline regimen; however, if renal function worsening will alter regimen. 15. Hx VTE: Noted history of DVT, not chronically anticoagulated currently. 16. DVT prophylaxis: Heparin. 17. CODE status: Full Code. Charges/Coding Visit Charges Inpatient E&M: 33183 Subs Hosp L2
[2023-06-25] MEDS: Levothyroxine 75 MCG Tablet PO (06:34)
[2023-06-25] MEDS: Budesonide Respules 0.5 MG/2 ML AMPUL.NEB. INHALATION ×2 (06:56→19:41)
[2023-06-25 08:10] LABS: Absolute Lymphocyte Count 0.22 X10^3/uL (0.83-4.51); Absolute Neutrophil Count 5.6 X10^3/uL (2.0-7.7); Hematocrit 28.4 % (40-54); Lymphocyte # 0.22 X10^3/ul (0.83-4.51); Lymphocyte % 3.6 % (19-41); Mean Corp Hgb Conc 31.7 g/dL (32-36); Mean Corpuscular Hgb 28.5 pg (27.0-32.0); Mean Corpuscular Volume 89.9 fL (80-94); Mean Platelet Vol. 10.5 fl (6.2-12.0); Monocyte# 0.31 X10^3/uL; Monocyte% 5.1 % (0-10); NRBC Flagged by Analyzer 0 % (0-5); Neutrophil # 5.57 X10^3/uL (2.7-7.7); POSITIVE DIFFERENTIAL YES; Platelet Count 165 K/mm3 (150-450); RBC Distribution Width CV 15.9 % (11.6-14.6); RBC Distribution Width SD 52.1 fl (35.1-43.9); Red Blood Count 3.16 M/mm3 (4.6-6.2); White Blood Count 6.1 K/mm3 (4.4-11.0)
[2023-06-25 08:40] LABS: ALB/GLOB Ratio 0.5 RATIO (0.9-2.4); AST(SGOT) 11 U/L (15-37); Alanine Aminotransfer ALT/SGPT 10 U/L (16-61); Albumin, Serum 2.3 g/dL (3.2-5.0); Alkaline Phosphatase 59 U/L (45-117); Anion Gap 6 (5-15); BUN 38 mg/dL (7-18); BUN/Creat Ratio 22.8 RATIO (10-20); Calcium,Total 7.8 mg/dL (8.5-10.1); Chloride 107 mmol/L (98-107); Creatinine, Serum 1.67 mg/dL (0.70-1.30); EST Glomerular Filtration Rate 42 mL/min (>60); Est Glom Filt Rate - Afr Amer 51 mL/min (>60); Estimated Creatinine Clearance 31.86 ml/min; Globulin 4.2 g/dL (2.2-4.2); Glucose 151 mg/dL (74-106); Potassium 3.5 mmol/L (3.5-5.1); Protein, Total 6.5 g/dL (6.4-8.2); Sodium Level 133 mmol/L (136-145); Thyroid Stim Hormone (TSH) 3.16 uIU/mL (0.358-3.74)
[2023-06-25] MEDS: Heparin Injection (Vial) 5,000 UNIT/ML VIAL 5000 UNIT SC ×2 (09:42→21:10)
[2023-06-25] MEDS: guaiFENesin 1,200 MG Tablet 1200 MG PO ×2 (09:42→21:11)
[2023-06-25] MEDS: Sertraline 100 MG Tablet PO (09:42)
[2023-06-25] MEDS: Famotidine 20 MG Tablet 40 MG PO (09:42)
--- NOTE | 2023-06-25 11:10 | CASEMGMT ---
ROSY MEDEL Face to Face with patient for initial transition planning/care coordination assessment. RN LIZY introduced self and role at [facility]. Patient sitting in chair, alert and oriented. Patient willing to participate in assessment and is able to answer all questions appropriately. Care providers, pharmacy, and demographics verified. Patient wishes to discharge home, denies need for home health at this time, will monitor progress with therapy. Patient states he has no further needs or concerns at this time. CM to follow for discharge planning needs that may arise. 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 Patient states he is independent at home. Transportation: , son DME/HHC: Patient has shower chair, raised toilet, cane, grab bars, walker, nebulizer, power WC at home. Patient has been to TCU in the past. Patient has had [facility] in the past. Disposition Plan: Patient to discharge home with family support and follow-up plans in place. Helen BEAVERS, RN, CM
[2023-06-25] MEDS: Ferrous Sulfate 325 MG Tablet PO (12:36)
--- NOTE | 2023-06-25 14:28 | CHAPLAIN ---
Type of Pastoral Visit _x__ Initial Visit ___ Follow-up Visit ___ On-call Visit ___ General Patient Visit ___ Spiritual Assessment ___ Family Conference ___ Bereavement ___ Rapid Response ___ Code Blue ___ Other (describe below) Pastoral Care Referral From _x__ Patient ___ Family ___ Nurse ___ Physician ___ Sales Representative Graphic Art ___ Horse Groomer ___ Other (describe below) Sacrament/Intervention _x__ Active listening ___ Anointing ___ Jew ___ Bereavement ___ Communion _x__ Galina exploration ___ _x__ Life review _x__ Prayer ___ Reconciliation ___ Sacrament of Sick ___ Supportive presence ___ Wedding ___ Other (describe below) Pastoral Comments patient has been seen before but the patient does not remember this gym instructor on this occasion; pt is very talkative and explains his last several months of health issues; pt expresses his galina in God and how that makes a huge difference for him; pt is pleasant and asks about the gym instructor; pt welcomes presence and prayers
[2023-06-25] MEDS: 0.9% Saline Lock 10 ML Syringe IV ×2 (14:41→21:10)
[2023-06-25] MEDS: Ceftriaxone 2 GM in 0.9% Normal Saline (50mL MB+) 50 ML IV (21:06)
[2023-06-25] MEDS: Azithromycin 500 MG in Dextrose 5%-Water (250mL Bag) 250 ML 250 MG IV (21:13)
[2023-06-25] MEDS: Menthol/Lanolin/Calamine/Znox 113 GM Tube 1 APPLIC TOPICAL (21:21)
[2023-06-26] VITALS (7 sets, daily range): BP systolic 109–135; BP diastolic 63–80; PULSE 63–100; RESP 16–20; TEMP 36.4–36.8; O2SAT 94–98; BMI 25.3
[2023-06-26] MEDS: Ipratropium/Albuterol Sulfate 3 ML AMPUL.NEB INHALATION ×3 (02:51→11:08)
[2023-06-26] MEDS: Levothyroxine 75 MCG Tablet PO (05:47)
--- NOTE | 2023-06-26 06:03 | PCM.PN.HOSP ---
Reason for Visit Reason for Visit: Diagnoses Hypothyroidism, unspecified (06/24/23) Essential (primary) hypertension (06/24/23) Nonrheumatic aortic (valve) stenosis (06/24/23) Pneumonia, unspecified organism (06/24/23) Unspecified asthma, uncomplicated (06/24/23) Gastro-esophageal reflux disease without esophagitis (06/24/23) Gout, unspecified (06/24/23) Chronic kidney disease, stage 3b (06/24/23) Presence of cardiac pacemaker (06/24/23) Subjective Subjective Patient overnight did report some mild dyspnea complaints but his oxygenation remains appropriate, more supplemental oxygen but is off this a.m. and is ambulated with appropriate saturations without oxygen supplementation. He does report that occasionally he uses oxygen at night. Patient notes breathing is improved, less coughing, more active and less fatigued. Discussed possible discharge concept and patient is amenable and eager for discharge. Patient denies fevers, chills, nausea, emesis, abdominal pain, chest pain. Objective Data Objective Data Vital Signs: Vital Signs Temp Pulse Resp BP Pulse Ox O2 Del Method O2 Flow Rate 98 F 83 20 H 120/72 98 Room Air 2 06/26/23 02:35 06/26/23 02:52 06/26/23 02:52 06/26/23 02:35 06/26/23 02:35 06/26/23 02:35 06/26/23 02:35 Oxygen Flow Rate (L/min) 2 Oxygen Delivery Method Room Air Weight: 166 lb 9.3 oz Body Mass Index (BMI) 25.3 Intake & Output: Intake and Output for Last 24 Hours 06/24/23 06/25/23 06/26/23 23:59 23:59 23:59 Intake Total 1305 / 1305 1207.5 / 1207.5 Balance 1305 / 1305 1207.5 / 1207.5 Lab / Micro Data 06/26/23 07:37 06/26/23 07:37 Labs: Laboratory Results - last 24 hr 06/25/23 06:56: WBC 6.1, RBC 3.16 L, Hgb 9.0 L, Hct 28.4 L, MCV 89.9, MCH 28.5, MCHC 31.7 L, RDW Std Deviation 52.1 H, RDW Coeff of John 15.9 H, Plt Count 165, MPV 10.5, Immature Gran % (Auto) 0.300, Neut % (Auto) 91.0 H, Lymph % (Auto) 3.6 L, [place] % (Auto) 5.1, Eos % (Auto) 0.0, Baso % (Auto) 0.0, Absolute Neuts (auto) 5.6, Absolute Lymphs (auto) 0.22 L, Nucleated RBC % 0, Sodium 133 L, Potassium 3.5, Chloride 107, Carbon Dioxide 20.0 L, Anion Gap 6, BUN 38 H, Creatinine 1.67 H, Estim Creat Clear Calc 31.86, Est GFR (MDRD) Af Amer 51 L, Est GFR (MDRD) Non-Af 42 L, BUN/Creatinine Ratio 22.8 H, Glucose 151 H, Calcium 7.8 L, Total Bilirubin 0.40, AST 11 L, ALT 10 L, Alkaline Phosphatase 59, Total Protein 6.5, Albumin 2.3 L, Globulin 4.2, Albumin/Globulin Ratio 0.5 L, TSH 3.16 Micro: Microbiology 06/25/23 04:30 Urine, Random Streptococcus pneumoniae Antigen (M - Final 06/25/23 04:30 Urine, Random Legionella Antigen - Final 06/25/23 04:30 Stool Enteric Bacteriology - Final 06/25/23 04:30 Stool Clostridioides difficile (PCR) - Final 06/24/23 19:10 Mucosa - Nasopharyngeal Respiratory Panel (PCR) - Final 06/24/23 13:00 Mucosa - Nose SARS-CoV-2, Influenza & RSV (PCR) - Final Physical Exam Narrative Physical Examination: General: Awake, alert, oriented x 3 and cooperative, seated upright in CT bedside chair, interactive, talkative. Skin: Normal color, normal turgor, no icterus, no cyanosis except occasional staged ecchymoses, abrasion. HEENT: AT/NC, EOMI, PERRLA, MMM. Lungs: Improved air movement, still decreased bases, coarse bilaterally, appropriate effort, no respiratory distress evidence, no rales or wheezing. Heart: Regular rate and rhythm; no gallop, rub audible. Abdomen: Soft, NTTP, ND, normal BS. Extremities: No cyanosis, no clubbing, mild chronic RLE not markedly pitting ankle-distal cota edema. Neurological: Patient awake, alert, oriented as noted, cognitive function intact; pupils equally reactive to light and accommodation, cranial nerves grossly normal, moving all 4 extremities, no focal deficits, strength improving, mildly to moderately globally decreased, using walker which is his own walker. Psychiatric: Affect appears talkative, normal, no acute evidence of depressive or anxiety feelings. Assessment & Plan Assessment/Plan (1) Community acquired pneumonia: PLAN: Plan The patient is an 82 y/o M w/ PMHx: HTN, HLD, Hx Heart Complete Block, Valvular Heart Disease, Chronic normocytic anemia/AOCD/Fe deficiency anemia, Hypothyroidism, Gout, Hx VTE w/ DVT, COPD/Asthma, PAF/Flutter, CKD stage III, CAD who presents to the [facility] ED on 06/24/23 with history of increasing dyspnea, wheezing, cough productive of white sputum with chills without specific fever with loose stools over the last several days prompting eventual ED evaluation. 1. Acute Hypoxia secondary to Community Acquired BL Pneumonia in the setting of Chronic COPD/Asthma w/ allergic rhinitis w/ concurrent diarrhea: Admitted to CT, maintained on oxygen with wean as tolerated to room air, continue ATC duonebs, ATC budesonide, PRN albuterol, maintained on IV Rocephin and Azithromycin, HOB, IS parameters w/ requested sputum culture but unable to produce, negative urine antigens, negative full respiratory viral panel, stool studies w/ negative enteric and negative c-diff and diarrhea resolved per staff. Bld cx x 2 obtained in the ED with NGTD. Oxygenation trial with no home O2 needs. PT/OT/CM for discharge planning with recommendation for home without therapy needs givne he is doing so well. 2. Hypokalemia: 06/26/23 K+ 3.4, magnesium level pending, will supplement potassium and if needed Mag also. 3. GRETA on Chronic Kidney Disease Stage III, unclear subtype: Admission BUN/Cr 30/1.87, baseline renal function primarily 1.1-1.4 02/2023 however prior to this baseline appeared 1.3-1.9 thus creatinine has certainly vacillated, suspected more GRETA on chronic especially given reported GI losses, but if after hydration change is not marked certainly could be more consistent with renal insufficiency on CKD stage III unclear subtype. Will, continue judicious hydration, holding nephrotoxic regimen, 06/25/23 BUN/Cr 38/1.67-->06/26/23 BUN/Cr 43/1.61. Will have patient repeat BMP with PCP outpatient. 4. Acute on Chronic Hyponatremia, mild, likely hypovolemic component with GI losses: Admission Na 131, baseline mid 130 range, will continue judicious hydration, 06/25/23 Na 133-->06/26/23 Na 139. Will have patient repeat BMP outpatient. 5. Chronic normocytic anemia/AOCD/Fe deficiency anemia: Admission: 11.9, MCV 90.4, baseline hemoglobin previously 8-9 however this was in 02/2023 likely during admission but more recently 03/26/23 repeat hemoglobin 10.6, 06/25/2023 hemoglobin 9.0, suspect that this is more his baseline, especially given need for hydration, 06/26/23 Hgb 8.8, appears stable, continue Fe supplementation. 6. Valvular Heart Disease: Per patient ongoing evaluation for upcoming TAVR consideration, monitor for overload, encouraged update to his Cardiac/CT team. 7. PAF: Per current list not on rate or rhythm agent, not chronically anticoagulated per current list. 8. CAD: Will continue asa, not on statin therapy, not on any hypertensive regimen nor any rate or rhythm agents given underlying 9. PAF: Currently status post pacemaker placement, not on rate or rhythm agent, not chronically anticoagulated, continue asa. 10. Hypothyroidism: We will continue patient on Synthroid regimen. 11. Hypertension: Noted chart reported history, not on agent, continue to monitor, add if appropriate. 12. Hyperlipidemia: Per current list not on statin therapy, defer to outpatient. 13. GERD: Will continue home famotidine regimen. 14. Hx Complete Heart Block: s/p pacemaker status. 15. Anxiety and Depression: Will continue home sertraline regimen. 16. Hx VTE: Noted history of DVT, not chronically anticoagulated currently. 17. DVT prophylaxis: Heparin. 18. CODE status: Full Code. Charges/Coding Visit Charges Inpatient E&M: 39387 Subs Hosp L2
[2023-06-26] MEDS: Budesonide Respules 0.5 MG/2 ML AMPUL.NEB. INHALATION (06:59)
[2023-06-26 08:04] LABS: Absolute Lymphocyte Count 0.48 X10^3/uL (0.83-4.51); Absolute Neutrophil Count 3.6 X10^3/uL (2.0-7.7); Basophil# 0.01 X10^3/uL; Basophil% 0.2 % (0-1); Eosinophils% 2.2 % (0-5); Hematocrit 29.1 % (40-54); Hemoglobin 8.8 g/dL (13.0-16.5); Lymphocyte # 0.48 X10^3/ul (0.83-4.51); Lymphocyte % 10.5 % (19-41); Mean Corp Hgb Conc 30.2 g/dL (32-36); Mean Corpuscular Hgb 27.9 pg (27.0-32.0); Mean Corpuscular Volume 92.4 fL (80-94); Mean Platelet Vol. 10.5 fl (6.2-12.0); Monocyte# 0.32 X10^3/uL; NRBC Flagged by Analyzer 0 % (0-5); Neutrophil # 3.62 X10^3/uL (2.7-7.7); Neutrophil % 79.4 % (47-70); POSITIVE DIFFERENTIAL YES; Platelet Count 175 K/mm3 (150-450); RBC Distribution Width SD 54.7 fl (35.1-43.9); Red Blood Count 3.15 M/mm3 (4.6-6.2); White Blood Count 4.6 K/mm3 (4.4-11.0)
[2023-06-26 08:28] LABS: ALB/GLOB Ratio 0.5 RATIO (0.9-2.4); AST(SGOT) 25 U/L (15-37); Alanine Aminotransfer ALT/SGPT 17 U/L (16-61); Albumin, Serum 2.3 g/dL (3.2-5.0); Alkaline Phosphatase 57 U/L (45-117); Anion Gap 5 (5-15); BUN 43 mg/dL (7-18); BUN/Creat Ratio 26.7 RATIO (10-20); Calcium,Total 8.7 mg/dL (8.5-10.1); Chloride 113 mmol/L (98-107); Creatinine, Serum 1.61 mg/dL (0.70-1.30); EST Glomerular Filtration Rate 44 mL/min (>60); Est Glom Filt Rate - Afr Amer 53 mL/min (>60); Estimated Creatinine Clearance 33.04 ml/min; Globulin 4.6 g/dL (2.2-4.2); Glucose 102 mg/dL (74-106); Potassium 3.4 mmol/L (3.5-5.1); Protein, Total 6.9 g/dL (6.4-8.2); Sodium Level 139 mmol/L (136-145)
[2023-06-26] MEDS: Heparin Injection (Vial) 5,000 UNIT/ML VIAL 5000 UNIT SC (08:58)
[2023-06-26] MEDS: guaiFENesin 1,200 MG Tablet 1200 MG PO (08:58)
[2023-06-26] MEDS: Famotidine 20 MG Tablet 40 MG PO (08:58)
--- NOTE | 2023-06-26 10:36 | DS.PCM_ITS ---
Providers Date of Admission: 06/24/23 Primary Care Physician: Dr. Angelique Grossman MD Reason For Visit: PNEUMONIA Diagnosis Discharge Diagnosis (1) Community acquired pneumonia: Status: Acute Code(s): J18.9 - Pneumonia, unspecified organism Plan: DISCHARGE DIAGNOSES: 1. Acute Hypoxia secondary to Community Acquired BL Pneumonia in the setting of Chronic COPD/Asthma w/ allergic rhinitis w/ concurrent diarrhea 2. Hypokalemia: 3. Suspected more likely Acute Renal Insufficiency rather than Acute Kidney Inj ury on Chronic Kidney Disease Stage III, unclear subtype 4. Acute on Chronic Hyponatremia, mild, likely dehydration and losses with diarrhea 5. Chronic normocytic anemia/AOCD/Fe deficiency anemia 6. Valvular Heart Disease w/ upcoming TAVR consideration 7. PAF 8. CAD 9. Hypothyroidism 10. Hypertension 11. Hyperlipidemia 12. GERD 13. Hx Complete Heart Block s/p pacemaker status. 14. Anxiety and Depression 15. Hx VTE not chronically anticoagulated currently Medications at Discharge Home Medications epinephrine 0.3 mg/0.3 mL injection, auto-injector 0.3 mg IJ PRN ANAPHYLAXIS 12/04/18 multivitamin 1 tab PO QAM VITAMIN 04/19/19 fluticasone propionate 50 mcg/actuation nasal spray,suspension 2 spray intranasal DAILY ALLERGIES #16 grams 06/27/22 levothyroxine 75 mcg tablet 75 mcg PO DAILY THYROID #90 tabs 08/12/22 fluticasone propionate 230 mcg-salmeterol 21 mcg/actuation HFA inhaler 2 puff inhalation BID ASTHMA #1 device 08/23/22 montelukast 10 mg tablet 10 mg PO QPM ALLERGIES #30 tabs 09/27/22 ferrous sulfate 325 mg (65 mg iron) tablet (FeroSul) 325 mg PO DAILY SUPPLEMENT 11/29/22 nitroglycerin 0.4 mg sublingual tablet 0.4 mg sublingual Q5-15M PRN CHEST PAIN #25 tabs 12/02/22 famotidine 40 mg tablet 40 mg PO DAILY ACID REFLUX #90 tabs 01/02/23 albuterol sulfate 90 mcg/actuation aerosol inhaler 2 puff inhalation Q4H PRN SHORTNESS OF BREATH/WHEEZING 03/12/23 tiotropium bromide 2.5 mcg/actuation mist for inhalation (Spiriva Respimat) 2 puff inhalation DAILY ASTHMA 03/12/23 Handicap placard #1 ea 03/17/23 acetaminophen 500 mg tablet 1,000 mg (2 x 500 mg) PO Q8 Pain #0 tabs 03/17/23 sertraline 100 mg tablet 100 mg PO DAILY DEPRESSION #90 tabs 04/08/23 menthol 0.44 %-zinc oxide 20.6 % topical ointment (Calmoseptine) 1 applic topical 4-6XD PRN skin irritation #113 grams 04/16/23 albuterol sulfate 2.5 mg/3 mL (0.083 %) solution for nebulization 2.5 mg (3 mL) inhalation Q2H PRN PRN SHORTNESS OF BREATH/WHEEZING 30 days #180 mL 06/26/23 azithromycin 500 mg tablet 500 mg PO DAILY Pneumonia 3 days #3 tabs 06/26/23 cefdinir 300 mg capsule 300 mg PO BID Pneumonia 5 days #10 caps 06/26/23 guaifenesin 1,200 mg tablet, extended release 12 hr (Mucus Relief ER) 1,200 mg PO BID 10 days #20 tabs 06/26/23 ipratropium 0.5 mg-albuterol 3 mg (2.5 mg base)/3 mL nebulization soln 3 ml inhalation Q6H 10 days #180 mL 06/26/23 sennosides 8.6 mg-docusate sodium 50 mg tablet (Stool Softener-Stimulant Laxative) 1 tab PO BID PRN STOOL SOFTENER #0 tabs 06/26/23 Hospital Course Operations None Procedures EKG Summary of Care Provided Minutes Spent on Discharge: 35 Hospital Course: The patient is an 82 y/o M w/ PMHx: HTN, HLD, Hx Heart Complete Block, Valvular Heart Disease, Chronic normocytic anemia/AOCD/Fe deficiency anemia, Hypot hyroidism, Gout, Hx VTE w/ DVT, COPD/Asthma, PAF/Flutter, CKD stage III, CAD who presented to the [facility] ED on 06/24/23 with history of increasing dyspnea, wheezing, cough productive of white sputum with chills without specific fever with loose stools over the last several days prompting eventual ED evaluation. Admitted to [place], maintained on oxygen with wean as tolerated to room air, continue ATC duoneb s, ATC budesonide, PRN albuterol, maintained on IV Rocephin and Azithromycin, HOB, IS parameters w/ requested sputum culture but unable to produce, negative urine antigens, negative full respiratory viral panel, stool studies w/ negative enteric and negative c-diff and diarrhea resolved per staff. Bld cx x 2 obtained in the ED with NGTD. Oxygenation trial with no home O2 needs. PT/OT/CM for discharge planning with recommendation for home without therapy needs. Admission BUN/Cr 30/1.87, baseline renal function primarily 1.1-1.4 02/2023 however prior to this baseline appeared 1.3-1.9 thus creatinine has certainly vacillated, suspected more GRETA on chronic especially given reported GI losses initially, but after hydration change not markedly altered thus suspect more consistent with renal insufficiency on CKD stage III unclear subtype. Hydrated judiciously. 06/25/23 BUN/Cr 38/1.67-->06/26/23 BUN/Cr 43/1.61. Admission Na 131, baseline mid 130 range, will continue judicious hydration, 06/25/23 Na 133-->06/26/23 Na 139. Will have patient repeat BMP outpatient. Admission Hgb 11.9, MCV 90.4, baseline hemoglobin previously 8-9 however this was in 02/2023 likely during admission but more recently 03/26/23 repeat hemoglobin 10.6, 06/25/2023 hemoglobin 9.0, suspect that this is more his baseline, especially given need for hydration, 06/26/23 Hgb 8.8, continued Fe supplementation. Given clinical improvement and per patient preference patient discharged home with refill on albuterol nebulizers, short course DuoNeb therapy, oral antibiotics as well as continued repeat BMP with primary care physician and update to his TAVR team about his recent hospitalization with early primary care physician follow-up. Weight / BMI Weight Weight: 166 lb 10.711 oz Body Mass Index (BMI) 25.3 ABG / Lab / Microbiology Data 06/26/23 07:37 06/26/23 07:37 Laboratory: Laboratory Results - last 24 hr 06/26/23 07:37: WBC 4.6, RBC 3.15 L, Hgb 8.8 L, Hct 29.1 L, MCV 92.4, MCH 27.9, MCHC 30.2 L, RDW Std Deviation 54.7 H, RDW Coeff of John 16.0 H, Plt Count 175, MPV 10.5, Immature Gran % (Auto) 0.700, Neut % (Auto) 79.4 H, Lymph % (Auto) 10.5 L, [place] % (Auto) 7.0, Eos % (Auto) 2.2, Baso % (Auto) 0.2, Absolute Neuts (auto) 3.6, Absolute Lymphs (auto) 0.48 L, Nucleated RBC % 0, Sodium 139, Potassium 3.4 L, Chloride 113 H, Carbon Dioxide 21.0, Anion Gap 5, BUN 43 H, Creatinine 1.61 H, Estim Creat Clear Calc 33.04, Est GFR (MDRD) Af Amer 53 L, Est GFR (MDRD) Non-Af 44 L, BUN/Creatinine Ratio 26.7 H, Glucose 102, Calcium 8.7, Total Bilirubin 0.20, AST 25, ALT 17, Alkaline Phosphatase 57, Total Protein 6.9, Albumin 2.3 L, Globulin 4.6 H, Albumin/Globulin Ratio 0.5 L Microbiology: Microbiology 06/25/23 04:30 Urine, Random Streptococcus pneumoniae Antigen (M - Final 06/25/23 04:30 Urine, Random Legionella Antigen - Final 06/25/23 04:30 Stool Enteric Bacteriology - Final 06/25/23 04:30 Stool Clostridioides difficile (PCR) - Final 06/24/23 19:10 Mucosa - Nasopharyngeal Respiratory Panel (PCR) - Final 06/24/23 13:00 Mucosa - Nose SARS-CoV-2, Influenza & RSV (PCR) - Final D/C Instructions Discharge Diet: Low fat / Low cholesterol May resume sexual activity in: 10-14 days Weight Bearing Status: Weight bearing as tolerated Call your doctor if you observe: Fever of 101 or Higher, Numbness or Tingling, Inability to urinate, Shortness of breath, Dizziness, Chest pain, Increased palpitations (irregular heartbeat), Calf discomfort and Uncontrolled pain Meaningful Use Info Meaningful Use Diagnoses (Choose all that apply): None applicable Discharge Plan Admission Admit Date/Time: 06/24/23 17:20 Primary Reason for Your Visit: Hypoxia, BL PNA, Renal insufficiency on CKD, Low sodium, Low potassium Attending Provider: Jaleesa Willis Primary Care Provider: Angelique Grossman Consulting Providers: Jaleesa Cali Instructions Patient Instructions: ED Pneumonia (Adult) Additional Instructions / Restrictions: ADDITIONAL DISCHARGE INSTRUCTIONS/PLAN OF CARE: 1. Acute Hypoxia secondary to Community Acquired BL Pneumonia in the setting of Chronic COPD/Asthma w/ allergic rhinitis w/ concurrent diarrhea: Treated during admission with breathing treatments including duonebs, budesonide and as needed albuterol, maintained on IV antibiotic including Rocephin and Azithromycin. Your urine urine antigens, full respiratory viral panel, stool studies including enteric and c-diff were all negative. Your oxygenation remained appropriate on room air. On discharge we are going to given your refill for albuterol nebulized treatment, course of duoneb nebulized treatment as well as antibiotics. Please also continue aggressive incentive spirometer and breathing exercises at discharge for at least 1-2 weeks. We recommend close early follow-up with your primary care physician. 2. Hypokalemia: Your potassium was mildly low during admission and was supplemented. We recommend repeat basic metabolic panel at follow-up with your primary care physician. 3. Suspected more likely Acute Renal Insufficiency rather than Acute Kidney Injury on Chronic Kidney Disease Stage III, unclear subtype: Admission BUN/Cr 30/1.87, baseline renal function primarily 1.1-1.4 02/2023 however prior to this baseline appeared 1.3-1.9 thus creatinine has certainly vacillated. You were hydrated and nephrotoxic agents wsere temporarily held. 06/26/23 BUN/Cr 43/1.61. We recommend repeat basic metabolic panel at follow-up with your primary care physician. 4. Acute on Chronic Hyponatremia, mild, likely dehydration and losses with diarrhea: Admission sodium 131, baseline mid 130 range, wadministered hydration, 06/26/23 Na 139. We recommend repeat basic metabolic panel at follow-up with your primary care physician. 5. Valvular Heart Disease: Please notify your physician for upcoming TAVR consideration about your recent admission at your visit as you will to be healthy and appropriate for this procedure in the future. Please follow-up with your primary care physician as recommended. Discharge Orders/Prescriptions Prescriptions: New guaifenesin [Mucus Relief ER] 1,200 mg Tablet Extended Release 12hr 1,200 mg PO BID 10 Days Qty: 20 0RF ipratropium-albuterol 0.5 mg-3 mg(2.5 mg base)/3 mL Solution For Nebulization 3 ml inhalation Q6H 10 Days Qty: 180 0RF cefdinir 300 mg capsule 300 mg PO BID 5 Days Qty: 10 0RF azithromycin 500 mg tablet 500 mg PO DAILY 3 Days Qty: 3 0RF Continued multivitamin Tablet 1 tab PO QAM montelukast 10 mg tablet 10 mg PO QPM Qty: 30 3RF ferrous sulfate [FeroSul] 325 mg (65 mg iron) tablet 325 mg PO DAILY epinephrine 0.3 MG/0.3 ML auto-injector 0.3 mg IJ PRN albuterol sulfate 90 mcg/actuation HFA aerosol inhaler 2 puff INHALATION Q4H PRN (Reason: SHORTNESS OF BREATH/WHEEZING) Spiriva Respimat 2.5 mcg/actuation mist 2 puff INHALATION DAILY sennosides-docusate sodium [Stool Softener-Stimulant Laxat] 8.6-50 mg tablet 1 tab PO BID PRN (Reason: STOOL SOFTENER) Qty: 0 0RF Rx Instructions: Hold for loose stools fluticasone propionate 50 mcg/actuation spray,suspension 2 spray intranasal DAILY Qty: 16 3RF levothyroxine 75 mcg tablet 75 mcg PO DAILY Qty: 90 3RF fluticasone propion-salmeterol 230-21 mcg/actuation HFA aerosol inhaler 2 puff INHALATION BID Qty: 1 11RF nitroglycerin 0.4 mg tablet, sublingual 0.4 mg sublingual Q5-15M PRN (Reason: CHEST PAIN) Qty: 25 3RF famotidine 40 mg tablet 40 mg PO DAILY Qty: 90 3RF (DME) Handicap placard See Rx Instructions .Route .MEDSUPPLY Qty: 1 0RF Rx Instructions: 5 year RX [id number] sertraline 100 mg tablet 100 mg PO DAILY Qty: 90 3RF menthol-zinc oxide [Calmoseptine] 0.44-20.6 % ointment 1 applic topical 4-6XD PRN (Reason: skin irritation) Qty: 113 1RF Changed albuterol sulfate 2.5 mg /3 mL (0.083 %) solution for nebulization 2.5 mg INHALATION Q2H PRN PRN (Reason: SHORTNESS OF BREATH/WHEEZING ) 30 Days Qty: 180 0RF No Action acetaminophen 500 mg Tablet 1,000 mg PO Q8 Qty: 0 0RF Referrals / Follow Up: Angelique Grossman MD [Primary Care Provider] - (Follow-up within 2-3 days. Please have repeat CBC and BMP outpatient given mildly low potassium and renal insufficiency on chronic disease, low sodium as well as chronic anemia.) Disposition Disposition (needs filled in before D/C Order can be placed): Home, Self Care Charges/Coding Visit Charges Inpatient E&M: 99483 Disch Hosp >30min
--- NOTE | 2023-06-26 11:06 | CASEMGMT ---
Patient has order for discharge today. Patient does not qualify for home oxygen per nursing. Patient did well with therapy, no therapy recommended at discharge. RN CM in to discuss needs at discharge. Patient denies needs or help at discharge. Patient had no further questions or concerns.
[2023-06-26] MEDS: Potassium Chloride Oral Soln 20 MEQ/15 ML UDC 40 MEQ PO (11:07)
[2023-06-26] MEDS: Menthol/Lanolin/Calamine/Znox 113 GM Tube 1 APPLIC TOPICAL (11:08)
[2023-06-26] MEDS: Ferrous Sulfate 325 MG Tablet PO (11:13)
[2023-06-26 11:54] LABS: Magnesium 1.8 mg/dL (1.6-2.6)
--- NOTE | 2023-06-26 12:46 | PHA.DC_ITS ---
Pharmacy [facility] Pharmacy Service has performed discharge medication reconciliation and counseling for this patient. The patient's discharge medication list was reviewed for discrepancies and discrepancies were resolved. The patient was counseled on the following discharge medications and changes in medications for homegoing were reviewed. 1. OMNICEF --> REC TO SEPARATE IRON AND MVI (TAKE WITH LUNCH) TO AVOID INTERACTIONS 2. ZITHROMAX The Reason for Use, instructions for use, and potential side effects were reviewed for all new medications. The patient's questions regarding all of their medications were answered. The patient was able to verbally demonstrate an understanding of their discharge medications. Medications at Discharge Home Medications epinephrine 0.3 mg/0.3 mL injection, auto-injector 0.3 mg IJ PRN ANAPHYLAXIS 12/04/18 multivitamin 1 tab PO QAM VITAMIN 04/19/19 fluticasone propionate 50 mcg/actuation nasal spray,suspension 2 spray intranasal DAILY ALLERGIES #16 grams 06/27/22 levothyroxine 75 mcg tablet 75 mcg PO DAILY THYROID #90 tabs 08/12/22 fluticasone propionate 230 mcg-salmeterol 21 mcg/actuation HFA inhaler 2 puff inhalation BID ASTHMA #1 device 08/23/22 montelukast 10 mg tablet 10 mg PO QPM ALLERGIES #30 tabs 09/27/22 ferrous sulfate 325 mg (65 mg iron) tablet (FeroSul) 325 mg PO DAILY SUPPLEMENT 11/29/22 nitroglycerin 0.4 mg sublingual tablet 0.4 mg sublingual Q5-15M PRN CHEST PAIN #25 tabs 12/02/22 famotidine 40 mg tablet 40 mg PO DAILY ACID REFLUX #90 tabs 01/02/23 albuterol sulfate 90 mcg/actuation aerosol inhaler 2 puff inhalation Q4H PRN SHORTNESS OF BREATH/WHEEZING 03/12/23 tiotropium bromide 2.5 mcg/actuation mist for inhalation (Spiriva Respimat) 2 puff inhalation DAILY ASTHMA 03/12/23 Handicap placard #1 ea 03/17/23 acetaminophen 500 mg tablet 1,000 mg (2 x 500 mg) PO Q8 Pain #0 tabs 03/17/23 sertraline 100 mg tablet 100 mg PO DAILY DEPRESSION #90 tabs 04/08/23 menthol 0.44 %-zinc oxide 20.6 % topical ointment (Calmoseptine) 1 applic topical 4-6XD PRN skin irritation #113 grams 04/16/23 albuterol sulfate 2.5 mg/3 mL (0.083 %) solution for nebulization 2.5 mg (3 mL) inhalation Q2H PRN PRN SHORTNESS OF BREATH/WHEEZING 30 days #180 mL 06/26/23 azithromycin 500 mg tablet 500 mg PO DAILY Pneumonia 3 days #3 tabs 06/26/23 cefdinir 300 mg capsule 300 mg PO BID Pneumonia 5 days #10 caps 06/26/23 guaifenesin 1,200 mg tablet, extended release 12 hr (Mucus Relief ER) 1,200 mg PO BID 10 days #20 tabs 06/26/23 ipratropium 0.5 mg-albuterol 3 mg (2.5 mg base)/3 mL nebulization soln 3 ml inhalation Q6H 10 days #180 mL 06/26/23 sennosides 8.6 mg-docusate sodium 50 mg tablet (Stool Softener-Stimulant Laxative) 1 tab PO BID PRN STOOL SOFTENER #0 tabs 06/26/23
[2023-06-26] MEDS: Sertraline 100 MG Tablet PO (13:31)
== END 2023-06-26 14:43 | disposition home or self-care (01) | DRG 194 ==
LOC: ED 15:41 → MS3 19:12
PROVIDERS: Admitting Provider Internal Medicine; Emergency Provider Emergency Medicine; PCP Internal Medicine; Visit Provider Family Medicine
DX: J18.9 Pneumonia, unspecified organism (principal); E87.1 Hypo-osmolality and hyponatremia; J44.0 Chronic obstructive pulmonary disease with (acute) lower respiratory infection; I48.0 Paroxysmal atrial fibrillation; E86.0 Dehydration; N18.32 Chronic kidney disease, stage 3b; D50.0 Iron deficiency anemia secondary to blood loss (chronic); E03.9 Hypothyroidism, unspecified; F32.A Depression, unspecified; I35.0 Nonrheumatic aortic (valve) stenosis; I12.9 Hypertensive chronic kidney disease with stage 1 through stage 4 chronic kidney disease, or unspecified chronic kidney disease; K21.9 Gastro-esophageal reflux disease without esophagitis; M10.9 Gout, unspecified; I25.10 Atherosclerotic heart disease of native coronary artery without angina pectoris; E87.6 Hypokalemia; J30.9 Allergic rhinitis, unspecified; F41.9 Anxiety disorder, unspecified; R19.7 Diarrhea, unspecified; Z79.51 Long term (current) use of inhaled steroids; Z79.899 Other long term (current) drug therapy; Z95.0 Presence of cardiac pacemaker; Z86.718 Personal history of other venous thrombosis and embolism
CPT/HCPCS: 36415; 71045; 80053; 81001; 83605; 83735; 84443; 85025; 85610; 85730; 87040; 87205; 87449; 87493; 87506; 87631; 87633; 93005; 94640; 94668; 94762; 97110; 97162; 97166; 97530; 99252; 99285; J7030; J7040; A4216; G0463

== ENCOUNTER → 2023-07-17 | Outpatient (CLI) | payer MEDICARE, SELFPAY ==
[2023-07-17 10:48] LABS: Protein, Urine (Random) 20.5 mg/dL (<11.9); Protein:Creat Ratio 185 mg/g CRE (0-200)
[2023-07-17 11:18] LABS: Anion Gap 4 (5-15); BUN 22 mg/dL (7-18); BUN/Creat Ratio 16.1 RATIO (10-20); Calcium,Total 8.5 mg/dL (8.5-10.1); Chloride 110 mmol/L (98-107); Creatinine, Serum 1.37 mg/dL (0.70-1.30); EST Glomerular Filtration Rate 53 mL/min (>60); Est Glom Filt Rate - Afr Amer 64 mL/min (>60); Glucose 112 mg/dL (74-106); Potassium 4.1 mmol/L (3.5-5.1); Sodium Level 140 mmol/L (136-145)
== END | disposition home or self-care (01) ==
LOC: LAB 09:46
PROVIDERS: PCP Internal Medicine
DX: N18.32 Chronic kidney disease, stage 3b (principal)
CPT/HCPCS: 36415; 80048; 82570; 84156

== ENCOUNTER → 2023-08-13 | Outpatient (CLI) | payer MEDICARE, SELFPAY ==
--- NOTE | 2023-08-13 12:52 | VDLE_ITS ---
Reason For Study: Right leg pain RIGHT LEFT GSV is normal. CFV is compressible, spontaneous, phasic, CFV is compressible, spontaneous, phasic, competent, and demonstrates normal competent and demonstrates normal augmentation. augmentation. FV is compressible, spontaneous, phasic, competent and demonstrates normal augmentation. POP V is compressible, spontaneous, phasic, competent and demonstrates normal augmentation. T/P Trunk is compressible. PTV is compressible. RT PerV is compressible. Large nonvascularized structure noted in the right groin. Patient s/p heart cath. Procedure This is a venous duplex using B-mode, color flow and spectral Doppler. Exam performed in department. A preliminary report was called and/or faxed to Dr. Grossman. VL/Venous Duplex US, Unilateral Interpretation Summary There is no evidence of right lower extremity deep vein thrombosis. Right great saphenous vein appears patent and compressible segmentally. Large complex nonvascular subcutan eous structure right groin. Clinical correlation is indicated as the patient by report has had a rec ent heart catheterization. Normal flow patterns left common femoral vein Ordering Physician: Angelique Grossman Referring Physician: Angelique Grossman Performed By: Helen Arellano RVT
== END | disposition home or self-care (01) ==
LOC: CVS 12:49
PROVIDERS: PCP Internal Medicine; Referring Provider Internal Medicine; Visit Provider Internal Medicine
DX: L03.115 Cellulitis of right lower limb (principal)
CPT/HCPCS: 93971

== ENCOUNTER 2023-08-19 15:24 | Emergency (ER) | payer MEDICARE, SELFPAY ==
[2023-08-19 15:25] VITALS: BP 154/77; PULSE 90; RESP 16; TEMP 36.4; O2SAT 98; BMI 27.1
--- NOTE | 2023-08-19 15:53 | ED.VIS.FALL ---
HPI HPI - Fall History of Present Illness Chief Complaint: Fall Informant: patient Occured/Mechanism Occurred: Today Narrative: Patient fell out of a chair Pain/Injury Location: Left forehead, right hand, right knee Pain Location: head, upper extremity and lower extremity Quality of Pain: Aching Worsened by: Nothing Relieved by: Nothing Associated Symptoms Associated Symptoms: Negative for Parasthesias, Weakness, Loss of function, Inability to ambulate, Loss of consciousness or Amnesia Narrative Narrative: Patient presents after a fall that occurred today. Patient fell asleep while sitting in a roller chair. Patient states he fell out of the chair and onto the floor. Patient denies any loss of consciousness. Patient states he hit the left side of his head. Patient admits to a skin tear of his right knee and right hand. Patient denies any paresthesias or weakness. Patient states his last tetanus was within 5 years. Patient is not on any blood thinners. Patient denies any neck pain. Patient denies any visual changes. Patient denies any nausea or vomiting. [facility], [facility] Medical History Allergic rhinitis Anemia Anemia of chronic renal failure, stage 3 (moderate) Arthritis Asthma Bruising Cellulitis and abscess of right leg Cellulitis of left leg Cellulitis of right lower extremity Chronic asthma Chronic 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 CKD (chronic kidney disease) Closed hip fracture Coronary heart disease Degenerative joint disease of knee, right Diverticulosis Diverticulosis Essential (primary) hypertension Failed fixation of fracture GERD (gastroesophageal reflux disease) Gout Hay fever History of deep vein thrombosis of lower extremity HLD (hyperlipidemia) Hypothyroidism Iron deficiency anemia Iron deficiency anemia due to chronic blood loss Left ventricular diastolic dysfunction Leg wound, left Macular degeneration Non-pressure chronic ulcer of left calf with fat layer exposed Nonrheumatic aortic (valve) stenosis Osteoarthritis Pleural plaque Presence of cardiac pacemaker Pulmonary hypertension Pulmonary nodule Right knee DJD Secondary pulmonary arterial hypertension Severe aortic stenosis Sick sinus syndrome due to SA node dysfunction Skin cancer Traumatic open wound of right lower leg with infection Venous ulcer with fat layer exposed Home Medications epinephrine 0.3 mg/0.3 mL injection, auto-injector 0.3 mg IJ PRN ANAPHYLAXIS 12/04/18 [History Last Taken Unknown] multivitamin 1 tab PO QAM VITAMIN 04/19/19 [History Last Taken 03/12/23] levothyroxine 75 mcg tablet 75 mcg PO DAILY THYROID #90 tabs 08/12/22 [Rx Last Taken 06/23/23] fluticasone propionate 230 mcg-salmeterol 21 mcg/actuation HFA inhaler 2 puff inhalation BID ASTHMA #1 device 08/23/22 [Rx Last Taken 03/12/23] montelukast 10 mg tablet 10 mg PO QPM ALLERGIES #30 tabs 09/27/22 [Rx Last Taken 06/19/23] nitroglycerin 0.4 mg sublingual tablet 0.4 mg sublingual Q5-15M PRN CHEST PAIN #25 tabs 12/02/22 [Rx Last Taken Unknown] famotidine 40 mg tablet 40 mg PO DAILY ACID REFLUX #90 tabs 01/02/23 [Rx Last Taken 06/23/23] albuterol sulfate 90 mcg/actuation aerosol inhaler 2 puff inhalation Q4H PRN SHORTNESS OF BREATH/WHEEZING 03/12/23 [History Last Taken 06/23/23] tiotropium bromide 2.5 mcg/actuation mist for inhalation (Spiriva Respimat) 2 puff inhalation DAILY ASTHMA 03/12/23 [History Last Taken 06/23/23] Handicap placard #1 ea 03/17/23 [Rx Last Taken Unknown] acetaminophen 500 mg tablet 1,000 mg (2 x 500 mg) PO Q8 Pain #0 tabs 03/17/23 [Rx Last Taken 06/23/23] sertraline 100 mg tablet 100 mg PO DAILY DEPRESSION #90 tabs 04/08/23 [Rx Last Taken 06/23/23] menthol 0.44 %-zinc oxide 20.6 % topical ointment (Calmoseptine) 1 applic topical 4-6XD PRN skin irritation #113 grams 04/16/23 [Rx Last Taken Unknown] albuterol sulfate 2.5 mg/3 mL (0.083 %) solution for nebulization 2.5 mg (3 mL) inhalation Q2H PRN PRN SHORTNESS OF BREATH/WHEEZING 30 days #180 mL 06/26/23 [Rx Last Taken Unknown] sennosides 8.6 mg-docusate sodium 50 mg tablet (Stool Softener-Stimulant Laxative) 1 tab PO BID PRN STOOL SOFTENER #0 tabs 06/26/23 [Rx Last Taken Unknown] ipratropium 0.5 mg-albuterol 3 mg (2.5 mg base)/3 mL nebulization soln 3 ml inhalation Q6H PRN 07/17/23 [History Last Taken Unknown] nystatin-triamcinolone 100,000 unit/g-0.1 % topical cream applic topical 07/17/23 [History Last Taken Unknown] chlorthalidone 25 mg tablet 25 mg PO DAILY #30 tabs 08/01/23 [Rx Last Taken Unknown] losartan 25 mg tablet 12.5 mg (1/2 x 25 mg) PO DAILY #30 tabs 08/04/23 [Rx Last Taken Unknown] Allergy/AdvReac Type Severity Reaction Status Date / Time indomethacin [From Indocin] AdvReac Intermediate Itching Verified 08/19/23 09:41 indomethacin sodium AdvReac Intermediate Itching Verified 08/19/23 09:41 [From Indocin] oxycodone HCl [From Percocet] AdvReac Intermediate Itching Verified 08/19/23 09:41 Family History Father Heart disease Colon cancer Sister Diabetes Mother Breast cancer Surgical History Aortic valve replaced H/O hernia repair H/O prostatectomy H/O shoulder surgery H/O total knee replacement History of appendectomy History of appendectomy History of carpal tunnel surgery History of hernia repair History of left heart catheterization (02/25/22) History of prostatectomy History of total knee replacement History of total left hip replacement History of total left hip replacement Social History household members: spouse housing: house Smoking Status: Never smoker second hand exposure: Yes alcohol intake: current alcohol intake frequency: holidays/special occasions only Alcohol type: beer substance use type: does not use caffeine: Yes Type: coffee Number of servings: 2 what type of physical activity do you participate in: walking frequency: daily giancarlo/hindu: Sikh seatbelt use: always do you feel safe at home: Yes ROS ROS ED Constitutional Constitutional ED: Denies chills or fever(s) Eyes Eyes: Denies blurry vision or change in vision ENT ENT ED: Denies rhinorrhea or sore throat Cardiovascular Cardiovascular: Denies chest pain or palpitations Respiratory/Chest Respiratory/Chest: Denies cough or dyspnea Gastrointestinal Gastrointestinal: Denies nausea or vomiting Genitourinary Genitourinary ED: Denies dysuria or hematuria Musculoskeletal Musculoskeletal: Denies back pain or neck pain Integumentary Denies abscess or rash Neurologic Neurologic: Reports headache(s); Denies weakness Allergic/Immunologic Allergic/Immunologic ED: Denies mouth swelling or urticaria EXAM Physical Exam Const Vital Signs: 08/19/23 15:25 08/19/23 15:30 08/19/23 17:24 Temperature 97.5 F L Temperature Source Temporal Pulse Rate 90 83 Respiratory Rate 16 16 Respiratory Effort Normal Blood Pressure 154/77 H 165/82 H Blood Pressure Mean 102 109 Pulse Ox 98 94 Oxygen Delivery Method Room Air Room Air Positive well nourished and well developed General Appearance ED: well developed and NAD HEENT HEENT Narrative: There is a 3.5 cm full-thickness linear laceration over the left forehead. There is mild bleeding noted. There is no bony crepitance or step-off noted. There is also a 2.5 cm V-shaped laceration over the left parietal scalp. There is no bony crepitance or step-off noted. There is mild bleeding. There are no foreign bodies noted. Eyes PERRL and EOMs intact bilaterally Neck Neck Narrative: Cervical collar is in place. Resp normal respiratory effort and clear to auscultation bilaterally Cardio regular rate and regular rhythm GI non-tender and non-distended Neuro oriented x3, CN's II-XII intact bilaterally, moves all extremities and no focal motor deficits Maverick Coma Scale: document GCS findings Spontaneous Obeys Commands Oriented 15 Sensorium / Orientation: alert Motor Exam: strength 5/5 throughout Skin Skin Narrative: There is a 2.5 cm full-thickness linear laceration over the left forehead. There is moderate amount of gapping of the wound margins. There are no foreign bodies noted. There is no bony crepitance or step-off. There are skin tears over the dorsal aspect of the right hand and anterior and medial aspect of the right knee. There is mild gapping of the wound margins. There is mild bleeding noted. There is full range of motion of the upper and lower extremities. There are no sensory deficits noted. MDM MDM MDM Narrative Medical decision making narrative: Differential diagnosis includes intracranial bleeding, closed head injury, skin tears, cervical spine fracture, and contusion. CT scan of the brain will be obtained to assess for intracranial bleeding. CT scan of the cervical spine will be obtained to assess for cervical spine fracture. Radiography Diagnostic Testing: Clinical Impression(s) from Imaging Studies Brain CT 08/19/23 15:59 IMPRESSION: Normal unenhanced CT scan of the brain. Electronically Signed: Juan Cottrell MD at 16:40 EDT , Cervical Spine CT 08/19/23 16:01 IMPRESSION: There is no definite acute fracture/dislocation. Degenerative changes, stable. Electronically Signed: Juan Cottrell MD at 16:55 EDT , CT scan of the cervical spine was obtained. There is no acute fracture or dislocation noted. There are degenerative changes noted. This was interpreted by the radiologist was also independently reviewed by myself. CT scan of the brain was obtained. There is no acute intracranial abnormality. This was interpreted by the radiologist and was also independently reviewed by myself. Treatment and Re-Evaluation Narrative: The skin tears were cleaned and closed with Steri-Strips. Procedures Lacerations Left forehead: Length: 3.5 cm Depth: Sub Q Shape: Linear Prep: Sterile Conditions Laceration repair: Irrigated, Lidocaine with epi, Local, Skin sutures and Wound explored Irrigated (ml): 100 Number of Sutures/Bhavana: 6 Suture Information: Ethilon, Simple and 4-0 Left parietal scalp: Length: 2.5 cm Depth: Sub Q Shape: Linear (V-shaped) Prep: Sterile Conditions and Chlorhexadine Laceration repair: Irrigated, Lidocaine with epi, Local, Wound explored and - ([place]) Irrigated (ml): 100 Number of Sutures/Bhavana: 7 Suture Information: - ([place]) Discharge Plan Triage Chief Complaint: Fall ED Provider: Darius Rueda Dx/Rx/DC Orders Clinical Impression: Skin tear of right hand without complication, Skin tear of right lower leg without complication, Forehead laceration, Fall, Laceration of scalp Instructions: ED Head Injury (Adult), ED Laceration, All Closures, ED Laceration Scalp Stitches or Bhavana, ED Skin Tear (Skin Avulsion) Prescriptions: No Action multivitamin Tablet 1 tab PO QAM montelukast 10 mg tablet 10 mg PO QPM Qty: 30 3RF ipratropium-albuterol 0.5 mg-3 mg(2.5 mg base)/3 mL solution for nebulization 3 ml inhalation Q6H PRN nystatin-triamcinolone 100,000-0.1 unit/g-% cream topical epinephrine 0.3 MG/0.3 ML auto-injector 0.3 mg IJ PRN albuterol sulfate 90 mcg/actuation HFA aerosol inhaler 2 puff INHALATION Q4H PRN (Reason: SHORTNESS OF BREATH/WHEEZING) Spiriva Respimat 2.5 mcg/actuation mist 2 puff INHALATION DAILY acetaminophen 500 mg Tablet 1,000 mg PO Q8 Qty: 0 0RF albuterol sulfate 2.5 mg /3 mL (0.083 %) solution for nebulization 2.5 mg INHALATION Q2H PRN PRN (Reason: SHORTNESS OF BREATH/WHEEZING ) 30 Days Qty: 180 0RF sennosides-docusate sodium [Stool Softener-Stimulant Laxat] 8.6-50 mg tablet 1 tab PO BID PRN (Reason: STOOL SOFTENER) Qty: 0 0RF Rx Instructions: Hold for loose stools levothyroxine 75 mcg tablet 75 mcg PO DAILY Qty: 90 3RF fluticasone propion-salmeterol 230-21 mcg/actuation HFA aerosol inhaler 2 puff INHALATION BID Qty: 1 11RF nitroglycerin 0.4 mg tablet, sublingual 0.4 mg sublingual Q5-15M PRN (Reason: CHEST PAIN) Qty: 25 3RF famotidine 40 mg tablet 40 mg PO DAILY Qty: 90 3RF (DME) Handicap placard See Rx Instructions .Route .MEDSUPPLY Qty: 1 0RF Rx Instructions: 5 year RX [id number] sertraline 100 mg tablet 100 mg PO DAILY Qty: 90 3RF menthol-zinc oxide [Calmoseptine] 0.44-20.6 % ointment 1 applic topical 4-6XD PRN (Reason: skin irritation) Qty: 113 1RF chlorthalidone 25 mg tablet 25 mg PO DAILY Qty: 30 3RF losartan 25 mg tablet 12.5 mg PO DAILY Qty: 30 0RF Primary Care Provider: Angelique Grossman Referrals: Angelique Grossman MD [Primary Care Provider] - 5 Days for suture removal Disposition Disposition: Home, Self Care
[2023-08-19 15:59] VITALS: BP 159/71; PULSE 90; RESP 16; TEMP 36.6; O2SAT 98
--- NOTE | 2023-08-19 15:59 | CT_ITS ---
STUDY: CT BRAIN WITHOUT CONTRAST REASON FOR EXAM: Male, 82 years old. Head injury RADIATION DOSAGE (If Supplied By Facility): CTDIvol = ( 44.99 ) mGy, DLP = ( 812.98 ) mGycm TECHNIQUE: Transaxial CT imaging of the brain was performed without administration of intravenous contrast material. Individualized dose optimization techniques were used for this CT. COMPARISON: No relevant priors. FINDINGS: Focal soft tissue swelling seen over the posterior left head. Unremarkable calvarium. Normal size ventricles and extra-axial spaces for the patient''s age. Normal white matter tracts of the cerebral hemispheres. Normal basal ganglia and thalami. Normal brainstem. Normal cerebellum. There is no intracranial hemorrhage. There are no findings of an acute ischemic infarction. Normal visualized paranasal sinuses. CT/Brain/Head without Contrast IMPRESSION: Normal unenhanced CT scan of the brain. Electronically Signed: Juan Cottrell MD at 16:40 EDT ,
--- NOTE | 2023-08-19 16:01 | CT_ITS ---
STUDY: CT CERVICAL SPINE WITHOUT CONTRAST REASON FOR EXAM: Male, 82 years old. Trauma RADIATION DOSAGE (If Supplied By Facility): CTDIvol = ( 26.07 ) mGy, DLP = ( 525.72 ) mGycm TECHNIQUE: High resolution transaxial imaging was performed without contrast material. Sagittal and coronal images were reconstructed. Individualized dose optimization techniques were used for this CT. COMPARISON: 02/06/2023 FINDINGS: No definite acute fracture/dislocation. The cervical junction is intact. C1-C2 articulation is intact. Curvature is within normal limits. There is normal alignment. Facet joints are intact at all levels bilaterally. No jumped facets. There is multilevel spondyloarthropathy. Multilevel degenerative disc disease seen. Multilevel loss of disc height. Multilevel posterior marginal osteophytes and disc bulges. Multilevel neural foraminal narrowing. Visualized paraspinal soft tissues and structures are unremarkable. CT/Spine Cervical without Contras IMPRESSION: There is no definite acute fracture/dislocation. Degenerative changes, stable. Electronically Signed: Juan Cottrell MD at 16:55 EDT ,
[2023-08-19 17:24] VITALS: BP 165/82; PULSE 83; RESP 16; O2SAT 94
[2023-08-19] MEDS: Lidocaine 1% /Epi 1:100 (20ml) 20 ML Vial INFILT (17:47)
== END 2023-08-19 18:45 | disposition home or self-care (01) ==
PROVIDERS: Emergency Provider Emergency Medicine; PCP Internal Medicine; Visit Provider Emergency Medicine
DX: S61.411A Laceration without foreign body of right hand, initial encounter (principal); S81.811A Laceration without foreign body, right lower leg, initial encounter; S01.81XA Laceration without foreign body of other part of head, initial encounter; S01.01XA Laceration without foreign body of scalp, initial encounter; W07.XXXA Fall from chair, initial encounter; Z95.0 Presence of cardiac pacemaker
CPT/HCPCS: 12001; 12013; 70450; 72125; 99283

== ENCOUNTER → 2023-09-12 | Outpatient (CLI) | payer MEDICARE, SELFPAY ==
--- NOTE | 2023-09-12 12:59 | PCM.CR.HP2 ---
CR - History & Physical General Arrival date:: 09/12/23 Arrival time:: 13:08 Date of Referral:: 09/01/23 Date of CR Evaluation:: 09/12/23 Referring Physician: Dr. Garcia Primary Diagnosis: Heart Valve replacement History of Present Cardiac Event Onset Date Heart valve replacement or repair:: Yes Medications Ambulatory Orders Medication Instructions Recorded epinephrine 0.3 mg/0.3 mL 0.3 mg IJ PRN ANAPHYLAXIS 12/04/18 injection, auto-injector multivitamin 1 tab PO QAM VITAMIN 04/19/19 nitroglycerin 0.4 mg sublingual 0.4 mg sublingual Q5-15M PRN CHEST 12/02/22 tablet PAIN #25 tabs famotidine 40 mg tablet 40 mg PO DAILY ACID REFLUX #90 tabs 01/02/23 Handicap placard #1 ea 03/17/23 acetaminophen 500 mg tablet 1,000 mg (2 x 500 mg) PO Q8 Pain 03/17/23 #0 tabs sertraline 100 mg tablet 100 mg PO DAILY DEPRESSION #90 tabs 04/08/23 menthol 0.44 %-zinc oxide 20.6 % 1 applic topical 4-6XD PRN skin 04/16/23 topical ointment (Calmoseptine) irritation #113 grams albuterol sulfate 2.5 mg/3 mL 2.5 mg (3 mL) inhalation Q2H PRN 06/26/23 (0.083 %) solution for nebulization PRN SHORTNESS OF BREATH/WHEEZING 30 days #180 mL sennosides 8.6 mg-docusate sodium 1 tab PO BID PRN STOOL SOFTENER #0 06/26/23 50 mg tablet (Stool tabs Softener-Stimulant Laxative) ipratropium 0.5 mg-albuterol 3 mg 3 ml inhalation Q6H PRN 07/17/23 (2.5 mg base)/3 mL nebulization soln nystatin-triamcinolone 100,000 applic topical 07/17/23 unit/g-0.1 % topical cream chlorthalidone 25 mg tablet 25 mg PO DAILY #30 tabs 08/01/23 losartan 25 mg tablet 12.5 mg (1/2 x 25 mg) PO DAILY #30 08/04/23 tabs aspirin 81 mg tablet,delayed 81 mg PO Q OTHER DAY 08/22/23 release (Adult Low Dose Aspirin) tiotropium bromide 2.5 2 puff inhalation DAILY ASTHMA #3 08/25/23 mcg/actuation mist for inhalation ea (Spiriva Respimat) albuterol sulfate 90 mcg/actuation 2 puff inhalation Q4H PRN 09/04/23 aerosol inhaler SHORTNESS OF BREATH/WHEEZING #3 ea fluticasone propionate 230 2 puff inhalation BID ASTHMA #1 09/04/23 mcg-salmeterol 21 mcg/actuation device HFA inhaler levothyroxine 75 mcg tablet 75 mcg PO DAILY THYROID #90 tabs 09/04/23 montelukast 10 mg tablet 10 mg PO QPM ALLERGIES #90 tabs 09/04/23 azithromycin 250 mg tablet See Rx Instructions PO .COMPLEX #6 09/11/23 tabs prednisone 10 mg tablet 10 mg PO QDAY #30 tabs 09/11/23 Allergies Allergies indomethacin [From Indocin] Adverse Reaction (Intermediate, Verified 08/27/23 11:20) Itching indomethacin sodium [From Indocin] Adverse Reaction (Intermediate, Verified 08/27/23 11:20) Itching oxycodone HCl [From Percocet] Adverse Reaction (Intermediate, Verified 08/27/23 11:20) Itching Sleep Disorder Evaluation Hx of Sleep Apnea: No Do you snore loudly (louder than talking or can be heard through closed doors)?: No Do you often feel tired/ fatigued/ sleepy during daytime?: No Has anyone observed you stop breathing during sleep?: No History of Hypertension (for STOP score): Yes STOP Results: Negative Advanced Directives Advanced Directives Power of Senior Environmental Consultant: Yes Living Will: Yes Advance Directives Information Provided: Yes Advance Directives on File: Yes DNR Order?:: No Past Medical History Covid-19 Screening Physicial Symptoms Other Clinical Concerns Exposure Risk Pertinent Comorbidities Has a serious heart condition:: Yes Past Medical Illness Medical History Allergic rhinitis Anemia Anemia of chronic renal failure, stage 3 (moderate) Arthritis Asthma Bruising Cellulitis and abscess of right leg Cellulitis of left leg Cellulitis of right lower extremity Chronic asthma Chronic 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 CKD (chronic kidney disease) Closed hip fracture Coronary heart disease Degenerative joint disease of knee, right Diverticulosis Diverticulosis Essential (primary) hypertension Failed fixation of fracture GERD (gastroesophageal reflux disease) Gout Hay fever History of deep vein thrombosis of lower extremity HLD (hyperlipidemia) Hypothyroidism Iron deficiency anemia Iron deficiency anemia due to chronic blood loss Left ventricular diastolic dysfunction Leg wound, left Macular degeneration Non-pressure chronic ulcer of left calf with fat layer exposed Nonrheumatic aortic (valve) stenosis Osteoarthritis Pleural plaque Presence of cardiac pacemaker Pulmonary hypertension Pulmonary nodule Right knee DJD Secondary pulmonary arterial hypertension Severe aortic stenosis Sick sinus syndrome due to SA node dysfunction Skin cancer Traumatic open wound of right lower leg with infection Venous ulcer with fat layer exposed Past Surgical History Surgical History Aortic valve replaced H/O hernia repair H/O prostatectomy H/O shoulder surgery H/O total knee replacement History of appendectomy History of appendectomy History of carpal tunnel surgery History of hernia repair History of left heart catheterization (02/25/22) History of prostatectomy History of total knee replacement History of total left hip replacement History of total left hip replacement Surgical History: - Family History Summary Family History Father Heart disease Colon cancer Sister Diabetes Mother Breast cancer Social History Smoking History Smoking Status: Never smoker Occupation 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 (List type of work 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):: 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 Hobbies, Recreation, Social Activities Hobbies: Woodworking Social Environment Current Living Arrangements Living Environment:: Spouse Children How many children do you have?: 3 Do any of your children live nearby?: Yes Safety Do you feel safe in your surroundings?: Yes Assistance Do you need any assistance at home?: no Review of Systems Review of Systems Hints Review of Present Symptoms: Reports Shortness of Breath at Rest, Shortness of Breath with Exertion, Fatigue, Appetite - Normal and Sleep - Normal; Denies PVD, Operative Discomfort, Angina, Wound Healing, Dizziness/Lightheadedness, Heart Arrhythmia/Irregularities, Appetite - Special Diet or Sexual Changes Pain Is Patient Pain Free?: Yes Pain Location: other (arthritis) Pain Level: 6/10 Risk Factor Assessment Chief Complaint Chief Complaint: Heart valve replacement Vital Signs Pulse Ox: 98 Blood Pressure: 142/77 Pulse Pulse Rate: 90 Hypertension How long have you been treated?: 10 years Blood Pressure Sitting - Right Arm: 142/77 Obesity Height: 5 ft 8 in Weight:: 175 lb Weight in Pounds: 175.0 lbs Body Mass Index (BMI): 26.6 Nutritional Referral for Obesity: No Physical Inactivity Physical Inactivity: Recreational activity Risk Stratification Risk Guidelines: Lowest Risk: Risk Factor for Smoking, Moderate Risk: Risk Factor for Diabetes, Risk Factor for Obesity, Risk Factor for Sedentary Lifestyle and Risk Factor for Depression and Highest Risk: Risk Factor for Dyslipidemia and Risk Factor for Hypertension For Smoking Smoking Risk Guidelines For Dyslipidemia Dyslipidemia Risk Guidelines For Diabetes Mellitus Diabetes Risk Guidelines For Obesity/Overweight Obesity/Overweight Risk Guidelines For Hypertension Hypertension Risk Guidelines For Sedentary Lifestyle Sedentary Lifestyle Risk Guidelines For Depression Depression Risk Guidelines Family History Family History Father Heart disease Colon cancer Sister Diabetes Mother Breast cancer Motivation Motivation to Participate On a scale of 1 to 10, how prepared are you to commit to attending program?: 8 What do you see as barriers to successfully being able to complete the program?: nothing What do you see as the benefits of succesfully completing the program? In other words, what do you hope to get out of participating in the program?: more energy, endurance Are there issues you are dealing with that will interfere with completing the program?: no Do you have a spouse or signficant other, family or friends who will help support you to complete the program?: yes
[2023-09-12 13:24] VITALS: BP 142/77; PULSE 90; O2SAT 98
--- NOTE | 2023-09-12 13:24 | CR.ITP_ITS ---
Diagnosis General Information Admitting Diagnosis: Heart valve replacement Personal Learning Style:: Audio/Visual Barriers to Learning: Vision Impairment Stage of change r/t lifestyle modifications:: Contemplation Gave educational material for:: Treating Heart Disease, How The Heart Works, What it means to have Heart Disease, How Coronary Artery Disease is Diagnosed, Heart Procedures, What Heart Medications Do, Risk Factors & Modifications, Living an Active Life, Nutrition, Emotions & Heart Disease, Stress Management & Relaxation and Sleep Disorders & Heart Disease Education/Goals Cardiac Rehabilitation Goals Personal Goals: Initial Assessment: Improve energy level and Improve diet and eating habits (eat healthier) Scale for measuring improvement of personal goals Diagnosis & Disease Process Outcomes/Goals: Pt IDs own risk factors & lifestyle modifications by Session 10, Verbalizes symptoms of angina & response by session 3., Pt independently manages and Other Additional Outcomes/Goals: Plan/Interventions: Assist Pt to ID & engage in lifestyle modification to reduce CVD risk, Instruct on individual risk factors, Review symptoms of angina & emergency actions, Review secondary diagnosis & identify educational needs. and Other see comment 30 day Reassessments:: Not Met 30 day Reassessments:: Not Met 30 day Reassessments:: Not Met 30 day Reassessments:: Not Met Final Reassessments:: Not Met Safety Referral to Physical Therapy: No Referral to [facility] Case Management: No Fall Risk Assessed:: Yes Assistive Devices:: Cane Exercise - Initial Assessment Visit Date of Eval: 09/12/23 (initial eval ) Mets: Pre-: >3 METS for 30 minutes by discharge, >5 METS for 30 minutes by discharge, >7 METS for 30 minutes by discharge and Unable to meet goal due to: (see comment below) Physician Prescribed Exercise Modalities: Airdyne, NuStep, SciFit and Lateral Salon Customer Experience Specialist Frequency: 3x/week for 12 weeks [36 sessions] Intensity: 60-80% of age predicted maximum heart rate reserve Duration: 30 - 45 minutes Current METSs:: 3 Target Heart Rate:: 88-102 Resting Blood Pressure: 142/77 EKG Type: atrial sensed ventricualr paced rhythm Outcomes & Goals Goals:: Verbalizes understanding of THR, RPE & goal METS by session 6, Documents in home exercise log/reports 30 min aerobic 5 day/wk by DC, Demonstrates accurate pulse taking by DC and Other additional outcome/goals: see below Intervention & Plan Exercise Program Goals: Instruct on personal THR & RPE, Instruct on MET level & personal MET goal, Show patient to take own pulse /validate performance until accurate, Instruct on home exercise and Other additional plan/int Physical Activity Home Exercise Physical Activity - Home Exercise: Safe Exercise, Warm-up, Self-monitoring, Cool-Down, Home Exercise > 30 min Daily and Sitting Time <3 hours/daily Outcomes & Goals Outcomes/Goals: Demonstrates correct Warm-up/exercise Cool-Down (S3) if = 2.5 METs, Verbalizes symptoms of exercise intolerance by Session 3 (S3), Demonstrate safe equipment use (S3) & follows exercise prescrition (6) and Other: See below Intervention & Plan Plan/Intervention: Instruct warm-up & cool-down if exercising at > 2 METs, Instruct on symptoms of exercise intolerance & actions to take, Instruct & monitor on saf, Assess intial functional capacity & safety risk and Other See below Nutrition - Initial Assessment Program Goals Nutrition Program Goals Patient has diagnosis of Hyperlipidemia (ICD E78)?: No Visit Date of Eval: 09/12/23 (initial eval ) Cholesterol/Lipids (Other Core Measures) Determine presence & major risk factors that modify LDL goal: Hypertension or hypertensive medication, Low HDL cholesterol <40 mg/dL*, Family history of premature CHD in Male < 55 years: female <65 yearsFa and Age men > 45 years; women >/= 55 years Outcomes/Goals: Pt IDs own risk factors & lifestyle modifications by Session 10, Verbalizes symptoms of angina & response by session 3., Pt independently manages and Other Additional Outcomes/Goals: Intervention/Plan: Advocate for lipid panel cholesterol medication if applicable, Instruct on personal lipid levels & lipid goals/NCEP guidelines, Instruct on cholesterol and Other additional plan/int Referral to dietitian:: No Diabetes (Other Core Measures) Diabetes Type: Not Applicable Weight Mgt (Other Care) Height: 5 ft 8 in Weight:: 175 lb BMI: 26.6 Diagnosis Overweight/Obesity BMI> 30% ICD-10 E66: No Diagnosis High BMI/Morbid Obesity BMI> 35% ICD-10 Z68: No Outcomes/Goals: Pt sets, maintains & shows weight loss goal & trend during rehab and Other additional outcomes/goals Intervention/Plan: Instruct on ideal BMI & set weight loss goal w/patient, Assist pt to ID & incorporate diet changes for weight loss by S9, Refer to Structured Weight Loss program as appropriate, Encourage goal of using 250- 300dcal per session for weight loss and Other additional plan/interventions Healthy Eating Habits Will attend diet classes:: Yes Outcomes/Goals:: Consume diet rich in vegs,fruits,whole grain/high fiber,fish,lean meat, Limit sat/trans fats,cholesterol & added salts & sugars and Other additional outcome/goals: Intervention/Plan:: Assess current eating habits and Other Additional plan/interventions Education Gave educational materials for:: Signs & symptoms of hypoglycemia, Signs & symptoms of hyperglycemia, Relate diabetes to coronary artery disease and Healthy eating Core - Initial Assessment Visit Date of Eval: 09/12/23 (initial eval ) Medication Compliance Preventative Medication(s):: Aspirin and ARB (Angiotensi Rcap) H/O mental health issues: depression, anxiety, or addiction?: No Doesn?t believe in the benefits of treatment?: No Believes medications are unnecessary or harmful?: No Has a concern about medication side effects?: No Expresses concern over the cost of medications?: No Outcomes/Goals: Verbalizes medications,desired effect & common side effects @ DC, Pt self-reports following medication regimen, Keeps card in wallet w/med ications listed by DC and Other additional outcome/goals: Interventions/plans: Instruct on medication effects & side effects, Review medication list w/patient every two weeks, Instruct importance of taking meds as ordered & assist problem solving and Other additional Tobacco Use Tobacco Use: Non-smoker Hypertension Hypertension Diagnosis:: Hypertension ICD-10 I10 Resting Blood Pressure:: 142/77 [place] [employer] Hypertension Guidelines Outcomes/Goals: Able to verbalize/achieve optimal blood pressure <130/80, Incorporates diet changes & exercise for blood pressure control by DC and Other additional outcomes/goals Interventions/plan: Instruct on optimal blood pressure, hypertension & medications, Instruct on effects of sodium, alcohol, stress, exercise &hypertension and Other additional plan/interventions Tobacco Cessation Referral Smoking Cessation Referral:: No Individual Education/Counseling:: No Education Schedule Given:: Yes Psychosocial - Initial Assess VIsit Date of Eval: 09/12/23 (initial eval ) History of previous Mental disease:: No Target Goals Target Goals Outcomes/Goals: See list Psychosocial Outcomes/Goals:: ID's personal stressors & 2 strategies to manage stress by discharge and Other Additional outcome/goals: Intervention/Plan: See List Interventions/Plan:: Assess stressors,coping strategies & signs of derpression on admission, Instruct/assist pt to develop coping & 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 Little interest or pleasure in doing things: Not at all 2. Feeling down, depressed, or hopeless: Several days 3. Trouble falling or staying asleep, or sleeping too much: Several days 4. Feeling tired or having little energy: Not at all 5. Poor appetite or overeating: Not at all 6. Feeling bad about yourself -- or that you are a failure or have let yourself or your family down: Not at all 7. Trouble concentrating on things, such as reading the newspaper or watching television: Not at all 8. Moving or speaking so slowly that other people could have noticed. Or the opposite - being so fidgety or restless that you have been moving around a lot more than usual: Not at all 9. Thoughts that you would be better off , or of hurting yourself in some way: Not at all How difficult have these problems made it for you to do your work, take care of things at home, or get along with other people?: Not difficult at all Total Score: 2 ROBERT-Q SV Test Statements CAD is a disease of the arteries in the heart: False Examples of risk factors for heart disease: True Angina is chest pain or discomfort: False The benefits of resistance training include: True Eating more meat and dairy products: False Anti-platelet medications such as aspirin are important: True The only effective way to manage stress: False An exercise warm-up slowly increases heart rate: True Prepared, processed foods usually have high sodium: True Depression is common after a heart attack: True The statin medications lower cholesterol: True To control blood pressure, lower the amount of sodium: True If someone gets chest discomfort during walking: True Transfats are partially hydrogenated vegetable oils: True Sleep apnea that is not treated increases the risk: False To control cholesterol, one should become a vegetarian: False Someone knows if he/she is exercising at the right level: True Diabetes cannot be prevented with exercise & health eating: False Stress is a large risk for heart attack: True A diet that can help lower blood pressure is rich in: True Total Score Total Correct Responses: 18 Self-Efficacy 6-Item Scale Initial Assessment: We would like to know how confident you are in doing certain activities. Please select your confidence level for: Fatigue Select Number: 8 Physical Discomfort or Pain Select Number: 8 Emotional Distress Select Number: 6 Other Symptoms or Health Problems Select Number: 6 Different Tasks and Activities Select Number: 9 Medication Select Number: 9 Total Score:: 7 Nutrition Survey Nutrition Survey Instructions Scoring Instructions Nutrition Survey Initial: Have you lost >10 lbs over the past 2 months without trying?: No Are you following a special diet at home for diabetes, low fat, or low salt?: No Are you interested in meeting with a dietitian for help understanding your diet?: No Do you eat less than 3 meals a day?: No Do you eat fatty meats (perez, sausage, ribs, etc), fried foods, desserts, large amounts of salad dressings, margarine, butter, or cheese most days?: No Do you have food allergies? [Enter types in comment field]: No Do you eat in restaurants more than 3 times a week?: No Do you season food with salt, seasoning salt, or garlic salt?: Yes Do you used canned, boxed, frozen meals, or soups, seasoning packets?: Yes Total Score:: 2 Exercise - 30-day Assessment Physician Prescribed Exercise Current METSs:: 3 Target RPE 12-16:: 88-102 Exercise - Final/Discharge Physician Prescribed Exercise Modalities: Airdyne, NuStep, SciFit and Lateral Salon Customer Experience Specialist Frequency: 3x/week for 12 weeks [36 sessions] Intensity: 60-80% of age predicted maximum heart rate reserve Current METSs:: 3 Target Heart Rate:: 88-102 Nutrition - 30-Day Assessment Weight Mgt (Other Care) Height: 5 ft 8 in Weight:: 175 lb BMI: 26.6 Nutrition - 60-Day Assessment Weight Mgt (Other Care) Height: 5 ft 8 in Weight:: 175 lb BMI: 26.6 Core - Final Assessment Hypertension Resting Blood Pressure:: 142/77 [place] [employer] Hypertension Guidelines Core - 60-Day Assessment Hypertension Resting Blood Pressure:: 142/77 [place] [employer] Hypertension Guidelines Psychosocial - 30-Day Assess Target Goals Target Goals Psychosocial - 60-Day Assess Target Goals Target Goals Psychosocial - 90-Day Assess Target Goals Target Goals Psychosocial - Final Assessmen Target Goals Target Goals Nutrition - 90-Day Assessment Weight Mgt (Other Care) Height: 5 ft 8 in Weight:: 175 lb BMI: 26.6 Nutrition - Final Assessment Program Goals Patient has diagnosis of Hyperlipidemia (ICD E78)?: No Weight Mgt (Other Care) Height: 5 ft 8 in Weight:: 175 lb BMI: 26.6
[2023-09-12 14:04] VITALS: BP 142/77; BMI 26.6
[2023-09-12 14:05] VITALS: BMI 26.6
== END | disposition home or self-care (01) ==
LOC: CR 12:48
PROVIDERS: PCP Internal Medicine; Referring Provider Internal Medicine Cardiovascular Disease; Visit Provider Internal Medicine Cardiovascular Disease
DX: Z00.00 Encounter for general adult medical examination without abnormal findings (principal)

== ENCOUNTER 2023-10-15 13:00 | Outpatient (RCR) | payer MEDICARE, SELFPAY ==
[2023-09-12 14:04] VITALS: BMI 26.6
--- NOTE | 2023-10-15 11:45 | CR.ITP_ITS ---
Exercise - Initial Assessment Visit Session #:: 5 Physician Prescribed Exercise Modalities: SciFit Stepper and SciFit Pro-II Ergometer Nutrition - Initial Assessment Weight Mgt (Other Care) Height: 5 ft 8 in Weight:: 175 lb BMI: 26.6 Psychosocial - Initial Assess Target Goals Target Goals Patient Health Questionnaire PHQ-9 Screening 30-Day Re-eval Assessment: 1. Little interest or pleasure in doing things: Not at all 2. Feeling down, depressed, or hopeless: Several days 3. Trouble falling or staying asleep, or sleeping too much: Several days 4. Feeling tired or having little energy: Not at all 5. Poor appetite or overeating: Not at all 6. Feeling bad about yourself -- or that you are a failure or have let yourself or your family down: Not at all 7. Trouble concentrating on things, such as reading the newspaper or watching television: Not at all 8. Moving or speaking so slowly that other people could have noticed. Or the opposite - being so fidgety or restless that you have been moving around a lot more than usual: Not at all 9. Thoughts that you would be better off , or of hurting yourself in some way: Not at all How difficult have these problems made it for you to do your work, take care of things at home, or get along with other people?: Not difficult at all Total Score: 2 Self-Efficacy 6-Item Scale 30-Day Re-eval Assessment: We would like to know how confident you are in doing certain activities. Please select your confidence level for: Fatigue Select Number: 8 Physical Discomfort or Pain Select Number: 8 Emotional Distress Select Number: 6 Other Symptoms or Health Problems Select Number: 6 Different Tasks and Activities Select Number: 9 Medication Select Number: 9 Total Score:: 7 Nutrition Survey Nutrition Survey Instructions Scoring Instructions Exercise - 30-day Assessment Visit Date of Eval: 10/15/23 Session #:: 5 Physician Prescribed Exercise Modalities: SciFit Stepper and SciFit Pro-II Ergometer Frequency: 3x/week for 12 weeks [36 sessions] Intensity: 60-80% of age predicted maximum heart rate reserve Duration: 30 - 45 minutes Current METSs:: 2.2 Target Heart Rate:: 88-102 Current RPE:: 11-12 Maximum Excercise HR:: 116 Resting Blood Pressure: 160/74 Maximum Exercise Blood Pressure: 160/74 EKG Type: Ventricular paced without ectopy Outcomes & Goals Goals:: Verbalizes understanding of THR, RPE & goal METS by session 6, Documents in home exercise log/reports 30 min aerobic 5 day/wk by DC, Demonstrates accurate pulse taking by DC and Other additional outcome/goals: see below Intervention & Plan Exercise Program Goals: Instruct on personal THR & RPE, Instruct on MET level & personal MET goal, Show patient to take own pulse /validate performance until accurate, Instruct on home exercise and Other additional plan/int 30-day Reassessments 30 day Reassessments:: Progressing Reassessment Notes & Comments:: RPE explained Physical Activity Home Exercise Physical Activity - Home Exercise: Safe Exercise, Warm-up, Self-monitoring, Cool-Down, Home Exercise > 30 min Daily and Sitting Time <3 hours/daily Outcomes & Goals Outcomes/Goals: Demonstrates correct Warm-up/exercise Cool-Down (S3) if = 2.5 METs, Verbalizes symptoms of exercise intolerance by Session 3 (S3), Demonstrate safe equipment use (S3) & follows exercise prescrition (6) and Other: See below Intervention & Plan Plan/Intervention: Instruct warm-up & cool-down if exercising at > 2 METs, Instruct on symptoms of exercise intolerance & actions to take, Instruct & monitor on saf, Assess intial functional capacity & safety risk and Other See below 30-day Reassessments 30 day Reassessments:: Progressing Reassessment Notes & Comments:: warm up encouraged Exercise - 60-day Assessment Physician Prescribed Exercise Modalities: SciFit Stepper and SciFit Pro-II Ergometer Exercise - 90-day Assessment Physician Prescribed Exercise Modalities: SciFit Stepper and SciFit Pro-II Ergometer Exercise - Final/Discharge Physician Prescribed Exercise Modalities: SciFit Stepper and SciFit Pro-II Ergometer Nutrition - 30-Day Assessment Program Goals Nutrition Program Goals Patient has diagnosis of Hyperlipidemia (ICD E78)?: No Visit Date of Eval: 10/15/23 Session #:: 5 Cholesterol/Lipids (Other Core Measures) Determine presence & major risk factors that modify LDL goal: Hypertension or hypertensive medication, Low HDL cholesterol <40 mg/dL*, Family history of premature CHD in Male < 55 years: female <65 yearsFa and Age men > 45 years; women >/= 55 years Outcomes/Goals: Pt IDs own risk factors & lifestyle modifications by Session 10, Verbalizes symptoms of angina & response by session 3., Pt independently manages and Other Additional Outcomes/Goals: Intervention/Plan: Advocate for lipid panel cholesterol medication if applicable, Instruct on personal lipid levels & lipid goals/NCEP guidelines, Instruct on cholesterol and Other additional plan/int Referral to dietitian:: No 30-day Reassessments:: Progressing Reassessment Notes & Comments:: pt to attend nutrition class Diabetes (Other Core Measures) Diabetes Type: Not Applicable Weight Mgt (Other Care) Height: 5 ft 8 in Weight:: 175 lb BMI: 26.6 Diagnosis Overweight/Obesity BMI> 30% ICD-10 E66: No Diagnosis High BMI/Morbid Obesity BMI> 35% ICD-10 Z68: No Outcomes/Goals: Pt sets, maintains & shows weight loss goal & trend during rehab and Other additional outcomes/goals Intervention/Plan: Instruct on ideal BMI & set weight loss goal w/patient, Assist pt to ID & incorporate diet changes for weight loss by S9, Refer to Structured Weight Loss program as appropriate, Encourage goal of using 250- 300dcal per session for weight loss and Other additional plan/interventions 30 day Reassessments:: Progressing Reassessment Notes & Comments:: pt to attend nutrition class Healthy Eating Habits Will attend diet classes:: Yes Outcomes/Goals:: Consume diet rich in vegs,fruits,whole grain/high fiber,fish,lean meat, Limit sat/trans fats,cholesterol & added salts & sugars and Other additional outcome/goals: Intervention/Plan:: Assess current eating habits and Other Additional plan/interventions 30-day Reassessments:: Progressing Reassessment Notes & Comments:: pt to attend nutrition class Education Gave educational materials for:: Signs & symptoms of hypoglycemia, Signs & symptoms of hyperglycemia, Relate diabetes to coronary artery disease and Healthy eating Nutrition - 60-Day Assessment Weight Mgt (Other Care) Height: 5 ft 8 in Weight:: 175 lb BMI: 26.6 Core - 30-Day Assessment Visit Date of Eval: 10/15/23 Session #:: 5 Medication Compliance Preventative Medication(s):: Aspirin and ARB (Angiotensi Rcap) H/O mental health issues: depression, anxiety, or addiction?: No Doesn?t believe in the benefits of treatment?: No Believes medications are unnecessary or harmful?: No Has a concern about medication side effects?: No Expresses concern over the cost of medications?: No Outcomes/Goals: Verbalizes medications,desired effect & common side effects @ DC, Pt self-reports following medication regimen, Keeps card in wallet w/medications listed by DC and Other additional outcome/goals: Interventions/plans: Instruct on medication effects & side effects, Review medication list w/patient every two weeks, Instruct importance of taking meds as ordered & assist problem solving and Other additional 30-day Reassessments:: Progressing Reassessment Notes & Comments:: pt encouraged to take his meds Tobacco Use Tobacco Use: Non-smoker Hypertension Hypertension Diagnosis:: Hypertension ICD-10 I10 Resting Blood Pressure:: 160/74 [place] [employer] Hypertension Guidelines Peak Exercise Blood Pressure:: 160/74 Outcomes/Goals: Able to verbalize/achieve optimal blood pressure <130/80, Incorporates diet changes & exercise for blood pressure control by DC and Other additional outcomes/goals Interventions/plan: Instruct on optimal blood pressure, hypertension & medications, Instruct on effects of sodium, alcohol, stress, exercise &hypertension and Other additional plan/interventions 30 day Reassessments:: Progressing Reassessment Notes & Comments:: pt encouraged to take his meds Tobacco Cessation Referral Smoking Cessation Referral:: No Individual Education/Counseling:: No Education Schedule Given:: Yes Psychosocial - 30-Day Assess VIsit Date of Eval: 10/15/23 Session #:: 5 History of previous Mental disease:: No Target Goals Target Goals Outcomes/Goals: See list Psychosocial Outcomes/Goals:: ID's personal stressors & 2 strategies to manage stress by discharge and Other Additional outcome/goals: Intervention/Plan: See List Interventions/Plan:: Assess stressors,coping strategies & signs of derpression on admission, Instruct/assist pt to develop coping & personal stress Mgt s trategies, Refer to Behavioral Health if appropriate, Refer to Physician if appropriate, Instruct patient to recognize signs & symptoms of depression, Instruct patient to recog and Other additional plan/intervention 30-day Reassessments: 30 day Reassessments:: Met Psychosocial - 60-Day Assess Target Goals Target Goals Outcomes/Goals: See list Psychosocial Outcomes/Goals:: ID's personal stressors & 2 strategies to manage stress by discharge and Other Additional outcome/goals: Psychosocial - 90-Day Assess Target Goals Target Goals Psychosocial - Final Assessmen Target Goals Target Goals Nutrition - 90-Day Assessment Weight Mgt (Other Care) Height: 5 ft 8 in Weight:: 175 lb BMI: 26.6 Nutrition - Final Assessment Weight Mgt (Other Care) Height: 5 ft 8 in Weight:: 175 lb BMI: 26.6
[2023-10-15 11:57] VITALS: BP 160/74; BMI 26.6
== END 2023-10-17 23:59 ==
LOC: CR 13:00
PROVIDERS: PCP Internal Medicine; Referring Provider Internal Medicine Cardiovascular Disease; Visit Provider Internal Medicine Cardiovascular Disease
DX: Z95.3 Presence of xenogenic heart valve (principal)
CPT/HCPCS: 93798

== ENCOUNTER 2023-10-20 10:33 | Outpatient (RCR) | payer MEDICARE, SELFPAY ==
[2023-10-18 01:33] VITALS: BP 160/74
== END 2023-11-16 23:59 ==
LOC: CR 10:33
PROVIDERS: PCP Internal Medicine; Referring Provider Internal Medicine Cardiovascular Disease; Visit Provider Internal Medicine Cardiovascular Disease
DX: Z95.3 Presence of xenogenic heart valve (principal)
CPT/HCPCS: 93798

== ENCOUNTER → 2024-05-14 | Outpatient (CLI) | payer MEDICARE, SELFPAY ==
[2024-02-11 09:45] VITALS: BMI 26.6
[2024-05-14 14:02] LABS: Free T3 2.3 pg/mL (2.18-3.98); T4 Free Direct 1.01 ng/dL (0.76-1.46)
== END | disposition home or self-care (01) ==
LOC: LAB 12:09
PROVIDERS: PCP Internal Medicine; Referring Provider Internal Medicine; Visit Provider Internal Medicine
DX: E03.9 Hypothyroidism, unspecified (principal)
CPT/HCPCS: 36415; 84439; 84443; 84481

== ENCOUNTER → 2024-07-12 | Outpatient (CLI) | payer MEDICARE, SELFPAY ==
[2024-02-11 09:45] VITALS: BMI 26.6
--- NOTE | 2024-07-12 09:52 | ECHOD_ITS ---
Reason For Study Reason For Study: AORTIC VALVE STENOSIS Procedure This was a 2D Doppler, Color Flow transthoracic echocardiogram. The study was technically difficult. Exam performed in department. Left Ventricle Normal LV size. The left ventricular ejection fraction is 60 %. Stage 1 diastolic dysfunction. Right Ventricle Normal RV size. Normal systolic function. Atria Normal left atrium. Normal right atrium. Mitral Valve Normal mitral valve. Tricuspid Valve Normal tricuspid valve. Mild (1+) tricuspid valve insufficiency. Pulmonary artery systolic pressure is 40 mmHg. Aortic Valve Trisinus/trileaflet aortic valve. Mild aortic stenosis. Peak aortic valve gradient 24 mmHg. Mean aortic valve gradient 13 mmHg. Pericardium/Pleural No pericardial effusion. MMode/2D Measurements & Calculations LVIDd: 4.6 cm IVSd: 0.97 cm LVOT diam: 2.0 cm LVIDs: 3.0 cm LVPWd: 1.0 cm LVOT area: 3.2 cm2 RVDd: 3.8 cm FS: 34.8 % Ao root diam: 3.0 cm LAV(MOD-bp): 63.7 ml LVAd ap4: 25.1 cm2 LAV(MOD-bp) Indexed: 32.7 ml/m2 LVLd ap4: 7.1 cm LAV(MOD-sp2): 63.0 ml EDV(MOD-sp4): 72.6 ml LAV(MOD-sp4): 61.3 ml EDV(sp4-el): 74.9 ml LVAs ap4: 14.2 cm2 LVLs ap4: 6.2 cm ESV(MOD-sp4): 27.0 ml ESV(sp4-el): 27.6 ml EF(MOD-sp4): 62.8 % EF(sp4-el): 63.2 % SV(MOD-sp4): 45.6 ml SV(sp4-el): 47.3 ml LA A4 area: 21.7 cm2 SI(MOD-sp4): 23.4 ml/m2 LA dimension(2D): 4.0 cm TAPSE: 1.8 cm RA A4 area: 14.1 cm2 Time Measurements MV dec time: 0.30 sec Doppler Measurements & Calculations MV E max noah: 152.4 cm/sec Lat Peak E' Noah: 5.6 cm/sec Med Peak E' Noah: 5.2 cm/sec MV A max noah: 212.4 cm/sec E/E' lat: 27.0 E/E' med: 29.3 MV E/A: 0.72 MV V2 max: 243.8 cm/sec MV P1/2t max noah: 152.5 cm/sec Ao V2 max: 246.4 cm/sec MV max P.8 mmHg MV P1/2t: 112.5 msec Ao max P.3 mmHg MV V2 mean: 172.6 cm/sec Ao V2 mean: 180.2 cm/sec MV mean P.8 mmHg MV dec slope: 397.0 cm/sec2 Ao mean P.5 mmHg MV V2 VTI: 51.9 cm MVA(P1/2t): 2.0 cm2 Ao V2 VTI: 46.1 cm AV (velocity ratio): 0.74 MVA(VTI): 2.1 cm2 FABY(I,D): 2.3 cm2 FABY(V,D): 2.1 cm2 LV V1 max: 166.1 cm/sec SV(LVOT): 107.5 ml PA V2 max: 189.1 cm/sec LV V1 max P.1 mmHg LV V1 mean P.3 mmHg LV V1 mean: 117.2 cm/sec LV V1 VTI: 34.0 cm TR max noah: 304.2 cm/sec TR max P.0 mmHg ECHO/Echo Complete Interpretation Summary Normal LV size. The left ventricular ejection fraction is 60 %. Normal RV size. Mild aortic stenosis. Peak aortic valve gradient 24 mmHg. Mean aortic valve gradient 13 mmHg. Stage 1 diastolic dysfunction. Pulmonary artery systolic pressure is 40 mmHg. Ordering Physician: DIAMOND WAGONER Referring Physician: Aicha Harris Performed By: Mary Clark RDCS
== END | disposition home or self-care (01) ==
LOC: CVS 09:52
PROVIDERS: PCP Internal Medicine; Referring Provider Nurse Practitioner Adult Health; Visit Provider Nurse Practitioner Adult Health
DX: I35.0 Nonrheumatic aortic (valve) stenosis (principal)
CPT/HCPCS: 93306

== ENCOUNTER → 2024-07-16 | Outpatient (CLI) | payer MEDICARE, SELFPAY ==
[2024-02-11 09:45] VITALS: BMI 26.6
[2024-07-16 14:00] LABS: Anion Gap 13 (5-15); BUN 35 mg/dL (4-19); BUN/Creat Ratio 23.2 RATIO (10-20); Calcium 8.8 mg/dL (7.6-11.0); Carbon Dioxide 19.4 mmol/L (22.0-29.0); Chloride 104 mmol/L (96-108); Creatinine, Serum 1.51 mg/dL (0.70-1.20); EST Glomerular Filtration Rate 45 (>60); Glucose 102 mg/dL (70-99); Potassium 4.6 mmol/L (3.3-5.1); Sodium Level 136 mmol/L (133-145)
[2024-07-16 15:43] LABS: Protein, Urine (Random) 10.7 mg/dL (0.0-12.0); Protein:Creat Ratio 84 mg/g CRE (0-200)
== END | disposition home or self-care (01) ==
LOC: LAB 12:32
PROVIDERS: PCP Internal Medicine; Referring Provider Internal Medicine Nephrology; Visit Provider Internal Medicine Nephrology
DX: N18.32 Chronic kidney disease, stage 3b (principal)
CPT/HCPCS: 36415; 80048; 82570; 84156

== ENCOUNTER → 2024-08-25 | Outpatient (CLI) | payer MEDICARE, SELFPAY ==
[2024-02-11 09:45] VITALS: BMI 26.6
[2024-08-25 14:42] LABS: Anion Gap 10 (5-15); BUN 29 mg/dL (4-19); Calcium,Total 9.1 mg/dL (7.6-11.0); Carbon Dioxide 19.6 mmol/L (21.0-32.0); Chloride 109 mmol/L (98-108); Cholesterol 183 mg/dL (<=200); Creatinine, Serum 1.25 mg/dL (0.70-1.20); EST Glomerular Filtration Rate 56 (>60); Glucose 96 mg/dL (70-99); High Density Lipoprotein 56 mg/dL; Low Density Lipoprotein Calc. 106 mg/dL; Potassium 4.9 mmol/L (3.3-5.1); Sodium Level 139 mmol/L (133-145); Triglycerides 107 mg/dL; Very Low Density Lipoprotein 21 mg/dL (5-40); cholesterol:hdl ratio screen 3.28
== END | disposition home or self-care (01) ==
LOC: LAB 09:15
PROVIDERS: PCP Internal Medicine; Referring Provider Student in an Organized Health Care Education/Training Program; Visit Provider Student in an Organized Health Care Education/Training Program
DX: E78.5 Hyperlipidemia, unspecified (principal); I10 Essential (primary) hypertension
CPT/HCPCS: 36415; 80048; 80061

== ENCOUNTER → 2024-10-20 | Outpatient (CLI) | payer MEDICARE, SELFPAY ==
[2024-02-11 09:45] VITALS: BMI 26.6
[2024-10-20 13:00] LABS: Anion Gap 11 (5-15); BUN 28 mg/dL (4-19); BUN/Creat Ratio 18.9 RATIO (10-20); Carbon Dioxide 17.9 mmol/L (21.0-32.0); Chloride 108 mmol/L (98-108); EST Glomerular Filtration Rate 45 (>60); Glucose 93 mg/dL (70-99); Potassium 4.8 mmol/L (3.3-5.1); Sodium Level 137 mmol/L (133-145)
== END | disposition home or self-care (01) ==
LOC: LAB 11:41
PROVIDERS: PCP Internal Medicine; Referring Provider Student in an Organized Health Care Education/Training Program; Visit Provider Student in an Organized Health Care Education/Training Program
DX: I10 Essential (primary) hypertension (principal)
CPT/HCPCS: 36415; 80048